=== PATIENT | female | born 1940 | race Caucasian/White ===

== ENCOUNTER 2023-08-08 02:11 | Outpatient (REF) | payer MEDICARE, SELFPAY ==
[2023-08-08 08:22] LABS: Basophils Percent Auto 0.6 % (0.2-2.0); Eosinophils Absolute Auto 0.3 10^3/uL (0.0-0.7); Eosinophils Percent Auto 3.9 % (0.9-7.0); Hematocrit 27.6 % (36.0-48.0); Hemoglobin 8.7 g/dL (12.0-16.0); Immature Granulocytes Abs Auto 0.07 10^3/uL (0.00-0.03); Lymphocytes Percent Auto 13.1 % (20.5-60.0); Mean Corpuscular HGB Conc 31.5 g/dL (29.9-35.2); Mean Corpuscular Hemoglobin 29.9 pg (26.7-34.0); Mean Corpuscular Volume 94.8 fL (81.0-99.0); Mean Platelet Volume 9.2 fL (9.5-13.5); Monocytes Absolute Auto 0.7 10^3/uL (0.3-0.8); Monocytes Percent Auto 9.9 % (1.7-12.0); Neutrophils Absolute Auto 5.2 10^3/uL (1.4-6.5); Neutrophils Percent Auto 71.5 % (43.0-75.0); Platelet Count 284 10^3/uL (150-450); Red Blood Count 2.91 10^6/uL (4.20-5.40); Red Cell Distribution Width 14.3 % (11.0-15.0); White Blood Count 7.3 10^3/uL (4.0-11.0)
[2023-08-08 08:34] LABS: Estimated Average Glucose 97 mg/dL
[2023-08-08 08:49] LABS: Alanine Aminotransferase 27 U/L (14-59); Albumin Globulin Ratio 0.7; Albumin Level 2.7 g/dL (3.4-5.0); Alkaline Phosphatase 72 U/L (46-116); Anion Gap 7.3; Aspartate Amino Transferase 21 U/L (15-37); BUN Creatinine Ratio 17.1; Bilirubin Total 0.5 mg/dL (0.2-1.0); Calcium 8.8 mg/dL (8.5-10.1); Carbon Dioxide 31.7 mmol/L (21.0-32.0); Chloride 102 mmol/L (98-107); Estimated GFR (African America >60 (>=60); Estimated GFR (Non-African Ame >60 (>=60); Globulin 3.7 g/dL; Glucose 83 mg/dL (74-106); Magnesium 1.8 mg/dL (1.8-2.4); Sodium 137 mmol/L (136-145); Thyroid Stimulating Hormone 4.268 uIU/mL (0.358-3.740); Total Protein 6.4 g/dL (6.4-8.2)
[2023-08-10 13:08] LABS: Levetiracetam (Keppra), S 20.3 ug/mL (10.0-40.0)
== END 2023-08-08 02:12 | disposition home or self-care (01) ==
LOC: LAB 02:11
PROVIDERS: PCP Family Medicine; Visit Provider Family Medicine
DX: Z51.81 Encounter for therapeutic drug level monitoring (principal); I10 Essential (primary) hypertension
CPT/HCPCS: 36415; 80053; 80177; 82306; 83036; 83735; 84443; 85025

== ENCOUNTER 2023-09-08 07:25 | Emergency (ER) | payer MEDICARE, SELFPAY ==
[2023-09-08] VITALS (20 sets, daily range): BP systolic 145–199; BP diastolic 62–97; PULSE 61–80; TEMP 36.9; O2SAT 98–99; BMI 29.0
--- NOTE | 2023-09-08 07:39 | ECG_ITS ---
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
--- NOTE | 2023-09-08 07:39 | XR_ITS ---
[address] [address] Patient Name: SANDRINE ROBERT MRN: [facility]:[id number] date: 1940 Sex: F Assigned Patient Location: ED.MAIN Current Patient Location: ER Accession/Order Number: [id number] Exam Date: 09/08/2023 07:58 Report Date: 09/08/2023 08:54 At the request of: SANDEE HARVEY Procedure: XR chest 1V EXAM: XR chest 1V , 09/08/2023 HISTORY: Chest pain COMPARISON: None. TECHNIQUE: Portable AP upright x-ray of the chest. FINDINGS: Mild rotation of patient to the right. Mild enlargement of the cardiac silhouette. Mild left basal atelectasis. Moderate atherosclerotic calcification of the aortic arch. No hilar enlargement. No focal consolidation or pulmonary edema. Bilateral shoulder joint replacement. XR/XR chest 1V IMPRESSION: Mild cardiomegaly. Mild left basal atelectasis. Electronically authenticated by: AYUSH RUSSO Date: 09/08/2023 08:54
--- OUTSIDE RECORDS SUMMARY | 2023-09-08 07:39 | XMS_ITS | CCD ---
Author Organization [facility] CliniSymi Care Team Providers Care Eye Specialist Name Role Phone AGUILAR STEVENS Unavailable Unavailable MAGALY, HARDEEP M Unavailable Unavailable Andres Ud Din Unavailable Unavailable Andres Ud Din Unavailable Unavailable GUDINO, CHRISTOPHER Unavailable Unavailable GUDINO, CHRISTOPHER Unavailable Unavailable MAGALY, HARDEEP M Unavailable Unavailable MAGALY, HARDEEP M Unavailable Unavailable MAGALY, HARDEEP M Unavailable Unavailable GUDINO, CHRISTOPHER Unavailable Unavailable GUDINO, CHRISTOPHER Unavailable Unavailable GUDINO, CHRISTOPHER Unavailable Unavailable Magaly, Hardeep M Primary Care Provider [phone] ELIAS CELESTIN Referring Unavailable EDMUNDO MENDEZ Consulting Unavailab le MAGALY, HARDEEP M Primary Care Unavailable LAURIE LEMUS Admitting Unavailable LAURIE LEMUS Attending Unavailable RASHIJUNG CHUA Consulting Unavailable BETSY DUMONT Consulting Unavailable Magaly, Hardeep M. Primary Care Provider Unavailab le Magaly, Hardeep M. Attending Provider Unavailable Mercedes Man Attending Provider Unavailable Brendan Ni Attending Provider Unavailable Royce Douglas Unavailable Magaly, Hardeep Unavailable Tonia Mcdonough Unavailable Magaly, DO Hardeep M. Primary Care Provider MD Royce Douglas Attending Provider MAGALY HARDEEP Brittany Primary Care Physician [phone] Chastity Lopez Unavailable Unavailable Kourtney Lay Unavailable Unavailable Coleen Meza Unavailable Unavailable Magaly, Hardeep M Unavailable Unavailable Unavailable Hardeep Mckenzie DO Primary Care Provider Unavailable Unavailable Unavailable Primary Care Provider Unavailabl e Magaly, DO Hardeep Soto. Primary Care Provider Magaly, DO Hardeep Soto. Attending Provider [phone] PROVIDER, UNKNOWN Attending Unavailable PROVIDER, UNKNOWN Admitting Unavailable Magaly Hardeep ZHANG Primary Care Provider BEAL ., DR ROLAN Harris Admitting Unavailable BEAL ., DR ROLAN Harris Consulting Unavailable BEAL ., DR ROLAN Harris Attending Unavailable MAGALY, DR HARDEEP Soto Primary Care Unavailable MCINTYRE ., HARRIS Consulting Unavailable BEAL ., DR ROLAN Harris Attending Unavailable BEAL ., DR ROLAN Harris Admitting Unavailable MAGALY, DR HARDEEP Soto Primary Care Unavailable BEAL ., DR ROLAN Harris Admitting Unavailable BEAL ., DR ROLAN Harris Consulting Unavailable BEAL ., DR ROLAN Harris Attending Unavailable MAGALY, DR HARDEEP Soto Primary Care Unavailable BEAL ., DR ROLAN Harris Admitting Unavailable BEAL ., DR ROLAN Harris Consulting Unavailable BEAL ., DR ROLAN Harris Attending Unavailable MAGALY, DR HARDEPE Soto Primary Care Unavailable MAGALY, DR HARDEEP Soto Primary Care Unavailable BEAL ., DR ROLAN Harris Attending Unavailable BEAL ., DR ROLAN Harris Admitting Unavailable BEAL ., DR ROLAN Harris Consulting Unavailable BEAL ., DR ROLAN Harris Admitting Unavailable BEAL ., DR ROLAN Harris Attending Unavailable MCINTYRE ., HARRIS Consulting Unavailable MAGALY, DR HARDEEP Soto Primary Care Unavailable Magaly, DO Hardeep Solano Primary Care Provider Magaly, DO Hardeep Soto. Attending Provider [phone] Unavailable Unavailable Patrick Howe Unavailable Magaly, DO Hardeep Solano Primary Care Provider MD Patrick Howe Attending Provider MD Royce Douglas Attending Provider Trudy, Dr. Angélica Enriquez Attending Candi vailable Trudy, Dr. Angélica Enriquez Referring Candi vailable Magaly, Dr. Hardeep Gracia Primary Care Unavaila ble Trudy, Dr. Angélica Enriquez Attending Candi vailable Yates, Dr. Angélica Enriquez Referring Candi vailable Magaly, Dr. Hardeep Gracia Primary Care Unavaila ble Yates, Dr. Angélica Enriquez Attending Candi vailable Magaly, Dr. Hardeep Gracia Primary Care Unavaila ble McGuinn II, Dr. Joseph Hawley Attending Unavailable Magaly, Dr. Hardeep Gracia Primary Care Unavaila ble Magaly, Dr. Hardeep Gracia Primary Care Unavaila ble Yates, Dr. Angélica Enriquez Attending Candi vailable Yates, Dr. Angélica Enriquez Referring Candi vailable Magaly, Dr. Hardeep Gracia Primary Care Unavaila ble Yates, Dr. Angélica Enriquez Attending Candi vailable Yates, Dr. Angélica Enriquez Referring Candi vailable Magaly, Dr. Hardeep Gracia Primary Care Unavaila ble Michael, Theodora Unavailable Magaly, DO Hardeep Solano Primary Care Provider Magaly, DO Hardeep Solano Attending Provider Saffle, CAMERA MAKER Valerie Fields Emergency Provider Magaly, Hardeep Soto. Primary Care Unavailable Patrick Howe Attending Unavailable Patrick Howe Admitting Unavailable Magaly, Hardeep Solano Admitting Unavailable Magaly, Hardeep Solano Attending Unavailable Magaly, Hardeep Solano Primary Care Unavailable Valerie Ponce Attending Unavailable Valerie Ponce Admitting Unavailable Magaly, Hardeep Solano Primary Care Unavailable Magaly, Hardeep M. Primary Care Unavailable Royce Douglas Attending Unavailable Royce Douglas Admitting Unavailable ANIKET GARCES Attending UnavailANIKET Barragan Attending Unavailbethany e Magaly, DO Hardeep Solano Primary Care Provider Saffle, CAMERA MAKER Valerie Fields Emergency Provider Magaly DOHardeep Primary Care Provider HARDEEP MCKENZIE Primary Care Unavailable JASS PENN Admitting Unavailable STACIA DWYER Referring Unavailable KEY GRACIA Attending Unavailable [facility] Unavailable ABUBAKR SAMER Referring Unavailable [facility] Primary Care Unavailable DELFIN DOW Attending Unavailable MAGALY, [facility] Primary Care Unavailable CHRISTOPHER CASAREZ Attending Unavailable [facility] Primary Care Unavailable NOÉ LILLY Attending Unavailable [facility] Primary Care Unavailable TIFF DRAPER Attending Unavailable SELF Referring Unavailable Unavailable Primary Care Provider UnavailStacia Jennings Attending Unavailable James Nguyen Attending Unavailable Lima ROSAS Admitting Unavailable RALPH Lima Alex Attending Unavailable Do Montez Attending Unavailable Do Montez Attending Unavailable James Nguyen Attending Unavailable ROCIO MARINELLI Attending Unavailable ROCIO MARINELLI Referring Unavailable ROCIO MARINELLI Admitting Unavailable Yates, Lindsay Admitting Unavailable Yates Lindsay Attending Unavailable Barrett Bales Attending Unavailable Chidi Marrero Admitting Unavailable Traboulssi, Mourhaf Consulting Unavailable Traboulssi, Mourhaf Consulting Unavailable Traboulssi, Mourhaf Consulting Unavailable Traboulssi, Mourhaf Consulting Unavailable Traboulssi, Mourhaf Consulting Unavailable Traboulssi, Mourhaf Consulting Unavailable Traboulssi, Mourhaf Consulting Unavailable Traboulssi, Mourhaf Consulting Unavailable Traboulssi, Mourhaf Consulting Unavailable Kamadana, Dyan Consulting Unavailable Mickie Falcon Attending Unavailable GenSilver espinosaisten Admitting Unavailable Kamadana, Dyan Consulting Unavailable Kamadana, Dyan Consulting Unavailable Hajdari, Astrit H Attending Unavailable Hajdari, Astrit H Attending Unavailable Stacia Dwyer Attending Unavailable Hank Beard Attending Unavailable Hank Beard Attending Unavailable Stacia Dwyer Attending Unavailable Stacia Dwyer Attending Unavailable James Nguyen Attending Unavailable James Nguyen Attending Unavailable EVERT PERKINS Referring Unavailable PROVIDER, UNKNOWN Admitting Unavailable PROVIDER, UNKNOWN Attending Unavailable PROVIDER, UNKNOWN Attending Unavailable STACIA DWYER Referring Unavailable JANNY PEREZ Admitting Unavailable EVERT PERKINS Referring Unavailable GAVINO COTTER Admitting Unavailable PROVIDER, UNKNOWN Attending Unavailable LADONNA, EVERT Referring Unavailable PROVIDER, UNKNOWN Attending Unavailable BEL, GAVINO Admitting Unavailable LADONNA, EVERT Referring Unavailable BEL, GAVINO Admitting Unavailable PROVIDER, UNKNOWN Attending Unavailable LADONNA, EVERT Referring Unavailable BEL, GAVINO Admitting Unavailable PROVIDER, UNKNOWN Attending Unavailable STACIA DWYER Referring Unavailable JANNY PEREZ Admitting Unavailable CONSULT, IP SURGERY NEURO Consulting Unavai NYASIA Esteves Attending Unavailable REQUEST, IP OCCUPATIONAL THERAPY SERVICE Consult ing Unavailable REQUEST, IP INSPECTOR CHIEF SERVICE Consulting Unavaila ble REQUEST, IP PHYSICAL THERAPY SERVICE Consulting Unavailable CONSULT, IP GERIATRIC Consulting Unavailabl e LADONNA, EVERT Referring Unavailable PROVIDER, UNKNOWN Attending Unavailable BEL, GAVINO Admitting Unavailable LADONNA, EVERT Referring Unavailable PROVIDER, UNKNOWN Attending Unavailable BEL, GAVINO Admitting Unavailable LADONNA, EVERT Referring Unavailable BEL, GAVINO Admitting Unavailable PROVIDER, UNKNOWN Attending Unavailable PROVIDER, UNKNOWN Admitting Unavailable PROVIDER, UNKNOWN Attending Unavailable PROVIDER, UNKNOWN Attending Unavailable PROVIDER, UNKNOWN Admitting Unavailable KYMBERLY CABRERA Attending Unavailable DERICK EDWARDS Referring Unavailable PROVIDER, UNKNOWN Admitting Unavailable LADONNA, EVERT Referring Unavailable BEL, GAVINO Admitting Unavailable PROVIDER, UNKNOWN Attending Unavailable PROVIDER, UNKNOWN Attending Unavailable STACIA DWYER Referring Unavailable PROVIDER, UNKNOWN Admitting Unavailable LADONNA, EVERT Referring Unavailable BEL, GAVINO Admitting Unavailable PROVIDER, UNKNOWN Attending Unavailable LADONNA, EVERT Referring Unavailable NYASIA POPE Attending Unavailable BEL, GAVINO Admitting Unavailable [phone], IP TEAM TRAUMA Consulting Unavail able REQUEST, IP PHYSICAL THERAPY SERVICE Consulting Unavailable REQUEST, IP OCCUPATIONAL THERAPY SERVICE Consult ing Unavailable CONSULT, NEUROCRITICAL Consulting Unavailab le CONSULT, IP ENT Consulting Unavailable REQUEST, IP INSPECTOR CHIEF SERVICE Consulting Unavaila ble JANNY PEREZ Admitting Unavailable Unavailable Unavailable Unavailable Allergies Allergy Classification Reported Allergen(s) Allergy Type Date of Onset Reaction(s) Facility amLODIPine (3 sources) amLODIPine; Translations: [amlodipine] Drug Allergy 2012 Other [facility] Anti-Epileptic Agents (4 sources) Phenytoin; Translations: [phenytoin] Drug Allergy 2023 [facility] formoterol / Mometasone (2 sources) formoterol / Mometasone Drug Allergy 2014 Other, Nausea [facility] hydroCHLOROthiazide (3 sources) hydroCHLOROthiazide; Translations: [hydrochlorothiazide ] Drug Allergy 2023 Hyponatremia (disorder), Hyponatremia [facility] Labetalol (3 sources) Labetalol; Translations: [labetalol] Drug Allergy 2012 Other [facility] NIFEdipine (1 source) NIFEdipine; Translations: [nifedipine] Drug Allergy [facility] Nitrofurantoin (2 sources) Nitrofurantoin Drug Allergy 2023 Rash [facility] Serotonin Reuptake Inhibitors (SSRIs) (2 sources) Sertraline Drug Allergy 2023 Other [facility] Valproate (3 sources) Valproate; Translations: [divalproex sodium] Drug Allergy 2003 Other [facility] (6 sources) carBAMazepine; Translations: [TEGretol] Drug Allergy 2012 [facility] Repository (6 sources) phenytoin; Translations: [Dilantin] Drug Allergy 2012 [facility] (6 sources) valproate; Translations: [Depakote] Drug Allergy 2012 [facility] Rep[facility] (20 sources) amLODIPine; Translations: [amlodipine] Drug Allergy 2012 Unknown, Other [place], [place] (20 sources) carBAMazepine; Translations: [carbamazepine] Drug Allergy 2003 Itching [place], [place] (20 sources) Labetalol; Translations: [labetalol] Drug Allergy 2012 Other (See Comments), Unknown, Other [place] (20 sources) NIFEdipine; Translations: [nifedipine] Drug Allergy 2012 Unknown [place] (1 source) Phenytoin Drug Allergy 2018 Anaphylaxis [place] (20 sources) Valproate; Translations: [DIVALPROEX SODIUM] Drug Allergy 2018 Other (See Comments), Other: See Comments, Intolerance [place] (20 sources) Phenytoin; Translations: [phenytoin] Drug Allergy 2012 Anaphylaxis [facility] (20 sources) Valproate; Translations: [divalproex sodium] Drug Allergy 2023 fine tremors, Unknown Reaction [facility] (6 sources) Phenytoin; Translations: [Dilantin CAPS] Drug Allergy [facility] [address] DO Work Phone: (14 sources) Adhesive Tape; Translations: [ADHESIVE TAPE (ROSINS)] Allergy to substance 2011 Rash [facility] Work Phone: (20 sources) formoterol / Mometasone; Translations: [MOMETASONE-FORMOTER OL] Drug Allergy 2014 Intolerance, Other, Nausea [facility] (20 sources) Hydantoin derivative anticonvulsant; Translations: [HYDANTOINS] Drug Intolerance 2003 Anaphylaxis, Anaphylactic Shock, Other [facility] (16 sources) Valproate; Translations: [VALPROIC ACID] Drug Allergy 2003 Unknown, Intolerance [facility] (4 sources) Environmental [Other] Propensity to adverse reactions 2003 [facility] Work Phone: (14 sources) Valproic Acid Analogues; Translations: [VALPROIC ACID ANALOGUES] Propensity to adverse reactions 2003 [facility] Work Phone: (20 sources) NITROFURANTOIN, MACROCRYSTALS / Nitrofurantoin, Monohydrate Drug Allergy rash across nose/ cheeks Displair [facility] [employer] Other (5 sources) amLODIPine; Translations: [Norvasc] Drug Allergy 2012 [facility] Repository (1 source) Labetalol Drug Allergy 2012 [facility] Rep[facility] (5 sources) NIFEdipine; Translations: [Procardia] Drug Allergy 2012 [facility] Rep[facility] (6 sources) NIFEdipine Drug Allergy 2023 Unknown Reaction [facility] (20 sources) Nitrofurantoin; Translations: [NITROFURANTOIN] Drug Allergy 2023 Rash [facility] (1 source) carBAMazepine Drug Allergy 2021 [facility] Repository (10 sources) hydroCHLOROthiazide; Translations: [hydrochlorothiazide ] Drug Allergy 2023 Hyponatremia (disorder) [facility] (17 sources) Sertraline; Translations: [SERTRALINE] Drug Allergy 2023 Other [facility] (15 sources) Carbamazepine Propensity to adverse reactions to drug 2003 Itching [facility] (13 sources) hydroCHLOROthiazide Drug Allergy 2023 Hyponatremia [facility] (15 sources) Nifedipine Propensity to adverse reactions to drug 2012 Other [facility] (13 sources) Valproate Drug Allergy 2003 Other [facility] (16 sources) Mastisol; Translations: [MASTISOL] Propensity to adverse reactions to drug 2011 Rash [facility] (1 source) AMLODIPINE BASE; Translations: [AMLODIPINE BASE] Propensity to adverse reactions to drug (disorder) 2012 [facility] (2 sources) MOMETASONE FURO-FORMOTEROL FUM; Translations: [MOMETASONE FURO-FORMOTEROL FUM] Propensity to adverse reactions to drug (disorder) 2014 [facility] (1 source) Mometasone Drug Allergy 2023 Unknown Reaction [facility] Medications Current Medications Medication Drug Class(es) Dates Sig (Normalized) Sig (Original) acetaminophen 32 mg/ml oral solution (20 sources) Start: 08-24-2023 End: 09-23-2023 take 20.3 mL by mouth every six hours acetaminophen (TYLENOL) 160 MG/5ML liquid Take 20.3 mL by mouth every 6 hours. 59 mL 08/24/2023 09/23/2023 Active Start: 08-17-2023 take 650 mg by mouth every six hours 650 mg, Oral, Every 6 hours, First dose (after last modification) on Sun08/17/23 at 1130, Until Discontinued Start: 08-13-2023 End: 08-17-2023 650 mg, Oral, EVERY 4 HOURS PRN, Starting on Sun08/13/23 at 0206, Until Sun08/17/23 at 1056, Mild Pain (pain score 1,2,3) Start: 08-04-2023 End: 08-11-2023 take 1-2 tablets by mouth every six hours as needed acetaminophen (TYLENOL) 325 mg tablet Take 1 to 2 Tablets by mouth every 6 hours as needed for up to 7 days. 56 Tablet 08/04/2023 08/11/2023 Active Start: 07-29-2023 take 650 mg by mouth every six hours 650 mg, Oral, Every 6 hours, First dose on 07/29/23 at 1718, Until Discontinued Start: 05-30-2023 take 325 mg by mouth every six hours Acetaminophen Active 325 MG PO Every 6 hours May 30, 2023 12:00am Start: 05-14-2023 End: 05-30-2023 take 1 tablet by mouth every six hours as needed Acetaminophen Discontinued 1 TAB PO Every 6 hours May 14, 2023 1:00am May 30, 2023 3:26pm [employer]TextSi tablet as needed Orally every 6 hrs; Note: Source Status: Taking; Provider: Michael Yip ( ) Start: 05-07-2023 take 2 tablets enter al route every four hours as needed acetaminophen (TYLENOL) 325 mg tablet 2 tablets by ORAL/FEEDING TUBE route every 4 hours as needed for pain. 0 05/07/2023 Active Start: 06-29-2022 take 2 tablets by mo uth every six hours as needed for pain acetaminophen 325 mg Tab 650 mg = 2 tab(s), Oral, q6hr, PRN Pain, Refills(s) 0 Start Date: 06/29/22 Status: Ordered Start: 12-14-2018 650 mg, Oral, EVERY 4 HOURS PRN, Pain Mild (1-3), Fever, For temp greater than 100.5 F (38 C), Starting 12/14/18 at 2314 Maximum dose of acetaminophen is 4000 mg from all sources in 24 hours. take 1 tablet by ramo th every six hours Acetaminophen 500 MG 1 tablet as needed Orally every 6 hrs Active Comment on above: 2 tablets by ORAL/FE EDING TUBE route every 4 hours as needed for pain. [id number] 200 actuat albuterol 0.09 mg/actuat metered dose inhaler (20 sources) beta2-Adrenergic Agonist Start: 08-15-2023 Albuterol Sulfate Active INHALATION August 15, 2023 12:00am Start: 08-13-2023 Start: 08-02-2023 take 1 puff(s) by in halation every four hours as needed 1 Puff, Inhalation, EVERY 4 HOURS PRN, Starting on Angely 08/02/23 at 0941, Until Discontinued, Shortness of Breath, Wheezing Start: 03-21-2022 Albuterol Sulf ate (2.5 MG/3ML) 0.083% Inhalation Nebulization Solution INHALE 1 vial via NEBULIZER THREE TIMES DAILY NEEDED FOR 14 DAYS Quantity: 180 Refills: 0 Ordered: 21-Mar-2022 DO Start : 21-Mar-2022 Active Start: 12-17-2018 albuterol (PRO VENTIL) nebulizer solution 2.5 mg Start: 01-15-2018 Albuterol Sulf ate (2.5 MG/3ML) 0.083% 3 ml as needed Inhalation Three times a day for 14 days Jan, Active take 2 puff(s) by in halation every six hours as needed for wheezing albuterol (PROVENTIL HFA) INHALATION HFA inhaler (VENTOLIN,PROAIR,PROVENTIL) 90mcg INHALE 2 PUFFS EVERY 6 HOURS NEEDED FOR WHEEZING Active take 2 puff(s) by in halation every four hours as needed albuterol HFA (PROVENTIL HFA, VENTOLIN HFA) 90 mcg/actuation inhaler Inhale 2 Puffs as instructed every 4 hours as needed. 0 Active Comment on above: Inhale 2 Puffs as in structed every 4 hours as needed. Albuterol (Eqv-ProAir HFA) 90 mcg/inh inhalation aerosol (5 sources) Start: 07-11-19 take 2 puff(s) by inhalation every six hours Albuterol (Eqv-ProAir HFA) 90 mcg/inh inhalation aerosol 2 puff(s), Inhalation, q6hr Wheezing, 6.7 gm, Refill(s) 0, [id number], 170, cm, 07/08/23 22:00:00 EDT, Height/Length Dosing, 83.6, kg, 07/08/23 22:00:00 EDT, Weight Dosing Start Date: 07/11/23 Status: Ordered amantadine hydrochloride 10 mg/ml oral solution (6 sources) Influenza A M2 Protein Inhibitor Start: 08-24-19 End: 10-23-19 24 take 10 mL by mouth twice daily amantadine (SYMMETREL) 50 MG/5ML SOLN oral syrup 10 mL by NG Tube route 2 times daily. 473 mL 08/24/2023 10/23/2023 Active Start: 08-23-2023 100 mg, NG Tub e, 2 TIMES DAILY, First dose on Angely 08/23/23 at 2230, Until Discontinued Start: 08-18-2023 End: 08-23-2023 take 100 mg by mouth twice daily 100 mg, Oral, 2 TIMES DAILY, First dose on 08/18/23 at 2000, Until Discontinued amoxicillin 875 mg / clavulanate 125 mg oral tablet (4 sources) Penicillin-class Antibacterial Start: 07-04-2023 End: 08-04-2023 amoxicillin-clavulanate (AUGMENTIN) 875-125 MG per tablet 07/04/2023 08/04/2023 Discontinued Start: 07-04-2023 End: 09-03-2023 take 1 tablet by mouth every twelve hours Amoxicillin-Pot Clavulanate Discontinued 1 TAB PO Every 12 hours 14 7 July 04, 2023 12:00am September 03, 2023 3:52pm ascorbic acid 250 mg chewable tablet (20 sources) Vitamin C End: 07-29-2023 take 250 mg by mouth every twelve hours Ascorbic Acid 250 MG CHEW Take by mouth every 12 hours. Active take 1 tablet by mouth every twe lve hours Vitamin C 250 MG 1 tablet Orally twice a day Active B Complex Vitamins CAPS (15 sources) take 1 capsule by mo ut once daily B Complex Vitamins CAPS Take 1 Capsule by mouth daily. Suspended take 1 capsule by mouth once [place] B Complex Vitamins CAPS Take 1 Capsule by mouth daily. Active B Complex Vitamins capsule (13 sources) take 1 capsule by mo uth once daily B Complex Vitamins capsule Take 1 capsule by mouth once daily. 0 Suspended take 1 capsule by mouth once [place] B Complex Vitamins capsule Take 1 capsule by mouth once daily. 0 Active Comment on above: Take 1 capsule by mo uth once daily. benoxinate hydrochloride 4 mg/ml / fluorescein sodium 3 mg/ml ophthalmic solution (2 sources) Diagnostic Dye Start: 05-25-2023 End: 05-26-2023 fluorescein-benoxi waqar 0.3-0.4 % 1 Drop (FLURESS) Start: 12-27-2021 End: 12-28-2021 fluorescein-benoxinate 0.25- 0.4 % 1 Drop (FLURESS) benzonatate 200 mg oral capsule (19 sources) Non-narcotic Antitussive Start: 09-03-2023 Benzonatate Active 200 MG PO 2-3 TIMES PER DAY September 03, 2023 12:00am Start: 07-11-2023 End: 07-21-2023 take 1 capsule by mouth three times daily as needed for cough benzonatate (TESSALON) 200 MG capsule TAKE 1 CAPSULE BY MOUTH THREE TIMES DAILY FOR 10 DAYS NEEDED FOR COUGH 07/11/2023 Active calcium carbonate 1250 mg or al tablet (20 sources) calcium, element al, (OSCAL,) 500 MG tablet Take by mouth every 24 hours. Active take 1 tablet by ramo th every twenty-four hours Calcium 500 MG 1 tablet with meals Orally daily Active take 1 tablet by mouth every twe lve hours Calcium 500 MG 1 tablet with meals Orally Twice a day Active cephalexin 500 mg oral capsule (13 sources) Cephalosporin Antibacterial Start: 02-02-2022 End: 02-07-2022 take 1 capsule by mouth every twelve hours Keflex 500 mg Cap 500 mg = 1 cap(s), Oral, q12hr, X 5 day(s), # 10 cap(s), Refills(s) 0, Pharmacy: [id number], 170, cm, 02/02/22 5:38:00 EST, Height/Length Dosing, 90, kg, 02/02/22 5:38:00 EST, Weight Dosing Start Date: 02/02/22 Stop Date: 02/07/22 Status: Ordered Start: 05-16-2019 End: 08-29-2019 take 2 capsules by mouth twice daily Cephalexin (Keflex) 500 mg capsule Discontinued 1000 MG PO Twice daily 40 May 16, 2019 1:00am August 29, 2019 1:53pm cetirizine hydrochloride 10 mg oral tablet (20 sources) Histamine-1 Receptor Antagonist Start: 04-29-2018 take 10 mg by mouth once daily as needed Zyrtec 10 mg, Oral, Daily, PRN Allergy symptoms, Refills(s) 0 Start Date: 04/29/18 Status: Ordered Start: 08-01-2017 End: 06-24-2024 take 1 tablet by mouth once daily Cetirizine (Zyrtec) 10 mg Tablet,Disintegrating Discontinued 10 MG PO Daily August 01, 2017 12:00am September 03, 2023 3:56pm Comment on above: Cetirizine Cetirizin e Active 10 MG Oral Daily August 01, 2017 3:16pm 08-01-2017 [facility] ([id number]) chlorhexidine gluconate 1.2 mg/ml mouthwash (5 sources) Start: 08-17-19 End: 10-23-19 take 15 mL by mouth twice daily chlorhexidine (PERIDEX) 0.12 % oral solution Take 15 mL by mouth 2 times daily. 118 mL 3 08/24/2023 10/23/2023 Active cholecalciferol 0.025 mg oral capsule (20 sources) Vitamin D Start: 05-14-19 Cholecalciferol (Vitamin D-3) 25 MCG (1000 UT) CAPS Cholecalciferol (Vitamin D3) Active PO Daily May 14, 2023 1:00am FreeTextSig: Orally Daily; Note: Source Status: Taking; Provider: Michael Yip ( ) 05/14/2023 Active Start: 05-14-2023 End: 09-03-2023 Cholecalciferol (Vitamin D3) Discontinued PO Daily May 14, 2023 1:00am September 03, 2023 3:47pm FreeTextSig: Orally Daily; Note: Source Status: Taking; Provider: Michael Yip ( ) Vitamin D-3 25 M CG (1000 UT) Oral Capsule TAKE DIRECTED. Quantity: 0 Refills: 0 Ordered: 23-Aug-2022 DO Active Comment on above: Take by mouth once d aily. Co Q 10 100 MG (20 sources) take 1 tablet by ramo th once daily Co Q 10 100 MG one tab Orally once a day Active Co Q 10 100 MG a s directed Orally Active Docosahexaenoate (20 sources) Start: 12-22-2021 take 1 capsule by mouth once daily DOCOSAHEXAENOIC ACID ORAL Take 1 Capsule by mouth daily. 12/22/2021 Suspended Start: 12-22-2021 take 1 capsule by mo uth once daily DOCOSAHEXAENOIC ACID ORAL Take 1 Capsule by mouth daily. 12/22/2021 Active Start: 12-22-2021 take 1 capsule by mo uth once daily DOCOSAHEXAENOIC ACID ORAL Take 1 capsule by mouth once daily. 0 12/22/2021 Active Comment on above: Take 1 capsule by mo uth once daily. doxazosin 4 mg oral tablet (5 sources) alpha-Adrenergic Rudi Start: 08-16-2023 End: 09-24-2023 take 1 tablet by mouth once daily doxazosin (CARDURA) 4 MG tablet Take 1 Tablet by mouth daily. 30 Tablet 08/25/2023 09/24/2023 Active doxycycline hyclate 100 mg oral capsule (5 sources) Tetracycline-clas s Drug Start: 07-11-2023 End: 07-21-2023 take 1 capsule by mouth twice daily doxycycline hyclate 100 mg Cap 100 mg = 1 cap(s), Oral, BID, X 10 day(s), # 20 cap(s), Refills(s) 0, Pharmacy: [id number], 170, cm, 07/08/23 22:00:00 EDT, Height/Length Dosing, 83.6, kg, 07/08/23 22:00:00 EDT, Weight Dosing Start Date: 07/11/23 Stop Date: 07/21/23 Status: Ordered Start: 12-18-2018 doxycycline hy clate (VIBRA-TABS) tablet 100 mg Start: 12-18-2018 End: 12-25-2018 take 1 tablet by mouth twice daily doxycycline hyclate (VIBRA-TABS) 100 MG tablet Take 1 tablet by mouth 2 times daily for 7 days 14 tablet 0 12/18/2018 12/25/2018 Active Fish Oils (20 sources) Start: 04-23-2011 take 1 capsule by mo ut at bedtime Fish Oil = 1 cap(s), Oral, Bedtime, Refills(s) 0 Start Date: 04/23/11 Status: Ordered take 1 capsule by mouth once elmer ly Fish Oil 1000 MG 1 capsule Orally once daily Active take 1 capsule by mouth twice da sophia Fish Oil 1000 MG 1 capsule Orally Twice a day Active take 1 capsule by mouth once elmer ly Fish Oil 1000 MG 1 capsule Orally Once a day Active folic acid 1 mg oral tablet (4 sources) Start: 08-24-2023 End: 08-27-2023 take 1 tablet by mouth once daily folic acid 1 MG tablet Take 1 Tablet by mouth daily for 2 doses. 2 Tablet 08/25/2023 Active front wheeled walker dx left knee hematoma (9 sources) Start: 11-11-2018 front wheeled walker dx left knee hematoma front wheeled walker dx left knee hematoma, Print Requisition, Compound Start Date: 11/11/18 Status: Ordered gabapentin 300 mg oral capsule (20 sources) Anti-epileptic Agent Start: 01-25-2023 gabapentin (NEURONTIN) 400 mg capsule Take 300 mg by mouth. 0 01/25/2023 Active Start: 04-23-2011 End: 09-03-2023 gabapentin (NEURONTIN) 300 M G capsule 07/09/2023 Active take 1 capsule by mo uth every eight hours Gabapentin 400 MG 1 capsule Orally Three times a day for 30 days Active Comment on above: Take 300 mg by mouth three times daily. Take 300 mg by mouth . 12 hr guaiFENesin 600 mg extended release oral tablet (20 sources) Start: 09-03-2023 take 1 tablet by mouth twice daily, then take 1 tablet by mouth every twelve hours Guaifenesin (Mucinex) 600 mg tablet extended release 12hr Active 600 MG PO Twice daily September 03, 2023 12:00am Start: 08-02-2023 take 1200 mg by mout h twice daily 1,200 mg, Oral, 2 TIMES DAILY, First dose on Angely 08/02/23 at 1030, Until Discontinued Start: 07-11-2023 guaifenesin (M UCINEX) 600 MG SR tablet Take 1,200 mg by mouth. 07/11/2023 Active 1 ml heparin sodium, porcine 5000 unt/ml prefilled syringe (5 sources) Unfractionated Heparin, Anti-coagulant Start: 08-24-2023 End: 09-07-2023 inject 1 mL by subcutaneous injection every eight hours Heparin Sodium, Porcine, (heparin, porcine,) 5,000 units/mL injection Inject 1 mL under the skin every 8 hours for 14 days. Heparin to be discontinued at the discretion of SNF provider for DVT prophylaxis. 42 mL 08/24/2023 09/07/2023 Active Start: 08-17-2023 inject 5000 [IU] by subcutaneous injection every eight hours 5,000 Units, Subcutaneous, EVERY 8 HOURS, First dose on Sun08/17/23 at 1130, Until Discontinued sodium hypochlorite 1.25 mg/ ml topical solution (1 source) Start: 12-16-2018 sodium hypochl orite (DAKINS) 0.125 % external solution Immune Support Vitamin C - (20 sources) take 1 tablet by mouth once aleksander y Immune Support Vitamin C - 1 Tablet Orally Daily Active iv contrast (will be provided with radiology test) (1 source) Start: 07-06-2023 End: 2023 inject 1 dose intravenously once iv contrast (will be provided with radiology test) MRI Brain Inject, intravenously, once for 1 dose.No IV access, insert saline lock prior to beginning of sedation, infusion, injection of imaging exam.Discontinue saline lock post exam. If Pt. has a central line or IVAD, may access for administration according to line specific nursing protocol.Once exam is complete flush line and de-access according to line specific nursing protocol in the MR contrast administration guidelines link 1 Each 0 07/06/2023 2023 Active levETIRAcetam 100 mg/ml oral solution (20 sources) Start: 08-24-2023 End: 10-23-2023 take 5 mL by mouth twice daily levETIRAcetam (KEPPRA) 100 MG/ML oral solution Take 5 mL by mouth 2 times daily. 240 mL 1 08/24/2023 10/23/2023 Active Start: 08-19-2023 take 500 mg by mouth twice daily 500 mg, Oral, 2 TIMES DAILY, First dose on Sun08/19/23 at 0330, Until Discontinued Start: 08-16-2023 End: 08-19-2023 500 mg, Intravenous, EVERY 1 2 HOURS, First dose on Angely 08/16/23 at 0030, Until Discontinued, at 400 mL/hr Start: 08-13-2023 End: 08-14-2023 take 500 mg by mouth at bedtime 500 mg, Oral, AT BEDTI ME, First dose on Sun08/13/23 at 2200, Until Discontinued Start: 08-01-2023 End: 08-05-2023 750 mg, Oral, 2 TIMES DAILY, 8 doses, First dose (after last modification) on Sun08/01/23 at 2100, Last dose on 08/05/23 at 0900 Start: 07-31-2023 End: 08-01-2023 750 mg, Oral, 2 TIMES DAILY, 11 doses, First dose on Sun07/31/23 at 1800, Last dose on Sun08/05/23 at 2100 Start: 07-09-2023 Keppra 500 mg, Bedtime, Refills(s) 0 Start Date: 07/09/23 Status: Ordered Start: 06-15-2023 End: 06-14-2024 take 1 tablet by mouth once daily Levetiracetam (Keppra Xr) 500 mg tablet extended release 24 hr Discontinued 500 MG PO Daily June 28, 2023 12:00am September 03, 2023 3:54pm Start: 05-07-2023 End: 06-28-2023 take 1 tablet by mouth twice daily Levetiracetam (Keppra) 500 mg tablet Discontinued 500 MG PO Twice daily May 14, 2023 1:00am June 06, 2023 1:39pm Comment on above: Take 1 tablet by ramo th two times a day. Take 1 tablet by ramo th daily at bedtime. levoFLOXacin 750 mg oral tablet (2 sources) Quinolone Antimicrobial Start: 12-19-19 End: 12-26-19 take 1 tablet by mouth once daily levofloxacin (LEVAQUIN) 750 MG tablet Take 1 tablet by mouth daily for 7 days 7 tablet 1 12/18/2018 12/25/2018 Active lisinopril 5 mg oral tablet (20 sources) Angiotensin Converting Enzyme Inhibitor Start: 08-17-19 End: 09-24-19 take 1 tablet by mouth once daily lisinopril (ZESTRIL) 5 MG tablet Take 1 Tablet by mouth daily. 30 Tablet 08/25/2023 09/24/2023 Active Start: 08-15-2023 End: 08-16-2023 take 2.5 mg by mouth once daily 2.5 mg, Oral, DAILY, F irst dose on Sun08/15/23 at 1530, Until Discontinued Start: 02-12-2023 End: 08-04-2023 take 5 mg by mouth twice daily Lisinopril Discontinued 5 MG PO Twice daily May 14, 2023 1:00am May 14, 2023 2:24pm Start: 08-23-2022 take 1 tablet by ramo th twice daily Lisinopril 2.5 MG Oral Tablet TAKE 1 TABLET TWICE DAILY. Quantity: 180 Refills: 3 Ordered: 23-Aug-2022 Angélica Yates MD Start : 23-Aug-2022 Active Start: 08-04-2022 End: 08-04-2022 lisinopril 2.5 mg Tab 2.5 mg = 1 tab(s), Tab, Oral, Start date 08/04/22 9:00:00 EDT, 08/03/22 8:12:00 EDT Start Date: 08/04/22 Stop Date: 08/04/22 Status: Completed Start: 08-03-2022 take 1 tablet by ramo th once daily lisinopril 2.5 mg Tab 2.5 mg = 1 tab(s), Oral, Daily, # 30 tab(s), Refills(s) 0, Pharmacy: [id number], 170.2, cm, 08/01/22 17:13:00 EDT, Height/Length Dosing, 83, kg, 08/01/22 17:13:00 EDT, Weight Dosing Start Date: 08/03/22 Status: Ordered Start: 12-16-2021 End: 06-29-2022 take 1 tablet by mouth once daily lisinopril 2.5 mg Tab 2.5 mg = 1 tab(s), Oral, Daily, # 30 tab(s), Refills(s) 0, Pharmacy: [id number], 170, cm, 12/15/21 11:14:00 EDT, Height/Length Dosing, 86.5, kg, 12/15/21 11:14:00 EDT, Weight Dosing Start Date: 12/16/21 Status: Ordered take 1 tablet by ramo th once daily Lisinopril 20 MG 1 tablet Orally Once a day Active MagOx 400 400 (241.3 Mg) MG (20 sources) take 1 tablet by ramo th once daily at mealtime MagOx 400 400 (241.3 Mg) MG 1 tablet with food Orally Once a day Active melatonin 3 mg oral tablet (16 sources) Start: 07-31-2023 End: 11-02-2023 take 1 tablet by mouth at bedtime melatonin 3 MG TABS tablet Take 1 Tablet by mouth at bedtime. 90 Tablet 08/04/2023 11/02/2023 Active metoprolol tartrate 25 mg oral tablet (20 sources) beta-Adrenergic Rudi Start: 09-03-2023 take 25 mg by mouth twice daily Metoprolol Tartrate Active 25 MG PO Twice daily September 03, 2023 4:00pm Start: 07-11-2023 End: 07-11-2023 metoprolol 12.5 mg = 0.5 tab (s), Tab, Oral, Stop date 07/11/23 9:40:25 AM EDT, Start date 07/11/23 9:00:00 AM EDT Start Date: 07/11/23 Stop Date: 07/11/23 Status: Completed Start: 05-07-2023 metoprolol (LO PRESSOR) 25 MG tablet Take 12.5 mg by mouth. 05/07/2023 Active Start: 05-07-2023 End: 06-06-2023 take 1 tablet by mouth every twelve hours metoprolol tartrate, short acting, (LOPRESSOR) 25 mg tablet Take 1/2 tablet by mouth every 12 hours. 30 tablet 0 05/07/2023 Active Start: 04-30-2023 End: 09-03-2023 take 12.5 mg by mouth twice daily Metoprolol Tartrate Discontinued 12.5 MG PO Twice daily September 03, 2023 3:44pm September 03, 2023 4:02pm Start: 08-04-2022 End: 08-04-2022 metoprolol 25 mg ER Tab 12.5 mg = 0.5 tab(s), Tab-ER, Oral, Start date 08/04/22 9:00:00 EDT, 08/01/22 21:00:00 EDT Start Date: 08/04/22 Stop Date: 08/04/22 Status: Completed Start: 08-03-2022 End: 08-03-2022 metoprolol 25 mg ER Tab 12.5 mg = 0.5 tab(s), Oral, Daily, # 30 tab(s), Refills(s) 0, Pharmacy: [facility] #[id number], 170.2, cm, 08/01/22 17:13:00 EDT, Height/Length Dosing, 83, kg, 08/01/22 17:13:00 EDT, Weight Dosing Start Date: 08/03/22 Status: Ordered Start: 08-02-2022 End: 08-02-2022 metoprolol 25 mg ER Tab 12.5 mg = 0.5 tab(s), Tab-ER, Oral, Start date 08/02/22 9:00:00 EDT, 08/01/22 21:00:00 EDT Start Date: 08/02/22 Stop Date: 08/02/22 Status: Completed Start: 06-29-2022 End: 06-29-2022 metoprolol 25 mg ER Tab 12.5 mg = 0.5 tab(s), Oral, Daily, # 30 tab(s), Refills(s) 0, Pharmacy: [facility] #[id number], 170, cm, 06/27/22 10:09:00 EDT, Height/Length Dosing, 90, kg, 06/27/22 10:09:00 EDT, Weight Dosing Start Date: 06/29/22 Status: Ordered Start: 06-28-2022 End: 06-28-2022 metoprolol 25 mg ER Tab 12.5 mg = 0.5 tab(s), Tab-ER, Oral, Start date 06/28/22 9:00:00 EDT, 06/27/22 21:30:00 EDT Start Date: 06/28/22 Stop Date: 06/28/22 Status: Completed Start: 12-16-2021 End: 12-16-2021 metoprolol 25 mg ER Tab 12.5 mg = 0.5 tab(s), Tab-ER, Oral, Start date 12/16/21 9:00:00 EDT, 12/15/21 18:39:00 EDT Start Date: 12/16/21 Stop Date: 12/16/21 Status: Completed Start: 12-13-2021 End: 12-13-2021 metoprolol 25 mg ER Tab 12.5 mg = 0.5 tab(s), Tab-ER, Oral, Start date 12/13/21 9:00:00 EDT, 12/12/21 7:21:00 EDT Start Date: 12/13/21 Stop Date: 12/13/21 Status: Completed Start: 12-12-2021 End: 12-12-2021 metoprolol 25 mg ER Tab 12.5 mg = 0.5 tab(s), Tab-ER, Oral, Start date 12/12/21 9:00:00 EDT, 12/12/21 7:21:00 EDT Start Date: 12/12/21 Stop Date: 12/12/21 Status: Completed Start: 12-02-2021 End: 12-02-2021 metoprolol 25 mg ER Tab 12.5 mg = 0.5 tab(s), Tab-ER, Oral, Start date 12/02/21 9:00:00 EDT, 12/01/21 14:47:00 EDT Start Date: 12/02/21 Stop Date: 12/02/21 Status: Completed Start: 12-02-2021 metoprolol 25 mg ER Tab 12.5 mg = 0.5 tab(s), Oral, Daily, # 30 tab(s), Refills(s) 0, Pharmacy: [id number], 170.2, cm, 11/30/21 20:21:00 EDT, Height/Length Dosing, 87.4, kg, 11/30/21 20:21:00 EDT, Weight Dosing Start Date: 12/02/21 Status: Ordered Start: 11-24-2021 End: 12-25-2021 Metoprolol tartrate 25 mg Ta b 25 mg = 1 tab(s), Tab, Oral, Start date 12/01/21 9:00:00 EDT, 11/30/21 23:33:00 EDT Start Date: 12/01/21 Stop Date: 12/01/21 Status: Completed Start: 08-01-2017 End: 01-03-2019 take 50 mg by mouth once daily Metoprolol Succinate Di scontinued 50 MG PO Daily August 01, 2017 12:00am January 03, 2019 9:38am End: 07-06-2023 metoprolol succinate ER (TOP ROL XL) 50 mg 24 hr tablet take 0.5 tablet by m outh twice daily Metoprolol Succinate ER 25 MG 1/2 tablet Orally twice daily for 30 days Active take 0.5 tablet by m outh twice daily Metoprolol Tartrate 25 MG Oral Tablet 1/2 tab twice daily Quantity: 90 Refills: 3 Ordered: 06-Oct-2022 Angélica Yates MD Active take 0.5 tablet by m outh once daily Metoprolol Succinate ER 25 MG 1/2 tablet Orally Once a day for 30 days Active Comment on above: Take 1/2 tablet by m outh every 12 hours. montelukast 10 mg oral tablet (20 sources) Leukotriene Receptor Antagonist Start: take 10 mg by mouth once daily Montelukast Active 10 MG PO Daily June 28, 2021 12:00am Comment on above: Take 10 mg by mouth once daily. Multivitamin preparation (13 sources) Start: 2 multivitamin (MULTIPLE VITAMINS ORAL) Refill(s) 0 0 04/23/2011 Suspended Start: 04-23-2011 multivitamin ( MULTIPLE VITAMINS ORAL) Refill(s) 0 0 04/23/2011 Active Comment on above: Refill(s) 0 Xpyounjrydpg-Uukd-Erp ic Acid (Centrum Complete) 18-400 mg-mcg tablet (3 sources) Start: 06-28-19 take 1 tablet by mouth once daily Uwfkmqjaifwb-Zvdg-Lnp ic Acid (Centrum Complete) 18-400 mg-mcg tablet Active 1 TAB PO Daily June 28, 2023 12:00am Multivitamins and Minerals oral tablet (20 sources) Start: 04-23-19 12 Multivitamins and Minerals oral tablet Refill(s) 0 Start Date: 04/23/11 Status: Ordered Nitro Sublingual 0.4 0.4mg (10 sources) Nitro Sublingual 0.4 0.4mg 1 Sublingual Every 5min x3 Active nitrofurantoin, macrocrystals 25 mg / nitrofurantoin, monohydrate 75 mg oral capsule (3 sources) Nitrofuran Antibacterial Start: 02-01-20 take 1 capsule by mouth every twelve hours Nitrofurantoin Monohyd Macro 100 MG 1 capsule with food Orally every 12 hrs for 5 day(s) Jan, Active nitroglycerin 0.4 mg sublingual tablet (20 sources) Nitrate Vasodilator Start: 04-30-19 24 Nitroglycerin Active 0.4 MG SUBLINGUAL Q5M April 30, 2023 1:00am Start: 01-18-2023 nitroglycerin sublingual (NITROQUICK) 0.4 mg SL tablet DISSOLVE 1 TABLET UNDER THE TONGUE NEEDED FOR CHEST PAIN- MAY REPEAT EVERY 5 MINUTES IF NEEDED ( MAX 3 DOSES.- IF NO RELIEF CALL 911) 0 04/22/2023 Active Start: 07-25-2022 nitroglycerin (NITROSTAT) 0.4 MG sublingual tablet Nitroglycerin Active 0.4 MG SUBLINGUAL Q5M April 30, 2023 1:00am 07/25/2022 Active Start: 07-25-2022 Nitroglycerin 0.4 MG Sublingual Tablet Sublingual As directed. Quantity: 25 Refills: 3 Ordered: 25-Jul-2022 Angélica Yates MD Start : 25-Jul-2022 Active new Comment on above: DISSOLVE 1 TABLET UN FRANCHESKA THE TONGUE NEEDED FOR CHEST PAIN- MAY REPEAT EVERY 5 MINUTES IF NEEDED ( MAX 3 DOSES.- IF NO RELIEF CALL 911) omega 7-ieu-xwy-fish oil (FISH OIL) 100-160-1,000 mg cap (13 sources) Start: 04-23-2011 omega 2-nza-xij-fish oil (FISH OIL) 100-160-1,000 mg cap Take by mouth. 0 04/23/2011 Suspended Start: 04-23-2011 omega 3-dha-ep a-fish oil (FISH OIL) 100-160-1,000 mg cap Take by mouth. 0 04/23/2011 Active Comment on above: Take by mouth. ondansetron 4 mg disintegrating oral tablet (1 source) Serotonin-3 Receptor Antagonist Start: 4 take 4 mg by mouth twice daily Ondansetron Active 4 MG PO Twice daily September 03, 2023 12:00am outpatient PT dx left knee hematoma (9 sources) Start: 9 outpatient PT dx left knee hematoma outpatient PT dx left knee hematoma, Print Requisition, Compound Start Date: 11/11/18 Status: Ordered oxyCODONE hydrochloride 1 mg/ml oral solution (2 sources) Opioid Agonist Start: 4 Start: 07-29-2023 5 mg, Oral, EV YAS 4 HOURS PRN, Starting on 07/29/23 at 1647, Until Discontinued, Severe Pain (pain score 7,8,9,10) phenylephrine hydrochloride 25 mg/ml ophthalmic solution (2 sources) alpha-1 Adrenergic Agonist Start: 05-25-2023 End: 05-26-2023 PHENYLephrine 2.5 % 1 Drop (AK-DILATE, PUMA-SYNEPHRINE) Start: 12-27-2021 End: 12-28-2021 PHENYLephrine 2.5 % 1 Drop ( AK-DILATE, PUMA-SYNEPHRINE) polyethylene glycol 3350 [id number] mg powder for oral solution (6 sources) Osmotic Laxative Start: 08-16-2023 polyethylene glycol (MIRALAX) packet Dissolve 1 Packet (17 g total) in 8 ounces of liquid and drink daily. 12 Each 3 08/25/2023 Active Start: 07-31-2023 17 g, Oral, DA SOPHIA, First dose on Sun07/31/23 at 0900, Until Discontinued pravastatin sodium 40 mg oral tablet (20 sources) HMG-CoA Reductase Inhibitor Start: 11-20-2022 take 1 tablet by mouth once daily Pravastatin Active 1 TAB PO Daily May 14, 2023 1:00am FreeTextSi tablet Orally Once a day; Note: Source Status: Taking; Provider: Michael Yip ( ) Start: 08-23-2022 take 1 tablet by ramo at bedtime Pravastatin Sodium 20 MG Oral Tablet TAKE 1 TABLET AT BEDTIME. Quantity: 90 Refills: 3 Ordered: 23-Aug-2022 Angélica Yates MD Start : 23-Aug-2022 Active new Comment on above: Take 1 tablet by ramo daily at bedtime. predniSONE 20 mg oral tablet (5 sources) Start: 09-03-2023 take 20 mg by mouth once daily Prednisone Active 20 MG PO Daily September 03, 2023 12:00am Start: 04-09-2019 take 3 tablets by mo [facility] every twenty-four hours predniSONE 20 MG 3 tablet Orally Once a day for 5 day(s) Mar, Active proparacaine hydrochloride 5 mg/ml ophthalmic solution (2 sources) Local Anesthetic Start: 05-25-2023 End: 05-26-2023 proparacaine 0.5 % 1 Drop (ALCAINE) Start: 12-27-2021 End: 12-28-2021 proparacaine 0.5 % 1 Drop (A LCAINE) Sennosides (5 sources) Start: 05-30-2023 take 8.6 mg by mouth once daily Sennosides Active 8.6 MG PO Daily May 30, 2023 12:00am sennosides, longterm 8.6 mg oral tablet (16 sources) Start: 07-29-2023 End: 09-03-2023 take 1 tablet by mouth once daily as needed senna (SENOKOT) 8.6 MG tablet Take 1 Tablet by mouth daily as needed. 30 Tablet 08/04/2023 Active spironolactone 25 mg oral tablet (20 sources) Aldosterone Antagonist Start: 06-19-2023 End: 07-16-2023 spironolactone (ALDACTONE) 25 MG tablet Take 1 Tablet by mouth. 06/19/2023 Active sulfamethoxazole 40 mg/ml / trimethoprim 8 mg/ml oral suspension (10 sources) Dihydrofolate Reductase Inhibitor Antibacterial, Sulfonamide Antimicrobial Start: 08-16-2023 take 15 mL by mouth once daily multivitamins with minerals (CEROVITE) LIQD oral liquid 15 mL by NG Tube route daily. 236 mL 08/25/2023 Active Start: 04-01-2015 take 1 tablet by ramo th every twelve hours Bactrim DS 800-160 MG 1 tablet Orally twice a day for 7 day(s) Mar, Active ticagrelor 90 mg oral tablet (20 sources) Start: 11-25-2021 take 1 tablet by mouth twice daily ticagrelor 90 mg oral tablet 90 mg = 1 tab(s), Oral, BID, # 60 tab(s), Refills(s) 0, Pharmacy: [id number], 170.2, cm, 11/23/21 8:42:00 EDT, Height/Length Dosing, 88, kg, 11/23/21 8:42:00 EDT, Weight Dosing Start Date: 11/25/21 Status: Ordered tropicamide 10 mg/ml ophthalmic solution (2 sources) Anticholinergic Start: 05-25-2023 End: 05-26-2023 tropicamide 1 % 1 Drop (MYDRIACYL) Start: 12-27-2021 End: 12-28-2021 tropicamide 1 % 1 Drop (MYDR IACYL) TUBE FEED (3 sources) Start: 08-24-2023 NG Tube, at 15 -45 mL/hr, CONTINUOUS, Starting on Sun08/24/23 at 1330, Until Discontinued, Tube Feeding: With Meal Tray, Specify Diet: Regular, Tube feeding formula: Nutren 1.5, Method of Administration? Pump Start: 08-23-2023 End: 08-24-2023 NG Tube, at 15-45 mL/hr, CON TINUOUS, Starting on Sun08/23/23 at 2200, Until Sun08/24/23 at 1237, Tube Feeding: No Meal Tray, Tube feeding formula: Nutren 1.5, Method of Administration? Pump Start: 08-16-2023 End: 08-23-2023 NG Tube, at 15-45 mL/hr, CON TINUOUS, Starting on Sun08/16/23 at 1430, Until Sun08/23/23 at 2112, Tube Feeding: No Meal Tray, Tube feeding formula: Impact Peptide 1.5, Method of Administration? Pump ubidecarenone 100 mg / vitam in e 5 unt oral capsule (15 sources) Coenzyme Q10 (Co Q 10) 100 MG CAPS Take by mouth every 24 hours. Active Vitamin B Complex (20 sources) Vitamin B Comple x Orally Daily Active vitamin b12 1 mg oral capsule (18 sources) Vitamin B12 Start: 06-28-2023 Cyanocobalamin 1000 MCG CAPS Cyanocobalamin (Vitamin B-12) Active 1000 MCG PO Daily June 28, 2023 12:00am 06/28/2023 Active Vitamin C 250 MG (2 sources) take 1 tablet by mouth twice daily Vitamin C 250 MG 1 tablet Orally twice a day Active Vitamin D3 2000 Unit (20 sources) Vitamin D3 2000 Unit Orally Daily Active vitamin e 180 mg oral capsul e (20 sources) vitamin E 400 UN IT capsule Take by mouth every 24 hours. Active take 1 capsule by mouth once elmer ly Vitamin E, dl, acetate, 1,000 unit capsule Take 1,000 Units by mouth once daily. 0 Suspended take 1 capsule by mo [facility] every twenty-four hours Vitamin E 400 UNIT 1 capsule Orally Once a day Active Vitamin E 200 UN IT Oral Capsule Take as directed Quantity: 0 Refills: 0 Ordered: 23-Aug-2022 DO Active Comment on above: Take 1,000 Units by mouth once daily. Vitamin E 400 UNIT (20 sources) take 1 capsule by mouth once elmer ly Vitamin E 400 UNIT 1 capsule Orally Once a day Active Walker misc (13 sources) Start: 11-11-2018 Walker misc fr ont wheeled walker dx left knee hematoma, Print Requisition, Compound 0 11/11/2018 Suspended Start: 11-11-2018 Walker misc fr ont wheeled walker dx left knee hematoma, Print Requisition, Compound 0 11/11/2018 Active Comment on above: front wheeled walker dx left knee hematoma, Print Requisition, Compound Completed/Discontinued Medications Medication Drug Class(es) Dates Sig (Normalized) Sig (Original) acetaminophen 325 mg / HYDROcodone bitartrate 5 mg oral tablet (12 sources) Opioid Agonist Start: 01-21-2019 End: 08-29-2019 take 1 tablet by mouth every four to six hours Hydrocodone-Acetami nophen (Holman) 5-325 mg tablet Discontinued 1 TAB PO EVERY 4-6 HOURS 40 7 January 21, 2019 August 29, 2019 1:54pm Acetaminophen Extra Strength TABS (6 sources) Acetaminophen Ex tra Strength TABS 650 MG NEEDED Quantity: 0 Refills: 0 Ordered: 22-Dec-2021 DO Active ALPRAZolam 0.25 mg oral tablet (18 sources) Benzodiazepine Start: 06-14-2023 End: 07-16-2023 take 0.25 mg by mouth twice daily Alprazolam Discontinued 0.25 MG PO Twice daily 10 5 June 25, 2023 11:08am July 03, 2023 9:54am Start: 04-23-2023 End: 08-04-2023 take 1 tablet by mouth every twelve hours ALPRAZolam (XANAX) 0.25 MG tablet Take 1 Tablet by mouth every 12 hours. 04/23/2023 08/04/2023 Discontinued Start: 04-23-2023 take 1 tablet by ramo th every twelve hours ALPRAZolam 0.25 MG 1 tablet Orally Twice a day for 5 days Apr, Active Comment on above: Take 1 tablet by ramo th every 12 hours. amoxicillin 500 mg oral capsule (3 sources) Penicillin-class Antibacterial Start: 01-13-20 take 4 capsules by mouth every hour Amoxicillin 500 MG Oral Capsule TAKE FOUR CAPSULES BY MOUTH ONE HOUR PRIOR TO APPOINTMENT Quantity: 16 Refills: 0 Ordered: 17-Mar-2022 DO Start : 12-Jan-2022 Active apixaban 5 mg oral tablet (20 sources) Factor Xa Inhibitor Start: 08-24-19 End: 07-29-19 24 take 1 tablet by mouth twice daily Apixaban (Eliquis) 5 mg tablet Discontinued 5 MG PO Twice daily April 30, 2023 1:00am May 14, 2023 2:15pm Start: 08-04-2022 take 2 tablets by mo [facility] twice daily Eliquis 2.5 mg oral tablet 5 mg = 2 tab(s), Oral, BID, # 60 tab(s), Refills(s) 5, Pharmacy: [facility] #[id number], 170.2, cm, 08/01/22 17:13:00 EDT, Height/Length Dosing, 83, kg, 08/01/22 17:13:00 EDT, Weight Dosing Start Date: 08/04/22 Status: Ordered Start: 06-29-2022 End: 07-29-2022 take 2 tablets by mouth twice daily, then take 2 tablets by mouth twice daily, then take 1 tablet by mouth twice daily, then take 2.5 mg by mouth twice daily apixaban 5 mg oral tablet 10 mg = 2 tab(s), Oral, BID, 10mg BID x5days, followed by 5mg BID x 6mths then decrease to 2.5mg BID indef., X 30 day(s), # 60 tab(s), Refills(s) 0, Pharmacy: [id number], 170, cm, 06/27/22 10:09:00 EDT, Height/Length Dosing, 90, kg, 04... Start Date: 06/29/22 Stop Date: 07/29/22 Status: Ordered aspirin 81 mg delayed release oral tablet (20 sources) Platelet Aggregation Inhibitor, Nonsteroidal Anti-inflammatory Drug Start: 05-14-2023 End: 09-03-2023 take 81 mg by mouth once daily Aspirin Discontinued 81 MG PO Daily May 14, 2023 1:00am September 03, 2023 3:55pm Start: 05-08-2023 take 1 tablet by [facility] once daily aspirin 81 mg chewable tablet 1 tablet by ORAL/FEEDING TUBE route once daily. 90 tablet 1 05/08/2023 Active Start: 11-23-2021 End: 08-04-2023 take 1 tablet by mouth once daily aspirin 81 mg Chew Tab 81 mg = 1 tab(s), Oral, Daily, # 30 tab(s), Refills(s) 0 Start Date: 06/08/23 Status: Ordered take 1 tablet by ramo th every twelve hours Aspirin 81 MG 1 tablet Orally bid Active take 1 tablet by ramo th once daily Aspirin EC 81 MG Oral Tablet Delayed Release TAKE 1 TABLET DAILY. Quantity: 90 Refills: 3 Ordered: 22-Dec-2021 Angélica Yates MD Active Baby Aspirin m-w -f Active Comment on above: 1 tablet by ORAL/FEE DING TUBE route once daily. atorvastatin 40 mg oral tablet (20 sources) HMG-CoA Reductase Inhibitor Start: 08-13-19 take 40 mg by mouth at bedtime 40 mg, Oral, AT BEDTIME, First dose on Sun08/13/23 at 2200, Until Discontinued Start: 08-01-2023 take 10 mg by mouth once daily 10 mg, Oral, DAILY, First dose (after last modification) on Sun08/01/23 at 0900, Until Discontinued Start: 11-25-2021 End: 08-04-2023 take 80 mg by mouth once daily 80 mg, Oral, DAILY, [facility]ir st dose on Sun07/30/23 at 1200, Until Discontinued Comment on above: Take 80 mg by mouth. baclofen 10 mg oral tablet (20 sources) gamma-Aminobutyric Acid-ergic Agonist Start: 07-09-2023 End: 09-03-2023 take 0.5 tablet by mouth once daily Baclofen Discontinued 0 .ROUTE .COMPLEX 14 July 09, 2023 5:13pm September 03, 2023 3:56pm TAKE 1/2 TABLET BY MOUTH DAILY Start: 08-01-2017 End: 08-04-2023 baclofen (LIORESAL) 10 mg ta blet Baclofen Baclofen Active 5 MG Oral Daily at bedtime August 01, 2017 3:16pm 08-01-2017 [facility] ([id number]) 0 08/01/2017 Active Start: 08-01-2017 End: 07-09-2023 take 5 mg by mouth once daily at bedtime Baclofen Discontinued 5 MG PO Daily at bedtime August 01, 2017 12:00am July 09, 2023 5:13pm Start: 07-13-2017 baclofen 5 mg, Oral, Bedtime, 1/2 of a 10 mg tab, Refills(s) 0 Start Date: 07/13/17 Status: Ordered take 0.5 tablet by m outh once daily Baclofen 10 mg 1/2 tablet Orally Daily for 90 days Active Comment on above: Baclofen Baclofen Ac tive 5 MG Oral Daily at bedtime August 01, 2017 3:16pm 08-01-2017 [facility] ([id number]) bisacodyl 5 mg delayed release oral tablet (2 sources) Stimulant Laxative Start: 08-13-2023 take 10 mg by mouth once daily as needed 10 mg, Oral, DAILY PRN, Starting on Sun08/13/23 at 0206, Until Discontinued, Constipation Start: 07-29-2023 calcium chloride 0.0014 meq/ml / potassium chloride 0.004 meq/ml / sodium chloride 0.103 meq/ml / sodium lactate 0.028 meq/ml injectable solution (1 source) Start: 08-18-2023 End: 08-20-2023 Intravenous, at 50 mL/hr, CONTINUOUS, Starting on Sun08/18/23 at 0200, Until Sun08/20/23 at 0840 ceFAZolin 2000 mg injection (1 source) Cephalosporin Antibacterial Start: 08-14-2023 End: 08-15-2023 2,000 mg, Intravenous, EVERY 8 HOURS ANTIBIOTIC, 3 doses, First dose on Sun08/14/23 at 1730, Last dose on Sun08/15/23 at 0600 clopidogrel 75 mg oral tablet (20 sources) P2Y12 Platelet Inhibitor Start: 12-29-2021 End: 01-08-2024 take 75 mg by mouth once daily Clopidogrel Discontinued 75 MG PO Daily April 30, 2023 1:00am May 14, 2023 2:22pm Comment on above: Take 75 mg by mouth. diphenhydrAMINE hydrochloride 25 mg oral tablet (1 source) Histamine-1 Receptor Antagonist Start: 12-15-2018 End: 12-15-2018 diphenhydrAMINE (BENADRYL) tablet 25 mg Start: 12-15-2018 End: 12-15-2018 diphenhydrAMINE (BENADRYL) t ablet 25 mg docusate sodium 100 mg oral capsule (20 sources) Start: 08-13-2023 End: 08-13-2023 take 100 mg by mouth twice daily 100 mg, Oral, 2 TIMES DAILY, First dose on Sun08/13/23 at 0241, Until Discontinued Start: 06-28-2023 take 100 mg by mouth once daily Docusate Sodium Active 100 MG PO Daily June 28, 2023 12:00am Start: 12-15-2018 End: 05-30-2023 take 100 mg by mouth once daily Docusate Sodium Discontinued 100 MG PO Daily May 14, 2023 1:00am May 30, 2023 3:29pm Comment on above: Take 100 mg by mouth once daily. as needed 0.3 ml enoxaparin sodium 100 mg/ml prefilled syringe (2 sources) Low Molecular Weight Heparin Start: 07-31-19 inject 30 mg by subcutaneous injection twice daily 30 mg, Subcutaneous, 2 TIMES DAILY, First dose on Sun07/31/23 at 2200, Until Discontinued Start: 12-15-2018 inject 40 mg by subc utaneous injection once daily 40 mg, Subcutaneous, DAILY, First dose on Sun12/15/18 at 0900 famotidine 40 mg oral tablet (20 sources) Histamine-2 Receptor Antagonist Start: 07-09-2023 End: 09-03-2023 take 1 tablet by mouth once daily at bedtime Famotidine Discontinued 0 .ROUTE .COMPLEX July 09, 2023 5:13pm September 03, 2023 3:56pm TAKE ONE TABLET BY MOUTH ONCE DAILY AT BEDTIME Start: 12-01-2021 End: 07-09-2023 take 1 tablet by mouth once daily at bedtime Famotidine Discontinued 1 TAB PO Daily at bedtime May 14, 2023 1:00am July 09, 2023 5:13pm FreeTextSi tablet at bedtime Orally Once a day; Note: Source Status: Taking; Refills: 1; Qty: 90 Tablet; Provider: Magaly Soto 2 ml fentaNYL 0.05 mg/ml injection (1 source) Opioid Agonist Start: 08-15-2023 End: 08-15-2023 Intravenous Push, PRN, Starting on Sun08/15/23 at 1514, Until Sun08/15/23 at 1514, Intra Procedure ferrous sulfate 325 mg oral tablet (20 sources) Start: 07-09-2023 End: 09-03-2023 take 1 tablet by mouth once daily Ferrous Sulfate Discontinued 0 .ROUTE .COMPLEX July 09, 2023 5:13pm September 03, 2023 3:56pm TAKE ONE TABLET BY MOUTH ONCE DAILY Start: 05-14-2023 End: 05-14-2023 take 1 tablet by mouth once daily Ferrous Sulfate Discontinued 1 TAB PO Daily May 14, 2023 1:00am May 14, 2023 2:23pm FreeTextSi tablet Orally Once a day; Note: Source Status: Taking; Refills: 1; Qty: 90 Tablet; Provider: Magaly Soto Start: 12-02-2021 End: 07-09-2023 take 325 mg by mouth once daily Ferrous Sulfate Discon tinued 325 MG PO Daily May 30, 2023 12:00am July 09, 2023 5:13pm take 1 tablet by ramo th once daily Ferrous Sulfate 325 (65 Fe) MG 1 tablet Orally Once a day for 90 days Active take 1 tablet by ramo th once daily Ferrous Sulfate 325 (65 Fe) MG 1 tablet Orally Once a day for 30 day(s) Active take 1 tablet by ramo th once daily Ferrous Sulfate 325 (65 Fe) MG 1 tablet Orally Once a day Active Comment on above: Take 325 mg by mouth . Fish Oil 1000 MG Oral Capsule Delayed Release (6 sources) Start: 12-23-19 take 1-2 tablets by mouth once daily Fish Oil 1000 MG Oral Capsule Delayed Release 1-2 tabletes daily Quantity: 90 Refills: 3 Ordered: 22-Dec-2021 Angélica Yates MD Start : 22-Dec-2021 Active Fish Oil OIL (3 sources) Fish Oil OIL USE DIRECTED. Quantity: 0 Refills: 0 Ordered: 22-Dec-2021 DO Active 1 ml haloperidol 5 mg/ml prefilled syringe (3 sources) Typical Antipsychotic Start: 08-16-19 End: 08-16-19 inject 1 dose by intramuscular injection once 5 mg, Intramuscular, ONCE, 1 dose, On Sun08/16/23 at 1100 Start: 08-16-2023 End: 08-16-2023 1 dose, Starting on Sun at 1033, Until Sun08/16/23 at 1100 Start: 07-31-2023 End: 07-31-2023 inject 1 dose by intramuscular injection once 5 mg, Intramuscular, ONCE, 1 dose, On Sun07/31/23 at 1830 1 ml hydrALAZINE hydrochloride 20 mg/ml injection (4 sources) Arteriolar Vasodilator Start: 08-15-2023 End: 08-15-2023 take 1 dose intravenously once 10 mg, Intravenous Push, ONCE, 1 dose, On Sun08/15/23 at 2030 Start: 07-30-2023 End: 07-30-2023 take 1 dose intravenously once 5 mg, Intravenous Push, ONCE, 1 dose, On Sun07/30/23 at 1930, PACU Now Start: 07-30-2023 End: 08-02-2023 take 10 mg intravenously every six hours as needed 10 mg, Intravenous Push, EVERY 6 HOURS PRN, Starting on Sun07/30/23 at 1847, Until Angely 08/02/23 at 0955, Other, for SBP > 180 Start: 07-29-2023 End: 07-29-2023 inject 10 mg intravenously once hydrALAZINE 20 mg/mL I nj 10 mg = 0.5 mL, Injection, IV Push, Once, Stop date 07/29/23 12:23:58 PM EDT, STAT, Start date 07/29/23 12:19:00 PM EDT, 07/29/23 12:19:00 EDT Start Date: 07/29/23 Stop Date: 07/29/23 Status: Completed hydroCHLOROthiazide 25 mg / triamterene 37.5 mg oral tablet (20 sources) Potassium-sparing Diuretic, Thiazide Diuretic Start: 05-08-2023 End: 07-16-2023 take 1 tablet by mouth once daily Triamterene-Hydrochlorothiazid Discontinued 1 TAB PO Daily June 13, 2023 5:14pm July 16, 2023 3:11pm Start: 05-07-2023 take 1 capsule by mouth once daily triamterene-hydroCHLOROthiazide (DYAZIDE ) 37.5-25 mg per capsule Take 1 capsule by mouth once daily. 0 05/07/2023 Active Start: 12-13-2021 take 0.5 tablet by mouth once daily hydrochlorothiazide-triamterene 25 mg-37 .5 mg Tab 0.5 tab(s), Oral, Daily, 30 tab(s), Refill(s) 1, [id number], 170, cm, 12/11/21 18:41:00 EDT, Height/Length Dosing, 87.7, kg, 12/11/21 18:41:00 EDT, Weight Dosing Start Date: 12/13/21 Status: Ordered Start: 12-15-2018 End: 12-18-2018 take 1 tablet by mouth once daily 1 tablet, Oral, DAILY, First dose on 12/15/18 at 1430 Start: 11-10-2018 End: 04-30-2023 take 1 capsule by mouth once daily in the morning Triamterene-Hydrochlorothiazid Discontin ued 1 CAP PO Every morning January 03, 2019 12:00am April 30, 2023 7:24pm take 1 capsule by mouth once daily in the morning Dyazide 37.5-25 MG 1 capsule in the morn ing Orally Once a day for 90 days Active take 1 capsule by mouth once daily in the morning Dyazide 37.5-25 MG 1 capsule in the morn ing Orally Once a day for 90 days Not-Taking Comment on above: Take 1 capsule by mo [facility] once daily. hydroCHLOROthiazide 12.5 mg / valsartan 160 mg oral tablet (12 sources) Thiazide Diuretic, Angiotensin 2 Receptor Rudi Start: 2017 End: 2018 take 1 tablet by mouth once daily Valsartan-Hydrochl orothiazide Discontinued 1 TAB PO Daily August 01, 2017 12:00am January 03, 2019 9:38am iohexol (OMNIPAQUE) 350 MG/ML injection (1 source) Start: 2023 End: 2023 150 mL, Other, Once at Radiology exam, 1 dose, Starting on Sun08/15/23 at 1602, Until Sun08/15/23 at 1602, Imaging Protocol Orders labetalol hydrochloride 5 mg/ml injectable solution (3 sources) beta-Adrenergic Rudi Start: 2023 End: 2023 take 1 dose intravenously once 10 mg, Intravenous Push, ONCE, 1 dose, On Sun08/15/23 at 1830 Start: 08-14-2023 End: 08-17-2023 take 10 mg intravenously every six hours as needed 10 mg, Intravenous Push, EVERY 6 HOURS PRN, Starting on Sun08/14/23 at 0817, Until Sun08/17/23 at 1056, for SBP > 160 Start: 08-13-2023 End: 08-13-2023 take 1 dose intravenously once 20 mg, Intravenous Push , ONCE, 1 dose, On Sun08/13/23 at 1900 labetalol 5 mg/mL IV Rizwana (1 source) Start: 05-03-2023 End: 05-03-2023 inject 10 mg intravenously once labetalol 5 mg/mL IV Rizwana 10 mg = 2 mL, Injection, IV Push, Once, Stop date 05/03/23 10:24:57 AM EST, STAT, Start date 05/03/23 10:11:00 AM EST, 05/03/23 10:11:00 EST Start Date: 05/03/23 Stop Date: 05/03/23 Status: Completed levETIRAcetam (KEPPRA) 750 mg in dextrose 5 % 100 mL ivpb (1 source) Start: 07-29-2023 End: 07-31-2023 750 mg, Intravenous, EVERY 12 HOURS, 14 doses, First dose on 07/29/23 at 1454, Last dose on 08/05/23 at 0254, at 400 mL/hr lidocaine hydrochloride 0.02 mg/mg topical gel (13 sources) Antiarrhythmic, Amide Local Anesthetic Start: 01-03-2019 End: 08-29-2019 Lidocaine Hcl Discontinued 1 APPLIC TOPICAL Daily January 03, 2019 12:00am August 29, 2019 1:54pm apply to wounds with dressings 1 ml LORazepam 2 mg/ml injection (20 sources) Benzodiazepine Start: 08-16-2023 End: 08-17-2023 take 1 dose intravenously once 1 mg, Intravenous Push, ONCE, 1 dose, On Angely 08/16/23 at 2100 Start: 07-30-2023 take 1 mg by mouth e very eight hours as needed 1 mg, Oral, EVERY 8 HOURS PRN, Starting on Sun07/30/23 at 2036, Until Discontinued, Anxiety Start: 07-16-2023 End: 07-19-2023 take 1 tablet by mouth three times daily as needed LORazepam (ATIVAN) 0.5 MG tablet Take 0.5 mg by mouth 3 times daily as needed. 07/19/2023 Active Start: 07-11-2023 End: 07-14-2023 take 1 tablet by mouth three times daily as needed for anxiety Ativan 0.5 mg Tab 0.5 mg = 1 tab(s), Oral, TID, PRN Anxiety, X 3 day(s), # 9 tab(s), Refills(s) 0, Pharmacy: [id number], 170, cm, 07/08/23 22:00:00 EDT, Height/Length Dosing, 83.6, kg, 07/08/23 22:00:00 EDT, Weight Dosing Start Date: 07/11/23 Stop Date: 07/14/23 Status: Ordered losartan potassium 50 mg oral tablet (20 sources) Angiotensin 2 Receptor Rudi Start: 07-16-2023 End: 07-17-2023 take 50 mg by mouth once daily in the morning Losartan Discontinued 50 MG PO Every morning July 16, 2023 3:11pm July 17, 2023 12:46pm Start: 07-11-2023 End: 09-03-2023 losartan (COZAAR) 50 MG tabl et Take 50 mg by mouth. 07/11/2023 Active Start: 12-02-2021 End: 12-02-2021 losartan 50 mg Tab 100 mg = 2 tab(s), Tab, Oral, Start date 12/02/21 9:00:00 EDT, 11/30/21 23:33:00 EDT Start Date: 12/02/21 Stop Date: 12/02/21 Status: Completed Start: 01-03-2019 End: 07-16-2023 take 100 mg by mouth once daily in the morning Losartan Discontinued 100 MG PO Every morning 90 90 May 14, 2023 2:39pm July 16, 2023 3:14pm Start: 12-15-2018 take 100 mg by mouth once aleksander y 100 mg, Oral, DAILY, First dose on 12/15/18 at 1430 Start: 10-01-2017 End: 12-18-2018 take 1 tablet by mouth every twenty-four hours Losartan Potassium 100 MG 1 tablet Orally Once a day for 90 days Sep, Active take 1 tablet by ramo th every twenty-four hours Losartan Potassium 25 MG 1 tablet Orally Once a day for 30 days Active Comment on above: Take 100 mg by mouth once daily. Magnesium (6 sources) take 1 tablet by mouth once daily Magnesium 400 MG Oral Tablet 1 TAB DAILY Quantity: 0 Refills: 0 Ordered: 22-Dec-2021 DO Active magnesium hydroxide 80 mg/ml oral suspension (1 source) Start: 08-01-2023 take 30 mL by mouth once daily as needed 30 mL, Oral, DAILY PRN, Starting on Sun08/01/23 at 1104, Until Discontinued, Constipation magnesium oxide 400 mg oral tablet (20 sources) Start: 05-14-2023 End: 09-03-2023 take 400 mg by mouth once daily Magnesium Oxide Discontinued 400 MG PO Daily May 14, 2023 1:00am September 03, 2023 3:54pm Start: 07-14-2017 End: 12-18-2018 take 400 mg by mouth once daily 400 mg, Oral, DAILY, F irst dose on Sun08/02/23 at 1030, Until Discontinued Magnesium Oxide 400 MG CAPS Take by mouth daily. Active take 1 tablet by ramo th every twenty-four hours MagOx 400 400 (241.3 Mg) MG 1 tablet with food Orally Once a day Active Comment on above: Take by mouth once d aily. 50 ml magnesium sulfate 40 mg/ml injection (8 sources) Start: 08-22-2023 End: 08-22-2023 2 g (2,000 mg), Intravenous, ONCE, 1 dose, On Sun08/22/23 at 1900 Start: 08-20-2023 End: 08-21-2023 2 g (2,000 mg), Intravenous, ONCE, 1 dose, On Sun08/20/23 at 1900 Start: 08-18-2023 End: 08-18-2023 4,000 mg, Intravenous, ONCE, 1 dose, On Sun08/18/23 at 1130 Start: 08-16-2023 End: 08-17-2023 2 g (2,000 mg), Intravenous, ONCE, 1 dose, On Sun08/17/23 at 0530 Start: 08-14-2023 End: 08-14-2023 2 g (2,000 mg), Intravenous, ONCE, 1 dose, On Sun08/14/23 at 1700, at 50 mL/hr Start: 07-31-2023 End: 07-31-2023 2 g (2,000 mg), Intravenous, ONCE, 1 dose, On Sun07/31/23 at 0730 methylPREDNISolone 4 mg oral tablet (5 sources) Corticosteroid Start: 03-21-2022 Medrol (Etienne) 4 MG as directed Orally daily for 6 days Mar, Not-Taking metoprolol (LOPRESSOR) split tablet (1 source) Start: 07-30-2023 take 12.5 mg by mouth twice daily 12.5 mg, Oral, 2 TIMES DAILY, First dose on Sun07/30/23 at 1630, Until Discontinued midazolam 1 mg/ml injectable solution (1 source) Benzodiazepine Start: 08-15-2023 End: 08-15-2023 Intravenous Push, PRN, Starting on Sun08/15/23 at 1514, Until Sun08/15/23 at 1527, Intra Procedure 1 ml morphine sulfate 2 mg/ml cartridge (2 sources) Opioid Agonist Start: 07-29-2023 End: 07-29-2023 take 1 dose intravenously once 2 mg, Intravenous Push, ONCE, 1 dose, On Sun07/29/23 at 1422 Start: 12-15-2018 morphine injec tion 2 mg Multi Vitamin TABS (6 sources) Multi Vitamin TA BS TAKE 1 TABLET DAILY. Quantity: 0 Refills: 0 Ordered: 22-Dec-2021 DO Active [place] 1-Qfn-Loe-Fish Oil (Fish Oil) 100-160-1,000 mg capsule (10 sources) Start: 05-30-2023 End: 09-03-2023 take 100-160 capsules by mouth once daily [place] 1-Nwm-Wje-Fish Oil (Fish Oil) 100-160-1,000 mg capsule Discontinued CAP PO Daily May 30, 2023 3:30pm September 03, 2023 3:57pm Start: 05-30-2023 take 100-160 capsule s by mouth once daily [place] 2-Dvr-Qit-Fish Oil (Fish Oil) 100-160-1,000 mg capsule Active CAP PO Daily May 30, 2023 3:30pm Start: 05-14-2023 End: 05-30-2023 [place] 2-Rll-Dyt-Fish Oil (Fi sh Oil) 100-160-1,000 mg capsule Discontinued CAP PO May 14, 2023 1:00am May 30, 2023 3:30pm piperacillin-tazobactam (ZOS YN) 3.375 g in dextrose 5 % 50 mL IVPB extended infusion (mini-bag) (1 source) Start: 12-15-2018 End: 12-18-2018 3.375 g, Intravenous, EVERY 8 HOURS, First dose on 12/15/18 at 0100, Until Discontinued potassium chloride 1.33 meq/ ml oral solution (15 sources) Start: 08-17-2023 End: 08-17-2023 take 1 dose by mouth once 20 mEq, Oral, ONCE, 1 dose, On Sun08/17/23 at 1130 Start: 08-17-2023 End: 08-17-2023 20 mEq, Intravenous, ONCE, 1 dose, On Sun08/17/23 at 1130, at 50 mL/hr Start: 07-31-2023 End: 07-31-2023 take 1 dose by mouth once 40 mEq, Oral, ONCE, 1 dose, On Sun07/31/23 at 0730 Start: 08-04-2022 take 2 tablets by mouth once p otassium chloride 20 mEq ER Tab 40 mEq = 2 tab(s), Oral, Once, Refills(s) 0 Start Date: 08/04/22 Status: Ordered potassium phosphate 15 mmol injection in D5W (4 sources) Start: 08-20-2023 End: 08-20-2023 15 mmol, Intravenous, ONCE, 1 dose, On Sun08/20/23 at 0130 Start: 08-17-2023 End: 08-17-2023 15 mmol, Intravenous, ONCE, 1 dose, On Sun08/17/23 at 0530 Start: 08-14-2023 End: 08-14-2023 15 mmol, Intravenous, ONCE, 1 dose, On Sun08/14/23 at 1700 Start: 07-31-2023 End: 07-31-2023 15 mmol, Intravenous, ONCE, 1 dose, On Sun07/31/23 at 0730 rivaroxaban 15 mg oral tablet (12 sources) Factor Xa Inhibitor Start: 08-01-2017 End: 01-03-2019 take 1 tablet by mouth twice daily Rivaroxaban (Xarelto) 15 mg tablet Discontinued 15 MG PO Twice daily August 01, 2017 12:00am January 03, 2019 9:38am sertraline 25 mg oral tablet (8 sources) Serotonin Reuptake Inhibitor Start: 06-22-2023 End: 08-04-2023 take 25 mg by mouth once daily Sertraline Discontinued 25 MG PO Daily June 22, 2023 10:22am June 25, 2023 11:09am 1000 ml sodium chloride 9 mg/ml injection (8 sources) Start: 08-13-2023 End: 08-17-2023 Intravenous, at 75 mL/hr, CONTINUOUS, Starting on Sun08/16/23 at 0930, Until Sun08/17/23 at 1056 Start: 08-12-2023 End: 08-12-2023 PRN CONTINUOUS, Starting on 08/12/23 at 1916, Until 08/12/23 at 1916 Start: 12-16-2018 sodium chlorid e (OCEAN) 0.65 % nasal spray 1 spray Start: 12-14-2018 take 1 mL intravenou s route every hour Intravenous, at 100 mL/hr, CONTINUOUS, Starting 12/14/18 at 2330 Maintenance IV fluid order, if a bolus IV fluid order is present, begin this order after the bolus is complete. Start: 12-14-2018 10 mL, Intrave nous, EVERY 12 HOURS SCHEDULED (2 times per day), First dose on 12/14/18 at 2330 Start: 12-14-2018 take 10 mL intraveno us route once as needed 10 mL, Intravenous, PRN, Line Care, After every IV line use, Starting 12/14/18 at 2314 sodium phosphate 15 mmol injection in D5W (1 source) Start: 08-18-2023 End: 08-18-2023 15 mmol, Intravenous, ONCE, 1 dose, On 08/18/23 at 1130 stavudine 15 mg oral capsule (1 source) Human Immunodeficiency Virus Nucleoside Analog Reverse Transcriptase Inhibitor End: 12-15-2018 take 1 capsule by mouth every twelve hours stavudine (ZERIT) 15 MG capsule Take 15 mg by mouth every 12 hours 0 12/15/2018 Discontinued (ERROR) tamsulosin hydrochloride 0.4 mg oral capsule (1 source) alpha-Adrenergic Rudi Start: 08-13-2023 End: 08-15-2023 take 0.4 mg by mouth once daily 0.4 mg, Oral, DAILY, First dose on Sun08/13/23 at 1300, Until Discontinued thiamine hydrochloride 100 mg/ml injectable solution (1 source) Start: 08-16-2023 End: 08-20-2023 100 mg, Intravenous Push, DAILY, 5 doses, First dose on Angely 6/6/24 at 1430, Last dose on Sun08/20/23 at 0900 traMADol hydrochloride 50 mg oral tablet (12 sources) Opioid Agonist End: 08-24-2023 tramadol (ULTRAM) 50 MG tablet 08/24/2023 Discontinued triamcinolone acetonide 40 mg/ml injectable suspension (20 sources) Corticosteroid Start: 02-13-2022 Kenalog-40 Feb, 60 mg ubidecarenone 10 mg oral capsule (8 sources) Start: 05-30-2023 End: 09-03-2023 Coenzyme Q10 Discontinued 10 MG PO Daily May 30, 2023 12:00am September 03, 2023 3:53pm Start: 08-23-2022 take 1 capsule by mo [facility] once daily Co-Enzyme Q10 100 MG Oral Capsule TAKE 1 CAPSULE Daily Quantity: 90 Refills: 3 Ordered: 23-Aug-2022 Angélica Yates MD Start : 23-Aug-2022 Active valsartan 160 mg oral tablet (12 sources) Angiotensin 2 Receptor Rudi End: 08-24-2023 take 1 tablet by mouth once daily valsartan (DIOVAN) 160 MG tablet Take 1 tablet every day by oral route. 08/24/2023 Discontinued vancomycin (VANCOCIN) 1250 mg in dextrose 5 % 250 mL IVPB (1 source) Start: 12-15-2018 End: 12-18-2018 vancomycin (VANCOCIN) 1250 mg in dextrose 5 % 250 mL IVPB vancomycin (VANCOCIN) intermittent dosing (placeholder) (1 source) Start: 12-15-2018 End: 12-18-2018 vancomycin (VANCOCIN) intermittent dosing (placeholder) Vitamin B Complex (B Complex-Vitamin B12) tablet (5 sources) Start: 05-14-2023 End: 09-03-2023 take 1 tablet by mouth once daily Vitamin B Complex (B Complex-Vitamin B12) tablet Discontinued 1 TAB PO Daily May 14, 2023 1:00am September 03, 2023 3:57pm Start: 05-14-2023 take 1 tablet by [facility] once daily Vitamin B Complex (B Complex-Vitamin B12) tablet Active 1 TAB PO Daily May 14, 2023 1:00am vitamin K2 (8 sources) Vitamin K2 Not-T aking Vitamin K2 Activ e zafirlukast 20 mg oral tablet (20 sources) Leukotriene Receptor Antagonist Start: 08-01-2017 End: 08-24-2023 take 20 mg by mouth twice daily Zafirlukast Discontinued 20 MG PO Twice daily August 01, 2017 12:00am June 28, 2021 4:36pm take 1 tablet by ramo th every twenty-four hours Zafirlukast 20 MG 1 tablet Orally daily for 90 days Active Problems Active Problems Problem Classification Problem Date Documented Date Episodic/Chronic Acute and unspecified renal failure (2 sources) Acute injury of kidney; Translations: [LALY (acute kidney injury)] Onset: 9 12-16-2018 Acute cerebrovascular disease (20 sources) Hemorrhage into subarachnoid space of neuraxis; Translations: [Nontraumatic subarachnoid hemorrhage, unspecified] Onset: 4 05-03-2023 Chronic Acute myocardial infarction (20 sources) Non-ST elevation (NSTEMI) myocardial infarction; Translations: [Myocardial infarction] Onset: 2 Chronic Acute posthemorrhagic anemia (5 sources) Acute posthemorrhagic anemia; Translations: [Acute posthemorrhagic anemia] Onset: 4 08-24-2023 Episodic Adjustment disorders (7 sources) Adjustment disorder with depressed mood; Translations: [Adjustment disorder with depressed mood] Onset: 4 Chronic Allergic reactions (1 source) Allergic disposition; Translations: [Allergy, unspecified, initial encounter] Onset: 2 Episodic Anxiety disorders (17 sources) Anxiety disorder; Translations: [Anxiety disorder, unspecified] Onset: 4 Chronic Asthma (20 sources) Unspecified asthma, uncomplicated; Translations: [Asthma] Onset: 8 11-10-2018 Chronic Blindness and vision defects (8 sources) Other visual disturbances; Translations: [Other specified visual disturbances] Onset: 4 05-14-2023 Episodic Cardiac dysrhythmias (2 sources) Sinus bradycardia; Translations: [Bradycardia, unspecified] Onset: 2 Episodic Cataract (3 sources) 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; Translations: [Other secondary cataract, right eye] 05-25-2023 Chronic Complications of surgical procedures or medical care (13 sources) Non-healing surgical wound; Translations: [Other complications of procedures, not elsewhere classified, initial encounter] 09-11-2019 Episodic Congestive heart failure; nonhypertensive (20 sources) Diastolic dysfunction; Translations: [Chronic diastolic heart failure] Onset: 4 12-15-2021 Chronic Coronary atherosclerosis and other heart disease (20 sources) Coronary atherosclerosis; Translations: [Atherosclerotic heart disease of [place] coronary artery without angina pectoris] Onset: 2 Chronic Coronary atherosclerosis and other heart disease (7 sources) Patient post percutaneous transluminal coronary angioplasty; Translations: [Percutaneous transluminal coronary angioplasty status] Episodic Comment on above: RCA November 2021; Deficiency and other anemia (2 sources) Normocytic normochromic anemia; Translations: [Anemia, normocytic normochromic] Onset: 9 12-16-2018 Episodic Deficiency and other anemia (2 sources) Normocytic anemia; Translations: [Normocytic anemia] Onset: 9 12-15-2018 Episodic Deficiency and other anemia (2 sources) Anemia; Translations: [Anemia, unspecified] Onset: 2 Episodic Deficiency and other anemia (9 sources) Iron deficiency anemia; Translations: [Iron deficiency anemia, unspecified] Onset: 4 05-03-2023 Episodic Disorders of lipid metabolism (20 sources) Hyperlipidemia; Translations: [Other and unspecified hyperlipidemia] Onset: 3 Chronic E Codes: Fall (17 sources) Fall; Translations: [Unspecified fall, initial encounter] Onset: 4 07-29-2023 Episodic Epilepsy; convulsions (3 sources) Epilepsy, unspecified, not intractable, without status epilepticus; Translations: [Epilepsy] Onset: 8 Chronic Epilepsy; convulsions (20 sources) Seizure disorder; Translations: [Seizure] Onset: 2 05-16-2019 Episodic Esophageal disorders (20 sources) Gastroesophageal reflux disease without esophagitis; Translations: [Gastro-esophageal reflux disease without esophagitis] Onset: 2 Chronic Essential hypertension (20 sources) Essential (primary) hypertension; Translations: [Essential hypertension] Onset: 8 Resolved: 2 12-15-2018 Chronic External Injury - Fall (20 sources) Fall on same level from slipping, tripping and stumbling without subsequent striking against object, initial encounter; Translations: [Fall] Onset: 8 12-15-2018 Fluid and electrolyte disorders (11 sources) Lactic acidosis; Translations: [Hypo-osmolality and or hyponatremia] Onset: 2 11-10-2018 Episodic Genitourinary symptoms and ill-defined conditions (7 sources) Retention of urine; Translations: [Retention of urine, unspecified] Onset: 4 08-24-2023 Episodic Headache; including migraine (1 source) Headache; Translations: [Headache, unspecified] Onset: 4 Episodic Hypertension with complications and secondary hypertension (2 sources) Hypertensive emergency; Translations: [Hypertensive emergency] Onset: 4 Chronic Inflammation; infection of eye (except that caused by tuberculosis or sexually transmitteddisease) (1 source) 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; Translations: [Exposure keratoconjunctivitis, left eye] 05-25-2023 Chronic Intracranial injury (1 source) Intracranial injury with loss of consciousness; Translations: [Traumatic subdural hemorrhage with loss of consciousness status unknown, initial encounter] Onset: 4 Episodic Malaise and fatigue (20 sources) Fatigue; Translations: [Chronic fatigue, unspecified] Chronic Malaise and fatigue (3 sources) Asthenia; Translations: [Weakness] Onset: 3 Episodic Nutritional deficiencies (20 sources) Vitamin D deficiency; Translations: [Vitamin D deficiency, unspecified] Chronic Occlusion or stenosis of precerebral arteries (20 sources) Carotid artery stenosis; Translations: [Occlusion and stenosis of unspecified carotid artery] Onset: 2 Resolved: 2 Chronic Open wounds of extremities (2 sources) Unspecified open wound, left knee, initial encounter; Translations: [Open wound of left knee] Onset: 9 12-15-2018 Episodic Osteoarthritis (20 sources) Osteoarthritis; Translations: [Unspecified osteoarthritis, unspecified site] Onset: 5 05-16-2019 Chronic Other aftercare (1 source) accreditation specialist (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; Translations: [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 OF ANTICOAGULANTS] Onset: 8 Episodic Other aftercare (3 sources) Drug therapy finding; Translations: [Long-term (current) use of other medications] Episodic Other aftercare (6 sources) Polypharmacy ; Translations: [Other mail inserter (current) drug therapy] Onset: 4 08-24-2023 Episodic Other and ill-defined cerebrovascular disease (1 source) Cerebral amyloid angiopathy; Translations: [Cerebral amyloid angiopathy (CODE)] Onset: 4 Chronic Other and ill-defined heart disease (1 source) Heart disease; Translations: [Other ill-defined heart diseases] Onset: 2 Chronic Other circulatory disease (1 source) Disorder of respiratory system; Translations: [Other specified symptoms and signs involving the circulatory and respiratory systems] Onset: 2 Episodic Other circulatory disease (1 source) History of cerebrovascular disease; Translations: [Personal history of other diseases of the circulatory system] Onset: 2 Episodic Other congenital anomalies (1 source) 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; Translations: [Congenital malformation of retina] Chronic Other connective tissue disease (2 sources) Presence of left artificial shoulder joint; Translations: [PRESENCE OF LEFT ARTIFICIAL SHOULDER JOINT] Onset: 8 Chronic Other connective tissue disease (20 sources) History of total knee arthroplasty; Translations: [Presence of artificial knee joint, bilateral] Chronic Other connective tissue disease (17 sources) History of hemiarthroplasty of right shoulder; Translations: [Presence of right artificial shoulder joint] Chronic Other connective tissue disease (12 sources) Pain in left lower limb; Translations: [Pain in left leg] 06-28-2021 Episodic Other connective tissue disease (1 source) Other specified soft tissue disorders Episodic Other connective tissue disease (5 sources) Other muscle spasm; Translations: [OTHER MUSCLE SPASM] Onset: 2 Episodic Other connective tissue disease (1 source) Pain in right leg; Translations: [PAIN IN RIGHT LEG] Onset: 3 Episodic Other connective tissue disease (1 source) Pain in left leg; Translations: [PAIN IN LEFT LEG] Onset: 3 Episodic Other connective tissue disease (10 sources) Bilateral calf pain; Translations: [Pain in right lower leg] Onset: 4 04-30-2023 Episodic Other connective tissue disease (1 source) Neurological symptom; Translations: [Unspecified symptoms and signs involving the nervous system] Onset: 4 Episodic Other diseases of kidney and ureters (7 sources) Acute renal insufficiency; Translations: [Disorder of kidney and ureter, unspecified] Onset: 4 11-10-2018 Episodic Other diseases of veins and lymphatics (5 sources) Chronic venous hypertension (idiopathic) without complications of unspecified lower extremity; Translations: [Chronic venous hypertension without complications] 05-30-2023 Chronic Other diseases of veins and lymphatics (5 sources) Lymphedema, not elsewhere classified; Translations: [Other lymphedema] 05-30-2023 Chronic Other diseases of veins and lymphatics (12 sources) Venous hypertension; Translations: [Chronic venous hypertension (idiopathic) without complications of unspecified lower extremity] 01-06-2019 Chronic Other diseases of veins and lymphatics (12 sources) Lymphedema of bilateral lower limbs; Translations: [Lymphedema, not elsewhere classified] 01-03-2019 Chronic Other diseases of veins and lymphatics (9 sources) Lymphedema; Translations: [Lymphedema, not elsewhere classified] Onset: 3 Chronic Other diseases of veins and lymphatics (1 source) Venous hypertension; Translations: [Chronic venous hypertension] Episodic Other diseases of veins and lymphatics (20 sources) Peripheral venous insufficiency; Translations: [Venous insufficiency (chronic) (peripheral)] Episodic Other diseases of veins and lymphatics (1 source) Lymphedema of bilateral lower limbs; Translations: [Lymphedema of lower extremity] Other eye disorders (15 sources) Chorioretinal scar of left eye; Translations: [Unspecified chorioretinal scars, left eye] Onset: 0 Chronic Other fractures (1 source) Unspecified fracture of T9-T10 vertebra, initial encounter for closed fracture; Translations: [UNSP FRACTURE OF T9-T10 VERTEBRA, INIT FOR CLOS FX] Onset: 8 Episodic Other infections; including parasitic (2 sources) Local infection of wound; Translations: [Wound infection] Onset: 9 12-18-2018 Episodic Other injuries and conditions due to external causes (4 sources) Injury of radial nerve at forearm level, left arm, initial encounter; Translations: [Unspecified injury of left shoulder and upper arm, initial encounter] Onset: 8 Episodic Other injuries and conditions due to external causes (2 sources) Wound ; Translations: [Full-term infant] Episodic Other injuries and conditions due to external causes (1 source) Other injury of unspecified body region, initial encounter Episodic Other injuries and conditions due to external causes (1 source) Personal history of other (healed) physical injury and trauma; Translations: [Personal history of other injury] 09-03-2023 Episodic Other liver diseases (6 sources) Disease of liver; Translations: [Other specified diseases of liver] Onset: 2 Chronic Other liver diseases (20 sources) Liver cyst 12-15-2021 Chronic Other lower respiratory disease (20 sources) Lung field abnormal; Translations: [Other nonspecific abnormal finding of lung field] Episodic Other lower respiratory disease (3 sources) Multiple nodules of lung 04-29-2018 Episodi c Other lower respiratory disease (4 sources) Cough; Translations: [Cough, unspecified] Onset: 4 08-23-2023 Episodic Other nervous system disorders (20 sources) Acute radial nerve palsy; Translations: [Lesion of radial nerve, left upper limb] Onset: 4 08-23-2023 Chronic Other nervous system disorders (13 sources) Difficulty in walking, not elsewhere classified; Translations: [Difficulty in walking] Onset: 2 01-01-2012 Chronic Other nervous system disorders (18 sources) Difficulty walking; Translations: [Difficulty in walking, not elsewhere classified] Onset: 2 10-15-2014 Chronic Other nervous system disorders (20 sources) Chronic pain due to injury; Translations: [Chronic pain due to trauma] Onset: 4 08-23-2023 Chronic Other nervous system disorders (3 sources) Chronic pain due to trauma Chronic Other nervous system disorders (6 sources) Disorder of brain; Translations: [Encephalopathy, unspecified] Onset: 4 08-24-2023 Chronic Other nervous system disorders (6 sources) Paresthesia of lower extremity; Translations: [Anesthesia of skin] 04-30-2023 Episodic Other nervous system disorders (1 source) Tremor; Translations: [Tremor, unspecified] Onset: 4 Episodic Other nervous system disorders (18 sources) Acute pain due to injury; Translations: [Acute pain due to trauma] Onset: 4 08-03-2023 Episodic Other nervous system disorders (5 sources) Acute postoperative pain; Translations: [Other acute postprocedural pain] Onset: 4 08-24-2023 Episodic Other non-traumatic joint disorders (20 sources) Rotator cuff tear arthropathy; Translations: [Other specific arthropathies, not elsewhere classified, right shoulder] Chronic Other non-traumatic joint disorders (20 sources) Disorder of joint of ankle and/or foot; Translations: [Other specific joint derangements of unspecified ankle, not elsewhere classified] Onset: 2 01-01-2012 Chronic Other non-traumatic joint disorders (18 sources) Loose body in joint of ankle and/or foot; Translations: [Loose body in unspecified ankle] Onset: 2 01-01-2012 Chronic Other non-traumatic joint disorders (1 source) Pain in right knee; Translations: [PAIN IN RIGHT KNEE] Onset: 3 Episodic Other non-traumatic joint disorders (1 source) Pain in left knee; Translations: [PAIN IN LEFT KNEE] Onset: 3 Episodic Other non-traumatic joint disorders (6 sources) Pain in left shoulder; Translations: [PAIN IN LEFT SHOULDER] Onset: 2 Episodic Other nutritional; endocrine; and metabolic disorders (2 sources) Hypocalcemia; Translations: [Hypocalcemia] Onset: 9 12-16-2018 Chronic Other nutritional; endocrine; and metabolic disorders (2 sources) Hypoalbuminemia; Translations: [Hypoalbuminemia] Onset: 9 12-16-2018 Chronic Other nutritional; endocrine; and metabolic disorders (18 sources) Obesity; Translations: [Obesity, unspecified] Onset: 2 08-29-2019 Chronic Other nutritional; endocrine; and metabolic disorders (20 sources) Morbid obesity; Translations: [Morbid (severe) obesity due to excess calories] Onset: 2 Chronic Other nutritional; endocrine; and metabolic disorders (20 sources) Cerebral amyloid angiopathy; Translations: [Organ-limited amyloidosis] Onset: 4 05-05-2023 Chronic Other nutritional; endocrine; and metabolic disorders (1 source) Morbid (severe) obesity due to excess calories; Translations: [Morbid obesity (HCC)] Onset: 4 Chronic Other nutritional; endocrine; and metabolic disorders (6 sources) Overweight in adulthood with body mass index of 25 or more but less than 30; Translations: [Overweight] Episodic Other screening for suspected conditions (not mental disorders or infectious disease) (20 sources) Encounter for screening mammogram for malignant neoplasm of breast; Translations: [Blood chemistry abnormal] Onset: 1 Resolved: 1 Episodic Other skin disorders (1 source) Eruption; Translations: [Rash and other nonspecific skin eruption] Episodic Other upper respiratory disease (20 sources) Seasonal allergic rhinitis 05-16-2019 Chronic Other upper respiratory disease (20 sources) Allergic disposition; Translations: [Other allergic rhinitis] Chronic Other upper respiratory disease (1 source) Other allergic rhinitis Chronic Other upper respiratory infections (6 sources) Acute upper respiratory infection; Translations: [Acute upper respiratory infection, unspecified] Onset: 4 Episodic Peripheral and visceral atherosclerosis (20 sources) Intermittent claudication; Translations: [Peripheral vascular disease, unspecified] Chronic Pulmonary heart disease (1 source) Pulmonary hypertension; Translations: [Pulmonary hypertension, unspecified] Onset: 2 Chronic Rehabilitation care; fitting of prostheses; and adjustment of devices (18 sources) Patient encounter status; Translations: [Encounter for fitting and adjustment of other specified devices] Onset: 2 09-20-2011 Chronic Residual codes; unclassified (17 sources) Edema of lower extremity; Translations: [Localized edema] Onset: 4 06-28-2021 Episodic Residual codes; unclassified (3 sources) Localized edema; Translations: [Edema of left lower extremity] Onset: 1 Resolved: 1 Episodic Residual codes; unclassified (20 sources) Postprocedural state finding; Translations: [Other specified postprocedural states] Episodic Residual codes; unclassified (3 sources) Procedure contraindicated 11-10-2018 Episod ic Residual codes; unclassified (1 source) Procedure carried out on subject; Translations: [Encounter for prophylactic measures, unspecified] Onset: 2 Episodic Residual codes; unclassified (1 source) H/O: Disorder; Translations: [Personal history of other specified conditions] Onset: 2 Episodic Residual codes; unclassified (1 source) Past history of procedure; Translations: [Other specified postprocedural states] Onset: 2 Episodic Residual codes; unclassified (1 source) Localized edema; Translations: [Localized edema] Onset: 3 Episodic Residual codes; unclassified (17 sources) Altered mental status; Translations: [Altered mental status, unspecified] Onset: 3 Episodic Residual codes; unclassified (3 sources) Edema; Translations: [Edema] Episodic Residual codes; unclassified (1 source) Other specified postprocedural states Episodic Residual codes; unclassified (1 source) Pain, unspecified; Translations: [Pain, unspecified] Onset: 4 Episodic Residual codes; unclassified (1 source) Other general symptoms and signs; Translations: [Other general symptoms and signs] Onset: 4 Episodic Residual codes; unclassified (6 sources) Chill; Translations: [Chills (without fever)] Onset: 4 Episodic Residual codes; unclassified (1 source) Urinary catheter in situ; Translations: [Presence of other specified devices] 08-30-2023 Episodic Residual codes; unclassified (2 sources) At risk for imbalanced nutrition, less than body requirements; Translations: [At risk for malnutrition] Onset: 9 12-15-2018 Retinal detachments; defects; vascular occlusion; and retinopathy (20 sources) Hemorrhage of left retina; Translations: [Retinal hemorrhage, left eye] Onset: 0 Chronic Screening and history of mental health and substance abuse codes (7 sources) Personal history of nicotine dependence; Translations: [Ex-smoker] Onset: 1 Resolved: 1 Episodic Comment on above: QUIT AT 36 YRS OLD 1 /2 PPD; Skin and subcutaneous tissue infections (2 sources) Cellulitis of left lower limb; Translations: [Left leg cellulitis] Onset: 9 12-18-2018 Spondylosis; intervertebral disc disorders; other back problems (1 source) Other intervertebral disc degeneration, lumbar region; Translations: [OTH IV DISC DEGEN LUMBAR REGION] Onset: 3 Chronic Spondylosis; intervertebral disc disorders; other back problems (19 sources) Intervertebral disc disorders with radiculopathy, lumbar region; Translations: [Radiculopathy, lumbosacral region] Onset: 2 Episodic Superficial injury; contusion (20 sources) Contusion of knee; Translations: [Contusion of right foot] Onset: 9 12-15-2018 Episodic Syncope (2 sources) Syncope and collapse; Translations: [Syncope and collapse] Onset: 2 Episodic Unclassified (2 sources) Unknown / UNK(Unknown) Onset: 8 Unclassified (20 sources) Mild pulmonary hypertension 12-15-2021 Unclassified (1 source) LOW BACK PAIN, UNSPECIFIED; Translations: [LOW BACK PAIN, UNSPECIFIED] Onset: 3 Unclassified (1 source) Encounter for screening mammogram for malignant neoplasm of breast; Translations: [Encounter for screening mammogram for malignant neoplasm of breast] Onset: 3 Unclassified (1 source) Occlusion and stenosis of bilateral carotid arteries; Translations: [Occlusion and stenosis of bilateral carotid arteries] Onset: 3 Unclassified (1 source) Pain in left shoulder; Translations: [Pain in left shoulder] Onset: 3 Past or Other Problems Problem Classification Problem Date Documented Da te Episodic/Chronic Acute and unspecified renal failure (12 sources) Acute renal failure syndrome; Translations: [Acute kidney failure, unspecified] Onset: 12-16-2018 Episodic Conditions associated with dizziness or vertigo (1 source) Dizziness and giddiness Onset: 03-29-2021 Resolved: 03-29-2021 Episodic Deficiency and other anemia (20 sources) Chronic anemia; Translations: [Anemia, unspecified] Onset: 12-15-2018 12-15-2021 Episodic Fracture of upper limb (20 sources) Displaced comminuted fracture of shaft of humerus, left arm, initial encounter for closed fracture; Translations: [Displaced comminuted fracture of shaft of humerus, left arm, subsequent encounter for fracture with routine healing] Onset: 08-07-2017 08-23-2023 Episodic Nonspecific chest pain (7 sources) Chest pain; Translations: [Chest pain, unspecified] Onset: 12-11-2021 Episodic Other aftercare (13 sources) Surgical follow-up; Translations: [Encounter for follow-up examination after completed treatment for conditions other than malignant neoplasm] Onset: 01-01-2012 01-01-2012 Episodic Other connective tissue disease (1 source) Achilles tendinitis, left leg Onset: 07-11-2021 Resolved: 07-11-2021 Episodic Other connective tissue disease (18 sources) Full thickness rotator cuff tear; Translations: [Complete rotator cuff tear or rupture of unspecified shoulder, not specified as traumatic] Onset: 05-01-2003 07-06-2003 Episodic Other connective tissue disease (13 sources) Bilateral rotator cuff arthropathy of shoulder; Translations: [Unspecified rotator cuff tear or rupture of right shoulder, not specified as traumatic] Onset: 05-25-2014 05-25-2014 Episodic Other connective tissue disease (13 sources) Plantar fasciitis; Translations: [Plantar fascial fibromatosis] Onset: 10-15-2014 10-15-2014 Episodic Other connective tissue disease (13 sources) Pain in left foot; Translations: [Pain in left foot] Onset: 10-15-2014 10-15-2014 Episodic Other connective tissue disease (13 sources) Heel pain; Translations: [Pain in unspecified foot] Onset: 10-15-2014 10-15-2014 Episodic Other connective tissue disease (13 sources) Calcaneal spur; Translations: [Calcaneal spur, unspecified foot] Onset: 10-15-2014 10-15-2014 Episodic Other connective tissue disease (13 sources) Tendinitis of right hand; Translations: [Other enthesopathies, not elsewhere classified] Onset: 07-19-2017 07-19-2017 Episodic Other connective tissue disease (13 sources) Enthesopathy of foot region; Translations: [Other enthesopathies, not elsewhere classified] Onset: 05-19-2022 05-19-2022 Episodic Other connective tissue disease (13 sources) Left achilles tendonitis; Translations: [Achilles tendinitis, left leg] Onset: 05-19-2022 05-19-2022 Episodic Other connective tissue disease (18 sources) Calcaneal spur of left foot; Translations: [Calcaneal spur, left foot] Onset: 05-19-2022 05-19-2022 Episodic Other diseases of veins and lymphatics (1 source) Venous insufficiency (chronic) (peripheral); Translations: [Chronic venous insufficiency I87.2] Onset: 12-13-2020 Resolved: 12-13-2020 Episodic Other ear and sense organ disorders (1 source) Impacted cerumen, right ear Onset: 06-22-2021 Resolved: 06-22-2021 Episodic Other injuries and conditions due to external causes (1 source) Personal history of (healed) traumatic fracture; Translations: [PERSONAL HX HEALED TRAUMATIC FX] Onset: 11-03-2021 Episodic Other non-traumatic joint disorders (5 sources) Ankle instability; Translations: [Other instability, unspecified ankle] Onset: 01-01-2012 08-23-2023 Episodic Other nutritional; endocrine; and metabolic disorders (16 sources) Hypophosphatasia; Translations: [Other disorders of phosphorus metabolism] Onset: 08-03-2023 Resolved: 08-03-2023 08-03-2023 Chronic Other skin disorders (18 sources) Abnormality of nail of toe; Translations: [Other nail disorders] Onset: 05-19-2022 05-19-2022 Episodic Phlebitis; thrombophlebitis and thromboembolism (20 sources) Personal history of other venous thrombosis and embolism; Translations: [Thrombosis of superficial vein of lower limb] Onset: 08-07-2017 05-16-2019 Episodic Residual codes; unclassified (16 sources) Restlessness and agitation; Translations: [Restlessness and agitation] Onset: 08-03-2023 Resolved: 08-03-2023 08-03-2023 Chronic Residual codes; unclassified (14 sources) Patient encounter status; Translations: [Other specified health status] Onset: 11-23-2021 Episodic Residual codes; unclassified (5 sources) At risk for imbalanced nutrition, less than body requirements; Translations: [Other specified personal risk factors, not elsewhere classified] Onset: 12-15-2018 08-23-2023 Episodic Sprains and strains (1 source) Strain of muscle, fascia and tendon of other parts of biceps, left arm, initial encounter; Translations: [STRN MSC F TEND OTH PRT BIC LA INIT] Onset: 11-03-2021 Episodic Unclassified (12 sources) Wound ; Translations: [Traumatic wound] 01-03-2019 Unclassified (1 source) Cough R05.9 Unclassified (2 sources) Chronic cough R05.3 Results Test Name Value Interpretation Reference Range Facility CT Head WO contrastOrdered B y: Marky Arcenio on 09-05-2023 CT DLP 460.03 (mGy.cm) [facility] Work Phone: CT Series Topogram,HEAD WO [facility] Work Phone: CTDI VOL 0.17 (mGy),26.68 (mGy) [facility] Work Phone: PHANTOM TYPE IEC Head Dosimetry Phantom,IEC Head Dosimetry Phantom [facility] Work Phone: [facility] Work Phone: CT Head WO contraston 2023 Marky Rg MD - 09/05/2023 EXAMINATION: CT HEAD W/O CONTRAST 09/05/2023 09:27 AM CLINICAL HISTORY: SDH evaluation ASSOCIATED DIAGNOSIS: SDH (subdural hematoma) (HCC) ORDERING PROVIDER: DERICK EDWARDS TECHNOLOGISTS NOTE: COMPARISON: CT of the brain 08/14/2023 TECHNIQUE: Thin axial imaging of the head was performed without intravenous contrast. FINDINGS: Postprocedural changes of left frontal and parietal katty holes for subdural hematoma evacuation and left middle meningeal artery embolization. Residual hypodense left frontal subdural hematoma measures 4 mm with mild overlying dural thickening. No significant mass effect, evidence of rebleeding, new intracranial hemorrhage elsewhere in the brain, or CT evidence of acute territorial infarction. Moderate generalized brain parenchymal volume loss with commensurate ventricular caliber. Patchy hypodensities in supratentorial white matter are nonspecific but favor sequela of moderate chronic small vessel ischemia. Small remote subinsular infarcts. Atheromatous calcifications of the carotid siphons. The paranasal sinuses and tympanomastoid cavities are clear. IMPRESSION: Postoperative changes of left subdural hematoma evacuation and middle meningeal artery embolization without evidence of rebleeding since 08/14/2023. Residual thin hypodense subdural hematoma over the left cerebral convexity without significant mass effect. MACRO: None [facility] Radiology Study observation (narrative) [facility] Progress Noteson 08-30-2023 Client Account Assistant Authentication Interface Message Text Normal The [facility] ED Note-Physicianon 08-28-19 ED Note-Physician Basic Information Time Seen: Marino DEL RIO, Aurea Guido 08/12/2023 16:04 Chief Complaint Pt came with the squad d/t AMS and increased confusion that had been worst since . Pt fell 2 wks ago and got Subdural hematoma. Hx of seizure and dementia. No weakness, no numbness, no dizziness, no speech or vision changes. History of Present Illness Patient is a 83-year-old female with a history of hypertension, seizures, and subdural hematoma who presents via EMS from [facility] with 3 days of worsening altered mental status and confusion. Per staff, the patient is typically A&O x 4 however her orientation has been deteriorating for the past 3 days. Per family, the patient suffered a subdural hematoma 2 weeks ago after a fall in which she was transferred to [facility] for observation and started on enoxaparin. Family states they saw the patient on Sunday and Sunday in which she was acting baseline which included walking around and feeding herself. They stated night she began to deteriorate cognitively in which she was experiencing difficulty communicating. Since then she has become increasingly confused and unable to care for herself. They deny any known new falls. They state patient takes 81 mg of aspirin but is otherwise not on anticoagulants. Patient denies chest pain or current shortness of breath. Review of Systems A 10 point review of systems is negative except as noted above. Medical and Surgical History: Reviewed and noted Social history: Lives at home Family History: Reviewed. Physical Exam Vitals & Measurements T: 36.7 ?C(Oral) HR: 74(Peripheral) RR: 17 BP: 143/67 SpO2: 93% HT: 170 cm WT: 81 kg BMI: 28.03 General: The patient appears well and in no apparent distress. Patient is resting comfortably on cart. Skin: Warm, dry, no pallor noted. Ecchymosis to right hand with a bandage in place Head: Normocephalic, atraumatic Eye: PERRLA, EOMI ENT: Moist mucus membranes Cardiovascular: Regular rate normal peripheral perfusion Respiratory: No respiratory distress no accessory muscle use no obvious audible wheezing Chest Wall: no deformity Musculoskeletal: normal ROM, no deformity, generalized swelling to left upper extremity GI: Soft no obvious distention. No rebound or rigidity. No guarding. No tenderness. Neurological: Oriented to self, moves all extremities equal strength and symmetry, follows commands Psychiatric: Cooperative and appropriate Medical Decision Making Patient is a 83-year-old female with a history of hypertension, seizures, and subdural hematoma who presents via EMS from [facility] with 3 days of worsening altered mental status and confusion. GCS 14 due to confusion. [id number] glucose is 133. Troponin is 5.10. Red blood cell is 3.3. Chest x-ray showed no acute changes from prior imaging. CT head is showing an acute on chronic subdural hematoma with midline shift. Patient was previously at [facility] on 08/03 due to a subdural hematoma following a fall and was placed on enoxaparin 30 mg. This case was discussed with our trauma surgeon, Dr. Cao, who reviewed the imaging and advised the patient be transferred back to [facility]. She wanted the patient started on 3% saline 500 cc bolus. The case was discussed with [facility] and the patient was accepted by Dr. Washburn. Patient will be flown to [facility]. The case was discussed with the family and all questions were answered. 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 UA with Cult Rflx XR Chest Single View Disposition Plan Patient Discharge Condition Stable Discharge Disposition Transfer to [facility] Discharge Prescription List Prescriptions No active prescription medications Follow-up No qualifying data available Attestation Patient seen and evaluated by the physician certified physician's assistant. Attending physician was present in the emergency department and supervised care. This visit was performed by both the physician and an APC. I performed all aspects of the MDM as documented. This report was transcribed using voice recognition software. Every effort was made to ensure accuracy, however, inadvertently computerized transcrip (more content not included)... Normal [facility] Comment on above: Result Comment: Elec tronically Signed By: Aurea Pichardo PA-C\.br\Date and Time Signed: 08/12/23 17:24 EDT\.br\Electronically Co-Signed By: James Nguyen MD\.br\Date and Time Co-Signed: 08/28/23 09:06 EDT [employer] 08-24-2023 Client Account Assistant Authentication Interface Message Text Normal [facility] [employer] [facility] Discharge Planning Noteon Client Account Assistant Authentication Interface Message Text Normal [facility] [employer] [facility] BASIC METABOLIC PANELon 08-10 Anion gap [Moles/Vol] 12 mmol/L Normal 10-20 [facility] [employer] [facility] Comment on above: Performed By: #### ALFIE Yoo PHOS ####S PATHOLOGY [id number] [place], [place], Calcium [Mass/Vol] 9.0 mg/dL Normal 8.6-10.3 [facility] [employer] [facility] Comment on above: Performed By: #### ALFIE Yoo, PHOS ####[facility] PATHOLOGY [id number] [place], [place], Chloride [Moles/Vol] 102 mmol/L Normal 98-107 [facility] [employer] [facility] Comment on above: Performed By: #### ALFIE Yoo PHOS ####[facility] PATHOLOGY [id number] [place], CO2 [Moles/Vol] 26 mmol/L Normal 21-31 [facility] [employer] [facility] Comment on above: Performed By: #### ALFEI Yoo PHOS ####[facility] PATHOLOGY [id number] [place], [place], Creatinine [Mass/Vol] 0.59 mg/dL Low 0.60-1.20 [facility] [employer] [facility] Comment on above: Performed By: #### ALFIE Yoo, PHOS ####[facility] PATHOLOGY [id number] [place], ESTIMATED GFR (CKD-EPI) 89 mL/min/1.73sqm Normal >=60 [facility] Comment on above: Result Comment: 2020 CKD EPI Equation using Creatinine without RaceComment: Estimated glomerular filtration rate (eGFR) is calculated without a race coefficient. Values should be interpreted in the context of the patient's full clinical presentation.Reference:1. Nestor C, Isabella M, Kaz FUENTES, et al.. A Unifying Approach for GFR Estimation: Recommendations of the NKF-ASN Task Force on Reassessing the Inclusion of Race in Diagnosing Kidney Disease. [place] Journal of Kidney Diseases 2021;79(2):268-88.e1.2. N Engl J Med 2020 Vol. 385 Issue 19 Pages 6007-0944 Performed By: #### ALFIE Yoo, PHOS ####[facility] PATHOLOGY [id number] [place], Glucose [Mass/Vol] 104 mg/dL Normal 74-109 [facility] Comment on above: Performed By: #### ALFIE Yoo, PHOS ####[facility] PATHOLOGY [id number] [place], Potassium [Moles/Vol] 4.1 mmol/L Normal 3.5-5.0 [facility] Comment on above: Performed By: #### ALFIE Yoo, PHOS ####[facility] PATHOLOGY [id number] [place], Sodium [Moles/Vol] 136 mmol/L Normal 136-145 The [facility] Comment on above: Performed By: #### ALFIE Yoo, PHOS ####[facility] PATHOLOGY [id number] [place], Urea nitrogen [Mass/Vol] 25 mg/dL Normal 7-25 The [facility] Comment on above: Performed By: #### ALFIE Yoo, PHOS ####[facility] PATHOLOGY [id number] [place], [place], Basic metabolic 2000 panelon 08-23-2023 Anion gap [Moles/Vol] 12 mmol/L 10 - 20 [facility] Calcium [Mass/Vol] 9.0 mg/dL 8.6 - 10. 3 mg/dL [facility] Chloride [Moles/Vol] 102 mmol/L 98 - 10 7 mmol/L [facility] CO2 [Moles/Vol] 26 mmol/L 21 - 31 mmol/L [facility] Creatinine [Mass/Vol] 0.59 mg/dL Low 0.60 - 1.20 mg/dL [facility] GFR/1.73 sq M.predicted CKD-EPI (S/P/Bld) [Vol rate/Area] 89 - PINF [facility] Comment on above: 2020 CKD EPI Equatio n using Creatinine without Race Comment: Estimated glomerular filtration rate (eGFR) is calculated without a race coefficient. Values should be interpreted in the context of the patient's full clinical presentation. Reference: 1. Nestor C, Isabella M, Kaz DC, et al.. A Unifying Approach for GFR Estimation: Recommendations of the NKF-ASN Task Force on Reassessing the Inclusion of Race in Diagnosing Kidney Disease. [place] Journal of Kidney Diseases 202;79(2):268-88.e1. 2. N Engl J Med 2020 Vol. 385 Issue 19 Pages 3553-9325 Glucose [Mass/Vol] 104 mg/dL 74 - 109 mg/dL [facility] Interpretation and review of laboratory results Abnormal [facility] Potassium [Moles/Vol] 4.1 mmol/L 3.5 - 5.0 mmol/L [facility] Sodium [Moles/Vol] 136 mmol/L 136 - 145 mmol/L [facility] Urea nitrogen [Mass/Vol] 25 mg/dL 7 - 25 mg/dL [facility] CBC panel Auto (Bld)on 08-22 Erythrocyte distribution width (RBC) [Ratio] 14.5 % 11.5 - 14.5 % [facility] Hematocrit (Bld) [Volume fraction] 29.0 % Low 36.0 - 46.0 % [facility] Hemoglobin (Bld) [Mass/Vol] 9.5 g/dL Low 12.0 - 15.0 g/dL [facility] Interpretation and review of laboratory results Abnormal [facility] MCH (RBC) [Entitic mass] 29.8 pg 26.0 - 34.0 pg [facility] MCHC (RBC) [Mass/Vol] 32.6 g/dL 32.0 - 35.9 g/dL [facility] MCV (RBC) [Entitic vol] 91 fL 80 - 100 fL [facility] Platelet mean volume (Bld) [Entitic vol] 6.9 fL Low 7.5 - 11.2 fL [facility] Platelets (Bld) [#/Vol] 268 10*3/uL 150 - 400 K/uL [facility] RBC (Bld) [#/Vol] 3.18 10*6/uL Low [facility] WBC (Bld) [#/Vol] 5.8 10*3/uL 4.5 - 11.5 K/uL [facility] COMPLETE BLOOD COUNTon 08-22 Erythrocyte distribution width (RBC) [Ratio] 14.5 % Normal 11.5-14.5 The [facility] Comment on above: Performed By: #### C BC ####S PATHOLOGY [id number] [place], Hematocrit (Bld) [Volume fraction] 29.0 % Low 36.0-46.0 [facility] Comment on above: Performed By: #### C BC ####S PATHOLOGY [id number] [place], Hemoglobin (Bld) [Mass/Vol] 9.5 g/dL Low 12.0-15.0 [facility] Comment on above: Performed By: #### C BC ####S PATHOLOGY [id number] [place], MCH (RBC) [Entitic mass] 29.8 pg Normal 26.0-34.0 [facility] Comment on above: Performed By: #### C BC ####S PATHOLOGY [id number] [place], MCHC (RBC) [Mass/Vol] 32.6 g/dL Normal 32.0-35.9 [facility] Comment on above: Performed By: #### C BC ####S PATHOLOGY [id number] [place], MCV (RBC) [Entitic vol] 91 fL Normal 80-100 [facility] Comment on above: Performed By: #### C BC ####S PATHOLOGY [id number] [place], Platelet mean volume (Bld) [Entitic vol] 6.9 fL Low 7.5-11.2 [facility] Comment on above: Performed By: #### C BC ####S PATHOLOGY [id number] [place], Platelets (Bld) [#/Vol] 268 10*3/uL Normal 150-400 [facility] Comment on above: Performed By: #### C BC ####S PATHOLOGY [id number] [place], RBC (Bld) [#/Vol] 3.18 10*6/uL Low 4.00-5.20 [facility] Comment on above: Performed By: #### C BC ####[facility] PATHOLOGY [id number] [place], WBC (Bld) [#/Vol] 5.8 10*3/uL Normal 4.5-11.5 The [facility] Comment on above: Performed By: #### C BC ####[facility] PATHOLOGY [id number] [place], [place], [employer] 08-23-2023 Client Account Assistant Authentication Interface Message Text Normal The [facility] MAGNESIUMon 08-23-2023 Magnesium [Mass/Vol] 2.2 mg/dL 1.9 - 2 .7 mg/dL [facility] Magnesium [Mass/Vol] 2.2 mg/dL Normal 1.9-2.7 [facility] Comment on above: Performed By: #### M G, CH8, PHOS ####[facility] PATHOLOGY [id number] [place], [place], No Panel Informationon 08-22 Interpretation and review of laboratory results Normal [facility] PHOSPHORUSon 08-23-2023 Phosphate [Mass/Vol] 3.5 mg/dL 2.5 - 5 .0 mg/dL [facility] Phosphate [Mass/Vol] 3.5 mg/dL Normal 2.5-5.0 [facility] Comment on above: Performed By: #### ALFIE Yoo, PHOS ####[facility] PATHOLOGY [id number] [place], [place], Progress Noteson 08-23-2023 Client Account Assistant Authentication Interface Message Text Normal [facility] [employer] Client Account Assistant Authentication Interface Message Text Normal [facility] XR ABDOMEN AP 1 VIEWon 08-22 XR ABDOMEN AP 1 VIEW Normal [facility] XR Abdomen APon 08-23-2023 EXAMINATION: XR ABDO MEN AP 1 VIEW 08/22/2023 10:59 PM CLINICAL HISTORY: Step 2 of Corpak 2 Step process ASSOCIATED DIAGNOSIS: ORDERING PROVIDER: OG SALDANA TECHNORACIO NOTE: COMPARISON: XR ABDOMEN AP 1 VIEW 08/22/2023, 3:06 PM FINDINGS: IMPRESSION: MALPOSITION OF CORPAK: Corpak sidehole is just beyond the gastroesophageal junction and advancement a minimum of 5 cm is recommended. Collegial Note provided via [employer] to Sunitha Amaro with acknowledgment. MACRO: None RADIOLOGY Artem Grace MD - 08/23/2023 EXAMINATION: XR ABDOMEN AP 1 VIEW 08/22/2023 10:59 PM CLINICAL HISTORY: Step 2 of Corpak 2 Step process ASSOCIATED DIAGNOSIS: ORDERING PROVIDER: OG AMANDA NOTE: COMPARISON: XR ABDOMEN AP 1 VIEW 08/22/2023, 3:06 PM FINDINGS: IMPRESSION: MALPOSITION OF CORPAK: Corpak sidehole is just beyond the gastroesophageal junction and advancement a minimum of 5 cm is recommended. Collegial Note provided via [employer] to Sunitha Amaro with acknowledgment. MACRO: None [facility] [employer] BASIC METABOLIC PANELon 08-10 Anion gap [Moles/Vol] 10 mmol/L Normal 10-[address] [facility] Comment on above: Performed By: #### ALFIE Yoo, PHOS ####[facility] PATHOLOGY [id number] [place], Calcium [Mass/Vol] 8.8 mg/dL Normal 8.6-10.[address] [facility] Comment on above: Performed By: #### ALFEI Yoo, PHOS ####[facility] PATHOLOGY [id number] [place], Chloride [Moles/Vol] 104 mmol/L Normal 98-107 [facility] Comment on above: Performed By: #### ALFIE Yoo PHOS ####[facility] PATHOLOGY [id number] [place], CO2 [Moles/Vol] 27 mmol/L Normal 21-31 [facility] Comment on above: Performed By: #### ALFIE Yoo, ANNIES ####[facility] PATHOLOGY [id number] [place], Creatinine [Mass/Vol] 0.61 mg/dL Normal 0.60-1.20 [facility] Comment on above: Performed By: #### ALFIE Yoo PHOS ####[facility] PATHOLOGY [id number] [place], ESTIMATED GFR (CKD-EPI) 88 mL/min/1.73sqm Normal >=[address] [facility] Comment on above: Result Comment: 2020 CKD EPI Equation using Creatinine without RaceComment: Estimated glomerular filtration rate (eGFR) is calculated without a race coefficient. Values should be interpreted in the context of the patient's full clinical presentation.Reference:1. Nestor C, Isabella M, Kaz FUENTES, et al.. A Unifying Approach for GFR Estimation: Recommendations of the NKF-ASN Task Force on Reassessing the Inclusion of Race in Diagnosing Kidney Disease. [place] Journal of Kidney Diseases 2021;79(2):268-88.e1.2. N Engl J Med 2020 Vol. 385 Issue 19 Pages 1341-8469 Performed By: #### ALFIE Yoo PHOS ####[facility] PATHOLOGY [id number] [place], Glucose [Mass/Vol] 100 mg/dL Normal 74-[address] [facility] Comment on above: Performed By: #### ALFIE Yoo, ANNIES ####[facility] PATHOLOGY [id number] [place], Potassium [Moles/Vol] 4.2 mmol/L Normal 3.5-5.[address] [facility] Comment on above: Performed By: #### M ALFIE Arthur, PHOS ####[facility] PATHOLOGY [id number] [place], Sodium [Moles/Vol] 137 mmol/L Normal 136-145 [facility] Comment on above: Performed By: #### Brittany ALFIE Arthur, PHOS ####[facility] PATHOLOGY [id number] [place], Urea nitrogen [Mass/Vol] 30 mg/dL High 7-25 [facility] Comment on above: Performed By: #### M ALFIE Arthur, PHOS ####[facility] PATHOLOGY [id number] [place], Basic metabolic 2000 panelon 08-22-2023 Anion gap [Moles/Vol] 10 mmol/L 10 - 20 [facility] Calcium [Mass/Vol] 8.8 mg/dL 8.6 - 10. 3 mg/dL [facility] Chloride [Moles/Vol] 104 mmol/L 98 - 10 7 mmol/L [facility] CO2 [Moles/Vol] 27 mmol/L 21 - 31 mmol/L [facility] Creatinine [Mass/Vol] 0.61 mg/dL 0.60 - 1.20 mg/dL [facility] GFR/1.73 sq M.predicted CKD-EPI (S/P/Bld) [Vol rate/Area] 88 - PINF [facility] Comment on above: 2020 CKD EPI Equatio n using Creatinine without Race Comment: Estimated glomerular filtration rate (eGFR) is calculated without a race coefficient. Values should be interpreted in the context of the patient's full clinical presentation. Reference: 1. Nestor C, Isabella M, Kaz FUENTES, et al.. A Unifying Approach for GFR Estimation: Recommendations of the NKF-ASN Task Force on Reassessing the Inclusion of Race in Diagnosing Kidney Disease. [place] Journal of Kidney Diseases 202;79(2):268-88.e1. 2. N Engl J Med 2020 Vol. 385 Issue 19 Pages 8726-9523 Glucose [Mass/Vol] 100 mg/dL 74 - 109 mg/dL [facility] Interpretation and review of laboratory results Abnormal [facility] Potassium [Moles/Vol] 4.2 mmol/L 3.5 - 5.0 mmol/L [facility] Sodium [Moles/Vol] 137 mmol/L 136 - 145 mmol/L [facility] Urea nitrogen [Mass/Vol] 30 mg/dL High 7 - 25 mg/dL [facility] CBC panel Auto (Bld)on 08-21 Erythrocyte distribution width (RBC) [Ratio] 15.1 % High 11.5 - 14.5 % [facility] Hematocrit (Bld) [Volume fraction] 28.4 % Low 36.0 - 46.0 % [facility] Hemoglobin (Bld) [Mass/Vol] 9.2 g/dL Low 12.0 - 15.0 g/dL [facility] Interpretation and review of laboratory results Abnormal [facility] MCH (RBC) [Entitic mass] 29.5 pg 26.0 - 34.0 pg [facility] MCHC (RBC) [Mass/Vol] 32.2 g/dL 32.0 - 35.9 g/dL [facility] MCV (RBC) [Entitic vol] 91 fL 80 - 100 fL [facility] Platelet mean volume (Bld) [Entitic vol] 6.8 fL Low 7.5 - 11.2 fL [facility] Platelets (Bld) [#/Vol] 285 10*3/uL 150 - 400 K/uL [facility] RBC (Bld) [#/Vol] 3.11 10*6/uL Low [facility] WBC (Bld) [#/Vol] 6.6 10*3/uL 4.5 - 11.5 K/uL [facility] COMPLETE BLOOD COUNTon 08-21 Erythrocyte distribution width (RBC) [Ratio] 15.1 % High 11.5-14.5 [facility] Comment on above: Performed By: #### C BC ####[facility] PATHOLOGY [id number] [place], Hematocrit (Bld) [Volume fraction] 28.4 % Low 36.0-46.0 [facility] Comment on above: Performed By: #### C BC ####[facility] PATHOLOGY [id number] [place], Hemoglobin (Bld) [Mass/Vol] 9.2 g/dL Low 12.0-15.0 [facility] Comment on above: Performed By: #### C BC ####[facility] PATHOLOGY [id number] [place], MCH (RBC) [Entitic mass] 29.5 pg Normal 26.0-34.0 [facility] Comment on above: Performed By: #### C BC ####[facility] PATHOLOGY [id number] [place], MCHC (RBC) [Mass/Vol] 32.2 g/dL Normal 32.0-35.9 [facility] Comment on above: Performed By: #### C BC ####[facility] PATHOLOGY [id number] [place], MCV (RBC) [Entitic vol] 91 fL Normal 80-100 [facility] Comment on above: Performed By: #### C BC ####[facility] PATHOLOGY [id number] [place], Platelet mean volume (Bld) [Entitic vol] 6.8 fL Low 7.5-11.2 [facility] Comment on above: Performed By: #### C BC ####[facility] PATHOLOGY [id number] [place], Platelets (Bld) [#/Vol] 285 10*3/uL Normal 150-400 [facility] Comment on above: Performed By: #### C BC ####[facility] PATHOLOGY [id number] [place], RBC (Bld) [#/Vol] 3.11 10*6/uL Low 4.00-5.20 [facility] Comment on above: Performed By: #### C BC ####[facility] PATHOLOGY [id number] [place], WBC (Bld) [#/Vol] 6.6 10*3/uL Normal 4.5-11.5 [facility] Comment on above: Performed By: #### C BC ####S PATHOLOGY [id number] [place], [place], [facility] Client Account Assistant Authentication Interface Message Text Normal [facility] Client Account Assistant Authentication Interface Message Text Normal [facility] MAGNESIUMon 08-22-2023 Interpretation and review of laboratory results Abnormal [facility] Magnesium [Mass/Vol] 1.8 mg/dL Low 1.9 - 2 .7 mg/dL [facility] Magnesium [Mass/Vol] 1.8 mg/dL Low 1.9-2.7 The [facility] Comment on above: Performed By: #### ALFIE Yoo, CHASE ####[facility] PATHOLOGY [id number] [place], No Panel Informationon 08-21 [facility] PHOSPHORUSon 08-22-2023 Interpretation and review of laboratory results Normal [facility] Phosphate [Mass/Vol] 3.0 mg/dL 2.5 - 5 .0 mg/dL [facility] Phosphate [Mass/Vol] 3.0 mg/dL Normal 2.5-5.0 [facility] Comment on above: Performed By: #### ALFIE Yoo, CHASE ####[facility] PATHOLOGY [id number] [place], [place], Progress Noteson 08-22-2023 Client Account Assistant Authentication Interface Message Text Normal [facility] Progress Notes - NoteWritero n 08-22-2023 Client Account Assistant Authentication Interface Message Text Normal [facility] XR ABDOMEN AP 1 VIEWon 08-21 XR ABDOMEN AP 1 VIEW Normal [facility] XR Abdomen APon 08-22-2023 Radiology Study observation (narrative) [facility] EXAMINATION: XR ABDO MEN AP 1 VIEW 08/22/2023 02:52 PM CLINICAL HISTORY: evaluate corpak location ASSOCIATED DIAGNOSIS: ORDERING PROVIDER: JOHANN HERNANDEZ TECHNOLOGISTS NOTE: COMPARISON: 08/16/2023 FINDINGS: Corpak feeding tube is demonstrated. The tip is in a position in the region of first portion of the duodenum or pyloric channel area. Bowel pattern is nonobstructive and nonspecific. IMPRESSION: Corpak tube is advanced in the region of pyloric channel or first portion of the duodenum. MACRO: None RADIOLOGY Samantha Harmon MD - 08/22/2023 EXAMINATION: XR ABDOMEN AP 1 VIEW 08/22/2023 02:52 PM CLINICAL HISTORY: evaluate corpak location ASSOCIATED DIAGNOSIS: ORDERING PROVIDER: JOHANN HERNANDEZ TECHNOLOGISTS NOTE: COMPARISON: 08/16/2023 FINDINGS: Corpak feeding tube is demonstrated. The tip is in a position in the region of first portion of the duodenum or pyloric channel area. Bowel pattern is nonobstructive and nonspecific. IMPRESSION: Corpak tube is advanced in the region of pyloric channel or first portion of the duodenum. MACRO: None [employer] Radiology Study observation (narrative) [employer] XR Abdomen APOrdered By: Remy Harmon on 08-22-2023 [employer] Work Phone: BASIC METABOLIC PANELon 08-10 Anion gap [Moles/Vol] 12 mmol/L Normal 10-20 The [employer] [facility] Comment on above: Performed By: #### Jr Red PHOS, MG ####[facility] [id number] [place], [place], Calcium [Mass/Vol] 9.2 mg/dL Normal 8.6-10.3 The [employer] [facility] Comment on above: Performed By: #### Jr Red PHOS, MG ####[facility] [id number] [place], Chloride [Moles/Vol] 101 mmol/L Normal 98-107 The [employer] [facility] Comment on above: Performed By: #### Jr HSurinder, PHOS, MG ####[facility] [id number] [place], CO2 [Moles/Vol] 29 mmol/L Normal 21-31 The [employer] [facility] Comment on above: Performed By: #### Jr HSurinder PHOS, MG ####[facility] [id number] [place], Creatinine [Mass/Vol] 0.61 mg/dL Normal 0.60-1.20 The [employer] [facility] Comment on above: Performed By: #### Jr H8 PHOS, MG ####[facility] [id number] [place], ESTIMATED GFR (CKD-EPI) 88 mL/min/1.73sqm Normal >=60 The [employer] [facility] Comment on above: Result Comment: 2020 CKD EPI Equation using Creatinine without RaceComment: Estimated glomerular filtration rate (eGFR) is calculated without a race coefficient. Values should be interpreted in the context of the patient's full clinical presentation.Reference:1. Nestor Norris, Isabella M, Kaz FUENTES, et al.. A Unifying Approach for GFR Estimation: Recommendations of the NKF-ASN Task Force on Reassessing the Inclusion of Race in Diagnosing Kidney Disease. [place] Journal of Kidney Diseases 202;79(2):268-88.e1.2. N Engl J Med 1 Vol. 385 Issue 19 Pages 5806-5167 Performed By: #### C H8 PHOS, MG ####[facility] [id number] [place], Glucose [Mass/Vol] 100 mg/dL Normal 74-109 [facility] Comment on above: Performed By: #### C H8 PHOS, MG ####[facility] [id number] [place], Potassium [Moles/Vol] 4.1 mmol/L Normal 3.5-5.0 [facility] Comment on above: Performed By: #### C H8, PHOS, MG ####[facility] [id number] [place], Sodium [Moles/Vol] 138 mmol/L Normal 136-145 [facility] Comment on above: Performed By: #### C H8, PHOS, MG ####[facility] [id number] [place], Urea nitrogen [Mass/Vol] 29 mg/dL High 7-25 The [facility] Comment on above: Performed By: #### C H8, PHOS, MG ####[facility] [id number] [place], Basic metabolic 2000 panelon 08-21-2023 Anion gap [Moles/Vol] 12 mmol/L 10 - 20 [facility] Calcium [Mass/Vol] 9.2 mg/dL 8.6 - 10. 3 mg/dL [facility] Chloride [Moles/Vol] 101 mmol/L 98 - 10 7 mmol/L [facility] CO2 [Moles/Vol] 29 mmol/L 21 - 31 mmol/L [facility] Creatinine [Mass/Vol] 0.61 mg/dL 0.60 - 1.20 mg/dL [facility] GFR/1.73 sq M.predicted CKD-EPI (S/P/Bld) [Vol rate/Area] 88 - PINF [facility] Comment on above: 2020 CKD EPI Equatio n using Creatinine without Race Comment: Estimated glomerular filtration rate (eGFR) is calculated without a race coefficient. Values should be interpreted in the context of the patient's full clinical presentation. Reference: 1. Nestor C, Isabella M, Kaz DC, et al.. A Unifying Approach for GFR Estimation: Recommendations of the NKF-ASN Task Force on Reassessing the Inclusion of Race in Diagnosing Kidney Disease. [place] Journal of Kidney Diseases 2021;79(2):268-88.e1. 2. N Engl J Med 2020 Vol. 385 Issue 19 Pages 3111-7023 Glucose [Mass/Vol] 100 mg/dL 74 - 109 mg/dL [facility] Interpretation and review of laboratory results Abnormal [facility] Potassium [Moles/Vol] 4.1 mmol/L 3.5 - 5.0 mmol/L [facility] Sodium [Moles/Vol] 138 mmol/L 136 - 145 mmol/L [facility] Urea nitrogen [Mass/Vol] 29 mg/dL High 7 - 25 mg/dL [facility] CBC panel Auto (Bld)on 08-20 Erythrocyte distribution width (RBC) [Ratio] 14.9 % High 11.5 - 14.5 % [facility] Hematocrit (Bld) [Volume fraction] 27.4 % Low 36.0 - 46.0 % [facility] Hemoglobin (Bld) [Mass/Vol] 9.1 g/dL Low 12.0 - 15.0 g/dL [facility] Interpretation and review of laboratory results Abnormal [facility] MCH (RBC) [Entitic mass] 30.3 pg 26.0 - 34.0 pg [facility] MCHC (RBC) [Mass/Vol] 33.2 g/dL 32.0 - 35.9 g/dL [facility] MCV (RBC) [Entitic vol] 91 fL 80 - 100 fL [facility] Platelet mean volume (Bld) [Entitic vol] 7.7 fL 7.5 - 11.2 fL [facility] Platelets (Bld) [#/Vol] 296 10*3/uL 150 - 400 K/uL [facility] RBC (Bld) [#/Vol] 3.00 10*6/uL Low [facility] WBC (Bld) [#/Vol] 7.0 10*3/uL 4.5 - 11.5 K/uL [facility] COMPLETE BLOOD COUNTon 08-20 Erythrocyte distribution width (RBC) [Ratio] 14.9 % High 11.5-14.5 [facility] Comment on above: Performed By: #### C BC ####[facility] PATHOLOGY [id number] [place], Hematocrit (Bld) [Volume fraction] 27.4 % Low 36.0-46.0 [facility] Comment on above: Performed By: #### C BC ####[facility] PATHOLOGY [id number] [place] [address], Hemoglobin (Bld) [Mass/Vol] 9.1 g/dL Low 12.0-15.0 [facility] Comment on above: Performed By: #### C BC ####[facility] PATHOLOGY [id number] [place], MCH (RBC) [Entitic mass] 30.3 pg Normal 26.0-34.0 [facility] Comment on above: Performed By: #### C BC ####[facility] PATHOLOGY [id number] [place], MCHC (RBC) [Mass/Vol] 33.2 g/dL Normal 32.0-35.9 [facility] Comment on above: Performed By: #### C BC ####[facility] PATHOLOGY [id number] [place], MCV (RBC) [Entitic vol] 91 fL Normal 80-100 [facility] Comment on above: Performed By: #### C BC ####S PATHOLOGY [id number] [place], Platelet mean volume (Bld) [Entitic vol] 7.7 fL Normal 7.5-11.2 [facility] Comment on above: Performed By: #### C BC ####[facility] [id number] [place], Platelets (Bld) [#/Vol] 296 10*3/uL Normal 150-400 [facility] Comment on above: Performed By: #### C BC ####S PATHOLOGY [id number] [place], RBC (Bld) [#/Vol] 3.00 10*6/uL Low 4.00-5.20 [facility] Comment on above: Performed By: #### C BC ####S PATHOLOGY [id number] [place], WBC (Bld) [#/Vol] 7.0 10*3/uL Normal 4.5-11.5 [facility] Comment on above: Performed By: #### C BC ####[facility] PATHOLOGY [id number] [place], MAGNESIUMOrdered By: Dave Rodríguez on 08-21-2023 Interpretation and review of laboratory results Abnormal [facility] Magnesium [Mass/Vol] 2.9 mg/dL High 1.9 - 2 .7 mg/dL [facility] MAGNESIUMon 08-21-2023 Magnesium [Mass/Vol] 2.9 mg/dL High 1.9-2.7 [facility] Comment on above: Performed By: #### Jr HSurinder, PHOS, MG ####[facility] [id number] [place], No Panel Informationon 08-20 [facility] PHOSPHORUSon 08-21-2023 Interpretation and review of laboratory results Normal [facility] Phosphate [Mass/Vol] 3.7 mg/dL 2.5 - 5 .0 mg/dL [facility] Phosphate [Mass/Vol] 3.7 mg/dL Normal 2.5-5.0 [facility] Comment on above: Performed By: #### Jr HSurinder, PHOS, MG ####[facility] [id number] [place], Progress Noteson 08-21-2023 Client Account Assistant Authentication Interface Message Text Normal [facility] Client Account Assistant Authentication Interface Message Text Normal [facility] Treatment Plan Noteon 2023 Client Account Assistant Authentication Interface Message Text Normal [facility] BASIC METABOLIC PANELon 08-10 Anion gap [Moles/Vol] 13 mmol/L Normal 10-[address] [facility] Comment on above: Performed By: #### C H8, MG, PHOS ####[facility] [id number] [place], Calcium [Mass/Vol] 9.0 mg/dL Normal 8.6-10.[address] [facility] Comment on above: Performed By: #### Jr H8 MG, PHOS ####[facility] PATH[facility] [id number] [place], Chloride [Moles/Vol] 104 mmol/L Normal 98-[address] [facility] Comment on above: Performed By: #### Jr H8 MG, PHOS ####[facility] PATH[facility] [id number] [place], CO2 [Moles/Vol] 26 mmol/L Normal 21-[address] [facility] Comment on above: Performed By: #### Jr H8 MG, PHOS ####[facility] PATHOLOG[facility] [id number] [place], Creatinine [Mass/Vol] 0.49 mg/dL Low 0.60-1.[address] [facility] Comment on above: Performed By: #### C H8 MG, PHOS ####[facility] PATHOLOG[facility] [id number] [place], ESTIMATED GFR (CKD-EPI) 93 mL/min/1.73sqm Normal >=60 [facility] Comment on above: Result Comment: 2020 CKD EPI Equation using Creatinine without RaceComment: Estimated glomerular filtration rate (eGFR) is calculated without a race coefficient. Values should be interpreted in the context of the patient's full clinical presentation.Reference:1. Nestor Norris, Isabella M, Kaz FUENTES, et al.. A Unifying Approach for GFR Estimation: Recommendations of the NKF-ASN Task Force on Reassessing the Inclusion of Race in Diagnosing Kidney Disease. [place] Journal of Kidney Diseases 2021;79(2):268-88.e1.2. N Engl J Med 1 Vol. 385 Issue 19 Pages 7775-7050 Performed By: #### MG Mims PHOS ####[facility] PATHOLOGY [id number] [place], Glucose [Mass/Vol] 111 mg/dL High 74-109 [facility] Comment on above: Performed By: #### MG Prasanna, ANNIES ####[facility] PATHOLOGY [id number] [place], Potassium [Moles/Vol] 3.9 mmol/L Normal 3.5-5.0 [facility] Comment on above: Performed By: #### MG Prasanna, PHOS ####[facility] PATHOLOG[facility] [id number] [place], Sodium [Moles/Vol] 139 mmol/L Normal 136-145 [facility] Comment on above: Performed By: #### MG Prasanna, PHOS ####[facility] PATHOLOG[facility] [id number] [place], Urea nitrogen [Mass/Vol] 22 mg/dL Normal 7-25 [facility] Comment on above: Performed By: #### MG Prasanna, ANNIES ####[facility] PATHOLOG[facility] [id number] [place], Basic metabolic 2000 panelon 08-20-2023 Anion gap [Moles/Vol] 13 mmol/L 10 - 20 [facility] [Mass/Vol] 9.0 mg/dL 8.6 - 10. 3 mg/dL [facility] Chloride [Moles/Vol] 104 mmol/L 98 - 10 7 mmol/L [facility] CO2 [Moles/Vol] 26 mmol/L 21 - 31 mmol/L [facility] Creatinine [Mass/Vol] 0.49 mg/dL Low 0.60 - 1.20 mg/dL [facility] GFR/1.73 sq M.predicted CKD-EPI (S/P/Bld) [Vol rate/Area] 93 - PINF [facility] Comment on above: 2020 CKD EPI Equatio n using Creatinine without Race Comment: Estimated glomerular filtration rate (eGFR) is calculated without a race coefficient. Values should be interpreted in the context of the patient's full clinical presentation. Reference: 1. Nestor C, Isabella M, Kaz FUENTES, et al.. A Unifying Approach for GFR Estimation: Recommendations of the NKF-ASN Task Force on Reassessing the Inclusion of Race in Diagnosing Kidney Disease. [place] Journal of Kidney Diseases 2021;79(2):268-88.e1. 2. N Engl J Med 2020 Vol. 385 Issue 19 Pages 0688-9329 Glucose [Mass/Vol] 111 mg/dL High 74 - 109 mg/dL [facility] Potassium [Moles/Vol] 3.9 mmol/L 3.5 - 5.0 mmol/L [facility] Sodium [Moles/Vol] 139 mmol/L 136 - 145 mmol/L [facility] Urea nitrogen [Mass/Vol] 22 mg/dL 7 - 25 mg/dL [facility] CBC panel Auto (Bld)on 08-19 Erythrocyte distribution width (RBC) [Ratio] 14.3 % 11.5 - 14.5 % [facility] Hematocrit (Bld) [Volume fraction] 28.8 % Low 36.0 - 46.0 % [facility] Hemoglobin (Bld) [Mass/Vol] 9.5 g/dL Low 12.0 - 15.0 g/dL [facility] Interpretation and review of laboratory results Abnormal [facility] MCH (RBC) [Entitic mass] 30.2 pg 26.0 - 34.0 pg [facility] MCHC (RBC) [Mass/Vol] 33.0 g/dL 32.0 - 35.9 g/dL [facility] MCV (RBC) [Entitic vol] 92 fL 80 - 100 fL [facility] Platelet mean volume (Bld) [Entitic vol] 7.1 fL Low 7.5 - 11.2 fL [facility] Platelets (Bld) [#/Vol] 263 10*3/uL 150 - 400 K/uL [facility] RBC (Bld) [#/Vol] 3.15 10*6/uL Low [facility] WBC (Bld) [#/Vol] 7.4 10*3/uL 4.5 - 11.5 K/uL [facility] COMPLETE BLOOD COUNTon 08-19 Erythrocyte distribution width (RBC) [Ratio] 14.3 % Normal 11.5-14.5 [facility] Comment on above: Performed By: #### C BC ####[facility] PATHOLOGY [id number] [place] [address], Hematocrit (Bld) [Volume fraction] 28.8 % Low 36.0-46.0 [facility] Comment on above: Performed By: #### C BC ####[facility] PATHOLOGY [id number] [place] [address], Hemoglobin (Bld) [Mass/Vol] 9.5 g/dL Low 12.0-15.0 [facility] Comment on above: Performed By: #### C BC ####[facility] PATHOLOGY [id number] [place] [address], MCH (RBC) [Entitic mass] 30.2 pg Normal 26.0-34.0 [facility] Comment on above: Performed By: #### C BC ####[facility] PATHOLOGY [id number] [place] [address], MCHC (RBC) [Mass/Vol] 33.0 g/dL Normal 32.0-35.9 [facility] Comment on above: Performed By: #### C BC ####[facility] PATHOLOGY [id number] [place] [address], MCV (RBC) [Entitic vol] 92 fL Normal 80-100 [facility] Comment on above: Performed By: #### C BC ####[facility] PATHOLOGY [id number] [place] [address], Platelet mean volume (Bld) [Entitic vol] 7.1 fL Low 7.5-11.2 [facility] Comment on above: Performed By: #### C BC ####[facility] PATHOLOGY [id number] [place] [address], Platelets (Bld) [#/Vol] 263 10*3/uL Normal 150-400 [facility] Comment on above: Performed By: #### C BC ####[facility] PATHOLOGY [id number] [place] [address], RBC (Bld) [#/Vol] 3.15 10*6/uL Low 4.00-5.20 [facility] Comment on above: Performed By: #### C BC ####[facility] [id number] [place], WBC (Bld) [#/Vol] 7.4 10*3/uL Normal 4.5-11.5 [facility] Comment on above: Performed By: #### C BC ####[facility] [id number] [place], Care Plan Noteon 08-20-2023 Client Account Assistant Authentication Interface Message Text Normal [facility] Consultson 08-20-2023 Client Account Assistant Authentication Interface Message Text Normal [facility] Client Account Assistant Authentication Interface Message Text Normal [facility] MAGNESIUMon 08-20-2023 Magnesium [Mass/Vol] 1.7 mg/dL Low 1.9 - 2 .7 mg/dL [facility] Magnesium [Mass/Vol] 1.7 mg/dL Low 1.9-2.7 [facility] Comment on above: Performed By: #### C H8, MG, PHOS ####[facility] PATH[facility] [id number] [place], No Panel Informationon 08-19 Interpretation and review of laboratory results Abnormal [facility] PHOSPHORUSon 08-20-2023 Interpretation and review of laboratory results Normal [facility] Phosphate [Mass/Vol] 3.0 mg/dL 2.5 - 5 .0 mg/dL [facility] Phosphate [Mass/Vol] 3.0 mg/dL Normal 2.5-5.0 [facility] Comment on above: Performed By: #### C H8, MG, PHOS ####[facility] [id number] [place], Progress Noteson 08-20-2023 Client Account Assistant Authentication Interface Message Text Normal [facility] Client Account Assistant Authentication Interface Message Text PT/OT in room to get back out of bed to chair. Rollbelt removed and not on pt. Normal [facility] Client Account Assistant Authentication Interface Message Text Normal [facility] Care Plan Noteon 08-19-2023 Client Account Assistant Authentication Interface Message Text Normal [facility] Progress Noteson 08-19-2023 Client Account Assistant Authentication Interface Message Text Normal [facility] 1:1 Interactionon 08-18-2023 Client Account Assistant Authentication Interface Message Text Normal [facility] BASIC METABOLIC PANELon 06- Anion gap [Moles/Vol] 10 mmol/L Normal 10-[address] [facility] Comment on above: Performed By: #### Jr Red PHOS, MG ####[facility] [id number] [place], Calcium [Mass/Vol] 8.3 mg/dL Low 8.6-10.[address] [facility] Comment on above: Performed By: #### Jr Red PHOS, MG ####[facility] PATH[facility] [id number] [place], Chloride [Moles/Vol] 106 mmol/L Normal 98-[address] [facility] Comment on above: Performed By: #### Jr Red PHOS, MG ####[facility] [id number] [place], CO2 [Moles/Vol] 26 mmol/L Normal 21-[address] [facility] Comment on above: Performed By: #### Jr HSurinder PHOS, MG ####[facility] [id number] [place], Creatinine [Mass/Vol] 0.47 mg/dL Low 0.60-1.[address] [facility] Comment on above: Performed By: #### Jr HSurinder PHOS, MG ####[facility] [id number] [place], ESTIMATED GFR (CKD-EPI) 94 mL/min/1.73sqm Normal >=[address] [facility] Comment on above: Result Comment: 2020 CKD EPI Equation using Creatinine without RaceComment: Estimated glomerular filtration rate (eGFR) is calculated without a race coefficient. Values should be interpreted in the context of the patient's full clinical presentation.Reference:1. Nestor C, Isabella M, Kaz FUENTES, et al.. A Unifying Approach for GFR Estimation: Recommendations of the NKF-ASN Task Force on Reassessing the Inclusion of Race in Diagnosing Kidney Disease. [place] Journal of Kidney Diseases 2021;79(2):268-88.e1.2. N Engl J Med 1 Vol. 385 Issue 19 Pages 9975-8837 Performed By: #### Jr H8, PHOS, MG ####[facility] [id number] [place], Glucose [Mass/Vol] 101 mg/dL Normal 74-109 [facility] Comment on above: Performed By: #### C H8, PHOS, MG ####[facility] PATH[facility] [id number] [place], Potassium [Moles/Vol] 4.0 mmol/L Normal 3.5-5.0 [facility] Comment on above: Performed By: #### Jr H8, PHOS, MG ####[facility] PATH[facility] [id number] [place], Sodium [Moles/Vol] 138 mmol/L Normal 136-145 [facility] Comment on above: Performed By: #### C H8, PHOS, MG ####[facility] PATH[facility] [id number] [place], Urea nitrogen [Mass/Vol] 24 mg/dL Normal 7-25 [facility] Comment on above: Performed By: #### C H8, PHOS, MG ####[facility] [id number] [place], Basic metabolic 2000 panelon 08-18-2023 Anion gap [Moles/Vol] 10 mmol/L 10 - 20 [facility] Calcium [Mass/Vol] 8.3 mg/dL Low 8.6 - 10. 3 mg/dL [facility] Chloride [Moles/Vol] 106 mmol/L 98 - 10 7 mmol/L [facility] CO2 [Moles/Vol] 26 mmol/L 21 - 31 mmol/L [facility] Creatinine [Mass/Vol] 0.47 mg/dL Low 0.60 - 1.20 mg/dL [facility] GFR/1.73 sq M.predicted CKD-EPI (S/P/Bld) [Vol rate/Area] 94 - PINF [facility] Comment on above: 2020 CKD EPI Equatio n using Creatinine without Race Comment: Estimated glomerular filtration rate (eGFR) is calculated without a race coefficient. Values should be interpreted in the context of the patient's full clinical presentation. Reference: 1. Nestor Norris, Isabella M, Kaz FUENTES, et al.. A Unifying Approach for GFR Estimation: Recommendations of the NKF-ASN Task Force on Reassessing the Inclusion of Race in Diagnosing Kidney Disease. [place] Journal of Kidney Diseases 2021;79(2):268-88.e1. 2. N Engl J Med 2020 Vol. 385 Issue 19 Pages 2538-8082 Glucose [Mass/Vol] 101 mg/dL 74 - 109 mg/dL [facility] Potassium [Moles/Vol] 4.0 mmol/L 3.5 - 5.0 mmol/L [facility] Sodium [Moles/Vol] 138 mmol/L 136 - 145 mmol/L [facility] Urea nitrogen [Mass/Vol] 24 mg/dL 7 - 25 mg/dL [facility] CBC panel Auto (Bld)on 08-17 Erythrocyte distribution width (RBC) [Ratio] 14.4 % 11.5 - 14.5 % [facility] Hematocrit (Bld) [Volume fraction] 26.9 % Low 36.0 - 46.0 % [facility] Hemoglobin (Bld) [Mass/Vol] 8.8 g/dL Low 12.0 - 15.0 g/dL [facility] Interpretation and review of laboratory results Abnormal [facility] MCH (RBC) [Entitic mass] 29.8 pg 26.0 - 34.0 pg [facility] MCHC (RBC) [Mass/Vol] 32.8 g/dL 32.0 - 35.9 g/dL [facility] MCV (RBC) [Entitic vol] 91 fL 80 - 100 fL [facility] Platelet mean volume (Bld) [Entitic vol] 6.8 fL Low 7.5 - 11.2 fL [facility] Platelets (Bld) [#/Vol] 282 10*3/uL 150 - 400 K/uL [facility] RBC (Bld) [#/Vol] 2.95 10*6/uL Low [facility] WBC (Bld) [#/Vol] 5.6 10*3/uL 4.5 - 11.5 K/uL [facility] COMPLETE BLOOD COUNTon 08-17 Erythrocyte distribution width (RBC) [Ratio] 14.4 % Normal 11.5-14.5 [facility] Comment on above: Performed By: #### C BC ####[facility] PATHOLOGY [id number] [place], Hematocrit (Bld) [Volume fraction] 26.9 % Low 36.0-46.0 [facility] Comment on above: Performed By: #### C BC ####[facility] PATHOLOGY [id number] [place], Hemoglobin (Bld) [Mass/Vol] 8.8 g/dL Low 12.0-15.0 [facility] Comment on above: Performed By: #### C BC ####[facility] PATHOLOGY [id number] [place], MCH (RBC) [Entitic mass] 29.8 pg Normal 26.0-34.0 [facility] Comment on above: Performed By: #### C BC ####[facility] PATHOLOGY [id number] [place], MCHC (RBC) [Mass/Vol] 32.8 g/dL Normal 32.0-35.9 [facility] Comment on above: Performed By: #### C BC ####[facility] PATHOLOGY [id number] [place], MCV (RBC) [Entitic vol] 91 fL Normal 80-100 [facility] Comment on above: Performed By: #### C BC ####[facility] PATHOLOGY [id number] [place], Platelet mean volume (Bld) [Entitic vol] 6.8 fL Low 7.5-11.2 [facility] Comment on above: Performed By: #### C BC ####[facility] PATHOLOGY [id number] [place], Platelets (Bld) [#/Vol] 282 10*3/uL Normal 150-400 [facility] Comment on above: Performed By: #### C BC ####S PATHOLOGY [id number] [place], RBC (Bld) [#/Vol] 2.95 10*6/uL Low 4.00-5.20 [facility] Comment on above: Performed By: #### C BC ####S PATHOLOGY [id number] [place], WBC (Bld) [#/Vol] 5.6 10*3/uL Normal 4.5-11.5 [facility] Comment on above: Performed By: #### C BC ####S PATHOLOGY [id number] [place], [place], Care Plan Noteon 08-18-2023 Client Account Assistant Authentication Interface Message Text Normal [facility] Consultson 08-18-2023 Client Account Assistant Authentication Interface Message Text Occupational Therapy Consult received. Patient currently on caseload. Will continue to follow per POC. Current recommendations are for SNF. Alexsander Lee OTR/Alex Normal [facility] MAGNESIUMon 08-18-2023 Magnesium [Mass/Vol] 1.7 mg/dL Low 1.9 - 2 .7 mg/dL [facility] Magnesium [Mass/Vol] 1.7 mg/dL Low 1.9-2.7 [facility] Comment on above: Performed By: #### Jr Red, PHOKimberly MG ####S PATHOLOGY [id number] [place], [place], No Panel Informationon 08-17 Interpretation and review of laboratory results Abnormal [facility] PHOSPHORUSon 08-18-2023 Phosphate [Mass/Vol] 2.0 mg/dL Low 2.5 - 5 .0 mg/dL [facility] Phosphate [Mass/Vol] 2.0 mg/dL Low 2.5-5.0 [facility] Comment on above: Performed By: #### Jr H8, PHOS, MG ####S PATHOLOGY [id number] [place], [place], Progress Noteson 08-18-2023 Client Account Assistant Authentication Interface Message Text Normal [facility] BASIC METABOLIC PANELon Anion gap [Moles/Vol] 8 mmol/L Low 10-20 [facility] Comment on above: Performed By: #### C H8 ####[facility] PATHOLOGY [id number] [place], Calcium [Mass/Vol] 8.1 mg/dL Low 8.6-10.[address] [facility] Comment on above: Performed By: #### C H8 ####[facility] PATHOLOGY [id number] [place], Chloride [Moles/Vol] 108 mmol/L High 98-[address] [facility] Comment on above: Performed By: #### C H8 ####[facility] PATHOLOGY [id number] [place], CO2 [Moles/Vol] 26 mmol/L Normal 21-31 [facility] Comment on above: Performed By: #### C H8 ####[facility] PATHOLOGY [id number] [place], Creatinine [Mass/Vol] 0.46 mg/dL Low 0.60-1.[address] [facility] Comment on above: Performed By: #### C H8 ####S PATHOLOGY [id number] [place], ESTIMATED GFR (CKD-EPI) 94 mL/min/1.73sqm Normal >=60 [facility] Comment on above: Result Comment: 2020 CKD EPI Equation using Creatinine without RaceComment: Estimated glomerular filtration rate (eGFR) is calculated without a race coefficient. Values should be interpreted in the context of the patient's full clinical presentation.Reference:1. Nestor C, Isabella M, Kaz FUENTES, et al.. A Unifying Approach for GFR Estimation: Recommendations of the NKF-ASN Task Force on Reassessing the Inclusion of Race in Diagnosing Kidney Disease. [place] Journal of Kidney Diseases 2021;79(2):268-88.e1.2. N Engl J Med 2020 Vol. 385 Issue 19 Pages 8257-1773 Performed By: #### C H8 ####[facility] PATHOLOGY [id number] [place], Glucose [Mass/Vol] 117 mg/dL High 74-109 [facility] Comment on above: Performed By: #### C H8 ####[facility] PATHOLOGY [id number] [place], Potassium [Moles/Vol] 4.2 mmol/L Normal 3.5-5.0 [facility] Comment on above: Performed By: #### C H8 ####[facility] PATHOLOGY [id number] [place], Sodium [Moles/Vol] 138 mmol/L Normal 136-145 [facility] Comment on above: Performed By: #### C H8 ####[facility] PATHOLOGY [id number] [place], Urea nitrogen [Mass/Vol] 20 mg/dL Normal 7-25 [facility] Comment on above: Performed By: #### C H8 ####[facility] PATHOLOGY [id number] [place], Anion gap [Moles/Vol] 10 mmol/L Normal 10-20 [facility] Comment on above: Performed By: #### ALFIE Yoo, PHOKimberly ####[facility] PATHOLOGY [id number] [place], Calcium [Mass/Vol] 8.3 mg/dL Low 8.6-10.3 [facility] Comment on above: Performed By: #### ALFIE Yoo, PHOS ####[facility] PATHOLOGY [id number] [place], Chloride [Moles/Vol] 106 mmol/L Normal 98-107 [facility] Comment on above: Performed By: #### ALFIE Yoo, PHOS ####[facility] PATHOLOGY [id number] [place], CO2 [Moles/Vol] 26 mmol/L Normal 21-31 [facility] Comment on above: Performed By: #### ALFIE Yoo, PHOS ####[facility] PATHOLOGY [id number] [place], Creatinine [Mass/Vol] 0.47 mg/dL Low 0.60-1.20 [facility] Comment on above: Performed By: #### ALFIE Yoo PHOS ####[facility] PATHOLOGY [id number] [place], ESTIMATED GFR (CKD-EPI) 94 mL/min/1.73sqm Normal >=60 [facility] Comment on above: Result Comment: 2020 CKD EPI Equation using Creatinine without RaceComment: Estimated glomerular filtration rate (eGFR) is calculated without a race coefficient. Values should be interpreted in the context of the patient's full clinical presentation.Reference:1. Nestor Norirs, Isabella M, Kaz FUENTES, et al.. A Unifying Approach for GFR Estimation: Recommendations of the NKF-ASN Task Force on Reassessing the Inclusion of Race in Diagnosing Kidney Disease. [place] Journal of Kidney Diseases 2021;79(2):268-88.e1.2. N Engl J Med 2020 Vol. 385 Issue 19 Pages 7760-3655 Performed By: #### ALFIE Yoo PHOS ####[facility] PATHOLOGY [id number] [place], Glucose [Mass/Vol] 113 mg/dL High 74-[address] [facility] Comment on above: Performed By: #### ALFIE Yoo PHOS ####[facility] PATHOLOGY [id number] [place], Potassium [Moles/Vol] 3.3 mmol/L Low 3.5-5.[address] [facility] Comment on above: Performed By: #### ALFIE Yoo PHOS ####[facility] PATHOLOGY [id number] [place], Sodium [Moles/Vol] 139 mmol/L Normal 136-[address] [facility] Comment on above: Performed By: #### ALFIE Yoo PHOS ####[facility] PATHOLOGY [id number] [place], Urea nitrogen [Mass/Vol] 15 mg/dL Normal 7-25 [facility] Comment on above: Performed By: #### ALFIE Yoo PHOS ####[facility] PATHOLOGY [id number] [place], Basic metabolic 2000 panelon 08-17-2023 Anion gap [Moles/Vol] 8 mmol/L Low 10 - 20 [facility] Calcium [Mass/Vol] 8.1 mg/dL Low 8.6 - 10. 3 mg/dL [facility] Chloride [Moles/Vol] 108 mmol/L High 98 - 10 7 mmol/L [facility] CO2 [Moles/Vol] 26 mmol/L 21 - 31 mmol/L [facility] Creatinine [Mass/Vol] 0.46 mg/dL Low 0.60 - 1.20 mg/dL [facility] GFR/1.73 sq M.predicted CKD-EPI (S/P/Bld) [Vol rate/Area] 94 - PINF [facility] Comment on above: 2020 CKD EPI Equatio n using Creatinine without Race Comment: Estimated glomerular filtration rate (eGFR) is calculated without a race coefficient. Values should be interpreted in the context of the patient's full clinical presentation. Reference: 1. Nestor C, Isabella M, Kaz FUENTES, et al.. A Unifying Approach for GFR Estimation: Recommendations of the NKF-ASN Task Force on Reassessing the Inclusion of Race in Diagnosing Kidney Disease. [place] Journal of Kidney Diseases 202;79(2):268-88.e1. 2. N Engl J Med 1 Vol. 385 Issue 19 Pages 2262-3011 Glucose [Mass/Vol] 117 mg/dL High 74 - 109 mg/dL [facility] Interpretation and review of laboratory results Abnormal [facility] Potassium [Moles/Vol] 4.2 mmol/L 3.5 - 5.0 mmol/L [facility] Sodium [Moles/Vol] 138 mmol/L 136 - 145 mmol/L [facility] Urea nitrogen [Mass/Vol] 20 mg/dL 7 - 25 mg/dL [facility] Anion gap [Moles/Vol] 10 mmol/L 10 - 20 [facility] Calcium [Mass/Vol] 8.3 mg/dL Low 8.6 - 10. 3 mg/dL [facility] Chloride [Moles/Vol] 106 mmol/L 98 - 10 7 mmol/L [facility] CO2 [Moles/Vol] 26 mmol/L 21 - 31 mmol/L [facility] Creatinine [Mass/Vol] 0.47 mg/dL Low 0.60 - 1.20 mg/dL [facility] GFR/1.73 sq M.predicted CKD-EPI (S/P/Bld) [Vol rate/Area] 94 - PINF [facility] Comment on above: 2020 CKD EPI Equatio n using Creatinine without Race Comment: Estimated glomerular filtration rate (eGFR) is calculated without a race coefficient. Values should be interpreted in the context of the patient's full clinical presentation. Reference: 1. Nestor C, Isabella M, Kaz FUENTES, et al.. A Unifying Approach for GFR Estimation: Recommendations of the NKF-ASN Task Force on Reassessing the Inclusion of Race in Diagnosing Kidney Disease. [place] Journal of Kidney Diseases 2021;79(2):268-88.e1. 2. N Engl J Med 2020 Vol. 385 Issue 19 Pages 0894-0206 Glucose [Mass/Vol] 113 mg/dL High 74 - 109 mg/dL [facility] Potassium [Moles/Vol] 3.3 mmol/L Low 3.5 - 5.0 mmol/L [facility] Sodium [Moles/Vol] 139 mmol/L 136 - 145 mmol/L [facility] Urea nitrogen [Mass/Vol] 15 mg/dL 7 - 25 mg/dL [facility] CBC panel Auto (Bld)on 08-16 Erythrocyte distribution width (RBC) [Ratio] 14.4 % 11.5 - 14.5 % [facility] Hematocrit (Bld) [Volume fraction] 26.4 % Low 36.0 - 46.0 % [facility] Hemoglobin (Bld) [Mass/Vol] 9.1 g/dL Low 12.0 - 15.0 g/dL [facility] Interpretation and review of laboratory results Abnormal [facility] MCH (RBC) [Entitic mass] 30.7 pg 26.0 - 34.0 pg [facility] MCHC (RBC) [Mass/Vol] 34.3 g/dL 32.0 - 35.9 g/dL [facility] MCV (RBC) [Entitic vol] 90 fL 80 - 100 fL [facility] Platelet mean volume (Bld) [Entitic vol] 6.8 fL Low 7.5 - 11.2 fL [facility] Platelets (Bld) [#/Vol] 278 10*3/uL 150 - 400 K/uL [facility] RBC (Bld) [#/Vol] 2.95 10*6/uL Low [facility] WBC (Bld) [#/Vol] 6.0 10*3/uL 4.5 - 11.5 K/uL [facility] COMPLETE BLOOD COUNTon 08-16 Erythrocyte distribution width (RBC) [Ratio] 14.4 % Normal 11.5-14.5 [facility] Comment on above: Performed By: #### C BC ####[facility] PATHOLOGY [id number] [place] [address], Hematocrit (Bld) [Volume fraction] 26.4 % Low 36.0-46.0 [facility] Comment on above: Performed By: #### C BC ####[facility] PATHOLOGY [id number] [place] [address], Hemoglobin (Bld) [Mass/Vol] 9.1 g/dL Low 12.0-15.0 [facility] Comment on above: Performed By: #### C BC ####[facility] PATHOLOGY [id number] [place] [address], MCH (RBC) [Entitic mass] 30.7 pg Normal 26.0-34.0 [facility] Comment on above: Performed By: #### C BC ####[facility] PATHOLOGY [id number] [place] [address], MCHC (RBC) [Mass/Vol] 34.3 g/dL Normal 32.0-35.9 [facility] Comment on above: Performed By: #### C BC ####[facility] PATHOLOGY [id number] [place] [address], MCV (RBC) [Entitic vol] 90 fL Normal 80-100 [facility] Comment on above: Performed By: #### C BC ####[facility] PATHOLOGY [id number] [place] [address], Platelet mean volume (Bld) [Entitic vol] 6.8 fL Low 7.5-11.2 [facility] Comment on above: Performed By: #### C BC ####[facility] PATHOLOGY [id number] [place] [address], Platelets (Bld) [#/Vol] 278 10*3/uL Normal 150-400 [facility] Comment on above: Performed By: #### C BC ####S PATHOLOGY [id number] [place], RBC (Bld) [#/Vol] 2.95 10*6/uL Low 4.00-5.20 [facility] Comment on above: Performed By: #### C BC ####[facility] PATHOLOGY [id number] [place], WBC (Bld) [#/Vol] 6.0 10*3/uL Normal 4.5-11.5 [facility] Comment on above: Performed By: #### C BC ####S PATHOLOGY [id number] [place], Care Plan Noteon 08-17-2023 Client Account Assistant Authentication Interface Message Text Normal [facility] [place] 08-17-2023 Client Account Assistant Authentication Interface Message Text Normal [facility] MAGNESIUMon 08-17-2023 Magnesium [Mass/Vol] 1.8 mg/dL Low 1.9 - 2 .7 mg/dL [facility] Magnesium [Mass/Vol] 1.8 mg/dL Low 1.9-2.7 [facility] Comment on above: Performed By: #### M ALFIE Arthur, ANNIES ####[facility] PATHOLOGY [id number] [place], [place], MR Brain WO contraston 08-16 EXAMINATION: MR HEAD W/O 08/17/2023 05:30 AM CLINICAL HISTORY: rule out stroke/aphasia ASSOCIATED DIAGNOSIS: rule out stroke/aphasia ORDERING PROVIDER: RONNIE JESUS [employer] NOTE: Best possible patient confused COMPARISON: CT HEAD W/O CONTRAST 08/14/2023, 11:05 PM TECHNIQUE: Patient questionnaire was completed, and was reviewed by MRI personnel prior to the patient entering the scanner. Multiplanar, multisequence MR imaging of the head was performed without intravenous contrast. FINDINGS: Follow-up case of left convexity subdural hematoma and postsurgical changes of left craniotomy and subsequent embolization of the left middle meningeal artery. There is a hemorrhagic fluid collection over the left convexity which shows pneumocephalus and hemorrhagic fluid. There is mild midline shift towards the right side. Tiny intraventricular hemorrhage is present. Few foci of hemorrhagic contusions are seen scattered in bilateral cerebral hemispheres on the GRE sequence. A small subdural hematoma is also seen over the left occipital convexity and along the tentorium. The craniovertebral junction and sella turcica are unremarkable. There are few foci of restricted diffusion in bilateral cerebral hemispheres. A punctate focus is seen in the simmons matter of the right parietal lobe near the vertex on image 6 of series 6. Another area is seen on image 10 of series 6 in the right parietal lobe. A punctate focus is seen in the left parietal lobe on image 13. 2 additional focus are seen in the right occipital lobe on image 16. These areas do not show hyperintensity on precontrast T1 or low signal intensity on the GRE sequence. These foci are likely due to acute infarcts and may be embolic. Possibility of these foci due to diffuse axonal injury is unlikely. Chronic Change: Moderate chronic small vessel ischemic changes are present. 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 Hemorrhagic fluid collection over the left convexity because of postsurgical changes of left subdural hematoma evacuation. Other findings as described above. MACRO: None RADIOLOGY Antonio Cisneros MD - 08/17/2023 EXAMINATION: MR HEAD W/O 08/17/2023 05:30 AM CLINICAL HISTORY: rule out stroke/aphasia ASSOCIATED DIAGNOSIS: rule out stroke/aphasia ORDERING PROVIDER: RONNIE JESUS [employer] NOTE: Best possible patient confused COMPARISON: CT HEAD W/O CONTRAST 08/14/2023, 11:05 PM TECHNIQUE: Patient questionnaire was completed, and was reviewed by MRI personnel prior to the patient entering the scanner. Multiplanar, multisequence MR imaging of the head was performed without intravenous contrast. FINDINGS: Follow-up case of left convexity subdural hematoma and postsurgical changes of left craniotomy and subsequent embolization of the left middle meningeal artery. There is a hemorrhagic fluid collection over the left convexity which shows pneumocephalus and hemorrhagic fluid. There is mild midline shift towards the right side. Tiny intraventricular hemorrhage is present. Few foci of hemorrhagic contusions are seen scattered in bilateral cerebral hemispheres on the GRE sequence. A small subdural hematoma is also seen over the left occipital convexity and along the tentorium. The craniovertebral junction and sella turcica are unremarkable. There are few foci of restricted diffusion in bilateral cerebral hemispheres. A punctate focus is seen in the simmons matter of the right parietal lobe near the vertex on image 6 of series 6. Another area is seen on image 10 of series 6 in the right parietal lobe. A punctate focus is seen in the left parietal lobe on image 13. 2 additional focus are seen in the right occipital lobe on image 16. These areas do not show hyperintensity on precontrast T1 or low signal intensity on the GRE sequence. These foci are likely due to acute infarcts and may be embolic. Possibility of these foci due to diffuse axonal injury is unlikely. Chronic Change: Moderate chronic small vessel ischemic changes are present. 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 Hemorrhagic fluid collection over the left convexity because of postsurgical changes of left subdural hematoma evacuation. Other findings as described above. MACRO: None [facility] Radiology Study observation (narrative) [facility] Brain WO contrastOrdered By: Antonio Cisneros on 08-17-[address] [facility] Work Phone: MR HEAD W/Oon 08-17-2023 MR HEAD W/O Normal [facility] [employer] [facility] No Panel Informationon 08-16 Interpretation and review of laboratory results Abnormal [facility] [employer] PHOSPHORUSon 08-17-2023 Phosphate [Mass/Vol] 2.2 mg/dL Low 2.5 - 5 .0 mg/dL [facility] Phosphate [Mass/Vol] 2.2 mg/dL Low 2.5-5.[address] [facility] Comment on above: Performed By: #### M G, CH8, PHOS ####[facility] PATHOLOGY [id number] [place], [address] Progress Noteson 08-17-2023 Client Account Assistant Authentication Interface Message Text Normal [facility] Client Account Assistant Authentication Interface Message Text Normal [facility] Client Account Assistant Authentication Interface Message Text Normal [facility] Client Account Assistant Authentication Interface Message Text Normal [facility] BASIC METABOLIC PANELon Anion gap [Moles/Vol] 11 mmol/L Normal 10-20 [facility] Comment on above: Performed By: #### Brittany Arthur, CH8 ####S PATHOLOGY [id number] [place], Calcium [Mass/Vol] 8.2 mg/dL Low 8.6-10.[address] [facility] Comment on above: Performed By: #### Brittany Arthur, CH8 ####S PATHOLOGY [id number] [place], Chloride [Moles/Vol] 103 mmol/L Normal 98-107 [facility] Comment on above: Performed By: #### Brittany Arthur, CH8 ####S PATHOLOGY [id number] [place], CO2 [Moles/Vol] 25 mmol/L Normal 21-31 [facility] Comment on above: Performed By: #### Brittany Arthur, CH8 ####S PATHOLOGY [id number] [place], Creatinine [Mass/Vol] 0.48 mg/dL Low 0.60-1.[address] [facility] Comment on above: Performed By: #### Brittany Arthur, CH8 ####[facility] PATHOLOGY [id number] [place], ESTIMATED GFR (CKD-EPI) 93 mL/min/1.73sqm Normal >=60 [facility] Comment on above: Result Comment: 2020 CKD EPI Equation using Creatinine without RaceComment: Estimated glomerular filtration rate (eGFR) is calculated without a race coefficient. Values should be interpreted in the context of the patient's full clinical presentation.Reference:1. Nestor C, Isabella M, Kaz FUENTES, et al.. A Unifying Approach for GFR Estimation: Recommendations of the NKF-ASN Task Force on Reassessing the Inclusion of Race in Diagnosing Kidney Disease. [place] Journal of Kidney Diseases 2021;79(2):268-88.e1.2. N Engl J Med 2020 Vol. 385 Issue 19 Pages 8713-2920 Performed By: #### Brittany Arthur, CH8 ####S PATHOLOGY [id number] [place], Glucose [Mass/Vol] 114 mg/dL High 74-109 [facility] Comment on above: Performed By: #### ALFIE Yoo ####[facility] PATHOLOGY [id number] [place], Potassium [Moles/Vol] 3.5 mmol/L Normal 3.5-5.0 [facility] Comment on above: Performed By: #### ALFIE Yoo ####[facility] PATHOLOGY [id number] [place], Sodium [Moles/Vol] 135 mmol/L Low 136-145 [facility] Comment on above: Performed By: #### ALFIE Yoo ####[facility] PATHOLOGY [id number] [place], Urea nitrogen [Mass/Vol] 13 mg/dL Normal 7-25 [facility] Comment on above: Performed By: #### ALFIE Yoo ####S PATHOLOGY [id number] [place], Anion gap [Moles/Vol] 11 mmol/L Normal 10-20 [facility] Comment on above: Performed By: #### ALFIE Yoo, CHASE ####S PATHOLOGY [id number] [place], Calcium [Mass/Vol] 8.0 mg/dL Low 8.6-10.3 [facility] Comment on above: Performed By: #### ALFIE Yoo, ANNIES ####[facility] PATHOLOGY [id number] [place], Chloride [Moles/Vol] 106 mmol/L Normal 98-107 [facility] Comment on above: Performed By: #### ALFIE Yoo, PHOS ####[facility] PATHOLOGY [id number] [place], CO2 [Moles/Vol] 24 mmol/L Normal 21-31 [facility] Comment on above: Performed By: #### ALFIE Yoo, PHOS ####[facility] PATHOLOGY [id number] [place], Creatinine [Mass/Vol] 0.48 mg/dL Low 0.60-1.20 [facility] Comment on above: Performed By: #### ALFIE Yoo PHOS ####[facility] PATHOLOGY [id number] [place], ESTIMATED GFR (CKD-EPI) 93 mL/min/1.73sqm Normal >=60 [facility] Comment on above: Result Comment: 2020 CKD EPI Equation using Creatinine without RaceComment: Estimated glomerular filtration rate (eGFR) is calculated without a race coefficient. Values should be interpreted in the context of the patient's full clinical presentation.Reference:1. Nestor C, Isabella M, Kaz DC, et al.. A Unifying Approach for GFR Estimation: Recommendations of the NKF-ASN Task Force on Reassessing the Inclusion of Race in Diagnosing Kidney Disease. [place] Journal of Kidney Diseases 2021;79(2):268-88.e1.2. N Engl J Med 1 Vol. 385 Issue 19 Pages 7516-8731 Performed By: #### ALFIE Yoo PHOS ####[facility] PATHOLOGY [id number] [place], Glucose [Mass/Vol] 93 mg/dL Normal 74-109 [facility] Comment on above: Performed By: #### ALFIE Yoo PHOS ####[facility] PATHOLOGY [id number] [place], Potassium [Moles/Vol] 3.6 mmol/L Normal 3.5-5.0 [facility] Comment on above: Performed By: #### ALFIE Yoo PHOS ####[facility] PATHOLOGY [id number] [place], Sodium [Moles/Vol] 137 mmol/L Normal 136-145 [facility] Comment on above: Performed By: #### ALFIE Yoo, PHOS ####[facility] PATHOLOGY [id number] [place], Urea nitrogen [Mass/Vol] 13 mg/dL Normal 7-25 [facility] Comment on above: Performed By: #### ALFIE Yoo PHOS ####[facility] PATHOLOGY [id number] [place], [address] Basic metabolic 2000 panelon 08-16-2023 Anion gap [Moles/Vol] 11 mmol/L 10 - 20 [facility] Calcium [Mass/Vol] 8.2 mg/dL Low 8.6 - 10. 3 mg/dL [facility] Chloride [Moles/Vol] 103 mmol/L 98 - 10 7 mmol/L [facility] CO2 [Moles/Vol] 25 mmol/L 21 - 31 mmol/L [facility] Creatinine [Mass/Vol] 0.48 mg/dL Low 0.60 - 1.20 mg/dL [facility] GFR/1.73 sq M.predicted CKD-EPI (S/P/Bld) [Vol rate/Area] 93 - PINF [facility] Comment on above: 2020 CKD EPI Equatio n using Creatinine without Race Comment: Estimated glomerular filtration rate (eGFR) is calculated without a race coefficient. Values should be interpreted in the context of the patient's full clinical presentation. Reference: 1. Nestor C, Isabella M, Kaz FUENTES, et al.. A Unifying Approach for GFR Estimation: Recommendations of the NKF-ASN Task Force on Reassessing the Inclusion of Race in Diagnosing Kidney Disease. [place] Journal of Kidney Diseases 202;79(2):268-88.e1. 2. N Engl J Med 2020 Vol. 385 Issue 19 Pages 1334-4901 Glucose [Mass/Vol] 114 mg/dL High 74 - 109 mg/dL [facility] Interpretation and review of laboratory results Abnormal [facility] Potassium [Moles/Vol] 3.5 mmol/L 3.5 - 5.0 mmol/L [facility] Sodium [Moles/Vol] 135 mmol/L Low 136 - 145 mmol/L [facility] Urea nitrogen [Mass/Vol] 13 mg/dL 7 - 25 mg/dL [facility] Anion gap [Moles/Vol] 11 mmol/L 10 - 20 [facility] Calcium [Mass/Vol] 8.0 mg/dL Low 8.6 - 10. 3 mg/dL [facility] Chloride [Moles/Vol] 106 mmol/L 98 - 10 7 mmol/L [facility] CO2 [Moles/Vol] 24 mmol/L 21 - 31 mmol/L [facility] Creatinine [Mass/Vol] 0.48 mg/dL Low 0.60 - 1.20 mg/dL [facility] GFR/1.73 sq M.predicted CKD-EPI (S/P/Bld) [Vol rate/Area] 93 - PINF [facility] Comment on above: 2020 CKD EPI Equatio n using Creatinine without Race Comment: Estimated glomerular filtration rate (eGFR) is calculated without a race coefficient. Values should be interpreted in the context of the patient's full clinical presentation. Reference: 1. Nestor C, Isabella M, Kaz FUENTES, et al.. A Unifying Approach for GFR Estimation: Recommendations of the NKF-ASN Task Force on Reassessing the Inclusion of Race in Diagnosing Kidney Disease. [place] Journal of Kidney Diseases 2021;79(2):268-88.e1. 2. N Engl J Med 2020 Vol. 385 Issue 19 Pages 2277-4205 Glucose [Mass/Vol] 93 mg/dL 74 - 109 mg/dL [facility] Potassium [Moles/Vol] 3.6 mmol/L 3.5 - 5.0 mmol/L [facility] Sodium [Moles/Vol] 137 mmol/L 136 - 145 mmol/L [facility] Urea nitrogen [Mass/Vol] 13 mg/dL 7 - 25 mg/dL [facility] CBC panel Auto (Bld)on 08-15 Erythrocyte distribution width (RBC) [Ratio] 14.6 % High 11.5 - 14.5 % [facility] Hematocrit (Bld) [Volume fraction] 26.9 % Low 36.0 - 46.0 % [facility] Hemoglobin (Bld) [Mass/Vol] 9.0 g/dL Low 12.0 - 15.0 g/dL [facility] Interpretation and review of laboratory results Abnormal [facility] MCH (RBC) [Entitic mass] 30.2 pg 26.0 - 34.0 pg [facility] MCHC (RBC) [Mass/Vol] 33.3 g/dL 32.0 - 35.9 g/dL [facility] MCV (RBC) [Entitic vol] 91 fL 80 - 100 fL [facility] Platelet mean volume (Bld) [Entitic vol] 6.7 fL Low 7.5 - 11.2 fL [facility] Platelets (Bld) [#/Vol] 300 10*3/uL 150 - 400 K/uL [facility] RBC (Bld) [#/Vol] 2.97 10*6/uL Low [facility] WBC (Bld) [#/Vol] 7.4 10*3/uL 4.5 - 11.5 K/uL [facility] COMPLETE BLOOD COUNTon 08-15 Erythrocyte distribution width (RBC) [Ratio] 14.6 % High 11.5-14.5 [facility] Comment on above: Performed By: #### C BC ####[facility] PATH[facility] [id number] [place] [address], Hematocrit (Bld) [Volume fraction] 26.9 % Low 36.0-46.0 [facility] Comment on above: Performed By: #### C BC ####[facility] [id number] [place] [address], Hemoglobin (Bld) [Mass/Vol] 9.0 g/dL Low 12.0-15.0 [facility] Comment on above: Performed By: #### C BC ####[facility] [id number] [place] [address], MCH (RBC) [Entitic mass] 30.2 pg Normal 26.0-34.0 [facility] Comment on above: Performed By: #### C BC ####[facility] [id number] [place] [address], MCHC (RBC) [Mass/Vol] 33.3 g/dL Normal 32.0-35.9 [facility] Comment on above: Performed By: #### C BC ####[facility] PATH[facility] [id number] [place] [address], MCV (RBC) [Entitic vol] 91 fL Normal 80-100 [facility] Comment on above: Performed By: #### C BC ####[facility] [id number] [place], [place], Platelet mean volume (Bld) [Entitic vol] 6.7 fL Low 7.5-11.2 [facility] Comment on above: Performed By: #### C BC ####[facility] [id number] [place], [place], Platelets (Bld) [#/Vol] 300 10*3/uL Normal 150-400 [facility] Comment on above: Performed By: #### C BC ####S PATHOLOGY [id number] [place], [place], RBC (Bld) [#/Vol] 2.97 10*6/uL Low 4.00-5.20 [facility] Comment on above: Performed By: #### C BC ####[facility] [id number] [place], [place], WBC (Bld) [#/Vol] 7.4 10*3/uL Normal 4.5-11.5 [facility] Comment on above: Performed By: #### C BC ####[facility] [id number] [place], [place], Care Plan Noteon 08-16-2023 Client Account Assistant Authentication Interface Message Text Normal [facility] Consultson 08-16-2023 Client Account Assistant Authentication Interface Message Text Normal [facility] Client Account Assistant Authentication Interface Message Text TICU OT Attempted OT visit Patient not medically appropriate per discussion with RN. Will re-attempt at next available opportunity. Aurea MOE, OTR/L Pager: [phone] Secure chat preferred Normal [facility] Client Account Assistant Authentication Interface Message Text Normal [facility] EEG study reporton 4 This LTM vEEG (12-26 hours), performed on a patient in the awake and confused state, was ABNORMAL. The following pertinent findings were noted: 1. Continuous slow, generalized. Delta. 80% of the record 2. Asymmetry, focal slowing left hemisphere Clinical Correlation: These findings indicate severe encephalopathy/diffuse cortical dysfunction, focal cortical dysfunction of the left hemisphere, No epileptiform discharges or electrographic or clinical seizures were captured. Prior LTM reports Summary: In comparison to previous reports this report showed n/a Abbreviations used in this report: FIRDA = Frontal Intermittent Rhythmic Delta Activity OIRDA = Occipital Intermittent Rhythmic Delta Activity LIRDA = Lateralized Intermittent Rhythmic Delta Activity SIRPIDs = Stimulus Induced Rhythmic, Periodic, or Ictal Discharges LPD = Lateralized Periodic discharges (aka PLEDs) GPD = Generalized Periodic Discharges (aka GPEDs) BIRDs = Brief (potentially) Ictal Rhythmic Discharges meat carver: Denis Ellis, JOSI Attending Physician(s): Minoo Yuan [facility] Table formatting fro m the original result was not included. [facility] Inpatient Neurophysiology [address] [address] [facility] [id number] Patient Name: Carly Marcelino : 1940 Location of Recording: [facility] Main Referring Provider: Luis Barbosa MD EEG Type: LTM vEEG (12-26 hours) EEG number: [id number] EEG End Date of Study: 08/16/23 EEG Start Time: 1244 EEG End Time: 1407 Main Diagnosis: aphasia Medical History: There is no previous medical history on file. Surgical History: Review of patient's past surgical history indicates: KATTY HOLES, HEMATOMA EVACUATION (08/14/2023) Procedure: KATTY HOLES x2, HEMATOMA EVACUATION; Surgeon: Artem Li MD; Location: PERIOPERATIVE SERVICES; Service: Neurosurgery EEG Indications: The purpose of the study was to evaluate for seizures or non-convulsive status epilepticus. Medications: No current facility-administered medications for this visit. No current outpatient medications on file. Facility-Administered Medications Ordered in Other Visits Medication Dose Route Frequency Last Rate Last Admin magnesium sulfate 2 GM/50ML in 50 mL ivpb 2,000 mg Intravenous One Time Dose sodium chloride 0.9 % iv infusion Intravenous Continuous 75 mL/hr at 08/16/23 1049 New Bag at 08/16/23 1049 levETIRAcetam in NaCl 0.82% 100mL (KEPPRA) ivpb 500 mg 100 mL 500 mg Intravenous Every 12 hours 400 mL/hr at 08/16/23 0047 500 mg at 08/16/23 0047 lisinopril (ZESTRIL) tablet 2.5 mg Oral Daily 2.5 mg at 08/16/23 1255 losartan (COZAAR) tablet 50 mg Oral Daily 50 mg at 08/16/23 1255 labetalol (TRANDATE) 5 mg/mL injection 10 mg Intravenous Push Q6H PRN 10 mg at 08/15/23 1559 albuterol (PROVENTIL HFA) 108 (90 Base) MCG/ACT HFA inhaler 2 Puff Inhalation Q4H PRN atorvastatin (LIPITOR) tablet 40 mg Oral At Bedtime 40 mg at 08/15/23 2158 acetaminophen (TYLENOL) tablet 650 mg Oral Q4H PRN 650 mg at 08/16/23 1308 senna (SENOKOT) tablet 8.6 mg Oral At Bedtime 8.6 mg at 08/15/23 2158 bisacodyl (DULCOLAX) 5 MG enteric coated tablet 10 mg Oral Daily PRN Methods: This recording was performed on [employer] EEG equipment digitizing at 512 Hz. Filters were adjustable, applied as needed after recording. EEG data was re-montaged using digital EEG review software as needed. DETAILS Artifact included: eye Artifact severity was mild. Artifact did not significantly degrade data quality. Background: The electrographic background was continuous, asymmetric with left greater than right hemispheric slowing, and was characterized by a normal 9 Hz posterior dominant rhythm. Organization was fair, with anterior dominance and/or excess slower frequencies, and reactive. Predominant frequencies were in the delta range. Sleep: State changes were seen, but no normal sleep architecture was identified.. Focal slowing abnormalities: Continuous left Epileptiform abnormalities: None. Other Paroxysmal Non-Epileptiform Findings: None. Events: There were no seizures or events captured. Activation procedures: Hyperventilation: Deferred. Stepped photic stimulation: Deferred. EKG rate: Normal Note that EKG review included only samples of a 1 channel rhythm strip (selected at random and during any EEG or clinical events). This data is not adequate for characterizing or excluding cardiac arrhythmia. [facility] EEG study reportOrdered By: Emmanuel Yuan on 08-16-2023 [facility] Phone: IP EEGon 08-16-2023 IP EEG Normal [facility] MAGNESIUMon 08-16-2023 Interpretation and review of laboratory results Normal [facility] Magnesium [Mass/Vol] 2.0 mg/dL 1.9 - 2 .7 mg/dL [facility] Magnesium [Mass/Vol] 2.0 mg/dL Normal 1.9-2.7 [facility] Comment on above: Performed By: #### M Sandhya, 8 ####[facility] [id number] [place], [address] Magnesium [Mass/Vol] 1.6 mg/dL Low 1.9 - 2 .7 mg/dL [facility] Magnesium [Mass/Vol] 1.6 mg/dL Low 1.9-2.7 [facility] Comment on above: Performed By: #### M ALFIE Arthur PHOS ####[facility] [id number] [place], [address] No Panel Informationon 08-15 EXAMINATION: XA EMBO L INTRACRAN OR SPINAL C (MICHELLE), XA EXISTING CATHETER (MICHELLE), XA LT COMMON CAROTID HEAD (MICHELLE) CLINICAL HISTORY: Rad Procedure required: = L MMA embolization,L [facility] TECHNOLOGISTS NOTE: Moderate sedation intraservice start: 1514- 1553 end; puncture 1514 (accession [id number]), Moderate sedation intraservice start: Moderate sedation intraservice start: 1514- 1553 end; puncture 1514 (accession [id number]), Moderate sedation intraservice start: Moderate sedation intraservice start: 1514- 1553 end; puncture 1514 (accession [id number]) FLUOROSCOPIST: ROYCE CASAREZ TIME: 18.1 Minutes INTRA-PROCEDURE MEDS: iohexol (OMNIPAQUE) 350 MG/ML injection 80 mL Route: Other SEDATION TIME Start time: 1514 hours Stop time: 1553 hours Total moderate sedation time of 39 minutes. INFORMED CONSENT: Written informed consent was obtained. The procedure, risks, benefits, and alternatives were discussed. All questions were answered. TIMEOUT: Physician led timeout was conducted documenting correct patient, procedure, site, fire risk, antibiotics and allergies. COMPLICATIONS: None ESTIMATED BLOOD LOSS: Less than 10 mL TECHNIQUE: The patient was placed on the angiographic table in the supine position. The Right groin was prepped and draped in the usual aseptic fashion. Lidocaine was used for local anesthesia. A micropuncture kit was used to gain access to the Right common femoral artery. A 0.035 inch Bentson guidewire was passed through the micropuncture sheath, and the sheath was removed. A 5F short sheath was placed over its matched dilator over the wire. The dilator was removed. A 5 Estonian Berenstein catheter, a 5 Estonian Hernandez 2 catheter a Bentson wire and 0.035 inch glidewire were used to select the innominate artery were 1 injection was performed, aortic arch just proximal to the left subclavian artery origin were one injection was performed, and left common carotid artery where one injection was performed, imaging over the head and neck. A Renegade microcatheter was advanced over an Carlitos 14 microwire into the left middle meningeal artery. A single microcatheter injection was performed. The left middle meningeal artery was then embolized with Avitene slurry and multiple tornado fibered microcoils. After placement of the final coil a single microcatheter injection was performed. The microcatheter was removed. A single left external carotid artery injection was performed through the Berenstein catheter. The catheter was retracted into the right external iliac artery and a single injection was performed. The catheter was removed over the Bentson wire. Satisfactory hemostasis was obtained at the right groin using an AngioSeal device. The patient tolerated the procedure well without immediate complication and was transferred from the angiography suite in stable condition. FINDINGS: Comparison made to CTA of the head from 08/14/2023. Innominate artery injection with DSA over the aortic arch demonstrates bovine arch anatomy. The left common carotid artery is tortuous with a 360 degree loop proximally. Aortic arch injection just proximal to the left subclavian artery origin demonstrates no high-grade narrowing of the subclavian artery origin. There is at least mild narrowing of the origin of left vertebral artery, although this is not well evaluated due to patient motion and suboptimal contrast opacification. The distal left subclavian artery is widely patent. Left common carotid artery injection with DSA over the neck shows the left common carotid artery to be normal. The origin of the left internal carotid artery is widely patent. There is segmental irregularity of the cervical left internal carotid artery consistent with fibromuscular dysplasia. No significant stenosis. The left external carotid artery is normal. Left middle meningeal artery injection with DSA over the head demonstrates the middle meningeal artery to be normal. 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 Right external iliac artery injection, imaging over the pelvis, fails to show contraindication to the use of angioseal. IMPRESSION: The left middle meningeal artery was embolized with collagen slurry and fibered microcoils. MACRO: None RADIOLOGY Royce Casarez M D - 08/16/2023 EXAMINATION: XA EMBOL INTRACRAN OR SPINAL C (MICHELLE), XA EXISTING CATHETER (MICHELLE), XA LT COMMON CAROTID HEAD (MICHELLE) CLINICAL HISTORY: Rad Procedure required: = L MMA embolization,L [facility] TECHNOLOGISTS NOTE: Moderate sedation intraservice start: 1514- 1553 end; puncture 1514 (accession [id number]), Moderate sedation intraservice start: Moderate sedation intraservice start: 1514- 1553 end; puncture 1514 (accession [id number]), Moderate sedation intraservice start: Moderate sedation intraservice start: 1514- 1553 end; puncture 1514 (accession [id number]) FLUOROSCOPIST: ROYCE CASAREZ TIME: 18.1 Minutes INTRA-PROCEDURE MEDS: iohexol (OMNIPAQUE) 350 MG/ML injection 80 mL Route: Other SEDATION TIME Start time: 1514 hours Stop time: 1553 hours Total moderate sedation time of 39 minutes. INFORMED CONSENT: Written informed consent was obtained. The procedure, risks, benefits, and alternatives were discussed. All questions were answered. TIMEOUT: Physician led timeout was conducted documenting correct patient, procedure, site, fire risk, antibiotics and allergies. COMPLICATIONS: None ESTIMATED BLOOD LOSS: Less than 10 mL TECHNIQUE: The patient was placed on the angiographic table in the supine position. The Right groin was prepped and draped in the usual aseptic fashion. Lidocaine was used for local anesthesia. A micropuncture kit was used to gain access to the Right common femoral artery. A 0.035 inch Bentson guidewire was passed through the micropuncture sheath, and the sheath was removed. A 5F short sheath was placed over its matched dilator over the wire. The dilator was removed. A 5 Estonian Berenstein catheter, a 5 Estonian Hernandez 2 catheter a Bentson wire and 0.035 inch glidewire were used to select the innominate artery were 1 injection was performed, aortic arch just proximal to the left subclavian artery origin were one injection was performed, and left common carotid artery where one injection was performed, imaging over the head and neck. A Renegade microcatheter was advanced over an Carlitos 14 microwire into the left middle meningeal artery. A single microcatheter injection was performed. The left middle meningeal artery was then embolized with Avitene slurry and multiple tornado fibered microcoils. After placement of the final coil a single microcatheter injection was performed. The microcatheter was removed. A single left external carotid artery injection was performed through the Berenstein catheter. The catheter was retracted into the right external iliac artery and a single injection was performed. The catheter was removed over the Bentson wire. Satisfactory hemostasis was obtained at the right groin using an AngioSeal device. The patient tolerated the procedure well without immediate complication and was transferred from the angiography suite in stable condition. FINDINGS: Comparison made to CTA of the head from 08/14/2023. Innominate artery injection with DSA over the aortic arch demonstrates bovine arch anatomy. The left common carotid artery is tortuous with a 360 degree loop proximally. Aortic arch injection just proximal to the left subclavian artery origin demonstrates no high-grade narrowing of the subclavian artery origin. There is at least mild narrowing of the origin of left vertebral artery, although this is not well evaluated due to patient motion and suboptimal contrast opacification. The distal left subclavian artery is widely patent. Left common carotid artery injection with DSA over the neck shows the left common carotid artery to be normal. The origin of the left internal carotid artery is widely patent. There is segmental irregularity of the cervical left internal carotid artery consistent with fibromuscular dysplasia. No significant stenosis. The left external carotid artery is normal. Left middle meningeal artery injection with DSA over the head demonstrates the middle meningeal artery to be normal. 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 Right external iliac artery injection, imaging over the pelvis, fails to show contraindication to the use of angioseal. IMPRESSION: The left middle meningeal artery was embolized with collagen slurry and fibered microcoils. MACRO: None [facility] Radiology Study observation (narrative) [facility] Interpretation and review of laboratory results Abnormal [facility] PHOSPHORUSon 08-16-2023 Interpretation and review of laboratory results [facility] Phosphate [Mass/Vol] 2.7 mg/dL 2.5 - 5 .0 mg/dL [facility] Phosphate [Mass/Vol] 2.7 mg/dL Normal 2.5-5.[address] [facility] Comment on above: Performed By: #### M G, CH8, PHOS ####[facility] [id number] [place], [address] Procedureson 08-16-2023 Client Account Assistant Authentication Interface Message Text Normal [facility] Progress Noteson 08-16-2023 Client Account Assistant Authentication Interface Message Text Normal [facility] Client Account Assistant Authentication Interface Message Text Normal [facility] Client Account Assistant Authentication Interface Message Text Normal [facility] Student Noteon 08-16-2023 Client Account Assistant Authentication Interface Message Text Normal [facility] XA EMBOL INTRACRAN OR SPINAL C (MICHELLE)on 08-16-2023 XA EMBOL INTRACRAN OR SPINAL C (MICHELLE) Normal [facility] XA EXISTING CATHETER (MICHELLE)on 08-16-2023 XA EXISTING CATHETER (MICHELLE) Normal [facility] XA LT COMMON CAROTID HEAD (R OO)on 08-16-2023 XA LT COMMON CAROTID HEAD (MICHELLE) Normal [facility] XR ABDOMEN AP 1 VIEWon 08-15 XR ABDOMEN AP 1 VIEW Normal [facility] XR ABDOMEN AP 1 VIEW Normal [facility] XR ABDOMEN AP 1 VIEW Normal [facility] XR Abdomen APon 08-16-2023 EXAMINATION: XR ABDO MEN AP 1 VIEW 08/16/2023 12:53 PM CLINICAL HISTORY: Step 2 of Corpak 2 Step process ASSOCIATED DIAGNOSIS: ORDERING PROVIDER: RONNIE JESUS TECHNOLOGISTS NOTE: COMPARISON: XR ABDOMEN AP 1 VIEW 08/16/2023, 10:34 AM FINDINGS: Limited study for enteral feeding tube placement. Enteral feeding tube which is coiled and terminates overlying the mid gastric body region. Intestinal gas pattern: Nonobstructive. Peritoneum: No pneumoperitoneum. Calcifications: Atherosclerotic calcification of the aorta. Osseous structures: Osteophytic endplate spurring and bridging of multiple thoracic and lumbar vertebra and narrowing of the L4-5 intervertebral disc space. Included lower chest: Grossly clear lung bases. Chest and abdominal wall: Telemetry leads overlying the lower chest and upper abdomen. IMPRESSION: 1. Enteral feeding tube which is coiled and terminates overlying the mid gastric body region. This should be advanced into the duodenum for optimal position. 2. Nonobstructive intestinal gas pattern. MACRO: None RADIOLOGY Mercedes Castro, DO - 08/16/2023 EXAMINATION: XR ABDOMEN AP 1 VIEW 08/16/2023 12:53 PM CLINICAL HISTORY: Step 2 of Corpak 2 Step process ASSOCIATED DIAGNOSIS: ORDERING PROVIDER: RONNIE JESUS TECHNOLOGISTS NOTE: COMPARISON: XR ABDOMEN AP 1 VIEW 08/16/2023, 10:34 AM FINDINGS: Limited study for enteral feeding tube placement. Enteral feeding tube which is coiled and terminates overlying the mid gastric body region. Intestinal gas pattern: Nonobstructive. Peritoneum: No pneumoperitoneum. Calcifications: Atherosclerotic calcification of the aorta. Osseous structures: Osteophytic endplate spurring and bridging of multiple thoracic and lumbar vertebra and narrowing of the L4-5 intervertebral disc space. Included lower chest: Grossly clear lung bases. Chest and abdominal wall: Telemetry leads overlying the lower chest and upper abdomen. IMPRESSION: 1. Enteral feeding tube which is coiled and terminates overlying the mid gastric body region. This should be advanced into the duodenum for optimal position. 2. Nonobstructive intestinal gas pattern. MACRO: None [facility] Radiology Study observation (narrative) [facility] EXAMINATION: XR ABDO MEN AP 1 VIEW 08/16/2023 10:28 AM CLINICAL HISTORY: evaluate line ASSOCIATED DIAGNOSIS: ORDERING PROVIDER[facility]: COMPARISON: XR ABDOMEN AP 1 VIEW 08/16/2023, 10:31 AM FINDINGS: IMPRESSION: Corpak is at the junction of the body and fundus, slightly more distal than it was on the prior study. MACRO: None RADIOLOGY Artem Grace MD - 08/16/2023 EXAMINATION: XR ABDOMEN AP 1 VIEW 08/16/2023 10:28 AM CLINICAL HISTORY: evaluate line ASSOCIATED DIAGNOSIS: ORDERING PROVIDER: [facility] TECH[facility]OLOG[facility]: COMPARISON: XR ABDOMEN AP 1 VIEW 08/16/2023, 10:31 AM FINDINGS: IMPRESSION: Corpak is at the junction of the body and fundus, slightly more distal than it was on the prior study. MACRO: None [facility] EXAMINATION: XR ABDO MEN AP 1 VIEW 08/16/2023 10:21 AM CLINICAL HISTORY: Step 2 of Corpak 2 Step process ASSOCIATED DIAGNOSIS: ORDERING PROVIDER: [facility] TECHNOLOGISTS [facility]: COMPARISON: CT BODY IMAGE IMPORT(MICHELLE) 07/29/2023, 11:50 AM FINDINGS: IMPRESSION: Corpak is in the stomach-at the junction of the body and fundus MACRO: None RADIOLOGY Artem Grace MD - 08/16/2023 EXAMINATION: XR ABDOMEN AP 1 VIEW 08/16/2023 10:21 AM CLINICAL HISTORY: Step 2 of Corpak 2 Step process ASSOCIATED DIAGNOSIS: [facility]ING PROVIDER[facility]: COMPARISON: CT BODY IMAGE IMPORT(MICHELLE) 07/29/2023, 11:50 AM FINDINGS: IMPRESSION: Corpak is in the stomach-at the junction of the body and fundus MACRO: None [facility] [employer] Radiology Study observation (narrative) [facility] XR CHEST AP OR PA 1 VIEWon 0 08-16-2023 XR CHEST AP OR PA 1 VIEW Normal [facility] XR CHEST AP OR PA 1 VIEW Normal [facility] XR CHEST AP OR PA 1 VIEW Normal [facility] XR Chest Single viewon 08-15 EXAMINATION: XR CHES T AP OR PA 1 VIEW 08/16/2023 12:48 PM CLINICAL HISTORY: Feeding tube assessment ASSOCIATED DIAGNOSIS: Feeding tube assessment ORDERING PROVIDER: [facility]: COMPARISON: XR CHEST AP OR PA 1 VIEW 08/16/2023, 10:33 AM FINDINGS: Position and projection: AP erect. Limitations: Mild rotation towards the right. Clinical considerations: Obtained from EMR. Lines, tubes, and devices: Enteral feeding tube terminates overlying the region of the thoracic esophagus, just below the level of the kt. Cardiomediastinal silhouette: Normal heart size. Aorta: Atherosclerotic calcification. Lungs and pleura: Mild scattered lower left pulmonary subsegmental atelectasis. No pulmonary consolidation, pleural effusion or pneumothorax. Osseous structures: Osteopenia, bilateral reverse total shoulder arthroplasties and osteophytic endplate spurring and bridging of multiple thoracic and lumbar vertebra. Chest wall: Telemetry leads overlying the chest. IMPRESSION: 1. Enteral feeding tube terminates overlying the region of the thoracic esophagus, just below the level of the kt. This should be advanced into the duodenum for optimal position. 2. Mild scattered lower left pulmonary subsegmental atelectasis. MACRO: None RADIOLOGY Mercedes Castro DO - 08/16/2023 EXAMINATION: XR CHEST AP OR PA 1 VIEW 08/16/2023 12:48 PM CLINICAL HISTORY: Feeding tube assessment ASSOCIATED DIAGNOSIS: Feeding tube assessment ORDERING PROVIDER: RONNIE JESUS [employer]ISTS NOTE: COMPARISON: XR CHEST AP OR PA 1 VIEW 08/16/2023, 10:33 AM FINDINGS: Position and projection: AP erect. Limitations: Mild rotation towards the right. Clinical considerations: Obtained from EMR. Lines, tubes, and devices: Enteral feeding tube terminates overlying the region of the thoracic esophagus, just below the level of the kt. Cardiomediastinal silhouette: Normal heart size. Aorta: Atherosclerotic calcification. Lungs and pleura: Mild scattered lower left pulmonary subsegmental atelectasis. No pulmonary consolidation, pleural effusion or pneumothorax. Osseous structures: Osteopenia, bilateral reverse total shoulder arthroplasties and osteophytic endplate spurring and bridging of multiple thoracic and lumbar vertebra. Chest wall: Telemetry leads overlying the chest. IMPRESSION: 1. Enteral feeding tube terminates overlying the region of the thoracic esophagus, just below the level of the kt. This should be advanced into the duodenum for optimal position. 2. Mild scattered lower left pulmonary subsegmental atelectasis. MACRO: None [facility] Radiology Study observation (narrative) [facility] EXAMINATION: XR CHES T AP OR PA 1 VIEW 08/16/2023 10:29 AM CLINICAL HISTORY: Feeding tube assessment ASSOCIATED DIAGNOSIS: Feeding tube assessment ORDERING PROVIDER: RONNIE JESUS [employer]ISTS NOTE: COMPARISON: XR CHEST AP OR PA 1 VIEW 08/16/2023, 10:30 AM XRAY CHEST IMAGE IMPORT(MICHELLE) 08/12/2023, 4:28 PM FINDINGS: IMPRESSION: Short interval progress exam: Corpak is in the distal esophagus and can be advanced. MACRO: None RADIOLOGY Artem Grace MD - 08/16/2023 EXAMINATION: XR CHEST AP OR PA 1 VIEW 08/16/2023 10:29 AM CLINICAL HISTORY: Feeding tube assessment ASSOCIATED DIAGNOSIS: Feeding tube assessment ORDERING PROVIDER: RONNIE JESUS [employer] NOTE: COMPARISON: XR CHEST AP OR PA 1 VIEW 08/16/2023, 10:30 AM XRAY CHEST IMAGE IMPORT(MICHELLE) 08/12/2023, 4:28 PM FINDINGS: IMPRESSION: Short interval progress exam: Corpak is in the distal esophagus and can be advanced. MACRO: None [facility] EXAMINATION: XR CHES T AP OR PA 1 VIEW 08/16/2023 10:20 AM CLINICAL HISTORY: Feeding tube assessment ASSOCIATED DIAGNOSIS: Feeding tube assessment ORDERING PROVIDER: RONNIE JESUS [employer] NOTE: COMPARISON: XRAY CHEST IMAGE IMPORT(MICHELLE) 08/12/2023, 4:[address] BODY IMAGE IMPORT(MICHELLE) 07/29/2023, 11:50 AM FINDINGS: Lines, tubes, and devices: Corpak curls in the hypopharynx. Withdrawal and replacement would be appropriate.. Lungs and pleura: Lower zone atelectasis Cardiomediastinal silhouette: Cardiac silhouette is largely obscured Musculoskeletal: Limited visualization. 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 Other: Small metallic density projects just cephalic to the aortic arch area, presumably extrinsic to the patient-clinically correlate.. IMPRESSION: Corpak curls in the hypopharynx. Removal and replacement would be appropriate MACRO: None RADIOLOGY Artem Grace MD - 08/16/2023 EXAMINATION: XR CHEST AP OR PA 1 VIEW 08/16/2023 10:20 AM CLINICAL HISTORY: Feeding tube assessment ASSOCIATED DIAGNOSIS: Feeding tube assessment ORDERING PROVIDER: RONNIE JESUS [employer] NOTE: COMPARISON: XRAY CHEST IMAGE IMPORT(MICHELLE) 08/12/2023, 4:[address] BODY IMAGE IMPORT(MICHELLE) 07/29/2023, 11:50 AM FINDINGS: Lines, tubes, and devices: Corpak curls in the hypopharynx. Withdrawal and replacement would be appropriate.. Lungs and pleura: Lower zone atelectasis Cardiomediastinal silhouette: Cardiac silhouette is largely obscured Musculoskeletal: Limited visualization. 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 Other: Small metallic density projects just cephalic to the aortic arch area, presumably extrinsic to the patient-clinically correlate.. IMPRESSION: Corpak curls in the hypopharynx. Removal and replacement would be appropriate MACRO: None [facility] Radiology Study observation (narrative) [facility] XR Chest Single viewOrdered By: Mercedes Castro on 08-16-2023 [employer] Work Phone: XR Chest Single viewOrdered By: Artem Grace on 08-16-2023 [employer] Work Phone: Anesthesia Postprocedure Cely mcknight 08-15-2023 Client Account Assistant Authentication Interface Message Text Normal The [employer] [facility] BASIC METABOLIC PANELon Anion gap [Moles/Vol] 10 mmol/L Normal 10-20 [facility] [employer] [facility] Comment on above: Performed By: #### C H8, PHOS, MG ####[facility] [id number] [place], [place], Calcium [Mass/Vol] 7.8 mg/dL Low 8.6-10.3 [facility] [employer] [facility] Comment on above: Performed By: #### C H8, PHOS, MG ####[facility] [id number] [place], [place], Chloride [Moles/Vol] 107 mmol/L Normal 98-107 The [employer] [facility] Comment on above: Performed By: #### C H8, PHOS, MG ####[facility] [id number] [place], CO2 [Moles/Vol] 23 mmol/L Normal 21-31 The [employer] [facility] Comment on above: Performed By: #### C H8, PHOS, MG ####[facility] [id number] [place], Creatinine [Mass/Vol] 0.57 mg/dL Low 0.60-1.20 The [employer] [facility] Comment on above: Performed By: #### C H8, PHOS, MG ####[facility] [id number] [place], ESTIMATED GFR (CKD-EPI) 90 mL/min/1.73sqm Normal >=60 [facility] [employer] [facility] Comment on above: Result Comment: 2020 CKD EPI Equation using Creatinine without RaceComment: Estimated glomerular filtration rate (eGFR) is calculated without a race coefficient. Values should be interpreted in the context of the patient's full clinical presentation.Reference:1. Isabella Israel M, Kaz FUENTES, et al.. A Unifying Approach for GFR Estimation: Recommendations of the NKF-ASN Task Force on Reassessing the Inclusion of Race in Diagnosing Kidney Disease. [place] Journal of Kidney Diseases 2021;79(2):268-88.e1.2. N Engl J Med 2020 Vol. 385 Issue 19 Pages 8823-0095 Performed By: #### CHASE Mims MG ####[facility] [id number] [place], [place], Glucose [Mass/Vol] 122 mg/dL High 74-109 [facility] Comment on above: Performed By: #### CHASE Mims MG ####[facility] [id number] [place], Potassium [Moles/Vol] 4.2 mmol/L Normal 3.5-5.0 [facility] Comment on above: Performed By: #### CHASE Mims MG ####[facility] [id number] [place], Sodium [Moles/Vol] 136 mmol/L Normal 136-145 [facility] Comment on above: Performed By: #### CHASE Mims MG ####[facility] [id number] [place], Urea nitrogen [Mass/Vol] 14 mg/dL Normal 7-25 [facility] Comment on above: Performed By: #### CHASE Mims MG ####[facility] [id number] [place], [place], Basic metabolic 2000 panelon 08-15-2023 Anion gap [Moles/Vol] 10 mmol/L 10 - 20 [facility] Calcium [Mass/Vol] 7.8 mg/dL Low 8.6 - 10. 3 mg/dL [facility] Chloride [Moles/Vol] 107 mmol/L 98 - 10 7 mmol/L [facility] CO2 [Moles/Vol] 23 mmol/L 21 - 31 mmol/L [facility] Creatinine [Mass/Vol] 0.57 mg/dL Low 0.60 - 1.20 mg/dL [facility] GFR/1.73 sq M.predicted CKD-EPI (S/P/Bld) [Vol rate/Area] 90 - PINF [facility] Comment on above: 2020 CKD EPI Equatio n using Creatinine without Race Comment: Estimated glomerular filtration rate (eGFR) is calculated without a race coefficient. Values should be interpreted in the context of the patient's full clinical presentation. Reference: 1. Nestor C, Isabella M, Kaz DC, et al.. A Unifying Approach for GFR Estimation: Recommendations of the NKF-ASN Task Force on Reassessing the Inclusion of Race in Diagnosing Kidney Disease. [place] Journal of Kidney Diseases 2021;79(2):268-88.e1. 2. N Engl J Med 2020 Vol. 385 Issue 19 Pages 3549-3041 Glucose [Mass/Vol] 122 mg/dL High 74 - 109 mg/dL [facility] Interpretation and review of laboratory results Abnormal [facility] Potassium [Moles/Vol] 4.2 mmol/L 3.5 - 5.0 mmol/L [facility] Sodium [Moles/Vol] 136 mmol/L 136 - 145 mmol/L [facility] Urea nitrogen [Mass/Vol] 14 mg/dL 7 - 25 mg/dL [facility] CBC panel Auto (Bld)on 08-14 Erythrocyte distribution width (RBC) [Ratio] 14.4 % 11.5 - 14.5 % [facility] Hematocrit (Bld) [Volume fraction] 26.6 % Low 36.0 - 46.0 % [facility] Hemoglobin (Bld) [Mass/Vol] 8.9 g/dL Low 12.0 - 15.0 g/dL [facility] Interpretation and review of laboratory results Abnormal [facility] MCH (RBC) [Entitic mass] 30.1 pg 26.0 - 34.0 pg [facility] MCHC (RBC) [Mass/Vol] 33.4 g/dL 32.0 - 35.9 g/dL [facility] MCV (RBC) [Entitic vol] 90 fL 80 - 100 fL [facility] Platelet mean volume (Bld) [Entitic vol] 6.8 fL Low 7.5 - 11.2 fL [facility] Platelets (Bld) [#/Vol] 314 10*3/uL 150 - 400 K/uL [facility] RBC (Bld) [#/Vol] 2.94 10*6/uL Low [facility] WBC (Bld) [#/Vol] 6.8 10*3/uL 4.5 - 11.5 K/uL [facility] COMPLETE BLOOD COUNTon 08-14 Erythrocyte distribution width (RBC) [Ratio] 14.4 % Normal 11.5-14.5 [facility] Comment on above: Performed By: #### C BC ####[facility] PATHOLOGY [id number] [place] [address], Hematocrit (Bld) [Volume fraction] 26.6 % Low 36.0-46.0 [facility] Comment on above: Performed By: #### C BC ####[facility] PATHOLOGY [id number] [place] [address], Hemoglobin (Bld) [Mass/Vol] 8.9 g/dL Low 12.0-15.0 [facility] Comment on above: Performed By: #### C BC ####[facility] PATHOLOGY [id number] [place] [address], MCH (RBC) [Entitic mass] 30.1 pg Normal 26.0-34.0 [facility] Comment on above: Performed By: #### C BC ####[facility] PATHOLOGY [id number] [place] [address], MCHC (RBC) [Mass/Vol] 33.4 g/dL Normal 32.0-35.9 [facility] Comment on above: Performed By: #### C BC ####[facility] PATHOLOGY [id number] [place] [address], MCV (RBC) [Entitic vol] 90 fL Normal 80-100 [facility] Comment on above: Performed By: #### C BC ####[facility] PATHOLOGY [id number] [place] [address], Platelet mean volume (Bld) [Entitic vol] 6.8 fL Low 7.5-11.2 [facility] Comment on above: Performed By: #### C BC ####[facility] PATHOLOGY [id number] [place] [address], Platelets (Bld) [#/Vol] 314 10*3/uL Normal 150-[address] [facility] Comment on above: Performed By: #### C BC ####S PATHOLOGY [id number] [place], [place], RBC (Bld) [#/Vol] 2.94 10*6/uL Low 4.00-5.20 [facility] Comment on above: Performed By: #### C BC ####S PATHOLOGY [id number] [place], [place], WBC (Bld) [#/Vol] 6.8 10*3/uL Normal 4.5-11.5 [facility] Comment on above: Performed By: #### C BC ####[facility] PATHOLOGY [id number] [place], [place], CT HEAD W/O CONTRASTon 08-14 CT HEAD W/O CONTRAST Normal [facility] CT Head WO contrastOrdered B y: Christine Ramirez on 08-15-2023 CT DLP 1325.7 (mGy.cm) [facility] Work Phone: CT Series Head [facility] Work Phone: CTDI VOL 67.5 (mGy) [facility] Work Phone: PHANTOM TYPE IEC Head Dosimetry Phantom [facility] Work Phone: [facility] Work Phone: CT Head WO contraston 2023 EXAMINATION: CT HEAD W/O CONTRAST 08/14/2023 11:04 PM CLINICAL HISTORY: s/p L katty holes for SDH evac, eval evac ASSOCIATED DIAGNOSIS: s/p L katty holes for SDH evac, eval evac ORDERING PROVIDER: [employer] NOTE: COMPARISON: CT HEAD W/O CONTRAST 08/12/2023, 11:03 PM TECHNIQUE: Thin axial imaging of the head was performed without intravenous contrast. FINDINGS: Postsurgical changes of left-sided katty hole with a air-fluid level present after evacuation of left subdural hematoma. Residual left cerebral convexity subdural hemorrhage is seen. There is decreasing mass effect from the previous subdural hematoma, resulting in a 0.8 cm left to right midline shift. There is improvement in the previously described left uncal perching. Expected evolution of left frontal lobe intraparenchymal hemorrhage. 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 IMPRESSION: Postoperative change of left sided katty hole with improvement in the left to right midline shift and left cerebral convexity subdural hemorrhage. MACRO: None RADIOLOGY Cristy Ramirez i, MD - 08/15/2023 EXAMINATION: CT HEAD W/O CONTRAST 08/14/2023 11:04 PM CLINICAL HISTORY: s/p L katty holes for SDH evac, eval evac ASSOCIATED DIAGNOSIS: s/p L katty holes for SDH evac, eval evac ORDERING PROVIDER: [employer] NOTE: COMPARISON: CT HEAD W/O CONTRAST 08/12/2023, 11:03 PM TECHNIQUE: Thin axial imaging of the head was performed without intravenous contrast. FINDINGS: Postsurgical changes of left-sided katty hole with a air-fluid level present after evacuation of left subdural hematoma. Residual left cerebral convexity subdural hemorrhage is seen. There is decreasing mass effect from the previous subdural hematoma, resulting in a 0.8 cm left to right midline shift. There is improvement in the previously described left uncal perching. Expected evolution of left frontal lobe intraparenchymal hemorrhage. 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 IMPRESSION: Postoperative change of left sided katty hole with improvement in the left to right midline shift and left cerebral convexity subdural hemorrhage. MACRO: None [facility] Noteon 08-15-2023 Client Account Assistant Authentication Interface Message Text Normal [facility] Consultson 08-15-2023 Client Account Assistant Authentication Interface Message Text Normal [facility] Client Account Assistant Authentication Interface Message Text Normal [facility] Client Account Assistant Authentication Interface Message Text Normal [facility] Client Account Assistant Authentication Interface Message Text Normal [facility] MAGNESIUMon 08-15-2023 Magnesium [Mass/Vol] 2.0 mg/dL 1.9 - 2 .7 mg/dL [facility] Magnesium [Mass/Vol] 2.0 mg/dL Normal 1.9-2.7 [facility] Comment on above: Performed By: #### Jr Red, PHOS, MG ####[facility] [id number] [place], [place], No Panel Informationon 08-14 Radiology Study observation (narrative) [facility] Interpretation and review of laboratory results Normal [facility] PHOSPHORUSon 08-15-2023 Phosphate [Mass/Vol] 3.7 mg/dL 2.5 - 5 .0 mg/dL [facility] Phosphate [Mass/Vol] 3.7 mg/dL Normal 2.5-5.0 [facility] Comment on above: Performed By: #### Jr Red, PHOS, MG ####[facility] [id number] [place], Post-Procedure Noteon 2023 Client Account Assistant Authentication Interface Message Text Normal [facility] Pre-Procedure Noteon Client Account Assistant Authentication Interface Message Text Normal [facility] Progress Noteson 08-15-2023 Client Account Assistant Authentication Interface Message Text Normal [facility] Client Account Assistant Authentication Interface Message Text Normal [facility] Client Account Assistant Authentication Interface Message Text Normal [facility] Client Account Assistant Authentication Interface Message Text Normal [facility] Client Account Assistant Authentication Interface Message Text Patient has right sided weakness with arm and leg drift. 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 Speech has worsened. TICU team notified Normal [facility] Client Account Assistant Authentication Interface Message Text Normal [facility] Anesthesia Preprocedure Eval uationon 08-14-2023 Client Account Assistant Authentication Interface Message Text Normal [facility] Anesthesia Transfer Of Careo n 08-14-2023 Client Account Assistant Authentication Interface Message Text Normal [facility] BASIC METABOLIC PANELon Anion gap [Moles/Vol] 10 mmol/L Normal 10-20 [facility] Comment on above: Performed By: ###ALFIE Lopez ####[facility] [id number] [place], Calcium [Mass/Vol] 8.6 mg/dL Normal 8.6-10.3 [facility] Comment on above: Performed By: ###ALFIE Lopez ####[facility] [id number] [place], Chloride [Moles/Vol] 106 mmol/L Normal 98-107 [facility] Comment on above: Performed By: #### Brittany Arthur CH8 ####S PATHOLOGY [id number] [place], CO2 [Moles/Vol] 26 mmol/L Normal 21-31 [facility] Comment on above: Performed By: #### Brittany Arthur CH8 ####S PATHOLOGY [id number] [place], Creatinine [Mass/Vol] 0.58 mg/dL Low 0.60-1.20 [facility] Comment on above: Performed By: #### Brittany Arthur CH8 ####[facility] PATHOLOGY [id number] [place], ESTIMATED GFR (CKD-EPI) 89 mL/min/1.73sqm Normal >=60 [facility] Comment on above: Result Comment: 2020 CKD EPI Equation using Creatinine without RaceComment: Estimated glomerular filtration rate (eGFR) is calculated without a race coefficient. Values should be interpreted in the context of the patient's full clinical presentation.Reference:1. Nestor C, Isabella M, Kaz FUENTES, et al.. A Unifying Approach for GFR Estimation: Recommendations of the NKF-ASN Task Force on Reassessing the Inclusion of Race in Diagnosing Kidney Disease. [place] Journal of Kidney Diseases 2021;79(2):268-88.e1.2. N Engl J Med 2020 Vol. 385 Issue 19 Pages 7883-1146 Performed By: #### Brittany Arthur CH8 ####S PATHOLOGY [id number] [place], Glucose [Mass/Vol] 118 mg/dL High 74-109 [facility] Comment on above: Performed By: #### Brittany Arthur CH8 ####S PATHOLOGY [id number] [place], Potassium [Moles/Vol] 4.1 mmol/L Normal 3.5-5.0 [facility] Comment on above: Performed By: #### M G, CH8 ####[facility] PATHOLOGY [id number] [place], Sodium [Moles/Vol] 138 mmol/L Normal 136-145 [facility] Comment on above: Performed By: #### Brittany Arthur, CH8 ####[facility] PATHOLOGY [id number] [place], Urea nitrogen [Mass/Vol] 19 mg/dL Normal 7-25 [facility] Comment on above: Performed By: #### Brittany Arthur, CH8 ####[facility] PATHOLOGY [id number] [place], BLOOD GAS, ARTERIALOrdered B y: Cortez Valladares on 08-14-2023 Base excess Calc (Bld) [Moles/Vol] -1.1000 mmol/L -2.0 - 3.0 mmol/L [facility] CO2 (Bld) [Partial pressure] 38.9 mm[Hg] [facility] Oxygen (Bld) [Partial pressure] 227 mm[Hg] High [facility] pH (Bld) 7.391 [pH] 7.350 - 7.450 [facility] BLOOD GAS, ARTERIALon 2023 CR BRANDI -1.1 mmol/L Normal -2.0-3.0 [facility] Comment on above: Performed By: #### C R COOX, CR ICA, CR BGA, CR LYTES, LACT, CR GLU ####[facility] PATHOLOGY [id number] [place], CR PCO2 38.9 mm Hg Normal 35.0-45.0 [facility] Comment on above: Performed By: #### C R COOX, CR ICA, CR BGA, CR LYTES, LACT, CR GLU ####[facility] PATHOLOGY [id number] [place], CR PHA 7.391 Normal 7.350-7.45 0 The [facility] Comment on above: Performed By: #### C R COOX, CR ICA, CR BGA, CR LYTES, LACT, CR GLU ####[facility] PATHOLOGY [id number] [place], CR PO2 227 mm Hg High 80-100 [facility] Comment on above: Performed By: #### C R COOX, CR ICA, CR BGA, CR LYTES, LACT, CR GLU ####S PATHOLOGY [id number] [place], HCO3 (Bld) [Moles/Vol] 23 mmol/L Normal 21-28 Th e [facility] Comment on above: Performed By: #### C R COOX, CR ICA, CR BGA, CR LYTES, LACT, CR GLU ####S PATHOLOGY [id number] [place], Oxygen saturation in Blood 99.2 % High 95.0-99.0 [facility] Comment on above: Performed By: #### C R COOX, CR ICA, CR BGA, CR LYTES, LACT, CR GLU ####[facility] PATHOLOGY [id number] [place], [place], Basic metabolic 2000 panelon 08-14-2023 Anion gap [Moles/Vol] 10 mmol/L 10 - 20 [facility] Calcium [Mass/Vol] 8.6 mg/dL 8.6 - 10. 3 mg/dL [facility] Chloride [Moles/Vol] 106 mmol/L 98 - 10 7 mmol/L [facility] CO2 [Moles/Vol] 26 mmol/L 21 - 31 mmol/L [facility] Creatinine [Mass/Vol] 0.58 mg/dL Low 0.60 - 1.20 mg/dL [facility] GFR/1.73 sq M.predicted CKD-EPI (S/P/Bld) [Vol rate/Area] 89 - PINF [facility] Comment on above: 2020 CKD EPI Equatio n using Creatinine without Race Comment: Estimated glomerular filtration rate (eGFR) is calculated without a race coefficient. Values should be interpreted in the context of the patient's full clinical presentation. Reference: 1. Nestor C, Isabella M, Kaz FUENTES, et al.. A Unifying Approach for GFR Estimation: Recommendations of the NKF-ASN Task Force on Reassessing the Inclusion of Race in Diagnosing Kidney Disease. [place] Journal of Kidney Diseases 2021;79(2):268-88.e1. 2. N Engl J Med 2021 Vol. 385 Issue 19 Pages 7930-9846 Glucose [Mass/Vol] 118 mg/dL High 74 - 109 mg/dL [facility] Potassium [Moles/Vol] 4.1 mmol/L 3.5 - 5.0 mmol/L [facility] Sodium [Moles/Vol] 138 mmol/L 136 - 145 mmol/L [facility] Urea nitrogen [Mass/Vol] 19 mg/dL 7 - 25 mg/dL [facility] Blood Attestationon 08-14-19 Client Account Assistant Authentication Interface Message Text Normal [facility] Brief Operative Noteon 08-13 Client Account Assistant Authentication Interface Message Text Normal [facility] CALCIUM, IONIZEDon Calcium.ionized (Bld) [Moles/Vol] 1.20 mmol/L 1.15 - 1.33 mmol/L [facility] Comment on above: This test was develo ped, and its performance characteristics determined by the Department of Pathology of The [facility]. It has not been cleared or approved by the FDA. This test is used for clinical purposes only. Interpretation and review of laboratory results Normal [facility] CR ICA 1.20 mmol/L Normal 1.15-1.33 [facility] Comment on above: Result Comment: This test was developed, and its performance characteristics determined by the Department of Pathology of The [facility]. It has not been cleared or approved by the FDA. This test is used for clinical purposes only. Performed By: #### C R COOX, CR ICA, CR BGA, CR LYTES, LACT, CR GLU ####[facility] [id number] [place], [id number] CBC WITH DIFFERENTIALOrdered By: Gunjan Cash on 08-14-2023 Basophils (Bld) [#/Vol] 0.05 10*3/uL 0.00 - 0.20 K/uL [facility] Basophils/100 WBC (Bld) 0.7 % NINF - 1.9 % [facility] Eosinophils (Bld) [#/Vol] 0.11 10*3/uL 0.00 - 0.70 K/uL [facility] Eosinophils/100 WBC (Bld) 1.5 % 0.1 - 4.0 % [facility] Erythrocyte distribution width (RBC) [Ratio] 14.4 % 11.5 - 14.5 % [facility] Hematocrit (Bld) [Volume fraction] 28.5 % Low 36.0 - 46.0 % [facility] Hemoglobin (Bld) [Mass/Vol] 9.5 g/dL Low 12.0 - 15.0 g/dL [facility] Interpretation and review of laboratory results Abnormal [facility] Lymphocytes (Bld) [#/Vol] 0.73 10*3/uL Low 1.00 - 4.80 K/uL [facility] Lymphocytes/100 WBC (Bld) 10.4 % Low 24.0 - 44.0 % [facility] MCH (RBC) [Entitic mass] 30.8 pg 26.0 - 34.0 pg [facility] MCHC (RBC) [Mass/Vol] 33.5 g/dL 32.0 - 35.9 g/dL [facility] MCV (RBC) [Entitic vol] 92 fL 80 - 100 fL [facility] Monocytes (Bld) [#/Vol] 0.53 10*3/uL 0.20 - 1.00 K/uL [facility] Monocytes/100 WBC (Bld) 7.6 % 2.0 - 11.0 % [facility] Neutrophils (Bld) [#/Vol] 5.60 10*3/uL 1.50 - 8.00 K/uL [facility] Neutrophils/100 WBC (Bld) 79.8 % High 31.0 - 76.0 % [facility] Nucleated RBC (Bld) [#/Vol] 0.01 10*3/uL [facility] Nucleated RBC/100 WBC (Bld) [Ratio] [facility] Platelet mean volume (Bld) [Entitic vol] 7.2 fL Low 7.5 - 11.2 fL [facility] Platelets (Bld) [#/Vol] 291 10*3/uL 150 - 400 K/uL [facility] RBC (Bld) [#/Vol] 3.10 10*6/uL Low [facility] WBC (Bld) [#/Vol] 7.0 10*3/uL 4.5 - 11.5 K/uL [facility] CBC WITH DIFFERENTIALon 06-0 Basophils (Bld) [#/Vol] 0.05 10*3/uL Normal 0.00-0.20 [facility] Comment on above: Performed By: #### C BCDSAT ####[facility] [id number] [place], Basophils/100 WBC (Bld) 0.7 % Normal <=1.9 [facility] Comment on above: Performed By: #### C BCDSAT ####[facility] [id number] [place], [place], Eosinophils (Bld) [#/Vol] 0.11 10*3/uL Normal 0.00-0.70 [facility] Comment on above: Performed By: #### C BCDSAT ####[facility] [id number] [place], Eosinophils/100 WBC (Bld) 1.5 % Normal 0.1-4.0 [facility] Comment on above: Performed By: #### C BCDSAT ####[facility] [id number] [place] [address], Erythrocyte distribution width (RBC) [Ratio] 14.4 % Normal 11.5-14.5 [facility] Comment on above: Performed By: #### C BCDSAT ####[facility] [id number] [place] [address], Hematocrit (Bld) [Volume fraction] 28.5 % Low 36.0-46.0 [facility] Comment on above: Performed By: #### C BCDSAT ####[facility] [id number] [place], Hemoglobin (Bld) [Mass/Vol] 9.5 g/dL Low 12.0-15.0 [facility] Comment on above: Performed By: #### C BCDSAT ####[facility] [id number] [place], Lymphocytes (Bld) [#/Vol] 0.73 10*3/uL Low 1.00-4.80 [facility] Comment on above: Performed By: #### C BCDSAT ####[facility] [id number] [place], Lymphocytes/100 WBC (Bld) 10.4 % Low 24.0-44.0 [facility] Comment on above: Performed By: #### Jr GARCIAAT ####[facility] [id number] [place], MCH (RBC) [Entitic mass] 30.8 pg Normal 26.0-34.0 [facility] Comment on above: Performed By: #### Jr GARCIAAT ####[facility] [id number] [place] [address], MCHC (RBC) [Mass/Vol] 33.5 g/dL Normal 32.0-35.9 [facility] Comment on above: Performed By: #### Jr GARCIAAT ####[facility] PATH[facility] [id number] [place] [address], MCV (RBC) [Entitic vol] 92 fL Normal 80-100 [facility] Comment on above: Performed By: #### Jr GARCIAAT ####[facility] [id number] [place] [address], Monocytes (Bld) [#/Vol] 0.53 10*3/uL Normal 0.20-1.00 [facility] Comment on above: Performed By: #### Jr GARCIAAT ####[facility] [id number] [place], Monocytes/100 WBC (Bld) 7.6 % Normal 2.0-11.0 [facility] Comment on above: Performed By: #### Jr GARCIAAT ####[facility] [id number] [place] [address], Neutrophils (Bld) [#/Vol] 5.60 10*3/uL Normal 1.50-8.00 [facility] Comment on above: Performed By: #### Jr GARCIAAT ####[facility] [id number] [place], Neutrophils/100 WBC (Bld) 79.8 % High 31.0-76.0 [facility] Comment on above: Performed By: #### Jr GARCIAAT ####[facility] [id number] [place], Nucleated RBC (Bld) [#/Vol] 10*3/uL Normal [facility] Comment on above: Performed By: #### Jr GARCIAAT ####[facility] [id number] [place], Nucleated RBC (Bld) [#/Vol] 0.01 10*3/uL Normal [facility] Comment on above: Performed By: #### Jr GARCIAAT ####[facility] [id number] [place], Platelet mean volume (Bld) [Entitic vol] 7.2 fL Low 7.5-11.2 [facility] Comment on above: Performed By: #### Jr GARCIAAT ####[facility] [id number] [place], Platelets (Bld) [#/Vol] 291 10*3/uL Normal 150-400 [facility] Comment on above: Performed By: #### Jr GARCIAAT ####[facility] [id number] [place], RBC (Bld) [#/Vol] 3.10 10*6/uL Low 4.00-5.20 [facility] Comment on above: Performed By: #### Jr GARCIAAT ####[facility] [id number] [place], WBC (Bld) [#/Vol] 7.0 10*3/uL Normal 4.5-11.5 [facility] Comment on above: Performed By: #### Jr GARCIAAT ####[facility] [id number] [place], [place], CO-OXIMETERon 08-14-2023 Carboxyhemoglobin (BldA) [Mass fraction] 1.3 % 0.5 - 1.5 % [facility] Hematocrit (BldA) [Volume fraction] 29.6 % Low 38.0 - 46.0 % [facility] Hemoglobin (Bld) [Mass/Vol] 9.6 g/dL Low 12.0 - 16.0 g/dL [facility] Methemoglobin (BldA) [Mass fraction] 1.3 % 0.0 - 1.5 % [facility] Oxyhemoglobin (BldA) [Mass fraction] 96.6 % 94.0 - 98.0 % [facility] CARBOXYHEMOGLOBIN 1.3 % Normal 0.5-1.5 [facility] Comment on above: Performed By: #### C R COOX, CR ICA, CR BGA, CR LYTES, LACT, CR GLU ####[facility] [id number] [place] [address], CR HBMET 1.3 % Normal 0.0-1.5 [facility] Comment on above: Performed By: #### C R COOX, CR ICA, CR BGA, CR LYTES, LACT, CR GLU ####[facility] [id number] [place] [address], Hematocrit (Bld) [Volume fraction] 29.6 % Low 38.0-46.0 [facility] Comment on above: Performed By: #### C R COOX, CR ICA, CR BGA, CR LYTES, LACT, CR GLU ####[facility] [id number] [place] [address], Hemoglobin (Bld) [Mass/Vol] 9.6 g/dL Low 12.0-16.0 [facility] Comment on above: Performed By: #### C R COOX, CR ICA, CR BGA, CR LYTES, LACT, CR GLU ####[facility] [id number] [place] [address], OXYHEMOGLOBIN 96.6 % Normal 94.0-98.0 [facility] Comment on above: Performed By: #### C R COOX, CR ICA, CR BGA, CR LYTES, LACT, CR GLU ####[facility] [id number] [place] [address], CT Head WO contraston 2023 Radiology Study observation (narrative) [facility] 08-14-2023 Client Account Assistant Authentication Interface Message Text Physical Therapy Note Attempted to see patient, however patient just returned from OR, not able to be seen per nurse. 6.4.24: s/p left sided katty holes for evacuation of subdural hematoma Will continue to follow. Vickie Pete, PT, DPT #[phone] Normal [facility] ELECTROLYTESon 08-14-2023 Chloride [Moles/Vol] 106 mmol/L 98 - 10 7 mmol/L [facility] Potassium [Moles/Vol] 3.3 mmol/L Low 3.5 - 5.0 mmol/L [facility] Sodium [Moles/Vol] 137 mmol/L 136 - 146 mmol/L [facility] Chloride [Moles/Vol] 106 mmol/L Normal 98-107 [facility] Comment on above: Performed By: #### C R COOX, CR ICA, CR BGA, CR LYTES, LACT, CR GLU ####[facility] [id number] [place], Potassium [Moles/Vol] 3.3 mmol/L Low 3.5-5.0 [facility] Comment on above: Performed By: #### C R COOX, CR ICA, CR BGA, CR LYTES, LACT, CR GLU ####[facility] [id number] [place], Sodium [Moles/Vol] 137 mmol/L Normal 136-146 [facility] Comment on above: Performed By: #### C R COOX, CR ICA, CR BGA, CR LYTES, LACT, CR GLU ####[facility] [id number] [place], GLUCOSE, WHOLE BLOODon 08-13 Glucose [Mass/Vol] 144 mg/dL High 70 - 105 mg/dL [facility] CR GLU 144 mg/dL High 70-105 [facility] Comment on above: Performed By: #### C R COOX, CR ICA, CR BGA, CR LYTES, LACT, CR GLU ####[facility] [id number] [place], H AND Ezra 08-14-2023 Client Account Assistant Authentication Interface Message Text Normal [facility] LACTIC ACIDon 08-14-2023 Interpretation and review of laboratory results Normal [facility] Lactate [Moles/Vol] 1.2 mmol/L 0.5 - 1. 6 mmol/L [facility] CR LACT 1.2 mmol/L Normal 0.5-1.6 [facility] Comment on above: Performed By: #### C R COOX, CR ICA, CR BGA, CR LYTES, LACT, CR GLU ####[facility] [id number] [place], Laboratory - Chemistry and C hemistry - challengeon 08-14-2023 HCO3 (Bld) [Moles/Vol] 23 mmol/L 21 - 28 mmol/L [facility] MAGNESIUMon 08-14-2023 Magnesium [Mass/Vol] 1.8 mg/dL Low 1.9 - 2 .7 mg/dL [facility] Magnesium [Mass/Vol] 1.8 mg/dL Low 1.9-2.7 [facility] Comment on above: Performed By: #### M G, CH8 ####[facility] [id number] [place], [place], No Panel Informationon 08-13 Interpretation and review of laboratory results Abnormal [facility] Interpretation and review of laboratory results Abnormal [facility] OP Noteon 08-14-2023 Client Account Assistant Authentication Interface Message Text Normal [facility] Progress Noteson 08-14-2023 Client Account Assistant Authentication Interface Message Text Normal [facility] Client Account Assistant Authentication Interface Message Text Normal [facility] Client Account Assistant Authentication Interface Message Text Normal [facility] Treatment Plan Noteon 2023 Client Account Assistant Authentication Interface Message Text Normal [facility] BASIC METABOLIC PANELon 06-0 Anion gap [Moles/Vol] 11 mmol/L Normal 10-20 [facility] Comment on above: Performed By: #### C H8, MG, PHOS ####[facility] [id number] [place], Calcium [Mass/Vol] 9.0 mg/dL Normal 8.6-10.3 [facility] Comment on above: Performed By: #### C H8, MG, PHOS ####[facility] [id number] [place], Chloride [Moles/Vol] 108 mmol/L High 98-[address] [facility] Comment on above: Performed By: #### MG Prasanna PHOS ####[facility] [id number] [place], CO2 [Moles/Vol] 26 mmol/L Normal 21-[address] [facility] Comment on above: Performed By: #### MG Prasanna, PHOS ####[facility] [id number] [place], Creatinine [Mass/Vol] 0.66 mg/dL Normal 0.60-1.20 [facility] Comment on above: Performed By: #### MG Prasanna, PHOS ####[facility] [id number] [place], ESTIMATED GFR (CKD-EPI) 86 mL/min/1.73sqm Normal >=[address] [facility] Comment on above: Result Comment: 2020 CKD EPI Equation using Creatinine without RaceComment: Estimated glomerular filtration rate (eGFR) is calculated without a race coefficient. Values should be interpreted in the context of the patient's full clinical presentation.Reference:1. Nestor C, [place] M, Kaz DC, et al.. A Unifying Approach for GFR Estimation: Recommendations of the NKF-ASN Task Force on Reassessing the Inclusion of Race in Diagnosing Kidney Disease. [place] Journal of Kidney Diseases 2021;79(2):268-88.e1.2. N Engl J Med 2020 Vol. 385 Issue 19 Pages 2969-6441 Performed By: #### MG Prasanna PHOS ####[facility] [id number] [place], Glucose [Mass/Vol] 103 mg/dL Normal 74-[address] [facility] Comment on above: Performed By: #### MG Prasanna, PHOS ####[facility] [id number] [place], Potassium [Moles/Vol] 4.2 mmol/L Normal 3.5-5.[address] [facility] Comment on above: Performed By: #### MG Prasanna, PHOS ####[facility] [id number] [place], Sodium [Moles/Vol] 141 mmol/L Normal 136-145 [facility] Comment on above: Performed By: #### Jr Jung8MG PHOS ####[facility] [id number] [place], Urea nitrogen [Mass/Vol] 20 mg/dL Normal 7-25 [facility] Comment on above: Performed By: #### MG Mims PHOS ####[facility] [id number] [place], Basic metabolic 2000 panelon 08-13-2023 Anion gap [Moles/Vol] 11 mmol/L 10 - 20 [facility] Calcium [Mass/Vol] 9.0 mg/dL 8.6 - 10. 3 mg/dL [facility] Chloride [Moles/Vol] 108 mmol/L High 98 - 10 7 mmol/L [facility] CO2 [Moles/Vol] 26 mmol/L 21 - 31 mmol/L [facility] Creatinine [Mass/Vol] 0.66 mg/dL 0.60 - 1.20 mg/dL [facility] GFR/1.73 sq M.predicted CKD-EPI (S/P/Bld) [Vol rate/Area] 86 - PINF [facility] Comment on above: 2020 CKD EPI Equatio n using Creatinine without Race Comment: Estimated glomerular filtration rate (eGFR) is calculated without a race coefficient. Values should be interpreted in the context of the patient's full clinical presentation. Reference: 1. Nestor C, Isabella M, Kaz FUENTES, et al.. A Unifying Approach for GFR Estimation: Recommendations of the NKF-ASN Task Force on Reassessing the Inclusion of Race in Diagnosing Kidney Disease. [place] Journal of Kidney Diseases 202;79(2):268-88.e1. 2. N Engl J Med 1 Vol. 385 Issue 19 Pages 8925-6869 Glucose [Mass/Vol] 103 mg/dL 74 - 109 mg/dL [facility] Interpretation and review of laboratory results Abnormal [facility] Potassium [Moles/Vol] 4.2 mmol/L 3.5 - 5.0 mmol/L [facility] Sodium [Moles/Vol] 141 mmol/L 136 - 145 mmol/L [facility] Urea nitrogen [Mass/Vol] 20 mg/dL 7 - 25 mg/dL [facility] CBC panel Auto (Bld)on 08-12 Erythrocyte distribution width (RBC) [Ratio] 14.6 % High 11.5 - 14.5 % [facility] Hematocrit (Bld) [Volume fraction] 30.0 % Low 36.0 - 46.0 % [facility] Hemoglobin (Bld) [Mass/Vol] 10.0 g/dL Low 12.0 - 15.0 g/dL [facility] Interpretation and review of laboratory results Abnormal [facility] MCH (RBC) [Entitic mass] 30.6 pg 26.0 - 34.0 pg [facility] MCHC (RBC) [Mass/Vol] 33.3 g/dL 32.0 - 35.9 g/dL [facility] MCV (RBC) [Entitic vol] 92 fL 80 - 100 fL [facility] Platelet mean volume (Bld) [Entitic vol] 6.8 fL Low 7.5 - 11.2 fL [facility] Platelets (Bld) [#/Vol] 311 10*3/uL 150 - 400 K/uL [facility] RBC (Bld) [#/Vol] 3.28 10*6/uL Low [facility] WBC (Bld) [#/Vol] 6.9 10*3/uL 4.5 - 11.5 K/uL [facility] COMPLETE BLOOD COUNTon 08-12 Erythrocyte distribution width (RBC) [Ratio] 14.6 % High 11.5-14.5 [facility] Comment on above: Performed By: #### C BC ####S PATHOLOGY [id number] [place] [address], Hematocrit (Bld) [Volume fraction] 30.0 % Low 36.0-46.0 [facility] Comment on above: Performed By: #### C BC ####S PATHOLOGY [id number] [place] [address], Hemoglobin (Bld) [Mass/Vol] 10.0 g/dL Low 12.0-15.0 [facility] Comment on above: Performed By: #### C BC ####[facility] [id number] [place], MCH (RBC) [Entitic mass] 30.6 pg Normal 26.0-34.0 [facility] Comment on above: Performed By: #### C BC ####[facility] [id number] [place], MCHC (RBC) [Mass/Vol] 33.3 g/dL Normal 32.0-35.9 [facility] Comment on above: Performed By: #### C BC ####[facility] [id number] [place], MCV (RBC) [Entitic vol] 92 fL Normal 80-100 [facility] Comment on above: Performed By: #### C BC ####[facility] [id number] [place], Platelet mean volume (Bld) [Entitic vol] 6.8 fL Low 7.5-11.2 [facility] Comment on above: Performed By: #### C BC ####[facility] [id number] [place], Platelets (Bld) [#/Vol] 311 10*3/uL Normal 150-400 [facility] Comment on above: Performed By: #### C BC ####[facility] [id number] [place], RBC (Bld) [#/Vol] 3.28 10*6/uL Low 4.00-5.20 [facility] Comment on above: Performed By: #### C BC ####[facility] [id number] [place], WBC (Bld) [#/Vol] 6.9 10*3/uL Normal 4.5-11.5 [facility] Comment on above: Performed By: #### C BC ####[facility] [id number] [place], [place], CT Head or Brain w/o Contras ton 08-13-2023 CT Head or Brain w/o Contrast Exam Date/Time: 08/12/2023 16:43 EDT Reason for Exam: Altered mental status Report IMPRESSION: ENLARGING APPROXIMATELY 2 CM PREDOMINANTLY LEFT FRONTAL SUBDURAL HEMATOMA WITH INCREASING [id number] MIDLINE SHIFT, NOTED. Critical communication: Evert Perkins PA-C was notified at approximately 5:39 PM on 08/12/2023 by [facility] radiologist. EXAM: CT Head or Brain w/o Contrast DATE: 08/12/2023 4:29 PM CLINICAL HISTORY: Altered mental status. COMPARISON: 07/29/2023. TECHNIQUE: Routine. All CT scans at this facility use dose modulation, iterative reconstruction, and/or weight based dosing when appropriate to reduce radiation dose to as low as reasonably achievable. FINDINGS: Since the prior study, a mixed (predominantly fluid) density predominantly left frontal subdural hematoma has enlarged to approximately 2 cm in maximum thickness (compared to 1.4 cm, measured in a similar fashion), which results in approximately 1 cm of [id number] midline shift with mild subfalcine and uncal herniation. There is no hydrocephalus, fracture, or other significant changes identified. The mastoid air cells and visualized paranasal sinuses are essentially clear. Ordering Provider: Aurea Pichardo FINAL REPORT Dictated: 08/13/2023 9:50 am Anant Ford MD Signed (Electronic Signature): 08/13/2023 9:50 am Signed by: Anant Ford MD Transcribed by: BRENDA Technologist: LOLI Summers [facility] Care Plan Noteon 08-13-2023 Client Account Assistant Authentication Interface Message Text Normal [facility] Client Account Assistant Authentication Interface Message Text Normal [facility] Consultson 08-13-2023 Client Account Assistant Authentication Interface Message Text Normal [facility] Client Account Assistant Authentication Interface Message Text Normal [facility] Client Account Assistant Authentication Interface Message Text Normal [facility] GLUCOSE, FINGERSTICK-IN OFFI CEon 08-13-2023 Glucose [Mass/Vol] 108 mg/dL 80 - 116 mg/dL [facility] Interpretation and review of laboratory results Normal [facility] Glucose [Mass/Vol] 108 mg/dL Normal 80-116 [facility] Comment on above: Performed By: #### 8 2948 ####NURSING GLUCOSE [id number] [place] [address], [address] Glucose [Mass/Vol] 105 mg/dL 80 - 116 mg/dL [facility] Interpretation and review of laboratory results Normal [facility] Glucose [Mass/Vol] 105 mg/dL Normal 80-116 [facility] Comment on above: Performed By: #### 8 2948 ####NURSING GLUCOSE [id number] [place], MAGNESIUMon 08-13-2023 Magnesium [Mass/Vol] 2.0 mg/dL 1.9 - 2 .7 mg/dL [facility] Magnesium [Mass/Vol] 2.0 mg/dL Normal 1.9-2.7 [facility] Comment on above: Performed By: #### Jr HSurinder, MG PHOS ####[facility] [id number] [place], No Panel Informationon 08-12 Extra Tube Done [facility] Interpretation and review of laboratory results Normal [facility] PARTIAL THROMBOPLASTIN TIMEo n 08-13-2023 aPTT Coag (Bld) [Time] Low [facility] Interpretation and review of laboratory results Abnormal [facility] aPTT Coag (Bld) [Time] s Low 25-37 Th e [facility] Comment on above: Performed By: #### A PTT, PT ####[facility] [id number] [place], PHOSPHORUSon 08-13-2023 Phosphate [Mass/Vol] 3.0 mg/dL 2.5 - 5 .0 mg/dL [facility] Phosphate [Mass/Vol] 3.0 mg/dL Normal 2.5-5.0 [facility] Comment on above: Performed By: #### C H8, MG, PHOS ####[facility] [id number] [place], PROTHROMBIN TIME AND INRon 0 08-13-2023 INR Coag (PPP) [Relative time] 1.08 {INR} 0.90 - 1.10 [facility] Interpretation and review of laboratory results Normal [facility] [facility] PT Coag (PPP) [Time] 12.1 s [facility] INR Coag (PPP) [Relative time] 1.08 {INR} Normal 0.90-1.10 [facility] Comment on above: Performed By: #### A PTT, PT ####S PATHOLOGY [id number] [place], [place], PT Coag (PPP) [Time] 12.1 s Normal 9.7-12.9 [facility] Comment on above: Performed By: #### A PTT, PT ####S PATHOLOGY [id number] [place], [place], Progress Noteson 08-13-2023 Client Account Assistant Authentication Interface Message Text Normal [facility] Client Account Assistant Authentication Interface Message Text Normal [facility] Telephone Encounteron 2023 Client Account Assistant Authentication Interface Message Text Normal [facility] URINALYSISon 08-13-2023 Appearance (U) Turbid Clear [facility] Bilirubin Ql (U) Negative Negative [facility] Color (U) Light Yellow Colorless [facility] Epithelial cells.squamous LM.HPF (Urine sed) [#/Area] 0-2 [facility] Glucose Auto test strip (U) [Mass/Vol] Negative Negative mg/dL [facility] Hemoglobin Ql (U) Negative Negative [facility] Interpretation and review of laboratory results Abnormal [facility] Ketones Ql (U) Negative Negative mg/dL [facility] Leukocyte esterase Test strip Ql (U) Positive Abnormal Negative [facility] Comment on above: Normal urine specime ns will not produce a positive reaction. Small amounts of leukocyte esterase, causing a positive reaction should be repeated, using a fresh urine specimen, from the same patient. Positive results require further testing for pyuria. Mucus Ql (Urine sed) Present [facility] Nitrite Ql (U) Negative Negative [facility] pH (U) 6.0 [pH] 5.0 - 8.0 [facility] Protein (U) [Mass/Vol] 20 mg/dL Negative [facility] Specific gravity (U) [Rel density] 1.018 NINF - 1.030 [facility] Urobilinogen Qn (U) Negative Negative mg/dL [facility] WBC (U) [#/Vol] 0-2 [facility] WBC LM.HPF (Urine sed) [#/Area] 11-30 Abnormal [facility] A negative leukocyte esterase AND negative nitrite test or absence of pyuria (urine WBC count <= 5-10) make a UTI (urinary tract infection) very unlikely in a non-neutropenic adult (<=5% likelihood in many studies). A positive leukocyte esterase, nitrite and/or pyuria is a nonspecific result. This can be seen in conditions other than a UTI e.g. asymptomatic bacteriuria, gynecologic infections, sexually transmitted infections, and noninfectious conditions (positive predictive value for UTI around 50%) [facility] Glucose Ql (U) Negative Normal Negative [facility] Comment on above: Order Comment: A neg ative leukocyte esterase AND negative nitrite test or absence of pyuria (urine WBC count <= 5-10) make a UTI (urinary tract infection) very unlikely in a non-neutropenic adult (<=5% likelihood in many studies). A positive leukocyte esterase, nitrite and/or pyuria is a nonspecific result. This can be seen in conditions other than a UTI e.g. asymptomatic bacteriuria, gynecologic infections, sexually transmitted infections, and noninfectious conditions (positive predictive value for UTI around 50%) Performed By: #### u rinalysis ####S PATHOLOGY [id number] [place], Protein (U) [Mass/Vol] 20 mg/dL Normal Negative [facility] Comment on above: Order Comment: A neg ative leukocyte esterase AND negative nitrite test or absence of pyuria (urine WBC count <= 5-10) make a UTI (urinary tract infection) very unlikely in a non-neutropenic adult (<=5% likelihood in many studies). A positive leukocyte esterase, nitrite and/or pyuria is a nonspecific result. This can be seen in conditions other than a UTI e.g. asymptomatic bacteriuria, gynecologic infections, sexually transmitted infections, and noninfectious conditions (positive predictive value for UTI around 50%) Performed By: #### u rinalysis ####S PATHOLOGY [id number] [place], SQUAMOUS EPITHELIAL 0-2 Normal 0-10 [facility] Comment on above: Order Comment: A neg ative leukocyte esterase AND negative nitrite test or absence of pyuria (urine WBC count <= 5-10) make a UTI (urinary tract infection) very unlikely in a non-neutropenic adult (<=5% likelihood in many studies). A positive leukocyte esterase, nitrite and/or pyuria is a nonspecific result. This can be seen in conditions other than a UTI e.g. asymptomatic bacteriuria, gynecologic infections, sexually transmitted infections, and noninfectious conditions (positive predictive value for UTI around 50%) Performed By: #### u rinalysis ####S PATHOLOGY [id number] [place], [place], U APPEAR Turbid Normal Clear [facility] Comment on above: Order Comment: A neg ative leukocyte esterase AND negative nitrite test or absence of pyuria (urine WBC count <= 5-10) make a UTI (urinary tract infection) very unlikely in a non-neutropenic adult (<=5% likelihood in many studies). A positive leukocyte esterase, nitrite and/or pyuria is a nonspecific result. This can be seen in conditions other than a UTI e.g. asymptomatic bacteriuria, gynecologic infections, sexually transmitted infections, and noninfectious conditions (positive predictive value for UTI around 50%) Performed By: #### u rinalysis ####[facility] PATHOLOGY [id number] [place], [place] BILI Negative Normal Negative [facility] [employer] [facility] Comment on above: Order Comment: A neg ative leukocyte esterase AND negative nitrite test or absence of pyuria (urine WBC count <= 5-10) make a UTI (urinary tract infection) very unlikely in a non-neutropenic adult (<=5% likelihood in many studies). A positive leukocyte esterase, nitrite and/or pyuria is a nonspecific result. This can be seen in conditions other than a UTI e.g. asymptomatic bacteriuria, gynecologic infections, sexually transmitted infections, and noninfectious conditions (positive predictive value for UTI around 50%) Performed By: #### u rinalysis ####[facility] PATHOLOGY [id number] [place], [place] BLOOD Negative Normal Negative [facility] [employer] [facility] Comment on above: Order Comment: A neg ative leukocyte esterase AND negative nitrite test or absence of pyuria (urine WBC count <= 5-10) make a UTI (urinary tract infection) very unlikely in a non-neutropenic adult (<=5% likelihood in many studies). A positive leukocyte esterase, nitrite and/or pyuria is a nonspecific result. This can be seen in conditions other than a UTI e.g. asymptomatic bacteriuria, gynecologic infections, sexually transmitted infections, and noninfectious conditions (positive predictive value for UTI around 50%) Performed By: #### u rinalysis ####[facility] PATHOLOGY [id number] [place], U COLOR Light Yellow Normal Colorless [facility] Comment on above: Order Comment: A neg ative leukocyte esterase AND negative nitrite test or absence of pyuria (urine WBC count <= 5-10) make a UTI (urinary tract infection) very unlikely in a non-neutropenic adult (<=5% likelihood in many studies). A positive leukocyte esterase, nitrite and/or pyuria is a nonspecific result. This can be seen in conditions other than a UTI e.g. asymptomatic bacteriuria, gynecologic infections, sexually transmitted infections, and noninfectious conditions (positive predictive value for UTI around 50%) Performed By: #### u rinalysis ####[facility] PATHOLOGY [id number] [place], [place] KETONE Negative Normal Negative [facility] Comment on above: Order Comment: A neg ative leukocyte esterase AND negative nitrite test or absence of pyuria (urine WBC count <= 5-10) make a UTI (urinary tract infection) very unlikely in a non-neutropenic adult (<=5% likelihood in many studies). A positive leukocyte esterase, nitrite and/or pyuria is a nonspecific result. This can be seen in conditions other than a UTI e.g. asymptomatic bacteriuria, gynecologic infections, sexually transmitted infections, and noninfectious conditions (positive predictive value for UTI around 50%) Performed By: #### u rinalysis ####[facility] PATHOLOGY [id number] [place], [place] LEUK Positive Abnormal Negative [facility] Comment on above: Order Comment: A neg ative leukocyte esterase AND negative nitrite test or absence of pyuria (urine WBC count <= 5-10) make a UTI (urinary tract infection) very unlikely in a non-neutropenic adult (<=5% likelihood in many studies). A positive leukocyte esterase, nitrite and/or pyuria is a nonspecific result. This can be seen in conditions other than a UTI e.g. asymptomatic bacteriuria, gynecologic infections, sexually transmitted infections, and noninfectious conditions (positive predictive value for UTI around 50%) Result Comment: Norm al urine specimens will not produce a positive reaction. Small amounts of leukocyte esterase, causing a positive reaction should be repeated, using a fresh urine specimen, from the same patient. Positive results require further testing for pyuria. Performed By: #### u rinalysis ####[facility] PATHOLOGY [id number] [place], [place] MUCOUS Present Normal [facility] Comment on above: Order Comment: A neg ative leukocyte esterase AND negative nitrite test or absence of pyuria (urine WBC count <= 5-10) make a UTI (urinary tract infection) very unlikely in a non-neutropenic adult (<=5% likelihood in many studies). A positive leukocyte esterase, nitrite and/or pyuria is a nonspecific result. This can be seen in conditions other than a UTI e.g. asymptomatic bacteriuria, gynecologic infections, sexually transmitted infections, and noninfectious conditions (positive predictive value for UTI around 50%) Performed By: #### u rinalysis ####[facility] PATHOLOGY [id number] [place], [place] NITRITE Negative Normal Negative [facility] [employer] [facility] Comment on above: Order Comment: A neg ative leukocyte esterase AND negative nitrite test or absence of pyuria (urine WBC count <= 5-10) make a UTI (urinary tract infection) very unlikely in a non-neutropenic adult (<=5% likelihood in many studies). A positive leukocyte esterase, nitrite and/or pyuria is a nonspecific result. This can be seen in conditions other than a UTI e.g. asymptomatic bacteriuria, gynecologic infections, sexually transmitted infections, and noninfectious conditions (positive predictive value for UTI around 50%) Performed By: #### u rinalysis ####[facility] PATHOLOGY [id number] [place], [place] PH 6.0 Normal 5.0-8.[address] [facility] Comment on above: Order Comment: A neg ative leukocyte esterase AND negative nitrite test or absence of pyuria (urine WBC count <= 5-10) make a UTI (urinary tract infection) very unlikely in a non-neutropenic adult (<=5% likelihood in many studies). A positive leukocyte esterase, nitrite and/or pyuria is a nonspecific result. This can be seen in conditions other than a UTI e.g. asymptomatic bacteriuria, gynecologic infections, sexually transmitted infections, and noninfectious conditions (positive predictive value for UTI around 50%) Performed By: #### u rinalysis ####[facility] PATHOLOGY [id number] [place], [place] RBC 0-2 Normal 0-[address] [facility] Comment on above: Order Comment: A neg ative leukocyte esterase AND negative nitrite test or absence of pyuria (urine WBC count <= 5-10) make a UTI (urinary tract infection) very unlikely in a non-neutropenic adult (<=5% likelihood in many studies). A positive leukocyte esterase, nitrite and/or pyuria is a nonspecific result. This can be seen in conditions other than a UTI e.g. asymptomatic bacteriuria, gynecologic infections, sexually transmitted infections, and noninfectious conditions (positive predictive value for UTI around 50%) Performed By: #### u rinalysis ####[facility] PATHOLOGY [id number] [place], [place] SG 1.018 Normal <=1.[address] [facility] Comment on above: Order Comment: A neg ative leukocyte esterase AND negative nitrite test or absence of pyuria (urine WBC count <= 5-10) make a UTI (urinary tract infection) very unlikely in a non-neutropenic adult (<=5% likelihood in many studies). A positive leukocyte esterase, nitrite and/or pyuria is a nonspecific result. This can be seen in conditions other than a UTI e.g. asymptomatic bacteriuria, gynecologic infections, sexually transmitted infections, and noninfectious conditions (positive predictive value for UTI around 50%) Performed By: #### u rinalysis ####S PATHOLOGY [id number] [place], [place] UROBILI Negative Normal Negative [facility] Comment on above: Order Comment: A neg ative leukocyte esterase AND negative nitrite test or absence of pyuria (urine WBC count <= 5-10) make a UTI (urinary tract infection) very unlikely in a non-neutropenic adult (<=5% likelihood in many studies). A positive leukocyte esterase, nitrite and/or pyuria is a nonspecific result. This can be seen in conditions other than a UTI e.g. asymptomatic bacteriuria, gynecologic infections, sexually transmitted infections, and noninfectious conditions (positive predictive value for UTI around 50%) Performed By: #### u rinalysis ####[facility] PATHOLOGY [id number] [place], U WBC 11-30 Abnormal 0-2 [facility] Comment on above: Order Comment: A neg ative leukocyte esterase AND negative nitrite test or absence of pyuria (urine WBC count <= 5-10) make a UTI (urinary tract infection) very unlikely in a non-neutropenic adult (<=5% likelihood in many studies). A positive leukocyte esterase, nitrite and/or pyuria is a nonspecific result. This can be seen in conditions other than a UTI e.g. asymptomatic bacteriuria, gynecologic infections, sexually transmitted infections, and noninfectious conditions (positive predictive value for UTI around 50%) Performed By: #### u rinalysis ####[facility] PATHOLOGY [id number] [place], XR Chest Single Viewon 08-12 XR Chest Single View Exam Date/Time: 08/12/2023 16:39 EDT Reason for Exam: Altered Mental Status;Other (please specify) Report IMPRESSION: LEFT BASILAR ATELECTASIS. CLINICAL HISTORY: Altered Mental Status. Confusion. COMPARISON: 06/30/2023. COMMENT: AP portable. The heart is normal in size. There is calcification at the aortic arch. The mediastinum is unremarkable. There is streaky atelectatic densities at the left lung base. No consolidated airspace opacification nor pleural effusion is evident. There are metallic bilateral glenohumeral shoulder implants. Ordering Provider: Aurea Pichardo FINAL REPORT Dictated: 08/13/2023 7:51 am Joseph Jian M.D. Signed (Electronic Signature): 08/13/2023 7:51 am Signed by: Joseph Jain M.D. Transcribed by: BRENDA Technologist: MIKE Technical Comments Radiation Dose: Ka,r in mGy = na DAP = na Normal [facility] BASIC METABOLIC PANELon Anion gap [Moles/Vol] 11 mmol/L Normal 10-20 [facility] Comment on above: Performed By: #### C H8, ETOH ####[facility] PATHOLOGY [id number] [place], Calcium [Mass/Vol] 8.8 mg/dL Normal 8.6-10.3 [facility] Comment on above: Performed By: #### C H8, ETOH ####[facility] PATHOLOGY [id number] [place], Chloride [Moles/Vol] 106 mmol/L Normal 98-107 [facility] Comment on above: Performed By: #### C H8, ETOH ####[facility] PATHOLOGY [id number] [place], CO2 [Moles/Vol] 25 mmol/L Normal 21-31 [facility] Comment on above: Performed By: #### C H8, ETOH ####[facility] PATHOLOGY [id number] [place], Creatinine [Mass/Vol] 0.73 mg/dL Normal 0.60-1.20 [facility] Comment on above: Performed By: #### C H8, ETOH ####[facility] PATHOLOGY [id number] [place], ESTIMATED GFR (CKD-EPI) 81 mL/min/1.73sqm Normal >=60 [facility] Comment on above: Result Comment: 2020 CKD EPI Equation using Creatinine without RaceComment: Estimated glomerular filtration rate (eGFR) is calculated without a race coefficient. Values should be interpreted in the context of the patient's full clinical presentation.Reference:1. Nestor C, Isabella M, Kaz FUENTES, et al.. A Unifying Approach for GFR Estimation: Recommendations of the NKF-ASN Task Force on Reassessing the Inclusion of Race in Diagnosing Kidney Disease. [place] Journal of Kidney Diseases 2021;79(2):268-88.e1.2. N Engl J Med 2020 Vol. 385 Issue 19 Pages 4947-0849 Performed By: #### C H8, ETOH ####[facility] PATHOLOGY [id number] [place], Glucose [Mass/Vol] 91 mg/dL Normal 74-[address] [facility] Comment on above: Performed By: #### Jr Jung8, ETOH ####S PATHOLOGY [id number] [place], Potassium [Moles/Vol] 4.1 mmol/L Normal 3.5-5.[address] [facility] Comment on above: Performed By: #### Jr Jung8, ETOH ####[facility] PATHOLOGY [id number] [place], Sodium [Moles/Vol] 138 mmol/L Normal 136-[address] [facility] Comment on above: Performed By: #### Jr Jung8, ETOH ####S PATHOLOGY [id number] [place], Urea nitrogen [Mass/Vol] 21 mg/dL Normal 7-[address] [facility] Comment on above: Performed By: #### Jr Jung8, ETOH ####S PATHOLOGY [id number] [place], [place], BMPon 08-12-2023 Anion gap [Moles/Vol] 12 mmol/L Normal 6-16 [facility] Comment on above: Performed By: #### 2 [id number] #### [facility] [address] [place] [address] Calcium [Mass/Vol] 9.1 mg/dL Normal 8.9-11.1 [facility] Comment on above: Performed By: #### 2 [id number] #### [facility] [address] [place] [address] Chloride [Moles/Vol] 102 mmol/L Normal 101-111 [facility] Comment on above: Performed By: #### 2 [id number] #### [facility] [address] [place] [address] CO2 [Moles/Vol] 24 mmol/L Normal 21-31 [facility] Comment on above: Performed By: #### 2 [id number] #### [facility] [address] [place] [address] Creatinine [Mass/Vol] 0.8 mg/dL Normal 0.5-1.3 [facility] Comment on above: Performed By: #### 2 [id number] #### [facility] [address] [place] [address] Glucose [Mass/Vol] 149 mg/dL Normal 55-199 [facility] Comment on above: Performed By: #### 2 [id number] #### [facility] [address] [place] [address] Potassium [Moles/Vol] 3.8 mmol/L Normal 3.5-5.3 [facility] Comment on above: Performed By: #### 2 [id number] #### [facility] [address] [place] [address] Sodium [Moles/Vol] 134 mmol/L Low 135-145 [facility] Comment on above: Performed By: #### 2 [id number] #### [facility] [address] [place] [address] Urea nitrogen [Mass/Vol] 24 mg/dL High 5-21 [facility] Comment on above: Performed By: #### 2 [id number] #### [facility] [address] [place] [address] Urea nitrogen/Creatinine [Mass ratio] 30 No Units High 10-20 [facility] Comment on above: Performed By: #### 2 [id number] #### [facility] [address] [place] [address] Basic metabolic 2000 panelon 08-12-2023 Anion gap [Moles/Vol] 11 mmol/L 10 - 20 [facility] Calcium [Mass/Vol] 8.8 mg/dL 8.6 - 10. 3 mg/dL [facility] Chloride [Moles/Vol] 106 mmol/L 98 - 10 7 mmol/L [facility] CO2 [Moles/Vol] 25 mmol/L 21 - 31 mmol/L [facility] Creatinine [Mass/Vol] 0.73 mg/dL 0.60 - 1.20 mg/dL [facility] GFR/1.73 sq M.predicted CKD-EPI (S/P/Bld) [Vol rate/Area] 81 - PINF [facility] Comment on above: 2020 CKD EPI Equatio n using Creatinine without Race Comment: Estimated glomerular filtration rate (eGFR) is calculated without a race coefficient. Values should be interpreted in the context of the patient's full clinical presentation. Reference: 1. Nestor Norris, Isabella M, Kaz FUENTES, et al.. A Unifying Approach for GFR Estimation: Recommendations of the NKF-ASN Task Force on Reassessing the Inclusion of Race in Diagnosing Kidney Disease. [place] Journal of Kidney Diseases 2021;79(2):268-88.e1. 2. N Engl J Med 2020 Vol. 385 Issue 19 Pages 2336-9643 Glucose [Mass/Vol] 91 mg/dL 74 - 109 mg/dL [facility] Potassium [Moles/Vol] 4.1 mmol/L 3.5 - 5.0 mmol/L [facility] Sodium [Moles/Vol] 138 mmol/L 136 - 145 mmol/L [facility] Urea nitrogen [Mass/Vol] 21 mg/dL 7 - 25 mg/dL [facility] CBC WITH DIFFERENTIALOrdered By: Mary White on 08-12-2023 Basophils (Bld) [#/Vol] 0.05 10*3/uL 0.00 - 0.20 K/uL [facility] Basophils/100 WBC (Bld) 0.5 % NINF - 1.9 % [facility] Eosinophils (Bld) [#/Vol] 0.20 10*3/uL 0.00 - 0.70 K/uL [facility] Eosinophils/100 WBC (Bld) 2.2 % 0.1 - 4.0 % [facility] Erythrocyte distribution width (RBC) [Ratio] 14.2 % 11.5 - 14.5 % [facility] Hematocrit (Bld) [Volume fraction] 29.5 % Low 36.0 - 46.0 % [facility] Hemoglobin (Bld) [Mass/Vol] 10.0 g/dL Low 12.0 - 15.0 g/dL [facility] Interpretation and review of laboratory results Abnormal [facility] Lymphocytes (Bld) [#/Vol] 0.96 10*3/uL Low 1.00 - 4.80 K/uL [facility] Lymphocytes/100 WBC (Bld) 10.6 % Low 24.0 - 44.0 % [facility] MCH (RBC) [Entitic mass] 30.8 pg 26.0 - 34.0 pg [facility] MCHC (RBC) [Mass/Vol] 33.7 g/dL 32.0 - 35.9 g/dL [facility] MCV (RBC) [Entitic vol] 91 fL 80 - 100 fL [facility] Monocyte distribution width Auto (Bld) [Entitic vol] 23 High NINF - 20 [facility] Monocytes (Bld) [#/Vol] 0.56 10*3/uL 0.20 - 1.00 K/uL [facility] Monocytes/100 WBC (Bld) 6.2 % 2.0 - 11.0 % [facility] Neutrophils (Bld) [#/Vol] 7.27 10*3/uL 1.50 - 8.00 K/uL [facility] Neutrophils/100 WBC (Bld) 80.6 % High 31.0 - 76.0 % [facility] Platelet mean volume (Bld) [Entitic vol] 6.9 fL Low 7.5 - 11.2 fL [facility] Platelets (Bld) [#/Vol] 272 10*3/uL 150 - 400 K/uL [facility] RBC (Bld) [#/Vol] 3.23 10*6/uL Low [facility] WBC (Bld) [#/Vol] 9.0 10*3/uL 4.5 - 11.5 K/uL [facility] CBC WITH DIFFERENTIALon 06-0 2-2023 Basophils (Bld) [#/Vol] 0.05 10*3/uL Normal 0.00-0.20 [facility] Comment on above: Performed By: #### C BCDSAT ####S PATHOLOGY [id number] [place], Basophils/100 WBC (Bld) 0.5 % Normal <=1.9 [facility] Comment on above: Performed By: #### C BCDSAT ####S PATHOLOGY [id number] [place], Eosinophils (Bld) [#/Vol] 0.20 10*3/uL Normal 0.00-0.70 [facility] Comment on above: Performed By: #### C BCDSAT ####[facility] PATHOLOGY [id number] [place], Eosinophils/100 WBC (Bld) 2.2 % Normal 0.1-4.0 [facility] Comment on above: Performed By: #### C BCDSAT ####[facility] PATHOLOGY [id number] [place], Erythrocyte distribution width (RBC) [Ratio] 14.2 % Normal 11.5-14.5 [facility] Comment on above: Performed By: #### C BCDSAT ####[facility] PATHOLOGY [id number] [place], Hematocrit (Bld) [Volume fraction] 29.5 % Low 36.0-46.0 [facility] Comment on above: Performed By: #### C BCDSAT ####[facility] PATHOLOGY [id number] [place], Hemoglobin (Bld) [Mass/Vol] 10.0 g/dL Low 12.0-15.0 [facility] Comment on above: Performed By: #### C BCDSAT ####[facility] PATHOLOGY [id number] [place], Lymphocytes (Bld) [#/Vol] 0.96 10*3/uL Low 1.00-4.80 [facility] Comment on above: Performed By: #### C BCDSAT ####[facility] PATHOLOGY [id number] [place], Lymphocytes/100 WBC (Bld) 10.6 % Low 24.0-44.0 [facility] Comment on above: Performed By: #### C BCDSAT ####[facility] PATHOLOGY [id number] [place], MCH (RBC) [Entitic mass] 30.8 pg Normal 26.0-34.0 [facility] Comment on above: Performed By: #### C BCDSAT ####[facility] PATHOLOGY [id number] [place], MCHC (RBC) [Mass/Vol] 33.7 g/dL Normal 32.0-35.9 [facility] Comment on above: Performed By: #### C BCDSAT ####[facility] [id number] [place], [place], MCV (RBC) [Entitic vol] 91 fL Normal 80-100 [facility] Comment on above: Performed By: #### C BCDSAT ####[facility] [id number] [place], [place], MONOCYTE DISTRIBUTION WIDTH 23 High <=20 [facility] Comment on above: Performed By: #### C BCDSAT ####[facility] [id number] [place], [place], Monocytes (Bld) [#/Vol] 0.56 10*3/uL Normal 0.20-1.00 [facility] Comment on above: Performed By: #### C BCDSAT ####[facility] [id number] [place], [place], Monocytes/100 WBC (Bld) 6.2 % Normal 2.0-11.0 [facility] Comment on above: Performed By: #### C BCDSAT ####[facility] [id number] [place], [place], Neutrophils (Bld) [#/Vol] 7.27 10*3/uL Normal 1.50-8.00 [facility] Comment on above: Performed By: #### C BCDSAT ####[facility] [id number] [place], Neutrophils/100 WBC (Bld) 80.6 % High 31.0-76.0 [facility] Comment on above: Performed By: #### C BCDSAT ####[facility] [id number] [place], [place], Platelet mean volume (Bld) [Entitic vol] 6.9 fL Low 7.5-11.2 [facility] Comment on above: Performed By: #### C BCDSAT ####[facility] [id number] [place], [place], Platelets (Bld) [#/Vol] 272 10*3/uL Normal 150-400 [facility] Comment on above: Performed By: #### C BCDSAT ####[facility] [id number] [place], RBC (Bld) [#/Vol] 3.23 10*6/uL Low 4.00-5.20 [facility] Comment on above: Performed By: #### C BCDSAT ####[facility] [id number] [place], WBC (Bld) [#/Vol] 9.0 10*3/uL Normal 4.5-11.5 [facility] Comment on above: Performed By: #### C BCDSAT ####[facility] [id number] [place], [place], CBC w/ Auto Diffon 4 Basophils/100 WBC (Bld) 0.5 % Normal 0.0-2.0 [facility] Comment on above: Performed By: #### 2 [id number] #### [facility] [address] [place] [address] Basophils/Leukocytes Auto (Bld) [Pure # fraction] 0.0 E9/L Normal 0.0-0.2 [facility] Comment on above: Performed By: #### 2 [id number] #### [facility] [address] [place] [address] Eosinophils (Bld) [#/Vol] 0.2 E9/L Normal 0.0-0.5 [facility] Comment on above: Performed By: #### 2 [id number] #### [facility] [address] [place] [address] Eosinophils/100 WBC (Bld) 2.5 % Normal 0.0-8.0 [facility] Comment on above: Performed By: #### 2 [id number] #### [facility] [address] [place] [address] Erythrocyte distribution width (RBC) [Ratio] 14.5 % High 10.9-14.2 [facility] Comment on above: Performed By: #### 2 [id number] #### [facility] [address] [place] [address] Hematocrit (Bld) [Volume fraction] 30.1 % Low 34.0-46.0 [facility] Comment on above: Performed By: #### 2 [id number] #### [facility] [address] [place] [address] Hemoglobin (Bld) [Mass/Vol] 10.0 g/dL Low 12.0-16.0 [facility] Comment on above: Performed By: #### 2 [id number] #### [facility] [address] [place] [address] Lymphocytes (Bld) [#/Vol] 0.8 E9/L Low 1.0-4.0 [facility] Comment on above: Performed By: #### 2 [id number] #### [facility] [address] [place] [address] Lymphocytes/100 WBC (Bld) 9.0 % Low 14.0-50.0 [facility] Comment on above: Performed By: #### 2 [id number] #### [facility] [address] [place] [address] MCH (RBC) [Entitic mass] 30.0 pg Normal 27.0-34.0 [facility] Comment on above: Performed By: #### 2 [id number] #### [facility] [address] [place] [address] MCHC (RBC) [Mass/Vol] 33.1 g/dL Normal 31.4-36.0 [facility] Comment on above: Performed By: #### 2 [id number] #### [facility] [address] [place] [address] MCV (RBC) [Entitic vol] 90.4 fL Normal 80.0-100.0 [facility] Comment on above: Performed By: #### 2 [id number] #### [facility] [address] [place] [address] Monocytes (Bld) [#/Vol] 0.7 E9/L Normal 0.2-1.0 [facility] Comment on above: Performed By: #### 2 [id number] #### [facility] [address] [place] [address] Neutrophils (Bld) [#/Vol] 7.0 E9/L Normal 2.0-7.5 [facility] Comment on above: Performed By: #### 2 [id number] #### [facility] [address] [place] [address] Neutrophils/100 WBC (Bld) 80.3 % High 36.0-75.0 [facility] Comment on above: Performed By: #### 2 [id number] #### [facility] [address] [place] [address] Platelet mean volume (Bld) [Entitic vol] 6.8 fL Normal 6.4-10.8 [facility] Comment on above: Performed By: #### 2 [id number] #### [facility] [address] [place] [address] Platelets (Bld) [#/Vol] 303.0 E9/L Normal 150.0-500. 0 [facility] Comment on above: Performed By: #### 2 [id number] #### [facility] [address] [place] [address] RBC (Bld) [#/Vol] 3.3 E12/L Low 4.3-5.9 [facility] Comment on above: Performed By: #### 2 [id number] #### [facility] [address] [place] [address] WBC corrected for nucl RBC Auto (Bld) [#/Vol] 8.8 E9/L Normal 4.0-11.0 [facility] Comment on above: Performed By: #### 2 [id number] #### [facility] [address] [place] [address] CHEMISTRYOrdered By: SYSTEM SYSTEM on 08-12-2023 Albumin [Mass/Vol] 3.5 g/dL Normal 3.3 - 5.0 gm/dL [facility] Albumin/Globulin [Mass ratio] 1.1 {ratio} Normal 1.1 - 2.2 [facility] ALP [Catalytic activity/Vol] 58 [iU]/d Normal 21 - 98 Int._Unit/ L [facility] ALT No additional P-5'-P [Catalytic activity/Vol] 11 [iU]/d Normal 6 - 46 Int._Unit/ L [facility] Anion gap [Moles/Vol] 12 mmol/L Normal 6 - 16 mEq/L [facility] AST [Catalytic activity/Vol] 14 [iU]/d Normal 5 - 43 Int._Unit/ L [facility] Bilirubin [Mass/Vol] 0.4 mg/dL Normal 0.0 - 1 .1 mg/dL [facility] Bilirubin.direct [Mass/Vol] 0.1 mg/dL Normal 0.0 - 0.4 mg/dL [facility] Bilirubin.indirect [Mass or moles/Vol] 0.3 mg/dL Normal 0.1 - 0.9 mg/dL [facility] Calcium [Mass/Vol] 9.1 mg/dL Normal 8.9 - 11. 1 mg/dL [facility] Chloride [Moles/Vol] 102 mmol/L Normal 101 - 1 11 mmol/L [facility] CO2 [Moles/Vol] 24 mmol/L Normal 21 - 31 mmol/L [facility] Creatinine [Mass/Vol] 0.8 mg/dL Normal 0.5 - 1.3 mg/dL [facility] eGFR 73 mL/min/1.73 m2 Normal >=59mL/min /1.73 m2 [facility] Globulin (S) [Mass/Vol] 3.1 g/dL Normal 1.4 - 4.0 gm/dL [facility] Glucose [Mass/Vol] 149 mg/dL Normal 55 - 199 mg/dL [facility] Potassium [Moles/Vol] 3.8 mmol/L Normal 3.5 - 5.3 mmol/L [facility] Protein [Mass/Vol] 6.6 g/dL Normal 6.0 - 7.8 gm/dL [facility] Sodium [Moles/Vol] 134 mmol/L Low 135 - 145 mmol/L [facility] Troponin HS 5.10 pg/mL Low 10.10 - 27.10 pg/mL [facility] Comment on above: Interpretive Data: T he 95% CI (Confidence Interval) PPV (Positive Predictive Value) for myocardial infarction in females is 38 pg/mL, in males 51 pg/mL. The results should be used in conjunction with clinical conditions of myocardial infarction. (Access High Sensitivity Troponin I Instructions For Use, Raegan VSporto, October 2017) Urea nitrogen [Mass/Vol] 24 mg/dL High 5 - 21 mg/dL [facility] Urea nitrogen/Creatinine [Mass ratio] 30 mg/mg High 10 - 20 [facility] CHEMISTRYOrdered By: Lab ROP User on 08-12-2023 Glucose [Mass/Vol] 133 mg/dL High 55 - 99 mg/dL [facility] Comment on above: Result Comment: Denice kimberly Meter POC Device SN [id number] 1 Invalid Interpretation Code [facility] Subsection POC User ID [id number] 1 Invalid Interpretation Code [facility] Subsection POC Username GAVINO GALARZA Invalid Interpretation Code [facility] Subsection CT HEAD W/O CONTRASTon 08-11 CT HEAD W/O CONTRAST Normal [facility] [employer] [facility] CT Head WO contrastOrdered B y: Allan Lawrence on 08-12-2023 CT DLP 1144.1 (mGy.cm) [facility] Work Phone: CT Series Head [facility] Work Phone: CTDI VOL 62.0 (mGy) [facility] Work Phone: PHANTOM TYPE IEC Head [facility] Work Phone: [facility] Work Phone: CT Head WO contraston 2023 EXAMINATION: CT HEAD W/O CONTRAST 08/12/2023 11:02 PM CLINICAL HISTORY: repeat head CT for stability of SDH ASSOCIATED DIAGNOSIS: repeat head CT for stability of SDH ORDERING PROVIDER: [employer] NOTE: COMPARISON: CT HEAD W/O CONTRAST 07/29/2023, 10:[address] NEURO IMAGE IMPORT(MICHELLE) 08/12/2023, 4:42 PM TECHNIQUE: Thin axial imaging of the head was performed without intravenous contrast. FINDINGS: Mixed density left hemispheric subdural hematoma measuring up to 2.2 cm at greatest thickness with mass effect upon the underlying brain parenchyma with resultant 1.2 cm left to right midline shift. There is left uncal perching with right lateral ventricular entrapment. Expected evolution of left frontal lobe intraparenchymal hemorrhage. 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 The skull, paranasal sinuses and tympanomastoid cavities are normal. IMPRESSION: Mixed density left hemispheric subdural hematoma measuring up to 2.2 cm at greatest thickness with increased mass effect upon the underlying brain parenchyma and resultant 1.2 cm left to right midline shift. Right lateral ventricular entrapment. MACRO: None RADIOLOGY Allan Lawrence MD - 08/12/2023 EXAMINATION: CT HEAD W/O CONTRAST 08/12/2023 11:02 PM CLINICAL HISTORY: repeat head CT for stability of SDH ASSOCIATED DIAGNOSIS: repeat head CT for stability of SDH ORDERING PROVIDER: [employer] NOTE: COMPARISON: CT HEAD W/O CONTRAST 07/29/2023, 10:[address] NEURO IMAGE IMPORT(MICHELLE) 08/12/2023, 4:42 PM TECHNIQUE: Thin axial imaging of the head was performed without intravenous contrast. FINDINGS: Mixed density left hemispheric subdural hematoma measuring up to 2.2 cm at greatest thickness with mass effect upon the underlying brain parenchyma with resultant 1.2 cm left to right midline shift. There is left uncal perching with right lateral ventricular entrapment. Expected evolution of left frontal lobe intraparenchymal hemorrhage. 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 The skull, paranasal sinuses and tympanomastoid cavities are normal. IMPRESSION: Mixed density left hemispheric subdural hematoma measuring up to 2.2 cm at greatest thickness with increased mass effect upon the underlying brain parenchyma and resultant 1.2 cm left to right midline shift. Right lateral ventricular entrapment. MACRO: None [facility] Radiology Study observation (narrative) [facility] Capillary Glucose POCon Glucose [Mass/Vol] 133 mg/dL High 55-99 [facility] Comment on above: Result Comment: Denice harris Meter Performed By: #### 2 [id number] #### [facility] [address] [place] [address] Consent for Treatmenton Consent for Treatment [id number] Normal [facility] ED Clinical Summaryon 2023 ED Clinical Summary (Inserted Image. Candi ble to display) [place] [id number] ED Clinical Summary Person Information Name: CARLY MARCELINO [place] Age: 83 Years : 1940 Sex: Female Language: Martiniquais PCP: HARDEEP MCKENZIE DO Marital Status: Phone: [phone] Visit Id: Visit Reason: Altered mental status; ams Speciality: Acuity: 2 Enc Type: Emergency Med Service: Emergency Arrival: 08/12/2023 15:56:20 Discharge: 08/12/2023 18:42:01 LOS: 000 02:46 Checkin: 08/12/2023 15:56:20 Checkout: 08/12/2023 18:42:01 Dispo Type: Short-Term Hosp as IP EVENTS: Event Name Event Status Request Date/Time Start Date/Time Complete Date/Time Arrive Complete 08/12/2023 15:56:20 08/12/2023 15:56:20 08/12/2023 15:56:20 Document Home Meds Request 08/12/2023 15:56:20 Triage Complete 08/12/2023 15:56:20 08/12/2023 16:08:46 08/12/2023 16:08:46 Bed Assign Complete 08/12/2023 15:56:20 08/12/2023 15:56:20 08/12/2023 15:56:20 Dr Exam Complete 08/12/2023 15:56:20 08/12/2023 16:04:28 08/12/2023 16:04:28 RN Exam Complete 08/12/2023 15:56:20 08/12/2023 16:13:49 08/12/2023 16:13:49 Pending Labs Complete 08/12/2023 16:04:02 08/12/2023 16:04:02 08/12/2023 16:04:03 Registration Complete 08/12/2023 16:04:28 08/12/2023 17:02:41 08/12/2023 17:02:41 EKG Complete 08/12/2023 16:05:35 08/12/2023 16:13:35 Fall Risk Request 08/12/2023 16:13:49 X-Ray Complete 08/12/2023 16:14:24 08/12/2023 16:14:54 08/12/2023 16:39:50 Meds Admin Request 08/12/2023 16:14:24 Pending Labs Request 08/12/2023 16:14:24 Lab Complete 08/12/2023 16:14:24 08/12/2023 17:32:31 RT Request 08/12/2023 16:14:24 CT Complete 08/12/2023 16:27:04 08/12/2023 16:29:28 08/12/2023 16:43:47 Pending Labs Complete 08/12/2023 16:37:37 08/12/2023 16:37:37 08/12/2023 17:32:31 Lab Complete 08/12/2023 16:37:37 08/12/2023 16:37:37 08/12/2023 17:32:31 Wet Read Request 08/12/2023 16:39:50 Reg Complete Request 08/12/2023 17:02:41 Reg Bed Request Complete 08/12/2023 17:02:41 08/12/2023 17:02:41 08/12/2023 17:02:41 Patient Care Request 08/12/2023 17:04:49 Transfer Complete 08/12/2023 17:04:49 08/12/2023 18:42:12 08/12/2023 18:42:12 Meds Admin Request 08/12/2023 17:08:52 Pending Labs Complete 08/12/2023 17:13:50 08/12/2023 17:13:50 08/12/2023 17:13:51 Pending Labs Complete 08/12/2023 17:16:04 08/12/2023 17:16:04 08/12/2023 17:16:04 Dr Exam Complete 08/12/2023 17:32:23 08/12/2023 17:32:23 08/12/2023 17:32:23 Registration Request 08/12/2023 17:32:23 Dr Exam Complete 08/12/2023 18:37:10 08/12/2023 18:37:10 08/12/2023 18:37:10 Discharge Complete 08/12/2023 18:42:12 08/12/2023 18:42:12 08/12/2023 18:42:12 ADDRESS: [address] [place] [phone] PHYS DOC NOTES: MEDICAL INFORMATION: Prescriptions Given: Medications to Continue with No Changes Other Medications acetaminophen (acetaminophen 325 mg Tab) 2 Tablets By Mouth every 6 hours as needed Pain. albuterol (Albuterol (Eqv-ProAir HFA) 90 mcg/inh inhalation aerosol) 2 Puffs Inhalation every 6 hours as needed Wheezing. Refills: 0. aspirin (aspirin 81 mg Chew Tab) 1 Tablets By Mouth every day. baclofen 5 Milligram By Mouth at bedtime. 1/2 of a 10 mg tab. cetirizine (Zyrtec) 10 Milligram By Mouth every day as needed Allergy symptoms. famotidine (famotidine 40 mg Tab) 1 Tablets By Mouth every day. Refills: 0. ferrous sulfate (ferrous sulfate 325 mg Tab) 1 Tablets By Mouth every day. Refills: 0. Fish Oil 1 Capsules By Mouth at bedtime. gabapentin (gabapentin 300 mg Cap) 1 Capsules By Mouth 3 times a day. guaifenesin (Mucinex 600 mg Tab-ER) 2 Tablets By Mouth 2 times a day. Refills: 0. levetiracetam (Keppra) 500 Milligram at bedtime. losartan (losartan 50 mg Tab) 1 Tablets By Mouth every day. Refills: 0. magnesium oxide (magnesium oxide 400 mg Tab) 1 Tablets By Mouth at bedtime. metoprolol (Metoprolol tartrate 25 mg Tab) 0.5 Tablets By Mouth 2 times a day. Refills: 0. montelukast (montelukast 10 mg Tab) 1 Tablets By Mouth every day. multivitamin with minerals (Multivitamins and Minerals oral tablet) PATIENT EDUCATION INFORMATION: Instructions: Follow up: DIAGNOSIS: Acute on chronic intracranial subdural hematoma; Altered mental status; Nontraumatic chronic subdural hemorrhage Normal [facility] ED Clinical Summary (Inserted Image. Candi ble to display) [address] [address] ED Clinical Summary Person Information Name: CARLY MARCELINO[place] Age: 83 Years : 1940 Sex: Female Language: Martiniquais PCP: HARDEEP MCKENZIE DO Marital Status: Phone: [phone] Visit Id: Visit Reason: Altered mental status; ams Speciality: Acuity: 2 Enc Type: Emergency Med Service: Emergency Arrival: 08/12/2023 15:56:20 Discharge: LOS: 000 01:23 Checkin: 08/12/2023 15:56:20 Checkout: Dispo Type: EVENTS: Event Name Event Status Request Date/Time Start Date/Time Complete Date/Time Arrive Complete 08/12/2023 15:56:20 08/12/2023 15:56:20 08/12/2023 15:56:20 Document Home Meds Request 08/12/2023 15:56:20 Triage Complete 08/12/2023 15:56:20 08/12/2023 16:08:46 08/12/2023 16:08:46 Bed Assign Complete 08/12/2023 15:56:20 08/12/2023 15:56:20 08/12/2023 15:56:20 Dr Exam Complete 08/12/2023 15:56:20 08/12/2023 16:04:28 08/12/2023 16:04:28 RN Exam Complete 08/12/2023 15:56:20 08/12/2023 16:13:49 08/12/2023 16:13:49 Pending Labs Complete 08/12/2023 16:04:02 08/12/2023 16:04:02 08/12/2023 16:04:03 Registration Complete 08/12/2023 16:04:28 08/12/2023 17:02:41 08/12/2023 17:02:41 EKG Complete 08/12/2023 16:05:35 08/12/2023 16:13:35 Fall Risk Request 08/12/2023 16:13:49 X-Ray Complete 08/12/2023 16:14:24 08/12/2023 16:14:54 08/12/2023 16:39:50 Meds Admin Request 08/12/2023 16:14:24 Pending Labs Request 08/12/2023 16:14:24 Lab Inlab 08/12/2023 16:14:24 RT Request 08/12/2023 16:14:24 CT Complete 08/12/2023 16:27:04 08/12/2023 16:29:28 08/12/2023 16:43:47 Pending Labs Inlab 08/12/2023 16:37:37 08/12/2023 16:37:37 Lab Inlab 08/12/2023 16:37:37 08/12/2023 16:37:37 Wet Read Request 08/12/2023 16:39:50 Reg Complete Request 08/12/2023 17:02:41 Reg Bed Request Complete 08/12/2023 17:02:41 08/12/2023 17:02:41 08/12/2023 17:02:41 Patient Care Request 08/12/2023 17:04:49 Transfer Request 08/12/2023 17:04:49 Meds Admin Request 08/12/2023 17:08:52 Pending Labs Complete 08/12/2023 17:13:50 08/12/2023 17:13:50 08/12/2023 17:13:51 Pending Labs Complete 08/12/2023 17:16:04 08/12/2023 17:16:04 08/12/2023 17:16:04 ADDRESS: [address] [place] [phone] [facility] DOC NOTES: MEDICAL INFORMATION: Prescriptions Given: Medications to Continue with No Changes Other Medications acetaminophen (acetaminophen 325 mg Tab) 2 Tablets By Mouth every 6 hours as needed Pain. albuterol (Albuterol (Eqv-ProAir HFA) 90 mcg/inh inhalation aerosol) 2 Puffs Inhalation every 6 hours as needed Wheezing. Refills: 0. aspirin (aspirin 81 mg Chew Tab) 1 Tablets By Mouth every day. baclofen 5 Milligram By Mouth at bedtime. 1/2 of a 10 mg tab. cetirizine (Zyrtec) 10 Milligram By Mouth every day as needed Allergy symptoms. famotidine (famotidine 40 mg Tab) 1 Tablets By Mouth every day. Refills: 0. ferrous sulfate (ferrous sulfate 325 mg Tab) 1 Tablets By Mouth every day. Refills: 0. Fish Oil 1 Capsules By Mouth at bedtime. gabapentin (gabapentin 300 mg Cap) 1 Capsules By Mouth 3 times a day. guaifenesin (Mucinex 600 mg Tab-ER) 2 Tablets By Mouth 2 times a day. Refills: 0. levetiracetam (Keppra) 500 Milligram at bedtime. losartan (losartan 50 mg Tab) 1 Tablets By Mouth every day. Refills: 0. magnesium oxide (magnesium oxide 400 mg Tab) 1 Tablets By Mouth at bedtime. metoprolol (Metoprolol tartrate 25 mg Tab) 0.5 Tablets By Mouth 2 times a day. Refills: 0. montelukast (montelukast 10 mg Tab) 1 Tablets By Mouth every day. multivitamin with minerals (Multivitamins and Minerals oral tablet) PATIENT EDUCATION INFORMATION: Instructions: Follow up: DIAGNOSIS: Acute on chronic intracranial subdural hematoma; Altered mental status; Nontraumatic chronic subdural hemorrhage Normal [facility] ED Noteson 08-12-2023 Client Account Assistant Authentication Interface Message Text Pt transferred from [facility]; 83 yo female fall two weeks ago; family noticed change in mentation 08/09/23 and brought her back to [facility]; scans there showed midline shift of the brain Normal [facility] [employer] [facility] ED Patient Education Noteon 08-12-2023 ED Patient Education Note Normal [facility] ED Patient Education Note Normal [facility] ED Patient Summaryon 024 ED Patient Summary (Inserted Image. Candi ble to display) [place] [id number] Patient Discharge Instructions Person Information Name: CARLY MARCELINO Age: 83 Years Arrival Date: 08/12/2023 15:56:20 Discharge Diagnosis: Acute on chronic intracranial subdural hematoma; Altered mental status; Nontraumatic chronic subdural hemorrhage Primary Care Physician: HARDEEP MCKENZIE DO Provider Information Primary Provider: James Nguyen MD Advanced Patient Case Coordinator:Aurea Pichardo PA-C The exam and treatment you received in the Emergency Department were for an urgent problem and are not intended as complete care. It is important that you follow up with a doctor, nurse practitioner, or physician?s certified physician's assistant for ongoing care. If your symptoms become worse or you do not improve as expected and you are unable to reach your usual health care provider, you should return to the Emergency Department. We are available 24 hours a day. CHARI CARLY Carolyn has been given the following list of patient education materials, prescriptions and follow-up instructions: Follow-up Instructions: In the event that this physician does not participate in your insurance network, please consult with your insurance company to find a nearby participating provider. Patient Education Materials: A MESSAGE TO ALL PATIENTS REGARDING OPIOIDS PRESCRIPTION OPIOIDS: WHAT YOU NEED TO KNOW Prescription opioids can be used to help relieve [id number] pain and are often prescribed following a surgery or injury, or for certain health conditions. These medications can be an important part of the treatment but also come with serious risks. It is important to work with your healthcare provider to make sure you are getting the safest, most effective care. WHAT ARE THE RISKS AND SIDE EFFECTS OF OPIOID USE? Prescription opioids carry serious risks of addiction and overdose, especially with prolonged use. An opioid overdose, often marked by slowed breathing, can cause sudden . The use of prescription opioids can have a number of side effects as well, even when taken as directed: ? Tolerance?meaning you might need to take more of the medication for the same pain relief ? Physical dependence?meaning you have symptoms of withdrawal when a medication is stopped ? Increased sensitivity to pain ? Constipation ? Nausea, vomiting, and dry mouth ? Sleepiness and dizziness ? Confusion ? Depression ? Low levels of testosterone that can result in lower sex drive, energy, and strength ? Itching and sweating RISKS ARE GREATER WITH: ? History of drug misuse, substance use disorder, or overdose ? Mental health conditions (such as depression or anxiety) ? Sleep apnea ? Older age (65 years and older) ? Avoid alcohol while taking prescription opioids. Also, unless specifically advised by your health care provider, medications to avoid include: ? Benzodiazepines (such as Xanax or Valium) ? Muscle relaxants (such as Soma or Flexeril) ? Hypnotics (such as Ambien or Lunesta) ? Other prescription opioids KNOW YOUR OPTIONS Talk to your health care provider about ways to manage your pain that don?t involve prescription opioids. Some of these options may actually work better and have fewer risks and side effects. Options may include: ? Pain relievers such as acetaminophen, ibuprofen, and naproxen ? Some medication that are also used for depression or seizures ? Physical therapy and exercise ? Cognitive behavioral therapy, a psychological, goal-directed approach, in which patients learn how to modify physical, behavioral, and emotional triggers of pain and stress. IF YOU ARE PRESCRIBED OPIOIDS FOR PAIN: ? Never take opioids in greater amounts or more often than prescribed. ? Follow up with your primary health care provider. o Work together to create a plan on how to manage your pain. o Talk about ways to help manage your pain that don?t involve prescription opioids. o Talk about any and all concerns and side effects. ? Help prevent misuse and abuse o Never sell or share prescription opioids. o Never use another person?s prescription opioids. ? Store prescription opioids in a secure place and out of reach of others (this may include visitors, children, friends, and family). ? Safely dispose of unused prescription opioids: Find your community drug take-back program or your pharmacy mail-back program, or flush them down the toilet, following guidance from the Food and Drug Administration (www.fda.gov/Drugs/Resourc esForYou). ? Visit www.cdc.gov/drugoverdose to learn about the risks of opioids abuse and overdose. ? If you believe you may be struggling with addiction, tell your health care director and ask for guidance or call [facility] National Helpline at 0-968-782-EZBG. v Source: US Department of Health and Human Services/Center for Disease Control & Pre (more content not included)... Normal [facility] ED Patient Summary (Inserted Image. Candi ble to display) [address] [address] Patient Discharge Instructions Person Information Name: CARLY MARCELINO Age: 83 Years Arrival Date: 08/12/2023 15:56:20 Discharge Diagnosis: Acute on chronic intracranial subdural hematoma; Altered mental status; Nontraumatic chronic subdural hemorrhage Primary Care Physician: HARDEEP MCKENZIE DO Provider Information Primary Provider: Advanced Patient Case Coordinator:Aurea Pichardo PA-C The exam and treatment you received in the Emergency Department were for an urgent problem and are not intended as complete care. It is important that you follow up with a doctor, nurse practitioner, or physician?s certified physician's assistant for ongoing care. If your symptoms become worse or you do not improve as expected and you are unable to reach your usual health care provider, you should return to the Emergency Department. We are available 24 hours a day. NAHEED MARCELINOE Carolyn has been given the following list of patient education materials, prescriptions and follow-up instructions: Follow-up Instructions: In the event that this physician does not participate in your insurance network, please consult with your insurance company to find a nearby participating provider. Patient Education Materials: A MESSAGE TO ALL PATIENTS REGARDING OPIOIDS PRESCRIPTION OPIOIDS: WHAT YOU NEED TO KNOW Prescription opioids can be used to help relieve kyhukknn-oh-ruqmmf pain and are often prescribed following a surgery or injury, or for certain health conditions. These medications can be an important part of the treatment but also come with serious risks. It is important to work with your healthcare provider to make sure you are getting the safest, most effective care. WHAT ARE THE RISKS AND SIDE EFFECTS OF OPIOID USE? Prescription opioids carry serious risks of addiction and overdose, especially with prolonged use. An opioid overdose, often marked by slowed breathing, can cause sudden . The use of prescription opioids can have a number of side effects as well, even when taken as directed: ? Tolerance?meaning you might need to take more of the medication for the same pain relief ? Physical dependence?meaning you have symptoms of withdrawal when a medication is stopped ? Increased sensitivity to pain ? Constipation ? Nausea, vomiting, and dry mouth ? Sleepiness and dizziness ? Confusion ? Depression ? Low levels of testosterone that can result in lower sex drive, energy, and strength ? Itching and sweating RISKS ARE GREATER WITH: ? History of drug misuse, substance use disorder, or overdose ? Mental health conditions (such as depression or anxiety) ? Sleep apnea ? Older age (65 years and older) ? Avoid alcohol while taking prescription opioids. Also, unless specifically advised by your health care provider, medications to avoid include: ? Benzodiazepines (such as Xanax or Valium) ? Muscle relaxants (such as Soma or Flexeril) ? Hypnotics (such as Ambien or Lunesta) ? Other prescription opioids KNOW YOUR OPTIONS Talk to your health care provider about ways to manage your pain that don?t involve prescription opioids. Some of these options may actually work better and have fewer risks and side effects. Options may include: ? Pain relievers such as acetaminophen, ibuprofen, and naproxen ? Some medication that are also used for depression or seizures ? Physical therapy and exercise ? Cognitive behavioral therapy, a psychological, goal-directed approach, in which patients learn how to modify physical, behavioral, and emotional triggers of pain and stress. IF YOU ARE PRESCRIBED OPIOIDS FOR PAIN: ? Never take opioids in greater amounts or more often than prescribed. ? Follow up with your primary health care provider. o Work together to create a plan on how to manage your pain. o Talk about ways to help manage your pain that don?t involve prescription opioids. o Talk about any and all concerns and side effects. ? Help prevent misuse and abuse o Never sell or share prescription opioids. o Never use another person?s prescription opioids. ? Store prescription opioids in a secure place and out of reach of others (this may include visitors, children, friends, and family). ? Safely dispose of unused prescription opioids: Find your community drug take-back program or your pharmacy mail-back program, or flush them down the toilet, following guidance from the Food and Drug Administration (www.fda.gov/Drugs/Resourc esForYou). ? Visit www.cdc.gov/drugoverdose to learn about the risks of opioids abuse and overdose. ? If you believe you may be struggling with addiction, tell your health care director and ask for guidance or call [facility] National Helpline at 7-164-707-XSKW. v Source: US Department of Health and Human Services/Center for Disease Control & Prevention [place] (more content not included)... Normal [facility] ED Provider Noteson 08-12-19 Client Account Assistant Authentication Interface Message Text Normal [facility] Client Account Assistant Authentication Interface Message Text Normal [facility] EMS Documentationon 08-12-19 EMS Documentation Please click on link to see report Normal [facility] Comment on above: Result Comment: Miss ing Attachment - total size limit for all attachments exceeded [email or web address].pdf Can be viewed in source system ETHANOL, SERUMon 08-12-2023 Ethanol [Mass/Vol] mg/dL None Detected mg/dL [employer] Ethanol [Mass/Vol] mg/dL Normal None Detected [facility] [employer] [facility] Comment on above: Performed By: #### C H8, ETOH ####[facility] [id number] [place], [address] H AND Ezra 08-12-2023 Client Account Assistant Authentication Interface Message Text Normal [facility] [employer] [facility] HEMATOLOGYOrdered By: SYSTEM SYSTEM on 08-12-2023 Basophils/100 WBC (Bld) 0.5 % Normal 0.0 - 2.0 % Rem[facility] Basophils/Leukocytes Auto (Bld) [Pure # fraction] 0.0 E9/L Normal 0.0 - 0.2 E9/L [facility] Eosinophils (Bld) [#/Vol] 0.2 E9/L Normal 0.0 - 0.5 E9/L [facility] Eosinophils/100 WBC (Bld) 2.5 % Normal 0.0 - 8.0 % [facility] Erythrocyte distribution width (RBC) [Ratio] 14.5 % High 10.9 - 14.2 % [facility] Hematocrit (Bld) [Volume fraction] 30.1 % Low 34.0 - 46.0 % [facility] Hemoglobin (Bld) [Mass/Vol] 10.0 g/dL Low 12.0 - 16.0 gm/dL [facility] Lymphocytes (Bld) [#/Vol] 0.8 E9/L Low 1.0 - 4.0 E9/L [facility] Lymphocytes/100 WBC (Bld) 9.0 % Low 14.0 - 50.0 % [facility] MCH (RBC) [Entitic mass] 30.0 pg Normal 27.0 - 34.0 pg [facility] MCHC (RBC) [Mass/Vol] 33.1 g/dL Normal 31.4 - 36.0 gm/dL [facility] MCV (RBC) [Entitic vol] 90.4 fL Normal 80.0 - 100.0 fL [facility] Monocytes (Bld) [#/Vol] 0.7 E9/L Normal 0.2 - 1.0 E9/L [facility] Monocytes/100 WBC (Bld) 7.7 % Normal 4.0 - 14.0 % [facility] Neutrophils (Bld) [#/Vol] 7.0 E9/L Normal 2.0 - 7.5 E9/L [facility] Neutrophils/100 WBC (Bld) 80.3 % High 36.0 - 75.0 % [facility] Platelet mean volume (Bld) [Entitic vol] 6.8 fL Normal 6.4 - 10.8 fL [facility] Platelets (Bld) [#/Vol] 303.0 E9/L Normal 150.0 - 500.0 E9/L [facility] RBC (Bld) [#/Vol] 3.3 E12/L Low 4.3 - 5.9 E12/L [facility] WBC corrected for nucl RBC Auto (Bld) [#/Vol] 8.8 E9/L Normal 4.0 - 11.0 E9/L [facility] HIV 1 and 2 Ab and HIV 1 p24 Ag panel IAon 08-12-2023 HIV 1+2 Ab+HIV1 p24 Ag IA Ql Non-Reactive Non-Reacti ve [facility] Comment on above: No laboratory eviden ce for HIV Infection. Negative result does not rule out acute HIV infection. If acute HIV infection is suspected, recommend ordering an HIV-1 RNA quanitification test. Interpretation and review of laboratory results Normal [facility] HIV Information: [place] Rev. code 3701.243(E): This information has been disclosed to you from confidential records protected from disclosure by state law. You shall make no further disclosure of this information without the specific, written, and informed release of the individual to whom it pertains, or as otherwise permitted by state law. A general authorization for the release of medical or other information is not sufficient for the purpose of the release of HIV test results or diagnoses. [facility] HIV1 HIV2 AGAB SCRNon 2023 HIV AG-AB SCREEN Non-Reactive Normal Non-Reacti ve [facility] Comment on above: Order Comment: HIV I nformation: ???[place] Rev. code 3701.243(E):This information has been disclosed to you from confidential records protected from disclosure by state law. ???You shall make no further disclosure of this information without the specific, written, and informed release of the individual to whom it pertains, or as otherwise permitted by state law. ???A general authorization for the release of medical or other information is not sufficient for the purpose of the release of HIV test results or diagnoses. Result Comment: No l aboratory evidence for HIV Infection. Negative result does not rule out acute HIV infection. If acute HIV infection is suspected, recommend ordering an HIV-1 RNA quanitification test. Performed By: #### h iv1 hiv2 agab scrn ####[facility] [id number] [place], [address] Hep Func Panelon 08-12-2023 Albumin [Mass/Vol] 3.5 g/dL Normal 3.3-5.0 [facility] Comment on above: Performed By: #### 2 [id number] #### [facility] [address] [place] [address] Albumin/Globulin (S) [Mass conc ratio] 1.1 Normal 1.1-2.2 [facility] Comment on above: Performed By: #### 2 [id number] #### [facility] [address] [place] [address] ALP [Catalytic activity/Vol] 58 Int._Unit/L Normal 21-98 [facility] Comment on above: Performed By: #### 2 [id number] #### [facility] [address] [place] [address] ALT No additional P-5'-P [Catalytic activity/Vol] 11 Int._Unit/L Normal 6-46 [facility] Comment on above: Performed By: #### 2 [id number] #### [facility] [address] [place] [address] AST [Catalytic activity/Vol] 14 Int._Unit/L Normal 5-43 [facility] Comment on above: Performed By: #### 2 [id number] #### [facility] [address] [place] [address] Bilirubin [Mass/Vol] 0.4 mg/dL Normal 0.0-1.1 [facility] Comment on above: Performed By: #### 2 [id number] #### [facility] [address] [place] [address] Bilirubin.direct [Mass/Vol] 0.1 mg/dL Normal 0.0-0.4 [facility] Comment on above: Performed By: #### 2 [id number] #### [facility] [address] [place] [address] Bilirubin.indirect [Mass or moles/Vol] 0.3 mg/dL Normal 0.1-0.9 [facility] Comment on above: Performed By: #### 2 [id number] #### [facility] [address] [place] [address] Globulin (S) [Mass/Vol] 3.1 g/dL Normal 1.4-4.0 [facility] Comment on above: Performed By: #### 2 [id number] #### [facility] [address] [place] [address] Protein [Mass/Vol] 6.6 g/dL Normal 6.0-7.8 [facility] Comment on above: Performed By: #### 2 [id number] #### [facility] [address] [place] [address] LACTIC ACIDOrdered By: Saul Miller on 08-12-2023 Interpretation and review of laboratory results Normal [facility] Lactate [Moles/Vol] 1.0 mmol/L 0.5 - 1. 6 mmol/L [facility] LACTIC ACIDon 08-12-2023 CR LACT 1.0 mmol/L Normal 0.5-1.6 [facility] Comment on above: Performed By: #### L ACT ####[facility] [id number] [place], [address] Laboratory - Blood bankon ABO and Rh group Nom (Bld) Blood group A Rh(D) positive [facility] Monitor Recordon 08-12-2023 Monitor Record [id number] Normal [facility] No Panel Informationon 08-11 Interpretation and review of laboratory results Normal [facility] Outside Recordson 08-12-2023 Outside Records [id number] Normal [facility] PROTHROMBIN TIME AND INROrde red By: Antonia Kauffman on 08-12-2023 INR Coag (PPP) [Relative time] [facility] Comment on above: CLOT This is a corrected result. Previous result on 08/12/2023 at 2019 EDT was 0.96 PT Coag (PPP) [Time] [facility] Comment on above: CLOT This is a corrected result. Previous result on 08/12/2023 at 2019 EDT was 10.7 sec [facility] PROTHROMBIN TIME AND INRon 0 08-12-2023 INR Normal 0.90-1.10 [facility] Comment on above: Result Comment: CLOT This is a corrected result. Previous result on 08/12/2023 at 2019 EDT was 0.96 Performed By: #### P T ####[facility] [id number] [place], [place], PROTIME Normal 9.7-12.9 [facility] Comment on above: Result Comment: CLOT This is a corrected result. Previous result on 08/12/2023 at 2019 EDT was 10.7 sec Performed By: #### P T ####[facility] [id number] [place], [place], Pre-Arrival Noteon Pre-Arrival Note Pre-Arrival Summary Name: , jimmy Current Date: 08/12/2023 15:56:55 EDT Gender: Female Date of : Age: 83 Pre-Arrival Type: EMS ETA: 08/12/2023 16:10:00 EDT Primary Care Physician: Presenting Problem: ams Pre-Arrival User: Herbert Brock RN Referring Source: Location: [place] Completion Date/Time: 08/12/2023 15:41:00 [facility] Emergency Department Pre-Hospital Report Form _ Vital Signs: Pre-Hospital Report:more confused than normal, hx subdural 2-3 wks ago, hx cva Treatment in Route: Response to Treatment: Misc. Issues: Normal [facility] Progress Note-Physicianon Progress Note-Physician Trauma brief note Patient with recent fall on 07/28 had a left SDH and was transferred to [facility]. She presents again today with increasing confusion. Normally A&O x 3, now is oriented only to self. Repeat head CT demonstrates acute on chronic SDH with midline shift. Takes ASA and has been on prophylactic dose lovenox, but no other blood thinners. Reviewed imaging and discussed with ED. Recommend 3% saline and transfer to [facility] for NSGY evaluation, +/- craniotomy, likely MMA embolization. Informed [facility] director of curriculum and instruction trauma surgeon, Dr. Omalley. Normal [facility] Comment on above: Result Comment: Elec tronically Signed By: Nash VICTOR, Pauline Whitley\.br\Date and Time Signed: 08/12/23 17:36 EDT Progress Noteson 08-12-2023 Client Account Assistant Authentication Interface Message Text Normal [facility] TYPE AND SCREENon 08-12-2023 Blood group antibody screen Ql Negative [facility] ABO and Rh group Nom (Bld) Blood group A Rh(D) positive Normal [facility] Comment on above: Performed By: #### T S ####S PATHOLOGY [id number] [place], [place], ABSC INT Negative Normal [facility] Comment on above: Performed By: #### T S ####S PATHOLOGY [id number] [place], [place], Transfer Documentson 024 Transfer Documents [id number] Normal [facility] Troponin 0 Hr.on 08-12-2023 Troponin HS 5.10 pg/mL Low 10.10-27.1 0 [facility] Comment on above: Result Comment: The 95% CI (Confidence Interval) PPV (Positive Predictive Value) for myocardial infarction in females is 38 pg/mL, in males 51 pg/mL. The results should be used in conjunction with clinical conditions of myocardial infarction. (Access High Sensitivity Troponin I Instructions For Use, Raegan Gregory, October 2017) Performed By: #### 1 [id number] #### [facility] [address] [place] [address] eGFRon 08-12-2023 eGFR 73 mL/min/1.73 m2 Normal >=59 [facility] Comment on above: Order Comment: Order added by Discern Expert. Performed By: #### 1 [id number] #### [facility] [address] [place] [address] Telephone Encounteron 2023 Client Account Assistant Authentication Interface Message Text Normal [facility] [employer] [facility] Client Account Assistant Authentication Interface Message Text Normal [facility] Basophils Auto (Bld) [#/Vol] on 08-08-2023 Basophils (Bld) [#/Vol] 0.0 10 3/uL 0.0-0.1 [facility] Basophils/100 WBC Auto (Bld) on 08-08-2023 Basophils/100 WBC (Bld) 0.6 % 0.2-2.0 [facility] Eosinophils/100 WBC Auto (Bl d)on 08-08-2023 Eosinophils/100 WBC (Bld) 3.9 % 0.9-7.0 [facility] Erythrocyte distribution wid th Auto (RBC) [Ratio]on 08-08-2023 Erythrocyte distribution width (RBC) [Ratio] 14.3 % 11.0-15.0 [facility] Estimated glomerular filtrat ion rate (GFR) non- Americanon 08-08-2023 GFR/1.73 sq M.predicted among non-blacks MDRD (S/P/Bld) [Vol rate/Area] mL/min/{1.73_m2} >=60 [facility] Globulin Calc (S) [Mass/Vol] on 08-08-2023 Globulin (S) [Mass/Vol] 3.7 g/dL [facility] Glucose mean value [Mass/vol ume] in Blood Estimated from glycated hemoglobinon 08-08-2023 Average glucose Estimated from glycated hemoglobin (Bld) [Mass/Vol] 97 mg/dL [facility] Hematocrit Auto (Bld) [Volum e fraction]on 08-08-2023 Hematocrit (Bld) [Volume fraction] 27.6 % 36.0-48.0 [facility] Hemoglobin [Mass/volume] in Bloodon 08-08-2023 Hemoglobin (Bld) [Mass/Vol] 8.7 g/dL 12.0-16.0 [facility] Laboratory - Chemistry and C hemistry - challengeon 08-08-2023 Albumin [Mass/Vol] 2.7 g/dL 3.4-5.0 [facility] ALP [Catalytic activity/Vol] 72 U/L 46-116 [facility] ALT [Catalytic activity/Vol] 27 U/L 14-59 [facility] AST [Catalytic activity/Vol] 21 U/L 15-37 [facility] Bilirubin [Mass/Vol] 0.5 mg/dL 0.2-1.0 [facility] Calcium [Mass/Vol] 8.8 mg/dL 8.5-10.1 [facility] Chloride [Moles/Vol] 102 mmol/L 98-107 [facility] CO2 [Moles/Vol] 31.7 mmol/L 21.0-32.0 [facility] Creatinine [Mass/Vol] 0.82 mg/dL 0.55-1.02 [facility] GFR/1.73 sq M.predicted MDRD (S/P/Bld) [Vol rate/Area] mL/min/{1.73_m2} >=60 [facility] Glucose [Mass/Vol] 83 mg/dL 74-106 [facility] Magnesium [Mass/Vol] 1.8 mg/dL 1.8-2.4 [facility] Potassium [Moles/Vol] 4.0 mmol/L 3.5-5.1 [facility] Protein [Mass/Vol] 6.4 g/dL 6.4-8.2 [facility] Sodium [Moles/Vol] 137 mmol/L 136-145 [facility] TSH Qn 4.268 m[IU]/L 0.358-3.74 0 [facility] Urea nitrogen [Mass/Vol] 14.0 mg/dL 7.0-18.0 [facility] Urea nitrogen/Creatinine [Mass ratio] 17.1 mg/mg [facility] Laboratory - Hematology and Cell countson 08-08-2023 HbA1c (Bld) [Mass fraction] 5.0 % 4.5-6.2 [facility] Comment on above: ADA RECOMMENDED LIMI T 4.0 - 6.0ADA THERAPEUTIC TARGET < 7.0ACTION SUGGESTED> 7.0 Immature granulocytes/100 WBC (Bld) 1.0 % 0.0-0.5 [facility] Leukocytes [#/volume] correc jamila for nucleated erythrocytes in Blood by Automated counon 08-08-2023 WBC corrected for nucl RBC Auto (Bld) [#/Vol] 7.3 10 3/uL 4.0-11.0 [facility] Lymphocytes Auto (Bld) [#/Vo l]on 08-08-2023 Lymphocytes (Bld) [#/Vol] 1.0 10 3/uL 1.2-3.8 [facility] Lymphocytes/100 WBC Auto (Bl d)on 08-08-2023 Lymphocytes/100 WBC (Bld) 13.1 % 20.5-60.0 [facility] MCH Auto (RBC) [Entitic mass ]on 08-08-2023 MCH (RBC) [Entitic mass] 29.9 pg 26.7-34.0 [facility] MCHC Auto (RBC) [Mass/Vol]on 08-08-2023 MCHC (RBC) [Mass/Vol] 31.5 g/dL 29.9-35.2 [facility] MCV Auto (RBC) [Entitic vol] on 08-08-2023 MCV (RBC) [Entitic vol] 94.8 fL 81.0-99.0 [facility] Monocytes Auto (Bld) [#/Vol] on 08-08-2023 Monocytes (Bld) [#/Vol] 0.7 10 3/uL 0.3-0.8 [facility] Monocytes/100 WBC Auto (Bld) on 08-08-2023 Monocytes/100 WBC (Bld) 9.9 % 1.7-12.0 [facility] Neutrophils Auto (Bld) [#/Vo l]on 08-08-2023 Neutrophils (Bld) [#/Vol] 5.2 10 3/uL 1.4-6.5 [facility] Neutrophils/100 WBC Auto (Bl d)on 08-08-2023 Neutrophils/100 WBC (Bld) 71.5 % 43.0-75.0 [facility] No Panel Informationon 08-07 25-Hydroxy Vitamin D Total 38.6 ng/mL [facility] Comment on above: <20 ng/mL Vit D defi cient20-<30 ng/mL Vit D [id number] ng/mL Vit D sufficient>100 ng/mL Potential Toxicity Eosinophils # (Auto) 0.3 10 3/uL 0.0-0.7 [facility] Immature Granulocyte # (Auto) 0.07 10 3/uL 0.00-0.03 [facility] Levetiracetam (Keppra) Level 20.3 ug/mL 10.0-40.0 [facility] Comment on above: Performed at: [address] [id number] Director: Jamie Klein MD, Phone: [phone] Platelet mean volume Auto (B ld) [Entitic vol]on 08-08-2023 Platelet mean volume (Bld) [Entitic vol] 9.2 fL 9.5-13.5 [facility] Platelets Auto (Bld) [#/Vol] on 08-08-2023 Platelets (Bld) [#/Vol] 284 10 3/uL 150-450 [facility] RBC Auto (Bld) [#/Vol]on RBC (Bld) [#/Vol] 2.91 10 6/uL 4.20-5.40 [facility] Serum or plasma albumin/glob ulin mass ratioon 08-08-2023 Albumin/Globulin [Mass ratio] 0.7 {ratio} [facility] Serum or plasma anion gap de terminationon 08-08-2023 Anion gap [Moles/Vol] 7.3 mmol/L [facility] Care Plan Noteon 08-04-2023 Client Account Assistant Authentication Interface Message Text Normal [facility] Progress Noteson 08-04-2023 Client Account Assistant Authentication Interface Message Text Response to coding query Midline shift noted from SDH is related to brain compression directly related to trauma/collection of blood products Nyasia Pope MD Normal [facility] BASIC METABOLIC PANELon 05-2 Anion gap [Moles/Vol] 11 mmol/L Normal 10-20 [facility] Comment on above: Performed By: #### C H8, MG, PHOS ####[facility] [id number] [place], [place], Calcium [Mass/Vol] 8.3 mg/dL Low 8.6-10.3 [facility] Comment on above: Performed By: #### C H8, MG, PHOS ####[facility] [id number] [place], [place], Chloride [Moles/Vol] 102 mmol/L Normal 98-107 [facility] Comment on above: Performed By: #### C H8, MG, PHOS ####[facility] [id number] [place], CO2 [Moles/Vol] 27 mmol/L Normal 21-31 [facility] Comment on above: Performed By: #### C H8, MG, PHOS ####[facility] [id number] [place], Creatinine [Mass/Vol] 0.71 mg/dL Normal 0.60-1.20 [facility] Comment on above: Performed By: #### C H8, MG, PHOS ####[facility] [id number] [place], [place], ESTIMATED GFR (CKD-EPI) 84 mL/min/1.73sqm Normal >=60 [facility] Comment on above: Result Comment: 2020 CKD EPI Equation using Creatinine without RaceComment: Estimated glomerular filtration rate (eGFR) is calculated without a race coefficient. Values should be interpreted in the context of the patient's full clinical presentation.Reference:1. Nestor Norris, Isabella M, Kaz FUENTES, et al.. A Unifying Approach for GFR Estimation: Recommendations of the NKF-ASN Task Force on Reassessing the Inclusion of Race in Diagnosing Kidney Disease. [place] Journal of Kidney Diseases 2021;79(2):268-88.e1.2. N Engl J Med 2020 Vol. 385 Issue 19 Pages 5479-6678 Performed By: #### MG Mims PHOS ####[facility] [id number] [place], Glucose [Mass/Vol] 100 mg/dL Normal 74-109 [facility] Comment on above: Performed By: #### MG Prasanna, PHOS ####[facility] PATHOLOG[facility] [id number] [place], Potassium [Moles/Vol] 4.3 mmol/L Normal 3.5-5.0 [facility] Comment on above: Performed By: #### MG Prasanna, ANNIES ####[facility] PATHOLOGY [id number] [place], Sodium [Moles/Vol] 136 mmol/L Normal 136-145 [facility] Comment on above: Performed By: #### MG Prasanna, ANNIES ####[facility] PATHOLOGY [id number] [place], Urea nitrogen [Mass/Vol] 18 mg/dL Normal 7-25 [facility] Comment on above: Performed By: #### MG Prasanna, ANNIES ####[facility] PATHOLOGY [id number] [place], [place], Basic metabolic 2000 panelon 08-03-2023 Anion gap [Moles/Vol] 11 mmol/L 10 - 20 [facility] Calcium [Mass/Vol] 8.3 mg/dL Low 8.6 - 10. 3 mg/dL [facility] Chloride [Moles/Vol] 102 mmol/L 98 - 10 7 mmol/L [facility] CO2 [Moles/Vol] 27 mmol/L 21 - 31 mmol/L [facility] Creatinine [Mass/Vol] 0.71 mg/dL 0.60 - 1.20 mg/dL [facility] GFR/1.73 sq M.predicted CKD-EPI (S/P/Bld) [Vol rate/Area] 84 - PINF [facility] Comment on above: 2020 CKD EPI Equatio n using Creatinine without Race Comment: Estimated glomerular filtration rate (eGFR) is calculated without a race coefficient. Values should be interpreted in the context of the patient's full clinical presentation. Reference: 1. Nestor C, Isabella M, Kaz FUENTES, et al.. A Unifying Approach for GFR Estimation: Recommendations of the NKF-ASN Task Force on Reassessing the Inclusion of Race in Diagnosing Kidney Disease. [place] Journal of Kidney Diseases 2021;79(2):268-88.e1. 2. N Engl J Med 1 Vol. 385 Issue 19 Pages 0782-5352 Glucose [Mass/Vol] 100 mg/dL 74 - 109 mg/dL [facility] Interpretation and review of laboratory results Abnormal [facility] Potassium [Moles/Vol] 4.3 mmol/L 3.5 - 5.0 mmol/L [facility] Sodium [Moles/Vol] 136 mmol/L 136 - 145 mmol/L [facility] Urea nitrogen [Mass/Vol] 18 mg/dL 7 - 25 mg/dL [facility] CBC panel Auto (Bld)on 08-02 Erythrocyte distribution width (RBC) [Ratio] 14.4 % 11.5 - 14.5 % [facility] Hematocrit (Bld) [Volume fraction] 26.4 % Low 36.0 - 46.0 % [facility] Hemoglobin (Bld) [Mass/Vol] 8.9 g/dL Low 12.0 - 15.0 g/dL [facility] Interpretation and review of laboratory results Abnormal [facility] MCH (RBC) [Entitic mass] 30.9 pg 26.0 - 34.0 pg [facility] MCHC (RBC) [Mass/Vol] 33.8 g/dL 32.0 - 35.9 g/dL [facility] MCV (RBC) [Entitic vol] 92 fL 80 - 100 fL [facility] Platelet mean volume (Bld) [Entitic vol] 7.8 fL 7.5 - 11.2 fL [facility] Platelets (Bld) [#/Vol] 225 10*3/uL 150 - 400 K/uL [facility] RBC (Bld) [#/Vol] 2.89 10*6/uL Low [facility] WBC (Bld) [#/Vol] 7.7 10*3/uL 4.5 - 11.5 K/uL [facility] COMPLETE BLOOD COUNTon 08-02 Erythrocyte distribution width (RBC) [Ratio] 14.4 % Normal 11.5-14.5 [facility] Comment on above: Performed By: #### C BC ####[facility] PATHOLOGY [id number] [place], Hematocrit (Bld) [Volume fraction] 26.4 % Low 36.0-46.0 [facility] Comment on above: Performed By: #### C BC ####[facility] PATHOLOGY [id number] [place] [address], Hemoglobin (Bld) [Mass/Vol] 8.9 g/dL Low 12.0-15.0 [facility] Comment on above: Performed By: #### C BC ####[facility] PATHOLOGY [id number] [place] [address], MCH (RBC) [Entitic mass] 30.9 pg Normal 26.0-34.0 [facility] Comment on above: Performed By: #### C BC ####[facility] PATHOLOGY [id number] [place] [address], MCHC (RBC) [Mass/Vol] 33.8 g/dL Normal 32.0-35.9 [facility] Comment on above: Performed By: #### C BC ####[facility] PATHOLOGY [id number] [place] [address], MCV (RBC) [Entitic vol] 92 fL Normal 80-100 [facility] Comment on above: Performed By: #### C BC ####[facility] PATHOLOGY [id number] [place] [address], Platelet mean volume (Bld) [Entitic vol] 7.8 fL Normal 7.5-11.2 [facility] Comment on above: Performed By: #### C BC ####[facility] PATHOLOGY [id number] [place] [address], Platelets (Bld) [#/Vol] 225 10*3/uL Normal 150-400 [facility] Comment on above: Performed By: #### C BC ####[facility] PATHOLOG[facility] [id number] [place], RBC (Bld) [#/Vol] 2.89 10*6/uL Low 4.00-5.20 [facility] Comment on above: Performed By: #### C BC ####[facility] PATHOLOG[facility] [id number] [place], WBC (Bld) [#/Vol] 7.7 10*3/uL Normal 4.5-11.5 [facility] Comment on above: Performed By: #### C BC ####[facility] PATHOLOG[facility] [id number] [place], Care Plan Noteon 08-03-2023 Client Account Assistant Authentication Interface Message Text Normal [facility] Client Account Assistant Authentication Interface Message Text Normal [facility] Consultson 08-03-2023 Client Account Assistant Authentication Interface Message Text Normal [facility] Client Account Assistant Authentication Interface Message Text Normal [facility] Discharge Planning Noteon Client Account Assistant Authentication Interface Message Text Normal [facility] Goldenrodon 08-03-2023 Client Account Assistant Authentication Interface Message Text Normal [facility] MAGNESIUMon 08-03-2023 Magnesium [Mass/Vol] 2.2 mg/dL 1.9 - 2 .7 mg/dL [facility] Magnesium [Mass/Vol] 2.2 mg/dL Normal 1.9-2.7 [facility] Comment on above: Performed By: #### C H8, MG, PHOS ####[facility] PATHOLOGY [id number] [place], No Panel Informationon 08-02 Interpretation and review of laboratory results Normal [facility] PHOSPHORUSon 08-03-2023 Phosphate [Mass/Vol] 2.7 mg/dL 2.5 - 5 .0 mg/dL [facility] Phosphate [Mass/Vol] 2.7 mg/dL Normal 2.5-5.0 [facility] Comment on above: Performed By: #### C H8, MG, PHOS ####[facility] PATHOLOGY [id number] [place], Progress Noteson 08-03-2023 Client Account Assistant Authentication Interface Message Text Normal [facility] Client Account Assistant Authentication Interface Message Text Normal [facility] BASIC METABOLIC PANELon 05-2 Anion gap [Moles/Vol] 12 mmol/L Normal 10-[address] [facility] Comment on above: Performed By: #### C H8, VITB12, PHOS, MG, TSH HS ####S PATHOLOGY [id number] [place], Calcium [Mass/Vol] 8.2 mg/dL Low 8.6-10.[address] [facility] Comment on above: Performed By: #### C H8, VITB12, PHOS, MG, TSH HS ####S PATHOLOGY [id number] [place], Chloride [Moles/Vol] 102 mmol/L Normal 98-[address] [facility] Comment on above: Performed By: #### C H8, VITB12, PHOS, MG, TSH HS ####[facility] PATHOLOGY [id number] [place], CO2 [Moles/Vol] 26 mmol/L Normal 21-[address] [facility] Comment on above: Performed By: #### C H8, VITB12, PHOS, MG, TSH HS ####S PATHOLOGY [id number] [place], Creatinine [Mass/Vol] 0.73 mg/dL Normal 0.60-1.[address] [facility] Comment on above: Performed By: #### C H8, VITB12, PHOS, MG, TSH HS ####S PATHOLOGY [id number] [place], ESTIMATED GFR (CKD-EPI) 81 mL/min/1.73sqm Normal >=60 [facility] Comment on above: Result Comment: 2020 CKD EPI Equation using Creatinine without RaceComment: Estimated glomerular filtration rate (eGFR) is calculated without a race coefficient. Values should be interpreted in the context of the patient's full clinical presentation.Reference:1. Nestor Norris, Isabella M, Kaz FUENTES, et al.. A Unifying Approach for GFR Estimation: Recommendations of the NKF-ASN Task Force on Reassessing the Inclusion of Race in Diagnosing Kidney Disease. [place] Journal of Kidney Diseases 2021;79(2):268-88.e1.2. N Engl J Med 1 Vol. 385 Issue 19 Pages [phone] Performed By: #### C H8, VITB12, PHOS, MG, TSH HS ####[facility] PATHOLOGY [id number] [place], Glucose [Mass/Vol] 104 mg/dL Normal 74-109 [facility] Comment on above: Performed By: #### C H8, VITB12, PHOS, MG, TSH HS ####[facility] PATHOLOGY [id number] [place], Potassium [Moles/Vol] 4.2 mmol/L Normal 3.5-5.0 [facility] Comment on above: Performed By: #### C H8, VITB12, PHOS, MG, TSH HS ####[facility] PATHOLOGY [id number] [place], Sodium [Moles/Vol] 136 mmol/L Normal 136-145 [facility] Comment on above: Performed By: #### C H8, VITB12, PHOS, MG, TSH HS ####[facility] PATHOLOGY [id number] [place], Urea nitrogen [Mass/Vol] 17 mg/dL Normal 7-25 [facility] Comment on above: Performed By: #### C H8, VITB12, PHOS, MG, TSH HS ####S PATHOLOGY [id number] [place], Basic metabolic 2000 panelon 08-02-2023 Anion gap [Moles/Vol] 12 mmol/L 10 - 20 [facility] Calcium [Mass/Vol] 8.2 mg/dL Low 8.6 - 10. 3 mg/dL [facility] Chloride [Moles/Vol] 102 mmol/L 98 - 10 7 mmol/L [facility] CO2 [Moles/Vol] 26 mmol/L 21 - 31 mmol/L [facility] Creatinine [Mass/Vol] 0.73 mg/dL 0.60 - 1.20 mg/dL [facility] GFR/1.73 sq M.predicted CKD-EPI (S/P/Bld) [Vol rate/Area] 81 - PINF [facility] Comment on above: 2020 CKD EPI Equatio n using Creatinine without Race Comment: Estimated glomerular filtration rate (eGFR) is calculated without a race coefficient. Values should be interpreted in the context of the patient's full clinical presentation. Reference: 1. Nestor C, Isabella M, Kaz [place], et al.. A Unifying Approach for GFR Estimation: Recommendations of the NKF-ASN Task Force on Reassessing the Inclusion of Race in Diagnosing Kidney Disease. [place] Journal of Kidney Diseases 202;79(2):268-88.e1. 2. N Engl J Med 2020 Vol. 385 Issue 19 Pages 0606-6887 Glucose [Mass/Vol] 104 mg/dL 74 - 109 mg/dL [facility] Potassium [Moles/Vol] 4.2 mmol/L 3.5 - 5.0 mmol/L [facility] Sodium [Moles/Vol] 136 mmol/L 136 - 145 mmol/L [facility] Urea nitrogen [Mass/Vol] 17 mg/dL 7 - 25 mg/dL [facility] CBC panel Auto (Bld)on 08-01 Erythrocyte distribution width (RBC) [Ratio] 14.3 % 11.5 - 14.5 % [facility] Hematocrit (Bld) [Volume fraction] 30.5 % Low 36.0 - 46.0 % [facility] Hemoglobin (Bld) [Mass/Vol] 9.8 g/dL Low 12.0 - 15.0 g/dL [facility] Interpretation and review of laboratory results Abnormal [facility] MCH (RBC) [Entitic mass] 29.2 pg 26.0 - 34.0 pg [facility] MCHC (RBC) [Mass/Vol] 32.1 g/dL 32.0 - 35.9 g/dL [facility] MCV (RBC) [Entitic vol] 91 fL 80 - 100 fL [facility] Platelet mean volume (Bld) [Entitic vol] 7.3 fL Low 7.5 - 11.2 fL [facility] Platelets (Bld) [#/Vol] 237 10*3/uL 150 - 400 K/uL [facility] RBC (Bld) [#/Vol] 3.34 10*6/uL Low [facility] WBC (Bld) [#/Vol] 8.7 10*3/uL 4.5 - 11.5 K/uL [facility] COMPLETE BLOOD COUNTon 08-01 Erythrocyte distribution width (RBC) [Ratio] 14.3 % Normal 11.5-14.5 [facility] Comment on above: Performed By: #### C BC ####[facility] PATHOLOGY [id number] [place], Hematocrit (Bld) [Volume fraction] 30.5 % Low 36.0-46.0 [facility] Comment on above: Performed By: #### C BC ####[facility] PATHOLOGY [id number] [place], Hemoglobin (Bld) [Mass/Vol] 9.8 g/dL Low 12.0-15.0 [facility] Comment on above: Performed By: #### C BC ####[facility] PATHOLOGY [id number] [place], MCH (RBC) [Entitic mass] 29.2 pg Normal 26.0-34.0 [facility] Comment on above: Performed By: #### C BC ####[facility] PATHOLOGY [id number] [place], MCHC (RBC) [Mass/Vol] 32.1 g/dL Normal 32.0-35.9 [facility] Comment on above: Performed By: #### C BC ####[facility] PATHOLOGY [id number] [place], MCV (RBC) [Entitic vol] 91 fL Normal 80-100 [facility] Comment on above: Performed By: #### C BC ####[facility] PATHOLOGY [id number] [place], Platelet mean volume (Bld) [Entitic vol] 7.3 fL Low 7.5-11.2 [facility] Comment on above: Performed By: #### C BC ####[facility] PATHOLOGY [id number] [place], Platelets (Bld) [#/Vol] 237 10*3/uL Normal 150-400 [facility] Comment on above: Performed By: #### C BC ####[facility] PATHOLOGY [id number] [place], RBC (Bld) [#/Vol] 3.34 10*6/uL Low 4.00-5.20 [facility] Comment on above: Performed By: #### C BC ####S PATHOLOGY [id number] [place], WBC (Bld) [#/Vol] 8.7 10*3/uL Normal 4.5-11.5 [facility] Comment on above: Performed By: #### C BC ####S PATHOLOGY [id number] [place], Care Plan Noteon 08-02-2023 Client Account Assistant Authentication Interface Message Text Normal [facility] MAGNESIUMon 08-02-2023 Interpretation and review of laboratory results Normal [facility] Magnesium [Mass/Vol] 2.0 mg/dL 1.9 - 2 .7 mg/dL [facility] Magnesium [Mass/Vol] 2.0 mg/dL Normal 1.9-2.7 [facility] Comment on above: Performed By: #### C H8, VITB12, PHOS, MG, TSH HS ####[facility] PATHOLOGY [id number] [place], No Panel Informationon 08-01 Interpretation and review of laboratory results Abnormal [facility] PHOSPHORUSon 08-02-2023 Phosphate [Mass/Vol] 2.3 mg/dL Low 2.5 - 5 .0 mg/dL [facility] Phosphate [Mass/Vol] 2.3 mg/dL Low 2.5-5.0 [facility] Comment on above: Performed By: #### C H8, VITB12, PHOS, MG, TSH HS ####[facility] PATHOLOG[facility] [id number] [place], [place] Noteson 08-02-2023 Client Account Assistant Authentication Interface Message Text Normal [facility] TSHon 08-02-2023 Interpretation and review of laboratory results Normal [facility] TSH Qn 3.023 m[IU]/L [facility] Comment on above: Referance range for women as applicable: First Trimester: 0. 050 to 3.700 uIU/mL Second Trimester: 0. 310 to 4.350 uIU/mL Third Trimester: 0. 410 to 5.180 uIU/mL [facility] TSH 3.023 uIU/mL Normal 0.450-5.33 0 [facility] Comment on above: Result Comment: Refe noman range for women as applicable:First Trimester: 0. 050 to 3.700 uIU/mLSecond Trimester: 0. 310 to 4.350 uIU/mLThird Trimester: 0. 410 to 5.180 uIU/mL Performed By: #### C H8, VITB12, PHOS, MG, TSH HS ####[facility] PATHOLOG[facility] [id number] [place], VITAMIN B12 (CYANOCOBALAMIN) on 08-02-2023 Cobalamin (Vitamin B12) [Moles/Vol] 900 pg/mL 180 - 914 pg/mL [facility] Comment on above: Note Updated Referen ce Range. Interpretation and review of laboratory results Normal [facility] Deficient: <= 145 pg /mL Insufficient: 145 - 180 pg/mL Sufficient: 180 - 914 pg/mL [facility] Cobalamin (Vitamin B12) [Mass/Vol] 900 pg/mL Normal 180-914 [facility] Comment on above: Order Comment: Defic ient: <= 145 pg/mLInsufficient: 145 - 180 pg/mLSufficient: 180 - 914 pg/mL Result Comment: Note Updated Reference Range. Performed By: #### C H8, VITB12, PHOS, MG, TSH HS ####[facility] PATHOLOG[facility] [id number] [place], BASIC METABOLIC PANELon 07-11 Anion gap [Moles/Vol] 12 mmol/L Normal 10-20 [facility] Comment on above: Performed By: #### M G, CH8, PHOS ####[facility] PATHOLOGY [id number] [place], Calcium [Mass/Vol] 8.7 mg/dL Normal 8.6-10.3 [facility] Comment on above: Performed By: #### ALFIE Yoo, PHOS ####[facility] PATHOLOGY [id number] [place], Chloride [Moles/Vol] 104 mmol/L Normal 98-107 [facility] Comment on above: Performed By: #### ALFIE Yoo, PHOS ####[facility] PATHOLOGY [id number] [place], CO2 [Moles/Vol] 27 mmol/L Normal 21-31 [facility] Comment on above: Performed By: #### ALFIE Yoo, PHOS ####[facility] PATHOLOGY [id number] [place], Creatinine [Mass/Vol] 0.68 mg/dL Normal 0.60-1.20 [facility] Comment on above: Performed By: #### ALFIE Yoo, PHOS ####[facility] PATHOLOGY [id number] [place], Glucose [Mass/Vol] 93 mg/dL Normal 74-109 [facility] Comment on above: Performed By: #### ALFIE Yoo, PHOS ####[facility] PATHOLOGY [id number] [place], Potassium [Moles/Vol] 4.0 mmol/L Normal 3.5-5.0 [facility] Comment on above: Performed By: #### ALFIE Yoo, PHOS ####[facility] PATHOLOGY [id number] [place], Sodium [Moles/Vol] 139 mmol/L Normal 136-145 [facility] Comment on above: Performed By: #### ALFIE Yoo, PHOS ####[facility] PATHOLOGY [id number] [place], Urea nitrogen [Mass/Vol] 15 mg/dL Normal 7-25 [facility] Comment on above: Performed By: #### ALFIE Yoo, PHOS ####[facility] PATHOLOGY [id number] [place], ESTIMATED GFR (CKD-EPI) 86 mL/min/1.73sqm Normal >=60 [facility] Comment on above: Result Comment: 2020 CKD EPI Equation using Creatinine without RaceComment: Estimated glomerular filtration rate (eGFR) is calculated without a race coefficient. Values should be interpreted in the context of the patient's full clinical presentation.Reference:1. Isabella Israel Crews [place], et al.. A Unifying Approach for GFR Estimation: Recommendations of the NKF-ASN Task Force on Reassessing the Inclusion of Race in Diagnosing Kidney Disease. [place] Journal of Kidney Diseases 202;79(2):268-88.e1.2. N Engl J Med 1 Vol. 385 Issue 19 Pages 7258-2374 Performed By: #### M ALFIE Arthur, CHASE ####[facility] PATHOLOGY [id number] [place] [address], Basic metabolic 2000 panelon 08-01-2023 GFR/1.73 sq M.predicted CKD-EPI (S/P/Bld) [Vol rate/Area] 86 - PINF [facility] Comment on above: 2020 CKD EPI Equatio n using Creatinine without Race Comment: Estimated glomerular filtration rate (eGFR) is calculated without a race coefficient. Values should be interpreted in the context of the patient's full clinical presentation. Reference: 1. Isabella Israel, Kaz FUENTES, et al.. A Unifying Approach for GFR Estimation: Recommendations of the NKF-ASN Task Force on Reassessing the Inclusion of Race in Diagnosing Kidney Disease. [place] Journal of Kidney Diseases 2022;79(2):268-88.e1. 2. N Engl J Med 1 Vol. 385 Issue 19 Pages 4052-9171 CBC panel Auto (Bld)on 07-31 Interpretation and review of laboratory results Abnormal [facility] COMPLETE BLOOD COUNTon 07-31 Erythrocyte distribution width (RBC) [Ratio] 14.5 % Normal 11.5-14.5 [facility] Comment on above: Performed By: #### C BC ####[facility] PATHOLOG[facility] [id number] [place], Hematocrit (Bld) [Volume fraction] 30.8 % Low 36.0-46.0 [facility] Comment on above: Performed By: #### C BC ####[facility] PATHOLOGY [id number] [place], Hemoglobin (Bld) [Mass/Vol] 9.8 g/dL Low 12.0-15.0 [facility] Comment on above: Performed By: #### C BC ####[facility] PATHOLOGY [id number] [place], MCH (RBC) [Entitic mass] 29.1 pg Normal 26.0-34.0 [facility] Comment on above: Performed By: #### C BC ####[facility] PATHOLOGY [id number] [place] [address], MCHC (RBC) [Mass/Vol] 31.7 g/dL Low 32.0-35.9 [facility] Comment on above: Performed By: #### C BC ####[facility] PATHOLOGY [id number] [place] [address], MCV (RBC) [Entitic vol] 92 fL Normal 80-100 [facility] Comment on above: Performed By: #### C BC ####[facility] PATHOLOGY [id number] [place] [address], Platelet mean volume (Bld) [Entitic vol] 7.2 fL Low 7.5-11.2 [facility] Comment on above: Performed By: #### C BC ####[facility] PATHOLOGY [id number] [place] [address], Platelets (Bld) [#/Vol] 239 10*3/uL Normal 150-400 [facility] Comment on above: Performed By: #### C BC ####[facility] PATHOLOGY [id number] [place] [address], RBC (Bld) [#/Vol] 3.36 10*6/uL Low 4.00-5.20 [facility] Comment on above: Performed By: #### C BC ####[facility] PATHOLOGY [id number] [place], WBC (Bld) [#/Vol] 8.4 10*3/uL Normal 4.5-11.5 [facility] Comment on above: Performed By: #### C BC ####S PATHOLOGY [id number] [place], Care Plan Noteon 08-01-2023 Client Account Assistant Authentication Interface Message Text Normal [facility] Client Account Assistant Authentication Interface Message Text Normal [facility] Consultson 08-01-2023 Client Account Assistant Authentication Interface Message Text Normal [facility] Client Account Assistant Authentication Interface Message Text Normal [facility] EKG 12 LEAD - PERFORMon 07-11 Diagnosis Suspect arm lead reversal, interpretation assumes no reversal Normal sinus rhythm with sinus arrhythmia Right superior axis deviation Abnormal ECG When compared with ECG of 31-JUL-2023 19:38, (unconfirmed) No significant change was found Confirmed by Elsie FLANAGAN GRACE ([id number]) on 08/01/2023 1:56:38 PM [facility] P wave [facility] by EKG 77 BPM [facility] P-R Interval 166 ms [facility] Q-T interval 398 ms [facility] Q-T interval corrected 450 ms [facility] QRS axis 190 degrees [facility] QRS duration 80 ms [facility] T wave axis 150 degrees [facility] Diagnosis Normal sinus rhythm with sinus arrhythmia Right superior axis deviation Nonspecific ST and T wave abnormality Abnormal ECG No previous ECGs available Confirmed by GEOVANNY PATTON ([id number]) on 08/01/2023 8:05:52 AM [facility] P wave Atrium by EKG 77 BPM [facility] P-R Interval 160 ms [facility] Q-T interval 404 ms [facility] Q-T interval corrected 457 ms [facility] QRS axis 189 degrees [facility] QRS duration 82 ms [facility] T wave axis 151 degrees [facility] MAGNESIUMon 08-01-2023 Magnesium [Mass/Vol] 2.1 mg/dL Normal 1.9-2.7 [facility] Comment on above: Performed By: #### ALFIE Yoo, PHOS ####[facility] PATHOLOG[facility] [id number] [place], [place] Panel Informationon 07-31 Interpretation and review of laboratory results Normal [facility] PHOSPHORUSon 08-01-2023 Phosphate [Mass/Vol] 2.6 mg/dL Normal 2.5-5.0 [facility] Comment on above: Performed By: #### ALFIE Yoo PHOS ####[facility] PATHOLOG[facility] [id number] [place], Progress Noteson 08-01-2023 Client Account Assistant Authentication Interface Message Text Normal [facility] Client Account Assistant Authentication Interface Message Text Normal [facility] Client Account Assistant Authentication Interface Message Text Normal [facility] BASIC METABOLIC PANELon 05-2 Anion gap [Moles/Vol] 13 mmol/L Normal 10-20 [facility] Comment on above: Performed By: #### CHASE Yoo, ALFIE ####[facility] PATHOLOG[facility] [id number] [place], [place], Calcium [Mass/Vol] 9.0 mg/dL Normal 8.6-10.3 [facility] Comment on above: Performed By: #### CHASE Yoo CH8 ####[facility] PATHOLOGY [id number] [place], Chloride [Moles/Vol] 103 mmol/L Normal 98-107 [facility] Comment on above: Performed By: #### CHASE Yoo CH8 ####[facility] PATHOLOGY [id number] [place], CO2 [Moles/Vol] 26 mmol/L Normal 21-31 [facility] Comment on above: Performed By: #### CHASE Yoo, CHRISTIN8 ####[facility] PATHOLOGY [id number] [place], Creatinine [Mass/Vol] 0.69 mg/dL Normal 0.60-1.20 [facility] Comment on above: Performed By: #### CHASE Yoo, CHRISTIN8 ####[facility] PATHOLOGY [id number] [place], Glucose [Mass/Vol] 113 mg/dL High 74-109 [facility] Comment on above: Performed By: #### CHASE Yoo, CHRISTIN8 ####[facility] PATHOLOGY [id number] [place], Potassium [Moles/Vol] 3.6 mmol/L Normal 3.5-5.0 [facility] Comment on above: Performed By: #### Brittany CHASE Arthur CH8 ####[facility] PATHOLOGY [id number] [place], Sodium [Moles/Vol] 138 mmol/L Normal 136-145 [facility] Comment on above: Performed By: #### CHASE Yoo CH8 ####[facility] PATHOLOGY [id number] [place], Urea nitrogen [Mass/Vol] 12 mg/dL Normal 7-25 [facility] Comment on above: Performed By: #### CHASE Yoo CH8 ####[facility] PATHOLOGY [id number] [place], ESTIMATED GFR (CKD-EPI) 86 mL/min/1.73sqm Normal >=60 [facility] Comment on above: Result Comment: 2020 CKD EPI Equation using Creatinine without RaceComment: Estimated glomerular filtration rate (eGFR) is calculated without a race coefficient. Values should be interpreted in the context of the patient's full clinical presentation.Reference:1. Isabella Israel Crews [place], et al.. A Unifying Approach for GFR Estimation: Recommendations of the NKF-ASN Task Force on Reassessing the Inclusion of Race in Diagnosing Kidney Disease. [place] Journal of Kidney Diseases 202;79(2):268-88.e1.2. N Engl J Med 2020 Vol. 385 Issue 19 Pages 6735-0541 Performed By: #### CHASE Yoo CH8 ####[facility] PATHOLOGY [id number] [place], Basic metabolic 2000 panelon 07-31-2023 GFR/1.73 sq M.predicted CKD-EPI (S/P/Bld) [Vol rate/Area] 86 - PINF [facility] Comment on above: 2020 CKD EPI Equatio n using Creatinine without Race Comment: Estimated glomerular filtration rate (eGFR) is calculated without a race coefficient. Values should be interpreted in the context of the patient's full clinical presentation. Reference: 1. Isabella Israel Crews [place], et al.. A Unifying Approach for GFR Estimation: Recommendations of the NKF-ASN Task Force on Reassessing the Inclusion of Race in Diagnosing Kidney Disease. [place] Journal of Kidney Diseases 2021;79(2):268-88.e1. 2. N Engl J Med 2020 Vol. 385 Issue 19 Pages 1800-0065 CBC panel Auto (Bld)on 07-30 Interpretation and review of laboratory results Abnormal [facility] COMPLETE BLOOD COUNTon 07-30 Erythrocyte distribution width (RBC) [Ratio] 14.4 % Normal 11.5-14.5 [facility] Comment on above: Performed By: #### C BC ####S PATHOLOGY [id number] [place] [address], Hematocrit (Bld) [Volume fraction] 31.1 % Low 36.0-46.0 [facility] Comment on above: Performed By: #### C BC ####[facility] PATHOLOGY [id number] [place] [address], Hemoglobin (Bld) [Mass/Vol] 10.4 g/dL Low 12.0-15.0 [facility] Comment on above: Performed By: #### C BC ####[facility] PATHOLOGY [id number] [place], MCH (RBC) [Entitic mass] 30.6 pg Normal 26.0-34.0 [facility] Comment on above: Performed By: #### C BC ####[facility] PATHOLOGY [id number] [place] [address], MCHC (RBC) [Mass/Vol] 33.4 g/dL Normal 32.0-35.9 [facility] Comment on above: Performed By: #### C BC ####S PATHOLOGY [id number] [place], MCV (RBC) [Entitic vol] 92 fL Normal 80-100 [facility] Comment on above: Performed By: #### C BC ####S PATHOLOGY [id number] [place], Platelet mean volume (Bld) [Entitic vol] 7.3 fL Low 7.5-11.2 [facility] Comment on above: Performed By: #### C BC ####S PATHOLOGY [id number] [place], Platelets (Bld) [#/Vol] 238 10*3/uL Normal 150-400 [facility] Comment on above: Performed By: #### C BC ####S PATHOLOGY [id number] [place], RBC (Bld) [#/Vol] 3.40 10*6/uL Low 4.00-5.20 [facility] Comment on above: Performed By: #### C BC ####S PATHOLOGY [id number] [place], WBC (Bld) [#/Vol] 7.7 10*3/uL Normal 4.5-11.5 [facility] Comment on above: Performed By: #### C BC ####S PATHOLOGY [id number] [place], Care Plan Noteon 07-31-2023 Client Account Assistant Authentication Interface Message Text Normal [facility] MAGNESIUMon 07-31-2023 Magnesium [Mass/Vol] 1.8 mg/dL Low 1.9-2.7 [facility] Comment on above: Performed By: #### CHASE Yoo CH8 ####[facility] PATH[facility] [id number] [place], No Panel Informationon 07-30 Interpretation and review of laboratory results Abnormal [facility] PHOSPHORUSon 07-31-2023 Phosphate [Mass/Vol] 2.4 mg/dL Low 2.5-5.0 [facility] Comment on above: Performed By: #### CHASE Yoo, CHSurinder ####S PATHOLOGY [id number] [place], Progress Noteson 07-31-2023 Client Account Assistant Authentication Interface Message Text Normal [facility] Client Account Assistant Authentication Interface Message Text Normal [facility] Client Account Assistant Authentication Interface Message Text Normal [facility] Client Account Assistant Authentication Interface Message Text Normal [facility] BASIC METABOLIC PANELon 07-11 Anion gap [Moles/Vol] 9 mmol/L Low 10-20 [facility] Comment on above: Performed By: #### CHASE Yoo CH8 ####[facility] PATHOLOGY [id number] [place], Calcium [Mass/Vol] 8.8 mg/dL Normal 8.6-10.[address] [facility] Comment on above: Performed By: #### CHASE Yoo CH8 ####[facility] PATHOLOGY [id number] [place], Chloride [Moles/Vol] 104 mmol/L Normal 98-107 [facility] Comment on above: Performed By: #### CHASE Yoo CH8 ####[facility] PATHOLOGY [id number] [place], CO2 [Moles/Vol] 30 mmol/L Normal 21-[address] [facility] Comment on above: Performed By: #### CHASE Yoo CH8 ####[facility] PATHOLOGY [id number] [place], Creatinine [Mass/Vol] 0.71 mg/dL Normal 0.60-1.20 [facility] Comment on above: Performed By: #### CHASE Yoo CH8 ####[facility] PATHOLOGY [id number] [place], ESTIMATED GFR (CKD-EPI) 84 mL/min/1.73sqm Normal >=60 [facility] Comment on above: Result Comment: 2020 CKD EPI Equation using Creatinine without RaceComment: Estimated glomerular filtration rate (eGFR) is calculated without a race coefficient. Values should be interpreted in the context of the patient's full clinical presentation.Reference:1. Nestor C, Isabella M, Kaz FUENTES, et al.. A Unifying Approach for GFR Estimation: Recommendations of the NKF-ASN Task Force on Reassessing the Inclusion of Race in Diagnosing Kidney Disease. [place] Journal of Kidney Diseases 2021;79(2):268-88.e1.2. N Engl J Med 2020 Vol. 385 Issue 19 Pages 7691-3752 Performed By: #### CHASE Yoo CH8 ####[facility] PATHOLOGY [id number] [place], Glucose [Mass/Vol] 104 mg/dL Normal 74-109 [facility] Comment on above: Performed By: #### HCASE Yoo CH8 ####S PATHOLOGY [id number] [place], Potassium [Moles/Vol] 4.0 mmol/L Normal 3.5-5.0 [facility] Comment on above: Performed By: #### CHASE Yoo CH8 ####S PATHOLOGY [id number] [place], Sodium [Moles/Vol] 139 mmol/L Normal 136-145 [facility] Comment on above: Performed By: #### CHASE Yoo CH8 ####S PATHOLOGY [id number] [place], Urea nitrogen [Mass/Vol] 18 mg/dL Normal 7-25 [facility] Comment on above: Performed By: #### CHASE Yoo CH8 ####[facility] PATHOLOGY [id number] [place], Basic metabolic 2000 panelon 07-30-2023 Anion gap [Moles/Vol] 9 mmol/L Low 10 - 20 [facility] Calcium [Mass/Vol] 8.8 mg/dL 8.6 - 10. 3 mg/dL [facility] Chloride [Moles/Vol] 104 mmol/L 98 - 10 7 mmol/L [facility] CO2 [Moles/Vol] 30 mmol/L 21 - 31 mmol/L [facility] Creatinine [Mass/Vol] 0.71 mg/dL 0.60 - 1.20 mg/dL [facility] GFR/1.73 sq M.predicted CKD-EPI (S/P/Bld) [Vol rate/Area] 84 - PINF [facility] Comment on above: 2020 CKD EPI Equatio n using Creatinine without Race Comment: Estimated glomerular filtration rate (eGFR) is calculated without a race coefficient. Values should be interpreted in the context of the patient's full clinical presentation. Reference: 1. Nestor Norris, Isabella M, Kaz [place], et al.. A Unifying Approach for GFR Estimation: Recommendations of the NKF-ASN Task Force on Reassessing the Inclusion of Race in Diagnosing Kidney Disease. [place] Journal of Kidney Diseases 2021;79(2):268-88.e1. 2. N Engl J Med 2020 Vol. 385 Issue 19 Pages 8969-1501 Glucose [Mass/Vol] 104 mg/dL 74 - 109 mg/dL [facility] Interpretation and review of laboratory results Abnormal [facility] Potassium [Moles/Vol] 4.0 mmol/L 3.5 - 5.0 mmol/L [facility] Sodium [Moles/Vol] 139 mmol/L 136 - 145 mmol/L [facility] Urea nitrogen [Mass/Vol] 18 mg/dL 7 - 25 mg/dL [facility] CBC panel Auto (Bld)Ordered By: Alley Clay on 07-30-2023 Erythrocyte distribution width (RBC) [Ratio] 14.5 % 11.5 - 14.5 % [facility] Hematocrit (Bld) [Volume fraction] 32.4 % Low 36.0 - 46.0 % [facility] Hemoglobin (Bld) [Mass/Vol] 10.3 g/dL Low 12.0 - 15.0 g/dL [facility] Interpretation and review of laboratory results Abnormal [facility] MCH (RBC) [Entitic mass] 29.2 pg 26.0 - 34.0 pg [facility] MCHC (RBC) [Mass/Vol] 31.9 g/dL Low 32.0 - 35.9 g/dL [facility] MCV (RBC) [Entitic vol] 92 fL 80 - 100 fL [facility] Platelet mean volume (Bld) [Entitic vol] 7.3 fL Low 7.5 - 11.2 fL [facility] Platelets (Bld) [#/Vol] 224 10*3/uL 150 - 400 K/uL [facility] RBC (Bld) [#/Vol] 3.53 10*6/uL Low [facility] WBC (Bld) [#/Vol] 9.1 10*3/uL 4.5 - 11.5 K/uL [facility] COMPLETE BLOOD COUNTon 07-29 Erythrocyte distribution width (RBC) [Ratio] 14.5 % Normal 11.5-14.5 [facility] Comment on above: Performed By: #### C BC ####[facility] PATHOLOGY [id number] [place] [address], Hematocrit (Bld) [Volume fraction] 32.4 % Low 36.0-46.0 [facility] Comment on above: Performed By: #### C BC ####[facility] PATHOLOGY [id number] [place], Hemoglobin (Bld) [Mass/Vol] 10.3 g/dL Low 12.0-15.0 [facility] Comment on above: Performed By: #### C BC ####[facility] PATHOLOGY [id number] [place] [address], MCH (RBC) [Entitic mass] 29.2 pg Normal 26.0-34.0 [facility] Comment on above: Performed By: #### C BC ####[facility] PATHOLOGY [id number] [place] [address], MCHC (RBC) [Mass/Vol] 31.9 g/dL Low 32.0-35.9 [facility] Comment on above: Performed By: #### C BC ####[facility] PATHOLOGY [id number] [place] [address], MCV (RBC) [Entitic vol] 92 fL Normal 80-100 [facility] Comment on above: Performed By: #### C BC ####[facility] PATHOLOGY [id number] [place], Platelet mean volume (Bld) [Entitic vol] 7.3 fL Low 7.5-11.2 [facility] Comment on above: Performed By: #### C BC ####[facility] PATHOLOGY [id number] [place], Platelets (Bld) [#/Vol] 224 10*3/uL Normal 150-400 [facility] Comment on above: Performed By: #### C BC ####[facility] PATHOLOGY [id number] [place], RBC (Bld) [#/Vol] 3.53 10*6/uL Low 4.00-5.20 [facility] Comment on above: Performed By: #### C BC ####[facility] PATHOLOGY [id number] [place], WBC (Bld) [#/Vol] 9.1 10*3/uL Normal 4.5-11.5 [facility] Comment on above: Performed By: #### C BC ####[facility] PATHOLOGY [id number] [place], Consultson 07-30-2023 Client Account Assistant Authentication Interface Message Text Normal [facility] Client Account Assistant Authentication Interface Message Text Normal [facility] Client Account Assistant Authentication Interface Message Text Normal [facility] Client Account Assistant Authentication Interface Message Text Normal [facility] Client Account Assistant Authentication Interface Message Text Normal [facility] Goldenrodon 07-30-2023 Client Account Assistant Authentication Interface Message Text Normal [facility] MAGNESIUMon 07-30-2023 Magnesium [Mass/Vol] 1.9 mg/dL 1.9 - 2 .7 mg/dL [facility] Magnesium [Mass/Vol] 1.9 mg/dL Normal 1.9-2.7 [facility] Comment on above: Performed By: #### CHASE Yoo CH8 ####[facility] PATH[facility] [id number] [place], No Panel Informationon 07-29 Interpretation and review of laboratory results Normal [facility] PHOSPHORUSon 07-30-2023 Phosphate [Mass/Vol] 3.3 mg/dL 2.5 - 5 .0 mg/dL [facility] Phosphate [Mass/Vol] 3.3 mg/dL Normal 2.5-5.0 [facility] Comment on above: Performed By: #### CHASE Yoo CH8 ####[facility] PATH[facility] [id number] [place], Progress Noteson 07-30-2023 Client Account Assistant Authentication Interface Message Text Normal [facility] Client Account Assistant Authentication Interface Message Text Normal [facility] Client Account Assistant Authentication Interface Message Text Normal [facility] Progress Notes - NoteWritero n 07-30-2023 Client Account Assistant Authentication Interface Message Text Normal [facility] ABO RH TYPEon 07-29-2023 [facility] ABO and Rh group Nom (Bld) Blood group A Rh(D) positive Normal [facility] Comment on above: Performed By: #### A KATHARINE ####S PATHOLOGY [id number] [place], ABO/Rhon 07-29-2023 ABO/Rh Positive Invalid Interpretation Code [facility] Comment on above: Performed By: #### 2 [id number] #### [facility] [address] [place] [address] ABO/Rh History Checkon 07-28 ABO/Rh History Check Verified Hx Blood Type Normal [facility] Comment on above: Performed By: #### 1 [id number] #### [facility] [address] [place] [address] ABSCon 07-29-2023 ABSC Gel Interp Negative Normal [facility] Comment on above: Performed By: #### 1 [id number] #### [facility] [address] [place] [address] BASIC METABOLIC PANELon 07-10 Anion gap [Moles/Vol] 13 mmol/L Normal 10-20 [facility] Comment on above: Performed By: #### C H8 ####S PATHOLOGY [id number] [place], Calcium [Mass/Vol] 9.3 mg/dL Normal 8.6-10.3 [facility] Comment on above: Performed By: #### C H8 ####S PATHOLOGY [id number] [place], Chloride [Moles/Vol] 103 mmol/L Normal 98-107 [facility] Comment on above: Performed By: #### C H8 ####S PATHOLOGY [id number] [place], CO2 [Moles/Vol] 29 mmol/L Normal 21-31 [facility] Comment on above: Performed By: #### C H8 ####[facility] PATHOLOGY [id number] [place], Creatinine [Mass/Vol] 0.77 mg/dL Normal 0.60-1.20 [facility] Comment on above: Performed By: #### C H8 ####[facility] PATHOLOGY [id number] [place], ESTIMATED GFR (CKD-EPI) 76 mL/min/1.73sqm Normal >=60 [facility] Comment on above: Result Comment: 2020 CKD EPI Equation using Creatinine without RaceComment: Estimated glomerular filtration rate (eGFR) is calculated without a race coefficient. Values should be interpreted in the context of the patient's full clinical presentation.Reference:1. Nestor C, Isabella M, Kaz FUENTES, et al.. A Unifying Approach for GFR Estimation: Recommendations of the NKF-ASN Task Force on Reassessing the Inclusion of Race in Diagnosing Kidney Disease. [place] Journal of Kidney Diseases 2021;79(2):268-88.e1.2. N Engl J Med 2020 Vol. 385 Issue 19 Pages 2027-4219 Performed By: #### C H8 ####[facility] PATHOLOGY [id number] [place], Glucose [Mass/Vol] 103 mg/dL Normal 74-109 [facility] Comment on above: Performed By: #### C H8 ####[facility] PATHOLOGY [id number] [place], Potassium [Moles/Vol] 4.1 mmol/L Normal 3.5-5.0 [facility] Comment on above: Performed By: #### C H8 ####[facility] PATHOLOGY [id number] [place], Sodium [Moles/Vol] 141 mmol/L Normal 136-145 [facility] Comment on above: Performed By: #### C H8 ####S PATHOLOGY [id number] [place], Urea nitrogen [Mass/Vol] 18 mg/dL Normal 7-25 [facility] Comment on above: Performed By: #### C H8 ####S PATHOLOGY [id number] [place], Anion gap [Moles/Vol] 12 mmol/L Normal 10-20 [facility] Comment on above: Performed By: #### C H8, ETOH ####S PATHOLOGY [id number] [place], Calcium [Mass/Vol] 9.1 mg/dL Normal 8.6-10.3 [facility] Comment on above: Performed By: #### C H8, ETOH ####[facility] PATHOLOGY [id number] [place], Chloride [Moles/Vol] 102 mmol/L Normal 98-107 [facility] Comment on above: Performed By: #### C H8, ETOH ####[facility] PATHOLOGY [id number] [place], CO2 [Moles/Vol] 28 mmol/L Normal 21-31 [facility] Comment on above: Performed By: #### C H8, ETOH ####[facility] PATHOLOGY [id number] [place], Creatinine [Mass/Vol] 0.78 mg/dL Normal 0.60-1.20 [facility] Comment on above: Performed By: #### C H8, ETOH ####S PATHOLOGY [id number] [place], ESTIMATED GFR (CKD-EPI) 75 mL/min/1.73sqm Normal >=60 [facility] Comment on above: Result Comment: 2020 CKD EPI Equation using Creatinine without RaceComment: Estimated glomerular filtration rate (eGFR) is calculated without a race coefficient. Values should be interpreted in the context of the patient's full clinical presentation.Reference:1. Nestor C, Isabella M, Kaz FUENTES, et al.. A Unifying Approach for GFR Estimation: Recommendations of the NKF-ASN Task Force on Reassessing the Inclusion of Race in Diagnosing Kidney Disease. [place] Journal of Kidney Diseases 2021;79(2):268-88.e1.2. N Engl J Med 1 Vol. 385 Issue 19 Pages 7317-1721 Performed By: #### C H8, ETOH ####[facility] PATHOLOGY [id number] [place], Glucose [Mass/Vol] 94 mg/dL Normal 74-109 [facility] Comment on above: Performed By: #### C H8, ETOH ####[facility] PATHOLOGY [id number] [place], Potassium [Moles/Vol] 4.1 mmol/L Normal 3.5-5.[address] [facility] Comment on above: Performed By: #### Jr H8, ETOH ####[facility] PATHOLOGY [id number] [place], Sodium [Moles/Vol] 138 mmol/L Normal 136-[address] [facility] Comment on above: Performed By: #### Jr Jung8, ETOH ####[facility] PATHOLOGY [id number] [place], Urea nitrogen [Mass/Vol] 20 mg/dL Normal 7-[address] [facility] Comment on above: Performed By: #### Jr Jung8, ETOH ####[facility] PATHOLOGY [id number] [place], BLOOD BANKOrdered By: Dulce Maria Calixto on 07-29-2023 ABO/Rh Interp Positive Invalid Interpretation Code [facility] Subsection ABSC Gel Interp Negative (07/29/23 11:39 AM) Normal [facility] Subsection BMPon 07-29-2023 Anion gap [Moles/Vol] 10 mmol/L Normal 6-16 [facility] Comment on above: Performed By: #### 2 [id number] #### [facility] [address] [place] [address] Calcium [Mass/Vol] 8.9 mg/dL Normal 8.9-11.1 [facility] Comment on above: Performed By: #### 2 [id number] #### [facility] [address] [place] [address] Chloride [Moles/Vol] 105 mmol/L Normal 101-111 [facility] Comment on above: Performed By: #### 2 [id number] #### [facility] [address] [place] [address] CO2 [Moles/Vol] 29 mmol/L Normal 21-31 [facility] Comment on above: Performed By: #### 2 [id number] #### [facility] [address] [place] [address] Creatinine [Mass/Vol] 0.8 mg/dL Normal 0.5-1.3 [facility] Comment on above: Performed By: #### 2 [id number] #### [facility] [address] [place] [address] Glucose [Mass/Vol] 94 mg/dL Normal 55-199 [facility] Comment on above: Performed By: #### 2 [id number] #### [facility] [address] [place] [address] Potassium [Moles/Vol] 3.9 mmol/L Normal 3.5-5.3 [facility] Comment on above: Performed By: #### 2 [id number] #### [facility] [address] [place] [address] Sodium [Moles/Vol] 140 mmol/L Normal 135-145 [facility] Comment on above: Performed By: #### 2 [id number] #### [facility] [address] [place] [address] Urea nitrogen [Mass/Vol] 21 mg/dL Normal 5-21 [facility] Comment on above: Performed By: #### 2 [id number] #### [facility] [address] [place] [address] Urea nitrogen/Creatinine [Mass ratio] 26 No Units High 10-20 [facility] Comment on above: Performed By: #### 2 [id number] #### [facility] [address] [place] [address] Basic metabolic 2000 panelon 07-29-2023 Anion gap [Moles/Vol] 13 mmol/L 10 - 20 [facility] Calcium [Mass/Vol] 9.3 mg/dL 8.6 - 10. 3 mg/dL [facility] Chloride [Moles/Vol] 103 mmol/L 98 - 10 7 mmol/L [facility] CO2 [Moles/Vol] 29 mmol/L 21 - 31 mmol/L [facility] Creatinine [Mass/Vol] 0.77 mg/dL 0.60 - 1.20 mg/dL [facility] GFR/1.73 sq M.predicted CKD-EPI (S/P/Bld) [Vol rate/Area] 76 - PINF [facility] Comment on above: 2020 CKD EPI Equatio n using Creatinine without Race Comment: Estimated glomerular filtration rate (eGFR) is calculated without a race coefficient. Values should be interpreted in the context of the patient's full clinical presentation. Reference: 1. Isabella Israel Crews [place], et al.. A Unifying Approach for GFR Estimation: Recommendations of the NKF-ASN Task Force on Reassessing the Inclusion of Race in Diagnosing Kidney Disease. [place] Journal of Kidney Diseases 202;79(2):268-88.e1. 2. N Engl J Med 2020 Vol. 385 Issue 19 Pages 3207-9586 Glucose [Mass/Vol] 103 mg/dL 74 - 109 mg/dL [facility] Interpretation and review of laboratory results Normal [facility] Potassium [Moles/Vol] 4.1 mmol/L 3.5 - 5.0 mmol/L [facility] Sodium [Moles/Vol] 141 mmol/L 136 - 145 mmol/L [facility] Urea nitrogen [Mass/Vol] 18 mg/dL 7 - 25 mg/dL [facility] Anion gap [Moles/Vol] 12 mmol/L 10 - 20 [facility] Calcium [Mass/Vol] 9.1 mg/dL 8.6 - 10. 3 mg/dL [facility] Chloride [Moles/Vol] 102 mmol/L 98 - 10 7 mmol/L [facility] CO2 [Moles/Vol] 28 mmol/L 21 - 31 mmol/L [facility] Creatinine [Mass/Vol] 0.78 mg/dL 0.60 - 1.20 mg/dL [facility] GFR/1.73 sq M.predicted CKD-EPI (S/P/Bld) [Vol rate/Area] 75 - PINF [facility] Comment on above: 2020 CKD EPI Equatio n using Creatinine without Race Comment: Estimated glomerular filtration rate (eGFR) is calculated without a race coefficient. Values should be interpreted in the context of the patient's full clinical presentation. Reference: 1. Isabella Israel Crews DC, et al.. A Unifying Approach for GFR Estimation: Recommendations of the NKF-ASN Task Force on Reassessing the Inclusion of Race in Diagnosing Kidney Disease. [place] Journal of Kidney Diseases 202;79(2):268-88.e1. 2. N Engl J Med 2020 Vol. 385 Issue 19 Pages 4728-0047 Glucose [Mass/Vol] 94 mg/dL 74 - 109 mg/dL [facility] Potassium [Moles/Vol] 4.1 mmol/L 3.5 - 5.0 mmol/L [facility] Sodium [Moles/Vol] 138 mmol/L 136 - 145 mmol/L [facility] Urea nitrogen [Mass/Vol] 20 mg/dL 7 - 25 mg/dL [facility] ID#on 07-29-2023 BBID# [id number] Invalid Interpretation Code [facility] Comment on above: Performed By: #### 1 [id number] #### [facility] [address] [place] [address] CBC WITH DIFFERENTIALon 07-10 Basophils (Bld) [#/Vol] 0.06 10*3/uL 0.00 - 0.20 K/uL [facility] Basophils/100 WBC (Bld) 0.7 % NINF - 1.9 % [facility] Eosinophils (Bld) [#/Vol] 0.12 10*3/uL 0.00 - 0.70 K/uL [facility] Eosinophils/100 WBC (Bld) 1.4 % 0.1 - 4.0 % [facility] Erythrocyte distribution width (RBC) [Ratio] 14.3 % 11.5 - 14.5 % [facility] Hematocrit (Bld) [Volume fraction] 35.7 % Low 36.0 - 46.0 % [facility] Hemoglobin (Bld) [Mass/Vol] 12.0 g/dL 12.0 - 15.0 g/dL [facility] Interpretation and review of laboratory results Abnormal [facility] Lymphocytes (Bld) [#/Vol] 0.91 10*3/uL Low 1.00 - 4.80 K/uL [facility] Lymphocytes/100 WBC (Bld) 10.2 % Low 24.0 - 44.0 % [facility] MCH (RBC) [Entitic mass] 30.6 pg 26.0 - 34.0 pg [facility] MCHC (RBC) [Mass/Vol] 33.6 g/dL 32.0 - 35.9 g/dL [facility] MCV (RBC) [Entitic vol] 91 fL 80 - 100 fL [facility] Monocyte distribution width Auto (Bld) [Entitic vol] 17 NINF - 20 [facility] Monocytes (Bld) [#/Vol] 0.50 10*3/uL 0.20 - 1.00 K/uL [facility] Monocytes/100 WBC (Bld) 5.5 % 2.0 - 11.0 % [facility] Neutrophils (Bld) [#/Vol] 7.35 10*3/uL 1.50 - 8.00 K/uL [facility] Neutrophils/100 WBC (Bld) 82.2 % High 31.0 - 76.0 % [facility] Platelet mean volume (Bld) [Entitic vol] 6.9 fL Low 7.5 - 11.2 fL [facility] Platelets (Bld) [#/Vol] 214 10*3/uL 150 - 400 K/uL [facility] RBC (Bld) [#/Vol] 3.93 10*6/uL Low [facility] WBC (Bld) [#/Vol] 8.9 10*3/uL 4.5 - 11.5 K/uL [facility] Basophils (Bld) [#/Vol] 0.06 10*3/uL Normal 0.00-0.20 [facility] Comment on above: Performed By: #### C BCDSAT ####S PATHOLOGY [id number] [place] [address], Basophils/100 WBC (Bld) 0.7 % Normal <=1.9 [facility] Comment on above: Performed By: #### C BCDSAT ####S PATHOLOGY [id number] [place], [place], Eosinophils (Bld) [#/Vol] 0.12 10*3/uL Normal 0.00-0.70 [facility] Comment on above: Performed By: #### C BCDSAT ####[facility] [id number] [place], [place], Eosinophils/100 WBC (Bld) 1.4 % Normal 0.1-4.0 [facility] Comment on above: Performed By: #### C BCDSAT ####[facility] PATHOLOGY [id number] [place], [place], Erythrocyte distribution width (RBC) [Ratio] 14.3 % Normal 11.5-14.5 [facility] Comment on above: Performed By: #### C BCDSAT ####[facility] PATHOLOGY [id number] [place], [place], Hematocrit (Bld) [Volume fraction] 35.7 % Low 36.0-46.0 [facility] Comment on above: Performed By: #### C BCDSAT ####[facility] PATHOLOGY [id number] [place], Hemoglobin (Bld) [Mass/Vol] 12.0 g/dL Normal 12.0-15.0 [facility] Comment on above: Performed By: #### C BCDSAT ####[facility] PATHOLOGY [id number] [place], Lymphocytes (Bld) [#/Vol] 0.91 10*3/uL Low 1.00-4.80 [facility] Comment on above: Performed By: #### C BCDSAT ####[facility] PATHOLOGY [id number] [place], Lymphocytes/100 WBC (Bld) 10.2 % Low 24.0-44.0 [facility] Comment on above: Performed By: #### C BCDSAT ####[facility] PATHOLOGY [id number] [place], MCH (RBC) [Entitic mass] 30.6 pg Normal 26.0-34.0 [facility] Comment on above: Performed By: #### C BCDSAT ####[facility] PATHOLOGY [id number] [place], MCHC (RBC) [Mass/Vol] 33.6 g/dL Normal 32.0-35.9 [facility] Comment on above: Performed By: #### C BCDSAT ####[facility] PATHOLOGY [id number] [place], MCV (RBC) [Entitic vol] 91 fL Normal 80-100 [facility] Comment on above: Performed By: #### C BCDSAT ####[facility] PATHOLOGY [id number] [place], MONOCYTE DISTRIBUTION WIDTH 17 Normal <=20 [facility] Comment on above: Performed By: #### C BCDSAT ####S PATHOLOGY [id number] [place], Monocytes (Bld) [#/Vol] 0.50 10*3/uL Normal 0.20-1.00 [facility] Comment on above: Performed By: #### C BCDSAT ####[facility] PATHOLOGY [id number] [place], Monocytes/100 WBC (Bld) 5.5 % Normal 2.0-11.0 [facility] Comment on above: Performed By: #### C BCDSAT ####[facility] PATHOLOGY [id number] [place], Neutrophils (Bld) [#/Vol] 7.35 10*3/uL Normal 1.50-8.00 [facility] Comment on above: Performed By: #### C BCDSAT ####[facility] PATHOLOGY [id number] [place], Neutrophils/100 WBC (Bld) 82.2 % High 31.0-76.0 [facility] Comment on above: Performed By: #### C BCDSAT ####[facility] PATHOLOGY [id number] [place], Platelet mean volume (Bld) [Entitic vol] 6.9 fL Low 7.5-11.2 [facility] Comment on above: Performed By: #### C BCDSAT ####[facility] PATHOLOGY [id number] [place], Platelets (Bld) [#/Vol] 214 10*3/uL Normal 150-400 [facility] Comment on above: Performed By: #### C BCDSAT ####[facility] PATHOLOGY [id number] [place], RBC (Bld) [#/Vol] 3.93 10*6/uL Low 4.00-5.20 [facility] Comment on above: Performed By: #### C BCDSAT ####[facility] PATHOLOGY [id number] [place], WBC (Bld) [#/Vol] 8.9 10*3/uL Normal 4.5-11.5 [facility] Comment on above: Performed By: #### C BCDSAT ####S PATHOLOGY [id number] [place], [place], CBC panel Auto (Bld)on 07-28 Erythrocyte distribution width (RBC) [Ratio] 14.3 % 11.5 - 14.5 % [facility] Hematocrit (Bld) [Volume fraction] 38.3 % 36.0 - 46.0 % [facility] Hemoglobin (Bld) [Mass/Vol] 12.2 g/dL 12.0 - 15.0 g/dL [facility] Interpretation and review of laboratory results Abnormal [facility] MCH (RBC) [Entitic mass] 29.4 pg 26.0 - 34.0 pg [facility] MCHC (RBC) [Mass/Vol] 31.8 g/dL Low 32.0 - 35.9 g/dL [facility] MCV (RBC) [Entitic vol] 92 fL 80 - 100 fL [facility] Platelet mean volume (Bld) [Entitic vol] 7.0 fL Low 7.5 - 11.2 fL [facility] Platelets (Bld) [#/Vol] 252 10*3/uL 150 - 400 K/uL [facility] RBC (Bld) [#/Vol] 4.15 10*6/uL [facility] WBC (Bld) [#/Vol] 8.5 10*3/uL 4.5 - 11.5 K/uL [facility] CBC w/ Auto Diffon 4 Basophils/100 WBC (Bld) 0.7 % Normal 0.0-2.0 [facility] Comment on above: Performed By: #### 2 [id number] #### [facility] [address] [place] [address] Basophils/Leukocytes Auto (Bld) [Pure # fraction] 0.0 E9/L Normal 0.0-0.2 [facility] Comment on above: Performed By: #### 2 [id number] #### [facility] [address] [place] [address] Eosinophils (Bld) [#/Vol] 0.2 E9/L Normal 0.0-0.5 [facility] Comment on above: Performed By: #### 2 [id number] #### [facility] [address] [place] [address] Eosinophils/100 WBC (Bld) 2.8 % Normal 0.0-8.0 [facility] Comment on above: Performed By: #### 2 [id number] #### [facility] [address] [place] [address] Erythrocyte distribution width (RBC) [Ratio] 14.4 % High 10.9-14.2 [facility] Comment on above: Performed By: #### 2 [id number] #### [facility] [address] [place] [address] Hematocrit (Bld) [Volume fraction] 34.3 % Normal 34.0-46.0 [facility] Comment on above: Performed By: #### 2 [id number] #### [facility] [address] [place] [address] Hemoglobin (Bld) [Mass/Vol] 11.7 g/dL Low 12.0-16.0 [facility] Comment on above: Performed By: #### 2 [id number] #### [facility] [address] [place] [address] Lymphocytes (Bld) [#/Vol] 0.9 E9/L Low 1.0-4.0 [facility] Comment on above: Performed By: #### 2 [id number] #### [facility] [address] [place] [address] Lymphocytes/100 WBC (Bld) 15.4 % Normal 14.0-50.0 [facility] Comment on above: Performed By: #### 2 [id number] #### [facility] [address] [place] [address] MCH (RBC) [Entitic mass] 30.8 pg Normal 27.0-34.0 [facility] Comment on above: Performed By: #### 2 [id number] #### [facility] [address] [place] [address] MCHC (RBC) [Mass/Vol] 34.1 g/dL Normal 31.4-36.0 [facility] Comment on above: Performed By: #### 2 [id number] #### [facility] [address] [place] [address] MCV (RBC) [Entitic vol] 90.2 fL Normal 80.0-100.0 [facility] Comment on above: Performed By: #### 2 [id number] #### [facility] [address] [place] [address] Monocytes (Bld) [#/Vol] 0.4 E9/L Normal 0.2-1.0 [facility] Comment on above: Performed By: #### 2 [id number] #### [facility] [address] [place] [address] Neutrophils (Bld) [#/Vol] 4.3 E9/L Normal 2.0-7.5 [facility] Comment on above: Performed By: #### 2 [id number] #### [facility] [address] [place] [address] Neutrophils/100 WBC (Bld) 73.6 % Normal 36.0-75.0 [facility] Comment on above: Performed By: #### 2 [id number] #### [facility] [address] [place] [address] Platelet mean volume (Bld) [Entitic vol] 7.4 fL Normal 6.4-10.8 [facility] Comment on above: Performed By: #### 2 [id number] #### [facility] [address] [place] [address] Platelets (Bld) [#/Vol] 211.0 E9/L Normal 150.0-500. 0 [facility] Comment on above: Performed By: #### 2 [id number] #### [facility] [address] [place] [address] RBC (Bld) [#/Vol] 3.8 E12/L Low 4.3-5.9 [facility] Comment on above: Performed By: #### 2 [id number] #### [facility] [address] [place] [address] WBC corrected for nucl RBC Auto (Bld) [#/Vol] 5.8 E9/L Normal 4.0-11.0 [facility] Comment on above: Performed By: #### 2 [id number] #### [facility] [address] [place] [address] CHEMISTRYOrdered By: SYSTEM SYSTEM on 07-29-2023 Albumin [Mass/Vol] 3.8 g/dL Normal 3.3 - 5.0 gm/dL [facility] Albumin/Globulin [Mass ratio] 1.8 {ratio} Normal 1.1 - 2.2 [facility] ALP [Catalytic activity/Vol] 44 [iU]/d Normal 21 - 98 Int._Unit/ L [facility] ALT No additional P-5'-P [Catalytic activity/Vol] 11 [iU]/d Normal 6 - 46 Int._Unit/ L [facility] Anion gap [Moles/Vol] 10 mmol/L Normal 6 - 16 mEq/L [facility] AST [Catalytic activity/Vol] 22 [iU]/d Normal 5 - 43 Int._Unit/ L [facility] Bilirubin [Mass/Vol] 0.5 mg/dL Normal 0.0 - 1 .1 mg/dL [facility] Bilirubin.direct [Mass/Vol] 0.1 mg/dL Normal 0.0 - 0.4 mg/dL [facility] Bilirubin.indirect [Mass or moles/Vol] 0.4 mg/dL Normal 0.1 - 0.9 mg/dL [facility] Calcium [Mass/Vol] 8.9 mg/dL Normal 8.9 - 11. 1 mg/dL [facility] Chloride [Moles/Vol] 105 mmol/L Normal 101 - 1 11 mmol/L [facility] CO2 [Moles/Vol] 29 mmol/L Normal 21 - 31 mmol/L [facility] Creatinine [Mass/Vol] 0.8 mg/dL Normal 0.5 - 1.3 mg/dL [facility] eGFR 73 mL/min/1.73 m2 Normal >=59mL/min /1.73 m2 [facility] Ethanol Lvl mg/dL Normal <=11mg/dL [facility] Globulin (S) [Mass/Vol] 2.1 g/dL Normal 1.4 - 4.0 gm/dL [facility] Glucose [Mass/Vol] 94 mg/dL Normal 55 - 199 mg/dL [facility] Lactic Acid Lvl 0.6 mmol/L Normal 0.5 - 2.2 mmol/L [facility] Lipase [Catalytic activity/Vol] 14 U/L Normal 13 - 58 unit/L [facility] Potassium [Moles/Vol] 3.9 mmol/L Normal 3.5 - 5.3 mmol/L [facility] Protein [Mass/Vol] 5.9 g/dL Low 6.0 - 7.8 gm/dL [facility] Sodium [Moles/Vol] 140 mmol/L Normal 135 - 145 mmol/L [facility] Troponin 7.60 pg/mL Low 10.10 - 27.10 pg/mL [facility] Comment on above: Interpretive Data: T he 95% CI (Confidence Interval) PPV (Positive Predictive Value) for myocardial infarction in females is 38 pg/mL, in males 51 pg/mL. The results should be used in conjunction with clinical conditions of myocardial infarction. (Access High Sensitivity Troponin I Instructions For Use, Raegan Gregory, October 2017) Urea nitrogen [Mass/Vol] 21 mg/dL Normal 5 - 21 mg/dL [facility] Urea nitrogen/Creatinine [Mass ratio] 26 mg/mg High 10 - 20 [facility] COAGULATIONOrdered By: Racquel Case on 07-29-2023 aPTT Coag (PPP) [Time] 31.7 s Normal 25.1 - 36.5 second(s) [facility] Comment on above: Interpretive Data: P arameter 15 days - 4 weeks 1 - 5 months 6 - 11 months 1 - 5 years 6 - 10 years 11 - 17 years PTT Mean: 35.4 (27.6-45.6) Mean: 33.5 (24.8-40.7) Mean: 32.4 (25.1-40.7) Mean: 31.6 (24.0-39.2) Mean: 31.6 (26.9-38.7) Mean: 31.0 (24.6-38.4) Pediatric Reference ranges were obtained from a study by dominik Haas al. prepared from 1437 samples obtained at 7 different centers using the same coagulation reagent and instrumentation as [facility]. Currently there are no coagulation studies available worldwide for children to 14 days, and no normal ranges. Heparin therapeutic range (represented by Anti-Factor Xa activity of 0.2 - 0.4 U/mL) corresponds to PTT of 56.6 - 109.0 sec. INR Coag (PPP) [Relative time] 0.96 {INR} Invalid Interpretation Code [facility] Comment on above: Interpretive Data: I NR results are specifically intended to assess patients stabilized on long-term Anticoagulation therapy suggested INR s Less Intensive Anticoagulation 2.0 3.0 Conventional Range 3.0 4.5 PT Coag (PPP) [Time] 10.8 s Normal 9.4 - 1 2.5 second(s) [facility] Comment on above: Interpretive Data: 1 5 days - 4 weeks 1 - 5 months 6 -11 months 1 5 years 6 10 years 11 -17 years Mean: 11.2 (9.5 12.6) Mean: 11.0 (9.7 12.8) Mean: 11.0 (9.8 13.0) Mean: 11.3 (9.9 13.4) Mean: 11.7 (10.0 14.6) Mean: 11.8 (10.0 - 14.1) Pediatric Reference ranges were obtained from a study by dominik Haas al. prepared from 1437 samples obtained at 7 different centers using the same coagulation reagent and instrumentation as [facility]. Currently there are no coagulation studies available worldwide for children to 14 days, and no normal ranges. COMPLETE BLOOD COUNTon 07-28 Erythrocyte distribution width (RBC) [Ratio] 14.3 % Normal 11.5-14.5 [facility] [employer] [facility] Comment on above: Performed By: #### C BC ####[facility] PATH[facility] [id number] [place] [address], [id number] Hematocrit (Bld) [Volume fraction] 38.3 % Normal 36.0-46.0 [facility] Comment on above: Performed By: #### C BC ####[facility] PATHOLOGY [id number] [place], [place], Hemoglobin (Bld) [Mass/Vol] 12.2 g/dL Normal 12.0-15.0 [facility] Comment on above: Performed By: #### C BC ####[facility] PATHOLOGY [id number] [place], MCH (RBC) [Entitic mass] 29.4 pg Normal 26.0-34.0 [facility] Comment on above: Performed By: #### C BC ####[facility] PATHOLOGY [id number] [place], MCHC (RBC) [Mass/Vol] 31.8 g/dL Low 32.0-35.9 [facility] Comment on above: Performed By: #### C BC ####[facility] PATHOLOGY [id number] [place] [address], MCV (RBC) [Entitic vol] 92 fL Normal 80-100 [facility] Comment on above: Performed By: #### C BC ####[facility] PATHOLOGY [id number] [place], Platelet mean volume (Bld) [Entitic vol] 7.0 fL Low 7.5-11.2 [facility] Comment on above: Performed By: #### C BC ####[facility] PATHOLOGY [id number] [place], Platelets (Bld) [#/Vol] 252 10*3/uL Normal 150-400 [facility] Comment on above: Performed By: #### C BC ####[facility] PATHOLOGY [id number] [place], RBC (Bld) [#/Vol] 4.15 10*6/uL Normal 4.00-5.20 [facility] Comment on above: Performed By: #### C BC ####[facility] PATHOLOGY [id number] [place], WBC (Bld) [#/Vol] 8.5 10*3/uL Normal 4.5-11.[address] [facility] Comment on above: Performed By: #### C ####S PATHOLOGY [id number] [place], [id number] CT Abdomen/Pelvis w/ Contras ton 07-29-2023 CT Abdomen/Pelvis w/ Contrast Exam Date/Time: 07/29/2023 12:11 EDT Reason for Exam: ABDOMINAL TRAUMA;Other (please specify) Report Please review CT chest for report of CT abdomen pelvis. All CT scans at this facility use dose modulation, iterative reconstruction, and/or weight based dosing when appropriate to reduce radiation dose to as low as reasonably achievable. Ordering Provider: Stacia Dwyer FINAL REPORT Dictated: 07/29/2023 12:39 pm Shahid Bear MD Signed (Electronic Signature): 07/29/2023 12:39 pm Signed by: Shahid Bear MD Transcribed by: BRENDA Technologist: AC Technical Comments GFR (mL/min/1/73m2) trauma protocol Contrast: Isovue 300 Contrast amount in ml's: [address] [facility] [address] Chest w/ Contraston 07-28 CT Chest w/ Contrast Exam Date/Time: 07/29/2023 12:11 EDT Reason for Exam: CHEST TRAUMA, MOD-SEVERE;Other (please specify) Report IMPRESSION: SIGMOID DIVERTICULOSIS. GRADE [address] OF THE CHEST, ABDOMEN, AND PELVIS WITH INTRAVENOUS CONTRAST MEDIUM. HISTORY: CHEST TRAUMA, MOD-SEVERE TECHNICAL FACTORS: CT imaging of the chest, abdomen, and pelvis, was obtained and formatted as 5 mm contiguous axial images from the thoracic inlet through the symphysis pubis. Spinal, sagittal, and coronal reconstructions obtained during postprocessing. Intravenous contrast medium: Isovue-300, 130 mL Comparison: CT chest, July 09, 2023. CT abdomen pelvis, November 10, 2018. CT OF THE CHEST WITH INTRAVENOUS CONTRAST MEDIUM. FINDINGS: Right lung: No nodules, masses, consolidation, pleural effusion, pneumothorax. Mild dependent subsegmental atelectatic change right lung base. Left lung: No nodules, masses, consolidation, pleural effusion, pneumothorax. Mild dependent subsegmental atelectatic change left upper and left lower lobes. Lymph nodes: No hilar, mediastinal, or axillary lymph node enlargement. Thoracic aorta: Normal in course and caliber. Cardiac: Size normal. No pericardial effusion. Coronary artery calcification. Musculoskeletal:No osteoblastic, and no osteolytic lesions. No fracture. Bilateral, bipolar shoulder arthroplasty. CT OF THE ABDOMEN AND PELVIS WITH INTRAVENOUS CONTRAST MEDIUM. Report FINDINGS: Liver: Normal in size, shape, and attenuation. Bile Ducts: Normal in caliber. Gallbladder: No stones or wall thickening. Pancreas: Normal without masses, cysts, ductal dilatation or calcification. Spleen: Normal in size without masses. Punctate calcification spleen. No splenules. Kidneys: Normal in size and enhancement. No hydronephrosis, masses, or stones. Cortical cyst, lower pole right kidney, measuring up to 8 mm. Adrenals: Normal. Small bowel: Normal in caliber. Appendix: Not visualized. Colon: Diverticular change sigmoid colon. Peritoneum: No ascites, free air, or fluid collections. Vessels: Aorta normal in course and caliber. Portal vein, splenic vein, superior mesenteric vein are patent. Lymph nodes: Retroperitoneal: No enlarged retroperitoneal lymph nodes. Mesenteric: No enlarged mesenteric lymph nodes. Pelvic: No enlarged pelvic lymph nodes. Ureters: Normal in course and caliber. No calcifications. Bladder: No wall thickening. Reproductive organs: No pelvic masses. Abdominal Wall: No hernia identified. No diastasis of rectus musculature. No edema or masses. Bones: No bone lesions. No fracture. Diffuse disc space narrowing L4-L5 with posterior disc space narrowing remainder lumbar spine. 3 mm anterolisthesis L4 on L5, unchanged. No post operative changes. All CT scans at this facility use dose modulation, iterative reconstruction, and/or weight based dosing when appropriate to reduce radiation dose to as low as reasonably achievable. Report Ordering Provider: Stacia Dwyer FINAL REPORT Dictated: 07/29/2023 12:39 pm Shahid Bear MD Signed (Electronic Signature): 07/29/2023 12:39 pm Signed by: Shahid Bear MD Transcribed by: BRENDA Technologist: AC Technical Comments GFR (mL/min/1/73m2) trauma protocol Contrast: Isovue 300 Contrast amount in ml's: [address] [facility] [address] HEAD W/O CONTRASTon 07-28 CT HEAD W/O CONTRAST Normal [facility] CT HEAD W/O CONTRAST Normal [facility] [employer] [facility] CT Head WO contrastOrdered B y: Marky Rg on 07-29-2023 CT DLP 1325.7 (mGy.cm) [facility] Work Phone: CT Series Head [facility] Work Phone: CTDI VOL 67.5 (mGy) [facility] Work Phone: PHANTOM TYPE IEC Head Dosimetry Phantom [facility] Work Phone: [facility] Work Phone: CT Head WO contraston 2023 EXAMINATION: CT HEAD W/O CONTRAST 07/29/2023 10:12 PM CLINICAL HISTORY: Subdural hematoma ASSOCIATED DIAGNOSIS: Subdural hematoma ORDERING PROVIDER: YUNIOR SANCHEZ TECHNOLOGISTS NOTE: COMPARISON: Head CT from 07/29/2023 1629 hours TECHNIQUE: Thin axial imaging of the head was performed without intravenous contrast. FINDINGS: Expected continued evolution of left mixed density left hemispheric subdural hematoma with mild compression of the left cerebral hemisphere left lateral ventricle. Subdural blood products measure 11 mm in greatest thickness over AP ventral left frontal convexity. Rightward midline shift of 4 mm is similar to prior, accounting for interobserver measurement differences. Unchanged layering subdural hemorrhages along the tentorial leaflets. Subcortical parenchymal hemorrhages in the dorsal left superior and middle frontal gyri at the vertex are unchanged. No significant ventricular trapping. No new hemorrhage or CT evidence of acute territorial infarction. Brain volume and ventricular caliber are within normal limits. Patchy hypodensities in the periventricular white matter are nonspecific but favor sequela of moderate chronic small vessel ischemia. No acute abnormality of the paranasal sinuses and tympanomastoid cavities are clear. IMPRESSION: Sequelae of traumatic brain injury with expected continued evolution of left holohemispheric subdural hematoma, stable mass effect, and rightward midline shift. Unchanged small dorsal left frontal subcortical hemorrhages suggestive of low-grade diffuse axonal injury. MACRO: None RADIOLOGY Marky Rg MD - 07/29/2023 EXAMINATION: CT HEAD W/O CONTRAST 07/29/2023 10:12 PM CLINICAL HISTORY: Subdural hematoma ASSOCIATED DIAGNOSIS: Subdural hematoma ORDERING PROVIDER: DENOMINATIONAL LAURA TECHNOLOGISTS NOTE: COMPARISON: Head CT from 07/29/2023 1629 hours TECHNIQUE: Thin axial imaging of the head was performed without intravenous contrast. FINDINGS: Expected continued evolution of left mixed density left hemispheric subdural hematoma with mild compression of the left cerebral hemisphere left lateral ventricle. Subdural blood products measure 11 mm in greatest thickness over AP ventral left frontal convexity. Rightward midline shift of 4 mm is similar to prior, accounting for interobserver measurement differences. Unchanged layering subdural hemorrhages along the tentorial leaflets. Subcortical parenchymal hemorrhages in the dorsal left superior and middle frontal gyri at the vertex are unchanged. No significant ventricular trapping. No new hemorrhage or CT evidence of acute territorial infarction. Brain volume and ventricular caliber are within normal limits. Patchy hypodensities in the periventricular white matter are nonspecific but favor sequela of moderate chronic small vessel ischemia. No acute abnormality of the paranasal sinuses and tympanomastoid cavities are clear. IMPRESSION: Sequelae of traumatic brain injury with expected continued evolution of left holohemispheric subdural hematoma, stable mass effect, and rightward midline shift. Unchanged small dorsal left frontal subcortical hemorrhages suggestive of low-grade diffuse axonal injury. MACRO: None [facility] Radiology Study observation (narrative) [facility] EXAMINATION: CT HEAD W/O CONTRAST 07/29/2023 04:34 PM CLINICAL HISTORY: eval SDH ASSOCIATED DIAGNOSIS: eval SDH ORDERING PROVIDER: VICKIE HUMMEL TECHNOLOGISTS NOTE: COMPARISON: None TECHNIQUE: Thin axial imaging of the head was performed without intravenous contrast. FINDINGS: Acute mixed attenuating subdural hematoma throughout the left convexity measuring up to 1.2 cm. Additional trace subdural hemorrhage along the falx and small volume hemorrhage layering along the bilateral tentorial leaflets. Small cortical or subcortical hemorrhages in the dorsal left frontal lobe measuring 6 mm or less. 3 mm of djvg-av-zslru midline shift. Partial effacement of the left lateral ventricle related to mass effect from the hemorrhage. The ventricles are otherwise concordant with the expected degree of volume loss for age. Atherosclerotic disease with patchy areas of hypoattenuation throughout the white matter which are nonspecific although most likely related to moderate chronic small vessel ischemic changes. The skull, paranasal sinuses and tympanomastoid cavities are normal. IMPRESSION: 1. Acute left convexity heterogeneous subdural hematoma measuring up to 1.2 cm. 2. Trace parafalcine and small bilateral tentorial leaflet subdural hemorrhages. 3. Small cortical/subcortical hemorrhagic contusions in the dorsal left frontal lobe. 4. 3 mm of wmed-id-cuneb midline shift. MACRO: None RADIOLOGY Artem Amanda, DO - 07/29/2023 EXAMINATION: CT HEAD W/O CONTRAST 07/29/2023 04:34 PM CLINICAL HISTORY: eval SDH ASSOCIATED DIAGNOSIS: eval SDH ORDERING PROVIDER: VICKIE HUMMEL TECHNOLOGISTS NOTE: COMPARISON: None TECHNIQUE: Thin axial imaging of the head was performed without intravenous contrast. FINDINGS: Acute mixed attenuating subdural hematoma throughout the left convexity measuring up to 1.2 cm. Additional trace subdural hemorrhage along the falx and small volume hemorrhage layering along the bilateral tentorial leaflets. Small cortical or subcortical hemorrhages in the dorsal left frontal lobe measuring 6 mm or less. 3 mm of gxlg-de-vrzuk midline shift. Partial effacement of the left lateral ventricle related to mass effect from the hemorrhage. The ventricles are otherwise concordant with the expected degree of volume loss for age. Atherosclerotic disease with patchy areas of hypoattenuation throughout the white matter which are nonspecific although most likely related to moderate chronic small vessel ischemic changes. The skull, paranasal sinuses and tympanomastoid cavities are normal. IMPRESSION: 1. Acute left convexity heterogeneous subdural hematoma measuring up to 1.2 cm. 2. Trace parafalcine and small bilateral tentorial leaflet subdural hemorrhages. 3. Small cortical/subcortical hemorrhagic contusions in the dorsal left frontal lobe. 4. 3 mm of dvyu-np-vwymy midline shift. MACRO: None [facility] Radiology Study observation (narrative) [facility] CT Head WO contrastOrdered B y: Artem Treasure on 07-29-2023 CT DLP 1295.85 (mGycm) [facility] Work Phone: CT Series Head,Head,Head [facility] h Work Phone: CTDI VOL 71.99 (mGy) [facility] Work Phone: PHANTOM TYPE IEC Head Dosimetry Phantom [facility] Work Phone: [facility] Work Phone: CT Head or Brain w/o Contras ton 07-29-2023 CT Head or Brain w/o Contrast [facility] CT Maxillofacial w/o Contras ton 07-29-2023 CT Maxillofacial w/o Contrast Exam Date/Time: 07/29/2023 12:08 EDT Reason for Exam: left facial injury;Other (please specify) Report IMPRESSION: MINIMAL LEFT ORBITAL/PERIORBITAL SOFT TISSUE SWELLING. NASAL SEPTAL DEVIATION TO LEFT. CT MAXILLOFACIAL WITHOUT INTRAVENOUS CONTRAST MEDIUM. History: [place] [employer]. Technical factors: CT maxillofacial imaging was performed and formatted as contiguous axial images. Sagittal and coronal reconstruction obtained during postprocessing. Comparison: None. Findings: Bilateral frontal, ethmoid, sphenoid, and maxillary sinuses are patent. Nasal septal deviation to left. Ostiomeatal complexes patent bilaterally. Mastoid air cells well pneumatized bilaterally. Bilateral ocular globes, extraocular muscles, optic nerves, retrobulbar fat without anomaly. Remote right ocular surgery. Minimal left supraorbital/periorbital soft tissue swelling. No fracture. Bone lesion. All CT scans at this facility use dose modulation, iterative reconstruction, and/or weight based dosing when appropriate to reduce radiation dose to as low as reasonably achievable. Ordering Provider: Stacia Dwyer FINAL REPORT Dictated: 07/29/2023 12:26 pm Shahid Bear MD Signed (Electronic Signature): 07/29/2023 12:26 pm Signed by: Shahid Bear MD Transcribed by: BRENDA Technologist: AC [facility] CT Spine Cervical w/o Contra ston 07-29-2023 CT Spine Cervical w/o Contrast Exam Date/Time: 07/29/2023 12:08 EDT Reason for Exam: NECK TRAUMA, DANGEROUS INJURY MECHANISM;Other (please specify) Report IMPRESSION: NO FRACTURE. NO MALALIGNMENT. MULTILEVEL DEGENERATIVE CHANGE CERVICAL SPINE. BILATERAL CAROTID CALCIFICATION. IF CLINICAL CONCERN WARRANTS, CAROTID SONOGRAPHY MAY BE OBTAINED FOR FURTHER EVALUATION. CT CERVICAL SPINE WITHOUT INTRAVENOUS CONTRAST MEDIUM. HISTORY: [facility] [employer]. Head pain. Left eyebrow laceration. NECK TRAUMA, DANGEROUS INJURY MECHANISM TECHNICAL FACTORS: CT cervical spine obtained and formatted as 2.5 mm contiguous axial images from skull base to the level of. Sagittal and coronal reconstructions were obtained during postprocessing. No contrast medium was utilized. COMPARISON: CT cervical spine, November 10, 2018. FINDINGS: Cervical vertebral bodies are normal in height and alignment. Atlantooccipital articulation maintained. Atlantoaxial interval preserved. Neural foramina narrowing bilateral C5-C6. Disc space narrowing C4-C5 through C6-C7. Posterior disc space narrowing C3-C4. Anterior osteophytes C4-C7 with posterior osteophytes at same level. No fractures, dislocations, bone lesions. Limited imaging lung apices without anomaly. Bilateral carotid calcification. Soft tissues are without anomaly. All CT scans at this facility use dose modulation, iterative reconstruction, and/or weight based dosing when appropriate to reduce radiation dose to as low as reasonably achievable. Report Ordering Provider: Stacia Dwyer FINAL REPORT Dictated: 07/29/2023 12:23 pm Shahid Bear MD Signed (Electronic Signature): 07/29/2023 12:23 pm Signed by: Shahid Bear MD Transcribed by: BRENDA Technologist: AC [facility] Care Plan Noteon 07-29-2023 Client Account Assistant Authentication Interface Message Text Normal [facility] [employer] [facility] Consent for Treatmenton 07-10 Consent for Treatment [id number] [facility] Consultson 07-29-2023 Client Account Assistant Authentication Interface Message Text Normal [facility] [employer] [facility] ED Clinical Summaryon 2023 ED Clinical Summary (Inserted Image. Candi ble to display) [place] [id number] ED Clinical Summary Person Information Name: CARLY MARCELINO [facility] Age: 83 Years : 1940 Sex: Female Language: Martiniquais PCP: HARDEEP MCKENZIE DO Marital Status: Phone: [phone] Visit Id: Visit Reason: Facial laceration; Closed head injury without LOC; Knee pain-swelling; Trauma - major; Fall; fall Speciality: Acuity: 2 Enc Type: Emergency Med Service: Emergency Arrival: 07/29/2023 11:00:09 Discharge: 07/29/2023 12:52:21 LOS: 000 01:52 Checkin: 07/29/2023 11:00:09 Checkout: 07/29/2023 12:52:21 Dispo Type: Short-Term Hosp as IP EVENTS: Event Name Event Status Request Date/Time Start Date/Time Complete Date/Time Arrive Complete 07/29/2023 11:00:09 07/29/2023 11:00:09 07/29/2023 11:00:09 Document Home Meds Request 07/29/2023 11:00:09 Triage Complete 07/29/2023 11:00:09 07/29/2023 11:08:34 07/29/2023 11:08:34 Bed Assign Complete 07/29/2023 11:03:30 07/29/2023 11:03:30 07/29/2023 11:03:30 Dr Exam Complete 07/29/2023 11:03:30 07/29/2023 11:09:00 07/29/2023 11:09:00 RN Exam Complete 07/29/2023 11:03:30 07/29/2023 12:24:50 07/29/2023 12:24:50 Patient Care Request 07/29/2023 11:05:46 30 Day Return Request 07/29/2023 11:08:34 Registration Complete 07/29/2023 11:09:00 07/29/2023 11:20:10 07/29/2023 11:20:10 Dr Exam Complete 07/29/2023 11:10:24 07/29/2023 11:10:24 07/29/2023 11:10:24 EKG Complete 07/29/2023 11:12:48 07/29/2023 11:19:47 NPO Request 07/29/2023 11:12:48 Pending Labs Request 07/29/2023 11:12:48 Lab Request 07/29/2023 11:12:48 Urine Collect Request 07/29/2023 11:12:48 Patient Care Request 07/29/2023 11:12:48 RT Request 07/29/2023 11:12:48 X-Ray Complete 07/29/2023 11:12:48 07/29/2023 11:41:56 07/29/2023 12:24:31 Blood Collect Request 07/29/2023 11:12:48 CT Complete 07/29/2023 11:12:48 07/29/2023 11:31:05 07/29/2023 12:11:23 Meds Admin Complete 07/29/2023 11:12:48 07/29/2023 11:19:38 Trauma II Request 07/29/2023 11:14:36 30 Day Return Request 07/29/2023 11:14:36 X-Ray Complete 07/29/2023 11:20:05 07/29/2023 11:41:54 07/29/2023 12:24:02 Reg Complete Request 07/29/2023 11:20:10 Reg Bed Request Complete 07/29/2023 11:20:10 07/29/2023 11:20:10 07/29/2023 11:20:10 Patient Care Request 07/29/2023 11:54:33 Transfer Complete 07/29/2023 11:54:33 07/29/2023 12:53:07 07/29/2023 12:53:07 Pending Labs Complete 07/29/2023 11:59:15 07/29/2023 11:59:15 07/29/2023 12:26:45 Lab Complete 07/29/2023 11:59:15 07/29/2023 11:59:15 07/29/2023 12:26:45 Pending Labs Complete 07/29/2023 12:01:50 07/29/2023 12:01:50 07/29/2023 12:25:25 Lab Complete 07/29/2023 12:01:50 07/29/2023 12:01:50 07/29/2023 12:25:25 Pending Labs Complete 07/29/2023 12:09:39 07/29/2023 12:09:39 07/29/2023 12:09:39 Meds Admin Complete 07/29/2023 12:19:51 07/29/2023 12:23:58 Wet Read Request 07/29/2023 12:24:02 Fall Risk Request 07/29/2023 12:24:50 Discharge Complete 07/29/2023 12:53:07 07/29/2023 12:53:07 07/29/2023 12:53:07 ADDRESS: [facility] [address] [place] [id number] [facility] DOC NOTES: MEDICAL INFORMATION: Prescriptions Given: Medications to Continue with No Changes Other Medications acetaminophen (acetaminophen 325 mg Tab) 2 Tablets By Mouth every 6 hours as needed Pain. albuterol (Albuterol (Eqv-ProAir HFA) 90 mcg/inh inhalation aerosol) 2 Puffs Inhalation every 6 hours as needed Wheezing. Refills: 0. aspirin (aspirin 81 mg Chew Tab) 1 Tablets By Mouth every day. baclofen 5 Milligram By Mouth at bedtime. 1/2 of a 10 mg tab. cetirizine (Zyrtec) 10 Milligram By Mouth every day as needed Allergy symptoms. famotidine (famotidine 40 mg Tab) 1 Tablets By Mouth every day. Refills: 0. ferrous sulfate (ferrous sulfate 325 mg Tab) 1 Tablets By Mouth every day. Refills: 0. Fish Oil 1 Capsules By Mouth at bedtime. gabapentin (gabapentin 300 mg Cap) 1 Capsules By Mouth 3 times a day. guaifenesin (Mucinex 600 mg Tab-ER) 2 Tablets By Mouth 2 times a day. Refills: 0. levetiracetam (Keppra) 500 Milligram at bedtime. losartan (losartan 50 mg Tab) 1 Tablets By Mouth every day. Refills: 0. magnesium oxide (magnesium oxide 400 mg Tab) 1 Tablets By Mouth at bedtime. metoprolol (Metoprolol tartrate 25 mg Tab) 0.5 Tablets By Mouth 2 times a day. Refills: 0. montelukast (montelukast 10 mg Tab) 1 Tablets By Mouth every day. multivitamin with minerals (Multivitamins and Minerals oral tablet) PATIENT EDUCATION INFORMATION: Instructions: Follow up: DIAGNOSIS: Altered mental status; Contusion of hip; Contusion of knee; Facial contusion; Hypertensive emergency; Traumatic subdural hematoma (SDH) [facility] ED Noteon 07-29-2023 ED Note [id number] [facility] ED Note-Physicianon 07-29-19 ED Note-Physician Basic Information Time Seen: Stacia Dwyer DO 07/29/2023 11:10 Chief Complaint was walking into [employer] and tripped on curb causing her to fall. has ight knee pain and head pain History of Present Illness 83-year-old female to the emergency department with chief complaint of accidental fall. Patient was walking [place] [employer] when she tripped on a curb and fell onto her left side. She hit her left-sided head on the ground. She did not lose consciousness. She reports pain in her left hip, right knee, left side of face. She is on aspirin, no blood thinners. Tetanus up-to-date. Review of Systems A 10 point review of systems is negative except as noted above. Medical and Surgical History: Reviewed and noted Social history: Lives at home Tobacco: Denies Physical Exam Vitals & Measurements T: 36.5 ?C(Oral) HR: 62(Peripheral) RR: 18 BP: 166/74 SpO2: 98% HT: 170.18 cm WT: 82.9 kg BMI: 28.62 Primary Survey Airway Intact Lung sounds clear and equal bilaterally Pulses full and equal to femoral, radial, and dorsalis pedis bilaterally Heart regular rate and rhythm Skin warm, dry, pink GCS 14, mild confusion Movement and sensation intact to all extremities Patient Fully Exposed. Tenderness about the left hip and right knee. Bruising to the left side of face. Secondary Survey General: GCS 14; Alert, mild confusion HEENT: Traumatic ecchymosis to the left side of the face with small laceration to the brow; Facial bones stable; Eyes normal inspection, Pupils round, 4-2mm blt; No evidence of oropharyngeal trauma; No blood in the nares or septal hematoma; Tympanic Membranes intact, no hemotympanum or drainage Neck: Normal inspection; C-collar in place; No tracheal deviation; No JVD Resp: Normal breath sounds, no wheeze or crackles; No chest wall tenderness, crepitus, or subcutaneous emphysema; No visible evidence of chest wall trauma; Chest rise symmetric; No respiratory distress Heart: Heart rate and rhythm regular; Carotid, radial, femoral, dorsalis pedis pulses +2 and equal bilaterally; No Murmurs Abdomen: Soft; Non-tender No ecchymosis or visible wounds to abdominal wall; No distention, guarding, rigidity, or rebound; Pelvis stable, no pain on compression; No blood at urethral meatus MSK: Tenderness about the left hip and right knee. There is a hematoma about the medial right knee. Otherwise all major joints with normal ROM. No deformities. No bony tenderness. No tenderness or step-offs to palpation of thoracic or lumbar spine; No ecchymosis or wounds to upper or lower back Neuro: Alert but confused speech; Sensation intact and symmetric bilaterally; muscle strengths symmetric bilaterally in the upper and lower extremities. Skin: Color normal; No rash; Warm; Dry Procedure Critical Care Procedure Note Authorized and Performed by: Stacia Dwyer DO Total critical care time: 35 min Due to a high probability of clinically significant, life threatening deterioration, the patient required my highest level of preparedness to intervene emergently and I personally spent this critical care time directly and personally managing the patient. This critical care time included obtaining a history; examining the patient; pulse oximetry; ordering and review of studies; arranging urgent treatment with development of a management plan; evaluation of patient's response to treatment; frequent reassessment; and, discussions with other providers. This critical care time was performed to assess and manage the high probability of imminent, life-threatening deterioration that could result in multi-organ failure. It was exclusive of separately billable procedures and treating other patients and teaching time. Please see MDM section and the rest of the note for further information on patient assessment and treatment. Medical Decision Making 83-year-old female to the emergency department chief complaint of accidental fall. Vital stable, the patient is afebrile. She is very distracted by the left hip pain and confused. Whole-body CT imaging for rapid evaluation of traumatic injuries. X-ray of the right knee and left hip. Morphine and Zofran for symptoms. CT scan shows a subdural hematoma with some shift. Call was placed to the on-call trauma surgeon Dr. Cisneros. Plan for transfer to [facility] via helicopter EMS. Head of bed at 30 degrees. Goal SBP less than 160 and this chronically hypertensive patient. She did require a 10 mg IV hydralazine push. No blood thinners to reverse. X-ray imaging negative. CT cervical spine without acute findings. Patient was accepted the service of Dr. Cotter at [facility] for further trauma and neurosurgical evaluation. Patient and her daughter updated on this plan. Assessment/Plan Altered mental status (R41.82: Altered mental status, unspecified) Contusion of hip (S70.00XA: Contusion of unspecified hip, initial encounter) Contusion of knee (S80.00XA: Contusion of unspecified knee, initial enc (more content not included)... [facility] Comment on above: Result Comment: Elec tronically Signed By: Stacia Dwyer DO\.br\Date and Time Signed: 07/29/23 12:36 EDT ED Patient Education Noteon 07-29-2023 ED Patient Education Note [facility] ED Patient Summaryon 024 ED Patient Summary (Inserted Image. Candi ble to display) [place] [id number] Patient Discharge Instructions Person Information Name: CARLY MARCELINO Age: 83 Years Arrival Date: 07/29/2023 11:00:09 Discharge Diagnosis: Altered mental status; Contusion of hip; Contusion of knee; Facial contusion; Hypertensive emergency; Traumatic subdural hematoma (SDH) Primary Care Physician: HARDEEP MCKENZIE DO Provider Information Primary Provider: Stacia Dwyer DO Advanced Patient Case Coordinator:None The exam and treatment you received in the Emergency Department were for an urgent problem and are not intended as complete care. It is important that you follow up with a doctor, nurse practitioner, or physician?s certified physician's assistant for ongoing care. If your symptoms become worse or you do not improve as expected and you are unable to reach your usual health care provider, you should return to the Emergency Department. We are available 24 hours a day. CARLY MARCELINO has been given the following list of patient education materials, prescriptions and follow-up instructions: Follow-up Instructions: In the event that this physician does not participate in your insurance network, please consult with your insurance company to find a nearby participating provider. Patient Education Materials: A MESSAGE TO ALL PATIENTS REGARDING OPIOIDS PRESCRIPTION OPIOIDS: WHAT YOU NEED TO KNOW Prescription opioids can be used to help relieve lnaragbb-xg-rnpjoc pain and are often prescribed following a surgery or injury, or for certain health conditions. These medications can be an important part of the treatment but also come with serious risks. It is important to work with your healthcare provider to make sure you are getting the safest, most effective care. WHAT ARE THE RISKS AND SIDE EFFECTS OF OPIOID USE? Prescription opioids carry serious risks of addiction and overdose, especially with prolonged use. An opioid overdose, often marked by slowed breathing, can cause sudden . The use of prescription opioids can have a number of side effects as well, even when taken as directed: ? Tolerance?meaning you might need to take more of the medication for the same pain relief ? Physical dependence?meaning you have symptoms of withdrawal when a medication is stopped ? Increased sensitivity to pain ? Constipation ? Nausea, vomiting, and dry mouth ? Sleepiness and dizziness ? Confusion ? Depression ? Low levels of testosterone that can result in lower sex drive, energy, and strength ? Itching and sweating RISKS ARE GREATER WITH: ? History of drug misuse, substance use disorder, or overdose ? Mental health conditions (such as depression or anxiety) ? Sleep apnea ? Older age (65 years and older) ? Avoid alcohol while taking prescription opioids. Also, unless specifically advised by your health care provider, medications to avoid include: ? Benzodiazepines (such as Xanax or Valium) ? Muscle relaxants (such as Soma or Flexeril) ? Hypnotics (such as Ambien or Lunesta) ? Other prescription opioids KNOW YOUR OPTIONS Talk to your health care provider about ways to manage your pain that don?t involve prescription opioids. Some of these options may actually work better and have fewer risks and side effects. Options may include: ? Pain relievers such as acetaminophen, ibuprofen, and naproxen ? Some medication that are also used for depression or seizures ? Physical therapy and exercise ? Cognitive behavioral therapy, a psychological, goal-directed approach, in which patients learn how to modify physical, behavioral, and emotional triggers of pain and stress. IF YOU ARE PRESCRIBED OPIOIDS FOR PAIN: ? Never take opioids in greater amounts or more often than prescribed. ? Follow up with your primary health care provider. o Work together to create a plan on how to manage your pain. o Talk about ways to help manage your pain that don?t involve prescription opioids. o Talk about any and all concerns and side effects. ? Help prevent misuse and abuse o Never sell or share prescription opioids. o Never use another person?s prescription opioids. ? Store prescription opioids in a secure place and out of reach of others (this may include visitors, children, friends, and family). ? Safely dispose of unused prescription opioids: Find your community drug take-back program or your pharmacy mail-back program, or flush them down the toilet, following guidance from the Food and Drug Administration (www.fda.gov/Drugs/Resourc esForYou). ? Visit www.cdc.gov/drugoverdose to learn about the risks of opioids abuse and overdose. ? If you believe you may be struggling with addiction, tell your health care director and ask for guidance or call [facility] National Helpline at 3-165-184-HELP. v Source: [place] Department of Health and Human Services/Center for Disease Con (more content not included)... [facility] ED Provider Noteson 07-29-19 Client Account Assistant Authentication Interface Message Text [facility] Client Account Assistant Authentication Interface Message Text Normal [facility] ED Traumaon 07-29-2023 ED Trauma [id number] [facility] ED Triage Noteson 07-29-2023 Client Account Assistant Authentication Interface Message Text Prehospital Medications: 50 mcg fentanyl [facility] Client Account Assistant Authentication Interface Message Text Mechanical fall [place] [employer] today, head lac with subdural hematoma [facility] EMS Documentationon 07-29-19 EMS Documentation Please click on link to see report [facility] Comment on above: Result Comment: Miss ing Attachment - attachment exceeds size limitation [email or web address] Can be viewed in source system ETHANOL, SERUMon 07-29-2023 Ethanol [Mass/Vol] mg/dL None Detected mg/dL [facility] Ethanol [Mass/Vol] mg/dL Normal None Detected [facility] Comment on above: Performed By: #### C H8, ETOH ####[facility] [id number] [place], [address] Ethanolon 07-29-2023 Ethanol Lvl <10 Normal <=11 [facility] Comment on above: Performed By: #### 2 [id number] #### [facility] [address] [place] [address] H AND Ezra 07-29-2023 Client Account Assistant Authentication Interface Message Text Normal [facility] HEMATOLOGYOrdered By: SYSTEM SYSTEM on 07-29-2023 Basophils/100 WBC (Bld) 0.7 % Normal 0.0 - 2.0 % Remisol Heme Basophils/Leukocytes Auto (Bld) [Pure # fraction] 0.0 E9/L Normal 0.0 - 0.2 E9/L Remisol Heme Eosinophils (Bld) [#/Vol] 0.2 E9/L Normal 0.0 - 0.5 E9/L Remisol Heme Eosinophils/100 WBC (Bld) 2.8 % Normal 0.0 - 8.0 % Remisol Heme Erythrocyte distribution width (RBC) [Ratio] 14.4 % High 10.9 - 14.2 % Remisol Heme Hematocrit (Bld) [Volume fraction] 34.3 % Normal 34.0 - 46.0 % Remisol Heme Hemoglobin (Bld) [Mass/Vol] 11.7 g/dL Low 12.0 - 16.0 gm/dL Remisol Heme Lymphocytes (Bld) [#/Vol] 0.9 E9/L Low 1.0 - 4.0 E9/L Remisol Heme Lymphocytes/100 WBC (Bld) 15.4 % Normal 14.0 - 50.0 % Remisol Heme MCH (RBC) [Entitic mass] 30.8 pg Normal 27.0 - 34.0 pg Remisol Heme MCHC (RBC) [Mass/Vol] 34.1 g/dL Normal 31.4 - 36.0 gm/dL Remisol Heme MCV (RBC) [Entitic vol] 90.2 fL Normal 80.0 - 100.0 fL Remisol Heme Monocytes (Bld) [#/Vol] 0.4 E9/L Normal 0.2 - 1.0 E9/L Remisol Heme Monocytes/100 WBC (Bld) 7.5 % Normal 4.0 - 14.0 % Remisol Heme Neutrophils (Bld) [#/Vol] 4.3 E9/L Normal 2.0 - 7.5 E9/L Remisol Heme Neutrophils/100 WBC (Bld) 73.6 % Normal 36.0 - 75.0 % Remisol Heme Platelet mean volume (Bld) [Entitic vol] 7.4 fL Normal 6.4 - 10.8 fL Remisol Heme Platelets (Bld) [#/Vol] 211.0 E9/L Normal 150.0 - 500.0 E9/L Remisol Heme RBC (Bld) [#/Vol] 3.8 E12/L Low 4.3 - 5.9 E12/L Remisol Heme WBC corrected for nucl RBC Auto (Bld) [#/Vol] 5.8 E9/L Normal 4.0 - 11.0 E9/L Remisol Heme HIV 1 and 2 Ab and HIV 1 p24 Ag panel IAon 07-29-2023 HIV 1+2 Ab+HIV1 p24 Ag IA Ql Non-Reactive Non-Reacti ve [facility] Comment on above: No laboratory eviden ce for HIV Infection. Negative result does not rule out acute HIV infection. If acute HIV infection is suspected, recommend ordering an HIV-1 RNA quanitification test. Interpretation and review of laboratory results Normal [facility] HIV Information: [place] Rev. code 3701.243(E): This information has been disclosed to you from confidential records protected from disclosure by state law. You shall make no further disclosure of this information without the specific, written, and informed release of the individual to whom it pertains, or as otherwise permitted by state law. A general authorization for the release of medical or other information is not sufficient for the purpose of the release of HIV test results or diagnoses. [facility] HIV1 HIV2 AGAB SCRNon 2023 HIV AG-AB SCREEN Non-Reactive Normal Non-Reacti ve [facility] Comment on above: Order Comment: HIV I nformation: ???[place] Rev. code 3701.243(E):This information has been disclosed to you from confidential records protected from disclosure by state law. ???You shall make no further disclosure of this information without the specific, written, and informed release of the individual to whom it pertains, or as otherwise permitted by state law. ???A general authorization for the release of medical or other information is not sufficient for the purpose of the release of HIV test results or diagnoses. Result Comment: No l aboratory evidence for HIV Infection. Negative result does not rule out acute HIV infection. If acute HIV infection is suspected, recommend ordering an HIV-1 RNA quanitification test. Performed By: #### h iv1 hiv2 agab scrn ####[facility] [id number] [place], [address] Hep Func Panelon 07-29-2023 Albumin [Mass/Vol] 3.8 g/dL Normal 3.3-5.0 [facility] Comment on above: Performed By: #### 2 [id number] #### [facility] [address] [place] [address] Albumin/Globulin (S) [Mass conc ratio] 1.8 Normal 1.1-2.2 [facility] Comment on above: Performed By: #### 2 [id number] #### [facility] [address] [place] [address] ALP [Catalytic activity/Vol] 44 Int._Unit/L Normal 21-98 [facility] Comment on above: Performed By: #### 2 [id number] #### [facility] [address] [place] [address] ALT No additional P-5'-P [Catalytic activity/Vol] 11 Int._Unit/L Normal 6-46 [facility] Comment on above: Performed By: #### 2 [id number] #### [facility] [address] [place] [address] AST [Catalytic activity/Vol] 22 Int._Unit/L Normal 5-43 [facility] Comment on above: Performed By: #### 2 376570 #### [facility] [address] [place] [address] Bilirubin [Mass/Vol] 0.5 mg/dL Normal 0.0-1.1 [facility] Comment on above: Performed By: #### 2 730728 #### [facility] [address] [place] [address] Bilirubin.direct [Mass/Vol] 0.1 mg/dL Normal 0.0-0.4 [facility] Comment on above: Performed By: #### 2 968235 #### [facility] [address] [place] [address] Bilirubin.indirect [Mass or moles/Vol] 0.4 mg/dL Normal 0.1-0.9 [facility] Comment on above: Performed By: #### 2 430903 #### [facility] [address] [place] [address] Globulin (S) [Mass/Vol] 2.1 g/dL Normal 1.4-4.0 [facility] Comment on above: Performed By: #### 2 652519 #### [facility] [address] [place] [address] Protein [Mass/Vol] 5.9 g/dL Low 6.0-7.8 [facility] Comment on above: Performed By: #### 2 430090 #### [facility] [address] [place] [address] LACTIC ACIDOrdered By: Stefanie Chapman on 07-29-2023 Interpretation and review of laboratory results Normal [facility] Lactate [Moles/Vol] 1.3 mmol/L 0.5 - 1. 6 mmol/L [facility] LACTIC ACIDon 07-29-2023 CR LACT 1.3 mmol/L Normal 0.5-1.6 [facility] Comment on above: Performed By: #### L ACT ####S PATHOLOGY [id number] [place], [address] Laboratory - Blood bankon ABO and Rh group Nom (Bld) Blood group A Rh(D) positive [facility] Lactic Acidon 07-29-2023 Lactic Acid Lvl 0.6 mmol/L Normal 0.5-2.2 [facility] Comment on above: Performed By: #### 2 [id number] #### [facility] [address] [place] [address] Lipase Levelon 07-29-2023 Lipase [Catalytic activity/Vol] 14 U/L Normal 13-58 [facility] Comment on above: Performed By: #### 2 470544 #### [facility] [address] [place] [address] Monitor Recordon 07-29-2023 Monitor Record [id number] Normal [facility] No Panel Informationon 07-28 Interpretation and review of laboratory results Normal [facility] Interpretation and review of laboratory results Normal [facility] Interpretation and review of laboratory results Normal [facility] PARTIAL THROMBOPLASTIN TIMEo n 07-29-2023 aPTT Coag (Bld) [Time] 29 s [facility] a[facility] Coag (Bld) [Time] 29 s Normal 25-37 Th e [facility] Comment on above: Performed By: #### P T, APTT ####S PATHOLOGY [id number] [place], [place], aPTT Coag (Bld) [Time] 29 s [facility] aPTT Coag (Bld) [Time] 29 s Normal 25-37 Th e [facility] Comment on above: Performed By: #### P T, APTT ####[facility] PATHOLOGY [id number] [place] [address], PROTHROMBIN TIME AND INRon 0 07-29-2023 INR Coag (PPP) [Relative time] 0.97 {INR} 0.90 - 1.10 [facility] PT Coag (PPP) [Time] 10.9 s [facility] INR Coag (PPP) [Relative time] 0.97 {INR} Normal 0.90-1.10 [facility] Comment on above: Performed By: #### P T, APTT ####[facility] PATHOLOGY [id number] [place] [address], PT Coag (PPP) [Time] 10.9 s Normal 9.7-12.9 [facility] Comment on above: Performed By: #### P T, APTT ####[facility] PATHOLOGY [id number] [place] [address], INR Coag (PPP) [Relative time] 0.98 {INR} 0.90 - 1.10 [facility] PT Coag (PPP) [Time] 11.0 s [facility] INR Coag (PPP) [Relative time] 0.98 {INR} Normal 0.90-1.10 [facility] Comment on above: Performed By: #### P T, APTT ####S PATHOLOGY [id number] [place] [address], PT Coag (PPP) [Time] 11.0 s Normal 9.7-12.9 [facility] Comment on above: Performed By: #### P T, APTT ####[facility] [id number] [place], [address] PT & PTTon 07-29-2023 aPTT Coag (PPP) [Time] 31.7 second(s) Normal 25.1-36.5 [facility] Comment on above: Result Comment: Para meter 15 days - 4 weeks 1 - 5 months 6 - 11 months 1 - 5 years 6 - 10 years 11 - 17 years PTT Mean: 35.4 (27.6-45.6) Mean: 33.5 (24.8-40.7) Mean: 32.4 (25.1-40.7) Mean: 31.6 (24.0-39.2) Mean: 31.6 (26.9-38.7) Mean: 31.0 (24.6-38.4) Pediatric Reference ranges were obtained from a study by Dharmesh Marin et al. prepared from 1437 samples obtained at 7 different centers using the same coagulation reagent and instrumentation as [facility]. Currently there are no coagulation studies available worldwide for children to 14 days, and no normal ranges. Heparin therapeutic range (represented by Anti-Factor Xa activity of 0.2 - 0.4 U/mL) corresponds to PTT of 56.6 - 109.0 sec. Performed By: #### 1 [id number] #### [facility] [address] [place] [address] INR Coag (PPP) [Relative time] 0.96 {INR} Invalid Interpretation Code [facility] Comment on above: Result Comment: INR results are specifically intended to assess patients stabilized on long-term Anticoagulation therapy suggested INR?s ?Less Intensive Anticoagulation? 2.0 ? 3.0 Conventional Range 3.0 ? 4.5 Performed By: #### 1 [id number] #### [facility] [address] [place] [address] PT Coag (PPP) [Time] 10.8 second(s) Normal 9.4-12.5 [facility] Comment on above: Result Comment: 15 d ays - 4 weeks 1 - 5 months 6 -11 months 1 ? 5 years 6 ? 10 years 11 -17 years Mean: 11.2 (9.5 ? 12.6) Mean: 11.0 (9.7 ? 12.8) Mean: 11.0 (9.8 ? 13.0) Mean: 11.3 (9.9 ? 13.4) Mean: 11.7 (10.0 ? 14.6) Mean: 11.8 (10.0 - 14.1) Pediatric Reference ranges were obtained from a study by Dharmesh Marin et al. prepared from 1437 samples obtained at 7 different centers using the same coagulation reagent and instrumentation as [facility]. Currently there are no coagulation studies available worldwide for children to 14 days, and no normal ranges. Performed By: #### 1 [id number] #### [facility] [address] [place] [address] Pre-Arrival Noteon Pre-Arrival Note Normal [facility] Progress Noteson 07-29-2023 Client Account Assistant Authentication Interface Message Text Normal [facility] Client Account Assistant Authentication Interface Message Text Normal [facility] TYPE AND SCREENon 07-29-2023 ABO and Rh group Nom (Bld) Blood group A Rh(D) positive [facility] ABO and Rh group Nom (Bld) No Previous Results [facility] Blood group antibody screen Ql Negative [facility] ABO and Rh group Nom (Bld) Blood group A Rh(D) positive Normal [facility] Comment on above: Performed By: #### T S ####S PATHOLOGY [id number] [place], [place], ABO and Rh group Nom (Bld) No Previous Results Normal [facility] Comment on above: Performed By: #### T S ####[facility] [id number] [place], [place], ABSC INT Negative Normal [facility] Comment on above: Performed By: #### T S ####S PATHOLOGY [id number] [place], [place], Transfer Documentson 024 Transfer Documents [id number] Normal [facility] Treatment Plan Noteon 2023 Client Account Assistant Authentication Interface Message Text Normal [facility] Client Account Assistant Authentication Interface Message Text Normal [facility] [employer] [facility] Troponinon 07-29-2023 Troponin 7.60 pg/mL Low 10.10-27.1 0 [facility] Comment on above: Result Comment: The 95% CI (Confidence Interval) PPV (Positive Predictive Value) for myocardial infarction in females is 38 pg/mL, in males 51 pg/mL. The results should be used in conjunction with clinical conditions of myocardial infarction. (Access High Sensitivity Troponin I Instructions For Use, Raegan Nolan, October 2017) Performed By: #### 2 [id number] #### [facility] [address] [place] [address] XR Hip 2-3 Views Left + Pelv susan 07-29-2023 XR Hip 2-3 Views Left + Pelvis Exam Date/Time: 07/29/2023 12:24 EDT Reason for Exam: Trauma;Other (please specify) Report IMPRESSION: NO FRACTURE. CLINICAL HISTORY: Trauma COMPARISON: NONE. FINDINGS: Mild narrowing hip joints. No fracture, dislocation, bone lesion. Degenerative change lower lumbar spine. Ordering Provider: Stacia Dwyer FINAL REPORT Dictated: 07/29/2023 12:40 pm Shahid Bear MD Signed (Electronic Signature): 07/29/2023 12:40 pm Signed by: Shahid Bear MD Transcribed by: BRENDA Technologist: ANDREA Technical Comments Radiation Dose: Ka,r in mGy = . DAP = . Normal [facility] XR Knee Complete 4+ Views Ri jo 07-29-2023 XR Knee Complete 4+ Views Right Exam Date/Time: 07/29/2023 12:24 EDT Reason for Exam: Pain, Traumatic Report IMPRESSION: RIGHT KNEE ARTHROPLASTY. POSSIBLE RIGHT KNEE EFFUSION. NO OSSEOUS FRAGMENTS DISCUSSED CEPHALAD TO HILUM MAY REPRESENT POSTSURGICAL CHANGE, CANNOT EXCLUDE AGE-INDETERMINATE FRACTURE. CLINICAL HISTORY: Pain, Traumatic COMPARISON: NONE. FINDINGS: 3 views of the right knee. Bipolar right knee placement. Osseous fragments just cephalad to right patella.. No abnormal lucency bone prosthetic interface. Soft tissue swelling identified anterior to patella with increased opacity in region of right suprapatella bursa. Calcification right infrapatellar bursa. Ordering Provider: Stacia Dwyer FINAL REPORT Dictated: 07/29/2023 12:42 pm Shahid Bear MD Signed (Electronic Signature): 07/29/2023 12:42 pm Signed by: Shahid Bear MD Transcribed by: BRENDA Technologist: ANDREA Technical Comments Radiation Dose: Kar in mGy = . DAP = . Normal [facility] eGFRon 07-29-2023 eGFR 73 mL/min/1.73 m2 Normal >=59 [facility] Comment on above: Order Comment: Order added by Discern Expert. Performed By: #### 1 [id number] #### [facility] [address] [place] [address] BMPon 07-18-2023 Anion gap [Moles/Vol] 15 mmol/L Normal 6-16 [facility] Comment on above: Performed By: #### 1 [id number], [id number] ####[facility] [address] [place] [address] Calcium [Mass/Vol] 9.8 mg/dL Normal 8.9-11.1 [facility] Comment on above: Performed By: #### 1 1580939, 0058907 ####[facility] [address] [place] [address] Chloride [Moles/Vol] 103 mmol/L Normal 101-111 [facility] Comment on above: Performed By: #### 1 7969915, 8129151 ####[facility] [address] [place] [address] CO2 [Moles/Vol] 26 mmol/L Normal 21-31 [facility] Comment on above: Performed By: #### 1 [id number], 2846498 ####[facility] [address] [place] [address] Creatinine [Mass/Vol] 0.9 mg/dL Normal 0.5-1.3 [facility] Comment on above: Performed By: #### 1 6400677, 3171546 ####[facility] [address] [place] [address] Glucose [Mass/Vol] 90 mg/dL Normal 55-199 [facility] Comment on above: Performed By: #### 1 6722463, 2435620 ####[facility] [address] [place] [address] Potassium [Moles/Vol] 4.6 mmol/L Normal 3.5-5.3 [facility] Comment on above: Performed By: #### 1 4026628, 0879634 ####[facility] [address] [place] [address] Sodium [Moles/Vol] 139 mmol/L Normal 135-145 [facility] Comment on above: Performed By: #### 1 6571733, 2416747 ####[facility] [address] [place] [address] Urea nitrogen [Mass/Vol] 23 mg/dL High 5-21 [facility] Comment on above: Performed By: #### 1 9551077, 0842705 ####[facility] [address] [place] [address] Urea nitrogen/Creatinine [Mass ratio] 26 No Units High 10-20 [facility] Comment on above: Performed By: #### 1 [id number], 2941668 ####[facility] [address] [place] [address] CHEMISTRYOrdered By: SYSTEM SYSTEM on 07-18-2023 Anion gap [Moles/Vol] 15 mmol/L Normal 6 - 16 mEq/L [facility] Calcium [Mass/Vol] 9.8 mg/dL Normal 8.9 - 11. 1 mg/dL [facility] Chloride [Moles/Vol] 103 mmol/L Normal 101 - 1 11 mmol/L [facility] CO2 [Moles/Vol] 26 mmol/L Normal 21 - 31 mmol/L [facility] Creatinine [Mass/Vol] 0.9 mg/dL Normal 0.5 - 1.3 mg/dL [facility] eGFR 63 mL/min/1.73 m2 Normal >=59mL/min /1.73 m2 [facility] Glucose [Mass/Vol] 90 mg/dL Normal 55 - 199 mg/dL [facility] Potassium [Moles/Vol] 4.6 mmol/L Normal 3.5 - 5.3 mmol/L [facility] Sodium [Moles/Vol] 139 mmol/L Normal 135 - 145 mmol/L [facility] Urea nitrogen [Mass/Vol] 23 mg/dL High 5 - 21 mg/dL [facility] Urea nitrogen/Creatinine [Mass ratio] 26 mg/mg High 10 - 20 [facility] Consent for Treatmenton 050 Consent for Treatment [id number] Normal [facility] eGFRon 07-18-2023 eGFR 63 mL/min/1.73 m2 Normal >=59 [facility] Comment on above: Order Comment: Order added by Discern Expert. Performed By: #### 1 [id number], [id number] ####[facility] [address] [place] [address] Discharge Instructionson Discharge Instructions [id number] Normal [facility] ED Clinical Summaryon 2023 ED Clinical Summary Normal [facility] ED Note-Physicianon 07-14-19 ED Note-Physician Normal [facility] Comment on above: Result Comment: Elec tronically Signed By: Reshma Ramirez M.D.\.br\Date and Time Signed: 07/14/23 01:21 EDT ED Patient Education Noteon 07-14-2023 ED Patient Education Note Normal [facility] ED Patient Summaryon 024 ED Patient Summary Normal [facility] BMPon 07-13-2023 Anion gap [Moles/Vol] 9 mmol/L Normal 6-16 [facility] Comment on above: Performed By: #### 1 6087059, 4543874, 3651852, 6815630 ####[facility] [address] [place] [address] Calcium [Mass/Vol] 9.3 mg/dL Normal 8.9-11.1 [facility] Comment on above: Performed By: #### 1 4254538, 2962612, 0140140, 8129311 ####[facility] [address] [place] [address] Chloride [Moles/Vol] 100 mmol/L Low 101-111 [facility] Comment on above: Performed By: #### 1 6373918, 1660807, 6124988, 7726251 ####[facility] [address] [place] [address] CO2 [Moles/Vol] 30 mmol/L Normal 21-31 [facility] Comment on above: Performed By: #### 1 9018579, 2894239, 2671634, 0387986 ####[facility] [address] [place] [address] Creatinine [Mass/Vol] 0.8 mg/dL Normal 0.5-1.3 [facility] Comment on above: Performed By: #### 1 1761421, 6153806, 3224463, 0942593 ####[facility] [address] [place] [address] Glucose [Mass/Vol] 98 mg/dL Normal 55-199 [facility] Comment on above: Performed By: #### 1 2166556, 5877838, 7426360, 5180590 ####[facility] [address] [place] [address] Potassium [Moles/Vol] 4.8 mmol/L Normal 3.5-5.3 [facility] Comment on above: Performed By: #### 1 8600523, 5405571, 6672933, 4388311 ####[facility] [address] [place] [address] Sodium [Moles/Vol] 134 mmol/L Low 135-145 [facility] Comment on above: Performed By: #### 1 1113406, 9327896, 7333029, 5870679 ####[facility] [address] [place] [address] Urea nitrogen [Mass/Vol] 23 mg/dL High 5-21 [facility] Comment on above: Performed By: #### 1 0346796, 8092830, 9867208, 9944954 ####[place] [address] [address] Urea nitrogen/Creatinine [Mass ratio] 29 No Units High 10-20 [facility] Comment on above: Performed By: #### 1 4269361, 0741010, 4055825, 1075594 ####[address] [address] CBC w/ Auto Diffon 4 Basophils/100 WBC (Bld) 0.9 % Normal 0.0-2.0 [facility] Comment on above: Performed By: #### 1 1887445, 5887476, 5767213, 2504939 ####[address] [address] Basophils/Leukocytes Auto (Bld) [Pure # fraction] 0.1 E9/L Normal 0.0-0.2 [facility] Comment on above: Performed By: #### 1 9334414, 5118197, 2401780, 7763456 ####[address] [address] Eosinophils (Bld) [#/Vol] 0.3 E9/L Normal 0.0-0.5 [facility] Comment on above: Performed By: #### 1 6487638, 7542459, 5227874, 2749470 ####[address] [address] Eosinophils/100 WBC (Bld) 4.3 % Normal 0.0-8.0 [facility] Comment on above: Performed By: #### 1 4648736, 3851681, 2800207, 5340156 ####[address] [address] Erythrocyte distribution width (RBC) [Ratio] 14.3 % High 10.9-14.2 [facility] Comment on above: Performed By: #### 1 3581596, 1806108, 5905472, 7414307 ####[address] [address] Hematocrit (Bld) [Volume fraction] 33.0 % Low 34.0-46.0 [facility] Comment on above: Performed By: #### 1 0787555, 0477735, 7702095, 9363818 ####[address] [address] Hemoglobin (Bld) [Mass/Vol] 10.9 g/dL Low 12.0-16.0 [facility] Comment on above: Performed By: #### 1 4061994, 4570770, 5545837, 5035191 ####[address] [address] Lymphocytes (Bld) [#/Vol] 1.2 E9/L Normal 1.0-4.0 [facility] Comment on above: Performed By: #### 1 3825310, 4423623, 6115962, 2713705 ####[address] [address] Lymphocytes/100 WBC (Bld) 18.7 % Normal 14.0-50.0 [facility] Comment on above: Performed By: #### 1 7632802, 0978775, 8827596, 2891188 ####[address] [address] MCH (RBC) [Entitic mass] 29.8 pg Normal 27.0-34.0 [facility] Comment on above: Performed By: #### 1 0986978, 3850642, 5351861, 9933918 ####[address] [address] MCHC (RBC) [Mass/Vol] 33.1 g/dL Normal 31.4-36.0 [facility] Comment on above: Performed By: #### 1 2064369, 9809888, 1190696, 4427517 ####[address] [address] MCV (RBC) [Entitic vol] 90.2 fL Normal 80.0-100.0 [facility] Comment on above: Performed By: #### 1 2241948, 6995091, 0194508, 3876292 ####[facility] [address] [place] [address] Monocytes (Bld) [#/Vol] 0.6 E9/L Normal 0.2-1.0 [facility] Comment on above: Performed By: #### 1 3344097, 6748782, 3136560, 9668391 ####[address] [address] Neutrophils (Bld) [#/Vol] 4.4 E9/L Normal 2.0-7.5 [facility] Comment on above: Performed By: #### 1 8868197, 8283302, 3314827, 0949997 ####[address] [address] Neutrophils/100 WBC (Bld) 66.6 % Normal 36.0-75.0 [facility] Comment on above: Performed By: #### 1 6931696, 5291775, 5195569, 5650982 ####[address] [address] Platelet 227.0 E9/L Normal 150.0-500. 0 [facility] Comment on above: Performed By: #### 1 8057836, 2525216, 6961197, 0760247 ####[address] [address] Platelet mean volume (Bld) [Entitic vol] 6.4 fL Normal 6.4-10.8 [facility] Comment on above: Performed By: #### 1 1826222, 4154475, 3135714, 3632825 ####[place] [place] [address] RBC (Bld) [#/Vol] 3.7 E12/L Low 4.3-5.9 [facility] Comment on above: Performed By: #### 1 5974696, 5898292, 5438468, 3259058 ####[facility] [address] [place] [address] WBC corrected for nucl RBC Auto (Bld) [#/Vol] 6.6 E9/L Normal 4.0-11.0 [facility] Comment on above: Performed By: #### 1 1212587, 9101776, 4552927, 2497342 ####[facility] [address] [place] [address] CHEMISTRYOrdered By: SYSTEM SYSTEM on 07-13-2023 Anion gap [Moles/Vol] 9 mmol/L Normal 6 - 16 mEq/L [facility] Calcium [Mass/Vol] 9.3 mg/dL Normal 8.9 - 11. 1 mg/dL [facility] Chloride [Moles/Vol] 100 mmol/L Low 101 - 1 11 mmol/L [facility] CO2 [Moles/Vol] 30 mmol/L Normal 21 - 31 mmol/L [facility] Creatinine [Mass/Vol] 0.8 mg/dL Normal 0.5 - 1.3 mg/dL [facility] eGFR 73 mL/min/1.73 m2 Normal >=59mL/min /1.73 m2 [facility] Glucose [Mass/Vol] 98 mg/dL Normal 55 - 199 mg/dL [facility] Potassium [Moles/Vol] 4.8 mmol/L Normal 3.5 - 5.3 mmol/L [facility] Sodium [Moles/Vol] 134 mmol/L Low 135 - 145 mmol/L [facility] Troponin 6.30 pg/mL Low 10.10 - 27.10 pg/mL [facility] Comment on above: Interpretive Data: T he 95% CI (Confidence Interval) PPV (Positive Predictive Value) for myocardial infarction in females is 38 pg/mL, in males 51 pg/mL. The results should be used in conjunction with clinical conditions of myocardial infarction. (Access High Sensitivity Troponin I Instructions For Use, Raegan Nolan, October 2017) Urea nitrogen [Mass/Vol] 23 mg/dL High 5 - 21 mg/dL [facility] Urea nitrogen/Creatinine [Mass ratio] 29 mg/mg High 10 - 20 [facility] CHEMISTRYOrdered By: Lab ROP User on 07-13-2023 Glucose [Mass/Vol] 90 mg/dL Normal 55 - 99 mg/dL [facility] POC Subsection Comment on above: Result Comment: Abdullahi beckwith RN/ POC Device SN [id number] Invalid Interpretation Code [facility] Subsection POC User ID [id number] 1 Invalid Interpretation Code [facility] Subsection POC Username PINA HARRIS Invalid Interpretation Code [facility] P[facility] Subsection Capillary Glucose POCon Glucose [Mass/Vol] 90 mg/dL Normal 55-99 [facility] Comment on above: Result Comment: Abdullahi beckwith RN/ Performed By: #### 2 [id number] ####[facility] [address] [place] [address] Consent for Treatmenton Consent for Treatment [id number]#1.00TIFF Normal [facility] HEMATOLOGYOrdered By: SYSTEM SYSTEM on 07-13-2023 Basophils/100 WBC (Bld) 0.9 % Normal 0.0 - 2.0 % Remisol Heme Basophils/Leukocytes Auto (Bld) [Pure # fraction] 0.1 E9/L Normal 0.0 - 0.2 E9/L [facility]e Eosinophils (Bld) [#/Vol] 0.3 E9/L Normal 0.0 - 0.5 E9/L Rem[facility] Heme Eosinophils/100 WBC (Bld) 4.3 % Normal 0.0 - 8.0 % [facility] Heme Erythrocyte distribution width (RBC) [Ratio] 14.3 % High 10.9 - 14.2 % [facility]e Hematocrit (Bld) [Volume fraction] 33.0 % Low 34.0 - 46.0 % Rem[facility] Heme Hemoglobin (Bld) [Mass/Vol] 10.9 g/dL Low 12.0 - 16.0 gm/dL [facility]e Lymphocytes (Bld) [#/Vol] 1.2 E9/L Normal 1.0 - 4.0 E9/L [facility] Heme Lymphocytes/100 WBC (Bld) 18.7 % Normal 14.0 - 50.0 % Remisol Heme MCH (RBC) [Entitic mass] 29.8 pg Normal 27.0 - 34.0 pg Remisol Heme MCHC (RBC) [Mass/Vol] 33.1 g/dL Normal 31.4 - 36.0 gm/dL [facility] Heme MCV (RBC) [Entitic vol] 90.2 fL Normal 80.0 - 100.0 fL [facility] Heme Monocytes (Bld) [#/Vol] 0.6 E9/L Normal 0.2 - 1.0 E9/L Rem[facility] Heme Monocytes/100 WBC (Bld) 9.5 % Normal 4.0 - 14.0 % [facility] Heme Neutrophils (Bld) [#/Vol] 4.4 E9/L Normal 2.0 - 7.5 E9/L Rem[facility] Heme Neutrophils/100 WBC (Bld) 66.6 % Normal 36.0 - 75.0 % [facility] Heme Platelet 227.0 E9/L Normal 150.0 - 500.0 E9/L [facility] Heme Platelet mean volume (Bld) [Entitic vol] 6.4 fL Normal 6.4 - 10.8 fL [facility] Heme RBC (Bld) [#/Vol] 3.7 E12/L Low 4.3 - 5.9 E12/L [facility] Heme WBC corrected for nucl RBC Auto (Bld) [#/Vol] 6.6 E9/L Normal 4.0 - 11.0 E9/L Remisol Heme Pre-Arrival Noteon 4 Pre-Arrival Note Normal [facility] Troponinon 07-13-2023 Troponin 6.30 pg/mL Low 10.10-27.1 0 [facility] Comment on above: Result Comment: The 95% CI (Confidence Interval) PPV (Positive Predictive Value) for myocardial infarction in females is 38 pg/mL, in males 51 pg/mL. The results should be used in conjunction with clinical conditions of myocardial infarction.(Access High Sensitivity Troponin I Instructions For Use, Raegan Nolan, October 2017) Performed By: #### 1 [id number], [id number], [id number], [id number] ####[facility] [address] [place] [address] UA with Cult Rflxon 07-13-19 24 Bilirubin Ql (U) Negative Normal Negative [facility] Comment on above: Performed By: #### 4 [id number] ####[facility] [address] [place] [address] Clarity (U) Clear Normal Clear [facility] Comment on above: Performed By: #### 4 [id number] ####[facility] [address] [place] [address] Color (U) Colorless Abnormal Yellow [facility] Comment on above: Result Comment: Micr oscopic readings are only performed on those samples that meet specific criteria set forth by [facility]. Performed By: #### 4 [id number] ####[facility] [address] [place] [address] Glucose Ql (U) Negative Normal Negative [facility] Comment on above: Performed By: #### 4 [id number] ####[facility] [address] [place] [address] Hemoglobin Auto test strip (U) [Mass/Vol] Negative Normal Negative [facility] Comment on above: Performed By: #### 4 [id number] ####[facility] [address] [place] [address] Ketones Auto test strip Ql (U) Negative Normal Negative [facility] Comment on above: Performed By: #### 4 [id number] ####[facility] [address] [place] [address] Leukocyte esterase Auto test strip Ql (U) Negative Normal Negative [facility] Comment on above: Performed By: #### 4 [id number] ####[facility] [address] [place] [address] Nitrite Auto test strip Ql (U) Negative Normal Negative [facility] Comment on above: Performed By: #### 4 [id number] ####[facility] [address] [place] [place] [address] pH (U) 6.5 [pH] Invalid Interpretation Code 5.0-9.0 [facility] Comment on above: Performed By: #### 4 [id number] ####[facility] [address] [place] [address] Protein Ql (U) Negative Normal Negative [facility] Comment on above: Performed By: #### 4 [id number] ####[facility] [address] [place] [address] Specific gravity (U) [Rel density] 1.007 Invalid Interpretation Code 1.005-1.03 0 [facility] Comment on above: Performed By: #### 4 [id number] ####[facility] [address] [place] [address] Urobilinogen (U) [Mass/Vol] Negative Normal Negative [facility] Comment on above: Performed By: #### 4 [id number] ####[facility] [address] [place], [place] [address] Type of Urine collection method Clean Catch Normal [facility] Comment on above: Performed By: #### 4 [id number] ####[facility] [address] [place] [address] URINALYSISOrdered By: SYSTEM SYSTEM on 07-13-2023 Bilirubin Ql (U) Negative Normal Negativemg /dL [facility] UA Auto SS Clarity (U) Clear (07/13/23 7:58 PM) Normal Clear [facility] UA Auto SS Color (U) Colorless 1 *ABN* (07/13/23 7:58 PM) Invalid Interpretation Code Yellow [facility] UA Auto SS Comment on above: Interpretive Data: M icroscopic readings are only performed on those samples that meet specific criteria set forth by [facility]. Glucose Ql (U) Negative Normal Negativemg /dL FT UA Auto SS Hemoglobin Auto test strip (U) [Mass/Vol] Negative Normal Negativemg /dL FT UA Auto SS Ketones Auto test strip Ql (U) Negative Normal Negativemg /dL FT UA Auto SS Leukocyte esterase Auto test strip Ql (U) Negative Normal NegativeLe u/uL [facility] UA Auto SS Nitrite Auto test strip Ql (U) Negative Normal Negativemg /dL FT UA Auto SS pH (U) 6.5 *NA* (07/13/23 7:58 PM) Invalid Interpretation Code 5.0 - 9.0 FT UA Auto SS Protein Ql (U) Negative Normal Negativemg /dL FT UA Auto SS Specific gravity (U) [Rel density] 1.007 *NA* (07/13/23 7:58 PM) Invalid Interpretation Code 1.005 - 1.030 [facility] UA Auto SS Urobilinogen (U) [Mass/Vol] Negative Normal Negativemg /dL FT UA Auto SS URINALYSISOrdered By: Hank davila on 07-13-2023 UA Spec Desc Clean Catch (07/13/23 7:58 PM) Normal [facility] UA Auto SS Work Phone: eGFRon 07-13-2023 eGFR 73 mL/min/1.73 m2 Normal >=59 [facility] Comment on above: Order Comment: Order added by Discern Expert. Performed By: #### 1 [id number], [id number], 7492952, [id number] ####[facility] [address] [place] [address] Discharge Instructionson Discharge Instructions [id number]#1.00TIFF Normal [facility] BMPon 07-11-2023 Anion gap [Moles/Vol] 9 mmol/L Normal 6-16 [facility] Comment on above: Performed By: #### 2 530353, [id number] ####[facility] [address] [place] [address] Calcium [Mass/Vol] 8.0 mg/dL Low 8.9-11.1 [facility] Comment on above: Performed By: #### 2 585633, [id number] ####[facility] [address] [place] [address] Chloride [Moles/Vol] 96 mmol/L Low 101-111 [facility] Comment on above: Performed By: #### 2 788487, [id number] ####[facility] [address] [place] [address] CO2 [Moles/Vol] 24 mmol/L Normal 21-31 [facility] Comment on above: Performed By: #### 2 535703, [id number] ####[facility] [address] [place] [address] Creatinine [Mass/Vol] 0.7 mg/dL Normal 0.5-1.3 [facility] Comment on above: Performed By: #### 2 361441, [id number] ####[facility] [address] [place] [address] Glucose [Mass/Vol] 137 mg/dL Normal 55-199 [facility] Comment on above: Performed By: #### 2 623583, [id number] ####[facility] [address] [facility] [place] [address] Potassium [Moles/Vol] 3.9 mmol/L Normal 3.5-5.3 [facility] Comment on above: Performed By: #### 2 463183, [id number] ####[facility] [address] [place] [address] Sodium [Moles/Vol] 125 mmol/L Low 135-145 [facility] Comment on above: Performed By: #### 2 227036, [id number] ####[facility] [address] [place] [address] Urea nitrogen [Mass/Vol] 18 mg/dL Normal 5-21 [facility] Comment on above: Performed By: #### 2 830115, [id number] ####[facility] [address] [place] [address] Urea nitrogen/Creatinine [Mass ratio] 26 No Units High 10-20 [facility] Comment on above: Performed By: #### 2 467096, [id number] ####[facility] [address] [place] [address] CHEMISTRYOrdered By: SYSTEM SYSTEM on 07-11-2023 Sodium [Moles/Vol] 129 mmol/L Low 135 - 145 mmol/L [facility] Anion gap [Moles/Vol] 9 mmol/L Normal 6 - 16 mEq/L [facility] Calcium [Mass/Vol] 8.0 mg/dL Low 8.9 - 11. 1 mg/dL [facility] Chloride [Moles/Vol] 96 mmol/L Low 101 - 1 11 mmol/L [facility] CO2 [Moles/Vol] 24 mmol/L Normal 21 - 31 mmol/L [facility] Creatinine [Mass/Vol] 0.7 mg/dL Normal 0.5 - 1.3 mg/dL [facility] eGFR 85 mL/min/1.73 m2 Normal >=59mL/min /1.73 m2 [facility] Glucose [Mass/Vol] 137 mg/dL Normal 55 - 199 mg/dL [facility] Potassium [Moles/Vol] 3.9 mmol/L Normal 3.5 - 5.3 mmol/L [facility] Sodium [Moles/Vol] 125 mmol/L Low 135 - 145 mmol/L [facility] Urea nitrogen [Mass/Vol] 18 mg/dL Normal 5 - 21 mg/dL [facility] Urea nitrogen/Creatinine [Mass ratio] 26 mg/mg High 10 - 20 [facility] Sodium [Moles/Vol] 127 mmol/L Low 135 - 145 mmol/L [facility] Discharge Note-Nursingon Discharge Note-Nursing Normal [facility] Inpatient Clinical Summaryon 07-11-2023 Inpatient Clinical Summary Normal [facility] Inpatient Patient Summaryon 07-11-2023 Inpatient Patient Summary Normal [facility] Interdisciplinary Note - Janette e Manageron 07-11-2023 Interdisciplinary Note - Circus Rider [facility] Comment on above: Result Comment: Elec tronically Signed By: Jg GONZALEZ, Stacey\.br\Date and Time Signed: 07/11/23 11:58 EDT Monitor Recordon 07-11-2023 Monitor Record [id number]#1.00TIFF [facility] Monitor Record [id number]#1.00TIFF [facility] Monitor Record [id number]#1.00TIFF Normal [facility] Monitor Record [id number]#1.00TIFF [facility] Monitor Record [id number]#1.00TIFF [facility] Sodiumon 07-11-2023 Sodium [Moles/Vol] 129 mmol/L Low 135-145 [facility] Comment on above: Performed By: #### 2 612113 ####[facility] [address] [place] [address] Sodium [Moles/Vol] 127 mmol/L Low 135-145 [facility] Comment on above: Performed By: #### 2 529399 ####[facility] [address] [place] [address] Sodium [Moles/Vol] 129 mmol/L Low 135-145 [facility] Comment on above: Performed By: #### 2 879720 ####[facility] [address] [place] [address] eGFRon 07-11-2023 eGFR 85 mL/min/1.73 m2 Normal >=59 [facility] Comment on above: Order Comment: Order added by Discern Expert. Performed By: #### 2 243081, [id number] ####[facility] [address] [place] [address] BMPon 07-10-2023 Anion gap [Moles/Vol] 8 mmol/L Normal 6-16 [facility] Comment on above: Performed By: #### 2 915497, 05849127, 1906313 ####[facility] [address] [place] [address] Calcium [Mass/Vol] 8.2 mg/dL Low 8.9-11.1 [facility] Comment on above: Performed By: #### 2 993724, 70761905, 7282280 ####[facility] [address] [place] [address] Chloride [Moles/Vol] 92 mmol/L Low 101-111 [facility] Comment on above: Performed By: #### 2 506747, 03373739, 0514847 ####[facility] [address] [place] [address] CO2 [Moles/Vol] 27 mmol/L Normal 21-31 [facility] Comment on above: Performed By: #### 2 009173, 46851312, 8704245 ####[facility] [address] [place] [address] Creatinine [Mass/Vol] 0.7 mg/dL Normal 0.5-1.3 [facility] Comment on above: Performed By: #### 2 664962, 24651174, 5013390 ####[facility] [address] [place] [address] Glucose [Mass/Vol] 87 mg/dL Normal 55-199 [facility] Comment on above: Performed By: #### 2 741409, 22408310, 1924019 ####[facility] [address] [place] [address] Potassium [Moles/Vol] 4.4 mmol/L Normal 3.5-5.3 [facility] Comment on above: Performed By: #### 2 617591, 12606582, 8998062 ####[address] [address] Sodium [Moles/Vol] 123 mmol/L Low 135-145 [facility] Comment on above: Performed By: #### 2 895166, 35307180, 1758689 ####[facility] [address] [place] [address] Urea nitrogen [Mass/Vol] 17 mg/dL Normal 5-21 [facility] Comment on above: Performed By: #### 2 920720, 75111184, 8044167 ####[facility] [address] [place] [address] Urea nitrogen/Creatinine [Mass ratio] 24 No Units High 10-20 [facility] Comment on above: Performed By: #### 2 661034, 40022387, 2283000 ####[facility] [address] [place] [address] CBC w/ Auto Diffon 4 Basophils/100 WBC (Bld) 0.7 % Normal 0.0-2.0 [facility] Comment on above: Performed By: #### 2 297140, 20765282, 8630923 ####[facility] [address] [address] Basophils/Leukocytes Auto (Bld) [Pure # fraction] 0.0 E9/L Normal 0.0-0.2 [facility] Comment on above: Performed By: #### 2 953825, 50002247, 1689437 ####[address] [address] Eosinophils (Bld) [#/Vol] 0.3 E9/L Normal 0.0-0.5 [facility] Comment on above: Performed By: #### 2 649274, 70889944, 3663050 ####[address] [address] Eosinophils/100 WBC (Bld) 4.3 % Normal 0.0-8.0 [facility] Comment on above: Performed By: #### 2 320201, 72189621, 9890348 ####[place] [address]3657 Erythrocyte distribution width (RBC) [Ratio] 13.8 % Normal 10.9-14.2 [facility] Comment on above: Performed By: #### 2 561913, 63116193, 9036985 ####[address] [address] Hematocrit (Bld) [Volume fraction] 28.8 % Low 34.0-46.0 [facility] Comment on above: Performed By: #### 2 273107, 04325809, 0921520 ####[address] [address] Hemoglobin (Bld) [Mass/Vol] 10.0 g/dL Low 12.0-16.0 [facility] Comment on above: Performed By: #### 2 389267, 37335378, 1390735 ####[address] [address] Lymphocytes (Bld) [#/Vol] 1.5 E9/L Normal 1.0-4.0 [facility] Comment on above: Performed By: #### 2 114304, 52342473, 3927006 ####[address] [address] Lymphocytes/100 WBC (Bld) 21.5 % Normal 14.0-50.0 [facility] Comment on above: Performed By: #### 2 456150, 50366592, 0697049 ####[address] [address] MCH (RBC) [Entitic mass] 30.5 pg Normal 27.0-34.0 [facility] Comment on above: Performed By: #### 2 563113, 48370045, 3197694 ####[address] [address] MCHC (RBC) [Mass/Vol] 34.6 g/dL Normal 31.4-36.0 [facility] Comment on above: Performed By: #### 2 997951, 74325058, 4913953 ####[address] [address] MCV (RBC) [Entitic vol] 88.3 fL Normal 80.0-100.0 [facility] Comment on above: Performed By: #### 2 119942, 07594541, 2271227 ####[address] [address] Monocytes (Bld) [#/Vol] 0.6 E9/L Normal 0.2-1.0 [facility] Comment on above: Performed By: #### 2 713838, 47850902, 8123575 ####[address] [address] Neutrophils (Bld) [#/Vol] 4.4 E9/L Normal 2.0-7.5 [facility] Comment on above: Performed By: #### 2 117021, 76293557, 2702461 ####[address] [address] Neutrophils/100 WBC (Bld) 64.1 % Normal 36.0-75.0 [facility] Comment on above: Performed By: #### 2 311653, 05689066, 6771533 ####[facility] [address] [place] [address] Platelet mean volume (Bld) [Entitic vol] 6.7 fL Normal 6.4-10.8 [facility] Comment on above: Performed By: #### 2 301525, 81508353, 0211742 ####[address] [address] Platelets (Bld) [#/Vol] 183.0 E9/L Normal 150.0-500. 0 [facility] Comment on above: Performed By: #### 2 814851, 48982642, 6101063 ####[place] [address] [place] [address] RBC (Bld) [#/Vol] 3.3 E12/L Low 4.3-5.9 [facility] Comment on above: Performed By: #### 2 125723, 39848817, 4549695 ####[facility] [address] [place] [address] WBC corrected for nucl RBC Auto (Bld) [#/Vol] 6.9 E9/L Normal 4.0-11.0 [facility] Comment on above: Performed By: #### 2 773577, 71911478, 9866218 ####[facility] [address] [place] [address] CHEMISTRYOrdered By: SYSTEM SYSTEM on 07-10-2023 Anion gap [Moles/Vol] 8 mmol/L Normal 6 - 16 mEq/L [facility] Calcium [Mass/Vol] 8.2 mg/dL Low 8.9 - 11. 1 mg/dL [facility] Chloride [Moles/Vol] 92 mmol/L Low 101 - 1 11 mmol/L [facility] CO2 [Moles/Vol] 27 mmol/L Normal 21 - 31 mmol/L [facility] Creatinine [Mass/Vol] 0.7 mg/dL Normal 0.5 - 1.3 mg/dL [facility] eGFR 85 mL/min/1.73 m2 Normal >=59mL/min /1.73 m2 [facility] Glucose [Mass/Vol] 87 mg/dL Normal 55 - 199 mg/dL [facility] Potassium [Moles/Vol] 4.4 mmol/L Normal 3.5 - 5.3 mmol/L [facility] Urea nitrogen [Mass/Vol] 17 mg/dL Normal 5 - 21 mg/dL [facility] Urea nitrogen/Creatinine [Mass ratio] 24 mg/mg High 10 - 20 [facility] HEMATOLOGYOrdered By: SYSTEM SYSTEM on 07-10-2023 Basophils/100 WBC (Bld) 0.7 % Normal 0.0 - 2.0 % Remisol Heme Basophils/Leukocytes Auto (Bld) [Pure # fraction] 0.0 E9/L Normal 0.0 - 0.2 E9/L [facility]e Eosinophils (Bld) [#/Vol] 0.3 E9/L Normal 0.0 - 0.5 E9/L [facility]e Eosinophils/100 WBC (Bld) 4.3 % Normal 0.0 - 8.0 % [facility]e Erythrocyte distribution width (RBC) [Ratio] 13.8 % Normal 10.9 - 14.2 % [facility] Hematocrit (Bld) [Volume fraction] 28.8 % Low 34.0 - 46.0 % [facility]e Hemoglobin (Bld) [Mass/Vol] 10.0 g/dL Low 12.0 - 16.0 gm/dL [facility] Heme Lymphocytes (Bld) [#/Vol] 1.5 E9/L Normal 1.0 - 4.0 E9/L [facility]e Lymphocytes/100 WBC (Bld) 21.5 % Normal 14.0 - 50.0 % Rem[facility] Heme MCH (RBC) [Entitic mass] 30.5 pg Normal 27.0 - 34.0 pg Remisol Heme MCHC (RBC) [Mass/Vol] 34.6 g/dL Normal 31.4 - 36.0 gm/dL [facility]e MCV (RBC) [Entitic vol] 88.3 fL Normal 80.0 - 100.0 fL [facility]e Monocytes (Bld) [#/Vol] 0.6 E9/L Normal 0.2 - 1.0 E9/L [facility]e Monocytes/100 WBC (Bld) 9.4 % Normal 4.0 - 14.0 % [facility]e Neutrophils (Bld) [#/Vol] 4.4 E9/L Normal 2.0 - 7.5 E9/L [facility]e Neutrophils/100 WBC (Bld) 64.1 % Normal 36.0 - 75.0 % [facility] Platelet mean volume (Bld) [Entitic vol] 6.7 fL Normal 6.4 - 10.8 fL [facility]e Platelets (Bld) [#/Vol] 183.0 E9/L Normal 150.0 - 500.0 E9/L [facility] Heme RBC (Bld) [#/Vol] 3.3 E12/L Low 4.3 - 5.9 E12/L [facility]e WBC corrected for nucl RBC Auto (Bld) [#/Vol] 6.9 E9/L Normal 4.0 - 11.0 E9/L [facility] Interdisciplinary Note - Janette e Manageron 07-10-2023 Interdisciplinary Note - Circus Rider [facility] Comment on above: Result Comment: Elec tronically Signed By: Stacey Gregorio RN\.br\Date and Time Signed: 07/10/23 10:59 EDT Monitor Recordon 07-10-2023 Monitor Record [id number]#1.00TIFF [facility] Monitor Record [id number]#1.00TIFF [facility] Monitor Record [id number]#1.00TIFF [facility] Progress Note-Physicianon Progress Note-Physician [facility] Comment on above: Result Comment: Elec tronically Signed By: Pina Mendez CNP\.br\Date and Time Signed: 07/10/23 14:53 EDT\.br\Electronically Co-Signed By: Faina Alatorre MD.br\Date and Time Co-Signed: 07/10/23 20:35 EDT Progress Note-Physician [facility] Comment on above: Result Comment: Elec tronically Signed By: Lima ROSAS CNP\.br\Date and Time Signed: 07/10/23 11:47 EDT\.br\Electronically Co-Signed By: Mickie Falcon MD\.br\Date and Time Co-Signed: 07/10/23 16:46 EDT Sodiumon 07-10-2023 Sodium [Moles/Vol] 124 mmol/L Low 135-145 [facility] Comment on above: Performed By: #### 2 036704 ####[address] [address] Sodium [Moles/Vol] 123 mmol/L Low 135-145 [facility] Comment on above: Performed By: #### 2 191717 ####[address] [address] Sodium [Moles/Vol] 122 mmol/L Low 135-145 [facility] Comment on above: Performed By: #### 2 867720 ####[address] [address] Sodium [Moles/Vol] 121 mmol/L Low 135-145 [facility] Comment on above: Performed By: #### 2 155009 ####[address] [address] Sodium [Moles/Vol] 121 mmol/L Low 135-145 [facility] Comment on above: Performed By: #### 2 835203 ####[address] [address] U OsmolalityOrdered By: Otto Vilar on 07-10-2023 U Osmolality 248 mOsm/kg Normal 50-1400 [facility] Man UA SS Comment on above: Performed By: #### 2 364228, 6830374 ####[facility] [address] [place] [address] U SodiumOrdered By: SYSTEM S YSTEM on 07-10-2023 Sodium [Moles/Vol] 16 mmol/L Invalid Interpretation Code [facility] Comment on above: Performed By: #### 2 308064, 5694473 ####[facility] [address] [place] [address] eGFRon 07-10-2023 eGFR 85 mL/min/1.73 m2 Normal >=59 [facility] Comment on above: Order Comment: Order added by Discern Expert. Performed By: #### 2 097185, 30881113, 1506712 ####[facility] [address] [place] [address] BMPon 07-09-2023 Creatinine [Mass/Vol] 0.6 mg/dL Normal 0.5-1.3 [facility] Comment on above: Performed By: #### 2 047567, 6793973, 28522273 ####[facility] [address] [place] [address] Urea nitrogen/Creatinine [Mass ratio] 27 No Units High 10-20 [facility] Comment on above: Performed By: #### 2 161668, 2085111, 31947844 ####[facility] [address] [place] [address] Anion gap [Moles/Vol] 10 mmol/L Normal 6-16 [facility] Comment on above: Performed By: #### 2 628565, 3481613, 59836659 ####[facility] [address] [place] [address] Calcium [Mass/Vol] 8.4 mg/dL Low 8.9-11.1 [facility] Comment on above: Performed By: #### 2 193203, 9774770, 38977984 ####[facility] [address] [place] [address] Chloride [Moles/Vol] 91 mmol/L Low 101-111 [facility] Comment on above: Performed By: #### 2 917989, 5101200, 96581290 ####[facility] [address] [place] [address] CO2 [Moles/Vol] 26 mmol/L Normal 21-31 [facility] Comment on above: Performed By: #### 2 858428, 2662650, 35225574 ####[facility] [address] [place] [address] Glucose [Mass/Vol] 90 mg/dL Normal 55-199 [facility] Comment on above: Performed By: #### 2 895621, 1080689, [id number] ####[facility] [address] [place] [address] Potassium [Moles/Vol] 3.7 mmol/L Normal 3.5-5.3 [facility] Comment on above: Performed By: #### 2 765882, 2911363, 84573351 ####[facility] [address] [place] [address] Urea nitrogen [Mass/Vol] 16 mg/dL Normal 5-21 [facility] Comment on above: Performed By: #### 2 940831, 0676263, 63079658 ####[facility] [address] [place] [address] Anion gap [Moles/Vol] 11 mmol/L Normal 6-16 [facility] Comment on above: Performed By: #### 2 418013, 43949334, 4992624, 64728251, 61334142, 13057530 ####[facility] [address] [place] [address] Calcium [Mass/Vol] 8.6 mg/dL Low 8.9-11.1 [facility] Comment on above: Performed By: #### 2 416561, 45973105, 4128018, 40206679, 56929488, 20443228 ####[facility] [address] [place] [address] Chloride [Moles/Vol] 86 mmol/L Low 101-111 [facility] Comment on above: Performed By: #### 2 196251, 40738941, 6658979, 06528362, 81207650, 40981300 ####[facility] [address] [place] [address] CO2 [Moles/Vol] 24 mmol/L Normal 21-31 [facility] Comment on above: Performed By: #### 2 167796, 29927714, 2424165, 62524066, 58141516, 14086539 ####[facility] [address] [place] [address] Creatinine [Mass/Vol] 0.8 mg/dL Normal 0.5-1.3 [facility] Comment on above: Performed By: #### 2 952129, 80420026, 3051905, 81600937, 56279242, 66373425 ####[facility] [address] [place] [address] Glucose [Mass/Vol] 110 mg/dL Normal 55-199 [facility] Comment on above: Performed By: #### 2 179020, 41633517, 6936212, 09628145, 35868015, 11151246 ####[facility] [address] [place] [address] Potassium [Moles/Vol] 3.8 mmol/L Normal 3.5-5.3 [facility] Comment on above: Performed By: #### 2 941636, 88431843, 4285828, 21118443, 79869628, 59502086 ####[facility] [address] [place] [address] Urea nitrogen [Mass/Vol] 21 mg/dL Normal 5-21 [facility] Comment on above: Performed By: #### 2 795549, 02968023, 0127198, 83567245, 88577929, 35621975 ####[facility] [address] [place] [address] Urea nitrogen/Creatinine [Mass ratio] 26 No Units High 10-20 [facility] Comment on above: Performed By: #### 2 313661, 90029577, 2469510, 33664887, 92835794, 49302457 ####[facility] [address] [place] [address] Sodium [Moles/Vol] 117 mmol/L Abnormal 135-145 [facility] Comment on above: Result Comment: Crit ical Result Verified by Repeat AnalysisCritical Result S_NA of 117 Called to and read back by: LUIS E WEN/BRADLEY at: 07/08/2023 23:26:20 by:RICARDO SUAZO Performed By: #### 2 634042, 98605735, 7400356, 61741606, 40001902, 85628924 ####[facility] [address] [place] [address] BNPon 07-09-2023 Natriuretic peptide B (Bld) [Mass/Vol] 90 pg/mL High 5-80 [facility] Comment on above: Performed By: #### 2 362185, 89194237, 9345650, 97005627, 19210239, 75864565 ####[facility] [address] [place] [address] CBC w/ Auto Diffon Basophils/100 WBC (Bld) 0.6 % Normal 0.0-2.0 [facility] Comment on above: Performed By: #### 2 609233, 84583877, 6652041, 50405258, 18831729, 54390650 ####[facility] [address] [place] [address] Basophils/Leukocytes Auto (Bld) [Pure # fraction] 0.0 E9/L Normal 0.0-0.2 [facility] Comment on above: Performed By: #### 2 274601, 03269707, 6969091, 08412428, 86198026, 45580611 ####[facility] [address] [place] [address] Eosinophils (Bld) [#/Vol] 0.3 E9/L Normal 0.0-0.5 [facility] Comment on above: Performed By: #### 2 668623, 54344544, 0913394, 92436693, 83418899, 40662244 ####[facility] [address] [place] [address] Eosinophils/100 WBC (Bld) 3.1 % Normal 0.0-8.0 [facility] Comment on above: Performed By: #### 2 925929, 99515639, 5876309, 98054906, 23354548, 08070521 ####[address] [place] [address] Erythrocyte distribution width (RBC) [Ratio] 13.7 % Normal 10.9-14.2 [facility] Comment on above: Performed By: #### 2 031247, 64101769, 9379101, 61855551, 80317446, 13384150 ####[address] [place] [address] Hematocrit (Bld) [Volume fraction] 31.2 % Low 34.0-46.0 [facility] Comment on above: Performed By: #### 2 934444, 65263490, 8607229, 74357224, 51677242, 83331182 ####[address] [address] Hemoglobin (Bld) [Mass/Vol] 10.7 g/dL Low 12.0-16.0 [facility] Comment on above: Performed By: #### 2 461398, 70130542, 6534021, 09433179, 77664180, 85772797 ####[address] [address] Lymphocytes (Bld) [#/Vol] 1.4 E9/L Normal 1.0-4.0 [facility] Comment on above: Performed By: #### 2 779099, 96223696, 1589224, 75412598, 05373747, 27894253 ####[address] [place] [address] Lymphocytes/100 WBC (Bld) 16.9 % Normal 14.0-50.0 [facility] Comment on above: Performed By: #### 2 643570, 43255710, 7980570, 63736023, 08029330, 79910317 ####[facility] [address] [place] [address] MCH (RBC) [Entitic mass] 30.1 pg Normal 27.0-34.0 [facility] Comment on above: Performed By: #### 2 460796, 36071346, 2542246, 36730409, 91324414, 50765114 ####[address] [address] MCHC (RBC) [Mass/Vol] 34.4 g/dL Normal 31.4-36.0 [facility] Comment on above: Performed By: #### 2 907493, 41630577, 3909485, 79774060, 97866360, 80682714 ####[address] [address] MCV (RBC) [Entitic vol] 87.6 fL Normal 80.0-100.0 [facility] Comment on above: Performed By: #### 2 066340, 89355191, 1117165, 86828323, 77981000, 17022530 ####[address] [address] Monocytes (Bld) [#/Vol] 0.9 E9/L Normal 0.2-1.0 [facility] Comment on above: Performed By: #### 2 969988, 06187945, 3421274, 61849409, 11011280, 40222410 ####[address] [address] Neutrophils (Bld) [#/Vol] 5.6 E9/L Normal 2.0-7.5 [facility] Comment on above: Performed By: #### 2 775783, 29052323, 1209922, 84928261, 54286858, 40749704 ####[address] [address] Neutrophils/100 WBC (Bld) 68.6 % Normal 36.0-75.0 [facility] Comment on above: Performed By: #### 2 910648, 50358357, 8158148, 36251320, 69492615, 70661664 ####[facility] [address] [place] [address] Platelet 227.0 E9/L Normal 150.0-500. 0 [facility] Comment on above: Performed By: #### 2 377669, 45350392, 4960711, 28593974, 98522562, 67691117 ####[facility] [address] [place] [address] Platelet mean volume (Bld) [Entitic vol] 6.4 fL Normal 6.4-10.8 [facility] Comment on above: Performed By: #### 2 977851, 73518935, 6564229, 41315546, 09260326, 40594309 ####[address] [place] [address] RBC (Bld) [#/Vol] 3.6 E12/L Low 4.3-5.9 [facility] Comment on above: Performed By: #### 2 723673, 60239364, 8162614, 94208783, 45233935, 19814099 ####[address] [place] [address] WBC corrected for nucl RBC Auto (Bld) [#/Vol] 8.2 E9/L Normal 4.0-11.0 [facility] Comment on above: Performed By: #### 2 790870, 01702343, 7986517, 44831568, 52130212, 02119021 ####[address] [place] [address] CHEMISTRYOrdered By: SYSTEM SYSTEM on 07-09-2023 Anion gap [Moles/Vol] 10 mmol/L Normal 6 - 16 mEq/L [facility] Calcium [Mass/Vol] 8.4 mg/dL Low 8.9 - 11. 1 mg/dL [facility] Chloride [Moles/Vol] 91 mmol/L Low 101 - 1 11 mmol/L [facility] CO2 [Moles/Vol] 26 mmol/L Normal 21 - 31 mmol/L [facility] Creatinine [Mass/Vol] 0.6 mg/dL Normal 0.5 - 1.3 mg/dL [facility] eGFR 88 mL/min/1.73 m2 Normal >=59mL/min /1.73 m2 [facility] Glucose [Mass/Vol] 90 mg/dL Normal 55 - 199 mg/dL [facility] Potassium [Moles/Vol] 3.7 mmol/L Normal 3.5 - 5.3 mmol/L [facility] Urea nitrogen [Mass/Vol] 16 mg/dL Normal 5 - 21 mg/dL [facility] Urea nitrogen/Creatinine [Mass ratio] 27 mg/mg High 10 - 20 [facility] Sodium [Moles/Vol] 26 mmol/L Invalid Interpretation Code [facility] CHEMISTRYOrdered By: Shreya Suazo on 07-09-2023 U Osmolality 192 mOsm/kg Normal 50 - 1400 mOsm/kg [facility] Man UA SS CT Chest w/o Contraston 06-11 CT Chest w/o Contrast Normal [facility] Consultation Noteon 07-09-19 24 Consultation Note Normal [facility] Comment on above: Result Comment: Elec tronically Signed By: Dyan Alatorre MD\.br\Date and Time Signed: 07/09/23 15:25 EDT ED Clinical Summaryon 2023 ED Clinical Summary Normal [facility] ED Note-Physicianon 07-09-19 24 ED Note-Physician Normal [facility] Comment on above: Result Comment: Elec tronically Signed By: Benton Sutherland DO\.br\Date and Time Signed: 07/09/23 01:30 EDT ED Patient Education Noteon 07-09-2023 ED Patient Education Note Normal [facility] ED Patient Summaryon 024 ED Patient Summary Normal [facility] Influenza A&B Agon 4 Influenzae A Ag Negative Normal Negative [facility] Comment on above: Performed By: #### 2 [id number], 64716017 ####[facility] [address] [place] [address] Influenzae B Ag Negative Normal Negative [facility] Comment on above: Result Comment: Test sensitivity and specificity vary for age group, specimen type, antigen types, and prevalence of disease. Test results must be evaluated in conjunction with other clinical data available to the physician. Individuals who received nasally administered Influenza A vaccine may have positive test results up to 3 days after vaccination. Performed By: #### 2 [id number], 11840214 ####[facility] [address] [place] [address] Interdisciplinary Note - Janette e Manageron 07-09-2023 Interdisciplinary Note - Circus Rider Normal [facility] Comment on above: Result Comment: Elec tronically Signed By: Jg GONZALEZ, Stacey\.br\Date and Time Signed: 07/09/23 11:09 EDT Message from Medicareon 06-11 Message from Medicare [id number]#1.00TIFF Normal [facility] Monitor Recordon 07-09-2023 Monitor Record [id number]#1.00TIFF Normal [facility] Monitor Record [id number]#1.00TIFF Normal [facility] Monitor Record [id number]#1.00TIFF Normal [facility] PT & PTTon 07-09-2023 aPTT Coag (PPP) [Time] 30.7 second(s) Normal 25.1-36.5 [facility] Comment on above: Result Comment: Para meter 15 days - 4 weeks 1 - 5 months 6 - 11 months 1 - 5 years 6 - 10 years 11 - 17 years PTT Mean: 35.4 (27.6-45.6) Mean: 33.5 (24.8-40.7) Mean: 32.4 (25.1-40.7) Mean: 31.6 (24.0-39.2) Mean: 31.6 (26.9-38.7) Mean: 31.0 (24.6-38.4) Pediatric Reference ranges were obtained from a study by rudi Haas. prepared from 1437 samples obtained at 7 different centers using the same coagulation reagent and instrumentation as [facility]. Currently there are no coagulation studies available worldwide for children to 14 days, and no normal ranges. Heparin therapeutic range (represented by Anti-Factor Xa activity of 0.2 - 0.4 U/mL) corresponds to PTT of 56.6 - 109.0 sec. Performed By: #### 2 933340, 24444205, 6324629, 85477807, 65058793, 57679368 ####[facility] [address] [place] [address] INR Coag (PPP) [Relative time] 0.91 {INR} Invalid Interpretation Code [facility] Comment on above: Result Comment: INR results are specifically intended to assess patients stabilized on long-term Anticoagulation therapy suggested INR?s ?Less Intensive Anticoagulation? 2.0 ? 3.0Conventional Range 3.0 ? 4.5 Performed By: #### 2 637393, 60856898, 6209765, 89082602, 90449335, 35185740 ####[facility] [address] [place] [address] PT Coag (PPP) [Time] 10.2 second(s) Normal 9.4-12.5 [facility] Comment on above: Result Comment: 15 d ays - 4 weeks 1 - 5 months 6 -11 months 1 ? 5 years 6 ? 10 years 11 -17 years Mean: 11.2 (9.5 ? 12.6) Mean: 11.0 (9.7 ? 12.8) Mean: 11.0 (9.8 ? 13.0) Mean: 11.3 (9.9 ? 13.4) Mean: 11.7 (10.0 ? 14.6) Mean: 11.8 (10.0 - 14.1) Pediatric Reference ranges were obtained from a study by dominik Haas al. prepared from 1437 samples obtained at 7 different centers using the same coagulation reagent and instrumentation as [facility]. Currently there are no coagulation studies available worldwide for children to 14 days, and no normal ranges. Performed By: #### 2 050639, 02766514, 6896101, 93712671, 89513847, 41985869 ####[facility] [address] [place] [address] Progress Note-Physicianon Progress Note-Physician Normal [facility] Comment on above: Result Comment: Elec tronically Signed By: Lima ROSAS CNP\.br\Date and Time Signed: 07/09/23 11:59 EDT\.br\Electronically Co-Signed By: Mickie [place] MD\.br\Date and Time Co-Signed: 07/09/23 13:28 EDT Rapid COVID Antigen (MC)on 07-09-2023 Rapid COV Int NEG Ctl Pass Normal Fis [facility] Comment on above: Performed By: #### 2 [id number], 12064970 ####[address] [place] [address] Rapid COV Int POS Ctl Pass Normal Fis [facility] Comment on above: Performed By: #### 2 [id number], 83793661 ####[address] [address] SARS-CoV+SARS-CoV-2 (COVID-19) Ag IA.rapid Ql (Resp) Not detected Normal Not Detected [facility] Comment on above: Result Comment: The [employer]? System for Rapid Detection of SARS-CoV-2 is a chromatographic digital immunoassay intended for the direct and qualitative detection of SARS-CoV-2 nucleocapsid antigens in nasal swabs from individuals who are suspected of COVID-19 by their healthcare provider within the first five days of the onset of symptoms. Negative results should be treated as presumptive, do not rule out SARS-CoV-2 infection and should not be used as the sole basis for treatment or patient management decisions, including infection control decisions. Negative results should be considered in the context of a patient?s recent exposures, history and the presence of clinical signs and symptoms consistent with COVID-19, and confirmed with a molecular assay, if necessary, for patient management. For in vitro diagnostic use. In the [place], only for use under an Emergency Use Authorization. In the [place], this test has not been FDA cleared or approved; this test has been authorized by FDA under an EUA for use by authorized laboratories; use by laboratories certified under the CLIA, 42 U.S.C. ?263a, that meet requirements to perform moderate, high, or waived complexity tests and at the Point of Care (POC), i.e., in patient care settings operating under a CLIA Certificate of Waiver, Certificate of Compliance, or Certificate of Accreditation.This test has been authorized only for the detection of proteins from SARS-CoV-2, not for any other viruses or pathogens; and, in the [place], this test is only authorized for the duration of the declaration that circumstances exist justifying the authorization of emergency use of in vitro diagnostics for detection and/or diagnosis of the virus that causes COVID-19 under Section 564(b)(1) of the Act, 21 U.S.C. ? 360bbb-3(b)(1), unless the authorization is terminated or revoked sooner. Performed By: #### 2 [id number], 76893039 ####[address] [place] [address] Respiratory Panel by PCRon 0 07-09-2023 Adenovirus DNA ALEXANDRU+non-probe Ql (Nph) Not detected Normal [facility] Comment on above: Result Comment: Test ing was performed using nucleic acid amplification including Influenza A, Influenza A H1, Influenza A H3, Influenza B, RSV A, RSV B, Adenovirus, Human Metapneumovirus, Parainfluenza 1,2,3, and 4, Rhinovirus, Bordetella parapertussis/bronchiseptica, Bordetella holmesii, and Bordetella pertussis. Performed By: #### 1 [id number] ####[facility] [address] [place] [address] B. parapertussis DNA ALEXANDRU+probe Ql (Upper resp) Not detected Normal Not Detected [facility] Comment on above: Performed By: #### 1 [id number] ####[address] [place] [address] B. pertussis DNA ALEXANDRU+probe Ql (Upper resp) Not detected Normal Not Detected [facility] Comment on above: Performed By: #### 1 [id number] ####[facility] [place] [address] FLUAV H1 RNA ALEXANDRU+non-probe Ql (Nph) Not detected Normal [facility] Comment on above: Performed By: #### 1 [id number] ####[facility] [address] [place] [place] [address] FLUAV H3 RNA ALEXANDRU+non-probe Ql (Nph) Not detected Normal [facility] Comment on above: Performed By: #### 1 [id number] ####[facility] [address] [place] [address] FLUAV RNA ALEXANDRU+non-probe Ql (Nph) Not detected Normal [facility] Comment on above: Performed By: #### 1 [id number] ####[facility] [address] [place] [address] FLUBV RNA ALEXANDRU+non-probe Ql (Nph) Not detected Normal [facility] Comment on above: Performed By: #### 1 [id number] ####[facility] [address] [place] [address] Human Metapneumovirus Not detected Normal [facility] Comment on above: Result Comment: This test result should be correlated with clinical presentations and medical history by a healthcare provider to determine its clinical significance. Performed By: #### 1 [id number] ####[facility] [address] [place] [address] Parainfluenza virus 1 RNA ALEXANDRU+non-probe Ql (Nph) Not detected Normal [facility] Comment on above: Performed By: #### 1 870343560 ####[facility] [address] [place] [address] Parainfluenza virus 2 RNA ALEXANDRU+non-probe Ql (Nph) Not detected Normal [facility] Comment on above: Performed By: #### 1 140459171 ####[facility] [address] [place] [address] Parainfluenza virus 3 RNA ALEXANDRU+non-probe Ql (Nph) Not detected Normal [facility] Comment on above: Performed By: #### 1 610329865 ####[facility] [address] [place] [address] Parainfluenza virus 4 RNA ALEXANDRU+non-probe Ql (Nph) Not detected Normal [facility] Comment on above: Performed By: #### 1 [id number] ####[facility] [address] [place] [address] Resp Panel Intrl QC Pass Normal [facility] Comment on above: Performed By: #### 1 [id number] ####[address] [place] [address] Rhinovirus+Enterovirus RNA ALEXANDRU+non-probe Ql (Nph) Not detected Normal [facility] Comment on above: Performed By: #### 1 [id number] ####[address] [place] [address] RSV RNA ALEXANDRU+non-probe Ql (Nph) Not detected Normal [facility] Comment on above: Performed By: #### 1 [id number] ####[address] [place] [address] Sodiumon 07-09-2023 Sodium [Moles/Vol] 120 mmol/L Abnormal 135-145 [facility] Comment on above: Performed By: #### 2 828528 ####[address] [place] [address] Sodium [Moles/Vol] 123 mmol/L Low 135-145 [facility] Comment on above: Performed By: #### 2 028540 ####[facility] [address] [place] [address] Sodium [Moles/Vol] 123 mmol/L Low 135-145 [facility] Comment on above: Performed By: #### 2 261790 ####[address] [address] Sodium [Moles/Vol] 123 mmol/L Low 135-145 [facility] Comment on above: Performed By: #### 2 603961, 1992190, 00705103 ####[address] [place] [address] Troponin 0 Hr.on 07-09-2023 Troponin 4.70 pg/mL Low 10.10-27.1 0 [facility] Comment on above: Result Comment: The 95% CI (Confidence Interval) PPV (Positive Predictive Value) for myocardial infarction in females is 38 pg/mL, in males 51 pg/mL. The results should be used in conjunction with clinical conditions of myocardial infarction.(Access High Sensitivity Troponin I Instructions For Use, Raegan Gregory, October 2017) Performed By: #### 2 419470, 55667713, 9008510, 20965430, 50943752, 67911346 ####[address] [place] [address] U Osmolalityon 07-09-2023 U Osmolality 192 mOsm/kg Normal 50-1400 [facility] Comment on above: Performed By: #### 2 123892, 1492659 ####[address] [address] U Sodiumon 07-09-2023 Sodium [Moles/Vol] 26 mmol/L Invalid Interpretation Code [facility] Comment on above: Performed By: #### 2 379429, 0081517 ####[address] [address] XR Chest Single Viewon 07-08 XR Chest Single View Normal [facility] eGFRon 07-09-2023 eGFR 88 mL/min/1.73 m2 Normal >=59 [facility] Comment on above: Order Comment: Order added by Discern Expert. Performed By: #### 2 613815, 2462770, 85127963 ####[address] [place] [address] eGFR 73 mL/min/1.73 m2 Normal >=59 [facility] Comment on above: Order Comment: Order added by Discern Expert. Performed By: #### 2 444828, 31807558, 1245614, 57369767, 03989284, 56596064 ####[facility] [address] [place] [address] CHEMISTRYOrdered By: Shreya Suazo on 07-08-2023 Natriuretic peptide B (Bld) [Mass/Vol] 90 pg/mL High 5 - 80 pg/mL [facility] CHEMISTRYOrdered By: SYSTEM SYSTEM on 07-08-2023 Troponin 4.70 pg/mL Low 10.10 - 27.10 pg/mL [facility] Comment on above: Interpretive Data: T he 95% CI (Confidence Interval) PPV (Positive Predictive Value) for myocardial infarction in females is 38 pg/mL, in males 51 pg/mL. The results should be used in conjunction with clinical conditions of myocardial infarction. (Access High Sensitivity Troponin I Instructions For Use, Raegan Nolan, October 2017) COAGULATIONOrdered By: Yolanda Suazo on 07-08-2023 aPTT Coag (PPP) [Time] 30.7 s Normal 25.1 - 36.5 second(s) [facility] Auto Coag Comment on above: Interpretive Data: Dana sharif 15 days - 4 weeks 1 - 5 months 6 - 11 months 1 - 5 years 6 - 10 years 11 - 17 years PTT Mean: 35.4 (27.6-45.6) Mean: 33.5 (24.8-40.7) Mean: 32.4 (25.1-40.7) Mean: 31.6 (24.0-39.2) Mean: 31.6 (26.9-38.7) Mean: 31.0 (24.6-38.4) Pediatric Reference ranges were obtained from a study by Dharmesh Marin et al. prepared from 1437 samples obtained at 7 different centers using the same coagulation reagent and instrumentation as [facility]. Currently there are no coagulation studies available worldwide for children to 14 days, and no normal ranges. Heparin therapeutic range (represented by Anti-Factor Xa activity of 0.2 - 0.4 U/mL) corresponds to PTT of 56.6 - 109.0 sec. INR Coag (PPP) [Relative time] 0.91 {INR} Invalid Interpretation Code [facility] Auto Coag Comment on above: Interpretive Data: I NR results are specifically intended to assess patients stabilized on long-term Anticoagulation therapy suggested INR s Less Intensive Anticoagulation 2.0 3.0 Conventional Range 3.0 4.5 PT Coag (PPP) [Time] 10.2 s Normal 9.4 - 1 2.5 second(s) [facility] Auto Coag Comment on above: Interpretive Data: 1 5 days - 4 weeks 1 - 5 months 6 -11 months 1 5 years 6 10 years 11 -17 years Mean: 11.2 (9.5 12.6) Mean: 11.0 (9.7 12.8) Mean: 11.0 (9.8 13.0) Mean: 11.3 (9.9 13.4) Mean: 11.7 (10.0 14.6) Mean: 11.8 (10.0 - 14.1) Pediatric Reference ranges were obtained from a study by Dharmesh Marin et al. prepared from 1437 samples obtained at 7 different centers using the same coagulation reagent and instrumentation as [facility]. Currently there are no coagulation studies available worldwide for children to 14 days, and no normal ranges. Consent for Treatmenton 06-11 Consent for Treatment [id number]#1.00TIFF Normal [facility] HEMATOLOGYOrdered By: SYSTEM SYSTEM on 07-08-2023 Basophils/100 WBC (Bld) 0.6 % Normal 0.0 - 2.0 % [facility]e Basophils/Leukocytes Auto (Bld) [Pure # fraction] 0.0 E9/L Normal 0.0 - 0.2 E9/L [facility] Eosinophils (Bld) [#/Vol] 0.3 E9/L Normal 0.0 - 0.5 E9/L [facility]e Eosinophils/100 WBC (Bld) 3.1 % Normal 0.0 - 8.0 % [facility]e Erythrocyte distribution width (RBC) [Ratio] 13.7 % Normal 10.9 - 14.2 % [facility] Hematocrit (Bld) [Volume fraction] 31.2 % Low 34.0 - 46.0 % [facility]e Hemoglobin (Bld) [Mass/Vol] 10.7 g/dL Low 12.0 - 16.0 gm/dL [facility] Lymphocytes (Bld) [#/Vol] 1.4 E9/L Normal 1.0 - 4.0 E9/L [facility]e Lymphocytes/100 WBC (Bld) 16.9 % Normal 14.0 - 50.0 % [facility] MCH (RBC) [Entitic mass] 30.1 pg Normal 27.0 - 34.0 pg [facility]e MCHC (RBC) [Mass/Vol] 34.4 g/dL Normal 31.4 - 36.0 gm/dL Remisol Heme MCV (RBC) [Entitic vol] 87.6 fL Normal 80.0 - 100.0 fL Remisol Heme Monocytes (Bld) [#/Vol] 0.9 E9/L Normal 0.2 - 1.0 E9/L Remisol Heme Monocytes/100 WBC (Bld) 10.8 % Normal 4.0 - 14.0 % Remisol Heme Neutrophils (Bld) [#/Vol] 5.6 E9/L Normal 2.0 - 7.5 E9/L Remisol Heme Neutrophils/100 WBC (Bld) 68.6 % Normal 36.0 - 75.0 % Remisol Heme Platelet 227.0 E9/L Normal 150.0 - 500.0 E9/L Remisol Heme Platelet mean volume (Bld) [Entitic vol] 6.4 fL Normal 6.4 - 10.8 fL Remisol Heme RBC (Bld) [#/Vol] 3.6 E12/L Low 4.3 - 5.9 E12/L Remisol Heme WBC corrected for nucl RBC Auto (Bld) [#/Vol] 8.2 E9/L Normal 4.0 - 11.0 E9/L Remisol Heme MICRO OTHER TESTSOrdered By: Shreya Suazo on 07-08-2023 Influenzae A Ag Negative (07/08/23 10:30 PM) Normal Negative [facility] Sero Influenzae B Ag Negative 1 (07/08/23 10:30 PM) Normal Negative [facility] Comment on above: Interpretive Data: T est sensitivity and specificity vary for age group, specimen type, antigen types, and prevalence of disease. Test results must be evaluated in conjunction with other clinical data available to the physician. Individuals who received nasally administered Influenza A vaccine may have positive test results up to 3 days after vaccination. Rapid COV Int NEG Ctl Pass (07/08/23 10:30 PM) Normal [facility] Sero Rapid COV Int POS Ctl Pass (07/08/23 10:30 PM) Normal [facility] Sero SARS-CoV+SARS-CoV-2 (COVID-19) Ag IA.rapid Ql (Resp) Not Detected 6 (07/08/23 10:30 PM) Normal Not Detected [facility] Comment on above: Interpretive Data: Minoo allen [employer] Veritor System for Rapid Detection of SARS-CoV-2 is a chromatographic digital immunoassay intended for the direct and qualitative detection of SARS-CoV-2 nucleocapsid antigens in nasal swabs from individuals who are suspected of COVID-19 by their healthcare provider within the first five days of the onset of symptoms. Negative results should be treated as presumptive, do not rule out SARS-CoV-2 infection and should not be used as the sole basis for treatment or patient management decisions, including infection control decisions. Negative results should be considered in the context of a patient s recent exposures, history and the presence of clinical signs and symptoms consistent with COVID-19, and confirmed with a molecular assay, if necessary, for patient management. For in vitro diagnostic use. In the [place], only for use under an Emergency Use Authorization. In the [place], this test has not been FDA cleared or approved; this test has been authorized by FDA under an EUA for use by authorized laboratories; use by laboratories certified under the CLIA, 42 U.S.C. 263a, that meet requirements to perform moderate, high, or waived complexity tests and at the Point of Care (POC), i.e., in patient care settings operating under a CLIA Certificate of Waiver, Certificate of Compliance, or Certificate of Accreditation. This test has been authorized only for the detection of proteins from SARS-CoV-2, not for any other viruses or pathogens; and, in the [facility], this test is only authorized for the duration of the declaration that circumstances exist justifying the authorization of emergency use of in vitro diagnostics for detection and/or diagnosis of the virus that causes COVID-19 under Section 564(b)(1) of the Act, 21 U.S.C. 360bbb-3(b)(1), unless the authorization is terminated or revoked sooner. JESSOVon 07-06-2023 CNOV Office Visit (NECVS8 ) -- CARLY MARCELINO ([id number]) 1940 F [place] Date Time Provider Department 07/06/23 1:05 PM DELFIN DOW NECVS8 During your visit today, we recorded the following information about you: Temperature Pulse Respiration Blood pressure 97.3 degrees 61/minute 14/minute 141/56 Weight Height 86.2 kg 1.702 m Delfin Dow, [employer].WE[employer] PROGRAMMER 07/06/2023 3:06 PM Signed [facility] Established Visit Consultation is requested by: No referring provider defined for this encounter. PCP: Hardeep Mckenzie [address] [place] [id number] CEREBROVASCULAR HISTORY Carly Marcelino is a 82 year old right-handed female. 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 Neurology was consulted and after discussion with vascular medicine the decision was made to continue patient off anticoagulation and start ASA 81. Patient was monitored with EEG, which showed no seizures but was significant for PLEDS. Therefore, patient was continued on keppra with plan for PASS clinic follow up. Patient was fitted with fitted with sequential compression devices and used Heparin for DVT prophylaxis. The patient was discharged on 05/07/2023 in stable condition. Complete and comprehensive discharge instructions were provided to the patient as well as necessary prescriptions. The patient had no further questions and was advised to call with any questions, concerns, or problems. Patient's pain was well controlled with Oral Pain Medications. Physical Therapy was started on 05/04/2023. Patient progressed satisfactorily through physical therapy until discharge. Based upon the appropriate milestones the patient met during the hospital course, Physical Therapy recommended patient be discharged to Rapid Recovery- discharged home. Patient was hemodynamically stable postoperatively. 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 Will continue monotherapy with Aspirin Request images from ED visits at [facility] Reports she has been having anxiety attacks She states she has unusual thoughts. Specifically nightmares. She wakes up thinking that she's is dying. She states she does have this during the day sometimes as well. She felt that this has been since the Keppra was started Following with Epilepsy, no recommendations to stop AEDs at this time. [address] Discussed journaling and keeping daily schedule to help manage anxiety. PAST MEDICAL HISTORY Diagnosis Date Arterial aneurysm (HCC) left eye Asthma rare use of albuterol, controled with zafirlukast, advair Bilateral shoulder injury before 1999 working in [employer] home Cataract of left eye Cataracts, bilateral HTN (hypertension) Hyperlipidemia Lung nodule 06/2015 Macular degeneration DESTINY (obstructive sleep apnea) s/p pharyngoplasty no cpap Pseudophakia of right eye PAST SURGICAL HISTORY Procedure Laterality Date ARTHRP KNE CONDYLEANDPLATU MEDIALANDLAT COMPARTMENTS 2004 bilateral kneee EXCISION CHE NEUROMA EACH x3 PAST SURGICAL HISTORY OF 1967,93 breast bx PAST SURGICAL HISTORY OF 2000 L3-5 laminectomy PAST SURGICAL HISTORY OF bilateral heal spurs PAST SURGICAL HISTORY OF Left 01/20/15 left total reverse shoulder surgery PAST SURGICAL HISTORY OF Right 09/29/15 right total reverse shoulder surgery PHARYNGOPLASTY (RECONSTRUCTION PHARYNX) 2003 d/t DESTINY REMV CATARACT EXTRACAP,INSERT LENS Right SCREENING COLONSCOPY NOT HIGH RISK 2010 TONSILLECTOMY HX 2003 TRABECULOPLASTY BY LASER SURGERY 2003 correction of arterial hemmorhage left eye FAMILY HISTORY Problem Relation Age of Onset Breast Cancer Mother with mets Cataract Mother Cancer Father prostate with bone mets Cataract Father Cancer Brother colon; survivor x 10 yrs thus far. doing well Cataract Brother No Ocular Disease No Family History nothing known of Social History Tobacco Use Smoking status: Former Packs/day: 0.50 Years: 10.00 Additional pack years: 0.00 Total pack years: 5.00 Types: Cigarettes Quit date: 1976 Years since quittin.3 Smokeless tobacco: Never Vaping Use Vaping Use: Never used Substance Use Topics Alcohol use: Yes Comment: socially wine, beer Drug use: No Comment: denies tx for drug/alcohol abuse in the past. MEDICATIONS Current Outpatient Medications Medication Sig spiron (more content not included)... Normal [facility] Discharge Instructionson Discharge Instructions [id number] Normal [facility] Discharge Instructions [id number] Normal [facility] CNOVon 06-29-2023 CNOV Office Visit (NSEVMN ) -- CARLY MARCELINO ([id number]) 1940 F Date Time Provider Department 06/29/23 10:30 AM [facility] During your visit today, we recorded the following information about you: Temperature Pulse Respiration Blood pressure 97.2 degrees 56/minute 13/minute 126/59 Weight Height 86.2 kg 1.702 m Christopher Casarez APRN.[facility] 07/17/2023 3:22 PM [facility] Established Visit Carly Marcelino [facility]#: [id number] Date of Service: 06/29/2023 Primary Care Provider: Hardeep Mckenzie DO FOLLOW UP VISIT Carly Marcelino is a 82 year old female, who presents for neurologic evaluation for right frontal cortical SAH 05/03/2023. 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 CTA/MRI did not show source of SAH but MRI was concerning for cerebral amyloid angiopathy. Neurology was consulted and after discussion with vascular medicine the decision was made to continue patient off anticoagulation and start ASA 81. Patient was monitored with EEG, which showed no seizures but was significant for PLEDS. Therefore, patient was continued on keppra with plan for PASS clinic follow up. Discharged home 05/07/2023. Patient is here for follow-up after hospital discharge and to review results of latest CTH. Interval History: - granddaughter accompanies patient. - midsternal chest pain, not sure if cardiac or back/MSK (h/o back fracture) - saw PCP yesterday, was not as bad but worsened through the day. - using a walking stick. - hurts with taking a breath. - unable to describe if sharp, dull, etc. It's just there. - wonders if should take anxiety pill. - feels better talking to provider, calming - dry cough. - went to ED 06/24 and 06/20, never been on so many drugs - nausea re/to keppra, better since cut back and taking PO intake before and after. - living with daughter, wonders if doing too much. - routine disrupted since hospitalization. - some days don't feel good. - very active prior to hospitalization. - don't talk as much, jaw gets tired. - no stroke or seizure activity. - wonders if anxiety, currently under many family stressors. - son 1 week prior to hospitalization. - daugther diagnosed with severe breast cancer. - grandson (father ) hospitalized for PTSD. - waking up early in the mornings. - drinks 1/2 water and 1/2 Gatorade. - plans to see PCP regularly every few weeks. - BP today 126/59. - aspirin 81mg daily. No bleeding or bruising issues. - nonsmoker. - no family history of brain aneurysm; eldest brother suffered two TIAs. Handedness: right-handed Past Medical History: ACTIVE PROBLEM LIST Complete Rupture of Rotator Cuff Fitting and Adjustment of Orthopedic Device ANKLE INSTABILITY DERANGEMENT ANKLE/FOOT Difficulty in Walking(719.7) LOOSE BODY ANKLE/FOOT Follow-Up Examination, Following Unspecified Surgery Rotator Cuff Tear Arthropathy of Both Shoulders Glenohumeral Arthritis Plantar Fasciitis Difficulty Walking Pain in Left Foot Heel Pain, Chronic Heel Spur Right Hand Tendonitis Retinal Macroaneurysm of Left Eye Retinal Hemorrhage of Left Eye Chorioretinal Scar of Left Eye Contusion of Right Foot Enthesopathy of Foot Tendonitis, Achilles, Left Calcaneal Spur of Left Foot Acquired Dysmorphic Toenail Sah (Subarachnoid Hemorrhage) (Hcc) Dvt (Deep Venous Thrombosis) (Hcc) Seizure (Hcc) Primary Hypertension Coronary Artery Disease Involving [place] Coronary Artery of [place] 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 Hyperlipidemia Sciatica of Right Side Uncomplicated Asthma Ivana (Iron Deficiency Anemia) Cerebral Amyloid Angiopathy (Hcc) (Hcc) History of Dvt (Deep Vein Thrombosis) Lymphedema Cerebral Amyloid Angiopathy (Code) Anticoagulation Management Encounter Nonspecific Abnormal Electroencephalogram (Eeg) Morbid Obesity (Hcc) PAST SURGICAL HISTORY Procedure Laterality Date ARTHRP KNE CONDYLEANDPLATU MEDIALANDLAT COMPARTMENTS 2004 bilateral kneee EXCISION CHE NEUROMA EACH x3 PAST SURGICAL HISTORY OF breast bx PAST SURGICAL HISTORY OF 2000 L3-5 laminectomy PAST SURGICAL HISTORY OF bilateral heal spurs PAST SURGICAL HISTORY OF Left 01/20/15 left total reverse shoulder surgery PAST SURGICAL HISTORY OF Right 09/29/15 right total reverse shoulder surgery PHARYNGOPLASTY (RECONSTRUCTION PHARYNX) 2002 d (more content not included)... Normal [facility] 06-25-2023 Anion gap [Moles/Vol] 11 mmol/L Normal 6-16 [facility] Comment on above: Performed By: #### 1 [id number] ####[facility] [address] [place] [address] Calcium [Mass/Vol] 9.7 mg/dL Normal 8.9-11.1 [facility] Comment on above: Performed By: #### 1 [id number], [id number] ####[facility] [address] [place] [address] Chloride [Moles/Vol] 96 mmol/L Low 101-111 [facility] Comment on above: Performed By: #### 1 [id number], [id number] ####[facility] [address] [place] [address] CO2 [Moles/Vol] 27 mmol/L Normal 21-31 [facility] Comment on above: Performed By: #### 1 [id number], [id number] ####[facility] [address] [place] [address] Creatinine [Mass/Vol] 0.8 mg/dL Normal 0.5-1.3 [facility] Comment on above: Performed By: #### 1 [id number], [id number] ####[facility] [address] [place] [address] Glucose [Mass/Vol] 90 mg/dL Normal 55-199 [facility] Comment on above: Performed By: #### 1 [id number], [id number] ####[facility] [address] [place] [address] Potassium [Moles/Vol] 4.3 mmol/L Normal 3.5-5.3 [facility] Comment on above: Performed By: #### 1 [id number], [id number] ####[facility] [address] [place] [address] Sodium [Moles/Vol] 130 mmol/L Low 135-145 [facility] Comment on above: Performed By: #### 1 [id number], [id number] ####[facility] [address] [place] [address] Urea nitrogen [Mass/Vol] 24 mg/dL High 5-21 [facility] Comment on above: Performed By: #### 1 [id number], [id number] ####[facility] [address] [place] [address] Urea nitrogen/Creatinine [Mass ratio] 30 No Units High 10-20 [facility] Comment on above: Performed By: #### 1 [id number], [id number] ####[facility] [address] [place] [address] CHEMISTRYOrdered By: SYSTEM SYSTEM on 06-25-2023 Anion gap [Moles/Vol] 11 mmol/L Normal 6 - 16 mEq/L Remisol Chem Calcium [Mass/Vol] 9.7 mg/dL Normal 8.9 - 11. 1 mg/dL [facility] Chem Chloride [Moles/Vol] 96 mmol/L Low 101 - 1 11 mmol/L [facility] CO2 [Moles/Vol] 27 mmol/L Normal 21 - 31 mmol/L [facility] Creatinine [Mass/Vol] 0.8 mg/dL Normal 0.5 - 1.3 mg/dL [facility] Chem eGFR 73 mL/min/1.73 m2 Normal >=59mL/min /1.73 m2 [facility] Glucose [Mass/Vol] 90 mg/dL Normal 55 - 199 mg/dL [facility] Potassium [Moles/Vol] 4.3 mmol/L Normal 3.5 - 5.3 mmol/L [facility] Sodium [Moles/Vol] 130 mmol/L Low 135 - 145 mmol/L [facility] Urea nitrogen [Mass/Vol] 24 mg/dL High 5 - 21 mg/dL [facility] Urea nitrogen/Creatinine [Mass ratio] 30 mg/mg High 10 - 20 [facility] Consent for Treatmenton 06-10 Consent for Treatment [id number] Normal [facility] Discharge Instructionson Discharge Instructions [id number] Normal [facility] ED Clinical Summaryon 2023 ED Clinical Summary Normal [facility] ED Note-Physicianon 06-25-19 ED Note-Physician Normal [facility] Comment on above: Result Comment: Elec tronically Signed By: Hank Beard DO\.br\Date and Time Signed: 06/25/23 14:14 EDT ED Patient Education Noteon 06-25-2023 ED Patient Education Note Normal [facility] ED Patient Summaryon 024 ED Patient Summary Normal [facility] Pre-Arrival Noteon Pre-Arrival Note Normal [facility] UA with Cult Rflxon 06-25-19 Bilirubin Ql (U) Negative Normal Negative [facility] Comment on above: Performed By: #### 4 [id number] ####[facility] [address] [place] [address] Clarity (U) Clear Normal Clear [facility] Comment on above: Performed By: #### 4 [id number] ####[facility] [address] [place] [address] Color (U) Colorless Abnormal Yellow [facility] Comment on above: Result Comment: Micr oscopic readings are only performed on those samples that meet specific criteria set forth by [facility]. Performed By: #### 4 [id number] ####[facility] [address] [place] [address] Glucose Ql (U) Negative Normal Negative [facility] Comment on above: Performed By: #### 4 [id number] ####[facility] [address] [place] [address] Hemoglobin Auto test strip (U) [Mass/Vol] Negative Normal Negative [facility] Comment on above: Performed By: #### 4 [id number] ####[facility] [address] [place] [address] Ketones Auto test strip Ql (U) Negative Normal Negative [facility] Comment on above: Performed By: #### 4 [id number] ####[facility] [address] [place] [address] Leukocyte esterase Auto test strip Ql (U) Negative Normal Negative [facility] Comment on above: Performed By: #### 4 [id number] ####[facility] [address] [place] [address] Nitrite Auto test strip Ql (U) Negative Normal Negative [facility] Comment on above: Performed By: #### 4 [id number] ####[facility] [address] [place] [address] pH (U) 7.5 [pH] Invalid Interpretation Code 5.0-9.0 [facility] Comment on above: Performed By: #### 4 [id number] ####[facility] [address] [place] [address] Protein Ql (U) Negative Normal Negative [facility] Comment on above: Performed By: #### 4 [id number] ####[facility] [address] [place] [id number] Specific gravity (U) [Rel density] 1.007 Invalid Interpretation Code 1.005-1.03 0 [facility] Comment on above: Performed By: #### 4 [id number] ####[facility] [address] [place] [id number] Urobilinogen (U) [Mass/Vol] Negative Normal Negative [facility] Comment on above: Performed By: #### 4 [id number] ####[facility] [address] [place], [place] [address] Type of Urine collection method Clean Catch Normal [facility] Comment on above: Performed By: #### 4 [id number] ####[facility] [address] [place] [address] URINALYSISOrdered By: SYSTEM SYSTEM on 06-25-2023 Bilirubin Ql (U) Negative Normal Negativemg /dL [facility] UA Auto SS Clarity (U) Clear (06/25/23 1:38 PM) Normal Clear [facility] UA Auto SS Color (U) Colorless 1 *ABN* (06/25/23 1:38 PM) Invalid Interpretation Code Yellow [facility] Auto SS Comment on above: Interpretive Data: M icroscopic readings are only performed on those samples that meet specific criteria set forth by [facility]. Glucose Ql (U) Negative Normal Negativemg /dL [facility]A Auto SS Hemoglobin Auto test strip (U) [Mass/Vol] Negative Normal Negativemg /dL [facility] Auto SS Ketones Auto test strip Ql (U) Negative Normal Negativemg /dL [facility]A Auto SS Leukocyte esterase Auto test strip Ql (U) Negative Normal NegativeLe u/uL [facility] UA Auto SS Nitrite Auto test strip Ql (U) Negative Normal Negativemg /dL [facility] UA Auto SS pH (U) 7.5 *NA* (06/25/23 1:38 PM) Invalid Interpretation Code 5.0 - 9.0 [facility] UA Auto SS Protein Ql (U) Negative Normal Negativemg /dL [facility] UA Auto SS Specific gravity (U) [Rel density] 1.007 *NA* (06/25/23 1:38 PM) Invalid Interpretation Code 1.005 - 1.030 [facility] UA Auto SS Urobilinogen (U) [Mass/Vol] Negative Normal Negativemg /dL [facility] UA Auto SS URINALYSISOrdered By: Hank davila on 06-25-2023 UA Spec Desc Clean Catch (06/25/23 1:38 PM) Normal [facility] UA Auto SS Work Phone: eGFRon 06-25-2023 eGFR 73 mL/min/1.73 m2 Normal >=59 [facility] Comment on above: Order Comment: Order added by Discern Expert. Performed By: #### 1 [id number], [id number] ####[facility] [address] [place] [address] ED Note-Physicianon 06-23-19 ED Note-Physician Normal [facility] Comment on above: Result Comment: Elec tronically Signed By: Debbie Urrutia PA-C\.br\Date and Time Signed: 06/23/23 01:07 EDT\.br\Electronically Co-Signed By: tSacia Dwyer DO\.br\Date and Time Co-Signed: 06/23/23 21:39 EDT ED Note-Physician Normal [facility] Comment on above: Result Comment: Elec tronically Signed By: Rocio Jara PA-C\.br\Date and Time Signed: 06/08/23 19:40 EDT\.br\Electronically Co-Signed By: James Nguyen MD\.br\Date and Time Co-Signed: 06/23/23 13:46 EDT Acetamnphn Lvlon 06-21-2023 Acetaminoph Lvl <10 Low 15-30 [facility] Comment on above: Performed By: #### 2 [id number], [id number], [id number] ####[facility] [address] [place] [address] BMPon 06-21-2023 Anion gap [Moles/Vol] 12 mmol/L Normal 6-16 [facility] Comment on above: Performed By: #### 2 [id number], [id number], 6274348, [id number], [id number] ####[facility] [address] [place] [address] Calcium [Mass/Vol] 9.7 mg/dL Normal 8.9-11.1 [facility] Comment on above: Performed By: #### 2 [id number], 04553722, 7895599, [id number], 11476335 ####[facility] [address] [place] [address] Chloride [Moles/Vol] 97 mmol/L Low 101-111 [facility] Comment on above: Performed By: #### 2 025872, [id number], 8639274, [id number], [id number] ####[facility] [address] [place] [address] CO2 [Moles/Vol] 28 mmol/L Normal 21-31 [facility] Comment on above: Performed By: #### 2 054381, 11450852, 8967362, 49100288, 23706757 ####[facility] [address] [place] [address] Creatinine [Mass/Vol] 0.8 mg/dL Normal 0.5-1.3 [facility] Comment on above: Performed By: #### 2 626853, [id number], 0578094, 86705270, 36484259 ####[facility] [address] [place] [address] Glucose [Mass/Vol] 93 mg/dL Normal 55-199 [facility] Comment on above: Performed By: #### 2 626660, [id number], 7851620, [id number], [id number] ####[facility] [address] [place] [address] Potassium [Moles/Vol] 4.5 mmol/L Normal 3.5-5.3 [facility] Comment on above: Performed By: #### 2 171455, [id number], 6193536, 04288906, 72396437 ####[facility] [address] [place] [address] Sodium [Moles/Vol] 132 mmol/L Low 135-145 [facility] Comment on above: Performed By: #### 2 522944, 58865307, 9040244, 81738739, [id number] ####[facility] [address] [place] [address] Urea nitrogen [Mass/Vol] 21 mg/dL Normal 5-21 [facility] Comment on above: Performed By: #### 2 464711, 94637842, 2841138, [id number], [id number] ####[facility] [address] [place] [address] Urea nitrogen/Creatinine [Mass ratio] 26 No Units High 10-20 [facility] Comment on above: Performed By: #### 2 420223, [id number], 2486794, 76724447, [id number] ####[facility] [address] [place] [address] BNPon 06-21-2023 Natriuretic peptide B (Bld) [Mass/Vol] 67 pg/mL Normal 5-80 [facility] Comment on above: Performed By: #### 1 [id number] ####66 [address] [address] CBC w/ Auto Diffon 4 Basophils/100 WBC (Bld) 0.6 % Normal 0.0-2.0 [facility] Comment on above: Performed By: #### 2 367848, [id number], 7638402, 05075616, [id number] ####[facility] [address] [place] [address] Basophils/Leukocytes Auto (Bld) [Pure # fraction] 0.0 E9/L Normal 0.0-0.2 [facility] Comment on above: Performed By: #### 2 637367, 27214281, 4836889, 97271168, 78860774 ####[facility] [address] [place] [address] Eosinophils (Bld) [#/Vol] 0.1 E9/L Normal 0.0-0.5 [facility] Comment on above: Performed By: #### 2 605451, 30414728, 8731597, 70121762, 55831905 ####[address] [address] Eosinophils/100 WBC (Bld) 1.2 % Normal 0.0-8.0 [facility] Comment on above: Performed By: #### 2 731424, 12627502, 8205932, 35196744, 61596326 ####[address] [address] Erythrocyte distribution width (RBC) [Ratio] 13.7 % Normal 10.9-14.2 [facility] Comment on above: Performed By: #### 2 438714, 85455760, 9477754, 19635005, 34598038 ####[address] [address] Hematocrit (Bld) [Volume fraction] 37.0 % Normal 34.0-46.0 [facility] Comment on above: Performed By: #### 2 881422, 62427604, 9262583, 37814471, 21045608 ####[address] [address] Hemoglobin (Bld) [Mass/Vol] 12.6 g/dL Normal 12.0-16.0 [facility] Comment on above: Performed By: #### 2 825391, 01475852, 8125991, 80011008, 52967727 ####[address] [address] Lymphocytes (Bld) [#/Vol] 1.1 E9/L Normal 1.0-4.0 [facility] Comment on above: Performed By: #### 2 452651, 12811616, 0658175, 43330383, 50988940 ####[address] [address] Lymphocytes/100 WBC (Bld) 17.5 % Normal 14.0-50.0 [facility] Comment on above: Performed By: #### 2 017268, 59949532, 6890842, 02597289, 55250053 ####[facility] [address] [place] [address] MCH (RBC) [Entitic mass] 30.4 pg Normal 27.0-34.0 [facility] Comment on above: Performed By: #### 2 722272, 71739546, 6575505, 26626279, 28025914 ####[address] [address] MCHC (RBC) [Mass/Vol] 34.0 g/dL Normal 31.4-36.0 [facility] Comment on above: Performed By: #### 2 848605, 26970653, 9044639, 93319795, 34755739 ####[address] [address] MCV (RBC) [Entitic vol] 89.5 fL Normal 80.0-100.0 [facility] Comment on above: Performed By: #### 2 785337, 85933719, 5221412, 82520334, 02508973 ####[address] [address] Monocytes (Bld) [#/Vol] 0.4 E9/L Normal 0.2-1.0 [facility] Comment on above: Performed By: #### 2 083353, 77288439, 5279383, 61922457, 45311595 ####[address] [address] Neutrophils (Bld) [#/Vol] 4.5 E9/L Normal 2.0-7.5 [facility] Comment on above: Performed By: #### 2 143437, 57005515, 9280738, 26211817, 11487527 ####[address] [address] Neutrophils/100 WBC (Bld) 73.7 % Normal 36.0-75.0 [facility] Comment on above: Performed By: #### 2 972009, 80366138, 9656837, 19029689, 21550543 ####[facility] [address] [place] [address] Platelet 226.0 E9/L Normal 150.0-500. 0 [facility] Comment on above: Performed By: #### 2 849507, 27248412, 6371209, 79775317, 62671052 ####[facility] [address] [place] [address] Platelet mean volume (Bld) [Entitic vol] 6.8 fL Normal 6.4-10.8 [facility] Comment on above: Performed By: #### 2 178540, 74496281, 3449802, 16525257, 77012164 ####[facility] [address] [place] [address] RBC (Bld) [#/Vol] 4.1 E12/L Low 4.3-5.9 [facility] Comment on above: Performed By: #### 2 621189, 86011759, 4456678, 48876409, 75137723 ####[facility] [address] [place] [address] WBC corrected for nucl RBC Auto (Bld) [#/Vol] 6.2 E9/L Normal 4.0-11.0 [facility] Comment on above: Performed By: #### 2 949542, 48380535, 4541558, 57426153, 20759829 ####[facility] [address] [place] [address] CHEMISTRYOrdered By: SYSTEM SYSTEM on 06-21-2023 Acetaminoph Lvl microgram/mL Low 15 - 30 mcg/mL [facility] Chem Ethanol Lvl mg/dL Normal <=11mg/dL [facility] Chem Salicylate Lvl mg/dL Low 6 - 29 mg/dL [facility] Chem TSH Qn 2.24 m[IU]/L Normal 0.34 - 5.60 mcIU/mL [facility] Chem Anion gap [Moles/Vol] 12 mmol/L Normal 6 - 16 mEq/L [facility] Calcium [Mass/Vol] 9.7 mg/dL Normal 8.9 - 11. 1 mg/dL [facility] Chloride [Moles/Vol] 97 mmol/L Low 101 - 1 11 mmol/L [facility] Chem CO2 [Moles/Vol] 28 mmol/L Normal 21 - 31 mmol/L [facility] Creatinine [Mass/Vol] 0.8 mg/dL Normal 0.5 - 1.3 mg/dL [facility] Chem eGFR 73 mL/min/1.73 m2 Normal >=59mL/min /1.73 m2 [facility] Glucose [Mass/Vol] 93 mg/dL Normal 55 - 199 mg/dL [facility] Potassium [Moles/Vol] 4.5 mmol/L Normal 3.5 - 5.3 mmol/L [facility] Sodium [Moles/Vol] 132 mmol/L Low 135 - 145 mmol/L [facility] Troponin 5.70 pg/mL Low 10.10 - 27.10 pg/mL [facility] Comment on above: Interpretive Data: T he 95% CI (Confidence Interval) PPV (Positive Predictive Value) for myocardial infarction in females is 38 pg/mL, in males 51 pg/mL. The results should be used in conjunction with clinical conditions of myocardial infarction. (Access High Sensitivity Troponin I Instructions For Use, Raegan Nolan, October 2017) Urea nitrogen [Mass/Vol] 21 mg/dL Normal 5 - 21 mg/dL [facility] Urea nitrogen/Creatinine [Mass ratio] 26 mg/mg High 10 - 20 [facility] CHEMISTRYOrdered By: Luis Calixto on 06-21-2023 Natriuretic peptide B (Bld) [Mass/Vol] 67 pg/mL Normal 5 - 80 pg/mL [facility] HemeBucksportSS COAGULATIONOrdered By: Neida Begum on 06-21-2023 aPTT Coag (PPP) [Time] 33.5 s Normal 25.1 - 36.5 second(s) [facility] Auto [facility]ag Comment on above: Interpretive Data: P arameter 15 days - 4 weeks 1 - 5 months 6 - 11 months 1 - 5 years 6 - 10 years 11 - 17 years PTT Mean: 35.4 (27.6-45.6) Mean: 33.5 (24.8-40.7) Mean: 32.4 (25.1-40.7) Mean: 31.6 (24.0-39.2) Mean: 31.6 (26.9-38.7) Mean: 31.0 (24.6-38.4) Pediatric Reference ranges were obtained from a study by dominik Haas alChinmay prepared from 1437 samples obtained at 7 different centers using the same coagulation reagent and instrumentation as [facility]. Currently there are no coagulation studies available worldwide for children to 14 days, and no normal ranges. Heparin therapeutic range (represented by Anti-Factor Xa activity of 0.2 - 0.4 U/mL) corresponds to PTT of 56.6 - 109.0 sec. INR Coag (PPP) [Relative time] 0.92 {INR} Invalid Interpretation Code [facility] Auto Coag Comment on above: Interpretive Data: I NR results are specifically intended to assess patients stabilized on long-term Anticoagulation therapy suggested INR s Less Intensive Anticoagulation 2.0 3.0 Conventional Range 3.0 4.5 PT Coag (PPP) [Time] 10.3 s Normal 9.4 - 1 2.5 second(s) [facility] Auto Coag Comment on above: Interpretive Data: 1 5 days - 4 weeks 1 - 5 months 6 -11 months 1 5 years 6 10 years 11 -17 years Mean: 11.2 (9.5 12.6) Mean: 11.0 (9.7 12.8) Mean: 11.0 (9.8 13.0) Mean: 11.3 (9.9 13.4) Mean: 11.7 (10.0 14.6) Mean: 11.8 (10.0 - 14.1) Pediatric Reference ranges were obtained from a study by dominik Haas alChinmay prepared from 1437 samples obtained at 7 different centers using the same coagulation reagent and instrumentation as [facility]. Currently there are no coagulation studies available worldwide for children to 14 days, and no normal ranges. Consent for Treatmenton 06-10 Consent for Treatment [id number] Normal [facility] Discharge Instructionson Discharge Instructions [id number] Normal [facility] ED Clinical Summaryon 2023 ED Clinical Summary Normal Tien murphy [facility] ED Note-Nursingon 06-21-2023 ED Note-Nursing Patient ambulatory t o restroom with walker, denies dizziness. Patient states I feel like i have a belt around my stomach, and felt short of breath, upon wakening this morning. Patient's respirations equal and unlabored at this time. Normal [facility] ED Note-Nursing EKG was late due to no rooms being available including triage and alcove. obtained as quickly as possible. Normal [facility] ED Patient Education Noteon 06-21-2023 ED Patient Education Note Normal [facility] ED Patient Summaryon 024 ED Patient Summary Normal [facility] Ethanolon 06-21-2023 Ethanol Lvl <10 Normal <=11 [facility] Comment on above: Performed By: #### 2 [id number] ####[facility] [address] [place] [address] HEMATOLOGYOrdered By: SYSTEM SYSTEM on 06-21-2023 Basophils/100 WBC (Bld) 0.6 % Normal 0.0 - 2.0 % [facility] Heme Basophils/Leukocytes Auto (Bld) [Pure # fraction] 0.0 E9/L Normal 0.0 - 0.2 E9/L [facility]e Eosinophils (Bld) [#/Vol] 0.1 E9/L Normal 0.0 - 0.5 E9/L [facility] Heme Eosinophils/100 WBC (Bld) 1.2 % Normal 0.0 - 8.0 % [facility]e Erythrocyte distribution width (RBC) [Ratio] 13.7 % Normal 10.9 - 14.2 % [facility] Hematocrit (Bld) [Volume fraction] 37.0 % Normal 34.0 - 46.0 % [facility]e Hemoglobin (Bld) [Mass/Vol] 12.6 g/dL Normal 12.0 - 16.0 gm/dL [facility]e Lymphocytes (Bld) [#/Vol] 1.1 E9/L Normal 1.0 - 4.0 E9/L [facility]e Lymphocytes/100 WBC (Bld) 17.5 % Normal 14.0 - 50.0 % [facility] Heme MCH (RBC) [Entitic mass] 30.4 pg Normal 27.0 - 34.0 pg [facility] Heme MCHC (RBC) [Mass/Vol] 34.0 g/dL Normal 31.4 - 36.0 gm/dL [facility] Heme MCV (RBC) [Entitic vol] 89.5 fL Normal 80.0 - 100.0 fL [facility]e Monocytes (Bld) [#/Vol] 0.4 E9/L Normal 0.2 - 1.0 E9/L [facility]e Monocytes/100 WBC (Bld) 7.0 % Normal 4.0 - 14.0 % [facility]e Neutrophils (Bld) [#/Vol] 4.5 E9/L Normal 2.0 - 7.5 E9/L [facility]e Neutrophils/100 WBC (Bld) 73.7 % Normal 36.0 - 75.0 % [facility] Platelet 226.0 E9/L Normal 150.0 - 500.0 E9/L [facility]e Platelet mean volume (Bld) [Entitic vol] 6.8 fL Normal 6.4 - 10.8 fL [facility] Heme RBC (Bld) [#/Vol] 4.1 E12/L Low 4.3 - 5.9 E12/L [facility]e WBC corrected for nucl RBC Auto (Bld) [#/Vol] 6.2 E9/L Normal 4.0 - 11.0 E9/L [facility]e Influenza A&B Agon 4 Influenzae A Ag Negative Normal Negative [facility] Comment on above: Performed By: #### 2 [id number], [id number] ####Enrrique [facility] [address] [place] [address] Influenzae B Ag Negative Normal Negative [facility] Comment on above: Result Comment: Test sensitivity and specificity vary for age group, specimen type, antigen types, and prevalence of disease. Test results must be evaluated in conjunction with other clinical data available to the physician. Individuals who received nasally administered Influenza A vaccine may have positive test results up to 3 days after vaccination. Performed By: #### 2 [id number], [id number] ####[facility] [address] [place] [address] MICRO OTHER TESTSOrdered By: Jeanne Ordoñez on 06-21-2023 Influenzae A Ag Negative (06/21/23 2:35 PM) Normal Negative [facility] Influenzae B Ag Negative 2 (06/21/23 2:35 PM) Normal Negative [facility] Comment on above: Interpretive Data: T est sensitivity and specificity vary for age group, specimen type, antigen types, and prevalence of disease. Test results must be evaluated in conjunction with other clinical data available to the physician. Individuals who received nasally administered Influenza A vaccine may have positive test results up to 3 days after vaccination. Rapid COV Int NEG Ctl Pass (06/21/23 2:35 PM) Normal [facility] Rapid COV Int POS Ctl Pass (06/21/23 2:35 PM) Normal [facility] SARS-CoV+SARS-CoV-2 (COVID-19) Ag IA.rapid Ql (Resp) Not Detected 7 (06/21/23 2:35 PM) Normal Not Detected [facility] Comment on above: Interpretive Data: T he [employer] Veritor System for Rapid Detection of SARS-CoV-2 is a chromatographic digital immunoassay intended for the direct and qualitative detection of SARS-CoV-2 nucleocapsid antigens in nasal swabs from individuals who are suspected of COVID-19 by their healthcare provider within the first five days of the onset of symptoms. Negative results should be treated as presumptive, do not rule out SARS-CoV-2 infection and should not be used as the sole basis for treatment or patient management decisions, including infection control decisions. Negative results should be considered in the context of a patient s recent exposures, history and the presence of clinical signs and symptoms consistent with COVID-19, and confirmed with a molecular assay, if necessary, for patient management. For in vitro diagnostic use. In the [place], only for use under an Emergency Use Authorization. In the [place], this test has not been FDA cleared or approved; this test has been authorized by FDA under an EUA for use by authorized laboratories; use by laboratories certified under the CLIA, 42 U.S.C. 263a, that meet requirements to perform moderate, high, or waived complexity tests and at the Point of Care (POC), i.e., in patient care settings operating under a CLIA Certificate of Waiver, Certificate of Compliance, or Certificate of Accreditation. This test has been authorized only for the detection of proteins from SARS-CoV-2, not for any other viruses or pathogens; and, in the [place], this test is only authorized for the duration of the declaration that circumstances exist justifying the authorization of emergency use of in vitro diagnostics for detection and/or diagnosis of the virus that causes COVID-19 under Section 564(b)(1) of the Act, 21 U.S.C. 360bbb-3(b)(1), unless the authorization is terminated or revoked sooner. Monitor Recordon 06-21-2023 Monitor Record [id number] Normal [facility] Monitor Record [id number] Normal [facility] PT & PTTon 06-21-2023 aPTT Coag (PPP) [Time] 33.5 second(s) Normal 25.1-36.5 [facility] Comment on above: Result Comment: Para meter 15 days - 4 weeks 1 - 5 months 6 - 11 months 1 - 5 years 6 - 10 years 11 - 17 years PTT Mean: 35.4 (27.6-45.6) Mean: 33.5 (24.8-40.7) Mean: 32.4 (25.1-40.7) Mean: 31.6 (24.0-39.2) Mean: 31.6 (26.9-38.7) Mean: 31.0 (24.6-38.4) Pediatric Reference ranges were obtained from a study by Dharmesh Marin et al. prepared from 1437 samples obtained at 7 different centers using the same coagulation reagent and instrumentation as [facility]. Currently there are no coagulation studies available worldwide for children to 14 days, and no normal ranges. Heparin therapeutic range (represented by Anti-Factor Xa activity of 0.2 - 0.4 U/mL) corresponds to PTT of 56.6 - 109.0 sec. Performed By: #### 2 [id number], 57766543, 9249098, 84818478, 27274128 ####[facility] [address] [place] [address] INR Coag (PPP) [Relative time] 0.92 {INR} Invalid Interpretation Code [facility] Comment on above: Result Comment: INR results are specifically intended to assess patients stabilized on long-term Anticoagulation therapy suggested INR?s ?Less Intensive Anticoagulation? 2.0 ? 3.0Conventional Range 3.0 ? 4.5 Performed By: #### 2 245853, 48847974, 5151146, 49756690, 69769568 ####[facility] [address] [place] [address] PT Coag (PPP) [Time] 10.3 second(s) Normal 9.4-12.5 [facility] Comment on above: Result Comment: 15 d ays - 4 weeks 1 - 5 months 6 -11 months 1 ? 5 years 6 ? 10 years 11 -17 years Mean: 11.2 (9.5 ? 12.6) Mean: 11.0 (9.7 ? 12.8) Mean: 11.0 (9.8 ? 13.0) Mean: 11.3 (9.9 ? 13.4) Mean: 11.7 (10.0 ? 14.6) Mean: 11.8 (10.0 - 14.1) Pediatric Reference ranges were obtained from a study by Dharmesh Marin et al. prepared from 1437 samples obtained at 7 different centers using the same coagulation reagent and instrumentation as [facility]. Currently there are no coagulation studies available worldwide for children to 14 days, and no normal ranges. Performed By: #### 2 934018, 83111149, 9506792, 48755135, 05080979 ####[facility] [address] [place] [address] Rapid COVID Antigen ([facility])on 06-21-2023 Rapid COV Int NEG Ctl Pass Normal [facility] Comment on above: Performed By: #### 2 [id number], [id number] ####[facility] [address] [place] [address] Rapid COV Int POS Ctl Pass Normal Fis [facility] Comment on above: Performed By: #### 2 [id number], [id number] ####[facility] [address] [place] [address] SARS-CoV+SARS-CoV-2 (COVID-19) Ag IA.rapid Ql (Resp) Not detected Normal Not Detected [facility] Comment on above: Result Comment: The [employer] Far[employer]itor? System for Rapid Detection of SARS-CoV-2 is a chromatographic digital immunoassay intended for the direct and qualitative detection of SARS-CoV-2 nucleocapsid antigens in nasal swabs from individuals who are suspected of COVID-19 by their healthcare provider within the first five days of the onset of symptoms. Negative results should be treated as presumptive, do not rule out SARS-CoV-2 infection and should not be used as the sole basis for treatment or patient management decisions, including infection control decisions. Negative results should be considered in the context of a patient?s recent exposures, history and the presence of clinical signs and symptoms consistent with COVID-19, and confirmed with a molecular assay, if necessary, for patient management. For in vitro diagnostic use. In the [place], only for use under an Emergency Use Authorization. In the [place], this test has not been FDA cleared or approved; this test has been authorized by FDA under an EUA for use by authorized laboratories; use by laboratories certified under the CLIA, 42 U.S.C. ?263a, that meet requirements to perform moderate, high, or waived complexity tests and at the Point of Care (POC), i.e., in patient care settings operating under a CLIA Certificate of Waiver, Certificate of Compliance, or Certificate of Accreditation.This test has been authorized only for the detection of proteins from SARS-CoV-2, not for any other viruses or pathogens; and, in the [place], this test is only authorized for the duration of the declaration that circumstances exist justifying the authorization of emergency use of in vitro diagnostics for detection and/or diagnosis of the virus that causes COVID-19 under Section 564(b)(1) of the Act, 21 U.S.C. ? 360bbb-3(b)(1), unless the authorization is terminated or revoked sooner. Performed By: #### 2 [id number], [id number] ####[facility] [address] [place] [address] Salicylateon 04-11-2024 Salicylate Lvl <4 Low 6-29 [facility] Comment on above: Performed By: #### 2 206197, 6978005, [id number] ####[facility] [address] [place] [address] TSHon 06-21-2023 TSH Qn 2.24 m[IU]/L Normal 0.34-5.60 [facility] Comment on above: Performed By: #### 2 226590, 0712319, 6572234 ####[facility] [address] [place] [address] Troponin 0 Hr.on 06-21-2023 Troponin 5.70 pg/mL Low 10.10-27.1 0 [facility] Comment on above: Result Comment: The 95% CI (Confidence Interval) PPV (Positive Predictive Value) for myocardial infarction in females is 38 pg/mL, in males 51 pg/mL. The results should be used in conjunction with clinical conditions of myocardial infarction.(Access High Sensitivity Troponin I Instructions For Use, Raegan VSporto, October 2017) Performed By: #### 2 869587, 10005490, 1656764, [id number], [id number] ####[facility] [address] [place] [address] UA with Cult Rflxon 06-21-19 24 Bilirubin Ql (U) Negative Normal Negative [facility] Comment on above: Performed By: #### 4 [id number] ####[facility] [address] [place] [address] Clarity (U) Clear Normal Clear [facility] Comment on above: Performed By: #### 4 [id number] ####[facility] [address] [place] [address] Color (U) Light-Yellow Normal Yellow [facility] Comment on above: Result Comment: Micr oscopic readings are only performed on those samples that meet specific criteria set forth by [facility]. Performed By: #### 4 [id number] ####[facility] [address] [place] [address] Glucose Ql (U) Negative Normal Negative [facility] Comment on above: Performed By: #### 4 [id number] ####[facility] [address] [place] [address] Hemoglobin Auto test strip (U) [Mass/Vol] Negative Normal Negative [facility] Comment on above: Performed By: #### 4 [id number] ####[facility] [address] [place] [address] Ketones Auto test strip Ql (U) Negative Normal Negative [facility] Comment on above: Performed By: #### 4 [id number] ####[facility] [address] [place] [address] Leukocyte esterase Auto test strip Ql (U) Negative Normal Negative [facility] Comment on above: Performed By: #### 4 [id number] ####[facility] [address] [place] [address] Nitrite Auto test strip Ql (U) Negative Normal Negative [facility] Comment on above: Performed By: #### 4 [id number] ####[facility] [address] [place] [address] pH (U) 7.5 [pH] Invalid Interpretation Code 5.0-9.0 [facility] Comment on above: Performed By: #### 4 [id number] ####[facility] [address] [place] [address] Protein Ql (U) Negative Normal Negative [facility] Comment on above: Performed By: #### 4 [id number] ####[place] [address] [address] Specific gravity (U) [Rel density] 1.010 Invalid Interpretation Code 1.005-1.03 0 [facility] Comment on above: Performed By: #### 4 [id number] ####[facility] [address] [place] [address] Urobilinogen (U) [Mass/Vol] Negative Normal Negative [facility] Comment on above: Performed By: #### 4 [id number] ####[facility] [address] [place] [address] Type of Urine collection method Clean Catch Normal [facility] Comment on above: Performed By: #### 4 [id number] ####[facility] [address] [place] [address] URINALYSISOrdered By: SYSTEM SYSTEM on 06-21-2023 Bilirubin Ql (U) Negative Normal Negativemg /dL FT UA Auto SS Clarity (U) Clear (06/21/23 2:35 PM) Normal Clear FT UA Auto SS Color (U) Light-Yellow 1 (06/21/23 2:35 PM) Normal Yellow [facility] UA Auto SS Comment on above: Interpretive Data: M icroscopic readings are only performed on those samples that meet specific criteria set forth by [facility]. Glucose Ql (U) Negative Normal Negativemg /dL FT UA Auto SS Hemoglobin Auto test strip (U) [Mass/Vol] Negative Normal Negativemg /dL [facility] UA Auto SS Ketones Auto test strip Ql (U) Negative Normal Negativemg /dL FT UA Auto SS Leukocyte esterase Auto test strip Ql (U) Negative Normal NegativeLe u/uL [facility] UA Auto SS Nitrite Auto test strip Ql (U) Negative Normal Negativemg /dL FT UA Auto SS pH (U) 7.5 *NA* (06/21/23 2:35 PM) Invalid Interpretation Code 5.0 - 9.0 FT UA Auto SS Protein Ql (U) Negative Normal Negativemg /dL FT UA Auto SS Specific gravity (U) [Rel density] 1.010 *NA* (06/21/23 2:35 PM) Invalid Interpretation Code 1.005 - 1.030 FT UA Auto SS Urobilinogen (U) [Mass/Vol] Negative Normal Negativemg /dL FT UA Auto SS URINALYSISOrdered By: Christiane Urrutia on 06-21-2023 UA Spec Desc Clean Catch (06/21/23 2:35 PM) Normal [facility] UA Auto SS Work Phone: XR Chest Single Viewon 06-20 XR Chest Single View Normal Fish er [facility] eGFRon 06-21-2023 eGFR 73 mL/min/1.73 m2 Normal >=59 [facility] Comment on above: Order Comment: Order added by Discern Expert. Performed By: #### 2 [id number], [id number], 4380498, [id number], [id number] ####[facility] [address] [place] [address] Keppra Lvlon 06-20-2023 levETIRAcetam [Mass/Vol] 24.4 microgram/mL Invalid Interpretation Code 10.0-40.0 [facility] Comment on above: Result Comment: Perf ormed at: [facility] [address] [id number] MD Ernie Ayala Performed By: #### 1 [id number] ####[facility] [address] [place] [address] BMPon 06-18-2023 Anion gap [Moles/Vol] 9 mmol/L Normal 6-16 [facility] Comment on above: Performed By: #### 2 205070, [id number], [id number], [id number], 38032680, 6405171 ####[facility] [address] [place] [address] Calcium [Mass/Vol] 9.3 mg/dL Normal 8.9-11.1 [facility] Comment on above: Performed By: #### 2 367011, 73288234, 6853405, 45680793, 65092328, 4158997 ####[facility] [address] [place] [address] Chloride [Moles/Vol] 97 mmol/L Low 101-111 [facility] Comment on above: Performed By: #### 2 633753, 22590684, 8880436, 94148827, 35397330, 2739524 ####[facility] [address] [place] [address] CO2 [Moles/Vol] 30 mmol/L Normal 21-31 [facility] Comment on above: Performed By: #### 2 974954, 06832008, 8971115, 76730985, 69029061, 9384257 ####[facility] [address] [place] [address] Creatinine [Mass/Vol] 0.8 mg/dL Normal 0.5-1.3 [facility] Comment on above: Performed By: #### 2 036859, 56988632, 9707864, 62584380, 98714405, 9976172 ####[facility] [address] [place] [address] Glucose [Mass/Vol] 80 mg/dL Normal 55-199 [facility] Comment on above: Performed By: #### 2 261648, 52390179, 9765250, 40376465, 91368845, 6348386 ####[facility] [address] [place] [address] Potassium [Moles/Vol] 3.8 mmol/L Normal 3.5-5.3 [facility] Comment on above: Performed By: #### 2 130478, 36445511, 8610121, 20852572, 94500713, 3647414 ####[facility] [address] [place] [address] Sodium [Moles/Vol] 132 mmol/L Low 135-145 [facility] Comment on above: Performed By: #### 2 807383, 33781241, 1132736, 22742726, 87209749, 6762274 ####[facility] [address] [place] [address] Urea nitrogen [Mass/Vol] 17 mg/dL Normal 5-21 [facility] Comment on above: Performed By: #### 2 450202, 59796354, 1448690, 19581061, 70834397, 1953459 ####[facility] [address] [place] [address] Urea nitrogen/Creatinine [Mass ratio] 21 No Units High 10-20 [facility] Comment on above: Performed By: #### 2 652799, 21455911, 9112866, 33498240, 73944323, 3762454 ####[address] [place] [address] CBC w/ Auto Diffon 4 Basophils/100 WBC (Bld) 0.6 % Normal 0.0-2.0 [facility] Comment on above: Performed By: #### 2 969108, 08221724, 8671983, 48985618, 18116940, 8854358 ####[address] [address] Basophils/Leukocytes Auto (Bld) [Pure # fraction] 0.0 E9/L Normal 0.0-0.2 [facility] Comment on above: Performed By: #### 2 159826, 67232244, 7369190, 58252615, 75312251, 1608958 ####[address] [address] Eosinophils (Bld) [#/Vol] 0.1 E9/L Normal 0.0-0.5 [facility] Comment on above: Performed By: #### 2 771554, 59937746, 8810880, 29845570, 28223366, 4261113 ####[address] [address] Eosinophils/100 WBC (Bld) 2.3 % Normal 0.0-8.0 [facility] Comment on above: Performed By: #### 2 989295, 62613280, 3446613, 36884056, 74075471, 5606857 ####[address] [address] Erythrocyte distribution width (RBC) [Ratio] 13.9 % Normal 10.9-14.2 [facility] Comment on above: Performed By: #### 2 277920, 39692112, 2806759, 24811541, 26511028, 9968661 ####[address] [address] Hematocrit (Bld) [Volume fraction] 34.8 % Normal 34.0-46.0 [facility] Comment on above: Performed By: #### 2 530859, 94946383, 1674578, 67317540, 34073503, 8974870 ####[facility] [address] [place] [address] Hemoglobin (Bld) [Mass/Vol] 11.9 g/dL Low 12.0-16.0 [facility] Comment on above: Performed By: #### 2 244168, 69858913, 4973645, 35197241, 47431223, 8115102 ####[address] [place] [address] Lymphocytes (Bld) [#/Vol] 1.2 E9/L Normal 1.0-4.0 [facility] Comment on above: Performed By: #### 2 304148, 22315595, 8197464, 85019489, 61605906, 9573082 ####[address] [address] Lymphocytes/100 WBC (Bld) 20.6 % Normal 14.0-50.0 [facility] Comment on above: Performed By: #### 2 723543, 90056772, 8908325, 57674052, 80249955, 5508818 ####[address] [address] MCH (RBC) [Entitic mass] 30.4 pg Normal 27.0-34.0 [facility] Comment on above: Performed By: #### 2 399204, 13494195, 3784027, 95210382, 09248631, 2750494 ####[address] [place] [address] MCHC (RBC) [Mass/Vol] 34.1 g/dL Normal 31.4-36.0 [facility] Comment on above: Performed By: #### 2 399471, 56317617, 9147743, 78965717, 83758571, 7842190 ####[address] [place] [address] MCV (RBC) [Entitic vol] 89.0 fL Normal 80.0-100.0 [facility] Comment on above: Performed By: #### 2 523800, 85645443, 0421179, 27034004, 27800878, 0765993 ####[address] [address] Monocytes (Bld) [#/Vol] 0.6 E9/L Normal 0.2-1.0 [facility] Comment on above: Performed By: #### 2 317597, 49378688, 4810054, 74867087, 56246051, 6963779 ####[address] [address] Neutrophils (Bld) [#/Vol] 4.0 E9/L Normal 2.0-7.5 [facility] Comment on above: Performed By: #### 2 185801, 50544965, 4112667, 11547717, 06257490, 3124417 ####[address] [address] Neutrophils/100 WBC (Bld) 67.3 % Normal 36.0-75.0 [facility] Comment on above: Performed By: #### 2 094776, 46819867, 7267844, 30825468, 73131839, 5436503 ####[address] [address] Platelet 204.0 E9/L Normal 150.0-500. 0 [facility] Comment on above: Performed By: #### 2 805530, 19284662, 7047385, 84896836, 30809212, 7408140 ####[address] [address] Platelet mean volume (Bld) [Entitic vol] 6.9 fL Normal 6.4-10.8 [facility] Comment on above: Performed By: #### 2 876882, 33840100, 2099108, 57227281, 68181828, 6181108 ####[facility] [address] [place] [address] RBC (Bld) [#/Vol] 3.9 E12/L Low 4.3-5.9 [facility] Comment on above: Performed By: #### 2 216184, 87124877, 0431528, 29624337, 08378845, 6544869 ####[facility] [address] [place] [address] WBC corrected for nucl RBC Auto (Bld) [#/Vol] 6.0 E9/L Normal 4.0-11.0 [facility] Comment on above: Performed By: #### 2 022352, 37814282, 4643487, 73598047, 17875065, 5457783 ####[facility] [address] [place] [address] CHEMISTRYOrdered By: SYSTEM SYSTEM on 06-18-2023 Anion gap [Moles/Vol] 9 mmol/L Normal 6 - 16 mEq/L [facility] Calcium [Mass/Vol] 9.3 mg/dL Normal 8.9 - 11. 1 mg/dL [facility] Chloride [Moles/Vol] 97 mmol/L Low 101 - 1 11 mmol/L [facility] CO2 [Moles/Vol] 30 mmol/L Normal 21 - 31 mmol/L [facility] Creatinine [Mass/Vol] 0.8 mg/dL Normal 0.5 - 1.3 mg/dL [facility] eGFR 73 mL/min/1.73 m2 Normal >=59mL/min /1.73 m2 [facility] Glucose [Mass/Vol] 80 mg/dL Normal 55 - 199 mg/dL [facility] Magnesium [Mass/Vol] 1.9 mg/dL Normal 1.3 - 2 .4 mg/dL [facility] Potassium [Moles/Vol] 3.8 mmol/L Normal 3.5 - 5.3 mmol/L [facility] Sodium [Moles/Vol] 132 mmol/L Low 135 - 145 mmol/L [facility] Troponin 4.70 pg/mL Low 10.10 - 27.10 pg/mL [facility] Comment on above: Interpretive Data: T tiffany 95% CI (Confidence Interval) PPV (Positive Predictive Value) for myocardial infarction in females is 38 pg/mL, in males 51 pg/mL. The results should be used in conjunction with clinical conditions of myocardial infarction. (Access High Sensitivity Troponin I Instructions For Use, Raegan VSporto, October 2017) Urea nitrogen [Mass/Vol] 17 mg/dL Normal 5 - 21 mg/dL [facility] Urea nitrogen/Creatinine [Mass ratio] 21 mg/mg High 10 - 20 [facility] CNPNon 06-18-2023 CNPN Telephone (NE50MN) -- CARLY MARCELINO ([id number]) 1940 F [place] Date Time Provider Department 06/18/23 NOÉ LILLY NE50MN During your visit today, we recorded the following information about you: Heydi Mirza 06/18/2023 2:59 PM Signed Medication Concern Person Calling Carly Marcelino (home) Name of medication seizure meds Concern with medication blood pressure goes high after taking meds Patient of Kayla Parra 06/19/2023 3:30 PM Signed 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 Patient cannot continue Keppra. Please call her [phone] (home). See 06/18/23 encounter. Jalyn Unger 06/20/2023 8:59 AM Signed nurse Cheri w/ Dr. Mckenzie office, PCP says pt's Mouth, legs hurt, overall feels lousy; has high blood pressure; please call back [phone] opt 4. Pedro Alcala, CARLOS 06/20/2023 11:32 AM Signed Last Visit: 06/15/23 PLAN: - Continue Keppra 500 mg BID - Ok to switch to XR formulation 500 mg QHS if continues to have GI side effects. - If her anxiety attacks continue to occur, would try to increase Keppra to assess response - Would repeat an EEG in the future if the patient is interested in weaning off Keppra - Follow-up in 3 months - Seizure precautions reiterated, patient is not driving at the moment ===== Called patient and left voicemail message. Callback number provided. Called Dr. Christiansen's office and spoke with nurse. Patient reported to them that she experiences side effects after taking her dose of keppra. She stated that it is hard for her to talk , she is fatigued and the muscles in her legs don't work. She wants to D/C medication. Routing for review along with separate encounter from Neurology. CARLOS Lin Carlos, RN 06/20/2023 4:44 PM Signed Patient returned nurse's call. Reports that the reported side effects occur shortly after taking the medication. Sometimes they go away and sometimes they don't. She denies any symptoms at this time. Patient states that she can tell when her BP is high and associates some of her symptoms with HTN. Patient also reports occasional anxiety type symptoms, stating that she sometimes has thoughts that she can't breathe or she is choking when she actually is not. Patient has not started keppra xr yet because she was under the impression that she had to wait one week before starting it. Nurse advised patient to consider starting Keppra XR to see if she tolerates it better. Also advised that she routinely monitor her BP with a monitor at home. Call was cut short because patient had trouble hearing nurse due to background noise. Nurse proposed following up with patient tomorrow and patient agreed. CARLOS iLn Kelli, APRN.WEB PROGRAMMER 06/21/2023 8:49 AM Signed I would not expect Keppra to be culprit of those symptoms, agree to try XR formulary. Has she had any other recent medication changes / health changes that could be contributing? Per MARTÍNEZ, she did mention having anxiety attacks that she describes as bilateral leg tingling, heat sensation and elevated blood pressure (4 total since discharge). Unclear etiology of these, could be anxiety related however cannot entirely rule out seizures/auras. Could also be beneficial to repeat EEG to further assess. Keisha Eller APRN.Keisha Arellano APRN.CNP 06/21/2023 3:[address] Lilly spoke with patient Keisha Eller APRN.CNP Allergies As of Date: 06/18/2023 Noted Allergy Reaction HYDANTOINS 05/01/2003 10 - Anaphylaxis Comments: throat swells ,hives PHENYTOIN 11/06/2012 10 - Anaphylaxis ADHESIVE TAPE (ROSINS) 09/11/2011 2 - Rash CARBAMAZEPINE 05/01/2003 9 - Itching Comments: Tegretal caused itching DIVALPROEX SODIUM 12/14/2018 5 - Intolerance Comments: Fine motor tremors DULERA (MOMETASONE-FORMOTEROL) 09/15/2014 5 - Intolerance Comments: Falls VALPROIC ACID ANALOGUES 05/01/2003 Comments: tremors AMLODIPINE 11/06/2012 16 - Unknown Comments: intolterance LABETALOL 11/06/2012 16 - Unknown Comments: Intolerance NIFEDIPINE 11/06/2012 16 - Unknown Comments: intolerance VALPROIC ACID 11/06/2012 5 - Intolerance Date Reviewed: 06/15/2023 Reviewed by: Frank García OCCA - Fully Assessed Reason for Visit: medication concern [Other] Cmt: seizure meds Primary Visit Diagnosis:Nonspecific abnormal electroencephalogram (EEG) [R94.01] Order(s):EPIL EEG LONG [[id number]] Order #: [id number]: [id number] FUTURE Prescriptions as of 06/21/2023 - levETIRAcetam XR (KEPPRA XR) 500 mg 24 hr tablet Take 1 tablet by mouth daily at bedtime. - albuterol HFA (PROVENTIL HFA, VENTOLIN HFA) 90 mcg/actuation inhaler Inhale 2 Puffs as instructed every 4 hours as needed. - ALPRAZolam (XANAX) 0.25 mg tablet Take 1 tablet by mouth every 12 hours. - (more content not included)... [facility] CARLY MARCELINO ([id number]) 1940 F [place] Date Time Provider Department 06/18/23 NEUROLOGY PROVIDER NECVS8 During your visit today, we recorded the following information about you: Erendira Ahmadi 06/18/2023 11:39 AM Signed CV PHONE Name of caller : Carly Relationship to patient : Self If not self Will need patient permission to release results or disclose health information with called documented in fyi. Patient identified by Name and Date of . ( Carly Marcelino, 1940). Yes Number to return call [phone] Reason for Call: Symptoms Call: Symptoms: patient states her blood pressure is high, 220/190 this was yesterday, patient states, and patient states she doesn't take her medication everyday, she states her eyes felt funny, but she couldn't see good at [employer]. Patient states the keppra makes her blood pressure spike, patient states her PCP is not in and the WEB PROGRAMMER that is covering she can't get in touch with her. Patient states she haven't felt good after she came home from the hospital, and even when she walks her blood pressure goes up. Patient states she needs management of her blood pressure pills. Duration: 24-48 hours Progression: worse Pain level: 0 on a scale of 0-10. Type of pain (feels like): none Frequency: constant Location of pain: none [facility]acy: [facility] Thank you calling [facility] [place]. You will receive a return call within 48 hours ( or 2 business days if close to the weekend). If you feel that this is an urgent issue and needs immediate attention, it is recommended that you contact your primary care provider office or proceed to your nearest Urgent Care Center of Emergency Room ED for evaluation/treatment. Vickie Dwyer, RN 06/18/2023 12:05 PM Signed Returned call to patient. Patient states that she has had elevated blood pressure with systolic blood pressure to 220 over the last 2 weeks at least. She has tried to go to the ED but has been sent home. She states that she has a headache and feels not right, her blood pressure currently is 186/84 after taking all morning medications. She states yesterday she lost vision in her eyes during [employer]. Patient states her PCP is out of the office and WEB PROGRAMMER is not available. Advised to go to local ED for evaluation. Patient agreed to plan. Will notify Dr Gracia's team Tiff Whelan RN 06/19/2023 9:48 AM Signed Called patient in follow up from symptom call yesterday. Patient states that she did not go to the ED yesterday. She reports that she has been to the ED several times for elevated blood pressure and each time they have dismissed her and told he it was anxiety. She said that it may be anxiety or maybe it is happening when she is around certain people. Patient states lots of emotional stress lately as son recently and daughter was just diagnosed with breast cancer. She also states that she feels like her blood pressure goes up when she walks or talks. Discussed with patient need for PCP appointment. Patient states that she has contacted her doctor's office and that he is out on vacation. She is unable to get an appointment until about two weeks out. Notified patient that this RN will contact her doctor's office to see about sooner appointment. She verbalized understanding and appreciated phone call with assistance. Called Dr. Mckenzie office regarding sooner appointment. Left confidential voicemail on nurse line and provided contact info for return call. Tiff Whelan RN [facility] 06/19/2023 3:11 PM Signed Patient states she is a lot worse today than yesterday and she doesn't feel good at all. Patient states the Keppra has many sides effects from taking Keppra and she is getting worse while taking Keppra. It is another physician that is giving her Keppra and she states he won't take her off of it. Dr. Noé Lilly. Patient states she went to see her Apprentice Painter Hand today in [place]. Allergies As of Date: 06/18/2023 Noted Allergy Reaction HYDANTOINS 05/01/2003 10 - Anaphylaxis Comments: throat swells ,hives PHENYTOIN 11/06/2012 10 - Anaphylaxis ADHESIVE TAPE (ROSINS) 09/11/2011 2 - Rash CARBAMAZEPINE 05/01/2003 9 - Itching Comments: Tegretal caused itching DIVALPROEX SODIUM 12/14/2018 5 - Intolerance Comments: Fine motor tremors DULERA (MOMETASONE-FORMOTEROL) 09/15/2014 5 - Intolerance Comments: Falls VALPROIC ACID ANALOGUES 05/01/2003 Comments: tremors AMLODIPINE 11/06/2012 16 - Unknown Comments: intolterance LABETALOL 11/06/2012 16 - Unknown Comments: Intolerance NIFEDIPINE 11/06/2012 16 - Unknown Comments: intolerance VALPROIC ACID 11/06/2012 5 - Intolerance Date Reviewed: 06/15/2023 Reviewed by: Frank García OCCA - Fully Assessed Reason for Visit: Symptoms [3640] Cmt: Blood pressure is high Prescrip (more content not included)... Normal [facility] COAGULATIONOrdered By: Sade Emmanuel on 06-18-2023 aPTT Coag (PPP) [Time] 33.6 s Normal 25.1 - 36.5 second(s) [facility] Comment on above: Interpretive Data: Dana sharif 15 days - 4 weeks 1 - 5 months 6 - 11 months 1 - 5 years 6 - 10 years 11 - 17 years PTT Mean: 35.4 (27.6-45.6) Mean: 33.5 (24.8-40.7) Mean: 32.4 (25.1-40.7) Mean: 31.6 (24.0-39.2) Mean: 31.6 (26.9-38.7) Mean: 31.0 (24.6-38.4) Pediatric Reference ranges were obtained from a study by Dharmesh Marin et al. prepared from 1437 samples obtained at 7 different centers using the same coagulation reagent and instrumentation as [facility]. Currently there are no coagulation studies available worldwide for children to 14 days, and no normal ranges. Heparin therapeutic range (represented by Anti-Factor Xa activity of 0.2 - 0.4 U/mL) corresponds to PTT of 56.6 - 109.0 sec. INR Coag (PPP) [Relative time] 0.95 {INR} Invalid Interpretation Code [facility] Comment on above: Interpretive Data: I NR results are specifically intended to assess patients stabilized on long-term Anticoagulation therapy suggested INR s Less Intensive Anticoagulation 2.0 3.0 Conventional Range 3.0 4.5 PT Coag (PPP) [Time] 10.6 s Normal 9.4 - 1 2.5 second(s) [facility] Comment on above: Interpretive Data: 1 5 days - 4 weeks 1 - 5 months 6 -11 months 1-5 years 6-10 years 11 -17 years Mean: 11.2 (9.5-12.6) Mean: 11.0 (9.7-12.8) Mean: 11.0 (9.8-13.0) Mean: 11.3 (9.9-13.4) Mean: 11.7 (10.0-14.6) Mean: 11.8 (10.0 - 14.1) Pediatric Reference ranges were obtained from a study by Dharmesh Marin et al. prepared from 1437 samples obtained at 7 different centers using the same coagulation reagent and instrumentation as [facility]. Currently there are no coagulation studies available worldwide for children to 14 days, and no normal ranges. CT Head or Brain w/o Contras ton 06-18-2023 CT Head or Brain w/o Contrast Normal [facility] Consent for Treatmenton Consent for Treatment [id number] [facility] Discharge Instructionson Discharge Instructions [id number] Normal [facility] ED Clinical Summaryon 2023 ED Clinical Summary Normal [facility] ED Note-Physicianon 06-18-19 ED Note-Physician Normal [facility] Comment on above: Result Comment: Elec tronically Signed By: Luis E Wen PA-C.br\Date and Time Signed: 06/18/23 15:52 EDT\.br\Electronically Co-Signed By: Reshma Ramirez M.D..br\Date and Time Co-Signed: 06/18/23 16:37 EDT ED Patient Education Noteon 06-18-2023 ED Patient Education Note Normal [facility] ED Patient Summaryon 024 ED Patient Summary Normal [facility] HEMATOLOGYOrdered By: SYSTEM SYSTEM on 06-18-2023 Basophils/100 WBC (Bld) 0.6 % Normal 0.0 - 2.0 % [facility] Basophils/Leukocytes Auto (Bld) [Pure # fraction] 0.0 E9/L Normal 0.0 - 0.2 E9/L [facility] Eosinophils (Bld) [#/Vol] 0.1 E9/L Normal 0.0 - 0.5 E9/L [facility] Eosinophils/100 WBC (Bld) 2.3 % Normal 0.0 - 8.0 % [facility] Erythrocyte distribution width (RBC) [Ratio] 13.9 % Normal 10.9 - 14.2 % [facility] Hematocrit (Bld) [Volume fraction] 34.8 % Normal 34.0 - 46.0 % [facility] Hemoglobin (Bld) [Mass/Vol] 11.9 g/dL Low 12.0 - 16.0 gm/dL [facility] Lymphocytes (Bld) [#/Vol] 1.2 E9/L Normal 1.0 - 4.0 E9/L [facility] Lymphocytes/100 WBC (Bld) 20.6 % Normal 14.0 - 50.0 % [facility] MCH (RBC) [Entitic mass] 30.4 pg Normal 27.0 - 34.0 pg [facility] MCHC (RBC) [Mass/Vol] 34.1 g/dL Normal 31.4 - 36.0 gm/dL [facility] MCV (RBC) [Entitic vol] 89.0 fL Normal 80.0 - 100.0 fL [facility] Monocytes (Bld) [#/Vol] 0.6 E9/L Normal 0.2 - 1.0 E9/L [facility] Monocytes/100 WBC (Bld) 9.2 % Normal 4.0 - 14.0 % [facility] Neutrophils (Bld) [#/Vol] 4.0 E9/L Normal 2.0 - 7.5 E9/L [facility] Neutrophils/100 WBC (Bld) 67.3 % Normal 36.0 - 75.0 % [facility] Platelet 204.0 E9/L Normal 150.0 - 500.0 E9/L [facility] Platelet mean volume (Bld) [Entitic vol] 6.9 fL Normal 6.4 - 10.8 fL [facility] RBC (Bld) [#/Vol] 3.9 E12/L Low 4.3 - 5.9 E12/L [facility] WBC corrected for nucl RBC Auto (Bld) [#/Vol] 6.0 E9/L Normal 4.0 - 11.0 E9/L [facility] Magnesiumon 06-18-2023 Magnesium [Mass/Vol] 1.9 mg/dL Normal 1.3-2.4 [facility] Comment on above: Performed By: #### 2 604269, 55553363, 7275375, 46631799, 48260828, 2120428 ####[facility] [address] [place] [address] PT & PTTon 06-18-2023 aPTT Coag (PPP) [Time] 33.6 second(s) Normal 25.1-36.5 [facility] Comment on above: Result Comment: Para meter 15 days - 4 weeks 1 - 5 months 6 - 11 months 1 - 5 years 6 - 10 years 11 - 17 years PTT Mean: 35.4 (27.6-45.6) Mean: 33.5 (24.8-40.7) Mean: 32.4 (25.1-40.7) Mean: 31.6 (24.0-39.2) Mean: 31.6 (26.9-38.7) Mean: 31.0 (24.6-38.4) Pediatric Reference ranges were obtained from a study by Dharmesh Marin et al. prepared from 1437 samples obtained at 7 different centers using the same coagulation reagent and instrumentation as [facility]. Currently there are no coagulation studies available worldwide for children to 14 days, and no normal ranges. Heparin therapeutic range (represented by Anti-Factor Xa activity of 0.2 - 0.4 U/mL) corresponds to PTT of 56.6 - 109.0 sec. Performed By: #### 2 575248, 67869048, 5368449, 23828427, 71952024, 8982718 ####[facility] [address] [place] [address] INR Coag (PPP) [Relative time] 0.95 {INR} Invalid Interpretation Code [facility] Comment on above: Result Comment: INR results are specifically intended to assess patients stabilized on long-term Anticoagulation therapy suggested INR?s ?Less Intensive Anticoagulation? 2.0 ? 3.0Conventional Range 3.0 ? 4.5 Performed By: #### 2 584983, 60703936, 5617929, 45870822, 80861819, 1339898 ####[facility] [address] [place] [address] PT Coag (PPP) [Time] 10.6 second(s) Normal 9.4-12.5 [facility] Comment on above: Result Comment: 15 d ays - 4 weeks 1 - 5 months 6 -11 months 1- 5 years 6-10 years 11 -17 years Mean: 11.2 (9.5-12.6) Mean: 11.0 (9.7-12.8) Mean: 11.0 (9.8-13.0) Mean: 11.3 (9.9-13.4) Mean: 11.7 (10.0-14.6) Mean: 11.8 (10.0 - 14.1) Pediatric Reference ranges were obtained from a study by Dharmesh Marin et al. prepared from 1437 samples obtained at 7 different centers using the same coagulation reagent and instrumentation as [facility]. Currently there are no coagulation studies available worldwide for children to 14 days, and no normal ranges. Performed By: #### 2 602584, 38376483, 6165691, 55668937, 26548794, 2459392 ####[facility] [address] [place] [address] Troponin 0 Hr.on 06-18-2023 Troponin 4.70 pg/mL Low 10.10-27.1 0 [facility] Comment on above: Result Comment: The 95% CI (Confidence Interval) PPV (Positive Predictive Value) for myocardial infarction in females is 38 pg/mL, in males 51 pg/mL. The results should be used in conjunction with clinical conditions of myocardial infarction.(Access High Sensitivity Troponin I Instructions For Use, Raegan Nolan, October 2017) Performed By: #### 2 124036, 20454087, 3299914, 28301887, 09483410, 9565112 ####[facility] [address] [place] [address] XR Chest Single Viewon 06-17 XR Chest Single View Normal [facility] XR Chest Single View Normal [facility] [facility] eGFRon 06-18-2023 eGFR 73 mL/min/1.73 m2 Normal >=59 [facility] Comment on above: Order Comment: Order added by Discern Expert. Performed By: #### 2 794818, 96666621, 9519280, 15888468, 08498395, 1955056 ####[facility] [address] [place] [address] Consent for Treatmenton Consent for Treatment [id number] Normal [facility] Discharge Instructionson Discharge Instructions [id number]#[id number] Normal [facility] ED Clinical Summaryon 2023 ED Clinical Summary Normal [facility] ED Note-Physicianon 06-17-19 ED Note-Physician Normal [facility] Comment on above: Result Comment: Elec tronically Signed By: Reshma Ramirez M.D.\.br\Date and Time Signed: 06/17/23 17:58 EDT ED Patient Education Noteon 06-17-2023 ED Patient Education Note Normal [facility] ED Patient Summaryon 024 ED Patient Summary Normal [facility] BMPon 06-16-2023 Anion gap [Moles/Vol] 10 mmol/L Normal 6-16 [facility] Comment on above: Performed By: #### 1 [id number], 3276728, 84271245, 53135827, 1715973, 73842787 ####[facility] [address] [place] [address] Calcium [Mass/Vol] 9.6 mg/dL Normal 8.9-11.1 [facility] Comment on above: Performed By: #### 1 8813634, 8877390, 32562686, 33073269, 6019950, 13706444 ####[facility] [address] [place] [address] Chloride [Moles/Vol] 98 mmol/L Low 101-111 [facility] Comment on above: Performed By: #### 1 9490964, 0906085, 51202540, 26750681, 7592608, 51706496 ####[facility] [address] [place] [address] CO2 [Moles/Vol] 28 mmol/L Normal 21-31 [facility] Comment on above: Performed By: #### 1 0285277, 3407257, 02751147, 04370690, 1945439, 05272866 ####[facility] [address] [place] [address] Creatinine [Mass/Vol] 1.1 mg/dL Normal 0.5-1.3 [facility] Comment on above: Performed By: #### 1 1781523, 2275407, 62608107, 63425439, 7591392, 27945281 ####[facility] [address] [place] [address] Glucose [Mass/Vol] 94 mg/dL Normal 55-199 [facility] Comment on above: Performed By: #### 1 8404965, 5661736, 36607624, 91536832, 4664455, 45867830 ####[facility] [address] [place] [address] Potassium [Moles/Vol] 4.0 mmol/L Normal 3.5-5.3 [facility] Comment on above: Performed By: #### 1 4998704, 0291921, 26986942, 31145204, 2697767, 58609396 ####[facility] [address] [place] [address] Sodium [Moles/Vol] 132 mmol/L Low 135-145 [facility] Comment on above: Performed By: #### 1 8031342, 8364071, 23300552, 23199021, 6409139, 16750005 ####[facility] [address] [place] [address] Urea nitrogen [Mass/Vol] 28 mg/dL High 5-21 [facility] Comment on above: Performed By: #### 1 3835837, 3420251, 58640245, 37225463, 5199429, 04139021 ####[facility] [address] [place] [address] Urea nitrogen/Creatinine [Mass ratio] 26 No Units High 10-20 [facility] Comment on above: Performed By: #### 1 5798866, 7213645, 91346771, 89913948, 1589318, 92555005 ####[address] [address] BNPon 4 Int Ctr BNP Pass Normal [facility] Comment on above: Performed By: #### 1 2620275, 0343346, 94312554, 47724984, 2449660, 15012677 ####[address] [address] Natriuretic peptide B (Bld) [Mass/Vol] 48 pg/mL Normal 5-80 [facility] Comment on above: Performed By: #### 1 7470611, 6935227, 77591203, 56094169, 4875699, 28784195 ####[place] [address] [place] [address] CBC w/ Auto Diffon 4 Basophils/100 WBC (Bld) 0.8 % Normal 0.0-2.0 [facility] Comment on above: Performed By: #### 1 6693848, 8876612, 09613704, 77933120, 6208600, 35315096 ####[facility] [address] [place] [address] Basophils/Leukocytes Auto (Bld) [Pure # fraction] 0.1 E9/L Normal 0.0-0.2 [facility] Comment on above: Performed By: #### 1 6683511, 6634267, 26682947, 37175197, 4054609, 02813866 ####[address] [place] [address] Eosinophils (Bld) [#/Vol] 0.2 E9/L Normal 0.0-0.5 [facility] Comment on above: Performed By: #### 1 6700571, 0073629, 38950080, 74367736, 9657535, 13213493 ####[place] [address] Eosinophils/100 WBC (Bld) 3.4 % Normal 0.0-8.0 [facility] Comment on above: Performed By: #### 1 8907899, 4196369, 70364889, 84769031, 1353023, 99421146 ####[place] [address] Erythrocyte distribution width (RBC) [Ratio] 14.0 % Normal 10.9-14.2 [facility] Comment on above: Performed By: #### 1 7951001, 8443716, 17694282, 71716717, 0450696, 82103302 ####[place] [address] Hematocrit (Bld) [Volume fraction] 34.1 % Normal 34.0-46.0 [facility] Comment on above: Performed By: #### 1 2784145, 6162002, 85941994, 55499540, 2438590, 82496210 ####[place] [place] [place] [address] Hemoglobin (Bld) [Mass/Vol] 11.4 g/dL Low 12.0-16.0 [facility] Comment on above: Performed By: #### 1 4189224, 5479433, 96487749, 02142592, 5172162, 81936045 ####[address] [address] Lymphocytes (Bld) [#/Vol] 1.7 E9/L Normal 1.0-4.0 [facility] Comment on above: Performed By: #### 1 7943835, 4915425, 83426421, 17632124, 2333440, 52909310 ####[facility] [address] [place] [address] Lymphocytes/100 WBC (Bld) 24.8 % Normal 14.0-50.0 [facility] Comment on above: Performed By: #### 1 1140342, 6726824, 35877167, 07853182, 1383616, 61942082 ####[facility] [address] [place] [address] MCH (RBC) [Entitic mass] 29.9 pg Normal 27.0-34.0 [facility] Comment on above: Performed By: #### 1 8218818, 8309543, 61898423, 88811497, 5705717, 59751314 ####[facility] [address] [place] [address] MCHC (RBC) [Mass/Vol] 33.6 g/dL Normal 31.4-36.0 [facility] Comment on above: Performed By: #### 1 3436439, 1060925, 60248417, 37778216, 2925834, 93148226 ####[facility] [address] [place] [address] MCV (RBC) [Entitic vol] 88.9 fL Normal 80.0-100.0 [facility] Comment on above: Performed By: #### 1 2159883, 8104007, 47350690, 72042498, 9299372, 49071298 ####[facility] [address] [place] [address] Monocytes (Bld) [#/Vol] 0.7 E9/L Normal 0.2-1.0 [facility] Comment on above: Performed By: #### 1 7596449, 9828430, 97474735, 79100961, 7265331, 89458557 ####[address] [address] Neutrophils (Bld) [#/Vol] 4.2 E9/L Normal 2.0-7.5 [facility] Comment on above: Performed By: #### 1 9786167, 6653661, 35166162, 59647525, 3220921, 42957461 ####[address] [address] Neutrophils/100 WBC (Bld) 60.8 % Normal 36.0-75.0 [facility] Comment on above: Performed By: #### 1 8753064, 2572926, 36884639, 40757275, 8304810, 26334274 ####[address] [address] Platelet 215.0 E9/L Normal 150.0-500. 0 [facility] Comment on above: Performed By: #### 1 6854998, 0494604, 08513560, 80810972, 6822620, 23150708 ####[address] [address] Platelet mean volume (Bld) [Entitic vol] 7.3 fL Normal 6.4-10.8 [facility] Comment on above: Performed By: #### 1 1077216, 6350537, 84498137, 30232780, 6281332, 18830671 ####[address] [address] RBC (Bld) [#/Vol] 3.8 E12/L Low 4.3-5.9 [facility] Comment on above: Performed By: #### 1 0585593, 1727097, 46446383, 43925432, 2622085, 75229936 ####[address] [address] WBC corrected for nucl RBC Auto (Bld) [#/Vol] 6.9 E9/L Normal 4.0-11.0 [facility] Comment on above: Performed By: #### 1 5954567, 9796882, 07794151, 34234759, 8210590, 13493291 ####[facility] [address] [place] [address] CHEMISTRYOrdered By: SYSTEM SYSTEM on 06-16-2023 Troponin 6.40 pg/mL Low 10.10 - 27.10 pg/mL [facility] Comment on above: Interpretive Data: T he 95% CI (Confidence Interval) PPV (Positive Predictive Value) for myocardial infarction in females is 38 pg/mL, in males 51 pg/mL. The results should be used in conjunction with clinical conditions of myocardial infarction. (Access High Sensitivity Troponin I Instructions For Use, [employer] [facility], October 2017) Anion gap [Moles/Vol] 10 mmol/L Normal 6 - 16 mEq/L [facility] Calcium [Mass/Vol] 9.6 mg/dL Normal 8.9 - 11. 1 mg/dL [facility] Chloride [Moles/Vol] 98 mmol/L Low 101 - 1 11 mmol/L [facility] CO2 [Moles/Vol] 28 mmol/L Normal 21 - 31 mmol/L [facility] Creatinine [Mass/Vol] 1.1 mg/dL Normal 0.5 - 1.3 mg/dL [facility] eGFR 50 mL/min/1.73 m2 Low >=59mL/min /1.73 m2 [facility] Glucose [Mass/Vol] 94 mg/dL Normal 55 - 199 mg/dL [facility] Potassium [Moles/Vol] 4.0 mmol/L Normal 3.5 - 5.3 mmol/L [facility] Sodium [Moles/Vol] 132 mmol/L Low 135 - 145 mmol/L [facility] Troponin 6.70 pg/mL Low 10.10 - 27.10 pg/mL [facility] Comment on above: Interpretive Data: T he 95% CI (Confidence Interval) PPV (Positive Predictive Value) for myocardial infarction in females is 38 pg/mL, in males 51 pg/mL. The results should be used in conjunction with clinical conditions of myocardial infarction. (Access High Sensitivity Troponin I Instructions For Use, [employer], October 2017) Urea nitrogen [Mass/Vol] 28 mg/dL High 5 - 21 mg/dL [facility] Urea nitrogen/Creatinine [Mass ratio] 26 mg/mg High 10 - 20 [facility] CHEMISTRYOrdered By: Paul christie on 06-16-2023 Natriuretic peptide B (Bld) [Mass/Vol] 48 pg/mL Normal 5 - 80 pg/mL [facility] COAGULATIONOrdered By: Paul Mendez on 06-16-2023 aPTT Coag (PPP) [Time] 31.8 s Normal 25.1 - 36.5 second(s) [facility] Comment on above: Interpretive Data: P arameter 15 days - 4 weeks 1 - 5 months 6 - 11 months 1 - 5 years 6 - 10 years 11 - 17 years PTT Mean: 35.4 (27.6-45.6) Mean: 33.5 (24.8-40.7) Mean: 32.4 (25.1-40.7) Mean: 31.6 (24.0-39.2) Mean: 31.6 (26.9-38.7) Mean: 31.0 (24.6-38.4) Pediatric Reference ranges were obtained from a study by Dharmesh Marin et al. prepared from 1437 samples obtained at 7 different centers using the same coagulation reagent and instrumentation as [facility]. Currently there are no coagulation studies available worldwide for children to 14 days, and no normal ranges. Heparin therapeutic range (represented by Anti-Factor Xa activity of 0.2 - 0.4 U/mL) corresponds to PTT of 56.6 - 109.0 sec. INR Coag (PPP) [Relative time] 0.86 {INR} Invalid Interpretation Code [facility] Comment on above: Interpretive Data: I NR results are specifically intended to assess patients stabilized on long-term Anticoagulation therapy suggested INR s Less Intensive Anticoagulation 2.0 3.0 Conventional Range 3.0 4.5 PT Coag (PPP) [Time] 9.6 s Normal 9.4 - 1 2.5 second(s) [facility] Comment on above: Interpretive Data: 1 5 days - 4 weeks 1 - 5 months 6 -11 months 1 5 years 6 10 years 11 -17 years Mean: 11.2 (9.5 12.6) Mean: 11.0 (9.7 12.8) Mean: 11.0 (9.8 13.0) Mean: 11.3 (9.9 13.4) Mean: 11.7 (10.0 14.6) Mean: 11.8 (10.0 - 14.1) Pediatric Reference ranges were obtained from a study by dominik Haas al. prepared from 1437 samples obtained at 7 different centers using the same coagulation reagent and instrumentation as [facility]. Currently there are no coagulation studies available worldwide for children to 14 days, and no normal ranges. CT Head or Brain w/o Contras ton 06-16-2023 CT Head or Brain w/o Contrast Normal [facility] Consent for Treatmenton Consent for Treatment [id number]#1.00TIFF Normal [facility] ED Clinical Summaryon 2023 ED [facility] ED Note-Physician Normal [facility] Comment on above: Result Comment: Elec tronically Signed By: James Nguyen MD\.br\Date and Time Signed: 06/23/23 13:52 EDT\.br\Electronically Co-Signed By: Stacia Dwyer DO\.br\Date and Time Co-Signed: 06/16/23 08:56 EDT ED Patient Education Noteon 06-16-2023 ED Patient Education Note Normal [facility] ED Patient Summaryon 024 ED Patient Summary Normal [facility] HEMATOLOGYOrdered By: SYSTEM SYSTEM on 06-16-2023 Basophils/100 WBC (Bld) 0.8 % Normal 0.0 - 2.0 % [facility] Basophils/Leukocytes Auto (Bld) [Pure # fraction] 0.1 E9/L Normal 0.0 - 0.2 E9/L [facility] Eosinophils (Bld) [#/Vol] 0.2 E9/L Normal 0.0 - 0.5 E9/L [facility] Eosinophils/100 WBC (Bld) 3.4 % Normal 0.0 - 8.0 % [facility] Erythrocyte distribution width (RBC) [Ratio] 14.0 % Normal 10.9 - 14.2 % [facility] Hematocrit (Bld) [Volume fraction] 34.1 % Normal 34.0 - 46.0 % [facility] Hemoglobin (Bld) [Mass/Vol] 11.4 g/dL Low 12.0 - 16.0 gm/dL [facility] Lymphocytes (Bld) [#/Vol] 1.7 E9/L Normal 1.0 - 4.0 E9/L [facility] Lymphocytes/100 WBC (Bld) 24.8 % Normal 14.0 - 50.0 % [facility] MCH (RBC) [Entitic mass] 29.9 pg Normal 27.0 - 34.0 pg [facility] MCHC (RBC) [Mass/Vol] 33.6 g/dL Normal 31.4 - 36.0 gm/dL [facility] MCV (RBC) [Entitic vol] 88.9 fL Normal 80.0 - 100.0 fL [facility] Monocytes (Bld) [#/Vol] 0.7 E9/L Normal 0.2 - 1.0 E9/L [facility] Monocytes/100 WBC (Bld) 10.2 % Normal 4.0 - 14.0 % [facility] Neutrophils (Bld) [#/Vol] 4.2 E9/L Normal 2.0 - 7.5 E9/L [facility] Neutrophils/100 WBC (Bld) 60.8 % Normal 36.0 - 75.0 % [facility] Platelet 215.0 E9/L Normal 150.0 - 500.0 E9/L [facility] Platelet mean volume (Bld) [Entitic vol] 7.3 fL Normal 6.4 - 10.8 fL [facility] RBC (Bld) [#/Vol] 3.8 E12/L Low 4.3 - 5.9 E12/L [facility] WBC corrected for nucl RBC Auto (Bld) [#/Vol] 6.9 E9/L Normal 4.0 - 11.0 E9/L [facility] Monitor Recordon 06-16-2023 Monitor Record [id number]#1.00TIFF Normal [facility] Monitor Record [id number]#1.00TIFF Normal [facility] PT & PTTon 06-16-2023 aPTT Coag (PPP) [Time] 31.8 second(s) Normal 25.1-36.5 [facility] Comment on above: Result Comment: Para meter 15 days - 4 weeks 1 - 5 months 6 - 11 months 1 - 5 years 6 - 10 years 11 - 17 years PTT Mean: 35.4 (27.6-45.6) Mean: 33.5 (24.8-40.7) Mean: 32.4 (25.1-40.7) Mean: 31.6 (24.0-39.2) Mean: 31.6 (26.9-38.7) Mean: 31.0 (24.6-38.4) Pediatric Reference ranges were obtained from a study by dominik Haas al. prepared from 1437 samples obtained at 7 different centers using the same coagulation reagent and instrumentation as [facility]. Currently there are no coagulation studies available worldwide for children to 14 days, and no normal ranges. Heparin therapeutic range (represented by Anti-Factor Xa activity of 0.2 - 0.4 U/mL) corresponds to PTT of 56.6 - 109.0 sec. Performed By: #### 1 [id number], 8527786, 26414713, 42072071, 9752555, 52049322 ####[facility] [address] [place] [address] INR Coag (PPP) [Relative time] 0.86 {INR} Invalid Interpretation Code [facility] Comment on above: Result Comment: INR results are specifically intended to assess patients stabilized on long-term Anticoagulation therapy suggested INR?s ?Less Intensive Anticoagulation? 2.0 ? 3.0Conventional Range 3.0 ? 4.5 Performed By: #### 1 5822166, 0142520, 55938679, 47321876, 1935488, 21969111 ####[facility] [address] [place] [address] PT Coag (PPP) [Time] 9.6 second(s) Normal 9.4-12.5 [facility] Comment on above: Result Comment: 15 d ays - 4 weeks 1 - 5 months 6 -11 months 1 ? 5 years 6 ? 10 years 11 -17 years Mean: 11.2 (9.5 ? 12.6) Mean: 11.0 (9.7 ? 12.8) Mean: 11.0 (9.8 ? 13.0) Mean: 11.3 (9.9 ? 13.4) Mean: 11.7 (10.0 ? 14.6) Mean: 11.8 (10.0 - 14.1) Pediatric Reference ranges were obtained from a study by dominik Haas al. prepared from 1437 samples obtained at 7 different centers using the same coagulation reagent and instrumentation as [facility]. Currently there are no coagulation studies available worldwide for children to 14 days, and no normal ranges. Performed By: #### 1 9869961, 6503787, 73727907, 52876706, 8002902, 91270821 ####[facility] [address] [place] [address] Pre-Arrival Noteon Pre-Arrival Note Normal [facility] Troponin 0 Hr.on 06-16-2023 Troponin 6.70 pg/mL Low 10.10-27.1 0 [facility] Comment on above: Result Comment: The 95% CI (Confidence Interval) PPV (Positive Predictive Value) for myocardial infarction in females is 38 pg/mL, in males 51 pg/mL. The results should be used in conjunction with clinical conditions of myocardial infarction.(Access High Sensitivity Troponin I Instructions For Use, [employer] [facility], October 2017) Performed By: #### 1 5733075, 0636422, 75849001, 24185358, 3410511, 06583667 ####[facility] [address] [place] [address] Troponin 3 Hr.on 06-16-2023 Troponin 6.40 pg/mL Low 10.10-27.1 0 [facility] Comment on above: Result Comment: The 95% CI (Confidence Interval) PPV (Positive Predictive Value) for myocardial infarction in females is 38 pg/mL, in males 51 pg/mL. The results should be used in conjunction with clinical conditions of myocardial infarction.(Access High Sensitivity Troponin I Instructions For Use, [employer], October 2017) Performed By: #### 1 [id number] ####[facility] [address] [place] [address] XR Chest Single Viewon 06-15 XR Chest Single View Normal [facility] eGFRon 06-16-2023 eGFR 50 mL/min/1.73 m2 Low >=59 [facility] Comment on above: Order Comment: Order added by Discern Expert. Performed By: #### 1 2680079, 5747965, 48959511, 60900219, 4775440, 20963019 ####[facility] [address] [place] [address] CNOVon 06-15-2023 CNOV Office Visit (NE50MN ) -- CARLY MARCELINO ([id number]) 1940 F Date Time Provider Department 06/15/23 10:00 AM NOÉ LILLY NE50MN During your visit today, we recorded the following information about you: Pulse Blood pressure Weight Height 69/minute 176/76 86.6 kg 1.702 m Noé Lilly MD 06/15/2023 10:36 AM Signed You can continue taking Keppra 500 mg 1 tab twice a day for a month and if side effects continue to occur, stop taking the keppra immediate release and start taking Keppra extended release 500 mg at bedtime Ok to continue taking Gabapentin as previously prescribed Noé Lilly MD 06/17/2023 2:07 PM Signed [facility] Patient Name: Carly MORALES Date of : 1940 INITIAL EPILEPSY CLINIC NOTE 06/15/2023 10:00 AM CHIEF COMPLAINT: New Patient, Seizures, and Epilepsy HISTORY OF PRESENT ILLNESS Ms. Marcelino is a 82 year old right-handed female seen in [facility] for initial consultation. There is no one accompanying the patient during today's visit. 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 Seizure description: Loss of awareness without aura. Onset was at the age of 8-9 years. Her last seizure was a very long time ago, probably when she was in college. She was diagnosed with epilepsy at the age of 36 years based on EEG findings and she was started on Dilantin. She mentioned that she was taking a very high dose and suffered from toxicity from the medication. She had an episode of loss of consciousness at work and the next thing she recalls is feeling her body floating. She was seen by a neurologist at that time and her medication was changed to Depakote which caused tremors and then Tegretol that caused itching. Lastly, she was started on Gabapentin which she had taken for years. No history of seizures. No episodes of loss of awareness. No convulsion. She lives alone. She initially presented to [facility] ED 04/20/2023 for evaluation of worst headache of life (awakening her from sleep, no history of prior headaches) in the setting of multiple stressors (loss of son, daughter diagnosed breast cancer, having to. Multiple family members that required). Headache improved to 5/10 with symptomatic management and ultimately discharged home. 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 [facility] was transferred to [facility] further management. No clear etiology was found on vessel imaging and her SAH was thought to be due to Eliquis. She was started on bedside EEG monitoring due to her history of seizures but no clinical seizure witnessed at the time of her admission. EEG showed left temporal sharp waves and she was started on Keppra and discharged on 500 mg BID. She has been doing well since discharge, slowly regaining her strength. She denies having any seizures, no episodes of loss of awareness, no shaking in her limbs, no abnormal movements, no tongue biting or urinary incontinence. She did mention having had 4 episodes of bilateral lower extremities tingling and feeling of heat with elevated blood pressure without loss of awareness. She feels anxious during these and has been describing them as anxiety attacks . They are brief and are relieved by taking Xanax. Total # of Current Anti-seizure Medications: Side Effects to Current Anti-seizure Medications: Seizure Frequency at First Visit: Longest Seizure-free Interval: CURRENT OUTPATIENT ANTISEIZURE MEDICATIONS (as of the start of the encounter) gabapentin (NEURONTIN) 400 mg capsule (Taking) gabapentin (NEURONTIN) 300 mg capsule (Taking) levETIRAcetam (KEPPRA) 500 mg tablet Take 1 tablet by mouth two times a day. Prior Anti-seizure Therapies: Trial Adequacy: Max Daily Dose Achieved: Side Effects: Effectiveness: Comments: Comorbidities: Episode Description: Patient Entered Data: EPILEPSY SCORE No Data PHQ-9 SCORE - APOORVA 2 SCORE - APOORVA 7 SCORE - QOLIE-10 SCORE (0=worst; 100=best QoL - higher scores represent better function) - LSSS SCORE (0- no seizures 100- most severe possible seizures) - C-SSRS SCREEN - On average, how many hours of sleep do you get in a 24-hour period? - PROMIS Sleep Disturbance T-SCORE - Have you been diagnosed with Sleep Apnea? - Seizur (more content not included)... Normal [facility] BMPon 06-14-2023 Anion gap [Moles/Vol] 11 mmol/L Normal 6-16 [facility] Comment on above: Performed By: #### 2 940788, 8829218, 66253641 ####[facility] [address] [place] [address] Calcium [Mass/Vol] 10.0 mg/dL Normal 8.9-11.1 [facility] Comment on above: Performed By: #### 2 230378, 9914265, 74557455 ####[facility] [address] [place] [address] Chloride [Moles/Vol] 100 mmol/L Low 101-111 [facility] Comment on above: Performed By: #### 2 878427, 6346375, 39350402 ####[facility] [address] [place] [address] CO2 [Moles/Vol] 31 mmol/L Normal 21-31 [facility] Comment on above: Performed By: #### 2 019924, 8456716, 37860641 ####[facility] [address] [place] [address] Creatinine [Mass/Vol] 0.8 mg/dL Normal 0.5-1.3 [facility] Comment on above: Performed By: #### 2 638774, 0995704, 93890499 ####[facility] [address] [place] [address] Glucose [Mass/Vol] 87 mg/dL Normal 55-199 [facility] Comment on above: Performed By: #### 2 586563, 5373189, 64948174 ####[address] [address] Potassium [Moles/Vol] 3.7 mmol/L Normal 3.5-5.3 [facility] Comment on above: Performed By: #### 2 518852, 1552214, 80809105 ####[facility] [address] [place] [address] Sodium [Moles/Vol] 138 mmol/L Normal 135-145 [facility] Comment on above: Performed By: #### 2 605348, 0285022, 81106572 ####[facility] [address] [place] [address] Urea nitrogen [Mass/Vol] 18 mg/dL Normal 5-21 [facility] Comment on above: Performed By: #### 2 096131, 7845656, 00732287 ####[facility] [address] [place] [address] Urea nitrogen/Creatinine [Mass ratio] 22 No Units High 10-20 [facility] Comment on above: Performed By: #### 2 693832, 2961494, 13679153 ####[facility] [address] [address] CBC w/ Auto Diffon 4 Basophils/100 WBC (Bld) 0.7 % Normal 0.0-2.0 [facility] Comment on above: Performed By: #### 2 412323, 2204765, [id number] ####[address] [address] Basophils/Leukocytes Auto (Bld) [Pure # fraction] 0.0 E9/L Normal 0.0-0.2 [facility] Comment on above: Performed By: #### 2 037202, 9463630, 65100464 ####[address] [address] Eosinophils (Bld) [#/Vol] 0.2 E9/L Normal 0.0-0.5 [facility] Comment on above: Performed By: #### 2 773403, 3825541, 65453873 ####[address] [address] Eosinophils/100 WBC (Bld) 3.3 % Normal 0.0-8.0 [facility] Comment on above: Performed By: #### 2 814719, 5367100, 93018713 ####[address] [address] Erythrocyte distribution width (RBC) [Ratio] 14.0 % Normal 10.9-14.2 [facility] Comment on above: Performed By: #### 2 129168, 1298934, 50828216 ####[address] [address] Hematocrit (Bld) [Volume fraction] 37.6 % Normal 34.0-46.0 [facility] Comment on above: Performed By: #### 2 074076, 6156321, 62027398 ####[address] [address] Hemoglobin (Bld) [Mass/Vol] 12.7 g/dL Normal 12.0-16.0 [facility] Comment on above: Performed By: #### 2 991444, 9699356, 94792112 ####[address] [address] Lymphocytes (Bld) [#/Vol] 1.8 E9/L Normal 1.0-4.0 [facility] Comment on above: Performed By: #### 2 820730, 7033186, 90157923 ####[address] [address] Lymphocytes/100 WBC (Bld) 28.2 % Normal 14.0-50.0 [facility] Comment on above: Performed By: #### 2 200394, 7760397, 30475178 ####[address] [address] MCH (RBC) [Entitic mass] 30.1 pg Normal 27.0-34.0 [facility] Comment on above: Performed By: #### 2 872483, 6944925, 85871391 ####[address] [address] MCHC (RBC) [Mass/Vol] 33.7 g/dL Normal 31.4-36.0 [facility] Comment on above: Performed By: #### 2 180941, 1101963, 20313975 ####[address] [address] MCV (RBC) [Entitic vol] 89.4 fL Normal 80.0-100.0 [facility] Comment on above: Performed By: #### 2 066255, 1939627, 39207991 ####[address] [address] Monocytes (Bld) [#/Vol] 0.6 E9/L Normal 0.2-1.0 [facility] Comment on above: Performed By: #### 2 664451, 3512671, 34027302 ####[address] [address] Neutrophils (Bld) [#/Vol] 3.7 E9/L Normal 2.0-7.5 [facility] Comment on above: Performed By: #### 2 528902, 5740830, 14165464 ####[address] [address] Neutrophils/100 WBC (Bld) 59.1 % Normal 36.0-75.0 [facility] Comment on above: Performed By: #### 2 049926, 2395412, 25926104 ####[address] [address] Platelet mean volume (Bld) [Entitic vol] 7.2 fL Normal 6.4-10.8 [facility] Comment on above: Performed By: #### 2 063159, 7715955, 13463336 ####[address] [address] Platelets (Bld) [#/Vol] 194.0 E9/L Normal 150.0-500. 0 [facility] Comment on above: Performed By: #### 2 837732, 6901284, 70194983 ####[address] [address] RBC (Bld) [#/Vol] 4.2 E12/L Low 4.3-5.9 [facility] Comment on above: Performed By: #### 2 657488, 1662037, 23101405 ####[address] [address] WBC corrected for nucl RBC Auto (Bld) [#/Vol] 6.3 E9/L Normal 4.0-11.0 [facility] Comment on above: Performed By: #### 2 857583, 5206697, 02710973 ####[address] [address] CHEMISTRYOrdered By: SYSTEM SYSTEM on 06-14-2023 Anion gap [Moles/Vol] 11 mmol/L Normal 6 - 16 mEq/L Rem[facility] Chem Calcium [Mass/Vol] 10.0 mg/dL Normal 8.9 - 11. 1 mg/dL [facility] Chem Chloride [Moles/Vol] 100 mmol/L Low 101 - 1 11 mmol/L [facility] Chem CO2 [Moles/Vol] 31 mmol/L Normal 21 - 31 mmol/L Rem[facility] Chem Creatinine [Mass/Vol] 0.8 mg/dL Normal 0.5 - 1.3 mg/dL Rem[facility] Chem eGFR 73 mL/min/1.73 m2 Normal >=59mL/min /1.73 m2 [facility] Chem Glucose [Mass/Vol] 87 mg/dL Normal 55 - 199 mg/dL [facility] Chem Potassium [Moles/Vol] 3.7 mmol/L Normal 3.5 - 5.3 mmol/L [facility] Chem Sodium [Moles/Vol] 138 mmol/L Normal 135 - 145 mmol/L [facility] Chem Urea nitrogen [Mass/Vol] 18 mg/dL Normal 5 - 21 mg/dL Rem[facility] Chem Urea nitrogen/Creatinine [Mass ratio] 22 mg/mg High 10 - 20 Remisol Chem Consent for Treatmenton Consent for Treatment [id number] Normal [facility] Discharge Instructionson Discharge Instructions [id number] Normal [facility] ED Clinical Summaryon 2023 ED Clinical Summary Normal [facility] ED Note-Physicianon 06-14-19 ED Note-Physician Normal [facility] Comment on above: Result Comment: Elec tronically Signed By: Do Montez DO.chepe\Date and Time Signed: 06/14/23 06:57 EDT ED Patient Education Noteon 06-14-2023 ED Patient Education Note Normal [facility] ED Patient Summaryon 024 ED Patient Summary Normal [facility] EMS Documentationon 06-14-19 EMS Documentation Please click on link to see report Normal [facility] Comment on above: Result Comment: Miss ing Attachment - total size limit for all attachments exceeded [email or web address] Can be viewed in source system HEMATOLOGYOrdered By: Audrey Begum on 06-14-2023 Basophils/100 WBC (Bld) 0.7 % Normal 0.0 - 2.0 % [facility] Heme Basophils/Leukocytes Auto (Bld) [Pure # fraction] 0.0 E9/L Normal 0.0 - 0.2 E9/L [facility]e Eosinophils (Bld) [#/Vol] 0.2 E9/L Normal 0.0 - 0.5 E9/L [facility]e Eosinophils/100 WBC (Bld) 3.3 % Normal 0.0 - 8.0 % [facility] Heme Erythrocyte distribution width (RBC) [Ratio] 14.0 % Normal 10.9 - 14.2 % [facility] Hematocrit (Bld) [Volume fraction] 37.6 % Normal 34.0 - 46.0 % [facility]e Hemoglobin (Bld) [Mass/Vol] 12.7 g/dL Normal 12.0 - 16.0 gm/dL [facility]e Lymphocytes (Bld) [#/Vol] 1.8 E9/L Normal 1.0 - 4.0 E9/L [facility]e Lymphocytes/100 WBC (Bld) 28.2 % Normal 14.0 - 50.0 % [facility] Heme MCH (RBC) [Entitic mass] 30.1 pg Normal 27.0 - 34.0 pg Remisol Heme MCHC (RBC) [Mass/Vol] 33.7 g/dL Normal 31.4 - 36.0 gm/dL [facility] Heme MCV (RBC) [Entitic vol] 89.4 fL Normal 80.0 - 100.0 fL [facility] Heme Monocytes (Bld) [#/Vol] 0.6 E9/L Normal 0.2 - 1.0 E9/L [facility] Heme Monocytes/100 WBC (Bld) 8.7 % Normal 4.0 - 14.0 % [facility] Heme Neutrophils (Bld) [#/Vol] 3.7 E9/L Normal 2.0 - 7.5 E9/L [facility] Heme Neutrophils/100 WBC (Bld) 59.1 % Normal 36.0 - 75.0 % [facility] Heme Platelet mean volume (Bld) [Entitic vol] 7.2 fL Normal 6.4 - 10.8 fL [facility] Heme Platelets (Bld) [#/Vol] 194.0 E9/L Normal 150.0 - 500.0 E9/L Rem[facility] Heme RBC (Bld) [#/Vol] 4.2 E12/L Low 4.3 - 5.9 E12/L [facility] Heme WBC corrected for nucl RBC Auto (Bld) [#/Vol] 6.3 E9/L Normal 4.0 - 11.0 E9/L [facility] Heme Influenza A&B Agon Influenzae A Ag Negative Normal Negative [facility] Comment on above: Performed By: #### 1 [id number], [id number] ####[facility] [address] [place] [address] Influenzae B Ag Negative Normal Negative [facility] Comment on above: Result Comment: Test sensitivity and specificity vary for age group, specimen type, antigen types, and prevalence of disease. Test results must be evaluated in conjunction with other clinical data available to the physician. Individuals who received nasally administered Influenza A vaccine may have positive test results up to 3 days after vaccination. Performed By: #### 1 [id number], [id number] ####[facility] [address] [place] [address] MICRO OTHER TESTSOrdered By: Hebert Begum on 06-14-2023 Influenzae A Ag Negative (06/14/23 6:11 AM) Normal Negative [facility] Influenzae B Ag Negative 2 (06/14/23 6:11 AM) Normal Negative [facility] Comment on above: Interpretive Data: T est sensitivity and specificity vary for age group, specimen type, antigen types, and prevalence of disease. Test results must be evaluated in conjunction with other clinical data available to the physician. Individuals who received nasally administered Influenza A vaccine may have positive test results up to 3 days after vaccination. Rapid COV Int NEG Ctl Pass (06/14/23 6:11 AM) Normal [facility] Rapid COV Int POS Ctl Pass (06/14/23 6:11 AM) Normal [facility] Sero SARS-CoV+SARS-CoV-2 (COVID-19) Ag IA.rapid Ql (Resp) Not Detected 3 (06/14/23 6:11 AM) Normal Not Detected [facility] Comment on above: Interpretive Data: T he BD Veritor System for Rapid Detection of SARS-CoV-2 is a chromatographic digital immunoassay intended for the direct and qualitative detection of SARS-CoV-2 nucleocapsid antigens in nasal swabs from individuals who are suspected of COVID-19 by their healthcare provider within the first five days of the onset of symptoms. Negative results should be treated as presumptive, do not rule out SARS-CoV-2 infection and should not be used as the sole basis for treatment or patient management decisions, including infection control decisions. Negative results should be considered in the context of a patient s recent exposures, history and the presence of clinical signs and symptoms consistent with COVID-19, and confirmed with a molecular assay, if necessary, for patient management. For in vitro diagnostic use. In the [place], only for use under an Emergency Use Authorization. In the [place], this test has not been FDA cleared or approved; this test has been authorized by FDA under an EUA for use by authorized laboratories; use by laboratories certified under the CLIA, 42 U.S.C. 263a, that meet requirements to perform moderate, high, or waived complexity tests and at the Point of Care (POC), i.e., in patient care settings operating under a CLIA Certificate of Waiver, Certificate of Compliance, or Certificate of Accreditation. This test has been authorized only for the detection of proteins from SARS-CoV-2, not for any other viruses or pathogens; and, in the [place], this test is only authorized for the duration of the declaration that circumstances exist justifying the authorization of emergency use of in vitro diagnostics for detection and/or diagnosis of the virus that causes COVID-19 under Section 564(b)(1) of the Act, 21 U.S.C. 360bbb-3(b)(1), unless the authorization is terminated or revoked sooner. Pre-Arrival Noteon Pre-Arrival Note Normal [facility] Rapid COVID Antigen ([facility])on 06-14-2023 Rapid COV Int NEG Ctl Pass Normal [facility] Comment on above: Performed By: #### 1 [id number], [id number] ####Enrrique [facility] [address] [place] [address] Rapid COV Int POS Ctl Pass Normal [facility] Comment on above: Performed By: #### 1 7382656, [id number] ####[facility] [address] [place] [address] SARS-CoV+SARS-CoV-2 (COVID-19) Ag IA.rapid Ql (Resp) Not detected Normal Not Detected [facility] Comment on above: Result Comment: The [employer]? System for Rapid Detection of SARS-CoV-2 is a chromatographic digital immunoassay intended for the direct and qualitative detection of SARS-CoV-2 nucleocapsid antigens in nasal swabs from individuals who are suspected of COVID-19 by their healthcare provider within the first five days of the onset of symptoms. Negative results should be treated as presumptive, do not rule out SARS-CoV-2 infection and should not be used as the sole basis for treatment or patient management decisions, including infection control decisions. Negative results should be considered in the context of a patient?s recent exposures, history and the presence of clinical signs and symptoms consistent with COVID-19, and confirmed with a molecular assay, if necessary, for patient management. For in vitro diagnostic use. In the [place], only for use under an Emergency Use Authorization. In the [place], this test has not been FDA cleared or approved; this test has been authorized by FDA under an EUA for use by authorized laboratories; use by laboratories certified under the CLIA, 42 U.S.C. ?263a, that meet requirements to perform moderate, high, or waived complexity tests and at the Point of Care (POC), i.e., in patient care settings operating under a CLIA Certificate of Waiver, Certificate of Compliance, or Certificate of Accreditation.This test has been authorized only for the detection of proteins from SARS-CoV-2, not for any other viruses or pathogens; and, in the [place], this test is only authorized for the duration of the declaration that circumstances exist justifying the authorization of emergency use of in vitro diagnostics for detection and/or diagnosis of the virus that causes COVID-19 under Section 564(b)(1) of the Act, 21 U.S.C. ? 360bbb-3(b)(1), unless the authorization is terminated or revoked sooner. Performed By: #### 1 [id number], [id number] ####[facility] [address] [place] [address] UA with Cult Rflxon 06-14-19 24 Color (U) Colorless Abnormal Yellow [facility] Comment on above: Result Comment: Micr oscopic readings are only performed on those samples that meet specific criteria set forth by [facility]. Performed By: #### 4 [id number] ####[facility] [address] [place] [address] Glucose (U) [Mass/Vol] Negative Normal Negative [facility] Comment on above: Performed By: #### 4 [id number] ####[facility] [address] [place] [address] Ketones Ql (U) Negative Normal Negative [facility] Comment on above: Performed By: #### 4 [id number] ####[facility] [address] [place] [address] UA Blood Negative Normal Negative [facility] Comment on above: Performed By: #### 4 [id number] ####[facility] [address] [place] [address] UA Clarity Clear Normal Clear [facility] Comment on above: Performed By: #### 4 [id number] ####[facility] [address] [place] [address] UA Leuk Est Negative Normal Negative [facility] Comment on above: Performed By: #### 4 [id number] ####[facility] [address] [place] [address] UA Nitrite Negative Normal Negative [facility] Comment on above: Performed By: #### 4 [id number] ####[facility] [address] [place] [address] UA pH 7.5 Invalid Interpretation Code 5.0-9.0 [facility] Comment on above: Performed By: #### 4 [id number] ####[facility] [address] [place] [address] UA Protein Trace Abnormal Negative [facility] Comment on above: Performed By: #### 4 [id number] ####[facility] [address] [place] [address] UA Spec Grav 1.005 Invalid Interpretation Code 1.005-1.03 0 [facility] Comment on above: Performed By: #### 4 [id number] ####[facility] [address] [place] [address] UA Urobilinogen Negative Normal Negative [facility] Comment on above: Performed By: #### 4 [id number] ####[facility] [address] [place] [address] Urobilinogen (U) [Mass/Vol] Negative Normal Negative [facility] Comment on above: Performed By: #### 4 [id number] ####[facility] [address] [place] [address] UA Spec Desc Clean Catch Normal [facility] Comment on above: Performed By: #### 4 [id number] ####[facility] [address] [place] [address] URINALYSISOrdered By: SYSTEM SYSTEM on 06-14-2023 Color (U) Colorless 1 *ABN* (06/14/23 6:40 AM) Invalid Interpretation Code Yellow [facility] UA Auto SS Comment on above: Interpretive Data: M icroscopic readings are only performed on those samples that meet specific criteria set forth by [facility]. Glucose (U) [Mass/Vol] Negative Normal Negat ivemg /dL [facility] UA Auto SS Ketones Ql (U) Negative Normal Negativemg /dL [facility] UA Auto SS UA Blood Negative Normal Negativemg /dL [facility] UA Auto SS UA Clarity Clear (06/14/23 6:40 AM) Normal Clear [facility] UA Auto SS UA Leuk Est Negative Normal NegativeLe u/uL [facility] UA Auto SS UA Nitrite Negative Normal Negativemg /dL [facility] UA Auto SS UA pH 7.5 *NA* (06/14/23 6:40 AM) Invalid Interpretation Code 5.0 - 9.0 [facility] UA Auto SS UA Protein Trace mg/dL Invalid Interpretation Code Negativemg /dL [facility] UA Auto SS UA Spec Grav 1.005 *NA* (06/14/23 6:40 AM) Invalid Interpretation Code 1.005 - 1.030 [facility] UA Auto SS UA Urobilinogen Negative Normal Negativemg /dL [facility] UA Auto SS Urobilinogen (U) [Mass/Vol] Negative Normal Negativemg /dL [facility] UA Auto SS URINALYSISOrdered By: Susu Montez on 06-14-2023 UA Spec Desc Clean Catch (06/14/23 6:40 AM) Normal [facility] UA Auto SS Work Phone: eGFRon 06-14-2023 eGFR 73 mL/min/1.73 m2 Normal >=59 [facility] Comment on above: Order Comment: Order added by Discern Expert. Performed By: #### 2 297760, 5001868, [id number] ####[address] [place] [address] Monitor Recordon 06-09-2023 Monitor Record [id number] Normal [facility] CBC w/ Auto Diffon Basophils/100 WBC (Bld) 0.5 % Normal 0.0-2.0 [facility] Comment on above: Performed By: #### 2 044814, 02416605, 07122951, 7272381 ####[facility] [address] [place] [address] Basophils/Leukocytes Auto (Bld) [Pure # fraction] 0.0 E9/L Normal 0.0-0.2 [facility] Comment on above: Performed By: #### 2 539197, 08253939, 74660073, 2126488 ####[facility] [address] [place] [address] Eosinophils (Bld) [#/Vol] 0.1 E9/L Normal 0.0-0.5 [facility] Comment on above: Performed By: #### 2 308537, 95771420, 97089927, 8135872 ####[facility] [address] [place] [address] Eosinophils/100 WBC (Bld) 2.1 % Normal 0.0-8.0 [facility] Comment on above: Performed By: #### 2 827125, 36296040, 45595472, 4177065 ####[address] [address] Erythrocyte distribution width (RBC) [Ratio] 14.1 % Normal 10.9-14.2 [facility] Comment on above: Performed By: #### 2 061003, 02432146, 93026157, 8533875 ####[address] [address] Hematocrit (Bld) [Volume fraction] 36.0 % Normal 34.0-46.0 [facility] Comment on above: Performed By: #### 2 278344, 31031445, 66924792, 2599638 ####[address] [address] Hemoglobin (Bld) [Mass/Vol] 12.0 g/dL Normal 12.0-16.0 [facility] Comment on above: Performed By: #### 2 954194, 18758084, 78779308, 4280861 ####[address] [address] Lymphocytes (Bld) [#/Vol] 1.0 E9/L Normal 1.0-4.0 [facility] Comment on above: Performed By: #### 2 329302, 26345193, 81721775, 9578830 ####[address] [address] Lymphocytes/100 WBC (Bld) 17.8 % Normal 14.0-50.0 [facility] Comment on above: Performed By: #### 2 273275, 26167722, 01115482, 8003818 ####[address] [address] MCH (RBC) [Entitic mass] 30.0 pg Normal 27.0-34.0 [facility] Comment on above: Performed By: #### 2 170102, 86149839, 41327643, 3563052 ####[address] [address] MCHC (RBC) [Mass/Vol] 33.3 g/dL Normal 31.4-36.0 [facility] Comment on above: Performed By: #### 2 900901, 75061961, 66896215, 6807996 ####[address] [address] MCV (RBC) [Entitic vol] 90.1 fL Normal 80.0-100.0 [facility] Comment on above: Performed By: #### 2 582984, 95213850, 45071624, 1154737 ####[address] Monocytes (Bld) [#/Vol] 0.5 E9/L Normal 0.2-1.0 [facility] Comment on above: Performed By: #### 2 192049, 26980842, 79875120, 5935353 ####[address] [address] Neutrophils (Bld) [#/Vol] 3.8 E9/L Normal 2.0-7.5 [facility] Comment on above: Performed By: #### 2 133843, 98366007, 84835836, 2841941 ####[address] [address] Neutrophils/100 WBC (Bld) 70.8 % Normal 36.0-75.0 [facility] Comment on above: Performed By: #### 2 569026, 24517452, 22058969, 9314459 ####[address] [address] Platelet 204.0 E9/L Normal 150.0-500. 0 [facility] Comment on above: Performed By: #### 2 527260, 37442691, 49338487, 7711405 ####[address] [address] Platelet mean volume (Bld) [Entitic vol] 7.1 fL Normal 6.4-10.8 [facility] Comment on above: Performed By: #### 2 367242, 80308932, 55922690, 0262566 ####[facility] [address] [place] [address] RBC (Bld) [#/Vol] 4.0 E12/L Low 4.3-5.9 [facility] Comment on above: Performed By: #### 2 105926, 83826261, 60301271, 0764881 ####[facility] [address] [place] [address] WBC corrected for nucl RBC Auto (Bld) [#/Vol] 5.4 E9/L Normal 4.0-11.0 [facility] Comment on above: Performed By: #### 2 730877, 52972194, 85267836, 5972118 ####[facility] [address] [place] [address] CHEMISTRYOrdered By: SYSTEM SYSTEM on 06-08-2023 Troponin 5.80 pg/mL Low 10.10 - 27.10 pg/mL [facility] Comment on above: Interpretive Data: T he 95% CI (Confidence Interval) PPV (Positive Predictive Value) for myocardial infarction in females is 38 pg/mL, in males 51 pg/mL. The results should be used in conjunction with clinical conditions of myocardial infarction. (Access High Sensitivity Troponin I Instructions For Use, Raegan Nolan, October 2017) Albumin [Mass/Vol] 4.1 g/dL Normal 3.3 - 5.0 gm/dL [facility] Albumin/Globulin [Mass ratio] 1.4 {ratio} Normal 1.1 - 2.2 [facility] ALP [Catalytic activity/Vol] 49 [iU]/d Normal 21 - 98 Int._Unit/ L [facility] ALT No additional P-5'-P [Catalytic activity/Vol] 11 [iU]/d Normal 6 - 46 Int._Unit/ L [facility] Anion gap [Moles/Vol] 9 mmol/L Normal 6 - 16 mEq/L [facility] AST [Catalytic activity/Vol] 19 [iU]/d Normal 5 - 43 Int._Unit/ L [facility] Bilirubin [Mass/Vol] 0.6 mg/dL Normal 0.0 - 1 .1 mg/dL [facility] Calcium [Mass/Vol] 9.4 mg/dL Normal 8.9 - 11. 1 mg/dL [facility] Chloride [Moles/Vol] 97 mmol/L Low 101 - 1 11 mmol/L [facility] CO2 [Moles/Vol] 32 mmol/L High 21 - 31 mmol/L [facility] Creatinine [Mass/Vol] 0.9 mg/dL Normal 0.5 - 1.3 mg/dL [facility] eGFR 63 mL/min/1.73 m2 Normal >=59mL/min /1.73 m2 [facility] Globulin (S) [Mass/Vol] 3.0 g/dL Normal 1.4 - 4.0 gm/dL [facility] Glucose [Mass/Vol] 99 mg/dL Normal 55 - 199 mg/dL [facility] Potassium [Moles/Vol] 3.7 mmol/L Normal 3.5 - 5.3 mmol/L [facility] Chem Protein [Mass/Vol] 7.1 g/dL Normal 6.0 - 7.8 gm/dL [facility] Sodium [Moles/Vol] 134 mmol/L Low 135 - 145 mmol/L [facility] Chem Troponin 5.90 pg/mL Low 10.10 - 27.10 pg/mL [facility] Comment on above: Interpretive Data: T he 95% CI (Confidence Interval) PPV (Positive Predictive Value) for myocardial infarction in females is 38 pg/mL, in males 51 pg/mL. The results should be used in conjunction with clinical conditions of myocardial infarction. (Access High Sensitivity Troponin I Instructions For Use, Raegan Gregory, October 2017) Urea nitrogen [Mass/Vol] 20 mg/dL Normal 5 - 21 mg/dL [facility] Urea nitrogen/Creatinine [Mass ratio] 22 mg/mg High 10 - 20 [facility] CMPon 06-08-2023 Albumin [Mass/Vol] 4.1 g/dL Normal 3.3-5.0 [facility] Comment on above: Performed By: #### 2 390546, 58867949, 53117609, 5920467 ####[facility] [address] [place] [address] Albumin/Globulin (S) [Mass conc ratio] 1.4 Normal 1.1-2.2 [facility] Comment on above: Performed By: #### 2 431360, 24587327, 30813090, 0306071 ####[facility] [address] [place] [address] ALP [Catalytic activity/Vol] 49 Int._Unit/L Normal 21-98 [facility] Comment on above: Performed By: #### 2 431348, 34457848, 44676774, 6064618 ####[facility] [address] [place] [address] ALT No additional P-5'-P [Catalytic activity/Vol] 11 Int._Unit/L Normal 6-46 [facility] Comment on above: Performed By: #### 2 753272, 38430277, 68305061, 6481303 ####[facility] [address] [place] [address] Anion gap [Moles/Vol] 9 mmol/L Normal 6-16 [facility] Comment on above: Performed By: #### 2 909980, 69730436, 95571100, 4823083 ####[facility] [address] [place] [address] AST [Catalytic activity/Vol] 19 Int._Unit/L Normal 5-43 [facility] Comment on above: Performed By: #### 2 068859, 60069317, 43071286, 9296678 ####[facility] [address] [place] [address] Bilirubin [Mass/Vol] 0.6 mg/dL Normal 0.0-1.1 [facility] Comment on above: Performed By: #### 2 485157, 76735771, 02874685, 9118958 ####[facility] [address] [place] [address] Calcium [Mass/Vol] 9.4 mg/dL Normal 8.9-11.1 [facility] Comment on above: Performed By: #### 2 095194, 55406440, 68513150, 6971050 ####[facility] [address] [place] [address] Chloride [Moles/Vol] 97 mmol/L Low 101-111 [facility] Comment on above: Performed By: #### 2 [id number], [id number], [id number], [id number] ####[facility] [address] [place] [address] CO2 [Moles/Vol] 32 mmol/L High 21-31 [facility] Comment on above: Performed By: #### 2 777588, [id number], [id number], [id number] ####[facility] [address] [place] [address] Creatinine [Mass/Vol] 0.9 mg/dL Normal 0.5-1.3 [facility] Comment on above: Performed By: #### 2 869457, [id number], [id number], [id number] ####[facility] [address] [place] [address] Globulin (S) [Mass/Vol] 3.0 g/dL Normal 1.4-4.0 [facility] Comment on above: Performed By: #### 2 607384, [id number], [id number], [id number] ####[facility] [address] [place] [address] Glucose [Mass/Vol] 99 mg/dL Normal 55-199 [facility] Comment on above: Performed By: #### 2 948846, [id number], 88066955, 2369643 ####[facility] [address] [place] [address] Potassium [Moles/Vol] 3.7 mmol/L Normal 3.5-5.3 [facility] Comment on above: Performed By: #### 2 059996, [id number], 05927047, [id number] ####[address] [place] [address] Protein [Mass/Vol] 7.1 g/dL Normal 6.0-7.8 [facility] Comment on above: Performed By: #### 2 492464, 99464243, 37594508, 2127324 ####[facility] [address] [place] [address] Sodium [Moles/Vol] 134 mmol/L Low 135-145 [facility] Comment on above: Performed By: #### 2 094235, [id number], 58264131, 8948276 ####[facility] [address] [place] [address] Urea nitrogen [Mass/Vol] 20 mg/dL Normal 5-21 [facility] Comment on above: Performed By: #### 2 691296, 56673444, 23812603, 1075841 ####[facility] [address] [place] [address] Urea nitrogen/Creatinine [Mass ratio] 22 No Units High 10-20 [facility] Comment on above: Performed By: #### 2 092061, [id number], 09470108, [id number] ####[facility] [address] [place] [address] CT Head or Brain w/o Contras ton 06-08-2023 CT Head or Brain w/o Contrast Normal [facility] Consent for Treatmenton 05-11 Consent for Treatment [id number] Normal [facility] Discharge Instructionson Discharge Instructions [id number]#[id number] Normal [facility] ED Clinical Summaryon 2023 ED Clinical Summary Normal Tien murphy [facility] ED Note-Nursingon 06-08-2023 ED Note-Nursing pt walked to waiting room with assistance from her grandson. grandson driving her home Normal [facility] ED Note-Nursing pt given d/c instruc tions and educated on importance of follow up. pt verbalized understanding of instructions and readiness for d/c. pt called her family for a ride home and is waiting for them to get here to take her home Normal [facility] ED Patient Education Noteon 06-08-2023 ED Patient Education Note Normal [facility] ED Patient Summaryon 024 ED Patient Summary Normal [facility] HEMATOLOGYOrdered By: SYSTEM SYSTEM on 06-08-2023 Basophils/100 WBC (Bld) 0.5 % Normal 0.0 - 2.0 % Remisol Heme Basophils/Leukocytes Auto (Bld) [Pure # fraction] 0.0 E9/L Normal 0.0 - 0.2 E9/L [facility] Eosinophils (Bld) [#/Vol] 0.1 E9/L Normal 0.0 - 0.5 E9/L [facility] Eosinophils/100 WBC (Bld) 2.1 % Normal 0.0 - 8.0 % [facility] Erythrocyte distribution width (RBC) [Ratio] 14.1 % Normal 10.9 - 14.2 % [facility] Hematocrit (Bld) [Volume fraction] 36.0 % Normal 34.0 - 46.0 % [facility] Hemoglobin (Bld) [Mass/Vol] 12.0 g/dL Normal 12.0 - 16.0 gm/dL [facility] Lymphocytes (Bld) [#/Vol] 1.0 E9/L Normal 1.0 - 4.0 E9/L [facility] Lymphocytes/100 WBC (Bld) 17.8 % Normal 14.0 - 50.0 % [facility]e MCH (RBC) [Entitic mass] 30.0 pg Normal 27.0 - 34.0 pg Rem[facility] Heme MCHC (RBC) [Mass/Vol] 33.3 g/dL Normal 31.4 - 36.0 gm/dL [facility] MCV (RBC) [Entitic vol] 90.1 fL Normal 80.0 - 100.0 fL [facility] Monocytes (Bld) [#/Vol] 0.5 E9/L Normal 0.2 - 1.0 E9/L [facility] Monocytes/100 WBC (Bld) 8.8 % Normal 4.0 - 14.0 % [facility] Neutrophils (Bld) [#/Vol] 3.8 E9/L Normal 2.0 - 7.5 E9/L [facility] Neutrophils/100 WBC (Bld) 70.8 % Normal 36.0 - 75.0 % [facility] Platelet 204.0 E9/L Normal 150.0 - 500.0 E9/L [facility] Platelet mean volume (Bld) [Entitic vol] 7.1 fL Normal 6.4 - 10.8 fL [facility] RBC (Bld) [#/Vol] 4.0 E12/L Low 4.3 - 5.9 E12/L [facility] WBC corrected for nucl RBC Auto (Bld) [#/Vol] 5.4 E9/L Normal 4.0 - 11.0 E9/L [facility] Influenza A&B Agon Influenzae A Ag Negative Normal Negative [facility] Comment on above: Performed By: #### 1 [id number], [id number], [id number] ####Enrrique [facility] [address] [place] [address] Influenzae B Ag Negative Normal Negative [facility] Comment on above: Result Comment: Test sensitivity and specificity vary for age group, specimen type, antigen types, and prevalence of disease. Test results must be evaluated in conjunction with other clinical data available to the physician. Individuals who received nasally administered Influenza A vaccine may have positive test results up to 3 days after vaccination. Performed By: #### 1 [id number], [id number], [id number] ####Enrrique [facility] [address] [place] [address] MICRO OTHER TESTSOrdered By: Bettina Bullard on 06-08-2023 Influenzae A Ag Negative (06/08/23 2:48 PM) Normal Negative [facility] Man Sero Influenzae B Ag Negative 2 (06/08/23 2:48 PM) Normal Negative [facility] Comment on above: Interpretive Data: T est sensitivity and specificity vary for age group, specimen type, antigen types, and prevalence of disease. Test results must be evaluated in conjunction with other clinical data available to the physician. Individuals who received nasally administered Influenza A vaccine may have positive test results up to 3 days after vaccination. Rapid COV Int NEG Ctl Pass (06/08/23 2:48 PM) Normal FT [facility] Rapid COV Int POS Ctl Pass (06/08/23 2:48 PM) Normal FT [facility] RSV Ag IA.rapid Ql (Nph) Negative (06/08/23 2:48 PM) Normal Negative [facility] SARS-CoV+SARS-CoV-2 (COVID-19) Ag IA.rapid Ql (Resp) Not Detected 5 (06/08/23 2:48 PM) Normal Not Detected [facility] Comment on above: Interpretive Data: Minoo allen [employer] System for Rapid Detection of SARS-CoV-2 is a chromatographic digital immunoassay intended for the direct and qualitative detection of SARS-CoV-2 nucleocapsid antigens in nasal swabs from individuals who are suspected of COVID-19 by their healthcare provider within the first five days of the onset of symptoms. Negative results should be treated as presumptive, do not rule out SARS-CoV-2 infection and should not be used as the sole basis for treatment or patient management decisions, including infection control decisions. Negative results should be considered in the context of a patient s recent exposures, history and the presence of clinical signs and symptoms consistent with COVID-19, and confirmed with a molecular assay, if necessary, for patient management. For in vitro diagnostic use. In the [place], only for use under an Emergency Use Authorization. In the [place], this test has not been FDA cleared or approved; this test has been authorized by FDA under an EUA for use by authorized laboratories; use by laboratories certified under the CLIA, 42 U.S.C. 263a, that meet requirements to perform moderate, high, or waived complexity tests and at the Point of Care (POC), i.e., in patient care settings operating under a CLIA Certificate of Waiver, Certificate of Compliance, or Certificate of Accreditation. This test has been authorized only for the detection of proteins from SARS-CoV-2, not for any other viruses or pathogens; and, in the [place], this test is only authorized for the duration of the declaration that circumstances exist justifying the authorization of emergency use of in vitro diagnostics for detection and/or diagnosis of the virus that causes COVID-19 under Section 564(b)(1) of the Act, 21 U.S.C. 360bbb-3(b)(1), unless the authorization is terminated or revoked sooner. Pre-Arrival Noteon Pre-Arrival Note Normal [facility] Progress Note-Nurseon 2023 Progress Note-Nurse Patient to CT scan Normal [facility] Rapid COVID Antigen ([facility])on 06-08-2023 Rapid COV Int NEG Ctl Pass Normal Fis her [facility] Comment on above: Performed By: #### 1 [id number], [id number], [id number] ####[facility] [address] [place] [address] Rapid COV Int POS Ctl Pass Normal Fis her [facility] Comment on above: Performed By: #### 1 [id number], [id number], [id number] ####[facility] [address] [place] [address] SARS-CoV+SARS-CoV-2 (COVID-19) Ag IA.rapid Ql (Resp) Not detected Normal Not Detected [facility] Comment on above: Result Comment: The [employer]? System for Rapid Detection of SARS-CoV-2 is a chromatographic digital immunoassay intended for the direct and qualitative detection of SARS-CoV-2 nucleocapsid antigens in nasal swabs from individuals who are suspected of COVID-19 by their healthcare provider within the first five days of the onset of symptoms. Negative results should be treated as presumptive, do not rule out SARS-CoV-2 infection and should not be used as the sole basis for treatment or patient management decisions, including infection control decisions. Negative results should be considered in the context of a patient?s recent exposures, history and the presence of clinical signs and symptoms consistent with COVID-19, and confirmed with a molecular assay, if necessary, for patient management. For in vitro diagnostic use. In the [place], only for use under an Emergency Use Authorization. In the [place], this test has not been FDA cleared or approved; this test has been authorized by FDA under an EUA for use by authorized laboratories; use by laboratories certified under the CLIA, 42 U.S.C. ?263a, that meet requirements to perform moderate, high, or waived complexity tests and at the Point of Care (POC), i.e., in patient care settings operating under a CLIA Certificate of Waiver, Certificate of Compliance, or Certificate of Accreditation.This test has been authorized only for the detection of proteins from SARS-CoV-2, not for any other viruses or pathogens; and, in the [place], this test is only authorized for the duration of the declaration that circumstances exist justifying the authorization of emergency use of in vitro diagnostics for detection and/or diagnosis of the virus that causes COVID-19 under Section 564(b)(1) of the Act, 21 U.S.C. ? 360bbb-3(b)(1), unless the authorization is terminated or revoked sooner. Performed By: #### 1 [id number], [id number], [id number] ####[facility] [address] [place] [address] Resp.syn.virus (Rsv)on 06-07 RSV Ag IA.rapid Ql (Nph) Negative Normal Negative [facility] Comment on above: Performed By: #### 1 [id number], [id number], [id number] ####[facility] [address] [place] [address] Troponin 0 Hr.on 06-08-2023 Troponin 5.90 pg/mL Low 10.10-27.1 0 [facility] Comment on above: Result Comment: The 95% CI (Confidence Interval) PPV (Positive Predictive Value) for myocardial infarction in females is 38 pg/mL, in males 51 pg/mL. The results should be used in conjunction with clinical conditions of myocardial infarction.(Access High Sensitivity Troponin I Instructions For Use, [employer], October 2017) Performed By: #### 2 739200, [id number], 55558429, [id number] ####[facility] [address] [place] [address] Troponin 3 Hr.on 06-08-2023 Troponin 5.80 pg/mL Low 10.10-27.1 0 [facility] Comment on above: Result Comment: The 95% CI (Confidence Interval) PPV (Positive Predictive Value) for myocardial infarction in females is 38 pg/mL, in males 51 pg/mL. The results should be used in conjunction with clinical conditions of myocardial infarction.(Access High Sensitivity Troponin I Instructions For Use, [employer], October 2017) Performed By: #### 1 [id number] ####[facility] [address] [place] [address] UA with Cult Rflxon 06-08-19 24 Color (U) Colorless Abnormal Yellow [facility] Comment on above: Result Comment: Micr oscopic readings are only performed on those samples that meet specific criteria set forth by [facility]. Performed By: #### 4 [id number] ####[address] [address] Glucose (U) [Mass/Vol] Negative Normal Negative [facility] Comment on above: Performed By: #### 4 [id number] ####[address] [address] Ketones Ql (U) Negative Normal Negative [facility] Comment on above: Performed By: #### 4 [id number] ####[address] [address] UA Blood Negative Normal Negative [facility] Comment on above: Performed By: #### 4 [id number] ####[address] [place] [address] UA Clarity Clear Normal Clear [facility] Comment on above: Performed By: #### 4 [id number] ####[address] [place] [address] UA Leuk Est Negative Normal Negative [facility] Comment on above: Performed By: #### 4 [id number] ####[address] [place] [address] UA Nitrite Negative Normal Negative [facility] Comment on above: Performed By: #### 4 [id number] ####[address] [place] [address] UA pH 6.5 Invalid Interpretation Code 5.0-9.0 [facility] Comment on above: Performed By: #### 4 [id number] ####[address] [address] UA Protein Negative Normal Negative [facility] Comment on above: Performed By: #### 4 [id number] ####[facility] [address] [place] [address] UA Spec Grav 1.011 Invalid Interpretation Code 1.005-1.03 0 [facility] Comment on above: Performed By: #### 4 [id number] ####[facility] [address] [place] [address] UA Urobilinogen Negative Normal Negative [facility] Comment on above: Performed By: #### 4 [id number] ####[facility] [address] [place] [address] Urobilinogen (U) [Mass/Vol] Negative Normal Negative [facility] Comment on above: Performed By: #### 4 [id number] ####[facility] [address] [place] [address] UA Spec Desc Random Urine Normal [facility] Comment on above: Performed By: #### 4 [id number] ####[facility] [address] [place] [address] URINALYSISOrdered By: SYSTEM SYSTEM on 06-08-2023 Color (U) Colorless 1 *ABN* (06/08/23 7:17 PM) Invalid Interpretation Code Yellow [facility] Auto SS Comment on above: Interpretive Data: M icroscopic readings are only performed on those samples that meet specific criteria set forth by [facility]. Glucose (U) [Mass/Vol] Negative Normal Negat ivemg /dL [facility] UA Auto SS Ketones Ql (U) Negative Normal Negativemg /dL [facility] UA Auto SS UA Blood Negative Normal Negativemg /dL [facility] UA Auto SS UA Clarity Clear (06/08/23 7:17 PM) Normal Clear FT UA Auto SS UA Leuk Est Negative Normal NegativeLe u/uL FT UA Auto SS UA Nitrite Negative Normal Negativemg /dL [facility] UA Auto SS UA pH 6.5 *NA* (06/08/23 7:17 PM) Invalid Interpretation Code 5.0 - 9.0 [facility] UA Auto SS UA Protein Negative Normal Negativemg /dL [facility] UA Auto SS UA Spec Grav 1.011 *NA* (06/08/23 7:17 PM) Invalid Interpretation Code 1.005 - 1.030 [facility] UA Auto SS UA Urobilinogen Negative Normal Negativemg /dL [facility] UA Auto SS Urobilinogen (U) [Mass/Vol] Negative Normal Negativemg /dL [facility] UA Auto SS URINALYSISOrdered By: Brandon Jara on 06-08-2023 UA Spec Desc Random Urine (06/08/23 7:17 PM) Normal [facility] UA Auto SS Work Phone: XR Chest Single Viewon 06-07 XR Chest Single View Normal Fish [facility] eGFRon 06-08-2023 eGFR 63 mL/min/1.73 m2 Normal >=59 [facility] Comment on above: Order Comment: Order added by Discern Expert. Performed By: #### 2 [id number], [id number], [id number], [id number] ####[facility] [address] [place] [address] [facility] CARLY MARCELINO ([id number]) 1940 [facility] Date Time Provider Department 05/28/23 KERRY FARR NECVS8 During your visit today, we recorded the following information about you: Rola Park 05/28/2023 4:03 PM Signed CV PHONE Name of caller : Carly Relationship to patient : Self If not self Will need patient permission to release results or disclose health information with called documented in . Patient identified by Name and Date of . ( Carly Marcelino, 1940). Yes Number to return call [phone] Reason for Call: Results: Results Calling office requesting result of CT scan test, completed on 05/28/23. Please call patient back at [phone] Patient missed follow up appt scheduled for today 05/28/23.Please call pt to discuss results and whether or not patient is able to fly. . Sandy Ho 05/29/2023 8:13 AM Addendum OSH imaging/records received from Enrrique Romero: May 28, 2023 -05.28.23 CT Imaging Report available within imaging electronically. Rola Park 05/29/2023 11:59 AM Signed Patient calling to discuss CT results. Please call [phone] Dinah Lopez, CARLOS 05/29/2023 1:30 PM Signed Spoke with pt, per [facility] ct scan is fine, blood is resolve, Has no issue with pt flying. Pt to schedule f/u when returns from [place]. Pt verbalized understanding. Allergies As of Date: 05/28/2023 Noted Allergy Reaction HYDANTOINS 05/01/2003 10 - Anaphylaxis Comments: throat swells ,hives PHENYTOIN 11/06/2012 10 - Anaphylaxis ADHESIVE TAPE (ROSINS) 09/11/2011 2 - Rash CARBAMAZEPINE 05/01/2003 9 - Itching Comments: Tegretal caused itching DIVALPROEX SODIUM 12/14/2018 5 - Intolerance Comments: Fine motor tremors DULERA (MOMETASONE-FORMOTEROL) 09/15/2014 5 - Intolerance Comments: Falls VALPROIC ACID ANALOGUES 05/01/2003 Comments: tremors AMLODIPINE 11/06/2012 16 - Unknown Comments: intolterance LABETALOL 11/06/2012 16 - Unknown Comments: Intolerance NIFEDIPINE 11/06/2012 16 - Unknown Comments: intolerance VALPROIC ACID 11/06/2012 5 - Intolerance Date Reviewed: 05/25/2023 Reviewed by: Tiff Draper OD - Fully Assessed Reason for Visit: Results [95] Prescriptions as of 05/29/2023 - albuterol HFA (PROVENTIL HFA, VENTOLIN HFA) 90 mcg/actuation inhaler Inhale 2 Puffs as instructed every 4 hours as needed. - ALPRAZolam (XANAX) 0.25 mg tablet Take 1 tablet by mouth every 12 hours. - atorvastatin (LIPITOR) 80 mg tablet Take 80 mg by mouth. - clopidogrel (PLAVIX) 75 mg tablet Take 75 mg by mouth. - DOCOSAHEXAENOIC ACID ORAL Take 1 capsule by mouth once daily. - ferrous sulfate 325 mg (65 mg iron) tablet Take 325 mg by mouth. - metoprolol succinate ER (TOPROL XL) 50 mg 24 hr tablet - nitroglycerin sublingual (NITROQUICK) 0.4 mg SL tablet DISSOLVE 1 TABLET UNDER THE TONGUE NEEDED FOR CHEST PAIN- MAY REPEAT EVERY 5 MINUTES IF NEEDED ( MAX 3 DOSES.- IF NO RELIEF CALL 911) - gabapentin (NEURONTIN) 400 mg capsule Take 300 mg by mouth. - acetaminophen (TYLENOL) 325 mg tablet 2 tablets by ORAL/FEEDING TUBE route every 4 hours as needed for pain. - aspirin 81 mg chewable tablet 1 tablet by ORAL/FEEDING TUBE route once daily. - levETIRAcetam (KEPPRA) 500 mg tablet Take 1 tablet by mouth two times a day. - metoprolol tartrate, short acting, (LOPRESSOR) 25 mg tablet Take 1/2 tablet by mouth every 12 hours. - pravastatin (PRAVACHOL) 40 mg tablet Take 1 tablet by mouth daily at bedtime. - triamterene-hydroCHLOROthi azide (DYAZIDE) 37.5-25 mg per capsule Take 1 capsule by mouth once daily. - montelukast (SINGULAIR) 10 mg tablet Take 10 mg by mouth once daily. - omega 6-uaj-nqp-fish oil (FISH OIL) 100-160-1,000 mg cap Take by mouth. - Walker misc front wheeled walker dx left knee hematoma, Print Requisition, Compound - multivitamin (MULTIPLE VITAMINS ORAL) Refill(s) 0 - baclofen (LIORESAL) 10 mg tablet Baclofen Baclofen Active 5 MG Oral Daily at bedtime August 01, 2017 3:16pm 08-01-2017 [facility] ([id number]) - cetirizine 10 mg ODT Cetirizine Cetirizine Active 10 MG Oral Daily August 01, 2017 3:16pm - [facility] ([id number]) - Cholecalciferol, Vitamin D3, (VITAMIN D-3) 2,000 unit cap Take by mouth once daily. - docusate sodium (COLACE) 100 mg capsule Take 100 mg by mouth once daily. as needed - magnesium oxide 400 mg cap Take by mouth once daily. - B Complex Vitamins capsule Take 1 capsule by mouth once daily. - losartan (COZAAR) 100 mg tablet Take 100 mg by mouth once daily. - gabapentin (NEURONTIN) 300 mg capsule Take 300 mg by mouth three times daily. Problem List As Of Date 05/28/2023 Noted Resolved ROTATOR CUFF RUPTURE [M75.120] 05/01/2003 Fitting and adjustment of orthopedic device [Z4*09/20/2011 ANKLE INSTABILITY [M24.873, M24.876] 01/01/2012 DERANGEMENT ANKLE/MIRA (more content not included)... Normal [facility] CT Head or Brain w/o Contras ton 05-28-2023 CT Head or Brain w/o Contrast Normal [facility] Consent for Treatmenton 05-10 Consent for Treatment [id number]#1.00TIFF [facility] Physician Orderon 05-28-2023 Physician Order [id number]#1.00TIFF [facility] Physician Order [id number]#1.00TIFF [facility] Physician Order [id number]#1.00TIFF Normal [facility] ALLIED HEALTHon 05-07-2023 ALLIED HEALTH HNO ID: [id number] Author: CHIARA SANCHEZ Chaplain Service: Healing Service Author Type: Type: Allied Health Filed: 05/07/2023 13:57 Note Text: HEALING SERVICES THERAPY NOTE Service date: 05/07/23 Service time: 1130 Visit with: Patient Purpose of session: Anxiety;Emotional support;Relaxation Urgency of visit: Routine Type of visit: Introductory Visit Intro/Patient Not Available: Patient introduced to Healing Services available to them. All questions answered and materials left at bedside. Re-visit from Healing Services team? : If requested Referred by: Physician Reason for Referral: Emotional Support;Received Serious Diagnosis Patient Pattern Awareness - Practical: Finances;Housing;Work/Scho ol;Discharge Plans Patient Pattern Awareness - Family/Community: Significant Other;Children/Grandchildr en;Parents/Family;Spiritua l Community;Friends Patient Pattern Awareness - Emotional: Blessed;Calm;Communication ;Grief;Hopeful;Joyful;Peac eful What have you done that has worked to make you feel better?: Aromatherapy;Breathing exercises;Spiritual practice/Prayer/Meditation ;Talking with someone Home Sleep Pattern: [facility] Sleep Pattern: Interrupted SELF-REPORTED PATIENT EXPERIENCE SCALE Mood Relaxed Pain 0 = Best 0 = Relaxed 0 = No Pain 10 = Worst 10 = Stressed/Tense 10 = Worst Pain Before: 4 Before: 2 Before: Location: After: 2 After: 3 After: Services performed: Emotional support;Coaching;Therapeut ic presence;Aromatherapy [place] goal(s) of visit: Create healing environment for patient to receive;Decrease anxiety and/or fear;Decrease pain;Establish and build rapport;Increase and promote relaxation;Introduce Healing Services;Provide emotional support;Provide spiritual support Patient education: Education provided;Written materials provided;All questions answered Patient selected interventions: Spiritual care;Supportive care;Mind/body tools;Relaxation breathing exercises Mind/body tools: Breathing techniques;Guided imagery;Prayer Spiritual care: Educational/inspirational materials requested;See Spiritual Care note;Prayer Supportive care: Emotional support;Spiritual support;Therapeutic presence Therapeutic presence: Emotional;Spiritual Intervention notes: : Encouraged adherence to treatment plan, Encouraged assertiveness, Encouraged focus on present, Encouraged self-care, Facilitated grief process, Informed patient of spiritual care resources available, and Provided anticipatory guidance Does the patient feel the mutual goal(s) was met?: Yes, the goal(s) was met. Revisit from Healing Services Team?: If requested SIGNATURE: Chaplain Navi PATIENT NAME: Carly Marcelino DATE: May 07, 2023 TIME: 1:54 PM CONTACT #: [id number] Normal [facility] Activated partial thrombopla stin time (aPTT) in platelet poor plasma by coagulation aon 05-07-2023 aPTT Coag (PPP) [Time] 28.7 s 23.0-32.4 [facility] Basophils Auto (Bld) [#/Vol] on 05-07-2023 Basophils (Bld) [#/Vol] 0.03 10*3/uL <0.11 [facility] Basophils/100 WBC Auto (Bld) on 05-07-2023 Basophils/100 WBC (Bld) 0.4 % [facility] Blood manual differential co mment interpretation narrativeon 05-07-2023 Manual differential comment Girma (Bld) [Interp] Auto [facility] CASE MANAGEMon 05-07-2023 CASE MANAGEM HNO ID: [id number] Author: ?, ?, ? Service: ? Author Type: ? Type: Care Mgt Progress Note Filed: 05/07/2023 13:04 Note Text: CARE MANAGEMENT PROGRESS NOTE SERVICE DATE: 05/07/2023 SERVICE TIME: 1:04 PM LOS: 4 days IMM Follow Up Copy Given: Yes Copy given to:: Patient Method: In Person SIGNATURE: Stacey Palencia CMA PATIENT NAME: Carly Marcelino DATE: May 07, 2023 TIME: 1:04 PM PAGER/CONTACT #: [phone] [facility] CASE MANAGEM HNO ID: [id number] Author: BHAVYA BANUELOS RN Service: ? Author Type: Registered Nurse Type: Care Mgt Progress Note Filed: 05/07/2023 12:24 Note Text: CARE MANAGEMENT DISCHARGE NOTE SERVICE DATE: May 07, 2023 SERVICE TIME: 12:22 PM Admission Date: 05/03/2023 LOS: 4 days Discharge Arrangement Discharge Arrangement: Home with Self Care Caregiver Assessment Caregiver is ready, willing and able to meet the patient's needs as recommended by the inter-professional team: No Caregiver needed Transportation Arrangements Transportation Arrangements: Car Date of Trip: 05/07/23 Destination: [address] [place] [address] Handoff Communication: Handoff to: Primary Care Physician Primary Care Physician Name/Phone: Hardeep Mckenzie DO PCP [phone] Additional Information: N/A Patient d/c ready to home with no skilled needs identified. Patient and bedside RN aware of plan. Family to transport patient home via private auto. SIGNATURE: Bhavya Banuelos RN PATIENT NAME: Carly Marcelino DATE: May 07, 2023 TIME: 12:22 PM CONTACT #: [id number] [facility] CASE MGT INIT ASSESon 2023 CASE MGT INIT ASSES HNO ID: [id number] Author: BHAVYA BANUELOS RN Service: ? Author Type: Registered Nurse Type: Care Mgt Initial Assessment Filed: 05/07/2023 12:09 Note Text: CARE MANAGEMENT: ASSESSMENT AND DISCHARGE PLAN SERVICE DATE: May 07, 2023 SERVICE TIME: 12:08 PM PCP: Hardeep Mckenzie DO Primary Contact: Extended Emergency Contact Information Primary Emergency Contact: Hebert Alvarez Relation: Daughter Secondary Emergency Contact: Yan Rey Relation: Brother Admission Status: Inpatient Insurance Provider: MEDICARE A AND B Discharge Planning requested by: Potential Transition Plans Advance Directives Current Advance Directive: Health Care Power of Plunger Scoop Operator In Chart: Yes Up To Date and Valid: Yes Current Living Arrangements and Support Lives with: Alone (Pt states she can move in with daughter when she can no longer live alone) Type of Residence: Private Residence (House) Support: Children, Friends/neighbors, Family members Current Services/Equipment Current Post-Acute Service(s): DME Current DME Type: Standard walker, Other: See Comment (shower bars) Discharge Planning Patient Goal(s): Independent living, Be able to go home, General wellness [place] of Choice Explained: [place] of Choice Given: No Reason Not Given: No placements necessary Transport at Discharge: Car Needs Prior to Discharge: Needs Prior to Discharge: To Be Determined Post-Acute Discharge Plan: TBD This patient has been screened for Care Management Transitional Planning Services. At this time, it does not appear this patient will require transition planning services. Should this change, and the patient require transition planning services during this admission, please contact Case Management. SIGNATURE: Bhavya Banuelos RN PATIENT NAME: Carly Marcelino DATE: May 07, 2023 TIME: 12:08 PM CONTACT #: [id number] Normal [facility] CBC W Auto Differential pane l (Bld)on 05-07-2023 Basophils (Bld) [#/Vol] 0.03 10*3/uL Normal <0.11 [facility] Comment on above: Order Comment: Speci men Type: BLOOD SPECIMENOrdering Facility: [facility] Address: [address] [place] [address] Performed By: #### 5 7021-8 ####[facility] LABCLIA [id number] [place] [address] [place] Basophils/100 WBC (Bld) 0.4 % Normal [facility] Comment on above: Order Comment: Speci men Type: BLOOD SPECIMENOrdering Facility: [facility] Address: [address] [place] [address] Performed By: #### 5 7021-8 ####[facility] LABCLIA [id number] [place] [address] [place] Differential cell count method Nom (Bld) Auto Normal [facility] Comment on above: Order Comment: Speci men Type: BLOOD SPECIMENOrdering Facility: [facility] Address: [address] [place] [address] Performed By: #### 5 7021-8 ####[facility] LABCLIA [id number] [place] [address] [place] Eosinophils (Bld) [#/Vol] 0.13 10*3/uL Normal <0.46 [facility] Comment on above: Order Comment: Speci men Type: BLOOD SPECIMENOrdering Facility: [facility] Address: [address] [place] [address] Performed By: #### 5 7021-8 ####[facility] LABCLIA [id number] [place] [address] [place] Eosinophils/100 WBC (Bld) 1.8 % Normal [facility] Comment on above: Order Comment: Speci men Type: BLOOD SPECIMENOrdering Facility: [facility] Address: [address] [place] [address] Performed By: #### 5 7021-8 ####[facility] LABCLIA [id number] [place] [address] [place] Erythrocyte distribution width (RBC) [Ratio] 14.0 % Normal 11.5-15.0 [facility] Comment on above: Order Comment: Speci men Type: BLOOD SPECIMENOrdering Facility: [facility] Address: [address] [place] [address] Performed By: #### 5 7021-8 ####[facility] LABCLIA [id number] [place] [address] [place] Hematocrit (Bld) [Volume fraction] 37.9 % Normal 36.0-46.0 [facility] Comment on above: Order Comment: Speci men Type: BLOOD SPECIMENOrdering Facility: [facility] Address: [address] [place] [address] Performed By: #### 5 7021-8 ####[facility] LABCLIA [id number] [place] [address] [place] Hemoglobin (Bld) [Mass/Vol] 12.4 g/dL Normal 11.5-15.5 [facility] Comment on above: Order Comment: Speci men Type: BLOOD SPECIMENOrdering Facility: [facility] Address: [address] [place] [address] Performed By: #### 5 7021-8 ####[facility] LABCLIA [id number] [place] [address] [place] Immature granulocytes (Bld) [#/Vol] 10*3/uL Normal <0.10 [facility] Comment on above: Order Comment: Speci men Type: BLOOD SPECIMENOrdering Facility: [facility] Address: [address] [place] [address] Performed By: #### 5 7021-8 ####[facility] LABCLIA [id number] [place] [address] [place] Immature granulocytes/100 WBC (Bld) 0.3 % Normal [facility] Comment on above: Order Comment: Speci men Type: BLOOD SPECIMENOrdering Facility: [facility] Address: [address] [place] [address] Performed By: #### 5 7021-8 ####[facility] LABCLIA [id number] [place] [address] [place] Lymphocytes (Bld) [#/Vol] 1.01 10*3/uL Normal 1.00-4.00 [facility] Comment on above: Order Comment: Speci men Type: BLOOD SPECIMENOrdering Facility: [facility] Address: [address] [place] [address] Performed By: #### 5 7021-8 ####[facility] LABCLIA [id number] [place] [address] [place] Lymphocytes/100 WBC (Bld) 14.2 % Normal [facility] Comment on above: Order Comment: Speci men Type: BLOOD SPECIMENOrdering Facility: [facility] Address: [address] [place] [address] Performed By: #### 5 7021-8 ####[facility] LABCLIA [id number] [place] [address] [place] MCH (RBC) [Entitic mass] 29.9 pg Normal 26.0-34.0 [facility] Comment on above: Order Comment: Speci men Type: BLOOD SPECIMENOrdering Facility: [facility] Address: [address] [place] [address] Performed By: #### 5 7021-8 ####[facility] LABCLIA [id number] [place] [address] [place] MCHC (RBC) [Mass/Vol] 32.7 g/dL Normal 30.5-36.0 [facility] Comment on above: Order Comment: Speci men Type: BLOOD SPECIMENOrdering Facility: [facility] Address: [address] [place] [address] Performed By: #### 5 7021-8 ####[facility]CLIA [id number] [place] [address] [place] MCV (RBC) [Entitic vol] 91.3 fL Normal 80.0-100.0 [facility] Comment on above: Order Comment: Speci men Type: BLOOD SPECIMENOrdering Facility: [facility] Address: [address] [place] [address] Performed By: #### 5 7021-8 ####[facility] LABCLIA [id number] [place] [address] [place] Monocytes (Bld) [#/Vol] 0.64 10*3/uL Normal <0.87 [facility] Comment on above: Order Comment: Speci men Type: BLOOD SPECIMENOrdering Facility: [facility] Address: [address] [place] [address] Performed By: #### 5 7021-8 ####[facility] LABCLIA [id number] [place] [address] [place] Monocytes/100 WBC (Bld) 9.0 % Normal [facility] Comment on above: Order Comment: Speci men Type: BLOOD SPECIMENOrdering Facility: [facility] Address: [address] [place] [address] Performed By: #### 5 7021-8 ####[facility] LABCLIA [id number] [place] [address] [place] Neutrophils (Bld) [#/Vol] 5.30 10*3/uL Normal 1.45-7.50 [facility] Comment on above: Order Comment: Speci men Type: BLOOD SPECIMENOrdering Facility: [facility] Address: [address] [place] [address] Performed By: #### 5 7021-8 ####[facility] LABCLIA [id number] [place] [address] [place] Neutrophils/100 WBC (Bld) 74.3 % Normal [facility] Comment on above: Order Comment: Speci men Type: BLOOD SPECIMENOrdering Facility: [facility] Address: [address] [place] [address] Performed By: #### 5 7021-8 ####[facility]CLIA [id number] [place] [address] [place] Nucleated RBC (Bld) [#/Vol] 10*3/uL Normal <0.01 [facility] Comment on above: Order Comment: Speci men Type: BLOOD SPECIMENOrdering Facility: [facility] Address: [address] [place] [address] Performed By: #### 5 7021-8 ####[facility] LABCLIA [id number] [place] [address] [place] Nucleated RBC/100 WBC (Bld) [Ratio] 0.0 /100 WBC Normal [facility] Comment on above: Order Comment: Speci men Type: BLOOD SPECIMENOrdering Facility: [facility] Address: [address] [place] [address] Performed By: #### 5 7021-8 ####[facility] LABIA [id number] [place] [address] [place] Platelet mean volume (Bld) [Entitic vol] 9.7 fL Normal 9.0-12.7 [facility] Comment on above: Order Comment: Speci men Type: BLOOD SPECIMENOrdering Facility: [facility] Address: [address] [place] [address] Performed By: #### 5 7021-8 ####[facility] LABIA [id number] [place] [address] [place] Platelets (Bld) [#/Vol] 184 10*3/uL Normal 150-400 [facility] Comment on above: Order Comment: Speci men Type: BLOOD SPECIMENOrdering Facility: [facility] Address: [address] [place] [address] Performed By: #### 5 7021-8 ####[facility] LABCLIA [id number] [place] [address] [place] RBC (Bld) [#/Vol] 4.15 10*6/uL Normal 3.90-5.20 [facility] Comment on above: Order Comment: Speci men Type: BLOOD SPECIMENOrdering Facility: [facility] Address: [address] [place] [address] Performed By: #### 5 7021-8 ####[facility] LABCLIA [id number] [place] [address] [place] WBC (Bld) [#/Vol] 7.13 10*3/uL Normal 3.70-11.00 [facility] Comment on above: Order Comment: Speci men Type: BLOOD SPECIMENOrdering Facility: [facility] Address: [address] [place] [address] Performed By: #### 5 7021-8 ####[facility] LABCLIA [id number] [address] [place] CNDSon 05-07-2023 CNDS HNO ID: [id number] Author: ROCIO MARINELLI PA-C Service: Neurosurgery Author Type: Physician Net Sorter Type: Discharge Summary Filed: 05/07/2023 12:49 Note Text: -- Attestation signed by Key Gracia MD at 05/07/2023 1:58 PM Staff Addendum: Agree with above. Key Gracia MD Neurosurgery May 07, 2023 1:58 PM -- DISCHARGE SUMMARY CEREBROVASCULAR PATIENT NAME: Carly Marcelino ADMISSION DATE: 05/03/2023 DISCHARGE DATE: 05/07/2023 ATTENDING: Key Gracia MD Code Status: Full Code PCP: Hardeep Mckenzie DO Highest Readmission Risk Score: 15 The 30 day readmissions risk score is derived from an internally validated risk model which evaluates patient level characteristics, utilization history, medication orders and lab results up until the day of discharge. Patients with a score of 40 or above are considered highest risk for readmission. Specific patient level drivers will be listed at the bottom of the summary. DIAGNOSIS: Principal Problem: SAH (subarachnoid hemorrhage) (HCC) (POA: Yes) Active Problems: DVT (deep venous thrombosis) (HCC) (POA: Unknown) Seizure (HCC) (POA: Yes) Primary hypertension (POA: Unknown) Coronary artery disease involving [place] coronary artery of [place] heart without angina pectoris (POA: Unknown) Mixed hyperlipidemia (POA: Unknown) Sciatica of right side (POA: Unknown) Uncomplicated asthma (POA: Unknown) IVANA (iron deficiency anemia) (POA: Unknown) Cerebral amyloid angiopathy (HCC) (HCC) (POA: Unknown) History of DVT (deep vein thrombosis) (POA: Unknown) Lymphedema (POA: Unknown) Cerebral amyloid angiopathy (CODE) (POA: Unknown) Anticoagulation management encounter (POA: Unknown) Resolved Problems: * No resolved hospital problems. * Transitions of Care Critical Issues: NEW BASELINE FOR PATIENT: intact IMAGING FOLLOW-UP: CT brain in 4 weeks LAB MONITORING NEEDED: NA SPECIALIST FOLLOW-UP: NSGY in 4 weeks, stroke neurology in 2 weeks, PASS clinic [facility] MEDICATION CHANGES: see med list PROCEDURES SCHEDULED: NA LABS AND PROCEDURES PENDING AT DISCHARGE: No pending results. HOSPITAL COURSE: The patient was transferred from an outside hospital to the [facility] with right frontal cortical SAH (eliquis reversed with FEIBA). 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 Neurology was consulted and after discussion with vascular medicine the decision was made to continue patient off anticoagulation and start ASA 81. Patient was monitored with EEG, which showed no seizures but was significant for PLEDS. Therefore, patient was continued on keppra with plan for PASS clinic follow up. Patient was fitted with fitted with sequential compression devices and used Heparin for DVT prophylaxis. The patient was discharged on 05/07/2023 in stable condition. Complete and comprehensive discharge instructions were provided to the patient as well as necessary prescriptions. The patient had no further questions and was advised to call with any questions, concerns, or problems. Patient's pain was well controlled with Oral Pain Medications. Physical Therapy was started on 05/04/2023. Patient progressed satisfactorily through physical therapy until discharge. Based upon the appropriate milestones the patient met during the hospital course, Physical Therapy recommended patient be discharged to [facility]- discharged home. Patient was hemodynamically stable postoperatively. OPERATIONS DURING HOSPITALIZATION: None PROCEDURES DURING HOSPITALIZATION: No procedures performed Initial NIHSS Score: 0 Stroke Mechanism: Stroke Risk Factors: Hypertension Y Coronary Artery Disease NA Diabetes NA Obesity NA Dyslipidemia NA Tobacco Use (Please Update Smoking History) NA Stroke NA Intracranial Aneurysm NA Body Mass Index (BMI) BMI: 30.01 Total Cholesterol (at time of admission) Total Cholesterol, Nonfasting 125 05/03/2023 HDL (at time of admission) HDL Cholesterol, Nonfasting 40 05/03/2023 LDL (at time of admission) LDL Cholesterol, Nonfasting 58 05/03/2023 HbA1c Hemoglobin A1C (%) Date Value 05/03/2023 4.9 Tests/Procedures Performed: MRI/MRA brain and C spine 05/04/23: IMPRESSION: Right frontal subarachnoid hemorrhage unchanged from prior CT within the constraints of differing modalities. No cause for subarachnoid hemorrhage is identified on this examination. Patent intracranial circulation. Microvascular ischemic change and volume loss. Cervical spondylosis detailed in the body of the report. Craniocervical junction is the counting reference for the cervical spine exam. CT brain 05/04/23: IMPRESSION: Grossly stable appearance of RIGHT frontal subarachnoid hemorrhage, not significantly changed from (more content not included)... Normal [facility] Comprehensive metabolic 2000 panelon 05-07-2023 Albumin [Mass/Vol] 3.7 g/dL Low 3.9-4.9 [facility] Comment on above: Order Comment: Speci men Type: BLOOD SPECIMENOrdering Facility: [facility] Address: [address] [place] [address] Performed By: #### 1 9123-9, 2777-1, 98366-3 ####[facility] LABCLIA [id number] [id number] [address] [place] ALP [Catalytic activity/Vol] 55 U/L Normal 34-123 [facility] Comment on above: Order Comment: Speci men Type: BLOOD SPECIMENOrdering Facility: [facility] Address: [address] [place] [address] Performed By: #### 1 9123-9, 2771, 41301-3 ####[facility] LABCLIA [id number] [place] [address] [place] ALT [Catalytic activity/Vol] 9 U/L Normal 7-38 [facility] Comment on above: Order Comment: Speci men Type: BLOOD SPECIMENOrdering Facility: [facility] Address: [address] [place] [address] Performed By: #### 1 9123-9, 27709-09, 29006-3 ####[facility] LABCLIA [id number] [place] [address] [place] Anion gap [Moles/Vol] 11 mmol/L Normal 9-18 [facility] Comment on above: Order Comment: Speci men Type: BLOOD SPECIMENOrdering Facility: [facility] Address: [address] [place] [address] Performed By: #### 1 9123-9, 2776-03, 88277-2 ####[facility] LABCLIA [id number] [place] [address] [place] AST [Catalytic activity/Vol] 15 U/L Normal 13-35 [facility] Comment on above: Order Comment: Speci men Type: BLOOD SPECIMENOrdering Facility: [facility] Address: [address] [place] [address] Performed By: #### 1 9123-9, 27709-09, 50796-8 ####[facility] LABCLIA [id number] [place] [address] [place] Bilirubin [Mass/Vol] 0.4 mg/dL Normal 0.2-1.3 [facility] Comment on above: Order Comment: Speci men Type: BLOOD SPECIMENOrdering Facility: [facility] Address: [address] [place] [address] Performed By: #### 1 9123-9, 2776-03, ####[facility] LABCLIA [id number] [facility] [address] [address] [place] Calcium [Mass/Vol] 9.3 mg/dL Normal 8.5-10.2 [facility] Comment on above: Order Comment: Speci men Type: BLOOD SPECIMENOrdering Facility: [facility] Address: [address] [place] [address] Performed By: #### 1 9123-9, 2776-03, ####[facility] LABCLIA [id number] [place] [address] [place] Chloride [Moles/Vol] 99 mmol/L Normal 97-105 [facility] Comment on above: Order Comment: Speci men Type: BLOOD SPECIMENOrdering Facility: [facility] Address: [address] [place] [address] Performed By: #### 1 9123-9, 2776-03, ####[facility] LABCLIA [id number] [place] [id number] [place] CO2 [Moles/Vol] 24 mmol/L Normal 22-30 [facility] Comment on above: Order Comment: Speci men Type: BLOOD SPECIMENOrdering Facility: [facility] Address: [address] [place] [address] Performed By: #### 1 9123-9, 2776-03, ####[facility] LABCLIA [id number] [facility] [address] [address] [place] Creatinine [Mass/Vol] 0.73 mg/dL Normal 0.58-0.96 [facility] Comment on above: Order Comment: Speci men Type: BLOOD SPECIMENOrdering Facility: [facility] Address: [address] [place] [address] Performed By: #### 1 9123-9, 2777-1, 29404-4 ####[facility] LABCLIA [id number] [place] [address] [place] Creatinine and Glomerular filtration rate.predicted panel (S/P/Bld) 82 mL/min/1.73m??? Normal >=60 [facility] Comment on above: Order Comment: Karey torres Type: BLOOD SPECIMENOrdering Facility: [facility] Address: [address] [place] [address] Result Comment: Colleen mated Glomerular Filtration Rate (eGFR) is calculated using the 2020 CKD-EPI creatinine equation. This equation utilizes serum creatinine, sex, and age as parameters. The creatinine assay has traceable calibration to isotope dilution-mass spectrometry. Refer to KDIGO guidelines for clinical interpretation. In patients with unstable renal function, e.g. those with acute kidney injury, the eGFR may not accurately reflect actual GFR. Performed By: #### 1 9123-9, 2777-1, 78063-0 ####[facility] LABCLIA [id number] [place] [id number] [place] Glucose [Mass/Vol] 91 mg/dL Normal 74-99 [facility] Comment on above: Order Comment: Karey torres Type: BLOOD SPECIMENOrdering Facility: [facility] Address: [address] [place] [address] Result Comment: The [place] [employer] (ADA) provides guidance for cutoff values for fasting glucose and random glucose. The ADA defines fasting as no caloric intake for at least 8 hours. Fasting plasma glucose results between 100 to 125 mg/dL indicate increased risk for diabetes (prediabetes). Fasting plasma glucose results greater than or equal to 126 mg/dL meet the criteria for diagnosis of diabetes. In the absence of unequivocal hyperglycemia, results should be confirmed by repeat testing. In a patient with classic symptoms of hyperglycemia or hyperglycemic crisis, random plasma glucose results greater than or equal to 200 mg/dL meet the criteria for diagnosis of diabetes. Reference: Standards of Medical Care in Diabetes 2016, [place] [employer]. Diabetes Care. 2016.39(Suppl 1). Performed By: #### 1 9123-9, 2777-1, 24079-4 ####[facility] LABCLIA [id number] [address] [address] [place] Potassium [Moles/Vol] 4.1 mmol/L Normal 3.7-5.1 [facility] Comment on above: Order Comment: Speci men Type: BLOOD SPECIMENOrdering Facility: [facility] Address: [address] [place] [address] Performed By: #### 1 9123-9, 2777-, 54654-3 ####[facility] LABCLIA [id number] [place] [address] [place] Protein [Mass/Vol] 6.3 g/dL Normal 6.3-8.0 [facility] Comment on above: Order Comment: Speci men Type: BLOOD SPECIMENOrdering Facility: [facility] Address: [address] [place] [address] Performed By: #### 1 9123-9, 27709-09, 60151-4 ####[facility] LABIA [id number] [place] [address] [place] Sodium [Moles/Vol] 134 mmol/L Low 136-144 [facility] Comment on above: Order Comment: Speci men Type: BLOOD SPECIMENOrdering Facility: [facility] Address: [address] [place] [address] Performed By: #### 1 9123-9, 27709-09, 68632-4 ####[facility] LABCLIA [id number] [address] [address] [place] Urea nitrogen [Mass/Vol] 19 mg/dL Normal 7-21 [facility] Comment on above: Order Comment: Speci men Type: BLOOD SPECIMENOrdering Facility: [facility] Address: [address] [place], [place] [id number] Performed By: #### 1 9123-9, 2777-1, 43971-8 ####[facility] LABCLIA [id number] [place] [id number] [place] Eosinophils/100 WBC Auto (Bl d)on 05-07-2023 Eosinophils/100 WBC (Bld) 1.8 % [facility] Erythrocyte distribution wid th Auto (RBC) [Ratio]on 05-07-2023 Erythrocyte distribution width (RBC) [Ratio] 14.0 % 11.5-15.0 [facility] Hematocrit Auto (Bld) [Volum e fraction]on 05-07-2023 Hematocrit (Bld) [Volume fraction] 37.9 % 36.0-46.0 [facility] Hemoglobin [Mass/volume] in Bloodon 05-07-2023 Hemoglobin (Bld) [Mass/Vol] 12.4 g/dL 11.5-15.5 [facility] Laboratory - Chemistry and C hemistry - challengeon 05-07-2023 Albumin [Mass/Vol] 3.7 g/dL 3.9-4.9 [facility] ALP [Catalytic activity/Vol] 55 U/L 34-123 [facility] ALT [Catalytic activity/Vol] 9 U/L 7-38 [facility] AST [Catalytic activity/Vol] 15 U/L 13-35 [facility] Bilirubin [Mass/Vol] 0.4 mg/dL 0.2-1.3 [facility] Calcium [Mass/Vol] 9.3 mg/dL 8.5-10.2 [facility] Chloride [Moles/Vol] 99 mmol/L 97-105 [facility] CO2 [Moles/Vol] 24 mmol/L 22-30 [facility] Creatinine [Mass/Vol] 0.73 mg/dL 0.58-0.96 [facility] Glucose [Mass/Vol] 91 mg/dL 74-99 [facility] Comment on above: The [place] Diabete s Association (ADA) provides guidance for cutoff values for fasting glucose and random glucose. The ADA defines fasting as no caloric intake for at least 8 hours. Fasting plasma glucose results between 100 to 125 mg/dL indicate increased risk for diabetes (prediabetes).Fasting plasma glucose results greater than or equal to 126 mg/dL meet the criteria for diagnosis of diabetes. In the absence of unequivocal hyperglycemia, results should be confirmed by repeat testing. In a patient with classic symptoms of hyperglycemia or hyperglycemic crisis, random plasma glucose results greater than or equal to 200 mg/dL meet the criteria for diagnosis of diabetes.Reference: Standards of Medical Care in Diabetes 2016, [place] [employer]. Diabetes Care. 2016.39(Suppl 1). Magnesium [Mass/Vol] 1.9 mg/dL 1.7-2.3 [facility] Potassium [Moles/Vol] 4.1 mmol/L 3.7-5.1 [facility] Protein [Mass/Vol] 6.3 g/dL 6.3-8.0 [facility] Sodium [Moles/Vol] 134 mmol/L 136-144 [facility] Urea nitrogen [Mass/Vol] 19 mg/dL 7 [facility] Laboratory - Hematology and Cell countson 05-07-2023 Eosinophils (Bld) [#/Vol] 0.13 10*3/uL <0.46 [facility] Immature granulocytes/100 WBC (Bld) 0.3 % [facility] Leukocytes [#/volume] correc jamila for nucleated erythrocytes in Blood by Automated counon 05-07-2023 WBC corrected for nucl RBC Auto (Bld) [#/Vol] 7.13 k/uL 3.70-11.00 [facility] Lymphocytes Auto (Bld) [#/Vo l]on 05-07-2023 Lymphocytes (Bld) [#/Vol] 1.01 10*3/uL 1.00-4.00 [facility] Lymphocytes/100 WBC Auto (Bl d)on 05-07-2023 Lymphocytes/100 WBC (Bld) 14.2 % [facility] MCH Auto (RBC) [Entitic mass ]on 05-07-2023 MCH (RBC) [Entitic mass] 29.9 pg 26.0-34.0 [facility] MCHC Auto (RBC) [Mass/Vol]on 05-07-2023 MCHC (RBC) [Mass/Vol] 32.7 g/dL 30.5-36.0 [facility] MCV Auto (RBC) [Entitic vol] on 05-07-2023 MCV (RBC) [Entitic vol] 91.3 fL 80.0-100.0 [facility] Magnesium SerPl-mCncon 05-07 Magnesium [Mass/Vol] 1.9 mg/dL Normal 1.7-2.3 [facility] Comment on above: Order Comment: Speci men Type: BLOOD SPECIMENOrdering Facility: [facility] Address: [address] [place] [address] Performed By: #### 1 9123-9, 2777-1, 83377-8 ####[facility] LABCLIA [id number] [facility] [place] [place] [address] [place] Monocytes Auto (Bld) [#/Vol] on 05-07-2023 Monocytes (Bld) [#/Vol] 0.64 10*3/uL <0.87 [facility] Monocytes/100 WBC Auto (Bld) on 05-07-2023 Monocytes/100 WBC (Bld) 9.0 % [facility] Neutrophils Auto (Bld) [#/Vo l]on 05-07-2023 Neutrophils (Bld) [#/Vol] 5.30 10*3/uL 1.45-7.50 [facility] Neutrophils/100 WBC Auto (Bl d)on 05-07-2023 Neutrophils/100 WBC (Bld) 74.3 % [facility] No Panel Informationon 05-07 Estimated GFR (CKD-EPI) 82 mL/min/1.73m??? >=60 [facility] Comment on above: Estimated Glomerular Filtration Rate (eGFR) is calculated using the 2020 CKD-EPI creatinine equation. This equation utilizes serum creatinine, sex, and age as parameters. The creatinine assay has traceable calibration to isotope dilution-mass spectrometry. Refer to KDIGO guidelines for clinical interpretation. In patients with unstable renal function, e.g. those with acute kidney injury, the eGFR may not accurately reflect actual GFR. Immature Granulocyte # (Auto) <0.03 k/uL <0.10 [facility] Phosphorus Level 3.2 mg/dL 2.7-4.8 [facility] Nucleated RBC Auto (Bld) [#/ Vol]on 05-07-2023 Nucleated RBC (Bld) [#/Vol] 10*3/uL <0.01 [facility] Nucleated erythrocytes [Pres ence] in Blood by Automated counton 05-07-2023 Nucleated RBC Auto Ql (Bld) 0.0 /100{WBC} [facility] Phosphate SerPl-mCncon 05-07 Phosphate [Mass/Vol] 3.2 mg/dL Normal 2.7-4.8 [facility] Comment on above: Order Comment: Speci men Type: BLOOD SPECIMENOrdering Facility: [facility] Address: [address] [place] [address] Performed By: #### 1 9123-9, 2777-1, 52920-0 ####[facility] LABCLIA [id number] [place] [address] [place] Platelet mean volume Auto (B ld) [Entitic vol]on 05-07-2023 Platelet mean volume (Bld) [Entitic vol] 9.7 fL 9.0-12.7 [facility] Platelets Auto (Bld) [#/Vol] on 05-07-2023 Platelets (Bld) [#/Vol] 184 10*3/uL 150-400 [facility] RBC Auto (Bld) [#/Vol]on RBC (Bld) [#/Vol] 4.15 10*6/uL 3.90-5.20 [facility] Serum or plasma anion gap de terminationon 05-07-2023 Anion gap [Moles/Vol] 11 mmol/L 9-18 [facility] aPTT PPPon 05-07-2023 aPTT Coag (PPP) [Time] 28.7 s Normal 23.0-32.4 Cl [facility] Comment on above: Order Comment: Speci men Type: BLOOD SPECIMENOrdering Facility: [facility] Address: [address] [place] [address] Performed By: #### 1 4979-9 ####[facility] LABCLIA [id number] [place] [address] [place] Activated partial thrombopla stin time (aPTT) in platelet poor plasma by coagulation aon 05-06-2023 aPTT Coag (PPP) [Time] 27.8 s 23.0-32.4 [facility] Basophils Auto (Bld) [#/Vol] on 05-06-2023 Basophils (Bld) [#/Vol] 10*3/uL <0.11 [facility] Basophils/100 WBC Auto (Bld) on 05-06-2023 Basophils/100 WBC (Bld) 0.3 % [facility] Blood manual differential co mment interpretation narrativeon 05-06-2023 Manual differential comment Girma (Bld) [Interp] Auto [facility] CBC W Auto Differential pane l (Bld)on 05-06-2023 Basophils (Bld) [#/Vol] 10*3/uL Normal <0.11 [facility] Comment on above: Order Comment: Speci men Type: BLOOD SPECIMENOrdering Facility: [facility] Address: [address] [place] [address] Performed By: #### 5 7021-8 ####[facility] LABIA [id number] [place] [address] [place] Basophils/100 WBC (Bld) 0.3 % Normal [facility] Comment on above: Order Comment: Speci men Type: BLOOD SPECIMENOrdering Facility: [facility] Address: [address] [place] [address] Performed By: #### 5 7021-8 ####[facility] LABIA [id number] [place] [address] [place] Differential cell count method Nom (Bld) Auto Normal [facility] Comment on above: Order Comment: Speci men Type: BLOOD SPECIMENOrdering Facility: [facility] Address: [address] [place] [address] Performed By: #### 5 7021-8 ####[facility] LABCLIA [id number] [place] [address] [place] Eosinophils (Bld) [#/Vol] 0.10 10*3/uL Normal <0.46 [facility] Comment on above: Order Comment: Speci men Type: BLOOD SPECIMENOrdering Facility: [facility] Address: [address] [place] [address] Performed By: #### 5 7021-8 ####[facility] LABCLIA [id number] [place] [address] [place] Eosinophils/100 WBC (Bld) 1.6 % Normal [facility] Comment on above: Order Comment: Speci men Type: BLOOD SPECIMENOrdering Facility: [facility] Address: [address] [place] [address] Performed By: #### 5 7021-8 ####[facility] LABIA [id number] [place] [address] [place] Erythrocyte distribution width (RBC) [Ratio] 14.0 % Normal 11.5-15.0 [facility] Comment on above: Order Comment: Speci men Type: BLOOD SPECIMENOrdering Facility: [facility] Address: [address] [place] [address] Performed By: #### 5 7021-8 ####[facility] LABIA [id number] [place] [address] [place] Hematocrit (Bld) [Volume fraction] 33.8 % Low 36.0-46.0 [facility] Comment on above: Order Comment: Speci men Type: BLOOD SPECIMENOrdering Facility: [facility] Address: [address] [place] [address] Performed By: #### 5 7021-8 ####[facility] LABCLIA [id number] [place] [address] [place] Hemoglobin (Bld) [Mass/Vol] 11.0 g/dL Low 11.5-15.5 [facility] Comment on above: Order Comment: Speci men Type: BLOOD SPECIMENOrdering Facility: [facility] Address: [address] [place] [address] Performed By: #### 5 7021-8 ####[facility] LABCLIA [id number] [place] [address] [place] Immature granulocytes (Bld) [#/Vol] 10*3/uL Normal <0.10 [facility] Comment on above: Order Comment: Speci men Type: BLOOD SPECIMENOrdering Facility: [facility] Address: [address] [place] [address] Performed By: #### 5 7021-8 ####[facility] LABCLIA [id number] [place] [address] [place] Immature granulocytes/100 WBC (Bld) 0.3 % Normal [facility] Comment on above: Order Comment: Speci men Type: BLOOD SPECIMENOrdering Facility: [facility] Address: [address] [place] [address] Performed By: #### 5 7021-8 ####[facility] LABCLIA [id number] [place] [address] [place] Lymphocytes (Bld) [#/Vol] 1.29 10*3/uL Normal 1.00-4.00 [facility] Comment on above: Order Comment: Speci men Type: BLOOD SPECIMENOrdering Facility: [facility] Address: [address] [place] [address] Performed By: #### 5 7021-8 ####[facility] LABCLIA [id number] [place] [address] [place] Lymphocytes/100 WBC (Bld) 20.4 % Normal [facility] Comment on above: Order Comment: Speci men Type: BLOOD SPECIMENOrdering Facility: [facility] Address: [address] [place] [address] Performed By: #### 5 7021-8 ####[facility] LABIA [id number] [place] [address] [place] MCH (RBC) [Entitic mass] 29.7 pg Normal 26.0-34.0 [facility] Comment on above: Order Comment: Speci men Type: BLOOD SPECIMENOrdering Facility: [facility] Address: [address] [place] [address] Performed By: #### 5 7021-8 ####[facility] LABIA [id number] [place] [address] [place] MCHC (RBC) [Mass/Vol] 32.5 g/dL Normal 30.5-36.0 [facility] Comment on above: Order Comment: Speci men Type: BLOOD SPECIMENOrdering Facility: [facility] Address: [address] [place] [address] Performed By: #### 5 7021-8 ####[facility] [id number] [place] [address] [place] MCV (RBC) [Entitic vol] 91.4 fL Normal 80.0-100.0 [facility] Comment on above: Order Comment: Speci men Type: BLOOD SPECIMENOrdering Facility: [facility] Address: [address] [place] [address] Performed By: #### 5 7021-8 ####[facility] LABIA [id number] [place] [address] [place] Monocytes (Bld) [#/Vol] 0.47 10*3/uL Normal <0.87 [facility] Comment on above: Order Comment: Speci men Type: BLOOD SPECIMENOrdering Facility: [facility] Address: [address] [place] [address] Performed By: #### 5 7021-8 ####[facility] LABIA [id number] [place] [address] [place] Monocytes/100 WBC (Bld) 7.4 % Normal [facility] Comment on above: Order Comment: Speci men Type: BLOOD SPECIMENOrdering Facility: [facility] Address: [address] [place] [address] Performed By: #### 5 7021-8 ####[facility] LABCLIA [id number] [address] [address] [place] Neutrophils (Bld) [#/Vol] 4.42 10*3/uL Normal 1.45-7.50 [facility] Comment on above: Order Comment: Speci men Type: BLOOD SPECIMENOrdering Facility: [facility] Address: [address] [place] [address] Performed By: #### 5 7021-8 ####[facility] LABCLIA [id number] [place] [address] [place] Neutrophils/100 WBC (Bld) 70.0 % Normal [facility] Comment on above: Order Comment: Speci men Type: BLOOD SPECIMENOrdering Facility: [facility] Address: [address] [place] [address] Performed By: #### 5 7021-8 ####[facility] LABCLIA [id number] [place] [address] [place] Nucleated RBC (Bld) [#/Vol] 10*3/uL Normal <0.01 [facility] Comment on above: Order Comment: Speci men Type: BLOOD SPECIMENOrdering Facility: [facility] Address: [address] [place] [address] Performed By: #### 5 7021-8 ####[facility] LABCLIA [id number] [place] [address] [place] Nucleated RBC/100 WBC (Bld) [Ratio] 0.0 /100 WBC Normal [facility] Comment on above: Order Comment: Speci men Type: BLOOD SPECIMENOrdering Facility: [facility] Address: [address] [place] [address] Performed By: #### 5 7021-8 ####[facility] LABCLIA [id number] [place] [address] [place] Platelet mean volume (Bld) [Entitic vol] 9.3 fL Normal 9.0-12.7 [facility] Comment on above: Order Comment: Speci men Type: BLOOD SPECIMENOrdering Facility: [facility] Address: [address] [place] [address] Performed By: #### 5 7021-8 ####[facility] LABCLIA [id number] [place] [address] [place] Platelets (Bld) [#/Vol] 167 10*3/uL Normal 150-400 [facility] Comment on above: Order Comment: Speci men Type: BLOOD SPECIMENOrdering Facility: [facility] Address: [address] [place] [address] Performed By: #### 5 7021-8 ####[facility] LABIA [id number] [place] [address] [place] RBC (Bld) [#/Vol] 3.70 10*6/uL Low 3.90-5.20 [facility] Comment on above: Order Comment: Speci men Type: BLOOD SPECIMENOrdering Facility: [facility] Address: [address] [place] [address] Performed By: #### 5 7021-8 ####[facility] LABCLIA [id number] [place] [id number] [place] WBC (Bld) [#/Vol] 6.32 10*3/uL Normal 3.70-11.00 [facility] Comment on above: Order Comment: Speci men Type: BLOOD SPECIMENOrdering Facility: [facility] Address: [address] [place] [address] Performed By: #### 5 7021-8 ####[facility] LABCLIA [id number] [place] [address] [address] [facility] CONSULTon 05-06-2023 CONSULT HNO ID: [id number] Author: SEA MCKEON DO Service: Vascular Medicine Author Type: Physician Type: Consults Filed: 05/06/2023 15:50 Note Text: [facility] STAFF PHYSICIAN NOTE OF PERSONAL INVOLVEMENT IN CARE Agree with assessment and plan as outlined. 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 The patient is a pleasant 82 year old woman who was diagnosed with a right femoral DVT (06/2022) in the setting of achilles tendonitis. She was initially treated with full dose apixaban and later the dose was dropped to extended treatment dose (2.5 mg twice daily). She has also been on clopidogrel due to coronary artery stenting (2021). She has a vague prior h/o provoked DVT as well. Venous duplex of the bilateral legs performed on 05/04/23 is negative for DVT. Given no acute DVT there is no indication for an IVC filter. Given the setting of high suspicion for CAA she is not a candidate for anticoagulation. She has chronic leg swelling and left leg lymphedema as well. She wears gradient compression socks and uses a vasopneumatic pump. I encouraged her to continue wearing knee high gradient compression during waking hours every day and use her vasopneumatic pump for 1 hour, 5 days per week. I encouraged her to report for medical attention if she experiences any significant unexplained worsening of leg or arm swelling, limb pain, chest pain or shortness of breath. Her case was discussed at length with Dr. Houston who expressed a high concern for CAA with a high risk for recurrent intracranial bleeding on anticoagulation. He feels a single antiplatelet agent is acceptable. She will continue on low dose aspirin. Thank you for consulting. We will sign off. Please call back if any additional questions arise. I have reviewed the documentation obtained and documented by the Fellow and I have personally performed a face to face assessment of the patient and have personally participated in the kuo components of the visit which includes medical decision making. and have reviewed and updated the problem list as appropriate. I have personally performed a face to face assessment of the patient and have personally participated in the kuo components. I have discussed the case and management of the patient's care. 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 In regard to her VTE history, she was diagnosed with right lower extremity femoral DVT in June. No provocative factors could be identified including surgery, prolonged travel, hormonal therapy, immobilization/prolonged bedrest or hospitalization. The only notable thing is that she was diagnosed with Achilles tendonitis ~ 1 month prior to DVT as per the notes (patient does not vividly recall), and was advised PT. Although it is unclear how much mobile/active she was, she categorically denies being on bedrest or bedridden at that time. She isotherwise very active and independent. She has been on apixaban since June 2022. She is currently doing well, without any residual deficits. PAST MEDICAL HISTORY Diagnosis Date Arterial aneurysm (HCC) left eye Asthma rare use of albuterol, controled with zafirlukast, advair Bilateral shoulder injury before 1999 working in [employer] home Cataract of left eye Cataracts, bilateral HTN (hypertension) Hyperlipidemia Lung nodule 06/2015 Macular degeneration DESTINY (obstructive sleep apnea) s/p pharyngoplasty no cpap Pseudophakia of right eye PAST SURGICAL HISTORY Procedure Laterality Date EXCISION CHE NEUROMA EACH x3 LASER SURGERY OF EYE 2002 correction of arterial hemmorhage left eye PAST SURGICAL HISTORY OF 1967,93 breast bx PAST SURGICAL HISTORY OF 2000 L3-5 laminectomy PAST SURGICAL HISTORY OF bilateral heal spurs PAST SURGICAL HISTORY OF Left 01/20/15 left total reverse shoulder surgery PAST SURGICAL HISTORY OF Right 09/29/15 right total reverse shoulder surgery PHARYNGOPLASTY (RECONSTRUCTION PHARYNX) 2003 d/t DESTINY REMV CATARACT EXTRACAP,INSERT LENS Right SCREENING COLONSCOPY NOT HIGH RISK 2011 TONSILLECTOMY HX 2003 TOTAL KNEE REPLACEMENT 2004 bilateral kneee FAMILY HISTORY Problem Relation (more content not included)... Normal [facility] Comprehensive metabolic 2000 panelon 05-06-2023 Albumin [Mass/Vol] 3.1 g/dL Low 3.9-4.9 [facility] Comment on above: Order Comment: Speci men Type: BLOOD SPECIMENOrdering Facility: [facility] Address: [address] [place] [address] Performed By: #### 1 9123-9, 2776-03, 27552-9 ####[facility] LABCLIA [id number] [place] [address] [place] ALP [Catalytic activity/Vol] 46 U/L Normal 34-123 [facility] Comment on above: Order Comment: Speci men Type: BLOOD SPECIMENOrdering Facility: [facility] Address: [address] [place] [address] Performed By: #### 1 9123-9, 27709-09, 39191-4 ####[facility] LABIA [id number] [place] [address] [place] ALT [Catalytic activity/Vol] 7 U/L Normal 7-38 [facility] Comment on above: Order Comment: Speci men Type: BLOOD SPECIMENOrdering Facility: [facility] Address: [address] [place] [address] Performed By: #### 1 9123-9, 2776-03, 92091-9 ####[facility] LABIA [id number] [address] [address] [place] Anion gap [Moles/Vol] 10 mmol/L Normal 9-18 [facility] Comment on above: Order Comment: Speci men Type: BLOOD SPECIMENOrdering Facility: [facility] Address: [address] [place] [address] Performed By: #### 1 9123-9, 27709-09, 92094-5 ####[facility] LABCLIA [id number] [address] [address] [place] AST [Catalytic activity/Vol] 14 U/L Normal 13-35 [facility] Comment on above: Order Comment: Speci men Type: BLOOD SPECIMENOrdering Facility: [facility] Address: [address] [place], [place] [address] Performed By: #### 1 9123-9, 27709-09, ####[facility] LABCLIA [id number] [address] [address] [place] Bilirubin [Mass/Vol] 0.3 mg/dL Normal 0.2-1.3 [facility] Comment on above: Order Comment: Speci men Type: BLOOD SPECIMENOrdering Facility: [facility] Address: [address] [place] [address] Performed By: #### 1 9123-9, 27709-09, ####[facility] LABCLIA [id number] [place] [id number] [place] Calcium [Mass/Vol] 8.7 mg/dL Normal 8.5-10.2 [facility] Comment on above: Order Comment: Speci men Type: BLOOD SPECIMENOrdering Facility: [facility] Address: [address] [place], [place] [address] Performed By: #### 1 9123-9, 27709-09, ####[facility] LABCLIA [id number] [address] [address] [place] Chloride [Moles/Vol] 102 mmol/L Normal 97-105 [facility] Comment on above: Order Comment: Speci men Type: BLOOD SPECIMENOrdering Facility: [facility] Address: [address] [place], [place] [address] Performed By: #### 1 9123-9, 27709-09, ####[facility] LABCLIA [id number] [place] [address] [place] CO2 [Moles/Vol] 23 mmol/L Normal 22-30 [facility] Comment on above: Order Comment: Karey macdonald Type: BLOOD SPECIMENOrdering Facility: [facility] Address: [address] [place] [address] Performed By: #### 1 9123-9, 2777, ####[facility] LABCLIA [id number] [place] [address] [place] Creatinine [Mass/Vol] 0.70 mg/dL Normal 0.58-0.96 [facility] Comment on above: Order Comment: Speci men Type: BLOOD SPECIMENOrdering Facility: [facility] Address: [address] [place] [address] Performed By: #### 1 9123-9, 27709-09, ####[facility] [id number] [place] [address] [place] Creatinine and Glomerular filtration rate.predicted panel (S/P/Bld) 86 mL/min/1.73m??? Normal >=60 [facility] Comment on above: Order Comment: Karey macdonald Type: BLOOD SPECIMENOrdering Facility: [facility] Address: [address] [place] [address] Result Comment: Colleen mated Glomerular Filtration Rate (eGFR) is calculated using the 2020 CKD-EPI creatinine equation. This equation utilizes serum creatinine, sex, and age as parameters. The creatinine assay has traceable calibration to isotope dilution-mass spectrometry. Refer to KDIGO guidelines for clinical interpretation. In patients with unstable renal function, e.g. those with acute kidney injury, the eGFR may not accurately reflect actual GFR. Performed By: #### 1 9123-9, 27709-09, 06924-2 ####[facility] LABCLIA [id number] [place] [id number] [place] Glucose [Mass/Vol] 87 mg/dL Normal 74-99 [facility] Comment on above: Order Comment: Karey macdonald Type: BLOOD SPECIMENOrdering Facility: [facility] Address: [address] [place] [address] Result Comment: The [place] [employer] (ADA) provides guidance for cutoff values for fasting glucose and random glucose. The ADA defines fasting as no caloric intake for at least 8 hours. Fasting plasma glucose results between 100 to 125 mg/dL indicate increased risk for diabetes (prediabetes). Fasting plasma glucose results greater than or equal to 126 mg/dL meet the criteria for diagnosis of diabetes. In the absence of unequivocal hyperglycemia, results should be confirmed by repeat testing. In a patient with classic symptoms of hyperglycemia or hyperglycemic crisis, random plasma glucose results greater than or equal to 200 mg/dL meet the criteria for diagnosis of diabetes. Reference: Standards of Medical Care in Diabetes 2016, [place] [employer]. Diabetes Care. 2016.39(Suppl 1). Performed By: #### 1 9123-9, 2777-, 13420-7 ####[facility] LABCLIA [id number] [place] [address] [place] Potassium [Moles/Vol] 3.7 mmol/L Normal 3.7-5.1 [facility] Comment on above: Order Comment: Karey macdonald Type: BLOOD SPECIMENOrdering Facility: [facility] Address: [address] [place] [address] Performed By: #### 1 9123-9, 2777-, 83384-4 ####[facility] LABCLIA [id number] [place] [address] [place] Protein [Mass/Vol] 5.4 g/dL Low 6.3-8.0 [facility] Comment on above: Order Comment: Karey macdonald Type: BLOOD SPECIMENOrdering Facility: [facility] Address: [address] [place] [address] Performed By: #### 1 9123-9, 2777-, 09350-9 ####[facility] LABCLIA [id number] [place] [id number] [place] Sodium [Moles/Vol] 135 mmol/L Low 136-144 [facility] Comment on above: Order Comment: Speci men Type: BLOOD SPECIMENOrdering Facility: [facility] Address: [address] [place] [address] Performed By: #### 1 9123-9, 2777-1, 75194-0 ####[facility] LABCLIA [id number] [place] [address] [place] Urea nitrogen [Mass/Vol] 15 mg/dL Normal 7-21 [facility] Comment on above: Order Comment: Speci men Type: BLOOD SPECIMENOrdering Facility: [facility] Address: [address] [place] [address] Performed By: #### 1 9123-9, 2777-1, 06340-6 ####[facility] LABCLIA [id number] [place] [address] [place] Eosinophils/100 WBC Auto (Bl d)on 05-06-2023 Eosinophils/100 WBC (Bld) 1.6 % [facility] Erythrocyte distribution wid th Auto (RBC) [Ratio]on 05-06-2023 Erythrocyte distribution width (RBC) [Ratio] 14.0 % 11.5-15.0 [facility] Hematocrit Auto (Bld) [Volum e fraction]on 05-06-2023 Hematocrit (Bld) [Volume fraction] 33.8 % 36.0-46.0 [facility] Hemoglobin [Mass/volume] in Bloodon 05-06-2023 Hemoglobin (Bld) [Mass/Vol] 11.0 g/dL 11.5-15.5 [facility] INR in Platelet poor plasma by Coagulation assayon 05-06-2023 INR Coag (PPP) [Relative time] 1.0 {INR} 0.9-1.3 [facility] Comment on above: Vitamin K Antagonist (VKA) Therapeutic Range: INR 2 to 3 (Target INR of 2.5)Note: For patients treated with VKA drugs, such as warfarin, the [place] [employer] 2012 Guideline recommends a therapeutic INR range of 2 to 3 (target INR of 2.5). This recommendation includes high-risk patients with antiphospholipid syndrome with previous arterial or venous thromboembolism, current-generation mechanical or bioprosthetic aortic heart valve replacement.Note: Patients with mechanical aortic valve replacement and additional risk factors for thromboembolic events (atrial fibrillation, previous thromboembolism, LV dysfunction, hypercoagulable conditions) or an older generation mechanical AVR (i.e., ball in-Cage) or any mechanical MVR should have a INR therapeutic range of 2.5 to 3.5 (target INR of 3).Dakotah GH, et al. Chest 2012, 141:7S-47SNishcaitlin RA, et al. [facility] 2017, 70: 252-289 Laboratory - Chemistry and C hemistry - challengeon 05-06-2023 Albumin [Mass/Vol] 3.1 g/dL 3.9-4.9 [facility] ALP [Catalytic activity/Vol] 46 U/L 34-123 [facility] ALT [Catalytic activity/Vol] 7 U/L 7-38 [facility] AST [Catalytic activity/Vol] 14 U/L 13-35 [facility] Bilirubin [Mass/Vol] 0.3 mg/dL 0.2-1.3 [facility] Calcium [Mass/Vol] 8.7 mg/dL 8.5-10.2 [facility] Chloride [Moles/Vol] 102 mmol/L 97-105 [facility] CO2 [Moles/Vol] 23 mmol/L 22-30 [facility] Creatinine [Mass/Vol] 0.70 mg/dL 0.58-0.96 [facility] Glucose [Mass/Vol] 87 mg/dL 74-99 [facility] Comment on above: The [place] Diabete s Association (ADA) provides guidance for cutoff values for fasting glucose and random glucose. The ADA defines fasting as no caloric intake for at least 8 hours. Fasting plasma glucose results between 100 to 125 mg/dL indicate increased risk for diabetes (prediabetes).Fasting plasma glucose results greater than or equal to 126 mg/dL meet the criteria for diagnosis of diabetes. In the absence of unequivocal hyperglycemia, results should be confirmed by repeat testing. In a patient with classic symptoms of hyperglycemia or hyperglycemic crisis, random plasma glucose results greater than or equal to 200 mg/dL meet the criteria for diagnosis of diabetes.Reference: Standards of Medical Care in Diabetes 2016, [place] [employer]. Diabetes Care. 2016.39(Suppl 1). Magnesium [Mass/Vol] 1.8 mg/dL 1.7-2.3 [facility] Potassium [Moles/Vol] 3.7 mmol/L 3.7-5.1 [facility] Protein [Mass/Vol] 5.4 g/dL 6.3-8.0 [facility] Sodium [Moles/Vol] 135 mmol/L 136-144 [facility] Urea nitrogen [Mass/Vol] 15 mg/dL 7- [facility] Laboratory - Hematology and Cell countson 05-06-2023 Eosinophils (Bld) [#/Vol] 0.10 10*3/uL <0.46 [facility] Immature granulocytes/100 WBC (Bld) 0.3 % [facility] Leukocytes [#/volume] correc jamila for nucleated erythrocytes in Blood by Automated counon 05-06-2023 WBC corrected for nucl RBC Auto (Bld) [#/Vol] 6.32 k/uL 3.70-11.00 [facility] Lymphocytes Auto (Bld) [#/Vo l]on 05-06-2023 Lymphocytes (Bld) [#/Vol] 1.29 10*3/uL 1.00-4.00 [facility] Lymphocytes/100 WBC Auto (Bl d)on 05-06-2023 Lymphocytes/100 WBC (Bld) 20.4 % [facility] MCH Auto (RBC) [Entitic mass ]on 05-06-2023 MCH (RBC) [Entitic mass] 29.7 pg 26.0-34.0 [facility] MCHC Auto (RBC) [Mass/Vol]on 05-06-2023 MCHC (RBC) [Mass/Vol] 32.5 g/dL 30.5-36.0 [facility] MCV Auto (RBC) [Entitic vol] on 05-06-2023 MCV (RBC) [Entitic vol] 91.4 fL 80.0-100.0 [facility] Magnesium SerPl-mCncon 05-06 Magnesium [Mass/Vol] 1.8 mg/dL Normal 1.7-2.3 [facility] Comment on above: Order Comment: Speci men Type: BLOOD SPECIMENOrdering Facility: [facility] Address: [address] [place] [address] Performed By: #### 1 9123-9, 2777-1, 40009-6 ####[facility] LABCLIA [id number] [address] [address] [place] Monocytes Auto (Bld) [#/Vol] on 05-06-2023 Monocytes (Bld) [#/Vol] 0.47 10*3/uL <0.87 [facility] Monocytes/100 WBC Auto (Bld) on 05-06-2023 Monocytes/100 WBC (Bld) 7.4 % [facility] Neutrophils Auto (Bld) [#/Vo l]on 05-06-2023 Neutrophils (Bld) [#/Vol] 4.42 10*3/uL 1.45-7.50 [facility] Neutrophils/100 WBC Auto (Bl d)on 05-06-2023 Neutrophils/100 WBC (Bld) 70.0 % [facility] No Panel Informationon 05-06 Estimated GFR (CKD-EPI) 86 mL/min/1.73m??? >=60 [facility] Comment on above: Estimated Glomerular Filtration Rate (eGFR) is calculated using the 2020 CKD-EPI creatinine equation. This equation utilizes serum creatinine, sex, and age as parameters. The creatinine assay has traceable calibration to isotope dilution-mass spectrometry. Refer to KDIGO guidelines for clinical interpretation. In patients with unstable renal function, e.g. those with acute kidney injury, the eGFR may not accurately reflect actual GFR. Immature Granulocyte # (Auto) <0.03 k/uL <0.10 [facility] Phosphorus Level 3.4 mg/dL 2.7-4.8 [facility] Nucleated RBC Auto (Bld) [#/ Vol]on 05-06-2023 Nucleated RBC (Bld) [#/Vol] 10*3/uL <0.01 [facility] Nucleated erythrocytes [Pres ence] in Blood by Automated counton 05-06-2023 Nucleated RBC Auto Ql (Bld) 0.0 /100{WBC} [facility] PT panel Coag (PPP)on 2023 INR Coag (PPP) [Relative time] 1.0 {INR} Normal 0.9-1.3 [facility] Comment on above: Order Comment: Speci torres Type: BLOOD SPECIMENOrdering Facility: [facility] Address: [address] [place] [address] Result Comment: Jojo min K Antagonist (VKA) Therapeutic Range: INR 2 to 3 (Target INR of 2.5) Note: For patients treated with VKA drugs, such as warfarin, the [place] [employer] 2012 Guideline recommends a therapeutic INR range of 2 to 3 (target INR of 2.5). This recommendation includes high-risk patients with antiphospholipid syndrome with previous arterial or venous thromboembolism, current-generation mechanical or bioprosthetic aortic heart valve replacement. Note: Patients with mechanical aortic valve replacement and additional risk factors for thromboembolic events (atrial fibrillation, previous thromboembolism, LV dysfunction, hypercoagulable conditions) or an older generation mechanical AVR (i.e., ball in-Cage) or any mechanical MVR should have a INR therapeutic range of 2.5 to 3.5 (target INR of 3). Dakotah GH, et al. Chest 2012, 141:7S-47S Maribel RA, et al. [facility] 2017, 70: 252-289 Performed By: #### 1 4979-9, 50845-1 ####[facility] LABCLIA [id number] [place] [id number] [place] PT Coag (PPP) [Time] 10.7 s Normal 9.7-13.0 [facility] Comment on above: Order Comment: Speci men Type: BLOOD SPECIMENOrdering Facility: [facility] Address: [address] [place] [address] Performed By: #### 1 4979-9, 50565-7 ####[facility] LABCLIA [id number] [place] [id number] [place] Phosphate SerPl-mCncon 05-06 Phosphate [Mass/Vol] 3.4 mg/dL Normal 2.7-4.8 [facility] Comment on above: Order Comment: Speci men Type: BLOOD SPECIMENOrdering Facility: [facility] Address: [address] [place] [address] Performed By: #### 1 9123-9, 2777-1, 98441-7 ####[facility] LABCLIA [id number] [place] [address] [place] Platelet mean volume Auto (B ld) [Entitic vol]on 05-06-2023 Platelet mean volume (Bld) [Entitic vol] 9.3 fL 9.0-12.7 [facility] Platelets Auto (Bld) [#/Vol] on 05-06-2023 Platelets (Bld) [#/Vol] 167 10*3/uL 150-400 [facility] Prothrombin time (PT)on 04-13 PT Coag (PPP) [Time] 10.7 s 9.7-13.0 [facility] RBC Auto (Bld) [#/Vol]on RBC (Bld) [#/Vol] 3.70 10*6/uL 3.90-5.20 [facility] Serum or plasma anion gap de terminationon 05-06-2023 Anion gap [Moles/Vol] 10 mmol/L 9-18 [facility] aPTT PPPon 05-06-2023 aPTT Coag (PPP) [Time] 27.8 s Normal 23.0-32.4 [facility] Comment on above: Order Comment: Speci men Type: BLOOD SPECIMENOrdering Facility: [facility] Address: [address] [place] [address] Performed By: #### 1 4979-9, 94580-9 ####[facility] LABCLIA [id number] [place] [address] [place] CBC W Auto Differential pane l (Bld)on 05-05-2023 Basophils (Bld) [#/Vol] 0.04 10*3/uL Normal <0.11 [facility] Comment on above: Order Comment: Speci men Type: BLOOD SPECIMENOrdering Facility: [facility] Address: [address] [place] [address] Performed By: #### 5 7021-8 ####[facility] LABCLIA [id number] [place] [address] [place] Basophils/100 WBC (Bld) 0.6 % Normal [facility] Comment on above: Order Comment: Speci men Type: BLOOD SPECIMENOrdering Facility: [facility] Address: [address] [place] [address] Performed By: #### 5 7021-8 ####[facility] LABCLIA [id number] [place] [address] [place] Differential cell count method Nom (Bld) Auto Normal [facility] Comment on above: Order Comment: Speci men Type: BLOOD SPECIMENOrdering Facility: [facility] Address: [address] [place] [address] Performed By: #### 5 7021-8 ####[facility] LABCLIA [id number] [place] [address] [place] Eosinophils (Bld) [#/Vol] 0.18 10*3/uL Normal <0.46 [facility] Comment on above: Order Comment: Speci men Type: BLOOD SPECIMENOrdering Facility: [facility] Address: [address] [place] [address] Performed By: #### 5 7021-8 ####[facility] LABCLIA [id number] [place] [address] [place] Eosinophils/100 WBC (Bld) 2.5 % Normal [facility] Comment on above: Order Comment: Speci men Type: BLOOD SPECIMENOrdering Facility: [facility] Address: [address] [place] [address] Performed By: #### 5 7021-8 ####[facility] LABCLIA [id number] [place] [address] [place] Erythrocyte distribution width (RBC) [Ratio] 14.1 % Normal 11.5-15.0 [facility] Comment on above: Order Comment: Speci men Type: BLOOD SPECIMENOrdering Facility: [facility] Address: [address] [place] [address] Performed By: #### 5 7021-8 ####[facility] LABCLIA [id number] [place] [address] [place] Hematocrit (Bld) [Volume fraction] 36.2 % Normal 36.0-46.0 [facility] Comment on above: Order Comment: Speci men Type: BLOOD SPECIMENOrdering Facility: [facility] Address: [address] [place] [address] Performed By: #### 5 7021-8 ####[facility] LABCLIA [id number] [place] [address] [place] Hemoglobin (Bld) [Mass/Vol] 11.7 g/dL Normal 11.5-15.5 [facility] Comment on above: Order Comment: Speci men Type: BLOOD SPECIMENOrdering Facility: [facility] Address: [address] [place] [address] Performed By: #### 5 7021-8 ####[facility] LABIA [id number] [place] [address] [place] Immature granulocytes (Bld) [#/Vol] 10*3/uL Normal <0.10 [facility] Comment on above: Order Comment: Speci men Type: BLOOD SPECIMENOrdering Facility: [facility] Address: [address] [place] [address] Performed By: #### 5 7021-8 ####[facility] LABCLIA [id number] [place] [address] [place] Immature granulocytes/100 WBC (Bld) 0.3 % Normal [facility] Comment on above: Order Comment: Speci men Type: BLOOD SPECIMENOrdering Facility: [facility] Address: [address] [place] [address] Performed By: #### 5 7021-8 ####[facility] LABCLIA [id number] [place] [address] [place] Lymphocytes (Bld) [#/Vol] 1.46 10*3/uL Normal 1.00-4.00 [facility] Comment on above: Order Comment: Speci men Type: BLOOD SPECIMENOrdering Facility: [facility] Address: [address] [place] [address] Performed By: #### 5 7021-8 ####[facility] LABCLIA [id number] [place] [address] [place] Lymphocytes/100 WBC (Bld) 20.5 % Normal [facility] Comment on above: Order Comment: Speci men Type: BLOOD SPECIMENOrdering Facility: [facility] Address: [address] [place] [address] Performed By: #### 5 7021-8 ####[facility] LABCLIA [id number] [place] [address] [place] MCH (RBC) [Entitic mass] 29.8 pg Normal 26.0-34.0 [facility] Comment on above: Order Comment: Speci men Type: BLOOD SPECIMENOrdering Facility: [facility] Address: [address] [place] [address] Performed By: #### 5 7021-8 ####[facility] LABCLIA [id number] [place] [address] [place] MCHC (RBC) [Mass/Vol] 32.3 g/dL Normal 30.5-36.0 [facility] Comment on above: Order Comment: Speci men Type: BLOOD SPECIMENOrdering Facility: [facility] Address: [address] [place] [address] Performed By: #### 5 7021-8 ####[facility]CLIA [id number] [place] [address] [place] MCV (RBC) [Entitic vol] 92.3 fL Normal 80.0-100.0 [facility] Comment on above: Order Comment: Speci men Type: BLOOD SPECIMENOrdering Facility: [facility] Address: [address] [place] [address] Performed By: #### 5 7021-8 ####[facility] LABIA [id number] [place] [address] [place] Monocytes (Bld) [#/Vol] 0.57 10*3/uL Normal <0.87 [facility] Comment on above: Order Comment: Speci men Type: BLOOD SPECIMENOrdering Facility: [facility] Address: [address] [place] [address] Performed By: #### 5 7021-8 ####[facility] LABIA [id number] [place] [address] [place] Monocytes/100 WBC (Bld) 8.0 % Normal [facility] Comment on above: Order Comment: Speci men Type: BLOOD SPECIMENOrdering Facility: [facility] Address: [address] [place] [address] Performed By: #### 5 7021-8 ####[facility] LABIA [id number] [place] [address] [place] Neutrophils (Bld) [#/Vol] 4.85 10*3/uL Normal 1.45-7.50 [facility] Comment on above: Order Comment: Speci men Type: BLOOD SPECIMENOrdering Facility: [facility] Address: [address] [place] [address] Performed By: #### 5 7021-8 ####[facility] LABIA [id number] [place] [address] [place] Neutrophils/100 WBC (Bld) 68.1 % Normal [facility] Comment on above: Order Comment: Speci men Type: BLOOD SPECIMENOrdering Facility: [facility] Address: [address] [place] [address] Performed By: #### 5 7021-8 ####[facility] LABCLIA [id number] [place] [address] [place] Nucleated RBC (Bld) [#/Vol] 10*3/uL Normal <0.01 [facility] Comment on above: Order Comment: Speci men Type: BLOOD SPECIMENOrdering Facility: [facility] Address: [address] [place] [address] Performed By: #### 5 7021-8 ####[facility] LABIA [id number] [place] [address] [place] Nucleated RBC/100 WBC (Bld) [Ratio] 0.0 /100 WBC Normal [facility] Comment on above: Order Comment: Speci men Type: BLOOD SPECIMENOrdering Facility: [facility] Address: [address] [place] [address] Performed By: #### 5 7021-8 ####[facility] LABIA [id number] [place] [address] [place] Platelet mean volume (Bld) [Entitic vol] 9.3 fL Normal 9.0-12.7 [facility] Comment on above: Order Comment: Speci men Type: BLOOD SPECIMENOrdering Facility: [facility] Address: [address] [place] [address] Performed By: #### 5 7021-8 ####[facility] LABIA [id number] [place] [address] [place] Platelets (Bld) [#/Vol] 177 10*3/uL Normal 150-400 [facility] Comment on above: Order Comment: Speci men Type: BLOOD SPECIMENOrdering Facility: [facility] Address: [address] [place] [address] Performed By: #### 5 7021-8 ####[facility] LABCLIA [id number] [place] [id number] [place] RBC (Bld) [#/Vol] 3.92 10*6/uL Normal 3.90-5.20 [facility] Comment on above: Order Comment: Speci men Type: BLOOD SPECIMENOrdering Facility: [facility] Address: [address] [place] [address] Performed By: #### 5 7021-8 ####[facility] LABCLIA [id number] [place] [address] [place] WBC (Bld) [#/Vol] 7.12 10*3/uL Normal 3.70-11.00 [facility] Comment on above: Order Comment: Speci men Type: BLOOD SPECIMENOrdering Facility: [facility] Address: [address] [place] [address] Performed By: #### 5 7021-8 ####[facility] LABIA [id number] [place] [address] [place] CONSULT PROGon 05-05-2023 CONSULT PROG HNO ID: [id number] Author: RUFINO HOUSTON DO Service: Neurology Stroke Author Type: Resident Type: Consult Progress Note Filed: 05/05/2023 19:23 Note Text: -- Attestation signed by Rufino Houston DO at 05/05/2023 7:23 PM [facility] STAFF PHYSICIAN NOTE OF PERSONAL INVOLVEMENT IN CARE I have reviewed the progress note obtained and documented by the resident and I personally participated in the kuo components. I have discussed the case and management of the patient's care. The following comments revise or confirm relevant kuo components of their note. Clinically, the patient reports episodes of difficulty finding words intermittently prior to admission. She lives alone and reports that she is independent, and drives a car. 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 We discussed the ongoing evaluation and management of the patient in a collaborative fashion. We educated the patient and family on stroke risk factors, and continued evaluation and management of their medical problems. All questions were answered. SIGNATURE: Rufino Houston DO DATE of SERVICE: May 05, 2023 TIME of SERVICE: 11:30 AM -- NEURO STROKE CONSULT PROGRESS NOTE SERVICE DATE: 05/05/2023 SERVICE TIME: 12:28 PM Subjective INTERVAL HISTORY: -NAEON -SBP 104-158, afebrile, on RA -No acute concerns this AM, alert and oriented, responding and conversing appropriately MEDICATIONS Current Facility-Administered Medications Medication Dose Route Frequency NaCl 0.9% iv flush bag 20 mL INTRAVENOUS PRN pantoprazole DR 40 mg tab(s) (PROTONIX) 40 mg ORAL DAILY (6 AM) senna-docusate 8.6-50 mg 1 tablet (SENNA-S) 1 tablet ORAL/FEEDING TUBE BID cetirizine 10 mg tab(s) (ZYRTEC) 10 mg ORAL/FEEDING TUBE DAILY PRN losartan 100 mg tab(s) (COZAAR) 100 mg ORAL/FEEDING TUBE DAILY montelukast 10 mg tab(s) (SINGULAIR) 10 mg ORAL/FEEDING TUBE DAILY baclofen 5 mg tab(s) 5 mg ORAL/FEEDING TUBE AT BEDTIME sodium chloride 0.9 % (flush) 2-10 mL (BD POSIFLUSH) 2-10 mL INTRAVENOUS DIRECTED PRN And perflutren lipid microspheres 1.1 mg/mL 1.3 mL injection (DEFINITY) 1.3 mL INTRAVENOUS DIRECTED PRN hydrALAZINE 5-10 mg injection (APRESOLINE) 5-10 mg INTRAVENOUS q 15 MIN PRN acetaminophen 650 mg tab(s) (TYLENOL) 650 mg ORAL/FEEDING TUBE q 4 H PRN pravastatin 40 mg tab(s) (PRAVACHOL) 40 mg ORAL AT BEDTIME metoprolol tartrate (short acting) 12.5 mg tab(s) (LOPRESSOR) 12.5 mg ORAL/FEEDING TUBE q 12 H gabapentin 300 mg cap(s) (NEURONTIN) 300 mg ORAL/FEEDING TUBE q 8 H levETIRAcetam 500 mg tab(s) (KEPPRA) 500 mg ORAL/FEEDING TUBE BID ondansetron (PF) 4 mg injection (ZOFRAN) 4 mg INTRAVENOUS q 6 H PRN melatonin 3 mg tab(s) 3 mg ORAL AT BEDTIME Objective PHYSICAL EXAM Vital Signs: BP 142/64 Pulse 60 Temp 36.3 ?C (97.3 ?F) Resp 30 Ht 170.2 cm (5' 7 ) Wt 86.7 kg (191 lb 2.2 oz) LMP 02/12/1990 (Within Years) SpO2 97% BMI 29.94 kg/m? GENERAL: Awake/easily arousable. HEENT: Normocephalic/atraumatic RESPIRATORY: Normal respiratory effort. CARDIOVASCULAR: No lower extremity edema. GI: Not examined EXTREMITIES: No cyanosis, clubbing or edema. SKIN: Skin color, texture, turgor normal. No rashes or lesions. NEUROLOGICAL: LOC: 0 - alert and responsive 0 LOC Questions: 0 - both correct 0 LOC Commands: 0 - both correct 0 Best Gaze: 0 - normal gaze 0 Visual: 0 - no visual loss 0 Facial Palsy: 0 - normal 0 Motor Left Arm: 0 - no drift 0 Motor Right Arm: 0 - no drift 0 Motor Left Le - no drift 0 Motor Right Le - no drift 0 Limb Ataxia: 0 - no ataxia (or aphasic, hemiplegic) 0 Sensory: 0 - normal 0 Best Language: 0 - normal 0 Dysarthria: 0 - normal 0 Extinction and Inattention: 0 - normal, none detected (or visual loss alone) 0 Daily NIHSS Score: 0 (05/05/23 0858 : Tyrone Olson MD) 0 NEUROLOGIC EXAMINATION Mental Status: Alert, oriented, following all commands appropriately. Cranial Nerves: Horizontal gaze intact. Visual escobar intact. No facial droop appreciated. Mot (more content not included)... Normal [facility] Comprehensive metabolic 2000 panelon 05-05-2023 Albumin [Mass/Vol] 3.4 g/dL Low 3.9-4.9 [facility] Comment on above: Order Comment: Speci men Type: BLOOD SPECIMENOrdering Facility: [facility] Address: [address] [place] [address] Performed By: #### 2 4323-8, , 2776-03 ####[facility]CL[facility] [id number] [place] [address] [place] ALP [Catalytic activity/Vol] 55 U/L Normal 34-123 [facility] Comment on above: Order Comment: Speci men Type: BLOOD SPECIMENOrdering Facility: [facility] Address: [address] [place] [address] Performed By: #### 2 4323-8, , 2776-03 ####[facility]CL[facility] [id number] [place] [address] [place] ALT [Catalytic activity/Vol] 6 U/L Low 7-38 [facility] Comment on above: Order Comment: Speci men Type: BLOOD SPECIMENOrdering Facility: [facility] Address: [address] [place] [address] Performed By: #### 2 4323-8, , 2776-03 ####[facility]CLIA [id number] [place] [address] [place] Anion gap [Moles/Vol] 11 mmol/L Normal 9-18 [facility] Comment on above: Order Comment: Speci men Type: BLOOD SPECIMENOrdering Facility: [facility] Address: [address] [place] [address] Performed By: #### 2 4323-8, 18684-5, 2776- ####[facility]CL[facility] [id number] [place] [address] [place] AST [Catalytic activity/Vol] 15 U/L Normal 13-35 [facility] Comment on above: Order Comment: Speci men Type: BLOOD SPECIMENOrdering Facility: [facility] Address: [address] [place] [address] Performed By: #### 2 4323-8, , 2776-03 ####[facility]CL[facility] [id number] [place] [address] [place] Bilirubin [Mass/Vol] 0.2 mg/dL Normal 0.2-1.3 [facility] Comment on above: Order Comment: Speci men Type: BLOOD SPECIMENOrdering Facility: [facility] Address: [address] [place] [address] Performed By: #### 2 4323-8, , 2776-03 ####[facility]CLIA [id number] [place] [address] [place] Calcium [Mass/Vol] 9.5 mg/dL Normal 8.5-10.2 [facility] Comment on above: Order Comment: Speci men Type: BLOOD SPECIMENOrdering Facility: [facility] Address: [address] [place] [address] Performed By: #### 2 4323-8, 21286-4, 2776-03 ####[facility]IA [id number] [place] [address] [place] Chloride [Moles/Vol] 102 mmol/L Normal 97-105 [facility] Comment on above: Order Comment: Speci men Type: BLOOD SPECIMENOrdering Facility: [facility] Address: [address] [place] [address] Performed By: #### 2 4323-8, , 2776-03 ####[facility]CL[facility] [id number] [place] [address] [place] CO2 [Moles/Vol] 24 mmol/L Normal 22-30 [facility] Comment on above: Order Comment: Speci men Type: BLOOD SPECIMENOrdering Facility: [facility] Address: [address] [place] [address] Performed By: #### 2 4323-8, , 2776-03 ####[facility] [id number] [place] [address] [place] Creatinine [Mass/Vol] 0.78 mg/dL Normal 0.58-0.96 [facility] Comment on above: Order Comment: Speci men Type: BLOOD SPECIMENOrdering Facility: [facility] Address: [address] [place] [address] Performed By: #### 2 4323-8, , 2776-03 ####[facility]CL[facility] [id number] [place] [address] [place] Creatinine and Glomerular filtration rate.predicted panel (S/P/Bld) 75 mL/min/1.73m??? Normal >=60 [facility] Comment on above: Order Comment: Speci men Type: BLOOD SPECIMENOrdering Facility: [facility] Address: [address] [place] [address] Result Comment: Colleen mated Glomerular Filtration Rate (eGFR) is calculated using the 2020 CKD-EPI creatinine equation. This equation utilizes serum creatinine, sex, and age as parameters. The creatinine assay has traceable calibration to isotope dilution-mass spectrometry. Refer to KDIGO guidelines for clinical interpretation. In patients with unstable renal function, e.g. those with acute kidney injury, the eGFR may not accurately reflect actual GFR. Performed By: #### 2 4323-8, , 2776-03 ####[facility]CL[facility] [id number] [place] [id number] [place] Glucose [Mass/Vol] 96 mg/dL Normal 74-99 [facility] Comment on above: Order Comment: Speci men Type: BLOOD SPECIMENOrdering Facility: [facility] Address: [address] [place] [address] Result Comment: The [place] [employer] (ADA) provides guidance for cutoff values for fasting glucose and random glucose. The ADA defines fasting as no caloric intake for at least 8 hours. Fasting plasma glucose results between 100 to 125 mg/dL indicate increased risk for diabetes (prediabetes). Fasting plasma glucose results greater than or equal to 126 mg/dL meet the criteria for diagnosis of diabetes. In the absence of unequivocal hyperglycemia, results should be confirmed by repeat testing. In a patient with classic symptoms of hyperglycemia or hyperglycemic crisis, random plasma glucose results greater than or equal to 200 mg/dL meet the criteria for diagnosis of diabetes. Reference: Standards of Medical Care in Diabetes 2016, [place] [employer]. Diabetes Care. 2016.39(Suppl 1). Performed By: #### 2 4323-8, , 2776-03 ####[facility] [id number] [place] [id number] [place] Potassium [Moles/Vol] 4.1 mmol/L Normal 3.7-5.1 [facility] Comment on above: Order Comment: Speci men Type: BLOOD SPECIMENOrdering Facility: [facility] Address: [address] [place] [address] Performed By: #### 2 4323-8, , 2776-03 ####[facility]CL[facility] [id number] [address] [address] [place] Protein [Mass/Vol] 6.1 g/dL Low 6.3-8.0 [facility] Comment on above: Order Comment: Speci men Type: BLOOD SPECIMENOrdering Facility: [facility] Address: [address] [place] [address] Performed By: #### 2 4323-8, 51434-2, 2771 ####[facility]CL[facility] [id number] [address] [address] [place] Sodium [Moles/Vol] 137 mmol/L Normal 136-144 [facility] Comment on above: Order Comment: Speci men Type: BLOOD SPECIMENOrdering Facility: [facility] Address: [address] [place], [place] [address] Performed By: #### 2 4323-8, 77766-6, 2771 ####[facility] [id number] [address] [address] [place] Urea nitrogen [Mass/Vol] 13 mg/dL Normal 7-21 [facility] Comment on above: Order Comment: Speci men Type: BLOOD SPECIMENOrdering Facility: [facility] Address: [address] [place], [place] [address] Performed By: #### 2 4323-8, 59521-6, 2771 ####[facility] [id number] [place] [id number] [place] [id number] 05-05-2023 ECG01 Ventricular Rate : 8 1 BPM Atrial Rate : 81 BPM P-R Interval : 180 ms QRS Duration : 80 ms Q-T Interval : 380 ms QTC Calculation(Bazett) : 441 ms Calculated P [place] : 63 degrees Calculated R [place] : 2 degrees Calculated T [place] : 41 degrees NORMAL SINUS RHYTHM NORMAL ECG Confirmed by MD MIKE, PhD, MAGI ([id number]) on 05/11/2023 8:03:14 AM NAME : CARLY MARCELINO PID : [id number] : 1940 Gender : Female Race : ORD : Procedure Date : May 05 2023 16:26:53 Edit Date : May 11 2023 08:03:16 Diagnosis: NORMAL SINUS RHYTHM NORMAL ECG Confirmed by MD MIKE, MAGI Wolff ([id number]) on 05/11/2023 8:03:14 AM Test Reason : Location : 89 : M80 M80-17 Overread By : MD MIKE, PhD,MAGI Edited By : MD MIKE, PhD,MAGI Referred By : STACIA DWYER Acquired by : ANDERS HINDS [facility] EMERon 05-05-2023 MEDICAL WINIFRED HNO ID: [id number] Author: OSMANY GOYAL MD Service: Critical Care Author Type: Physician Type: Chg in Clinical Condition Filed: 05/05/2023 17:56 Note Text: MEDICAL EMERGENCY TEAM AMET CODE STATUS: Code Status: Full Code BACKGROUND 82 year old R handed female with a PMH of seizure disorder (forceps delivery at , unknown last seizure), HTN, CAD/MS s/p PCI/Stent 12/01 on Plavix, 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 Stroke Neurology consulted 05/04/2023 for concern of RCVS vs other vasculopathy as etiology of SAH. MRI Brain W/WO and MRA Brain completed 05/04: No underlying cause for SAH identified. REASON FOR CALL RN for reason of patient complaining of ringing in ears and feeling unwell ASSESSMENT On arrival, patient was in no acute distress. By report from her nursing team, patient had palpitations and ringing in ears post hydralazine administration for hypertension. At present, pt's BP and HR wnl, not requiring pressor support, awake and alert, maintaining oxygen saturation on RA, neuro exam at baseline. She remained hemodynamically stable. Given active follow-up with neurosx and neurology, we deffered to their continued management. Discussed possible slow administration of hydralazine next time with primary team at bedside. Please call AMET back with new or worsening complaints. 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 Cataract of left eye Cataracts, bilateral HTN (hypertension) Hyperlipidemia Lung nodule 06/2015 Macular degeneration DESTINY (obstructive sleep apnea) s/p pharyngoplasty no cpap Pseudophakia of right eye PAST SURGICAL HISTORY Procedure Laterality Date EXCISION CHE NEUROMA EACH x3 LASER SURGERY OF EYE 2002 correction of arterial hemmorhage left eye PAST SURGICAL HISTORY OF 1967,93 breast bx PAST SURGICAL HISTORY OF 2000 L3-5 laminectomy PAST SURGICAL HISTORY OF bilateral heal spurs PAST SURGICAL HISTORY OF Left 01/20/15 left total reverse shoulder surgery PAST SURGICAL HISTORY OF Right 09/29/15 right total reverse shoulder surgery PHARYNGOPLASTY (RECONSTRUCTION PHARYNX) 2002 d/t DESTINY REMV CATARACT EXTRACAP,INSERT LENS Right SCREENING COLONSCOPY NOT HIGH RISK 2010 TONSILLECTOMY HX 2003 TOTAL KNEE REPLACEMENT 2004 bilateral kneee PERTINENT PHYSICAL EXAM and INITIAL ASSESSMENT (For vital signs prior and during MET call, see nursing documentation) Pertinent Vital Signs at Time of MET Call: BP 160/72 Pulse 89 Temp 36.6 ?C (97.9 ?F) (Oral) Resp 17 Ht 170.2 cm (5' 7 ) Wt 86.7 kg (191 lb 2.2 oz) LMP 02/12/1990 (Within Years) SpO2 96% BMI 29.94 kg/m? Appearance: Alert and No distress Airway Patent: Yes Breathing Evaluation: Normal Circulation Evaluation: Pulses Full, bounding Neurologic Evaluation: GCS Evaluation: 4. Spontaneous, 5: Oriented 6: Obeys Motor commands Is the Level of Consciousness at Baseline: Yes Lungs: clear and decreased breath sounds Peripheral [facility] Short Right Forearm 20 Gauge (Active) No placement date or time found. Line, Drain, Airway Placed by: [facility] Type of Peripheral Line: Short Location: Right Insertion Site: Forearm Size: 20 Gauge Peripheral [facility] Short Right Hand 20 Gauge (Active) No placement date or time found. Line, Drain, Airway Placed by: [facility] Type of Peripheral Line: Short Location: Right Insertion Site: Hand Size: 20 Gauge PERTINENT DIAGNOSTICS Diagnostic Tests Reviewed: Most recent labs and imaging results. Most recent labs Most recent imaging Most recent EKG: NSR Primary Team Aware/Notified: Yes CRITICAL CARE TIME: I personally spent 30 minutes directly supervising and providing non-critical care to the patient as noted above.. I have reviewed, approved and signed the paper MET note. Please refer to this for complete orders and nursing/respiratory documentation. SIGNATURE: Osmany Goyal MD PATIENT NAME: Carly Marcelino DATE: May 05, 2023 TIME: 5:51 PM Normal [facility] Magnesium SerPl-mCncon 05-05 Magnesium [Mass/Vol] 2.1 mg/dL Normal 1.7-2.3 [facility] Comment on above: Order Comment: Speci men Type: BLOOD SPECIMENOrdering Facility: [facility] Address: [address] [place] [address] Performed By: #### 2 4323-8, 53436-1, 2777-1 ####[facility]CL[facility] [id number] [address] [place] PT panel Coag (PPP)on 2023 INR Coag (PPP) [Relative time] 1.0 {INR} Normal 0.9-1.3 [facility] Comment on above: Order Comment: Karey macdonald Type: BLOOD SPECIMENOrdering Facility: [facility] Address: [address] [place] [address] Result Comment: Jojo min K Antagonist (VKA) Therapeutic Range: INR 2 to 3 (Target INR of 2.5) Note: For patients treated with VKA drugs, such as warfarin, the [place] [employer] 2012 Guideline recommends a therapeutic INR range of 2 to 3 (target INR of 2.5). This recommendation includes high-risk patients with antiphospholipid syndrome with previous arterial or venous thromboembolism, current-generation mechanical or bioprosthetic aortic heart valve replacement. Note: Patients with mechanical aortic valve replacement and additional risk factors for thromboembolic events (atrial fibrillation, previous thromboembolism, LV dysfunction, hypercoagulable conditions) or an older generation mechanical AVR (i.e., ball in-Cage) or any mechanical MVR should have a INR therapeutic range of 2.5 to 3.5 (target INR of 3). Dakotah GH, et al. Chest 2012, 141:7S-47S Maribel RA, et al. JACC 2017, 70: 252-289 Performed By: #### 3 4528-0, 51065-5 ####[facility] [id number] [place] [id number] [place] PT Coag (PPP) [Time] 10.4 s Normal 9.7-13.0 [facility] Comment on above: Order Comment: Speci men Type: BLOOD SPECIMENOrdering Facility: [facility] Address: [address] [place] [address] Performed By: #### 3 4528-0, 94034-5 ####[facility] [id number] [address] [place] Phosphate SerPl-mCncon 05-05 Phosphate [Mass/Vol] 3.3 mg/dL Normal 2.7-4.8 [facility] Comment on above: Order Comment: Speci men Type: BLOOD SPECIMENOrdering Facility: [facility] Address: [address] [place] [address] Performed By: #### 2 4323-8, 73483-5, 2777-1 ####[facility] [id number] [address] THERAPY NTon 05-05-2023 THERAPY NT HNO ID: [id number] Author: ZULEIMA ROCKWELL OT/L Service: Occupational Therapy Author Type: Occupational Therapist Type: Therapy (PT/OT/Speech/Resp) Filed: 05/05/2023 16:24 Note Text: Occupational Therapy Evaluation Summary SERVICE DATE: 05/05/2023 SERVICE TIME: 1542 to 1608 ROOM: [address] OT 6 Clicks Score: 19 DISCHARGE RECOMMENDATIONS Home ASSESSMENT Response to Therapy Interventions: Coping Deficits, Labile Vital Signs Patient with BP 149/65 prior to OT eval. Addressing coping strategies and understanding of medical acuity; active listening provided regarding coping with CLOF. Patient reporting returning of ears ringing. BP taken and 174/79. RN notified and providing intervention at end of session. Anticipate pt will be appropriate for HOME discharge when medically appropriate. 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 Relevant Past Medical History: rotator cuff tear of both shoulders, HTN, CAD, asthma HOME LIVING Patient Lives With: Self/Alone Assistance Available: Part-Time, Other: See Comment Comments: family lives next door and nearby Entry To Home: Stairs, Ramp Number Of Stairs Into Home: 2 Number Of Stairs To Bed/Bath: 0 (has flight to second floor that she goes to at times) Tub/Shower Type: tub/shower Laundry: first floor, pt completes Equipment Owned: Cane, Grab Bars- Shower, Walker- Wheeled, Rollator PRIOR FUNCTIONAL LEVEL Within Functional Limits reports IND with ADL's and IADL's, amb with walker, keeps walker in van, uses rollator when gardening, denies falls, +driving Baseline Cognition: Oriented to self, Oriented to place, Oriented to time, Oriented to situation SUBJECTIVE I thought I was getting better yesterday and I don't feel like I am getting better today. I am not ready to leave this world. COGNITION Responsiveness: Alert, Awake Cog 6 Start of Session Total Points (Max Score = 24): 24 (05/05/23) Cog 6 End of Session Total Points (Max Score = 24): 24 (05/05/23) 4AT Score: 0 (05/05/23) Delirium Positive/Negative: Negative (05/05/23) Cognitive Activities Performed: Active listening with HEART. Reviewed positive coping strategies provided. THERAPY DIAGNOSIS Decreased activities of daily living (ADL) TREATMENT INTERVENTIONS Evaluation Skilled Treatment Time (minutes): 15 TRAINING AND EDUCATION PROVIDED Activity Adaptation/Compensatory Strategies, Altering Thinking Patterns, Stress Management, Self-Expression/Advocacy, Role of Occupational Therapy, Positioning, Patient Exercise/Therapy Program Support Needs, Meaningful Hobby/Leisure Participation, Life Roles/Routines/Habits, Insight into Deficits, Identification of Systems of Support, Health Management of Chronic Conditions, Expected Functional Level, Disease Specific Education, Discharge Planning, Coping Skills/Resiliency THERAPEUTIC SKILLS USED Activity Dosing, Behavioral Strategies, Cues for Sequencing/Proper Technique for Activity, Therapeutic Use of Self, Teach-Back for Education FUNCTIONAL STATUS Activities of Daily Living Assist Level Additional Information Feeding Modified Independent Grooming Set Up Bathing Upper Body Supervision Bathing Lower Body Moderate Assistance Dressing Upper Body Minimal Assistance Dressing Lower Body Moderate Assistance Toileting Minimal Assistance Mobility Assist Level Additional Information Bed Mobility Rolling: (Deferred OOB activity due to recent return to bed and then increased BP.) Sit to Stand Stand to Sit Bed to Chair Toilet/Commode Shower Functional Mobility GOALS Patient will demonstrate progress to optimize self-care activities, cognitive and/or coping to maximize function upon discharge. Progress Toward Goals: Progressing slower than expected Rehab Potential: Good PLAN OT Frequency: 3 Times Per Week (1) Treatment Interventions: Education, Self Care/Home Management, Energy Conservation Training, Joint Mobility, Strengthening, Balance Training, Functional Mobility Training, Neuromuscular Re-education, Pain Management, Cognitive Training, Coping Strategy Education Plan for Next Visit: (functional mobility with ADLs) SIGNATURE: Zuleima Rockwell OT/L PATIENT NAME: Carly Marcelino DATE: May 05, 2023 TIME: 4:24 PM Normal [facility] aPTT PPPon 05-05-2023 aPTT Coag (PPP) [Time] 28.9 s Normal 23.0-32.4 Cl [facility] Comment on above: Order Comment: Speci men Type: BLOOD SPECIMENOrdering Facility: [facility] Address: [address] [place] [address] Performed By: #### 3 4528-0, 39903-8 ####[facility] [id number] [address] [place] ALLIED HEALTHon 05-04-2023 ALLIED HEALTH HNO ID: [id number] Author: CHIARA SANCHEZ Chaplain Service: Healing Service Author Type: Type: Allied Health Filed: 05/04/2023 15:16 Note Text: HEALING SERVICES THERAPY NOTE SERVICE DATE: 05/04/2023 SERVICE TIME: 12:33 INTERVENTIONAL FOCUS: Emotional Support Other: Received Serious Diagnosis Visit With: Patient Urgency of Visit: Routine Type of Visit: Patient Family Not Available Patient was having a test. Follow up as circumstances allow [place] [phone] for further support. SIGNATURE: Chaplain Navi PATIENT NAME: Carly Marcelino DATE: May 04, 2023 TIME: 3:14 PM PAGER/CONTACT #: [phone] Normal [facility] Activated partial thrombopla stin time (aPTT) in platelet poor plasma by coagulation aon 05-04-2023 aPTT Coag (PPP) [Time] 28.9 s 23.0-32.4 Fi [facility] Automated urine specific gra vity by refractometryon 05-04-2023 Specific gravity Refractometry automated (U) [Rel density] 1.014 1.005-1.03 0 [facility] Basophils Auto (Bld) [#/Vol] on 05-04-2023 Basophils (Bld) [#/Vol] 0.04 10*3/uL <0.11 [facility] Basophils/100 WBC Auto (Bld) on 05-04-2023 Basophils/100 WBC (Bld) 0.6 % [facility] Bilirubin Auto test strip (U ) [Mass/Vol]on 05-04-2023 Bilirubin (U) [Mass/Vol] Negative Negative [facility] Blood manual differential co mment interpretation narrativeon 05-04-2023 Manual differential comment Girma (Bld) [Interp] Auto [facility] CASE MGT INIT ASSESon 2023 CASE MGT INIT ASS HNO ID: [id number] Author: COLEEN HOWARD RN Service: Nursing Author Type: Registered Nurse Type: Care Mgt Initial Assessment Filed: 05/04/2023 11:50 Note Text: CARE MANAGEMENT: ASSESSMENT AND DISCHARGE PLAN SERVICE DATE: May 04, 2023 SERVICE TIME: 11:42 AM PCP: Hardeep Mckenzie DO Primary Contact: Extended Emergency Contact Information Primary Emergency Contact: Hebert Alvarez Relation: Daughter Secondary Emergency Contact: Yan Rey Relation: Brother Admission Status: Inpatient Insurance Provider: MEDICARE A AND B Discharge Planning requested by: Per Department Practice Potential Transition Plans Home Advance Directives Current Advance Directive: Living Will;Other Document: See Comment (Durable Power of Plunger Scoop Operator) In Chart: Yes Up To Date and Valid: Yes Current Living Arrangements and Support Lives with: Alone (Pt states she can move in with daughter when she can no longer live alone) Type of Residence: Private Residence (House) Does the patient have to climb stairs at home?: stairs within the home;Yes (2 inside) Support: Children, Friends/neighbors, Family members How do you manage to accomplish the following: Independent: Ambulation;Bathe/Shower;Dr peter;Meals/Meal Prep;Going to the bathroom;Medication Management;Transportation to appointments/community Current Services/Equipment Current Post-Acute Service(s): DME Current DME Type: Standard walker, Other: See Comment (shower bars) Discharge Planning Patient Goal(s): Independent living, Be able to go home, General wellness [place] of Choice Explained: [place] of Choice Given: No Reason Not Given: No placements necessary Are you interested in bedside delivery of your medications? No Discharge Planning Participant(s): Patient Patient/Family Comments: Caregiver Assessment: Caregiver is ready, willing and able to meet the patient's needs as recommended by the inter-professional team: No Transport at Discharge: Transportation Arrangements: To Be Determined Needs Prior to Discharge: Needs Prior to Discharge: To Be Determined Post-Acute Discharge Plan: Per CM chart review, this is a 82F with hx of DVT (2022), Afib on plavix, eliquis, CAD (PCI of RCA 12/01), bilateral carotid stenosis, former smoker, HTN, asthma, mild pulmonary HTN, seizures who presents to the NICU as autolaunch for SAH. This is a 82 yo female who lives alone in a home in [place], [place]. Pt is independent , has 2 steps inside of home, and has no medication concerns. She does have a walker and bars inside of the home if needed. 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 She has a HCPOA , with her daughter and son listed as decision makers. She has no needs at this time, pt states she will move to daughter's home when she can no longer liver by herself. CM to follow. SIGNATURE: Coleen Howard RN PATIENT NAME: Carly Marcelino DATE: May 04, 2023 TIME: 11:42 AM CONTACT #: [phone] Normal [facility] CBC W Auto Differential pane l (Bld)on 05-04-2023 Basophils (Bld) [#/Vol] 0.04 10*3/uL Normal <0.11 [facility] Comment on above: Order Comment: Speci men Type: BLOOD SPECIMENOrdering Facility: [facility] Address: [address] [place] [address] Performed By: #### 5 7021-8 ####[facility] LABCLIA [id number] [place] [address] [place] Basophils/100 WBC (Bld) 0.6 % Normal [facility] Comment on above: Order Comment: Speci men Type: BLOOD SPECIMENOrdering Facility: [facility] Address: [address] [place] [address] Performed By: #### 5 7021-8 ####[facility] LABCLIA [id number] [place] [address] [place] Differential cell count method Nom (Bld) Auto Normal [facility] Comment on above: Order Comment: Speci men Type: BLOOD SPECIMENOrdering Facility: [facility] Address: [address] [place] [address] Performed By: #### 5 7021-8 ####[facility] LABCLIA [id number] [place] [address] [place] Eosinophils (Bld) [#/Vol] 0.12 10*3/uL Normal <0.46 [facility] Comment on above: Order Comment: Speci men Type: BLOOD SPECIMENOrdering Facility: [facility] Address: [address] [place] [address] Performed By: #### 5 7021-8 ####[facility] LABCLIA [id number] [place] [address] [place] Eosinophils/100 WBC (Bld) 1.8 % Normal [facility] Comment on above: Order Comment: Speci men Type: BLOOD SPECIMENOrdering Facility: [facility] Address: [address] [place] [address] Performed By: #### 5 7021-8 ####[facility] LABCLIA [id number] [place] [id number] [place] Erythrocyte distribution width (RBC) [Ratio] 14.2 % Normal 11.5-15.0 [facility] Comment on above: Order Comment: Speci men Type: BLOOD SPECIMENOrdering Facility: [facility] Address: [address] [place] [address] Performed By: #### 5 7021-8 ####[facility] LABCLIA [id number] [place] [address] [place] Hematocrit (Bld) [Volume fraction] 35.6 % Low 36.0-46.0 [facility] Comment on above: Order Comment: Speci men Type: BLOOD SPECIMENOrdering Facility: [facility] Address: [address] [place] [address] Performed By: #### 5 7021-8 ####[facility] LABCLIA [id number] [place] [address] [place] Hemoglobin (Bld) [Mass/Vol] 11.5 g/dL Normal 11.5-15.5 [facility] Comment on above: Order Comment: Speci men Type: BLOOD SPECIMENOrdering Facility: [facility] Address: [address] [place] [address] Performed By: #### 5 7021-8 ####[facility] LABIA [id number] [place] [address] [place] Immature granulocytes (Bld) [#/Vol] 10*3/uL Normal <0.10 [facility] Comment on above: Order Comment: Speci men Type: BLOOD SPECIMENOrdering Facility: [facility] Address: [address] [place] [address] Performed By: #### 5 7021-8 ####[facility]CLIA [id number] [place] [address] [place] Immature granulocytes/100 WBC (Bld) 0.3 % Normal [facility] Comment on above: Order Comment: Speci men Type: BLOOD SPECIMENOrdering Facility: [facility] Address: [address] [place] [address] Performed By: #### 5 7021-8 ####[facility] LABCLIA [id number] [place] [address] [place] Lymphocytes (Bld) [#/Vol] 1.43 10*3/uL Normal 1.00-4.00 [facility] Comment on above: Order Comment: Speci men Type: BLOOD SPECIMENOrdering Facility: [facility] Address: [address] [place] [address] Performed By: #### 5 7021-8 ####[facility] LABCLIA [id number] [place] [address] [place] Lymphocytes/100 WBC (Bld) 21.7 % Normal [facility] Comment on above: Order Comment: Speci men Type: BLOOD SPECIMENOrdering Facility: [facility] Address: [address] [place] [address] Performed By: #### 5 7021-8 ####[facility] LABCLIA [id number] [place] [address] [place] MCH (RBC) [Entitic mass] 29.7 pg Normal 26.0-34.0 [facility] Comment on above: Order Comment: Speci men Type: BLOOD SPECIMENOrdering Facility: [facility] Address: [address] [place] [address] Performed By: #### 5 7021-8 ####[facility] LABCLIA [id number] [place] [address] [place] MCHC (RBC) [Mass/Vol] 32.3 g/dL Normal 30.5-36.0 [facility] Comment on above: Order Comment: Speci men Type: BLOOD SPECIMENOrdering Facility: [facility] Address: [address] [place] [address] Performed By: #### 5 7021-8 ####[facility] LABCLIA [id number] [place] [address] [place] MCV (RBC) [Entitic vol] 92.0 fL Normal 80.0-100.0 [facility] Comment on above: Order Comment: Speci men Type: BLOOD SPECIMENOrdering Facility: [facility] Address: [address] [place] [address] Performed By: #### 5 7021-8 ####[facility] LABIA [id number] [place] [address] [place] Monocytes (Bld) [#/Vol] 0.60 10*3/uL Normal <0.87 [facility] Comment on above: Order Comment: Speci men Type: BLOOD SPECIMENOrdering Facility: [facility] Address: [address] [place] [address] Performed By: #### 5 7021-8 ####[facility] LABIA [id number] [place] [address] [place] Monocytes/100 WBC (Bld) 9.1 % Normal [facility] Comment on above: Order Comment: Speci men Type: BLOOD SPECIMENOrdering Facility: [facility] Address: [address] [place] [address] Performed By: #### 5 7021-8 ####[facility] LABIA [id number] [place] [address] [place] Neutrophils (Bld) [#/Vol] 4.39 10*3/uL Normal 1.45-7.50 [facility] Comment on above: Order Comment: Speci men Type: BLOOD SPECIMENOrdering Facility: [facility] Address: [address] [place] [address] Performed By: #### 5 7021-8 ####[facility] LABCLIA [id number] [place] [address] [place] Neutrophils/100 WBC (Bld) 66.5 % Normal [facility] Comment on above: Order Comment: Speci men Type: BLOOD SPECIMENOrdering Facility: [facility] Address: [address] [place] [address] Performed By: #### 5 7021-8 ####[facility]CLIA [id number] [place] [address] [place] Nucleated RBC (Bld) [#/Vol] 10*3/uL Normal <0.01 [facility] Comment on above: Order Comment: Speci men Type: BLOOD SPECIMENOrdering Facility: [facility] Address: [address] [place] [address] Performed By: #### 5 7021-8 ####[facility] LABCLIA [id number] [place] [address] [place] Nucleated RBC/100 WBC (Bld) [Ratio] 0.0 /100 WBC Normal [facility] Comment on above: Order Comment: Speci men Type: BLOOD SPECIMENOrdering Facility: [facility] Address: [address] [place] [address] Performed By: #### 5 7021-8 ####[facility] LABCLIA [id number] [place] [address] [place] Platelet mean volume (Bld) [Entitic vol] 9.4 fL Normal 9.0-12.7 [facility] Comment on above: Order Comment: Speci men Type: BLOOD SPECIMENOrdering Facility: [facility] Address: [address] [place] [address] Performed By: #### 5 7021-8 ####[facility] LABIA [id number] [place] [address] [place] Platelets (Bld) [#/Vol] 177 10*3/uL Normal 150-400 [facility] Comment on above: Order Comment: Speci men Type: BLOOD SPECIMENOrdering Facility: [facility] Address: [address] [place] [address] Performed By: #### 5 7021-8 ####[facility] LABIA [id number] [place] [address] [place] RBC (Bld) [#/Vol] 3.87 10*6/uL Low 3.90-5.20 [facility] Comment on above: Order Comment: Speci men Type: BLOOD SPECIMENOrdering Facility: [facility] Address: [address] [place] [address] Performed By: #### 5 7021-8 ####[facility] LABIA [id number] [place] [id number] [place] WBC (Bld) [#/Vol] 6.60 10*3/uL Normal 3.70-11.00 [facility] Comment on above: Order Comment: Speci men Type: BLOOD SPECIMENOrdering Facility: [facility] Address: [address] [place] [address] Performed By: #### 5 7021-8 ####[facility] LABIA [id number] [place] [address] [place] CONSULTon 05-04-2023 CONSULT HNO ID: [id number] Author: KRISSY HAMEED MD Service: Neurology Stroke Author Type: Physician Type: Consults Filed: 05/04/2023 12:17 Note Text: NEURO STROKE INITIAL CONSULT SERVICE DATE: 05/04/2023 SERVICE TIME: 11:25 AM REQUESTING PHYSICIAN: Jass Penn MD [[id number]] PCP: Hardeep Mckenzie DO REASON FOR STROKE EVALUATION: Headache, R Frontal SAH Subjective HPI: Ms. 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 Stroke Neurology consulted 05/04/2023 for concern of RCVS vs other vasculopathy as etiology of SAH. Patient initially presented to [facility] ED 04/20/2023 for evaluation of worst headache of life (awakening her from sleep, no history of prior headaches) in the setting of multiple stressors (loss of son, daughter diagnosed breast cancer, having to. Multiple family members that required). Patient without headache the night prior but woke up with the worst headache of her life and took a nitro. This headache was not associated with nausea, vomiting, or loss of consciousness. Patient at that time without any weakness, nausea/vomiting, paresthesias. Headache improved to 5/10 with symptomatic management and ultimately discharged home. Patient presented again to [facility] 05/03/2023 for evaluation of new onset vision changes/weakness and hypertension (SBP 250s) with workup revealing right frontal SAH. Patient was eating breakfast, taking her daily medications which explain sudden onset fatigue and blurry vision and, when checking her blood pressure and noticed SBP up to 250s prompting her to present to the ED. Patient was treated with multiple antihypertensives, given Andexxa for DOAC reversal and transferred to [facility] for further management. AED therapy deferred due to low concern for seizures. On speaking to the patient today, endorsing 3 separate episodes of 10/10 headache with headache which repeat in less than 1 minutes. Denies prior history of headache. Says headaches may be started after her PCP started her on losartan for blood pressure control. Does note that SBP has been high even on the days preceding this presentation, sometimes up to the 200s. Does report chronic decreased vision in left eye, but was concerned when she started having blurry vision in her right eye (without visual loss) as she enjoys reading and looking at sunsets. Urine toxicology and CRP negative. LDL 58. 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 Cataract of left eye Cataracts, bilateral HTN (hypertension) Hyperlipidemia Lung nodule 06/2015 Macular degeneration DESTINY (obstructive sleep apnea) s/p pharyngoplasty no cpap Pseudophakia of right eye PAST SURGICAL HISTORY Procedure Laterality Date EXCISION CHE NEUROMA EACH x3 LASER SURGERY OF EYE 2002 correction of arterial hemmorhage left eye PAST SURGICAL HISTORY OF 1968,93 breast bx PAST SURGICAL HISTORY OF 2000 L3-5 laminectomy PAST SURGICAL HISTORY OF bilateral heal spurs PAST SURGICAL HISTORY OF Left 01/20/15 left total reverse shoulder surgery PAST SURGICAL HISTORY OF Right 09/29/15 right total reverse shoulder surgery PHARYNGOPLASTY (RECONSTRUCTION PHARYNX) 2002 d/t DESTINY REMV CATARACT EXTRACAP,INSERT LENS Right SCREENING COLONSCOPY NOT HIGH RISK 2010 TONSILLECTOMY HX 2003 TOTAL KNEE REPLACEMENT 2004 bilateral kneee Social History Tobacco Use Smoking status: Former Packs/day: 0.50 Years: 10.00 Additional pack years: 0.00 Total pack years: 5.00 Types: Cigarettes Quit date: 1976 Years since quittin.1 Smokeless tobacco: Never Vaping Use Vaping Use: Never used Substance Use Topics Alcohol use: Yes Comment: socially wine, beer Drug use: No Comment: denies tx for drug/alcohol abuse in the past. FAMILY HISTORY Problem Relation Age of Onset Breast Cancer Mother with mets Cataract Mother Cancer Father prostate with bone mets Cataract Father Cancer Brother colon; survivor x 10 yrs thus far. doing well Cataract Brother No Ocular Disease No Family History nothing known of ALLERGIES Allergen Reactions Hydantoins Anaphylaxis throat swells ,hives Phenytoin Anaphylaxis Adhesive Tape (Callei* Rash Carbamazepine Itching Tegretal caused itching Divalproex Sodium Intolerance Fine motor tremors Dulera [Mometasone-* Intolerance Falls Valproic Acid Analo* tremors Amlodip (more content not included)... Normal [facility] CT BRAIN WO IVCONon 05-04-19 CT BRAIN WO IVCON * * *Final Report* * * DATE OF EXAM: May 04 2023 6:58PM [facility] [place]RAIN [place] IVCON / PROCEDURE REASON: Stroke, follow up * * * * Physician Interpretation * * * * EXAMINATION: CT BRAIN WO IVCON CLINICAL HISTORY: Stroke, follow up TECHNIQUE: Serial axial images without IV contrast were obtained from the vertex to the foramen magnum. MQ: [id number]_3 CT Radiation dose: Integrated Dose-Length Product (DLP) for this visit = 992 mGy*cm CT Dose Reduction Employed: No dose reduction techniques were required COMPARISON: Concurrent MRI brain 05/04/2023, outside hospital CT head 05/03/2023 RESULT: Sponge Maker (topogram) images: No additional findings. Post-operative change: None. Acute change: No evidence of an acute infarct. Hemorrhage: High attenuation material overlying the lateral RIGHT frontal lobe along the precentral sulcus in keeping with subarachnoid hemorrhage and not significantly changed in appearance from prior CT head 05/03/2023 when accounting for differences in technique. No other evidence of new or progressive intracranial hemorrhage. ECASS hemorrhagic transformation score: Not Applicable Mass Lesion / Mass Effect: There is no evidence of an intracranial mass or extraaxial fluid collection. No significant mass effect. Chronic change: Scattered patchy foci of low attenuation are present within supratentorial white matter which is a nonspecific finding but likely represents mild microvascular ischemia. Parenchyma: There is mild generalized volume loss. Ventricles: Ventricular enlargement concordant with the degree of parenchymal volume loss. Paranasal sinuses and skull base: The visualized paranasal sinuses are grossly clear. The skull base and imaged soft tissues are unremarkable. Right-sided pseudophakia. Otherwise, orbits appear unremarkable. Mild degenerative changes of the bilateral TMJs. IMPRESSION: Grossly stable appearance of RIGHT frontal subarachnoid hemorrhage, not significantly changed from 05/03/2023 when accounting for differences in technique. No other significant interval change. Pulp Drier: [facility] Transcribe Date/Time: May 04 2023 7:13P Dictated by : MERCEDES ALDANA MD This examination was interpreted and the report reviewed and electronically signed by: MERCEDES ALDANA MD on May 04 2023 7:19PM EST [id number] Normal [facility] Calcium.ionized [Moles/Vol]o n 05-04-2023 Calcium.ionized (Bld) [Mass/Vol] 1.18 mmol/L Normal 1.08-1.30 [facility] Comment on above: Order Comment: Speci men Type: BLOOD SPECIMENOrdering Facility: [facility] Address: [address] [place] [address] Performed By: #### 1 995-0 ####[facility] LABCLIA [id number] [place] [address] [place] Calcium.ionized adjusted to pH 7.4 (Bld) [Moles/Vol] 1.20 mmol/L Normal 1.08-1.30 [facility] Comment on above: Order Comment: Speci men Type: BLOOD SPECIMENOrdering Facility: [facility] Address: [address] [place] [address] Performed By: #### 1 995-0 ####[facility] LABCLIA [id number] [address] [address] [place] Cannabinoids [Mass/volume] i n Urine by Confirmatory methodon 05-04-2023 Cannabinoids Confirm (U) [Mass/Vol] Negative Negative [facility] Comment on above: Cutoff threshold at 50 ng/mL. Color Auto (U)on 05-04-2023 Color (U) Yellow Yellow [facility] Comprehensive metabolic 2000 panelon 05-04-2023 Albumin [Mass/Vol] 3.5 g/dL Low 3.9-4.9 [facility] Comment on above: Order Comment: Speci men Type: BLOOD SPECIMENOrdering Facility: [facility] Address: [address] [place] [address] Performed By: #### 2 777-1, 66082-1, ####[facility] LABCLIA [id number] [place] [address] [place] ALP [Catalytic activity/Vol] 52 U/L Normal 34-123 [facility] Comment on above: Order Comment: Speci men Type: BLOOD SPECIMENOrdering Facility: [facility] Address: [address] [place] [address] Performed By: #### 2 777-1, 39203-1, ####[facility] LABCLIA [id number] [place] [id number] [place] ALT [Catalytic activity/Vol] 11 U/L Normal 7-38 [facility] Comment on above: Order Comment: Speci men Type: BLOOD SPECIMENOrdering Facility: [facility] Address: [address] [place] [address] Performed By: #### 2 777-1, 97021-7, ####[facility] LABCLIA [id number] [facility] [address] [address] [place] Anion gap [Moles/Vol] 9 mmol/L Normal 9-18 [facility] Comment on above: Order Comment: Speci men Type: BLOOD SPECIMENOrdering Facility: [facility] Address: [address] [place] [address] Performed By: #### 2 777-1, 51575-4, ####[facility] LABCLIA [id number] [address] [address] [place] AST [Catalytic activity/Vol] 18 U/L Normal 13-35 [facility] Comment on above: Order Comment: Speci men Type: BLOOD SPECIMENOrdering Facility: [facility] Address: [address] [place] [address] Performed By: #### 2 777-1, 76673-4, ####[facility] LABCLIA [id number] [place] [id number] [place] Bilirubin [Mass/Vol] 0.2 mg/dL Normal 0.2-1.3 [facility] Comment on above: Order Comment: Speci men Type: BLOOD SPECIMENOrdering Facility: [facility] Address: [address] [place] [address] Performed By: #### 2 777-1, 57096-4, ####[facility] LABCLIA [id number] [facility] [address] [address] [place] Calcium [Mass/Vol] 9.1 mg/dL Normal 8.5-10.2 [facility] Comment on above: Order Comment: Speci men Type: BLOOD SPECIMENOrdering Facility: [facility] Address: [address] [place] [address] Performed By: #### 2 777-1, 40387-3, ####[facility] LABCLIA [id number] [place] [address] [place] Chloride [Moles/Vol] 107 mmol/L High 97-105 [facility] Comment on above: Order Comment: Speci men Type: BLOOD SPECIMENOrdering Facility: [facility] Address: [address] [place] [address] Performed By: #### 2 777-1, 48193-2, 00200-6 ####[facility] LABCLIA [id number] [place] [address] [place] CO2 [Moles/Vol] 26 mmol/L Normal 22-30 [facility] Comment on above: Order Comment: Speci men Type: BLOOD SPECIMENOrdering Facility: [facility] Address: [address] [place] [address] Performed By: #### 2 777-1, 03003-4, 93729-1 ####[facility] LABCLIA [id number] [place] [address] [place] Creatinine [Mass/Vol] 0.94 mg/dL Normal 0.58-0.96 [facility] Comment on above: Order Comment: Speci men Type: BLOOD SPECIMENOrdering Facility: [facility] Address: [address] [place] [address] Performed By: #### 2 777-1, 03763-6, 05682-6 ####[facility] LABIA [id number] [place] [address] [place] Creatinine and Glomerular filtration rate.predicted panel (S/P/Bld) 60 mL/min/1.73m??? Normal >=60 [facility] Comment on above: Order Comment: Speci men Type: BLOOD SPECIMENOrdering Facility: [facility] Address: [address] [place] [address] Result Comment: Colleen mated Glomerular Filtration Rate (eGFR) is calculated using the 2020 CKD-EPI creatinine equation. This equation utilizes serum creatinine, sex, and age as parameters. The creatinine assay has traceable calibration to isotope dilution-mass spectrometry. Refer to KDIGO guidelines for clinical interpretation. In patients with unstable renal function, e.g. those with acute kidney injury, the eGFR may not accurately reflect actual GFR. Performed By: #### 2 777-1, , ####[facility] LABCLIA [id number] [address] [address] [place] Glucose [Mass/Vol] 97 mg/dL Normal 74-99 [facility] Comment on above: Order Comment: Karey macdonald Type: BLOOD SPECIMENOrdering Facility: [facility] Address: [address] [place] [address] Result Comment: The [place] [employer] (ADA) provides guidance for cutoff values for fasting glucose and random glucose. The ADA defines fasting as no caloric intake for at least 8 hours. Fasting plasma glucose results between 100 to 125 mg/dL indicate increased risk for diabetes (prediabetes). Fasting plasma glucose results greater than or equal to 126 mg/dL meet the criteria for diagnosis of diabetes. In the absence of unequivocal hyperglycemia, results should be confirmed by repeat testing. In a patient with classic symptoms of hyperglycemia or hyperglycemic crisis, random plasma glucose results greater than or equal to 200 mg/dL meet the criteria for diagnosis of diabetes. Reference: Standards of Medical Care in Diabetes 2016, [place] [employer]. Diabetes Care. 2016.39(Suppl 1). Performed By: #### 2 777-1, , ####[facility] LABCLIA [id number] [address] [address] [place] Potassium [Moles/Vol] 4.0 mmol/L Normal 3.7-5.1 [facility] [facility] Comment on above: Order Comment: Karey macdonald Type: BLOOD SPECIMENOrdering Facility: [facility] Address: [address] [place] [address] Performed By: #### 2 777-1, , ####[facility] LABCLIA [id number] [address] [address] [place] Protein [Mass/Vol] 5.8 g/dL Low 6.3-8.0 [facility] Comment on above: Order Comment: Speci men Type: BLOOD SPECIMENOrdering Facility: [facility] Address: [address] [place] [address] Performed By: #### 2 777-1, , ####[facility] LABCLIA [id number] [place] [address] [place] Sodium [Moles/Vol] 142 mmol/L Normal 136-144 [facility] Comment on above: Order Comment: Speci men Type: BLOOD SPECIMENOrdering Facility: [facility] Address: [address] [place] [address] Performed By: #### 2 777-1, , ####[facility] LABCLIA [id number] [place] [address] [place] Urea nitrogen [Mass/Vol] 18 mg/dL Normal 7-21 [facility] Comment on above: Order Comment: Speci men Type: BLOOD SPECIMENOrdering Facility: [facility] Address: [address] [place] [address] Performed By: #### 2 777-1, , ####[facility] LABCLIA [id number] [place] [address] [place] ECHO WITH AGITATED SALINE CO NTRASTon 05-04-2023 ECHO WITH AGITATED SALINE CONTRAST Echocardiography Report: Transthoracic Echo [facility] Bedside Date of service: 05/04/2023 9:07:11 AM PILOT Ordering physician: ANNETTA SHARPE Indication: Hypertensive heart disease Symptom(s): Shortness of breath Technologist: Rima Germain Interpreting physician: Jillian Izquierdo MD PATIENT: Name: MRS. CARLY MARCELINO : 1940 Age: 82 years Gender: F History of hypertension, coronary artery disease and dyslipidemia. Previous cardiovascular interventions: PCI (11/2021) Primary rhythm: sinus. Height: 170.20 cm BSA: 2.07 m Weight: 90.72 kg BMI: 31.3 kg/m Heart rate 68 bpm Blood pressure 126/58 mmHg Agitated saline was administered to rule out shunt. Color Doppler was utilized to interrogate the cardiac valves assessed and spectral Doppler was utilized to determine the flow velocities and pressure gradients reported in this exam. MEASUREMENTS: Value Indexed Normal Max aortic dimension 3.0 cm Ao < 3.8 Left atrial volume 85 ml (biplane A-L) 41 ml/m Cyndi <= 34 LV ID (diastole) 4.5 cm (2D) 2.17 cm/m LV ID (systole) 2.3 cm (2D) 1.11 cm/m IVS, leaflet tips 0.9 cm (2D) Posterior wall thickness 0.9 cm (2D) Left ventricular mass 133 g (2D) 64 g/m LV stroke volume 50 ml (2D biplane) LV end diastolic volume 87 ml (2D biplane) 42.1 ml/m 29<=EDVi<62 LV end systolic volume 37 ml (2D biplane) 17.8 ml/m Ejection Fraction 58 % (2D biplane) EF > 54 FINDINGS: LEFT VENTRICLE The left ventricle is normal in size. Left ventricular systolic function is normal. Grade I left ventricular diastolic dysfunction. Mitral annular lateral E/e': 9.4. Mitral annular septal E/e': 14.3. Wall Motion: All scored segments are normal. RIGHT VENTRICLE The right ventricle is normal in size. Right ventricular systolic function is normal. RV systolic tissue Doppler velocity is 20.0 cm/s. Tricuspid annular displacement is 2.4 cm. Estimated right ventricular systolic pressure is 44 mmHg consistent with mild pulmonary hypertension. Estimated right atrial pressure is 8 mmHg based on IVC assessment. LEFT ATRIUM The left atrial cavity is mildly dilated. Pulmonary Veins: The pulmonary venous pattern showed normal systolic flow. RIGHT ATRIUM The right atrial cavity is normal in size. Inferior Vena Cava: The inferior vena cava appears dilated measuring 2.2 cm. The vessel decreases greater than 50 percent with inspiration. MITRAL VALVE The pressure half time is 71 msec. The peak mitral E/A ratio is 0.75. The average mitral E/e' ratio is 11.9. The mitral flow deceleration time is 246 msec. TRICUSPID VALVE There is mild (1+) tricuspid valve regurgitation. There is no thickening. The hepatic venous pattern showed normal systolic flow. AORTIC VALVE There is trace aortic valve regurgitation. Tricuspid aortic valve. There is no thickening. The LVOT diameter is 1.8 cm. PULMONIC VALVE There is trace pulmonic valve regurgitation. There is no thickening. AORTA The visualized aorta is normal in size. Measurements - Sinus: 2.7 cm. Mid ascending aorta 3.0 cm. INTERATRIAL SEPTUM There is evidence of intracardiac shunting as detected by agitated saline contrast with valsalva. INTERVENTRICULAR SEPTUM There is no flow through the interventricular septum as detected by Doppler. PERICARDIUM There is no pericardial effusion. CONCLUSIONS: - Exam indication: Hypertensive heart disease - The left ventricle is normal in size. Left ventricular systolic function is normal. EF = 58 5% (2D biplane) Grade I left ventricular diastolic dysfunction. - The right ventricle is normal in size. Right ventricular systolic function is normal. - The left atrial cavity is mildly dilated. - Estimated right ventricular systolic pressure is 44 mmHg consistent with mild pulmonary hypertension. Estimated right atrial pressure is 8 mmHg based on IVC assessment. - Positive agitated saline study performed in clip #85. - The patient has not had a prior CC echocardiographic exam for comparison. * * * Final * * * CC [email or web address] Medical Image : [id number] Normal [facility] Eosinophils/100 WBC Auto (Bl d)on 05-04-2023 Eosinophils/100 WBC (Bld) 2.5 % [facility] Erythrocyte distribution wid th Auto (RBC) [Ratio]on 05-04-2023 Erythrocyte distribution width (RBC) [Ratio] 14.1 % 11.5-15.0 [facility] Ethanol [Mass/volume] in Uri neon 05-04-2023 Ethanol (U) [Mass/Vol] <11 mg/dL <11 [facility]ematocrit Auto (Bld) [Volum e fraction]on 05-04-2023 Hematocrit (Bld) [Volume fraction] 36.2 % 36.0-46.0 [facility] Hemoglobin [Mass/volume] in Bloodon 05-04-2023 Hemoglobin (Bld) [Mass/Vol] 11.7 g/dL 11.5-15.5 [facility] INR in Platelet poor plasma by Coagulation assayon 05-04-2023 INR Coag (PPP) [Relative time] 1.0 {INR} 0.9-1.3 [facility] Comment on above: Vitamin K Antagonist (VKA) Therapeutic Range: INR 2 to 3 (Target INR of 2.5)Note: For patients treated with VKA drugs, such as warfarin, the [place] [employer] 2012 Guideline recommends a therapeutic INR range of 2 to 3 (target INR of 2.5). This recommendation includes high-risk patients with antiphospholipid syndrome with previous arterial or venous thromboembolism, current-generation mechanical or bioprosthetic aortic heart valve replacement.Note: Patients with mechanical aortic valve replacement and additional risk factors for thromboembolic events (atrial fibrillation, previous thromboembolism, LV dysfunction, hypercoagulable conditions) or an older generation mechanical AVR (i.e., ball in-Cage) or any mechanical MVR should have a INR therapeutic range of 2.5 to 3.5 (target INR of 3).Dakotah GH, et al. Chest 2012, 141:7S-47SNishimdavon RA, et al. JACC 2017, 70: 252-289 Ketones Auto test strip (U) [Mass/Vol]on 05-04-2023 Ketones (U) [Mass/Vol] Negative Negative Fi [facility] Laboratory - Chemistry and C hemistry - challengeon 05-04-2023 Albumin [Mass/Vol] 3.4 g/dL 3.9-4.9 [facility] ALP [Catalytic activity/Vol] 55 U/L 34-123 [facility] ALT [Catalytic activity/Vol] 6 U/L 7-38 [facility] AST [Catalytic activity/Vol] 15 U/L 13-35 [facility] Bilirubin [Mass/Vol] 0.2 mg/dL 0.2-1.3 [facility] Calcium [Mass/Vol] 9.5 mg/dL 8.5-10.2 [facility] Chloride [Moles/Vol] 102 mmol/L 97-105 [facility] CO2 [Moles/Vol] 24 mmol/L 22-30 [facility] Creatinine [Mass/Vol] 0.78 mg/dL 0.58-0.96 [facility] Glucose [Mass/Vol] 96 mg/dL 74-99 [facility] Comment on above: The [place] [employer] (ADA) provides guidance for cutoff values for fasting glucose and random glucose. The ADA defines fasting as no caloric intake for at least 8 hours. Fasting plasma glucose results between 100 to 125 mg/dL indicate increased risk for diabetes (prediabetes).Fasting plasma glucose results greater than or equal to 126 mg/dL meet the criteria for diagnosis of diabetes. In the absence of unequivocal hyperglycemia, results should be confirmed by repeat testing. In a patient with classic symptoms of hyperglycemia or hyperglycemic crisis, random plasma glucose results greater than or equal to 200 mg/dL meet the criteria for diagnosis of diabetes.Reference: Standards of Medical Care in Diabetes 2016, [place] [employer]. Diabetes Care. 2016.39(Suppl 1). Magnesium [Mass/Vol] 2.1 mg/dL 1.7-2.3 [facility] Potassium [Moles/Vol] 4.1 mmol/L 3.7-5.1 [facility] Protein [Mass/Vol] 6.1 g/dL 6.3-8.0 [facility] Sodium [Moles/Vol] 137 mmol/L 136-144 [facility] Urea nitrogen [Mass/Vol] 13 mg/dL 7-21 [facility] Laboratory - Drug toxicology on 05-04-2023 Amphetamines Ql (U) Negative Negative [facility] Comment on above: Cutoff threshold at 1000 ng/mL. Benzodiazepines Ql (U) Negative Negative [facility] Comment on above: Cutoff threshold at 200 ng/mL. Cocaine Ql (U) Negative Negative [facility] Comment on above: Cutoff threshold at 300 ng/mL. Opiates Ql (U) Negative Negative [facility] Comment on above: Cutoff threshold at 300 ng/mL. Phencyclidine Ql (U) Negative Negative [facility] Comment on above: Cutoff threshold at 25 ng/mL. Laboratory - Hematology and Cell countson 05-04-2023 Eosinophils (Bld) [#/Vol] 0.18 10*3/uL <0.46 [facility] Immature granulocytes/100 WBC (Bld) 0.3 % [facility] Leukocytes [#/volume] correc jamila for nucleated erythrocytes in Blood by Automated counon 05-04-2023 WBC corrected for nucl RBC Auto (Bld) [#/Vol] 7.12 k/uL 3.70-11.00 [facility] Lymphocytes Auto (Bld) [#/Vo l]on 05-04-2023 Lymphocytes (Bld) [#/Vol] 1.46 10*3/uL 1.00-4.00 [facility] Lymphocytes/100 WBC Auto (Bl d)on 05-04-2023 Lymphocytes/100 WBC (Bld) 20.5 % [facility] MCH Auto (RBC) [Entitic mass ]on 05-04-2023 MCH (RBC) [Entitic mass] 29.8 pg 26.0-34.0 [facility] MCHC Auto (RBC) [Mass/Vol]on 05-04-2023 MCHC (RBC) [Mass/Vol] 32.3 g/dL 30.5-36.0 [facility] MCV Auto (RBC) [Entitic vol] on 05-04-2023 MCV (RBC) [Entitic vol] 92.3 fL 80.0-100.0 [facility] MRA BRAIN WO IVCONon 024 MRA BRAIN WO IVCON * * *Final Report* * * DATE OF EXAM: May 04 2023 12:48PM QBM [id number] - MRA BRAIN WO IVCON / PROCEDURE REASON: Subarachnoid hemorrhage (SAH), follow up * * * * Physician Interpretation * * * * EXAMINATION: MRA BRAIN WO IVCON, MRI BRAIN WO/W IVCON, MRI CERVICAL SPINE WO/W IVCON CLINICAL HISTORY: TECHNIQUE: Routine noncontrast MRI brain protocol including diffusion and gradient echo images. Intracranial 3D [id number]-[id number] MRA with post-processing performed at the modality and 2D multiplanar and 3D maximum intensity projections were created, reviewed and archived. MQ: MRAB_4 COMPARISON: Head CT 05/03/2023 RESULT: BRAIN: Acute Change: There is no evidence of restricted diffusion to suggest an acute infarct. Hemorrhage: Small amount of susceptibility change right frontal sulci corresponding to the subarachnoid hemorrhage seen on the recent head CT. Mass Lesion/ Mass Effect: No evidence of an intracranial mass or extra-axial fluid collection. No significant mass effect. Chronic Change: Scattered patchy and confluent areas of increased T2 and FLAIR signal are present in the supratentorial white matter which is nonspecific but likely represents chronic microvascular ischemia. Parenchyma: There is mild generalized parenchymal volume loss. The brain parenchyma is otherwise within normal limits of signal intensity and morphology. Ventricles: Ventriculomegaly corresponds to the degree of parenchymal volume loss. Skull Base: Hypothalamic and pituitary region are grossly normal. Craniocervical junction is normal. No significant marrow replacement process. Vasculature: Major intracranial arterial structures, and dural venous sinuses show typical flow void, suggesting patency by spin echo criteria. Other: The visualized paranasal sinuses and mastoid air cells are clear. The orbits and extracranial soft tissues are unremarkable. INTRACRANIAL MRA: Distal ICAs, proximal MCAs and ACAs are patent and within normal limits. Intracranial vertebral arteries, the basilar artery, and the slate mixer are normal. No evidence of hemodynamically significant large vessel intracranial stenosis or aneurysm. There is some motion degrading several of the slabs limiting distal vessel evaluation. The intracranial vertebral arteries and the basilar artery are moderately tortuous. The majority of the subarachnoid hemorrhage is superior to the mfirn-xw-nrtp of the MR angiography, but no abnormality that could account for subarachnoid hemorrhage is identified on MRA. Cervical spine: Counting reference: Craniocervical junction. Cervical vertebral bodies maintain normal height and alignment. No evidence of a destructive osseous process or marrow replacing lesion. Axial gradient echo imaging is degraded by motion limiting detailed foraminal evaluation. At C2-3 the canal and foramina are patent. At C3-4, there is disc height loss and endplate hypertrophy moderately narrowing the canal, but the foramina appear patent. At C4-5, there is disc height loss and endplate hypertrophy with mild canal narrowing. Moderate left and mild right foraminal narrowing suspected based on uncinate hypertrophic changes. At C5-6, there is disc height loss and endplate hypertrophy. Mild right and moderate left foraminal narrowing from facet and uncinate degenerative change. At C6-7, there is disc height loss and endplate hypertrophy with moderate canal narrowing. Foramina are mildly narrowed secondary to uncinate hypertrophy. C7-T1, the canal and foramina are patent.. There is no abnormal cervical spine enhancement following contrast administration. IMPRESSION: Right frontal subarachnoid hemorrhage unchanged from prior CT within the constraints of differing modalities. No cause for subarachnoid hemorrhage is identified on this examination. Patent intracranial circulation. Microvascular ischemic change and volume loss. Cervical spondylosis detailed in the body of the report. Craniocervical junction is the counting reference for the cervical spine exam. Pulp Drier: ZENIA Transcribe Date/Time: May 04 2023 1:02P Dictated by : VILLA ALARCON MD This examination was interpreted and the report reviewed and electronically signed by: VILLA ALARCON MD on May 04 2023 1:14PM EST [id number] Normal [facility] MRI BRAIN WO/W IVCONon 05-04 MRI BRAIN WO/W IVCON * * *Final Report* * * DATE OF EXAM: May 04 2023 12:48PM QBM [id number] - MRI BRAIN WO/W IVCON / PROCEDURE REASON: Stroke, follow up * * * * Physician Interpretation * * * * EXAMINATION: MRA BRAIN WO IVCON, MRI BRAIN WO/W IVCON, MRI CERVICAL SPINE WO/W IVCON CLINICAL HISTORY: TECHNIQUE: Routine noncontrast MRI brain protocol including diffusion and gradient echo images. Intracranial 3D [id number]-hb-ykhxvb MRA with post-processing performed at the modality and 2D multiplanar and 3D maximum intensity projections were created, reviewed and archived. MQ: MRAB_4 COMPARISON: Head CT 05/03/2023 RESULT: BRAIN: Acute Change: There is no evidence of restricted diffusion to suggest an acute infarct. Hemorrhage: Small amount of susceptibility change right frontal sulci corresponding to the subarachnoid hemorrhage seen on the recent head CT. Mass Lesion/ Mass Effect: No evidence of an intracranial mass or extra-axial fluid collection. No significant mass effect. Chronic Change: Scattered patchy and confluent areas of increased T2 and FLAIR signal are present in the supratentorial white matter which is nonspecific but likely represents chronic microvascular ischemia. Parenchyma: There is mild generalized parenchymal volume loss. The brain parenchyma is otherwise within normal limits of signal intensity and morphology. Ventricles: Ventriculomegaly corresponds to the degree of parenchymal volume loss. Skull Base: Hypothalamic and pituitary region are grossly normal. Craniocervical junction is normal. No significant marrow replacement process. Vasculature: Major intracranial arterial structures, and dural venous sinuses show typical flow void, suggesting patency by spin echo criteria. Other: The visualized paranasal sinuses and mastoid air cells are clear. The orbits and extracranial soft tissues are unremarkable. INTRACRANIAL MRA: Distal ICAs, proximal MCAs and ACAs are patent and within normal limits. Intracranial vertebral arteries, the basilar artery, and the slate mixer are normal. No evidence of hemodynamically significant large vessel intracranial stenosis or aneurysm. There is some motion degrading several of the slabs limiting distal vessel evaluation. The intracranial vertebral arteries and the basilar artery are moderately tortuous. The majority of the subarachnoid hemorrhage is superior to the ajkml-rj-xorj of the MR angiography, but no abnormality that could account for subarachnoid hemorrhage is identified on MRA. Cervical spine: Counting reference: Craniocervical junction. Cervical vertebral bodies maintain normal height and alignment. No evidence of a destructive osseous process or marrow replacing lesion. Axial gradient echo imaging is degraded by motion limiting detailed foraminal evaluation. At C2-3 the canal and foramina are patent. At C3-4, there is disc height loss and endplate hypertrophy moderately narrowing the canal, but the foramina appear patent. At C4-5, there is disc height loss and endplate hypertrophy with mild canal narrowing. Moderate left and mild right foraminal narrowing suspected based on uncinate hypertrophic changes. At C5-6, there is disc height loss and endplate hypertrophy. Mild right and moderate left foraminal narrowing from facet and uncinate degenerative change. At C6-7, there is disc height loss and endplate hypertrophy with moderate canal narrowing. Foramina are mildly narrowed secondary to uncinate hypertrophy. C7-T1, the canal and foramina are patent.. There is no abnormal cervical spine enhancement following contrast administration. IMPRESSION: Right frontal subarachnoid hemorrhage unchanged from prior CT within the constraints of differing modalities. No cause for subarachnoid hemorrhage is identified on this examination. Patent intracranial circulation. Microvascular ischemic change and volume loss. Cervical spondylosis detailed in the body of the report. Craniocervical junction is the counting reference for the cervical spine exam. Pulp Drier: PSCB Transcribe Date/Time: May 04 2023 1:02P Dictated by : VILLA ALARCON MD This examination was interpreted and the report reviewed and electronically signed by: VILLA ALARCON MD on May 04 2023 1:14PM EST [id number] Normal [facility] MRI CERVICAL SPINE WO/W IVCO Non 05-04-2023 MRI CERVICAL SPINE WO/W IVCON * * *Final Report* * * DATE OF EXAM: May 04 2023 12:48PM QBM [id number] - MRI CERVICAL SPINE WO/W IVCON / PROCEDURE REASON: AVM, cerebral * * * * Physician Interpretation * * * * EXAMINATION: MRA BRAIN WO IVCON, MRI BRAIN WO/W IVCON, MRI CERVICAL SPINE WO/W IVCON CLINICAL HISTORY: TECHNIQUE: Routine noncontrast MRI brain protocol including diffusion and gradient echo images. Intracranial 3D oueb-nq-oerydc MRA with post-processing performed at the modality and 2D multiplanar and 3D maximum intensity projections were created, reviewed and archived. MQ: MRAB_4 COMPARISON: Head CT 05/03/2023 RESULT: BRAIN: Acute Change: There is no evidence of restricted diffusion to suggest an acute infarct. Hemorrhage: Small amount of susceptibility change right frontal sulci corresponding to the subarachnoid hemorrhage seen on the recent head CT. Mass Lesion/ Mass Effect: No evidence of an intracranial mass or extra-axial fluid collection. No significant mass effect. Chronic Change: Scattered patchy and confluent areas of increased T2 and FLAIR signal are present in the supratentorial white matter which is nonspecific but likely represents chronic microvascular ischemia. Parenchyma: There is mild generalized parenchymal volume loss. The brain parenchyma is otherwise within normal limits of signal intensity and morphology. Ventricles: Ventriculomegaly corresponds to the degree of parenchymal volume loss. Skull Base: Hypothalamic and pituitary region are grossly normal. Craniocervical junction is normal. No significant marrow replacement process. Vasculature: Major intracranial arterial structures, and dural venous sinuses show typical flow void, suggesting patency by spin echo criteria. Other: The visualized paranasal sinuses and mastoid air cells are clear. The orbits and extracranial soft tissues are unremarkable. INTRACRANIAL MRA: Distal ICAs, proximal MCAs and ACAs are patent and within normal limits. Intracranial vertebral arteries, the basilar artery, and the slate mixer are normal. No evidence of hemodynamically significant large vessel intracranial stenosis or aneurysm. There is some motion degrading several of the slabs limiting distal vessel evaluation. The intracranial vertebral arteries and the basilar artery are moderately tortuous. The majority of the subarachnoid hemorrhage is superior to the orwjk-mp-mtap of the MR angiography, but no abnormality that could account for subarachnoid hemorrhage is identified on MRA. Cervical spine: Counting reference: Craniocervical junction. Cervical vertebral bodies maintain normal height and alignment. No evidence of a destructive osseous process or marrow replacing lesion. Axial gradient echo imaging is degraded by motion limiting detailed foraminal evaluation. At C2-3 the canal and foramina are patent. At C3-4, there is disc height loss and endplate hypertrophy moderately narrowing the canal, but the foramina appear patent. At C4-5, there is disc height loss and endplate hypertrophy with mild canal narrowing. Moderate left and mild right foraminal narrowing suspected based on uncinate hypertrophic changes. At C5-6, there is disc height loss and endplate hypertrophy. Mild right and moderate left foraminal narrowing from facet and uncinate degenerative change. At C6-7, there is disc height loss and endplate hypertrophy with moderate canal narrowing. Foramina are mildly narrowed secondary to uncinate hypertrophy. C7-T1, the canal and foramina are patent.. There is no abnormal cervical spine enhancement following contrast administration. IMPRESSION: Right frontal subarachnoid hemorrhage unchanged from prior CT within the constraints of differing modalities. No cause for subarachnoid hemorrhage is identified on this examination. Patent intracranial circulation. Microvascular ischemic change and volume loss. Cervical spondylosis detailed in the body of the report. Craniocervical junction is the counting reference for the cervical spine exam. Pulp Drier: PSCB Transcribe Date/Time: May 04 2023 1:02P Dictated by : VILLA ALARCON MD This examination was interpreted and the report reviewed and electronically signed by: VILLA ALARCON MD on May 04 2023 1:14PM EST [id number] Normal [facility] Magnesium SerPl-mCncon 05-04 Magnesium [Mass/Vol] 2.0 mg/dL Normal 1.7-2.3 [facility] Comment on above: Order Comment: Speci men Type: BLOOD SPECIMENOrdering Facility: [facility] Address: [address] [place] [address] [place] [address] Performed By: #### 2 777-1, 27032-9, 81084-9 ####[facility] LABCLIA [id number] [facility] [place] [address] [place] Monocytes Auto (Bld) [#/Vol] on 05-04-2023 Monocytes (Bld) [#/Vol] 0.57 10*3/uL <0.87 [facility] Monocytes/100 WBC Auto (Bld) on 05-04-2023 Monocytes/100 WBC (Bld) 8.0 % [facility] NURSING PROGon 05-04-2023 NURSING PROG HNO ID: [id number] Author: WILMER CARRASCO RN Service: ? Author Type: Registered Nurse Type: Nursing Progress Note Filed: 05/04/2023 11:19 Note Text: Radiology Service Progress Note DATE OF SERVICE: May 04, 2023 TIME: 11:18 AM PATIENT WEIGHT: 176LBS PATIENT IDENTITY VERIFICATION COMPLETED USING TWO (2) STANDARD IDENTIFIERS: Name and Date of confirmed by patient verbally and Name and Date of confirmed by identification band. FALL SCREENING: Has the patient had 2 falls in the last year or 1 fall with injury or currently using an Ambulatory Assistive Device (Walker, Cane, Wheelchair, Crutches, etc.)? Inpatient: Screened on floor PATIENT GENDER DATA: Female. status: : No status: NO. ALLERGIES: Reviewed and unchanged CONTRAST ALLERGY: No EXAM: MRI - CONTRAST TYPE: GROUP II IV SITE: Inpatient - refer to LDA documentation IV SITE APPEARANCE: Clean,Dry and Intact SIGNATURE: Wilmer Carrasco RN PATIENT NAME: Carly Marcelino DATE: May 04, 2023 TIME: 11:18 AM Normal [facility] Neutrophils Auto (Bld) [#/Vo l]on 05-04-2023 Neutrophils (Bld) [#/Vol] 4.85 10*3/uL 1.45-7.50 [facility] Neutrophils/100 WBC Auto (Bl d)on 05-04-2023 Neutrophils/100 WBC (Bld) 68.1 % [facility] No Panel Informationon 05-04 Estimated GFR (CKD-EPI) 75 mL/min/1.73m??? >=60 [facility] Comment on above: Estimated Glomerular Filtration Rate (eGFR) is calculated using the 2020 CKD-EPI creatinine equation. This equation utilizes serum creatinine, sex, and age as parameters. The creatinine assay has traceable calibration to isotope dilution-mass spectrometry. Refer to KDIGO guidelines for clinical interpretation. In patients with unstable renal function, e.g. those with acute kidney injury, the eGFR may not accurately reflect actual GFR. Immature Granulocyte # (Auto) <0.03 k/uL <0.10 [facility] Phosphorus Level 3.3 mg/dL 2.7-4.8 [facility] Urine Barbiturates Screen Negative Negative [facility] Comment on above: Cutoff threshold at 200 ng/mL. Urine Oxycodone Screen Negative Negative [facility] Comment on above: Cutoff threshold at 100 ng/mL. Nucleated RBC Auto (Bld) [#/ Vol]on 05-04-2023 Nucleated RBC (Bld) [#/Vol] 10*3/uL <0.01 [facility] Nucleated erythrocytes [Pres ence] in Blood by Automated counton 05-04-2023 Nucleated RBC Auto Ql (Bld) 0.0 /100{WBC} [facility] Phosphate SerPl-mCncon 05-04 Phosphate [Mass/Vol] 3.1 mg/dL Normal 2.7-4.8 [facility] Comment on above: Order Comment: Speci men Type: BLOOD SPECIMENOrdering Facility: [facility] Address: [address] [place] [address] Performed By: #### 2 777-1, 67735-5, 13667-2 ####[facility] LABCLIA [id number] [place] [address] [place] Platelet mean volume Auto (B ld) [Entitic vol]on 05-04-2023 Platelet mean volume (Bld) [Entitic vol] 9.3 fL 9.0-12.7 [facility] Platelets Auto (Bld) [#/Vol] on 05-04-2023 Platelets (Bld) [#/Vol] 177 10*3/uL 150-400 [facility] Protein Auto test strip (U) [Mass/Vol]on 05-04-2023 Protein (U) [Mass/Vol] Negative Negative [facility] Prothrombin time (PT)on 04-13 PT Coag (PPP) [Time] 10.4 s 9.7-13.0 [facility] RBC Auto (Bld) [#/Vol]on RBC (Bld) [#/Vol] 3.92 10*6/uL 3.90-5.20 [facility] Serum or plasma anion gap de terminationon 05-04-2023 Anion gap [Moles/Vol] 11 mmol/L 9-18 [facility] Specific gravity Auto test s trip (U) [Rel density]on 05-04-2023 Specific gravity (U) [Rel density] Clear Clear [facility] THERAPY NTon 05-04-2023 THERAPY NT HNO ID: [id number] Author: WILMER RIZVI, PT, DPT Service: Physical Therapy Author Type: Physical Therapist Type: Therapy (PT/OT/Speech/Resp) Filed: 05/04/2023 17:27 Note Text: Physical Therapy Treatment Summary SERVICE DATE: 05/04/2023 SERVICE TIME: 1610 to 1705 ROOM: [place] [address] ([facility] VASCULAR MEDIC[facility] LAB) PT 6 Clicks Score: 22 DISCHARGE RECOMMENDATIONS Home Recommended Discharge Equipment: No equipment needs anticipated ASSESSMENT Response to Therapy Interventions: Good Participation in Activities, On-Track to Achieve Discharge Goals Pt is very pleasant and hopeful to remain independence and d/c home. Pt was able to complete all functional mobility with SBA-CGA and progressed very well with ambulation with FWW. Min A without AD and shuffling gait - per pt uses FWW at home. 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 Relevant Past Medical History: rotator cuff tear of both shoulders, HTN, CAD, asthma HOME LIVING Patient Lives With: Self/Alone Assistance Available: Part-Time, Other: See Comment Comments: family lives next door and nearby Entry To Home: Stairs, Ramp Number Of Stairs Into Home: 2 Number Of Stairs To Bed/Bath: 0 (has flight to second floor that she goes to at times) Tub/Shower Type: tub/shower Laundry: first floor, pt completes Equipment Owned: Cane, Grab Bars- Shower, Walker- Wheeled, Rollator PRIOR FUNCTIONAL LEVEL Within Functional Limits reports IND with ADL's and IADL's, amb with walker, keeps walker in van, uses rollator when gardening, denies falls, +driving SUBJECTIVE Remember one minute of anger steals one minute of happiness. THERAPY DIAGNOSIS Reduced mobility-other TREATMENT INTERVENTIONS Evaluation, Therapeutic Activity (84097), Gait Training (86270) Timed Code Treatment (minutes): 40 Skilled Treatment Time (minutes): 55 TRAINING AND EDUCATION PROVIDED Assistive Device Use, Benefits of In-Hospital Mobility, Discharge Planning, Disease Specific Education, Expected Functional Level, Gait Pattern, Reduction of Deviations, Patient Exercise/Therapy Program Support Needs, Role of Physical Therapy, Transfers, Home Safety THERAPEUTIC SKILLS USED Activity Dosing, Assessment of Tolerance Including Vitals Response to Activity, Cues for Sequencing/Proper Technique for Activity, Cuing Tactile, Cuing Verbal, Movement Facilitation FUNCTIONAL STATUS Bed Mobility Rolling: Modified Independent Supine To Sit: Minimal Assistance Scooting: Stand By Assistance Transfers Sit To Stand: Verbal Cues Only, Additional Information from different height surfaces Stand To Sit: Stand By Assistance Bed to Chair Gait Contact Guard Assistance Gait Device: Wheeled Walker General Deviations/Observations: Maryann decreased, Step length decreased, Shuffling Gait Gait Distance (feet): 250' Stairs GOALS Patient will demonstrate progress with functional mobility to allow safe discharge to home with available support and/or physical assistance. Rehab Potential: Good PLAN PT Frequency: One Additional Visit Treatment Interventions: Education, Self Care / Home Management, Energy Conservation Training, Strengthening, Functional Mobility Training, Balance Training, Neuromuscular Re-education Plan for Next Visit: Standing Balance, Gait Training SIGNATURE: Wilmer Rizvi, PT, DPT PATIENT NAME: Carly Marcelino DATE: May 04, 2023 TIME: 5:27 PM Normal [facility] THERAPY NT HNO ID: [id number] Author: MOHINI PINEDA OTR/Alex Service: Occupational Therapy Author Type: Occupational Therapist Type: Therapy (PT/OT/Speech/Resp) Filed: 05/04/2023 16:34 Note Text: OCCUPATIONAL THERAPY MISSED VISIT SERVICE DATE: 05/04/2023 SERVICE TIME: 1205 ROOM: [place] [address] Patient not seen due to Test / Procedure. SIGNATURE: RISA Olea/Alex PATIENT NAME: Carly Marcelino DATE: May 04, 2023 TIME: 4:34 PM Normal [facility] TOX SCREEN ROUT URon 024 Amphetamines Confirm (U) [Mass/Vol] Negative Normal Negative [facility] Comment on above: Order Comment: Speci men Type: URINE SPECIMENOrdering Facility: [facility] Address: [address] [place] [address] Result Comment: Cuto ff threshold at 1000 ng/mL. Performed By: #### U TOX2 ####[facility] LABCLIA [id number] [place] [address] [place] BARBITURATES, URINE Negative Normal Negative [facility] Comment on above: Order Comment: Speci men Type: URINE SPECIMENOrdering Facility: [facility] Address: [address] [place] [address] Result Comment: Cuto ff threshold at 200 ng/mL. Performed By: #### U TOX2 ####[facility] LABCLIA [id number] [place] [address] [place] BENZODIAZEPINES, UR Negative Normal Negative [facility] Comment on above: Order Comment: Speci men Type: URINE SPECIMENOrdering Facility: [facility] Address: [address] [place] [address] Result Comment: Cuto ff threshold at 200 ng/mL. Performed By: #### U TOX2 ####[facility] LABCLIA [id number] [place] [address] [place] Cannabinoids Screen Ql (U) Negative Normal Negative [facility] Comment on above: Order Comment: Speci men Type: URINE SPECIMENOrdering Facility: [facility] Address: [address] [place] [address] Result Comment: Cuto ff threshold at 50 ng/mL. Performed By: #### U TOX2 ####[facility] LABCLIA [id number] [place] [address] [place] Cocaine Ql (U) Negative Normal Negative [facility] Comment on above: Order Comment: Speci men Type: URINE SPECIMENOrdering Facility: [facility] Address: [address] [place] [address] Result Comment: Cuto ff threshold at 300 ng/mL. Performed By: #### U TOX2 ####[facility] LABCLIA [id number] [place] [address] [place] Ethanol (U) [Mass/Vol] <11 Normal <11 [facility] Comment on above: Order Comment: Speci men Type: URINE SPECIMENOrdering Facility: [facility] Address: [address] [place] [address] Performed By: #### U TOX2 ####[facility] LABIA [id number] [place] [address] [place] Opiates Screen Ql (U) Negative Normal Negative [facility] Comment on above: Order Comment: Speci men Type: URINE SPECIMENOrdering Facility: [facility] Address: [address] [place] [address] Result Comment: Cuto ff threshold at 300 ng/mL. Performed By: #### U TOX2 ####[facility] LABIA [id number] [place] [address] [place] oxyCODONE cutoff Screen (U) [Mass/Vol] Negative Normal Negative [facility] Comment on above: Order Comment: Speci men Type: URINE SPECIMENOrdering Facility: [facility] Address: [address] [place] [address] Result Comment: Cuto ff threshold at 100 ng/mL. Performed By: #### U TOX2 ####[facility] LABCLIA [id number] [place] [address] [place] Phencyclidine Ql (U) Negative Normal Negative [facility] Comment on above: Order Comment: Speci men Type: URINE SPECIMENOrdering Facility: [facility] Address: [address] [place] [address] Result Comment: Cuto ff threshold at 25 ng/mL. Performed By: #### U TOX2 ####[facility] LABCLIA [id number] [place] [address] [place] URINALYSIS, DIPSTICK ONLYon 05-04-2023 Bilirubin Ql (U) Negative Normal Negative [facility] Comment on above: Order Comment: Speci men Type: URINE SPECIMENOrdering Facility: [facility] Address: [address] [place] [address] Performed By: #### U A ####[facility] LABCLIA [id number] [place] [address] [place] Clarity (Unsp spec) Clear Normal Clear [facility] Comment on above: Order Comment: Speci men Type: URINE SPECIMENOrdering Facility: [facility] Address: [address] [place] [address] Performed By: #### U A ####[facility] LABCLIA [id number] [place] [address] [place] Color (U) Yellow Normal Yellow [facility] Comment on above: Order Comment: Speci men Type: URINE SPECIMENOrdering Facility: [facility] Address: [address] [place] [address] Performed By: #### U A ####[facility] LABCLIA [id number] [place] [address] [place] Glucose Test strip (U) [Mass/Vol] Negative Normal Negative [facility] Comment on above: Order Comment: Speci men Type: URINE SPECIMENOrdering Facility: [facility] Address: [address] [place] [address] Performed By: #### U A ####[facility] LABCLIA [id number] [place] [address] [place] Hemoglobin Ql (U) Trace Abnormal Negative [facility] Comment on above: Order Comment: Speci men Type: URINE SPECIMENOrdering Facility: [facility] Address: [address] [place] [address] Performed By: #### U A ####[facility] LABCLIA [id number] [place] [address] [place] Ketones Ql (U) Negative Normal Negative [facility] Comment on above: Order Comment: Speci men Type: URINE SPECIMENOrdering Facility: [facility] Address: [address] [place] [address] Performed By: #### U A ####[facility] LABCLIA [id number] [place] [address] [place] Leukocyte esterase Test strip Ql (U) 2+ Abnormal Negative [facility] Comment on above: Order Comment: Speci men Type: URINE SPECIMENOrdering Facility: [facility] Address: [address] [place] [address] Performed By: #### U A ####[facility] LABCLIA [id number] [place] [address] [place] Nitrite Ql (U) Negative Normal Negative [facility] Comment on above: Order Comment: Speci men Type: URINE SPECIMENOrdering Facility: [facility] Address: [address] [place] [address] Performed By: #### U A ####[facility] LABCLIA [id number] [place] [address] [place] pH (U) 7.5 [pH] Normal <8.5 [facility] Comment on above: Order Comment: Speci men Type: URINE SPECIMENOrdering Facility: [facility] Address: [address] [place] [address] Performed By: #### U A ####[facility] LABCLIA [id number] [place] [address] [place] Protein (U) [Mass/Vol] Negative Normal Negative [facility] Comment on above: Order Comment: Speci men Type: URINE SPECIMENOrdering Facility: [facility] Address: [address] [place] [address] Performed By: #### U A ####[facility] LABIA [id number] [place] [address] [place] Specific gravity (U) [Rel density] 1.014 Normal 1.005-1.03 0 [facility] Comment on above: Order Comment: Speci men Type: URINE SPECIMENOrdering Facility: [facility] Address: [address] [place] [address] Performed By: #### U A ####[facility] LABIA [id number] [place] [address] [place] Urobilinogen Ql (U) 0.2 EU/dL Normal 0.2-1.0 EU/dL [facility] Comment on above: Order Comment: Speci men Type: URINE SPECIMENOrdering Facility: [facility] Address: [address] [place] [address] Performed By: #### U A ####[facility] LABIA [id number] [place] [address] [place] US LEG VEIN DVT RADHA VAS LABo n 05-04-2023 LEG VEIN DVT [facility] LAB Non-Invasive Vascular Laboratory [facility] Portable Lower Extremity Venous Duplex Bilateral/Complete Date of service/time: 05/04/2023 2:36:29 PM Name: MRS. CARLY MARCELINO Date of : 1940 Age: 82 years Gender: F Clinical Indication Previous deep vein thrombosis. TECHNIQUE -------- A venous duplex ultrasound examination was performed, including grayscale imaging with compression maneuvers and color Doppler and spectral Doppler examination with augmentation maneuvers and response to respiration of the below mentioned veins. FINDINGS -------- RIGHT SIDE Distal external iliac vein Doppler: normal flow. Compression: normal. Common femoral vein Doppler: normal flow. Compression: normal. Femoral vein Doppler: normal flow. Compression: normal. Popliteal vein Doppler: normal flow. Compression: normal. Posterior tibial veins Compression: normal. Peroneal veins Compression: normal. Great saphenous vein Compression: normal. LEFT SIDE Distal external iliac vein Doppler: normal flow. Compression: normal. Common femoral vein Doppler: normal flow. Compression: normal. Femoral vein Doppler: normal flow. Compression: normal. Popliteal vein Doppler: normal flow. Compression: normal. Posterior tibial veins Compression: normal. Peroneal veins Compression: normal. Great saphenous vein Compression: normal. Small saphenous vein Compression: normal. IMPRESSION RIGHT SIDE - DEEP VEINS Negative for acute deep vein thrombosis. RIGHT SIDE - SUPERFICIAL VEINS Unable to visualize the small saphenous vein. LEFT SIDE - DEEP VEINS Negative for acute deep vein thrombosis. Technologist: Ross Schmidt T Ordering physician: JASS PENN Interpreting physician: Artem Velázquez DO Final CC [email or web address] Medical Image : [id number]. [id number] See Link below for Image Normal [facility] Urine glucose measurement by test strip (mass/volume)on 05-04-2023 Glucose Test strip (U) [Mass/Vol] Negative Negative [facility] Urine hemoglobin detection b y automated test stripon 05-04-2023 Hemoglobin Auto test strip Ql (U) Trace Negative [facility] Urine nitrite detection by a utomated test stripon 05-04-2023 Nitrite Auto test strip Ql (U) 2+ Negative [facility] Nitrite Auto test strip Ql (U) Negative Negative [facility] Urobilinogen Auto test strip (U) [Mass/Vol]on 05-04-2023 Urobilinogen (U) [Mass/Vol] 0.2 EU/dL 0.2-1.0 EU/dL [facility] pH Auto test strip (U)on pH (U) 7.5 [pH] <8.5 [facility] ABO/Rhon 05-03-2023 ABO/Rh Positive Invalid Interpretation Code [facility] Comment on above: Performed By: #### 1 [id number], [id number], [id number], [id number] ####[facility] [address] [place] [address] ABO/Rh History Checkon 05-03 ABO/Rh History Check Verified Hx Blood Type Normal [facility] Comment on above: Performed By: #### 1 [id number], [id number], 3018217, [id number] ####[facility] [address] [place] [address] ABSCon 05-03-2023 ABSC Gel Interp Negative Normal [facility] Comment on above: Performed By: #### 1 [id number], [id number], 1252380, 73243864 ####[facility] [address] [place] [address] Activated partial thrombopla stin time (aPTT) in platelet poor plasma by coagulation aon 05-03-2023 aPTT Coag (PPP) [Time] 29.4 s 23.0-32.4 [facility] BLOOD BANKOrdered By: Ernie Li on 05-03-2023 ABO/Rh Interp Positive Invalid Interpretation Code [facility] BB Subsection ABSC Gel Interp Negative (05/03/23 10:22 AM) Normal [facility] BB Subsection BMPon 05-03-2023 Anion gap [Moles/Vol] 13 mmol/L Normal 6-16 [facility] Comment on above: Performed By: #### 2 469044, [id number], 5674788, [id number] ####[facility] [address] [place] [address] BUN/Creat Ratio 18 No Units Normal 10-20 [facility] Comment on above: Performed By: #### 2 252172, 88140023, 7730724, 84806872 ####[facility] [address] [place] [address] Calcium [Mass/Vol] 9.1 mg/dL Normal 8.9-11.1 [facility] Comment on above: Performed By: #### 2 076758, 25129006, 4113515, 98871305 ####[facility] [address] [place] [address] Chloride [Moles/Vol] 103 mmol/L Normal 101-111 [facility] Comment on above: Performed By: #### 2 139681, 89825736, 0155026, 38446404 ####[facility] [address] [place] [address] CO2 [Moles/Vol] 27 mmol/L Normal 21-31 [facility] Comment on above: Performed By: #### 2 275187, 56712952, 0873412, 70144139 ####[facility] [address] [place] [address] Creatinine [Mass/Vol] 0.9 mg/dL Normal 0.5-1.3 [facility] Comment on above: Performed By: #### 2 810137, 83705416, 3057663, 97688334 ####[facility] [address] [place] [address] Glucose [Mass/Vol] 82 mg/dL Normal 55-199 [facility] Comment on above: Performed By: #### 2 527639, 68241284, 7608247, 26978005 ####[facility] [address] [place] [address] Potassium [Moles/Vol] 4.0 mmol/L Normal 3.5-5.3 [facility] Comment on above: Performed By: #### 2 885772, 44093260, 5455884, 81170775 ####[facility] [address] [place] [address] Sodium [Moles/Vol] 139 mmol/L Normal 135-145 [facility] Comment on above: Performed By: #### 2 050506, 25501439, 0781634, 51321049 ####[facility] [address] [place] [address] Urea nitrogen [Mass/Vol] 16 mg/dL Normal 5-21 [facility] Comment on above: Performed By: #### 2 018720, 83882815, 5426089, 43303564 ####[facility] [address] [place] [address] Basophils Auto (Bld) [#/Vol] on 05-03-2023 Basophils (Bld) [#/Vol] 0.04 10*3/uL <0.11 [facility] Basophils/100 WBC Auto (Bld) on 05-03-2023 Basophils/100 WBC (Bld) 0.6 % [facility] Blood Bank ID#on 05-03-2023 BBID# [id number] Invalid Interpretation Code [facility] Comment on above: Performed By: #### 1 [id number], [id number], 5375176, [id number] ####[facility] [address] [place] [address] Blood manual differential co mment interpretation narrativeon 05-03-2023 Manual differential comment Girma (Bld) [Interp] Auto [facility] CBC W Auto Differential pane l (Bld)on 05-03-2023 Basophils (Bld) [#/Vol] 0.04 10*3/uL Normal <0.11 [facility] Comment on above: Order Comment: Speci men Type: BLOOD SPECIMENOrdering Facility: [facility] Address: [address] [place] [address] Performed By: #### 5 7021-8 ####[facility] LABCLIA [id number] [place] [address] [place] Basophils/100 WBC (Bld) 0.6 % Normal [facility] Comment on above: Order Comment: Speci men Type: BLOOD SPECIMENOrdering Facility: [facility] Address: [address] [place] [address] Performed By: #### 5 7021-8 ####[facility] LABIA [id number] [place] [address] [place] Differential cell count method Nom (Bld) Auto Normal [facility] Comment on above: Order Comment: Speci men Type: BLOOD SPECIMENOrdering Facility: [facility] Address: [address] [place] [address] Performed By: #### 5 7021-8 ####[facility] LABCLIA [id number] [place] [address] [place] Eosinophils (Bld) [#/Vol] 0.09 10*3/uL Normal <0.46 [facility] Comment on above: Order Comment: Speci men Type: BLOOD SPECIMENOrdering Facility: [facility] Address: [address] [place] [address] Performed By: #### 5 7021-8 ####[facility] LABCLIA [id number] [place] [address] [place] Eosinophils/100 WBC (Bld) 1.2 % Normal [facility] Comment on above: Order Comment: Speci men Type: BLOOD SPECIMENOrdering Facility: [facility] Address: [address] [place] [address] Performed By: #### 5 7021-8 ####[facility] LABCLIA [id number] [place] [address] [place] Erythrocyte distribution width (RBC) [Ratio] 13.7 % Normal 11.5-15.0 [facility] Comment on above: Order Comment: Speci men Type: BLOOD SPECIMENOrdering Facility: [facility] Address: [address] [place] [address] Performed By: #### 5 7021-8 ####[facility] LABCLIA [id number] [place] [address] [place] Hematocrit (Bld) [Volume fraction] 37.0 % Normal 36.0-46.0 [facility] Comment on above: Order Comment: Speci men Type: BLOOD SPECIMENOrdering Facility: [facility] Address: [address] [place] [address] Performed By: #### 5 7021-8 ####[facility] LABCLIA [id number] [place] [address] [place] Hemoglobin (Bld) [Mass/Vol] 12.2 g/dL Normal 11.5-15.5 [facility] Comment on above: Order Comment: Speci men Type: BLOOD SPECIMENOrdering Facility: [facility] Address: [address] [place] [address] Performed By: #### 5 7021-8 ####[facility] [facility] LABCLIA [id number] [place] [address] [place] Immature granulocytes (Bld) [#/Vol] 10*3/uL Normal <0.10 [facility] Comment on above: Order Comment: Speci men Type: BLOOD SPECIMENOrdering Facility: [facility] Address: [address] [place] [address] Performed By: #### 5 7021-8 ####[facility] LABCLIA [id number] [place] [address] [place] Immature granulocytes/100 WBC (Bld) 0.3 % Normal [facility] Comment on above: Order Comment: Speci men Type: BLOOD SPECIMENOrdering Facility: [facility] Address: [address] [place] [address] Performed By: #### 5 7021-8 ####[facility] LABCLIA [id number] [place] [address] [place] Lymphocytes (Bld) [#/Vol] 1.31 10*3/uL Normal 1.00-4.00 [facility] Comment on above: Order Comment: Speci men Type: BLOOD SPECIMENOrdering Facility: [facility] Address: [address] [place] [address] Performed By: #### 5 7021-8 ####[facility] LABCLIA [id number] [place] [address] [place] Lymphocytes/100 WBC (Bld) 18.1 % Normal [facility] Comment on above: Order Comment: Speci men Type: BLOOD SPECIMENOrdering Facility: [facility] Address: [address] [place] [address] Performed By: #### 5 7021-8 ####[facility] LABIA [id number] [place] [address] [place] MCH (RBC) [Entitic mass] 30.3 pg Normal 26.0-34.0 [facility] Comment on above: Order Comment: Speci men Type: BLOOD SPECIMENOrdering Facility: [facility] Address: [address] [place] [address] Performed By: #### 5 7021-8 ####[facility] [id number] [place] [address] [place] MCHC (RBC) [Mass/Vol] 33.0 g/dL Normal 30.5-36.0 [facility] Comment on above: Order Comment: Speci men Type: BLOOD SPECIMENOrdering Facility: [facility] Address: [address] [place] [address] Performed By: #### 5 7021-8 ####[facility] [id number] [place] [address] [place] MCV (RBC) [Entitic vol] 91.8 fL Normal 80.0-100.0 [facility] Comment on above: Order Comment: Speci men Type: BLOOD SPECIMENOrdering Facility: [facility] Address: [address] [place] [address] Performed By: #### 5 7021-8 ####[facility] [id number] [place] [address] [place] Monocytes (Bld) [#/Vol] 0.59 10*3/uL Normal <0.87 [facility] Comment on above: Order Comment: Speci men Type: BLOOD SPECIMENOrdering Facility: [facility] Address: [address] [place] [address] Performed By: #### 5 7021-8 ####[facility] [id number] [place] [address] [place] Monocytes/100 WBC (Bld) 8.2 % Normal [facility] Comment on above: Order Comment: Speci men Type: BLOOD SPECIMENOrdering Facility: [facility] Address: [address] [place] [address] Performed By: #### 5 7021-8 ####[facility] LABCLIA [id number] [place] [address] [place] Neutrophils (Bld) [#/Vol] 5.18 10*3/uL Normal 1.45-7.50 [facility] Comment on above: Order Comment: Speci men Type: BLOOD SPECIMENOrdering Facility: [facility] Address: [address] [place] [address] Performed By: #### 5 7021-8 ####[facility] LABCLIA [id number] [place] [address] [place] Neutrophils/100 WBC (Bld) 71.6 % Normal [facility] Comment on above: Order Comment: Speci men Type: BLOOD SPECIMENOrdering Facility: [facility] Address: [address] [place] [address] Performed By: #### 5 7021-8 ####[facility] LABCLIA [id number] [place] [address] [place] Nucleated RBC (Bld) [#/Vol] 10*3/uL Normal <0.01 [facility] Comment on above: Order Comment: Speci men Type: BLOOD SPECIMENOrdering Facility: [facility] Address: [address] [place] [address] Performed By: #### 5 7021-8 ####[facility] LABCLIA [id number] [place] [address] [place] Nucleated RBC/100 WBC (Bld) [Ratio] 0.0 /100 WBC Normal [facility] Comment on above: Order Comment: Speci men Type: BLOOD SPECIMENOrdering Facility: [facility] Address: [address] [place] [address] Performed By: #### 5 7021-8 ####[facility] LABCLIA [id number] [place] [address] [place] Platelet mean volume (Bld) [Entitic vol] 9.4 fL Normal 9.0-12.7 [facility] Comment on above: Order Comment: Speci men Type: BLOOD SPECIMENOrdering Facility: [facility] Address: [address] [place] [address] Performed By: #### 5 7021-8 ####[facility] LABCLIA [id number] [place] [address] [place] Platelets (Bld) [#/Vol] 171 10*3/uL Normal 150-400 [facility] Comment on above: Order Comment: Speci men Type: BLOOD SPECIMENOrdering Facility: [facility] Address: [address] [place] [address] Performed By: #### 5 7021-8 ####[facility] LABCLIA [id number] [place] [address] [place] RBC (Bld) [#/Vol] 4.03 10*6/uL Normal 3.90-5.20 [facility] Comment on above: Order Comment: Speci men Type: BLOOD SPECIMENOrdering Facility: [facility] Address: [address] [place] [address] Performed By: #### 5 7021-8 ####[facility] LABCLIA [id number] [place] [address] [place] WBC (Bld) [#/Vol] 7.23 10*3/uL Normal 3.70-11.00 [facility] Comment on above: Order Comment: Speci men Type: BLOOD SPECIMENOrdering Facility: [facility] Address: [address] [place] [address] Performed By: #### 5 7021-8 ####[facility] LABCLIA [id number] [facility] [id number] [place] [address] [place] CBC w/ Auto Diffon 4 Basophil Absolute 0.0 E9/L Normal 0.0-0.2 [facility] Comment on above: Performed By: #### 2 814129, 11039273, 8915714, 81139731 ####[address] [place] [address] Basophils/100 WBC (Bld) 0.6 % Normal 0.0-2.0 [facility] Comment on above: Performed By: #### 2 154576, 83728939, 4545369, 58682480 ####[address] [address] Eos Absolute 0.1 E9/L Normal 0.0-0.5 [facility] Comment on above: Performed By: #### 2 615063, 35550409, 9690107, 96527270 ####[address] [address] Eosinophils/100 WBC (Bld) 2.2 % Normal 0.0-8.0 [facility] Comment on above: Performed By: #### 2 474263, 10416484, 4966714, 85646373 ####[address] [address] Erythrocyte distribution width (RBC) [Ratio] 14.0 % Normal 10.9-14.2 [facility] Comment on above: Performed By: #### 2 428892, 86586171, 7705675, 75334472 ####[address] [place] [address] Hematocrit (Bld) [Volume fraction] 38.0 % Normal 34.0-46.0 [facility] Comment on above: Performed By: #### 2 471435, 53611137, 2391700, 55348219 ####[address] [address] Hemoglobin (Bld) [Mass/Vol] 12.8 g/dL Normal 12.0-16.0 [facility] Comment on above: Performed By: #### 2 752208, 61682432, 8259200, 57004637 ####[facility] [address] [place] [address] Lymph Absolute 1.1 E9/L Normal 1.0-4.0 [facility] Comment on above: Performed By: #### 2 448978, 63738854, 6427044, 43477874 ####[address] [address] Lymphocytes/100 WBC (Bld) 17.1 % Normal 14.0-50.0 [facility] Comment on above: Performed By: #### 2 683567, 28470189, 5840723, 41260398 ####[address] [address] MCH (RBC) [Entitic mass] 29.9 pg Normal 27.0-34.0 [facility] Comment on above: Performed By: #### 2 938512, 60366419, 8429601, 90129897 ####[address] [address] MCHC (RBC) [Mass/Vol] 33.4 g/dL Normal 31.4-36.0 [facility] Comment on above: Performed By: #### 2 738976, 45604061, 7410219, 00744932 ####[address] [address] MCV (RBC) [Entitic vol] 89.6 fL Normal 80.0-100.0 [facility] Comment on above: Performed By: #### 2 905830, 18369298, 9549124, 06183496 ####[address] [place] [address] Mcculloch Absolute 0.5 E9/L Normal 0.2-1.0 [facility] Comment on above: Performed By: #### 2 567861, 65660942, 0496836, 64571275 ####[address] [address] Monocytes/100 WBC (Bld) 7.0 % Normal 4.0-14.0 [facility] Comment on above: Performed By: #### 2 894770, 83223200, 8518857, 05133526 ####[address] [address] Neutro Absolute 4.8 E9/L Normal 2.0-7.5 [facility] Comment on above: Performed By: #### 2 734101, 65770129, 4148927, 50302385 ####[address] [address] Neutro Auto 73.1 % Normal 36.0-75.0 [facility] Comment on above: Performed By: #### 2 893632, 16413097, 4557511, 69354386 ####[address] [address] Platelet 186.0 E9/L Normal 150.0-500. 0 [facility] Comment on above: Performed By: #### 2 335941, 42519783, 4500325, 53579366 ####[address] [address] Platelet mean volume (Bld) [Entitic vol] 7.5 fL Normal 6.4-10.8 [facility] Comment on above: Performed By: #### 2 883674, 28439404, 0484699, 51588522 ####[address] [address] RBC 4.3 E12/L Normal 4.3-5.9 [facility] Comment on above: Performed By: #### 2 352921, 67331673, 1352896, 00465599 ####[address] [address] WBC 6.5 E9/L Normal 4.0-11.0 [facility] Comment on above: Performed By: #### 2 912948, 79144141, 6367409, 30070971 ####[facility] [id number] [place] [address] CHEMISTRYOrdered By: Lab ROP User on 05-03-2023 Glucose [Mass/Vol] 84 mg/dL Normal 55 - 99 mg/dL [facility] Comment on above: Result Comment: Abdullahi beckwith RN/ POC Device SN [id number] Invalid Interpretation Code [facility] Subsection POC User ID [id number] 1 Invalid Interpretation Code [facility] Subsection POC Username PEARL PEREYRA Invalid Interpretation Code [facility] Subsection CHEMISTRYOrdered By: SYSTEM SYSTEM on 05-03-2023 Anion gap [Moles/Vol] 13 mmol/L Normal 6 - 16 mEq/L [facility] Calcium [Mass/Vol] 9.1 mg/dL Normal 8.9 - 11. 1 mg/dL [facility] Chloride [Moles/Vol] 103 mmol/L Normal 101 - 1 11 mmol/L [facility] CO2 [Moles/Vol] 27 mmol/L Normal 21 - 31 mmol/L [facility] Creatinine [Mass/Vol] 0.9 mg/dL Normal 0.5 - 1.3 mg/dL [facility] eGFR 63 mL/min/1.73 m2 Normal >=59mL/min /1.73 m2 [facility] Glucose [Mass/Vol] 82 mg/dL Normal 55 - 199 mg/dL [facility] Potassium [Moles/Vol] 4.0 mmol/L Normal 3.5 - 5.3 mmol/L [facility] Sodium [Moles/Vol] 139 mmol/L Normal 135 - 145 mmol/L [facility] Troponin 5.90 pg/mL Low 10.10 - 27.10 pg/mL [facility] Comment on above: Interpretive Data: T he 95% CI (Confidence Interval) PPV (Positive Predictive Value) for myocardial infarction in females is 38 pg/mL, in males 51 pg/mL. The results should be used in conjunction with clinical conditions of myocardial infarction. (Access High Sensitivity Troponin I Instructions For Use, Raegan Nolan, October 2017) Urea nitrogen [Mass/Vol] 16 mg/dL Normal 5 - 21 mg/dL [facility] Urea nitrogen/Creatinine [Mass ratio] 18 mg/mg Normal 10 - 20 [facility] CNCRITCRon [facility]-03-2023 [facility] ([facility] -- CARLY MARCELINO ([id number]) 1940 F [place] Date Time Provider Department 05/03/23 ALDO WORRELL [facility] During your visit today, we recorded the following information about you: Aldo Worrell APRN.CNP 05/03/2023 3:55 PM Signed CRITICAL CARE TRANSPORT MEDICAL CONTROL CONSULT NOTE Patient Name: Carly Marcelino Service Date: May 03, 2023 Referring Facility: [facility] Accepting Facility: [facility] MAIN REASON FOR TRANSPORT: Need for neurosurgical evaluation and management not available at referring facility REASON FOR CONSULT: General management CCT MEDICAL CONTROL CONSULT SUMMARY: History, physical exam findings, and available background patient information from CCT Transport Nurse were reviewed at the time of consult. Pertinent additional information was reviewed as follows: CCT transport request log In brief, Carly Marcelino is a 82 year old female with a history, known at time of consult, significant for HTN, CAD, and DVT on home eliquis and plavix who presented to [facility] for evaluation of new onset vision changes/weakness and hypertension (SBP ~ 250 mmHg. 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 Treated with multiple anti-hypertensive agents and given Andexxa at referring facility for DOAC reversal. Called by CCT team for general management with SBP 100s and regarding prophylactic AED therapy. Per discussion with CCT team she remains awake and alert, VSS on RA, with no concerns of clinical seizure activity. PLAN: Multiple factors considered including: patient history/condition/trajecto ry/stability, referring and receiving destinations, duration of transport time, medications and therapies available during transport, patient safety, as well as crew capabilities. Orders given for: 500 ml LR bolus, defer AED therapy to accepting facility Plan of care and orders confirmed and read back via telephone with CCT Transport reconnaissance crewmember, Kt Mccoy RN SIGNATURE: Aldo Worrell APRN.CNP Acute Care Nurse Practitioner Critical Care Transport Allergies As of Date: 05/03/2023 Noted Allergy Reaction HYDANTOINS 05/01/2003 10 - Anaphylaxis Comments: throat swells ,hives PHENYTOIN 11/06/2012 10 - Anaphylaxis ADHESIVE TAPE (ROSINS) 09/11/2011 2 - Rash CARBAMAZEPINE 05/01/2003 9 - Itching Comments: Tegretal caused itching DIVALPROEX SODIUM 12/14/2018 5 - Intolerance Comments: Fine motor tremors DULERA (MOMETASONE-FORMOTEROL) 09/15/2014 5 - Intolerance Comments: Falls VALPROIC ACID ANALOGUES 05/01/2003 Comments: tremors AMLODIPINE 11/06/2012 16 - Unknown Comments: intolterance LABETALOL 11/06/2012 16 - Unknown Comments: Intolerance NIFEDIPINE 11/06/2012 16 - Unknown Comments: intolerance VALPROIC ACID 11/06/2012 5 - Intolerance Date Reviewed: 05/03/2023 Reviewed by: Sarkis Orona DO - Fully Assessed Order(s):[] lactated ringers 500 mL iv bolusDisp: Rfl: Prescriptions as of 05/03/2023 - montelukast (SINGULAIR) 10 mg tablet Take 10 mg by mouth once daily. - omega 6-bww-uul-fish oil (FISH OIL) 100-160-1,000 mg cap Take by mouth. - Walker misc front wheeled walker dx left knee hematoma, Print Requisition, Compound - multivitamin (MULTIPLE VITAMINS ORAL) Refill(s) 0 - baclofen (LIORESAL) 10 mg tablet Baclofen Baclofen Active 5 MG Oral Daily at bedtime August 01, 2017 3:16pm 08-01-2017 [facility] ([id number]) - cetirizine 10 mg ODT Cetirizine Cetirizine Active 10 MG Oral Daily August 01, 2017 3:16pm - [facility] ([id number]) - Cholecalciferol, Vitamin D3, (VITAMIN D-3) 2,000 unit cap Take by mouth once daily. - docusate sodium (COLACE) 100 mg capsule Take 100 mg by mouth once daily. as needed - magnesium oxide 400 mg cap Take by mouth once daily. - triamterene-hydrochlorothi azide (DYAZIDE) 37.5-25 mg per capsule Take 1 capsule by mouth once daily. - Vitamin E, dl, acetate, 1,000 unit capsule Take 1,000 Units by mouth once daily. - B Complex Vitamins capsule Take 1 capsule by mouth once daily. - losartan (COZAAR) 100 mg tablet Take 100 mg by mouth once daily. - gabapentin (NEURONTIN) 300 mg capsule Take 300 mg by mouth three times daily. Facility-Administered Medications as of 05/03/2023 - NaCl 0.9% iv flush bag - pantoprazole DR 40 mg tab(s) (PROTONIX) - senna-docusate 8.6-50 mg 1 tablet (SENNA-S) - iv contrast (radiology procedure) - iv contrast (radiology procedure) - gabapentin 200 mg cap(s) (NEURONTIN) - cetirizine 10 mg tab(s) (ZYRTEC) - losartan 100 mg tab(s) (COZAAR) - montelukast 10 mg tab(s) (SINGULAIR) - baclofen 5 mg tab(s) - levETIRAcetam 750 mg tab(s) (KEPPRA) - sodium chloride 0.9 % (flush) 2-10 mL (BD POSIFLUSH) - perflutren lipid microspheres 1.1 mg/mL 1.3 mL injection (DEFINITY) - hydrALAZINE 5-10 mg injection (more content not included)... Normal [facility] CRP SerPl-mCncon 05-03-2023 CRP [Mass/Vol] mg/L Normal <0.9 [facility] Comment on above: Order Comment: Speci men Type: BLOOD SPECIMENOrdering Facility: [facility] Address: [address] [place] [address] Performed By: #### 2 276-4, 2777-1, 19102-0, 05534-6, LIPNF, 1987-5, 51520-5 ####[facility] LABCLIA [id number] [place] [address] [place] CT Head or Brain w/o Contras ton 02-22-2024 CT Head or Brain w/o Contrast Normal [facility] Calcium.ionized [Moles/Vol]o n 05-03-2023 Calcium.ionized (Bld) [Mass/Vol] 1.21 mmol/L Normal 1.08-1.30 [facility] Comment on above: Order Comment: Speci men Type: BLOOD SPECIMENOrdering Facility: [facility] Address: [address] [place] [address] Performed By: #### 1 995-0 ####[facility] LABCLIA [id number] [place] [address] [place] Calcium.ionized adjusted to pH 7.4 (Bld) [Moles/Vol] 1.20 mmol/L Normal 1.08-1.30 [facility] Comment on above: Order Comment: Speci men Type: BLOOD SPECIMENOrdering Facility: [facility] Address: [address] [place] [address] Performed By: #### 1 995-0 ####[facility] LABCLIA [id number] [place] [address] [place] Capillary Glucose POCon 04-13 Glucose [Mass/Vol] 84 mg/dL Normal 55-99 [facility] Comment on above: Result Comment: Abdullahi beckwith RN/ Performed By: #### 2 [id number] ####[facility] [address] [place] [address] Cholesterol in LDL Calc [Mas s/Vol]on 05-03-2023 Cholesterol in LDL [Mass/Vol] 58 mg/dL <100 [facility] Comment on above: <100 mg/dL, Optimal 100-129 mg/dL, Near optimal/above optimal 130-159 mg/dL, Borderline high 160-189 mg/dL, High>189 mg/dL, Very highSecondary prevention optimal LDL Cholesterol levels are recommended to be < 70 mg/dL Cholesterol in VLDL Calc [Ma ss/Vol]on 05-03-2023 Cholesterol in VLDL [Mass/Vol] 27 mg/dL <30 [facility] Comprehensive metabolic 2000 panelon 05-03-2023 Albumin [Mass/Vol] 3.6 g/dL Low 3.9-4.9 [facility] Comment on above: Order Comment: Speci men Type: BLOOD SPECIMENOrdering Facility: [facility] Address: [address] [place] [address] Performed By: #### 2 276-4, 2777-1, 85609-0, 63866-6, LIPNF, 1987-07, ####[facility] LABIA [id number] [place] [address] [place] ALP [Catalytic activity/Vol] 50 U/L Normal 34-123 [facility] Comment on above: Order Comment: Speci men Type: BLOOD SPECIMENOrdering Facility: [facility] Address: [address] [place] [address] Performed By: #### 2 276-4, 2777-1, 16134-6, 21196-1, LIPNF, 1987-07, ####[facility] [id number] [place] [address] [place] ALT [Catalytic activity/Vol] 10 U/L Normal 7-38 [facility] Comment on above: Order Comment: Speci men Type: BLOOD SPECIMENOrdering Facility: [facility] Address: [address] [place] [address] Performed By: #### 2 276-4, 2777-1, 15127-7, 97119-2, LIPNF, 1987-07, ####[facility] LABIA [id number] [place] [address] [place] Anion gap [Moles/Vol] 8 mmol/L Low 9-18 [facility] Comment on above: Order Comment: Speci men Type: BLOOD SPECIMENOrdering Facility: [facility] Address: [address] [place] [address] Performed By: #### 2 276-4, 2777-1, 20322-8, 40787-8, LIPNF, 1987-07, ####[facility] LABCLIA [id number] [address] [address] [place] AST [Catalytic activity/Vol] 17 U/L Normal 13-35 [facility] Comment on above: Order Comment: Speci men Type: BLOOD SPECIMENOrdering Facility: [facility] Address: [address] [place] [address] Performed By: #### 2 276-4, 2777-1, 00826-2, 40493-6, LIPNF, 1987-07, ####[facility] LABCLIA [id number] [place] [address] [place] Bilirubin [Mass/Vol] 0.4 mg/dL Normal 0.2-1.3 [facility] Comment on above: Order Comment: Speci men Type: BLOOD SPECIMENOrdering Facility: [facility] Address: [address] [place] [address] Performed By: #### 2 276-4, 277-1, 40279-4, 12438-0, LIPNF, 1987-07, ####[facility] LABIA [id number] [place] [address] [place] Calcium [Mass/Vol] 9.0 mg/dL Normal 8.5-10.2 [facility] Comment on above: Order Comment: Speci men Type: BLOOD SPECIMENOrdering Facility: [facility] Address: [address] [place] [address] Performed By: #### 2 276-4, 2777-1, 03278-3, 01560-3, LIPNF, 1987-07, ####[facility] LABIA [id number] [place] [address] [place] Chloride [Moles/Vol] 106 mmol/L High 97-105 [facility] Comment on above: Order Comment: Speci men Type: BLOOD SPECIMENOrdering Facility: [facility] Address: [address] [id number] Performed By: #### 2 276-4, 2777-1, 87752-9, 02230-8, LIPNF, 1987-07, ####[facility] LABCLIA [id number] [address] [address] [place] CO2 [Moles/Vol] 28 mmol/L Normal 22-30 [facility] Comment on above: Order Comment: Speci men Type: BLOOD SPECIMENOrdering Facility: [facility] Address: [address] [place], [place] [address] Performed By: #### 2 276-4, 2777-1, 93891-5, , LIPNF, 1987-07, ####[facility] LABCLIA [id number] [place] [address] [place] Creatinine [Mass/Vol] 0.81 mg/dL Normal 0.58-0.96 [facility] Comment on above: Order Comment: Speci men Type: BLOOD SPECIMENOrdering Facility: [facility] Address: [address] [place] [address] Performed By: #### 2 276-4, 2777-1, 53680-5, , LIPNF, 1987-07, ####[facility] LABIA [id number] [place] [address] [place] Creatinine and Glomerular filtration rate.predicted panel (S/P/Bld) 72 mL/min/1.73m??? Normal >=60 [facility] Comment on above: Order Comment: Speci men Type: BLOOD SPECIMENOrdering Facility: [facility] Address: [address] [place], [place] [address] Result Comment: Colleen mated Glomerular Filtration Rate (eGFR) is calculated using the 2020 CKD-EPI creatinine equation. This equation utilizes serum creatinine, sex, and age as parameters. The creatinine assay has traceable calibration to isotope dilution-mass spectrometry. Refer to KDIGO guidelines for clinical interpretation. In patients with unstable renal function, e.g. those with acute kidney injury, the eGFR may not accurately reflect actual GFR. Performed By: #### 2 276-4, 7-1, 61358-3, , LIPNF, 1987-07, ####[facility] LABCLIA [id number] [address] [address] [place] Glucose [Mass/Vol] 91 mg/dL Normal 74-99 [facility] Comment on above: Order Comment: Karey macdonald Type: BLOOD SPECIMENOrdering Facility: [facility] Address: [address] [place] [address] Result Comment: The [place] [employer] (ADA) provides guidance for cutoff values for fasting glucose and random glucose. The ADA defines fasting as no caloric intake for at least 8 hours. Fasting plasma glucose results between 100 to 125 mg/dL indicate increased risk for diabetes (prediabetes). Fasting plasma glucose results greater than or equal to 126 mg/dL meet the criteria for diagnosis of diabetes. In the absence of unequivocal hyperglycemia, results should be confirmed by repeat testing. In a patient with classic symptoms of hyperglycemia or hyperglycemic crisis, random plasma glucose results greater than or equal to 200 mg/dL meet the criteria for diagnosis of diabetes. Reference: Standards of Medical Care in Diabetes 2016, [place] [employer]. Diabetes Care. 2016.39(Suppl 1). Performed By: #### 2 276-4, 7-1, 99035-0, 73320-2, LIPNF, 1987-07, ####[facility] LABCLIA [id number] [place] [id number] [place] Potassium [Moles/Vol] 4.0 mmol/L Normal 3.7-5.1 [facility] Comment on above: Order Comment: Karey macdonald Type: BLOOD SPECIMENOrdering Facility: [facility] Address: [address] [id number] Performed By: #### 2 276-4, 7-1, 75014-4, 41964-8, LIPNF, 1987-07, ####[facility] LABCLIA [id number] [place] [id number] [place] Protein [Mass/Vol] 5.8 g/dL Low 6.3-8.0 [facility] Comment on above: Order Comment: Speci men Type: BLOOD SPECIMENOrdering Facility: [facility] Address: [address] [place] [address] Performed By: #### 2 276-4, 2777-1, 17824-2, 43900-7, LIPNF, 1987-07, ####[facility] LABIA [id number] [place] [id number] [place] Sodium [Moles/Vol] 142 mmol/L Normal 136-144 [facility] Comment on above: Order Comment: Speci men Type: BLOOD SPECIMENOrdering Facility: [facility] Address: [address] [place] [address] Performed By: #### 2 276-4, 2777-1, 67540-0, 02685-9, LIPNF, 1987-07, ####[facility] LABIA [id number] [place] [id number] [place] Urea nitrogen [Mass/Vol] 12 mg/dL Normal 7-21 [facility] Comment on above: Order Comment: Speci men Type: BLOOD SPECIMENOrdering Facility: [facility] Address: [address] [place] [address] Performed By: #### 2 276-4, 2777-1, 20072-5, 51992-2, LIPNF, 1987-07, ####[facility] LABIA [id number] [place] [id number] [place] Consent for Treatmenton 04-13 Consent for Treatment [id number] Normal [facility] ECG COMPLETEon 05-03-2023 ECG COMPLETE Ventricular Rate : 6 3 BPM Atrial Rate : 63 BPM P-R Interval : 190 ms QRS Duration : 90 ms Q-T Interval : 450 ms QTC Calculation(Bazett) : 460 ms Calculated P [place] : 56 degrees Calculated R [place] : -4 degrees Calculated T [place] : 21 degrees NORMAL SINUS RHYTHM MINIMAL VOLTAGE CRITERIA FOR LVH, MAY BE NORMAL VARIANT ( R in aVL ) BORDERLINE ECG Confirmed by ARTEM ROBERTSON MD ([id number]) on 05/14/2023 8:29:38 AM NAME : CARLY MARCELINO PID : [id number] : 1940 Gender : Female Race : ORD : [id number] Procedure Date : May 03 2023 13:52:06 Edit Date : May 14 2023 08:29:39 Diagnosis: NORMAL SINUS RHYTHM MINIMAL VOLTAGE CRITERIA FOR LVH, MAY BE NORMAL VARIANT ( R in aVL ) BORDERLINE ECG Confirmed by ARTEM ROBERTSON MD ([id number]) on 05/14/2023 8:29:38 AM Test Reason : Arrhythmia Location : 22 : [place] [address] Overread By : ARTME ROBERTSON MD Edited By : ARTEM ROBERTSON MD Referred By : STACIA DWYER Acquired by : RAD MCNEILL [facility] ED Clinical Summaryon 2023 ED Clinical Summary Normal [facility] ED Note-Physicianon 05-03-19 24 ED Note-Physician Normal [facility] Comment on above: Result Comment: Elec tronically Signed By: Stacia Dwyer DO\.br\Date and Time Signed: 05/03/23 11:45 EST ED Patient Education Noteon 05-03-2023 ED Patient Education Note Normal [facility] ED Patient Summaryon 024 ED Patient Summary Normal [facility] Eosinophils/100 WBC Auto (Bl d)on 05-03-2023 Eosinophils/100 WBC (Bld) 1.8 % [facility] Erythrocyte distribution wid th Auto (RBC) [Ratio]on 05-03-2023 Erythrocyte distribution width (RBC) [Ratio] 14.2 % 11.5-15.0 [facility] Ferritin SerPl-mCncon 2023 Ferritin [Mass/Vol] 166.0 ng/mL Normal 14.7-205.1 [facility] Comment on above: Order Comment: Speci men Type: BLOOD SPECIMENOrdering Facility: [facility] Address: [address] [place] [address] Performed By: #### 2 276-4, 2777-1, 12777-7, 91783-3, ANGEL, 1987-5, 52229-8 ####[facility] LABCLIA [id number] [address] [place] [address] [place] Glucose mean value [Mass/vol ume] in Blood Estimated from glycated hemoglobinon 05-03-2023 Average glucose Estimated from glycated hemoglobin (Bld) [Mass/Vol] 94 mg/dL [facility] Comment on above: eAG: (Estimated aver age glucose) is a calculated value from HgbA1c and is district representative of the average blood glucose level in the last 2-3 month period. HEMATOLOGYOrdered By: SYSTEM SYSTEM on 05-03-2023 Basophil Absolute 0.0 E9/L Normal 0.0 - 0.2 E9/L [facility] Basophils/100 WBC (Bld) 0.6 % Normal 0.0 - 2.0 % [facility] Eos Absolute 0.1 E9/L Normal 0.0 - 0.5 E9/L [facility] Eosinophils/100 WBC (Bld) 2.2 % Normal 0.0 - 8.0 % [facility] Erythrocyte distribution width (RBC) [Ratio] 14.0 % Normal 10.9 - 14.2 % [facility] Hematocrit (Bld) [Volume fraction] 38.0 % Normal 34.0 - 46.0 % [facility] Hemoglobin (Bld) [Mass/Vol] 12.8 g/dL Normal 12.0 - 16.0 gm/dL [facility] Lymph Absolute 1.1 E9/L Normal 1.0 - 4.0 E9/L [facility] Lymphocytes/100 WBC (Bld) 17.1 % Normal 14.0 - 50.0 % [facility] MCH (RBC) [Entitic mass] 29.9 pg Normal 27.0 - 34.0 pg [facility] MCHC (RBC) [Mass/Vol] 33.4 g/dL Normal 31.4 - 36.0 gm/dL [facility] MCV (RBC) [Entitic vol] 89.6 fL Normal 80.0 - 100.0 fL [facility] Mcculloch Absolute 0.5 E9/L Normal 0.2 - 1.0 E9/L [facility] Monocytes/100 WBC (Bld) 7.0 % Normal 4.0 - 14.0 % [facility] Neutro Absolute 4.8 E9/L Normal 2.0 - 7.5 E9/L [facility] Neutro Auto 73.1 % Normal 36.0 - 75.0 % [facility] Platelet 186.0 E9/L Normal 150.0 - 500.0 E9/L [facility] Platelet mean volume (Bld) [Entitic vol] 7.5 fL Normal 6.4 - 10.8 fL [facility] RBC 4.3 E12/L Normal 4.3 - 5.9 E12/L [facility] WBC 6.5 E9/L Normal 4.0 - 11.0 E9/L [facility]e HISTORY PHYSICALon HISTORY PHYSICAL HNO ID: [id number] Author: MARV RECINOS MD Service: Neurology ICU Author Type: Resident Type: H&P Filed: 05/03/2023 17:40 Note Text: -- Attestation signed by Jass Penn MD at 05/04/2023 12:43 PM PATIENT NAME: Carly Marcelino PATIENT STAFF COORDINATION OF CRITICAL CARE I have reviewed the history and physical examination obtained and documented by the resident, Dr Recinos and I personally participated in the kuo components. I have discussed the case and management of the patient's care. The following comments revise or confirm relevant kuo components of the note. I have repeated the examination and confirm the findings except as documented below. PATIENT PROBLEMS I REVIEWED, REVISED AND/OR INITIATED: Principal Problem: SAH (subarachnoid hemorrhage) (HCC) Active Problems: DVT (deep venous thrombosis) (HCC) Seizure (HCC) Primary hypertension Coronary artery disease involving [place] coronary artery of [place] heart without angina pectoris Mixed hyperlipidemia Sciatica of right side Uncomplicated asthma IVANA (iron deficiency anemia) Resolved Problems: * No resolved hospital problems. * PLAN Neuro checks Stability CTH with MRI/MRA Keep sbp<160 Pain control LEV for 3 days prophylaxis Stroke and nsgy consult Please see the documented klqgrh-kz-epuotn plan in the updated problem list. [facility] Staff Physician note of personal involvement in Care: I was personally involved in the care of this patient. The required my full attention and direct personal management. Jass Penn MD Staff, Neurointensive Care Neurological [place] PAGER: [phone] (2NICU for director of curriculum and instruction) DATE of SERVICE: May 03, 2023 TIME of SERVICE: 5:37 PM This is an electronically created document. If printed, please do not remove from the chart or modify printed copy. -- SERVICE DATE: 05/03/2023 SERVICE TIME: 5:38 PM NEUROLOGICAL INTENSIVE CARE UNIT HISTORY AND PHYSICAL REASON FOR ADMISSION: SAH Subjective HPI: Patient is a 82F with hx of DVT (2022), Afib on plavix, eliquis, CAD (PCI of RCA 12/01), bilateral carotid stenosis, former smoker, HTN, asthma, mild pulmonary HTN, seizures who presents to the NICU as autolaunch for SAH. LKW at 0830 05/03. Neuro intact. Patient reports that she was eating her breakfast after taking her daily medication when she suddenly felt fatigued with blurry vision. She checked her BP and saw SBP of 250 mmHg. In the ED, her eliquis was reversed and she received push-dose BP meds because her systolic BP was 220s. She denies WISDOM, SOB, trauma to her head, n/v. Denies change in sensation. She has chronic LE weakness attributed to lower back pain. Denies sensory deficits. No new medications, herbal supplements. Of note patient endorses WISDOM on 04/20 that woke her from her sleep. No prior hx of headaches. She denies N/V/LOC during event. WISDOM caused patient to present to [facility] ED where CTH and CTA was unremarkable. She was discharged home without further intervention. She denies recurrent history of headache. Lives alone and ambulates and completes ADLs independently. Denies family hx of SAH/CVA. No prior neurologic history. PAST MEDICAL HISTORY Diagnosis Date - Arterial aneurysm (HCC) left eye - Asthma rare use of albuterol, controled with zafirlukast, advair - Bilateral shoulder injury before 1999 working in [employer] home - Cataract of left eye - Cataracts, bilateral - HTN (hypertension) - Hyperlipidemia - Lung nodule 06/2015 - Macular degeneration - DESTINY (obstructive sleep apnea) s/p pharyngoplasty no cpap - Pseudophakia of right eye PAST SURGICAL HISTORY Procedure Laterality Date - EXCISION CHE NEUROMA EACH x3 - LASER SURGERY OF EYE 2002 correction of arterial hemmorhage left eye - PAST SURGICAL HISTORY OF 1967, breast bx - PAST SURGICAL HISTORY OF 2000 L3-5 laminectomy - PAST SURGICAL HISTORY OF bilateral heal spurs - PAST SURGICAL HISTORY OF Left 01/20/15 left total reverse shoulder surgery - PAST SURGICAL HISTORY OF Right 09/29/15 right total reverse shoulder surgery - PHARYNGOPLASTY (RECONSTRUCTION PHARYNX) 2002 d/t DESTINY - REMV CATARACT EXTRACAP,INSERT LENS Right - SCREENING COLONSCOPY NOT HIGH RISK 2010 - TONSILLECTOMY HX 2002 - TOTAL KNEE REPLACEMENT 2004 bilateral kneee FAMILY HISTORY Problem Relation Age of Onset - Breast Cancer Mother with mets - Cataract Mother - Cancer Father prostate with bone mets - Cataract Father - Cancer Brother colon; survivor x 10 yrs thus far. doing well - Cataract Brother - No Ocular Disease No Family History nothing known of ALLERGIES Allergen Reactions - Hydantoins Anaphylaxis throat swells ,hives - Phenytoin Anaphylaxis - Adhesive Tape (Callie* (more content not included)... Normal [facility] HISTORY PHYSICAL HNO ID: [id number] Author: ANNETTA SHARPE APRN.WEB PROGRAMMER Service: Neurosurgery Author Type: Nurse Practitioner Type: H&P Filed: 05/03/2023 14:18 Note Text: Neurosurgery Subarachnoid Hemorrhage History and Physical Exam PATIENT NAME: Carly Marcelino PRIMARY CARE PHYSICIAN: Hardeep Mckenzie DO CHIEF COMPLAINT: don't feel right HISTORY OF PRESENT ILLNESS: Carly Marcelino is a 82 year old right-handed woman w/PMH seizure disorder (forceps delivery at ), HTN, CAD/MS s/p PCI/Stent 12/01 on MADHAVI, BLE DVT 07/02 on apixaban, obesity, remote TOB use, asthma, OA, chronic back issues on baclofen, and decreased L eye vision d/t HTN admitted May 03, 2023 with RF cortical SAH. Patient states that has been under a great deal of stress lately (son 04/18/23, other family members recently). WISDOM first noted on . She states she had severe WISDOM which woke her up from sleep overnight, no associated sx. She presented to ED for WISDOM; CTH 04/20 negative for acute findings; CTA negative. Patient reported she was told it was migraine and she was d/magaly home. SBP 250s in ED. WISDOM improved/resolved following that time. This AM patient states she awoke well, and after she took her AM MADHAVI/apixaban she didn't feel right . Presented again to ED for sx and CTH demonstrates RF cortical SAH. SBP elevated/treated. Transferred to [facility] for care. Patient denies any recent seizures/new motor or sensory findings. Endorses that her visiual acuity isn't as good today as it usually is but no focal deficit. Risk factors: HTN, ASA/DOAC use (last dose 05/03 AM). Denies trauma. Denies personal/family history of hemorrhagic stroke or aneurysm. Premorbid MODIFIED TOM SCORE: 1 = No significant disability w/ symptoms. All usual activities/duties. PAST MEDICAL HISTORY PAST MEDICAL HISTORY Diagnosis Date Arterial aneurysm (HCC) left eye Asthma rare use of albuterol, controled with zafirlukast, advair Bilateral shoulder injury before 1999 working in [employer] home Cataract of left eye Cataracts, bilateral HTN (hypertension) Hyperlipidemia Lung nodule 06/2015 Macular degeneration DESTINY (obstructive sleep apnea) s/p pharyngoplasty no cpap Pseudophakia of right eye PAST SURGICAL HISTORY PAST SURGICAL HISTORY Procedure Laterality Date EXCISION CHE NEUROMA EACH x3 LASER SURGERY OF EYE 2002 correction of arterial hemmorhage left eye PAST SURGICAL HISTORY OF 1967, breast bx PAST SURGICAL HISTORY OF 2000 L3-5 laminectomy PAST SURGICAL HISTORY OF bilateral heal spurs PAST SURGICAL HISTORY OF Left 01/20/15 left total reverse shoulder surgery PAST SURGICAL HISTORY OF Right 09/29/15 right total reverse shoulder surgery PHARYNGOPLASTY (RECONSTRUCTION PHARYNX) 2002 d/t DESTINY REMV CATARACT EXTRACAP,INSERT LENS Right SCREENING COLONSCOPY NOT HIGH RISK 2010 TONSILLECTOMY HX 2003 TOTAL KNEE REPLACEMENT 2004 bilateral kneee FAMILY HISTORY FAMILY HISTORY Problem Relation Age of Onset Breast Cancer Mother with mets Cataract Mother Cancer Father prostate with bone mets Cataract Father Cancer Brother colon; survivor x 10 yrs thus far. doing well Cataract Brother No Ocular Disease No Family History nothing known of SOCIAL HISTORY Social History Tobacco Use Smoking status: Former Packs/day: 0.50 Years: 10.00 Additional pack years: 0.00 Total pack years: 5.00 Types: Cigarettes Quit date: 1976 Years since quittin.1 Smokeless tobacco: Never Vaping Use Vaping Use: Never used Substance Use Topics Alcohol use: Yes Comment: socially wine, beer Drug use: No Comment: denies tx for drug/alcohol abuse in the past. MEDICATIONS Prior to Admission Medications: montelukast (SINGULAIR) 10 mg tabletTake 10 mg by mouth once daily.Disp: Rfl: omega 2-ubj-drh-fish oil (FISH OIL) 100-160-1,000 mg capTake by mouth.Disp: Rfl: Walker misc front wheeled walker dx left knee hematoma, Print Requisition, CompoundDisp: Rfl: multivitamin (MULTIPLE VITAMINS ORAL) Refill(s) 0Disp: Rfl: baclofen (LIORESAL) 10 mg tabletBaclofen Baclofen Active 5 MG Oral Daily at bedtime August 01, 2017 3:16pm 08-01-2017 [facility] ([id number])Disp: Rfl: cetirizine 10 mg ODTCetirizine Cetirizine Active 10 MG Oral Daily August 01, 2017 3:16pm 08-01-2017 [facility] ([id number])Disp: Rfl: Cholecalciferol, Vitamin D3, (VITAMIN D-3) 2,000 unit capTake by mouth once daily.Disp: Rfl: docusate sodium (COLACE) 100 mg capsuleTake 100 mg by mouth once daily. as neededDisp: Rfl: magnesium oxide 400 mg capTake by mouth once daily.Disp: Rfl: triamterene-hydrochlorothi azide (DYAZIDE) 37.5-25 mg per capsuleTake 1 capsule by mouth once daily.Disp: Rfl: Vitamin E, dl, acetate, 1,000 unit capsuleTake 1,000 Units by mouth once daily.Disp: Rfl: B Complex Vitamins capsuleTake 1 capsule by mouth once daily.Disp: Rfl: losartan (COZAAR) 100 mg tabletTake 10 (more content not included)... Normal [facility] HbA1c (Bld)on 05-03-2023 Average glucose Estimated from glycated hemoglobin (Bld) [Mass/Vol] 94 mg/dL Normal [facility] Comment on above: Order Comment: Karey macdonald Type: BLOOD SPECIMENOrdering Facility: [facility] Address: [address] [place] [address] Result Comment: eAG: (Estimated average glucose) is a calculated value from HgbA1c and is district representative of the average blood glucose level in the last 2-3 month period. Performed By: #### 5 5454-3 ####[facility] LABIA [id number] [place] [address] [place] HbA1c (Bld) [Mass fraction] 4.9 % Normal 4.3-5.6 [facility] Comment on above: Order Comment: Karey macdonald Type: BLOOD SPECIMENOrdering Facility: [facility] Address: [address] [place] [address] Result Comment: [place] Diabetes Association guidelines indicate that patients with HgbA1c in the range 5.7-6.4% are at increased risk for development of diabetes, and intervention by lifestyle modification may be beneficial. HgbA1c greater or equal to 6.5% is considered diagnostic of diabetes. Performed By: #### 5 5454-3 ####[facility] LABCLIA [id number] [place] [address] [place] Hematocrit Auto (Bld) [Volum e fraction]on 05-03-2023 Hematocrit (Bld) [Volume fraction] 35.6 % 36.0-46.0 [facility] Hemoglobin [Mass/volume] in Bloodon 05-03-2023 Hemoglobin (Bld) [Mass/Vol] 11.5 g/dL 11.5-15.5 [facility] INR in Platelet poor plasma by Coagulation assayon 05-03-2023 INR Coag (PPP) [Relative time] 1.0 {INR} 0.9-1.3 [facility] Comment on above: Vitamin K Antagonist (VKA) Therapeutic Range: INR 2 to 3 (Target INR of 2.5)Note: For patients treated with VKA drugs, such as warfarin, the [place] [employer] 2012 Guideline recommends a therapeutic INR range of 2 to 3 (target INR of 2.5). This recommendation includes high-risk patients with antiphospholipid syndrome with previous arterial or venous thromboembolism, current-generation mechanical or bioprosthetic aortic heart valve replacement.Note: Patients with mechanical aortic valve replacement and additional risk factors for thromboembolic events (atrial fibrillation, previous thromboembolism, LV dysfunction, hypercoagulable conditions) or an older generation mechanical AVR (i.e., ball in-Cage) or any mechanical MVR should have a INR therapeutic range of 2.5 to 3.5 (target INR of 3).Dakotah GH, et al. Chest 2012, 141:7S-47SNishcaitlin RA, et al. [facility] 2017, 70: 252-289 Iron and Iron binding capaci ty panelon 05-03-2023 Iron [Mass/Vol] 66 ug/dL Normal 41-186 [facility] Comment on above: Order Comment: Speci men Type: BLOOD SPECIMENOrdering Facility: [facility] Address: [address] [place] [address] Performed By: #### 2 276-4, 2777-1, 30792-9, 30055-9, LIPNF, ####[facility] LABCLIA [id number] [place] [address], [place] [address] [place] Iron binding capacity [Mass/Vol] 233 ug/dL Normal 232-386 [facility] Comment on above: Order Comment: Speci men Type: BLOOD SPECIMENOrdering Facility: [facility] Address: [address] [place] [address] Performed By: #### 2 276-4, 2777-1, 75082-2, 31170-6, LIPNF, ####[facility] LABCLIA [id number] [address] [address] [place] Iron/TIBC [Molar ratio] 28.3 % Normal 15.0-57.0 [facility] Comment on above: Order Comment: Speci men Type: BLOOD SPECIMENOrdering Facility: [facility] Address: [address] [place] [address] Performed By: #### 2 276-4, 2777-1, 54217-6, 94050-8, LIPNF, 1987-07, ####[facility] LABCLIA [id number] [place] [address] [place] Iron binding capacity [Mass/ volume] in Serum or Plasmaon 05-03-2023 Iron binding capacity [Mass/Vol] 233 ug/dL 232-386 [facility] Iron saturation [Mass Fracti on] in Serum or Plasmaon 05-03-2023 Iron saturation [Mass fraction] 28.3 % 15.0-57.0 [facility] LIPID PANEL, NONFASTINGon Cholesterol [Mass/Vol] 125 mg/dL Normal <200 [facility] Comment on above: Order Comment: Speci men Type: BLOOD SPECIMENOrdering Facility: [facility] Address: [address] [place] [address] Result Comment: <200 mg/dL, Desirable 200-239 mg/dL, Borderline high >239 mg/dL, High Performed By: #### 2 276-4, 2777-1, 36703-0, , LIPNF, 1987-07, ####[facility] LABCLIA [id number] [place] [id number] [place] HDL CHOLESTEROL, NF 40 mg/dL Normal >39 [facility] Comment on above: Order Comment: Speci men Type: BLOOD SPECIMENOrdering Facility: [facility] Address: [address] [place] [address] Result Comment: 40-5 9 mg/dL, Acceptable >59 mg/dL, High: Negative risk factor for coronary heart disease <40 mg/dL, Low: Positive risk factor for coronary heart disease Performed By: #### 2 276-4, 7-1, 18462-2, , LIPNF, 1987-07, ####[facility] LABCLIA [id number] [address] [place] LDL CHOLESTEROL, NF 58 mg/dL Normal <100 [facility] Comment on above: Order Comment: Speci men Type: BLOOD SPECIMENOrdering Facility: [facility] Address: [address] [place] [address] Result Comment: <100 mg/dL, Optimal 100-129 mg/dL, Near optimal/above optimal 130-159 mg/dL, Borderline high 160-189 mg/dL, High >189 mg/dL, Very high Secondary prevention optimal LDL Cholesterol levels are recommended to be < 70 mg/dL Performed By: #### 2 276-4, 2776-, , , LIPNF, ####[facility] LABIA [id number] [address] STATES OF [facility] LDL/HDL RATIO, NF 1.45 mg/dL Normal <2.54 [facility] Comment on above: Order Comment: Dexteri men Type: BLOOD SPECIMENOrdering Facility: [facility] Address: [address] [place] [address] Result Comment: Refe rence: 1. National Cholesterol Education Program ATP III Guideline At-A-Glance Quick Desk Reference: National Heart, Lung, and Blood [place]. National Institutes of Health. 2001: NIH Publication No. 01-3305. 2. An International Atherosclerosis Society position paper: global recommendations for the management of dyslipidemia: executive summary, Atherosclerosis. 2014: 232(2):410-413. Performed By: #### 2 276-4, 7-1, 59250-3, 48931-8, LIPNF, 1987-07, ####[facility] LABCLIA [id number] [address] [place] NON HDL CHOL, NF 85 mg/dL Normal <130 [facility] Comment on above: Order Comment: Speci men Type: BLOOD SPECIMENOrdering Facility: [facility] Address: [address] [place] [address] Result Comment: <130 mg/dL, Optimal 130-159 mg/dL, Near optimal/above optimal 160-189 mg/dL, Borderline high 190-219 mg/dL, High >219 mg/dL, Very high Secondary prevention optimal non HDL Cholesterol levels are recommended to be <100 mg/dL Performed By: #### 2 276-4, 2777-1, 62784-3, 99628-7, LIPNF, 1987-07, ####[facility] LABCLIA [id number] [place] [address] [place] T CHOL/HDL RATIO NF 3.13 mg/dL Normal <5.10 [facility] Comment on above: Order Comment: Speci men Type: BLOOD SPECIMENOrdering Facility: [facility] Address: [address] [place] [address] Performed By: #### 2 276-4, 7-1, 56755-7, 75194-6, LIPNF, 1987-07, ####[facility] LABCLIA [id number] [place] [address] [place] TRIGLYCERIDES, NF 136 mg/dL Normal <150 [facility] Comment on above: Order Comment: Speci men Type: BLOOD SPECIMENOrdering Facility: [facility] Address: [address] [place] [address] Result Comment: <150 mg/dL, Normal 150-199 mg/dL, Borderline high 200-499 mg/dL, High >499 mg/dL, Very high Performed By: #### 2 276-4, 2777-1, 46953-1, 91159-3, LIPNF, 1987-07, ####[facility] LABCLIA [id number] [place] [id number] [place] VLDL CHOLESTEROL, NF 27 mg/dL Normal <30 [facility] Comment on above: Order Comment: Speci men Type: BLOOD SPECIMENOrdering Facility: [facility] Address: [address] [place] [address] Performed By: #### 2 276-4, 2777-1, 57909-7, 60342-1, LIPNF, 1988-5, 94063-4 ####[facility] LABCLIA [id number] [address] [place] [address] [place] Laboratory - Chemistry and C hemistry - challengeon 05-03-2023 Albumin [Mass/Vol] 3.5 g/dL 3.9-4.9 [facility] ALP [Catalytic activity/Vol] 52 U/L 34-123 [facility] ALT [Catalytic activity/Vol] 11 U/L 7-38 [facility] AST [Catalytic activity/Vol] 18 U/L 13-35 [facility] Bilirubin [Mass/Vol] 0.2 mg/dL 0.2-1.3 [facility] Calcium [Mass/Vol] 9.1 mg/dL 8.5-10.2 [facility] Chloride [Moles/Vol] 107 mmol/L 97-105 [facility] CO2 [Moles/Vol] 26 mmol/L 22-30 [facility] Creatinine [Mass/Vol] 0.94 mg/dL 0.58-0.96 [facility] Glucose [Mass/Vol] 97 mg/dL 74-99 [facility] Comment on above: The [place] Diabete s Association (ADA) provides guidance for cutoff values for fasting glucose and random glucose. The ADA defines fasting as no caloric intake for at least 8 hours. Fasting plasma glucose results between 100 to 125 mg/dL indicate increased risk for diabetes (prediabetes).Fasting plasma glucose results greater than or equal to 126 mg/dL meet the criteria for diagnosis of diabetes. In the absence of unequivocal hyperglycemia, results should be confirmed by repeat testing. In a patient with classic symptoms of hyperglycemia or hyperglycemic crisis, random plasma glucose results greater than or equal to 200 mg/dL meet the criteria for diagnosis of diabetes.Reference: Standards of Medical Care in Diabetes 2016, [place] [employer]. Diabetes Care. 2016.39(Suppl 1). Magnesium [Mass/Vol] 2.0 mg/dL 1.7-2.3 [facility] Potassium [Moles/Vol] 4.0 mmol/L 3.7-5.1 [facility] Protein [Mass/Vol] 5.8 g/dL 6.3-8.0 [facility] Sodium [Moles/Vol] 142 mmol/L 136-144 [facility] Urea nitrogen [Mass/Vol] 18 mg/dL 7-21 [facility] Cholesterol [Mass/Vol] 125 mg/dL <200 [facility] Comment on above: <200 mg/dL, Desirabl e 200-239 mg/dL, Borderline high>239 mg/dL, High Cholesterol in HDL [Mass/Vol] 40 mg/dL >39 [facility] Comment on above: 40-59 mg/dL, Accepta ble>59 mg/dL, High: Negative risk factor for coronary heart disease<40 mg/dL, Low: Positive risk factor for coronary heart disease Ferritin [Mass/Vol] 166.0 ng/mL 14.7-205.1 [facility] Iron [Mass/Vol] 66 ug/dL 41-186 [facility] Triglyceride [Mass/Vol] 136 mg/dL <150 [facility] Comment on above: <150 mg/dL, Normal 1 50-199 mg/dL, Borderline high 200-499 mg/dL, High>499 mg/dL, Very high Laboratory - Hematology and Cell countson 05-03-2023 Eosinophils (Bld) [#/Vol] 0.12 10*3/uL <0.46 [facility] Immature granulocytes/100 WBC (Bld) 0.3 % [facility] HbA1c (Bld) [Mass fraction] 4.9 % 4.3-5.6 [facility] Comment on above: [place] Diabetes As sociation guidelines indicate that patients with HgbA1c in the range 5.7-6.4% are at increased risk for development of diabetes, and intervention by lifestyle modification may be beneficial. HgbA1c greater or equal to 6.5% is considered diagnostic of diabetes. Leukocytes [#/volume] correc jamila for nucleated erythrocytes in Blood by Automated counon 05-03-2023 WBC corrected for nucl RBC Auto (Bld) [#/Vol] 6.60 k/uL 3.70-11.00 [facility] Lymphocytes Auto (Bld) [#/Vo l]on 05-03-2023 Lymphocytes (Bld) [#/Vol] 1.43 10*3/uL 1.00-4.00 [facility] Lymphocytes/100 WBC Auto (Bl d)on 05-03-2023 Lymphocytes/100 WBC (Bld) 21.7 % [facility] MCH Auto (RBC) [Entitic mass ]on 05-03-2023 MCH (RBC) [Entitic mass] 29.7 pg 26.0-34.0 [facility] MCHC Auto (RBC) [Mass/Vol]on 05-03-2023 MCHC (RBC) [Mass/Vol] 32.3 g/dL 30.5-36.0 [facility] MCV Auto (RBC) [Entitic vol] on 05-03-2023 MCV (RBC) [Entitic vol] 92.0 fL 80.0-100.0 [facility] Magnesium SerPl-mCncon 05-03 Magnesium [Mass/Vol] 2.0 mg/dL Normal 1.7-2.3 [facility] Comment on above: Order Comment: Speci men Type: BLOOD SPECIMENOrdering Facility: [facility] Address: [address] [place] [address] Performed By: #### 2 276-4, 2777-1, 17999-1, 79411-7, LIPNF, 1987-5, 26154-2 ####[facility] LABCLIA [id number] [place] [address] [place] Monitor Recordon 05-03-2023 Monitor Record [id number]#[id number] Normal [facility] Monocytes Auto (Bld) [#/Vol] on 05-03-2023 Monocytes (Bld) [#/Vol] 0.60 10*3/uL <0.87 [facility] Monocytes/100 WBC Auto (Bld) on 05-03-2023 Monocytes/100 WBC (Bld) 9.1 % [facility] Neutrophils Auto (Bld) [#/Vo l]on 05-03-2023 Neutrophils (Bld) [#/Vol] 4.39 10*3/uL 1.45-7.50 [facility] Neutrophils/100 WBC Auto (Bl d)on 05-03-2023 Neutrophils/100 WBC (Bld) 66.5 % [facility] No Panel Informationon 05-03 Estimated GFR (CKD-EPI) 60 mL/min/1.73m??? >=60 [facility] Comment on above: Estimated Glomerular Filtration Rate (eGFR) is calculated using the 2020 CKD-EPI creatinine equation. This equation utilizes serum creatinine, sex, and age as parameters. The creatinine assay has traceable calibration to isotope dilution-mass spectrometry. Refer to KDIGO guidelines for clinical interpretation. In patients with unstable renal function, e.g. those with acute kidney injury, the eGFR may not accurately reflect actual GFR. Immature Granulocyte # (Auto) <0.03 k/uL <0.10 [facility] Ionized Calcium (pH Adjusted) 1.20 mmol/L 1.08-1.30 [facility] Phosphorus Level 3.1 mg/dL 2.7-4.8 [facility] Staphylococcus aureus (PCR)(LAB) See comment Negative [facility] Comment on above: Negative for Staphyl ococcus aureus by PCR.Negative for MRSA by PCR C-Reactive Protein, Quantitative <0.3 mg/dL <0.9 [facility] Cholesterol Ratio (LDL/HDL) 1.45 mg/dL <2.54 [facility] Comment on above: Reference:1. Hao godinez Cholesterol Education Program ATP III Guideline At-A-Glance Quick Desk Reference: National Heart, Lung, and Blood [place]. National Institutes of Health. 2001: NIH Publication No. 01-3305.2. An International Atherosclerosis Society position paper: global recommendations for the management of dyslipidemia: executive summary, Atherosclerosis. 2014: 232(2):410-413. Non-HDL Cholesterol 85 mg/dL <130 [facility] Comment on above: <130 mg/dL, Optimal 130-159 mg/dL, Near optimal/above optimal 160-189 mg/dL, Borderline high 190-219 mg/dL, High>219 mg/dL, Very highSecondary prevention optimal non HDL Cholesterol levels are recommended to be <100 mg/dL Nucleated RBC Auto (Bld) [#/ Vol]on 05-03-2023 Nucleated RBC (Bld) [#/Vol] 10*3/uL <0.01 [facility] Nucleated erythrocytes [Pres ence] in Blood by Automated counton 05-03-2023 Nucleated RBC Auto Ql (Bld) 0.0 /100{WBC} [facility] PT panel Coag (PPP)on 2023 INR Coag (PPP) [Relative time] 1.0 {INR} Normal 0.9-1.3 [facility] Comment on above: Order Comment: Speci men Type: BLOOD SPECIMENOrdering Facility: [facility] Address: [address] [place] [address] Result Comment: Jojo min K Antagonist (VKA) Therapeutic Range: INR 2 to 3 (Target INR of 2.5) Note: For patients treated with VKA drugs, such as warfarin, the [place] [employer] 2012 Guideline recommends a therapeutic INR range of 2 to 3 (target INR of 2.5). This recommendation includes high-risk patients with antiphospholipid syndrome with previous arterial or venous thromboembolism, current-generation mechanical or bioprosthetic aortic heart valve replacement. Note: Patients with mechanical aortic valve replacement and additional risk factors for thromboembolic events (atrial fibrillation, previous thromboembolism, LV dysfunction, hypercoagulable conditions) or an older generation mechanical AVR (i.e., ball in-Cage) or any mechanical MVR should have a INR therapeutic range of 2.5 to 3.5 (target INR of 3). Dakotah GUERRA, et al. Chest 2012, 141:7S-47S Maribel RA, et al. JACC 2017, 70: 252-289 Performed By: #### 3 4528-0, 51487-8 ####[facility] LABCLIA [id number] [place] [address] [place] PT Coag (PPP) [Time] 10.7 s Normal 9.7-13.0 [facility] Comment on above: Order Comment: Speci men Type: BLOOD SPECIMENOrdering Facility: [facility] Address: [address] [place] [address] Performed By: #### 3 4528-0, 01398-6 ####[facility] LABCLIA [id number] [place] [address] [place] Phosphate SerPl-mCncon 05-03 Phosphate [Mass/Vol] 2.8 mg/dL Normal 2.7-4.8 [facility] Comment on above: Order Comment: Speci men Type: BLOOD SPECIMENOrdering Facility: [facility] Address: [address] [place] [address] Performed By: #### 2 276-4, 2777-1, 30327-8, 84430-1, LIPNF, 1988-5, 25600-4 ####[facility] LABCLIA [id number] [place] [address] [place] Platelet mean volume Auto (B ld) [Entitic vol]on 05-03-2023 Platelet mean volume (Bld) [Entitic vol] 9.4 fL 9.0-12.7 [facility] Platelets Auto (Bld) [#/Vol] on 05-03-2023 Platelets (Bld) [#/Vol] 177 10*3/uL 150-400 [facility] Pre-Arrival Noteon 4 Pre-Arrival Note Normal [facility] Prothrombin time (PT)on 04-13 PT Coag (PPP) [Time] 10.7 s 9.7-13.0 [facility] RBC Auto (Bld) [#/Vol]on RBC (Bld) [#/Vol] 3.87 10*6/uL 3.90-5.20 [facility] STAPH AUREUS PCRon S. aureus and MRSA panel ALEXANDRU+probe (Nose) Normal Negative [facility] Comment on above: Order Comment: Speci men Type: SWAB OF INTERNAL NOSEOrdering Facility: [facility] Address: [address] [place] [address] Result Comment: Nega tive for Staphylococcus aureus by PCR. Negative for MRSA by PCR Performed By: #### S APCR ####[facility] LABCLIA [id number] [place] [address] [place] Serum ionized calcium measur ement using ion specific electrode (mass/volume)on 05-03-2023 Calcium.ionized ISE [Mass/Vol] 1.18 mmol/L 1.08-1.30 [facility] Serum or plasma anion gap de terminationon 05-03-2023 Anion gap [Moles/Vol] 9 mmol/L 9-18 [facility] Serum or plasma total choles terol/high density lipoprotein (HDL) cholesterol mass roseanne 05-03-2023 Cholesterol.total/Chol esterol in HDL [Mass ratio] 3.13 mg/dL <5.10 [facility] TYPE + SCREENon 05-03-2023 ABO A Normal [facility] Comment on above: Order Comment: Speci men Type: BLOOD SPECIMENOrdering Facility: [facility] Address: [address] [place] [address] Performed By: #### T SCR ####[facility] BLOOD BANKIA [id number] [place] [address] [place] HISTORICAL AB SCR STATUS Negative Normal [facility] Comment on above: Order Comment: Speci men Type: BLOOD SPECIMENOrdering Facility: [facility] Address: [address] [place] [address] Performed By: #### T SCR ####[facility] BLOOD BANKCLIA [id number] [place] [address] [place] Rh Nom (Bld) Positive Normal [facility] Comment on above: Order Comment: Speci men Type: BLOOD SPECIMENOrdering Facility: [facility] Address: [address] [place] [address] Performed By: #### T SCR ####[facility] BLOOD BANKCLIA [id number] [address] [address] [facility] TYPE AND SCREEN EXPIRATION 05/06/2023 23:59 Normal [facility] Comment on above: Order Comment: Speci men Type: BLOOD SPECIMENOrdering Facility: [facility] Address: [address] [place] [id number] Performed By: #### T SCR ####CC [facility]IN BLOOD BANKCLIA [id number] [address] Transfer Documentson 024 Transfer Documents [id number] Normal [facility] Troponin 0 Hr.on 05-03-2023 Troponin 5.90 pg/mL Low 10.10-27.1 0 [facility] Comment on above: Result Comment: The 95% CI (Confidence Interval) PPV (Positive Predictive Value) for myocardial infarction in females is 38 pg/mL, in males 51 pg/mL. The results should be used in conjunction with clinical conditions of myocardial infarction.(Access High Sensitivity Troponin I Instructions For Use, Raegan VSporto, October 2017) Performed By: #### 2 [id number], [id number], [id number], [id number] ####[facility] [address] [place] [address] XR CHEST 1V FRONTAL PORTon 0 05-03-2023 XR CHEST 1V FRONTAL PORT * * *Final Report* * * DATE OF EXAM: May 03 2023 6:48PM WINDY 5376 - XR CHEST 1V FRONTAL PORT / PROCEDURE REASON: Mental status change * * * * Physician Interpretation * * * * EXAMINATION: CHEST RADIOGRAPH (PORTABLE SINGLE VIEW AP) Exam Date/Time: 05/03/2023 6:48 PM Clinical History: Mental status change, Focal neuro deficit MQ: [id number] Comparison: Same day RESULT: EVALUATION IS LIMITED BY OVERLYING EXTERNAL SHADOWS, INCLUDING MONITORING WIRES Lines, tubes, and devices: None. Lungs and pleura: Increase of partial atelectasis at the bases. Prominence of the lung markings bilaterally could be due to crowded vessels given the low lung volume. Underlying mild interstitial edema or inflammation cannot be entirely excluded. Right hemidiaphragm elevation remains. No pleural effusion or pneumothorax. Cardiomediastinal silhouette: Normal-sized heart. Thoracic aorta is tortuous with atherosclerotic calcifications. Other: Bilateral shoulder arthroplasties. IMPRESSION: See result. Pulp Drier: ZENIA Transcribe Date/Time: May 03 2023 7:48P Dictated by : ANANDA CANSECO MD This examination was interpreted and the report reviewed and electronically signed by: ANANDA CANSECO MD on May 03 2023 7:51PM EST [id number] Normal [facility] XR Chest Single Viewon 05-03 XR Chest Single View Normal [facility] aPTT PPPon 05-03-2023 aPTT Coag (PPP) [Time] 29.4 s Normal 23.0-32.4 Cl [facility] Comment on above: Order Comment: Speci men Type: BLOOD SPECIMENOrdering Facility: [facility] Address: [address] [place] [address] Performed By: #### 3 4528-0, 07612-4 ####[facility] LABCLIA [id number] [place] [address] [place] eGFRon 05-03-2023 eGFR 63 mL/min/1.73 m2 Normal >=59 [facility] Comment on above: Order Comment: Order added by Discern Expert. Performed By: #### 2 [id number], [id number], [id number], [id number] ####[facility] [address] [place] [id number] US venous duplex LE BIon US venous duplex LE [facility] Main [place] [address] [place] [id number] Ultrasound Report Signed Patient: Carly Marcelino MR#: [id number] : 1940 Acct:[id number] Age/Sex: 82 / F ADM Date: 04/30/23 Loc: ER Room: Type: [facility] ER Attending Dr: Ordering Provider: Valerie Ponce APRN Date of Service: 04/30/23 US/US venous duplex LE BI: pain Copies to: Valerie Ponce APRN BILATERAL LOWER EXTREMITY VENOUS DUPLEX INDICATION: Pain and swelling of the bilateral lower extremities. PROCEDURE: Color-flow duplex scanning is used to interrogate the deep venous system of the right and left lower extremities. The common femoral vein, femoral vein and popliteal vein show good compressibility with normal proximal and distal augmentation. The calf veins are compressible. US/US venous duplex LE BI IMPRESSION: NO EVIDENCE FOR DEEP VEIN THROMBOSIS OR PROXIMAL SUPERFICIAL THROMBOPHLEBITIS IN THE RIGHT OR LEFT LOWER EXTREMITY. Impression dictated by: Ross Sandy MD05/01/2023 9:51 AM Dictation Location: [place] [address] Tech: Daina Villaloboskevyn Transcribed By: MICHELINE 05/01/23950 Dictated By: Ross Sandy MD 05/01/23949 Signed By: 05/01/23950 Normal [facility] Activated partial thrombopla stin time (aPTT) in platelet poor plasma by coagulation aOrdered By: Barrett Olivares on 04-30-2023 aPTT Coag (PPP) [Time] 35.5 s 25.1-36.5 [facility] Comment on above: A hematocrit value g reater than 55% may lead to inaccurate results in coagulation testing. Patients having hematocrit values >55% require a special collection tube for coagulation studies. Please contact the laboratory at [phone] for redraw instructions. Alanine aminotransferase [En zymatic activity/volume] in Serum or PlasmaOrdered By: Barrett Olivares on 04-30-2023 ALT [Catalytic activity/Vol] 12 U/L 7-52 [facility] Albumin [Mass/volume] in Ser um or Plasma by Bromocresol green (BCG) dye binding methoOrdered By: Barrett Olivares on 04-30-2023 Albumin BCG dye [Mass/Vol] 4.4 g/dL 3.5-5.7 [facility] Alkaline phosphatase [Enzyma tic activity/volume] in Serum or PlasmaOrdered By: Barrett Olivares on 04-30-2023 ALP [Catalytic activity/Vol] 52 U/L 34-104 [facility] Aspartate aminotransferase [ Enzymatic activity/volume] in Serum or PlasmaOrdered By: Barrett Olivares on 04-30-2023 AST [Catalytic activity/Vol] 23 U/L 13-39 [facility] B-Type Natriuretic Peptideon 04-30-2023 Natriuretic peptide B (Bld) [Mass/Vol] 140.0 pg/mL High 5-100 [facility] Comment on above: Result Comment: PERF ORMED BY: [facility] [address] [place] [address] PATHOLOGIST ELECTRIC PILE DRIVER OPERATOR VICKI PERRY M.D. Performed By: #### C K, PT, PTT, MG, BNP, CMP, CBC, HS TROP #### [facility] [address] Basophils Auto (Bld) [#/Vol] Ordered By: Barrett Olivares on 04-30-2023 Basophils (Bld) [#/Vol] 0.0 10*3/uL 0.0-0.2 [facility] Basophils/100 WBC Auto (Bld) Ordered By: Barrett Olivares on 04-30-2023 Basophils/100 WBC (Bld) 0.5 % . [facility] Bilirubin Test strip Ql (U)O rdered By: PROVIDER TEMP on 04-30-2023 Bilirubin Ql (U) Negative Negative [facility] Bilirubin.total [Mass/volume ] in Serum or PlasmaOrdered By: Barrett Olivares on 04-30-2023 Bilirubin [Mass/Vol] 0.5 mg/dL 0.3-1.0 [facility] Calcium [Mass/volume] in Ser um or PlasmaOrdered By: Barrett Olivares on 04-30-2023 Calcium [Mass/Vol] 9.5 mg/dL 8.6-10.3 [facility] Carbon dioxide, total [Moles /volume] in Serum or PlasmaOrdered By: Barrett Olivares on 04-30-2023 CO2 [Moles/Vol] 29.0 mmol/L 21.0-31.0 [facility] Chloride [Moles/volume] in [place] or PlasmaOrdered By: Barrett Olivares on 04-30-2023 Chloride [Moles/Vol] 102 mmol/L 98-107 [facility] Color Auto (U)Ordered By: ESTELITA FRASER TEMP on 04-30-2023 Color (U) Yellow Yellow [facility] Complete Blood Count Auto Di ffon 04-30-2023 Basophils (Bld) [#/Vol] 0.0 10*3/uL Normal 0.0-0.2 [facility] Comment on above: Result Comment: PERF ORMED BY: [place] [address] PATHOLOGIST ELECTRIC PILE DRIVER OPERATOR VICKI PERRY M.D. Performed By: #### C K, PT, PTT, MG, BNP, CMP, CBC, HS TROP #### [address] Basophils/100 WBC (Bld) 0.5 % Normal . [facility] Comment on above: Performed By: #### C K, PT, PTT, MG, BNP, CMP, CBC, HS TROP #### [address] Eosinophils (Bld) [#/Vol] 0.1 10*3/uL Normal 0.0-0.45 [facility] Comment on above: Performed By: #### C K, PT, PTT, MG, BNP, CMP, CBC, HS TROP #### [address] Eosinophils/100 WBC (Bld) 1.2 % Normal . [facility] Comment on above: Performed By: #### C K, PT, PTT, MG, BNP, CMP, CBC, HS TROP #### [address] Erythrocyte distribution width (RBC) [Ratio] 14.6 % Normal 11.9-15.3 [facility] Comment on above: Performed By: #### C K, PT, PTT, MG, BNP, CMP, CBC, HS TROP #### [address] Hematocrit (Bld) [Volume fraction] 39.9 % Normal 34.0-46.4 [facility] Comment on above: Performed By: #### C K, PT, PTT, MG, BNP, CMP, CBC, HS TROP #### [address] Hemoglobin (Bld) [Mass/Vol] 13.3 g/dL Normal 11.8-15.4 [facility] Comment on above: Performed By: #### C K, PT, PTT, MG, BNP, CMP, CBC, HS TROP #### [address] Lymphocytes (Bld) [#/Vol] 1.2 10*3/uL Normal 1.00-4.8 [facility] Comment on above: Performed By: #### C K, PT, PTT, MG, BNP, CMP, CBC, HS TROP #### [address] Lymphocytes/100 WBC (Bld) 18.6 % Normal . [facility] Comment on above: Performed By: #### C K, PT, PTT, MG, BNP, CMP, CBC, HS TROP #### [address] MCH (RBC) [Entitic mass] 29.7 pg Normal 24.7-34.3 [facility] Comment on above: Performed By: #### C K, PT, PTT, MG, BNP, CMP, CBC, HS TROP #### [address] MCV (RBC) [Entitic vol] 89.3 fL Normal 80-100 [facility] Comment on above: Performed By: #### C K, PT, PTT, MG, BNP, CMP, CBC, HS TROP #### [address] Mean Corpuscular HGB Conc 33.3 g/dL Normal 32.0-35.0 [facility] Comment on above: Performed By: #### C K, PT, PTT, MG, BNP, CMP, CBC, HS TROP #### [address] Monocytes (Bld) [#/Vol] 0.5 10*3/uL Normal 0.0-0.8 [facility] Comment on above: Performed By: #### C K, PT, PTT, MG, BNP, CMP, CBC, HS TROP #### [address] Monocytes/100 WBC (Bld) 17.64 % Normal 0.00-20.00 [facility] Comment on above: Performed By: #### C K, PT, PTT, MG, BNP, CMP, CBC, HS TROP #### [address] Monocytes/100 WBC (Bld) 7.6 % Normal . [facility] Comment on above: Performed By: #### C K, PT, PTT, MG, BNP, CMP, CBC, HS TROP #### [address] Neutrophils (Bld) [#/Vol] 4.7 10*3/uL Normal 1.8-7.7 [facility] Comment on above: Performed By: #### C K, PT, PTT, MG, BNP, CMP, CBC, HS TROP #### [address] Neutrophils/100 WBC (Bld) 72.1 % Normal . [facility] Comment on above: Performed By: #### C K, PT, PTT, MG, BNP, CMP, CBC, HS TROP #### [place] [address] [place] NRBC% 0.2 /100{WBC} Normal 0-0.5 [facility] Comment on above: Performed By: #### C K, PT, PTT, MG, BNP, CMP, CBC, HS TROP #### [address] Platelet mean volume (Bld) [Entitic vol] 7.5 fL Normal 6.3-10.7 [facility] Comment on above: Performed By: #### C K, PT, PTT, MG, BNP, CMP, CBC, HS TROP #### [place] [address] [place] Platelets (Bld) [#/Vol] 216 10*3/uL Normal 150-450 [facility] Comment on above: Performed By: #### C K, PT, PTT, MG, BNP, CMP, CBC, HS TROP #### [facility] [address] RBC (Bld) [#/Vol] 4.47 10*6/uL Normal 3.60-5.00 [facility] Comment on above: Performed By: #### C K, PT, PTT, MG, BNP, CMP, CBC, HS TROP #### [facility] [address] WBC (Bld) [#/Vol] 6.5 10*3/uL Normal 3.8-11.6 [facility] Comment on above: Performed By: #### C K, PT, PTT, MG, BNP, CMP, CBC, HS TROP #### [facility] [address] Comprehensive Metabolic Pane parviz 04-30-2023 Albumin [Mass/Vol] 4.4 g/dL Normal 3.5-5.7 [facility] Comment on above: Performed By: #### C K, PT, PTT, MG, BNP, CMP, CBC, HS TROP ####[facility] Albumin/Globulin [Mass ratio] 1.5 {ratio} Normal [facility] Comment on above: Performed By: #### C K, PT, PTT, MG, BNP, CMP, CBC, HS TROP ####[facility] ALP [Catalytic activity/Vol] 52 U/L Normal 34-104 [facility] Comment on above: Performed By: #### C K, PT, PTT, MG, BNP, CMP, CBC, HS TROP ####[facility] ALT [Catalytic activity/Vol] 12 U/L Normal 7-52 [facility] Comment on above: Performed By: #### C K, PT, PTT, MG, BNP, CMP, CBC, HS TROP ####[address] [address] [facility] Anion gap [Moles/Vol] 9.7 mmol/L Normal 6.0-15.0 [facility] Comment on above: Performed By: #### C K, PT, PTT, MG, BNP, CMP, CBC, HS TROP ####[place] [id number] [facility] AST [Catalytic activity/Vol] 23 U/L Normal 13-39 [facility] Comment on above: Performed By: #### C K, PT, PTT, MG, BNP, CMP, CBC, HS TROP ####[place] [id number] [facility] Bilirubin [Mass/Vol] 0.5 mg/dL Normal 0.3-1.0 [facility] Comment on above: Performed By: #### C K, PT, PTT, MG, BNP, CMP, CBC, HS TROP ####[place] [id number] [facility] Calcium [Mass/Vol] 9.5 mg/dL Normal 8.6-10.3 [facility] Comment on above: Performed By: #### C K, PT, PTT, MG, BNP, CMP, CBC, HS TROP ####[place] [id number] [facility] Chloride [Moles/Vol] 102 mmol/L Normal 98-107 [facility] Comment on above: Performed By: #### C K, PT, PTT, MG, BNP, CMP, CBC, HS TROP ####[place] [id number] [facility] HOSPITAL CO2 [Moles/Vol] 29.0 mmol/L Normal 21.0-31.0 [facility] Comment on above: Performed By: #### C K, PT, PTT, MG, BNP, CMP, CBC, HS TROP ####[place] [id number] [facility] Creatinine [Mass/Vol] 0.73 mg/dL Normal 0.60-1.20 [facility] Comment on above: Performed By: #### C K, PT, PTT, MG, BNP, CMP, CBC, HS TROP ####[place] [address] [place] [id number] [facility] Creatinine Clr Calc Pharmacy 58.71 [facility] Comment on above: Performed By: #### C K, PT, PTT, MG, BNP, CMP, CBC, HS TROP ####[place] [address] [place] [id number] [facility] GFR/1.73 sq M.predicted MDRD (S/P/Bld) [Vol rate/Area] mL/min/{1.73_m2} [facility] Comment on above: Performed By: #### C K, PT, PTT, MG, BNP, CMP, CBC, HS TROP ####[place] [address] [place] [id number] [facility] Globulin (S) [Mass/Vol] 2.9 g/dL [facility] Comment on above: Performed By: #### C K, PT, PTT, MG, BNP, CMP, CBC, HS TROP ####[place] [address] [place] [id number] [facility] Glucose [Mass/Vol] 86 mg/dL Normal 70-100 [facility] Comment on above: Result Comment: [facility] Glucose Reference Range is dependent on time and content of last meal. Glucose of more than 200 mg/dL in a nonstressed, ambulatory subject supports the diagnosis of Diabetes Mellitus. ADA recommended reference range Performed By: #### C K, PT, PTT, MG, BNP, CMP, CBC, HS TROP ####[place] [address] [place] [address] [facility] Potassium [Moles/Vol] 3.7 mmol/L Normal 3.5-5.1 [facility] Comment on above: Performed By: #### C K, PT, PTT, MG, BNP, CMP, CBC, HS TROP ####[place] [address] [place] [id number] [facility] Protein [Mass/Vol] 7.3 g/dL Normal 6.4-8.9 [facility] Comment on above: Performed By: #### C K, PT, PTT, MG, BNP, CMP, CBC, HS TROP ####[facility] Sodium [Moles/Vol] 137 mmol/L Normal 136-145 [facility] Comment on above: Performed By: #### C K, PT, PTT, MG, BNP, CMP, CBC, HS TROP ####[facility] Urea nitrogen [Mass/Vol] 14 mg/dL Normal 7-25 [facility] Comment on above: Performed By: #### C K, PT, PTT, MG, BNP, CMP, CBC, HS TROP ####[facility] [address] [place] [id number] [facility] Creatine Kinaseon 04-30-2023 CK [Catalytic activity/Vol] 66 U/L Normal 30- [facility] Comment on above: Performed By: #### C K, PT, PTT, MG, BNP, CMP, CBC, HS TROP #### [facility] [address] [place] [id number] [facility] Creatine kinase [Enzymatic a ctivity/volume] in Serum or PlasmaOrdered By: Barrett Olivares on 04-30-2023 CK [Catalytic activity/Vol] 66 U/L 30- [facility] Creatinine [Mass/volume] in Serum or PlasmaOrdered By: Barrett Olivares on 04-30-2023 Creatinine [Mass/Vol] 0.73 mg/dL 0.60-1.20 [facility] ECG 12 lead ECGon 04-30-2023 ECG 12 lead ECG [facility] [address] [place] [address] Electrocardiograph Report Signed Patient: Carly Marcelino MR#: [id number] : 1940 Acct:[id number] Age/Sex: 82 / F ADM Date: 04/30/23 Loc: ER Room: Type: [facility] ER Attending Dr: Ordering Provider: Valerie Ponce APRN Date of Service: 04/30/23 ECG/ECG 12 lead ECG: Neuro Symptoms/Deficit Copies to: Test Reason : Blood Pressure : 208/088 mmHG Vent. Rate : 058 BPM Atrial Rate : 058 BPM P-R Int : 184 ms QRS Dur : 076 ms QT Int : 438 ms P-R-T Axes : 075 010 055 degrees QTc Int : 429 ms Sinus bradycardia Otherwise normal ECG When compared with ECG of 17-JAN-2019 16:54, No significant change was found Confirmed by [facility] CAREMELISSA ([id number]) on 05/01/2023 4:15:11 PM Referred By: Electronically Signed By:MELISSA GARCIA MD [facility] Transcribed By: MUS Signed By Joseph Garcia MD 05/01/23 1615 Normal [facility] Eosinophils Auto (Bld) [#/Vo l]Ordered By: Barrett Olivares on 04-30-2023 Eosinophils (Bld) [#/Vol] 0.1 10*3/uL 0.0-0.45 [facility] Eosinophils/100 WBC Auto (Bl d)Ordered By: Barrett Olivares on 04-30-2023 Eosinophils/100 WBC (Bld) 1.2 % . [facility] Erythrocyte distribution wid th Auto (RBC) [Ratio]Ordered By: Barrett Olivares on 04-30-2023 Erythrocyte distribution width (RBC) [Ratio] 14.6 % 11.9-15.3 [facility] Globulin Calc (S) [Mass/Vol] Ordered By: Barrett Olivares on 04-30-2023 Globulin (S) [Mass/Vol] 2.9 g/dL [facility] Glucose [Mass/volume] in Ser um or PlasmaOrdered By: Barrett Olivares on 04-30-2023 Glucose [Mass/Vol] 86 mg/dL 70-100 [facility] Comment on above: ADA recommended refe rence rangeRandom Glucose Reference Range is dependent on time and content of last meal. Glucose of more than 200 mg/dL in a nonstressed, ambulatory subject supports the diagnosis of Diabetes Mellitus. Hematocrit Auto (Bld) [Volum e fraction]Ordered By: Barrett Olivares on 04-30-2023 Hematocrit (Bld) [Volume fraction] 39.9 % 34.0-46.4 [facility] Hemoglobin [Mass/volume] in BloodOrdered By: Barrett Olivares on 04-30-2023 Hemoglobin (Bld) [Mass/Vol] 13.3 g/dL 11.8-15.4 [facility] INR in Platelet poor plasma by Coagulation assayOrdered By: Barrett Olivares on 04-30-2023 INR Coag (PPP) [Relative time] 1.0 {INR} [facility] Comment on above: INR Therapeutic Rang e A) Pre- and Peroperative OAT started two weeks before surgery. NOT HIP SURGERY: 1.5 - 2.5 HIP SURGERY: 2 - 3B) Primary and secondary prevention of venous THROMBOSIS: 2 - 3C) Active venous thrombosis, pulmonary embolismand prevention of recurrent venous thrombosis: 2 - 3D) Prevention of arterial thromboembolismincluding patients with mechanical heart valves: 3 - 4.5 Ketones Auto test strip (U) [Mass/Vol]Ordered By: RACHEL CRUZ on 04-30-2023 Ketones (U) [Mass/Vol] Negative Negative Fi [facility] Leukocytes [#/volume] correc jamila for nucleated erythrocytes in Blood by Automated counOrdered By: Barrett Olivares on 04-30-2023 WBC corrected for nucl RBC Auto (Bld) [#/Vol] 6.5 10*3/uL 3.8-11.6 [facility] Lymphocytes Auto (Bld) [#/Vo l]Ordered By: Barrett Olivares on 04-30-2023 Lymphocytes (Bld) [#/Vol] 1.2 10*3/uL 1.00-4.8 [facility] Lymphocytes/100 WBC Auto (Bl d)Ordered By: Barrett Olivares on 04-30-2023 Lymphocytes/100 WBC (Bld) 18.6 % . [facility] MCH Auto (RBC) [Entitic mass ]Ordered By: Barrett Olivares on 04-30-2023 MCH (RBC) [Entitic mass] 29.7 pg 24.7-34.3 [facility] MCHC Auto (RBC) [Mass/Vol]Or dered By: Barrett Olivares on 04-30-2023 MCHC (RBC) [Mass/Vol] 33.3 g/dL 32.0-35.0 [facility] MCV Auto (RBC) [Entitic vol] Ordered By: Barrett Olivares on 04-30-2023 MCV (RBC) [Entitic vol] 89.3 fL 80-100 [facility] Magnesiumon 04-30-2023 Magnesium [Mass/Vol] 2.0 mg/dL Normal 1.9-2.7 [facility] Comment on above: Result Comment: PERF ORMED BY: [facility] [address] [place] [address] PATHOLOGIST ELECTRIC PILE DRIVER OPERATOR VICKI PERRY M.D. Performed By: #### C K, PT, PTT, MG, BNP, CMP, CBC, HS TROP ####[facility] [id number] [place] [address] [facility] Magnesium [Mass/volume] in [place] or PlasmaOrdered By: Barrett Olivares on 04-30-2023 Magnesium [Mass/Vol] 2.0 mg/dL 1.9-2.7 [facility] Monocyte distribution width [Entitic volume] in Blood by AutomatedOrdered By: Barrett Olivares on 04-30-2023 Monocyte distribution width Auto (Bld) [Entitic vol] 17.64 % 0.00-20.00 [facility] Monocytes Auto (Bld) [#/Vol] Ordered By: Barrett Olivares on 04-30-2023 Monocytes (Bld) [#/Vol] 0.5 10*3/uL 0.0-0.8 [facility] Monocytes/100 WBC Auto (Bld) Ordered By: Barrett Olivares on 04-30-2023 Monocytes/100 WBC (Bld) 7.6 % . [facility] Natriuretic peptide B [Mass/ Vol]Ordered By: Barrett Olivares on 04-30-2023 Natriuretic peptide B (Bld) [Mass/Vol] 140.0 pg/mL 5-100 [facility] Neutrophils Auto (Bld) [#/Vo l]Ordered By: Barrett Olivares on 04-30-2023 Neutrophils (Bld) [#/Vol] 4.7 10*3/uL 1.8-7.7 [facility] Neutrophils/100 WBC Auto (Bl d)Ordered By: Barrett Olivares on 04-30-2023 Neutrophils/100 WBC (Bld) 72.1 % . [facility] Nitrite Test strip Ql (U)Ord ered By: PROVIDER TEMP on 04-30-2023 Nitrite Ql (U) Negative Negative [facility] No Panel InformationOrdered By: Barrett Olivares on 04-30-2023 Estimated GFR (CKD-EPI) > 60.0 mL/Min [facility] Creatinine Clearance (Chem 58.71 [facility] Nucleated erythrocytes [Pres ence] in Blood by Automated countOrdered By: Barrett Olivares on 04-30-2023 Nucleated RBC Auto Ql (Bld) 0.2 /100{WBC} 0-0.5 [facility] Partial Thromboplastin Timeo n 04-30-2023 aPTT Coag (Bld) [Time] 35.5 s Normal 25.1-36.5 [facility] Comment on above: Result Comment: A he matocrit value greater than 55% may lead to inaccurate results in coagulation testing. Patients having hematocrit values >55% require a special collection tube for coagulation studies. Please contact the laboratory at [phone] for redraw instructions. PERFORMED BY: [place] [address] PATHOLOGIST ELECTRIC PILE DRIVER OPERATOR VICKI PERRY M.D. Performed By: #### C K, PT, PTT, MG, BNP, CMP, CBC, HS TROP #### [address] Platelet mean volume Auto (B ld) [Entitic vol]Ordered By: Barrett Olivares on 04-30-2023 Platelet mean volume (Bld) [Entitic vol] 7.5 fL 6.3-10.7 [facility] Platelets Auto (Bld) [#/Vol] Ordered By: Barrett Olivares on 04-30-2023 Platelets (Bld) [#/Vol] 216 10*3/uL 150-450 [facility] Potassium [Moles/volume] in Serum or PlasmaOrdered By: Barrett Olivares on 04-30-2023 Potassium [Moles/Vol] 3.7 mmol/L 3.5-5.1 [facility] Protein Auto test strip (U) [Mass/Vol]Ordered By: PROVIDER TEMP on 04-30-2023 Protein (U) [Mass/Vol] Negative Negative [facility] Protein [Mass/volume] in Ser um or PlasmaOrdered By: Barrett Olivares on 04-30-2023 Protein [Mass/Vol] 7.3 g/dL 6.4-8.9 [facility] Prothrombin Time INRon 04-30 INR Coag (PPP) [Relative time] 1.0 {INR} Normal [facility] Comment on above: Result Comment: INR Therapeutic Range A) Pre- and Peroperative OAT started two weeks before surgery. NOT HIP SURGERY: 1.5 - 2.5 HIP SURGERY: 2 - 3 B) Primary and secondary prevention of venous THROMBOSIS: 2 - 3 C) Active venous thrombosis, pulmonary embolism and prevention of recurrent venous thrombosis: 2 - 3 D) Prevention of arterial thromboembolism including patients with mechanical heart valves: 3 - 4.5 Performed By: #### C K, PT, PTT, MG, BNP, CMP, CBC, HS TROP #### [facility] [address] PT Coag (PPP) [Time] 11.9 s Normal 9.0-12.9 [facility] Comment on above: Result Comment: A he matocrit value greater than 55% may lead to inaccurate results in coagulation testing. Patients having hematocrit values >55% require a special collection tube for coagulation studies. Please contact the laboratory at [phone] for redraw instructions. Performed By: #### C K, PT, PTT, MG, BNP, CMP, CBC, HS TROP #### [facility] [address] [place] [id number] [facility] Prothrombin time (PT)Ordered By: Barrett Olivares on 04-30-2023 PT Coag (PPP) [Time] 11.9 s 9.0-12.9 [facility] Comment on above: A hematocrit value g reater than 55% may lead to inaccurate results in coagulation testing. Patients having hematocrit values >55% require a special collection tube for coagulation studies. Please contact the laboratory at [phone] for redraw instructions. RBC Auto (Bld) [#/Vol]Ordere d By: Barrett Olivares on 04-30-2023 RBC (Bld) [#/Vol] 4.47 10*6/uL 3.60-5.00 [facility] Serum or plasma albumin/glob ulin mass ratioOrdered By: Barrett Olivares on 04-30-2023 Albumin/Globulin [Mass ratio] 1.5 {ratio} [facility] Serum or plasma anion gap de terminationOrdered By: Barrett Olivares on 04-30-2023 Anion gap [Moles/Vol] 9.7 mmol/L 6.0-15.0 [facility] Sodium [Moles/volume] in Ser um or PlasmaOrdered By: Barrett Olivares on 04-30-2023 Sodium [Moles/Vol] 137 mmol/L 136-145 [facility] Specific gravity Auto test s trip (U) [Rel density]Ordered By: RACHEL CRUZ on 04-30-2023 Specific gravity (U) [Rel density] 1.005 1.001-1.03 0 [facility] Troponin I High Sensitivityo n 04-30-2023 Troponin I High Sensitivity 5.3 pg/mL Normal 0.0-15.0 [facility] Comment on above: Result Comment: PERF ORMED BY: [place] [address] PATHOLOGIST ELECTRIC PILE [employer]IVER OPERATOR VICKI PERRY M.D. Performed By: #### C K, PT, PTT, MG, BNP, CMP, CBC, HS TROP #### [facility] [address] [place] [address] Troponin I.cardiac [Mass/vol ume] in Serum or Plasma by Detection limit <= 0.01 ng/Ordered By: Barrett Olivares on 04-30-2023 Troponin I.cardiac DL <= 0.01 ng/mL [Mass/Vol] 5.3 pg/mL 0.0-15.0 [facility] Urea nitrogen [Mass/volume] in Serum or PlasmaOrdered By: Barrett Olivares on 04-30-2023 Urea nitrogen [Mass/Vol] 14 mg/dL 7-25 [facility] Urinalysison 04-30-2023 Appearance (U) Clear Normal Clear [facility] Comment on above: Order Comment: Name Collection Type:: Clean-Voided Midstream Performed By: #### U A ####[address] [address] [place] Bilirubin,Urine Negative Normal Negative [facility] Comment on above: Order Comment: Name Collection Type:: Clean-Voided Midstream Performed By: #### U A ####[address] [address] [place] Color (U) Yellow Normal Yellow [facility] Comment on above: Order Comment: Name Collection Type:: Clean-Voided Midstream Performed By: #### U A ####[address] [address] [place] Glucose Ql (U) Normal Normal Normal [facility] Comment on above: Order Comment: Name Collection Type:: Clean-Voided Midstream Performed By: #### U A ####[address] [address] [facility] Ketones Ql (U) Negative Normal Negative [facility] Comment on above: Order Comment: Name Collection Type:: Clean-Voided Midstream Performed By: #### U A ####[address] [address] [facility] Leukocyte esterase Test strip Ql (U) Negative Normal Negative [facility] Comment on above: Order Comment: Name Collection Type:: Clean-Voided Midstream Performed By: #### U A ####[address] [address] [place] Nitrite,Urine Negative Normal Negative [facility] Comment on above: Order Comment: Name Collection Type:: Clean-Voided Midstream Performed By: #### U A ####[address] [address] [place] Occult Blood,Urine Negative Normal Negative [facility] Comment on above: Order Comment: Name Collection Type:: Clean-Voided Midstream Result Comment: PERF ORMED BY: [facility] [address] [place] [address] PATHOLOGIST ELECTRIC PILE DRIVER OPERATOR VICKI PERRY M.D. Performed By: #### U A ####[address] [place] [address] [facility] pH (U) 7.5 [pH] Normal 5.0-9.0 [facility] Comment on above: Order Comment: Name Collection Type:: Clean-Voided Midstream Performed By: #### U A ####[address] [address] [facility] Protein,Urine Negative Normal Negative [facility] Comment on above: Order Comment: Name Collection Type:: Clean-Voided Midstream Performed By: #### U A ####[address] [address] [facility] Specificy [place],Urine 1.005 Normal 1.001-1.03 0 [facility] Comment on above: Order Comment: Name Collection Type:: Clean-Voided Midstream Performed By: #### U A ####[place] [id number] [facility] Urobilinogen,Urine Normal Normal Normal [facility] Comment on above: Order Comment: Name Collection Type:: Clean-Voided Midstream Performed By: #### U A ####[address] [address] [facility] Urine clarity by refractomet ry automatedOrdered By: PROVIDER TEMP on 04-30-2023 Clarity Refractometry automated (U) Clear Clear [facility] Urine glucose measurement by automated test strip (mass/volume)Ordered By: PROVIDER TEMP on 04-30-2023 Glucose Auto test strip (U) [Mass/Vol] Normal mg/dL Normal [facility] Urine hemoglobin detection b y automated test stripOrdered By: PROVIDER TEMP on 04-30-2023 Hemoglobin Auto test strip Ql (U) Negative Negative [facility] Urine leukocyte esterase det ection by automated test stripOrdered By: PROVIDER TEMP on 04-30-2023 Leukocyte esterase Auto test strip Ql (U) Negative Negative [facility] Urobilinogen Auto test strip (U) [Mass/Vol]Ordered By: PROVIDER TEMP on 04-30-2023 Urobilinogen (U) [Mass/Vol] Normal mg/dL Normal [facility] WBC Auto (Bld) [#/Vol]Ordere d By: Barrett Olivares on 04-30-2023 WBC (Bld) [#/Vol] 6.5 10*3/uL 3.8-11.6 [facility] XR chest 2V*on 04-30-2023 XR chest 2V* [facility] [address] [place], [place] [id number] XRay Report Signed Patient: Carly Marcelino MR#: [id number] : 1940 Acct:[id number] Age/Sex: 82 / F ADM Date: 04/30/23 Loc: ER Room: Type: [facility] ER Attending Dr: Copies to: DO Valerie Salazar APRN Ordering Provider: Barrett Olivares DO Date of Service: 04/30/23 XR/XR chest 2V*: Neuro Symptoms/Deficit Plain film chest 2 view HISTORY: Bilateral lower extremity swelling. High blood pressure. COMPARISON: CT chest 08/01/2017 FINDINGS: SUPPORT DEVICES: None POSTSURGICAL CHANGES: Bilateral shoulder arthroplasties HEART: Within normal limits PULMONARY BHAVYA: Within normal limits MEDIASTINUM: 3 cm nodular soft tissue prominence in the right paratracheal region. At there is identification of a cystic lesion with CT chest 08/01/2017 consistent with benign finding. LUNGS AND PLEURA: No acute lung process, pleural effusion or pneumothorax identified. Mild right hemidiaphragm elevation. BONY STRUCTURES: Intact ADDITIONAL FINDINGS None XR/XR chest 2V* IMPRESSION: No acute cardiopulmonary disease. Similar benign-appearing nodularity right paratracheal region. Impression dictated by: Royce Jackson M.D.04/30/2023 8:12 PM Dictation Location: [place] [address] Transcribed By: [facility] 04/30/232011 Dictated By: Royce Jackson DO 04/30/232006 Signed By: 04/30/232011 Normal [facility] pH Auto test strip (U)Ordere d By: PROVIDER TEMDana on 04-30-2023 pH (U) 7.5 [pH] 5.0-9.0 [facility] BMPon 04-20-2023 Anion gap [Moles/Vol] 10 mmol/L Normal 6-16 [facility] Comment on above: Performed By: #### 1 [id number], 7862438, 63846276, 28173263, 2663556 ####[facility] [address] [place] [address] BUN/Creat Ratio 21 No Units High 10-20 [facility] Comment on above: Performed By: #### 1 7399874, 1554309, 52831089, 06166973, 9170478 ####[facility] [address] [place] [address] Calcium [Mass/Vol] 9.2 mg/dL Normal 8.9-11.1 [facility] Comment on above: Performed By: #### 1 9842518, 3661155, 88259044, 49148395, 1672556 ####[facility] [address] [place] [address] Chloride [Moles/Vol] 104 mmol/L Normal 101-111 [facility] Comment on above: Performed By: #### 1 6945622, 9627496, 15888066, 18638969, 0007298 ####[facility] [address] [place] [address] CO2 [Moles/Vol] 28 mmol/L Normal 21-31 [facility] Comment on above: Performed By: #### 1 5679077, 2406076, 73170264, 60337805, 8961273 ####[facility] [address] [address] Creatinine [Mass/Vol] 0.8 mg/dL Normal 0.5-1.3 [facility] Comment on above: Performed By: #### 1 3826591, 8966956, 79128309, 49020617, 6082227 ####[facility] [address] [place] [address] Glucose [Mass/Vol] 96 mg/dL Normal 55-199 [facility] Comment on above: Performed By: #### 1 8939769, 1786613, 80885552, 91701382, 7952237 ####[facility] [address] [place] [address] Potassium [Moles/Vol] 3.8 mmol/L Normal 3.5-5.3 [facility] Comment on above: Performed By: #### 1 0280954, 7960359, 54695789, 12816597, 7568213 ####[place] [address] [place] [address] Sodium [Moles/Vol] 138 mmol/L Normal 135-145 [facility] Comment on above: Performed By: #### 1 9628022, 3714962, 92039244, 37820141, 4066133 ####[address] [address] Urea nitrogen [Mass/Vol] 17 mg/dL Normal 5-21 [facility] Comment on above: Performed By: #### 1 4752841, 2927092, 08163848, 41082629, 6384279 ####[address] [address] CBC w/ Auto Diffon 4 Basophil Absolute 0.1 E9/L Normal 0.0-0.2 [facility] Comment on above: Performed By: #### 1 0714317, 4753766, 31991934, 42573254, 1108450 ####[address] [address] Basophils/100 WBC (Bld) 0.8 % Normal 0.0-2.0 [facility] Comment on above: Performed By: #### 1 4975826, 9910244, 45764740, 68105958, 2719035 ####[address] [address] Eos Absolute 0.2 E9/L Normal 0.0-0.5 [facility] Comment on above: Performed By: #### 1 1057455, 0343994, 97651191, 68930154, 7818903 ####[address] [place] [address] Eosinophils/100 WBC (Bld) 2.4 % Normal 0.0-8.0 [facility] Comment on above: Performed By: #### 1 0161854, 5853543, 96734096, 25112074, 7167200 ####[place] [address] [place] [address] Erythrocyte distribution width (RBC) [Ratio] 14.4 % High 10.9-14.2 [facility] Comment on above: Performed By: #### 1 6922456, 0430591, 70852072, 22709827, 8626036 ####[address] [address] Hematocrit (Bld) [Volume fraction] 38.0 % Normal 34.0-46.0 [facility] Comment on above: Performed By: #### 1 7202719, 4856847, 01173872, 80505441, 4641389 ####[address] [address] Hemoglobin (Bld) [Mass/Vol] 12.5 g/dL Normal 12.0-16.0 [facility] Comment on above: Performed By: #### 1 5809515, 4415470, 02332619, 56246279, 2319864 ####[address] [address] Lymph Absolute 1.3 E9/L Normal 1.0-4.0 [facility] Comment on above: Performed By: #### 1 0057632, 0765020, 65808249, 84808081, 5303171 ####[address] [address] Lymphocytes/100 WBC (Bld) 19.8 % Normal 14.0-50.0 [facility] Comment on above: Performed By: #### 1 1150873, 4007044, 96901891, 51454795, 6771918 ####[address] [address] MCH (RBC) [Entitic mass] 29.8 pg Normal 27.0-34.0 [facility] Comment on above: Performed By: #### 1 3284701, 1515822, 30507062, 28263974, 3230043 ####[facility] [address] [place] [address] MCHC (RBC) [Mass/Vol] 33.2 g/dL Normal 31.4-36.0 [facility] Comment on above: Performed By: #### 1 6308034, 4087849, 20919012, 31439916, 3011023 ####[place] [address] [place] [address] MCV (RBC) [Entitic vol] 89.7 fL Normal 80.0-100.0 [facility] Comment on above: Performed By: #### 1 6122292, 5333739, 80354402, 13928959, 6968292 ####[address] [address] [place] Absolute 0.7 E9/L Normal 0.2-1.0 [facility] Comment on above: Performed By: #### 1 8623096, 8746869, 76432707, 60592179, 6167513 ####[address] [address] Monocytes/100 WBC (Bld) 10.2 % Normal 4.0-14.0 [facility] Comment on above: Performed By: #### 1 0105793, 7981087, 72711053, 79130146, 7239249 ####[facility] [address] [place] [address] Neutro Absolute 4.3 E9/L Normal 2.0-7.5 [facility] Comment on above: Performed By: #### 1 3272807, 1964739, 76445647, 24380626, 5147149 ####[place] [address] [place] [address] Neutro Auto 66.8 % Normal 36.0-75.0 [facility] Comment on above: Performed By: #### 1 [id number], [id number], [id number], [id number], [id number] ####[facility] [address] [place] [address] Platelet 187.0 E9/L Normal 150.0-500. 0 [facility] Comment on above: Performed By: #### 1 [id number], 1534957, 78556387, [id number], 3674494 ####[facility] [address] [place] [address] Platelet mean volume (Bld) [Entitic vol] 7.4 fL Normal 6.4-10.8 [facility] Comment on above: Performed By: #### 1 8450182, 0239913, 96750217, 50125305, 3225636 ####[facility] [address] [place] [address] RBC 4.2 E12/L Low 4.3-5.9 [facility] Comment on above: Performed By: #### 1 [id number], 8869839, 81898650, 96575309, 4965122 ####[facility] [address] [place] [address] WBC 6.5 E9/L Normal 4.0-11.0 [facility] Comment on above: Performed By: #### 1 [id number], 0394785, 65339076, 92123485, 7644256 ####[facility] [address] [place] [address] CHEMISTRYOrdered By: SYSTEM SYSTEM on 04-20-2023 Troponin 9.90 pg/mL Low 10.10 - 27.10 pg/mL [facility] Comment on above: Interpretive Data: T he 95% CI (Confidence Interval) PPV (Positive Predictive Value) for myocardial infarction in females is 38 pg/mL, in males 51 pg/mL. The results should be used in conjunction with clinical conditions of myocardial infarction. (Access High Sensitivity Troponin I Instructions For Use, Raegan Gregory, October 2017) CHEMISTRYOrdered By: Jennifer brennan on 04-20-2023 Anion gap [Moles/Vol] 10 mmol/L Normal 6 - 16 mEq/L [facility] Calcium [Mass/Vol] 9.2 mg/dL Normal 8.9 - 11. 1 mg/dL [facility] Chloride [Moles/Vol] 104 mmol/L Normal 101 - 1 11 mmol/L [facility] CO2 [Moles/Vol] 28 mmol/L Normal 21 - 31 mmol/L [facility] Creatinine [Mass/Vol] 0.8 mg/dL Normal 0.5 - 1.3 mg/dL [facility] eGFR 73 mL/min/1.73 m2 Normal >=59mL/min /1.73 m2 [facility] Glucose [Mass/Vol] 96 mg/dL Normal 55 - 199 mg/dL [facility] Potassium [Moles/Vol] 3.8 mmol/L Normal 3.5 - 5.3 mmol/L [facility] Sodium [Moles/Vol] 138 mmol/L Normal 135 - 145 mmol/L [facility] Troponin 7.00 pg/mL Low 10.10 - 27.10 pg/mL [facility] Comment on above: Interpretive Data: T he 95% CI (Confidence Interval) PPV (Positive Predictive Value) for myocardial infarction in females is 38 pg/mL, in males 51 pg/mL. The results should be used in conjunction with clinical conditions of myocardial infarction. (Access High Sensitivity Troponin I Instructions For Use, Raegan Gregory, October 2017) Urea nitrogen [Mass/Vol] 17 mg/dL Normal 5 - 21 mg/dL [facility] Urea nitrogen/Creatinine [Mass ratio] 21 mg/mg High 10 - 20 [facility] COAGULATIONOrdered By: Miranda Mejias on 04-20-2023 aPTT Coag (PPP) [Time] 38.3 s High 25.1 - 36.5 second(s) [facility] Comment on above: Interpretive Data: Dana sharif 15 days - 4 weeks 1 - 5 months 6 - 11 months 1 - 5 years 6 - 10 years 11 - 17 years PTT Mean: 35.4 (27.6-45.6) Mean: 33.5 (24.8-40.7) Mean: 32.4 (25.1-40.7) Mean: 31.6 (24.0-39.2) Mean: 31.6 (26.9-38.7) Mean: 31.0 (24.6-38.4) Pediatric Reference ranges were obtained from a study by dominik Haas alChinmay prepared from 1437 samples obtained at 7 different centers using the same coagulation reagent and instrumentation as [facility]. Currently there are no coagulation studies available worldwide for children to 14 days, and no normal ranges. Heparin therapeutic range (represented by Anti-Factor Xa activity of 0.2 - 0.4 U/mL) corresponds to PTT of 56.6 - 109.0 sec. INR Coag (PPP) [Relative time] 1.1 {INR} Invalid Interpretation Code [facility] Comment on above: Interpretive Data: I NR results are specifically intended to assess patients stabilized on long-term Anticoagulation therapy suggested INR s Less Intensive Anticoagulation 2.0 3.0 Conventional Range 3.0 4.5 PT Coag (PPP) [Time] 12.2 s Normal 9.4 - 1 2.5 second(s) [facility] Comment on above: Interpretive Data: 1 5 days - 4 weeks 1 - 5 months 6 -11 months 1 5 years 6 10 years 11 -17 years Mean: 11.2 (9.5 12.6) Mean: 11.0 (9.7 12.8) Mean: 11.0 (9.8 13.0) Mean: 11.3 (9.9 13.4) Mean: 11.7 (10.0 14.6) Mean: 11.8 (10.0 - 14.1) Pediatric Reference ranges were obtained from a study by dominik Haas al. prepared from 1437 samples obtained at 7 different centers using the same coagulation reagent and instrumentation as [facility]. Currently there are no coagulation studies available worldwide for children to 14 days, and no normal ranges. CT Head or Brain w/o Contras ton 04-20-2023 CT Head or Brain w/o Contrast Normal [facility] CTA Headon 04-20-2023 CTA Head Normal [facility] CTA Neckon 04-20-2023 CTA Neck Normal [facility] Consent for Treatmenton Consent for Treatment [id number]#[id number] Normal [facility] Discharge Instructionson Discharge Instructions [id number]#[id number] Normal [facility] ED Clinical Summaryon 2023 ED Clinical Summary Normal Tien murphy [facility] ED Note-Physicianon 04-20-19 ED Note-Physician Normal [facility] Comment on above: Result Comment: Elec tronically Signed By: Hank Beard DO\.br\Date and Time Signed: 04/20/23 11:11 EST ED Patient Education Noteon 04-20-2023 ED Patient Education Note Normal [facility] ED Patient Summaryon 024 ED Patient Summary Normal [facility] HEMATOLOGYOrdered By: SYSTEM SYSTEM on 04-20-2023 Basophil Absolute 0.1 E9/L Normal 0.0 - 0.2 E9/L [facility] Basophils/100 WBC (Bld) 0.8 % Normal 0.0 - 2.0 % [facility] Eos Absolute 0.2 E9/L Normal 0.0 - 0.5 E9/L [facility] Eosinophils/100 WBC (Bld) 2.4 % Normal 0.0 - 8.0 % [facility] Erythrocyte distribution width (RBC) [Ratio] 14.4 % High 10.9 - 14.2 % [facility] Hematocrit (Bld) [Volume fraction] 38.0 % Normal 34.0 - 46.0 % [facility] Hemoglobin (Bld) [Mass/Vol] 12.5 g/dL Normal 12.0 - 16.0 gm/dL [facility] Lymph Absolute 1.3 E9/L Normal 1.0 - 4.0 E9/L [facility] Lymphocytes/100 WBC (Bld) 19.8 % Normal 14.0 - 50.0 % [facility] MCH (RBC) [Entitic mass] 29.8 pg Normal 27.0 - 34.0 pg [facility] MCHC (RBC) [Mass/Vol] 33.2 g/dL Normal 31.4 - 36.0 gm/dL [facility] MCV (RBC) [Entitic vol] 89.7 fL Normal 80.0 - 100.0 fL [facility] Mcculloch Absolute 0.7 E9/L Normal 0.2 - 1.0 E9/L [facility] Monocytes/100 WBC (Bld) 10.2 % Normal 4.0 - 14.0 % [facility] Neutro Absolute 4.3 E9/L Normal 2.0 - 7.5 E9/L [facility] Neutro Auto 66.8 % Normal 36.0 - 75.0 % [facility] Platelet 187.0 E9/L Normal 150.0 - 500.0 E9/L [facility] Platelet mean volume (Bld) [Entitic vol] 7.4 fL Normal 6.4 - 10.8 fL [facility] RBC 4.2 E12/L Low 4.3 - 5.9 E12/L [facility] WBC 6.5 E9/L Normal 4.0 - 11.0 E9/L [facility] Monitor Recordon 04-20-2023 Monitor Record [id number]#[id number] Normal [facility] Monitor Record [id number]#[id number] Normal [facility] PT & PTTon 04-20-2023 aPTT Coag (PPP) [Time] 38.3 second(s) High 25.1-36.5 [facility] Comment on above: Result Comment: Para meter 15 days - 4 weeks 1 - 5 months 6 - 11 months 1 - 5 years 6 - 10 years 11 - 17 years PTT Mean: 35.4 (27.6-45.6) Mean: 33.5 (24.8-40.7) Mean: 32.4 (25.1-40.7) Mean: 31.6 (24.0-39.2) Mean: 31.6 (26.9-38.7) Mean: 31.0 (24.6-38.4) Pediatric Reference ranges were obtained from a study by Dharmesh Marin et al. prepared from 1437 samples obtained at 7 different centers using the same coagulation reagent and instrumentation as [facility]. Currently there are no coagulation studies available worldwide for children to 14 days, and no normal ranges. Heparin therapeutic range (represented by Anti-Factor Xa activity of 0.2 - 0.4 U/mL) corresponds to PTT of 56.6 - 109.0 sec. Performed By: #### 1 [id number], 1108404, 42084062, 41065474, 3254522 ####[facility] [address] [place] [address] INR Coag (PPP) [Relative time] 1.1 {INR} Invalid Interpretation Code [facility] Comment on above: Result Comment: INR results are specifically intended to assess patients stabilized on long-term Anticoagulation therapy suggested INR?s ?Less Intensive Anticoagulation? 2.0 ? 3.0Conventional Range 3.0 ? 4.5 Performed By: #### 1 [id number], 2017353, 18214716, 50556577, 9147577 ####[facility] [address] [place] [address] PT Coag (PPP) [Time] 12.2 second(s) Normal 9.4-12.5 [facility] Comment on above: Result Comment: 15 d ays - 4 weeks 1 - 5 months 6 -11 months 1 ? 5 years 6 ? 10 years 11 -17 years Mean: 11.2 (9.5 ? 12.6) Mean: 11.0 (9.7 ? 12.8) Mean: 11.0 (9.8 ? 13.0) Mean: 11.3 (9.9 ? 13.4) Mean: 11.7 (10.0 ? 14.6) Mean: 11.8 (10.0 - 14.1) Pediatric Reference ranges were obtained from a study by Dharmesh Marin et al. prepared from 1437 samples obtained at 7 different centers using the same coagulation reagent and instrumentation as [facility]. Currently there are no coagulation studies available worldwide for children to 14 days, and no normal ranges. Performed By: #### 1 0224602, 7970831, 29122424, 71087695, 8586524 ####[facility] [address] [place] [address] Troponin 0 Hr.on 04-20-2023 Troponin 7.00 pg/mL Low 10.10-27.1 0 [facility] Comment on above: Result Comment: The 95% CI (Confidence Interval) PPV (Positive Predictive Value) for myocardial infarction in females is 38 pg/mL, in males 51 pg/mL. The results should be used in conjunction with clinical conditions of myocardial infarction.(Access High Sensitivity Troponin I Instructions For Use, [employer] It, October 2017) Performed By: #### 1 [id number], 0877543, 90139320, 58559968, 4639004 ####[facility] [address] [place] [address] Troponin 3 Hr.on 04-20-2023 Troponin 9.90 pg/mL Low 10.10-27.1 0 [facility] Comment on above: Result Comment: The 95% CI (Confidence Interval) PPV (Positive Predictive Value) for myocardial infarction in females is 38 pg/mL, in males 51 pg/mL. The results should be used in conjunction with clinical conditions of myocardial infarction.(Findline High Sensitivity Troponin I Instructions For Use, [employer], October 2017) Performed By: #### 1 [id number] ####[address] [address] UA With Cult Reflexon 2023 Bilirubin Ql (U) Negative Normal Negative [facility] Comment on above: Performed By: #### 1 [id number] ####[address] [address] Clarity (U) CLEAR Normal Clear [facility] Comment on above: Performed By: #### 1 0328092 ####[address] [address] Color (U) YELLOW Normal Yellow [facility] Comment on above: Performed By: #### 1 [id number] ####[address] [address] Epithelial cells.squamous LM.HPF (Urine sed) [#/Area] 0-2 Normal 0-2 [facility] Comment on above: Performed By: #### 1 9502508 ####[facility] [address] [place] [address] Glucose Test strip (U) [Mass/Vol] Negative Normal Negative [facility] Comment on above: Performed By: #### 1 2948428 ####[address] [place] [address] Hemoglobin Ql (U) Negative Normal Negative [facility] Comment on above: Performed By: #### 1 [id number] ####[address] [address] Ketones (U) [Mass/Vol] Negative Normal Negative [facility] Comment on above: Performed By: #### 1 0613361 ####[address] [address] Amistad.plasma/Amistad .RBC (Bld) [Mass ratio] 0-3 Normal 0-3 [facility] Comment on above: Performed By: #### 1 4483890 ####[address] [address] Nitrite Ql (U) Negative Normal Negative [facility] Comment on above: Performed By: #### 1 5264980 ####[address] [address] pH (U) 7.5 [pH] Invalid Interpretation Code 5.0-9.0 [facility] Comment on above: Performed By: #### 1 1384167 ####[address] [address] Protein (U) [Mass/Vol] Negative Normal Negative [facility] Comment on above: Performed By: #### 1 9702986 ####[address] [address] Specific gravity (U) [Rel density] 1.010 Invalid Interpretation Code 1.005-1.03 0 [facility] Comment on above: Performed By: #### 1 [id number] ####[address] [address] Type of Urine collection method Clean Catch Normal [facility] Comment on above: Performed By: #### 1 [id number] ####[address] [address] Urobilinogen Qn (U) 0.2 {Lexie'U}/dL Normal 0.0-1.0 [facility] Comment on above: Performed By: #### 1 2043457 ####[facility] [address] [place] [address] WBC Auto Ql (U) Negative Normal Negative [facility] Comment on above: Performed By: #### 1 9228958 ####[facility] [address] [place] [address] WBC LM.HPF (Urine sed) [#/Area] 0-5 Normal 0-5 [facility] Comment on above: Performed By: #### 1 8888204 ####[facility] [address] [place] [address] URINALYSISOrdered By: Tameka Mejias on 04-20-2023 Bilirubin Ql (U) Negative (04/20/23 7:57 AM) Normal Negative [facility] UA Auto SS Clarity (U) Clear (04/20/23 7:57 AM) Normal Clear [facility] UA Auto SS Color (U) Yellow (04/20/23 7:57 AM) Normal Yellow [facility] UA Auto SS Epithelial cells.squamous LM.HPF (Urine sed) [#/Area] 0-2 /HPF Normal 0-2/HPF [facility] UA Aut o SS Glucose Test strip (U) [Mass/Vol] Negative (04/20/23 7:57 AM) Normal Negative [facility] UA Auto SS Hemoglobin Ql (U) Negative (04/20/23 7:57 AM) Normal Negative [facility] UA Auto SS Ketones (U) [Mass/Vol] Negative (04/20/23 7:57 AM) Normal Negative [facility] UA Auto SS Amistad.plasma/Amistad .RBC (Bld) [Mass ratio] 0-3 /HPF Normal 0-3/HPF [facility] UA Auto SS Nitrite Ql (U) Negative (04/20/23 7:57 AM) Normal Negative [facility] UA Auto SS pH (U) 7.5 *NA* (04/20/23 7:57 AM) Invalid Interpretation Code 5.0 - 9.0 [facility] UA Auto SS Protein (U) [Mass/Vol] Negative (04/20/23 7:57 AM) Normal Negative [facility] UA Auto SS Specific gravity (U) [Rel density] 1.010 *NA* (04/20/23 7:57 AM) Invalid Interpretation Code 1.005 - 1.030 [facility] UA Auto SS UA Spec Desc Clean Catch (04/20/23 7:57 AM) Normal [facility] UA Auto SS Urobilinogen Qn (U) 0.8304187 {Lexie'U}/dL Normal 0.0 - 1.0 EU/dL [facility] UA Auto SS WBC Auto Ql (U) Negative (04/20/23 7:57 AM) Normal Negative [facility] UA Auto SS WBC LM.HPF (Urine sed) [#/Area] 0-5 /HPF Normal 0-5/HPF [facility] UA Auto SS XR Chest Single Viewon 04-20 XR Chest Single View Normal [facility] eGFRon 04-20-2023 eGFR 73 mL/min/1.73 m2 Normal >=59 [facility] Comment on above: Order Comment: Order added by Discern Expert. Performed By: #### 1 [id number], 5418076, 74072540, 60524014, 7238762 ####[facility] [address] [place] [address] MM screening mammo BI w/CADo n 02-07-2023 MM screening mammo BI w/CAD [facility] [place] [address] Mammography Report Signed Patient: Carly Marcelino MR#: [id number] : 1940 Acct:[id number] Age/Sex: 82 / F ADM Date: 02/07/23 Loc: MD Room: Type: [facility] Attending Dr: Hardeep Mckenzie DO Copies to: Hardeep Mckenzie DO Ordering Provider: Hardeep Mckenzie DO Date of Service: 02/07/23 MM/MM screening mammo BI w/CAD: Encounter for screening mammogram for breast cancer CLINICAL DATA: Screening for malignancy. SCREENING MAMMOGRAM - FULL FIELD DIGITAL WITH TOMOSYNTHESIS AND CAD COMPARISON:Mammograms dating back to 2019 Tomosynthesis craniocaudal and mediolateral oblique views of both breasts were obtained using low- dose digital technique. This examination was reviewed with the aid of CAD. The breast tissue is composed of scattered fibroglandular densities. There are no dominant masses, typically malignant calcifications or architectural distortion. Grossly stable postsurgical changes right breast. There has been no significant interval change. MM/MM screening mammo BI w/CAD IMPRESSION: NO MAMMOGRAPHIC EVIDENCE OF MALIGNANCY. ROUTINE FOLLOW-UP IS RECOMMENDED IN ONE YEAR. RESULT CODE: 1 Negative DENSITY CODE: 2 (approximately 25-50% glandular) FOLLOW UP: 1YR The false-negative rate of mammography is approximately 10-percent. Management of a palpable abnormality must be based on clinical grounds. Patient was entered into a reminder system with a target due date for the next mammogram. Impression dictated by: Mike Mason Jr., D.O.02/07/2023 3:33 PM Dictation Location: [facility] Transcribed By: [facility] 02/07/231532 Dictated By: Mike Mason Jr, DO 02/07/231531 Signed By: 02/07/231532 [facility] Cristin 11-16-2022 ALT No additional P-5'-P [Catalytic activity/Vol] 16 Int._Unit/L Normal 6-46 [facility] Comment on above: Performed By: #### 2 828357, 5034685, 9202363 ####[facility] [address] [place] [address] Maribell 11-16-2022 AST [Catalytic activity/Vol] 27 Int._Unit/L Normal 5-43 [facility] Comment on above: Performed By: #### 2 416437, 1958981, 3547664 ####[facility] [address] [place] [address] CHEMISTRYOrdered By: SYSTEM SYSTEM on 11-16-2022 ALT No additional P-5'-P [Catalytic activity/Vol] 16 [iU]/d Normal 6 - 46 Int._Unit/ L [facility] Remisol AST [Catalytic activity/Vol] 27 [iU]/d Normal 5 - 43 Int._Unit/ L [facility] Remisol Cholesterol [Mass/Vol] 149 mg/dL Normal 120 - 200 mg/dL [facility] Remisol Cholesterol in HDL [Mass/Vol] 43 mg/dL Invalid Interpretation Code [facility] Remisol Cholesterol in LDL [Mass/Vol] 81 mg/dL Normal <=129mg/dL [facility] Remisol Cholesterol in VLDL [Mass/Vol] 19 mg/dL Normal 7 - 40 mg/dL [facility] Remisol Triglyceride [Mass/Vol] 93 mg/dL Normal <=149mg/dL [facility] Remisol Consent for Treatmenton Consent for Treatment [id number]#[id number]:127 Normal [facility] Laboratory - Chemistry and C hemistry - challengeon 11-16-2022 Cholesterol [Mass/Vol] 81 mg/dL Normal <=129 [facility] [address] DO Work Phone: Cholesterol in LDL [Mass/Vol] 19 mg/dL Normal 7-40 [facility] [address] DO Work Phone: Lipid Panelon 11-16-2022 Cholesterol [Mass/Vol] 149 mg/dL Normal 120-200 [facility] Comment on above: Performed By: #### 2 331803, 3570245, 0428380 ####[facility] [address] [place] [address] Cholesterol in HDL [Mass/Vol] 43 mg/dL Invalid Interpretation Code [facility] Comment on above: Result Comment: HDL > or equal to 60 mg/dL: Low cardiovascular riskHDL < 40 mg/dL : High cardiovascular risk Performed By: #### 2 133400, 9460496, 4144450 ####[facility] [address] [place] [address] Cholesterol in LDL [Mass/Vol] 81 mg/dL Normal <=129 [facility] Comment on above: Performed By: #### 2 862207, 0171378, 4050721 ####[facility] [address] [place] [address] Cholesterol in VLDL [Mass/Vol] 19 mg/dL Normal 7-40 [facility] Comment on above: Performed By: #### 2 866811, 9942306, 7390980 ####[facility] [address] [place] [address] Triglyceride [Mass/Vol] 93 mg/dL Normal <=149 [facility] Comment on above: Performed By: #### 2 853761, 6516333, 8049453 ####[facility] [address] [place] [address] No Panel Informationon 11-16 16 {Int._Unit/L} Normal 6-46 [facility] [address] DO Work Phone: 27 {Int._Unit/L} Normal 5-43 [facility] [address] DO Work Phone: 93 mg/dL Normal <=149 [facility] [address] DO Work Phone: 149 mg/dL Normal 120-200 [facility] [address] DO Work Phone: 43 mg/dL [facility] [address] DO Work Phone: Comment on above: HDL > or equal to 60 mg/dL: Low cardiovascular riskHDL < 40 mg/dL : High cardiovascular risk Physician Orderon 11-16-2022 Physician Order [id number]:127 Normal [facility] US carotid doppler BIon 08-3 US carotid doppler BI [facility] [address] [address] Ultrasound Report Signed Patient: Carly Marcelino MR#: [id number] : 1940 Acct:[id number] Age/Sex: 82 / F ADM Date: 11/07/22 Loc: [facility] Room: Type: [facility] Attending Dr: Royce Douglas MD Ordering Provider: Royce Douglas MD Date of Service: 11/07/22 US/US carotid doppler BI: I65.23 Copies to: Royce Douglas MD CAROTID DUPLEX INDICATION: Surveillance study for carotid stenoses PROCEDURE: Color-flow duplex scanning is used to interrogate the extracranial carotid arterial system, as well as both vertebral arteries. Both carotid bifurcations show mild to moderate heterogeneous plaque formation. The proximal right internal carotid artery shows a highest peak systolic velocity of 62.4 cm/s with an end-diastolic velocity of 13.8 cm/s . The mid internal carotid artery measures 116 cm/s peak systolic and 27.4 cm/s end diastolic. The distal segment measures 54.9 cm/s peak systolic with an end diastolic velocity of 11.8 cm/s . The velocities of the right common carotid artery are 87 cm/s peak systolic and 16.8 cm/s end-diastolic proximally and 82 cm/s peak systolic and 19.3 cm/s end diastolic distally. The peak systolic velocity ratio of the internal to the common carotid artery is 1.41. The right external carotid artery measures 67.3 cm/s peak systolic. The right vertebral artery is patent at 73.9 cm/s with antegrade flow. The proximal left internal carotid artery shows a highest peak systolic velocity of 146 cm/s with an end-diastolic velocity of 34.9 cm/s . The mid internal carotid artery measures 192 cm/s peak systolic and 40.7 cm/s end diastolic. The distal segment measures 98.8 cm/s peak systolic with an end diastolic velocity of 23.8 cm/s . The velocities of the left common carotid artery are 103 cm/s peak systolic and 19.6 cm/s end-diastolic proximally and 83.1 cm/s peak systolic and 20.6 cm/s end diastolic distally. The peak systolic velocity ratio of the internal to the common carotid artery is 2.31 . The left external carotid artery measures 86.2 cm/s peak systolic. The left vertebral artery is patent at 58.8 cm/s with antegrade flow. US/US carotid doppler BI IMPRESSION: MILD TO MODERATE PLAQUE FORMATION IS NOTED BILATERAL EXTRACRANIAL CAROTID ARTERIES. 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 Impression dictated by: Ross Sandy MD11/08/2022 2:16 PM Dictation Location: [facility]-04 Tech: Benita Slade Transcribed By: MICHELINE 11/08/22 141 Dictated By: Ross Sandy MD 11/08/22 1415 Signed By: 11/08/22 141 [facility] XR humerus LT*on 11-02-2022 XR humerus LT* [facility] [place] [address] XRay Report Signed Patient: Carly Marcelino MR#: [id number] : 1940 Acct:[id number] Age/Sex: 82 / F ADM Date: 11/02/22 Loc: [facility] Room: Type: [facility] Attending Dr: Patrick Howe MD Copies to: Patrick Howe MD Ordering Provider: Patrick Howe MD Date of Service: 11/02/22 XR/XR shoulder LT min 2V*: Acute pain of left shoulder ([id number]) XR/XR humerus LT*: Acute pain of left shoulder LEFT SHOULDER - - 3 views, left humerus 2 views CLINICAL HISTORY: Left shoulder pain for months with limited range of motion. 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 Presumed posttraumatic deformity is seen involving the acromion. No acute fracture is seen involving the left shoulder or humerus. Residual deformity is seen involving the distal humerus suggestive of prior injury as seen on the 2018 study. XR/XR shoulder LT min 2V* IMPRESSION: NO EVIDENCE OF HARDWARE COMPLICATION OR ACUTE BONY PROCESS. Impression dictated by: Mike Mason Jr., D.OChinmay11/02/2022 1:46 PM Dictation Location: [place] [address] Transcribed By: [facility] 11/02/22 1346 Dictated By: Mike Mason Jr, DO 11/02/22 1345 Signed By: 11/02/22 1346 Normal [facility] Coding Queryon 08-15-2022 Coding Query Normal [facility] Coding Queryon 08-14-2022 Coding Query Normal [facility] Auto Diffon 08-04-2022 Basophils/100 WBC (Bld) 1.0 % Normal 0.0-2.0 [facility] Comment on above: Order Comment: Order Added by Discern Expert. Performed By: #### 2 [id number], [id number], 4919229, 7054707 ####[place] [address] [place], [place] [address] Basophils/Leukocytes Auto (Bld) [Pure # fraction] 0.0 E9/L Normal 0.0-0.2 [facility] Comment on above: Order Comment: Order Added by Discern Expert. Performed By: #### 2 270880, 85188338, 1970030, 8895951 ####[facility] [address] [place] [address] Eosinophils/100 WBC (Bld) 3.7 % Normal 0.0-8.0 [facility] Comment on above: Order Comment: Order Added by Discern Expert. Performed By: #### 2 410136, 41325216, 3038971, 5071671 ####[address] [address] Eosinophils/Leukocytes Auto (Bld) [Pure # fraction] 0.2 E9/L Normal 0.0-0.5 [facility] Comment on above: Order Comment: Order Added by Discern Expert. Performed By: #### 2 385410, 14485690, 4168123, 9530963 ####[address] [address] Lymphocytes/100 WBC (Bld) 24.4 % Normal 14.0-50.0 [facility] Comment on above: Order Comment: Order Added by Discern Expert. Performed By: #### 2 704885, 07454532, 0239392, 2698136 ####[address] [address] Lymphocytes/Leukocytes Auto (Bld) [Pure # fraction] 1.2 E9/L Normal 1.0-4.0 [facility] Comment on above: Order Comment: Order Added by Discern Expert. Performed By: #### 2 048662, 55730649, 2153798, 6483029 ####[address] [address] Monocytes/100 WBC (Bld) 11.9 % Normal 4.0-14.0 [facility] Comment on above: Order Comment: Order Added by Discern Expert. Performed By: #### 2 736744, 34742243, 7937588, 7032975 ####[facility] [address] [place] [address] Monocytes/Leukocytes Auto (Bld) [Pure # fraction] 0.6 E9/L Normal 0.2-1.0 [facility] Comment on above: Order Comment: Order Added by Discern Expert. Performed By: #### 2 661466, 87570961, 1074078, 4860662 ####[address] [address] Neutrophils/100 WBC (Bld) 59.0 % Normal 36.0-75.0 [facility] Comment on above: Order Comment: Order Added by Discern Expert. Performed By: #### 2 615296, 34019351, 8988471, 2952980 ####[address] [place] [address] Neutrophils/Leukocytes Auto (Bld) [Pure # fraction] 2.8 E9/L Normal 2.0-7.5 [facility] Comment on above: Order Comment: Order Added by Discern Expert. Performed By: #### 2 417138, 47999399, 4892756, 4505330 ####[address] [address] BMPon 08-04-2022 Potassium [Moles/Vol] 3.0 mmol/L Low 3.5-5.3 [facility] Comment on above: Performed By: #### 2 988141, 95766089, 3926492, 2614596 ####[address] [place] [address] Anion gap [Moles/Vol] 11 mmol/L Normal 6-16 [facility] Comment on above: Performed By: #### 2 585958, 25650790, 9505689, 3704880 ####[address] [place] [address] Calcium [Mass/Vol] 8.9 mg/dL Normal 8.9-11.1 [facility] Comment on above: Performed By: #### 2 410647, 97436067, 3267221, 2901844 ####[facility] [address] [place] [place] [address] Chloride [Moles/Vol] 91 mmol/L Low 101-111 [facility] Comment on above: Performed By: #### 2 062022, 91427876, 0465621, 8951471 ####[facility] [address] [place] [address] CO2 [Moles/Vol] 31 mmol/L Normal 21-31 [facility] Comment on above: Performed By: #### 2 348893, 67913502, 4115026, 5486167 ####[facility] [address] [place] [address] Creatinine [Mass/Vol] 0.8 mg/dL Normal 0.5-1.3 [facility] Comment on above: Performed By: #### 2 240611, 27523013, 5340952, 9420155 ####[facility] [address] [address] Glucose [Mass/Vol] 91 mg/dL Normal 55-199 [facility] Comment on above: Result Comment: If t his glucose result represents a fasting glucose, interpretation should refer to the following reference range: 55-99 mg/dL Performed By: #### 2 613193, 57557041, 5744135, 3570327 ####[facility] [address] [facility] [place] [address] Sodium [Moles/Vol] 130 mmol/L Low 135-145 [facility] Comment on above: Performed By: #### 2 430584, 18053665, 9714247, 6563055 ####[facility] [address] [address] Urea nitrogen [Mass/Vol] 15 mg/dL Normal 5-21 [facility] Comment on above: Performed By: #### 2 368166, 51864204, 3650078, 9773943 ####[facility] [address] [place] [address] Urea nitrogen/Creatinine [Mass ratio] 19 No Units Normal 10-20 [facility] Comment on above: Performed By: #### 2 706065, 61731300, 5712814, 6349091 ####[facility] [address] [place] [address] CBC w/ Auto Diffon 3 Erythrocyte distribution width (RBC) [Ratio] 13.9 % Normal 10.9-14.2 [facility] Comment on above: Performed By: #### 2 834649, 52663147, 3595638, 1077137 ####[facility] [address] [place] [address] Hematocrit (Bld) [Volume fraction] 34.1 % Normal 34.0-46.0 [facility] Comment on above: Performed By: #### 2 599705, 86698692, 4605911, 3335089 ####[address] [address] Hemoglobin (Bld) [Mass/Vol] 11.6 g/dL Low 12.0-16.0 [facility] Comment on above: Performed By: #### 2 507466, 24079224, 1515066, 9562339 ####[address] [address] MCH (RBC) [Entitic mass] 29.2 pg Normal 27.0-34.0 [facility] Comment on above: Performed By: #### 2 931724, 96888649, 8267741, 3640761 ####[address] [address] MCHC (RBC) [Mass/Vol] 34.1 g/dL Normal 31.4-36.0 [facility] Comment on above: Performed By: #### 2 262870, 46929292, 2357216, 9745677 ####[address] [place] [address] MCV (RBC) [Entitic vol] 85.7 fL Normal 80.0-100.0 [facility] Comment on above: Performed By: #### 2 475217, 62164662, 0442006, 6337177 ####[facility] [address] [place] [address] Platelet mean volume (Bld) [Entitic vol] 7.0 fL Normal 6.4-10.8 [facility] Comment on above: Performed By: #### 2 735368, 70274198, 9870881, 8067709 ####[address] [place] [address] Platelets (Bld) [#/Vol] 196.0 E9/L Normal 150.0-500. 0 [facility] Comment on above: Performed By: #### 2 571433, 88533459, 4775542, 3841423 ####[address] [address] RBC (Bld) [#/Vol] 4.0 E12/L Low 4.3-5.9 [facility] Comment on above: Performed By: #### 2 215927, 11215775, 0426294, 8654654 ####[facility] [address] [place] [address] WBC corrected for nucl RBC Auto (Bld) [#/Vol] 4.8 E9/L Normal 4.0-11.0 [facility] Comment on above: Performed By: #### 2 111038, 10068980, 3691124, 7459980 ####[facility] [address] [place] [address] CHEMISTRYOrdered By: SYSTEM SYSTEM on 08-04-2022 Anion gap [Moles/Vol] 11 mmol/L Normal 6 - 16 mEq/L [facility] Remisol Calcium [Mass/Vol] 8.9 mg/dL Normal 8.9 - 11. 1 mg/dL [facility] Chloride [Moles/Vol] 91 mmol/L Low 101 - 1 11 mmol/L [facility] CO2 [Moles/Vol] 31 mmol/L Normal 21 - 31 mmol/L [facility] Creatinine [Mass/Vol] 0.8 mg/dL Normal 0.5 - 1.3 mg/dL [facility] GFR/1.73 sq M.predicted among non-blacks MDRD (S/P/Bld) [Vol rate/Area] 73 mL/min/1.73 m2 Normal >=59mL/min /1.73 m2 [facility] Chem S Glucose [Mass/Vol] 91 mg/dL Normal 55 - 199 mg/dL [facility] Sodium [Moles/Vol] 130 mmol/L Low 135 - 145 mmol/L [facility] Urea nitrogen [Mass/Vol] 15 mg/dL Normal 5 - 21 mg/dL [facility] Remisol Urea nitrogen/Creatinine [Mass ratio] 19 mg/mg Normal 10 - 20 [facility] Remisol CHEMISTRYOrdered By: Kyrie Begum on 08-04-2022 Potassium [Moles/Vol] 3.0 mmol/L Low 3.5 - 5.3 mmol/L [facility] Remisol Discharge Instructionson Discharge Instructions [id number]#[id number]:127 Normal [facility] HEMATOLOGYOrdered By: SYSTEM SYSTEM on 08-04-2022 Basophils/100 WBC (Bld) 1.0 % Normal 0.0 - 2.0 % [facility] HemeAutoSS Basophils/Leukocytes Auto (Bld) [Pure # fraction] 0.0 E9/L Normal 0.0 - 0.2 E9/L [facility] HemeAutoSS Eosinophils/100 WBC (Bld) 3.7 % Normal 0.0 - 8.0 % [facility] HemeAutoSS Eosinophils/Leukocytes Auto (Bld) [Pure # fraction] 0.2 E9/L Normal 0.0 - 0.5 E9/L [facility] HemeAutoSS Lymphocytes/100 WBC (Bld) 24.4 % Normal 14.0 - 50.0 % [facility] HemeAutoSS Lymphocytes/Leukocytes Auto (Bld) [Pure # fraction] 1.2 E9/L Normal 1.0 - 4.0 E9/L [facility] HemeAutoSS Monocytes/100 WBC (Bld) 11.9 % Normal 4.0 - 14.0 % [facility] HemeAutoSS Monocytes/Leukocytes Auto (Bld) [Pure # fraction] 0.6 E9/L Normal 0.2 - 1.0 E9/L [facility] HemeAutoSS Neutrophils/100 WBC (Bld) 59.0 % Normal 36.0 - 75.0 % [facility] HemeAutoSS Neutrophils/Leukocytes Auto (Bld) [Pure # fraction] 2.8 E9/L Normal 2.0 - 7.5 E9/L [facility] HemeAutoSS HEMATOLOGYOrdered By: Aubree Pruitt on 08-04-2022 Erythrocyte distribution width (RBC) [Ratio] 13.9 % Normal 10.9 - 14.2 % [facility] HemeAutoSS Hematocrit (Bld) [Volume fraction] 34.1 % Normal 34.0 - 46.0 % [facility] HemeAutoSS Hemoglobin (Bld) [Mass/Vol] 11.6 g/dL Low 12.0 - 16.0 gm/dL [facility] HemeAutoSS MCH (RBC) [Entitic mass] 29.2 pg Normal 27.0 - 34.0 pg [facility] HemeAutoSS MCHC (RBC) [Mass/Vol] 34.1 g/dL Normal 31.4 - 36.0 gm/dL [facility] HemeAutoSS MCV (RBC) [Entitic vol] 85.7 fL Normal 80.0 - 100.0 fL [facility] HemeAutoSS Platelet mean volume (Bld) [Entitic vol] 7.0 fL Normal 6.4 - 10.8 fL [facility] HemeAutoSS Platelets (Bld) [#/Vol] 196.0 E9/L Normal 150.0 - 500.0 E9/L [facility] HemeAutoSS RBC (Bld) [#/Vol] 4.0 E12/L Low 4.3 - 5.9 E12/L [facility] HemeAutoSS WBC corrected for nucl RBC Auto (Bld) [#/Vol] 4.8 E9/L Normal 4.0 - 11.0 E9/L [facility] HemeAutoSS Inpatient Clinical Summaryon 08-04-2022 Inpatient Clinical Summary Normal [facility] Inpatient Patient Summaryon 08-04-2022 Inpatient Patient Summary Normal [facility] Inpatient Patient Summary Normal [facility] Interdisciplinary Note - Janette e Manageron 08-04-2022 Interdisciplinary Note - Circus Rider Normal [facility] Comment on above: Result Comment: Elec tronically Signed By: Jg GONZALEZ, Stacey\.br\Date and Time Signed: 08/04/22 12:35 EDT Interdisciplinary Note - PTo n 08-04-2022 Interdisciplinary Note - PT PT Re-Screened pt this date per physician's request. Pt was able to perform functional tasks at Mod I and would be functionally safe to return home using FWW as prior. Ni further PT services needed Normal [facility] Monitor Recordon 08-04-2022 Monitor Record [id number]#1.00CD:127 Normal [facility] Monitor Record [id number]#1.00CD:127 Normal [facility] Monitor Record [id number]#1.00CD:127 Normal [facility] Progress Note-Nurseon 2022 Progress Note-Nurse Normal [facility] Progress Note-Physicianon Progress Note-Physician Normal [facility] Comment on above: Result Comment: Elec tronically Signed By: Jose VICTOR, Joseph Cortez\.br\Date and Time Signed: 08/04/22 09:43 EDT eGFRon 08-04-2022 GFR/1.73 sq M.predicted among non-blacks MDRD (S/P/Bld) [Vol rate/Area] 73 mL/min/1.73 m2 Normal >=59 [facility] Comment on above: Order Comment: Order added by Discern Expert. Result Comment: Mold Mover ana kidney disease could be indicated at eGFR's of less than 60 mL/min/1.73m2. Kidney failure is indicated at less than 15 mL/min/1.73m2. Performed By: #### 2 033662, 71084249, 7644943, 3369707 ####[facility] [address] [place] [address] Aldolaseon 08-03-2022 Aldolase [Catalytic activity/Vol] 3.7 unit/L Invalid Interpretation Code 3.3-10.3 [facility] Comment on above: Result Comment: Perf ormed at: [facility] [address] [id number] PhD Jessie Mayorga Performed By: #### 2 807700, 3122329 ####[facility] [address] [place] [address] BMPon 08-03-2022 Anion gap [Moles/Vol] 11 mmol/L Normal 6-16 [facility] Comment on above: Performed By: #### 1 7863008, 7798993 ####[facility] [address] [facility] [place] [address] Calcium [Mass/Vol] 9.2 mg/dL Normal 8.9-11.1 [facility] Comment on above: Performed By: #### 1 0118282, 0045991 ####[facility] [address] [place] [address] Chloride [Moles/Vol] 96 mmol/L Low 101-111 [facility] Comment on above: Performed By: #### 1 3105733, 3967110 ####[facility] [address] [place] [address] CO2 [Moles/Vol] 30 mmol/L Normal 21-31 [facility] Comment on above: Performed By: #### 1 5885449, 4088849 ####[facility] [address] [place] [address] Creatinine [Mass/Vol] 0.8 mg/dL Normal 0.5-1.3 [facility] Comment on above: Performed By: #### 1 1411705, 2364235 ####[facility] [address] [place] [address] Glucose [Mass/Vol] 88 mg/dL Normal 55-199 [facility] Comment on above: Result Comment: If t his glucose result represents a fasting glucose, interpretation should refer to the following reference range: 55-99 mg/dL Performed By: #### 1 1757298, 6228112 ####[facility] [address] [place] [address] Potassium [Moles/Vol] 3.7 mmol/L Normal 3.5-5.3 [facility] Comment on above: Performed By: #### 1 9555515, 6512766 ####[facility] [address] [place] [address] Sodium [Moles/Vol] 133 mmol/L Low 135-145 [facility] Comment on above: Performed By: #### 1 1940204, 2716250 ####[facility] [address] [place] [address] Urea nitrogen [Mass/Vol] 16 mg/dL Normal 5-21 [facility] Comment on above: Performed By: #### 1 6823763, 7126081 ####[facility] [address] [place] [address] Urea nitrogen/Creatinine [Mass ratio] 20 No Units Normal 10-20 [facility] Comment on above: Performed By: #### 1 7737395, 3427867 ####[facility] [address] [place] [address] CHEMISTRYOrdered By: SYSTEM SYSTEM on 08-03-2022 Anion gap [Moles/Vol] 11 mmol/L Normal 6 - 16 mEq/L [facility] Remisol Calcium [Mass/Vol] 9.2 mg/dL Normal 8.9 - 11. 1 mg/dL [facility] Chloride [Moles/Vol] 96 mmol/L Low 101 - 1 11 mmol/L [facility] CO2 [Moles/Vol] 30 mmol/L Normal 21 - 31 mmol/L [facility] Remisol Creatinine [Mass/Vol] 0.8 mg/dL Normal 0.5 - 1.3 mg/dL [facility] Remisol GFR/1.73 sq M.predicted among non-blacks MDRD (S/P/Bld) [Vol rate/Area] 73 mL/min/1.73 m2 Normal >=59mL/min /1.73 m2 [facility] Chem S Glucose [Mass/Vol] 88 mg/dL Normal 55 - 199 mg/dL [facility] Potassium [Moles/Vol] 3.7 mmol/L Normal 3.5 - 5.3 mmol/L [facility] Sodium [Moles/Vol] 133 mmol/L Low 135 - 145 mmol/L [facility] Urea nitrogen [Mass/Vol] 16 mg/dL Normal 5 - 21 mg/dL [facility] Urea nitrogen/Creatinine [Mass ratio] 20 mg/mg Normal 10 - [facility] Remisol Consultation Noteon 08-04-19 Consultation Note Normal [facility] Comment on above: Result Comment: Elec tronically Signed By: Joseph Garcia MD\.br\Date and Time Signed: 08/03/22 10:11 EDT Consultation Note Normal [facility] Comment on above: Result Comment: Elec tronically Signed By: Joseph Garcia MD\.br\Date and Time Signed: 08/03/22 09:00 EDT Interdisciplinary Note - Janette e Manageron 08-03-2022 Interdisciplinary Note - Circus Rider Normal [facility] Comment on above: Result Comment: Elec tronically Signed By: Delfin López\.br\Date and Time Signed: 08/03/22 15:18 EDT Monitor Recordon 08-03-2022 Monitor Record [id number]#1.00CD:127 Normal [facility] Monitor Record [id number]#[id number]:127 Normal [facility] Progress Note-Physicianon Progress Note-Physician [facility] Comment on above: Result Comment: Elec tronically Signed By: Alicia PORTILLO\.br\Date and Time Signed: 08/03/22 14:10 EDT\.br\Electronically Co-Signed By: Antonio HARMON MD\.br\Date and Time Co-Signed: 08/03/22 14:15 EDT eGFRon 08-03-2022 GFR/1.73 sq M.predicted among non-blacks MDRD (S/P/Bld) [Vol rate/Area] 73 mL/min/1.73 m2 Normal >=59 [facility] Comment on above: Order Comment: Order added by Discern Expert. Result Comment: Mold Mover ana kidney disease could be indicated at eGFR's of less than 60 mL/min/1.73m2. Kidney failure is indicated at less than 15 mL/min/1.73m2. Performed By: #### 1 [id number], 0291353 ####[address] [place] [address] Auto Diffon 08-02-2022 Basophils/100 WBC (Bld) 0.6 % Normal 0.0-2.0 [facility] Comment on above: Order Comment: Order Added by Discern Expert. Performed By: #### 2 632907, 2902770, 4955052, 90408151, 9940691 ####[address] [address] Basophils/Leukocytes Auto (Bld) [Pure # fraction] 0.0 E9/L Normal 0.0-0.2 [facility] Comment on above: Order Comment: Order Added by Discern Expert. Performed By: #### 2 297968, 2099843, 9842359, 55095372, 7380150 ####[address] [address] Eosinophils/100 WBC (Bld) 2.8 % Normal 0.0-8.0 [facility] Comment on above: Order Comment: Order Added by Discern Expert. Performed By: #### 2 124404, 5438668, 1607330, 58665616, 9911656 ####[address] [address] Eosinophils/Leukocytes Auto (Bld) [Pure # fraction] 0.1 E9/L Normal 0.0-0.5 [facility] Comment on above: Order Comment: Order Added by Discern Expert. Performed By: #### 2 231234, 5133164, 2962378, 27865308, 7723490 ####[address] [address] Lymphocytes/100 WBC (Bld) 22.4 % Normal 14.0-50.0 [facility] Comment on above: Order Comment: Order Added by Discern Expert. Performed By: #### 2 612219, 2553476, 5589605, 05058535, 9881280 ####[address] [address] Lymphocytes/Leukocytes Auto (Bld) [Pure # fraction] 1.1 E9/L Normal 1.0-4.0 [facility] Comment on above: Order Comment: Order Added by Discern Expert. Performed By: #### 2 387100, 6222038, 8477963, 49814834, 9554215 ####[facility] [address] [place] [address] Monocytes/100 WBC (Bld) 11.9 % Normal 4.0-14.0 [facility] Comment on above: Order Comment: Order Added by Discern Expert. Performed By: #### 2 858245, 1504720, 3874639, 69826987, 0089666 ####[address] [place] [address] Monocytes/Leukocytes Auto (Bld) [Pure # fraction] 0.6 E9/L Normal 0.2-1.0 [facility] Comment on above: Order Comment: Order Added by Josef Expert. Performed By: #### 2 309399, 0378836, 0294682, 05254000, 4832462 ####[address] [place] [address] Neutrophils/100 WBC (Bld) 62.3 % Normal 36.0-75.0 [facility] Comment on above: Order Comment: Order Added by Josef Expert. Performed By: #### 2 346660, 9821248, 1146983, 95013685, 0666991 ####[address] [place] [address] Neutrophils/Leukocytes Auto (Bld) [Pure # fraction] 3.0 E9/L Normal 2.0-7.5 [facility] Comment on above: Order Comment: Order Added by Josef Expert. Performed By: #### 2 720415, 5696528, 3874128, 17201077, 7535628 ####[address] [place] [address] BMPon 08-02-2022 Anion gap [Moles/Vol] 8 mmol/L Normal 6-16 [facility] Comment on above: Performed By: #### 2 874731, 6035770, 9044625, 01140204, 4315920 ####[facility] [address] [place] [place] [address] Calcium [Mass/Vol] 8.3 mg/dL Low 8.9-11.1 [facility] Comment on above: Performed By: #### 2 223127, 2229557, 9338817, 76552700, 4151227 ####[facility] [address] [place] [place] [address] Chloride [Moles/Vol] 97 mmol/L Low 101-111 [facility] Comment on above: Performed By: #### 2 333363, 5401330, 6027636, 51452284, 6472227 ####[facility] [address] [place] [address] CO2 [Moles/Vol] 31 mmol/L Normal 21-31 [facility] Comment on above: Performed By: #### 2 052619, 6505942, 1121641, 77208049, 1320783 ####[facility] [address] [address] Creatinine [Mass/Vol] 0.9 mg/dL Normal 0.5-1.3 [facility] Comment on above: Performed By: #### 2 908746, 7259855, 4598006, 40012055, 8286363 ####[facility] [address] [place] [address] Glucose [Mass/Vol] 86 mg/dL Normal 55-199 [facility] Comment on above: Result Comment: If t his glucose result represents a fasting glucose, interpretation should refer to the following reference range: 55-99 mg/dL Performed By: #### 2 909357, 1243490, 7924442, 14394593, 1657529 ####[facility] [address] [place] [address] Potassium [Moles/Vol] 3.2 mmol/L Low 3.5-5.3 [facility] Comment on above: Performed By: #### 2 772749, 1831951, 8667269, 89032182, 8957680 ####[facility] [address] [place] [address] Sodium [Moles/Vol] 133 mmol/L Low 135-145 [facility] Comment on above: Performed By: #### 2 610066, 7310914, 0283067, 32604399, 1666537 ####[facility] [address] [place] [address] Urea nitrogen [Mass/Vol] 27 mg/dL High 5-21 [facility] Comment on above: Performed By: #### 2 231394, 9274956, 5689373, 40383222, 2355174 ####[facility] [address] [place] [address] Urea nitrogen/Creatinine [Mass ratio] 30 No Units High 10-20 [facility] Comment on above: Performed By: #### 2 338432, 5862243, 8593229, 82956680, 5907368 ####[facility] [address] [place] [address] CBC w/ Auto Diffon 3 Erythrocyte distribution width (RBC) [Ratio] 13.8 % Normal 10.9-14.2 [facility] Comment on above: Performed By: #### 2 810453, 6397307, 2399413, 92323136, 5345085 ####[address] [place] [address] Hematocrit (Bld) [Volume fraction] 30.7 % Low 34.0-46.0 [facility] Comment on above: Performed By: #### 2 837236, 3934234, 1470967, 30200872, 6683480 ####[facility] [address] [place] [address] Hemoglobin (Bld) [Mass/Vol] 10.5 g/dL Low 12.0-16.0 [facility] Comment on above: Performed By: #### 2 040796, 2058162, 5115303, 51104297, 8624393 ####[address] [place] [address] MCH (RBC) [Entitic mass] 29.5 pg Normal 27.0-34.0 [facility] Comment on above: Performed By: #### 2 482865, 3848860, 6213370, 67075691, 0774170 ####[address] [address] MCHC (RBC) [Mass/Vol] 34.1 g/dL Normal 31.4-36.0 [facility] Comment on above: Performed By: #### 2 218270, 3826695, 4331835, 46815542, 0607699 ####[address] [address] MCV (RBC) [Entitic vol] 86.6 fL Normal 80.0-100.0 [facility] Comment on above: Performed By: #### 2 011463, 2041386, 8931307, 64304035, 6460744 ####[address] [address] Platelet mean volume (Bld) [Entitic vol] 7.6 fL Normal 6.4-10.8 [facility] Comment on above: Performed By: #### 2 910585, 6671512, 8812338, 82674103, 4045491 ####[address] [address] Platelets (Bld) [#/Vol] 186.0 E9/L Normal 150.0-500. 0 [facility] Comment on above: Performed By: #### 2 889125, 6734195, 0835808, 48093374, 3075759 ####[address] [address] RBC (Bld) [#/Vol] 3.6 E12/L Low 4.3-5.9 [facility] Comment on above: Performed By: #### 2 089261, 6738056, 4567786, 71735766, 2994976 ####[address] [place] [address] WBC corrected for nucl RBC Auto (Bld) [#/Vol] 4.9 E9/L Normal 4.0-11.0 [facility] Comment on above: Performed By: #### 2 006979, 4591149, 7286531, 85910887, 8021545 ####[place] [facility] [address] [place] [address] CHEMISTRYOrdered By: SYSTEM SYSTEM on 08-02-2022 Anion gap [Moles/Vol] 8 mmol/L Normal 6 - 16 mEq/L [facility] Calcium [Mass/Vol] 8.3 mg/dL Low 8.9 - 11. 1 mg/dL [facility] Chloride [Moles/Vol] 97 mmol/L Low 101 - 1 11 mmol/L [facility] CK [Catalytic activity/Vol] 99 [iU]/d Normal 14 - 261 Int._Unit/ L [facility] CO2 [Moles/Vol] 31 mmol/L Normal 21 - 31 mmol/L [facility] Creatinine [Mass/Vol] 0.9 mg/dL Normal 0.5 - 1.3 mg/dL [facility] GFR/1.73 sq M.predicted among non-blacks MDRD (S/P/Bld) [Vol rate/Area] 63 mL/min/1.73 m2 Normal >=59mL/min /1.73 m2 [facility] Chem S Glucose [Mass/Vol] 86 mg/dL Normal 55 - 199 mg/dL [facility] Potassium [Moles/Vol] 3.2 mmol/L Low 3.5 - 5.3 mmol/L FT Remisol Sodium [Moles/Vol] 133 mmol/L Low 135 - 145 mmol/L FT Remisol Urea nitrogen [Mass/Vol] 27 mg/dL High 5 - 21 mg/dL FT Remisol Urea nitrogen/Creatinine [Mass ratio] 30 mg/mg High 10 - 20 [facility] Remisol CHEMISTRYOrdered By: Kyrie Begum on 08-02-2022 Osmolality [Osmolality] 283 mosm/kg Normal 275 - 295 mOsm/kg [facility] [place] Man UA SS CKon 08-02-2022 CK [Catalytic activity/Vol] 99 Int._Unit/L Normal 14-261 [facility] Comment on above: Performed By: #### [id number] ####[facility] [address] [place] [address] ED Clinical Summaryon 2022 ED Clinical Summary Normal [facility] ED Patient Education Noteon 08-02-2022 ED Patient Education Note Normal [facility] ED Patient Summaryon 023 ED Patient Summary Normal [facility] HEMATOLOGYOrdered By: SYSTEM SYSTEM on 08-02-2022 Basophils/100 WBC (Bld) 0.6 % Normal 0.0 - 2.0 % [facility] Basophils/Leukocytes Auto (Bld) [Pure # fraction] 0.0 E9/L Normal 0.0 - 0.2 E9/L [facility] Eosinophils/100 WBC (Bld) 2.8 % Normal 0.0 - 8.0 % [facility] Eosinophils/Leukocytes Auto (Bld) [Pure # fraction] 0.1 E9/L Normal 0.0 - 0.5 E9/L [facility] Lymphocytes/100 WBC (Bld) 22.4 % Normal 14.0 - 50.0 % [facility] Lymphocytes/Leukocytes Auto (Bld) [Pure # fraction] 1.1 E9/L Normal 1.0 - 4.0 E9/L [facility] Monocytes/100 WBC (Bld) 11.9 % Normal 4.0 - 14.0 % [facility] Monocytes/Leukocytes Auto (Bld) [Pure # fraction] 0.6 E9/L Normal 0.2 - 1.0 E9/L [facility] Neutrophils/100 WBC (Bld) 62.3 % Normal 36.0 - 75.0 % [facility] Neutrophils/Leukocytes Auto (Bld) [Pure # fraction] 3.0 E9/L Normal 2.0 - 7.5 E9/L [facility] HEMATOLOGYOrdered By: Aurea Wick on 08-02-2022 Erythrocyte distribution width (RBC) [Ratio] 13.8 % Normal 10.9 - 14.2 % [facility] Hematocrit (Bld) [Volume fraction] 30.7 % Low 34.0 - 46.0 % [facility] Hemoglobin (Bld) [Mass/Vol] 10.5 g/dL Low 12.0 - 16.0 gm/dL [facility] MCH (RBC) [Entitic mass] 29.5 pg Normal 27.0 - 34.0 pg [facility] MCHC (RBC) [Mass/Vol] 34.1 g/dL Normal 31.4 - 36.0 gm/dL [facility] MCV (RBC) [Entitic vol] 86.6 fL Normal 80.0 - 100.0 fL [facility] Platelet mean volume (Bld) [Entitic vol] 7.6 fL Normal 6.4 - 10.8 fL [facility] Platelets (Bld) [#/Vol] 186.0 E9/L Normal 150.0 - 500.0 E9/L [facility] RBC (Bld) [#/Vol] 3.6 E12/L Low 4.3 - 5.9 E12/L [facility] WBC corrected for nucl RBC Auto (Bld) [#/Vol] 4.9 E9/L Normal 4.0 - 11.0 E9/L [facility] Interdisciplinary Note - Janette e Manageron 08-02-2022 Interdisciplinary Note - Circus Rider Normal [facility] Comment on above: Result Comment: Elec tronically Signed By: Jg GONZALEZ, Stacey\.chepe\Date and Time Signed: 08/02/22 09:27 EDT Interdisciplinary Note - Oren n 08-02-2022 Interdisciplinary Note - OT Ot six clicks score 22/24 = no further OT inpatient needs. Patient is INd w/ basic adls and modified Ind w/ transfers. Patient has all necessary bathroom dme in place at home. DC inpatient Ot services. Normal [facility] MRI Brain w/o Contraston MRI Brain w/o Contrast Normal [facility] Message from Medicareon 07-11 Message from Medicare [id number]#1.00CD:127 Normal [facility] Monitor Recordon 08-02-2022 Monitor Record [id number]#1.00CD:127 Normal [facility] Monitor Record [id number]#1.00CD:127 Normal [facility] Monitor Record [id number]#1.00CD:127 Normal [facility] Monitor Record [id number]#1.00CD:127 Normal [facility] Monitor Record [id number]#1.00CD:127 Normal [facility] Monitor Record [id number]#1.00CD:127 Normal [facility] Monitor Record [id number]#1.00CD:127 Normal [facility] Osmolalityon 08-02-2022 Osmolality [Osmolality] 283 mosm/kg Normal 275-295 [facility] Comment on above: Performed By: #### 2 489100, 6379457, 3134147, 43946757, 7811355 ####[facility] [address] [place] [address] Progress Note-Physicianon Progress Note-Physician [facility] Comment on above: Result Comment: Elec tronically Signed By: Alicia PORTILLO\.br\Date and Time Signed: 08/02/22 12:47 EDT\.br\Electronically Co-Signed By: Roz RAMIREZ MD\.br\Date and Time Co-Signed: 08/02/22 12:59 EDT RAD - MRI Screening Formon 0 08-02-2022 RAD - MRI Screening Form [id number]#1.00CD:127 Normal [facility] Reference Laboratory Testing Ordered By: Yandy DomainUser on 08-02-2022 Aldolase [Catalytic activity/Vol] 3.7 unit/L Invalid Interpretation Code 3.3-10.3un it/L [facility] SendOutsSS Comment on above: Result Comment: Perf ormed at: [facility] [address] [place], [place] [id number] PhD Jessie Mukesh U Creatinineon 08-02-2022 Creatinine (U) [Mass/Vol] 35.7 mg/dL Invalid Interpretation Code [facility] Comment on above: Result Comment: The reference range and other method performance specifications have not been established for this test; results should be integrated into the clinical context for interpretation. Performed By: #### 2 095179, 7510416, 0987496 ####[facility] [address] [place] [address] U Osmolalityon 08-02-2022 U Osmolality 295 mOsm/kg Normal 50-1400 [facility] Comment on above: Performed By: #### 2 054062, 7121342, 0754124 ####[facility] [address] [place] [address] U Sodiumon 08-02-2022 Sodium (U) [Moles/Vol] 27 mmol/L Invalid Interpretation Code [facility] Comment on above: Result Comment: The reference range and other method performance specifications have not been established for this test; results should be integrated into the clinical context for interpretation. Performed By: #### 2 682304, 7649725, 6082917 ####[facility] [address] [place] [address] eGFRon 08-02-2022 GFR/1.73 sq M.predicted among non-blacks MDRD (S/P/Bld) [Vol rate/Area] 63 mL/min/1.73 m2 Normal >=59 [facility] Comment on above: Order Comment: Order added by Discern Expert. Result Comment: Mold Mover ana kidney disease could be indicated at eGFR's of less than 60 mL/min/1.73m2. Kidney failure is indicated at less than 15 mL/min/1.73m2. Performed By: #### 2 982903, 5942534, 7838154, 85115603, 6419372 ####[facility] [address] [place] [address] Auto Diffon 08-01-2022 Basophils/100 WBC (Bld) 0.3 % Normal 0.0-2.0 [facility] Comment on above: Order Comment: Order Added by Discern Expert. Performed By: #### 1 4277096, 9903643, 1515186, 8429900, 4942415, 05766522, 07469200, 88437796 ####[address] [address] Basophils/Leukocytes Auto (Bld) [Pure # fraction] 0.0 E9/L Normal 0.0-0.2 [facility] Comment on above: Order Comment: Order Added by Discern Expert. Performed By: #### 1 1533467, 9902391, 3255534, 8777911, 9514580, 74176795, 13962162, 09730194 ####[address] [address] Eosinophils/100 WBC (Bld) 1.9 % Normal 0.0-8.0 [facility] Comment on above: Order Comment: Order Added by Discern Expert. Performed By: #### 1 4134785, 6969575, 7597151, 6087478, 5070495, 12880731, 02438652, 80208438 ####[address] [address] Eosinophils/Leukocytes Auto (Bld) [Pure # fraction] 0.1 E9/L Normal 0.0-0.5 [facility] Comment on above: Order Comment: Order Added by Discern Expert. Performed By: #### 1 8084867, 9191422, 5534486, 1813477, 9473617, 57800465, 84866724, 76392803 ####[address] [place] [address] Lymphocytes/100 WBC (Bld) 17.1 % Normal 14.0-50.0 [facility] Comment on above: Order Comment: Order Added by Discern Expert. Performed By: #### 1 3260238, 2555739, 3030971, 8268918, 2225984, 52842849, 40079159, 99147873 ####[address] [place] [address] Lymphocytes/Leukocytes Auto (Bld) [Pure # fraction] 1.3 E9/L Normal 1.0-4.0 [facility] Comment on above: Order Comment: Order Added by Discern Expert. Performed By: #### 1 3194838, 7848565, 7429302, 9486284, 6676248, 54243246, 34148999, 79067433 ####[address] [place] [address] Monocytes/100 WBC (Bld) 8.4 % Normal 4.0-14.0 [facility] Comment on above: Order Comment: Order Added by Discern Expert. Performed By: #### 1 0577719, 3102993, 4286504, 9160248, 0656559, 88397071, 62690756, 39425927 ####[address] [address] Monocytes/Leukocytes Auto (Bld) [Pure # fraction] 0.6 E9/L Normal 0.2-1.0 [facility] Comment on above: Order Comment: Order Added by Discern Expert. Performed By: #### 1 5935061, 7005290, 3882373, 1217363, 2915905, 07746301, 38802964, 61692921 ####[address] [place] [address] Neutrophils/100 WBC (Bld) 72.3 % Normal 36.0-75.0 [facility] Comment on above: Order Comment: Order Added by Discern Expert. Performed By: #### 1 2224908, 2929618, 3550172, 9866493, 6841039, 23323527, 41273676, 56113102 ####[address] [place] [address] Neutrophils/Leukocytes Auto (Bld) [Pure # fraction] 5.5 E9/L Normal 2.0-7.5 [facility] Comment on above: Order Comment: Order Added by Discern Expert. Performed By: #### 1 2244517, 1936862, 1212043, 1992336, 6845761, 73632151, 56241296, 91545688 ####[facility] [address] [place] [address] BMPon 08-01-2022 Creatinine [Mass/Vol] 1.2 mg/dL Normal 0.5-1.3 [facility] Comment on above: Performed By: #### 1 5920891, 9686217, 5357762, 2751599, 3777101, 08208198, 39179632, 58345823 ####[facility] [address] [place] [address] Urea nitrogen [Mass/Vol] 39 mg/dL High 5-21 [facility] Comment on above: Performed By: #### 1 4169613, 4975085, 6817526, 6677072, 4623619, 51884171, 24491708, 78876475 ####[facility] [address] [place] [address] Urea nitrogen/Creatinine [Mass ratio] 32 No Units High 10-20 [facility] Comment on above: Performed By: #### 1 4528359, 4410636, 7561641, 9722595, 0716630, 62123527, 98403372, 49807892 ####[facility] [address] [place] [address] Anion gap [Moles/Vol] 17 mmol/L High 6-16 [facility] Comment on above: Performed By: #### 1 3189300, 0692290, 9027592, 3748704, 4319687, 15437631, 56125366, 50728347 ####[facility] [address] [place] [address] Calcium [Mass/Vol] 9.3 mg/dL Normal 8.9-11.1 [facility] Comment on above: Performed By: #### 1 3749903, 4861280, 1834494, 2857786, 3520276, 37800343, 45954557, 60527166 ####[facility] [address] [place] [address] Chloride [Moles/Vol] 82 mmol/L Low 101-111 [facility] Comment on above: Performed By: #### 1 5599999, 3027698, 7930929, 3494956, 8694623, 26686847, 27881296, 65224106 ####[facility] [address] [place] [address] CO2 [Moles/Vol] 32 mmol/L High 21-31 [facility] Comment on above: Performed By: #### 1 3218668, 5581193, 6300537, 5172207, 8005151, 14330213, 40773931, 79222277 ####[facility] [address] [place] [address] Glucose [Mass/Vol] 126 mg/dL Normal 55-199 [facility] Comment on above: Result Comment: If t his glucose result represents a fasting glucose, interpretation should refer to the following reference range: 55-99 mg/dL Performed By: #### 1 1993323, 2499202, 3486984, 1715978, 8137527, 45013651, 32894829, 37670657 ####[facility] [address] [place] [address] Potassium [Moles/Vol] 2.9 mmol/L Low 3.5-5.3 [facility] Comment on above: Performed By: #### 1 8871138, 1568997, 4859391, 5078430, 1020771, 49663967, 97274652, 56178409 ####[facility] [address] [place] [address] Sodium [Moles/Vol] 128 mmol/L Low 135-145 [facility] Comment on above: Performed By: #### 1 5103070, 6770021, 1497441, 6573685, 6457215, 05906137, 05466743, 58988382 ####[facility] [address] [place] [address] CBC w/ Auto Diffon Erythrocyte distribution width (RBC) [Ratio] 13.8 % Normal 10.9-14.2 [facility] Comment on above: Performed By: #### 1 6010129, 7227063, 3981197, 2824971, 9857849, 98300264, 65446487, 81098458 ####[facility] [address] [place] [address] Hematocrit (Bld) [Volume fraction] 35.6 % Normal 34.0-46.0 [facility] Comment on above: Performed By: #### 1 5415703, 9047947, 3729176, 7144985, 6465306, 82737249, 80653964, 69340461 ####[address] [place] [address] Hemoglobin (Bld) [Mass/Vol] 12.2 g/dL Normal 12.0-16.0 [facility] Comment on above: Performed By: #### 1 7161153, 1231948, 7707060, 0647745, 5530233, 78238983, 53162516, 75166412 ####[address] [place] [address] MCH (RBC) [Entitic mass] 29.3 pg Normal 27.0-34.0 [facility] Comment on above: Performed By: #### 1 0472219, 8589124, 3432671, 3326515, 9199359, 48599675, 55294726, 42758918 ####[facility] [address] [place] [address] MCHC (RBC) [Mass/Vol] 34.3 g/dL Normal 31.4-36.0 [facility] Comment on above: Performed By: #### 1 1922291, 1811646, 9926094, 9835026, 1151638, 76377145, 09391435, 32634576 ####[address] [address] MCV (RBC) [Entitic vol] 85.5 fL Normal 80.0-100.0 [facility] Comment on above: Performed By: #### 1 3035635, 0315256, 2893811, 0800823, 8155027, 79023882, 01337756, 90250945 ####[facility] [address] [place] [address] Platelet mean volume (Bld) [Entitic vol] 8.0 fL Normal 6.4-10.8 [facility] Comment on above: Performed By: #### 1 0959230, 7679577, 2625893, 8394978, 0110540, 41309452, 74344711, 59101556 ####[address] [place] [address] Platelets (Bld) [#/Vol] 233.0 E9/L Normal 150.0-500. 0 [facility] Comment on above: Performed By: #### 1 0015232, 7379397, 7371184, 5462612, 5200306, 17899338, 40588985, 61537208 ####[address] [place] [address] RBC (Bld) [#/Vol] 4.2 E12/L Low 4.3-5.9 [facility] Comment on above: Performed By: #### 1 0206586, 4954022, 1607411, 5663788, 4523046, 64790102, 55269593, 78322273 ####[facility] [address] [place] [address] WBC corrected for nucl RBC Auto (Bld) [#/Vol] 7.7 E9/L Normal 4.0-11.0 [facility] Comment on above: Performed By: #### 1 7995844, 8968570, 4658996, 1047898, 0600944, 43685756, 09502901, 37071404 ####[facility] [address] [place] [address] CHEMISTRYOrdered By: Shreya Suazo on 08-01-2022 Creatinine (U) [Mass/Vol] 35.7 mg/dL Invalid Interpretation Code [facility] Remisol Sodium (U) [Moles/Vol] 27 mmol/L Invalid Interpretation Code [facility] Remisol U Osmolality 295 mOsm/kg Normal 50 - 1400 mOsm/kg [facility] Man UA SS CHEMISTRYOrdered By: SYSTEM SYSTEM on 08-01-2022 Magnesium [Mass/Vol] 1.8 mg/dL Normal 1.3 - 2 .4 mg/dL [facility] Remisol Troponin I.cardiac [Mass/Vol] 5.10 pg/mL Low 10.10 - 27.10 pg/mL [facility] Remisol TSH Qn 2.25 m[IU]/L Normal 0.34 - 5.60 mcIU/mL [facility] Remisol CHEMISTRYOrdered By: Lab ROP User on 08-01-2022 Glucose [Mass/Vol] 140 mg/dL High 55 - 99 mg/dL [facility] POC Subsection Comment on above: Result Comment: Abdullahi RICHMOND POC Device SN [id number] Invalid Interpretation Code [facility] POC Subsection POC User ID [id number] Invalid Interpretation Code [facility] POC Subsection POC Username NITA TERRAZAS Invalid Interpretation Code [facility] POC Subsection COAGULATIONOrdered By: Yolanda Suazo on 08-01-2022 aPTT Coag (PPP) [Time] 36.9 s High 25.1 - 36.5 second(s) [facility] Auto Coag INR Coag (PPP) [Relative time] 1.1 {INR} Invalid Interpretation Code [facility] Auto Coag PT Coag (PPP) [Time] 12.0 s Normal 9.4 - 1 2.5 second(s) [facility] Auto Coag CT Head or Brain w/o Contras ton 08-01-2022 CT Head or Brain w/o Contrast Normal [facility] Capillary Glucose POCon 07-11 Glucose [Mass/Vol] 140 mg/dL High 55-99 [facility] Comment on above: Result Comment: Abdullahi RICHMOND Performed By: #### 2 [id number] ####[facility] [address] [place] [address] Consent for Treatmenton 07-11 Consent for Treatment [id number]#1.00CD:127 Normal [facility] ED Note-Physicianon 08-02-19 ED Note-Physician Normal [facility] Comment on above: Result Comment: Elec tronically Signed By: Benton Sutherland DO\.br\Date and Time Signed: 08/01/22 20:46 EDT ED Note-Physician Normal [facility] Comment on above: Result Comment: Elec tronically Signed By: Hank Beard DO\.br\Date and Time Signed: 08/01/22 18:41 EDT HEMATOLOGYOrdered By: SYSTEM SYSTEM on 08-01-2022 Basophils/100 WBC (Bld) 0.3 % Normal 0.0 - 2.0 % [facility] Basophils/Leukocytes Auto (Bld) [Pure # fraction] 0.0 E9/L Normal 0.0 - 0.2 E9/L [facility] Eosinophils/100 WBC (Bld) 1.9 % Normal 0.0 - 8.0 % [facility] Eosinophils/Leukocytes Auto (Bld) [Pure # fraction] 0.1 E9/L Normal 0.0 - 0.5 E9/L [facility] Lymphocytes/100 WBC (Bld) 17.1 % Normal 14.0 - 50.0 % [facility] Lymphocytes/Leukocytes Auto (Bld) [Pure # fraction] 1.3 E9/L Normal 1.0 - 4.0 E9/L [facility] Monocytes/100 WBC (Bld) 8.4 % Normal 4.0 - 14.0 % [facility] Monocytes/Leukocytes Auto (Bld) [Pure # fraction] 0.6 E9/L Normal 0.2 - 1.0 E9/L [facility] Neutrophils/100 WBC (Bld) 72.3 % Normal 36.0 - 75.0 % [facility] Neutrophils/Leukocytes Auto (Bld) [Pure # fraction] 5.5 E9/L Normal 2.0 - 7.5 E9/L [facility] HEMATOLOGYOrdered By: Stephani Cruz on 08-01-2022 Erythrocyte distribution width (RBC) [Ratio] 13.8 % Normal 10.9 - 14.2 % [facility] Hematocrit (Bld) [Volume fraction] 35.6 % Normal 34.0 - 46.0 % [facility] Hemoglobin (Bld) [Mass/Vol] 12.2 g/dL Normal 12.0 - 16.0 gm/dL [facility] MCH (RBC) [Entitic mass] 29.3 pg Normal 27.0 - 34.0 pg [facility] MCHC (RBC) [Mass/Vol] 34.3 g/dL Normal 31.4 - 36.0 gm/dL [facility] MCV (RBC) [Entitic vol] 85.5 fL Normal 80.0 - 100.0 fL [facility] Platelet mean volume (Bld) [Entitic vol] 8.0 fL Normal 6.4 - 10.8 fL [facility] Platelets (Bld) [#/Vol] 233.0 E9/L Normal 150.0 - 500.0 E9/L [facility] RBC (Bld) [#/Vol] 4.2 E12/L Low 4.3 - 5.9 E12/L [facility] WBC corrected for nucl RBC Auto (Bld) [#/Vol] 7.7 E9/L Normal 4.0 - 11.0 E9/L [facility] Magnesiumon 08-01-2022 Magnesium [Mass/Vol] 1.8 mg/dL Normal 1.3-2.4 [facility] Comment on above: Performed By: #### 1 9253606, 3283735, 4568254, 1270291, 5630882, 56397338, 49144637, 05066556 ####[facility] [address] [place] [address] PT & PTTon 08-01-2022 aPTT Coag (PPP) [Time] 36.9 second(s) High 25.1-36.5 [facility] Comment on above: Result Comment: Para meter 15 days - 4 weeks 1 - 5 months 6 - 11 months 1 - 5 years 6 - 10 years 11 - 17 years PTT Mean: 35.4 (27.6-45.6) Mean: 33.5 (24.8-40.7) Mean: 32.4 (25.1-40.7) Mean: 31.6 (24.0-39.2) Mean: 31.6 (26.9-38.7) Mean: 31.0 (24.6-38.4) Pediatric Reference ranges were obtained from a study by claribel Haas prepared from 1437 samples obtained at 7 different centers using the same coagulation reagent and instrumentation as [facility]. Currently there are no coagulation studies available worldwide for children to 14 days, and no normal ranges. Heparin therapeutic range (represented by Anti-Factor Xa activity of 0.2 - 0.4 U/mL) corresponds to PTT of 56.6 - 109.0 sec. Performed By: #### 1 8018525, 5599069, 4856332, 6072657, 2994767, 44487002, 11977491, 80319291 ####[facility] [address] [place] [address] INR Coag (PPP) [Relative time] 1.1 {INR} Invalid Interpretation Code [facility] Comment on above: Result Comment: INR results are specifically intended to assess patients stabilized on long-term Anticoagulation therapy suggested INR?s ?Less Intensive Anticoagulation? 2.0 ? 3.0Conventional Range 3.0 ? 4.5 Performed By: #### 1 5437541, 1202576, 3829386, 5462298, 8558125, 36814243, 14017022, 05885493 ####[facility] [address] [place] [address] PT Coag (PPP) [Time] 12.0 second(s) Normal 9.4-12.5 [facility] Comment on above: Result Comment: 15 d ays - 4 weeks 1 - 5 months 6 -11 months 1 ? 5 years 6 ? 10 years 11 -17 years Mean: 11.2 (9.5 ? 12.6) Mean: 11.0 (9.7 ? 12.8) Mean: 11.0 (9.8 ? 13.0) Mean: 11.3 (9.9 ? 13.4) Mean: 11.7 (10.0 ? 14.6) Mean: 11.8 (10.0 - 14.1) Pediatric Reference ranges were obtained from a study by Dharmesh Harvard, et al. prepared from 1437 samples obtained at 7 different centers using the same coagulation reagent and instrumentation as [facility]. Currently there are no coagulation studies available worldwide for children to 14 days, and no normal ranges. Performed By: #### 1 1259873, 7895884, 8151613, 1982163, 2474450, 18518455, 89027044, 04878892 ####[facility] [address] [place] [address] TSH With T4fr Reflexon 08-01 TSH Qn 2.25 m[IU]/L Normal 0.34-5.60 [facility] Comment on above: Performed By: #### 1 6509315, 4502642, 2996020, 1342510, 5046097, 58311342, 79230950, 03189720 ####[address] [place] [address] Troponin 0 Hr.on 08-01-2022 Troponin I.cardiac [Mass/Vol] 5.10 pg/mL Low 10.10-27.1 0 [facility] Comment on above: Result Comment: The 95% CI (Confidence Interval) PPV (Positive Predictive Value) for myocardial infarction in females is 38 pg/mL, in males 51 pg/mL. The results should be used in conjunction with clinical conditions of myocardial infarction.(Access High Sensitivity Troponin I Instructions For Use, Raegan Gregory, October 2017) Performed By: #### 1 0268858, 6480970, 5324735, 9551069, 0166172, 85291166, 93032013, 27548372 ####[facility] [address] [place] [address] UA With Cult Reflexon 2022 Bilirubin Ql (U) Negative Normal Negative [facility] Comment on above: Performed By: #### 1 0152424 ####[facility] [address] [place] [address] Clarity (U) CLEAR Normal Clear [facility] Comment on above: Performed By: #### 1 6082278 ####[address] [place] [address] Color (U) YELLOW Normal Yellow [facility] Comment on above: Performed By: #### 1 8675412 ####[address] [address] Epithelial cells.squamous LM.HPF (Urine sed) [#/Area] 0-2 Normal 0-2 [facility] Comment on above: Performed By: #### 1 9111544 ####[address] [address] Glucose Test strip (U) [Mass/Vol] Negative Normal Negative [facility] Comment on above: Performed By: #### 1 0326742 ####[address] [address] Hemoglobin Ql (U) Negative Normal Negative [facility] Comment on above: Performed By: #### 1 3443162 ####[address] [address] Ketones (U) [Mass/Vol] Negative Normal Negative [facility] Comment on above: Performed By: #### 1 4786078 ####[facility] [address] [place] [address] [place].plasma/Amistad .RBC (Bld) [Mass ratio] 0-3 Normal 0-3 [facility] Comment on above: Performed By: #### 1 2741587 ####[address] [address] Nitrite Ql (U) Negative Normal Negative [facility] Comment on above: Performed By: #### 1 3363550 ####[facility] [address] [place] [address] pH (U) 7.0 [pH] Invalid Interpretation Code 5.0-9.0 [facility] Comment on above: Performed By: #### 1 3423362 ####[facility] [address] [place] [address] Protein (U) [Mass/Vol] Negative Normal Negative [facility] Comment on above: Performed By: #### 1 3880882 ####[facility] [address] [place] [address] Specific gravity (U) [Rel density] <=1.005 Invalid Interpretation Code 1.005-1.03 0 [facility] Comment on above: Performed By: #### 1 4885894 ####[place] [address] Type of Urine collection method Clean Catch Normal [facility] Comment on above: Performed By: #### 1 3992677 ####[place] [address] Urobilinogen Qn (U) 0.2 {Lexie'U}/dL Normal 0.0-1.0 [facility] Comment on above: Performed By: #### [id number] ####[place] [address] WBC Auto Ql (U) Negative Normal Negative [facility] Comment on above: Performed By: #### 1 [id number] ####[place] [address] WBC LM.HPF (Urine sed) [#/Area] 0-5 Normal 0-5 [facility] Comment on above: Performed By: #### [id number] ####[place] [address] URINALYSISOrdered By: Maxim Suazo on 08-01-2022 Bilirubin Ql (U) Negative (08/01/22 7:57 PM) Normal Negative FT UA Auto SS Clarity (U) Clear (08/01/22 7:57 PM) Normal Clear FT UA Auto SS Color (U) Yellow (08/01/22 7:57 PM) Normal Yellow FT UA Auto SS Epithelial cells.squamous LM.HPF (Urine sed) [#/Area] 0-2 /HPF Normal 0-2/HPF FT UA Aut o SS Glucose Test strip (U) [Mass/Vol] Negative (08/01/22 7:57 PM) Normal Negative [facility] UA Auto SS Hemoglobin Ql (U) Negative (08/01/22 7:57 PM) Normal Negative [facility] UA Auto SS Ketones (U) [Mass/Vol] Negative (08/01/22 7:57 PM) Normal Negative [facility] UA Auto SS [place]ad.plasma/Amistad .RBC (Bld) [Mass ratio] 0-3 /HPF Normal 0-3/HPF [facility] Auto SS Nitrite Ql (U) Negative (08/01/22 7:57 PM) Normal Negative [facility] Auto [facility] pH (U) 7.0 *NA* (08/01/22 7:57 PM) Invalid Interpretation Code 5.0 - 9.0 [facility] Auto SS Protein (U) [Mass/Vol] Negative (08/01/22 7:57 PM) Normal Negative [facility] Auto SS Specific gravity (U) [Rel density] <=1.005 *NA* (08/01/22 7:57 PM) Invalid Interpretation Code 1.005 - 1.030 [facility] Auto SS UA Spec Desc Clean Catch (08/01/22 7:57 PM) Normal [facility] Auto SS Urobilinogen Qn (U) [id number] {Lexie'U}/dL Normal 0.0 - 1.0 EU/dL [facility] SS WBC Auto Ql (U) Negative (08/01/22 7:57 PM) Normal Negative [facility] Auto SS WBC LM.HPF (Urine sed) [#/Area] 0-5 /HPF Normal 0-5/HPF [facility] Auto SS XR Chest Single Viewon 08-01 XR Chest Single View Normal [facility] eGFRon 08-01-2022 GFR/1.73 sq M.predicted among non-blacks MDRD (S/P/Bld) [Vol rate/Area] 45 mL/min/1.73 m2 Low >=59 [facility] Comment on above: Order Comment: Order added by Discern Expert. Result Comment: Mold Mover ana kidney disease could be indicated at eGFR's of less than 60 mL/min/1.73m2. Kidney failure is indicated at less than 15 mL/min/1.73m2. Performed By: #### 1 [id number] ####[facility] [id number] [place] [address] Tobacco Screening.on 023 Adult depression screening assessment No [facility] [address] DO Work Phone: Fall risk assessment a) No falls within the last year [facility] [address] DO Work Phone: [phone] Tobacco use status CPHS b) No [facility] [address] DO Work Phone: CHEMISTRYOrdered By: SYSTEM SYSTEM on 06-29-2022 Anion gap [Moles/Vol] 11 mmol/L Normal 6 - 16 mEq/L [facility] Remisol Chloride [Moles/Vol] 100 mmol/L Low 101 - 1 11 mmol/L [facility] CO2 [Moles/Vol] 27 mmol/L Normal 21 - 31 mmol/L [facility] Cobalamin (Vitamin B12) [Mass/Vol] 541 pg/mL Normal 50 - 1500 pg/mL [facility] Ferritin [Mass/Vol] 57 ng/mL Normal 11 - 307 ng/mL [facility] Folate [Mass/Vol] ng/mL Normal >=6.7ng/mL [facility] Re misol Iron [Mass/Vol] 66 ug/dL Normal 35 - 153 mcg/dL [facility] Iron binding capacity [Mass/Vol] 308 ug/dL Normal 250 - 400 mcg/dL [facility] LDH [Catalytic activity/Vol] 145 [iU]/d Normal 93 - 218 Int._Unit/ L [facility] Potassium [Moles/Vol] 3.9 mmol/L Normal 3.5 - 5.3 mmol/L [facility] Sodium [Moles/Vol] 134 mmol/L Low 135 - 145 mmol/L [facility] Transferrin [Mass/Vol] 220 mg/dL Normal 200 - 370 mg/dL [facility] TSH Qn 3.88 m[IU]/L Normal 0.34 - 5.60 mcIU/mL [facility] Rem[facility] HEMATOLOGYOrdered By: SYSTEM SYSTEM on 06-29-2022 Basophils/100 WBC (Bld) 0.8 % Normal 0.0 - 2.0 % [facility] Basophils/Leukocytes Auto (Bld) [Pure # fraction] 0.0 E9/L Normal 0.0 - 0.2 E9/L [facility] Eosinophils/100 WBC (Bld) 3.6 % Normal 0.0 - 8.0 % [facility] Eosinophils/Leukocytes Auto (Bld) [Pure # fraction] 0.2 E9/L Normal 0.0 - 0.5 E9/L [facility] Lymphocytes/100 WBC (Bld) 17.3 % Normal 14.0 - 50.0 % [facility] Lymphocytes/Leukocytes Auto (Bld) [Pure # fraction] 0.9 E9/L Low 1.0 - 4.0 E9/L [facility] Monocytes/100 WBC (Bld) 9.6 % Normal 4.0 - 14.0 % [facility] Monocytes/Leukocytes Auto (Bld) [Pure # fraction] 0.5 E9/L Normal 0.2 - 1.0 E9/L [facility] Neutrophils/100 WBC (Bld) 68.7 % Normal 36.0 - 75.0 % [facility] Neutrophils/Leukocytes Auto (Bld) [Pure # fraction] 3.7 E9/L Normal 2.0 - 7.5 E9/L [facility] HEMATOLOGYOrdered By: Racquel reed on 06-29-2022 Erythrocyte distribution width (RBC) [Ratio] 15.5 % High 10.9 - 14.2 % [facility] Hematocrit (Bld) [Volume fraction] 34.8 % Normal 34.0 - 46.0 % [facility] Hemoglobin (Bld) [Mass/Vol] 11.6 g/dL Low 12.0 - 16.0 gm/dL [facility] MCH (RBC) [Entitic mass] 29.2 pg Normal 27.0 - 34.0 pg [facility] MCHC (RBC) [Mass/Vol] 33.2 g/dL Normal 31.4 - 36.0 gm/dL [facility] MCV (RBC) [Entitic vol] 87.7 fL Normal 80.0 - 100.0 fL [facility] Platelet mean volume (Bld) [Entitic vol] 7.3 fL Normal 6.4 - 10.8 fL [facility] Platelets (Bld) [#/Vol] 209.0 E9/L Normal 150.0 - 500.0 E9/L [facility] RBC (Bld) [#/Vol] 4.0 E12/L Low 4.3 - 5.9 E12/L [facility] Reticulocytes/100 RBC (Bld) 1.2 % Normal 0.5 - 1.5 % [facility] WBC corrected for nucl RBC Auto (Bld) [#/Vol] 5.4 E9/L Normal 4.0 - 11.0 E9/L [facility] CHEMISTRYOrdered By: [employer] SYSTEM on 06-28-2022 Anion gap [Moles/Vol] 8 mmol/L Normal 6 - 16 mEq/L [facility] Remisol Calcium [Mass/Vol] 8.9 mg/dL Normal 8.9 - 11. 1 mg/dL [facility] Remisol Chloride [Moles/Vol] 100 mmol/L Low 101 - 1 11 mmol/L [facility] Remisol CO2 [Moles/Vol] 31 mmol/L Normal 21 - 31 mmol/L [facility] Remisol Creatinine [Mass/Vol] 0.8 mg/dL Normal 0.5 - 1.3 mg/dL [facility] Rem[facility] GFR/1.73 sq M.predicted among blacks MDRD (S/P/Bld) [Vol rate/Area] mL/min/1.73 m2 Normal >=59mL/min /1.73 m2 [facility] Chem S GFR/1.73 sq M.predicted among non-blacks MDRD (S/P/Bld) [Vol rate/Area] mL/min/1.73 m2 Normal >=59mL/min /1.73 m2 [facility] Chem S Glucose [Mass/Vol] 94 mg/dL Normal 55 - 199 mg/dL [facility] Remisol Sodium [Moles/Vol] 136 mmol/L Normal 135 - 145 mmol/L [facility] Remisol Urea nitrogen [Mass/Vol] 16 mg/dL Normal 5 - 21 mg/dL [facility] Remisol Urea nitrogen/Creatinine [Mass ratio] 20 mg/mg Normal 10 - 20 [facility] Remisol CHEMISTRYOrdered By: Jesse Li on 06-28-2022 Potassium [Moles/Vol] 3.2 mmol/L Low 3.5 - 5.3 mmol/L [facility] Remisol CHEMISTRYOrdered By: [employer] on 06-27-2022 Troponin I.cardiac [Mass/Vol] 7.00 pg/mL Low 10.10 - 27.10 pg/mL [facility] Remisol Troponin I.cardiac [Mass/Vol] 6.50 pg/mL Low 10.10 - 27.10 pg/mL [facility] Remisol Troponin I.cardiac [Mass/Vol] 6.20 pg/mL Low 10.10 - 27.10 pg/mL [facility] Remisol GFR/1.73 sq M.predicted among blacks MDRD (S/P/Bld) [Vol rate/Area] 52 mL/min/1.73 m2 Low >=59mL/min /1.73 m2 [facility] Chem S GFR/1.73 sq M.predicted among non-blacks MDRD (S/P/Bld) [Vol rate/Area] 43 mL/min/1.73 m2 Low >=59mL/min /1.73 m2 [facility] Chem S CHEMISTRYOrdered By: Kyrie Villanueva on 06-27-2022 Anion gap [Moles/Vol] 10 mmol/L Normal 6 - 16 mEq/L [facility] Remisol Calcium [Mass/Vol] 9.1 mg/dL Normal 8.9 - 11. 1 mg/dL [facility] Remisol Chloride [Moles/Vol] 100 mmol/L Low 101 - 1 11 mmol/L [facility] Remisol CO2 [Moles/Vol] 30 mmol/L Normal 21 - 31 mmol/L [facility] Remisol Creatinine [Mass/Vol] 1.2 mg/dL Normal 0.5 - 1.3 mg/dL [facility] Remisol Glucose [Mass/Vol] 86 mg/dL Normal 55 - 199 mg/dL [facility] Remisol Potassium [Moles/Vol] 4.0 mmol/L Normal 3.5 - 5.3 mmol/L [facility] Remisol Sodium [Moles/Vol] 136 mmol/L Normal 135 - 145 mmol/L [facility] Remisol Urea nitrogen [Mass/Vol] 19 mg/dL Normal 5 - 21 mg/dL [facility] Remisol Urea nitrogen/Creatinine [Mass ratio] 16 mg/mg Normal 10 - 20 [facility] Remisol CHEMISTRYOrdered By: Aurea Wick on 06-27-2022 Natriuretic peptide B (Bld) [Mass/Vol] 131 pg/mL High 5 - 80 pg/mL [facility]SS COAGULATIONOrdered By: Neida Begum on 06-27-2022 aPTT Coag (PPP) [Time] 35.3 s Normal 25.1 - 36.5 second(s) [facility] Auto Coag INR Coag (PPP) [Relative time] 1.0 {INR} Invalid Interpretation Code [facility] Auto Coag PT Coag (PPP) [Time] 11.0 s Normal 9.4 - 1 2.5 second(s) [facility] Auto Coag HEMATOLOGYOrdered By: SYSTEM SYSTEM on 06-27-2022 Basophils/100 WBC (Bld) 0.9 % Normal 0.0 - 2.0 % [facility] Basophils/Leukocytes Auto (Bld) [Pure # fraction] 0.0 E9/L Normal 0.0 - 0.2 E9/L [facility] Eosinophils/100 WBC (Bld) 2.3 % Normal 0.0 - 8.0 % [facility] Eosinophils/Leukocytes Auto (Bld) [Pure # fraction] 0.1 E9/L Normal 0.0 - 0.5 E9/L [facility] Lymphocytes/100 WBC (Bld) 14.2 % Normal 14.0 - 50.0 % [facility] Lymphocytes/Leukocytes Auto (Bld) [Pure # fraction] 0.7 E9/L Low 1.0 - 4.0 E9/L [facility] Monocytes/100 WBC (Bld) 9.1 % Normal 4.0 - 14.0 % [facility] Monocytes/Leukocytes Auto (Bld) [Pure # fraction] 0.5 E9/L Normal 0.2 - 1.0 E9/L [facility] Neutrophils/100 WBC (Bld) 73.5 % Normal 36.0 - 75.0 % [facility] Neutrophils/Leukocytes Auto (Bld) [Pure # fraction] 3.9 E9/L Normal 2.0 - 7.5 E9/L [facility] HEMATOLOGYOrdered By: Aurea Wick on 06-27-2022 Erythrocyte distribution width (RBC) [Ratio] 15.8 % High 10.9 - 14.2 % [facility] Hematocrit (Bld) [Volume fraction] 36.2 % Normal 34.0 - 46.0 % [facility] Hemoglobin (Bld) [Mass/Vol] 11.9 g/dL Low 12.0 - 16.0 gm/dL [facility] MCH (RBC) [Entitic mass] 29.0 pg Normal 27.0 - 34.0 pg [facility] MCHC (RBC) [Mass/Vol] 32.7 g/dL Normal 31.4 - 36.0 gm/dL [facility] MCV (RBC) [Entitic vol] 88.6 fL Normal 80.0 - 100.0 fL [facility] Platelet mean volume (Bld) [Entitic vol] 7.5 fL Normal 6.4 - 10.8 fL [facility] Platelets (Bld) [#/Vol] 201.0 E9/L Normal 150.0 - 500.0 E9/L [facility] RBC (Bld) [#/Vol] 4.1 E12/L Low 4.3 - 5.9 E12/L [facility] WBC corrected for nucl RBC Auto (Bld) [#/Vol] 5.3 E9/L Normal 4.0 - 11.0 E9/L [facility] CHEMISTRYOrdered By: SYSTEM SYSTEM on 06-20-2022 25-hydroxyvitamin D3 [Mass/Vol] 41.9 ng/mL Normal 30.0 - 100.0 ng/mL [facility] Rem[facility] Albumin [Mass/Vol] 3.6 g/dL Normal 3.3 - 5.0 gm/dL [facility] Albumin/Globulin [Mass ratio] 1.2 {ratio} Normal 1.1 - 2.2 [facility] ALP [Catalytic activity/Vol] 52 [iU]/d Normal 21 - 98 Int._Unit/ L [facility] Rem[facility] ALT No additional P-5'-P [Catalytic activity/Vol] 19 [iU]/d Normal 6 - 46 Int._Unit/ L [facility] Rem[facility] Anion gap [Moles/Vol] 11 mmol/L Normal 6 - 16 mEq/L [facility] AST [Catalytic activity/Vol] 30 [iU]/d Normal 5 - 43 Int._Unit/ L [facility] Bilirubin [Mass/Vol] 0.7 mg/dL Normal 0.0 - 1 .1 mg/dL [facility] Calcium [Mass/Vol] 9.1 mg/dL Normal 8.9 - 11. 1 mg/dL [facility] Chloride [Moles/Vol] 99 mmol/L Low 101 - 1 11 mmol/L [facility] CO2 [Moles/Vol] 30 mmol/L Normal 21 - 31 mmol/L [facility] Cobalamin (Vitamin B12) [Mass/Vol] 618 pg/mL Normal 50 - 1500 pg/mL [facility] Creatinine [Mass/Vol] 0.9 mg/dL Normal 0.5 - 1.3 mg/dL [facility] GFR/1.73 sq M.predicted among blacks MDRD (S/P/Bld) [Vol rate/Area] mL/min/1.73 m2 Normal >=59mL/min /1.73 m2 [facility] Chem S GFR/1.73 sq M.predicted among non-blacks MDRD (S/P/Bld) [Vol rate/Area] 60 mL/min/1.73 m2 Normal >=59mL/min /1.73 m2 [facility] Chem S Globulin (S) [Mass/Vol] 2.9 g/dL Normal 1.4 - 4.0 gm/dL [facility] Remisol Glucose [Mass/Vol] 85 mg/dL Normal 55 - 199 mg/dL [facility] Iron [Mass/Vol] 105 ug/dL Normal 35 - 153 mcg/dL [facility] Iron binding capacity [Mass/Vol] 331 ug/dL Normal 250 - 400 mcg/dL [facility] Potassium [Moles/Vol] 4.2 mmol/L Normal 3.5 - 5.3 mmol/L [facility] Protein [Mass/Vol] 6.5 g/dL Normal 6.0 - 7.8 gm/dL [facility] Sodium [Moles/Vol] 136 mmol/L Normal 135 - 145 mmol/L [facility] Transferrin [Mass/Vol] 236 mg/dL Normal 200 - 370 mg/dL [facility] TSH Qn 2.01 m[IU]/L Normal 0.34 - 5.60 mcIU/mL [facility] Urea nitrogen [Mass/Vol] 15 mg/dL Normal 5 - 21 mg/dL [facility] Urea nitrogen/Creatinine [Mass ratio] 17 mg/mg Normal 10 - 20 [facility] COAGULATIONOrdered By: Neida Villanueva on 06-20-2022 INR Coag (PPP) [Relative time] 1.0 {INR} Invalid Interpretation Code [facility] Auto Coag PT Coag (PPP) [Time] 11.4 s Normal 9.4 - 1 2.5 second(s) [facility] Auto Coag HEMATOLOGYOrdered By: SYSTEM SYSTEM on 06-20-2022 Basophils/100 WBC (Bld) 0.8 % Normal 0.0 - 2.0 % [facility] Basophils/Leukocytes Auto (Bld) [Pure # fraction] 0.0 E9/L Normal 0.0 - 0.2 E9/L [facility] Eosinophils/100 WBC (Bld) 2.7 % Normal 0.0 - 8.0 % [facility] Eosinophils/Leukocytes Auto (Bld) [Pure # fraction] 0.1 E9/L Normal 0.0 - 0.5 E9/L [facility] Lymphocytes/100 WBC (Bld) 17.3 % Normal 14.0 - 50.0 % [facility] Lymphocytes/Leukocytes Auto (Bld) [Pure # fraction] 0.9 E9/L Low 1.0 - 4.0 E9/L [facility] Monocytes/100 WBC (Bld) 9.7 % Normal 4.0 - 14.0 % [facility] Monocytes/Leukocytes Auto (Bld) [Pure # fraction] 0.5 E9/L Normal 0.2 - 1.0 E9/L [facility] Neutrophils/100 WBC (Bld) 69.5 % Normal 36.0 - 75.0 % [facility] Neutrophils/Leukocytes Auto (Bld) [Pure # fraction] 3.5 E9/L Normal 2.0 - 7.5 E9/L [facility] HEMATOLOGYOrdered By: Delores Hyman on 06-20-2022 Erythrocyte distribution width (RBC) [Ratio] 15.9 % High 10.9 - 14.2 % [facility] Hematocrit (Bld) [Volume fraction] 34.6 % Normal 34.0 - 46.0 % [facility] Hemoglobin (Bld) [Mass/Vol] 11.5 g/dL Low 12.0 - 16.0 gm/dL [facility] MCH (RBC) [Entitic mass] 29.6 pg Normal 27.0 - 34.0 pg [facility] MCHC (RBC) [Mass/Vol] 33.3 g/dL Normal 31.4 - 36.0 gm/dL [facility] MCV (RBC) [Entitic vol] 88.9 fL Normal 80.0 - 100.0 fL [facility] Platelet mean volume (Bld) [Entitic vol] 7.7 fL Normal 6.4 - 10.8 fL [facility] Platelets (Bld) [#/Vol] 217.0 E9/L Normal 150.0 - 500.0 E9/L [facility] RBC (Bld) [#/Vol] 3.9 E12/L Low 4.3 - 5.9 E12/L [facility] WBC corrected for nucl RBC Auto (Bld) [#/Vol] 5.0 E9/L Normal 4.0 - 11.0 E9/L [facility] XR FOOT GENERAL 3V AP/LAT/OB L RIGHTon 05-19-2022 [facility] CHEMISTRYOrdered By: SYSTEM SYSTEM on 03-22-2022 25-hydroxyvitamin D3 [Mass/Vol] 42.1 ng/mL Normal 30.0 - 100.0 ng/mL [facility] Rem[facility] Albumin [Mass/Vol] 3.4 g/dL Normal 3.3 - 5.0 gm/dL [facility] Albumin/Globulin [Mass ratio] 0.9 {ratio} Low 1.1 - 2.2 [facility] ALP [Catalytic activity/Vol] 59 [iU]/d Normal 21 - 98 Int._Unit/ L [facility] ALT No additional P-5'-P [Catalytic activity/Vol] 17 [iU]/d Normal 6 - 46 Int._Unit/ L [facility] Anion gap [Moles/Vol] 12 mmol/L Normal 6 - 16 mEq/L [facility] AST [Catalytic activity/Vol] 23 [iU]/d Normal 5 - 43 Int._Unit/ L [facility] Bilirubin [Mass/Vol] 0.6 mg/dL Normal 0.0 - 1 .1 mg/dL [facility] Calcium [Mass/Vol] 8.8 mg/dL Low 8.9 - 11. 1 mg/dL [facility] Chloride [Moles/Vol] 96 mmol/L Low 101 - 1 11 mmol/L [facility] CO2 [Moles/Vol] 26 mmol/L Normal 21 - 31 mmol/L [facility] Cobalamin (Vitamin B12) [Mass/Vol] 708 pg/mL Normal 50 - 1500 pg/mL [facility] Creatinine [Mass/Vol] 0.9 mg/dL Normal 0.5 - 1.3 mg/dL [facility] GFR/1.73 sq M.predicted among blacks MDRD (S/P/Bld) [Vol rate/Area] mL/min/1.73 m2 Normal >=59mL/min /1.73 m2 [facility] Chem S GFR/1.73 sq M.predicted among non-blacks MDRD (S/P/Bld) [Vol rate/Area] 60 mL/min/1.73 m2 Normal >=59mL/min /1.73 m2 [facility] Chem S Globulin (S) [Mass/Vol] 3.7 g/dL Normal 1.4 - 4.0 gm/dL [facility] Glucose [Mass/Vol] 102 mg/dL Normal 55 - 199 mg/dL [facility] Iron [Mass/Vol] 29 ug/dL Low 35 - 153 mcg/dL [facility] Iron binding capacity [Mass/Vol] 264 ug/dL Normal 250 - 400 mcg/dL [facility] Potassium [Moles/Vol] 4.4 mmol/L Normal 3.5 - 5.3 mmol/L [facility] Protein [Mass/Vol] 7.1 g/dL Normal 6.0 - 7.8 gm/dL [facility] Sodium [Moles/Vol] 130 mmol/L Low 135 - 145 mmol/L [facility] Transferrin [Mass/Vol] 189 mg/dL Low 200 - 370 mg/dL [facility] TSH Qn 1.57 m[IU]/L Normal 0.34 - 5.60 mcIU/mL [facility] Urea nitrogen [Mass/Vol] 16 mg/dL Normal 5 - 21 mg/dL [facility] Urea nitrogen/Creatinine [Mass ratio] 18 mg/mg Normal 10 - 20 [facility] HEMATOLOGYOrdered By: SYSTEM SYSTEM on 03-22-2022 Basophils/100 WBC (Bld) 0.6 % Normal 0.0 - 2.0 % [facility] Basophils/Leukocytes Auto (Bld) [Pure # fraction] 0.1 E9/L Normal 0.0 - 0.2 E9/L [facility] Eosinophils/100 WBC (Bld) 1.5 % Normal 0.0 - 8.0 % [facility] Eosinophils/Leukocytes Auto (Bld) [Pure # fraction] 0.1 E9/L Normal 0.0 - 0.5 E9/L [facility] Lymphocytes/100 WBC (Bld) 5.4 % Low 14.0 - 50.0 % [facility] Lymphocytes/Leukocytes Auto (Bld) [Pure # fraction] 0.5 E9/L Low 1.0 - 4.0 E9/L [facility] Monocytes/100 WBC (Bld) 4.4 % Normal 4.0 - 14.0 % [facility] Monocytes/Leukocytes Auto (Bld) [Pure # fraction] 0.4 E9/L Normal 0.2 - 1.0 E9/L [facility] Neutrophils/100 WBC (Bld) 88.1 % High 36.0 - 75.0 % [facility] Neutrophils/Leukocytes Auto (Bld) [Pure # fraction] 8.4 E9/L High 2.0 - 7.5 E9/L [facility] HEMATOLOGYOrdered By: Aurea Wick on 03-22-2022 Erythrocyte distribution width (RBC) [Ratio] 15.2 % High 10.9 - 14.2 % [facility] Hematocrit (Bld) [Volume fraction] 31.4 % Low 34.0 - 46.0 % [facility] Hemoglobin (Bld) [Mass/Vol] 10.3 g/dL Low 12.0 - 16.0 gm/dL [facility] MCH (RBC) [Entitic mass] 28.8 pg Normal 27.0 - 34.0 pg [facility] MCHC (RBC) [Mass/Vol] 32.7 g/dL Normal 31.4 - 36.0 gm/dL [facility] MCV (RBC) [Entitic vol] 88.1 fL Normal 80.0 - 100.0 fL [facility] Platelet mean volume (Bld) [Entitic vol] 6.9 fL Normal 6.4 - 10.8 fL [facility] Platelets (Bld) [#/Vol] 323.0 E9/L Normal 150.0 - 500.0 E9/L [facility] RBC (Bld) [#/Vol] 3.6 E12/L Low 4.3 - 5.9 E12/L [facility] WBC corrected for nucl RBC Auto (Bld) [#/Vol] 9.5 E9/L Normal 4.0 - 11.0 E9/L [facility] Progress Noteson 02-02-2022 Client Account Assistant Authentication Interface Message Text EMERGENCY TRIAGE, TREAT AND TRANSPORT (ET3) DOCUMENTATION OF TELEHEALTH VISIT Date / Time: 02/02/2022444 Name: Carly Navas : 1940 SSN: (Not on file) EMS Agency: [facility] [x] Verbal consent obtained [] Implied consent - patient with potential emergency medical condition requiring assessment of capacity to refuse treatment and/or transport VITAL SIGNS: see flowsheet documentation Reason for Telehealth Visit: Chief Complaint Patient presents with Palpitations Red Rash Face History of Present Ilness: 81 yo female w/ PMH recent UTI and AMI with 2 stents called EMS for palpitaitons. Started marcobid yesterday for UTI. Since noticed facial rash and palpitaitons. Also tight throat. No prior allergy to this medicaiton Additional pertinent PMHx, SocHx, FamHx: PMH CAD w/ stents Meds macrobid, BP meds Social lives alone Review of Systems: Denies the following: SOB, CP, abd pain, NVD Exam: General: Awake, no distress ENT: normocephalic, atraumatic Pulmonary: No respiratory distress Cardiovascular: Well perfused Neurologic: Oriented to person, place, time and events. Moving all extremities equally. Psychiatric: Appropriate. Good insight and judgement. Medical Decision Makin yo female with CAD and stents recently started macrobid for UTI now having allergy symptoms including rash, palpitaions and tight throat. Took benardyl. Sx improved. Will recommend trx to hospital for allergy vs atypical ACS prescentation w/ her recent hx of AMI and stents, now having HTN and palpitations. Pt in agreement Disposition Supported by Telehealth Assessment: ET3 transport decisions: Transport to hospital EMS Disposition Reported: Same ET3 Encounter Completed by: DO Kristopher Baker [employer] System Tobacco Screening.on Adult depression screening assessment No [facility] [address] 600 DO Work Phone: Fall risk assessment a) No falls within the last year [facility] [address] DO Work Phone: Tobacco use status CPHS b) No [facility] [address] DO Work Phone: CHEMISTRYOrdered By: SYSTEM SYSTEM on 12-20-2021 Anion gap [Moles/Vol] 10 mmol/L Normal 6 - 16 mEq/L [facility] Rem[facility] Calcium [Mass/Vol] 9.5 mg/dL Normal 8.9 - 11. 1 mg/dL [facility] Chloride [Moles/Vol] 105 mmol/L Normal 101 - 1 11 mmol/L [facility] CO2 [Moles/Vol] 26 mmol/L Normal 21 - 31 mmol/L [facility] Creatinine [Mass/Vol] 1.1 mg/dL Normal 0.5 - 1.3 mg/dL [facility] GFR/1.73 sq M.predicted among blacks MDRD (S/P/Bld) [Vol rate/Area] 58 mL/min/1.73 m2 Low >=59mL/min /1.73 m2 [facility] Chem S GFR/1.73 sq M.predicted among non-blacks MDRD (S/P/Bld) [Vol rate/Area] 48 mL/min/1.73 m2 Low >=59mL/min /1.73 m2 [facility] Chem S Glucose [Mass/Vol] 74 mg/dL Normal 55 - 199 mg/dL [facility] Rem[facility] Potassium [Moles/Vol] 4.0 mmol/L Normal 3.5 - 5.3 mmol/L [facility] Sodium [Moles/Vol] 137 mmol/L Normal 135 - 145 mmol/L [facility] Rem[facility] Urea nitrogen [Mass/Vol] 23 mg/dL High 5 - 21 mg/dL [facility] Urea nitrogen/Creatinine [Mass ratio] 21 mg/mg High 10 - 20 [facility] Rem[facility] CHEMISTRYOrdered By: SYSTEM SYSTEM on 12-16-2021 Anion gap [Moles/Vol] 11 mmol/L Normal 6 - 16 mEq/L [facility] Remisol Calcium [Mass/Vol] 9.0 mg/dL Normal 8.9 - 11. 1 mg/dL [facility] Remisol Chloride [Moles/Vol] 104 mmol/L Normal 101 - 1 11 mmol/L [facility] Rem[facility] CO2 [Moles/Vol] 27 mmol/L Normal 21 - 31 mmol/L [facility] Creatinine [Mass/Vol] 1.5 mg/dL High 0.5 - 1.3 mg/dL [facility] Remisol GFR/1.73 sq M.predicted among blacks MDRD (S/P/Bld) [Vol rate/Area] 40 mL/min/1.73 m2 Low >=59mL/min /1.73 m2 [facility] Chem S GFR/1.73 sq M.predicted among non-blacks MDRD (S/P/Bld) [Vol rate/Area] 33 mL/min/1.73 m2 Low >=59mL/min /1.73 m2 [facility] Chem S Glucose [Mass/Vol] 80 mg/dL Normal 55 - 199 mg/dL [facility] Potassium [Moles/Vol] 3.9 mmol/L Normal 3.5 - 5.3 mmol/L [facility] Sodium [Moles/Vol] 138 mmol/L Normal 135 - 145 mmol/L [facility] Urea nitrogen [Mass/Vol] 28 mg/dL High 5 - 21 mg/dL [facility] Remisol Urea nitrogen/Creatinine [Mass ratio] 19 mg/mg Normal 10 - 20 [facility] Remisol CHEMISTRYOrdered By: SYSTEM SYSTEM on 12-15-2021 Troponin I.cardiac [Mass/Vol] 6.70 pg/mL Low 10.10 - 27.10 pg/mL [facility] Magnesium [Mass/Vol] 2.4 mg/dL Normal 1.3 - 2 .4 mg/dL [facility] Phosphate [Mass/Vol] 4.4 mg/dL Normal 1.9 - 4 .6 mg/dL [facility] Remisol Troponin I.cardiac [Mass/Vol] 6.20 pg/mL Low 10.10 - 27.10 pg/mL [facility] Anion gap [Moles/Vol] 11 mmol/L Normal 6 - 16 mEq/L [facility] Calcium [Mass/Vol] 9.4 mg/dL Normal 8.9 - 11. 1 mg/dL [facility] Chloride [Moles/Vol] 104 mmol/L Normal 101 - 1 11 mmol/L [facility] CO2 [Moles/Vol] 27 mmol/L Normal 21 - 31 mmol/L [facility] Creatinine [Mass/Vol] 1.7 mg/dL High 0.5 - 1.3 mg/dL [facility] GFR/1.73 sq M.predicted among blacks MDRD (S/P/Bld) [Vol rate/Area] 35 mL/min/1.73 m2 Low >=59mL/min /1.73 m2 [facility] Chem S GFR/1.73 sq M.predicted among non-blacks MDRD (S/P/Bld) [Vol rate/Area] 29 mL/min/1.73 m2 Low >=59mL/min /1.73 m2 [facility] Chem S Glucose [Mass/Vol] 89 mg/dL Normal 55 - 199 mg/dL [facility] Potassium [Moles/Vol] 4.1 mmol/L Normal 3.5 - 5.3 mmol/L [facility] Sodium [Moles/Vol] 138 mmol/L Normal 135 - 145 mmol/L [facility] Troponin I.cardiac [Mass/Vol] 5.00 pg/mL Low 10.10 - 27.10 pg/mL [facility] Urea nitrogen [Mass/Vol] 33 mg/dL High 5 - 21 mg/dL [facility] Urea nitrogen/Creatinine [Mass ratio] 19 mg/mg Normal 10 - 20 [facility] CHEMISTRYOrdered By: Stephani thompson on 12-15-2021 Natriuretic peptide B (Bld) [Mass/Vol] 97 pg/mL High 5 - 80 pg/mL [facility] HemeManSS COAGULATIONOrdered By: Dayna Jean on 12-15-2021 aPTT Coag (PPP) [Time] 32.6 s Normal 25.1 - 36.5 second(s) [facility] Coag Fibrin D-dimer FEU (PPP) [Mass/Vol] 1687 ng/mL FEU Invalid Interpretation Code 215 - 500 ng/mL FEU [facility] Auto Coag Comment on above: Result Comment: Resu lts Called To Valerie Cruz/ED By BUCK And Read Back For Confirmation On 12/15/2021 13:29:10 EDT Results Verified By Repeat Analysis INR Coag (PPP) [Relative time] 0.9 {INR} Invalid Interpretation Code [facility] Auto Coag PT Coag (PPP) [Time] 10.3 s Normal 9.4 - 1 2.5 second(s) [facility] Auto Coag HEMATOLOGYOrdered By: SYSTEM SYSTEM on 12-15-2021 Basophils/100 WBC (Bld) 0.8 % Normal 0.0 - 2.0 % [facility] HemeAutoSS Basophils/Leukocytes Auto (Bld) [Pure # fraction] 0.1 E9/L Normal 0.0 - 0.2 E9/L [facility] HemeAutoSS Eosinophils/100 WBC (Bld) 2.6 % Normal 0.0 - 8.0 % [facility] HemeAutoSS Eosinophils/Leukocytes Auto (Bld) [Pure # fraction] 0.2 E9/L Normal 0.0 - 0.5 E9/L [facility] HemeAutoSS Lymphocytes/100 WBC (Bld) 11.7 % Low 14.0 - 50.0 % [facility] HemeAutoSS Lymphocytes/Leukocytes Auto (Bld) [Pure # fraction] 0.8 E9/L Low 1.0 - 4.0 E9/L [facility] HemeAutoSS Monocytes/100 WBC (Bld) 7.5 % Normal 4.0 - 14.0 % [facility] HemeAutoSS Monocytes/Leukocytes Auto (Bld) [Pure # fraction] 0.5 E9/L Normal 0.2 - 1.0 E9/L [facility] HemeAutoSS Neutrophils/100 WBC (Bld) 77.4 % High 36.0 - 75.0 % [facility] Neutrophils/Leukocytes Auto (Bld) [Pure # fraction] 5.2 E9/L Normal 2.0 - 7.5 E9/L [facility] HEMATOLOGYOrdered By: Audrey Begum on 12-15-2021 Erythrocyte distribution width (RBC) [Ratio] 15.5 % High 10.9 - 14.2 % [facility] Hematocrit (Bld) [Volume fraction] 34.9 % Normal 34.0 - 46.0 % [facility] Hemoglobin (Bld) [Mass/Vol] 11.5 g/dL Low 12.0 - 16.0 gm/dL [facility] MCH (RBC) [Entitic mass] 28.5 pg Normal 27.0 - 34.0 pg [facility] MCHC (RBC) [Mass/Vol] 32.8 g/dL Normal 31.4 - 36.0 gm/dL [facility] MCV (RBC) [Entitic vol] 86.8 fL Normal 80.0 - 100.0 fL [facility] Platelet mean volume (Bld) [Entitic vol] 7.5 fL Normal 6.4 - 10.8 fL [facility] Platelets (Bld) [#/Vol] 206.0 E9/L Normal 150.0 - 500.0 E9/L [facility] RBC (Bld) [#/Vol] 4.0 E12/L Low 4.3 - 5.9 E12/L [facility] WBC corrected for nucl RBC Auto (Bld) [#/Vol] 6.7 E9/L Normal 4.0 - 11.0 E9/L [facility] URINALYSISOrdered By: Brandon Jean on 12-15-2021 Bilirubin Ql (U) Negative (12/15/21 12:25 PM) Normal Negative [facility] Clarity (U) Clear (12/15/21 12:25 PM) Normal Clear [facility] Color (U) Yellow (12/15/21 12:25 PM) Normal Yellow [facility] Epithelial cells.squamous LM.HPF (Urine sed) [#/Area] 0-2 /HPF Normal 0-2/HPF [facility] Glucose Test strip (U) [Mass/Vol] Negative (12/15/21 12:25 PM) Normal Negative [facility] Hemoglobin Ql (U) Negative (12/15/21 12:25 PM) Normal Negative [facility] Ketones (U) [Mass/Vol] Negative (12/15/21 12:25 PM) Normal Negative [facility] SS Amistad.plasma/Amistad .RBC (Bld) [Mass ratio] 0-3 /HPF Normal 0-3/HPF [facility] Nitrite Ql (U) Negative (12/15/21 12:25 PM) Normal Negative [facility] pH (U) 7.0 *NA* (12/15/21 12:25 PM) Invalid Interpretation Code 5.0 - 9.0 [facility] Protein (U) [Mass/Vol] Negative (12/15/21 12:25 PM) Normal Negative [facility] SS Specific gravity (U) [Rel density] 1.010 *NA* (12/15/21 12:25 PM) Invalid Interpretation Code 1.005 - 1.030 [facility] UA Spec Desc Clean Catch (12/15/21 12:25 PM) Normal [facility] Auto SS Urobilinogen Qn (U) [id number] {Lexie'U}/dL Normal 0.0 - 1.0 EU/dL [facility] Auto SS WBC Auto Ql (U) Negative (12/15/21 12:25 PM) Normal Negative [facility] Auto SS WBC LM.HPF (Urine sed) [#/Area] 0-5 /HPF Normal 0-5/HPF [facility] Auto SS CHEMISTRYOrdered By: SYSTEM SYSTEM on 12-12-2021 Anion gap [Moles/Vol] 13 mmol/L Normal 6 - 16 mEq/L [facility] Calcium [Mass/Vol] 9.0 mg/dL Normal 8.9 - 11. 1 mg/dL [facility] Chloride [Moles/Vol] 105 mmol/L Normal 101 - 1 11 mmol/L [facility] CO2 [Moles/Vol] 25 mmol/L Normal 21 - 31 mmol/L [facility] Creatinine [Mass/Vol] 1.0 mg/dL Normal 0.5 - 1.3 mg/dL [facility] GFR/1.73 sq M.predicted among blacks MDRD (S/P/Bld) [Vol rate/Area] mL/min/1.73 m2 Normal >=59mL/min /1.73 m2 [facility] S GFR/1.73 sq M.predicted among non-blacks MDRD (S/P/Bld) [Vol rate/Area] 53 mL/min/1.73 m2 Low >=59mL/min /1.73 m2 [facility] Chem S Glucose [Mass/Vol] 91 mg/dL Normal 55 - 199 mg/dL [facility] Magnesium [Mass/Vol] 1.8 mg/dL Normal 1.3 - 2 .4 mg/dL [facility] Potassium [Moles/Vol] 3.5 mmol/L Normal 3.5 - 5.3 mmol/L [facility] Sodium [Moles/Vol] 139 mmol/L Normal 135 - 145 mmol/L [facility] TSH Qn 3.00 m[IU]/L Normal 0.34 - 5.60 mcIU/mL [facility] Urea nitrogen [Mass/Vol] 17 mg/dL Normal 5 - 21 mg/dL [facility] Urea nitrogen/Creatinine [Mass ratio] 17 mg/mg Normal 10 - 20 [facility] Troponin I.cardiac [Mass/Vol] 6.70 pg/mL Low 10.10 - 27.10 pg/mL [facility] Troponin I.cardiac [Mass/Vol] 6.30 pg/mL Low 10.10 - 27.10 pg/mL [facility] CHEMISTRYOrdered By: Kyrie Villanueva on 12-12-2021 Natriuretic peptide B (Bld) [Mass/Vol] 436 pg/mL High 5 - 80 pg/mL [facility] HEMATOLOGYOrdered By: SYSTEM SYSTEM on 12-12-2021 Basophils/100 WBC (Bld) 0.6 % Normal 0.0 - 2.0 % [facility] Basophils/Leukocytes Auto (Bld) [Pure # fraction] 0.0 E9/L Normal 0.0 - 0.2 E9/L [facility] Eosinophils/100 WBC (Bld) 1.6 % Normal 0.0 - 8.0 % [facility] Eosinophils/Leukocytes Auto (Bld) [Pure # fraction] 0.1 E9/L Normal 0.0 - 0.5 E9/L [facility] Lymphocytes/100 WBC (Bld) 12.6 % Low 14.0 - 50.0 % [facility] Lymphocytes/Leukocytes Auto (Bld) [Pure # fraction] 0.9 E9/L Low 1.0 - 4.0 E9/L [facility] Monocytes/100 WBC (Bld) 6.4 % Normal 4.0 - 14.0 % [facility] Monocytes/Leukocytes Auto (Bld) [Pure # fraction] 0.4 E9/L Normal 0.2 - 1.0 E9/L [facility] Neutrophils/100 WBC (Bld) 78.8 % High 36.0 - 75.0 % [facility] Neutrophils/Leukocytes Auto (Bld) [Pure # fraction] 5.4 E9/L Normal 2.0 - 7.5 E9/L [facility] HEMATOLOGYOrdered By: Audrey Villanueva on 12-12-2021 Erythrocyte distribution width (RBC) [Ratio] 15.6 % High 10.9 - 14.2 % [facility] Hematocrit (Bld) [Volume fraction] 32.0 % Low 34.0 - 46.0 % [facility] Hemoglobin (Bld) [Mass/Vol] 10.5 g/dL Low 12.0 - 16.0 gm/dL [facility] MCH (RBC) [Entitic mass] 28.5 pg Normal 27.0 - 34.0 pg [facility] MCHC (RBC) [Mass/Vol] 32.8 g/dL Normal 31.4 - 36.0 gm/dL [facility] MCV (RBC) [Entitic vol] 86.8 fL Normal 80.0 - 100.0 fL [facility] Platelet mean volume (Bld) [Entitic vol] 7.6 fL Normal 6.4 - 10.8 fL [facility] Platelets (Bld) [#/Vol] 208.0 E9/L Normal 150.0 - 500.0 E9/L [facility] RBC (Bld) [#/Vol] 3.7 E12/L Low 4.3 - 5.9 E12/L [facility] WBC corrected for nucl RBC Auto (Bld) [#/Vol] 6.8 E9/L Normal 4.0 - 11.0 E9/L [facility] CHEMISTRYOrdered By: SYSTEM SYSTEM on 12-11-2021 Troponin I.cardiac [Mass/Vol] 5.60 pg/mL Low 10.10 - 27.10 pg/mL [facility] Albumin [Mass/Vol] 3.6 g/dL Normal 3.3 - 5.0 gm/dL [facility] Albumin/Globulin [Mass ratio] 1.1 {ratio} Normal 1.1 - 2.2 [facility] ALP [Catalytic activity/Vol] 56 [iU]/d Normal 21 - 98 Int._Unit/ L [facility] ALT No additional P-5'-P [Catalytic activity/Vol] 15 [iU]/d Normal 6 - 46 Int._Unit/ L [facility] Anion gap [Moles/Vol] 11 mmol/L Normal 6 - 16 mEq/L [facility] AST [Catalytic activity/Vol] 20 [iU]/d Normal 5 - 43 Int._Unit/ L [facility] Bilirubin [Mass/Vol] 0.4 mg/dL Normal 0.0 - 1 .1 mg/dL [facility] Bilirubin.direct [Mass/Vol] mg/dL Normal 0.1 - 0.4 mg/dL [facility] Bilirubin.indirect [Mass or moles/Vol] Unable to Calculate mg/dL Invalid Interpretation Code 0.1 - 0.9 mg/dL [facility] Calcium [Mass/Vol] 8.8 mg/dL Low 8.9 - 11. 1 mg/dL [facility] Chloride [Moles/Vol] 104 mmol/L Normal 101 - 1 11 mmol/L [facility] CO2 [Moles/Vol] 27 mmol/L Normal 21 - 31 mmol/L [facility] Creatinine [Mass/Vol] 1.0 mg/dL Normal 0.5 - 1.3 mg/dL [facility] GFR/1.73 sq M.predicted among blacks MDRD (S/P/Bld) [Vol rate/Area] mL/min/1.73 m2 Normal >=59mL/min /1.73 m2 [facility] Chem S GFR/1.73 sq M.predicted among non-blacks MDRD (S/P/Bld) [Vol rate/Area] 53 mL/min/1.73 m2 Low >=59mL/min /1.73 m2 [facility] S Globulin (S) [Mass/Vol] 3.3 g/dL Normal 1.4 - 4.0 gm/dL [facility] Glucose [Mass/Vol] 91 mg/dL Normal 55 - 199 mg/dL [facility] Potassium [Moles/Vol] 3.6 mmol/L Normal 3.5 - 5.3 mmol/L [facility] Protein [Mass/Vol] 6.9 g/dL Normal 6.0 - 7.8 gm/dL [facility] Sodium [Moles/Vol] 138 mmol/L Normal 135 - 145 mmol/L [facility] Urea nitrogen [Mass/Vol] 20 mg/dL Normal 5 - 21 mg/dL [facility] Urea nitrogen/Creatinine [Mass ratio] 20 mg/mg Normal 10 - 20 [facility] COAGULATIONOrdered By: Miranda Mejias on 12-11-2021 aPTT Coag (PPP) [Time] 29.6 s Normal 25.1 - 36.5 second(s) [facility] INR Coag (PPP) [Relative time] 1.0 {INR} Invalid Interpretation Code [facility] PT Coag (PPP) [Time] 10.7 s Normal 9.4 - 1 2.5 second(s) [facility] HEMATOLOGYOrdered By: SYSTEM SYSTEM on 12-11-2021 Basophils/100 WBC (Bld) 0.4 % Normal 0.0 - 2.0 % [facility] Basophils/Leukocytes Auto (Bld) [Pure # fraction] 0.0 E9/L Normal 0.0 - 0.2 E9/L [facility] Eosinophils/100 WBC (Bld) 2.4 % Normal 0.0 - 8.0 % [facility] Eosinophils/Leukocytes Auto (Bld) [Pure # fraction] 0.1 E9/L Normal 0.0 - 0.5 E9/L [facility] Lymphocytes/100 WBC (Bld) 14.9 % Normal 14.0 - 50.0 % [facility] Lymphocytes/Leukocytes Auto (Bld) [Pure # fraction] 0.8 E9/L Low 1.0 - 4.0 E9/L [facility] Monocytes/100 WBC (Bld) 6.4 % Normal 4.0 - 14.0 % [facility] Monocytes/Leukocytes Auto (Bld) [Pure # fraction] 0.4 E9/L Normal 0.2 - 1.0 E9/L [facility] Neutrophils/100 WBC (Bld) 75.9 % High 36.0 - 75.0 % [facility] Neutrophils/Leukocytes Auto (Bld) [Pure # fraction] 4.3 E9/L Normal 2.0 - 7.5 E9/L [facility] HEMATOLOGYOrdered By: Paul Mendez on 12-11-2021 Erythrocyte distribution width (RBC) [Ratio] 15.4 % High 10.9 - 14.2 % [facility] Hematocrit (Bld) [Volume fraction] 37.0 % Normal 34.0 - 46.0 % [facility] Hemoglobin (Bld) [Mass/Vol] 12.1 g/dL Normal 12.0 - 16.0 gm/dL [facility] MCH (RBC) [Entitic mass] 28.6 pg Normal 27.0 - 34.0 pg [facility] MCHC (RBC) [Mass/Vol] 32.7 g/dL Normal 31.4 - 36.0 gm/dL [facility] MCV (RBC) [Entitic vol] 87.4 fL Normal 80.0 - 100.0 fL [facility] Platelet mean volume (Bld) [Entitic vol] 7.4 fL Normal 6.4 - 10.8 fL [facility] Platelets (Bld) [#/Vol] 182.0 E9/L Normal 150.0 - 500.0 E9/L [facility] RBC (Bld) [#/Vol] 4.2 E12/L Low 4.3 - 5.9 E12/L [facility] WBC corrected for nucl RBC Auto (Bld) [#/Vol] 5.7 E9/L Normal 4.0 - 11.0 E9/L [facility] CHEMISTRYOrdered By: SYSTEM SYSTEM on 12-02-2021 Anion gap [Moles/Vol] 11 mmol/L Normal 6 - 16 mEq/L [facility] Calcium [Mass/Vol] 8.5 mg/dL Low 8.9 - 11. 1 mg/dL [facility] Chloride [Moles/Vol] 102 mmol/L Normal 101 - 1 11 mmol/L [facility] CO2 [Moles/Vol] 24 mmol/L Normal 21 - 31 mmol/L [facility] Creatinine [Mass/Vol] 0.7 mg/dL Normal 0.5 - 1.3 mg/dL [facility] GFR/1.73 sq M.predicted among blacks MDRD (S/P/Bld) [Vol rate/Area] mL/min/1.73 m2 Normal >=59mL/min /1.73 m2 [facility] S GFR/1.73 sq M.predicted among non-blacks MDRD (S/P/Bld) [Vol rate/Area] mL/min/1.73 m2 Normal >=59mL/min /1.73 m2 [facility] Chem S Glucose [Mass/Vol] 83 mg/dL Normal 55 - 199 mg/dL [facility] Potassium [Moles/Vol] 4.3 mmol/L Normal 3.5 - 5.3 mmol/L [facility] Sodium [Moles/Vol] 133 mmol/L Low 135 - 145 mmol/L [facility] Urea nitrogen [Mass/Vol] 21 mg/dL Normal 5 - 21 mg/dL [facility] Urea nitrogen/Creatinine [Mass ratio] 30 mg/mg High 10 - 20 [facility] CHEMISTRYOrdered By: SYSTEM SYSTEM on 12-01-2021 Anion gap [Moles/Vol] 13 mmol/L Normal 6 - 16 mEq/L [facility] Calcium [Mass/Vol] 8.4 mg/dL Low 8.9 - 11. 1 mg/dL [facility] Chloride [Moles/Vol] 98 mmol/L Low 101 - 1 11 mmol/L [facility] CO2 [Moles/Vol] 23 mmol/L Normal 21 - 31 mmol/L [facility] Cobalamin (Vitamin B12) [Mass/Vol] 469 pg/mL Normal 50 - 1500 pg/mL [facility] Creatinine [Mass/Vol] 0.9 mg/dL Normal 0.5 - 1.3 mg/dL [facility] Ferritin [Mass/Vol] 60 ng/mL Normal 11 - 307 ng/mL [facility] Folate [Mass/Vol] ng/mL Normal >=6.7ng/mL [facility] misol GFR/1.73 sq M.predicted among blacks MDRD (S/P/Bld) [Vol rate/Area] mL/min/1.73 m2 Normal >=59mL/min /1.73 m2 [facility] Chem S GFR/1.73 sq M.predicted among non-blacks MDRD (S/P/Bld) [Vol rate/Area] 60 mL/min/1.73 m2 Normal >=59mL/min /1.73 m2 [facility] Glucose [Mass/Vol] 82 mg/dL Normal 55 - 199 mg/dL [facility] Iron [Mass/Vol] 37 ug/dL Normal 35 - 153 mcg/dL [facility] Iron binding capacity [Mass/Vol] 285 ug/dL Normal 250 - 400 mcg/dL [facility] Iron saturation [Mass fraction] 13 % Low 20 - 50 % [facility] Magnesium [Mass/Vol] 1.8 mg/dL Normal 1.3 - 2 .4 mg/dL [facility] Potassium [Moles/Vol] 3.5 mmol/L Normal 3.5 - 5.3 mmol/L [facility] Sodium [Moles/Vol] 130 mmol/L Low 135 - 145 mmol/L [facility] Transferrin [Mass/Vol] 204 mg/dL Normal 200 - 370 mg/dL [facility] Troponin I.cardiac [Mass/Vol] 7.90 pg/mL Low 10.10 - 27.10 pg/mL [facility] TSH Qn 4.80 m[IU]/L Normal 0.34 - 5.60 mcIU/mL [facility] Urea nitrogen [Mass/Vol] 19 mg/dL Normal 5 - 21 mg/dL [facility] Urea nitrogen/Creatinine [Mass ratio] 21 mg/mg High 10 - 20 [facility] Troponin I.cardiac [Mass/Vol] 6.80 pg/mL Low 10.10 - 27.10 pg/mL [facility] Radiologyon 12-01-2021 US Carotid arteries - bilateral Normal -[facility] 600 DO Work Phone: CHEMISTRYOrdered By: SYSTEM SYSTEM on 11-30-2021 Troponin I.cardiac [Mass/Vol] 7.00 pg/mL Low 10.10 - 27.10 pg/mL [facility] Anion gap [Moles/Vol] 13 mmol/L Normal 6 - 16 mEq/L [facility] Calcium [Mass/Vol] 8.9 mg/dL Normal 8.9 - 11. 1 mg/dL [facility] Chloride [Moles/Vol] 97 mmol/L Low 101 - 1 11 mmol/L [facility] CO2 [Moles/Vol] 24 mmol/L Normal 21 - 31 mmol/L [facility] Creatinine [Mass/Vol] 1.0 mg/dL Normal 0.5 - 1.3 mg/dL [facility] GFR/1.73 sq M.predicted among blacks MDRD (S/P/Bld) [Vol rate/Area] mL/min/1.73 m2 Normal >=59mL/min /1.73 m2 [facility] GFR/1.73 sq M.predicted among non-blacks MDRD (S/P/Bld) [Vol rate/Area] 53 mL/min/1.73 m2 Low >=59mL/min /1.73 m2 [facility] S Glucose [Mass/Vol] 111 mg/dL Normal 55 - 199 mg/dL [facility] Potassium [Moles/Vol] 3.8 mmol/L Normal 3.5 - 5.3 mmol/L [facility] Sodium [Moles/Vol] 130 mmol/L Low 135 - 145 mmol/L [facility] Urea nitrogen [Mass/Vol] 22 mg/dL High 5 - 21 mg/dL [facility] Urea nitrogen/Creatinine [Mass ratio] 22 mg/mg High 10 - 20 [facility] HEMATOLOGYOrdered By: SYSTEM SYSTEM on 11-30-2021 Basophils/100 WBC (Bld) 0.4 % Normal 0.0 - 2.0 % [facility] Basophils/Leukocytes Auto (Bld) [Pure # fraction] 0.0 E9/L Normal 0.0 - 0.2 E9/L [facility] Eosinophils/100 WBC (Bld) 2.8 % Normal 0.0 - 8.0 % [facility] Eosinophils/Leukocytes Auto (Bld) [Pure # fraction] 0.2 E9/L Normal 0.0 - 0.5 E9/L [facility] Lymphocytes/100 WBC (Bld) 13.7 % Low 14.0 - 50.0 % [facility] Lymphocytes/Leukocytes Auto (Bld) [Pure # fraction] 1.2 E9/L Normal 1.0 - 4.0 E9/L [facility] Monocytes/100 WBC (Bld) 7.8 % Normal 4.0 - 14.0 % [facility] Monocytes/Leukocytes Auto (Bld) [Pure # fraction] 0.7 E9/L Normal 0.2 - 1.0 E9/L [facility] Neutrophils/100 WBC (Bld) 75.3 % High 36.0 - 75.0 % [facility] Neutrophils/Leukocytes Auto (Bld) [Pure # fraction] 6.5 E9/L Normal 2.0 - 7.5 E9/L [facility] HEMATOLOGYOrdered By: Alliso n Lakeisha on 11-30-2021 Erythrocyte distribution width (RBC) [Ratio] 15.2 % High 10.9 - 14.2 % [facility] Hematocrit (Bld) [Volume fraction] 32.0 % Low 34.0 - 46.0 % [facility] Hemoglobin (Bld) [Mass/Vol] 10.9 g/dL Low 12.0 - 16.0 gm/dL [facility] MCH (RBC) [Entitic mass] 29.2 pg Normal 27.0 - 34.0 pg [facility] MCHC (RBC) [Mass/Vol] 34.2 g/dL Normal 31.4 - 36.0 gm/dL [facility] MCV (RBC) [Entitic vol] 85.4 fL Normal 80.0 - 100.0 fL [facility] Platelet mean volume (Bld) [Entitic vol] 7.4 fL Normal 6.4 - 10.8 fL [facility] Platelets (Bld) [#/Vol] 233.0 E9/L Normal 150.0 - 500.0 E9/L [facility] RBC (Bld) [#/Vol] 3.8 E12/L Low 4.3 - 5.9 E12/L [facility] WBC corrected for nucl RBC Auto (Bld) [#/Vol] 8.6 E9/L Normal 4.0 - 11.0 E9/L [facility] CHEMISTRYOrdered By: SYSTEM SYSTEM on 11-25-2021 Anion gap [Moles/Vol] 8 mmol/L Normal 6 - 16 mEq/L [facility] Calcium [Mass/Vol] 8.8 mg/dL Low 8.9 - 11. 1 mg/dL [facility] Chloride [Moles/Vol] 103 mmol/L Normal 101 - 1 11 mmol/L [facility] CO2 [Moles/Vol] 28 mmol/L Normal 21 - 31 mmol/L [facility] Creatinine [Mass/Vol] 0.9 mg/dL Normal 0.5 - 1.3 mg/dL [facility] GFR/1.73 sq M.predicted among blacks MDRD (S/P/Bld) [Vol rate/Area] mL/min/1.73 m2 Normal >=59mL/min /1.73 m2 [facility] S GFR/1.73 sq M.predicted among non-blacks MDRD (S/P/Bld) [Vol rate/Area] 60 mL/min/1.73 m2 Normal >=59mL/min /1.73 m2 [facility] S Glucose [Mass/Vol] 93 mg/dL Normal 55 - 199 mg/dL [facility] Magnesium [Mass/Vol] 1.9 mg/dL Normal 1.3 - 2 .4 mg/dL [facility] Potassium [Moles/Vol] 3.8 mmol/L Normal 3.5 - 5.3 mmol/L [facility] Sodium [Moles/Vol] 135 mmol/L Normal 135 - 145 mmol/L [facility] Troponin I.cardiac [Mass/Vol] 100.60 pg/mL Invalid Interpretation Code 10.10 - 27.10 pg/mL [facility] Chem S Comment on above: Result Comment: Resu lts Called To Edil/Ivone Sharma By And Read Back For Confirmation On 11/25/2021 07:52:00 EDT Results Verified By Repeat Analysis Urea nitrogen [Mass/Vol] 21 mg/dL Normal 5 - 21 mg/dL [facility] Remisol Urea nitrogen/Creatinine [Mass ratio] 23 mg/mg High 10 - 20 [facility] HEMATOLOGYOrdered By: Leonora Martínez on 11-25-2021 Erythrocyte distribution width (RBC) [Ratio] 15.2 % High 10.9 - 14.2 % [facility] Hematocrit (Bld) [Volume fraction] 34.5 % Normal 34.0 - 46.0 % [facility] Hemoglobin (Bld) [Mass/Vol] 11.7 g/dL Low 12.0 - 16.0 gm/dL [facility] MCH (RBC) [Entitic mass] 29.0 pg Normal 27.0 - 34.0 pg [facility] MCHC (RBC) [Mass/Vol] 33.9 g/dL Normal 31.4 - 36.0 gm/dL [facility] MCV (RBC) [Entitic vol] 85.5 fL Normal 80.0 - 100.0 fL [facility] Platelet mean volume (Bld) [Entitic vol] 7.1 fL Normal 6.4 - 10.8 fL [facility] Platelets (Bld) [#/Vol] 193.0 E9/L Normal 150.0 - 500.0 E9/L [facility] RBC (Bld) [#/Vol] 4.0 E12/L Low 4.3 - 5.9 E12/L [facility] WBC corrected for nucl RBC Auto (Bld) [#/Vol] 7.0 E9/L Normal 4.0 - 11.0 E9/L [facility] CHEMISTRYOrdered By: SYSTEM SYSTEM on 11-24-2021 Cholesterol [Mass/Vol] 182 mg/dL Normal 120 - 200 mg/dL [facility] Cholesterol in HDL [Mass/Vol] 42 mg/dL Invalid Interpretation Code [facility] Cholesterol in LDL [Mass/Vol] 124 mg/dL Normal <=129mg/dL [facility] Cholesterol in VLDL [Mass/Vol] 14 mg/dL Normal 7 - 40 mg/dL [facility] Triglyceride [Mass/Vol] 70 mg/dL Normal <=149mg/dL [facility] CHEMISTRYOrdered By: SYSTEM SYSTEM on 11-23-2021 Troponin I.cardiac [Mass/Vol] 83.00 pg/mL Invalid Interpretation Code 10.10 - 27.10 pg/mL [facility] Comment on above: Result Comment: Crit ical Result [id number] Called to SUDEEP FISHMAN at by DAINA MEJIAS and read back for confirmation at 11/23/2021 18:44:29 Troponin I.cardiac [Mass/Vol] 71.50 pg/mL Invalid Interpretation Code 10.10 - 27.10 pg/mL [facility] Comment on above: Result Comment: Crit ical Result [id number] Called to SHUBHAM NEWELL at by DAINA MEJIAS and read back for confirmation at 11/23/2021 15:24:01 Anion gap [Moles/Vol] 14 mmol/L Normal 6 - 16 mEq/L [facility] Calcium [Mass/Vol] 9.5 mg/dL Normal 8.9 - 11. 1 mg/dL [facility] Chloride [Moles/Vol] 96 mmol/L Low 101 - 1 11 mmol/L [facility] CO2 [Moles/Vol] 27 mmol/L Normal 21 - 31 mmol/L [facility] Creatinine [Mass/Vol] 1.1 mg/dL Normal 0.5 - 1.3 mg/dL [facility] GFR/1.73 sq M.predicted among blacks MDRD (S/P/Bld) [Vol rate/Area] 58 mL/min/1.73 m2 Low >=59mL/min /1.73 m2 [facility] Chem S GFR/1.73 sq M.predicted among non-blacks MDRD (S/P/Bld) [Vol rate/Area] 48 mL/min/1.73 m2 Low >=59mL/min /1.73 m2 [facility] Chem S Glucose [Mass/Vol] 89 mg/dL Normal 55 - 199 mg/dL [facility] Potassium [Moles/Vol] 3.6 mmol/L Normal 3.5 - 5.3 mmol/L [facility] Sodium [Moles/Vol] 133 mmol/L Low 135 - 145 mmol/L [facility] Urea nitrogen [Mass/Vol] 23 mg/dL High 5 - 21 mg/dL [facility] Urea nitrogen/Creatinine [Mass ratio] 21 mg/mg High 10 - 20 [facility] COAGULATIONOrdered By: Cam Martínez on 11-23-2021 aPTT Coag (PPP) [Time] 35.8 s Normal 25.1 - 36.5 second(s) [facility] Co[facility] INR Coag (PPP) [Relative time] 0.9 {INR} Invalid Interpretation Code [facility] PT Coag (PPP) [Time] 10.1 s Normal 9.4 - 1 2.5 second(s) [facility] HEMATOLOGYOrdered By: SYSTEM SYSTEM on 11-23-2021 Basophils/100 WBC (Bld) 0.9 % Normal 0.0 - 2.0 % [facility] Basophils/Leukocytes Auto (Bld) [Pure # fraction] 0.1 E9/L Normal 0.0 - 0.2 E9/L [facility] Eosinophils/100 WBC (Bld) 3.0 % Normal 0.0 - 8.0 % [facility] Eosinophils/Leukocytes Auto (Bld) [Pure # fraction] 0.2 E9/L Normal 0.0 - 0.5 E9/L [facility] Lymphocytes/100 WBC (Bld) 17.5 % Normal 14.0 - 50.0 % [facility] Lymphocytes/Leukocytes Auto (Bld) [Pure # fraction] 1.0 E9/L Normal 1.0 - 4.0 E9/L [facility] Monocytes/100 WBC (Bld) 6.9 % Normal 4.0 - 14.0 % [facility] Monocytes/Leukocytes Auto (Bld) [Pure # fraction] 0.4 E9/L Normal 0.2 - 1.0 E9/L [facility] Neutrophils/100 WBC (Bld) 71.7 % Normal 36.0 - 75.0 % [facility] Neutrophils/Leukocytes Auto (Bld) [Pure # fraction] 4.1 E9/L Normal 2.0 - 7.5 E9/L [facility] HEMATOLOGYOrdered By: Aurea Castro on 11-23-2021 Erythrocyte distribution width (RBC) [Ratio] 15.1 % High 10.9 - 14.2 % [facility] Hematocrit (Bld) [Volume fraction] 34.6 % Normal 34.0 - 46.0 % [facility] Hemoglobin (Bld) [Mass/Vol] 11.8 g/dL Low 12.0 - 16.0 gm/dL [facility] MCH (RBC) [Entitic mass] 29.1 pg Normal 27.0 - 34.0 pg [facility] MCHC (RBC) [Mass/Vol] 34.0 g/dL Normal 31.4 - 36.0 gm/dL [facility] MCV (RBC) [Entitic vol] 85.7 fL Normal 80.0 - 100.0 fL [facility] Platelet mean volume (Bld) [Entitic vol] 6.9 fL Normal 6.4 - 10.8 fL [facility] Platelets (Bld) [#/Vol] 194.0 E9/L Normal 150.0 - 500.0 E9/L [facility] RBC (Bld) [#/Vol] 4.0 E12/L Low 4.3 - 5.9 E12/L [facility] WBC corrected for nucl RBC Auto (Bld) [#/Vol] 5.7 E9/L Normal 4.0 - 11.0 E9/L [facility] Automated basophil %on 01-17 Basophils/100 WBC (Bld) 0.8 % [facility] Automated basophil counton 1 03-19-2018 Basophils (Bld) [#/Vol] 0.1 10*3/uL 0.0-0.2 [facility] Automated blood lymphocyte c ount (number/volume)on 01-17-2019 Lymphocytes (Bld) [#/Vol] 1.2 10*3/uL 1.00-4.8 [facility] Automated blood lymphocyte c ount as percentage of total leukocyteson 01-17-2019 Lymphocytes/100 WBC (Bld) 19.0 % [facility] Automated blood monocyte cou nton 01-17-2019 Monocytes (Bld) [#/Vol] 0.5 10*3/uL 0.0-0.8 [facility] Automated blood platelet cou nt (count/volume)on 01-17-2019 Platelets (Bld) [#/Vol] 259 10*3/uL 150-450 [facility] Automated blood platelet gabriele n volume measurementon 01-17-2019 Platelet mean volume (Bld) [Entitic vol] 7.0 fL 6.3-10.7 [facility] Automated eosinophil %on Eosinophils/100 WBC (Bld) 3.9 % [facility] Automated eosinophil counton 01-17-2019 Eosinophils (Bld) [#/Vol] 0.2 10*3/uL 0.0-0.45 [facility] Automated erythrocyte distri bution width ratioon 01-17-2019 Erythrocyte distribution width (RBC) [Ratio] 15.8 % 11.9-15.3 [facility] Automated erythrocyte mean c orpuscular hemoglobin (mass per erythrocyte)on 01-17-2019 MCH (RBC) [Entitic mass] 28.1 pg 24.7-34.3 [facility] Automated erythrocyte mean c orpuscular hemoglobin concentration measurement (mass/volon 01-17-2019 MCHC (RBC) [Mass/Vol] 33.2 g/dL 32.0-35.0 [facility] Automated erythrocyte mean c orpuscular volumeon 01-17-2019 MCV (RBC) [Entitic vol] 84.7 fL 80-100 [facility] Automated monocyte %on 01-17 Monocytes/100 WBC (Bld) 8.4 % [facility] Automated neutrophil %on Neutrophils/100 WBC (Bld) 67.9 % [facility] Blood erythrocytes automated count (number/volume)on 01-17-2019 RBC (Bld) [#/Vol] 3.58 10*6/uL 3.60-5.00 [facility] Blood hemoglobin measurement (mass/volume)on 01-17-2019 Hemoglobin (Bld) [Mass/Vol] 10.1 g/dL 11.8-15.4 [facility] Blood leukocytes automated c ount (number/volume)on 01-17-2019 WBC (Bld) [#/Vol] 6.4 10*3/uL 4.5-11.0 [facility] Blood neutrophil count by au tomated method (number/volume)on 01-17-2019 Neutrophils (Bld) [#/Vol] 4.3 10*3/uL 1.8-7.7 [facility] Estimated glomerular filtrat ion rate (GFR) non- Americanon 01-17-2019 GFR/1.73 sq M predicted among non-blacks MDRD (S/P/Bld) [Vol rate/Area] 45 mL/min/{1.73_m2} [facility] Hematocrit [Volume Fraction] of Blood by Automated counton 01-17-2019 Hematocrit (Bld) [Volume fraction] 30.3 % 34.0-46.4 [facility] Otheron 01-17-2019 GFR/1.73 sq M.predicted MDRD (S/P/Bld) [Vol rate/Area] 55 mL/min/{1.73_m2} [facility] Comment on above: GFR estimated refere nce range: According to KDOQI guidelines, <60 ml/min/1.73m2 is sufficient to diagnose a patient with chronic kidney disease. Nucleated RBC/100 WBC (Bld) [Ratio] 0.1 % 0-0.5 [facility] Creatinine Clearance (Chem N/A [facility] Serum or plasma calcium juaquin urement (mass/volume)on 01-17-2019 Calcium [Mass/Vol] 9.6 mg/dL 8.2-10.2 [facility] Serum or plasma chloride gabriele surement (moles/volume)on 01-17-2019 Chloride [Moles/Vol] 103 mmol/L 95-114 [facility] Serum or plasma creatinine m easurement with calculation of estimated glomerular filtron 01-17-2019 Creatinine [Mass/Vol] 1.16 mg/dL 0.44-1.03 [facility] Serum or plasma glucose juaquin urement (mass/volume)on 01-17-2019 Glucose [Mass/Vol] 95 mg/dL 70-100 [facility] Comment on above: ADA recommended refe rence rangeRandom Glucose Reference Range is dependent on time and content of last meal. Glucose of more than 200 mg/dL in a nonstressed, ambulatory subject supports the diagnosis of Diabetes Mellitus. Serum or plasma potassium me asurement (moles/volume)on 01-17-2019 Potassium [Moles/Vol] 4.3 mmol/L 3.5-5.1 [facility] Serum or plasma sodium measu rement (moles/volume)on 01-17-2019 Sodium [Moles/Vol] 138 mmol/L 136-146 [facility] Serum or plasma total carbon dioxide measurement (moles/volume)on 01-17-2019 CO2 [Moles/Vol] 27.8 mmol/L 22.0-30.0 [facility] Serum or plasma urea nitroge n measurement (mass/volume)on 01-17-2019 Urea nitrogen [Mass/Vol] 25 mg/dL 12-02 [facility] Transfusion reaction panel ( ABO, Rh)on 01-06-2019 Microscopic observation Gram stain Nom (Unsp spec) [facility] Cult, Bloodon 12-21-2018 Cult, Blood Specimen Description .BLOOD Special Requests RIGHT HAND 3ML Culture NO GROWTH 6 DAYS Report Status FINAL 12/21/[address] [facility] Comment on above: Performed By: #### C BC, PT, CMPX, MG, ANNIE, VNCR, IOCAL #### [address] [place] [address] Scrap Bunch Maker: Robin Mahoney MD Cult,Bloodon 12-21-2018 Cult,Blood Specimen Description .BLOOD Special Requests LEFT ARM 3ML Culture NO GROWTH 6 DAYS Report Status FINAL 12/21/[address] [facility] Comment on above: Performed By: #### C BC, PT, CMPX, MG, ANNIE, VNCR, IOCAL #### [facility] [place], [place] [phone] Scrap Bunch Maker: Robin Mahoney MD Cult,Aerobe/Anaerobeon 12-20 Cult,Aerobe/Anaerobe Specimen Descriptio n .WOUND LEFT .LEG Special Requests NOT REPORTED Direct Exam MODERATE NEUTROPHILS MODERATE GRAM POSITIVE RODS FEW GRAM POSITIVE COCCI IN CLUSTERS FEW GRAM NEGATIVE RODS Culture MULTIPLE SPECIES OF GRAM NEGATIVE BACTERIA, NO PREDOMINANT ORGANISM ISOLATED. MOD ERATE GROWTH NORMAL CARY This is a mixed culture of organisms, which may represent colonization or contamination. Notify the laboratory within 7 days for further workup. Susceptibilities have not been performed. NO ANAEROBIC ORGANISMS ISOLATED AT 5 DAYS Report Status FINAL 12/20/2018 [facility] Comment on above: Performed By: #### C BC, PT, CMPX, MG, ANNIE, VNCR, IOCAL #### [address] [facility] [place], [place] [id number] Scrap Bunch Maker: Robin Mahoney MD Basic Metabolic Panelon Anion gap [Moles/Vol] 13 mmol/L 9 - 17 mmol/L [place] Bun/Cre Ratio NOT REPORTED [place] Calcium [Mass/Vol] 9.1 mg/dL 8.6 - 10. 4 mg/dL [place] Chloride [Moles/Vol] 102 mmol/L 98 - 10 7 mmol/L [place] CO2 [Moles/Vol] 25 mmol/L 20 - 31 mmol/L [place] Creatinine [Mass/Vol] 1.02 mg/dL High 0.5 - 0.9 mg/dL [place] GFR >60 >60 mL/min [place] GFR Non- 52 mL/min Low >60 [place] GFR/1.73 sq M predicted among non-blacks MDRD (S/P/Bld) [Vol rate/Area] NOT REPORTED [place] GFR/1.73 sq M predicted among non-blacks MDRD (S/P/Bld) [Vol rate/Area] [place] Comment on above: Average GFR for 70 o r more years old: 75 mL/min/1.73sq m Chronic Kidney Disease: <60 mL/min/1.73sq m Kidney failure: <15 mL/min/1.73sq m eGFR calculated using average adult body mass. Additional eGFR calculator available at: http://www.Veebow/multiple_crcl_2012.htm Glucose [Mass/Vol] 89 mg/dL 70 - 99 mg/dL [place] Interpretation and review of laboratory results Abnormal [place] Potassium [Moles/Vol] 4.0 mmol/L 3.7 - 5.3 mmol/L [place] Sodium [Moles/Vol] 140 mmol/L 135 - 144 mmol/L [place] Urea nitrogen [Mass/Vol] 27 mg/dL High 8 - 23 mg/dL [place] Basic Metabolic Profon 12-18 (cont.) Normal [facility] Comment on above: Result Comment: Aver age GFR for 70 or more years old: 75 mL/min/1.73sq m Chronic Kidney Disease: <60 mL/min/1.73sq m Kidney failure: <15 mL/min/1.73sq m eGFR calculated using average adult body mass. Additional eGFR calculator available at: http://www.Veebow/multiple_crcl_2012.htm Performed By: #### C BC, PT, CMPX, MG, ANNIE, VNCR, IOCAL #### [address] [address] Scrap Bunch Maker: Robin Mahoney MD Anion gap [Moles/Vol] 13 mmol/L Normal 9-17 [facility] Comment on above: Performed By: #### C BC, PT, CMPX, MG, ANNIE, VNCR, IOCAL #### [address] [address] Scrap Bunch Maker: Robin Mahoney MD Calcium [Mass/Vol] 9.1 mg/dL Normal 8.6-10.4 [facility] Comment on above: Performed By: #### C BC, PT, CMPX, MG, ANNIE, VNCR, IOCAL #### [address] [address] Scrap Bunch Maker: Robin Mahoney MD Chloride [Moles/Vol] 102 mmol/L Normal 98-107 [facility] Comment on above: Performed By: #### C BC, PT, CMPX, MG, ANNIE, VNCR, IOCAL #### [address] [address] Scrap Bunch Maker: Robin Mahoney MD CO2 [Moles/Vol] 25 mmol/L Normal 20-31 [facility] Comment on above: Performed By: #### C BC, PT, CMPX, MG, ANNIE, VNCR, IOCAL #### [address] [address] Scrap Bunch Maker: Robin Mahoney MD Creatinine [Mass/Vol] 1.02 mg/dL High 0.50-0.90 [facility] Comment on above: Performed By: #### C BC, PT, CMPX, MG, ANNIE, VNCR, IOCAL #### [address] [address] Scrap Bunch Maker: Robin Mahoney MD GFR, Amer >60 Normal >60 [facility] Comment on above: Performed By: #### C BC, PT, CMPX, MG, ANNIE, VNCR, IOCAL #### [facility] [employer] [address] [place] [address] Scrap Bunch Maker: Robin Mahoney MD GFR,non Amer 52 mL/min Low >60 [facility] Comment on above: Performed By: #### C BC, PT, CMPX, MG, ANNIE, VNCR, IOCAL #### [facility] [employer] [address] [place] [phone] Scrap Bunch Maker: Robin Mahoney MD Glucose [Mass/Vol] 89 mg/dL Normal 70-99 [facility] Comment on above: Performed By: #### C BC, PT, CMPX, MG, ANNIE, VNCR, IOCAL #### [address] [address] Scrap Bunch Maker: Robin Mahoney MD Potassium [Moles/Vol] 4.0 mmol/L Normal 3.7-5.3 [facility] Comment on above: Performed By: #### C BC, PT, CMPX, MG, ANNIE, VNCR, IOCAL #### [facility] [employer] [address] [place] [address] Scrap Bunch Maker: Robin Mahoney MD Sodium [Moles/Vol] 140 mmol/L Normal 135-144 [facility] Comment on above: Performed By: #### C BC, PT, CMPX, MG, ANNIE, VNCR, IOCAL #### [facility] [employer] [address] [place] [address] Scrap Bunch Maker: Robin Mahoney MD Urea nitrogen [Mass/Vol] 27 mg/dL High 8-23 [facility] Comment on above: Performed By: #### C BC, PT, CMPX, MG, ANNIE, VNCR, IOCAL #### [facility] [employer] [address] [place] [phone] Scrap Bunch Maker: Robin Mahoney MD BUN/CRE Ratio NOT REPORTED Normal 9- [facility] Comment on above: Performed By: #### C BC, PT, CMPX, MG, ANNIE, VNCR, IOCAL #### [address] [address] Scrap Bunch Maker: Robin Mahoney MD Staging: NOT REPORTED Normal [facility] Comment on above: Performed By: #### C BC, PT, CMPX, MG, ANNIE, VNCR, IOCAL #### [address] [address] Scrap Bunch Maker: Robin Mahoney MD CBCon 12-18-2018 Erythrocyte distribution width (RBC) [Ratio] 14.2 % Normal 11.8-14.4 [facility] Comment on above: Performed By: #### C BC, PT, CMPX, MG, ANNIE, VNCR, IOCAL #### [address] [address] Scrap Bunch Maker: Robin Mahoney MD Hematocrit (Bld) [Volume fraction] 26.5 % Low 36.3-47.1 [facility] Comment on above: Performed By: #### C BC, PT, CMPX, MG, ANNIE, VNCR, IOCAL #### [address] [address] Scrap Bunch Maker: Robin Mahoney MD Hemoglobin (Bld) [Mass/Vol] 8.2 g/dL Low 11.9-15.1 [facility] Comment on above: Performed By: #### C BC, PT, CMPX, MG, ANNIE, VNCR, IOCAL #### [facility] [employer] [address] [place] [address] Scrap Bunch Maker: Robin Mahoney MD MCH (RBC) [Entitic mass] 28.6 pg Normal 25.2-33.5 [facility] Comment on above: Performed By: #### C BC, PT, CMPX, MG, ANNIE, VNCR, IOCAL #### [address] [address] Scrap Bunch Maker: Robin Mahoney MD MCHC (RBC) [Mass/Vol] 30.9 g/dL Normal 28.4-34.8 [facility] Comment on above: Performed By: #### C BC, PT, CMPX, MG, ANNIE, VNCR, IOCAL #### [place] [address] Scrap Bunch Maker: Robin Mahoney MD MCV (RBC) [Entitic vol] 92.3 fL Normal 82.6-102.9 [facility] Comment on above: Performed By: #### C BC, PT, CMPX, MG, ANNIE, VNCR, IOCAL #### [place] [address] Scrap Bunch Maker: Robin Mahoney MD NRBC Automated 0.0 per [address] [facility] Comment on above: Performed By: #### C BC, PT, CMPX, MG, ANNIE, VNCR, IOCAL #### [place] [address] Scrap Bunch Maker: Robin Mahoney MD Platelet mean volume (Bld) [Entitic vol] 10.1 fL Normal 8.1-13.5 [facility] Comment on above: Performed By: #### C BC, PT, CMPX, MG, ANNIE, VNCR, IOCAL #### [place] [address] Scrap Bunch Maker: Robin Mahoney MD Platelets (Bld) [#/Vol] 262 10*3/uL Normal 138-453 [facility] Comment on above: Performed By: #### C BC, PT, CMPX, MG, ANNIE, VNCR, IOCAL #### [place] [address] Scrap Bunch Maker: Robin Mhaoney MD RBC (Bld) [#/Vol] 2.87 10*6/uL Low 3.95-5.11 [facility] Comment on above: Performed By: #### C BC, PT, CMPX, MG, ANNIE, VNCR, IOCAL #### [facility] [address] [place], [place] [phone] Scrap Bunch Maker: Robin Mahoney MD WBC (Bld) [#/Vol] 6.2 10*3/uL Normal 3.5-11.3 [facility] Comment on above: Performed By: #### C BC, PT, CMPX, MG, ANNIE, VNCR, IOCAL #### [facility] [address] [place], [place] [phone] Scrap Bunch Maker: Robin Mahoney MD Erythrocyte distribution width (RBC) [Ratio] 14.2 % 11.8 - 14.4 % [place] Hematocrit (Bld) [Volume fraction] 26.5 % Low 36.3 - 47.1 % [place] Hemoglobin (Bld) [Mass/Vol] 8.2 g/dL Low 11.9 - 15.1 g/dL [place] Interpretation and review of laboratory results Abnormal [place] MCH (RBC) [Entitic mass] 28.6 pg 25.2 - 33.5 pg [place] MCHC (RBC) [Mass/Vol] 30.9 g/dL 28.4 - 34.8 g/dL [place] MCV (RBC) [Entitic vol] 92.3 fL 82.6 - 102.9 fL [place] Platelet mean volume (Bld) [Entitic vol] 10.1 fL 8.1 - 13.5 fL [place] Platelets (Bld) [#/Vol] 262 10*3/uL [place] RBC (Bld) [#/Vol] 2.87 10*6/uL Low 3.95 - 5.11 m/uL [place] WBC (Bld) [#/Vol] 0.0 10*3/uL 0.0 per 100 WBC [place] WBC (Bld) [#/Vol] 6.2 10*3/uL [place] Basic Metabolic Panelon 10-0 Anion gap [Moles/Vol] 10 mmol/L 9 - 17 mmol/L [place] Bun/Cre Ratio NOT REPORTED [place] Calcium [Mass/Vol] 8.8 mg/dL 8.6 - 10. 4 mg/dL [place] Chloride [Moles/Vol] 100 mmol/L 98 - 10 7 mmol/L [place] CO2 [Moles/Vol] 27 mmol/L 20 - 31 mmol/L [place] Creatinine [Mass/Vol] 1.04 mg/dL High 0.5 - 0.9 mg/dL [place] GFR >60 >60 mL/min [place] GFR Non- 51 mL/min Low >60 [place] GFR/1.73 sq M predicted among non-blacks MDRD (S/P/Bld) [Vol rate/Area] [place] Comment on above: Average GFR for 70 o r more years old: 75 mL/min/1.73sq m Chronic Kidney Disease: <60 mL/min/1.73sq m Kidney failure: <15 mL/min/1.73sq m eGFR calculated using average adult body mass. Additional eGFR calculator available at: http://www.Evaneos.dELiAs/multiple_crcl_2012.htm GFR/1.73 sq M predicted among non-blacks MDRD (S/P/Bld) [Vol rate/Area] NOT REPORTED [place] Glucose [Mass/Vol] 86 mg/dL 70 - 99 mg/dL [place] Interpretation and review of laboratory results Abnormal [place] Potassium [Moles/Vol] 4.0 mmol/L 3.7 - 5.3 mmol/L [place] Sodium [Moles/Vol] 137 mmol/L 135 - 144 mmol/L [place] Urea nitrogen [Mass/Vol] 23 mg/dL 8 - 23 mg/dL [place] Basic Metabolic Profon 12-17 (cont.) Normal [facility] Comment on above: Result Comment: Aver age GFR for 70 or more years old: 75 mL/min/1.73sq m Chronic Kidney Disease: <60 mL/min/1.73sq m Kidney failure: <15 mL/min/1.73sq m eGFR calculated using average adult body mass. Additional eGFR calculator available at: http://www.Veebow/multiple_crcl_2012.htm Performed By: #### C BC, PT, CMPX, MG, ANNIE, VNCR, IOCAL #### [address] [address] Scrap Bunch Maker: Robin Mahoney MD Anion gap [Moles/Vol] 10 mmol/L Normal 9-17 [facility] Comment on above: Performed By: #### C BC, PT, CMPX, MG, ANNIE, VNCR, IOCAL #### [facility] [employer] [address] [place] [address] Scrap Bunch Maker: Robin Mahoney MD Calcium [Mass/Vol] 8.8 mg/dL Normal 8.6-10.4 [facility] Comment on above: Performed By: #### C BC, PT, CMPX, MG, ANNIE, VNCR, IOCAL #### [facility] [employer] [address] [place] [address] Scrap Bunch Maker: Robin Mahoney MD Chloride [Moles/Vol] 100 mmol/L Normal 98-107 [facility] Comment on above: Performed By: #### C BC, PT, CMPX, MG, ANNIE, VNCR, IOCAL #### [facility] [employer] [address] [place] [address] Scrap Bunch Maker: Robin Mahoney MD CO2 [Moles/Vol] 27 mmol/L Normal 20-31 [facility] Comment on above: Performed By: #### C BC, PT, CMPX, MG, ANNIE, VNCR, IOCAL #### [address] [address] Scrap Bunch Maker: Robin Mahoney MD Creatinine [Mass/Vol] 1.04 mg/dL High 0.50-0.90 [facility] Comment on above: Performed By: #### C BC, PT, CMPX, MG, ANNIE, VNCR, IOCAL #### [address] [address] Scrap Bunch Maker: Robin Mahoney MD GFR, Amer >60 Normal >60 [facility] Comment on above: Performed By: #### C BC, PT, CMPX, MG, ANNIE, VNCR, IOCAL #### [address] [address] Scrap Bunch Maker: Robin Mahoney MD GFR,non Amer 51 mL/min Low >60 [facility] Comment on above: Performed By: #### C BC, PT, CMPX, MG, ANNIE, VNCR, IOCAL #### [address] [address] Scrap Bunch Maker: Robin Mahoney MD Glucose [Mass/Vol] 86 mg/dL Normal 70-99 [facility] Comment on above: Performed By: #### C BC, PT, CMPX, MG, ANNIE, VNCR, IOCAL #### [address] [address] Scrap Bunch Maker: Robin Mahoney MD Potassium [Moles/Vol] 4.0 mmol/L Normal 3.7-5.3 [facility] Comment on above: Performed By: #### C BC, PT, CMPX, MG, ANNIE, VNCR, IOCAL #### [address] [address] Scrap Bunch Maker: Robin Mahoney MD Sodium [Moles/Vol] 137 mmol/L Normal 135-144 [facility] Comment on above: Performed By: #### C BC, PT, CMPX, MG, ANNIE, VNCR, IOCAL #### [facility] [employer] [address] [place] [address] Scrap Bunch Maker: Robin Mahoney MD Urea nitrogen [Mass/Vol] 23 mg/dL Normal 8-23 [facility] Comment on above: Performed By: #### C BC, PT, CMPX, MG, ANNIE, VNCR, IOCAL #### [facility] [employer] [address] [place] [address] Scrap Bunch Maker: Robin Mahoney MD BUN/CRE Ratio NOT REPORTED Normal - [facility] Comment on above: Performed By: #### C BC, PT, CMPX, MG, ANNIE, VNCR, IOCAL #### [address] [address] Scrap Bunch Maker: Robin Mahoney MD Staging: NOT REPORTED Normal [facility] Comment on above: Performed By: #### C BC, PT, CMPX, MG, ANNIE, VNCR, IOCAL #### [facility] [employer] [address] [place] [address] Scrap Bunch Maker: Robin Mahoney MD CBCon 12-17-2018 Erythrocyte distribution width (RBC) [Ratio] 14.0 % Normal 11.8-14.4 [facility] Comment on above: Performed By: #### C BC, PT, CMPX, MG, ANNIE, VNCR, IOCAL #### [facility] [employer] [address] [place] [address] Scrap Bunch Maker: Robin Mahoney MD Hematocrit (Bld) [Volume fraction] 26.3 % Low 36.3-47.1 [facility] Comment on above: Performed By: #### C BC, PT, CMPX, MG, ANNIE, VNCR, IOCAL #### [facility] [employer] [address] [place] [address] Scrap Bunch Maker: Robin Mahoney MD Hemoglobin (Bld) [Mass/Vol] 8.1 g/dL Low 11.9-15.1 [facility] Comment on above: Performed By: #### C BC, PT, CMPX, MG, ANNIE, VNCR, IOCAL #### [address] [phone] Scrap Bunch Maker: Robin Mahoney MD MCH (RBC) [Entitic mass] 28.4 pg Normal 25.2-33.5 [facility] Comment on above: Performed By: #### C BC, PT, CMPX, MG, ANNIE, VNCR, IOCAL #### [place] [address] Scrap Bunch Maker: Robin Mahoney MD MCHC (RBC) [Mass/Vol] 30.8 g/dL Normal 28.4-34.8 [facility] Comment on above: Performed By: #### C BC, PT, CMPX, MG, ANNIE, VNCR, IOCAL #### [place] [address] Scrap Bunch Maker: Robin Mahoney MD MCV (RBC) [Entitic vol] 92.3 fL Normal 82.6-102.9 [facility] Comment on above: Performed By: #### C BC, PT, CMPX, MG, ANNIE, VNCR, IOCAL #### [facility] [employer] [address] [place] [address] Scrap Bunch Maker: Robin Mahoney MD NRBC Automated 0.0 per [address] [facility] Comment on above: Performed By: #### C BC, PT, CMPX, MG, ANNIE, VNCR, IOCAL #### [address] [phone] Scrap Bunch Maker: Robin Mahoney MD Platelet mean volume (Bld) [Entitic vol] 9.4 fL Normal 8.1-13.5 [facility] Comment on above: Performed By: #### C BC, PT, CMPX, MG, ANNIE, VNCR, IOCAL #### [facility] [facility] [place], [place] [phone] Scrap Bunch Maker: Robin Mahoney MD Platelets (Bld) [#/Vol] 216 10*3/uL Normal 138-453 [facility] Comment on above: Performed By: #### C BC, PT, CMPX, MG, ANNIE, VNCR, IOCAL #### [facility] [facility] [place], [place] [phone] Scrap Bunch Maker: Robin Mahoney MD RBC (Bld) [#/Vol] 2.85 10*6/uL Low 3.95-5.11 [facility] Comment on above: Performed By: #### C BC, PT, CMPX, MG, ANNIE, VNCR, IOCAL #### [facility] [employer] [address] [place] [address] [phone] Scrap Bunch Maker: Robin Mahoney MD WBC (Bld) [#/Vol] 5.1 10*3/uL Normal 3.5-11.3 [facility] Comment on above: Performed By: #### C BC, PT, CMPX, MG, ANNIE, VNCR, IOCAL #### [address] [phone] Scrap Bunch Maker: Robin Mahoney MD Erythrocyte distribution width (RBC) [Ratio] 14.0 % 11.8 - 14.4 % [place] Hematocrit (Bld) [Volume fraction] 26.3 % Low 36.3 - 47.1 % [place] Hemoglobin (Bld) [Mass/Vol] 8.1 g/dL Low 11.9 - 15.1 g/dL [place] Interpretation and review of laboratory results Abnormal [place] MCH (RBC) [Entitic mass] 28.4 pg 25.2 - 33.5 pg [place] MCHC (RBC) [Mass/Vol] 30.8 g/dL 28.4 - 34.8 g/dL [place] MCV (RBC) [Entitic vol] 92.3 fL 82.6 - 102.9 fL [place] Platelet mean volume (Bld) [Entitic vol] 9.4 fL 8.1 - 13.5 fL [place] Platelets (Bld) [#/Vol] 216 10*3/uL [place] RBC (Bld) [#/Vol] 2.85 10*6/uL Low 3.95 - 5.11 m/uL [place] WBC (Bld) [#/Vol] 0.0 10*3/uL 0.0 per 100 WBC [place] WBC (Bld) [#/Vol] 5.1 10*3/uL [place] Calcium, Ionicon 12-17-2018 Calcium [Mass/Vol] 1.19 mmol/L Normal 1.13-1.33 [facility] Comment on above: Performed By: #### C BC, PT, CMPX, MG, ANNIE, VNCR, IOCAL #### [facility] [facility] [place] [address] Scrap Bunch Maker: Robin Mahoney MD Calcium, Ionizedon 9 Calcium [Mass/Vol] 1.19 mmol/L 1.13 - 1.33 mmol/L [place] VANCOMYCIN, TROUGHon 019 Vancomycin Tr 12.9 ug/mL 10 - 20 ug/mL [place] Comment on above: Higher trough serum vancomycin concentrations of 15-20 ug/mL are recommended for complicated infections such as bacteremia, endocarditis, osteomyelitis, meningitis, and hospital acquired pneumonia. Vancomycin Trough Date last dose NOT REPORTED [place] Vancomycin Trough Dose amount NOT REPORTED [place] Vancomycin Trough Time last dose NOT REPORTED [place] Vancomycin Troughon 12-18-19 19 Vancomycin Trough 12.9 ug/mL Normal 10.0-20.0 [facility] Comment on above: Result Comment: High er trough serum vancomycin concentrations of 15-20 ug/mL are recommended for complicated infections such as bacteremia, endocarditis, osteomyelitis, meningitis, and hospital acquired pneumonia. Performed By: #### C BC, PT, CMPX, MG, ANNIE, VNCR, IOCAL #### [facility] [place] [address] Scrap Bunch Maker: Robin Mahoney MD Date last dose, NOT REPORTED Normal [facility] Comment on above: Performed By: #### C BC, PT, CMPX, MG, ANNIE, VNCR, IOCAL #### [address] [place] [address] Scrap Bunch Maker: Robin Mahoney MD Dose amount, NOT REPORTED Normal [facility] Comment on above: Performed By: #### C BC, PT, CMPX, MG, ANNIE, VNCR, IOCAL #### [address] [place] [address] Scrap Bunch Maker: Robin Mahoney MD Time last dose, NOT REPORTED Normal [facility] Comment on above: Performed By: #### C BC, PT, CMPX, MG, ANNIE, VNCR, IOCAL #### [address] [place] [address] Scrap Bunch Maker: Robin Mahoney MD Basic Metab w/rfx MGon 12-16 (cont.) Normal [facility] Comment on above: Result Comment: Aver age GFR for 70 or more years old: 75 mL/min/1.73sq m Chronic Kidney Disease: <60 mL/min/1.73sq m Kidney failure: <15 mL/min/1.73sq m eGFR calculated using average adult body mass. Additional eGFR calculator available at: http://www.Evaneos.com/multiple_crcl_2012.htm Performed By: #### C BC, PT, CMPX, MG, ANNIE, VNCR, IOCAL #### [address] [place] [phone] Scrap Bunch Maker: Robin Mahoney MD Anion gap [Moles/Vol] 11 mmol/L Normal 9-17 [facility] Comment on above: Performed By: #### C BC, PT, CMPX, MG, ANNEI, VNCR, IOCAL #### [facility] [employer] [address] [place] [address] Scrap Bunch Maker: Robin Mahoney MD Calcium [Mass/Vol] 8.5 mg/dL Low 8.6-10.4 [facility] Comment on above: Performed By: #### C BC, PT, CMPX, MG, ANNIE, VNCR, IOCAL #### [address] [address] Scrap Bunch Maker: Robin Mahoney MD Chloride [Moles/Vol] 102 mmol/L Normal 98-107 [facility] Comment on above: Performed By: #### C BC, PT, CMPX, MG, ANNIE, VNCR, IOCAL #### [facility] [address] [place] [address] Scrap Bunch Maker: Robin Mahoney MD CO2 [Moles/Vol] 25 mmol/L Normal 20-31 [facility] Comment on above: Performed By: #### C BC, PT, CMPX, MG, ANNIE, VNCR, IOCAL #### [facility] [address] [place] [address] Scrap Bunch Maker: Robin Mahoney MD Creatinine [Mass/Vol] 1.05 mg/dL High 0.50-0.90 [facility] Comment on above: Performed By: #### C BC, PT, CMPX, MG, ANNIE, VNCR, IOCAL #### [facility] [address] [place] [address] Scrap Bunch Maker: Robin Mahoney MD GFR, Amer >60 Normal >60 [facility] Comment on above: Performed By: #### C BC, PT, CMPX, MG, ANNIE, VNCR, IOCAL #### [address] [address] Scrap Bunch Maker: Robin Mahoney MD GFR,non Amer 51 mL/min Low >60 [facility] Comment on above: Performed By: #### C BC, PT, CMPX, MG, ANNIE, VNCR, IOCAL #### [address] [address] Scrap Bunch Maker: Robin Mahoney MD Glucose [Mass/Vol] 91 mg/dL Normal 70-99 [facility] Comment on above: Performed By: #### C BC, PT, CMPX, MG, ANNIE, VNCR, IOCAL #### [address] [address] Scrap Bunch Maker: Robin Mahoney MD Potassium [Moles/Vol] 4.4 mmol/L Normal 3.7-5.3 [facility] Comment on above: Performed By: #### C BC, PT, CMPX, MG, ANNIE, VNCR, IOCAL #### [address] [address] Scrap Bunch Maker: Robin Mahoney MD Sodium [Moles/Vol] 138 mmol/L Normal 135-144 [facility] Comment on above: Performed By: #### C BC, PT, CMPX, MG, ANNIE, VNCR, IOCAL #### [address] [address] Scrap Bunch Maker: Robin Mahoney MD Urea nitrogen [Mass/Vol] 17 mg/dL Normal 8-23 [facility] Comment on above: Performed By: #### C BC, PT, CMPX, MG, ANNIE, VNCR, IOCAL #### [address] [address] Scrap Bunch Maker: Robin Mahoney MD BUN/CRE Ratio NOT REPORTED Normal 9-20 [facility] Comment on above: Performed By: #### C BC, PT, CMPX, MG, ANNIE, VNCR, IOCAL #### [facility] [address] [place], [place] [id number] Scrap Bunch Maker: Robin Mahoney MD Staging: NOT REPORTED Normal [facility] Comment on above: Performed By: #### C BC, PT, CMPX, MG, ANNIE, VNCR, IOCAL #### [facility] [address] [place], [place] [phone] Scrap Bunch Maker: Robin Mahoney MD Basic Metabolic Panel w/ Ref anabella to MGon 12-16-2018 Anion gap [Moles/Vol] 11 mmol/L 9 - 17 mmol/L [place] Bun/Cre Ratio NOT REPORTED [place] Calcium [Mass/Vol] 8.5 mg/dL Low 8.6 - 10. 4 mg/dL [place] Chloride [Moles/Vol] 102 mmol/L 98 - 10 7 mmol/L [place] CO2 [Moles/Vol] 25 mmol/L 20 - 31 mmol/L [place] Creatinine [Mass/Vol] 1.05 mg/dL High 0.5 - 0.9 mg/dL [place] GFR >60 >60 mL/min [place] GFR Non- 51 mL/min Low >60 [place] GFR/1.73 sq M predicted among non-blacks MDRD (S/P/Bld) [Vol rate/Area] [place] Comment on above: Average GFR for 70 o r more years old: 75 mL/min/1.73sq m Chronic Kidney Disease: <60 mL/min/1.73sq m Kidney failure: <15 mL/min/1.73sq m eGFR calculated using average adult body mass. Additional eGFR calculator available at: http://www.Evaneos.dELiAs/multiple_crcl_2012.htm GFR/1.73 sq M predicted among non-blacks MDRD (S/P/Bld) [Vol rate/Area] NOT REPORTED [place] Glucose [Mass/Vol] 91 mg/dL 70 - 99 mg/dL [place] Interpretation and review of laboratory results Abnormal [place] Potassium [Moles/Vol] 4.4 mmol/L 3.7 - 5.3 mmol/L [place] Sodium [Moles/Vol] 138 mmol/L 135 - 144 mmol/L [place] Urea nitrogen [Mass/Vol] 17 mg/dL 8 - 23 mg/dL [place] CBC Auto Differentialon 10-0 Basophils (Bld) [#/Vol] 0.04 10*3/uL [place] Basophils/100 WBC (Bld) 1 % 0 - 2 % [place] Differential Type NOT REPORTED [place] Eosinophils (Bld) [#/Vol] 0.24 10*3/uL [place] Eosinophils/100 WBC (Bld) 4 % 1 - 4 % [place] Erythrocyte distribution width (RBC) [Ratio] 14.4 % 11.8 - 14.4 % [place] Hematocrit (Bld) [Volume fraction] 25.0 % Low 36.3 - 47.1 % [place] Hemoglobin (Bld) [Mass/Vol] 7.6 g/dL Low 11.9 - 15.1 g/dL [place] Immature granulocytes (Bld) [#/Vol] 0 % 0 [place] Immature granulocytes (Bld) [#/Vol] 10*3/uL [place] Interpretation and review of laboratory results Abnormal [place] Lymphocytes (Bld) [#/Vol] 0.92 10*3/uL Low [place] Lymphocytes/100 WBC (Bld) 14 % Low 24 - 43 % [place] MCH (RBC) [Entitic mass] 28.5 pg 25.2 - 33.5 pg [place] MCHC (RBC) [Mass/Vol] 30.4 g/dL 28.4 - 34.8 g/dL [place] MCV (RBC) [Entitic vol] 93.6 fL 82.6 - 102.9 fL [place] Monocytes (Bld) [#/Vol] 0.53 10*3/uL [place] Monocytes/100 WBC (Bld) 8 % 3 - 12 % [place] Platelet mean volume (Bld) [Entitic vol] 9.6 fL 8.1 - 13.5 fL [place] Platelets (Bld) [#/Vol] NOT REPORTED [place] Platelets (Bld) [#/Vol] 224 10*3/uL [place] RBC (Bld) [#/Vol] 2.67 10*6/uL Low 3.95 - 5.11 m/uL [place] RBC morphology finding Nom (Bld) NOT REPORTED [place] Segmented neutrophils/100 WBC (Bld) 74 % High 36 - 65 % [place] Segs Absolute 4.94 [place] WBC (Bld) [#/Vol] 0.0 10*3/uL 0.0 per 100 WBC [place] WBC (Bld) [#/Vol] 6.7 10*3/uL [place] WBC Morphology NOT REPORTED [place] CBC with Diffon 12-16-2018 Abs. Basophil 0.04 k/uL Normal 0.00-0.20 [facility] Comment on above: Performed By: #### C BC, PT, CMPX, MG, ANNIE, VNCR, IOCAL #### [facility] [address] [place], [place] [phone] Scrap Bunch Maker: Robin Mahoney MD Abs.Imm.Granulocyte <0.03 Normal 0.00-0.30 [facility] Comment on above: Performed By: #### C BC, PT, CMPX, MG, ANNIE, VNCR, IOCAL #### [facility] [address] [place], [place] [phone] Scrap Bunch Maker: Robin Mahoney MD Abs.Neutrophil (Seg) 4.94 k/uL Normal 1.50-8.10 [facility] Comment on above: Performed By: #### C BC, PT, CMPX, MG, ANNIE, VNCR, IOCAL #### [facility] [address] [place] [address] Scrap Bunch Maker: Robin Mahoney MD Basophils/100 WBC (Bld) 1 % Normal 0-2 [facility] Comment on above: Performed By: #### C BC, PT, CMPX, MG, ANNIE, VNCR, IOCAL #### [facility] [address] [place] [address] Scrap Bunch Maker: Robin Mahoney MD Eosinophils (Bld) [#/Vol] 0.24 10*3/uL Normal 0.00-0.44 [facility] Comment on above: Performed By: #### C BC, PT, CMPX, MG, ANNIE, VNCR, IOCAL #### [place] [address] Scrap Bunch Maker: Robin Mahoney MD Eosinophils/100 WBC (Bld) 4 % Normal 1-4 [facility] Comment on above: Performed By: #### C BC, PT, CMPX, MG, ANNIE, VNCR, IOCAL #### [facility] [address] [place] [address] Scrap Bunch Maker: Robin Mahoney MD Erythrocyte distribution width (RBC) [Ratio] 14.4 % Normal 11.8-14.4 [facility] Comment on above: Performed By: #### C BC, PT, CMPX, MG, ANNIE, VNCR, IOCAL #### [facility] [address] [place] [address] Scrap Bunch Maker: Robin Mahoney MD Hematocrit (Bld) [Volume fraction] 25.0 % Low 36.3-47.1 [facility] Comment on above: Performed By: #### C BC, PT, CMPX, MG, ANNIE, VNCR, IOCAL #### [facility] [address] [place] [address] Scrap Bunch Maker: Robin Mahoney MD Hemoglobin (Bld) [Mass/Vol] 7.6 g/dL Low 11.9-15.1 [facility] Comment on above: Performed By: #### C BC, PT, CMPX, MG, ANNIE, VNCR, IOCAL #### [address] [address] Scrap Bunch Maker: Robin Mahoney MD Immature granulocytes (Bld) [#/Vol] 0 % Normal 0 [facility] Comment on above: Performed By: #### C BC, PT, CMPX, MG, ANNIE, VNCR, IOCAL #### [place] [address] Scrap Bunch Maker: Robin Mahoney MD Lymphocytes (Bld) [#/Vol] 0.92 10*3/uL Low 1.10-3.70 [facility] Comment on above: Performed By: #### C BC, PT, CMPX, MG, ANNIE, VNCR, IOCAL #### [address] [address] Scrap Bunch Maker: Robin Mahoney MD Lymphocytes/100 WBC (Bld) 14 % Low 24-43 [facility] Comment on above: Performed By: #### C BC, PT, CMPX, MG, ANNIE, VNCR, IOCAL #### [address] [address] Scrap Bunch Maker: Robin Mahoney MD MCH (RBC) [Entitic mass] 28.5 pg Normal 25.2-33.5 [facility] Comment on above: Performed By: #### C BC, PT, CMPX, MG, ANNIE, VNCR, IOCAL #### [address] [address] Scrap Bunch Maker: Robin Mahoney MD MCHC (RBC) [Mass/Vol] 30.4 g/dL Normal 28.4-34.8 [facility] Comment on above: Performed By: #### C BC, PT, CMPX, MG, ANNIE, VNCR, IOCAL #### [address] [address] Scrap Bunch Maker: Robin Mahoney MD MCV (RBC) [Entitic vol] 93.6 fL Normal 82.6-102.9 [facility] Comment on above: Performed By: #### C BC, PT, CMPX, MG, ANNIE, VNCR, IOCAL #### [address] [address] Scrap Bunch Maker: Robin Mahoney MD Monocytes (Bld) [#/Vol] 0.53 10*3/uL Normal 0.10-1.20 [facility] Comment on above: Performed By: #### C BC, PT, CMPX, MG, ANNIE, VNCR, IOCAL #### [address] [address] Scrap Bunch Maker: Robin Mahoney MD Monocytes/100 WBC (Bld) 8 % Normal 3-12 [facility] Comment on above: Performed By: #### C BC, PT, CMPX, MG, ANNIE, VNCR, IOCAL #### [address] [address] Scrap Bunch Maker: Robin Mahoney MD Neutrophil (Seg) 74 % High 36-65 [facility] Comment on above: Performed By: #### C BC, PT, CMPX, MG, ANNIE, VNCR, IOCAL #### [address] [address] Scrap Bunch Maker: Robin Mahoney MD NRBC Automated 0.0 per [address] [facility] Comment on above: Performed By: #### C BC, PT, CMPX, MG, ANNIE, VNCR, IOCAL #### [address] [address] Scrap Bunch Maker: Robin Mahoney MD Platelet mean volume (Bld) [Entitic vol] 9.6 fL Normal 8.1-13.5 [facility] Comment on above: Performed By: #### C BC, PT, CMPX, MG, ANNIE, VNCR, IOCAL #### [address] [address] Scrap Bunch Maker: Robin Mahoney MD Platelets (Bld) [#/Vol] 224 10*3/uL Normal 138-453 [facility] Comment on above: Performed By: #### C BC, PT, CMPX, MG, ANNIE, VNCR, IOCAL #### [address] [address] Scrap Bunch Maker: Robin Mahoney MD RBC (Bld) [#/Vol] 2.67 10*6/uL Low 3.95-5.11 [facility] Comment on above: Performed By: #### C BC, PT, CMPX, MG, ANNIE, VNCR, IOCAL #### [address] [address] Scrap Bunch Maker: Robin Mahoney MD WBC (Bld) [#/Vol] 6.7 10*3/uL Normal 3.5-11.3 [facility] Comment on above: Performed By: #### C BC, PT, CMPX, MG, ANNIE, VNCR, IOCAL #### [address] [address] Scrap Bunch Maker: Robin Mahoney MD Auto Diff Performed NOT REPORTED Normal [facility] Comment on above: Performed By: #### C BC, PT, CMPX, MG, ANNIE, VNCR, IOCAL #### [address] [address] Scrap Bunch Maker: Robin Mahoney MD Platelets (Bld) [#/Vol] NOT REPORTED Normal [facility] Comment on above: Performed By: #### C BC, PT, CMPX, MG, ANNIE, VNCR, IOCAL #### [facility] [address] [place] [address] Scrap Bunch Maker: Robin Mahoney MD RBC morphology finding Nom (Bld) NOT REPORTED Normal [facility] Comment on above: Performed By: #### C BC, PT, CMPX, MG, ANNIE, VNCR, IOCAL #### [facility] [address] [place] [address] Scrap Bunch Maker: Robin Mahoney MD WBC Morphology NOT REPORTED Normal [facility] Comment on above: Performed By: #### C BC, PT, CMPX, MG, ANNIE, VNCR, IOCAL #### [facility] [address] [place] [address] Scrap Bunch Maker: Robin Mahoney MD C-REACTIVE PROTEINon 019 CRP [Mass/Vol] 98.6 mg/L High 0 - 5 mg/L [place] Interpretation and review of laboratory results Abnormal [place] C-Reactive Proteinon 019 CRP [Mass/Vol] 98.6 mg/L High 0.0-5.0 [facility] Comment on above: Performed By: #### C RP, SED #### [facility] [address] [place] [address] Scrap Bunch Maker: Robin Mahoney MD CBCon 12-15-2018 Erythrocyte distribution width (RBC) [Ratio] 14.5 % High 11.8-14.4 [facility] Comment on above: Performed By: #### C BC, PT, CMPX, MG, ANNIE, VNCR, IOCAL #### [facility] [address] [place] [address] Scrap Bunch Maker: Robin Mahoney MD Hematocrit (Bld) [Volume fraction] 25.5 % Low 36.3-47.1 [facility] Comment on above: Performed By: #### C BC, PT, CMPX, MG, ANNIE, VNCR, IOCAL #### [address] [address] Scrap Bunch Maker: Robin Mahoney MD Hemoglobin (Bld) [Mass/Vol] 7.7 g/dL Low 11.9-15.1 [facility] Comment on above: Performed By: #### C BC, PT, CMPX, MG, ANNIE, VNCR, IOCAL #### [address] [address] Scrap Bunch Maker: Robin Mahoney MD MCH (RBC) [Entitic mass] 28.6 pg Normal 25.2-33.5 [facility] Comment on above: Performed By: #### C BC, PT, CMPX, MG, ANNIE, VNCR, IOCAL #### [place] [address] Scrap Bunch Maker: Robin Mahoney MD MCHC (RBC) [Mass/Vol] 30.2 g/dL Normal 28.4-34.8 [facility] Comment on above: Performed By: #### C BC, PT, CMPX, MG, ANNIE, VNCR, IOCAL #### [address] [address] Scrap Bunch Maker: Robin Mahoney MD MCV (RBC) [Entitic vol] 94.8 fL Normal 82.6-102.9 [facility] Comment on above: Performed By: #### C BC, PT, CMPX, MG, ANNIE, VNCR, IOCAL #### [address] [address] Scrap Bunch Maker: Robin Mahoney MD NRBC Automated 0.0 per [address] [facility] Comment on above: Performed By: #### C BC, PT, CMPX, MG, ANNIE, VNCR, IOCAL #### [place] [address] Scrap Bunch Maker: Robin Mahoney MD Platelet mean volume (Bld) [Entitic vol] 9.6 fL Normal 8.1-13.5 [facility] Comment on above: Performed By: #### C BC, PT, CMPX, MG, ANNIE, VNCR, IOCAL #### [address] [address] Scrap Bunch Maker: Robin Mahoney MD Platelets (Bld) [#/Vol] 232 10*3/uL Normal 138-453 [facility] Comment on above: Performed By: #### C BC, PT, CMPX, MG, ANNIE, VNCR, IOCAL #### [address] [address] Scrap Bunch Maker: Robin Mahoney MD RBC (Bld) [#/Vol] 2.69 10*6/uL Low 3.95-5.11 [facility] Comment on above: Performed By: #### C BC, PT, CMPX, MG, ANNIE, VNCR, IOCAL #### [address] [address] Scrap Bunch Maker: Robin Mahoney MD WBC (Bld) [#/Vol] 6.4 10*3/uL Normal 3.5-11.3 [facility] Comment on above: Performed By: #### C BC, PT, CMPX, MG, ANNIE, VNCR, IOCAL #### [facility] [address] [place] [address] Scrap Bunch Maker: Robin Mahoney MD Erythrocyte distribution width (RBC) [Ratio] 14.5 % High 11.8 - 14.4 % [place] Hematocrit (Bld) [Volume fraction] 25.5 % Low 36.3 - 47.1 % [place] Hemoglobin (Bld) [Mass/Vol] 7.7 g/dL Low 11.9 - 15.1 g/dL [place] Interpretation and review of laboratory results Abnormal [place] MCH (RBC) [Entitic mass] 28.6 pg 25.2 - 33.5 pg [place] MCHC (RBC) [Mass/Vol] 30.2 g/dL 28.4 - 34.8 g/dL [place] MCV (RBC) [Entitic vol] 94.8 fL 82.6 - 102.9 fL [place] Platelet mean volume (Bld) [Entitic vol] 9.6 fL 8.1 - 13.5 fL [place] Platelets (Bld) [#/Vol] 232 10*3/uL [place] RBC (Bld) [#/Vol] 2.69 10*6/uL Low 3.95 - 5.11 m/uL [place] WBC (Bld) [#/Vol] 6.4 10*3/uL [place] WBC (Bld) [#/Vol] 0.0 10*3/uL 0.0 per 100 WBC [place] Calcium, Ionicon 12-15-2018 Calcium [Mass/Vol] 1.21 mmol/L Normal 1.13-1.33 [facility] Comment on above: Performed By: #### C BC, PT, CMPX, MG, ANNIE, VNCR, IOCAL #### [employer] [place] [address] Scrap Bunch Maker: Robin Mahoney MD Comp Metabolic Pr/rfx MGon 1 (cont.) Normal [facility] Comment on above: Result Comment: Aver age GFR for 70 or more years old: 75 mL/min/1.73sq m Chronic Kidney Disease: <60 mL/min/1.73sq m Kidney failure: <15 mL/min/1.73sq m eGFR calculated using average adult body mass. Additional eGFR calculator available at: http://www.Evaneos.dELiAs/multiple_crcl_2012.htm Performed By: #### C BC, PT, CMPX, MG, ANNIE, VNCR, IOCAL #### [employer] [place] [address] Scrap Bunch Maker: Robin Mahoney MD Albumin [Mass/Vol] 3.3 g/dL Low 3.5-5.2 [facility] Comment on above: Performed By: #### C BC, PT, CMPX, MG, ANNIE, VNCR, IOCAL #### [address] [address] Scrap Bunch Maker: Robin Mahoney MD Albumin/Globulin [Mass ratio] 1.0 {ratio} Normal 1.0-2.5 [facility] Comment on above: Performed By: #### C BC, PT, CMPX, MG, ANNIE, VNCR, IOCAL #### [address] [address] Scrap Bunch Maker: Robin Mahoney MD Alkaline Phos 67 U/L Normal 35-104 [facility] Comment on above: Performed By: #### C BC, PT, CMPX, MG, ANNIE, VNCR, IOCAL #### [address] [address] Scrap Bunch Maker: Robin Mahoney MD ALT [Catalytic activity/Vol] 8 U/L Normal 5-33 [facility] Comment on above: Performed By: #### C BC, PT, CMPX, MG, ANNIE, VNCR, IOCAL #### [address] [address] Scrap Bunch Maker: Robin Mahoney MD Anion gap [Moles/Vol] 12 mmol/L Normal 9-17 [facility] Comment on above: Performed By: #### C BC, PT, CMPX, MG, ANNIE, VNCR, IOCAL #### [address] [address] Scrap Bunch Maker: Robin Mahoney MD AST [Catalytic activity/Vol] 15 U/L Normal <32 [facility] Comment on above: Performed By: #### C BC, PT, CMPX, MG, ANNIE, VNCR, IOCAL #### [address] [address] Scrap Bunch Maker: Robin Mahoney MD Bilirubin Ql (U) 0.25 mg/dL Low 0.3-1.2 [facility] Comment on above: Performed By: #### C BC, PT, CMPX, MG, ANNIE, VNCR, IOCAL #### [address] [address] Scrap Bunch Maker: Robin Mahoney MD Calcium [Mass/Vol] 8.6 mg/dL Normal 8.6-10.4 [facility] Comment on above: Performed By: #### C BC, PT, CMPX, MG, ANNIE, VNCR, IOCAL #### [address] [address] Scrap Bunch Maker: Robin Mahoney MD Chloride [Moles/Vol] 103 mmol/L Normal 98-107 [facility] Comment on above: Performed By: #### C BC, PT, CMPX, MG, ANNIE, VNCR, IOCAL #### [address] [address] Scrap Bunch Maker: Robin Mahoney MD CO2 [Moles/Vol] 23 mmol/L Normal 20-31 [facility] Comment on above: Performed By: #### C BC, PT, CMPX, MG, ANNIE, VNCR, IOCAL #### [facility] [address] [place] [address] Scrap Bunch Maker: Robin Mahoney MD Creatinine [Mass/Vol] 1.27 mg/dL High 0.50-0.90 [facility] Comment on above: Performed By: #### C BC, PT, CMPX, MG, ANNIE, VNCR, IOCAL #### [address] [address] Scrap Bunch Maker: Robin Mahoney MD GFR, Amer 49 mL/min Low >60 [facility] Comment on above: Performed By: #### C BC, PT, CMPX, MG, ANNIE, VNCR, IOCAL #### [facility] [address] [place] [address] Scrap Bunch Maker: Robin Mahoney MD GFR,non Amer 41 mL/min Low >60 [facility] Comment on above: Performed By: #### C BC, PT, CMPX, MG, ANNIE, VNCR, IOCAL #### [facility] [address] [place] [address] Scrap Bunch Maker: Robin Mahoney MD Glucose [Mass/Vol] 78 mg/dL Normal 70-99 [facility] Comment on above: Performed By: #### C BC, PT, CMPX, MG, ANNIE, VNCR, IOCAL #### [facility] [address] [place] [address] Scrap Bunch Maker: Robin Mahoney MD Potassium [Moles/Vol] 4.3 mmol/L Normal 3.7-5.3 [facility] Comment on above: Performed By: #### C BC, PT, CMPX, MG, ANNIE, VNCR, IOCAL #### [facility] [address] [place] [address] Scrap Bunch Maker: Robin Mahoney MD Protein [Mass/Vol] 6.6 g/dL Normal 6.4-8.3 [facility] Comment on above: Performed By: #### C BC, PT, CMPX, MG, ANNIE, VNCR, IOCAL #### [facility] [address] [place] [address] Scrap Bunch Maker: Robin Mahoney MD Sodium [Moles/Vol] 138 mmol/L Normal 135-144 [facility] Comment on above: Performed By: #### C BC, PT, CMPX, MG, ANNIE, VNCR, IOCAL #### [facility] [address] [place] [address] Scrap Bunch Maker: Robin Mahoney MD Urea nitrogen [Mass/Vol] 20 mg/dL Normal 11-01 [facility] Comment on above: Performed By: #### C BC, PT, CMPX, MG, ANNIE, VNCR, IOCAL #### [facility] [address] [place], [place] [phone] Scrap Bunch Maker: Robin aMhoney MD BUN/CRE Ratio NOT REPORTED Normal 11-29 [facility] Comment on above: Performed By: #### C BC, PT, CMPX, MG, ANNIE, VNCR, IOCAL #### [facility] [address] [place] [address] Scrap Bunch Maker: Robin Mahoney MD Staging: NOT REPORTED Normal [facility] Comment on above: Performed By: #### C BC, PT, CMPX, MG, ANNIE, VNCR, IOCAL #### [facility] [address] [place], [place] [phone] Scrap Bunch Maker: Robin Mahoney MD Comprehensive Metabolic Pane l w/ Reflex to MGon 12-15-2018 Albumin [Mass/Vol] 3.3 g/dL Low 3.5 - 5.2 g/dL [place] Albumin/Globulin [Mass ratio] 1.0 {ratio} [place] ALP [Catalytic activity/Vol] 67 U/L 35 - 104 U/L [place] ALT [Catalytic activity/Vol] 8 U/L 5 - 33 U/L [place] Anion gap [Moles/Vol] 12 mmol/L 9 - 17 mmol/L [place] AST [Catalytic activity/Vol] 15 U/L <32 [place] Bilirubin Ql (U) 0.25 mg/dL Low 0.3 - 1.2 mg/dL [place] Bun/Cre Ratio NOT REPORTED [place] Calcium [Mass/Vol] 8.6 mg/dL 8.6 - 10. 4 mg/dL [place] Chloride [Moles/Vol] 103 mmol/L 98 - 10 7 mmol/L [place] CO2 [Moles/Vol] 23 mmol/L 20 - 31 mmol/L [place] Creatinine [Mass/Vol] 1.27 mg/dL High 0.5 - 0.9 mg/dL [place] GFR 49 mL/min Low >60 [place] GFR Non- 41 mL/min Low >60 [place] GFR/1.73 sq M predicted among non-blacks MDRD (S/P/Bld) [Vol rate/Area] NOT REPORTED [place] GFR/1.73 sq M predicted among non-blacks MDRD (S/P/Bld) [Vol rate/Area] [place] Comment on above: Average GFR for 70 o r more years old: 75 mL/min/1.73sq m Chronic Kidney Disease: <60 mL/min/1.73sq m Kidney failure: <15 mL/min/1.73sq m eGFR calculated using average adult body mass. Additional eGFR calculator available at: http://www.Veebow/multiple_crcl_2012.htm Glucose [Mass/Vol] 78 mg/dL 70 - 99 mg/dL [place] Interpretation and review of laboratory results Abnormal [place] Potassium [Moles/Vol] 4.3 mmol/L 3.7 - 5.3 mmol/L [place] Protein [Mass/Vol] 6.6 g/dL 6.4 - 8.3 g/dL [place] Sodium [Moles/Vol] 138 mmol/L 135 - 144 mmol/L [place] Urea nitrogen [Mass/Vol] 20 mg/dL 8 - 23 mg/dL [place] Hematologyon 12-15-2018 INR Coag (Bld) [Relative time] NOT REPORTED [place] Ionized Calciumon 12-15-2018 Calcium [Mass/Vol] 1.21 mmol/L 1.13 - 1.33 mmol/L [place] Lactate, Sepsison 12-15-2018 Lactic Acid,Sep Wbld 1.1 mmol/L Normal 0.5-1.9 [facility] Comment on above: Performed By: #### L ACDS #### [facility] [address] [place] [address] [phone] Scrap Bunch Maker: Robin Mahoney MD Lactic Acid, Sepsis NOT REPORTED Normal 0.5-1.9 [facility] Comment on above: Performed By: #### L ACDS #### [facility] [address] [place] [address] [phone] Scrap Bunch Maker: Robin Mahoney MD Lactic Acid, Sepsis NOT REPORTED 0.5 - 1. 9 mmol/L [place] Lactic Acid, Sepsis, Whole Blood 1.1 mmol/L 0.5 - 1.9 mmol/L [place] Magnesiumon 12-15-2018 Magnesium [Mass/Vol] 2.2 mg/dL Normal 1.6-2.6 [facility] Comment on above: Performed By: #### C BC, PT, CMPX, MG, ANNIE, VNCR, IOCAL #### [facility] [address] [place], [place] [phone] Scrap Bunch Maker: Robin Mahoney MD Magnesium [Mass/Vol] 2.2 mg/dL 1.6 - 2 .6 mg/dL [place] PTon 12-15-2018 INR Coag (PPP) [Relative time] 1.0 {INR} Normal [facility] Comment on above: Result Comment: Therapeutic Range: Moderate Anticoagulant Intensity: INR = 2.0-3.0 High Anticoagulant Intensity: INR = 2.5-3.5 Performed By: #### C BC, PT, CMPX, MG, ANNIE, VNCR, IOCAL #### [facility] [address] [place] [address] Scrap Bunch Maker: Robin Mahoney MD PT Coag (PPP) [Time] 10.9 s Normal 9.0-12.0 [facility] Comment on above: Performed By: #### C BC, PT, CMPX, MG, ANNIE, VNCR, IOCAL #### [facility] [employer] [facility] [place], [place] [id number] Scrap Bunch Maker: Robin Mahoney MD Phosphoruson 12-15-2018 Phosphate [Mass/Vol] 3.5 mg/dL 2.6 - 4 .5 mg/dL [place], [place] Phosphorus, Inorg.on 019 Phosphorus, Inorg. 3.5 mg/dL Normal 2.6-4.5 [facility] Comment on above: Performed By: #### C BC, PT, CMPX, MG, ANNIE, VNCR, IOCAL #### [facility] [employer] [address] [place] [address] [id number] Scrap Bunch Maker: Robin Mahoney MD Protime-INRon 12-15-2018 INR Coag (PPP) [Relative time] 1.0 {INR} [place], [place] Comment on above: Therapeutic Range: Moderate Anticoagulant Intensity: INR = 2.0-3.0 High Anticoagulant Intensity: INR = 2.5-3.5 PT Coag (PPP) [Time] 10.9 s [place], [place] Sedimentation Rateon 019 Sedimentation Rate 70 mm High 0-20 [facility] Comment on above: Performed By: #### C BC, PT, CMPX, MG, ANNIE, VNCR, IOCAL #### [facility] [place], [place] [address] Scrap Bunch Maker: Robin Mahoney MD Interpretation and review of laboratory results Abnormal [place], [place] Sed Rate 70 mm High 0 - 20 mm [place] VANCOMYCIN, RANDOMon 019 INR Coag (Bld) [Relative time] 7.4 ug/mL [place], [place] Comment on above: Higher trough serum vancomycin concentrations of 15-20 ug/mL are recommended for complicated infections such as bacteremia, endocarditis, osteomyelitis, meningitis, and hospital acquired pneumonia. Vancomycin,Randomon 12-16-19 19 Vancomycin 7.4 ug/mL Normal [facility] Comment on above: Result Comment: High er trough serum vancomycin concentrations of 15-20 ug/mL are recommended for complicated infections such as bacteremia, endocarditis, osteomyelitis, meningitis, and hospital acquired pneumonia. Performed By: #### C BC, PT, CMPX, MG, ANNIE, VNCR, IOCAL #### [address] [place] [address] Scrap Bunch Maker: Robin Mahoney MD Date last dose, NOT REPORTED Normal [facility] Comment on above: Performed By: #### C BC, PT, CMPX, MG, ANNIE, VNCR, IOCAL #### [address] [place] [address] Scrap Bunch Maker: Robin Mahoney MD Dose amount, NOT REPORTED Normal [facility] Comment on above: Performed By: #### C BC, PT, CMPX, MG, ANNIE, VNCR, IOCAL #### [address] [place] [address] Scrap Bunch Maker: Robin Mahoney MD Time last dose, NOT REPORTED Normal [facility] Comment on above: Performed By: #### C BC, PT, CMPX, MG, ANNIE, VNCR, IOCAL #### [address] [place] [address] Scrap Bunch Maker: Robin Mahoney MD XR KNEE LEFT (3 VIEWS)on XR KNEE LEFT (3 VIEWS) EXAMINATION: THREE XRAY VIEWS OF THE LEFT KNEE 12/15/2018 3:55 pm COMPARISON: None. HISTORY: ORDERING SYSTEM PROVIDED HISTORY: infection TECHNOLOGIST PROVIDED HISTORY: infection Reason for Exam: infection FINDINGS: There is a large soft tissue wound along the medial aspect of the left knee. There are several adjacent lucencies concerning for soft tissue gas. The sequelae of left knee arthroplasty is noted. There is no disruption of the orthopedic hardware identified. No lucency is identified surrounding the orthopedic hardware. There is no joint effusion evident. IMPRESSION: Marked soft tissue swelling with large wound along the medial aspect of the left knee. There are several adjacent lucencies within the soft tissue concerning for soft tissue gas. No radiographic findings to suggest acute osteomyelitis. Interpreted by: Jorge Wang MD Signed by: Jorge Wang MD 12/15/[address] [facility] EXAMINATION: THREE X RAY VIEWS OF THE LEFT KNEE 12/15/2018 3:55 pm COMPARISON: None. HISTORY: ORDERING SYSTEM PROVIDED HISTORY: infection TECHNOLOGIST PROVIDED HISTORY: infection Reason for Exam: infection FINDINGS: There is a large soft tissue wound along the medial aspect of the left knee. There are several adjacent lucencies concerning for soft tissue gas. The sequelae of left knee arthroplasty is noted. There is no disruption of the orthopedic hardware identified. No lucency is identified surrounding the orthopedic hardware. There is no joint effusion evident. [place], [place], [facility] Incoming R adiant Results From [employer]Formerly [employer]) - 12/15/2018 5:02 PM EDT EXAMINATION: THREE XRAY VIEWS OF THE LEFT KNEE 12/15/2018 3:55 pm COMPARISON: None. HISTORY: ORDERING SYSTEM PROVIDED HISTORY: infection TECHNOLOGIST PROVIDED HISTORY: infection Reason for Exam: infection FINDINGS: There is a large soft tissue wound along the medial aspect of the left knee. There are several adjacent lucencies concerning for soft tissue gas. The sequelae of left knee arthroplasty is noted. There is no disruption of the orthopedic hardware identified. No lucency is identified surrounding the orthopedic hardware. There is no joint effusion evident. IMPRESSION: Marked soft tissue swelling with large wound along the medial aspect of the left knee. There are several adjacent lucencies within the soft tissue concerning for soft tissue gas. No radiographic findings to suggest acute osteomyelitis. [place], [place] Marked soft tissue swelling with large wound along the medial aspect of the left knee. There are several adjacent lucencies within the soft tissue concerning for soft tissue gas. No radiographic findings to suggest acute osteomyelitis. [facility] H[facility]US LEFTon 08-22-2017 [facility]ERUS LEFT [facility] [address] [place] [address] Dione ent Name: CARLY MARCELINO : 1940Sex: FAge: Race: WhiteMRN: [id number]. Location: 84Patient Status: OVisit #: [id number] Date: 08/22/2017 12:10:00 PMCompleted Date: 08/22/2017 12:43 PMRequesting Provider: ANIKET GUDINO Attending Provider: ANIKET GUDINO Report Copy To: Signs & Symptoms: S49.92XA Unsp injury of left shoulder and upper arm, init encntr H10Eewiisr: AthenaComments: , Views (X-RAY, HUMERUS): AP, Lateral , Views (X-RAY, HUMERUS): AP, Lateral , , , Ordering Provider - ANIKET GUDINO , Exam: HUMERUS LEFTAccession #: [id number] ===HUMERUS LEFT, HUMERUS LEFT 08/22/2017 11:26 AM EDT SIGNS AND SYMPTOMS: S49.92XA Unsp injury of left shoulder and upper arm, init encntr I10 TECHNOLOGIST COMMENTS: ortho f/u for left upper arm (accession [id number]), repeat left humerus xrays out of splint (accession [id number]) QUESTION FOR THE RADIOLOGIST: , Views (X-RAY, HUMERUS): AP, Lateral , Views (X-RAY, HUMERUS): AP, Lateral , , , Ordering Provider - ANIKET GUDINO , PROTOCOL: AP(PA) and Lateral views were obtained. COMPARISON: August 07, 2017 FINDINGS: Soft tissues:Overlying splint has been exchanged on the 1124 hour film and then removed on the 12:30 film Bones:Posteriorly offset and slightly angulated comminuted distal humeral shaft fracturewith still limited healing responseOn the 1230 hours film there may be slightly greater posterior offset and varus angular deformity with some adjacent edema Joints:Reverse TSA in good alignment similar to priorElbow intact IMPRESSION: Distal humeral shaft fracture and displaced alignment as above with limited healing Electronically signed by:Radames Johnson. Transcribed by: [email or web address], User Resident: Electronically Signed by: RADAMES JOHNSON @ 08/22/2017 01:06 PM Normal [facility] Comment on above: Order Comment: , Amos ws (X-RAY, HUMERUS): AP, Lateral , Views (X-RAY, HUMERUS): AP, Lateral , , , Ordering Provider - ANIKET GUDINO , HUMERUS LEFT [facility] [address] [place] [address] Dione ent Name: CARLY MARCELINO : 1940Sex: FAge: Race: WhiteMRN: [id number]. Location: 84Patient Status: Date: 08/22/2017 11:20:00 AMCompleted Date: 08/22/2017 11:26 AMRequesting Provider: ANIKET GUDINO Attending Provider: Report Copy To: Signs & Symptoms: S49.92XA Unsp injury of left shoulder and upper arm, init encntr T17Jcntbew: AthenaComments: , Views (X-RAY, HUMERUS): AP, Lateral , Views (X-RAY, HUMERUS): AP, Lateral , , , Ordering Provider - ANIKET GUDINO , Exam: HUMERUS LEFTAccession #: [id number] ===HUMERUS LEFT, HUMERUS LEFT 08/22/2017 11:26 AM EDT SIGNS AND SYMPTOMS: S49.92XA Unsp injury of left shoulder and upper arm, init encntr I10 TECHNOLOGIST COMMENTS: ortho f/u for left upper arm (accession [id number]), repeat left humerus xrays out of splint (accession [id number]) QUESTION FOR THE RADIOLOGIST: , Views (X-RAY, HUMERUS): AP, Lateral , Views (X-RAY, HUMERUS): AP, Lateral , , , Ordering Provider - ANIKET GUDINO , PROTOCOL: AP(PA) and Lateral views were obtained. COMPARISON: August 07, 2017 FINDINGS: Soft tissues:Overlying splint has been exchanged on the 1124 hour film and then removed on the 12:30 film Bones:Posteriorly offset and slightly angulated comminuted distal humeral shaft fracturewith still limited healing responseOn the 1230 hours film there may be slightly greater posterior offset and varus angular deformity with some adjacent edema Joints:Reverse TSA in good alignment similar to priorElbow intact IMPRESSION: Distal humeral shaft fracture and displaced alignment as above with limited healing Electronically signed by:Radames Johnson. Transcribed by: [email or web address], User Resident: Electronically Signed by: RADAMES JOHNSON @ 08/22/2017 01:06 PM Normal [facility] Comment on above: Order Comment: , Amos ws (X-RAY, HUMERUS): AP, Lateral , Views (X-RAY, HUMERUS): AP, Lateral , , , Ordering Provider - ANIKET GUDINO , Discharge Summaryon 08-12-19 18 Discharge Summary MR[id number] Admitted: 08/07/2017 Discharged: 08/10/2017 Date of : 1940 Physician: Andres Walker M.D. DISCHARGE SUMMARYDISCHARGING PHYSICIAN: Andres Walker M.D.PRIMARY CARE PHYSICIAN: Hardeep Gracia Magaly, D.O.PRIMARY DIAGNOSES:1. Left humerus fracture secondary to fall.2. T10 fracture acute to subacute cough of unknown etiology.3. Hypertension, controlled.SECONDARY DIAGNOSES:1. Left lower extremity deep venous thrombosis of unknown etiology, diagnosed in early July.2. Asthma, well controlled.3. Seizure disorder.4. Mild hyponatremia, resolved.5. Left eye blindness.CONSULTS: Orthopedics.HOSPITAL COURSE: This is a 77-year-old female admitted to [facility] secondaryto left humerus fracture due to mechanical fall. Ortho was consulted. Anx-ray was ordered and they decided to put cast and sling and treatedconservatively. Her left upper extremity not weightbearing. MRI of thelumbar spine was also done, revealed degenerative changes. CT scan of thespine was also done, revealed a T10 fracture. MRI of the spine revealed aT10 fracture at the anterior aspect with a small hematoma or fluid.Orthopedist decided that it is non-operatable and continue withconservative treatment. Physical PT and OT was consulted. Theyrecommended extended care facility and rehab, but she refused to go torehab, decided to go home with PT/OT. Her pain is well controlled withPercocet 1-2 tablets every 4 hours.DISCHARGE DISPOSITION: Home in stable medical condition. Pain wellcontrolled.DISCHARGE MEDICATIONS:1. Baclofen 5 mg daily.2. Neurontin 300 mg 3 times daily.3. Magnesium oxide 400 mg once daily.4. Toprol-XL 50 mg once daily.5. Multivitamin tablet once daily.6. Colby-3 fatty acids 1000 mg once daily.7. Percocet 5/325 mg tablet 1-2 tablets every 4 hours as needed.8. Xarelto 20 mg once daily in the evening.9. Valsartan 160 mg-hydrochlorothiazide 12.5 mg 1 tablet once daily.10. Accolate 20 mg twice daily.11. Zyrtec 10 mg once daily as needed.DISCHARGE INSTRUCTIONS:1. She was instructed to follow up with primary care physician, Dr. Mckenzie in 1 week after discharge.2. Follow up with Dr. Gudino, Saul trauma within 1 week.3. Follow up with Dr. Hathaway, [facility] Spine within 2 weeks.4. Left upper extremity sling nonweightbearing, left upper extremity. She was also provided a script with a bedside commode and gabriel walker as recommended by the PT/OT.Time spent for discharge summary and coordination of care 45 minutes.Electronically Signed by:Andres Walker M.D. 08/16/2017 12:08 A Andres Walker M.D. I personally saw this patient on the day of the encounter, performed thekey portion(s) of the service and participated in the management andconfirm the resident's documentation. Please note there may be anadditional personal documentation from me. Date Dict: 08/10/2017/03:07 P/Jeri Hardin Trans: 08/11/2017 05:33 A/Nena_JN:[id number] Normal [facility] BASIC METABOLIC PANELon 06-0 Calcium 8.8 mg/dL Normal 8.6-10.3 [facility] Comment on above: Order Comment: No: D o not add to previous draw Performed By: #### 0 007, [id number] ####[facility] Chloride 98 mmol/L Normal 98-107 [facility] Comment on above: Order Comment: No: D o not add to previous draw Performed By: #### 0 007, [id number] ####[facility] [place] [address], [facility] CO2 31 mmol/L Normal 21-31 [facility] Comment on above: Order Comment: No: D o not add to previous draw Performed By: #### 0 0071, [id number] ####[place] [id number] [address] Creatinine 0.68 mg/dL Normal 0.60-1.20 [facility] Comment on above: Order Comment: No: D o not add to previous draw Performed By: #### 0 0071, [id number] ####[facility] [place] [address], [facility] eGFR (black) mL/min/{1.73_m2} Normal >60 [facility] Comment on above: Order Comment: No: D o not add to previous draw Result Comment: Calc ulation may not be valid for patients over 70 years Performed By: #### 0 70, [id number] ####[facility] [place] [address], [facility] eGFR (non-black) mL/min/{1.73_m2} Normal >60 [facility] Comment on above: Order Comment: No: D o not add to previous draw Result Comment: Calc ulation may not be valid for patients over 70 years Performed By: #### 0 70, ####[facility] [facility] [place] [address], [facility] Glucose mass conc 112 mg/dL High 70-100 [facility] Comment on above: Order Comment: No: D o not add to previous draw Performed By: #### 0 70, ####[facility] [facility] [place] [address], [facility] Potassium molar conc 3.9 mmol/L Normal 3.5-5.1 [facility] Comment on above: Order Comment: No: D o not add to previous draw Performed By: #### 0 70, ####[facility] [facility] [place] [address], [facility] Sodium 133 mmol/L Low 136-145 [facility] Comment on above: Order Comment: No: D o not add to previous draw Performed By: #### 0 70, ####[facility] [facility] [place] [address], [facility] Urea nitrogen 13 mg/dL Normal 7-25 [facility] Comment on above: Order Comment: No: D o not add to previous draw Performed By: #### 0 70, ####[facility]3000 [facility].[address] CBC COMPLETE BLOOD COUNTon 0 08-10-2017 Erythrocyte distribution width Auto Ratio (RBC) 14.3 % Normal 11.5-15.0 [facility] Comment on above: Order Comment: No: D o not add to previous draw Performed By: #### 0 70, ####[facility] [facility] Erythrocytes (RBC) 3.32 10*6/uL Low 3.80-5.00 [facility] Comment on above: Order Comment: No: D o not add to previous draw Performed By: #### 0 70, ####[facility] [facility] Erythrocytes (RBC) 0 % Normal 0-0 [facility] Comment on above: Order Comment: No: D o not add to previous draw Performed By: #### 0 70, ####[facility]3000 [facility].[address] Hematocrit (HCT) 29.6 % Low 36.0-45.0 [facility] Comment on above: Order Comment: No: D o not add to previous draw Performed By: #### 0 70, ####[facility] [facility] Hemoglobin mass conc (Bld) 9.6 g/dL Low 12.0-15.0 [facility] Comment on above: Order Comment: No: D o not add to previous draw Performed By: #### 0 70, ####[facility]3000 [facility].[address] MCH 28.9 pg Normal 27.0-33.0 [facility] Comment on above: Order Comment: No: D o not add to previous draw Performed By: #### 0 70, ####[facility] MCHC mass conc (RBC) 32.4 g/dL Normal 32.0-35.0 [facility] Comment on above: Order Comment: No: D o not add to previous draw Performed By: #### 0 70, ####[facility]3000 [facility].[address] MCV 89.2 fL Normal 82.0-98.0 [facility] Comment on above: Order Comment: No: D o not add to previous draw Performed By: #### 0 70, ####[facility]3000 [facility].[address] PLAT CNT 167 10*3/uL Normal 150-400 [facility] Comment on above: Order Comment: No: D o not add to previous draw Performed By: #### 0 70, ####[facility] WBC (Leukocytes) 6.86 10*3/uL Normal 4.00-10.60 [facility] Comment on above: Order Comment: No: D o not add to previous draw Performed By: #### 0 70, ####[facility] [facility].[address] BASIC METABOLIC PANELon 05-3 Calcium 8.2 mg/dL Low 8.6-10.3 [facility] Comment on above: Order Comment: No: D o not add to previous draw Performed By: #### 0 70, ####[facility] [facility].[address] Chloride 101 mmol/L Normal 98-107 [facility] Comment on above: Order Comment: No: D o not add to previous draw Performed By: #### 0 70, ####[facility] [facility] [place] [address], [facility] CO2 30 mmol/L Normal 21-31 [facility] Comment on above: Order Comment: No: D o not add to previous draw Performed By: #### 0 70, [id number] ####[facility] [place] [address], [facility] Creatinine 0.78 mg/dL Normal 0.60-1.20 [facility] Comment on above: Order Comment: No: D o not add to previous draw Performed By: #### 0 70, ####[facility] [facility].[address] eGFR (black) mL/min/{1.73_m2} Normal >60 [facility] Comment on above: Order Comment: No: D o not add to previous draw Result Comment: Calc ulation may not be valid for patients over 70 years Performed By: #### 0 70, ####[facility] [facility].[address] eGFR (non-black) mL/min/{1.73_m2} Normal >60 [facility] Comment on above: Order Comment: No: D o not add to previous draw Result Comment: Calc ulation may not be valid for patients over 70 years Performed By: #### 0 70, ####[facility] [facility] [place] [address], [facility] Glucose mass conc 99 mg/dL Normal 70-100 [facility] Comment on above: Order Comment: No: D o not add to previous draw Performed By: #### 0 70, [id number] ####[place] [address] [facility] [place] [address], [facility] Potassium molar conc 3.7 mmol/L Normal 3.5-5.1 [facility] Comment on above: Order Comment: No: D o not add to previous draw Performed By: #### 0 70, ####[facility] Sodium 133 mmol/L Low 136-145 [facility] Comment on above: Order Comment: No: D o not add to previous draw Performed By: #### 0 70, ####[facility] Urea nitrogen 15 mg/dL Normal 7-25 [facility] Comment on above: Order Comment: No: D o not add to previous draw Performed By: #### 0 70, ####[facility] [facility] CBC COMPLETE BLOOD COUNTon 0 08-09-2017 Erythrocyte distribution width Auto Ratio (RBC) 14.4 % Normal 11.5-15.0 [facility] Comment on above: Order Comment: No: D o not add to previous draw Performed By: #### 0 70, ####[facility] [facility] Erythrocytes (RBC) 3.43 10*6/uL Low 3.80-5.00 [facility] Comment on above: Order Comment: No: D o not add to previous draw Performed By: #### 0 70, ####[facility] [facility] Erythrocytes (RBC) 0 % Normal 0-0 [facility] Comment on above: Order Comment: No: D o not add to previous draw Performed By: #### 0 70, ####[facility] Hematocrit (HCT) 31.0 % Low 36.0-45.0 [facility] Comment on above: Order Comment: No: D o not add to previous draw Performed By: #### 0 70, ####[facility] [facility] Hemoglobin mass conc (Bld) 10.0 g/dL Low 12.0-15.0 [facility] Comment on above: Order Comment: No: D o not add to previous draw Performed By: #### 0 70, ####[facility]3000 [facility].[address] MCH 29.2 pg Normal 27.0-33.0 [facility] Comment on above: Order Comment: No: D o not add to previous draw Performed By: #### 0 70, ####[place] [id number] [facility].[address] MCHC mass conc (RBC) 32.3 g/dL Normal 32.0-35.0 [facility] Comment on above: Order Comment: No: D o not add to previous draw Performed By: #### 0 70, ####[address] MCV 90.4 fL Normal 82.0-98.0 [facility] Comment on above: Order Comment: No: D o not add to previous draw Performed By: #### 0 70, ####[address] PLAT CNT 158 10*3/uL Normal 150-400 [facility] Comment on above: Order Comment: No: D o not add to previous draw Performed By: #### 0 70, ####[place] [id number] [facility].[address] WBC (Leukocytes) 6.84 10*3/uL Normal 4.00-10.60 [facility] Comment on above: Order Comment: No: D o not add to previous draw Performed By: #### 0 70, ####[facility] [facility] [place] [address], [place] PORTABLE WRIST LEFT 2 [facility] 08-09-2017 PORTABLE WRIST LEFT 2 [address] [facility] [address] [place] [address] Dione ent Name: CARLY MARCELINO : 1940Sex: FAge: Race: WhiteMRN: [id number]. Location: [id number] Status: IVisit #: [id number] Date: 08/09/2017 12:05:00 PMCompleted Date: 08/09/2017 03:26 PMRequesting Provider: MAGDA POSEY Attending Provider: ANDRES GONZALEZ Report Copy To: Signs & Symptoms: Pain ( specify Location)History: Patient history not availableComments: R/O FXExam: PORTABLE WRIST LEFT 2 VWSAccession #: [id number] ===PORTABLE WRIST LEFT 2 S 08/09/2017 3:26 PM EDT SIGNS AND SYMPTOMS: Pain ( specify Location) TECHNOLOGIST COMMENTS: Left wrist pain post fall. Known humerus fractuer QUESTION FOR THE RADIOLOGIST: R/O FX PROTOCOL: AP(PA) and Lateral views were obtained. COMPARISON: None FINDINGS: Soft tissues:SwellingPresumed old metallic foreign body along the dorsal hand just radial to the index finger metacarpal Bones:No acute bony abnormality Joints:Scattered osteoarthritis particularly severe at the thumb CMC joint with the thumb metacarpal impacted into the trapeziumLikely old thumb ligament injury IMPRESSION: * No definite fracture* Distortion of the thumb CMC joint is likely a function of severe chronic osteoarthritis Electronically signed by:Radames Johnson. Transcribed by: [email or web address], User Resident: Electronically Signed by: RADAMES JOHNSON @ 08/09/2017 03:42 PM Normal [facility] Comment on above: Order Comment: R/O F X BASIC METABOLIC PANELon 07-12 Calcium 8.6 mg/dL Normal 8.6-10.3 [facility] Comment on above: Order Comment: No: D o not add to previous draw Performed By: #### 0 0071, [id number] ####[facility] [place] [address], [facility] Chloride 101 mmol/L Normal 98-107 [facility] Comment on above: Order Comment: No: D o not add to previous draw Performed By: #### 0 0071, 30578 ####[facility] [place] [address], [facility] CO2 30 mmol/L Normal 21-31 [facility] Comment on above: Order Comment: No: D o not add to previous draw Performed By: #### 0 0071, 64554 ####[facility] [place] [address], [facility] Creatinine 0.77 mg/dL Normal 0.60-1.20 [facility] Comment on above: Order Comment: No: D o not add to previous draw Performed By: #### 0 0071, 48464 ####[facility] [place] [address], [facility] eGFR (black) mL/min/{1.73_m2} Normal >60 [facility] Comment on above: Order Comment: No: D o not add to previous draw Result Comment: Calc ulation may not be valid for patients over 70 years Performed By: #### 0 0071, 15758 ####[facility] [place] [address], [facility] eGFR (non-black) mL/min/{1.73_m2} Normal >60 [facility] Comment on above: Order Comment: No: D o not add to previous draw Result Comment: Calc ulation may not be valid for patients over 70 years Performed By: #### 0 70, 78312 ####[facility] Glucose mass conc 91 mg/dL Normal 70-100 [facility] Comment on above: Order Comment: No: D o not add to previous draw Performed By: #### 0 70, 56747 ####[facility] Potassium molar conc 3.9 mmol/L Normal 3.5-5.1 [facility] Comment on above: Order Comment: No: D o not add to previous draw Performed By: #### 0 70, ####[facility] [facility] Sodium 136 mmol/L Normal 136-145 [facility] Comment on above: Order Comment: No: D o not add to previous draw Performed By: #### 0 70, ####[facility]3000 [facility].[address] Urea nitrogen 14 mg/dL Normal 7-25 [facility] Comment on above: Order Comment: No: D o not add to previous draw Performed By: #### 0 70, 88248 ####[facility]3000 [facility].[address] CBC COMPLETE BLOOD COUNTon 0 08-08-2017 Erythrocyte distribution width Auto Ratio (RBC) 14.3 % Normal 11.5-15.0 [facility] Comment on above: Order Comment: No: D o not add to previous draw Performed By: #### 0 70, 70785 ####[facility] Erythrocytes (RBC) 3.66 10*6/uL Low 3.80-5.00 [facility] Comment on above: Order Comment: No: D o not add to previous draw Performed By: #### 0 70, ####[facility]3000 [facility].[address] Erythrocytes (RBC) 0 % Normal 0-0 [facility] Comment on above: Order Comment: No: D o not add to previous draw Performed By: #### 0 70, ####[facility] [facility] Hematocrit (HCT) 32.6 % Low 36.0-45.0 [facility] Comment on above: Order Comment: No: D o not add to previous draw Performed By: #### 0 70, ####[facility] Hemoglobin mass conc (Bld) 10.7 g/dL Low 12.0-15.0 [facility] Comment on above: Order Comment: No: D o not add to previous draw Performed By: #### 0 70, ####[facility]3000 [facility].[address] MCH 29.2 pg Normal 27.0-33.0 [facility] Comment on above: Order Comment: No: D o not add to previous draw Performed By: #### 0 70, ####[facility]3000 [facility].[address] MCHC mass conc (RBC) 32.8 g/dL Normal 32.0-35.0 [facility] Comment on above: Order Comment: No: D o not add to previous draw Performed By: #### 0 70, ####[facility] MCV 89.1 fL Normal 82.0-98.0 [facility] Comment on above: Order Comment: No: D o not add to previous draw Performed By: #### 0 0071, 27645 ####[address] PLAT CNT 163 10*3/uL Normal 150-400 [facility] Comment on above: Order Comment: No: D o not add to previous draw Performed By: #### 0 0071, 17761 ####[address] WBC (Leukocytes) 6.43 10*3/uL Normal 4.00-10.60 [facility] Comment on above: Order Comment: No: D o not add to previous draw Performed By: #### 0 0071, 91055 ####[address] MRI THORACIC SPINE WO CONTRA STon 08-08-2017 MRI THORACIC SPINE [facility]AST [facility] [address] [place], [place] [address] Dione ent Name: CARLY MARCELINO : 1940Sex: FAge: Race: WhiteMRN: [id number]. Location: [id number] Status: IVisit #: [id number] Date: 08/08/2017 5:45:00 AMCompleted Date: 08/08/2017 05:12 PMRequesting Provider: ANIKET BENAVIDES Attending Provider: ANDRES GONZALEZ Report Copy To: Signs & Symptoms: TraumaHistory: Patient history not availableComments: R/O FractureExam: MRI THORACIC SPINE WO CONTRASTAccession #: [id number] ===MRI THORACIC SPINE WO CONTRAST 08/08/2017 5:12 PM EDT SIGNS AND SYMPTOMS: Trauma TECHNOLOGIST COMMENTS: Ortho transfer from [facility] Patient fell and landed on left side. Patient has known left humerus fx and T10fx. Patient c/o mid to low back pain QUESTION FOR THE RADIOLOGIST: R/O Fracture PROTOCOL: The following pulse sequences were utilized when imaging the thoracic spine: localizer, sagittal T2, sagittal T1, sagittal STIR, and axial T2. COMPARISON: CT thoracic spine August 07, 2017 FINDINGS: The bones of the thoracic spine are in anatomic alignment. There is preservation of vertebral body heights. Redemonstration of diffuse disc space narrowing with anterior bridging osteophytes. Again noted is a fracture line through the T10 vertebral body. Some increased signal within the fracture likely acute to subacute. Edema in the soft tissues anterior to the T10 and T11 levels likely represents some paraspinous hematoma associated with fracture. No definite tearing of the anterior longitudinal ligamentthe but may be slightly thickened and displaced anteriorly by the underlying fluid and suspected paraspinous hematoma. . No significant central canal or neural foraminal narrowing throughout the thoracic spine. Small focal disc bulge at T8-T9 IMPRESSION: * Fracture line through the T10 vertebral body. Acute to subacute.* High signal anterior to the T10 and T11 vertebral bodies likely represents some paraspinous hematoma associated with fracture. No definite disruption of the anterior longitudinal ligament but there appears to be some thickening in the ligament is displaced anteriorly by the underlying fluid/hematoma* Diffuse disc space narrowing with anterior bridging osteophytes suggesting diffuse idiopathic skeletal hyperostosis. Approved by:Ross Mittal on 08/09/2017 8:56 AM EDT. I, Alyssa Dwyer, have reviewed the images and report and concur with these findings. Electronically signed by:Alyssa Dwyer. Transcribed by: [email or web address], User Resident: ROSS MITTALElectronically Signed by: ALYSSA DWYER @ 08/09/2017 02:44 PMI personally read this/these film(s) with this resident Normal [facility] Comment on above: Order Comment: R/O F racture 3D CT LUMBAR SPINE WO CONTRA STon 08-07-[address] LUMBAR SPINE WO CONTRAST [facility] [address] [place] [address] Dione ent Name: CARLY MARCELINO : 1940Sex: FAge: Race: WhiteMRN: [id number]. Location: EMERPatient Status: IVisit #: [id number] Date: 08/07/2017 5:50:00 AMCompleted Date: 08/07/2017 06:15 AMRequesting Provider: ARTEM CHARLTON Attending Provider: ARTEM CHARLTON Report Copy To: Signs & Symptoms: Back Pain (specify level)History: Patient history not availableComments: R/O Fractures, If Other selected, state reason for examExam: 3D CT LUMBAR SPINE WO CONTRASTAccession #: [id number] ===3D CT LUMBAR SPINE WO CONTRAST 08/07/2017 6:15 AM EDT TECHNOLOGIST COMMENTS: Pt is transfer from outside hospital s/p fall. Pt states she was told she has T-10 fx. Pt unable to raise arms. QUESTION FOR RADIOLOGIST: R/O Fractures, If Other selected, state reason for exam PROTOCOL: Axial CT images of the spine were obtained without IV contrast. TECHNIQUE: Multi detector CT axial slices of the lumbar spine are obtained from the T10 vertebral body to the sacrum without IV contrast. Volumetric acquisition sagittal, coronal, and 3-D reconstructions were performed and reviewed on a separate workstation. Appropriate CT dose lowering techniques were utilized. COMPARISON: None FINDINGS: There is preservation of the vertebral body heights. There is significant disc space narrowing at L3-L4 and L4-L5 with some vacuum disc phenomenon. There is also some disc space narrowing at T12-L1 and L5-S1 with both anterior and posterior osteophyte formation. There is diffuse facet hypertrophy throughout the lumbar spine with approximately 6 mm anterolisthesis of L4 on L5 which is likely secondary to the facet hypertrophy and possible pars defect on the right side at L4-5. No fractures or dislocations are seen. Evidence of prior right-sided L5 laminotomy defect. The paraspinous soft tissues are within normal limits. The visualized lung parenchyma shows no acute abnormality. The visualized abdominal and pelvic viscera is unremarkable. Bilateral SI joint degenerative disease. Atherosclerotic calcifications of the abdominal aorta and its branches. 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 Approved by:Ross Mittal on 08/07/2017 7:51 AM EDT. I, Myrna Hernandez, have reviewed the images and report and concur with these findings. Electronically signed by:Myrna Hernandez. Transcribed by: [email or web address], User Resident: ROSS MITTALElectronically Signed by: MYRNA HERNANDEZ @ 08/07/2017 12:07 PMI personally read this/these film(s) with this resident Normal [facility] Comment on above: Order Comment: R/O F ractures, If Other selected, state reason for exam 3D [facility] [facility]ORACIC SPINE WO CONTRAST [facility] [address] [place] [address] Dione ent Name: CARLY MARCELINO : 1940Sex: FAge: Race: WhiteMRN: [id number]. Location: EMERPatient Status: IVisit #: [id number] Date: 08/07/2017 5:35:00 AMCompleted Date: 08/07/2017 06:15 AMRequesting Provider: ARTEM CHARLTON Attending Provider: ARTEM CHARLTON Report Copy To: Signs & Symptoms: FractureHistory: Patient history not availableComments: R/O FracturesExam: 3D CT THORACIC SPINE WO CONTRASTAccession #: [id number] ===3D CT THORACIC SPINE WO CONTRAST 08/07/2017 6:15 AM EDT TECHNOLOGIST COMMENTS: Pt is transfer from outside hospital s/p fall. Pt states she was told she has T-10 fx. Pt unable to raise arms. QUESTION FOR RADIOLOGIST: R/O Fractures PROTOCOL: Axial CT images of the spine were obtained without IV contrast. TECHNIQUE: Multi detector CT axial slices of the thoracic spine are obtained from the C7 to the L1 vertebral body without IV contrast. Volumetric acquisition sagittal, coronal, and 3-D reconstructions were performed and reviewed on a separate workstation. Appropriate CT dose lowering techniques were utilized. COMPARISON: None FINDINGS: There is preservation of the vertebral body heights. There is diffuse disc space narrowing. There are multiple anterior bridging osteophytes. There is an area of cortical irregularity and possible nondisplaced fracture line involving the anterior aspect of the T10 vertebral body. There is some increased sclerosis along the apparent fracture line. The alignment of the thoracic spine is normal. The paraspinous soft tissues are within normal limits. The visualized lung parenchyma shows no acute abnormality. The visualized upper abdominal viscera is unremarkable. There are atherosclerotic calcifications of the thoracic aorta and great vessels. Small deformities are calcified adenoma in the left upper lobe in axial image 101 with bilateral calcified lymph nodes in the hilum. There is also small calcified granulomas in the spleen. Vascular calcification is also visualized. Bilateral dependent atelectasis. IMPRESSION: * Area of cortical irregularity and apparent fracture line involving the anterior aspect of the T10 vertebral body. There is increased sclerosis along the apparent fracture line suggesting that this is not an acute injury.* Thoracic spine degenerative disease. Granulomatous disease as described above.* Multiple anterior bridging osteophytes suggesting diffuse idiopathic skeletal hyperostosis. Approved by:Ross Mittal on 08/07/2017 7:56 AM EDT. I, Myrna Hernandez, have reviewed the images and report and concur with these findings. Electronically signed by:Myrna Hernandez. Transcribed by: [email or web address], User Resident: ROSS MITTALElectronically Signed by: MYRNA HERNANDEZ @ 08/07/2017 11:58 AMI personally read this/these film(s) with this resident Normal [facility] Comment on above: Order Comment: R/O F ractures 3D CT UPPER EXTREMITY WO CON TRAST LEFTon 08-07-[address] UPPER EXTREMITY WO CONTRAST LEFT [facility] [address]ql[address] [place] [address] Dione ent Name: CARLY MARCELINO : 1940Sex: FAge: Race: WhiteMRN: [id number]. Location: EMERPatient Status: IVisit #: [id number] Date: 08/07/2017 5:50:00 AMCompleted Date: 08/07/2017 06:17 AMRequesting Provider: ARTEM CHARLTON Attending Provider: ARTEM CHARLTON Report Copy To: Signs & Symptoms: FractureHistory: Patient history not availableComments: R/O Fractures, left elbow CTExam: 3D CT UPPER EXTREMITY WO CONTRAST LEFTAccession #: [id number] ===3D CT UPPER EXTREMITY WO CONTRAST LEFT 08/07/2017 6:17 AM EDT SIGNS AND SYMPTOMS: Fracture TECHNOLOGIST COMMENTS:Pt is transfer from outside hospital s/p fall. Pt states she was told she has T-10 and left elbow fx's. Pre-op eval. QUESTION FOR THE RADIOLOGIST: R/O Fractures, left elbow CT PROTOCOL: Axial CT images of the extremity were obtained without IV contrast. TECHNIQUE: Multidetector CT axial slices of the left elbow were obtained without IV contrast. Multiplanar reformats, MIP, volume rendered 3-D images were generated on a separate workstation and reviewed to further define anatomy and possible pathology. COMPARISON: None. FINDINGS: Skeleton: Comminuted distal midshaft humeral fracture with posterior offset of the distal fragment by one half shaft width and foreshortening of about 1 cm. The elbow is intact. Minor irregularity along the coronoid tip of the elbow is chronic. Muscles: Intramuscular hemorrhage within the triceps which is not completely included on the study but the triceps is expanded by approximately 50% normal mass. Mild edema and hemorrhage also is seen within the brachialis muscle. Tendons: Intact as visualized. Neurovascular structures: Not well seen. Joint cavities: Small effusion in the elbow. IMPRESSION: 1. Comminuted distal midshaft humeral fracture with posterior offset of one half shaft width and foreshortening by 1 cm.2. Varus alignment of 30 degrees at the fracture.3. No elbow articular involvement.4. There may be some brachialis muscle interposition between the fracture fragments. Electronically signed by:Radames Johnson. Transcribed by: [email or web address], User Resident: Electronically Signed by: RADAMES JOHNSON @ 08/07/2017 11:27 AM Normal [facility] Comment on above: Order Comment: R/O F ractures, left elbow CT BASIC METABOLIC PANELon 05-2 Calcium 8.4 mg/dL Low 8.6-10.3 [facility] Comment on above: Performed By: #### 0 493, 87620 ####[facility] [facility] [place] [address], [facility] Chloride 103 mmol/L Normal 98-107 [facility] Comment on above: Performed By: #### 0 0071, 65870 ####[facility] [facility] [place] [address], [facility] CO2 28 mmol/L Normal 21-31 [facility] Comment on above: Performed By: #### 0 70, ####[facility] [place] [address], [facility] Creatinine 0.75 mg/dL Normal 0.60-1.20 [facility] Comment on above: Performed By: #### 0 70, ####[facility] [place] [address], [facility] eGFR (black) mL/min/{1.73_m2} Normal >60 [facility] Comment on above: Result Comment: Calc ulation may not be valid for patients over 70 years Performed By: #### 0 70, ####[facility] [place] [address], [facility] eGFR (non-black) mL/min/{1.73_m2} Normal >60 [facility] Comment on above: Result Comment: Calc ulation may not be valid for patients over 70 years Performed By: #### 0 70, ####[facility] [place] [address], [facility] Glucose mass conc 88 mg/dL Normal 70-100 [facility] Comment on above: Performed By: #### 0 70, ####[facility] [place] [address], [facility] Potassium molar conc 3.8 mmol/L Normal 3.5-5.1 [facility] Comment on above: Performed By: #### 0 70, ####[facility] [place] [address], [facility] Sodium 132 mmol/L Low 136-145 [facility] Comment on above: Performed By: #### 0 70, 28247 ####[facility] [place] [address], [facility] Urea nitrogen 12 mg/dL Normal 7-25 [facility] Comment on above: Performed By: #### 0 0071, 77225 ####[facility] CBC W/DIFFon 08-07-2017 ABS BASOPHILS 0.0 10*3/uL Normal 0.0-0.2 [facility] Comment on above: Performed By: #### 5 0103 ####[facility] [facility].[address] ABS IMM GRANS 0.0 10*3/uL Normal 0.0-0.2 [facility] Comment on above: Performed By: #### 5 0103 ####[facility]3000 [facility].[address] Basophils Auto #/vol (Bld) 0.4 % Normal 0.0-1.0 [facility] Comment on above: Performed By: #### 5 0103 ####[facility] Eosinophils 0.1 10*3/uL Normal 0.0-0.5 [facility] Comment on above: Performed By: #### 5 0103 ####[facility] Eosinophils/100 leukocytes 0.8 % Normal 0.0-6.0 [facility] Comment on above: Performed By: #### 5 0103 ####[facility] [facility].[address] Erythrocyte distribution width Auto Ratio (RBC) 14.3 % Normal 11.5-15.0 [facility] Comment on above: Performed By: #### 5 0103 ####[facility] [facility].[address] Erythrocytes (RBC) 0 % Normal 0-0 [facility] Comment on above: Performed By: #### 5 0103 ####[facility] Erythrocytes (RBC) 3.79 10*6/uL Low 3.80-5.00 [facility] Comment on above: Performed By: #### 5 0103 ####[facility] Hematocrit (HCT) 34.0 % Low 36.0-45.0 [facility] Comment on above: Performed By: #### 5 0103 ####[facility] Hemoglobin mass conc (Bld) 11.0 g/dL Low 12.0-15.0 [facility] Comment on above: Performed By: #### 102 ####[facility] IMMATURE GRANS 0.2 % Normal 0.0-1.0 [facility] Comment on above: Performed By: #### 102 ####[facility] Lymphocytes 1.3 10*3/uL Normal 1.2-4.0 [facility] Comment on above: Performed By: #### 102 ####[facility] Lymphocytes/100 leukocytes 15.6 % Low 20.0-45.0 [facility] Comment on above: Performed By: #### 5 3 ####[facility] MCH 29.0 pg Normal 27.0-33.0 [facility] Comment on above: Performed By: #### 3 ####[facility] MCHC mass conc (RBC) 32.4 g/dL Normal 32.0-35.0 [facility] Comment on above: Performed By: #### 5 0103 ####[facility] MCV 89.7 fL Normal 82.0-98.0 [facility] Comment on above: Performed By: #### 5 0103 ####[facility] Monocytes 0.6 10*3/uL Normal 0.1-1.0 [facility] Comment on above: Performed By: #### 5 0103 ####[facility] MONOS 7.6 % Normal 5.0-12.0 [facility] Comment on above: Performed By: #### 5 0103 ####[facility] Neutrophils 6.4 10*3/uL Normal 1.6-7.6 [facility] Comment on above: Performed By: #### 5 010 ####[facility] Neutrophils/100 leukocytes 75.4 % High 40.0-72.0 [facility] Comment on above: Performed By: #### 5 0103 ####[facility] PLAT CNT 173 10*3/uL Normal 150-400 [facility] Comment on above: Performed By: #### 5 3 ####[facility] WBC (Leukocytes) 8.44 10*3/uL Normal 4.00-10.60 [facility] Comment on above: Performed By: #### 5 102 ####[facility] [place], [place] [address] [place] [address] ELBOW LEFT 2 VWSon 8 ELBOW LEFT 2 VWS [facility] [address] [place] [address] Dione ent Name: CARLY MARCELINO : 1940Sex: FAge: Race: WhiteMRN: [id number]. Location: EMERPatient Status: IVisit #: [id number] Date: 08/07/2017 5:35:00 AMCompleted Date: 08/07/2017 06:30 AMRequesting Provider: ARTEM CHARLTON Attending Provider: ARTEM CHARLTON Report Copy To: Signs & Symptoms: AbrasionHistory: Patient history not availableComments: R/O FXExam: ELBOW LEFT 2 VWSAccession #: [id number] ===SHOULDER LEFT, PORTABLE HUMERUS LEFT, ELBOW LEFT 2 VWS, HUMERUS LEFT 08/07/2017 6:30 AM EDT SIGNS AND SYMPTOMS: Abrasion TECHNOLOGIST COMMENTS: s/p fall, pain distal humerus patient came from another hospital, patient in cast- unable to unbend arm, patient had CT scan of elbow here (accession [id number]), post reduction left humerus (accession [id number]), s/p fall, pain distal humerus patient came from another hospital, patient in cast- unable to unbend arm, patient had CT scan of elbow here (accession [id number]), s/p fall, pain distal humerus patient came from another hospital, patient in cast- unable to unbend arm, patient had CT scan of elbow here (accession [id number]) QUESTION FOR THE RADIOLOGIST: R/O FX PROTOCOL: AP,Grashey and Axillary views were obtained. (accession [id number]), AP(PA) and Lateral views were obtained. (accession [id number]), AP(PA) and Lateral views were obtained. (accession [id number]), AP(PA) and Lateral views were obtained. (accession [id number]) COMPARISON: None FINDINGS: Portable left humerus: Overlying splint has been exchanged with improved alignment following closed reduction Left shoulder: Reverse TSA is intact Left humerus: Comminuted oblique distal shaft humeral fracture with displacement, including varus angulation and posterior offset Left elbow: Intact IMPRESSION: Distal humeral fracture with subsequent closed reduction and splinting and improved alignment from prior Electronically signed by:Radames Johnson. Transcribed by: [email or web address], User Resident: Electronically Signed by: RADAMES JOHNSON @ 08/07/2017 12:40 PM Normal [facility] Comment on above: Order Comment: R/O F X HUMERUS LEFTon 08-07-2017 [facility] [address] [place] [address] Dione ent Name: CARLY MARCELINO : 1940Sex: FAge: Race: WhiteMRN: [id number]. Location: EMERPatient Status: IVisit #: [id number] Date: 08/07/2017 5:35:00 AMCompleted Date: 08/07/2017 06:30 AMRequesting Provider: ARTEM CHARLTON Attending Provider: ARTEM CHARLTON Report Copy To: Signs & Symptoms: AbrasionHistory: Patient history not availableComments: R/O FXExam: HUMERUS LEFTAccession #: [id number] ===SHOULDER LEFT, PORTABLE HUMERUS LEFT, ELBOW LEFT 2 VWS, HUMERUS LEFT 08/07/2017 6:30 AM EDT SIGNS AND SYMPTOMS: Abrasion TECHNOLOGIST COMMENTS: s/p fall, pain distal humerus patient came from another hospital, patient in cast- unable to unbend arm, patient had CT scan of elbow here (accession [id number]), post reduction left humerus (accession [id number]), s/p fall, pain distal humerus patient came from another hospital, patient in cast- unable to unbend arm, patient had CT scan of elbow here (accession [id number]), s/p fall, pain distal humerus patient came from another hospital, patient in cast- unable to unbend arm, patient had CT scan of elbow here (accession [id number]) QUESTION FOR THE RADIOLOGIST: R/O FX PROTOCOL: AP,Grashey and Axillary views were obtained. (accession [id number]), AP(PA) and Lateral views were obtained. (accession [id number]), AP(PA) and Lateral views were obtained. (accession [id number]), AP(PA) and Lateral views were obtained. (accession [id number]) COMPARISON: None FINDINGS: Portable left humerus: Overlying splint has been exchanged with improved alignment following closed reduction Left shoulder: Reverse TSA is intact Left humerus: Comminuted oblique distal shaft humeral fracture with displacement, including varus angulation and posterior offset Left elbow: Intact IMPRESSION: Distal humeral fracture with subsequent closed reduction and splinting and improved alignment from prior Electronically signed by:Radames Johnson. Transcribed by: [email or web address], User Resident: Electronically Signed by: RADAMES JOHNSON @ 08/07/2017 12:40 PM Normal [facility] Comment on above: Order Comment: R/O F X MRI LUMBAR SPINE WO CONTRAST on 08-07-2017 MRI LUMBAR SPINE WO CONTRAST [facility] [address] [place] [address] Dione ent Name: CARLY MARCELINO : 1940Sex: FAge: Race: WhiteMRN: [id number]. Location: [id number] Status: IVisit #: [id number] Date: 08/07/2017 8:05:00 AMCompleted Date: 08/07/2017 06:19 PMRequesting Provider: ANIKET BENAVIDES Attending Provider: HAIM HERNANDEZ Report Copy To: Signs & Symptoms: OtherHistory: Patient history not availableComments: R/O FractureExam: MRI LUMBAR SPINE WO CONTRASTAccession #: [id number] ===MRI LUMBAR SPINE WO CONTRAST 08/07/2017 6:19 PM EDT SIGNS AND SYMPTOMS: Other TECHNOLOGIST COMMENTS: Patient complains of mid to low back pain. Status post fall. QUESTION FOR THE RADIOLOGIST: R/O Fracture PROTOCOL: The following pulse sequences were utilized when imaging the lumbar spine: sagittal T2, sagittal T1, sagittal STIR, and axial T2. COMPARISON: CT lumbar spine August 07, 2017 FINDINGS: The bones of the lumbar spine are in anatomic alignment. There is preservation of vertebral body heights. The conus terminates at the T12-L1 intervertebral disc level. No epidural or paraspinous fluid collection is appreciated. At T12-L1: Circumferential disc bulge and bilateral facet hypertrophy resulting in mild narrowing of central canal and mild bilateral neural foraminal narrowing. There are some Modic type II endplate changes involving the superior endplate of L1. At L1-L2: There is a normal disc, central canal, and neural foramen. There is bilateral facet hypertrophy. At L2-L3: Broad-based disc bulge and bilateral facet hypertrophy resulting in mild narrowing the central canal and mild bilateral neural foraminal narrowing. Incidental hemangioma is seen at L3 on the left side. At L3-L4: Broad-based disc bulge and bilateral facet hypertrophy resulting in moderate narrowing of central canal and moderate bilateral neural foraminal narrowing. At L4-L5: Broad-based disc bulge and right greater than left bilateral facet hypertrophy resulting in moderate narrowing of central canal, moderate right neural foraminal narrowing, and mild left neural foraminal narrowing. Redemonstration of approximately 5 mm anterolisthesis of L4 on L5 which is likely secondary to facet degenerative disease. At L5-S1: Patient status post right-sided hemilaminotomy. There is a small central disc protrusion with mild narrowing the central canal. There is bilateral facet hypertrophy resulting in mild bilateral neural foraminal narrowing. Left renal cyst. IMPRESSION: Multilevel lumbar spine degenerative disease as detailed above. Approved by:Ross Mittal on 08/08/2017 8:46 AM EDT. I, Myrna Hernandez, have reviewed the images and report and concur with these findings. Electronically signed by:Myrna Hernandez. Transcribed by: [email or web address], User Resident: ROSS MITTALElectronically Signed by: MYRNA HERNANDEZ @ 08/08/2017 11:17 AMI personally read this/these film(s) with this resident Normal [facility] Comment on above: Order Comment: R/O F racture PORTABLE HUMERUS LEFTon 07-11 PORTABLE [facility] [address] [place] [address] Dione ent Name: CARLY MARCELINO : 1940Sex: FAge: Race: WhiteMRN: [id number]. Location: [id number] Status: IVisit #: [id number] Date: 08/07/2017 8:05:00 AMCompleted Date: 08/07/2017 09:04 AMRequesting Provider: ANIKET BENAVIDES Attending Provider: HAIM HERNANDEZ Report Copy To: Signs & Symptoms: Pain ( specify Location)History: Patient history not availableComments: R/O FX, post reductionExam: PORTABLE HUMERUS LEFTAccession #: [id number] ===SHOULDER LEFT, PORTABLE HUMERUS LEFT, ELBOW LEFT 2 VWS, HUMERUS LEFT 08/07/2017 6:30 AM EDT SIGNS AND SYMPTOMS: Abrasion TECHNOLOGIST COMMENTS: s/p fall, pain distal humerus patient came from another hospital, patient in cast- unable to unbend arm, patient had CT scan of elbow here (accession [id number]), post reduction left humerus (accession [id number]), s/p fall, pain distal humerus patient came from another hospital, patient in cast- unable to unbend arm, patient had CT scan of elbow here (accession [id number]), s/p fall, pain distal humerus patient came from another hospital, patient in cast- unable to unbend arm, patient had CT scan of elbow here (accession [id number]) QUESTION FOR THE RADIOLOGIST: R/O FX PROTOCOL: AP,Grashey and Axillary views were obtained. (accession [id number]), AP(PA) and Lateral views were obtained. (accession [id number]), AP(PA) and Lateral views were obtained. (accession [id number]), AP(PA) and Lateral views were obtained. (accession [id number]) COMPARISON: None FINDINGS: Portable left humerus: Overlying splint has been exchanged with improved alignment following closed reduction Left shoulder: Reverse TSA is intact Left humerus: Comminuted oblique distal shaft humeral fracture with displacement, including varus angulation and posterior offset Left elbow: Intact IMPRESSION: Distal humeral fracture with subsequent closed reduction and splinting and improved alignment from prior Electronically signed by:Radames Johnson. Transcribed by: [email or web address], User Resident: Electronically Signed by: RADAMES JOHNSON @ 08/07/2017 12:40 PM [place] [facility] Comment on above: Order Comment: R/O F X, post reduction PROTHROMBIN TIMEon 8 INR Coag RelTime (PPP) 1.13 {INR} Normal 0.91-1.16 [facility] Comment on above: Result Comment: [facility] RECOMM[facility] FOR WARFARIN THERAPY CONDITION INRPROPHYLAXIS OF VENOUS THROMBOSIS 2-3(HIGH-RISK SURGERY)TREATMENT OF VENOUS THROMBOSIS 2-3TREATMENT OF PULMONARY EMBOLISM 2-3PREVENTION OF SYSTEMIC EMBOLISM: 2-3 ACUTE MYOCARDIAL INFARCTION TISSUE HEART VALVES VALVULAR HEART DISEASE ATRIAL FIBRILLATION RECURRENT SYSTEMIC EMBOLISMMECHANICAL HEART VALVE 2.5-3.5 FROM: ORAL ANTICOAGULANTS. MECHANISM OF ACTION, CLINICALEFFECTIVENESS, AND OPTIMAL THERAPEUTIC RANGE. [id number];108:[id number]. Performed By: #### 5 [id number] ####[place] [id number] [address] Prothrombin time (PT) Coag time (PPP) 14.5 s Normal 12.3-14.8 [facility] Comment on above: Result Comment: ALL RESULTS MUST BE INTERPRETED WITH RESPECT TO BLOOD DRAWING ARTIFACTOR DILUTION ERROR OF ANTICOAGULANT AT THE TIME OF SAMPLING. Performed By: #### 5 [id number] ####[place] [id number] [address] SHOULDER LEFTon 08-07-2017 SHOULDER LEFT [facility] [address] [place] [address] Dione ent Name: CARLY MARCELINO : 1940Sex: FAge: Race: WhiteMRN: [id number]. Location: EMERPatient Status: IVisit #: [id number] Date: 08/07/2017 5:35:00 AMCompleted Date: 08/07/2017 06:30 AMRequesting Provider: ARTEM CHARLTON Attending Provider: ARTEM CHARLTON Report Copy To: Signs & Symptoms: AbrasionHistory: Patient history not availableComments: R/O FXExam: SHOULDER LEFTAccession #: [id number] ===SHOULDER LEFT, PORTABLE HUMERUS LEFT, ELBOW LEFT 2 VWS, HUMERUS LEFT 08/07/2017 6:30 AM EDT SIGNS AND SYMPTOMS: Abrasion TECHNOLOGIST COMMENTS: s/p fall, pain distal humerus patient came from another hospital, patient in cast- unable to unbend arm, patient had CT scan of elbow here (accession [id number]), post reduction left humerus (accession [id number]), s/p fall, pain distal humerus patient came from another hospital, patient in cast- unable to unbend arm, patient had CT scan of elbow here (accession [id number]), s/p fall, pain distal humerus patient came from another hospital, patient in cast- unable to unbend arm, patient had CT scan of elbow here (accession [id number]) QUESTION FOR THE RADIOLOGIST: R/O FX PROTOCOL: AP,Grashey and Axillary views were obtained. (accession [id number]), AP(PA) and Lateral views were obtained. (accession [id number]), AP(PA) and Lateral views were obtained. (accession [id number]), AP(PA) and Lateral views were obtained. (accession [id number]) COMPARISON: None FINDINGS: Portable left humerus: Overlying splint has been exchanged with improved alignment following closed reduction Left shoulder: Reverse TSA is intact Left humerus: Comminuted oblique distal shaft humeral fracture with displacement, including varus angulation and posterior offset Left elbow: Intact IMPRESSION: Distal humeral fracture with subsequent closed reduction and splinting and improved alignment from prior Electronically signed by:Radames Johnson. Transcribed by: [email or web address], User Resident: Electronically Signed by: RAADMES JOHSNON @ 08/07/2017 12:40 PM Normal [facility] Comment on above: Order Comment: R/O F X VITAMIN D 25-HYDROXYon 08-07 VITAMIN D 25-OH 33.3 ng/mL Normal 30.0-80.0 [facility] Comment on above: Result Comment: >80. 0 Toxicity possible Performed By: #### 0 [id number], [id number] ####[place] [id number] [address] No Panel Information [facility] Vital Signs Date Time Vital Sign Value Performing Clinician Facility 09-03-2023 15:49-0400 Body height 170.18 cm [facility] 09-03-2023 15:49-0400 Diastolic blood pressure 76 mm[Hg] [facility] 09-03-2023 15:49-0400 Heart rate 67 /min [facility] 09-03-2023 15:49-0400 Respiratory rate 20 /min [facility] 09-03-2023 15:49-0400 SaO2% (BldA) [Mass fraction] 95 % [facility] 09-03-2023 15:49-0400 Systolic blood pressure 140 mm[Hg] [facility] 08-30-2023 14:40-0400 Diastolic blood pressure 72 mm[Hg] Kymberly Cabrera APRN-WEB PROGRAMMER Work Phone: [facility] 08-30-2023 14:40-0400 Heart rate 70 /min Kymberly Cabrera APRN-WEB PROGRAMMER Work Phone: [facility] 08-30-2023 14:40-0400 Systolic blood pressure 154 mm[Hg] Kymberly Cabrera APRN-WEB PROGRAMMER Work Phone: [facility] 08-30-2023 14:37-0400 Body temperature 98.29 [degF] Kymberly Cabrera APRN-WEB PROGRAMMER Work Phone: [facility] 08-30-2023 14:37-0400 Respiratory rate 17 /min Kymberly Cabrera APRN-WEB PROGRAMMER Work Phone: [facility] 08-24-2023 13:44-0400 Body temperature 98.49 [degF] Ross Castorena MD Work Phone: [facility] 08-24-2023 13:44-0400 Diastolic blood pressure 64 mm[Hg] Ross Castorena MD Work Phone: [facility] 08-24-2023 13:44-0400 Heart rate 81 /min Ross Castorena MD Work Phone: [facility] 08-24-2023 13:44-0400 Respiratory rate 17 /min Ross Castorena MD Work Phone: [facility] 08-24-2023 13:44-0400 SaO2% (BldA) [Mass fraction] 95 % Ross Castorena MD Work Phone: [facility] 08-24-2023 13:44-0400 Systolic blood pressure 137 mm[Hg] Ross Castorena MD Work Phone: [facility] 08-15-2023 16:00-0400 Diastolic blood pressure 82 mm[Hg] 3 [facility] 08-15-2023 16:00-0400 Heart rate 85 /min 3 [facility] 08-15-2023 16:00-0400 Respiratory rate 17 /min 3 [facility] 08-15-2023 16:00-0400 SaO2% (BldA) [Mass fraction] 98 % 3 [facility] 08-15-2023 16:00-0400 Systolic blood pressure 169 mm[Hg] 3 [facility] 08-14-2023 14:01-0400 SaO2% (BldA) [Mass fraction] 99.2 % Ross Castorena MD Work Phone: [facility] 08-13-2023 02:05-0400 Body mass index (BMI) [Ratio] 27.91 kg/m2 Ross Castorena MD Work Phone: [facility] 08-13-2023 02:05-0400 Body weight 80.83 kg Ross Castorena MD Work Phone: [facility] 08-12-2023 18:30-0400 Diastolic blood pressure 68 mm[Hg] [facility] 08-12-2023 18:30-0400 Heart rate 72 /min [facility] 08-12-2023 18:30-0400 Mean blood pressure 93 mm[Hg] [facility] 08-12-2023 18:30-0400 Respiratory rate 16 /min [facility] 08-12-2023 18:30-0400 SaO2% (BldA) [Mass fraction] 97 % [facility] 08-12-2023 18:30-0400 Systolic blood pressure 144 mm[Hg] [facility] 08-12-2023 18:00-0400 Diastolic blood pressure 72 mm[Hg] [facility] 08-12-2023 18:00-0400 Heart rate 71 /min [facility] 08-12-2023 18:00-0400 Mean blood pressure 96 mm[Hg] [facility] 08-12-2023 18:00-0400 Respiratory rate 19 /min [facility] 08-12-2023 18:00-0400 SaO2% (BldA) [Mass fraction] 93 % [facility] 08-12-2023 18:00-0400 Systolic blood pressure 145 mm[Hg] [facility] 08-12-2023 17:30-0400 Diastolic blood pressure 74 mm[Hg] [facility] 08-12-2023 17:30-0400 Heart rate 72 /min [facility] 08-12-2023 17:30-0400 Mean blood pressure 99 mm[Hg] [facility] 08-12-2023 17:30-0400 Respiratory rate 17 /min [facility] 08-12-2023 17:30-0400 SaO2% (BldA) [Mass fraction] 92 % [facility] 08-12-2023 17:30-0400 Systolic blood pressure 149 mm[Hg] [facility] 08-12-2023 16:08-0400 gluc 131 mg/dL [facility] 08-12-2023 16:08-0400 gluc [facility] 08-12-2023 16:00-0400 Body temperature 98.06 [degF] [facility] 08-12-2023 16:00-0400 Heart rate 74 /min [facility] 08-04-2023 04:01-0400 Body temperature 98.8 [degF] Janny Perez MD Work Phone: [facility] 08-04-2023 04:01-0400 Diastolic blood pressure 63 mm[Hg] [facility] 08-04-2023 04:01-0400 Heart rate 72 /min Janny Perez MD Work Phone: [employer] 08-04-2023 04:01-0400 Respiratory rate 18 /min [facility] 08-04-2023 04:01-0400 SaO2% (BldA) [Mass fraction] 97 % Janny Perez [facility] 08-04-2023 04:01-0400 Systolic blood pressure 146 mm[Hg] Janny Perez MD [facility] 08-01-2023 14:06-0400 Heart rate 77 /min Janny Perez [facility] 08-01-2023 08:35-0400 Heart rate 77 /min Janny Perez MD Work Phone: [facility] 07-29-2023 16:48-0400 Body mass index (BMI) [Ratio] 28.77 kg/m2 Janny Perez MD [facility] 07-29-2023 16:48-0400 Body weight 83.33 kg Janny Perez MD Work Phone: [facility] 07-29-2023 15:50-0400 Body height 170.2 cm Janny Perez MD Work Phone: [facility] 07-29-2023 12:30-0400 Diastolic blood pressure 64 mm[Hg] [facility] 07-29-2023 12:30-0400 Heart rate 58 /min [facility] 07-29-2023 12:30-0400 Mean blood pressure 87 mm[Hg] [facility] 07-29-2023 12:30-0400 Respiratory rate 14 /min [facility] 07-29-2023 12:30-0400 SaO2% (BldA) [Mass fraction] 97 % [facility] 07-29-2023 12:30-0400 Systolic blood pressure 133 mm[Hg] St[facility] 07-29-2023 12:21-0400 Diastolic blood pressure 74 mm[Hg] St[facility] 07-29-2023 12:21-0400 Systolic blood pressure 166 mm[Hg] [facility] 07-29-2023 12:15-0400 Heart rate 61 /min St[facility] 07-29-2023 12:15-0400 Respiratory rate 20 /min [facility] 07-29-2023 12:15-0400 SaO2% (BldA) [Mass fraction] 92 % [facility] 07-29-2023 11:45-0400 Diastolic blood pressure 76 mm[Hg] St[facility] 07-29-2023 11:45-0400 Heart rate 58 /min [facility] 07-29-2023 11:45-0400 Mean blood pressure 102 mm[Hg] Stacia [facility] 07-29-2023 11:45-0400 Respiratory rate 11 /min [facility] 07-29-2023 11:45-0400 SaO2% (BldA) [Mass fraction] 93 % [facility] 07-29-2023 11:45-0400 Systolic blood pressure 154 mm[Hg] [facility] 07-29-2023 11:23-0400 Body temperature 97.7 [degF] [facility] 07-29-2023 11:23-0400 Heart rate 62 /min [facility] 07-29-2023 11:23-0400 Respiratory rate 18 /min [facility] 07-29-2023 11:04-0400 Body temperature 96.26 [degF] [facility] 07-29-2023 11:04-0400 Heart rate 66 /min [facility] 07-29-2023 11:04-0400 Respiratory rate 20 /min [facility] 07-16-2023 15:20-0400 Body height 170.18 cm DO Hardeep Magaly Work Phone: [facility] 07-16-2023 15:20-0400 Body mass index (BMI) [Ratio] 29.4 kg/m2 DO Hardeep Magaly Work Phone: [facility] 07-16-2023 15:20-0400 Body temperature 97.2 [degF] DO Hardeep Magaly Work Phone: [facility] 07-16-2023 15:20-0400 Body weight 85.27 kg DO Hardeep Magaly Work Phone: [facility] 07-16-2023 15:20-0400 Diastolic blood pressure 70 mm[Hg] DO Hardeep Magaly Work Phone: [facility] 07-16-2023 15:20-0400 Heart rate 64 /min DO Hardeep Magaly Work Phone: [facility] 07-16-2023 15:20-0400 Respiratory rate 18 /min DO Hardeep Magaly Work Phone: [facility] 07-16-2023 15:20-0400 SaO2% (BldA) [Mass fraction] 96 % DO Hardeep Magaly Work Phone: [facility] 07-16-2023 15:20-0400 Systolic blood pressure 110 mm[Hg] DO Hardeep Magaly Work Phone: [facility] 07-13-2023 22:28-0400 Diastolic blood pressure 74 mm[Hg] [facility] 07-13-2023 22:28-0400 Heart rate 63 /min [facility] 07-13-2023 22:28-0400 Mean blood pressure 103 mm[Hg] [facility] 07-13-2023 22:28-0400 Respiratory rate 16 /min [facility] 07-13-2023 22:28-0400 SaO2% (BldA) [Mass fraction] 97 % [facility] 07-13-2023 22:28-0400 Systolic blood pressure 160 mm[Hg] [facility] 07-13-2023 21:20-0400 Diastolic blood pressure 61 mm[Hg] Hank [facility] 07-13-2023 21:20-0400 Heart rate 60 /min Hank [facility] 07-13-2023 21:20-0400 Mean blood pressure 90 mm[Hg] [facility] 07-13-2023 21:20-0400 Respiratory rate 16 /min [facility] 07-13-2023 21:20-0400 SaO2% (BldA) [Mass fraction] 95 % [facility] 07-13-2023 21:20-0400 Systolic blood pressure 147 mm[Hg] [facility] 07-13-2023 20:26-0400 Diastolic blood pressure 69 mm[Hg] [facility] 07-13-2023 20:26-0400 Heart rate 74 /min [facility] 07-13-2023 20:26-0400 Mean blood pressure 99 mm[Hg] [facility] 07-13-2023 20:26-0400 Respiratory rate 16 /min [facility] 07-13-2023 20:26-0400 SaO2% (BldA) [Mass fraction] 93 % [facility] 07-13-2023 20:26-0400 Systolic blood pressure 158 mm[Hg] [facility] 07-13-2023 18:42-0400 Hourly Rounding [facility] 07-13-2023 18:42-0400 Promise to Return Hank [facility] 07-13-2023 17:32-0400 Body temperature 98.06 [degF] [facility] 07-13-2023 17:32-0400 Heart rate 59 /min [facility] 07-11-2023 16:44-0400 Hourly Rounding Alejandra [facility] 07-11-2023 16:44-0400 Promise to Return [facility] 07-11-2023 16:14-0400 Respiratory rate 16 /min [facility] 07-11-2023 16:10-0400 Respiratory rate 16 /min [facility] 07-11-2023 16:10-0400 SaO2% (BldA) [Mass fraction] 95 % [facility] 07-11-2023 15:42-0400 Hourly Rounding [facility] 07-11-2023 15:42-0400 Promise to Return [facility] 07-11-2023 14:16-0400 Hourly Rounding [facility] 07-11-2023 14:16-0400 Promise to Return [facility] 07-11-2023 12:04-0400 Respiratory rate 16 /min [facility] 07-11-2023 12:04-0400 SaO2% (BldA) [Mass fraction] 95 % [facility] [facility] 07-11-2023 11:00-0400 Blood Pressure Location [facility] 07-11-2023 11:00-0400 Body temperature 98.78 [degF] [facility] 07-11-2023 11:00-0400 Diastolic blood pressure 64 mm[Hg] [facility] 07-11-2023 11:00-0400 Heart rate 70 /min [facility] 07-11-2023 11:00-0400 Heart rate 68 /min [facility] 07-11-2023 11:00-0400 Mean blood pressure 84 mm[Hg] Alejandra [facility] 07-11-2023 11:00-0400 Systolic blood pressure 125 mm[Hg] Alejandra [facility] 07-11-2023 09:30-0400 Diastolic blood pressure 62 mm[Hg] Alejandra [facility] 07-11-2023 09:30-0400 Heart rate 69 /min [facility] 07-11-2023 09:30-0400 Systolic blood pressure 133 mm[Hg] [facility] 07-11-2023 08:41-0400 Heart rate 80 /min [facility] 07-11-2023 08:36-0400 Heart rate 75 /min [facility] 07-11-2023 08:00-0400 Body temperature 96.98 [degF] [facility] 07-11-2023 08:00-0400 Diastolic blood pressure 72 mm[Hg] [facility] 07-11-2023 08:00-0400 Heart rate 65 /min [facility] 07-11-2023 08:00-0400 Mean blood pressure 98 mm[Hg] Alejandra [facility] 07-11-2023 08:00-0400 Systolic blood pressure 151 mm[Hg] [facility] 07-10-2023 20:32-0400 Heart rate 69 /min [facility] 07-10-2023 20:31-0400 Body temperature 97.7 [degF] [facility] 07-10-2023 20:29-0400 Mean blood pressure 80 mm[Hg] [facility] 07-10-2023 15:13-0400 Body temperature 97.88 [degF] [facility] 07-10-2023 15:13-0400 Mean blood pressure 82 mm[Hg] Alejandra [facility] 07-10-2023 11:12-0400 Mean blood pressure 110 mm[Hg] [facility] 07-10-2023 11:11-0400 Body temperature 97.7 [degF] [facility] 07-10-2023 05:00-0400 Body temperature 97.52 [degF] [facility] 07-10-2023 05:00-0400 Respiratory rate 16 /min [facility] 07-10-2023 01:00-0400 Blood Pressure Location [facility] 07-10-2023 01:00-0400 Respiratory rate 16 /min [facility] 07-09-2023 16:24-0400 Mean blood pressure 75 mm[Hg] [facility] 07-09-2023 14:00-0400 Respiratory rate 10 /min [facility] 07-08-2023 21:57-0400 Heart rate 66 /min [facility] 07-06-2023 13:07-0400 Body height 170.2 cm Delfin Dow APRN.WEB PROGRAMMER Work Phone: [facility] 07-06-2023 13:07-0400 Body mass index (BMI) [Ratio] 29.76 kg/m2 Delfin Dow APRN.WEB PROGRAMMER Work Phone: [facility] 07-06-2023 13:07-0400 Body temperature 97.3 [degF] Delfin Dow APRN.WEB PROGRAMMER Work Phone: [facility] 07-06-2023 13:07-0400 Body weight 86.18 kg Delfin Dow APRN.WEB PROGRAMMER Work Phone: [facility] 07-06-2023 13:07-0400 Diastolic blood pressure 56 mm[Hg] Delfin Dow APRN.WEB PROGRAMMER Work Phone: [facility] 07-06-2023 13:07-0400 Heart rate 61 /min Delfin Annemarie CAMERA MAKER.WEB PROGRAMMER Work Phone: [facility] 07-06-2023 13:07-0400 Respiratory rate 14 /min Delfin Annemarie CAMERA MAKER.WEB PROGRAMMER Work Phone: [facility] 07-06-2023 13:07-0400 SaO2% (BldA) [Mass fraction] 97 % Delfin Dow CAMERA MAKER.WEB PROGRAMMER Work Phone: [facility] 07-06-2023 13:07-0400 Systolic blood pressure 141 mm[Hg] Delfin Dow CAMERA MAKER.WEB PROGRAMMER Work Phone: [facility] 06-29-2023 10:33-0400 Body height 170.2 cm Van Zonia CAMERA MAKER.WEB PROGRAMMER Work Phone: [facility] 06-29-2023 10:33-0400 Body mass index (BMI) [Ratio] 29.76 kg/m2 Van Shiragerminoo CAMERA MAKER.WEB PROGRAMMER Work Phone: [facility] 06-29-2023 10:33-0400 Body temperature 97.2 [degF] Van Shiragert CAMERA MAKER.WEB PROGRAMMER Work Phone: [facility] 06-29-2023 10:33-0400 Body weight 86.18 kg Christopher Silvagert CAMERA MAKER.WEB PROGRAMMER Work Phone: [facility] 06-29-2023 10:33-0400 Diastolic blood pressure 59 mm[Hg] Van Fagert CAMERA MAKER.WEB PROGRAMMER Work Phone: [facility] 06-29-2023 10:33-0400 Heart rate 56 /min Van Shiragert CAMERA MAKER.WEB PROGRAMMER Work Phone: [facility] 06-29-2023 10:33-0400 Respiratory rate 13 /min Van Shiragert CAMERA MAKER.WEB PROGRAMMER Work Phone: [facility] 06-29-2023 10:33-0400 SaO2% (BldA) [Mass fraction] 97 % Van Zonia CAMERA MAKER.WEB PROGRAMMER Work Phone: [facility] 06-29-2023 10:33-0400 Systolic blood pressure 126 mm[Hg] Van Zonia CAMERA MAKER.WEB PROGRAMMER Work Phone: [facility] 06-28-2023 14:03-0400 Body height 170.18 cm DO Hardeep Magaly Work Phone: [facility] 06-28-2023 14:03-0400 Body mass index (BMI) [Ratio] 28.3 kg/m2 DO Hardeep Magaly Work Phone: [facility] 06-28-2023 14:03-0400 Body temperature 97 [degF] DO Hardeep Magaly Work Phone: [facility] 06-28-2023 14:03-0400 Body weight 82.1 kg DO Hardeep Magaly Work Phone: [facility] 06-28-2023 14:03-0400 Diastolic blood pressure 64 mm[Hg] DO Hardeep Magaly Work Phone: [facility] 06-28-2023 14:03-0400 Heart rate 63 /min DO Hardeep Magaly Work Phone: [facility] 06-28-2023 14:03-0400 Respiratory rate 18 /min DO Hardeep Magaly Work Phone: [facility] 06-28-2023 14:03-0400 SaO2% (BldA) [Mass fraction] 97 % DO Hardeep Magaly Work Phone: [facility] 06-28-2023 14:03-0400 Systolic blood pressure 130 mm[Hg] DO Hardeep Magaly Work Phone: [facility] 06-25-2023 14:32-0400 Diastolic blood pressure 78 mm[Hg] [facility] 06-25-2023 14:32-0400 Heart rate 60 /min Hank [facility] 06-25-2023 14:32-0400 Mean blood pressure 112 mm[Hg] Hank [facility] 06-25-2023 14:32-0400 SaO2% (BldA) [Mass fraction] 99 % Hank Chir[facility] 06-25-2023 14:32-0400 Systolic blood pressure 180 mm[Hg] Hank [facility] 06-25-2023 13:30-0400 Diastolic blood pressure 78 mm[Hg] Hank [facility] 06-25-2023 13:30-0400 Heart rate 53 /min Hank [facility] 06-25-2023 13:30-0400 Mean blood pressure 102 mm[Hg] Hank [facility] 06-25-2023 13:30-0400 SaO2% (BldA) [Mass fraction] 97 % Hank [facility] 06-25-2023 13:30-0400 Systolic blood pressure 149 mm[Hg] Hank [facility] 06-25-2023 12:41-0400 Body temperature 97.7 [degF] Hank [facility] 06-25-2023 12:41-0400 Diastolic blood pressure 78 mm[Hg] Hank [facility] 06-25-2023 12:41-0400 Heart rate 55 /min Hank [facility] 06-25-2023 12:41-0400 Respiratory rate 18 /min Hank [facility] 06-25-2023 12:41-0400 SaO2% (BldA) [Mass fraction] 100 % Hank [facility] 06-25-2023 12:41-0400 Systolic blood pressure 151 mm[Hg] Hank [facility] 06-21-2023 15:20-0400 Diastolic blood pressure 79 mm[Hg] Stacia [facility] 06-21-2023 15:20-0400 Heart rate 55 /min Stacialindsey [facility] 06-21-2023 15:20-0400 Mean blood pressure 111 mm[Hg] Stacialindsey [facility] 06-21-2023 15:20-0400 Respiratory rate 16 /min Stacia [facility] 06-21-2023 15:20-0400 SaO2% (BldA) [Mass fraction] 96 % Stacia [facility] 06-21-2023 15:20-0400 Systolic blood pressure 174 mm[Hg] Stacialindsey [facility] 06-21-2023 15:00-0400 Heart rate 58 /min Stacialnidsey [facility] 06-21-2023 15:00-0400 SaO2% (BldA) [Mass fraction] 97 % Stacia [facility] 06-21-2023 12:18-0400 Body temperature 97.7 [degF] [facility] 06-21-2023 12:18-0400 Diastolic blood pressure 78 mm[Hg] [facility] 06-21-2023 12:18-0400 Heart rate 55 /min Stacia [facility] 06-21-2023 12:18-0400 Respiratory rate 18 /min Stacia [facility] 06-21-2023 12:18-0400 SaO2% (BldA) [Mass fraction] 99 % Stacia [facility] 06-21-2023 12:18-0400 Systolic blood pressure 167 mm[Hg] [facility] 06-19-2023 12:08-0400 Body height 170.18 cm DO Hardeep Magaly Work Phone: [facility] 06-19-2023 12:08-0400 Body mass index (BMI) [Ratio] 28 kg/m2 DO Hardeep Magaly Work Phone: [facility] 06-19-2023 12:08-0400 Body weight 81.19 kg DO Hardeep Magaly Work Phone: [facility] 06-19-2023 12:08-0400 Diastolic blood pressure 80 mm[Hg] DO Hardeep Magaly Work Phone: [facility] 06-19-2023 12:08-0400 Heart rate 53 /min DO Hardeep Magaly Work Phone: [facility] 06-19-2023 12:08-0400 Respiratory rate 18 /min DO Hardeep Magaly Work Phone: [facility] 06-19-2023 12:08-0400 SaO2% (BldA) [Mass fraction] 93 % DO Hardeep Magaly Work Phone: [facility] 06-19-2023 12:08-0400 Systolic blood pressure 176 mm[Hg] DO Hardeep Magaly Work Phone: [facility] 06-18-2023 16:00-0400 Diastolic blood pressure 83 mm[Hg] [facility] 06-18-2023 16:00-0400 Heart rate 52 /min [facility] 06-18-2023 16:00-0400 Mean blood pressure 112 mm[Hg] [facility] 06-18-2023 16:00-0400 Respiratory rate 22 /min [facility] 06-18-2023 16:00-0400 SaO2% (BldA) [Mass fraction] 95 % [facility] 06-18-2023 16:00-0400 Systolic blood pressure 169 mm[Hg] [facility] 06-18-2023 15:00-0400 Diastolic blood pressure 84 mm[Hg] [facility] 06-18-2023 15:00-0400 Mean blood pressure 117 mm[Hg] [facility] 06-18-2023 15:00-0400 Respiratory rate 16 /min [facility] 06-18-2023 15:00-0400 SaO2% (BldA) [Mass fraction] 98 % [facility] 06-18-2023 15:00-0400 Systolic blood pressure 184 mm[Hg] [facility] 06-18-2023 14:00-0400 Heart rate 50 /min [facility] 06-18-2023 14:00-0400 Respiratory rate 20 /min [facility] 06-18-2023 13:02-0400 Body temperature 98.06 [degF] [facility] 06-18-2023 13:02-0400 Diastolic blood pressure 77 mm[Hg] [facility] 06-18-2023 13:02-0400 Heart rate 58 /min [facility] 06-18-2023 13:02-0400 Respiratory rate 18 /min [facility] 06-18-2023 13:02-0400 Systolic blood pressure 163 mm[Hg] [facility] 06-17-2023 17:14-0400 Diastolic blood pressure 84 mm[Hg] [facility] 06-17-2023 17:14-0400 Heart rate 51 /min [facility] 06-17-2023 17:14-0400 Mean blood pressure 109 mm[Hg] [facility] 06-17-2023 17:14-0400 Respiratory rate 16 /min [facility] 06-17-2023 17:14-0400 SaO2% (BldA) [Mass fraction] 98 % [facility] 06-17-2023 17:14-0400 Systolic blood pressure 159 mm[Hg] [facility] 06-17-2023 15:59-0400 Body temperature 97.52 [degF] [facility] 06-17-2023 15:59-0400 Diastolic blood pressure 89 mm[Hg] [facility] 06-17-2023 15:59-0400 Heart rate 56 /min [facility] 06-17-2023 15:59-0400 Respiratory rate 18 /min [facility] 06-17-2023 15:59-0400 SaO2% (BldA) [Mass fraction] 100 % [facility] 06-17-2023 15:59-0400 Systolic blood pressure 183 mm[Hg] [facility] 06-16-2023 08:42-0400 Diastolic blood pressure 78 mm[Hg] [facility] 06-16-2023 08:42-0400 Heart rate 62 /min [facility] 06-16-2023 08:42-0400 Mean blood pressure 104 mm[Hg] [facility] 06-16-2023 08:42-0400 Respiratory rate 17 /min [facility] 06-16-2023 08:42-0400 SaO2% (BldA) [Mass fraction] 96 % [facility] 06-16-2023 08:42-0400 Systolic blood pressure 156 mm[Hg] [facility] 06-16-2023 07:33-0400 Diastolic blood pressure 82 mm[Hg] [facility] 06-16-2023 07:33-0400 Heart rate 64 /min [facility] 06-16-2023 07:33-0400 Mean blood pressure 109 mm[Hg] [facility] 06-16-2023 07:33-0400 Respiratory rate 16 /min [facility] 06-16-2023 07:33-0400 SaO2% (BldA) [Mass fraction] 96 % [facility] 06-16-2023 07:33-0400 Systolic blood pressure 164 mm[Hg] [facility] 06-16-2023 06:47-0400 Diastolic blood pressure 95 mm[Hg] [facility] 06-16-2023 06:47-0400 Heart rate 68 /min [facility] 06-16-2023 06:47-0400 Mean blood pressure 126 mm[Hg] [facility] 06-16-2023 06:47-0400 Respiratory rate 16 /min [facility] 06-16-2023 06:47-0400 SaO2% (BldA) [Mass fraction] 95 % [facility] 06-16-2023 06:47-0400 Systolic blood pressure 187 mm[Hg] [facility] 06-16-2023 04:19-0400 Body temperature 97.7 [degF] [facility] 06-16-2023 04:19-0400 Heart rate 95 /min [facility] 06-16-2023 04:19-0400 Respiratory rate 18 /min aJmes Nguyen [facility] 06-15-2023 10:04-0400 Body height 170.2 cm Noé Lilly MD Work Phone: [facility] 06-15-2023 10:04-0400 Body weight 86.64 kg Noé Lilly MD Work Phone: [facility] 06-15-2023 10:04-0400 Diastolic blood pressure 76 mm[Hg] Noé Lilly MD Work Phone: [facility] 06-15-2023 10:04-0400 Heart rate 69 /min Noé Lilly MD Work Phone: [facility] 06-15-2023 10:04-0400 SaO2% (BldA) [Mass fraction] 99 % Noé Lilly MD Work Phone: [facility] 06-15-2023 10:04-0400 Systolic blood pressure 176 mm[Hg] Noé Lilly MD Work Phone: [facility] 06-14-2023 07:00-0400 Diastolic blood pressure 96 mm[Hg] Do Monte[facility] 06-14-2023 07:00-0400 Heart rate 77 /min Kaylinn [facility] 06-14-2023 07:00-0400 Mean blood pressure 126 mm[Hg] Kaylinn [facility] 06-14-2023 07:00-0400 SaO2% (BldA) [Mass fraction] 88 % Kaylinn [facility] 06-14-2023 07:00-0400 Systolic blood pressure 185 mm[Hg] Kaylinn [facility] 06-14-2023 06:00-0400 Diastolic blood pressure 70 mm[Hg] Kaylinn [facility] 06-14-2023 06:00-0400 Heart rate 53 /min Kaylinn [facility] 06-14-2023 06:00-0400 Mean blood pressure 98 mm[Hg] Kaylinn [facility] 06-14-2023 06:00-0400 Respiratory rate 11 /min Kaylinn [facility] 06-14-2023 06:00-0400 SaO2% (BldA) [Mass fraction] 95 % Kaylinn [facility] 06-14-2023 06:00-0400 Systolic blood pressure 154 mm[Hg] Kaylinn [facility] 06-14-2023 05:14-0400 Body temperature 97.7 [degF] Kaylinn [facility] 06-14-2023 05:14-0400 Diastolic blood pressure 89 mm[Hg] Uliinn [facility] 06-14-2023 05:14-0400 Heart rate 60 /min Uliinn [facility] 06-14-2023 05:14-0400 Respiratory rate 20 /min Uliinn [facility] 06-14-2023 05:14-0400 SaO2% (BldA) [Mass fraction] 100 % Susun [facility] 06-14-2023 05:14-0400 Systolic blood pressure 192 mm[Hg] Uliinn [facility] 06-08-2023 20:00-0400 Diastolic blood pressure 79 mm[Hg] [facility] 06-08-2023 20:00-0400 Mean blood pressure 98 mm[Hg] [facility] 06-08-2023 20:00-0400 Respiratory rate 11 /min [facility] 06-08-2023 20:00-0400 SaO2% (BldA) [Mass fraction] 92 % [facility] 06-08-2023 20:00-0400 Systolic blood pressure 135 mm[Hg] [facility] 06-08-2023 19:00-0400 Diastolic blood pressure 70 mm[Hg] [facility] 06-08-2023 19:00-0400 Mean blood pressure 96 mm[Hg] [facility] 06-08-2023 19:00-0400 Respiratory rate 10 /min [facility] 06-08-2023 19:00-0400 SaO2% (BldA) [Mass fraction] 98 % [facility] 06-08-2023 19:00-0400 Systolic blood pressure 149 mm[Hg] [facility] 06-08-2023 18:58-0400 Diastolic blood pressure 80 mm[Hg] [facility] 06-08-2023 18:58-0400 Heart rate 51 /min [facility] 06-08-2023 18:58-0400 Mean blood pressure 106 mm[Hg] [facility] 06-08-2023 18:58-0400 Respiratory rate 13 /min [facility] 06-08-2023 18:58-0400 SaO2% (BldA) [Mass fraction] 97 % [facility] 06-08-2023 18:58-0400 Systolic blood pressure 157 mm[Hg] [facility] 06-08-2023 16:38-0400 Respiratory rate 18 /min [facility] 06-08-2023 15:30-0400 Respiratory rate 18 /min [facility] 06-08-2023 14:13-0400 Body temperature 97.7 [degF] [facility] 06-08-2023 14:13-0400 Heart rate 55 /min [facility] 06-08-2023 14:13-0400 Respiratory rate 16 /min [facility] 05-30-2023 16:06-0400 Diastolic blood pressure 72 mm[Hg] DO Hardeep Magaly Work Phone: [facility] 05-30-2023 16:06-0400 Systolic blood pressure 136 mm[Hg] DO Hardeep Magaly Work Phone: [facility] 05-30-2023 15:34-0400 Body height 170.18 cm DO Hardeep Magaly Work Phone: [facility] 05-30-2023 15:34-0400 Body mass index (BMI) [Ratio] 28 kg/m2 DO Hardeep Magaly Work Phone: [facility] 05-30-2023 15:34-0400 Body weight 81.19 kg DO Hardeep Magaly Work Phone: [facility] 05-30-2023 15:34-0400 Diastolic blood pressure 80 mm[Hg] DO Hardeep Magaly Work Phone: [facility] 05-30-2023 15:34-0400 Heart rate 54 /min DO Hardeep Magaly Work Phone: [facility] 05-30-2023 15:34-0400 Respiratory rate 18 /min DO Hardeep Magaly Work Phone: [facility] 05-30-2023 15:34-0400 SaO2% (BldA) [Mass fraction] 99 % DO Hardeep Magaly Work Phone: [facility] 05-30-2023 15:34-0400 Systolic blood pressure 144 mm[Hg] DO Hardeep Magaly Work Phone: [facility] 05-14-2023 13:09-0500 Body height 170.18 cm DO Hardeep Magaly Work Phone: [facility] 05-14-2023 13:09-0500 Body mass index (BMI) [Ratio] 28.6 kg/m2 DO Hardeep Magaly Work Phone: [facility] 05-14-2023 13:09-0500 Body weight 83 kg DO Hardeep Magaly Work Phone: [facility] 05-14-2023 13:09-0500 Diastolic blood pressure 68 mm[Hg] DO Hardeep Magaly Work Phone: [facility] 05-14-2023 13:09-0500 Heart rate 57 /min DO Hardeep Magaly Work Phone: [facility] 05-14-2023 13:09-0500 SaO2% (BldA) [Mass fraction] 96 % DO Hardeep Magaly Work Phone: [facility] 05-14-2023 13:09-0500 Systolic blood pressure 120 mm[Hg] DO Hardeep Magaly Work Phone: [facility] 05-03-2023 11:50-0500 Diastolic blood pressure 51 mm[Hg] [facility] 05-03-2023 11:50-0500 Heart rate 68 /min Stacia [facility] 05-03-2023 11:50-0500 Mean blood pressure 69 mm[Hg] Stacia [facility] 05-03-2023 11:50-0500 Respiratory rate 20 /min Stacia [facility] 05-03-2023 11:50-0500 SaO2% (BldA) [Mass fraction] 98 % Stacia [facility] 05-03-2023 11:50-0500 Systolic blood pressure 104 mm[Hg] Stacia [facility] 05-03-2023 11:40-0500 Diastolic blood pressure 62 mm[Hg] Stacia [facility] 05-03-2023 11:40-0500 Heart rate 65 /min Stacia [facility] 05-03-2023 11:40-0500 Mean blood pressure 84 mm[Hg] St[facility] 05-03-2023 11:40-0500 Respiratory rate 17 /min St[facility] 05-03-2023 11:40-0500 SaO2% (BldA) [Mass fraction] 91 % St[facility] 05-03-2023 11:40-0500 Systolic blood pressure 129 mm[Hg] St[facility] 05-03-2023 11:30-0500 Diastolic blood pressure 69 mm[Hg] [facility] 05-03-2023 11:30-0500 Heart rate 64 /min St[facility] 05-03-2023 11:30-0500 Mean blood pressure 97 mm[Hg] [facility] 05-03-2023 11:30-0500 Respiratory rate 15 /min [facility] 05-03-2023 11:30-0500 SaO2% (BldA) [Mass fraction] 97 % [facility] 05-03-2023 11:30-0500 Systolic blood pressure 153 mm[Hg] [facility] 05-03-2023 10:19-0500 Heart rate 57 /min St[facility] 05-03-2023 09:04-0500 Body temperature 97.88 [degF] [facility] 05-03-2023 09:04-0500 Heart rate 60 /min St[facility] 05-03-2023 09:04-0500 Respiratory rate 19 /min [facility] 04-30-2023 21:45-0500 Diastolic blood pressure 77 mm[Hg] DO Hardeep Magaly Work Phone: [facility] 04-30-2023 21:45-0500 Heart rate 69 /min DO Hardeep Magaly Work Phone: [facility] 04-30-2023 21:45-0500 Respiratory rate 18 /min DO Hardeep Magaly Work Phone: [facility] 04-30-2023 21:45-0500 SaO2% (BldA) [Mass fraction] 98 % DO Hardeep Magaly Work Phone: [facility] 04-30-2023 21:45-0500 Systolic blood pressure 171 mm[Hg] DO Hardeep Magaly Work Phone: [facility] 04-30-2023 15:16-0500 Body height 170.18 cm DO Hardeep Magaly Work Phone: [facility] [facility] 04-30-2023 15:16-0500 Body temperature 97.6 [degF] DO Hardeep Magaly Work Phone: [facility] 04-30-2023 15:16-0500 Body weight 82.1 kg DO Hardeep Magaly Work Phone: [facility] 04-20-2023 11:00-0500 Diastolic blood pressure 89 mm[Hg] Do [facility] 04-20-2023 11:00-0500 Mean blood pressure 115 mm[Hg] [facility] 04-20-2023 11:00-0500 SaO2% (BldA) [Mass fraction] 91 % [facility] 04-20-2023 11:00-0500 Systolic blood pressure 167 mm[Hg] [facility] 04-20-2023 10:09-0500 Diastolic blood pressure 111 mm[Hg] [facility] 04-20-2023 10:09-0500 Heart rate 66 /min [facility] 04-20-2023 10:09-0500 Mean blood pressure 120 mm[Hg] [facility] 04-20-2023 10:09-0500 Respiratory rate 14 /min [facility] 04-20-2023 10:09-0500 SaO2% (BldA) [Mass fraction] 98 % [facility] 04-20-2023 10:09-0500 Systolic blood pressure 137 mm[Hg] [facility] 04-20-2023 09:04-0500 Diastolic blood pressure 97 mm[Hg] [facility] 04-20-2023 09:04-0500 Heart rate 65 /min [facility] 04-20-2023 09:04-0500 Mean blood pressure 103 mm[Hg] [facility] 04-20-2023 09:04-0500 Respiratory rate 17 /min [facility] 04-20-2023 09:04-0500 SaO2% (BldA) [Mass fraction] 94 % [facility] 04-20-2023 09:04-0500 Systolic blood pressure 116 mm[Hg] Mary Bethylinn [facility] 04-20-2023 06:01-0500 gluc 135 mg/dL [facility] 04-20-2023 06:01-0500 gluc [facility] 04-20-2023 05:49-0500 Blood Pressure Location [facility] 04-20-2023 05:32-0500 Body temperature 97.7 [degF] Mary [facility]ethyl[facility] 04-20-2023 05:32-0500 Heart rate 61 /min [facility] 04-20-2023 05:32-0500 Respiratory rate 16 /min Mary [facility]ethyl[facility] 04-16-2023 15:00-0500 Body height 165.1 cm Theodora Michael Other [employer] Other 04-16-2023 15:00-0500 Body mass index (BMI) [Ratio] 30.28 kg/m2 Theodora Michael Other [employer] Other 04-16-2023 15:00-0500 Body weight 82.56 kg Theodora Michael Other [employer] Other 04-16-2023 15:00-0500 Diastolic blood pressure 80 mm[Hg] Theodora Michael Other [employer] Other 04-16-2023 15:00-0500 Respiratory rate 20 /min Theodora Michael Other [employer] Other 04-16-2023 15:00-0500 SaO2% (BldA) [Mass fraction] 91 % Theodora Michael Other [employer] Other 04-16-2023 15:00-0500 Systolic blood pressure 150 mm[Hg] Theodora Michael Other [employer] Other 02-12-2023 14:40-0500 Body height 165.1 cm Theodora Michael Other [facility] 02-12-2023 14:40-0500 Body mass index (BMI) [Ratio] 29.95 kg/m2 Theodora Michael Other [employer] Other 02-12-2023 14:40-0500 Body weight 81.65 kg Theodora Michael Other [employer] Other 02-12-2023 14:40-0500 Body weight 81.64 kg DO [employer] Work Phone: [facility] 02-12-2023 14:40-0500 Diastolic blood pressure 78 mm[Hg] Theodora Michael Other [facility] 02-12-2023 14:40-0500 Respiratory rate 20 /min Theodora Michael Other [employer] Other 02-12-2023 14:40-0500 SaO2% (BldA) [Mass fraction] 96 % Theodora Michael Other [employer] Other 02-12-2023 14:40-0500 Systolic blood pressure 152 mm[Hg] Theodora Michael Other [facility] 01-18-2023 10:00-0500 Body height 165.1 cm Theodora Michael Other [employer] Other 01-18-2023 10:00-0500 Body mass index (BMI) [Ratio] 30.28 kg/m2 Theodora Michael Other [employer] Other 01-18-2023 10:00-0500 Body weight 82.56 kg Theodora Michael Other [employer] Other 01-18-2023 10:00-0500 Diastolic blood pressure 76 mm[Hg] Theodora Michael Other [employer] Other 01-18-2023 10:00-0500 Respiratory rate 18 /min Theodora Michael Other [employer] Other 01-18-2023 10:00-0500 SaO2% (BldA) [Mass fraction] 99 % Theodora Michael Other [employer] Other 01-18-2023 10:00-0500 Systolic blood pressure 148 mm[Hg] Theodora Michael Other [employer] Other 11-07-2022 11:30-0400 Body height 165.1 cm Tonia Mcdonough Other [employer] Other 11-07-2022 11:30-0400 Body mass index (BMI) [Ratio] 30.78 kg/m2 Tonia Hawkinsdarrensunny Other [employer] Other 11-07-2022 11:30-0400 Body temperature 97.6 [degF] Tonia Hawkinsdarrensunny Other [employer] Other 11-07-2022 11:30-0400 Body weight 83.92 kg Tonia Mcdonough Other [employer] Other 11-07-2022 11:30-0400 Diastolic blood pressure 68 mm[Hg] Tonia Mcdonough Other [employer] Other 11-07-2022 11:30-0400 SaO2% (BldA) [Mass fraction] 96 % Tonia Mcdonough Other [employer] Other 11-07-2022 11:30-0400 Systolic blood pressure 112 mm[Hg] Tonia Hawkinsmode Other [employer] Other 11-02-2022 11:15-0400 Body height 165.1 cm Patrick Mathewxa Other [employer] Other 11-02-2022 11:15-0400 Body mass index (BMI) [Ratio] 30.78 kg/m2 Patrick Olexa Other [employer] Other 11-02-2022 11:15-0400 Body weight 83.92 kg Patrick Olexa Other [employer] Other 09-25-2022 16:15-0400 Body height 165.1 cm Hardeep Magaly Other [employer] Other 09-25-2022 16:15-0400 Body mass index (BMI) [Ratio] 30.78 kg/m2 Hardeep Magaly Other [employer] Other 09-25-2022 16:15-0400 Body temperature 96.1 [degF] Hardeep Magaly Other [employer] Other 09-25-2022 16:15-0400 Body weight 83.92 kg Hardeep Magaly Other [employer] Other 09-25-2022 16:15-0400 Diastolic blood pressure 78 mm[Hg] Hardeep Magaly Other [employer] Other 09-25-2022 16:15-0400 Respiratory rate 20 /min Hardeep Magaly Other [employer] Other 09-25-2022 16:15-0400 SaO2% (BldA) [Mass fraction] 96 % Hardeep Magaly Other [employer] Other 09-25-2022 16:15-0400 Systolic blood pressure 114 mm[Hg] Hardeep Magaly Other [employer] Other 08-23-2022 11:59-0400 Body height 170.18 cm Hardeep M Magaly Work Phone: [facility] 600 DO Work Phone: 08-23-2022 11:59-0400 Body mass index (BMI) [Ratio] 29.45 kg/m2 Hardeep M Magaly Work Phone: [facility] 600 DO Work Phone: 08-23-2022 11:59-0400 Body surface area Derived from formula 1.97 m2 Hardeep M Magaly Work Phone: [facility] 600 DO Work Phone: 08-23-2022 11:59-0400 Body weight 85.28 kg Hardeep M Magaly Work Phone: [facility] 600 DO Work Phone: 08-23-2022 11:59-0400 Diastolic blood pressure 88 mm[Hg] Hard[facility]ep M Magaly [facility] 600 DO Work Phone: 08-23-2022 11:59-0400 Heart rate 62 /min Hardeep M Magaly Work Phone: [facility] 600 DO Work Phone: 08-23-2022 11:59-0400 Systolic blood pressure 150 mm[Hg] Hard[facility]ep M [facility]aly [facility] DO Work Phone: 08-04-2022 15:07-0400 [employer] Rounding [facility] 08-04-2022 15:07-0400 Promise to Return [facility] 08-04-2022 14:00-0400 Hour[employer] Round[employer] [facility] 08-04-2022 14:00-0400 Promise to Return [facility] 08-04-2022 13:13-0400 Hourly Rounding [facility] 08-04-2022 13:13-0400 Promise to Return [facility] 08-04-2022 08:32-0400 Diastolic blood pressure 80 mm[Hg] [facility] 08-04-2022 08:32-0400 Heart rate 50 /min [facility] 08-04-2022 08:32-0400 Systolic blood pressure 151 mm[Hg] [facility] 08-04-2022 08:00-0400 SaO2% (BldA) [Mass fraction] 95 % [facility] 08-04-2022 07:41-0400 Heart rate 53 /min [facility] 08-04-2022 07:41-0400 SaO2% (BldA) [Mass fraction] 92 % [facility] 08-04-2022 07:39-0400 Diastolic blood pressure 78 mm[Hg] [facility] 08-04-2022 07:39-0400 Mean blood pressure 102 mm[Hg] [facility] 08-04-2022 07:39-0400 Systolic blood pressure 150 mm[Hg] [facility] 08-04-2022 07:39-0400 Body temperature 97.34 [degF] [facility] 08-04-2022 05:43-0400 Blood Pressure Location [facility] 08-04-2022 05:43-0400 Body temperature 97.7 [degF] [facility] 08-04-2022 05:43-0400 Heart rate 71 /min [facility] 08-04-2022 05:43-0400 Mean blood pressure 74 mm[Hg] [facility] 08-04-2022 05:43-0400 Mean blood pressure 102 mm[Hg] [facility] 08-04-2022 05:43-0400 Respiratory rate 18 /min [facility] 08-04-2022 05:43-0400 SaO2% (BldA) [Mass fraction] 96 % [facility] 08-03-2022 23:39-0400 Blood Pressure Location [facility] 08-03-2022 23:39-0400 Body temperature 98.06 [degF] [facility] 08-03-2022 23:39-0400 Heart rate 67 /min [facility] 08-03-2022 23:39-0400 Mean blood pressure 74 mm[Hg] [facility] 08-03-2022 23:39-0400 Mean blood pressure 77 mm[Hg] [facility] 08-03-2022 23:39-0400 Respiratory rate 18 /min [facility] 08-03-2022 19:00-0400 Respiratory rate 19 /min [facility] 08-03-2022 08:27-0400 Heart rate 52 /min [facility] 08-02-2022 08:13-0400 Heart rate 58 /min [facility] 08-02-2022 05:02-0400 Heart rate 71 /min [facility] 08-02-2022 05:02-0400 Mean blood pressure 90 mm[Hg] [facility] 08-01-2022 23:30-0400 Heart rate 78 /min [facility] 08-01-2022 23:00-0400 Respiratory rate 12 /min [facility] 08-01-2022 21:00-0400 Respiratory rate 18 /min [facility] 08-01-2022 20:00-0400 Respiratory rate 20 /min [facility] 08-01-2022 17:25-0400 gluc 141 mg/dL Chidi [facility] 08-01-2022 17:25-0400 gluc [facility] 08-01-2022 17:08-0400 Heart rate 60 /min [facility] 07-25-2022 11:31-0400 Diastolic blood pressure 80 mm[Hg] Hardeep Israelgles Work Phone: [facility] 600 DO Work Phone: 07-25-2022 11:31-0400 Systolic blood pressure 160 mm[Hg] Hardeep M Magaly Work Phone: [facility] 600 DO Work Phone: 07-25-2022 11:09-0400 Body height 170.18 cm Hardeep M Magaly Work Phone: [facility] 600 DO Work Phone: 07-25-2022 11:09-0400 Body mass index (BMI) [Ratio] 29.29 kg/m2 Hardeep M Magaly Work Phone: [facility] 600 DO Work Phone: 07-25-2022 11:09-0400 Body surface area Derived from formula 1.97 m2 Hardeep M Magaly Work Phone: [facility] 600 DO Work Phone: 07-25-2022 11:09-0400 Body weight 84.82 kg Hardeep M Magaly Work Phone: [facility] 600 DO Work Phone: 07-25-2022 11:09-0400 Diastolic blood pressure 72 mm[Hg] Hardeep M Magaly [facility]: [facility] 600 DO Work Phone: 07-25-2022 11:09-0400 Heart rate 62 /min Hardeep M Magaly Work Phone: [facility] 600 DO Work Phone: 07-25-2022 11:09-0400 Systolic blood pressure 152 mm[Hg] Hardeep M Magaly Work Phone: [facility] 600 DO Work Phone: 06-29-2022 13:34-0400 Hourly Rounding [facility] 06-29-2022 13:34-0400 Promise to Return [facility] 06-29-2022 12:16-0400 Hour[employer] Rounding [facility] 06-29-2022 12:16-0400 Promise to Return [facility] 06-29-2022 11:59-0400 Hour[employer] Rounding [facility] 06-29-2022 11:59-0400 Promise to Return [facility] 06-29-2022 11:00-0400 Body temperature 97.34 [degF] [facility] 06-29-2022 11:00-0400 Diastolic blood pressure 68 mm[Hg] [facility] 06-29-2022 11:00-0400 Heart rate 66 /min [facility] 06-29-2022 11:00-0400 Systolic blood pressure 123 mm[Hg] [facility] 06-29-2022 10:33-0400 Diastolic blood pressure 67 mm[Hg] [facility] 06-29-2022 10:33-0400 Systolic blood pressure 126 mm[Hg] [facility] 06-29-2022 08:17-0400 SaO2% (BldA) [Mass fraction] 96 % [facility] 06-29-2022 08:08-0400 Diastolic blood pressure 72 mm[Hg] [facility] 06-29-2022 08:08-0400 Heart rate 68 /min [facility] 06-29-2022 08:08-0400 Systolic blood pressure 171 mm[Hg] [facility] 06-29-2022 08:01-0400 Blood Pressure Location [facility] 06-29-2022 08:01-0400 Heart rate 69 /min [facility] 06-29-2022 08:01-0400 Mean blood pressure 105 mm[Hg] [facility] 06-29-2022 08:01-0400 Respiratory rate 16 /min [facility] 06-29-2022 08:01-0400 SaO2% (BldA) [Mass fraction] 95 % [facility] 06-29-2022 07:00-0400 Body temperature 97.7 [degF] [facility] 06-29-2022 07:00-0400 Heart rate 63 /min [facility] 06-29-2022 00:46-0400 Blood Pressure Location [facility] 06-29-2022 00:46-0400 Body temperature 97.52 [degF] [facility] 06-29-2022 00:46-0400 Respiratory rate 18 /min [facility] 06-28-2022 19:06-0400 Mean blood pressure 100 mm[Hg] [facility] 06-28-2022 16:21-0400 Mean blood pressure 111 mm[Hg] [facility] 06-28-2022 09:42-0400 Heart rate 66 /min [facility] 06-28-2022 08:03-0400 Mean blood pressure 117 mm[Hg] [facility] 06-28-2022 04:45-0400 Mean blood pressure 80 mm[Hg] [facility] 06-28-2022 00:30-0400 Mean blood pressure 94 mm[Hg] [facility] 06-27-2022 17:52-0400 Heart rate 64 /min [facility] 06-27-2022 16:00-0400 Respiratory rate 19 /min [facility] 06-27-2022 15:00-0400 Respiratory rate 16 /min [facility] 06-27-2022 10:06-0400 Heart rate 92 /min [facility] 06-27-2022 10:06-0400 Respiratory rate 20 /min [facility] 06-19-2022 15:15-0400 Body height 165.1 cm [employer] Other [employer] Other 06-19-2022 15:15-0400 Body mass index (BMI) [Ratio] 31.95 kg/m2 [employer] Other [employer] Other 06-19-2022 15:15-0400 Body temperature 97.1 [degF] Hardeep Magaly Other [employer] Other 06-19-2022 15:15-0400 Body weight 87.09 kg Hardeep Magaly Other [employer] Other 06-19-2022 15:15-0400 Diastolic blood pressure 70 mm[Hg] Hardeep Magaly Other [employer] Other 06-19-2022 15:15-0400 Respiratory rate 20 /min Hardeep Magaly Other [employer] Other 06-19-2022 15:15-0400 SaO2% (BldA) [Mass fraction] 96 % Hardeep Magaly Other [employer] Other 06-19-2022 15:15-0400 Systolic blood pressure 130 mm[Hg] Hardeep Magaly Other [employer] Other 04-06-2022 14:30-0500 Body height 165.1 cm Hardeep Magaly Other [employer] Other 04-06-2022 14:30-0500 Body mass index (BMI) [Ratio] 31.45 kg/m2 Hardeep Magaly Other [employer] Other 04-06-2022 14:30-0500 Body temperature 97.5 [degF] Hardeep Magaly Other [employer] Other 04-06-2022 14:30-0500 Body weight 85.73 kg Hardeep Magaly Other [employer] Other 04-06-2022 14:30-0500 Diastolic blood pressure 76 mm[Hg] Hardeep Magaly Other [employer] Other 04-06-2022 14:30-0500 Respiratory rate 20 /min Hardeep Magaly Other [employer] Other 04-06-2022 14:30-0500 SaO2% (BldA) [Mass fraction] 95 % Hardeep Magaly Other [employer] Other 04-06-2022 14:30-0500 Systolic blood pressure 116 mm[Hg] Hardeep Magaly Other [employer] Other 03-21-2022 15:45-0500 Body height 165.1 cm Hardeep Magaly Other [employer] Other 03-21-2022 15:45-0500 Body mass index (BMI) [Ratio] 31.12 kg/m2 Hardeep Magaly Other [employer] Other 03-21-2022 15:45-0500 Body temperature 97.5 [degF] Hardeep Magaly Other [employer] Other 03-21-2022 15:45-0500 Body weight 84.82 kg Hardeep Magaly Other [employer] Other 03-21-2022 15:45-0500 Diastolic blood pressure 62 mm[Hg] Hardeep Magaly Other [employer] Other 03-21-2022 15:45-0500 Respiratory rate 20 /min Hardeep Magaly Other [employer] Other 03-21-2022 15:45-0500 SaO2% (BldA) [Mass fraction] 99 % Hardeep Magaly Other [employer] Other 03-21-2022 15:45-0500 Systolic blood pressure 104 mm[Hg] Hardeep Magaly Other [employer] Other 02-13-2022 17:00-0500 Body height 165.1 cm Hardeep Magaly Other [employer] Other 02-13-2022 17:00-0500 Body mass index (BMI) [Ratio] 32.11 kg/m2 Hardeep Magaly Other [employer] Other 02-13-2022 17:00-0500 Body temperature 97.6 [degF] Hardeep Magaly Other [employer] Other 02-13-2022 17:00-0500 Body weight 87.54 kg Hardeep Magaly Other [employer] Other 02-13-2022 17:00-0500 Diastolic blood pressure 80 mm[Hg] Hardeep Magaly Other [employer] Other 02-13-2022 17:00-0500 Respiratory rate 20 /min Hardeep Magaly Other [employer] Other 02-13-2022 17:00-0500 SaO2% (BldA) [Mass fraction] 97 % Hardeep Magaly Other [employer] Other 02-13-2022 17:00-0500 Systolic blood pressure 118 mm[Hg] Hardeep Mckenzie Other [employer] Other 02-02-2022 06:00-0500 Diastolic blood pressure 80 mm[Hg] [facility] 02-02-2022 06:00-0500 Systolic blood pressure 154 mm[Hg] [facility] 02-02-2022 05:33-0500 Body temperature 96.98 [degF] [facility] 02-02-2022 05:33-0500 Diastolic blood pressure 96 mm[Hg] [facility] 02-02-2022 05:33-0500 Heart rate 68 /min [facility] 02-02-2022 05:33-0500 Respiratory rate 16 /min [facility] 02-02-2022 05:33-0500 SaO2% (BldA) [Mass fraction] 100 % [facility] 02-02-2022 05:33-0500 Systolic blood pressure 165 mm[Hg] [facility] 02-02-2022 05:01-0500 Diastolic blood pressure 102 mm[Hg] [employer] [facility] 02-02-2022 05:01-0500 Heart rate 80 /min [employer] [facility] 02-02-2022 05:01-0500 Respiratory rate 18 /min [employer] [facility] 02-02-2022 05:01-0500 SaO2% (BldA) [Mass fraction] 97 % [employer] [facility] 02-02-2022 05:01-0500 Systolic blood pressure 188 mm[Hg] [employer] [facility] 01-18-2022 15:15-0500 Body height 165.1 cm Hardeep Magaly Other [employer] Other 01-18-2022 15:15-0500 Body mass index (BMI) [Ratio] 32.28 kg/m2 Hardeep Magaly Other [employer] Other 01-18-2022 15:15-0500 Body temperature 97.1 [degF] Hardeep Magaly Other [employer] Other 01-18-2022 15:15-0500 Body weight 88 kg Hardeep Magaly Other [employer] Other 01-18-2022 15:15-0500 Diastolic blood pressure 82 mm[Hg] Hardeep Magaly Other [employer] Other 01-18-2022 15:15-0500 Respiratory rate 20 /min Hardeep Magaly Other [employer] Other 01-18-2022 15:15-0500 SaO2% (BldA) [Mass fraction] 97 % Hardeep Magaly Other [employer] Other 01-18-2022 15:15-0500 Systolic blood pressure 134 mm[Hg] Hardeep Magaly Other [employer] Other 12-22-2021 12:33-0400 Diastolic blood pressure 75 mm[Hg] Hardeep M Magaly Work Phone: [facility] 600 DO Work Phone: 12-22-2021 12:33-0400 Systolic blood pressure 136 mm[Hg] Hardeep M Magaly Work Phone: [facility] 600 DO Work Phone: 12-22-2021 12:24-0400 Body height 170.18 cm Hardeep M Magaly Work Phone: [facility] 600 DO Work Phone: 12-22-2021 12:24-0400 Body mass index (BMI) [Ratio] 29.6 kg/m2 Hardeep M Magaly Work Phone: [facility] 600 DO Work Phone: 12-22-2021 12:24-0400 Body surface area Derived from formula 1.97 m2 Hardeep M Magaly Work Phone: [facility] 600 DO Work Phone: 12-22-2021 12:24-0400 Body weight 85.73 kg Hardeep M Magaly [facility]: [facility] 600 DO Work Phone: 12-22-2021 12:24-0400 Diastolic blood pressure 62 mm[Hg] Hardeep M Magaly [facility]: [facility] 600 DO Work Phone: 12-22-2021 12:24-0400 Heart rate 62 /min Hardeep M Magaly Work Phone: [facility] 600 DO Work Phone: 12-22-2021 12:24-0400 Systolic blood pressure 90 mm[Hg] Hardeep M Magaly Work Phone: [facility] 600 DO Work Phone: 12-20-2021 11:45-0400 Body height 165.1 cm Hardeep Magaly Other [employer] Other 12-20-2021 11:45-0400 Body mass index (BMI) [Ratio] 31.28 kg/m2 Hardeep Magaly Other [employer] Other 12-20-2021 11:45-0400 Body temperature 97.7 [degF] Hardeep Magaly Other [employer] Other 12-20-2021 11:45-0400 Body weight 85.28 kg Hardeep Magaly Other [employer] Other 12-20-2021 11:45-0400 Diastolic blood pressure 64 mm[Hg] Hardeep Magaly Other [employer] Other 12-20-2021 11:45-0400 Respiratory rate 20 /min Hradeep Magaly Other [employer] Other 12-20-2021 11:45-0400 SaO2% (BldA) [Mass fraction] 99 % Hardeep Magaly Other [employer] Other 12-20-2021 11:45-0400 Systolic blood pressure 124 mm[Hg] Hardeep Magaly Other [employer] Other 12-16-2021 17:00-0400 [employer] Round[employer] [facility] Comment on above: Result Comment: Pt d/c 12-16-2021 16:30-0400 Hour[employer] Round[employer] [facility] 12-16-2021 16:30-0400 Promise to Return [facility] 12-16-2021 15:25-0400 Hourly Rounding [facility] 12-16-2021 15:25-0400 Promise to Return [facility] 12-16-2021 14:15-0400 Promise to Return [facility] 12-16-2021 12:00-0400 Body temperature 97.52 [degF] [facility] 12-16-2021 12:00-0400 Diastolic blood pressure 71 mm[Hg] [facility] 12-16-2021 12:00-0400 Heart rate 55 /min [facility] 12-16-2021 12:00-0400 Respiratory rate 16 /min [facility] 12-16-2021 12:00-0400 SaO2% (BldA) [Mass fraction] 97 % [facility] 12-16-2021 12:00-0400 Systolic blood pressure 116 mm[Hg] [facility] 12-16-2021 08:22-0400 Diastolic blood pressure 68 mm[Hg] [facility] 12-16-2021 08:22-0400 Heart rate 64 /min [facility] 12-16-2021 08:22-0400 Systolic blood pressure 140 mm[Hg] [facility] 12-16-2021 08:00-0400 Body temperature 97.88 [degF] [facility] 12-16-2021 08:00-0400 Heart rate 45 /min [facility] 12-16-2021 08:00-0400 SaO2% (BldA) [Mass fraction] 80 % [facility] 12-16-2021 05:00-0400 Body temperature 98.24 [degF] [facility] 12-16-2021 05:00-0400 Heart rate 63 /min [facility] 12-16-2021 05:00-0400 Mean blood pressure 95 mm[Hg] [facility] 12-16-2021 05:00-0400 SaO2% (BldA) [Mass fraction] 95 % [facility] 12-15-2021 23:11-0400 Blood Pressure Location [facility] 12-15-2021 23:11-0400 Mean blood pressure 84 mm[Hg] [facility] 12-15-2021 23:11-0400 Respiratory rate 14 /min [facility] 12-15-2021 20:24-0400 Mean blood pressure 89 mm[Hg] [facility] 12-15-2021 16:38-0400 Blood Pressure Location [facility] 12-15-2021 16:38-0400 Heart rate 57 /min [facility] 12-15-2021 16:38-0400 Respiratory rate 16 /min [facility] 12-15-2021 15:00-0400 Mean blood pressure 100 mm[Hg] [facility] 12-15-2021 14:30-0400 Respiratory rate 19 /min [facility] 12-15-2021 11:10-0400 Heart rate 61 /min [facility] 12-13-2021 12:02-0400 Hourly Rounding [facility] 12-13-2021 12:02-0400 Promise to Return [facility] 12-13-2021 11:02-0400 Hourly Rounding [facility] 12-13-2021 11:02-0400 Promise to Return [facility] 12-13-2021 10:13-0400 Hourly Rounding [facility] 12-13-2021 10:13-0400 Promise to Return [facility] 12-13-2021 08:45-0400 Diastolic blood pressure 81 mm[Hg] [facility] 12-13-2021 08:45-0400 Heart rate 68 /min [facility] 12-13-2021 08:45-0400 Systolic blood pressure 161 mm[Hg] [facility] 12-13-2021 07:47-0400 Blood Pressure Location [facility] 12-13-2021 07:47-0400 BP/Pulse Patient Position [facility] 12-13-2021 07:47-0400 Diastolic blood pressure 81 mm[Hg] [facility] 12-13-2021 07:47-0400 Heart rate 59 /min [facility]aa[facility] 12-13-2021 07:47-0400 Mean blood pressure 108 mm[Hg] [facility]aaileen [facility] 12-13-2021 07:47-0400 Respiratory rate 16 /min Melissaaileen [facility] 12-13-2021 07:47-0400 SaO2% (BldA) [Mass fraction] 97 % Melissa [facility] 12-13-2021 07:47-0400 Systolic blood pressure 161 mm[Hg] [facility]aaile[facility] 12-13-2021 00:45-0400 Blood Pressure Location Melissaaileen [facility] 12-13-2021 00:45-0400 Body temperature 97.34 [degF] Melissaaileen [facility] 12-13-2021 00:45-0400 Diastolic blood pressure 79 mm[Hg] [facility] 12-13-2021 00:45-0400 Heart rate 62 /min Melissaaileen [facility] 12-13-2021 00:45-0400 Mean blood pressure 101 mm[Hg] [facility] 10-04-2022 00:45-0400 Respiratory rate 16 /min [facility] 12-13-2021 00:45-0400 SaO2% (BldA) [Mass fraction] 95 % Melissaaileen [facility] 12-13-2021 00:45-0400 Systolic blood pressure 145 mm[Hg] Melissaaileen [facility] 12-12-2021 09:22-0400 Heart rate 68 /min Melissaaileen [facility] 12-12-2021 08:16-0400 Body temperature 98.06 [degF] Melissaaileen [facility] 12-12-2021 08:16-0400 Heart rate 76 /min Melissaaileen [facility] 12-12-2021 08:16-0400 Mean blood pressure 111 mm[Hg] Melissaaileen [facility] 12-12-2021 08:16-0400 SaO2% (BldA) [Mass fraction] 95 % Melissa [facility] 12-12-2021 04:27-0400 Body temperature 97.88 [degF] Melissaaileen [facility] 12-12-2021 04:27-0400 Heart rate 65 /min Melissaaileen [facility] 12-12-2021 04:27-0400 Mean blood pressure 105 mm[Hg] Melissaaileen [facility] 12-12-2021 01:50-0400 Blood Pressure Location Melissaaileen [facility] 12-12-2021 01:50-0400 Heart rate 63 /min [facility] 12-12-2021 01:50-0400 Respiratory rate 16 /min [facility] 12-12-2021 01:02-0400 Heart rate 63 /min [facility] 12-11-2021 23:59-0400 BP/Pulse Patient Position Melissaaileen [facility] 12-11-2021 23:19-0400 Mean blood pressure 94 mm[Hg] [facility] 12-11-2021 23:19-0400 Respiratory rate 22 /min Melissaaileen [facility] 12-11-2021 21:41-0400 Mean blood pressure 110 mm[Hg] [facility] 12-11-2021 21:41-0400 Respiratory rate 15 /min [facility] 12-11-2021 20:38-0400 Respiratory rate 15 /min [facility] 12-02-2021 12:00-0400 Hourly Rounding [facility] 12-02-2021 12:00-0400 Promise to Return [facility] 12-02-2021 11:00-0400 Blood Pressure Location [facility] 12-02-2021 11:00-0400 Body temperature 97.34 [degF] [facility] 12-02-2021 11:00-0400 BP/Pulse Patient Position [facility] 12-02-2021 11:00-0400 Diastolic blood pressure 57 mm[Hg] [facility] 12-02-2021 11:00-0400 Heart rate 58 /min [facility] 12-02-2021 11:00-0400 Hourly Rounding [facility] 12-02-2021 11:00-0400 Promise to Return [facility] 12-02-2021 11:00-0400 Respiratory rate 16 /min [facility] 12-02-2021 11:00-0400 Systolic blood pressure 95 mm[Hg] [facility] 12-02-2021 10:00-0400 Hourly Rounding [facility] 12-02-2021 10:00-0400 Promise to Return [facility] 12-02-2021 08:35-0400 Diastolic blood pressure 68 mm[Hg] [facility] 12-02-2021 08:35-0400 Heart rate 64 /min [facility] 12-02-2021 08:35-0400 Systolic blood pressure 120 mm[Hg] [facility] 12-02-2021 08:25-0400 SaO2% (BldA) [Mass fraction] 96 % [facility] 12-02-2021 03:28-0400 Heart rate 59 /min [facility] 12-02-2021 03:28-0400 Mean blood pressure 82 mm[Hg] [facility] 12-02-2021 03:28-0400 SaO2% (BldA) [Mass fraction] 95 % [facility] 12-02-2021 03:00-0400 Respiratory rate 17 /min [facility] 12-01-2021 23:25-0400 Body temperature 97.34 [degF] [facility] 12-01-2021 23:25-0400 Mean blood pressure 103 mm[Hg] [facility] 12-01-2021 20:13-0400 Mean blood pressure 74 mm[Hg] [facility] 12-01-2021 17:22-0400 Heart rate 53 /min [facility] 12-01-2021 10:00-0400 Heart rate 58 /min [facility] 12-01-2021 04:00-0400 Mean blood pressure 89 mm[Hg] [facility] 12-01-2021 00:38-0400 Heart rate 63 /min [facility] 12-01-2021 00:23-0400 Mean blood pressure 114 mm[Hg] [facility] 11-30-2021 23:06-0400 Heart rate 70 /min [facility] 11-30-2021 22:30-0400 Mean blood pressure 90 mm[Hg] [facility] 11-30-2021 22:30-0400 Respiratory rate 15 /min [facility] 11-30-2021 22:00-0400 Respiratory rate 14 /min [facility] 11-30-2021 21:50-0400 Respiratory rate 16 /min [facility] 11-30-2021 20:12-0400 Heart rate 61 /min [facility] 11-26-2021 14:00-0400 Hourly Rounding [facility] 11-26-2021 14:00-0400 Promise to Return [facility] 11-26-2021 13:00-0400 Hourly Rounding [facility] 11-26-2021 13:00-0400 Promise to Return [facility] 11-26-2021 12:00-0400 Hourly Rounding [facility] 11-26-2021 12:00-0400 Promise to Return [facility] 11-26-2021 11:15-0400 Blood Pressure Location [facility] 11-26-2021 11:15-0400 Body temperature 97.16 [degF] [facility] 11-26-2021 11:15-0400 BP/Pulse Patient Position [facility] 11-26-2021 11:15-0400 Diastolic blood pressure 66 mm[Hg] [facility] 11-26-2021 11:15-0400 Heart rate 60 /min [facility] 11-26-2021 11:15-0400 Mean blood pressure 82 mm[Hg] [facility] 11-26-2021 11:15-0400 SaO2% (BldA) [Mass fraction] 97 % [facility] 11-26-2021 11:15-0400 Systolic blood pressure 114 mm[Hg] [facility] 11-26-2021 07:51-0400 SaO2% (BldA) [Mass fraction] 96 % [facility] 11-26-2021 07:48-0400 Blood Pressure Location [facility] 11-26-2021 07:48-0400 Body temperature 97.52 [degF] [facility] 11-26-2021 07:48-0400 BP/Pulse Patient Position [facility] 11-26-2021 07:48-0400 Diastolic blood pressure 81 mm[Hg] [facility] 11-26-2021 07:48-0400 Heart rate 59 /min [facility] 11-26-2021 07:48-0400 Mean blood pressure 103 mm[Hg] [facility] 11-26-2021 07:48-0400 SaO2% (BldA) [Mass fraction] 96 % [facility] 11-26-2021 07:48-0400 Systolic blood pressure 148 mm[Hg] [facility] 11-26-2021 02:38-0400 Diastolic blood pressure 65 mm[Hg] [facility] 11-26-2021 02:38-0400 Heart rate 57 /min [facility] 11-26-2021 02:38-0400 Mean blood pressure 86 mm[Hg] [facility] 11-26-2021 02:38-0400 Systolic blood pressure 128 mm[Hg] [facility] 11-26-2021 02:18-0400 BP/Pulse Patient Position [facility] 11-26-2021 02:18-0400 Mean blood pressure 105 mm[Hg] [facility] 11-26-2021 00:17-0400 Body temperature 97.88 [degF] [facility] 11-25-2021 21:24-0400 Heart rate 65 /min [facility] 11-25-2021 08:14-0400 Heart rate 68 /min [facility] 11-25-2021 07:00-0400 Blood Pressure Location [facility] 11-25-2021 00:00-0400 Mean blood pressure 103 mm[Hg] [facility] 11-25-2021 00:00-0400 Respiratory rate 16 /min [facility] 11-24-2021 21:19-0400 Heart rate 58 /min [facility] 11-24-2021 16:00-0400 Respiratory rate 14 /min [facility] 11-24-2021 09:30-0400 65 1 Anjana Azar MD Work Phone: [place] [phone] DO Work Phone: Comment on above: [id number] 11-24-2021 04:00-0400 Heart rate 60 /min [facility] 11-24-2021 04:00-0400 Mean blood pressure 99 mm[Hg] [facility] 11-24-2021 04:00-0400 Respiratory rate 19 /min [facility] 11-24-2021 00:15-0400 Heart rate 63 /min [facility] 11-24-2021 00:15-0400 Respiratory rate 18 /min [facility] 11-23-2021 14:20-0400 Heart rate 70 /min [facility] 11-23-2021 14:13-0400 Respiratory rate 17 /min [facility] 11-07-2021 12:30-0400 Body height 165.1 cm Roycecarlos a Haleyrer Other [employer] Other 11-07-2021 12:30-0400 Body mass index (BMI) [Ratio] 32.45 kg/m2 Royce Buehrer Other [employer] Other 11-07-2021 12:30-0400 Body temperature 97.7 [degF] Royce Haleyrer Other [employer] Other 11-07-2021 12:30-0400 Body weight 88.45 kg Royce Larrycorinerer Other [employer] Other 11-07-2021 12:30-0400 Diastolic blood pressure 70 mm[Hg] Royce Haleyrer Other [employer] Other 11-07-2021 12:30-0400 SaO2% (BldA) [Mass fraction] 97 % Royce Juarezehrer Other [employer] Other 11-07-2021 12:30-0400 Systolic blood pressure 138 mm[Hg] Royce Juarezehrer Other [employer] Other 07-11-2021 12:15-0400 Body height 165.1 cm Hardeep Magaly Other [employer] Other 07-11-2021 12:15-0400 Body mass index (BMI) [Ratio] 32.45 kg/m2 Hardeep Magaly Other [employer] Other 07-11-2021 12:15-0400 Body temperature 97.5 [degF] Hardeep Magaly Other [employer] Other 07-11-2021 12:15-0400 Body weight 88.45 kg Hardeep Magaly Other [employer] Other 07-11-2021 12:15-0400 Diastolic blood pressure 80 mm[Hg] Hardeep Magaly Other [employer] Other 07-11-2021 12:15-0400 Respiratory rate 20 /min Hardeep Magaly Other [employer] Other 07-11-2021 12:15-0400 SaO2% (BldA) [Mass fraction] 96 % Hardeep Magaly Other [employer] Other 07-11-2021 12:15-0400 Systolic blood pressure 130 mm[Hg] Hardeep Magaly Other [employer] Other 06-22-2021 14:00-0400 Body height 165.1 cm Hardeep Magaly Other [employer] Other 06-22-2021 14:00-0400 Body mass index (BMI) [Ratio] 32.78 kg/m2 Hardeep Magaly Other [employer] Other 06-22-2021 14:00-0400 Body temperature 98.9 [degF] Hardeep Magaly Other [employer] Other 06-22-2021 14:00-0400 Body weight 89.36 kg Hardeep Magaly Other [employer] Other 06-22-2021 14:00-0400 Diastolic blood pressure 82 mm[Hg] Haredep Magaly Other [employer] Other 06-22-2021 14:00-0400 Respiratory rate 20 /min Hardeep Magaly Other [employer] Other 06-22-2021 14:00-0400 SaO2% (BldA) [Mass fraction] 97 % Hardeep Magaly Other [employer] Other 06-22-2021 14:00-0400 Systolic blood pressure 126 mm[Hg] Hardeep Magaly Other [employer] Other 05-09-2021 12:30-0500 Body height 165.1 cm Tonia Hawkinsdarrensunny Other [employer] Other 05-09-2021 12:30-0500 Body mass index (BMI) [Ratio] 31.61 kg/m2 Tonia Hawkinsmode Other [employer] Other 05-09-2021 12:30-0500 Body temperature 97.7 [degF] Tonia Ceasar Other [employer] Other 05-09-2021 12:30-0500 Body weight 86.18 kg Tonia Ceasar Other [employer] Other 05-09-2021 12:30-0500 Diastolic blood pressure 74 mm[Hg] Tonia Mcdonough Other [employer] Other 05-09-2021 12:30-0500 SaO2% (BldA) [Mass fraction] 98 % Tonia Mcdonough Other [employer] Other 05-09-2021 12:30-0500 Systolic blood pressure 155 mm[Hg] Tonia Mcdonough Other [employer] Other 01-03-2021 11:00-0400 Body height 165.1 cm Royce Buehrer Other [employer] Other 01-03-2021 11:00-0400 Body mass index (BMI) [Ratio] 31.61 kg/m2 Royce Buehrer Other [employer] Other 01-03-2021 11:00-0400 Body temperature 97.8 [degF] Royce Buehrer Other [employer] Other 01-03-2021 11:00-0400 Body weight 86.18 kg Royce Buehrer Other [employer] Other 01-03-2021 11:00-0400 Diastolic blood pressure 97 mm[Hg] Royce Buehrer Other [employer] Other 01-03-2021 11:00-0400 Systolic blood pressure 199 mm[Hg] Royce Buehrer Other [employer] Other 12-13-2020 12:00-0400 Body height 165.1 cm Royce Buehrer Other [employer] Other 12-13-2020 12:00-0400 Body mass index (BMI) [Ratio] 31.61 kg/m2 Royce Buehrer Other [employer] Other 12-13-2020 12:00-0400 Body temperature 97.7 [degF] Royce Haleyrer Other [employer] Other 12-13-2020 12:00-0400 Body weight 86.18 kg Royce Haleyrer Other [employer] Other 12-13-2020 12:00-0400 Diastolic blood pressure 88 mm[Hg] Royce Haleyrer Other [employer] Other 12-13-2020 12:00-0400 SaO2% (BldA) [Mass fraction] 97 % Royce Haleyrer Other [employer] Other 12-13-2020 12:00-0400 Systolic blood pressure 150 mm[Hg] Royce Haleyrer Other [employer] Other 01-13-2019 12:26-0500 BMI (Body Mass Index) 30.5 kg/m2 [facility] 01-13-2019 12:26-0500 Body weight 88.45 kg [facility] 01-13-2019 12:26-0500 Height 170.18 cm [facility] 01-13-2019 11:41-0500 Body Temperature 97.6 [degF] [facility] 01-13-2019 11:41-0500 BP Diastolic 70 mm[Hg] [facility] 01-13-2019 11:41-0500 BP Systolic 116 mm[Hg] [facility] 01-13-2019 11:41-0500 Pulse (Heart Rate) 68 /min [facility] 01-13-2019 11:41-0500 Respiratory Rate 16 /min [facility]ep Mckenzie [facility] 12-18-2018 08:21-0400 Body Temperature 97.9 [degF] [facility] [place] 12-18-2018 08:21-0400 BP Diastolic 64 mm[Hg] [place], [place] 12-18-2018 08:21-0400 BP Systolic 138 mm[Hg] [place] 12-18-2018 08:21-0400 Pulse (Heart Rate) 66 /min [place], [place] 12-18-2018 08:21-0400 Pulse Oximetry 98 % [place] 12-18-2018 08:21-0400 Respiratory Rate 15 /min [place] 12-18-2018 06:00-0400 BMI (Body Mass Index) 31.76 kg/m2 [place] 12-18-2018 06:00-0400 Body weight 89.27 kg [place] 12-14-2018 23:15-0400 Height 167.6 cm [place] Encounters Encounter Date Encounter Type Care Provider Facility Start: 09-06-2023 End: 09-06-2023 Nursing evaluation of patient and report Neurosurgery Rn [facility] Neurosurgery Comment on above: Subdural hematoma (H CC) (Primary Dx) Start: 09-05-2023 End: 09-05-2023 Subsequent hospital visit by physician Mh Ip/Op Ct Scan Main 2(Edge) [facility] Radiology CT Comment on above: SDH (subdural hemato ma) (HCC) Start: 09-03-2023 End: 09-03-2023 ambulatory [facility] Center Work Phone: Start: 09-03-2023 End: 09-03-2023 Patient encounter procedure [facility] Cardiology Work Phone: Start: 08-30-2023 End: 08-30-2023 Office outpatient new 20 minutes Kymberly Cabrera [employer] Work Phone: [facility] Urology Comment on above: Postoperative urinar y retention (Primary Dx); Kunz catheter in place; Urinary retention Start: 08-30-2023 End: 08-30-2023 ambulatory KYMBERLY CABRERA [facility] Start: 08-22-2023 End: 08-22-2023 Evaluation and management of inpatient Gavino Cotter MD Work Phone: [facility] Radiology Comment on above: Arrived Start: 08-22-2023 Evaluation and manag ement of inpatient [facility] Facility:[facility] Start: 08-17-2023 End: 08-17-2023 Evaluation and management of inpatient Gavino Cotter MD Work Phone: [facility] Radiology Comment on above: Arrived Start: 08-16-2023 End: 08-16-2023 Evaluation and management of inpatient Gavino Cotter MD Work Phone: [facility] Radiology Start: 08-15-2023 End: 08-16-2023 Evaluation and management of inpatient Gavion Cotter MD Work Phone: [facility] Inpatient Neurophysiology Comment on above: Arrived Start: 08-14-2023 End: 08-14-2023 Evaluation and management of inpatient Gavino Cotter MD Work Phone: [facility] Radiology CT Comment on above: Arrived Start: 08-13-2023 End: 08-13-2023 ambulatory Annetta Christine [facility] Care Management/Patient Access Start: 08-13-2023 End: 08-13-2023 Coordination of care plan [facility] Ca re Management/Patient Access Comment on above: SNF/Hospice; Care Co ordination; Transition Of Care; Medical Record Review Start: 08-13-2023 End: 08-24-2023 Evaluation and management of inpatient [facility] Facility:[facility] Start: 08-12-2023 End: 08-24-2023 Evaluation and management of inpatient Ross Castorena MD Work Phone: [facility] [employer] Comment on above: SDH (subdural hemato ma) (HCC) (Primary Dx); Altered mental status, unspecified altered mental status type; Acute pain due to trauma; Encephalopathy; Urinary retention; Polypharmacy Start: 08-12-2023 End: 08-12-2023 Emergency department patient visit James Nguyen Facility:[facility] Start: 08-12-2023 End: 08-12-2023 E.D. Visit Palmer Daniel YOGA TEACHER Work Phone: [facility] [employer] Comment on above: Trauma 2 Start: 08-12-2023 Emergency department patient visit EVERT PERKINS Facility:[facility] Start: 08-09-2023 End: 08-09-2023 ambulatory [place]ry Park RN [facility] Care Management/Patient Access Start: 08-09-2023 End: 08-09-2023 Coordination of care plan Corry Park RN [facility] Ca re Management/Patient Access Comment on above: Transitional Care Ma nagement; Care Coordination SNF/Hospice; Care Co ordination; Transition Of Care; Medical Record Review Start: 08-08-2023 Non-patient / Non-visit [facility] [employer] Work Phone: Start: 07-29-2023 End: 08-04-2023 Evaluation and management of inpatient STACIA DWYER Facility:[facility] Start: 07-29-2023 End: 07-29-2023 E.D. Visit Lacey HARRELL Work Phone: [facility] [employer] Comment on above: Trauma/complex Medic al Situation Start: 07-29-2023 End: 08-04-2023 Evaluation and management of inpatient Janny Perez MD Work Phone: [facility] [place] A Comment on above: Subdural hematoma (H CC) (Primary Dx); Fall, initial encounter; Abnormal electrocardiogram (ECG) (EKG); Abnormal electrocardiogram (ECG) (EKG); Acute pain due to trauma; Midline shift of brain Start: 07-29-2023 Emergency department patient visit Stacia Dwyer Facility:[facility] Start: 07-29-2023 End: 07-29-2023 Emergency department patient visit Stacia Dwyer [facility] Start: 07-29-2023 Emergency department patient visit UNKNOWN PROVIDER Facility:[facility] Start: 07-29-2023 Evaluation and manag ement of inpatient UNKNOWN PROVIDER Facility:[facility] Start: 07-18-2023 End: 07-19-2023 ambulatory Lima ROSAS Facility:[facility] Start: 07-18-2023 End: 07-18-2023 Patient encounter procedure Lima Alex RALPH [facility] Start: 07-17-2023 Non-patient / Non-visit Community Health Physician [facility] [place] Work Phone: Start: 07-16-2023 End: 07-16-2023 ambulatory DO Hardeep Mckenzie Work Phone: [facility] Work Phone: Start: 07-16-2023 End: 07-16-2023 Patient encounter procedure DO Hardeep Mckenzie Work Phone: [facility] [place] Work Phone: Start: 07-13-2023 End: 07-14-2023 Emergency department patient visit Hank Beard Facility:[facility] Start: 07-13-2023 End: 07-13-2023 Emergency department patient visit Hank Beard [facility] Start: 07-09-2023 End: 07-11-2023 Evaluation and management of inpatient Dyan Alatorre Facility:[facility] Start: 07-08-2023 End: 07-11-2023 Evaluation and management of inpatient Alejandra Summers [facility] Start: 07-06-2023 End: 07-06-2023 ambulatory HARDEEP KERNES Facility:[facility] Start: 07-06-2023 End: 07-06-2023 Patient encounter procedure Delfin Dow CAMERA MAKER.WEB PROGRAMMER Work Phone: [facility] Comment on above: SAH (subarachnoid he morrhage) (HCC) (Primary Dx); Cerebral amyloid angiopathy (CODE); Nontraumatic subarachnoid hemorrhage (HCC); Morbid obesity (HCC) Start: 06-29-2023 End: 06-29-2023 ambulatory HARDEEP GRACIA MAGALY Facility:[facility] Start: 06-29-2023 End: 06-29-2023 Patient encounter procedure Christopher Casarez CAMERA MAKER.WEB PROGRAMMER Work Phone: Endovascular Center Comment on above: SAH (subarachnoid he morrhage) (HCC) (Primary Dx); Anxiety attack; Physical deconditioning Start: 06-28-2023 End: 06-28-2023 ambulatory DO Hardeep Solano Magaly Work Phone: [facility] Work Phone: Start: 06-28-2023 End: 06-28-2023 Patient encounter procedure DO Hardeep Magaly Work Phone: Community Health Physician [facility] Work Phone: Start: 06-25-2023 End: 06-25-2023 Emergency department patient visit Hank Beard Facility:[facility] Start: 06-25-2023 End: 06-25-2023 Emergency department patient visit Hank Beard [facility] Start: 06-25-2023 Non-patient / Non-visit DO Set h Magaly Work Phone: [facility] [employer] Work Phone: Start: 06-22-2023 Non-patient / Non-visit DO Set h Magaly Work Phone: [facility] [employer] Work Phone: Start: 06-21-2023 End: 06-21-2023 Emergency department patient visit Stacia Dwyer Facility:[facility] Start: 06-21-2023 End: 06-21-2023 Emergency department patient visit Stacia Dwyer [facility] Start: 06-19-2023 End: 06-19-2023 ambulatory DO Hardeep Mckenzie Work Phone: [facility] Work Phone: Start: 06-19-2023 End: 06-19-2023 Patient encounter procedure DO Hardeep Mckenzie Work Phone: [facility] Cardiology Work Phone: Start: 06-18-2023 End: 06-18-2023 Emergency department patient visit Reshma Ramirez Facility:[facility] Start: 06-18-2023 Telephone encounter Neurology Provid er [facility] Comment on above: Symptoms (Blood pres sure is high) medication concern ( seizure meds) Start: 06-18-2023 End: 06-18-2023 [facility] Start: 06-17-2023 End: 06-17-2023 [facility] Start: 06-17-2023 End: 06-17-2023 Emergency department patient visit [facility] Start: 06-16-2023 End: 06-16-2023 Emergency department patient visit James Nguyen Facility:[facility] Start: 06-16-2023 End: 06-16-2023 Emergency department patient visit James Nguyen [facility] Start: 06-15-2023 End: 06-16-2023 ambulatory HARDEEP MCKENZIE Facility:[facility] Start: 06-15-2023 End: 06-15-2023 Patient encounter procedure Noé Lilly MD Work Phone: Neurology Comment on above: Nonspecific abnormal electroencephalogram (EEG) (Primary Dx); Seizure (HCC); Morbid obesity (HCC) Start: 06-14-2023 End: 06-14-2023 Emergency department patient visit Do Montez Facility:[facility] Start: 06-14-2023 End: 06-14-2023 Emergency department patient visit Do Montez [facility] Start: 06-13-2023 Non-patient / Non-visit DO Set h Magaly Work Phone: Community Health Physician [facility] [employer] Work Phone: Start: 06-08-2023 End: 06-08-2023 Emergency department patient visit James Nguyen Facility:[facility] Start: 06-08-2023 End: 06-08-2023 Emergency department patient visit James Nguyen [facility] Start: 06-05-2023 Non-patient / Non-visit DO Set h Magaly Work Phone: [facility] [employer] Work Phone: Start: 05-30-2023 End: 05-30-2023 ambulatory DO Hardeep M. Magaly Work Phone: [facility] Work Phone: Start: 05-30-2023 End: 05-30-2023 Patient encounter procedure DO Hardeep Magaly Work Phone: Community Health Physician [facility] Cardiology Work Phone: Start: 05-29-2023 End: 05-29-2023 ambulatory ANIKET GARCES Not Available Start: 05-28-2023 Telephone encounter Kerry gonzalez APRN.WEB PROGRAMMER Work Phone: [facility] Comment on above: Results Start: 05-28-2023 End: 05-29-2023 ambulatory ROCIO MARINELLI Facility:[facility] Start: 05-28-2023 End: 05-28-2023 Patient encounter procedure ROCIO MARINELLI [facility] Start: 05-25-2023 End: 05-25-2023 ambulatory HARDEEP GRACIA MAGALY Facility:[facility] Start: 05-25-2023 End: 05-25-2023 Patient encounter procedure Tiff Draper OD Work Phone: Ophthalmology Comment on above: 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); PCO (posterior capsular opacification), right; Pseudophakia, right eye; Retinal hemorrhage of left eye; Chorioretinal scar of left eye; Combined form of age-related cataract, left eye Start: 05-14-2023 End: 05-14-2023 Patient encounter procedure DO Hardeep Magaly Work Phone: [facility] Work Phone: Start: 05-14-2023 Non-patient / Non-visit DO Set h Magaly Work Phone: [facility] [employer] Work Phone: Start: 05-09-2023 ambulatory Key Gracia MD Work Phone: [facility] Start: 05-09-2023 Follow-up encounter Key Gracia MD Work Phone: Endovascular Center Comment on above: 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 Follow Up (Endovascular LENY) Start: 05-08-2023 Non-patient / Non-visit DO Set h Magaly Work Phone: [facility] [employer] Work Phone: Start: 05-07-2023 Non-patient / Non-visit DO Set h Magaly Work Phone: [facility] [employer] Work Phone: Start: 05-06-2023 Non-patient / Non-visit DO Set h Magaly Work Phone: [facility] [employer] Work Phone: Start: 05-04-2023 End: 05-04-2023 Evaluation and management of inpatient HARDEEP GRACIA MAGALY Facility:[facility] Start: 05-04-2023 Non-patient / Non-visit DO Set h Magaly Work Phone: [facility] [employer] Work Phone: Start: 05-03-2023 End: 05-07-2023 Evaluation and management of inpatient HARDEEP GRACIA MAGALY Facility:[facility] Start: 05-04-2023 ambulatory Aldo Worrell CAMERA MAKER.WEB PROGRAMMER Work Phone: Critical Care Start: 05-03-2023 Non-patient / Non-visit DO Set h Magaly Work Phone: [facility] [employer] Work Phone: Start: 05-03-2023 End: 05-03-2023 Emergency department patient visit Stacia Dwyer Facility:[facility] Start: 05-03-2023 End: 05-03-2023 Emergency department patient visit Stacia Dwyer [facility] Start: 04-30-2023 End: 05-01-2023 Emergency department patient visit Valerie Ponce Facility:[facility] Start: 04-30-2023 End: 04-30-2023 Emergency department patient visit DO Hardeep Magaly Work Phone: [facility]-Emergency [facility] Work Phone: Start: 04-23-2023 End: 04-23-2023 ambulatory Hardeep Magaly Other [employer] Other Start: 04-23-2023 Telephone encounter Hardeep Magaly [facility] Start: 04-20-2023 End: 04-20-2023 Emergency department patient visit Do Montez Facility:[facility] Start: 04-20-2023 End: 04-20-2023 Emergency department patient visit Do Montez [facility] Start: 04-16-2023 End: 04-16-2023 ambulatory Theodora Michael Other [employer] Other Start: 04-16-2023 Office outpatient vi sit 25 minutes Theodora Michael [facility] Start: 04-11-2023 End: 04-11-2023 ambulatory Theodora Michael Other [employer] Other Start: 04-11-2023 Telephone encounter Tehodora Michael [facility] Start: 03-28-2023 End: 03-28-2023 ambulatory Theodora Michael Other [employer] Other Start: 03-28-2023 Telephone encounter Theodora Michael [facility] Start: 03-20-2023 End: 03-20-2023 ambulatory ANIKET GARCES Not Available Start: 03-15-2023 End: 03-15-2023 ambulatory Hardeep Magaly Other [employer] Other Start: 03-15-2023 Telephone encounter Hardeep Magaly [facility] Start: 02-16-2023 End: 02-16-2023 ambulatory Hardeep Magaly Other [employer] Other Start: 02-16-2023 Telephone encounter Hardeep Magaly [facility] Start: 02-12-2023 End: 02-12-2023 ambulatory Theodora Michael Other [employer] Other Start: 02-12-2023 Office outpatient vi sit 25 minutes Theodora Michael [facility] Start: 02-12-2023 Telephone encounter Hardeep Magaly [facility] Start: 02-12-2023 End: 02-12-2023 Patient encounter procedure DO Hardeep Magaly Work Phone: [facility] Work Phone: Start: 02-07-2023 End: 02-07-2023 ambulatory Hardeep M. Magaly Facility:[facility] Start: 02-07-2023 End: 02-07-2023 ambulatory DO Hardeep Brittany. Magaly Work Phone: [facility] Work Phone: Start: 02-07-2023 End: 02-07-2023 Patient encounter procedure DO Hardeep Magaly Work Phone: [facility] Work Phone: Start: 01-19-2023 End: 01-19-2023 ambulatory Hardeep Magaly Other [employer] Other Start: 01-19-2023 Telephone encounter Hardeep Magaly [facility] Start: 01-18-2023 End: 01-18-2023 ambulatory Theodora Rodriguez Other [employer] Other Start: 01-18-2023 Office outpatient ne w 45 minutes Theodora Rodriguez [facility] Start: 01-18-2023 Telephone encounter Theodora Rodriguez [facility] [employer] Start: 01-16-2023 End: 01-16-2023 ambulatory Hardeep Magaly Other [employer] Other Start: 01-16-2023 Telephone encounter Hardeep Magaly [facility] Start: 01-04-2023 End: 01-04-2023 ambulatory Hardeep Magaly Other [employer] Other Start: 01-04-2023 Telephone encounter Hardeep Magaly [facility] Start: 01-02-2023 End: 01-02-2023 ambulatory Hardeep Magaly Other [employer] Other Start: 01-02-2023 Telephone encounter Hardeep Magaly [facility] Start: 01-01-2023 End: 01-01-2023 ambulatory Hardeep Magaly Other [employer] Other Start: 01-01-2023 Telephone encounter Hardeep Magaly [facility] Start: 12-29-2022 End: 12-29-2022 ambulatory Hardeep Magaly Other [employer] Other Start: 12-29-2022 Telephone encounter Hardeep Magaly [facility] Start: 11-20-2022 Telephone encounter Hardeep M Rug gles Work Phone: [facility] 250 DO Work Phone: Start: 11-16-2022 End: 11-17-2022 ambulatory Lindsay Yates Facility:[facility] Start: 11-16-2022 End: 11-16-2022 Patient encounter procedure Angélica Pinoahim [facility] Start: 11-07-2022 End: 11-07-2022 Patient encounter procedure Tonia Mcdonough [facility] Vascular Surgery Start: 11-07-2022 End: 11-07-2022 ambulatory DO Hardeep M. Magaly Work Phone: [employer] Other Start: 11-02-2022 Office outpatient ne w 30 minutes Patrick Howe [facility] [place] [facility] Start: 11-02-2022 End: 11-02-2022 ambulatory DO Hardeep M. Magaly Work Phone: [facility] Work Phone: Start: 11-02-2022 End: 11-02-2022 Patient encounter procedure DO Hardeep Magaly Work Phone: [facility] Start: 11-01-2022 End: 11-01-2022 ambulatory Hardeep Magaly Other [employer] Other Start: 11-01-2022 Telephone encounter Hardeep Magaly [facility] Start: 10-06-2022 Telephone encounter Hardeep M Rug gles Work Phone: [facility] 250 DO Work Phone: Start: 09-25-2022 End: 09-25-2022 ambulatory Hardeep Magaly Other [employer] Other Start: 09-25-2022 Office outpatient vi sit 25 minutes Hardeep Magaly [facility] Start: 09-25-2022 Telephone encounter Hardeep Magaly [facility] Start: 08-23-[address] Angélica Yates Facility: Start: 08-23-2022 Office outpatient vi sit 25 minutes Hardeep M Magaly Work Phone: [facility] 600 DO Work Phone: Start: 08-23-[address] Angélica Yates Facility: Start: 08-04-[address] Joseph Garcia II Facility: Start: 08-03-[address] Hardeep Kernes Facility: Start: 08-01-2022 End: 08-04-2022 Evaluation and management of inpatient Barrett Bales Facility:[facility] Start: 08-01-2022 End: 08-04-2022 Evaluation and management of inpatient Chidi Marrero [facility] Start: 07-25-[address] Angélica Yates Facility: Start: 07-21-2022 End: 07-21-2022 ambulatory DO Hardeep M. Magaly Work Phone: [facility] Work Phone: Start: 07-21-2022 End: 07-21-2022 Patient encounter procedure DO Hardeep Magaly Work Phone: [facility] C[facility]-Ultrasound [facility] [place] Work Phone: Start: 07-04-2022 End: 07-04-2022 ambulatory Hardeep Magaly Other [employer] Other Start: 07-04-2022 Telephone encounter Hardeep Magaly [facility] Start: 06-30-2022 End: 06-30-2022 ambulatory Hardeep Magaly Other [employer] Other Start: 06-30-2022 Telephone encounter Hardeep Magaly [facility] Start: 06-29-2022 End: 06-29-2022 ambulatory Hardeep Magaly Other [employer] Other Start: 06-29-2022 Telephone encounter Hardeep Magaly [facility] Start: 06-28-[address] Angélica Yates Facility: Start: 06-27-2022 End: 06-29-2022 Observation Gordy [facility] Start: 06-20-2022 End: 06-20-2022 Patient encounter procedure HARDEEP M MAGALY [facility] Start: 06-19-2022 End: 06-19-2022 ambulatory Hardeep Magaly Other [employer] Other Start: 06-19-2022 Office outpatient vi sit 25 minutes Hardeep Magaly [facility] Start: 05-19-2022 ambulatory Lima Phani fields RT(R) Radiology Comment on above: Radiology XR Start: 05-19-2022 End: 05-19-2022 Patient encounter procedure Lima Mclean RT(R) [facility] [place] Comment on above: Contusion of right f oot, initial encounter (Primary Dx); Enthesopathy of foot; Tendonitis, Achilles, left; Calcaneal spur of left foot; Acquired dysmorphic toenail Start: 05-18-2022 End: 05-19-[address] ROLAN BEAL . Facility:[facility] Start: 04-25-2022 End: 04-25-[address] ROLAN BEAL . Facility:[facility] Start: 04-13-2022 End: 04-13-2022 ambulatory Hardeep Magaly Other [employer] Other Start: 04-13-2022 Telephone encounter Hardeep Magaly [facility] Start: 04-11-2022 End: 04-12-[address] ROLAN BEAL . Facility: Start: 04-06-2022 End: 04-06-2022 ambulatory Hardeep Magaly Other [employer] Other Start: 04-06-2022 Office outpatient vi sit 15 minutes Hardeep Magaly [facility] Start: 03-22-2022 End: 03-22-2022 Patient encounter procedure HARDEEP M MAGALY [facility] Start: 03-21-2022 End: 03-21-2022 ambulatory Hardeep Magaly Other [employer] Other Start: 03-21-2022 Office outpatient vi sit 15 minutes Hardeep Magaly [facility] Start: 03-21-2022 Telephone encounter Hardeep Magaly [facility] Start: 02-16-2022 End: 02-16-2022 ambulatory Hardeep Magaly Other [employer] Other Start: 02-16-2022 Telephone encounter Hardeep Magaly [facility] Start: 02-13-2022 End: 02-13-2022 ambulatory Hardeep Magaly Other [employer] Other Start: 02-13-2022 Office outpatient vi sit 15 minutes Hardeep Magaly [facility] Start: 02-13-2022 Telephone encounter Hardeep Magaly [facility] Start: 02-07-2022 End: 02-07-2022 ambulatory Hardeep Magaly Other [employer] Other Start: 02-07-2022 Telephone encounter Hardeep Magaly [facility] Start: 02-06-2022 Telephone encounter Hardeep Magaly [facility] Start: 02-06-2022 End: 02-06-2022 ambulatory DO Hardeep M. Magaly Work Phone: [employer] Other Start: 02-06-2022 End: 02-06-2022 Patient encounter procedure DO [facility]ep Magaly [facility] Start: 02-02-2022 End: 02-09-2022 ambulatory UNKNOWN PROVIDER Facility:[facility] Start: 02-02-2022 End: 02-02-2022 ambulatory [facility] Emergenc y Triage, Treat and Transport Start: 02-02-2022 End: 02-02-2022 Emergency department patient visit Benton Sutherland [facility] Emergency Triage, Treat and Transport Comment on above: Arrived Start: 01-31-2022 End: 02-01-[address] ROLAN BEAL . [employer] Other Start: 01-31-2022 Telephone encounter Hardeep Magaly [facility] Start: 01-18-2022 End: 01-18-2022 ambulatory Hardeep Magaly Other [employer] Other Start: 01-18-2022 Office outpatient vi sit 15 minutes Hardeep Magaly [facility] Start: 01-12-2022 End: 01-12-2022 Patient encounter procedure HARDEEP MCKENZIE [facility] Start: 01-11-2022 End: 01-11-2022 ambulatory Hardeep Magaly Other [employer] Other Start: 01-11-2022 Telephone encounter Hardeepjoi IsraelMagaly [facility] Start: 01-10-2022 End: 07-23-2022 Recurring Lindsay Yates [facility] Start: 12-29-2021 Telephone encounter Hardeep gonzaless Work [facility]: [facility] Work Phone: Start: 12-28-2021 Telephone encounter Hardeep gonzaless Work Phone: [facility] Work Phone: Start: 12-27-2021 End: 12-27-2021 ambulatory Hardeep Magaly Other [employer] Other Start: 12-27-2021 Telephone encounter Hardeep Magaly [facility] Start: 12-27-2021 End: 12-27-2021 Patient encounter procedure Ashley Angel MD Work Phone: Ophthalmology Comment on above: Retinal hemorrhage o f left eye; Chorioretinal scar of left eye; 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 Angélica Yates Facility: Start: 12-20-2021 End: 12-20-2021 ambulatory Haredep Magaly Other [employer] Other Start: 12-20-2021 Office outpatient vi sit 25 minutes Hardeep Magaly [facility] Start: 12-20-2021 End: 12-20-2021 Patient encounter procedure JIL LEE [facility] Start: 12-16-2021 End: 12-16-2021 ambulatory Hardeep Magaly Other [facility] Other Start: 12-16-2021 Telephone encounter Hardeep Magaly [facility] Start: 12-15-2021 End: 12-16-2021 Observation G[facility]y [facility] Start: 12-15-2021 End: 12-15-2021 ambulatory [facility] Emergenc y Triage, Treat and Transport Start: 12-15-2021 End: 12-15-2021 Emergency department patient visit [facility] Emergency Triage, Treat and Transport Comment on above: Arrived Start: 12-11-2021 End: 12-13-2021 Admission to same day surgery center Melissa SMITH [facility] Start: 12-05-2021 End: 12-05-2021 ambulatory Hardeep Magaly Other [employer] Other Start: 12-05-2021 Telephone encounter Hardeep Magaly [facility] Start: 12-02-2021 Chart Update Anjana roper MD Work Phone: [facility] 600 DO Work Phone: Start: 11-30-2021 End: 12-02-2021 Observation Yosefjasonkatherine SALINAS [facility] Start: 11-30-2021 End: 11-30-2021 ambulatory Hardeep Magaly Other [employer] Other Start: 11-30-2021 Telephone encounter Hardeep Magaly [facility] Start: 11-23-2021 End: 11-26-2021 Observation Roz RAMIREZ [facility] Start: 11-07-2021 End: 11-07-2021 ambulatory Royce Douglas Other [employer] Other Start: 11-07-2021 Office outpatient vi sit 25 minutes Royce Douglas [facility] Vascular Surgery Start: 11-07-2021 End: 11-07-2021 Patient encounter procedure DO Hardeep Magaly Work Phone: [facility]-Ultrasound [facility] Start: 11-01-2021 End: 11-02-[address] HARDEEP MCKENZIE Facility: Start: 08-25-2021 End: 08-25-2021 ambulatory Hardeep Magaly Other [employer] Other Start: 08-25-2021 Telephone encounter Hardeep Magaly [facility] Start: 08-22-2021 End: 08-22-2021 ambulatory Hardeep Magaly Other [employer] Other Start: 08-22-2021 Telephone encounter Hardeep Magaly [facility] [facility] Start: 08-01-2021 End: 08-01-2021 ambulatory Hardeep Magaly Other [employer] Other Start: 08-01-2021 Telephone encounter Hardeep Magaly [facility] Start: 07-25-2021 End: 07-25-2021 ambulatory Hardeep Magaly Other [employer] Other Start: 07-25-2021 Telephone encounter Hardeep Magaly [facility] Start: 07-11-2021 End: 07-11-2021 ambulatory Hardeep Magaly Other [employer] Other Start: 07-11-2021 Office outpatient vi sit 15 minutes Hardeep Magaly [facility] Start: 07-06-2021 End: 07-06-2021 ambulatory Hardeep Magaly Other [employer] Other Start: 07-06-2021 Telephone encounter Hardeep Magaly [facility] Start: 06-30-2021 ambulatory HARRIS MCINTYRE . Facility:H 1 Start: 06-22-2021 End: 06-22-2021 ambulatory Hardeep Magaly Other [employer] Other Start: 06-22-2021 Office outpatient vi sit 15 minutes Hardeep Magaly [facility] Start: 06-17-2021 End: 06-17-2021 ambulatory Hardeep Magaly Other [employer] Other Start: 06-17-2021 Telephone encounter Hardeep Magaly [facility] Start: 05-10-2021 End: 05-10-2021 ambulatory Tonia Mcdonough Other [employer] Other Start: 05-10-2021 Telephone encounter Tonia Mcdonough [facility] [employer] Start: 05-09-2021 End: 05-09-2021 ambulatory Tonia Hawkinsmode Other [employer] Other Start: 05-09-2021 Office outpatient vi sit 15 minutes Tonia Mcdonough [facility] Start: 04-08-2021 End: 04-08-2021 ambulatory Hardeep Magaly Other [employer] Other Start: 04-08-2021 Telephone encounter Hardeep Magaly [facility] Start: 04-04-2021 End: 04-04-2021 ambulatory Hardeep Magaly Other [employer] Other Start: 04-04-2021 Telephone encounter Hardeep Magaly [facility] Start: 03-29-2021 End: 03-29-2021 ambulatory Hardeep Magaly Other [employer] Other Start: 03-29-2021 Telephone encounter Hardeep Magaly [facility] Start: 03-08-2021 End: 03-08-2021 ambulatory Hardeep Magaly Other [employer] Other Start: 03-08-2021 Telephone encounter Hardeep Magaly [facility] Start: 02-23-2021 End: 02-23-2021 ambulatory Hardeep Magaly Other [employer] Other Start: 02-23-2021 Telephone encounter Hardeep Magaly [facility] Start: 02-02-2021 End: 02-02-2021 ambulatory Hardeep Magaly Other [employer] Other Start: 02-02-2021 Telephone encounter Hardeep Magaly [facility] Start: 01-24-2021 End: 01-24-2021 ambulatory Hardeep Kernes Other [employer] Other Start: 01-24-2021 Telephone encounter Hardeep Mckenzie [facility] Start: 01-10-2021 End: 01-10-2021 ambulatory Hardeep Mckenzie Other [employer] Other Start: 01-10-2021 Telephone encounter Hardeep Kernes [facility] Start: 01-07-2021 Telephone encounter Royce Haleyyolandekatherine [facility] Vascular Surgery Start: 01-06-2021 Telephone encounter Hardeep Mckenzie [facility] Start: 01-03-2021 Follow-up encounter Royce Haleydaisy [facility] Vascular Surgery Start: 12-13-2020 FQ visit new patient Royce Balderrama er [facility] Vascular Surgery Start: 01-17-2019 End: 01-17-2019 Patient encounter procedure Hardeep Mckenzie -Pre-Surgica l Testing Start: 01-13-2019 Registered Recurring Hardeep Mckenzie -[facility] [place] Start: 01-03-2019 End: 01-03-2019 Patient encounter procedure [facility]ck[facility] Start: 12-25-2018 End: 12-25-2018 Patient encounter procedure Hardeep Mckenzie -[facility] Start: 12-15-2018 End: 12-18-2018 Evaluation and management of inpatient ELIAS CELESTIN [facility] Start: 12-14-2018 End: 12-18-2018 Evaluation and management of inpatient Elizabeth Corado [facility] Start: 11-19-2018 Registered Recurring Hardeep Mckenzie -P hysical Therapy [place] Start: 11-29-2017 End: 11-29-2017 Patient encounter procedure Hardeep Mckenzie -[facility] Start: 08-22-2017 End: 09-09-2017 Ambulatory HARDEEP MCKENZIE Facility:[facility] Start: 08-22-2017 End: 08-23-2017 Ambulatory ANIKET GUDINO Facility:[facility] Start: 08-07-2017 End: 06-02-2018 Ambulatory AGUILAR STEVENS Facility:[facility] Procedures Date Procedure Procedure Detail Performing Clinician Start: 09-05-2023 Ct head/brain w/o co ntrast material Derick Edwards [employer] Work Phone: Start: 08-23-2023 Assay of magnesium Shubham Jesus MD Work Phone: Start: 08-22-2023 Radiologic exam abdo men 1 view Og Saldana MD Work Phone: Start: 08-22-2023 Radiologic exam abdo men 1 view Johann Hernandez MD Work Phone: Start: 08-22-2023 Assay of magnesium Shubham Jesus MD Work Phone: Start: 08-21-2023 Assay of magnesium Shubham Jesus MD Work Phone: Start: 08-20-2023 Assay of magnesium Shubham Jesus MD Work Phone: Start: 08-18-2023 Assay of magnesium Shubham Jesus MD Work Phone: Start: 08-17-2023 Basic metabolic pane l calcium total Ronnie Jesus MD Work Phone: Start: 08-17-2023 Mri brain brain stem w/o contrast material Ronnie Jesus MD Work Phone: Start: 08-17-2023 Assay of magnesium Shubham Jesus MD Work Phone: Start: 08-16-2023 Assay of magnesium Shubham Jesus MD Work Phone: Start: 08-16-2023 Eeg cont rec w/video by tech min 8 channels Luis Barbosa MD Work Phone: Start: 08-16-2023 Radiologic exam abdo men 1 view Ronnie Jesus MD Work Phone: Start: 08-16-2023 Radiologic exam ches t single view Ronnie Jesus MD Work Phone: Start: 08-16-2023 End: 08-16-2023 Radiologic exam abdomen 1 view Ronnie Jesus MD Work Phone: Start: 08-16-2023 End: 08-16-2023 Radiologic exam chest single view Ronnie Jesus MD Work Phone: Start: 08-16-2023 Assay of magnesium Shubham Jesus MD Work Phone: Start: 08-15-2023 Slctv cath carotid/i nnom art angio intrcranl art Viviana Ranchod PA-C Work Phone: Start: 08-15-2023 Transcatheter emboli zation any meth rs&i Viviana Ranchod PA-C Work Phone: Start: 08-15-2023 Assay of magnesium Tamia Alcala PA-C Work Phone: Start: 08-14-2023 Ct head/brain w/o co ntrast material Toshia Louise PA-C Work Phone: Start: 08-14-2023 Assay of lactate Leanne Ochoa MD Work Phone: Start: 08-14-2023 Blood gases any comb ination ph pco2 po2 co2 hco3 Jeremiah Ochoa MD Work Phone: Start: 08-14-2023 Carboxyhemoglobin measurement Jeremiah Ochoa MD Work Phone: Start: 08-14-2023 End: 08-14-2023 KATTY HOLES, HEMATOMA EVACUATION Artem Li MD Work Phone: Start: 08-14-2023 Assay of magnesium Viviana Ranchod PA-C Work Phone: Start: 08-13-2023 Thromboplastin time partial plasma/whole blood Viviana Ranchod PA-C Work Phone: Start: 08-13-2023 Glucose blood reagent strip Sammie Barriga MD Work Phone: Start: 08-13-2023 Glucose blood reagent strip Gavino Cotter MD Work Phone: Start: 08-13-2023 YELLOW TOP TUBE, URINE Gavino Cotter MD Work Phone: Start: 08-13-2023 Urnls dip stick/tabl et rgnt auto w/o microscopy Richie Emmanuel MD Work Phone: Start: 08-13-2023 EXTRA TUBE Gavino ruiz MD Work Phone: Start: 08-13-2023 GREEN LIHEP TOP TUBE, BLOOD Gavino Cotter MD Work Phone: Start: 08-13-2023 LIGHT BLUE TOP TUBE, BLOOD Gavino Cotter MD Work Phone: Start: 08-13-2023 Assay of magnesium Agnieszka Moctezuma DO Work Phone: Start: 08-12-2023 Ct head/brain w/o co ntrast material Ross Castorena MD Work Phone: Start: 08-12-2023 Radiology Comparison study - date and time Rajinder Reymundo DO Work Phone: Start: 08-12-2023 Assay of lactate Marlee Castorena MD Work Phone: Start: 08-12-2023 Blood typing, ABO, R ho(D) and RBC antibody screening Ross Castorena MD Work Phone: Start: 08-12-2023 Drug screen quantita tive alcohols Ross Castorena MD Work Phone: Start: 08-03-2023 Assay of magnesium Dominick Sanchez MD Work Phone: Start: 08-02-2023 Cyanocobalamin vitamin b-12 Mohini Nguyễn [employer] Work Phone: Start: 08-01-2023 Assay of magnesium Dominick Sanchez MD Work Phone: Start: 07-31-2023 End: 07-31-2023 Ecg routine ecg w/least 12 lds trcg only w/o i&r Yunior Sanchez MD Work Phone: Start: 07-31-2023 Assay of magnesium Dominick Sanchez MD Work Phone: Start: 07-30-2023 End: 07-30-2023 Radiology Comparison study - date and time Vickie Hummel PA-C Work Phone: Start: 07-30-2023 Assay of magnesium Dominick Sanchez MD Work Phone: Start: 07-29-2023 Ct head/brain w/o co ntrast material Yunior Sanchez MD Work Phone: Start: 07-29-2023 Thromboplastin time partial plasma/whole blood Vickie Hummel PA-C Work Phone: Start: 07-29-2023 Blood typing serologic abo Vickie Hummel PA-C Work Phone: Start: 07-29-2023 Ct head/brain w/o co ntrast material Vickie Hummel PA-C Work Phone: Start: 07-29-2023 Assay of lactate Janny Perez MD Work Phone: Start: 07-29-2023 Blood typing, ABO, R ho(D) and RBC antibody screening Janny Perez MD Work Phone: Start: 07-29-2023 Drug screen quantita tive alcohols Janny Perez MD Work Phone: Start: 05-25-2023 Computerized ophthal edu imaging retina Tiff Draper OD Work Phone: Start: 05-03-2023 Antibody screen HARDEEP QUEZADA Comment on above: Order Comment: Speci men Type: BLOOD SPECIMENOrdering Facility: [facility] Address: [address] [place] [address] Performed By: #### T SCR ####CC MAIN BLOOD BANKIA [id number] [address] [place] Start: 04-30-2023 Duplex scan of lower limb veins DO Hardeep Magaly Work Phone: Start: 04-30-2023 Plain chest X-ray DO Se th Magaly Work Phone: Start: 02-07-2023 Screening mammograph y of bilateral breasts DO Hardeep Magaly Work Phone: Start: 11-02-2022 Plain X-ray of left humerus DO Hardeep Magaly Work Phone: Start: 11-02-2022 Plain X-ray of left shoulder DO Hardeep Magaly Work Phone: Start: 02-06-2022 Screening mammograph y of bilateral breasts DO Hardeep Magaly Work Phone: Start: 12-27-2021 Computerized ophthal edu imaging retina Ashley Angel MD Work Phone: Start: 11-24-2021 Percutaneous coronar y intervention Roz RAMIREZ Comment on above: PCI of RCA PCI of RCA Start: 11-07-2021 Doppler ultrasonogra phy of bilateral carotid arteries DO Hardeep Magaly Work Phone: Start: 01-06-2019 End: 01-06-2019 Aerobic microbial culture Hardeep Magaly Start: 01-06-2019 End: 01-06-2019 Anaerobic microbial culture Hardeep Magaly Start: 01-06-2019 Investigation of tra nsfusion reaction Hardeep Magaly Start: 01-03-2019 Screening mammography S eth Magaly Start: 12-25-2018 X-ray of right knee Set h Magaly Start: 12-18-2018 Basic metabolic pane l calcium total ELIAS CELESTIN Start: 12-18-2018 Cul bact stool aerob ic isol salmonella&shigell ELIAS CELESTIN Start: 12-18-2018 Lactoferrin fecal qualitative ELIAS CELESTIN Start: 12-18-2018 IP CONSULT TO HOME CARE NEEDS ELIAS CELESTIN Start: 12-18-2018 DISCHARGE PATIENT DEANDRE CELESTIN Start: 12-18-2018 INITIATE OXYGEN THER APY PROTOCOL ELIAS CELESTIN Start: 12-18-2018 Basic metabolic pane l calcium total ELIAS CELESTIN Start: 12-18-2018 Blood count complete automated ELIAS CELESTIN Start: 12-18-2018 Basic metabolic pane l calcium total Laurie Lemus Work Phone: Start: 12-18-2018 Blood count complete automated Laurie Lemus Work Phone: Start: 12-17-2018 IP CONSULT TO INFECT IOUS DISEASES ELIAS CELESTIN Start: 12-17-2018 Drug screen quantita tive vancomycin ELIAS CELESTIN Start: 12-17-2018 Drug screen quantita tive vancomycin Showkat Ahmad Start: 12-17-2018 INITIATE OXYGEN THER APY PROTOCOL ELIAS CELESTIN Start: 12-17-2018 Basic metabolic pane l calcium total ELIAS CELESTIN Start: 12-17-2018 Blood count complete automated ELIAS CELESTIN Start: 12-17-2018 Calcium ionized ELIAS CELESTIN Start: 12-17-2018 Basic metabolic pane l calcium total Laurie Lemus Work Phone: Start: 12-17-2018 Blood count complete automated Showkat Ahmad Start: 12-17-2018 Calcium ionized Laurie Lemus Work Phone: Start: 12-16-2018 INITIATE OXYGEN THER APY PROTOCOL ELIAS CELESTIN Start: 12-16-2018 Blood count complete auto&auto difrntl wbc ELIAS CELESTIN Start: 12-16-2018 Comprehensive metabolic panel ELIAS CELESTIN Start: 12-16-2018 BASIC METABOLIC PANE L W/ REFLEX TO MG FOR LOW K Dirk Pedro Work Phone: Start: 12-16-2018 Blood count complete auto&auto difrntl wbc Dirk Pedro Work Phone: Start: 12-15-2018 C-reactive protein JT CELESTIN Start: 12-15-2018 Sedimentation rate r bc automated ELIAS CELESTIN Start: 12-15-2018 WOUND CARE ELIAS BRADLEY Start: 12-15-2018 Radiologic examinati on knee 3 views ELIAS CELESTIN Start: 12-15-2018 C-reactive protein Michael Garcia Work Phone: Start: 12-15-2018 Sedimentation rate r bc automated Michael Garcia Work Phone: Start: 12-15-2018 IP CONSULT TO ORTHOP EDIC SURGERY ELIAS CELESTIN Start: 12-15-2018 Radiologic examinati on knee 3 views Michael Garcia Work Phone: Start: 12-15-2018 DIETARY NUTRITION SUPPLEMENTS ELIAS CELESTIN Start: 12-15-2018 Assay of magnesium JT CELESTIN Start: 12-15-2018 Assay of phosphorus inorganic ELIAS CELESTIN Start: 12-15-2018 Blood count complete auto&auto difrntl wbc ELIAS CELESTIN Start: 12-15-2018 Blood count complete automated ELIAS CELESTIN Start: 12-15-2018 Calcium ionized ELIAS CELESTIN Start: 12-15-2018 Drug screen quantita tive vancomycin ELIAS CELESTIN Start: 12-15-2018 Prothrombin time ELIAS CELESTIN Start: 12-15-2018 Assay of magnesium Show adela Ahmad Start: 12-15-2018 Assay of phosphorus inorganic Showkat Ahmad Start: 12-15-2018 Blood count complete auto&auto difrntl wbc Showkat Ahmad Start: 12-15-2018 Blood count complete automated Showkat Ahmad Start: 12-15-2018 Calcium ionized Showkat Ahmad Start: 12-15-2018 Drug screen quantita tive vancomycin Showkat Ahmad Start: 12-15-2018 Prothrombin time Showka t Ahmad Start: 12-15-2018 INITIATE OXYGEN THER APY PROTOCOL ELIAS CELESTIN Start: 12-15-2018 Cul prsmptv pthgnc o rganism scrn w/colony estimj ELIAS CELESTIN Start: 12-15-2018 Assay of lactate ELIAS HERNANDEZAWAJA Start: 12-15-2018 Culture bacterial bl ood aerobic w/id isolates ELIAS HERNANDEZAWAJA Start: 12-15-2018 DAILY WEIGHTS ELIAS PARDO Start: 12-15-2018 DIET GENERAL ELIAS BRADLEY Start: 12-15-2018 WOUND OSTOMY EVAL AND TREAT ELIAS CELESTIN Start: 12-15-2018 PHARMACY TO DOSE VANCOMYCIN ELIAS CELESTIN Start: 12-15-2018 PLACE INTERMITTENT P NEUMATIC COMPRESSION DEVICE ELIAS CELESTIN Start: 12-15-2018 FULL CODE ELIAS BRADLEY Start: 12-15-2018 INITIATE OXYGEN THER APY PROTOCOL ELIAS CELESTIN Start: 12-15-2018 INTAKE AND OUTPUT DEANDRE CELESTIN Start: 12-15-2018 NOTIFY PHYSICIAN (SPECIFY) ELIAS CELESTIN Start: 12-15-2018 OT EVAL AND TREAT DENADRE CELESTIN Start: 12-15-2018 PT EVAL AND TREAT DEANDRE CELESTIN Start: 12-15-2018 TELEMETRY MONITORING ABBEY CELESTIN Start: 12-15-2018 VITAL SIGNS ELIAS BRADLEY Start: 12-15-2018 LACTATE, SEPSIS Showkat Ahmad Start: 12-14-2018 PATIENT STATUS (DIRECT) ELIAS CELESTIN Start: 03-12-2003 Ophthalmic surgery ( qualifier value) Melissa SMITH Back sx Hasan AMIR begnign tumor removal Hasan AMIR Bilateral knee sx Hasan AMIR bilateral shoulder sx Hasan AMIR Biopsy of breast Hardeep M Christiano les Work Phone: left foot reconstruction Has an AMIR Operative procedure on knee Hardeep M Magaly Work Phone: pharygeal plasty Hasan AMIR Procedure on back Hardeep M Rug gles Work Phone: Repair of shoulder Hardeep M Ru ggles Work Phone: Specimen from breast obtained by biopsy (specimen) Hasan AMIR Surgical procedure o n eye proper Hardeep Soto Magaly Work Phone: Tonsillectomy Hardeep Soto Magaly Work Phone: Plan of Treatment Date Care Activity Detail Author Start: 02-23-2031 Tetanus vaccination Tetanus (Td or Tdap) Booster [facility] Start: 02-23-2031 Urine microalbumin profile DTaP,Tdap,Td Vaccine (5 - Td or Tdap) [facility] Start: 06-19-2027 DTaP/Tdap/Td vaccine (3 - Td) DTaP/Tdap/Td vaccine (3 - Td) [place] Start: 05-07-2026 Diabetes Screening Diabetes Screening [facility] Start: 05-03-2026 Diabetes Screening Diabetes Screening [facility] Start: 08-22-2024 Creatinine measurement Basic Metabolic Panel [facility] Start: 05-03-2024 Hepatitis B surface antibody level LDL Cholesterol [facility] Start: 11-11-2023 Influenza vaccination Influenza Vaccine (Season Ended) [facility] Start: 11-07-2023 End: 11-07-2023 Patient encounter procedure 11/07/2023 10:15 AM EDT Office Visit [address] [facility] [address] [address] Artem Li MD [address] [place] [address] [facility] Start: 10-26-2023 End: 10-26-2023 Patient encounter procedure 10/26/2023 3:00 PM EDT Office Visit Neurology [address] [place] [address] Noé Lilly MD [address] [place] [address] follow up Neurology Comment on above: follow up Start: 09-06-2023 End: 09-06-2023 Nursing evaluation of patient and report 09/06/2023 10:00 AM EDT Nurse Visit [facility] Neurosurgery [address] [place] [address] [facility] Start: 09-05-2023 End: 09-05-2023 Patient encounter procedure 09/05/2023 9:15 AM EDT Appointment [facility] [address] [place] [address] [facility] Start: 08-24-2023 End: 08-23-2024 CT Head WO contrast CT HEAD W/O CONTRAST Imaging Routine SDH (subdural hematoma) (HCC) Expected: 08/24/2023, Expires: 08/23/2024 [email or web address] Work Phone: Comment on above: Expected: 08/24/2023, Expires: Start: 08-22-2023 End: 08-22-2023 Patient encounter procedure 08/22/2023 3:30 PM EDT Office Visit [facility] Neurosurgery [address] [place] [address] [facility] Start: 08-17-2023 End: 08-17-2023 Patient encounter procedure 08/17/2023 2:10 PM EDT Appointment [facility] [address] [place] [address] [facility] [address] Start: 08-16-2023 End: 08-16-2023 Patient encounter procedure 08/16/2023 10:30 AM EDT Office Visit [facility] [address] [place] [address] Jina Miles V, MD [address] [place] [address] Yag OD with [facility] Comment on above: Yag OD with [facility] Start: 08-14-2023 End: 08-14-2023 Anesthesia consultation 08/14/2023 12:32 PM EDT Anesthesia Event [facility] Main OR [address] [place] [address] Leora Fleming MD [address] [place] [address] [facility] Main OR Start: 08-14-2023 End: 08-14-2023 KATTY HOLES, HEMATOMA EVACUATION KATTY HOLES, HEMATOMA EVACUATION Routine scheduled SDH (subdural hematoma) (HCC) 08/14/2023 12:32 PM EDT [facility] Start: 08-14-2023 End: 08-14-2023 Evaluation and management of inpatient 08/14/2023 12:32 PM EDT - 08/14/2023 3:22 PM EDT [facility] [address] [employer] [place] [place] [address] Warren Hoffman MD [address] [email or web address] [address] KATTY HOLES, HEMATOMA EVACUATION [employer] Main OR Comment on above: KATTY HOLES, HEMATOMA EVACUATION Start: 07-31-2023 End: 07-30-[address] CT Head WO contrast CT HEAD W/O CONTRAST Imaging Routine Subdural hematoma (HCC) Expected: 07/31/2023, Expires: 07/30/2024 [email or web address] Work Phone: Comment on above: Expected: 07/31/2023, Expires: Start: 04-30-2023 Duplex scan of lower limb veins US venous duplex LE [facility] Start: 04-30-2023 US Lower extremity vein - [facility] Start: 03-12-2023 Advance Directive Discussion Advance Directive Discussion [facility] Start: 03-12-2023 Behavioral Health Screening Behavioral Health Screening [facility] Start: 03-12-2023 Depression Assessment Depression Assessment [facility] Start: 11-10-2022 Covid-19 Vaccine ( season) Covid-19 Vaccine ( season) [facility] Start: 11-10-2022 Influenza vaccination Influenza Vaccine (#1) [facility] Start: 11-07-2022 Doppler ultrasonography of bilateral carotid arteries US carotid doppler [facility] Start: 11-07-2022 US.doppler Carotid arteries - [facility] Start: 07-25-2022 FUV, Provider: Angélica Yates, Status: Pen, Time: 10:50 AM FUV, Provider: Yates,Lindsay, Status: Pen, Time: 10:50 AM [facility] 600 DO Work Phone: Start: 03-12-2022 ADVANCE DIRECTIVE DISCUSSION ADVANCE DIRECTIVE DISCUSSION [facility] Start: 03-12-2022 DEPRESSION ASSESSMENT DEPRESSION ASSESSMENT [facility] Start: 12-22-2021 FUV, Provider: Angélica Yates, Status: Pen, Time: 11:30 AM FUV, Provider: Angélica Yates, Status: Pen, Time: 11:30 AM [facility] 600 DO Work Phone: Start: 12-10-2021 Influenza vaccination Influenza Vaccine (#1) [facility] Start: 11-10-2021 Influenza vaccination INFLUENZA (#1) [facility] Start: 03-12-2021 ADVANCE DIRECTIVE DISCUSSION ADVANCE DIRECTIVE DISCUSSION [facility] Start: 03-12-2021 DEPRESSION ASSESSMENT DEPRESSION ASSESSMENT [facility] Start: 06-29-2020 COVID-19 VACCINE (3 - Booster for Moderna series) COVID-19 VACCINE (3 - Booster for Moderna series) [facility] Start: 04-04-2020 Pneumococcal vaccination Pneumococcal Vaccine(s) (65+ yrs) (2 of 2 - PCV) [facility] Start: 12-19-2019 Creatinine monitoring Creatinine monitoring [place] Start: 12-19-2019 Potassium monitoring Potassium monitoring [place] Start: 12-16-2018 Annual Wellness Visit (AWV) Annual Wellness Visit (AWV) [place] Start: 07-06-2004 BONE DENSITY BONE DENSITY [facility] Start: 07-06-2004 DEXA (modify frequency per FRAX score) DEXA (modify frequency per FRAX score) [place] Start: 07-06-2004 Pneumococcal 65+ years Vaccine (1 of 2 - PCV13) Pneumococcal 65+ years Vaccine (1 of 2 - PCV13) [place] Start: 07-06-2004 Pneumococcal vaccination [facility] Start: 07-06-2004 PNEUMOCOCCAL: 65+ (1 - PCV) PNEUMOCOCCAL: 65+ (1 - PCV) [facility] Start: 07-06-2004 Screening for osteoporosis [facility] Start: 06-10-2004 Annual wellness visit Annual Wellness Visit ([id number]) [facility] Start: 1999 Hepatitis B (HBV) Vaccine (optional start 60+ years) Hepatitis B (HBV) Vaccine (optional start 60+ years) [facility] Start: 1999 RSV Vaccine (1 - 1-dose 60+ series) RSV Vaccine (1 - 1-dose 60+ series) [facility] Start: 1999 RSV vaccine (optional 60+ years) RSV vaccine (optional 60+ years) [facility] Start: 07-06-1989 Shingles (RZV) Vaccine (1 of 2) Shingles (RZV) Vaccine (1 of 2) [facility] Start: 07-06-1989 Shingles Vaccine (1 of 2) Shingles Vaccine (1 of 2) [place] Start: 07-06-1989 SHINGRIX VACCINE (1 of 2) SHINGRIX VACCINE (1 of 2) [facility] Start: 07-06-1984 DIABETES SCREEN DIABETES SCREEN [facility] Start: 07-06-1958 Hepatitis A (HAV) Vaccine (optional start 19+ years) Hepatitis A (HAV) Vaccine (optional start 19+ years) [facility] Start: 07-06-1958 Urine microalbumin profile DTAP,TDAP,TD (1 - Tdap) [facility] Start: 07-06-1957 Spirometry Spirometry [facility] Start: 07-06-1957 Tetanus + diphtheria + acellular pertussis vaccine (product) Tdap Booster [facility] Start: 01-06-1940 COVID-19 Vaccine (#1) COVID-19 Vaccine (#1) [facility] ANAEROBIC AND AEROBI C CULTURE ANAEROBIC AND AEROBIC CULTURE Microbiology [employer] Label Print 12/15/2018 12:37 AM EDT [facility] [place] Basic metabolic 2000 panel Basic Metabolic Panel Lab Routine Daily until discontinued starting 12/17/2018, 2 [facility] [place] Comment on above: Daily until discontinued starting 2018, 2 completed KATTY HOLES, HEMATOMA EVACUATION KATTY HOLES, HEMATOMA EVACUATION Routine scheduled SDH (subdural hematoma) (HCC) [facility] CULTURE BLOOD #1 CULTURE BLOOD # 1 Microbiology Routine 12/15/2018 12:25 AM EDT [facility] [place] CULTURE BLOOD #2 CULTURE BLOOD # 2 Microbiology Routine 12/15/2018 12:30 AM EDT [facility] [place] End: 12-18-2018 Culture Stool Culture Stool Microbiology Routine One Time for 1 Occurrences starting 12/18/2018 until 12/18/2018 [facility] Comment on above: One Time for 1 Occurrences starting 11/2018 until 12/18/2018 End: 06-20-2024 EPIL EEG LONG EPIL EEG LONG NEUROLOGY Routine Nonspecific abnormal electroencephalogram (EEG) 1 Occurrences starting 06/21/2023 until 06/20/2024 [facility] Work Phone: Comment on above: 1 Occurrences starting 06/21/2023 until 06/20/2024 End: 12-18-2018 Fecal lactoferrin Fecal lactoferrin Lab Routine One Time for 1 Occurrences starting 12/18/2018 until 12/18/2018 [facility] Comment on above: One Time for 1 Occurrences starting 11/2018 until 12/18/2018 HHN Treatment HHN Treatment Re spiratory Care Routine Every 6hr As Needed until discontinued starting 12/17/2018 [facility] Comment on above: Every 6hr As Needed until discontinued s tarting 12/17/2018 Initiate Oxygen Ther apy Protocol Initiate Oxygen Therapy Protocol Respiratory Care Routine Daily until discontinued starting 12/14/2018 [facility] Comment on above: Daily until discontinued starting 2018 End: 08-04-2024 MR Brain WO and W contrast IV MRI BRAIN WO/W IVCON Radiology Routine Nontraumatic subarachnoid hemorrhage (HCC) 1 Occurrences starting 07/06/2023 until 08/04/2024 [facility] Work Phone: Comment on above: 1 Occurrences starting 07/06/2023 until 08/04/2024 Patient Education Calf Stretches [facility] Work Phone: Patient referral [facility] Work Phone: End: 12-15-2018 Wound ostomy eval and treat Wound ostomy eval and treat Wound Ostomy Routine One Time for 1 Occurrences starting 12/15/2018 until 12/15/2018 [facility] Comment on above: One Time for 1 Occurrences starting 08/2018 until 12[facility]15/2018 [facility] Immunizations Immunization Date Immunization Notes Care Provider Shira chriskatelynn 02-23-2021 tetanus toxoid, reduced diphtheria toxoid, and acellular pertussis vaccine, adsorbed Hasan AMIR [facility] 02-09-2021 influenza, injectable, quadrivalent, contains preservative Hardeep Magaly Other [facility] Other 02-09-2021 influenza, injectable, quadrivalent, preservative free DO Hardeep Magaly Work Phone: [facility] 02-09-2021 influenza virus vaccine, unspecified formulation Aldo Worrell CAMERA MAKER.WEB PROGRAMMER Work Phone: [facility] 05-04-2020 COVID-19 Moderna Hardeep Ruggle s Other [facility] Comment on above: Reason for Medicatio n: Other (see comment) Reason for Medicatio n: Other (see comment) 04-03-2020 COVID-19 Moderna Hardeep Ruggle s Other [facility] Comment on above: Reason for Medicatio n: Other (see comment) Reason for Medicatio n: Other (see comment) 02-04-2020 Seasonal trivalent influenza vaccine, adjuvanted, preservative free Hardeep M Magaly Work Phone: [facility] 600 DO Work Phone: 12-17-2019 influenza, seasonal, injectable Royce Douglas Other [facility] 04-04-2019 pneumococcal polysaccharide vaccine, 23 valent Royce Douglas Other [facility] 04-04-2019 influenza, injectable, quadrivalent, contains preservative Patient Objection Royce Douglas Other [facility] Other 12-15-2018 influenza, injectable, quadrivalent, preservative free [facility] [place] 12-15-2018 influenza quadrivalent split vaccine (FLUZONE;FLUARIX;FLU LAVAL;AFLURIA) injection 0.5 mL [facility] [place] 12-20-2017 influenza, injectable, quadrivalent, contains preservative Royce Haleyrer Other [facility] Other 12-20-2017 influenza, injectable, quadrivalent, preservative free DO Hardeep Magaly Work Phone: [facility] 06-18-2017 tetanus toxoid, reduced diphtheria toxoid, and acellular pertussis vaccine, adsorbed Royce Haleyrer Other [facility] 12-25-2016 influenza, injectable, quadrivalent, contains preservative Royce Buehrer Other [facility] Other 12-25-2016 influenza, injectable, quadrivalent, preservative free DO Hardeep Magaly Work Phone: [facility] 12-20-2015 influenza, injectable, quadrivalent, contains preservative Royce Juarezehrer Other [facility] Other 12-20-2015 influenza, injectable, quadrivalent, preservative free DO Hardeep Magaly Work Phone: [facility] 01-04-2015 influenza, injectable, quadrivalent, contains preservative Hardeep M Magaly Work Phone: [facility] 600 DO Work Phone: 03-16-2014 pneumococcal conjugate vaccine, 13 valent Royce Buehrer Other [facility] 01-13-2014 influenza, injectable, quadrivalent, contains preservative Hardeep Brittany Magaly Work Phone: [facility] 600 DO Work Phone: 12-05-2013 tetanus toxoid, reduced diphtheria toxoid, and acellular pertussis vaccine, adsorbed Hardeep Brittany Magaly Work Phone: [facility] 600 DO Work Phone: 12-26-2012 influenza, seasonal, injectable Hardeep M Magaly Work Phone: [facility] 600 DO Work Phone: 11-05-2012 tetanus toxoid, reduced diphtheria toxoid, and acellular pertussis vaccine, adsorbed Janny Perez MD Work Phone: [facility] 11-05-2012 tetanus toxoid, reduced diphtheria toxoid, and acellular pertussis vaccine, adsorbed Roz RAMIREZ [facility] Comment on above: Result Comment: left deltoid Result Comment: left deltoid 11-14-2006 hepatitis A and hepatitis B vaccine Hardeepjoi Israelgles Work Phone: [facility] 600 DO Work Phone: 12-06-1998 tetanus toxoid, adsorbed Hardeepjoi Israelgles Work Phone: [facility] 600 DO Work Phone: NEGATED: Highlighted row has not occurred! 0 influenza, injectable, quadrivalent, contains preservative Patient Objection Hardeep Mckenzie Other [employer] Other Payers Date Payer Category Payer Self-pay [id number] 2022 Unknown [id number] 2020 Private Health Insurance AETNA A ETNA MEDICARE SUPPLEMENT [id number] 2020-Present [phone] [address] [address] [place] [address] Indemnity [id number] 2020 Unknown 2018 Medicare MEDICARE MEDICAR E PART A AND B xxxxxxxxxxx 2018-Present [phone] [place] [address] xxxxxxxxxxx [id number] 2014 Private Health Insurance HUMANA HUMANA MEDICARE SUPP xxxxxxxxx 2014-Present [address] [address] [place] [address] xxxxxxxxx [id number] 2014 Private Health Insurance [id number] 2003 Medicare [id number] 1959 Medicare [id number] 1959 Private Health Insurance CLI [id number] 2.16.840.1.135679.19 1939 Unknown [id number] 2.16.840.1.685228.3.579.2 .175 1939 Unknown [id number] 2.16.840.1.252349.3.579.2 .732 1939 Unknown [id number] 2.16.840.1.391811.3.579.2 .593 1939 Unknown [id number] 2.16.840.1.100546.3.579.2 .593 1939 Unknown [id number] 2.16.840.1.747864.3.579.2 .593 1939 Unknown [id number] 2.16.840.1.080395.3.579.2 .593 1939 Unknown [id number] 2.16.840.1.364147.3.579.2 .593 1939 Unknown [id number] 2.16.840.1.498114.3.579.2 .593 1939 Unknown [id number] 2.16.840.1.108141.3.579.2 .356 1939 Unknown [id number] 2.16.840.1.624178.3.579.2 .356 1939 Unknown [id number] 2.16.840.1.839456.3.579.2 .356 1939 Unknown [id number] 2.16.840.1.183000.3.579.2 .356 1939 Unknown [id number] 2.16.840.1.157262.3.579.2 .356 1939 Unknown [id number] 2.16.840.1.233824.3.579.2 .356 1939 Unknown [id number] 2.16.840.1.520520.3.579.2 .356 1939 Unknown [id number] 2.16.840.1.294884.3.579.2 .1286 1939 Unknown [id number] 2.16.840.1.186546.3.579.2 .1286 1939 Unknown [id number] 2.16.840.1.007405.3.579.2 .1286 1939 Unknown [id number] 2.16.840.1.821399.3.579.2 .1259 1939 Unknown [id number] 2.16.840.1.159996.3.579.2 .1259 1939 Unknown [id number] 2.16.840.1.893166.3.579.2 .727 1939 Unknown [id number] 2.16.840.1.584760.3.579.2 .727 1939 Unknown [id number] 2.16.840.1.911391.3.579.2 .72 1939 Unknown [id number] 2.16.840.1.060417.3.579.2 .72 1939 Unknown [id number] 2.16.840.1.944286.3.579.2 .72 1939 Unknown [id number] 2.16.840.1.449525.3.579.2 .72 1939 Unknown [id number] 2.16.840.1.925143.3.579.2 .1939 Unknown [id number] 2.16.840.1.731516.3.579.2 .72 1939 Unknown [id number] 2.16.840.1.608400.3.579.2 .1939 Unknown [id number] 2.16.840.1.539183.3.579.2 .1939 Unknown [id number] 2.16.840.1.061526.3.579.2 .72 1939 Unknown [id number] 2.16.840.1.968936.3.579.2 .72 1939 Unknown [id number] 2.16.840.1.197783.3.579.2 .72 1939 Unknown [id number] 2.16.840.1.535985.3.579.2 .72 1939 Unknown [id number] 2.16.840.1.679086.3.579.2 .72 1939 Unknown [id number] 2.16.840.1.858816.3.579.2 .72 1939 Unknown [id number] 2.16.840.1.549014.3.579.2 .727 1939 Unknown [id number] 2.16.840.1.258103.3.579.2 .727 1939 Unknown [id number] 2.16.840.1.320375.3.579.2 .727 1939 Unknown [id number] 2.16.840.1.740158.3.579.2 .727 1939 Unknown [id number] 2.16.840.1.843902.3.579.2 .732 1939 Unknown [id number] 2.16840.1.098921.3.579.2 .73 1939 Unknown [id number] 2.840.1.510244.3.579.2 .732 1939 Unknown [id number] 2.840.1.194514.3.579.2 .73 1939 Unknown [id number] 2.840.1.730116.3.579.2 .732 1939 Unknown [id number] 2.840.1.057337.3.579.2 .73 1939 Unknown [id number] 2.840.1.166525.3.579.2 .732 1939 Unknown [id number] 2.840.1.908979.3.579.2 .732 1939 Unknown [id number] 2.16840.1.057671.3.579.2 .732 1939 Unknown [id number] 2.16840.1.250930.3.579.2 .732 1939 Unknown [id number] 2.16840.1.204647.3.579.2 .732 1939 Unknown [id number] 2.16840.1.369775.3.579.2 .732 1939 Unknown [id number] 2.16.840.1.501466.3.579.2 .73 1939 Unknown [id number] 2.16.840.1.788818.3.579.2 .73 1939 Unknown [id number] 2.16.840.1.225429.3.579.2 .73 1939 Unknown [id number] 2.16.840.1.108108.3.579.2 .73 1939 Unknown [id number] 2.16.840.1.333941.3.579.2 .1939 Unknown [id number] 2.16.840.1.936392.3.579.2 .1939 Unknown [id number] 2.840.1.805894.3.579.2 .1939 Unknown [id number] 2.16840.1.764876.3.579.2 .73 1939 Unknown [id number] 2.840.1.053398.3.579.2 .1939 Unknown [id number] 2.16.840.1.615194.3.579.2 .73 1939 Unknown [id number] 2.16840.1.552614.3.579.2 .73 1939 Unknown [id number] 2.16.840.1.612670.3.579.2 .73 1939 Unknown [id number] 2.16.840.1.223161.3.579.2 .73 1939 Unknown [id number] 2.16.840.1.593463.3.579.2 .73 1939 Unknown [id number] 2.16840.1.956623.3.579.2 .732 1939 Unknown [id number] 2..840.1.530429.3.579.2 .732 Medicare [id number] Unknown HCAP/HFA/FAP Active [id number] Unknown [id number] 2.840.1.791239.3.579.2 .531 Unknown [id number] 2.0.1.835304.3.579.2 .531 Unknown [id number] 2.840.1.545749.3.579.2 .531 Social History Date Type Detail Facility Start: 12-15-2018 End: 08-30-2023 Tobacco smoking status [facility] Former smoker [facility] Comment on above: Pt denies smoking at this time, former smoker 10+ years ago Pt denies smoking at this time, former smoker 10+ years ago End: 03-12-1976 History of tobacco use Current smoker [employer] Start: 1940 Sex Assigned At Not on file M [employer] Experience Start: 1940 Sex Assigned At Female F [facility] Start: 02-13-2020 End: 08-30-2023 Sex Assigned At [employer] Other Tobacco smoking status Former sm okeless tobacco user, quit more than 30 days ago [facility] Start: 02-13-2020 End: 08-30-2023 Social alcohol use Social alcohol use [facility] Comment on above: SODA OCCASIONAL; QUIT AT 36 YRS OLD 1 /2 PPD; End: 03-12-1976 History of tobacco use Cigarette Smoker [facility] Start: 02-13-2020 End: 08-30-2023 Tobacco use and exposure Smokeless tobacco non-user [facility] Start: 12-21-2020 End: 07-17-2023 Alcohol intake Current drinker of alcohol (finding) [facility] Start: 02-13-2020 History SDOH Alcohol Frequency 2 [facility] Start: 02-13-2020 History SDOH Alcohol Std Drinks 1 [facility] Start: 09-11-2011 Alcohol Comment socially wine, beer [facility] Tobacco smoking stat us GAIS Tobacco smoking consumption unknown [facility] Work Phone: Start: 04-30-2023 [facility]finding[facility] How often to you hav e a drink containing alcohol? Monthly or less [facility] How many standard drinks containing alcohol do you have on a typical day? 1 or 2 [facility] How often do you hav e 6 or more drinks on 1 occasion? Never [facility] Has the [employer], or [employer] threatened to shut off services in your home in past 12Mo No [facility] (I/We) worried garcia er (my/our) food would run out before (I/we) got money to buy more. Never true [facility] Start: 07-17-2023 Alcohol Comment occasional bee r when mowing grass on hot day [facility] Start: 08-30-2023 Tobacco Comment Jason grigsby Medical Equipment Procedure Code Equipment Code Equipment Origin al Text Equipment Identifier Dates PCI of RCA Unkno wn 11/24/21 Non Biological Right Coronary Artery FDA Start: 11-24-2021 Comment on above: 4.0x19 FDA Start: 11-24-2021 Comment on above: 4.0x15 PCI of RCA Unkno wn 11/24/21 Non Biological Right Coronary Artery FDA Start: 11-24-2021 Comment on above: 4.0x19 FDA Start: 11-24-2021 Comment on above: 4.0x15 PCI of RCA Unkno wn 11/24/21 Non Biological Right Coronary Artery FDA Start: 11-24-2021 Comment on above: 4.0x19 FDA Start: 11-24-2021 Comment on above: 4.0x15 PCI of RCA Unkno wn 11/24/21 Non Biological Right Coronary Artery FDA Start: 11-24-2021 Comment on above: 4.0x19 FDA Start: 11-24-2021 Comment on above: 4.0x15 PCI of RCA Unkno wn 11/24/21 Non Biological Right Coronary Artery FDA Start: 11-24-2021 Comment on above: 4.0x19 FDA Start: 11-24-2021 Comment on above: 4.0x15 Lens Iol 0d +21. 5 Enrike Uv Abs - [id number] Start: 02-20-2020 Comment on above: Description: -0.46 PCI of RCA Unkno wn 11/24/21 Non Biological Right Coronary Artery FDA Start: 11-24-2021 Comment on above: 4.0x19 FDA Start: 11-24-2021 Comment on above: 4.0x15 PCI of RCA Unkno wn 11/24/21 Non Biological Right Coronary Artery FDA Start: 11-24-2021 Comment on above: 4.0x19 FDA Start: 11-24-2021 Comment on above: 4.0x15 PCI of RCA Unkno wn 11/24/21 Non Biological Right Coronary Artery FDA Start: 11-24-2021 Comment on above: 4.0x19 FDA Start: 11-24-2021 Comment on above: 4.0x15 PCI of RCA Unkno wn 11/24/21 Non Biological Right Coronary Artery FDA Start: 11-24-2021 Comment on above: 4.0x19 FDA Start: 11-24-2021 Comment on above: 4.0x15 PCI of RCA Unkno wn 11/24/21 Non Biological Right Coronary Artery FDA Start: 11-24-2021 Comment on above: 4.0x19 FDA Start: 11-24-2021 Comment on above: 4.0x15 PCI of RCA Unkno wn 11/24/21 Non Biological Right Coronary Artery FDA Start: 11-24-2021 Comment on above: 4.0x19 FDA Start: 11-24-2021 Comment on above: 4.0x15 PCI of RCA Unkno wn 11/24/21 Non Biological Right Coronary Artery FDA Start: 11-24-2021 Comment on above: 4.0x19 FDA Start: 11-24-2021 Comment on above: 4.0x15 PCI of RCA Unkno wn 11/24/21 Non Biological Right Coronary Artery FDA Start: 11-24-2021 Comment on above: 4.0x19 FDA Start: 11-24-2021 Comment on above: 4.0x15 PCI of RCA Unkno wn 11/24/21 Non Biological Right Coronary Artery FDA Start: 11-24-2021 Comment on above: 4.0x19 FDA Start: 11-24-2021 Comment on above: 4.0x15 PCI of RCA Unkno wn 11/24/21 Non Biological Right Coronary Artery FDA Start: 11-24-2021 Comment on above: 4.0x19 FDA Start: 11-24-2021 Comment on above: 4.0x15 PCI of RCA Unkno wn 11/24/21 Non Biological Right Coronary Artery FDA Start: 11-24-2021 Comment on above: 4.0x19 FDA Start: 11-24-2021 Comment on above: 4.0x15 PCI of RCA Unkno wn 11/24/21 Non Biological Right Coronary Artery FDA Start: 11-24-2021 Comment on above: 4.0x19 FDA Start: 11-24-2021 Comment on above: 4.0x15 PCI of RCA Unkno wn 11/24/21 Non Biological Right Coronary Artery FDA Start: 11-24-2021 Comment on above: 4.0x19 FDA Start: 11-24-2021 Comment on above: 4.0x15 PCI of RCA Unkno wn 11/24/21 Non Biological Right Coronary Artery FDA Start: 11-24-2021 Comment on above: 4.0x19 FDA Start: 11-24-2021 Comment on above: 4.0x15 PCI of RCA Unkno wn 11/24/21 Non Biological Right Coronary Artery FDA Start: 11-24-2021 Comment on above: 4.0x19 FDA Start: 11-24-2021 Comment on above: 4.0x15 PCI of RCA Unkno wn 11/24/21 Non Biological Right Coronary Artery FDA Start: 11-24-2021 Comment on above: 4.0x19 FDA Start: 11-24-2021 Comment on above: 4.0x15 PCI of RCA Unkno wn 11/24/21 Non Biological Right Coronary Artery FDA Start: 11-24-2021 Comment on above: 4.0x19 FDA Start: 11-24-2021 Comment on above: 4.0x15 PCI of RCA Unkno wn 11/24/21 Non Biological Right Coronary Artery FDA Start: 11-24-2021 Comment on above: 4.0x19 FDA Start: 11-24-2021 Comment on above: 4.0x15 PCI of RCA Unkno wn 11/24/21 Non Biological Right Coronary Artery FDA Start: 11-24-2021 Comment on above: 4.0x19 FDA Start: 11-24-2021 Comment on above: 4.0x15 PCI of RCA Unkno wn 11/24/21 Non Biological Right Coronary Artery FDA Start: 11-24-2021 Comment on above: 4.0x19 FDA Start: 11-24-2021 Comment on above: 4.0x15 PCI of RCA Unkno wn 11/24/21 Non Biological Right Coronary Artery FDA Start: 11-24-2021 Comment on above: 4.0x19 FDA Start: 11-24-2021 Comment on above: 4.0x15 PCI of RCA Unkno wn 11/24/21 Non Biological Right Coronary Artery FDA Start: 11-24-2021 Comment on above: 4.0x19 FDA Start: 11-24-2021 Comment on above: 4.0x15 PCI of RCA Unkno wn 11/24/21 Non Biological Right Coronary Artery FDA Start: 11-24-2021 Comment on above: 4.0x19 FDA Start: 11-24-2021 Comment on above: 4.0x15 Coil Embl 3-2mm Trnd Mciol Ea1 Mwce-18s-3/2-Torna do-01 - [id number] Start: 08-15-2023 Coil Embl 3-2mm Trnd Mciol Ea1 Mwce-18s-3/2-Torna do-01 - [id number] Start: 08-15-2023 Coil Embl 3-2mm Trnd Mciol Ea1 Mwce-18s-3/2-Torna do-01 - [id number] Start: 08-15-2023 Goals Date Patient Goal Desired Activity /State Functional Status Date Assessment Result Facility 08-12-2023 Functional Status N/A [facility] 07-29-2023 Functional Status N/A [facility] 07-13-2023 Functional Status N/A [facility] 07-09-2023 Functional Status No [facility] 07-08-2023 Functional Status [facility] 06-25-2023 Functional Status N/A [facility] 06-21-2023 Functional Status N/A [facility] 06-18-2023 Functional Status N/A [facility] 06-17-2023 Functional Status N/A [facility] 06-16-2023 Functional Status N/A [facility] 06-14-2023 Functional Status N/A [facility] 06-08-2023 Functional Status N/A [facility] 05-03-2023 Functional Status N/A [facility] 04-20-2023 Functional Status N/A [facility] 08-01-2022 Functional Status N/A [facility] 08-01-2022 Functional Status [facility] 06-27-2022 Functional Status No [facility] 06-27-2022 Functional Status [facility] 02-02-2022 Functional Status N/A [facility] 12-15-2021 Functional Status N/A [facility] 12-15-2021 Functional Status [facility] 12-12-2021 Functional Status No [facility] 12-11-2021 Functional Status [facility] 11-30-2021 Functional Status No [facility] 11-30-2021 Functional Status [facility] 11-23-2021 N/A [facility] 11-23-2021 [facility] Clinical Notes 12-13-2020 to 09-06-2023 Patient InstructionsNoé Owen RN - 09/06/2023 9:42 AM Kymberly Dixon APRN-WEB PROGRAMMER - 08/30/2023 2:51 PM Sandy Vasquez CCC-INSPECTOR CHIEF - 08/24/2023 10:47 AM EDTDischarge InstructionsAttachments Note Date & Type Note Facility 09-06-2023 Instructions Noé Owen RN - 09/06/2023 10:20 AM EDT Follow up with Dr. 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 Surgery was performed on August 14, [address] Li. LMMA embolization by Dr. Casarez. Patient doing well, and verbalized feeling stronger every day. Feels tired, but improved. Surgical incision is healing; no signs/symptoms of infection noted. Stitches were removed without complication, Patient denies seizures, weakness, WISDOM, fever, N/V, chills, issues with bowel/bladder, or any other concerns. Dr. Li into see patient. Impression: A & O x 3, NAD, appropriate Neuro intact FS, TM, Incision healing, no complications Pain controlled Plan: Follow up with Dr. Li via phone in 9 weeks Okay to shower, and was hair Wash hair with mild shampoo, rinse with water, do not scrub Call our office for any concerns, changes in behavior or any other concerns [phone] Noé Owen RN documented in this encounter [facility] 09-05-2023 Note EXAMINATION: CT HEAD W/O CONTRAST 09/05/2023 09:27 AM CLINICAL HISTORY: SDH evaluation ASSOCIATED DIAGNOSIS: SDH (subdural hematoma) ([facility]) ORDERING PROVIDER: DERICK EDWARDS TECHNOLOGISTS NOTE: COMPARISON: CT of the brain 08/14/2023 TECHNIQUE: Thin axial imaging of the head was performed without intravenous contrast. FINDINGS: Postprocedural changes of left frontal and parietal katty holes for subdural hematoma evacuation and left middle meningeal artery embolization. Residual hypodense left frontal subdural hematoma measures 4 mm with mild overlying dural thickening. No significant mass effect, evidence of rebleeding, new intracranial hemorrhage elsewhere in the brain, or CT evidence of acute territorial infarction. Moderate generalized brain parenchymal volume loss with commensurate ventricular caliber. Patchy hypodensities in supratentorial white matter are nonspecific but favor sequela of moderate chronic small vessel ischemia. Small remote subinsular infarcts. Atheromatous calcifications of the carotid siphons. The paranasal sinuses and tympanomastoid cavities are clear. IMPRESSION: Postoperative changes of left subdural hematoma evacuation and middle meningeal artery embolization without evidence of rebleeding since 08/14/2023. Residual thin hypodense subdural hematoma over the left cerebral convexity without significant mass effect. MACRO: None RADIOLOGY 08-30-2023 History of Present illness Narrative Images from the original note were not included. New Patient General information: Carly Marcelino is a 83 year old, White, female here today with a career center advisor from SNF. She is ambulatory with walker. Referring Provider: Derick Edwards APRN-WEB PROGRAMMER [address] [facility] [place] [address] The following information was obtained from the patient and review of chart. CC/HPI: Patient is a 83 year old, White, female here today s/p hospitalization 08/11 with SDH, developed urinary retention s/p katty holes and hematoma evacuation and unable to urinate on own before leaving the hospital for rehab, kunz in place today, very upset she had to come all the way in here and could not see a Urologist closer to home, denies any urinary issues prior to fall and CHI. Reports able to get up out of chair to bathroom okay, Allergies Allergen Reactions Hydantoins Anaphylactic Shock and Other Other Reaction(s): loss of muscle tone, Unknown Reaction, loss of muscle tone throat swells ,hives Hydrochlorothiazide Hyponatremia Valproic Acid Other Daughter states she almost , had an out of body experience Sertraline Other insomnia Dilantin [Phenytoin] Amlodipine Base Other Hypertension, intolerance Carbamazepine Itching Tegretal caused itching Labetalol Other Intolerance Mastisol Rash Mometasone Furo-Formoterol Fum Other and Nausea Falls Nifedipine Other intolerance Nitrofurantoin Rash across nose/ cheeks Past Medical, Surgical, Family and Social history reviewed. Nothing of notable concern related to current medical problem not already mentioned in HPI, Review of Systems: General: no fever, chills, weight loss or fatigue Genitourinary: See HPI All other systems reviewed and are negative Physical Exam: BP 154/72 (BP Location: right arm, BP position: sitting, Cuff Size: adult long) Pulse 70 Temp 98.3 F (36.8 C) (Temporal) Resp 17 General appearance: Wnl nutrition, no deformities, healthy appearing Respiratory: NL effort, no retractions or purse-lip breathing Neuro: Alert and oriented x3 Psych: normal affect Labs Reviewed: Urinalysis: 08/13/2023 3:40 AM Color Light Yellow Appearance Turbid pH 6.0 Spec [place] 1.018 Protein 20 Blood Negative Bilirubin Negative Urobilinogen Negative Ketones Negative Leuk. Esterase Positive ! Nitrite Negative Glucose Negative WBC 11-30 ! RBC 0-2 Mucous Threads Present Squamous Epitheleal 0-2 BMP (last 3 years, up to 8 values) 08/23/2023 08/22/2023 08/21/2023 08/20/2023 08/18/2023 08/17/2023 08/17/2023 08/16/2023 2:59 AM 4:37 AM 12:28 AM 1:25 AM 6:07 AM 3:20 PM 3:56 AM 3:37 PM Na 136 137 138 139 138 138 139 135 K 4.1 4.2 4.1 3.9 4.0 4.2 3.3 3.5 Cl 102 104 101 104 106 108 106 103 CO2 26 27 29 26 26 26 26 25 Gap 12 10 12 13 10 8 10 11 Glu 104 100 100 111 101 117 113 114 BUN 25 30 29 22 24 20 15 13 Cr 0.59 0.61 0.61 0.49 0.47 0.46 0.47 0.48 Ca 9.0 8.8 9.2 9.0 8.3 8.1 8.3 8.2 eGFR 89 88 88 93 94 94 94 93 CBC (last 3 years, up to 8 values) 08/23/2023 08/22/2023 08/21/2023 08/20/2023 08/18/2023 08/17/2023 08/16/2023 08/15/2023 2:59 AM 4:37 AM 12:28 AM 1:25 AM 6:07 AM 3:56 AM 12:53 AM 1:56 AM WBC 5.8 6.6 7.0 7.4 5.6 6.0 7.4 6.8 RBC 3.18 3.11 3.00 3.15 2.95 2.95 2.97 2.94 Hgb 9.5 9.2 9.1 9.5 8.8 9.1 9.0 8.9 Hct 29.0 28.4 27.4 28.8 26.9 26.4 26.9 26.6 MCV 91 91 91 92 91 90 91 90 RDW 14.5 15.1 14.9 14.3 14.4 14.4 14.6 14.4 Plt 268 285 296 263 282 278 300 314 Urine Culture (last 1 year) No lab values to display. Radiology Reviewed: None Impression/Plan/Education: 83 year old, White, female with urinary retention and kunz placement during recent hospitalization for SDH, surgery and recovery, Reports did not have any urinary issues prior to admission, Discussed risk and benefit of removing kunz today or planning a TOV in the near future (kunz removed the night before clinic, then follow up in clinic, She wants the kunz removed today and wants to follow up with Urologist closer to home, external referral for Urology at least one more visit for postvoid residual to make sure she is urinating completely on her own, LIBBY Singh documented in this encounter [facility] 08[facility]24-2023 [facility] Consult note Associated Order (s): IP INSPECTOR CHIEF SERVICE REQUEST SPEECH LANGUAGE PATHOLOGY EVALUATION 5-508/1 Referral received, chart reviewed and history is noted. Time In: 1047 Time Out: 1108 Session Duration: 21 minutes Patient identified by patient/armband stating name and date of . Date of Onset: 08/12/23 Reason for Consult: Cognitive Evaluation History: HTN/HLD, CAD, Nstemi s/p PCI RCA, Carotid stenosis, chronic anemia, GERD, Pulmonary Htn, seizure disorder, cerebral amyloid angiopathy, prior SAH and recent DVT Diagnosis: Altered mental status, unspecified altered mental status type [R41.82] SDH (subdural hematoma) (HCC) [S06.5XAA] Reason for admission: Per H&P- Carly Marcelino is a 83 year old female brought to the ED s/p subdural hematoma. [facility] personnel report that the patient had a fall 2 weeks prior to which she was transported to [facility]. They note that she was found to have a left acute subdural hematoma at that time that was stable. They report that she was discharged and transferred to [facility]. They endorse that the patient's family noticed a decline in the patient's mental status 3 days prior and that the patient began to complain of a WISDOM. They note that the patient was transported to [facility] ED today where imaging showed an expansion of her left subdural hematoma with midline shift. They endorse that the patient has a GCS of 14 however is 15 at baseline. They report that the patient received 250 mL of hypertonic solution. They note that the patient's last blood pressure was 150 - 160 systolic, her last heart rate was 70, and her last ETCO2 was 35 en route. Hospital Course: (per notes) 08/12/2023: Admitted to TICU with acute on chronic subdural hematoma 08/13/2023: Labetalol started for continued htn (daughter states there is no allergy) 08/14/2023: OR w/NSG for left sided katyt holes for evacuation of subdural hematoma 08/15/2023: Underwent angio embolization, acute change in mental status with worsening expressive aphasia and right-sided weakness. EEG started and NCC consulted. 08/16/2023: EEG completed and seen by NCC. Continued to have persistent expressive aphasia and right-sided weakness. Bedside swallow was poor, so Corpek was placed. 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 Hemorrhagic fluid collection over the left convexity because of postsurgical changes of left subdural hematoma evacuation. Other findings as described above. CXR 08/16/23 Lungs and pleura: Mild scattered lower left pulmonary subsegmental atelectasis. No pulmonary consolidation, pleural effusion or pneumothorax. IMPRESSION: 1. Enteral feeding tube terminates overlying the region of the thoracic esophagus, just below the level of the kt. This should be advanced into the duodenum for optimal position. 2. Mild scattered lower left pulmonary subsegmental atelectasis. Prior Level of Functioning: Completion of cognitive evaluation 07/30/23 during recent hospital admission. Results as follows: Brief Cognitive Status Exam Subtest Weighted Raw Score Orientation 0/8 Time Estimation 0/4 Confrontation Naming 4/4 (Not calculated) Mental Control 0/12 Clock Drawing 0/4 Incidental Recall 2/8 Inhibition Not administered d/t vision Verbal Production Not administered secondary to patient unable to redirect to task Total Raw Score (Maximum=58) Unable to calculate given incomplete subtests Classification Level by Age and Education Unable to to calculate, but suspected to fall within the very low classification given severity of impairments of all other subtests WMS-IV Older Adult Record Form Assessment of cognitive function was conducted with administration of Brief Cognitive Status Exam with a total score of unable to be calculated given incomplete subtests. The patient however, demo severe cognitive impairments with a suspected overlay of language deficits. Areas of deficit include basic orientation (place, time, situation), attention, organization, executive function, and insight. Language is characterized by perseverative expression of thoughts/ideas/topics with intermittent language errors during confrontation naming and picture description tasks. Patient is stimulable for use of cuing strategies. Written language is impaired at the basic level (name and single word) with question of visuospatial component. Patient intermittently aware of general errors with intermittent attempts to self correct which are perseverative and ineffective. Perseveration continues throughout all motor tasks. Receptive language is intact at basic level with breakdowns at moderate level information and 2-step simple command level. Reading comprehension is impaired at the simple sentence + level. The deficits identified during this assessment negatively impact the patient's ability to safely and efficiently complete ADL and IADL tasks within the current, home and community environments without direct assistance. 07/30/23 Bedside Swallow Assessment: Patient appears appropriate to initiate a PO diet including regular texture solids and thin liquids with set up assistance and intermittent supervision as well as oral checks at end of all PO intake to ensure full oral clearance.If patient persistently exhibits pocketing of solids or difficulty/incomplete breakdown, then a diet downgrade may be necessary. SUBJECTIVE: Patient subjective/goals: Patient alert and sitting upright in bed upon INSPECTOR CHIEF arrival. INSPECTOR CHIEF spoke with RN prior to session. Patient fully participated throughout session. Patient Statement: Are they taking me there? Pain: None reported to INSPECTOR CHIEF Scale (if yes): -/10 Location: - OBJECTIVE: Cognition: - Deferred completion of BCSE d/t recent completion in previous admission [facility] Mental Status (UMS) [facility] Mental Status ([facility]) exam is an assessment tool for mild cognitive impairment and dementia and was developed in partnership with the Geriatrics Research, Education [facility] at the [facility] - Patient scored 6/30, dementia score Orientation: PERSON: +name; +; +age PLACE: +hospital name; -city TIME: +year; +president; +KRISHNA; -DOM; -TOD Memory: Impaired for recent events leading to hospitalization. Patient able to immediately recall 1/5 unrelated items independently. After a 5 minute delay, pt is able to recall 0/5 items independently. Patient is able to recall 0 units of unrelated information (number sequences.) Attention: Sustained/selective attention is impaired. Alternating attention is impaired. WFL processing. Organization: Patient is able to generate 2 items in a given category in 1 minute. Insight: Impaired Pragmatic Behavior: WFL Language: Auditory Comprehension: WFL -1 step commands: + -2 step commands: + -[place]/biographical y/n questions: + -Open ended questions: + Verbal Expression: Functional -Verbal output is functional - Appeared with word finding deficits at time, unclear if d/t attention deficits -Confrontational Naming: + -Responsive Naming: - -Repetition is +. -Automatic speech tasks are +. Speech: Speech Production: Patient is judged to be 100% intelligible at the conversational level. Speech production is WFL. Fluency, prosody, and resonance are WFL. Phonation: WFL Oral-Motor Assessment: Lingual protrusion: + Lingual lateralization: + Labial protrusion: + Labial retraction: + Mandible: + Symmetry: + Secretions: WFL Dentition: Adequate (dentures) Swallowing -Patient is currently on a NPO with Corpak -Oral care is completed by this clinician with use of suction toothbrush kit - Patient active and agreeable participant - Clear oral cavity -Oral mucosa moist and pink SpO2: 98% Temperature: 98.1 CXR 08/16/23: Lungs and pleura: Mild scattered lower left pulmonary subsegmental atelectasis. No pulmonary consolidation, pleural effusion or pneumothorax. IMPRESSION: 1. Enteral feeding tube terminates overlying the region of the thoracic esophagus, just below the level of the kt. This should be advanced into the duodenum for optimal position. 2. Mild scattered lower left pulmonary subsegmental atelectasis. Oxygen Requirements: Room air [place] Swallow Protocol: State: alert; + maintained across session Brief Cognitive Screen: What is your Name?: + Where are you right now?: + What year is it?: + Oral Mechanism Assessment: Tongue ROM: + Facial Symmetry: + Smile: + Pucker: + Lip Closure (cheek puff and hold): + 3-ounce water swallow challenge: Positioning: Upright in bed Mode of administration: cup sip, per patient preference Consecutive drinking of 3oz Thin water: -; interrupted Cough/Throat Clear: None X FAIL: Inability to drink the entire 3 ounces (90cc)in sequential swallows due to stopping/starting or patient exhibits over signs of aspiration (I.e. coughing or choking, either during or immediately after completion) PASS: Complete and uninterrupted drinking of all 3 ounces (90cc) of water without overt signs of aspiration (I.e. coughing or choking, either during or immediate after completion) *The [place] Swallow Protocol (YSP) is a standardized measure with high sensitivity(96.5%) and negative prediction value (97.9%). Other Consistencies Presented: Thin liquid via single and sequential cup sips, puree, and dry solid Oral Phase: WFL bilabial seal; no anterior spillage, Timely and complete mastication, No oral residuals Pharyngeal Phase: No overt evidence of airway compromise w/ oral intake - No cough or change in vocal quality - No increased/effortful work in breathing - No pain or globus sensation reported by patient Risk Assessment: Factors Associated with Aspiration Related Pulmonary Complications: Low Positive Impact Negative impact Pulmonary Clearance Medical Conditions (COPD, CHF, asthma) X Reduced function (reduced mobility/increased dependence for care) X Pulmonary health (h/o smoking, need for supplemental O2, need for inhaled medications) X Immune Response Nutritional Status X Medical co-morbidities X Presence of current infectious process X Bacteriological Contents Dependencies for oral care X Dental care/repair X Oral hygiene X Xerostomia X Diabetes X Acid Suppression therapy (PPI, H2 Blockers) X Education: INSPECTOR CHIEF educated patient and RN on results/recommendations and POC. Suspect decreased retention of patient learning given memory deficits. ASSESSMENT: Diagnosis: moderate-severe cognitive deficits; no overt s/s of cardiopulmonary distress/decline Impression: Cognitive-Linguistic: A cognitive-linguistic evaluation is completed using a combination of formal and informal measures. The patient scores in the dementia range on the SLUMS for education level. The patient presents with deficits with short term memory(immediate and delayed recall), calculations, organization, and executive function. The patient appears to be functioning below baseline and would benefit from skilled speech therapy to address areas outlined above and to assist with safe discharge planning. Dysphagia: A clinical swallow evaluation is completed at bedside. The patient is unable to pass the [place] Swallow Protocol as she was unable to consecutive consume 3 ounces of water. Patient presents with no overt s/s of cardiopulmonary distress/decline with PO throughout session. The patient has low risk factors for developing aspiration related complications. Instrumental swallowing assessment is not indicated at this time. Recommend Regular Diet and Thin Liquids. No skilled INSPECTOR CHIEF services indicated for dysphagia management. PLAN: Treatment Modalities: Cognitive-Linguistic Exercises; Patient Family Education; Compensatory Strategies Duration: Duration of acute therapy stay Frequency: 1-3x per week Goals: Cognitive-Linguistic The patient will complete low level mental manipulation tasks in 3/5 trials to facilitate improvement of concentration and working memory skills. The patient will demonstrate sustained attention to task/topic for 15 minutes with less than 2 redirections to increase concentration and participation in ADL's. The patient will demonstrate basic level executive function skills for completion of functional tasks (I.e. med management, bill management, schedule management) with 80% accuracy. The patient will complete low level organization tasks (sequencing, convergent/divergent reasoning tasks) with 80% accuracy to improve mental organization for basic conversation and sequencing of daily tasks. Prognosis: (+) Cooperation (+) PMH (+) New onset of acute issues (-) Age (-) Cognitive impairments Recommendations: - Recommend Regular Diet and Thin Liquids - Please assist patient in ordering PO and setting up tray - OOB to chair at 90 degree angle when able; otherwise, upright at 60< degree angle for all PO intake - Oral care 2x/day with standard toothbrush (physical assist is needed to complete) - Speech therapy to follow while in house - Anticipate further skilled speech therapy needs at discharge for cognition - Discharge Recommendation: SNF Sandy Floers MA, CCC-INSPECTOR CHIEF Speech Language Pathologist Office [phone] [facility] 08-24-2023 Consult note Associated Order (s): IP INSPECTOR CHIEF SERVICE REQUEST SPEECH LANGUAGE PATHOLOGY EVALUATION 5-508/1 Referral received, chart reviewed and history is noted. Time In: 1047 Time Out: 1108 Session Duration: 21 minutes Patient identified by patient/armband stating name and date of . Date of Onset: 08/12/23 Reason for Consult: Cognitive Evaluation History: HTN/HLD, CAD, Nstemi s/p PCI RCA, Carotid stenosis, chronic anemia, GERD, Pulmonary Htn, seizure disorder, cerebral amyloid angiopathy, prior SAH and recent DVT Diagnosis: Altered mental status, unspecified altered mental status type [R41.82] SDH (subdural hematoma) (HCC) [S06.5XAA] Reason for admission: Per H&P- Carly Marcelino is a 83 year old female brought to the ED s/p subdural hematoma. [facility] personnel report that the patient had a fall 2 weeks prior to which she was transported to [facility]. They note that she was found to have a left acute subdural hematoma at that time that was stable. They report that she was discharged and transferred to [facility]. They endorse that the patient's family noticed a decline in the patient's mental status 3 days prior and that the patient began to complain of a WISDOM. They note that the patient was transported to [facility] ED today where imaging showed an expansion of her left subdural hematoma with midline shift. They endorse that the patient has a GCS of 14 however is 15 at baseline. They report that the patient received 250 mL of hypertonic solution. They note that the patient's last blood pressure was 150 - 160 systolic, her last heart rate was 70, and her last ETCO2 was 35 en route. Hospital Course: (per notes) 08/12/2023: Admitted to TICU with acute on chronic subdural hematoma 08/13/2023: Labetalol started for continued htn (daughter states there is no allergy) 08/14/2023: OR w/NSG for left sided katty holes for evacuation of subdural hematoma 08/15/2023: Underwent angio embolization, acute change in mental status with worsening expressive aphasia and right-sided weakness. EEG started and NCC consulted. 08/16/2023: EEG completed and seen by NCC. Continued to have persistent expressive aphasia and right-sided weakness. Bedside swallow was poor, so Corpek was placed. 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 Hemorrhagic fluid collection over the left convexity because of postsurgical changes of left subdural hematoma evacuation. Other findings as described above. CXR 08/16/23 Lungs and pleura: Mild scattered lower left pulmonary subsegmental atelectasis. No pulmonary consolidation, pleural effusion or pneumothorax. IMPRESSION: 1. Enteral feeding tube terminates overlying the region of the thoracic esophagus, just below the level of the kt. This should be advanced into the duodenum for optimal position. 2. Mild scattered lower left pulmonary subsegmental atelectasis. Prior Level of Functioning: Completion of cognitive evaluation 07/30/23 during recent hospital admission. Results as follows: Brief Cognitive Status Exam Subtest Weighted Raw Score Orientation 0/8 Time Estimation 0/4 Confrontation Naming 4/4 (Not calculated) Mental Control 0/12 Clock Drawing 0/4 Incidental Recall 2/8 Inhibition Not administered d/t vision Verbal Production Not administered secondary to patient unable to redirect to task Total Raw Score (Maximum=58) Unable to calculate given incomplete subtests Classification Level by Age and Education Unable to to calculate, but suspected to fall within the very low classification given severity of impairments of all other subtests WMS-IV Older Adult Record Form Assessment of cognitive function was conducted with administration of Brief Cognitive Status Exam with a total score of unable to be calculated given incomplete subtests. The patient however, demo severe cognitive impairments with a suspected overlay of language deficits. Areas of deficit include basic orientation (place, time, situation), attention, organization, executive function, and insight. Language is characterized by perseverative expression of thoughts/ideas/topics with intermittent language errors during confrontation naming and picture description tasks. Patient is stimulable for use of cuing strategies. Written language is impaired at the basic level (name and single word) with question of visuospatial component. Patient intermittently aware of general errors with intermittent attempts to self correct which are perseverative and ineffective. Perseveration continues throughout all motor tasks. Receptive language is intact at basic level with breakdowns at moderate level information and 2-step simple command level. Reading comprehension is impaired at the simple sentence + level. The deficits identified during this assessment negatively impact the patient's ability to safely and efficiently complete ADL and IADL tasks within the current, home and community environments without direct assistance. 07/30/23 Bedside Swallow Assessment: Patient appears appropriate to initiate a PO diet including regular texture solids and thin liquids with set up assistance and intermittent supervision as well as oral checks at end of all PO intake to ensure full oral clearance.If patient persistently exhibits pocketing of solids or difficulty/incomplete breakdown, then a diet downgrade may be necessary. SUBJECTIVE: Patient subjective/goals: Patient alert and sitting upright in bed upon INSPECTOR CHIEF arrival. INSPECTOR CHIEF spoke with RN prior to session. Patient fully participated throughout session. Patient Statement: Are they taking me there? Pain: None reported to INSPECTOR CHIEF Scale (if yes): -/10 Location: - OBJECTIVE: Cognition: - Deferred completion of BCSE d/t recent completion in previous admission [facility] Mental Status (UMS) [facility] Mental Status ([facility]) exam is an assessment tool for mild cognitive impairment and dementia and was developed in partnership with the [facility] at the [facility] - Patient scored 6/30, dementia score Orientation: PERSON: +name; +; +age PLACE: +hospital name; -city TIME: +year; +president; +KRISHNA; -DOM; -TOD Memory: Impaired for recent events leading to hospitalization. Patient able to immediately recall 1/5 unrelated items independently. After a 5 minute delay, pt is able to recall 0/5 items independently. Patient is able to recall 0 units of unrelated information (number sequences.) Attention: Sustained/selective attention is impaired. Alternating attention is impaired. WFL processing. Organization: Patient is able to generate 2 items in a given category in 1 minute. Insight: Impaired Pragmatic Behavior: WFL Language: Auditory Comprehension: WFL -1 step commands: + -2 step commands: + -[place]/biographical y/n questions: + -Open ended questions: + Verbal Expression: Functional -Verbal output is functional - Appeared with word finding deficits at time, unclear if d/t attention deficits -Confrontational Naming: + -Responsive Naming: - -Repetition is +. -Automatic speech tasks are +. Speech: Speech Production: Patient is judged to be 100% intelligible at the conversational level. Speech production is WFL. Fluency, prosody, and resonance are WFL. Phonation: WFL Oral-Motor Assessment: Lingual protrusion: + Lingual lateralization: + Labial protrusion: + Labial retraction: + Mandible: + Symmetry: + Secretions: WFL Dentition: Adequate (dentures) Swallowing -Patient is currently on a NPO with Corpak -Oral care is completed by this clinician with use of suction toothbrush kit - Patient active and agreeable participant - Clear oral cavity -Oral mucosa moist and pink SpO2: 98% Temperature: 98.1 CXR 08/16/23: Lungs and pleura: Mild scattered lower left pulmonary subsegmental atelectasis. No pulmonary consolidation, pleural effusion or pneumothorax. IMPRESSION: 1. Enteral feeding tube terminates overlying the region of the thoracic esophagus, just below the level of the kt. This should be advanced into the duodenum for optimal position. 2. Mild scattered lower left pulmonary subsegmental atelectasis. Oxygen Requirements: Room air Kamryn Swallow Protocol: State: alert; + maintained across session Brief Cognitive Screen: What is your Name?: + Where are you right now?: + What year is it?: + Oral Mechanism Assessment: Tongue ROM: + Facial Symmetry: + Smile: + Pucker: + Lip Closure (cheek puff and hold): + 3-ounce water swallow challenge: Positioning: Upright in bed Mode of administration: cup sip, per patient preference Consecutive drinking of 3oz Thin water: -; interrupted Cough/Throat Clear: None X FAIL: Inability to drink the entire 3 ounces (90cc)in sequential swallows due to stopping/starting or patient exhibits over signs of aspiration (I.e. coughing or choking, either during or immediately after completion) PASS: Complete and uninterrupted drinking of all 3 ounces (90cc) of water without overt signs of aspiration (I.e. coughing or choking, either during or immediate after completion) *The Kamryn Swallow Protocol (YSP) is a standardized measure with high sensitivity(96.5%) and negative prediction value (97.9%). Other Consistencies Presented: Thin liquid via single and sequential cup sips, puree, and dry solid Oral Phase: WFL bilabial seal; no anterior spillage, Timely and complete mastication, No oral residuals Pharyngeal Phase: No overt evidence of airway compromise w/ oral intake - No cough or change in vocal quality - No increased/effortful work in breathing - No pain or globus sensation reported by patient Risk Assessment: Factors Associated with Aspiration Related Pulmonary Complications: Low Positive Impact Negative impact Pulmonary Clearance Medical Conditions (COPD, CHF, asthma) X Reduced function (reduced mobility/increased dependence for care) X Pulmonary health (h/o smoking, need for supplemental O2, need for inhaled medications) X Immune Response Nutritional Status X Medical co-morbidities X Presence of current infectious process X Bacteriological Contents Dependencies for oral care X Dental care/repair X Oral hygiene X Xerostomia X Diabetes X Acid Suppression therapy (PPI, H2 Blockers) X Education: INSPECTOR CHIEF educated patient and RN on results/recommendations and POC. Suspect decreased retention of patient learning given memory deficits. ASSESSMENT: Diagnosis: moderate-severe cognitive deficits; no overt s/s of cardiopulmonary distress/decline Impression: Cognitive-Linguistic: A cognitive-linguistic evaluation is completed using a combination of formal and informal measures. The patient scores in the dementia range on the SLUMS for education level. The patient presents with deficits with short term memory(immediate and delayed recall), calculations, organization, and executive function. The patient appears to be functioning below baseline and would benefit from skilled speech therapy to address areas outlined above and to assist with safe discharge planning. Dysphagia: A clinical swallow evaluation is completed at bedside. The patient is unable to pass the Kamryn Swallow Protocol as she was unable to consecutive consume 3 ounces of water. Patient presents with no overt s/s of cardiopulmonary distress/decline with PO throughout session. The patient has low risk factors for developing aspiration related complications. Instrumental swallowing assessment is not indicated at this time. Recommend Regular Diet and Thin Liquids. No skilled INSPECTOR CHIEF services indicated for dysphagia management. PLAN: Treatment Modalities: Cognitive-Linguistic Exercises; Patient Family Education; Compensatory Strategies Duration: Duration of acute therapy stay Frequency: 1-3x per week Goals: Cognitive-Linguistic The patient will complete low level mental manipulation tasks in 3/5 trials to facilitate improvement of concentration and working memory skills. The patient will demonstrate sustained attention to task/topic for 15 minutes with less than 2 redirections to increase concentration and participation in ADL's. The patient will demonstrate basic level executive function skills for completion of functional tasks (I.e. med management, bill management, schedule management) with 80% accuracy. The patient will complete low level organization tasks (sequencing, convergent/divergent reasoning tasks) with 80% accuracy to improve mental organization for basic conversation and sequencing of daily tasks. Prognosis: (+) Cooperation (+) PMH (+) New onset of acute issues (-) Age (-) Cognitive impairments Recommendations: - Recommend Regular Diet and Thin Liquids - Please assist patient in ordering PO and setting up tray - OOB to chair at 90 degree angle when able; otherwise, upright at 60< degree angle for all PO intake - Oral care 2x/day with standard toothbrush (physical assist is needed to complete) - Speech therapy to follow while in house - Anticipate further skilled speech therapy needs at discharge for cognition - Discharge Recommendation: [facility] Sandy Flores MA, CCC-INSPECTOR CHIEF Speech Language Pathologist Office [phone] OCCUPATIONAL THERAPY PROGRESS SUMMARY Patient seen from 10:57 to 11:20 on 5E unit for 23 minute treatment. SUBJECTIVE: Patient Subjective/Goals: Can you hand me that walker? OBJECTIVE: Pain: No pain reported or noted Pain Relief Interventions Implemented: None required; No pain at this time Appearance: In bed, hospital gown and socks, kunz, IV infusing, corpak. Behavior: Alert and awake, pleasant and cooperative. Cognition: Oriented to self, month, year, location. Identifies date as . Requires cues during session for sequencing, safety, problem-solving, attention. UE Status: grossly WFL for mobility/ADLs Self Care: Assistance Level NA Dep Max Mod Min CG CS DS MS I Set-Up Cues Comment Feeding x NPO Grooming/ Hygiene x x x Seated in chair to wash hands and face Bathing: Upper Body x x x Assist for thoroughness Bathing: Lower Body x x x Assist for feet and posterior area Dressing: Upper Body x x x Anticipate Dressing: Lower Body x x x To don socks Toileting x x x (+) kunz Assist for posterior hygiene in standing after bowel incontinence Toilet Transfers x Bed Transfer x x x Bed to chair with wheeled walker Bed Mobility x x x Supine to sit EOB and grab bar use Endurance for Self Care: Impaired but improving Patient/Family Education: Ongoing education regarding role of therapy and importance of participating in mobility and self-care during hospital stay. DME: With Patients permission ordered no equipment via Intoloop Order. If any questions contact [facility] DME Provider at [phone]. 08/23/2023 6 Clicks Daily Activity OT Help from another person Eating meals 1 Help from another person taking care of personal grooming 3 Help from another person bathing 2 Help from another person putting on and taking off regular upper body clothing 3 Help from another person putting on and taking off regular lower body clothing 2 Help from another person toileting 2 OT 6 Clicks Score 13 6 Click Score Guidelines: 1 - Unable = Total/Dependent Assist 2 - A lot = Max/Moderate Assist 3 - A little = Minimum/Contact Guard Assist/Supervision 4 - Non = Modified [place]/Independent ASSESSMENT: Recommend further therapy services in a Skilled Rehab Setting once medically cleared. Will continue to follow patient while in hospital as appropriate. Goals (to be achieved by discharge from acute care): ONGOING unless indicated Patient will perform grooming with Close supervision MET Patient will dress upper body with Contact Guard Patient will perform bed mobility with Minimal assistance MET Patient will perform bed transfers with Contact Guard MET Patient will perform commode transfers with Contact Guard Patient will demonstrate safety awareness as evidenced by compliance with safe transfers and mobility Revised [employer] Layout Taper Goals 08/23/23 Goals (to be achieved by discharge from acute care) Patient will perform grooming with CGA while standing at sink Patient will dress upper body with Contact Guard Patient will dress lower body with Moderate assistance Patient will perform toileting with Moderate assistance Patient will perform bed mobility with Close supervision Patient will perform bed transfers with Close supervision Patient will perform commode transfers with Contact Guard Patient will demonstrate safety awareness as evidenced by compliance with safe transfers and mobility PLAN: Continue with Plan as per Initial Evaluation. Shira Palacio OTR/L NA = Not Assessed, I = Independent, MS = Modified Independent, Sup = Supervised, Set up = Physical Assistance for Set-up Only, Min = Minimal Assistance, Mod = Moderate Assistance, Max = Max assistance; Dep = Dependent; AROM = Active Range of Motion;PROM=Passive Range of Motion; MMT = Manual Muscle Test; Shld= Shoulder; Add = Adduction; Abd = Abduction PHYSICAL THERAPY PROGRESS SUMMARY Patient seen from 1501 to 1526 on GC5E unit for 25 minute treatment. SUBJECTIVE: Patient Subjective/Goals: Where is my call light? Pt states when asked how to call for help 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: pt in bed upon entering room w/ corpak and IV intact Behavior: alert,cooperative, aphasia, follows commands, grossly oriented x 3, perseverative on folding tissues, distracted by objects around pt (linen, corpak, tissue etc..) easy to redirect Pain: Site/Location: pt does not report pain; Pain Scale: 0/10 Pain Relief Interventions Implemented: None required; No pain at this time Therex- AP 1x10 QS 1x10 Hs 1x10 Mobility NA Dep Max Mod Min CG CS DS MS I Comment Supine to sit x Increase time and effort Sit to/from stand x From EOB to rolling walker Performed 2 trials Walking on level surface x ~5 feet with rolling walker Gait Analysis: bed to chair decrease step length, moderate vc's to advance LE, increase time to complete Stairs x Not appropriate Stand to sit x Sit to Supine x Functional Endurance: impaired Sitting Balance: Static:fair Dynamic:fair *pt tends to sit w/ R lateral lean. Pt corrects to midline w/ vc's. Pt participates in bilateral UE multidirectional reach w/ pt accurately reaching target Pt leans over and retrieves tissue from floor w/o LOB Standing Balance: Static: fair w/ rolling walker Dynamic:fair w/ rolling walker *Pt static stands w/ rolling walker while DIGITAL PRINTER OPERATOR completes pericare d/t bowel incontinence Patient/Family Education: Patient instructed in sitting in chair for 1 hour and to call for nursing assist when ready to return to bed. Notified Rn that pt is in chair . Patient up in chair with call light in reach. Chair alarm intact. DME: With Patients permission ordered no equipment via Intoloop Order. If any questions contact [facility] DME Provider at [phone]. 08/22/2023 6 Clicks Basic Mobility PT Difficulty turning over in bed 3 Difficulty sitting down and standing up from a chair with arms 3 Difficulty moving from lying on back to sitting on the side of the bed 3 Help from another person moving to and from bed to a chair 3 Help from another person to walk in hospital room 3 Help from another person climbing 3-5 steps with a railing 1 PT 6 Clicks Score 16 6 Click Score Guidelines: 1 - Total = Requires total assistance, or cannot do at all. 2 - A lot = Requires a lot of help (maximun to moderate assistance) Can use assistive devices. 3 - A little = Requires a little help (supervision, minimal assistance) Can use assistive devices. 4 - None = Does not require any help and does the activity independently. Can use assistive devices. ASSESSMENT: Recommend further therapy services in a Snf Setting once medically cleared. Will continue to follow patient while in hospital as appropriate. Continue with current goals as stated/revised below: ONGOING Goals (to be achieved by discharge from acute care): Patient will achieve acceptable level of pain control to allow participation in therapy. Patient will increase bed mobility to contact guard assistance Patient will perform sit to/from stand with rolling walker with contact guard assistance Patient will ambulate 50 feet with rolling walker with contact guard assistance Patient will increase ROM/Strength/Endurance/Balance to allow for above goals. Patient/Family independent with exercise program/precautions PLAN: Will follow established Plan of Care Rain VALVERDE Beeper #[phone] NA = Not Assessed, I = Independent, MS = Modified Independent, Sup = Supervised, Set up = Physical Assistance for Set-up Only, Min = Minimal Assistance, Mod = Moderate Assistance, Max = Maximal assistance; Dep = Dependent; AROM = Active Range of Motion; PROM = Passive Range of Motion; MMT = Manual Muscle Test Images from the original note were not included. Follow Up Adult Inpatient Nutrition Assessment Reason for visit: 7 Day Follow-Up Nutrition Assessment: Nutritionally Significant Meds: cerovite, miralax, margaret Labs: Basic Metabolic Panel Na K Cl CO2 Gap Glu BUN Cr Ca Mg PO4 08/22/23436 1.8 08/22/237 3.0 08/22/23436 137 4.2 104 27 10 100 30 0.61 8.8 08/21/23 0028 2.9 08/21/23 0028 3.7 08/21/23 0028 138 4.1 101 29 12 100 29 0.61 9.2 08/20/23 0125 3.0 08/20/23 0125 1.7 08/20/23 012 139 3.9 104 26 13 111 22 0.49 9.0 CBC (last 3 years, up to 5 values) (Last 5 results in the past 3 years) WBC RBC Hgb Hct MCV RDW Plt 08/22/23436 6.6 3.11 9.2 28.4 91 15.1 285 08/21/23 0028 7.0 3.00 9.1 27.4 91 14.9 296 08/20/23 0125 7.4 3.15 9.5 28.8 92 14.3 263 08/18/23 0607 5.6 2.95 8.8 26.9 91 14.4 282 08/17/23 0356 6.0 2.95 9.1 26.4 90 14.4 278 LFT's (last 3 years, up to 5 values) (Last 5 results in the past 3 years) T Prot Albumin D Bili T Bili Alk Phos ALT AST 05/07/23 1113 6.3 0.4 05/06/23 0358 5.4 0.3 05/04/23 2309 6.1 0.2 05/03/23 2310 5.8 0.2 05/03/23 1323 5.8 0.4 Vital sign ranges over the past 24 hours (retrieved 08/22/2023 at 3:09 PM): Tmax (24 hours): 98.5 F (36.9 C) Pulse Av.7 Min: 82 Max: 90 Systolic (24hrs), Av , Min:118 , Max:133 Diastolic (24hrs), Av, Min:47, Max:63 MAP (mmHg) Av.7 mmHg Min: 64 mmHg Max: 78 mmHg Resp Av Min: 18 Max: 18 SpO2 Av % Min: 94 % Max: 96 % Intake/Output Summary (Last 24 hours) at 08/22/2023 1509 Last data filed at 08/22/2023 1000 Gross per 24 hour Intake 1296 ml Output 100 ml Net 1196 ml BMs: 08/21 Diet order: NPO Enteral order: Impact Peptide 1.5 @ 45 cc/hr Provides: 1080 cc, 1620 kcal, 101 gm prot Height: Data Unavailable 67 inches Admit Weight: 80.8 kg Current Weight: 80.8 kg IBW: 61.4 kg Current BMI: 27.91 Weight hx: 4% wt loss in x2 wks Kg Lbs 07/29/2023 3:50 PM 83.915 kg 185 lb 07/29/2023 4:48 PM 83.326 kg 183 lb 11.2 oz 08/13/2023 2:05 AM 80.831 kg 178 lb 3.2 oz Estimated needs: of admit wt 3617-2665 kcal/d 20-25 kcal/kg [MSJ 1298] 73-90g pro/d 1.2-1.5 g pro/kg of IBW Assessment: 83 year old female brought in as transfer from [facility] ED for subdural acute on chronic with new midline shift, AMS. Patient had GLF 2 weeks ago, had subdural and was admitted; no midline shift at that time, no AMS. Was doing well and discharged to rehab facility. Started on lovenox recently for DVT ppx. AMS noted on . Presented to ED today. Complaints of headache. No new injury. Hospital Course: 08/11 - admitted to TICU with acute on chronic subdural hematoma 08/12 - Labetalol started for continued htn (daughter states there is no allergy) 08/13 - OR w/NSG for left sided katty holes for evacuation of subdural hematoma 08/14 - underwent angio embolization, acute change in mental status with worsening expressive aphasia and right-sided weakness. EEG started and NCC consulted. 08/15 - EEG completed and seen by NCC. Continued to have persistent expressive aphasia and right-sided weakness. Bedside swallow was poor, so Corpek was placed. 08/17/2023 No acute events overnight, corpak placed mri completed 08/18/2023 No acute events 08/18- groin wound with drainage At this follow up, Pt continues on enteral feeds. At time of visit, observed pump running @ goal of 45 cc/hr. Per RN, Pt tolerating feeds well. Last BM today, no emesis. Mg low today, please monitor and replace PRN. May consider switching to more standard tube feed formula, will also make recs below for bolus feeds should they be desired. No new weight to assess, please weigh weekly. See recs below, thank you. ? Nutrition Problems: 1. Tube feeds Nutrition Interventions: 1. Adjust tube feeds Nutren 1.5 @ 45 cc/hr x 24 hours FWF per MD Provides 1080 cc, 1620 kcal, 73 gm prot For bolus feeds: 360 cc TID 2. Monitor/replace Mg PRN 3. Weekly weights Will continue to follow Melissa Varela RD, LD Personal Pager [phone] [employer] Pager: [phone] OCCUPATIONAL THERAPY PROGRESS SUMMARY Patient seen from 10:40AM to 11:07AM on 5E unit for 27 minute treatment. (Cotx with PT for safety concerns/pt required assist x2 skilled therapists previous tx) SUBJECTIVE: Ruh, R-U-H OBJECTIVE: Pain: 0/10 Appearance/Behavior: Upon arrival, pt was supine in bed. Pleasant and cooperative. Corpak, IV, kunz. Cognition: A&O x3 UE Status: Grossly WFL; improvement with (R) grasp. Self Care: Assistance Level NA Dep Max Mod Min CG CS DS MS I Set-Up Cues Comment Feeding x NPO Grooming/ Hygiene x x Used wipes to wash (B) hands; anticipate min assist while standing at sink Bathing: Upper Body x Anticipates Bathing: Lower Body x x x Anticipates Dressing: Upper Body x To doff gown around backside Dressing: Lower Body x x x Required (B) socks to be threaded, able to pull up via figure four method while stabilizing LE Toileting x For hygiene after dark stool Toilet Transfers x2 On/off toilet Bed Transfer x2 Sit to stand via RW and min assist x2. Ambulated to/from bathroom via RW and min assist Bed Mobility x Supine to sit EOB; increased time to scoot towards EOB Patient was left seated in bedside chair with chair alarm activated. Call light in reach. Instructed pt to call nursing for assist back into bed; pt verbalized understanding. Endurance for Self Care: Impaired Patient/Family Education: Discussed role of OT and safe transfer techniques. 08/20/2023 6 Clicks Daily Activity OT Help from another person Eating meals 1 Help from another person taking care of personal grooming 2 Help from another person bathing 2 Help from another person putting on and taking off regular upper body clothing 3 Help from another person putting on and taking off regular lower body clothing 2 Help from another person toileting 1 OT 6 Clicks Score 11 6 Click Score Guidelines: 1 - Unable = Total/Dependent Assist 2 - A lot = Max/Moderate Assist 3 - A little = Minimum/Contact Guard Assist/Supervision 4 - Non = Modified Wilson/Independent ASSESSMENT: Recommend further therapy services in a Skilled Rehab Setting once medically cleared. Will continue to follow patient while in hospital as appropriate. Goals (to be achieved by discharge from acute care): ONGOING unless indicated Patient will perform grooming with Close supervision Patient will dress upper body with Contact Guard Patient will perform bed mobility with Minimal assistance MET Patient will perform bed transfers with Contact Guard Patient will perform commode transfers with Contact Guard Patient will demonstrate safety awareness as evidenced by compliance with safe transfers and mobility PLAN: Continue with Plan as per Initial Evaluation. ROSA MARIA Tse NA = Not Assessed, I = Independent, MS = Modified Independent, Sup = Supervised, Set up = Physical Assistance for Set-up Only, Min = Minimal Assistance, Mod = Moderate Assistance, Max = Max assistance; Dep = Dependent; AROM = Active Range of Motion;PROM=Passive Range of Motion; MMT = Manual Muscle Test; Shld= Shoulder; Add = Adduction; Abd = Abduction PHYSICAL THERAPY PROGRESS SUMMARY Patient seen from 10:40am to 11:04am on GC5E unit for 24 minute treatment. Co-session with OT necessary for safe and professional assist with mobility assessment and training. SUBJECTIVE: Patient Subjective/Goals: Ruh. R-U-H. 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: Obese, IV, Kunz, and Sequential Compression Devices (SCDs) Behavior: Awake, Cooperative. A&Ox 3. Delayed processing, flat affect. Pain: Site/Location: denies pain Mobility NA Dep Max Mod Min CG CS DS MS I Comment Supine to sit x Min A for trunk and BLE's. Transfers x2 Pivot transfer to chair Sit to/from stand x2 Min A x 2 sit to stand from EOB and from commode. Walking on level surface x 10 feet x 2 with rolling walker Gait Analysis: slow maryann, Unsteady, forward flexed posture. Patient requires assist for walker management and balance with ambulation. Stand to sit x Functional Endurance: impaired Sitting Balance: Static:fair + Dynamic:fair + Standing Balance: Static: fair- with RW Dynamic:fair- with RW Patient/Family Education: Instructed Patient in roles of therapy. Patient up in chair with call light in reach. Chair alarm intact. DME: With Patients permission ordered no equipment via Intolo[employer] Order. [facility] at [phone]. 08/20/2023 6 Clicks Basic Mobility PT Difficulty turning over in bed 3 Difficulty sitting down and standing up from a chair with arms 2 Difficulty moving from lying on back to sitting on the side of the bed 3 Help from another person moving to and from bed to a chair 2 Help from another person to walk in hospital room 3 Help from another person climbing 3-5 steps with a railing 1 PT 6 Clicks Score 14 6 Click Score Guidelines: 1 - Total = Requires total assistance, or cannot do at all. 2 - A lot = Requires a lot of help (maximun to moderate assistance) Can use assistive devices. 3 - A little = Requires a little help (supervision, minimal assistance) Can use assistive devices. 4 - None = Does not require any help and does the activity independently. Can use assistive devices. ASSESSMENT: Patient was better able to participate with therapy this date. Patient cont to be functioning below baseline levels. Recommend further therapy services in a Snf Setting once medically cleared. Will continue to follow patient while in hospital as appropriate. Continue with current goals as stated/revised below: Goals (to be achieved by discharge from acute care): Patient will achieve acceptable level of pain control to allow participation in therapy. Patient will increase bed mobility to contact guard assistance Patient will perform sit to/from stand with rolling walker with contact guard assistance Patient will ambulate 50 feet with rolling walker with contact guard assistance Patient will increase ROM/Strength/Endurance/Balance to allow for above goals. Patient/Family independent with exercise program/precautions PLAN: Will follow established Plan of Care Lillian Liao PT NA = Not Assessed, I = Independent, MS = Modified Independent, Sup = Supervised, Set up = Physical Assistance for Set-up Only, Min = Minimal Assistance, Mod = Moderate Assistance, Max = Maximal assistance; Dep = Dependent; AROM = Active Range of Motion; PROM = Passive Range of Motion; MMT = Manual Muscle Test Associated Order(s): IP OCCUPATIONAL THERAPY SERVICE REQUEST Occupational Therapy Consult received. Patient currently on caseload. Will continue to follow per POC. Current recommendations are for SNF. RISA Matos/Alex Associated Order(s): IP PHYSICAL THERAPY SERVICE REQUEST PHYSICAL THERAPY PROGRESS SUMMARY Patient seen from 3:00 to 3:10 on 5W unit for 10 minute treatment. Nurse asked for patient to remain in bed due to leaving for MRI soon. Medical Updates: 624: Left-sided bur holes x2 for evacuation of [id number] subdural hematoma. 2. Placement of left-sided subgaleal drain .24:Cerebral angiogram with LMMA embolization SUBJECTIVE: Patient Subjective/Goals: Carly re: What is your name. Patient not oriented to place or date. Patient not able to speak. Patient saying yes to all choices. 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, IV, and Kunz Behavior: Impaired, Drowsy Pain: Site/Location: B LE; Pain Scale: moderate/10 Pain Relief Interventions Implemented: Positioning, Notified Nurse, and RN aware and reports patient received medication according to time schedule Mobility NA Dep Max Mod Min CG CS DS MS I Comment Roll to right sidelying x2 Patient repositioned in bed with wedges Roll to left sidelying x2 Sidelying to sit Supine to sit Transfers Sit to/from stand Walking on level surface Stairs Stand to sit Sit to Supine Functional Endurance: Impaired Patient received B LE PROM 1x10 reps of ankle dorsiflexion/plantarflexion to neutral, knee flexion/extension to 90*, hip flexion/extension to 90* and hip AB/ADduction to 30*. Patient received B ankle dorsiflexion stretch for 10 second hold 1x5 reps. Patient/Family Education: Instructed Patient in roles of therapy. Instructed Patient in roles, goals, treatment plan: demonstrated good verbal understanding. Instructed patient in Exercise Program for Ankle pumps x10 reps Patient up in bed with call light in reach. DME: With Patients permission ordered no equipment via [employer] Order. If any questions contact [facility] DME Provider at [phone]. 08/16/2023 6 Clicks Basic Mobility PT Difficulty turning over in bed 2 Difficulty sitting down and standing up from a chair with arms 1 Difficulty moving from lying on back to sitting on the side of the bed 1 Help from another person moving to and from bed to a chair 1 Help from another person to walk in hospital room 1 Help from another person climbing 3-5 steps with a railing 1 PT 6 Clicks Score 7 6 Click Score Guidelines: 1 - Total = Requires total assistance, or cannot do at all. 2 - A lot = Requires a lot of help (maximun to moderate assistance) Can use assistive devices. 3 - A little = Requires a little help (supervision, minimal assistance) Can use assistive devices. 4 - None = Does not require any help and does the activity independently. Can use assistive devices. ASSESSMENT: Recommend further therapy services in a Snf Setting once medically cleared. Will continue to follow patient while in hospital as appropriate. Continue with current goals as stated/revised below: Goals (to be achieved by discharge from acute care): Patient will achieve acceptable level of pain control to allow participation in therapy. Patient will increase bed mobility to contact guard assistance Patient will perform sit to/from stand with rolling walker with contact guard assistance Patient will ambulate 50 feet with rolling walker with contact guard assistance Patient will increase ROM/Strength/Endurance/Balance to allow for above goals. Patient/Family independent with exercise program/precautions PLAN: Will follow established Plan of Care Vickie Pete, PT, DPT #[id number] NA = Not Assessed, I = Independent, MS = Modified Independent, Sup = Supervised, Set up = Physical Assistance for Set-up Only, Min = Minimal Assistance, Mod = Moderate Assistance, Max = Maximal assistance; Dep = Dependent; AROM = Active Range of Motion; PROM = Passive Range of Motion; MMT = Manual Muscle Test TICU OT Attempted OT visit Patient not medically appropriate per discussion with RN. Will re-attempt at next available opportunity. Aurea Parra MOT, OTR/L Pager: [phone] Secure chat preferred Associated Order(s): NUTRITION NEW CONSULT Images from the original note were not included. Initial Adult Inpatient Nutrition Assessment Reason for Visit: Consult - TF Nutrition Assessment: Admitting Diagnosis: AMS change SDH with midline shift No past medical history on file. Past Surgical History: Procedure Laterality Date KATTY HOLES, HEMATOMA EVACUATION Left 08/14/2023 Procedure: KATTY HOLES x2, HEMATOMA EVACUATION; Surgeon: Artem Li MD; Location: PERIOPERATIVE SERVICES; Service: Neurosurgery is allergic to hydantoins, hydrochlorothiazide, valproic acid, sertraline, dilantin [phenytoin], amlodipine base, carbamazepine, labetalol, mastisol, mometasone furo-formoterol fum, nifedipine, and nitrofurantoin. Labs: Basic Metabolic Panel Na K Cl CO2 Gap Glu BUN Cr Ca Mg PO4 08/16/23 0053 2.7 08/16/23 0053 1.6 08/16/23 0053 137 3.6 106 24 11 93 13 0.48 8.0 08/15/23 0156 3.7 08/15/23 0156 2.0 08/15/23 0156 136 4.2 107 23 10 122 14 0.57 7.8 08/14/23 1342 144 08/14/23 1342 137 3.3 106 08/14/23 0023 1.8 08/14/23 0023 138 4.1 106 26 10 118 19 0.58 8.6 08/12/2023 7:19 PM Ethanol <10 08/13/2023 3:40 AM Color Light Yellow Appearance Turbid pH 6.0 Spec [place] 1.018 Protein 20 Blood Negative Bilirubin Negative Urobilinogen Negative Ketones Negative Leuk. Esterase Positive ! Nitrite Negative Glucose Negative WBC 11-30 ! RBC 0-2 Mucous Threads Present Squamous Epitheleal 0-2 CBC (last 3 years, up to 5 values) (Last 5 results in the past 3 years) WBC RBC Hgb Hct MCV RDW Plt 08/16/23 0053 7.4 2.97 9.0 26.9 91 14.6 300 08/15/23 0156 6.8 2.94 8.9 26.6 90 14.4 314 08/14/23 1342 9.6 29.6 08/14/23 0023 7.0 3.10 9.5 28.5 92 14.4 291 08/13/23 0259 6.9 3.28 10.0 30.0 92 14.6 311 LFT's (last 3 years, up to 5 values) (Last 5 results in the past 3 years) T Prot Albumin D Bili T Bili Alk Phos ALT AST 05/07/23 1113 6.3 0.4 05/06/23 0358 5.4 0.3 05/04/23 2309 6.1 0.2 05/03/23 2310 5.8 0.2 05/03/23 1323 5.8 0.4 Lipids (last 3 years, up to 5 values) None Arterial Blood Gases None Lab Results Component Value Date HBA1C 4.9 05/03/2023 Accuchecks: Fingerstick Glucose (last 72 hours) Glucose 08/13/23 1345 108 Vitamin B12 (pg/mL) Date Value 08/02/2023 900 No results found for: FOL No results found for: FE No results found for: VITD25 No results found for: ZINC Vital sign ranges over the past 24 hours (retrieved 08/16/2023 at 12:06 PM): Tmax (24 hours): 99.3 F (37.4 C) Pulse Av.4 Min: 68 Max: 90 Systolic (24hrs), Av , Min:124 , Max:181 Diastolic (24hrs), Av, Min:56, Max:115 MAP (mmHg) Av.9 mmHg Min: 75 mmHg Max: 119 mmHg Resp Av.2 Min: 8 Max: 26 SpO2 Av.6 % Min: 87 % Max: 100 % DONAL BM UOP 08/14 20 2410 6/4 50 1185 6/3 X1 1565 6/2 750 Nutritionally Significant Meds: magnesium sulfate, 2,000 mg, Intravenous, One Time Dose levETIRAcetam orderable, 500 mg, Intravenous, Every 12 hours lisinopril, 2.5 mg, Oral, Daily losartan, 50 mg, Oral, Daily atorvastatin, 40 mg, Oral, At Bedtime senna, 8.6 mg, Oral, At Bedtime sodium chloride, , Last Rate: 75 mL/hr at 08/16/23 1049 Diet Order: NPO Nutrition Focused Physical Exam Muscle loss: Episcopalian region: slight depression Clavicle region: visible bone with some protrusion Scapula region: mild depression Anterior thigh: well rounded Posterior calf: well developed Fat loss: Orbital region: slightly dark [place]/somewhat hollow look Tricep/bicep region: ample fat tissue Rib/back region: chest full/ribs do not show Edema: none Hair/Nails/Skin: head surgical incision, EEG leas, scattered brusing Eyes/Nose/Mouth: room air, edentulous, corpak Height: Data Unavailable 67 inches Admit Weight: 80.8 kg Current Weight: 80.8 kg IBW: 61.4 kg Current BMI: 27.91 Weight hx: 4% wt loss in x2 wks Kg Lbs 07/29/2023 3:50 PM 83.915 kg 185 lb 07/29/2023 4:48 PM 83.326 kg 183 lb 11.2 oz 08/13/2023 2:05 AM 80.831 kg 178 lb 3.2 oz Estimated needs: of admit wt 7955-1781 kcal/d 20-25 kcal/kg [MSJ 1298] 90g pro/d 1.5 g pro/kg of IBW Assessment: 83 yo female w/ pmh of 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 Transferred to . 08/11 Admitted to TICU. CTH 08/12 Regular diet 08/13 NPO; OR s/p L sided katty holes for SDH evacuation, DONAL drain; rCTH w/ improved MLS and SDH; 08/14 S/p angiogram and LMMA embolization; waxing/waning; EEG - per NCCU no seizures 08/15 DONAL drain removed; failed BDS with RN - Corpak placed On room air. NPO and on NS IVF. Corpak placement successful during exam. Requiring restraints to avoid pt from self removing tube. Per RN bridle previously attempted and unsuccessful by multiple nurses. EEG in process still. On exam pt is awake, moaning, able to say Ryann is her last name but not able to report place. No family bedside. Per chart review was advanced to a regular diet during her prior admit sustaining SDH -per DT note during prior admission pt with reduced oral intake. Noted pt with acute weight loss in past 2 weeks after trauma - 4% in in 2 weeks. C/f acute inadequate nutrition 5+days - unclear of exact po intake at rehab recently. NFPE some some mild muscle loss in UEs - unclear if acutely related to injury vs chronic from aging. Suspect at risk for malnutrition. Plan to start TF via corpak as pt unable to maintain adequate oral intake at this time. Nutrition Problems: AMS Nutrition Interventions: - Enteral nutrition Impact peptide 1.5 @ 15 mL/hr increasing 10ml q4hr until goal @ 45 mL/hr x24 Provides 1080 mL, 1620 demetria, 101g protein - Start cerovite 15 mL daily multi. Consider short term course of IV thiamine 100mg daily x5d for possible refeeding risk? - Monitor tolerance to high protein formula above. If BUN rising and pt receiving near goal TF intake consistently can trial lower protein formula Peptamen 1.5 @ 50 mL/hr x24 Provides 1200 mL, 1800 demetria, 81g protein - Anticipate need for additional volume when IVFs/drips stopped - can consider 150 mL water flushes q6hr - INSPECTOR CHIEF consult after failed bedside swallow, acute on chronic SDH, and post op Monitor ability to advance diet If cleared for thin liquids would benefit from boost plus with meal trays (or alternative ensure plus) - If supplemental TF desired when diet advanced to help stimulate po intake Impact peptide 1.5 @ 55 mL/hr x 12hrs Provides 660 mL, 990 demetria, 62g protein Delores Garcia RD, LD, [facility] Personal Pager: [phone] (Mon-Fri 7a-3:30p) Nutrition Alcohol Rubber Pager (evenings/weekends 7a-7p): [phone] Dietitian vs DietaryTech: Dietitian and News Copy Editor Associated Order(s): IP NEUROCRITICAL CARE CONSULT Images from the original note were not included. NCC INITIAL CONSULT NOTE Reason for Consult: speech difficulty Consulted by: Sammie Barriga MD HPI: 83W with h/o remote seizures, HTN, CAD (NSTEMI, stent in RCA, takes ASA 81), carotid stenosis, recently diagnosed SDH who presents with decline in mental status from OSH. Pt was diagnosed with L SDH after fall from stand a couple weeks prior to admission. This was managed nonoperatively and pt was discharged to rehab. Per family, pt was progressing well and planning for discharge home until 2 days prior to admission, when seemed more lethargic. 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 Underwent katty hole evacuation 08/13 on the L. On 08/14, went to IR for L MMA embolization. Family states that prior to her fall 2 weeks, she was independent in ADLs and lived alone. Used a walker for ambulation. Was still able to drive. Family states that pt had remote history of seizures in her 30s and was managed with neurotin. Has not a seizure in many years. Does not actively follow with a neurologist. 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 Was noted to have sharp waves on EEG during that admit. Was on keppra XL 500mg daily. Pre-admit mRS: 2: Slight disability; unable to carry out all previous activities, but able to look after own affairs without assistance Review of Systems ROS as in the HPI. 10 point ROS otherwise reviewed for complaint and are negative. No past medical history on file. Past Surgical History: Procedure Laterality Date KATTY HOLES, HEMATOMA EVACUATION Left 08/14/2023 Procedure: KATTY HOLES x2, HEMATOMA EVACUATION; Surgeon: Artem Li MD; Location: PERIOPERATIVE SERVICES; Service: Neurosurgery No family history on file. Social History Socioeconomic History Marital status: Unknown Social Determinants of Health Financial Resource Strain: Low Risk (05/04/2023) Received from [facility] Overall Financial Resource Strain (CARDIA) Difficulty of Paying Living Expenses: Not hard at all Food Insecurity: No Food Insecurity (05/04/2023) Received from [facility] Hunger Vital Sign Worried About Running Out of Food in the Last Year: Never true Ran Out of Food in the Last Year: Never true Transportation Needs: No Transportation Needs (05/04/2023) Received from [facility] PRAPARE - Transportation Lack of Transportation (Medical): No Lack of Transportation (Non-Medical): No Vitals: 08/15/23 1800 BP: 165/96 Pulse: 79 Resp: 15 Temp: 98.4 F (36.9 C) SpO2: 95% Intake/Output Summary (Last 24 hours) at 08/15/2023 1809 Last data filed at 08/15/2023 1700 Gross per 24 hour Intake 1775 ml Output 1715 ml Net 60 ml Current Facility-Administered Medications: labetalol (TRANDATE) 5 mg/mL injection, 10 mg, Intravenous Push, One Time Dose, Ronnie Jesus MD lisinopril (ZESTRIL) tablet, 2.5 mg, Oral, Daily, Ronnie Jesus MD losartan (COZAAR) tablet, 50 mg, Oral, Daily, Herbert Alcala PA-C, 50 mg at 08/15/23 0817 levETIRAcetam (KEPPRA) tablet, 500 mg, Oral, 2x Daily, 500 mg at 08/15/23 0817 FOLLOWED BY [START ON 08/21/2023] levETIRAcetam (KEPPRA) tablet, 500 mg, Oral, At Bedtime, Binh Hart MD labetalol (TRANDATE) 5 mg/mL injection, 10 mg, Intravenous Push, Q6H PRN, Jolene Snowden MD, 10 mg at 08/15/23 1559 albuterol (PROVENTIL HFA) 108 (90 Base) MCG/ACT HFA inhaler, 2 Puff, Inhalation, Q4H PRN, Jolene Snowden MD atorvastatin (LIPITOR) tablet, 40 mg, Oral, At Bedtime, Jolene Snowden MD, 40 mg at 08/14/23 2225 acetaminophen (TYLENOL) tablet, 650 mg, Oral, Q4H PRN, Jolene Snowden MD, 650 mg at 08/15/23 0817 senna (SENOKOT) tablet, 8.6 mg, Oral, At Bedtime, Jolene Snowden MD, 8.6 mg at 08/14/23 2225 bisacodyl (DULCOLAX) 5 MG enteric coated tablet, 10 mg, Oral, Daily PRN, Jolene Snowden MD Exam Neurologic: Cognition: Level of consciousness: awake, alert Language: word salad, other than ok there is no intelligible speech. Does not follow commands or respond to questions. Cranial Nerves CN II: Pupils: 3 mm OD reactive, 2 mm OS no clearly reactive to light/has corneal clouding on this side. CN III, IV, : Extraocular movements: intact CN V: Facial sensation: limited by aphasia CN VII: Facial motor function: no clear droop CN VIII: Hearing: intact to conversation CN IX, X: limited by aphasia CN XI: limited by aphasia CN XII: limited by aphasia Motor/sensory Tone: normal Spontaneous abnormal movements:none Did not cooperate with formal testing. BUE spont and antigravity, at least 4. BLE withdraws to nox stim, barely antigravity DTRs R Biceps: 1 Triceps: 0 Patellar: 0 Ankle: 0 Babinski: mute L Biceps: 1 Triceps: 0 Patellar: 0 Ankle: 0 Babinski: mute General appearance: normal appearing at stated age Head: atraumatic Neck: supple Eyes/orbits: no scleral icterus, edema or injection Mucous membranes: moist Lungs: on RA Heart: regular rate, regular rhythm Abdomen: soft Extremities: no deformities Skin: no rash Labs: CBC (last 3 years, up to 5 values) (Last 5 results in the past 3 years) WBC RBC Hgb Hct MCV RDW Plt 08/15/23 0156 6.8 2.94 8.9 26.6 90 14.4 314 08/14/23 1342 9.6 29.6 08/14/23 0023 7.0 3.10 9.5 28.5 92 14.4 291 08/13/23 0259 6.9 3.28 10.0 30.0 92 14.6 311 08/12/23 1919 9.0 3.23 10.0 29.5 91 14.2 272 BMP (last 3 years, up to 8 values) 08/15/2023 08/14/2023 08/14/2023 08/13/2023 08/12/2023 08/03/2023 08/02/2023 08/01/2023 1:56 AM 1:42 PM 12:23 AM 2:59 AM 7:19 PM 12:13 AM 5:57 AM 5:00 AM Na 136 137 138 141 138 136 136 139 K 4.2 3.3 4.1 4.2 4.1 4.3 4.2 4.0 Cl 107 106 106 108 106 102 102 104 CO2 23 -- 26 26 25 27 26 27 Gap 10 -- 10 11 11 11 12 12 Glu 122 144 118 103 91 100 104 93 BUN 14 -- 19 20 21 18 17 15 Cr 0.57 -- 0.58 0.66 0.73 0.71 0.73 0.68 Ca 7.8 -- 8.6 9.0 8.8 8.3 8.2 8.7 eGFR 90 -- 89 86 81 84 81 86 Lab Results Component Value Date HBA1C 4.9 05/03/2023 Lipids (last 3 years, up to 5 values) None ASSESSMENT: 83W with h/o remote seizures, HTN, CAD (NSTEMI, stent in RCA, takes ASA 81), carotid stenosis, recently diagnosed SDH who presents with decline in mental status from OSH. 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 S/p katty hole evac (08/13) and L MMA embolization (08/14). Exam notable for receptive aphasia, word salad. No clear seizures on EEG. RECS: - cont EEG - cont keppra 500mg IV BID - supplement thiamine, folate, multivitamin - corpak to initiate nutrition (not clear that pt has had much intake over the last 5 days), and continue medications Total length of time 55 (minutes) of the encounter, exclusive of procedures. Time-based billing justifications: Reviewing (chart, labs, and other clinical notes) Obtaining history (or reviewing separately obtained history) Patient visit (including performing a medically appropriate exam) Counseling/educating the patient/family/caregiver Ordering (medications, tests, procedures - including independent interpretation of results when not reported separately) Referring/communicating with other health transitional care manager - when not reported separately Charting in [facility] Jamila Yuan MD [facility] service pager (for CCP consults): [phone] Physical Therapy Clinical update: s/p OR on 08/14/23 for L sided [place] holes for SDH evacuation. DONAL drain placed 08/15/23: awaiting L MMA embolization Time in: 839, time out: 902 SUBJECTIVE: pt nods NO,(min to no verbalization) OBJECTIVE: Pt. seen on 5w for 23 minutes for treatment as follows: Appearance/behavior: R scalp katty holes, DONAL drain, dressings, ICU monitors, kunz , scds Severe aphasia Able to follow automatic motor commands , no other commands Pain: did not rate/10, appears to have mild pain- unable to localize Strength : pt now R hemiparesis: not following commands to MMT or AROM. Able to WB well on RLE, unable to grasp and wb on walker with UE Bed mobility: Rolling: max A Supine to sit: max A x2 Transfers: mod A x2 sit <> stand and stand pivot bed to chair with attempts to use Wheeled walker - however pt unable to coo & co founder with RUE Ambulation: 2' with Wheeled walker with unable to grasp with R UE for proper use with mod A x2, shuffling, significant R lean Patient education: Calling for assist for all mobility while in hospital , oriented to upcoming proceedure Pt sitting in chair at bedside after rx. with call light in reach. Pt instructed to call for asssistance with all mobility. [place] pressure alarm intact. RN aware 08/15/2023 6 Clicks Basic Mobility PT Difficulty turning over in bed 2 Difficulty sitting down and standing up from a chair with arms 2 Difficulty moving from lying on back to sitting on the side of the bed 2 Help from another person moving to and from bed to a chair 2 Help from another person to walk in hospital room 2 Help from another person climbing 3-5 steps with a railing 1 PT 6 Clicks Score 11 6 Click Score Guidelines: 1 - Total = Requires total assistance, or cannot do at all. 2 - A lot = Requires a lot of help (maximun to moderate assistance) Can use assistive devices. 3 - A little = Requires a little help (supervision, minimal assistance) Can use assistive devices. 4 - None = Does not require any help and does the activity independently. Can use assistive devices.. ASSESMENT: pt with increased apasia, R hemiparesis and decline in functional mobility this date. Pt pending MMA embolization. Will continue to follow. Recommend further therapy services in a Snf Setting once medically cleared. Will continue to follow patient while in hospital as appropriate. Continue with current goals as stated/revised below: Goals (to be achieved by discharge from acute care): Patient will achieve acceptable level of pain control to allow participation in therapy. Patient will increase bed mobility to contact guard assistance Patient will perform sit to/from stand with rolling walker with contact guard assistance Patient will ambulate 50 feet with rolling walker with contact guard assistance Patient will increase ROM/Strength/Endurance/Balance to allow for above goals. Patient/Family independent with exercise program/precautions PLAN: Continue PT per POC Daina Bourgeois PT [phone] Dietitian vs DietaryTech: Dietary [employer]iet [employer] Nutrition Screening Reason for visit: LOS 5 or more days Assessment Admitting Diagnosis: AMS change SDH with midline shift High risk nutrition diagnosis: No - no points Past Medical History: No past medical history on file. Food Allergies: None Albumin: n/a - no points Skin Integrity: No pressure ulcers at this time - no points Fluid Accumulation: None Diet Order: NPO % PO Intake: NPO Intake Difficulties: None - 0 points Height-67 inches Weight Only Weight 07/29/2023 3:50 PM 185 lb 07/29/2023 4:48 PM 183 lb 11.2 oz 08/13/2023 2:05 AM 178 lb 3.2 oz BMI Screening value: 21 or greater - 0 points % Weight Loss: None Weight Loss Screening Value: None Comments: NPO-IVF. No food allergies. Weights with some decline noted. Monitor NPO status-diet advance. Number of Points: 0 Nutritional Plan of Care: Less than or equal to 6 points: At this time, patient is at low nutrition risk. DTR to provide routine follow up. Will continue to follow, BHARATI Zabala (Nutrition) Pager #[phone]. OCCUPATIONAL THERAPY PROGRESS SUMMARY Clinical update: 08/14/23 left sided katty holes for evacuation of SDH by Dr Li 08/15/23 plan for MMA embolization Patient seen from 839 to 902 on 5 [facility] unit for 23 minute treatment. SUBJECTIVE: Patient Subjective/Goals Ow! Re: BLE movement OBJECTIVE: Pain: BLE , not rated Pain Relief Interventions Implemented: Rest, positioning Appearance: PIV, tele, BP cuff, pulse ox, katty hole incisions with DONAL, external catheter Behavior: drowsy, cooperative Cognition: decreased command follow from initial eval Minimal verbalizations, mostly accurate yes/no via head nod UE Status: new R UE weakness, poor gross grasp - unable to maintain grasp on walker handle during transfer Self Care: Assistance Level NA Dep Max Mod Min CG CS DS MS I Set-Up Cues Comment Feeding Grooming/ Hygiene x Wash face/hands Using L hand Cues to wash R side of face Bathing: Upper Body Bathing: Lower Body Dressing: Upper Body x Don gown Dressing: Lower Body x Don socks Toileting x External catheter Incontinence care Toilet Transfers Bed Transfer x2 Sit to stand from EOB Stand to sit in chair Bed Mobility x2 Supine to sit EOB Bed to chair x2 Few steps between bed and chair using walker Difficulty holding walker with R hand Assist to maneuver walker Patient remained seated in bedside chair end of session with chair alarm, cushion in place . Call cuevas and telephone within reach. Patient instructed to call for staff assist when ready to return to bed and for all mobility. RN aware of patient location and mobility status. Endurance for Self Care: Impaired Patient/Family Education: Instructed Patient in roles, goals, treatment plan: demonstrated poor verbal understanding. Orientation Discharge recommendations MMA procedure scheduled for today 08/15/2023 6 Clicks Daily Activity OT Help from another person Eating meals 1 Help from another person taking care of personal grooming 1 Help from another person bathing 1 Help from another person putting on and taking off regular upper body clothing 1 Help from another person putting on and taking off regular lower body clothing 1 Help from another person toileting 1 OT 6 Clicks Score 6 6 Click Score Guidelines: 1 - Unable = Total/Dependent Assist 2 - A lot = Max/Moderate Assist 3 - A little = Minimum/Contact Guard Assist/Supervision 4 - Non = Modified Wilson/Independent ASSESSMENT: Recommend further therapy services in a Skilled Rehab Setting once medically cleared. Will continue to follow patient while in hospital as appropriate. Goals (to be achieved by discharge from acute care): Patient will perform grooming with Close supervision Patient will dress upper body with Contact Guard Patient will perform bed mobility with Minimal assistance Patient will perform bed transfers with Contact Guard Patient will perform commode transfers with Contact Guard Patient will demonstrate safety awareness as evidenced by compliance with safe transfers and mobility PLAN: Continue with Plan as per Initial Evaluation. Aurea MOE, OTR/L Pager: [phone] Secure chat preferred NA = Not Assessed, I = Independent, MS = Modified Independent, Sup = Supervised, Set up = Physical Assistance for Set-up Only, Min = Minimal Assistance, Mod = Moderate Assistance, Max = Max assistance; Dep = Dependent; AROM = Active Range of Motion;PROM=Passive Range of Motion; MMT = Manual Muscle Test; Shld= Shoulder; Add = Adduction; Abd = Abduction Physical Therapy Note Attempted to see patient, however patient just returned from OR, not able to be seen per nurse. 6.4.24: s/p left sided katty holes for evacuation of subdural hematoma Will continue to follow. Vickie Pete, PT, DPT #[phone] Associated Order(s): IP OCCUPATIONAL THERAPY SERVICE REQUEST OCCUPATIONAL THERAPY INITIAL EVALUATION Patient seen from 1018 to 1038 on 5 [facility] unit for 20 minutes. Co-evaluation with PT for safe handling of ICU lines/monitors and to advance mobility of medically complex patient. Evaluation and treatment Reason for Admit: 83 y/o F transferred from OSH with enlarged SDH, AMS, headache. Patient initially presented after fall resulting in SDH and was discharged to SNF 08/04/23 Diagnosis: Acute on chronic left hemispheric SDH with increased mass effect and left to right MLS Precautions/Activity Order: fall, full code, progressive mobility Procedures this admit: scheduled for burrhole evacuation of SDH 08/14/23 Past Medical and Surgical History: HTN, CAD, NSTEMI , carotid stenosis , arthritis, asthma, GERD, seizure disorder, cerebral amyloid angiopathy, prior SAH, DVT SUBJECTIVE: Patient Subjective: March Patient Identified Goal(s): none stated Home Living Situation- patient admitted from SNF, prior to initial admission patient lived alone Prior Functional Status: ambulates with walker , assist with IADL , drives Assistance Available at Home: PRN family assist Patient lives in a 1 story home 2 steps to enter or ramp Full Bathroom on 1 level Bedroom on 1 level. Equipment available at home: walker OBJECTIVE: Patient Identification: patient's id band and date of . Risks and benefits of occupational therapy: Patient informed of risks and benefits of treatment Appearance: IV, tele, BP cuff, pulse ox, external catheter Alertness: WFL Affect: flat Cooperation/Behavior: cooperative Communication: Impaired, some expressive aphasia noted. Able to respond yes/no accurately via head nod Pain: Pain rating: x/10, Location: bilateral hips Grimace, withdrawal Ow to PROM of hips by PT Pain Relief Interventions Implemented: Rest Self Care: Assistance Level Dep Max Mod Min CG CS DS MS I Set-Up Comment Feeding x Anticipated Patient is NPO Grooming/Hygiene x Wash face/hands Bathing:UB x Anticipated Bathing:LB x Anticipated Dressing:UB x Don gown Dressing: LB x Don socks Toileting x External catheter Incontinence care Transfers/Bed Mobility: Assistance Level Dep Max Mod Min CG CS DS MS I Set-Up Comment Toilet Transfers x2 Anticipated Bed Transfers x2 Sit to stand Stand to sit in chair Bed Mobility x2 Supine to sit EOB Ambulation x2 Few steps between bed and chair using walker Max V/T cues Assist to maneuver walker Assist for weight shifting Patient remained seated in bedside chair end of session with chair alarm and chair cushion in place . Call cuevas and telephone within reach. Patient instructed to call for staff assist when ready to return to bed and for all mobility. RN aware of patient location and mobility status. Endurance for Self Care: Impaired BP 153/76 Pulse 72 Temp 98.9 F (37.2 C) (Oral) Resp 20 Wt 178 lb 3.2 oz (80.8 kg) SpO2 100% BMI 27.91 kg/m Static Sitting Balance: Fair Dynamic Sitting Balance: Poor UE Motor: B/L shoulder 0-90 Distal ROM and strength WFL Vision/Perception: N/T Cognition: Orientation: Oriented to person, hospital, 2023 with choices Follows Commands: 1-step consistently Attention: WNL Memory: Impaired Problem Solving: Impaired Safety/Judgement: Impaired Sequencing: Impaired Other Specialized Tests: None Patient/Family Education: Instructed patient in roles of therapy, discharge recommendations 08/13/2023 6 Clicks Daily Activity OT Help from another person Eating meals 1 Help from another person taking care of personal grooming 2 Help from another person bathing 2 Help from another person putting on and taking off regular upper body clothing 2 Help from another person putting on and taking off regular lower body clothing 1 Help from another person toileting 1 OT 6 Clicks Score 9 6 Click Score Guidelines: 1 - Unable = Total/Dependent Assist 2 - A lot = Max/Moderate Assist 3 - A little = Minimum/Contact Guard Assist/Supervision 4 - Non = Modified Wilson/Independent ASSESSMENT: Recommend further therapy services in a Skilled Rehab Setting once medically cleared. Will continue to follow patient while in hospital as appropriate. Rehabilitation Potential: Good Problem List: decreased ADLs, decreased endurance, decreased functional transfers/mobility, impaired balance, decreased cognition, decreased home management tasks/IADLs, and decreased functional activity tolerance Goals (to be achieved by discharge from acute care): Patient will perform grooming with Close supervision Patient will dress upper body with Contact Guard Patient will perform bed mobility with Minimal assistance Patient will perform bed transfers with Contact Guard Patient will perform commode transfers with Contact Guard Patient will demonstrate safety awareness as evidenced by compliance with safe transfers and mobility PLAN: Carly Marcelino will be seen 1-3 times a week. Treatment to include: functional mobility training, ADL retraining, adaptive equipment / compensatory strategy training, and patient / family education and discharge planning, functional task simulation able to discuss the evaluation findings and treatment plan with the patient/family. The patient/family did participate in the development of plan and goals. Aurea Parra MOT, OTR/L Pager: [phone] Secure chat preferred NA = Not Assessed, I = Independent, MS = Modified Independent, Sup = Supervised, Set up = Physical Assistance for Set-up Only, Min = Minimal Assistance, Mod = Moderate Assistance, Max = Max assistance; Dep = Dependent; AROM = Active Range of Motion;PROM=Passive Range of Motion; MMT = Manual Muscle Test; UB = Upper Body; LB = Lower Body Associated Order(s): IP PHYSICAL THERAPY SERVICE REQUEST PHYSICAL THERAPY ACUTE EVALUATION Referral received, chart reviewed. Patient seen from 10:18 to 10:36 on 5W unit for 18 minutes. Eval + treat Eval + treat. Co-eval with OT. Patient required the skills of two therapists for safe mobility and high medical complexity of the patient. 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 No past surgical history on file. Identification was verified by patient verbalizing his/her name and date of . and patient's id band and date of . 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 steps to enter ? steps to bedroom/bathroom Assistance available: currently at SNF. Per chart, patient has a daughter Equipment available: ? 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, Oxygen, IV, and Sequential Compression Devices (SCDs) Behavior: Impaired, Awake, pleasant & cooperative Oriented x 3 Follows 1 step commands consistently and with cues B LE coordination intact B LE sensation intact Pain: Site/Location: all over; Pain Scale: mild/10 Pain Relief Interventions Implemented: Positioning, Rest, and Notified Nurse Passive ROM: WFL Strength/Active ROM: Grossly at least 3-/5 throughout Mobility: Rolling to left: minimal assistance Sidelying to sit: minimal assistance Sitting balance: Good Sit to stand: minimal assistance Transfers: minimal assistance with R W Ambulation/Gait: Patient walked 5 ft with RW min A, slow pace, decreased (B) LE step lengths, difficulty maneuvering RW Endurance: Impaired Patient/Family Education: Instructed Patient in roles of therapy. Instructed Patient in roles, goals, treatment plan: demonstrated good verbal understanding. Instructed patient in Exercise Program for Ankle pumps x 10 reps Patient up in chair with call light in reach. Chair alarm intact. DME: With Patients permission ordered no equipment via [employer] Order. If any questions contact [facility] DME Provider at [phone]. 08/13/2023 6 Clicks Basic Mobility PT Difficulty turning over in bed 2 Difficulty sitting down and standing up from a chair with arms 2 Difficulty moving from lying on back to sitting on the side of the bed 2 Help from another person moving to and from bed to a chair 2 Help from another person to walk in hospital room 3 Help from another person climbing 3-5 steps with a railing 1 PT 6 Clicks Score 12 6 Click Score Guidelines: 1 - Total = Requires total assistance, or cannot do at all. 2 - A lot = Requires a lot of help (maximun to moderate assistance) Can use assistive devices. 3 - A little = Requires a little help (supervision, minimal assistance) Can use assistive devices. 4 - None = Does not require any help and does the activity independently. Can use assistive devices. ASSESSMENT: Carly Marcelino is a 83 year old female s/p AMS and (L) SDH presents with aphasia, decreased strength and decreased endurance, causing patient difficulty with bed mobility, transfers and ambulation quality/tolerance. Patient would benefit from acute PT services of gait training, therex, and theract to improve patient ambulation quality/tolerance, transfer skills and strengthening to enhance functional mobility and safety. Recommend further therapy services in a Snf Setting once medically cleared. Will continue to follow patient while in hospital as appropriate. Problems: Pain Decreased ROM/strength Decreased functional mobility Decreased endurance Decreased balance Decreased education in exercise/precautions Decreased cognition/behavior Impaired safety awareness Rehabilitation Potential: Fair Goals (to be achieved by discharge from acute care): Patient will achieve acceptable level of pain control to allow participation in therapy. Patient will increase bed mobility to contact guard assistance Patient will perform sit to/from stand with rolling walker with contact guard assistance Patient will ambulate 50 feet with rolling walker with contact guard assistance Patient will increase ROM/Strength/Endurance/Balance to allow for above goals. Patient/Family independent with exercise program/precautions. PLAN OF CARE: Frequency: Patient to be seen 1-3 times a week Interventions: Functional mobility ROM/Strengthening Home exercise program Discharge planning and equipment ordering as needed Patient /Family education The evaluation findings and treatment plan were discussed with the patient/family. The patient/family indicated understanding and agreement with the plan. Vickie Pete PT, DPT #[phone] NA = Not Assessed, I = Independent, MS = Modified Independent, Sup = Supervised, Set up = Physical Assistance for Set-up Only, Min = Minimal Assistance, Mod = Moderate Assistance, Max = Max assistance; Dep = Dependent; AROM = Active Range of Motion; PROM = Passive Range of Motion; MMT = Manual Muscle Test; LE = Lower Extremity Images from the original note were not included. NEUROSURGERY CRANIAL TRAUMA H&P Patient Name: Carly Marcelino Primary Care Physician: No primary care provider on file. CONSULTED BY: Trauma CONSULTED FOR: Mixed density L hemispheric SDH CHIEF COMPLAINT: S/p AMS HPI: Pt is an 83 year old female with PMH of HTN, CAD (NSTEMI, stent in RCA, takes ASA 81), carotid stenosis brought in as transfer from OSH ED s/p AMS. Upon arrival to OSH a CTH was conducted which shows a mixed density left hemispheric subdural hematoma measuring up to 2.2 cm at greatest thickness with increased mass effect upon the underlying brain parenchyma and resultant 1.2 cm left to right midline shift for which NSGY was consulted. Of note, patient had GLF 2 weeks ago, was found to have a subdural and was admitted; no midline shift at that time, no AMS. Was doing well and discharged to rehab facility. Started on lovenox recently for DVT ppx and AMS was noted to start on . Presented to ED today with complaints of WISDOM. NSGY consulted for further recs and management. Antiplatelet/Anticoagulant: ASA (currently being held) Previous TBI:Yes PAST MEDICAL HISTORY: No past medical history on file. PAST SURGICAL HISTORY: No past surgical history on file. FAMILY HISTORY: No family history on file. SOCIAL HISTORY: Social History Occupational History Not on file Tobacco Use Smoking status: Not on file Smokeless tobacco: Not on file Substance and Sexual Activity Alcohol use: Not on file Drug use: Not on file Sexual activity: Not on file MEDICATIONS: ALLERGIES: Allergies Allergen Reactions Hydantoins Anaphylactic Shock and Other Other Reaction(s): loss of muscle tone, Unknown Reaction, loss of muscle tone throat swells ,hives Hydrochlorothiazide Hyponatremia Valproic Acid Other Daughter states she almost , had an out of body experience Sertraline Other insomnia Dilantin [Phenytoin] Amlodipine Base Other Hypertension, intolerance Carbamazepine Itching Tegretal caused itching Labetalol Other Intolerance Mastisol Rash Mometasone Furo-Formoterol Fum Other and Nausea Falls Nifedipine Other intolerance Nitrofurantoin Rash across nose/ cheeks COMPLETE REVIEW OF SYSTEMS: Unable to conduct 2/2 patient's exam; patient is confused LABS: CBC/PT/INR WBC RBC Hgb Hct MCV RDW Plt PT aPTT INR 08/12/231918 9.0 3.23 10.0 29.5 91 14.2 272 08/12/231918 -- Comment: CLOT This is a corrected result. Previous result on 08/12/2023 at 2020 EDT was 0.96 [C] [C] - Corrected Result Basic Metabolic Panel Na K Cl CO2 Gap Glu BUN Cr Ca Mg PO4 08/12/231918 138 4.1 106 25 11 91 21 0.73 8.8 NEURO EXAM: A&Ox1-2 (place with choices, not year) PERRL EOMI FS TM BUE: 07/14, no drift BLE: 07/14 PHYSICAL EXAM: Vitals: 08/13/23 0030 BP: 123/75 Pulse: 80 Resp: 18 Temp: SpO2: 94% General appearance: Alert, pleasant, no distress. Skin: Skin color normal. No rashes or lesions. Head: Normocephalic. No masses, lesions. Eyes: Conjunctivae not injected /corneas clear. Ears: External ears normal. Nose/Sinuses: External nose normal. Neck: Neck supple. No adenopathy. Lungs: No acute respiratory distress. Heart: Regular rate. RADIOLOGY: CTH: Mixed density left hemispheric subdural hematoma measuring up to 2.2 cm at greatest thickness with increased mass effect upon the underlying brain parenchyma and resultant 1.2 cm left to right midline shift. Right lateral ventricular entrapment [place] CT SCORE: 1. Basal cisterns: 1: Compressed 2. Midline shift: 1: Greater than 5 mm 3. Epidural mass lesion: 1: Absent 4. Intraventricular blood or traumatic SAH: 0: Absent Total Score: 3 (Calculated sum + 1) Six Month Mortality: Score 1: 0% Score 2: 7% Score 3: 16% Score 4: 26% Score 5: 53% Score 6: 61% 1. TBI sub-type: SDH: Greater than or equal to 1 cm 2. Laterality: Left 3. Location: Convexity 4. Pupillary response: Both reactive 5. Associated conditions: None 6. Loss of consciousness: None ASSESSMENT/PLAN: Pt is an 83 year old female with PMH of HTN, CAD (NSTEMI, stent in RCA, takes ASA 81), carotid stenosis brought in as transfer from OSH ED s/p AMS. Upon arrival to OSH a CTH was conducted which shows a mixed density left hemispheric subdural hematoma measuring up to 2.2 cm at greatest thickness with increased mass effect upon the underlying brain parenchyma and resultant 1.2 cm left to right midline shift for which NSGY was consulted. Of note, patient had GLF 2 weeks ago, was found to have a subdural and was admitted; no midline shift at that time, no AMS. Was doing well and discharged to rehab facility. Started on lovenox recently for DVT ppx and AMS was noted to start on . Presented to ED today with complaints of WISDOM. NSGY consulted for further recs and management. -ICU admission under trauma service -Q1 neuro checks -OR for L katty hole evac on Sunday 08/13 (consented with patient's mPOA/ daughter) -NPO midnight prior to OR -Pre-op labs (CBC, BMP, PT/INR, PTT, T&S) -Continue home Keppra -SBP <170 per trauma guidelines -Hold home ASA -Hold all antiplatelets/anticoagulants -Plts >100, INR <1.4 -Normonatremia, normothermia, euvolemia -SCDs only at this time for DVT prophylaxis. Hold SQH at this time. -No acute neurosurgical intervention. Will continue to follow. Patient seen within 30 minutes of initial consultation. Recommendations provided directly to the trauma service. Above plan was discussed with the (Chief) within 30 minutes of consult and discussed with the staff Dr. Dalton Galvin PA-C Neurosurgery Pager: [phone] Split/Shared Documentation I approve the management plan for this patient and take responsibility for the plan as documented. Independent Interpretation of Tests Performed by Another Physician/ASH: I personally performed, reviewed, and interpreted CTH with findings of L mixed density SDH with MLS. Vignesh Galvin PA-C documented in this encounter [facility] 08-24-2023 Progress note Formatting of t his note might be different from the original. CASE MANAGEMENT/SOCIAL WORK SNF DC NOTE: Pt has been cleared for transfer to SNF on this date Pt will be transferred to [facility] via Jerel Mcneil ([id number]) at 2pm Nursing report may be called to Please call report to [phone] station 1 Support person notified: HEBERT ALVAREZ (Daughter) [phone] Patient/Family, team aware of above and agreeable. For discharge, please ensure the following is completed: MD to place DC order, reconcile meds, and print narcotics to go with patient to SNF [place] to print Discharge Summary, [place], Summary of Care, Narcotic Scripts, and Signature Page and place in a packet to be given to armored car guard and driver If transport/discharge needs to be adjusted/cancelled, team (MD/RN) to cancel transport, update support person, and update receiving facility. [facility] 08-24-2023 Miscellaneous Notes CASE MANAGEMENT/SOCIAL WORK SNF DC NOTE: Pt has been cleared for transfer to SNF on this date Pt will be transferred to [facility] via Jerel Mcneil ([id number]) at 2pm Nursing report may be called to Please call report to [phone] station 1 Support person notified: HEBERT ALVAREZ (Daughter) [phone] Patient/Family, team aware of above and agreeable. For discharge, please ensure the following is completed: MD to place DC order, reconcile meds, and print narcotics to go with patient to SNF [place] to print Discharge Summary, [place], Summary of Care, Narcotic Scripts, and Signature Page and place in a packet to be given to armored car guard and driver If transport/discharge needs to be adjusted/cancelled, team (MD/RN) to cancel transport, update support person, and update receiving facility. SW SDU NOTE Per interdisciplinary rounds, Pt medically ready for SNF. Per MD, plan for Pt to return to SNF with Corepak in place and have ST follow-up Outpatient and at SNF. Plan for DC to [facility]. No pre-cert needed for DC. Per RN, intermittent roll-belt use ongoing since last night. Pt must be restraint free (including roll belt) for 24hrs prior to DC to any SNF. NICHO Ring, ILIANA Inpatient Cnc Operator P: [phone] Notified by primary team that patient will be discharging to SNF today. Plan: -Trauma primary, dispo per primary -OK for Diet -Continue Keppra per NCCU reccs -Hold home ASA until NSGY f/u this week -OK for SCDs and SQH -Patient OK for discharge from NSGY perspective, will see patient in clinic this week. Binh Hatr MD Neurosurgery, Resident Pager: [phone] 08/21/2023 - 9:01 AM Please page the on-call pager after 6pm and on weekends Problem: Routine Care: Goal: Patient care will be managed and maintained throughout hospital stay per unit specific routine care procedure Outcome: Progressing Patient restraints removed this morning. Patient has not pulled at devices. Patient calm and cooperative with staff, A&Ox2; disoriented to date/time. Patient appears drowsy but is arousable to touch. Patient has had several large bowel movements today. Patient currently OOB to chair with chair alarm in place, call light in reach. Problem: Routine Care: Goal: Patient care will be managed and maintained throughout hospital stay per unit specific routine care procedure Outcome: Progressing Note: Purposeful hourly rounding and assessment throughout shift Problem: Altered Elimination: Goal: Establishment of normal bowel function will be achieved and maintained Outcome: Progressing Problem: Impaired Mobility: Goal: Ability to tolerate increased activity will improve and be maintained Outcome: Progressing Note: PT/OT Problem: VTE Prophylaxis: Goal: Will be free of DVT Outcome: Progressing Problem: Fluid and Electrolyte Imbalance: Goal: Adequate fluid and electrolyte balance will be achieved and maintained Outcome: Progressing Problem: Altered Neurological Status: Goal: Optimal neurological status will be maintained or regained Outcome: Progressing Note: Q4 neurological assessments throughout shift Problem: Acute Pain: Goal: Ability to identify pain intensity on a pain scale and rate it consistently will be achieved and maintained Outcome: Progressing Goal: Understanding of proper administration and use of medicines will be achieved Outcome: Progressing Problem: Safety: Goal: Patient will remain free of falls during hospital stay Outcome: Progressing Goal: Free from injury during hospitalization Outcome: Progressing Problem: Routine Care: Goal: Patient care will be managed and maintained throughout hospital stay per unit specific routine care procedure Outcome: Progressing Note: Purposeful hourly rounding and assessment throughout shift Problem: Altered Elimination: Goal: Establishment of normal bowel function will be achieved and maintained Outcome: Progressing Problem: Impaired Mobility: Goal: Ability to tolerate increased activity will improve and be maintained Outcome: Progressing Note: PT/OT Problem: VTE Prophylaxis: Goal: Will be free of DVT Outcome: Progressing Problem: Fluid and Electrolyte Imbalance: Goal: Adequate fluid and electrolyte balance will be achieved and maintained Outcome: Progressing Problem: Altered Neurological Status: Goal: Optimal neurological status will be maintained or regained Outcome: Progressing Note: Q4 neurological assessments throughout shift Problem: Acute Pain: Goal: Ability to identify pain intensity on a pain scale and rate it consistently will be achieved and maintained Outcome: Progressing Goal: Understanding of proper administration and use of medicines will be achieved Outcome: Progressing Problem: Safety: Goal: Patient will remain free of falls during hospital stay Outcome: Progressing Goal: Free from injury during hospitalization Outcome: Progressing Problem: Routine Care: Goal: Patient care will be managed and maintained throughout hospital stay per unit specific routine care procedure Outcome: Progressing Problem: Altered Elimination: Goal: Establishment of normal bowel function will be achieved and maintained Outcome: Progressing Note: Pt constipated, received prn dulcolax. If BM still not achieved, pt planned to have enema tomorrow. Problem: Impaired Mobility: Goal: Ability to tolerate increased activity will improve and be maintained Outcome: Progressing Problem: VTE Prophylaxis: Goal: Will be free of DVT Outcome: Progressing Note: SCDs maintained, also on subcutaneous heparin. Problem: Fluid and Electrolyte Imbalance: Goal: Adequate fluid and electrolyte balance will be achieved and maintained Outcome: Progressing Problem: Altered Neurological Status: Goal: Optimal neurological status will be maintained or regained Outcome: Progressing Note: Pt neuro checks changed to q4. Intermittently follows commands. Has not been able to verbally answer questions. Will continue to monitor. Problem: Safety: Goal: Patient will remain free of falls during hospital stay Outcome: Progressing Goal: Free from injury during hospitalization Outcome: Progressing Social Work/Case Management: Reason for placement: PT/OT Therapies Patient level of care required : Skilled Applicant's potential for returning to community: Convalescent stay:<30 days Prognosis: Good Rehab Potential: Improve Mental/Behavioral status:Alert, Cooperative, Impaired memory Affect: Calm Social Work Assessment Functional status prior to admission: Prior to original hospital admission, pt with Community agencies active with patient: n/a Support system: Yolis Alvarez, Capacity for independent living/mail inserter plan: TBD, hope for plan to DC with family Other hospital admissions within the past 60 days: Yes at [facility] on 07/[facility]/23 Other pertinent problems: PATRICIA Valdez LISW Problem: Routine Care: Goal: Patient care will be managed and maintained throughout hospital stay per unit specific routine care procedure Outcome: Progressing Problem: Altered Elimination: Goal: Establishment of normal bowel function will be achieved and maintained Outcome: Progressing Problem: Impaired Mobility: Goal: Ability to tolerate increased activity will improve and be maintained Outcome: Progressing Problem: VTE Prophylaxis: Goal: Will be free of DVT Outcome: Progressing Problem: Fluid and Electrolyte Imbalance: Goal: Adequate fluid and electrolyte balance will be achieved and maintained Outcome: Progressing Problem: Altered Neurological Status: Goal: Optimal neurological status will be maintained or regained Outcome: Progressing Problem: Acute Pain: Goal: Ability to identify pain intensity on a pain scale and rate it consistently will be achieved and maintained Outcome: Progressing Goal: Understanding of proper administration and use of medicines will be achieved Outcome: Progressing Problem: Safety: Goal: Patient will remain free of falls during hospital stay Outcome: Progressing Goal: Free from injury during hospitalization Outcome: Progressing Pre-Procedure Note HISTORY: Procedure: LMMA embolization Indication: AoC SDH No past medical history on file. Substance Abuse History: History Drug Use Not on file Current Facility-Administered Medications Medication Dose Route Frequency Last Rate Last Admin losartan (COZAAR) tablet 50 mg Oral Daily 50 mg at 08/15/23 0817 levETIRAcetam (KEPPRA) tablet 500 mg Oral 2x Daily 500 mg at 08/15/23 0817 Followed by [START ON 08/21/2023] levETIRAcetam (KEPPRA) tablet 500 mg Oral At Bedtime labetalol (TRANDATE) 5 mg/mL injection 10 mg Intravenous Push Q6H PRN 10 mg at 08/14/23 1449 sodium chloride 0.9 % iv infusion Intravenous Continuous 75 mL/hr at 08/15/23 1000 Rate Verify at 08/15/23 1000 albuterol (PROVENTIL HFA) 108 (90 Base) MCG/ACT HFA inhaler 2 Puff Inhalation Q4H PRN atorvastatin (LIPITOR) tablet 40 mg Oral At Bedtime 40 mg at 08/14/23 2225 acetaminophen (TYLENOL) tablet 650 mg Oral Q4H PRN 650 mg at 08/15/23 0817 senna (SENOKOT) tablet 8.6 mg Oral At Bedtime 8.6 mg at 08/14/23 2225 bisacodyl (DULCOLAX) 5 MG enteric coated tablet 10 mg Oral Daily PRN Allergies: Hydantoins, Hydrochlorothiazide, Valproic acid, Sertraline, Dilantin [phenytoin], Amlodipine base, Carbamazepine, Labetalol, Mastisol, Mometasone furo-formoterol fum, Nifedipine, and Nitrofurantoin PHYSICAL EXAM: Blood pressure 151/78, pulse 76, temperature 98.8 F (37.1 C), resp. rate 21, weight 178 lb 3.2 oz (80.8 kg), SpO2 98%. Lungs: Clear to auscultation bilaterally Heart: Regular rate and rhythm Pertinent Findings: Labs Reviewed? Yes Recent Labs: Result for specified components in the past 45 days Component Date/Time Result Units Hemoglobin 08/15/2023 5:56 AM 8.9 g/dL Hematocrit 08/15/2023 5:56 AM 26.6 % Platelet 08/15/2023 5:56 AM 314 K/uL aPTT 08/13/2023 6:49 PM <21 sec Protime 08/13/2023 6:49 PM 12.1 sec INR 08/13/2023 6:49 PM 1.08 FXAUN --- not found ANTIFXALMWHE --- not found Creatinine 08/15/2023 5:56 AM 0.57 mg/dL Planned Sedation: Moderate Planned Sedation Medications: VERSED (midazolam) and fentanyl ASA Classification: Class III: Individual with multiple system disease or well controlled major system disease. Disease status limits daily activity. Mallampati Airway Assessment: Class I Uvula, faucial pillars, soft palate visible Patient or family history of adverse reactions involving sedation/anesthesia: No patient or family history of adverse reaction PRE-PROCEDURE VERIFICATION: Site of Procedure: not applicable Site Marked pre-procedure: N/A Pre-Procedure Pain Rating: See nursing notes Advanced Directives (Living will, health care power of attorney lawyer): none Patient Recent Code Status: Full Code Code Status For This Procedure: Full Code Royce Casarez MD Radiology Problem: Routine Care: Goal: Patient care will be managed and maintained throughout hospital stay per unit specific routine care procedure Outcome: Progressing Problem: Altered Elimination: Goal: Establishment of normal bowel function will be achieved and maintained Outcome: Progressing Problem: Impaired Mobility: Goal: Ability to tolerate increased activity will improve and be maintained Outcome: Progressing Problem: VTE Prophylaxis: Goal: Will be free of DVT Outcome: Progressing Problem: Fluid and Electrolyte Imbalance: Goal: Adequate fluid and electrolyte balance will be achieved and maintained Outcome: Progressing Problem: Altered Neurological Status: Goal: Optimal neurological status will be maintained or regained Outcome: Progressing Problem: Acute Pain: Goal: Ability to identify pain intensity on a pain scale and rate it consistently will be achieved and maintained Outcome: Progressing Goal: Understanding of proper administration and use of medicines will be achieved Outcome: Progressing Problem: Safety: Goal: Patient will remain free of falls during hospital stay Outcome: Progressing Goal: Free from injury during hospitalization Outcome: Progressing Neurosurgery Operative Note Name: CARLY MARCELINO MR#: [id number] ENC#: [id number] Date of Procedure: 08/14/2023 ATTENDING SURGEON: Artem Li MD FIRST SURGEON: Misael Snowden MD. PREPROCEDURE DIAGNOSIS: Left nhqlw-pt-kbjbtpr subdural hematoma with brain compression midline shift. POSTPROCEDURE DIAGNOSIS: Left ygzrx-fj-gjdkefc subdural hematoma with brain compression midline shift. ANESTHESIA: General endotracheal anesthesia. PROCEDURES: 1. Left-sided bur holes x2 for evacuation of ciehifzw-tb-nivxtdy subdural hematoma. 2. Placement of left-sided subgaleal drain. OPERATIVE INDICATIONS: The patient is an 83-year-old female, who had suffered a previous head bleeds and was admitted several weeks prior with a fall. CT head demonstrated a left acute subdural hematoma. She was noted to be neurologically at her baseline and so she was managed conservatively. She then re-presented several weeks later with confusion. Repeat CT head was obtained, which demonstrated a new chronic subdural hematoma with a small residual subacute acute component with brain compression and midline shift. Given the imaging findings and neurological exam change, she was recommended for surgical intervention. All risks, benefits and alternatives of surgery discussed with the patient's daughter, who agreed to proceed with the operation. Informed consent was documented separately in the medical record. FINDINGS: Please see procedure note section for more details. OPERATIVE PROCEDURE: The patient was brought to the preoperative holding area, identified by Surgery, Nursing, Anesthesia and all agreed to proceed. She was then brought to the operating room. She was placed under general endotracheal anesthesia. Intravenous lines were placed. She was positioned with the left side of the head up on a donut with a shoulder bump and careful attention was paid toward pressure point and venous drainage. We marked out two left linear incisions, one in the frontal area and one in the parietal area and clipped hair over this area. The patient was then prepped and draped in the usual sterile fashion. A preoperative time-out was completed. The patient identified, equipment confirmed, procedure confirmed, and intravenous antibiotics were administered prior to incision. We made an incision over the left side of the skull in the frontal and parietal incision sites using a #10 scalpel blade. Soft tissues dissected using Bovie and bipolar electrocautery. We placed self-retaining retractors. Then, using a high-speed drill with thermometer maker bit, we performed one left frontal and one left parietal bur hole and then curetted away the bony edges using curettes. We then cauterized the dura using bipolar electrocautery and incised the dura in a cruciate fashion using a #11 scalpel blade. We then cauterized the dural edges back using bipolar electrocautery. We immediately encountered copious amounts of chronic subdural hematoma that was evacuated under high pressure. We then used irrigation in both bur holes and irrigated the subdural space until we obtained clear back wash out of both bur holes. We irrigated all quadrants until clear backwash was achieved. We were able to visualize the cortical surface of the brain, which appeared decompressed. We then tunneled a subgaleal drain, obtained meticulous hemostasis, and initiated closure. The galea was closed using interrupted 2-0 Vicryl sutures and the skin using a 3-0 Ethilon sutures. The drain was affixed using 3-0 Ethilon suture. Sterile dressing was applied. The patient was then extubated, found to be neurologically stable, and transferred back to the ICU. Dr. Li was present throughout the entire surgery and supervised Dr. Snowden throughout the entire operation. COUNTS: Correct and verified x2. ESTIMATED BLOOD LOSS: 50 mL. SPECIMENS: None. DRAINS: One Subgaleal Drain. IMPLANTS: None. COMPLICATIONS: None. Artem Li MD MK/MedQ/Dict: 08/14/2023 14:10:59 TRANS: 08/14/2023 15:35:14 JOB: [id number] DictJob#: [id number] Brief Operative Note MAIN OR 02 Carly Marcelino 83 year old female Surgical Contact Serial Number: [id number] Preoperative Diagnosis: Pre-op Diagnosis * SDH (subdural hematoma) (HCC) [S06.5XAA] Postoperative Diagnosis: * SDH (subdural hematoma) (HCC) [S06.5XAA] Procedures: left sided katty holes for evacuation of subdural hematoma No data filed Surgeon(s): Surgeon(s): Artem Li MD Staff: Scrub: Edson Pierre RN Conference Center Manager Nurse: Shital Gonsalves RN; Amilcar Kasper RN Director Of Rehabilitation And Wellness: Binh Hart MD; Jolene Snowden MD Anesthesia: General Anesthesiologist: Leora Fleming MD Vamp Liner: Jeremiah Ochoa MD Anesthesia Staff: Lima Whittaker CAA Specimen(s): * No specimens in log * Estimated Blood Loss: 20cc Lines/Drains: Peripheral IV Access: 08/12/23 1925 20 gauge Anterior;Right (Active) Site Assessment WNL;Dressing intact 08/14/23 1200 Infusion Status Port #1 Capped;Patent 08/14/23 1200 Peripheral IV Access: 08/12/23 2000 18 gauge x 1.88 inch Right Antecubital (Active) Site Assessment WNL;Dressing intact 08/14/23 1200 Infusion Status Port #1 Capped;Patent 08/14/23 1200 Peripheral IV Access: 08/14/23 1321 16 gauge Right Forearm (Active) Surgical Drain Angel Mosher -- Flat # 1 7 fr Left;Upper (Active) Temporarily Retained Foreign Object: Yes Location: Left scalp Object: drain Anticipated removal date: POD2 Findings: Chronic appearing blood evacuated under pressure. Satisfactory evacuation. Complications: None Status at end of surgery: Stable Activity: Ad Halley Surgical wound class: Yes, wound was clean. Patient Class: Inpatient. Is this a patient scheduled as an outpatient that needs to be admitted as an inpatient? No Dr. Li was present in the OR for the critical portion of the procedure and procedure sign-out. Signed by Jolene Snowden MD 08/14/2023 2:03 PM Blood Attestation: ATTESTATION OF INFORMED CONSENT FOR BLOOD: The transfusion of blood and/or blood components were discussed with the patient and/or legal district representative. The risks, benefits and alternatives were reviewed. Questions regarding blood transfusions were answered. The patient /or the patient s legal district representative agree with the plan for transfusion of blood and/or blood components. Consent obtained for Left-sided Katty hole evacuations with Dr. Li as staff. Clarified code status with patient's daughter (Hebert Alvarez): patient is to remain full code both perioperatively and while in the unit at this time. Binh Hart MD Neurosurgery, Resident Pager: [phone] 08/14/2023 - 7:01 AM Please page the on-call pager after 6pm and on weekends Problem: Routine Care: Goal: Patient care will be managed and maintained throughout hospital stay per unit specific routine care procedure Outcome: Progressing Problem: Altered Elimination: Goal: Establishment of normal bowel function will be achieved and maintained Outcome: Progressing Problem: Impaired Mobility: Goal: Ability to tolerate increased activity will improve and be maintained Outcome: Progressing Problem: VTE Prophylaxis: Goal: Will be free of DVT Outcome: Progressing Problem: Fluid and Electrolyte Imbalance: Goal: Adequate fluid and electrolyte balance will be achieved and maintained Outcome: Progressing Problem: Altered Neurological Status: Goal: Optimal neurological status will be maintained or regained Outcome: Progressing Problem: Acute Pain: Goal: Ability to identify pain intensity on a pain scale and rate it consistently will be achieved and maintained Outcome: Progressing Goal: Understanding of proper administration and use of medicines will be achieved Outcome: Progressing Problem: Safety: Goal: Patient will remain free of falls during hospital stay Outcome: Progressing Goal: Free from injury during hospitalization Outcome: Progressing Division of Trauma, Surgical Critical Care, EGS Ticket to Roll Note . Report called to Dr Richie Emmanuel who is the RUP The patient is transferring from ED, room # 1, to TICU, room # 210. The patient was added to the Trauma Surgery list. Agnieszka Moctezuma DO RUP = Receiving unit provider RNF = Regular nursing floor documented in this encounter [facility] 08-23-2023 Hospital Discharge instructions Derick Edwards APRN-WEB PROGRAMMER - 08/23/2023 1:38 PM EDT Discharge Instructions: Date of admission: 08/12/2023 Date of discharge: 08/24/2023 You are being [facility] to [facility] Follow up: - Please call to schedule your follow-up appointments - information provided separately. - You will need to follow up with: - Neurology ( Dr. Addison). Call for appointment as soon as possible - Neurosurgery (Dr. Li) for follow up after your head injury. Call for appointment as soon as possible - Urology in 2 weeks for management of your kunz catheter - See below for information regarding contacting your primary care physician or establishing care at [facility] if you do not already have one. Wound Care and Showering/Bathing: - Okay to shower daily -- allow soap and water to run down your incisions (head). Do not scrub the area. - If you cannot maintain your balance in the shower, then you should not shower. Sponge baths are the best way to maintain hygiene while your are healing. - To sponge bath, wet a washcloth with soapy water and gently wash body with the washcloth. Then use a dry washcloth to wipe off. - No submerging the wound in water or pools until cleared by our office. - If you notice any increased redness swelling or drainage from your wound call our office immediately. - If you begin to experience progressive and rapidly increasing pain that seems out of proportion to what you normally have been experiencing from your baseline pain after surgery/injury, if you notice severe headache, dizziness, balance issues, fever, confusion or any other new or concerning symptoms - you NEED TO CALL US IMMEDIATELY. Alternatively, you may come into the [facility] Emergency Department IMMEDIATELY for an emergent evaluation Activity and Weight Bearing: - You do not have any weight bearing limitations/restrictions. Avoid strenuous activity Meals: - Continue Nutren 1.5 at 45 mL/hr via Corpak. Last evaluated by Speech on 08/23, who advised supervised meal trays with tube feedings. Pain control: - For MILD to MODERATE pain (pain 1-6 out of 10 on a pain scale) take: -- Tylenol 325 mg, 1-2 tablets every 6 hours as needed. - Avoid aspirin until follow-up appointment with Dr. Li (please obtain CT head prior to appointment, which is ordered) INSPECTOR CHIEF Recommendations/Meals: - Recommend Regular Diet with Thin Liquids. No overt signs/symptoms of cardiopulmonary distress/decline with any PO throughout bedside swallow assessment. No instrumental swallowing assessments completed this admission or noted previous in claudia review. - Consider cognitive interventions to assist patient in building routines and assisting with self care - Continue Nutren 1.5 at 45 mL/hr via Corpak. Last evaluated by Speech on 08/23, who advised supervised meal trays with tube feedings. Update your primary care physician or establish care: Please see your primary care physician at the next available appointment for follow up. Please call either on the day of your discharge, or the day after, to make the appointment. If you are followed by a managed care company or if your insurance requires, call your physician for authorization to be seen in a specialty clinic. If you do not have a primary physician please call [phone] for guidance on finding a [facility] provider. If you have questions or concerns , if your condition worsens or you develop new symptoms please call the [facility] Line at [phone]. The following attachments cannot be sent through Care Everywhere.Subdural Hematoma Discharge Instructions (Martiniquais)Traumatic Brain Injury (Martiniquais)documented in this encounter [facility] 08-23-2023 Consult note Formatting of th is note is different from the original. OCCUPATIONAL THERAPY PROGRESS SUMMARY Patient seen from 10:57 to 11:20 on 5E unit for 23 minute treatment. SUBJECTIVE: Patient Subjective/Goals: Can you hand me that walker? OBJECTIVE: Pain: No pain reported or noted Pain Relief Interventions Implemented: None required; No pain at this time Appearance: In bed, hospital gown and socks, kunz, IV infusing, corpak. Behavior: Alert and awake, pleasant and cooperative. Cognition: Oriented to self, month, year, location. Identifies date as . Requires cues during session for sequencing, safety, problem-solving, attention. UE Status: grossly WFL for mobility/ADLs Self Care: Assistance Level NA Dep Max Mod Min CG CS DS MS I Set-Up Cues Comment Feeding x NPO Grooming/ Hygiene x x x Seated in chair to wash hands and face Bathing: Upper Body x x x Assist for thoroughness Bathing: Lower Body x x x Assist for feet and posterior area Dressing: Upper Body x x x Anticipate Dressing: Lower Body x x x To don socks Toileting x x x (+) uknz Assist for posterior hygiene in standing after bowel incontinence Toilet Transfers x Bed Transfer x x x Bed to chair with wheeled walker Bed Mobility x x x Supine to sit EOB and grab bar use Endurance for Self Care: Impaired but improving Patient/Family Education: Ongoing education regarding role of therapy and importance of participating in mobility and self-care during hospital stay. DME: With Patients permission ordered no equipment via [employer] Order. If any questions contact [facility] DME Provider at [phone]. 08/23/2023 6 Clicks Daily Activity OT Help from another person Eating meals 1 Help from another person taking care of personal grooming 3 Help from another person bathing 2 Help from another person putting on and taking off regular upper body clothing 3 Help from another person putting on and taking off regular lower body clothing 2 Help from another person toileting 2 OT 6 Clicks Score 13 6 Click Score Guidelines: 1 - Unable = Total/Dependent Assist 2 - A lot = Max/Moderate Assist 3 - A little = Minimum/Contact Guard Assist/Supervision 4 - Non = Modified Wilson/Independent ASSESSMENT: Recommend further therapy services in a Skilled Rehab Setting once medically cleared. Will continue to follow patient while in hospital as appropriate. Goals (to be achieved by discharge from acute care): ONGOING unless indicated Patient will perform grooming with Close supervision MET Patient will dress upper body with Contact Guard Patient will perform bed mobility with Minimal assistance MET Patient will perform bed transfers with Contact Guard MET Patient will perform commode transfers with Contact Guard Patient will demonstrate safety awareness as evidenced by compliance with safe transfers and mobility Revised [employer]ed Circuit Layout Taper Goals 08/23/23 Goals (to be achieved by discharge from acute care) Patient will perform grooming with CGA while standing at sink Patient will dress upper body with Contact Guard Patient will dress lower body with Moderate assistance Patient will perform toileting with Moderate assistance Patient will perform bed mobility with Close supervision Patient will perform bed transfers with Close supervision Patient will perform commode transfers with Contact Guard Patient will demonstrate safety awareness as evidenced by compliance with safe transfers and mobility PLAN: Continue with Plan as per Initial Evaluation. Shira Palacio OTR/L NA = Not Assessed, I = Independent, MS = Modified Independent, Sup = Supervised, Set up = Physical Assistance for Set-up Only, Min = Minimal Assistance, Mod = Moderate Assistance, Max = Max assistance; Dep = Dependent; AROM = Active Range of Motion;PROM=Passive Range of Motion; MMT = Manual Muscle Test; Shld= Shoulder; Add = Adduction; Abd = Abduction [facility] 08-23-2023 History of Present illness Narrative Social Work Progress Note Pt is rec for dc to SNF. Pt was accepted by [facility] Pt is medically clear. Pt will not need precert. Pt will need to be restraint free (including roll belt and mitts) 24hrs prior to dc SW will continue to follow ILIANA Ortiz Images from the original note were not included. GENERAL INFORMATION TRAUMA FLOOR - STAFF NOTE Patient seen and examined on 08/23/2023 Patient Name: Carly Marcelino Admission Date: 08/12/2023 INTERVAL HISTORY/EVENTS Background: 83 year old female brought in as transfer from [facility] ED for subdural acute on chronic with new midline shift, AMS. Patient had GLF 2 weeks ago, had subdural and was admitted; no midline shift at that time, no AMS. Was doing well and discharged to rehab facility. Started on lovenox recently for DVT ppx. AMS noted on . Presented to ED today. Complaints of headache. No new injury. Hospital Course: 08/12/2023: Admitted to TICU with acute on chronic subdural hematoma 08/13/2023: Labetalol started for continued htn (daughter states there is no allergy) 08/14/2023: OR w/NSG for left sided katty holes for evacuation of subdural hematoma 08/15/2023: Underwent angio embolization, acute change in mental status with worsening expressive aphasia and right-sided weakness. EEG started and NCC consulted. 08/16/2023: EEG completed and seen by NCC. Continued to have persistent expressive aphasia and right-sided weakness. Bedside swallow was poor, so Corpek was placed. 08/17/2023: No acute events overnight, corpak placed mri completed 08/18/2023: No acute events 08/19/2023: Groin wound with drainage 08/20/2023: No acute events, awaiting SNF placement following 24h without restraint 08/21/2023: NSGY signed off, no acute events 08/22/2023: Restraints removed; improved alertness, remains happily confused though more aligned to baseline 24 Hour Events: First encounter with patient. Pulled out corpak last evening, requiring re-application of restraints. However, very pleasant this morning and excited when notified she is nearing discharge. Restraints removed ~0600 per research staff member. Tolerating TF, voiding spontaneously. Labs: No significant electrolyte abnormalities, renal function stable. No leukocytosis, hemoglobin stable. Vitals: Normotensive, HR 80s. Tmax 98.2F. Sats appropriate on RA. Intake: PO: 0 mL IV: 50 mL NGT: 665 mL Output: UOP: 1175 mL BM: Last BM documented x 2 on 08/21 VITALS & INPUT/OUTPUT Vital Signs: Vital sign ranges over the past 24 hours (retrieved 08/23/2023 at 6:33 AM): Tmax (24 hours): 98.2 F (36.8 C) Pulse Av Min: 80 Max: 89 Systolic (24hrs), Av , Min:118 , Max:154 Diastolic (24hrs), Av, Min:60, Max:75 MAP (mmHg) Av.5 mmHg Min: 76 mmHg Max: 95 mmHg Resp Av Min: 18 Max: 18 SpO2 Av % Min: 94 % Max: 97 % 24 Hour Input/Output In: 504 (6.2 mL/kg) [I.V.:50 (0 mL/kg/hr)] Out: 550 (6.8 mL/kg) [Urine:550 (0.3 mL/kg/hr)] Net: -46 Weight: 80.8 kg --- PHYSICAL EXAM --- GENERAL: Sitting up in chair, no distress. Pleasant. NEURO: GCS 14, slightly confused though conversant. No focal deficits HEENT: L-sided sutures in place at superior scalp (08/13); healing well. Corpak in place. CARDIOVASCULAR: RRR, radial/DP pulses palpable bilaterally. PULMONARY: Breathing easily on RA, no use of accessory muscles ABDOMINAL: Soft, non-tender EXTREMITIES: No obvious deformities; motor/sensation intact SKIN: Warm, dry LABORATORY RESULTS (LAST 24 HOURS) CBC/PT/INR WBC RBC Hgb Hct MCV RDW Plt PT aPTT INR 08/23/23 0259 5.8 3.18 9.5 29.0 91 14.5 268 Basic Metabolic Panel Na K Cl CO2 Gap Glu BUN Cr Ca Mg PO4 08/23/23 0259 3.5 08/23/23 0259 2.2 08/23/23 0259 136 4.1 102 26 12 104 25 0.59 9.0 ASSESSMENT & PLAN -- Diagnosis s/p Acute on chronic SDH: Subdural acute on chronic with new midline shift Acute post-op pain Acute blood loss anemia AMS Severe encephalopathy and cortical dysfunction on EEG Embolic infarcts PMHx HTN, CAD (NSTEMI, stent in RCA, takes ASA 81 mg), carotid stenosis, previous fall resulting in SDH Plan: Neurological: Acute on chronic subdural hematoma, worsening midline shift; acute post-op pain; OR 6/ for L [place] hole and embolization 08/14; later developed AMS and R-sided weakness. MRI brain showed embolic infarcts; severe encephalopathy and cortical dysfunction in EEG (no seizures) -NSGY following, recs: - Continue Keppra - No need for ASA as stroke was probably procedure related - OK for SCDs and SQH - Continue 100mg amantidine BID for neurorecovery - Supplement thiamine (completed), folate, multivitamin - Continue Tylenol 650 mg q6h - INSPECTOR CHIEF consult for repeat cog eval HEENT: - Sutures to L forehead - placed / - Peridex swish & spit BID Cardiovascular: Hx of HTN, HLD, PAD, NSTEMI with stent to RCA, carotid stenosis; remains HDS - Continue home losartan 50 mg PO daily - Continue home Lipitor 40 mg at bedtime - Continue lisinopril 5 mg daily - Holding home ASA through NSGY follow-up Respiratory: Hx of asthma, DESTINY; sats appropriate on RA - Continued home albuterol PRN GI/Diet: Corpak placed due to AMS and concern for dysphagia - will remain in place at DC with INSPECTOR CHIEF follow-up; tolerating TF regimen - Nutrition on board - Goal TF Nutren 1.5 at 45 mL/hr - FWF per provider -- hold at this time given Na 137 - Cerovite 15 mL daily - BR: Senna, Miralax, PRN Dulcolax Renal/Electrolytes: UOP appropriate, voiding via kunz catheter (replaced 08/15 after failed TOV) - Continue Cardura 4 mg daily - No indication for IVF - Daily BMP, Mg, Phos Heme: - No acute issues - Daily CBC ID: - No active issues, kaley-op Ancef completed Endocrine: - No glycemic concerns MSK: - No issues - PT/OT consulted, will DC to SNF Tubes/Lines/Drains: - PIVs - Kunz (08/16) - Corpak (08/15) Prophylaxis: - Continue SCDs, heparin 5000 units q8h - No Anti Xa in the setting of TBI Dispo: - Remains medically cleared for DC barring re-application of restraints (must be restraint free for 24 hours). Follow-ups: - Follow-up with Urology due to kunz catheter placement - Follow up with OP Neurology (Dr. Alvarado) - Follow up with NSGY (holding home ASA through follow-up with Dr. Li) - No indication for Trauma follow-up LIBBY Rodriguez Trauma and Acute Care Surgery ASH ASH Pager: [phone] For urgent issues arising after 6PM, please page [phone]. Plan discussed with Trauma Floor Attending, Dr. Pope. Images from the original note were not included. GENERAL INFORMATION TRAUMA FLOOR - STAFF NOTE Patient seen and examined on 08/22/2023 Patient Name: Carly Marcelino Admission Date: 08/12/2023 INTERVAL HISTORY/EVENTS Background: 83 year old female brought in as transfer from [facility] ED for subdural acute on chronic with new midline shift, AMS. Patient had GLF 2 weeks ago, had subdural and was admitted; no midline shift at that time, no AMS. Was doing well and discharged to rehab facility. Started on lovenox recently for DVT ppx. AMS noted on . Presented to ED today. Complaints of headache. No new injury. Hospital Course: 08/11 - admitted to TICU with acute on chronic subdural hematoma 08/12 - Labetalol started for continued htn (daughter states there is no allergy) 08/13 - OR w/NSG for left sided katty holes for evacuation of subdural hematoma 08/14 - underwent angio embolization, acute change in mental status with worsening expressive aphasia and right-sided weakness. EEG started and NCC consulted. 08/15 - EEG completed and seen by NCC. Continued to have persistent expressive aphasia and right-sided weakness. Bedside swallow was poor, so Corpek was placed. 08/17/2023 No acute events overnight, corpak placed mri completed 08/18/2023 No acute events 08/18- groin wound with drainage 24-hour Events: Patient with no acute complaints at this time, pain is well controlled, Happily confused (baseline confusion) but more alert today. Patient wants to have a BM this morning. Off restraints this AM and laying comfortably in bed. VITALS & INPUT/OUTPUT Vital Signs: Vital sign ranges over the past 24 hours (retrieved 08/22/2023 at 3:05 PM): Tmax (24 hours): 98.5 F (36.9 C) Pulse Av.7 Min: 82 Max: 90 Systolic (24hrs), Av , Min:118 , Max:133 Diastolic (24hrs), Av, Min:47, Max:63 MAP (mmHg) Av.7 mmHg Min: 64 mmHg Max: 78 mmHg Resp Av Min: 18 Max: 18 SpO2 Av % Min: 94 % Max: 96 % 24 Hour Input/Output In: 1296 (16 mL/kg) Out: 100 (1.2 mL/kg) [Urine:100 (0.1 mL/kg/hr)] Net: 1196 Weight: 80.8 kg --- PHYSICAL EXAM --- Constitutional: No acute distress. Cardiovascular: Well perfused, good peripheral pulses. Pulmonary/Chest: No increased work of breathing on RA Abdominal: Soft. Non-distended. Non-tender. +corpak Musculoskeletal: No edema. 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 with new midline shift PMHx HTN, CAD (NSTEMI, stent in RCA, takes ASA 81), carotid stenosis, previous fall resulting in Subdural hematoma Plan: Neurological: acute on chronic Subdural hematoma, worsening midline shift S/p -OR for L katty hole on tues 08/14/23, underwent embolization 08/14 Altered mental status New onset RUE and RLE weakness Embolic infarcts (MRI Brain) Severe Encephalopathy, Cortical dysfunction (EEG) EEG showed- severe encephalopathy/diffuse cortical dysfunction, focal cortical dysfunction of the left hemisphere, No epileptiform discharges or electrographic or clinical seizures MRI Brain- Few small foci of restricted diffusion are more likely because of embolic infarcts and less likely because of diffuse axonal injury. Hemorrhagic fluid collection over the left convexity because of postsurgical changes of left subdural hematoma evacuation. 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 - supplement thiamine, folate, multivitamin, TF -Tylenol 650 mg q6h - scheduled Cardiovascular: # h/o htn, hld, pulmonary artery disease, NSTEMI w/stent in R coronary artery, carotid stenosis - no acute issues - continued home losartan, lipitor - cardura 4 mg - lisinopril 5 mg Respiratory: # Asthma # DESTINY -no acute issues -continued home albuterol prn GI/Diet: -Corpak- placed due to poor mental status and concern for swallowing: d/c to SNF with corpak, have speech follow-up -Nutrition on board -Goal TF- 45 cc/hr, Impact peptide -Cerovite 15 mL daily -IV thiamine 100 mg X 5 days - refeeding concern -senna scheduled, add miralax and prn dulcolax Renal/Electrolytes: -Failed TOV 08/15, kunz replaced - She will need to be discharged with kunz and follow up outpatient with urology - Cardura (can be crushed) -HLIV -Daily BMP, Mg, Phos Heme: -no acute issues -Daily CBC ID: -no active issues, periop ancef completed Endocrine: no issues d/c accucheck MSK: -No issues -PT/OT consulted Tubes/Lines/Drains: PIVs, kunz, corpak Prophylaxis: -SCDs, -VTE PPX Heparin Q 8 hours -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 Plan discussed with attending Dr. Pope Social Work Progress Note Pt is rec for dc to SNF. Pt was accepted by [facility] Pt is still pending medical clearance. Pt will not need precert. Pt will need to be restraint free (including roll belt) 24hrs prior to dc SW will continue to follow ILIANA Ortiz Images from the original note were not included. GENERAL INFORMATION TRAUMA FLOOR - STAFF NOTE Patient seen and examined on 08/21/2023 Patient Name: Carly Marcelino Admission Date: 08/12/2023 INTERVAL HISTORY/EVENTS Background: 83 year old female brought in as transfer from [facility] ED for subdural acute on chronic with new midline shift, AMS. Patient had GLF 2 weeks ago, had subdural and was admitted; no midline shift at that time, no AMS. Was doing well and discharged to rehab facility. Started on lovenox recently for DVT ppx. AMS noted on . Presented to ED today. Complaints of headache. No new injury. Hospital Course: 08/11 - admitted to TICU with acute on chronic subdural hematoma 08/12 - Labetalol started for continued htn (daughter states there is no allergy) 08/13 - OR w/NSG for left sided katty holes for evacuation of subdural hematoma 08/14 - underwent angio embolization, acute change in mental status with worsening expressive aphasia and right-sided weakness. EEG started and NCC consulted. 08/15 - EEG completed and seen by NCC. Continued to have persistent expressive aphasia and right-sided weakness. Bedside swallow was poor, so Corpek was placed. 08/17/2023 No acute events overnight, corpak placed mri completed 08/18/2023 No acute events 08/18- groin wound with drainage 24-hour Events: Patient with no acute complaints at this time, pain is well controlled, Aox2 happily confused (baseline confusion). Patient states she feels good . Off restraints this AM and laying comfortably in bed. VITALS & INPUT/OUTPUT Vital Signs: Vital sign ranges over the past 24 hours (retrieved 08/21/2023 at 8:47 AM): Tmax (24 hours): 98.2 F (36.8 C) Pulse Av.7 Min: 60 Max: 96 Systolic (24hrs), Av , Min:111 , Max:122 Diastolic (24hrs), Av, Min:42, Max:57 MAP (mmHg) Av.7 mmHg Min: 62 mmHg Max: 74 mmHg Resp Av.3 Min: 14 Max: 16 SpO2 Av % Min: 95 % Max: 98 % 24 Hour Input/Output In: 1195 (14.8 mL/kg) [I.V.:50 (0 mL/kg/hr)] Out: 875 (10.8 mL/kg) [Urine:875 (0.5 mL/kg/hr)] Net: 320 Weight: 80.8 kg --- PHYSICAL EXAM --- Constitutional: No acute distress. Cardiovascular: Well perfused, good peripheral pulses. Pulmonary/Chest: No increased work of breathing on RA Abdominal: Soft. Non-distended. Non-tender. +corpak Musculoskeletal: No edema. 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 with new midline shift PMHx HTN, CAD (NSTEMI, stent in RCA, takes ASA 81), carotid stenosis, previous fall resulting in Subdural hematoma Plan: Neurological: acute on chronic Subdural hematoma, worsening midline shift S/p -OR for L katty hole on tu 08/14/23, underwent embolization 08/14 Altered mental status New onset RUE and RLE weakness Embolic infarcts (MRI Brain) Severe Encephalopathy, Cortical dysfunction (EEG) EEG showed- severe encephalopathy/diffuse cortical dysfunction, focal cortical dysfunction of the left hemisphere, No epileptiform discharges or electrographic or clinical seizures MRI Brain- Few small foci of restricted diffusion are more likely because of embolic infarcts and less likely because of diffuse axonal injury. Hemorrhagic fluid collection over the left convexity because of postsurgical changes of left subdural hematoma evacuation. 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 - supplement thiamine, folate, multivitamin, TF -Tylenol 650 mg q6h - scheduled Cardiovascular: # h/o htn, hld, pulmonary artery disease, NSTEMI w/stent in R coronary artery, carotid stenosis - no acute issues - continued home losartan, lipitor - cardura 4 mg - lisinopril 5 mg Respiratory: # Asthma # DESTINY -no acute issues -continued home albuterol prn GI/Diet: -Corpak- placed due to poor mental status and concern for swallowing: d/c to SNF with corpak, have speech follow-up -Nutrition on board -Goal TF- 45 cc/hr, Impact peptide -Cerovite 15 mL daily -IV thiamine 100 mg X 5 days - refeeding concern -senna scheduled, add miralax and prn dulcolax Renal/Electrolytes: -Failed TOV /, kunz replaced - She will need to be discharged with kunz and follow up outpatient with urology - Cardura (can be crushed) -HLIV -Daily BMP, Mg, Phos Heme: -no acute issues -Daily CBC ID: -no active issues, periop ancef completed Endocrine: no issues d/c accucheck MSK: -No issues -PT/OT consulted Tubes/Lines/Drains: PIVs, kunz, corpak Prophylaxis: -SCDs, -VTE PPX Heparin Q 8 hours -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 Plan discussed with attending Dr. Pope Images from the original note were not included. GENERAL INFORMATION TRAUMA FLOOR - STAFF NOTE Patient seen and examined on 08/20/2023 Patient Name: Carly Marcelino Admission Date: 08/12/2023 INTERVAL HISTORY/EVENTS Background: 83 year old female brought in as transfer from [facility] ED for subdural acute on chronic with new midline shift, AMS. Patient had GLF 2 weeks ago, had subdural and was admitted; no midline shift at that time, no AMS. Was doing well and discharged to rehab facility. Started on lovenox recently for DVT ppx. AMS noted on . Presented to ED today. Complaints of headache. No new injury. Hospital Course: 08/11 - admitted to TICU with acute on chronic subdural hematoma 08/12 - Labetalol started for continued htn (daughter states there is no allergy) 08/13 - OR w/NSG for left sided katty holes for evacuation of subdural hematoma 08/14 - underwent angio embolization, acute change in mental status with worsening expressive aphasia and right-sided weakness. EEG started and NCC consulted. 08/15 - EEG completed and seen by NCC. Continued to have persistent expressive aphasia and right-sided weakness. Bedside swallow was poor, so Corpek was placed. 08/17/2023 No acute events overnight, corpak placed mri completed 08/18/2023 No acute events 08/18- groin wound with drainage 24-hour Events: Patient with no acute complaints at this time, pain is well controlled, Aox2 (baseline confusion). Off restraints this AM and sitting in chair, comfortably. VITALS & INPUT/OUTPUT Vital Signs: Vital sign ranges over the past 24 hours (retrieved 08/20/2023 at 5:54 PM): Tmax (24 hours): 98.6 F (37 C) Pulse Av.3 Min: 89 Max: 96 Systolic (24hrs), Av , Min:116 , Max:167 Diastolic (24hrs), Av, Min:57, Max:76 MAP (mmHg) Av.7 mmHg Min: 74 mmHg Max: 95 mmHg Resp Av.7 Min: 16 Max: 19 SpO2 Av % Min: 95 % Max: 98 % 24 Hour Input/Output In: 1063 (13.2 mL/kg) Out: 1625 (20.1 mL/kg) [Urine:1625 (0.8 mL/kg/hr)] Net: -562 Weight: 80.8 kg --- PHYSICAL EXAM --- Constitutional: No acute distress. Cardiovascular: Well perfused, good peripheral pulses. Pulmonary/Chest: No increased work of breathing on RA Abdominal: Soft. Non-distended. Non-tender. Musculoskeletal: No edema. 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 with new midline shift PMHx HTN, CAD (NSTEMI, stent in RCA, takes ASA 81), carotid stenosis, previous fall resulting in Subdural hematoma Plan: Neurological: acute on chronic Subdural hematoma, worsening midline shift S/p -OR for L katty hole on [facility] 08/14/23, underwent embolization 08/14 Altered mental status New onset RUE and RLE weakness Embolic infarcts (MRI Brain) Severe Encephalopathy, Cortical dysfunction (EEG) EEG showed- severe encephalopathy/diffuse cortical dysfunction, focal cortical dysfunction of the left hemisphere, No epileptiform discharges or electrographic or clinical seizures MRI Brain- Few small foci of restricted diffusion are more likely because of embolic infarcts and less likely because of diffuse axonal injury. Hemorrhagic fluid collection over the left convexity because of postsurgical changes of left subdural hematoma evacuation. -NSGY following, recs: -Q4H neuro checks - hold aspirin - ok to resume chemoppx - NSG confirmed ok to start SQH and prefer avoiding lovenox in this patient -NCC following, recs: - cont keppra 500mg BID - cont home statin - no need for ASA as stroke were probably procedure related - can consider 100mg amantidine BID for neurorecovery, given pt's brain injury from SDH. started - supplement thiamine, folate, multivitamin, TF -Tylenol 650 mg q6h - scheduled Cardiovascular: # h/o htn, hld, pulmonary artery disease, NSTEMI w/stent in R coronary artery, carotid stenosis - no acute issues - continued home losartan, lipitor - cardura 4 mg - lisinopril 5 mg Respiratory: # Asthma # DESTINY -no acute issues -continued home albuterol prn GI/Diet: Corpak- placed due to poor mental status and concern for swallowing, will DC in place -Nutrition on board -Goal TF- 45 cc/hr, Impact peptide -Cerovite 15 mL daily -IV thiamine 100 mg X 5 days - refeeding concern -senna scheduled, add miralax and prn dulcolax Renal/Electrolytes: -Failed TOV 08/15, kunz replaced - She will need to be discharged with kunz and follow up outpatient with urology - Cardura (can be crushed) -HLIV -Daily BMP, Mg, Phos Heme: -no acute issues -Daily CBC ID: -no active issues, periop ancef completed Endocrine: no issues d/c accucheck MSK: -No issues -PT/OT consulted Tubes/Lines/Drains: PIVs, kunz, corpak Prophylaxis: -SCDs, -VTE PPX Heparin Q 8 hours -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 Plan discussed with attending Dr. Pope PT/OT in room to get back out of bed to chair. Rollbelt removed and not on pt. Social Work Progress Note Pt is rec for dc to SNF. SW sent referrals to [facility] TCU and back-up choice [facility] Pt is still pending medical clearance. Pt will not need precert. Pt will need to be restraint free (including roll belt) 24hrs prior to dc SW will continue to follow ILIANA Ortiz GENERAL INFORMATION TRAUMA FLOOR - STAFF NOTE Patient seen and examined on 08/19/2023 Patient Name: Carly Marcelino Admission Date: 08/12/2023 INTERVAL HISTORY/EVENTS Background: 83 year old female brought in as transfer from [facility] ED for subdural acute on chronic with new midline shift, AMS. Patient had GLF 2 weeks ago, had subdural and was admitted; no midline shift at that time, no AMS. Was doing well and discharged to rehab facility. Started on lovenox recently for DVT ppx. AMS noted on . Presented to ED today. Complaints of headache. No new injury. Hospital Course: 08/11 - admitted to TICU with acute on chronic subdural hematoma 08/12 - Labetalol started for continued htn (daughter states there is no allergy) 08/13 - OR w/NSG for left sided katty holes for evacuation of subdural hematoma 08/14 - underwent angio embolization, acute change in mental status with worsening expressive aphasia and right-sided weakness. EEG started and NCC consulted. 08/15 - EEG completed and seen by NCC. Continued to have persistent expressive aphasia and right-sided weakness. Bedside swallow was poor, so Corpek was placed. 08/17/2023 No acute events overnight, corpak placed mri completed 08/18/2023 No acute events 24-hour Events: Overnight patient had clear discharge from R side groin wound. On evaluation this morning the discharge has stopped, wound is clean, dry, intact. Patient with no acute complaints at this time, pain is well controlled, states her daughter is coming to see her today. VITALS & INPUT/OUTPUT Vital Signs: Vital sign ranges over the past 24 hours (retrieved 08/19/2023 at 8:20 PM): Tmax (24 hours): 98.2 F (36.8 C) Pulse Av.3 Min: 90 Max: 105 Systolic (24hrs), Av , Min:153 , Max:159 Diastolic (24hrs), Av, Min:71, Max:95 MAP (mmHg) Av mmHg Min: 93 mmHg Max: 105 mmHg Resp Av.3 Min: 16 Max: 18 SpO2 Av.7 % Min: 96 % Max: 98 % 24 Hour Input/Output In: 744.5 (9.2 mL/kg) [P.O.:100; I.V.:100 (0.1 mL/kg/hr)] Out: 2700 (33.4 mL/kg) [Urine:2700 (1.4 mL/kg/hr)] Net: Weight: 80.8 kg --- PHYSICAL EXAM --- Constitutional: No acute distress. Cardiovascular: Well perfused, good peripheral pulses. Pulmonary/Chest: No increased work of breathing on RA Abdominal: Soft. Non-distended. Non-tender. Musculoskeletal: No edema. 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 with new midline shift PMHx HTN, CAD (NSTEMI, stent in RCA, takes ASA 81), carotid stenosis, previous fall resulting in Subdural hematoma Plan: Neurological: acute on chronic Subdural hematoma, worsening midline shift S/p -OR for L katty hole on tu08/14/23, underwent embolization 08/14 Altered mental status New onset RUE and RLE weakness Embolic infarcts (MRI Brain) Severe Encephalopathy, Cortical dysfunction (EEG) Patient was noted to have AMS and decreased Right sided movements on 08/14 Hence EEG and MRI were obtained Her exam persists- currently she moans, makes eye contact, does not answer questions, follows commands intermittently and is able to move her right arm, though weakly EEG showed- severe encephalopathy/diffuse cortical dysfunction, focal cortical dysfunction of the left hemisphere, No epileptiform discharges or electrographic or clinical seizures MRI Brain- Few small foci of restricted diffusion are more likely because of embolic infarcts and less likely because of diffuse axonal injury. Hemorrhagic fluid collection over the left convexity because of postsurgical changes of left subdural hematoma evacuation. -NSGY following, recs: -Q4H neuro checks - hold aspirin - ok to resume chemoppx - NSG confirmed ok to start SQH and prefer avoiding lovenox in this patient -NCC following, recs: - cont keppra 500mg BID - cont home statin - no need for ASA as stroke were probably procedure related - can consider 100mg amantidine BID for neurorecovery, given pt's brain injury from SDH. started - supplement thiamine, folate, multivitamin, TF -Signed off -Tylenol 650 mg q6h - scheduled Cardiovascular: # h/o htn, hld, pulmonary artery disease, NSTEMI w/stent in R coronary artery, carotid stenosis - no acute issues - continued home losartan, lipitor - cardura 4 mg - lisinopril 5 mg Respiratory: # Asthma # DESTINY -no acute issues -continued home albuterol prn GI/Diet: Corpak- placed due to poor mental status and concern for swallowing -Nutrition on board -Goal TF- 45 cc/hr, Impact peptide -Cerovite 15 mL daily -IV thiamine 100 mg X 5 days - refeeding concern -senna scheduled, add miralax and prn dulcolax Renal/Electrolytes: BUN/Cr mildly elevated but down trending. 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 Waldo Burgess Teaching Physician Note: I saw and evaluated the patient. I personally obtained the kuo and critical portions of the history and physical exam. I reviewed the resident's documentation and discussed the patient with the resident. I agree with the resident's medical decision making as documented in the resident's note. Villa Burgess MD Images from the original note were not included. GENERAL INFORMATION TRAUMA FLOOR - STAFF NOTE Patient seen and examined on 08/18/2023 Patient Name: Carly Marcelino Admission Date: 08/12/2023 INTERVAL HISTORY/EVENTS Background: 83 year old female brought in as transfer from [facility] ED for subdural acute on chronic with new midline shift, AMS. Patient had GLF 2 weeks ago, had subdural and was admitted; no midline shift at that time, no AMS. Was doing well and discharged to rehab facility. Started on lovenox recently for DVT ppx. AMS noted on . Presented to ED today. Complaints of headache. No new injury. Hospital Course: 08/11 - admitted to TICU with acute on chronic subdural hematoma 08/12 - Labetalol started for continued htn (daughter states there is no allergy) 08/13 - OR w/NSG for left sided katty holes for evacuation of subdural hematoma 08/14 - underwent angio embolization, acute change in mental status with worsening expressive aphasia and right-sided weakness. EEG started and NCC consulted. 08/15 - EEG completed and seen by NCC. Continued to have persistent expressive aphasia and right-sided weakness. Bedside swallow was poor, so Corpek was placed. 08/17/2023 No acute events overnight, corpak placed mri completed 08/18/2023 No acute events 24-hour Events: This is my first time meeting this patient who is lying in bed., requires restaints at time. Vital Signs Normotensive, HR 74-87 Sats appropriate on room air Tmax 37.1 Labs Reviewed: No leukocytosis, H/H stable, BUN/Cr remains slightly elevated but stable Hypomagnesemia 1.7 Hypophosphatemia 2.0 Intake/ VITALS & INPUT/OUTPUT Vital Signs: Vital sign ranges over the past 24 hours (retrieved 08/18/2023 at 10:46 AM): Tmax (24 hours): 98.8 F (37.1 C) Pulse Av.4 Min: 70 Max: 99 Systolic (24hrs), Av , Min:102 , Max:150 Diastolic (24hrs), Av, Min:50, Max:64 MAP (mmHg) Av.5 mmHg Min: 67 mmHg Max: 86 mmHg Resp Av.8 Min: 13 Max: 18 SpO2 Av.3 % Min: 93 % Max: 97 % 24 Hour Input/Output In: 1385 (17.1 mL/kg) [I.V.:575 (0.3 mL/kg/hr)] Out: 1255 (15.5 mL/kg) [Urine:1255 (0.6 mL/kg/hr)] Net: 130 Weight: 80.8 kg --- PHYSICAL EXAM --- Constitutional: No acute distress. Cardiovascular: Regular rate and rhythm Pulmonary/Chest: No increased work of breathing on RA, CTA bilaterally Abdominal: Soft. Non-distended. Non-tender. Musculoskeletal: No edema. Neurological: GCS 13, alert, intermittent following of commands, stable right-handed coo & co founder strength weakness with some purposeful movement of her right thumb, LUE normal, LLE normal, RLE- can't lift off bed, no words- just moaning, dressing on left side of head for katty hole EEG leads on LABORATORY RESULTS (LAST 24 HOURS) CBC/PT/INR WBC RBC Hgb Hct MCV RDW Plt PT aPTT INR 08/18/23 0607 5.6 2.95 8.8 26.9 91 14.4 282 Basic Metabolic Panel Na K Cl CO2 Gap Glu BUN Cr Ca Mg PO4 08/18/23 0607 2.0 08/18/23 0607 1.7 08/18/23 0607 138 4.0 106 26 10 101 24 0.47 8.3 08/17/23 1520 138 4.2 108 26 8 117 20 0.46 8.1 Arterial Blood Gases None IMAGING RESULTS EEG: This LTM vEEG (12-26 hours), performed on a patient in the awake and confused state, was ABNORMAL. The following pertinent findings were noted: 1. Continuous slow, generalized. Delta. 80% of the record 2. Asymmetry, focal slowing left hemisphere Clinical Correlation: These findings indicate severe encephalopathy/diffuse cortical dysfunction, focal cortical dysfunction of the left hemisphere, No epileptiform discharges or electrographic or clinical seizures were captured. MRI Brain: Few small foci of restricted diffusion are more likely because of embolic infarcts and less likely because of diffuse axonal injury. Hemorrhagic fluid collection over the left convexity because of postsurgical changes of left subdural hematoma evacuation. Other findings as described above. ASSESSMENT & PLAN -- Diagnosis s/p Acute on Chronic SDH: 83 year old female brought in as transfer from [facility] ED for subdural acute on chronic with new midline shift, AMS. Patient had GLF 2 weeks ago, had subdural and was admitted; no midline shift at that time, no AMS. Was doing well and discharged to rehab facility. Started on lovenox recently for DVT ppx and ASA. AMS noted on . Presented to ED today. Complaints of headache. No new injury. PMHx HTN, CAD (NSTEMI, stent in RCA, takes ASA 81), carotid stenosis, previous fall resulting in Subdural hematoma Plan: Neurological: acute on chronic Subdural hematoma, worsening midline shift S/p -OR for L katty hole on 08/14/23, underwent embolization 08/14 Altered mental status New onset RUE and RLE weakness Embolic infarcts (MRI Brain) Severe Encephalopathy, Cortical dysfunction (EEG) Patient was noted to have AMS and decreased Right sided movements on 08/14 Hence EEG and MRI were obtained Her exam persists- currently she moans, makes eye contact, does not answer questions, follows commands intermittently and is able to move her right arm, though weakly EEG showed- severe encephalopathy/diffuse cortical dysfunction, focal cortical dysfunction of the left hemisphere, No epileptiform discharges or electrographic or clinical seizures MRI Brain- Few small foci of restricted diffusion are more likely because of embolic infarcts and less likely because of diffuse axonal injury. Hemorrhagic fluid collection over the left convexity because of postsurgical changes of left subdural hematoma evacuation. -NSGY following, recs: -Q4H neuro checks - hold aspirin - ok to resume chemoppx - NSG confirmed ok to start SQH and prefer avoiding lovenox in this patient -NCC following, recs: - cont EEG (please clarify order as patient is now on the RNF) - cont keppra 500mg IV BID. Can convert to NG. Once pt is taking PO, can switch to pt's home dose of 500mg of extended release at night (these are not able to be crushed due to the enteric coating). - cont home statin - no need for ASA as stroke were probably procedure related. - can consider 100mg amantidine BID for neurorecovery, given pt's brain injury from SDH. started - supplement thiamine, folate, multivitamin, TF -Signed off -Tylenol 650 mg q6h - scheduled Cardiovascular: # h/o htn, hld, pulmonary artery disease, NSTEMI w/stent in R coronary artery, carotid stenosis -no acute issues -continued home losartan, lipitor - Hold home Triamterene-hydrochlorothiazide - Started lisinopril 2.5 mg daily (historical med started while inpatient)- will increase to 5 mg lisinopril today) -D/c labetolol PRN- patient has not needed it since 08/14 Respiratory: # Asthma # DESTINY -no acute issues -continued home albuterol prn GI/Diet: Corpak- placed due to poor mental status and concern for swallowing -Nutrition on board -Goal TF- 45 cc/hr, Impact peptide -Cerovite 15 mL daily -IV thiamine 100 mg X 5 days - refeeding concern -senna scheduled, add miralax and prn dulcolax -Last BM was 08/12 Renal/Electrolytes: BUN/Cr mildly elevated but down trending. Hypomagnesemia and Hypophosphatemia today -Magnesium 4 gm -NA Phos 15 mmol - difficulty urinating, kunz replaced -Failed TOV 08/15 -Replace kunz - She will need to be discharged with kunz and follow up outpatient with urology - Wilner (can be crushed) -HLIV -Daily BMP, Mg, Phos Heme: -no acute issues -Daily CBC ID: -periop ancef (completed) Endocrine: no issues d/c accucheck MSK: -No issues -PT/OT consulted Tubes/Lines/Drains: PIVs, kunz (will need replaced), d/c a line, extended dwell Prophylaxis: -SCDs, -VTE PPX Heparin Q 8 hours -No Anti Xa in the setting of TBI Dispo: -Remain on RNF for continued monitoring Anticipate medical clearance in 1-3 dyas - Plan for d/c to SNF when clear LIBBY Browning TRauma/EGS ASH Pager [phone] Plan discussed with attending Dr. Waldo Burgess Images from the original note were not included. NCC CONSULT FOLLOWUP NOTE Hospital Course: 83W with h/o remote seizures, HTN, CAD (NSTEMI, stent in RCA, takes ASA 81), carotid stenosis, recently diagnosed SDH who presents with decline in mental status from OSH. Pt was diagnosed with L SDH after fall from stand a couple weeks prior to admission. This was managed nonoperatively and pt was discharged to rehab. Per family, pt was progressing well and planning for discharge home until 2 days prior to admission, when seemed more lethargic. 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 Underwent katty hole evacuation 08/13 on the L. On 08/14, went to IR for L MMA embolization. Family states that prior to her fall 2 weeks, she was independent in ADLs and lived alone. Used a walker for ambulation. Was still able to drive. Family states that pt had remote history of seizures in her 30s and was managed with neurotin. Has not a seizure in many years. Does not actively follow with a neurologist. 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 Was noted to have sharp waves on EEG during that admit. Was on keppra XL 500mg daily. Pre-admit mRS: 2: Slight disability; unable to carry out all previous activities, but able to look after own affairs without assistance Updates since last visit: MRI shows bilateral embolic appearing infarcts. Summary of Imaging & Other Pertinent Studies: EEG 08/14-08/15: IMPRESSION This LTM vEEG (12-26 hours), performed on a patient in the awake and confused state, was ABNORMAL. The following pertinent findings were noted: 1. Continuous slow, generalized. Delta. 80% of the record 2. Asymmetry, focal slowing left hemisphere OBJECTIVE: Vitals: 08/17/23 1208 BP: 137/63 Pulse: Resp: Temp: SpO2: Intake/Output Summary (Last 24 hours) at 08/17/2023 1409 Last data filed at 08/17/2023 1300 Gross per 24 hour Intake 2637.5 ml Output 940 ml Net 1697.5 ml Physical Exam: Gen: NAD CVS: RRR Neurologic exam: Mental status Drowsy, alerts to voice. Nonverbal Does not respond appropriately to questions or commands. Cranial Nerves CN II: Pupils: 3 mm OD reactive, 2 mm OS no clearly reactive to light/has corneal clouding on this side. CN III, IV, : Extraocular movements: intact CN V: Facial sensation: limited by aphasia CN VII: Facial motor function: no clear droop CN VIII: Hearing: intact to conversation CN IX, X: limited by aphasia CN XI: limited by aphasia CN XII: limited by aphasia Motor/sensory Tone: normal Spontaneous abnormal movements:none Did not cooperate with formal testing. BUE spont and antigravity, at least 4. BLE withdraws to nox stim, barely antigravity LABS: CBC (last 3 years, up to 5 values) (Last 5 results in the past 3 years) WBC RBC Hgb Hct MCV RDW Plt 08/17/23 0356 6.0 2.95 9.1 26.4 90 14.4 278 08/16/23 0053 7.4 2.97 9.0 26.9 91 14.6 300 08/15/23 0156 6.8 2.94 8.9 26.6 90 14.4 314 08/14/23 1342 9.6 29.6 08/14/23 0023 7.0 3.10 9.5 28.5 92 14.4 291 BMP (last 3 years, up to 8 values) 08/17/2023 08/16/2023 08/16/2023 08/15/2023 08/14/2023 08/14/2023 08/13/2023 08/12/2023 3:56 AM 3:37 PM 12:53 AM 1:56 AM 1:42 PM 12:23 AM 2:59 AM 7:19 PM Na 139 135 137 136 137 138 141 138 K 3.3 3.5 3.6 4.2 3.3 4.1 4.2 4.1 Cl 106 103 106 107 106 106 108 106 CO2 26 25 24 23 -- 26 26 25 Gap 10 11 11 10 -- 10 11 11 Glu 113 114 93 122 144 118 103 91 BUN 15 13 13 14 -- 19 20 21 Cr 0.47 0.48 0.48 0.57 -- 0.58 0.66 0.73 Ca 8.3 8.2 8.0 7.8 -- 8.6 9.0 8.8 eGFR 94 93 93 90 -- 89 86 81 INR (no units) Date Value 08/13/2023 1.08 Lipids (last 3 years, up to 5 values) None Lab Results Component Value Date HBA1C 4.9 05/03/2023 IMAGING: Echocardiogram date: Not Found No results found for this basename: LVEF ASSESSMENT 83W with h/o remote seizures, HTN, CAD (NSTEMI, stent in RCA, takes ASA 81), carotid stenosis, recently diagnosed SDH who presents with decline in mental status from OSH. 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 S/p katty hole evac (08/13) and L MMA embolization (08/14). Exam notable for receptive aphasia, word salad. Etiology of aphasia and confusion not clear, but likely secondary to SDH. There may be overlying delirium as well, given pt's age. Recovery may be slow, given pt's age. MRI reveals bilateral embolic appearing infarcts. These areas are small and likely related DSA, rather than clinically significant. RECS: - cont EEG - cont keppra 500mg IV BID. Can convert to NG. Once pt is taking PO, can switch to pt's home dose of 500mg of extended release at night (these are not able to be crushed due to the enteric coating). - cont home statin - no need for ASA as stroke were probably procedure related. - can consider 100mg amantidine BID for neurorecovery, given pt's brain injury from SDH. - supplement thiamine, folate, multivitamin, TF Will sign off Follow-up after discharge with the Neurology Clinic: Ronald Alvarado Visit type: 60 minute, in person or video Timing: next available Issues to address: brain injury from L SDH Call Neurology Scheduling line at [phone] to be added to the cancellation list if sooner appointment is requested. Total length of time 35 (minutes) of the encounter, exclusive of procedures. Time-based billing justifications: Reviewing (chart, labs, and other clinical notes) Obtaining history (or reviewing separately obtained history) Patient visit (including performing a medically appropriate exam) Counseling/educating the patient/family/caregiver Ordering (medications, tests, procedures - including independent interpretation of results when not reported separately) Referring/communicating with other health transitional care manager - when not reported separately Charting in [facility] Jamila Yuan MD NCC service pager (for CCP consults): [phone] Social Work ICU Note Aware pt re-admitted from [facility] skilled. SW spoke with pt's NOK/emergency contact- Hebert Alvarez [phone]. Daughter selected SNF choices: 1) [facility] 2) [facility] Referral to be [facility] when pt has medically improved to not require ICU care. No pre-cert required. No weekend DC. SCOTT or MELISSA will continue to follow. PATRICIA Valdez LISW Images from the original note were not included. [facility] NEUROSURGERY PROGRESS NOTE SUBJECTIVE: EEG negative for PLEDs/seizures. MRI completed ovn showing no obvious source for aphasia, small right stroke adjacent to central sulcus. Otherwise NAEO. OBJECTIVE: Vital sign ranges over the past 24 hours (retrieved 08/17/2023 at 6:19 AM): Tmax (24 hours): 99.5 F (37.5 C) Pulse Av.8 Min: 71 Max: 102 Systolic (24hrs), Av , Min:114 , Max:171 Diastolic (24hrs), Av, Min:54, Max:142 MAP (mmHg) Av mmHg Min: 71 mmHg Max: 150 mmHg Resp Av.7 Min: 14 Max: 22 SpO2 Av.9 % Min: 92 % Max: 100 % Intake/Output Summary (Last 24 hours) at 08/17/2023 0619 Last data filed at 08/17/2023 0500 Gross per 24 hour Intake 1891.25 ml Output 1670 ml Net 221.25 ml Fingerstick Glucose None LABS: CBC/PT/INR WBC RBC Hgb Hct MCV RDW Plt PT aPTT INR 08/17/23 0356 6.0 2.95 9.1 26.4 90 14.4 278 08/16/23 0053 7.4 2.97 9.0 26.9 91 14.6 300 08/15/23 0156 6.8 2.94 8.9 26.6 90 14.4 314 08/14/23 1342 9.6 29.6 WBC/Diff None Basic Metabolic Panel Na K Cl CO2 Gap Glu BUN Cr Ca Mg PO4 08/17/23 0356 2.2 08/17/23 0356 1.8 08/17/23 0356 139 3.3 106 26 10 113 15 0.47 8.3 08/16/23 1537 2.0 08/16/23 1537 135 3.5 103 25 11 114 13 0.48 8.2 08/16/23 0053 2.7 08/16/23 0053 1.6 08/16/23 0053 137 3.6 106 24 11 93 13 0.48 8.0 08/15/23 0156 3.7 08/15/23 0156 2.0 08/15/23 0156 136 4.2 107 23 10 122 14 0.57 7.8 08/14/23 1342 144 08/14/23 1342 137 3.3 106 Hepatic/Biliary/Pancreas None Cardiac None Arterial Blood Gases None CSF Culture None Urine Culture None Pyogen Culture None Blood Culture None Exam Awake, mumbles EOS PERRL Expressive aphasia, some receptive aphasia, nguyễn with R sided commands LUE no drift, FC 5/5 RUE poor HG, otw appears FS LLE more briskly AG RLE AG Will wiggle feet up and down to command A: 83F PMH of HTN, CAD (NSTEMI, stent in RCA, takes ASA 81), carotid stenosis brought in as transfer from OSH ED s/p AMS. CTH was shows a mixed density 2.2 cm left SDH with 1.2 cm MLS. Of note, patient had GLF 2 weeks ago, was found to have a subdural and was admitted; no midline shift at that time, no AMS. Was doing well and discharged to rehab facility. Started on lovenox recently for DVT ppx and AMS was noted to start on 08/08. Presented to ED with complaints of WISDOM. 6/ s/p L sided katty holes with SDH evac. CTH showing improved MLS and appropriate evac of SDH. 6/5 L MMA embo with javi Noyola. Waxing waning exam. EEG placed. P: -TICU -ok for Q4 neuro checks -Okay for diet from NSGY perspective -Surgical drain removed 08/14 -Continue Keppra per NCCU recs -Hold home ASA -Plts >100, INR <1.4 -Normonatremia, normothermia, euvolemia -SCDs, OK for SQH -NSGY to follow peripherally for wound checks. Defer further workup of AMS to trauma. Please call anytime with questions or concerns. Jolene Snowden MD Neurological Surgery, PGY-2 Service Pager: [phone] 08/17/2023 - 6:19 AM Teaching Physician Note: I saw and evaluated the patient. I personally obtained the kuo and critical portions of the history and physical exam. I reviewed the resident's documentation and discussed the patient with the resident. I agree with the resident's medical decision making as documented in the resident's note. Artem Li MD Images from the original note were not included. GENERAL INFORMATION TRAUMA FLOOR - STAFF NOTE Patient seen and examined on 08/17/2023 Patient Name: Carly Marcelino Admission Date: 08/12/2023 INTERVAL HISTORY/EVENTS Background: 83 year old female brought in as transfer from [facility] ED for subdural acute on chronic with new midline shift, AMS. Patient had GLF 2 weeks ago, had subdural and was admitted; no midline shift at that time, no AMS. Was doing well and discharged to rehab facility. Started on lovenox recently for DVT ppx. AMS noted on . Presented to ED today. Complaints of headache. No new injury. Hospital Course: 08/11 - admitted to TICU with acute on chronic subdural hematoma 08/12 - Labetalol started for continued htn (daughter states there is no allergy) 08/13 - OR w/NSG for left sided katty holes for evacuation of subdural hematoma 08/14 - underwent angio embolization, acute change in mental status with worsening expressive aphasia and right-sided weakness. EEG started and NCC consulted. 08/15 - EEG completed and seen by NCC. Continued to have persistent expressive aphasia and right-sided weakness. Bedside swallow was poor, so Corpek was placed. 24-hour Events: Overnight Events: No acute overnight events. Corpak placed, MRI was completed. VITALS & INPUT/OUTPUT Vital Signs: Vital sign ranges over the past 24 hours (retrieved 08/17/2023 at 6:19 AM): Tmax (24 hours): 99.5 F (37.5 C) Pulse Av.8 Min: 71 Max: 102 Systolic (24hrs), Av , Min:114 , Max:171 Diastolic (24hrs), Av, Min:54, Max:142 MAP (mmHg) Av mmHg Min: 71 mmHg Max: 150 mmHg Resp Av.7 Min: 14 Max: 22 SpO2 Av.9 % Min: 92 % Max: 100 % 24 Hour Input/Output In: 1351.3 (16.7 mL/kg) [I.V.:1163.8 (0.6 mL/kg/hr)] Out: 2125 (26.3 mL/kg) [Urine:2115 (1.1 mL/kg/hr); Drainage:10] Net: -773.8 Weight: 80.8 kg --- PHYSICAL EXAM --- Constitutional: No acute distress. Cardiovascular: Regular rate and rhythm Pulmonary/Chest: No increased work of breathing on RA, CTA bilaterally Abdominal: Soft. Non-distended. Non-tender. Musculoskeletal: No edema. Neurological: GCS 13, alert, intermittent following of commands, stable right-handed coo & co founder strength weakness with some purposeful movement of her right thumb, LUE normal, LLE normal, RLE- can't lift off bed, no words- just moaning, dressing on left side of head for katty hole EEG leads on LABORATORY RESULTS (LAST 24 HOURS) CBC/PT/INR WBC RBC Hgb Hct MCV RDW Plt PT aPTT INR 08/17/23 0356 6.0 2.95 9.1 26.4 90 14.4 278 Basic Metabolic Panel Na K Cl CO2 Gap Glu BUN Cr Ca Mg PO4 08/17/23 0356 2.2 08/17/23 0356 1.8 08/17/23 0356 139 3.3 106 26 10 113 15 0.47 8.3 08/16/23 1537 2.0 08/16/23 1537 135 3.5 103 25 11 114 13 0.48 8.2 Arterial Blood Gases None IMAGING RESULTS EEG: This LTM vEEG (12-26 hours), performed on a patient in the awake and confused state, was ABNORMAL. The following pertinent findings were noted: 1. Continuous slow, generalized. Delta. 80% of the record 2. Asymmetry, focal slowing left hemisphere Clinical Correlation: These findings indicate severe encephalopathy/diffuse cortical dysfunction, focal cortical dysfunction of the left hemisphere, No epileptiform discharges or electrographic or clinical seizures were captured. MRI Brain: Few small foci of restricted diffusion are more likely because of embolic infarcts and less likely because of diffuse axonal injury. Hemorrhagic fluid collection over the left convexity because of postsurgical changes of left subdural hematoma evacuation. Other findings as described above. ASSESSMENT & PLAN -- Diagnosis s/p Acute on Chronic SDH: 83 year old female brought in as transfer from [facility] ED for subdural acute on chronic with new midline shift, AMS. Patient had GLF 2 weeks ago, had subdural and was admitted; no midline shift at that time, no AMS. Was doing well and discharged to rehab facility. Started on lovenox recently for DVT ppx and ASA. AMS noted on . Presented to ED today. Complaints of headache. No new injury. PMHx HTN, CAD (NSTEMI, stent in RCA, takes ASA 81), carotid stenosis, previous fall resulting in Subdural hematoma Plan: Neurological: acute on chronic Subdural hematoma, worsening midline shift S/p -OR for L katty hole on 08/14/23, underwent embolization 08/14 Altered mental status New onset RUE and RLE weakness Embolic infarcts (MRI Brain) Severe Encephalopathy, Cortical dysfunction (EEG) Patient was noted to have AMS and decreased Right sided movements on 08/14 Hence EEG and MRI were obtained Her exam persists- currently she moans, makes eye contact, does not answer questions, follows commands intermittently and is able to move her right arm, though weakly EEG showed- severe encephalopathy/diffuse cortical dysfunction, focal cortical dysfunction of the left hemisphere, No epileptiform discharges or electrographic or clinical seizures MRI Brain- Few small foci of restricted diffusion are more likely because of embolic infarcts and less likely because of diffuse axonal injury. Hemorrhagic fluid collection over the left convexity because of postsurgical changes of left subdural hematoma evacuation. -NSGY following, recs: -Q4H neuro checks - hold aspirin - ok to resume chemoppx - NSG confirmed ok to start SQH and prefer avoiding lovenox in this patient -NCC following, recs: -Keppra 500 mg BID (Per NCC) - her home dose is usually 500 mg daily -Tylenol 650 mg q6h - scheduled D/c haldol Cardiovascular: # h/o htn, hld, pulmonary artery disease, NSTEMI w/stent in R coronary artery, carotid stenosis -no acute issues -continued home losartan, lipitor - Hold home Triamterene-hydrochlorothiazide - Started lisinopril 2.5 mg daily (historical med started while inpatient)- will increase to 5 mg lisinopril today) -D/c labetolol PRN- patient has not needed it since 08/14 Respiratory: # Asthma # DESTINY -no acute issues -continued home albuterol prn GI/Diet: Corpak- placed due to poor mental status and concern for swallowing -Nutrition on board -Goal TF- 45 cc/hr, Impact peptide -Cerovite 15 mL daily -IV thiamine 100 mg X 5 days - refeeding concern -senna scheduled, add miralax and prn dulcolax -Last BM was 08/12 -If does not have BM today, plan for enema tomorrow Renal/Electrolytes: #hypomagnesemia #hypophosphatemia #hypokalemia #refeeding syndrome - difficulty urinating, kunz replaced -Failed TOV 08/15 -Replace kunz - She will need to be discharged with kunz and follow up outpatient with urology - Wilner (can be crushed) -HLIV -Daily BMP, Mg, Phos - Mg replaced - Phos replaced - K replaced -PM BMP for concern for refeeding Heme: -no acute issues -Daily CBC ID: -periop ancef (completed) Endocrine: no issues d/c accucheck MSK: -No issues -PT/OT consulted Tubes/Lines/Drains: PIVs, kunz (will need replaced), d/c a line, extended dwell Prophylaxis: -SCDs, ok for SQH per NSG, start today Dispo: - OK for floor - Plan for d/c to SNF when clear Fadlullah Ba'th, MD General Surgery Resident TICU 6:19 AM 08/17/2023 Teaching Physician Note: I saw and evaluated the patient. I personally obtained the kuo and critical portions of the history and physical exam. I reviewed the resident's documentation and discussed the patient with the resident. I agree with the resident's medical decision making as documented in the resident's note. Sammie Barriga MD Critical care time was provided for 35 mins. The time involved in the performance of this care was exclusive of separately billable procedures, teaching time and treating other patients. This time was spent personally by the attending physician for the following activities: examination of patient, ordering and/or performing treatments, ordering and reviewing laboratory and radiographic studies, and if applicable, ventilatory management and blood gas interpretation. Critical care was necessary because of an illness or injury that acutely impaired one or more vital organs systems such that there was a high probability of imminent or life threatening deterioration in the patient s condition. The following organ systems are involved: neurological, electrolytes, HTN(baseline) Primary team was aware and concurred with the test or procedure prior to transport: Yes Transport equipment and supplies were maintained throughout the transport: Yes Evaluation of patient status was completed following patient transport and upon return to unit: Yes Images from the original note were not included. NCC CONSULT FOLLOWUP NOTE Hospital Course: 83W with h/o remote seizures, HTN, CAD (NSTEMI, stent in RCA, takes ASA 81), carotid stenosis, recently diagnosed SDH who presents with decline in mental status from OSH. Pt was diagnosed with L SDH after fall from stand a couple weeks prior to admission. This was managed nonoperatively and pt was discharged to rehab. Per family, pt was progressing well and planning for discharge home until 2 days prior to admission, when seemed more lethargic. 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 Underwent katty hole evacuation 08/13 on the L. On 6/5, went to IR for L MMA embolization. Family states that prior to her fall 2 weeks, she was independent in ADLs and lived alone. Used a walker for ambulation. Was still able to drive. Family states that pt had remote history of seizures in her 30s and was managed with neurotin. Has not a seizure in many years. Does not actively follow with a neurologist. 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 Was noted to have sharp waves on EEG during that admit. Was on keppra XL 500mg daily. Pre-admit mRS: 2: Slight disability; unable to carry out all previous activities, but able to look after own affairs without assistance Updates since last visit: NAESunny Summary of Imaging & Other Pertinent Studies: EEG 08/14-08/15: IMPRESSION This LTM vEEG (12-26 hours), performed on a patient in the awake and confused state, was ABNORMAL. The following pertinent findings were noted: 1. Continuous slow, generalized. Delta. 80% of the record 2. Asymmetry, focal slowing left hemisphere OBJECTIVE: Vitals: 08/16/23 1500 BP: 166/142 Pulse: 94 Resp: 17 Temp: SpO2: 94% Intake/Output Summary (Last 24 hours) at 08/16/2023 1544 Last data filed at 08/16/2023 1500 Gross per 24 hour Intake 571.25 ml Output 2485 ml Net -1913.75 ml Physical Exam: Gen: NAD CVS: RRR Neurologic exam: Mental status Drowsy, alerts to voice. Mostly nonsensical speech, only OK was intelligible. Does not respond appropriately to questions or commands. Cranial Nerves CN II: Pupils: 3 mm OD reactive, 2 mm OS no clearly reactive to light/has corneal clouding on this side. CN III, IV, : Extraocular movements: intact CN V: Facial sensation: limited by aphasia CN VII: Facial motor function: no clear droop CN VIII: Hearing: intact to conversation CN IX, X: limited by aphasia CN XI: limited by aphasia CN XII: limited by aphasia Motor/sensory Tone: normal Spontaneous abnormal movements:none Did not cooperate with formal testing. BUE spont and antigravity, at least 4. BLE withdraws to nox stim, barely antigravity LABS: CBC (last 3 years, up to 5 values) (Last 5 results in the past 3 years) WBC RBC Hgb Hct MCV RDW Plt 08/16/23 0053 7.4 2.97 9.0 26.9 91 14.6 300 08/15/23 0156 6.8 2.94 8.9 26.6 90 14.4 314 08/14/23 1342 9.6 29.6 08/14/23 0023 7.0 3.10 9.5 28.5 92 14.4 291 08/13/23 0259 6.9 3.28 10.0 30.0 92 14.6 311 BMP (last 3 years, up to 8 values) 08/16/2023 08/15/2023 08/14/2023 08/14/2023 08/13/2023 08/12/2023 08/03/2023 08/02/2023 12:53 AM 1:56 AM 1:42 PM 12:23 AM 2:59 AM 7:19 PM 12:13 AM 5:57 AM Na 137 136 137 138 141 138 136 136 K 3.6 4.2 3.3 4.1 4.2 4.1 4.3 4.2 Cl 106 107 106 106 108 106 102 102 CO2 24 23 -- 26 26 25 27 26 Gap 11 10 -- 10 11 11 11 12 Glu 93 122 144 118 103 91 100 104 BUN 13 14 -- 19 20 21 18 17 Cr 0.48 0.57 -- 0.58 0.66 0.73 0.71 0.73 Ca 8.0 7.8 -- 8.6 9.0 8.8 8.3 8.2 eGFR 93 90 -- 89 86 81 84 81 INR (no units) Date Value 08/13/2023 1.08 Lipids (last 3 years, up to 5 values) None Lab Results Component Value Date HBA1C 4.9 05/03/2023 IMAGING: Echocardiogram date: Not Found No results found for this basename: LVEF ASSESSMENT 83W with h/o remote seizures, HTN, CAD (NSTEMI, stent in RCA, takes ASA 81), carotid stenosis, recently diagnosed SDH who presents with decline in mental status from OSH. 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 S/p katty hole evac (08/13) and L MMA embolization (08/14). Exam notable for receptive aphasia, word salad. Etiology of aphasia and confusion not clear. No evidence of seizure. Likely secondary to structural injury from SDH. There may be overlying delirium as well, given pt's age. RECS: - cont EEG - cont keppra 500mg IV BID - MRI brain without contrast to evaluate for stroke - supplement thiamine, folate, multivitamin - corpak to initiate nutrition (not clear that pt has had much intake over the last 5 days), and continue medications Total length of time 35 (minutes) of the encounter, exclusive of procedures. Time-based billing justifications: Reviewing (chart, labs, and other clinical notes) Obtaining history (or reviewing separately obtained history) Patient visit (including performing a medically appropriate exam) Counseling/educating the patient/family/caregiver Ordering (medications, tests, procedures - including independent interpretation of results when not reported separately) Referring/communicating with other health transitional care manager - when not reported separately Charting in [facility] Jamila Yuan MD [facility] service pager (for CCP consults): [phone] Images from the original note were not included. GENERAL INFORMATION TRAUMA FLOOR - STAFF NOTE Patient seen and examined on 08/16/2023 Patient Name: Carly Marcelino Admission Date: 08/12/2023 INTERVAL HISTORY/EVENTS Background: 83 year old female brought in as transfer from OSH ED for subdural acute on chronic with new midline shift, AMS. Patient had GLF 2 weeks ago, had subdural and was admitted; no midline shift at that time, no AMS. Was doing well and discharged to rehab facility. Started on lovenox recently for DVT ppx. AMS noted on . Presented to ED today. Complaints of headache. No new injury. Hospital Course: 08/11 - admitted to TICU with acute on chronic subdural hematoma 08/12 - Labetalol started for continued htn (daughter states there is no allergy) 08/13 - OR w/NSG for left sided katty holes for evacuation of subdural hematoma 08/14 - underwent angio embolization, acute change in mental status with worsening expressive aphasia and right-sided weakness. EEG started and NCC consulted. 24-hour Events: Overnight Events: No acute overnight events. Angio performed yesterday Persistent expressive aphasia and right-sided weakness EEG initiated NCC consulted Bedside swallow performed - poor VITALS & INPUT/OUTPUT Vital Signs: Vital sign ranges over the past 24 hours (retrieved 08/16/2023 at 8:38 AM): Tmax (24 hours): 99.3 F (37.4 C) Pulse Av.4 Min: 68 Max: 90 Systolic (24hrs), Av , Min:124 , Max:181 Diastolic (24hrs), Av, Min:56, Max:115 MAP (mmHg) Av.4 mmHg Min: 75 mmHg Max: 119 mmHg Resp Av.3 Min: 8 Max: 26 SpO2 Av.8 % Min: 87 % Max: 100 % 24 Hour Input/Output In: 675 (8.4 mL/kg) [I.V.:675 (0.3 mL/kg/hr)] Out: 2430 (30.1 mL/kg) [Urine:2410 (1.2 mL/kg/hr); Drainage:20] Net: -3944 Weight: 80.8 kg --- PHYSICAL EXAM --- Constitutional: No acute distress. Currently asleep but was very agitated earlier due to corpak placement Cardiovascular: Regular rate and rhythm Pulmonary/Chest: No increased work of breathing on RA Abdominal: Soft. Non-distended. Non-tender. Musculoskeletal: No edema. Neurological: GCS 14, alert, oriented to self, worsening right-handed coo & co founder strength weakness but able to lift it up, LUE normal, LLE normal, RLE- can't lift off bed, no words- just moaning , dressing on left side of head for katty hole EEG leads on LABORATORY RESULTS (LAST 24 HOURS) CBC/PT/INR WBC RBC Hgb Hct MCV RDW Plt PT aPTT INR 08/16/23 0053 7.4 2.97 9.0 26.9 91 14.6 300 Basic Metabolic Panel Na K Cl CO2 Gap Glu BUN Cr Ca Mg PO4 08/16/23 0053 2.7 08/16/23 0053 1.6 08/16/23 0053 137 3.6 106 24 11 93 13 0.48 8.0 Arterial Blood Gases None IMAGING RESULTS (PERSONALLY REVIEWED) CXR: clear, perihilar bibasilar atelectasis, no effusions or ptx KUB: Corpak in good position ASSESSMENT & PLAN -- Diagnosis s/p Acute on Chronic SDH: 83 year old female brought in as transfer from OSH ED for subdural acute on chronic with new midline shift, AMS. Patient had GLF 2 weeks ago, had subdural and was admitted; no midline shift at that time, no AMS. Was doing well and discharged to rehab facility. Started on lovenox recently for DVT ppx and ASA. AMS noted on . Presented to ED today. Complaints of headache. No new injury. PMHx HTN, CAD (NSTEMI, stent in RCA, takes ASA 81), carotid stenosis, previous fall resulting in Subdural hematoma Plan: Neurological: acute on chronic Subdural hematoma, worsening midline shift S/p katty hole, MMA embolization Altered mental status New onset RUE and RLE weakness -NSGY following, recs: -Q1H neurochecks, -OR for L katty hole on 08/14/23, underwent embolization 08/14 -Continue home keppra dose -SCDs only, no AC/antiplt - NCC on board for EEG 2/2 persistent confusion and seizure hx - MRI brain once EEG completed for worsening mental status -Tylenol prn for headache Patient given one dose of 5 mg haldol this am for agitation while corpak was being placed Cardiovascular: # h/o htn, hld, pulmonary artery disease, NSTEMI w/stent in R coronary artery, carotid stenosis -no acute issues -Prn labetalol - last got it at 4 pm yesterday -continued home losartan, lipitor - Hold home Triamterene-hydrochlorothiazide - Started lisinopril 2.5 mg daily (historical med started while inpatient)- will increase to 5 mg lisinopril today Respiratory: # Asthma # DESTINY -no acute issues -continued home albuterol prn GI/Diet: Corpak- placed this am due to poor mental status and concern for swallowing -TF started -Nutrition on board -Goal TF- 45 cc/hr -senna scheduled, add miralax and prn dulcolax Renal/Electrolytes: #hypomagnesemia - difficulty urinating, kunz replaced - Trial of void 08/15 - Start Cardura (can be crushed) -NS 75 cc/h until TF at goal -Daily BMP, Mg, Phos - Mg replaced -20 Kcl Heme: -no acute issues -Daily CBC ID: -periop ancef (completed) Endocrine: d/c accucheck - No issues MSK: -No issues -PT/OT consulted Tubes/Lines/Drains: PIVs, kunz- d/c today , Skull DONAL removed Prophylaxis: -SCDs, hold SQH through 08/16, restart 08/17 Dispo: -TICU for Q1h neurochecks Ronnie Espinoza'MD [place] General Surgery Resident TICU 8:38 AM 08/16/2023 Teaching Physician Note: I saw and evaluated the patient. I personally obtained the kuo and critical portions of the history and physical exam. I reviewed the resident's documentation and discussed the patient with the resident. I agree with the resident's medical decision making as documented in the resident's note. Sammie Barriga MD Critical care time was provided for 35 mins. The time involved in the performance of this care was exclusive of separately billable procedures, teaching time and treating other patients. This time was spent personally by the attending physician for the following activities: examination of patient, ordering and/or performing treatments, ordering and reviewing laboratory and radiographic studies, and if applicable, ventilatory management and blood gas interpretation. Critical care was necessary because of an illness or injury that acutely impaired one or more vital organs systems such that there was a high probability of imminent or life threatening deterioration in the patient s condition. The following organ systems are involved: neurological- significant mental status changes, agitation, h/o HTN Images from the original note were not included. [facility] NEUROSURGERY PROGRESS NOTE SUBJECTIVE: PAD1 L MMA embo, EEG in process OBJECTIVE: Vital sign ranges over the past 24 hours (retrieved 08/16/2023 at 5:20 AM): Tmax (24 hours): 99.3 F (37.4 C) Pulse Av Min: 68 Max: 92 Systolic (24hrs), Av , Min:124 , Max:181 Diastolic (24hrs), Av, Min:56, Max:115 MAP (mmHg) Av mmHg Min: 75 mmHg Max: 119 mmHg Resp Av.3 Min: 8 Max: 23 SpO2 Av.9 % Min: 87 % Max: 100 % Intake/Output Summary (Last 24 hours) at 08/16/2023 0520 Last data filed at 08/16/2023 0400 Gross per 24 hour Intake 875 ml Output 2460 ml Net -1585 ml Fingerstick Glucose None LABS: CBC/PT/INR WBC RBC Hgb Hct MCV RDW Plt PT aPTT INR 08/16/23 0053 7.4 2.97 9.0 26.9 91 14.6 300 08/15/23 0156 6.8 2.94 8.9 26.6 90 14.4 314 08/14/23 1342 9.6 29.6 08/14/23 0023 7.0 3.10 9.5 28.5 92 14.4 291 08/13/23 1449 <21 08/13/23 1449 1.08 WBC/Diff Neutro% Segs% Bands% Lymphs% Monos% Eos% Basos% 08/14/23 0023 79.8 10.4 7.6 1.5 0.7 Basic Metabolic Panel Na K Cl CO2 Gap Glu BUN Cr Ca Mg PO4 08/16/23 0053 2.7 08/16/23 0053 1.6 08/16/23 0053 137 3.6 106 24 11 93 13 0.48 8.0 08/15/23 0156 3.7 08/15/23 0156 2.0 08/15/23 0156 136 4.2 107 23 10 122 14 0.57 7.8 08/14/23 1342 144 08/14/23 1342 137 3.3 106 08/14/23 0023 1.8 08/14/23 0023 138 4.1 106 26 10 118 19 0.58 8.6 Hepatic/Biliary/Pancreas None Cardiac None Arterial Blood Gases None CSF Culture None Urine Culture None Pyogen Culture None Blood Culture None Exam Awake, only states OK , mumbles EOS PERRL Expressive aphasia, some receptive aphasia, nguyễn with R sided commands LUE no drift, appears FS RUE poor HG, otw appears FS LLE more briskly AG RLE AG Will wiggle feet up and down to toe wiggle command A: 83F PMH of HTN, CAD (NSTEMI, stent in RCA, takes ASA 81), carotid stenosis brought in as transfer from OSH ED s/p AMS. CTH was shows a mixed density 2.2 cm left SDH with 1.2 cm MLS. Of note, patient had GLF 2 weeks ago, was found to have a subdural and was admitted; no midline shift at that time, no AMS. Was doing well and discharged to rehab facility. Started on lovenox recently for DVT ppx and AMS was noted to start on 08/08. Presented to ED with complaints of WISDOM. 08/13 s/p L sided katty holes with SDH evac. CTH showing improved MLS and appropriate evac of SDH. 6/ L MMA embo with Dr. Casarez, uncomplicated. Waxing waning exam. EEG placed. P: -TICU -ok for Q4 neuro checks -f/u EEG - once EEG off, please obtain MRI wo head -Okay for diet from NSGY perspective -will remove drain today -Continue Keppra per NCCU recs -SBP <170 per trauma guidelines -Hold home ASA -Hold all antiplatelets/anticoagulants -Plts >100, INR <1.4 -Normonatremia, normothermia, euvolemia -SCDs only at this time for DVT prophylaxis. Hold SQH thru POD3 (08/16) Please call anytime with questions or concerns. Toshia Gil PA-C Neurosurgery Service Pager: [phone] 08/16/2023 - 7:41 AM Images from the original note were not included. [facility] NEUROSURGERY POST ANGIO CHECK NOTE SUBJECTIVE: Now s/p L MMA embo OBJECTIVE: Vital sign ranges over the past 24 hours (retrieved 08/15/2023 at 4:38 PM): Tmax (24 hours): 99.1 F (37.3 C) Pulse Av.2 Min: 68 Max: 92 Systolic (24hrs), Av , Min:122 , Max:181 Diastolic (24hrs), Av, Min:59, Max:105 MAP (mmHg) Av mmHg Min: 83 mmHg Max: 112 mmHg Resp Av.3 Min: 12 Max: 23 SpO2 Av.7 % Min: 87 % Max: 100 % Intake/Output Summary (Last 24 hours) at 08/15/2023 1638 Last data filed at 08/15/2023 1622 Gross per 24 hour Intake 1850 ml Output 1815 ml Net 35 ml Fingerstick Glucose None LABS: CBC/PT/INR WBC RBC Hgb Hct MCV RDW Plt PT aPTT INR 08/15/23 0156 6.8 2.94 8.9 26.6 90 14.4 314 08/14/23 1342 9.6 29.6 06/04/24 0023 7.0 3.10 9.5 28.5 92 14.4 291 08/13/23 1449 <21 08/13/23 1449 1.08 08/13/23 0259 6.9 3.28 10.0 30.0 92 14.6 311 08/12/231918 9.0 3.23 10.0 29.5 91 14.2 272 08/12/231918 -- Comment: CLOT This is a corrected result. Previous result on 08/12/2023 at 2020 EDT was 0.96 [C] [C] - Corrected Result WBC/Diff Neutro% Segs% Bands% Lymphs% Monos% Eos% Basos% 08/14/2322 79.8 10.4 7.6 1.5 0.7 08/12/231918 80.6 10.6 6.2 2.2 0.5 Basic Metabolic Panel Na K Cl CO2 Gap Glu BUN Cr Ca Mg PO4 08/15/23 0156 3.7 08/15/23 0156 2.0 08/15/23 015 136 4.2 107 23 10 122 14 0.57 7.8 08/14/23 1342 144 08/14/23 1342 137 3.3 106 08/14/23 0023 1.8 08/14/23 0023 138 4.1 106 26 10 118 19 0.58 8.6 08/13/23 0259 3.0 08/13/23 0259 2.0 08/13/23258 141 4.2 108 26 11 103 20 0.66 9.0 08/12/231918 138 4.1 106 25 11 91 21 0.73 8.8 Hepatic/Biliary/Pancreas None Cardiac None Arterial Blood Gases None CSF Culture None Urine Culture None Pyogen Culture None Blood Culture None Exam Awake, more attentive appearing on exam in comparision to this AM EOS PERRL Expressive aphasia, some receptive aphasia, nguyễn with R sided commands LUE no drift, appears FS RUE poor HG, otw appears FS LLE more briskly AG RLE AG Will wiggle feet up and down to toe wiggle command A: 83F PMH of HTN, CAD (NSTEMI, stent in RCA, takes ASA 81), carotid stenosis brought in as transfer from OSH ED s/p AMS. CTH was shows a mixed density 2.2 cm left SDH with 1.2 cm MLS. Of note, patient had GLF 2 weeks ago, was found to have a subdural and was admitted; no midline shift at that time, no AMS. Was doing well and discharged to rehab facility. Started on lovenox recently for DVT ppx and AMS was noted to start on 08/08. Presented to ED with complaints of WISDOM. 6/4 s/p L sided katty holes with SDH evac. CTH showing improved MLS and appropriate evac of SDH. 6/5 L MMA embo with Dr. Casarez, uncomplicated. Waxing waning exam. EEG placed. P: -TICU -ok for Q2 neuro checks with a Q4 sleep holiday -HOB flat per post angio protocol -f/u EEG -Okay for diet from NSGY perspective -Continue home Keppra -SBP <170 per trauma guidelines -Hold home ASA -Hold all antiplatelets/anticoagulants -Plts >100, INR <1.4 -Normonatremia, normothermia, euvolemia -SCDs only at this time for DVT prophylaxis. Hold SQH thru POD3 (08/16) -Will continue to follow Please call anytime with questions or concerns. Toshia Gil PA-C Neurosurgery Service Pager: [phone] 08/15/2023 - 4:43 PM SW ICU Assessment Referral SW spoke with pt's dtr/YOMAIRA Alvarez [phone] Carly Marcelino is a 83 year old female brought in as transfer from OSH ED for subdural acute on chronic with new midline shift, AMS. Patient had GLF 2 weeks ago, had subdural and was admitted; no midline shift at that time, no AMS. Was doing well and discharged to rehab facility. Started on lovenox recently for DVT ppx. AMS noted on . Presented to ED today. Complaints of headache. No new injury. Living Situation Pt lives with dtr Family/Next of Kin Pt is and has no other living children . 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 No SDOH concerns Advanced Directives None Social Work Needs/Indicators SW will assist in dc planning Discharge Planning Pt is rec for dc to SNF when medically ready SCOTT/MELISSA aware that patient meets criteria for SNF. Called pt's dtr to discuss dispo. She was open and agreeable to SNF placement. CM/SCOTT provided pt the quality and resource use measure data from available post-acute (PAC) providers, that best align with the patient's treatment goals and preferences from the medicare.gov compare site for SNF. [place] of Choice was provided to the patient/patient district representative. SCOTT/MELISSA will follow up for choices. SW will continue to follow ILIANA Ortiz Patient transported back to unit from IR after procedure with RN and PCNA without complications Patient transported to IR for a procedure with RN and PCNA without complication. Images from the original note were not included. GENERAL INFORMATION TRAUMA FLOOR - STAFF NOTE Patient seen and examined on 08/15/2023 Patient Name: Carly Marcelino Admission Date: 08/12/2023 INTERVAL HISTORY/EVENTS Background: 83 year old female brought in as transfer from [facility] ED for subdural acute on chronic with new midline shift, AMS. Patient had GLF 2 weeks ago, had subdural and was admitted; no midline shift at that time, no AMS. Was doing well and discharged to rehab facility. Started on lovenox recently for DVT ppx. AMS noted on . Presented to ED today. Complaints of headache. No new injury. Hospital Course: 08/11 - admitted to TICU with acute on chronic subdural hematoma 08/12 - Labetalol started for continued htn (daughter states there is no allergy) 08/13 - OR w/NSG for left sided katty holes for evacuation of subdural hematoma 24-hour Events: Overnight Events: No acute overnight events. Katty hole performed by NSG yesterday Worsening right-sided weakness VITALS & INPUT/OUTPUT Vital Signs: Vital sign ranges over the past 24 hours (retrieved 08/15/2023 at 9:01 AM): Tmax (24 hours): 99.1 F (37.3 C) Pulse Av.2 Min: 70 Max: 92 Systolic (24hrs), Av , Min:122 , Max:168 Diastolic (24hrs), Av, Min:65, Max:105 MAP (mmHg) Av.7 mmHg Min: 84 mmHg Max: 112 mmHg Resp Av.4 Min: 13 Max: 23 SpO2 Av.8 % Min: 92 % Max: 100 % 24 Hour Input/Output In: 3150 (39 mL/kg) [I.V.:3150 (1.6 mL/kg/hr)] Out: 1235 (15.3 mL/kg) [Urine:1185 (0.6 mL/kg/hr); Drainage:50] Net: 1914 Weight: 80.8 kg --- PHYSICAL EXAM --- Constitutional: No acute distress. Cardiovascular: Regular rate and rhythm Pulmonary/Chest: No increased work of breathing on RA Abdominal: Soft. Non-distended. Non-tender. Musculoskeletal: No edema. Neurological: GCS 14, alert, oriented to self, worsening right-handed coo & co founder strength weakness, dressing on left side of head for katty hole LABORATORY RESULTS (LAST 24 HOURS) CBC/PT/INR WBC RBC Hgb Hct MCV RDW Plt PT aPTT INR 08/15/23 0156 6.8 2.94 8.9 26.6 90 14.4 314 08/14/23 1342 9.6 29.6 Basic Metabolic Panel Na K Cl CO2 Gap Glu BUN Cr Ca Mg PO4 08/15/23 0156 3.7 08/15/23 0156 2.0 08/15/23 0156 136 4.2 107 23 10 122 14 0.57 7.8 08/14/23 1342 144 08/14/23 1342 137 3.3 106 Arterial Blood Gases T Site Mode LPM FIO2 pH pCO2 pO2 Sat Base Ex HCO3- A-a 08/14/23 1342 23 08/14/23 1342 7.391 38.9 227 99.2 -1.1 23 IMAGING RESULTS (PERSONALLY REVIEWED) No new imaging today ASSESSMENT & PLAN -- Diagnosis s/p Acute on Chronic SDH: 83 year old female brought in as transfer from OSH ED for subdural acute on chronic with new midline shift, AMS. Patient had GLF 2 weeks ago, had subdural and was admitted; no midline shift at that time, no AMS. Was doing well and discharged to rehab facility. Started on lovenox recently for DVT ppx and ASA. AMS noted on . Presented to ED today. Complaints of headache. No new injury. PMHx HTN, CAD (NSTEMI, stent in RCA, takes ASA 81), carotid stenosis, previous fall resulting in Subdural hematoma Plan: Neurological: acute on chronic Subdural hematoma, worsening midline shift -NSGY following, recs: -Q1H neurochecks, -OR for L katty hole on 08/14/23, will get embolization 08/14 -Continue home keppra dose -SBP<170, plt>100, INR<1.4 -normonatremia, normothermia, euvolemia -SCDs only, no AC/antiplt - Requesting consult to NCC for EEG 2/2 persistent confusion and seizure hx -tylenol prn for headache Cardiovascular: # h/o htn, hld, pulmonary artery disease, NSTEMI w/stent in R coronary artery, carotid stenosis -no acute issues -Prn labetalol -continued home losartan, lipitor - Hold home Triamterene-hydrochlorothiazide - Will start lisinopril 2.5 mg daily (will start while inpatient since she was on in the past) Respiratory: # Asthma # DESTINY -no acute issues -continued home albuterol prn GI/Diet: -NPO for NSG procedure today, ok for diet after -senna scheduled and prn dulcolax Renal/Electrolytes: - difficulty urinating, kunz replaced - Trial of void 08/15 - Stop flomax -hep lock after OR -Daily BMP, Mg, Phos Heme: -no acute issues -Daily CBC ID: -periop ancef (completed) Endocrine: d/c accucheck - No issues MSK: -No issues Tubes/Lines/Drains: PIVs, Skull DONAL Prophylaxis: -SCDs, hold SH& through 08/16, restart 08/17 Dispo: -LINDA Jesus MD General Surgery Resident LINDA 9:01 AM 08/15/2023 Teaching Physician Note: I saw and evaluated the patient. I personally obtained the kuo and critical portions of the history and physical exam. I reviewed the resident's documentation and discussed the patient with the resident. I agree with the resident's medical decision making as documented in the resident's note. Sammie Barriga MD Critical care time was provided for 35 mins. The time involved in the performance of this care was exclusive of separately billable procedures, teaching time and treating other patients. This time was spent personally by the attending physician for the following activities: examination of patient, ordering and/or performing treatments, ordering and reviewing laboratory and radiographic studies, and if applicable, ventilatory management and blood gas interpretation. Critical care was necessary because of an illness or injury that acutely impaired one or more vital organs systems such that there was a high probability of imminent or life threatening deterioration in the patient s condition. The following organ systems are involved: neurological, cardiovascular (HTN at baseline, unrelated to patients acute problem) Patient has right sided weakness with arm and leg drift. 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 Speech has worsened. TICU team notified Images from the original note were not included. [facility] NEUROSURGERY DAILY PROGRESS NOTE SUBJECTIVE: No acute events overnight. POD1 L katty holes for SDH evac Post-op CTH with improvement in MLS OBJECTIVE: Vitals: Vital sign ranges over the past 24 hours (retrieved 08/15/2023 at 6:29 AM): Tmax (24 hours): 99 F (37.2 C) Pulse Av.7 Min: 67 Max: 92 Systolic (24hrs), Av , Min:122 , Max:179 Diastolic (24hrs), Av, Min:65, Max:105 MAP (mmHg) Av.5 mmHg Min: 84 mmHg Max: 112 mmHg Resp Av.3 Min: 13 Max: 23 SpO2 Av.3 % Min: 92 % Max: 100 % In: 2997.5 (37.1 mL/kg) [I.V.:2997.5 (1.5 mL/kg/hr)] Out: 1770 (21.9 mL/kg) [Urine:1740 (0.9 mL/kg/hr); Drainage:30] Net: 1227.5 Weight: 80.8 kg Medications: losartan 50 mg Daily levETIRAcetam 500 mg 2x Daily Followed by [START ON 08/21/2023] levETIRAcetam 500 mg At Bedtime tamsulosin 0.4 mg Daily atorvastatin 40 mg At Bedtime senna 8.6 mg At Bedtime sodium chloride 75 mL/hr at 08/15/23 0600 labetalol 10 mg Q6H PRN albuterol 2 Puff Q4H PRN acetaminophen 650 mg Q4H PRN bisacodyl 10 mg Daily PRN Labs: CBC/PT/INR WBC RBC Hgb Hct MCV RDW Plt PT aPTT INR 08/15/23 0156 6.8 2.94 8.9 26.6 90 14.4 314 08/14/23 1342 9.6 29.6 08/14/23 0023 7.0 3.10 9.5 28.5 92 14.4 291 08/13/23 1449 <21 08/13/23 1449 1.08 08/13/23 0259 6.9 3.28 10.0 30.0 92 14.6 311 08/12/23 191 9.0 3.23 10.0 29.5 91 14.2 272 08/12/23 191 -- Comment: CLOT This is a corrected result. Previous result on 08/12/2023 at 2020 EDT was 0.96 [C] [C] - Corrected Result WBC/Diff Neutro% Segs% Bands% Lymphs% Monos% Eos% Basos% 08/14/23 0023 79.8 10.4 7.6 1.5 0.7 08/12/231918 80.6 10.6 6.2 2.2 0.5 Basic Metabolic Panel Na K Cl CO2 Gap Glu BUN Cr Ca Mg PO4 08/15/23 0156 3.7 08/15/23 0156 2.0 08/15/23 0156 136 4.2 107 23 10 122 14 0.57 7.8 08/14/23 1342 144 08/14/23 1342 137 3.3 106 08/14/23 0023 1.8 08/14/23 0023 138 4.1 106 26 10 118 19 0.58 8.6 08/13/23 0259 3.0 08/13/23 0259 2.0 08/13/23 0259 141 4.2 108 26 11 103 20 0.66 9.0 08/12/23 1919 138 4.1 106 25 11 91 21 0.73 8.8 Hepatic/Biliary/Pancreas None Cardiac None Arterial Blood Gases T Site Mode LPM FIO2 pH pCO2 pO2 Sat Base Ex HCO3- A-a 08/14/23 1342 23 08/14/23 1342 7.391 38.9 227 99.2 -1.1 23 Fingerstick Glucose None CSF Culture None Urine Culture None Pyogen Culture None Blood Culture None Sputum Culture None Physical Exam: A&Ox1-2 with nods PERRL EOMI FS TM BUE: 5/, no drift BLE: wiggles toes, no antigravity movement today A: Pt is a 83 year old year old female PMH of HTN, CAD (NSTEMI, stent in RCA, takes ASA 81), carotid stenosis brought in as transfer from OSH ED s/p AMS. Upon arrival to OSH a CTH was conducted which shows a mixed density left hemispheric subdural hematoma measuring up to 2.2 cm at greatest thickness with increased mass effect upon the underlying brain parenchyma and resultant 1.2 cm left to right midline shift for which NSGY was consulted. Of note, patient had GLF 2 weeks ago, was found to have a subdural and was admitted; no midline shift at that time, no AMS. Was doing well and discharged to rehab facility. Started on lovenox recently for DVT ppx and AMS was noted to start on . Presented to ED today with complaints of WISDOM. NSGY consulted for further recs and management. P: -TICU -ok for Q2 neuro checks -plan for L MMA embolization today -recommend EEG following embolization given persistent confusion, seizure history -Okay for diet from NSGY perspective -Continue home Keppra -SBP <170 per trauma guidelines -Hold home ASA -Hold all antiplatelets/anticoagulants -Plts >100, INR <1.4 -Normonatremia, normothermia, euvolemia -SCDs only at this time for DVT prophylaxis. Hold SQH thru POD3 (08/16) Jolene Snowden MD Neurological Surgery, PGY-2 Service Pager: [phone] 08/15/2023 - 6:30 AM Images from the original note were not included. GENERAL INFORMATION TRAUMA FLOOR - STAFF NOTE Patient seen and examined on 08/14/2023 Patient Name: Carly Marcelino Admission Date: 08/12/2023 INTERVAL HISTORY/EVENTS Background: 83 year old female brought in as transfer from [facility] ED for subdural acute on chronic with new midline shift, AMS. Patient had GLF 2 weeks ago, had subdural and was admitted; no midline shift at that time, no AMS. Was doing well and discharged to rehab facility. Started on lovenox recently for DVT ppx. AMS noted on . Presented to ED today. Complaints of headache. No new injury. Hospital Course: 08/11 - admitted to TICU with acute on chronic subdural hematoma 08/12 - Labetalol started for continued htn (daughter states there is no allergy) 08/13 - OR w/NSG for left sided katty holes for evacuation of subdural hematoma 24-hour Events: Overnight Events: No acute overnight events. VITALS & INPUT/OUTPUT Vital Signs: Vital sign ranges over the past 24 hours (retrieved 08/14/2023 at 3:58 PM): Tmax (24 hours): 98.9 F (37.2 C) Pulse Av.1 Min: 67 Max: 87 Systolic (24hrs), Av , Min:115 , Max:179 Diastolic (24hrs), Av, Min:63, Max:102 MAP (mmHg) Av.8 mmHg Min: 84 mmHg Max: 115 mmHg Resp Av.5 Min: 13 Max: 20 SpO2 Av.1 % Min: 96 % Max: 100 % 24 Hour Input/Output In: 2147.5 (26.6 mL/kg) [P.O.:150; I.V.:1997.5 (1 mL/kg/hr)] Out: 1250 (15.5 mL/kg) [Urine:1250 (0.6 mL/kg/hr)] Net: 897.5 Weight: 80.8 kg --- PHYSICAL EXAM --- Constitutional: No acute distress. Cardiovascular: Regular rate and rhythm Pulmonary/Chest: No increased work of breathing on RA Abdominal: Soft. Non-distended. Non-tender. Musculoskeletal: No edema. Neurological: GCS 14, alert, oriented to self LABORATORY RESULTS (LAST 24 HOURS) CBC/PT/INR WBC RBC Hgb Hct MCV RDW Plt PT aPTT INR 08/14/23 1342 9.6 29.6 08/14/23 0023 7.0 3.10 9.5 28.5 92 14.4 291 Basic Metabolic Panel Na K Cl CO2 Gap Glu BUN Cr Ca Mg PO4 08/14/23 1342 144 08/14/23 1342 137 3.3 106 08/14/23 0023 1.8 08/14/23 0023 138 4.1 106 26 10 118 19 0.58 8.6 Arterial Blood Gases T Site Mode LPM FIO2 pH pCO2 pO2 Sat Base Ex HCO3- A-a 08/14/23 1342 23 08/14/23 1342 7.391 38.9 227 99.2 -1.1 23 IMAGING RESULTS (PERSONALLY REVIEWED) No new imaging today ASSESSMENT & PLAN -- Diagnosis s/p Acute on Chronic SDH: 83 year old female brought in as transfer from OSH ED for subdural acute on chronic with new midline shift, AMS. Patient had GLF 2 weeks ago, had subdural and was admitted; no midline shift at that time, no AMS. Was doing well and discharged to rehab facility. Started on lovenox recently for DVT ppx and ASA. AMS noted on . Presented to ED today. Complaints of headache. No new injury. PMHx HTN, CAD (NSTEMI, stent in RCA, takes ASA 81), carotid stenosis, previous fall resulting in Subdural hematoma Plan: Neurological: acute on chronic Subdural hematoma, worsening midline shift -NSGY following, recs: -Q1H neurochecks, CTH today post-op -OR for L katty hole on 08/14/23, will get embolization 08/14 (npo at midnight) -Continue home keppra dose -SBP<170, plt>100, INR<1.4 -normonatremia, normothermia, euvolemia -SCDs only, no AC/antiplt -tylenol prn for headache Cardiovascular: h/o htn, hld, pulmonary artery disease, NSTEMI w/stent in R coronary artery, carotid stenosis -no acute issues -continued home losartan, lipitor Respiratory: Asthma, DESTINY -no acute issues -continued home albuterol prn GI/Diet: -NPO, awaiting bedside swallow, OK for diet until midnight if able -senna scheduled and prn dulcolax Renal/Electrolytes: - difficulty urinating s/p kunz removal, straight cath @ 3am, repeat straight cath at 12:00 -restart NS 75cc/hr mIVF while NPO at midnight -Daily BMP, Mg, Phos Heme: -no acute issues -Daily CBC ID: -periop ancef (24 hours) Endocrine: d/c accucheck - No issues MSK: -No issues Tubes/Lines/Drains: PIVs Prophylaxis: -SCDs, holding lovenox (last dose 6/2 AM) Dispo: -LINDA Jesus MD General Surgery Resident TICU 7:42 PM 08/14/2023 Teaching Physician Note: I saw and evaluated the patient. I personally obtained the kuo and critical portions of the history and physical exam. I reviewed the resident's documentation and discussed the patient with the resident. I agree with the resident's medical decision making as documented in the resident's note. Sammie Barriga MD Critical care time was provided for 20 mins. The time involved in the performance of this care was exclusive of separately billable procedures, teaching time and treating other patients. This time was spent personally by the attending physician for the following activities: examination of patient, ordering and/or performing treatments, ordering and reviewing laboratory and radiographic studies, and if applicable, ventilatory management and blood gas interpretation. Critical care was necessary because of an illness or injury that acutely impaired one or more vital organs systems such that there was a high probability of imminent or life threatening deterioration in the patient s condition. The following organ systems are involved: neurological NEUROSURGERY POST-OPERATIVE NOTE Intval HPI: Patient is a 83 year old year old female POD #0 s/p left sided katty holes for evacuation of subdural hematoma OBJECTIVE: Vitals: Vital sign ranges over the past 24 hours (retrieved 08/14/2023 at 2:04 PM): Tmax (24 hours): 98.9 F (37.2 C) Pulse Av.8 Min: 67 Max: 89 Systolic (24hrs), Av , Min:115 , Max:179 Diastolic (24hrs), Av, Min:63, Max:102 MAP (mmHg) Av.8 mmHg Min: 84 mmHg Max: 115 mmHg Resp Av.5 Min: 13 Max: 20 SpO2 Av.1 % Min: 96 % Max: 100 % In: 1272.5 (15.7 mL/kg) [P.O.:400; I.V.:872.5 (0.4 mL/kg/hr)] Out: 1565 (19.4 mL/kg) [Urine:1565 (0.8 mL/kg/hr)] Net: -292.5 Weight: 80.8 kg Physical Exam: Waking up from anesthesia PERRL Following commands x4 MALKA x4 5/5 Drain: sanguinous output Wound: c/d/i ASSESSMENT: Pt is a 83 year old year old female PMH of HTN, CAD (NSTEMI, stent in RCA, takes ASA 81), carotid stenosis brought in as transfer from OSH ED s/p AMS. Upon arrival to OSH a CTH was conducted which shows a mixed density left hemispheric subdural hematoma measuring up to 2.2 cm at greatest thickness with increased mass effect upon the underlying brain parenchyma and resultant 1.2 cm left to right midline shift for which NSGY was consulted. Of note, patient had GLF 2 weeks ago, was found to have a subdural and was admitted; no midline shift at that time, no AMS. Was doing well and discharged to rehab facility. Started on lovenox recently for DVT ppx and AMS was noted to start on . Presented to ED today with complaints of WISDOM. NSGY consulted for further recs and management. 08/13 left sided katty holes for evacuation of subdural hematoma PLAN: To TICU post op Q1h neuro checks CTH post op today Drain to suction L MMA embolization tomorrow Keep NPO after midnight NSGY team to coordinate with neuro IR team Continue keppra 500 BID x7 days post op (thru 08/20) and then back to home regimen (500mg at bedtime) Perioperative abx - ancef x3 doses ADAT, OOB IPCs, hold SQH thru POD3 Jolene Snowden MD Neurological Surgery PGY-2 Service Pager: [phone] 08/14/2023 - 2:04 PM Images from the original note were not included. [facility] NEUROSURGERY DAILY PROGRESS NOTE SUBJECTIVE: No acute events overnight. OBJECTIVE: Vitals: Vital sign ranges over the past 24 hours (retrieved 08/14/2023 at 6:32 AM): Tmax (24 hours): 98.9 F (37.2 C) Pulse Av.8 Min: 72 Max: 89 Systolic (24hrs), Av , Min:119 , Max:175 Diastolic (24hrs), Av, Min:63, Max:102 MAP (mmHg) Av.4 mmHg Min: 84 mmHg Max: 115 mmHg Resp Av.6 Min: 13 Max: 20 SpO2 Av.1 % Min: 96 % Max: 100 % In: 1080 (13.4 mL/kg) [P.O.:400; I.V.:680 (0.4 mL/kg/hr)] Out: 1350 (16.7 mL/kg) [Urine:1350 (0.7 mL/kg/hr)] Net: -270 Weight: 80.8 kg Medications: [START ON 08/15/2023] losartan 50 mg Daily tamsulosin 0.4 mg Daily levETIRAcetam 500 mg At Bedtime atorvastatin 40 mg At Bedtime senna 8.6 mg At Bedtime sodium chloride 75 mL/hr at 08/14/23 0500 albuterol 2 Puff Q4H PRN acetaminophen 650 mg Q4H PRN bisacodyl 10 mg Daily PRN Labs: CBC/PT/INR WBC RBC Hgb Hct MCV RDW Plt PT aPTT INR 08/14/23 0023 7.0 3.10 9.5 28.5 92 14.4 291 08/13/23 1449 <21 08/13/23 1449 1.08 08/13/23 0259 6.9 3.28 10.0 30.0 92 14.6 311 08/12/23 1919 9.0 3.23 10.0 29.5 91 14.2 272 08/12/23 1919 -- Comment: CLOT This is a corrected result. Previous result on 08/12/2023 at 2020 EDT was 0.96 [C] [C] - Corrected Result WBC/Diff Neutro% Segs% Bands% Lymphs% Monos% Eos% Basos% 08/14/23 0023 79.8 10.4 7.6 1.5 0.7 08/12/231918 80.6 10.6 6.2 2.2 0.5 Basic Metabolic Panel Na K Cl CO2 Gap Glu BUN Cr Ca Mg PO4 08/14/23 0023 1.8 08/14/23 0023 138 4.1 106 26 10 118 19 0.58 8.6 08/13/23 0259 3.0 08/13/239 2.0 08/13/23258 141 4.2 108 26 11 103 20 0.66 9.0 08/12/231918 138 4.1 106 25 11 91 21 0.73 8.8 Hepatic/Biliary/Pancreas None Cardiac None Arterial Blood Gases None Fingerstick Glucose Glucose 08/13/23 1345 108 08/13/23 0805 105 CSF Culture None Urine Culture None Pyogen Culture None Blood Culture None Sputum Culture None Physical Exam: A&Ox1-2 (place with choices, not year) PERRL EOMI FS TM BUE: 07/14, no drift BLE: 07/14 A: Pt is a 83 year old year old female PMH of HTN, CAD (NSTEMI, stent in RCA, takes ASA 81), carotid stenosis brought in as transfer from OSH ED s/p AMS. Upon arrival to OSH a CTH was conducted which shows a mixed density left hemispheric subdural hematoma measuring up to 2.2 cm at greatest thickness with increased mass effect upon the underlying brain parenchyma and resultant 1.2 cm left to right midline shift for which NSGY was consulted. Of note, patient had GLF 2 weeks ago, was found to have a subdural and was admitted; no midline shift at that time, no AMS. Was doing well and discharged to rehab facility. Started on lovenox recently for DVT ppx and AMS was noted to start on . Presented to ED today with complaints of WISDOM. NSGY consulted for further recs and management. P: -ICU admission under trauma service -Q1 neuro checks -OR for L katty hole evac on Sunday 08/13 (consented with patient's mPOA/ daughter) Will update family - Dr. Hoffman is no longer available for procedure. Will reconsent family with Dr. Li. OR continues as planned. -NPO -Pre-op labs completed -Continue home Keppra -SBP <170 per trauma guidelines -Hold home ASA -Hold all antiplatelets/anticoagulants -Plts >100, INR <1.4 -Normonatremia, normothermia, euvolemia -SCDs only at this time for DVT prophylaxis. Hold SQH at this time. Toshia Gil PA-C Neurosurgery Service Pager: [phone] 08/14/2023 - 6:33 AM Images from the original note were not included. GENERAL INFORMATION TRAUMA FLOOR - STAFF NOTE Patient seen and examined on 08/13/2023 Patient Name: Carly Marcelino Admission Date: 08/12/2023 INTERVAL HISTORY/EVENTS Background: 83 year old female brought in as transfer from [facility] ED for subdural acute on chronic with new midline shift, AMS. Patient had GLF 2 weeks ago, had subdural and was admitted; no midline shift at that time, no AMS. Was doing well and discharged to rehab facility. Started on lovenox recently for DVT ppx. AMS noted on . Presented to ED today. Complaints of headache. No new injury. Hospital Course: 08/11 - admitted to TICU with acute on chronic subdural hematoma 08/12 - Labetalol started for continued htn (daughter states there is no allergy) 24-hour Events: Overnight Events: NSG consulted, no other acute events Saturations, Rates/Infusions: LR 75 cc/h Outputs: I 805/ O 750 (U 1.2mL/kg/hr) VITALS & INPUT/OUTPUT Vital Signs: Vital sign ranges over the past 24 hours (retrieved 08/13/2023 at 8:52 AM): Tmax (24 hours): 98.9 F (37.2 C) Pulse Av.3 Min: 78 Max: 96 Systolic (24hrs), Av , Min:123 , Max:170 Diastolic (24hrs), Av, Min:55, Max:118 MAP (mmHg) Av.7 mmHg Min: 80 mmHg Max: 128 mmHg Resp Av Min: 14 Max: 23 SpO2 Av.3 % Min: 89 % Max: 100 % 24 Hour Input/Output In: 805 (10 mL/kg) [I.V.:805 (0.4 mL/kg/hr)] Out: 750 (9.3 mL/kg) [Urine:750 (0.4 mL/kg/hr)] Net: 55 Weight: 80.8 kg --- PHYSICAL EXAM --- Constitutional: No acute distress. Cardiovascular: Regular rate and rhythm Pulmonary/Chest: No increased work of breathing on RA Abdominal: Soft. Non-distended. Non-tender. Musculoskeletal: No edema. Neurological: GCS 14, alert, oriented to self LABORATORY RESULTS (LAST 24 HOURS) CBC/PT/INR WBC RBC Hgb Hct MCV RDW Plt PT aPTT INR 08/13/239 6.9 3.28 10.0 30.0 92 14.6 311 08/12/231918 9.0 3.23 10.0 29.5 91 14.2 272 08/12/231918 -- Comment: CLOT This is a corrected result. Previous result on 08/12/2023 at 2020 EDT was 0.96 [C] [C] - Corrected Result Basic Metabolic Panel Na K Cl CO2 Gap Glu BUN Cr Ca Mg PO4 08/13/23258 3.0 08/13/23258 2.0 08/13/23258 141 4.2 108 26 11 103 20 0.66 9.0 08/12/231918 138 4.1 106 25 11 91 21 0.73 8.8 Arterial Blood Gases None IMAGING RESULTS (PERSONALLY REVIEWED) CXR: No acute findings CTH 08/12/23 IMPRESSION: Mixed density left hemispheric subdural hematoma measuring up to 2.2 cm at greatest thickness with increased mass effect upon the underlying brain parenchyma and resultant 1.2 cm left to right midline shift. Right lateral ventricular entrapment. ASSESSMENT & PLAN -- Diagnosis s/p Acute on Chronic SDH: 83 year old female brought in as transfer from OSH ED for subdural acute on chronic with new midline shift, AMS. Patient had GLF 2 weeks ago, had subdural and was admitted; no midline shift at that time, no AMS. Was doing well and discharged to rehab facility. Started on lovenox recently for DVT ppx and ASA. AMS noted on . Presented to ED today. Complaints of headache. No new injury. PMHx HTN, CAD (NSTEMI, stent in RCA, takes ASA 81), carotid stenosis, previous fall resulting in Subdural hematoma Plan: Neurological: acute on chronic Subdural hematoma, worsening midline shift -NSGY following, recs: -Q1H neurochecks -OR for L katty hole on 08/14/23 (NPO midnight 08/13) -Continue home keppra dose -SBP<170, plt>100, INR<1.4 -normonatremia, normothermia, euvolemia -SCDs only, no AC/antiplt -tylenol prn for headache Cardiovascular: h/o htn, hld, pulmonary artery disease, NSTEMI w/stent in R coronary artery, carotid stenosis -no acute issues -continued home losartan, lipitor Respiratory: Asthma, DESTINY -no acute issues -continued home albuterol prn GI/Diet: -NPO, bedside swallow was ok -senna scheduled and prn dulcolax Renal/Electrolytes: - difficulty urinating s/p kunz removal, straight cath @ 3am, repeat straight cath at 12:00 -restart NS 75cc/hr mIVF while NPO at midnight -Daily BMP, Mg, Phos Heme: -no acute issues -Daily CBC ID: -No indication for abx at this time Endocrine: d/c accucheck - No issues MSK: -No issues Tubes/Lines/Drains: PIVs Prophylaxis: -SCDs, holding lovenox (last dose 6/2 AM) Dispo: -LINDA Jesus MD General Surgery Resident Teaching Physician Note: I saw and evaluated the patient. I personally obtained the kuo and critical portions of the history and physical exam. I reviewed the resident's documentation and discussed the patient with the resident. I agree with the resident's medical decision making as documented in the resident's note. Sammie Barriga MD Acute on chronic SDH after lovenox Plan for katty hole tomorrow On my exam, while she seems to understand what is being said, she only answers in 'yes' 'no' and 'care...' GCS 14 Plan for straight cath for urinary retention. Critical care time was provided for 20 mins. The time involved in the performance of this care was exclusive of separately billable procedures, teaching time and treating other patients. This time was spent personally by the attending physician for the following activities: examination of patient, ordering and/or performing treatments, ordering and reviewing laboratory and radiographic studies, and if applicable, ventilatory management and blood gas interpretation. Critical care was necessary because of an illness or injury that acutely impaired one or more vital organs systems such that there was a high probability of imminent or life threatening deterioration in the patient s condition. The following organ systems are involved: neurological Division of Trauma, Surgical Critical Care, EGS Ticket to Roll Note . Provider Called Report To (Enter Provider Name, Service, and Time): Rajinderfidelia paezmaureen, 0023, who is the RUP. The patient is transferring from ED, room # 01, to TICU. The patient was added to the Trauma Surgery list. Richie Emmanuel MD RUP = Receiving unit provider RNF = Regular nursing floor documented in this encounter [facility] 08-22-2023 Consult note Formatting of th is note is different from the original. PHYSICAL THERAPY PROGRESS SUMMARY Patient seen from 1501 to 1526 on GC5E unit for 25 minute treatment. SUBJECTIVE: Patient Subjective/Goals: Where is my call light? Pt states when asked how to call for help 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: pt in bed upon entering room w/ corpak and IV intact Behavior: alert,cooperative, aphasia, follows commands, grossly oriented x 3, perseverative on folding tissues, distracted by objects around pt (linen, corpak, tissue etc..) easy to redirect Pain: Site/Location: pt does not report pain; Pain Scale: 0/10 Pain Relief Interventions Implemented: None required; No pain at this time Therex- AP 1x10 QS 1x10 Hs 1x10 Mobility NA Dep Max Mod Min CG CS DS MS I Comment Supine to sit x Increase time and effort Sit to/from stand x From EOB to rolling walker Performed 2 trials Walking on level surface x ~5 feet with rolling walker Gait Analysis: bed to chair decrease step length, moderate vc's to advance LE, increase time to complete Stairs x Not appropriate Stand to sit x Sit to Supine x Functional Endurance: impaired Sitting Balance: Static:fair Dynamic:fair *pt tends to sit w/ R lateral lean. Pt corrects to midline w/ vc's. Pt participates in bilateral UE multidirectional reach w/ pt accurately reaching target Pt leans over and retrieves tissue from floor w/o LOB Standing Balance: Static: fair w/ rolling walker Dynamic:fair w/ rolling walker *Pt static stands w/ rolling walker while DIGITAL PRINTER OPERATOR completes pericare d/t bowel incontinence Patient/Family Education: Patient instructed in sitting in chair for 1 hour and to call for nursing assist when ready to return to bed. Notified Rn that pt is in chair . Patient up in chair with call light in reach. Chair alarm intact. DME: With Patients permission ordered no equipment via [employer] Order. If any questions contact [facility] DME Provider at [phone]. 08/22/2023 6 Clicks Basic Mobility PT Difficulty turning over in bed 3 Difficulty sitting down and standing up from a chair with arms 3 Difficulty moving from lying on back to sitting on the side of the bed 3 Help from another person moving to and from bed to a chair 3 Help from another person to walk in hospital room 3 Help from another person climbing 3-5 steps with a railing 1 PT 6 Clicks Score 16 6 Click Score Guidelines: 1 - Total = Requires total assistance, or cannot do at all. 2 - A lot = Requires a lot of help (maximun to moderate assistance) Can use assistive devices. 3 - A little = Requires a little help (supervision, minimal assistance) Can use assistive devices. 4 - None = Does not require any help and does the activity independently. Can use assistive devices. ASSESSMENT: Recommend further therapy services in a Snf Setting once medically cleared. Will continue to follow patient while in hospital as appropriate. Continue with current goals as stated/revised below: ONGOING Goals (to be achieved by discharge from acute care): Patient will achieve acceptable level of pain control to allow participation in therapy. Patient will increase bed mobility to contact guard assistance Patient will perform sit to/from stand with rolling walker with contact guard assistance Patient will ambulate 50 feet with rolling walker with contact guard assistance Patient will increase ROM/Strength/Endurance/Balance to allow for above goals. Patient/Family independent with exercise program/precautions PLAN: Will follow established Plan of Care Rain VALVERDE Beeper #[phone] NA = Not Assessed, I = Independent, MS = Modified Independent, Sup = Supervised, Set up = Physical Assistance for Set-up Only, Min = Minimal Assistance, Mod = Moderate Assistance, Max = Maximal assistance; Dep = Dependent; AROM = Active Range of Motion; PROM = Passive Range of Motion; MMT = Manual Muscle Test [facility] Work Phone: 08-22-2023 Consult note Formatting of th is note is different from the original. Images from the original note were not included. Follow Up Adult Inpatient Nutrition Assessment Reason for visit: 7 Day Follow-Up Nutrition Assessment: Nutritionally Significant Meds: cerovite, miralax, margaret Labs: Basic Metabolic Panel Na K Cl CO2 Gap Glu BUN Cr Ca Mg PO4 08/22/23 0437 1.8 08/22/23 0437 3.0 08/22/23 043 137 4.2 104 27 10 100 30 0.61 8.8 08/21/23 0028 2.9 08/21/23 0028 3.7 08/21/23 0028 138 4.1 101 29 12 100 29 0.61 9.2 08/20/23 0125 3.0 08/20/23 0125 1.7 08/20/23 012 139 3.9 104 26 13 111 22 0.49 9.0 CBC (last 3 years, up to 5 values) (Last 5 results in the past 3 years) WBC RBC Hgb Hct MCV RDW Plt 08/22/237 6.6 3.11 9.2 28.4 91 15.1 285 08/21/23 0028 7.0 3.00 9.1 27.4 91 14.9 296 08/20/23 0125 7.4 3.15 9.5 28.8 92 14.3 263 08/18/23 0607 5.6 2.95 8.8 26.9 91 14.4 282 08/17/23 0356 6.0 2.95 9.1 26.4 90 14.4 278 LFT's (last 3 years, up to 5 values) (Last 5 results in the past 3 years) T Prot Albumin D Bili T Bili Alk Phos ALT AST 05/07/23 1113 6.3 0.4 05/06/23 0358 5.4 0.3 05/04/23 2309 6.1 0.2 05/03/23 2310 5.8 0.2 05/03/23 1323 5.8 0.4 Vital sign ranges over the past 24 hours (retrieved 08/22/2023 at 3:09 PM): Tmax (24 hours): 98.5 F (36.9 C) Pulse Av.7 Min: 82 Max: 90 Systolic (24hrs), Av , Min:118 , Max:133 Diastolic (24hrs), Av, Min:47, Max:63 MAP (mmHg) Av.7 mmHg Min: 64 mmHg Max: 78 mmHg Resp Av Min: 18 Max: 18 SpO2 Av % Min: 94 % Max: 96 % Intake/Output Summary (Last 24 hours) at 08/22/2023 1509 Last data filed at 08/22/2023 1000 Gross per 24 hour Intake 1296 ml Output 100 ml Net 1196 ml BMs: 08/21 Diet order: NPO Enteral order: Impact Peptide 1.5 @ 45 cc/hr Provides: 1080 cc, 1620 kcal, 101 gm prot Height: Data Unavailable 67 inches Admit Weight: 80.8 kg Current Weight: 80.8 kg IBW: 61.4 kg Current BMI: 27.91 Weight hx: 4% wt loss in x2 wks Kg Lbs 07/29/2023 3:50 PM 83.915 kg 185 lb 07/29/2023 4:48 PM 83.326 kg 183 lb 11.2 oz 08/13/2023 2:05 AM 80.831 kg 178 lb 3.2 oz Estimated needs: of admit wt 9346-3164 kcal/d 20-25 kcal/kg [MSJ 1298] 73-90g pro/d 1.2-1.5 g pro/kg of IBW Assessment: 83 year old female brought in as transfer from [facility] ED for subdural acute on chronic with new midline shift, AMS. Patient had GLF 2 weeks ago, had subdural and was admitted; no midline shift at that time, no AMS. Was doing well and discharged to rehab facility. Started on lovenox recently for DVT ppx. AMS noted on . Presented to ED today. Complaints of headache. No new injury. Hospital Course: 08/11 - admitted to TICU with acute on chronic subdural hematoma 08/12 - Labetalol started for continued htn (daughter states there is no allergy) 08/13 - OR w/NSG for left sided katty holes for evacuation of subdural hematoma 08/14 - underwent angio embolization, acute change in mental status with worsening expressive aphasia and right-sided weakness. EEG started and NCC consulted. 08/15 - EEG completed and seen by NCC. Continued to have persistent expressive aphasia and right-sided weakness. Bedside swallow was poor, so Corpek was placed. 08/17/2023 No acute events overnight, corpak placed mri completed 08/18/2023 No acute events 08/18- groin wound with drainage At this follow up, Pt continues on enteral feeds. At time of visit, observed pump running @ goal of 45 cc/hr. Per RN, Pt tolerating feeds well. Last BM today, no emesis. Mg low today, please monitor and replace PRN. May consider switching to more standard tube feed formula, will also make recs below for bolus feeds should they be desired. No new weight to assess, please weigh weekly. See recs below, thank you. ? Nutrition Problems: 1. Tube feeds Nutrition Interventions: 1. Adjust tube feeds Nutren 1.5 @ 45 cc/hr x 24 hours FWF per MD Provides 1080 cc, 1620 kcal, 73 gm prot For bolus feeds: 360 cc TID 2. Monitor/replace Mg PRN 3. Weekly weights Will continue to follow Melissa Varela RD, LD Personal Pager [phone] [employer] Pager: [phone] [facility] 08-22-2023 Progress note Formatting of t his note might be different from the original. SW SDU NOTE Per interdisciplinary rounds, Pt medically ready for SNF. Per MD, plan for Pt to return to SNF with Corepak in place and have ST follow-up Outpatient and at SNF. Plan for DC to [facility]. No pre-cert needed for DC. Per RN, intermittent roll-belt use ongoing since last night. Pt must be restraint free (including roll belt) for 24hrs prior to DC to any SNF. NICHO Ring, ILIANA Inpatient Cnc Operator P: [phone] [facility] 08-21-2023 Plan of care note Notified by primary team that patient will be discharging to SNF today. Plan: -Trauma primary, dispo per primary -OK for Diet -Continue Keppra per NCCU reccs -Hold home ASA until NSGY f/u this week -OK for SCDs and SQH -Patient OK for discharge from NSGY perspective, will see patient in clinic this week. Binh Hart MD Neurosurgery, Resident Pager: [phone] 08/21/2023 - 9:01 AM Please page the on-call pager after 6pm and on weekends [facility] 08-20-2023 Plan of care note Problem: Routine Care: Goal: Patient care will be managed and maintained throughout hospital stay per unit specific routine care procedure Outcome: Progressing Patient restraints removed this morning. Patient has not pulled at devices. Patient calm and cooperative with staff, A&Ox2; disoriented to date/time. Patient appears drowsy but is arousable to touch. Patient has had several large bowel movements today. Patient currently OOB to chair with chair alarm in place, call light in reach. [facility] 08-20-2023 Consult note Formatting of th is note is different from the original. OCCUPATIONAL THERAPY PROGRESS SUMMARY Patient seen from 10:40AM to 11:07AM on 5E unit for 27 minute treatment. (Cotx with PT for safety concerns/pt required assist x2 skilled therapists previous tx) SUBJECTIVE: Ruh, R-U-H OBJECTIVE: Pain: 0/10 Appearance/Behavior: Upon arrival, pt was supine in bed. Pleasant and cooperative. Corpak, IV, kunz. Cognition: A&O x3 UE Status: Grossly WFL; improvement with (R) grasp. Self Care: Assistance Level NA Dep Max Mod Min CG CS DS MS I Set-Up Cues Comment Feeding x NPO Grooming/ Hygiene x x Used wipes to wash (B) hands; anticipate min assist while standing at sink Bathing: Upper Body x Anticipates Bathing: Lower Body x x x Anticipates Dressing: Upper Body x To doff gown around backside Dressing: Lower Body x x x Required (B) socks to be threaded, able to pull up via figure four method while stabilizing LE Toileting x For hygiene after dark stool Toilet Transfers x2 On/off toilet Bed Transfer x2 Sit to stand via RW and min assist x2. Ambulated to/from bathroom via RW and min assist Bed Mobility x Supine to sit EOB; increased time to scoot towards EOB Patient was left seated in bedside chair with chair alarm activated. Call light in reach. Instructed pt to call nursing for assist back into bed; pt verbalized understanding. Endurance for Self Care: Impaired Patient/Family Education: Discussed role of OT and safe transfer techniques. 08/20/2023 6 Clicks Daily Activity OT Help from another person Eating meals 1 Help from another person taking care of personal grooming 2 Help from another person bathing 2 Help from another person putting on and taking off regular upper body clothing 3 Help from another person putting on and taking off regular lower body clothing 2 Help from another person toileting 1 OT 6 Clicks Score 11 6 Click Score Guidelines: 1 - Unable = Total/Dependent Assist 2 - A lot = Max/Moderate Assist 3 - A little = Minimum/Contact Guard Assist/Supervision 4 - Non = Modified Wilson/Independent ASSESSMENT: Recommend further therapy services in a Skilled Rehab Setting once medically cleared. Will continue to follow patient while in hospital as appropriate. Goals (to be achieved by discharge from acute care): ONGOING unless indicated Patient will perform grooming with Close supervision Patient will dress upper body with Contact Guard Patient will perform bed mobility with Minimal assistance MET Patient will perform bed transfers with Contact Guard Patient will perform commode transfers with Contact Guard Patient will demonstrate safety awareness as evidenced by compliance with safe transfers and mobility PLAN: Continue with Plan as per Initial Evaluation. ROSA MARIA Tse NA = Not Assessed, I = Independent, MS = Modified Independent, Sup = Supervised, Set up = Physical Assistance for Set-up Only, Min = Minimal Assistance, Mod = Moderate Assistance, Max = Max assistance; Dep = Dependent; AROM = Active Range of Motion;PROM=Passive Range of Motion; MMT = Manual Muscle Test; Shld= Shoulder; Add = Adduction; Abd = Abduction [facility] 08-20-2023 Consult note Formatting of th is note is different from the original. PHYSICAL THERAPY PROGRESS SUMMARY Patient seen from 10:40am to 11:04am on GC5E unit for 24 minute treatment. Co-session with OT necessary for safe and professional assist with mobility assessment and training. SUBJECTIVE: Patient Subjective/Goals: Ruh. R-U-H. 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: Obese, IV, Kunz, and Sequential Compression Devices (SCDs) Behavior: Awake, Cooperative. A&Ox 3. Delayed processing, flat affect. Pain: Site/Location: denies pain Mobility NA Dep Max Mod Min CG CS DS MS I Comment Supine to sit x Min A for trunk and BLE's. Transfers x2 Pivot transfer to chair Sit to/from stand x2 Min A x 2 sit to stand from EOB and from commode. Walking on level surface x 10 feet x 2 with rolling walker Gait Analysis: slow maryann, Unsteady, forward flexed posture. Patient requires assist for walker management and balance with ambulation. Stand to sit x Functional Endurance: impaired Sitting Balance: Static:fair + Dynamic:fair + Standing Balance: Static: fair- with RW Dynamic:fair- with RW Patient/Family Education: Instructed Patient in roles of therapy. Patient up in chair with call light in reach. Chair alarm intact. DME: With Patients permission ordered no equipment via [employer] Order. If any questions contact [facility] DME Provider at [phone]. 08/20/2023 6 Clicks Basic Mobility PT Difficulty turning over in bed 3 Difficulty sitting down and standing up from a chair with arms 2 Difficulty moving from lying on back to sitting on the side of the bed 3 Help from another person moving to and from bed to a chair 2 Help from another person to walk in hospital room 3 Help from another person climbing 3-5 steps with a railing 1 PT 6 Clicks Score 14 6 Click Score Guidelines: 1 - Total = Requires total assistance, or cannot do at all. 2 - A lot = Requires a lot of help (maximun to moderate assistance) Can use assistive devices. 3 - A little = Requires a little help (supervision, minimal assistance) Can use assistive devices. 4 - None = Does not require any help and does the activity independently. Can use assistive devices. ASSESSMENT: Patient was better able to participate with therapy this date. Patient cont to be functioning below baseline levels. Recommend further therapy services in a Snf Setting once medically cleared. Will continue to follow patient while in hospital as appropriate. Continue with current goals as stated/revised below: Goals (to be achieved by discharge from acute care): Patient will achieve acceptable level of pain control to allow participation in therapy. Patient will increase bed mobility to contact guard assistance Patient will perform sit to/from stand with rolling walker with contact guard assistance Patient will ambulate 50 feet with rolling walker with contact guard assistance Patient will increase ROM/Strength/Endurance/Balance to allow for above goals. Patient/Family independent with exercise program/precautions PLAN: Will follow established Plan of Care Lillian Liao PT NA = Not Assessed, I = Independent, MS = Modified Independent, Sup = Supervised, Set up = Physical Assistance for Set-up Only, Min = Minimal Assistance, Mod = Moderate Assistance, Max = Maximal assistance; Dep = Dependent; AROM = Active Range of Motion; PROM = Passive Range of Motion; MMT = Manual Muscle Test [facility] 08-19-2023 Plan of care note Problem: Routine Care: Goal: Patient care will be managed and maintained throughout hospital stay per unit specific routine care procedure Outcome: Progressing Note: Purposeful hourly rounding and assessment throughout shift Problem: Altered Elimination: Goal: Establishment of normal bowel function will be achieved and maintained Outcome: Progressing Problem: Impaired Mobility: Goal: Ability to tolerate increased activity will improve and be maintained Outcome: Progressing Note: PT/OT Problem: VTE Prophylaxis: Goal: Will be free of DVT Outcome: Progressing Problem: Fluid and Electrolyte Imbalance: Goal: Adequate fluid and electrolyte balance will be achieved and maintained Outcome: Progressing Problem: Altered Neurological Status: Goal: Optimal neurological status will be maintained or regained Outcome: Progressing Note: Q4 neurological assessments throughout shift Problem: Acute Pain: Goal: Ability to identify pain intensity on a pain scale and rate it consistently will be achieved and maintained Outcome: Progressing Goal: Understanding of proper administration and use of medicines will be achieved Outcome: Progressing Problem: Safety: Goal: Patient will remain free of falls during hospital stay Outcome: Progressing Goal: Free from injury during hospitalization Outcome: Progressing T [facility] 08-18-2023 Consult note Associated Order (s): IP OCCUPATIONAL THERAPY SERVICE REQUEST Occupational Therapy Consult received. Patient currently on caseload. Will continue to follow per POC. Current recommendations are for SNF. Alexsander Lee OTR/L [facility] 08-18-2023 Plan of care note Problem: Routine Care: Goal: Patient care will be managed and maintained throughout hospital stay per unit specific routine care procedure Outcome: Progressing Note: Purposeful hourly rounding and assessment throughout shift Problem: Altered Elimination: Goal: Establishment of normal bowel function will be achieved and maintained Outcome: Progressing Problem: Impaired Mobility: Goal: Ability to tolerate increased activity will improve and be maintained Outcome: Progressing Note: PT/OT Problem: VTE Prophylaxis: Goal: Will be free of DVT Outcome: Progressing Problem: Fluid and Electrolyte Imbalance: Goal: Adequate fluid and electrolyte balance will be achieved and maintained Outcome: Progressing Problem: Altered Neurological Status: Goal: Optimal neurological status will be maintained or regained Outcome: Progressing Note: Q4 neurological assessments throughout shift Problem: Acute Pain: Goal: Ability to identify pain intensity on a pain scale and rate it consistently will be achieved and maintained Outcome: Progressing Goal: Understanding of proper administration and use of medicines will be achieved Outcome: Progressing Problem: Safety: Goal: Patient will remain free of falls during hospital stay Outcome: Progressing Goal: Free from injury during hospitalization Outcome: Progressing [facility] 08-17-2023 Plan of care note Problem: Routine Care: Goal: Patient care will be managed and maintained throughout hospital stay per unit specific routine care procedure Outcome: Progressing Problem: Altered Elimination: Goal: Establishment of normal bowel function will be achieved and maintained Outcome: Progressing Note: Pt constipated, received prn dulcolax. If BM still not achieved, pt planned to have enema tomorrow. Problem: Impaired Mobility: Goal: Ability to tolerate increased activity will improve and be maintained Outcome: Progressing Problem: VTE Prophylaxis: Goal: Will be free of DVT Outcome: Progressing Note: SCDs maintained, also on subcutaneous heparin. Problem: Fluid and Electrolyte Imbalance: Goal: Adequate fluid and electrolyte balance will be achieved and maintained Outcome: Progressing Problem: Altered Neurological Status: Goal: Optimal neurological status will be maintained or regained Outcome: Progressing Note: Pt neuro checks changed to q4. Intermittently follows commands. Has not been able to verbally answer questions. Will continue to monitor. Problem: Safety: Goal: Patient will remain free of falls during hospital stay Outcome: Progressing Goal: Free from injury during hospitalization Outcome: Progressing [facility] 08-17-2023 Progress note Formatting of t his note might be different from the original. Social Work/Case Management: Reason for placement: PT/OT Therapies Patient level of care required : Skilled Applicant's potential for returning to community: Convalescent stay:<30 days Prognosis: Good Rehab Potential: Improve Mental/Behavioral status:Alert, Cooperative, Impaired memory Affect: Calm Social Work Assessment Functional status prior to admission: Prior to original hospital admission, pt with Community agencies active with patient: n/a Support system: Daughter Hebert Alvarez, Capacity for independent living/half-way plan: TBD, hope for plan to DC with family Other hospital admissions within the past 60 days: Yes at [facility] on 07/29/23 Other pertinent problems: PATRICIA Valdez LISW T [facility] 08-16-2023 Plan of care note Problem: Routine Care: Goal: Patient care will be managed and maintained throughout hospital stay per unit specific routine care procedure Outcome: Progressing Problem: Altered Elimination: Goal: Establishment of normal bowel function will be achieved and maintained Outcome: Progressing Problem: Impaired Mobility: Goal: Ability to tolerate increased activity will improve and be maintained Outcome: Progressing Problem: VTE Prophylaxis: Goal: Will be free of DVT Outcome: Progressing Problem: Fluid and Electrolyte Imbalance: Goal: Adequate fluid and electrolyte balance will be achieved and maintained Outcome: Progressing Problem: Altered Neurological Status: Goal: Optimal neurological status will be maintained or regained Outcome: Progressing Problem: Acute Pain: Goal: Ability to identify pain intensity on a pain scale and rate it consistently will be achieved and maintained Outcome: Progressing Goal: Understanding of proper administration and use of medicines will be achieved Outcome: Progressing Problem: Safety: Goal: Patient will remain free of falls during hospital stay Outcome: Progressing Goal: Free from injury during hospitalization Outcome: Progressing [facility] 08-16-2023 Consult note Associated Order (s): IP PHYSICAL THERAPY SERVICE REQUEST PHYSICAL THERAPY PROGRESS SUMMARY Patient seen from 3:00 to 3:10 on 5W unit for 10 minute treatment. Nurse asked for patient to remain in bed due to leaving for MRI soon. Medical Updates: 08.14.23: Left-sided bur holes x2 for evacuation of [id number] subdural hematoma. 2. Placement of left-sided subgaleal drain 08.15.23:Cerebral angiogram with LMMA embolization SUBJECTIVE: Patient Subjective/Goals: Carly re: What is your name. Patient not oriented to place or date. Patient not able to speak. Patient saying yes to all choices. 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, IV, and Kunz Behavior: Impaired, Drowsy Pain: Site/Location: B LE; Pain Scale: moderate/10 Pain Relief Interventions Implemented: Positioning, Notified Nurse, and RN aware and reports patient received medication according to time schedule Mobility NA Dep Max Mod Min CG CS DS MS I Comment Roll to right sidelying x2 Patient repositioned in bed with wedges Roll to left sidelying x2 Sidelying to sit Supine to sit Transfers Sit to/from stand Walking on level surface Stairs Stand to sit Sit to Supine Functional Endurance: Impaired Patient received B LE PROM 1x10 reps of ankle dorsiflexion/plantarflexion to neutral, knee flexion/extension to 90*, hip flexion/extension to 90* and hip AB/ADduction to 30*. Patient received B ankle dorsiflexion stretch for 10 second hold 1x5 reps. Patient/Family Education: Instructed Patient in roles of therapy. Instructed Patient in roles, goals, treatment plan: demonstrated good verbal understanding. Instructed patient in Exercise Program for Ankle pumps x10 reps Patient up in bed with call light in reach. DME: With Patients permission ordered no equipment via [employer] Order. If any questions contact [facility] DME Provider at [phone]. 08/16/2023 6 Clicks Basic Mobility PT Difficulty turning over in bed 2 Difficulty sitting down and standing up from a chair with arms 1 Difficulty moving from lying on back to sitting on the side of the bed 1 Help from another person moving to and from bed to a chair 1 Help from another person to walk in hospital room 1 Help from another person climbing 3-5 steps with a railing 1 PT 6 Clicks Score 7 6 Click Score Guidelines: 1 - Total = Requires total assistance, or cannot do at all. 2 - A lot = Requires a lot of help (maximun to moderate assistance) Can use assistive devices. 3 - A little = Requires a little help (supervision, minimal assistance) Can use assistive devices. 4 - None = Does not require any help and does the activity independently. Can use assistive devices. ASSESSMENT: Recommend further therapy services in a Snf Setting once medically cleared. Will continue to follow patient while in hospital as appropriate. Continue with current goals as stated/revised below: Goals (to be achieved by discharge from acute care): Patient will achieve acceptable level of pain control to allow participation in therapy. Patient will increase bed mobility to contact guard assistance Patient will perform sit to/from stand with rolling walker with contact guard assistance Patient will ambulate 50 feet with rolling walker with contact guard assistance Patient will increase ROM/Strength/Endurance/Balance to allow for above goals. Patient/Family independent with exercise program/precautions PLAN: Will follow established Plan of Care Vickie Pete, PT, DPT #[phone] NA = Not Assessed, I = Independent, MS = Modified Independent, Sup = Supervised, Set up = Physical Assistance for Set-up Only, Min = Minimal Assistance, Mod = Moderate Assistance, Max = Maximal assistance; Dep = Dependent; AROM = Active Range of Motion; PROM = Passive Range of Motion; MMT = Manual Muscle Test [employer] Work Phone: 08-16-2023 Consult note Formatting of th is note might be different from the original. TICU OT Attempted OT visit Patient not medically appropriate per discussion with RN. Will re-attempt at next available opportunity. Aurea MOE OTR/L Pager: [phone] Secure chat preferred [employer] Work Phone: 08-16-2023 Consult note Associated Order (s): NUTRITION NEW CONSULT Images from the original note were not included. Initial Adult Inpatient Nutrition Assessment Reason for Visit: Consult - TF Nutrition Assessment: Admitting Diagnosis: AMS change SDH with midline shift No past medical history on file. Past Surgical History: Procedure Laterality Date KATTY HOLES, HEMATOMA EVACUATION Left 08/14/2023 Procedure: KATTY HOLES x2, HEMATOMA EVACUATION; Surgeon: Artem Li MD; Location: PERIOPERATIVE SERVICES; Service: Neurosurgery is allergic to hydantoins, hydrochlorothiazide, valproic acid, sertraline, dilantin [phenytoin], amlodipine base, carbamazepine, labetalol, mastisol, mometasone furo-formoterol fum, nifedipine, and nitrofurantoin. Labs: Basic Metabolic Panel Na K Cl CO2 Gap Glu BUN Cr Ca Mg PO4 08/16/23 0053 2.7 08/16/23 0053 1.6 08/16/23 0053 137 3.6 106 24 11 93 13 0.48 8.0 08/15/23 0156 3.7 08/15/23 0156 2.0 08/15/23 0156 136 4.2 107 23 10 122 14 0.57 7.8 08/14/23 1342 144 08/14/23 1342 137 3.3 106 08/14/23 0023 1.8 08/14/23 0023 138 4.1 106 26 10 118 19 0.58 8.6 08/12/2023 7:19 PM Ethanol <10 08/13/2023 3:40 AM Color Light Yellow Appearance Turbid pH 6.0 Spec [place] 1.018 Protein 20 Blood Negative Bilirubin Negative Urobilinogen Negative Ketones Negative Leuk. Esterase Positive ! Nitrite Negative Glucose Negative WBC 11-30 ! RBC 0-2 Mucous Threads Present Squamous Epitheleal 0-2 CBC (last 3 years, up to 5 values) (Last 5 results in the past 3 years) WBC RBC Hgb Hct MCV RDW Plt 08/16/23 0053 7.4 2.97 9.0 26.9 91 14.6 300 08/15/23 0156 6.8 2.94 8.9 26.6 90 14.4 314 08/14/23 1342 9.6 29.6 08/14/23 0023 7.0 3.10 9.5 28.5 92 14.4 291 08/13/23 0259 6.9 3.28 10.0 30.0 92 14.6 311 LFT's (last 3 years, up to 5 values) (Last 5 results in the past 3 years) T Prot Albumin D Bili T Bili Alk Phos ALT AST 05/07/23 1113 6.3 0.4 05/06/23 0358 5.4 0.3 05/04/23 2309 6.1 0.2 05/03/23 2310 5.8 0.2 05/03/23 1323 5.8 0.4 Lipids (last 3 years, up to 5 values) None Arterial Blood Gases None Lab Results Component Value Date HBA1C 4.9 05/03/2023 Accuchecks: Fingerstick Glucose (last 72 hours) Glucose 08/13/23 1345 108 Vitamin B12 (pg/mL) Date Value 08/02/2023 900 No results found for: FOL No results found for: FE No results found for: VITD25 No results found for: ZINC Vital sign ranges over the past 24 hours (retrieved 08/16/2023 at 12:06 PM): Tmax (24 hours): 99.3 F (37.4 C) Pulse Av.4 Min: 68 Max: 90 Systolic (24hrs), Av , Min:124 , Max:181 Diastolic (24hrs), Av, Min:56, Max:115 MAP (mmHg) Av.9 mmHg Min: 75 mmHg Max: 119 mmHg Resp Av.2 Min: 8 Max: 26 SpO2 Av.6 % Min: 87 % Max: 100 % DONAL BM UOP 08/14 20 2410 6/4 50 1185 6/3 X1 1565 6/2 750 Nutritionally Significant Meds: magnesium sulfate, 2,000 mg, Intravenous, One Time Dose levETIRAcetam orderable, 500 mg, Intravenous, Every 12 hours lisinopril, 2.5 mg, Oral, Daily losartan, 50 mg, Oral, Daily atorvastatin, 40 mg, Oral, At Bedtime senna, 8.6 mg, Oral, At Bedtime sodium chloride, , Last Rate: 75 mL/hr at 08/16/23 1049 Diet Order: NPO Nutrition Focused Physical Exam Muscle loss: Episcopalian region: slight depression Clavicle region: visible bone with some protrusion Scapula region: mild depression Anterior thigh: well rounded Posterior calf: well developed Fat loss: Orbital region: slightly dark [place]/somewhat hollow look Tricep/bicep region: ample fat tissue Rib/back region: chest full/ribs do not show Edema: none Hair/Nails/Skin: head surgical incision, EEG leas, scattered brusing Eyes/Nose/Mouth: room air, edentulous, corpak Height: Data Unavailable 67 inches Admit Weight: 80.8 kg Current Weight: 80.8 kg IBW: 61.4 kg Current BMI: 27.91 Weight hx: 4% wt loss in x2 wks Kg Lbs 07/29/2023 3:50 PM 83.915 kg 185 lb 07/29/2023 4:48 PM 83.326 kg 183 lb 11.2 oz 08/13/2023 2:05 AM 80.831 kg 178 lb 3.2 oz Estimated needs: of admit wt 7817-5884 kcal/d 20-25 kcal/kg [MSJ 1298] 90g pro/d 1.5 g pro/kg of IBW Assessment: 83 yo female w/ pmh of 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 Transferred to . 08/11 Admitted to TICU. CTH 08/12 Regular diet 08/13 NPO; OR s/p L sided katty holes for SDH evacuation, DONAL drain; rCTH w/ improved MLS and SDH; 08/14 S/p angiogram and LMMA embolization; waxing/waning; EEG - per NCCU no seizures 08/15 DONAL drain removed; failed BDS with RN - Corpak placed On room air. NPO and on NS IVF. Corpak placement successful during exam. Requiring restraints to avoid pt from self removing tube. Per RN nicolas previously attempted and unsuccessful by multiple nurses. EEG in process still. On exam pt is awake, moaning, able to say Ryann is her last name but not able to report place. No family bedside. Per chart review was advanced to a regular diet during her prior admit sustaining SDH -per DT note during prior admission pt with reduced oral intake. Noted pt with acute weight loss in past 2 weeks after trauma - 4% in in 2 weeks. C/f acute inadequate nutrition 5+days - unclear of exact po intake at rehab recently. NFPE some some mild muscle loss in UEs - unclear if acutely related to injury vs chronic from aging. Suspect at risk for malnutrition. Plan to start TF via corpak as pt unable to maintain adequate oral intake at this time. Nutrition Problems: AMS Nutrition Interventions: - Enteral nutrition Impact peptide 1.5 @ 15 mL/hr increasing 10ml q4hr until goal @ 45 mL/hr x24 Provides 1080 mL, 1620 demetria, 101g protein - Start cerovite 15 mL daily multi. Consider short term course of IV thiamine 100mg daily x5d for possible refeeding risk? - Monitor tolerance to high protein formula above. If BUN rising and pt receiving near goal TF intake consistently can trial lower protein formula Peptamen 1.5 @ 50 mL/hr x24 Provides 1200 mL, 1800 demetria, 81g protein - Anticipate need for additional volume when IVFs/drips stopped - can consider 150 mL water flushes q6hr - INSPECTOR CHIEF consult after failed bedside swallow, acute on chronic SDH, and post op Monitor ability to advance diet If cleared for thin liquids would benefit from boost plus with meal trays (or alternative ensure plus) - If supplemental TF desired when diet advanced to help stimulate po intake Impact peptide 1.5 @ 55 mL/hr x 12hrs Provides 660 mL, 990 demetria, 62g protein Delores Garcia RD, LD, [facility] Personal Pager: [phone] (Mon-Fri 7a-3:30p) Nutrition Alcohol Rubber Pager (evenings/weekends 7a-7p): [phone] Dietitian vs [employer]: Dietitian and News Copy Editor [facility] 08-16-2023 Procedure note Procedure(s): REMOVAL, DRAIN After discussion with attending physician and evaluation of drain output, the decision was made to discontinue the DONAL cranial drain. The drain was removed from suction. The area was prepped with betadine and the anchoring suture was cut. The drain was removed intact, without difficulty. The drain site was closed using a figure 8 stitch and 3-0 monocryl suture. No drainage was appreciated from the site. The patient tolerated the procedure well. Toshia Gil PA-C Neurosurgery [phone] [facility] 08-16-2023 Procedure note Procedure(s): REMOVAL, DRAIN After discussion with attending physician and evaluation of drain output, the decision was made to discontinue the DONAL cranial drain. The drain was removed from suction. The area was prepped with betadine and the anchoring suture was cut. The drain was removed intact, without difficulty. The drain site was closed using a figure 8 stitch and 3-0 monocryl suture. No drainage was appreciated from the site. The patient tolerated the procedure well. Toshia Gil PA-C Neurosurgery [phone] documented in this encounter [facility] 08-15-2023 Consult note Associated Order (s): IP NEUROCRITICAL CARE CONSULT Images from the original note were not included. NCC INITIAL CONSULT NOTE Reason for Consult: speech difficulty Consulted by: Sammie Barriga MD HPI: 83W with h/o remote seizures, HTN, CAD (NSTEMI, stent in RCA, takes ASA 81), carotid stenosis, recently diagnosed SDH who presents with decline in mental status from OSH. Pt was diagnosed with L SDH after fall from stand a couple weeks prior to admission. This was managed nonoperatively and pt was discharged to rehab. Per family, pt was progressing well and planning for discharge home until 2 days prior to admission, when seemed more lethargic. 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 Underwent katty hole evacuation 08/13 on the L. On 08/14, went to IR for L MMA embolization. Family states that prior to her fall 2 weeks, she was independent in ADLs and lived alone. Used a walker for ambulation. Was still able to drive. Family states that pt had remote history of seizures in her 30s and was managed with neurotin. Has not a seizure in many years. Does not actively follow with a neurologist. 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 Was noted to have sharp waves on EEG during that admit. Was on keppra XL 500mg daily. Pre-admit mRS: 2: Slight disability; unable to carry out all previous activities, but able to look after own affairs without assistance Review of Systems ROS as in the HPI. 10 point ROS otherwise reviewed for complaint and are negative. No past medical history on file. Past Surgical History: Procedure Laterality Date KATTY HOLES, HEMATOMA EVACUATION Left 08/14/2023 Procedure: KATTY HOLES x2, HEMATOMA EVACUATION; Surgeon: Artem Li MD; Location: PERIOPERATIVE SERVICES; Service: Neurosurgery No family history on file. Social History Socioeconomic History Marital status: Unknown Social Determinants of Health Financial Resource Strain: Low Risk (05/04/2023) Received from [facility] Overall Financial Resource Strain (CARDIA) Difficulty of Paying Living Expenses: Not hard at all Food Insecurity: No Food Insecurity (05/04/2023) Received from [facility] Hunger Vital Sign Worried About Running Out of Food in the Last Year: Never true Ran Out of Food in the Last Year: Never true Transportation Needs: No Transportation Needs (05/04/2023) Received from [facility] PRAPARE - Transportation Lack of Transportation (Medical): No Lack of Transportation (Non-Medical): No Vitals: 08/15/23 1800 BP: 165/96 Pulse: 79 Resp: 15 Temp: 98.4 F (36.9 C) SpO2: 95% Intake/Output Summary (Last 24 hours) at 08/15/2023 1809 Last data filed at 08/15/2023 1700 Gross per 24 hour Intake 1775 ml Output 1715 ml Net 60 ml Current Facility-Administered Medications: labetalol (TRANDATE) 5 mg/mL injection, 10 mg, Intravenous Push, One Time Dose, Ronnie Jesus MD lisinopril (ZESTRIL) tablet, 2.5 mg, Oral, Daily, Ronnie Jesus MD losartan (COZAAR) tablet, 50 mg, Oral, Daily, Herbert Alcala PA-C, 50 mg at 08/15/23816 levETIRAcetam (KEPPRA) tablet, 500 mg, Oral, 2x Daily, 500 mg at 08/15/23816 FOLLOWED BY [START ON 08/21/2023] levETIRAcetam (KEPPRA) tablet, 500 mg, Oral, At Bedtime, Binh Hart MD labetalol (TRANDATE) 5 mg/mL injection, 10 mg, Intravenous Push, Q6H PRN, Jolene Snowden MD, 10 mg at 08/15/23 1559 albuterol (PROVENTIL HFA) 108 (90 Base) MCG/ACT HFA inhaler, 2 Puff, Inhalation, Q4H PRN, Jolene Snowden MD atorvastatin (LIPITOR) tablet, 40 mg, Oral, At Bedtime, Jolene Snowden MD, 40 mg at 08/14/23 2225 acetaminophen (TYLENOL) tablet, 650 mg, Oral, Q4H PRN, Jolene Snowden MD, 650 mg at 08/15/23816 senna (SENOKOT) tablet, 8.6 mg, Oral, At Bedtime, Jolene Snowden MD, 8.6 mg at 08/14/23 2225 bisacodyl (DULCOLAX) 5 MG enteric coated tablet, 10 mg, Oral, Daily PRN, Jolene Snowden MD Exam Neurologic: Cognition: Level of consciousness: awake, alert Language: word salad, other than ok there is no intelligible speech. Does not follow commands or respond to questions. Cranial Nerves CN II: Pupils: 3 mm OD reactive, 2 mm OS no clearly reactive to light/has corneal clouding on this side. CN III, IV, : Extraocular movements: intact CN V: Facial sensation: limited by aphasia CN VII: Facial motor function: no clear droop CN VIII: Hearing: intact to conversation CN IX, X: limited by aphasia CN XI: limited by aphasia CN XII: limited by aphasia Motor/sensory Tone: normal Spontaneous abnormal movements:none Did not cooperate with formal testing. BUE spont and antigravity, at least 4. BLE withdraws to nox stim, barely antigravity DTRs R Biceps: 1 Triceps: 0 Patellar: 0 Ankle: 0 Babinski: mute L Biceps: 1 Triceps: 0 Patellar: 0 Ankle: 0 Babinski: mute General appearance: normal appearing at stated age Head: atraumatic Neck: supple Eyes/orbits: no scleral icterus, edema or injection Mucous membranes: moist Lungs: on RA Heart: regular rate, regular rhythm Abdomen: soft Extremities: no deformities Skin: no rash Labs: CBC (last 3 years, up to 5 values) (Last 5 results in the past 3 years) WBC RBC Hgb Hct MCV RDW Plt 08/15/23 0156 6.8 2.94 8.9 26.6 90 14.4 314 08/14/23 1342 9.6 29.6 08/14/23 0023 7.0 3.10 9.5 28.5 92 14.4 291 08/13/23 0259 6.9 3.28 10.0 30.0 92 14.6 311 08/12/23 1919 9.0 3.23 10.0 29.5 91 14.2 272 BMP (last 3 years, up to 8 values) 08/15/2023 08/14/2023 08/14/2023 08/13/2023 08/12/2023 08/03/2023 08/02/2023 08/01/2023 1:56 AM 1:42 PM 12:23 AM 2:59 AM 7:19 PM 12:13 AM 5:57 AM 5:00 AM Na 136 137 138 141 138 136 136 139 K 4.2 3.3 4.1 4.2 4.1 4.3 4.2 4.0 Cl 107 106 106 108 106 102 102 104 CO2 23 -- 26 26 25 27 26 27 Gap 10 -- 10 11 11 11 12 12 Glu 122 144 118 103 91 100 104 93 BUN 14 -- 19 20 21 18 17 15 Cr 0.57 -- 0.58 0.66 0.73 0.71 0.73 0.68 Ca 7.8 -- 8.6 9.0 8.8 8.3 8.2 8.7 eGFR 90 -- 89 86 81 84 81 86 Lab Results Component Value Date HBA1C 4.9 05/03/2023 Lipids (last 3 years, up to 5 values) None ASSESSMENT: 83W with h/o remote seizures, HTN, CAD (NSTEMI, stent in RCA, takes ASA 81), carotid stenosis, recently diagnosed SDH who presents with decline in mental status from OSH. 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 S/p katty hole evac (08/13) and L MMA embolization (08/14). Exam notable for receptive aphasia, word salad. No clear seizures on EEG. RECS: - cont EEG - cont keppra 500mg IV BID - supplement thiamine, folate, multivitamin - corpak to initiate nutrition (not clear that pt has had much intake over the last 5 days), and continue medications Total length of time 55 (minutes) of the encounter, exclusive of procedures. Time-based billing justifications: Reviewing (chart, labs, and other clinical notes) Obtaining history (or reviewing separately obtained history) Patient visit (including performing a medically appropriate exam) Counseling/educating the patient/family/caregiver Ordering (medications, tests, procedures - including independent interpretation of results when not reported separately) Referring/communicating with other health transitional care manager - when not reported separately Charting in [facility] Jamila Yuan MD [facility] service pager (for CCP consults): [phone] [facility] 08-15-2023 Surgery Postoperative evaluation and management note POST-PROCEDURE NOTE Procedure: Cerebral angiogram with LMMA embolization Pre-operative Diagnosis: Left AoC SDH Post-operative Diagnosis: Same Attending: Royce Casarez MD Net Sorter: Bekah Leon TIME OUT was performed prior to the procedure using active communication to verify correct patient, procedure, and site: Yes Intraoperative Medications: Medications Medication Event Details Admin User Admin Time midazolam (VERSED) 2 MG/2ML injection Medication Given Dose: 1 mg; Route: Intravenous Push Anca Salcido RN 08/15/2023 3:14 PM fentaNYL (SUBLIMAZE) 100 MCG/2ML injection Medication Given Dose: 50 mcg; Route: Intravenous Push Anca Salcido RN 08/15/2023 3:14 PM midazolam (VERSED) 2 MG/2ML injection Medication Given Dose: 1 mg; Route: Intravenous Push Anca Salcido RN 08/15/2023 3:27 PM Complications: None Specimens: N/A Estimated Blood Loss: None Post Procedure Pain Rating: See nursing notes Findings: L MMA embolized to occlusion using collagen slurry and fibered microcoils. RCFA closed with angioseal. Plan: Per primary team Please see procedure dictation in EPIC/PACS for full procedural details. Dr. Casarez was present for the critical portion of the procedure. Royce Casarez MD Radiology [employer] Work Phone: 08-15-2023 Miscellaneous Notes POST-PROCEDURE NOTE Procedure: Cerebral angiogram with LMMA embolization Pre-operative Diagnosis: Left AoC SDH Post-operative Diagnosis: Same Attending: Royce Casarez MD Net Sorter: Bekah Leon TIME OUT was performed prior to the procedure using active communication to verify correct patient, procedure, and site: Yes Intraoperative Medications: Medications Medication Event Details Admin User Admin Time midazolam (VERSED) 2 MG/2ML injection Medication Given Dose: 1 mg; Route: Intravenous Anca Pearson RN 08/15/2023 3:14 PM fentaNYL (SUBLIMAZE) 100 MCG/2ML injection Medication Given Dose: 50 mcg; Route: Intravenous Push Anca Salcido RN 08/15/2023 3:14 PM midazolam (VERSED) 2 MG/2ML injection Medication Given Dose: 1 mg; Route: Intravenous Push Anca Salcido RN 08/15/2023 3:27 PM Complications: None Specimens: N/A Estimated Blood Loss: None Post Procedure Pain Rating: See nursing notes Findings: L MMA embolized to occlusion using collagen slurry and fibered microcoils. RCFA closed with angioseal. Plan: Per primary team Please see procedure dictation in EPIC/PACS for full procedural details. Dr. Casarez was present for the critical portion of the procedure. Royce Casarez MD Radiology documented in this encounter [facility] 08-15-2023 Note Patient transported back to unit from IR after procedure with RN and PCNA without complications [employer] [facility] 08-15-2023 Note Patient transported to IR for a procedure with RN and PCNA without complication. [employer] [facility] 08-15-2023 Consult note Formatting of th is note is different from the original. Physical Therapy Clinical update: s/p OR on 08/14/23 for L sided [place] holes for SDH evacuation. DONAL drain placed 08/15/23: awaiting L MMA embolization Time in: 839, time out: 902 SUBJECTIVE: pt nods NO,(min to no verbalization) OBJECTIVE: Pt. seen on 5w for 23 minutes for treatment as follows: Appearance/behavior: R scalp katty holes, DONAL drain, dressings, ICU monitors, kunz , scds Severe aphasia Able to follow automatic motor commands , no other commands Pain: did not rate/10, appears to have mild pain- unable to localize Strength : pt now R hemiparesis: not following commands to MMT or AROM. Able to WB well on RLE, unable to grasp and wb on walker with UE Bed mobility: Rolling: max A Supine to sit: max A x2 Transfers: mod A x2 sit <> stand and stand pivot bed to chair with attempts to use Wheeled walker - however pt unable to coo & co founder with RUE Ambulation: 2' with Wheeled walker with unable to grasp with R UE for proper use with mod A x2, shuffling, significant R lean Patient education: Calling for assist for all mobility while in hospital , oriented to upcoming proceedure Pt sitting in chair at bedside after rx. with call light in reach. Pt instructed to call for asssistance with all mobility. Nelly pressure alarm intact. RN aware 08/15/2023 6 Clicks Basic Mobility PT Difficulty turning over in bed 2 Difficulty sitting down and standing up from a chair with arms 2 Difficulty moving from lying on back to sitting on the side of the bed 2 Help from another person moving to and from bed to a chair 2 Help from another person to walk in hospital room 2 Help from another person climbing 3-5 steps with a railing 1 PT 6 Clicks Score 11 6 Click Score Guidelines: 1 - Total = Requires total assistance, or cannot do at all. 2 - A lot = Requires a lot of help (maximun to moderate assistance) Can use assistive devices. 3 - A little = Requires a little help (supervision, minimal assistance) Can use assistive devices. 4 - None = Does not require any help and does the activity independently. Can use assistive devices.. ASSESMENT: pt with increased apasia, R hemiparesis and decline in functional mobility this date. Pt pending MMA embolization. Will continue to follow. Recommend further therapy services in a Snf Setting once medically cleared. Will continue to follow patient while in hospital as appropriate. Continue with current goals as stated/revised below: Goals (to be achieved by discharge from acute care): Patient will achieve acceptable level of pain control to allow participation in therapy. Patient will increase bed mobility to contact guard assistance Patient will perform sit to/from stand with rolling walker with contact guard assistance Patient will ambulate 50 feet with rolling walker with contact guard assistance Patient will increase ROM/Strength/Endurance/Balance to allow for above goals. Patient/Family independent with exercise program/precautions PLAN: Continue PT per POC Daina Bourgeois PT [phone] [facility] 08-15-2023 Surgery Preoperative evaluation and management note Pre-Procedure Note HISTORY: Procedure: LMMA embolization Indication: AoC SDH No past medical history on file. Substance Abuse History: History Drug Use Not on file Current Facility-Administered Medications Medication Dose Route Frequency Last Rate Last Admin losartan (COZAAR) tablet 50 mg Oral Daily 50 mg at 08/15/23 0817 levETIRAcetam (KEPPRA) tablet 500 mg Oral 2x Daily 500 mg at 08/15/23 0817 Followed by [START ON 08/21/2023] levETIRAcetam (KEPPRA) tablet 500 mg Oral At Bedtime labetalol (TRANDATE) 5 mg/mL injection 10 mg Intravenous Push Q6H PRN 10 mg at 08/14/23 1449 sodium chloride 0.9 % iv infusion Intravenous Continuous 75 mL/hr at 08/15/23 1000 Rate Verify at 08/15/23 1000 albuterol (PROVENTIL HFA) 108 (90 Base) MCG/ACT HFA inhaler 2 Puff Inhalation Q4H PRN atorvastatin (LIPITOR) tablet 40 mg Oral At Bedtime 40 mg at 08/14/23 2225 acetaminophen (TYLENOL) tablet 650 mg Oral Q4H PRN 650 mg at 08/15/23 0817 senna (SENOKOT) tablet 8.6 mg Oral At Bedtime 8.6 mg at 08/14/23 2225 bisacodyl (DULCOLAX) 5 MG enteric coated tablet 10 mg Oral Daily PRN Allergies: Hydantoins, Hydrochlorothiazide, Valproic acid, Sertraline, Dilantin [phenytoin], Amlodipine base, Carbamazepine, Labetalol, Mastisol, Mometasone furo-formoterol fum, Nifedipine, and Nitrofurantoin PHYSICAL EXAM: Blood pressure 151/78, pulse 76, temperature 98.8 F (37.1 C), resp. rate 21, weight 178 lb 3.2 oz (80.8 kg), SpO2 98%. Lungs: Clear to auscultation bilaterally Heart: Regular rate and rhythm Pertinent Findings: Labs Reviewed? Yes Recent Labs: Result for specified components in the past 45 days Component Date/Time Result Units Hemoglobin 08/15/2023 5:56 AM 8.9 g/dL Hematocrit 08/15/2023 5:56 AM 26.6 % Platelet 08/15/2023 5:56 AM 314 K/uL aPTT 08/13/2023 6:49 PM <21 sec Protime 08/13/2023 6:49 PM 12.1 sec INR 08/13/2023 6:49 PM 1.08 FXAUN --- not found ANTIFXALMWHE --- not found Creatinine 08/15/2023 5:56 AM 0.57 mg/dL Planned Sedation: Moderate Planned Sedation Medications: VERSED (midazolam) and fentanyl ASA Classification: Class III: Individual with multiple system disease or well controlled major system disease. Disease status limits daily activity. Mallampati Airway Assessment: Class I Uvula, faucial pillars, soft palate visible Patient or family history of adverse reactions involving sedation/anesthesia: No patient or family history of adverse reaction PRE-PROCEDURE VERIFICATION: Site of Procedure: not applicable Site Marked pre-procedure: N/A Pre-Procedure Pain Rating: See nursing notes Advanced Directives (Living will, health care power of attorney lawyer): none Patient Recent Code Status: Full Code Code Status For This Procedure: Full Code Royce Casarez MD Radiology [facility] Work Phone: 08-15-2023 History of Present illness Narrative Type of EEG Ordered: Prolonged 12-26 hour Patient: Carly Marcelino E#: [id number] Date of : 1940 Date started: 08/15/2023 Time started: 12:44PM Time ended: NA Technologist: Denis Ellis TChinmay, [facility] Referred by:Emily Barbosa MD Photic stimulation: deferred Hyperventilation: deferred Location: [facility] Main Handedness: unknown Hx of crani: Unknown 83 year old female presented with SDH, left sided katty holes 08/13, now AMS. EEG to assess. Prior to starting the test, the patient was verified by two identifiers (name and ). The study and application were both explained in accordance to the patient s level of consciousness. All questions pertaining to the test were answered to the best of the technologist s ability. documented in this encounter [facility] 08-15-2023 Consult note Formatting of th is note is different from the original. Dietitian vs DietaryTech: Dietary [employer] Nutrition Screening Reason for visit: LOS 5 or more days Assessment Admitting Diagnosis: AMS change SDH with midline shift High risk nutrition diagnosis: No - no points Past Medical History: No past medical history on file. Food Allergies: None Albumin: n/a - no points Skin Integrity: No pressure ulcers at this time - no points Fluid Accumulation: None Diet Order: NPO % PO Intake: NPO Intake Difficulties: None - 0 points Height-67 inches Weight Only Weight 07/29/2023 3:50 PM 185 lb 07/29/2023 4:48 PM 183 lb 11.2 oz 08/13/2023 2:05 AM 178 lb 3.2 oz BMI Screening value: 21 or greater - 0 points % Weight Loss: None Weight Loss Screening Value: None Comments: NPO-IVF. No food allergies. Weights with some decline noted. Monitor NPO status-diet advance. Number of Points: 0 Nutritional Plan of Care: Less than or equal to 6 points: At this time, patient is at low nutrition risk. DTR to provide routine follow up. Will continue to follow, BHARATI Zabala (Nutrition) Pager #[phone]. [facility] 08-15-2023 Consult note Formatting of th is note is different from the original. OCCUPATIONAL THERAPY PROGRESS SUMMARY Clinical update: 08/14/23 left sided katty holes for evacuation of SDH by Dr Li 08/15/23 plan for MMA embolization Patient seen from 0840 to 0903 on [facility] unit for 23 minute treatment. SUBJECTIVE: Patient Subjective/Goals Ow! Re: BLE movement OBJECTIVE: Pain: BLE , not rated Pain Relief Interventions Implemented: Rest, positioning Appearance: PIV, tele, BP cuff, pulse ox, katty hole incisions with DONAL, external catheter Behavior: drowsy, cooperative Cognition: decreased command follow from initial eval Minimal verbalizations, mostly accurate yes/no via head nod UE Status: new R UE weakness, poor gross grasp - unable to maintain grasp on walker handle during transfer Self Care: Assistance Level NA Dep Max Mod Min CG CS DS MS I Set-Up Cues Comment Feeding Grooming/ Hygiene x Wash face/hands Using L hand Cues to wash R side of face Bathing: Upper Body Bathing: Lower Body Dressing: Upper Body x Don gown Dressing: Lower Body x Don socks Toileting x External catheter Incontinence care Toilet Transfers Bed Transfer x2 Sit to stand from EOB Stand to sit in chair Bed Mobility x2 Supine to sit EOB Bed to chair x2 Few steps between bed and chair using walker Difficulty holding walker with R hand Assist to maneuver walker Patient remained seated in bedside chair end of session with chair alarm, cushion in place . Call cuevas and telephone within reach. Patient instructed to call for staff assist when ready to return to bed and for all mobility. RN aware of patient location and mobility status. Endurance for Self Care: Impaired Patient/Family Education: Instructed Patient in roles, goals, treatment plan: demonstrated poor verbal understanding. Orientation Discharge recommendations MMA procedure scheduled for today 08/15/2023 6 Clicks Daily Activity OT Help from another person Eating meals 1 Help from another person taking care of personal grooming 1 Help from another person bathing 1 Help from another person putting on and taking off regular upper body clothing 1 Help from another person putting on and taking off regular lower body clothing 1 Help from another person toileting 1 OT 6 Clicks Score 6 6 Click Score Guidelines: 1 - Unable = Total/Dependent Assist 2 - A lot = Max/Moderate Assist 3 - A little = Minimum/Contact Guard Assist/Supervision 4 - Non = Modified Wilson/Independent ASSESSMENT: Recommend further therapy services in a Skilled Rehab Setting once medically cleared. Will continue to follow patient while in hospital as appropriate. Goals (to be achieved by discharge from acute care): Patient will perform grooming with Close supervision Patient will dress upper body with Contact Guard Patient will perform bed mobility with Minimal assistance Patient will perform bed transfers with Contact Guard Patient will perform commode transfers with Contact Guard Patient will demonstrate safety awareness as evidenced by compliance with safe transfers and mobility PLAN: Continue with Plan as per Initial Evaluation. Aurea MOE, OTR/L Pager: [phone] Secure chat preferred NA = Not Assessed, I = Independent, MS = Modified Independent, Sup = Supervised, Set up = Physical Assistance for Set-up Only, Min = Minimal Assistance, Mod = Moderate Assistance, Max = Max assistance; Dep = Dependent; AROM = Active Range of Motion;PROM=Passive Range of Motion; MMT = Manual Muscle Test; Shld= Shoulder; Add = Adduction; Abd = Abduction T [facility] 08-15-2023 Plan of care note Problem: Routine Care: Goal: Patient care will be managed and maintained throughout hospital stay per unit specific routine care procedure Outcome: Progressing Problem: Altered Elimination: Goal: Establishment of normal bowel function will be achieved and maintained Outcome: Progressing Problem: Impaired Mobility: Goal: Ability to tolerate increased activity will improve and be maintained Outcome: Progressing Problem: VTE Prophylaxis: Goal: Will be free of DVT Outcome: Progressing Problem: Fluid and Electrolyte Imbalance: Goal: Adequate fluid and electrolyte balance will be achieved and maintained Outcome: Progressing Problem: Altered Neurological Status: Goal: Optimal neurological status will be maintained or regained Outcome: Progressing Problem: Acute Pain: Goal: Ability to identify pain intensity on a pain scale and rate it consistently will be achieved and maintained Outcome: Progressing Goal: Understanding of proper administration and use of medicines will be achieved Outcome: Progressing Problem: Safety: Goal: Patient will remain free of falls during hospital stay Outcome: Progressing Goal: Free from injury during hospitalization Outcome: Progressing [facility] 08-14-2023 Surgery Surgical operation note Neurosurgery Operative Note Name: CARLY MARCELINO MR#: [id number] [facility]#: [id number] Date of Procedure: 08/14/2023 ATTENDING SURGEON: Artem Li MD FIRST SURGEON: Misael Snowden MD. PREPROCEDURE DIAGNOSIS: Left vpypp-lo-khdftvu subdural hematoma with brain compression midline shift. POSTPROCEDURE DIAGNOSIS: Left evjlo-mu-dknxoxr subdural hematoma with brain compression midline shift. ANESTHESIA: General endotracheal anesthesia. PROCEDURES: 1. Left-sided bur holes x2 for evacuation of zkbxrvwn-ob-pdtrhit subdural hematoma. 2. Placement of left-sided subgaleal drain. OPERATIVE INDICATIONS: The patient is an 83-year-old female, who had suffered a previous head bleeds and was admitted several weeks prior with a fall. CT head demonstrated a left acute subdural hematoma. She was noted to be neurologically at her baseline and so she was managed conservatively. She then re-presented several weeks later with confusion. Repeat CT head was obtained, which demonstrated a new chronic subdural hematoma with a small residual subacute acute component with brain compression and midline shift. Given the imaging findings and neurological exam change, she was recommended for surgical intervention. All risks, benefits and alternatives of surgery discussed with the patient's daughter, who agreed to proceed with the operation. Informed consent was documented separately in the medical record. FINDINGS: Please see procedure note section for more details. OPERATIVE PROCEDURE: The patient was brought to the preoperative holding area, identified by Surgery, Nursing, Anesthesia and all agreed to proceed. She was then brought to the operating room. She was placed under general endotracheal anesthesia. Intravenous lines were placed. She was positioned with the left side of the head up on a donut with a shoulder bump and careful attention was paid toward pressure point and venous drainage. We marked out two left linear incisions, one in the frontal area and one in the parietal area and clipped hair over this area. The patient was then prepped and draped in the usual sterile fashion. A preoperative time-out was completed. The patient identified, equipment confirmed, procedure confirmed, and intravenous antibiotics were administered prior to incision. We made an incision over the left side of the skull in the frontal and parietal incision sites using a #10 scalpel blade. Soft tissues dissected using Bovie and bipolar electrocautery. We placed self-retaining retractors. Then, using a high-speed drill with thermometer maker bit, we performed one left frontal and one left parietal bur hole and then curetted away the bony edges using curettes. We then cauterized the dura using bipolar electrocautery and incised the dura in a cruciate fashion using a #11 scalpel blade. We then cauterized the dural edges back using bipolar electrocautery. We immediately encountered copious amounts of chronic subdural hematoma that was evacuated under high pressure. We then used irrigation in both bur holes and irrigated the subdural space until we obtained clear back wash out of both bur holes. We irrigated all quadrants until clear backwash was achieved. We were able to visualize the cortical surface of the brain, which appeared decompressed. We then tunneled a subgaleal drain, obtained meticulous hemostasis, and initiated closure. The galea was closed using interrupted 2-0 Vicryl sutures and the skin using a 3-0 Ethilon sutures. The drain was affixed using 3-0 Ethilon suture. Sterile dressing was applied. The patient was then extubated, found to be neurologically stable, and transferred back to the ICU. Dr. Li was present throughout the entire surgery and supervised Dr. Snowden throughout the entire operation. COUNTS: Correct and verified x2. ESTIMATED BLOOD LOSS: 50 mL. SPECIMENS: None. DRAINS: One Subgaleal Drain. IMPLANTS: None. COMPLICATIONS: None. MD JUSTIN Priest/Jo/Dict: 08/14/2023 14:10:59 TRANS: 08/14/2023 15:35:14 JOB: [id number] DictJob#: [id number] [facility] 08-14-2023 Consult note Formatting of th is note might be different from the original. Physical Therapy Note Attempted to see patient, however patient just returned from OR, not able to be seen per nurse. 24: s/p left sided katty holes for evacuation of subdural hematoma Will continue to follow. Vickie Pete, PT, DPT #[phone] [facility] 08-14-2023 Surgery Postoperative evaluation and management note Brief Operative Note MAIN OR Carly Marcelino 83 year old female Surgical Contact Serial Number: [id number] Preoperative Diagnosis: Pre-op Diagnosis * SDH (subdural hematoma) (HCC) [S06.5XAA] Postoperative Diagnosis: * SDH (subdural hematoma) (HCC) [S06.5XAA] Procedures: left sided katty holes for evacuation of subdural hematoma No data filed Surgeon(s): Surgeon(s): Artem Li MD Staff: Scrub: Edson Pierre RN Conference Center Manager Nurse: Shital Gonsalves RN; Amilcar Kasper RN Director Of Rehabilitation And Wellness: Binh Hart MD; Jolene Snowden MD Anesthesia: General Anesthesiologist: Leora Fleming MD Vamp Liner: Jeremiah Ochoa MD Anesthesia Staff: Lima Whittaker CAA Specimen(s): * No specimens in log * Estimated Blood Loss: 20cc Lines/Drains: Peripheral IV Access: 08/12/23 192 20 gauge Anterior;Right (Active) Site Assessment WNL;Dressing intact 08/14/23 1200 Infusion Status Port #1 Capped;Patent 08/14/23 1200 Peripheral IV Access: 08/12/23 2000 18 gauge x 1.88 inch Right Antecubital (Active) Site Assessment WNL;Dressing intact 08/14/23 1200 Infusion Status Port #1 Capped;Patent 08/14/231199 Peripheral IV Access: 08/14/23 1321 16 gauge Right Forearm (Active) Surgical Drain Angel Mosher -- Flat # 1 7 fr Left;Upper (Active) Temporarily Retained Foreign Object: Yes Location: Left scalp Object: drain Anticipated removal date: POD2 Findings: Chronic appearing blood evacuated under pressure. Satisfactory evacuation. Complications: None Status at end of surgery: Stable Activity: Ad Halley Surgical wound class: Yes, wound was clean. Patient Class: Inpatient. Is this a patient scheduled as an outpatient that needs to be admitted as an inpatient? No Dr. Li was present in the OR for the critical portion of the procedure and procedure sign-out. Signed by Jolene Snowden MD 08/14/2023 2:03 PM [facility] [facility] 08-14-2023 Progress note Formatting of t his note is different from the original. Blood Attestation: ATTESTATION OF INFORMED CONSENT FOR BLOOD: The transfusion of blood and/or blood components were discussed with the patient and/or legal district representative. The risks, benefits and alternatives were reviewed. Questions regarding blood transfusions were answered. The patient /or the patient s legal district representative agree with the plan for transfusion of blood and/or blood components. [facility] [employer] Work Phone: 08-14-2023 History and physical note Surgical Attestation H&P: I have reviewed the patient's History and Physical Examination. I have personally seen and evaluated the patient, repeating kuo portions. There is no significant interval change. Surgery is still indicated. Yes Consent reviewed and signed by patient/family: Yes Operative site verified and marked: Yes Binh Hart MD Neurosurgery, Resident Pager: [phone] 08/14/2023 - 11:32 AM Please page the on-call pager after 6pm and on weekends [facility] 08-14-2023 History and physical note Surgical Attestation H&P: I have reviewed the patient's History and Physical Examination. I have personally seen and evaluated the patient, repeating kuo portions. There is no significant interval change. Surgery is still indicated. Yes Consent reviewed and signed by patient/family: Yes Operative site verified and marked: Yes Binh Hart MD Neurosurgery, Resident Pager: [phone] 08/14/2023 - 11:32 AM Please page the on-call pager after 6pm and on weekends Images from the original note were not included. [facility] Department of Surgery Division of Trauma Surgery, Acute Care Surgery, Critical Care, and Gregory TRAUMA SURGERY HISTORY AND PHYSICAL Carly Marcelino [id number] BASIC INJURY INFORMATION: Level of activation: Category 2 Trauma Mode of transport: Ambulance: local EMS Mechanism of injury: Other: fall 2 weeks ago- admitted then discharged to rehab Complicating features: Not applicable Protective measures: Not applicable Date of Injury: 2 weeks ago Time of Injury: unknown Patient origin: Transfer from outside facility- [facility] HISTORY OF PRESENT INJURY: Carly Marcelino is a 83 year old female brought in as transfer from [facility] ED for subdural acute on chronic with new midline shift, AMS. Patient had GLF 2 weeks ago, had subdural and was admitted; no midline shift at that time, no AMS. Was doing well and discharged to rehab facility. Started on lovenox recently for DVT ppx. AMS noted on . Presented to ED today. Complaints of headache. No new injury. Loss of consciousness: No Initial interventions: None Hemodynamic status in ED: None applicable PRIMARY SURVEY: Airway: Intact Breathing: Normal Breath Sounds: Breath sounds equal bilaterally. Circulation: Pulses: Normal Skin: Warm Disability: Pupils: PERRL GCS: Best Eyes: 4 Best Verbal: 4 Best Motor: 6 Total: 14 SECONDARY SURVEY: Vitals: Pulse 82 Resp (!) 21 Neurologic: Alert and oriented to person/place only, confused, moves all extremities. HEENT: Head: No lacerations, bone step-offs, or abrasions; midface stable to palpation Eyes: PERRLA, conjunctiva/corneas without lesions. Ears: No hemotympanum Nose: No bloody drainage. Throat: Oral cavity without trauma. Neck: No midline tenderness, lacerations, or wounds Chest: No crepitus or pain with palpation; no abrasions or contusions; no gross deformities Pulmonary: Breath sounds clear, symmetrical; no wheezes, rales, or consolidation Cardiovascular: Pulses: Bilateral radial, DP pulses are normal. Abdomen: Non-distended; non-tender to palpation; no scars, lacerations, or contusions Rectal: Not performed. Pelvis/Perineum: Pelvis is stable to palpation Musculoskeletal: Back/Spine: No step-off or deformity noted, nontender midline Extremities: ROM normal, no gross deformities or abnormalities. Old ecchymosis on extremities. Large ecchymosis R knee Additional exam findings: Altered mental status PAST MEDICAL HISTORY: Asthma, HTN, HLD, DESTINY, cataracts PAST SURGICAL HISTORY: No past surgical history on file. PRE-ADMISSION MEDICATIONS: (Not in a hospital admission) Anti-platelet use: No Anti-coagulant use: Yes: lovenox (name) and 08/10 (date of last use) ALLERGIES: Allergies Allergen Reactions Hydantoins Anaphylactic Shock and Other Other Reaction(s): loss of muscle tone, Unknown Reaction, loss of muscle tone throat swells ,hives Hydrochlorothiazide Hyponatremia Valproic Acid Other Daughter states she almost , had an out of body experience Sertraline Other insomnia Amlodipine Base Other Hypertension, intolerance Carbamazepine Itching Tegretal caused itching Labetalol Other Intolerance Mastisol Rash Mometasone Furo-Formoterol Fum Other and Nausea Falls Nifedipine Other intolerance Nitrofurantoin Rash across nose/ cheeks SOCIAL HISTORY: Social History Socioeconomic History Marital status: Unknown Social Determinants of Health Financial Resource Strain: Low Risk (05/04/2023) Received from [facility] Overall Financial Resource Strain (CARDIA) Difficulty of Paying Living Expenses: Not hard at all Food Insecurity: No Food Insecurity (05/04/2023) Received from [facility] Hunger Vital Sign Worried About Running Out of Food in the Last Year: Never true Ran Out of Food in the Last Year: Never true Transportation Needs: No Transportation Needs (05/04/2023) Received from [facility] PRAPARE - Transportation Lack of Transportation (Medical): No Lack of Transportation (Non-Medical): No Living status: Assisted living- rehab facility Primary language: Martiniquais Functional status: Independent Impairments: None Assistive Devices Used: None FAMILY HISTORY: The patient's family history is non-contributory to this acute trauma. REVIEW OF SYSTEMS: Obtained and negative unless otherwise noted in HPI BASIC LABS 9.0 \ 10.0 / 272 / 29.5 \ CBC: 08/12/2023: 7:19 PM 138 106 21 / \ 91 4.1 25 0.73 BMP: 08/12/2023: 7:19 PM INR 0.96 RADIOLOGY: CT HEAD: Findings: acute on chronic left holohemispheric subdural hematoma with right sided midline shift rCT head 08/11 2301: Mixed density left hemispheric subdural hematoma measuring up to 2.2 cm at greatest thickness with increased mass effect upon the underlying brain parenchyma and resultant 1.2 cm left to right midline shift. Right lateral ventricular entrapment. ASSESSMENT: Carly Marcelino is a 83 year old female transferred here for subdural hemorrhage with midline shift, AMS. Baseline mental status is A&Ox3 without confusion per EMS. GCS14 and confused throughout ED stay. No other acute neuro deficits at this time. Hemodynamically stable. No new trauma or signs of other injuries. INJURIES: -acute on chronic left holohemispheric subdural hematoma with right sided midline shift -AMS PLAN: -250cc hypertonic saline given at prior ED -Protamine given in ED for lovenox reversal -NSGY consulted -Plan to admit to TICU with systemic based plan as below Neuro-: -NSGY following, no acute interventions; recs: -Q1H neurochecks -OR for L katty hole on 08/14/23 (NPO midnight 08/13) -Continue home keppra dose -SBP<170, plt>100, INR<1.4 -normonatremia, normothermia, euvolemia -SCDs only, no AC/antiplt -tylenol prn for headache Cardio: -no acute issues -continued home losartan, statin Respiratory: -no acute issues -continued home albuterol prn GI: -NPO for now until swallow assessed -colace, senna scheduled and prn dulcolax -zofran prn Renal: -renal function baseline -NS 75cc/hr mIVF while NPO -Daily BMP, Mg, Phos Heme: -no acute issues -Daily CBC ID: -no indication for abx at this time MSK: -no issues Preventative: -SCDs Code status: discussed with daughter by NSGY, may lean towards DNR in future so reassess with family/patient as able prior to OR and further interventions Tertiary: Completed no new imaging indicated Wound Care Instructions: No wound care needed Antibiotics: Inpatient antibiotics per plan above Final ED disposition: ICU Does patient have a traumatic brain injury? YES INITIAL TRIAGE OF TRAUMATIC BRAIN INJURY USING BRAIN INJURY GUIDELINES (BIG) For patients ? [address] evidence of Traumatic Brain Injury (EDH, SDH, SAH, Contusion, IPH, or IVH): Variables BIG-1 BIG-2 BIG-3 Mechanism of Injury Blunt Blunt Blunt or Penetrating GCS 14-15 12-13 <12 Intoxication No No or Yes No or Yes Prehospital Anticoagulant or Antiplatelet use No ASA only Any AC/AP excluding ASA Head CT Findings Skull Fracture No Nondisplaced Displaced SDH ?4mm 5-7mm ?8mm EDH ?4mm 5-7mm ?8mm IPH ?4mm, 1 location 5-7mm, 2 locations ?8mm, multiple locations SAH Trace Localized Scattered IVH No No Yes MLS No No Yes *Adopted from: Marcos Unger et al. (2017). Safety and Efficacy of Brain Injury Guidelines at a Level III Trauma Center. J Trauma Acute Care Surg. Vol (84)3, 483-489. Micky Mckeon et al. (2021). Validating the Brain Injury Guidelines: Results of an [place] [employer] of Trauma prospective multi-institutional trial. J Trauma Acute Care Surg. 2021;93(2):157-165. BIG Score: BIG 1 - with SDH (neurosurgery to be consulted) Patient discussed with Attending Trauma Surgeon, Dr. Cotter. Agnieszka Moctezuma DO Associated attestation - Gavino Cotter MD - 08/13/2023 3:23 AM EDT Teaching Physician Note: I saw and evaluated the patient. I personally obtained the kuo and critical portions of the history and physical exam. I reviewed the resident's documentation and discussed the patient with the resident. I agree with the resident's medical decision making as documented in the resident's note Gavino Cotter MD Division of Trauma, Critical Care, Gregory, and Emergency General Surgery Department of Surgery [facility] documented in this encounter [facility] 08-14-2023 Plan of care note Consent obtained for Left-sided [place] hole evacuations with Dr. Li as staff. Clarified code status with patient's daughter (Hebert Alvarez): patient is to remain full code both perioperatively and while in the unit at this time. Binh Hart MD Neurosurgery, Resident Pager: [phone] 08/14/2023 - 7:01 AM Please page the on-call pager after 6pm and on weekends [facility] 08-13-2023 Telephone encounter Note Transitions of Care SNF[facility]Acute [facility]hab [facility] Yes Call placed to SNF Cnc Operator: No Patient remains in SNF/Acute Rehab: No Patient discharged from SNF/Acute Rehab: Yes PT admitted to Inpatient at [facility] on 08/12/23 Case returned to Suction Plate Carrier Cleaner: No Patient remains in SNF greater than 30 days post hospital discharge: No Ronaldo Major case closed: Yes Will no longer follow in [facility] Will close case [facility] 08-13-2023 Miscellaneous Notes Transitions of Care SNF/Acute Rehab Weekly Review Chart review completed [facility] reviewed. SNF in [facility]: Yes Call placed to SNF Cnc Operator: No Patient remains in SNF/Acute Rehab: No Patient discharged from SNF/Acute Rehab: Yes PT admitted to Inpatient at on on 08/12/23 Case returned to Suction Plate Carrier Cleaner: No Patient remains in SNF greater than 30 days post hospital discharge: No [facility] [place] case closed: Yes Will no longer follow in [facility] Will close case documented in this encounter [facility] 08-13-2023 Plan of care note Problem: Routine Care: Goal: Patient care will be managed and maintained throughout hospital stay per unit specific routine care procedure Outcome: Progressing Problem: Altered Elimination: Goal: Establishment of normal bowel function will be achieved and maintained Outcome: Progressing Problem: Impaired Mobility: Goal: Ability to tolerate increased activity will improve and be maintained Outcome: Progressing Problem: VTE Prophylaxis: Goal: Will be free of DVT Outcome: Progressing Problem: Fluid and Electrolyte Imbalance: Goal: Adequate fluid and electrolyte balance will be achieved and maintained Outcome: Progressing Problem: Altered Neurological Status: Goal: Optimal neurological status will be maintained or regained Outcome: Progressing Problem: Acute Pain: Goal: Ability to identify pain intensity on a pain scale and rate it consistently will be achieved and maintained Outcome: Progressing Goal: Understanding of proper administration and use of medicines will be achieved Outcome: Progressing Problem: Safety: Goal: Patient will remain free of falls during hospital stay Outcome: Progressing Goal: Free from injury during hospitalization Outcome: Progressing T [facility] 08-13-2023 Consult note Associated Order (s): IP OCCUPATIONAL THERAPY SERVICE REQUEST OCCUPATIONAL THERAPY INITIAL EVALUATION Patient seen from 1018 to 1038 on 5 [facility] unit for 20 minutes. Co-evaluation with PT for safe handling of ICU lines/monitors and to advance mobility of medically complex patient. Evaluation and treatment Reason for Admit: 83 y/o F transferred from OSH with enlarged SDH, AMS, headache. Patient initially presented after fall resulting in SDH and was discharged to SNF 08/04/23 Diagnosis: Acute on chronic left hemispheric SDH with increased mass effect and left to right MLS Precautions/Activity Order: fall, full code, progressive mobility Procedures this admit: scheduled for burrhole evacuation of SDH 08/14/23 Past Medical and Surgical History: HTN, CAD, NSTEMI , carotid stenosis , arthritis, asthma, GERD, seizure disorder, cerebral amyloid angiopathy, prior SAH, DVT SUBJECTIVE: Patient Subjective: March Patient Identified Goal(s): none stated Home Living Situation- patient admitted from SNF, prior to initial admission patient lived alone Prior Functional Status: ambulates with walker , assist with IADL , drives Assistance Available at Home: PRN family assist Patient lives in a 1 story home 2 steps to enter or ramp Full Bathroom on 1 level Bedroom on 1 level. Equipment available at home: walker OBJECTIVE: Patient Identification: patient's id band and date of . Risks and benefits of occupational therapy: Patient informed of risks and benefits of treatment Appearance: IV, tele, BP cuff, pulse ox, external catheter Alertness: WFL Affect: flat Cooperation/Behavior: cooperative Communication: Impaired, some expressive aphasia noted. Able to respond yes/no accurately via head nod Pain: Pain rating: x/10, Location: bilateral hips Grimace, withdrawal Ow to PROM of hips by PT Pain Relief Interventions Implemented: Rest Self Care: Assistance Level Dep Max Mod Min CG CS DS MS I Set-Up Comment Feeding x Anticipated Patient is NPO Grooming/Hygiene x Wash face/hands Bathing:UB x Anticipated Bathing:LB x Anticipated Dressing:UB x Don gown Dressing: LB x Don socks Toileting x External catheter Incontinence care Transfers/Bed Mobility: Assistance Level Dep Max Mod Min CG CS DS MS I Set-Up Comment Toilet Transfers x2 Anticipated Bed Transfers x2 Sit to stand Stand to sit in chair Bed Mobility x2 Supine to sit EOB Ambulation x2 Few steps between bed and chair using walker Max V/T cues Assist to maneuver walker Assist for weight shifting Patient remained seated in bedside chair end of session with chair alarm and chair cushion in place . Call cuevas and telephone within reach. Patient instructed to call for staff assist when ready to return to bed and for all mobility. RN aware of patient location and mobility status. Endurance for Self Care: Impaired BP 153/76 Pulse 72 Temp 98.9 F (37.2 C) (Oral) Resp 20 Wt 178 lb 3.2 oz (80.8 kg) SpO2 100% BMI 27.91 kg/m Static Sitting Balance: Fair Dynamic Sitting Balance: Poor UE Motor: B/L shoulder 0-90 Distal ROM and strength WFL Vision/Perception: N/T Cognition: Orientation: Oriented to person, hospital, 2023 with choices Follows Commands: 1-step consistently Attention: WNL Memory: Impaired Problem Solving: Impaired Safety/Judgement: Impaired Sequencing: Impaired Other Specialized Tests: None Patient/Family Education: Instructed patient in roles of therapy, discharge recommendations 08/13/2023 6 Clicks Daily Activity OT Help from another person Eating meals 1 Help from another person taking care of personal grooming 2 Help from another person bathing 2 Help from another person putting on and taking off regular upper body clothing 2 Help from another person putting on and taking off regular lower body clothing 1 Help from another person toileting 1 OT 6 Clicks Score 9 6 Click Score Guidelines: 1 - Unable = Total/Dependent Assist 2 - A lot = Max/Moderate Assist 3 - A little = Minimum/Contact Guard Assist/Supervision 4 - Non = Modified Wilson/Independent ASSESSMENT: Recommend further therapy services in a Skilled Rehab Setting once medically cleared. Will continue to follow patient while in hospital as appropriate. Rehabilitation Potential: Good Problem List: decreased ADLs, decreased endurance, decreased functional transfers/mobility, impaired balance, decreased cognition, decreased home management tasks/IADLs, and decreased functional activity tolerance Goals (to be achieved by discharge from acute care): Patient will perform grooming with Close supervision Patient will dress upper body with Contact Guard Patient will perform bed mobility with Minimal assistance Patient will perform bed transfers with Contact Guard Patient will perform commode transfers with Contact Guard Patient will demonstrate safety awareness as evidenced by compliance with safe transfers and mobility PLAN: Carly Marcelino will be seen 1-3 times a week. Treatment to include: functional mobility training, ADL retraining, adaptive equipment / compensatory strategy training, and patient / family education and discharge planning, functional task simulation able to discuss the evaluation findings and treatment plan with the patient/family. The patient/family did participate in the development of plan and goals. Aurea Parra MOT, OTR/L Pager: [phone] Secure chat preferred NA = Not Assessed, I = Independent, MS = Modified Independent, Sup = Supervised, Set up = Physical Assistance for Set-up Only, Min = Minimal Assistance, Mod = Moderate Assistance, Max = Max assistance; Dep = Dependent; AROM = Active Range of Motion;PROM=Passive Range of Motion; MMT = Manual Muscle Test; UB = Upper Body; LB = Lower Body [facility] 08-13-2023 Consult note Associated Order (s): IP PHYSICAL THERAPY SERVICE REQUEST PHYSICAL THERAPY ACUTE EVALUATION Referral received, chart reviewed. Patient seen from 10:18 to 10:36 on 5W unit for 18 minutes. Eval + treat Eval + treat. Co-eval with OT. Patient required the skills of two therapists for safe mobility and high medical complexity of the patient. 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 No past surgical history on file. Identification was verified by patient verbalizing his/her name and date of . and patient's id band and date of . 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 steps to enter ? steps to bedroom/bathroom Assistance available: currently at [facility]. Per chart, patient has a daughter Equipment available: ? 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, Oxygen, IV, and Sequential Compression Devices (SCDs) Behavior: Impaired, Awake, pleasant & cooperative Oriented x 3 Follows 1 step commands consistently and with cues B LE coordination intact B LE sensation intact Pain: Site/Location: all over; Pain Scale: mild/10 Pain Relief Interventions Implemented: Positioning, Rest, and Notified Nurse Passive ROM: WFL Strength/Active ROM: Grossly at least 3-/5 throughout Mobility: Rolling to left: minimal assistance Sidelying to sit: minimal assistance Sitting balance: Good Sit to stand: minimal assistance Transfers: minimal assistance with R W Ambulation/Gait: Patient walked 5 ft with RW min A, slow pace, decreased (B) LE step lengths, difficulty maneuvering RW Endurance: Impaired Patient/Family Education: Instructed Patient in roles of therapy. Instructed Patient in roles, goals, treatment plan: demonstrated good verbal understanding. Instructed patient in Exercise Program for Ankle pumps x 10 reps Patient up in chair with call light in reach. Chair alarm intact. DME: With Patients permission ordered no equipment via [employer] Order. [facility] at [phone]. 08/13/2023 6 Clicks Basic Mobility PT Difficulty turning over in bed 2 Difficulty sitting down and standing up from a chair with arms 2 Difficulty moving from lying on back to sitting on the side of the bed 2 Help from another person moving to and from bed to a chair 2 Help from another person to walk in hospital room 3 Help from another person climbing 3-5 steps with a railing 1 PT 6 Clicks Score 12 6 Click Score Guidelines: 1 - Total = Requires total assistance, or cannot do at all. 2 - A lot = Requires a lot of help (maximun to moderate assistance) Can use assistive devices. 3 - A little = Requires a little help (supervision, minimal assistance) Can use assistive devices. 4 - None = Does not require any help and does the activity independently. Can use assistive devices. ASSESSMENT: Carly Marcelino is a 83 year old female s/p AMS and (L) SDH presents with aphasia, decreased strength and decreased endurance, causing patient difficulty with bed mobility, transfers and ambulation quality/tolerance. Patient would benefit from acute PT services of gait training, therex, and theract to improve patient ambulation quality/tolerance, transfer skills and strengthening to enhance functional mobility and safety. Recommend further therapy services in a Snf Setting once medically cleared. Will continue to follow patient while in hospital as appropriate. Problems: Pain Decreased ROM/strength Decreased functional mobility Decreased endurance Decreased balance Decreased education in exercise/precautions Decreased cognition/behavior Impaired safety awareness Rehabilitation Potential: Fair Goals (to be achieved by discharge from acute care): Patient will achieve acceptable level of pain control to allow participation in therapy. Patient will increase bed mobility to contact guard assistance Patient will perform sit to/from stand with rolling walker with contact guard assistance Patient will ambulate 50 feet with rolling walker with contact guard assistance Patient will increase ROM/Strength/Endurance/Balance to allow for above goals. Patient/Family independent with exercise program/precautions. PLAN OF CARE: Frequency: Patient to be seen 1-3 times a week Interventions: Functional mobility ROM/Strengthening Home exercise program Discharge planning and equipment ordering as needed Patient /Family education The evaluation findings and treatment plan were discussed with the patient/family. The patient/family indicated understanding and agreement with the plan. Vickie Pete, PT, DPT #[id number] NA = Not Assessed, I = Independent, MS = Modified Independent, Sup = Supervised, Set up = Physical Assistance for Set-up Only, Min = Minimal Assistance, Mod = Moderate Assistance, Max = Max assistance; Dep = Dependent; AROM = Active Range of Motion; PROM = Passive Range of Motion; MMT = Manual Muscle Test; LE = Lower Extremity [facility] 08-13-2023 Plan of care note Division of Trauma, Surgical Critical Care, EGS Ticket to Roll Note . Report called to Dr Richie Emmanuel who is the RUP The patient is transferring from ED, room # 1, to TICU, room # 210. The patient was added to the Trauma Surgery list. Agnieszka Moctezuma DO RUP = Receiving unit provider RNF = Regular nursing floor [facility] 08-13-2023 Consult note Formatting of th is note is different from the original. Images from the original note were not included. NEUROSURGERY CRANIAL TRAUMA H&P Patient Name: Carly Marcelino Primary Care Physician: No primary care provider on file. CONSULTED BY: Trauma CONSULTED FOR: Mixed density L hemispheric SDH CHIEF COMPLAINT: S/p AMS HPI: Pt is an 83 year old female with PMH of HTN, CAD (NSTEMI, stent in RCA, takes ASA 81), carotid stenosis brought in as transfer from OSH ED s/p AMS. Upon arrival to OSH a CTH was conducted which shows a mixed density left hemispheric subdural hematoma measuring up to 2.2 cm at greatest thickness with increased mass effect upon the underlying brain parenchyma and resultant 1.2 cm left to right midline shift for which NSGY was consulted. Of note, patient had GLF 2 weeks ago, was found to have a subdural and was admitted; no midline shift at that time, no AMS. Was doing well and discharged to rehab facility. Started on lovenox recently for DVT ppx and AMS was noted to start on . Presented to ED today with complaints of WISDOM. NSGY consulted for further recs and management. Antiplatelet/Anticoagulant: ASA (currently being held) Previous TBI:Yes PAST MEDICAL HISTORY: No past medical history on file. PAST SURGICAL HISTORY: No past surgical history on file. FAMILY HISTORY: No family history on file. SOCIAL HISTORY: Social History Occupational History Not on file Tobacco Use Smoking status: Not on file Smokeless tobacco: Not on file Substance and Sexual Activity Alcohol use: Not on file Drug use: Not on file Sexual activity: Not on file MEDICATIONS: ALLERGIES: Allergies Allergen Reactions Hydantoins Anaphylactic Shock and Other Other Reaction(s): loss of muscle tone, Unknown Reaction, loss of muscle tone throat swells ,hives Hydrochlorothiazide Hyponatremia Valproic Acid Other Daughter states she almost , had an out of body experience Sertraline Other insomnia Dilantin [Phenytoin] Amlodipine Base Other Hypertension, intolerance Carbamazepine Itching Tegretal caused itching Labetalol Other Intolerance Mastisol Rash Mometasone Furo-Formoterol Fum Other and Nausea Falls Nifedipine Other intolerance Nitrofurantoin Rash across nose/ cheeks COMPLETE REVIEW OF SYSTEMS: Unable to conduct 04/13 patient's exam; patient is confused LABS: CBC/PT/INR WBC RBC Hgb Hct MCV RDW Plt PT aPTT INR 08/12/231918 9.0 3.23 10.0 29.5 91 14.2 272 08/12/231918 -- Comment: CLOT This is a corrected result. Previous result on 08/12/2023 at 2020 EDT was 0.96 [C] [C] - Corrected Result Basic Metabolic Panel Na K Cl CO2 Gap Glu BUN Cr Ca Mg PO4 08/12/231918 138 4.1 106 25 11 91 21 0.73 8.8 NEURO EXAM: A&Ox1-2 (place with choices, not year) PERRL EOMI FS TM BUE: 5/, no drift BLE: 07/14 PHYSICAL EXAM: Vitals: 08/13/23 0030 BP: 123/75 Pulse: 80 Resp: 18 Temp: SpO2: 94% General appearance: Alert, pleasant, no distress. Skin: Skin color normal. No rashes or lesions. Head: Normocephalic. No masses, lesions. Eyes: Conjunctivae not injected /corneas clear. Ears: External ears normal. Nose/Sinuses: External nose normal. Neck: Neck supple. No adenopathy. Lungs: No acute respiratory distress. Heart: Regular rate. RADIOLOGY: CTH: Mixed density left hemispheric subdural hematoma measuring up to 2.2 cm at greatest thickness with increased mass effect upon the underlying brain parenchyma and resultant 1.2 cm left to right midline shift. Right lateral ventricular entrapment [place] CT SCORE: 1. Basal cisterns: 1: Compressed 2. Midline shift: 1: Greater than 5 mm 3. Epidural mass lesion: 1: Absent 4. Intraventricular blood or traumatic SAH: 0: Absent Total Score: 3 (Calculated sum + 1) Six Month Mortality: Score 1: 0% Score 2: 7% Score 3: 16% Score 4: 26% Score 5: 53% Score 6: 61% 1. TBI sub-type: SDH: Greater than or equal to 1 cm 2. Laterality: Left 3. Location: Convexity 4. Pupillary response: Both reactive 5. Associated conditions: None 6. Loss of consciousness: None ASSESSMENT/PLAN: Pt is an 83 year old female with PMH of HTN, CAD (NSTEMI, stent in RCA, takes ASA 81), carotid stenosis brought in as transfer from OSH ED s/p AMS. Upon arrival to OSH a CTH was conducted which shows a mixed density left hemispheric subdural hematoma measuring up to 2.2 cm at greatest thickness with increased mass effect upon the underlying brain parenchyma and resultant 1.2 cm left to right midline shift for which NSGY was consulted. Of note, patient had GLF 2 weeks ago, was found to have a subdural and was admitted; no midline shift at that time, no AMS. Was doing well and discharged to rehab facility. Started on lovenox recently for DVT ppx and AMS was noted to start on . Presented to ED today with complaints of WISDOM. NSGY consulted for further recs and management. -ICU admission under trauma service -Q1 neuro checks -OR for L katty hole evac on Sunday 08/13 (consented with patient's mPOA/ daughter) -NPO midnight prior to OR -Pre-op labs (CBC, BMP, PT/INR, PTT, T&S) -Continue home Keppra -SBP <170 per trauma guidelines -Hold home ASA -Hold all antiplatelets/anticoagulants -Plts >100, INR <1.4 -Normonatremia, normothermia, euvolemia -SCDs only at this time for DVT prophylaxis. Hold SQH at this time. -No acute neurosurgical intervention. Will continue to follow. Patient seen within 30 minutes of initial consultation. Recommendations provided directly to the trauma service. Above plan was discussed with the (Chief) within 30 minutes of consult and discussed with the staff Dr. Dalton Galvin PA-C Neurosurgery Pager: [phone] Split/Shared Documentation I approve the management plan for this patient and take responsibility for the plan as documented. Independent Interpretation of Tests Performed by Another Physician/ASH: I personally performed, reviewed, and interpreted CTH with findings of L mixed density SDH with MLS. Vignesh Galvin PA-C [facility] 08-12-2023 Physician Emergency department Note ED RESIDENT CONTINUATION OF CARE NOTE Please see previous provider's note for full history and physical exam. TRAV for LG 11:51 PM Briefly, Carly Marcelino is a 83 year old F CAT2 transfer w/ fall several weeks ago had SDH sent to SNF and had worsening mental status. Rpt CT w/ expanding SDH and MLS. No new trauma. On lovenox, last this AM. 3% saline given in transfer. Rpt CT done awaiting NSGY recs. Course: ED Course as of 08/12/23 2351 Sun Aug 12, 20232023 Complete Blood Count W/Diff(!): WBC 9.0 RBC 3.23(!) Hemoglobin 10.0(!) Hematocrit 29.5(!) MCV 91 MCH 30.8 MCHC 33.7 Platelet 272 RDW-CV% 14.2 MPV 6.9(!) Neutrophils 80.6(!) Neutrophil # 7.27 Lymphocytes 10.6(!) Lymph Absolute 0.96(!) Monocytes 6.2 Monocyte Absolute 0.56 Eosinophil 2.2 Eosinophil Absolute 0.20 Basophils 0.5 Basophil # 0.05 MDW 23(!) No clinically significant leukocytosis, leukopenia, thrombocytosis, thrombocytopenia Mild anemia [LG] 2049 BASIC METABOLIC PANEL(aka BMP) [CH8]: Glucose 91 Sodium 138 Potassium 4.1 Carbon Dioxide 25 Chloride 106 BUN 21 Creatinine 0.73 Calcium 8.8 Anion Gap 11 Estimated GFR 81 No clinically significant electrolyte abnormalities. Normal renal function. [LG] 2049 ETHANOL, SERUM: Ethanol <10 No intox [LG] 2049 LACTATE, SERUM: Lactate 1.0 Normal [LG] 2327 CT HEAD W/O CONTRAST IMPRESSION: Mixed density left hemispheric subdural hematoma measuring up to 2.2 cm at greatest thickness with increased mass effect upon the underlying brain parenchyma and resultant 1.2 cm left to right midline shift. Right lateral ventricular entrapment. [LG] ED Course User Index [LG] Bernie Caldwell MD Interval Progress: Under my care, patient was well-appearing, HD stable, afebrile, and saturating well on RA. Rpt CTH concerning for worsening CTH. Patient admitted to TICU with NSGY to perform [place] Hole. The clinical suspicion, plan of care, and management were discussed with the patient, and the patient agreed with the plans. Patient was admitted in stable condition per previous provider's recommendations. Seven Diehl MD [employer] Work Phone: 08-12-2023 Emergency department Note ED RESIDENT CONTINUATION OF CARE NOTE Please see previous provider's note for full history and physical exam. TRAV for LG 11:51 PM Briefly, Carly Marcelino is a 83 year old F CAT2 transfer w/ fall several weeks ago had SDH sent to SNF and had worsening mental status. Rpt CT w/ expanding SDH and MLS. No new trauma. On lovenox, last this AM. 3% saline given in transfer. Rpt CT done awaiting NSGY recs. Course: ED Course as of 08/12/23 2351 Sun Aug 12, 20232048 Complete Blood Count W/Diff(!): WBC 9.0 RBC 3.23(!) Hemoglobin 10.0(!) Hematocrit 29.5(!) MCV 91 MCH 30.8 MCHC 33.7 Platelet 272 RDW-CV% 14.2 MPV 6.9(!) Neutrophils 80.6(!) Neutrophil # 7.27 Lymphocytes 10.6(!) Lymph Absolute 0.96(!) Monocytes 6.2 Monocyte Absolute 0.56 Eosinophil 2.2 Eosinophil Absolute 0.20 Basophils 0.5 Basophil # 0.05 MDW 23(!) No clinically significant leukocytosis, leukopenia, thrombocytosis, thrombocytopenia Mild anemia [LG] 2049 BASIC METABOLIC PANEL(aka BMP) [CH8]: Glucose 91 Sodium 138 Potassium 4.1 Carbon Dioxide 25 Chloride 106 BUN 21 Creatinine 0.73 Calcium 8.8 Anion Gap 11 Estimated GFR 81 No clinically significant electrolyte abnormalities. Normal renal function. [LG] 2049 ETHANOL, SERUM: Ethanol <10 No intox [LG] 2049 LACTATE, SERUM: Lactate 1.0 Normal [LG] 2328 CT HEAD W/O CONTRAST IMPRESSION: Mixed density left hemispheric subdural hematoma measuring up to 2.2 cm at greatest thickness with increased mass effect upon the underlying brain parenchyma and resultant 1.2 cm left to right midline shift. Right lateral ventricular entrapment. [LG] ED Course User Index [LG] Bernie Caldwell MD Interval Progress: Under my care, patient was well-appearing, HD stable, afebrile, and saturating well on RA. Rpt CTH concerning for worsening CTH. Patient admitted to TICU with NSGY to perform [place] Hole. The clinical suspicion, plan of care, and management were discussed with the patient, and the patient agreed with the plans. Patient was admitted in stable condition per previous provider's recommendations. Seven Diehl MD Procedure note: Ultrasound Guided IV Placement Indication for procedure: staff attempted to gain peripheral IV access multiple times without success Informed consent, after discussion of the risks, benefits, and alternatives to the procedure, was obtained and the consent form was signed by patient . A timeout to verify the correct patient, procedure, and site was performed immediately prior to the procedure. The patient was identified using two patient identifiers: Yes. With aseptic technique a(n) 18 1.88 inch angiocath was placed under direct visualization into the right basilic vein with good blood return and flush. No complications were noted and the patient tolerated the procedure well. Image with needle in vessel was attached to chart. This exam is performed by an ultrasound credentialed clinician and was used, based on medical necessity, for clinical care. A separate training examination may have been performed but is not included in any documentation of this study. Track Patrol: John Medina [facility]; 83 yo female fall two weeks ago; family noticed change in mentation 08/09/23 and brought her back to [facility]; scans there showed midline shift of the brain EMERGENCY DEPARTMENT - VISIT NOTE HISTORY OF PRESENT ILLNESS No chief complaint on file. Room Service Manager: not needed - patient preferred language is Martiniquais. 08/12/2023, 7:20 PM. Category: 2 The patient was brought to the ED by [facility]. The history is provided by [facility] personnel. Carly Marcelino is a 83 year old female brought to the ED s/p subdural hematoma. [facility] personnel report that the patient had a fall 2 weeks prior to which she was transported to [facility]. They note that she was found to have a left acute subdural hematoma at that time that was stable. They report that she was discharged and transferred to [facility]. They endorse that the patient's family noticed a decline in the patient's mental status 3 days prior and that the patient began to complain of a WISDOM. They note that the patient was transported to [facility] ED today where imaging showed an expansion of her left subdural hematoma with midline shift. They endorse that the patient has a GCS of 14 however is 15 at baseline. They report that the patient received 250 mL of hypertonic solution. They note that the patient's last blood pressure was 150 - 160 systolic, her last heart rate was 70, and her last ETCO2 was 35 en route. Last lovenox dose this AM at rehab. Takes 30 mg BID -- REVIEW OF SYSTEMS ---- As above ------ PAST HISTORY --------- Pertinent Past History: No pertinent past medical history Pertinent Family History: No pertinent past family history Pertinent Social History: No pertinent past social history ---- PHYSICAL EXAM BP 149/73 Pulse 83 Temp 97.8 F (36.6 C) (Oral) Resp (!) 21 SpO2 96% Airway: Intact Breath sounds: B/l breath sounds, breathing spontaneous and unlabored Circulation: Radial, femoral, DP and PT pulses intact b/l Disability: motor and sensory grossly intact in the uppers and lowers b/l; GCS of 14. Constitutional: Awake, alert, in no distress; vital signs reviewed HENT: No cephalohematomas, midface is stable, no dental malocclusions, no nasal septal hematoma, no oropharyngeal trauma, no hemotympanum bilaterally. Eyes: PERRLA, EOMI, no conjunctival hemorrhage or orbital trauma Neck: No C-spine step-offs or deformities; trachea midline Chest: No deformities, no crepitus, b/l chest rise. Cardiac: Regular rate and rhythm Abdomen: Soft, non-distended. No abrasions. There is an area of old ecchymosis over the LLQ. Pelvis: Pelvis is stable. Extremities: RUE: Full ROM, no gross deformity LUE: Full ROM, no gross deformity. There is an area of ecchymosis over the left forearm and skin tears over the hands. RLE: Full ROM, no gross deformity. There is an area of ecchymosis over the medial knee. LLE: Full ROM, no gross deformity. There is an area of ecchymosis surrounding the left knee. Back: No T/L/S spine step off, or deformity; no abrasions to back Neuro: Motor and sensory grossly intact in the uppers and lowers b/l Skin: Warm, dry, as above Psych: Cooperative - ED COURSE IN [place] - 7:08 PM - The patient was brought to the [facility]. 7:12 PM - BP 148/79, HR 81, SpO2 100, RR 18 7:14 PM - BP 148/79, HR 83, RR 19 7:16 PM - BP 157/83, HR 82, SpO2 85, RR 14 7:17 PM - Started 500 mL hypertonic solution drip at 900 mL an hour. Consultations: Trauma is at bedside and assisted with evaluation and formulation of plan. MEDICAL DECISION MAKING and ED COURSE Review of External (Non- ED) Notes: Discharge summary from last admit reviewed: Pt with PMHx of SAH, HTN, HLD, b/L JANETTE, CAD s/p LETICIA to RCA, prior DVT, cerebral amyloid angiopathy, non-traumatic SAH, epilepsy, asthma presented as a transfer from [facility] following mechanical fall on 07/28. OSH imaging with ICH with MLS. (+) ASA. Trauma workup found L SDH with 4mm MLS, nasal septal deviation. Admitted to TICU for frequent neurochecks. Pt initially altered and agitated, this improved and was dc to SNF Discussion with External Provider: Trauma and NSGY evaluating, pending final recs ED prescription drug management decision making: Medications prescribed - see visit medications. Evaluated by EM attending Ross Castorena Interpretation of Results: See ED Course Course: ED Course as of 08/13/23 0020 [place] Aug 12, 20232048 Complete Blood Count W/Diff(!): WBC 9.0 RBC 3.23(!) Hemoglobin 10.0(!) Hematocrit 29.5(!) MCV 91 MCH 30.8 MCHC 33.7 Platelet 272 RDW-CV% 14.2 MPV 6.9(!) Neutrophils 80.6(!) Neutrophil # 7.27 Lymphocytes 10.6(!) Lymph Absolute 0.96(!) Monocytes 6.2 Monocyte Absolute 0.56 Eosinophil 2.2 Eosinophil Absolute 0.20 Basophils 0.5 Basophil # 0.05 MDW 23(!) No clinically significant leukocytosis, leukopenia, thrombocytosis, thrombocytopenia Mild anemia [LG] 2049 BASIC METABOLIC PANEL(aka BMP) [CH8]: Glucose 91 Sodium 138 Potassium 4.1 Carbon Dioxide 25 Chloride 106 BUN 21 Creatinine 0.73 Calcium 8.8 Anion Gap 11 Estimated GFR 81 No clinically significant electrolyte abnormalities. Normal renal function. [LG] 2049 ETHANOL, SERUM: Ethanol <10 No intox [LG] 2049 LACTATE, SERUM: Lactate 1.0 Normal [LG] 2327 CT HEAD W/O CONTRAST IMPRESSION: Mixed density left hemispheric subdural hematoma measuring up to 2.2 cm at greatest thickness with increased mass effect upon the underlying brain parenchyma and resultant 1.2 cm left to right midline shift. Right lateral ventricular entrapment. [LG] ED Course User Index [LG] Bernie Caldwell MD Therapeutics: Medications sodium chloride 3 % iv infusion (0 mL IV Stop 08/12/231954) Medical Decision Making: Carly Marcelino is a 83 year old female presenting to the ED as a category 2 trauma transfer s/p SDH. Primary and secondary assessment as above. Labs reviewed and interpreted in ED course above. Pt with known worsening SDH, received 500 mL of 3% saline. NSGY requested stability scan which shows worsening mixed density left hemispheric subdural hematoma measuring up to 2.2 cm at greatest thickness with increased mass effect upon the underlying brain parenchyma and resultant 1.2 cm left to right midline shift and right lateral ventricular entrapment. Low suspicion for other intrathoracic or intraabdominal trauma. Pending trauma and nsgy recs, will need admit, likely TICU, signed out to Dr. Diehl. IMPRESSION AND DISPOSITION Clinical Impression Diagnosis Comment Altered mental status, unspecified altered mental status type [R41.82] SDH (subdural hematoma) (HCC) [S06.5XAA] Dispo: Pending Bernie Caldwell MD ---- SCRIBE ATTESTATION --- 08/13/2023, 12:20 AM. This note is prepared by Janny Robles acting as Scribe for Bernie Caldwell MD All medical record entries made by the Scribe were at my direction and personally dictated by me. I have reviewed the record and confirm that the note above accurately reflects all work, treatment, procedures, and medical decision making performed by me. Bernie Caldwell MD. Note has been documented by Janny Robles on 08/12/2023 Associated attestation - Ross Castorena MD - 08/20/2023 8:00 PM EDT ATTENDING NOTE I saw and evaluated the patient. I personally obtained the kuo and critical portions of the history and physical exam. I reviewed/revised the resident's documentation and discussed the patient with the resident. I agree with the resident's medical decision making as documented in the resident's note. Ross Castorena MD documented in this encounter [facility] 08-12-2023 History of Present illness Narrative CAT 2 83F presented to ED via [facility] as transfer from [facility] s/p fall 2 weeks ago presented with new brain bleed w/ shift Pt admitted to [facility] SNF upon dc from 08/03. Family had her brought to [facility] from [facility] due to decline in mental status. SW called pt's dtr Hebert Alvarez [phone] she stated that she will come to the hospital to see the pt tomorrow PLAN: Pending ILIANA Ortiz documented in this encounter [facility] 08-12-2023 Emergency department Note Procedure note: Ultrasound Guided IV Placement Indication for procedure: staff attempted to gain peripheral IV access multiple times without success Informed consent, after discussion of the risks, benefits, and alternatives to the procedure, was obtained and the consent form was signed by patient . A timeout to verify the correct patient, procedure, and site was performed immediately prior to the procedure. The patient was identified using two patient identifiers: Yes. With aseptic technique a(n) 18 1.88 inch angiocath was placed under direct visualization into the right basilic vein with good blood return and flush. No complications were noted and the patient tolerated the procedure well. Image with needle in vessel was attached to chart. This exam is performed by an ultrasound credentialed clinician and was used, based on medical necessity, for clinical care. A separate training examination may have been performed but is not included in any documentation of this study. Track Patrol: John Medina [facility] 08-12-2023 Emergency department Note Pt transferred from [facility]; 83 yo female fall two weeks ago; family noticed change in mentation 08/09/23 and brought her back to [facility]; scans there showed midline shift of the brain T [facility] 08-12-2023 Physician Emergency department Note EMERGENCY DEPARTMENT - VISIT NOTE HISTORY OF PRESENT ILLNESS No chief complaint on file. Room Service Manager: not needed - patient preferred language is Martiniquais. 08/12/2023, 7:20 PM. Category: 2 The patient was brought to the ED by [facility]. The history is provided by [facility] personnel. Carly Marcelino is a 83 year old female brought to the ED s/p subdural hematoma. [employer] personnel report that the patient had a fall 2 weeks prior to which she was transported to [facility]. They note that she was found to have a left acute subdural hematoma at that time that was stable. They report that she was discharged and transferred to [facility]. They endorse that the patient's family noticed a decline in the patient's mental status 3 days prior and that the patient began to complain of a WISDOM. They note that the patient was transported to [facility] ED today where imaging showed an expansion of her left subdural hematoma with midline shift. They endorse that the patient has a GCS of 14 however is 15 at baseline. They report that the patient received 250 mL of hypertonic solution. They note that the patient's last blood pressure was 150 - 160 systolic, her last heart rate was 70, and her last ETCO2 was 35 en route. Last lovenox dose this AM at rehab. Takes 30 mg BID -- REVIEW OF SYSTEMS ---- As above ------ PAST HISTORY --------- Pertinent Past History: No pertinent past medical history Pertinent Family History: No pertinent past family history Pertinent Social History: No pertinent past social history ---- PHYSICAL EXAM BP 149/73 Pulse 83 Temp 97.8 F (36.6 C) (Oral) Resp (!) 21 SpO2 96% Airway: Intact Breath sounds: B/l breath sounds, breathing spontaneous and unlabored Circulation: Radial, femoral, DP and PT pulses intact b/l Disability: motor and sensory grossly intact in the uppers and lowers b/l; GCS of 14. Constitutional: Awake, alert, in no distress; vital signs reviewed HENT: No cephalohematomas, midface is stable, no dental malocclusions, no nasal septal hematoma, no oropharyngeal trauma, no hemotympanum bilaterally. Eyes: PERRLA, EOMI, no conjunctival hemorrhage or orbital trauma Neck: No C-spine step-offs or deformities; trachea midline Chest: No deformities, no crepitus, b/l chest rise. Cardiac: Regular rate and rhythm Abdomen: Soft, non-distended. No abrasions. There is an area of old ecchymosis over the LLQ. Pelvis: Pelvis is stable. Extremities: RUE: Full ROM, no gross deformity LUE: Full ROM, no gross deformity. There is an area of ecchymosis over the left forearm and skin tears over the hands. RLE: Full ROM, no gross deformity. There is an area of ecchymosis over the medial knee. LLE: Full ROM, no gross deformity. There is an area of ecchymosis surrounding the left knee. Back: No T/L/S spine step off, or deformity; no abrasions to back Neuro: Motor and sensory grossly intact in the uppers and lowers b/l Skin: Warm, dry, as above Psych: Cooperative - ED COURSE [place] - 7:08 PM - The patient was brought to the [facility]. 7:12 PM - BP 148/79, HR 81, SpO2 100, RR 18 7:14 PM - BP 148/79, HR 83, RR 19 7:16 PM - BP 157/83, HR 82, SpO2 85, RR 14 7:17 PM - Started 500 mL hypertonic solution drip at 900 mL an hour. Consultations: Trauma is at bedside and assisted with evaluation and formulation of plan. MEDICAL DECISION MAKING and ED COURSE Review of External (Non- ED) Notes: Discharge summary from last admit reviewed: Pt with PMHx of SAH, HTN, HLD, b/L JANETTE, CAD s/p LETICIA to RCA, prior DVT, cerebral amyloid angiopathy, non-traumatic SAH, epilepsy, asthma presented as a transfer from [facility] following mechanical fall on 07/28. OSH imaging with ICH with MLS. (+) ASA. Trauma workup found L SDH with 4mm MLS, nasal septal deviation. Admitted to TICU for frequent neurochecks. Pt initially altered and agitated, this improved and was dc to SNF Discussion with External Provider: Trauma and NSGY evaluating, pending final recs ED prescription drug management decision making: Medications prescribed - see visit medications. Evaluated by EM attending Ross Castorena Interpretation of Results: See ED Course Course: ED Course as of 08/13/23 0020 Sun Aug 12, 20232048 Complete Blood Count W/Diff(!): WBC 9.0 RBC 3.23(!) Hemoglobin 10.0(!) Hematocrit 29.5(!) MCV 91 MCH 30.8 MCHC 33.7 Platelet 272 RDW-CV% 14.2 MPV 6.9(!) Neutrophils 80.6(!) Neutrophil # 7.27 Lymphocytes 10.6(!) Lymph Absolute 0.96(!) Monocytes 6.2 Monocyte Absolute 0.56 Eosinophil 2.2 Eosinophil Absolute 0.20 Basophils 0.5 Basophil # 0.05 MDW 23(!) No clinically significant leukocytosis, leukopenia, thrombocytosis, thrombocytopenia Mild anemia [LG] 2049 BASIC METABOLIC PANEL(aka BMP) [CH8]: Glucose 91 Sodium 138 Potassium 4.1 Carbon Dioxide 25 Chloride 106 BUN 21 Creatinine 0.73 Calcium 8.8 Anion Gap 11 Estimated GFR 81 No clinically significant electrolyte abnormalities. Normal renal function. [LG] 2049 ETHANOL, SERUM: Ethanol <10 No intox [LG] 2049 LACTATE, SERUM: Lactate 1.0 Normal [LG] 2327 CT HEAD W/O CONTRAST IMPRESSION: Mixed density left hemispheric subdural hematoma measuring up to 2.2 cm at greatest thickness with increased mass effect upon the underlying brain parenchyma and resultant 1.2 cm left to right midline shift. Right lateral ventricular entrapment. [LG] ED Course User Index [LG] Bernie Caldwell MD Therapeutics: Medications sodium chloride 3 % iv infusion (0 mL IV Stop 08/12/231954) Medical Decision Making: Carly Marcelino is a 83 year old female presenting to the ED as a category 2 trauma transfer s/p SDH. Primary and secondary assessment as above. Labs reviewed and interpreted in ED course above. Pt with known worsening SDH, received 500 mL of 3% saline. NSGY requested stability scan which shows worsening mixed density left hemispheric subdural hematoma measuring up to 2.2 cm at greatest thickness with increased mass effect upon the underlying brain parenchyma and resultant 1.2 cm left to right midline shift and right lateral ventricular entrapment. Low suspicion for other intrathoracic or intraabdominal trauma. Pending trauma and nsgy recs, will need admit, likely TICU, signed out to Dr. Diehl. IMPRESSION AND DISPOSITION Clinical Impression Diagnosis Comment Altered mental status, unspecified altered mental status type [R41.82] SDH (subdural hematoma) ([facility]) [S06.5XAA] Dispo: Pending Bernie Caldwell MD ---- SCRIBE ATTESTATION --- 08/13/2023, 12:20 AM. This note is prepared by Janny Robles acting as Scribe for Bernie Caldwell MD All medical record entries made by the Scribe were at my direction and personally dictated by me. I have reviewed the record and confirm that the note above accurately reflects all work, treatment, procedures, and medical decision making performed by me. Bernie Caldwell MD. Note has been documented by Janny Robles on 08/12/2023 Associated attestation - Ross Castorena MD - 08/20/2023 8:00 PM EDT ATTENDING NOTE I saw and evaluated the patient. I personally obtained the kuo and critical portions of the history and physical exam. I reviewed/revised the resident's documentation and discussed the patient with the resident. I agree with the resident's medical decision making as documented in the resident's note. Ross Castorena MD [facility] Work Phone: 08-12-2023 History and physical note Images from the original note were not included. [facility] Department of Surgery Division of Trauma Surgery, Acute Care Surgery, Critical Care, and Gregory TRAUMA SURGERY HISTORY AND PHYSICAL Carly Marcelino [id number] BASIC INJURY INFORMATION: Level of activation: Category 2 Trauma Mode of transport: Ambulance: local EMS Mechanism of injury: Other: fall 2 weeks ago- admitted then discharged to rehab Complicating features: Not applicable Protective measures: Not applicable Date of Injury: 2 weeks ago Time of Injury: unknown Patient origin: Transfer from outside facility- [facility] HISTORY OF PRESENT INJURY: Carly Marcelino is a 83 year old female brought in as transfer from OSH ED for subdural acute on chronic with new midline shift, AMS. Patient had GLF 2 weeks ago, had subdural and was admitted; no midline shift at that time, no AMS. Was doing well and discharged to rehab facility. Started on lovenox recently for DVT ppx. AMS noted on . Presented to ED today. Complaints of headache. No new injury. Loss of consciousness: No Initial interventions: None Hemodynamic status in ED: None applicable PRIMARY SURVEY: Airway: Intact Breathing: Normal Breath Sounds: Breath sounds equal bilaterally. Circulation: Pulses: Normal Skin: Warm Disability: Pupils: PERRL GCS: Best Eyes: 4 Best Verbal: 4 Best Motor: 6 Total: 14 SECONDARY SURVEY: Vitals: Pulse 82 Resp (!) 21 Neurologic: Alert and oriented to person/place only, confused, moves all extremities. HEENT: Head: No lacerations, bone step-offs, or abrasions; midface stable to palpation Eyes: PERRLA, conjunctiva/corneas without lesions. Ears: No hemotympanum Nose: No bloody drainage. Throat: Oral cavity without trauma. Neck: No midline tenderness, lacerations, or wounds Chest: No crepitus or pain with palpation; no abrasions or contusions; no gross deformities Pulmonary: Breath sounds clear, symmetrical; no wheezes, rales, or consolidation Cardiovascular: Pulses: Bilateral radial, DP pulses are normal. Abdomen: Non-distended; non-tender to palpation; no scars, lacerations, or contusions Rectal: Not performed. Pelvis/Perineum: Pelvis is stable to palpation Musculoskeletal: Back/Spine: No step-off or deformity noted, nontender midline Extremities: ROM normal, no gross deformities or abnormalities. Old ecchymosis on extremities. Large ecchymosis R knee Additional exam findings: Altered mental status PAST MEDICAL HISTORY: Asthma, HTN, HLD, DESTINY, cataracts PAST SURGICAL HISTORY: No past surgical history on file. PRE-ADMISSION MEDICATIONS: (Not in a hospital admission) Anti-platelet use: No Anti-coagulant use: Yes: lovenox (name) and 08/10 (date of last use) ALLERGIES: Allergies Allergen Reactions Hydantoins Anaphylactic Shock and Other Other Reaction(s): loss of muscle tone, Unknown Reaction, loss of muscle tone throat swells ,hives Hydrochlorothiazide Hyponatremia Valproic Acid Other Daughter states she almost , had an out of body experience Sertraline Other insomnia Amlodipine Base Other Hypertension, intolerance Carbamazepine Itching Tegretal caused itching Labetalol Other Intolerance Mastisol Rash Mometasone Furo-Formoterol Fum Other and Nausea Falls Nifedipine Other intolerance Nitrofurantoin Rash across nose/ cheeks SOCIAL HISTORY: Social History Socioeconomic History Marital status: Unknown Social Determinants of Health Financial Resource Strain: Low Risk (05/04/2023) Received from [facility] Overall Financial Resource Strain (CARDIA) Difficulty of Paying Living Expenses: Not hard at all Food Insecurity: No Food Insecurity (05/04/2023) Received from [facility] Hunger Vital Sign Worried About Running Out of Food in the Last Year: Never true Ran Out of Food in the Last Year: Never true Transportation Needs: No Transportation Needs (05/04/2023) Received from [facility] PRAPARE - Transportation Lack of Transportation (Medical): No Lack of Transportation (Non-Medical): No Living status: Assisted living- rehab facility Primary language: Martiniquais Functional status: Independent Impairments: None Assistive Devices Used: None FAMILY HISTORY: The patient's family history is non-contributory to this acute trauma. REVIEW OF SYSTEMS: Obtained and negative unless otherwise noted in HPI BASIC LABS 9.0 \ 10.0 / 272 / 29.5 \ CBC: 08/12/2023: 7:19 PM 138 106 21 / \ 91 4.1 25 0.73 BMP: 08/12/2023: 7:19 PM INR 0.96 RADIOLOGY: CT HEAD: Findings: acute on chronic left holohemispheric subdural hematoma with right sided midline shift rCT head 08/11 2301: Mixed density left hemispheric subdural hematoma measuring up to 2.2 cm at greatest thickness with increased mass effect upon the underlying brain parenchyma and resultant 1.2 cm left to right midline shift. Right lateral ventricular entrapment. ASSESSMENT: Carly Marcelino is a 83 year old female transferred here for subdural hemorrhage with midline shift, AMS. Baseline mental status is A&Ox3 without confusion per EMS. GCS14 and confused throughout ED stay. No other acute neuro deficits at this time. Hemodynamically stable. No new trauma or signs of other injuries. INJURIES: -acute on chronic left holohemispheric subdural hematoma with right sided midline shift -AMS PLAN: -250cc hypertonic saline given at prior ED -Protamine given in ED for lovenox reversal -NSGY consulted -Plan to admit to TICU with systemic based plan as below Neuro-: -NSGY following, no acute interventions; recs: -Q1H neurochecks -OR for L katty hole on 08/14/23 (NPO midnight 08/13) -Continue home keppra dose -SBP<170, plt>100, INR<1.4 -normonatremia, normothermia, euvolemia -SCDs only, no AC/antiplt -tylenol prn for headache Cardio: -no acute issues -continued home losartan, statin Respiratory: -no acute issues -continued home albuterol prn GI: -NPO for now until swallow assessed -colace, senna scheduled and prn dulcolax -zofran prn Renal: -renal function baseline -NS 75cc/hr mIVF while NPO -Daily BMP, Mg, Phos Heme: -no acute issues -Daily CBC ID: -no indication for abx at this time MSK: -no issues Preventative: -SCDs Code status: discussed with daughter by NSGY, may lean towards DNR in future so reassess with family/patient as able prior to OR and further interventions Tertiary: Completed no new imaging indicated Wound Care Instructions: No wound care needed Antibiotics: Inpatient antibiotics per plan above Final ED disposition: ICU Does patient have a traumatic brain injury? YES INITIAL TRIAGE OF TRAUMATIC BRAIN INJURY USING BRAIN INJURY GUIDELINES (BIG) For patients ? [address] evidence of Traumatic Brain Injury (EDH, SDH, SAH, Contusion, IPH, or IVH): Variables BIG-1 BIG-2 BIG-3 Mechanism of Injury Blunt Blunt Blunt or Penetrating GCS 14-15 12-13 <12 Intoxication No No or Yes No or Yes Prehospital Anticoagulant or Antiplatelet use No ASA only Any AC/AP excluding ASA Head CT Findings Skull Fracture No Nondisplaced Displaced SDH ?4mm 5-7mm ?8mm EDH ?4mm 5-7mm ?8mm IPH ?4mm, 1 location 5-7mm, 2 locations ?8mm, multiple locations SAH Trace Localized Scattered IVH No No Yes MLS No No Yes *Adopted from: Marcos Unger et al. (2017). Safety and Efficacy of Brain Injury Guidelines at a Level III Trauma Center. J Trauma Acute Care Surg. Vol (84)3, 483-489. Micky Mckeon et al. (2021). Validating the Brain Injury Guidelines: Results of an [place] [employer] of Trauma prospective multi-institutional trial. J Trauma Acute Care Surg. 2021;93(2):157-165. BIG Score: BIG 1 - with SDH (neurosurgery to be consulted) Patient discussed with Attending Trauma Surgeon, Dr. Cotter. Agnieszka Moctezuma DO Associated attestation - aGvino Cotter MD - 08/13/2023 3:23 AM EDT Teaching Physician Note: I saw and evaluated the patient. I personally obtained the kuo and critical portions of the history and physical exam. I reviewed the resident's documentation and discussed the patient with the resident. I agree with the resident's medical decision making as documented in the resident's note Gavino Cotter MD Division of Trauma, Critical Care, Gregory, and Emergency General Surgery Department of Surgery [facility] 08-09-2023 Telephone encounter Note Transitions of Care SNF/Acute Rehab Weekly Review Chart review completed CarePort reviewed. SNF in CarePort: Yes Call placed to SNF Cnc Operator: No Patient remains in SNF/Acute Rehab: Yes Patient discharged from SNF/Acute Rehab: No Case returned to Suction Plate Carrier Cleaner: No Patient remains in SNF greater than 30 days post hospital discharge: No Ronaldo Major case closed: No, Patient discharged to SNF/Acute Rehab on: 08/04/2023 Name of [facility]/Acute Rehab: [facility] Phone number: [phone] [facility] 08-09-2023 Miscellaneous Notes Transitions of Care SNF/Acute Rehab Weekly Review Chart review completed CarePort reviewed. SNF in CarePort: Yes Call placed to SNF Cnc Operator: No Patient remains in SNF/Acute Rehab: Yes Patient discharged from SNF/Acute Rehab: No Case returned to Suction Plate Carrier Cleaner: No Patient remains in SNF greater than 30 days post hospital discharge: No Ronaldo Major case closed: No, Patient discharged to SNF/Acute Rehab on: 08/04/2023 Name of [facility]/Acute Rehab: [facility] Phone number: [phone] documented in this encounter [facility] 08-09-2023 Telephone encounter Note Transition Of Care - SNF/Acute Rehab Discharge Note Patient discharged to SNF/Acute Rehab on: 08/04/2023 Name of [facility]/Acute Rehab: [facility] Phone number: [phone] Ronaldo Major Wrap Up Task created in Silk Brusher's name for follow up YUSUF Baxter, RN Suction Plate Carrier Cleaner, [facility] [phone], option 4 [facility] 08-09-2023 Miscellaneous Notes Transition Of Care - SNF/Acute Rehab Discharge Note Patient discharged to SNF/Acute Rehab on: 08/04/2023 Name of SNF/Acute Rehab: [facility] Phone number: [phone] [facility] Wrap Up Task created in Silk Brusher's name for follow up YUSUF Baxter, RN Suction Plate Carrier Cleaner, [facility] [phone], option 4 documented in this encounter [facility] 08-04-2023 Plan of care note Problem: Routine Care: Goal: Patient care will be managed and maintained throughout hospital stay per unit specific routine care procedure Outcome: Adequate for Discharge Patient discharged to rehab at 1027. Patient IV removed. Patient A&Ox3 and excited to leave. Report given to Cherrie. Report called to rehab. [facility] 08-04-2023 Miscellaneous Notes Problem: Routine Care: Goal: Patient care will be managed and maintained throughout hospital stay per unit specific routine care procedure Outcome: Adequate for Discharge Patient discharged to rehab at 1027. Patient IV removed. Patient A&Ox3 and excited to leave. Report given to Cherrie. Report called to rehab. CASE MANAGEMENT/SOCIAL WORK SNF DC NOTE: Pt has been cleared for transfer to SNF on tomorrow 08/04/23 Pt will be transferred to [facility] via Jerel Mcneil ([id number]) at 10am Nursing report may be called to [phone] station 1. please fax dc med list to [phone] Support person notified: HEBERT ALVAREZ (Daughter) [phone] Patient/Family, team aware of above and agreeable. For discharge, please ensure the following is completed: MD to place DC order, reconcile meds, and print narcotics to go with patient to SNF [place] to print Discharge Summary, [place], Summary of Care, Narcotic Scripts, and Signature Page and place in a packet to be given to armored car guard and driver If transport/discharge needs to be adjusted/cancelled, team (/RN) to cancel transport, update support person, and update receiving facility. Social Work/Case Management: Reason for placement: PT/OT Therapies Patient level of care required : Skilled Applicant's potential for returning to community: Convalescent stay:<30 days Prognosis: Fair Rehab Potential: Improve Mental/Behavioral status:Oriented Affect: Calm Social Work Assessment Functional status prior to admission: amb with RW Community agencies active with patient: none Support system: Family support Capacity for independent living/half-way plan:Return to independent living Other hospital admissions within the past 60 days: No Other pertinent problems: none Problem: Routine Care: Goal: Patient care will be managed and maintained throughout hospital stay per unit specific routine care procedure 08/03/2023 140 by Ester Jiménez RN Outcome: Progressing Note: Hourly rounding performed, call cuevas within reach and bed in low locked position 08/03/2023 07 by Ester Jiménez RN Outcome: Progressing Goal: Ability to acheive therapeutic anticoagulation therapy with be maintained 08/03/2023 1409 by Ester Jiménez RN Outcome: Progressing 08/03/2023 07 by Ester Jiménez RN Outcome: Progressing Problem: Impaired Skin Integrity: Goal: Skin integrity will improve and/or be maintained 08/03/2023 1409 by Ester Jiménez RN Outcome: Progressing 08/03/2023 07 by Ester Jiménez RN Outcome: Progressing Problem: Altered Elimination: Goal: Establishment of individualized bowel routine will be obtained 08/03/2023 1409 by Ester Jiménez RN Outcome: Progressing 08/03/2023 0713 by Ester Jiménez RN Outcome: Progressing Goal: Establishment of normal urinary function will be acheived and maintained 08/03/2023 1409 by Ester Jiménez RN Outcome: Progressing 08/03/2023712 by Ester Jiménez RN Outcome: Progressing Goal: Establishment of individualized urinary routine 08/03/2023 1409 by Ester Jiménez RN Outcome: Progressing 08/03/2023712 by Ester Jiménez RN Outcome: Progressing Problem: Impaired Mobility: Goal: Ability to tolerate increased activity will improve and be maintained 08/03/2023 140 by Ester Jiménez RN Outcome: Progressing 08/03/2023712 by Ester Jiménez RN Outcome: Progressing Goal: Ability to maintain or regain baseline function will be acheived 08/03/2023 1409 by Ester Jiménez RN Outcome: Progressing 08/03/2023712 by Ester Jiménez RN Outcome: Progressing Goal: Range of joint motion will improve 08/03/2023 140 by Ester Jiménez RN Outcome: Progressing 08/03/2023712 by Ester Jiménez RN Outcome: Progressing Goal: Ability to safely transfer will be achieved by discharge 08/03/2023 1409 by Ester Jiménez RN Outcome: Progressing 08/03/2023712 by Ester Jiménez RN Outcome: Progressing Goal: Will be free of DVT 08/03/2023 1409 by Ester Jiménez RN Outcome: Progressing 08/03/2023712 by Ester Jiménez RN Outcome: Progressing Problem: Activity Intolerance: Goal: Will be free of DVT 08/03/2023 1409 by Ester Jiménez RN Outcome: Progressing 08/03/2023712 by Ester Jiménez RN Outcome: Progressing Problem: Fluid and Electrolyte Imbalance: Goal: Will show no signs and symptoms of excessive bleeding 08/03/2023 1409 by Ester Jiménez RN Outcome: Progressing 08/03/2023712 by Ester Jiménez RN Outcome: Progressing Problem: Altered Neurological Status: Goal: Optimal neurological status will be maintained or regained 08/03/20231408 by Ester Jiménez RN Outcome: Progressing 08/03/2023712 by Ester Jiménez RN Outcome: Progressing Goal: Altered Level of Consciousness will improve 08/03/20231408 by Ester Jiménez RN Outcome: Progressing 08/03/2023712 by Ester Jiménez RN Outcome: Progressing Problem: Alteration in Tissue Perfusion: Cerebral: Goal: Promote adequate perfusion and limit complications for a person experiencing or at risk for inadequate cerebral perfusion 08/03/20231408 by Ester Jiménez RN Outcome: Progressing 08/03/2023712 by Ester Jiménez RN Outcome: Progressing Problem: Alteration in Respiratory Status: Goal: Achieve Optimal Respiratory Status with Minimal Ventilatory/Oxygen Support 08/03/20231408 by Ester Jiménez RN Outcome: Progressing 08/03/2023712 by Ester Jiménez RN Outcome: Progressing Problem: Acute Pain: Goal: Ability to identify pain intensity on a pain scale and rate it consistently will be achieved and maintained 08/03/20231408 by Ester Jiménez RN Outcome: Progressing Note: Patient pain assessed on a scale from 0-10, pain interventions performed as needed 08/03/2023712 by Ester Jiménez RN Outcome: Progressing Goal: Understanding of proper administration and use of medicines will be achieved 08/03/20231408 by Ester Jiménez RN Outcome: Progressing 08/03/2023712 by Ester Jiménez RN Outcome: Progressing Problem: Safety: Goal: Patient will remain free of falls during hospital stay 08/03/20231408 by Ester Jiménez RN Outcome: Progressing Note: Patient wearing yellow fall risk band, non-slip socks and call cuevas within reach. 08/03/2023712 by Al-Zarraq, Ester, RN Outcome: Progressing Goal: Free from injury during hospitalization 08/03/2023 1409 by Ester Jiménez RN Outcome: Progressing 08/03/2023 0713 by Ester Jiménez RN Outcome: Progressing Problem: Restraint: Goal: Remain safe while in restraints and once discontinued 08/03/2023 1409 by Ester Jiménez RN Outcome: Met Note: No restraints on patient in the last 24 hours 08/03/2023 0713 by Ester Jiménez RN Outcome: Progressing Problem: Routine Care: Goal: Patient care will be managed and maintained throughout hospital stay per unit specific routine care procedure Outcome: Progressing Goal: Ability to acheive therapeutic anticoagulation therapy with be maintained Outcome: Progressing Problem: Impaired Skin Integrity: Goal: Skin integrity will improve and/or be maintained Outcome: Progressing Problem: Altered Elimination: Goal: Establishment of individualized bowel routine will be obtained Outcome: Progressing Goal: Establishment of normal urinary function will be acheived and maintained Outcome: Progressing Goal: Establishment of individualized urinary routine Outcome: Progressing Problem: Impaired Mobility: Goal: Ability to tolerate increased activity will improve and be maintained Outcome: Progressing Goal: Ability to maintain or regain baseline function will be acheived Outcome: Progressing Goal: Range of joint motion will improve Outcome: Progressing Goal: Ability to safely transfer will be achieved by discharge Outcome: Progressing Goal: Will be free of DVT Outcome: Progressing Problem: Activity Intolerance: Goal: Will be free of DVT Outcome: Progressing Problem: Fluid and Electrolyte Imbalance: Goal: Will show no signs and symptoms of excessive bleeding Outcome: Progressing Problem: Altered Neurological Status: Goal: Optimal neurological status will be maintained or regained Outcome: Progressing Goal: Altered Level of Consciousness will improve Outcome: Progressing Bed locked and in lowest position with call light within reach. Sitter at bedside. Problem: Routine Care: Goal: Patient care will be managed and maintained throughout hospital stay per unit specific routine care procedure 08/01/2023 1011 by Avani Noonan RN Outcome: Progressing 08/01/2023 1008 by Avani Noonan RN Outcome: Progressing Goal: Ability to acheive therapeutic anticoagulation therapy with be maintained 08/01/2023 1011 by Avani Noonan RN Outcome: Progressing 08/01/2023 1008 by Avani Noonan RN Outcome: Progressing Problem: Impaired Skin Integrity: Goal: Skin integrity will improve and/or be maintained 08/01/2023 1011 by Avnai Noonan RN Outcome: Progressing 08/01/2023 1008 by Avani Noonan RN Outcome: Progressing Problem: Altered Elimination: Goal: Establishment of individualized bowel routine will be obtained 08/01/2023 1011 by Avani Noonan RN Outcome: Not Progressing Note: Pt has not had BM since admission, medication and education provided. 08/01/2023 1008 by Avani Noonan RN Outcome: Not Progressing Note: Pt has not had bowel movement since admission, medication and education provided. Goal: Establishment of normal urinary function will be acheived and maintained 08/01/2023 1011 by Avani Noonan RN Outcome: Progressing Note: Kunz removed at 0600, pt voided per bedpan at approximately 0900 with no issues. 08/01/2023 1008 by Avani Noonan RN Outcome: Progressing Note: Pt kunz removed at 0600 today, pt voided per bedpan at approximately 0900 with no issues. Goal: Establishment of individualized urinary routine 08/01/2023 1011 by Avani Noonan RN Outcome: Progressing 08/01/2023 1008 by Avani Noonan RN Outcome: Progressing Problem: Impaired Mobility: Goal: Ability to tolerate increased activity will improve and be maintained 08/01/2023 1011 by Avani Noonan RN Outcome: Progressing 08/01/2023 1008 by Avani Noonan RN Outcome: Progressing Goal: Ability to maintain or regain baseline function will be acheived 08/01/2023 1011 by Avani Noonan RN Outcome: Progressing 08/01/2023 1008 by Avani Noonan RN Outcome: Progressing Goal: Range of joint motion will improve 08/01/2023 1011 by Avani Noonan RN Outcome: Progressing 08/01/2023 1008 by Avani Noonan RN Outcome: Progressing Goal: Ability to safely transfer will be achieved by discharge 08/01/2023 1011 by Avani Noonan RN Outcome: Progressing 08/01/2023 1008 by Avani Noonan RN Outcome: Progressing Goal: Will be free of DVT 08/01/2023 1011 by Avani Noonan RN Outcome: Progressing 08/01/2023 1008 by Avani Noonan RN Outcome: Progressing Problem: Activity Intolerance: Goal: Will be free of DVT 08/01/2023 1011 by Avani Noonan RN Outcome: Progressing 08/01/2023 1008 by Avani Noonan RN Outcome: Progressing Problem: Fluid and Electrolyte Imbalance: Goal: Will show no signs and symptoms of excessive bleeding 08/01/2023 1011 by Avani Noonan RN Outcome: Progressing 08/01/2023 1008 by Avani Noonan RN Outcome: Progressing Problem: Altered Neurological Status: Goal: Optimal neurological status will be maintained or regained 08/01/2023 1011 by Avani Noonan RN Outcome: Progressing Note: Pt A&Ox3 this AM though is forgetful at times. Will continue to monitor. 08/01/2023 1008 by Avani Noonan RN Outcome: Progressing Note: Pt A&Ox3 this morning though is forgetful at times. Will continue to monitor. Goal: Altered Level of Consciousness will improve 08/01/2023 1011 by Avani Noonan RN Outcome: Progressing 08/01/2023 1008 by Avani Noonan RN Outcome: Progressing Problem: Alteration in Tissue Perfusion: Cerebral: Goal: Promote adequate perfusion and limit complications for a person experiencing or at risk for inadequate cerebral perfusion 08/01/2023 1011 by Avani Noonan RN Outcome: Progressing 08/01/2023 1008 by Avani Noonan RN Outcome: Progressing Problem: Alteration in Respiratory Status: Goal: Achieve Optimal Respiratory Status with Minimal Ventilatory/Oxygen Support 08/01/2023 1011 by Avani Noonan RN Outcome: Progressing 08/01/2023 1008 by Avani Noonan RN Outcome: Progressing Problem: Acute Pain: Goal: Ability to identify pain intensity on a pain scale and rate it consistently will be achieved and maintained 08/01/2023 1011 by Avani Noonan RN Outcome: Progressing 08/01/2023 1008 by Avani Noonan RN Outcome: Progressing Goal: Understanding of proper administration and use of medicines will be achieved 08/01/2023 1011 by Avani Noonan RN Outcome: Progressing 08/01/2023 1008 by Avani Noonan RN Outcome: Progressing Problem: Safety: Goal: Patient will remain free of falls during hospital stay 08/01/2023 1011 by Avani Noonan RN Outcome: Progressing 08/01/2023 1008 by Avani Noonan RN Outcome: Progressing Goal: Free from injury during hospitalization 08/01/2023 1011 by Avani Noonan RN Outcome: Progressing 08/01/2023 1008 by Avani Noonan RN Outcome: Progressing Problem: Restraint: Goal: Remain safe while in restraints and once discontinued Outcome: Progressing Note: Pt was ordered restraints yesterday afternoon d/t increased agitation and pulling at medical devices. Upon assessment, pt no longer in restraints and was calm and oriented. No need for restraints at this time, order discontinued. Will continue to monitor. Problem: Routine Care: Goal: Patient care will be managed and maintained throughout hospital stay per unit specific routine care procedure Outcome: Progressing Goal: Ability to acheive therapeutic anticoagulation therapy with be maintained Outcome: Progressing Problem: Impaired Skin Integrity: Goal: Skin integrity will improve and/or be maintained Outcome: Progressing- Q2 turns, incontinence care as needed Problem: Altered Elimination: Goal: Establishment of individualized bowel routine will be obtained Outcome: Progressing Goal: Establishment of normal urinary function will be acheived and maintained Outcome: Progressing Goal: Establishment of individualized urinary routine Outcome: Progressing Problem: Impaired Mobility: Goal: Ability to tolerate increased activity will improve and be maintained Outcome: Progressing Goal: Ability to maintain or regain baseline function will be acheived Outcome: Progressing Goal: Range of joint motion will improve Outcome: Progressing Goal: Ability to safely transfer will be achieved by discharge Outcome: Progressing Goal: Will be free of DVT Outcome: Progressing- Problem: Activity Intolerance: Goal: Will be free of DVT Outcome: Progressing Problem: Fluid and Electrolyte Imbalance: Goal: Will show no signs and symptoms of excessive bleeding Outcome: Progressing Problem: Altered Neurological Status: Goal: Optimal neurological status will be maintained or regained Outcome: Progressing Goal: Altered Level of Consciousness will improve Outcome: Progressing- Q4 neuro checks, reorient patient as needed Problem: Alteration in Tissue Perfusion: Cerebral: Goal: Promote adequate perfusion and limit complications for a person experiencing or at risk for inadequate cerebral perfusion Outcome: Progressing Problem: Alteration in Respiratory Status: Goal: Achieve Optimal Respiratory Status with Minimal Ventilatory/Oxygen Support Outcome: Progressing Problem: Acute Pain: Goal: Ability to identify pain intensity on a pain scale and rate it consistently will be achieved and maintained Outcome: Progressing Goal: Understanding of proper administration and use of medicines will be achieved Outcome: Progressing- Scheduled and PRN pain meds, pain assessments, rest, reposition Problem: Safety: Goal: Patient will remain free of falls during hospital stay Outcome: Progressing Goal: Free from injury during hospitalization Outcome: Progressing Problem: Routine Care: Goal: Patient care will be managed and maintained throughout hospital stay per unit specific routine care procedure Outcome: Progressing Goal: Ability to acheive therapeutic anticoagulation therapy with be maintained Outcome: Progressing Problem: Impaired Skin Integrity: Goal: Skin integrity will improve and/or be maintained Outcome: Progressing Problem: Altered Elimination: Goal: Establishment of individualized bowel routine will be obtained Outcome: Progressing Goal: Establishment of normal urinary function will be acheived and maintained Outcome: Progressing Goal: Establishment of individualized urinary routine Outcome: Progressing Problem: Impaired Mobility: Goal: Ability to tolerate increased activity will improve and be maintained Outcome: Progressing Note: Prog mobility Goal: Ability to maintain or regain baseline function will be acheived Outcome: Progressing Goal: Range of joint motion will improve Outcome: Progressing Goal: Ability to safely transfer will be achieved by discharge Outcome: Progressing Goal: Will be free of DVT Outcome: Progressing Problem: Activity Intolerance: Goal: Will be free of DVT Outcome: Progressing Problem: Fluid and Electrolyte Imbalance: Goal: Will show no signs and symptoms of excessive bleeding Outcome: Progressing Note: Daily labs with replacements PRN Problem: Altered Neurological Status: Goal: Optimal neurological status will be maintained or regained Outcome: Progressing Note: Q 2 neuro checks Goal: Altered Level of Consciousness will improve Outcome: Progressing Problem: Alteration in Tissue Perfusion: Cerebral: Goal: Promote adequate perfusion and limit complications for a person experiencing or at risk for inadequate cerebral perfusion Outcome: Progressing Problem: Alteration in Respiratory Status: Goal: Achieve Optimal Respiratory Status with Minimal Ventilatory/Oxygen Support Outcome: Progressing Problem: Acute Pain: Goal: Ability to identify pain intensity on a pain scale and rate it consistently will be achieved and maintained Outcome: Progressing Goal: Understanding of proper administration and use of medicines will be achieved Outcome: Progressing Problem: Safety: Goal: Patient will remain free of falls during hospital stay Outcome: Progressing Goal: Free from injury during hospitalization Outcome: Progressing Social Work/Case Management: Reason for placement: PT/OT Therapies Patient level of care required : Skilled Applicant's potential for returning to community: Return home Convalescent stay:<30 days Prognosis: Good Rehab Potential: Improve Mental/Behavioral status:Alert, Oriented, Cooperative Affect: Calm Social Work Assessment Functional status prior to admission: Independent for ADLs, ambulates with rollator, drives self Community agencies active with patient: n/a Support system: [facility] [place], . Capacity for independent living/half-way plan: live with daughter Other hospital admissions within the past 60 days: No Other pertinent problems: PATRICIA Valdez LISW 0500 - At 0400 neuro check, pt unable to state year of , where she is, why she is here, the current month or year. Pt would smile and say uh huh to everything. An PIV attempt was made due to pt having only 1 PIV at this time. During attempt, pt asked why we were hurting her and why we had to do that. This RN explained that we were attempting to place another IV and we were not trying to hurt her. Pt also has not voided since around 2200 with straight cath. This RN explained that I was going to check her bladder. While bladder scanning the pt, pt asked who this RN was and why I was checking her bladder multiple times. This RN explained that I am her nurse because she in the hospital and that since she had not peed in 6 hours, I needed to make sure that her bladder was not full. Dr. Gilman notified, stated that she would notified neurosurgery. [phone] Viviana Marrero PA-C down to assess pt. Viviana stated that pt did not need repeat CT head. NSGY Treatment Plan Note Repeat head CT stable. Okay for q2h neurochecks. Viviana Marrero PA-C Neurosurgery Service Pager [phone] Problem: Routine Care: Goal: Patient care will be managed and maintained throughout hospital stay per unit specific routine care procedure Note: Routine care managed per TICU/SICU protocol Problem: Impaired Skin Integrity: Goal: Skin integrity will improve and/or be maintained Note: Duel nurse skin inspection upon shift change; Daily/ PRN dressing changes; Q2 turns Problem: Altered Elimination: Goal: Establishment of individualized bowel routine will be obtained Note: Bowel regimen per MD order Problem: Impaired Mobility: Goal: Ability to tolerate increased activity will improve and be maintained Note: PT/ OT; Progressive mobility Problem: Altered Neurological Status: Goal: Optimal neurological status will be maintained or regained Note: Complete neurologic assessment Q1 NEUROSURGERY TREATMENT PLAN NOTE rCTH reviewed and discussed with attending, Dr. Li. CTH repeat imaging results - slight interval increase in SDH size, MLS appears grossly stable, small Repeat exam - Ox2, UE without drift but tremulous, no gross CN deficit Plan: -trauma primary -Q1 neuro checks -repeat CTH in 6 hours (~ 2200) -vital signs SBP < 170 -SCDs for DVT prophylaxis -please transfuse 1 U platelets -Hold anticoagulation or antiplatelet -will continue to follow Patient clinical information, exam and imaging discussed with attending, Dr. Li who agrees with the above. Please call anytime with questions or concerns. Ayanna Ignacio PA-C Neurosurgery Pager - [phone] Division of Trauma, Surgical Critical Care, EGS Ticket to Roll Note . Dr. Sanchez, who is the RUP. The patient is transferring from ED, room # 33, to TICU, room # 207-1. The patient was added to the Trauma Surgery list. Vickie Hummel PA-C RUP = Receiving unit provider RNF = Regular nursing floor documented in this encounter [facility] 08-04-2023 [facility] Consult note Formatting of is note might be different from the original. Speech Language Pathology Documentation Attempted follow up tx session to address cognition and diet tolerance. Patient currently engaged in phone conversation. Will follow per POC as patient schedule permits. KONRAD Oakley/INSPECTOR CHIEF Speech and Language Pathologist Pager [phone] [facility] 08-03-2023 Consult note Formatting of th is note might be different from the original. Speech Language Pathology Documentation Attempted follow up tx session to address cognition and diet tolerance. Patient currently engaged in phone conversation. Will follow per POC as patient schedule permits. KONRAD Oakley/JOSELYN Speech and Language Pathologist Pager [phone] OCCUPATIONAL THERAPY PROGRESS SUMMARY Patient seen from 1031 to 1100 on GC5E unit for 29 minute treatment. SUBJECTIVE: Patient Subjective/Goals I am doing so much better than when I first came in. OBJECTIVE: Pain: No pain reported or noted Pain Relief Interventions Implemented: None required; No pain at this time Appearance/Behavior: Supine, IV, facial bruising, pt pleasant and cooperative Cognition: Aox3, pt with improved cognitive status, able to follow commands and sequence appropriately UE Status: BUE AROM grossly WFL to complete ADLs, strength not formally assessed Self Care: Assistance Level NA Dep Max Mod Min CG CS DS MS I Set-Up Cues Comment Feeding x x Anticipated to cut food Grooming/ Hygiene x x Assist to open packages and containers, pt completed oral hygiene in a seated position Bathing: Upper Body x Simulated sponge bathing Bathing: Lower Body x Simulated sponge bathing Dressing: Upper Body x Pt donned sweater Dressing: Lower Body x Pt donned underwear with min A to pull clothing over hips Toileting x Anticipated for thoroughness of hygiene Toilet Transfers x anticipated Bed Transfer x Sit to stand from EOB to wheeled walker Pt ambulated ~20 ft using wheeled walker, slow maryann Bed Mobility x Supine to sit EOB Endurance for Self Care: Impaired Patient/Family Education: Instructed patient in roles of therapy, importance of OOB activity and occupational engagement, discharge planning, fall prevention DME: With Patients permission ordered no equipment via [employer] Order. If any questions contact [facility] DME Provider at [phone]. 08/03/2023 6 Clicks Daily Activity OT Help from another person Eating meals 3 Help from another person taking care of personal grooming 3 Help from another person bathing 3 Help from another person putting on and taking off regular upper body clothing 3 Help from another person putting on and taking off regular lower body clothing 3 Help from another person toileting 3 OT 6 Clicks Score 18 6 Click Score Guidelines: 1 - Unable = Total/Dependent Assist 2 - A lot = Max/Moderate Assist 3 - A little = Minimum/Contact Guard Assist/Supervision 4 - Non = Modified Wilson/Independent ASSESSMENT: ASSESSMENT: Recommend further therapy services in a Skilled Rehab Setting once medically cleared. Will continue to follow patient while in hospital as appropriate. Goals (to be achieved by discharge from acute care): Patient will perform grooming with Modified Independent Patient will dress upper body with Distant supervision Patient will dress lower body with Contact Guard Patient will perform bed mobility with Close supervision Patient will perform bathing with Contact Guard Patient will perform toileting with Contact Guard Patient will perform bed transfers with Close supervision Patient will perform commode transfers with Close supervision Patient will follow 3 step directions with min VCs Patient will demonstrate orientation to place, date and situation with 100% accuracy PLAN: Continue with Plan as per Initial Evaluation. Valerie Us OT NA = Not Assessed, I = Independent, MS = Modified Independent, Sup = Supervised, Set up = Physical Assistance for Set-up Only, Min = Minimal Assistance, Mod = Moderate Assistance, Max = Max assistance; Dep = Dependent; AROM = Active Range of Motion;PROM=Passive Range of Motion; MMT = Manual Muscle Test; Shld= Shoulder; Add = Adduction; Abd = Abduction PHYSICAL THERAPY PROGRESS SUMMARY Patient seen from [id number] on 5W unit for 17 minute treatment. SUBJECTIVE: Okay to treat per RN. Patient Subjective/Goals: Agreeable to therapy. I don't think I'm ready to walk yet. 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: Reclined in bed on arrival, +PIV, diffuse bruising, EKG/pulse ox/BP cuff Behavior: Alert, cooperative, pleasant Oriented x3 Pain: Site/Location: n/a; Pain Scale: 0/10 Pain Relief Interventions Implemented: None required; No pain at this time Mobility: NA Dep Max Mod Min CG CS DS MS I Comment Roll to (R) sidelying x Roll to (L) sidelying x Sidelying to sit x Supine to sit x HOB 30, +bedrail; increased time to complete Sitting balance x Upright unsupported on EOB TherEx: (B) LE AROM LAQ Sit to/from stand x From EOB to RW Standing balance x RW, flexed posture Transfers x Standing step/turn bed>chair with RW, mild instability Ambulation x Patient deferred Stair negotiation x Functional Endurance: Impaired, easily fatigues; VSS Patient/Family Education: Instructed patient in roles, goals, treatment plan: demonstrated fair-good verbal understanding. Patient remained seated in bedside chair at end of session with pressure alarm in place due to falls risk; all needs within reach. Lines/leads intact; VSS. Sitter at bedside. Patient instructed to call for staff assist when ready to return to bed and for all mobility. RN aware of patient location and mobility status. DME: TBD 08/01/2023 6 Clicks Basic Mobility PT Difficulty turning over in bed 3 Difficulty sitting down and standing up from a chair with arms 3 Difficulty moving from lying on back to sitting on the side of the bed 3 Help from another person moving to and from bed to a chair 3 Help from another person to walk in hospital room 3 Help from another person climbing 3-5 steps with a railing 1 PT 6 Clicks Score 16 6 Click Score Guidelines: 1 - Total = Requires total assistance, or cannot do at all. 2 - A lot = Requires a lot of help (maximum to moderate assistance) Can use assistive devices. 3 - A little = Requires a little help (supervision, minimal assistance) Can use assistive devices. 4 - None = Does not require any help and does the activity independently. Can use assistive devices. ASSESSMENT: Recommend further therapy services in a Snf Setting once medically cleared. Will continue to follow patient while in hospital as appropriate. Goals (to be achieved by 10 days or by discharge from acute care): In progress, CONTINUE Patient will achieve acceptable level of pain control to allow participation in therapy. Patient will increase bed mobility to contact guard assistance Patient will perform sit to/from stand with rolling walker with contact guard assistance Patient will ambulate 50 feet with rolling walker with contact guard assistance Patient will increase ROM/Strength/Endurance/Balance to allow for above goals. Patient/Family independent with exercise program/precautions. PLAN: Will follow established Plan of Care, 1-3x/wk. Shital Hinds, PT, DPT NA = Not Assessed, I = Independent, MS = Modified Independent, Sup = Supervised, Set up = Physical Assistance for Set-up Only, Min = Minimal Assistance, Mod = Moderate Assistance, Max = Maximal assistance; Dep = Dependent; AROM = Active Range of Motion; PROM = Passive Range of Motion; MMT = Manual Muscle Test Dietitian vs DietaryTech: Dietary [employer]iet [employer] Nutrition Screening Reason for visit: LOS 5 or more days Assessment Admitting Diagnosis: TRAUMA fall, subdural bleed with shift High risk nutrition diagnosis: No - no points Past Medical History: No past medical history on file. Food Allergies: None Albumin: n/a - no points Skin Integrity: No pressure ulcers at this time - no points Fluid Accumulation: Edema-bilateral le, non-pitting Diet Order: Regular % PO Intake: Less than 50% for greater than and equal to 5 days - 4 points Intake Difficulties: Decreased appetite - 0 points 5' 7 Weight Only Weight 07/29/2023 3:50 PM 185 lb 07/29/2023 4:48 PM 183 lb 11.2 oz BMI Screening value: 21 or greater - 0 points % Weight Loss: None Weight Loss Screening Value: None Comments: Intake-appetite decreased, no food allergies. Weights-see above. May benefit from Ensure with meals. Monitor. Number of Points: 4 Nutritional Plan of Care: Less than or equal to 6 points: At this time, patient is at low nutrition risk. DTR to provide routine follow up. Will continue to follow, BHARATI Zabala (Nutrition) Pager #[phone]. Associated Order(s): IP OCCUPATIONAL THERAPY SERVICE REQUEST OCCUPATIONAL THERAPY INITIAL EVALUATION Patient seen from 0930 to 0950 on GC5W unit for 20 minutes. Reason for Admit: 83 yo transfer from [facility] s/p fall leaving [facility]. Diagnosis: Left frontal/parietal/temporal SDH and 4 mm midline shift L sided facial abrasion L hand laceration bruising contusion to bilateral knees Precautions/Activity Order: High falls, full code, progressive mobility Procedures this admit: None Past Medical and Surgical History: PAST MEDICAL HISTORY: Arthritis, asthma, chronic anemia, CAD (s/p NSTEMI 2021), GERD, HTN, pulmonary hypertension, morbid obesity, seizure disorder, seasonal allergies, cerebral amyloid angiopathy, prior SAH, DVT (no longer on eliquis) PAST SURGICAL HISTORY: PCI (2021) Eye surgery, b/L knee surgery, b/L shoulder surgery, SUBJECTIVE: Patient Subjective: Are you sure I am at [facility]? Patient Identified Goal(s):none stated Home Living Situation- Pt is a poor historian- unclear of accuracy Prior Functional Status: Pt reports that she ambulates with a wheeled walker and is independent with ADLs Assistance Available at Home: Daughter involved but unclear if pt lives with daughter Patient lives in a ? story home 0 stairs to enter. Full Bathroom on 1 level, Bedroom on 1 level. Equipment available at home: wheeled walker Per geriatrics note:Before this admission Patient was living with her DTR and MILE and just moved to her own home like a week ago to try to live independently, by herself. Dtr states no concerns of Memory impairment. Able to do her medications, telephone use and ambulation with walker. As per DTR she is very sharp and wanted to try to live by herself more independently. OBJECTIVE: Patient Identification: patient's id band and date of . Risks and benefits of occupational therapy: Patient informed of risks and benefits of treatment Appearance: supine, IV, EKG, pulse ox, BP cuff, external cath, L forehead lac Alertness: Awake Affect: anxious Cooperation/Behavior: confused but cooperative Communication: perseverative Pain: Pain rating: no pain reported Pain Relief Interventions Implemented: None required; No pain at this time Self Care: Assistance Level Dep Max Mod Min CG CS DS MS I Set-Up Comment Feeding x x Grooming/Hygiene x x Bathing:UB x Simulated sponge bathing Bathing:LB x Simulated sponge bathing Dressing:UB x Anticipated to don shirt Dressing: LB x Anticipated to don pants Toileting x Anticipated Transfers/Bed Mobility: Assistance Level Dep Max Mod Min CG CS DS MS I Set-Up Comment Toilet Transfers x2 anticipated Bed Transfers x2 Sit to stand from EOB to wheeled walker- min Ax2 Pt ambulated ~8ft using wheeled walker with min A cues for walker management and safety Bed Mobility x Supine to sit EOB Endurance for Self Care: Impaired Static Sitting Balance: WFL Dynamic Sitting Balance: WFL UE Motor: BUE AROM grossly WFL, strength not formally assessed Vision/Perception: not formally assessed appears WFL Cognition: Orientation: Oriented to self, not oriented to place, date or situation Follows Commands: one step commands Attention: perseverative Memory: Impaired, difficulty recalling info provided in session Problem Solving: Impaired Safety/Judgement: Impaired Sequencing: Impaired Patient/Family Education: Instructed patient in roles of therapy, importance of OOB activity and occupational engagement, discharge planning, fall prevention Patient up in chair with call light in reach. Chair alarm intact. DME: With Patients permission ordered no equipment via [employer] Order. If any questions contact [facility] DME Provider at [phone]. 07/30/2023 6 Clicks Daily Activity OT Help from another person Eating meals 3 Help from another person taking care of personal grooming 3 Help from another person bathing 2 Help from another person putting on and taking off regular upper body clothing 3 Help from another person putting on and taking off regular lower body clothing 2 Help from another person toileting 2 OT 6 Clicks Score 15 6 Click Score Guidelines: 1 - Unable = Total/Dependent Assist 2 - A lot = Max/Moderate Assist 3 - A little = Minimum/Contact Guard Assist/Supervision 4 - Non = Modified Wilson/Independent ASSESSMENT: Recommend further therapy services in a Skilled Rehab Setting once medically cleared. Will continue to follow patient while in hospital as appropriate. Rehabilitation Potential: Good Problem List: decreased ADLs, decreased endurance, decreased functional transfers/mobility, impaired balance, decreased cognition, decreased home management tasks/IADLs, and decreased functional activity tolerance Goals (to be achieved by discharge from acute care): Patient will perform grooming with Modified Independent Patient will dress upper body with Distant supervision Patient will dress lower body with Contact Guard Patient will perform bed mobility with Close supervision Patient will perform bathing with Contact Guard Patient will perform toileting with Contact Guard Patient will perform bed transfers with Close supervision Patient will perform commode transfers with Close supervision Patient will follow 3 step directions with min VCs Patient will demonstrate orientation to place, date and situation with 100% accuracy PLAN: Carly Marcelino will be seen 1-3 times a week. Treatment to include: Functional AROM/Strengthening, functional mobility training, ADL retraining, functional endurance activities, cognitive retraining, home program instruction, home management retraining, functional task simulation, adaptive equipment / compensatory strategy training, patient / family education and discharge planning, referral to appropriate support services, and pain Management able to discuss the evaluation findings and treatment plan with the patient/family. The patient/family did participate in the development of plan and goals. Valerie Us OT NA = Not Assessed, I = Independent, MS = Modified Independent, Sup = Supervised, Set up = Physical Assistance for Set-up Only, Min = Minimal Assistance, Mod = Moderate Assistance, Max = Max assistance; Dep = Dependent; AROM = Active Range of Motion;PROM=Passive Range of Motion; MMT = Manual Muscle Test; UB = Upper Body; LB = Lower Body SPEECH-LANGUAGE PATHOLOGY [facility] EVAL 5-207/1 Referral received, chart reviewed and history is noted. Time In: 1130 Time Out: 1154 Session Duration: 19 minutes Patient identified by patient/armband stating name and date of . Date of Admit: 07/29/23 Reason for Consult: cog eval History/Diagnosis: 83 year old year old female with a history of HTN/HLD, CAD(Nstemi s/p PCI RCA, Carotid stenosis, chronic anemia, GERD, Pulmonary Htn, seizure disorder, cerebral amyloid angiopathy, prior SAH and recent DVT presenting to ED on 07/29/2023 for fall. Injuries: Left subdural hematoma with 4mm midline shift L sided facial abrasion L hand laceration Bruising contusion to bilateral knees Precautions: Delirium, Fall; Full code. Imaging: CTH 07/29/23 Sequelae of traumatic brain injury with expected continued evolution of left holohemispheric subdural hematoma, stable mass effect, and rightward midline shift. Unchanged small dorsal left frontal subcortical hemorrhages suggestive of low-grade diffuse axonal injury. CTH 07/29/23 1. Acute left convexity heterogeneous subdural hematoma measuring up to 1.2 cm. 2. Trace parafalcine and small bilateral tentorial leaflet subdural hemorrhages. 3. Small cortical/subcortical hemorrhagic contusions in the dorsal left frontal lobe. 4. 3 mm of [id number] midline shift. Prior Level of Functioning: Will need to verify information with family- Patient reports she lives with her daughter and son-in-law and is independent with all ADLs and IADL. Family reportedly assists as needed with tasks. SUBJECTIVE: Patient subjective/goals: The patient was seated upright in chair. Now was bandage around forehead as nurse reports patient pulled out sutures recently. I'm just waiting for my daughter . Pain: Scale (if yes): 0/10 Location: N/A OBJECTIVE: LANGUAGE/COGNITIVE TREATMENT - Patient presenting with paranoid behaviors verbalizing, I don't know if I can trust you. I thought you were here to finish me off . Patient apprehensive to accept PO from INSPECTOR CHIEF. Patient also demo paranoid behaviors re: other staff presence and monitors. - INSPECTOR CHIEF able to increase patient comfort slowly over time of session through verbal discussion. Patient was not receptive to INSPECTOR CHIEF review of prior session held earlier this date, factual information and/or verbal reasoning presented. - Expressive language was intact throughout spontaneous output this session - Patient followed basic instruction and direct commands throughout this session - Patient able to to ID that she has dentures, specifics regarding and presence. INSPECTOR CHIEF cleansed and provided to patient. Patient participated in choice making throughout session including whether to I'ly complete don of dentures and self feeding vs accepting assistance. - Patient with poor orientation to place and situation; INSPECTOR CHIEF provided review with specific details. Patient then reporting hospital to be despite ongoing review of current place/facility. Later reports typically receives care at [facility]. CLINICAL BEDSIDE SWALLOW EVALUATION Current Diet NPO Dentition Full upper denture Dental Repair Partial lower denture Oral Hygiene WFL Oxygen Requirement Room air SpO2 97% Temperature 98.6 (@0800) Chest Imaging No current imaging of the aerodigestive tract. WBC WNL Clinical Assessment: Oral Motor Exam: Lingual ROM: Protrusion: + Elevation/depression: + Lateralization: + Lingual Strength:+ Labial ROM: Protrusion: + Retraction: + Velum: Absent uvula; Diminished velar elevation b/l Patient and INSPECTOR CHIEF administered all consistencies presented during this assessment. [place] Swallow Protocol: Patient decline participation Clinical Assessment Consistencies presented Puree: Applesauce via tsp x~2oz Soft/Regular Solid: 1 Larissa Doone cookie Thin Liquid: Water via straw x~3oz Oral Phase - Adequate oral acceptance - Slow bolus breakdown with pocketing within the R buccal cavity - Inattentive to task of eating with talking and other activity with bolus still unmasticated in R cheek. - Eventual full bolus breakdown - Functional oral transit; slight oral holding of liquids prior to initiation of transit - Full oral clearance achieved eventually - Liquid wash is beneficial Pharyngeal Phase - Successive swallows were elicited - No overt s/s of airway compromise exhibited - Occasional audible swallow - Vocal quality remained unchanged. RISK ASSESSMENT Dysphagia Risk Factors: Predisposing: GERD Seizure disorder SAH Clinical signs of possible chronic dysphagia: None Precipitating: L SDH with 4mm MLS Factors contributing to aspiration related pulmonary complications: Given diminished pulmonary clearance, preserved immune response, and preserved bacteriological contents patient risk for aspiration related pulmonary complication is currently perceived to be low. Positive Impact Negative impact Pulmonary Clearance Medical Conditions (COPD, CHF, asthma) X Reduced function (reduced mobility/increased dependence for care) X Pulmonary health (h/o smoking, need for supplemental O2, need for inhaled medications) X Immune Response Nutritional Status X Medical co-morbidities X Presence of current infectious process X Bacteriological Contents Dependencies for oral care X Dental care/repair X Oral hygiene X Xerostomia X Diabetes X Acid Suppression therapy (PPI, H2 Blockers) X Education: The patient was educated on the results and recommendations of this evaluation. The patient would benefit from further education and caregiver involvement to achieve understanding of educated material. ASSESSMENT: Impression: Bedside swallow evaluation conducted with through feeding observations only given patient declined participation in [place] Swallow Protocol. Patient consumed varying solid consistencies and thin liquids without overt s/s of airway invasion this session. Provided regular texture solids, patient exhibited slow incomplete mastication cycle with pocketing of partially masticated bolus in R buccal cavity. Patient was inattention to task of eating with talking and other activities completed prior to finishing bolus breakdown and clearance of oral cavity. Patient appears appropriate to initiate a PO diet including regular texture solids and thin liquids with set up assistance and intermittent supervision as well as oral checks at end of all PO intake to ensure full oral clearance.If patient persistently exhibits pocketing of solids or difficulty/incomplete breakdown, then a diet downgrade may be necessary. PLAN: Treatment Modalities: Cognition, dysphagia Frequency: 1-3x/week Goals: Short Term Goals (to be achieved by discharge from hospital): Short Term Goals (to be achieved by discharge from hospital): The patient will recall orientation information and daily events with 80% accuracy given min-no cues to improve STM and to learn to implement use of memory aids. The patient will recall 3 units of functional information immediately and with a 5-10 minute delay with use of strategies and min cues in 3/5 trials to improve encoding and retrieval of new information. The patient will demonstrate sustained attention to task/topic for 5-10 minutes with less than 3 redirections to increase concentration and participation in ADL's. The patient will complete basic level problem solving/reasoning tasks with 80% accuracy given min cues to increase safety and judgement in current environment The patient will complete basic-moderate level organization tasks (sequencing, convergent/divergent reasoning tasks) with 80% accuracy to improve mental organization for basic conversation and sequencing of daily tasks Language The patient will complete moderate level comprehension tasks (i.e., following directives, picture/object ID, YES/NO questions, WH questions, open ended questions) with 80% accuracy given min cues to improve comprehension of information in current environment. The patient will complete moderate+ level expression tasks (i.e., repetition, automatics, confrontational naming, phrase/sentence completion, picture description, spontaneous production) with 90%< accuracy in order to improve effectiveness and efficiency with verbal communication. Swallow The patient will consume regular/thin consistency diet with complete bolus breakdown and clearance and without clinical indication of airway invasion or decline in cardiopulmonary status across 3-5< days. The patient/caregiver/family will demonstrate adequate return of knowledge of all compensatory strategy/instruction to effectively assist the patient in immediate safety with oral intake and swallowing. Prognosis: (+) Cooperation (-) PMH (+) New onset of acute issues (-) Age (-) Cognitive impairments Recommendations: - Instrumental assessment not warranted - Initiate regular/thin consistency diet - Set up assistance and intermittent supervision - Oral checks at end of all PO intake to ensure full oral clearance. - If patient persistently exhibits pocketing of solids or difficulty/incomplete breakdown, then a diet downgrade may be necessary. - Administer medications whole with thin liquid wash; 1 tablet per swallow; Oral cavity check post medications (nguyễn R cheek) small bites, small sips, slow rate, alternate solids/liquids, OOB to chair at 90 degree angle when able; otherwise, upright at 60< degree angle for all PO intake - Rigorous oral care Q3-4 with suction toothbrush kit in order to promote moistening of mucosa and reduce risk for colonization of oropharyngeal bacteria - Anticipate INSPECTOR CHIEF services needed in discharge setting; consider PMR consult - If patient were to return home at this time, would benefit from Constant Supervision- Person may not be left alone. Requires a caregiver to watch 24 hours a day. Patient would benefit from assistance with ADLs and IADLs Toshia Sue CCC-INSPECTOR CHIEF, MS-CCC/INSPECTOR CHIEF Speech and Language Pathologist Secure chat preferred ([phone] M,T,TH, F) Pager [phone] Associated Order(s): IP INSPECTOR CHIEF SERVICE REQUEST SPEECH-LANGUAGE PATHOLOGY ACUTE EVAL AC5- Time In: 951 Time Out: 1029 Session Duration: 37 minutes Referral received, chart reviewed and history is noted. Patient identified by patient/armband stating name and date of . Date of Admit: 07/29/23 Reason for Consult: cog eval History/Diagnosis: 83 year old year old female with a history of HTN/HLD, CAD(Nstemi s/p PCI RCA, Carotid stenosis, chronic anemia, GERD, Pulmonary Htn, seizure disorder, cerebral amyloid angiopathy, prior SAH and recent DVT presenting to ED on 07/29/2023 for fall. Injuries: Left subdural hematoma with 4mm midline shift L sided facial abrasion L hand laceration Bruising contusion to bilateral knees No past medical history on file. No past surgical history on file. Precautions: Delirium, Fall; Full code. Imaging: CT 07/29/23 Sequelae of traumatic brain injury with expected continued evolution of left holohemispheric subdural hematoma, stable mass effect, and rightward midline shift. Unchanged small dorsal left frontal subcortical hemorrhages suggestive of low-grade diffuse axonal injury. CTH 07/29/23 1. Acute left convexity heterogeneous subdural hematoma measuring up to 1.2 cm. 2. Trace parafalcine and small bilateral tentorial leaflet subdural hemorrhages. 3. Small cortical/subcortical hemorrhagic contusions in the dorsal left frontal lobe. 4. 3 mm of [id number] midline shift. Prior Level of Functioning: Will need to verify information with family- Patient reports she lives with her daughter and son-in-law and is independent with all ADLs and IADL. Family reportedly assists as needed with tasks. SUBJECTIVE: Patient subjective/goals: Patient was alert and pleasantly cooperative throughout session. Maintained upright postioning in chair throughout session. Pain: Scale (if yes): 0/10 Location: Notes shoulder discomfort OBJECTIVE: Hearing: Hearing appears adequate at conversational level intensities. Patient reports adequate hearing of INSPECTOR CHIEF. Vision: Patient reports she has poor vision although demo ability to participate in basic visual tasks this date which are present in large, bold print. Language: Auditory Comprehension: -1 step commands: 5/5 -2 step commands: 0/5 -[place]/biographical y/n questions: 4/5 -Abstract y/n questions: 3/7 however, patient perseveratively responded no to all questions therefore, accurate responses considered unreliable. -Conversation level: Reduced comprehension exhibited with perseveration of prior topics and/or no response, and/or unrelated response provided. Reading Comprehension: -Reading comprehension is intact at the digit, word, and phrase level. Breakdowns occur at the simple sentence level. -Oral Reading skills are intact for digits, words, and phrases. Breakdown occurs at simple sentence level. Verbal Expression: Language production is variable in direct tasks and may be impacted by deficits in attention and organization. Spontaneous productions are perseverative in nature, but free of paraphasias and/or anomia. -Biographical information: WFL -Automatics: Intact for digits 1-20 -Confrontation naming: Objects: 3/3; Line drawings: 5/8; +2 with phonemic cue (patient I'ly demo circumlocution x1 Oh, my mother used to play that. It was wonderful. ---Violin) -Repetition: Intact -[place] phrase completion: Intact -Open ended phrase completion: Intact -Responsive naming: Intact -Response to open ended questions: Intact; perseverative, but with clarifications or repetitions of question, appropriate responses achieved. -Picture description: Able to identify and express 1-salient event/situation; provided cuing and carrier questions, patient able to express additional details regarding picture with incomplete thought expression and anomia x2 -Spontaneous productions: Written Expression: -Functional writing skills (name, address) are impaired. Perseverative productions of letters and digits. Does demo ability to write first name with cuing/prompting to restart. Frequent writing directly on top of other written items. Demo intermittent awareness of errors No, that doesn't look right . Appears to attempt intermittent self correction with poor effectiveness. Cognition: Brief Cognitive Status Exam Subtest Weighted Raw Score Orientation 0/8 Time Estimation 0/4 Confrontation Naming 4/4 (Not calculated) Mental Control 0/12 Clock Drawing 0/4 Incidental Recall 2/8 Inhibition Not administered d/t vision Verbal Production Not administered secondary to patient unable to redirect to task Total Raw Score (Maximum=58) Unable to calculate given incomplete subtests Classification Level by Age and Education Unable to to calculate, but suspected to fall within the very low classification given severity of impairments of all other subtests WMS-IV Older Adult Record Form Orientation: PERSON: (+) name PLACE: (- I was in the hospital because I wasn't feeling well last night, following discussion regarding situations) facility type; (-) hospital name; (-) city TIME: (-) [place]; (-) [place]; (-) [place]; (-) Y[place]; (-) [place] SITUATION: (-) Brief Cognitive Status Exam: Will complete in future session Memory: -Delayed Recall: 03/15 after 5-10 minute delay -Working Memory: IMP at the basic level Attention: -Selective:IMP -Sustained: IMP -Alternating: IMP -Initiation: Delayed; appears related to attention impairments and possible delayed auditory processing -Impulse control: Verbal and physical impulsive behaviors exhibited; suspect this may be exacerbated during dynamic tasks Problem Solving/Reasoning: -Diminished for basic level hospital related scenarios. Once prompted able to demo ability to locate call button on bed and activate; repeatedly activates call button without Id'd needs. -IMP mental flexibility for generating multiple alternatives -Reasoning skills are impaired at the basic level Organization: -IMP for expression of thoughts/ideas at the basic level Further assessment indicated as able. - Safety/Judgement: IMP; demo basic level understanding of dangerous situations (e.g. Cookie Theft picture), but does not demo full awareness and implementation of safety precautions, judgement regarding functional situations. - Insight: IMP; limited awareness of injuries, need for assist and ability to perceive current situation Intermittent awareness of errors made during this assessment; attempts to self correct with poor effectiveness - Pragmatic Behavior: Pleasant, cooperative, confused *After leaving room, patient calling out for Nurrrse. Nurse. Nursing staff addressed. Speech Intelligibility: WFL at spontaneous level of production Voice: Respiration: WFL coordination of respiration and phonation Phonation: WFL quality and adequate intensity Swallowing Current Diet NPO Dentition Some natural Full upper and partial lower denture Dental Repair Missing some Denture in good repair Oral Hygiene WFL Secretion Mngt Adequate Oxygen Requirement Room air SpO2 97% Temperature 98.6 (@0800) Chest Imaging No current imaging of the aerodigestive tract. WBC WNL Clinical Assessment: Held pending physician approval to accept PO. Education: The patient was educated on the results and recommendations of this evaluation. The patient demo understanding of educated material. ASSESSMENT: Impression: Assessment of cognitive function was conducted with administration of Brief Cognitive Status Exam with a total score of unable to be calculated given incomplete subtests. The patient however, demo severe cognitive impairments with a suspected overlay of language deficits. Areas of deficit include basic orientation (place, time, situation), attention, organization, executive function, and insight. Language is characterized by perseverative expression of thoughts/ideas/topics with intermittent language errors during confrontation naming and picture description tasks. Patient is stimulable for use of cuing strategies. Written language is impaired at the basic level (name and single word) with question of visuospatial component. Patient intermittently aware of general errors with intermittent attempts to self correct which are perseverative and ineffective. Perseveration continues throughout all motor tasks. Receptive language is intact at basic level with breakdowns at moderate level information and 2-step simple command level. Reading comprehension is impaired at the simple sentence + level. The deficits identified during this assessment negatively impact the patient's ability to safely and efficiently complete ADL and IADL tasks within the current, home and community environments without direct assistance. Bedside swallow evaluation was held pending clearance from medical team for PO intake. PLAN: Treatment Modalities: Cognition Frequency: 1-3/wk Goals: Short Term Goals (to be achieved by discharge from hospital): The patient will recall orientation information and daily events with 80% accuracy given min-no cues to improve STM and to learn to implement use of memory aids. The patient will recall 3 units of functional information immediately and with a 5-10 minute delay with use of strategies and min cues in 3/5 trials to improve encoding and retrieval of new information. The patient will demonstrate sustained attention to task/topic for 5-10 minutes with less than 3 redirections to increase concentration and participation in ADL's. The patient will complete basic level problem solving/reasoning tasks with 80% accuracy given min cues to increase safety and judgement in current environment The patient will complete basic-moderate level organization tasks (sequencing, convergent/divergent reasoning tasks) with 80% accuracy to improve mental organization for basic conversation and sequencing of daily tasks Language The patient will complete moderate level comprehension tasks (i.e., following directives, picture/object ID, YES/NO questions, WH questions, open ended questions) with 80% accuracy given min cues to improve comprehension of information in current environment. The patient will complete moderate+ level expression tasks (i.e., repetition, automatics, confrontational naming, phrase/sentence completion, picture description, spontaneous production) with 90%< accuracy in order to improve effectiveness and efficiency with verbal communication. Prognosis: (+) Cooperation (-) PMH (+) New onset of acute issues (-) Age (-) Cognitive impairments Recommendations: - INSPECTOR CHIEF to complete bedside swallow evaluation pending approval for PO intake - HOB elevated to 30< degree angle at all times - Rigorous oral care Q3-4 with suction toothbrush kit in order to promote moistening of mucosa and reduce risk for colonization of oropharyngeal bacteria - Anticipate INSPECTOR CHIEF services needed in discharge setting; consider PMR consult - If patient were to return home at this time, would benefit from Constant Supervision- Person may not be left alone. Requires a caregiver to watch 24 hours a day. Patient would benefit from assistance with ADLs and IADLs Toshia Sue CCC-INSPECTOR CHIEF, MS-CCC/INSPECTOR CHIEF Speech and Language Pathologist Secure chat preferred ([phone] M,T,TH, F) Pager [phone] Associated Order(s): IP GERIATRIC CONSULT Images from the original note were not included. GERIATRIC CONSULTATION Patient Name: Carly Marcelino Location: [facility] PCP: No primary care provider on file. Geriatric Medicine team has been consulted by Kev Mederos MD to provide recommendations for the following problem(s): Falls evaluation Pain evaluation Multiple medications effecting the older adult Our opinion has been requested to help clarify the presenting problem(s) and provide disease management recommendations and recommendations for an appropriate plan of care. The following note reflects my opinion and services performed, as well as recommendations pertaining to treatments, medications and post-acute care History was obtained by: discussion with nursing staff and review of chart review of hospital chart review of transfer information HPI: 83 year old year old female with a history of HTN/HLD, CAD(Nstemi s/p PCI RCA, Carotid stenosis, chronic anemia, GERD, Pulmonary Htn, seizure disorder, cerebral amyloid angiopathy, prior SAH and recent DVT presenting to ED on 07/29/2023 for Fall leading to Traumatic brain injury with SDH. Reason for consult: Cognition impairment Called Daughter HEBERT Roman Daughter [phone] Before this admission Patient was living with her DTR and MILE and just moved to her own home like a week ago to try to live independently, by herself. Dtr states no concerns of Memory impairment. Able to do her medications, telephone use and ambulation with walker. As per DTR she is very sharp and wanted to try to live by herself more independently. Last few weeks Anxiety issues, was on Xanax 0.25 BID. Doing well with meds. Patient recently lost her son, in ([place]??)and patients Dtr is also going through a new medical diagnosis which has made patient more anxious and stressfully. HCPOA: None, DTR is Next of kin. Code: DTR states have never discussed till now, she will try to have conversation once pt is more alert. Full code. A/P: # Delirium Mixed, Hypoactive 2/2 ICH, Fall. # Possible underlying Cognitive impairment, Unable to assess due to confusion. No previous Diagnosis of dementia(As per family) Precautions: - promote sleep-wake cycle, nocturnal quiet hours 10 p to 7 am - frequent re-orientation, encourage family visitation - encourage use of glasses, hearing aids if available - daily mobilization, consider music therapy, art therapy - avoid lines and restraints, order sitter if needed - avoid anticholinergics, psychoactive meds, minimize opioids Check TSH and B12. Neurosurgery managing SDH. Will avoid adding new medications for hypoactive delirium, Prefer Reorientation every 4 hrs, More family visitations, Sitter if needed. Avoid pain episodes Avoid constipation and urinary retention. # Acute pain from truama: Avoid painful episodes with PRN oxycodone and Tylenol scheduled Q6. # Seizure precaution: continue Keppra 750 mg BID IV X 7 days. # Anxiety/adjustment with new diagnosis of ICH: Pt was requiring Xanax at home BID. She was scare at home that her Brain will bleed anytime. # Insomnia: Can try melatonin 3mg at bedtime. #Medication management - current and outpatient medication list reviewed #Debility - PT/OT evaluation #At risk for malnutrition - nutrition evaluation Wt Readings from Last 5 Encounters: 07/29/23 183 lb 11.2 oz (83.3 kg) #Rule dysphagia Currently NPO, Bedside eval pending. - INSPECTOR CHIEF for swallow evaluation Advanced care planning, goals of care - NO living will and hcpoa Full code Discharge planning - tentative discharge plan is possible Snf facility for few weeks and later Home with Daughter with [facility] services As per today's assessment pt will need 24X7 supervision. She will require Assistance with Adls and IADLs after discharge. Thank you for the consultation and allowing the Geriatric Medicine service to work with you for the benefit of your older patient. Jer Serra MD Department of Geriatric Medicine Number of children: 2 kids, Son this year. Primary Caregiver: DTR Supportive family or social network: Yes Receiving community services: Yes Advance Care Planning: Code Status: Full Code Living Will: No Health Care Power of Plunger Scoop Operator: No Review of Systems: Review of Systems Constitutional: Positive for malaise/fatigue. Negative for chills and fever. HENT: Negative for hearing loss. Eyes: Negative for blurred vision. Respiratory: Negative for cough and shortness of breath. Cardiovascular: Negative for chest pain, palpitations and leg swelling. Gastrointestinal: Negative for abdominal pain and heartburn. Genitourinary: Negative for dysuria and frequency. Musculoskeletal: Positive for back pain and joint pain. Negative for myalgias. Skin: Negative for rash. Neurological: Negative for dizziness, loss of consciousness and weakness. Psychiatric/Behavioral: Positive for depression and memory loss. The patient is nervous/anxious and has insomnia. Patient's Medications, Past Medical, Surgical, Social, and Family History have been reviewed. Please see relevant sections in [employer] EMR for details. Physical Examination: BP 158/77 Pulse 83 Temp 98.6 F (37 C) (Oral) Resp 12 Ht 5' 7 (1.702 m) Wt 183 lb 11.2 oz (83.3 kg) SpO2 95% BMI 28.77 kg/m Physical Exam Neurological: Mental Status: She is disoriented. Motor: Weakness present. Coordination: Coordination abnormal. Gait: Gait abnormal. Psychiatric: Attention and Perception: She is inattentive. Mood and Affect: Mood is depressed. Behavior: Behavior is slowed. Cognition and Memory: Cognition is impaired. Memory is impaired. She exhibits impaired recent memory and impaired remote memory. Kuo diagnostic studies personally reviewed: CBC WBC RBC Hgb Hct MCV RDW Plt 07/30/23218 9.1 3.53 10.3 32.4 92 14.5 224 07/29/23 1722 8.5 4.15 12.2 38.3 92 14.3 252 07/29/23 1339 8.9 3.93 12.0 35.7 91 14.3 214 Basic Metabolic Panel (Last 5 results in the past 365 days) Na K Cl CO2 Gap Glu BUN Cr Ca Mg PO4 07/30/23218 139 4.0 104 30 9 104 18 0.71 8.8 07/30/23 0219 3.3 07/30/23 0219 1.9 07/29/23 1722 141 4.1 103 29 13 103 18 0.77 9.3 07/29/23 1339 138 4.1 102 28 12 94 20 0.78 9.1 05/07/23 1113 134 99 24 91 Comment: The [place] [employer] (ADA) provides guidance for cutoff values for fasting glucose and random glucose. The ADA defines fasting as no caloric intake for at least 8 hours. Fasting plasma glucose results between 100 to 125 mg/dL indicate increased risk for diabetes (prediabetes). Fasting plasma glucose results greater than or equal to 126 mg/dL meet the criteria for diagnosis of diabetes. In the absence of unequivocal hyperglycemia, results should be confirmed by repeat testing. In a patient with classic symptoms of hyperglycemia or hyperglycemic crisis, random plasma glucose results greater than or equal to 200 mg/dL meet the criteria for diagnosis of diabetes. Reference: Standards of Medical Care in Diabetes 2016, [place] [employer]. Diabetes Care. 2016.39(Suppl 1). 19 0.73 9.3 05/06/23 0358 135 102 23 87 Comment: The [place] [employer] (ADA) provides guidance for cutoff values for fasting glucose and random glucose. The ADA defines fasting as no caloric intake for at least 8 hours. Fasting plasma glucose results between 100 to 125 mg/dL indicate increased risk for diabetes (prediabetes). Fasting plasma glucose results greater than or equal to 126 mg/dL meet the criteria for diagnosis of diabetes. In the absence of unequivocal hyperglycemia, results should be confirmed by repeat testing. In a patient with classic symptoms of hyperglycemia or hyperglycemic crisis, random plasma glucose results greater than or equal to 200 mg/dL meet the criteria for diagnosis of diabetes. Reference: Standards of Medical Care in Diabetes 2016, [place] [employer]. Diabetes Care. 2016.39(Suppl 1). 15 0.70 8.7 LFT's (last 3 years, up to 5 values) (Last 5 results in the past 3 years) T Prot Albumin D Bili T Bili Alk Phos ALT AST 05/07/23 1113 6.3 0.4 05/06/23 0358 5.4 0.3 05/04/23 2309 6.1 0.2 05/03/23 2310 5.8 0.2 05/03/23 1323 5.8 0.4 TSH None No results found for: B12 , VITD25 Imaging personally reviewed and agree with the findings of the radiologist Results for orders placed during the hospital encounter of 07/29/23 CT HEAD W/O CONTRAST Narrative EXAMINATION: CT HEAD W/O CONTRAST 07/29/2023 10:12 PM CLINICAL HISTORY: Subdural hematoma ASSOCIATED DIAGNOSIS: Subdural hematoma ORDERING PROVIDER: YUNIOR SANCHEZ TECHNOLOGISTS NOTE: COMPARISON: Head CT from 07/29/2023 1629 hours TECHNIQUE: Thin axial imaging of the head was performed without intravenous contrast. FINDINGS: Expected continued evolution of left mixed density left hemispheric subdural hematoma with mild compression of the left cerebral hemisphere left lateral ventricle. Subdural blood products measure 11 mm in greatest thickness over AP ventral left frontal convexity. Rightward midline shift of 4 mm is similar to prior, accounting for interobserver measurement differences. Unchanged layering subdural hemorrhages along the tentorial leaflets. Subcortical parenchymal hemorrhages in the dorsal left superior and middle frontal gyri at the vertex are unchanged. No significant ventricular trapping. No new hemorrhage or CT evidence of acute territorial infarction. Brain volume and ventricular caliber are within normal limits. Patchy hypodensities in the periventricular white matter are nonspecific but favor sequela of moderate chronic small vessel ischemia. No acute abnormality of the paranasal sinuses and tympanomastoid cavities are clear. Impression : Sequelae of traumatic brain injury with expected continued evolution of left holohemispheric subdural hematoma, stable mass effect, and rightward midline shift. Unchanged small dorsal left frontal subcortical hemorrhages suggestive of low-grade diffuse axonal injury. MACRO: None I spent a total of 84 minutes spent providing patient care on 07/30/2023: Time-based billing justifications: Reviewing (chart, labs, and other clinical notes) Obtaining history (or reviewing separately obtained history) Patient visit (including performing a medically appropriate exam) Counseling/educating the patient/family/caregiver Referring/communicating with other health transitional care manager - when not reported separately Charting in [facility] Associated Order(s): IP PHYSICAL THERAPY SERVICE REQUEST PHYSICAL THERAPY ACUTE EVALUATION Referral received, chart reviewed. Patient seen from 9:30 to 9:50 on 5W unit for 20 minutes. Eval + treat. Co-eval with OT. Patient required the skills of two therapists for safe mobility and high medical complexity of the patient. Admit date/time: 07/29/2023 1:28 PM Reason for Admit: 83 yo transfer from [facility] s/p fall leaving [employer]. Diagnosis: Left frontal/parietal/temporal SDH and 4 mm midline shift L sided facial abrasion L hand laceration bruising contusion to bilateral knees Precautions/Activity Order: High falls, full code, progressive mobility Procedures this admit: None Past Medical and Surgical History: PAST MEDICAL HISTORY: Arthritis, asthma, chronic anemia, CAD (s/p NSTEMI 2021), GERD, HTN, pulmonary hypertension, morbid obesity, seizure disorder, seasonal allergies, cerebral amyloid angiopathy, prior SAH, DVT (no longer on eliquis) PAST SURGICAL HISTORY: PCI (2021) Eye surgery, b/L knee surgery, b/L shoulder surgery, Identification was verified by patient verbalizing his/her name and date of . and patient's id band and date of . Risks and Benefits of physical therapy: Patient informed of risks and benefits of treatment SUBJECTIVE: Patient Subjective: Where is my daughter? 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 Patient is a poor historian Home: 0 steps to enter rails. 0 steps to bedroom/bathroom rails. Assistance available: lives with daughters? Equipment available: rolling walker? 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, IV, and Sequential Compression Devices (SCDs), kunz bruising on (B) LE Behavior: Impaired, Awake, pleasant & cooperative Oriented x self Follows 1 step commands inconsistently and with cues, 75% of the time Pain: Site/Location: (B) LE; Pain Scale: moderate/10 Pain Relief Interventions Implemented: Positioning, Rest, and Notified Nurse Passive ROM: Not formally tested however observed WFL for basic level of mobility Strength/Active ROM: Grossly at least 3/5 throughout Mobility: Rolling to left: minimal assistance x2 Sidelying to sit: minimal assistance x2 Sitting balance: Good Sit to stand: minimal assistance x2 Transfers: minimal assistance x2 Ambulation/Gait: Patient walked 10 ft with RW min Ax2, slow pace, flexed posture, decreased (B) LE step lengths. Endurance: Impaired Patient/Family Education: Instructed Patient in roles of therapy. Instructed Patient in roles, goals, treatment plan: demonstrated good verbal understanding. Instructed patient in Exercise Program for Ankle pumps x10 reps Patient up in chair with call light in reach. Chair alarm intact. DME: With Patients permission ordered no equipment via [employer] Order. If any questions contact [facility] DME Provider at [phone]. 07/30/2023 6 Clicks Basic Mobility PT Difficulty turning over in bed 3 Difficulty sitting down and standing up from a chair with arms 3 Difficulty moving from lying on back to sitting on the side of the bed 3 Help from another person moving to and from bed to a chair 3 Help from another person to walk in hospital room 2 Help from another person climbing 3-5 steps with a railing 1 PT 6 Clicks Score 15 6 Click Score Guidelines: 1 - Total = Requires total assistance, or cannot do at all. 2 - A lot = Requires a lot of help (maximun to moderate assistance) Can use assistive devices. 3 - A little = Requires a little help (supervision, minimal assistance) Can use assistive devices. 4 - None = Does not require any help and does the activity independently. Can use assistive devices. ASSESSMENT: Carly Marcelino is a 83 year old female s/p fall with TBI presents with confusion, decreased strength and endurance, causing patient difficulty with ambulation quality and tolerance. Patient would benefit from acute PT services of gait training, therex, and theract to improve patient ambulation quality/tolerance, transfer skills and strengthening to enhance functional mobility and safety. Recommend further therapy services in a Snf Setting once medically cleared. Will continue to follow patient while in hospital as appropriate. Problems: Pain Decreased ROM/strength Decreased functional mobility Decreased endurance Decreased balance Rehabilitation Potential: Fair Goals (to be achieved by 10 days or by discharge from acute care): Patient will achieve acceptable level of pain control to allow participation in therapy. Patient will increase bed mobility to contact guard assistance Patient will perform sit to/from stand with rolling walker with contact guard assistance Patient will ambulate 50 feet with rolling walker with contact guard assistance Patient will increase ROM/Strength/Endurance/Balance to allow for above goals. Patient/Family independent with exercise program/precautions. PLAN OF CARE: Frequency: Patient to be seen 1-3 times a week Interventions: Functional mobility ROM/Strengthening Home exercise program Discharge planning and equipment ordering as needed Patient /Family education The evaluation findings and treatment plan were discussed with the patient/family. The patient/family indicated understanding and agreement with the plan. Vickie Pete, PT, DPT #[id number] NA = Not Assessed, I = Independent, MS = Modified Independent, Sup = Supervised, Set up = Physical Assistance for Set-up Only, Min = Minimal Assistance, Mod = Moderate Assistance, Max = Max assistance; Dep = Dependent; AROM = Active Range of Motion; PROM = Passive Range of Motion; MMT = Manual Muscle Test; LE = Lower Extremity Associated Order(s): IP SURGERY NEURO CONSULT Images from the original note were not included. NEUROSURGERY CRANIAL TRAUMA H&P Patient Name: Carly Marcelino Primary Care Physician: No primary care provider on file. CONSULTED BY: ED CONSULTED FOR: SDH CHIEF COMPLAINT: fall HPI: This is a 83 year old with PMH of HTN, CAD (NSTEMI, stent in RCA), carotid stenosis presenting to the ED after a fall leaving [employer]. Was transferred to [facility] from [facility] d/t CT with a Left SDH and 4 mm midline shift. Patient tripped and fell leaving [employer]ec[employer], there was no LOC, she remembers the event, c/o mild WISDOM on the L side and pain from cervical collar, no vision changes or vomiting. Recent history of SAH that was managed at [facility], occurred while patient was on eliquis (for history of prior DVT), unclear source but was suspected to be from CAA (cerebral amyloid angiopathy), she was taken off eliquis at that time, had EEG with PLEDs and continued on keppra Additional injuries include: L sided facial abrasion, L hand laceration, bruising contusion to bilateral knees Antiplatelet/Anticoagulant: 81 mg ASA (last dose this morning 9 am) Coags: PTT - in process PT/INR - in process Platelet - 214 Sodium: in process Previous TBI:No PAST MEDICAL HISTORY: No past medical history on file. PAST SURGICAL HISTORY: No past surgical history on file. FAMILY HISTORY: No family history on file. SOCIAL HISTORY: Social History Occupational History Not on file Tobacco Use Smoking status: Not on file Smokeless tobacco: Not on file Substance and Sexual Activity Alcohol use: Not on file Drug use: Not on file Sexual activity: Not on file MEDICATIONS: 81 mg daily ASA 500 mg Keppra BID ALLERGIES: Not on File COMPLETE REVIEW OF SYSTEMS: ROS 02/20 systems negative other than above LABS: CBC/PT/INR WBC RBC Hgb Hct MCV RDW Plt PT aPTT INR 05/19/24 1339 8.9 3.93 12.0 35.7 91 14.3 214 Basic Metabolic Panel None NEURO EXAM: Ox2-3, awake, alert, following commands No UE drift but is tremulous PERRL OS 2mm OD 2mm EOMI No slurred speech, facial droop, tongue protrudes symmetrically RUE 5/5 LUE 5/5 LLE 4+/5 (pain limited) LUE 4+/5 (pain limited) Sensation intact bilat UE And LE to light touch PHYSICAL EXAMINATION: Vital signs reviewed General appearance: bruising and abrasions L side of the face Skin: warm, dry Head: Normocephalic Nose/Sinuses: Nares normal. Neck: supple, trachea midline, C collar in place Lungs: chest symmetric, normal respiratory rate and rhythm Heart: NSR on tele monitor Abdomen: soft, nontender Extremities: bilateral bruising on knees, worse on RT, L hand bruising and laceration Neuro: above RADIOLOGY: 07/29/2023 CTH: (on [facility] from OSH) - 11 mm L frontoparietal SDH along convexity with [address] [address] SCORE: 1. Basal cisterns: 0: Normal 2. Midline shift: 0: Less than or equal to 5 mm 3. Epidural mass lesion: 1: Absent 4. Intraventricular blood or traumatic SAH: 0: Absent Total Score: 2 (Calculated sum + 1) Six Month Mortality: Score 1: 0% Score 2: 7% Score 3: 16% Score 4: 26% Score 5: 53% Score 6: 61% 1. TBI sub-type: SDH: Greater than or equal to 1 cm 2. Laterality: Left 3. Location: Convexity 4. Pupillary response: Both reactive 5. Associated conditions: None 6. Loss of consciousness: None ASSESSMENT/PLAN: This is a 83 year old with PMH of HTN, CAD (NSTEMI, stent in RCA), carotid stenosis presenting to the ED after a fall leaving [employer] with a head injury. On [address] from OSH with 11 mm L side SDH with 4 mm MLS -TICU -Q1 neuro checks -Repeat CT head 4 hours after initial imaging (~ 4PM) -Keppra 750 mg BID x 7 days for seizure prophylaxis (increase from 500 mg home dose) -SBP <170 per trauma guidelines -Ensure labs complete (CBC, BMP, Type and Screen, PT/INT, PTT) -Hold all antiplatelets/anticoagulants -Hold home aspirin -Plts >100, INR <1.4 -Normonatremia, normothermia (<38.0 C) , euvolemia -SCDs only at this time for DVT prophylaxis. Hold SQH at this time - Will continue to follow Patient seen within 30 minutes of initial consultation. Recommendations provided directly to the trauma service. Above plan was discussed within 30 minutes of consult and the staff Dr. Li who agree with the above management. Please call anytime with questions or concerns. Ayanna Ignacio PA-C Neurosurgery Pager - [phone] 07/29/2023 - 2:04 PM Split/Shared Documentation I approve the management plan for this patient and take responsibility for the plan as documented. Independent Interpretation of Tests Performed by Another Physician/ASH: I personally performed, reviewed, and interpreted CTH with findings of SDH with midline shift. Ayanna Ignacio PA-C Teaching Physician Note: I saw and evaluated the patient face to face. I personally obtained the kuo and critical portions of the history and physical exam face to face. I reviewed the PA/WEB PROGRAMMER/resident's documentation and discussed the patient with the PA/WEB PROGRAMMER/resident. I agree with the PA/WEB PROGRAMMER/resident's medical decision making as documented in the PA/WEB PROGRAMMER/resident's note. Artem Li MD documented in this encounter [facility] 08-03-2023 Progress note Formatting of t his note might be different from the original. CASE MANAGEMENT/SOCIAL WORK SNF DC NOTE: Pt has been cleared for transfer to SNF on tomorrow 08/04/23 Pt will be transferred to [facility] via Jerel Gutiérrez and Dmitri ([id number]) at 10am Nursing report may be called to [phone] station 1. please fax dc med list to [phone] Support person notified: HEBERT ALVAREZ (Daughter) [phone] Patient/Family, team aware of above and agreeable. For discharge, please ensure the following is completed: MD to place DC order, reconcile meds, and print narcotics to go with patient to SNF [place] to print Discharge Summary, [place], Summary of Care, Narcotic Scripts, and Signature Page and place in a packet to be given to armored car guard and driver If transport/discharge needs to be adjusted/cancelled, team (MD/RN) to cancel transport, update support person, and update receiving facility. [facility] 08-03-2023 Progress note Formatting of t his note might be different from the original. Social Work/Case Management: Reason for placement: PT/OT Therapies Patient level of care required : Skilled Applicant's potential for returning to community: Convalescent stay:<30 days Prognosis: Fair Rehab Potential: Improve Mental/Behavioral status:Oriented Affect: Calm Social Work Assessment Functional status prior to admission: amb with RW Community agencies active with patient: none Support system: Family support Capacity for independent living/mail inserter plan:Return to independent living Other hospital admissions within the past 60 days: No Other pertinent problems: none [facility] 08-03-2023 History of Present illness Narrative Images from the original note were not included. GERIATRIC PROGRESS NOTE Patient Name: Carly Marcelino Location: [place] [address] Attending: Nyasia Pope MD HPI: 83 year old female with a history of HTN, HLD, b/L JANETTE, CAD s/p LETICIA to RCA, prior DVT, cerebral amyloid angiopathy, non-traumatic SAH, epilepsy, asthma, admitted on 07/29/2023 for 11 mm L side SDH with 4 mm MLS s/p fall while leaving [employer]. NSGY recommended non acute neurosurgical intervention. Course c/b delirium. A/P: Mixed delirium - improved, Alert and Oriented x 3, still mildly inattentive - s/p fall with head trauma, 11 mm L side SDH with 4 mm MLS, urinary retention - promote sleep-wake cycle, nocturnal quiet hours 10 p to 7 am - frequent re-orientation, encourage family visitation - encourage use of glasses, hearing aids if available - daily mobilization, consider music therapy, art therapy - avoid lines and restraints, order sitter if needed - avoid anticholinergics, psychoactive meds, minimize opioids Cognitive evaluation - no memory problems at baseline, functionally very independent - CTH demonstrated moderate chronic small vessel ischemia - no prior cognitive testing - TSH, B12 wnl Medication management - current and outpatient medication list reviewed - agree with scheduled tylenol, low dose oxycodone (not requiring) - agree with holding alprazolam for now, may continue lorazepam prn (not requiring) - continue melatonin 3 mg at bedtime - Keppra x 7 days per NSGY (end 08/05) Debility - s/p fall with head trauma, 11 mm L side SDH with 4 mm MLS - continue PT/OT Advanced care planning, goals of care - no living will / hcpoa, NOK is daughter Hebert Alvarez [phone] - currently full code, daughter to discuss more with patient when cognition improves Discharge planning - tentative discharge plan is SNF, waiting placement Suresh Simental MD INTERVAL HISTORY: Transferred out of TICU to [facility] on 08/01/2023 No events since last visit, awaiting SNF placement TSH, B12 wnl, BMP stable, Hgb 10.4->8.9 over the last few days otherwise CBC stable Patient resting comfortably, no acute concerns or complaints GERIATRIC ROS: Cognitive Status: Alert and Oriented x 3, still mildly inattentive Mood: stable Sleep: good Appetite: recent intake 50-100% Pain: denies currently Mobility: below baseline Bowel Function: Last BM: 08/01 Bladder Function: Kunz Catheter removed Restraint use in last 24 hr: No Antipsychotic/opioid/benzo in last 24 hr: No Current Medications: Current Facility-Administered Medications: losartan (COZAAR) tablet, 50 mg, Oral, Daily, Mohini Nguyễn, CAMERA MAKER-WEB PROGRAMMER, 50 mg at 08/03/23 0811 albuterol (PROVENTIL HFA) 108 (90 Base) MCG/ACT HFA inhaler, 1 Puff, Inhalation, Q4H PRN, Monica Solano MD, 1 Puff at 08/03/23 0615 ferrous sulfate tablet TABS, 325 mg, Oral, Daily, Monica Solano MD, 325 mg at 08/03/23 0811 guaifenesin (MUCINEX) 600 MG 12 hour tablet, 1,200 mg, Oral, 2x Daily, Monica Solano MD, 1,200 mg at 08/03/23 0811 magnesium oxide (MAG-OX) 400 mg (240 mg) tablet, 400 mg, Oral, Daily, Monica Solano MD, 400 mg at 08/03/23 0811 levETIRAcetam (KEPPRA) tablet 750 mg, 750 mg, Oral, 2x Daily, Yunior Sanchez MD, 750 mg at 08/03/23 0811 magnesium hydroxide (MILK OF MAGNESIA) 400 MG/5ML oral suspension, 30 mL, Oral, Daily PRN, Khushboo Gilman MD, 30 mL at 08/01/23 1237 enoxaparin (LOVENOX) 30 MG/0.3ML injection 30 mg, 30 mg, Subcutaneous, 2x Daily, Yunior Sanchez MD, 30 mg at 08/03/23 0811 melatonin tablet, 3 mg, Oral, At Bedtime, Abelino Barber MD, 3 mg at 08/02/232110 atorvastatin (LIPITOR) tablet, 10 mg, Oral, Daily, Abelino Barber MD, 10 mg at 08/03/23 0811 polyethylene glycol (MIRALAX) 17 g packet, 17 g, Oral, Daily, Yunior Sanchez MD, 17 g at 08/03/23 0811 LORazepam (ATIVAN) tablet, 1 mg, Oral, Q8H PRN, Mike Major Jr., PA-C, 1 mg at 07/31/232154 metoprolol (LOPRESSOR) split tablet, 12.5 mg, Oral, 2x Daily, Mohini Nguyễn, CAMERA MAKER-WEB PROGRAMMER, 12.5 mg at 08/03/23 0811 acetaminophen (TYLENOL) tablet, 650 mg, Oral, q6h, Vickie Hummel PA-C, 650 mg at 08/03/23 0811 oxyCODONE (ROXICODONE) 5 mg/5 mL oral solution, 2.5 mg, Oral, Q4H PRN, Vickie Hummel PA-C oxyCODONE immediate release tablet, 5 mg, Oral, Q4H PRN, Vickie Hummel PA-C, 5 mg at 08/01/237 senna (SENOKOT) tablet, 8.6 mg, Oral, At Bedtime, Vickie Hummel PA-C, 8.6 mg at 08/02/232110 bisacodyl (DULCOLAX) 10 MG suppository, 10 mg, Rectal, Daily PRN, Vickie Hummel PA-C Physical Examination: BP 145/72 Pulse 68 Temp 98.3 F (36.8 C) (Oral) Resp 16 Ht 5' 7 (1.702 m) Wt 183 lb 11.2 oz (83.3 kg) SpO2 98% BMI 28.77 kg/m Physical Exam Constitutional: General: She is not in acute distress. HENT: Mouth/Throat: Mouth: Mucous membranes are moist. Eyes: Conjunctiva/sclera: Conjunctivae normal. Cardiovascular: Rate and Rhythm: Normal rate and regular rhythm. Pulmonary: Effort: Pulmonary effort is normal. No respiratory distress. Abdominal: General: There is no distension. Skin: Findings: Bruising present. Neurological: General: No focal deficit present. Mental Status: She is alert and oriented to person, place, and time. Psychiatric: Attention and Perception: She is inattentive (mild). Mood and Affect: Mood normal. Behavior: Behavior is not agitated, hyperactive or combative. Kuo diagnostic studies personally reviewed: CBC (Last 5 results in the past 365 days) WBC RBC Hgb Hct MCV RDW Plt 08/03/23 0013 7.7 2.89 8.9 26.4 92 14.4 225 08/02/23 0557 8.7 3.34 9.8 30.5 91 14.3 237 08/01/23 0500 8.4 3.36 9.8 30.8 92 14.5 239 07/31/23 0500 7.7 3.40 10.4 31.1 92 14.4 238 07/30/23 0219 9.1 3.53 10.3 32.4 92 14.5 224 Basic Metabolic Panel (Last 5 results in the past 365 days) Na K Cl CO2 Gap Glu BUN Cr Ca Mg PO4 08/03/23 0013 2.2 08/03/23 0013 2.7 08/03/23 0013 136 4.3 102 27 11 100 18 0.71 8.3 08/02/23 0557 2.0 08/02/23 0557 2.3 08/02/23 0557 136 4.2 102 26 12 104 17 0.73 8.2 08/01/23 0500 2.1 08/01/23 0500 2.6 08/01/23 0500 139 4.0 104 27 12 93 15 0.68 8.7 07/31/23 0500 1.8 07/31/23 0500 2.4 07/31/23 0500 138 3.6 103 26 13 113 12 0.69 9.0 07/30/23 0219 139 4.0 104 30 9 104 18 0.71 8.8 07/30/23 0219 3.3 07/30/23 0219 1.9 LFT's (last 3 years, up to 5 values) (Last 5 results in the past 3 years) T Prot Albumin D Bili T Bili Alk Phos ALT AST 05/07/23 1113 6.3 0.4 05/06/23 0358 5.4 0.3 05/04/23 2309 6.1 0.2 05/03/23 2310 5.8 0.2 05/03/23 1323 5.8 0.4 TSH TSH 08/02/23 0557 3.023 Comment: Referance range for women as applicable: First Trimester: 0. 050 to 3.700 uIU/mL Second Trimester: 0. 310 to 4.350 uIU/mL Third Trimester: 0. 410 to 5.180 uIU/mL Vitamin B12 (pg/mL) Date Value 08/02/[address] HEAD W/O CONTRAST EXAMINATION: CT HEAD W/O CONTRAST 07/29/2023 10:12 PM CLINICAL HISTORY: Subdural hematoma ASSOCIATED DIAGNOSIS: Subdural hematoma ORDERING PROVIDER: YUNIOR SANCHEZ TECHNOLOGISTS NOTE: COMPARISON: Head CT from 07/29/2023 1629 hours TECHNIQUE: Thin axial imaging of the head was performed without intravenous contrast. FINDINGS: Expected continued evolution of left mixed density left hemispheric subdural hematoma with mild compression of the left cerebral hemisphere left lateral ventricle. Subdural blood products measure 11 mm in greatest thickness over AP ventral left frontal convexity. Rightward midline shift of 4 mm is similar to prior, accounting for interobserver measurement differences. Unchanged layering subdural hemorrhages along the tentorial leaflets. Subcortical parenchymal hemorrhages in the dorsal left superior and middle frontal gyri at the vertex are unchanged. No significant ventricular trapping. No new hemorrhage or CT evidence of acute territorial infarction. Brain volume and ventricular caliber are within normal limits. Patchy hypodensities in the periventricular white matter are nonspecific but favor sequela of moderate chronic small vessel ischemia. No acute abnormality of the paranasal sinuses and tympanomastoid cavities are clear. IMPRESSION: Sequelae of traumatic brain injury with expected continued evolution of left holohemispheric subdural hematoma, stable mass effect, and rightward midline shift. Unchanged small dorsal left frontal subcortical hemorrhages suggestive of low-grade diffuse axonal injury. MACRO: None CT HEAD W/O CONTRAST EXAMINATION: CT HEAD W/O CONTRAST 07/29/2023 04:34 PM CLINICAL HISTORY: eval SDH ASSOCIATED DIAGNOSIS: eval SDH ORDERING PROVIDER: VICKIE HUMMEL TECHNOLOGISTS NOTE: COMPARISON: None TECHNIQUE: Thin axial imaging of the head was performed without intravenous contrast. FINDINGS: Acute mixed attenuating subdural hematoma throughout the left convexity measuring up to 1.2 cm. Additional trace subdural hemorrhage along the falx and small volume hemorrhage layering along the bilateral tentorial leaflets. Small cortical or subcortical hemorrhages in the dorsal left frontal lobe measuring 6 mm or less. 3 mm of [id number] midline shift. Partial effacement of the left lateral ventricle related to mass effect from the hemorrhage. The ventricles are otherwise concordant with the expected degree of volume loss for age. Atherosclerotic disease with patchy areas of hypoattenuation throughout the white matter which are nonspecific although most likely related to moderate chronic small vessel ischemic changes. The skull, paranasal sinuses and tympanomastoid cavities are normal. IMPRESSION: 1. Acute left convexity heterogeneous subdural hematoma measuring up to 1.2 cm. 2. Trace parafalcine and small bilateral tentorial leaflet subdural hemorrhages. 3. Small cortical/subcortical hemorrhagic contusions in the dorsal left frontal lobe. 4. 3 mm of [id number] midline shift. MACRO: None I spent a total of 37 minutes spent providing patient care on 08/03/2023: Time-based billing justifications: Reviewing (chart, labs, and other clinical notes) Obtaining history (or reviewing separately obtained history) Patient visit (including performing a medically appropriate exam) Referring/communicating with other health transitional care manager - when not reported separately Charting in Epic Images from the original note were not included. GENERAL INFORMATION TRAUMA FLOOR - STAFF NOTE Patient Name: Carly Marcelino Admission Date: 07/29/2023 Patient seen and examined on 08/03/23 INTERVAL HISTORY/EVENTS Background: Carly Marcelino is a 83 year old female with a PMHx of SAH, HTN, HLD, b/L JANETTE, CAD s/p LETICIA to RCA, prior DVT, cerebral amyloid angiopathy, non-traumatic SAH, epilepsy, asthma presented as a transfer from [facility] following mechanical fall on 07/28. OSH imaging with ICH with MLS. (+) ASA. Trauma workup found L SDH with 4mm MLS, nasal septal deviation. Admitted to TICU for frequent neurochecks. Hospital Course: 07/29/2023:Admit TICU. Kunz placed for urine retention. 07/29: No acute events, stable CTH 07/30: Overnight, patient with significant agitation, pulled out her IV and arguing with nurses. Given Ativan with mild improvement. 07/31: TOV, tx to RNF. 08/01: No acute events, alert and oriented x 2 24 Hour Events: First encounter with patient. No acute events overnight. Denied from SNF due to bed availability, awaiting new choices for SW from patient and daughter. Otherwise patient alert, laying in bed. No complaints of pain, tolerating diet. Labs: No significant electrolyte abnormalities, renal function stable. No leukocytosis, hemoglobin 8.9 from 9.8. Vitals: Normotensive, HR 60s-80s. Tmax 98.1F. Sats appropriate on RA. Intake: PO: 640 mL Output: UOP: 2x occurrences recorded BM: Last BM documented 08/01 --- PHYSICAL EXAM --- Vital Signs: Vital sign ranges over the past 24 hours (retrieved 08/03/2023 at 11:38 AM): Tmax (24 hours): 98.1 F (36.7 C) Pulse Av.2 Min: 68 Max: 86 Systolic (24hrs), Av , Min:122 , Max:148 Diastolic (24hrs), Av, Min:61, Max:71 MAP (mmHg) Av.8 mmHg Min: 78 mmHg Max: 95 mmHg Resp Av.6 Min: 16 Max: 18 SpO2 Av.8 % Min: 95 % Max: 98 % --- PHYSICAL EXAM --- GENERAL: Sitting up in bed, alert. NEURO: GCS 15, no focal deficits HEENT: Improvement in ecchymosis to L face. CARDIOVASCULAR: RRR, no evidence of volume overload PULMONARY: Breathing easily on RA, no use of accessory muscles ABDOMINAL: Soft, non-tender EXTREMITIES: Moves all extremities, no obvious deformities SKIN: Warm, dry, ecchymotic LABORATORY RESULTS (LAST 24 HOURS) CBC/PT/INR WBC RBC Hgb Hct MCV RDW Plt PT aPTT INR 08/03/23 0013 7.7 2.89 8.9 26.4 92 14.4 225 Basic Metabolic Panel Na K Cl CO2 Gap Glu BUN Cr Ca Mg PO4 08/03/23 0013 2.2 08/03/23 0013 2.7 08/03/23 0013 136 4.3 102 27 11 100 18 0.71 8.3 Fingerstick Glucose (last 72 hours) None IMAGING RESULTS (PERSONALLY REVIEWED) No new imaging in last 24 hours. ASSESSMENT & PLAN - Diagnoses: S/p Fall 07/29/2023 SDH with MLS Acute pain due to trauma Agitation (improved) Hypophosphatemia PMHx: SAH, HTN, HLD, b/L JANETTE, CAD s/p LETICIA to RCA, prior DVT, cerebral amyloid angiopathy, non-traumatic SAH, epilepsy, asthma Incidental Findings: (Reviewed 08/02/23 by SARI) - None Plan: Neurologic: Acute pain d/t trauma. L SDH w/ MLS. Hx SAH, cerebral amyloid angiopathy, epilepsy. Agitation (improved). - Continue Tylenol 650mg q6h scheduled - Continue oxycodone 2.5-5mg q4h PRN moderate-severe pain - Continue lorazepam 1mg q8h PRN for anxiety - Continue melatonin 3mg at bedtime - Continue Keppra 750mg BID x 7 days for seizure ppx (through 08/04); resume home dosing 500mg XR Keppra at bedtime at discharge as we do not have ER on formulary - Stop Zoloft, as patient reports she is not taking - Hold home baclofen and gabapentin for further clarification of home med regimen - Hold home Xanax (patient with scripts for both Xanax and Ativan) - Q4h neurochecks - NSGY c/s, recs: (s/o 07/30) - Q4h neurochecks - SBP <170 - Keppra ppx (through 08/04) - Ok to start DVT ppx 07/30 - Hold home ASA until f/u with NSGY - F/u in NSGY clinic in 2 weeks with [facility] - Geriatrics c/s, recs: - Delirium precautions - Check TSH, B12 (normal) - Hold alprazolam, may continue lorazepam PRN to avoid withdrawal - Continue melatonin 3 mg at bedtime Cardiovascular: Hx of HTN, HLD, CAD s/p LETICIA to RCS, DVT. Patient has been off home AC for several months due to SAH. HDS. - Continue VS per unit protocol - Continue atorvastatin 10 mg daily for formulary substitute for home pravastatin - Continue home metoprolol 12.5mg BID hold for HR<60, SBP<90 - Stop triamterene-hydrochlorothiazide, as patient reports she has stopped taking - Continue home losartan 50 mg daily - Hold home ASA until NSGY f/u Respiratory: No acute concerns, sats appropriate on RA - Continue pulmonary toilet, encourage IS - Respiratory Wrister Protocol - Maintain O2 Sats > 92% - Continue Mucinex 1200 mg BID GI/Diet: PMHx GERD - Continue regular diet - Continue bowel regimen of senna, Miralax, PRN Dulcolax, MoM Renal/Electrolytes: Voiding spontaneously following kunz removal - No need for IVF - BMP, Mag, Phos PRN - Monitor I/O q4h - Continue home Mag-ox 400mg PO daily Heme: Stable H+H. - No indication for transfusion - CBC PRN - Continue home ferrous sulfate 325mg daily ID: - No indication for abx Endocrine: - No glycemic issues MSK: - PT/OT consulted, recs SNF - Progressive mobility procedure - WBAT - Spines cleared PPX: VTE: Continue SCDs and Lovenox 30 mg BID. Anti Xa not indicated in the setting of TBI - Stress Ulcer PPx: Not indicated. Tubes/Lines/Drains - Maintain PIVs - Monitor for urinary retention Dispo: - Medically clear for discharge to SNF, remain on RNF for dispo planning. Follow up: - NSGY clinic in 2 weeks with [facility], hold ASA until follow up - Routine Trauma follow up not indicated LIBBY Rodriguez Trauma and Acute Care Surgery ASH Pager: [phone]. This patient's plan of care was discussed with Trauma Floor attending, Dr. Nyasia Pope. Social Work Progress Note Pt was denied from [facility] and [facility] due to bed availibility. Pt and dtr will give SW new choices in the morning Pt will not need precert SW will continue to follow ILIANA Ortiz Images from the original note were not included. GENERAL INFORMATION TRAUMA FLOOR - STAFF NOTE Patient Name: Carly Marcelino Admission Date: 07/29/2023 Patient seen and examined on 08/02/23 INTERVAL HISTORY/EVENTS Background: Carly Marcelino is a 83 year old female with a PMHx of SAH, HTN, HLD, b/L JANETTE, CAD s/p LETICIA to RCA, prior DVT, cerebral amyloid angiopathy, non-traumatic SAH, epilepsy, asthma presented as a transfer from [facility] following mechanical fall on 07/28. OSH imaging with ICH with MLS. +ASA Trauma workup found LSDH with 4mm MLS, nasal septal deviation. Admitted to TICU for frequent neurochecks. Hospital Course: 07/29/2023:Admit TICU. Kunz placed for urine retention. 07/29: no acute events, stable CTH 07/30: overnight, patient with significant agitation, pulled out her IV and arguing with nurses. Given ativan with mild improvement. 08/01/23: TOV, tx to RNF. 24 Hour Events: This is my first time meeting this patient. Sitting up in chair, eating breakfast. ALOx2. Denies pain. Labs Reviewed: BMP with mild hypophosphatemia. No leukocytosis, H/H stable. Vital Signs reviewed. Afebrile, Not tachycardic, normotensive, Sats 96% Intake/Output PO:1 meal UOP: 1 occurrence Stool: 1x Last BM recorded:08/01/23 --- PHYSICAL EXAM --- Vital Signs: Vital sign ranges over the past 24 hours (retrieved 08/02/2023 at 6:55 AM): Tmax (24 hours): 99 F (37.2 C) Pulse Av.6 Min: 70 Max: 92 Systolic (24hrs), Av , Min:103 , Max:139 Diastolic (24hrs), Av, Min:53, Max:77 MAP (mmHg) Av.4 mmHg Min: 65 mmHg Max: 92 mmHg Resp Av.8 Min: 16 Max: 20 SpO2 Av.6 % Min: 94 % Max: 98 % --- PHYSICAL EXAM --- GENERAL: NAD, sitting up in chair. Sitter at bedside. NEURO: GCS 15, no focal neuro deficits. ALOx2, disoriented to time/date. HEENT: Normocephalic, ecchymosis to left face with superficial abrasions. CARDIOVASCULAR: RRR, No MRG PULMONARY: CTAB on RA ABDOMINAL: S/ND/NT EXTREMITIES: No edema, POE SKIN: WDI LABORATORY RESULTS (LAST 24 HOURS) CBC/PT/INR WBC RBC Hgb Hct MCV RDW Plt PT aPTT INR 08/02/23 0557 8.7 3.34 9.8 30.5 91 14.3 237 Basic Metabolic Panel Na K Cl CO2 Gap Glu BUN Cr Ca Mg PO4 08/02/23 0557 2.0 08/02/23 0557 2.3 08/02/23 0557 136 4.2 102 26 12 104 17 0.73 8.2 Fingerstick Glucose (last 72 hours) None IMAGING RESULTS (PERSONALLY REVIEWED) All admit imaging and follow up imaging reviewed. No new imaging ASSESSMENT & PLAN - Diagnoses: 1. S/p Fall 07/29/2023 2. SDH with MLS 3. Acute pain due to trauma 4. Agitation PMHx: SAH, HTN, HLD, b/L JANETTE, CAD s/p LETICIA to RCA, prior DVT, cerebral amyloid angiopathy, non-traumatic SAH, epilepsy, asthma Incidental Findings: Reviewed 08/02/23, SARI. None Plan: Neurologic: Acute pain d/t trauma. L SDH w/ MLS. Hx SAH, cerebral amyloid angiopathy, epilepsy. Agitation. - Continue Tylenol 650mg q6h scheduled - Continue Oxycodone 2.5-5mg q4h prn moderate-severe pain (1 dose last 48h) - Continue Lorazepam 1mg q8h PRN (no doses last 24h) - Continue Melatonin 3mg at bedtime - Continue Keppra 750mg BID x7 days for seizure ppx; resume home dosing 500mg XR Keppra at bedtime at discharge as we do not have ER on formulary - Continue home Zoloft 25mg daily - Hold home baclofen and gabapentin for further clarification of home med regimen - Hold home xanax (pt has RX's for xanax and ativan) - q4h neurochecks - NSGY c/s, recs: (s/o 07/30) - q4h neurochecks - SBP <170 - Keppra PPX - Ok to start DVT ppx 07/30 - Hold home ASA until f/u with NSGY - F/u in nsgy clinic in 2 weeks with [facility] - Geriatrics c/s, recs: - Delirium precautions - Check TSH, B12 (ordered 08/01) - Hold alprazolam, may continue lorazepam PRN to avoid withdrawal - Continue melatonin 3mg at bedtime - Discontinue scopalamine (done) Cardiovascular: Hx of HTN, HLD, CAD s/p LETICIA to RCS, DVT. Patient has been off home AC for several months due to SAH. Mild, intermittent bradycardia, SBP improved to 130s. - Continue VS per unit protocol - Continue Atorvastatin 10mg daily for formulary substitute for home pravastatin - Continue home metoprolol 12.5mg BID hold for HR<60, SBP<90 - Continue home triameterene-hydrochlorothiazide 1 tablet daily - Resume home losartan 50mg daily - Discontinue PRN hydralazine - Hold home ASA until NSGY f/u Respiratory: No acute concerns - Continue pulmonary toilet, encourage IS - Respiratory Wrister Protocol - Maintain O2 Sats > 92% - Continue Mucinex 1200mg BID GI/Diet: PMHx GERD - Continue regular diet - Continue bowel regimen of senna, miralax, prn dulcolax Renal/Electrolytes: Urinary retention on admit, kunz removed yesterday. Voided x1. - No need for IVF -BMP daily -Mg and Phos in am - Monitor I/O q4h - Continue home Mag ox 400mg PO daily Heme: HDS, Stable H/H. -VS per unit protocol - No indication for transfusion -CBC in am - Continue home ferrous sulfate 325mg daily ID: - No indication for abx Endocrine: - No glycemic issues MSK: - PT/OT consulted, recs SNF - Progressive mobility procedure - WBAT - Spines cleared PPX: VTE: Continue SCDs and Lovenox 30 mg BID. Anti Xa not indicated in the setting of TBI - Stress Ulcer PPx: Not indicated. Tubes/Lines/Drains - Maintain PIVs - Monitor for urinary retention Dispo: - Medically clear for discharge to SNF, remain on RNF for dispo planning. Follow up: - NSGY clinic in 2 weeks with [facility], hold ASA until follow up - Routine Trauma follow up not indicated Mohini Nguyễn APRN, ACNP Trauma Surgery Surgical Critical Care Pager: [phone] *For urgent issues arising after 5PM during the week or on weekends/holiday, please page the trauma resident director of curriculum and instruction at [phone]. This patient's plan of care was discussed with Trauma Floor attending, Dr. Nyasia Pope. Division of Trauma, Surgical Critical Care, [facility] Ticket to Roll Note . Trev Lunsford , who is the RUP. The patient is transferring from [facility], room # 5-207, to [address], room # 5-382. The patient was added to the Trauma Surgery list. Khushboo Gilman MD RUP = Receiving unit provider [facility] = Regular nursing floor Social Work Note Updates sent to [facility] and [facility], awaiting response on if able to accept. Updated clinicals sent via [facility]. Pt will not require pre-cert. Pt/pt's daughter with SNF list for back-up choices. [id number] required prior to pt's discharge. SW or CM will continue to follow. PATRICIA Valdez LISW Images from the original note were not included. [facility] DIVISION OF GENERAL SURGERY TRAUMA CRITICAL CARE PROGRESS NOTE Background: Carly Marcelino is a 83 year old female brought in as transfer from [facility] following a fall while walking into [employer] on 07/[facility]. She was found at the OSH to have ICH with midline shift for which she was transferred to . + ASA, prior history of AC which was d/c d/t prior SAH 07/28:Retained and was scanned for 1L. Kunz placed for urine retention fate straight cath 07/29: no acute events, stable CTH 07/30: overnight, patient with significant agitation, pulled out her IV and arguing with nurses. Given ativan with mild improvement. No other overnight events. 24 Hour Events: - overnight, no acute events, patient waiting for bed on [facility] prior to SNF placement PHYSICAL EXAM: Patient Vitals for the past 24 hrs: BP Temp Temp src Pulse Resp SpO2 08/01/23 0416 117/78 98.3 F (36.8 C) Axillary 92 20 97 % 08/01/23 0000 152/64 98.7 F (37.1 C) Axillary 90 18 99 % 07/31/23 2000 165/75 97.6 F (36.4 C) Oral 90 18 97 % 07/31/23 1700 174/90 97.5 F (36.4 C) Oral 77 20 100 % 07/31/23 1200 163/78 97.8 F (36.6 C) Oral 78 14 98 % 07/31/23 1000 167/83 -- -- 83 14 97 % 07/31/23 0800 119/77 98.3 F (36.8 C) Oral 85 17 96 % Physical Exam: VS reviewed, nursing note reviewed. General: appears in no acute distress, left scalp lac s/p lac repair Eyes: no conjunctival injection, EOM intact, conjunctival injection in left eye ENMT: Left forehead abrasion with some bleeding covered with dressing and wrapped with kerlex Respiratory: CTAB, respiratory effort wnl Cardiovascular: RRR, no m/r/g, distal pulses intact b/l Gastrointestinal: soft, nondistended, nontender Ext: no significant peripheral edema Skin: warm, dry Neuro: Awake, A&Ox2 Psych: cooperative LABS: CBC/PT/INR WBC RBC Hgb Hct MCV RDW Plt PT aPTT INR 08/01/23 0500 8.4 3.36 9.8 30.8 92 14.5 239 Basic Metabolic Panel Na K Cl CO2 Gap Glu BUN Cr Ca Mg PO4 08/01/23 0500 2.1 08/01/23 0500 2.6 08/01/23 0500 139 4.0 104 27 12 93 15 0.68 8.7 Arterial Blood Gases None IMAGING (personally reviewed by me): CTH: IMPRESSION: Sequelae of traumatic brain injury with expected continued evolution of left holohemispheric subdural hematoma, stable mass effect, and rightward midline shift. Unchanged small dorsal left frontal subcortical hemorrhages suggestive of low-grade diffuse axonal injury. ASSESSMENT: Carly Marcelino is a 83 year old female who sustained SDH after mechanical GLF. PLAN: Neurologic: Acute pain d/t trauma. L SDH- NSGY consulted - q2h NC per neurosurgery - rCTH stable 07/28 at 2200 - Keppra 750mg BID x7d (end date 08/04) - Tylenol 650mg q6h - Oxycodone 2.5/5 q4h prn moderate-severe pain - [employer] following for cog ilana, stated patient to benefit from constant supervision if she were to return home - patient with significant agitation overnight, starting melatonin 3mg nightly Cardiovascular: no current cardiac issues - hold home asa for now - continue Metop 12.5 BID, lipitor 80mg daily - HDS with no concerns with vitals Respiratory: - on RA, no acute concerns GI/Diet: - Regular/thin consistency diet per INSPECTOR CHIEF - senna, miralax, prn dulcolax Renal/Electrolytes: - No IVF at this time - daily BMP/Mg/Phos - dc kunz Heme: - No indication for transfusion - daily cbc, Hgb stable 10.4 from 10.3 ID: - afebrile, no elevated WBC - No indication for abx Endocrine: - No glycemic issues MSK: R knee contusion - PT/OT consulted, rec SNF - Progressive mobility procedure - WBAT - Spines cleared PPX: - SCDs only for now in setting of TBI; start enox 07/30 today in afternoon - No need for GI ppx Tubes/Lines/Drains - Maintain PIVs - Kunz (discontinue in AM 07/31) Final disposition: Transfer to [facility], f/u PT/OT - likely SNF Yunior Sanchez MD PGY-1 EGS/TRAUMA/ICU STAFF NOTE: I saw and evaluated the patient. I personally obtained the kuo and critical portions of the history and physical exam. I reviewed the provider's documentation and discussed the patient with the provider. I agree with the provider's medical decision making as documented in the provider's note. I personally reviewed any images obtained in the last 24 hours of evaluation. Additional findings, impression, and plan: none Kev Mederos MD Emergency General Surgery Surgical Critical Care Trauma Surgery Pager: [phone] Images from the original note were not included. GERIATRIC PROGRESS NOTE Patient Name: Carly Marcelino Location: [facility] Attending: Kev Mederos MD HPI: 83 year old female with a history of HTN, HLD, b/L JANETTE, CAD s/p LETICIA to RCA, prior DVT, cerebral amyloid angiopathy, non-traumatic SAH, epilepsy, asthma, admitted on 07/29/2023 for 11 mm L side SDH with 4 mm MLS s/p fall while leaving [employer]. NSGY recommended non acute neurosurgical intervention. Course c/b delirium. A/P: Mixed delirium - s/p fall with head trauma, 11 mm L side SDH with 4 mm MLS, urinary retention - promote sleep-wake cycle, nocturnal quiet hours 10 p to 7 am - frequent re-orientation, encourage family visitation - encourage use of glasses, hearing aids if available - daily mobilization, consider music therapy, art therapy - avoid lines and restraints, order sitter if needed - avoid anticholinergics, psychoactive meds, minimize opioids Cognitive evaluation - no memory problems at baseline, functionally very independent - CTH demonstrated moderate chronic small vessel ischemia - no prior cognitive testing - check TSH, B12 Medication management - current and outpatient medication list reviewed - agree with scheduled tylenol, low dose oxycodone (not requiring) - Keppra x 7 days per NSGY (end 08/05) - takes alprazolam 0.25 mg q12h + lorazepam 0.5 mg q8h prn at home - agree with holding alprazolam for now, may continue lorazepam prn to avoid w/d - continue melatonin 3 mg at bedtime - discontinue scopolamine due to anticholinergic properties, not requiring Debility - s/p fall with head trauma, 11 mm L side SDH with 4 mm MLS - continue PT/OT Advanced care planning, goals of care - no living will / hcpoa, NOK is daughter Hebert Alvarez [phone] - currently full code, daughter to discuss more with patient when cognition improves Discharge planning - tentative discharge plan is SNF Suresh Simental MD INTERVAL HISTORY: Agitated overnight requiring lorazepam with mild improvement CBC and BMP stable and unremarkable, Mg and Phos low - replaced Patient sitting in chair, denies pain, calm but remains delirious GERIATRIC ROS: Cognitive Status: Alert and Oriented x month, year, current president, +inattentive Mood: calm Sleep: agitated overnight Appetite: recent intake 25% Pain: denies currently Mobility: below baseline Bowel Function: Last BM: none recorded Bladder Function: Kunz Catheter in place Restraint use in last 24 hr: No Antipsychotic/opioid/benzo in last 24 hr: Yes Current Medications: Current Facility-Administered Medications: enoxaparin (LOVENOX) 30 MG/0.3ML injection 30 mg, 30 mg, Subcutaneous, 2x Daily, Yunior Sanchez MD melatonin tablet, 3 mg, Oral, At Bedtime, Abelino Barber MD levETIRAcetam (KEPPRA) tablet 750 mg, 750 mg, Oral, 2x Daily, Jermaine Chavez DO [START ON 08/01/2023] atorvastatin (LIPITOR) tablet, 10 mg, Oral, Daily, Abelino Barber MD polyethylene glycol (MIRALAX) 17 g packet, 17 g, Oral, Daily, Yunior Sanchez MD, 17 g at 07/31/23 0818 LORazepam (ATIVAN) tablet, 1 mg, Oral, Q8H PRN, Mike Major Jr., PA-C, 1 mg at 07/31/23 1322 hydrALAZINE (APRESOLINE) 20 mg/mL injection, 10 mg, Intravenous Push, Q6H PRN, Mike Major Jr., PA-C, 10 mg at 07/31/23 0033 scopolamine (TRANSDERM-SCOP) 1 MG/3DAYS patch, 1.5 mg, Transdermal, Q72H, Jenniffer Calhoun MD metoprolol (LOPRESSOR) split tablet, 12.5 mg, Oral, 2x Daily, Jenniffer Calhoun MD, 12.5 mg at 07/31/23 0818 acetaminophen (TYLENOL) tablet, 650 mg, Oral, q6h, Vickie Hummel PA-C, 650 mg at 07/31/23 1205 oxyCODONE (ROXICODONE) 5 mg/5 mL oral solution, 2.5 mg, Oral, Q4H PRN, Vickie Hummel PA-C oxyCODONE immediate release tablet, 5 mg, Oral, Q4H PRN, Vickie Hummel PA-C senna (SENOKOT) tablet, 8.6 mg, Oral, At Bedtime, Vickie Hummel PA-C bisacodyl (DULCOLAX) 10 MG suppository, 10 mg, Rectal, Daily PRN, Vickie Hummel PA-C Physical Examination: BP 163/78 (BP Location: right arm) Pulse 78 Temp 97.8 F (36.6 C) (Oral) Resp 14 Ht 5' 7 (1.702 m) Wt 183 lb 11.2 oz (83.3 kg) SpO2 98% BMI 28.77 kg/m Physical Exam Constitutional: General: She is not in acute distress. Cardiovascular: Rate and Rhythm: Normal rate and regular rhythm. Pulmonary: Effort: Pulmonary effort is normal. No respiratory distress. Abdominal: General: There is no distension. Genitourinary: Comments: Kunz in place Skin: Findings: Bruising present. Neurological: Mental Status: She is alert. She is disoriented. Comments: Oriented x month, year, current president Psychiatric: Attention and Perception: She is inattentive. Behavior: Behavior is not agitated, hyperactive or combative. Cognition and Memory: She exhibits impaired recent memory. Kuo diagnostic studies personally reviewed: CBC WBC RBC Hgb Hct MCV RDW Plt 07/31/23 0500 7.7 3.40 10.4 31.1 92 14.4 238 07/30/23 0219 9.1 3.53 10.3 32.4 92 14.5 224 07/29/23 1722 8.5 4.15 12.2 38.3 92 14.3 252 07/29/23 1339 8.9 3.93 12.0 35.7 91 14.3 214 Basic Metabolic Panel (Last 5 results in the past 365 days) Na K Cl CO2 Gap Glu BUN Cr Ca Mg PO4 07/31/23 0500 1.8 07/31/23 0500 2.4 07/31/23 0500 138 3.6 103 26 13 113 12 0.69 9.0 07/30/23 0219 139 4.0 104 30 9 104 18 0.71 8.8 07/30/23 0219 3.3 07/30/23 0219 1.9 07/29/23 1722 141 4.1 103 29 13 103 18 0.77 9.3 07/29/23 1339 138 4.1 102 28 12 94 20 0.78 9.1 05/07/23 1113 134 99 24 91 Comment: The [place] [employer] (ADA) provides guidance for cutoff values for fasting glucose and random glucose. The ADA defines fasting as no caloric intake for at least 8 hours. Fasting plasma glucose results between 100 to 125 mg/dL indicate increased risk for diabetes (prediabetes). Fasting plasma glucose results greater than or equal to 126 mg/dL meet the criteria for diagnosis of diabetes. In the absence of unequivocal hyperglycemia, results should be confirmed by repeat testing. In a patient with classic symptoms of hyperglycemia or hyperglycemic crisis, random plasma glucose results greater than or equal to 200 mg/dL meet the criteria for diagnosis of diabetes. Reference: Standards of Medical Care in Diabetes 2016, [place] [employer]. Diabetes Care. 2016.39(Suppl 1). 19 0.73 9.3 LFT's (last 3 years, up to 5 values) (Last 5 results in the past 3 years) T Prot Albumin D Bili T Bili Alk Phos ALT AST 05/07/23 1113 6.3 0.4 05/06/23 0358 5.4 0.3 05/04/23 2309 6.1 0.2 05/03/23 2310 5.8 0.2 05/03/23 1323 5.8 0.4 TSH None No results found for: B12 , VITD25 CT HEAD W/O CONTRAST EXAMINATION: CT HEAD W/O CONTRAST 07/29/2023 10:12 PM CLINICAL HISTORY: Subdural hematoma ASSOCIATED DIAGNOSIS: Subdural hematoma ORDERING PROVIDER: YUNIOR SANCHEZ TECHNOLOGISTS NOTE: COMPARISON: Head CT from 07/29/2023 1629 hours TECHNIQUE: Thin axial imaging of the head was performed without intravenous contrast. FINDINGS: Expected continued evolution of left mixed density left hemispheric subdural hematoma with mild compression of the left cerebral hemisphere left lateral ventricle. Subdural blood products measure 11 mm in greatest thickness over AP ventral left frontal convexity. Rightward midline shift of 4 mm is similar to prior, accounting for interobserver measurement differences. Unchanged layering subdural hemorrhages along the tentorial leaflets. Subcortical parenchymal hemorrhages in the dorsal left superior and middle frontal gyri at the vertex are unchanged. No significant ventricular trapping. No new hemorrhage or CT evidence of acute territorial infarction. Brain volume and ventricular caliber are within normal limits. Patchy hypodensities in the periventricular white matter are nonspecific but favor sequela of moderate chronic small vessel ischemia. No acute abnormality of the paranasal sinuses and tympanomastoid cavities are clear. IMPRESSION: Sequelae of traumatic brain injury with expected continued evolution of left holohemispheric subdural hematoma, stable mass effect, and rightward midline shift. Unchanged small dorsal left frontal subcortical hemorrhages suggestive of low-grade diffuse axonal injury. MACRO: None CT HEAD W/O CONTRAST EXAMINATION: CT HEAD W/O CONTRAST 07/29/2023 04:34 PM CLINICAL HISTORY: eval SDH ASSOCIATED DIAGNOSIS: eval SDH ORDERING PROVIDER: VICKIE HUMMEL TECHNOLOGISTS NOTE: COMPARISON: None TECHNIQUE: Thin axial imaging of the head was performed without intravenous contrast. FINDINGS: Acute mixed attenuating subdural hematoma throughout the left convexity measuring up to 1.2 cm. Additional trace subdural hemorrhage along the falx and small volume hemorrhage layering along the bilateral tentorial leaflets. Small cortical or subcortical hemorrhages in the dorsal left frontal lobe measuring 6 mm or less. 3 mm of [id number] midline shift. Partial effacement of the left lateral ventricle related to mass effect from the hemorrhage. The ventricles are otherwise concordant with the expected degree of volume loss for age. Atherosclerotic disease with patchy areas of hypoattenuation throughout the white matter which are nonspecific although most likely related to moderate chronic small vessel ischemic changes. The skull, paranasal sinuses and tympanomastoid cavities are normal. IMPRESSION: 1. Acute left convexity heterogeneous subdural hematoma measuring up to 1.2 cm. 2. Trace parafalcine and small bilateral tentorial leaflet subdural hemorrhages. 3. Small cortical/subcortical hemorrhagic contusions in the dorsal left frontal lobe. 4. 3 mm of [id number] midline shift. MACRO: None I spent a total of 36 minutes spent providing patient care on 07/31/2023: Time-based billing justifications: Reviewing (chart, labs, and other clinical notes) Obtaining history (or reviewing separately obtained history) Patient visit (including performing a medically appropriate exam) Referring/communicating with other health transitional care manager - when not reported separately Charting in [facility] Social Work Note Following pt for SNF planning. [facility], awaiting SNF acceptance. Pt will not require pre-cert. [id number] initiated. MD-please update SW when pt's medical clearance for DC to SNF is anticipated. SW or MELISSA will continue to follow for SNF planning. PATRICIA Valdez LISW Images from the original note were not included. [facility] NEUROSURGERY DAILY PROGRESS NOTE SUBJECTIVE: - No acute events overnight. OBJECTIVE: Vitals: Vital sign ranges over the past 24 hours (retrieved 07/31/2023 at 6:45 AM): Tmax (24 hours): 98.7 F (37.1 C) Pulse Av.6 Min: 67 Max: 116 Systolic (24hrs), Av , Min:116 , Max:182 Diastolic (24hrs), Av, Min:53, Max:112 MAP (mmHg) Av.7 mmHg Min: 73 mmHg Max: 123 mmHg Resp Av.2 Min: 11 Max: 27 SpO2 Av.7 % Min: 95 % Max: 98 % In: 440 (5.3 mL/kg) [P.O.:240; I.V.:200 (0.1 mL/kg/hr)] Out: 837 (10 mL/kg) [Urine:837 (0.4 mL/kg/hr)] Net: -397 Weight: 83.3 kg Medications: scopolamine 1.5 mg Q72H metoprolol 12.5 mg 2x Daily atorvastatin 80 mg Daily acetaminophen 650 mg q6h senna 8.6 mg At Bedtime levETIRAcetam orderable 750 mg Every 12 hours LORazepam 1 mg Q8H PRN hydrALAZINE 10 mg Q6H PRN oxyCODONE 2.5 mg Q4H PRN oxyCODONE 5 mg Q4H PRN bisacodyl 10 mg Daily PRN Labs: CBC/PT/INR WBC RBC Hgb Hct MCV RDW Plt PT aPTT INR 07/31/23 0500 7.7 3.40 10.4 31.1 92 14.4 238 07/30/23 0219 9.1 3.53 10.3 32.4 92 14.5 224 07/29/23 1722 29 07/29/23 1722 0.97 07/29/23 1722 8.5 4.15 12.2 38.3 92 14.3 252 07/29/23 1339 0.98 07/29/23 1339 29 07/29/23 1339 8.9 3.93 12.0 35.7 91 14.3 214 WBC/Diff Neutro% Segs% Bands% Lymphs% Monos% Eos% Basos% 07/29/23 1339 82.2 10.2 5.5 1.4 0.7 Basic Metabolic Panel Na K Cl CO2 Gap Glu BUN Cr Ca Mg PO4 07/31/23 0500 1.8 07/31/23 0500 2.4 07/31/23 0500 138 3.6 103 26 13 113 12 0.69 9.0 07/30/23 0219 139 4.0 104 30 9 104 18 0.71 8.8 07/30/23 0219 3.3 07/30/23 0219 1.9 07/29/23 1722 141 4.1 103 29 13 103 18 0.77 9.3 07/29/23 1339 138 4.1 102 28 12 94 20 0.78 9.1 Hepatic/Biliary/Pancreas None Cardiac None Arterial Blood Gases None Fingerstick Glucose None CSF Culture None Urine Culture None Pyogen Culture None Blood Culture None Sputum Culture None Physical Exam: Ox3 PERRL OS 2mm OD 2mm EOMI No slurred speech or facial droop, tongue midline RUE 5/5 no drift LUE 5/5 no drift LLE 4+/5 (pain limited) RLE 4+/5 (pain limited) Sensation intact bilat UE And LE to light touc ASSESSMENT: 83 year old with PMH of HTN, CAD (NSTEMI, stent in RCA), carotid stenosis presenting to the ED after a fall leaving [facility] with a head injury. On [address] from OSH with 11 mm L side SDH with 4 mm MLS PLAN: -trauma primary -ok for Q2 neuro checks -vital signs SBP < 170 - Keppra 750mg BID x 7 days -hold SQH thru 48 hours from stable CTH (07/30 PM) -NSGY will sign off. Please have patient follow up in nsgy clinic in 2 weeks with repeat head CT wo contrast. HOLD Aspirin until follow up. ADDENDUM: -Okay for q4 nc from NSGY perspective Jolene Snowden MD Neurological Surgery, PGY-2 Service Pager: [phone] 07/31/2023 - 6:45 AM Images from the original note were not included. [facility] DIVISION OF GENERAL SURGERY TRAUMA CRITICAL CARE PROGRESS NOTE Background: Carly Marcelino is a 83 year old female brought in as transfer from [facility] following a fall while walking into [facility] on 07/28. She was found at the OSH to have ICH with midline shift for which she was transferred to . + ASA, prior history of AC which was d/c d/t prior SAH 07/28:Retained and was scanned for 1L. Kunz placed for urine retention fate straight cath 07/29: no acute events, stable CTH 24 Hour Events: - overnight, patient with significant agitation, pulled out her IV and arguing with nurses. Given ativan with mild improvement. No other overnight events. PHYSICAL EXAM: Patient Vitals for the past 24 hrs: BP Temp Temp src Pulse Resp SpO2 07/31/23 0500 -- -- -- 92 16 97 % 07/31/23 0400 147/79 98.7 F (37.1 C) Oral 90 17 97 % 07/31/23 0300 139/72 -- -- 87 16 96 % 07/31/23 0200 116/85 -- -- 84 17 97 % 07/31/23 0100 161/99 -- -- 87 11 97 % 07/31/23 0000 -- 98.4 F (36.9 C) Oral 87 16 97 % 07/30/23 2300 168/85 -- -- 85 15 98 % 07/30/23 2200 178/80 -- -- 85 13 96 % 07/30/23 2100 -- -- -- 92 16 95 % 07/30/23 2000 144/88 98.4 F (36.9 C) Oral 89 11 98 % 07/30/23 1903 166/73 -- -- -- -- -- 07/30/23 1900 -- -- -- 99 15 97 % 07/30/23 1835 182/91 -- -- 112 19 96 % 07/30/23 1800 -- -- -- 116 23 96 % 07/30/23 1700 -- -- -- 108 22 97 % 07/30/23 1600 161/64 98.5 F (36.9 C) Oral 80 12 97 % 07/30/23 1500 161/76 -- -- 85 14 97 % 07/30/23 1400 140/60 -- -- 88 13 97 % 07/30/23 1200 140/60 98.6 F (37 C) Oral 80 17 98 % 07/30/23 1100 157/112 -- -- 103 27 97 % 07/30/23 1035 157/81 -- -- -- -- -- 07/30/23 1000 173/75 -- -- 88 22 97 % 07/30/23 0900 158/77 -- -- 83 12 95 % 07/30/23 0800 139/63 98.6 F (37 C) Oral 74 15 96 % 07/30/23 0700 121/53 -- -- 67 14 95 % Physical Exam: VS reviewed, nursing note reviewed. General: appears in no acute distress, left scalp lac s/p lac repair Eyes: no conjunctival injection, EOM intact, conjunctival injection in left eye ENMT: Left forehead abrasion with some bleeding covered with dressing and wrapped with kerlex Respiratory: CTAB, respiratory effort wnl Cardiovascular: RRR, no m/r/g, distal pulses intact b/l Gastrointestinal: soft, nondistended, nontender Ext: no significant peripheral edema Skin: warm, dry Neuro: Awake, A&Ox2 Psych: cooperative LABS: CBC/PT/INR WBC RBC Hgb Hct MCV RDW Plt PT aPTT INR 07/31/23 0500 7.7 3.40 10.4 31.1 92 14.4 238 Basic Metabolic Panel Na K Cl CO2 Gap Glu BUN Cr Ca Mg PO4 07/31/23 0500 1.8 07/31/23 0500 2.4 07/31/23 0500 138 3.6 103 26 13 113 12 0.69 9.0 Arterial Blood Gases None IMAGING (personally reviewed by me): CTH: IMPRESSION: Sequelae of traumatic brain injury with expected continued evolution of left holohemispheric subdural hematoma, stable mass effect, and rightward midline shift. Unchanged small dorsal left frontal subcortical hemorrhages suggestive of low-grade diffuse axonal injury. ASSESSMENT: Carly Marcelino is a 83 year old female who sustained SDH after mechanical GLF. PLAN: Neurologic: Acute pain d/t trauma. L SDH- NSGY consulted - q2h NC per neurosurgery - [facility] stable 07/28 at 2200 - Keppra 750mg BID x7d (end date 08/04) - Tylenol 650mg q6h - Oxycodone 2.5/5 q4h prn moderate-severe pain - INSPECTOR CHIEF following for cog eval, stated patient to benefit from constant supervision if she were to return home - patient with significant agitation overnight, starting melatonin 3mg nightly Cardiovascular: no current cardiac issues - hold home asa for now - continue Metop 12.5 BID, lipitor 80mg daily - HDS with no concerns with vitals Respiratory: - on RA, no acute concerns GI/Diet: - Regular/thin consistency diet per INSPECTOR CHIEF - senna, miralax, prn dulcolax Renal/Electrolytes: - No IVF at this time - daily BMP/Mg/Phos - kunz for urinary retention, trial dc in AM Heme: - No indication for transfusion - daily cbc, Hgb stable 10.4 from 10.3 ID: - afebrile, no elevated WBC - No indication for abx Endocrine: - No glycemic issues MSK: R knee contusion - PT/OT consulted, rec SNF - Progressive mobility procedure - WBAT - Spines cleared PPX: - SCDs only for now in setting of TBI; start enox 07/30 today in afternoon - No need for GI ppx Tubes/Lines/Drains - Maintain PIVs - Kunz (discontinue in AM 07/31) Final disposition: Transfer to [facility], f/u PT/OT Yunior Sanchez MD PGY-1 EGS/TRAUMA/ICU STAFF NOTE: I saw and evaluated the patient. I personally obtained the kuo and critical portions of the history and physical exam. I reviewed the provider's documentation and discussed the patient with the provider. I agree with the provider's medical decision making as documented in the provider's note. I personally reviewed any images obtained in the last 24 hours of evaluation. Additional findings, impression, and plan: none Kev Mederos MD Emergency General Surgery Surgical Critical Care Trauma Surgery Pager: [phone] Images from the original note were not included. [facility] DIVISION OF GENERAL SURGERY TRAUMA CRITICAL CARE HISTORY & PHYSICAL HPI: Carly Marcelino is a 83 year old female brought in as transfer from [facility] following a fall while walking into [facility] on 07/28. She was found at the OSH to have ICH with midline shift for which she was transferred to . + ASA, prior history of AC which was d/c d/t prior SAH 07/28:Retained and was scanned for 1L. Kunz placed for urine retention fate straight cath PMH: Arthritis, asthma, chronic anemia, CAD (s/p NSTEMI 2021), GERD, HTN, pulmonary hypertension, morbid obesity, seizure disorder, seasonal allergies, cerebral amyloid angiopathy, prior SAH, DVT (no longer on eliquis) PSH: PCI (2021) Eye surgery, b/L knee surgery, b/L shoulder surgery, MEDS: Albuterol prn Aspirin 81mg daily Baclofen 5mg at bedtime Pepcid 40mg daily Ferrous sulfate 325mg daily Fish oil Gabapentin 300mg TID Keppra 500mg at bedtime Losartan 50mg daily Mag oxide 12.5mg BID Montelukast 10mg daily MVI Zyrtec 10mg prn Anti-platelet use: Yes: Aspirin 81mg daily Anti-coagulant use: No ALL: Labetalol, depakote, dilantin, norvasc, procardia, tegretol, hydrochlorothiazide SH: Social History Socioeconomic History Marital status: Unknown Social Determinants of Health Financial Resource Strain: Low Risk (05/04/2023) Received from [facility] Overall Financial Resource Strain (CARDIA) Difficulty of Paying Living Expenses: Not hard at all Food Insecurity: No Food Insecurity (05/04/2023) Received from [facility] Hunger Vital Sign Worried About Running Out of Food in the Last Year: Never true Ran Out of Food in the Last Year: Never true Transportation Needs: No Transportation Needs (05/04/2023) Received from [facility] PRAPARE - Transportation Lack of Transportation (Medical): No Lack of Transportation (Non-Medical): No Review Of Systems: Skin: negative Eyes: negative review of symptoms Ears/Nose/Throat: negative Respiratory: negative symptoms (no cough, hemoptysis, SOB, LEMOS, PND, wheezing) Cardiovascular: negative symptoms (No CP/Pressure/Tightness, palpitations, orthopnea, PND, SOB, LEMOS, edema, WISDOM or vision change) Gastrointestinal: negative symptoms (no abdominal pain, anorexia, n/v, indigestion, constipation, or diarrhea) Genitourinary: no urinary symptoms Neurologic: negative symptoms (no syncope, seizures, weakness, gait problems, numbness, burning pain, tremors, or memory loss) and migraine headaches Bilateral knee pain Psychiatric: negative (no sleep disturbance, anxiety, memory loss, disorientation, inattention, feelings of depression) PHYSICAL EXAM: VITALS: Vitals: 07/30/23 1400 BP: 140/60 Pulse: 88 Resp: 13 Temp: SpO2: 97% Physical Exam HEENT:Left forehead abrasion with some bleeding covered with dressing and wrapped with kerlex CVS: RRR Lung: Bilateral breathing sounds, no wheezes or rhonchi Abdomen: soft, non tender, non distended. LABS: CBC/PT/INR WBC RBC Hgb Hct MCV RDW Plt PT aPTT INR 07/30/23 0219 9.1 3.53 10.3 32.4 92 14.5 224 07/29/23 1722 29 07/29/23 1722 0.97 07/29/23 1722 8.5 4.15 12.2 38.3 92 14.3 252 Basic Metabolic Panel Na K Cl CO2 Gap Glu BUN Cr Ca Mg PO4 07/30/23218 139 4.0 104 30 9 104 18 0.71 8.8 07/30/23 0219 3.3 07/30/23 0219 1.9 07/29/23 1722 141 4.1 103 29 13 103 18 0.77 9.3 Arterial Blood Gases None IMAGING (personally reviewed by me): Last echo: Last heart cath: ASSESSMENT: Carly Marcelino is a 83 year old female PLAN: Neurologic: Acute pain d/t trauma. L SDH- NSGY consulted - q2h NC per neurosurgery - rCTH stable - Keppra 750mg BID x7d - Tylenol 650mg q6h - Oxycodone 2.5g q4h prn moderate-severe pain - INSPECTOR CHIEF consult for cog eval Cardiovascular: no current cardiac issues - clarify patient home meds - hold home asa for now - Metop 12.5 BID Respiratory: - Continue pulmonary toilet, encourage IS GI/Diet: - Regular diet - senna, prn dulcolax Renal/Electrolytes: - No IVF at this time - BMP tomorrow - kunz for urinary retention, dc when more mobile Heme: - No indication for transfusion - daily cbc ID: - No indication for abx - update tetanus Endocrine: - No glycemic issues MSK: R knee contusion - PT/OT consulted, recs appreciated as able - Progressive mobility procedure - WBAT - Spines cleared PPX: - SCDs only for now in setting of TBI; start enox when okay with neurosurg - No need for GI ppx Tubes/Lines/Drains - Maintain PIVs Final ED disposition: Step down; transfer to [facility] pending neurosurg decreasing neuro check frequency; PT/OT eval pending EGS/TRAUMA/ICU STAFF NOTE: I saw and evaluated the patient. I personally obtained the kuo and critical portions of the history and physical exam. I reviewed the provider's documentation and discussed the patient with the provider. I agree with the provider's medical decision making as documented in the provider's note. I personally reviewed any images obtained in the last 24 hours of evaluation. Additional findings, impression, and plan: none Kev Mederos MD Emergency General Surgery Surgical Critical Care Trauma Surgery Pager: [phone] Kev Mederos MD [facility] ICU Assessment Referral: [facility] met with pt and pt's daughter Hebert Alvarez at bedside. Hx: 83 year old female brought in as transfer from [facility] following a fall while walking into [facility] this morning. She was found at the OSH to have ICH with midline shift for which she was transferred to . + ASA, prior history of AC which was d/c d/t prior SAH Living Situation: Pt at home by herself for one week, for past few months before that pt was staying with her daughter Hebert and Hebert's fiance. Pt was home alone when Hebert was working. Family/Next of Kin: Pt has one living adult child who is pt's NOK-- Hebert Widmarilyn, . Pt would like her [id number]-mi-ekr Vil[facility] [phone] as her secondary contact. Social Supports/Coping: Pt's daughter Hebert is pt's main support. Vilma will be out of town 07/30-08/05. Insurance/Finances: Medicare A/B and Commercial Insurance secondary. Advanced Directives: Pt has a Living Will on file in Care Everywhere. Social Work Needs/Indicators: Aware of PT/OT reccs for SNF. Discharge Planning: SW/CM aware that patient meets criteria for SNF. Met with patient on unit to discuss dispo. Patient open and agreeable to SNF placement. CM/SW provided pt/pt's family the quality and resource use measure data from available post-acute (PAC) providers, that best align with the patient's treatment goals and preferences from the medicare.gov compare site for SNF. [place] of Choice was provided to the patient/patient district representative. Pt/family selected [facility] as 1st SNF choice, 2nd choice is [facility]. [facility]errals [facility] via [facility]. For SNF: Awaiting SNF acceptance. Pt will not require a pre-cert. RN to complete [employer]. [id number] initiated in [facility] SW or MELISSA will continue to follow. PATRICIA Valdez LISW Images from the original note were not included. [facility] NEUROSURGERY DAILY PROGRESS NOTE SUBJECTIVE: - No acute events overnight. OBJECTIVE: Vitals: Vital sign ranges over the past 24 hours (retrieved 07/30/2023 at 6:41 AM): Tmax (24 hours): 98.3 F (36.8 C) Pulse Av.6 Min: 58 Max: 77 Systolic (24hrs), Av , Min:110 , Max:166 Diastolic (24hrs), Av, Min:46, Max:92 MAP (mmHg) Av.4 mmHg Min: 64 mmHg Max: 104 mmHg Resp Av.5 Min: 9 Max: 20 SpO2 Av.6 % Min: 93 % Max: 99 % In: 100 (1.2 mL/kg) [I.V.:100 (0.1 mL/kg/hr)] Out: 1350 (16.2 mL/kg) [Urine:1350 (0.7 mL/kg/hr)] Net: -1250 Weight: 83.3 kg Medications: acetaminophen 650 mg q6h senna 8.6 mg At Bedtime levETIRAcetam orderable 750 mg Every 12 hours oxyCODONE 2.5 mg Q4H PRN oxyCODONE 5 mg Q4H PRN bisacodyl 10 mg Daily PRN Labs: CBC/PT/INR WBC RBC Hgb Hct MCV RDW Plt PT aPTT INR 07/30/23 0219 9.1 3.53 10.3 32.4 92 14.5 224 07/29/23 1722 29 07/29/23 1722 0.97 07/29/23 1722 8.5 4.15 12.2 38.3 92 14.3 252 07/29/23 1339 0.98 07/29/23 1339 29 07/29/23 1339 8.9 3.93 12.0 35.7 91 14.3 214 WBC/Diff Neutro% Segs% Bands% Lymphs% Monos% Eos% Basos% 07/29/23 1339 82.2 10.2 5.5 1.4 0.7 Basic Metabolic Panel Na K Cl CO2 Gap Glu BUN Cr Ca Mg PO4 07/30/23 0219 139 4.0 104 30 9 104 18 0.71 8.8 07/30/23 0219 3.3 07/30/23 0219 1.9 07/29/23 1722 141 4.1 103 29 13 103 18 0.77 9.3 07/29/23 1339 138 4.1 102 28 12 94 20 0.78 9.1 Hepatic/Biliary/Pancreas None Cardiac None Arterial Blood Gases None Fingerstick Glucose None CSF Culture None Urine Culture None Pyogen Culture None Blood Culture None Sputum Culture None Physical Exam: Ox3 PERRL OS 2mm OD 2mm EOMI No slurred speech or facial droop, tongue midline RUE 5/5 no drift LUE 5/5 no drift LLE 4+/5 (pain limited) LUE 4+/5 (pain limited) Sensation intact bilat UE And LE to light touc ASSESSMENT: 83 year old with PMH of HTN, CAD (NSTEMI, stent in RCA), carotid stenosis presenting to the ED after a fall leaving [employer] with a head injury. On [address] from OSH with 11 mm L side SDH with 4 mm MLS PLAN: -trauma primary -ok for Q2 neuro checks -vital signs SBP < 170 -SCDs for DVT prophylaxis -Hold anticoagulation or antiplatelet, including home [id number] -hold SQH thru 48 hours from stable CTH (07/30 PM) -will continue to follow Jolene Snowden MD Neurological Surgery, PGY-2 Service Pager: [phone] 07/30/2023 - 6:42 AM documented in this encounter [facility] 08-03-2023 Plan of care note Problem: Routine Care: Goal: Patient care will be managed and maintained throughout hospital stay per unit specific routine care procedure 08/03/2023 140 by Ester Jiménez RN Outcome: Progressing Note: Hourly rounding performed, call cuevas within reach and bed in low locked position 08/03/2023 07 by Ester Jiménez RN Outcome: Progressing Goal: Ability to acheive therapeutic anticoagulation therapy with be maintained 08/03/2023 140 by Ester Jiménez RN Outcome: Progressing 08/03/2023712 by Ester Jiménez RN Outcome: Progressing Problem: Impaired Skin Integrity: Goal: Skin integrity will improve and/or be maintained 08/03/2023 1409 by Ester Jiménez RN Outcome: Progressing 08/03/2023712 by Ester Jiménez RN Outcome: Progressing Problem: Altered Elimination: Goal: Establishment of individualized bowel routine will be obtained 08/03/20231408 by Ester Jiménez RN Outcome: Progressing 08/03/2023712 by Ester Jiménez RN Outcome: Progressing Goal: Establishment of normal urinary function will be acheived and maintained 08/03/20231408 by Ester Jiménez RN Outcome: Progressing 08/03/2023 0713 by Ester Jiménez RN Outcome: Progressing Goal: Establishment of individualized urinary routine 08/03/2023 1409 by Ester Jiménez RN Outcome: Progressing 08/03/2023 07 by Ester Jiménez RN Outcome: Progressing Problem: Impaired Mobility: Goal: Ability to tolerate increased activity will improve and be maintained 08/03/2023 1409 by Ester Jiménez RN Outcome: Progressing 08/03/2023 07 by Ester Jiménez RN Outcome: Progressing Goal: Ability to maintain or regain baseline function will be acheived 08/03/2023 140 by Ester Jiménez RN Outcome: Progressing 08/03/2023712 by Ester Jiménez RN Outcome: Progressing Goal: Range of joint motion will improve 08/03/2023 140 by Ester Jiménez RN Outcome: Progressing 08/03/2023712 by Ester Jiménez RN Outcome: Progressing Goal: Ability to safely transfer will be achieved by discharge 08/03/2023 140 by Ester Jiménez RN Outcome: Progressing 08/03/2023712 by Ester Jiménez RN Outcome: Progressing Goal: Will be free of DVT 08/03/2023 1409 by Ester Jiménez RN Outcome: Progressing 08/03/2023712 by Ester Jiménez RN Outcome: Progressing Problem: Activity Intolerance: Goal: Will be free of DVT 08/03/2023 1409 by Ester Jiménez RN Outcome: Progressing 08/03/2023712 by Ester Jiménez RN Outcome: Progressing Problem: Fluid and Electrolyte Imbalance: Goal: Will show no signs and symptoms of excessive bleeding 08/03/2023 1409 by Ester Jiménez RN Outcome: Progressing 08/03/2023712 by Ester Jiménez RN Outcome: Progressing Problem: Altered Neurological Status: Goal: Optimal neurological status will be maintained or regained 08/03/2023 1409 by Ester Jiménez RN Outcome: Progressing 08/03/2023712 by Ester Jiménez RN Outcome: Progressing Goal: Altered Level of Consciousness will improve 08/03/2023 1409 by Ester Jiménez RN Outcome: Progressing 08/03/2023 07 by Ester Jiménez RN Outcome: Progressing Problem: Alteration in Tissue Perfusion: Cerebral: Goal: Promote adequate perfusion and limit complications for a person experiencing or at risk for inadequate cerebral perfusion 08/03/2023 1409 by Ester Jiménez RN Outcome: Progressing 08/03/2023712 by Ester Jiménez RN Outcome: Progressing Problem: Alteration in Respiratory Status: Goal: Achieve Optimal Respiratory Status with Minimal Ventilatory/Oxygen Support 08/03/2023 1409 by Ester Jiménez RN Outcome: Progressing 08/03/2023712 by Ester Jiménez RN Outcome: Progressing Problem: Acute Pain: Goal: Ability to identify pain intensity on a pain scale and rate it consistently will be achieved and maintained 08/03/2023 140 by Ester Jiménez RN Outcome: Progressing Note: Patient pain assessed on a scale from 0-10, pain interventions performed as needed 08/03/2023712 by Ester Jiménez RN Outcome: Progressing Goal: Understanding of proper administration and use of medicines will be achieved 08/03/2023 140 by Ester Jiménez RN Outcome: Progressing 08/03/2023712 by Ester Jiménez RN Outcome: Progressing Problem: Safety: Goal: Patient will remain free of falls during hospital stay 08/03/2023 1409 by Ester Jiménez RN Outcome: Progressing Note: Patient wearing yellow fall risk band, non-slip socks and call cuevas within reach. 08/03/2023 07 by Ester Jiménez RN Outcome: Progressing Goal: Free from injury during hospitalization 08/03/2023 1409 by Ester Jiménez RN Outcome: Progressing 08/03/2023712 by Ester Jiménez RN Outcome: Progressing Problem: Restraint: Goal: Remain safe while in restraints and once discontinued 08/03/2023 1409 by Ester Jiménez RN Outcome: Met Note: No restraints on patient in the last 24 hours 08/03/2023 0713 by Ester Jiménez RN Outcome: Progressing [facility] 08-03-2023 Hospital Discharge instructions Mohini Nguyễn, YO-WE[employer] PROGRAMMER - 08/03/2023 12:05 PM EDT Discharge Instructions: Date of admission: 07/29/2023 Date of discharge: 08/04/2023 [facility] are being [facility]. Follow up: - Please call to schedule your follow-up appointments - information provided separately. - You will need to follow up with: - NSGY clinic in 2 weeks with [facility], hold ASA until follow up - Routine Trauma follow up not indicated - See below for information regarding contacting your primary care physician or establishing care at [facility] if you do not already have one. Wound Care and Showering/Bathing: - Okay to shower daily - If you cannot maintain your balance in the shower, then you should not shower. Sponge baths are the best way to maintain hygiene while your are healing. - To sponge bath, wet a washcloth with soapy water and gently wash body with the washcloth. Then use a dry washcloth to wipe off. - If you begin to experience progressive and rapidly increasing pain that seems out of proportion to what you normally have been experiencing from your baseline pain after injury - you NEED TO CALL US IMMEDIATELY. Alternatively, you may come into the [facility] Emergency Department IMMEDIATELY for an emergent evaluation by the Trauma resident. Activity and Weight Bearing: - No heavy lifting or strenuous activity while you continue to heal. Pain control: - For MILD to MODERATE pain (pain 1-6 out of 10 on a pain scale) take: -- Tylenol 325 mg, 1-2 tablets every 6 hours as needed. Update your primary care physician or establish care: Please see your primary care physician at the next available appointment for follow up. Please call either on the day of your discharge, or the day after, to make the appointment. If you are followed by a managed care company or if your insurance requires,call your physician for authorization to be seen in a specialty clinic. If you do not have a primary physician please call [phone] for guidance on finding a [facility] provider. If you have questions or concerns , if your condition worsens or you develop new symptoms please call the [facility] Line at [phone]. ' The following attachments cannot be sent through Care Everywhere.Subdural Hematoma Discharge Instructions (Martiniquais)documented in this encounter [facility] 08-03-2023 Consult note Formatting of th is note is different from the original. OCCUPATIONAL THERAPY PROGRESS SUMMARY Patient seen from 1031 to 1100 on GC5E unit for 29 minute treatment. SUBJECTIVE: Patient Subjective/Goals I am doing so much better than when I first came in. OBJECTIVE: Pain: No pain reported or noted Pain Relief Interventions Implemented: None required; No pain at this time Appearance/Behavior: Supine, IV, facial bruising, pt pleasant and cooperative Cognition: Aox3, pt with improved cognitive status, able to follow commands and sequence appropriately UE Status: BUE AROM grossly WFL to complete ADLs, strength not formally assessed Self Care: Assistance Level NA Dep Max Mod Min CG CS DS MS I Set-Up Cues Comment Feeding x x Anticipated to cut food Grooming/ Hygiene x x Assist to open packages and containers, pt completed oral hygiene in a seated position Bathing: Upper Body x Simulated sponge bathing Bathing: Lower Body x Simulated sponge bathing Dressing: Upper Body x Pt donned sweater Dressing: Lower Body x Pt donned underwear with min A to pull clothing over hips Toileting x Anticipated for thoroughness of hygiene Toilet Transfers x anticipated Bed Transfer x Sit to stand from EOB to wheeled walker Pt ambulated ~20 ft using wheeled walker, slow maryann Bed Mobility x Supine to sit EOB Endurance for Self Care: Impaired Patient/Family Education: Instructed patient in roles of therapy, importance of OOB activity and occupational engagement, discharge planning, fall prevention DME: With Patients permission ordered no equipment via [employer] Order. If any questions contact [facility] DME Provider at [phone]. 08/03/2023 6 Clicks Daily Activity OT Help from another person Eating meals 3 Help from another person taking care of personal grooming 3 Help from another person bathing 3 Help from another person putting on and taking off regular upper body clothing 3 Help from another person putting on and taking off regular lower body clothing 3 Help from another person toileting 3 OT 6 Clicks Score 18 6 Click Score Guidelines: 1 - Unable = Total/Dependent Assist 2 - A lot = Max/Moderate Assist 3 - A little = Minimum/Contact Guard Assist/Supervision 4 - Non = Modified Wilson/Independent ASSESSMENT: ASSESSMENT: Recommend further therapy services in a Skilled Rehab Setting once medically cleared. Will continue to follow patient while in hospital as appropriate. Goals (to be achieved by discharge from acute care): Patient will perform grooming with Modified Independent Patient will dress upper body with Distant supervision Patient will dress lower body with Contact Guard Patient will perform bed mobility with Close supervision Patient will perform bathing with Contact Guard Patient will perform toileting with Contact Guard Patient will perform bed transfers with Close supervision Patient will perform commode transfers with Close supervision Patient will follow 3 step directions with min VCs Patient will demonstrate orientation to place, date and situation with 100% accuracy PLAN: Continue with Plan as per Initial Evaluation. Valerie Us OT NA = Not Assessed, I = Independent, MS = Modified Independent, Sup = Supervised, Set up = Physical Assistance for Set-up Only, Min = Minimal Assistance, Mod = Moderate Assistance, Max = Max assistance; Dep = Dependent; AROM = Active Range of Motion;PROM=Passive Range of Motion; MMT = Manual Muscle Test; Shld= Shoulder; Add = Adduction; Abd = Abduction [facility] 08-02-2023 Note Social Work Progress Note Pt was denied from [facility] and [facility] due to bed availibility. Pt and dtr will give SW new choices in the morning Pt will not need precert SW will continue to follow ILIANA Ortiz [facility] 08-02-2023 Plan of care note Problem: Routine Care: Goal: Patient care will be managed and maintained throughout hospital stay per unit specific routine care procedure Outcome: Progressing Goal: Ability to acheive therapeutic anticoagulation therapy with be maintained Outcome: Progressing Problem: Impaired Skin Integrity: Goal: Skin integrity will improve and/or be maintained Outcome: Progressing Problem: Altered Elimination: Goal: Establishment of individualized bowel routine will be obtained Outcome: Progressing Goal: Establishment of normal urinary function will be acheived and maintained Outcome: Progressing Goal: Establishment of individualized urinary routine Outcome: Progressing Problem: Impaired Mobility: Goal: Ability to tolerate increased activity will improve and be maintained Outcome: Progressing Goal: Ability to maintain or regain baseline function will be acheived Outcome: Progressing Goal: Range of joint motion will improve Outcome: Progressing Goal: Ability to safely transfer will be achieved by discharge Outcome: Progressing Goal: Will be free of DVT Outcome: Progressing Problem: Activity Intolerance: Goal: Will be free of DVT Outcome: Progressing Problem: Fluid and Electrolyte Imbalance: Goal: Will show no signs and symptoms of excessive bleeding Outcome: Progressing Problem: Altered Neurological Status: Goal: Optimal neurological status will be maintained or regained Outcome: Progressing Goal: Altered Level of Consciousness will improve Outcome: Progressing Bed locked and in lowest position with call light within reach. Sitter at bedside. [facility] 08-01-2023 Consult note Formatting of th is note is different from the original. PHYSICAL THERAPY PROGRESS SUMMARY Patient seen from [id number] on 5W unit for 17 minute treatment. SUBJECTIVE: Okay to treat per RN. Patient Subjective/Goals: Agreeable to therapy. I don't think I'm ready to walk yet. 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: Reclined in bed on arrival, +PIV, diffuse bruising, EKG/pulse ox/BP cuff Behavior: Alert, cooperative, pleasant Oriented x3 Pain: Site/Location: n/a; Pain Scale: 0/10 Pain Relief Interventions Implemented: None required; No pain at this time Mobility: NA Dep Max Mod Min CG CS DS MS I Comment Roll to (R) sidelying x Roll to (L) sidelying x Sidelying to sit x Supine to sit x HOB 30, +bedrail; increased time to complete Sitting balance x Upright unsupported on EOB TherEx: (B) LE AROM LAQ Sit to/from stand x From EOB to RW Standing balance x RW, flexed posture Transfers x Standing step/turn bed>chair with RW, mild instability Ambulation x Patient deferred Stair negotiation x Functional Endurance: Impaired, easily fatigues; VSS Patient/Family Education: Instructed patient in roles, goals, treatment plan: demonstrated fair-good verbal understanding. Patient remained seated in bedside chair at end of session with pressure alarm in place due to falls risk; all needs within reach. Lines/leads intact; VSS. Sitter at bedside. Patient instructed to call for staff assist when ready to return to bed and for all mobility. RN aware of patient location and mobility status. DME: TBD 08/01/2023 6 Clicks Basic Mobility PT Difficulty turning over in bed 3 Difficulty sitting down and standing up from a chair with arms 3 Difficulty moving from lying on back to sitting on the side of the bed 3 Help from another person moving to and from bed to a chair 3 Help from another person to walk in hospital room 3 Help from another person climbing 3-5 steps with a railing 1 PT 6 Clicks Score 16 6 Click Score Guidelines: 1 - Total = Requires total assistance, or cannot do at all. 2 - A lot = Requires a lot of help (maximum to moderate assistance) Can use assistive devices. 3 - A little = Requires a little help (supervision, minimal assistance) Can use assistive devices. 4 - None = Does not require any help and does the activity independently. Can use assistive devices. ASSESSMENT: Recommend further therapy services in a [facility] Setting once medically cleared. Will continue to follow patient while in hospital as appropriate. Goals (to be achieved by 10 days or by discharge from acute care): In progress, CONTINUE Patient will achieve acceptable level of pain control to allow participation in therapy. Patient will increase bed mobility to contact guard assistance Patient will perform sit to/from stand with rolling walker with contact guard assistance Patient will ambulate 50 feet with rolling walker with contact guard assistance Patient will increase ROM/Strength/Endurance/Balance to allow for above goals. Patient/Family independent with exercise program/precautions. PLAN: Will follow established Plan of Care, 1-3x/wk. Shital Hinds, PT, DPT NA = Not Assessed, I = Independent, MS = Modified Independent, Sup = Supervised, Set up = Physical Assistance for Set-up Only, Min = Minimal Assistance, Mod = Moderate Assistance, Max = Maximal assistance; Dep = Dependent; AROM = Active Range of Motion; PROM = Passive Range of Motion; MMT = Manual Muscle Test T [facility] 08-01-2023 Plan of care note Problem: Routine Care: Goal: Patient care will be managed and maintained throughout hospital stay per unit specific routine care procedure 08/01/2023 1011 by Avani Noonan RN Outcome: Progressing 08/01/2023 1008 by Avani Noonan RN Outcome: Progressing Goal: Ability to acheive therapeutic anticoagulation therapy with be maintained 08/01/2023 1011 by Avani Noonan RN Outcome: Progressing 08/01/2023 1008 by Avani Noonan RN Outcome: Progressing Problem: Impaired Skin Integrity: Goal: Skin integrity will improve and/or be maintained 08/01/2023 1011 by Avani Noonan RN Outcome: Progressing 08/01/2023 1008 by Avani Noonan RN Outcome: Progressing Problem: Altered Elimination: Goal: Establishment of individualized bowel routine will be obtained 08/01/2023 1011 by Avani Noonan RN Outcome: Not Progressing Note: Pt has not had BM since admission, medication and education provided. 08/01/2023 1008 by Avani Noonan RN Outcome: Not Progressing Note: Pt has not had bowel movement since admission, medication and education provided. Goal: Establishment of normal urinary function will be acheived and maintained 08/01/2023 1011 by Avani Noonan RN Outcome: Progressing Note: Kunz removed at 0600, pt voided per bedpan at approximately 0900 with no issues. 08/01/2023 1008 by Avani Noonan RN Outcome: Progressing Note: Pt kunz removed at 0600 today, pt voided per bedpan at approximately 0900 with no issues. Goal: Establishment of individualized urinary routine 08/01/2023 1011 by Avani Noonan RN Outcome: Progressing 08/01/2023 1008 by Avani Noonan RN Outcome: Progressing Problem: Impaired Mobility: Goal: Ability to tolerate increased activity will improve and be maintained 08/01/2023 1011 by Avani Noonan RN Outcome: Progressing 08/01/2023 1008 by Avani Noonan RN Outcome: Progressing Goal: Ability to maintain or regain baseline function will be acheived 08/01/2023 1011 by Avani Noonan RN Outcome: Progressing 08/01/2023 1008 by Avani Noonan RN Outcome: Progressing Goal: Range of joint motion will improve 08/01/2023 1011 by Avani Noonan RN Outcome: Progressing 08/01/2023 1008 by Avani Noonan RN Outcome: Progressing Goal: Ability to safely transfer will be achieved by discharge 08/01/2023 1011 by Avani Noonan RN Outcome: Progressing 08/01/2023 1008 by Avani Noonan RN Outcome: Progressing Goal: Will be free of DVT 08/01/2023 1011 by Avain Noonan RN Outcome: Progressing 08/01/2023 1008 by Avani Noonan RN Outcome: Progressing Problem: Activity Intolerance: Goal: Will be free of DVT 08/01/2023 1011 by Avani Noonan RN Outcome: Progressing 08/01/2023 1008 by Avani Noonan RN Outcome: Progressing Problem: Fluid and Electrolyte Imbalance: Goal: Will show no signs and symptoms of excessive bleeding 08/01/2023 1011 by Avani Noonan RN Outcome: Progressing 08/01/2023 1008 by Avani Noonan RN Outcome: Progressing Problem: Altered Neurological Status: Goal: Optimal neurological status will be maintained or regained 08/01/2023 101 by Avani Noonan RN Outcome: Progressing Note: Pt A&Ox3 this AM though is forgetful at times. Will continue to monitor. 08/01/2023 1008 by Avani Noonan RN Outcome: Progressing Note: Pt A&Ox3 this morning though is forgetful at times. Will continue to monitor. Goal: Altered Level of Consciousness will improve 08/01/2023 1011 by Avani Noonan RN Outcome: Progressing 08/01/2023 1008 by Avani Noonan RN Outcome: Progressing Problem: Alteration in Tissue Perfusion: Cerebral: Goal: Promote adequate perfusion and limit complications for a person experiencing or at risk for inadequate cerebral perfusion 08/01/2023 1011 by Avani Noonan RN Outcome: Progressing 08/01/2023 1008 by Avani Noonan RN Outcome: Progressing Problem: Alteration in Respiratory Status: Goal: Achieve Optimal Respiratory Status with Minimal Ventilatory/Oxygen Support 08/01/2023 1011 by Avani Noonan RN Outcome: Progressing 08/01/2023 1008 by Avani Noonan RN Outcome: Progressing Problem: Acute Pain: Goal: Ability to identify pain intensity on a pain scale and rate it consistently will be achieved and maintained 08/01/2023 1011 by vAani Noonan RN Outcome: Progressing 08/01/2023 1008 by Avani Noonan RN Outcome: Progressing Goal: Understanding of proper administration and use of medicines will be achieved 08/01/2023 1011 by Avani Noonan RN Outcome: Progressing 08/01/2023 1008 by Avani Noonan RN Outcome: Progressing Problem: Safety: Goal: Patient will remain free of falls during hospital stay 08/01/2023 1011 by Avani Noonan RN Outcome: Progressing 08/01/2023 1008 by Avani Noonan RN Outcome: Progressing Goal: Free from injury during hospitalization 08/01/2023 1011 by Avani Noonan RN Outcome: Progressing 08/01/2023 1008 by Avani Noonan RN Outcome: Progressing Problem: Restraint: Goal: Remain safe while in restraints and once discontinued Outcome: Progressing Note: Pt was ordered restraints yesterday afternoon d/t increased agitation and pulling at medical devices. Upon assessment, pt no longer in restraints and was calm and oriented. No need for restraints at this time, order discontinued. Will continue to monitor. [facility] 08-01-2023 Consult note Formatting of th is note might be different from the original. Dietitian vs DietaryTech: [employer]ary [employer] Nutrition Screening Reason for visit: LOS 5 or more days Assessment Admitting Diagnosis: TRAUMA fall, subdural bleed with shift High risk nutrition diagnosis: No - no points Past Medical History: No past medical history on file. Food Allergies: None Albumin: n/a - no points Skin Integrity: No pressure ulcers at this time - no points Fluid Accumulation: Edema-bilateral le, non-pitting Diet Order: Regular % PO Intake: Less than 50% for greater than and equal to 5 days - 4 points Intake Difficulties: Decreased appetite - 0 points 5' 7 Weight Only Weight 07/29/2023 3:50 PM 185 lb 07/29/2023 4:48 PM 183 lb 11.2 oz BMI Screening value: 21 or greater - 0 points % Weight Loss: None Weight Loss Screening Value: None Comments: Intake-appetite decreased, no food allergies. Weights-see above. May benefit from Ensure with meals. Monitor. Number of Points: 4 Nutritional Plan of Care: Less than or equal to 6 points: At this time, patient is at low nutrition risk. DTR to provide routine follow up. Will continue to follow, BHARATI Zabala (Nutrition) Pager #[phone]. [facility] 08-01-2023 Plan of care note Problem: Routine Care: Goal: Patient care will be managed and maintained throughout hospital stay per unit specific routine care procedure Outcome: Progressing Goal: Ability to acheive therapeutic anticoagulation therapy with be maintained Outcome: Progressing Problem: Impaired Skin Integrity: Goal: Skin integrity will improve and/or be maintained Outcome: Progressing- Q2 turns, incontinence care as needed Problem: Altered Elimination: Goal: Establishment of individualized bowel routine will be obtained Outcome: Progressing Goal: Establishment of normal urinary function will be acheived and maintained Outcome: Progressing Goal: Establishment of individualized urinary routine Outcome: Progressing Problem: Impaired Mobility: Goal: Ability to tolerate increased activity will improve and be maintained Outcome: Progressing Goal: Ability to maintain or regain baseline function will be acheived Outcome: Progressing Goal: Range of joint motion will improve Outcome: Progressing Goal: Ability to safely transfer will be achieved by discharge Outcome: Progressing Goal: Will be free of DVT Outcome: Progressing- Problem: Activity Intolerance: Goal: Will be free of DVT Outcome: Progressing Problem: Fluid and Electrolyte Imbalance: Goal: Will show no signs and symptoms of excessive bleeding Outcome: Progressing Problem: Altered Neurological Status: Goal: Optimal neurological status will be maintained or regained Outcome: Progressing Goal: Altered Level of Consciousness will improve Outcome: Progressing- Q4 neuro checks, reorient patient as needed Problem: Alteration in Tissue Perfusion: Cerebral: Goal: Promote adequate perfusion and limit complications for a person experiencing or at risk for inadequate cerebral perfusion Outcome: Progressing Problem: Alteration in Respiratory Status: Goal: Achieve Optimal Respiratory Status with Minimal Ventilatory/Oxygen Support Outcome: Progressing Problem: Acute Pain: Goal: Ability to identify pain intensity on a pain scale and rate it consistently will be achieved and maintained Outcome: Progressing Goal: Understanding of proper administration and use of medicines will be achieved Outcome: Progressing- Scheduled and PRN pain meds, pain assessments, rest, reposition Problem: Safety: Goal: Patient will remain free of falls during hospital stay Outcome: Progressing Goal: Free from injury during hospitalization Outcome: Progressing [facility] 07-31-2023 Plan of care note Problem: Routine Care: Goal: Patient care will be managed and maintained throughout hospital stay per unit specific routine care procedure Outcome: Progressing Goal: Ability to acheive therapeutic anticoagulation therapy with be maintained Outcome: Progressing Problem: Impaired Skin Integrity: Goal: Skin integrity will improve and/or be maintained Outcome: Progressing Problem: Altered Elimination: Goal: Establishment of individualized bowel routine will be obtained Outcome: Progressing Goal: Establishment of normal urinary function will be acheived and maintained Outcome: Progressing Goal: Establishment of individualized urinary routine Outcome: Progressing Problem: Impaired Mobility: Goal: Ability to tolerate increased activity will improve and be maintained Outcome: Progressing Note: Prog mobility Goal: Ability to maintain or regain baseline function will be acheived Outcome: Progressing Goal: Range of joint motion will improve Outcome: Progressing Goal: Ability to safely transfer will be achieved by discharge Outcome: Progressing Goal: Will be free of DVT Outcome: Progressing Problem: Activity Intolerance: Goal: Will be free of DVT Outcome: Progressing Problem: Fluid and Electrolyte Imbalance: Goal: Will show no signs and symptoms of excessive bleeding Outcome: Progressing Note: Daily labs with replacements PRN Problem: Altered Neurological Status: Goal: Optimal neurological status will be maintained or regained Outcome: Progressing Note: Q 2 neuro checks Goal: Altered Level of Consciousness will improve Outcome: Progressing Problem: Alteration in Tissue Perfusion: Cerebral: Goal: Promote adequate perfusion and limit complications for a person experiencing or at risk for inadequate cerebral perfusion Outcome: Progressing Problem: Alteration in Respiratory Status: Goal: Achieve Optimal Respiratory Status with Minimal Ventilatory/Oxygen Support Outcome: Progressing Problem: Acute Pain: Goal: Ability to identify pain intensity on a pain scale and rate it consistently will be achieved and maintained Outcome: Progressing Goal: Understanding of proper administration and use of medicines will be achieved Outcome: Progressing Problem: Safety: Goal: Patient will remain free of falls during hospital stay Outcome: Progressing Goal: Free from injury during hospitalization Outcome: Progressing [facility] 07-30-2023 Progress note Formatting of t his note might be different from the original. Social Work/Case Management: Reason for placement: PT/OT Therapies Patient level of care required : Skilled Applicant's potential for returning to community: Return home Convalescent stay:<30 days Prognosis: Good Rehab Potential: Improve Mental/Behavioral status:Alert, Oriented, Cooperative Affect: Calm Social Work Assessment Functional status prior to admission: Independent for ADLs, ambulates with rollator, drives self Community agencies active with patient: n/a Support system: [facility] [place], . Capacity for independent living/half-way plan: live with daughter Other hospital admissions within the past 60 days: No Other pertinent problems: PATRICIA Valdez LISW T [facility] 07-30-2023 Consult note Associated Order (s): IP OCCUPATIONAL THERAPY SERVICE REQUEST OCCUPATIONAL THERAPY INITIAL EVALUATION Patient seen from 0930 to 0950 on GC5W unit for 20 minutes. Reason for Admit: 83 yo transfer from [facility] s/p fall leaving [employer]. Diagnosis: Left frontal/parietal/temporal SDH and 4 mm midline shift L sided facial abrasion L hand laceration bruising contusion to bilateral knees Precautions/Activity Order: High falls, full code, progressive mobility Procedures this admit: None Past Medical and Surgical History: PAST MEDICAL HISTORY: Arthritis, asthma, chronic anemia, CAD (s/p NSTEMI 2021), GERD, HTN, pulmonary hypertension, morbid obesity, seizure disorder, seasonal allergies, cerebral amyloid angiopathy, prior SAH, DVT (no longer on eliquis) PAST SURGICAL HISTORY: PCI (2021) Eye surgery, b/L knee surgery, b/L shoulder surgery, SUBJECTIVE: Patient Subjective: Are you sure I am at [facility]? Patient Identified Goal(s):none stated Home Living Situation- Pt is a poor historian- unclear of accuracy Prior Functional Status: Pt reports that she ambulates with a wheeled walker and is independent with ADLs Assistance Available at Home: Daughter involved but unclear if pt lives with daughter Patient lives in a ? story home 0 stairs to enter. Full Bathroom on 1 level, Bedroom on 1 level. Equipment available at home: wheeled walker Per geriatrics note:Before this admission Patient was living with her DTR and MILE and just moved to her own home like a week ago to try to live independently, by herself. Dtr states no concerns of Memory impairment. Able to do her medications, telephone use and ambulation with walker. As per DTR she is very sharp and wanted to try to live by herself more independently. OBJECTIVE: Patient Identification: patient's id band and date of . Risks and benefits of occupational therapy: Patient informed of risks and benefits of treatment Appearance: supine, IV, EKG, pulse ox, BP cuff, external cath, L forehead lac Alertness: Awake Affect: anxious Cooperation/Behavior: confused but cooperative Communication: perseverative Pain: Pain rating: no pain reported Pain Relief Interventions Implemented: None required; No pain at this time Self Care: Assistance Level Dep Max Mod Min CG CS DS MS I Set-Up Comment Feeding x x Grooming/Hygiene x x Bathing:UB x Simulated sponge bathing Bathing:LB x Simulated sponge bathing Dressing:UB x Anticipated to don shirt Dressing: LB x Anticipated to don pants Toileting x Anticipated Transfers/Bed Mobility: Assistance Level Dep Max Mod Min CG CS DS MS I Set-Up Comment Toilet Transfers x2 anticipated Bed Transfers x2 Sit to stand from EOB to wheeled walker- min Ax2 Pt ambulated ~8ft using wheeled walker with min A cues for walker management and safety Bed Mobility x Supine to sit EOB Endurance for Self Care: Impaired Static Sitting Balance: WFL Dynamic Sitting Balance: WFL UE Motor: BUE AROM grossly WFL, strength not formally assessed Vision/Perception: not formally assessed appears WFL Cognition: Orientation: Oriented to self, not oriented to place, date or situation Follows Commands: one step commands Attention: perseverative Memory: Impaired, difficulty recalling info provided in session Problem Solving: Impaired Safety/Judgement: Impaired Sequencing: Impaired Patient/Family Education: Instructed patient in roles of therapy, importance of OOB activity and occupational engagement, discharge planning, fall prevention Patient up in chair with call light in reach. Chair alarm intact. DME: With Patients permission ordered no equipment via [employer] Order. [facility] at [phone]. 07/30/2023 6 Clicks Daily Activity OT Help from another person Eating meals 3 Help from another person taking care of personal grooming 3 Help from another person bathing 2 Help from another person putting on and taking off regular upper body clothing 3 Help from another person putting on and taking off regular lower body clothing 2 Help from another person toileting 2 OT 6 Clicks Score 15 6 Click Score Guidelines: 1 - Unable = Total/Dependent Assist 2 - A lot = Max/Moderate Assist 3 - A little = Minimum/Contact Guard Assist/Supervision 4 - Non = Modified [place]/Independent ASSESSMENT: Recommend further therapy services in a Skilled Rehab Setting once medically cleared. Will continue to follow patient while in hospital as appropriate. Rehabilitation Potential: Good Problem List: decreased ADLs, decreased endurance, decreased functional transfers/mobility, impaired balance, decreased cognition, decreased home management tasks/IADLs, and decreased functional activity tolerance Goals (to be achieved by discharge from acute care): Patient will perform grooming with Modified Independent Patient will dress upper body with Distant supervision Patient will dress lower body with Contact Guard Patient will perform bed mobility with Close supervision Patient will perform bathing with Contact Guard Patient will perform toileting with Contact Guard Patient will perform bed transfers with Close supervision Patient will perform commode transfers with Close supervision Patient will follow 3 step directions with min VCs Patient will demonstrate orientation to place, date and situation with 100% accuracy PLAN: Carly Marcelino will be seen 1-3 times a week. Treatment to include: Functional AROM/Strengthening, functional mobility training, ADL retraining, functional endurance activities, cognitive retraining, home program instruction, home management retraining, functional task simulation, adaptive equipment / compensatory strategy training, patient / family education and discharge planning, referral to appropriate support services, and pain Management able to discuss the evaluation findings and treatment plan with the patient/family. The patient/family did participate in the development of plan and goals. Valerie Us OT NA = Not Assessed, I = Independent, MS = Modified Independent, Sup = Supervised, Set up = Physical Assistance for Set-up Only, Min = Minimal Assistance, Mod = Moderate Assistance, Max = Max assistance; Dep = Dependent; AROM = Active Range of Motion;PROM=Passive Range of Motion; MMT = Manual Muscle Test; UB = Upper Body; LB = Lower Body [facility] 07-30-2023 Consult note Formatting of th is note is different from the original. SPEECH-LANGUAGE PATHOLOGY ACUTE EVAL [id number]/1 Referral received, chart reviewed and history is noted. Time In: 1130 Time Out: 1154 Session Duration: 19 minutes Patient identified by patient/armband stating name and date of . Date of Admit: 07/29/23 Reason for Consult: cog eval History/Diagnosis: 83 year old year old female with a history of HTN/HLD, CAD(Nstemi s/p PCI RCA, Carotid stenosis, chronic anemia, GERD, Pulmonary Htn, seizure disorder, cerebral amyloid angiopathy, prior SAH and recent DVT presenting to ED on 07/29/2023 for fall. Injuries: Left subdural hematoma with 4mm midline shift L sided facial abrasion L hand laceration Bruising contusion to bilateral knees Precautions: Delirium, Fall; Full code. Imaging: [facility] 07/29/23 Sequelae of traumatic brain injury with expected continued evolution of left holohemispheric subdural hematoma, stable mass effect, and rightward midline shift. Unchanged small dorsal left frontal subcortical hemorrhages suggestive of low-grade diffuse axonal injury. [facility] 07/29/23 1. Acute left convexity heterogeneous subdural hematoma measuring up to 1.2 cm. 2. Trace parafalcine and small bilateral tentorial leaflet subdural hemorrhages. 3. Small cortical/subcortical hemorrhagic contusions in the dorsal left frontal lobe. 4. 3 mm of [id number] midline shift. Prior Level of Functioning: Will need to verify information with family- Patient reports she lives with her daughter and son-in-law and is independent with all ADLs and IADL. Family reportedly assists as needed with tasks. SUBJECTIVE: Patient subjective/goals: The patient was seated upright in chair. Now was bandage around forehead as nurse reports patient pulled out sutures recently. I'm just waiting for my daughter . Pain: Scale (if yes): 0/10 Location: N/A OBJECTIVE: LANGUAGE/COGNITIVE TREATMENT - Patient presenting with paranoid behaviors verbalizing, I don't know if I can trust you. I thought you were here to finish me off . Patient apprehensive to accept PO from INSPECTOR CHIEF. Patient also demo paranoid behaviors re: other staff presence and monitors. - INSPECTOR CHIEF able to increase patient comfort slowly over time of session through verbal discussion. Patient was not receptive to [employer]PECT[employer]IE[employer] review of prior session held earlier this date, factual information and/or verbal reasoning presented. - Expressive language was intact throughout spontaneous output this session - Patient followed basic instruction and direct commands throughout this session - Patient able to to ID that she has dentures, specifics regarding and presence. INSPECTOR CHIEF cleansed and provided to patient. Patient participated in choice making throughout session including whether to I'ly complete don of dentures and self feeding vs accepting assistance. - Patient with poor orientation to place and situation; INSPECTOR CHIEF provided review with specific details. Patient then reporting hospital to be despite ongoing review of current place/facility. Later reports typically receives care at [facility]. CLINICAL BEDSIDE SWALLOW EVALUATION Current Diet NPO Dentition Full upper denture Dental Repair Partial lower denture Oral Hygiene WFL Oxygen Requirement Room air SpO2 97% Temperature 98.6 (@0800) Chest Imaging No current imaging of the aerodigestive tract. WBC WNL Clinical Assessment: Oral Motor Exam: Lingual ROM: Protrusion: + Elevation/depression: + Lateralization: + Lingual Strength:+ Labial ROM: Protrusion: + Retraction: + Velum: Absent uvula; Diminished velar elevation b/l Patient and INSPECTOR CHIEF administered all consistencies presented during this assessment. [place] Swallow Protocol: Patient decline participation Clinical Assessment Consistencies presented Puree: Applesauce via tsp x~2oz Soft/Regular Solid: 1 Larissa Doone cookie Thin Liquid: Water via straw x~3oz Oral Phase - Adequate oral acceptance - Slow bolus breakdown with pocketing within the R buccal cavity - Inattentive to task of eating with talking and other activity with bolus still unmasticated in R cheek. - Eventual full bolus breakdown - Functional oral transit; slight oral holding of liquids prior to initiation of transit - Full oral clearance achieved eventually - Liquid wash is beneficial Pharyngeal Phase - Successive swallows were elicited - No overt s/s of airway compromise exhibited - Occasional audible swallow - Vocal quality remained unchanged. RISK ASSESSMENT Dysphagia Risk Factors: Predisposing: GERD Seizure disorder SAH Clinical signs of possible chronic dysphagia: None Precipitating: L SDH with 4mm MLS Factors contributing to aspiration related pulmonary complications: Given diminished pulmonary clearance, preserved immune response, and preserved bacteriological contents patient risk for aspiration related pulmonary complication is currently perceived to be low. Positive Impact Negative impact Pulmonary Clearance Medical Conditions (COPD, CHF, asthma) X Reduced function (reduced mobility/increased dependence for care) X Pulmonary health (h/o smoking, need for supplemental O2, need for inhaled medications) X Immune Response Nutritional Status X Medical co-morbidities X Presence of current infectious process X Bacteriological Contents Dependencies for oral care X Dental care/repair X Oral hygiene X Xerostomia X Diabetes X Acid Suppression therapy (PPI, H2 Blockers) X Education: The patient was educated on the results and recommendations of this evaluation. The patient would benefit from further education and caregiver involvement to achieve understanding of educated material. ASSESSMENT: Impression: Bedside swallow evaluation conducted with through feeding observations only given patient declined participation in [place] Swallow Protocol. Patient consumed varying solid consistencies and thin liquids without overt s/s of airway invasion this session. Provided regular texture solids, patient exhibited slow incomplete mastication cycle with pocketing of partially masticated bolus in R buccal cavity. Patient was inattention to task of eating with talking and other activities completed prior to finishing bolus breakdown and clearance of oral cavity. Patient appears appropriate to initiate a PO diet including regular texture solids and thin liquids with set up assistance and intermittent supervision as well as oral checks at end of all PO intake to ensure full oral clearance.If patient persistently exhibits pocketing of solids or difficulty/incomplete breakdown, then a diet downgrade may be necessary. PLAN: Treatment Modalities: Cognition, dysphagia Frequency: 1-3x/week Goals: Short Term Goals (to be achieved by discharge from hospital): Short Term Goals (to be achieved by discharge from hospital): The patient will recall orientation information and daily events with 80% accuracy given min-no cues to improve STM and to learn to implement use of memory aids. The patient will recall 3 units of functional information immediately and with a 5-10 minute delay with use of strategies and min cues in 3/5 trials to improve encoding and retrieval of new information. The patient will demonstrate sustained attention to task/topic for 5-10 minutes with less than 3 redirections to increase concentration and participation in ADL's. The patient will complete basic level problem solving/reasoning tasks with 80% accuracy given min cues to increase safety and judgement in current environment The patient will complete basic-moderate level organization tasks (sequencing, convergent/divergent reasoning tasks) with 80% accuracy to improve mental organization for basic conversation and sequencing of daily tasks Language The patient will complete moderate level comprehension tasks (i.e., following directives, picture/object ID, YES/NO questions, WH questions, open ended questions) with 80% accuracy given min cues to improve comprehension of information in current environment. The patient will complete moderate+ level expression tasks (i.e., repetition, automatics, confrontational naming, phrase/sentence completion, picture description, spontaneous production) with 90%< accuracy in order to improve effectiveness and efficiency with verbal communication. Swallow The patient will consume regular/thin consistency diet with complete bolus breakdown and clearance and without clinical indication of airway invasion or decline in cardiopulmonary status across 3-5< days. The patient/caregiver/family will demonstrate adequate return of knowledge of all compensatory strategy/instruction to effectively assist the patient in immediate safety with oral intake and swallowing. Prognosis: (+) Cooperation (-) PMH (+) New onset of acute issues (-) Age (-) Cognitive impairments Recommendations: - Instrumental assessment not warranted - Initiate regular/thin consistency diet - Set up assistance and intermittent supervision - Oral checks at end of all PO intake to ensure full oral clearance. - If patient persistently exhibits pocketing of solids or difficulty/incomplete breakdown, then a diet downgrade may be necessary. - Administer medications whole with thin liquid wash; 1 tablet per swallow; Oral cavity check post medications (nguyễn R cheek) small bites, small sips, slow rate, alternate solids/liquids, OOB to chair at 90 degree angle when able; otherwise, upright at 60< degree angle for all PO intake - Rigorous oral care Q3-4 with suction toothbrush kit in order to promote moistening of mucosa and reduce risk for colonization of oropharyngeal bacteria - Anticipate INSPECTOR CHIEF services needed in discharge setting; consider PMR consult - If patient were to return home at this time, would benefit from Constant Supervision- Person may not be left alone. Requires a caregiver to watch 24 hours a day. Patient would benefit from assistance with ADLs and IADLs Toshia Sue CCC-INSPECTOR CHIE[employer], MS-CCC/INS[employer]OR [employer] Speech and Language Pathologist Secure chat preferred ([phone] M,T,TH, F) Pager [phone] [facility] 07-30-2023 Consult note Associated Order (s): IP INSPECTOR CHIEF SERVICE REQUEST SPEECH-LANGUAGE PATHOLOGY ACUTE EVAL AC Time In: 951 Time Out: 102 Session Duration: 37 minutes Referral received, chart reviewed and history is noted. Patient identified by patient/armband stating name and date of . Date of Admit: 07/29/23 Reason for Consult: cog eval History/Diagnosis: 83 year old year old female with a history of HTN/HLD, CAD(Nstemi s/p PCI RCA, Carotid stenosis, chronic anemia, GERD, Pulmonary Htn, seizure disorder, cerebral amyloid angiopathy, prior SAH and recent DVT presenting to ED on 07/29/2023 for fall. Injuries: Left subdural hematoma with 4mm midline shift L sided facial abrasion L hand laceration Bruising contusion to bilateral knees No past medical history on file. No past surgical history on file. Precautions: Delirium, Fall; Full code. Imaging: CT 07/29/23 Sequelae of traumatic brain injury with expected continued evolution of left holohemispheric subdural hematoma, stable mass effect, and rightward midline shift. Unchanged small dorsal left frontal subcortical hemorrhages suggestive of low-grade diffuse axonal injury. CT 07/29/23 1. Acute left convexity heterogeneous subdural hematoma measuring up to 1.2 cm. 2. Trace parafalcine and small bilateral tentorial leaflet subdural hemorrhages. 3. Small cortical/subcortical hemorrhagic contusions in the dorsal left frontal lobe. 4. 3 mm of [id number] midline shift. Prior Level of Functioning: Will need to verify information with family- Patient reports she lives with her daughter and son-in-law and is independent with all ADLs and IADL. Family reportedly assists as needed with tasks. SUBJECTIVE: Patient subjective/goals: Patient was alert and pleasantly cooperative throughout session. Maintained upright postioning in chair throughout session. Pain: Scale (if yes): 0/10 Location: Notes shoulder discomfort OBJECTIVE: Hearing: Hearing appears adequate at conversational level intensities. Patient reports adequate hearing of INSPECTOR CHIEF. Vision: Patient reports she has poor vision although demo ability to participate in basic visual tasks this date which are present in large, bold print. Language: Auditory Comprehension: -1 step commands: 5/5 -2 step commands: 0/5 -[place]/biographical y/n questions: 4/5 -Abstract y/n questions: 3/7 however, patient perseveratively responded no to all questions therefore, accurate responses considered unreliable. -Conversation level: Reduced comprehension exhibited with perseveration of prior topics and/or no response, and/or unrelated response provided. Reading Comprehension: -Reading comprehension is intact at the digit, word, and phrase level. Breakdowns occur at the simple sentence level. -Oral Reading skills are intact for digits, words, and phrases. Breakdown occurs at simple sentence level. Verbal Expression: Language production is variable in direct tasks and may be impacted by deficits in attention and organization. Spontaneous productions are perseverative in nature, but free of paraphasias and/or anomia. -Biographical information: WFL -Automatics: Intact for digits 1-20 -Confrontation naming: Objects: 3/3; Line drawings: 5/8; +2 with phonemic cue (patient I'ly demo circumlocution x1 Oh, my mother used to play that. It was wonderful. ---Violin) -Repetition: Intact -[place] phrase completion: Intact -Open ended phrase completion: Intact -Responsive naming: Intact -Response to open ended questions: Intact; perseverative, but with clarifications or repetitions of question, appropriate responses achieved. -Picture description: Able to identify and express 1-salient event/situation; provided cuing and carrier questions, patient able to express additional details regarding picture with incomplete thought expression and anomia x2 -Spontaneous productions: Written Expression: -Functional writing skills (name, address) are impaired. Perseverative productions of letters and digits. Does demo ability to write first name with cuing/prompting to restart. Frequent writing directly on top of other written items. Demo intermittent awareness of errors No, that doesn't look right . Appears to attempt intermittent self correction with poor effectiveness. Cognition: Brief Cognitive Status Exam Subtest Weighted Raw Score Orientation 0/8 Time Estimation 0/4 Confrontation Naming 4/ (Not calculated) Mental Control 0/12 Clock Drawing 0/4 Incidental Recall 2 Inhibition Not administered d/t vision Verbal Production Not administered secondary to patient unable to redirect to task Total Raw Score (Maximum=58) Unable to calculate given incomplete subtests Classification Level by Age and Education Unable to to calculate, but suspected to fall within the very low classification given severity of impairments of all other subtests WMS-IV Older Adult Record Form Orientation: PERSON: (+) name PLACE: (- I was in the hospital because I wasn't feeling well last night, following discussion regarding situations) facility type; (-) hospital name; (-) city TIME: (-) [place]; (-) DOM; (-) TAYL[place]; (-) YR; (-) TOD SITUATION: (-) Brief Cognitive Status Exam: Will complete in future session Memory: -Delayed Recall: 03/15 after 5-10 minute delay -Working Memory: IMP at the basic level Attention: -Selective:IMP -Sustained: IMP -Alternating: IMP -Initiation: Delayed; appears related to attention impairments and possible delayed auditory processing -Impulse control: Verbal and physical impulsive behaviors exhibited; suspect this may be exacerbated during dynamic tasks Problem Solving/Reasoning: -Diminished for basic level hospital related scenarios. Once prompted able to demo ability to locate call button on bed and activate; repeatedly activates call button without Id'd needs. -IMP mental flexibility for generating multiple alternatives -Reasoning skills are impaired at the basic level Organization: -IMP for expression of thoughts/ideas at the basic level Further assessment indicated as able. - Safety/Judgement: IMP; demo basic level understanding of dangerous situations (e.g. Cookie Theft picture), but does not demo full awareness and implementation of safety precautions, judgement regarding functional situations. - Insight: IMP; limited awareness of injuries, need for assist and ability to perceive current situation Intermittent awareness of errors made during this assessment; attempts to self correct with poor effectiveness - Pragmatic Behavior: Pleasant, cooperative, confused *After leaving room, patient calling out for Nurrrse. Nurse. Nursing staff addressed. Speech Intelligibility: WFL at spontaneous level of production Voice: Respiration: WFL coordination of respiration and phonation Phonation: WFL quality and adequate intensity Swallowing Current Diet NPO Dentition Some natural Full upper and partial lower denture Dental Repair Missing some Denture in good repair Oral Hygiene WFL Secretion Mngt Adequate Oxygen Requirement Room air SpO2 97% Temperature 98.6 (@0800) Chest Imaging No current imaging of the aerodigestive tract. WBC WNL Clinical Assessment: Held pending physician approval to accept PO. Education: The patient was educated on the results and recommendations of this evaluation. The patient demo understanding of educated material. ASSESSMENT: Impression: Assessment of cognitive function was conducted with administration of Brief Cognitive Status Exam with a total score of unable to be calculated given incomplete subtests. The patient however, demo severe cognitive impairments with a suspected overlay of language deficits. Areas of deficit include basic orientation (place, time, situation), attention, organization, executive function, and insight. Language is characterized by perseverative expression of thoughts/ideas/topics with intermittent language errors during confrontation naming and picture description tasks. Patient is stimulable for use of cuing strategies. Written language is impaired at the basic level (name and single word) with question of visuospatial component. Patient intermittently aware of general errors with intermittent attempts to self correct which are perseverative and ineffective. Perseveration continues throughout all motor tasks. Receptive language is intact at basic level with breakdowns at moderate level information and 2-step simple command level. Reading comprehension is impaired at the simple sentence + level. The deficits identified during this assessment negatively impact the patient's ability to safely and efficiently complete ADL and IADL tasks within the current, home and community environments without direct assistance. Bedside swallow evaluation was held pending clearance from medical team for PO intake. PLAN: Treatment Modalities: Cognition Frequency: 1-3/wk Goals: Short Term Goals (to be achieved by discharge from hospital): The patient will recall orientation information and daily events with 80% accuracy given min-no cues to improve STM and to learn to implement use of memory aids. The patient will recall 3 units of functional information immediately and with a 5-10 minute delay with use of strategies and min cues in 3/5 trials to improve encoding and retrieval of new information. The patient will demonstrate sustained attention to task/topic for 5-10 minutes with less than 3 redirections to increase concentration and participation in ADL's. The patient will complete basic level problem solving/reasoning tasks with 80% accuracy given min cues to increase safety and judgement in current environment The patient will complete basic-moderate level organization tasks (sequencing, convergent/divergent reasoning tasks) with 80% accuracy to improve mental organization for basic conversation and sequencing of daily tasks Language The patient will complete moderate level comprehension tasks (i.e., following directives, picture/object ID, YES/NO questions, WH questions, open ended questions) with 80% accuracy given min cues to improve comprehension of information in current environment. The patient will complete moderate+ level expression tasks (i.e., repetition, automatics, confrontational naming, phrase/sentence completion, picture description, spontaneous production) with 90%< accuracy in order to improve effectiveness and efficiency with verbal communication. Prognosis: (+) Cooperation (-) PMH (+) New onset of acute issues (-) Age (-) Cognitive impairments Recommendations: - INSPECTOR CHIEF to complete bedside swallow evaluation pending approval for PO intake - HOB elevated to 30< degree angle at all times - Rigorous oral care Q3-4 with suction toothbrush kit in order to promote moistening of mucosa and reduce risk for colonization of oropharyngeal bacteria - Anticipate INSPECTOR CHIEF services needed in discharge setting; consider PMR consult - If patient were to return home at this time, would benefit from Constant Supervision- Person may not be left alone. Requires a caregiver to watch 24 hours a day. Patient would benefit from assistance with ADLs and IADLs Toshia Sue CCC-INSPECTOR CHIEF, MS-CCC/INSPECTOR CHIEF Speech and Language Pathologist Secure chat preferred ([phone] M,T,TH, F) Pager [phone] T [facility] 07-30-2023 Consult note Associated Order (s): IP GERIATRIC CONSULT Images from the original note were not included. GERIATRIC CONSULTATION Patient Name: Carly Marcelino Location: [facility] PCP: No primary care provider on file. Geriatric Medicine team has been consulted by Kev Mederos MD to provide recommendations for the following problem(s): Falls evaluation Pain evaluation Multiple medications effecting the older adult Our opinion has been requested to help clarify the presenting problem(s) and provide disease management recommendations and recommendations for an appropriate plan of care. The following note reflects my opinion and services performed, as well as recommendations pertaining to treatments, medications and post-acute care History was obtained by: discussion with nursing staff and review of chart review of hospital chart review of transfer information HPI: 83 year old year old female with a history of HTN/HLD, CAD(Nstemi s/p PCI RCA, Carotid stenosis, chronic anemia, GERD, Pulmonary Htn, seizure disorder, cerebral amyloid angiopathy, prior SAH and recent DVT presenting to ED on 07/29/2023 for Fall leading to Traumatic brain injury with SDH. Reason for consult: Cognition impairment Called Daughter Hebert ALVAREZ,HEBERT Daughter [phone] Before this admission Patient was living with her DTR and MILE and just moved to her own home like a week ago to try to live independently, by herself. Dtr states no concerns of Memory impairment. Able to do her medications, telephone use and ambulation with walker. As per DTR she is very sharp and wanted to try to live by herself more independently. Last few weeks Anxiety issues, was on Xanax 0.25 BID. Doing well with meds. Patient recently lost her son, in ([place]??)and patients Dtr is also going through a new medical diagnosis which has made patient more anxious and stressfully. HCPOA: None, DTR is Next of kin. Code: DTR states have never discussed till now, she will try to have conversation once pt is more alert. Full code. A/P: # Delirium Mixed, Hypoactive 2/2 ICH, Fall. # Possible underlying Cognitive impairment, Unable to assess due to confusion. No previous Diagnosis of dementia(As per family) Precautions: - promote sleep-wake cycle, nocturnal quiet hours 10 p to 7 am - frequent re-orientation, encourage family visitation - encourage use of glasses, hearing aids if available - daily mobilization, consider music therapy, art therapy - avoid lines and restraints, order sitter if needed - avoid anticholinergics, psychoactive meds, minimize opioids Check TSH and B12. Neurosurgery managing SDH. Will avoid adding new medications for hypoactive delirium, Prefer Reorientation every 4 hrs, More family visitations, Sitter if needed. Avoid pain episodes Avoid constipation and urinary retention. # Acute pain from truama: Avoid painful episodes with PRN oxycodone and Tylenol scheduled Q6. # Seizure precaution: continue Keppra 750 mg BID IV X 7 days. # Anxiety/adjustment with new diagnosis of ICH: Pt was requiring Xanax at home BID. She was scare at home that her Brain will bleed anytime. # Insomnia: Can try melatonin 3mg at bedtime. #Medication management - current and outpatient medication list reviewed #Debility - PT/OT evaluation #At risk for malnutrition - nutrition evaluation Wt Readings from Last 5 Encounters: 07/29/23 183 lb 11.2 oz (83.3 kg) #Rule dysphagia Currently NPO, Bedside eval pending. - INSPECTOR CHIEF for swallow evaluation Advanced care planning, goals of care - NO living will and hcpoa Full code Discharge planning - tentative discharge plan is possible Snf facility for few weeks and later Home with Daughter with [facility] services As per today's assessment pt will need 24X7 supervision. She will require Assistance with Adls and IADLs after discharge. Thank you for the consultation and allowing the Geriatric Medicine service to work with you for the benefit of your older patient. Jer Serra MD Department of Geriatric Medicine Number of children: 2 kids, Son this year. Primary Caregiver: DTR Supportive family or social network: Yes Receiving community services: Yes Advance Care Planning: Code Status: Full Code Living Will: No Health Care Power of Plunger Scoop Operator: No Review of Systems: Review of Systems Constitutional: Positive for malaise/fatigue. Negative for chills and fever. HENT: Negative for hearing loss. Eyes: Negative for blurred vision. Respiratory: Negative for cough and shortness of breath. Cardiovascular: Negative for chest pain, palpitations and leg swelling. Gastrointestinal: Negative for abdominal pain and heartburn. Genitourinary: Negative for dysuria and frequency. Musculoskeletal: Positive for back pain and joint pain. Negative for myalgias. Skin: Negative for rash. Neurological: Negative for dizziness, loss of consciousness and weakness. Psychiatric/Behavioral: Positive for depression and memory loss. The patient is nervous/anxious and has insomnia. Patient's Medications, Past Medical, Surgical, Social, and Family History have been reviewed. Please see relevant sections in Epic EMR for details. Physical Examination: BP 158/77 Pulse 83 Temp 98.6 F (37 C) (Oral) Resp 12 Ht 5' 7 (1.702 m) Wt 183 lb 11.2 oz (83.3 kg) SpO2 95% BMI 28.77 kg/m Physical Exam Neurological: Mental Status: She is disoriented. Motor: Weakness present. Coordination: Coordination abnormal. Gait: Gait abnormal. Psychiatric: Attention and Perception: She is inattentive. Mood and Affect: Mood is depressed. Behavior: Behavior is slowed. Cognition and Memory: Cognition is impaired. Memory is impaired. She exhibits impaired recent memory and impaired remote memory. Kuo diagnostic studies personally reviewed: CBC WBC RBC Hgb Hct MCV RDW Plt 07/30/23218 9.1 3.53 10.3 32.4 92 14.5 224 07/29/23 1722 8.5 4.15 12.2 38.3 92 14.3 252 07/29/23 1339 8.9 3.93 12.0 35.7 91 14.3 214 Basic Metabolic Panel (Last 5 results in the past 365 days) Na K Cl CO2 Gap Glu BUN Cr Ca Mg PO4 07/30/23218 139 4.0 104 30 9 104 18 0.71 8.8 07/30/239 3.3 07/30/23 0219 1.9 07/29/23 1722 141 4.1 103 29 13 103 18 0.77 9.3 07/29/23 1339 138 4.1 102 28 12 94 20 0.78 9.1 05/07/23 1113 134 99 24 91 Comment: The [place] [employer] (ADA) provides guidance for cutoff values for fasting glucose and random glucose. The ADA defines fasting as no caloric intake for at least 8 hours. Fasting plasma glucose results between 100 to 125 mg/dL indicate increased risk for diabetes (prediabetes). Fasting plasma glucose results greater than or equal to 126 mg/dL meet the criteria for diagnosis of diabetes. In the absence of unequivocal hyperglycemia, results should be confirmed by repeat testing. In a patient with classic symptoms of hyperglycemia or hyperglycemic crisis, random plasma glucose results greater than or equal to 200 mg/dL meet the criteria for diagnosis of diabetes. Reference: Standards of Medical Care in Diabetes 2016, [place] [employer]. Diabetes Care. 2016.39(Suppl 1). 19 0.73 9.3 05/06/23 0358 135 102 23 87 Comment: The [place] [employer] Association (ADA) provides guidance for cutoff values for fasting glucose and random glucose. The ADA defines fasting as no caloric intake for at least 8 hours. Fasting plasma glucose results between 100 to 125 mg/dL indicate increased risk for diabetes (prediabetes). Fasting plasma glucose results greater than or equal to 126 mg/dL meet the criteria for diagnosis of diabetes. In the absence of unequivocal hyperglycemia, results should be confirmed by repeat testing. In a patient with classic symptoms of hyperglycemia or hyperglycemic crisis, random plasma glucose results greater than or equal to 200 mg/dL meet the criteria for diagnosis of diabetes. Reference: Standards of Medical Care in Diabetes 2016, [place] [employer]. Diabetes Care. 2016.39(Suppl 1). 15 0.70 8.7 LFT's (last 3 years, up to 5 values) (Last 5 results in the past 3 years) T Prot Albumin D Bili T Bili Alk Phos ALT AST 05/07/23 1113 6.3 0.4 05/06/23 0358 5.4 0.3 05/04/23 2309 6.1 0.2 05/03/23 2310 5.8 0.2 05/03/23 1323 5.8 0.4 TSH None No results found for: B12 , VITD25 Imaging personally reviewed and agree with the findings of the radiologist Results for orders placed during the hospital encounter of 07/29/23 CT HEAD W/O CONTRAST Narrative EXAMINATION: CT HEAD W/O CONTRAST 07/29/2023 10:12 PM CLINICAL HISTORY: Subdural hematoma ASSOCIATED DIAGNOSIS: Subdural hematoma ORDERING PROVIDER: YUNIOR SANCHEZ TECHNOLOGISTS NOTE: COMPARISON: Head CT from 07/29/2023 1629 hours TECHNIQUE: Thin axial imaging of the head was performed without intravenous contrast. FINDINGS: Expected continued evolution of left mixed density left hemispheric subdural hematoma with mild compression of the left cerebral hemisphere left lateral ventricle. Subdural blood products measure 11 mm in greatest thickness over AP ventral left frontal convexity. Rightward midline shift of 4 mm is similar to prior, accounting for interobserver measurement differences. Unchanged layering subdural hemorrhages along the tentorial leaflets. Subcortical parenchymal hemorrhages in the dorsal left superior and middle frontal gyri at the vertex are unchanged. No significant ventricular trapping. No new hemorrhage or CT evidence of acute territorial infarction. Brain volume and ventricular caliber are within normal limits. Patchy hypodensities in the periventricular white matter are nonspecific but favor sequela of moderate chronic small vessel ischemia. No acute abnormality of the paranasal sinuses and tympanomastoid cavities are clear. Impression : Sequelae of traumatic brain injury with expected continued evolution of left holohemispheric subdural hematoma, stable mass effect, and rightward midline shift. Unchanged small dorsal left frontal subcortical hemorrhages suggestive of low-grade diffuse axonal injury. MACRO: None I spent a total of 84 minutes spent providing patient care on 07/30/2023: Time-based billing justifications: Reviewing (chart, labs, and other clinical notes) Obtaining history (or reviewing separately obtained history) Patient visit (including performing a medically appropriate exam) Counseling/educating the patient/family/caregiver Referring/communicating with other health transitional care manager - when not reported separately Charting in [facility] [employer] Work Phone: 07-30-2023 Consult note Associated Order (s): IP PHYSICAL THERAPY SERVICE REQUEST PHYSICAL THERAPY ACUTE EVALUATION Referral received, chart reviewed. Patient seen from 9:30 to 9:50 on 5W unit for 20 minutes. Eval + treat. Co-eval with OT. Patient required the skills of two therapists for safe mobility and high medical complexity of the patient. Admit date/time: 07/29/2023 1:28 PM Reason for Admit: 83 yo transfer from [facility] s/p fall leaving [employer]ec[employer]. Diagnosis: Left frontal/parietal/temporal SDH and 4 mm midline shift L sided facial abrasion L hand laceration bruising contusion to bilateral knees Precautions/Activity Order: High falls, full code, progressive mobility Procedures this admit: None Past Medical and Surgical History: PAST MEDICAL HISTORY: Arthritis, asthma, chronic anemia, CAD (s/p NSTEMI 2021), GERD, HTN, pulmonary hypertension, morbid obesity, seizure disorder, seasonal allergies, cerebral amyloid angiopathy, prior SAH, DVT (no longer on eliquis) PAST SURGICAL HISTORY: PCI (2021) Eye surgery, b/L knee surgery, b/L shoulder surgery, Identification was verified by patient verbalizing his/her name and date of . and patient's id band and date of . Risks and Benefits of physical therapy: Patient informed of risks and benefits of treatment SUBJECTIVE: Patient Subjective: Where is my daughter? 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 Patient is a poor historian Home: 0 steps to enter rails. 0 steps to bedroom/bathroom rails. Assistance available: lives with daughters? Equipment available: rolling walker? 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, IV, and Sequential Compression Devices (SCDs), kunz bruising on (B) LE Behavior: Impaired, Awake, pleasant & cooperative Oriented x self Follows 1 step commands inconsistently and with cues, 75% of the time Pain: Site/Location: (B) LE; Pain Scale: moderate/10 Pain Relief Interventions Implemented: Positioning, Rest, and Notified Nurse Passive ROM: Not formally tested however observed WFL for basic level of mobility Strength/Active ROM: Grossly at least 3/5 throughout Mobility: Rolling to left: minimal assistance x2 Sidelying to sit: minimal assistance x2 Sitting balance: Good Sit to stand: minimal assistance x2 Transfers: minimal assistance x2 Ambulation/Gait: Patient walked 10 ft with RW min Ax2, slow pace, flexed posture, decreased (B) LE step lengths. Endurance: Impaired Patient/Family Education: Instructed Patient in roles of therapy. Instructed Patient in roles, goals, treatment plan: demonstrated good verbal understanding. Instructed patient in Exercise Program for Ankle pumps x10 reps Patient up in chair with call light in reach. Chair alarm intact. DME: With Patients permission ordered no equipment via [employer] Order. If any questions contact [facility] DME Provider at [phone]. 07/30/2023 6 Clicks Basic Mobility PT Difficulty turning over in bed 3 Difficulty sitting down and standing up from a chair with arms 3 Difficulty moving from lying on back to sitting on the side of the bed 3 Help from another person moving to and from bed to a chair 3 Help from another person to walk in hospital room 2 Help from another person climbing 3-5 steps with a railing 1 PT 6 Clicks Score 15 6 Click Score Guidelines: 1 - Total = Requires total assistance, or cannot do at all. 2 - A lot = Requires a lot of help (maximun to moderate assistance) Can use assistive devices. 3 - A little = Requires a little help (supervision, minimal assistance) Can use assistive devices. 4 - None = Does not require any help and does the activity independently. Can use assistive devices. ASSESSMENT: Carly Marcelino is a 83 year old female s/p fall with TBI presents with confusion, decreased strength and endurance, causing patient difficulty with ambulation quality and tolerance. Patient would benefit from acute PT services of gait training, therex, and theract to improve patient ambulation quality/tolerance, transfer skills and strengthening to enhance functional mobility and safety. Recommend further therapy services in a Snf Setting once medically cleared. Will continue to follow patient while in hospital as appropriate. Problems: Pain Decreased ROM/strength Decreased functional mobility Decreased endurance Decreased balance Rehabilitation Potential: Fair Goals (to be achieved by 10 days or by discharge from acute care): Patient will achieve acceptable level of pain control to allow participation in therapy. Patient will increase bed mobility to contact guard assistance Patient will perform sit to/from stand with rolling walker with contact guard assistance Patient will ambulate 50 feet with rolling walker with contact guard assistance Patient will increase ROM/Strength/Endurance/Balance to allow for above goals. Patient/Family independent with exercise program/precautions. PLAN OF CARE: Frequency: Patient to be seen 1-3 times a week Interventions: Functional mobility ROM/Strengthening Home exercise program Discharge planning and equipment ordering as needed Patient /Family education The evaluation findings and treatment plan were discussed with the patient/family. The patient/family indicated understanding and agreement with the plan. Vickie Pete, PT, DPT #[id number] NA = Not Assessed, I = Independent, MS = Modified Independent, Sup = Supervised, Set up = Physical Assistance for Set-up Only, Min = Minimal Assistance, Mod = Moderate Assistance, Max = Max assistance; Dep = Dependent; AROM = Active Range of Motion; PROM = Passive Range of Motion; MMT = Manual Muscle Test; LE = Lower Extremity [facility] Work Phone: 07-30-2023 Progress note Formatting of t his note might be different from the original. 0500 - At 0400 neuro check, pt unable to state year of , where she is, why she is here, the current month or year. Pt would smile and say uh huh to everything. An PIV attempt was made due to pt having only 1 PIV at this time. During attempt, pt asked why we were hurting her and why we had to do that. This RN explained that we were attempting to place another IV and we were not trying to hurt her. Pt also has not voided since around 2200 with straight cath. This RN explained that I was going to check her bladder. While bladder scanning the pt, pt asked who this RN was and why I was checking her bladder multiple times. This RN explained that I am her nurse because she in the hospital and that since she had not peed in 6 hours, I needed to make sure that her bladder was not full. Dr. Gilman notified, stated that she would notified neurosurgery. 05 Viviana Marrero PA-C down to assess pt. Viviana stated that pt did not need repeat CT head. [employer] 07-29-2023 Note NSGY Treatment Plan Note Repeat head CT stable. Okay for q2h neurochecks. Viviana Marrero PA-C Neurosurgery Service Pager [phone] [employer] [facility] 07-29-2023 Plan of care note NSGY Treatment Plan Note Repeat head CT stable. Okay for q2h neurochecks. Viviana Marrero PA-C Neurosurgery Service Pager [phone] [employer] Work Phone: 07-29-2023 Physician Emergency department Note EMERGENCY DEPARTMENT - VISIT NOTE HISTORY OF PRESENT ILLNESS No chief complaint on file. Room Service Manager: not needed - patient preferred language is Martiniquais. 83 year old female brought in as transfer from [facility] following a mechanical fall while walking into [employer] this morning. She was found at the OSH to have ICH with midline shift for which she was transferred to . + ASA, prior history of AC which was d/c d/t prior SAH. -- REVIEW OF SYSTEMS ---- Review of Systems Musculoskeletal: Knee pain Neurological: Positive for headaches. ------ PAST HISTORY --------- Pertinent Past History: No past medical history on file. Patient Active Problem List: Subdural hematoma (HCC) [S06.5XAA] Pertinent Social History: ---- PHYSICAL EXAM BP 156/65 Pulse 67 Temp 97.5 F (36.4 C) (Oral) Resp 12 Ht 5' 7 (1.702 m) Wt 183 lb 11.2 oz (83.3 kg) SpO2 95% BMI 28.77 kg/m Physical Exam Vitals reviewed. Constitutional: Appearance: She is not ill-appearing. HENT: Head: Normocephalic. Comments: Superficial laceration above left eyebrow around 1cm Superficial laceration over left cheek, around 0.5 cm Nose: Nose normal. Comments: No nasal septal hematoma Mouth/Throat: Mouth: Mucous membranes are moist. Pharynx: Oropharynx is clear. Comments: No oral injuries Eyes: Extraocular Movements: Extraocular movements intact. Conjunctiva/sclera: Conjunctivae normal. Pupils: Pupils are equal, round, and reactive to light. Cardiovascular: Rate and Rhythm: Normal rate and regular rhythm. Pulses: Normal pulses. Heart sounds: Normal heart sounds. Pulmonary: Effort: Pulmonary effort is normal. Breath sounds: Normal breath sounds. Abdominal: General: Abdomen is flat. Palpations: Abdomen is soft. Tenderness: There is no abdominal tenderness. There is no guarding. Musculoskeletal: Cervical back: Normal. No bony tenderness. Thoracic back: Normal. No bony tenderness. Lumbar back: Normal. No bony tenderness. Right knee: Swelling and ecchymosis present. Tenderness present. Left knee: Swelling present. Tenderness present. Comments: Superficial abrasions over bilateral dorsal hands Neurological: General: No focal deficit present. Mental Status: She is alert and oriented to person, place, and time. Motor: No weakness. MEDICAL DECISION MAKING and ED COURSE Discussion with External Provider: Flap Lining Binder from trauma surgery service recommends admission to TICU Independent Test Interpretation: Lab studies reviewed, please see ED course Janny Perez Course: ED Course as of 07/29/23 1834 Sun July 29, 2023 1404 Lactate: 1.3 Normal lactate [KS] 1404 Hemoglobin: 12.0 Normal hemoglobin [KS] 1444 BASIC METABOLIC PANEL(aka BMP) [CH8]: Glucose 94 Sodium 138 Potassium 4.1 Carbon Dioxide 28 Chloride 102 BUN 20 Creatinine 0.78 Calcium 9.1 Anion Gap 12 Estimated GFR 75 No electrolyte abnormalities [KS] ED Course User Index [KS] Rebecca Wood MD Assessment & Plan: 83 year old female brought in as transfer from [facility] for SDH after a mechanical fall Patient is clinically and HD stable. Vitals within acceptable ranges. CT head (read from [facility]): L frontal/parietal/temporal SDH with mass effect and midline shift Patient also had XR L hip, R knee, CT C/A/P, C/T/L spines- negative except for 1.5mm L nasal septum deviation per Dr. Cisneros at . Patient was seen and assessed by NSGY who recommended admission to TICU for Q1 hr neuro checks, keppra, and repeat stability head CT at 16:00 Patient admitted to TICU. IMPRESSION AND DISPOSITION Clinical Impression Diagnosis Comment Subdural hematoma (HCC) [S06.5XAA] Fall, initial encounter [W19.XXXA] Disposition: Admitted to ICU/Stepdown: Surgical Intensive Care Unit (SICU / TICU). Report called to The patient has received a medical screening examination and within reasonable clinical confidence the patient was stabilized within the capabilities of the emergency department and requires admission / observation. Counseling: Spoke with the patient and discussed today s findings, in addition to providing specific details for the plan of care and expected course. They were given the opportunity to ask questions. Rebecca Wood MD [facility] 07-29-2023 Emergency department Note EMERGENCY DEPARTMENT - VISIT NOTE HISTORY OF PRESENT ILLNESS No chief complaint on file. Room Service Manager: not needed - patient preferred language is Martiniquais. 83 year old female brought in as transfer from [facility] following a mechanical fall while walking into [employer] this morning. She was found at the OSH to have ICH with midline shift for which she was transferred to . + ASA, prior history of AC which was d/c d/t prior SAH. -- REVIEW OF SYSTEMS ---- Review of Systems Musculoskeletal: Knee pain Neurological: Positive for headaches. ------ PAST HISTORY --------- Pertinent Past History: No past medical history on file. Patient Active Problem List: Subdural hematoma (HCC) [S06.5XAA] Pertinent Social History: ---- PHYSICAL EXAM BP 156/65 Pulse 67 Temp 97.5 F (36.4 C) (Oral) Resp 12 Ht 5' 7 (1.702 m) Wt 183 lb 11.2 oz (83.3 kg) SpO2 95% BMI 28.77 kg/m Physical Exam Vitals reviewed. Constitutional: Appearance: She is not ill-appearing. HENT: Head: Normocephalic. Comments: Superficial laceration above left eyebrow around 1cm Superficial laceration over left cheek, around 0.5 cm Nose: Nose normal. Comments: No nasal septal hematoma Mouth/Throat: Mouth: Mucous membranes are moist. Pharynx: Oropharynx is clear. Comments: No oral injuries Eyes: Extraocular Movements: Extraocular movements intact. Conjunctiva/sclera: Conjunctivae normal. Pupils: Pupils are equal, round, and reactive to light. Cardiovascular: Rate and Rhythm: Normal rate and regular rhythm. Pulses: Normal pulses. Heart sounds: Normal heart sounds. Pulmonary: Effort: Pulmonary effort is normal. Breath sounds: Normal breath sounds. Abdominal: General: Abdomen is flat. Palpations: Abdomen is soft. Tenderness: There is no abdominal tenderness. There is no guarding. Musculoskeletal: Cervical back: Normal. No bony tenderness. Thoracic back: Normal. No bony tenderness. Lumbar back: Normal. No bony tenderness. Right knee: Swelling and ecchymosis present. Tenderness present. Left knee: Swelling present. Tenderness present. Comments: Superficial abrasions over bilateral dorsal hands Neurological: General: No focal deficit present. Mental Status: She is alert and oriented to person, place, and time. Motor: No weakness. MEDICAL DECISION MAKING and ED COURSE Discussion with External Provider: Flap Lining Binder from trauma surgery service recommends admission to TICU Independent Test Interpretation: Lab studies reviewed, please see ED course Janny Perez Course: ED Course as of 07/29/23 1834 Sun July 29, 2023 1404 Lactate: 1.3 Normal lactate [KS] 1404 Hemoglobin: 12.0 Normal hemoglobin [KS] 1444 BASIC METABOLIC PANEL(aka BMP) [CH8]: Glucose 94 Sodium 138 Potassium 4.1 Carbon Dioxide 28 Chloride 102 BUN 20 Creatinine 0.78 Calcium 9.1 Anion Gap 12 Estimated GFR 75 No electrolyte abnormalities [KS] ED Course User Index [KS] Rebecca Wood MD Assessment & Plan: 83 year old female brought in as transfer from [facility] for SDH after a mechanical fall Patient is clinically and HD stable. Vitals within acceptable ranges. CT head (read from [facility]): L frontal/parietal/temporal SDH with mass effect and midline shift Patient also had XR L hip, R knee, CT C/A/P, C/T/L spines- negative except for 1.5mm L nasal septum deviation per Dr. Cisneros at . Patient was seen and assessed by NSGY who recommended admission to TICU for Q1 hr neuro checks, keppra, and repeat stability head CT at 16:00 Patient admitted to TICU. IMPRESSION AND DISPOSITION Clinical Impression Diagnosis Comment Subdural hematoma (HCC) [S06.5XAA] Fall, initial encounter [W19.XXXA] Disposition: Admitted to ICU/Stepdown: Surgical Intensive Care Unit (SICU / TICU). Report called to The patient has received a medical screening examination and within reasonable clinical confidence the patient was stabilized within the capabilities of the emergency department and requires admission / observation. Counseling: Spoke with the patient and discussed today s findings, in addition to providing specific details for the plan of care and expected course. They were given the opportunity to ask questions. Rebecca Wood MD Prehospital Medications: 50 mcg fentanyl Mechanical fall walking into [employer] today, head lac with subdural hematoma Fall with ICH and 4 mm midline shift Critical Care Provider Statement Critical care time was provided for 35 minutes by the attending physician. The time involved in the performance of this care was exclusive of separately billable procedures, teaching time and treating other patients. Critical care was necessary because of an illness or injury that acutely impaired one or more vital organs systems such that there was a high probability of imminent or life threatening deterioration in the patient s condition. The critical illness/injury acutely impaired the following organ systems: Central Nervous Critical care was time was spent personally by me on the following activities: obtaining history from patient, obtaining history from family / other source, examination of patient, ordering and/or performing treatments and / or interventions, re-evaluations of patient condition / response to treatment, ordering and review of radiographic studies, discussions with consultants and / or primary provider, and review of old charts JANNY IGLESIAS MD ATTENDING NOTE I saw and evaluated the patient. I personally obtained the kuo and critical portions of the history and physical exam. I reviewed the resident's documentation and discussed the patient with the resident. I agree with the resident's medical decision making as documented in the resident's note. JANNY IGLESIAS MD documented in this encounter [facility] 07-29-2023 Plan of care note Problem: Routine Care: Goal: Patient care will be managed and maintained throughout hospital stay per unit specific routine care procedure Note: Routine care managed per TICU/SICU protocol Problem: Impaired Skin Integrity: Goal: Skin integrity will improve and/or be maintained Note: Duel nurse skin inspection upon shift change; Daily/ PRN dressing changes; Q2 turns Problem: Altered Elimination: Goal: Establishment of individualized bowel routine will be obtained Note: Bowel regimen per MD order Problem: Impaired Mobility: Goal: Ability to tolerate increased activity will improve and be maintained Note: PT/ OT; Progressive mobility Problem: Altered Neurological Status: Goal: Optimal neurological status will be maintained or regained Note: Complete neurologic assessment Q1 [employer] 07-29-2023 Plan of care note NEUROSURGERY TREATMENT PLAN NOTE rCTH reviewed and discussed with attending, Dr. Li. CTH repeat imaging results - slight interval increase in SDH size, MLS appears grossly stable, small Repeat exam - Ox2, UE without drift but tremulous, no gross CN deficit Plan: -trauma primary -Q1 neuro checks -repeat CTH in 6 hours (~ 2200) -vital signs SBP < 170 -SCDs for DVT prophylaxis -please transfuse 1 U platelets -Hold anticoagulation or antiplatelet -will continue to follow Patient clinical information, exam and imaging discussed with attending, Dr. Li who agrees with the above. Please call anytime with questions or concerns. Ayanna Ignacio PA-C Neurosurgery Pager - [phone] [employer] Work Phone: 07-29-2023 Plan of care note Division of Trauma, Surgical Critical Care, EGS Ticket to Roll Note . Dr. Sanchez, who is the RUP. The patient is transferring from ED, room # 33, to TICU, room # 207-1. The patient was added to the Trauma Surgery list. Vickie Hummel PA-C RUP = Receiving unit provider RNF = Regular nursing floor [employer] Work Phone: 07-29-2023 Consult note Associated Order (s): IP SURGERY NEURO CONSULT Images from the original note were not included. NEUROSURGERY CRANIAL TRAUMA H&P Patient Name: Carly Marcelino Primary Care Physician: No primary care provider on file. CONSULTED BY: ED CONSULTED FOR: SDH CHIEF COMPLAINT: fall HPI: This is a 83 year old with PMH of HTN, CAD (NSTEMI, stent in RCA), carotid stenosis presenting to the ED after a fall leaving [employer]. Was transferred to [facility] from [facility] d/t SD with a Left SDH and 4 mm midline shift. Patient tripped and fell leaving [employer], there was no LOC, she remembers the event, c/o mild WISDOM on the L side and pain from cervical collar, no vision changes or vomiting. Recent history of SAH that was managed at [facility], occurred while patient was on eliquis (for history of prior DVT), unclear source but was suspected to be from CAA (cerebral amyloid angiopathy), she was taken off eliquis at that time, had EEG with PLEDs and continued on keppra Additional injuries include: L sided facial abrasion, L hand laceration, bruising contusion to bilateral knees Antiplatelet/Anticoagulant: 81 mg ASA (last dose this morning 9 am) Coags: PTT - in process PT/INR - in process Platelet - 214 Sodium: in process Previous TBI:No PAST MEDICAL HISTORY: No past medical history on file. PAST SURGICAL HISTORY: No past surgical history on file. FAMILY HISTORY: No family history on file. SOCIAL HISTORY: Social History Occupational History Not on file Tobacco Use Smoking status: Not on file Smokeless tobacco: Not on file Substance and Sexual Activity Alcohol use: Not on file Drug use: Not on file Sexual activity: Not on file MEDICATIONS: 81 mg daily ASA 500 mg Keppra BID ALLERGIES: Not on File COMPLETE REVIEW OF SYSTEMS: ROS 02/20 systems negative other than above LABS: CBC/PT/INR WBC RBC Hgb Hct MCV RDW Plt PT aPTT INR 07/29/23 1339 8.9 3.93 12.0 35.7 91 14.3 214 Basic Metabolic Panel None NEURO EXAM: Ox2-3, awake, alert, following commands No UE drift but is tremulous PERRL OS 2mm OD 2mm EOMI No slurred speech, facial droop, tongue protrudes symmetrically RUE 5/5 LUE 5/5 LLE 4+/5 (pain limited) LUE 4+/5 (pain limited) Sensation intact bilat UE And LE to light touch PHYSICAL EXAMINATION: Vital signs reviewed General appearance: bruising and abrasions L side of the face Skin: warm, dry Head: Normocephalic Nose/Sinuses: Nares normal. Neck: supple, trachea midline, C collar in place Lungs: chest symmetric, normal respiratory rate and rhythm Heart: NSR on tele monitor Abdomen: soft, nontender Extremities: bilateral bruising on knees, worse on RT, L hand bruising and laceration Neuro: above RADIOLOGY: 07/29/2023 CTH: (on [facility] from OSH) - 11 mm L frontoparietal SDH along convexity with [address] SCORE: 1. Basal cisterns: 0: Normal 2. Midline shift: 0: Less than or equal to 5 mm 3. Epidural mass lesion: 1: Absent 4. Intraventricular blood or traumatic SAH: 0: Absent Total Score: 2 (Calculated sum + 1) Six Month Mortality: Score 1: 0% Score 2: 7% Score 3: 16% Score 4: 26% Score 5: 53% Score 6: 61% 1. TBI sub-type: SDH: Greater than or equal to 1 cm 2. Laterality: Left 3. Location: Convexity 4. Pupillary response: Both reactive 5. Associated conditions: None 6. Loss of consciousness: None ASSESSMENT/PLAN: This is a 83 year old with PMH of HTN, CAD (NSTEMI, stent in RCA), carotid stenosis presenting to the ED after a fall leaving [employer] with a head injury. On [address] from OSH with 11 mm L side SDH with 4 mm MLS -TICU -Q1 neuro checks -Repeat CT head 4 hours after initial imaging (~ 4PM) -Keppra 750 mg BID x 7 days for seizure prophylaxis (increase from 500 mg home dose) -SBP <170 per trauma guidelines -Ensure labs complete (CBC, BMP, Type and Screen, PT/INT, PTT) -Hold all antiplatelets/anticoagulants -Hold home aspirin -Plts >100, INR <1.4 -Normonatremia, normothermia (<38.0 C) , euvolemia -SCDs only at this time for DVT prophylaxis. Hold SQH at this time - Will continue to follow Patient seen within 30 minutes of initial consultation. Recommendations provided directly to the trauma service. Above plan was discussed within 30 minutes of consult and the staff Dr. Li who agree with the above management. Please call anytime with questions or concerns. Ayanna Ignacio PA-C Neurosurgery Pager - [phone] 07/29/2023 - 2:04 PM Split/Shared Documentation I approve the management plan for this patient and take responsibility for the plan as documented. Independent Interpretation of Tests Performed by Another Physician/ASH: I personally performed, reviewed, and interpreted CTH with findings of SDH with midline shift. Ayanna Ignacio PA-C Teaching Physician Note: I saw and evaluated the patient face to face. I personally obtained the kuo and critical portions of the history and physical exam face to face. I reviewed the PA/WEB PROGRAMMER/resident's documentation and discussed the patient with the PA/WEB PROGRAMMER/resident. I agree with the PA/WEB PROGRAMMER/resident's medical decision making as documented in the PA/WEB PROGRAMMER/resident's note. Artem Li MD [facility] Work Phone: 07-29-2023 Evaluation + Plan note Extrac jamila from: Title:ED Note Author:Stacia Dwyer DO Date: Altered mental status (R41.8 2: Altered mental status, unspecified) Contusion of hip (S70.00XA: Contusion of unspecified hip, initial encounter) Contusion of knee (S80.00XA: Contusion of unspecified knee, initial encounter) Facial contusion (S00.83XA: Contusion of other part of head, initial encounter) Hypertensive emergency (I16.1: Hypertensive emergency) Traumatic subdural hematoma (SDH) (S06.5XAA: Traumatic subdural hemorrhage with loss of consciousness status unknown, initial encounter) Orders: hydrALAZINE, 10 mg = 0.5 mL, Injection, IV Push, Once, Stop date 07/29/23 12:19:00 EDT, STAT, Start date 07/29/23 12:19:00 EDT, 07/29/23 12:19:00 EDT morphine, 2 mg = 1 mL, Injection, IV Push, Once, Stop date 07/29/23 12:19:00 EDT, STAT, Start date 07/29/23 12:19:00 EDT, 07/29/23 12:19:00 EDT morphine, 4 mg = 1 mL, Injection, IV Push, Once, Stop date 07/29/23 11:12:00 EDT, STAT, Start date 07/29/23 11:12:00 EDT, 07/29/23 11:12:00 EDT ondansetron, 4 mg = 2 mL, Injection, IV Push, Once, Stop date 07/29/23 11:12:00 EDT, STAT, Start date 07/29/23 11:12:00 EDT, 07/29/23 11:12:00 EDT ABO/Rh ABO/Rh History Check Antibody Screen Basic Metabolic Panel Blood Bank ID# CBC w/ Auto Diff Cervical Collar CT Abdomen/Pelvis w/ Contrast CT Chest w/ Contrast CT Head or Brain w/o Contrast CT Maxillofacial w/o Contrast CT Spine Cervical w/o Contrast Drug Screen Urine ECG 12 Lead Adult ED Cardiac Monitoring eGFR Ethanol Level Extra SST Tube Hepatic Function Panel Lactic Acid Lipase Level NPO Diet Oxygen Therapy PT & PTT Pulse Oximetry Continuous Saline Lock Insert Transfer Patient to Troponin XR Hip 2-3 Views Left + Pelvis XR Knee Complete 4+ Views Right [facility]05-19-2024 History of Present illness Narrative* Lacey Mendez LISW - 07/29/2023 1:59 PM EDT CAT 2 Pt is a 83 y/o F who arrived via [facility] from [facility] s/p fall. Per report, pt tripped and fell while walking into [employer] this morning. Pt presents with a subdural head bleed & shift. Daughter present at outside hospital. SW contacted daughter Hebert Alvarez [phone] and provided her with an update. Daughter will be coming to the hospital shortly. Daughter made aware of trauma exam and neurosurgery consult. PLAN: Admit. JULIO CESAR Ram E.D. Social Work documented in this [id number] History and physical note* Nahid Molina MD - 07/29/2023 1:39 PM EDT Images from the original note were not included. [facility] Department of Surgery Division of Trauma Surgery, Acute Care Surgery, Critical Care, and Gregory TRAUMA SURGERY HISTORY AND PHYSICAL Carly [facility] [id number] BASIC INJURY INFORMATION: Level of activation: Category 2 Trauma Mode of transport: Advance life support Mechanism of injury: Fall from ground level Complicating features: Not applicable Protective measures: Not applicable Date of Injury: 07/29/2023 Time of Injury: morning Patient origin: Transfer from outside facility HISTORY OF PRESENT INJURY: Carly Marcelino is a 83 year old female brought in as transfer from [facility] following a fall while walking into [employer] this morning. She was found at the OSH to have ICH with midline shift for which she was transferred to . + ASA, prior history of AC which was d/c d/t prior SAH Loss of consciousness: No Initial interventions: None Hemodynamic status in ED: None applicable PRIMARY SURVEY: Airway: Intact Breathing: Normal Breath Sounds: Breath sounds equal bilaterally. Circulation: Pulses: Normal Skin: Warm and Dry Disability: Pupils: PERRL GCS: Best Eyes: 4 Best Verbal: 5 Best Motor: 6 Total: 15 SECONDARY SURVEY: BP 138/92 Pulse 61 Temp 97.9 F (36.6 C) (Oral) Resp 9 SpO2 98% Neurologic: Alert and oriented, appropriate, moves all extremities. Strength symmetrical, no sensory deficits. HEENT: Head: Abrasion over L eyebrow, frontal cephalohematoma Eyes: PERRL Ears: No hemotympanum Nose: No bloody drainage. Throat: Oral cavity without trauma. Neck: No midline tenderness, lacerations, or wounds Chest: No crepitus or pain with palpation; no abrasions or contusions; no gross deformities Pulmonary: Breath sounds clear, symmetrical; no wheezes, rales, or consolidation Cardiovascular: Pulses: Bilateral radial, femoral, DP and PT pulses are normal. Abdomen: Non-distended; non-tender to palpation; no scars, lacerations, or contusions Rectal: Not performed. Pelvis/Perineum: Pelvis is stable to palpation Musculoskeletal: Back/Spine: Thoracolumbar spinal column non-tender Extremities: Tenderness to L hip, no loss of ROM, L knee with ecchymosis noted, R knee with tenderness, ecchymosis and swelling, pain limits ROM. BUE without gross deformity, skin tear over dorsal L hand and abrasions to dorsal R hand. Additional exam findings: None PAST MEDICAL HISTORY: Arthritis, asthma, chronic anemia, CAD (s/p NSTEMI 2021), GERD, HTN, pulmonary hypertension, morbidobesity, seizure disorder, seasonal allergies, cerebral amyloid angiopathy, prior SAH, DVT (no longer on eliquis) PAST SURGICAL HISTORY: PCI (2021) Eye surgery, b/L knee surgery, b/L shoulder surgery, PRE-ADMISSION MEDICATIONS: (per care everywhere) Albuterol prn Aspirin 81mg daily Baclofen 5mg at bedtime Pepcid 40mg daily Ferrous sulfate 325mg daily Fish oil Gabapentin 300mg TID Keppra 500mg at bedtime Losartan 50mg daily Mag oxide 12.5mg BID Montelukast 10mg daily MVI Zyrtec 10mg prn Anti-platelet use: Yes: Aspirin 81mg daily Anti-coagulant use: No ALLERGIES: Labetalol, depakote, dilantin, norvasc, procardia, tegretol, hydrochlorothiazide (per care everywhere) SOCIAL HISTORY: Prior smoker (quit >30 years ago) Living status: Unknown Primary language: Unknown Functional status: Unknown Impairments: Unknown Assistive Devices Used: Unknown FAMILY HISTORY: Hx of cancer in mother and brother REVIEW OF SYSTEMS: Constitutional: Negative Eyes: Negative Ears/Nose/Mouth/Throat: Negative Respiratory: Negative Cardiovascular: Negative Gastrointestinal: Negative Genitourinary: Negative Musculoskeletal: + b/L knee pain Neurologic: +headache Psychiatric: Negative Skin/Breast: Abrasion over L eyebrow, skin tear over L dorsal hand Endocrine: Negative Rheumatologic: Negative Allergic/Immunologic: Negative Significant positives: B/L knee pain, abrasion to L eyebrow, skin tear L hand BASIC LABS Results for orders placed or performed during the hospital encounter of 07/29/23 LACTIC ACID Result Value Ref Range Lactate 1.3 0.5 - 1.6 mmol/L TYPE AND SCREEN Result Value Ref Range ABO Rh Type A Positive CBC WITH DIFFERENTIAL Result Value Ref Range WBC 8.9 4.5 - 11.5 K/uL RBC 3.93 (L) 4.00 - 5.20 M/uL Hemoglobin 12.0 12.0 - 15.0 g/dL Hematocrit 35.7 (L) 36.0 - 46.0 % MCV 91 80 - 100 fL MCH 30.6 26.0 - 34.0 pg MCHC 33.6 32.0 - 35.9 g/dL Platelet 214 150 - 400 K/uL RDW-CV 14.3 11.5 - 14.5 % MPV 6.9 (L) 7.5 - 11.2 fL Neutrophils 82.2 (H) 31.0 - 76.0 % Neutrophil # 7.35 1.50 - 8.00 K/uL Lymphocytes 10.2 (L) 24.0 - 44.0 % Lymphocytes # 0.91 (L) 1.00 - 4.80 K/uL Monocytes 5.5 2.0 - 11.0 % Monocyte # 0.50 0.20 - 1.00 K/uL Eosinophil 1.4 0.1 - 4.0 % Eosinophil # 0.12 0.00 - 0.70 K/uL Basophils 0.7 <=1.9 % Basophil # 0.06 0.00 - 0.20 K/uL MDW 17 <=20 RADIOLOGY: CT head (read from enrrique romero): L frontal/parietal/temporal SDH with mass effect and midline shift Patient also had XR L hip, R knee, CT C/A/P, C/T/L spines- negative except for 1.5mm L nasal septumdeviation per Dr. Cisneros at . ASSESSMENT: Carly Marcelino is a 83 year old female presenting to from OSH following a fall this morning at [employer]. Workup revealed SDH, skin tear to L hand and abrasion to forehead. NSGY consulted. Admit to TICU for further care INJURIES: 11mm L SDH with 4mm midline shift Nasal septum deviation- face, NTD PLAN: - admit to TICU Neurologic: Acute pain d/t trauma. L SDH- NSGY consulted - q1h NC - rCTH @ 1600 (ordered) - Keppra 750mg BID x7d - Tylenol 650mg q6h - Oxycodone 2.5g q4h prn moderate-severe pain - INSPECTOR CHIEF consult for cog eval Cardiovascular: no current cardiac issues - clarify patient home meds - hold home asa for now Respiratory: - Continue pulmonary toilet, encourage IS GI/Diet: - NPO - senna, prn dulcolax Renal/Electrolytes: - No IVF at this time - BMP tomorrow Heme: - No indication for transfusion - daily cbc ID: - No indication for abx - update tetanus Endocrine: - No glycemic issues MSK: R knee contusion - PT/OT consulted, recs appreciated as able - Progressive mobility procedure - WBAT to all extremities - Spines cleared PPX: - SCDs only for now in setting of TBI - No need for GI ppx Tubes/Lines/Drains - Maintain PIVs Tertiary: None indicated Final ED disposition: ICU Does patient have a traumatic brain injury? YES INITIAL TRIAGE OF TRAUMATIC BRAIN INJURY USING BRAIN INJURY GUIDELINES (BIG) For patients ? [address] evidence of Traumatic Brain Injury (EDH, SDH, SAH, Contusion, IPH, or IVH): Variables BIG-1 BIG-2 BIG-3 Mechanism of Injury Blunt Blunt Blunt or Penetrating GCS 14-15 12-13 <12 Intoxication No No or Yes No or Yes Prehospital Anticoagulant or Antiplatelet use No ASA only Any AC/AP excluding ASA Head CT Findings Skull Fracture No Nondisplaced Displaced SDH ?4mm 5-7mm ?8mm EDH ?4mm 5-7mm ?8mm IPH ?4mm, 1 location 5-7mm, 2 locations ?8mm, multiple locations SAH Trace Localized Scattered IVH No No Yes MLS No No Yes *Adopted from: Marcos Unger et al. (2017). Safety and Efficacy of Brain Injury Guidelines at a Level III Trauma Center. J Trauma Acute Care Surg. Vol (84)3, 483-489. Shon. Mike et al. (2021). Validating the Brain Injury Guidelines: Results of an [place] [employer] of Trauma prospective multi-institutional trial. J Trauma Acute Care Surg. 2021;93(2):157-165. BIG Score: BIG 1 - with SDH (neurosurgery to be consulted) Patient discussed with Attending Trauma Surgeon, Dr. Molina . Vickie Hummel PA-C ] Split/Shared Documentation I approve the management plan for this patient and take responsibility for the plan as documented. Independent Interpretation of Tests Performed by Another Physician/ASH: I personally performed, reviewed, and interpreted CT head with findings of SDH. Discussion of Management or Test Interpretation with External Physician/ASH: I personally performedand discussed the management of case or test interpretation with software consultant neurosurgery with findings of SDH. Nahid Molina MD [employer] Work Phone: [phone]) 314-327905-19-2024 History and physical note* Nahid Molina MD - 07/29/2023 1:39 PM EDT Images from the original note were not included. [facility] Department of Surgery Division of Trauma Surgery, Acute Care Surgery, Critical Care, and Gregory TRAUMA SURGERY HISTORY AND PHYSICAL Carly Marcelino [id number] BASIC INJURY INFORMATION: Level of activation: Category 2 Trauma Mode of transport: Advance life support Mechanism of injury: Fall from ground level Complicating features: Not applicable Protective measures: Not applicable Date of Injury: 07/29/2023 Time of Injury: morning Patient origin: Transfer from outside facility HISTORY OF PRESENT INJURY: Carly Marcelino is a 83 year old female brought in as transfer from [facility] following a fall while walking into [employer] this morning. She was found at the OSH to have ICH with midline shift for which she was transferred to . + ASA, prior history of AC which was d/c d/t prior SAH Loss of consciousness: No Initial interventions: None Hemodynamic status in ED: None applicable PRIMARY SURVEY: Airway: Intact Breathing: Normal Breath Sounds: Breath sounds equal bilaterally. Circulation: Pulses: Normal Skin: Warm and Dry Disability: Pupils: PERRL GCS: Best Eyes: 4 Best Verbal: 5 Best Motor: 6 Total: 15 SECONDARY SURVEY: BP 138/92 Pulse 61 Temp 97.9 F (36.6 C) (Oral) Resp 9 SpO2 98% Neurologic: Alert and oriented, appropriate, moves all extremities. Strength symmetrical, no sensory deficits. HEENT: Head: Abrasion over L eyebrow, frontal cephalohematoma Eyes: PERRL Ears: No hemotympanum Nose: No bloody drainage. Throat: Oral cavity without trauma. Neck: No midline tenderness, lacerations, or wounds Chest: No crepitus or pain with palpation; no abrasions or contusions; no gross deformities Pulmonary: Breath sounds clear, symmetrical; no wheezes, rales, or consolidation Cardiovascular: Pulses: Bilateral radial, femoral, DP and PT pulses are normal. Abdomen: Non-distended; non-tender to palpation; no scars, lacerations, or contusions Rectal: Not performed. Pelvis/Perineum: Pelvis is stable to palpation Musculoskeletal: Back/Spine: Thoracolumbar spinal column non-tender Extremities: Tenderness to L hip, no loss of ROM, L knee with ecchymosis noted, R knee with tenderness, ecchymosis and swelling, pain limits ROM. BUE without gross deformity, skin tear over dorsal L hand and abrasions to dorsal R hand. Additional exam findings: None PAST MEDICAL HISTORY: Arthritis, asthma, chronic anemia, CAD (s/p NSTEMI 2021), GERD, HTN, pulmonary hypertension, morbidobesity, seizure disorder, seasonal allergies, cerebral amyloid angiopathy, prior SAH, DVT (no longer on eliquis) PAST SURGICAL HISTORY: PCI (2021) Eye surgery, b/L knee surgery, b/L shoulder surgery, PRE-ADMISSION MEDICATIONS: (per care everywhere) Albuterol prn Aspirin 81mg daily Baclofen 5mg at bedtime Pepcid 40mg daily Ferrous sulfate 325mg daily Fish oil Gabapentin 300mg TID Keppra 500mg at bedtime Losartan 50mg daily Mag oxide 12.5mg BID Montelukast 10mg daily MVI Zyrtec 10mg prn Anti-platelet use: Yes: Aspirin 81mg daily Anti-coagulant use: No ALLERGIES: Labetalol, depakote, dilantin, norvasc, procardia, tegretol, hydrochlorothiazide (per care everywhere) SOCIAL HISTORY: Prior smoker (quit >30 years ago) Living status: Unknown Primary language: Unknown Functional status: Unknown Impairments: Unknown Assistive Devices Used: Unknown FAMILY HISTORY: Hx of cancer in mother and brother REVIEW OF SYSTEMS: Constitutional: Negative Eyes: Negative Ears/Nose/Mouth/Throat: Negative Respiratory: Negative Cardiovascular: Negative Gastrointestinal: Negative Genitourinary: Negative Musculoskeletal: + b/L knee pain Neurologic: +headache Psychiatric: Negative Skin/Breast: Abrasion over L eyebrow, skin tear over L dorsal hand Endocrine: Negative Rheumatologic: Negative Allergic/Immunologic: Negative Significant positives: B/L knee pain, abrasion to L eyebrow, skin tear L hand BASIC LABS Results for orders placed or performed during the hospital encounter of 07/29/23 LACTIC ACID Result Value Ref Range Lactate 1.3 0.5 - 1.6 mmol/L TYPE AND SCREEN Result Value Ref Range ABO Rh Type A Positive CBC WITH DIFFERENTIAL Result Value Ref Range WBC 8.9 4.5 - 11.5 K/uL RBC 3.93 (L) 4.00 - 5.20 M/uL Hemoglobin 12.0 12.0 - 15.0 g/dL Hematocrit 35.7 (L) 36.0 - 46.0 % MCV 91 80 - 100 fL MCH 30.6 26.0 - 34.0 pg MCHC 33.6 32.0 - 35.9 g/dL Platelet 214 150 - 400 K/uL RDW-CV 14.3 11.5 - 14.5 % MPV 6.9 (L) 7.5 - 11.2 fL Neutrophils 82.2 (H) 31.0 - 76.0 % Neutrophil # 7.35 1.50 - 8.00 K/uL Lymphocytes 10.2 (L) 24.0 - 44.0 % Lymphocytes # 0.91 (L) 1.00 - 4.80 K/uL Monocytes 5.5 2.0 - 11.0 % Monocyte # 0.50 0.20 - 1.00 K/uL Eosinophil 1.4 0.1 - 4.0 % Eosinophil # 0.12 0.00 - 0.70 K/uL Basophils 0.7 <=1.9 % Basophil # 0.06 0.00 - 0.20 K/uL MDW 17 <=20 RADIOLOGY: CT head (read from enrrique romero): L frontal/parietal/temporal SDH with mass effect and midline shift Patient also had XR L hip, R knee, CT C/A/P, C/T/L spines- negative except for 1.5mm L nasal septumdeviation per Dr. Cisneros at . ASSESSMENT: Carly Marcelino is a 83 year old female presenting to from OSH following a fall this morning at [employer]. Workup revealed SDH, skin tear to L hand and abrasion to forehead. NSGY consulted. Admit to TICU for further care INJURIES: 11mm L SDH with 4mm midline shift Nasal septum deviation- face, NTD PLAN: - admit to TICU Neurologic: Acute pain d/t trauma. L SDH- NSGY consulted - q1h NC - rCTH @ 1600 (ordered) - Keppra 750mg BID x7d - Tylenol 650mg q6h - Oxycodone 2.5g q4h prn moderate-severe pain - INSPECTOR CHIEF consult for cog eval Cardiovascular: no current cardiac issues - clarify patient home meds - hold home asa for now Respiratory: - Continue pulmonary toilet, encourage IS GI/Diet: - NPO - senna, prn dulcolax Renal/Electrolytes: - No IVF at this time - BMP tomorrow Heme: - No indication for transfusion - daily cbc ID: - No indication for abx - update tetanus Endocrine: - No glycemic issues MSK: R knee contusion - PT/OT consulted, recs appreciated as able - Progressive mobility procedure - WBAT to all extremities - Spines cleared PPX: - SCDs only for now in setting of TBI - No need for GI ppx Tubes/Lines/Drains - Maintain PIVs Tertiary: None indicated Final ED disposition: ICU Does patient have a traumatic brain injury? YES INITIAL TRIAGE OF TRAUMATIC BRAIN INJURY USING BRAIN INJURY GUIDELINES (BIG) For patients ? [address] evidence of Traumatic Brain Injury (EDH, SDH, SAH, Contusion, IPH, or IVH): Variables BIG-1 BIG-2 BIG-3 Mechanism of Injury Blunt Blunt Blunt or Penetrating GCS 14-15 12-13 <12 Intoxication No No or Yes No or Yes Prehospital Anticoagulant or Antiplatelet use No ASA only Any AC/AP excluding ASA Head CT Findings Skull Fracture No Nondisplaced Displaced SDH ?4mm 5-7mm ?8mm EDH ?4mm 5-7mm ?8mm IPH ?4mm, 1 location 5-7mm, 2 locations ?8mm, multiple locations SAH Trace Localized Scattered IVH No No Yes MLS No No Yes *Adopted from: Marcos Unger et al. (2017). Safety and Efficacy of Brain Injury Guidelines at a Level III Trauma Center. J Trauma Acute Care Surg. Vol (84)3, 483-489. Micky Mckeon et al. (2021). Validating the Brain Injury Guidelines: Results of an [place] [employer] of Trauma prospective multi-institutional trial. J Trauma Acute Care Surg. 2021;93(2):157-165. BIG Score: BIG 1 - with SDH (neurosurgery to be consulted) Patient discussed with Attending Trauma Surgeon, Dr. Molina . Vickie Hummel PA-C ] Split/Shared Documentation I approve the management plan for this patient and take responsibility for the plan as documented. Independent Interpretation of Tests Performed by Another Physician/ASH: I personally performed, reviewed, and interpreted CT head with findings of SDH. Discussion of Management or Test Interpretation with External Physician/ASH: I personally performedand discussed the management of case or test interpretation with software consultant neurosurgery with findings of SDH. Nahid Molina MD documented in this [id number] Emergency department Triage note* Carlie Jamison RN - 07/29/2023 1:38 PM EDT Prehospital Medications: 50 mcg fentanyl [id number] Emergency department Triage note* Carlie Jamison RN - 07/29/2023 1:38 PM EDT Mechanical fall walking into [employer] today, head lac with subdural hematoma [id number] Physician Emergency department Note* Janny Perez MD - 07/29/2023 1:35 PM EDT Fall with ICH and 4 mm midline shift Critical Care Provider Statement Critical care time was provided for 35 minutes by the attending physician. The time involved in theperformance of this care was exclusive of separately billable procedures, teaching time and treating other patients. Critical care was necessary because of an illness or injury that acutely impaired one or more vitalorgans systems such that there was a high probability of imminent or life threatening deteriorationin the patient s condition. The critical illness/injury acutely impaired the following organ systems: Central Nervous Critical care was time was spent personally by me on the following activities: obtaining history from patient, obtaining history from family / other source, examination of patient, ordering and/or performing treatments and / or interventions, re-evaluations of patient condition / response to treatment, ordering and review of radiographic studies, discussions with consultants and / or primary provider, and review of old charts JANNY IGLESIAS MD ATTENDING NOTE I saw and evaluated the patient. I personally obtained the kuo and critical portions of the historyand physical exam. I reviewed the resident's documentation and discussed the patient with the resident. I agree with the resident's medical decision making as documented in the resident's note. JANNY IGLESIAS MD [employer] Work Phone: 1(263) 785-819105-04-2024 NoteDr. Ashley requesting social work referral to help with home medications. Ambreen from social work contacted- setting up [facility] Hospital Discharge instructions Patient Education 07/13/2023 22:48:16 Weakness Weakness Weakness is a lack of strength. You may feel weak all over your body (generalized), or you may feelweak in one part of your body (focal). Common causes of weakness include: Infection and disorders of the body's defense system (immune system). Physical exhaustion. Internal bleeding or other blood loss that results in a lack of red blood cells (anemia). Dehydration. An imbalance in mineral (electrolyte) levels, such as potassium. Chronic kidney or liver disease. Cancer. Other causes include: Some medicines or cancer treatment. Stress, anxiety, or depression. Heart disease, circulation problems, or stroke. Nervous system disorders. Thyroid disorders. Loss of muscle strength because of age or inactivity. Poor sleep quality or sleep disorders. The cause of your weakness may not be known. Some causes of weakness can be serious, so it is important to see your health care provider. Follow these instructions at home: Activity Rest as needed. Try to get enough sleep. Most adults need 7 8 hours of quality sleep each night. Talk to your health care provider about how much sleep you need. Do exercises, such as arm curls and leg raises, for 30 minutes at least 2 days a week or as told byyour health care provider. This helps build muscle strength. Consider working with a physical therapist or marine mammal trainer who can develop an exercise plan to help you gain muscle strength. General instructions Take qiqk-ibv-vhuanax and prescription medicines only as told by your health care provider. Eat a healthy, well-balanced diet. This includes: ?Proteins to build muscles, such as lean meats and fish. ?Fresh fruits and vegetables. ?Carbohydrates to boost energy, such as whole grains. Drink enough fluid to keep your urine pale yellow. Keep all follow-up visits. This is important. Contact a health care provider if: Your weakness does not improve or gets worse. Your weakness affects your ability to think clearly. Your weakness affects your ability to do your normal daily activities. Get help right away if: You develop sudden weakness, especially on one side of your face or body. You have chest pain. You have trouble breathing or shortness of breath. You have problems with your vision. You have trouble talking or swallowing. You have trouble standing or walking. You are light-headed or lose consciousness. These symptoms may be an emergency. Get help right away. Call 911. Do not wait to see if the symptoms will go away. Do not drive yourself to the hospital. Summary Weakness is a lack of strength. You may feel weak all over your body or just in one specific part of your body. Weakness can be caused by a variety of things. In some cases, the cause may be unknown. Rest as needed, and try to get enough sleep. Most adults need 7 8 hours of quality sleep each night. Eat a healthy, well-balanced diet. This information is not intended to replace advice given to you by your health care provider. Make sure you discuss any questions you have with your health care provider. Document Revised: 01/29/2022 Document Reviewed: 01/29/2022 [employer] Patient Education 2022 [employer]. Follow Up Care 07/13/2023 17:30:35 With:HARDEEP MCKENZIE Address: [facility] TALISHA SILVA [address] [address] [facility] (1) When:07/16/2023 Comments:Our social services specialist will contact you for a home visiting nurse. Make sure to follow-up with your primary doctor as needed. Return to the emergency room if you develop any symptoms or concerns. [facility]05-03-2024 Evaluation + Plan noteExtracted from: Title:ED Note Author:Hank Beard DO Date:07/12 Weakness (R53.1: Weakness) Orders: Basic Metabolic Panel CBC w/ Auto Diff eGFR Troponin UA with Cult Rflx Addendum by Ashley Mera, As triminoo on July 14, 2023 01:18:38 EDT The care of the patient was transitioned to wa upon shift change to follow-up with blood work discussion with patient's family and final disposition. The patient was seen by me. She states that she has been confused about her medication changing frequently and she is not sure if she took her doxycycline tonight. The patient's brother came to the emergency room and he states that if he had a spreadsheet of her recent change of medications he is more than happy to make a pillbox for the patient and make sure that she takes the medication as she is supposed to. The patient states she feels confused because they have changed her medications so much recently. She denies any complaint to me. The patient's brother feel comfortable with patient going home and he will make sure that she takes the medication as she is supposed to. I offered to the patient and her brother for the social services specialist to call her tomorrow to see if they can arrange home visiting nurse for evaluation of her medication and education. They both felt comfortable with the idea of getting a home visiting nurse for education for her meds and they feel comfortable that patient go home. Future Scheduled Tests Laboratory* Basic Metabolic Panel 07/18/23 [facility] NoteMedina HospitalComment on above:Result Comment: Electronically Signed By: Lima ROSAS CNP\.br\Date and Time Signed: 07/12/23 11:26 EDT\.br\Electronically Co-Signed By: Mickie Falcon MD\.br\Date and Time Co-Signed: 07/13/23 11:09 [id number] Hospital Discharge instructions Patient Education 07/11/2023 13:43:41 Hyponatremia, Qltz-[id number] Hyponatremia Hyponatremia is when the amount of salt (sodium) in your blood is too low. When salt levels are low, your body cells may take in extra water. This can cause swelling. The swelling often affects the brain. What are the causes? Certain medical problems or conditions. Vomiting a lot. Having watery poop (diarrhea) often. Sweating too much. Taking certain medicines or using illegal drugs. Fluids given through an IV tube. What increases the risk? Having heart, kidney, or liver failure. Having a medical condition that causes you to have watery poop a lot. Doing very hard exercises. Taking medicines that affect the amount of salt that is in your blood. What are the signs or symptoms? Symptoms of this condition include: Headache. Feeling like you may vomit (nausea). Vomiting. Being very tired. Muscle weakness and cramps. Not wanting to eat as much as normal. Feeling weak or dizzy. Very bad symptoms of this condition include: Confusion. Feeling restless. Having a fast heart rate. Fainting. Seizures. Coma. How is this treated? Treatment for this condition depends on the cause. Treatment may include: Getting fluids through an IV tube that is put into one of your veins. Taking medicines to fix the salt levels in your blood. If medicines are causing the problem, your medicines will need to be changed. Limiting how much water or fluid you take in, in some cases. Monitoring in the hospital to watch your symptoms. Follow these instructions at home: Take bxam-qwc-ljidzmb and prescription medicines only as told by your doctor. Many medicines can make this condition worse. Talk with your doctor about any medicines that you are taking. Do not drink alcohol. Keep all follow-up visits. Contact a doctor if: You feel more like you may vomit. You feel more tired. Your headache gets worse. You feel more confused. You feel weaker. Your symptoms go away and then they come back. Get help right away if: You have a seizure. You faint. You keep having watery poop. You keep vomiting. Summary Hyponatremia is when the amount of salt in your blood is too low. When salt levels are low, you can have swelling throughout the body. The swelling mostly affects the brain. Treatment depends on the cause. Treatment may include IV fluids and changing medicines. This information is not intended to replace advice given to you by your health care provider. Make sure you discuss any questions you have with your health care provider. Document Revised: 09/06/2021 Document Reviewed: 09/06/2021 [employer] Patient Education 2022 [employer]. Follow Up Care 07/08/2023 21:50:17 With:HARDEEP MCKENZIE DO, FAM Address: [address] [place] [id number] When:3 to 5 days Comments:Get BMP in 1 weekCall for followup appointment [facility]04-30-2024 Evaluation + Plan noteExtracted from: Title:Hyponatremia Progress Note Author:Andrea Norris NP, Pina Tran Date:07/10/23 Impression and Plan 1. Hyponatremia likely due to hydrochlorothiazide with concurrent exposure to excessive fluid intake compared to solute intake. -Patient reports in the past she has had electrolyte issues with diuretic therapy. List HCTZ as allergy to minimize chances she will be restarted on this medication. -Hydrochlorothiazide discontinued on admission. -Sodium kenneth 117. Now 122. Encouraged protein fortified diet and solute intake. NS 250 mL IV bolus given. FR 1.5L. -TSH unremarkable -Serial sodium levels are ordered and parameters are given on when to call us. Repeat urine osmo & urine Na. 2. HTN -Will increase Losartan to 50 mg daily. Extracted from: Title:APSO Note Author:RALPH LANE Lima Alex Date: 07/10/23 1. Hyponatremia (E87.1: Hypo-osmolality and hyponatremia) Acute on chronic hyponatremia. Likely secondary to hydrochlorothiazide with concurrent exposure to excessive fluid intake compared to solute intake No further HCTZ (added as allergy) continue to hold other diuretics right now. Na 123 -> 122 today, IVF DC'd am of 07/08 Nephrology following 2. Acute URI (J06.9: Acute upper respiratory infection, unspecified) Likely viral. COVID, Influenza negative, Resp Panel -> negative CXR negative. CT Chest negative Augmentin changed to Doxy given PCP concern for prolonged tick exposure Albuterol QID, Mucinex, Tessalon perles 3. Chronic diastolic heart failure (I50.32: Chronic diastolic (congestive) heart failure) Echo 11/24/21: Normal LV function, Stage 1 diastolic dysfunction, mild PAH Not decompensated 4. HTN (I10: Essential (primary) hypertension) -Losartan, Metoprolol -Holding HCTZ, Triamterene, Aldactone -BP stable 5. CAD (coronary artery disease) (I25.10: Atherosclerotic heart disease of [place] coronary artery without angina pectoris) -Reports a hx MS 2 years ago -ASA 81 mg daily, beta rudi 6. Seizure disorder (R56.9: Unspecified convulsions) [facility] 7. Anxiety (F41.9: Anxiety disorder, unspecified) - PRN ativan Orders: benzonatate, 200 mg = 2 cap(s), Cap, Oral, TID PRN Cough, Routine, Start date 07/10/23 11:38:00 EDT, 07/10/23 11:38:00 EDT doxycycline, 100 mg = 1 cap(s), Cap, Oral, BID for 10 day(s), Stop date 07/19/23 20:59:00 EDT, Routine, Start date 07/09/23 21:00:00 EDT, 07/09/23 12:39:00 EDT gabapentin, 300 mg = 1 cap(s), Cap, Oral, TID, NOW, Start date 07/09/23 14:44:00 EDT, 07/09/23 14:44:00 EDT guaifenesin, 1,200 mg = 2 tab(s), Tab-ER, Oral, BID, Routine, Start date 07/10/23 21:00:00 EDT, 07/10/23 11:38:00 EDT Extracted from: Title:Nephrology consultation note Author:Dyan Wen MD Date:07/09/23 Impression and Plan 1. Hyponatremia: Likely due to hydrochlorothiazide with concurrent exposure to excessive fluid intake compared to solute intake. -Patient reports in the past she has had electrolyte issues with diuretic therapy. List HCTZ as allergy to minimize chances patient will be restarted on this medication -Hydrochlorothiazide discontinued on admission. -Sodium kenneth 117. Now 123. No need for fluid restriction at this time. Encouraged protein fortified diet and solute intake. -TSH unremarkable -Serial sodium levels are ordered and parameters are given on when to call us. 2. HTN -increase losartan if BP above goal. Extracted from: Title:Admission H & P Author:Alejandra Summers MD Date:07/09/23 1. Hyponatremia (E87.1: Hypo -osmolality and hyponatremia) Acute on chronic hyponatremia. Likely induced by recent addition of Aldactone to medication regimen, in conjunction with already being on HCTZ/Triamterence since Apr No further HCTZ or diuretics right now. NS at 75 cc/hr with Serum Na checks q4hrs Check urine studies Nephrology consultation 2. Acute URI (J06.9: Acute upper respiratory infection, unspecified) Likely viral. COVID, Influenza negative. Check Resp Panel CXR negative. Ordered CT Chest. Continue Augmentin ordered by PCP. Albuterol QID Patient endorses hx asthma. Would benefit from an Albuterol inhaler on discharge as well as outpatient PFTs 3. Chronic diastolic heart failure (I50.32: Chronic diastolic (congestive) heart failure) Currently not decompensated. Echo 11/24/21: Normal LV function, Stage 1 diastolic dysfunction, mild PAH 4. HTN (I10: Essential (primary) hypertension) Losartan, Metoprolol Holding HCTZ, Triamterene, Aldactone 5. CAD (coronary artery disease) (I25.10: Atherosclerotic heart disease of [place] coronary artery without angina pectoris) Reports a hx MS 2 years ago 6. Seizure disorder (R56.9: Unspecified convulsions) [facility] 7. Anxiety (F41.9: Anxiety disorder, unspecified) Under considerable stress since Apr (see HPI) Not sleeping well. Responded to Ativan given in ED. Extracted from: Title:ED Note Author:Benton Sutherland DO Date :07/08/23 Acute URI (J06.9: Acute uppe r respiratory infection, unspecified) Hyponatremia (E87.1: Hypo-osmolality and hyponatremia) Orders: albuterol, 180 mcg, 2 puff(s), Aerosol, Inhalation, q6hr PRN Shortness of breath or wheezing, STAT, Start date 07/08/23 23:23:00 EDT, teach and treat only albuterol, 2.5 mg, 3 mL, Soln-Inh, NEB, Once, Stop date 07/08/23 22:20:00 EDT, STAT, Start date 07/08/23 22:20:00 EDT lorazepam, 0.5 mg = 1 tab(s), Tab, Oral, Once, Stop date 07/09/23 0:44:00 EDT, STAT, Start date 07/09/23 0:44:00 EDT, 07/09/23 0:44:00 EDT B-Type Natriuretic Peptide Basic Metabolic Panel CBC w/ Auto Diff ECG 12 Lead Adult ED Cardiac Monitoring eGFR Influenza A&B Ag Oxygen Saturation PT & PTT Rapid COVID Antigen ([facility]) Saline Lock Insert Troponin 0 Hr. XR Chest Single View Future Scheduled Tests Laboratory* Basic Metabolic Panel 07/18/23 [facility]04-29-[facility]24 [facility]Fisher [facility] HospitalComment on above:Result Comment: Electronically Signed By: Melina VICTOR, Alejandra\.br\Date and Time Signed: 07/09/23 03:31 [id number] NoteHNO ID: [id number] Author: DELFIN DOW APRN.DOMINGO Service: ? Author Type: Nurse Practitioner Type: Progress Notes Filed: 07/06/2023 15:06 Note Text: [facility] Established Visit Consultation is requested by: No referring provider defined for this encounter. PCP: Hardeep Scanlon [address] [place] [address] CEREBROVASCULAR HISTORY Carly Marcelino is a 82 year old right-handed female. 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 Neurology was consulted and after discussion with vascular medicine the decision was made to continue patient off anticoagulation and start ASA 81. Patient was monitored with EEG, which showed no seizures but was significant for PLEDS. Therefore, patient was continued on keppra with plan for PASS clinic follow up. Patient was fitted with fitted with sequential compression devices and used Heparin for DVT prophylaxis. The patient was discharged on 05/07/2023 in stable condition. Complete and comprehensive discharge instructions were provided to the patient as well as necessary prescriptions. The patient had no further questions and was advised to call with any questions, concerns, or problems. Patient's pain was well controlled with Oral Pain Medications. Physical Therapy was started on 05/04/2023. Patient progressed satisfactorily through physical therapy until discharge. Based upon the appropriate milestones the patient met during the hospital course, Physical Therapy recommended patient be discharged to [facility]- discharged home. Patient was hemodynamically stable postoperatively. 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 Will continue monotherapy with Aspirin Request images from ED visits at [facility] Reports she has been having anxiety attacks She states she has unusual thoughts. Specifically nightmares. She wakes up thinking that she's is dying. She states she does have this during the day sometimes as well. She felt that this has been since the Keppra was started Following with Epilepsy, no recommendations to stop AEDs at this time. [address] Discussed journaling and keeping daily schedule to help manage anxiety. PAST MEDICAL HISTORY Diagnosis Date Arterial aneurysm (HCC) left eye Asthma rare use of albuterol, controled with zafirlukast, advair Bilateral shoulder injury before 1999 working in [employer] home Cataract of left eye Cataracts, bilateral HTN (hypertension) Hyperlipidemia Lung nodule 06/2015 Macular degeneration DESTINY (obstructive sleep apnea) s/p pharyngoplasty no cpap Pseudophakia of right eye PAST SURGICAL HISTORY Procedure Laterality Date ARTHRP KNE CONDYLEANDPLATU MEDIALANDLAT COMPARTMENTS 2004 bilateral kneee EXCISION CHE NEUROMA EACH x3 PAST SURGICAL HISTORY OF 1967,93 breast bx PAST SURGICAL HISTORY OF 2000 L3-5 laminectomy PAST SURGICAL HISTORY OF bilateral heal spurs PAST SURGICAL HISTORY OF Left 01/20/15 left total reverse shoulder surgery PAST SURGICAL HISTORY OF Right 09/29/15 right total reverse shoulder surgery PHARYNGOPLASTY (RECONSTRUCTION PHARYNX) 2002 d/t DESTINY REMV CATARACT EXTRACAP,INSERT LENS Right SCREENING COLONSCOPY NOT HIGH RISK 2011 TONSILLECTOMY HX 2003 TRABECULOPLASTY BY LASER SURGERY 2003 correction of arterial hemmorhage left eye FAMILY HISTORY Problem Relation Age of Onset Breast Cancer Mother with mets Cataract Mother Cancer Father prostate with bone mets Cataract Father Cancer Brother colon; survivor x 10 yrs thus far. doing well Cataract Brother No Ocular Disease No Family History nothing known of Social History Tobacco Use Smoking status: Former Packs/day: 0.50 Years: 10.00 Additional pack years: 0.00 Total pack years: 5.00 Types: Cigarettes Quit date: 1976 Years since quittin.3 Smokeless tobacco: Never Vaping Use Vaping Use: Never used Substance Use Topics Alcohol use: Yes Comment: socially wine, beer Drug use: No Comment: denies tx for drug/alcohol abuse in the past. MEDICATIONS Current Outpatient Medications Medication Sig spironolactone (ALDACTONE) 25 mg tablet Take 1 tablet by mouth every afternoon. levETIRAcetam XR (KEPPRA XR) 500 mg 24 hr tablet Take 1 tablet by mouth daily at bedtime. albuterol HFA (PROVENTIL HFA, VENTOLIN HFA) 90 mcg/actuation inhaler Inhale 2 Puffs as instructed every 4 hours as needed. ALPRAZolam (X (more content not included)...[facility]04-26-2024 Instructions* Patient Instructions* Delfin Dow APRN.CNP - 07/06/2023 1:56 PM EDT Continue Aspirin. 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 Will continue to monitor while patient is on Aspirin. Continue Pravastatin for secondary stroke prevention and LDL goal below 70. Continue monitoring blood pressure for goal below 130/80. MRI brain in 3-6 months (end of July). Follow up to review results. [facility] History of Present illness Narrative* Delfin Dow APRN.CNP - 07/06/2023 1:05 PM EDT [facility] Established Visit Consultation is requested by: No referring provider defined for this encounter. PCP: Hardeep Mckenzie [address] [place] [id number] CEREBROVASCULAR HISTORY Carly Marcelino is a 82 year old right-handed female. Stroke Event Information Admitted to [facility] 05/03/23-05/07/23 The patient was transferred from an outside hospital to the [facility] with right frontal cortical SAH (eliquis reversed with FEIBA). 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 Neurology was consulted and after discussion with vascular medicine the decision was made to continue patient off anticoagulation and start ASA 81. Patient was monitored with EEG, which showed no seizures but was significant for PLEDS. Therefore, patient was continued on keppra with plan for PASS clinic follow up. Patient was fitted with fitted with sequential compression devices and used Heparin for DVT prophylaxis. The patient was discharged on 05/07/2023 in stable condition. Complete and comprehensive discharge instructions were provided to the patient as well as necessary prescriptions. The patient had no further questions and was advised to call with any questions, concerns, or problems. Patient's pain was well controlled with Oral Pain Medications. Physical Therapy was started on 05/04/2023. Patient progressed satisfactorily through physical therapy until discharge. Based upon the appropriate milestones the patient met during the hospital course, Physical Therapy recommended patient be discharged to [facility]- discharged home. Patient was hemodynamically stable postoperatively. 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 Will continue monotherapy with Aspirin Request images from ED visits at [facility] Reports she has been having anxiety attacks She states she has unusual thoughts. Specifically nightmares. She wakes up thinking that she's is dying. She states she does have this during the day sometimes as well. She felt that this has been since the Keppra was started Following with Epilepsy, no recommendations to stop AEDs at this time. [address] Discussed journaling and keeping daily schedule to help manage anxiety. PAST MEDICAL HISTORY Diagnosis Date Arterial aneurysm (HCC) left eye Asthma rare use of albuterol, controled with zafirlukast, advair Bilateral shoulder injury before 1999 working in [employer] home Cataract of left eye Cataracts, bilateral HTN (hypertension) Hyperlipidemia Lung nodule 06/2015 Macular degeneration DESTINY (obstructive sleep apnea) s/p pharyngoplasty no cpap Pseudophakia of right eye PAST SURGICAL HISTORY Procedure Laterality Date ARTHRP KNE CONDYLE&PLATU MEDIAL&LAT COMPARTMENTS 2004 bilateral kneee EXCISION CHE NEUROMA EACH x3 PAST SURGICAL HISTORY OF 1967, breast bx PAST SURGICAL HISTORY OF 2000 L3-5 laminectomy PAST SURGICAL HISTORY OF bilateral heal spurs PAST SURGICAL HISTORY OF Left 01/20/15 left total reverse shoulder surgery PAST SURGICAL HISTORY OF Right 09/29/15 right total reverse shoulder surgery PHARYNGOPLASTY (RECONSTRUCTION PHARYNX) 2002 d/t DESTINY REMV CATARACT EXTRACAP,INSERT LENS Right SCREENING COLONSCOPY NOT HIGH RISK 2010 TONSILLECTOMY HX 2003 TRABECULOPLASTY BY LASER SURGERY 2003 correction of arterial hemmorhage left eye FAMILY HISTORY Problem Relation Age of Onset Breast Cancer Mother with mets Cataract Mother Cancer Father prostate with bone mets Cataract Father Cancer Brother colon; survivor x 10 yrs thus far. doing well Cataract Brother No Ocular Disease No Family History nothing known of Social History Tobacco Use Smoking status: Former Packs/day: 0.50 Years: 10.00 Additional pack years: 0.00 Total pack years: 5.00 Types: Cigarettes Quit date: 1977 Years since quittin.3 Smokeless tobacco: Never Vaping Use Vaping Use: Never used Substance Use Topics Alcohol use: Yes Comment: socially wine, beer Drug use: No Comment: denies tx for drug/alcohol abuse in the past. MEDICATIONS Current Outpatient Medications Medication Sig spironolactone (ALDACTONE) 25 mg tablet Take 1 tablet by mouth every afternoon. levETIRAcetam XR (KEPPRA XR) 500 mg 24 hr tablet Take 1 tablet by mouth daily at bedtime. albuterol HFA (PROVENTIL HFA, VENTOLIN HFA) 90 mcg/actuation inhaler Inhale 2 Puffs as instructed every 4 hours as needed. ALPRAZolam (XANAX) 0.25 mg tablet Take 1 tablet by mouth every 12 hours. atorvastatin (LIPITOR) 80 mg tablet Take 80 mg by mouth. (Patient not taking: Reported on 06/29/2023) clopidogrel (PLAVIX) 75 mg tablet Take 75 mg by mouth. (Patient not taking: Reported on 06/29/2023) DOCOSAHEXAENOIC ACID ORAL Take 1 capsule by mouth once daily. ferrous sulfate 325 mg (65 mg iron) tablet Take 325 mg by mouth. metoprolol succinate ER (TOPROL XL) 50 mg 24 hr tablet (Patient not taking: Reported on 06/29/2023) nitroglycerin sublingual (NITROQUICK) 0.4 mg SL tablet DISSOLVE 1 TABLET UNDER THE TONGUE NEEDEDFOR CHEST PAIN- MAY REPEAT EVERY 5 MINUTES IF NEEDED ( MAX 3 DOSES.- IF NO RELIEF CALL 911) gabapentin (NEURONTIN) 400 mg capsule Take 300 mg by mouth. (Patient not taking: Reported on 06/29/2023) acetaminophen (TYLENOL) 325 mg tablet 2 tablets by ORAL/FEEDING TUBE route every 4 hours as needed for pain. aspirin 81 mg chewable tablet 1 tablet by ORAL/FEEDING TUBE route once daily. metoprolol tartrate, short acting, (LOPRESSOR) 25 mg tablet Take 1/2 tablet by mouth every 12 hours. pravastatin (PRAVACHOL) 40 mg tablet Take 1 tablet by mouth daily at bedtime. triamterene-hydroCHLOROthiazide (DYAZIDE) 37.5-25 mg per capsule Take 1 capsule by mouth once daily. montelukast (SINGULAIR) 10 mg tablet Take 10 mg by mouth once daily. omega 8-vgg-myn-fish oil (FISH OIL) 100-160-1,000 mg cap Take by mouth. Walker misc front wheeled walker dx left knee hematoma, Print Requisition, Compound multivitamin (MULTIPLE VITAMINS ORAL) Refill(s) 0 baclofen (LIORESAL) 10 mg tablet Baclofen Baclofen Active 5 MG Oral Daily at bedtime August 01, 20173:16pm 08-01-2017 [facility] ([id number]) cetirizine 10 mg ODT Cetirizine Cetirizine Active 10 MG Oral Daily August 01, 2017 3:16pm [id number] ([id number]) Cholecalciferol, Vitamin D3, (VITAMIN D-3) 2,000 unit cap Take by mouth once daily. docusate sodium (COLACE) 100 mg capsule Take 100 mg by mouth once daily. as needed magnesium oxide 400 mg cap Take by mouth once daily. B Complex Vitamins capsule Take 1 capsule by mouth once daily. losartan (COZAAR) 100 mg tablet Take 100 mg by mouth once daily. gabapentin (NEURONTIN) 300 mg capsule Take 300 mg by mouth three times daily. No current facility-administered medications for this visit. ALLERGIES ALLERGIES Allergen Reactions Hydantoins Anaphylaxis throat swells ,hives Phenytoin Anaphylaxis Adhesive Tape (Callie* Rash Carbamazepine Itching Tegretal caused itching Divalproex Sodium Intolerance Fine motor tremors Dulera [Mometasone-* Intolerance Falls Valproic Acid Analo* tremors Amlodipine Unknown intolterance Labetalol Unknown Intolerance Nifedipine Unknown intolerance Valproic Acid Intolerance PHYSICAL EXAMINATION LMP 02/12/1990 (Within Years) General: Well-developed, well-nourished, in no acute distress. HEENT: Normocephalic, atraumatic. Sclerae anicteric. Oropharynx clear. Neck: No carotid bruit. Heart: Regular rate and rhythm, S1 S2, no murmurs. Lungs: Clear to auscultation bilaterally. Abdomen: Abdomen soft, non-tender. Bowel sounds normal. No masses, organomegaly. Extremities: No edema, cyanosis, or clubbing. 2+ dorsalis pedis pulses bilaterally. Skin: No rash or ecchymoses. Neurological: Awake, alert, oriented to person, place, and time. Speech fluent, no dysarthria. Naming, repetition, recall, comprehension, calculation intact. Good attention and insight into illness. Cranial Nerves: PERRL, extraocular movements intact without nystagmus. Visual escobar full. Fundoscopic examination normal with sharp optic discs bilaterally. Facial sensation and movements normal andsymmetric. Palate elevates equal bilaterally. Tongue midline. Trapezius strength 5/5 bilaterally. Motor: Normal bulk and tone. Strength 5/5 throughout. No pronator drift or tremor. Sensation: Intact light touch, pinprick, temperature, proprioception, and vibration. Coordination: Rapid alternating movements symmetric bilaterally. [id number], ceap-fa-etnl without dysmetria bilaterally. Reflexes: 2+/4 reflexes symmetric bilaterally. Plantar response is flexor bilaterally. Gait: Narrow-based, normal spaced and stable without assistance. Tandem gait is stable. LABS Cholesterol: Total Cholesterol, Nonfasting (mg/dL) Date Value 05/03/2023 125 LDL Cholesterol, Nonfasting (mg/dL) Date Value 05/03/2023 58 HDL Cholesterol, Nonfasting (mg/dL) Date Value 05/03/2023 40 Triglycerides, Nonfasting (mg/dL) Date Value 05/03/2023 136 Diabetes: Hemoglobin A1C (%) Date Value 05/03/2023 4.9 IMAGING MRI/MRA brain and C spine 05/04/23: IMPRESSION: Right frontal subarachnoid hemorrhage unchanged from prior CT within the constraints of differing modalities. No cause for subarachnoid hemorrhage is identified on this examination. Patent intracranial circulation. Microvascular ischemic change and volume loss. Cervical spondylosis detailed in the body of the report. Craniocervical junction is the counting reference for the cervical spine exam. CT brain 05/04/23: IMPRESSION: Grossly stable appearance of RIGHT frontal subarachnoid hemorrhage, not significantly changed from 05/03/2023 when accounting for differences in technique. No other significant interval change. Patient Entered Questionnaires PROMIS/NeuroQoL Score Percentiles Percentiles provide an indication of how a patient's score ranks in relation to the [place] general population. 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 After inpatient discussion, decision was made to discontinue AC and continue Aspirin. Bilateral DVT, previously on Eliquis. CAD, s/p coronary stent-monotherapy Aspirin Hypertension, blood pressure controlled PLAN Continue Aspirin. 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 Will continue to monitor while patient is on Aspirin. Continue Pravastatin for secondary stroke prevention and LDL goal below 70. Continue monitoring blood pressure for goal below 130/80. MRI brain in 3-6 months (end of July). Follow up to review results. Medical Decision Making: Medical Decision Making Level: 1 - N/A I spent a total of 45 minutes on the date of service which included preparing to see the patient, [id number] patient care, completing clinical documentation, obtaining and/or reviewing separately obtained history, performing a medically appropriate examination, counseling and educating the patient/family/caregiver, ordering medications, tests, or procedures, communicating with other HCPs (not separately reported), independently interpreting results (not separately reported), communicating results to the patient/family/caregiver, and care coordination (not separately reported) SIGNATURE Delfin Dow APRN.DOMINGO CC No referring provider defined for this encounter. Hardeep Mckenzie [address] [place] [id number] documented in this [facility]04-[facility]24 NoteHNO ID: [id number] Author: CHRISTOPHER CASAREZ APRN.DOMINGO Service: ? Author Type: Nurse Practitioner Type: Progress Notes Filed: 07/17/2023 15:22 Note Text: [facility] Established Visit Carly Marcelino [facility]#: [id number] Date of Service: 06/29/2023 Primary Care Provider: Hardeep Mckenzie DO FOLLOW UP VISIT Carly Marcelino is a 82 year old female, who presents for neurologic evaluation for right frontal cortical SAH 05/03/2023. 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 CTA/MRI did not show source of SAH but MRI was concerning for cerebral amyloid angiopathy. Neurology was consulted and after discussion with vascular medicine the decision was made to continue patient off anticoagulation and start ASA 81. Patient was monitored with EEG, which showed no seizures but was significant for PLEDS. Therefore, patient was continued on keppra with plan for PASS clinic follow up. Discharged home 05/07/2023. Patient is here for follow-up after hospital discharge and to review results of latest CTH. Interval History: - granddaughter accompanies patient. - midsternal chest pain, not sure if cardiac or back/MSK (h/o back fracture) - saw PCP yesterday, was not as bad but worsened through the day. - using a walking stick. - hurts with taking a breath. - unable to describe if sharp, dull, etc. It's just there. - wonders if should take anxiety pill. - feels better talking to provider, calming - dry cough. - went to ED 06/24 and 06/20, never been on so many drugs - nausea re/to keppra, better since cut back and taking PO intake before and after. - living with daughter, wonders if doing too much. - routine disrupted since hospitalization. - some days don't feel good. - very active prior to hospitalization. - don't talk as much, jaw gets tired. - no stroke or seizure activity. - wonders if anxiety, currently under many family stressors. - son 1 week prior to hospitalization. - daugther diagnosed with severe breast cancer. - grandson (father ) hospitalized for PTSD. - waking up early in the mornings. - drinks 1/2 water and 1/2 Gatorade. - plans to see PCP regularly every few weeks. - BP today 126/59. - aspirin 81mg daily. No bleeding or bruising issues. - nonsmoker. - no family history of brain aneurysm; eldest brother suffered two TIAs. Handedness: right-handed Past Medical History: ACTIVE PROBLEM LIST Complete Rupture of Rotator Cuff Fitting and Adjustment of Orthopedic Device ANKLE INSTABILITY DERANGEMENT ANKLE/FOOT Difficulty in Walking(719.7) LOOSE BODY ANKLE/FOOT Follow-Up Examination, Following Unspecified Surgery Rotator Cuff Tear Arthropathy of Both Shoulders Glenohumeral Arthritis Plantar Fasciitis Difficulty Walking Pain in Left Foot Heel Pain, Chronic Heel Spur Right Hand Tendonitis Retinal Macroaneurysm of Left Eye Retinal Hemorrhage of Left Eye Chorioretinal Scar of Left Eye Contusion of Right Foot Enthesopathy of Foot Tendonitis, Achilles, Left Calcaneal Spur of Left Foot Acquired Dysmorphic Toenail Sah (Subarachnoid Hemorrhage) (Hcc) Dvt (Deep Venous Thrombosis) (Hcc) Seizure (Hcc) Primary Hypertension Coronary Artery Disease Involving [place] Coronary Artery of [place] 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 Hyperlipidemia Sciatica of Right Side Uncomplicated Asthma Ivana (Iron Deficiency Anemia) Cerebral Amyloid Angiopathy (Hcc) (Hcc) History of Dvt (Deep Vein Thrombosis) Lymphedema Cerebral Amyloid Angiopathy (Code) Anticoagulation Management Encounter Nonspecific Abnormal Electroencephalogram (Eeg) Morbid Obesity (Hcc) PAST SURGICAL HISTORY Procedure Laterality Date ARTHRP KNE CONDYLEANDPLATU MEDIALANDLAT COMPARTMENTS 2004 bilateral kneee EXCISION CHE NEUROMA EACH x3 PAST SURGICAL HISTORY OF 1967,93 breast bx PAST SURGICAL HISTORY OF 2000 L3-5 laminectomy PAST SURGICAL HISTORY OF bilateral heal spurs PAST SURGICAL HISTORY OF Left 01/20/15 left total reverse shoulder surgery PAST SURGICAL HISTORY OF Right 09/29/15 right total reverse shoulder surgery PHARYNGOPLASTY (RECONSTRUCTION PHARYNX) 2002 d/t DESTINY REMV CATARACT EXTRACAP,INSERT LENS Right SCREENING COLONSCOPY NOT HIGH RISK 2010 TONSILLECTOMY HX 2003 TRABECULOPLASTY BY LASER SURGERY 2003 correction of arterial hemmorhage left eye Allergies: Hydantoins, Phenytoin, Adhesive Tape (Rosins), Carbamazepine, Divalproex Sodium, Dule (more content not included)...[facility]04-19-2024 Instructions* Patient Instructions* Christopher Casarez APRN.WEB PROGRAMMER - 06/29/2023 11:23 AM EDT Stroke Prevention: Aspirin daily lifelong Work with your PCP to optimize blood vessel health Cholesterol: LDL < 100 or if diabetic, < 70. Blood pressure: <140/<90 or if diabetic, < 130/<80. Blood glucose (3 month average): A1C < 5.7% or if diabetic, < 7.0%. Stay tobacco-free Follow a mediterranean diet: (https://my.[facility].org/health/articles/78599-pbsqshvduvzbr-ttcm) Lots of vegetables, fruit, beans, lentils and nuts. Lots of whole grains, like whole-wheat bread and brown rice. Plenty of extra virgin olive oil (EVOO) as a source of healthy fat. A moderate amount of fish, especially fish rich in omega-3 fatty acids. A moderate amount of cheese and yogurt. Little or no meat, choosing poultry instead of red meat. Little or no sweets, sugary drinks or butter. A moderate amount of wine with meals (but if you don t already drink, don t start). Physical activity 30 minutes per day, five days a week Call 911 right away if you or someone else has any of these stroke symptoms: Sudden numbness or weakness in the face, arm, or leg, especially on one side of the body. Sudden confusion, trouble speaking, slurred speech, or difficulty understanding speech. Sudden trouble seeing or double vision in one or both eyes. Sudden trouble walking, dizziness, loss of balance, or lack of coordination. Sudden severe headache, worst headache of life, often accompanied by neck stiffness and vomiting. [facility] History of Present illness Narrative* Christopher Casarez APRN.DOMINGO - 06/29/2023 10:37 AM EDT [facility] Established Visit Carly Marcelino [facility]#: [id number] Date of Service: 06/29/2023 Primary Care Provider: Hardeep Mckenzie DO FOLLOW UP VISIT Carly Marcelino is a 82 year old female, who presents for neurologic evaluation for right frontal cortical SAH 05/03/2023. PCP: Hardeep Mckenzie DO Collaborating Physician: Key Gracia MD Referring Provider: N/A Date of Last Event: 05/03/2023 Reason for visit: Subarachnoid hemorrhage History of Event: 82 yof with PMH seizure disorder (forceps delivery at ), HTN, CAD/MS s/p PCI/Stent 11/2021 on clopidogrel, BLE DVT 06/2022 on apixaban, remote TOB use, asthma, OA, chronic back issues on baclofen,and decreased L eye vision d/t HTN admitted 05/03/2023 with severe WISDOM for several days and HTN of SBP to 250s, found to have right frontal cortical SAH. CTA/MRI did not show source of SAH but MRI was concerning for cerebral amyloid angiopathy. Neurology was consulted and after discussion with vascular medicine the decision was made to continue patient off anticoagulation and start ASA 81. Patient was monitored with EEG, which showed no seizures but was significant for PLEDS. Therefore, patient was continued on keppra with plan for PASS clinic follow up. Discharged home 05/07/2023. Patient is here for follow-up after hospital discharge and to review results of latest CTH. Interval History: - granddaughter accompanies patient. - midsternal chest pain, not sure if cardiac or back/MSK (h/o back fracture) - saw PCP yesterday, was not as bad but worsened through the day. - using a walking stick. - hurts with taking a breath. - unable to describe if sharp, dull, etc. It's just there. - wonders if should take anxiety pill. - feels better talking to provider, calming - dry cough. - went to ED 06/24 and 06/20, never been on so many drugs - nausea re/to keppra, better since cut back and taking PO intake before and after. - living with daughter, wonders if doing too much. - routine disrupted since hospitalization. - some days don't feel good. - very active prior to hospitalization. - don't talk as much, jaw gets tired. - no stroke or seizure activity. - wonders if anxiety, currently under many family stressors. - son 1 week prior to hospitalization. - daugther diagnosed with severe breast cancer. - grandson (father ) hospitalized for PTSD. - waking up early in the mornings. - drinks 1/2 water and 1/2 Gatorade. - plans to see PCP regularly every few weeks. - BP today 126/59. - aspirin 81mg daily. No bleeding or bruising issues. - nonsmoker. - no family history of brain aneurysm; eldest brother suffered two TIAs. Handedness: right-handed Past Medical History: ACTIVE PROBLEM LIST Complete Rupture of Rotator Cuff Fitting and Adjustment of Orthopedic Device ANKLE INSTABILITY DERANGEMENT ANKLE/FOOT Difficulty in Walking(719.7) LOOSE BODY ANKLE/FOOT Follow-Up Examination, Following Unspecified Surgery Rotator Cuff Tear Arthropathy of Both Shoulders Glenohumeral Arthritis Plantar Fasciitis Difficulty Walking Pain in Left Foot Heel Pain, Chronic Heel Spur Right Hand Tendonitis Retinal Macroaneurysm of Left Eye Retinal Hemorrhage of Left Eye Chorioretinal Scar of Left Eye Contusion of Right Foot Enthesopathy of Foot Tendonitis, Achilles, Left Calcaneal Spur of Left Foot Acquired Dysmorphic Toenail Sah (Subarachnoid Hemorrhage) (Hcc) Dvt (Deep Venous Thrombosis) (Hcc) Seizure (Hcc) Primary Hypertension Coronary Artery Disease Involving [place] Coronary Artery of [place] 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 Hyperlipidemia Sciatica of Right Side Uncomplicated Asthma Ivana (Iron Deficiency Anemia) Cerebral Amyloid Angiopathy (Hcc) (Hcc) History of Dvt (Deep Vein Thrombosis) Lymphedema Cerebral Amyloid Angiopathy (Code) Anticoagulation Management Encounter Nonspecific Abnormal Electroencephalogram (Eeg) Morbid Obesity (Hcc) PAST SURGICAL HISTORY Procedure Laterality Date ARTHRP KNE CONDYLE&PLATU MEDIAL&LAT COMPARTMENTS 2003 bilateral kneee EXCISION CHE NEUROMA EACH x3 PAST SURGICAL HISTORY OF 1967,93 breast bx PAST SURGICAL HISTORY OF 2000 L3-5 laminectomy PAST SURGICAL HISTORY OF bilateral heal spurs PAST SURGICAL HISTORY OF Left 01/20/15 left total reverse shoulder surgery PAST SURGICAL HISTORY OF Right 09/29/15 right total reverse shoulder surgery PHARYNGOPLASTY (RECONSTRUCTION PHARYNX) 2002 d/t DESTINY REMV CATARACT EXTRACAP,INSERT LENS Right SCREENING COLONSCOPY NOT HIGH RISK 2010 TONSILLECTOMY HX 2003 TRABECULOPLASTY BY LASER SURGERY 2003 correction of arterial hemmorhage left eye Allergies: Hydantoins, Phenytoin, Adhesive Tape (Rosins), Carbamazepine, Divalproex Sodium, Dulera [Mometasone-Formoterol], Valproic Acid Analogues, Amlodipine, Labetalol, Nifedipine, and Valproic Acid Medications: Current Outpatient Medications Medication Sig spironolactone (ALDACTONE) 25 mg tablet Take 1 tablet by mouth every afternoon. levETIRAcetam XR (KEPPRA XR) 500 mg 24 hr tablet Take 1 tablet by mouth daily at bedtime. albuterol HFA (PROVENTIL HFA, VENTOLIN HFA) 90 mcg/actuation inhaler Inhale 2 Puffs as instructed every 4 hours as needed. ALPRAZolam (XANAX) 0.25 mg tablet Take 1 tablet by mouth every 12 hours. DOCOSAHEXAENOIC ACID ORAL Take 1 capsule by mouth once daily. ferrous sulfate 325 mg (65 mg iron) tablet Take 325 mg by mouth. nitroglycerin sublingual (NITROQUICK) 0.4 mg SL tablet DISSOLVE 1 TABLET UNDER THE TONGUE NEEDEDFOR CHEST PAIN- MAY REPEAT EVERY 5 MINUTES IF NEEDED ( MAX 3 DOSES.- IF NO RELIEF CALL 911) acetaminophen (TYLENOL) 325 mg tablet 2 tablets by ORAL/FEEDING TUBE route every 4 hours as needed for pain. aspirin 81 mg chewable tablet 1 tablet by ORAL/FEEDING TUBE route once daily. metoprolol tartrate, short acting, (LOPRESSOR) 25 mg tablet Take 1/2 tablet by mouth every 12 hours. pravastatin (PRAVACHOL) 40 mg tablet Take 1 tablet by mouth daily at bedtime. triamterene-hydroCHLOROthiazide (DYAZIDE) 37.5-25 mg per capsule Take 1 capsule by mouth once daily. montelukast (SINGULAIR) 10 mg tablet Take 10 mg by mouth once daily. omega 4-uvi-djx-fish oil (FISH OIL) 100-160-1,000 mg cap Take by mouth. Walker misc front wheeled walker dx left knee hematoma, Print Requisition, Compound multivitamin (MULTIPLE VITAMINS ORAL) Refill(s) 0 baclofen (LIORESAL) 10 mg tablet Baclofen Baclofen Active 5 MG Oral Daily at bedtime August 01, 20173:16pm 08-01-2017 [facility] ([id number]) cetirizine 10 mg ODT Cetirizine Cetirizine Active 10 MG Oral Daily August 01, 2017 3:16pm [id number] ([id number]) Cholecalciferol, Vitamin D3, (VITAMIN D-3) 2,000 unit cap Take by mouth once daily. docusate sodium (COLACE) 100 mg capsule Take 100 mg by mouth once daily. as needed magnesium oxide 400 mg cap Take by mouth once daily. B Complex Vitamins capsule Take 1 capsule by mouth once daily. losartan (COZAAR) 100 mg tablet Take 100 mg by mouth once daily. gabapentin (NEURONTIN) 300 mg capsule Take 300 mg by mouth three times daily. amoxicillin-clavulanate potassium (AUGMENTIN) 875-125 mg per tablet famotidine (PEPCID) 40 mg tablet Take 40 mg by mouth daily at bedtime. gabapentin (NEURONTIN) 400 mg capsule Take 300 mg by mouth. No current facility-administered medications for this visit. Social History Tobacco Use Smoking status: Former Packs/day: 0.50 Years: 10.00 Additional pack years: 0.00 Total pack years: 5.00 Types: Cigarettes Quit date: 1976 Years since quittin.3 Smokeless tobacco: Never Vaping Use Vaping Use: Never used Substance Use Topics Alcohol use: Yes Comment: occasional beer when mowing grass on hot day Drug use: No Comment: denies tx for drug/alcohol abuse in the past. Lives with daugther and MILE. , . Family History: Subarachnoid hemorrhage: None Aneurysms: None Stroke: Yes, TIAs (eldest brother) Vascular malformations: None Other neurologic diseases: None Review of Systems Constitutional: Positive for fatigue. HENT: Negative for change in speech and language and trouble swallowing. Eyes: Negative for visual disturbance, double vision, vision loss and ptosis. Respiratory: Positive for cough. Cardiovascular: Positive for chest pain. Hematologic/Lymphatic: Negative for bruises/bleeds easily and prolonged bleeding. Neurological: Positive for weakness. Negative for aphasia, dizziness, headaches, memory difficulty,numbness/tingling and slurred speech. Psychiatric: Positive for anxiety, depression and stress conflicts. See HPI Patient Entered Questionnaires PROMIS/NeuroQoL Score Percentiles Percentiles provide an indication of how a patient's score ranks in relation to the [place] general population. > 31st percentile is within normal limits or better * < 31st percentile is at least SD worse than population, which may be clinically relevant < 16th percentile is at least 1 SD worse than population and warrants attention Depression Screening: PHQ-9 Scores: PHQ-9 Self-Harm (Item 9) Response: 0 - 9 No to Mild depression 0 - Not at all 10 - 14 Moderate depression 1 - Several Days > 15 Severe depression 2 - More than half the days 3 - Nearly every day PHYSICAL EXAMINATION BP 126/59 (BP Site: Right Arm, BP Position: Sitting, BP Cuff Size: Large Adult) Pulse (!) 56 Temp 36.2 C (97.2 F) (Temporal) Resp 13 Ht 170.2 cm (5' 7 ) Wt 86.2 kg (190 lb) LMP 02/12/1990(Within Years) SpO2 97% BMI 29.76 kg/m General: Well-developed, well-nourished, in no acute distress. HEENT: Normocephalic, atraumatic. Sclerae anicteric. Wears glasses. Lungs: Respirations even and unlabored, on room air. Extremities: No edema, cyanosis, or clubbing. Skin: No rash or ecchymoses. Neurological: Awake, alert, oriented to person, place, and time. Speech fluent, no dysarthria. Goodattention and insight into illness. Cranial Nerves: Pupils equal. Extraocular movements intact without nystagmus. Facial sensation and movements normal and symmetric. Tongue midline. Shoulder shrug symmetric. Motor: Normal bulk and tone. Strength 5/5 throughout. No pronator drift. BUE tremor. Sensation: Grossly intact light touch. Coordination: Zmjalv-mi-sino without dysmetria bilaterally. Gait: Ambulates into the office with walker. IMAGING CTH (05/28/2023): There is no acute or significant residual intracranial hemorrhage, mass effect, midline shift, extra-axial collection, evidence of hydrocephalus, skull fracture, or a recent ischemicinfarct identified. Mild patchy chronic white matter changes are again noted. The mastoid air cellsand visualized paranasal sinuses are essentially clear. CTH (05/04/2023): Grossly stable appearance of RIGHT frontal subarachnoid hemorrhage, not significantly changed from 05/03/2023 when accounting for differences in technique. No other significant interval change . MRI brain & cervical + MRA brain (05/04/2023): Right frontal subarachnoid hemorrhage unchanged from prior CT within the constraints of differing modalities. No cause for subarachnoid hemorrhage isidentified on this examination. Patent intracranial circulation. Microvascular ischemic change and volume loss. Cervical spondylosis detailed in the body of the report. Craniocervical junction is thecounting reference for the cervical spine exam. CTH (05/03/2023): Small acute right frontal subarachnoid hemorrhage as described. No other significant changes from 04/20/2023 identified. CTA H&N (04/20/2023): 10% stenosis right internal carotid artery. 20% stenosis left internal carotid artery. Tortuous left vertebral artery as discussed. LABS N/A IMPRESSION 82 yof with PMH seizure disorder (forceps delivery at ), HTN, CAD/MS s/p PCI/Stent 11/2021 on clopidogrel, BLE DVT 06/2022 on apixaban, remote TOB use, asthma, OA, chronic back issues on baclofen,and decreased L eye vision d/t HTN admitted 05/03/2023 with severe WISDOM for several days and HTN of SBP to 250s, found to have right frontal cortical SAH. CTA/MRI did not show source of SAH but MRI was concerning for cerebral amyloid angiopathy. [facility]aint[facility] ASA 81 [facility] Imaging reviewed with patient, SAH resolved, no acute findings, no hydrocephalus. Chest pain improved during appointment, suspect anxiety r/to family and health stressors. Neurologic exam non-focal, deconditioned. PLAN - referral to PT for deconditioning. - referral to behavioral health for anxiety and stressors. - follow-up with stroke [facility] for cerebral amyloid angiopathy. - follow-up with [facility] as directed for AED management. - follow-up with PCP for vascular optimization. - reviewed S/S warranting emergent neurologic care. - follow-up as needed with neurosurgery. All questions/concerns addressed and patient is agreeable to this plan. I spent a total of 40 minutes on the date of the service which included preparing to see the patient, [id number] patient care, completing clinical documentation, obtaining and/or reviewing separately obtained history, performing a medically appropriate examination, counseling and educating the pat ient/family/caregiver, ordering medications, tests, or procedures, communicating with other HCPs (not separately reported), independently interpreting results (not separately reported), communicatingresults to the patient/family/caregiver, and care coordination (not separately reported). SIGNATURE Christopher Casarez APRN.CNP June 29, 2023 [facility] Hospital Discharge instructions Follow Up Care 06/25/2023 12:40:30 With:HARDEEP MCKENZIE Address: [address] [place] [address] Business (1) When:Within 3 Day(s) [facility]04-15-2024 Evaluation + Plan noteExtracted from: Title:ED Note Author:Chirag Hank ZHANG Date:06/10 08/02 Shakiness (R25.1: Tremor, un specified) Orders: Basic Metabolic Panel ECG 12 Lead Adult eGFR Extra Blue Tube Extra Lav Tube Extra SST Tube UA with Cult Rflx [facility]04-11-2024 Hospital Discharge instructions Patient Education 06/21/2023 17:18:40 Prolonged Grief Prolonged Grief Grief is a normal response to the of someone close to you. Feelings of fear, anger, and guiltcan affect almost everyone who loses a loved one. It is also common to have symptoms of depression while you are grieving. These include problems with sleep, loss of appetite, and lack of energy. They may last for weeks or months after a loss. Prolonged grief is different from normal grief or depression. Normal grieving involves sadness and feelings of loss, but those feelings get better and heal over time. Prolonged grief is a severe typeof grief that lasts for a long time, usually for several months to a year or longer. It interferes with your ability to function normally. Prolonged grief may require treatment from a mental health care provider. What are the causes? The cause of this condition is not known. It is not clear why some people continue to struggle withgrief and others do not. What increases the risk? You are more likely to develop this condition if: The of your loved one was sudden or unexpected. The of your loved one was due to a violent event. Your loved one from suicide. Your loved one was a child or a young person. You were very close to your loved one, or you were dependent on him or her. You have a history of depression or anxiety. You have very little to no support from others. What are the signs or symptoms? Symptoms of this condition include: Feeling disbelief or having a lack of emotion (numbness). Being unable to enjoy good memories of your loved one. Needing to avoid anything or anyone that reminds you of your loved one. Being unable to stop thinking about the . Feeling intense anger, loneliness, helplessness, or guilt. Feeling that your life is meaningless and empty, and having trouble moving on with your life. How is this diagnosed? This condition may be diagnosed based on: Your symptoms. Prolonged grief will be diagnosed if you have ongoing symptoms of grief for 6 monthsfor children and 12 months or longer for adults. The effect of symptoms on your life. You may be diagnosed with this condition if your symptoms are interfering with your ability to live your life. Your health care provider may recommend that you see a mental health care provider. Many symptoms of depression are similar to the symptoms of prolonged grief. It is important to be evaluated for prolonged grief along with other mental health conditions. How is this treated? This condition is most commonly treated with talk therapy. This therapy is offered by a mental health specialist (psychiatrist). During therapy: You will learn healthy ways to cope with the loss of your loved one. Your mental health care provider may recommend antidepressant medicines. Follow these instructions at home: Lifestyle Take care of yourself. ?Eat on a regular basis, and maintain a healthy diet. Eat plenty of fruits, vegetables, lean protein, and whole grains. ?Try to get some exercise each day. Aim for 30 minutes of exercise on most days of the week. ?Keep a consistent sleep schedule. Try to get 8 or more hours of sleep each night. ?Start doing the things that you used to enjoy. Do not use drugs or alcohol to ease your symptoms. Spend time with friends and loved ones. General instructions Take [id number] and prescription medicines only as told by your health care provider. Consider joining a grief (bereavement) support group to help you deal with your loss. Keep all follow-up visits. This is important. Contact a health care provider if: Your symptoms prevent you from functioning normally. Your symptoms do not get better with treatment. Get help right away if: You have serious thoughts about hurting yourself or someone else. You have suicidal feelings. Get help right away if you feel like you may hurt yourself or others, or have thoughts about takingyour own life. Go to your nearest emergency room or: Call 911. Call the National Suicide Prevention Lifeline at or 898. This is open 24 hours a day. Text the Crisis Text Line at 959080. Summary Prolonged grief is a severe type of grief that lasts for a long time. This grief is not likely to go away on its own. Get the help you need. Some griefs are more difficult than others and can cause this condition. You may need a certain type of treatment to help you recover if the loss of your loved one was sudden, violent, or due to suicide. You may feel guilty about moving on with your life. Getting help does not mean that you are forgetting your loved one. It means that you are taking care of yourself. Prolonged grief is best treated with talk therapy. Medicines may also be prescribed. Seek the help you need, and find support that will help you recover. This information is not intended to replace advice given to you by your health care provider. Make sure you discuss any questions you have with your health care provider. Document Revised: 10/17/2021 Document Reviewed: 10/17/2021 [employer] Patient Education 2022 [employer]. Follow Up Care 06/21/2023 12:08:40 With:HARDEEP MCKENZIE Address: [facility] [place] [id number] Business (1) When:06/24/2023 17:12:24 [facility]04-11-2024 Miscellaneous Notes* Telephone Encounter - Keisha Eller APRN.CNP - 06/21/2023 3:[address] Lilly spoke with patient Keisha Eller APRN.CNP * Telephone Encounter - Keisha Eller APRN.CNP - 06/21/2023 8:42 AM EDT I would not expect Keppra to be culprit of those symptoms, agree to try XR formulary. Has she had any other recent medication changes / health changes that could be contributing? Per MARTÍNEZ, she did mention having anxiety attacks that she describes as bilateral leg tingling, heat sensation and elevated blood pressure (4 total since discharge). Unclear etiology of these, could be anxiety related however cannot entirely rule out seizures/auras. Could also be beneficial to repeat EEG to further assess. Keisha Eller APRN.DOMINGO * Telephone Encounter - Pedro Alcala RN - 06/20/2023 4:30 PM EDT Patient returned nurse's call. Reports that the reported side effects occur shortly after taking the medication. Sometimes they goaway and sometimes they don't. She denies any symptoms at this time. Patient states that she can tell when her BP is high and associates some of her symptoms with HTN. Patient also reports occasional anxiety type symptoms, stating that she sometimes has thoughts thatshe can't breathe or she is choking when she actually is not. Patient has not started keppra xr yet because she was under the impression that she had to wait oneweek before starting it. Nurse advised patient to consider starting Keppra XR to see if she tolerates it better. Also advised that she routinely monitor her BP with a monitor at home. Call was cut short because patient had trouble hearing nurse due to background noise. Nurse proposed following up with patient tomorrow and patient agreed. Pedro Alcala RN * Telephone Encounter - Pedro Alcala RN - 06/20/2023 11:14 AM EDT Last Visit: 06/15/23 PLAN: - Continue Keppra 500 mg BID - Ok to switch to XR formulation 500 mg QHS if continues to have GI side effects. - If her anxiety attacks continue to occur, would try to increase Keppra to assess response - Would repeat an EEG in the future if the patient is interested in weaning off Keppra - Follow-up in 3 months - Seizure precautions reiterated, patient is not driving at the moment Called patient and left voicemail message. Callback number provided. Called Dr. Christiansen's office and spoke with nurse. Patient reported to them that she experiences side effects after taking her dose of keppra. She stated that it is hard for her to talk , she is fatigued and the muscles in her legs don't work. She wants to D/C medication. Routing for review along with separate encounter from Neurology. Pedro Alcala, RN * Telephone Encounter - Jalyn Unger - 06/20/2023 8:57 AM EDT nurse Cheri w/ Dr. Mckenzie office, PCP says pt's Mouth, legs hurt, overall feels lousy; has high blood pressure; please call back [phone] opt 4. 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 Patient cannot continue Keppra. Please call her [phone] (home). See 06/18/23 encounter. * Telephone Encounter - Heydi Mirza - 06/18/2023 2:57 PM EDT Medication Concern Person Calling Carly Marcelino (home) Name of medication seizure meds Concern with medication blood pressure goes high after taking meds Patient of Dr. lilly [facility] Discharge instructions Follow Up Care 06/18/2023 12:51:54 With:HARDEEP MCKENZIE Address: [facility] [address], [facility] [address] [place] [id number]- Business (1) When:06/21/2023 14:44:47 Comments:Follow-up with your primary care provider in 3 to 5 days. If symptoms worsen, do not improve, or new symptoms arise please report back to emergency department for further evaluation. [facility]04-08-2024 Evaluation + Plan noteExtracted from: Title:ED Note Author:Luis E Wen PA-C te:06/18/23 HTN (hypertension) (I10: Ess ential (primary) hypertension) Orders: Basic Metabolic Panel CBC w/ Auto Diff CT Head or Brain w/o Contrast ED Cardiac Monitoring eGFR Magnesium Level PT & PTT Troponin 0 Hr. Troponin 3 Hr. Troponin 6 Hr. Troponin 9 Hr. UA with Cult Rflx XR Chest Single View [facility]04-08-2024 Miscellaneous Notes* Telephone Encounter - Vickie Dwyer RN - 06/18/2023 12:01 PM EDT Returned call to patient. Patient states that she has had elevated blood pressure with systolic blood pressure to 220 over the last 2 weeks at least. She has tried to go to the ED but has been sent home. She states that she has a headache and feels not right, her blood pressure currently is 186/84 after taking all morning medications. She states yesterday she lost vision in her eyes during [employer]ec[employer]. Patient states her PCP is out of the office and WEB PROGRAMMER is not available. Advised to go to local ED for evaluation. Patient agreed to plan. Will notify Dr Gracia's team * Telephone Encounter - Erendira Ahmadi - 06/18/2023 11:30 AM EDT Images from the original note were not included. CV PHONE Name of caller : Carly Relationship to patient : Self If not self Will need patient permission to release results or disclose health information with called documented in . Patient identified by Name and Date of . ( Carly Leon Chari, 1940). Yes Number to return call [phone] Reason for Call: Symptoms Call: Symptoms: patient states her blood pressure is high, 220/190 this was yesterday, patient states, and patient states she doesn't take her medication everyday, she states her eyes felt funny, but she couldn't see good at [employer]. Patient states the keppra makes her blood pressure spike, patient states her PCP is not in and the WEB PROGRAMMER that is covering she can't get in touch with her. Patient states she haven't felt good after she came home from the hospital, and even when she walks her blood pressure goes up. Patient states she needs management of her blood pressure pills. Duration: 24-48 hours Progression: worse Pain level: 0 on a scale of 0-10. Type of pain (feels like): none Frequency: constant Location of pain: none Pharmacy: [facility] Thank you calling [facility] [place]. You will receive a return call within 48hours ( or 2 business days if close to the weekend). If you feel that this is an urgent issue and needs immediate attention, it is recommended that you contact your primary care provider office or proceed to your nearest Urgent Care Center of Emergency Room ED for evaluation/treatment. [facility] in [facility] Hospital Discharge instructions Patient Education 06/17/2023 17:51:23 Hypertension, Adult Hypertension, Adult High blood pressure (hypertension) is when the force of blood pumping through the arteries is too strong. The arteries are the blood vessels that carry blood from the heart throughout the body. Hypertension forces the heart to work harder to pump blood and may cause arteries to become narrow or stiff. Untreated or uncontrolled hypertension can lead to a heart attack, heart failure, a stroke, kidney disease, and other problems. A blood pressure reading consists of a higher number over a lower number. Ideally, your blood pressure should be below 120/80. The first ( top ) number is called the systolic pressure. It is a measure of the pressure in your arteries as your heart beats. The second ( bottom ) number is called the diastolic pressure. It is a measure of the pressure in your arteries as the heart relaxes. What are the causes? The exact cause of this condition is not known. There are some conditions that result in high bloodpressure. What increases the risk? Certain factors may make you more likely to develop high blood pressure. Some of these risk factorsare under your control, including: Smoking. Not getting enough exercise or physical activity. Being overweight. Having too much fat, sugar, calories, or salt (sodium) in your diet. Drinking too much alcohol. Other risk factors include: Having a personal history of heart disease, diabetes, high cholesterol, or kidney disease. Stress. Having a family history of high blood pressure and high cholesterol. Having obstructive sleep apnea. Age. The risk increases with age. What are the signs or symptoms? High blood pressure may not cause symptoms. Very high blood pressure (hypertensive crisis) may cause: Headache. Fast or irregular heartbeats (palpitations). Shortness of breath. Nosebleed. Nausea and vomiting. Vision changes. Severe chest pain, dizziness, and seizures. How is this diagnosed? This condition is diagnosed by measuring your blood pressure while you are seated, with your arm resting on a flat surface, your legs uncrossed, and your feet flat on the floor. The cuff of the bloodpressure monitor will be placed directly against the skin of your upper arm at the level of your heart. Blood pressure should be measured at least twice using the same arm. Certain conditions can cause a difference in blood pressure between your right and left arms. If you have a high blood pressure reading during one visit or you have normal blood pressure with other risk factors, you may be asked to: Return on a different day to have your blood pressure checked again. Monitor your blood pressure at home for 1 week or longer. If you are diagnosed with hypertension, you may have other blood or imaging tests to help your health care provider understand your overall risk for other conditions. How is this treated? This condition is treated by making healthy lifestyle changes, such as eating healthy foods, exercising more, and reducing your alcohol intake. You may be referred for counseling on a healthy diet and physical activity. Your health care provider may prescribe medicine if lifestyle changes are not enough to get your blood pressure under control and if: Your systolic blood pressure is above 130. Your diastolic blood pressure is above 80. Your personal target blood pressure may vary depending on your medical conditions, your age, and other factors. Follow these instructions at home: Eating and drinking Eat a diet that is high in fiber and potassium, and low in sodium, added sugar, and fat. An exampleof this eating plan is called the DASH diet. DASH stands for Dietary Approaches to Stop Hypertension. To eat this way: ?Eat plenty of fresh fruits and vegetables. Try to fill one half of your plate at each meal with fruits and vegetables. ?Eat whole grains, such as whole-wheat pasta, brown rice, or whole-grain bread. Fill about one fourth of your plate with whole grains. ?Eat or drink low-fat dairy products, such as skim milk or low-fat yogurt. ?Avoid fatty cuts of meat, processed or cured meats, and poultry with skin. Fill about one fourth of your plate with lean proteins, such as fish, chicken without skin, beans, eggs, or tofu. ?Avoid pre-made and processed foods. These tend to be higher in sodium, added sugar, and fat. Reduce your daily sodium intake. Many people with hypertension should eat less than 1,500 mg of sodium a day. Do not drink alcohol if: ?Your health care provider tells you not to drink. ?You are , may be , or are planning to become . If you drink alcohol: ?Limit how much you have to: ?0 1 drink a day for women. ?0 2 drinks a day for men. ?Know how much alcohol is in your drink. In the [place] one drink equals one 12 oz bottle of beer (355 mL), one 5 oz glass of wine (148 mL), or one 1 oz glass of hard liquor (44 mL). Lifestyle Work with your health care provider to maintain a healthy body weight or to lose weight. Ask what an ideal weight is for you. Get at least 30 minutes of exercise that causes your heart to beat faster (aerobic exercise) most days of the week. Activities may include walking, swimming, or biking. Include exercise to strengthen your muscles (resistance exercise), such as Pilates or lifting weights, as part of your weekly exercise routine. Try to do these types of exercises for 30 minutes at least 3 days a week. Do not use any products that contain nicotine or tobacco. These products include cigarettes, chewing tobacco, and vaping devices, such as e-cigarettes. If you need help quitting, ask your health careprovider. Monitor your blood pressure at home as told by your health care provider. Keep all follow-up visits. This is important. Medicines Take [id number] and prescription medicines only as told by your health care provider. Follow directions carefully. Blood pressure medicines must be taken as prescribed. Do not skip doses of blood pressure medicine. Doing this puts you at risk for problems and can makethe medicine less effective. Ask your health care provider about side effects or reactions to medicines that you should watch for. Contact a health care provider if you: Think you are having a reaction to a medicine you are taking. Have headaches that keep coming back (recurring). Feel dizzy. Have swelling in your ankles. Have trouble with your vision. Get help right away if you: Develop a severe headache or confusion. Have unusual weakness or numbness. Feel faint. Have severe pain in your chest or abdomen. Vomit repeatedly. Have trouble breathing. These symptoms may be an emergency. Get help right away. Call 911. Do not wait to see if the symptoms will go away. Do not drive yourself to the hospital. Summary Hypertension is when the force of blood pumping through your arteries is too strong. If this condition is not controlled, it may put you at risk for serious complications. Your personal target blood pressure may vary depending on your medical conditions, your age, and other factors. For most people, a normal blood pressure is less than 120/80. Hypertension is treated with lifestyle changes, medicines, or a combination of both. Lifestyle changes include losing weight, eating a healthy, low-sodium diet, exercising more, and limiting alcohol. This information is not intended to replace advice given to you by your health care provider. Make sure you discuss any questions you have with your health care provider. Document Revised: 01/03/2022 Document Reviewed: 01/03/2022 [employer] Patient Education 2022 [employer]. Follow Up Care 06/17/2023 15:59:13 With:HARDEEP MCKENZIE Address: [facility] [place] [address] [facility] (1) When:06/20/2023 17:24:26 Comments:Make sure to check the blood pressure at home as discussed and with the numbers [facility] pressure medication adjustment. Return to the emergency room if your headache gets worse, you develop chest pain, your blood pressure elevates again or any new symptoms. [facility]04[facility] NoteHNO ID: [id number] Author: NOÉ LILLY MD Service: ? Author Type: Physician Type: Progress Notes Filed: 06/17/2023 14:07 Note Text: [facility] [place] [facility] Patient Name: Carly MORALES Date of : 1940 INITIAL EPILEPSY CLINIC NOTE 06/15/2023 10:00 AM CHIEF COMPLAINT: New Patient, Seizures, and Epilepsy HISTORY OF PRESENT ILLNESS Ms. Marcelino is a 82 year old right-handed female seen in [facility] for initial consultation. There is no one accompanying the patient during today's visit. 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 Seizure description: Loss of awareness without aura. Onset was at the age of 8-9 years. Her last seizure was a very long time ago, probably when she was in college. She was diagnosed with epilepsy at the age of 36 years based on EEG findings and she was started on Dilantin. She mentioned that she was taking a very high dose and suffered from toxicity from the medication. She had an episode of loss of consciousness at work and the next thing she recalls is feeling her body floating. She was seen by a neurologist at that time and her medication was changed to Depakote which caused tremors and then Tegretol that caused itching. Lastly, she was started on Gabapentin which she had taken for years. No history of seizures. No episodes of loss of awareness. No convulsion. She lives alone. She initially presented [facility]/20/2023 for evaluation of worst headache of life (awakening her from sleep, no history of prior headaches) in the setting of multiple stressors (loss of son, daughter diagnosed breast cancer, having to. Multiple family members that required). Headache improved to 5/10 with symptomatic management and ultimately discharged home. 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 [facility] was [facility] management. No clear etiology was found on vessel imaging and her SAH was thought to be due to Eliquis. She was started on bedside EEG monitoring due to her history of seizures but no clinical seizure witnessed at the time of her admission. EEG showed left temporal sharp waves and she was started on Keppra and discharged on 500 mg BID. She has been doing well since discharge, slowly regaining her strength. She denies having any seizures, no episodes of loss of awareness, no shaking in her limbs, no abnormal movements, no tongue biting or urinary incontinence. She did mention having had 4 episodes of bilateral lower extremities tingling and feeling of heat with elevated blood pressure without loss of awareness. She feels anxious during these and has been describing them as anxiety attacks . They are brief and are relieved by taking Xanax. Total # of Current Anti-seizure Medications: Side Effects to Current Anti-seizure Medications: Seizure Frequency at First Visit: Longest Seizure-free Interval: CURRENT OUTPATIENT ANTISEIZURE MEDICATIONS (as of the start of the encounter) gabapentin (NEURONTIN) 400 mg capsule (Taking) gabapentin (NEURONTIN) 300 mg capsule (Taking) levETIRAcetam (KEPPRA) 500 mg tablet Take 1 tablet by mouth two times a day. Prior Anti-seizure Therapies: Trial Adequacy: Max Daily Dose Achieved: Side Effects: Effectiveness: Comments: Comorbidities: Episode Description: Patient Entered Data: EPILEPSY SCORE No Data PHQ-9 SCORE - APOORVA 2 SCORE - APOORVA 7 SCORE - QOLIE-10 SCORE (0=worst; 100=best QoL - higher scores represent better function) - LSSS SCORE (0- no seizures 100- most severe possible seizures) - C-SSRS SCREEN - On average, how many hours of sleep do you get in a 24-hour period? - PROMIS Sleep Disturbance T-SCORE - Have you been diagnosed with Sleep Apnea? 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 HTN (I10: Essential (prim zaki) hypertension) Orders: ED Cardiac Monitoring Keppra Lvl Oxygen Saturation Oxygen Therapy Saline Lock Insert Troponin 9 Hr. UA with Cult Rflx XR Chest Single View Diagnostic Tests Pending * UA with Cult Rflx 06/17/23 * Keppra Lvl 06/17/23 [facility]04-[facility] History of Present illness Narrative* Noé Lilly MD - 06/17/2023 1:50 PM EDT [facility] [place] [facility] Patient Name: Carly MORALES Date of : 1940 INITIAL EPILEPSY CLINIC NOTE 06/15/2023 10:00 AM CHIEF COMPLAINT: New Patient, Seizures, and Epilepsy HISTORY OF PRESENT ILLNESS Ms. Marcelino is a 82 year old right-handed female seen in [facility] for initial consultation. There is no one accompanying the patient during today's visit. 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 Seizure description: Loss of awareness without aura. Onset was at the age of 8-9 years. Her last seizure was a very long time ago, probably when she was in college. She was diagnosed with epilepsy at the age of 36 years based on EEG findings and she was started onDilantin. She mentioned that she was taking a very high dose and suffered from toxicity from the medication. She had an episode of loss of consciousness at work and the next thing she recalls is feeling her body floating. She was seen by a neurologist at that time and her medication was changed to Depakote which caused tremors and then Tegretol that caused itching. Lastly, she was started on Gabapentin which she had taken for years. No history of seizures. No episodes of loss of awareness. No convulsion. She lives alone. She initially presented to [facility] 04/20/2023 for evaluation of worst headache of life (awakening her from sleep, no history of prior headaches) in the setting of multiple stressors (loss of son, daughter diagnosed breast cancer, having to. Multiple family members that required). Headache improved to 5/10 with symptomatic management and ultimately discharged home. 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 [facility] management. No clear etiology was found on vessel imaging and her SAH wasthought to be due to Eliquis. She was started on bedside EEG monitoring due to her history of seizur es but no clinical seizure witnessed at the time of her admission. EEG showed left temporal sharp waves and she was started on Keppra and discharged on 500 mg BID. She has been doing well since discharge, slowly regaining her strength. She denies having any seizures, no episodes of loss of awareness, no shaking in her limbs, no abnormal movements, no tongue biting or urinary incontinence. She did mention having had 4 episodes of bilateral lower extremities tingling and feeling of heat with elevated blood pressure without loss of awareness. She feels anxiousduring these and has been describing them as anxiety attacks . They are brief and are relieved by taking Xanax. Total # of Current Anti-seizure Medications: Side Effects to Current Anti-seizure Medications: Seizure Frequency at First Visit: Longest Seizure-free Interval: CURRENT OUTPATIENT ANTISEIZURE MEDICATIONS (as of the start of the encounter) gabapentin (NEURONTIN) 400 mg capsule (Taking) gabapentin (NEURONTIN) 300 mg capsule (Taking) levETIRAcetam (KEPPRA) 500 mg tablet Take 1 tablet by mouth two times a day. Prior Anti-seizure Therapies: Trial Adequacy: Max Daily Dose Achieved: Side Effects: Effectiveness: Comments: Comorbidities: Episode Description: Patient Entered Data: EPILEPSY SCORE No Data PHQ-9 SCORE - APOORVA 2 SCORE - APOORVA 7 SCORE - QOLIE-10 SCORE (0=worst; 100=best QoL - higher scores represent better function) - LSSS SCORE (0- no seizures 100- most severe possible seizures) - C-SSRS SCREEN - On average, how many hours of sleep do you get in a 24-hour period? - PROMIS Sleep Disturbance T-SCORE - Have you been diagnosed with Sleep Apnea? 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 No cause for subarachnoid hemorrhage is identified on this examination. Patent intracranial circulation. Microvascular ischemic change and volume loss. Cervical spondylosis detailed in the body of the report. Craniocervical junction is the counting reference for the cervical spine exam. Other caregivers: Primary Care Provider: Hardeep Mckenzie, DO Current Outpatient Medications Medication Sig albuterol HFA (PROVENTIL HFA, VENTOLIN HFA) 90 mcg/actuation inhaler Inhale 2 Puffs as instructed every 4 hours as needed. ALPRAZolam (XANAX) 0.25 mg tablet Take 1 tablet by mouth every 12 hours. atorvastatin (LIPITOR) 80 mg tablet Take 80 mg by mouth. clopidogrel (PLAVIX) 75 mg tablet Take 75 mg by mouth. DOCOSAHEXAENOIC ACID ORAL Take 1 capsule by mouth once daily. ferrous sulfate 325 mg (65 mg iron) tablet Take 325 mg by mouth. metoprolol succinate ER (TOPROL XL) 50 mg 24 hr tablet nitroglycerin sublingual (NITROQUICK) 0.4 mg SL tablet DISSOLVE 1 TABLET UNDER THE TONGUE NEEDEDFOR CHEST PAIN- MAY REPEAT EVERY 5 MINUTES IF NEEDED ( MAX 3 DOSES.- IF NO RELIEF CALL 911) gabapentin (NEURONTIN) 400 mg capsule Take 300 mg by mouth. acetaminophen (TYLENOL) 325 mg tablet 2 tablets by ORAL/FEEDING TUBE route every 4 hours as needed for pain. aspirin 81 mg chewable tablet 1 tablet by ORAL/FEEDING TUBE route once daily. pravastatin (PRAVACHOL) 40 mg tablet Take 1 tablet by mouth daily at bedtime. triamterene-hydroCHLOROthiazide (DYAZIDE) 37.5-25 mg per capsule Take 1 capsule by mouth once daily. montelukast (SINGULAIR) 10 mg tablet Take 10 mg by mouth once daily. omega 2-uyb-saq-fish oil (FISH OIL) 100-160-1,000 mg cap Take by mouth. Walker misc front wheeled walker dx left knee hematoma, Print Requisition, Compound multivitamin (MULTIPLE VITAMINS ORAL) Refill(s) 0 baclofen (LIORESAL) 10 mg tablet Baclofen Baclofen Active 5 MG Oral Daily at bedtime August 01, 20173:16pm 08-01-2017 [facility] ([id number]) cetirizine 10 mg ODT Cetirizine Cetirizine Active 10 MG Oral Daily August 01, 2017 3:16pm [id number] ([id number] Cholecalciferol, Vitamin D3, (VITAMIN D-3) 2,000 unit cap Take by mouth once daily. docusate sodium (COLACE) 100 mg capsule Take 100 mg by mouth once daily. as needed magnesium oxide 400 mg cap Take by mouth once daily. B Complex Vitamins capsule Take 1 capsule by mouth once daily. losartan (COZAAR) 100 mg tablet Take 100 mg by mouth once daily. gabapentin (NEURONTIN) 300 mg capsule Take 300 mg by mouth three times daily. levETIRAcetam XR (KEPPRA XR) 500 mg 24 hr tablet Take 1 tablet by mouth daily at bedtime. metoprolol tartrate, short acting, (LOPRESSOR) 25 mg tablet Take 1/2 tablet by mouth every 12 hours. No current facility-administered medications for this visit. ALLERGIES Allergen Reactions Hydantoins Anaphylaxis throat swells ,hives Phenytoin Anaphylaxis Adhesive Tape (Callie* Rash Carbamazepine Itching Tegretal caused itching Divalproex Sodium Intolerance Fine motor tremors Dulera [Mometasone-* Intolerance Falls Valproic Acid Analo* tremors Amlodipine Unknown intolterance Labetalol Unknown Intolerance Nifedipine Unknown intolerance Valproic Acid Intolerance PAST MEDICAL HISTORY Diagnosis Date Arterial aneurysm (HCC) left eye Asthma rare use of albuterol, controled with zafirlukast, advair Bilateral shoulder injury before 1999 working in [employer] home Cataract of left eye Cataracts, bilateral HTN (hypertension) Hyperlipidemia Lung nodule 06/2015 Macular degeneration DESTINY (obstructive sleep apnea) s/p pharyngoplasty no cpap Pseudophakia of right eye PAST SURGICAL HISTORY Procedure Laterality Date ARTHRP KNE CONDYLE&PLATU MEDIAL&LAT COMPARTMENTS 2004 bilateral kneee EXCISION CHE NEUROMA EACH x3 PAST SURGICAL HISTORY OF 1967,93 breast bx PAST SURGICAL HISTORY OF 2000 L3-5 laminectomy PAST SURGICAL HISTORY OF bilateral heal spurs PAST SURGICAL HISTORY OF Left 01/20/15 left total reverse shoulder surgery PAST SURGICAL HISTORY OF Right 09/29/15 right total reverse shoulder surgery PHARYNGOPLASTY (RECONSTRUCTION PHARYNX) 2002 d/t DESTINY REMV CATARACT EXTRACAP,INSERT LENS Right SCREENING COLONSCOPY NOT HIGH RISK 2010 TONSILLECTOMY HX 2003 TRABECULOPLASTY BY LASER SURGERY 2003 correction of arterial hemmorhage left eye FAMILY HISTORY Problem Relation Age of Onset Breast Cancer Mother with mets Cataract Mother Cancer Father prostate with bone mets Cataract Father Cancer Brother colon; survivor x 10 yrs thus far. doing well Cataract Brother No Ocular Disease No Family History nothing known of SOCIAL HISTORY: -Lives in [place], [place] -Patient lives alone? -Vocation: -Education: -Cigarette, alcohol, substance use: -Functional status: -Patient driving? Review of Systems Constitutional: Negative. HENT: Negative. Eyes: Negative. Respiratory: Negative. Cardiovascular: Negative. Gastrointestinal: Negative. Genitourinary: Negative. Musculoskeletal: Positive for muscle weakness. Skin: Negative. VITAL SIGNS: BP 176/76 (BP Site: Right Arm, BP Position: Sitting, BP Cuff Size: Large Adult) Pulse 69 Ht 170.2 cm (5' 7 ) Wt 86.6 kg (191 lb) LMP 02/12/1990 (Within Years) SpO2 99% BMI 29.91 kg/m General Examination: She is alone. General: Awake, alert, interactive, no acute distress, good nutritional status, normal development,well-kept Neurological Exam Mental Status Alert, fully oriented, attentive, with normal cognition, memory, speech and affect. Cranial Nerves Visual escobar intact. Fundi with normal discs and vasculature. Pupils reactive. Extraocular movements conjugate and full. No ptosis. No nystagmus. Facial sensation intact. Face symmetric and strong. Palate and tongue normal. XI normal. Sensation Sensation intact to light touch Gait Needs some assistance to get up from seated position Uses walker to ambulate IMPRESSION: 82 year old right handed woman with a history of recent non-traumatic right frontal SAH (04/2023), remote history of seizures (seizure free for years off antiseizure medication) and recently started on Keppra 500 mg BID after her bedside EEG in April 2023 showed left temporal sharp waves. The SW is on the opposite side of the SAH and likely unrelated, could reflect her history of epilepsy, however she denies having seizures. No definite episodes suggestive of seizures around the time of the hemorrhage either, no loss of awareness, no convulsions or any abnormal movements however she did mention having anxiety attacks that she describes as bilateral leg tingling, heat sensation and elevat ed blood pressure (4 total since discharge). Unclear etiology of these, could be anxiety related however cannot entirely rule out seizures/auras. Recommended continuing Keppra 500 mg BID; can switch to XR 500 mg QHS for abdominal side effects. We can discuss weaning off Keppra at least 6 months to a year after her episode as long as seizure/aura free. PLAN: - Continue Keppra 500 mg BID - Ok to switch to XR formulation 500 mg QHS if continues to have GI side effects. - If her anxiety attacks continue to occur, would try to increase Keppra to assess response - Would repeat an EEG in the future if the patient is interested in weaning off Keppra - Follow-up in 3 months - Seizure precautions reiterated, patient is not driving at the moment Education The following issues were discussed with the patient on this visit and written instructions provided as below- Seizure precautions and safety, seizure first aide, when to seek emergency care. Counseling was provided to the patient that missed medications, addition of some new medications, use of alcohol or other substances, and sleep deprivation can lower the seizure threshold. Patient was advised to not drive until released by a physician. I discussed the risk of depression and psychological comorbidities in patients with epilepsy and when to seek help as well as the black box warning of all antiepileptic medications which can increaserisk for suicidality. Medical Management The possibility of serious and adverse reactions were discussed in detail as well as proper use of medication. I discussed that not taking this medication as directed could worsen seizures and can bedangerous. I discussed the risks, benefits and alternatives of the medical plan with the patient. Questions were answered. The patient agreed with the plan as discussed. FOLLOW-UP: Return in about 3 months (around 09/14/2023). I spent a total of 60 minutes on the date of the service which included: preparing to see the patient [id number] patient care completing clinical documentation obtaining and/or reviewing separately obtained history performing a medically appropriate examination ordering medications, tests, or procedures counseling and educating the patient/family/caregiver Noé Lilly MD cc: Primary Care Physician: Hardeep Mckenzie DO [address] [place] [address] 2 [facility] [id number] Referring: Patient: Ms. 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 You may also feel overwhelmed about the treatment ahead and what it will mean for your life. With care and support, you can manage this condition. How to manage lifestyle changes Managing stress and anxiety Stress is your body's reaction to life changes and events, both good and bad. Most stress will lastjust a few hours, but stress can be ongoing and can lead to more than just stress. Although stress can play a major role in anxiety, it is not the same as anxiety. Stress is usually caused by something external, such as a deadline, test, or competition. Stress normally passes after the triggering event has ended. Anxiety is caused by something internal, such as imagining a terrible outcome or worrying that something will go wrong that will devastate you. Anxiety often does not go away even after the triggering event is over, and it can become long-term (chronic) worry. It is important to understand the differences between stress and anxiety and to manage your stress effectively so that it does not lead enoc anxious response. Talk with your health care provider or a counselor to learn more about reducing anxiety and stress.He or she may suggest tension reduction techniques, such as: Music therapy. Spend time creating or listening to music that you enjoy and that inspires you. Mindfulness-based meditation. Practice being aware of your normal breaths while not trying to control your breathing. It can be done while sitting or walking. Centering prayer. This involves focusing on a word, phrase, or sacred image that means something toyou and brings you peace. Deep breathing. To do this, expand your stomach and inhale slowly through your nose. Hold your breath for 3 5 seconds. Then exhale slowly, letting your stomach muscles relax. Self-talk. Learn to notice and identify thought patterns that lead to anxiety reactions and change those patterns to thoughts that feel peaceful. Muscle relaxation. Taking time to tense muscles and then relax them. Choose a tension reduction technique that fits your lifestyle and personality. These techniques take time and practice. Set aside 5 15 minutes a day to do them. Therapists can offer counseling and training in these techniques. The training to help with anxiety may be covered by some insurance plans. Other things you can do to manage stress and anxiety include: Keeping a stress diary. This can help you learn what triggers your reaction and then learn ways to manage your response. Thinking about how you react to certain situations. You may not be able to control everything, but you can control your response. Making time for activities that help you relax and not feeling guilty about spending your time in this way. Doing visual imagery. This involves imagining or creating mental pictures to help you relax. Practicing yoga. Through yoga poses, you can lower tension and promote relaxation. Medicines Medicines can help ease symptoms. Medicines for anxiety include: Antidepressant medicines. These are usually prescribed for long-term daily control. Anti-anxiety medicines. These may be added in severe cases, especially when panic attacks occur. Medicines will be prescribed by a health care provider. When used together, medicines, psychotherapy, and tension reduction techniques may be the most effective treatment. Relationships Relationships can play a big part in helping you recover. Try to spend more time connecting with trusted friends and family members. Consider going to couples counseling if you have a partner, taking family education classes, or going to family therapy. Therapy can help you and others better understand your condition. How to recognize changes in your anxiety Everyone responds differently to treatment for anxiety. Recovery from anxiety happens when symptomsdecrease and stop interfering with your daily activities at home or work. This may mean that you will start to: Have better concentration and focus. Worry will interfere less in your daily thinking. Sleep better. Be less irritable. Have more energy. Have improved memory. It is also important to recognize when your condition is getting worse. Contact your health care provider if your symptoms interfere with home or work and you feel like your condition is not improving. Follow these instructions at home: Activity Exercise. Adults should do the following: ?Exercise for at least 150 minutes each week. The exercise should increase your heart rate and makeyou sweat (moderate-intensity exercise). ?Strengthening exercises at least twice a week. Get the right amount and quality of sleep. Most adults need 7 9 hours of sleep each night. Lifestyle Eat a healthy diet that includes plenty of vegetables, fruits, whole grains, low-fat dairy products, and lean protein. ?Do not eat a lot of foods that are high in fats, added sugars, or salt (sodium). Make choices that simplify your life. Do not use any products that contain nicotine or tobacco. These products include cigarettes, chewing tobacco, and vaping devices, such as e-cigarettes. If you need help quitting, ask your health careprovider. Avoid caffeine, alcohol, and certain kxex-gsb-xsbrelr cold medicines. These may make you feel worse. Ask your pharmacist which medicines to avoid. General instructions Take uykh-ojc-kwzvdxb and prescription medicines only as told by your health care provider. Keep all follow-up visits. This is important. Where to find support You can get help and support from these sources: Self-help groups. Online and community organizations. A trusted spiritual leader. Couples counseling. Family education classes. Family therapy. Where to find more information You may find that joining a support group helps you deal with your anxiety. The following sources can help you locate counselors or support groups near you: Mental Health [place]: www.mentalhealthamerica.net Anxiety and Depression Association of [place] (ADAA): www.adaa.org National [place] on Mental Illness (LANA): www.lana.org Contact a health care provider if: You have a hard time staying focused or finishing daily tasks. You spend many hours a day feeling worried about everyday life. You become exhausted by worry. You start to have headaches or frequently feel tense. You develop chronic nausea or diarrhea. Get help right away if: You have a racing heart and shortness of breath. You have thoughts of hurting yourself or others. If you ever feel like you may hurt yourself or others, or have thoughts about taking your own life,get help right away. Go to your nearest emergency department or: Call your local emergency services (650 in the [place] Call a suicide crisis helpline, such as the National Suicide Prevention Lifeline at or 449 in the [place] This is open 24 hours a day in the [place] Text the Crisis Text Line at 369890 (in the [place] Summary Taking steps to learn and use tension reduction techniques can help calm you and help prevent triggering an anxiety reaction. When used together, medicines, psychotherapy, and tension reduction techniques may be the most effective treatment. Family, friends, and partners can play a big part in supporting you. This information is not intended to replace advice given to you by your health care provider. Make sure you discuss any questions you have with your health care provider. Document Revised: 09/21/2021 Document Reviewed: 06/19/2021 [employer] Patient Education 2022 [employer] 06/16/2023 08:48:54 Prolonged Grief Prolonged Grief Grief is a normal response to the of someone close to you. Feelings of fear, anger, and guiltcan affect almost everyone who loses a loved one. It is also common to have symptoms of depression while you are grieving. These include problems with sleep, loss of appetite, and lack of energy. They may last for weeks or months after a loss. Prolonged grief is different from normal grief or depression. Normal grieving involves sadness and feelings of loss, but those feelings get better and heal over time. Prolonged grief is a severe typeof grief that lasts for a long time, usually for several months to a year or longer. It interferes with your ability to function normally. Prolonged grief may require treatment from a mental health care provider. What are the causes? The cause of this condition is not known. It is not clear why some people continue to struggle withgrief and others do not. What increases the risk? You are more likely to develop this condition if: The of your loved one was sudden or unexpected. The of your loved one was due to a violent event. Your loved one from suicide. Your loved one was a child or a young person. You were very close to your loved one, or you were dependent on him or her. You have a history of depression or anxiety. You have very little to no support from others. What are the signs or symptoms? Symptoms of this condition include: Feeling disbelief or having a lack of emotion (numbness). Being unable to enjoy good memories of your loved one. Needing to avoid anything or anyone that reminds you of your loved one. Being unable to stop thinking about the . Feeling intense anger, loneliness, helplessness, or guilt. Feeling that your life is meaningless and empty, and having trouble moving on with your life. How is this diagnosed? This condition may be diagnosed based on: Your symptoms. Prolonged grief will be diagnosed if you have ongoing symptoms of grief for 6 monthsfor children and 12 months or longer for adults. The effect of symptoms on your life. You may be diagnosed with this condition if your symptoms are interfering with your ability to live your life. Your health care provider may recommend that you see a mental health care provider. Many symptoms of depression are similar to the symptoms of prolonged grief. It is important to be evaluated for prolonged grief along with other mental health conditions. How is this treated? This condition is most commonly treated with talk therapy. This therapy is offered by a mental health specialist (psychiatrist). During therapy: You will learn healthy ways to cope with the loss of your loved one. Your mental health care provider may recommend antidepressant medicines. Follow these instructions at home: Lifestyle Take care of yourself. ?Eat on a regular basis, and maintain a healthy diet. Eat plenty of fruits, vegetables, lean protein, and whole grains. ?Try to get some exercise each day. Aim for 30 minutes of exercise on most days of the week. ?Keep a consistent sleep schedule. Try to get 8 or more hours of sleep each night. ?Start doing the things that you used to enjoy. Do not use drugs or alcohol to ease your symptoms. Spend time with friends and loved ones. General instructions Take rqky-yqm-erfgvmf and prescription medicines only as told by your health care provider. Consider joining a grief (bereavement) support group to help you deal with your loss. Keep all follow-up visits. This is important. Contact a health care provider if: Your symptoms prevent you from functioning normally. Your symptoms do not get better with treatment. Get help right away if: You have serious thoughts about hurting yourself or someone else. You have suicidal feelings. Get help right away if you feel like you may hurt yourself or others, or have thoughts about takingyour own life. Go to your nearest emergency room or: Call 911. Call the National Suicide Prevention Lifeline at or 863. This is open 24 hours a day. Text the Crisis Text Line at 880642. Summary Prolonged grief is a severe type of grief that lasts for a long time. This grief is not likely to go away on its own. Get the help you need. Some griefs are more difficult than others and can cause this condition. You may need a certain type of treatment to help you recover if the loss of your loved one was sudden, violent, or due to suicide. You may feel guilty about moving on with your life. Getting help does not mean that you are forgetting your loved one. It means that you are taking care of yourself. Prolonged grief is best treated with talk therapy. Medicines may also be prescribed. Seek the help you need, and find support that will help you recover. This information is not intended to replace advice given to you by your health care provider. Make sure you discuss any questions you have with your health care provider. Document Revised: 10/17/2021 Document Reviewed: 10/17/2021 [employer] Patient Education 2022 [employer]. Follow Up Care 06/16/2023 04:18:39 With:[facility] Address:Unknown When:06/19/2023 08:48:14 Comments:Call to establish grief counseling With:[facility] [facility] Address: [address] [place] [address] [facility] (1) When:06/19/2023 08:47:59 Comments:Call to establish grief counseling With:HARDEEP MCKENZIE Address: [address] [address] [facility] (1) When:06/19/2023 08:47:40 Comments:Call the office of your primary care doctor to arrange for follow-up within the above-stated timeframe. Follow-up with your primary care doctor about this ED visit. You should review your labs, imaging, and diagnoses from this ED visit with your primary care physician. There are occasionally non-emergent findings that require additional follow-up after your ED visit. If you were prescribed medications you should discuss possible side-effects and drug interactions with your pharmacist. Call 911 or go to the nearest Emergency Department if you develop any new or worsening symptoms.Seek immediate medical attention if you develop: worsening chest pain, new chest pain, nausea, vomiting, weakness, numbness, tingling, excessive sweating, shortness of breath, difficulty breathing, loss of motion in your arms or legs, or any new or worsening symptoms. [facility]04-05-2024 Instructions* Patient Instructions* Noé Lilly MD - 06/15/2023 10:36 AM EDT You can continue taking Keppra 500 mg 1 tab twice a day for a month and if side effects continue tooccur, stop taking the keppra immediate release and start taking Keppra extended release 500 mg at bedtime Ok to continue taking Gabapentin as previously prescribed documented [facility] Evaluation + Plan note Extracted from: Title:ED Note Author:Do Montez DO Date :06/14/23 Chills (R68.83: Chills (with out fever)) Orders: Basic Metabolic Panel CBC w/ Auto Diff eGFR Extra Blue Tube Extra SST Tube Influenza A&B Ag Rapid COVID Antigen ([facility]) UA with Cult Rflx [facility]04-04-2024 Hospital Discharge instructions Patient Education 06/14/2023 07:59:04 Medical Screening Exam Medical Screening Exam A medical screening exam (MSE) helps to determine whether you need immediate medical treatment relating to any number of symptoms you are having. This type of exam may be done in an emergency department, an urgent care setting, or your health care provider's office. Depending on your symptoms and severity, you may need additional tests or medical therapy. It is important to note that an MSE does not necessarily mean that you will need or receive furthermedical testing or interventions if your symptoms are not deemed to be medically urgent (emergent). Tell a health care provider about: Any allergies you have. All medicines you are taking, including vitamins, herbs, eye drops, creams, and ycxe-iur-jrocepn medicines. Any problems you or family members have had with anesthetic medicines. Any bleeding problems you have. Any surgeries you have had. Any medical conditions you have. Whether you are or may be . What happens during the test? During the exam, a health care provider does a short, often focused, physical exam and asks about your medical history to assess: Your current symptoms. Your overall health. Your need for possible further medical intervention. What can I expect after the test? If you have a regular health care provider, make an appointment for a follow-up visit with him or her. If you do not have a regular health care provider, ask about resources in your community. Your medical screening exam may determine that: You do not need emergency treatment at this time. You need treatment right away. You need to be transferred to another medical center. This may happen if you need an emergent specialist or software consultant that is not available at the medical center you are at. You need to have more tests. A medical reimbursement manager may be consulted if needed. Get help right away if: Your condition gets worse. You develop new or troubling symptoms before you see your health care provider. These symptoms may represent a serious problem that is an emergency. Do not wait to see if the symptoms will go away. Get medical help right away. Call your local emergency services (911 in the [place] Do not drive yourself to the hospital. Summary A medical screening exam helps to determine whether you need medical treatment right away. This type of exam may be done in an emergency department, an urgent care setting, or your health care provider's office. During the exam, a health care provider does a short physical exam and asks about your current symptoms and overall health. Depending on the exam, more tests or therapies may be ordered. However, an MSE does not necessarilymean that you will have further medical testing if your symptoms are not deemed to be urgent. If you need further care that is not offered at your current medical center, you may need to be transferred to another facility. This information is not intended to replace advice given to you by your health care provider. Make sure you discuss any questions you have with your health care provider. Document Revised: 11/09/2021 Document Reviewed: 2021 [employer] Patient Education 2022 [employer]. Follow Up Care 06/14/2023 05:13:36 With:HARDEEP MCKENZIE Address: [facility] TALISHA SILVA[address] [address] [facility] (1) When:06/17/2023 06:56:13 Comments:Please follow-up with your primary care doctor for further evaluation and management. Return to theED for any new or worsening symptoms [facility]03-29-2024 Hospital Discharge instructions Patient Education 06/08/2023 19:39:31 Weakness, Aqpj-zj-Ticp Weakness Weakness is a lack of strength. You may feel weak all over your body (generalized), or you may feelweak in one part of your body (focal). There are many potential causes of weakness. Sometimes, the cause of your weakness may not be known. Some causes of weakness can be serious, so it is important to see your doctor. Follow these instructions at home: Activity Rest as needed. Try to get enough sleep. Most adults need 7 8 hours of sleep each night. Talk to your doctor about how much sleep you need. Do exercises, such as arm curls and leg raises, for 30 minutes at least 2 days a week or as told byyour doctor. Think about working with a physical therapist or marine mammal trainer to help you get stronger. General instructions Take nult-tut-wghswxs and prescription medicines only as told by your doctor. Eat a healthy, well-balanced diet. This includes: ?Proteins to build muscles, such as lean meats and fish. ?Fresh fruits and vegetables. ?Carbohydrates to boost energy, such as whole grains. Drink enough fluid to keep your pee (urine) pale yellow. Keep all follow-up visits. Contact a doctor if: Your weakness does not get better or it gets worse. Your weakness affects your ability to: ?Think clearly. ?Do your normal daily activities. Get help right away if: You have sudden weakness on one side of your face or body. You have chest pain. You have trouble breathing or shortness of breath. You have problems with how you see (vision). You have trouble talking or swallowing. You have trouble standing or walking. You are light-headed or faint. These symptoms may be an emergency. Get help right away. Call 911. Do not wait to see if the symptoms will go away. Do not drive yourself to the hospital. Summary Weakness is a lack of strength. You may feel weak all over your body or just in one part of your body. There are many potential causes of weakness. Sometimes, the cause of your weakness may not be known. Rest as needed, and try to get enough sleep. Most adults need 7 8 hours of sleep each night. Eat a healthy, well-balanced diet. This information is not intended to replace advice given to you by your health care provider. Make sure you discuss any questions you have with your health care provider. Document Revised: 01/29/2022 Document Reviewed: 01/29/2022 [employer] Patient Education 2022 [employer] Follow Up Care 06/08/2023 14:11:37 With:HARDEEP MCKENZIE DO, FAM Address: [address] [place] [address]- When:06/11/2023 [place] [id number] Miscellaneous Notes* Telephone Encounter - Dinah Lopez, CARLOS - 05/29/2023 1:28 PM EDT Spoke with pt, per ASH ct scan is fine, blood is resolve, Has no issue with pt flying. Pt to schedule f/u when returns from [place]. Pt verbalized understanding. * Telephone Encounter - Rola Park - 05/29/2023 11:58 AM EDT Patient calling to discuss CT results. Please call [phone] * Telephone Encounter - Sandy Ho - 05/28/2023 5:07 PM EDT Images from the original note were not included. OSH imaging/records received from [facility]: May 28, 2023 -05.28.23 CT Imaging Report available within imaging electronically. * Telephone Encounter - Rola Park - 05/28/2023 4:01 PM EDT CV PHONE Name of caller : Carly Relationship to patient : Self If not self Will need patient permission to release results or disclose health information with called documented in i. Patient identified by Name and Date of . ( Carly Marcelino, 1940). Yes Number to return call [phone] Reason for Call: Results: Results Calling office requesting result of CT scan test, completed on 05/28/23. Please call patient back at [phone] Patient missed follow up appt scheduled for today 05/28/23.Please call pt to discuss results and whether or not patient is able to fly. . documented in this encounterC[facility]24 NoteHNO ID: [id number] Author: TIFF DRAPER OD Service: ? Author Type: IMAGING NURSE Type: Progress Notes Filed: 05/25/2023 16:36 Note Text: ASSESSMENT/PLAN: 1. 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 Gritty feeling OS QAM. Pt and daughter ed on condition. Start artificial tears BID-TID OU, ryan QHS OS only for incomplete closure. If NI, consider short course of maxitrol ryan and/or oculoplastics eval. 2. 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 Schedule yag OD. Hold Rx until after yag. 3. Pseudophakia, right eye - ICD9: V43.1, ICD10: Z96.1 4. Retinal hemorrhage of left eye - ICD9: 362.81, ICD10: H35.62 - OCT MACULA CIRRUS OU (BOTH EYES) 5. 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 Previously seen by AB - elected conservative observation due to limited visual potential. No sign of puma on exam. Recommend dilated exams q6m 6. Combined form of age-related cataract, left eye - ICD9: 366.19, ICD10: H25.812 Observe due to limited visual potential. Tiff Draper, OD I have confirmed and edited as necessary the relevant ophthalmic history, ROS, and the exam findings as obtained by others. I have seen and examined this patient. I have discussed the case and the management of this patient's care with the resident or fellow as appropriate. I also have reviewed and agree with the assessment and plan as stated above and agree with all of its relevant components. Tiff Draper, [place] May 25, 2023 2:04 [facility]03-15-2024 Instructions* Patient Instructions* Tiff Draper, OD - 05/25/2023 2:05 PM EDT Daytime eye drops: use 2-3 times daily in both eyes (especially the left) Refresh Systane Genteal Theratears Ointment for bedtime use in the left eye: Refresh PM Systane Nighttime Gel documented in this encounterC[facility]innati [facility]03-15-2024 History of Present illness Narrative* Tiff Draper, OD - 05/25/2023 2:03 PM EDT ASSESSMENT/PLAN: 1. 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 Gritty feeling OS QAM. Pt and daughter ed on condition. Start artificial tears BID-TID OU, ryan QHS OS only for incomplete closure. If NI, consider short course of maxitrol ryan and/or oculoplastics eval. 2. 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 Schedule yag OD. Hold Rx until after yag. 3. Pseudophakia, right eye - ICD9: V43.1, ICD10: Z96.1 4. Retinal hemorrhage of left eye - ICD9: 362.81, ICD10: H35.62 - OCT MACULA CIRRUS OU (BOTH EYES) 5. 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 Previously seen by AB - elected conservative observation due to limited visual potential. No sign of puma on exam. Recommend dilated exams q6m 6. Combined form of age-related cataract, left eye - ICD9: 366.19, ICD10: H25.812 Observe due to limited visual potential. Tiff Draper, OD I have confirmed and edited as necessary the relevant ophthalmic history, ROS, and the exam findings as obtained by others. I have seen and examined this patient. I have discussed the case and the management of this patient's care with the resident or fellow as appropriate. I also have reviewed andagree with the assessment and plan as stated above and agree with all of its relevant components. Tiff Draper, OD May 25, 2023 2:04 PM documented in this encounterCincinnati [facility]02-28-2024 NoteHNO ID: [id number] Author: JESSE TREVIZO RN Service: ? Author Type: Registered Nurse Type: Progress Notes Filed: 05/09/2023 14:22 Note Text: Called daughter Hebert who will be taking pt to appts to discuss changing CT scan and f/up with Kerry to 05/27 prior to flying to [place]. Also reviewed with Christopher Casarez NP and she agreed to check CT scan prior to traveling to evaluate for blood resolution. Hebert will assist pt to get on My Chart activation code sent to email. Ct scan to be done at [place] in am on 05/27 followed by VV with Kerry at 1pm. Request sent to schedulers. Hebert states pt called squad after we talked to be checked out because she thought her blood pressure was high. Hebert states that since her brother recently and then she wasdiagnosed with breast cancer her mom has been very anxious. Hebert states they will get the BP cuff out so pt knows where it is and is able to start checking BP. Office number provided for questions/concerns. She appreciated f/up. Jesse Trevizo [facility] History of Present illness Narrative* Jesse Trevizo, CARLOS - 05/09/2023 2:18 PM EST Called daughter Hebert who will be taking pt to appts to discuss changing CT scan and f/up with Kerry to 05/27 prior to flying to [place]. Also reviewed with Christopher Casarez NP and she agreed to check CT scan prior to traveling to evaluate for blood resolution. Hebert will assist pt to get on My Chart activation code sent to email. Ct scan to be done at [place] in am on 05/27 followed by VV with Kerry at 1pm. Request sent to schedulers. Hebert states pt called squad after we talked to be checked out because she thought her blood pressure was high. Hebert states that since her brother recently and then she was diagnosed with breast cancer her mom has been very anxious. Hebert states they will get the BP cuff out so pt knows where it is and is able to start checking BP. Office number provided for questions/concerns. She appreciated f/up. Jesse Trevizo RN * Jesse Trevizo RN - 05/09/2023 12:03 PM EST Suction Plate Carrier Cleaner Endovascular Transitional Care Management Phone Call to Patient/family member (discharged to home) A transitional care management phone call was conducted today with patient after recent hospital discharge on 05/07 for [facility]. The goal of this visit is to review patient progress, confirm appointments,provide office phone number, and answer questions related to patient transition out of the hospital. Red Flags: Since hospital discharge are your symptoms better, worse, or the same? Doing quite well-complained of her two index fingers feeling cold, but has pink fingernails and Denies n/t. (She states other fingers have felt cold in past but not index fingers) She also reports the temperature being colder today. Signs/sx of infection to watch for: change in color, swelling or drainage near incision, fever of 101 or higher. none Sutures/armand still in? Due to be removed? none Pending Tests and Appointments: Appointments for Next 60 Days Date Time Provider Location Dept Phone 06/08/2023 8:[address] 2 MAIN QB (I-STAT) Mn Q [facility] [phone] 06/08/2023 9:00 AM MERARI CORRALES S [facility] [phone] 06/08/2023 10:30 AM MONICA BOSWELL Mn S [facility] [phone] Verification of appointments/change appointment- May need to rearrange f/up CT scan and appt with [facility], pt has tickets to fly [place] on 05/30 and wants to know if she should go. Medications: Do you have questions or concerns about your medication? none Anticoagulants ordered? Stopped for surgery? When to resume? Eliquis/Plavix on hold. Pt taking asa 81 Antiepileptics ordered? Is there an end date or follow-up? Driving restrictions? On Keppra 500mg BID epilepsy f/up on 06/07 Point of Contact: Family member best to contact- self, dtr Verify PCP (add if not listed on chart)verified, has appt on 05/13. Advised her to monitor BP leadingup to appt so PCP will know if meds need adjusting. Did not take BP today. Staff provided office number to contact for f/up questions or concerns.-provided Questions: Questions at the end of the call? See above for all questions,mostly about flying on 05/30 Reviewed Stroke signs/sx below:-reviewed she is aware Sudden numbness or weakness of the face, arm or leg, especially on one side of the body Sudden confusion, trouble speaking, or understanding Sudden trouble seeing in one eye, or both eyes Sudden trouble walking, dizziness, loss of balance, or coordination Sudden severe headache with no known cause Jesse Trevizo RN Endovascular [facility] Plate Car[facility] May 09, 2023 12:11 PM documented in this encounterCincinnati [facility]02-28-2024 NoteHNO ID: [id number] Author: JESSE TREVIZO RN Service: ? Author Type: Registered Nurse Type: Progress Notes Filed: 05/09/2023 12:11 Note Text: Suction Plate Carrier Cleaner Endovascular Transitional Care Management Phone Call to Patient/family member (discharged to home) A transitional care management phone call was conducted today with patient after recent hospital discharge on 05/07 for [facility]. The goal of this visit is to review patient progress, confirm appointments, provide office phone number, and answer questions related to patient transition out of the hospital. Red Flags: Since hospital discharge are your symptoms better, worse, or the same? Doing quite well-complained of her two index fingers feeling cold, but has pink fingernails and Denies n/t. (She states other fingers have felt cold in past but not index fingers) She also reports the temperature being colder today. Signs/sx of infection to watch for: change in color, swelling or drainage near incision, fever of 101 or higher. none Sutures/armand still in? Due to be removed? none Pending Tests and Appointments: Appointments for Next 60 Days Date Time Provider Location Dept Phone 06/08/2023 8:[address] 2 MAIN QB (I-STAT) Mn Q [facility] [phone] 06/08/2023 9:00 AM DEVONTEMERARI HUERTA Mn S [facility] [phone] 06/08/2023 10:30 AM MONICA BOSWELL Mn S [facility] [phone] Verification of appointments/change appointment- May need to rearrange f/up CT scan and appt with [facility], pt has tickets to fly [place] on 05/30 and wants to know if she should go. Medications: Do you have questions or concerns about your medication? none Anticoagulants ordered? Stopped for surgery? When to resume? Eliquis/Plavix on hold. Pt taking asa 81 Antiepileptics ordered? Is there an end date or follow-up? Driving restrictions? On Keppra 500mg BID epilepsy f/up on 06/07 Point of Contact: Family member best to contact- self, dtr Verify PCP (add if not listed on chart)verified, has appt on 05/13. Advised her to monitor BP leading up to appt so PCP will know if meds need adjusting. Did not take BP today. Staff provided office number to contact for f/up questions or concerns.-provided Questions: Questions at the end of the call? See above for all questions,mostly about flying on 05/30 Reviewed Stroke signs/sx below:-reviewed she is aware Sudden numbness or weakness of the face, arm or leg, especially on one side of the body Sudden confusion, trouble speaking, or understanding Sudden trouble seeing in one eye, or both eyes Sudden trouble walking, dizziness, loss of balance, or coordination Sudden severe headache with no known cause Jesse Trevizo RN Endovascular Suction Plate Carrier [facility] May 09, 2023 12:11 [facility]02-28-2024 NotePatient Outreach (NSEVMN) CARLY MARCELINO ([id number]) 1940 F [place] Date Time Provider Department 05/09/23 KEY GRACIA During your visit today, we recorded the following information about you: Jesse Trevizo, RN 05/09/2023 12:11 PM Signed Su[employer] Endovascular Transitional Care Management Phone Call to Patient/family member (discharged to home) A transitional care management phone call was conducted today with patient after recent hospital discharge on 05/07 for [facility]. The goal of this visit is to review patient progress, confirm appointments, provide office phone number, and answer questions related to patient transition out of the hospital. Red Flags: Since hospital discharge are your symptoms better, worse, or the same? Doing quite well-complained of her two index fingers feeling cold, but has pink fingernails and Denies n/t. (She states other fingers have felt cold in past but not index fingers) She also reports the temperature being colder today. Signs/sx of infection to watch for: change in color, swelling or drainage near incision, fever of 101 or higher. none Sutures/armand still in? Due to be removed? none Pending Tests and Appointments: Appointments for Next 60 Days Date Time Provider Location Dept Phone 06/08/2023 8:[address] 2 MAIN QB (I-STAT) Lise Q [facility] [phone] 06/08/2023 9:00 AM MERARI CORRALES S [facility] [phone] 06/08/2023 10:30 AM MONICA BOSWELL [facility] [phone] Verification of appointments/change appointment- May need to rearrange f/up CT scan and appt with [facility], pt has tickets to fly [place] on 05/30 and wants to know if she should go. Medications: Do you have questions or concerns about your medication? none Anticoagulants ordered? Stopped for surgery? When to resume? Eliquis/Plavix on hold. Pt taking asa 81 Antiepileptics ordered? Is there an end date or follow-up? Driving restrictions? On Keppra 500mg BID epilepsy f/up on 06/07 Point of Contact: Family member best to contact- self, dtr Verify PCP (add if not listed on chart)verified, has appt on 05/13. Advised her to monitor BP leading up to appt so PCP will know if meds need adjusting. Did not take BP today. Staff provided office number to contact for f/up questions or concerns.-provided Questions: Questions at the end of the call? See above for all questions,mostly about flying on 05/30 Reviewed Stroke signs/sx below:-reviewed she is aware Sudden numbness or weakness of the face, arm or leg, especially on one side of the body Sudden confusion, trouble speaking, or understanding Sudden trouble seeing in one eye, or both eyes Sudden trouble walking, dizziness, loss of balance, or coordination Sudden severe headache with no known cause Jesse Trevizo RN Endovascular [facility] May 09, 2023 12:11 PM Jesse Trevizo RN 05/09/2023 2:22 PM Signed Called daughter Hebert who will be taking pt to appts to discuss changing CT scan and f/up with Kerry to 05/27 prior to flying to [place]. Also reviewed with Christopher Casarez NP and she agreed to check CT scan prior to traveling to evaluate for blood resolution. Hebert will assist pt to get on My Chart activation code sent to email. Ct scan to be done at [place] in am on 05/27 followed by VV with Kerry at 1pm. Request sent to schedulers. Hebert states pt called brenda after we talked to be checked out because she thought her blood pressure was high. Hebert states that since her brother recently and then she was diagnosed with breast cancer her mom has been very anxious. Hebert states they will get the BP cuff out so pt knows where it is and is able to start checking BP. Office number provided for questions/concerns. She appreciated f/up. Jesse Trevizo RN Allergies As of Date: 05/09/2023 Noted Allergy Reaction HYDANTOINS 05/01/2003 10 - Anaphylaxis Comments: throat swells ,hives PHENYTOIN 11/06/2012 10 - Anaphylaxis ADHESIVE TAPE (ROSINS) 09/11/2011 2 - Rash CARBAMAZEPINE 05/01/2003 9 - Itching Comments: Tegretal caused itching DIVALPROEX SODIUM 12/14/2018 5 - Intolerance Comments: Fine motor tremors DULERA (MOMETASONE-FORMOTEROL) 09/15/2014 5 - Intolerance Comments: Falls VALPROIC ACID ANALOGUES 05/01/2003 Comments: tremors AMLODIPINE 11/06/2012 16 - Unknown Comments: intolterance LABETALOL 11/06/2012 16 - Unknown Comments: Intolerance NIFEDIPINE 11/06/2012 16 - Unknown Comments: intolerance VALPROIC ACID 11/06/2012 5 - Intolerance Date Reviewed: 05/07/2023 Reviewed by: Ledy Vick RN - Fully Assessed Reason for Visit: 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 Up [3601] Cmt: Endovascular LENY Prescriptions as of 05/09/2023 - acetaminophen (TYLENOL) 325 mg tablet 2 tablets by ORAL/FEEDING TUBE route every 4 hours as needed for pain. - aspirin 81 mg chewabl (more content not included)...[facility] 05-07-2023 NoteHNO ID: [id number] Author: LJ FENTON ? Service: Pharmacy Author Type: Optic Fibre Drawer Type: Plan of Care Filed: 05/07/2023 13:48 Note Text: PHARMACY BEDSIDE DELIVERY SERVICE Patient Name: Carly Marcelino The marked outpatient medications were Filled at: [facility] and delivered to the patient's bedside to patient Medication List START taking these medications acetaminophen 325 mg tablet Commonly known as: TYLENOL 2 tablets by ORAL/FEEDING TUBE route every 4 hours as needed for pain. MEDICATION: PATIENT REFUSED aspirin 81 mg chewable tablet 1 tablet by ORAL/FEEDING TUBE route once daily. Start taking on: May 08, 2023 MEDICATION: DELIVERED levETIRAcetam 500 mg tablet Commonly known as: KEPPRA Take 1 tablet by mouth two times a day. MEDICATION: DELIVERED metoprolol tartrate (short acting) 25 mg tablet Commonly known as: LOPRESSOR Take 1/2 tablet by mouth every 12 hours. MEDICATION: DELIVERED pravastatin 40 mg tablet Commonly known as: PRAVACHOL Take 1 tablet by mouth daily at bedtime. MEDICATION: DELIVERED CONTINUE taking these medications baclofen 10 mg tablet cetirizine 10 mg Odt docusate sodium 100 mg capsule Commonly known as: COLACE Fish OiL 100-160-1,000 mg Cap Generic drug: omega 7-jlz-qto-fish oil losartan 100 mg tablet Commonly known as: COZAAR magnesium oxide 400 mg magnesium Cap montelukast 10 mg tablet Commonly known as: SINGULAIR MULTIPLE VITAMINS ORAL NEURONTIN 300 mg capsule Generic drug: gabapentin triamterene-hydroCHLOROthiazide 37.5-25 mg per capsule Commonly known as: DYAZIDE Take 1 capsule by mouth once daily. vitamin b complex capsule Vitamin D-3 50 mcg (2,000 unit) Cap Generic drug: Cholecalciferol (Vitamin D3) [facility] [place] You might also be taking other medications not listed above. If you have questions about any of your other medications, talk to the person who prescribed them or your Primary Care Provider. STOP taking these medications Vitamin E (dl, acetate) 1,000 unit capsule Lj Fenton PAGER: [phone] May 07, 2023 1:47 [facility]02-25-2024 NoteHNO ID: [id number] Author: GAVINO SANDHU MD Service: Neurosurgery Author Type: Resident Type: Progress Notes Filed: 05/06/2023 10:07 Note Text: Neurosurgery Inpatient Progress Note Interval HPI: No acute events overnight Objective: 05/06/23 0300 05/06/23 0400 05/06/23 0500 05/06/23 0600 BP: 116/56 124/59 121/58 114/57 Pulse: 70 63 62 60 Resp: 23 24 19 16 Temp: TempSrc: SpO2: 96% 95% 95% 95% Weight: 87.4 kg (192 lb 10.9 oz) Height: No intake or output data in the 24 hours ending 05/06/23 1005 EXAM: E4M6V5 A/O x 3 speech clear. PERRL EOMs and VF intact to finger movement FS, TM BUE 5/5 BLE 5/5 except No drift SILT A/P: 82 yo RHW w/PMH seizure disorder (forceps delivery at ), HTN, CAD/MS s/p PCI/Stent 12/01 on MADHAVI, BLE DVT 07/02 on apixaban, obesity, remote TOB use, asthma, OA, chronic back issues on baclofen, and decreased L eye vision d/t HTN admitted May 03, 2023 with RF cortical SAH. - MRI Brain and C spine, MRA - no evidence of etiology of SAH - BEM negative - Stroke c/s, appreciate recommendations - ASA 81 to start today, vasc med c/s for alternatives to chronic AC - Hold AC for now - SCDs, hold DVT ppx Staff: Dr. Toni Sandhu MD Neurosurgery PGY2 Pager: [phone] May 06, 2023 10:05 AM Please page [phone] after 6pm and weekendUniversity [facility]als [facility] NoteHNO ID: [id number] Author: GAVINO SANDHU MD Service: Neurosurgery Author Type: Resident Type: Progress Notes Filed: 05/05/2023 11:16 Note Text: Neurosurgery Inpatient Progress Note Interval HPI: No acute events overnight. Transferred to SDU Objective: 05/04/23 0500 05/04/23 0600 05/04/23 0700 05/04/23 0800 BP: 116/56 124/58 135/59 137/62 Pulse: 66 66 66 65 Resp: 16 23 15 15 Temp: 36.5 ?C (97.7 ?F) TempSrc: Oral SpO2: 95% 95% 95% 95% Weight: Height: Intake/Output Summary (Last 24 hours) at 05/04/2023 0858 Last data filed at 05/04/2023 0600 Gross per 24 hour Intake 1605 ml Output 300 ml Net 1305 ml EXAM: E4M6V5 A/O x 3 speech clear. PERRL EOMs and VF intact to finger movement FS, TM BUE 5/5 BLE 5/5 except No drift SILT A/P: 82 yo RHW w/PMH seizure disorder (forceps delivery at ), HTN, CAD/MS s/p PCI/Stent 12/01 on MADHAVI, BLE DVT 07/02 on apixaban, obesity, remote TOB use, asthma, OA, chronic back issues on baclofen, and decreased L eye vision d/t HTN admitted May 03, 2023 with RF cortical SAH. - MRI Brain and C spine, MRA - no evidence of etiology of SAH - Hold AC/AP - restart plan PBD10 with [facility] after - Stroke c/s, appreciate recommendations - SCDs, hold DVT ppx Staff: Dr. Toni Sandhu MD Neurosurgery PGY2 Pager: [phone] May 05, 2023 11:16 AM Please page [phone] after 6pm and weekendUniversity Hospitals [facility]02-[facility]24 NoteHNO ID: [id number] Author: MJ CABALLERO DO Service: Neurology ICU Author Type: Fellow Type: Plan of Care Filed: 05/04/2023 18:35 Note Text: Nurse notified LIP around 6:20 pm, with potential exam change. Patient was eating dinner on chair, with slurred speech and difficult swallowing, possible RUE drift. Assessed patient on bedside within secs after notification, patient sitting on chair, AANDO x3. States she feel tire eating, and she remembered she has trouble swallowing, and some slurred speech. On my exam, no change with intact fluency, comprehension, and also repetition. She swallowed fine with my evaluation. Also, motor overall 5/5 with relative drift of bilateral UE given she has chronic joint problems. No obvious focal deficits. Will get baseline CTH for evaluation, and also BEM given remote history of seizure. Ask nurse to follow patient closely for the next few hours for monitoring any persistent or new transient changes.[facility]02-23-2024 NoteHNO ID: [id number] Author: BRENDAN PARIKH RT(R) Service: Radiology Author Type: Technologist Type: Progress Notes Filed: 05/04/2023 12:06 Note Text: Radiology Service Progress Note PATIENT NAME: Carly Marcelino DATE OF SERVICE: May 04, 2023 TIME: 12:05 PM PATIENT IDENTITY VERIFICATION COMPLETED USING TWO (2) IDENTIFIERS: Name and Date of confirmed by patient verbally. FALL SCREENING: Has the patient had 2 falls in the last year or 1 fall with injury or currently using an Ambulatory Assistive Device (Walker, Cane, Wheelchair, Crutches, etc.)? Inpatient: Screened on floor PATIENT GENDER DATA: Female. status: : No status: NO. PATIENT RELEVANT IMPLANT DATA REVIEWED: Yes PATIENT PRESENTS WITH AN IMPLANTABLE OR ATTACHED TRACER LATHE SET UP OPERATOR: No RADIOLOGY DEPARTMENT: MR; Exam(s) Completed: Head: Routine Brain [place] [facility] [place] MRA Spine: Cervical spine PERIPHERAL IV DATA: Inpatient: see LDA documentation SIGNED BY: RT Kannan(R) May 04, 2023 12:05 [facility]02-23-2024 NoteHNO ID: [id number] Author: SARKIS ORONA DO Service: Neurology ICU Author Type: Resident Type: Progress Notes Filed: 05/04/2023 10:00 Note Text: Attestation signed by Jass Penn MD at 05/04/2023 12:35 PM PATIENT NAME: Carly Marcelino PATIENT STAFF COORDINATION OF CRITICAL CARE I have reviewed the progress note obtained and documented by the resident, Dr Orona and I personally participated in the kuo components. I have discussed the case and management of the patient's care. The following comments revise or confirm relevant kuo components of the note. I have repeated the examination and confirm the findings except as documented below. PATIENT PROBLEMS I REVIEWED, REVISED AND/OR INITIATED: Principal Problem: SAH (subarachnoid hemorrhage) (HCC) Active Problems: DVT (deep venous thrombosis) (HCC) Seizure (HCC) Primary hypertension Coronary artery disease involving [place] coronary artery of [place] heart without angina pectoris Mixed hyperlipidemia Sciatica of right side Uncomplicated asthma IVANA (iron deficiency anemia) Resolved Problems: * No resolved hospital problems. * PLAN Neur checks MRI/MRA head and neck Keep sbp<160 Pain control D/w Stroke and nsgy, SDU transfer Off eliquis s/p feiba reversal Please see the documented myzdhg-sp-mrzrku plan in the updated problem list. [facility] Staff Physician note of personal involvement in Care: I was personally involved in the care of this patient. The required my full attention and direct personal management. Jass Penn MD Staff, Neurointensive Care Neurological [place] PAGER: [phone] (2NICU for director of curriculum and instruction) DATE of SERVICE: May 04, 2023 TIME of SERVICE: 12:32 PM This is an electronically created document. If printed, please do not remove from the chart or modify printed copy. NEURO ICU - PROGRESS NOTE DATE OF ADMISSION: 05/03/2023 SERVICE DATE: 05/04/2023 SERVICE TIME: 9:54 AM Subjective Overnight Events: No acute events overnight Seen at bedside this AM without acute complaints HDS with BP 116-133 SBP on losartan and no PRN overnight On RA Hgb stable 11.5, iron studies withTsat 28% and ferritin >150 Hospital Course to Date: - 05/03 - autolaunched from OSH for SAH. On arrival HDS, no focal neurodeficit. Etiology unclear. No acute neurosx intervention. -05/04 - BP at goal. Awaiting MRI/MRA Objective BP 126/58 Pulse 76 Temp 36.5 ?C (97.7 ?F) (Oral) Resp 18 Ht 170.2 cm (5' 7 ) Wt 86.7 kg (191 lb 2.2 oz) LMP 02/12/1990 (Within Years) SpO2 98% BMI 29.94 kg/m? Weight change: Neuro: Aox3 in no acute distress GCS: Total: 15 CRANIAL NERVES: CN II-XII intact MOTOR STRENGTH: Upper and lower extremity 5/5 except Plantar flexion: Left 5/5, Right 4+/5 SENSATION: Intact light touch COORDINATION: Finger-to- nose-finger intact bilaterally and Npoq-xj-zryv intact bilaterally CV: normal rate regular rhythm S1/2 present without murmur Pulm: CTAB without accessory muscle use, Mechanical Ventilation: No. Supplemental Oxygen: No GI/: abdomen soft bowel sounds present Skin/Extremities: Edema- Yes Peripheral pulses- Present all extremities Wounds/Drsgs- No Breakdown- No Assessment/Plan Neurology * SAH (subarachnoid hemorrhage) (HCC)- (present on admission) Began 05/03 in the morning, no previous hx of bleeds, no trauma, no family hx of bleeds or aneurysms. Plan: MRI/MRA MRI cervical spine SBP <160 - home losartan, metoprolol tartrate and PRN, holding home HCTZ NC Q4H Hold AC/AP NSGY recs Sciatica of right side Assessment: previous hx of R sided sciatica with R LE weakness. Appreciated on admission physical exam. - home baclofen and gabapentin Plan - baclofen - gabapentin Seizure (HCC)- (present on admission) Assessment - hx of seizures that patient states are 2/2 to forceps . Per patient last seizure was years ago . Does not follow with neurology as outpatient. Review of med list shows that she is not on any AED as outpatient (has allergy to multiple AED). Plan - stop Keppra 750 BID Cardiovascular Mixed hyperlipidemia Plan - pravastatin Coronary artery disease involving [place] lag[place] coronary artery of [place] heart without angina pectoris Assessment: hx of CAD c/b NSTEMI 11/2021 with LETICIA to RCA. Follows with cardiology, per outpatient note patient was recommended to be on indefinite clopidogrel. Last [facility] 11/2021 noting significant calcification in LCx and LAD. - BB: metoprolol tartrate 12.5 BID - Statin: pravastatin (previous intolerance to high intensity statin) - AP: clopidogrel - lipid panel LDL-c 59 - Hgb A1c 4.9% Plan: - holding clopidogrel - continue metoprolol 12.5 mg BID - pravastatin 40 mg daily, goal LDL-c (more content not included)...[facility]02-23-2024 NoteHNO ID: [id number] Author: RIAZ EVANS MD Service: Neurosurgery Author Type: Resident Type: Progress Notes Filed: 05/04/2023 06:18 Note Text: Neurosurgery Inpatient Progress Note Interval HPI: No acute events overnight. Objective: 05/04/23 0200 05/04/23 0300 05/04/23 0400 05/04/23 0500 BP: 132/63 131/60 133/62 116/56 Pulse: 70 69 65 66 Resp: 19 17 17 16 Temp: 37.3 ?C (99.1 ?F) TempSrc: Axillary SpO2: 95% 94% 94% 95% Weight: Height: Intake/Output Summary (Last 24 hours) at 05/04/2023 0531 Last data filed at 05/04/2023 0400 Gross per 24 hour Intake 1150 ml Output 300 ml Net 850 ml EXAM: E4M6V5 A/O x 3 speech clear. PERRL EOMs and VF intact to finger movement FS, TM BUE 5/5 BLE 5/5 except No drift SILT A/P: 82 yo RHW w/PMH seizure disorder (forceps delivery at ), HTN, CAD/MS s/p PCI/Stent 12/01 on MADHAVI, BLE DVT 07/02 on apixaban, obesity, remote TOB use, asthma, OA, chronic back issues on baclofen, and decreased L eye vision d/t HTN admitted May 03, 2023 with RF cortical SAH. - MRI Brain and C spine, MRA - DSA pending above - Hold AC/AP - Stroke c/s - SCDs, hold DVT ppx Staff: Dr. Toni Hart MD Neurosurgery PGY1 Pager: [phone] May 04, 2023 5:31 AM Please page [phone] after 6pm and weekendUniversity [facility]als [facility]02-22-2024 NoteHNO ID: [id number] Author: MARV RECINOS MD Service: Neurology ICU Author Type: Resident Type: Plan of Care Filed: 05/03/2023 17:14 Note Text: NICU Plan of Care May 03, 2023 5:13 PM Patient's daughter Hebert Alvarez called requesting additional information about patient's condition. Provided an update from NICU team standpoint, answered all questions at this time. Ms. Alvarez plans to come to NICU tonight to see her mother. Informed her that if she has additional questions at that time, NICU team will be available to answer. Marv Recinos MD PGY-3 [facility]24 NoteHNO ID: [id number] Author: ALDO WORRELL APRN.DOMINGO Service: ? Author Type: Nurse Practitioner Type: Progress Notes Filed: 05/03/2023 15:55 Note Text: CRITICAL CARE TRANSPORT MEDICAL CONTROL CONSULT NOTE Patient Name: Carly Marcelino Service Date: May 03, 2023 Referring Facility: [facility] Accepting Facility: [facility] MAIN REASON FOR TRANSPORT: Need for neurosurgical evaluation and management not available at referring facility REASON FOR CONSULT: General management CCT MEDICAL CONTROL CONSULT SUMMARY: History, physical exam findings, and available background patient information from CCT Transport Nurse were reviewed at the time of consult. Pertinent additional information was reviewed as follows: CCT transport request log In brief, Carly Marcelino is a 82 year old female with a history, known at time of consult, significant for HTN, CAD, and DVT on home eliquis and plavix who presented to [facility] for evaluation of new onset vision changes/weakness and hypertension (SBP ~ 250 mmHg. 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 Treated with multiple anti-hypertensive agents and given Andexxa at referring facility for DOAC reversal. Called by CCT team for general management with SBP 100s and regarding prophylactic AED therapy. Per discussion with CCT team she remains awake and alert, VSS on RA, with no concerns of clinical seizure activity. PLAN: Multiple factors considered including: patient history/condition/trajectory/stability, referring and receiving destinations, duration of transport time, medications and therapies available during transport, patient safety, as well as crew capabilities. Orders given for: 500 ml LR bolus, defer AED therapy to accepting facility Plan of care and orders confirmed and read back via telephone with CCT Transport reconnaissance crewmember, Kt Mccoy RN SIGNATURE: Aldo Worrell APRN.[facility] Acute Care Nurse Practitioner [facility] Evaluation + Plan noteExtracted from: Title:ED Note Author:Stacia Dwyer DO Date: Hypertensive emergency (I16. 1: Hypertensive emergency) Stroke-like symptoms (R29.90: Unspecified symptoms and signs involving the nervous system) Subarachnoid hemorrhage (I60.9: Nontraumatic subarachnoid hemorrhage, unspecified) Orders: coagulation factor Xa, 400 mg = 40 mL, Powder-Inj, IV Piggyback, Once, Stop date 05/03/23 10:11:00 EST, STAT, Start date 05/03/23 10:11:00 EST, 184.62 mL/hr, Infuse over 13 minute(s) coagulation factor Xa, 480 mg = 48 mL, Powder-Inj, IV Piggyback, Once, Stop date 05/03/23 10:11:00 EST, STAT, Start date 05/03/23 10:11:00 EST, 24 mL/hr, Infuse over 2 hour(s) hydrALAZINE, 10 mg = 0.5 mL, Injection, IV Push, Once, Stop date 05/03/23 11:17:00 EST, STAT, Start date 05/03/23 11:17:00 EST, 05/03/23 11:17:00 EST labetalol, 10 mg = 2 mL, Injection, IV Push, Once, Stop date 05/03/23 10:11:00 EST, STAT, Start date 05/03/23 10:11:00 EST, 05/03/23 10:11:00 EST labetalol, 20 mg = 4 mL, Injection, IV Push, Once, Stop date 05/03/23 10:50:00 EST, STAT, Start date 05/03/23 10:50:00 EST, 05/03/23 10:50:00 EST lorazepam, 0.5 mg = 0.25 mL, Injection, IV Push, Once, Stop date 05/03/23 12:00:00 EST, Routine, Start date 05/03/23 12:00:00 EST, 05/03/23 11:16:00 EST Sodium Chloride 0.9% intravenous solution, 50 mL, Soln-IV, IV Piggyback, Once, Stop date 05/03/23 10:11:00 EST, STAT, Start date 05/03/23 10:11:00 EST, 300 mL/hr, Infuse over 10, minute(s), Total Vol (mL): 50 ABO/Rh ABO/Rh History Check Antibody Screen Basic Metabolic Panel Blood Bank ID# CBC w/ Auto Diff Consult to Tele-Neurology CT Head or Brain w/o Contrast eGFR Extra Blue Tube Extra SST Tube Saline Lock Insert Transfer Patient to Troponin 0 Hr. Troponin 3 Hr. UA With Cult Reflex XR Chest Single View [facility]02-22-2024 History of Present illness Narrative* Aldo Worrell APRN.[employer] - 05/03/2023 1:46 PM EST Images from the original note were not included. CRITICAL CARE TRANSPORT MEDICAL CONTROL CONSULT NOTE Patient Name: Carly Marcelino Service Date: May 03, 2023 Referring Facility: [facility] Accepting Facility: [facility] MAIN REASON FOR TRANSPORT: Need for neurosurgical evaluation and management not available at referring facility REASON FOR CONSULT: General management CCT MEDICAL CONTROL CONSULT SUMMARY: History, physical exam findings, and available background patient information from CCT Transport Nurse were reviewed at the time of consult. Pertinent additional information was reviewed as follows: CCT transport request log In brief, Carly Marcelino is a 82 year old female with a history, known at time of consult, significant for HTN, CAD, and DVT on home eliquis and plavix who presented to [facility] for evaluation of new onset vision changes/weakness and hypertension (SBP ~ 250 mmHg. 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 Treated with multiple anti-hypertensive agents and given Andexxa at referring facility for DOAC reversal. Called by CCT team for general management with SBP 100s and regarding prophylactic AED therapy. Per discussion with CCT team she remains awake and alert, VSS on RA, with no concerns of clinical seizure activity. PLAN: Multiple factors considered including: patient history/condition/trajectory/stability, referring and receiving destinations, duration of transport time, medications and therapies available during velázquez sport, patient safety, as well as crew capabilities. Orders given for: 500 ml LR bolus, defer AED therapy to accepting facility Plan of care and orders confirmed and read back via telephone with CCT Transport reconnaissance crewmember, Kt Mccoy RN SIGNATURE: Aldo Worrell APRN.[facility] Acute Care Nurse Practitioner Critical Care Transport [facility] Evaluation + Plan note Extracted from: Title:ED Note Author:Do Montez DO Date :04/20/23 Headache (R51.9: Headache, u nspecified) Orders: morphine, 4 mg = 1 mL, Injection, IV Push, Once, Stop date 04/20/23 5:30:00 EST, STAT, Start date 04/20/23 5:30:00 EST, 04/20/23 5:30:00 EST ondansetron, 4 mg = 2 mL, Injection, IV Push, Once, Stop date 04/20/23 5:30:00 EST, STAT, Start date 04/20/23 5:30:00 EST, 04/20/23 5:30:00 EST Sodium Chloride 0.9% intravenous solution 1,000 mL, 1,000 mL, IV, 20 mL/hr, STAT, Start date 04/20/23 5:30:00 EST, 50 hour(s), Total volume (mL): 1,000 Basic Metabolic Panel CBC w/ Auto Diff CT Head or Brain w/o Contrast ECG 12 Lead Adult eGFR PT & PTT Troponin 0 Hr. Troponin 3 Hr. UA With Cult Reflex XR Chest Single View Addendum by Hank Beard DO on April 20, 2023 11:10:10 EST Patient was signed out to by the prior physician I did review full workup here in the emergency department. Patient does state that she has experienced considerable relief with the medications initially ordered by prior ER physician. However she still has 7 out of [address] angiogram of the head and neck were performed and these were essentially benign. Patient is now feeling better stating that her head pain is less than 5 out of 10 if not lower she is comfortable being discharged home at this time. She did state that she had quite a bit of stress in her life recently and wonders if this is playing a role as she has buried numerous family members in the last couple of weeks including her son. She is comfortable being discharged home at this time and does not wish to have any other additional medications or stay for any additional evaluation. [facility]02-09-2024 Hospital Discharge instructions Follow Up Care 04/20/2023 05:28:00 With:HARDEEP MCKENZIE Address: [facility] TALISHA SILVA, [facility] [address] [id number]- Business (1) When:Within 3 Day(s) [facility]02-05-2024 Evaluation note* Encounter Date Diagnosis Assessment Notes Treatment Notes Treatment Clinical Notes Apr, History of MS (myocardial infarction) (ICD-10 - I25.2) Ms Marcelino is an 82 yr old female, previously managed by [facility] (Dr Yates), pt requested transfer to [facility] cardiology. PMH significant for CAD s/p PCI to proximal RCA in November 2021, Hyperlipidemia, DVT on Eliquis, former smoker. EKG: sinus bradycardia with T wave inversions in lead II. Echo in November 2021 showed EF of 65% with normal wall motion. Grade 1 diastolic dysfunction. Mildly dilated left atrium. Mildly thickened mitral valve with mild MR and TR Assessment: CAD status post PCI to proximal RCA 11/24/2021 Stable. No angina. -Per records, her other coronaries were severely calcified but did not have any flow-limiting lesions. -Continue on Plavix and Eliquis. Discussed switching plavix to low dose ASA due to nosebleeds and given that it has been >1yr since stent placement however pt prefers to remain on both. -Continue metoprolol 12.5mg BID and pravastatin 20 mg daily. -Aggressive risk factor modification Hypertension. Above goal - Pt had cough with increased Lisinopril dose. Will switch to Losartan 25mg daily. -Continue toprol 12.5mg BID Hyperlipidemia. Lipid panel 11/16/2022: Total cholesterol 149, HDL 43, LDL 81, triglycerides 93 -Continue pravastatin 20 mg daily History of DVT. Continue Eliquis 5 mg twice daily RTC in 6 weeks for BP follow up Apr, Essential (primary) hypertension (ICD-10 - I10) Apr, Hyperlipidemia, unspecified hyperlipidemia type (ICD-10 - E78.5) Apr, History of DVT (deep vein thrombosis) (ICD-10 - Z86.718) [employer] Other 01-31-2024 Evaluation note* Encounter Date Diagnosis Assessment Notes Treatment Notes Treatment Clinical Notes Mar, History of MS (myocardial infarction) (ICD-10 - I25.2) [employer] [employer] Other 12-04-2023 Evaluation note* Encounter Date Diagnosis Assessment Notes Treatment Notes Treatment Clinical Notes Feb, History of MS (myocardial infarction) (ICD-10 - I25.2) Ms Marcelino is an 82 yr old female, previously managed by [facility] (Dr Yates), pt requested transfer to [facility] cardiology. PMH significant for CAD s/p PCI to proximal RCA in November 2021, Hyperlipidemia, DVT on Eliquis, former smoker. EKG: sinus bradycardia with T wave inversions in lead II.Echo in November 2021 showed EF of 65% with normal wall motion. Grade 1 diastolic dysfunction. Mildly dilated left atrium. Mildly thickened mitral valve with mild MR and TR Assessment: CAD status post PCI to proximal RCA 11/24/2021 Stable. No angina. -Per records, her other coronaries were severely calcified but did not have any flow-limiting lesions. -Continue on Plavix and Eliquis. Discussed switching plavix to low dose ASA due to nosebleeds and given that it has been >1yr since stent placement however pt prefers to remain on both. -Continue metoprolol 12.5mg BID and pravastatin 20 mg daily. -Aggressive risk factor modification Hypertension. Above goal - Will increase Lisinopril to 5mg BID. -Continue toprol 12.5mg BID Hyperlipidemia. Lipid panel 11/16/2022: Total cholesterol 149, HDL 43, LDL 81, triglycerides 93 -Continue pravastatin 20 mg daily History of DVT. 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 PMH significant for CAD s/p PCI to proximal RCA in November 2021, Hyperlipidemia, DVT on Eliquis, former smoker. She presents today to establish care. EKG today shows sinus bradycardia with T wave inversions in lead II.Echo in November 2021 showed EF of 65% with normal wall motion. Grade 1 diastolic dysfunction. Mildly dilated left atrium. Mildly thickened mitral valve with mild MR and TR Assessment: CAD status post PCI to proximal RCA 11/24/2021 Stable. No angina. -Per records, her other coronaries were severely calcified but did not have any flow-limiting lesions. -Continue on Plavix and Eliquis. -Continue metoprolol once daily and pravastatin 20 mg daily. -Aggressive risk factor modification Hypertension. Above goal -Advised to keep BP log for 3 weeks -Continue current doses of lisinopril and metoprolol. Will uptitrate if above goal with home monitoring. Hyperlipidemia. Lipid panel 11/16/2022: Total cholesterol 149, HDL 43, LDL 81, triglycerides 93 -Continue pravastatin 20 mg daily History of DVT. Continue Eliquis 5 mg twice daily RTC in 3 weeks Jan, Essential (primary) hypertension (ICD-10 - I10) Jan, Hyperlipidemia, unspecified hyperlipidemia type (ICD-10 - E78.5) Jan, History of DVT (deep vein thrombosis) (ICD-10 - Z86.718) [employer] Other 10-26-2023 Evaluation note* Encounter Date Diagnosis Assessment Notes Treatment Notes Treatment Clinical Notes Dec, Encounter for screening mammogram for breast cancer (ICD-10 - Z12.31) [employer] Other 08-29-2023 Evaluation note* Encounter Date Diagnosis Assessment Notes Treatment Notes Treatment Clinical Notes Oct, Carotid stenosis, bilateral (ICD-10 - I65.23) We reviewed today's carotid duplex studies which by velocities show less than 50% stenosis on the right and 50 to 69% stenosis on the left. She remains asymptomatic with occlusive disease and on good medical therapy with use of Plavix, Eliquis, and statin medication daily. We reviewed the signs and symptoms of carotid occlusive disease and when would be appropriate to return for further evaluation prior to her next scheduled appointment. We will continue to follow her along on a routine basis and have her back again next year with repeat studies. She knows to call us in the meantime with any issues or concerns. 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 Instructed on motion and strengthening exercises, these were demonstrated. Activity as tolerated. Call with questions/concerns. [employer] Other 08-23-2023 Evaluation note* Encounter Date Diagnosis Assessment Notes Treatment Notes Treatment Clinical Notes Oct, Chronic pain due to injury (ICD-10 - G89.21) [employer] Other 07-17-2023 Evaluation note* Encounter Date Diagnosis Assessment Notes Treatment Notes Treatment Clinical Notes Sep, Chronic pain due to injury (ICD-10 - G89.21) Lengthy 35+ minute discussion with patient today regarding her concerns. I really think that we could trial increasing the gabapentin. I feel this could very well improve her symptoms. She has been on this dose now for quite some time. She voices agreement and understanding will call with results. Sep, Essential (primary) hypertension (ICD-10 - I10) Excellent control seen here today, therefore no change. Sep, Other The goal of hypertension as always to have a blood pressure within acceptable limits, with patient staying compliant with medication. Increased activity, monitoring diet, and weight loss are always encouraged. [employer] Other 05-26-2023 Evaluation + Plan noteExtracted from: Title:Discharge Note Author:Barrett Bales DO Date:08/04/22 Discharge Status: Improved Discharge Instructions Given: To patient Discharge disposition: Home Prescriptions reviewed with Patient Patient >30 min spent on Discharge time and education Discharge To, Anticipated II - Home with responsible caregiver Discharged to - Home independently Discharge Diet(s): Fat Modified- Low cholesterol, Low Sodium- No added salt (08/04/22 10:23:00) Prescriptions Eliquis 2.5 mg oral tablet, 5 mg= 2 tab(s), Oral, BID, 5 refills famotidine 40 mg Tab, 40 mg= 1 tab(s), Oral, Daily ferrous sulfate 325 mg Tab, 325 mg= 1 tab(s), Oral, Daily lisinopril 2.5 mg Tab, 2.5 mg= 1 tab(s), Oral, Daily metoprolol 25 mg ER Tab, 12.5 mg= 0.5 tab(s), Oral, Daily Home acetaminophen 325 mg Tab, 650 mg= 2 tab(s), Oral, q6hr, PRN baclofen, 5 mg, Oral, Bedtime clopidogrel 75 mg Tab, 75 mg= 1 tab(s), Oral, Daily Fish Oil, 1 cap(s), Oral, Bedtime gabapentin 300 mg Cap, 300 mg= 1 cap(s), Oral, TID magnesium oxide 400 mg Tab, 400 mg= 1 tab(s), Oral, Bedtime montelukast 10 mg Tab, 10 mg= 1 tab(s), Oral, Daily Multivitamins and Minerals oral tablet potassium chloride 20 mEq ER Tab, 40 mEq= 2 tab(s), Oral, Once Zyrtec, 10 mg, Oral, Daily, PRN With When Contact Information HARDEEP MCKENZIE 08/17/2022 11:30 AM EDT [address], [address] [place] [id number] [facility] (1) Additional Instructions: Weakness, [id number] Dehydration, Elderly, [id number] Extracted from: Title:SOAP Note: Simple Author:Jose VICTOR, Chandan P Date:08/04/22 Impression and Plan PATIENT DID NOT TOLERATE NEW MEDICAL REGIMEN FROM RECENT OV SHE HAS NO CHF (NO DYSPNEA OR PULMONARY EDEMA) , HENCE DOES NOT NEED DIURETICS HAS MILD HTN, FEELS WORSE ON INCREASED RX REC: RESTORE PRIOR REGIMEN TODAY I TOLD HER WE WOULD NOT CONTINUE BUMEX (DUE TO HER VOCIFEROUS COMPLAINTS) OK TO DISCHARGE AFTER ASSESSED BY PT/OT Extracted from: Title:APSO Note Author:Javier PORTILLO Date:08/03/22 1. AMS (altered mental statu s) (R41.82: Altered mental status, unspecified) ? TIA vs med inducted vs multifactorial CT of the head in the ED was negative MRI of the brain is negative for acute findings. Neurology consult deferred w/negative results. I did speak to . No need for consultation. Continue Plavix, Eliquis. 2. Weakness (R53.1: Weakness) Likely multifactorial from dehydration, LALY, recent increase in cardiac meds (diuretics/BP) PT/OT to eval, treat and make recommendations. UA and chest x-ray are negative See #1 3. Acute renal failure (N17.9: Acute kidney failure, unspecified) Resolved with IV fluids and holding diuretics 4. Dehydration (E86.0: Dehydration) Resolved with IV fluids Taking p.o. well now. 5. Hyponatremia (E87.1: Hypo-osmolality and hyponatremia) Likely secondary to dehydration and diuretics Urine and serum osmole's normal 6. Hypokalemia (E87.6: Hypokalemia) Improved but required additional dosing of potassium today. Trend labs and replace as necessary. 7. CAD (coronary artery disease) (I25.10: Atherosclerotic heart disease of [place] coronary artery without angina pectoris) History of mild pulmonary hypertension Consult [facility] cardiology group. Per Dr Garcia continue at d/c Bumex 2 mg daily, lisinopril 2.5 and Metoprolol 25mg ER daily. Stop Metolazone and Atorvastatin Consult cardiology appreciated. 8. Hyperlipidemia (E78.5: Hyperlipidemia, unspecified) Discontinue rosuvastatin 9. HTN (I10: Essential (primary) hypertension) Continue metoprolol for now Resume Lisinoprill at 2.5 mg daily. Resume Bumex 2mg daily Stop Metolazone 10. Obesity (E66.9: Obesity, unspecified) BMI 30.04 Also on diet, exercise, weight loss and lifestyle modifications. 11. Lymphedema (I89.0: Lymphedema, not elsewhere classified Bumex 12. History of DVT in adulthood (Z86.718: Personal history of other venous thrombosis and embolism) Eliquis 5 mg twice daily Extracted from: Title:SOAP Note: Simple Author:Jose VICTOR, Chandan Cortez Date:08/03/22 Impression and Plan CONSULT DICTATED DISCUSSED WITH CLAUDIA PALACIOS TO DISCHARGE ON MODIFIED MEDICAL REGIMEN Extracted from: Title:APSO Note Author:Javier PORTILLO Date:08/02/22 1. AMS (altered mental statu s) (R41.82: Altered mental status, unspecified) Patient reported this occurred prior to admission at home while she was doing her checkbook she became suddenly confused and realized that she could not add or finish her check which she had been able to do for years. States that she forgot to how to fill it out correctly. Had pain up the left side of her neck into the back of her head this lasted for several seconds and resolved. ? TIA versus CVA CT of the head in the ED was negative MRI of the brain is pending Neurology consult pending results of MRI. I did discuss this with Dr. Romero if MRI is positive we will consult 2. Weakness (R53.1: Weakness) Likely multifactorial from dehydration, LALY, recent increase in cardiac meds (diuretics/BP) PT/OT to eval, treat and make recommendations. UA and chest x-ray are negative See #1 3. Acute renal failure (N17.9: Acute kidney failure, unspecified) Resolved with IV fluids and holding diuretics 4. Dehydration (E86.0: Dehydration) Resolved with IV fluids Taking p.o. well now. 5. Hyponatremia (E87.1: Hypo-osmolality and hyponatremia) Likely secondary to dehydration and diuretics Urine and serum osmole's normal 6. Hypokalemia (E87.6: Hypokalemia) Improved but required additional dosing of potassium today. Trend labs and replace as necessary. 7. CAD (coronary artery disease) (I25.10: Atherosclerotic heart disease of [place] coronary artery without angina pectoris) History of mild pulmonary hypertension follows with [facility] cardiology group-recently seen Dr. Tobias with changes to medications on 07/25. Patient was started on Bumex 2 mg daily, metolazone 2.5 mg daily. And lisinopril was increased from 2.5 daily to 10 mg daily. In atorvastatin was changed to rosuvastatin due to leg cramping. 8. Hyperlipidemia (E78.5: Hyperlipidemia, unspecified) Continue rosuvastatin 9. HTN (I10: Essential (primary) hypertension) Continue metoprolol for now Hold lisinopril, metolazone and Bumex 10. Obesity (E66.9: Obesity, unspecified) BMI 30.04 Also on diet, exercise, weight loss and lifestyle modifications. 11. Lymphedema (I89.0: Lymphedema, not elsewhere classified) Patient reports this is chronic since bilateral knee replacements. Has been on Bumex since that time. Hold Bumex for now. 12. History of DVT in adulthood (Z86.718: Personal history of other venous thrombosis and embolism) Eliquis 5 mg twice daily Orders: potassium chloride, 40 mEq = 2 tab(s), Tab-ER, Oral, Once, Stop date 08/02/22 9:00:00 EDT, Routine, Start date 08/02/22 9:00:00 EDT, 08/02/22 8:40:00 EDT MRI Brain w/o Contrast Extracted from: Title:Admission H & P Author:Chidi Marrero MD ate:08/01/22 1. Weakness (R53.1: Weakness ) I wonder if the patient is having muscle weakness and pain due to statin given that she had similar symptoms on atorvastatin. I will hold her statins and monitor for now. Consider switching to Zetia. Also might be due to dehydration and electrolyte derangements Obtain PT OT 2. CAD (coronary artery disease) (I25.10: Atherosclerotic heart disease of [place] coronary artery without angina pectoris) No chest pain. Status post PCI in November 2021. Continue on Plavix, off aspirin due to to being on Eliquis secondary to DVT. Continue beta-rudi. No statin due to the above. 3. History of DVT in adulthood (Z86.718: Personal history of other venous thrombosis and embolism) Continue Eliquis 5 mg twice daily 4. Hyperlipidemia (E78.5: Hyperlipidemia, unspecified) Holding statin, consider Zetia 5. Hypokalemia (E87.6: Hypokalemia) We will replace, we will check magnesium level 6. Dehydration (E86.0: Dehydration) Start patient on IV fluids 7. Acute renal failure (N17.9: Acute kidney failure, unspecified) Baseline creatinine around 0.8. Present with creatinine of 1.2. Obtain urine sodium and creatinine to calculate FENa Most likely due to diuretics and dehydration. Start patient on IV fluids and monitor 8. Hyponatremia (E87.1: Hypo-osmolality and hyponatremia) Assuming due to dehydration. I will obtain serum and urine osmolality as well as urine sodium 9. HTN (I10: Essential (primary) hypertension) Blood pressure in the ED was acceptable. Patient reported being hypotensive on lisinopril 10 mg. I will hold lisinopril for now, continue Toprol-XL. Orders: acetaminophen, 650 mg = 2 tab(s), Tab, Oral, q6hr PRN Pain, Routine, Start date 08/01/22 20:58:00 EDT, 08/01/22 20:58:00 EDT apixaban, 5 mg = 2 tab(s), Tab, Oral, BID, Routine, Start date 08/02/22 9:00:00 EDT, 08/01/22 21:26:00 EDT baclofen, 5 mg = 0.5 tab(s), Tab, Oral, Bedtime, Routine, Start date 08/01/22 21:00:00 EDT, 08/01/22 20:59:00 EDT clopidogrel, 75 mg = 1 tab(s), Tab, Oral, Daily, Routine, Start date 08/02/22 9:00:00 EDT, 08/01/22 20:59:00 EDT famotidine, 40 mg = 2 tab(s), Tab, Oral, Daily, Routine, Start date 08/02/22 9:00:00 EDT, 08/01/22 21:00:00 EDT ferrous sulfate, 325 mg = 1 tab(s), Tab, Oral, Daily, Routine, Start date 08/02/22 9:00:00 EDT, 08/01/22 21:00:00 EDT gabapentin, 300 mg = 1 cap(s), Cap, Oral, TID, Routine, Start date 08/01/22 22:00:00 EDT, 08/01/22 21:00:00 EDT magnesium oxide, 400 mg = 1 tab(s), Tab, Oral, Bedtime, Routine, Start date 08/01/22 21:00:00 EDT, 08/01/22 21:00:00 EDT metoprolol, 12.5 mg = 0.5 tab(s), Tab-ER, Oral, Daily, Routine, Start date 08/02/22 9:00:00 EDT, 08/01/22 21:00:00 EDT montelukast, 10 mg = 1 tab(s), Tab, Oral, Daily, Routine, Start date 08/02/22 9:00:00 EDT, 08/01/22 21:00:00 EDT Sodium Chloride 0.9% intravenous solution 1,000 mL, 1,000 mL, IV, 75 mL/hr, Routine, Start date 08/01/22 21:04:00 EDT, 13.3 hour(s), Total volume (mL): 1,000, 83 kg, 1.98, m2 Aldolase Basic Metabolic Panel Cardiac Diet Cardiac Monitoring CBC w/ Auto Diff Creatine Kinase Creatinine Urine Notify Provider Vital Signs Notify Provider Vital Signs Occupational Therapy Evaluate Patient, Develop a Plan of Care and Implement Plan Osmolality Osmolality Urine Physical Therapy Evaluate Patient, Develop a Plan of Care and Implement Plan Place in Status Sodium Level Urine Vital Signs Weight Extracted from: Title:ED Note Author:Hank Beard DO Date:07/11 06/01 Dehydration (E86.0: Dehydrat ion) Hypokalemia (E87.6: Hypokalemia) Hypotension (I95.9: Hypotension, unspecified) Weakness (R53.1: Weakness) Orders: potassium chloride, 40 mEq = 2 tab(s), Tab-ER, Oral, Once, Stop date 08/01/22 18:32:00 EDT, STAT, Start date 08/01/22 18:32:00 EDT, 08/01/22 18:32:00 EDT Sodium Chloride 0.9% intravenous solution 1,000 mL, 1,000 mL, IV, 1,000 mL/hr, STAT, Start date 08/01/22 18:31:00 EDT, 1 hour(s), Total volume (mL): 1,000, 83 kg, 1.98, m2 Sodium Chloride 0.9% with KCl 40 mEq/l 1,000 mL, 1,000 mL, IV, 250 mL/hr, STAT, Start date 08/01/22 18:31:00 EDT, 4 hour(s), Total volume (mL): 1,000, 83 kg, 1.98, m2 Automated Diff Basic Metabolic Panel CBC w/ Auto Diff [place] Stroke Scale Communication Order Physician to Nursing Continuous Pulse Oximetry CT Head or Brain w/o Contrast ED Cardiac Monitoring eGFR Oxygen Therapy PT & PTT Routine Capillary Glucose POC Saline Lock Insert Stroke Quality Measures Troponin 0 Hr. TSH With T4fr Reflex UA With Cult Reflex Vital Signs XR Chest Single View Future Scheduled Tests Laboratory* Basic Metabolic Panel 12/03/21 [facility]05-26[facility]Comment on [facility]:Result Comment: Electronically Signed By: Barrett Bales DO.chepe\Date and Time Signed: 08/04/22 10:55 [id number] Hospital Discharge instructions Patient Education 08/04/2022 10:39:31 Weakness, Zaqw-ju-Mioe Weakness Weakness is a lack of strength. You may feel weak all over your body (generalized), or you may feelweak in one part of your body (focal). There are many potential causes of weakness. Sometimes, the cause of your weakness may not be known. Some causes of weakness can be serious, so it is important to see your doctor. Follow these instructions at home: Activity Rest as needed. Try to get enough sleep. Most adults need 7 8 hours of sleep each night. Talk to your doctor about how much sleep you need. Do exercises, such as arm curls and leg raises, for 30 minutes at least 2 days a week or as told byyour doctor. Think about working with a physical therapist or marine mammal trainer to help you get stronger. General instructions Take igvs-yjo-jryjkik and prescription medicines only as told by your doctor. Eat a healthy, well-balanced diet. This includes: ?Proteins to build muscles, such as lean meats and fish. ?Fresh fruits and vegetables. ?Carbohydrates to boost energy, such as whole grains. Drink enough fluid to keep your pee (urine) pale yellow. Keep all follow-up visits. Contact a doctor if: Your weakness does not get better or it gets worse. Your weakness affects your ability to: ?Think clearly. ?Do your normal daily activities. Get help right away if: You have sudden weakness on one side of your face or body. You have chest pain. You have trouble breathing or shortness of breath. You have problems with how you see (vision). You have trouble talking or swallowing. You have trouble standing or walking. You are light-headed or faint. These symptoms may be an emergency. Get help right away. Call 911. Do not wait to see if the symptoms will go away. Do not drive yourself to the hospital. Summary Weakness is a lack of strength. You may feel weak all over your body or just in one part of your body. There are many potential causes of weakness. Sometimes, the cause of your weakness may not be known. Rest as needed, and try to get enough sleep. Most adults need 7 8 hours of sleep each night. Eat a healthy, well-balanced diet. This information is not intended to replace advice given to you by your health care provider. Make sure you discuss any questions you have with your health care provider. Document Revised: 01/29/2022 Document Reviewed: 01/29/2022 [employer] Patient Education 2022 [employer]. 08/04/2022 10:39:31 Dehydration, Elderly, Ejcj-fr-Irad Dehydration, Elderly Dehydration is condition in which there is not enough water or other fluids in the body. This happens when a person loses more fluids than he or she takes in. Important body parts cannot work right without the right amount of fluids. Any loss of fluids from the body can cause dehydration. People 65 years of age or older have a higher risk of dehydration than younger adults. This is because in older age, the body: Is less able to keep the right amount of water. Does not respond to temperature changes as well. Does not get a sense of thirst as easily or quickly. Dehydration can be mild, worse, or very bad. It should be treated right away to keep it from getting very bad. What are the causes? This condition may be caused by: Conditions that cause loss of water or other fluids, such as: ?Watery poop (diarrhea). ?Vomiting. ?Sweating a lot. ?Peeing (urinating) a lot. Not drinking enough fluids, especially when you: ?Are ill. ?Are doing things that take a lot of energy to do. Other illnesses and conditions, such as fever or infection. Certain medicines, such as medicines that take extra fluid out of the body (diuretics). Lack of safe drinking water. Not being able to get enough water and food. What increases the risk? The following factors may make you more likely to develop this condition: Having a long-term (chronic) illness that has not been treated the right way, such as: ?An illness that may cause you to pee more, such as diabetes. ?Kidney, heart, or lung disease. ?A condition such as dementia. This affects: ?The brain and nervous system. ?Thinking. ?Feelings. Being 65 years of age or older. Having a disability. Living in a place that is high above the ground or sea (high in altitude). The thinner, drier take off tender air causes more fluid loss. What are the signs or symptoms? Symptoms of dehydration depend on how bad it is. Mild or worse dehydration Thirst. Dry lips or dry mouth. Feeling dizzy or light-headed, especially when you stand up from sitting. Muscle cramps. Your body making: ?Dark pee (urine). Pee may be the color of tea. ?Less pee than normal. ?Less tears than normal. Headache. Very bad dehydration Changes in skin. Skin may: ?Be cold to the touch (clammy). ?Be blotchy or pale. ?Not go back to normal right after you lightly pinch it and let it go. Little or no tears, pee, or sweat. Changes in vital signs, such as: ?Fast breathing. ?Low blood pressure. ?Weak pulse. ?Pulse that is more than 100 beats a minute when you are sitting still. Other changes, such as: ?Feeling very thirsty. ?Eyes that look hollow (sunken). ?Cold hands and feet. ?Being mixed up (confused). ?Being very tired (lethargic) or having trouble waking from sleep. ?Short-term weight loss. ?Loss of consciousness. How is this treated? Treatment for this condition depends on how bad it is. Treatment should start right away. Do not wait until your condition gets very bad. Very bad dehydration is an emergency. You will need to go to a hospital. Mild or worse dehydration can be treated at home. You may be asked to: ?Drink more fluids. ?Drink an oral rehydration solution (ORS). This drink helps get the right amounts of fluids and salts and minerals in the blood (electrolytes). Very bad dehydration can be treated: ?With fluids through an IV tube. ?By getting normal levels of salts and minerals in your blood. This is often done by giving salts and minerals through a tube. The tube is passed through your nose and into your stomach. ?By treating the root cause. Follow these instructions at home: Oral rehydration solution If told by your doctor, drink an ORS: Make an ORS. Use instructions on the package. Start by drinking small amounts, about cup (120 mL) every 5 10 minutes. Slowly drink more until you have had the amount that your doctor said to have. Eating and drinking Drink enough clear fluid to keep your pee pale yellow. If you were told to drink an ORS, finish theORS first. Then, start slowly drinking other clear fluids. Drink fluids such as: ?Water. Do not drink only water. Doing that can make the salt (sodium) level in your body get too low. ?Water from ice chips you suck on. ?Fruit juice that you have added water to (diluted). ?Low-calorie sports drinks. Eat foods that have the right amounts of salts and minerals, such as: ?Bananas. ?Oranges. ?Potatoes. ?Tomatoes. ?Spinach. Do not drink alcohol. Avoid: ?Drinks that have a lot of sugar. These include: ?High-calorie sports drinks. ?Fruit juice that you did not add water to. ?Soda. ?Caffeine. ?Foods that are greasy or have a lot of fat or sugar. General instructions Take zdlp-ikm-ojtmyfp and prescription medicines only as told by your doctor. Do not take salt tablets. Doing that can make the salt level in your body get too high. Return to your normal activities as told by your doctor. Ask your doctor what activities are safe for you. Keep all follow-up visits as told by your doctor. This is important. Contact a doctor if: You have pain in your belly (abdomen) and the pain: ?Gets worse. ?Stays in one place. You have a rash. You have a stiff neck. You get angry or annoyed (irritable) more easily than normal. You are more tired or have a harder time waking than normal. You feel: ?Weak or dizzy. ?Very thirsty. Get help right away if you have: Any symptoms of very bad dehydration. A fever. A very bad headache. Symptoms of vomiting, such as: ?Your vomiting gets worse or does not go away. ?Your vomit has blood or green stuff in it. ?You cannot eat or drink without vomiting. Problems with peeing or pooping (having a bowel movement), such as: ?Watery poop that gets worse or does not go away. ?Blood in your poop (stool). This may cause poop to look black and tarry. ?Not peeing in 6 8 hours. ?Peeing only a small amount of very dark pee in 6 8 hours. Trouble breathing. Symptoms that get worse with treatment. These symptoms may be an emergency. Do not wait to see if the symptoms will go away. Get medical help right away. Call your local emergency services (911 in the [place] Do not drive yourself to the hospital. Summary Dehydration is a condition in which there is not enough water or other fluids in the body. This happens when a person loses more fluids than he or she takes in. Treatment for this condition depends on how bad it is. Treatment should be started right away. Do not wait until your condition gets very bad. Drink enough clear fluid to keep your pee pale yellow. If you were told to drink an oral rehydration solution (ORS), finish the ORS first. Then, start slowly drinking other clear fluids. Take skxh-chn-hpouvhg and prescription medicines only as told by your doctor. Get help right away if you have any symptoms of very bad dehydration. This information is not intended to replace advice given to you by your health care provider. Make sure you discuss any questions you have with your health care provider. Document Revised: 10/09/2019 Document Reviewed: 10/09/2019 Elsevier Patient Education 2023 [employer]. Follow Up Care 08/01/2022 17:07:34 With:HARDEEP MCKENZIE Address: [address] [place] [address]- Business (1) When:08/17/2022 11:30:00 [facility]05-24-2023 NotePT Evaluation completed with an [facility] score of . Pt functioning at baseline level with use of Rollator walker. [facility]Result Comment: Electronically Signed By: Janes VICTOR, Chidi\.br\Date and Time Signed: 08/01/22 21:39 EDT 07-04-2022 Evaluation note* Encounter Date Diagnosis Assessment Notes Treatment Notes Treatment Clinical Notes Jun, Essential (primary) hypertension (ICD-10 - I10) [employer] Other 04-20-2023 Hospital Discharge instructions Patient Education 06/29/2022 11:47:28 Peripheral Edema Peripheral Edema Peripheral edema is swelling that is caused by a buildup of fluid. Peripheral edema most often affects the lower legs, ankles, and feet. It can also develop in the arms, hands, and face. The area of the body that has peripheral edema will look swollen. It may also feel heavy or warm. Your clothes may start to feel tight. Pressing on the area may make a temporary dent in your skin (pitting edema).You may not be able to move your swollen arm or leg as much as usual. There are many causes of peripheral edema. It can happen because of a complication of other conditions such as heart failure, kidney disease, or a problem with your circulation. It also can be a sideeffect of certain medicines or happen because of an infection. It often happens to women during . Sometimes, the cause is not known. Follow these instructions at home: Managing pain, stiffness, and swelling Raise (elevate) your legs while you are sitting or lying down. Move around often to prevent stiffness and to reduce swelling. Do not sit or stand for long periods of time. Do not wear tight clothing. Do not wear garters on your upper legs. Exercise your legs to get your circulation going. This helps to move the fluid back into your bloodvessels, and it may help the swelling go down. Wear compression stockings as told by your health care provider. These stockings help to prevent blood clots and reduce swelling in your legs. It is important that these are the correct size. These stockings should be prescribed by your doctor to prevent possible injuries. If elastic bandages or wraps are recommended, use them as told by your health care provider. Medicines Take jgkg-dky-zgsjwrh and prescription medicines only as told by your health care provider. Your health care provider may prescribe medicine to help your body get rid of excess water (diuretic). Take this medicine if you are told to take it. General instructions Eat a low-salt (low-sodium) diet as told by your health care provider. Sometimes, eating less salt may reduce swelling. Pay attention to any changes in your symptoms. Moisturize your skin daily to help prevent skin from cracking and draining. Keep all follow-up visits. This is important. Contact a health care provider if: You have a fever. You have swelling in only one leg. You have increased swelling, redness, or pain in one or both of your legs. You have drainage or sores at the area where you have edema. Get help right away if: You have edema that starts suddenly or is getting worse, especially if you are or have a medical condition. You develop shortness of breath, especially when you are lying down. You have pain in your chest or abdomen. You feel weak. You feel like you will faint. These symptoms may be an emergency. Get help right away. Call 911. Do not wait to see if the symptoms will go away. Do not drive yourself to the hospital. Summary Peripheral edema is swelling that is caused by a buildup of fluid. Peripheral edema most often affects the lower legs, ankles, and feet. Move around often to prevent stiffness and to reduce swelling. Do not sit or stand for long periodsof time. Pay attention to any changes in your symptoms. Contact a health care provider if you have edema that starts suddenly or is getting worse, especially if you are or have a medical condition. Get help right away if you develop shortness of breath, especially when lying down. This information is not intended to replace advice given to you by your health care provider. Make sure you discuss any questions you have with your health care provider. Document Revised: 10/31/2021 Document Reviewed: 10/31/2021 [employer] Patient Education 2022 [employer] 06/29/2022 10:27:25 Form - Blood Pressure Record Sheet Blood Pressure Record Sheet To take your blood pressure, you will need a blood pressure machine. You may be prescribed one, or you can buy a blood pressure machine (blood pressure monitor) at your clinic, drug store, or online.When choosing one, look for these features: An automatic monitor that has an arm cuff. A cuff that wraps snugly, but not too tightly, around your upper arm. You should be able to fit only one finger between your arm and the cuff. A device that stores blood pressure reading results. Do not choose a monitor that measures your blood pressure from your wrist or finger. Follow your health care provider's instructions for how to take your blood pressure. To use this form: Get one reading in the morning (a.m.) before you take any medicines. Get one reading in the evening (p.m.) before supper. Take at least two readings with each blood pressure check. This makes sure the results are correct.Wait 1 2 minutes between measurements. Write down the results in the spaces on this form. Repeat this once a week, or as told by your health care provider. Make a follow-up appointment with your health care provider to discuss the results. Blood pressure log Date: a.m. (1st reading) (2nd reading) p.m. (1st reading) (2nd reading) Date: a.m. (1st reading) (2nd reading) p.m. (1st reading) (2nd reading) Date: a.m. (1st reading) (2nd reading) p.m. (1st reading) (2nd reading) Date: a.m. (1st reading) (2nd reading) p.m. (1st reading) (2nd reading) Date: a.m. (1st reading) (2nd reading) p.m. (1st reading) (2nd reading) This information is not intended to replace advice given to you by your health care provider. Make sure you discuss any questions you have with your health care provider. Document Revised: 11/10/2021 Document Reviewed: 11/10/2021 [employer] Patient Education 2022 [employer]. 06/29/2022 08:27:55 Deep Vein Thrombosis Deep Vein Thrombosis Deep vein thrombosis (DVT) is a condition in which a blood clot forms in a vein of the deep venous system. This can occur in the lower leg, thigh, pelvis, arm, or neck. A clot is blood that has thickened into a gel or solid. This condition is serious and can be life-threatening if the clot travels to the arteries of the lungs and causes a blockage (pulmonary embolism). A DVT can also damage veinsin the leg, which can lead to long-term venous disease, leg pain, swelling, discoloration, and ulcers or sores (post-thrombotic syndrome). What are the causes? This condition may be caused by: A slowdown of blood flow. Damage to a vein. A condition that causes blood to clot more easily, such as certain bleeding disorders. What increases the risk? The following factors may make you more likely to develop this condition: Obesity. Being older, especially older than age 60. Being inactive or not moving around (sedentary lifestyle). This may include: ?Sitting or lying down for longer than 4 6 hours other than to sleep at night. ?Being in the hospital, or having major or lengthy surgery. ?Having any recent bone injuries, such as breaks (fractures), that reduce movement, especially in the lower extremities. ?Having recent orthopedic surgery on the lower extremities. Being , giving , or having recently given . Taking medicines that contain estrogen, such as control or hormone replacement therapy. Using products that contain nicotine or tobacco, especially if you use hormonal control. Having a history of a blood vessel disease (peripheral vascular disease) or congestive heart disease. Having a history of cancer, especially if being treated with chemotherapy. What are the signs or symptoms? Symptoms of this condition include: Swelling, pain, pressure, or tenderness in an arm or a leg. An arm or a leg becoming warm, red, or discolored. A leg turning very pale or blue. You may have a large DVT. This is rare. If the clot is in your leg, you may notice that symptoms get worse when you stand or walk. In some cases, there are no symptoms. How is this diagnosed? This condition is diagnosed with: Your medical history and a physical exam. Tests, such as: ?Blood tests to check how well your blood clots. ?Doppler ultrasound. This is the best way to find a DVT. ?CT venogram. Contrast dye is injected into a vein, and X-rays are taken to check for clots. This is helpful for veins in the chest or pelvis. How is this treated? Treatment for this condition depends on: The cause of your DVT. The size and location of your DVT, or having more than one DVT. Your risk for bleeding or developing more clots. Other medical conditions you may have. Treatment may include: Taking a blood thinner medicine (anticoagulant) to prevent more clots from forming or current clotsfrom growing. Wearing compression stockings. Injecting medicines into the affected vein to break up the clot (catheter- directed thrombolysis). Surgical procedures, when DVT is severe or hard to treat. These may be done to: ?Isolate and remove your clot. ?Place an inferior vena cava (IVC) filter. This filter is placed into a large vein called the inferior vena cava to catch blood clots before they reach your lungs. You may get some medical treatments for 6 months or longer. Follow these instructions at home: If you are taking blood thinners: Talk with your health care provider before you take any medicines that contain aspirin or NSAIDs, such as ibuprofen. These medicines increase your risk for dangerous bleeding. Take your medicine exactly as told, at the same time every day. Do not skip a dose. Do not take more than the prescribed dose. This is important. Ask your health care provider about foods and medicines that could change or interact with the way your blood thinner works. Avoid these foods and medicines if you are told to do so. Avoid anything that may cause bleeding or bruising. You may bleed more easily while taking blood thinners. ?Be very careful when using knives, scissors, or other sharp objects. ?Use an electric razor instead of a blade. ?Avoid activities that could cause injury or bruising, and follow instructions for preventing falls. ?Tell your health care provider if you have had any internal bleeding, bleeding ulcers, or neurologic diseases, such as strokes or cerebral aneurysms. Wear a medical alert bracelet or carry a card that lists what medicines you take. General instructions Take upcl-uxr-oicozlp and prescription medicines only as told by your health care provider. Return to your normal activities as told by your health care provider. Ask your health care provider what activities are safe for you. If recommended, wear compression stockings as told by your health care provider. These stockings help to prevent blood clots and reduce swelling in your legs. Never wear your compression stockings while sleeping at night. Keep all follow-up visits. This is important. Where to find more information [place] [employer]: www.heart.org Centers for Disease Control and Prevention: www.cdc.gov National Heart, Lung, and Blood [place]: www.nhlbi.nih.gov Contact a health care provider if: You miss a dose of your blood thinner. You have unusual bruising or other color changes. You have new or worse pain, swelling, or redness in an arm or a leg. You have worsening numbness or tingling in an arm or a leg. You have a significant color change (pale or blue) in the extremity that has the DVT. Get help right away if: You have signs or symptoms that a blood clot has moved to the lungs. These may include: ?Shortness of breath. ?Chest pain. ?Fast or irregular heartbeats (palpitations). ?Light-headedness, dizziness, or fainting. ?Coughing up blood. You have signs or symptoms that your blood is too thin. These may include: ?Blood in your vomit, stool, or urine. ?A cut that will not stop bleeding. ?A menstrual period that is heavier than usual. ?A severe headache or confusion. These symptoms may be an emergency. Get help right away. Call 911. Do not wait to see if the symptoms will go away. Do not drive yourself to the hospital. Summary Deep vein thrombosis (DVT) happens when a blood clot forms in a deep vein. This may occur in the lower leg, thigh, pelvis, arm, or neck. Symptoms affect the arm or leg and can include swelling, pain, tenderness, warmth, redness, or discoloration. This condition may be treated with medicines. In severe cases, a procedure or surgery may be done to remove or dissolve the clots. If you are taking blood thinners, take them exactly as told. Do not skip a dose. Do not take more than is prescribed. Get help right away if you have a severe headache, shortness of breath, chest pain, fast or irregular heartbeats, or blood in your vomit, urine, or stool. This information is not intended to replace advice given to you by your health care provider. Make sure you discuss any questions you have with your health care provider. Document Revised: 09/19/2021 Document Reviewed: 09/19/2021 [employer] Patient Education 2022 [employer]. Follow Up Care 06/27/2022 10:05:42 With:Angélica Yates Address: [facility] [address] [place] [address]- Business (1) When:07/25/2022 10:50:00 With:HARDEEP MCKENZIE Address: [address] [place] [address]- Business (1) When:07/03/2022 08:30:00 With:Keep your pending appt with Dr. Curtis Walker as prev. scheduled. 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 Patient is receiving standard dose of Eliquis. After finishing 1 week of the milligram twice daily she will go on 5 mg twice daily for 6 months after which the dose will be reduced down to 2.5 mg twice daily and she will stay on it indefinitely in the absence of major bleeds. Aspirin will be discontinued but the Plavix will continue. This was an unprovoked event. Patient is scheduled for follow-up with vascular surgery. 2 s/p PCI of the right coronary artery November 2021, other coronaries had calcification but no stenosis, ejection fraction normal. Patient has been compliant with no recurrent symptoms. Her recent episode of chest pain is unlikely to be cardiac in origin. We will continue single antiplatelet therapy with Plavix and continue high intensity statin. Aspirin will be discontinued. 3 history of cellulitis of the lower extremities which is chronic. 4 hyperlipidemia on medical therapy. Extracted from: Title:APSO Note Author:Javier PORTILLO Date:06/28/22 PLAN: 1. Chest pain (R07.9: Chest pain, unspecified) Complains of pain radiating from chest into her back--ACS ruled out with negative troponins and twelve-lead CTA of the chest to negative for PE Chest x-ray negative BNP slightly -131 not impressive for heart failure Twelve-lead EKG shows no acute changes or findings. Troponin levels negative x4. Telemetry. Consult [facility] cardiology group-patient typically follows. 2. CAD (coronary artery disease) (I25.10: Atherosclerotic heart disease of [place] coronary artery without angina pectoris) 11/2016 non-STEMI with LETICIA to RCA diastolic dysfunction, mild pulmonary hypertension, mild carotid artery disease Echo 12/01 showed normal left ventricular systolic function with an EF of 65% with stage I diastolic dysfunction and mildly dilated left atrium. Mild MR/TR and mild pulmonary hypertension Aspirin, statin, Plavix, GARRET, beta-rudi 3. Right femoral vein DVT (I82.411: Acute embolism and thrombosis of right femoral vein) Edema of lower extremity (R60.0: Localized edema) Start Eliquis 10 mg twice daily x7 days then 5 mg twice daily thereafter prescription sent to pharmacy for cost assessment. CTA chest negative. Venous duplex BLLE positive for DVT to right distal femoral SFV Patient has follow-up with Dr. Royce Douglas vascular surgeon in [place] for left lower extremity DVT 20+ years ago. Has not been on blood thinner times several years. 4. HTN (I10: Essential (primary) hypertension) Mildly hypertensive this morning. Lisinopril, metoprolol continue 5. Chronic anemia (D64.9: Anemia, unspecified) Hemoglobin baseline appears to be 11 12 stable at baseline Trend labs 6. Chronic GERD (K21.9: Gastro-esophageal reflux disease without esophagitis) PPI, Pepcid 7. Asthma (J45.909: Unspecified asthma, uncomplicated) Singulair 8. Obesity (E66.9: Obesity, unspecified) BMI 31.14 Councill on diet, exercise, weight loss and lifestyle modifications. DVT Prophylaxis: Heparin sq Disposition: Observation status will require less than 2 midnight stays for further work-up and treatment of above. Extracted from: Title:Admission H & P Author:Jr PORTILLO Date:06/27/22 PLAN: 1. Chest pain (R07.9: Chest pain, unspecified) Complains of pain radiating from chest into her back CTA of the chest to negative for PE Chest x-ray negative BNP slightly -131 not impressive for heart failure Twelve-lead EKG shows no acute changes or findings. Troponin levels currently negative x2 Telemetry. Consult [facility] cardiology group-patient typically follows. 2. CAD (coronary artery disease) (I25.10: Atherosclerotic heart disease of [place] coronary artery without angina pectoris) 11/2016 non-STEMI with LETICIA to RCA diastolic dysfunction, mild pulmonary hypertension, mild carotid artery disease Echo 12/01 showed normal left ventricular systolic function with an EF of 65% with stage I diastolic dysfunction and mildly dilated left atrium. Mild MR/TR and mild pulmonary hypertension Aspirin, statin, Plavix, GARERT, beta-rudi 3. Edema of lower extremity (R60.0: Localized edema) IV Lasix given in the ED ? new HF. CTA chest negative. Venous duplex BLLE pending. 4. HTN (I10: Essential (primary) hypertension) Was hypertensive on admission resolved with IV Lasix Lisinopril, metoprolol continue 5. Chronic anemia (D64.9: Anemia, unspecified) Hemoglobin baseline appears to be 11 12 stable at baseline Trend labs 6. Chronic GERD (K21.9: Gastro-esophageal reflux disease without esophagitis) PPI, Pepcid 7. Asthma (J45.909: Unspecified asthma, uncomplicated) Singulair 8. Obesity (E66.9: Obesity, unspecified) BMI 31.14 Councill on diet, exercise, weight loss and lifestyle modifications. DVT Prophylaxis: Heparin sq Disposition: Observation status will require less than 2 midnight stays for further work-up and treatment of above. Orders: acetaminophen, 650 mg = 2 tab(s), Tab, Oral, q6hr PRN Pain, Routine, Start date 06/27/22 17:19:00 EDT, 06/27/22 17:19:00 EDT Al hydroxide/Mg hydroxide/simethicone, 30 mL, Susp-Oral, Oral, q6hr PRN Indigestion, Routine, Start date 06/27/22 17:19:00 EDT heparin, 5,000 unit(s) = 1 mL, Injection, SubCutaneous, BID for 30 day(s), Stop date 07/27/22 20:59:00 EDT, Routine, Start date 06/27/22 21:00:00 EDT, 06/27/22 17:19:00 EDT hydrALAZINE, 10 mg = 0.5 mL, Injection, IV Push, q6hr PRN Other (see comment), Routine, Start date 06/27/22 17:19:00 EDT, 06/27/22 17:19:00 EDT ondansetron, 4 mg = 2 mL, Injection, IV Push, q6hr PRN Nausea, Routine, Start date 06/27/22 17:19:00 EDT, 06/27/22 17:19:00 EDT Ambulate with Assistance Below the Knee Intermittent Pneumatic Compression Device Cardiac Monitoring Consult to Cardiology Evaluate Need For Continued Telemetry Intake and Output Notify Provider Vital Signs Notify Provider Vital Signs Occupational Therapy Evaluate Patient, Develop a Plan of Care and Implement Plan Oxygen Protocol Physical Therapy Evaluate Patient, Develop a Plan of Care and Implement Plan Precautions Pulse Oximetry Respiratory Protocol Resuscitation Status - Full Strict Intake and Output US LE Venous Duplex Bilateral Vital Signs Weight Future Scheduled Tests Laboratory* Basic Metabolic Panel 12/03/21 [facility]04-10-2023 Evaluation note* Encounter Date Diagnosis Assessment Notes Treatment Notes Treatment Clinical Notes Jun, Chronic fatigue (ICD-10 - R53.82) Discussed with patient it is certainly reasonable to recheck labs at this time. It has been 3 months. With her new concerns, we will proceed and call her with results. Jun, Essential (primary) hypertension (ICD-10 - I10) Good control seen here today, therefore no change. Jun, Vitamin D deficiency (ICD-10 - E55.9) We will call patient with results of the blood work. Jun, Leg edema (ICD-10 - R60.0) Will hold due on duiretic due to previous HX of issues with electrlytes - will await lab results. Jun, Bruising (ICD-10 - T14.8XXA) Discussed with patient that I feel that this is really secondary to her Plavix. We will go ahead and add a PT/INR to the blood work. [employer] Other 03-10-2023 History of Present illness Narrative* Rad Ellsworth, RT(R) - 05/19/2022 2:08 PM EST Radiology Service Progress Note PATIENT NAME: Carly Marcelino DATE OF SERVICE: May 19, 2022 TIME: 2:08 PM PATIENT IDENTITY VERIFICATION COMPLETED USING TWO (2) IDENTIFIERS: Name and Date of confirmedby patient verbally. FALL SCREENING: Has the patient had 2 falls in the last year or 1 fall with injury or currently using an Ambulatory Assistive Device (Walker, Cane, Wheelchair, Crutches, etc.)? Yes, Patient High Riskfor Falls What interventions were put in place to prevent falls during this visit? Yellow Falls Risk Wristband Applied, Instructed Patient to Call for Help if Needed, Offered Assistance with Transfers/Clothing, Instructed Patient to Remain Seated (Not on Exam Table) Until Exam, Increased Observations by Caregivers, and Patient Refused Interventions/Assistance PATIENT GENDER DATA: Female. status: : No status: N/A PATIENT RELEVANT IMPLANT DATA REVIEWED: Not Applicable RADIOLOGY DEPARTMENT: General X-ray: Exam(s) Completed: Lower Extremity X- Ray(s): Foot, Right and Wt. Bearing PERIPHERAL IV DATA: Not applicable SIGNED BY: RT Kinga(R) May 19, 2022 2:08 PM documented in this encounterC[facility] History of Present illness Narrative* Hank Jauregui DPM - 05/19/2022 1:28 PM EST Patient Visit for Carly Marcelino 1940 81 year old female SUBJECTIVE: Chief Complaint: Patient presents with: Left Foot - Pain, Established Patient Pain Scales: Verbal (Numeric Rating or Visual Analog Scale) Pain Level: 10 Pain Location: Foot-Left Description: Stabbing, Throbbing, Sharp Duration Amount of Time: 1 Duration Units: Years (gotten worse) Frequency: Continuous Intervention/Comfort measure: Medication Comments: had SX on left foot, pain has increased in the last year Additional HPI: LEFT posterior heel pain x 1 year Worse with activity Worse with contact RIGHT FOOT Forefoot injury 2 months ago Contusion second toe hit on leg of bed between toes 1,2 PCP: Hardeep cMkenzie, DO PAST MEDICAL HISTORY Diagnosis Date Arterial aneurysm (HCC) left eye Asthma rare use of albuterol, controled with zafirlukast, advair Bilateral shoulder injury before 1999 working in [employer] home Cataract of left eye Cataracts, bilateral HTN (hypertension) Hyperlipidemia Lung nodule 06/2015 Macular degeneration DESTINY (obstructive sleep apnea) s/p pharyngoplasty no cpap Pseudophakia of right eye Current Outpatient Medications Medication Sig montelukast (SINGULAIR) 10 mg tablet Take 10 mg by mouth once daily. omega 6-ktu-noo-fish oil (FISH OIL) 100-160-1,000 mg cap Take by mouth. Walker misc front wheeled walker dx left knee hematoma, Print Requisition, Compound multivitamin (MULTIPLE VITAMINS ORAL) Refill(s) 0 baclofen (LIORESAL) 10 mg tablet Baclofen Baclofen Active 5 MG Oral Daily at bedtime August 01, 20173:16pm 08-01-2017 [facility] ([id number]) cetirizine 10 mg ODT Cetirizine Cetirizine Active 10 MG Oral Daily August 01, 2017 3:16pm [id number] ([id number]) Cholecalciferol, Vitamin D3, (VITAMIN D-3) 2,000 unit cap Take by mouth once daily. docusate sodium (COLACE) 100 mg capsule Take 100 mg by mouth once daily. as needed magnesium oxide 400 mg cap Take by mouth once daily. triamterene-hydrochlorothiazide (DYAZIDE) 37.5-25 mg per capsule Take 1 capsule by mouth once daily. Vitamin E, dl, acetate, 1,000 unit capsule Take 1,000 Units by mouth once daily. B Complex Vitamins capsule Take 1 capsule by mouth once daily. losartan (COZAAR) 100 mg tablet Take 100 mg by mouth once daily. gabapentin (NEURONTIN) 300 mg capsule Take 300 mg by mouth three times daily. No current facility-administered medications for this visit. ALLERGIES Allergen Reactions Hydantoins Anaphylaxis throat swells ,hives Phenytoin Anaphylaxis Adhesive Tape (Callie* Rash Carbamazepine Itching Tegretal caused itching Divalproex Sodium Other: See Comments Fine motor tremors Dulera [Mometasone-* Intolerance Falls Environmental [Othe* oseguera,perfumes,molds Valproic Acid Analo* tremors Amlodipine Unknown intolterance Labetalol Unknown Intolerance Nifedipine Unknown intolerance Valproic Acid Unknown Other reaction(s): AOF PAST SURGICAL HISTORY Procedure Laterality Date EXCISION CHE NEUROMA EACH x3 LASER SURGERY OF EYE 2002 correction of arterial hemmorhage left eye PAST SURGICAL HISTORY OF 1968,93 breast bx PAST SURGICAL HISTORY OF 2000 L3-5 laminectomy PAST SURGICAL HISTORY OF bilateral heal spurs PAST SURGICAL HISTORY OF Left 01/20/15 left total reverse shoulder surgery PAST SURGICAL HISTORY OF Right 09/29/15 right total reverse shoulder surgery PHARYNGOPLASTY (RECONSTRUCTION PHARYNX) 2002 d/t DESTINY REMV CATARACT EXTRACAP,INSERT LENS Right SCREENING COLONSCOPY NOT HIGH RISK 2010 TONSILLECTOMY HX 2003 TOTAL KNEE REPLACEMENT 2004 bilateral kneee FAMILY HISTORY Problem Relation Age of Onset Breast Cancer Mother with mets Cataract Mother Cancer Father prostate with bone mets Cataract Father Cancer Brother colon; survivor x 10 yrs thus far. doing well Cataract Brother No Ocular Disease No Family History nothing known of Social History Tobacco Use Smoking status: Former Packs/day: 0.50 Years: 10.00 Pack years: 5.00 Types: Cigarettes Quit date: 1976 Years since quittin.2 Smokeless tobacco: Never Vaping Use Vaping Use: Never used Substance Use Topics Alcohol use: Yes Comment: socially wine, beer Drug use: No Comment: denies tx for drug/alcohol abuse in the past. Tobacco Use: 0.5 packs/day, for 10 years. Quit 03/12/1976. Types: Cigarettes REVIEW OF SYSTEMS: The remainder of the ROS was reviewed with the patient and is negative except as noted. GENERAL: denies fever or chills CARDIOVASCULAR: Denies current chest pain or SOB (shortness of breath) OBJECTIVE: General: Pleasant in no acute distress Lower extremity exam: Vascular exam: Normal vascular exam, palpable pluses with brisk capillary fill Neurological exam: Normal neurological exam, gross epicritic sensation intact Dermatological exam: Dystrophic toenails Normal exam without rashes or lesions of skin. No evidence of evidence of petechiae, purpura, telangiectasia Musculoskeletal exam: LEFT posterior heel tenderness to palpation consistent with enthesopathy Achilles tendon Arthrodesis talo calcaneal joint and talo navicular joint solid and in good alignment No significant effusion Achilles tendon Manual muscle strength evaluation intact Arch maintained with mechanical load from plantar RIGHT FOOT Mild ecchymosis RIGHT forefoot Tenderness to palpation proximal phalanx second toe suggestive of fracture , consistent with history of contusion No other significant findings LABS: Most recent labs reviewed LABORATORY STUDIES: Recent Labs 05/03/16 1105 WSR 32* CRP 0.7 X-ray LEFT FOOT : retro calcaneal exostosis , posterior heel spur Solid arthrodesis talo calcaneal joint and talo navicular joint with screw fixation RIGHT FOOT X-ray essentially normal without evidence of fracture ASSESSMENT: S90.31XA Contusion of right foot, initial encounter (primary encounter diagnosis) M77.8 Enthesopathy of foot M76.62 Tendonitis, Achilles, left M77.32 Calcaneal spur of left foot PLAN: Explained to the patient etiology and treatment plan. Treatment options discussed at length RIGHT FOOT will observe for now If not improved recommend follow up and further work up LEFT FOOT Achilles tendon enthesopathy We scheduled for physical therapy for medically necessary rehabilitation. Patient to call if any problems or concerns arise. All questions answered with regard to the plan to participate in Physical Therapy. We will coordinate and manage care in conjunction with physical therapy. We attempted an AirHeel device LEFT patient declined use All questions were answered. Carly Marcelino appeared to be well informed. Greater than 50% of the visit was spent face to face counseling and/or coordinating care for the patient. Hank Jauregui DPM * Hank Jauregui DPM - 05/19/2022 1:12 PM EST z documented in this encounterCincinnati [facility]03-10-2023 History of Present illness Narrative* RT Abhijit(R) - 05/19/2022 12:56 PM EST Radiology Service Progress Note PATIENT NAME: Carly Marcelino DATE OF SERVICE: May 19, 2022 TIME: 12:56 PM PATIENT IDENTITY VERIFICATION COMPLETED USING TWO (2) IDENTIFIERS: Name and Date of confirmedby patient verbally. FALL SCREENING: Has the patient had 2 falls in the last year or 1 fall with injury or currently using an Ambulatory Assistive Device (Walker, Cane, Wheelchair, Crutches, etc.)? No PATIENT GENDER DATA: Female. status: : No status: NO. PATIENT RELEVANT IMPLANT DATA REVIEWED: Not Applicable RADIOLOGY DEPARTMENT: General X-ray: Exam(s) Completed: Lower Extremity X- Ray(s): Foot, Left and Wt. Bearing PERIPHERAL IV DATA: Not applicable SIGNED BY: RT Abhijit(R) May 19, 2022 12:56 PM documented in this encounterCincinnati [facility]03-09-2023 NoteCONSULTATION CONSULTATION DATE: 05/18/2022 HISTORY OF PRESENT ILLNESS: This is a very active, 81-year-old female who returns to the clinic status post caudal epidural steroid injection completed on 04/25/2022. The patient received 100% relief which is ongoing. She is currently going through cardiac rehab, as she had an MS in November of 2021. Overall, she feels that she is doing well. Baseline pain is 3/10 today. She is inquiring about aqua therapy today. Medications include Plavix, baclofen and gabapentin. Patient's REVIEW OF SYSTEMS / PAST MEDICAL HISTORY / ALLERGIES and IMAGES have been reviewed and noted on the chart. PHYSICAL EXAM: VITAL SIGNS: Blood pressure 184/76, heart rate is 62. Temperature is 97.7. She is 67 tall and weighs 85 kg. GENERAL IMPRESSION: Pleasant, appropriate, in no acute distress. FOCUSED EXAM - BACK: Range of motion is guarded in lateral rotation and flexion/extension. Paravertebral muscles are non-spasmodic. Silvana's point is non-tender bilaterally. Mild spinal axial pain noted along the L4-5, S1 facets bilaterally with pain diffuse across the buttock. MUSCULOSKELETAL: Diffuse muscle atrophy noted to bilateral lower extremities. Patient does walk unassisted but with a stable, antalgic gait. NEUROLOGICAL: Radicular sensory is intact. Negative polyneuropathy. DIAGNOSIS: Lumbar radiculitis, lumbar degenerative disc disease. PLAN: No medication changes today. We will write for aqua therapy 2-3 times a week for 6-8 weeks. Patient will call when she would like to return to the Pain Clinic. All questions answered.[facility] [id number] Note CONSULTATION PROCEDURE DATE: 04/11/2022 PREOPERATIVE DIAGNOSIS: Spasming of the gastrocsoleus muscle bilaterally. POSTOPERATIVE DIAGNOSIS: Spasming of the gastrocsoleus muscle bilaterally. PROCEDURE: Trigger point injection gastrocsoleus muscle bilaterally. Subsequent to obtaining informed consent, the patient was placed in the lateral position. Alcohol prep was used to sterilize the site. A 25 gauge needle was advanced and it comes to rest along the trigger zones identified. Negative aspiration. Marcaine 0.125% along with Kenalog 10 mg are placed to each site. Negative heme. The patient tolerates the procedure well, without any overt complication, will be followed up in the office.[facility] [id number] NoteCONSULTATION CONSULTATION DATE: 04/11/2022 HISTORY OF PRESENT ILLNESS: This is an 81-year-old female, who is well known to the Pain Clinic. The patient is having bilateral knee pain. The patient has been attending cardiac rehab where they have been fairly aggressive with her. She states the walking on the treadmill has been increasing the pain in her legs. She also describes pain radiating from her low back into her legs bilaterally. It is along the L5-S1 distribution. The patient had significant cellulitic changes in her legs bilaterally. She describes the knee pain as an achy, sharp pain. Activities such as twisting, pushing, walking, lifting, bending, climbing stairs, activities aggravate the patient's pain. Sitting mitigates the pain. The patient is a very active, very vivacious, 81-year-old female. The patient currently takes Tylenol for her pain and cannot take any NSAIDs given the fact that the patient is on Plavix secondary to a recent cardiac stent placement. The patient takes gabapentin and baclofen 5 mg h.s. The patient ambulates with a cane. The patient's legs are swollen, has difficulty bending it. The patient is under the care of Dr. Mckenzie, who has given her a topical ointment to help with the cellulitic changes. The patient's PAST MEDICAL HISTORY / SURGICAL HISTORY / REVIEW OF SYSTEMS are noted on the chart, along with the MEDICATION LIST / ALLERGIES and RADIOLOGICAL IMAGES. PHYSICAL EXAM: Upon physical examination, this is a pleasant, cooperative female who maintains a very positive attitude. VITAL SIGNS: 135/72 with a heart rate of 76. At a height of 5'7 , the patient weighs 86 kg. HEAD: Atraumatic, normocephalic. NECK: Crepitus is noted. HEART: Negative orthopnea. LUNGS: Negative dyspnea. ABDOMEN: Protuberant, distended. BACK: No overt tenderness along the posterior elements; however, at the level of the junction of L5-S1, the patient is exquisitely tender. EXTREMITIES: The patient has significant cellulitic changes in her lower extremities bilaterally, extending to her knees. Deep red maroon colors are noted. Once again, the patient has been seen by Dr. Mckenzie with regards to this. MUSCULOSKELETAL: Within functional limits. The patient does have an antalgic gait secondary to joint replacements. NEUROLOGICALLY: Hypoesthesia is present along the S1-L5 distribution bilaterally. PSYCHIATRICALLY: Affect is appropriate. The patient's Oswestry score is 27. IMPRESSION: Current working diagnosis on the patient is bilateral leg pain, lumbosacral radiculopathy, low back pain, lumbar degenerative disc disease, bilateral knee pain, spasming along the gastric muscles bilaterally. PLAN: We will look to proceed with a caudal epidural steroid injection, given the fact that lumbar epidural would be a higher risk for the patient due to the Plavix. We will thread the catheter cephalad to the L5-S1 junction. In the interim, we will inject the trigger points in her lower extremities bilaterally to get some relief for the lower extremity spasm. Subsequent to this, once improved, we will consider the possibility of having the patient attend aquatics where the weight baring can be mitigated for her while she continues with her cardiac exercise protocol. In depth education was done with regards to not holding the Plavix given her recent cardiac stent placement and that this would have the patient take a higher risk for a procedure such as the caudal epidural steroid injection. The patient is very positive, and given the amount of discomfort she has, would like to proceed with this CC: Hardeep Mckenzie D.O.[facility] [id number] Evaluation note* Encounter Date Diagnosis Assessment Notes Treatment Notes Treatment Clinical Notes Mar, Left leg swelling (ICD-10 - M79.89) Pt to keep well eleavated - call with results - if worsens, even though on Plavix, would consider US for clot. Would also consider xray of knee if persists... [employer] Other 01-10-2023 Evaluation note* Encounter Date Diagnosis Assessment Notes Treatment Notes Treatment Clinical Notes Mar, Chronic cough (ICD-10 - R05.3) E Rx sent. Patient to call if no improvement seen. We must consider chest x-ray if symptoms persist. Mar, Chronic fatigue (ICD-10 - R53.82) Etiology is unclear. Deconditioning? We will pursue blood work to make sure there is no organic causation. Patient voices agreement and understanding. Mar, Vitamin D deficiency (ICD-10 - E55.9) [employer] Other 01-10-2023 Evaluation note* Encounter Date Diagnosis Assessment Notes Treatment Notes Treatment Clinical Notes Mar, Chronic cough (ICD-10 - R05.3) [employer] Other 12-05-2022 Evaluation note* Encounter Date Diagnosis Assessment Notes Treatment Notes Treatment Clinical Notes Feb, Environmental and seasonal allergies (ICD-10 - J30.89) Call if no improvement seen. [employer] Other 11-24-2022 Evaluation + Plan noteExtracted from: Title:ED Note Author:Benton Sutherland DO Date :02/02/22 Allergic reaction (T78.40XA: Allergy, unspecified, initial encounter) Orders: acetaminophen, 650 mg = 2 tab(s), Tab, Oral, Once, Stop date 02/02/22 5:36:00 EST, STAT, Start date 02/02/22 5:36:00 EST, 02/02/22 5:36:00 EST cephalexin, 500 mg = 1 cap(s), Oral, q12hr, X 5 day(s), # 10 cap(s), Refills(s) 0, Pharmacy: [id number], 170, cm, 02/02/22 5:38:00 EST, Height/Length Dosing, 90, kg, 02/02/22 5:38:00 EST, Weight Dosing predniSONE, 40 mg = 2 tab(s), Tab, Oral, Once, Stop date 02/02/22 5:36:00 EST, STAT, Start date 02/02/22 5:36:00 EST, 02/02/22 5:36:00 EST Future Scheduled Tests Laboratory* Basic Metabolic Panel 12/03/21 [facility]11-24-2022 Hospital Discharge instructions Patient Education 02/02/2022 06:54:54 Allergies, Adult Allergies, Adult An allergy is when your body's defense system (immune system) overreacts to an otherwise harmless substance (allergen) that you breathe in or eat or something that touches your skin. When you come into contact with something that you are allergic to, your immune system produces certain proteins (antibodies). These proteins cause cells to release chemicals (histamines) that trigger the symptoms ofan allergic reaction. Allergies often affect the nasal passages (allergic rhinitis), eyes (allergic conjunctivitis), skin(atopic dermatitis), and stomach. Allergies can be mild or severe. Allergies cannot spread from person to person (are not contagious). They can develop at any age and may be outgrown. What increases the risk? You may be at greater risk of allergies if other people in your family have allergies. What are the signs or symptoms? Symptoms depend on what type of allergy you have. They may include: Runny, stuffy nose. Sneezing. Itchy mouth, ears, or throat. Postnasal drip. Sore throat. Itchy, red, watery, or puffy eyes. Skin rash or hives. Stomach pain. Vomiting. Diarrhea. Bloating. Wheezing or coughing. People with a severe allergy to food, medicine, or an insect bite may have a life-threatening allergic reaction (anaphylaxis). Symptoms of anaphylaxis include: Hives. Itching. Flushed face. Swollen lips, tongue, or mouth. Tight or swollen throat. Chest pain or tightness in the chest. Trouble breathing or shortness of breath. Rapid heartbeat. Dizziness or fainting. Vomiting. Diarrhea. Pain in the abdomen. How is this diagnosed? This condition is diagnosed based on: Your symptoms. Your family and medical history. A physical exam. You may need to see a health care provider who specializes in treating allergies (academic affairs director). You may also have tests, including: Skin tests to see which allergens are causing your symptoms, such as: ?Skin prick test. In this test, your skin is pricked with a tiny needle and exposed to small amounts of possible allergens to see if your skin reacts. ?Intradermal skin test. In this test, a small amount of allergen is injected under your skin to seeif your skin reacts. ?Patch test. In this test, a small amount of allergen is placed on your skin and then your skin is covered with a bandage. Your health care provider will check your skin after a couple of days to seeif a rash has developed. Blood tests. Challenges tests. In this test, you inhale a small amount of allergen by mouth to see if you have an allergic reaction. You may also be asked to: Keep a food diary. A food diary is a record of all the foods and drinks you have in a day and any symptoms you experience. Practice an elimination diet. An elimination diet involves eliminating specific foods from your diet and then adding them back in one by one to find out if a certain food causes an allergic reaction. How is this treated? Treatment for allergies depends on your symptoms. Treatment may include: Cold compresses to soothe itching and swelling. Eye drops. Nasal sprays. Using a saline spray or container (neti pot) to flush out the nose (nasal irrigation). These methods can help clear away mucus and keep the nasal passages moist. Using a humidifier. Oral antihistamines or other medicines to block allergic reaction and inflammation. Skin creams to treat rashes or itching. Diet changes to eliminate food allergy triggers. Repeated exposure to tiny amounts of allergens to build up a tolerance and prevent future allergic reactions (immunotherapy). These include: ?Allergy shots. ?Oral treatment. This involves taking small doses of an allergen under the tongue (sublingual immunotherapy). Emergency epinephrine injection (auto-injector) in case of an allergic emergency. This is a self-injectable, pre-measured medicine that must be given within the first few minutes of a serious allergic reaction. Follow these instructions at home: Avoid known allergens whenever possible. If you suffer from airborne allergens, wash out your nose daily. You can do this with a saline spray or a neti pot to flush out your nose (nasal irrigation). Take puhd-rab-hixfwsr and prescription medicines only as told by your health care provider. Keep all follow-up visits as told by your health care provider. This is important. If you are at risk of a severe allergic reaction (anaphylaxis), keep your auto- injector with you atall times. If you have ever had anaphylaxis, wear a medical alert bracelet or necklace that states you have a severe allergy. Contact a health care provider if: Your symptoms do not improve with treatment. Get help right away if: You have symptoms of anaphylaxis, such as: ?Swollen mouth, tongue, or throat. ?Pain or tightness in your chest. ?Trouble breathing or shortness of breath. ?Dizziness or fainting. ?Severe abdominal pain, vomiting, or diarrhea. This information is not intended to replace advice given to you by your health care provider. Make sure you discuss any questions you have with your health care provider. Document Released: 05/22/2003 Document Revised: 05/22/2018 Document Reviewed: 09/13/2016 [employer] Patient Education 2020 [employer] Follow Up Care 02/02/2022 05:33:35 With:HARDEEP MCKENZIE Address: [facility] [place] [id number] Business (1) When:Within 3 Day(s) [facility]11-24-2022 History of Present illness Narrative* Ross Flores DO - 02/02/2022 5:02 AM EST Images from the original note were not included. EMERGENCY TRIAGE, TREAT AND TRANSPORT (ET3) DOCUMENTATION OF TELEHEALTH VISIT Date / Time: 02/02/2022 / 0445 Name: Carly Navas : 1940 SSN: (Not on file) EMS Agency: [facility] [x] Verbal consent obtained [] Implied consent - patient with potential emergency medical condition requiring assessment of capacity to refuse treatment and/or transport VITAL SIGNS: see flowsheet documentation Reason for Telehealth Visit: Chief Complaint Patient presents with Palpitations Red Rash Face History of Present Ilness: 81 yo female w/ PMH recent UTI and AMI with 2 stents called EMS for palpitaitons. Started marcobid yesterday for UTI. Since noticed facial rash and palpitaitons. Also tight throat. No prior allergy to this medicaiton Additional pertinent PMHx, SocHx, FamHx: PMH CAD w/ stents Meds macrobid, BP meds Social lives alone Review of Systems: Denies the following: SOB, CP, abd pain, NVD Exam: General: Awake, no distress ENT: normocephalic, atraumatic Pulmonary: No respiratory distress Cardiovascular: Well perfused Neurologic: Oriented to person, place, time and events. Moving all extremities equally. Psychiatric: Appropriate. Good insight and judgement. Medical Decision Makin yo female with CAD and stents recently started macrobid for UTI now having allergy symptoms including rash, palpitaions and tight throat. Took benardyl. Sx improved. Will recommend trx to hospital for allergy vs atypical ACS prescentation w/ her recent hx of AMI and stents, now having HTN and palpitations. Pt in agreement Disposition Supported by Telehealth Assessment: ET3 transport decisions: Transport to hospital EMS Disposition Reported: Same ET3 Encounter Completed by: Ross Flores DO documented in this [id number] NoteCONSULTATION PROCEDURE DATE: 01/31/2022 PREOPERATIVE DIAGNOSIS: Left trapezius spasm. POSTOPERATIVE DIAGNOSIS: Left trapezius spasm. PROCEDURE: Trapezius trigger point injection x2. Subsequent to obtaining informed consent, the patient was placed in the sitting position. Alcohol prep was used to sterilize the site. A 25 gauge needle was advanced and it comes to rest along the trigger zones marked. Marcaine 0.125% along with Kenalog 10 mg in 1 cc volume is injected to each site. Negative heme. The patient tolerates the procedure well, without any overt complication, will be followed up in the office.[id number] Note CONSULTATION CONSULTATION DATE: 01/31/2022 CHIEF COMPLAINT: Left shoulder/neck pain. HISTORY OF PRESENT ILLNESS: This is a very pleasant, 81-year-old female who is known to the [facility]. The patient has bilateral total shoulder replacements. The patient has pain of 7/10 on her left arm. The patient describes it as an achy/sharp sensation. Pushing, pulling, lifting, reaching, use of her left arm aggravates the patient's pain. The patient is a very active individual. The patient recently, unfortunately, suffered an MS event on 11/23/2021 which required her to have two stents placed. The patient is currently on Plavix, gabapentin 300 mg t.i.d. and is [facility], which she finds helpful. The patient's PAST MEDICAL HISTORY / SURGICAL HISTORY / REVIEW OF SYSTEMS are noted on the chart, along with the MEDICATION LIST / ALLERGIES and RADIOLOGICAL IMAGES. PHYSICAL EXAM: Upon physical examination, this is a pleasant, cooperative female, who does not appear to be in any acute distress. VITAL SIGNS: Stable at 135/74, with a heart rate of 78. At a height of 5'3 , the patient weighs 89 kg. HEAD: Atraumatic, normocephalic. FOCUSED EXAMINATION: Crepitus is noted. Cervicothoracic tenderness upon extension, compression, direct palpation. Trapezius spasming is present bilaterally. Left hand side is significant compared to the right hand side. EXTREMITIES: Range of motion is limited in the shoulders bilaterally. 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 Vasomotor changes are noted along the hands bilaterally. Subdermal ecchymotic areas are present. Motor function is within functional limits. IMPRESSION: Current working diagnosis on the patient is status post MS, status post bilateral total shoulder replacement, trapezius spasming on the left hand side, chronic pain. PLAN: The patient is enjoying the cardiac rehab and has been encouraged to maintain and continue this until spring, where she enjoys her gardening. In the meantime, with regards to the trapezius spasming, trigger point injections will be done in office today. The patient understands and would like to proceed. CC: Dr. Rico [facility] [id number] Evaluation note* Encounter Date Diagnosis Assessment Notes Treatment Notes Treatment Clinical Notes Jan, Essential (primary) hypertension (ICD-10 - I10) E Rx sent. No other change today. Patient denies any other significant concern, so we will simply recheck in 6 months. She can certainly call at any time prior to that for any concerns. Jan, Other The goal of hypertension as always to have a blood pressure within acceptable limits, with patient staying compliant with medication. Increased activity, monitoring diet, and weight loss are always encouraged. [employer] Other 11-02-2022 Evaluation note* Encounter Date Diagnosis Assessment Notes Treatment Notes Treatment Clinical Notes Jan, Cough (ICD-10 - R05.9) [employer] Other 10-18-2022 History of Present illness Narrative* Ashley Angel MD - 12/27/2021 1:41 PM EDT Previously followed by Dr Romero - last seen (Dec 2015) and then by Dr. 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 I have confirmed and edited as necessary the relevant ophthalmic history, ROS, and the neuro exam findings as obtained by others. I have seen and examined Carly Marcelino. I have discussed the case and the management of this patient's care with the Resident/Fellow, if applicable. I also have reviewed and agree with the assessment and plan as stated above and agree with all of its relevant components. [facility]* Encounter Date Diagnosis Assessment Notes Treatment Notes Treatment Clinical Notes Dec, Encounter for screening mammogram for malignant neoplasm of breast (ICD-10 - Z12.31) Dec, Essential (primary) hypertension (ICD-10 - I10) Lengthy 30+ minute discussion with patient today. This is in regard to her recent hospital stay and review of the discharge summary and paperwork. She certainly is feeling much better and I think that a good combination of medications have been discovered for her. She is set to see cardiology on which is excellent, and they will pursue further testing. Certainly call with any concerns moving forward. I eagerly await the results from her appointment with cardiology. [employer] Other 10-07-2022 Hospital Discharge instructions Patient Education 12/16/2021 07:58:42 Acute Kidney Injury, Adult Acute Kidney Injury, Adult Acute kidney injury is a sudden worsening of kidney function. The kidneys are organs that have several jobs. They filter the blood to remove waste products and extra fluid. They also maintain a healthy balance of minerals and hormones in the body, which helps control blood pressure and keep bones strong. With this condition, your kidneys do not do their jobs as well as they should. This condition ranges from mild to severe. Over time it may develop into long- lasting (chronic) kidney disease. Early detection and treatment may prevent acute kidney injury from developing into a chronic condition. What are the causes? Common causes of this condition include: A problem with blood flow to the kidneys. This may be caused by: ?Low blood pressure (hypotension) or shock. ?Blood loss. ?Heart and blood vessel (cardiovascular) disease. ?Severe gregory. ?Liver disease. Direct damage to the kidneys. This may be caused by: ?Certain medicines. ?A kidney infection. ?Poisoning. ?Being around or in contact with toxic substances. ?A surgical wound. ?A hard, direct hit to the kidney area. A sudden blockage of urine flow. This may be caused by: ?Cancer. ?Kidney stones. ?An enlarged prostate in males. What are the signs or symptoms? Symptoms of this condition may not be obvious until the condition becomes severe. Symptoms of this condition can include: Tiredness (lethargy), or difficulty staying awake. Nausea or vomiting. Swelling (edema) of the face, legs, ankles, or feet. Problems with urination, such as: ?Abdominal pain, or pain along the side of your stomach (flank). ?Decreased urine production. ?Decrease in the force of urine flow. Muscle twitches and cramps, especially in the legs. Confusion or trouble concentrating. Loss of appetite. Fever. How is this diagnosed? This condition may be diagnosed with tests, including: Blood tests. Urine tests. Imaging tests. A test in which a sample of tissue is removed from the kidneys to be examined under a microscope (kidney biopsy). How is this treated? Treatment for this condition depends on the cause and how severe the condition is. In mild cases, treatment may not be needed. The kidneys may heal on their own. In more severe cases, treatment will involve: Treating the cause of the kidney injury. This may involve changing any medicines you are taking or adjusting your dosage. Fluids. You may need specialized IV fluids to balance your body's needs. Having a catheter placed to drain urine and prevent blockages. Preventing problems from occurring. This may mean avoiding certain medicines or procedures that cancause further injury to the kidneys. In some cases treatment may also require: A procedure to remove toxic wastes from the body (dialysis or continuous renal replacement therapy - CRRT). Surgery. This may be done to repair a torn kidney, or to remove the blockage from the urinary system. Follow these instructions at home: Medicines Take ikip-vll-aacekyh and prescription medicines only as told by your health care provider. Do not take any new medicines without your health care provider's approval. Many medicines can worsen your kidney damage. Do not take any vitamin and mineral supplements without your health care provider's approval. Many nutritional supplements can worsen your kidney damage. Lifestyle If your health care provider prescribed changes to your diet, follow them. You may need to decreasethe amount of protein you eat. Achieve and maintain a healthy weight. If you need help with this, ask your health care provider. Start or continue an exercise plan. Try to exercise at least 30 minutes a day, 5 days a week. Do not use any tobacco products, such as cigarettes, chewing tobacco, and e- cigarettes. If you needhelp quitting, ask your health care provider. General instructions Keep track of your blood pressure. Report changes in your blood pressure as told by your health care provider. Stay up to date with immunizations. Ask your health care provider which immunizations you need. Keep all follow-up visits as told by your health care provider. This is important. Where to find more information [place] [employer]: www.aakp.org National Kidney Foundation: www.kidney.org [employer] [employer]: www.akfinc.org Life [employer] Rehabilitation Program: ?www.lifeoptions.org ?www.kidneyschool.org Contact a health care provider if: Your symptoms get worse. You develop new symptoms. Get help right away if: You develop symptoms of worsening kidney disease, which include: ?Headaches. ?Abnormally dark or light skin. ?Easy bruising. ?Frequent hiccups. ?Chest pain. ?Shortness of breath. ?End of menstruation in women. ?Seizures. ?Confusion or altered mental status. ?Abdominal or back pain. ?Itchiness. You have a fever. Your body is producing less urine. You have pain or bleeding when you urinate. Summary Acute kidney injury is a sudden worsening of kidney function. Acute kidney injury can be caused by problems with blood flow to the kidneys, direct damage to the kidneys, and sudden blockage of urine flow. Symptoms of this condition may not be obvious until it becomes severe. Symptoms may include edema, lethargy, confusion, nausea or vomiting, and problems passing urine. This condition can usually be diagnosed with blood tests, urine tests, and imaging tests. Sometimesa kidney biopsy is done to diagnose this condition. Treatment for this condition often involves treating the underlying cause. It is treated with fluids, medicines, dialysis, diet changes, or surgery. This information is not intended to replace advice given to you by your health care provider. Make sure you discuss any questions you have with your health care provider. Document Released: 09/11/2011 Document Revised: 02/08/2018 Document Reviewed: 02/16/2017 [employer] Patient Education 2020 [employer]. Follow Up Care 12/15/2021 11:06:59 With:HARDEEP MCKENZIE DO, FAM Address: [address] [place] [address]- When:12/20/2021 10:45:00 [facility]10-06-2022 Evaluation + Plan noteExtracted from: Title:Admission H & P Author:Gordy Armstrong MD Date:12/15/21 81-year-old female monthly w ith past medical history of CA status post recent RCA stent D, diastolic dysfunction, mild pulmonary hypertension, mild carotid artery disease, asthma, chronic anemia, chronic hepatic cyst, ovarian dermoid, seizure disorder on gabapentin, left extremity DVT x2 (history of remote left lower extremity trauma, left lower extremity DVT 25 years ago and second left femoral vein DVT 07/2017) presented with an episode of weakness and hypotension. Hypotension Episode of weakness with hypotension at home. Recently restarted on hydrochlorothiazide triamterene. Patient is also on losartan. SBP 150 160s in the hospital. Heart rate mid high 50s. Recently decreased metoprolol dose ECG, chest x-ray, CBC, troponin, BNP, UA unremarkable. BMP with LALY. Elevated D- dimer Given recent admissions and symptoms patient will benefit from Holter monitor outpatient[facility] History of left extremity DVT x2. History of remote left lower extremity trauma, left lower extremity DVT 25 years ago and second left femoral vein DVT 07/2017. Patient does not member if she was anticoagulated after first DVT but patient mentioned except aspirin she was not on any other blood thinners after her second DVT D-dimer 1687. Due to LALY avoid contrast Order bilateral lower extremity ultrasound, V/Q scan LALY Creatinine 1.7 Normal saline cc per hour Recently restarted hydrochlorothiazide triamterene. Hold Hold losartan CAD status post recent RCA stent On aspirin, Brilinta, Lipitor, beta-rudi, ARB Diastolic dysfunction Pulmonary hypertension Echocardiogram 11/24/2021 with EF 65%, stage I diastolic dysfunction, left atrium dilatation, mild MR, mild TR, mild pulmonary hypertension Mild carotid artery disease Carotid ultrasound 12/01/2021 showed less than 50% stenosis JONATHON and LICA Asthma Not in acute exacerbation Chronic anemia On ferrous sulfate. Started on 12/02/2021 Hepatic cyst Chronic, stable, last CT abdomen 11/2018 Ovarian dermoid 2.8 cm, seen on CT abdomen 11/2018 Morbid obesity BMI around 30 Lifestyle modifications Chronic GERD On famotidine. Started on 12/02/2021 Seizure disorder Last seizure many years ago per patient. On gabapentin per patient Diet: cardiac Code: Full code DVT prophylaxis: heparin Dispo: observation; anticipated hosp stay <2 midnights This report was transcribed using voice recognition software. Every effort was made to ensure accuracy, however, inadvertently computerized production control manager mistakes may be present. Dr. Gordy Armstrong Hospitalist 1. History of hypotension (Z86.79: Personal history of other diseases of the circulatory system) 2. Elevated d-dimer (R79.89: Other specified abnormal findings of blood chemistry) 3. LALY (acute kidney injury) (N17.9: Acute kidney failure, unspecified) 4. CAD (coronary artery disease) (I25.10: Atherosclerotic heart disease of [place] coronary artery without angina pectoris) 5. Diastolic dysfunction (I51.89: Other ill-defined heart diseases) 6. Mild pulmonary hypertension (I27.20: Pulmonary hypertension, unspecified) 7. Chronic anemia (D64.9: Anemia, unspecified) 8. Hepatic cyst (K76.89: Other specified diseases of liver) 9. Morbid obesity (E66.01: Morbid (severe) obesity due to excess calories) 10. Seizure disorder (R56.9: Unspecified convulsions) 11. Chronic GERD (K21.9: Gastro-esophageal reflux disease without esophagitis) 12. Asthma (J45.909: Unspecified asthma, uncomplicated) Orders: acetaminophen, 650 mg = 2 tab(s), Tab, Oral, q6hr PRN Pain, Routine, Start date 12/15/21 15:09:00 EDT, 12/15/21 15:09:00 EDT heparin, 5,000 unit(s) = 1 mL, Injection, SubCutaneous, BID for 30 day(s), Stop date 01/14/22 20:59:00 EDT, Routine, Start date 12/15/21 21:00:00 EDT, 12/15/21 15:09:00 EDT hydrALAZINE, 10 mg = 0.5 mL, Injection, IV Push, q6hr PRN Other (see comment), Routine, Start date 12/15/21 15:09:00 EDT, 12/15/21 15:09:00 EDT ondansetron, 4 mg = 2 mL, Injection, IV Push, q6hr PRN Nausea, Routine, Start date 12/15/21 15:09:00 EDT, 12/15/21 15:09:00 EDT Sodium Chloride 0.9% intravenous solution 1,000 mL, 1,000 mL, IV, 100 mL/hr, Routine, Start date 12/15/21 15:09:00 EDT, 10 hour(s), Total volume (mL): 1,000, 86.5 kg, 2.02, m2 Cardiac Diet Cardiac Monitoring NM Pulmonary Vent and Perfusion Imaging Notify Provider Vital Signs Notify Provider Vital Signs Physical Therapy Evaluate Patient, Develop a Plan of Care and Implement Plan Place in Status Pulse Oximetry Resuscitation Status - Full US LE Venous Duplex Bilateral Vital Signs Weight Extracted from: Title:ED Note Author:James Nguyen MD Date: 1. History of hypotension (Z 86.79: Personal history of other diseases of the circulatory system) 2. Dizziness (R42: Dizziness and giddiness) 3. Elevated d-dimer (R79.89: Other specified abnormal findings of blood chemistry) 4. Renal insufficiency (N28.9: Disorder of kidney and ureter, unspecified) Orders: B-Type Natriuretic Peptide D-Dimer ED Cardiac Monitoring ED Physician consult Hospitalist for continued care Extra Green Li Tube Extra SST Tube Orthostatic Vitals Signs Oxygen Saturation PT & PTT Saline Lock Insert Future Scheduled Tests Laboratory* Basic Metabolic Panel 12/18/21 * Basic Metabolic Panel 12/03/21 [facility]10-06-2022 History of Present illness Narrative* Diaz Sloan DO - 12/15/2021 11:08 AM EDT Images from the original note were not included. EMERGENCY TRIAGE, TREAT AND TRANSPORT (ET3) DOCUMENTATION OF TELEHEALTH VISIT Date / Time: 12/15/2021 / 0 am Name: Ryann Mccord : 1940 SSN: (Not on file) EMS Agency: [facility] [x] Verbal consent obtained [] Implied consent - patient with potential emergency medical condition requiring assessment of capacity to refuse treatment and/or transport VITAL SIGNS: see flowsheet documentation--vitals were not transmitted told by EMS the vitals were withing normal limits Reason for Telehealth Visit: Chief Complaint Patient presents with Dizziness History of Present Ilness: LH this AM, recent AMI Additional pertinent PMHx, SocHx, FamHx: CAD, on anticoagulant, currently feels better Review of Systems: Denies the following: LOC, fall Exam: General: Awake, no distress ENT: normocephalic, atraumatic Pulmonary: No respiratory distress Cardiovascular: Well perfused Neurologic: Oriented to person, place, time and events. Moving all extremities equally. Psychiatric: Appropriate. Good insight and judgement. Medical Decision Making: Patient w/ known CAD, on anticoagulants, episode c/w near syncope, concerning for ACS, arrhythmia, overmedication, will benefit from further assessment in ED, pt agreed to be transported by EMS Disposition Supported by Telehealth Assessment: ET3 transport decisions: Transport to hospital EMS Disposition Reported: Same ET3 Encounter Completed by: Dr. Diaz Sloan DO documented in this [id number] Evaluation + Plan note Extracted from: Title:Discharge Note Author:KRAIG VICTOR, Javad Andi e:12/13/21 stable Discharge To, Anticipated II - Home with home health Discharged to - Home independently home Discharge Diet(s): Low Sodium- 2000 mg (12/13/21 09:12:00) Prescriptions atorvastatin 80 mg Tab, 80 mg= 1 tab(s), Oral, Daily famotidine 40 mg Tab, 40 mg= 1 tab(s), Oral, Daily ferrous sulfate 325 mg Tab, 325 mg= 1 tab(s), Oral, Daily front wheeled walker dx left knee hematoma, 0 hydrochlorothiazide-triamterene 25 mg-37.5 mg Tab, 0.5 tab(s), Oral, Daily, 1 refills metoprolol 25 mg ER Tab, 12.5 mg= 0.5 tab(s), Oral, Daily outpatient PT dx left knee hematoma, 0 ticagrelor 90 mg oral tablet, 90 mg= 1 tab(s), Oral, BID Home aspirin 81 mg Chew Tab, 81 mg= 1 tab(s), Oral, Daily baclofen, 5 mg, Oral, Bedtime Fish Oil, 1 cap(s), Oral, Bedtime gabapentin 300 mg Cap, 300 mg= 1 cap(s), Oral, TID losartan 100 mg Tab, 100 mg= 1 tab(s), Oral, Daily magnesium oxide 400 mg Tab, 400 mg= 1 tab(s), Oral, Bedtime montelukast 10 mg Tab, 10 mg= 1 tab(s), Oral, Daily Multivitamins and Minerals oral tablet Zyrtec, 10 mg, Oral, Daily, PRN With When Contact Information HARDEEP MCKENZIE 12/20/2021 10:45 AM EDT [address], [facility] [address] [place] [address]- Business (1) Additional Instructions: Coronary Artery Disease (CUSTOM) Extracted from: Title:SOAP Note: Simple Author:Jose VICTOR, Willi am P Date:12/12/21 Patient: CARLY MARCELINO Age: 81 years Sex: Female : 1940 Associated Diagnoses: None Author: Joseph Garcia MD Impression and Plan CONSULT DICTATED NON CARDIAC CHEST PAIN PALPITATION OF UNCERTAIN ETIOLOGY REC: SAME MEDS, OK TO DISCHARGE I EXPLAINED TO HER THAT HER CARDIAC CONDITION IS STABLE TREAT FOR GERD CARDIAC REHAB ENROLLMENT WILL PREVENT RECURRENT ADMISSIONS Addendum by Adán Garcia MD on December 12, 2021 14:15 EDT I RECOMMEND RESUMPTION OF DYAZIDE 37.5/25 ONE HALF TABLET DAILY IN ADDTION TO OTHER MEDS OK TO DISCHARGE TODAY Extracted from: Title:Admission H & P Author:Melissa SMITH DO Date:12/12/21 1. Chest pain (R07.9: Chest pain, unspecified) Symptoms were atypical, she states they differed from the symptoms she had prior to his stent. Thus far cardiac enzymes are negative. Patient did have change in medications on the recent hospitalization including changing her metoprolol to a lower dose extended release. She was also complaining of palpitations but she also indicated that her blood pressure cuff monitor was suggesting a heart rate in the 70s ?anxiety versus effect of changing her metoprolol. Monitor on telemetry. With below we will consult with cardiology Ordered: Consult to Cardiology 2. Coronary artery disease (I25.10: Atherosclerotic heart disease of [place] coronary artery without angina pectoris) Patient had a percutaneous intervention of the right current artery with a drug-eluting stent. Continue dual antiplatelets aspirin, Brilinta, metoprolol and statin 3. Rales (R09.89: Other specified symptoms and signs involving the circulatory and respiratory systems) She denies any respiratory symptoms. She did state that her legs are getting more puffy since stopping the triamterene hydrochlorothiazide which was discontinued on prior hospitalization due to mild hyponatremia which is resolved. She however denied any progressive dyspnea on exertion she was not orthopneic. Noted on cardiac catheterization patient had normal systolic function recent imaging did demonstrate stage I diastolic dysfunction. Was not impressed with the chest x-ray. She is afebrile, no leukocytosis. Monitor volume status 4. HTN (I10: Essential (primary) hypertension) Continue metoprolol low-dose extended release as prescribed by Dr. Yates on previous admission. Note after evaluating the patient looking at the med reconciliation to have list of both losartan and lisinopril. For now we will order losartan but confirm 5. History of seizures (Z87.898: Personal history of other specified conditions) Patient states she has not had a seizure for several years and attributes this to being delivered with forceps 6. Asthma (J45.909: Unspecified asthma, uncomplicated) She describes mild asthma and is stable 7. History of deep venous thrombosis (Z86.718: Personal history of other venous thrombosis and embolism) Patient was vague with his history suggested occurred 30 years ago believes she was on anticoagulants we will use heparin subcutaneous 8. History of lumbar surgery (Z98.890: Other specified postprocedural states) Patient takes baclofen in the evening also takes gabapentin Orders: acetaminophen, 650 mg = 2 tab(s), Tab, Oral, q6hr PRN Pain, Routine, Start date 12/12/21 7:28:00 EDT, 12/12/21 7:28:00 EDT aspirin, 81 mg = 1 tab(s), Tab-Chew, Oral, Daily, Routine, Start date 12/12/21 9:00:00 EDT, 12/12/21 7:19:00 EDT atorvastatin, 80 mg = 2 tab(s), Tab, Oral, Daily, Routine, Start date 12/12/21 9:00:00 EDT, 12/12/21 7:20:00 EDT baclofen, 5 mg = 0.5 tab(s), Tab, Oral, Once, Stop date 12/12/21 8:00:00 EDT, Routine, Start date 12/12/21 8:00:00 EDT, 12/12/21 7:20:00 EDT famotidine, 40 mg = 2 tab(s), Tab, Oral, Daily, Routine, Start date 12/12/21 9:00:00 EDT, 12/12/21 7:20:00 EDT ferrous sulfate, 325 mg = 1 tab(s), Tab, Oral, Daily, Routine, Start date 12/12/21 9:00:00 EDT, 12/12/21 7:20:00 EDT gabapentin, 300 mg = 1 cap(s), Cap, Oral, TID, Routine, Start date 12/12/21 8:00:00 EDT, 12/12/21 7:20:00 EDT heparin, 5,000 unit(s) = 1 mL, Injection, SubCutaneous, BID, Routine, Start date 12/12/21 9:00:00 EDT, 12/12/21 7:28:00 EDT hydrALAZINE, 10 mg = 0.5 mL, Injection, IV Push, q6hr PRN Other (see comment), Routine, Start date 12/12/21 7:28:00 EDT, 12/12/21 7:28:00 EDT losartan, 100 mg = 2 tab(s), Tab, Oral, Daily, Routine, Start date 12/12/21 9:00:00 EDT, 12/12/21 7:21:00 EDT magnesium oxide, 400 mg = 1 tab(s), Tab, Oral, Bedtime, Routine, Start date 12/12/21 21:00:00 EDT, 12/12/21 7:21:00 EDT metoprolol, 12.5 mg = 0.5 tab(s), Tab-ER, Oral, Daily, Routine, Start date 12/12/21 9:00:00 EDT, 12/12/21 7:21:00 EDT ondansetron, 4 mg = 2 mL, Injection, IV Push, q6hr PRN Nausea, Routine, Start date 12/12/21 7:28:00 EDT, 12/12/21 7:28:00 EDT ticagrelor, 90 mg = 1 tab(s), Tab, Oral, BID, Routine, Start date 12/12/21 9:00:00 EDT, 12/12/21 7:21:00 EDT Basic Metabolic Panel Cardiac Diet Cardiac Monitoring CBC w/ Auto Diff Chest Pain, AMI Quality Measures Education Fall Risk Magnesium Level Notify Provider Vital Signs Notify Provider Vital Signs Place in Status Precautions Resuscitation Status - Full Saline Lock Convert From IV TSH With T4fr Reflex Up ad [place]ley Vital Signs Weight Patient is admitted as an observation with the anticipation she would not require 2 midnight stay Extracted from: Title:ED Note Author:Do Montez DO Date :12/11/21 Chest pain (R07.9: Chest mayuri n, unspecified) Orders: nitroglycerin, 0.4 mg = 1 tab(s), Tab, SubLingual, q5min PRN Chest pain for 3 dose(s), Stop date Limited # of times, STAT, Start date 12/11/21 19:34:00 EDT, 12/11/21 19:34:00 EDT Automated Diff Basic Metabolic Panel CBC w/ Auto Diff ED Cardiac Monitoring ED Physician consult Hospitalist for continued care eGFR Extra SST Tube Hepatic Function Panel Oxygen Saturation Oxygen Therapy PT & PTT Saline Lock Insert Troponin 0 Hr. Troponin 3 Hr. Troponin 6 Hr. Troponin 9 Hr. XR Chest Single View Future Scheduled Tests Laboratory* Basic Metabolic Panel 12/03/21 [facility]10-04-2022 Hospital Discharge instructions Patient Education 12/13/2021 09:12:42 Coronary Artery Disease (CUSTOM) Coronary Artery Disease Coronary artery disease (CAD) is a process in which the heart (coronary) arteries narrow or become blocked from the development of atherosclerosis. Atherosclerosis is a disease in which plaque buildsup on the inside of the heart arteries (coronary arteries). Plaque is made up of fats (lipids), cholesterol, calcium, and fibrous tissue. CAD can lead to a heart attack (myocardial infarction, MS). An MS can lead to heart failure, cardiogenic shock, or sudden cardiac . CAD can cause an MS through: Plaque buildup that can severely narrow or block the coronary arteries and diminish blood flow. Plaque that can become unstable and rupture. Unstable plaque that ruptures within a coronary artery can form a clot and cause a sudden (acute) blockage. RISK FACTORS Many risk factors contribute to the development of CAD. These include: High cholesterol (dyslipidemia) levels. High blood pressure (hypertension). Smoking. Diabetes. Age. Gender. Men can develop CAD earlier in life than women. Family history. Inactivity or lack of regular physical or aerobic exercise. A diet high in saturated fats. Chronic kidney disease. SYMPTOMS When a coronary artery is narrowed or blocked, an MS can occur. MS symptoms can include: Chest pain (agina). Angina can occur by itself or it can also occur with pain in the neck, arm, jaw, or in the upper, middle back (mid-scapular pain). Profuse sweating (diaphoresis) without physical activity or movement. Shortness of breath (dyspnea). Irregular heartbeats (palpitations) that feel like your heart is skipping beats or is beating very fast. Nausea. Epigastric pain. Epigastric pain may occur as heartburn. Tiredness (malaise). This can especially be present in the elderly. Women can have different (atypical) symptoms other than classic angina. DIAGNOSIS The diagnosis of CAD may include: An electrocardiography (ECG). An ECG does not diagnose CAD, but it is usefull in the detection of asudden (acute) MS or as a marker for a previous MS. 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 Exercise stress test. A stress test can be performed at rest for people who are unable to do an exercise stress test. A stress test will only be abnormal if one or more of the large coronary arteriesis significantly blocked. Blood tests. Tests may include samples to detect heart muscle damage (such as troponin levels). Other tests may include cholesterol checks and an inflammation test (high-sensitivity C-reactive protein, hs-CRP). Coronary angiography. Screening people who have peripheral vascular disease (PAD). These people often times have CAD. TREATMENT The treatment of CAD includes the following: Lifestyle changes such as: ? Following a heart-healthy diet. A registered dietitian can you help educate you on healthy food options and changes. ? Quiting smoking. ? Following an exercise program approved by your caregiver. ? Maintaining a healthy weight. Lose weight as approved by your caregiver. Medicines to help control your blood pressure, cholesterol level, angina, and blood clotting. Medicines may include beta-blockers, GARRET inhibitors, statins, nitrates, and anti-platelet medicines. ? If you have a heart stent and are taking anti-platelet medicine, it is important to not suddenly stop taking this medicine. Suddenly stopping anti- platelet medicine can result in an MS. Talk with your caregiver before stopping medicine or if you cannot afford your medicine. If the coronary arteries are significantly blocked, surgery may be needed. This can include: ? Percutaneous coronary intervention (PCI) with or without stent placement. ? Coronary artery bypass graft surgery (CABG). SEEK IMMEDIATE MEDICAL CARE IF: You develop MS symptoms. This is a medical emergency. Get help at once. Call your local emergency service (911 in the [place] immediately. Do not drive yourself to the clinic or hospital. MS symptoms can include: ? Angina or pain that occurs in the neck, arm, jaw, or in the upper middle back. ? Profuse sweating without cause. ? Shortness of breath or difficulty breathing without cause. ? Unexplained nausea or epigastric pain that feels like heartburn. Document Released: 05/20/2012 Document Reviewed: 06/30/2014 [employer] Patient Information 2015 [employer]. This information is not intended to replace advicegiven to you by your health care provider. Make sure you discuss any questions you have with your health care provider. Follow Up Care 12/11/2021 18:21:43 With:HARDEEP MCKENZIE Address: [address], [facility] [address] [place] [address]- Business (1) When:12/20/2021 10:45:00 [facility]09-24-2022 Evaluation + Plan note Future Scheduled Tests Laboratory* Basic Metabolic Panel 12/03/21 [facility]09-23-2022 Evaluation + Plan noteExtracted from: Title:Discharge Note Author:Jil VICTOR, Gordy Harris Date:12/02/21 Discharged to - Home independently Discharge Diet(s): Fat Modified- Low cholesterol (12/01/21 11:36:00) Prescriptions atorvastatin 80 mg Tab, 80 mg= 1 tab(s), Oral, Daily front wheeled walker dx left knee hematoma, 0 lisinopril 20 mg Tab, 20 mg= 1 tab(s), Oral, Daily Metoprolol tartrate 25 mg Tab, 25 mg= 1 tab(s), Oral, BID outpatient PT dx left knee hematoma, 0 ticagrelor 90 mg oral tablet, 90 mg= 1 tab(s), Oral, BID Home aspirin 81 mg Chew Tab, 81 mg= 1 tab(s), Oral, Daily baclofen, 5 mg, Oral, Bedtime Fish Oil, 1 cap(s), Oral, Bedtime gabapentin 300 mg Cap, 300 mg= 1 cap(s), Oral, TID hydrochlorothiazide-triamterene 25 mg-37.5 mg Cap, 1 cap(s), Oral, Daily losartan 100 mg Tab, 100 mg= 1 tab(s), Oral, Daily magnesium oxide 400 mg Tab, 400 mg= 1 tab(s), Oral, Bedtime montelukast 10 mg Tab, 10 mg= 1 tab(s), Oral, Daily Multivitamins and Minerals oral tablet Zyrtec, 10 mg, Oral, Daily, PRN With When Contact Information HARDEEP MCKENZIE DO, HERB Within 2 to 4 days [address], [facility] [address] [place] [address]- Additional Instructions: Syncope Extracted from: Title:Progress Note * Author:Doe VICTOR, Jazmyne wilson Date:12/02/21 Impression and Plan 1. Questionable syncopal episode etiology unclear consider transient hypotension or bradycardia. Hemodynamically stable. Carotid Doppler no disease 2. Symptoms of fatigue and tiredness I suspect due to beta-rudi 3. Coronary artery disease with recent PCI to the right coronary artery 4. Mild hyponatremia 5. History of seizure but denies any recently 6. Hyperlipidemia Plan 1. I reviewed treatment option with the patient at great length. I recommended switching to low-dose Toprol 12.5 mg daily 2. Carotid Doppler showed no significant disease. Monitor failed to demonstrate any tacky or bradycardia arrhythmia 3. Patient can be discharged home. I advised her not to check her heart rate frequently considering it seems to be causing her significant anxiety and considering no arrhythmia were documented 4. 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 Yates Extracted from: Title:Cardiovascular Admission H&P * Author:Hawk rice MD, Anjana Date:12/01/21 Impression and Plan 1. Questionable syncopal episode etiology unclear consider transient hypotension or bradycardia 2. Symptoms of fatigue and tiredness I suspect due to beta-rudi 3. Coronary artery disease with recent PCI to the right coronary artery 4. Mild hyponatremia 5. History of seizure but denies any recently 6. Hyperlipidemia Plan 1. I reviewed treatment option with the patient at great length. I recommended switching her to a longer acting metoprolol and cutting down the dose to 12.5 mg once daily and hope that this will prevent any palpitation or tachycardia without excessively slowing her heart rate 2. We will check carotid Doppler 3. Will observe for the next 12 hours and hopefully home in a.m. if remains stable Extracted from: Title:Admission H & P Author:Renay SALINAS DO Date:11/30/21 1. Syncope (R55: Syncope and collapse) Supportive care. We will have physical therapy and Occupational Therapy evaluate patient. Will check vitamin B12, folate, TSH levels. Patient has not been bradycardic in the hospital but does report bradycardia at home. Will maintain on telemetry overnight. We will ask cardiology to see patient. 2. Hyponatremia (E87.1: Hypo-osmolality and hyponatremia) May be because of above symptoms. Will place on 1.5 L fluid restriction. Normal saline at 50 mill per hour. Recheck sodium with morning labs. 3. CAD (coronary artery disease) (I25.10: Atherosclerotic heart disease of [place] coronary artery without angina pectoris) We will continue patient's beta-rudi, Brilinta, statin. 4. Benign essential HTN (I10: Essential (primary) hypertension) Hydralazine iv prn. see orders. Resume home medications once reconciled. 5. Seizure disorder (G40.909: Epilepsy, unspecified, not intractable, without status epilepticus) No recent seizure activity. Continue Neurontin. 6. Asthma (J45.909: Unspecified asthma, uncomplicated) Continue Singulair. DuoNeb as needed. 7. DVT prophylaxis (Z29.9: Encounter for prophylactic measures, unspecified) SCD, enoxaparin Orders: acetaminophen, 650 mg = 2 tab(s), Tab, Oral, q6hr PRN Pain, Routine, Start date 11/30/21 23:27:00 EDT, 11/30/21 23:27:00 EDT albuterol-ipratropium, 3 mL, Soln-Inh, Inhalation, QID PRN Dyspnea for 30 day(s), Stop date 12/30/21 23:27:00 EDT, Routine, Start date 11/30/21 23:28:00 EDT diphenhydrAMINE, 25 mg = 1 cap(s), Cap, Oral, q6hr PRN Itching, Routine, Start date 11/30/21 23:27:00 EDT, 11/30/21 23:27:00 EDT enoxaparin, 40 mg = 0.4 mL, Injection, SubCutaneous, Daily, Routine, Start date 12/01/21 9:00:00 EDT, 11/30/21 23:27:00 EDT hydrALAZINE, 10 mg = 0.5 mL, Injection, IV Push, q6hr PRN Other (see comment), Routine, Start date 11/30/21 23:27:00 EDT, 11/30/21 23:27:00 EDT ibuprofen, 800 mg = 1 tab(s), Tab, Oral, TID PRN Pain, Routine, Start date 11/30/21 23:27:00 EDT, 11/30/21 23:27:00 EDT ondansetron, 4 mg = 2 mL, Injection, IV Push, q6hr PRN Nausea, Routine, Start date 11/30/21 23:27:00 EDT, 11/30/21 23:27:00 EDT promethazine, 12.5 mg = 0.5 mL, Injection, IV Push, q6hr PRN Nausea, Routine, Start date 11/30/21 23:27:00 EDT, 11/30/21 23:27:00 EDT Sodium Chloride 0.9% intravenous solution 1,000 mL, 1,000 mL, IV, 50 mL/hr, Routine, Start date 11/30/21 23:27:00 EDT, 20 hour(s), Total volume (mL): 1,000, 87.4 kg, 2.03, m2 Ambulate with Assistance Basic Metabolic Panel Below the Knee Intermittent Pneumatic Compression Device Cardiac Monitoring Consult to Cardiology Folate Level Magnesium Level Notify Provider Vital Signs Notify Provider Vital Signs Occupational Therapy Evaluate Patient, Develop a Plan of Care and Implement Plan Oxygen Protocol Physical Therapy Evaluate Patient, Develop a Plan of Care and Implement Plan Place in Status Precautions Regular Diet Resuscitation Status - Full Troponin TSH With T4fr Reflex Vital Signs Vitamin B12 Level Weight Anticipated stay less than 2 midnights. Patient will be observation status. Extracted from: Title:ED Note Author:Evert Perkins PA-C te:11/30/21 1. Syncope (R55: Syncope and collapse) Orders: Sodium Chloride 0.9% intravenous solution 1,000 mL, 1,000 mL, IV, 20 mL/hr, STAT, Start date 11/30/21 20:38:00 EDT, 50 hour(s), Total volume (mL): 1,000, 87.4 kg, 2.03, m2 Automated Diff Basic Metabolic Panel CBC w/ Auto Diff ED Physician consult Hospitalist for continued care eGFR Troponin 0 Hr. Troponin 3 Hr. Troponin 6 Hr. Troponin 9 Hr. UA With Cult Reflex XR Chest Single View Future Scheduled Tests Laboratory* Basic Metabolic Panel 12/03/21 [facility]09-22-2022 Hospital Discharge instructions Patient Education 12/01/2021 11:37:05 Syncope Syncope Syncope refers to a condition in which a person temporarily loses consciousness. Syncope may also be called fainting or passing out. It is caused by a sudden decrease in blood flow to the brain. Eventhough most causes of syncope are not dangerous, syncope can be a sign of a serious medical problem. Your health care provider may do tests to find the reason why you are having syncope. Signs that you may be about to faint include: Feeling dizzy or light-headed. Feeling nauseous. Seeing all white or all black in your field of vision. Having cold, clammy skin. If you faint, get medical help right away. Call your local emergency services (911 in the [place] Donot drive yourself to the hospital. Follow these instructions at home: Pay attention to any changes in your symptoms. Take these actions to stay safe and to help relieve your symptoms: Lifestyle Do not drive, use machinery, or play sports until your health care provider says it is okay. Do not drink alcohol. Do not use any products that contain nicotine or tobacco, such as cigarettes and e-cigarettes. If you need help quitting, ask your health care provider. Drink enough fluid to keep your urine pale yellow. General instructions Take bfhw-fuj-kcbixwn and prescription medicines only as told by your health care provider. If you are taking blood pressure or heart medicine, get up slowly and take several minutes to sit and then stand. This can reduce dizziness or light-headedness. Have someone stay with you until you feel stable. If you start to feel like you might faint, lie down right away and raise (elevate) your feet above the level of your heart. Breathe deeply and steadily. Wait until all the symptoms have passed. Keep all follow-up visits as told by your health care provider. This is important. Get help right away if you: Have a severe headache. Faint once or repeatedly. Have pain in your chest, abdomen, or back. Have a very fast or irregular heartbeat (palpitations). Have pain when you breathe. Are bleeding from your mouth or rectum, or you have black or tarry stool. Have a seizure. Are confused. Have trouble walking. Have severe weakness. Have vision problems. These symptoms may represent a serious problem that is an emergency. Do not wait to see if your symptoms will go away. Get medical help right away. Call your local emergency services (911 in the [place] Do not drive yourself to the hospital. Summary Syncope refers to a condition in which a person temporarily loses consciousness. It is caused by a sudden decrease in blood flow to the brain. Signs that you may be about to faint include dizziness, feeling light-headed, feeling nauseous, sudden vision changes, or cold, clammy skin. Although most causes of syncope are not dangerous, syncope can be a sign of a serious medical problem. If you faint, get medical help right away. This information is not intended to replace advice given to you by your health care provider. Make sure you discuss any questions you have with your health care provider. Document Released: 02/26/2006 Document Revised: 02/08/2018 Document Reviewed: 02/04/2018 [employer] Patient Education 2020 [employer]. Follow Up Care 11/30/2021 20:08:01 With:HARDEEP MCKENZIE DO [facility] Address: [address] [place] [address] [address] [place] [address]- When:2 to 4 days Comments:No answer at PCP. Please contact office on Sunday, December 05 to schedule an appointment. Thank you! With:Anjana Azar MD, MARSHAL Address: [facility] [address], [address] [place] [address]- Business (1) When:12/22/2021 11:30:00 [facility]09-17-2022 Hospital Discharge instructions Patient Education 11/26/2021 13:08:44 Coronary Angiogram Coronary Angiogram A coronary angiogram is an X-ray procedure that is used to examine the arteries in the heart. In this procedure, a dye (contrast dye) is injected through a long, thin tube (catheter). The catheter isinserted through the groin, wrist, or arm. The dye is injected into each artery, then X-rays are taken to show if there is a blockage in the arteries of the heart. This procedure can also show if youhave valve disease or a disease of the aorta, and it can be used to check the overall function of your heart muscle. You may have a coronary angiogram if: You are having chest pain, or other symptoms of angina, and you are at risk for heart disease. You have an abnormal electrocardiogram (ECG) or stress test. You have chest pain and heart failure. You are having irregular heart rhythms. You and your health care provider determine that the benefits of the test information outweigh the risks of the procedure. Let your health care provider know about: Any allergies you have, including allergies to contrast dye. All medicines you are taking, including vitamins, herbs, eye drops, creams, and xvlb-joy-zqkzqav medicines. Any problems you or family members have had with anesthetic medicines. Any blood disorders you have. Any surgeries you have had. History of kidney problems or kidney failure. Any medical conditions you have. Whether you are or may be . What are the risks? Generally, this is a safe procedure. However, problems may occur, including: Infection. Allergic reaction to medicines or dyes that are used. Bleeding from the access site or other locations. Kidney injury, especially in people with impaired kidney function. Stroke (rare). Heart attack (rare). Damage to other structures or organs. What happens before the procedure? Staying hydrated Follow instructions from your health care provider about hydration, which may include: Up to 2 hours before the procedure you may continue to drink clear liquids, such as water, clear fruit juice, black coffee, and plain tea. Eating and drinking restrictions Follow instructions from your health care provider about eating and drinking, which may include: 8 hours before the procedure stop eating heavy meals or foods such as meat, fried foods, or fatty foods. 6 hours before the procedure stop eating light meals or foods, such as toast or cereal. 2 hours before the procedure stop drinking clear liquids. General instructions Ask your health care provider about: ?Changing or stopping your regular medicines. This is especially important if you are taking diabetes medicines or blood thinners. ?Taking medicines such as ibuprofen. These medicines can thin your blood. Do not take these medicines before your procedure if your health care provider instructs you not to, though aspirin may be recommended prior to coronary angiograms. Plan to have someone take you home from the hospital or clinic. You may need to have blood tests or X-rays done. What happens during the procedure? An IV tube will be inserted into one of your veins. You will be given one or more of the following: ?A medicine to help you relax (sedative). ?A medicine to numb the area where the catheter will be inserted into an artery (local anesthetic). To reduce your risk of infection: ?Your health care team will wash or sanitize their hands. ?Your skin will be washed with soap. ?Hair may be removed from the area where the catheter will be inserted. You will be connected to a continuous ECG monitor. The catheter will be inserted into an artery. The location may be in your groin, in your wrist, or in the fold of your arm (near your elbow). A type of X-ray (fluoroscopy) will be used to help guide the catheter to the opening of the blood vessel that is being examined. A dye will be injected into the catheter, and X-rays will be taken. The dye will help to show whereany narrowing or blockages are located in the heart arteries. Tell your health care provider if you have any chest pain or trouble breathing during the procedure. If blockages are found, your health care provider may perform another procedure, such as inserting a coronary stent. The procedure may vary among health care providers and hospitals. What happens after the procedure? After the procedure, you will need to keep the area still for a few hours, or for as long as told by your health care provider. If the procedure is done through the groin, you will be instructed to not bend and not cross your legs. The insertion site will be checked frequently. The pulse in your foot or wrist will be checked frequently. You may have additional blood tests, X-rays, and a test that records the electrical activity of your heart (ECG). Do not drive for 24 hours if you were given a sedative. Summary A coronary angiogram is an X-ray procedure that is used to look into the arteries in the heart. During the procedure, a dye (contrast dye) is injected through a long, thin tube (catheter). The catheter is inserted through the groin, wrist, or arm. Tell your health care provider about any allergies you have, including allergies to contrast dye. After the procedure, you will need to keep the area still for a few hours, or for as long as told by your health care provider. This information is not intended to replace advice given to you by your health care provider. Make sure you discuss any questions you have with your health care provider. Document Released: 09/02/2003 Document Revised: 02/08/2018 Document Reviewed: 12/08/2016 [employer] Patient Education 2020 [employer]. 11/26/2021 13:08:44 Coronary Angiogram Coronary Angiogram A coronary angiogram is an X-ray procedure that is used to examine the arteries in the heart. In this procedure, a dye (contrast dye) is injected through a long, thin tube (catheter). The catheter isinserted through the groin, wrist, or arm. The dye is injected into each artery, then X-rays are taken to show if there is a blockage in the arteries of the heart. This procedure can also show if youhave valve disease or a disease of the aorta, and it can be used to check the overall function of your heart muscle. You may have a coronary angiogram if: You are having chest pain, or other symptoms of angina, and you are at risk for heart disease. You have an abnormal electrocardiogram (ECG) or stress test. You have chest pain and heart failure. You are having irregular heart rhythms. You and your health care provider determine that the benefits of the test information outweigh the risks of the procedure. Let your health care provider know about: Any allergies you have, including allergies to contrast dye. All medicines you are taking, including vitamins, herbs, eye drops, creams, and lpgr-iic-pbusmzw medicines. Any problems you or family members have had with anesthetic medicines. Any blood disorders you have. Any surgeries you have had. History of kidney problems or kidney failure. Any medical conditions you have. Whether you are or may be . What are the risks? Generally, this is a safe procedure. However, problems may occur, including: Infection. Allergic reaction to medicines or dyes that are used. Bleeding from the access site or other locations. Kidney injury, especially in people with impaired kidney function. Stroke (rare). Heart attack (rare). Damage to other structures or organs. What happens before the procedure? Staying hydrated Follow instructions from your health care provider about hydration, which may include: Up to 2 hours before the procedure you may continue to drink clear liquids, such as water, clear fruit juice, black coffee, and plain tea. Eating and drinking restrictions Follow instructions from your health care provider about eating and drinking, which may include: 8 hours before the procedure stop eating heavy meals or foods such as meat, fried foods, or fatty foods. 6 hours before the procedure stop eating light meals or foods, such as toast or cereal. 2 hours before the procedure stop drinking clear liquids. General instructions Ask your health care provider about: ?Changing or stopping your regular medicines. This is especially important if you are taking diabetes medicines or blood thinners. ?Taking medicines such as ibuprofen. These medicines can thin your blood. Do not take these medicines before your procedure if your health care provider instructs you not to, though aspirin may be recommended prior to coronary angiograms. Plan to have someone take you home from the hospital or clinic. You may need to have blood tests or X-rays done. What happens during the procedure? An IV tube will be inserted into one of your veins. You will be given one or more of the following: ?A medicine to help you relax (sedative). ?A medicine to numb the area where the catheter will be inserted into an artery (local anesthetic). To reduce your risk of infection: ?Your health care team will wash or sanitize their hands. ?Your skin will be washed with soap. ?Hair may be removed from the area where the catheter will be inserted. You will be connected to a continuous ECG monitor. The catheter will be inserted into an artery. The location may be in your groin, in your wrist, or in the fold of your arm (near your elbow). A type of X-ray (fluoroscopy) will be used to help guide the catheter to the opening of the blood vessel that is being examined. A dye will be injected into the catheter, and X-rays will be taken. The dye will help to show whereany narrowing or blockages are located in the heart arteries. Tell your health care provider if you have any chest pain or trouble breathing during the procedure. If blockages are found, your health care provider may perform another procedure, such as inserting a coronary stent. The procedure may vary among health care providers and hospitals. What happens after the procedure? After the procedure, you will need to keep the area still for a few hours, or for as long as told by your health care provider. If the procedure is done through the groin, you will be instructed to not bend and not cross your legs. The insertion site will be checked frequently. The pulse in your foot or wrist will be checked frequently. You may have additional blood tests, X-rays, and a test that records the electrical activity of your heart (ECG). Do not drive for 24 hours if you were given a sedative. Summary A coronary angiogram is an X-ray procedure that is used to look into the arteries in the heart. During the procedure, a dye (contrast dye) is injected through a long, thin tube (catheter). The catheter is inserted through the groin, wrist, or arm. Tell your health care provider about any allergies you have, including allergies to contrast dye. After the procedure, you will need to keep the area still for a few hours, or for as long as told by your health care provider. This information is not intended to replace advice given to you by your health care provider. Make sure you discuss any questions you have with your health care provider. Document Released: 09/02/2003 Document Revised: 02/08/2018 Document Reviewed: 12/08/2016 [employer] Patient Education 2020 [employer]. Follow Up Care 11/23/2021 08:36:38 With:Angélica Yates Address: [facility] [address], [address] [place] [id number] Business (1) When:2 weeks With:HARDEEP MCKENZIE Address: [facility] [address] [place] [address] Business (1) When:12/05/2021 15:30:00 [facility]09-17-2022 Evaluation + Plan noteExtracted from: Title:Discharge Note Author:Roz RAMIREZ MD Date: 11/26/21 Discharge To, Anticipated II - Home with home health Discharged to - Home independently Transported by, Anticipated - Family Discharge Diet(s): Fat Modified- Low cholesterol, Low Sodium- 2000 mg (11/25/21 13:23:00) Prescriptions atorvastatin 80 mg Tab, 80 mg= 1 tab(s), Oral, Daily front wheeled walker dx left knee hematoma, 0 Metoprolol tartrate 25 mg Tab, 25 mg= 1 tab(s), Oral, BID outpatient PT dx left knee hematoma, 0 ticagrelor 90 mg oral tablet, 90 mg= 1 tab(s), Oral, BID Home aspirin 81 mg Chew Tab, 81 mg= 1 tab(s), Oral, MonWedFri baclofen, 5 mg, Oral, Bedtime Fish Oil, 1 cap(s), Oral, Bedtime gabapentin 300 mg Cap, 300 mg= 1 cap(s), Oral, TID hydrochlorothiazide-triamterene 25 mg-37.5 mg Cap, 1 cap(s), Oral, Daily losartan 100 mg Tab, 100 mg= 1 tab(s), Oral, Daily magnesium oxide 400 mg Tab, 400 mg= 1 tab(s), Oral, Bedtime montelukast 10 mg Tab, 10 mg= 1 tab(s), Oral, Daily, Not taking Multivitamins and Minerals oral tablet Zyrtec, 10 mg, Oral, Daily, PRN With When Contact Information HARDEEP MCKENZIE 12/05/2021 03:30 PM EDT [address] [place] [address]- Business (1) Additional Instructions: Angélica Yates Within 2 weeks [facility] [address] [place] [address]- Business (1) Additional Instructions: Extracted from: Title:Progress Note * Author:Angélica Yates MD Date:11/25/21 Impression and Plan 1 CAD involving the right coronary artery in the proximal segment status post 2 stents placement yesterday by Dr. Arriaga with no complications. Her other coronary arteries were normal, ejection fraction was normal. Continue antiplatelet therapy and high intensity statin. Cardiac rehab as an outpatient and possible discharge home tomorrow. 2 hypertension currently controlled on Dyazide and losartan 3 dyslipidemia on high intensity statin 4 history of seizure activity that has been quiescent 5 mild oozing at the cardiac cath site in the right groin but without hematoma and likely not consequential Extracted from: Title:APSO Note Author:Roz RAMIREZ MD Date: 1. NSTEMI (non-ST elevated m yocardial infarction) (I21.4: Non-ST elevation (NSTEMI) myocardial infarction) - s/p cardiac cath 11/24/2021 with PCI with LETICIA to RCA - ASA, brilinta, metoprolol, statin - d/w cardiology regarding site, will place a dstat pad, will monitor tonight as patient says she doesn't feel comfortable going home 2. HTN (I10: Essential (primary) hypertension) - triamterene/hctz, losartan 3. Seizure disorder (G40.909: Epilepsy, unspecified, not intractable, without status epilepticus) - gabapentin 4. Obesity due to excess calories (E66.09: Other obesity due to excess calories) - BMI 30 - lifestyle modification, outpatient PCP follow up 5. No contraindication to deep vein thrombosis (DVT) prophylaxis (Z78.9: Other specified health status) - SCDs Orders: atorvastatin, 80 mg = 1 tab(s), Oral, Daily, # 30 tab(s), Refills(s) 0, Pharmacy: [id number], 170.2, cm, 11/23/21 8:42:00 EDT, Height/Length Dosing, 88, kg, 11/23/21 8:42:00 EDT, Weight Dosing metoprolol, 25 mg = 1 tab(s), Oral, BID, X 30 day(s), # 60 tab(s), Refills(s) 0, Pharmacy: [id number], 170.2, cm, 11/23/21 8:42:00 EDT, Height/Length Dosing, 88, kg, 11/23/21 8:42:00 EDT, Weight Dosing ticagrelor, 90 mg = 1 tab(s), Oral, BID, # 60 tab(s), Refills(s) 0, Pharmacy: [id number], 170.2, cm, 11/23/21 8:42:00 EDT, Height/Length Dosing, 88, kg, 11/23/21 8:42:00 EDT, Weight Dosing ECG 12 Lead Adult Referral to Resource Center Referral to Resource Center Extracted from: Title:Progress Note * Author:Angélica Yates MD Date:11/24/21 Impression and Plan 1 crescendo angina, the patient need invasive cardiac evaluation and is scheduled for cardiac catheterization this afternoon. The benefits and potential risks of the procedure were discussed with the patient she is in full endorsement of the approach. 2 hypertension currently controlled on Dyazide and losartan 3 dyslipidemia on no statin 4 history of seizure activity that has been quiescent Extracted from: Title:APSO Note Author:Roz RAMIREZ MD Date: 1. NSTEMI (non-ST elevated m yocardial infarction) (I21.4: Non-ST elevation (NSTEMI) myocardial infarction) - elevated troponin in setting of chest pain on admission - lovenox, metoprolol, statin - echo - consult [facility] cardiology 2. HTN (I10: Essential (primary) hypertension) - triamterene/hctz, losartan 3. Seizure disorder (G40.909: Epilepsy, unspecified, not intractable, without status epilepticus) - gabapentin 4. Obesity due to excess calories (E66.09: Other obesity due to excess calories) - BMI 30 - lifestyle modification, outpatient PCP follow up 5. No contraindication to deep vein thrombosis (DVT) prophylaxis (Z78.9: Other specified health status) - SCDs, lovenox subcutaneous Orders: acetaminophen, 650 mg = 2 tab(s), Tab, Oral, q6hr PRN Pain, Routine, Start date 11/23/21 11:22:00 EDT, 11/23/21 11:22:00 EDT Al hydroxide/Mg hydroxide/simethicone, 30 mL, Susp-Oral, Oral, q6hr PRN Indigestion, STAT, Start date 11/23/21 11:22:00 EDT aspirin, 81 mg = 1 tab(s), Tab-EC, Oral, Daily, Routine, Start date 11/24/21 9:00:00 EDT, 11/23/21 11:22:00 EDT atorvastatin, 80 mg = 2 tab(s), Tab, Oral, Bedtime, Routine, Start date 11/23/21 16:53:00 EDT baclofen, 5 mg = 0.5 tab(s), Tab, Oral, Once a day (at bedtime), Routine, Start date 11/23/21 21:00:00 EDT, 11/23/21 21:00:00 EDT enoxaparin, 90 mg = 0.9 mL, Injection, SubCutaneous, q12hr for 30 day(s), Stop date 12/23/21 17:59:00 EDT, Routine, Start date 11/23/21 18:00:00 EDT gabapentin, 300 mg = 1 cap(s), Cap, Oral, TID, Routine, Start date 11/23/21 22:00:00 EDT, 11/23/21 18:17:00 EDT magnesium hydroxide, 30 mL, Susp-Oral, Oral, q6hr PRN Constipation, STAT, Start date 11/23/21 11:22:00 EDT magnesium oxide, 400 mg = 1 tab(s), Tab, Oral, Bedtime, Routine, Start date 11/23/21 21:00:00 EDT, 11/23/21 18:18:00 EDT metoprolol, 25 mg = 1 tab(s), Tab, Oral, BID, Routine, Start date 11/23/21 21:00:00 EDT morphine, 2 mg = 1 mL, Injection, IV Push, q4hr PRN Pain for 5 day(s), Stop date 11/28/21 11:21:00 EDT, Routine, Start date 11/23/21 11:22:00 EDT, 11/23/21 11:22:00 EDT nitroglycerin, 0.4 mg = 1 tab(s), Tab, SubLingual, q5min PRN Chest pain for 3 dose(s), Stop date Limited # of times, Routine, Start date 11/23/21 11:22:00 EDT, 11/23/21 11:22:00 EDT ondansetron, 4 mg = 2 mL, Injection, IV Push, q6hr PRN Nausea, Routine, Start date 11/23/21 11:22:00 EDT, 11/23/21 11:22:00 EDT Ambulate with Assistance Below the Knee Intermittent Pneumatic Compression Device Cardiac Diet Cardiac Monitoring Chest Pain, AMI Quality Measures Communication Order Consult to Cardiology ECG 12 Lead Adult Echo Transthoracic Complete Evaluate Need For Continued Telemetry Extra Lav Tube Incentive Spirometry Initial Observation Care/Day Moderate 50 min [id number] Intake and Output Lipid Panel Notify Provider Vital Signs Notify Provider Vital Signs NPO Diet Oxygen Protocol Place in Status Precautions Precautions Pulse Oximetry Vital Signs Weight Extracted from: Title:Admission H & P Author:Roz RAMIREZ MD Date :11/23/21 1. Other chest pain (R07.89: Other chest pain) - possible ACS, risk factors age, obesity, HNT - telemetry, troponin, fasting lipid profile, ASA - consult NO cardiology 2. HTN (I10: Essential (primary) hypertension) - triamterene/hctz, losartan 3. Seizure disorder (G40.909: Epilepsy, unspecified, not intractable, without status epilepticus) - gabapentin 4. Obesity due to excess calories (E66.09: Other obesity due to excess calories) - BMI 30 - lifestyle modification, outpatient PCP follow up 5. No contraindication to deep vein thrombosis (DVT) prophylaxis (Z78.9: Other specified health status) - SCDs, heparin subcutaneous pt will be admitted for observation possible discharge in next 24 hours Orders: acetaminophen, 650 mg = 2 tab(s), Tab, Oral, q6hr PRN Pain, Routine, Start date 11/23/21 11:22:00 EDT, 11/23/21 11:22:00 EDT Al hydroxide/Mg hydroxide/simethicone, 30 mL, Susp-Oral, Oral, q6hr PRN Indigestion, STAT, Start date 11/23/21 11:22:00 EDT aspirin, 81 mg = 1 tab(s), Tab-EC, Oral, Daily, Routine, Start date 11/24/21 9:00:00 EDT, 11/23/21 11:22:00 EDT heparin, 5,000 unit(s) = 1 mL, Injection, SubCutaneous, BID, Routine, Start date 11/23/21 21:00:00 EDT, 11/23/21 11:22:00 EDT magnesium hydroxide, 30 mL, Susp-Oral, Oral, q6hr PRN Constipation, STAT, Start date 11/23/21 11:22:00 EDT morphine, 2 mg = 1 mL, Injection, IV Push, q4hr PRN Pain for 5 day(s), Stop date 11/28/21 11:21:00 EDT, Routine, Start date 11/23/21 11:22:00 EDT, 11/23/21 11:22:00 EDT nitroglycerin, 0.4 mg = 1 tab(s), Tab, SubLingual, q5min PRN Chest pain for 3 dose(s), Stop date Limited # of times, Routine, Start date 11/23/21 11:22:00 EDT, 11/23/21 11:22:00 EDT ondansetron, 4 mg = 2 mL, Injection, IV Push, q6hr PRN Nausea, Routine, Start date 11/23/21 11:22:00 EDT, 11/23/21 11:22:00 EDT Ambulate with Assistance Below the Knee Intermittent Pneumatic Compression Device Cardiac Diet Cardiac Monitoring Chest Pain, AMI Quality Measures Communication Order Consult to Cardiology Evaluate Need For Continued Telemetry Incentive Spirometry Intake and Output Lipid Panel Notify Provider Vital Signs Notify Provider Vital Signs Oxygen Protocol Place in Status Precautions Precautions Pulse Oximetry Vital Signs Weight Extracted from: Title:ED Note Author:Reymundo Stacia BrittanyChinmay Date: 1. Other chest pain (R07.89: Other chest pain) 2. HTN (I10: Essential (primary) hypertension) 3. Seizure disorder (G40.909: Epilepsy, unspecified, not intractable, without status epilepticus) 4. Obesity due to excess calories (E66.09: Other obesity due to excess calories) 5. No contraindication to deep vein thrombosis (DVT) prophylaxis (Z78.9: Other specified health status) Orders: ED Physician consult Hospitalist for continued care [facility]08-29-2022 Evaluation note* Encounter Date Diagnosis Assessment Notes Treatment Notes Treatment Clinical Notes Oct, Asymptomatic bilateral carotid artery stenosis (ICD-10 - I65.23) Oct, Other Carotid occlusi ve disease She is asymptomatic at this time with a stable duplex examination. We will follow her on an annual basis with repeat ultrasound. She will continue her current medical regimen [employer] Other 08-23-2022 NotePAIN MANAGEMENT CONSULTATION CONSULTATION DATE: 11/01/2021 CHIEF COMPLAINT: Left shoulder pain. HISTORY OF PRESENT ILLNESS: This is a very pleasant, 81-year-old female who is known to the Pain Clinic very well. The patient reports having left shoulder pain. The patient is a very active individual. The patient enjoys gardening. The patient describes the pain as a 7/10, a sharp sensation. Twisting, pushing, pulling, lifting aggravates the patient's pain. The patient is status post left shoulder replacement. The patient currently takes baclofen 5 mg daily, gabapentin 300 mg t.i.d. and a multivitamin regimen along with the aspirin. The patient has always had difficulty with the left arm subsequent to a fracture along the radius 3+ years ago. The patient's PAST MEDICAL HISTORY / SURGICAL HISTORY / REVIEW OF SYSTEMS are noted in the chart, along with the MEDICATION LIST / ALLERGIES and RADIOLOGICAL IMAGES. PHYSICAL EXAM: GENERAL: Upon physical examination, this is a very pleasant, cooperative female, who does not appear to be in any acute distress. VITAL SIGNS: 183/89 with a heart rate of 72. At a height of 5'7 , the patient weighs 87 kg. FOCUSED EVALUATION: Significant spasming along the trapezius is noted. Cervicothoracic kyphosis is present. Crepitus is noted along the cervicothoracic spine. EXTREMITIES: Ecchymotic areas are noted in her upper extremities bilaterally. Loss of interossei are present. Arthrosis of the digits is present; however, range of motion stays function. Bicipital tear is noted on the left hand side with the muscle spasming along the biceps also on the left hand side. Significant jump response is noted. PSYCHIATRICALLY: The patient maintains a very positive attitude. IMPRESSION: Current working diagnosis is left shoulder pain, trapezius spasm on the left hand side, left biceps tear, bicipital spasm, status post left shoulder replacement, left arm fracture. PLAN: The patient will apply heat rub to the biceps and control the degree of activity that the patient performs, especially with her gardening. The patient will receive a trigger point injection along the trapezius muscle on the left hand side for her shoulder x2 and biceps. The patient understands and would like to proceed. CC[id number] Evaluation note* Encounter Date Diagnosis Assessment Notes Treatment Notes Treatment Clinical Notes July, Left Achilles tendinitis (ICD-10 - M76.62) Lengthy discussion with patient today that due to ongoing concerns and pain, I really think she would be best served by pursuing definitive imaging, in this case an MRI. Certainly the treatment options as pursued by the 2 unit educator did not help. She voices agreement and understanding. [employer] Other 04-13-2022 Evaluation note* Encounter Date Diagnosis Assessment Notes Treatment Notes Treatment Clinical Notes Jun, Impacted cerumen, right ear (ICD-10 - H61.21) See procedure note Jun, Essential (primary) hypertension (ICD-10 - I10) Excellent control seen from there. Certainly patient to call at any time when she desires to report concerns or questions. She voices agreement and understanding. Jun, Other The goal of hypertension as always to have a blood pressure within acceptable limits, with patient staying compliant with medication. Increased activity, monitoring diet, and weight loss are always encouraged. [employer] Other 02-28-2022 Evaluation note* Encounter Date Diagnosis Assessment Notes Treatment Notes Treatment Clinical Notes Apr, Carotid stenosis, bilateral (ICD-10 - I65.23) We reviewed today's carotid duplex studies indicating 50 to 69% stenosis of the right ICA and less than 50% stenosis of the left ICA. She is asymptomatic of her carotid occlusive disease. Discussed recommendation for good medical therapy to include daily aspirin and high intensity statin medications. This patient does not wish to take statin medication, she does report that she takes a fish oil daily. He is uninterested in taking any sort of statin medications. She also does not like the idea of taking aspirin but states that maybe she will take 81 mg aspirin every other day. I did explain to her the Society of vascular medicine's recommendation for good medical therapy to include this high intensity statin medication and daily aspirin however she would like to discuss further with her primary care provider. She was educated on signs and symptoms of carotid occlusive disease and when would be appropriate to return for further evaluation prior to her next scheduled appointment. Otherwise, we will continue to follow her along on an annual basis with routine surveillance studies. She knows to call us with any other issues arise. She verbalizes understanding of all discussion, agrees with this plan, and denies any questions. [employer] Other 01-18-2022 Evaluation note* Encounter Date Diagnosis Assessment Notes Treatment Notes Treatment Clinical Notes Mar, Dizziness (ICD-10 - R42) [employer] Other 10-28-2021 Evaluation note* Encounter Date Diagnosis Assessment Notes Treatment Notes Treatment Clinical Notes Dec, Encounter for screening mammogram for malignant neoplasm of breast (ICD-10 - Z12.31) [employer] Other 10-25-2021 Evaluation note* Encounter Date Diagnosis Assessment Notes Treatment Notes Treatment Clinical Notes Dec, Edema extremities (ICD-10 - R60.0) BILATERAL LE SWELLING. Ms. Marcelino does not have a peripheral venous explanation for her severe swelling and interestingly she has continued swelling up into the thigh. We will go ahead with intravascular ultrasound and iliac vena cavogram to see if she has a component of MTS. I explained to her in detail the nature of the proceduree, and she agrees and wishes to proceed Dec, Former smoker (ICD-10 - Z87.891) [employer] Other 10-04-2021 Evaluation note* Encounter Date Diagnosis Assessment Notes Treatment Notes Treatment Clinical Notes Dec, Chronic venous insufficiency (ICD-10 - I87.2) CVI OR LYMPHEDEMA. We will obtain a follow-up full functional venous duplex examination. There may be some inflow component and it is possible that she would require a venogram with intravascular ultrasound. 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 [facility] Near syncope- Primary Syncope and [facility] Diagnosis Rash- Primary Rash and other nonspecific skin eruption Palpitation Palpitations [facility] Diagnosis Contusion of right foot, initial encounter- Primary Enthesopathy of foot Enthesopathy of ankle and tarsus, unspecified Tendonitis, Achilles, left Achilles bursitis or tendinitis Calcaneal spur of left foot Calcaneal spur Acquired dysmorphic toenail Other specified disease of nail [facility] 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- Primary Exposure keratoconjunctivitis PCO (posterior capsular opacification), right After-cataract, unspecified Pseudophakia, right eye Lens replaced by other means Retinal hemorrhage of left eye Retinal hemorrhage 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, unspecified Combined form of age-related cataract, left eye [facility] Diagnosis Onset Date Resolution Status Subarachnoid hemorrhage acut e Blurred vision, bilateral no neactive [facility] Work Phone: Evaluation note* Diagnosis Nonspecific abnormal electroencephalogram (EEG)- Primary Seizure (HCC) Other convulsions Morbid obesity (HCC) Morbid obesity [facility] Onset Date Resolution Status Subarachnoid hemorrhage acut e Blurred vision, bilateral no neactive Coronary artery disease acut e Essential (primary) hypertension acute Subarachnoid hemorrhage acut e Chronic venous hypertension chronic Lymphedema of both lower extremities chronic [facility] Work Phone: Evaluation note* Diagnosis Nonspecific abnormal electroencephalogram (EEG)- Primary [facility] Diagnosis Onset Date Resolution Status Subarachnoid hemorrhage acut e Blurred vision, bilateral no neactive Coronary artery disease acut e Essential (primary) hypertension acute Subarachnoid hemorrhage acut e Chronic venous hypertension chronic Lymphedema of both lower extremities chronic Anxiety acute [facility] Work Phone: Evaluation note* Diagnosis SAH (subarachnoid hemorrhage) (HCC)- Primary Subarachnoid hemorrhage Cerebral amyloid angiopathy (CODE) Nontraumatic subarachnoid hemorrhage (HCC) Subarachnoid hemorrhage Morbid obesity (HCC) Morbid obesity [facility] SAH (subarachnoid hemorrhage) (HCC)- Primary Subarachnoid hemorrhage Anxiety attack Panic disorder without agoraphobia Physical deconditioning Debility, unspecified [facility] Diagnosis Subdural hematoma (HCC)- Primary Subdural hemorrhage Subdural hematoma (HCC) Subdural hemorrhage Fall, initial encounter Abnormal electrocardiogram (ECG) (EKG) Acute pain due to trauma Midline shift of brain Fall Unspecified fall Midline shift of brain Acute pain due to trauma Hypophosphatasia Disorders of phosphorus metabolism Agitation Other and unspecified special symptom or syndrome, not elsewhere classified [facility] Altered mental status, unspecified altered mental status type- Primary [facility] Diagnosis SDH (subdural hematoma) (HCC)- Primary Subdural hemorrhage Altered mental status, unspecified altered mental status type SDH (subdural hematoma) (HCC) Subdural hemorrhage Acute pain due to trauma Encephalopathy Encephalopathy, unspecified Urinary retention Retention of urine, unspecified Polypharmacy Issue of repeat prescriptions Altered mental status, unspecified altered mental status type Acute post-operative pain Acute blood loss anemia Acute posthemorrhagic anemia Encephalopathy Encephalopathy, unspecified Embolic cerebral infarction (HCC) Urinary retention Retention of urine, unspecified Polypharmacy Issue of repeat prescriptions Altered mental status, unspecified altered mental status type- Primary [facility] Diagnosis Postoperative urinary retention- Primary Kunz catheter in place Other postprocedural status Urinary retention Retention of urine, unspecified [facility] Diagnosis Onset Date Resolution Status Anxiety acute Anxiety acute Essential (primary) hypertension acute Hyponatremia acute Coronary artery disease acut e Essential (primary) hypertension acute Subarachnoid hemorrhage acut e Chronic venous hypertension chronic Lymphedema of both lower extremities chronic History of head injury nonea [facility] Work Phone: Evaluation note* Diagnosis Subdural hematoma (HCC)- Primary Subdural hemorrhage [facility] Diagnosis SDH (subdural hematoma) (HCC) Subdural hemorrhage [facility] - Reported* Type Description Date Medical History Asthma - adult onset Medical History Anemia - iron Medical History Hypertension Medical History OA - multiple joints Medical History Absence seizures Medical History dvt left leg Surgical History Low Back - L 3-5 2000 Surgical History Breast Tumor - benign 1967 Surgical History Breast - benign 1998 Surgical History Eye - left 2001 Surgical History Palate and Tonsils 2003 Surgical History Bilat total Knee 2003 Surgical History Multiple feet - bilat - neuroma Surgical History Left foot 2011 Surgical History Left total shoulder 01/2015 Surgical History Right shoulder - reverse total replacement 09/2015 Surgical History wart removal and radha ateral great toenails removed/Dr. Gandhi 04/2016 Surgical History skin graft left knee 01/2019 Surgical History cataract - right 02/2020 Hospitalization History SEE ABOVE Hospitalization History Respiratory infection 19 96 Hospitalization History trauma left knee after a fall 11/2018 [employer] [facility] [employer] Other History [facility] [employer] Other History general Narrative - Reported* Type Description Date Medical History Asthma - adult onset Medical History Anemia - iron Medical History Hypertension Medical History OA - multiple joints Medical History Absence seizures Medical History dvt left leg Medical History myocardial infarction 11/2021 Surgical History Low Back - L 3-5 2000 Surgical History Breast Tumor - benign 1968 Surgical History Breast - benign 1998 Surgical History Eye - left 2001 Surgical History Palate and Tonsils 2002 Surgical History Bilat total Knee 2003 Surgical History Multiple feet - bilat - neuroma Surgical History Left foot 2011 Surgical History Left total shoulder 01/2015 Surgical History Right shoulder - reverse total replacement 09/2015 Surgical History wart removal and radha ateral great toenails removed/Dr. Gandhi 04/2016 Surgical History skin graft left knee 01/2019 Surgical History cataract - right 02/2020 Surgical History Cardiac Stents x 2 11/2021 Hospitalization History SEE ABOVE Hospitalization History Respiratory infection 19 96 Hospitalization History trauma left knee after a fall 11/2018 Hospitalization History Heart Stent x 2 11/2021 [employer] Other History general Narrative - Reported* Type Description Date Medical History Asthma - adult onset Medical History Anemia - iron Medical History Hypertension Medical History OA - multiple joints Medical History Absence seizures Medical History dvt left leg Medical History myocardial infarction 11/2021 Medical History DVT distal right superficial fem oral vein Surgical History Low Back - L 3-5 2000 Surgical History Breast Tumor - benign 1967 Surgical History Breast - benign 1998 Surgical History Eye - left 2001 Surgical History Palate and Tonsils 2002 Surgical History Bilat total Knee 2003 Surgical History Multiple feet - bilat - neuroma Surgical History Left foot 2011 Surgical History Left total shoulder 01/2015 Surgical History Right shoulder - reverse total replacement 09/2015 Surgical History wart removal and radha ateral great toenails removed/Dr. Gandhi 04/2016 Surgical History skin graft left knee 01/2019 Surgical History cataract - right 02/2020 Surgical History Cardiac Stents x 2 11/2021 Hospitalization History SEE ABOVE Hospitalization History Respiratory infection 19 96 Hospitalization History trauma left knee after a fall 11/2018 Hospitalization History Heart Stent x 2 11/2021 Hospitalization History DVT right distal superfi cial femoral vein 06/2022 [employer] Other Hospital course Narrative No data available for this section [facility] Discharge instructions No data available for this section [facility] Discharge instructions Additional Instructions Elevate your lower extremities Follow-up with your PCP call tomorrow for appointment Please return here if you develop any chest pain, shortness of breath or any [facility] Work Phone: Progress note No data available for this section [facility] for referral (narrative)* - Authorized Specialty Diagnoses / Procedures Referred By Contjessica t Referred To Contact Physical Therapy Diagnoses Contusion of right foot, initial encounter Enthesopathy of foot Tendonitis, Achilles, left Calcaneal spur of left foot Acquired dysmorphic toenail Procedures CONSULT TO PHYSICAL THERAPY Hank Jauregui DPM [address] [place] [address] Referral ID Status Reason Start Date Expiration Date V isits Requested Visits Authorized [id number] Authorized 05/19/2022 08/17/2022 99 99 * Diagnostic Procedure Only (Routine) - Closed Specialty Diagnoses / Procedures Referred By Contac t Referred To Contact XR IMAGING Diagnoses Contusion of right foot, initial encounter Enthesopathy of foot Tendonitis, Achilles, left Calcaneal spur of left foot Acquired dysmorphic toenail Procedures XR FOOT GENERAL 3V AP/LAT/OBL RIGHT RADEX FOOT COMPLETE MINIMUM 3 VIEWS Hakn Jauregui DPM [address] [place] [address] Xr Imaging Referral ID Status Reason Start Date Expiration Date V isits Requested Visits Authorized [id number] Closed Auto-Generate d Referral 05/19/2022 06/18/2023 1 1 [facility] for referral (narrative)* Outpatient Procedure (Routine) - Pending Review Specialty Diagnoses / Procedures Referred By Contact Referred To Contact [facility] Diagnoses Nonspecific abnormal electroencephalogram (EEG) Procedures EPIL EEG LONG EEG EXTENDED MONITORING 61-119 MINUTES ELECTROENCEPHALOGRAM REC COMA/SLEEP ONLY Keisha Eller, YO.WEB PROGRAMMER [address] [place] [address] [facility] [place] [address] [place] [address] Referral ID Status Reason Start Date Expiration Date Visits Requested Visits Authorized [id number] Pending Review Auto-Generat ed Referral 06/21/2023 06/20/2024 1 1 [facility] Referral QuestionNoBuilk Other Reason for visit [facility] Discharge summaryNoBuilk Other Reason for visit Narrativecardiology concerns/referral requestNoBuilk Other Relepl for visit Narrativecardio referral status requestNoBuilk Other Summary Purpose Family History Relationship Condition Age at Onset Recorded Date/T ca father Malignant neoplasm of prostate Unknown Malignant neoplasm of bone Unknown Not Specified Malignant neoplasm of breast Unknown brother Malignant neoplasm of colon Unknown brother Malignant neoplasm of prostate Unknown Unknown Family Member Name Dates Details No pertinent family history: Mother(V49.89, Z78.9) Status:Active Unknown Family Member Name Dates Details No pertinent family history: Mother(V49.89, Z78.9) Status:Active Unknown Family Member Name Dates Details No pertinent family history: Mother(V49.89, Z78.9) Status:Active Unknown Family Member Name Dates Details No pertinent family history: Mother(V49.89, Z78.9) Status:Active Unknown Family Member Name Dates Details No pertinent family history: Mother(V49.89, Z78.9) Status:Active Unknown Family Member Name Dates Details No pertinent family history: Mother(V49.89, Z78.9) Status:Active Relationship Condition Age at Onset Recorded Date/T ca father Malignant neoplasm of prostate Unknown Malignant neoplasm of bone Unknown Not Specified Malignant neoplasm of breast Unknown brother Malignant neoplasm of colon Unknown brother Malignant neoplasm of prostate Unknown brother Hypertension Unknown Diabetes mellitus Unknown Malignant neoplasm Unknown Unknown daughter Adopted Unknown Not Specified Unknown natural son Adopted Unknown sister Unknown Relationship Condition Age at Onset Recorded Date/T ca father Malignant neoplasm of prostate Unknown Malignant neoplasm of bone Unknown Unknown Not Specified Malignant neoplasm of breast Unknown Malignant neoplasm Unknown brother Malignant neoplasm of colon Unknown brother Malignant neoplasm of prostate Unknown brother Hypertension Unknown Diabetes mellitus Unknown daughter Adopted Unknown Malignant neoplasm of breast Unknown natural son Adopted Unknown sister Unknown Advance Directives Date Activated Date Inactivated Comments 08/13/2023 2:10 AM 08/24/2023 4:45 PM Question Answer Comments Documentation of decision pr ocess for this code status: Discussed with patient or surrogate. This is the code status chosen by the patient/surrogate. Date Activated Date Inactivated Comments 07/29/2023 4:47 PM 08/04/2023 12:54 PM Question Answer Comments Documentation of decision pr ocess for this code status: Patient and surrogate unable or unavailable to discuss. There is no previous documentation of code status. Defaulting to Full Code Date Activated Date Inactivated Comments 07/29/2023 4:47 PM 08/04/2023 12:54 PM Question Answer Comments Documentation of decision pr ocess for this code status: Patient and surrogate unable or unavailable to discuss. There is no previous documentation of code status. Defaulting to Full Code Documents on File Type Date Recorded Patient Transport Medic Expl anation Advance Directive(s) 02/20/2020 8:50 AM Date Activated Date Inactivated Comments 05/03/2023 1:50 PM 05/07/2023 6:27 PM Question Answer Comments Full Code Order Discussed With: Patient Documents on File Type Date Recorded Patient Transport Medic Expl anation Advance Directives and Living Will Power of Plunger Scoop Operator Latest Code Status on File Code Status Date Activated Date Inactivated Comments Full Code 12/14/2018 11:15 PM Advance Directive Response Recorded Date/ Time Advance Directives No January 11, 2017 10:18am Advance Directive Response Recorded Date/ Time Advance Directives No January 11, 2017 9:18am Documents on File Type Date Recorded Patient Transport Medic Expl anation Advance Directive(s) 02/20/2020 8:50 AM Latest Code Status on File Code Status Date Activated Date Inactivated Comments Full Code 05/03/2023 1:50 PM Question Answer Comments Full Code Order Discussed With: Patient Latest Code Status on File Code Status Date Activated Date Inactivated Comments Full Code 05/03/2023 1:50 PM 05/07/2023 6:27 PM Question Answer Comments Full Code Order Discussed With: Patient Advance Directive Response Recorded Date/ Time Advance Directives No April 2:08pm Date Activated Date Inactivated Comments 05/03/2023 1:50 PM 05/07/2023 6:27 PM Question Answer Comments Full Code Order Discussed With: Patient Date Activated Date Inactivated Comments 07/29/2023 4:47 PM Date Activated Date Inactivated Comments 07/29/2023 4:47 PM Question Answer Comments Documentation of decision pr ocess for this code status: Patient and surrogate unable or unavailable to discuss. There is no previous documentation of code status. Defaulting to Full Code Date Activated Date Inactivated Comments 08/13/2023 2:10 AM Question Answer Comments Documentation of decision pr ocess for this code status: Discussed with patient or surrogate. This is the code status chosen by the patient/surrogate. Date Activated Date Inactivated Comments 07/29/2023 4:47 PM 08/04/2023 12:54 PM Question Answer Comments Documentation of decision pr ocess for this code status: Patient and surrogate unable or unavailable to discuss. There is no previous documentation of code status. Defaulting to Full Code Date Activated Date Inactivated Comments 08/13/2023 2:10 AM Date Activated Date Inactivated Comments 08/13/2023 2:10 AM 08/24/2023 4:45 PM Discharge Instructions * Discharge Instr - Activity* Erikc Philip RN - 12/18/2018 4:20 PM EDT As tolerated * Discharge Instr - Diet* Erick Philip RN - 12/18/2018 4:20 PM EDT ? Good nutrition is important when healing from an illness, injury, or surgery. Follow any nutrition recommendations given to you during your hospital stay. ? If you were given an oral nutrition supplement while in the hospital, continue to take this supplement at home. You can take it with meals, in-between meals, and/or before bedtime. These supplements can be purchased at most local grocery stores, pharmacies, and [employer]st[facility]. ? If you have any questions about your diet or nutrition, call the hospital and ask for the dietitian. * Discharge Instr - NADINE* Erick Philip RN - 12/18/2018 10:59 AM EDT Continuity of Care Form Patient Name: Carly Marcelino : 1940 Admit date: 12/14/2018 Discharge date: 12/18/2018 Code Status Order: Full Code Advance Directives: Advance Care Flowsheet Documentation Date/Time Healthcare Directive Type of Healthcare Directive Copy in Chart Healthcare Agent Appointed Healthcare Agent's Name Healthcare Agent's Phone Number 12/14/18 [phone] No, patient does not have an advance directive for healthcare treatment -- -- -- -- -- Admitting Physician: Laurie Lemus DO PCP: HARDEEP MCKENZIE Discharging Nurse: Tatianna Discharging Hospital Unit/Room#: Discharging Unit Phone Number: [phone] Emergency Contact: Extended Emergency Contact Information Primary Emergency Contact: Hebert Ness Mobile Relation: Child Past Surgical History: History reviewed. No pertinent surgical history. Immunization History: Immunization History Administered Date(s) Administered Influenza, Quadv, IM, PF (6 mo and older Fluzone, Flulaval, Fluarix, and 3 yrs and older Afluria) 12/15/2018 Active Problems: Patient Active Problem List Diagnosis Code Left leg cellulitis: Secondary to wound infection following hematoma evacuation L03.116 Fall W19.XXXA Essential hypertension I10 Normocytic anemia D64.9 At risk for malnutrition Z91.89 Open wound of left knee S81.002A Traumatic hematoma of knee, left, sequela S80.02XS Anemia, normocytic normochromic D64.9 Hypocalcemia E83.51 Hypoalbuminemia E88.09 LALY (acute kidney injury) (HCC) N17.9 Wound infection: Left knee status post hematoma evacuation T14.8XXA, L08.9 Isolation/Infection: Isolation No Isolation Nurse Assessment: Last Vital Signs: BP 138/64 Pulse 66 Temp 97.9 F (36.6 C) (Oral) Resp 15 Ht 5' 6 (1.676 m) Wt 196 lb 12.8 oz (89.3 kg) SpO2 98% BMI 31.76 kg/m Last documented pain score (0-10 scale): Pain Level: 7 Last Weight: Wt Readings from Last 1 Encounters: 12/18/18 196 lb 12.8 oz (89.3 kg) Mental Status: oriented IV Access: - None Nursing Mobility/ADLs: Walking Independent Transfer Independent Bathing Independent Dressing Independent Toileting Independent Feeding Independent Monument Setter Assisted Med Delivery none and whole Wound Care Documentation and Therapy: Wound 12/14/18 Knee Anterior;Left wound edges non-approximate looks as eschar with brown drainage, tunling & swollen (Active) Wound Image 12/18/2018 8:45 AM Wound Traumatic 12/18/2018 8:45 AM Dressing Status Changed 12/18/2018 8:45 AM Dressing Changed Changed/New 12/18/2018 8:45 AM Dressing/Treatment Moist to moist;ABD;Dry Dressing;Garret Wrap;Pharmaceutical agent (see MAR) 12/18/2018 8:45 AM Wound Cleansed Wound cleanser 12/18/2018 8:45 AM Dressing Change Due 12/18/18 12/18/2018 8:45 AM Wound Length (cm) 5 cm 12/18/2018 8:45 AM Wound Width (cm) 8 cm 12/18/2018 8:45 AM Wound Depth (cm) 0.8 cm 12/18/2018 8:45 AM Wound Surface Area (cm^2) 40 cm^2 12/18/2018 8:45 AM Change in Wound Size % (l*w) -66.67 12/18/2018 8:45 AM Wound Volume (cm^3) 32 cm^3 12/18/2018 8:45 AM Wound Healing % -167 12/18/2018 8:45 AM Undermining Starts ___ O'Clock 1 12/18/2018 8:45 AM Undermining Ends___ O'Clock 5 12/18/2018 8:45 AM Undermining Maxium Distance (cm) 3 12/18/2018 8:45 AM Wound Assessment Red;Brown;Slough;Painful 12/18/2018 8:45 AM Drainage Amount Moderate 12/18/2018 8:45 AM Drainage Description Serosanguinous;Yellow 12/18/2018 8:45 AM Odor None 12/17/2018 8:00 PM Margins Epibole (rolled edges);Unattached edges 12/17/2018 8:00 PM Kaley-wound Assessment Edema;Hyperpigmented;Blanchable erythema 12/18/2018 8:45 AM Non-staged Wound Description Full thickness 12/18/2018 8:45 AM Number of days: 3 Elimination: Continence: Bowel: yes Bladder: Yes Urinary Catheter: None Colostomy/Ileostomy/Ileal Conduit: No Date of Last BM: 12/18/2018 Intake/Output Summary (Last 24 hours) at 12/18/2018 1059 Last data filed at 12/18/2018 1035 Gross per 24 hour Intake 840 ml Output 500 ml Net 340 ml I/O last 3 completed shifts: In: 900 [P.O.:600; IV Piggyback:300] Out: 500 [Urine:500] Safety Concerns: At Risk for Falls Impairments/Disabilities: None Nutrition Therapy: Current Nutrition Therapy: - Oral Diet: General Routes of Feeding: Oral Liquids: No Restrictions Daily Fluid Restriction: no Last Modified Barium Swallow with Video (Video Swallowing Test): not done Treatments at the Time of Hospital Discharge: Respiratory Treatments: n/a Oxygen Therapy: is not on home oxygen therapy. Ventilator: - No ventilator support Rehab Therapies: Wound care Weight Bearing Status/Restrictions: No weight bearing restirctions Other Medical Equipment (for information only, NOT a DME order): cane Other Treatments: Patient's personal belongings (please select all that are sent with patient): Glasses, Dentures upper and lower RN SIGNATURE: MANAGEMENT/SOCIAL WORK SECTION Inpatient Status Date: 12-14-18 Readmission Risk Assessment Score: Readmission Risk Risk of Unplanned Readmission: 11 [facility] Address: Phone: Fax: Dialysis Facility (if applicable) Name: Address: Dialysis Schedule: Phone: Fax: Circus Rider/Cnc Operator signature: ICIAN SECTION Prognosis: Good Condition at Discharge: Stable Rehab Potential (if transferring to Rehab): Good Recommended Labs or Other Treatments After Discharge: Antibiotics per ID Transition to oral therapy with doxycycline and Levaquin Wound care: follow-up outpatient at [facility] Orthopedic evaluation and f/u as scheduled May need Plastics for grafting when infection cleared Transfuse as needed Monitor and control blood pressure Correct electrolytes Dietary supplementation Physician Certification: I certify the above information and transfer of Carly Marcelino is necessary for the continuing treatment of the diagnosis listed and that she requires Home Care for less 30 days. Update Admission H&P: Principal Problem: Wound infection: Left knee status post hematoma evacuation Active Problems: Left leg cellulitis: Secondary to wound infection following hematoma evacuation Fall Essential hypertension Normocytic anemia At risk for malnutrition Open wound of left knee Traumatic hematoma of knee, left, sequela Anemia, normocytic normochromic Hypocalcemia Hypoalbuminemia LALY (acute kidney injury) (HCC) Resolved Problems: * No resolved hospital problems. * PHYSICIAN SIGNATURE: * Additional Instructions* Erick Philip RN - 12/18/2018 Orthopedic Instructions: Weight bearing status: Weight bearing as tolerated for the left leg Keep dressing clean and dry. Continue daily wound care/dressing changes as instructed by wound care team Drink plenty of fluids. Call the office or come to Emergency Room if signs of infection appear (hot, swollen, red, drainingpus, fever) Take medications as prescribed. Follow up with your orthopedic surgeon within 7-10 days of discharge. A plastic surgeon will likelybe needed to cover the wound on your leg eventually If you need help finding a plastic surgeon please call the office of Dr. Estrada - he was the orthopedic surgeon director of curriculum and instruction at [place] when you are admitted. Call [phone] if you need help finding an orthopedic surgeon and/or plastic surgeon documented in this encounter History of Present Illness * Zulema Holguin APRN - [place] - 12/18/2018 4:36 PM EDT [facility] - Progress Note Today's Date and Time: 12/18/2018, 4:36 PM Impression : 1. Traumatic hematoma secondary to fall Status post unroofing 2. Non healing Lt LE surgical wound 3. Cellulitis LLE 4. Venous stasis dermatitis with chronic left lower extremity edema 5. PVD 6. CKD 7. HTN 8. Obesity Recommendations: The patient has been on intravenous antimicrobial therapy with Vancomycin and Zosyn since admissionand I would continue this to the time of discharge At discharge transition to Doxycycline 100 mg po BID x 7 days and Levaquin 750 mg po daily x 7 days The patient would benefit from compression therapy especially in the left lower extremity. Continue local wound care with Dakin's topically as there is some slough in the wound bed. Plan for follow up with Dr Waters in one week -if this is feasible for the patient to do. She lives close to [facility] Decision Making/Summary/Discussion:12/18/2018 Infection Control Recommendations Comins Precautions Antimicrobial Stewardship Recommendations Targeted therapy IV to oral conversion Coordination of Outpatient Care: Estimated Length of IV antimicrobials:To discharge Patient will need Midline Catheter Insertion: Patient will need PICC line Insertion: Patient will need: Home IV , Infusion Center, SNF, LTAC: No Patient will need outpatient wound care: Yes Chief complaint/reason for consultation: Knee Infection History of Present Illness: Carly Marcelino is a 78 y.o.-year-old female who was initially admitted on 12/14/2018. Patient seen at the request of Dr. Lemus INITIAL HISTORY: Patient is a 78-year-old woman who is independent with only previous minor health related conditions. She reports that on November 10 she tripped and fell at [employer] injuring her left knee. A large hematoma developed, and approximately 1 week later she went and saw her orthopedic doctor. The hematoma was evacuated at that time. Approximately 1 week ago she presented to the wound clinic for follow-up. At that time the wound was D removed, and a wound VAC was placed. Patient states that by December 12, she started to feel a fever in her knee . On December 14, her home care nurse directed her to the ER. She denies any fevers but does report that she did suffer from chills at that time. She reported to [facility] where she was then transferred to [facility] for further care. At the time of admission she was placed on Zosyn and vancomycin. 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 Orthopedics saw the patient on December 15 and felt that there was no intervention needed, with low concern for intra-articular joint involvement at this time. They recommended plastic surgery consults for skin coverage at a later date as well as an infectious disease consult for antibiotic management. Wound care has also seen the patient and is recommending twice daily dressing changes with quarter strength Dakin's solution. On December 15 patient's sed rate was elevated to 70, and CRP 98.6. WBCs have been within normal limits. CURRENT EXAMINATION: 12/18/2018 Pt seen in bed. She denies fevers or malaise. Reports that she is going home today No fevers or chills The wound was not examined today, it is wrapped with an GARRET bandage. Pt is getting ready for discharge. Pts LLE wound 10-8 Afebrile VSS Labs, X rays reviewed: 12/18/2018 BUN: 27 Cr: 1.02 WBC: 6.2 Hb: 8.2 Plat: 262 Cultures: Urine: Blood: 10-6 x 2 no growth to date Sputum : Wound: 10-7 Moderate gram pos rods, few gram pos cocci in clusters, few gram neg rods Discussed with patient, RN. I have personally reviewed the past medical history, past surgical history, medications, social history, and family history, and I have updated the database accordingly. Past Medical History: Past Medical History: Diagnosis Date Essential hypertension Past Surgical History: History reviewed. No pertinent surgical history. Medications: levofloxacin 750 mg Oral Daily doxycycline hyclate 100 mg Oral 2 times per day magnesium oxide 400 mg Oral Daily sodium hypochlorite Irrigation BID docusate sodium 100 mg Oral BID baclofen 10 mg Oral Daily gabapentin 300 mg Oral TID losartan 100 mg Oral Daily triamterene-hydrochlorothiazide 1 tablet Oral Daily zafirlukast 20 mg Oral BID cetirizine 10 mg Oral Daily sodium chloride flush 10 mL Intravenous 2 times per day enoxaparin 40 mg Subcutaneous Daily Social History: Social History Socioeconomic History Marital status: Spouse name: Not on file Number of children: Not on file Years of education: Not on file Highest education level: Not on file Occupational History Not on file Social Needs Financial resource strain: Not on file Food insecurity: Worry: Not on file Inability: Not on file Transportation needs: Medical: Not on file Non-medical: Not on file Tobacco Use Smoking status: Former Smoker Last attempt to quit: 1977 Years since quittin.7 Smokeless tobacco: Never Used Substance and Sexual Activity Alcohol use: Not on file Drug use: Not on file Sexual activity: Not on file Lifestyle Physical activity: Days per week: Not on file Minutes per session: Not on file Stress: Not on file Relationships Social connections: Talks on phone: Not on file Gets together: Not on file Attends jehovah's witness service: Not on file Active member of club or organization: Not on file Attends meetings of clubs or organizations: Not on file Relationship status: Not on file Intimate partner violence: Fear of current or ex partner: Not on file Emotionally abused: Not on file Physically abused: Not on file Forced sexual activity: Not on file Other Topics Concern Not on file Social History Narrative Not on file Family History: No family history on file. Allergies: Dilantin [phenytoin sodium extended]; Depakote [divalproex sodium]; Labetalol; Norvasc [amlodipine]; Procardia [nifedipine]; and Tegretol [carbamazepine] Review of Systems: Constitutional: No fevers or chills. No systemic complaints Head: No headaches Eyes: No double vision or blurry vision. No conjunctival inflammation. ENT: No sore throat or runny nose.. No hearing loss, tinnitus or vertigo. Cardiovascular: No chest pain or palpitations.No shortness of breath. No LEMOS Lung: No shortness of breath or cough. No sputum production Abdomen: No nausea, vomiting, diarrhea, or abdominal pain.. No cramps. Genitourinary: No increased urinary frequency, or dysuria. No hematuria. No suprapubic or CVA pain Musculoskeletal: No muscle aches or pains. No joint effusions, swelling or deformities Hematologic: No bleeding or bruising. Neurologic: No headache, weakness, numbness, or tingling. Integument: LLE wound, infection and tenderness Psychiatric: No depression. Endocrine: No polyuria, no polydipsia, no polyphagia. Physical Examination : No data found. General Appearance: Awake, alert, and in no apparent distress Head: Normocephalic, no trauma Eyes: Pupils equal, round, reactive to light and accommodation; extraocular movements intact; sclera anicteric; conjunctivae pink. No embolic phenomena. ENT: Oropharynx clear, without erythema, exudate, or thrush. No tenderness of sinuses. Mouth/throat: mucosa pink and moist. No lesions. Dentition in good repair. Neck:Supple, without lymphadenopathy. Thyroid normal, No bruits. Pulmonary/Chest: Clear to auscultation, without wheezes, rales, or rhonchi. No dullness to percussion. Cardiovascular: Regular rate and rhythm without murmurs, rubs, or gallops. Abdomen: Soft, non tender. Bowel sounds normal. No organomegaly All four Extremities: No cyanosis, clubbing, edema, or effusions. Neurologic: No gross sensory or motor deficits. Skin: Warm and dry with good turgor. Signs of severe peripheral arterial and venous insufficiency. Large Lt medial wound with surrounding cellulitic changes Medical Decision Making -Laboratory: I have independently reviewed/ordered the following labs: CBC with Differential: Recent Labs 12/16/18 0443 12/17/18 0556 12/18/18 0524 WBC 6.7 5.1 6.2 HGB 7.6* 8.1* 8.2* HCT 25.0* 26.3* 26.5* PLT 224 216 262 LYMPHOPCT 14* -- -- MONOPCT 8 -- -- BMP: Recent Labs 12/17/18 0556 12/18/18 0524 NA 137 140 K 4.0 4.0 CL 100 102 CO2 27 25 BUN 23 27* CREATININE 1.04* 1.02* Hepatic Function Panel: No results for input(s): PROT, LABALBU, BILIDIR, IBILI, BILITOT, ALKPHOS, ALT, AST in the last 72 hours. No results for input(s): RPR in the last 72 hours. No results for input(s): HIV in the last 72 hours. No results for input(s): BC in the last 72 hours. Lab Results Component Value Date RBC 2.87 12/18/2018 WBC 6.2 12/18/2018 Lab Results Component Value Date CREATININE 1.02 12/18/2018 GLUCOSE 89 12/18/2018 Medical Decision Making-Imaging: EXAMINATION: THREE XRAY VIEWS OF THE LEFT KNEE 12/15/2018 3:55 pm COMPARISON: None. HISTORY: ORDERING SYSTEM PROVIDED HISTORY: infection TECHNOLOGIST PROVIDED HISTORY: infection Reason for Exam: infection FINDINGS: There is a large soft tissue wound along the medial aspect of the left knee. There are several adjacent lucencies concerning for soft tissue gas. The sequelae of left knee arthroplasty is noted. There is no disruption of the orthopedic hardware identified. No lucency is identified surrounding the orthopedic hardware. There is no joint effusion evident. Medical Decision Ikgmvw-Divtbswm-Uswfb: 12/16/2018 5:49 PM - Bebeto, Ebony Incoming Lab Results From [employer] Specimen Information: Wound Component Collected Lab Specimen Description 12/15/2018 12:37 AM [employer] .WOUND LEFT Special Requests 12/15/2018 12:37 AM [facility] NOT REPORTED Direct Exam Abnormal 12/15/2018 12:37 AM [facility] MODERATE NEUTROPHILS Direct Exam Abnormal 12/15/2018 12:37 AM [facility] MODERATE GRAM POSITIVE RODS Direct Exam Abnormal 12/15/2018 12:37 AM [facility] FEW GRAM POSITIVE COCCI IN CLUSTERS Direct Exam Abnormal 12/15/2018 12:37 AM [facility] FEW GRAM NEGATIVE RODS Culture 12/15/2018 12:37 AM [facility] CULTURE IN PROGRESS Medical Decision Making-Other: Note: Labs, medications, radiologic studies were reviewed with personal review of films Moderate Large amounts of data were reviewed Discussed with nursing Staff, business continuity planner Infection Control and Prevention measures reviewed All prior entries were reviewed Administer medications as ordered Prognosis: Good Discharge planning reviewed Follow up as outpatient. Thank you for allowing us to participate in the care of this patient. Please call with questions. YO ROJAS CNP Pager: - Office: * Nadia Clinton, FIDEL, LD - 12/18/2018 1:54 PM EDT Nutrition Assessment Type and Reason for Visit: Reassess Nutrition Recommendations: -Continue general diet as tolerated -Continue Ari supplements BID -Will continue to monitor po intake and wound healing Nutrition Assessment: Pt improving from a nutritional standpoint aeb pt consuming 75-100% of her meals. Pt remains at nutritional risk d/t traumatic wound to Lt knee. No significant wt loss noted since admission. Will continue supplements to compliment po intake and aide in wound healing progression. Malnutrition Assessment: Malnutrition Status: At risk for malnutrition Context: Acute illness or injury Findings of the 6 clinical characteristics of malnutrition (Minimum of 2 out of 6 clinical characteristics is required to make the diagnosis of moderate or severe Protein Calorie Malnutrition based on AND/ASPEN Guidelines): 1. Energy Intake-Greater than 75% of estimated energy requirement, Unable to assess 2. Weight Loss-No significant weight loss, 3. Fat Loss-No significant subcutaneous fat loss, 4. Muscle Loss-No significant muscle mass loss, 5. Fluid Accumulation-Mild fluid accumulation, Extremities 6. Job Service Consultant Strength-Not measured Nutrition Risk Level: Moderate Nutrient Needs: Estimated Daily Total Kcal: 4194-1671 kcal/day Estimated Daily Protein (g): 70-90 gm pro/day Nutrition Diagnosis: Problem: Increased nutrient needs Etiology: related to Increased demand for energy/nutrients(wound healing ) ? Signs and symptoms: as evidenced by Presence of wounds Objective Information: Wound Type: Open Wounds(Traumatic wound to left knee) Current Nutrition Therapies: Oral Diet Orders: General Oral Diet intake: 76-100% Oral Nutrition Supplement (ONS) Orders: Wound Healing Oral Supplement ONS intake: Unable to assess Anthropometric Measures: Ht: 5' 6 (167.6 cm) Current Body Wt: 196 lb 11.2 oz (89.2 kg) Admission Body Wt: 196 lb 11.2 oz (89.2 kg) % Weight Change: , No wt hx in EMR [place] Body Wt: 130 lb (59 kg), % [place] Body 151% BMI Classification: BMI 30.0 - 34.9 Obese Class I Nutrition Interventions: Continue current diet, Continue current ONS Continued Inpatient Monitoring, Education Not Indicated Nutrition Evaluation: Evaluation: Goal achieved Goals: Oral intakes to meet at least 75% of estimated nutrition needs. Monitoring: Nutrition Progression, Meal Intake, Pertinent Labs, Supplement Intake, Diet Tolerance, Skin Integrity, Wound Healing, I&O, Weight, Monitor Bowel Function Contact Number: [phone] * Laurie Lemus, DO - 12/18/2018 10:48 AM EDT [facility] IN-PATIENT SERVICE [facility] Progress Note 12/18/2018 10:55 AM Name: Carly Marcelino Acct: [id number] Room: IP Day: 4 Admit Date: 12/14/2018 10:55 PM PCP: HARDEEP MCKENZIE Code Status: Full Code Subjective: C/C: Wound infection: S/p hematoma evacuation Interval History Status: Stable Pain controlled Doing okay with diet No fever chills or sweats Data Base Updates: WBC 6.2 k/uL RBC 2.87Low m/uL Hemoglobin 8.2Low BUN 27High mg/dL CREATININE 1.02High Brief History: As documented in the medical record: This is a 78-year-old female that fell approximately 1 month ago. She developed a hematoma of the left knee and been following with the wound care center. Approximately 1 week ago she had the hematoma evacuated and the wound care office and was started on amoxicillin. Since that time sheis had increased swelling, redness and pain and presented to the outside facility and was transferred here for further evaluation. Results for CARLY MARCELINO ( ) as of 12/16/2018 19:16 Ref. Range 09/07/2011 10:23 12/15/2018 10:25 12/16/2018 04:43 Creatinine Latest Ref Range: 0.50 - 0.90 mg/dL 0.95 1.27 (H) 1.05 (H) The patient was admitted Antibiotics initiated Infectious disease was consulted Blood pressure monitored and controlled Orthopedic reevaluation requested Her renal function was carefully observed The patient responded well to therapy DC planning was initiated The patient was instructed to follow up with their PCP, HARDEEP MCKENZIE in one week Medications: Allergies: Allergies Allergen Reactions Dilantin [Phenytoin Sodium Extended] Anaphylaxis Depakote [Divalproex Sodium] Other (See Comments) Fine motor tremors Labetalol Other (See Comments) Intolerance Norvasc [Amlodipine] intolterance Procardia [Nifedipine] intolerance Tegretol [Carbamazepine] Itching Current Meds: Scheduled Meds: sodium hypochlorite Irrigation BID docusate sodium 100 mg Oral BID vancomycin (VANCOCIN) intermittent dosing (placeholder) Other RX Placeholder vancomycin 1,250 mg Intravenous Q24H baclofen 10 mg Oral Daily gabapentin 300 mg Oral TID losartan 100 mg Oral Daily magnesium oxide 400 mg Oral Daily triamterene-hydrochlorothiazide 1 tablet Oral Daily zafirlukast 20 mg Oral BID cetirizine 10 mg Oral Daily sodium chloride flush 10 mL Intravenous 2 times per day enoxaparin 40 mg Subcutaneous Daily piperacillin-tazobactam 3.375 g Intravenous Q8H Continuous Infusions: sodium chloride 100 mL/hr at 12/15/18 0046 PRN Meds: albuterol, albuterol, sodium chloride, morphine, sodium chloride flush, acetaminophen Data: Past Medical History: has a past medical history of Essential hypertension. Social History: reports that she quit smoking about 42 years ago. She has never used smokeless tobacco. Family History: No family history on file. Vitals: BP 138/64 Pulse 66 Temp 97.9 F (36.6 C) (Oral) Resp 15 Ht 5' 6 (1.676 m) Wt 196 lb 12.8 oz (89.3 kg) SpO2 98% BMI 31.76 kg/m Temp (24hrs), Av.4 F (36.9 C), Min:97.9 F (36.6 C), Max:98.9 F (37.2 C) No results for input(s): POCGLU in the last 72 hours. I/O (24Hr): Intake/Output Summary (Last 24 hours) at 12/18/2018 1055 Last data filed at 12/18/2018 1035 Gross per 24 hour Intake 840 ml Output 500 ml Net 340 ml Review of Systems: Review of Systems Constitutional: Negative for chills, diaphoresis and fever. Respiratory: Positive for cough (Has had scant white sputum). Negative for shortness of breath and wheezing. Cardiovascular: Negative for chest pain and palpitations. Gastrointestinal: Negative for abdominal pain, nausea and vomiting. Genitourinary: Negative for flank pain and hematuria. Skin: Positive for wound (Wound pain is controlled). Physical Examination: Physical Exam Constitutional: She is oriented to person, place, and time. No distress. HENT: Head: Normocephalic. Nose: Nose normal. Eyes: Conjunctivae are normal. No scleral icterus. Neck: Neck supple. No tracheal deviation present. Cardiovascular: Normal rate and regular rhythm. Pulmonary/Chest: Effort normal and breath sounds normal. No respiratory distress. She has no wheezes. She has no rales. She exhibits no tenderness. Abdominal: Soft. Bowel sounds are normal. She exhibits no distension. There is no tenderness. Musculoskeletal: She exhibits edema. She exhibits no tenderness. Neurological: She is alert and oriented to person, place, and time. Skin: Skin is warm and dry. She is not diaphoretic. Wound appears stable Granulation noted Erythema and induration surrounding the wound persists Stasis dermatitis at the ankles Vitals reviewed. Prior photo: Labs: Hematology: Recent Labs 12/16/18 0443 12/17/18 0556 12/18/18 0524 WBC 6.7 5.1 6.2 HGB 7.6* 8.1* 8.2* HCT 25.0* 26.3* 26.5* PLT 224 216 262 Chemistry: Recent Labs 12/16/18 0443 12/17/18 0556 12/18/18 0524 NA 138 137 140 K 4.4 4.0 4.0 CL 102 100 102 CO2 25 27 25 GLUCOSE 91 86 89 BUN 17 23 27* CREATININE 1.05* 1.04* 1.02* CALCIUM 8.5* 8.8 9.1 CAION -- .19 -- No results for input(s): PROT, LABALBU, LABA1C, Y2XOXIV, A5IQXQD, FT4, TSH, AST, ALT, LDH, GGT, ALKPHOS, BILITOT, BILIDIR, AMMONIA, AMYLASE, LIPASE, LACTATE, CHOL, TRIG, HDL, LDLCALC, LDLDIRECT, LABVLDL, BNP, TROPONINI, CKTOTAL, CKMB, CKMBINDEX in the last 72 hours. Lab Results Component Value Date/Time SPECIAL NOT REPORTED 12/15/2018 12:37 AM No results found for: POCPH, PHART, PH, POCPCO2, XUM5CCN, PCO2, POCPO2, PO2ART, PO2, POCHCO3, CIR2FZK, HCO3, NBEA, PBEA, BEART, BE, THGBART, THB, CXY5HID, OPQC9IZT, Z2MRAXUU, O2SAT, FIO2 Radiology: Xr Knee Left (3 Views) Result Date: 12/15/2018 Marked soft tissue swelling with large wound along the medial aspect of the left knee. There are several adjacent lucencies within the soft tissue concerning for soft tissue gas. No radiographic findings to suggest acute osteomyelitis. Assessment: Primary Problem Wound infection Active Hospital Problems Diagnosis Date Noted Wound infection: Left knee status post hematoma evacuation [T14.8XXA, L08.9] 12/18/2018 Anemia, normocytic normochromic [D64.9] 12/16/2018 Hypocalcemia [E83.51] 12/16/2018 Hypoalbuminemia [E88.09] 12/16/2018 LALY (acute kidney injury) (HCC) [N17.9] 12/16/2018 Fall [W19.XXXA] 12/15/2018 Essential hypertension [I10] 12/15/2018 Normocytic anemia [D64.9] 12/15/2018 At risk for malnutrition [Z91.89] 12/15/2018 Open wound of left knee [S81.002A] 12/15/2018 Traumatic hematoma of knee, left, sequela [S80.02XS] 12/15/2018 Left leg cellulitis: Secondary to wound infection following hematoma evacuation [L03.116] 12/14/2018 Plan: Antibiotics per ID Transition to oral therapy with doxycycline and Levaquin Wound care: follow-up outpatient at [facility] Orthopedic evaluation and f/u as scheduled May need Plastics for grafting when infection cleared Transfuse as needed Monitor and control blood pressure Correct electrolytes Check bun and creatinine Cozaar on hold Maxide on hold Dietary supplementation DVT prophylaxis Discharge planning Med rec done NADINE done Home care orders placed DCP 37 min+ Will discharge when arrangements complete and ok with other services. Follow-up with PCP in one week, HARDEEP MCKENZIE Notify PCP of discharge PHARMACY TO DOSE VANCOMYCIN IP CONSULT TO ORTHOPEDIC SURGERY IP CONSULT TO INFECTIOUS DISEASES Laurie Lemus DO 12/18/2018 10:55 AM * Saskia Marquez, RN - 12/18/2018 8:45 AM EDT [facility] Wound Ostomy Nurse Follow up Note NAME: Carly Marcelino AGE: 78 y.o. GENDER: female : 1940 TODAY'S DATE: 12/18/2018 Subjective Reason for WOC Nurse Evaluation and Assessment: S/P evacuation / unroofing of hematoma of the left medial knee, performed at [facility]. Had been receiving NPWT to the wound until wound appeared worse to home care nurse who applied moist saline guaze and referred patient for evaluation. Ortho Service examined with no surgical intervention required. Suggests Plastic referral in the future for possible grafting. 12/17/18 ID consulted for antibiotics Objective BP 138/64 Pulse 66 Temp 97.9 F (36.6 C) (Oral) Resp 15 Ht 5' 6 (1.676 m) Wt 196 lb 12.8 oz (89.3 kg) SpO2 98% BMI 31.76 kg/m LABS: WBC: Lab Results Component Value Date WBC 6.2 12/18/2018 H/H: Lab Results Component Value Date HGB 8.2 12/18/2018 HCT 26.5 12/18/2018 PTT: No results found for: APTT, PTT[APTT} PT/INR: Lab Results Component Value Date PROTIME 10.9 12/15/2018 INR 1.0 12/15/2018 HgBA1c: No results found for: LABA1C Assessment Vignesh Risk Score: Vignesh Scale Score: 20 Patient Active Problem List Diagnosis Code Left leg cellulitis L03.116 Fall W19.XXXA Essential hypertension I10 Normocytic anemia D64.9 At risk for malnutrition Z91.89 Open wound of left knee S81.002A Traumatic hematoma of knee, left, sequela S80.02XS Anemia, normocytic normochromic D64.9 Hypocalcemia E83.51 Hypoalbuminemia E88.09 LALY (acute kidney injury) (HCC) N17.9 Measurements: 12/18/18 0845 Wound 12/14/18 Knee Anterior;Left wound edges non-approximate looks as eschar with brown drainage, tunling & swollen Date First Assessed/Time First Assessed: 12/14/18 2315 Present on Hospital Admission: Yes Primary Wound Type: Traumatic Location: Knee Wound Location Orientation: Anterior;Left Wound Description (Comments): wound edges non- approximate looks as e... Wound Image Wound Traumatic Dressing Status Changed Dressing Changed Changed/New Dressing/Treatment Moist to moist;ABD;Dry Dressing;Garret Wrap;Pharmaceutical agent (see MAR) (GARRET toes to knee; 03/15) Wound Cleansed Wound cleanser (Dakins) Dressing Change Due 12/18/18 Wound Length (cm) 5 cm Wound Width (cm) 8 cm Wound Depth (cm) 0.8 cm Wound Surface Area (cm^2) 40 cm^2 Change in Wound Size % (l*w) -66.67 Wound Volume (cm^3) 32 cm^3 Wound Healing % -167 Undermining 1 to 5 o'clock 3cm Undermining @ 11 o'clock 3 cm Wound Assessment Red;Brown;Slough;Painful (dusky) Drainage Amount Moderate Drainage Description Serosanguinous;Yellow Kaley-wound Assessment Edema;Hyperpigmented;Blanchable erythema Non-staged Wound Description Full thickness Dr. Lemus in at time of dressing change and observed wound. Response to treatment: With complaints of pain. Plan Plan of Care: Continue BID Moist to Moist dressing changes with 1/4st. Dakins. Irrigate wound with Dakins solution. Secure with roll gauze, GARRET wrap from toes to knee; encourage elevation. Follow up as per consultants and would prefer referral to [facility] rather than [facility] to [facility]. Specialty Bed Required : No [] Low Air Loss [] Pressure Redistribution [] Fluid Immersion [] Bariatric [] Total Pressure Relief [] Other: Current Diet: DIET GENERAL; Dietary Nutrition Supplements: Wound Healing Oral Supplement Discharge Plan: Placement for patient upon discharge: home with support Patient appropriate for Outpatient Wound Care Center: Yes Would prefer a referral to [facility] Patient/Caregiver Teaching: Level of patient/caregiver understanding able to: [] Indicates understanding [] Needs reinforcement [] Unsuccessful [x] Verbal Understanding [] Demonstrated understanding [] No evidence of learning [] Refused teaching [] N/A SASKIA GOLDBERG, RN, CWON * Polina Seay, [facility] - 12/17/2018 2:11 PM EDT Pharmacy Vancomycin Consult Vancomycin Day: 3 Current Dosing: Vancomycin 1250 mg IV Q 24 hours Temp max: 97.9 Recent Labs 12/16/18 0443 12/17/18 0556 BUN 17 23 Recent Labs 12/16/18 0443 12/17/18 0556 CREATININE 1.05* 1.04* Recent Labs 12/16/18 0443 12/17/18 0556 WBC 6.7 5.1 No intake or output data in the 24 hours ending 12/17/18 1407 Culture Date Source Results 12/15/18 Blood x2 12/15/18 Wound Few gram (+) cocci in pairs; Few gram (-) rods; Moderate gram (+) rods Ht Readings from Last 1 Encounters: 12/14/18 5' 6 (1.676 m) Wt Readings from Last 1 Encounters: 12/14/18 196 lb 11.2 oz (89.2 kg) Body mass index is 31.75 kg/m . Estimated Creatinine Clearance: 49 mL/min (A) (based on SCr of 1.04 mg/dL (H)). Trough: 12.9 mcg/mL- Drawn 12/17/18 at 1052 Assessment/Plan: Will continue current dose of Vancomycin 1250 IV Q 24 hours. Patient's renal function continues to improve. Will continue to monitor and adjust dose as needed. ID HAS BEEN CONSULTED. Polina Seay, PharmD 12/17/2018 2:11 PM * Hebert Gaspar OT - 12/17/2018 12:26 PM EDT Occupational Therapy Occupational Therapy Initial Assessment Date: 12/17/2018 Patient Name: Carly Marcelino : 1940 Copied from H&P: History of Present Illness: Carly Marcelino is a 78 y.o. Non-/non female who presents with No chief complaint on file. and is admitted to the hospital for the management of Left leg cellulitis. Ms. Marcelino is a pleasant 78 yr old female who is transferred from outside hospital (documentation is limited)/ Patient had a fall approx. 1 month ago and developed a left knee hematoma after the fall. Reportedly the hematoma went without resolution and developed fluctuance. She was being treated by the wound care clinic at [facility]. Approx. 1 week ago, she had the hematoma removed in the Wound Care office and was started on Amoxicillin. For the last week, her left leg has had increased, swelling, redness, and pain. Patient denies fevers, but does endorse generalized body aches and chills. Given the worsening condition; she presented to the ED today. There is a large/open LE wound lateral to the knee. The wound base is brown and moist with small amount of serosang drainage present to the dressing that freelance writer removed. Of note, the patient his history of bilateral knee replacements-- concerns with infection increased given hardware. Decision was made to trasnfer given integrity of wound and cellulitis. Patient was started on Vanco and Zosyn at [facility] and given 1L IVF. No leukocytosis or elevated procalcitonin noted on admit labs. ESR and CRP elevated, blood cultures collected at [facility]. Dopplers completed and DVT ruled out. Date of Service: 12/17/2018 Discharge Recommendations: Further therapy recommended at discharge. OT Equipment Recommendations Equipment Needed: No Assessment Performance deficits / Impairments: Decreased functional mobility ;Decreased ADL status;Decreased endurance;Decreased safe awareness Assessment: Pt would benefit from continued acute care OT and post acute care OT to address minimaldeficits in ADL/ functional activities, endurance and functional mobility following admission. Pt required CGA/ SBA for safety on this date. Prognosis: Good Decision Making: Medium Complexity OT Education: OT Role;Plan of Care REQUIRES OT FOLLOW UP: Yes Activity Tolerance Activity Tolerance: Patient Tolerated treatment well Safety Devices Safety Devices in place: Yes Type of devices: Left in bed;Nurse notified Restraints Initially in place: No Patient Diagnosis(es): There were no encounter diagnoses. has a past medical history of Essential hypertension. has no past surgical history on file. Restrictions Restrictions/Precautions Restrictions/Precautions: Fall Risk, Up as Tolerated Required Braces or Orthoses?: No Subjective General Patient assessed for rehabilitation services?: Yes Family / Caregiver Present: No Patient Currently in Pain: No Social/Functional History Social/Functional History Lives With: Alone Type of Home: House Home Layout: Two level, Able to Live on Main level with bedroom/bathroom Home Access: Ramped entrance Bathroom Shower/Tub: Tub/Shower unit Bathroom Toilet: Standard Bathroom Equipment: Shower chair, Hand-held shower, Grab bars in shower Home Equipment: Rolling walker, Quad cane, Grab bars ADL Assistance: Independent Homemaking Assistance: Independent Homemaking Responsibilities: Yes Meal Prep Responsibility: Primary Laundry Responsibility: Primary Cleaning Responsibility: Primary Shopping Responsibility: Primary Ambulation Assistance: Independent Transfer Assistance: Independent 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 No LOB or SOB ADL Feeding: Independent Grooming: Contact guard assistance;Setup(to wash hands standing at sink ) UE Bathing: Setup;Contact guard assistance LE Bathing: Contact guard assistance;Setup UE Dressing: Contact guard assistance;Setup(to manage gown ) LE Dressing: Contact guard assistance;Setup(to don/ doff shoes seated EOB, pants prior to toileting) Toileting: Stand by assistance(seated on toilet in bathroom) Additional Comments: Pt supine in bed on arrival. Pt completed bed mobility and sat at EOB to don shoes. Pt compeled sit > stand transfer and functional mobility into bathroom with use of IV pole.Pt completed toileting and transferred to sink to complete hand washing. Pt completed functional mobility into hernandez with use of RW, no LOB or SOB. Pt returned to chair, call light in reach and RN notified on therapist exit. Tone RUE RUE Tone: Normotonic Tone LUE LUE Tone: Normotonic Coordination Movements Are Fluid And Coordinated: Yes Bed mobility Rolling to Left: Independent Rolling to Right: Independent Supine to Sit: Independent Sit to Supine: Independent Scooting: Independent Comment: HOB raised Transfers Stand Step Transfers: Stand by assistance Sit to stand: Contact guard assistance Stand to sit: Contact guard assistance Cognition Overall Cognitive Status: WFL Perception Overall Perceptual Status: WFL Sensation Overall Sensation Status: WFL LUE AROM (degrees) LUE AROM : WFL LUE Strength Gross LUE Strength: WFL RUE Strength Gross RUE Strength: WFL Plan Plan Times per week: 3-5x/wk Current Treatment Recommendations: Functional Mobility Training, Endurance Training, Safety Education & Training, Patient/Caregiver Education & Training, Equipment Evaluation, Education, & procurement, Self-Care / ADL AM-PAC Score AM-[facility] Inpatient Daily Activity Raw Score: 19 (12/17/18 122) AM-[facility] Inpatient ADL T-Scale Score : 40.22 (12/17/18 1226) ADL Inpatient CMS 0-100% Score: 42.8 (12/17/18 1226) ADL Inpatient [facility] G-Code Modifier : CK (12/17/181225) Goals Short term goals Time Frame for Short term goals: by discharge, pt will Short term goal 1: demo I in UE ADL activities Short term goal 2: demo MS/I in LE ADL activities with AD as needed Short term goal 3: demo I in functional transfers/ mobility with use of LRD to assist with ADL/ functional activities Short term goal 4: demo increased activity tolerance of 30+ min to assist with ADL/ functional activities Short term goal 5: demo understanding and I use of EC/WS, fall prevention during functional activities Patient Goals Patient goals : to go home Therapy Time Individual Concurrent Group Co-treatment Time In 1005 Time Out 1040 Minutes 35 See above for LOF. RN reports patient is medically stable for therapy treatment this date. Chart reviewed prior to treatment and patient is agreeable for therapy. All lines intact and patient positioned comfortably at end of treatment. All patient needs addressed prior to ending therapy session. Hebert Gaspar OTR/L * Laurie Lemus, DO - 12/17/2018 11:58 AM EDT [facility] IN-PATIENT SERVICE [facility] Progress Note 12/17/2018 11:58 AM Name: Carly Marcelino Acct: [id number] Room: IP Day: 3 Admit Date: 12/14/2018 10:55 PM PCP: HARDEEP MCKENZIE Code Status: Full Code Subjective: C/C: Wound infection Interval History Status: Stable Pain at 4/10 Doing ok with diet Data Base Updates: Calcium 8.8 mg/dL Sodium 137 mmol/L Potassium 4.0 Calcium, Ion 1.19 Specimen Description .WOUND LEFT Special Requests NOT REPORTED Direct Exam MODERATE NEUTROPHILSAbnormal MODERATE GRAM POSITIVE RODSAbnormal FEW GRAM POSITIVE COCCI IN CLUSTERSAbnormal FEW GRAM NEGATIVE RODSAbnormal Culture CULTURE IN PROGRESS Specimen Source: Blood Specimen Description .BLOOD Special Requests LEFT ARM 3ML Culture NO GROWTH 2 DAYS Glucose 86 mg/dL BUN 23 mg/dL CREATININE 1.04High Brief History: As documented in the medical record: This is a 78-year-old female that fell approximately 1 month ago. She developed a hematoma of the left knee and been following with the wound care center. Approximately 1 week ago she had the hematoma evacuated and the wound care office and was started on amoxicillin. Since that time sheis had increased swelling, redness and pain and presented to the outside facility and was transferred here for further evaluation. Results for CARLY MARCELINO ( ) as of 12/16/2018 19:16 Ref. Range 09/07/2011 10:23 12/15/2018 10:25 12/16/2018 04:43 Creatinine Latest Ref Range: 0.50 - 0.90 mg/dL 0.95 1.27 (H) 1.05 (H) The patient was admitted Antibiotics initiated Infectious disease was consulted Blood pressure monitored and controlled Orthopedic reevaluation requested Her renal function was carefully observed Medications: Allergies: Allergies Allergen Reactions Dilantin [Phenytoin Sodium Extended] Anaphylaxis Depakote [Divalproex Sodium] Other (See Comments) Fine motor tremors Labetalol Other (See Comments) Intolerance Norvasc [Amlodipine] intolterance Procardia [Nifedipine] intolerance Tegretol [Carbamazepine] Itching Current Meds: Scheduled Meds: sodium hypochlorite Irrigation BID docusate sodium 100 mg Oral BID vancomycin (VANCOCIN) intermittent dosing (placeholder) Other RX Placeholder vancomycin 1,250 mg Intravenous Q24H baclofen 10 mg Oral Daily gabapentin 300 mg Oral TID losartan 100 mg Oral Daily magnesium oxide 400 mg Oral Daily triamterene-hydrochlorothiazide 1 tablet Oral Daily zafirlukast 20 mg Oral BID cetirizine 10 mg Oral Daily sodium chloride flush 10 mL Intravenous 2 times per day enoxaparin 40 mg Subcutaneous Daily piperacillin-tazobactam 3.375 g Intravenous Q8H Continuous Infusions: sodium chloride 100 mL/hr at 12/15/18 0046 PRN Meds: sodium chloride, morphine, sodium chloride flush, acetaminophen Data: Past Medical History: has a past medical history of Essential hypertension. Social History: reports that she quit smoking about 42 years ago. She has never used smokeless tobacco. Family History: No family history on file. Vitals: BP (!) 104/49 Pulse 71 Temp 97.9 F (36.6 C) (Oral) Resp 23 Ht 5' 6 (1.676 m) Wt 196 lb 11.2 oz (89.2 kg) SpO2 95% BMI 31.75 kg/m Temp (24hrs), Av.2 F (36.8 C), Min:97.9 F (36.6 C), Max:98.4 F (36.9 C) No results for input(s): POCGLU in the last 72 hours. I/O (24Hr): Intake/Output Summary (Last 24 hours) at 12/17/2018 1158 Last data filed at 12/16/2018 1319 Gross per 24 hour Intake Output 200 ml Net -200 ml Review of Systems: Review of Systems Constitutional: Negative for chills, diaphoresis and fever. Respiratory: Positive for cough (Has had scant white sputum). Negative for shortness of breath and wheezing. Cardiovascular: Negative for chest pain and palpitations. Gastrointestinal: Negative for abdominal pain, nausea and vomiting. Genitourinary: Negative for flank pain and hematuria. Skin: Positive for wound (Wound pain is controlled). Physical Examination: Physical Exam Constitutional: She is oriented to person, place, and time. No distress. HENT: Head: Normocephalic. Nose: Nose normal. Eyes: Conjunctivae are normal. No scleral icterus. Neck: Neck supple. No tracheal deviation present. Cardiovascular: Normal rate and regular rhythm. Pulmonary/Chest: Effort normal and breath sounds normal. No respiratory distress. She has no wheezes. She has no rales. She exhibits no tenderness. Abdominal: Soft. Bowel sounds are normal. She exhibits no distension. There is no tenderness. Musculoskeletal: She exhibits edema. She exhibits no tenderness. Neurological: She is alert and oriented to person, place, and time. Skin: Skin is warm and dry. She is not diaphoretic. Wound is dressed dry and clean Stasis dermatitis at the ankles Vitals reviewed. Prior photo: Labs: Hematology: Recent Labs 12/15/18 1025 12/16/1844212/17/18 0556 WBC 6.4 6.7 5.1 HGB 7.7* 7.6* 8.1* HCT 25.5* 25.0* 26.3* PLT 232 224 216 INR 1.0 -- -- Chemistry: Recent Labs 12/15/18 1025 12/16/183 12/17/18 0556 NA 138 138 137 K 4.3 4.4 4.0 CL 103 102 100 CO2 23 25 27 GLUCOSE 78 91 86 BUN 20 17 23 CREATININE 1.27* 1.05* 1.04* MG 2.2 -- -- CALCIUM 8.6 8.5* 8.8 CAION 1.21 -- 1.19 PHOS 3.5 -- -- Recent Labs 12/15/18 1025 PROT 6.6 LABALBU 3.3* AST 15 ALT 8 ALKPHOS 67 BILITOT 0.25* Lab Results Component Value Date/Time SPECIAL NOT REPORTED 12/15/2018 12:37 AM No results found for: POCPH, PHART, PH, POCPCO2, [id number], PCO2, POCPO2, PO2ART, PO2, POCHCO3, MAQ7MDK, HCO3, NBEA, PBEA, BEART, BE, THGBART, THB, RYC7YVL, ADKE2TEI, O4OUIHUU, O2SAT, FIO2 Radiology: Xr Knee Left (3 Views) Result Date: 12/15/2018 Marked soft tissue swelling with large wound along the medial aspect of the left knee. There are several adjacent lucencies within the soft tissue concerning for soft tissue gas. No radiographic findings to suggest acute osteomyelitis. Assessment: Primary Problem Left leg cellulitis Active Hospital Problems Diagnosis Date Noted Anemia, normocytic normochromic [D64.9] 12/16/2018 Hypocalcemia [E83.51] 12/16/2018 Hypoalbuminemia [E88.09] 12/16/2018 LALY (acute kidney injury) (HCC) [N17.9] 12/16/2018 Fall [W19.XXXA] 12/15/2018 Essential hypertension [I10] 12/15/2018 Normocytic anemia [D64.9] 12/15/2018 At risk for malnutrition [Z91.89] 12/15/2018 Open wound of left knee [S81.002A] 12/15/2018 Traumatic hematoma of knee, left, sequela [S80.02XS] 12/15/2018 Left leg cellulitis [L03.116] 12/14/2018 Plan: Antibiotics per ID Wound care Dakins BID Orthopedic evaluation and f/u as scheduled May need Plastics for grafting Transfuse as needed Monitor and control blood pressure Correct electrolytes Dietary supplementation DVT prophylaxis PHARMACY TO DOSE VANCOMYCIN IP CONSULT TO ORTHOPEDIC SURGERY IP CONSULT TO INFECTIOUS DISEASES Laurie Lemus DO 12/17/2018 11:58 AM * Tank Porras, DIGITAL PRINTER OPERATOR - 12/17/2018 11:08 AM EDT Physical Therapy Facility/Department: [facility] Daily Treatment Note NAME: Carly Marcelino : 1940 Date of Service: 12/17/2018 Discharge Recommendations: Further therapy recommended at discharge. PT Equipment Recommendations Equipment Needed: No Assessment Body structures, Functions, Activity limitations: Decreased functional mobility ;Decreased endurance Assessment: Pt ambulating 300ft w/RW SBA, steady but requires standing rest breaks, Pt reports thatshe has a hard time remembering to lift her R foot, she has to really think about it, and that may be why she fell before her current admission; Asc/Dsc (4) 6 steps L rail Asc; Seated BLE x20 with 2# Prognosis: Good PT Education: PT Role;Goals;Plan of Care;General Safety;Adaptive Device Training;Gait Training REQUIRES PT FOLLOW UP: Yes Activity Tolerance Activity Tolerance: Patient limited by endurance;Patient Tolerated treatment well Activity Tolerance: Pt. notes decreased endurance, but is still able to participate in all PT activities Patient Diagnosis(es): There were no encounter diagnoses. has a past medical history of Essential hypertension. has no past surgical history on file. Restrictions Restrictions/Precautions Restrictions/Precautions: Fall Risk, Up as Tolerated Required Braces or Orthoses?: No Subjective General Chart Reviewed: Yes Response To Previous Treatment: Patient with no complaints from previous session. Family / Caregiver Present: No Subjective Subjective: RN and pt agreed to PT; pt resting in bed upon arrival and denies pain; pt eager to perform PT General Comment Comments: Pt with bandage on L knee Pain Screening Patient Currently in Pain: No Vital Signs Patient Currently in Pain: No Orientation Orientation Overall Orientation Status: Within Normal Limits Cognition Objective Bed mobility Supine to Sit: Independent Sit to Supine: Independent Scooting: Independent Transfers Sit to Stand: Stand by assistance Stand to sit: Stand by assistance Ambulation Ambulation?: Yes More Ambulation?: Yes(see ambulation 1) Ambulation 1 Surface: level tile Device: Rolling Walker Assistance: Stand by assistance Quality of Gait: Pt reports that she has a hard time remembering to lift her R foot, she has to really think about it, and that may be why she fell before her current admission Gait Deviations: Slow Maryann;Decreased step height;Shuffles Distance: 300 ft x2 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 Reps: 20 with 2# ankle weights Goals Short term goals Time Frame for Short term goals: 10 visits Short term goal 1: Independent transfers Short term goal 2: Independent ambulation with least restricitve device 300 ft Short term goal 3: Navigate 4 steps with 1 rail Short term goal 4: Pt to tolerate 30 minutes of activity to improve endurance. Patient Goals Patient goals : Have leg healed. Plan Plan Times per week: 5x/week Current Treatment Recommendations: Strengthening, Gait Training, Stair training, Balance Training, Endurance Training, Functional Mobility Training, Transfer Training, Safety Education & Training, Home Exercise Program Safety Devices Type of devices: Left in bed, Nurse notified, Call light within reach, Gait belt Therapy Time Individual Concurrent Group Co-treatment Time In 1108 Time Out 1139 Minutes 31 Tank Porras PTA * Laurie Lemus, DO - 12/16/2018 7:11 PM EDT [facility] IN-PATIENT SERVICE [facility] Progress Note 12/16/2018 7:22 PM Name: Carly Marcelino Acct: [id number] Room: IP Day: 2 Admit Date: 12/14/2018 10:55 PM PCP: HARDEEP MCKENZIE Code Status: Full Code Subjective: C/C: Wound infection Interval History Status: Stable Pain controlled Doing okay with diet Requesting that she take her Accolate from home Data Base Updates: WBC 6.7 k/uL RBC 2.67Low m/uL Hemoglobin 7.6Low Specimen Description .WOUND LEFT Special Requests NOT REPORTED Direct Exam MODERATE NEUTROPHILSAbnormal MODERATE GRAM POSITIVE RODSAbnormal FEW GRAM POSITIVE COCCI IN CLUSTERSAbnormal FEW GRAM NEGATIVE RODS CREATININE 1.05High Brief History: As documented in the medical record: This is a 78-year-old female that fell approximately 1 month ago. She developed a hematoma of the left knee and been following with the wound care center. Approximately 1 week ago she had the hematoma evacuated and the wound care office and was started on amoxicillin. Since that time sheis had increased swelling, redness and pain and presented to the outside facility and was transferred here for further evaluation. Results for CARLY MARCELINO ( ) as of 12/16/2018 19:16 Ref. Range 09/07/2011 10:23 12/15/2018 10:25 12/16/2018 04:43 Creatinine Latest Ref Range: 0.50 - 0.90 mg/dL 0.95 1.27 (H) 1.05 (H) The patient was admitted Antibiotics initiated Blood pressure monitored and controlled Orthopedic reevaluation requested Her renal function was carefully observed Medications: Allergies: Allergies Allergen Reactions Dilantin [Phenytoin Sodium Extended] Anaphylaxis Depakote [Divalproex Sodium] Other (See Comments) Fine motor tremors Labetalol Other (See Comments) Intolerance Norvasc [Amlodipine] intolterance Procardia [Nifedipine] intolerance Tegretol [Carbamazepine] Itching Current Meds: Scheduled Meds: sodium hypochlorite Irrigation BID docusate sodium 100 mg Oral BID vancomycin (VANCOCIN) intermittent dosing (placeholder) Other RX Placeholder vancomycin 1,250 mg Intravenous Q24H baclofen 10 mg Oral Daily gabapentin 300 mg Oral TID losartan 100 mg Oral Daily magnesium oxide 400 mg Oral Daily triamterene-hydrochlorothiazide 1 tablet Oral Daily zafirlukast 20 mg Oral BID cetirizine 10 mg Oral Daily sodium chloride flush 10 mL Intravenous 2 times per day enoxaparin 40 mg Subcutaneous Daily piperacillin-tazobactam 3.375 g Intravenous Q8H Continuous Infusions: sodium chloride 100 mL/hr at 12/15/18 0046 PRN Meds: sodium chloride, morphine, sodium chloride flush, acetaminophen Data: Past Medical History: has a past medical history of Essential hypertension. Social History: reports that she quit smoking about 42 years ago. She has never used smokeless tobacco. Family History: No family history on file. Vitals: BP (!) 123/59 Pulse 77 Temp 98.4 F (36.9 C) (Oral) Resp 16 Ht 5' 6 (1.676 m) Wt 196 lb 11.2 oz (89.2 kg) SpO2 96% BMI 31.75 kg/m Temp (24hrs), Av.3 F (36.8 C), Min:98.2 F (36.8 C), Max:98.4 F (36.9 C) No results for input(s): POCGLU in the last 72 hours. I/O (24Hr): Intake/Output Summary (Last 24 hours) at 12/16/2018 192 Last data filed at 12/16/2018 1319 Gross per 24 hour Intake 1207 ml Output 1400 ml Net -193 ml Review of Systems: Review of Systems Constitutional: Negative for chills, diaphoresis and fever. Respiratory: Positive for cough (Has had scant white sputum). Negative for shortness of breath and wheezing. Cardiovascular: Negative for chest pain and palpitations. Gastrointestinal: Negative for abdominal pain, nausea and vomiting. Genitourinary: Negative for flank pain and hematuria. Skin: Positive for wound (Wound pain is controlled). Physical Examination: Physical Exam Constitutional: She is oriented to person, place, and time. No distress. HENT: Head: Normocephalic. Nose: Nose normal. Eyes: Conjunctivae are normal. No scleral icterus. Neck: Neck supple. No tracheal deviation present. Cardiovascular: Normal rate and regular rhythm. Pulmonary/Chest: Effort normal and breath sounds normal. No respiratory distress. She has no wheezes. She has no rales. She exhibits no tenderness. Abdominal: Soft. Bowel sounds are normal. She exhibits no distension. There is no tenderness. Musculoskeletal: She exhibits no edema or tenderness. Neurological: She is alert and oriented to person, place, and time. Skin: Skin is warm and dry. She is not diaphoretic. Wound is dressed dry and clean Vitals reviewed. Prior photo: Labs: Hematology: Recent Labs 12/15/18 1025 12/16/18 0443 WBC 6.4 6.7 HGB 7.7* 7.6* HCT 25.5* 25.0* PLT 232 224 INR 1.0 -- Chemistry: Recent Labs 12/15/18 1025 12/16/18 0443 NA 138 138 K 4.3 4.4 CL 103 102 CO2 23 25 GLUCOSE 78 91 BUN 20 17 CREATININE 1.27* 1.05* MG 2.2 -- CALCIUM 8.6 8.5* CAION 1.21 -- PHOS 3.5 -- Recent Labs 12/15/18 1025 PROT 6.6 LABALBU 3.3* AST 15 ALT 8 ALKPHOS 67 BILITOT 0.25* Lab Results Component Value Date/Time SPECIAL NOT REPORTED 12/15/2018 12:37 AM No results found for: POCPH, PHART, PH, POCPCO2, ETC9WHA, PCO2, POCPO2, PO2ART, PO2, POCHCO3, JJD7ARC, HCO3, NBEA, PBEA, BEART, BE, THGBART, THB, VUV7LOQ, KTXS7QYG, [id number], O2SAT, FIO2 Radiology: Xr Knee Left (3 Views) Result Date: 12/15/2018 Marked soft tissue swelling with large wound along the medial aspect of the left knee. There are several adjacent lucencies within the soft tissue concerning for soft tissue gas. No radiographic findings to suggest acute osteomyelitis. Assessment: Primary Problem Left leg cellulitis Active Hospital Problems Diagnosis Date Noted Anemia, normocytic normochromic [D64.9] 12/16/2018 Hypocalcemia [E83.51] 12/16/2018 Hypoalbuminemia [E88.09] 12/16/2018 LALY (acute kidney injury) (HCC) [N17.9] 12/16/2018 Fall [W19.XXXA] 12/15/2018 Essential hypertension [I10] 12/15/2018 Normocytic anemia [D64.9] 12/15/2018 At risk for malnutrition [Z91.89] 12/15/2018 Open wound of left knee [S81.002A] 12/15/2018 Traumatic hematoma of knee, left, sequela [S80.02XS] 12/15/2018 Left leg cellulitis [L03.116] 12/14/2018 Plan: Antibiotics per C&S Results Wound care Orthopedic evaluation Transfuse as needed Monitor and control blood pressure Correct electrolytes Dietary supplementation PHARMACY TO DOSE VANCOMYCIN IP CONSULT TO ORTHOPEDIC SURGERY Laurie Lemus DO 12/16/2018 7:22 PM * Saskia Marquez RN - 12/16/2018 11:30 AM EDT [facility] Consult Note NAME: Carly Marcelino AGE: 78 y.o. GENDER: female : 1940 TODAY'S DATE: 12/16/2018 Subjective Reason for WOC Nurse Evaluation and Assessment: S/P evacuation / unroofing of hematoma of the left medial knee, performed at [facility]. Had been receiving NPWT to the wound until wound appeared worse to home care nurse who applied moist saline guaze and referred patient for evaluation. Ortho Service examined with no surgical intervention required. Suggests Plastic referral in the future for possible grafting. Carly Marcelino is a 78 y.o. female referred by: [x] Physician [] Nursing [] Other: Wound Identification: Wound Type: traumatic Contributing Factors: edema, venous stasis and obesity PAST MEDICAL HISTORY Diagnosis Date Essential hypertension PAST SURGICAL HISTORY History reviewed. No pertinent surgical history. FAMILY HISTORY No family history on file. SOCIAL HISTORY Social History Tobacco Use Smoking status: Former Smoker Last attempt to quit: 1976 Years since quittin.7 Smokeless tobacco: Never Used Substance Use Topics Alcohol use: Not on file Drug use: Not on file ALLERGIES Allergies Allergen Reactions Dilantin [Phenytoin Sodium Extended] Anaphylaxis Depakote [Divalproex Sodium] Other (See Comments) Fine motor tremors Labetalol Other (See Comments) Intolerance Norvasc [Amlodipine] intolterance Procardia [Nifedipine] intolerance Tegretol [Carbamazepine] Itching MEDICATIONS No current facility-administered medications on file prior to encounter. Current Outpatient Medications on File Prior to Encounter Medication Sig Dispense Refill baclofen (LIORESAL) 10 MG tablet Take 10 mg by mouth daily I/2 tab in the evening zafirlukast (ACCOLATE) 20 MG tablet Take 20 mg by mouth 2 times daily gabapentin (NEURONTIN) 300 MG capsule Take 300 mg by mouth 3 times daily. magnesium oxide (MAG-OX) 400 MG tablet Take 400 mg by mouth daily In the evening losartan (COZAAR) 100 MG tablet Take 100 mg by mouth daily triamterene-hydrochlorothiazide (MAXZIDE-25) 37.5-25 MG per tablet Take 1 tablet by mouth daily cetirizine (ZYRTEC) 10 MG tablet Take 10 mg by mouth daily Objective BP (!) 123/59 Pulse 77 Temp 98.4 F (36.9 C) (Oral) Resp 16 Ht 5' 6 (1.676 m) Wt 196 lb 11.2 oz (89.2 kg) SpO2 96% BMI 31.75 kg/m LABS: WBC: Lab Results Component Value Date WBC 6.7 12/16/2018 H/H: Lab Results Component Value Date HGB 7.6 12/16/2018 HCT 25.0 12/16/2018 PTT: No results found for: APTT, PTT[APTT} PT/INR: Lab Results Component Value Date PROTIME 10.9 12/15/2018 INR 1.0 12/15/2018 HgBA1c: No results found for: LABA1C Assessment Vignesh Risk Score: Vignesh Scale Score: 20 Patient Active Problem List Diagnosis Code Left leg cellulitis L03.116 Fall W19.XXXA Essential hypertension I10 Normocytic anemia D64.9 At risk for malnutrition Z91.89 Open wound of left knee S81.002A Traumatic hematoma of knee, left, sequela S80.02XS Measurements: 12/16/18 1108 Wound 12/14/18 Knee Anterior;Left wound edges non-approximate looks as eschar with brown drainage, tunling & swollen Date First Assessed/Time First Assessed: 12/14/18 2315 Present on Hospital Admission: Yes Primary Wound Type: Traumatic Location: Knee Wound Location Orientation: Anterior;Left Wound Description (Comments): wound edges non- approximate looks as e... Wound Image Wound Traumatic (unroofed hematoma) Dressing Status Changed Dressing Changed Changed/New Dressing/Treatment Moist to moist;ABD;Garret Wrap (saline) Wound Cleansed Rinsed/Irrigated with saline Wound Length (cm) 4 cm (estimated) Wound Width (cm) 6 cm Wound Depth (cm) 0.5 cm Wound Surface Area (cm^2) 24 cm^2 Wound Volume (cm^3) 12 cm^3 Wound Assessment Red;Tolliver;Slough Drainage Amount Moderate Drainage Description Serosanguinous Kaley-wound Assessment Blanchable erythema;Edema Response to treatment: Well tolerated by patient. Some tenderness to palpation. Plan Plan of Care: Recommend BID dressing changes with / st. Dakins to decrease slough and bio- burden before resuming NPWT. Use of Dakins cleared with Ortho Service. Suggest she return to Wound Care Center for continued treatment with NPWT when appropriate. She hadsome reservation of returning to Wound Care and discussed feasibility of coming to [place] but is too far from home. Agreed she could reutrn to [facility] wound care Some discussion of Plastic Surgery consult from Ortho Service in the future. Explained wound would require continued granulation and autolytic debridement of slough before clinically ready for graft. Specialty Bed Required : No [] Low Air Loss [] Pressure Redistribution [] Fluid Immersion [] Bariatric [] Total Pressure Relief [] Other: Current Diet: DIET GENERAL; Dietary Nutrition Supplements: Wound Healing Oral Supplement Discharge Plan: Placement for patient upon discharge: home with support Patient appropriate for Outpatient Wound Care Center: Yes Current with [facility] Patient/Caregiver Teaching: Level of patient/caregiver understanding able to: [] Indicates understanding [] Needs reinforcement [] Unsuccessful [x] Verbal Understanding [] Demonstrated understanding [] No evidence of learning [] Refused teaching [] N/A SASKIA GOLDBERG, RN, CWON * Joanna White RCP - 12/16/2018 10:49 AM EDT Smoking Cessation - topics covered [] Health Risks [] Benefits of Quitting [] Smoking Cessation [] Patient has no history of tobacco use [x] Patient is former smoker. Patient quit in 1976. [x] No need for tobacco cessation education. [] Booklet given [] Patient verbalizes understanding. [] Patient denies need for tobacco cessation education. [] Unable to meet with patient today. Will follow up as able. JOANNA WHITE 10:49 AM * Maryuri Gracia PTA - 12/16/2018 10:03 AM EDT Physical Therapy Facility/Department: [facility] CAR 2 Daily Treatment Note NAME: Carly Marcelino : 1940 Date of Service: 12/16/2018 Discharge Recommendations: Patient would benefit from continued therapy after discharge PT Equipment Recommendations Equipment Needed: No Assessment Body structures, Functions, Activity limitations: Decreased functional mobility ;Decreased endurance Assessment: Pt ambulating 300ft w/RW SBA, steady but frequent standing rest breaks needed Prognosis: Good Decision Making: Medium Complexity PT Education: Goals;General Safety REQUIRES PT FOLLOW UP: Yes Activity Tolerance Activity Tolerance: Patient limited by endurance;Patient Tolerated treatment well Patient Diagnosis(es): There were no encounter diagnoses. has a past medical history of Essential hypertension. has no past surgical history on file. Restrictions Restrictions/Precautions Restrictions/Precautions: Fall Risk, Up as Tolerated Required Braces or Orthoses?: No Subjective General Response To Previous Treatment: Patient with no complaints from previous session. Family / Caregiver Present: No Subjective Subjective: RN and pt agreed to PT, pt resting in bed upon arrival and denies pain Pain Screening Patient Currently in Pain: No Vital Signs Patient Currently in Pain: No Orientation Orientation Overall Orientation Status: Within Normal Limits Objective Bed mobility Rolling to Left: Independent Rolling to Right: Independent Supine to Sit: Independent Sit to Supine: Independent Scooting: Independent Transfers Sit to Stand: Stand by assistance Stand to sit: Stand by assistance Ambulation Ambulation?: Yes Ambulation 1 Surface: level tile Device: Rolling Walker Assistance: Stand by assistance Gait Deviations: Slow Maryann;Decreased step height;Shuffles Distance: 300 ft x2 with multiple standing rest breaks 1st ambulation and improved during 2nd ambulation Comments: pt c/o soreness in B shoulders with ambulaltion Stairs/Curb Stairs?: No Exercises Seated LE exercise program: Long Arc Quads, hip abduction/adduction, heel/toe raises, and marches. Reps: x 20 Goals Short term goals Time Frame for Short term goals: 10 visits Short term goal 1: Independent transfers Short term goal 2: Independent ambulation with least restricitve device 300 ft Short term goal 3: Navigate 4 steps with 1 rail Short term goal 4: Pt to tolerate 30 minutes of activity to improve endurance. Patient Goals Patient goals : Have leg healed. Plan Plan Times per week: 5x/week Current Treatment Recommendations: Strengthening, Gait Training, Stair training, Balance Training, Endurance Training, Functional Mobility Training, Transfer Training, Safety Education & Training, Home Exercise Program Safety Devices Type of devices: Left in bed, Nurse notified, Call light within reach, Gait belt Therapy Time Individual Concurrent Group Co-treatment Time In 0846 Time Out 0911 Minutes 25 Maryuri Gracia PTA * Rocio King RD, LD - 12/15/2018 1:00 PM EDT Nutrition Assessment Type and Reason for Visit: Initial, Positive Nutrition Screen(Wound) Nutrition Recommendations: - Continue current General diet. Encourage/monitor PO intakes as tolerated. - Will provide Ari x 2 per day to aid in wound healing. Nutrition Assessment: Pt nutritionally compromised as evidence by a traumatic wound to her left knee. Pt reports not feeling well recently with a decreased appetite. Will provide oral supplements to boost intakes. Malnutrition Assessment: Malnutrition Status: At risk for malnutrition Context: Acute illness or injury Findings of the 6 clinical characteristics of malnutrition (Minimum of 2 out of 6 clinical characteristics is required to make the diagnosis of moderate or severe Protein Calorie Malnutrition based on AND/ASPEN Guidelines): 1. Energy Intake-Less than or equal to 75% of estimated energy requirement, Greater than or equal to 7 days 2. Weight Loss-No significant weight loss 3. Fat Loss-No significant subcutaneous fat loss 4. Muscle Loss-No significant muscle mass loss 5. Fluid Accumulation-(Mild to moderate fluid accumulation), Extremities Nutrition Risk Level: Moderate Nutrient Needs: Estimated Daily Total Kcal: 5040-4362 kcal/day Estimated Daily Protein (g): 70-90 gm pro/day Nutrition Diagnosis: Problem: Increased nutrient needs Etiology: related to (healing) ? Signs and symptoms: as evidenced by Presence of wounds Objective Information: Wound Type: Open Wounds(Traumatic wound to left knee) Current Nutrition Therapies: Oral Diet Orders: General Oral Diet intake: 26-50%, 51-75% Anthropometric Measures: Ht: 5' 6 (167.6 cm) Current Body Wt: 196 lb 11.2 oz (89.2 kg) Admission Body Wt: 196 lb 11.2 oz (89.2 kg) [place] Body Wt: 130 lb (59 kg), % [place] Body 151% BMI Classification: BMI 30.0 - 34.9 Obese Class I Nutrition Interventions: Continue current diet, Start ONS Continued Inpatient Monitoring, Education Not Indicated Nutrition Evaluation: Evaluation: Goals set Goals: Oral intakes to meet at least 75% of estimated nutrition needs. Monitoring: Meal Intake, Supplement Intake, Diet Tolerance, Skin Integrity, Wound Healing, I&O,Weight, Pertinent Labs, Monitor Bowel Function Contact Number: [phone] * Damien Del Rosario, PT - 12/15/2018 11:03 AM EDT Physical Therapy Facility/Department: [facility] CAR 2 Initial Assessment NAME: Carly Marcelino : 1940 Date of Service: 12/15/2018 Ms. Marcelino is a pleasant 78 yr old female who is transferred from outside hospital (documentation is limited)/ Patient had a fall approx. 1 month ago and developed a left knee hematoma after the fall. Reportedly the hematoma went without resolution and developed fluctuance. She was being treated by the wound care clinic at [facility]. Approx. 1 week ago, she had the hematoma removed in the Wound Care office and was started on Amoxicillin. For the last week, her left leg has had increased, swelling, redness, and pain. Patient denies fevers, but does endorse generalized body aches and chills. Given the worsening condition; she presented to the ED today. There is a large/open LE wound lateral to the knee. The wound base is brown and moist with small amount of serosang drainage present to the dressing that freelance writer removed. Of note, the patient his history of bilateral knee replacements-- concerns with infection increased given hardware. Decision was made to trasnfer given integrity of wound and cellulitis. Patient was started on Vanco and Zosyn at [facility] and given 1L IVF. No leukocytosis or elevated procalcitonin noted on admit labs. ESR and CRP elevated, blood cultures collected at [facility]. Dopplers completed and DVT ruled out. Discharge Recommendations: No further therapy required at discharge. PT Equipment Recommendations Equipment Needed: No Assessment Body structures, Functions, Activity limitations: Decreased functional mobility ;Decreased endurance Prognosis: Good Decision Making: Medium Complexity PT Education: PT Role;Goals;Plan of Care;General Safety REQUIRES PT FOLLOW UP: Yes Activity Tolerance Activity Tolerance: Patient limited by endurance;Patient limited by pain Patient Diagnosis(es): There were no encounter diagnoses. has a past medical history of Essential hypertension. has no past surgical history on file. Restrictions Restrictions/Precautions Restrictions/Precautions: Fall Risk, Up as Tolerated Required Braces or Orthoses?: No Vision/Hearing Vision: Within Functional Limits Hearing: Within functional limits Subjective General Patient assessed for rehabilitation services?: Yes Family / Caregiver Present: No Follows Commands: Within Functional Limits General Comment Comments: Pt with wound on Lt knee Pain Screening Patient Currently in Pain: Yes Pain Assessment Pain Assessment: Faces Pain Level: 4 Taylor-Miller Pain Rating: Hurts little more Pain Type: Acute pain Pain Location: Leg Pain Orientation: Left Vital Signs Patient Currently in Pain: Yes Pre Treatment Pain Screening Intervention List: Patient able to continue with treatment Orientation Orientation Overall Orientation Status: Within Normal Limits Social/Functional History Social/Functional History Lives With: Alone Type of Home: House Home Layout: Two level, Able to Live on Main level with bedroom/bathroom Home Access: Ramped entrance Bathroom Equipment: Shower chair, Hand-held shower Home Equipment: Rolling walker, Quad cane, Grab bars. Pt usually does not ambulate with a device. 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 Cognition WNL Objective AROM RLE (degrees) RLE AROM: WFL AROM LLE (degrees) LLE AROM : WFL AROM RUE (degrees) RUE AROM : WFL AROM LUE (degrees) LUE AROM : WFL Strength RLE Strength RLE: WFL Strength LLE Strength LLE: WFL Strength RUE Strength RUE: WFL Strength LUE Strength LUE: WFL Motor Control Gross Motor?: WFL Sensation Overall Sensation Status: WFL Bed mobility Rolling to Left: Independent Rolling to Right: Independent Supine to Sit: Stand by assistance Sit to Supine: Stand by assistance Scooting: Stand by assistance Transfers Sit to Stand: Contact guard assistance Stand to sit: Contact guard assistance Ambulation Ambulation?: Yes Ambulation 1 Surface: level tile Device: Rolling Walker Assistance: Contact guard assistance Gait Deviations: Slow Maryann Distance: 300 ft Comments: Pt fatigued and SOB after ambulation. Stairs/Curb Stairs?: No Balance Sitting - Static: Good Sitting - Dynamic: Good Standing - Static: Good Standing - Dynamic: Good;- Comments: Standing balance with rolling walker Plan Plan Times per week: 5x/week Current Treatment Recommendations: Strengthening, Gait Training, Stair training, Balance Training, Endurance Training, Functional Mobility Training, Transfer Training, Safety Education & Training, Home Exercise Program Safety Devices Type of devices: Left in bed, Nurse notified, Call light within reach, Gait belt AM-PAC Score AM-PAC Inpatient Mobility without Stair Climbing Raw Score : 17 (12/15/181058) AM-PAC Inpatient without Stair Climbing T-Scale Score : 48.47 (12/15/181058) Mobility Inpatient CMS 0-100% Score: 32.72 (12/15/181058) Mobility Inpatient without Stair CMS G-Code Modifier : CJ (12/15/181058) Goals Short term goals Time Frame for Short term goals: 10 visits Short term goal 1: Independent transfers Short term goal 2: Independent ambulation with least restricitve device 300 ft Short term goal 3: Navigate 4 steps with 1 rail Short term goal 4: Pt to tolerate 30 minutes of activity to improve endurance. Patient Goals Patient goals : Have leg healed. Therapy Time Individual Concurrent Group Co-treatment Time In 0925 Time Out 0950 Minutes 25 Timed Code Treatment Minutes: 16 Minutes DAMIEN DEL ROSARIO PT * Dirk Pedro, DO - 12/15/2018 10:07 AM EDT [facility] IN-PATIENT SERVICE [facility] Progress Note 12/15/2018 2:17 PM Name: Carly Marcelino Acct: [id number] Room: IP Day: 1 Admit Date: 12/14/2018 10:55 PM PCP: No primary care provider on file. Code Status: Full Code Subjective: C/C: Left knee wound, cellulitis Interval History Status: improved. Patient denies any fever or chills. Continued drainage from the left knee. Denies any chest pain, shortness of breath, nausea or vomiting. Brief History: This is a 78-year-old female that fell approximately 1 month ago. She developed a hematoma of the left knee and been following with the wound care center. Approximately 1 week ago she had the hematoma evacuated and the wound care office and was started on amoxicillin. Since that time she is had increased swelling, redness and pain and presented to the outside facility and was transferred here for further evaluation. Review of Systems: Constitutional: negative for chills, fevers, sweats Respiratory: negative for cough, dyspnea on exertion, hemoptysis, shortness of breath, wheezing Cardiovascular: negative for chest pain, chest pressure/discomfort, lower extremity edema, palpitations Gastrointestinal: negative for abdominal pain, constipation, diarrhea, nausea, vomiting Neurological: negative for dizziness, headache Medications: Allergies: Allergies Allergen Reactions Dilantin [Phenytoin Sodium Extended] Anaphylaxis Depakote [Divalproex Sodium] Other (See Comments) Fine motor tremors Labetalol Other (See Comments) Intolerance Norvasc [Amlodipine] intolterance Procardia [Nifedipine] intolerance Tegretol [Carbamazepine] Itching Current Meds: Scheduled Meds: docusate sodium 100 mg Oral BID vancomycin (VANCOCIN) intermittent dosing (placeholder) Other RX Placeholder vancomycin 1,250 mg Intravenous Q24H baclofen 10 mg Oral Daily gabapentin 300 mg Oral TID losartan 100 mg Oral Daily magnesium oxide 400 mg Oral Daily stavudine 15 mg Oral Q12H triamterene-hydrochlorothiazide 1 tablet Oral Daily zafirlukast 20 mg Oral BID sodium chloride flush 10 mL Intravenous 2 times per day enoxaparin 40 mg Subcutaneous Daily piperacillin-tazobactam 3.375 g Intravenous Q8H Continuous Infusions: sodium chloride 100 mL/hr at 12/15/18 0046 PRN Meds: morphine, sodium chloride flush, acetaminophen Data: Past Medical History: has a past medical history of Essential hypertension. Social History: reports that she quit smoking about 42 years ago. She has never used smokeless tobacco. Family History: No family history on file. Vitals: BP 111/66 Pulse 80 Temp 98.3 F (36.8 C) (Oral) Resp 21 Ht 5' 6 (1.676 m) Wt 196 lb 11.2 oz (89.2 kg) SpO2 98% BMI 31.75 kg/m Temp (24hrs), Av.3 F (36.8 C), Min:98.3 F (36.8 C), Max:98.3 F (36.8 C) No results for input(s): POCGLU in the last 72 hours. I/O (24Hr): No intake or output data in the 24 hours ending 12/15/18 1417 Labs: Hematology: Recent Labs 12/15/18 1025 WBC 6.4 RBC 2.69* HGB 7.7* HCT 25.5* MCV 94.8 MCH 28.6 MCHC 30.2 RDW 14.5* PLT 232 MPV 9.6 INR 1.0 Chemistry: Recent Labs 12/15/18 1025 NA 138 K 4.3 CL 103 CO2 23 GLUCOSE 78 BUN 20 CREATININE 1.27* MG 2.2 ANIONGAP 12 LABGLOM 41* GFRAA 49* CALCIUM 8.6 CAION 1.21 PHOS 3.5 Recent Labs 12/15/18 1025 PROT 6.6 LABALBU 3.3* AST 15 ALT 8 ALKPHOS 67 BILITOT 0.25* ABG:No results found for: POCPH, PHART, PH, POCPCO2, LLR4SYE, PCO2, POCPO2, PO2ART, PO2, POCHCO3, WEZ0IZR, HCO3, NBEA, PBEA, BEART, BE, THGBART, THB, DAH9VYC, NSCW5YYT, M1AURVLQ, O2SAT, FIO2 Lab Results Component Value Date/Time SPECIAL NOT REPORTED 12/15/2018 12:37 AM Lab Results Component Value Date/Time CULTURE PENDING 12/15/2018 12:37 AM Radiology: No results found. Physical Examination: General appearance: alert, cooperative and no distress Mental Status: oriented to person, place and time and normal affect Lungs: clear to auscultation bilaterally, normal effort Heart: regular rate and rhythm, no murmur Abdomen: soft, nontender, nondistended, normal bowel sounds, no masses, hepatomegaly, splenomegaly Extremities: no edema, redness, tenderness in the calves Skin: no gross lesions, rashes, induration Assessment: Hospital Problems Last Modified POA * (Principal) Left leg cellulitis 12/15/2018 Yes Fall 12/15/2018 Yes Essential hypertension 12/15/2018 Yes Normocytic anemia 12/15/2018 Yes At risk for malnutrition 12/15/2018 Yes Open wound of left knee 12/15/2018 Yes Traumatic hematoma of knee, left, sequela 12/15/2018 Yes Plan: 1. Continue antibiotics as ordered 2. Resume home medications 3. Monitor and control blood pressure 4. Await cultures 5. Monitor renal function, follow labs 6. IV fluids as ordered 7. GI and DVT prophylaxis 8. Wound care 9. Orthopedic consultation Dirk Pedro DO 12/15/2018 2:17 PM * Theodora Eng RN - 12/15/2018 2:22 AM EDT Pt refused yo move IV stated maybe tomorrow. * Hank Weems [facility] - 12/15/2018 1:05 AM EDT Pharmacy Note Vancomycin Consult Carly Marcelino is a 78 y.o. female started on Vancomycin for Cellulitis/possible Sepsis; consult received from Dr. Elizabeth Corado to manage therapy. Also receiving the following antibiotics: Zosyn. Patient Active Problem List Diagnosis Left leg cellulitis Allergies: Dilantin [phenytoin sodium extended]; Depakote [divalproex sodium]; Labetalol; Norvasc [amlodipine]; Procardia [nifedipine]; and Tegretol [carbamazepine] Temp max: 98.3 No results for input(s): BUN in the last 72 hours. No results for input(s): CREATININE in the last 72 hours. No results for input(s): WBC in the last 72 hours. No intake or output data in the 24 hours ending 12/15/18 0052 Culture Date Source Results Ht Readings from Last 1 Encounters: 12/14/18 5' 6 (1.676 m) Wt Readings from Last 1 Encounters: 12/14/18 196 lb 11.2 oz (89.2 kg) Body mass index is 31.75 kg/m . CrCl cannot be calculated (Patient's most recent lab result is older than the maximum 10 days allowed.). Goal Trough Level: 15-20 mcg/mL Assessment/Plan: Patient transferred from [facility] where patient received vancomycin 1000 mg IV x1 dose. Vancomycin random level is pending at 6 am. Thank you for the consult. Will continue to follow. Hank Weems Pharm.D. 12/15/2018 1:04 AM Hank Weems Pharm.D. 12/15/2018 12:57 AM documented in this encounter Assessments Diagnosis Wound infection: Left knee status post hematoma evacuation- Primary Posttraumatic wound infection not elsewhere classified Left leg cellulitis: Secondary to wound infection following hematoma evacuation Cellulitis and abscess of leg, except foot Fall Unspecified fall Essential hypertension Unspecified essential hypertension Normocytic anemia Anemia, unspecified At risk for malnutrition Open wound of left knee Open wound of knee, leg (except thigh), and ankle, without mention of complication Traumatic hematoma of knee, left, sequela Anemia, normocytic normochromic Anemia, unspecified Hypocalcemia Hypoalbuminemia Other disorders of plasma protein metabolism LALY (acute kidney injury) (HCC) Acute kidney failure, unspecified Diagnosis Onset Date Resolution Status Chronic venous hypertension chronic Edema leg chronic Lymphedema of both lower extremities chronic Traumatic wound chronic Chief Complaint and Reason for Visit Chief Complaint Left Knee Hematoma Z96.653 Z12.31 Open Wound Traumatic wound Reason for Visit Chronic venous hyper tension Edema leg Lymphedema of both lower extremities Traumatic wound Chief Complaint i65.23 Chief Complaint Screening Chief Complaint I73.9 Chief Complaint M25.512 I65.23 Chief Complaint Screening 3 Weeks legs and feet tingle Chief Complaint legs and feet tingle Amb Documentation Amb Documentation Amb Documentation Hospital Follow Up- brain bleed 6 weeks Reason for Visit Subarachnoid hemorrh age Blurred vision, bilateral Chief Complaint legs and feet tingle Amb Documentation Amb Documentation Amb Documentation Hospital Follow Up- brain bleed 6 weeks Amb Documentation Amb Documentation BP issues Reason for Visit Subarachnoid hemorrh age Blurred vision, bilateral Coronary artery disease Essential (primary) hypertension Subarachnoid hemorrhage Chronic venous hypertension Lymphedema of both lower extremities Chief Complaint legs and feet tingle Amb Documentation Amb Documentation Amb Documentation Hospital Follow Up- brain bleed 6 weeks Amb Documentation Amb Documentation BP issues Amb Documentation Amb Documentation 9 month follow up Reason for Visit Subarachnoid hemorrh age Blurred vision, bilateral Coronary artery disease Essential (primary) hypertension Subarachnoid hemorrhage Chronic venous hypertension Lymphedema of both lower extremities Anxiety Chief Complaint legs and feet tingle Amb Documentation Amb Documentation Amb Documentation Hospital Follow Up- brain bleed 6 weeks Amb Documentation Amb Documentation BP issues Amb Documentation Amb Documentation 9 month follow up hospital follow up Reason for Visit Subarachnoid hemorrh age Blurred vision, bilateral Coronary artery disease Essential (primary) hypertension Subarachnoid hemorrhage Chronic venous hypertension Lymphedema of both lower extremities Anxiety Chief Complaint Amb Documentation Amb Documentation BP issues Amb Documentation Amb Documentation 9 month follow up hospital follow up Amb Documentation 2 month Reason for Visit Anxiety Anxiety Essential (primary) hypertension Hyponatremia Coronary artery disease Essential (primary) hypertension Subarachnoid hemorrhage Chronic venous hypertension Lymphedema of both lower extremities History of head injury Chief Complaint * [facility] * CARLY MARCELINO is being seen for follow-up of a hospitalization for. * 81-year-old white female who I saw recently at [facility] for unstable angina and underwent diagnostic cardiac catheterization that revealed high-grade stenosis in the proximal rightcoronary artery with ulcerated plaque. Her other coronaries were heavily calcified but no occlusive disease. She underwent successful PCI of the RCA with no complications. Since then she had 3 visit to the hospital for variety of complaints including dizziness and palpitations but there has been nosolid evidence of any abnormalities of concern. Currently she is doing well and has been active arou nd her house without any problems. She maintains dual antiplatelet therapy with Brilinta and the aspirin. Her blood pressure is under control. She is on statin therapy with a goal LDL of 70 mg/dL or less. Cardiac and pulmonary examinations were normal. She has no lower extremity edema and no side effect of medications. While in the hospital recently she had carotid scan which revealed less than 70% stenosis in the left internal carotid artery. She remains asymptomatic in that category. * Assessment/recommendations: * 1 coronary artery disease as manifested by high-grade stenosis in the proximal RCA requiring placement of drug-eluting stent November 2021. Her other coronary arteries were severely calcified but with no flow-limiting lesions. Patient will remain on antiplatelet therapy indefinitely and will remain on dual antiplatelet therapy for the next 12 months. Aggressive management of risk factor for CAD was emphasized. Cardiac rehab at [facility] is scheduled. * 2 hypertension, currently under control on small dose of metoprolol. * 3 hyperlipidemia on maximal dose of atorvastatin well-tolerated. Goal LDL less than 70 mg/dL. * 4 bilateral carotid disease left more than right remains asymptomatic. Presently on aggressive medical therapy. * 5 slight overweight, encouraged the patient to remain physically active with no limitations of physical activities. Medications Administered Section Active Administered Medications - up to 3 most recent administrations Medication Order MAR Action Action Date Dose Rate Site fluorescein-benoxinate 0.25-0.4 % 1 Drop (FLURESS) 1 Drop, BOTH EYES, DIRECTED, Starting on Sun12/27/21 at 1330, Until Sun12/28/21 at 0129, Administer for applanation tonometry. In the event of a Fluress shortage, administer 1 drop of Ranjana-Fluor into both eyes as directed for applanation tonometry., [facility] MED ORDERS Given 12/27/2021 1:30 PM EDT 1 Drop PHENYLephrine 2.5 % 1 Drop (AK-DILATE, PUMA-SYNEPHRINE) 1 Drop, BOTH EYES, DIRECTED, Starting on Sun12/27/21 at 1330, Until Sun12/28/21 at 0129, Administer for dilation PROTECT FROM LIGHT, [facility]IC MED ORDERS Given 12/27/2021 1:30 PM EDT 1 Drop proparacaine 0.5 % 1 Drop (ALCAINE) 1 Drop, BOTH EYES, DIRECTED, Starting on Sun12/27/21 at 1330, Until Sun12/28/21 at 0129, Administer for pneumo tonometry, tonopen tonometry, or pachymetry. In the event of a proparacaine shortage, administer 1 drop of tetracaine 0.5% ophthalmic drops into both eyes as directed for pneumo tonometry, tonopen tonometry, or pachymetry, [facility] MED ORDERS Given 12/27/2021 1:30 PM EDT 1 Drop tropicamide 1 % 1 Drop (MYDRIACYL) 1 Drop, BOTH EYES, DIRECTED, Starting on Sun12/27/21 at 1330, Until Sun12/28/21 at 0129, Administer for dilation, [facility]IC MED ORDERS Given 12/27/2021 1:30 PM EDT 1 Drop Reason for Referral Specialty Diagnoses / Procedures Referred By Fabricio hennessy Referred To Contact Urology Diagnoses Postoperative urinary retention Kunz catheter in place Kymberly Cabrera APRN-WEB PROGRAMMER [address] [facility] [place] [address] Referral ID Status Reason Start Date Expiration Date V isits Requested Visits Authorized [id number] Authorized 08/30/2023 08/29/2024 3 3 Comments S/p SDH katty holes crani 6/2 developed retention post-op kunz removed today after discussion and wishes to follow up closer to home, Specialty Diagnoses / Procedures Referred By Fabricio hennessy Referred To Contact Gerontology Diagnoses Polypharmacy Derick Edwards APRN-CNP [address] [place] [address] [facility] [address] [place] [address] Referral ID Status Reason Start Date Expiration Date V isits Requested Visits Authorized [id number] Pending Review 08/24/2023 08/23/2024 3 3 Scheduling Instructions Please call to schedule an appointment. Specialty Diagnoses / Procedures Referred By Contac t Referred To Contact Radiology Diagnoses SDH (subdural hematoma) (HCC) Procedures CT HEAD W/O CONTRAST Derick Edwards APRN-CNP [address] [place] [address] [facility] [address] SCAN Referral ID Status Reason Start Date Expiration Date V isits Requested Visits Authorized [id number] Authorized 08/24/2023 08/23/2024 1 1 Specialty Diagnoses / Procedures Referred By Contac t Referred To Contact Neurology Diagnoses Encephalopathy Derick Edwards APRN-CNP [address] [place] [address] [facility] [address] [place] [address] Referral ID Status Reason Start Date Expiration Date V isits Requested Visits Authorized [id number] Authorized 08/24/2023 08/23/2024 3 3 Scheduling Instructions Please call the Neurology Clinic at to schedule an appointment if one was not made for you today. Question Answer Patient to be evaluated for: Traumatic Brain Injury Sequelae Comments Dr. Alvarado; patient previously seen inpatient with Dr. Yuan Specialty Diagnoses / Procedures Referred By Contac t Referred To Contact Urology Diagnoses Urinary retention Derick Edwards APRN-CNP [address] [place] [address] [facility] UROLOGIC SURGERY [address] [place] [address] Referral ID Status Reason Start Date Expiration Date V isits Requested Visits Authorized [id number] Authorized 08/24/2023 08/23/2024 3 3 Scheduling Instructions Please call the Urology department at , option 1 to schedule an appointment if one was not made for you today. Question Answer Reason for Referral Kunz Catheter [7] Specialty Diagnoses / Procedures Referred By Contac t Referred To Contact Radiology Diagnoses Subdural hematoma (HCC) Procedures CT HEAD W/O CONTRAST SheaJune,N-WEB PROGRAMMER [address] [facility] [place] [id number] S [address] SCAN Referral ID Status Reason Start Date Expiration Date V isits Requested Visits Authorized [id number] Authorized 07/31/2023 07/30/2024 1 1 Specialty Diagnoses / Procedures Referred By Contac t Referred To Contact Neurology Diagnoses SAH (subarachnoid hemorrhage) (HCC) Procedures CONSULT TO NEUROLOGY OFFICE/OUTPATIENT [facility] MDM 60 MINUTES FaChristopher gloria, CAMERA MAKER.WEB PROGRAMMER [address] [place] [id number] Referral ID Status Reason Start Date Expiration Date Visits Requested Visits Authorized [id number] Authorized PCP Requested Referral 06/29/2023 06/28/2024 1 1 Specialty Diagnoses / Procedures Referred By Contac t Referred To Contact Psychology Diagnoses SAH (subarachnoid hemorrhage) (HCC) Anxiety attack Procedures CONSULT TO PSYCHOLOGY OFFICE/OUTPATIENT [facility] MDM 60 MINUTES FaChristopher gloria, CAMERA MAKER.WEB PROGRAMMER [address] [facility] [address] [place] [phone] Referral ID Status Reason Start Date Expiration Date Visits Requested Visits Authorized [id number] Pending Review PCP Requested Referral 06/29/2023 06/28/2024 1 1 Specialty Diagnoses / Procedures Referred By Contac t Referred To Contact [facility] Diagnoses SAH (subarachnoid hemorrhage) (HCC) Anxiety attack Physical deconditioning Procedures CONSULT TO PHYSICAL THERAPY PHYSICAL THERAPY EVALUATION HIGH COMPLEX 45 MINS FaChristopher gloria, CAMERA MAKER.WEB PROGRAMMER [address] [place] [address] [facility] [place] [address] [place] [address] Referral ID Status Reason Start Date Expiration Date Visits Requested Visits Authorized [id number] Authorized PCP Requested Referral Auto-Generate d Referral 06/29/2023 06/28/2024 99 99 Specialty Diagnoses / Procedures Referred By Fabricio hennessy Referred To Contact MR IMAGING Diagnoses Nontraumatic subarachnoid hemorrhage (HCC) Procedures MRI BRAIN WO/W IVCON MRI BRAIN BRAIN STEM W/O W/CONTRAST MATERIAL Delfin Dow, CAMERA MAKER.WEB PROGRAMMER [address] [place] [address] [place] [address] Referral ID Status Reason Start Date Expiration Date Visits Requested Visits Authorized [id number] Pending Review Auto-Generat ed Referral 07/06/2023 08/04/2024 1 1 Additional Source Comments INFORMATION SOURCE (unrecogn ized section and content) DATE CREATED AUTHOR 09/10/2017 [facility] DATE CREATED AUTHOR AUTHOR'S ORGANIZ ATION 12/21/2018 [facility] DATE CREATED AUTHOR AUTHOR'S ORGANIZ ATION 02/10/2022 [facility] DATE CREATED AUTHOR AUTHOR'S ORGANIZ ATION 05/24/2022 [facility] DATE CREATED AUTHOR AUTHOR'S ORGANIZ ATION 12/21/2022 [facility] DATE CREATED AUTHOR AUTHOR'S ORGANIZ ATION 05/01/2023 [facility] DATE CREATED AUTHOR AUTHOR'S ORGANIZ ATION 05/11/2023 [facility] DATE CREATED AUTHOR AUTHOR'S ORGANIZ ATION 05/30/2023 [facility] DATE CREATED AUTHOR AUTHOR'S ORGANIZ ATION 07/19/2023 [facility] DATE CREATED AUTHOR AUTHOR'S ORGANIZ ATION 07/31/2023 [facility] DATE CREATED AUTHOR AUTHOR'S ORGANIZ ATION 08/12/2023 [facility] DATE CREATED AUTHOR AUTHOR'S ORGANIZ ATION 08/29/2023 [facility] DATE CREATED AUTHOR AUTHOR'S ORGANIZ ATION 09/01/2023 [facility] Reason for Visit (unrecogniz ed section and content) Status Reason Specialty Diagnoses / Procedures Referre d By Contact Referred To Contact Diagnoses Left leg cellulitis left leg cellulitis Laurie Lemus DO [address] [place] [address] [facility] Reason Comments Retinal arterial macroaneurysms Reason Comments Dizziness Reason Comments Palpitations Red Rash Face Reason Comments Radiology XR Reason Comments Pain Established Patient Reason Onset Date Comments 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 Up 05/09/2023 [facility] Reason Comments Blurred Vision Both Eyes Reason Comments Results Reason Comments New Patient Seizures Epilepsy Reason Comments Symptoms Blood pressure is hi gh Reason Comments medication concern seizure meds Reason Comments Hospital Follow Up Reason Comments Established Patient Follow-Up Subarachnoid Hemorrhage Reason Comments Trauma/complex Medical Situation Specialty Diagnoses / Procedures Referred By Contac t Referred To Contact Emergency Medicine Diagnoses Traumatic subdural hemorrhage with loss of consciousness status unknown, initial encounter TRAUMA fall, subdural bleed with shift Procedures NO [email or web address] [address] [place], [place] [address] [address] Phone: [phone] [email or web address] [address] [place] [id number] Phone: [phone] Referral ID Status Reason Start Date Expiration Date Visits Re quested Visits Authorized [id number] 3 3 Reason Comments Transitional Care Management Care Coordination Reason Comments SNF/Hospice Care Coordination Transition Of Care Medical Record Review Reason Comments Trauma 2 Specialty Diagnoses / Procedures Referred By Contac t Referred To Contact Hospital Medicine Diagnoses AMS change SDH with midline shift Procedures Gavino Baptiste MD [address] [place] [address] [email or web address] [address] [place] [phone] Phone: [phone] Referral ID Status Reason Start Date Expiration Date Visits Re quested Visits Authorized [id number] 3 3 Reason Comments New patient, to establish relationship Other sympt/complt bladder kunz Specialty Diagnoses / Procedures Referred By Contac t Referred To Contact Urology Diagnoses Urinary retention Derick Edwards, CAMERA MAKER-DOMINGO [address] [place], [place] [address] [phone] [facility] UROLOGIC SURGERY [address] [place] [phone] Referral ID Status Reason Start Date Expiration Date V isits Requested Visits Authorized [id number] Authorized 08/24/2023 08/23/2024 3 3 Reason Comments Post Op Check Specialty Diagnoses / Procedures Referred By Fabricio t Referred To Contact Radiology Diagnoses SDH (subdural hematoma) (HCC) Procedures CT HEAD W/O CONTRAST Derick Edwards, CAMERA MAKER-WEB PROGRAMMER [address] [place] [phone] S [address] SCAN Referral ID Status Reason Start Date Expiration Date Visits Re quested Visits Authorized [id number] Closed 08/24/2023 08/23/2024 1 1 Care Teams (unrecognized sec tion and content) Team Status: Inactive Member Role Status Dates Hardeep Mckenzie DO Primary Care Provider, Attending Provider Active Team Status: Active Member Role Status Dates Hardeep Mckenzie DO Primary Care Provider Active Team Status: Inactive Member Role Status Dates Hardeep Mckenzie DO Primary Care Provider Active Royce Douglas MD Attending Provider Active Eye Specialist Relationship Specialty Start Date End Date Hardeep Mckenzie DO [address] [address] PCP - General Family Medicine 07/05/15 Eye Specialist Relationship Specialty Start Date End Date Hardeep Mckenzie DO [address] [address] PCP - General Family Medicine 07/05/15 Eye Specialist Relationship Specialty Start Date End Date Hardeep Mckenzie DO [address] [address] PCP - General Family Medicine 07/05/15 Team Status: Inactive Member Role Status Dates Hardeep Mckenzie DO Primary Care Provider Active Patrick Howe MD Attending Provider Active Team Status: Inactive Member Role Status Dates Hardeep Mckenzie DO Primary Care Provid er, Attending Provider Active Start: February 07, 2023 End: February 07, 2023 Team Status: Inactive Member Role Status Dates Theodora Rodriguez MD Attending Provider Active Sta rt: February 12, 2023 End: February 12, 2023 Team Status: Inactive Member Role Status Dates Hardeep Mckenzie DO Primary Care Provider Active Start: April 30, 2023 End: April 30, 2023 Valerie Ponce APRN Emergency Provider Active Start: April 30, 2023 End: April 30, 2023 Eye Specialist Relationship Specialty Start Date End Date Hardeep Mckenzie DO [address] [address] PCP - General Family Medicine 07/05/15 Eye Specialist Relationship Specialty Start Date End Date Hardeep Mckenzie DO [address] [address] PCP - General Family Medicine 07/05/15 Eye Specialist Relationship Specialty Start Date End Date Hardeep Mckenzie DO [address] [address] PCP - General Family Medicine 07/05/15 Eye Specialist Relationship Specialty Start Date End Date Hardeep Mckenzie DO [address] [address] PCP - General Family Medicine 07/05/15 Team Status: Active Member Role Status Dates Hardeep Mckenzie DO Primary Care Provid er, Attending Provider Active Start: May 03, 2023 Team Status: Active Member Role Status Dates Hardeep Mckenzie DO Primary Care Provid er, Attending Provider Active Start: May 04, 2023 Team Status: Active Member Role Status Dates Hardeep Mckenzie DO Primary Care Provid er, Attending Provider Active Start: May 06, 2023 Team Status: Active Member Role Status Dates Hardeep Mckenzie DO Primary Care Provid er, Attending Provider Active Start: May 07, 2023 Team Status: Active Member Role Status Dates Hardeep Mckenzie DO Primary Care Provider Active Start: May 08, 2023 KRISHAN Arredondo Attending Provider Active St art: May 08, 2023 Team Status: Active Member Role Status Dates Hardeep Mckenzie DO Primary Care Provider Active Start: May 14, 2023 Gurmeet Osullivan LPN Attending Provider Active St art: May 14, 2023 Team Status: Inactive Member Role Status Dates Hardeep Mckenzie DO Primary Care Provid er, Attending Provider Active Start: May 14, 2023 End: May 14, 2023 Team Status: Inactive Member Role Status Dates Hardeep Mckenzie DO Primary Care Provider Active Start: May 30, 2023 End: May 30, 2023 Theodora Rodriguez MD Attending Provider Active Sta rt: May 30, 2023 End: May 30, 2023 Eye Specialist Relationship Specialty Start Date End Date Hardeep Mckenzie DO [address] [address] PCP - General Family Medicine 07/05/15 Eye Specialist Relationship Specialty Start Date End Date Hardeep Mckenzie DO [address] [address] PCP - General Family Medicine 07/05/15 Team Status: Active Member Role Status Dates Hardeep Mckenzie DO Primary Care Provider Active Start: June 05, 2023 Cheri Vilchis LPN Attending Provider Active S tart: June 05, 2023 Team Status: Active Member Role Status Dates Hardeep Mckenzie DO Primary Care Provider Active Start: June 13, 2023 Cheri Vilchis LPN Attending Provider Active S tart: June 13, 2023 Team Status: Inactive Member Role Status Dates Hardeep Mckenzie DO Primary Care Provider Active Start: June 19, 2023 End: June 19, 2023 Chidi Jewell MD Attending Provider Activ e Start: June 19, 2023 End: June 19, 2023 Eye Specialist Relationship Specialty Start Date End Date Hardeep Mckenzie DO [address] [address] PCP - General Family Medicine 07/05/15 Team Status: Active Member Role Status Dates Hardeep Mckenzie DO Primary Care Provider Active Start: June 22, 2023 Gurmeet Osullivan LPN Attending Provider Active St art: June 22, 2023 Team Status: Active Member Role Status Dates Hardeep Mckenzie DO Primary Care Provider Active Start: June 25, 2023 Cheri Vilchis LPN Attending Provider Active S tart: June 25, 2023 Team Status: Inactive Member Role Status Dates Hardeep Mckenzie DO Primary Care Provid er, Attending Provider Active Start: June 28, 2023 End: June 28, 2023 Eye Specialist Relationship Specialty Start Date End Date Hardeep Mckenzie DO [address] [address] PCP - General Family Medicine 07/05/15 Team Status: Inactive Member Role Status Dates Hardeep Mckenzie DO Primary Care Provid er, Attending Provider Active Start: July 16, 2023 End: July 16, 2023 Team Status: Active Member Role Status Dates Theodora Rodriguez MD Apprentice Painter Hand Active Hardeep Mckenzie DO Primary Care Provider Active Team Status: Active Member Role Status Dates Hardeep Mckenzie DO Primary Care Provider Active Start: July 17, 2023 Cheri Vilchis LPN Attending Provider Active S tart: July 17, 2023 Team Status: Active Member Role Status Dates Hardeep Mckenzie DO Primary Care Provider Active Start: August 08, 2023 Jazmin Mcneal MD Attending Provider Active Star t: August 08, 2023 Team Status: Inactive Member Role Status Dates Hardeep Mckenzie DO Primary Care Provider Active Start: September 03, 2023 End: September 03, 2023 Theodora Rodriguez MD Attending Provider Active Sta rt: September 03, 2023 End: September 03, 2023 Goals (unrecognized section and content) Goals may be documented in a n alternate section Source Comments (unrecognize d section and content) In the event this informatio n is protected by the Federal Confidentiality of Alcohol and Drug Abuse Patient Records regulations: The Federal rules restrict any use of the information to criminally investigate or prosecute any alcohol or drug abuse patient.[facility] the event this information is protected by the Federal Confidentiality of Alcohol and Drug Abuse Patient Records regulations: The Federal rules restrict any use of the information to criminally investigate or prosecute any alcohol or drug abuse patient.[facility] the event this information is protected by the Federal Confidentiality of Alcohol and Drug Abuse Patient Records regulations: The Federal rules restrict any use of the information to criminally investigate or prosecute any alcohol or drug abuse patient.[facility] the event this information is protected by the Federal Confidentiality of Alcohol and Drug Abuse Patient Records regulations: The Federal rules restrict any use of the information to criminally investigate or prosecute any alcohol or drug abuse patient.[facility] the event this information is protected by the Federal Confidentiality of Alcohol and Drug Abuse Patient Records regulations: The Federal rules restrict any use of the information to criminally investigate or prosecute any alcohol or drug abuse patient.[facility] the event this information is protected by the Federal Confidentiality of Alcohol and Drug Abuse Patient Records regulations: The Federal rules restrict any use of the information to criminally investigate or prosecute any alcohol or drug abuse patient.[facility] Center[facility] the event this information is protected by the Federal Confidentiality of Alcohol and Drug Abuse Patient Records regulations: The Federal rules restrict any use of the information to criminally investigate or prosecute any alcohol or drug abuse patient.[facility] Center[facility] the event this information is protected by the Federal Confidentiality of Alcohol and Drug Abuse Patient Records regulations: The Federal rules restrict any use of the information to criminally investigate or prosecute any alcohol or drug abuse patient.[facility] the event this information is protected by the Federal Confidentiality of Alcohol and Drug Abuse Patient Records regulations: The Federal rules restrict any use of the information to criminally investigate or prosecute any alcohol or drug abuse patient.[facility] Center[facility] the event this information is protected by the Federal Confidentiality of Alcohol and Drug Abuse Patient Records regulations: The Federal rules restrict any use of the information to criminally investigate or prosecute any alcohol or drug abuse patient.[facility] Center[facility] the event this information is protected by the Federal Confidentiality of Alcohol and Drug Abuse Patient Records regulations: The Federal rules restrict any use of the information to criminally investigate or prosecute any alcohol or drug abuse patient.[facility] Center[facility] the event this information is protected by the Federal Confidentiality of Alcohol and Drug Abuse Patient Records regulations: The Federal rules restrict any use of the information to criminally investigate or prosecute any alcohol or drug abuse patient.[facility] CenterIn the event this information is protected by the Federal Confidentiality of Alcohol and Drug Abuse Patient Records regulations: The Federal rules restrict any use of the information to criminally investigate or prosecute any alcohol or drug abuse patient.[facility] Inactive Administered Medications - up to 3 most recent administrations Administered Medications (un recognized section and content) Medication Order MAR Action Action Date Dose Rate Site lactated ringers 500 mL iv bolus 500 mL, INTRAVENOUS, at 500 mL/hr, Administer over 1 Hours, ONCE, 1 dose, On Angely 05/03/23 at 1230 CCT Only: New Bag (No Charge) 05/03/2023 12:30 PM EST 500 mL 500 mL/hr Scheduled Active and Recently Administ ered Medications (unrecognized section and content) Medication Order 08/02/2023 08/03/2023 08/04/2023 acetaminophen (TYLENOL) tablet 650 mg, Oral, Every 6 hours, First dose on 07/29/23 at 1718, Until Discontinued 0100 (Hold/Not Given - Provider: Billie Lopez RN - Reason: Patient sleeping)0552 (Given - Provider: Billie Lopez RN)1200 (Hold/Not Given - Provider: Trish Oconnor RN - Reason: Patient refused)1841 (Given - Provider: Trish Oconnor RN) 0045 (Hold/Not Given - Provider: Yodit Gracia LPN - Reason: Patient sleeping)0600 (Hold/Not Given - Provider: Jeffery Washington RN - Reason: Patient refused)0811 (Given - Provider: Ester Jiménez RN)1553 (Given - Provider: Lisset Polanco RN) 0647 (Given - Provider: Yodit Gracia LPN)1200 (Due - Provider: Anahy Stahl)1800 (Due - Provider: Anahy Stahl)2200 (Due - Provider: Yodit Gracia LPN) atorvastatin (LIPITOR) tablet 10 mg, Oral, DAILY, First dose (after last modification) on Sun08/01/23 at 0900, Until Discontinued 0959 (Given - Provider: Trish Oconnor RN) 08 (Given - Provider: Ester Jiménez RN) 09 (Given - Provider: John Vick RN) enoxaparin (LOVENOX) 30 MG/0.3ML injection 30 mg 30 mg, Subcutaneous, 2 TIMES DAILY, First dose on Sun07/31/23 at 2200, Until Discontinued 0959 (Given - Provider: Trish Oconnor RN)211 (Given - Provider: Yodit Gracia LPN) 08 (Given - Provider: Ester Jiménez RN)210 (Given - Provider: Yodit Gracia LPN) 0929 (Given - Provider: John Vick, CARLOS)2100 (Due) ferrous sulfate tablet TABS 325 mg, Oral, DAILY, First dose on Sun08/02/23 at 1030, Until Discontinued 0959 (Given - Provider: Trish Oconnor RN) 08 (Given - Provider: Ester Jiménez RN) 0929 (Given - Provider: John Vick RN) gabapentin (NEURONTIN) capsule 300 mg, Oral, 3 TIMES DAILY, First dose on Sun08/03/23 at 1630, Until Discontinued 1553 (Given - Provider: Lisset Polanco RN)210 (Given - Provider: Yodit Gracia LPN) 0647 (Given - Provider: Yodit Gracia LPN)1400 (Due)2200 (Due) guaifenesin (MUCINEX) 600 MG 12 hour tablet 1,200 mg, Oral, 2 TIMES DAILY, First dose on Sun08/02/23 at 1030, Until Discontinued 0959 (Given - Provider: Trish Oconnor RN)2110 (Given - Provider: Yodit Gracia LPN) 810 (Given - Provider: Ester Jiménez RN)2102 (Given - Provider: Yodit Gracia LPN) 929 (Given - Provider: John Vick RN)2099 (Due) levETIRAcetam (KEPPRA) tablet 750 mg 750 mg, Oral, 2 TIMES DAILY, 8 doses, First dose (after last modification) on Sun08/01/23 at 2100, Last dose on Sun08/05/23 at 0900 0959 (Given - Provider: Trish Oconnor RN)2110 (Given - Provider: Yodit Gracia LPN) 810 (Given - Provider: Ester Jiménez RN)2102 (Given - Provider: Yodit Gracia LPN) 929 (Given - Provider: John Vick RN)2099 (Due) losartan (COZAAR) tablet 50 mg, Oral, DAILY, First dose on Sun08/02/23 at 1030, Until Discontinued 103 (Hold/Not Given - Provider: Trish Oconnor RN - Reason: Not indicated) 810 (Given - Provider: Ester Jiménez RN) 929 (Given - Provider: John Vick RN) magnesium oxide (MAG-OX) 400 mg (240 mg) tablet 400 mg, Oral, DAILY, First dose on Angely 08/02/23 at 1030, Until Discontinued 958 (Given - Provider: Trish Oconnor RN) 810 (Given - Provider: Ester Jiménez RN) 929 (Given - Provider: John Vick RN) melatonin tablet 3 mg, Oral, AT BEDTIME, First dose on Sun07/31/23 at 2200, Until Discontinued 2110 (Given - Provider: Yodit Gracia LPN) 2102 (Given - Provider: Yodit Gracia LPN) 2199 (Due) metoprolol (LOPRESSOR) split tablet 12.5 mg, Oral, 2 TIMES DAILY, First dose on Sun07/30/23 at 1630, Until Discontinued 958 (Given - Provider: Trish Oconnor RN)2110 (Given - Provider: Yodit Gracia LPN - Comment: BP 148/71 MAP 95; HR 86) 08 (Given - Provider: Ester Jiménez RN)2102 (Given - Provider: Yodit Gracia LPN - Comment: BP 136/63 MAP 81; HR 74) 0931 (Given - Provider: John Vick RN)2099 (Due) polyethylene glycol (MIRALAX) 17 g packet 17 g, Oral, DAILY, First dose on Sun07/31/23 at 0900, Until Discontinued 958 (Given - Provider: Trish Oconnor RN) 08 (Given - Provider: Ester Jiménez RN) 927 (Given - Provider: John Vick RN) senna (SENOKOT) tablet 8.6 mg, Oral, AT BEDTIME, First dose on Sun07/29/23 at 2200, Until Discontinued 2110 (Given - Provider: Yodit Gracia LPN) 2051 (Hold/Not Given - Provider: Yodit Gracia LPN - Reason: Patient refused - Comment: pt states she has been having regular bowel movements) 2199 (Due) sertraline (ZOLOFT) tablet (CANCELED) 25 mg, Oral, DAILY, First dose on Sun08/02/23 at 1030, Until Discontinued 958 (Given - Provider: Trish Oconnor RN) 810 (Hold/Not Given - Provider: Ester Jiménez RN - Reason: Patient refused) PRN Medication Order 08/02/2023 08/03/2023 08/04/2023 albuterol (PROVENTIL HFA) 108 (90 Base) MCG/ACT HFA inhaler 1 Puff, Inhalation, EVERY 4 HOURS PRN, Starting on Angely 08/02/23 at 0941, Until Discontinued, Shortness of Breath, Wheezing 0615 (Given - Provider: Aniket Hines, RT) bisacodyl (DULCOLAX) 10 MG suppository 10 mg, Rectal, DAILY PRN, Starting on Sun07/29/23 at 1647, Until Discontinued, Constipation LORazepam (ATIVAN) tablet 1 mg, Oral, EVERY 8 HOURS PRN, Starting on Sun07/30/23 at 2036, Until Discontinued, Anxiety magnesium hydroxide (MILK OF MAGNESIA) 400 MG/5ML oral suspension 30 mL, Oral, DAILY PRN, Starting on Sun08/01/23 at 1104, Until Discontinued, Constipation oxyCODONE (ROXICODONE) 5 mg/5 mL oral solution 2.5 mg, Oral, EVERY 4 HOURS PRN, Starting on Sun07/29/23 at 1647, Until Discontinued, Moderate Pain (pain score 4,5,6) oxyCODONE immediate release tablet 5 mg, Oral, EVERY 4 HOURS PRN, Starting on 07/29/23 at 1647, Until Discontinued, Severe Pain (pain score 7,8,9,10) Scheduled Medication Order 08/22/2023 08/23/2023 08/24/2023 acetaminophen (TYLENOL) tablet 650 mg, Oral, Every 6 hours, First dose (after last modification) on Sun08/17/23 at 1130, Until Discontinued 0025 (Given - Provider: Jana Carreon RN)0629 (Given - Provider: Jana Carreon RN)1159 (Given - Provider: Isaura Black RN)1716 (Given - Provider: Isaura Black RN)2302 (Given - Provider: aMrisol Britton RN) 0553 (Given - Provider: Marisol Britton RN)1153 (Given - Provider: Vickie Goff RN)1730 (Given - Provider: Vickie Goff RN)2316 (Given - Provider: Shital Rodrigez LPN) 0543 (Given - Provider: Shital Rodrigez LPN)1321 (Given - Provider: Alberto Philip RN)1730 (Due)2330 (Due) amantadine (SYMMETREL) 50 MG/5ML oral syrup 100 mg, NG Tube, 2 TIMES DAILY, First dose on Angely 08/23/23 at 2230, Until Discontinued 2316 (Given - Provider: Shital Rodrigez LPN) 1054 (Given - Provider: Alberto Philip RN)2100 (Due) amantadine (SYMMETREL) capsule (CANCELED) 100 mg, Oral, 2 TIMES DAILY, First dose on Sun08/18/23 at 2000, Until Discontinued 0831 (Given - Provider: Isaura Black RN)2302 (Given - Provider: Marisol Britton RN) 0943 (Given - Provider: Vickie Goff RN)2100 (Hold/Not Given - Provider: Shital Rodrigez LPN - Reason: Not indicated) atorvastatin (LIPITOR) tablet 40 mg, Oral, AT BEDTIME, First dose on Sun08/13/23 at 2200, Until Discontinued 2302 (Given - Provider: Marisol Britton RN) 212 (Given - Provider: Shital Rodrigez LPN) 2200 (Due) chlorhexidine (PERIDEX) 0.12 % oral solution 15 mL, Swish & Spit, 2 TIMES DAILY, First dose on Sun08/17/23 at 1600, Until Discontinued 0832 (Given - Provider: Isaura Black RN)230 (Given - Provider: Marisol Britton RN) 0945 (Given - Provider: Vickie Goff RN)213 (Given - Provider: Shital Rodrigez LPN) 110 (Given - Provider: Alberto Philip RN)2100 (Due) doxazosin (CARDURA) tablet 4 mg, Oral, DAILY, First dose on Sun08/16/23 at 1430, Until Discontinued 0831 (Given - Provider: Isaura Black RN) 0943 (Given - Provider: Vickie Goff RN) 1054 (Given - Provider: Alberto Philip, RN) folic acid 1 MG tablet 1 mg, Oral, DAILY, 3 doses, First dose on Sun08/24/23 at 0900, Last dose on Sun08/26/23 at 0900 1054 (Given - Provider: Alberto Philip, RN) heparin (porcine) 5000 UNIT/0.5ML injection 5,000 Units, Subcutaneous, EVERY 8 HOURS, First dose on Sun08/17/23 at 1130, Until Discontinued 0430 (Given - Provider: Jana Carreon RN)1159 (Given - Provider: Isaura Black RN)230 (Given - Provider: Marisol Britton RN) 0943 (Given - Provider: Vickie Goff RN)1730 (Given - Provider: Vickie Goff RN) 0150 (Given - Provider: Shital Rodrigez LPN)1054 (Given - Provider: Alberto Philip RN)1730 (Due - Provider: Deborah Rodriguez, [facility]) levETIRAcetam (KEPPRA) 100 MG/ML oral solution 500 mg, Oral, 2 TIMES DAILY, First dose on Sun08/19/23 at 0330, Until Discontinued 830 (Given - Provider: Isaura Black RN)230 (Given - Provider: Marisol Britton RN) 0943 (Given - Provider: Vickie Goff, CARLOS)2120 (Given - Provider: Shital Rodrigez LPN) 1054 (Given - Provider: Alberto Philip, CARLOS)2100 (Due) lisinopril (ZESTRIL) tablet 5 mg, Oral, DAILY, First dose (after last modification) on Sun08/17/23 at 0900, Until Discontinued 830 (Given - Provider: Isaura Black RN) 09 (Given - Provider: Vickie Goff RN) 105 (Given - Provider: Alberto Philip, RN) losartan (COZAAR) tablet 50 mg, Oral, DAILY, First dose (after last modification) on Sun08/14/23 at 1700, Until Discontinued 830 (Given - Provider: Isaura Black RN) 09 (Given - Provider: Vickie Goff RN) 105 (Given - Provider: Alberto Philip, RN) magnesium sulfate 2 GM/50ML in 50 mL ivpb (COMPLETED) 2 g (2,000 mg), Intravenous, ONCE, 1 dose, On Sun08/22/23 at 1900 1951 (IV New Bag - Provider: Isaura Black RN) multivitamins with minerals (CEROVITE) oral liquid 15 mL, NG Tube, DAILY, First dose on Sun08/16/23 at 1430, Until Discontinued 830 (Given - Provider: Isaura Black RN) 09 (Given - Provider: Vickie Goff, CARLOS) 105 (Given - Provider: Alberto Philip, RN) polyethylene glycol (MIRALAX) 17 g packet 17 g, Oral, DAILY, First dose on Sun08/16/23 at 1430, Until Discontinued 830 (Given - Provider: Isaura Black RN) 0900 (Hold/Not Given - Provider: Vickie Goff RN - Reason: Not indicated) 1046 (Hold/Not Given - Provider: Alberto Philip, CARLOS - Reason: Not indicated) senna (SENOKOT) tablet 8.6 mg, Oral, AT BEDTIME, First dose on Sun08/13/23 at 2200, Until Discontinued 1999 (Hold/Not Given - Provider: Marisol Britton RN - Reason: Not indicated)2301 (Given - Provider: Marisol Britton RN) 2120 (Given - Provider: Shital Rodrigez LPN) 2199 (Due) Continuous Medication Order 08/22/2023 08/23/2023 08/24/2023 TUBE FEED (CANCELED) NG Tube, at 15-45 mL/hr, CONTINUOUS, Starting on Angely 08/23/23 at 2200, Until Sun08/24/23 at 1237, Tube Feeding: No Meal Tray, Tube feeding formula: Nutren 1.5, Method of Administration? Pump 2200 (Feeding Start - Provider: Shital Rodrigez LPN) TUBE FEED NG Tube, at 15-45 mL/hr, CONTINUOUS, Starting on Sun08/24/23 at 1330, Until Discontinued, Tube Feeding: With Meal Tray, Specify Diet: Regular, Tube feeding formula: Nutren 1.5, Method of Administration? Pump 1330 (Feeding Start - Provider: Alberto Philip RN) PRN Medication Order 08/22/2023 08/23/2023 08/24/2023 albuterol (PROVENTIL HFA) 108 (90 Base) MCG/ACT HFA inhaler 2 Puff, Inhalation, EVERY 4 HOURS PRN, Starting on Sun08/13/23 at 0211, Until Discontinued, Shortness of Breath, Wheezing bisacodyl (DULCOLAX) 5 MG enteric coated tablet 10 mg, Oral, DAILY PRN, Starting on Sun08/13/23 at 0206, Until Discontinued, Constipation FOR RECORDS PERTAINING TO PATIENTS WHO ARE OR HAVE BEEN ENROLLED IN A CHEMICAL DEPENDENCY/SUBSTANCEABUSE PROGRAM, SOME INFORMATION MAY BE OMITTED. This clinical summary was aggregated from multiple sources. Caution should be exercised in using it in the provision of clinical care. This summary normalizes information from multiple sources, and as a consequence, information in this document may materially change the coding, format and clinical context of patient data. In addition, data may be omitted in some cases. CLINICAL DECISIONS SHOULD BE BASED ON THE PRIMARY CLINICAL RECORDS. [facility] [employer] provides no warranty or guarantee of the accuracy or completeness of information in this document.
--- NOTE | 2023-09-08 07:40 | ED.CHESTPAI1 ---
HPI - Chest Pain General Chief Complaint: Chest Pain Stated Complaint: HYPERTENSION Time Seen by Provider: 09/08/23 07:33 Source: patient Mode of arrival: ambulance Limitations: no limitations History of Present Illness HPI narrative: 83-year-old female presents for jaw and chest pain. It started she states at 7:00 this morning. The chest pain is now gone and the jaw pain is almost gone. She appears to have a history of heart disease and she has not taken any of her medications today. A few weeks ago she had craniotomy for subdural hematoma and she comes in from an [facility]. She describes the chest pain as a pressure. Related Data Home Medications ?Medication ?Instructions ?Recorded ?Confirmed alprazolam 0.25 mg tablet 0.5 mg PO BID PRN anxiety 09/08/23 09/08/23 atorvastatin 10 mg tablet 10 mg PO QPM 09/08/23 09/08/23 calcium carbonate (Oyster Shell 500 mg PO DAILY 09/08/23 09/08/23 Calcium) cetirizine 10 mg tablet (24Hour 10 mg PO DAILY 09/08/23 09/08/23 Allergy) coenzyme Q10 10 mg capsule (Co 10 mg PO TID 09/08/23 09/08/23 Q-10) cyanocobalamin (vitamin B-12) 1,000 mcg PO DAILY 09/08/23 09/08/23 1,000 mcg capsule docusate sodium 100 mg capsule 100 mg PO BID 09/08/23 09/08/23 (Col-Rite) enoxaparin 30 mg/0.3 mL 30 mg subcut Q12H 09/08/23 09/08/23 subcutaneous syringe ferrous sulfate 325 mg (65 mg 325 mg PO DAILY 09/08/23 09/08/23 iron) tablet (FeroSul) gabapentin 300 mg capsule 300 mg PO Q8H 09/08/23 09/08/23 levetiracetam 500 mg tablet 750 mg PO Q12H 09/08/23 09/08/23 lisinopril 5 mg tablet 2.5 mg PO BEDTIME 09/08/23 09/08/23 losartan 50 mg tablet 50 mg PO DAILY 09/08/23 09/08/23 magnesium 200 mg tablet 400 mg PO DAILY 09/08/23 09/08/23 melatonin 3 mg capsule 3 mg PO BEDTIME 09/08/23 09/08/23 metoprolol tartrate 50 mg tablet 50 mg PO BID 09/08/23 09/08/23 (Lopressor) montelukast 10 mg tablet 10 mg PO DAILY 09/08/23 09/08/23 omega 8-nsh-xdh-fish oil 1,000 mg 1 cap PO DAILY 09/08/23 09/08/23 (120 mg-180 mg) capsule (Fish Oil) pravastatin 20 mg tablet 40 mg PO BEDTIME 09/08/23 09/08/23 prednisolone 5 mg tablet 20 mg PO DAILY 09/08/23 09/08/23 Allergies Allergy/AdvReac Type Severity Reaction Status Date / Time alcohol AdvReac Mild Verified 09/08/23 07:58 [From Mastisol Adhesive] amlodipine AdvReac Mild Verified 09/08/23 07:58 carbamazepine AdvReac Mild Verified 09/08/23 07:58 divalproex sodium AdvReac Mild Verified 09/08/23 07:58 [From Depakote] gum mastic AdvReac Mild Verified 09/08/23 07:58 [From Mastisol Adhesive] Hydantoins AdvReac Mild Verified 09/08/23 07:58 hydrochlorothiazide AdvReac Mild Verified 09/08/23 07:58 labetalol AdvReac Mild Verified 09/08/23 07:58 methyl salicylate AdvReac Mild Verified 09/08/23 07:58 [From Mastisol Adhesive] mometasone furoate AdvReac Mild Verified 09/08/23 07:58 nifedipine AdvReac Mild Verified 09/08/23 07:58 nitrofurantoin AdvReac Mild Verified 09/08/23 07:58 phenytoin [From Dilantin] AdvReac Mild Verified 09/08/23 07:58 sertraline AdvReac Mild Verified 09/08/23 07:58 storax AdvReac Mild Verified 09/08/23 07:58 [From Mastisol Adhesive] valproic acid AdvReac Mild Verified 09/08/23 07:58 Review of Systems ROS Narrative A ten point review of systems is negative except as noted above. Exam Narrative Exam Narrative: Nurses note and vital signs reviewed and patient is not hypoxic. General: The patient appears well and in no apparent distress. Patient is resting comfortably on cart. Skin: Warm, dry, no pallor noted. There is no rash noted. Head: Normocephalic, craniotomy site is healing well, left side Eye: Normal conjunctiva, no drainage Ears, Nose, Mouth, and Throat: oral mucosa is moist. Nares patent. Cardiovascular: Regular Rate and Rhythm Respiratory: Patient is in no distress, no accessory muscle use, lungs are clear to auscultation, no wheezing, rales or rhonchi Back: non-tender GI: Soft and nontender Musculoskeletal: The patient has no evidence of calf tenderness, no pitting edema, symmetrical pulses noted bilaterally Neurological: A&O x4, normal speech Psychiatric: Cooperative Constitutional Vital Signs, click to edit/add: Last Vital Signs Temp 98.4 F 09/08/23 07:27 Pulse 64 09/08/23 09:00 Resp 12 09/08/23 09:00 BP 150/62 H 09/08/23 09:00 Pulse Ox 98 09/08/23 07:27 O2 Del Method Room Air 09/08/23 07:27 Course Vital Signs Vital signs: Vital Signs Temperature 98.4 F 09/08/23 07:27 Pulse Rate 80 09/08/23 07:27 Respiratory Rate 18 09/08/23 07:27 Blood Pressure 180/92 H 09/08/23 07:27 Pulse Oximetry 98 09/08/23 07:27 Oxygen Delivery Method Room Air 09/08/23 07:27 Temperature 98.4 F 09/08/23 07:27 Pulse Rate 64 09/08/23 09:00 Respiratory Rate 12 09/08/23 09:00 Blood Pressure 150/62 H 09/08/23 09:00 Pulse Oximetry 98 09/08/23 07:27 Oxygen Delivery Method Room Air 09/08/23 07:27 MDM - Chest Pain MDM Narrative Medical decision making narrative: Her symptoms have resolved completely and 2 sets of troponin are negative. At this point I do not suspect acute coronary syndrome and she is going to be released back to [facility]. Findings are discussed with the patient thoroughly and we are communicating with her doctor as well. No evidence of NH or pneumonia. Differential Diagnosis Differential diagnosis: Likely pneumothorax, stable angina, unstable angina pectoris, atypical chest pain, st elevation myocardial infarction and chest pain Lab Data Attestation: I reviewed the patient's lab results. Labs: Lab Results 09/08/23 09/08/23 09/08/23 Range/Units 07:54 08:06 08:41 WBC 7.7 (4.0-11.0) 10^3/uL RBC 3.52 L (4.20-5.40) 10^6/uL Hgb 10.2 L (12.0-16.0) g/dL Hct 33.7 L (36.0-48.0) % MCV 95.7 (81.0-99.0) fL MCH 29.0 (26.7-34.0) pg MCHC 30.3 (29.9-35.2) g/dL RDW 15.0 (11.0-15.0) % Plt Count 242 (150-450) 10^3/uL MPV 8.6 L (9.5-13.5) fL Neut % (Auto) 77.6 H (43.0-75.0) % Lymph % (Auto) 11.2 L (20.5-60.0) % [place] % (Auto) 8.4 (1.7-12.0) % Eos % (Auto) 1.7 (0.9-7.0) % Baso % (Auto) 0.1 L (0.2-2.0) % Neut # (Auto) 5.9 (1.4-6.5) 10^3/uL Lymph # (Auto) 0.9 L (1.2-3.8) 10^3/uL [place] # (Auto) 0.6 (0.3-0.8) 10^3/uL Eos # (Auto) 0.1 (0.0-0.7) 10^3/uL Baso # (Auto) 0.0 (0.0-0.1) 10^3/uL Abs Immat Gran (auto) 0.08 H (0.00-0.03) 10^3/uL Imm/Tot Granulo (auto) 1.0 H (0.0-0.5) % Sodium 137 (136-145) mmol/L Potassium 4.1 (3.5-5.1) mmol/L Chloride 101 (98-107) mmol/L Carbon Dioxide 30.6 (21.0-32.0) mmol/L Anion Gap 9.5 BUN 14.0 (7.0-18.0) mg/dL Creatinine 0.73 (0.55-1.02) mg/dL Est GFR ( Amer) >60 (>=60) Est GFR (Non-Af Amer) >60 (>=60) BUN/Creatinine Ratio 19.2 Glucose 106 (74-106) mg/dL Calcium 9.0 (8.5-10.1) mg/dL Troponin I High Sens 11.2 11.0 (4.0-51.3) pg/mL SARS-CoV-2 Ag (CV2AG) Negative (NEGATIVE) Imaging Data Chest x-ray: Radiologist's impression: ITS Impressions Chest X-Ray 09/08/23 07:39 IMPRESSION: Mild cardiomegaly. Mild left basal atelectasis. Electronically authenticated by: AYUSH RUSSO Date: 09/08/2023 08:54 ECG Data Attestation: I personally reviewed and interpreted this ECG as follows: (EKG on my interpretation shows normal sinus rhythm with rate of 69 and no acute change.) Heart Score History: Moderately Suspicious ECG: Normal Age: >65 years Risk Factors: >3 Risk Factors/ HX of CAD:2 Troponin: <Normal Limit Total Heart Score Recommendations & Risks:: 5 Discharge Plan Discharge Stand Alone Forms: Portal Instructions Chief Complaint: Chest Pain Clinical Impression: Chest pain Patient Disposition: Home, Self-Care Time of Disposition Decision: 09:40 Condition: Good Mode of Transportation: Private Vehicle Prescriptions / Home Meds: No Action alprazolam 0.25 mg tablet 0.5 mg PO BID PRN (Reason: anxiety) calcium carbonate [Oyster Shell Calcium] 500 mg calcium (1,250 mg) tablet 500 mg PO DAILY cetirizine [24Hour Allergy] 10 mg tablet 10 mg PO DAILY coenzyme Q10 [Co Q-10] 10 mg capsule 10 mg PO TID docusate sodium [Col-Rite] 100 mg capsule 100 mg PO BID cyanocobalamin (vitamin B-12) 1,000 mcg capsule 1,000 mcg PO DAILY ferrous sulfate [FeroSul] 325 mg (65 mg iron) tablet 325 mg PO DAILY omega 5-dhz-nbs-fish oil [Fish Oil] 1,000 mg (120 mg-180 mg) capsule 1 cap PO DAILY gabapentin 300 mg capsule 300 mg PO Q8H lisinopril 5 mg tablet 2.5 mg PO BEDTIME magnesium 200 mg tablet 400 mg PO DAILY melatonin 3 mg capsule 3 mg PO BEDTIME metoprolol tartrate [Lopressor] 50 mg tablet 50 mg PO BID montelukast 10 mg tablet 10 mg PO DAILY pravastatin 20 mg tablet 40 mg PO BEDTIME atorvastatin 10 mg tablet 10 mg PO QPM enoxaparin 30 mg/0.3 mL syringe 30 mg subcut Q12H levetiracetam 500 mg tablet 750 mg PO Q12H losartan 50 mg tablet 50 mg PO DAILY prednisolone 5 mg tablet 20 mg PO DAILY Print Language: Bolivian Instructions: Chest Pain (ED) Referrals: HARDEEP SUÁREZ [Primary Care Provider] - 1 week
[2023-09-08 08:00] LABS: Basophils Percent Auto 0.1 % (0.2-2.0); Eosinophils Absolute Auto 0.1 10^3/uL (0.0-0.7); Eosinophils Percent Auto 1.7 % (0.9-7.0); Hematocrit 33.7 % (36.0-48.0); Hemoglobin 10.2 g/dL (12.0-16.0); Immature Granulocytes Abs Auto 0.08 10^3/uL (0.00-0.03); Lymphocytes Absolute Auto 0.9 10^3/uL (1.2-3.8); Lymphocytes Percent Auto 11.2 % (20.5-60.0); Mean Corpuscular HGB Conc 30.3 g/dL (29.9-35.2); Mean Corpuscular Volume 95.7 fL (81.0-99.0); Mean Platelet Volume 8.6 fL (9.5-13.5); Monocytes Absolute Auto 0.6 10^3/uL (0.3-0.8); Monocytes Percent Auto 8.4 % (1.7-12.0); Neutrophils Absolute Auto 5.9 10^3/uL (1.4-6.5); Neutrophils Percent Auto 77.6 % (43.0-75.0); Platelet Count 242 10^3/uL (150-450); Red Blood Count 3.52 10^6/uL (4.20-5.40); White Blood Count 7.7 10^3/uL (4.0-11.0)
[2023-09-08 08:22] LABS: Anion Gap 9.5; BUN Creatinine Ratio 19.2; Carbon Dioxide 30.6 mmol/L (21.0-32.0); Chloride 101 mmol/L (98-107); Estimated GFR (African America >60 (>=60); Estimated GFR (Non-African Ame >60 (>=60); Glucose 106 mg/dL (74-106); Potassium 4.1 mmol/L (3.5-5.1); Sodium 137 mmol/L (136-145); Troponin I High Sensitivity 11.2 pg/mL (4.0-51.3)
[2023-09-08] MEDS: METOPROLOL TARTRATE 50 MG TABLET PO (08:31)
[2023-09-08] MEDS: LOSARTAN POTASSIUM 50 MG TABLET PO (08:31)
[2023-09-08 08:46] LABS: Internal Control Within Normal Limits
[2023-09-08 08:51] LABS: SARS-CoV-2 Ag NEGATIVE (NEGATIVE)
== END 2023-09-08 11:31 | disposition home or self-care (01) ==
PROVIDERS: Emergency Provider Emergency Medicine; PCP Family Medicine
DX: R07.9 Chest pain, unspecified (principal); Z98.890 Other specified postprocedural states; Z20.822 Contact with and (suspected) exposure to COVID-19
CPT/HCPCS: 36415; 71045; 80048; 84484; 85025; 87811; 93005; 99285

== ENCOUNTER 2023-12-19 15:03 | Outpatient (OUT) | payer MEDICARE, SELFPAY ==
--- NOTE | 2023-12-20 07:54 | P.CN_ITS ---
Consult Note: HPI Data of Consult Patient: known to practice within the last 3 years Requesting Physician: Zuleima Valdivia NP Primary Care Provider: HARDEEP SUÁREZ Consult Narrative Reason for consult: re-establish chronic low back pain Narrative: Carly Marcelino a pleasant 83 year old female presents for evaluation and management of severe low back pain. pt has a longstanding hx of low back pain, previous lumbar surgery per pt but known type, and recently engaged in PT greater than 6 weeks without benefit. no recent imaging available to review. Low back pain 9/10 with weakness and pain in RLE. Pain is constant and difficult to describe per pt. denies loss of bowel/bladder. utilizes walker, has had 2+ falls in the last 12 months and attended PT. hx of T12 compression fx. pt currently on baclofen 5mg PRN, tramadol 50-100mg TID PRN, gabapentin 300mg TID, and tylenol 325-650mg PRN. Avoids NSAIDs. cc:: CC: Zuleima Valdivia NP Review of Systems ROS Status of ROS 10 or more systems reviewed and unremark able except as noted in history and below Musculoskeletal Reports: back pain and joint pain Meds Home Medications and Allergies Home Medications ?Medication ?Instructions ?Recorded ?Confirmed ?Type alprazolam 0.25 mg tablet 0.5 mg PO BID PRN anxiety 09/08/23 09/08/23 History atorvastatin 10 mg tablet 10 mg PO QPM 09/08/23 09/08/23 History calcium carbonate (Oyster Shell 500 mg PO DAILY 09/08/23 09/08/23 History Calcium) cetirizine 10 mg tablet (24Hour 10 mg PO DAILY 09/08/23 09/08/23 History Allergy) coenzyme Q10 10 mg capsule (Co 10 mg PO TID 09/08/23 09/08/23 History Q-10) cyanocobalamin (vitamin B-12) 1,000 mcg PO DAILY 09/08/23 09/08/23 History 1,000 mcg capsule docusate sodium 100 mg capsule 100 mg PO BID 09/08/23 09/08/23 History (Col-Rite) enoxaparin 30 mg/0.3 mL 30 mg subcut Q12H 09/08/23 09/08/23 History subcutaneous syringe ferrous sulfate 325 mg (65 mg 325 mg PO DAILY 09/08/23 09/08/23 History iron) tablet (FeroSul) gabapentin 300 mg capsule 300 mg PO Q8H 09/08/23 09/08/23 History levetiracetam 500 mg tablet 750 mg PO Q12H 09/08/23 09/08/23 History lisinopril 5 mg tablet 2.5 mg PO BEDTIME 09/08/23 09/08/23 History losartan 50 mg tablet 50 mg PO DAILY 09/08/23 09/08/23 History magnesium 200 mg tablet 400 mg PO DAILY 09/08/23 09/08/23 History melatonin 3 mg capsule 3 mg PO BEDTIME 09/08/23 09/08/23 History metoprolol tartrate 50 mg tablet 50 mg PO BID 09/08/23 09/08/23 History (Lopressor) montelukast 10 mg tablet 10 mg PO DAILY 09/08/23 09/08/23 History omega 4-qcx-eds-fish oil 1,000 mg 1 cap PO DAILY 09/08/23 09/08/23 History (120 mg-180 mg) capsule (Fish Oil) pravastatin 20 mg tablet 40 mg PO BEDTIME 09/08/23 09/08/23 History prednisolone 5 mg tablet 20 mg PO DAILY 09/08/23 09/08/23 History Allergies Allergy/AdvReac Type Severity Reaction Status Date / Time alcohol (From Mastisol AdvReac Mild Verified 09/08/23 07:58 Adhesive) amlodipine AdvReac Mild Verified 09/08/23 07:58 carbamazepine AdvReac Mild Verified 09/08/23 07:58 divalproex sodium (From AdvReac Mild Verified 09/08/23 07:58 Depakote) gum mastic (From Mastisol AdvReac Mild Verified 09/08/23 07:58 Adhesive) Hydantoins AdvReac Mild Verified 09/08/23 07:58 hydrochlorothiazide AdvReac Mild Verified 09/08/23 07:58 labetalol AdvReac Mild Verified 09/08/23 07:58 methyl salicylate (From AdvReac Mild Verified 09/08/23 07:58 Mastisol Adhesive) mometasone furoate AdvReac Mild Verified 09/08/23 07:58 nifedipine AdvReac Mild Verified 09/08/23 07:58 nitrofurantoin AdvReac Mild Verified 06/29/24 07:58 phenytoin (From Dilantin) AdvReac Mild Verified 09/08/23 07:58 sertraline AdvReac Mild Verified 09/08/23 07:58 storax (From Mastisol AdvReac Mild Verified 09/08/23 07:58 Adhesive) valproic acid AdvReac Mild Verified 09/08/23 07:58 Exam Constitutional Documenting provider has reviewed patient's vital signs: yes Common normals: no apparent distress, oriented x3, healthy appearing, alert and well nourished General appearance: cooperative HENMT Common normals: normocephalic, hearing grossly normal bilaterally and moist oral mucous membranes Head and scalp: normocephalic Eye Common normals: PERRL Pupil: PERRL Neck & C-Spine Common normals: full ROM General: normal visual inspection Chest Common normals: inspection of chest normal Respiratory Common normals: normal respiratory effort, no retractions and no use of accessory muscles Back & Pelvis Lumbar spine/lower back: ROM limited, pain with ROM, lumbar spinal tenderness, paraspinal muscle tenderness and straight leg raise positive right; no paraspinal muscle spasm Sacroiliac joints: SI joint(s) abnormal Other: bilateral sij positive awilda(patricks), gaenslens, thigh thrust, compression test right >left strength 3.5/5 in RLE, 5/5 in LLE altered sensation to RLE following L4,5,S1 pattern Extremity Common normals: normal to inspection and full ROM Neuro Common normals: oriented x3, CN's II-XII intact bilaterally, moves all extremities, no focal motor deficits, no sensory deficits noted and deep tendon reflexes 2+ bilaterally Sensorium/orientation: alert Gait (neuro): assistive device used walker Motor exam: no movement abnormalities noted and strength abnormal Psych Common normals: mental status grossly normal, thought process normal, cooperative, affect normal, speech normal and activity/motor behavior normal Speech: normal speech Thought process: normal thought process Results Additional Findings Additional findings: If on a controlled substance or opioids, I have checked an [place] report on this patient and there are no aberrancies noted in the prescribing history.??If on a controlled substance or opioid a drug screen was completed and reviewed within the last year, and if there has not been a drug screen completed we ordered one today to monitor higher risk, state monitored pain medication use. As part of providing excellent, safe, comprehensive care, the following was completed at our patient's visit: 1. A medication reconciliation and review to ensure accurate knowledge of current/active medications, including asking our patients to inform us about any hvbh-ped-zswvlav medications or herbal remedies/nutritional supplements/alternative remedies. 2. A review to specifically ensure our patients have had annual screening for screening for depression, screening for tobacco use, and screening for unhealthy alcohol use. For concerning screenings had a discussion with the patient, provided patient education, and recommended follow-up with primary care provider when appropriate. If patient noted with a risk of falling, they received education on strength, gait, and balance training to prevent future risk of falling. Assessment and Plan Assessment and Plan (1) Sacroiliac joint dysfunction: (2) Lumbar degenerative disc disease: (3) Lumbar radiculopathy: (4) Failed back syndrome: (5) Lumbar stenosis with neurogenic claudication: Plan at this time patient is not interested in medication management, would like to continue on her current regimen through PCP. Patient is very hesitant to have an MRI completed, she is agreeable to completing a lumbosacral xray with flexion. based on physical exam findings of sacroiliac joint dysfunction I would recommend a right SIJ injection as this is her primary pain generator. f/u 1-2 weeks after injection.
== END 2023-12-19 15:04 | disposition home or self-care (01) ==
LOC: PM 15:03
PROVIDERS: PCP Family Medicine; Visit Provider Nurse Practitioner
DX: M48.062 Spinal stenosis, lumbar region with neurogenic claudication (principal); M47.816 Spondylosis without myelopathy or radiculopathy, lumbar region; S22.089A Unspecified fracture of T11-T12 vertebra, initial encounter for closed fracture; M51.16 Intervertebral disc disorders with radiculopathy, lumbar region; M53.3 Sacrococcygeal disorders, not elsewhere classified; M96.1 Postlaminectomy syndrome, not elsewhere classified
CPT/HCPCS: 72114; G0463

== ENCOUNTER 2023-12-19 16:03 | Outpatient (OUT) | payer MEDICARE, SELFPAY ==
--- NOTE | 2023-12-19 | XR_ITS ---
[place] [id number] Patient Name: SANDRINE ROBERT MRN: [id number] date: 1940 Sex: F Assigned Patient Location: [facility] Current Patient Location: [facility] Accession/Order Number: [id number] Exam Date: 12/19/2023 16:30 Report Date: 12/20/2023 11:01 At the request of: JENNIFER MAYNARD Procedure: XR lumbar spine 6V w bending EXAMINATION: XR lumbar spine 6V w bending HISTORY: Lumbar Stenosis COMPARISON: No relevant comparison available. FINDINGS: BONES: Grade 1 anterior listhesis of L4 on 5. Grade 1 retrolisthesis of L1 on 2. Moderate compression fracture of T12. Moderate degenerative facet arthropathy L3-4 through L5-S1. DISC SPACES: Marked narrowing L4-5. Moderate narrowing L3-4 and L5-S1. Mild narrowing at remaining levels. PARASPINOUS: Marked atherosclerotic disease of aorta; no appreciable aneurysm. OTHER: Negative. XR/XR lumbar spine 6V w bending IMPRESSION: 1. Marked degenerative changes of lumbar spine. 2. Age indeterminate moderate compression fracture of T12. No comparison studies. Appearance suggests subacute chronic. Electronically authenticated by: RUFINO MAY Date: 12/20/2023 11:01
== END 2023-12-19 16:04 | disposition home or self-care (01) ==
PROVIDERS: PCP Family Medicine; Visit Provider Nurse Practitioner
DX: M48.062 Spinal stenosis, lumbar region with neurogenic claudication (principal); M47.816 Spondylosis without myelopathy or radiculopathy, lumbar region; S22.089A Unspecified fracture of T11-T12 vertebra, initial encounter for closed fracture
CPT/HCPCS: 72114

== ENCOUNTER 2023-12-31 09:15 | Day surgery (SDC) | payer MEDICARE, SELFPAY ==
[2023-12-31 09:37] VITALS: BP 193/91; PULSE 58; TEMP 36.1; O2SAT 94
[2023-12-31] MEDS: IOHEXOL 240 MG/ML - 10 ML VIAL INJ (10:19)
[2023-12-31] MEDS: TRIAMCINOLONE ACETONIDE 40 MG/ML VIAL INJ (10:19)
[2023-12-31] MEDS: BUPIVACAINE HCL 0.25% PF 25 MG/10 ML VIAL 2 ML INJ (10:19)
[2023-12-31] MEDS: LIDOCAINE HCL 2% 400 MG/20 ML MDV INJ (10:19)
--- NOTE | 2023-12-31 10:21 | W.PM.PROCNOT ---
Date of procedure: 12/31/23 Pre-op diagnosis: Pain due to right sacroiliitis Post-op diagnosis: same as pre-op Procedure: Procedure: Right sacroiliac joint injection Medications: Bupivacaine 0.25% 3cc, kenalog 40mg After informed consent was obtained, the patient was brought to the medical procedure unit and placed in the prone position, when a timeout was completed verifying correct patient, procedure, site, positioning, implant, and/or special equipment.? The skin overlying the area was prepped and draped in standard sterile fashion using alcohol.? A 25-gauge needle was inserted towards the right sacroiliac joint under direct fluoroscopic imaging.? Needle tip was advanced until the joint was encountered.? We instilled a total of 2 mL of solution.? Postoperatively needles were removed.? The patient tolerated the procedure well without complication.? The patient reported reduction in pain symptoms postoperatively. Anesthesia: Local Surgeon: Anil Man Pathology: none sent Condition: stable Disposition: no change
[2023-12-31 10:22] VITALS: BP 212/99; BP 223/90; PULSE 67; PULSE 68; O2SAT 96
== END 2023-12-31 10:29 | disposition home or self-care (01) ==
LOC: SURGOUT 09:17
PROVIDERS: PCP Family Medicine; Visit Provider Anesthesiology
DX: M46.1 Sacroiliitis, not elsewhere classified (principal)
CPT/HCPCS: 27096; J0665; J3301; Q9966

== ENCOUNTER 2024-01-09 11:06 | Outpatient (OUT) | payer MEDICARE, SELFPAY ==
--- NOTE | 2024-01-09 11:24 | P.CN_ITS ---
Consult Note: HPI Data of Consult Patient: known to practice within the last 3 years Requesting Physician: Zuleima Valdivia NP Primary Care Provider: HARDEEP SUÁREZ Consult Narrative Reason for consult: re-establish chronic low back pain Narrative: Carly Marcelino a pleasant 83 year old female presents for evaluation and management of severe low back pain. pt has a longstanding hx of low back pain, previous lumbar surgery per pt but known type, and recently engaged in PT greater than 6 weeks without benefit. lumbar xray consistent with multilevel facet arthropathy and DDD.hx of T12 compression fx. pt currently on baclofen 5mg PRN, tramadol 50- 100mg TID PRN, gabapentin 300mg TID, and tylenol 325-650mg PRN. Avoids NSAIDs. Recently underwent right SIJ injection with >50% improvement ongoing. Pain today 0/10 aching in low back, increasing to 7/10 in low back with standing walking leaning lifting twisting, improved with sleep and sitting. no longer experiencing shooting burning radiating pain. cc:: CC: Zuleima Valdivia NP Review of Systems ROS Status of ROS 10 or more systems reviewed and unremark able except as noted in history and below Musculoskeletal Reports: back pain and joint pain [facility] Medical History (Updated 01/09/24 @ 11:47 by Zuleima Valdivia NP) Osteoarthritis ?M19.90 - Unspecified osteoarthritis, unspecified site (ICD-10) Seizure ?R56.9 - Unspecified convulsions (ICD-10) Asthma ?J45.909 - Unspecified asthma, uncomplicated (ICD-10) HTN (hypertension) ?I10 - Essential (primary) hypertension (ICD-10) Surgical History History of foot surgery ?Z98.890 - Other specified postprocedural states (ICD-10) History of total knee arthroplasty ?Z96.659 - Presence of unspecified artificial knee joint (ICD-10) History of tonsillectomy and adenoidectomy ?Z90.89 - Acquired absence of other organs (ICD-10) History of pharyngoplasty ?Z98.890 - Other specified postprocedural states (ICD-10) History of back surgery ?Z98.890 - Other specified postprocedural states (ICD-10) History of breast biopsy ?Z98.890 - Other specified postprocedural states (ICD-10) History of total shoulder replacement ?Z96.619 - Presence of unspecified artificial shoulder joint (ICD-10) Meds Home Medications and Allergies Home Medications ?Medication ?Instructions ?Recorded ?Confirmed ?Type alprazolam 0.25 mg tablet 0.5 mg PO BID PRN anxiety 09/08/23 09/08/23 History atorvastatin 10 mg tablet 10 mg PO QPM 09/08/23 09/08/23 History calcium carbonate (Oyster Shell 500 mg PO DAILY 09/08/23 09/08/23 History Calcium) cetirizine 10 mg tablet (24Hour 10 mg PO DAILY 09/08/23 09/08/23 History Allergy) coenzyme Q10 10 mg capsule (Co 10 mg PO TID 09/08/23 09/08/23 History Q-10) cyanocobalamin (vitamin B-12) 1,000 mcg PO DAILY 09/08/23 09/08/23 History 1,000 mcg capsule docusate sodium 100 mg capsule 100 mg PO BID 09/08/23 09/08/23 History (Col-Rite) enoxaparin 30 mg/0.3 mL 30 mg subcut Q12H 09/08/23 09/08/23 History subcutaneous syringe ferrous sulfate 325 mg (65 mg 325 mg PO DAILY 09/08/23 09/08/23 History iron) tablet (FeroSul) gabapentin 300 mg capsule 300 mg PO Q8H 09/08/23 09/08/23 History levetiracetam 500 mg tablet 750 mg PO Q12H 09/08/23 09/08/23 History lisinopril 5 mg tablet 2.5 mg PO BEDTIME 09/08/23 09/08/23 History losartan 50 mg tablet 50 mg PO DAILY 09/08/23 09/08/23 History magnesium 200 mg tablet 400 mg PO DAILY 09/08/23 09/08/23 History melatonin 3 mg capsule 3 mg PO BEDTIME 09/08/23 09/08/23 History metoprolol tartrate 50 mg tablet 50 mg PO BID 09/08/23 09/08/23 History (Lopressor) montelukast 10 mg tablet 10 mg PO DAILY 09/08/23 09/08/23 History omega 0-ywg-mae-fish oil 1,000 mg 1 cap PO DAILY 09/08/23 09/08/23 History (120 mg-180 mg) capsule (Fish Oil) pravastatin 20 mg tablet 40 mg PO BEDTIME 09/08/23 09/08/23 History prednisolone 5 mg tablet 20 mg PO DAILY 09/08/23 09/08/23 History Allergies Allergy/AdvReac Type Severity Reaction Status Date / Time alcohol (From Mastisol AdvReac Mild RASH Verified 12/31/23 09:48 Adhesive) amlodipine AdvReac Mild UNKNOWN Verified 12/31/23 09:48 carbamazepine AdvReac Mild UNKNOWN Verified 12/31/23 09:48 divalproex sodium (From AdvReac Mild Unknown Verified 12/31/23 09:48 Depakote) gum mastic (From Mastisol AdvReac Mild UNKNOWN Verified 12/31/23 09:48 Adhesive) Hydantoins AdvReac Mild Unknown Verified 12/31/23 09:48 hydrochlorothiazide AdvReac Mild Unknown Verified 12/31/23 09:48 labetalol AdvReac Mild Unknown Verified 12/31/23 09:48 methyl salicylate (From AdvReac Mild Unknown Verified 12/31/23 09:48 Mastisol Adhesive) mometasone furoate AdvReac Mild Unknown Verified 12/31/23 09:48 nifedipine AdvReac Mild Unknown Verified 12/31/23 09:48 nitrofurantoin AdvReac Mild Unknown Verified 12/31/23 09:48 phenytoin (From Dilantin) AdvReac Mild Unknown Verified 12/31/23 09:48 sertraline AdvReac Mild Unknown Verified 12/31/23 09:48 storax (From Mastisol AdvReac Mild Unknown Verified 12/31/23 09:48 Adhesive) valproic acid AdvReac Mild Unknown Verified 12/31/23 09:48 Exam Constitutional Documenting provider has reviewed patient's vital signs: yes Common normals: no apparent distress, oriented x3, healthy appearing, alert and well nourished General appearance: cooperative HENNC Common normals: normocephalic, hearing grossly normal bilaterally and moist oral mucous membranes Head and scalp: normocephalic Eye Common normals: PERRL Pupil: PERRL Neck & C-Spine Common normals: full ROM General: normal visual inspection Chest Common normals: inspection of chest normal Respiratory Common normals: normal respiratory effort, no retractions and no use of accessory muscles Back & Pelvis Lumbar spine/lower back: ROM limited, pain with ROM and straight leg raise negative bilaterally; no lumbar spinal tenderness, no paraspinal muscle tenderness and no paraspinal muscle spasm Sacroiliac joints: SI joints normal Other: bilateral sij negative awilda(patricks), gaenslens, thigh thrust, compression test strength 5/5 in BLE sensation intact BLE facet loading positive bilaterally tenderness over L3-S1 Extremity Common normals: normal to inspection and full ROM Neuro Common normals: oriented x3, CN's II-XII intact bilaterally, moves all extremities, no focal motor deficits, no sensory deficits noted and deep tendon reflexes 2+ bilaterally Sensorium/orientation: alert Gait (neuro): assistive device used walker Motor exam: no movement abnormalities noted and strength abnormal Psych Common normals: mental status grossly normal, thought process normal, cooperative, affect normal, speech normal and activity/motor behavior normal Speech: normal speech Thought process: normal thought process Results Imaging Lumbar Xray: Attestation: I have reviewed the pertinent imaging results. Radiologist's impression: BONES: Grade 1 anterior listhesis of L4 on 5. Grade 1 retrolisthesis of L1 on 2. Moderate compression fracture of T12. Moderate degenerative facet arthropathy L3-4 through L5-S1. DISC SPACES: Marked narrowing L4-5. Moderate narrowing L3-4 and L5-S1. Mild narrowing at remaining levels. PARASPINOUS: Marked atherosclerotic disease of aorta; no appreciable aneurysm. Assessment and Plan Assessment and Plan (1) Lumbar spondylosis: Assessment and Plan: The patient has had over 3 months of moderate to severe low back pain with functional impairment and inadequate response to conservative care including NSAIDS (unless there are contraindication such as concurrent blood thinners), multiple oral or topical pain medications, and home exercise program/physical therapy.? Patient has completed >6 weeks of guided home exercise program and/or formal physical therapy program without relief of their symptoms.? I have reviewed the imaging of the lumbar spine and no red flags were identified.? We discussed the risks and benefits of the procedure with the patient, and we are NOT planning on using sedation as outlined in the guidelines from Medicare unless there is a documented reason that sedation would be strongly recommended.?? ?The procedure will be completed with fluoroscopic guidance.? (2) Sacroiliac joint dysfunction: Assessment and Plan: >50% improvement ongoing (3) Lumbar stenosis with neurogenic claudication: (4) Failed back syndrome: (5) Lumbar degenerative disc disease: Plan bilateral L4-5 L5-S1 MBB x2 working towards RFA continue current medications and HEP as tolerated f/u after each injection
== END 2024-01-09 11:07 | disposition home or self-care (01) ==
LOC: PM 11:07
PROVIDERS: PCP Family Medicine; Visit Provider Nurse Practitioner
DX: M47.816 Spondylosis without myelopathy or radiculopathy, lumbar region (principal); M53.3 Sacrococcygeal disorders, not elsewhere classified; M48.062 Spinal stenosis, lumbar region with neurogenic claudication; M96.1 Postlaminectomy syndrome, not elsewhere classified; M51.369 Other intervertebral disc degeneration, lumbar region without mention of lumbar back pain or lower extremity pain
CPT/HCPCS: G0463

== ENCOUNTER 2024-01-28 10:18 | Day surgery (SDC) | payer MEDICARE, SELFPAY ==
[2024-01-28 11:15] VITALS: BP 180/93; PULSE 58; TEMP 36.7; O2SAT 94
[2024-01-28 12:02] VITALS: PULSE 58; PULSE 60; O2SAT 100; O2SAT 99
[2024-01-28 12:03] VITALS: BP 205/91
[2024-01-28 12:04] VITALS: BP 198/90
[2024-01-28] MEDS: BUPIVACAINE HCL 0.25% PF 25 MG/10 ML VIAL 8 ML INJ (12:06)
[2024-01-28] MEDS: LIDOCAINE HCL 2% 400 MG/20 ML MDV INJ (12:06)
--- NOTE | 2024-01-28 12:09 | W.PM.PROCNOT ---
Date of procedure: 01/28/24 Pre-op diagnosis: Pain due to lumbar spondylosis without myelopathy Post-op diagnosis: same as pre-op Procedure: Procedure: Bilateral L4-5, L5-S1 medial branch block Medications: Bupivacaine 0.25% 6cc The patient was seen and examined in the preoperative holding area.? An informed consent was obtained and placed on the chart.? The patient was brought to the medical procedure unit and placed in the prone position.? A timeout was completed verifying correct patient, procedure site, positioning, plan, and special equipment.? Using aseptic technique, the needle was placed at left L4. Under direct fluoroscopic visualization a Quincke-tipped spinal needle was advanced to the junction of the superior articulating process with the transverse process at the designated medial branch segment.? Preceded by negative aspiration, the above-mentioned injectate was placed in 1 mL aliquots.? The procedure was repeated at left L5, S1.? The needle was removed and insertion site was covered. The same procedure, at the same levels, was completed on the right side. The patient was taken to the postprocedural recovery area and monitored for an appropriate length of time before found suitable for discharge in the company of a responsible adult. Anesthesia: Local Surgeon: Anil Man Pathology: none sent Condition: stable Disposition: no change
== END 2024-01-28 12:20 | disposition home or self-care (01) ==
LOC: SURGOUT 10:19
PROVIDERS: PCP Family Medicine; Visit Provider Anesthesiology
DX: M47.816 Spondylosis without myelopathy or radiculopathy, lumbar region (principal)
CPT/HCPCS: 64493; 64494; J0665

== ENCOUNTER 2024-01-30 11:18 | Outpatient (OUT) | payer MEDICARE, SELFPAY ==
--- NOTE | 2024-01-30 11:53 | PM.CN ---
Consult Note: HPI Data of Consult Patient: known to practice within the last 3 years Requesting Physician: Zuleima Valdivia NP Primary Care Provider: HARDEEP SUÁREZ Consult Narrative Reason for consult: re-establish chronic low back pain Narrative: Carly Marcelino a pleasant 83 year old female presents for evaluation and management of severe low back pain. pt has a longstanding hx of low back pain, previous lumbar surgery per pt but known type, and recently engaged in PT greater than 6 weeks without benefit. lumbar xray consistent with multilevel facet arthropathy and DDD. hx of T12 compression fx. pt currently on baclofen 5mg PRN, tramadol 50-100mg TID PRN, gabapentin 300mg TID, and tylenol 325-650mg PRN. Avoids NSAIDs. Recently underwent right SIJ injection with >50% improvement ongoing. Pain today 0/10 aching in low back, increasing to 7/10 in low back with standing walking leaning lifting twisting, improved with sleep and sitting. no longer experiencing shooting burning radiating pain. recent bilateral l4-5 L5-s1 MBB #1 with mild relief for a few hours. cc:: CC: Zuleima Valdivia NP Review of Systems ROS Status of ROS 10 or more systems reviewed and unremarkable except as noted in history and below Musculoskeletal Reports: back pain PFSH PFSH Medical History Osteoarthritis ?M19.90 - Unspecified osteoarthritis, unspecified site (ICD-10) Seizure ?R56.9 - Unspecified convulsions (ICD-10) Asthma ?J45.909 - Unspecified asthma, uncomplicated (ICD-10) HTN (hypertension) ?I10 - Essential (primary) hypertension (ICD-10) Surgical History History of foot surgery ?Z98.890 - Other specified postprocedural states (ICD-10) History of total knee arthroplasty ?Z96.659 - Presence of unspecified artificial knee joint (ICD-10) History of tonsillectomy and adenoidectomy ?Z90.89 - Acquired absence of other organs (ICD-10) History of pharyngoplasty ?Z98.890 - Other specified postprocedural states (ICD-10) History of back surgery ?Z98.890 - Other specified postprocedural states (ICD-10) History of breast biopsy ?Z98.890 - Other specified postprocedural states (ICD-10) History of total shoulder replacement ?Z96.619 - Presence of unspecified artificial shoulder joint (ICD-10) Meds Home Medications and Allergies Home Medications ?Medication ?Instructions ?Recorded ?Confirmed ?Type alprazolam 0.25 mg tablet 0.5 mg PO BID PRN anxiety 09/08/23 01/28/24 History calcium carbonate (Oyster Shell 500 mg PO DAILY 09/08/23 01/28/24 History Calcium) cetirizine 10 mg tablet (24Hour 10 mg PO DAILY 09/08/23 01/28/24 History Allergy) coenzyme Q10 10 mg capsule (Co 10 mg PO TID 09/08/23 01/28/24 History Q-10) cyanocobalamin (vitamin B-12) 1,000 mcg PO DAILY 09/08/23 01/28/24 History 1,000 mcg capsule docusate sodium 100 mg capsule 100 mg PO BID 09/08/23 01/28/24 History (Col-Rite) ferrous sulfate 325 mg (65 mg 325 mg PO DAILY 09/08/23 01/28/24 History iron) tablet (FeroSul) gabapentin 300 mg capsule 300 mg PO Q8H 09/08/23 01/28/24 History lisinopril 5 mg tablet 2.5 mg PO BEDTIME 09/08/23 01/28/24 History losartan 50 mg tablet 50 mg PO DAILY 09/08/23 01/28/24 History magnesium 200 mg tablet 400 mg PO DAILY 09/08/23 01/28/24 History metoprolol tartrate 50 mg tablet 50 mg PO BID 09/08/23 01/28/24 History (Lopressor) montelukast 10 mg tablet 10 mg PO DAILY 09/08/23 01/28/24 History omega 0-tmo-mbc-fish oil 1,000 mg 1 cap PO DAILY 09/08/23 01/28/24 History (120 mg-180 mg) capsule (Fish Oil) pravastatin 20 mg tablet 40 mg PO BEDTIME 09/08/23 01/28/24 History Allergies Allergy/AdvReac Type Severity Reaction Status Date / Time alcohol (From Mastisol AdvReac Mild RASH Verified 01/28/24 11:22 Adhesive) amlodipine AdvReac Mild UNKNOWN Verified 01/28/24 11:22 carbamazepine AdvReac Mild UNKNOWN Verified 01/28/24 11:22 divalproex sodium (From AdvReac Mild Unknown Verified 01/28/24 11:22 Depakote) gum mastic (From Mastisol AdvReac Mild UNKNOWN Verified 01/28/24 11:22 Adhesive) Hydantoins AdvReac Mild Unknown Verified 01/28/24 11:22 hydrochlorothiazide AdvReac Mild Unknown Verified 01/28/24 11:22 labetalol AdvReac Mild Unknown Verified 01/28/24 11:22 methyl salicylate (From AdvReac Mild Unknown Verified 01/28/24 11:22 Mastisol Adhesive) mometasone furoate AdvReac Mild Unknown Verified 01/28/24 11:22 nifedipine AdvReac Mild Unknown Verified 01/28/24 11:22 nitrofurantoin AdvReac Mild Unknown Verified 01/28/24 11:22 phenytoin (From Dilantin) AdvReac Mild Unknown Verified 01/28/24 11:22 sertraline AdvReac Mild Unknown Verified 01/28/24 11:22 storax (From Mastisol AdvReac Mild Unknown Verified 01/28/24 11:22 Adhesive) valproic acid AdvReac Mild Unknown Verified 01/28/24 11:22 Exam Constitutional Documenting provider has reviewed patient's vital signs: yes Common normals: no apparent distress, oriented x3, healthy appearing, alert and well nourished General appearance: cooperative [facility] Common normals: normocephalic, hearing grossly normal bilaterally and moist oral mucous membranes Head and scalp: normocephalic Eye Common normals: PERRL Pupil: PERRL Neck & C-Spine Common normals: full ROM General: normal visual inspection Chest Common normals: inspection of chest normal Respiratory Common normals: normal respiratory effort, no retractions and no use of accessory muscles Back & Pelvis Lumbar spine/lower back: ROM limited, pain with ROM and straight leg raise negative bilaterally; no lumbar spinal tenderness, no paraspinal muscle tenderness and no paraspinal muscle spasm Sacroiliac joints: SI joints normal Other: bilateral sij negative awilda(patricks), gaenslens, thigh thrust, compression test strength 5/5 in BLE sensation intact BLE facet loading positive bilaterally tenderness over L3-S1 Extremity Common normals: normal to inspection and full ROM Neuro Common normals: oriented x3, CN's II-XII intact bilaterally, moves all extremities, no focal motor deficits, no sensory deficits noted and deep tendon reflexes 2+ bilaterally Sensorium/orientation: alert Gait (neuro): assistive device used walker Motor exam: no movement abnormalities noted and strength abnormal Psych Common normals: mental status grossly normal, thought process normal, cooperative, affect normal, speech normal and activity/motor behavior normal Speech: normal speech Thought process: normal thought process Assessment and Plan Assessment and Plan (1) Lumbar spondylosis: (2) Lumbar stenosis with neurogenic claudication: (3) Lumbar degenerative disc disease: (4) Sacroiliac joint dysfunction: Plan at this time pt would like to think about her treatment options, she is hesitant to purse lumbar MRI without contrast to assess lumbar spondylosis, lumbar stenosis with NC, and lumbar DDD due to claustrophobia. Pt would like to think more about changing MBB to bilateral L3-4 L4-5 x2 working towards RFA as she did not get significant relief from bilateral L4-5 L5-S1 MBB #1. continue medications through PCP
== END 2024-01-30 11:19 | disposition home or self-care (01) ==
LOC: PM 11:19
PROVIDERS: PCP Family Medicine; Visit Provider Nurse Practitioner
DX: M47.816 Spondylosis without myelopathy or radiculopathy, lumbar region (principal); M48.062 Spinal stenosis, lumbar region with neurogenic claudication; M51.369 Other intervertebral disc degeneration, lumbar region without mention of lumbar back pain or lower extremity pain; M53.3 Sacrococcygeal disorders, not elsewhere classified
CPT/HCPCS: G0463

== ENCOUNTER 2024-03-07 12:32 | Outpatient (OUT) | payer MEDICARE, SELFPAY ==
--- NOTE | 2024-03-07 | XR_ITS ---
The [address] [address] Patient Name: SANDRINE ROBERT MRN: [facility]:[id number] date: 1940 Sex: F Assigned Patient Location: MRI Current Patient Location: MRI Accession/Order Number: [id number] Exam Date: 03/07/2024 13:15 Report Date: 03/07/2024 13:42 At the request of: JENNIFER MAYNARD Procedure: XR skull <4V EXAMINATION: XR skull <4V HISTORY: pre MRI COMPARISON: No relevant comparison available. FINDINGS: ORBITS: Negative for a metallic foreign body. OTHER: 3 separate thin metallic coils appearing to overlie the left temporal fossa; possibly vascular embolization coils. XR/XR skull <4V IMPRESSION: 1. There are 3 metallic objects suspected be within the left temporal fossa of the brain suggestive of endovascular coils. Electronically authenticated by: RUFINO MAY Date: 03/07/2024 13:42
== END 2024-03-07 12:33 | disposition home or self-care (01) ==
LOC: MRI 12:32
PROVIDERS: PCP Family Medicine; Visit Provider Nurse Practitioner
DX: Z01.818 Encounter for other preprocedural examination (principal); M48.062 Spinal stenosis, lumbar region with neurogenic claudication
CPT/HCPCS: 70250

== ENCOUNTER 2024-04-08 14:53 | Outpatient (OUT) | payer MEDICARE, SELFPAY ==
--- NOTE | 2024-04-08 14:56 | MR_ITS ---
[address] [address] Patient Name: SANDRINE ROBERT MRN: [facility]:[id number] date: 1940 Sex: F Assigned Patient Location: MRI Current Patient Location: Accession/Order Number: [id number] Exam Date: 04/08/2024 15:10 Report Date: 04/09/2024 09:33 At the request of: JENNIFER MAYNARD Procedure: MR lumbar spine wo con EXAM: MR lumbar spine wo con CLINICAL INDICATION: Lumbar Stenosis, T12 compression fracture COMPARISON: Lumbar spine radiographs 12/19/2023 TECHNIQUE/PROTOCOL: Noncontrast lumbar spine MR protocol (Sagittal T1, T2, STIR and axial T1, T2 sequences). FINDINGS: Segmentation: Normal. Conus: Terminates at the superior L2 endplate. Spinal Cord and Cauda Equina: Normal. Epidural Hematoma: None. Alignment: Grade 1 anterolisthesis of L4 on L5. Marrow Signal and Vertebral Body Heights: Compression deformity of T12 with approximately 50% height loss demonstrates mild marrow edema and approximately 0.2 cm of retropulsion. Height loss has mildly progressed since 12/19/2023. Remainder of the vertebral body heights are maintained. Sacroiliac Joints: Grossly normal given only partially visualized. Paraspinal Soft Tissues: Mild prevertebral soft tissue edema at T11-T12. Retroperitoneal Soft Tissues: No acute abnormalities. Mixed-signal bilateral renal cysts. Spondylotic Changes: Multilevel spondylotic changes include diffuse disc desiccation and varying degrees of intervertebral disc height loss, osteophytic ridging, and facet/ligamentum flavum hypertrophy. T12-L1: Slight disc bulge minimally indents the ventral thecal sac. No high-grade spinal canal narrowing. Advanced right and mild left foraminal narrowing. Mild bilateral facet/ligamentum flavum hypertrophy. L1-L2: Slight disc bulge indents the ventral thecal sac. No high-grade spinal canal narrowing. Mild bilateral foraminal narrowing. Mild bilateral facet/ligamentum flavum hypertrophy. L2-L3: Slight disc bulge minimally indents the ventral thecal sac. No high-grade spinal canal narrowing. Mild bilateral foraminal narrowing. Mild bilateral facet/ligamentum flavum hypertrophy. L3-L4: Slight disc bulge and osteophytic ridging minimally indents the ventral thecal sac. Mild spinal canal narrowing. Moderate bilateral foraminal narrowing. Moderate bilateral facet/ligamentum flavum hypertrophy. L4-L5: No disc bulge or herniation. Mild to moderate spinal canal narrowing. Moderate bilateral foraminal narrowing. Advanced bilateral facet hypertrophy. L5-S1: Slight disc bulge minimally indents the ventral thecal sac. No high-grade spinal canal narrowing. Moderate bilateral foraminal narrowing. Moderate bilateral facet/ligamentum flavum hypertrophy. Suspected right hemilaminectomy changes. MR/MR lumbar spine wo con IMPRESSION: 1. Compression deformity of T12 with approximately 50% height loss demonstrates mild marrow edema and approximately 0.2 cm of retropulsion. Height loss has mildly progressed since 12/19/2023. 2. Multilevel spondylotic changes without high-grade spinal canal narrowing at any lumbar level. 3. Foraminal narrowing is advanced on the right at T12-L1. 4. Mild prevertebral soft tissue edema at T11-T12. Electronically authenticated by: SHEA SOLORIO Date: 04/09/2024 09:33
== END 2024-04-08 14:54 | disposition home or self-care (01) ==
LOC: MRI 14:54
PROVIDERS: PCP Family Medicine; Visit Provider Nurse Practitioner
DX: M48.062 Spinal stenosis, lumbar region with neurogenic claudication (principal); M48.54XA Collapsed vertebra, not elsewhere classified, thoracic region, initial encounter for fracture; M47.816 Spondylosis without myelopathy or radiculopathy, lumbar region
CPT/HCPCS: 72148

== ENCOUNTER 2024-05-01 13:54 | Outpatient (OUT) | payer MEDICARE, SELFPAY ==
--- NOTE | 2024-05-01 13:58 | PM.CN ---
Consult Note: HPI Data of Consult Patient: known to practice within the last 3 years Requesting Physician: Zuleima Valdivia NP Primary Care Provider: HARDEEP SUÁREZ Consult Narrative Reason for consult: chronic low back pain Narrative: Carly Marcelino a pleasant 83 year old female presents for evaluation and management of severe low back pain. pt has a longstanding hx of low back pain, previous lumbar surgery per pt but known type, and recently engaged in PT greater than 6 weeks without benefit. lumbar xray consistent with multilevel facet arthropathy and DDD. hx of T12 compression fx. recently underwent lumbar MRI with results below pt currently on baclofen 5mg PRN, tramadol 50-100mg TID PRN, gabapentin 300mg TID, and tylenol 325-650mg PRN with benefit without side effects. Avoids NSAIDs. CECIL 29%, moderate pain with standing, walking, ADLs, pain impacting sleep and social life/travel. cc:: CC: Zuleima Valdivia NP [facility] Medical History Osteoarthritis ?M19.90 - Unspecified osteoarthritis, unspecified site (ICD-10) Seizure ?R56.9 - Unspecified convulsions (ICD-10) Asthma ?J45.909 - Unspecified asthma, uncomplicated (ICD-10) HTN (hypertension) ?I10 - Essential (primary) hypertension (ICD-10) Surgical History History of foot surgery ?Z98.890 - Other specified postprocedural states (ICD-10) History of total knee arthroplasty ?Z96.659 - Presence of unspecified artificial knee joint (ICD-10) History of tonsillectomy and adenoidectomy ?Z90.89 - Acquired absence of other organs (ICD-10) History of pharyngoplasty ?Z98.890 - Other specified postprocedural states (ICD-10) History of back surgery ?Z98.890 - Other specified postprocedural states (ICD-10) History of breast biopsy ?Z98.890 - Other specified postprocedural states (ICD-10) History of total shoulder replacement ?Z96.619 - Presence of unspecified artificial shoulder joint (ICD-10) Meds Home Medications and Allergies Home Medications ?Medication ?Instructions ?Recorded ?Confirmed ?Type alprazolam 0.25 mg tablet 0.5 mg PO BID PRN anxiety 09/08/23 01/28/24 History calcium carbonate (Oyster Shell 500 mg PO DAILY 09/08/23 01/28/24 History Calcium) cetirizine 10 mg tablet (24Hour 10 mg PO DAILY 09/08/23 01/28/24 History Allergy) coenzyme Q10 10 mg capsule (Co 10 mg PO TID 09/08/23 01/28/24 History Q-10) cyanocobalamin (vitamin B-12) 1,000 mcg PO DAILY 09/08/23 01/28/24 History 1,000 mcg capsule docusate sodium 100 mg capsule 100 mg PO BID 09/08/23 01/28/24 History (Col-Rite) ferrous sulfate 325 mg (65 mg 325 mg PO DAILY 09/08/23 01/28/24 History iron) tablet (FeroSul) gabapentin 300 mg capsule 300 mg PO Q8H 09/08/23 01/28/24 History lisinopril 5 mg tablet 2.5 mg PO BEDTIME 09/08/23 01/28/24 History losartan 50 mg tablet 50 mg PO DAILY 09/08/23 01/28/24 History magnesium 200 mg tablet 400 mg PO DAILY 09/08/23 01/28/24 History metoprolol tartrate 50 mg tablet 50 mg PO BID 09/08/23 01/28/24 History (Lopressor) montelukast 10 mg tablet 10 mg PO DAILY 09/08/23 01/28/24 History omega 9-xti-hgh-fish oil 1,000 mg 1 cap PO DAILY 09/08/23 01/28/24 History (120 mg-180 mg) capsule (Fish Oil) pravastatin 20 mg tablet 40 mg PO BEDTIME 09/08/23 01/28/24 History Allergies Allergy/AdvReac Type Severity Reaction Status Date / Time alcohol (From Mastisol AdvReac Mild RASH Verified 01/28/24 11:22 Adhesive) amlodipine AdvReac Mild UNKNOWN Verified 01/28/24 11:22 carbamazepine AdvReac Mild UNKNOWN Verified 01/28/24 11:22 divalproex sodium (From AdvReac Mild Unknown Verified 01/28/24 11:22 Depakote) gum mastic (From Mastisol AdvReac Mild UNKNOWN Verified 01/28/24 11:22 Adhesive) Hydantoins AdvReac Mild Unknown Verified 01/28/24 11:22 hydrochlorothiazide AdvReac Mild Unknown Verified 01/28/24 11:22 labetalol AdvReac Mild Unknown Verified 01/28/24 11:22 methyl salicylate (From AdvReac Mild Unknown Verified 01/28/24 11:22 Mastisol Adhesive) mometasone furoate AdvReac Mild Unknown Verified 01/28/24 11:22 nifedipine AdvReac Mild Unknown Verified 01/28/24 11:22 nitrofurantoin AdvReac Mild Unknown Verified 01/28/24 11:22 phenytoin (From Dilantin) AdvReac Mild Unknown Verified 01/28/24 11:22 sertraline AdvReac Mild Unknown Verified 01/28/24 11:22 storax (From Mastisol AdvReac Mild Unknown Verified 01/28/24 11:22 Adhesive) valproic acid AdvReac Mild Unknown Verified 01/28/24 11:22 Exam Constitutional Documenting provider has reviewed patient's vital signs: yes Common normals: no apparent distress, oriented x3, healthy appearing, alert and well nourished General appearance: cooperative [facility] Common normals: normocephalic, hearing grossly normal bilaterally and moist oral mucous membranes Head and scalp: normocephalic Eye Common normals: PERRL Pupil: PERRL Neck & C-Spine Common normals: full ROM General: normal visual inspection Chest Common normals: inspection of chest normal Respiratory Common normals: normal respiratory effort, no retractions and no use of accessory muscles Back & Pelvis Lumbar spine/lower back: ROM limited, pain with ROM and straight leg raise negative bilaterally; no lumbar spinal tenderness, no paraspinal muscle tenderness and no paraspinal muscle spasm Sacroiliac joints: SI joint(s) abnormal Other: left SIJ positive awilda(patricks), gaenslens, thigh thrust, compression test strength 5/5 in BLE sensation intact BLE facet loading positive bilaterally tenderness over L3-S1 increased pain with standing and walking, improved with bending and forward flexion Extremity Common normals: normal to inspection and full ROM Neuro Common normals: oriented x3, CN's II-XII intact bilaterally, moves all extremities, no focal motor deficits, no sensory deficits noted and deep tendon reflexes 2+ bilaterally Sensorium/orientation: alert Gait (neuro): assistive device used walker Motor exam: no movement abnormalities noted and strength abnormal Psych Common normals: mental status grossly normal, thought process normal, cooperative, affect normal, speech normal and activity/motor behavior normal Speech: normal speech Thought process: normal thought process Results Additional Findings Additional findings: T12-L1: Slight disc bulge minimally indents the ventral thecal sac. No high-grade spinal canal narrowing. Advanced right and mild left foraminal narrowing. Mild bilateral facet/ligamentum flavum hypertrophy. L1-L2: Slight disc bulge indents the ventral thecal sac. No high-grade spinal canal narrowing. Mild bilateral foraminal narrowing. Mild bilateral facet/ligamentum flavum hypertrophy. L2-L3: Slight disc bulge minimally indents the ventral thecal sac. No high-grade spinal canal narrowing. Mild bilateral foraminal narrowing. Mild bilateral facet/ligamentum flavum hypertrophy. L3-L4: Slight disc bulge and osteophytic ridging minimally indents the ventral thecal sac. Mild spinal canal narrowing. Moderate bilateral foraminal narrowing. Moderate bilateral facet/ligamentum flavum hypertrophy. L4-L5: No disc bulge or herniation. Mild to moderate spinal canal narrowing. Moderate bilateral foraminal narrowing. Advanced bilateral facet hypertrophy. L5-S1: Slight disc bulge minimally indents the ventral thecal sac. No high-grade spinal canal narrowing. Moderate bilateral foraminal narrowing. Moderate bilateral facet/ligamentum flavum hypertrophy. Suspected right hemilaminectomy changes. Assessment and Plan Assessment and Plan (1) Lumbar stenosis with neurogenic claudication: (2) Lumbar spondylosis: (3) Failed back syndrome: (4) Lumbar degenerative disc disease: (5) Sacroiliac joint dysfunction: Plan lumbar MRI reviewed with pt, proceed with bilateral L5-S1 TFESI under fluoroscopy for lumbar stenosis with NC may consider left SIJ injection if needed consider bilateral L3-4 L4-5 MBB x2 working towards RFA for axial low back pain declining aquatherapy for generalized weakness at this time, continue HEP as tolerated. continue to utilize walker, denies falls f/u 2 weeks after injection
== END 2024-05-01 13:55 | disposition home or self-care (01) ==
LOC: PM 13:54
PROVIDERS: PCP Family Medicine; Visit Provider Nurse Practitioner
DX: M48.062 Spinal stenosis, lumbar region with neurogenic claudication (principal); M47.816 Spondylosis without myelopathy or radiculopathy, lumbar region; M96.1 Postlaminectomy syndrome, not elsewhere classified; M51.369 Other intervertebral disc degeneration, lumbar region without mention of lumbar back pain or lower extremity pain; M53.3 Sacrococcygeal disorders, not elsewhere classified
CPT/HCPCS: G0463

== ENCOUNTER 2024-05-12 10:37 | Day surgery (SDC) | payer MEDICARE, SELFPAY ==
[2024-05-12 10:41] VITALS: BP 180/84; PULSE 60; TEMP 36.3; O2SAT 97
[2024-05-12 11:00] VITALS: BP 195/86; BP 197/88; PULSE 64; PULSE 66; O2SAT 99
[2024-05-12] MEDS: METHYLPREDNISOLONE ACETATE 80 MG/ML VIAL INJ (11:04)
[2024-05-12] MEDS: 0.9 % SODIUM CHLORIDE 10 ML SYRINGE - SALINE FLUSH INJ (11:04)
[2024-05-12] MEDS: LIDOCAINE HCL 2% 400 MG/20 ML MDV 3 ML INJ (11:04)
[2024-05-12] MEDS: BUPIVACAINE HCL 0.25% PF 25 MG/10 ML VIAL INJ (11:04)
[2024-05-12] MEDS: IOHEXOL 240 MG/ML - 10 ML VIAL 24 MG INJ (11:04)
--- NOTE | 2024-05-12 11:04 | W.PM.PROCNOT ---
Date of procedure: 05/12/24 Pre-op diagnosis: Pain due to lumbar stenosis with neurogenic claudication Post-op diagnosis: same as pre-op Procedure: Procedure: Bilateral L5-S1 transforaminal epidural steroid injection Medications: Bupivacaine 0.25% 2cc, lidocaine 2% 1cc, depomedrol 80mg The patient was seen and examined in the preoperative holding area.? Informed consent was obtained and placed on the chart.? Patient was brought to the medical procedure unit and placed in the prone position where a timeout was completed verifying the correct patient, procedure site, position, and planned special equipment using sterile aseptic technique.? Under direct fluoroscopic visualization a 25-gauge Quincke tipped spinal needle was advanced at level left L5-S1 to the designated neural foramen where contrast dye was injected to show adequate spread.? There was no evidence of vascular or adverse uptake.? Epidural spread was appreciated.? The above-mentioned injectate was then placed in a 1.5 mL aliquot preceded by negative aspiration.? The needle was removed. The same procedure, at the same level, was completed on the opposite side. ? Patient was taken to the postprocedural recovery area and monitored for an appropriate length of time before found suitable for discharge in the accompaniment of a responsible adult. Anesthesia: Local Surgeon: Anil Man Pathology: none sent Condition: stable Disposition: no change
== END 2024-05-12 11:15 | disposition home or self-care (01) ==
LOC: SURGOUT 10:38
PROVIDERS: PCP Family Medicine; Visit Provider Anesthesiology
DX: M48.062 Spinal stenosis, lumbar region with neurogenic claudication (principal)
CPT/HCPCS: 64483; J0665; J1010; Q9966

== ENCOUNTER 2024-05-21 13:43 | Outpatient (OUT) | payer MEDICARE, SELFPAY ==
--- NOTE | 2024-05-21 14:22 | P.CN_ITS ---
Consult Note: HPI Data of Consult Patient: known to practice within the last 3 years Requesting Physician: Zuleima Valdivia NP Primary Care Provider: HARDEEP SUÁREZ Consult Narrative Reason for consult: chronic low back pain Narrative: Carly Marcelino a pleasant 83 year old female presents for evaluation and management of severe low back pain. pt has a longstanding hx of low back pain, previous lumbar surgery per pt but known type, and recently engaged in PT greater than 6 weeks without benefit. lumbar xray consistent with multilevel facet arthropathy and DDD. hx of T12 compression fx. recently underwent lumbar MRI with results below pt currently on baclofen 5mg PRN, tramadol 50-100mg TID PRN, gabapentin 300mg TID, and tylenol 325-650mg PRN with benefit without side effects. Avoids NSAIDs. CECIL 28%, moderate pain with standing, walking, ADLs, pain impacting sleep and social life/travel. Recent bilateral L5/S1 TFESI providing >50% improvement in pain and functional ability. continues to have moderate axial low back pain, currently 3/10 increasing to 8/10 with standing, walking, lifting, and doing laundry. cc:: CC: Zuleima Valdivia NP [facility] Medical History Osteoarthritis ?M19.90 - Unspecified osteoarthritis, unspecified site (ICD-10) Seizure ?R56.9 - Unspecified convulsions (ICD-10) Asthma ?J45.909 - Unspecified asthma, uncomplicated (ICD-10) HTN (hypertension) ?I10 - Essential (primary) hypertension (ICD-10) Surgical History History of foot surgery ?Z98.890 - Other specified postprocedural states (ICD-10) History of total knee arthroplasty ?Z96.659 - Presence of unspecified artificial knee joint (ICD-10) History of tonsillectomy and adenoidectomy ?Z90.89 - Acquired absence of other organs (ICD-10) History of pharyngoplasty ?Z98.890 - Other specified postprocedural states (ICD-10) History of back surgery ?Z98.890 - Other specified postprocedural states (ICD-10) History of breast biopsy ?Z98.890 - Other specified postprocedural states (ICD-10) History of total shoulder replacement ?Z96.619 - Presence of unspecified artificial shoulder joint (ICD-10) Meds Home Medications and Allergies Home Medications ?Medication ?Instructions ?Recorded ?Confirmed ?Type alprazolam 0.25 mg tablet 0.5 mg PO BID PRN anxiety 09/08/23 05/12/24 History calcium carbonate (Oyster Shell 500 mg PO DAILY 09/08/23 05/12/24 History Calcium) cetirizine 10 mg tablet (24Hour 10 mg PO DAILY 09/08/23 05/12/24 History Allergy) cyanocobalamin (vitamin B-12) 1,000 mcg PO DAILY 09/08/23 05/12/24 History 1,000 mcg capsule docusate sodium 100 mg capsule 100 mg PO BID 09/08/23 05/12/24 History (Col-Rite) ferrous sulfate 325 mg (65 mg 325 mg PO DAILY 09/08/23 05/12/24 History iron) tablet (FeroSul) gabapentin 300 mg capsule 300 mg PO Q8H 09/08/23 05/12/24 History lisinopril 5 mg tablet 2.5 mg PO BEDTIME 09/08/23 05/12/24 History losartan 50 mg tablet 50 mg PO DAILY 09/08/23 05/12/24 History magnesium 200 mg tablet 400 mg PO DAILY 09/08/23 05/12/24 History metoprolol tartrate 50 mg tablet 50 mg PO BID 09/08/23 05/12/24 History (Lopressor) montelukast 10 mg tablet 10 mg PO DAILY 09/08/23 05/12/24 History omega 8-nso-eam-fish oil 1,000 mg 1 cap PO DAILY 09/08/23 05/12/24 History (120 mg-180 mg) capsule (Fish Oil) pravastatin 20 mg tablet 40 mg PO BEDTIME 09/08/23 05/12/24 History Allergies Allergy/AdvReac Type Severity Reaction Status Date / Time alcohol (From Mastisol AdvReac Mild RASH Verified 05/12/24 10:47 Adhesive) amlodipine AdvReac Mild UNKNOWN Verified 05/12/24 10:47 carbamazepine AdvReac Mild UNKNOWN Verified 05/12/24 10:47 divalproex sodium (From AdvReac Mild Unknown Verified 05/12/24 10:47 Depakote) gum mastic (From Mastisol AdvReac Mild UNKNOWN Verified 05/12/24 10:47 Adhesive) Hydantoins AdvReac Mild Unknown Verified 05/12/24 10:47 hydrochlorothiazide AdvReac Mild Unknown Verified 05/12/24 10:47 labetalol AdvReac Mild Unknown Verified 05/12/24 10:47 methyl salicylate (From AdvReac Mild Unknown Verified 05/12/24 10:47 Mastisol Adhesive) mometasone furoate AdvReac Mild Unknown Verified 05/12/24 10:47 nifedipine AdvReac Mild Unknown Verified 05/12/24 10:47 nitrofurantoin AdvReac Mild Unknown Verified 05/12/24 10:47 phenytoin (From Dilantin) AdvReac Mild Unknown Verified 05/12/24 10:47 sertraline AdvReac Mild Unknown Verified 05/12/24 10:47 storax (From Mastisol AdvReac Mild Unknown Verified 05/12/24 10:47 Adhesive) valproic acid AdvReac Mild Unknown Verified 05/12/24 10:47 Exam Constitutional Documenting provider has reviewed patient's vital signs: yes Common normals: no apparent distress, oriented x3, healthy appearing, alert and well nourished General appearance: cooperative HENWI Common normals: normocephalic, hearing grossly normal bilaterally and moist oral mucous membranes Head and scalp: normocephalic Eye Common normals: PERRL Pupil: PERRL Neck & C-Spine Common normals: full ROM General: normal visual inspection Chest Common normals: inspection of chest normal Respiratory Common normals: normal respiratory effort, no retractions and no use of accessory muscles Back & Pelvis Lumbar spine/lower back: ROM limited, pain with ROM, lumbar spinal tenderness Lumbar spinal tenderness location: L4 and L5 and straight leg raise negative bilaterally Extremity Common normals: normal to inspection and full ROM Neuro Common normals: oriented x3, CN's II-XII intact bilaterally, moves all extremities, no focal motor deficits, no sensory deficits noted and deep tendon reflexes 2+ bilaterally Sensorium/orientation: alert Motor exam: strength 5/5 throughout and no movement abnormalities noted Psych Common normals: mental status grossly normal, thought process normal, cooperative, affect normal, speech normal and activity/motor behavior normal Speech: normal speech Thought process: normal thought process Results Additional Findings Additional findings: T12-L1: Slight disc bulge minimally indents the ventral thecal sac. No high-grade spinal canal narrowing. Advanced right and mild left foraminal narrowing. Mild bilateral facet/ligamentum flavum hypertrophy. L1-L2: Slight disc bulge indents the ventral thecal sac. No high-grade spinal canal narrowing. Mild bilateral foraminal narrowing. Mild bilateral facet/ligamentum flavum hypertrophy. L2-L3: Slight disc bulge minimally indents the ventral thecal sac. No high-grade spinal canal narrowing. Mild bilateral foraminal narrowing. Mild bilateral facet/ligamentum flavum hypertrophy. L3-L4: Slight disc bulge and osteophytic ridging minimally indents the ventral thecal sac. Mild spinal canal narrowing. Moderate bilateral foraminal narrowing. Moderate bilateral facet/ligamentum flavum hypertrophy. L4-L5: No disc bulge or herniation. Mild to moderate spinal canal narrowing. Moderate bilateral foraminal narrowing. Advanced bilateral facet hypertrophy. L5-S1: Slight disc bulge minimally indents the ventral thecal sac. No high-grade spinal canal narrowing. Moderate bilateral foraminal narrowing. Moderate bilateral facet/ligamentum flavum hypertrophy. Suspected right hemilaminectomy changes. Assessment and Plan Assessment and Plan (1) Lumbar stenosis with neurogenic claudication: Assessment and Plan: >50% improvement ongoing from recent bilateral L5/S1 TFESI (2) Lumbar spondylosis: Assessment and Plan: The patient has had over 3 months of moderate to severe low back pain with functional impairment and inadequate response to conservative care including NSAIDS (unless there are contraindication such as concurrent blood thinners), multiple oral or topical pain medications, and home exercise program/physical therapy.? Patient has completed >6 weeks of guided home exercise program and/or formal physical therapy program without relief of their symptoms.? We discussed the risks and benefits of the procedure with the patient, and we are NOT planning on using sedation as outlined in the guidelines from Medicare unless there is a documented reason that sedation would be strongly recommended.?? ?The procedure will be completed with fluoroscopic guidance.? (3) Failed back syndrome: (4) Lumbar degenerative disc disease: (5) Sacroiliac joint dysfunction: Plan bilateral L4-5 L5-S1 MBB x2 working towards RFA for axial low back pain declining aquatherapy for generalized weakness at this time, continue HEP as tolerated. continue to utilize walker, denies falls continue medications through PCP f/u after each injection
== END 2024-05-21 13:44 | disposition home or self-care (01) ==
LOC: PM 13:45
PROVIDERS: PCP Family Medicine; Visit Provider Nurse Practitioner
DX: M48.062 Spinal stenosis, lumbar region with neurogenic claudication (principal); M47.816 Spondylosis without myelopathy or radiculopathy, lumbar region; M96.1 Postlaminectomy syndrome, not elsewhere classified; M51.369 Other intervertebral disc degeneration, lumbar region without mention of lumbar back pain or lower extremity pain; M53.3 Sacrococcygeal disorders, not elsewhere classified
CPT/HCPCS: G0463

== ENCOUNTER 2024-06-02 12:01 | Day surgery (SDC) | payer MEDICARE, SELFPAY ==
[2024-06-02 12:40] VITALS: BP 155/79; PULSE 58; TEMP 36.4; O2SAT 98
[2024-06-02 13:00] VITALS: BP 183/83; PULSE 60; O2SAT 98
[2024-06-02] MEDS: BUPIVACAINE HCL 0.25% PF 25 MG/10 ML VIAL 8 ML INJ (13:00)
[2024-06-02] MEDS: LIDOCAINE HCL 2% 400 MG/20 ML MDV INJ (13:00)
[2024-06-02 13:01] VITALS: BP 179/69; PULSE 60; O2SAT 98
--- NOTE | 2024-06-02 13:02 | W.PM.PROCNOT ---
Date of procedure: 06/02/24 Pre-op diagnosis: Pain due to lumbar spondylosis without myelopathy Post-op diagnosis: same as pre-op Procedure: Procedure: Bilateral L4-5, L5-S1 medial branch block Medications: Bupivacaine 0.25% 6cc The patient was seen and examined in the preoperative holding area.? An informed consent was obtained and placed on the chart.? The patient was brought to the medical procedure unit and placed in the prone position.? A timeout was completed verifying correct patient, procedure site, positioning, plan, and special equipment.? Using aseptic technique, the needle was placed at left L4. Under direct fluoroscopic visualization a Quincke-tipped spinal needle was advanced to the junction of the superior articulating process with the transverse process at the designated medial branch segment.? Preceded by negative aspiration, the above-mentioned injectate was placed in 1 mL aliquots.? The procedure was repeated at left L5, S1.? The needle was removed and insertion site was covered. The same procedure, at the same levels, was completed on the right side. The patient was taken to the postprocedural recovery area and monitored for an appropriate length of time before found suitable for discharge in the company of a responsible adult. Anesthesia: Local Surgeon: Anil Man Pathology: none sent Condition: stable Disposition: no change
== END 2024-06-02 13:11 | disposition home or self-care (01) ==
LOC: SURGOUT 12:03
PROVIDERS: PCP Family Medicine; Visit Provider Anesthesiology
DX: M47.816 Spondylosis without myelopathy or radiculopathy, lumbar region (principal); M54.50 Low back pain, unspecified
CPT/HCPCS: 64493; 64494; J0665

== ENCOUNTER 2024-06-05 11:25 | Outpatient (OUT) | payer MEDICARE, SELFPAY ==
--- NOTE | 2024-06-05 12:25 | P.CN_ITS ---
Consult Note: HPI Data of Consult Patient: known to practice within the last 3 years Requesting Physician: Zuleima Valdivia NP Primary Care Provider: HARDEEP SUÁREZ Consult Narrative Reason for consult: chronic low back pain Narrative: Carly Marcelino a pleasant 83 year old female presents for evaluation and management of severe low back pain. pt has a longstanding hx of low back pain, previous lumbar surgery per pt but known type, and recently engaged in PT greater than 6 weeks without benefit. lumbar xray consistent with multilevel facet arthropathy and DDD. hx of T12 compression fx. recently underwent lumbar MRI with results below pt currently on baclofen 5mg PRN, tramadol 50-100mg TID PRN, gabapentin 300mg TID, and tylenol 325-650mg PRN with benefit without side effects. Avoids NSAIDs. CECIL 34%, moderate pain with standing, walking, ADLs, pain impacting sleep and social life/travel. Recent bilateral L4/5 L5/S1 MBB #1 with >80% improvement in pain and functional ability while anesthetized. cc:: CC: Zuleima Valdivia NP Review of Systems ROS Status of ROS 10 or more systems reviewed and unremark able except as noted in history and below Musculoskeletal Reports: back pain PFSH PFSH Medical History Osteoarthritis ?M19.90 - Unspecified osteoarthritis, unspecified site (ICD-10) Seizure ?R56.9 - Unspecified convulsions (ICD-10) Asthma ?J45.909 - Unspecified asthma, uncomplicated (ICD-10) HTN (hypertension) ?I10 - Essential (primary) hypertension (ICD-10) Surgical History History of foot surgery ?Z98.890 - Other specified postprocedural states (ICD-10) History of total knee arthroplasty ?Z96.659 - Presence of unspecified artificial knee joint (ICD-10) History of tonsillectomy and adenoidectomy ?Z90.89 - Acquired absence of other organs (ICD-10) History of pharyngoplasty ?Z98.890 - Other specified postprocedural states (ICD-10) History of back surgery ?Z98.890 - Other specified postprocedural states (ICD-10) History of breast biopsy ?Z98.890 - Other specified postprocedural states (ICD-10) History of total shoulder replacement ?Z96.619 - Presence of unspecified artificial shoulder joint (ICD-10) Meds Home Medications and Allergies Home Medications ?Medication ?Instructions ?Recorded ?Confirmed ?Type alprazolam 0.25 mg tablet 0.5 mg PO BID PRN anxiety 09/08/23 06/02/24 History calcium carbonate (Oyster Shell 500 mg PO DAILY 09/08/23 06/02/24 History Calcium) cetirizine 10 mg tablet (24Hour 10 mg PO DAILY 09/08/23 06/02/24 History Allergy) cyanocobalamin (vitamin B-12) 1,000 mcg PO DAILY 09/08/23 06/02/24 History 1,000 mcg capsule docusate sodium 100 mg capsule 100 mg PO BID 09/08/23 06/02/24 History (Col-Rite) ferrous sulfate 325 mg (65 mg 325 mg PO DAILY 09/08/23 06/02/24 History iron) tablet (FeroSul) gabapentin 300 mg capsule 300 mg PO Q8H 09/08/23 06/02/24 History lisinopril 5 mg tablet 2.5 mg PO BEDTIME 09/08/23 06/02/24 History losartan 50 mg tablet 50 mg PO DAILY 09/08/23 06/02/24 History magnesium 200 mg tablet 400 mg PO DAILY 09/08/23 06/02/24 History metoprolol tartrate 50 mg tablet 50 mg PO BID 09/08/23 06/02/24 History (Lopressor) montelukast 10 mg tablet 10 mg PO DAILY 09/08/23 06/02/24 History omega 2-qxk-ryi-fish oil 1,000 mg 1 cap PO DAILY 09/08/23 06/02/24 History (120 mg-180 mg) capsule (Fish Oil) pravastatin 20 mg tablet 40 mg PO BEDTIME 09/08/23 06/02/24 History Allergies Allergy/AdvReac Type Severity Reaction Status Date / Time alcohol (From Mastisol AdvReac Mild RASH Verified 06/02/24 12:42 Adhesive) amlodipine AdvReac Mild UNKNOWN Verified 06/02/24 12:42 carbamazepine AdvReac Mild UNKNOWN Verified 06/02/24 12:42 divalproex sodium (From AdvReac Mild Unknown Verified 06/02/24 12:42 Depakote) gum mastic (From Mastisol AdvReac Mild UNKNOWN Verified 06/02/24 12:42 Adhesive) Hydantoins AdvReac Mild Unknown Verified 06/02/24 12:42 hydrochlorothiazide AdvReac Mild Unknown Verified 06/02/24 12:42 labetalol AdvReac Mild Unknown Verified 06/02/24 12:42 methyl salicylate (From AdvReac Mild Unknown Verified 06/02/24 12:42 Mastisol Adhesive) mometasone furoate AdvReac Mild Unknown Verified 06/02/24 12:42 nifedipine AdvReac Mild Unknown Verified 06/02/24 12:42 nitrofurantoin AdvReac Mild Unknown Verified 06/02/24 12:42 phenytoin (From Dilantin) AdvReac Mild Unknown Verified 06/02/24 12:42 sertraline AdvReac Mild Unknown Verified 06/02/24 12:42 storax (From Mastisol AdvReac Mild Unknown Verified 06/02/24 12:42 Adhesive) valproic acid AdvReac Mild Unknown Verified 06/02/24 12:42 Exam Constitutional Documenting provider has reviewed patient's vital signs: yes Common normals: no apparent distress, oriented x3, healthy appearing, alert and well nourished General appearance: cooperative HENMT Common normals: normocephalic, hearing grossly normal bilaterally and moist oral mucous membranes Head and scalp: normocephalic Eye Common normals: PERRL Pupil: PERRL Neck & C-Spine Common normals: full ROM General: normal visual inspection Chest Common normals: inspection of chest normal Respiratory Common normals: normal respiratory effort, no retractions and no use of accessory muscles Back & Pelvis Lumbar spine/lower back: ROM limited, pain with ROM, lumbar spinal tenderness Lumbar spinal tenderness location: L4 and L5 and straight leg raise negative bilaterally Extremity Common normals: normal to inspection and full ROM Neuro Common normals: oriented x3, CN's II-XII intact bilaterally, moves all extremities, no focal motor deficits, no sensory deficits noted and deep tendon reflexes 2+ bilaterally Sensorium/orientation: alert Motor exam: strength 5/5 throughout and no movement abnormalities noted Psych Common normals: mental status grossly normal, thought process normal, cooperative, affect normal, speech normal and activity/motor behavior normal Speech: normal speech Thought process: normal thought process Results Additional Findings Additional findings: T12-L1: Slight disc bulge minimally indents the ventral thecal sac. No high-grade spinal canal narrowing. Advanced right and mild left foraminal narrowing. Mild bilateral facet/ligamentum flavum hypertrophy. L1-L2: Slight disc bulge indents the ventral thecal sac. No high-grade spinal canal narrowing. Mild bilateral foraminal narrowing. Mild bilateral facet/ligamentum flavum hypertrophy. L2-L3: Slight disc bulge minimally indents the ventral thecal sac. No high-grade spinal canal narrowing. Mild bilateral foraminal narrowing. Mild bilateral facet/ligamentum flavum hypertrophy. L3-L4: Slight disc bulge and osteophytic ridging minimally indents the ventral thecal sac. Mild spinal canal narrowing. Moderate bilateral foraminal narrowing. Moderate bilateral facet/ligamentum flavum hypertrophy. L4-L5: No disc bulge or herniation. Mild to moderate spinal canal narrowing. Moderate bilateral foraminal narrowing. Advanced bilateral facet hypertrophy. L5-S1: Slight disc bulge minimally indents the ventral thecal sac. No high-grade spinal canal narrowing. Moderate bilateral foraminal narrowing. Moderate bilateral facet/ligamentum flavum hypertrophy. Suspected right hemilaminectomy changes. Assessment and Plan Assessment and Plan (1) Lumbar spondylosis: Assessment and Plan: The patient has had over 3 months of moderate to severe low back pain with functional impairment and inadequate response to conservative care including NSAIDS (unless there are contraindication such as concurrent blood thinners), multiple oral or topical pain medications, and home exercise program/physical therapy.? Patient has completed >6 weeks of guided home exercise program and/or formal physical therapy program without relief of their symptoms.? We discussed the risks and benefits of the procedure with the patient, and we are NOT planning on using sedation as outlined in the guidelines from Medicare unless there is a documented reason that sedation would be strongly recommended.?? ?The procedure will be completed with fluoroscopic guidance.? (2) Lumbar stenosis with neurogenic claudication: Assessment and Plan: >50% improvement ongoing from recent bilateral L5/S1 TFESI (3) Failed back syndrome: (4) Lumbar degenerative disc disease: (5) Sacroiliac joint dysfunction: Plan bilateral L4-5 L5-S1 MBB x2 working towards RFA for axial low back pain declining aquatherapy for generalized weakness at this time, continue HEP as tolerated. continue to utilize walker, denies falls continue medications through PCP f/u after each injection
== END 2024-06-05 11:26 | disposition home or self-care (01) ==
LOC: PM 11:26
PROVIDERS: PCP Family Medicine; Visit Provider Nurse Practitioner
DX: M47.816 Spondylosis without myelopathy or radiculopathy, lumbar region (principal); M48.062 Spinal stenosis, lumbar region with neurogenic claudication; M96.1 Postlaminectomy syndrome, not elsewhere classified; M51.369 Other intervertebral disc degeneration, lumbar region without mention of lumbar back pain or lower extremity pain; M53.3 Sacrococcygeal disorders, not elsewhere classified
CPT/HCPCS: G0463

== ENCOUNTER 2024-07-07 10:49 | Day surgery (SDC) | payer MEDICARE, SELFPAY ==
[2024-07-07 11:07] VITALS: BP 127/63; PULSE 58; TEMP 36.6; O2SAT 95
[2024-07-07 11:22] VITALS: BP 178/82; PULSE 61; O2SAT 98
[2024-07-07 11:23] VITALS: BP 189/89; PULSE 59; O2SAT 97
[2024-07-07] MEDS: LIDOCAINE HCL 2% 400 MG/20 ML MDV INJ (11:23)
[2024-07-07] MEDS: BUPIVACAINE HCL 0.25% PF 25 MG/10 ML VIAL 8 ML INJ (11:23)
--- NOTE | 2024-07-07 11:27 | W.PM.PROCNOT ---
Date of procedure: 07/07/24 Pre-op diagnosis: Pain due to lumbar spondylosis without myelopathy Post-op diagnosis: same as pre-op Procedure: Procedure: Bilateral L4-5, L5-S1 medial branch block Medications: Bupivacaine 0.25% 6cc The patient was seen and examined in the preoperative holding area.? An informed consent was obtained and placed on the chart.? The patient was brought to the medical procedure unit and placed in the prone position.? A timeout was completed verifying correct patient, procedure site, positioning, plan, and special equipment.? Using aseptic technique, the needle was placed at left L4. Under direct fluoroscopic visualization a Quincke-tipped spinal needle was advanced to the junction of the superior articulating process with the transverse process at the designated medial branch segment.? Preceded by negative aspiration, the above-mentioned injectate was placed in 1 mL aliquots.? The procedure was repeated at left L5, S1.? The needle was removed and insertion site was covered. The same procedure, at the same levels, was completed on the right side. The patient was taken to the postprocedural recovery area and monitored for an appropriate length of time before found suitable for discharge in the company of a responsible adult. Anesthesia: Local Surgeon: Anil Man Pathology: none sent Condition: stable Disposition: no change
== END 2024-07-07 11:35 | disposition home or self-care (01) ==
LOC: SURGOUT 10:50
PROVIDERS: PCP Family Medicine; Visit Provider Anesthesiology
DX: M47.816 Spondylosis without myelopathy or radiculopathy, lumbar region (principal); M54.50 Low back pain, unspecified
CPT/HCPCS: 64493; 64494; J0665

== ENCOUNTER 2024-07-09 11:21 | Outpatient (OUT) | payer MEDICARE, SELFPAY ==
--- NOTE | 2024-07-09 11:50 | PM.CN ---
Consult Note: HPI Data of Consult Patient: known to practice within the last 3 years Requesting Physician: Zuleima Valdivia NP Primary Care Provider: HARDEEP SUÁREZ Consult Narrative Reason for consult: chronic low back pain Narrative: Carly Marcelino a pleasant 83 year old female presents for evaluation and management of severe low back pain. pt has a longstanding hx of low back pain, previous lumbar surgery per pt but known type, and recently engaged in PT greater than 6 weeks without benefit. lumbar xray consistent with multilevel facet arthropathy and DDD. hx of T12 compression fx. recently underwent lumbar MRI with results below pt currently on baclofen 5mg PRN, tramadol 50-100mg TID PRN, gabapentin 300mg TID, and tylenol 325-650mg PRN with benefit without side effects. Avoids NSAIDs. CECIL 34%, moderate pain with standing, walking, ADLs, pain impacting sleep and social life/travel. Recent bilateral L4/5 L5/S1 MBB #1 and #2 with >80% improvement in pain and functional ability while anesthetized. preop pain up to 10/10, post op pain 0/10. cc:: CC: Zuleima Valdivia NP Review of Systems ROS Status of ROS 10 or more systems reviewed and unremarkable except as noted in history and below Musculoskeletal Reports: back pain PFSH PFSH Medical History Osteoarthritis ?M19.90 - Unspecified osteoarthritis, unspecified site (ICD-10) Seizure ?R56.9 - Unspecified convulsions (ICD-10) Asthma ?J45.909 - Unspecified asthma, uncomplicated (ICD-10) HTN (hypertension) ?I10 - Essential (primary) hypertension (ICD-10) Surgical History History of foot surgery ?Z98.890 - Other specified postprocedural states (ICD-10) History of total knee arthroplasty ?Z96.659 - Presence of unspecified artificial knee joint (ICD-10) History of tonsillectomy and adenoidectomy ?Z90.89 - Acquired absence of other organs (ICD-10) History of pharyngoplasty ?Z98.890 - Other specified postprocedural states (ICD-10) History of back surgery ?Z98.890 - Other specified postprocedural states (ICD-10) History of breast biopsy ?Z98.890 - Other specified postprocedural states (ICD-10) History of total shoulder replacement ?Z96.619 - Presence of unspecified artificial shoulder joint (ICD-10) Meds Home Medications and Allergies Home Medications ?Medication ?Instructions ?Recorded ?Confirmed ?Type alprazolam 0.25 mg tablet 0.5 mg PO BID PRN anxiety 09/08/23 07/07/24 History calcium carbonate (Oyster Shell 500 mg PO DAILY 09/08/23 07/07/24 History Calcium) cetirizine 10 mg tablet (24Hour 10 mg PO DAILY 09/08/23 07/07/24 History Allergy) cyanocobalamin (vitamin B-12) 1,000 mcg PO DAILY 09/08/23 07/07/24 History 1,000 mcg capsule docusate sodium 100 mg capsule 100 mg PO BID 09/08/23 07/07/24 History (Col-Rite) ferrous sulfate 325 mg (65 mg 325 mg PO DAILY 09/08/23 07/07/24 History iron) tablet (FeroSul) gabapentin 300 mg capsule 300 mg PO Q8H 09/08/23 07/07/24 History lisinopril 5 mg tablet 2.5 mg PO BEDTIME 09/08/23 07/07/24 History losartan 50 mg tablet 50 mg PO DAILY 09/08/23 07/07/24 History magnesium 200 mg tablet 400 mg PO DAILY 09/08/23 07/07/24 History metoprolol tartrate 50 mg tablet 50 mg PO BID 09/08/23 07/07/24 History (Lopressor) montelukast 10 mg tablet 10 mg PO DAILY 09/08/23 07/07/24 History omega 6-xfx-ysc-fish oil 1,000 mg 1 cap PO DAILY 09/08/23 07/07/24 History (120 mg-180 mg) capsule (Fish Oil) pravastatin 20 mg tablet 40 mg PO BEDTIME 09/08/23 07/07/24 History Allergies Allergy/AdvReac Type Severity Reaction Status Date / Time alcohol (From Mastisol AdvReac Mild RASH Verified 07/07/24 11:04 Adhesive) amlodipine AdvReac Mild UNKNOWN Verified 07/07/24 11:04 carbamazepine AdvReac Mild UNKNOWN Verified 07/07/24 11:04 divalproex sodium (From AdvReac Mild Unknown Verified 07/07/24 11:04 Depakote) gum mastic (From Mastisol AdvReac Mild UNKNOWN Verified 07/07/24 11:04 Adhesive) Hydantoins AdvReac Mild Unknown Verified 07/07/24 11:04 hydrochlorothiazide AdvReac Mild Unknown Verified 07/07/24 11:04 labetalol AdvReac Mild Unknown Verified 07/07/24 11:04 methyl salicylate (From AdvReac Mild Unknown Verified 07/07/24 11:04 Mastisol Adhesive) mometasone furoate AdvReac Mild Unknown Verified 07/07/24 11:04 nifedipine AdvReac Mild Unknown Verified 07/07/24 11:04 nitrofurantoin AdvReac Mild Unknown Verified 07/07/24 11:04 phenytoin (From Dilantin) AdvReac Mild Unknown Verified 07/07/24 11:04 sertraline AdvReac Mild Unknown Verified 07/07/24 11:04 storax (From Mastisol AdvReac Mild Unknown Verified 07/07/24 11:04 Adhesive) valproic acid AdvReac Mild Unknown Verified 07/07/24 11:04 Exam Constitutional Documenting provider has reviewed patient's vital signs: yes Common normals: no apparent distress, oriented x3, healthy appearing, alert and well nourished General appearance: cooperative HENOH Common normals: normocephalic, hearing grossly normal bilaterally and moist oral mucous membranes Head and scalp: normocephalic Eye Common normals: PERRL Pupil: PERRL Neck & C-Spine Common normals: full ROM General: normal visual inspection Chest Common normals: inspection of chest normal Respiratory Common normals: normal respiratory effort, no retractions and no use of accessory muscles Back & Pelvis Lumbar spine/lower back: ROM limited, pain with ROM, lumbar spinal tenderness Lumbar spinal tenderness location: L4 and L5 and straight leg raise negative bilaterally Extremity Common normals: normal to inspection and full ROM Neuro Common normals: oriented x3, CN's II-XII intact bilaterally, moves all extremities, no focal motor deficits, no sensory deficits noted and deep tendon reflexes 2+ bilaterally Sensorium/orientation: alert Motor exam: strength 5/5 throughout and no movement abnormalities noted Psych Common normals: mental status grossly normal, thought process normal, cooperative, affect normal, speech normal and activity/motor behavior normal Speech: normal speech Thought process: normal thought process Results Additional Findings Additional findings: T12-L1: Slight disc bulge minimally indents the ventral thecal sac. No high-grade spinal canal narrowing. Advanced right and mild left foraminal narrowing. Mild bilateral facet/ligamentum flavum hypertrophy. L1-L2: Slight disc bulge indents the ventral thecal sac. No high-grade spinal canal narrowing. Mild bilateral foraminal narrowing. Mild bilateral facet/ligamentum flavum hypertrophy. L2-L3: Slight disc bulge minimally indents the ventral thecal sac. No high-grade spinal canal narrowing. Mild bilateral foraminal narrowing. Mild bilateral facet/ligamentum flavum hypertrophy. L3-L4: Slight disc bulge and osteophytic ridging minimally indents the ventral thecal sac. Mild spinal canal narrowing. Moderate bilateral foraminal narrowing. Moderate bilateral facet/ligamentum flavum hypertrophy. L4-L5: No disc bulge or herniation. Mild to moderate spinal canal narrowing. Moderate bilateral foraminal narrowing. Advanced bilateral facet hypertrophy. L5-S1: Slight disc bulge minimally indents the ventral thecal sac. No high-grade spinal canal narrowing. Moderate bilateral foraminal narrowing. Moderate bilateral facet/ligamentum flavum hypertrophy. Suspected right hemilaminectomy changes. Assessment and Plan Assessment and Plan (1) Lumbar spondylosis: Assessment and Plan: The patient has had over 3 months of moderate to severe low back pain with functional impairment and inadequate response to conservative care including NSAIDS (unless there are contraindication such as concurrent blood thinners), multiple oral or topical pain medications, and home exercise program/physical therapy.? Patient has completed >6 weeks of guided home exercise program and/or formal physical therapy program without relief of their symptoms.? CECIL 20% with moderate to severe pain impacting ADLs, sleep, social life, travel We discussed the risks and benefits of the procedure with the patient, and we are NOT planning on using sedation as outlined in the guidelines from Medicare unless there is a documented reason that sedation would be strongly recommended.?? ?The procedure will be completed with fluoroscopic guidance.? (2) Lumbar stenosis with neurogenic claudication: Assessment and Plan: >50% improvement ongoing from recent bilateral L5/S1 TFESI (3) Failed back syndrome: (4) Lumbar degenerative disc disease: (5) Sacroiliac joint dysfunction: Plan bilateral L4-5 L5-S1 medial branch RFA for axial low back pain, will prescribe 5mg po valium 30 mins prior to procedure declining aquatherapy for generalized weakness at this time, continue HEP as tolerated. continue to utilize walker, denies falls continue medications through PCP f/u 1 month after RFA complete
== END 2024-07-09 11:22 | disposition home or self-care (01) ==
LOC: PM 11:21
PROVIDERS: PCP Family Medicine; Visit Provider Nurse Practitioner
DX: M47.816 Spondylosis without myelopathy or radiculopathy, lumbar region (principal); M48.062 Spinal stenosis, lumbar region with neurogenic claudication; M96.1 Postlaminectomy syndrome, not elsewhere classified; M51.369 Other intervertebral disc degeneration, lumbar region without mention of lumbar back pain or lower extremity pain; M53.3 Sacrococcygeal disorders, not elsewhere classified
CPT/HCPCS: G0463

== ENCOUNTER 2024-07-28 08:35 | Day surgery (SDC) | payer MEDICARE, SELFPAY ==
[2024-07-28 09:16] VITALS: BP 190/83; PULSE 63; TEMP 36.3; O2SAT 94
[2024-07-28 09:52] VITALS: BP 187/83; PULSE 62; O2SAT 98
[2024-07-28 09:57] VITALS: BP 175/64; PULSE 62; O2SAT 97
[2024-07-28] MEDS: METHYLPREDNISOLONE ACETATE 40 MG/ML VIAL 80 MG INJ (10:04)
[2024-07-28] MEDS: BUPIVACAINE HCL 0.25% PF 25 MG/10 ML VIAL 4 ML INJ (10:04)
[2024-07-28] MEDS: LIDOCAINE HCL 2% 400 MG/20 ML MDV 16 ML INJ (10:04)
--- NOTE | 2024-07-28 10:08 | P.ON_ITS ---
Date of procedure: 07/28/24 Pre-op diagnosis: Pain due to lumbar spondylosis without myelopathy Post-op diagnosis: same as pre-op Procedure: Procedure: Bilateral L4-5, L5-S1 radiofrequency ablation Medications: Bupivacaine 0.25% 6cc, lidocaine 2% 6cc, depomedrol 80mg The patient was seen and examined in the preoperative holding area.? The site was marked.? Written informed consent was obtained and placed on the chart.? The patient was brought to the medical procedure unit and placed in the prone position.? A timeout was completed verifying correct patient, procedure, positioning, and special requirements.? The skin overlying the target points, the designated medial branch, were prepped and draped in the usual sterile fashion.? The target point was achieved with a 20-gauge 15 cm with a 10 mm curved active tip radiofrequency cannula under direct fluoroscopic visualizati on.? The needle was inserted at level L4 on the right side. Needle tip position was confirmed with lateral fluoroscopic position.? Motor stimulation was carried out at 2 Hz up to 5 volts with the absence of extremity activity.? This was repeated at level L5, S1 on right side.?? Sensory stimulation was carried out.? Concordant pain was realized at the above- mentioned sites.? Then radiofrequency lesioning was carried out times 90 seconds at 80 degrees times 2 lesions at each level.? The radiofrequency probe was removed prior to cannula removal.? The above-mentioned injectate was placed in 1 mL increments.? The needle was removed. The same procedure, with the same steps, was then completed on the left side at the same levels. Insertion sites were covered.? The patient was taken to the postoperative recovery area and monitored for an appropriate length of time before being found suitable for discharge in the company of a responsible adult. Anesthesia: Local Surgeon: Anil Man Pathology: none sent Condition: stable Disposition: no change
== END 2024-07-28 10:17 | disposition home or self-care (01) ==
LOC: SURGOUT 08:36
PROVIDERS: PCP Family Medicine; Visit Provider Anesthesiology
DX: M47.816 Spondylosis without myelopathy or radiculopathy, lumbar region (principal); M54.50 Low back pain, unspecified
CPT/HCPCS: 64635; 64636; J0665; J1010

== ENCOUNTER 2024-09-03 15:07 | Outpatient (OUT) | payer MEDICARE, SELFPAY ==
--- OUTSIDE RECORDS SUMMARY | 2024-08-21 13:00 | XMS_ITS | Encounter Summary ---
Author Organization [facility] Address [address] [place] [address] Care Team Providers Care Shipper Receiver Name Role Phone Santosh Childress DO Unavailable [phone] Amado Mckenzie MD Primary Care Provider Encounter Details Date Type Department Care Team (Late st Contact Info) Description 08/21/2024 1:00 PM EDT Procedure Visit [facility] [address] [place] [address] Santosh Jhaveri DPM [address] [place] [address] Idiopathic progressive polyneuropathy (Primary Dx); Onychomycosis; Corns and callosities Social History Tobacco Use Types Packs/Day Years Used Date Smoking Tobacco: Former Cigarettes Q uit: 1983 Smokeless Tobacco: Never Alcohol Use Standard Drinks/Week Comments Never 0 (1 standard drink = 0.6 oz pur e alcohol) Comments Unknown Sex and Gender Information Value Date Recorded Sex Assigned at Not on file Legal Sex Female 6:40 PM EDT Gender Identity Not on file Sexual Orientation Not on file documented as of this encounter Last Filed Vital Signs Vital Sign Reading Time Taken Comments Blood Pressure 157/103 08/21/2024 4:29 PM EDT Pulse 54 08/21/2024 4:29 PM EDT Temperature - - Respiratory Rate - - Oxygen Saturation - - Inhaled Oxygen Concentration - - Weight - - Height - - Body Mass Index - - documented in this encounter Progress Notes * Santosh Jhaveri DPM - 08/21/2024 1:00 PM EDT Subjective Patient ID: Carly Marcelino is a 84 y.o. female who presents for toenail care. HPI heel callus tender, toes some Diabetic/Routine Nail Care: Location nails on bilateral feet. Severity of symptoms mild. Onset gradual. Status no change. Context hard to trim, hard to reach. NAILS thickened, discolored, pain. Relieved by debridement, filing down nails, clipping nails. History of ulcers/wounds no. PCP Dr Mckenzie Date of Last visit 05/26/2024 Aggravated by shoe gear, pressure. Risk factors wearing enclosed shoes Review of Systems Constitutional: Negative for chills and fever. Respiratory: Negative for shortness of breath. Cardiovascular: Negative for chest pain. Gastrointestinal: Negative for abdominal pain. Neurological: Negative for dizziness. Psychiatric/Behavioral: Negative for confusion. Current Medications Current Outpatient Medications: albuterol HFA 90 mcg/act inhaler, Inhale 2 puffs every 4 (four) hours if needed for wheezing, Disp:, Rfl: ALPRAZolam (Xanax) 0.25 MG tablet, Take 0.25 mg by mouth as needed at bedtime for anxiety, Disp: , Rfl: amoxicillin-clavulanate (Augmentin) 875-125 MG tablet, Take 1 tablet by mouth every 12 (twelve) hours (Patient not taking: Reported on 05/22/2024), Disp: , Rfl: aspirin 81 MG EC tablet, Take 81 mg by mouth Daily, Disp: , Rfl: atorvastatin (Lipitor) 10 MG tablet, Take 10 mg by mouth Daily, Disp: , Rfl: baclofen (Lioresal) 10 MG tablet, Take 5 mg by mouth in the evening. Take with meals., Disp: , Rfl: cetirizine (ZyrTEC) 10 MG tablet, Take by mouth Daily, Disp: , Rfl: citalopram (CeleXA) 10 MG tablet, Take 10 mg by mouth Daily, Disp: , Rfl: co-enzyme Q-10 30 MG capsule, Take 30 mg by mouth in the morning., Disp: , Rfl: cyclobenzaprine (Flexeril) 10 MG tablet, Take 10 mg by mouth 3 (three) times a day as needed for muscle spasms (Patient not taking: Reported on 05/22/2024), Disp: , Rfl: famotidine (Pepcid) 40 MG tablet, Take by mouth., Disp: , Rfl: ferrous sulfate 325 (65 Fe) MG tablet, Take 325 mg by mouth in the morning. Take with meals., Disp:, Rfl: gabapentin (Neurontin) 300 MG capsule, Take 300 mg by mouth in the morning and 300 mg in the evening and 300 mg before bedtime., Disp: , Rfl: gabapentin (Neurontin) 400 MG capsule, Take 300 mg by mouth in the morning and 300 mg in the evening and 300 mg before bedtime. (Patient not taking: Reported on 05/22/2024), Disp: , Rfl: levETIRAcetam (Keppra) 500 MG tablet, Take 500 mg by mouth in the morning and 500 mg in the evening., Disp: , Rfl: lisinopril 30 MG tablet, Take 30 mg by mouth Daily, Disp: , Rfl: lisinopril 5 MG tablet, Take 5 mg by mouth in the morning and 5 mg before bedtime. (Patient not taking: Reported on 05/22/2024), Disp: , Rfl: LORazepam (Ativan) 0.5 MG tablet, Take 1 tablet (0.5 mg) by mouth in the morning and 1 tablet (0.5 mg) in the evening and 1 tablet (0.5 mg) before bedtime. Do all this for 15 days., Disp: 45 tablet, Rfl: 0 LORazepam (Ativan) 0.5 MG tablet, Take 0.5 mg by mouth, Disp: , Rfl: losartan (Cozaar) 100 MG tablet, TAKE 1 TABLET BY MOUTH EVERY MORNING for hypertension, Disp: , Rfl: magnesium oxide (Mag-Ox) 400 (240 Mg) MG tablet, Take 400 mg by mouth Daily, Disp: , Rfl: magnesium oxide (Mag-Ox) 400 MG tablet, Take 400 mg by mouth in the morning. (Patient not taking: Reported on 05/22/2024), Disp: , Rfl: metoprolol succinate XL (Toprol-XL) 25 MG 24 hr tablet, Take 12.5 mg by mouth in the morning., Disp: , Rfl: metoprolol tartrate (Lopressor) 50 MG tablet, Take 50 mg by mouth in the morning and 50 mg before bedtime. (Patient not taking: Reported on 02/22/2024), Disp: , Rfl: multivitamin (Theragran) tablet, Take 1 tablet by mouth in the morning., Disp: , Rfl: nitroglycerin (Nitrostat) 0.4 MG SL tablet, Place 0.4 mg under the tongue every 5 (five) minutes ifneeded., Disp: , Rfl: pravastatin (Pravachol) 40 MG tablet, Take 40 mg by mouth at bedtime, Disp: , Rfl: triamterene-hydrochlorothiazide (Maxzide-25) 37.5-25 MG tablet, Take 1 tablet by mouth Daily (Patient not taking: Reported on 02/22/2024), Disp: , Rfl: Allergies Hydantoins, Hydrochlorothiazide, Sertraline, Carbamazepine, Mometasone furo- formoterol fum, Mometasone furoate, Amlodipine, Labetalol, Nifedipine, Nitrofurantoin, Valproic acid, and Wound dressing adhesive Surgical Histories Past Surgical History: Procedure Laterality Date ANKLE ARTHROSCOPY W/ OPEN REPAIR CORONARY STENT PLACEMENT MR ANGIOGRAM HEAD WO IV CONTRAST 05/04/2023 MR ANGIOGRAM HEAD WO IV CONTRAST 05/04/2023 Hospitalizations Family History No family history on file. Objective Foot Exam General Examination: GENERAL APPEARANCE:awake, aware of surroundings, in no acute distress. Vascular: DORSALIS PEDIS PULSE:2/4, bilaterally. POSTERIOR TIBIAL PULSE:2/4, bilaterally. TEMPERATURE GRADIENT:warm to warm. EDEMA:moderate , bilateral. VARICOSITIES:bilaterally , moderate. CAPILLARY FILLING TIME(sec):capillary fill intact bilateral digits less than 3 secs. HAIR GROWTH:absent. Neurologic: both feet, light touch/protective sensation absent. Vibratory sensation, sharp/dull and light touch are absent to the plantar foot bilateral. Loss of SWM 5.07 protective sensation to the plantar foot bilateral, all toes, into midfoot bilat. Dermatologic: SKIN FINDINGS: web spaces are clean/dry, no erythema or ecchymosis noted. HYPERKERATOSIS:pl central left heel 1cm, dark dist 3 rt atrophic skin with neg digital hair and hyperpigmentation. Orthopedic: JOINT RANGE OF MOTION:ankle joint and subtalar joint ROM are normal and pain free. DEFORMITIES:Hallux abductovalgus , Hammer toe , bilateral, ankle valgus left more. MUSCLE STRENGTH5/5 for dorsiflexion, plantarflexion, inversion, eversion. POP gr toes , rt 2 and ,mod pl centr heel, incr with DF. 0 deg. Nail Pathology: Right Foot: 1 (great toe)Long, Thick, Crumbly, Deformed, Discolored, Brittle, Dystrophic 5mm. 2Long, Thick, Crumbly, Deformed, Discolored, Brittle, Dystrophic 3mm. 3Long , Thick. Yeloow, Crumbling 4mm 4Long , Thick.yellow,crumbly 4mm 5Long , Thick. Yellow, crumbling 3mm Nail Pathology: Left Foot: 1 (great toe)Long, Thick, Crumbly, Deformed, Discolored, Brittle, Dystrophic 4mm. 2Long, Thick, Crumbly, Deformed, Discolored, Brittle, Dystrophic. 4mm 3Long , Thick.yellow, crumbling 3mm 4Long , Thick.yellow crumbling 5Long , Thick. Yellow, crumbling 3mm Modifier: -Q9. paresthesias Assessment/Plan neuropathy, callus, mycotic nails- admits not tying shoes. Slips them on everyday Nails: all thick and dystrophic nails debrided of all affected and loose material Callus: all hyperkeratotic tissue debrided to left heel sharply with a #15 blade Padding added left shoe- inlays sugg Skechers slipins with padding/inlays best sugg Rt 3 pad disp/applied, sugg every day til pain resolves documented in this encounter Plan of Treatment Upcoming Encounters Date Type Department Care Team (Late st Contact Info) Description 11/21/2024 1:15 PM EDT Procedure Visit [facility] [address] [place] [address] Santosh Jhaveri DPM [address] [place] [address] documented as of this encounter Visit Diagnoses Diagnosis Idiopathic progressive polyneuropathy- Primary Onychomycosis Dermatophytosis of nail Corns and callosities documented in this encounter Care Teams Shipper Receiver Relationship Specialty Start Date End Date Amado Mckenzie MD [address] [place] [phone] PCP - General Family Medicine 08/21/24 Santosh Childress DO Referring Physician Neurology 04/21/24 documented as of this encounter
--- OUTSIDE RECORDS SUMMARY | 2024-09-03 15:09 | XMS_ITS | Encounter Summary ---
Author Organization [facility] Address [address] [place] [facility] [place] [address] Care Team Providers Care Blade Filer Name Role Phone Amado Mckenzie MD Primary Care Provider [phone] Santosh Childress DO Unavailable [phone] Amado Mckenzie MD Primary Care Provider [phone] Encounter Details Date Type Department Care Team (Late Contact Info) Description 10/02/2023 Abstract [facility] [address] [facility] [address] [place] [phone] Unallocated, [facility], [address] [place] [address] Social History Tobacco Use Types Packs/Day Years [...] on file documented as of this encounter Plan of Treatment Upcoming Encounters Date Type Department Care Team (Late Contact Info) Description 11/21/2024 1:15 PM EDT Procedure Visit [facility] [address] [place] [address] Santosh Jhaveri DPM [address] [place] [address] documented as of this encounter Visit Diagnoses Not on filedocumented in this encounter Care Teams Blade Filer Relationship Specialty Start Date End Date Amado Mckenzie MD PCP - General Family Medicine 08/17/22 08/20/24 Amado Mckenzie MD [address] [place] [phone] PCP - General Family Medicine 08/21/24 Santosh Childress DO Referring Physician Neurology 04/21/24 documented as of this encounter
--- OUTSIDE RECORDS SUMMARY | 2024-09-03 15:09 | XMS_ITS | Encounter Summary ---
Author Organization [facility] Address [address] [place] [facility] [place] [address] Care Team Providers Care Swinging Cut Off Saw Operator Name Role Phone Amado Mckenzie MD Primary Care Provider [phone] Santosh Childress DO Unavailable [phone] Amado Mckenzie MD Primary Care Provider [phone] Encounter Details Date Type Department Care Team (Late Contact Info) Description 10/10/2023 Abstract [facility] [address] [facility] [address] [place] [phone] Unallocated, [facility], [address] [place] [address] Social History Tobacco Use Types Packs/Day Years [...] Procedure Visit [facility] [address] [place] [address] Santosh Jhaveri DPM [address] [place] [address] documented as of this encounter Visit Diagnoses Not on filedocumented in this encounter Care Teams Swinging Cut Off Saw Operator Relationship Specialty Start Date End Date Amado Mckenzie MD PCP - General Family Medicine 08/17/22 08/20/24 Amado Mckenzie MD [address] [place] [phone] PCP - General Family Medicine 08/21/24 Santosh Childress DO Referring Physician Neurology 04/21/24 documented as of this encounter
--- OUTSIDE RECORDS SUMMARY | 2024-09-03 15:09 | XMS_ITS | Encounter Summary ---
Author Organization [facility] Address [address] [place] [address] Care Team Providers Care Rug Washer Name Role Phone Amado Mckenzie MD Primary Care Provider [phone] Santosh Childress DO Unavailable [phone] Amado Mckenzie MD Primary Care Provider [phone] Encounter Details Date Type Department Care Team (Late Contact Info) Description 09/27/2023 Abstract [facility] [address] [facility] [address] [place] [phone] Unallocated, [facility], [address] [place] [address] Social History Tobacco Use Types Packs/Day Years [...] Procedure Visit [facility] [address] [place] [address] Santosh Jhaveri DPM [address] [place] [address] documented as of this encounter Visit Diagnoses Not on filedocumented in this encounter Care Teams Rug Washer Relationship Specialty Start Date End Date Amado Mckenzie MD PCP - General Family Medicine 08/17/22 08/20/24 Amado Mckenzie MD [address] [place] [phone] PCP - General Family Medicine 08/21/24 Santosh Childress DO Referring Physician Neurology 04/21/24 documented as of this encounter
--- OUTSIDE RECORDS SUMMARY | 2024-09-03 15:09 | XMS_ITS | Encounter Summary ---
Author Organization [facility] Address [address] [place] [address] Care Team Providers Care Tufter Name Role Phone Santosh Childress DO Unavailable [phone] Amado Mckenzie MD Primary Care Provider Encounter Details Date Type Department Care Team (Late Contact Info) Description 08/21/2024 Bamboo flowsheet [facility] [address] [place] [id number] Santosh Jhaveri DPM [address] [place] [address] Social History Tobacco Use Types Packs/Day Years [...] Procedure Visit [facility] [address] [place] [phone] Santosh Jhaveri DPM [address] [place] [address] documented as of this encounter Visit Diagnoses Not on filedocumented in this encounter Care Teams Tufter Relationship Specialty Start Date End Date Amado Mckenzie MD [address] [place] [phone] PCP - General Family Medicine 08/21/24 Santosh Childress DO Referring Physician Neurology 04/21/24 documented as of this encounter
--- OUTSIDE RECORDS SUMMARY | 2024-09-03 15:09 | XMS_ITS | Encounter Summary ---
Author Organization [facility] Address [address] [place] [address] Care Team Providers Care Orthodontic Band Maker Name Role Phone Santosh Childress DO Unavailable [phone] Amado Mckenzie MD Primary Care Provider Encounter Details Date Type Department Care Team (Latest Contact Info) Description 08/21/2024 Travel Social History Tobacco Use Types Packs/Day Years Used Date Smoking Tobacco: Former Cigarettes Q uit: 1982 Smokeless Tobacco: Never Alcohol Use Standard Drinks/Week [...] Procedure Visit [facility] [address] [place] [phone] Santosh Jhaveri DPBrittany [address] [place] [address] documented as of this encounter Visit Diagnoses Not on filedocumented in this encounter Care Teams Orthodontic Band Maker Relationship Specialty Start Date End Date Amado Mckenzie MD [address] [place] [phone] PCP - General Family Medicine 08/21/24 Santosh Childress DO Referring Physician Neurology 04/21/24 documented as of this encounter
--- OUTSIDE RECORDS SUMMARY | 2024-09-03 15:09 | XMS_ITS | Clinical Summary ---
Author Organization [facility] Address [address] [place] [address] Phone Care Team Providers Care Real Estate Accountant Name Role Phone Amado Mckenzie DO Primary Care Provider [phone] Allergies Active Allergy Reactions Criticality Noted Date Comments Carbamazepine Unknown 12/29/2022 Labetalol Unknown 12/29/2022 Nifedipine Unknown 12/29/2022 Phenytoin Unknown 12/29/2022 Valproic Acid Unknown 12/29/2022 Medications metoprolol tartrate (Lopressor) 25 mg tablet Take 0.5 tablets (12.5 mg) by mouth 2 times a day. Active omega 0-hwy-idl-fish oil (Fish OiL) 300-1,000 mg capsule,delayed release(DR/EC) Take 1 capsule by mouth once daily. 12/22/2021 Active magnesium oxide (Mag-Ox) 400 mg tablet Take 1 tablet (400 mg) by mouth once daily. Active lisinopril 2.5 mg tablet Take 1 tablet (2.5 mg) by mouth 2 times a day. 06/12/2022 Active gabapentin (Neurontin) 300 mg capsule Take 1 capsule (300 mg) by mouth 3 times a day. Active famotidine (Pepcid) 40 mg tablet Take 1 tablet (40 mg) by mouth once daily. Active baclofen (Lioresal) 5 mg tablet Take 1 tablet (5 mg) by mouth once daily. Active therapeutic multivitamin-ir on-minerals (Theragran-M) tablet Take 1 tablet by mouth once daily. Active Active Problems Problem Noted Date Diagnosed Date Benign essential hypertension 12/29/2022 Bilateral carotid artery stenosis 12/29/2022 Hyperlipidemia 12/29/2022 Post PTCA 12/29/2022 Single vessel coronary disease 12/29/2022 Social History Tobacco Use Types Packs/Day Years Used Date Smoking Tobacco: Never Assessed Comments Unknown Sex and Gender Information Value Date Recorded Sex Assigned at Not on file Legal Sex Female 11:47 AM EST Gender Identity Not on file Sexual Orientation Not on file Last Filed Vital Signs Vital Sign Reading Time Taken Comments Blood Pressure 150/88 08/23/2022 11:59 AM EDT Pulse 62 08/23/2022 11:59 AM EDT Temperature - - Respiratory Rate - - Oxygen Saturation - - Inhaled Oxygen Concentration - - Weight 85.3 kg (188 lb) 08/23/2022 11:59 AM EDT Height 170.2 cm (5' 7 ) 08/23/2022 11:59 AM EDT Body Mass Index 29.44 08/23/2022 11:59 AM EDT Plan of Treatment Health Maintenance Due Date Last Done Comments Bone Density Scan 1940 Lipid Panel 1939 Skin Cancer Screening 1940 DTaP/Tdap/Td Vaccines (1 - Tdap) 07/06/1961 Zoster Vaccines (1 of 2) 07/06/1989 RSV High Risk: (Elderly (60+ ) or Population) (1 - 1-dose 75+ series) 07/06/2014 Medicare Annual Wellness Vis it (AWV) 12/21/2018 12/20/2017, 05/30/2016 Pneumococcal Vaccine (2 of 2 - PCV) 04/04/2020 04/04/2019 COVID-19 Vaccine (1 - 2023-2 5 season) 2023 Influenza Vaccine (Season Ended) 2024 HIB Vaccines Aged Out No longer eligi ble based on patient's age to complete this topic HPV Vaccines (No Doses Required) Completed Hepatitis A Vaccines Aged Out No long er eligible based on patient's age to complete this topic Hepatitis B Vaccines Aged Out No long er eligible based on patient's age to complete this topic IPV Vaccines Aged Out No longer eligi ble based on patient's age to complete this topic Meningococcal Vaccine Aged Out No parviz afua eligible based on patient's age to complete this topic Rotavirus Vaccines Aged Out No longer eligible based on patient's age to complete this topic Insurance MEDICARE PART A AND B Care Teams Real Estate Accountant Relationship Specialty Start Date End Date Amado Mckenzie DO [address] [place] [address] PCP - General 03/12/99
--- OUTSIDE RECORDS SUMMARY | 2024-09-03 15:10 | XMS_ITS | Clinical Summary ---
Author Organization [facility] Address [address] [place] [address] Care Team Providers Care Centralized Traffic Control Operator Name Role Phone Amado Mckenzie Primary Care Provider [phone] Allergies Active Allergy Reactions Criticality Noted Date Comments Divalproex Sodium Other (See Comments) 12/15/19 19 Fine motor tremors Phenytoin Sodium Extended Anaphylaxis High 12/14/2018 Labetalol Other (See Comments) 12/14/2018 Intolerance Amlodipine 12/14/2018 intolterance Nifedipine 12/14/2018 intolerance Carbamazepine Itching 12/14/2018 Medications baclofen (LIORESAL) 10 MG tablet Take 10 mg by mouth daily I/2 tab in the evening Active zafirlukast (ACCOLATE) 20 MG tablet Take 20 mg by mouth 2 times daily Active gabapentin (NEURONTIN) 300 MG capsule Take 300 mg by mouth 3 times daily. Active magnesium oxide (MAG-OX) 400 MG tablet Take 400 mg by mouth daily In the evening Active cetirizine (ZYRTEC) 10 MG tablet Take 10 mg by mouth daily Active Active Problems Problem Noted Date Diagnosed Date Wound infection: Left knee status post hematoma evacuation 12/18/2018 Anemia, normocytic normochromic 12/16/2018 Hypocalcemia 12/16/2018 Hypoalbuminemia 12/16/2018 LALY (acute kidney injury) 12/16/2018 Essential hypertension 12/15/2018 Normocytic anemia 12/15/2018 At risk for malnutrition 12/15/2018 Open wound of left knee 12/15/2018 Traumatic hematoma of knee, left, sequela 2018 Left leg cellulitis: Seconda ry to wound infection following hematoma evacuation 12/14/2018 Resolved Problems Problem Noted Date Diagnosed Date Resolved Date Fall 12/15/2018 01/14/2019 Immunizations Immunization Administration Dates Next Due Influenza, FLUARIX, FLULAVAL , FLUZONE (age 6 mo+) and AFLURIA, (age 3 y+), Quadv PF, 0.5mL 12/15/2018 Social History Tobacco Use Types Packs/Day Years Used Date Smoking Tobacco: Former Cigarettes Q uit: 1977 Smokeless Tobacco: Never Comments Unknown Sex and Gender Information Value Date Recorded Sex Assigned at Not on file Legal Sex Female 11:25 PM EST Gender Identity Not on file Sexual Orientation Not on file Last Filed Vital Signs Vital Sign Reading Time Taken Comments Blood Pressure 138/64 12/18/2018 8:21 AM EDT Pulse 66 12/18/2018 8:21 AM EDT Temperature 36.6 C (97.9 F) 12/18/2018 8:21 AM EDT Respiratory Rate 15 12/18/2018 8:21 AM EDT Oxygen Saturation 98% 12/18/2018 8:21 AM EDT Inhaled Oxygen Concentration - - Weight 89.3 kg (196 lb 12.8 oz) 12/18/2018 6:00 AM EDT Height 167.6 cm (5' 6 ) 12/14/2018 11:1 5 PM EDT Body Mass Index 31.76 12/14/2018 11:15 PM EDT Plan of Treatment Not on file Insurance MEDICARE [employer] MEDICARE SUPP Advance Directives * Full Code (Latest Code Status on File) Date Activated Date Inactivated Comments 12/14/2018 11:15 PM 12/18/2018 8:39 PM Care Teams Centralized Traffic Control Operator Relationship Specialty Start Date End Date Amado Mckenzie DO PCP - General Family Medicine 12/15/18
--- OUTSIDE RECORDS SUMMARY | 2024-09-03 15:10 | XMS_ITS | Clinical Summary ---
Author Organization [facility] Address [address] [place] [id number] Care Team Providers Care Security Control Assessor Name Role Phone Amado Mckenzie Primary Care Provider [phone] Allergies Active Allergy Reactions Criticality Noted Date Comments Adhesive Rash Low 09/11/2011 Adhesive Tape (Rosins) Rash 09/11/2011 Amlodipine Unknown Low 11/06/2012 intolterance Carbamazepine Itching 05/01/2003 Tegretal caused itching Divalproex Sodium Intolerance 12/14/2018 Fine motor tremors Mometasone-Formoterol Intolerance 09/15/2014 Falls Hydantoins Anaphylaxis High 05/01/2003 throat swells ,hives Hydrochlorothiazide Unknown High 07/29/2023 Labetalol Unknown Low 11/06/2012 Intolerance Nifedipine Unknown Low 11/06/2012 intolerance Nitrofurantoin Rash Low 04/30/2023 across nose/ cheeks Phenytoin Anaphylaxis High 11/06/2012 Valproic Acid Intolerance Low 11/06/2012 Valproic Acid Analogues 05/01/2003 tremors Medications gabapentin (NEURONTIN) 300 mg capsuleIndication s:Rash Take 300 mg by mouth three times daily. Active Cholecalciferol, Vitamin D3, (VITAMIN D-3) 2,000 unit cap Take by mouth once daily. Active docusate sodium (COLACE) 100 mg capsule Take 100 mg by mouth once daily. as needed Active magnesium oxide 400 mg cap Take by mouth once daily. Active B Complex Vitamins capsule Take 1 capsule by mouth once daily. Active losartan (COZAAR) 100 mg tablet Take 100 mg by mouth once daily. Active baclofen (LIORESAL) 10 mg tablet Baclofen Baclofen Active 5 MG Oral Daily at bedtime August 01, 2017 3:16pm 08-01-2017 [facility] ([id number]) 8 Active cetirizine 10 mg ODT Cetirizine Cetirizine Active 10 MG Oral Daily August 01, 2017 3:16pm 08-01-2017 [facility] ([id number]) 8 Active omega 2-byp-mlr-fish oil (FISH OIL) 100-160-1,000 mg cap Take by mouth. 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 1 Active acetaminophen (TYLENOL) 325 mg tablet 2 tablets by ORAL/FEEDING TUBE route every 4 hours as needed for pain. 4 Active aspirin 81 mg chewable tablet 1 tablet by ORAL/FEEDING TUBE route once daily. 90 tablet 1 4 Active metoprolol tartrate, short acting, (LOPRESSOR) 25 mg tablet Take 1/2 tablet by mouth every 12 hours. 30 tablet 05/07/2023 12:41 PM EST 4 Active pravastatin (PRAVACHOL) 40 mg tablet Take 1 tablet by mouth daily at bedtime. 30 tablet 05/07/2023 12:41 PM EST 4 Active triamterene-hydro CHLOROthiazide (DYAZIDE) 37.5-25 mg per capsule Take 1 capsule by mouth once daily. 4 Active albuterol HFA (PROVENTIL HFA, VENTOLIN HFA) 90 mcg/actuation inhaler Inhale 2 Puffs as instructed every 4 hours as needed. Active ALPRAZolam (XANAX) 0.25 mg tablet Take 1 tablet by mouth every 12 hours. 4 Active DOCOSAHEXAENOIC ACID ORAL Take 1 capsule by mouth once daily. 2 Active ferrous sulfate 325 mg (65 mg iron) tablet Take 325 mg by mouth. 2 Active nitroglycerin sublingual (NITROQUICK) 0.4 mg SL tablet DISSOLVE 1 TABLET UNDER THE TONGUE NEEDED FOR CHEST PAIN- MAY REPEAT EVERY 5 MINUTES IF NEEDED ( MAX 3 DOSES.- IF NO RELIEF CALL 911) 4 Active gabapentin (NEURONTIN) 400 mg capsule Take 300 mg by mouth. 3 Active levETIRAcetam XR (KEPPRA XR) 500 mg 24 hr tablet Take 1 tablet by mouth daily at bedtime. 90 tablet 3 4 Active spironolactone (ALDACTONE) 25 mg tablet Take 1 tablet by mouth every afternoon. 4 Active amoxicillin-clavu lanate potassium (AUGMENTIN) 875-125 mg per tablet 4 Active famotidine (PEPCID) 40 mg tablet Take 40 mg by mouth daily at bedtime. 4 Active Carboxymethylcell ulose-Glycern (OPTIVE) 0.5-0.9 % drop Use 1 Drop in both eyes three times a day. 15 mL 5 4 Active Active Problems Problem Noted Date Diagnosed Date Nonspecific abnormal electroencephalogram (EEG) 06/17/2023 Morbid obesity 06/17/2023 History of DVT (deep vein thrombosis) 05/06/2023 Lymphedema 05/06/2023 Cerebral amyloid angiopathy (CODE) 05/06/2023 Anticoagulation management encounter 05/06/2023 Cerebral amyloid angiopathy 05/05/2023 SAH (subarachnoid hemorrhage) 05/03/2023 Assessment & Plan (05/04/2023 8:04 AM EST): Began 05/03 in the morning, no previous hx of bleeds, no trauma, no family hx of bleeds or aneurysms. Plan: MRI/MRA MRI cervical spine SBP <160 - home losartan, metoprolol tartrate and PRN, holding home HCTZ NC Q4H Hold AC/AP NSGY recs Assessment & Plan (05/03/2023 3:34 PM EST): Began 05/03 in the morning, no previous hx of bleeds, no trauma, no family hx of bleeds or aneurysms Plan: MRI/MRA CT cervical spine to assess for cervical trauma SBP <160 - home losartan and PRN, holding home HCTZ NC Q1H Hold AC/AP NSGY recs DVT (deep venous thrombosis) 05/03/2023 Assessment & Plan (05/03/2023 4:14 PM EST): Hx of DVT on eliquis (06/2022). Previously on low dose eliquis 2.5 mg BID. 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 Per patient last seizure was years ago . Does not follow with neurology as outpatient. Review of med list shows that she is not on any AED as outpatient (has allergy to multiple AED). 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 Unknown when last seizure was. On AED as outpatient (has allergy to multiple AED). Low suspicion for acute seizure Plan - Keppra 750 BID Primary hypertension 05/03/2023 Assessment & Plan (05/04/2023 9:57 AM EST): Assessment: home antiHTN losartan and HCTZ. On losartan 100 mg however her home dose is 25 mg daily Plan: - BP goal as above - losartan, metoprolol tartrate - hold HCTZ Assessment & Plan (05/03/2023 4:15 PM EST): Assessment: home antiHTN losartan and HCTZ Plan: - BP goal as above - losartan - hold HCTZ Coronary artery disease invo [place] coronary artery of [place] heart without angina pectoris 05/03/2023 Assessment & Plan (05/04/2023 9:58 AM EST): Assessment: hx of CAD c/b NSTEMI 11/2021 with LETICIA to RCA. Follows with cardiology, per outpatient note patient was recommended to be on indefinite clopidogrel. Last [facility] 11/2021 noting significant calcification in LCx and LAD. - BB: metoprolol tartrate 12.5 BID - Statin: pravastatin (previous intolerance to high intensity statin) - AP: clopidogrel - lipid panel LDL-c 59 - Hgb A1c 4.9% Plan: - holding clopidogrel - continue metoprolol 12.5 mg BID - pravastatin 40 mg daily, goal LDL-c ideally < 55 Assessment & Plan (05/03/2023 3:44 PM EST): Assessment: hx of CAD c/b NSTEMI 11/2021 with LETICIA to RCA. Follows with cardiology, per outpatient note patient was recommended to be on indefinite clopidogrel. Last [facility] 11/2021 noting significant calcification in LCx and LAD. - BB: metoprolol tartrate 12.5 BID - Statin: pravastatin (previous intolerance to high intensity statin) - AP: clopidogrel Plan: - holding clopidogrel - continue metoprolol 12.5 mg BID - pravastatin 40 mg daily - repeat lipid panel pending - HgbA1c pending Mixed hyperlipidemia 05/03/2023 Assessment & Plan (05/04/2023 9:58 AM EST): Plan - pravastatin Assessment & Plan (05/03/2023 3:45 PM EST): Plan - pravastatin Sciatica of right side 05/03/2023 Assessment & Plan (05/04/2023 9:58 AM EST): Assessment: previous hx of R sided sciatica with R LE weakness. Appreciated on admission physical exam. - home baclofen and gabapentin Plan - baclofen - gabapentin Assessment & Plan (05/03/2023 3:52 PM EST): Assessment: previous hx of R sided sciatica with R LE weakness. Appreciated on admission physical exam. - home baclofen and gabapentin Plan - baclofen - gabapentin Uncomplicated asthma 05/03/2023 Assessment & Plan (05/03/2023 3:53 PM EST): Assessment: hx of asthma, no PFT in EMR. No rescue inhaler per recent dispense report. Hx of montelukast. Not in exacerbation on arrival Plan - montelukast HORTENSIA (iron deficiency anemia) 05/03/2023 Assessment & Plan (05/03/2023 3:58 PM EST): Assessment: on iron tablets as outpatient. Hgb on arrival 12.8. no iron studies. Unknown last C-scope. 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 Right hand tendonitis 07/19/2017 Plantar fasciitis 10/15/2014 Difficulty walking 10/15/2014 Pain in left foot 10/15/2014 Heel pain, chronic 10/15/2014 Heel spur 10/15/2014 Rotator cuff tear arthropathy of both shoulders 05/25/2014 Glenohumeral arthritis 05/25/2014 ANKLE INSTABILITY 01/01/2012 DERANGEMENT ANKLE/FOOT 01/01/2012 Difficulty in walking(719.7) 01/01/2012 LOOSE BODY ANKLE/FOOT 01/01/2012 Follow-up examination, following unspecified teo daniel 01/01/2012 Fitting and adjustment of orthopedic device 09/09 Complete rupture of rotator cuff 05/01/2003 Family History Medical History Relation Comments Cancer Brother 2 colon; survivor x 10 yrs thus far. doing well Cataract Brother 2 Cancer Father prostate with olga ne mets Cataract Father Breast Cancer Mother with mets Cataract Mother No Ocular Disease No Family History nothing know n of Relation Status Comments Brother 1 Alive Brother 2 Father Mother Social History Tobacco Use Types Packs/Day Years Used Date Smoking Tobacco: Former Cigarettes 0.5 10 1 967 - 1976 Smokeless Tobacco: Never Tobacco Cessation:Counseling Given: Not Answered Alcohol Use Standard Drinks/Week Comments Yes 0 (1 standard drink = 0.6 oz pure alcohol) occasional beer when mowing grass on hot day [facility] Utilities Answer Date Recorded In the past 12 months has th e electric, gas, oil, or water company threatened to shut off services in your home? No 05/04/2023 AUDIT-C Answer Date Recorded Q1: How often do you have a drink containing alc ohol? Monthly or less 02/13/2020 Q2: How many drinks containi ng alcohol do you have on a typical day when you are drinking? 1 or 2 02/13/2020 Q3: How often do you have si x or more drinks on one occasion? Never 02/13/2020 Overall Financial Resource Strain (CARDIA) Answe r Date Recorded How hard is it for you to pa y for the very basics like food, housing, medical care, and heating? Not hard at all 05/04/2023 Hunger Vital Sign Answer Date Recorded Within the past 12 months, y ou worried that your food would run out before you got the money to buy more. Never true 05/04/19 24 Within the past 12 months, t he food you bought just didn't last and you didn't have money to get more. Never true 05/04/2023 PRAPARE - Transportation Answer Date Re corded In the past 12 months, has l ack of transportation kept you from medical appointments or from getting medications? No 04/13 In the past 12 months, has l ack of transportation kept you from meetings, work, or from getting things needed for daily living? No 05/04/2023 Housing Stability Vital Sign Answer Andi e Recorded In the last 12 months, was t here a time when you were not able to pay the mortgage or rent on time? No 05/04/2023 Number of Places Lived in the Last Year Not on f ile 05/04/2023 In the last 12 months, was t here a time when you did not have a steady place to sleep or slept in a mcc (including now)? No 05/04/2023 Area Deprivation Index Answer Date Alexei rded National Score (1-100), lower number is lower ri sk 65 05/25/2023 State Score (1-10), lower number is lower risk 4 05/25/2023 Data from: https://www.neighborhoodatlas.medicine.[facility].edu/. Last address used for calculation [address] 05/25/2023 Comments No Sex and Gender Information Value Date Recorded Sex Assigned at Not on file Legal Sex Female 9:44 AM EST Gender Identity Not on file Sexual Orientation Not on file Last Filed Vital Signs Vital Sign Reading Time Taken Comments Blood Pressure 141/56 07/06/2023 1:07 PM EDT Pulse 61 07/06/2023 1:07 PM EDT Temperature 36.3 C (97.3 F) 07/06/2023 1:07 PM EDT Respiratory Rate 14 07/06/2023 1:07 PM EDT Oxygen Saturation 97% 07/06/2023 1:07 PM EDT Inhaled Oxygen Concentration - - Weight 86.2 kg (190 lb) 07/06/2023 1:07 PM EDT Height 170.2 cm (5' 7 ) 07/06/2023 1:07 PM EDT Body Mass Index 29.76 07/06/2023 1:07 PM EDT Plan of Treatment Upcoming Encounters Date Type Department Care Team (Late st Contact Info) Description 09/26/2024 3:30 PM EDT Office Visit [facility] Ophthalmology [address] [place] [address] Tiff Aguilera, OD [address] [place] [address] 1 year full, mac OCT Health Maintenance Due Date Last Done Comments Anxiety Screening 07/06/1958 Depression Screening 07/06/1958 Shingrix Vaccine (1 of 2) 07/06/1989 Medicare Annual Wellness Visit 06/11/2003 Bone Density Screening 07/06/2004 RSV Vaccine (1 - 1-dose 75+ series) 07/06/2014 Covid-19 Vaccine (3 - 2023-2 5 season) 2023 05/04/2020, 04/03/2020 Advance Directive Discussion 03/12/2024 LDL Cholesterol 05/03/2024 05/03/2023 Influenza Vaccine (Season Ended) 2024 02/09/2021, 02/04/2020, 12/17/2019, Additional history exists Diabetes Screening 08/22/2026 08/23/2023, 0 08/23/2023, 08/22/2023, Additional history exists DTaP,Tdap,Td Vaccine (5 - Td or Tdap) 02/23/2031 02/23/2021, 06/18/2017, 12/05/2013, Additional history exists Pneumococcal Vaccine: 50+ Completed 04/04/2019, 07/2014 Medical Devices Implanted Type Area Shell Fisherman Device Identifier Shelf Expiration Date Model / Serial / Lot Lens Iol 0d +21.5 Enrike Uv Abs - [id number] Implanted:Qty : 1 on 02/20/2020 at [facility] Intraocular Lens Right: Eye [facility] 10/13/2024 [id number] / [id number] / Description:-0.46 Procedures Procedure Name Priority Date/Time Associated Diagnosis Comments COMPREHENSIVE METABOLIC PANEL Routine 05/07/2023 11:13 AM EST LIPID-LIPO PANEL 1 Routine 05/03/2023 1: 23 PM EST from Last 3 Months or Most Recently Relevant to Health Maintenance Results * (ABNORMAL) COMP METABOLIC PANEL (05/07/2023 11:13 AM EST) Protein, Total 6.3 6.3 - 8.0 g/dL 05/07/2023 1:06 PM [facility] Albumin 3.7(L) 3.9 - 4.9 g/dL 05/07/2023 1:06 PM EST [facility] Calcium, Total 9.3 8.5 - 10.2 mg/dL 05/07/2023 1:06 PM EST [facility] Bilirubin, Total 0.4 0.2 - 1.3 mg/dL 05/07/2023 1:06 PM [facility] Alkaline Phosphatase 55 34 - 123 U/L 05/07/2023 1:06 PM [facility] AST 15 13 - 35 U/L 05/07/2023 1:06 PM [facility] ALT 9 7 - 38 U/L 05/07/2023 1:06 PM [facility] Glucose 91 74 - 99 mg/dL 05/07/2023 1:06 PM [facility] Comment: The [place] Diabetes Association (ADA) provides guidance for cutoff [...] Standards of Medical Care in Diabetes 2016, [place] Diabetes Association. Diabetes Care. 2016.39(Suppl 1). BUN 19 7 - 21 mg/dL 05/07/2023 1:06 PM [facility] Creatinine 0.73 0.58 - 0.96 mg/dL 05/07/2023 1:06 PM [facility] Sodium 134(L) 136 - 144 mmol/L 05/07/2023 1:06 PM [facility] Potassium 4.1 3.7 - 5.1 mmol/L 05/07/2023 1:06 PM [facility] Chloride 99 97 - 105 mmol/L 05/07/2023 1:06 PM [facility] CO2 24 22 - 30 mmol/L 05/07/2023 1:06 PM [facility] Anion Gap 11 9 - 18 mmol/L 05/07/2023 1:06 PM [facility] Estimated Glomerular Filtration Rate 82 >=60 mL/min/1.7 3m 05/07/2023 1:06 PM [facility] Comment:Estimated Glomerular Filtration Rate (eGFR) is calculated using the 2020 CKD-EPI creatinine equation. This equation utilizes serum creatinine, sex, and age as parameters. The creatinine assay has traceable calibration to isotope dilution- mass spectrometry. Refer to KDIGO guidelines for clinical interpretation. In patients with unstable renal function, e.g. those with acute kidney injury, the eGFR may not accurately reflect actual GFR. Blood BLOOD SPECIMEN / Unknown Venipuncture / Unknown 05/07/2023 11:13 AM EST 05/07/2023 11:56 AM EST us Key Muñoz MD LABORATORY Final Result [facility] [address] [address], * LIPID PANEL, NONFASTING (05/03/2023 1:23 PM EST) Total Cholesterol, Nonfasting 125 <200 mg/dL 05/03/2023 2:11 PM EST [facility] Comment: <200 mg/dL, Desirable 200-239 mg/dL, Borderline high >239 mg/dL, High Triglycerides, Nonfasting 136 <150 mg/dL 05/03/2023 2:11 PM EST [facility] Comment: <150 mg/dL, Normal 150-199 mg/dL, Borderline high 200-499 mg/dL, High >499 mg/dL, Very high HDL Cholesterol, Nonfasting 40 >39 mg/dL 05/03/2023 2:11 PM EST [facility] Comment: 40-59 mg/dL, Acceptable >59 mg/dL, High: Negative risk factor for coronary heart disease <40 mg/dL, Low: Positive risk factor for coronary heart disease LDL Cholesterol Calculated, Nonfasting 58 <100 mg/dL 05/03/2023 2:11 PM EST [facility] Comment: <100 mg/dL, Optimal 100-129 mg/dL, Near optimal/above optimal 130-159 mg/dL, Borderline high 160-189 mg/dL, High >189 mg/dL, Very high Secondary prevention optimal LDL Cholesterol levels are recommended to be < 70 mg/dL Non HDL Cholesterol, Nonfasting 85 <130 mg/dL 05/03/2023 2:11 PM EST [facility] Comment: <130 mg/dL, Optimal 130-159 mg/dL, Near optimal/above optimal 160-189 mg/dL, Borderline high 190-219 mg/dL, High >219 mg/dL, Very high Secondary prevention optimal non HDL Cholesterol levels are recommended to be <100 mg/dL VLDL Cholesterol, Nonfasting 27 <30 mg/dL 05/03/2023 2:11 PM EST [facility] Total Chol/HDL Ratio, Nonfasting 3.13 <5.10 mg/dL 05/03/2023 2:11 PM EST [facility] LDL/HDL Ratio, Nonfasting 1.45 <2.54 mg/dL 05/03/2023 2:11 PM EST [facility] Comment: Reference: 1. National Cholesterol Education Program ATP III Guideline At-A-Glance Quick Desk Reference: National Heart, Lung, and Blood Nada. National Institutes of Health. 2001: NIH Publication No. 01-3305. 2. An International Atherosclerosis Society position paper: global recommendations for the management of dyslipidemia: executive summary, Atherosclerosis. 2014: 232(2):410-413. Blood BLOOD SPECIMEN / Unknown Venipuncture / Unknown 05/03/2023 1:23 PM EST 05/03/2023 1:30 PM EST us Samer Fili [facility] Final Result [facility] [address] [facility] [place] [address], from Last 3 Months or Most Recently Relevant to Health Maintenance Insurance MEDICARE [employer] SUPPLEMENT [facility] Address: [address] [address] [place] [address] Advance Directives Documents on File Type Date Recorded Patient Occupational Therapy Program Director Expl anation Advance Directive(s) 02/20/2020 8:50 AM * Full Code (Latest Code Status on File) Date Activated Date Inactivated Comments 05/03/2023 1:50 PM 05/07/2023 6:27 PM Question Answer Comments Full Code Order Discussed With: Patient Care Teams Security Control Assessor Relationship Specialty Start Date End Date Amado Mckenzie DO [address] [place] [id number] PCP - General Family Medicine 07/05/15
--- OUTSIDE RECORDS SUMMARY | 2024-09-03 15:10 | XMS_ITS | Clinical Summary ---
Author Organization [facility] Address [address] [place] [address] Care Team Providers Care Crisis Therapist Name Role Phone MonroeDavidliaabigail DO Unavailable [phone] Amado Mckenzie MD Primary Care Provider [phone] Allergies Active Allergy Reactions Criticality Noted Date Comments Amlodipine Unknown Low 11/06/2012 intolterance Carbamazepine Itching 05/01/2003 Tegretal caused itching Hydantoins Anaphylaxis,Unknow n High 05/01/2003 throat swells ,hives Hydrochlorothiazide Unknown,Other High 07/29/2023 Other Reaction(s): Hyponatremia Labetalol Unknown Low 11/06/2012 Other Reaction(s): Other (See Comments) Intolerance Mometasone Furo-Formoterol Fum GI intolerance 09/15/2014 Falls Mometasone Furoate Other 01/22/2024 Nifedipine Unknown Low 11/06/2012 intolerance Nitrofurantoin Rash Low 04/30/2023 Other Reaction(s): rash across nose/ cheeks across nose/ cheeks Sertraline Other High 07/16/2023 insomnia Valproic Acid Unknown Low 05/01/2003 Fine motor tremors Other reaction(s): AOF tremors Wound Dressing Adhesive Rash Low 09/11/2011 Medications magnesium oxide (Mag-Ox) 400 MG tablet Take 400 mg by mouth in the morning. Active metoprolol succinate XL (Toprol-XL) 25 MG 24 hr tablet Take 12.5 mg by mouth in the morning. 2 Active nitroglycerin (Nitrostat) 0.[address] 0.4 mg under the tongue every 5 (five) minutes if needed. 3 Active baclofen (Lioresal) 10 MG tablet Take 5 mg by mouth in the evening. Take with meals. Active famotidine (Pepcid) 40 MG tablet Take by mouth. Activ e ferrous sulfate 325 (65 Fe) MG tablet Take 325 mg by mouth in the morning. Take with meals. Active multivitamin (Theragran) tablet Take 1 tablet by mouth in the morning. Active lisinopril 5 MG tablet Take 5 mg by mouth in the morning and 5 mg before bedtime. 3 Active gabapentin (Neurontin) 400 MG capsule Take 300 mg by mouth in the morning and 300 mg in the evening and 300 mg before bedtime. 3 Active albuterol HFA 90 mcg/act inhaler Inhale 2 puffs every 4 (four) hours if needed for wheezing Active co-enzyme Q-10 30 MG capsule Take 30 mg by mouth in the morning. Active levETIRAcetam (Keppra) 500 MG tablet Take 500 mg by mouth in the morning and 500 mg in the evening. 4 Active losartan (Cozaar) 100 MG tablet TAKE 1 TABLET BY MOUTH EVERY MORNING for hypertension 4 Active pravastatin (Pravachol) 40 MG tablet Take 40 mg by mouth at bedtime 4 Active triamterene-hyd rochlorothiazid e (Maxzide-25) 37.5-25 MG tablet Take 1 tablet by mouth Daily 4 Active aspirin 81 MG EC tablet Take 81 mg by mouth Daily Active LORazepam (Ativan) 0.5 MG tabletIndicatio ns:Anxiety and depression Take 1 tablet (0.5 mg) by mouth in the morning and 1 tablet (0.5 mg) in the evening and 1 tablet (0.5 mg) before bedtime. Do all this for 15 days. 45 tablet 4 Active amoxicillin-cla vulanate (Augmentin) 875-125 MG tablet Take 1 tablet by mouth every 12 (twelve) hours Active cetirizine (ZyrTEC) 10 MG tablet Take by mouth Daily 4 Active citalopram (CeleXA) 10 MG tablet Take 10 mg by mouth Daily Active gabapentin (Neurontin) 300 MG capsule Take 300 mg by mouth in the morning and 300 mg in the evening and 300 mg before bedtime. 4 Active lisinopril 30 MG tablet Take 30 mg by mouth Daily 4 Active LORazepam (Ativan) 0.5 MG tablet Take 0.5 mg by mouth 4 Active magnesium oxide (Mag-Ox) 400 (240 Mg) MG tablet Take 400 mg by mouth Daily 4 Active metoprolol tartrate (Lopressor) 50 MG tablet Take 50 mg by mouth in the morning and 50 mg before bedtime. 4 Active cyclobenzaprine (Flexeril) 10 MG tablet Take 10 mg by mouth 3 (three) times a day as needed for muscle spasms Active ALPRAZolam (Xanax) 0.25 MG tablet Take 0.25 mg by mouth as needed at bedtime for anxiety Active atorvastatin (Lipitor) 10 MG tablet Take 10 mg by mouth Daily Active Active Problems Problem Noted Date Diagnosed Date Subarachnoid hemorrhage 02/22/2024 Chronic venous hypertension 02/22/2024 Left leg pain 02/22/2024 Spondylosis 02/22/2024 Subdural hematoma caused by concussion Surgical wound, non healing 02/22/2024 Numbness and tingling of both legs 02/22/2024 Lymphedema of both lower extremities 02/22/2024 Hyponatremia 02/22/2024 Acute blood loss anemia 08/24/2023 Polypharmacy 08/24/2023 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 Follows with cardiology, per outpatient note patient was recommended to be on indefinite clopidogrel. Last C 11/2021 noting significant calcification in LCx and LAD. - BB: metoprolol tartrate 12.5 BID - Statin: pravastatin (previous intolerance to high intensity statin) - AP: clopidogrel - lipid panel LDL-c 59 - Hgb A1c 4.9% Plan: - holding clopidogrel - continue metoprolol 12.5 mg BID - pravastatin 40 mg daily, goal LDL-c ideally < 55 DVT (deep venous thrombosis) 05/03/2023 Overview (05/29/2023): Last Assessment & Plan: Hx of DVT on eliquis (06/2022). Previously on low dose eliquis 2.5 mg BID. Plan: Hold AC Duplex US BLE HORTENSIA (iron deficiency anemia) 05/03/2023 Overview (05/29/2023): Last Assessment & Plan: Assessment: on iron tablets as outpatient. Hgb on arrival 12.8. no iron studies. Unknown last C-scope. Plan - repeat iron studies - CBC daily Mixed hyperlipidemia 05/03/2023 Overview (05/29/2023): Last Assessment & Plan: Plan - pravastatin Primary hypertension 05/03/2023 Overview (05/29/2023): Last Assessment & Plan: Assessment: home antiHTN losartan and HCTZ. On losartan 100 mg however her home dose is 25 mg daily Plan: - BP goal as above - losartan, metoprolol tartrate - hold HCTZ SAH (subarachnoid hemorrhage) 05/03/2023 Overview (05/29/2023): Last Assessment & Plan: Began 05/03 in the morning, no previous hx of bleeds, no trauma, no family hx of bleeds or aneurysms. Plan: MRI/MRA MRI cervical spine SBP <160 - home losartan, metoprolol tartrate and PRN, holding home HCTZ NC Q4H Hold AC/AP NSGY recs Sciatica of right side 05/03/2023 Overview (05/29/2023): Last Assessment & Plan: Assessment: previous hx of R sided sciatica with R LE weakness. Appreciated on admission physical exam. 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 Per patient last seizure was years ago . Does not follow with neurology as outpatient. Review of med list shows that she is not on any AED as outpatient (has allergy to multiple AED). Plan - stop Keppra 750 BID Uncomplicated asthma 05/03/2023 Overview (05/29/2023): Last Assessment & Plan: Assessment: hx of asthma, no PFT in EMR. No rescue inhaler per recent dispense report. Hx of montelukast. 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 03/20/2023 Onychomycosis due to dermatophyte 03/20/2023 Pain in limb 03/20/2023 Peripheral venous insufficiency 03/20/2023 Verruca plantaris 03/20/2023 Acquired dysmorphic toenail 05/19/2022 Tendonitis, Achilles, left 05/19/2022 Gastroesophageal reflux disease without esophagi tis 12/01/2021 Open wound of left knee 12/15/2018 Heel pain, chronic 10/15/2014 Pain in left foot 10/15/2014 Heel spur 10/15/2014 Ankle joint instability 01/01/2012 Derangement of ankle or foot 01/01/2012 Ankle and foot joint derangement 01/01/2012 Encounters Date Type Department Care Team Description 08/21/2024 1:00 PM EDT Procedure Visit [facility] [address] [place] [address] Santosh Jhaveri, DPBrittany Idiopathic progressive polyneuropathy (Primary Dx); Onychomycosis; Corns and callosities 08/21/2024 Bamboo flowsheet [facility] [address] [place] [address] Santosh Jhaveri DPM 08/21/2024 Travel from Last 3 Months Immunizations Immunization Administration Dates Next Due Pneumococcal Polysaccharide PPSV23 04/04/2019 Tdap 02/23/2021,12/05/2013 Tetanus toxoid, adsorbed 12/06/1998 Social History Tobacco Use Types Packs/Day Years Used Date Smoking Tobacco: Former Cigarettes Q uit: 1983 Smokeless Tobacco: Never Tobacco Cessation:Counseling Given: Not Answered Alcohol Use Standard Drinks/Week Comments Never 0 [...] PM EDT Temperature - - Respiratory Rate 18 05/22/2024 1:07 PM EDT Oxygen Saturation 92% 04/21/2024 1:14 PM EST Inhaled Oxygen Concentration - - Weight 76.2 kg (168 lb) 05/22/2024 1:07 PM EDT Height 162.6 cm (5' 4 ) 05/22/2024 1:07 PM EDT Body Mass Index 28.84 05/22/2024 1:07 PM EDT Plan of Treatment Upcoming Encounters Date Type Department Care Team (Late st Contact Info) Description 11/21/2024 1:15 PM EDT Procedure Visit [facility] [address] [place] [address] Santosh Jhaveri DPM [address] [place] [address] Health Maintenance Due Date Last Done Comments Pneumococcal Vaccine: 65+ Years (2 of 2 - PCV) 021 04/04/2019 Influenza Vaccine (Season Ended) 2024 Insurance MEDICARE AET Care Teams Crisis Therapist Relationship Specialty Start Date End Date Amado Mckenzie MD [address] [place] [phone] PCP - General Family Medicine 08/21/24 Santosh Childress DO Referring Physician Neurology 04/21/24
--- OUTSIDE RECORDS SUMMARY | 2024-09-03 15:10 | XMS_ITS | Continuity of Care Document ---
Author Organization [facility] Address [address] [place] [id number] Phone [phone] Care Team Providers Care Rear Admiral Name Role Phone Amado Mckenzie Care Team Information Angle Dozer Operator [phone] Assessments Date Code Description Provider 07/10/2023 E87.1 Hypo-osmolality and hyponatr emia Pina Mendez NP-C 07/10/2023 I10 Essential (primary) hyperten hiwot Mendez NP-C 07/10/2023 R05.9 Cough, unspecified Harleen Mendez NP-C 07/10/2023 R06.02 Shortness of breath Homar Mendez NP-C 07/09/2023 E87.1 Hypo-osmolality and hyponatr emia Dyan Alatorre M.D. 07/09/2023 I10 Essential (primary) hypertmadina Alatorre M.D. 07/09/2023 R05.9 Cough, unspecified Dyan miller M.D. 07/09/2023 R06.02 Shortness of breath Dyan muse M.D.
--- OUTSIDE RECORDS SUMMARY | 2024-09-03 15:10 | XMS_ITS | Encounter Summary ---
Author Organization [facility] Address [address] [place] [address] Phone Care Team Providers Care Medical Nurse Name Role Phone Amado Mckenzie DO Primary Care Provider [phone] Encounter Details Date Type Department Care Team (Late st Contact Info) Description 12/20/2021 Orders Only [facility] [address] [place] [address] Conversion, Onbase Social History Tobacco Use Types Packs/Day Years Used Date Smoking Tobacco: Never Assessed Comments Unknown Sex and Gender Information Value Date Recorded Sex Assigned at Not on file Legal Sex Female 11:47 AM EST Gender Identity Not on file Sexual Orientation Not on file documented as of this encounter Functional Status * Little interest or pleasure in doing things Answer Date of Assessment Author Not at all 12/22/2021 12:24 PM EDT Conversi on, [employer] Vitals documented as of this encounter Plan of Treatment Scheduled Orders Name Type Priority Associated Diagnoses Orde r Schedule OUTSIDE LAB SCAN Lab Ordered: 12/20/2021 documented as of this encounter Visit Diagnoses Not on filedocumented in this encounter Care Teams Medical Nurse Relationship Specialty Start Date End Date Amado Mckenzie DO [address] [facility] [address] [place] [address] PCP - General 03/12/99 documented as of this encounter
--- OUTSIDE RECORDS SUMMARY | 2024-09-03 15:10 | XMS_ITS | Encounter Summary ---
Author Organization [facility] Address [address] [place] [address] Care Team Providers Care Head Of Art Name Role Phone Amado Mckenzie Primary Care Provider [phone] Source Comments In the event this information is protected by the Federal Confidentiality of Alcohol and Drug AbusePatient Records regulations: The Federal rules restrict any use of the information to criminally investigate or prosecute any alcohol or drug abuse patient.[facility] Encounter Details Date Type Department Care Team (Late st Contact Info) Description 06/18/2023 Patient [facility] [place] [id number] Yahaira Saenz RPh Medication Refill Past Due Social History Tobacco Use Types Packs/Day Years Used Date Smoking Tobacco: Former Cigarettes 0.5 10 1 967 - 1976 Smokeless Tobacco: Never Alcohol Use Standard Drinks/Week Comments Yes 0 (1 standard drink = 0.6 oz pur e alcohol) socially wine, beer [facility] Utilities Answer Date Recorded In the past [...] place to sleep or slept in a long term (including now)? No 05/04/2023 Area Deprivation Index Answer Date Alexei rded National Score (1-100), lower number is lower ri sk 65 05/25/2023 State Score (1-10), lower number is lower risk 4 05/25/2023 Data from: https://www.neighborhoodatlas.medicine.[employer].edu/. Last address used for calculation [address] 05/25/2023 Comments No Sex and Gender Information Value Date Recorded Sex Assigned at Not on file Legal Sex Female 9:44 AM EST Gender Identity Not on file Sexual Orientation Not on file documented as of this encounter Functional Status * Are you deaf or do you have serious difficulty hearing? Answer Date of Assessment Author No 05/07/2023 3:08 PM Ledy Alexander RN * Are you blind or do you have serious difficulty seeing, even when wearing glasses? Answer Date of Assessment Author No 05/07/2023 3:08 PM Ledy Alexander RN * Do you have serious difficulty walking or climbing stairs? Answer Date of Assessment Author No 05/07/2023 3:08 PM Ledy Alexander RN * Do you have difficulty dressing or bathing? Answer Date of Assessment Author Yes 05/07/2023 3:08 PM Ledy Alexander RN * Because of a physical, mental, or emotional condition, do you have difficulty doing errands alone such as visiting a doctor's office or shopping? Answer Date of Assessment Author No 05/07/2023 3:08 PM Ledy Alexander RN documented as of this encounter Mental Status * Because of a physical, mental, or emotional condition, do you have serious difficulty concentrating, remembering, or making decisions? Answer Entry Date Author No 05/07/2023 3:08 PM Ledy Alexander RN documented in this encounter Plan of Treatment Upcoming Encounters Date Type Department Care Team (Late st Contact Info) Description 09/26/2024 3:30 PM EDT Office Visit [facility] [address] [place], [place] [id number] Tiff Aguilera, OD [address] [place] [address] 1 year full, mac OCT documented as of this encounter Visit Diagnoses Not on filedocumented in this encounter Care Teams Head Of Art Relationship Specialty Start Date End Date Amado Mckenzie DO [address] [place] [address] [address] [place] [address] PCP - General Family Medicine 07/05/15 documented as of this encounter
--- OUTSIDE RECORDS SUMMARY | 2024-09-03 15:10 | XMS_ITS | Encounter Summary ---
Author Organization [facility] Address [address] [place] [address] Care Team Providers Care Geological Engineering Teacher Name Role Phone Amado Mckenzie Primary Care Provider [phone]- [phone] Source Comments In the event this information is protected by the Federal Confidentiality of Alcohol and Drug AbusePatient Records regulations: The Federal rules restrict any use of the information to criminally investigate or prosecute any alcohol or drug abuse patient.[facility] Encounter Details Date Type Department Care Team (Late st Contact Info) Description 05/14/2023 Patient [facility] [address] [place], [place] [id number] Provider, Ccdanita Virtual Visit Instructions Social History Tobacco Use Types Packs/Day Years Used Date Smoking Tobacco: Former Cigarettes 0.5 10 1 967 - 1976 Smokeless Tobacco: Never Alcohol Use Standard Drinks/Week Comments Yes 0 (1 standard drink = 0.6 oz pur e alcohol) socially wine, beer [facility] Utilities Answer Date Recorded In the past 12 months has th Stayful, gas, oil, or water [employer] threatened to shut off services in your [...] (1-100), lower number is lower ri sk 62 05/19/2022 State Score (1-10), lower number is lower risk N ot on file 05/19/2022 Data from: https://www.neighborhoodatlas.medicine.[facility].edu/. Last address used for calculation [address] 05/19/2022 Comments No Sex and Gender Information Value [...] PM EDT Office Visit [facility] [address] [place] [address] Tiff Aguilera, OD [address] [place] [address] 1 year full, mac OCT documented as of this encounter Visit Diagnoses Not on filedocumented in this encounter Care Teams Geological Engineering Teacher Relationship Specialty Start Date End Date Amado Mckenzie DO [address] [place] [address] PCP - General Family Medicine 07/05/15 documented as of this encounter
--- OUTSIDE RECORDS SUMMARY | 2024-09-03 15:10 | XMS_ITS | Clinical Summary ---
Author Organization [facility] [facility] Address [id number] [address] [id number] Care Team Providers Care Steam Gigger Name Role Phone Unavailable Primary Care Provider Unavailabl e Social History Tobacco Use Types Packs/Day Years Used Date Smoking Tobacco: Never Assessed Childcare Answer Date Recorded Childcare Unknown 08/22/2018 Employment Answer Date Recorded Employment Unknown 08/22/2018 Purpose - Life Answer Date Recorded Purpose and direction in life Unknown Comments Unknown Sex and Gender Information Value Date Recorded Sex Assigned at Not on file Legal Sex Female 2:04 PM EDT Gender Identity Not on file Sexual Orientation Not on file Plan of Treatment Health Maintenance Due Date Last Done Comments Depression Screening 1952 Tobacco Screening 1952 Zoster (Shingles) Vaccine (1 of 2) 07/06/1989 Fall Risk Screening 07/06/2004 COVID-19 Vaccine (2023-2 5 season) 2023 05/04/2020, 04/03/2020 Influenza Vaccine 11/10/2024 02/09/2021, , 12/15/2018, Additional history exists DTaP,Tdap and Td Vaccines (4 - Td or Tdap) 02/23/2031 02/23/2021, 06/18/2017, 12/05/2013 Medical Devices Not on file Insurance [facility] MEDICARE
--- OUTSIDE RECORDS SUMMARY | 2024-09-03 15:10 | XMS_ITS | Encounter Summary ---
Author Organization [facility] Address [address] [place] [address] Phone Care Team Providers Care Skid Road Worker Name Role Phone Amado Mckenzie DO Primary Care Provider [phone]- [phone] Encounter Details Date Type Department Care Team (Late st Contact Info) Description 08/01/2022 Orders Only [facility] [address] [place] [address] Conversion, Onbase Social History Tobacco Use Types [...] r Schedule OUTSIDE LAB SCAN Lab Ordered: 08/01/2022 documented as of this encounter Visit Diagnoses Not on filedocumented in this encounter Care Teams Skid Road Worker Relationship Specialty Start Date End Date Amado Mckenzie DO [address] [place] [id number] PCP - General 03/12/99 documented as of this encounter
--- OUTSIDE RECORDS SUMMARY | 2024-09-03 15:10 | XMS_ITS | Encounter Summary ---
Author Organization [facility] Address [address] [place] [address] Phone Care Team Providers Care Rolling Chair Pusher Name Role Phone Amado Mckenzie DO Primary Care Provider [phone]- [phone] Encounter Details Date Type Department Care Team (Late st Contact Info) Description 06/29/2022 Orders Only [facility] [address] [place] [address] Conversion, Onbase Social History Tobacco Use Types [...] r Schedule OUTSIDE LAB SCAN Lab Ordered: 06/29/2022 documented as of this encounter Visit Diagnoses Not on filedocumented in this encounter Care Teams Rolling Chair Pusher Relationship Specialty Start Date End Date Amado Mckenzie DO [address] [place] [id number] PCP - General 03/12/99 documented as of this encounter
--- NOTE | 2024-09-03 16:00 | PM.CN ---
Consult Note: HPI Data of Consult Patient: known to practice within the last 3 years Requesting Physician: Zuleima Valdivia NP Primary Care Provider: HARDEEP SUÁREZ Consult Narrative Reason for consult: chronic low back pain Narrative: Carly Marcelino a pleasant 84 year old female presents for evaluation and management of severe low back pain. pt has a longstanding hx of low back pain, previous lumbar surgery per pt but known type, and recently engaged in PT greater than 6 weeks without benefit. lumbar xray consistent with multilevel facet arthropathy and DDD. hx of T12 compression fx. recently underwent lumbar MRI with results below pt currently on baclofen 5mg PRN, tramadol 50-100mg TID PRN, gabapentin 300mg TID, and tylenol 325-650mg PRN with benefit without side effects. Avoids NSAIDs. CECIL 38%, moderate pain with standing, walking, ADLs, pain impacting sleep and social life/travel. Recent bilateral L4/5 L5/S1 rfa providing significant improvement in facet mediated low back pain. pt noting worsening pain with standing, walking improved with forward flexion. cc:: CC: Zuleima Valdivia NP Review of Systems ROS Status of ROS 10 or more systems reviewed and unremarkable except as noted in history and below Musculoskeletal Reports: back pain PFSH PFSH Medical History Osteoarthritis ?M19.90 - Unspecified osteoarthritis, unspecified site (ICD-10) Seizure ?R56.9 - Unspecified convulsions (ICD-10) Asthma ?J45.909 - Unspecified asthma, uncomplicated (ICD-10) HTN (hypertension) ?I10 - Essential (primary) hypertension (ICD-10) Surgical History History of foot surgery ?Z98.890 - Other specified postprocedural states (ICD-10) History of total knee arthroplasty ?Z96.659 - Presence of unspecified artificial knee joint (ICD-10) History of tonsillectomy and adenoidectomy ?Z90.89 - Acquired absence of other organs (ICD-10) History of pharyngoplasty ?Z98.890 - Other specified postprocedural states (ICD-10) History of back surgery ?Z98.890 - Other specified postprocedural states (ICD-10) History of breast biopsy ?Z98.890 - Other specified postprocedural states (ICD-10) History of total shoulder replacement ?Z96.619 - Presence of unspecified artificial shoulder joint (ICD-10) Meds Home Medications and Allergies Home Medications ?Medication ?Instructions ?Recorded ?Confirmed ?Type alprazolam 0.25 mg tablet 0.5 mg PO BID PRN anxiety 09/08/23 07/28/24 History calcium carbonate (Oyster Shell 500 mg PO DAILY 09/08/23 07/28/24 History Calcium) cetirizine 10 mg tablet (24Hour 10 mg PO DAILY 09/08/23 07/28/24 History Allergy) cyanocobalamin (vitamin B-12) 1,000 mcg PO DAILY 09/08/23 07/28/24 History 1,000 mcg capsule docusate sodium 100 mg capsule 100 mg PO BID 09/08/23 07/28/24 History (Col-Rite) ferrous sulfate 325 mg (65 mg 325 mg PO DAILY 09/08/23 07/28/24 History iron) tablet (FeroSul) gabapentin 300 mg capsule 300 mg PO Q8H 09/08/23 07/28/24 History lisinopril 5 mg tablet 2.5 mg PO BEDTIME 09/08/23 07/28/24 History losartan 50 mg tablet 50 mg PO DAILY 09/08/23 07/28/24 History magnesium 200 mg tablet 400 mg PO DAILY 09/08/23 07/28/24 History metoprolol tartrate 50 mg tablet 50 mg PO BID 09/08/23 07/28/24 History (Lopressor) montelukast 10 mg tablet 10 mg PO DAILY 09/08/23 07/28/24 History omega 0-dli-nwe-fish oil 1,000 mg 1 cap PO DAILY 09/08/23 07/28/24 History (120 mg-180 mg) capsule (Fish Oil) pravastatin 20 mg tablet 40 mg PO BEDTIME 09/08/23 07/28/24 History diazepam 5 mg tablet (Valium) 5 mg PO BID PRN sedation 07/28/24 07/28/24 History Allergies Allergy/AdvReac Type Severity Reaction Status Date / Time alcohol (From Mastisol AdvReac Mild RASH Verified 07/28/24 09:05 Adhesive) amlodipine AdvReac Mild UNKNOWN Verified 07/28/24 09:05 carbamazepine AdvReac Mild UNKNOWN Verified 07/28/24 09:05 divalproex sodium (From AdvReac Mild Unknown Verified 07/28/24 09:05 Depakote) gum mastic (From Mastisol AdvReac Mild UNKNOWN Verified 07/28/24 09:05 Adhesive) Hydantoins AdvReac Mild Unknown Verified 07/28/24 09:05 hydrochlorothiazide AdvReac Mild Unknown Verified 07/28/24 09:05 labetalol AdvReac Mild Unknown Verified 07/28/24 09:05 methyl salicylate (From AdvReac Mild Unknown Verified 07/28/24 09:05 Mastisol Adhesive) mometasone furoate AdvReac Mild Unknown Verified 07/28/24 09:05 nifedipine AdvReac Mild Unknown Verified 07/07/24 11:04 nitrofurantoin AdvReac Mild Unknown Verified 07/07/24 11:04 phenytoin (From Dilantin) AdvReac Mild Unknown Verified 07/07/24 11:04 sertraline AdvReac Mild Unknown Verified 07/07/24 11:04 storax (From Mastisol AdvReac Mild Unknown Verified 07/07/24 11:04 Adhesive) valproic acid AdvReac Mild Unknown Verified 07/07/24 11:04 Exam Constitutional Documenting provider has reviewed patient's vital signs: yes Common normals: no apparent distress, oriented x3, healthy appearing, alert and well nourished General appearance: cooperative HENNM Common normals: normocephalic, hearing grossly normal bilaterally and moist oral mucous membranes Head and scalp: normocephalic Eye Common normals: PERRL Pupil: PERRL Neck & C-Spine Common normals: full ROM General: normal visual inspection Chest Common normals: inspection of chest normal Respiratory Common normals: normal respiratory effort, no retractions and no use of accessory muscles Back & Pelvis Lumbar spine/lower back: straight leg raise negative bilaterally; ROM not limited, no pain with ROM and no lumbar spinal tenderness Other: increased low back pain with standing and walking reports heaviness weakness of BLE and low back pain that improves upon sitting and forward flexion Extremity Common normals: normal to inspection and full ROM Neuro Common normals: oriented x3, CN's II-XII intact bilaterally, moves all extremities, no focal motor deficits, no sensory deficits noted and deep tendon reflexes 2+ bilaterally Sensorium/orientation: alert Motor exam: strength 5/5 throughout and no movement abnormalities noted Psych Common normals: mental status grossly normal, thought process normal, cooperative, affect normal, speech normal and activity/motor behavior normal Speech: normal speech Thought process: normal thought process Results Additional Findings Additional findings: T12-L1: Slight disc bulge minimally indents the ventral thecal sac. No high-grade spinal canal narrowing. Advanced right and mild left foraminal narrowing. Mild bilateral facet/ligamentum flavum hypertrophy. L1-L2: Slight disc bulge indents the ventral thecal sac. No high-grade spinal canal narrowing. Mild bilateral foraminal narrowing. Mild bilateral facet/ligamentum flavum hypertrophy. L2-L3: Slight disc bulge minimally indents the ventral thecal sac. No high-grade spinal canal narrowing. Mild bilateral foraminal narrowing. Mild bilateral facet/ligamentum flavum hypertrophy. L3-L4: Slight disc bulge and osteophytic ridging minimally indents the ventral thecal sac. Mild spinal canal narrowing. Moderate bilateral foraminal narrowing. Moderate bilateral facet/ligamentum flavum hypertrophy. L4-L5: No disc bulge or herniation. Mild to moderate spinal canal narrowing. Moderate bilateral foraminal narrowing. Advanced bilateral facet hypertrophy. L5-S1: Slight disc bulge minimally indents the ventral thecal sac. No high-grade spinal canal narrowing. Moderate bilateral foraminal narrowing. Moderate bilateral facet/ligamentum flavum hypertrophy. Suspected right hemilaminectomy changes. Assessment and Plan Assessment and Plan (1) Lumbar spondylosis: (2) Lumbar stenosis with neurogenic claudication: Assessment and Plan: The patient has had over 3 months of moderate to severe low back pain with functional impairment and inadequate response to conservative care including NSAIDS (unless there are contraindication such as concurrent blood thinners), multiple oral or topical pain medications, and home exercise program/physical therapy.? Patient has completed >6 weeks of guided home exercise program and/or formal physical therapy program without relief of their symptoms.? CECIL 38% with moderate to severe pain impacting ADLs, sleep, social life, travel We discussed the risks and benefits of the procedure with the patient, and we are NOT planning on using sedation as outlined in the guidelines from Medicare unless there is a documented reason that sedation would be strongly recommended.?? ?The procedure will be completed with fluoroscopic guidance.? (3) Failed back syndrome: (4) Lumbar degenerative disc disease: (5) Sacroiliac joint dysfunction: Plan repeat bilateral L5-S1 TFESI under fluoroscopy for lumbar stenosis with NC, prior injection provided at least 50% improvement for 3 months declining aquatherapy for generalized weakness at this time, continue HEP as tolerated. continue to utilize walker, denies falls continue medications through PCP f/u 2 weeks after TFESI
== END 2024-09-03 15:08 | disposition home or self-care (01) ==
LOC: PM 15:07
PROVIDERS: PCP Family Medicine; Visit Provider Nurse Practitioner
DX: M47.816 Spondylosis without myelopathy or radiculopathy, lumbar region (principal); M48.062 Spinal stenosis, lumbar region with neurogenic claudication; M96.1 Postlaminectomy syndrome, not elsewhere classified; M51.369 Other intervertebral disc degeneration, lumbar region without mention of lumbar back pain or lower extremity pain; M53.3 Sacrococcygeal disorders, not elsewhere classified
CPT/HCPCS: G0463

== ENCOUNTER 2024-09-08 09:31 | Day surgery (SDC) | payer MEDICARE, SELFPAY ==
--- OUTSIDE RECORDS SUMMARY | 2024-09-08 09:34 | XMS_ITS | Encounter Summary ---
Author Organization [facility] Address [address] [facility] [place] [address] Care Team Providers Care Card Cleaner Name Role Phone Amado Mckenzie MD Primary Care Provider [phone] Santosh Childress DO Unavailable [phone] Amado Mckenzie MD Primary Care Provider [phone] Encounter Details Date Type Department Care Team (Late Contact Info) Description 10/02/2023 Abstract [facility] [address] [facility] [address] [place] [phone] Unallocated, Noms Provider, [address] [place] [address] Social History Tobacco Use Types Packs/Day Years [...] Procedure Visit [facility] [address] [place] [address] Santosh Jhaveri DPM [address] [place] [address] documented as of this encounter Visit Diagnoses Not on filedocumented in this encounter Care Teams Card Cleaner Relationship Specialty Start Date End Date Amado Mckenzie MD PCP - General Family Medicine 08/17/22 08/20/24 Amado Mckenzie MD [address] [place] [phone] PCP - General Family Medicine 08/21/24 Santosh Childress DO Referring Physician Neurology 04/21/24 documented as of this encounter
--- OUTSIDE RECORDS SUMMARY | 2024-09-08 09:34 | XMS_ITS | Encounter Summary ---
Author Organization [facility] Address [address] [facility] [place] [address] Care Team Providers Care Dowel Inserting Machine Operator Name Role Phone Amado Mckenzie MD Primary Care Provider [phone] Santosh Childress DO Unavailable [phone] Amado Mckenzie MD Primary Care Provider [phone] Encounter Details Date Type Department Care Team (Late Contact Info) Description 09/27/2023 Abstract [facility] [address] [facility] [address] [place] [phone] Unallocated, [facility] Provider, [address] [place] [address] Social History Tobacco Use Types Packs/Day Years [...] Procedure Visit [facility] [address] [place] [address] Santosh Jhaveri DPM [address] [place] [address] documented as of this encounter Visit Diagnoses Not on filedocumented in this encounter Care Teams Dowel Inserting Machine Operator Relationship Specialty Start Date End Date Amado Mckenzie MD PCP - General Family Medicine 08/17/22 08/20/24 Amado Mckenzie MD [address] [place] [phone] PCP - General Family Medicine 08/21/24 Santosh Childress DO Referring Physician Neurology 04/21/24 documented as of this encounter
--- OUTSIDE RECORDS SUMMARY | 2024-09-08 09:35 | XMS_ITS | Clinical Summary ---
Author Organization [facility] Address [address] [place] [address] Phone Care Team Providers Care Flight Attendant/Inflight Manager Name Role Phone Amado Mckenzie DO Primary Care Provider [phone] Allergies Active Allergy Reactions Criticality Noted Date Comments Carbamazepine Unknown 12/29/2022 Labetalol Unknown 12/29/2022 Nifedipine Unknown 12/29/2022 Phenytoin Unknown 12/29/2022 Valproic Acid Unknown 12/29/2022 Medications metoprolol tartrate (Lopressor) 25 mg tablet Take 0.5 tablets (12.5 mg) by mouth 2 times a day. Active omega 6-eex-fvu-fish oil (Fish OiL) 300-1,000 mg capsule,delayed release(DR/EC) [...] Bone Density Scan 1939 Lipid Panel 1939 DTaP/Tdap/Td Vaccines (1 - Tdap) 07/06/1961 Zoster Vaccines (1 of 2) 07/06/1989 RSV High Risk: (Elderly (60+ ) or Population) (1 - 1-dose 75+ series) 07/06/2014 Medicare Annual Wellness Vis it (AWV) 12/21/2018 12/20/2017, 05/30/2016 Pneumococcal Vaccine (2 of 2 - PCV) 04/04/2020 04/04/2019 COVID-19 Vaccine ( - 2023-2 5 season) 2023 Influenza Vaccine [...] MEDICARE PART A AND B Care Teams Flight Attendant/Inflight Manager Relationship Specialty Start Date End Date Amado Mckenzie DO [address] [place] [id number] PCP - General 03/12/99
--- OUTSIDE RECORDS SUMMARY | 2024-09-08 09:35 | XMS_ITS | Encounter Summary ---
Author Organization [facility] Address [address] [facility] [place] [address] Care Team Providers Care Property Investor Name Role Phone Amado Mckenzie MD Primary Care Provider [phone] Santosh Childress DO Unavailable [phone] Amado Mckenzie MD Primary Care Provider [phone] Encounter Details Date Type Department Care Team (Late Contact Info) Description 10/10/2023 Abstract [facility] [address] [facility] [address] [place] [phone] Unallocated, [facility] Provider, [address] [place] [address] Social History Tobacco Use Types Packs/Day Years [...] Procedure Visit [facility] [address] [place] [address] Santosh Jhaveri DPM [address] [place] [address] documented as of this encounter Visit Diagnoses Not on filedocumented in this encounter Care Teams Property Investor Relationship Specialty Start Date End Date Amado Mckenzie MD PCP - General Family Medicine 08/17/22 08/20/24 Amado Mckenzie MD [address] [place] [phone] PCP - General Family Medicine 08/21/24 Santosh Childress DO Referring Physician Neurology 04/21/24 documented as of this encounter
--- OUTSIDE RECORDS SUMMARY | 2024-09-08 09:35 | XMS_ITS | Encounter Summary ---
Author Organization [facility] Address [address] [place] [address] Phone Care Team Providers Care Rooming House Operator Name Role Phone Amado Mckenzie DO Primary Care Provider [phone] Encounter Details Date Type Department Care Team (Late st Contact Info) Description 08/01/2022 Orders Only [facility] [address] [place] [address] Conversion, Onbase Social History Tobacco Use Types [...] on filedocumented in this encounter Care Teams Rooming House Operator Relationship Specialty Start Date End Date Amado Mckenzie DO [address] [place] [phone] PCP - General 03/12/99 documented as of this encounter
--- OUTSIDE RECORDS SUMMARY | 2024-09-08 09:35 | XMS_ITS | Encounter Summary ---
Author Organization [facility] Address [address] [place] [address] Phone Care Team Providers Care Alpine Guide Name Role Phone Amado Mckenzie DO Primary Care Provider [phone] Encounter Details Date Type Department Care Team (Late st Contact Info) Description 12/20/2021 Orders Only [facility] [address] [place] [address] Conversion, Onbase Social History Tobacco Use Types [...] on filedocumented in this encounter Care Teams Alpine Guide Relationship Specialty Start Date End Date Amado Mckenzie DO [address] [facility] [address] [place] [address] PCP - General 03/12/99 documented as of this encounter
--- OUTSIDE RECORDS SUMMARY | 2024-09-08 09:35 | XMS_ITS | Clinical Summary ---
Author Organization [facility] Address [address], [place] [address] Care Team Providers Care Chemical Engineering Teacher Name Role Phone Amado Mckenzie Primary Care Provider [phone] Allergies Active Allergy Reactions Criticality Noted Date [...] 11:15 PM 12/18/2018 8:39 PM Care Teams Chemical Engineering Teacher Relationship Specialty Start Date End Date Amado Mckenzie DO PCP - General Family Medicine 12/15/18
--- OUTSIDE RECORDS SUMMARY | 2024-09-08 09:35 | XMS_ITS | Continuity of Care Document ---
Author Organization [facility]. Address [address] [place] [address] Phone [phone] Care Team Providers Care Overlock Waistline Joiner Name Role Phone Amado Mckenzie Care Team Information Psychiatric Clinical Nurse Specialist [phone] Assessments Date Code Description Provider 07/10/2023 E87.1 [...]
--- OUTSIDE RECORDS SUMMARY | 2024-09-08 09:35 | XMS_ITS | Encounter Summary ---
Author Organization [facility] Address [address] [place] [address] Phone Care Team Providers Care Drapery And Upholstery Estimator Name Role Phone Amado Mckenzie DO Primary Care Provider [phone] Encounter Details Date Type Department Care Team (Late st Contact Info) Description 06/29/2022 Orders Only [facility] [address] [place] [address] Conversion, Onbase Social History Tobacco Use Types [...] on filedocumented in this encounter Care Teams Drapery And Upholstery Estimator Relationship Specialty Start Date End Date Amado Mckenzie DO [address] [place] [phone] PCP - General 03/12/99 documented as of this encounter
--- OUTSIDE RECORDS SUMMARY | 2024-09-08 09:35 | XMS_ITS | Clinical Summary ---
Author Organization [facility] Address [address] [place] [address] Care Team Providers Care Retail Service Lead Merchandiser Name Role Phone MonroeDavidliaabigail DO Unavailable [phone] Amado Mckenzie MD Primary Care Provider [phone] Allergies Active Allergy Reactions Criticality Noted Date [...] angiopathy 05/05/2023 Coronary artery disease invo lving [place] coronary artery of [place] heart without angina pectoris 05/03/2023 Overview (05/29/2023): [...] Procedure Visit [facility] [address] [place] [address] Santosh Jhaveri, DPBrittany Idiopathic progressive polyneuropathy (Primary Dx); Onychomycosis; Corns and callosities 08/21/2024 Bamboo flowsheet [facility] [address] [place] [address] Santosh Jhaveri DPM 08/21/2024 Travel [...] Procedure Visit [facility] [address] [place] [address] Santosh Jhaveri DPM [address] [place] [address] Health Maintenance Due Date Last Done Comments Pneumococcal Vaccine: 65+ Years (2 of 2 - PCV) 021 04/04/2019 Influenza Vaccine (Season Ended) 2024 Insurance MEDICARE AET Care Teams Retail Service Lead Merchandiser Relationship Specialty Start Date End Date Amado cMkenzie MD [address] [place] [phone] PCP - General Family Medicine 08/21/24 Santosh Childress DO Referring Physician Neurology 04/21/24
[2024-09-08 09:48] VITALS: BP 174/73; PULSE 56; TEMP 36.2; O2SAT 95
[2024-09-08 10:21] VITALS: BP 175/92; PULSE 57; PULSE 62; O2SAT 96
[2024-09-08 10:23] VITALS: BP 182/79
[2024-09-08] MEDS: 0.9 % SODIUM CHLORIDE 10 ML SYRINGE - SALINE FLUSH INJ (10:23)
[2024-09-08] MEDS: LIDOCAINE HCL 2% 400 MG/20 ML MDV 3 ML INJ (10:24)
[2024-09-08] MEDS: IOHEXOL 240 MG/ML - 10 ML VIAL INJ (10:24)
[2024-09-08] MEDS: BUPIVACAINE HCL 0.25% PF 25 MG/10 ML VIAL INJ (10:24)
[2024-09-08] MEDS: METHYLPREDNISOLONE ACETATE 80 MG/ML VIAL INJ (10:24)
--- NOTE | 2024-09-08 10:26 | W.PM.PROCNOT ---
Date of procedure: 09/08/24 Pre-op diagnosis: Pain due to lumbar stenosis with neurogenic claudication Post-op diagnosis: same as pre-op Procedure: Procedure: Bilateral L5-S1 transforaminal epidural steroid injection Medications: Bupivacaine 0.25% 2cc, lidocaine 2% 1cc, depomedrol 80mg The patient was seen and examined in the preoperative holding area.? Informed consent was obtained and placed on the chart.? Patient was brought to the medical procedure unit and placed in the prone position where a timeout was completed verifying the correct patient, procedure site, position, and planned special equipment using sterile aseptic technique.? Under direct fluoroscopic visualization a 25-gauge Quincke tipped spinal needle was advanced at level left L5-S1 to the designated neural foramen where contrast dye was injected to show adequate spread.? There was no evidence of vascular or adverse uptake.? Epidural spread was appreciated.? The above-mentioned injectate was then placed in a 1.5 mL aliquot preceded by negative aspiration.? The needle was removed. The same procedure, at the same level, was completed on the opposite side. ? Patient was taken to the postprocedural recovery area and monitored for an appropriate length of time before found suitable for discharge in the accompaniment of a responsible adult. Anesthesia: Local Surgeon: Anil Man Pathology: none sent Condition: stable Disposition: no change
== END 2024-09-08 11:09 | disposition home or self-care (01) ==
LOC: SURGOUT 09:32
PROVIDERS: PCP Family Medicine; Visit Provider Anesthesiology
DX: M48.062 Spinal stenosis, lumbar region with neurogenic claudication (principal); M54.50 Low back pain, unspecified
CPT/HCPCS: 64483; J0665; J1010; Q9966

== ENCOUNTER 2024-09-18 10:59 | Outpatient (OUT) | payer MEDICARE, SELFPAY ==
--- NOTE | 2024-09-18 11:43 | PM.CN ---
Consult Note: HPI Data of Consult Patient: known to practice within the last 3 years Consult date: 09/18/24 Requesting Physician: Zuleima Valdivia NP Primary Care Provider: HARDEEP SUÁREZ Consult Narrative Reason for consult: chronic low back pain Narrative: Carly Marcelino a pleasant 84 year old female presents for evaluation and management of severe low back pain. pt has a longstanding hx of low back pain, previous lumbar surgery per pt but known type, and recently engaged in PT greater than 6 weeks without benefit. lumbar xray consistent with multilevel facet arthropathy and DDD. hx of T12 compression fx. recently underwent lumbar MRI with results below pt currently on baclofen 5mg PRN, tramadol 50-100mg TID PRN, gabapentin 300mg TID, and tylenol 325-650mg PRN with benefit without side effects. Avoids NSAIDs. CECIL 24%, moderate pain with standing, walking, ADLs, pain impacting sleep and social life/travel. Recent bilateral L4/5 L5/S1 rfa providing significant improvement in facet mediated low back pain and bilateral L5/S1 TFESI providing significant improvement in NC. pain 0/10 today. cc:: CC: Zuleima Valdivia NP Review of Systems ROS Status of ROS 10 or more systems reviewed and unremarkable except as noted in history and below Musculoskeletal Reports: back pain PFSH PFSH Medical History Osteoarthritis ?M19.90 - Unspecified osteoarthritis, unspecified site (ICD-10) Seizure ?R56.9 - Unspecified convulsions (ICD-10) Asthma ?J45.909 - Unspecified asthma, uncomplicated (ICD-10) HTN (hypertension) ?I10 - Essential (primary) hypertension (ICD-10) Surgical History History of foot surgery ?Z98.890 - Other specified postprocedural states (ICD-10) History of total knee arthroplasty ?Z96.659 - Presence of unspecified artificial knee joint (ICD-10) History of tonsillectomy and adenoidectomy ?Z90.89 - Acquired absence of other organs (ICD-10) History of pharyngoplasty ?Z98.890 - Other specified postprocedural states (ICD-10) History of back surgery ?Z98.890 - Other specified postprocedural states (ICD-10) History of breast biopsy ?Z98.890 - Other specified postprocedural states (ICD-10) History of total shoulder replacement ?Z96.619 - Presence of unspecified artificial shoulder joint (ICD-10) Meds Home Medications and Allergies Home Medications ?Medication ?Instructions ?Recorded ?Confirmed ?Type alprazolam 0.25 mg tablet 0.5 mg PO BID PRN anxiety 09/08/23 09/08/24 History calcium carbonate (Oyster Shell 500 mg PO DAILY 09/08/23 09/08/24 History Calcium) cetirizine 10 mg tablet (24Hour 10 mg PO DAILY 09/08/23 09/08/24 History Allergy) cyanocobalamin (vitamin B-12) 1,000 mcg PO DAILY 09/08/23 09/08/24 History 1,000 mcg capsule docusate sodium 100 mg capsule 100 mg PO BID 09/08/23 09/08/24 History (Col-Rite) ferrous sulfate 325 mg (65 mg 325 mg PO DAILY 09/08/23 09/08/24 History iron) tablet (FeroSul) gabapentin 300 mg capsule 300 mg PO Q8H 09/08/23 09/08/24 History lisinopril 5 mg tablet 2.5 mg PO BEDTIME 09/08/23 09/08/24 History losartan 50 mg tablet 50 mg PO DAILY 09/08/23 09/08/24 History magnesium 200 mg tablet 400 mg PO DAILY 09/08/23 09/08/24 History metoprolol tartrate 50 mg tablet 50 mg PO BID 09/08/23 09/08/24 History (Lopressor) montelukast 10 mg tablet 10 mg PO DAILY 09/08/23 09/08/24 History omega 2-wpz-pee-fish oil 1,000 mg 1 cap PO DAILY 09/08/23 09/08/24 History (120 mg-180 mg) capsule (Fish Oil) pravastatin 20 mg tablet 40 mg PO BEDTIME 09/08/23 09/08/24 History Allergies Allergy/AdvReac Type Severity Reaction Status Date / Time alcohol (From Mastisol AdvReac Mild RASH Verified 09/08/24 09:46 Adhesive) amlodipine AdvReac Mild UNKNOWN Verified 09/08/24 09:46 carbamazepine AdvReac Mild UNKNOWN Verified 09/08/24 09:46 divalproex sodium (From AdvReac Mild Unknown Verified 09/08/24 09:46 Depakote) gum mastic (From Mastisol AdvReac Mild UNKNOWN Verified 09/08/24 09:46 Adhesive) Hydantoins AdvReac Mild Unknown Verified 09/08/24 09:46 hydrochlorothiazide AdvReac Mild Unknown Verified 09/08/24 09:46 labetalol AdvReac Mild Unknown Verified 09/08/24 09:46 methyl salicylate (From AdvReac Mild Unknown Verified 09/08/24 09:46 Mastisol Adhesive) mometasone furoate AdvReac Mild Unknown Verified 09/08/24 09:46 nifedipine AdvReac Mild Unknown Verified 09/08/24 09:46 nitrofurantoin AdvReac Mild Unknown Verified 09/08/24 09:46 phenytoin (From Dilantin) AdvReac Mild Unknown Verified 09/08/24 09:46 sertraline AdvReac Mild Unknown Verified 09/08/24 09:46 storax (From Mastisol AdvReac Mild Unknown Verified 09/08/24 09:46 Adhesive) valproic acid AdvReac Mild Unknown Verified 09/08/24 09:46 Exam Constitutional Documenting provider has reviewed patient's vital signs: yes Common normals: no apparent distress, oriented x3, healthy appearing, alert and well nourished General appearance: cooperative HENMT Common normals: normocephalic, hearing grossly normal bilaterally and moist oral mucous membranes Head and scalp: normocephalic Eye Common normals: PERRL Pupil: PERRL Neck & C-Spine Common normals: full ROM General: normal visual inspection Chest Common normals: inspection of chest normal Respiratory Common normals: normal respiratory effort, no retractions and no use of accessory muscles Back & Pelvis Lumbar spine/lower back: straight leg raise negative bilaterally; ROM not limited, no pain with ROM and no lumbar spinal tenderness Other: strength 5/5 in BLE sensation intact BLE Extremity Common normals: normal to inspection and full ROM Neuro Common normals: oriented x3, CN's II-XII intact bilaterally, moves all extremities, no focal motor deficits, no sensory deficits noted and deep tendon reflexes 2+ bilaterally Sensorium/orientation: alert Motor exam: strength 5/5 throughout and no movement abnormalities noted Psych Common normals: mental status grossly normal, thought process normal, cooperative, affect normal, speech normal and activity/motor behavior normal Speech: normal speech Thought process: normal thought process Results Additional Findings Additional findings: T12-L1: Slight disc bulge minimally indents the ventral thecal sac. No high-grade spinal canal narrowing. Advanced right and mild left foraminal narrowing. Mild bilateral facet/ligamentum flavum hypertrophy. L1-L2: Slight disc bulge indents the ventral thecal sac. No high-grade spinal canal narrowing. Mild bilateral foraminal narrowing. Mild bilateral facet/ligamentum flavum hypertrophy. L2-L3: Slight disc bulge minimally indents the ventral thecal sac. No high-grade spinal canal narrowing. Mild bilateral foraminal narrowing. Mild bilateral facet/ligamentum flavum hypertrophy. L3-L4: Slight disc bulge and osteophytic ridging minimally indents the ventral thecal sac. Mild spinal canal narrowing. Moderate bilateral foraminal narrowing. Moderate bilateral facet/ligamentum flavum hypertrophy. L4-L5: No disc bulge or herniation. Mild to moderate spinal canal narrowing. Moderate bilateral foraminal narrowing. Advanced bilateral facet hypertrophy. L5-S1: Slight disc bulge minimally indents the ventral thecal sac. No high-grade spinal canal narrowing. Moderate bilateral foraminal narrowing. Moderate bilateral facet/ligamentum flavum hypertrophy. Suspected right hemilaminectomy changes. Assessment and Plan Assessment and Plan (1) Lumbar spondylosis: (2) Lumbar stenosis with neurogenic claudication: (3) Failed back syndrome: (4) Lumbar degenerative disc disease: (5) Sacroiliac joint dysfunction: Plan repeat bilateral L5-S1 TFESI providing >50% improvement ongoing continue medications through PCP continue HEP as tolerated, continue to utilize rolator walker f/u 3 months, sooner if needed
== END 2024-09-18 11:00 | disposition home or self-care (01) ==
LOC: PM 11:00
PROVIDERS: PCP Family Medicine; Visit Provider Nurse Practitioner
DX: M47.816 Spondylosis without myelopathy or radiculopathy, lumbar region (principal); M48.062 Spinal stenosis, lumbar region with neurogenic claudication; M96.1 Postlaminectomy syndrome, not elsewhere classified; M51.369 Other intervertebral disc degeneration, lumbar region without mention of lumbar back pain or lower extremity pain; M53.3 Sacrococcygeal disorders, not elsewhere classified
CPT/HCPCS: G0463

== ENCOUNTER 2024-11-26 13:35 | Outpatient (OUT) | payer MEDICARE, SELFPAY ==
--- OUTSIDE RECORDS SUMMARY | 2024-11-21 13:15 | XMS_ITS | Encounter Summary ---
Author Organization [facility] Address [address] [place] [address] Care Team Providers Care Retort Furnace Helper Name Role Phone Santosh Chidlress DO Unavailable [phone] Amado Mckenzie MD Primary Care Provider [phone] Reason for Visit * Reason Comments Toenail Care Encounter Details Date Type Department Care Team ([facility] Contact Info) Description 11/21/2024 1:15 PM EDT Procedure Visit [facility] [address] [place] [phone] Santosh Jhaveri DPM [address] [id number] Social History Tobacco Use Types Packs/Day Years [...] Sign Reading Time Taken Comments Blood Pressure 170/91 11/21/2024 1:20 PM EDT Pulse 57 11/21/2024 1:20 PM EDT Temperature - - Respiratory Rate - - Oxygen Saturation - - Inhaled Oxygen Concentration - - Weight - - Height - - Body Mass Index - - documented in this encounter Plan of Treatment Upcoming Encounters Date Type Department Care Team (Late Contact Info) Description 01/26/2025 1:30 PM EST Procedure Visit [facility] [address] [place] [phone] Santosh Jhaveri DPM [address] [place] [address] documented as of this encounter Visit Diagnoses Not on filedocumented in this encounter Care Teams Retort Furnace Helper Relationship Specialty Start Date End Date Amado Mckenzie MD [address] [place] [phone] PCP - General Family Medicine 08/21/24 Santosh Childress DO Referring Physician Neurology 04/21/24 documented as of this encounter
--- OUTSIDE RECORDS SUMMARY | 2024-11-26 13:37 | XMS_ITS | Encounter Summary ---
Author Organization [facility] Address [address] [place] [address] Care Team Providers Care Bail Attacher Name Role Phone Santosh Childress DO Unavailable [phone] Amado Mckenzie MD Primary Care Provider [phone] Encounter Details Date Type Department Care Team (Latest Contact Info) Description 11/21/2024 Travel Social History Tobacco Use Types Packs/Day [...] Care Team (Late st Contact Info) Description 01/26/2025 1:30 PM EST Procedure Visit [facility] [address] [place] [phone] Santosh Jhaveri DPBrittany [address] [place] [address] documented as of this encounter Visit Diagnoses Not on filedocumented in this encounter Care Teams Bail Attacher Relationship Specialty Start Date End Date Amado Mckenzie MD [address] [place] [phone] PCP - General Family Medicine 08/21/24 Santosh Childress DO Referring Physician Neurology 04/21/24 documented as of this encounter
--- OUTSIDE RECORDS SUMMARY | 2024-11-26 13:37 | XMS_ITS | Clinical Summary ---
Author Organization [facility] Address [address] [place] [address] Care Team Providers Care Fleet Service Clerk Name Role Phone Amado Mckenzie Primary Care Provider [phone] Allergies Active Allergy Reactions Criticality Noted Date [...] August 01, 2017 3:16pm 08-01-2017 [facility] ([id number]) 8 Active cetirizine 10 mg ODT Cetirizine Cetirizine Active 10 MG Oral Daily August 01, 2017 3:16pm 08-01-2017 [facility] ([id number]) 8 Active omega 4-eqz-rym-fish oil (FISH OIL) 100-160-1,000 mg cap Take [...] hold HCTZ Coronary artery disease invo lving [place] coronary artery of [place] heart without angina pectoris 05/03/2023 Assessment & Plan (05/04/2023 9:58 AM EST): Assessment: hx of CAD c/b NSTEMI 11/2021 with LETICIA to RCA. Follows with cardiology, per outpatient note patient was recommended to be on indefinite clopidogrel. Last [facility] 11/2021 noting significant calcification in LCx [...] recommended to be on indefinite clopidogrel. Last [facility] 11/2021 noting significant calcification in LCx [...] beer when mowing grass on hot day [facility] Utilities Answer Date Recorded In the past [...] place to sleep or slept in a usp (including now)? No 05/04/2023 Area Deprivation Index Answer Date Alexei rded National Score (1-100), lower number is lower ri sk 65 05/25/2023 State Score (1-10), lower number is lower risk 4 05/25/2023 Data from: https://www.neighborhoodatlas.medicine.[facility].edu/. Last address used for calculation [address] [...] 07/06/2023 1:07 PM EDT Plan of Treatment Health Maintenance Due Date Last Done Comments Anxiety Screening 07[birth year]06/1958 Depression Screening 07/06/1958 Shingrix Vaccine (1 of 2) 07/06/1989 Medicare Annual Wellness Visit 06/11/2003 Bone Density Screening 07/06/2004 RSV Vaccine (1 - 1-dose 75+ series) 07/06/2014 Advance Directive Discussion 03/12/2024 LDL Cholesterol 05/03/2024 05/03/2023 Influenza Vaccine (#1) 2024 , 02/04/2020, 12/17/2019, Additional history exists Diabetes Screening 08/22/2026 08/23/2023, 0 08/23/2023, 08/22/2023, Additional history exists DTaP,Tdap,Td Vaccine (5 - Td or Tdap) 02/23/2031 02/23/2021, 06/18/2017, 12/05/2013, Additional history exists Pneumococcal Vaccine: 50+ Completed 04/04/2019, 07/2014 Medical Devices Implanted Type Area Priest Device Identifier Shelf Expiration Date Model / Serial / Lot Lens Iol 0d +21.5 Enrike Uv Abs - [id number] Implanted:Qty : 1 on 02/20/2020 at [facility] Intraocular Lens Right: Eye [facility] 10/13/2024 [id number] / [id number] / Description:-0.46 Procedures Procedure Name Priority Date/Time Associated Diagnosis Comments COMPREHENSIVE METABOLIC PANEL Routine 05/07/2023 11:13 AM EST LIPID-LIPO PANEL 1 Routine 05/03/2023 1: 23 PM EST from Last 3 Months or Most Recently Relevant to Health Maintenance Results * (ABNORMAL) COMP METABOLIC PANEL (05/07/2023 11:13 AM EST) Pathologist [facility] Protein, Total 6.3 6.3 - 8.0 g/dL 05/07/2023 1:06 PM EST [facility] Albumin 3.7(L) 3.9 - 4.9 g/dL 05/07/2023 1:06 PM EST [facility] Calcium, Total 9.3 8.5 - 10.2 mg/dL 05/07/2023 1:06 PM EST [facility] Bilirubin, Total 0.4 0.2 - 1.3 mg/dL 05/07/2023 1:06 PM EST [facility] Alkaline Phosphatase 55 34 - 123 U/L 05/07/2023 1:06 PM EST [facility] AST 15 13 - 35 U/L 05/07/2023 1:06 PM EST [facility] ALT 9 7 - 38 U/L 05/07/2023 1:06 PM EST [facility] Glucose 91 74 - 99 mg/dL 05/07/2023 1:06 PM EST [facility] Comment: The [place] Diabetes Association (ADA) provides guidance for cutoff [...] Standards of Medical Care in Diabetes 2016, [place] [employer]. Diabetes Care. 2016.39(Suppl 1). BUN 19 7 - 21 mg/dL 05/07/2023 1:06 PM EST [facility] Creatinine 0.73 0.58 - 0.96 mg/dL 05/07/2023 1:06 PM [facility] Sodium 134(L) 136 - 144 mmol/L 05/07/2023 1:06 PM EST [facility] Potassium 4.1 3.7 - 5.1 mmol/L 05/07/2023 1:06 PM EST [facility] Chloride 99 97 - 105 mmol/L 05/07/2023 1:06 PM EST [facility] CO2 24 22 - 30 mmol/L 05/07/2023 1:06 PM [facility] Anion Gap 11 9 - 18 mmol/L 05/07/2023 1:06 PM [facility] Estimated Glomerular Filtration Rate 82 >=60 mL/min/1.7 3m 05/07/2023 1:06 PM [facility] Comment:Estimated Glomerular Filtration Rate (eGFR) [...] us Key Muñoz MD LABORATORY Final Result [facility] [address] [address], * LIPID PANEL, NONFASTING (05/03/2023 1:23 PM EST) Total Cholesterol, Nonfasting 125 <200 mg/dL 05/03/2023 2:11 PM EST [facility] Comment: <200 mg/dL, Desirable 200-239 mg/dL, Borderline high >239 mg/dL, High Triglycerides, Nonfasting 136 <150 mg/dL 05/03/2023 2:11 PM [facility] Comment: <150 mg/dL, Normal 150-199 mg/dL, Borderline high 200-499 mg/dL, High >499 mg/dL, Very high HDL Cholesterol, Nonfasting 40 >39 mg/dL 05/03/2023 2:11 PM [facility] Comment: 40-59 mg/dL, Acceptable >59 mg/dL, High: Negative risk factor for coronary heart disease <40 mg/dL, Low: Positive risk factor for coronary heart disease LDL Cholesterol Calculated, Nonfasting 58 <100 mg/dL 05/03/2023 2:11 PM [facility] Comment: <100 mg/dL, Optimal 100-129 mg/dL, Near optimal/above optimal 130-159 mg/dL, Borderline high 160-189 mg/dL, High >189 mg/dL, Very high Secondary prevention optimal LDL Cholesterol levels are recommended to be < 70 mg/dL Non HDL Cholesterol, Nonfasting 85 <130 mg/dL 05/03/2023 2:11 PM [facility] Comment: <130 mg/dL, Optimal 130-159 mg/dL, Near optimal/above optimal 160-189 mg/dL, Borderline high 190-219 mg/dL, High >219 mg/dL, Very high Secondary prevention optimal non HDL Cholesterol levels are recommended to be <100 mg/dL VLDL Cholesterol, Nonfasting 27 <30 mg/dL 05/03/2023 2:11 PM [facility] Total Chol/HDL Ratio, Nonfasting 3.13 <5.10 mg/dL 05/03/2023 2:11 PM [facility] LDL/HDL Ratio, Nonfasting 1.45 <2.54 mg/dL 05/03/2023 2:11 PM [facility] Comment: Reference: 1. National Cholesterol Education Program ATP III Guideline At-A-Glance Quick Desk Reference: National Heart, Lung, and Blood [place]. National Institutes of Health. 2001: NIH Publication No. 01-3305. 2. An International Atherosclerosis Society position paper: global recommendations for the management of dyslipidemia: executive summary, Atherosclerosis. 2014: 232(2):410-413. Blood BLOOD SPECIMEN / Unknown Venipuncture / Unknown 05/03/2023 1:23 PM EST 05/03/2023 1:30 PM EST us Samer Fili [facility] Final Result [facility] [address] [facility] [address] [place] [address], [place] from Last 3 Months or Most Recently Relevant to Health Maintenance Insurance MEDICARE AET[employer] SUPPLEMENT Advance Directives Documents on File Type Date Recorded Patient Deputy Court Clerk Expl anation Advance Directive(s) 02/20/2020 8:50 AM * Full Code (Latest Code Status on File) Date Activated Date Inactivated Comments 05/03/2023 1:50 PM 05/07/2023 6:27 PM Question Answer Comments Full Code Order Discussed With: Patient Care Teams Fleet Service Clerk Relationship Specialty Start Date End Date Amado Mckenzie DO [address] [place] [phone] PCP - General Family Medicine 07/05/15
--- OUTSIDE RECORDS SUMMARY | 2024-11-26 13:38 | XMS_ITS | Continuity of Care Document ---
Author Organization [facility] Kris quijano. Address [address] [place] [phone] Phone [phone] Care Team Providers Care Meat Boner Name Role Phone Amado Mckenzie Care Team Information Turret Punch Operator [phone] Assessments Date Code Description Provider 07/10/2023 E87.1 [...]
--- OUTSIDE RECORDS SUMMARY | 2024-11-26 13:38 | XMS_ITS | Encounter Summary ---
Author Organization [facility] Address [address] [place] [address] Care Team Providers Care Treater Helper Name Role Phone Amado Mckenzie Primary Care Provider [phone] Source Comments In the event this information is protected by the Federal Confidentiality of Alcohol and Drug AbusePatient Records regulations: The Federal rules restrict any use of the information to criminally investigate or prosecute any alcohol or drug abuse patient.[facility] Encounter Details Date Type Department Care Team (Late st Contact Info) Description 05/14/2023 Patient [facility] [address] [place], [place] [id number] Provider, Ccdanita Virtual Visit Instructions Social History Tobacco Use Types Packs/Day Years Used Date Smoking Tobacco: Former Cigarettes 0.5 10 1 967 - 1976 Smokeless Tobacco: Never Alcohol Use Standard Drinks/Week Comments Yes 0 (1 standard drink = 0.6 oz pur e alcohol) socially wine, beer [facility] Utilities Answer Date Recorded In the past 12 months has th [employer], gas, oil, or water [employer] threatened to shut off services in your [...] place to sleep or slept in a halfway (including now)? No 05/04/2023 Area Deprivation Index Answer Date Alexei rded National Score (1-100), lower number is lower ri sk 62 05/19/2022 State Score (1-10), lower number is lower risk N ot on file 05/19/2022 Data from: https://www.neighborhoodatlas.medicine.[facility].edu/. Last address used for calculation [address] [...] documented in this encounter Plan of Treatment Not on file documented as of this encounter Visit Diagnoses Not on filedocumented in this encounter Care Teams Treater Helper Relationship Specialty Start Date End Date Amado Mckenzie DO [address] [place] [phone] PCP - General Family Medicine 07/05/15 documented as of this encounter
--- OUTSIDE RECORDS SUMMARY | 2024-11-26 13:38 | XMS_ITS | Encounter Summary ---
Author Organization [facility] Address [address] [place] [address] Phone Care Team Providers Care Lathe Turner Name Role Phone Amado Mckenzie DO Primary Care Provider [phone] Encounter Details Date Type Department Care Team (Late st Contact Info) Description 08/01/2022 Orders Only [facility] [address] [place] [address] Conversion, Onbase Social History Tobacco Use Types [...] on filedocumented in this encounter Care Teams Lathe Turner Relationship Specialty Start Date End Date Amado Mckenzie DO [address] [place] [phone] PCP - General 03/12/99 documented as of this encounter
--- OUTSIDE RECORDS SUMMARY | 2024-11-26 13:38 | XMS_ITS | Encounter Summary ---
Author Organization [facility] Address [address] [place] [address] Care Team Providers Care Whale Trainer Name Role Phone Amado Mckenzie Primary Care Provider [phone] Source Comments In the event this information is protected by the Federal Confidentiality of Alcohol and Drug AbusePatient Records regulations: The Federal rules restrict any use of the information to criminally investigate or prosecute any alcohol or drug abuse patient.[facility] Encounter Details Date Type Department Care Team (Late st Contact Info) Description 06/18/2023 Patient [facility] [place] [address] Yahaira Saenz RPh Medication Refill Past Due Social History Tobacco Use Types Packs/Day Years Used Date Smoking Tobacco: Former Cigarettes 0.5 10 1 967 - 1976 Smokeless Tobacco: Never Alcohol Use Standard Drinks/Week Comments Yes 0 (1 standard drink = 0.6 oz pur e alcohol) socially wine, beer [facility] Utilities Answer Date Recorded In the [...] place to sleep or slept in a nursing home (including now)? No 05/04/2023 Area Deprivation Index [...] on filedocumented in this encounter Care Teams Whale Trainer Relationship Specialty Start Date End Date Amado Mckenzie DO [address] [place] [phone] PCP - General Family Medicine 07/05/15 documented as of this encounter
--- OUTSIDE RECORDS SUMMARY | 2024-11-26 13:38 | XMS_ITS | Encounter Summary ---
Author Organization [facility] Address [address] [facility] [place] [address] Care Team Providers Care Corn Press Operator Name Role Phone Amado Mckenzie MD Primary Care Provider [phone] Santosh Childress DO Unavailable [phone] Amado Mckenzie MD Primary Care Provider [phone] Encounter Details Date Type Department Care Team (Late Contact Info) Description 10/02/2023 Abstract [facility] [address] [facility] [address] [place] [address] Unallocated, Noms MD Gillian [address] [place] [address] Social History Tobacco Use Types Packs/Day Years [...] Description 01/26/2025 1:30 PM EST Procedure Visit [facility] [address] [place] [address] Santosh Jhaveri DPM [address] [place] [address] documented as of this encounter Visit Diagnoses Not on filedocumented in this encounter Care Teams Corn Press Operator Relationship Specialty Start Date End Date Amado Mckenzie MD PCP - General Family Medicine 08/17/22 08/20/24 Amado Mckenzie MD [address] [place] [phone] PCP - General Family Medicine 08/21/24 Santosh Childress DO Referring Physician Neurology 04/21/24 documented as of this encounter
--- OUTSIDE RECORDS SUMMARY | 2024-11-26 13:38 | XMS_ITS | Clinical Summary ---
Author Organization [facility] Address [address] [facility] [place] [address] Care Team Providers Care Tennis Court Attendant Name Role Phone Kymberly Cabrera LIBBY Unavailable + [phone] Sly Li MD Unavailable + [phone] Ronald Alvarado MD Unavailable Source Comments The following information is NOT included in Care Everywhere downloads:Psychiatric notes, ECG results, Cardiac Rehab notes, Pulmonary Function notes, data from [employer] (includes but not limited toPregnancy data,audiograms, eye exams, pre-surgical evaluation notes, well-child exam data).[facility] Allergies Active Allergy Reactions Criticality Noted Date Comments Amlodipine Base Other Low 11/06/2012 Hypertension, intolerance Carbamazepine Itching Low 05/01/2003 Tegretal caused itching Phenytoin 08/12/2023 Hydantoins Anaphylactic Shock,Other High 05/01/2003 Other Reaction(s): loss of muscle tone, Unknown Reaction, loss of muscle tone throat swells ,hives Hydrochlorothiazide Hyponatremia High 07/29/2023 Labetalol Other Low 11/06/2012 Intolerance Mastisol Rash Low 09/11/2011 Mometasone Furo-Formoterol Fum Other,Nausea Low 09/15/2014 Falls Nifedipine Other Low 11/06/2012 intolerance Nitrofurantoin Rash Low 04/30/2023 across nose/ cheeks Sertraline Other Medium 07/16/2023 insomnia Valproic Acid Other High 05/01/2003 Daughter states she almost , had an out of body experience Medications albuterol (PROVENTIL HFA) INHALATION HFA inhaler (VENTOLIN,PROA IR,PROVENTIL) 90mcg INHALE 2 PUFFS EVERY 6 HOURS NEEDED FOR WHEEZING Activ e Ascorbic Acid 250 MG CHEW Take by mouth every 12 hours. Active B Complex Vitamins CAPS Take 1 Capsule by mouth daily. Active benzonatate (TESSALON) 200 MG capsule TAKE 1 CAPSULE BY MOUTH THREE TIMES DAILY FOR 10 DAYS NEEDED FOR COUGH 07/11/19 24 Active cetirizine (ZyrTEC) 10 MG tablet Take 10 mg by mouth daily. Active Cholecalcifero l (Vitamin D-3) 25 MCG (1000 UT) CAPS Cholecalciferol (Vitamin D3) Active PO Daily May 14, 2023 1:00am FreeTextSig: Orally Daily; Note: Source Status: Taking; Provider: Michael Yip ( ) 05/14/19 24 Active Coenzyme Q10 (Co Q 10) 100 MG CAPS Take by mouth every 24 hours. Active Cyanocobalamin 1000 MCG CAPS Cyanocobalamin (Vitamin B-12) Active 1000 MCG PO Daily June 28, 2023 12:00am 06/28/19 24 Active DOCOSAHEXAENOI C ACID ORAL Take 1 Capsule by mouth daily. 12/23/19 22 Active ferrous sulfate 325 (65 Fe) MG tablet Take 325 mg by mouth daily. Active gabapentin (NEURONTIN) 300 MG capsule 07/09/19 24 Active guaifenesin (MUCINEX) 600 MG SR tablet Take 1,200 mg by mouth. 07/11/19 24 Active LORazepam (ATIVAN) 0.5 MG tablet Take 0.5 mg by mouth 3 times daily as needed. 07/19/19 24 Active losartan (COZAAR) 50 MG tablet Take 50 mg by mouth. 07/11/19 24 Active Magnesium Oxide 400 MG CAPS Take by mouth daily. Active metoprolol (LOPRESSOR) 25 MG tablet Take 12.5 mg by mouth. 05/07/19 24 Active montelukast (SINGULAIR) 10 MG tablet Take 10 mg by mouth daily. Active nitroglycerin (NITROSTAT) 0.4 MG sublingual tablet Nitroglycerin Active 0.4 MG SUBLINGUAL Q5M April 30, 2023 1:00am 07/26/19 23 Active calcium, elemental, (OSCAL,) 500 MG tablet Take by mouth every 24 hours. Active pravastatin (PRAVACHOL) 40 MG tablet Take 40 mg by mouth daily. Active spironolactone (ALDACTONE) 25 MG tablet Take 1 Tablet by mouth. 06/19/19 24 Active triamterene-hy drochlorothiaz inga (MAXZIDE) 37.5-25 MG tablet Take 1 Tablet by mouth daily. Active vitamin E 400 UNIT capsule Take by mouth every 24 hours. Active melatonin 3 MG TABS tablet Take 1 Tablet by mouth at bedtime. 90 Tablet 08/04/19 24 Active senna (SENOKOT) 8.6 MG tablet Take 1 Tablet by mouth daily as needed. 30 Tablet 08/04/19 24 Active levETIRAcetam (KEPPRA) 100 MG/ML oral solution Take 5 mL by mouth 2 times daily. 240 mL 1 08/24/19 24 Active amantadine (SYMMETREL) 50 MG/5ML SOLN oral syrup 10 mL by NG Tube route 2 times daily. 473 mL 08/24/19 24 Active chlorhexidine (PERIDEX) 0.12 % oral solution Take 15 mL by mouth 2 times daily. 118 mL 3 08/24/19 24 Active multivitamins with minerals (CEROVITE) LIQD oral liquid 15 mL by NG Tube route daily. 236 mL 08/25/19 24 Active polyethylene glycol (MIRALAX) packet Dissolve 1 Packet (17 g total) in 8 ounces of liquid and drink daily. 12 Each 3 08/25/19 24 Active doxazosin (CARDURA) 4 MG tablet Take 1 Tablet by mouth daily. 30 Tablet 08/25/19 24 Active folic acid 1 MG tablet Take 1 Tablet by mouth daily for 2 doses. 2 Tablet 08/25/19 24 Active lisinopril (ZESTRIL) 5 MG tablet Take 1 Tablet by mouth daily. 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 Urinary retention 08/24/2023 Polypharmacy 08/24/2023 Acute radial nerve palsy 08/23/2023 Acute renal insufficiency 08/23/2023 Osteoarthritis 08/23/2023 Bilateral calf pain 08/23/2023 Blurring of visual image 08/23/2023 Chronic pain due to trauma 08/23/2023 Cough, unspecified 08/23/2023 Edema of lower extremity 08/23/2023 Altered mental status, unspe cified altered mental status type 08/13/2023 SDH (subdural hematoma) 08/12/2023 Fall 08/03/2023 Midline shift of brain 08/03/2023 Acute pain due to trauma 08/03/2023 Subdural hematoma 07/29/2023 Contusion of knee 07/29/2023 Acute upper respiratory infection 07/09/2023 Diastolic dysfunction 07/09/2023 Adjustment disorder with depressed mood 06/16/19 Anxiety 06/16/2023 Chills 06/14/2023 Anticoagulation management encounter 05/06/2023 Cerebral amyloid angiopathy 05/05/2023 DVT (deep venous thrombosis) 05/03/2023 Overview (08/23/2023): Last Assessment & Plan: Hx of DVT on eliquis (06/2022). Previously on low dose eliquis 2.5 mg BID. Plan: Hold AC Duplex US BLE Last Assessment & Plan: Hx of DVT on eliquis (06/2022). Previously on low dose eliquis 2.5 mg BID. Plan: Hold AC Duplex US BLE Bilateral carotid artery stenosis 12/29/2022 Acquired dysmorphic toenail 05/19/2022 Calcaneal spur of left foot 05/19/2022 Contusion of right foot 05/19/2022 Acute renal failure 12/15/2021 Disorder of liver 12/15/2021 Chest pain 12/11/2021 Gastroesophageal reflux disease without esophagi tis 12/01/2021 LALY (acute kidney injury) 12/16/2018 At risk for malnutrition 12/15/2018 Benign essential hypertension 12/15/2018 Overview (08/23/2023): Last Assessment & Plan: Assessment: home antiHTN losartan and HCTZ. On losartan 100 mg however her home dose is 25 mg daily Plan: - BP goal as above - losartan, metoprolol tartrate - hold HCTZ Last Assessment & Plan: Assessment: home antiHTN losartan and HCTZ. 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 08/03/2023 Agitation 08/03/2023 08/03/2023 Encounters Date Type Department Care Team Description 09/02/2024 Telephone [facility] [address] [place] [address] Deb Carranza RN from Last 3 Months Immunizations Immunization Administration Dates Next Due Influenza, injectable, quadr ivalent, preservative (KRE=488) 12/20/2017,12/25/2016,12/20/2015 Influenza, injectable, quadr ivalent, preservative free (JXY=895) 12/15/2018 Pneumococcal polysaccharide 23 Valent (PPSV23) (CVX=33) 04/04/2019 Tdap (KWM=386) 02/23/2021,06/18/2017,11/05/2012 Social History Tobacco Use Types Packs/Day Years Used Date Smoking Tobacco: Former Cigarettes Smokeless Tobacco: Never Tobacco Cessation:Counseling Given: Not Answered Comments:2014 Comments No Sex and Gender Information Value Date Recorded Sex Assigned at Not on file Legal Sex Female 11:02 AM EDT Gender Identity Not on file Sexual Orientation Not on file Last Filed Vital Signs Vital Sign Reading Time Taken Comments Blood Pressure 168/70 07/29/2024 11:53 AM EDT Pulse 62 07/29/2024 10:47 AM EDT Temperature 36.8 C (98.3 F) 10/08/2023 5:43 PM EDT Respiratory Rate 19 10/09/2023 2:00 AM EDT Oxygen Saturation 94% 10/09/2023 2:00 AM EDT Inhaled Oxygen Concentration - - Weight 85 kg (187 lb 6.3 oz) 10/08/2023 3:34 PM EDT Height 170.2 cm (5' 7 ) 07/29/2023 3:50 PM EDT Body Mass Index 29.35 07/29/2023 3:50 PM EDT Plan of Treatment Health Maintenance Due Date Last Done Comments Hepatitis A (HAV) Vaccine (optional start 19+ years) 07[birth year]06/1959 Shingles (RZV) Vaccine (1 of 2) 07/06/1989 Hepatitis B (HBV) Vaccine (optional start 60+ years) 1999 Annual Wellness Visit (G0438) 06/10/2004 Bone Densitometry 07/06/2004 RSV vaccine (adult) (1 - 1-d ose 75+ series) 07/06/2014 Pneumococcal Vaccine(s) (50+ yrs) (2 of 2 - PCV) 04/04/2020 04/04/2019 Basic Metabolic Panel 09/07/2024 09/08/2023 , 08/23/2023, 08/22/2023, Additional history exists COVID-19 Vaccine (3 - 2024-2 6 season) 2024 05/04/2020, 04/03/2020 Influenza Vaccine (#1) 2024 , 12/20/2017, 12/25/2016, Additional history exists Tetanus (Td or Tdap) Booster 02/23/2031, 06/18/2017, 11/05/2012 Tdap Booster Completed 02/23/2021, 0411/2017, 11/05/2012 Pap Smear Discontinued Medical Devices Implanted Type Area Engineer Exhauster Device Identifier Shelf Expiration Date Model / Serial / Lot Coil Embl 3-2mm Trnd Mciol Ea1 Mwce-18s-3/2-To rnado- - [id number] Implanted:Qty: 1 on 08/15/2023 by Royce Casarez MD at INPATIENT UNITS Left: Brain Cook 04/12/2028 MWCE-18S-3/ 2-TORNADO-0 [id number] Coil Embl 3-2mm Trnd Mciol Ea1 Mwce-18s-3/2-To rnado- - [id number] Implanted:Qty: 1 on 08/15/2023 by Royce Casarez MD at INPATIENT UNITS Left: Brain Cook 04/12/2028 MWCE-18S-3/ 2-TORNADO-0 [id number] Coil Embl 3-2mm Trnd Mciol Ea1 Mwce-18s-3/2-To rnado- - [id number] Implanted:Qty: 1 on 08/15/2023 by Royce Casarez MD at INPATIENT UNITS Left: Brain Cook 04/12/2028 MWCE-18S-3/ 2-TORNADO-0 [id number] Procedures Procedure Name Priority Date/Time Associated Diagnosis Comments BASIC METABOLIC PANEL Routine 08/23/2023 2:59 AM EDT from Last 3 Months or Most Recently Relevant to Health Maintenance Results * (ABNORMAL) BASIC METABOLIC PANEL (08/23/2023 2:59 AM EDT) Glucose 104 74 - 109 mg/dL 08/23/2023 3:40 AM EDT [facility] Sodium 136 136 - 145 mmol/L 08/23/2023 3:40 AM EDT [facility] Potassium 4.1 3.5 - 5.0 mmol/L 08/23/2023 3:40 AM EDT [facility] Carbon Dioxide 26 21 - 31 mmol/L 08/23/2023 3:40 AM EDT [facility] Chloride 102 98 - 107 mmol/L 08/23/2023 3:40 AM EDT [facility] Blood Urea Nitrogen 25 7 - 25 mg/dL 08/23/2023 3:40 AM EDT [facility] Creatinine 0.59(L) 0.60 - 1.20 mg/dL 08/23/2023 3:40 AM EDT [facility] Calcium 9.0 8.6 - 10.3 mg/dL 08/23/2023 3:40 AM EDT [facility] Anion Gap 12 10 - 20 08/23/2023 3:40 AM EDT [facility] Estimated GFR (CKD-EPI) 89 >=60 mL/min/1. 73sqm 08/23/2023 3:40 AM EDT [facility] Comment: 2020 CKD EPI Equation using Creatinine without Race Comment: Estimated glomerular filtration rate (eGFR) is calculated without a race coefficient. Values should be interpreted in the context of the patient's full clinical presentation. Reference: 1. Nestor C, Isabella M, Kaz FUENTES, et al.. A Unifying Approach for GFR Estimation: Recommendations of the NKF-ASN Task Force on Reassessing the Inclusion of Race in Diagnosing Kidney Disease. [place] Journal of Kidney Diseases 202;79(2):268- 88.e1. 2. N Engl J Med 2021 Vol. 385 Issue 19 Pages 4186-0763 Blood BLOOD SPECIMEN / Unknown Venipuncture / Unknown 08/23/2023 2:59 AM EDT 08/23/2023 3:13 AM EDT Cheikh Abraham MD 98 GENERAL LAB Final Result [facility] [address] [place] [address] from Last 3 Months or Most Recently Relevant to Health Maintenance Insurance MEDICARE COMMERCIAL INSURANCE - OTHER MEDICARE COMMERCIAL INSURANCE - OTHER MEDICARE COMMERCIAL INSURANCE - OTHER MEDICARE COMMERCIAL INSURANCE - OTHER Advance Directives * Full Code (Latest Code Status on File) Date Activated Date Inactivated Comments 08/13/2023 2:10 AM 08/24/2023 4:45 PM Question Answer Comments Documentation of decision pr ocess for this code status: Discussed with patient or surrogate. This is the code status chosen by the patient/surrogate. * Full Code Date Activated Date Inactivated Comments 07/29/2023 4:47 PM 08/04/2023 12:54 PM Question Answer Comments Documentation of decision pr ocess for this code status: Patient and surrogate unable or unavailable to discuss. There is no previous documentation of code status. Defaulting to Full Code Care Teams Tennis Court Attendant Relationship Specialty Start Date End Date Kymberly Cabrera APRN-GROCERY TEAM MEMBER [address] [place] [address] MANAGER BILLING Urology 09/15/23 Sly Li MD [address] [place] [address] Physician Neurosurgery 11/17/23 Ronald Alvarado MD [address] [place] [address] Physician Neurology 08/16/24
--- OUTSIDE RECORDS SUMMARY | 2024-11-26 13:38 | XMS_ITS | Encounter Summary ---
Author Organization [facility] Address [address] [place] [address] Phone Care Team Providers Care Integration Software Engineer Name Role Phone Amado Mckenzie DO Primary Care Provider [phone] Encounter Details Date Type Department Care Team (Late st Contact Info) Description 06/29/2022 Orders Only [facility] [address] [place] [address] Conversion, Onbase Social History Tobacco Use Types [...] on filedocumented in this encounter Care Teams Integration Software Engineer Relationship Specialty Start Date End Date Amado Mckenzie DO [address] [place] [address] PCP - General 03/12/99 documented as of this encounter
--- OUTSIDE RECORDS SUMMARY | 2024-11-26 13:38 | XMS_ITS | Encounter Summary ---
Author Organization [facility] Address [address] [place] [address] Phone Care Team Providers Care Equipment Service Technician Name Role Phone Amado Mckenzie DO Primary Care Provider [phone] Encounter Details Date Type Department Care Team (Late st Contact Info) Description 12/20/2021 Orders Only [facility] [address] [place] [address] Conversion, Onbase Social History Tobacco Use Types [...] on filedocumented in this encounter Care Teams Equipment Service Technician Relationship Specialty Start Date End Date Amado Mckenzie DO [address] [facility] [address] [place] [address] PCP - General 03/12/99 documented as of this encounter
--- OUTSIDE RECORDS SUMMARY | 2024-11-26 13:38 | XMS_ITS | Encounter Summary ---
Author Organization [facility] Address [address] [facility] [place] [address] Care Team Providers Care Nursery Attendant Name Role Phone Amado Mckenzie MD Primary Care Provider [phone] Santosh Childress DO Unavailable [phone] Amado Mckenzie MD Primary Care Provider [phone] Encounter Details Date Type Department Care Team (Late Contact Info) Description 09/27/2023 Abstract [facility] [address] [facility] [address] [place] [address] Unallocated, Noms MD Gillian [address] [place] [address] Social History Tobacco Use Types Packs/Day Years [...] Procedure Visit [facility] [address] [place] [address] Santosh Jhaveri DPM [address] [place] [address] documented as of this encounter Visit Diagnoses Not on filedocumented in this encounter Care Teams Nursery Attendant Relationship Specialty Start Date End Date Amado Mckenzie MD PCP - General Family Medicine 08/17/22 08/20/24 Amado Mckenzie MD [address] [place] [phone] PCP - General Family Medicine 08/21/24 Santosh Childress DO Referring Physician Neurology 04/21/24 documented as of this encounter
--- OUTSIDE RECORDS SUMMARY | 2024-11-26 13:38 | XMS_ITS | Clinical Summary ---
Author Organization [facility] Address [address] [facility], [address] [place] [address] Care Team Providers Care Refrigerating Engineer Name Role Phone Amado Mckenzie Primary Care Provider [phone] Allergies Active Allergy Reactions Criticality Noted Date [...] 11:15 PM 12/18/2018 8:39 PM Care Teams Refrigerating Engineer Relationship Specialty Start Date End Date Amado Mckenzie DO PCP - General Family Medicine 12/15/18
--- OUTSIDE RECORDS SUMMARY | 2024-11-26 13:38 | XMS_ITS | Encounter Summary ---
Author Organization [facility] Address [address] [facility] [place] [address] Care Team Providers Care Entertainment Production Professional Name Role Phone Amado Mckenzie MD Primary Care Provider [phone] Santosh Childress DO Unavailable [phone] Amado Mckenzie MD Primary Care Provider [phone] Encounter Details Date Type Department Care Team (Late Contact Info) Description 10/10/2023 Abstract [facility] [address] [facility] [address] [place] [address] Unallocated, Noms MD Gillian [address] [place] [address] Social History Tobacco Use Types Packs/Day Years [...] Procedure Visit [facility] [address] [place] [address] Santosh Jhaveri DPM [address] [place] [address] documented as of this encounter Visit Diagnoses Not on filedocumented in this encounter Care Teams Entertainment Production Professional Relationship Specialty Start Date End Date Amado Mckenzie MD PCP - General Family Medicine 08/17/22 08/20/24 Amado Mckenzie MD [address] [place] [phone] PCP - General Family Medicine 08/21/24 Santosh Childress DO Referring Physician Neurology 04/21/24 documented as of this encounter
--- OUTSIDE RECORDS SUMMARY | 2024-11-26 13:38 | XMS_ITS | Clinical Summary ---
Author Organization [facility] Address [address] [place] [address] Care Team Providers Care Chute Worker Name Role Phone MonroeDavidliaabigail DO Unavailable [phone] Amado Mckenzie MD Primary Care Provider [phone] Allergies Active Allergy Reactions Criticality Noted Date [...] angiopathy 05/05/2023 Coronary artery disease invo lving [place] coronary artery of [place] heart without angina pectoris 05/03/2023 Overview (05/29/2023): [...] Encounters Date Type Department Care Team Description 11/21/2024 1:15 PM EDT Procedure Visit [facility] [address] [facility] [place] [address] Santosh Jhaveri, SEAN 11/21/2024 Bamboo flowsheet [facility] [address] [place] [address] Santosh Jhaveri DPM 11/21/2024 Travel from Last 3 Months Immunizations Immunization [...] Description 01/26/2025 1:30 PM EST Procedure Visit [facility] [address] [place] [address] Santosh Jhaveri DPM [address] [place] [address] Health Maintenance Due Date Last Done Comments Pneumococcal Vaccine: 65+ Ye ars (2 of 2 - PCV) 04/04/2020 04/04/2019 Influenza Vaccine (#1) 2024 , 02/04/2020, 12/15/2018, Additional history exists Insurance MEDICARE AET Care Teams Chute Worker Relationship Specialty Start Date End Date Amado Mckenzie MD [address] [place] [phone] PCP - General Family Medicine 08/21/24 Santosh Childress DO Referring Physician Neurology 04/21/24
--- OUTSIDE RECORDS SUMMARY | 2024-11-26 13:38 | XMS_ITS | Clinical Summary ---
Author Organization [facility] Address [address] [place] [address] Phone Care Team Providers Care Green Chain Offbearer Name Role Phone Amado Mckenzie DO Primary Care Provider [phone] Allergies Active Allergy Reactions Criticality Noted Date Comments Carbamazepine Unknown 12/29/2022 Labetalol Unknown 12/29/2022 Nifedipine Unknown 12/29/2022 Phenytoin Unknown 12/29/2022 Valproic Acid Unknown 12/29/2022 Medications metoprolol tartrate (Lopressor) 25 mg tablet Take 0.5 tablets (12.5 mg) by mouth 2 times a day. Active omega 6-nib-ugu-fish oil (Fish OiL) 300-1,000 mg capsule,delayed release(DR/EC) [...] Health Maintenance Due Date Last Done Comments Creatinine Level 1939 Lipid Panel 1940 Potassium Level 1939 DTaP/Tdap/Td Vaccines (1 - Tdap) 07/06/1961 Zoster Vaccines (1 of 2) 07/06/1989 Bone Density Scan 07/06/2004 RSV High Risk: (Elderly (60+ ) or Population) (1 - 1-dose 75+ series) 07/06/2014 Medicare Annual Wellness Vis it (AWV) 12/21/2018 12/20/2017, 05/30/2016 Pneumococcal Vaccine (2 of 2 - PCV) 04/04/2020 04/04/2019 Echocardiogram 11/24/2022 11/24/2021 COVID-19 Vaccine (1 - 2023-2 5 season) 2024 Influenza Vaccine (#1) 2024 HIB Vaccines Aged Out No longer eligi ble based on patient's age to complete this topic HPV Vaccines Aged Out No longer eligi ble based on patient's age to complete this topic Hepatitis A Vaccines Aged Out No long [...] on patient's age to complete this topic Procedures Procedure Name Priority Date/Time Associated Diagnosis Comments ECHOCARDIOGRAM 11/24/2021 from Last 3 Months or Most Recently Relevant to Health Maintenance Results * ECHOCARDIOGRAM (11/24/2021) Narrative 11/24/2021 Ordered by an unspecified provider. us Onbase Conversion CV ECHO PROCEDURES Final Resul t from Last 3 Months or Most Recently Relevant to Health Maintenance Insurance [address] [place] [phone] MEDICARE PART A AND B Care Teams Green Chain Offbearer Relationship Specialty Start Date End Date Amado Mckenzie DO [address] [address] PCP - General 03/12/99
--- OUTSIDE RECORDS SUMMARY | 2024-11-26 13:38 | XMS_ITS | Clinical Summary ---
Author Organization [email or web address] [facility] Address [id number] [address] [id number] Care Team Providers Care Vacuum Repairer Name Role Phone Unavailable Primary Care Provider [...] 07/06/1989 Fall Risk Screening 07/06/2004 COVID-19 Vaccine (2024-2 6 season) 2024 05/04/2020, 04/03/2020 Influenza Vaccine 11/10/2024 02/09/2021, , 12/15/2018, Additional history exists DTaP,Tdap and Td Vaccines (4 - Td or Tdap) 02/23/2031 02/23/2021, 06/18/2017, 12/05/2013 Medical Devices Not on file Insurance [facility] MEDICARE
--- NOTE | 2024-11-26 13:50 | PM.CN ---
Consult Note: HPI Data of Consult Patient: known to practice within the last 3 years Consult date: 11/26/24 Requesting Physician: Zuleima Valdivia NP Primary Care Provider: HARDEEP SUÁREZ Consult Narrative Reason for consult: chronic low back pain Narrative: Carly Marcelino a pleasant 84 year old female presents for evaluation and management of severe low back pain. pt has a longstanding hx of low back pain, previous lumbar surgery per pt but known type, and recently engaged in PT greater than 6 weeks without benefit. lumbar xray consistent with multilevel facet arthropathy and DDD. hx of T12 compression fx. recently underwent lumbar MRI with results below pt currently on baclofen 5mg PRN, tramadol 50mg TID PRN, gabapentin 300mg TID, and tylenol 325-650mg PRN with benefit without side effects. Avoids NSAIDs. CCEIL 27%, moderate pain with standing, walking, ADLs, pain impacting sleep and social life/travel. Pts PCP would like us to take over gabapentin and tramadol. cc:: CC: Zuleima Valdivia NP Review of Systems ROS Musculoskeletal Reports: back pain and joint pain; Denies: extremity pain PFSH PFSH Medical History Osteoarthritis ?M19.90 - Unspecified osteoarthritis, unspecified site (ICD-10) Seizure ?R56.9 - Unspecified convulsions (ICD-10) Asthma ?J45.909 - Unspecified asthma, uncomplicated (ICD-10) HTN (hypertension) ?I10 - Essential (primary) hypertension (ICD-10) Surgical History History of foot surgery ?Z98.890 - Other specified postprocedural states (ICD-10) History of total knee arthroplasty ?Z96.659 - Presence of unspecified artificial knee joint (ICD-10) History of tonsillectomy and adenoidectomy ?Z90.89 - Acquired absence of other organs (ICD-10) History of pharyngoplasty ?Z98.890 - Other specified postprocedural states (ICD-10) History of back surgery ?Z98.890 - Other specified postprocedural states (ICD-10) History of breast biopsy ?Z98.890 - Other specified postprocedural states (ICD-10) History of total shoulder replacement ?Z96.619 - Presence of unspecified artificial shoulder joint (ICD-10) Meds Home Medications and Allergies Home Medications ?Medication ?Instructions ?Recorded ?Confirmed ?Type alprazolam 0.25 mg tablet 0.5 mg PO BID PRN anxiety 09/08/23 09/08/24 History calcium carbonate (Oyster Shell 500 mg PO DAILY 09/08/23 09/08/24 History Calcium) cetirizine 10 mg tablet (24Hour 10 mg PO DAILY 09/08/23 09/08/24 History Allergy) cyanocobalamin (vitamin B-12) 1,000 mcg PO DAILY 09/08/23 09/08/24 History 1,000 mcg capsule docusate sodium 100 mg capsule 100 mg PO BID 09/08/23 09/08/24 History (Col-Rite) ferrous sulfate 325 mg (65 mg 325 mg PO DAILY 09/08/23 09/08/24 History iron) tablet (FeroSul) gabapentin 300 mg capsule 300 mg PO Q8H 09/08/23 09/08/24 History lisinopril 5 mg tablet 2.5 mg PO BEDTIME 09/08/23 09/08/24 History losartan 50 mg tablet 50 mg PO DAILY 09/08/23 09/08/24 History magnesium 200 mg tablet 400 mg PO DAILY 09/08/23 09/08/24 History metoprolol tartrate 50 mg tablet 50 mg PO BID 09/08/23 09/08/24 History (Lopressor) montelukast 10 mg tablet 10 mg PO DAILY 09/08/23 09/08/24 History omega 2-mkk-mdk-fish oil 1,000 mg 1 cap PO DAILY 09/08/23 09/08/24 History (120 mg-180 mg) capsule (Fish Oil) pravastatin 20 mg tablet 40 mg PO BEDTIME 09/08/23 09/08/24 History Allergies Allergy/AdvReac Type Severity Reaction Status Date / Time alcohol (From Mastisol AdvReac Mild RASH Verified 09/08/24 09:46 Adhesive) amlodipine AdvReac Mild UNKNOWN Verified 09/08/24 09:46 carbamazepine AdvReac Mild UNKNOWN Verified 09/08/24 09:46 divalproex sodium (From AdvReac Mild Unknown Verified 09/08/24 09:46 Depakote) gum mastic (From Mastisol AdvReac Mild UNKNOWN Verified 09/08/24 09:46 Adhesive) Hydantoins AdvReac Mild Unknown Verified 09/08/24 09:46 hydrochlorothiazide AdvReac Mild Unknown Verified 09/08/24 09:46 labetalol AdvReac Mild Unknown Verified 09/08/24 09:46 methyl salicylate (From AdvReac Mild Unknown Verified 09/08/24 09:46 Mastisol Adhesive) mometasone furoate AdvReac Mild Unknown Verified 09/08/24 09:46 nifedipine AdvReac Mild Unknown Verified 09/08/24 09:46 nitrofurantoin AdvReac Mild Unknown Verified 09/08/24 09:46 phenytoin (From Dilantin) AdvReac Mild Unknown Verified 09/08/24 09:46 sertraline AdvReac Mild Unknown Verified 09/08/24 09:46 storax (From Mastisol AdvReac Mild Unknown Verified 09/08/24 09:46 Adhesive) valproic acid AdvReac Mild Unknown Verified 09/08/24 09:46 Exam Constitutional Documenting provider has reviewed patient's vital signs: yes Common normals: no apparent distress, oriented x3, healthy appearing, alert and well nourished General appearance: cooperative HENMT Common normals: normocephalic, hearing grossly normal bilaterally and moist oral mucous membranes Head and scalp: normocephalic Eye Common normals: PERRL Pupil: PERRL Neck & C-Spine Common normals: full ROM General: normal visual inspection Chest Common normals: inspection of chest normal Respiratory Common normals: normal respiratory effort, no retractions and no use of accessory muscles Back & Pelvis Thoracic spine/upper back: ROM limited, pain with ROM and thoracic spinal tenderness Lumbar spine/lower back: ROM limited, pain with ROM, lumbar spinal tenderness and straight leg raise negative bilaterally Sacroiliac joints: SI joints normal Neuro Common normals: oriented x3 Sensorium/orientation: alert Psych Common normals: mental status grossly normal, thought process normal, cooperative, affect normal, speech normal and activity/motor behavior normal Speech: normal speech Thought process: normal thought process Results Additional Findings Additional findings: If on a controlled substance or opioids, I have checked an [place]AR[place] report on this patient and there are no aberrancies noted in the prescribing history.??If on a controlled substance or opioid a drug screen was completed and reviewed within the last year, and if there has not been a drug screen completed we ordered one today to monitor higher risk, state monitored pain medication use. As part of providing excellent, safe, comprehensive care, the following was completed at our patient's visit: 1. A medication reconciliation and review to ensure accurate knowledge of current/active medications, including asking our patients to inform us about any qfls-xtp-mtasyal medications or herbal remedies/nutritional supplements/alternative remedies. 2. A review to specifically ensure our patients have had annual screening for screening for depression, screening for tobacco use, and screening for unhealthy alcohol use. For concerning screenings had a discussion with the patient, provided patient education, and recommended follow-up with primary care provider when appropriate. If patient noted with a risk of falling, they received education on strength, gait, and balance training to prevent future risk of falling. Portions of this note may have been carried over from the previous visit and updated as appropriate. Please note this office utilizes paper charting in addition to the electronic medical record. A list of current medications, vitals, and PMH is available there as the clinical staff outside of myself do not have access to [employer] charting during the clinic day operations. As part of providing quality comprehensive care the current medications, vitals, and PMH were reviewed in the paper chart. Assessment and Plan Assessment and Plan (1) Lumbar spondylosis: Assessment and Plan: >50% improvement ongoing from prior lumbar RFAs (2) Lumbar stenosis with neurogenic claudication: Assessment and Plan: symptoms well controlled at this time (3) Osteoarthritis: (4) Failed back syndrome: (5) Sacroiliitis: Plan Lengthy conversation today regarding medication management, pt does utilize tramadol 50mg 1x-3x/day PRN based on pain and activity. she reports moderate relief without side effects for 4-6 hours. utilizes gabapentin 300mg TID without side effects. update UDS today. update narcan script. continue to utilize walker/assistive device. will decrease tramadol 50mg up to TID PRN moderate to severe pain 75 tabs to last 30 days. risks vs benefits reviewed. f/u 1 month to assess pain and plan of care.
== END 2024-11-26 13:36 | disposition home or self-care (01) ==
LOC: PM 13:35
PROVIDERS: PCP Family Medicine; Visit Provider Nurse Practitioner
DX: M47.816 Spondylosis without myelopathy or radiculopathy, lumbar region (principal); M48.062 Spinal stenosis, lumbar region with neurogenic claudication; M19.90 Unspecified osteoarthritis, unspecified site; M46.1 Sacroiliitis, not elsewhere classified; M96.1 Postlaminectomy syndrome, not elsewhere classified
CPT/HCPCS: G0463

== ENCOUNTER 2024-12-18 11:48 | Outpatient (OUT) | payer MEDICARE, SELFPAY ==
--- NOTE | 2024-12-18 12:31 | PM.CN ---
Consult Note: HPI Data of Consult Patient: known to practice within the last 3 years Consult date: 12/18/24 Requesting Physician: Zuleima Valdivia NP Primary Care Provider: HARDEEP SUÁREZ Consult Narrative Reason for consult: chronic low back pain Narrative: Carly Marcelino a pleasant 84 year old female presents for evaluation and management of severe low back pain. pt has a longstanding hx of low back pain, previous lumbar surgery per pt but known type, and recently engaged in PT greater than 6 weeks without benefit. lumbar xray consistent with multilevel facet arthropathy and DDD. hx of T12 compression fx. recently underwent lumbar MRI with results below pt currently on baclofen 5mg PRN, tramadol 50mg TID PRN, gabapentin 300mg TID, and tylenol 325-650mg PRN with benefit without side effects. Avoids NSAIDs. CECIL 38%, moderate pain with standing, walking, ADLs, pain impacting sleep and social life/travel. per pt her PCP is going to maintain her gabapentin. prior bilateral L5-S1 TFESI under fluoroscopy provided >50% improvement for 3 months, pt interested in repeating. cc:: CC: Zuleima Valdivia NP [facility] Medical History Osteoarthritis ?M19.90 - Unspecified osteoarthritis, unspecified site (ICD-10) Seizure ?R56.9 - Unspecified convulsions (ICD-10) Asthma ?J45.909 - Unspecified asthma, uncomplicated (ICD-10) HTN (hypertension) ?I10 - Essential (primary) hypertension (ICD-10) Surgical History History of foot surgery ?Z98.890 - Other specified postprocedural states (ICD-10) History of total knee arthroplasty ?Z96.659 - Presence of unspecified artificial knee joint (ICD-10) History of tonsillectomy and adenoidectomy ?Z90.89 - Acquired absence of other organs (ICD-10) History of pharyngoplasty ?Z98.890 - Other specified postprocedural states (ICD-10) History of back surgery ?Z98.890 - Other specified postprocedural states (ICD-10) History of breast biopsy ?Z98.890 - Other specified postprocedural states (ICD-10) History of total shoulder replacement ?Z96.619 - Presence of unspecified artificial shoulder joint (ICD-10) Meds Home Medications and Allergies Home Medications ?Medication ?Instructions ?Recorded ?Confirmed ?Type cetirizine 10 mg tablet (24Hour 10 mg PO DAILY 09/08/23 09/08/24 History Allergy) docusate sodium 100 mg capsule 100 mg PO BID 09/08/23 09/08/24 History (Col-Rite) ferrous sulfate 325 mg (65 mg 325 mg PO DAILY 09/08/23 09/08/24 History iron) tablet (FeroSul) gabapentin 300 mg capsule 300 mg PO Q8H 09/08/23 09/08/24 History lisinopril 5 mg tablet 5 mg PO BEDTIME 09/08/23 11/26/24 History metoprolol tartrate 50 mg tablet 50 mg PO BID 09/08/23 09/08/24 History (Lopressor) montelukast 10 mg tablet 10 mg PO DAILY 09/08/23 09/08/24 History pravastatin 20 mg tablet 40 mg PO BEDTIME 09/08/23 09/08/24 History baclofen 5 mg tablet 5 mg 11/26/24 History tramadol 50 mg tablet 50 mg PO PRN 11/26/24 11/26/24 History Allergies Allergy/AdvReac Type Severity Reaction Status Date / Time alcohol (From Mastisol AdvReac Mild RASH Verified 09/08/24 09:46 Adhesive) amlodipine AdvReac Mild UNKNOWN Verified 09/08/24 09:46 carbamazepine AdvReac Mild UNKNOWN Verified 09/08/24 09:46 divalproex sodium (From AdvReac Mild Unknown Verified 09/08/24 09:46 Depakote) gum mastic (From Mastisol AdvReac Mild UNKNOWN Verified 09/08/24 09:46 Adhesive) Hydantoins AdvReac Mild Unknown Verified 09/08/24 09:46 hydrochlorothiazide AdvReac Mild Unknown Verified 09/08/24 09:46 labetalol AdvReac Mild Unknown Verified 09/08/24 09:46 methyl salicylate (From AdvReac Mild Unknown Verified 09/08/24 09:46 Mastisol Adhesive) mometasone furoate AdvReac Mild Unknown Verified 09/08/24 09:46 nifedipine AdvReac Mild Unknown Verified 09/08/24 09:46 nitrofurantoin AdvReac Mild Unknown Verified 09/08/24 09:46 phenytoin (From Dilantin) AdvReac Mild Unknown Verified 09/08/24 09:46 sertraline AdvReac Mild Unknown Verified 09/08/24 09:46 storax (From Mastisol AdvReac Mild Unknown Verified 09/08/24 09:46 Adhesive) valproic acid AdvReac Mild Unknown Verified 09/08/24 09:46 Exam Constitutional Documenting provider has reviewed patient's vital signs: yes Common normals: no apparent distress, oriented x3, healthy appearing, alert and well nourished General appearance: cooperative HENMT Common normals: normocephalic, hearing grossly normal bilaterally and moist oral mucous membranes Head and scalp: normocephalic Eye Common normals: PERRL Pupil: PERRL Neck & C-Spine Common normals: full ROM General: normal visual inspection Chest Common normals: inspection of chest normal Respiratory Common normals: normal respiratory effort, no retractions and no use of accessory muscles Back & Pelvis Thoracic spine/upper back: ROM limited, pain with ROM and thoracic spinal tenderness Lumbar spine/lower back: ROM limited, pain with ROM, lumbar spinal tenderness, straight leg raise positive right and straight leg raise positive left Sacroiliac joints: SI joints normal Other: decreased sensation bilateral L5/S1 strength 4/5 in BLE Neuro Common normals: oriented x3 Sensorium/orientation: alert Psych Common normals: mental status grossly normal, thought process normal, cooperative, affect normal, speech normal and activity/motor behavior normal Speech: normal speech Thought process: normal thought process Results Additional Findings Additional findings: If on a controlled substance or opioids, I have checked an OARRS report on this patient and there are no aberrancies noted in the prescribing history.??If on a controlled substance or opioid a drug screen was completed and reviewed within the last year, and if there has not been a drug screen completed we ordered one today to monitor higher risk, state monitored pain medication use. As part of providing excellent, safe, comprehensive care, the following was completed at our patient's visit: 1. A medication reconciliation and review to ensure accurate knowledge of current/active medications, including asking our patients to inform us about any [id number]-cpv-xauqtso medications or herbal remedies/nutritional supplements/alternative remedies. 2. A review to specifically ensure our patients have had annual screening for screening for depression, screening for tobacco use, and screening for unhealthy alcohol use. For concerning screenings had a discussion with the patient, provided patient education, and recommended follow-up with primary care provider when appropriate. If patient noted with a risk of falling, they received education on strength, gait, and balance training to prevent future risk of falling. Portions of this note may have been carried over from the previous visit and updated as appropriate. Please note this office utilizes paper charting in addition to the electronic medical record. A list of current medications, vitals, and PMH is available there as the clinical staff outside of myself do not have access to [employer] charting during the clinic day operations. As part of providing quality comprehensive care the current medications, vitals, and PMH were reviewed in the paper chart. Assessment and Plan Assessment and Plan (1) Lumbar stenosis with neurogenic claudication: (2) Failed back syndrome: (3) Lumbar radiculopathy: (4) Lumbar degenerative disc disease: (5) Lumbar spondylosis: (6) Chronic use of opiate drug for therapeutic purpose: Assessment and Plan: I feel these medications are improving the patient's quality of life and allow them to tolerate activities of daily living as well as participate in recreational activity.? The patient does not report intolerable side effects. The patient is NOT opioid naive and non-pharmacologic and non-opioid treatment has failed to significantly relieve the patient's pain and improve functionality. The patient has a diagnosis that is related to a somatic or visceral pain etiology. ? ?? I reviewed with the patient the potential risks and side effects with the use of? opioid medications including but not limited to respiratory depression,? sedation, and even . Within the last 12 months I have verified the patient has access to naloxone should? these effects occur. The patient was advised to let? their family know they had Naloxone in case they would need to administer? the medication. I advised the patient to avoid the use of any other? sedation substances including alcohol, THC, and benzodiazepines while? taking opioid medications due to the risk of compounding side effects and? detrimental outcomes. within the last 12 months I have reviewed the [employer], pain treatment agreement and urine drug screen.? ?? A drug screen was completed within the last year, and no aberrancies were noted regarding their use of controlled substances. The patient understands they are subject to the terms and conditions of the pain contract that they have signed. ? ?? I have checked an OARRS report on this patient today and there are no aberrancies noted in the prescribing history.? Plan The patient has had over 3 months of moderate to severe low back and BLE pain with functional impairment and inadequate response to conservative care including NSAIDS (unless there are contraindication such as concurrent blood thinners), multiple oral or topical pain medications, and home exercise program/physical therapy.? Patient has completed >6 weeks of guided home exercise program and/or formal physical therapy program without relief of their symptoms.? I have reviewed the imaging of the lumbar spine and no red flags were identified.? The imaging reveals radiographic findings consistent with lumbar stenosis with NC, lumbar spondylosis, lumbar ddd The Oswestry Disability Index was completed, and the patient scored a 38%.? repeat bilateral L5-S1 TFESI under fluoroscopy take over tramadol 50mg BID-TID PRN moderate to severe pain, 75 tabs to last 30 days continue baclofen 5mg hs prn pain/spasms continue gabapentin 300mg TID continue HEP as tolerated f/u after injection
== END 2024-12-18 11:49 | disposition home or self-care (01) ==
LOC: PM 11:50
PROVIDERS: PCP Family Medicine; Visit Provider Nurse Practitioner
DX: M48.062 Spinal stenosis, lumbar region with neurogenic claudication (principal); M96.1 Postlaminectomy syndrome, not elsewhere classified; M54.16 Radiculopathy, lumbar region; M51.369 Other intervertebral disc degeneration, lumbar region without mention of lumbar back pain or lower extremity pain; M47.816 Spondylosis without myelopathy or radiculopathy, lumbar region; Z79.891 Long term (current) use of opiate analgesic
CPT/HCPCS: G0463

== ENCOUNTER 2025-01-05 09:19 | Day surgery (SDC) | payer MEDICARE, SELFPAY ==
--- OUTSIDE RECORDS SUMMARY | 2025-01-05 09:24 | XMS_ITS | Clinical Summary ---
Author Organization [facility] Address [address] [place] [address] Care Team Providers Care Brick Pointer Name Role Phone CabreraGarretlindsey SOUZA Unavailable + [phone] Sly Li MD Unavailable + [phone] Ronald Alvarado MD Unavailable Source Comments The following information is NOT included in Care Everywhere downloads:Psychiatric notes, ECG results, Cardiac Rehab notes, Pulmonary Function notes, data from [facility] (includes but not limited toPregnancy data,audiograms, eye exams, pre-surgical evaluation notes, well-child exam data).[facility] Allergies Active AllergyReactionsCriticalityNoted DateCommentsAmlodipine BaseOtherLow 11/06/2012 Hypertension, intolerance SstxyznepiounLvdsyczUdp22/20/2004 Tegretal caused itching Ojrsasntc12/02/2024HydantoinsAnaphylactic Shock,CwvzkGvac79/20/2004 Other Reaction(s): loss of muscle tone, Unknown Reaction, loss of muscle tone throat swells ,hives YejfleynnblcjfkwrarIxaizdbgudxoRtbk73/19/9795UbhobtnkpRjzrjKbz72/28/2013 Intolerance UuzdztejCejjGrs24/02/2012Mometasone Furo-Formoterol FumOther,GjovjdEsp77/07/2015 Falls XyfxtluojmGkzyhLtw64/28/2013 intolerance BnbhknhduixzvcGtpfInj28/19/2024 across nose/ cheeks QxphiaxxebKevfuEvhdrx43/06/2024 insomnia Valproic OypcQmnudGevk13/20/2004 Daughter states she almost , had an out of body experience Medications MedicationSigDispense QuantityRefillsLast FilledStart DateEnd DateStatus albuterol (PROVENTIL HFA) INHALATION HFA inhaler (VENTOLIN,PROAIR,PROVENTIL) 90mcg INHALE 2 PUFFS EVERY 6 HOURS NEEDED FOR WHEEZINGActive Ascorbic Acid 250 MG CHEW Take by mouth every 12 hours.Active B Complex Vitamins CAPS Take 1 Capsule by mouth daily.Active benzonatate (TESSALON) 200 MG capsule TAKE 1 CAPSULE BY MOUTH THREE TIMES DAILY FOR 10 DAYS NEEDED FOR COUGH 07/11/2023ctive cetirizine (ZyrTEC) 10 MG tablet Take 10 mg by mouth daily.Active Cholecalciferol (Vitamin D-3) 25 MCG (1000 UT) CAPS Cholecalciferol (Vitamin D3) Active PO Daily May 14, 2023 1:00am FreeTextSig: Orally Daily; Note: Source Status: Taking; Provider: Michael Yip ( )05/14/2023ctive Coenzyme Q10 (Co Q 10) 100 MG CAPS Take by mouth every 24 hours.Active Cyanocobalamin 1000 MCG CAPS Cyanocobalamin (Vitamin B-12) Active 1000 MCG PO Daily June 28, 2023 12:00am 06/28/2023ctive DOCOSAHEXAENOIC ACID ORAL Take 1 Capsule by mouth daily.12/22/2021ctive ferrous sulfate 325 (65 Fe) MG tablet Take 325 mg by mouth daily.Active gabapentin (NEURONTIN) 300 MG capsule 07/09/2023ctive guaifenesin (MUCINEX) 600 MG SR tablet Take 1,200 mg by mouth.07/11/2023ctive LORazepam (ATIVAN) 0.5 MG tablet Take 0.5 mg by mouth 3 times daily as needed.07/19/2023ctive losartan (COZAAR) 50 MG tablet Take 50 mg by mouth.07/11/2023ctive Magnesium Oxide 400 MG CAPS Take by mouth daily.Active metoprolol (LOPRESSOR) 25 MG tablet Take 12.5 mg by mouth.05/07/2023ctive montelukast (SINGULAIR) 10 MG tablet Take 10 mg by mouth daily.Active nitroglycerin (NITROSTAT) 0.4 MG sublingual tablet Nitroglycerin Active 0.4 MG SUBLINGUAL Q5M April 30, 2023 1:00am07/25/2022 Active calcium, elemental, (OSCAL,) 500 MG tablet Take by mouth every 24 hours.Active pravastatin (PRAVACHOL) 40 MG tablet Take 40 mg by mouth daily.Active spironolactone (ALDACTONE) 25 MG tablet Take 1 Tablet by mouth.06/19/2023ctive triamterene-hydrochlorothiazide (MAXZIDE) 37.5-25 MG tablet Take 1 Tablet by mouth daily.Active vitamin E 400 UNIT capsule Take by mouth every 24 hours.Active melatonin 3 MG TABS tablet Take 1 Tablet by mouth at bedtime. 90 Tablet 08/04/2023ctive senna (SENOKOT) 8.6 MG tablet Take 1 Tablet by mouth daily as needed. 30 Tablet 08/04/2023ctive levETIRAcetam (KEPPRA) 100 MG/ML oral solution Take 5 mL by mouth 2 times daily. 240 mL ctive amantadine (SYMMETREL) 50 MG/5ML SOLN oral syrup 10 mL by NG Tube route 2 times daily. 473 mL 08/24/2023ctive chlorhexidine (PERIDEX) 0.12 % oral solution Take 15 mL by mouth 2 times daily. 118 mL ctive multivitamins with minerals (CEROVITE) LIQD oral liquid 15 mL by NG Tube route daily. 236 mL 08/25/2023ctive polyethylene glycol (MIRALAX) packet Dissolve 1 Packet (17 g total) in 8 ounces of liquid and drink daily. 12 Each ctive doxazosin (CARDURA) 4 MG tablet Take 1 Tablet by mouth daily. 30 Tablet 08/25/2023ctive folic acid 1 MG tablet Take 1 Tablet by mouth daily for 2 doses. 2 Tablet 08/25/2023ctive lisinopril (ZESTRIL) 5 MG tablet Take 1 Tablet by mouth daily. 30 Tablet 08/25/2023ctive Active Problems ProblemNoted DateDiagnosed DateAcute post-operative pain08/24/2023cute blood loss ruacog8008/24/20232608Nimthczqojssbq98/14/2024Embolic cerebral infarction 08/24/2023Urinary imxvkzena29/14/4394Fojlhvpuqarz65/14/2024cute radial nerve palsy08/23/2023cute renal ndoispadpbeuf63/13/2695Pkbpihtywasyjd80/13/2024 Bilateral calf pain08/23/2023lurring of visual image08/23/2023hronic pain due to wjlnnr8108/23/2023ough, fnzwmmbxlic17/13/2024Edema of lower extremity 08/23/2023ltered mental status, unspecified altered mental status type 08/13/2023SDH (subdural hematoma)08/12/2023Fall08/03/2023Midline shift of brain 08/03/2023cute pain due to akriny2508/03/2023Subdural dodczfyi98/19/2024ontusion of knee07/29/2023cute upper respiratory dquuxxllw37/29/2024iastolic /29/2024djustment disorder with depressed mood06/16/2023nxiety 06/16/20237260Kljzhu25/04/2024nticoagulation management nyprfennd90/25/2024erebral amyloid tbinsmvcwn50/24/2024VT (deep venous thrombosis)05/03/2023 Overview (08/23/2023): Last Assessment & Plan: Hx of DVT on eliquis (06/2022). Previously on low dose eliquis 2.5 mg BID. Plan: Hold AC Duplex US BLE Last Assessment & Plan: Hx of DVT on eliquis (06/2022). Previously on low dose eliquis 2.5 mg BID. 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 ijxbvqr6605/19/2022 Calcaneal spur of left foot3Contusion of right foot05/19/2022cute renal ojqiqud7812/15/2021isorder of liver2Chest pain12/11/2021 Gastroesophageal reflux disease without ymvoupcobqh46/22/2022AKI (acute kidney injury)12/16/2018At risk for bucztqtrsnin99/06/2019Benign essential hypertension 12/15/2018 Overview (08/23/2023): Last Assessment [...] losartan, metoprolol tartrate - hold HCTZ Chronic ogvubr7912/15/2018Closed fracture of shaft of frpyruu8808/07/2017Ankle and foot joint hzyqyntmjme52/22/2012Loose body in ankle and foot joint01/01/2012 Ankle joint uiluftlrweu82/22/2012Difficulty awrbdeg3001/01/2012Fitting and adjustment of orthopedic bqxigt9509/20/2011Complete rupture of rotator cuff 05/01/2003 Resolved Problems ProblemNoted DateDiagnosed DateResolved OahmPpypkwjkgzocpmrd11/24/ Qajjbrsxi30/24/ Immunizations ImmunizationAdministration DatesNext DueInfluenza, injectable, quadrivalent, preservative (QHO=715)12/20/2017,12/25/2016,12/20/2015Influenza, injectable, quadrivalent, preservative free (KKI=137)12/15/2018Pneumococcal polysaccharide 23 Valent (PPSV23) (CVX=33)04/04/2019Tdap (EWV=416)02/23/2021,06/18/2017, 11/05/2012 Social History Tobacco UseTypesPacks/DayYears UsedDateSmoking Tobacco: FormerCigarettes Smokeless Tobacco: Never Tobacco Cessation:Counseling Given: Not Answered Comments:2014 CommentsNoSex and Gender InformationValueDate RecordedSex Assigned at BirthNot on fileLegal NguFreeon33/06/2022 11:02 AM EDTGender IdentityNot on file Sexual OrientationNot on file Last Filed Vital Signs Vital SignReadingTime TakenCommentsBlood Btcdiuzi357/7005 11:53 AM EDT Dbcry1931/20/2025 10:47 AM VPQYhnlvqatnoz28.8 ??C (98.3 ??F)10/08/2023 5:43 PM EDTRespiratory Nhpm2463 2:00 AM EDTOxygen Kwocoeqgrc97%10/09/2023 2:00 AM EDTInhaled Oxygen Concentration--Mzxngl85 kg (187 lb 6.3 oz)10/08/2023 3:34 PM OPNHvtmcp673.2 cm (5' 7 )07/29/2023 3:50 PM EDTBody Mass Index29.35007/29/2023 3:50 PM EDT Plan of Treatment Health MaintenanceDue DateLast DoneCommentsHepatitis A (HAV) Vaccine (optional start 19+ years)07/06/1958Shingles (RZV) Vaccine (1 of 2)07/06/1989Hepatitis B (HBV) Vaccine (optional start 60+ years)1999Annual Wellness Visit (G0438) 06/10/2004Bone Ebtqnxftrvzo23/27/2005RSV vaccine (adult) (1 - 1-dose 75+ series) 07/06/2014Pneumococcal Vaccine(s) (50+ yrs) (2 of 2 - PCV)/ Basic Metabolic Panel/, 08/23/2023, 08/22/2023, Additional history existsCOVID-19 Vaccine (3 - 2024- season)/, 04/03/2020Influenza Vaccine (#1)/08/2018, 12/20/2017, 12/25/2016, Additional history existsTetanus (Td or Tdap) Ybfynkh17/, 06/18/2017, 11/05/2012Tdap KolymytGzjfxemdq66/15/2021, 06/18/2017, 11/05/2012Pap SmearDiscontinued Medical Devices ImplantedTypeAreaManufacturerDevice IdentifierShelf Expiration DateModel / Serial / LotCoil Embl 3-2mm Trnd Mciol Ea1 Mwce-18s-3/2-Kepbwzh-79 - [id number] Implanted:Qty: 1 on 08/15/2023 by Royce Casarez MD at INPATIENT UNITS Left: GwcwwJzde78/01/[id number]-99M-0/4-JFTBFMD-20 / / [id number] Embl 3-2mm Trnd Mciol Ea1 Mwce-18s-3/3-Mwakbyb-12 - [id number] Implanted:Qty: 1 on 08/15/2023 by Royce Casarez MD at INPATIENT UNITS Left: QsadeTeva83/01/0281XGKO-08M-7/0-JUSNBPS-59 / / [id number] Embl 3-2mm Trnd Mciol Ea1 Mwce-18s-3/2-Vchtrip-43 - [id number] Implanted:Qty: 1 on 08/15/2023 by Royce Casarez MD at INPATIENT UNITS Left: HysgyZmlp21/01/2663GZZM-17F-3/7-VJGXFEW-09 / [id number] Procedures Procedure NamePriorityDate/TimeAssociated DiagnosisCommentsBASIC METABOLIC PANEL Ttpbxdx6108/23/2023 2:59 AM EDT from Last 3 Months or Most Recently Relevant to Health Maintenance Results * (ABNORMAL) BASIC METABOLIC PANEL (08/23/2023 2:59 AM EDT)ComponentValueRef RangeTest MethodAnalysis TimePerformed AtPathologist PgmdosyorEqrwyan55717 - 109 mg/dL08/23/2023 3:40 AM [facility] EGDVUHMSFJVpuekc734519 - 145 mmol/L08/23/2023 3:40 AM [facility] PATH[facility] LABORATORYPotassium4.13.5 - 5.0 mmol/L08/23/2023 3:40 AM [facility] LABORATORYCarbon Pypmqwb5500 - 31 mmol/L08/23/2023 3:40 AM [facility] CMXQRTZHMYTltaonng31629 - 107 mmol/L 08/23/2023 3:40 AM [facility] LABORATORYBlood Urea Iayotgbi492 - 25 mg/dL08/23/2023 3:40 AM [facility] LABORATORYCreatinine0.59(L)0.60 - 1.20 mg/dL08/23/2023 3:40 AM [facility] PATHOLOGY LABORATORYCalcium9.08.6 - 10.3 mg/dL08/23/2023 3:40 AM [facility] PATHOLOGY LABORATORYAnion Ycy7537 - 20 08/23/2023 3:40 AM [facility] PATHOLOGY LABORATORYEstimated GFR (CKD-EPI)89>=60 mL/min/1.54jaa3208/23/2023 3:40 AM [facility] PATHOLOGY LABORATORYComment: 2020 CKD EPI Equation using Creatinine without Race Comment: ??Estimated glomerular filtration rate (eGFR) is calculated without a race coefficient. Values should be interpreted in the context of the patient's full clinical presentation. Reference: 1. Nestor C, Isabella M, Kaz FUENTES, et al.. A Unifying Approach for GFR Estimation: Recommendations of the NKF-ASN Task Force on Reassessing the Inclusion of Race in Diagnosing Kidney Disease. AmericanJournal of Kidney Diseases 2021;79(2):268-88.e1. 2. N Engl J Med 1 Vol. 385 Issue 19 Pages 5296-9310 Specimen (Source)Anatomical Location / LateralityCollection Method / Volume Collection TimeReceived TimeBloodBLOOD SPECIMEN / UnknownVenipuncture / Unknown 08/23/2023 2:59 AM EDT08/23/2023 3:13 AM EDT Narrative Authorizing ProviderResult TypeResult StatusFamekhi Espinoza'Th MD98 GENERAL LAB Final ResultPerforming OrganizationAddressCity/State/ZIP CodePhone Number [facility] [address] [place] [address] from Last 3 Months or Most Recently Relevant to Health Maintenance Insurance * Guarantor: Demetrius Marcelino TypeRelation to PatientDate of BirthPhoneBilling AddressPersonal/BoleuqZcgh04/27/1941 [facility] [address] [place] [phone] * Guarantor: Demetrius Marcelino TypeRelation to PatientDate of BirthPhoneBilling AddressPersonal/TgghaaRkme22 [facility] [address] [place], [place] [phone] * Guarantor: Demetrius Marcelino TypeRelation to PatientDate of BirthPhoneBilling AddressPersonal/UderzrPmps05 [facility] [address] [place] [phone] * Guarantor: Demetrius Marcelino TypeRelation to PatientDate of BirthPhoneBilling AddressPersonal/JouvrjEltd28/27/1941 [facility] [address] [place] [phone] MemberSubscriberPlan / Payer (Effective 2020-Present)Name:AbdoulayeSuri tameze Relation to Subscriber:SelfName:AbdoulayeSuri tameze Payer ID:Not on file Group ID:Not on file Type:Indemnity Address: [place] [id number] * Guarantor: Demetrius Marcelino TypeRelation to PatientDate of BirthPhoneBilling AddressPromedica Life TshiciFiow56/27/1941 [facility] [address] [place] [phone] Advance Directives * Full Code (Latest Code Status on File) Date ActivatedDate InactivatedComments08/13/2023 2:10 AM08/24/2023 4:45 PMQuestion AnswerCommentsDocumentation of decision process for this code status:* Discussed with patient or surrogate.?? This is the code status chosen by the patient/surrogate. * Full Code Date ActivatedDate InactivatedComments07/29/2023 4:47 PM08/04/2023 12:54 PM QuestionAnswerCommentsDocumentation of decision process for this code status:* Patient and surrogate unable or unavailable to discuss.?? There is no previous documentation of code status.?? Defaulting to Full Code Care Teams Team MemberRelationshipSpecialtyStart DateEnd Date Kymberly Cabrera APRN-[employer] OPERATOR [address] [place] [address] APNUrology09/15/23 Sly Li MD [address] [place] [address] PhysicianNeurosurgery11/17/23 Ronald Alvarado MD [address] [place], [place] [phone] PhysicianNeurology08/16/24
--- OUTSIDE RECORDS SUMMARY | 2025-01-05 09:24 | XMS_ITS | Clinical Summary ---
Author Organization [facility] tem Address [id number] [place] [address] Care Team Providers Care Environmental Services Coordinator Name Role Phone Unavailable Primary Care Provider Unavailabl e Social History Tobacco UseTypesPacks/DayYears UsedDateSmoking Tobacco: Never AssessedChildcare AnswerDate NnpujzyrFmchvcaecXmfymoc08/13/2019EmploymentAnswerDate Recorded LwuurcmoooIuhiuif84/13/2019Purpose - LifeAnswerDate RecordedPurpose and direction in bqzsCsynbvg08/11/2021CommentsUnknownSex and Gender InformationValueDate RecordedSex Assigned at BirthNot on fileLegal SexFemale 08/20/2017 2:04 PM EDTGender IdentityNot on fileSexual OrientationNot on file Plan of Treatment Health MaintenanceDue DateLast DoneCommentsDepression Kioxjwcrz33/27/1952Tobacco Ilfgbbjfy54/27/1952Zoster (Shingles) Vaccine (1 of 2)07/06/1989Fall Risk Wsmualshl87/27/2005COVID-19 Vaccine ( season)502/, 04/03/2020Influenza Tmnrhho47/01/722649/03/2020, 02/04/2020, 12/15/2018, Additional history existsDTaP,Tdap and Td Vaccines (4 - Td or Tdap)02/23/2031 02/23/2021, 06/18/2017, 12/05/2013 Medical Devices Not on file Insurance
--- OUTSIDE RECORDS SUMMARY | 2025-01-05 09:24 | XMS_ITS | Clinical Summary ---
Author Organization [facility] Address [address] [place] [address] Care Team Providers Care Director Semiconductor Name Role Phone Santosh Childress DO Unavailable [phone] Amado Mckenzie MD Primary Care Provider [phone] Allergies Active AllergyReactionsCriticalityNoted DateCommentsAmlodipineUnknownLow 11/06/2012 intolterance IcmdfhdkorsewMunlwfx97/20/2004 Tegretal caused itching HydantoinsAnaphylaxis,FxjwtuoUysy84/20/2004 throat swells ,hives HydrochlorothiazideUnknown,CdtaeVckd39/19/2024 Other Reaction(s): Hyponatremia ZftqamdlrQcmhsbdJsv66/28/2013 Other Reaction(s): Other (See Comments) Intolerance Mometasone Furo-Formoterol FumGI blxwqpmxxgo16/07/2015 Falls Mometasone YiifwrmIqrvg41/12/9547RrpdcszzmpLroysktQvm26/28/2013 intolerance AfhpnjwgquyzteMrnaLxk22/19/2024 Other Reaction(s): rash across nose/ cheeks across nose/ cheeks NwpltukzlhVspnwYtbq30/06/2024 insomnia Valproic CilmSqsdrnfJgo31/20/2004 Fine motor tremors Other reaction(s): AOF tremors Wound Dressing GtiflnwiKhurWka45/02/2012 Medications MedicationSigDispense QuantityRefillsLast FilledStart DateEnd DateStatus magnesium oxide (Mag-Ox) 400 MG tablet Take 400 mg by mouth in the morning.Active metoprolol succinate XL (Toprol-XL) 25 MG 24 hr tablet Take 12.5 mg by mouth in the morning.12/02/2021ctive nitroglycerin (Nitrostat) 0.[address] 0.4 mg under the tongue every 5 (five) minutes if needed.07/25/2022ctive baclofen (Lioresal) 10 MG tablet Take 5 mg by mouth in the evening. Take with meals.Active famotidine (Pepcid) 40 MG tablet Take by mouth.Active ferrous sulfate 325 (65 Fe) MG tablet Take 325 mg by mouth in the morning. Take with meals.Active multivitamin (Theragran) tablet Take 1 tablet by mouth in the morning.Active lisinopril 5 MG tablet Take 5 mg by mouth in the morning and 5 mg before bedtime.02/22/2023ctive gabapentin (Neurontin) 400 MG capsule Take 300 mg by mouth in the morning and 300 mg in the evening and 300 mg before bedtime.01/25/2023ctive albuterol HFA 90 mcg/act inhaler Inhale 2 puffs every 4 (four) hours if needed for wheezingActive co-enzyme Q-10 30 MG capsule Take 30 mg by mouth in the morning.Active levETIRAcetam (Keppra) 500 MG tablet Take 500 mg by mouth in the morning and 500 mg in the evening.05/07/2023ctive losartan (Cozaar) 100 MG tablet TAKE 1 TABLET BY MOUTH EVERY MORNING for mncwozfzbdgy81/04/2024ctive pravastatin (Pravachol) 40 MG tablet Take 40 mg by mouth at liqnwrv9405/07/2023ctive triamterene-hydrochlorothiazide (Maxzide-25) 37.5-25 MG tablet Take 1 tablet by mouth Daily05/08/2023ctive aspirin 81 MG EC tablet Take 81 mg by mouth DailyActive LORazepam (Ativan) 0.5 MG tablet Indications:Anxiety and depressionTake 1 tablet (0.5 mg) by mouth in the morning and 1 tablet (0.5 mg) in the evening and 1 tablet (0.5 mg) before bedtime. Do all this for 15 days. 45 tablet 09/25/2023ctive amoxicillin-clavulanate (Augmentin) 875-125 MG tablet Take 1 tablet by mouth every 12 (twelve) hoursActive cetirizine (ZyrTEC) 10 MG tablet Take by mouth Daily02/12/2024ctive citalopram (CeleXA) 10 MG tablet Take 10 mg by mouth DailyActive gabapentin (Neurontin) 300 MG capsule Take 300 mg by mouth in the morning and 300 mg in the evening and 300 mg before bedtime.02/12/2024ctive lisinopril 30 MG tablet Take 30 mg by mouth Daily02/12/2024ctive LORazepam (Ativan) 0.5 MG tablet Take 0.5 mg by mouth07/19/2023ctive magnesium oxide (Mag-Ox) 400 (240 Mg) MG tablet Take 400 mg by mouth Daily09/24/2023ctive metoprolol tartrate (Lopressor) 50 MG tablet Take 50 mg by mouth in the morning and 50 mg before bedtime.09/24/2023ctive cyclobenzaprine (Flexeril) 10 MG tablet Take 10 mg by mouth 3 (three) times a day as needed for muscle spasmsActive ALPRAZolam (Xanax) 0.25 MG tablet Take 0.25 mg by mouth as needed at bedtime for anxietyActive atorvastatin (Lipitor) 10 MG tablet Take 10 mg by mouth DailyActive Active Problems ProblemNoted DateDiagnosed DateSubarachnoid evlgohawnt72/13/2024hronic venous phbkuehjxhsm92/13/2024Left leg pain02/22/20241737Vdltrfqyjht19/13/2024Subdural hematoma caused by tdqodzvojq74/13/2024Surgical wound, non dexakhg9702/22/2024 Numbness and tingling of both legs02/22/2024Lymphedema of both lower extremities 02/22/20246107Rkgqpsoatquf58/13/2024cute blood loss vuajnc1908/24/2023olypharmacy 08/24/2023Embolic cerebral wnnbrekwzz99/14/6977Vpnbrsivoikhup61/13/2024Subdural zgpxxlaa01/19/2024Nonspecific abnormal electroencephalogram (EEG)06/17/2023 History of DVT (deep vein thrombosis)05/06/20234620Izpkgadurn70/25/2024erebral amyloid ibwabtgeev31/24/2024oronary artery disease involving asa'carsarmiut coronary artery of asa'carsarmiut heart without angina mmyqskvm60/22/2024 Overview (05/29/2023): Last Assessment & Plan: Assessment: hx of CAD c/b NSTEMI 11/2021 with LETICIA to RCA. Follows with cardiology, per outpatient note patient was recommended to be on indefinite clopidogrel. Last [facility] 11/2021 noting significant calcification in LCx and LAD. - BB: metoprolol tartrate 12.5 BID - Statin: pravastatin (previous intolerance to high intensity statin) - AP: clopidogrel - lipid panel LDL-c 59 - Hgb A1c 4.9% Plan: - holding clopidogrel - continue metoprolol 12.5 mg BID - pravastatin 40 mg daily, goal LDL-c ideally < 55 DVT (deep venous thrombosis)05/03/2023 Overview (05/29/2023): Last Assessment & Plan: Hx of DVT on eliquis (06/2022). Previously on low dose eliquis 2.5 mg BID. Plan: Hold AC Duplex US BLE HORTENSIA (iron deficiency anemia)05/03/2023 Overview (05/29/2023): Last Assessment & Plan: Assessment: on iron tablets as outpatient. Hgb on arrival 12.8. no iron studies. Unknown last C-scope. Plan - repeat iron studies - CBC daily Mixed uncqxdkqymcmfc01/22/2024 Overview (05/29/2023): Last Assessment & Plan: Plan - pravastatin Primary sselcveskmvh80/22/2024 Overview (05/29/2023): Last Assessment & Plan: Assessment: home antiHTN losartan and HCTZ. On losartan 100 mg however her home dose is 25 mg daily Plan: - BP goal as above - losartan, metoprolol tartrate - hold HCTZ SAH (subarachnoid hemorrhage)05/03/2023 Overview (05/29/2023): Last Assessment & Plan: Began 05/03 in the morning, no previous hx of bleeds, no trauma, no family hx of bleeds or aneurysms. Plan: MRI/MRA MRI cervical spine SBP <160 - home losartan, metoprolol tartrate and PRN, holding home HCTZ NC Q4H Hold AC/AP NSGY recs Sciatica of right side05/03/2023 Overview (05/29/2023): Last Assessment & Plan: Assessment: previous hx of R sided sciatica with R LE weakness. Appreciated on admission physical exam. 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 Per patient last seizure was years ago . Does not follow with neurology as outpatient. Review of med list shows that she is not on any AED as outpatient (has allergy to multiple AED). Plan - stop Keppra 750 BID Uncomplicated zypfob2505/03/2023 Overview (05/29/2023): Last Assessment & Plan: Assessment: hx of asthma, no PFT in EMR. No rescue inhaler per recent dispense report. Hx of montelukast. Not in exacerbation on arrival Plan - montelukast Non-pressure chronic ulcer of left heel and midfoot limited to breakdown of skin 03/20/2023Onychomycosis due to ygcjxvsuwxar17/09/2024ain in limb03/20/2023 Peripheral venous orrprlinwegxs37/09/2024Verruca zijrfzsaa54/09/2024cquired dysmorphic sgsabld6105/19/2022Tendonitis, Achilles, left05/19/2022astroesophageal reflux disease without inkzqoqjnev40/22/2022Open wound of left knee12/15/2018 Heel pain, roskwvo9910/15/2014Pain in left foot10/15/2014Heel spur10/15/2014nkle joint rowkcpujycs97/22/2012Derangement of ankle or foot01/01/2012nkle and foot joint yljpxbkfvrm15/22/2012 Encounters DateTypeDepartmentCare HfcmAlunmnmgtcf75/12/2025 1:15 PM EDTProcedure Visit [facility] [address] [place] [address] Santosh Jhaveri DPM Idiopathic progressive polyneuropathy (Primary Dx); Onychomycosis; Corns and vqahycchslv73/12/2025amboo flowsheet [facility] [address] [place] [address] Santosh Jhaveri DPM 11/21/2024Travelfrom Last 3 Months Immunizations ImmunizationAdministration DatesNext DuePneumococcal Polysaccharide PPSV23 04/04/2019Tdap104/26/2020,12/05/2013Tetanus toxoid, ztpwfuqk21/27/1999 Social History Tobacco UseTypesPacks/DayYears UsedDateSmoking Tobacco: FormerCigarettesQuit: 1983Smokeless Tobacco: Never Tobacco Cessation:Counseling Given: Not Answered Alcohol UseStandard Drinks/WeekCommentsNever0 (1 standard drink = 0.6 oz pure alcohol)CommentsUnknownSex and Gender InformationValueDate RecordedSex Assigned at BirthNot on fileLegal VfoLnyxek88/15/2023 6:40 PM EDTGender Identity Not on fileSexual OrientationNot on file Last Filed Vital Signs Vital SignReadingTime TakenCommentsBlood Tjmtpbjl536/9109 1:20 PM EDT Hcjaq363711/21/2024 1:20 PM EDTTemperature--Respiratory Cdrj184505/22/2024 1:07 PM EDTOxygen Ovgzluusgw43%04/21/2024 1:14 PM ESTInhaled Oxygen Concentration-- Chnofe18.2 kg (168 lb)05/22/2024 1:07 PM ASKZhcetf432.6 cm (5' 4 )05/22/2024 1:07 PM EDTBody Mass Index28.8405/22/2024 1:07 PM EDT Plan of Treatment DateTypeDepartmentCare Team (Latest Contact Info)Tnqegwrsqxp84/17/2025 1:30 PM ESTProcedure Visit [facility] [address] [place] [address] Santosh Jhaveri, DPM [address] [place] [address] Health MaintenanceDue DateLast DoneCommentsPneumococcal Vaccine: 65+ Years (2 of 2 - PCV)/Influenza Vaccine (#1)512/03/2020, 02/04/2020, 12/15/2018, Additional history exists Insurance [address] [place] [phone] Care Teams Team MemberRelationshipSpecialtyStart DateEnd Date Amado Mckenzie MD [address] [place] [phone] [facility] - [facility]24 Santosh Childress DO Referring PhysicianNeurolog04/21/24
--- OUTSIDE RECORDS SUMMARY | 2025-01-05 09:24 | XMS_ITS | Continuity of Care Document ---
Author Organization [facility], Kris quijano. Address [address] [place] [phone] Phone [phone] Care Team Providers Care Foil Stamp Operator Name Role Phone Amado Mckenzie Care Team Information Packing Machine Can Feeder [phone] Assessments Date Code Description Provider 07/10/2023 E87.1 [...]
--- OUTSIDE RECORDS SUMMARY | 2025-01-05 09:24 | XMS_ITS | Clinical Summary ---
Author Organization [facility] Address [address] [facility], [address] [place] [address] Care Team Providers Care In Flight Refueling System Repairer Name Role Phone Amado Mckenzie Primary Care Provider [phone] Allergies Active AllergyReactionsCriticalityNoted DateCommentsDivalproex SodiumOther (See Comments)12/14/2018 Fine motor tremors Phenytoin Sodium EtjwejmiGtqkkbllvdrBzlg51/05/2019LabetalolOther (See Comments) 12/14/2018 Intolerance Gmcpgljipv51/05/2019 intolterance Kggagptugc91/05/2019 intolerance EdfbkfwjcknnkVyuausx70/05/2019 Medications MedicationSigDispense QuantityRefillsLast FilledStart DateEnd DateStatus baclofen (LIORESAL) 10 MG tablet Take 10 mg by mouth daily I/2 tab in the eveningActive zafirlukast (ACCOLATE) 20 MG tablet Take 20 mg by mouth 2 times dailyActive gabapentin (NEURONTIN) 300 MG capsule Take 300 mg by mouth 3 times daily.Active magnesium oxide (MAG-OX) 400 MG tablet Take 400 mg by mouth daily In the eveningActive cetirizine (ZYRTEC) 10 MG tablet Take 10 mg by mouth dailyActive Active Problems ProblemNoted DateDiagnosed DateWound infection: Left knee status post hematoma ggyverhdvj43/09/2019Anemia, normocytic xojpbrylppvq81/07/2019Hypocalcemia 12/16/20185613Etpmwerdxvpgkzv95/07/2019AKI (acute kidney injury)12/16/2018Essential faerpdkfdswz60/06/2019Normocytic dtxxcu0212/15/2018At risk for malnutrition 12/15/2018Open wound of left knee12/15/2018Traumatic hematoma of knee, left, qhzfeam37/06/2019Left leg cellulitis: Secondary to wound infection following hematoma uzcxuvzjpu02/05/2019 Resolved Problems ProblemNoted DateDiagnosed DateResolved KtcfLysd59 Immunizations ImmunizationAdministration DatesNext DueInfluenza, FLUARIX, FLULAVAL, FLUZONE (age 6 mo+) and AFLURIA, (age 3 y+), Quadv PF, 0.5mL12/15/2018 Social History Tobacco UseTypesPacks/DayYears UsedDateSmoking Tobacco: FormerCigarettesQuit: 1976Smokeless Tobacco: NeverCommentsUnknownSex and Gender Information ValueDate RecordedSex Assigned at BirthNot on fileLegal UceGwgjwt67/12/2013 11:25 PM ESTGender IdentityNot on fileSexual OrientationNot on file Last Filed Vital Signs Vital SignReadingTime TakenCommentsBlood Kijlebtu512/6412/18/2018 8:21 AM EDT Gjfgd255912/18/2018 8:21 AM AZLEkfxxszystl63.6 ??C (97.9 ??F)12/18/2018 8:21 AM EDTRespiratory Zjzb5834 8:21 AM EDTOxygen Kmgtbtpmku83%12/18/2018 8:21 AM EDTInhaled Oxygen Concentration--Aaffhg07.3 kg (196 lb 12.8 oz)12/18/2018 6:00 AM IMYRlxkby113.6 cm (5' 6 )12/14/2018 11:15 PM EDTBody Mass Index31.76 12/14/2018 11:15 PM EDT Plan of Treatment Not on file Insurance Advance Directives * Full Code (Latest Code Status on File) Date ActivatedDate DcgzktgrcdrUumezgkz20/5/2019 11:15 12/18/2018 8:39 PM Care Teams Team MemberRelationshipSpecialtyStart DateEnd Date Amado Mckenzie DO PCP - GeneralFamily Wyowpbue28/6/19
--- OUTSIDE RECORDS SUMMARY | 2025-01-05 09:24 | XMS_ITS | Clinical Summary ---
Author Organization [facility] Address [address] [place] [address] Phone Care Team Providers Care Instrumentation Fitter Name Role Phone Amado Mckenzie DO Primary Care Provider [phone] Allergies Active AllergyReactionsCriticalityNoted DateCommentsCarbamazepineUnknown 12/29/20220181CyvbuosoxYsiwbzx41/20/4372SwjzhixahhNtgfofw58/20/2023PhenytoinUnknown 12/29/2022Valproic DwplLgzvcio42/20/2023 Medications MedicationSigDispense QuantityRefillsLast FilledStart DateEnd DateStatus metoprolol tartrate (Lopressor) 25 mg tablet Take 0.5 tablets (12.5 mg) by mouth 2 times a day.Active omega 2-rbc-uot-fish oil (Fish OiL) 300-1,000 mg capsule,delayed release(DR/EC) Take 1 capsule by mouth once daily.12/22/2021ctive magnesium oxide (Mag-Ox) 400 mg tablet Take 1 tablet (400 mg) by mouth once daily.Active lisinopril 2.5 mg tablet Take 1 tablet (2.5 mg) by mouth 2 times a day.06/12/2022ctive gabapentin (Neurontin) 300 mg capsule Take 1 capsule (300 mg) by mouth 3 times a day.Active famotidine (Pepcid) 40 mg tablet Take 1 tablet (40 mg) by mouth once daily.Active baclofen (Lioresal) 5 mg tablet Take 1 tablet (5 mg) by mouth once daily.Active therapeutic eptnkrkyaupn-ecvf-geecqhpe (Theragran-M) tablet Take 1 tablet by mouth once daily.Active Active Problems ProblemNoted DateDiagnosed DateBenign essential ncqddgaidjix98/20/2023ilateral carotid artery udpxhlty53/20/0942Pkiuzrtchadhxw31/20/2023ost PTCA1 Single vessel coronary awhddla3212/29/2022 Social History Tobacco UseTypesPacks/DayYears UsedDateSmoking Tobacco: Never Assessed CommentsUnknownSex and Gender InformationValueDate RecordedSex Assigned at Not on fileLegal HcmUaeydk00/25/2022 11:47 AM ESTGender IdentityNot on file Sexual OrientationNot on file Last Filed Vital Signs Vital SignReadingTime TakenCommentsBlood Efsvfwra564/8806 11:59 AM EDT Zxjri5257/14/2023 11:59 AM EDTTemperature--Respiratory Rate--Oxygen Saturation-- Inhaled Oxygen Concentration--Kjnvqa11.3 kg (188 lb)08/23/2022 11:59 AM EDT Fuqhcq915.2 cm (5' 7 )08/23/2022 11:59 AM EDTBody Mass Index29.4406 11:59 AM EDT Plan of Treatment Health MaintenanceDue DateLast DoneCommentsCreatinine Level1939Lipid Panel 1939Potassium Level1939DTaP/Tdap/Td Vaccines (1 - Tdap)07/06/1961 Zoster Vaccines (1 of 2)07/06/1989Bone Density Scan07/06/2004RSV High Risk: (Elderly (60+) or Population) (1 - 1-dose 75+ series)07/06/2014Medicare Annual Wellness Visit (AWV)/01/2018, 05/30/2016Pneumococcal Vaccine (2 of 2 - PCV)/4575Cwgcjxktlrhpfb28/15/202309/Influenza Vaccine (#1)5COVID-19 Vaccine (1 - 2024- season)2024HIB VaccinesAged OutNo longer eligible based on patient's age to complete this topic HPV VaccinesAged OutNo longer eligible based on patient's age to complete this topicHepatitis A VaccinesAged OutNo longer eligible based on patient's age to complete this topicHepatitis B VaccinesAged OutNo longer eligible based on patient's age to complete this topicIPV VaccinesAged OutNo longer eligible based on patient's age to complete this topicMeningococcal VaccineAged OutNo longer eligible based on patient's age to complete this topicRotavirus VaccinesAged Out No longer eligible based on patient's age to complete this topic Procedures Procedure NamePriorityDate/TimeAssociated DiagnosisCommentsECHOCARDIOGRAM 11/24/2021 from Last 3 Months or Most Recently Relevant to Health Maintenance Results * ECHOCARDIOGRAM (11/24/2021) Narrative 11/24/2021 Ordered by an unspecified provider. Authorizing ProviderResult TypeResult StatusOnbase ConversionCV ECHO PROCEDURES Final Result from Last 3 Months or Most Recently Relevant to Health Maintenance Insurance [address] [place] [id number] Care Teams Team MemberRelationshipSpecialtyStart DateEnd Date Amdao Mckenzie DO [address] [address] PCP - General03/12/99
[2025-01-05 09:48] VITALS: BP 195/91; PULSE 56; TEMP 36.2; O2SAT 98
[2025-01-05 10:25] VITALS: BP 172/80; BP 190/83; PULSE 60; PULSE 63; O2SAT 91; O2SAT 92
[2025-01-05] MEDS: 0.9 % SODIUM CHLORIDE 10 ML SYRINGE - SALINE FLUSH INJ (10:27)
[2025-01-05] MEDS: IOHEXOL 240 MG/ML - 10 ML VIAL INJ (10:27)
[2025-01-05] MEDS: BUPIVACAINE HCL 0.25% PF 25 MG/10 ML VIAL INJ (10:27)
[2025-01-05] MEDS: METHYLPREDNISOLONE ACETATE 80 MG/ML VIAL INJ (10:28)
[2025-01-05] MEDS: LIDOCAINE HCL 2% 400 MG/20 ML MDV 3 ML INJ (10:28)
--- NOTE | 2025-01-05 10:32 | W.PM.PROCNOT ---
Date of procedure: 01/05/25 Pre-op diagnosis: Pain due to lumbar stenosis with neurogenic claudication Post-op diagnosis: same as pre-op Procedure: Procedure: Bilateral L5-S1 transforaminal epidural steroid injection Medications: Bupivacaine 0.25% 2cc, lidocaine 2% 1cc, depomedrol 80mg The patient was seen and examined in the preoperative holding area.? Informed consent was obtained and placed on the chart.? Patient was brought to the medical procedure unit and placed in the prone position where a timeout was completed verifying the correct patient, procedure site, position, and planned special equipment using sterile aseptic technique.? Under direct fluoroscopic visualization a 25-gauge Quincke tipped spinal needle was advanced at level left L5-S1 to the designated neural foramen where contrast dye was injected to show adequate spread.? There was no evidence of vascular or adverse uptake.? Epidural spread was appreciated.? The above-mentioned injectate was then placed in a 1.5 mL aliquot preceded by negative aspiration.? The needle was removed. The same procedure, at the same level, was completed on the opposite side. ? Patient was taken to the postprocedural recovery area and monitored for an appropriate length of time before found suitable for discharge in the accompaniment of a responsible adult. Anesthesia: Local Surgeon: Anil Man Pathology: none sent Condition: stable Disposition: no change
== END 2025-01-05 10:37 | disposition home or self-care (01) ==
PROVIDERS: PCP Family Medicine; Visit Provider Anesthesiology
DX: M48.062 Spinal stenosis, lumbar region with neurogenic claudication (principal); M54.50 Low back pain, unspecified
CPT/HCPCS: 64483; J0665; J1010; Q9966

== ENCOUNTER 2025-01-14 11:15 | Outpatient (OUT) | payer MEDICARE, SELFPAY ==
--- OUTSIDE RECORDS SUMMARY | 2025-01-10 17:41 | XMS_ITS | Encounter Summary ---
Author Organization [facility] Address [address] [place] [address] Care Team Providers Care Can Washer Name Role Phone Kymberly Cabrera Unavailable [phone] Sly Li MD Unavailable + [phone] Ronald Alvarado MD Unavailable Reason for Visit * Auth/Cert (Routine)SpecialtyDiagnoses / ProceduresReferred By ContactReferred To ContactCase Management Diagnoses Cauda Equina, T12 fx Procedures NA THE [employer] [facility] [address] [place], [place] [address] [address] Phone: tel: THE [employer] [facility] [address] [place], [place] [address] [address] Phone: tel: Referral IDStatusReasonStart DateExpiration DateVisits RequestedVisits [id number] Encounter Details DateTypeDepartmentCare Team (Latest Contact Info)Cmzkdpvcufd06/01/2025 6:41 PM EDTHospital Encounter Social History Tobacco UseTypesPacks/DayYears UsedDateSmoking Tobacco: FormerCigarettes Smokeless Tobacco: Never Comments:2013 CommentsNoSex and Gender InformationValueDate RecordedSex Assigned at BirthNot on fileLegal TyuHzopsg85/06/2022 11:02 AM EDTGender IdentityNot on file Sexual OrientationNot on filedocumented as of this encounter Functional Status * Hearing impairment?AnswerDate of ZhxsnngxweVuymviRl40/20/2024 3:08 PM EDT Kymberly Cabrera APRN-CNP * Visual impairment?AnswerDate of YcopjxikvcJgrriwWk59/20/2024 3:08 PM EDT Kymberly Cabrera APRN-CNP * Gait/Transfer impairment?AnswerDate of WstldujhtoEyjzcbQt90/20/2024 3:08 PM Kymberly Dixon APRN-CNP * ADL impairment?AnswerDate of JnxmyvfcixGpnqtsRr73/20/2024 3:08 PM Kymberly Dixon APRN-CNP * Difficulty with errands?AnswerDate of EdqwdjtzxcMzmocxPl12/20/2024 3:08 PM EDT Kymberly Cabrera APRN-CNP documented as of this encounter Mental Status * Cognitive difficulty?AnswerEntry IdraJalteeCg54/20/2024 3:08 PM Kymberly Dixon APRN-CNP documented in this encounter Plan of Treatment Not on file documented as of this encounter Visit Diagnoses Not on filedocumented in this encounter Care Teams Team MemberRelationshipSpecialtyStart DateEnd Kymberly Cabrera APRN-CNP [address] [place] [address] APNUrology09/15/23 Sly Li MD [address] [place], [place] [id number] PhysicianNeurosurgery11/17/23 Ronald Alvarado MD [address] [place] [id number] PhysicianNeurology08/16/24documented as of this encounter
--- OUTSIDE RECORDS SUMMARY | 2025-01-10 22:17 | XMS_ITS | Encounter Summary ---
Author Organization [facility] Address [address] [place] [address] Care Team Providers Care Supervisor Lens Generating Name Role Phone CabreraKymberly LIBBY Unavailable + [phone] Sly Li MD Unavailable + [phone] Ronald Alvarado MD Unavailable Reason for Visit * ReasonCommentsBack symptoms/complaintsTransfer from [facility]. Exacerbation of t12 spine fracture and urinary incontinence Encounter Details DateTypeDepartmentCare Team (Latest Contact Info)Zonvnvuijak05/01/2025 11:17 PM EDT - 01/11/2025 2:12 PM [facility] [address] [place] [address] Alexis Monson MD [address] [place] [address] [phone] Daina Gutierrez MD [address] [place] [address] [place], [place] [id number] Back symptoms/complaints (Transfer from [facility]. Exacerbation of t12 spine fracture and urinary incontinence ) Discharge Disposition: Discharge to Home Social History Tobacco UseTypesPacks/DayYears UsedDateSmoking Tobacco: FormerCigarettes Smokeless Tobacco: Never Comments:2013 CommentsNoSex and Gender InformationValueDate RecordedSex Assigned at BirthNot on fileLegal VcnUbywoc12/06/2022 11:02 AM EDTGender IdentityNot on file Sexual OrientationNot on filedocumented as of this encounter Last Filed Vital Signs Vital SignReadingTime TakenCommentsBlood Fhroprrb197/8411/04/2024 10:00 AM EST Onnpl014901/11/2025 10:00 AM CYOOyrsjkapnlo93.4 ??C (97.5 ??F)01/10/2025 11:32 PM EDTRespiratory Xpag821703/13/2024 10:00 AM ESTOxygen Ekealxrxec83%01/11/2025 10:00 AM ESTInhaled Oxygen Concentration--Weight--Height--Body Mass Index--documented in this encounter Functional Status * Hearing impairment?AnswerDate of UdfoovcibxPuoflcDp90/20/2024 3:08 PM EDT Kymberly Cabrera APRN-CNP * Visual impairment?AnswerDate of MdixtypaweWivrfxWv68/20/2024 3:08 PM EDT Kymberly Cabrera APRN-CNP * Gait/Transfer impairment?AnswerDate of XoapaslccePykcjvFl67/20/2024 3:08 PM Kymberly Dixon APRN-CNP * ADL impairment?AnswerDate of YaeujfibstQmcqxxVj23/20/2024 3:08 PM Kymberly Dixon APRN-CNP * Difficulty with errands?AnswerDate of TcuxzxprkaWnvwzrAv28/20/2024 3:08 PM EDT Kymberly Cabrera APRN-CNP documented as of this encounter Mental Status * Cognitive difficulty?AnswerEntry FxgsUcugfiZq38/20/2024 3:08 PM Kymberly Dixon APRN-CNP documented in this encounter Discharge Instructions * Discharge Instructions* Shaina Morales MD - 01/11/2025 6:08 AM EST Please follow-up with your primary care physician when next available. Please return to ED for any new or worsening symptoms. Return to the ED if you have weakness or numbness in your arms or legs, you are unable to control your bowels or bladder, or you are unable to walk or if you have worsening pain in your back Please return to the ED in case of any fever or chills, abdominal or flank pain, nausea or vomiting, lethargy, or any worsening symptoms. Take your antibiotics as prescribed. * Attachments The following attachments cannot be sent through Care Everywhere. * Urinary tract infections in adults (Belizean) * Urinary Incontinence, Adult ED ([place]izean) documented in this encounter Medications at Time of Discharge MedicationSigDispense QuantityRefillsLast FilledStart DateEnd Date multivitamins with minerals (CEROVITE) LIQD oral liquid 15 mL by NG Tube route daily. 236 mL 08/25/2023 polyethylene glycol (MIRALAX) packet Dissolve 1 Packet (17 g total) in 8 ounces of liquid and drink daily. 12 Each spironolactone (ALDACTONE) 25 MG tablet Take 1 Tablet by mouth.06/19/2023 triamterene-hydrochlorothiazide (MAXZIDE) 37.5-25 MG tablet Take 1 Tablet by mouth daily. vitamin E 400 UNIT capsule Take by mouth every 24 hours. B Complex Vitamins CAPS Take 1 Capsule by mouth daily. benzonatate (TESSALON) 200 MG capsule TAKE 1 CAPSULE BY MOUTH THREE TIMES DAILY FOR 10 DAYS NEEDED FOR COUGH 07/11/2023 cetirizine (ZyrTEC) 10 MG tablet Take 10 mg by mouth daily. Cholecalciferol (Vitamin D-3) 25 MCG (1000 UT) CAPS Cholecalciferol (Vitamin D3) Active PO Daily May 14, 2023 1:00am FreeTextSig: Orally Daily; Note: Source Status: Taking; Provider: Michael Yip ( )05/14/2023 Coenzyme Q10 (Co Q 10) 100 MG CAPS Take by mouth every 24 hours. Cyanocobalamin 1000 MCG CAPS Cyanocobalamin (Vitamin B-12) Active 1000 MCG PO Daily June 28, 2023 12:00am 06/28/2023 DOCOSAHEXAENOIC ACID ORAL Take 1 Capsule by mouth daily.12/22/2021 ferrous sulfate 325 (65 Fe) MG tablet Take 325 mg by mouth daily. gabapentin (NEURONTIN) 300 MG capsule 07/09/2023 guaifenesin (MUCINEX) 600 MG SR tablet Take 1,200 mg by mouth.07/11/2023 LORazepam (ATIVAN) 0.5 MG tablet Take 0.5 mg by mouth 3 times daily as needed.07/19/2023 losartan (COZAAR) 50 MG tablet Take 50 mg by mouth.07/11/2023 Magnesium Oxide 400 MG CAPS Take by mouth daily. metoprolol (LOPRESSOR) 25 MG tablet Take 12.5 mg by mouth.05/07/2023 montelukast (SINGULAIR) 10 MG tablet Take 10 mg by mouth daily. nitroglycerin (NITROSTAT) 0.4 MG sublingual tablet Nitroglycerin Active 0.4 MG SUBLINGUAL Q5M April 30, 2023 1:00am07/25/2022 calcium, elemental, (OSCAL,) 500 MG tablet Take by mouth every 24 hours. pravastatin (PRAVACHOL) 40 MG tablet Take 40 mg by mouth daily. albuterol (PROVENTIL HFA) INHALATION HFA inhaler (VENTOLIN,PROAIR,PROVENTIL) 90mcg INHALE 2 PUFFS EVERY 6 HOURS NEEDED FOR WHEEZING Ascorbic Acid 250 MG CHEW Take by mouth every 12 hours. cephALEXin (KEFLEX) 500 MG capsule Take 1 Capsule by mouth 2 times daily for 7 days. 14 Capsule 5103/14/2024documented as of this encounter Consult Notes * Surinder Martinez MD - 01/11/2025 1:20 AM EDT Orthopaedic Surgery Consult [facility] Requesting Provider / Service: ED CC: urinary retention HPI: Carly Marcelino is a 84 year old female w a past medical history of CAD, HF, and chronic T12 compressionwho [facility] ED [facility] for urinary overflow incontinence starting approximately 6 days ago directly after she underwent a spinal injection. Orthopaedic surgery is consulted for recommendations for the above chief complaint. PMH: Medical History[1] Surgical History[2] Social History[3] Allergies[4] Current Medications[5] Family History: Denies family history of clotting disorders ROS: Gen: denies fevers, chills Eyes: denies vision changes ENT: denies sore throat Resp: denies cough, weezing CV: denies chest pain Endocrine: denies fatigue GI: denies abdominal pain MSK: see above Skin: denies rash Neuro: denies numbness, tingling O: No data found. No intake or output data in the 24 hours ending 01/10/25 9196 Physical Exam: There were no vitals taken for this visit. Gen: AOx3, NAD HEENT: normocephalic atraumatic Psych: appropriate mood and affect Resp: nonlabored breathing Cardiac: Extremities WWP, RRR to peripheral palpation Neuro: CN 2-12 grossly intact Skin: Visible skin without lesions or breakdown No stepoffs or deformities TTP over lower back C5: SILT Bicep 5/5 Left; 5/5 Right C6: SILT Wrist Ext: 5/5 Left; 5/5 Right C7: SILT Triceps: 5/5 Left; 5/5 Right C8: SILT Finger flexion: 5/5 Left; 5/5 Right T1: SILT Interossei: 5/5 Left; 5/5 Right L1: SILT L2: SILT Hip flexors 5/5 Left; 5/5 Right L3: SILT Knee extension 5/5 Left; 5/5 Right L4: SILT Tib Ant. (Dorsiflexion) 5/5 Left; 5/5 Right L5: SILT EHL5/5 Left; 5/5 Right S1: SILT Planter flexion 5/5 Left; 5/5 Right Perianal sensation intact Appropriate rectal tone A secondary survey was completed to the fullest extent possible given the patient's condition, and revealed no long bone or major joint tenderness beyond the findings described above. Labs: CBC/PT/INR No lab values to display. WBC/Diff No lab values to display. Basic Metabolic Panel No lab values to display. Imaging: Weightbearing AP and lateral radiographs of the lumbar spine demonstrate grade 1-2 listhesis of L4-5. MRI demonstrates no significant canal compression. ASSESSMENT: 84 year old female with new urinary overflow incontinence PLAN: - No indication for acute Orthopaedic spine Surgical intervention at this time - Weightbearing status: WBAT - Urinary symptoms likely not secondary to spinal pathology given lack severe stenosis on MR L-Spine and absence of other associated MELBA symptoms like saddle anesthesia, decreased rectal tone, or decreased perianal sensation - Recommend urology consult - Consider removing kunz and trialing repeat PVR after adequate analgesia - Please obtain standing lumbar XR - Diet: Okay for diet from orthopaedic standpoint - Recommend FU with pain mgmt provider that administered the spinal injection - Recommend outpatient DEXA - Patient may follow up w Dr. Martinez in 2-4 weeks, please call [phone] to schedule - Pain control per ED - Dispo per ED This consult was seen and staffed within 30 minutes of the initial consult. --- Arlene Oviedo MD Orthopaedic Surgery, PGY 2 Teaching Physician Note: I reviewed the PA/SPORTS AGENT/resident's documentation and discussed the patient with the PA/SPORTS AGENT/resident. I agree with the PA/SPORTS AGENT/resident's medical decision making as documented in the PA/SPORTS AGENT/resident's note. Surinder Martinez MD [place] Department of Neurological Surgery [id number] [place], [address] [1] No past medical history on file. [2] Past Surgical History: Procedure Laterality Date TANA HOLES, HEMATOMA EVACUATION Left 08/14/2023 Procedure: TANA HOLES x2, HEMATOMA EVACUATION; Surgeon: Sly Li MD; Location: PERIOPERATIVE SERVICES; Service: Neurosurgery [3] Social History Socioeconomic History Marital status: Tobacco Use Smoking status: Former Types: Cigarettes Smokeless tobacco: Never Tobacco comments: 2013 [4] Allergies Allergen Reactions Hydantoins Anaphylactic Shock and [...] Other intolerance Nitrofurantoin Rash across nose/ cheeks [5] No current facility-administered medications for this encounter. Current Outpatient Medications: amantadine (SYMMETREL) 50 MG/5ML SOLN oral syrup, 10 mL by NG Tube route 2 times daily., Disp: 473 mL, Rfl: 0 chlorhexidine (PERIDEX) 0.12 % oral solution, Take 15 mL by mouth 2 times daily., Disp: 118 mL, Rfl: 3 multivitamins with minerals (CEROVITE) LIQD oral liquid, 15 mL by NG Tube route daily., Disp: 236 mL, Rfl: 0 polyethylene glycol (MIRALAX) packet, Dissolve 1 Packet (17 g total) in 8 ounces of liquid and drink daily., Disp: 12 Each, Rfl: 3 doxazosin (CARDURA) 4 MG tablet, Take 1 Tablet by mouth daily., Disp: 30 Tablet, Rfl: 0 folic acid 1 MG tablet, Take 1 Tablet by mouth daily for 2 doses., Disp: 2 Tablet, Rfl: 0 lisinopril (ZESTRIL) 5 MG tablet, Take 1 Tablet by mouth daily., Disp: 30 Tablet, Rfl: 0 levETIRAcetam (KEPPRA) 100 MG/ML oral solution, Take 5 mL by mouth 2 times daily., Disp: 240 mL, Rfl: 1 melatonin 3 MG TABS tablet, Take 1 Tablet by mouth at bedtime., Disp: 90 Tablet, Rfl: 0 senna (SENOKOT) 8.6 MG tablet, Take 1 Tablet by mouth daily as needed., Disp: 30 Tablet, Rfl: 0 spironolactone (ALDACTONE) 25 MG tablet, Take 1 Tablet by mouth., Disp: , Rfl: triamterene-hydrochlorothiazide (MAXZIDE) 37.5-25 MG tablet, Take 1 Tablet by mouth daily., Disp: ,Rfl: vitamin E 400 UNIT capsule, Take by mouth every 24 hours., Disp: , Rfl: B Complex Vitamins CAPS, Take 1 Capsule by mouth daily., Disp: , Rfl: benzonatate (TESSALON) 200 MG capsule, TAKE 1 CAPSULE BY MOUTH THREE TIMES DAILY FOR 10 DAYS NEEDED FOR COUGH, Disp: , Rfl: cetirizine (ZyrTEC) 10 MG tablet, Take 10 mg by mouth daily., Disp: , Rfl: Cholecalciferol (Vitamin D-3) 25 MCG (1000 UT) CAPS, Cholecalciferol (Vitamin D3) Active PO Daily May 14, 2023 1:00am FreeTextSig: Orally Daily; Note: Source Status: Taking; Provider: Michael Yip ( ), Disp: , Rfl: Coenzyme Q10 (Co Q 10) 100 MG CAPS, Take by mouth every 24 hours., Disp: , Rfl: Cyanocobalamin 1000 MCG CAPS, Cyanocobalamin (Vitamin B-12) Active 1000 MCG PO Daily June 28, 2023 12:00am, Disp: , Rfl: DOCOSAHEXAENOIC ACID ORAL, Take 1 Capsule by mouth daily., Disp: , Rfl: ferrous sulfate 325 (65 Fe) MG tablet, Take 325 mg by mouth daily., Disp: , Rfl: gabapentin (NEURONTIN) 300 MG capsule, , Disp: , Rfl: guaifenesin (MUCINEX) 600 MG SR tablet, Take 1,200 mg by mouth., Disp: , Rfl: LORazepam (ATIVAN) 0.5 MG tablet, Take 0.5 mg by mouth 3 times daily as needed., Disp: , Rfl: losartan (COZAAR) 50 MG tablet, Take 50 mg by mouth., Disp: , Rfl: Magnesium Oxide 400 MG CAPS, Take by mouth daily., Disp: , Rfl: metoprolol (LOPRESSOR) 25 MG tablet, Take 12.5 mg by mouth., Disp: , Rfl: montelukast (SINGULAIR) 10 MG tablet, Take 10 mg by mouth daily., Disp: , Rfl: nitroglycerin (NITROSTAT) 0.4 MG sublingual tablet, Nitroglycerin Active 0.4 MG SUBLINGUAL Q5M April 30, 2023 1:00am, Disp: , Rfl: calcium, elemental, (OSCAL,) 500 MG tablet, Take by mouth every 24 hours., Disp: , Rfl: pravastatin (PRAVACHOL) 40 MG tablet, Take 40 mg by mouth daily., Disp: , Rfl: albuterol (PROVENTIL HFA) INHALATION HFA inhaler (VENTOLIN,PROAIR,PROVENTIL) 90mcg, INHALE 2 PUFFS EVERY 6 HOURS NEEDED FOR WHEEZING, Disp: , Rfl: Ascorbic Acid 250 MG CHEW, Take by mouth every 12 hours., Disp: , Rfl: documented in this encounter ED Notes * Daina Gutierrez MD - 01/11/2025 2:12 PM EST GHISLAINE for JF: 84 yo female, h/o cad, hf, t2dm, t12 compression fracture, htn, transfer from OSH for spine eval, given new onset urinary incont s/p recent spinal injection. MRI with spinal stenosis, no e/o sig canal compression S/o pending spine consult. Spine rec no acute surgical int, wbat UA c/w infection in ED. Received ceftriaxone and plan op keflex. Dc home with op f/u and rted instructions. Daina Gutierrez MD * Shaina Moralse MD - 01/11/2025 11:44 AM EST Sign-out note: [place] 84 yo F, hx of HTN, DL, here for cauda equina rule out, MRI negative, sent here for spine eval. Spine recs Under my care: Patient was reassessed, she is well-appearing. No acute distress. Reports feeling well and denies any complaints at this point. No abdominal pain or flank pain. No nausea or vomiting. No fever or chills. Hemodynamically stable with normal vital signs. Labs reviewed from OSH yesterday, normal creatinine. No leukocytosis. No focal deficits noted on my exam. Patient reports that she has a chronic history of urinary incontinence and has been following up with Urology. However reports that her symptoms were getting worse and that is why she presented to the ED initially. Urinalysis was ordered with concerns for urinary tract infection, patient was given IV Rocephin in the ED, culture in process. Spine team assessed the patient, no indication for acute intervention, patient will follow up with spine in clinic in 2 weeks. Patient was discharged home on Keflex, educated about close outpatient follow up and strict return precautions. Discharged in a stable condition. * Alexis Monson MD - 01/11/2025 12:20 AM EDT Images from the original note were not included. EMERGENCY DEPARTMENT - VISIT NOTE HISTORY OF PRESENT ILLNESS chief complaint Guest Relations Representative: not needed - patient preferred language is [place]an. The history is provided by the Patient. Carly Marcelino is a 84 year old female PMH cerebral amyloid angiopathy, carotid artery stenosis, SDH presenting to the ED for back pain. Patient reports back injections and her most recent was 5 days ago. Reports the next day she began having urinary incontinence which has been worsening. Denies fevers, chills, IVDU, thinners, leg paresthesias, weakness. Reports no recent falls, denies back pain. MRI done at OSH without root compression. Spine with recs for eval at this ED. Review of External (Non- ED) Notes: Discharge summaries/office visit reviewed and show transfer note for c/f cauda equina. REVIEW OF SYSTEMS Negative other than as noted above. PAST HISTORY Pertinent Past History: Medical History[1] Surgical History[2] Pertinent Social History: Social History Occupational History Not on file Tobacco Use Smoking status: Former Types: Cigarettes Smokeless tobacco: Never Tobacco comments: 2013 Substance and Sexual Activity Alcohol use: Not on file Drug use: Not on file Sexual activity: Not on file PHYSICAL EXAM BP 166/73 Pulse 54 Temp 97.5 ??F (36.4 ??C) (Oral) Resp 12 SpO2 99% Physical Exam Triage note and vital signs reviewed General: Well-appearing, NAD and non-toxic appearing HEENT: Normocephalic; EOM intact, no scleral icterus; no epistaxis, rhinorrhea, or congestion; neckis supple Mouth: MMM Cardiovascular: RRR, no mumurs, rubs or gallops. 2+ radials and DPs bilaterally Respiratory: No respiratory distress, CTAB without wheezes, rales or ronchi Abdomen: Soft, non-distended, nontender to palpation, no guarding. No CVA tenderness. MSK: Full ROM, no peripheral edema Skin: No rashes, capillary refill <2 seconds. Warm distal extremities Neuro: A&Ox3. Normal gait. No clonus, negative Babinski, n5/5 str in dorsiflexion/plantar flexion, knee flexion, hip flexors. Mildly diminished patellar reflexes bilaterally MEDICAL DECISION MAKING and ED COURSE Course & Results Interpretation: ED Course as of 01/11/25 0603 Sun Jan 11, 2025 0418 [place] number: [id number] [TRAV] ED Course User Index [TRAV] Seven Diehl MD [facility] Management Decisions: Admission considered pending ortho recs Diagnoses considered include spinal hematoma, epidural abscess, cauda equina, FTT Discussion with External Provider: [employer] Supervisor from ortho service recommendations pending Carly Marcelino 84 year old with pmh as noted above presenting to the emergency department for back pain, urinary incontinence. Vital signs and physical exam as noted above and are reassuring. Discussed with the Orthopedic surgery, pending final recommendations on signout. MRI outside hospital negative, lower suspicion for acute surgical intervention. Dispo: Pending Evaluated by EM attending Frommelt, Luke IMPRESSION AND DISPOSITION Clinical Impression Diagnosis Comment Urinary incontinence, unspecified type [R32] Cystitis [N30.90] Fall, initial encounter [W19.XXXA] Chronic bilateral low back pain without sciatica [M54.50, G89.29] Abnormal MRI [R93.89] Seven Diehl MD EM PGY-3 Pager #[phone] ATTENDING NOTE I saw and evaluated the patient. I personally obtained the kuo and critical portions of the historyand physical exam. I reviewed the resident's documentation and discussed the patient with the resident. I agree with the resident's medical decision making as documented in the resident's note. Alexis Monson MD [1] No past medical history on file. [2] Past Surgical History: Procedure Laterality Date TANA HOLES, HEMATOMA EVACUATION Left 08/14/2023 Procedure: TANA HOLES x2, HEMATOMA EVACUATION; Surgeon: Sly Li MD; Location: PERIOPERATIVE SERVICES; Service: Neurosurgery documented in this encounter Plan of Treatment Not on file documented as of this encounter Procedures Procedure NamePriorityDate/TimeAssociated DiagnosisCommentsXR L-SPINE AP+LATERAL 2-3 ODGIWLPTK13/02/2025 10:53 AM EST URINALYSIS WITH REFLEX CULTURE KYMXLNGBKGKQXMT49/02/2025 10:12 AM EST URINALYSIS W/REFLEX ZLFKJDGBHWY07/02/2025 10:12 AM EST URINE VHPLQWNTBDF68/02/2025 10:12 AM EST MR NEURO IMAGE LEGZDSZWVM99/04/2024 4:28 AM ESTMR NEURO IMAGE IMPORTSTAT 01/11/2025 4:27 AM ESTXRAY HEAD/SPINE IMAGE PUJQDKSLJK69/02/2025 12:41 AM EDT documented in this encounter Results * XR L-SPINE AP+LATERAL 2-3 VIEWS (01/11/2025 10:53 AM EST)Anatomical Region LateralityModalityXR L- Spine, L-spineN/AComputed RadiographySpecimen (Source) Anatomical Location / LateralityCollection Method / VolumeCollection Time Received Time01/11/2025 10:56 AM EST Narrative 01/11/2025 11:00 AM EST EXAMINATION: XR L-SPINE AP+LATERAL 2-3 VIEWSPRO 01/11/2025 10:53 AM CLINICAL HISTORY: UPRIGHT please ASSOCIATED DIAGNOSIS: ORDERING PROVIDER: SHAINA MORALES TECHNORACIO NOTE: COMPARISON: XR T-SPINE/L-SPINE JNCT ONLY 2 VIEWS 10/08/2023 9:13 PM FINDINGS: Moderate to severe endplate degenerative changes with small osteophytes. Mild lumbar dextro curvature. No acute fracture or aggressive osseous lesion. Grade 1 degenerative spondylolisthesis of L4 on L5 and minimal L3 on L4. No visible pars defect. Atherosclerotic ossifications of the aorta. Imaged lower thoracic spine is poorly assessed due to underpenetration. Kunz catheter in place. IMPRESSION: No compression deformity or significant listhesis. Moderate to severe lumbar spondylosis. Procedure Note Vinh Hermosillo MD - 01/11/2025 EXAMINATION: XR L-SPINE AP+LATERAL 2-3 VIEWSPRO 01/11/2025 10:53 AM CLINICAL HISTORY: UPRIGHT please ASSOCIATED DIAGNOSIS: ORDERING PROVIDER: SHAINA MORALES TECHNORACIO NOTE: COMPARISON: XR T-SPINE/L-SPINE JNCT ONLY 2 VIEWS 10/08/2023 9:13 PM FINDINGS: Moderate to severe endplate degenerative changes with small osteophytes.Mild lumbar dextro curvature. No acute fracture or aggressive osseouslesion. Grade 1 degenerative spondylolisthesis of L4 on L5 and minimal L3on L4. No visible pars defect. Atherosclerotic ossifications of the aorta.Imaged lower thoracic spine is poorly assessed due to underpenetration.Kunz catheter in place. IMPRESSION: No compression deformity or significant listhesis. Moderate to severe lumbar spondylosis. Authorizing ProviderResult TypeResult StatusShaina RICE DIAGNOSTIC X-RAY Final Result * URINE CULTURE (01/11/2025 10:12 AM EST)ComponentValueRef RangeTest Method Analysis TimePerformed AtPathologist SignatureUrine Dvfpzuu05,000 - 100,000 CFU/ml No significant growth; skin/urogenital contamination inkbosh8701/12/2025 6:59 AM [facility] PATHOLOGY LABORATORYSpecimen (Source)Anatomical Location / LateralityCollection Method / VolumeCollection TimeReceived TimeUrineMID- STREAM URINE SPECIMEN / Wdebrdv0401/11/2025 10:12 AM EST01/11/2025 10:16 AM EST Narrative Authorizing ProviderResult TypeResult StatusShaina RICE MICROBIOLOGYFinal ResultPerforming OrganizationAddressCity/State/ZIP CodePhone Number [facility] [address] [place], [place] [phone] * (ABNORMAL) URINALYSIS WITH REFLEX CULTURE PERFORMABLE (01/11/2025 10:12 AM EST)ComponentValueRef RangeTest MethodAnalysis TimePerformed AtPathologist SignatureColorLight TnbrrtJjemurqdk92/02/2025 10:24 AM [facility] PATHOLOGY MGZQRUJGVLEhrbapwintDcvdypWyygj25/02/2025 10:24 AM [facility] pH7.55.0 - 8.011 10:24 AM [facility] PATHOLOGY LABORATORYSpec Gravity1.018 <=1.7028701/11/2025 10:24 AM [facility] PATHOLOGY SABHGRYTGQOcdrqxd49Tqvczfkf mg/dL 01/11/2025 10:24 AM [facility] PATHOLOGY LABORATORYBloodModerate(A)Negative 01/11/2025 10:24 AM [facility] PATHOLOGY LABORATORYBilirubinNegativeNegative 01/11/2025 10:24 AM [facility] PATHOLOGY LABORATORYUrobilinogenNegativeNegative mg/dL01/11/2025 10:24 AM [facility] PATHOLOGY LABORATORYKetonesTrace(A)Negative mg/dL01/11/2025 10:24 AM [facility] PATHOLOGY LABORATORYLeuk. EsteraseNegative Xwlkquxo46/02/2025 10:24 AM [facility] PATHOLOGY LABORATORYNitritePositive(A) Gduswamy09/02/2025 10:24 AM [facility] LABORATORYGlucoseNegativeNegative mg/dL01/11/2025 10:24 AM [facility] PATHOLOGY LABORATORYWBC6-10(A)0 - 2 /HPF 01/11/2025 10:24 AM [facility] PATHOLOGY LABORATORYRBC>100(A)0 - 2 /HPF01/11/2025 10:24 AM [facility] PATHOLOGY LABORATORYBacteriaFew/HPF01/11/2025 10:24 AM [facility] PATHOLOGY LABORATORYMucous LggadosYttljmr26/02/2025 10:24 AM [facility] PATHOLOGY LABORATORYAmorphous PhosphatesFew/HPF01/11/2025 10:24 AM [facility] PATHOLOGY LABORATORYSpecimen (Source)Anatomical Location / LateralityCollection Method / VolumeCollection TimeReceived TimeUrineMID-STREAM URINE SPECIMEN / Unknown 01/11/2025 10:12 AM EST01/11/2025 10:16 AM EST Narrative [facility] - 01/11/2025 10:24 AM EST A negative leukocyte esterase AND negative nitrite test or absence of pyuria (urine WBC count <= 5-10) make a UTI (urinary tract infection) very unlikely in a non-neutropenic adult (<=5% likelihood in many studies). ? A positive leukocyte esterase, nitrite and/or pyuria is a nonspecific ? result. ??This can be seen in conditions other than a UTI e.g. asymptomatic bacteriuria, gynecologic infections, sexually transmitted infections, and noninfectious conditions (positive predictive value for UTI around 50%) ?? Authorizing ProviderResult TypeResult StatusShaina Morales MD98 GENERAL LABFinal ResultPerforming OrganizationAddressCity/State/ZIP CodePhone Number [facility] [address] [place] [phone] * MR NEURO IMAGE IMPORT(MICHELLE) (01/11/2025 4:28 AM EST)Specimen (Source)Anatomical Location / LateralityCollection Method / VolumeCollection TimeReceived Time Narrative Authorizing ProviderResult TypeResult StatusPrecious Oyem MDEC DIAGNOSTIC X-RAY Final Result * MR NEURO IMAGE IMPORT(MICHELLE) (01/11/2025 4:27 AM EST)Specimen (Source)Anatomical Location / LateralityCollection Method / VolumeCollection TimeReceived Time Narrative Authorizing ProviderResult TypeResult StatusPrecious Oyem MDEC DIAGNOSTIC X-RAY Final Result * XRAY HEAD/SPINE IMAGE IMPORT(MICHELLE) (01/11/2025 12:41 AM EDT)Specimen (Source) Anatomical Location / LateralityCollection Method / VolumeCollection Time Received Time Narrative Authorizing ProviderResult TypeResult StatusPrecious Oye MDEC DIAGNOSTIC X-RAY Final Result documented in this encounter Visit Diagnoses Diagnosis Urinary incontinence, unspecified type- Primary Cystitis Cystitis, unspecified Fall, initial encounter Chronic bilateral low back pain without sciatica Abnormal MRI Other nonspecific (abnormal) findings on radiological and other examinations of body structure documented in this encounter Administered Medications Medication OrderMAR ActionAction DateDoseRateSite cefTRIAXone (ROCEPHIN) 1,000 mg in sodium chloride 9.6 mL IV push 1,000 mg, Intravenous, Once, 1 dose, On 01/11/25 at 1112 IV New Bag01/11/2025 10:55 AM EST1,000 mg192 mL/hr cetirizine (ZyrTEC) tablet 10 mg, Oral, Once, 1 dose, On 01/11/25 at 1038 Given01/11/2025 10:49 AM EST10 mg gabapentin (NEURONTIN) capsule 300 mg, Oral, Once, 1 dose, On 01/11/25 at 1038 Given01/11/2025 10:49 AM MOV754 mgdocumented in this encounter Active and Recently Administered Medications Due to Daylight Saving Time, this section may contain times in both EDT and EST. Medication Order//04/2024 cefTRIAXone (ROCEPHIN) 1,000 mg in sodium chloride 9.6 mL IV push (COMPLETED) 1,000 mg, Intravenous, Once, 1 dose, On 01/11/25 at 1112 * 1055 (IV New Bag - Provider: Amilcar Burgess, RN) * 1058 (IV Stop - Provider: Amilcar Burgess, RN) cetirizine (ZyrTEC) tablet (COMPLETED) 10 mg, Oral, Once, 1 dose, On 01/11/25 at 1038 * 1049 (Given - Provider: Amilcar Burgess, CARLOS) gabapentin (NEURONTIN) capsule (COMPLETED) 300 mg, Oral, Once, 1 dose, On 01/11/25 at 1038 * 1049 (Given - Provider: Amilcar Burgess RN) documented in this encounter Care Teams Team MemberRelationshipSpecialtyStart DateEnd Kymberly Cabrera, YO-SPORTS AGENT [address] [place] [address] APNUrology09/15/23 Sly Li MD [address] [place] [address] PhysicianNeurosurgery11/17/23 Ronald Alvarado MD [address] [place] [address] PhysicianNeurology08/16/24documented as of this encounter
--- OUTSIDE RECORDS SUMMARY | 2025-01-14 11:18 | XMS_ITS | Encounter Summary ---
Author Organization [facility] Address [address] [place] [address] Phone Care Team Providers Care Window Shade Ring Coverer Name Role Phone Amado Mckenzie DO Primary Care Provider [phone] Encounter Details DateTypeDepartmentCare Team (Latest Contact Info)Bokwuwkhifj82/01/2025Orders Only [facility] [address] [place] [address] [place] [address] [place], [place] [id number] Social History Tobacco UseTypesPacks/DayYears UsedDateSmoking Tobacco: Never Assessed CommentsUnknownSex and Gender InformationValueDate RecordedSex Assigned at Not on fileLegal TobQpvsdo24/25/2022 11:47 AM ESTGender IdentityNot on file Sexual OrientationNot on filedocumented as of this encounter Plan of Treatment Not on file documented as of this encounter Procedures Procedure NamePriorityDate/TimeAssociated DiagnosisCommentsNON-[facility] HIE CAPILLARY GLUCOSE BZLDodsxxz19/01/2025 8:09 PM EDT MR THORACIC SPINE WO HXIRCEVB82/01/2025 4:38 PM EDT MR LUMBAR SPINE WO MTTARETS55/01/2025 4:38 PM EDT NON-[facility] HIE CAPILLARY GLUCOSE ZLVVdtjfyi86/01/2025 2:06 PM EDT XR CHEST 1 VIEW01/10/2025 10:[address] ABDOMEN PELVIS W IV IAEQOKDG34/01/2025 10:16 AM EDT NON-[facility] HIE EXTRA CEJTKyjzkhu77/01/2025 9:53 AM EDT NON-[facility] HIE CBC W/ AUTO EOYGRpzezxe15/01/2025 9:53 AM EDT NON-[facility] HIE TROPONIN 0 HR.Sfrslyl1901/10/2025 9:53 AM EDT NON-[facility] HIE QUSETmvuwlu40/01/2025 9:53 AM EDT NON-[facility] HIE VYIJictdgj02/01/2025 9:53 AM EDT NON-[facility] HIE ZHGLwzjlan21/01/2025 9:53 AM EDT documented in this encounter Results * NON-[facility] HIE Capillary Glucose POC (01/10/2025 8:09 PM EDT)ComponentValueRef RangeTest MethodAnalysis TimePerformed AtPathologist SignatureNON-[facility] HIE Glucose [id number] - 99 mg/dLFISHSAINT LUKE INSTITUTEComment:Notified RN/ Specimen (Source)Anatomical Location / LateralityCollection Method / Volume Collection TimeReceived TimeCHOCTAW NATION [facility] [place] Lab- Blood01/10/2025 8:09 PM EDT Narrative Authorizing ProviderResult TypeResult StatusSamutim Garcia MDLAB BLOOD ORDERABLESFinal ResultPerforming OrganizationAddressCity/State/ZIP CodePhone Number [facility] [address] [place] [address], * MR thoracic spine wo IV contrast (01/10/2025 4:38 PM EDT)Anatomical Region LateralityModalityNeuroMagnetic ResonanceSpecimen (Source)Anatomical Location / LateralityCollection Method / VolumeCollection TimeReceived Time01/10/2025 4:38 PM EDT Narrative 01/11/2025 8:38 AM EST Exam Date/Time: 01/10/2025 17:37 EDT Reason for Exam: Fracture Report IMPRESSION: ACUTE ON CHRONIC COMPRESSION FRACTURE OF T12 WITH LOSS OF HEIGHT OF APPROXIMATELY 60% WITH MINIMAL RETROPULSION OF THE POSTERIOR SUPERIOR ENDPLATE. ACUTE MINIMAL COMPRESSION FRACTURE OF T11 INVOLVING THE INFERIOR ENDPLATE VERSUS DEGENERATIVE OR REACTIVE ENDPLATE EDEMA. EXAMINATION: MRI of the thoracic spine without contrast. HISTORY: Back pain COMPARISON: Chest CT 02/15/2024 TECHNIQUE: Multiplanar multisequence MRI of the thoracic spine was performed without contrast. FINDINGS: The thoracic spinal cord is normal in signal and morphology. No focal cord signal abnormality. The alignment of the thoracic spine is anatomic. Acute on chronic compression fracture of T12 with loss of height of approximately 60% with minimal retropulsion of the posterior superior endplate, minimally progressed compared to prior examination. Acute minimal compression fracture of T11 involving the inferior endplate versus degenerative or reactive endplate edema. No significant disc bulge. No large spinal canal stenosis. Moderate bilateral neuroforaminal stenosis at T12-L1. Visualized paravertebral soft tissues are grossly unremarkable. Ordering Provider: Avery Garcia FINAL REPORT Dictated: ??01/11/2025 8:35 am ? Sean Clemente DO Signed (Electronic Signature): ??01/11/2025 8:35 am Signed by: ??Sean Clemente DO Transcribed by: ??DP ? Technologist: ??JJQ Authorizing ProviderResult TypeResult StatusSamuel Radha VICTORIMG MRI PROCEDURES Final Result * MR lumbar spine wo IV contrast (01/10/2025 4:38 PM EDT)Anatomical Region LateralityModalityNeuroMagnetic ResonanceSpecimen (Source)Anatomical Location / LateralityCollection Method / VolumeCollection TimeReceived Time01/10/2025 4:38 PM EDT Narrative 01/11/2025 8:45 AM EST Exam Date/Time: 01/10/2025 17:36 EDT Reason for Exam: Spinal stenosis Report IMPRESSION: DEGENERATIVE CHANGES OF THE LUMBAR SPINE DETAILED. NO EVIDENCE OF RECENT FRACTURE OF THE LUMBAR SPINE. EXAM: MRI of the lumbar spine without contrast History: Low back pain Technique: Multiplanar multisequence MRI of the lumbar spine was obtained without intravenous contrast. Comparison: CT abdomen pelvis 01/10/2025 Findings: The conus medullaris ends normally. Mild dextrocurvature. The vertebral body heights are well maintained. There is no aggressive bone marrow signal abnormality. Disc desiccation throughout the lumbar spine. Moderate intervertebral disc height loss at L4-L5 and mild intervertebral disc height loss elsewhere throughout the lumbar spine. T12-L1: Retropulsion of the posterior endplate. Moderate facet arthropathy. Moderate left and severe right neuroforaminal stenosis. No spinal canal stenosis. L1-L2: Minimal retrolisthesis of L1 on L2. Small disc bulge. Mild facet arthropathy. Mild spinal canal stenosis. Mild to moderate bilateral neuroforaminal stenosis. L2-L3: Minimal retrolisthesis of L2 on L3. Small disc bulge with tiny annular fissure. Mild facet arthropathy. Mild spinal canal stenosis. Moderate bilateral neuroforaminal stenosis. L3-L4: Small disc bulge. Advanced facet arthropathy. Prominent osteophyte versus heterogenous facet synovial cyst along the anterior margin of the left facet joint. Moderate to severe spinal canal stenosis. Delayed left and moderate right neuroforaminal stenosis. L4-L5: Anterolisthesis of L4 on L5 of approximately 4 mm secondary to advanced facet arthropathy. Small disc bulge. Moderate spinal canal stenosis. Mild right and moderate left neuroforaminal stenosis. L5-S1: Small disc bulge eccentric to the right. Moderate facet arthropathy. Mild Report right neuroforaminal stenosis. No spinal canal stenosis. Visualized paravertebral soft tissues appear within normal limits as visualized. Degenerative changes of the cervical spine are noted on the localizer images. Technical Comments: Ordering Provider: Avery Garcia FINAL REPORT Dictated: ??01/11/2025 8:42 am ? Sean Clemente DO Signed (Electronic Signature): ??01/11/2025 8:42 am Signed by: ??Sean Clemente DO Transcribed by: ??DP ? Technologist: ??JJQ Authorizing ProviderResult TypeResult StatusSamuel Radha MDIMG MRI PROCEDURES Final Result * NON-[facility] HIE Capillary Glucose POC (01/10/2025 2:06 PM EDT)ComponentValueRef RangeTest MethodAnalysis TimePerformed AtPathologist SignatureNON- HIE Glucose [id number] - 99 mg/dLMAGRUDER MEMORIAL HOSPITALComment:Notified RN/MD Specimen (Source)Anatomical Location / LateralityCollection Method / Volume Collection TimeReceived TimeCHOCTAW NATION [facility] [place] Lab- Blood01/10/2025 2:06 PM EDT Narrative Authorizing ProviderResult TypeResult StatusAvery BATES BLOOD ORDERABLESFinal ResultPerforming OrganizationAddressCity/State/ZIP CodePhone Number [facility] [address] [place] [address], [place] * XR chest 1 view (01/10/2025 10:16 AM EDT)Anatomical RegionLateralityModality Thoracic, ChestRadiographic ImagingSpecimen (Source)Anatomical Location / LateralityCollection Method / VolumeCollection TimeReceived Time01/10/2025 10:16 AM EDT Narrative 01/10/2025 11:25 AM EDT Exam Date/Time: 01/10/2025 10:55 EDT Reason for Exam: Shortness of breath (SOB) Report IMPRESSION: NO RADIOGRAPHIC EVIDENCE OF ACUTE INTRATHORACIC PROCESS. EXAM: XR Chest Single View History: Shortness of breath Technique: Portable AP view of the chest. Comparison: 04/11/2024 Findings: Atherosclerotic calcification of the thoracic aorta. The cardiomediastinal silhouette is within normal limits. ??No pneumothorax, pleural effusion, or consolidation. Postsurgical changes of bilateral shoulder arthroplasty. No acute osseous abnormality. Ordering Provider: Avery Garcia FINAL REPORT Dictated: ??01/10/2025 11:22 am ?Sean Clemente DO Signed (Electronic Signature): ??01/10/2025 11:22 am Signed by: ??Sean Clemente DO Transcribed by: ??DP ? Technologist: ??JLW Authorizing ProviderResult TypeResult StatusAvery SEWELLG XR PROCEDURES Final Result * CT abdomen pelvis w IV contrast (01/10/2025 10:16 AM EDT)Anatomical Region LateralityModalityAbdominal, BodyComputed TomographySpecimen (Source) Anatomical Location / LateralityCollection Method / VolumeCollection Time Received Time01/10/2025 10:16 AM EDT Narrative 01/10/2025 11:24 AM EDT Exam Date/Time: 01/10/2025 10:55 EDT Reason for Exam: Pain Report IMPRESSION: ACUTE APPEARING PROGRESSION OF COMPRESSION FRACTURE OF T12 DETAILED. DIVERTICULOSIS WITHOUT DIVERTICULITIS. EXAM: CT Abdomen/Pelvis w/ Contrast History: Low back pain. Generalized weakness. Shortness of breath. Urinary incontinence. Technique: Multiple contiguous axial images were obtained of the abdomen and pelvis from the level of the lung bases through the ischial tuberosities with contrast. Multiplanar reformats were obtained. Delayed images were obtained. Unless otherwise stated, incidental findings identified in this report do not require routine follow-up imaging. Comparison: CT abdomen pelvis 10/16/2023 Findings: Bilateral lung base scarring. Stable subcentimeter cyst of the right lobe of the liver. The liver is otherwise unremarkable. Calcifications of the spleen likely represents sequela of prior granulomatous disease. The stomach, gallbladder, pancreas, and adrenal glands are within normal limits. The kidneys enhance uniformly. Simple 2 cm left renal cyst, simple 1.5 cm right renal cyst, and simple 1 cm right renal cyst and not significantly changed. No enhancing renal lesion. No urinary tract calculi or hydronephrosis. The urinary bladder is decompressed around a Mcgregor catheter. The uterus is absent. Trace free fluid within the pelvis is nonspecific. Abdominal aorta is nonaneurysmal. ??Atherosclerotic desiccation of the abdominal aorta. 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 No retroperitoneal or abdominal/pelvic lymphadenopathy. No small bowel obstruction. ??Colonic diverticuli are identified. No overt colonic mass or pericolonic inflammation. No findings of acute appendicitis. No pneumatosis intestinalis, portal venous gas, or pneumoperitoneum. Interval progression of compression fracture of T12, now with retropulsion of approximately 4 mm a loss of height of approximately 6 cm (previously with loss of height of approximately 50% and retropulsion of the posterior superior endplate of Report approximately [address] scans at this facility use dose modulation, iterative reconstruction, and/or weight based dosing when appropriate to reduce radiation dose to as low as reasonably achievable. Technical Comments: GFR (mL/min/1/73m2) na Contrast: Isovue 300 Contrast amount in ml's: 100.00 Ordering Provider: Avery Garcia FINAL REPORT Dictated: ??01/10/2025 11:21 am ?Sean Clemente DO Signed (Electronic Signature): ??01/10/2025 11:21 am Signed by: ??Sean Clemente DO Transcribed by: ??DP ? Technologist: ??JLW Authorizing ProviderResult TypeResult Girish Garcia MDIMG CT PROCEDURES Final Result * (ABNORMAL) NON-[facility] HIE BNP (01/10/2025 9:53 AM EDT)ComponentValueRef RangeTest MethodAnalysis TimePerformed AtPathologist SignatureNON- HIE DDH362(H)5 - 80 pg/mLSELECT MEDICAL SPECIALTY HOSPITAL - YOUNGSTOWNpecimen (Source)Anatomical Location / LateralityCollection Method / VolumeCollection TimeReceived TimeCHOCTAW NATION [facility] [place] Lab- Blood01/10/2025 9:53 AM EDT Narrative Authorizing ProviderResult TypeResult Girish Garcia MDLAB BLOOD ORDERABLESFinal ResultPerforming OrganizationAddressCity/State/[place] [address], * (ABNORMAL) NON-[facility] HIE Troponin 0 Hr. (01/10/2025 9:53 AM EDT)ComponentValueRef RangeTest MethodAnalysis TimePerformed AtPathologist SignatureNON-UH HIE TROPONIN7.00(L)10.10 - 27.10 pg/mLMAGRUDER MEMORIAL HOSPITALComment:The 95% CI (Confidence Interval) PPV (Positive Predictive Value) for myocardial infarction in females is 38 pg/mL, in males 51 pg/mL. The results should be used in conjunction with clinical conditions of myocardial infarction.(Access High Sensitivity Troponin I Instructions For Use, Raegan Neotsu, October 2017)Specimen (Source)Anatomical Location / LateralityCollection Method / VolumeCollection TimeReceived [facility] Lab- Blood01/10/2025 9:53 AM EDT Narrative Authorizing ProviderResult TypeResult StatusAvery Garcia MDLAB BLOOD ORDERABLESFinal ResultPerforming OrganizationAddressCity/State/ZIP CodePhone Number [facility] [address] [place] [address], [place] * NON-[facility] HIE eGFR (01/10/2025 9:53 AM EDT)ComponentValueRef RangeTest Method Analysis TimePerformed AtPathologist SignatureNON- HIE EGFR72>=59 mL/min/1.73 p5VBIFJZSELECT MEDICAL SPECIALTY HOSPITAL - YOUNGSTOWNpecimen (Source)Anatomical Location / LateralityCollection Method / VolumeCollection TimeReceived TimeCHOCTAW NATION [facility] [place] Lab- Blood01/10/2025 9:53 AM EDT Narrative Authorizing ProviderResult TypeResult StatusSaroger BATES BLOOD ORDERABLESFinal ResultPerforming OrganizationAddressCity/State/ZIP CodePhone Number [facility] [address] [place] [address], * (ABNORMAL) NON- HIE CMP (01/10/2025 9:53 AM EDT)ComponentValueRef RangeTest MethodAnalysis TimePerformed AtPathologist SignatureMORGAN HOSPITAL & MEDICAL CENTERE GLUCOSE KHV5116 - 199 mg/dLKETTERING [facility] BUN22(H)5 - 21 mg/dLKETTERING [facility] CREATININE0.80.5 - 1.3 mg/dLKETTERING [facility]ALTH [facility] CALCIUM LVL9.28.9 - 11.1 mg/dLKETTERING HEALTH [facility]IAL[facility] SODIUM [id number] - 145 mmol/LFGENESIS [facility] HIE POTASSIUM LVL4.33.5 - 5.3 mmol/LFBLUFFTON HOSPITAL HIE TTKUFEYF233944 - 111 mmol/LFBLUFFTON HOSPITAL HIE KF39349 - 31 mmol/LFBLUFFTON HOSPITAL HIE ALK DNHN5770 - 98 Int._Unit/L [facility] HIE BILI TOTAL0.40.0 - 1.1 mg/dLLIMA CITY HOSPITAL HIE ALBUMIN LVL4.03.3 - 5.0 gm/dLLIMA CITY HOSPITAL HIE TOTAL PROTEIN6.96.0 - 7.8 gm/dLMAGRUDER MEMORIAL [facility]OSPITAL NON-[facility] HIE QSQ694 - 46 Int._Unit/LFCLINTON MEMORIAL HOSPITALNON- HIE PMS964 - 43 Int._Unit/LFCLINTON MEMORIAL HOSPITALNON- HIE BUN/CREAT RATIO28(H)10 - 20 No UnitsUNIVERSITY HOSPITALS A[facility]- HIE AGAP86 - 16 mEq/LFDETWILER MEMORIAL HOSPITAL- HIE GLOBULIN2.91.4 - 4.0 gm/dLMAGRUDER MEMORIAL [facility] NON- HIE A/G RATIO1.41.1 - 2.2FBARNESVILLE HOSPITALpecimen (Source) Anatomical Location / LateralityCollection Method / VolumeCollection Time Received TimeCHOCTAW NATION [facility] Lab- Blood01/10/2025 9:53 AM EDT Narrative Authorizing ProviderResult TypeResult StatusAvery BATES BLOOD ORDERABLESFinal ResultPerforming OrganizationAddressCity/State/[place] [address], * NON-[facility] HIE EXTRA BLUE (01/10/2025 9:53 AM EDT)ComponentValueRef RangeTest MethodAnalysis TimePerformed AtPathologist SignatureBANNER DEL E WEBB MEDICAL CENTER-[facility]ALL[facility]ENTERE TUBE COLLECTED PLASMAYesSELECT MEDICAL SPECIALTY [facility]OS[facility] - YOUNGSTOWNpecimen (Source)Anatomical Location / LateralityCollection Method / VolumeCollection TimeReceived [facility] Lab- Blood01/10/2025 9:53 AM EDT Narrative Authorizing ProviderResult TypeResult StatusAvery Garcia [facility] BLOOD ORDERABLESFinal ResultPerforming OrganizationAddressCity/State/[place] [address], * (ABNORMAL) NON-[facility] HIE CBC w/ Auto Diff (01/10/2025 9:53 AM EDT)ComponentValue Ref RangeTest MethodAnalysis TimePerformed AtPathologist SignatureNON- HIE WBC4.74.0 - 11.0 E9/LFBLUFFTON HOSPITAL HIE RBC3.9(L)4.3 - 5.9 E12/LFBLUFFTON HOSPITAL HIE HGB12.312.0 - 16.0 gm/dLUNIVERSITY HOSPITALS AHU[facility]- HIE HCT35.934.0 - 46.0 %[facility] NON- HIE RDW13.410.9 - 14.2 %[facility] HIE MCH31.2 27.0 - 34.0 pgFBLUFFTON HOSPITAL HIE MCHC34.231.4 - 36.0 gm/dL [facility] HIE MCV91.380.0 - 100.0 fLLIMA CITY [facility]OSPITAL HIE MPV7.66.4 - 10.8 [facility] HIE RIYYLDRT203.0150.0 - 500.0 E9/[facility] HIE NEUTRO AUTO65.136.0 - 75.0 %[facility] HIE LYMPH AUTO 21.014.0 - 50.0 %[facility] HIE MONO AUTO10.44.0 - 14.0 %[facility] HIE EOS AUTO2.90.0 - 8.0 %[facility] HIE BASOPHIL AUTO0.60.0 - 2.0 %[facility] HIE NEUTRO ABSOLUTE3.12.0 - 7.5 E9/[facility] NON- HIE LYMPH ABSOLUTE1.01.0 - 4.0 E9/[facility] HIE MONO ABSOLUTE0.50.2 - 1.0 E9/[facility] HIE EOS ABSOLUTE0.10.0 - 0.5 E9/[facility] HIE BASOPHIL ABSOLUTE0.00.0 - 0.2 E9/DETWILER MEMORIAL HOSPITALpecimen (Source) Anatomical Location / LateralityCollection Method / VolumeCollection Time Received TimeCHOCTAW NATION [facility] [place] Lab- Blood01/10/2025 9:53 AM EDT Narrative Authorizing ProviderResult TypeResult StatusSamutim BATES BLOOD ORDERABLESFinal ResultPerforming OrganizationAddressCity/State/ZIP CodePhone Number [facility] [address] [place] [address], documented in this encounter Visit Diagnoses Not on filedocumented in this encounter Care Teams Team MemberRelationshipSpecialtyStart DateEnd Date Amado Mckenzie DO [address] [place] [address] [address] [place] [address] PCP - General03/12/99documented as of this encounter
--- OUTSIDE RECORDS SUMMARY | 2025-01-14 11:18 | XMS_ITS | Continuity of Care Document ---
Author Organization [facility], Kris quijano. Address [address] [place] [phone] Phone [phone] Care Team Providers Care Flame Degreaser Name Role Phone Amado Mckenzie Care Team Information Presser Hand [phone] Assessments Date Code Description Provider 07/10/2023 E87.1 [...]
--- OUTSIDE RECORDS SUMMARY | 2025-01-14 11:18 | XMS_ITS | Clinical Summary ---
Author Organization [facility] Address [address] [facility] [address] Care Team Providers Care Talent Acquisition Director Name Role Phone CabreraGarretlindsey SOUZA Unavailable + [phone] Sly Li MD Unavailable + [phone] Ronald Alvarado MD Unavailable Source Comments The following information is NOT included in Care Everywhere downloads:Psychiatric notes, ECG results, Cardiac Rehab notes, Pulmonary Function notes, data from [employer] (includes but not limited toPregnancy data,audiograms, eye exams, pre-surgical evaluation notes, well-child exam data).[facility] Allergies Active AllergyReactionsCriticalityNoted DateCommentsAmlodipine BaseOtherLow 11/06/2012 Hypertension, intolerance NttrrinebxbwmAjfuteqPnu22/20/2004 Tegretal caused itching Cqhusskox03/02/2024HydantoinsAnaphylactic Shock,SysxrJfqd84/20/2004 Other Reaction(s): loss of muscle tone, Unknown Reaction, loss of muscle tone throat swells ,hives MsxxmbtzqmiedtltmjoGlslklicdzqcYjdw99/19/0289LsjtsgxwuAjnikNei86/28/2013 Intolerance EjlwtneoOxtpRgi14/02/2012Mometasone Furo-Formoterol FumOther,MdpjzfPwh61/07/2015 Falls QxxlgcpmxuBzklgGvi42/28/2013 intolerance YdcfztyfhvzfhtZkbzEpp10/19/2024 across nose/ cheeks PxydedcewhCnysnBiwkct82/06/2024 insomnia Valproic CagnOgxzgLqkt34/20/2004 Daughter states she almost , had an [...] Tablet by mouth daily. 30 Tablet 08/25/2023ctive cephALEXin (KEFLEX) 500 MG capsule Take 1 Capsule by mouth 2 times daily for 7 days. 14 Capsule tive cephALEXin (KEFLEX) 500 MG capsule Take 1 Capsule by mouth 2 times daily for 7 days. 14 Capsule /05/2024Discontinued(Reorder (*won't e-cancel)) Active Problems ProblemNoted DateDiagnosed DateAcute post-operative pain08/24/2023cute blood loss nkzxxt4308/24/20236989Cjqrbbpncrxudq81/14/2024Embolic cerebral infarction 08/24/2023Urinary xypeosodj25/14/5334Nylmsunxbzpq41/14/2024cute radial nerve palsy08/23/2023cute renal evubqlmxafrqu77/13/9242Xycdyizptzbiyb64/13/2024 Bilateral calf pain08/23/2023lurring of visual image08/23/2023hronic pain due to vcohnv2108/23/2023ough, zqyxcxuihqd32/13/2024Edema of lower extremity 08/23/2023ltered mental status, unspecified altered mental status type 08/13/2023SDH (subdural hematoma)08/12/2023Fall08/03/2023Midline shift of brain 08/03/2023cute pain due to uxlbeo8608/03/2023Subdural sogiuqlk65/19/2024ontusion of knee07/29/2023cute upper respiratory ymwrnelua49/29/2024iastolic lglyubddrin60/29/2024djustment disorder with depressed mood06/16/2023nxiety 06/16/20238520Mitzkm45/04/2024nticoagulation management zkijkfhij50/25/2024erebral amyloid msnxjrnulk84/24/2024VT (deep venous thrombosis)05/03/2023 Overview (08/23/2023): Last Assessment & Plan: Hx of DVT on eliquis (06/2022). Previously on low dose eliquis 2.5 mg BID. Plan: Hold AC Duplex US BLE Last Assessment & Plan: Hx of DVT on eliquis (06/2022). Previously on low dose eliquis 2.5 mg BID. Plan: Hold AC Duplex US BLE Bilateral carotid artery gqmlpmem71/20/2023cquired dysmorphic cwpswmi6105/19/2022 Calcaneal spur of left foot05/19/2022ontusion of right foot05/19/2022cute renal tdqzcjr3312/15/2021isorder of liver10/06/2022Chest pain12/11/2021 Gastroesophageal reflux disease without ccerwspxtkd42/22/2022KI (acute kidney injury)12/16/2018At risk for cdfukxlepxfs74/06/2019Benign essential hypertension 12/15/2018 Overview (08/23/2023): Last Assessment [...] losartan, metoprolol tartrate - hold HCTZ Chronic yzmzpf7712/15/2018Closed fracture of shaft of ngmnxjt1808/07/2017Ankle and foot joint ywgcigqhetg58/22/2012Loose body in ankle and foot joint01/01/2012 Ankle joint ovryenpvpoi47/22/2012Difficulty ktogfje9101/01/2012Fitting and adjustment of orthopedic jvrguz1609/20/2011Complete rupture of rotator cuff 05/01/2003 Resolved Problems ProblemNoted DateDiagnosed DateResolved QpdgBekmtsculeksrxju77/24/202405/24/2024 Flfqqoxeb69 Encounters DateTypeDepartmentCare TlmeLyzrnsmsaer45/03/2025Telephone [facility] Emergency Medicine [address] [place] [address] Adalberto Baker MD 01/10/2025 11:17 PM EDT - 01/11/2025 2:12 PM ESTEmergency [facility] [address] [place] [address] Alexis Monson MD Demarco, Jennifer, MD Back symptoms/complaints (Transfer from [facility]. Exacerbation of t12 spine fracture and urinary incontinence ) Discharge Disposition: Discharge to Home01/10/2025 6:41 PM EDTHospital Encounter 01/10/20258767Qolmby04/01/2025Telephone [facility] Neurosurgery [address] [phone] Surinder Martinez MD from Last 3 Months Immunizations ImmunizationAdministration DatesNext DueHep A-Hep B (adult) (FBD=700)11/14/2006 Influenza, injectable, quadrivalent, preservative (XLL=037)12/20/2017,12/25/2016 ,12/20/2015Influenza, injectable, quadrivalent, preservative free (YSU=238) 12/15/2018Influenza, unspecified formulation (CVX=88)02/09/2021,02/04/2020, 01/04/2015,01/13/2014,12/26/2012Pneumococcal conjugate 13 valent (PCV13) (QQX=907)03/16/2014Pneumococcal polysaccharide 23 Valent (PPSV23) (CVX=33) 04/04/2019Tdap (YZR=729)02/23/2021,06/18/2017,12/05/2013,11/05/2012 Social History Tobacco UseTypesPacks/DayYears UsedDateSmoking Tobacco: FormerCigarettes Smokeless Tobacco: Never Tobacco Cessation:Counseling Given: Not Answered Comments:2014 CommentsNoSex and Gender InformationValueDate RecordedSex Assigned at BirthNot on fileLegal MdfOexgbn87/06/2022 11:02 AM EDTGender IdentityNot on file Sexual OrientationNot on file Last Filed Vital Signs Vital SignReadingTime TakenCommentsBlood Bygqshlv765/8411 10:00 AM EST Irmen721501/11/2025 10:00 AM ZCWVlpcsmuqali09.4 ??C (97.5 ??F)01/10/2025 11:32 PM EDTRespiratory Gofl179103/13/2024 10:00 AM ESTOxygen Umwfycfsuk18%01/11/2025 10:00 AM ESTInhaled Oxygen Concentration--Jggcof99 kg (187 lb 6.3 oz)10/08/2023 3:34 PM LJUImddeg483.2 cm (5' 7 )07/29/2023 3:50 PM EDTBody Mass Index29.35007/29/2023 3:50 PM EDT Plan of Treatment Health MaintenanceDue DateLast DoneCommentsShingles (RZV) Vaccine (1 of 2) 07/06/1989Annual Wellness Visit (G0438)06/10/2004Bone Wgjynhxsbhzv32/27/2005 Hepatitis A (HAV) Vaccine (2 of 3 - Hep A Twinrix risk 3-dose series)12/12/2006 11/14/2006Hepatitis B (HBV) Vaccine (2 of 3 - Hep B Twinrix 3-dose series) RSV vaccine (adult) (1 - 1-dose 75+ series)07/06/2014COVID- 19 Vaccine (3 - season)502/, 04/03/2020Influenza Vaccine (#1)512/03/2020, 02/04/2020, 12/15/2018, Additional history existsBasic Metabolic Panel603/, 08/23/2023, 08/22/2023, Additional history existsTetanus (Td or Tdap) Pxkmtle98, 06/18/2017, 12/05/2013, Additional history existsPneumococcal Vaccine(s) (50+ yrs)Fpylvstmi39/24/2020, 03/16/2014Tdap XjvpabmYdwllexcf82/15/2021, 06/18/2017, 12/05/2013, Additional history existsPap SmearDiscontinued Medical Devices ImplantedTypeAreaManufacturerDevice IdentifierShelf Expiration DateModel / Serial / LotCoil Embl 3-2mm Trnd Mciol Ea1 Mwce-18s-3/6-Sljlmoi-21 - [id number] Implanted:Qty: 1 on 08/15/2023 by Royce Casarez MD at INPATIENT UNITS Left: HuyggTsit74/01/[id number]-30V-9/1-XMTWDVU-72 / / [id number] Embl 3-2mm Trnd Mciol Ea1 Mwce-18s-3/0-Jbksepw-66 - [id number] Implanted:Qty: 1 on 08/15/2023 by Royce Casarez MD at INPATIENT UNITS Left: GpzicIscf05/01/6323XGXT-86D-5/8-KAYUESE-05 / [id number] Embl 3-2mm Trnd Mciol Ea1 Mwce-18s-3/4-Gkfhgpv-79 - [id number] Implanted:Qty: 1 on 08/15/2023 by Royce Casarez MD at INPATIENT UNITS Left: IcrpwZcna26/01/5444RXWS-45R-6/2-KSTXJZI-47 / [id number] Procedures Procedure NamePriorityDate/TimeAssociated DiagnosisCommentsXR L-SPINE AP+LATERAL 2-3 AIUBZLUFK46/02/2025 10:53 AM EST URINALYSIS WITH REFLEX CULTURE VDOVVXJMUHDJZMN37/02/2025 10:12 AM EST URINE MCTBCOAWWBL23/02/2025 10:12 AM EST URINALYSIS W/REFLEX JSMZCMQLRKQ39/02/2025 10:12 AM EST MR NEURO IMAGE RVJNSIMEZS77/02/2025 4:28 AM ESTMR NEURO IMAGE IMPORTSTAT 01/11/2025 4:27 AM ESTXRAY HEAD/SPINE IMAGE BNIQHIEOFN66/02/2025 12:41 AM EDT BASIC METABOLIC EZOSKViiamuu15/13/2024 2:59 AM EDT from Last 3 Months or Most Recently Relevant to Health Maintenance Results * XR L-SPINE AP+LATERAL 2-3 VIEWS [...] spine is poorly assessed due to underpenetration. Mcgregor catheter in place. IMPRESSION: No compression deformity [...] thoracic spine is poorly assessed due to underpenetration.Mcgregor catheter in place. IMPRESSION: No compression deformity or significant listhesis. Moderate to severe lumbar spondylosis. Authorizing ProviderResult TypeResult StatusShaina RICE DIAGNOSTIC X-RAY Final Result * (ABNORMAL) URINALYSIS WITH REFLEX CULTURE PERFORMABLE (01/11/2025 10:12 AM EST)ComponentValueRef RangeTest MethodAnalysis TimePerformed AtPathologist SignatureColorLight BtcdcbIauskrpwm37/02/2025 10:24 AM [facility] PATHOLOGY EWFAOKKCLKHayrutxeqnOdyimpLglyv33/02/2025 10:24 AM [facility] PATHOLOGY LABORATORY pH7.55.0 - 8.011 10:24 AM [facility] PATHOLOGY LABORATORYSpec Gravity1.018 <=1.74583 10:24 AM [facility] PATHOLOGY ITUBJTXAYTEzuctqp16Dpybdmtq mg/dL 01/11/2025 10:24 AM [facility] PATHOLOGY LABORATORYBloodModerate(A)Negative 01/11/2025 10:24 AM [facility] PATHOLOGY LABORATORYBilirubinNegativeNegative 01/11/2025 10:24 AM [facility] PATHOLOGY LABORATORYUrobilinogenNegativeNegative mg/dL01/11/2025 10:24 AM [facility] PATHOLOGY LABORATORYKetonesTrace(A)Negative mg/dL01/11/2025 10:24 AM [facility] PATHOLOGY LABORATORYLeuk. EsteraseNegative Uropqtrx10/02/2025 10:24 AM [facility] PATHOLOGY LABORATORYNitritePositive(A) Ovvpzlnl24/02/2025 10:24 AM [facility] PATHOLOGY LABORATORYGlucoseNegativeNegative mg/dL01/11/2025 10:24 AM [facility] PATHOLOGY LABORATORYWBC6-10(A)0 - 2 /HPF 01/11/2025 10:24 AM [facility] PATHOLOGY LABORATORYRBC>100(A)0 - 2 /HPF01/11/2025 10:24 AM [facility] PATHOLOGY LABORATORYBacteriaFew/HPF01/11/2025 10:24 AM [facility] PATHOLOGY LABORATORYMucous KjxnhmkLjknlhp48/02/2025 10:24 AM [facility] PATHOLOGY LABORATORYAmorphous PhosphatesFew/HPF01/11/2025 10:24 AM [facility] PATHOLOGY LABORATORYSpecimen (Source)Anatomical Location / LateralityCollection Method / VolumeCollection TimeReceived TimeUrineMID-STREAM URINE SPECIMEN / Unknown 01/11/2025 10:12 AM EST01/11/2025 10:16 AM [facility] PATHOLOGY LABORATORY - 01/11/2025 10:24 AM EST [...] around 50%) ?? Authorizing ProviderResult TypeResult StatusShaina MONTANEZ GENERAL LABFinal ResultPerforming OrganizationAddressCity/State/ZIP CodePhone Number [facility] PATHOLOGY LABORATORY [address] [place], [place] [phone] * URINE CULTURE (01/11/2025 10:12 AM EST)ComponentValueRef RangeTest Method Analysis TimePerformed AtPathologist SignatureUrine Jrjkzvd47,000 - 100,000 CFU/ml No significant growth; skin/urogenital contamination xyymyfz2701/12/2025 6:59 AM ESTUNM [facility] PATHOLOGY LABORATORYSpecimen (Source)Anatomical Location / LateralityCollection Method / VolumeCollection TimeReceived TimeUrineMID- STREAM URINE SPECIMEN / Xalpafs9301/11/2025 10:12 AM EST01/11/2025 10:16 AM EST Narrative Authorizing ProviderResult TypeResult StatusShaina RICE MICROBIOLOGYFinal ResultPerforming OrganizationAddressty/State/ZIP CodePhone Number [facility] PATHOLOGY LABORATORY [address] [place] [address] * MR NEURO IMAGE IMPORT(MICHELLE) (01/11/2025 4:28 AM EST)Specimen (Source)Anatomical Location / LateralityCollection Method / VolumeCollection TimeReceived Time Narrative Authorizing ProviderResult TypeResult StatusPrecious Preet RICE DIAGNOSTIC X-RAY Final Result * MR NEURO IMAGE IMPORT(MICHELLE) (01/11/2025 4:27 AM EST)Specimen (Source)Anatomical Location / LateralityCollection Method / VolumeCollection TimeReceived Time Narrative Authorizing ProviderResult TypeResult StatusPrecious Preet RICE DIAGNOSTIC X-RAY Final Result * XRAY HEAD/SPINE IMAGE IMPORT(MICHLELE) (01/11/2025 12:41 AM EDT)Specimen (Source) Anatomical Location / LateralityCollection Method / VolumeCollection Time Received Time Narrative Authorizing ProviderResult TypeResult StatusPrecious Oyem [facility] DIAGNOSTIC X-RAY Final Result * (ABNORMAL) BASIC METABOLIC PANEL (08/23/2023 2:59 AM EDT)ComponentValueRef RangeTest MethodAnalysis TimePerformed AtPathologist LmepikoghLchfzvp97969 - 109 mg/dL08/23/2023 3:40 AM [facility] PATHOLOGY FHLUSLEUIMEczqdc458489 - 145 mmol/L08/23/2023 3:40 AM [facility] PATHOLOGY LABORATORYPotassium4.13.5 - 5.0 mmol/L08/23/2023 3:40 AM [facility] PATHOLOGY LABORATORYCarbon Lmioqlo0128 - 31 mmol/L08/23/2023 3:40 AM [facility] PATHOLOGY GNBTVKFYNASsfbepgl42197 - 107 mmol/L 08/23/2023 3:40 AM [facility] PATHOLOGY LABORATORYBlood Urea Duzjovdl960 - 25 mg/dL08/23/2023 3:40 AM [facility] PATHOLOGY LABORATORYCreatinine0.59(L)0.60 - 1.20 mg/dL08/23/2023 3:40 AM [facility] PATHOLOGY LABORATORYCalcium9.08.6 - 10.3 mg/dL08/23/2023 3:40 AM [facility] PATHOLOGY LABORATORYAnion Old2637 - 20 08/23/2023 3:40 AM [facility] PATHOLOGY LABORATORYEstimated GFR (CKD-EPI)89>=60 mL/min/1.30jxp9808/23/2023 3:40 AM [facility] PATHOLOGY LABORATORYComment: 2020 CKD EPI Equation using [...] Med 1 Vol. 385 Issue 19 Pages 5905-5771 Specimen (Source)Anatomical Location / LateralityCollection Method / Volume Collection TimeReceived TimeBloodBLOOD SPECIMEN / UnknownVenipuncture / Unknown 08/23/2023 2:59 AM EDT08/23/2023 3:13 AM EDT Narrative Authorizing ProviderResult TypeResult StatusFaPrinceton Baptist Medical CenterThompson MD98 GENERAL LAB Final ResultPerforming OrganizationAddressCity/State/[facility] CodePhone Number [facility] PATHOLOGY LABORATORY [address] [place] [phone] from Last 3 Months or Most Recently Relevant to Health Maintenance Insurance * Guarantor: Demetrius Marcelino TypeRelation to PatientDate of BirthPhoneBilling AddressPersonal/GjobezMjrt27/27/1941 [facility] [address] [place] [phone] * Guarantor: Demetrius Marcelino TypeRelation to PatientDate of BirthPhoneBilling AddressPersonal/JcawfjGigg48/27/1941 [facility] [address] [place] [phone] * Guarantor: Demetrius Marcelino TypeRelation to PatientDate of BirthPhoneBilling AddressPersonal/VmpzluVmjl67/27/1941 [facility] [address] [place] [phone] Advance Directives * Full Code (Latest Code [...] Teams Team MemberRelationshipSpecialtyStart DateEnd Date Kymberly Cabrera APRN-CNP [address] [place] [address] APNUrology09/15/23 Sly Li MD [address] [place] [address] PhysicianNeurosurgery11/17/23 Ronald Alvarado MD [address] [place] [address] PhysicianNeurology08/16/24
--- OUTSIDE RECORDS SUMMARY | 2025-01-14 11:18 | XMS_ITS | Encounter Summary ---
Author Organization [facility] Address [address] [facility] [place] [address] Care Team Providers Care Obiee Obia Solution Architect Name Role Phone Kymberly Cabrera Unavailable + [phone] Sly Li MD Unavailable + [phone] Ronald Alvarado MD Unavailable Encounter Details DateTypeDepartmentCare Team (Latest Contact Info)Dzstnlpfxlx35/03/2025Telephone [facility] Emergency Medicine [address] [place], [place] [phone] Adalberto Baker MD [address] [place] [address] [place], [place] [phone] Social History Tobacco UseTypesPacks/DayYears UsedDateSmoking Tobacco: FormerCigarettes Smokeless Tobacco: Never Comments:2014 CommentsNoSex and Gender InformationValueDate RecordedSex Assigned at BirthNot on fileLegal HelPeidbt41/06/2022 11:02 AM EDTGender IdentityNot on file Sexual OrientationNot on filedocumented as of this encounter Functional Status * Hearing impairment?AnswerDate of VpgrmuvdkpBwigabQo06/20/2024 3:08 PM EDT Kymberly Cabrera APRN-CNP * Visual impairment?AnswerDate of AzxyyobgnyOymnohPp96/20/2024 3:08 PM EDT Kymberly Cabrera APRN-CNP * Gait/Transfer impairment?AnswerDate of YbtcelbvsnYnnbypKo08/20/2024 3:08 PM Kymberly Dixon APRN-CNP * ADL impairment?AnswerDate of WknnxmgqnwGovpibZr56/20/2024 3:08 PM Kymberly Dixon APRN-CNP * Difficulty with errands?AnswerDate of CorrklhlfaFxqqiyYf33/20/2024 3:08 PM EDT Kymberly Cabrera APRN-CNP documented as of this encounter Mental Status * Cognitive difficulty?AnswerEntry YonwRvnmsaCd51/20/2024 3:08 PM Kymberly Dixon APRN-CNP documented in this encounter Miscellaneous Notes * Telephone Encounter - Adalberto Baker MD - 01/12/2025 4:38 PM EST Call to ED requesting electric Rx for cephalexin. Did not receive at recent ED visit. Pt with some dark urine, otherwise doing well. Mcgregor in place with plan for urology follow up tomorrow. Sent to pharmacy of choice documented in this encounter Plan of Treatment Not on file documented as of this encounter Visit Diagnoses Not on filedocumented in this encounter Care Teams Team MemberRelationshipSpecialtyStart DateEnd Date Kymberly Cabrera APRN-CNP [address] [place] [address] APNUrology09/15/23 Sly Li MD [address] [place], [place] [phone] PhysicianNeurosurgery11/17/23 Ronald Alvarado MD [address] [place] [address] PhysicianNeurology08/16/24documented as of this encounter
--- OUTSIDE RECORDS SUMMARY | 2025-01-14 11:18 | XMS_ITS | Clinical Summary ---
Author Organization [employer] [facility] tem Address [facility] [address] [place] [address] Care Team Providers Care Airplane Rigger Name Role Phone Unavailable Primary Care Provider Unavailabl e Social History Tobacco UseTypesPacks/DayYears UsedDateSmoking Tobacco: Never AssessedChildcare AnswerDate UftjijndKantfyxdjQalagkz09/13/2019EmploymentAnswerDate Recorded YoqyknclupFqwrjrl21/13/2019Purpose - LifeAnswerDate RecordedPurpose and direction in dxjdBkrwofn80/11/2021CommentsUnknownSex and Gender InformationValueDate RecordedSex Assigned at BirthNot on fileLegal SexFemale 08/20/2017 2:04 PM EDTGender IdentityNot on fileSexual OrientationNot on file Plan of Treatment Health MaintenanceDue DateLast DoneCommentsDepression Qoffcjcrv07/27/1952Tobacco Rycadanjx43/27/1952Zoster (Shingles) Vaccine (1 of 2)07/06/1989Fall Risk Fdkkqbvdy52/27/2005RSV ( or age 60+ yrs) (1 - 1-dose 75+ series) 07/06/2014COVID-19 Vaccine (3 - season)502/, 04/03/2020 Influenza Qqtcgae37/03/2020, 02/04/2020, 12/15/2018, Additional history existsDTaP,Tdap and Td Vaccines (4 - Td or Tdap), 06/18/2017, 12/05/2013 Medical Devices Not on file Insurance
--- OUTSIDE RECORDS SUMMARY | 2025-01-14 11:18 | XMS_ITS | Encounter Summary ---
Author Organization [facility] Address [address] [place] [address] Care Team Providers Care Material Coordinator Name Role Phone Kymberly Cabrera Unavailable + [phone] Sly Li MD Unavailable [phone] Ronald Alvarado MD Unavailable Encounter Details DateTypeDepartmentCare Team (Latest Contact Info)Ordjebwcnhf82/01/2025Telephone [facility] Neurosurgery [address] [place] [address] [phone] Surinder Martinez MD [address] [place], [place] [phone] Social History Tobacco UseTypesPacks/DayYears UsedDateSmoking Tobacco: FormerCigarettes Smokeless Tobacco: Never Comments:2014 CommentsNoSex and Gender InformationValueDate RecordedSex Assigned at BirthNot on fileLegal PhjRvvtwp55/06/2022 11:02 AM EDTGender IdentityNot on file Sexual OrientationNot on filedocumented as of this encounter Functional Status * Hearing impairment?AnswerDate of VfdopovqbtAcmvkeLy76/20/2024 3:08 PM EDT Kymberly Cabrera APRN-CNP * Visual impairment?AnswerDate of LlpmclqywgSnxbkbRo73/20/2024 3:08 PM EDT Kymberly Cabrera APRN-CNP * Gait/Transfer impairment?AnswerDate of CmzaftkkazHohxvnRp08/20/2024 3:08 PM Kymberly Dixon APRN-CNP * ADL impairment?AnswerDate of FtjaohcmxcEnictbRb28/20/2024 3:08 PM Kymberly Dixon APRN-CNP * Difficulty with errands?AnswerDate of ZwpqsoajhzPitfswKr86/20/2024 3:08 PM EDT Kymberly Cabrera APRN-CNP documented as of this encounter Mental Status * Cognitive difficulty?AnswerEntry YtxpWbkvvtGt70/20/2024 3:08 PM EDKymberly Bonilla APRN-CNP documented in this encounter Miscellaneous Notes * Telephone Encounter - Surinder Martinez MD - 01/10/2025 8:10 PM EDT Discussed Ms. Marcelino's care with the treating provider at [facility] Dr. Wilman Watson on 01/10/2025t 20:10. Dr. Watson described Ms. Marcelino as in 84-year-old female with a past medical history of CAD, HF, andchronic T12 compression #, who is actively followed by a pain specialist and receives spinal injections for chronic LBP. He noted that she developed urinary overflow incontinence starting approximately 6 days ago directly after she underwent a spinal injection. Currently, she denies any saddle anesthesia or fecal incontinence. She also describes no weakness or decreased sensation in her bilateral lower extremities. The physical examination performed by the [facility] providers did not note any lower extremity weakness, numbness, with essentially normal rectal tone, but did note a PVR of 800 mL for which they placed a Mcgregor catheter. 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 In terms of her laboratory investigations, she did not have any significant elevated white blood cell count or evidence on her urinalysis of findings consistent with urinary tract infection. I reviewed her MR T and MR L-spine that were performed at [facility] which demonstrate thoracic and lumbar spondylosis as well as a T12 compression fracture. Her MR L-spine demonstrates a grade 1 L4-L5 spondylolisthesis and there is multilevel canal and foraminal stenosis, worst at the L3-L4 level. However, the stenosis does not appear to be severe enough to suggest sacral nerve root dysfunction that would lead to urinary retention from cauda equina compression. Furthermore, it is unlikely that her urinary retention is secondary to cauda equina compression given she lacks any other symptomsof the syndrome including saddle anesthesia, decreased rectal tone, or any weakness or numbness in her lower extremities. I did suggest that they obtain standing L-spine x-rays in order to evaluate her alignment in the upright position and ensure that the stenosis, particularly secondary to her T12 fracture is not underappreciated on her supine imaging. Additionally, I offered to provide her with a full consultation should she wish, which would be facilitated by an ED to ED transfer from [facility] to [facility]. Dr. Watson advised that he would discuss with Ms. Marcelino how she wished to proceed, and would contact the [facility] transfer center to finalize the plan. Surinder Martinez MD PA Department of Neurological Surgery [id number] [place] [address] [place], [address] documented in this encounter Plan of Treatment Not on file documented as of this encounter Visit Diagnoses Not on filedocumented in this encounter Care Teams Team MemberRelationshipSpecialtyStart DateEnd Date Kymberly Cabrera, INSURANCE CLERK-LOGISTICS PROGRAM MANAGER [address] [place] [address] APNUrology09/15/23 Sly Li MD [address] [place] [address] PhysicianNeurosurgery11/17/23 Ronald Alvarado MD [address] [place] [address] PhysicianNeurology08/16/24documented as of this encounter
--- OUTSIDE RECORDS SUMMARY | 2025-01-14 11:18 | XMS_ITS | Encounter Summary ---
Author Organization [facility] Address [address] [facility] [address] Care Team Providers Care Production Line Assembler Name Role Phone Kymberly Cabrera Unavailable + [phone] Sly Li MD Unavailable + [phone] Ronald Alvarado MD Unavailable Encounter Details DateTypeDepartmentCare Team (Latest Contact Info)Zijeahmiglg97/01/2025Travel Social History Tobacco UseTypesPacks/DayYears UsedDateSmoking Tobacco: FormerCigarettes Smokeless Tobacco: Never Comments:2014 CommentsNoSex and Gender InformationValueDate RecordedSex Assigned at BirthNot on fileLegal LpjXdzgbg71/06/2022 11:02 AM EDTGender IdentityNot on file Sexual OrientationNot on filedocumented as of this encounter Functional Status * Hearing impairment?AnswerDate of AuwdawsmluMrqhcrZr67/20/2024 3:08 PM EDT Kymberly Cabrera APRN-CNP * Visual impairment?AnswerDate of PdifpcjsnaJodretCa89/20/2024 3:08 PM EDT Kymberly Cabrera APRN-CNP * Gait/Transfer impairment?AnswerDate of WyzrflmrroSkezqbFo41/20/2024 3:08 PM Kymberly Dixon APRN-CNP * ADL impairment?AnswerDate of UmjvisznrsIpxwbiFj16/20/2024 3:08 PM Kymberly Dixon APRN-CNP * Difficulty with errands?AnswerDate of ZexvcakpdyLmeimfSa71/20/2024 3:08 PM EDT Kymberly Cabrera APRN-CNP documented as of this encounter Mental Status * Cognitive difficulty?AnswerEntry CabpOgmbezIy46/20/2024 3:08 PM Kymberly Dixon APRN-CNP documented in this encounter Plan of Treatment Not on file documented as of this encounter Visit Diagnoses Not on filedocumented in this encounter Care Teams Team MemberRelationshipSpecialtyStart DateEnd Date Kymberly Cabrera APRN-CNP [address] [place] [address] APNUrology09/15/23 Sly Li MD [address] [place] [address] PhysicianNeurosurgery11/17/23 Ronald Alvarado MD [address] [place] [address] PhysicianNeurology08/16/24documented as of this encounter
--- OUTSIDE RECORDS SUMMARY | 2025-01-14 11:18 | XMS_ITS | Clinical Summary ---
Author Organization [facility] Address [address] [place] [address] Care Team Providers Care It Architecture Analyst Name Role Phone Santosh Childress DO Unavailable [phone] Amado Mckenzie MD Primary Care Provider [phone] Allergies Active AllergyReactionsCriticalityNoted DateCommentsAmlodipineUnknownLow 11/06/2012 intolterance VybzwjyksxxxtTzorapz04/20/2004 Tegretal caused itching HydantoinsAnaphylaxis,VpjmsomBfrp52/20/2004 throat swells ,hives HydrochlorothiazideUnknown,SrkmhMfkm27/19/2024 Other Reaction(s): Hyponatremia DtlyxqsjmHpaxnehRni09/28/2013 Other Reaction(s): Other (See Comments) Intolerance Mometasone Furo-Formoterol FumGI dnykurfsldu93/07/2015 Falls Mometasone YrspjziWpzhb59/12/1003ArioexbcuiJfzeruyUlh21/28/2013 intolerance ZfnvgwfmsnvyskBztkDkn99/19/2024 Other Reaction(s): rash across nose/ cheeks across nose/ cheeks AaqsemclpqVvvjhFsgz58/06/2024 insomnia Valproic PitvIkvsrvnUjp65/20/2004 Fine motor tremors Other reaction(s): AOF tremors Wound Dressing TjmfxhsuRdbkNna94/02/2012 Medications MedicationSigDispense QuantityRefillsLast FilledStart DateEnd DateStatus magnesium [...] 1 TABLET BY MOUTH EVERY MORNING for gdbthsnobwfz00/04/2024ctive pravastatin (Pravachol) 40 MG tablet Take 40 mg by mouth at wtmhwlq4205/07/2023ctive triamterene-hydrochlorothiazide (Maxzide-25) 37.5-25 MG tablet Take 1 [...] mouth DailyActive Active Problems ProblemNoted DateDiagnosed DateSubarachnoid foadtwqqab36/13/2024hronic venous cmdgcutbsqtr24/13/2024Left leg pain02/22/20242142Sifsbarpdbe67/13/2024Subdural hematoma caused by lzmpidttyw23/13/2024Surgical wound, non pspxpog6602/22/2024 Numbness and tingling of both legs02/22/2024Lymphedema of both lower extremities 02/22/20243575Abglewkzkoyb31/13/2024cute blood loss bjzbet0108/24/2023olypharmacy 08/24/2023Embolic cerebral aohcxzgygx32/14/4120Vfhqzfhzvwxyev54/13/2024Subdural nidwazot88/19/2024Nonspecific abnormal electroencephalogram (EEG)06/17/2023 History of DVT (deep vein thrombosis)05/06/20239855Offisnlmfk08/25/2024erebral amyloid yahabcosfo56/24/2024oronary artery disease involving [place] coronary artery of [place] heart without angina ffuayqfh63/22/2024 Overview (05/29/2023): Last Assessment & Plan: Assessment: hx of CAD c/b NSTEMI 11/2021 with LETICIA to RCA. Follows with cardiology, per outpatient note patient was recommended to be on indefinite clopidogrel. 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 Per patient last seizure was years ago . Does not follow with neurology as outpatient. Review of med list shows that she is not on any AED as outpatient (has allergy to multiple AED). Plan - stop Keppra 750 BID Uncomplicated sgqzle6705/03/2023 Overview (05/29/2023): Last Assessment & Plan: Assessment: hx of asthma, no PFT in EMR. No rescue inhaler per recent dispense report. Hx of montelukast. Not in exacerbation on arrival Plan - montelukast Non-pressure chronic ulcer of left heel and midfoot limited to breakdown of skin 03/20/2023Onychomycosis due to cmeyvqfcklky68/09/2024ain in limb03/20/2023 Peripheral venous wzfdvuydrnmvk59/09/2024Verruca qwfajwenh90/09/2024cquired dysmorphic rqgnwta9405/19/2022Tendonitis, Achilles, left05/19/2022astroesophageal reflux disease without aielmfxmfex96/22/2022Open wound of left knee12/15/2018 Heel pain, axonsqv4110/15/2014Pain in left foot10/15/2014Heel spur10/15/2014nkle joint bkxhrhzoryt57/22/2012Derangement of ankle or foot01/01/2012nkle and foot joint rnmiptehmte71/22/2012 Encounters DateTypeDepartmentCare AxenZqjabpiirbh93/12/2025 1:15 PM EDTProcedure Visit [facility] [address] [place] [address] Santosh Jhaveri DPM Idiopathic progressive polyneuropathy (Primary Dx); Onychomycosis; Corns and cjnqlmpqiyw14/12/2025amboo flowsheet [facility] [address] [place] [address] Santosh Jhaveri DPM 11/21/2024Travelfrom Last 3 Months Immunizations ImmunizationAdministration DatesNext DuePneumococcal Polysaccharide PPSV23 04/04/2019Tdap104/26/2020,12/05/2013Tetanus toxoid, sznboxeh72/27/1999 Social History Tobacco UseTypesPacks/DayYears UsedDateSmoking Tobacco: FormerCigarettesQuit: 1983Smokeless Tobacco: Never Tobacco Cessation:Counseling Given: Not Answered Alcohol UseStandard Drinks/WeekCommentsNever0 (1 standard drink = 0.6 oz pure alcohol)CommentsUnknownSex and Gender InformationValueDate RecordedSex Assigned at BirthNot on fileLegal UwvJvxgok24/15/2023 6:40 PM EDTGender Identity Not on fileSexual OrientationNot on file Last Filed Vital Signs Vital SignReadingTime TakenCommentsBlood Dsevbonx785/9109 1:20 PM EDT Nhlbi205911/21/2024 1:20 PM EDTTemperature--Respiratory Ianr772505/22/2024 1:07 PM EDTOxygen Ckypqzptxe69%04/21/2024 1:14 PM ESTInhaled Oxygen Concentration-- Btocpz76.2 kg (168 lb)05/22/2024 1:07 PM IXKZpafio438.6 cm (5' 4 )05/22/2024 1:07 PM EDTBody Mass Index28.8405/22/2024 1:07 PM EDT Plan of Treatment DateTypeDepartmentCare Team (Latest Contact Info)Abrzgvbcrgd96/17/2025 1:30 PM ESTProcedure Visit [facility] [address] [place] [phone] Santosh Jhaveri, DPM [address] [place] [address] Health MaintenanceDue DateLast DoneCommentsPneumococcal Vaccine: 65+ Years (2 of 2 - PCV)/COVID-19 Vaccine (3 - 2024- season)2024 05/04/2020, 04/03/2020Influenza Vaccine (#1)/03/2020, 02/04/2020, 12/15/2018, Additional history exists Insurance [address] [place] [phone] [place] [phone] Care Teams Team MemberRelationshipSpecialtyStart DateEnd Date Amado Mckenzie MD [address] [place] [address] [address] [place] [address] PCP - GeneralFamily Medicine08/21/24 Santosh Childress DO Referring PhysicianNeurolog04/21/24
--- OUTSIDE RECORDS SUMMARY | 2025-01-14 11:18 | XMS_ITS | Clinical Summary ---
Author Organization [facility] Address [address] [place] [address] Phone Care Team Providers Care Orchestra Teacher Name Role Phone Amado Mckenzie DO Primary Care Provider [phone] Allergies Active AllergyReactionsCriticalityNoted DateCommentsCarbamazepineUnknown 12/29/20221413IiuzfeynjJevljvi50/20/2475WaiixcavjnDfdcfpd59/20/2023PhenytoinUnknown 12/29/2022Valproic WianAmdqoeg33/20/2023 Medications MedicationSigDispense QuantityRefillsLast FilledStart DateEnd DateStatus metoprolol tartrate (Lopressor) 25 mg tablet Take 0.5 tablets (12.5 mg) by mouth 2 times a day.Active omega 2-clq-otx-fish oil (Fish OiL) 300-1,000 mg capsule,delayed release(DR/EC) [...] (5 mg) by mouth once daily.Active therapeutic wwgqrlrnhrdm-bayd-evzzmfzc (Theragran-M) tablet Take 1 tablet by mouth once daily.Active Active Problems ProblemNoted DateDiagnosed DateBenign essential kqjcllzkidlg80/20/2023ilateral carotid artery qlxdqynb45/20/1248Vtiuotukkvtbsu65/20/2023ost PTCA1 Single vessel coronary lhyqtpv9712/29/2022 Encounters DateTypeDepartmentCare XlsnOwjksyekqpq87/01/2025Orders Only [facility] [address] [place] [address] Avery Garcia MD from Last 3 Months Social History Tobacco UseTypesPacks/DayYears UsedDateSmoking Tobacco: Never Assessed CommentsUnknownSex and Gender InformationValueDate RecordedSex Assigned at Not on fileLegal ErbUcyqkj32/25/2022 11:47 AM ESTGender IdentityNot on file Sexual OrientationNot on file Last Filed Vital Signs Vital SignReadingTime TakenCommentsBlood Pawzwoqf697/8806 11:59 AM EDT Uguoj0155/14/2023 11:59 AM EDTTemperature--Respiratory Rate--Oxygen Saturation-- Inhaled Oxygen Concentration--Kgxfoh96.3 kg (188 lb)08/23/2022 11:59 AM EDT Tzgdzd835.2 cm (5' 7 )08/23/2022 11:59 AM EDTBody Mass Index29.4406 11:59 AM EDT Plan of Treatment Health MaintenanceDue DateLast DoneCommentsCreatinine Level1939Lipid Panel 1939Potassium Level1939DTaP/Tdap/Td Vaccines (1 - Tdap)07/06/1961 Zoster Vaccines (1 of 2)07/06/1989Bone Density Scan07/06/2004RSV High Risk: (Elderly (60+) or Population) (1 - 1-dose 75+ series)07/06/2014Medicare Annual Wellness Visit (AWV), 05/30/2016Pneumococcal Vaccine (2 of 2 - PCV)/6030Jcfzdycimfhuck43/15/202309/Influenza Vaccine (#1)2024OVID-19 Vaccine ( season)2024HIB VaccinesAged OutNo longer eligible based on [...] to complete this topic Procedures Procedure NamePriorityDate/TimeAssociated DiagnosisCommentsNON-[facility] HIE CAPILLARY GLUCOSE JRSDlrqnri88/01/2025 8:09 PM EDT MR THORACIC SPINE WO KVPDIMGK01/01/2025 4:38 PM EDT MR LUMBAR SPINE WO FYAYEIXL53/01/2025 4:38 PM EDT NON-[facility] H[facility] CAPILLARY GLUCOSE QMEGidwhci82/01/2025 2:06 PM EDT XR CHEST 1 VIEW01/10/2025 10:[address] ABDOMEN PELVIS W IV VDGZAEBK94/01/2025 10:16 AM EDT NON-[facility] HIE OASYstibyl53/01/2025 9:53 AM EDT NON-[facility] HIE TROPONIN 0 HR.Sqxynby0101/10/2025 9:53 AM EDT NON-[facility] HIE RANZTisjacg66/01/2025 9:53 AM EDT NON-[facility] HIE FQEMmxvyrq43/01/2025 9:53 AM EDT NON-[facility] HIE EXTRA XPBRMcczmvm49/01/2025 9:53 AM EDT NON-[facility] HIE CBC W/ AUTO LDXRHgyffhp96/01/2025 9:53 AM EDT WJZGAJOELPYPBF56/15/2022 from Last 3 Months or Most Recently Relevant to Health Maintenance Results * [facility] H[facility] Capillary Glucose POC (01/10/2025 8:09 PM EDT) Only the most recent of2 resultswithin the time period is included. ComponentValueRef RangeTest MethodAnalysis TimePerformed AtPathologist Signature NON-[facility] HIE Glucose Ybt9802 - 99 mg/dLFISHER R ADAMS COWLEY SHOCK TRAUMA CENTERComment:Notified RN/MDSpecimen (Source)Anatomical Location / LateralityCollection Method / Volume Collection TimeReceived TimeMEMORIAL [facility] Lab- Blood01/10/2025 8:09 PM EDT Narrative Authorizing ProviderResult TypeResult StatusSamutim Garcia MDLAB BLOOD ORDERABLESFinal ResultPerforming OrganizationAddressCity/State/ZIP CodePhone Number [facility] [address] [place] [address], * MR thoracic spine wo IV contrast [...] Radha MDIMG MRI PROCEDURES Final Result * MR lumbar [...] Radha MDIMG MRI PROCEDURES Final Result * XR chest 1 view (01/10/2025 10:16 [...] ??DP ? Technologist: ??JLW Authorizing ProviderResult TypeResult StatusSamuel Radha MDIMG XR PROCEDURES Final Result * CT abdomen [...] Technologist: ??JLW Authorizing ProviderResult TypeResult StatusAvery SEWELLG CT PROCEDURES Final Result * [facility] EXTRA BLUE (01/10/2025 9:53 AM EDT)ComponentValueRef RangeTest MethodAnalysis TimePerformed AtPathologist SignatureNON-[facility] HIE TUBE COLLECTED PLASMAYesFISHER HOLY CROSS HOSPITALpecimen (Source)Anatomical Location / LateralityCollection Method / VolumeCollection TimeReceived TimeMEMORIAL [facility] Lab- Blood01/10/2025 9:53 AM EDT Narrative Authorizing ProviderResult TypeResult Girish BATES BLOOD ORDERABLESFinal ResultPerforming OrganizationAddressCity/State/ZIP CodePhone Number [facility] [address] [place] [address], [place] * (ABNORMAL) NON-[facility] HIE CBC w/ Auto Diff (01/10/2025 9:53 AM EDT)ComponentValue Ref RangeTest MethodAnalysis TimePerformed AtPathologist SignatureINDIANA UNIVERSITY HEALTH JAY HOSPITALE WBC4.74.0 - 11.0 E9/[facility] HIE RBC3.9(L)4.3 - 5.9 E12/[facility] HIE HGB12.312.0 - 16.0 gm/dLWESTERN RESERVE HOSPITALE HCT35.934.0 - 46.0 %[facility] HIE RDW13.410.9 - 14.2 %[facility] HIE MCH31.2 27.0 - 34.0 [facility] HIE MCHC34.231.4 - 36.0 gm/dL [facility] HIE MCV91.380.0 - 100.0 [facility] HIE MPV7.66.4 - 10.8 [facility] HIE ECRETJLL463.0150.0 - 500.0 E9/[facility]ALE NEUTRO AUTO65.136.0 - 75.0 %[facility] HIE LYMPH AUTO 21.014.0 - 50.0 %[facility] HIE MONO AUTO10.44.0 - 14.0 %[facility] EOS AUTO2.90.0 - 8.0 %[facility] HIE BASOPHIL AUTO0.60.0 - 2.0 %[facility] NEUTRO ABSOLUTE3.12.0 - 7.5 E9/[facility] HIE LYMPH ABSOLUTE1.01.0 - 4.0 E9/[facility] HIE MONO ABSOLUTE0.50.2 - 1.0 E9/[facility] HIE EOS ABSOLUTE0.10.0 - 0.5 /[facility] HIE BASOPHIL ABSOLUTE0.00.0 - 0.2 E9/[facility]PITALpecimen (Source) Anatomical Location / LateralityCollection Method / VolumeCollection Time Received TimeMEMORIAL [facility] Lab- Blood01/10/2025 9:53 AM EDT Narrative Authorizing ProviderResult TypeResult StatusAvery Garcia MDLAB BLOOD ORDERABLESFinal ResultPerforming OrganizationAddressCity/State/[place] [address], * (ABNORMAL) NON-[facility] HIE Troponin 0 Hr. (01/10/2025 9:53 AM EDT)ComponentValueRef RangeTest MethodAnalysis TimePerformed AtPathologist SignatureNON-[facility] HIE TROPONIN7.00(L)10.10 - 27.10 pg/mLGLENBEIGH HOSPITALComment:The 95% CI (Confidence Interval) PPV (Positive Predictive Value) for myocardial infarction in females is 38 pg/mL, in males 51 pg/mL. The results should be used in conjunction with clinical conditions of myocardial infarction.(Access High Sensitivity Troponin I Instructions For Use, Raegan Fisher, October 2017)Specimen (Source)Anatomical Location / LateralityCollection Method / VolumeCollection TimeReceived TimeMEMORIAL HOS[facility] Lab- Blood01/10/2025 9:53 AM EDT Narrative Authorizing ProviderResult TypeResult StatusAvery Garcia MDLAB BLOOD ORDERABLESFinal ResultPerforming OrganizationAddressCity/State/[place] [address], [place] * [facility] HIE eGFR (01/10/2025 9:53 AM EDT)ComponentValueRef RangeTest Method Analysis TimePerformed AtPathologist SignatureNON-[facility] HIE EGFR72>=59 mL/min/1.73 p3AYSWCJPARMA COMMUNITY GENERAL HOSPITALpecimen (Source)Anatomical Location / LateralityCollection Method / VolumeCollection TimeReceived TimeMEMORIAL [facility] Lab- Blood01/10/2025 9:53 AM EDT Narrative Authorizing ProviderResult TypeResult StatusAvery Garcia MDLAB BLOOD ORDERABLESFinal ResultPerforming OrganizationAddressCity/State/ZIP CodePhone Number [place] [phone], [place] * (ABNORMAL) NON-[facility] HIE CMP (01/10/2025 9:53 AM EDT)ComponentValueRef RangeTest MethodAnalysis TimePerformed AtPathologist SignatureNON-[facility] HIE GLUCOSE UQD4616 - 199 mg/dLWESTERN RESERVE HOSPITALE BUN22(H)5 - 21 mg/dLWESTERN RESERVE HOSPITALE CREATININE0.80.5 - 1.3 mg/dLWESTERN RESERVE HOSPITALE CALCIUM LVL9.28.9 - 11.1 mg/dLWESTERN RESERVE HOSPITALE SODIUM ECT185873 - 145 mmol/LFPOMERENE HOSPITALE POTASSIUM LVL4.33.5 - 5.3 mmol/LFSELECT MEDICAL SPECIALTY HOSPITAL [facility] S[facility]AST OHIOE VURBEBGM562824 - 111 mmol/LFMERCY HEALTH [facility]INGS [facility]ILLS [facility] HIE EP07391 - 31 mmol/LFSELECT MEDICAL SPECIALTY HOSPITAL [facility] OHIOE ALK VFZE9203 - 98 Int._Unit/L [facility] BILI TOTAL0.40.0 - 1.1 mg/dLCLEVELAND CLINIC [facility] ALBUMIN LVL4.03.3 - 5.0 gm/dLCLEVELAND CLINIC [facility] TOTAL PROTEIN6.96.0 - 7.8 gm/dLGLENBEIGH HOSPITAL NON[facility] HIE DRD607 - 46 Int._Unit/LFMERCY HEALTH [facility] HIE CLP230 - 43 Int._Unit/LFTRIHEALTH BUN/CREAT RATIO28(H)10 - 20 No UnitsWESTERN RESERVE HOSPITALE AGAP86 - 16 mEq/LFSELECT MEDICAL SPECIALTY HOS[facility]ITAL [facility] OHIOE GLOBULIN2.91.4 - 4.0 gm/dLGLENBEIGH HOSPITAL NON-[facility]ERE A/G RATIO1.41.1 - 2.2FDUNLAP MEMORIAL HOSPITALpecimen (Source) Anatomical Location / LateralityCollection Method / VolumeCollection Time Received TimeMEMORIAL [facility] Lab- Blood01/10/2025 9:53 AM EDT Narrative Authorizing ProviderResult TypeResult StatusSamutim BATES BLOOD ORDERABLESFinal ResultPerforming OrganizationAddressCity/State/ZIP CodePhone Number [facility] [address] [place] [address], [place] * (ABNORMAL) [facility] HIE BNP (01/10/2025 9:53 AM EDT)ComponentValueRef RangeTest MethodAnalysis TimePerformed AtPathologist SignatureNON-[facility] HIE QEY109(H)5 - 80 pg/mLFISHER HOLY CROSS HOSPITALpecimen (Source)Anatomical Location / LateralityCollection Method / VolumeCollection TimeReceived TimeMEMORIAL [facility] Lab- Blood01/10/2025 9:53 AM EDT Narrative Authorizing ProviderResult TypeResult StatusSaroger Garcia MDLAB BLOOD ORDERABLESFinal ResultPerforming OrganizationAddressCity/State/ZIP CodePhone Number [facility] [address] [place] [address], [place] * ECHOCARDIOGRAM (11/24/2021) Narrative 11/24/2021 Ordered by an unspecified provider. Authorizing ProviderResult TypeResult StatusOnbase ConversionCV ECHO PROCEDURES Final Result from Last 3 Months or Most Recently Relevant to Health Maintenance Insurance Care Teams Team MemberRelationshipSpecialtyStart DateEnd Date Amado Mckenzie DO [address] [facility] [address] [place] [address] PCP - General03/12/99
--- OUTSIDE RECORDS SUMMARY | 2025-01-14 11:41 | XMS_ITS | CCD ---
Author Organization [facility] Care Team Providers Care Whitewasher Name Role Phone AGUILAR STEVENS Unavailable Unavailable MAGALY, HARDEEP M Unavailable Unavailable Andres Ud Din Unavailable Unavailable Andres Ud Din Unavailable Unavailable GUDINO, CHRISTOPHER Unavailable Unavailable GUDINO, CHRISTOPHER Unavailable Unavailable MAGALY, HARDEEP M Unavailable Unavailable MAGALY, HARDEEP M Unavailable Unavailable MAGALY, HARDEEP M Unavailable Unavailable GUDINO, CHRISTOPHER Unavailable Unavailable GUDINO, CHRISTOPHER Unavailable Unavailable GUDINO, CHRISTOPHER Unavailable Unavailable Magaly, Hardeep M Primary Care Provider ELIAS CELESTIN Referring Unavailable EDMUNDO MENDEZ Consulting Unavailab le MAGALY, HARDEEP M Primary Care Unavailable LAURIE LEMUS Admitting Unavailable LAURIE LEMUS Attending Unavailable JUNG MARKHAM Consulting Unavailable BETSY DUMONT Consulting Unavailable Magaly, Hardeep M. Primary Care Provider Unavailab le Magaly, Hardeep M. Attending Provider Unavailable Mercedes Man Attending Provider Unavailable Brendan Ni Attending Provider Unavailable Royce Douglas Unavailable Magaly, Hardeep Unavailable Tonia Mcdonough Unavailable Magaly, DO Hardeep M. Primary Care Provider MD Royce Douglas Attending Provider MAGALY, HARDEEP M Primary Care Physician Chastity Lopez Unavailable Unavailable Kourtney Lay Unavailable Unavailable Coleen Meza Unavailable Unavailable Magaly, Hardeep M Unavailable Unavailable Unavailable Hardeep Mckenzie DO Primary Care Provider Unavailable Unavailable Unavailable Primary Care Provider Unavailabl e Magaly, DO Hardeep Soto. Primary Care Provider Magaly, DO Hardeep Soto. Attending Provider [phone] PROVIDER, UNKNOWN Attending Unavailable PROVIDER, UNKNOWN Admitting Unavailable Magaly Hardeep ZHANG Primary Care Provider EMIGDIO ., DR ROLAN Harris Admitting Unavailable BEAL [...] MAGALY, DR HARDEEP Soto Primary Care Unavailable MAGALY, DR HARDEEP [...] Provider Magaly, DO Hardeep Soto. Attending Provider [phone] Unavailable Unavailable Patrick Howe Unavailable Magaly, DO Hardeep Solano Primary Care Provider MD Patrick Howe Attending Provider [phone] MD Royce Douglas Attending Provider [phone] Trudy, Dr. Angélica Enriquez Attending Candi vailable Trudy, Dr. Angélica Enriquez Referring Candi vailable Magaly, Dr. Hardeep Gracia Primary Care Unavaila ble Yates, Dr. Angélica Enriquez Attending Candi vailable Yates, Dr. Angélica Enriquez Referring Canid vailable Magaly, Dr. Hardeep Gracia Primary Care [...] Provider Magaly, DO Hardeep Solano Attending Provider YO Ponce Emergency Provider Magaly, DO Hardeep Solano Primary Care Provider Rosario, FLOW MACHINE OPERATORLadan Padilla N Emergency Provider [phone] Magaly Hardeep ZHANG Primary Care Provider [phone] Unavailable Primary Care Provider UnavailStacia Jennings Attending Unavailable James Nguyen Attending Unavailable Lima ROSAS Admitting Unavailable Lima ROSAS Attending Unavailable Do Montez Attending Unavailable Do Montez Attending Unavailable James Nguyen Attending Unavailable ROCIO MARINELLI Attending Unavailable ROCIO MARINELLI Referring Unavailable ROCIO MARINELLI Admitting Unavailable Angélica Yates Admitting Unavailable Angélica Yates Attending Unavailable Barrett Bales Attending Unavailable Chidi Marrero Admitting Unavailable Anjana Azar Consulting Unavailable TrabalizeiDuurhayf Consulting Unavailable Traboulssi, Mourhaf Consulting Unavailable Traboulssi, Mourhaf Consulting Unavailable Traboulssi, Mourhaf Consulting Unavailable Traboulssi, Mourhaf Consulting Unavailable Traboulssi, Mourhaf Consulting Unavailable Traboulssi, Mourhaf Consulting Unavailable Traboulssi, Mourhaf Consulting Unavailable Kamadana, Dyan Consulting Unavailable Tuyet Falcond Attending Unavailable Alejandra Summers Admitting Unavailable Kamadana, Dyan Consulting Unavailable Kamadana, Dyan Consulting Unavailable Hajdari, Astrit H Attending Unavailable Hajdari, Astrit H Attending Unavailable Stacia Dwyer Attending Unavailable Hank Beard Attending Unavailable Hank Beard Attending Unavailable Stacia Dwyer Attending Unavailable Stacia Dwyer Attending Unavailable Patrick, James Attending Unavailable James Nguyen Attending Unavailable MAGALY, HARDEEP GRACIA Primary Care Unavailable VICK DOMÍNGUEZ Attending Unavailable MAGALY, HARDEEP GRACIA Primary Care Unavailable ABUBAKR, SAMER Referring Unavailable MAGALY, HARDEEP GRACIA Primary Care Unavailable DELFIN DOW Attending Unavailable MAGALY, HARDEEP GRACIA Primary Care Unavailable CHRISTOPHER CASAREZ Attending Unavailable NOÉ LILLY Attending Unavailable MAGALY, HARDEEP GRACIA Primary Care Unavailable SELF Referring Unavailable MAGALY, HARDEEP GRACIA Primary Care Unavailable TIFF DRAPER Attending Unavailable MAGALY, HARDEEP GRACIA Primary Care Unavailable TIFF DRAPER Attending Unavailable MAGALY, HARDEEP GRACIA Primary Care Unavailable ABUBAKR, SAMER Admitting Unavailable STACIA DWYER Referring Unavailable KEY GRACIA Attending Unavailable Deborah RAM-MANUFACTURERS REPRESENTATIVE, Kymberly Unavailable [phone] DO Renay SALINAS Attending UnavailRiaz Jerry Consulting Unavailable DO Yosef SALINASobir R Admitting UnavailELIANE Jerry Jr. Consulting Unavail ELIANE Lee Jr. Consulting Unavail Hank Aguirre Attending Unavailable ELIANE Alvarado Jr. Consulting Unavail able DO Yosef SALINASobir Katherine Attending UnavailDO Yosef Davidobir R Admitting UnavailHank Lorenzo Attending Unavailable Barrett Bales Attending Unavailable Hank Beard Attending Unavailable Chandan SMITH Attending Unavailable Chandan SMITH Admitting Unavailable Priyanka Colin Consulting Unavailable MD Priyanka Colin Consulting Unavailable Priyanka Colin Consulting Unavailable Chandan SMITH Admitting Unavailable Barrett Bales Attending Unavailable Royce TELLEZ Attending Unavailable Artem Feliz Attending Unavailable Royce TELLEZ Attending Unavailable Royce TELLEZ Admitting Unavailable Magaly, DO Hardeep M. Primary Care Provider Magaly, DO Hardeep M. Attending Provider Royce TELLEZ Attending Unavailable ROSALINDARoyce Admitting Unavailable MAGALY, HARDEEP M Attending Unavailable MAGALY, HARDEEP M Admitting Unavailable MAGALY, HARDEEP M Attending Unavailable MAGALY, HARDEEP M Admitting Unavailable Magaly DO, Hardeep M. Primary Care Provider Magaly DO, Hardeep M. Attending Provider Hardeep Mckenzie MD Primary Care Provider MAGALY, HARDEEP M Admitting Unavailable MAGALY, HARDEEP M Referring Unavailable MAGALY, HARDEEP M Attending Unavailable James Nguyen Attending Unavailable Magaly DO, Hardeep M. Primary Care Provider Magaly DO, Hardeep M. Attending Provider [phone] Hank Beard Attending Unavailable James Nguyen Attending Unavailable Monroe DOAniket Unavailable [phone] Magaly, Hardeep M. Admitting Unavailable Magaly, Hardeep M. Primary Care Unavailable Magaly, Hardeep M. Attending Unavailable Magaly, Hardeep M. Admitting Unavailable Magaly, Hardeep M. Primary Care Unavailable Magaly, Hardeep M. Attending Unavailable TerareRoyce murphy Admitting Unavailable BuehreRoyce murphy Attending Unavailable Magaly, Hardeep M. Primary Care Unavailable Magaly DO, Hardeep M. Primary Care Provider Magaly DO, Hardeep M. Attending Provider MAGALY, HARDEEP M Admitting Unavailable MAGALY, HARDEEP M Attending Unavailable Hank Beard Attending Unavailable Hank Beard Attending Unavailable Mohini VICTOR, Artem Benson Unavailable Aniket Childress DO Unavailable Hardeep Mckenzie MD Primary Care Provider [phone] Giedraarnold VICTOR, Andrius Trujilloytautskinny Attending Unavailable Giedraitis , Andrius Vytautskinny Attending Unavailable Giedraitis , Andrius Vytautskinny Attending Unavailable Giedraitis , Andrius Vytautskinny Attending Unavailable Giedraitis , Andrius Vytautas Attending Unavailable Giedraitis , Andrius Vytautskinny Attending Unavailable Aniket Childress DO Unavailable ANIKET CHILDRESS Attending Unavailable MAGALY, HARDEEP Referring Unavailable ANIKET JHAVERI Attending Unavailabl e BOHCONOR, ANIKET Aggarwal Attending Unavailabl e BOHACH, ANIKET Aggarwal Attending Unavailabl e BOHACH, ANIKET Aggarwal Attending Unavailabl e MAGALY, HARDEEP M Attending Unavailable MAGALY, HARDEEP M Admitting Unavailable MAGALY, HARDEEP M Admitting Unavailable MAGALY, HARDEEP M Attending Unavailable Nia Mccray Attending Unavailable Nia Mccray Attending Unavailable Chente Nolan Attending Unavaila ble MAGALY, HARDEEP M Attending Unavailable MAGALY, HARDEEP M Admitting Unavailable Ronald Franco MD Unavailable Avery Garcia Attending Unavailable Avery Garcia Attending Unavailable Nia Mccray Attending Unavailable PROVIDER, UNKNOWN Admitting Unavailable RADHA AVERY Referring Unavailable PROVIDER, UNKNOWN Attending Unavailable PROVIDER, UNKNOWN Admitting Unavailable RADHA AVERY Referring Unavailable PROVIDER, UNKNOWN Attending Unavailable PROVIDER, UNKNOWN Admitting Unavailable RADHA AVERY Referring Unavailable PROVIDER, UNKNOWN Attending Unavailable RADHA AVERY Referring Unavailable DAINA KENNEDY Attending Unavailable PROVIDER, UNKNOWN Admitting Unavailable RONALD FRANCO Attending Unavailable DERICK EDWARDS Referring Unavailable PROVIDER, UNKNOWN Admitting Unavailable GHENCIAN, AVERY Referring Unavailable PROVIDER, UNKNOWN Attending Unavailable PROVIDER, UNKNOWN Admitting Unavailable Unavailable Unavailable Unavailable Allergies Allergy ClassificationReported Allergen(s)Allergy TypeDate of OnsetReaction(s) FacilityamLODIPine (5 sources)amLODIPine; Translations: [amlodipine]Drug Tclekbr71-80-4596Aufrg [facility] HospitalAnti-Epileptic Agents (8 sources)Phenytoin; Translations: [phenytoin]Drug Nobfkur02-60-3198XfexiaGuernsey Memorial Hospitalformoterol / Mometasone (2 sources)formoterol / MometasoneDrug Mfdzpuj95-82-3308Byryi, NauseaMetroHealth hydroCHLOROthiazide (5 sources)hydroCHLOROthiazide; Translations: [hydrochlorothiazide]Drug Allergy 34-63-4690Ptjeitgtdnwz (disorder), HyponatremiaGuernsey Memorial Hospital Labetalol (5 sources)Labetalol; Translations: [labetalol]Drug Rvczlzb35-41-6790TcwhbZhblvvGuernsey Memorial HospitalNIFEdipine (3 sources)NIFEdipine; Translations: [nifedipine]Drug AllergyGuernsey Memorial HospitalNitrofurantoin (2 sources)NitrofurantoinDrug Ojftbfo64-57-3193MrguGfnyqYgpemcRyqbkwetq Reuptake Inhibitors (SSRIs) (2 sources)SertralineDrug Fitkgvu52-40-5676CxkjgPdjtxMiyyovNpxxnfypv (5 sources)Valproate; Translations: [divalproex sodium]Drug Ssqdste83-01-8111 [facility] (20 sources)carBAMazepine; Translations: [TEGretol]Drug Txzmhob69-92-9147Eqv [facility] Repository (20 sources)phenytoin; Translations: [Dilantin]Drug Rbylaik14-97-7925PZZZil [facility] Repository (20 sources)valproate; Translations: [Depakote]Drug Hsdyrfh87-38-3169HQJWraSCCI Hospital [facility]ima Rep[facility] (20 sources)amLODIPine; Translations: [amlodipine]Drug Ormkzed21-44-6097Uhwgzgu, [place], [place] (20 sources)carBAMazepine; Translations: [carbamazepine]Drug Jluddks63-06-1271 [place] ([place] sources)Labetalol; Translations: [labetalol]Drug Zywswkx54-18-4171Pbiqq (See Comments), Unknown, [place], [place] (20 sources)NIFEdipine; Translations: [nifedipine]Drug Suqipyu15-65-3336Kjeqzgn [place], [place] (1 source)PhenytoinDrug Kxothck49-50-7265EtfpykdtaxxOfcxi Health- [place], [place] (20 sources)Valproate; Translations: [DIVALPROEX SODIUM]Drug Emjruwi27-17-8749 Other (See Comments), Other: See Comments, IntoleranceHunlock [place], [place] (20 sources)Phenytoin; Translations: [phenytoin]Drug Ojamyeu95-79-8046 [facility] HospitalComment on above:Had an overdosed of Dilantin -1976 and hasn't taken since (20 sources)Valproate; Translations: [divalproex sodium]Drug Jbilhno58-44-8420 fine tremors, Unknown ReactionGuernsey Memorial Hospital (6 sources)Phenytoin; Translations: [Dilantin CAPS]Drug AllergyMP-[facility] 600 DO Work Phone: (20 sources)Adhesive Tape; Translations: [ADHESIVE TAPE (ROSINS)]Allergy to tieghmnwo25-78-3471RnehOxaxmigtg Clinic Work Phone: (20 sources)formoterol / Mometasone; Translations: [MOMETASONE-FORMOTEROL]Drug Mgevlmo26-49-5479Mwffzpkiztn, Other, Nausea, GI intoleranceMer[facility] Health Tiffin Hospital (20 sources)Hydantoin derivative anticonvulsant; Translations: [HYDANTOINS]Drug Dcmysvlplbu51-46-5228Krlmifdsiuz, Anaphylactic Shock, Other, UnknownMercy Health Tiffin Hospital (20 sources)Valproate; Translations: [VALPROIC ACID]Drug Ntfuaqe25-87-2409 Unknown, IntoleranceMercy Health Tiffin Hospital (4 sources)Environmental [Other]Propensity to adverse mcxhihvka17-70-2533 [facility] Work Phone: (20 sources)Valproic Acid Analogues; Translations: [VALPROIC ACID ANALOGUES] Propensity to adverse aeyrqjcap89-72-2601Tpnzvbakb Clinic Work Phone: (20 sources)NITROFURANTOIN, MACROCRYSTALS / Nitrofurantoin, MonohydrateDrug Allergyrash across nose/ cheeksNort Listen Edition Other (20 sources)amLODIPine; Translations: [Norvasc]Drug Zknnuvd00-24-4119Uad [facility] Repository (1 source)LabetalolDrug Esewzhn90-24-5243Mxf [facility] (20 sources)NIFEdipine; Translations: [Procardia]Drug Pnaaqmo66-58-9243Rwr [facility] Repository (17 sources)NIFEdipineDrug Ssoyelm77-19-0365Jmfbzij [facility] (20 sources)Nitrofurantoin; Translations: [NITROFURANTOIN]Drug Oooldye32-05-7877 [facility] (20 sources)hydroCHLOROthiazide; Translations: [hydrochlorothiazide]Drug Allergy 77-11-4518Piyodfofzcod (disorder), UnknownGuernsey Memorial Hospital (20 sources)Sertraline; Translations: [SERTRALINE]Drug Iuquhqa22-04-4531Vmeuk [facility] (20 sources)CarbamazepinePropensity to adverse reactions to lxwl08-16-9613 ItchingMetroHealth (20 sources)hydroCHLOROthiazideDrug Yiocehv89-00-9929Lauxycubbsoq, Unknown, OtherMetroHealth (20 sources)NifedipinePropensity to adverse reactions to ridy29-27-8202Xlltj, UnknownMetroHealth (20 sources)ValproateDrug Snzzxca06-92-4484Icukl, UnknownMetroHealth (20 sources)Mastisol; Translations: [MASTISOL]Propensity to adverse reactions to awsn87-94-9550AgupYtaytJmijzm (20 sources)MometasoneDrug Lagfgbf75-80-8523YfuomTtjoyjrejWVUMedicine [facility] (3 sources)Adhesive agent; Translations: [ADHESIVE]Drug Qduoitv19-14-6457Ytjq [facility] (9 sources)Wound Dressing AdhesiveDrug Iogtxyh12-52-5642ImjvERFB Healthcare (1 source)AMLODIPINE BASE; Translations: [AMLODIPINE BASE]Propensity to adverse reactions to drug (disorder)16-43-0451[facility] Rep[facility] (1 source)MOMETASONE FURO-FORMOTEROL FUM; Translations: [MOMETASONE FURO- FORMOTEROL FUM]Propensity to adverse reactions to drug (disorder)05-20-1129Tnw [facility] HospitalSpendCrowd[facility] Medications Current Medications MedicationDrug Class(es)DatesSig (Normalized)Sig (Original)albuterol 0.83 mg/ml inhalation solution (20 sources)beta2-Adrenergic AgonistStart: .5 mg, Nebulization, ONCE, 1 dose, On Sun10/08/23 at 2022Start: 08-15-2023 End: 82-51-7682Vbkypmwev Sulfate 90 mcg/actuation HFA aerosol inhaler Discontinued INHALATION August 15, 2023 12:00am October 01, 2023 11:26amStart: 15-60-9645Pxucg: 53-30-1051zpfi 1 puff(s) by inhalation every four hours as needed1 Puff, Inhalation, EVERY 4 HOURS PRN, Starting on Angely 08/02/23 at 0941, Until Discontinued, Shortness of Breath, WheezingStart: 12-92-6315Agzvhshhd Sulfate (2.5 MG/3ML) 0.083% Inhalation Nebulization Solution INHALE 1 vial via NEBULIZER THREE TIMES DAILY NEEDED FOR 14 DAYS Quantity: 180 Refills: 0 Ordered: 21-Mar-2022 DO Start : 21-Mar-2022 ActiveStart: 49-10-1705pmzjttojd (PROVENTIL) nebulizer solution 2.5 mgStart: 68-64-7431Bvgpgjbsz Sulfate (2.5 MG/3ML) 0.083% 3 ml as needed Inhalation Three times a day for 14 days Jan, Activetake 2 puff(s) by inhalation every six hours as needed for wheezing albuterol (PROVENTIL HFA) INHALATION HFA inhaler (VENTOLIN,PROAIR,PROVENTIL) 90mcg INHALE 2 PUFFS EVERY 6 HOURS NEEDED FOR WHEEZING Activetake 2 puff(s) by inhalation every four hours for wheezingalbuterol HFA 90 mcg/act inhaler Inhale 2 puffs every 4 (four) hours if needed for wheezing Activetake 2 puff(s) by inhalation every four hours as neededalbuterol HFA (PROVENTIL HFA, VENTOLIN HFA) 90 mcg/actuation inhaler Inhale 2 Puffs as instructed every 4 hours as needed. 0 ActiveComment on above:Inhale 2 Puffs as instructed every 4 hours as needed.Albuterol (Eqv-ProAir HFA) 90 mcg/inh inhalation aerosol (8 sources)Start: 42-41-5832ssac 2 puff(s) by inhalation every six hours Albuterol (Eqv-ProAir HFA) 90 mcg/inh inhalation aerosol 2 puff(s), Inhalation, q6hr Wheezing, 6.7 gm, Refill(s) 0, [employer], 170, cm, 07/08/23 22:00:00 EDT, Height/Length Dosing, 83.6, kg, 07/08/23 22:00:00 EDT, Weight Dosing Start Date: 07/11/23 Status: Orderedamantadine hydrochloride 10 mg/ml oral solution (15 sources)Influenza A M2 Protein InhibitorStart: 08-24-2023 End: 18-79-8108pwhp 10 mL by mouth twice dailyamantadine (SYMMETREL) 50 MG/5ML SOLN oral syrup 10 mL by NG Tube route 2 times daily. 473 mL 08/24/2023 Active Start: 23-91-1536090 mg, NG Tube, 2 TIMES DAILY, First dose on Angely 08/23/23 at 2230, Until DiscontinuedStart: 08-18-2023 End: 61-28-8247shwy 100 mg by mouth twice xeesv096 mg, Oral, 2 TIMES DAILY, First dose on 08/18/23 at 2000, Until DiscontinuedB Complex Vitamins CAPS (20 sources)take 1 capsule by mouth once dailyB Complex Vitamins CAPS Take 1 Capsule by mouth daily. Suspendedtake 1 capsule by mouth once dailyB Complex Vitamins CAPS Take 1 Capsule by mouth daily. ActiveB Complex Vitamins capsule (20 sources)take 1 capsule by mouth once dailyB Complex Vitamins capsule Take 1 capsule by mouth once daily. Activetake 1 capsule by mouth once dailyB Complex Vitamins capsule Take 1 capsule by mouth once daily. 0 Suspendedtake 1 capsule by mouth once dailyB Complex Vitamins capsule Take 1 capsule by mouth once daily. 0 ActiveComment on above:Take 1 capsule by mouth once daily.benoxinate hydrochloride 4 mg/ml / fluorescein sodium 3 mg/ml ophthalmic solution (4 sources)Diagnostic DyeStart: 09-25-2023 End: 77-47-8712svwcgctjsut-benoxinate 0.3-0.4 % 1 Drop (FLURESS)Start: 05-25-2023 End: 56-63-0723ofcbgcmfaat-benoxinate 0.3-0.4 % 1 Drop (FLURESS)Start: 12-27-2021 End: 27-01-7646lzztlqvcpyt-benoxinate 0.25-0.4 % 1 Drop (FLURESS) carboxymethylcellulose sodium 5 mg/ml / glycerin 9 mg/ml ophthalmic solution (2 sources)Non-Standardized Chemical AllergenStart: 09-18-2023 Carboxymethylcellulose-Glycern (OPTIVE) 0.5-0.9 % drop Use 1 Drop in both eyes three times a day. 15 mL 5 09/18/2023 Activecephalexin 500 mg oral capsule (20 sources)Cephalosporin AntibacterialStart: 01-11-2025 End: 63-52-2027rykp 1 capsule by mouth twice dailycephALEXin (KEFLEX) 500 MG capsule Take 1 Capsule by mouth 2 times daily for 7 days. 14 Capsule 01/12/2025 01/19/2025 ActiveStart: 02-02-2022 End: 81-50-0225ejac 1 capsule by mouth every twelve hoursKeflex 500 mg Cap 500 mg = 1 cap(s), Oral, q12hr, X 5 day(s), # 10 cap(s), Refills(s) 0, Pharmacy: [facility], 170, cm, 02/02/22 5:38:00 EST, Height/Length Dosing, 90, kg, 02/02/22 5:38:00 EST, Weight Dosing Start Date: 02/02/22 Stop Date: 02/07/22 Status: OrderedStart: 05-16-2019 End: 67-69-8026ksmn 2 capsules by mouth twice dailyCephalexin (Keflex) 500 mg capsule Discontinued 1000 MG PO Twice daily 40 May 16, 2019 1:00amJune 2019 1:53pmcetirizine hydrochloride 10 mg oral tablet (20 sources)Histamine-1 Receptor AntagonistStart: 82-70-9311biqy 1 dose by mouth once10 mg, Oral, Once, 1 dose, On 01/11/25 at 1038Start: 56-07-6440eyhe 1 tablet by mouth once dailyCetirizine 10 mg tablet Active 0 .ROUTE .COMPLEX April 10, 2024 6:09pm TAKE ONE TABLET BY MOUTH ONCE DAILY FOR ALLERGY SYMPTOMSStart: 11-07-2023 End: 75-93-8516zaeo 1 tablet by mouth once daily as neededCetirizine (Allergy Relief (Cetirizine)) 5 mg tablet Discontinued 5 MG PO Daily as needed October 12:00am November 14, 2023 2:44pmStart: 10-01-2023 End: 49-93-7273Uihfkmxquq Discontinued MG PO October 01, 2023 12:00am November 07, 2023 4:03pmStart: 20-19-9755bpbf 1 dose by mouth once daily as needed Zyrtec 10 mg, Oral, Daily, PRN Allergy symptoms, Refills(s) 0 Start Date: 04/29/18 Status: Ordered Medication Dispense Status: Completed Total Allowed Fills: 1 Fills Dispensed: 0Start: 04-29-2018 End: 53-98-9125vgvhuqlyav (ZyrTEC) 10 MG tablet Take by mouth Daily 02/12/2024 ActiveStart: 19-73-1445Hrgfgs 10 mg, Oral, Daily, PRN Allergy symptoms, Refills(s) 0 Start Date: 04/29/18 Status: Ordered Repeat number: 1Start: 89-96-7853ysxmkeabnp 10 mg ODT Cetirizine Cetirizine Active 10 MG Oral Daily August 01, 2017 3:16pm 80-63-1991KokrtlxxuAv[facility] ([id number] 08/01/2017 ActiveStart: 08-01-2017 End: 56-50-4469kryz 1 tablet by mouth once dailyCetirizine (Zyrtec) 10 mg Tablet,Disintegrating Discontinued 10 MG PO Daily August 01, 2017 12:00am September 03, 2023 3:56pmComment on above:Cetirizine Cetirizine Active 10 MG Oral Daily August 01, 2017 3:16pm 08-01-2017 [facility] ([id number]) chlorhexidine gluconate 1.2 mg/ml mouthwash (14 sources)Start: 08-17-2023 End: 38-50-1181kkkk 15 mL by mouth twice dailychlorhexidine (PERIDEX) 0.12 % oral solution Take 15 mL by mouth 2 times daily. 118 mL 3 4Active cholecalciferol 0.025 mg oral capsule (20 sources)Vitamin DStart: 05-14-2023 End: 63-55-7346Vxeaijrnxgbsloh (Vitamin D-3) 25 MCG (1000 UT) CAPS Cholecalciferol (Vitamin D3) Active PO Daily May 14, 2023 1:00am FreeTextSig: Orally Daily; Note: Source Status: Taking; Provider: Michael Yip ( ) 05/14/2023 ActiveStart: 05-14-2023 End: 48-12-7291Zbdgjzrtemhqveg (Vitamin D3) 50 mcg (2,000 unit) capsule Discontinued PO Daily May 14, 2023 1:00am September 03, 2023 3:47pm FreeTextSig: Orally Daily; Note: Source Status: Taking; Provider: Michael Yip ( )Start: 05-14-2023 End: 36-71-7427Niabcbcwvfuolnz (Vitamin D3) Discontinued PO Daily May 14, 2023 1:00am September 03, 2023 3:47pm FreeTextSig: Orally Daily; Note: Source Status: Taking; Provider: Michael Yip ( )Vitamin D-3 25 MCG (1000 UT) Oral Capsule TAKE DIRECTED. Quantity: 0 Refills: 0 Ordered: 23-Aug-2022 DO ActiveComment on above:Take by mouth once daily.citalopram 10 mg oral tablet (20 sources)Serotonin Reuptake InhibitorStart: 05-12-9157yfzm 1 tablet by mouth once dailyCitalopram 10 mg tablet Active 0 .ROUTE .COMPLEX April 10, 2024 6:09pm TAKE ONE TABLET BY MOUTH ONCE DAILYStart: 11-02-2023 End: 60-11-2491shgv 1 tablet by mouth once dailycitalopram 20 mg Tab 20 mg = 1 tab(s), Oral, Daily, # 30 tab(s), Refills(s) 0, Pharmacy: [facility], 170, cm, 10/16/23 15:59:00 EDT, Height/Length Dosing, 88, kg, 10/16/23 15:59:00 EDT, Weight Dosing Start Date: 11/02/23 Status: Ordered Medication Dispense Status: Completed Quantity: 30.0 Unit: tab(s) Total Allowed Fills: 1 Fills Dispensed: 0Start: 10-19-2023 End: 60-21-1868vker 1 tablet by mouth once dailyCitalopram 10 mg tablet Discontinued 10 MG PO Daily November 09, 2023 12:00am April 10, 2024 6:09pmCo Q 10 100 MG (20 sources)take 1 tablet by mouth once dailyCo Q 10 100 MG one tab Orally once a day ActiveCo Q 10 100 MG as directed Orally ActiveDocosahexaenoate (20 sources)Start: 56-22-4592ngst 1 capsule by mouth once dailyDOCOSAHEXAENOIC ACID ORAL Take 1 Capsule by mouth daily. 12/22/2021 SuspendedStart: 12-22-2021 take 1 capsule by mouth once dailyDOCOSAHEXAENOIC ACID ORAL Take 1 Capsule by mouth daily. 12/22/2021 ActiveStart: 54-13-3765luwf 1 capsule by mouth once dailyDOCOSAHEXAENOIC ACID ORAL Take 1 capsule by mouth once daily. 0 12/22/2021 ActiveComment on above:Take 1 capsule by mouth once daily.docusate sodium 100 mg oral capsule (20 sources)Start: 80-21-5024neym 1 capsule by mouth once daily as needed Docusate Sodium 100 mg capsule Active 100 MG PO Daily as needed February 18, 2024 5:04pmStart: 01-31-2024 End: 24-85-8686tngk 1 capsule by mouth once daily as needed for constipation Docusate Sodium 100 mg capsule Discontinued 0 .ROUTE .COMPLEX January 31, 2024 6:28pm February 18, 2024 5:06pm TAKE ONE CAPSULE BY MOUTH DAILY NEEDED FOR CONSTIPATIONStart: 12-11-2023 End: 68-73-7078Ivqzxjqc Sodium 100 mg capsule Discontinued MG PO December 11, 2023 12:00am January 31, 2024 6:28pmStart: 00-44-2346jwru 1 capsule by mouth twice dailydocusate sodium 100 mg Cap 100 mg = 1 cap(s), Oral, BID, TAKE 1 CAPSULE BY MOUTH TWICE DAILY Start Date: 10/03/23 Status: OrderedStart: 08-13-2023 End: 20-69-7016wgvc 100 mg by mouth twice hwyaw202 mg, Oral, 2 TIMES DAILY, First dose on Sun08/13/23 at 0241, Until DiscontinuedStart: 06-28-2023 End: 10-74-0651zxak 1 capsule by mouth once daily as needed for constipation Docusate Sodium 100 mg capsule Discontinued 100 MG PO Daily as needed for constipation October 02, 2023 10:25am November 07, 2023 4:12pmStart: 12-15-2018 End: 47-40-0808xwdj 1 capsule by mouth once daily as neededDocusate Sodium 100 mg capsule Discontinued 100 MG PO Daily as needed May 14, 2023 1:00am May 112023 3:29pmComment on above:Take 100 mg by mouth once daily. as needed doxazosin 4 mg oral tablet (14 sources)alpha-Adrenergic BlockerStart: 08-16-2023 End: 67-30-4164mcva 1 tablet by mouth once dailydoxazosin (CARDURA) 4 MG tablet Take 1 Tablet by mouth daily. 30 Tablet 08/25/2023 Activedoxycycline hyclate 100 mg oral tablet (7 sources)Tetracycline-class DrugStart: 10-06-2023 End: 08-50-2347nwve 1 tablet by mouth every twelve hoursdoxycycline hyclate 100 mg Tab 100 mg = 1 tab(s), Oral, q12hr, X 8 day(s), # 16 tab(s), Refills(s) 0, Pharmacy: [facility], 170, cm, 10/03/23 17:35:00 EDT, Height/Length Dosing, 88.9,kg, 10/03/23 17:35:00 EDT, Weight Dosing Start Date: 10/06/23 Stop Date: 10/14/23 Status: OrderedStart: 07-11-2023 End: 50-21-4405vedx 1 capsule by mouth twice dailydoxycycline hyclate 100 mg Cap 100 mg = 1 cap(s), Oral, BID, X 10 day(s), # 20 cap(s), Refills(s) 0, Pharmacy: [facility], 170, cm, 07/08/23 22:00:00 EDT, Height/Length Dosing, 83.6, kg, 07/08/23 22:00:00 EDT, Weight Dosing Start Date: 07/11/23 Stop Date: 07/21/23 Status: OrderedStart: 11-06-4602mqtohxldggd hyclate (VIBRA-TABS) tablet 100 mgStart: 12-18-2018 End: 29-88-5307fkxn 1 tablet by mouth twice dailydoxycycline hyclate (VIBRA- TABS) 100 MG tablet Take 1 tablet by mouth 2 times daily for 7 days 14 tablet 0 12/18/2018 12/25/2018 Activefamotidine 40 mg oral tablet (20 sources)Histamine-2 Receptor AntagonistStart: 01-31-2024 End: 91-13-3272nfft 1 tablet by mouth once dailyFamotidine 40 mg tablet Discontinued 0 .ROUTE .COMPLEX January 31, 2024 6:28pm February 18, 2024 5:06pm TAKE ONE TABLET BY MOUTH DAILYStart: 07-09-2023 End: 69-53-9336osop 1 tablet by mouth once daily at bedtimeFamotidine 40 mg tablet Discontinued 0 .ROUTE .COMPLEX July 09, 2023 5:13pm September 03, 2023 3:56pm TAKE ONE TABLET BY MOUTH ONCE DAILY AT BEDTIMEStart: 12-01-2021 End: 61-53-8325wqrd 1 tablet by mouth once dailyfamotidine 40 mg Tab 40 mg = 1 tab(s), Oral, Daily, # 30 tab(s), Refills(s) 0, Pharmacy: [facility] #37, 170.2, cm, 11/30/21 20:21:00 EDT, Height/Length Dosing, 87.4, kg, 11/30/21 20:21:00 EDT, Weight Dosing Start Date: 12/01/21 Status: Ordered Medication Dispense Status: Completed Quantity: 30.0 Unit: tab(s) Total Allowed Fills: 1 Fills Dispensed: 0ferrous sulfate 325 mg oral tablet (20 sources)Start: 01-31-2024 End: 81-65-0229zwyz 1 tablet by mouth once dailyFerrous Sulfate 325 mg (65 mg iron) tablet Discontinued 0 .ROUTE .COMPLEX January 31, 2024 6:28pm February 18, 2024 5:06pm TAKE ONE TABLET BY MOUTH DAILYStart: 07-09-2023 End: 08-16-4902yxub 1 tablet by mouth once dailyFerrous Sulfate 325 mg (65 mg iron) tablet Discontinued 0 .ROUTE .COMPLEX July 09, 2023 5:13pm September 03, 2023 3:56pm TAKE ONE TABLET BY MOUTH ONCE DAILYStart: 07-09-2023 End: 11-52-8363rxoe 1 tablet by mouth once dailyFerrous Sulfate Discontinued 0 .ROUTE .COMPLEX July 09, 2023 5:13pm September 03, 2023 3:56pm TAKE ONE TABLET BY MOUTH ONCE DAILYStart: 05-14-2023 End: 49-26-1693guje 1 tablet by mouth once dailyFerrous Sulfate 325 mg (65 mg iron) tablet Discontinued 1 TAB PO Daily May 14, 2023 1:00am 2023 2:23pm FreeTextSi tablet Orally Once a day; Note: Source Status: Taking; Refills: 1; Qty: 90 Tablet; Provider: Magaly Fischer MStart: 05-14-2023 End: 73-71-2252exgm 1 tablet by mouth once dailyFerrous Sulfate 325 mg (65 mg iron) tablet Discontinued 1 TAB PO Daily May 14, 2023 12:00am May 14, 2023 1:23pm FreeTextSi tablet Orally Once a day; Note: Source Status: Taking; Refills: 1;Qty: 90 Tablet; Provider: Magaly Fischer MStart: 05-14-2023 End: 00-28-3740xcys 1 tablet by mouth once dailyFerrous Sulfate Discontinued 1 TAB PO Daily May 14, 2023 1:00am May 14, 2023 2:23pm FreeTextSi tablet Orally Once a day; Note: Source Status: Taking; Refills: 1; Qty: 90 Tablet; Provider: Magaly Fischer MStart: 12-02-2021 End: 40-93-7829wpuq 1 tablet by mouth once dailyferrous sulfate 325 mg Tab 325 mg = 1 tab(s), Oral, Daily, # 30 tab(s), Refills(s) 0, Pharmacy: [facility] #37, 170.2, cm, 11/30/21 20:21:00 EDT, Height/Length Dosing, 87.4, kg, 11/30/21 20:21:00 EDT, Weight Dosing Start Date: 12/02/21 Status: Ordered Medication Dispense Status: Completed Quantity: 30.0 Unit: tab(s) Total Allowed Fills: 1 Fills Dispensed: 0take 1 tablet by mouth once dailyFerrous Sulfate 325 (65 Fe) MG 1 tablet Orally Once a day for 90 days Activetake 1 tablet by mouth once dailyFerrous Sulfate 325 (65 Fe) MG 1 tablet Orally Once a day for 30 day(s) Activetake 1 tablet by mouth once dailyFerrous Sulfate 325 (65 Fe) MG 1 tablet Orally Once a day ActiveComment on above:Take 325 mg by mouth.Fish Oils (20 sources)Start: 83-88-8396fojl 1 capsule by mouth at bedtimeFish Oil = 1 cap(s), Oral, Bedtime, Refills(s) 0 Start Date: 04/23/11 Status: Ordered Medication Dispense Status: Completed Total Allowed Fills: 1 Fills Dispensed: 0 Start: 22-52-5085egci 1 capsule by mouth at bedtimeFish Oil = 1 cap(s), Oral, Bedtime, Refills(s) 0 Start Date: 04/23/11 Status: Ordered Repeat number:1Start: 08-24-0971wqqk 1 capsule by mouth at bedtimeFish Oil = 1 cap(s), Oral, Bedtime, Refills(s) 0 Start Date: 04/23/11 Status: Orderedtake 1 capsule by mouth once dailyFish Oil 1000 MG 1 capsule Orally once daily Activetake 1 capsule by mouth twice dailyFish Oil 1000 MG 1 capsule Orally Twice a day Activetake 1 capsule by mouth once dailyFish Oil 1000 MG 1 capsule Orally Once a day Activefolic acid 1 mg oral tablet (13 sources)Start: 08-24-2023 End: 53-21-2946pbft 1 tablet by mouth once dailyfolic acid 1 MG tablet Take 1 Tablet by mouth daily for 2 doses. 2 Tablet 08/25/2023 Activefront wheeled walker dx left knee hematoma (9 sources)Start: 96-47-7943gjegm wheeled walker dx left knee hematoma front wheeled walker dx left knee hematoma, Print Requisition, Compound Start Date: 11/11/18 Status: Orderedgabapentin 300 mg oral capsule (20 sources)Anti-epileptic AgentStart: 62-02-7245osvl 1 dose by mouth grwz140 mg, Oral, Once, 1 dose, On 01/11/25 at 1038Start: 01-31-2024 End: 88-57-3657yptv 1 capsule by mouth three times dailyGabapentin 300 mg capsule Discontinued 0 .ROUTE .COMPLEX 90 January 31, 2024 6:28pm February 18, 2024 5:06pm TAKE ONE CAPSULE BY MOUTH THREE TIMES A DAY FOR 30 DAYSStart: 12-35-7237qlqt 1 dose by mouth ohmw394 mg, Oral, ONCE, 1 dose, On Sun10/08/23 at 2022Start: 10-01-2023 End: 92-43-8261Ilfgvvuckj Discontinued MG PO October 01, 2023 12:00am October 01, 2023 3:12pmStart: 40-91-9490uiverxcqli (Neurontin) 400 MG capsule Take 300 mg by mouth in the morning and 300 mg in the eveningand 300 mg before bedtime. 01/25/2023 ActiveStart: 04-23-2011 End: 01-06-6320mglb 1 capsule by mouth three times dailygabapentin 300 mg Cap 300 mg = 1 cap(s), Oral, TID Start Date: 07/09/23 Status: Ordered Medication [facility] Status: Completed Total Allowed Fills: 1 Fills Dispensed: 0take 1 capsule by mouth every eight hoursGabapentin 400 MG 1 capsule Orally Three times a day for 30 days ActiveComment on above:Take 300 mg by mouth three times daily.Take 300 mg by mouth.1 ml heparin sodium, porcine 5000 unt/ml prefilled syringe (5 sources)Unfractionated Heparin, Anti-coagulantStart: 08-24-2023 End: 74-00-2699krycdj 1 mL by subcutaneous injection every eight hoursHeparin Sodium, Porcine, (heparin, porcine,) 5,000 units/mL injection Inject 1 mL under the skin every 8 hours for 14 days. Heparin to be discontinued at the discretion of SNF provider for DVT prophylaxis. 42 mL 08/24/2023 09/07/2023 ActiveStart: 59-26-3119rjzifj 5000 [IU] by subcutaneous injection every eight hours5,000 Units, Subcutaneous, EVERY 8 HOURS, First dose on Sun08/17/23 at 1130, Until DiscontinuedhydroCHLOROthiazide 25 mg / triamterene 37.5 mg oral tablet (20 sources)Potassium-sparing Diuretic, Thiazide DiureticStart: 05-08-2023 End: 66-19-8380rmcb 1 tablet by mouth once dailytriamterene-hydrochlorothiazide (Maxzide-25) 37.5-25 MG tablet Take 1 tablet by mouth Daily 05/08/2023 Active Start: 16-45-0542xurx 0.5 tablet by mouth once dailyhydrochlorothiazide- triamterene 25 mg-37.5 mg Tab 0.5 tab(s), Oral, Daily, 30 tab(s), Refill(s) 1, [facility] #37, 170, cm, 12/11/21 18:41:00 EDT, Height/Length Dosing, 87.7, kg, 12/11/2217:41:00 EDT, Weight Dosing Start Date: 12/13/21 Status: OrderedStart: 12-15-2018 End: 44-64-6200axkh 1 tablet by mouth once daily1 tablet, Oral, DAILY, First dose on 12/15/18 at 1430Start: 11-10-2018 End: 81-52-4085yjme 1 capsule by mouth once daily in the morningTriamterene- Hydrochlorothiazid 37.5-25 mg Capsule Discontinued 1 CAP PO Every morning December 12:00am April 30, 2023 7:24pmtake 1 capsule by mouth once daily in the morningDyazide 37.5-25 MG 1 capsule in the morning Orally Once a day for 90 days Activetake 1 capsule by mouth once daily in the morningDyazide 37.5-25 MG 1 capsule in the morning Orally Once a day for 90 days Not-Taking Comment on above:Take 1 capsule by mouth once daily.sodium hypochlorite 1.25 mg/ml topical solution (1 source)Start: 89-68-3630tsawie hypochlorite (DAKINS) 0.125 % external solutionImmune Support Vitamin C - (20 sources)take 1 tablet by mouth once dailyImmune Support Vitamin C - 1 Tablet Orally Daily ActiveImodium A-D EZ Chews 2 mg oral tablet, chewable (5 sources)Start: 42-54-1883Cskdihe A-D EZ Chews 2 mg oral tablet, chewable 1 tab(s), Chewed, TID for loose stool, 20 tab(s), Refill(s) 0 Start Date: 03/09/24 Status: Ordered Quantity: 20.0 Unit: tab(s) Repeat number: 1Start: 03-09-2024 Imodium A-D EZ Chews 2 mg oral tablet, chewable 1 tab(s), Chewed, TID for loose stool, 20 tab(s), Refill(s) 0 Start Date: 03/09/24 Status: Orderediv contrast (will be provided with radiology test) (1 source)Start: 07-06-2023 End: 86-29-2807gjqugz 1 dose intravenously onceiv contrast (will be provided with radiology test) [...] guidelines link 1 Each 0 07/06/2023 2023 ActivelevETIRAcetam 100 mg/ml oral solution (20 sources)Start: 08-24-2023 End: 35-55-9751vwcn 5 mL by mouth twice dailylevETIRAcetam (KEPPRA) 100 MG/ML oral solution Take 5 mL by mouth 2 times daily. 240 mL 1 08/24/2023 ActiveStart: 21-43-4717vdhk 500 mg by mouth twice aqsow782 mg, Oral, 2 TIMES DAILY, First dose on Sun08/19/23 at 0330, Until DiscontinuedStart: 08-16-2023 End: 51-63-9751165 mg, Intravenous, EVERY 12 HOURS, First dose on Angely 08/16/23 at 0030, Until Discontinued, at 400 mL/hrStart: 08-01-2023 End: 18-09-2428570 mg, Oral, 2 TIMES DAILY, 8 doses, First dose (after last modification) on Sun08/01/23 at 2100, Last dose on Sun08/05/23 at 0900Start: 07-31-2023 End: 58-60-0435463 mg, Oral, 2 TIMES DAILY, 11 doses, First dose on Sun07/31/23 at 1800, Last dose on Sun08/05/23 at 2100Start: 38-47-4072Ehmhlk 500 mg, Bedtime, Refills(s) 0 Start Date: 07/09/23 Status: OrderedStart: 06-15-2023 End: 06-23-2341zlxm 1 tablet by mouth once dailyLevetiracetam (Keppra Xr) 500 mg tablet extended release 24 hr Discontinued 500 MG PO Daily June 28, 2023 12:00am September 03, 2023 3:54pmStart: 05-07-2023 End: 22-52-0864bfas 1 tablet by mouth in the morninglevETIRAcetam (Keppra) 500 MG tablet Take 500 mg by mouth in the morning and 500 mg in the evening. 05/07/2023 ActiveComment on above:Take 1 tablet by mouth two times a day.Take 1 tablet by mouth daily at bedtime.levoFLOXacin 750 mg oral tablet (2 sources)Quinolone AntimicrobialStart: 12-18-2018 End: 45-86-2140degy 1 tablet by mouth once dailylevofloxacin (LEVAQUIN) 750 MG tablet Take 1 tablet by mouth daily for 7 days 7 tablet 1 Activelisinopril 10 mg oral tablet (20 sources)Angiotensin Converting Enzyme InhibitorStart: 16-94-2815iahk 1 tablet by mouth once dailylisinopril 10 mg Tab 10 mg = 1 tab(s), Oral, Daily, # 30 tab(s), Refills(s) 0 Start Date: 04/11/24 Status: Ordered Quantity: 30.0 Unit: tab(s) Repeat number: 1Start: 82-41-3410dphi 1 tablet by mouth once daily Lisinopril 30 mg tablet Active 0 .ROUTE .COMPLEX April 10, 2024 6:09pm TAKE ONE TABLET BY MOUTH ONCE DAILYStart: 11-02-2023 End: 30-24-4764lusz 1 tablet by mouth once dailylisinopril 30 mg Tab 30 mg = 1 tab(s), Oral, Daily, # 30 tab(s), Refills(s) 0, Pharmacy: [facility], 170, cm, 10/16/23 15:59:00 EDT, Height/Length Dosing, 88, kg, 10/16/23 15:59:00 EDT, Weight Dosing Start Date: 11/02/23 Status: Ordered Medication Dispense Status: Completed Quantity: 30.0 Unit: tab(s) Total Allowed Fills: 1 Fills Dispensed: 0Start: 10-18-2023 End: 88-83-8302nrovmrkcap 20 mg Tab 20 mg = 1 tab(s), Tab, Oral, Start date 10/18/23 9:00:00 AM EDT, 10/17/23 13:50:00 EDT Start Date: 10/18/23 Stop Date: 10/18/23 Status: CompletedStart: 10-01-2023 End: 80-99-2578rzyp 1 tablet by mouth once dailyLisinopril 20 mg tablet Discontinued 20 MG PO Daily 30 October 01, 2023 3:13pm November 07, 2023 4 :05pmStart: 10-01-2023 End: 65-33-9464Jrgafhwxga Discontinued MG PO October 01, 2023 12:00am October 01, 2023 3:13pmStart: 08-15-2023 End: 17-85-5156eedu 2.5 mg by mouth once daily2.5 mg, Oral, DAILY, First dose on Sun08/15/23 at 1530, Until DiscontinuedStart: 02-22-2023 End: 17-06-6346byjl 1 tablet by mouth once dailylisinopril (ZESTRIL) 5 MG tablet Take 1 Tablet by mouth daily. 30 Tablet 08/25/2023 ActiveStart: 02-12-2023 End: 27-62-0065resd 1 tablet by mouth twice dailyLisinopril 5 mg tablet Discontinued 5 MG PO Twice daily May 14, 2023 1:00am May 14, 2023 2:24pm Start: 83-55-4152mcne 1 tablet by mouth twice dailyLisinopril 2.5 MG Oral Tablet TAKE 1 TABLET TWICE DAILY. Quantity: 180 Refills: 3 Ordered: 23-Aug-2022 Angélica Yates MD Start : 23-Aug-2022 ActiveStart: 08-04-2022 End: 00-59-4430smvjtiwmne 2.5 mg Tab 2.5 mg = 1 tab(s), Tab, Oral, Start date 08/04/22 9:00:00 EDT, 08/03/22 8:12:00 EDT Start Date: 08/04/22 Stop Date: 08/04/22 Status: CompletedStart: 39-06-7882rxop 1 tablet by mouth once daily lisinopril 2.5 mg Tab 2.5 mg = 1 tab(s), Oral, Daily, # 30 tab(s), Refills(s) 0, Pharmacy: [facility] #37, 170.2, cm, 08/01/22 17:13:00 EDT, Height/Length Dosing, 83, kg, 08/01/22 17:13:00 EDT, Weight Dosing Start Date: 08/03/22 Status: OrderedStart: 12-16-2021 End: 34-95-4615kcue 1 tablet by mouth once dailylisinopril 2.5 mg Tab 2.5 mg = 1 tab(s), Oral, Daily, # 30 tab(s), Refills(s) 0, Pharmacy: [facility] #37, 170, cm, 12/15/21 11:14:00 EDT, Height/Length Dosing, 86.5, kg, 12/15/21 11:14:00 EDT, Weight Dosing Start Date: 12/16/21 Status: Orderedtake 1 tablet by mouth once dailyLisinopril 20 MG 1 tablet Orally Once a day ActiveLORazepam 0.5 mg oral tablet (20 sources)BenzodiazepineStart: 08-16-2023 End: 02-58-8765xkiw 1 dose intravenously once1 mg, Intravenous Push, ONCE, 1 dose, On Angely 08/16/23 at 2100Start: 40-27-0613gylb 1 mg by mouth every eight hours as needed1 mg, Oral, EVERY 8 HOURS PRN, Starting on 07/30/23 at 2036, Until Discontinued, AnxietyStart: 62-95-7210jesc 1 tablet by mouth every eight hours as needed for anxietyLORazepam 0.5 mg Tab 0.5 mg = 1 tab(s), Oral, q8hr, PRN as needed for anxiety, # 30 tab(s), Refills(s) 0, Pharmacy: [facility], 170, cm, 10/16/23 15:59:00 EDT, Height/Length Dosing, 88, kg,10/16/23 15:59:00 EDT, Weight Dosing Start Date: 11/02/23 Status: Ordered Medication Dispense Status: Completed Quantity: 30.0 Unit: tab(s) Total Allowed Fills: 1 Fills Dispensed: 0Start: 07-16-2023 End: 51-79-6809ljmx 1 tablet by mouth three times daily as neededLORazepam (ATIVAN) 0.5 MG tablet Take 0.5 mg by mouth 3 times daily as needed. 07/19/2023 ActiveStart: 07-11-2023 End: 14-01-1364xzlc 1 tablet by mouth three times daily as needed for anxiety Ativan 0.5 mg Tab 0.5 mg = 1 tab(s), Oral, TID, PRN Anxiety, X 3 day(s), # 9 tab(s), Refills(s) 0, Pharmacy: [facility], 170, cm, 07/08/23 22:00:00 EDT, Height/Length Dosing, 83.6, kg, 07/08/23 22:00:00 EDT, Weight Dosing Start Date: 07/11/23 Stop Date: 07/14/23 Status: Orderedmagnesium oxide 400 mg oral tablet (20 sources)Start: 10-01-2023 End: 20-43-0117Quiksbjcc Oxide 400 mg (241.3 mg magnesium) tablet Discontinued MG PO October 01, 2023 12:00am July 22, 2024 1:30pmStart: 07-14-2017 End: 03-84-2404fvzr 1 tablet by mouth once dailymagnesium oxide (Mag-Ox) 400 (240 Mg) MG tablet Take 400 mg by mouth Daily 09/24/2023 ActiveMagnesium Oxide 400 MG CAPS Take by mouth daily. Activetake 1 tablet by mouth every twenty-four hoursMagOx 400 400 (241.3 Mg) MG 1 tablet with food Orally Once a day Active Comment on above:Take by mouth once daily.MagOx 400 400 (241.3 Mg) MG (20 sources)take 1 tablet by mouth once daily at mealtimeMagOx 400 400 (241.3 Mg) MG 1 tablet with food Orally Once a day Activemelatonin 3 mg oral tablet (20 sources)Start: 07-31-2023 End: 21-58-2583plfb 1 tablet by mouth at bedtimemelatonin 3 MG TABS tablet Take 1 Tablet by mouth at bedtime. 90 Tablet 08/04/2023 Activemetoprolol tartrate 25 mg oral tablet (20 sources)beta-Adrenergic BlockerStart: 16-54-5821Cfcyhipyis Tartrate 25 mg tablet Active 12.5 MG PO Twice daily May 21, 2024 3:49pmStart: 04-10-2024 End: 13-53-3665jnpw 0.5 tablet by mouth twice dailyMetoprolol Tartrate 25 mg tablet Discontinued 0 .ROUTE .COMPLEX April 10, 2024 6:09pm May 21, 2024 3:49pm TAKE 1/2 TABLET BY MOUTH TWICE A DAYStart: 11-07-2023 End: 97-62-8474Uhoqqdlyxa Tartrate 25 mg tablet Discontinued 12.5 MG PO Twice daily November 14, 2023 2:43pm April 10, 2024 6:09pmStart: 11-07-2023 End: 23-25-8642npjm 12.5 mg by mouth twice dailyMetoprolol Tartrate Active 12.5 MG PO Twice daily November 14, 2023 2:43pmStart: 10-18-2023 End: 77-32-9642Jvmnoriabg tartrate 25 mg Tab 12.5 mg = 0.5 tab(s), Tab, Oral, Start date 10/18/23 9:00:00 AM EDT, 10/17/23 13:50:00 EDT Start Date: 10/18/23 Stop Date: 10/18/23 Status: CompletedStart: 10-17-2023 End: 00-26-3420Kkvgowswap tartrate 25 mg Tab 12.5 mg = 0.5 tab(s), Tab, Oral, Start date 10/17/23 9:00:00 PM EDT, 10/17/23 13:50:00 EDT Start Date: 10/17/23 Stop Date: 10/17/23 Status: CompletedStart: 10-05-2023 End: 92-29-1421Dnowiuggdy tartrate 25 mg Tab 25 mg = 1 tab(s), Tab, Oral, Start date 10/06/23 9:00:00 AM EDT, 10/05/23 13:10:00 EDT Start Date: 10/06/23 Stop Date: 10/06/23 Status: CompletedStart: 10-05-2023 End: 06-15-6589Ldfqhijwue tartrate 25 mg Tab 12.5 mg = 0.5 tab(s), Tab, Oral, Start date 10/05/23 9:00:00 AM EDT, 10/03/23 23:33:00 EDT Start Date: 10/05/23 Stop Date: 10/05/23 Status: CompletedStart: 10-01-2023 End: 66-34-5327Ugyvpiijqk Tartrate 50 mg tablet Discontinued 25 MG PO Daily October 01, 2023 3:15pm November 07, 2023 4:12pmStart: 10-01-2023 End: 24-03-1380xfnw 25 mg by mouth once dailyMetoprolol Tartrate Discontinued 25 MG PO Daily October 01, 2023 3:15pm November 07, 2023 4:12pmStart: 10-01-2023 End: 39-83-2998Gkjkoqwxea Tartrate Discontinued MG PO October 01, 2023 12:00am October 01, 2023 3:15pmStart: 09-24-2023 End: 19-84-2435xbbe 1 tablet by mouth in the morningmetoprolol tartrate (Lopressor) 50 MG tablet Take 50 mg by mouth in the morning and 50 mg before bed time. 09/24/2023 ActiveStart: 07-11-2023 End: 49-85-8183wnmiwcvfqi 12.5 mg = 0.5 tab(s), Tab, Oral, Stop date 07/11/23 9:40:25 AM EDT, Start date 07/11/23 9:00:00 AM EDT Start Date: 07/11/23 Stop Date: 07/11/23 Status: CompletedStart: 05-07-2023 End: 35-93-2097ybdn 1 tablet by mouth twice dailyMetoprolol Tartrate 25 mg tablet Discontinued 25 MG PO Twice daily September 03, 2023 4:00pm October 01, 2023 11:31amStart: 05-07-2023 End: 17-14-7848zeon 1 tablet by mouth every twelve hoursmetoprolol tartrate, short acting, (LOPRESSOR) 25 mg tablet Take 1/2 tablet by mouth every 12 hours. 30 tablet 0 05/07/2023 ActiveStart: 04-30-2023 End: 07-31-4816Fxlmguqwmy tartrate 25 mg Tab 12.5 mg = 0.5 tab(s), Oral, BID, # 30 tab(s), Refills(s) 0, Pharmacy:[facility], 170, cm, 07/08/23 22:00:00 EDT, Height/Length Dosing, 83.6, kg, 07/08/23 22:00:00 EDT, Weight Dosing Start Date: 07/11/23 Status: Ordered Medication Dispense Status: Completed Quantity: 30.0 Unit: tab(s) Total Allowed Fills: 1 Fills Dispensed: 0Start: 04-30-2023 End: 35-57-7839wqza 12.5 mg by mouth twice dailyMetoprolol Tartrate Discontinued 12.5 MG PO Twice daily September 03, 2023 3:44pm September 03, 2023 4:02pmStart: 08-04-2022 End: 18-27-1031wiwppoased 25 mg ER Tab 12.5 mg = 0.5 tab(s), Tab-ER, Oral, Start date 08/04/22 9:00:00 EDT, 08/01/22 21:00:00 EDT Start Date: 08/04/22 Stop Date: 08/04/22 Status: CompletedStart: 08-03-2022 End: 75-51-5845kwhaajokct 25 mg ER Tab 12.5 mg = 0.5 tab(s), Oral, Daily, # 30 tab(s), Refills(s) 0, Pharmacy: [facility], 170.2, cm, 08/01/22 17:13:00 EDT, Height/Length Dosing, 83, kg, 08/01/22 17:13:00 EDT, Weight Dosing Start Date: 08/03/22 Status: OrderedStart: 08-02-2022 End: 18-96-4874lynzuuwpiv 25 mg ER Tab 12.5 mg = 0.5 tab(s), Tab-ER, Oral, Start date 08/02/22 9:00:00 EDT, 08/01/22 21:00:00 EDT Start Date: 08/02/22 Stop Date: 08/02/22 Status: CompletedStart: 06-29-2022 End: 34-84-5891orjseevaar 25 mg ER Tab 12.5 mg = 0.5 tab(s), Oral, Daily, # 30 tab(s), Refills(s) 0, Pharmacy: [facility] #[facility], 170, cm, 06/27/22 10:09:00 EDT, Height/Length Dosing, 90, kg, 06/27/22 10:09:00 EDT, Weight Dosing Start Date: 06/29/22 Status: OrderedStart: 06-28-2022 End: 82-47-9911ifdlzlnkcy 25 mg ER Tab 12.5 mg = 0.5 tab(s), Tab-ER, Oral, Start date 06/28/22 9:00:00 EDT, 06/27/22 21:30:00 EDT Start Date: 06/28/22 Stop Date: 06/28/22 Status: CompletedStart: 12-16-2021 End: 94-60-7106fkxmfqmzff 25 mg ER Tab 12.5 mg = 0.5 tab(s), Tab-ER, Oral, Start date 12/16/21 9:00:00 EDT, 12/15/21 18:39:00 EDT Start Date: 12/16/21 Stop Date: 12/16/21 Status: CompletedStart: 12-13-2021 End: 43-50-1365dpokehmvmh 25 mg ER Tab 12.5 mg = 0.5 tab(s), Tab-ER, Oral, Start date 12/13/21 9:00:00 EDT, 12/12/21 7:21:00 EDT Start Date: 12/13/21 Stop Date: 12/13/21 Status: CompletedStart: 12-12-2021 End: 77-25-1254bonrzcckja 25 mg ER Tab 12.5 mg = 0.5 tab(s), Tab-ER, Oral, Start date 12/12/21 9:00:00 EDT, 12/12/21 7:21:00 EDT Start Date: 12/12/21 Stop Date: 12/12/21 Status: CompletedStart: 01-40-6525glid 1 tablet by mouth every twenty- four hours in the morningmetoprolol succinate XL (Toprol-XL) 25 MG 24 hr tablet Take 12.5 mg by mouth in the morning. 12/02/2021 ActiveStart: 12-02-2021 End: 14-56-2244uvkpqkmvwm 25 mg ER Tab 12.5 mg = 0.5 tab(s), Tab-ER, Oral, Start date 12/02/21 9:00:00 EDT, 12/01/21 14:47:00 EDT Start Date: 12/02/21 Stop Date: 12/02/21 Status: CompletedStart: 16-25-2191pxuoshhjkj 25 mg ER Tab 12.5 mg = 0.5 tab(s), Oral, Daily, # 30 tab(s), Refills(s) 0, Pharmacy: [id number], 170.2, cm, 11/30/21 20:21:00 EDT, Height/Length Dosing, 87.4, kg, 11/30/21 20:21:00 EDT, Weight Dosing Start Date: 12/02/21 Status: OrderedStart: 11-24-2021 End: 12-42-4460Gwaosvauyg tartrate 25 mg Tab 25 mg = 1 tab(s), Tab, Oral, Start date 12/01/21 9:00:00 EDT, 11/30/21 23:33:00 EDT Start Date: 12/01/21 Stop Date: 12/01/21 Status: CompletedStart: 08-01-2017 End: 31-64-8331fofx 1 tablet by mouth once dailyMetoprolol Succinate 50 mg tablet extended release 24 hr Discontinued 50 MG PO Daily August 01, 201712:00am January 03, 2019 9:38am End: 23-50-2446nuhwwtkcsm succinate ER (TOPROL XL) 50 mg 24 hr tablettake 0.5 tablet by mouth twice dailyMetoprolol Succinate ER 25 MG 1/2 tablet Orally twice daily for 30 days Activetake 0.5 tablet by mouth twice dailyMetoprolol Tartrate 25 MG Oral Tablet 1/2 tab twice daily Quantity: 90 Refills: 3 Ordered: 06-Oct-2022 Trudy VICTOR, Angélica Activetake 0.5 tablet by mouth once daily Metoprolol Succinate ER 25 MG 1/2 tablet Orally Once a day for 30 days Active Comment on above:Take 1/2 tablet by mouth every 12 hours.24 hr mirabegron 25 mg extended release oral tablet (1 source)beta3-Adrenergic AgonistStart: 84-95-5924tged 1 tablet by mouth once dailyMyrbetriq 25 mg oral tablet, extended release 25 mg = 1 tab(s), Oral, Daily, # 30 tab(s), Refills(s) 3, Pharmacy: [facility] #[facility], 170, cm, 10/27/24 13:34:00 EDT, Height/Length Dosing, 73.4, kg, 10/27/24 13:34:00 EDT, Weight Dosing Start Date: 10/27/24 Status: Ordered Quantity: 30.0 Unit:tab(s) Repeat number: 4montelukast 10 mg oral tablet (20 sources)Leukotriene Receptor AntagonistStart: 01-31-2024 End: 62-78-5601mwsl 1 tablet by mouth once dailyMontelukast 10 mg tablet Discontinued 0 .ROUTE .COMPLEX January 31, 2024 6:28pm February 5:06pm TAKE ONE TABLET BY MOUTH DAILYStart: 06-02-2020 End: 97-62-1246vsjd 1 tablet by mouth once dailymontelukast 10 mg Tab 10 mg = 1 tab(s), Oral, Daily, Refills(s) 0 Start Date: 02/23/21 Status: Ordered Medication Dispense Status: Completed Total Allowed Fills: 1 Fills Dispensed: 0 Comment on above:Take 10 mg by mouth once daily.multivitamin (Theragran) tablet (9 sources)take 1 tablet by mouth in the morningmultivitamin (Theragran) tablet Take 1 tablet by mouth in the morning. ActiveMultivitamin preparation (20 sources)Start: 05-41-3311okyyjngkwjng (MULTIPLE VITAMINS ORAL) Refill(s) 0 04/23/2011 ActiveStart: 15-18-4567iyfcsphcgess (MULTIPLE VITAMINS ORAL) Refill(s) 0 0 04/23/2011 SuspendedStart: 36-02-8538drbdlmvlpfdp (MULTIPLE VITAMINS ORAL) Refill(s) 0 0 04/23/2011 ActiveComment on above: Refill(s) 8Shppmvwppbzx-Reyk-Ohufb Acid (Centrum Complete) 18-400 mg-mcg tablet (16 sources)Start: 83-17-1208wull 1 tablet by mouth once daily Beqsmopupukg-Bnqw-Ezzqk Acid (Centrum Complete) 18-400 mg-mcg tablet Active 1 TAB PO Daily June 27, 2023 11:00pmStart: 00-36-3399vlyc 1 tablet by mouth once pdqfrXdurlvfqjsko-Ogcl-Ausel Acid (Centrum Complete) 18-400 mg-mcg tablet Active 1 TAB PO Daily June 28, 2023 12:00amMultivitamins and Minerals oral tablet (20 sources)Start: 29-05-4579Ybynnxpkifvmz and Minerals oral tablet Refill(s) 0 Start Date: 04/23/11 Status: Ordered Medication Dispense Status: Completed Total Allowed Fills: 1 Fills Dispensed: 0Start: 48-99-9005Kwcqwtpmbgqpo and Minerals oral tablet Refill(s) 0 Start Date: 04/23/11 Status: Ordered Repeat number: 1 Start: 34-22-9388Bvdbjhozckrvu and Minerals oral tablet Refill(s) 0 Start Date: 04/23/11 Status: Orderedmultivitamins with minerals (CEROVITE) LIQD oral liquid (9 sources)Start: 42-45-0554juxt 15 mL by mouth once dailymultivitamins with minerals (CEROVITE) LIQD oral liquid 15 mL by NG Tube route daily. 236 mL 08/25/2023 ActiveNitro Sublingual 0.4 0.4mg (10 sources)Nitro Sublingual 0.4 0.4mg 1 Sublingual Every 5min x3 Active nitrofurantoin, macrocrystals 25 mg / nitrofurantoin, monohydrate 75 mg oral capsule (3 sources)Nitrofuran AntibacterialStart: 83-53-5825gdlx 1 capsule by mouth every twelve hoursNitrofurantoin Monohyd Macro 100 MG 1 capsule with food Orally every 12 hrs for 5 day(s) Jan, Activenitroglycerin 0.4 mg sublingual tablet (20 sources)Nitrate VasodilatorStart: 19-75-9832qfrcvkuyefblb sublingual (NITROQUICK) 0.4 mg SL tablet DISSOLVE 1 TABLET UNDER THE TONGUE NEEDEDFOR CHEST PAIN- MAY REPEAT EVERY 5 MINUTES IF NEEDED ( MAX 3 DOSES.- IF NO RELIEF CALL 911) 0 04/22/2023 ActiveStart: 85-21-5614psdocvcwipfif (NITROSTAT) 0.4 MG sublingual tablet Nitroglycerin Active 0.4 MG SUBLINGUAL Q5M April 30, 2023 1:00am 07/25/2022 ActiveStart: 75-95-3185kqmvxmfcalawo (Nitrostat) 0.[address] 0.4 mg under the tongue every 5 (five) minutes if needed. 07/25/2022 ActiveStart: 68-95-4344Cdbgumecouvmx 0.4 MG Sublingual Tablet Sublingual As directed. Quantity: 25 Refills: 3 Ordered: 25-Jul-2022 Angélica Yates MD Start : 25-Jul-2022 Active newComment on above:DISSOLVE 1 TABLET UNDER THE TONGUE NEEDED FOR CHEST PAIN- MAY REPEAT EVERY 5 MINUTES IF NEEDED (MAX 3 DOSES.- IF NO RELIEF CALL 911)omega 8-mor-htq-fish oil (FISH OIL) 100-160-1,000 mg cap (20 sources)Start: 41-51-2830jlzhr 8-xvp-woc-fish oil (FISH OIL) 100-160-1,000 mg cap Take by mouth. 04/23/2011 ActiveStart: 51-76-7621kveei 9-psg-cxt-fish oil (FISH OIL) 100-160-1,000 mg cap Take by mouth. 0 04/23/2011 SuspendedStart: 93-27-8123yrlcl 1-kht-djg-fish oil (FISH OIL) 100-160-1,000 mg cap Take by mouth. 0 04/23/2011 ActiveComment on above:Take by mouth.[facility] 4-Gad-Xvd-Fish Oil (Fish Oil) 100-160-1,000 mg capsule (20 sources)Start: 58-69-2680Uqvrl 9-Law-Sgv-Fish Oil (Fish Oil) 100-160-1,000 mg capsule Active CAP PO January 22, 2024 1:00amStart: 70-89-0039Wthbb 5-Zlh-Ata-Fish Oil (Fish Oil) 100-160-1,000 mg capsule Active CAP PO January 22, 2024 12:00amStart: 05-30-2023 End: 10-62-3408orwl 100-160 capsules by mouth once dailyOmega 0-Uxh-Vzz-Fish Oil (Fish Oil) 100-160-1,000 mg capsule Discontinued CAP PO Daily May 30, 2023 2:30pm September 03, 2023 2:57pmStart: 05-30-2023 End: 51-43-0092utra 100-160 capsules by mouth once dailyOmega 5-Duz-Kcl-Fish Oil (Fish Oil) 100-160-1,000 mg capsule Discontinued CAP PO Daily May 30, 2023 3:30pm September 03, 2023 3:57pmStart: 58-11-4984zirh 100-160 capsules by mouth once dailyOmega 0-Bne-Ajh-Fish Oil (Fish Oil) 100-160-1,000 mg capsule Active CAP PO Daily May 30, 2023 3:30pmStart: 05-14-2023 End: 35-15-8281Nrbeg 5-Qoy-Udn-Fish Oil (Fish Oil) 100-160-1,000 mg capsule Discontinued CAP PO May 14, 2023 12:00am May 30, 2023 2:30pmStart: 05-14-2023 End: 06-30-0292Qkvng 6-Uti-Okj-Fish Oil (Fish Oil) 100-160-1,000 mg capsule Discontinued CAP PO May 14, 2023 1:00am May 30, 2023 3:30pmoutpatient PT dx left knee hematoma (9 sources)Start: 06-01-8481bpopnmcvcg PT dx left knee hematoma outpatient PT dx left knee hematoma, Print Requisition, Compound Start Date: 11/11/18 Status: OrderedoxyCODONE hydrochloride 1 mg/ml oral solution (2 sources)Opioid AgonistStart: 20-78-7218Djipu: mg, Oral, EVERY 4 HOURS PRN, Starting on 07/29/23 at 1647, Until Discontinued, Severe Pain (mayuri n score 7,8,9,10)phenylephrine hydrochloride 25 mg/ml ophthalmic solution (3 sources)alpha-1 Adrenergic AgonistStart: 09-25-2023 End: 88-69-6513WVLDZNjqbaoxq 2.5 % 1 Drop (AK-DILATE, PUMA-SYNEPHRINE)Start: 05-25-2023 End: 20-82-0664AVLTHPbukqucr 2.5 % 1 Drop (AK-DILATE, PUMA-SYNEPHRINE)Start: 12-27-2021 End: 48-75-6227WPCYESwjodggx 2.5 % 1 Drop (AK-DILATE, PUMA-SYNEPHRINE) polyethylene glycol 3350 02731 mg powder for oral solution (15 sources)Osmotic LaxativeStart: 67-16-6217uastmsaitbbh glycol (MIRALAX) packet Dissolve 1 Packet (17 g total) in 8 ounces of liquid and drinkdaily. 12 Each 3 08/25/2023 ActiveStart: 17-39-673934 g, Oral, DAILY, First dose on Sun07/31/23 at 0900, Until Discontinuedpravastatin sodium 40 mg oral tablet (20 sources)HMG-CoA Reductase InhibitorStart: 01-31-2024 End: 34-99-9882nnah 1 tablet by mouth once dailyPravastatin 40 mg tablet Discontinued 0 .ROUTE .COMPLEX January 31, 2024 6:28pm February 5:06pm TAKE ONE TABLET BY MOUTH DAILYStart: 11-20-2022 End: 55-27-4387lfbn 1 tablet by mouth once daily at bedtimepravastatin 40 mg Tab 40 mg = 1 tab(s), Oral, Daily, at bedtime, Refills(s) 0 Start Date: 10/03/23 St atus: Ordered Medication Dispense Status: Completed Total Allowed Fills: 1 Fills Dispensed: 0Start: 42-94-6673vsfh 1 tablet by mouth at bedtimePravastatin Sodium 20 MG Oral Tablet TAKE 1 TABLET AT BEDTIME. Quantity: 90 Refills: 3 Ordered: 23-Aug-2022 Angélica Yates MD Start : 23-Aug-2022 Active newComment on above:Take 1 tablet by mouth daily at bedtime.proparacaine hydrochloride 5 mg/ml ophthalmic solution (2 sources)Local AnestheticStart: 05-25-2023 End: 28-11-9144uapcujdyubuo 0.5 % 1 Drop (ALCAINE)Start: 12-27-2021 End: 65-13-0495gupkmucfxwoy 0.5 % 1 Drop (ALCAINE)sennosides, jail 8.6 mg oral tablet (20 sources)Start: 07-29-2023 End: 94-68-9769jbiu 1 tablet by mouth once daily as neededsenna (SENOKOT) 8.6 MG tablet Take 1 Tablet by mouth daily as needed. 30 Tablet 08/04/2023 Active spironolactone 25 mg oral tablet (20 sources)Aldosterone AntagonistStart: 06-19-2023 End: 82-63-6780ccjgjdtyyawfzu (ALDACTONE) 25 MG tablet Take 1 Tablet by mouth. 06/19/2023 Activesulfamethoxazole 40 mg/ml / trimethoprim 8 mg/ml oral suspension (10 sources)Dihydrofolate Reductase Inhibitor Antibacterial, Sulfonamide AntimicrobialStart: 65-38-1409trdl 15 mL by mouth once dailymultivitamins with minerals (CEROVITE) LIQD oral liquid 15 mL by NG Tube route daily. 236 mL 08/25/2023 ActiveStart: 90-90-7784ojkj 1 tablet by mouth every twelve hours Bactrim DS 800-160 MG 1 tablet Orally twice a day for 7 day(s) Mar, Activeticagrelor 90 mg oral tablet (20 sources)Start: 72-67-8117xzio 1 tablet by mouth twice dailyticagrelor 90 mg oral tablet 90 mg = 1 tab(s), Oral, BID, # 60 tab(s), Refills(s) 0, Pharmacy: [facility] #[id number], 170.2, cm, 11/23/21 8:42:00 EDT, Height/Length Dosing, 88, kg, 11/23/21 8:42:00 EDT, Weight Dosing Start Date: 11/25/21 Status: Eswwkpu09 hr tolterodine tartrate 2 mg extended release oral capsule (1 source)Cholinergic Muscarinic AntagonistStart: 76-97-6854boia 1 capsule by mouth once dailytolterodine 2 mg Cap-ER 2 mg = 1 cap(s), Oral, Daily, # 30 cap(s), Refills(s) 3, [facility], [facility], cm, 10/27/24 13:34:00 EDT, Height/Length Dosing, 73.4, kg, 10/27/24 13:34:00 EDT,Weight Dosing Start Date: 12/03/24 Status: Ordered Medication Dispense Status: Completed Quantity: 30 .0 Unit: cap(s) Total Allowed Fills: 4 Fills Dispensed: 0tropicamide 10 mg/ml ophthalmic solution (3 sources)AnticholinergicStart: 09-25-2023 End: 90-57-2637hsokxhuqrzf 1 % 1 Drop (MYDRIACYL)Start: 05-25-2023 End: 03-39-6688nsgpuksezeo 1 % 1 Drop (MYDRIACYL)Start: 12-27-2021 End: 70-85-3913tixwglovhog 1 % 1 Drop (MYDRIACYL)TUBE FEED (3 sources)Start: 09-11-0538EH Tube, at 15-45 mL/hr, CONTINUOUS, Starting on Sun08/24/23 at 1330, Until Discontinued, Tube Feeding: With Meal Tray, Specify Diet: Regular, Tube feeding formula: Nutren 1.5, Method of Administration? Pump Start: 08-23-2023 End: 52-92-8449FX Tube, at 15-45 mL/hr, CONTINUOUS, Starting on Sun08/23/23 at 2200, Until Sun08/24/23 at 1237, Tube Feeding: No Meal Tray, Tube feeding formula: Nutren 1.5, Method of Administration? PumpStart: 08-16-2023 End: 60-37-4433CF Tube, at 15-45 mL/hr, CONTINUOUS, Starting on Sun08/16/23 at 1430, Until Sun08/23/23 at 2112, Tube Feeding: No Meal Tray, Tube feeding formula: Impact Peptide 1.5, Method of Administration? Pumpubidecarenone 100 mg / vitamin e 5 unt oral capsule (20 sources)Coenzyme Q10 (Co Q 10) 100 MG CAPS Take by mouth every 24 hours. Activevibegron 75 MG Oral Tablet [Gemtesa] (1 source)Start: 61-04-2330zkct 1 tablet by mouth once dailyGemtesa 75 mg oral tablet 75 mg = 1 tab(s), Oral, Daily, # 30 tab(s), Refills(s) 3, Pharmacy: [facility], 170, cm, 10/27/24 13:34:00 EDT, Height/Length Dosing, 73.4, kg, 10/27/24 13:34:00 EDT, Weight Dosing Start Date: 12/01/24 Status: Ordered Medication Dispense Status: Completed Quantity: 30.0 Unit: tab(s) Total Allowed Fills: 4 Fills Dispensed: 0Vitamin B Complex (20 sources)Vitamin B Complex Orally Daily Activevitamin b12 1 mg oral capsule (20 sources)Vitamin G44Aehnd: 06-28-2023 End: 16-40-9239Dlxzkocdtdoqqh 1000 MCG CAPS Cyanocobalamin (Vitamin B-12) Active 1000 MCG PO Daily June 28, 2023 12:00am 06/28/2023 ActiveVitamin C 250 MG (2 sources)take 1 tablet by mouth twice dailyVitamin C 250 MG 1 tablet Orally twice a day ActiveVitamin D3 2000 Unit (20 sources)Vitamin D3 2000 Unit Orally Daily Activevitamin e 180 mg oral capsule (20 sources)vitamin E 400 UNIT capsule Take by mouth every 24 hours. Active End: 67-48-9995phjl 1 capsule by mouth once dailyVitamin E, dl, acetate, 1,000 unit capsule Take 1,000 Units by mouth once daily. 05/07/2023 Discontinuedtake 1 capsule by mouth every twenty-four hoursVitamin E 400 UNIT 1 capsule Orally Once a day ActiveVitamin E 200 UNIT Oral Capsule Take as directed Quantity: 0 Refills: 0 Ordered: 23-Aug-2022 DO ActiveComment on above:Take 1,000 Units by mouth once daily.Vitamin E 400 UNIT (20 sources)take 1 capsule by mouth once dailyVitamin E 400 UNIT 1 capsule Orally Once a day ActiveWalker misc (20 sources)Start: 61-57-2344Bmoitm misc front wheeled walker dx left knee hematoma, Print Requisition, Compound 11/11/2018 ActiveStart: 17-13-4048Wvonbe misc front wheeled walker dx left knee hematoma, Print Requisition, Compound 0 11/11/2018 SuspendedStart: 62-00-0437Qjxdja misc front wheeled walker dx left knee hematoma, Print Requisition, Compound 0 11/11/2018 ActiveComment on above: front wheeled walker dx left knee hematoma, Print Requisition, CompoundZofran ODT 4 mg Tab-Dis (5 sources)Start: 63-76-0089bqsu 1 tablet by mouth every eight hoursZofran ODT 4 mg Tab-Dis 4 mg = 1 tab(s), Oral, q8hr, # 6 tab(s), Refills(s) 0 Start Date: 03/09/24 Status: Ordered Quantity: 6.0 Unit: tab(s) Repeat number: 1Start: 90-67-1217ohle 1 tablet by mouth every eight hoursZofran ODT 4 mg Tab-Dis 4 mg = 1 tab(s), Oral, q8hr, # 6 tab(s), Refills(s) 0 Start Date: 03/09/24 Status: Ordered Completed/Discontinued Medications MedicationDrug Class(es)DatesSig (Normalized)Sig (Original)acetaminophen 500 mg oral tablet (20 sources)Start: 10-08-2023 End: ,000 mg, Oral, STAT, 1 dose, On Sun10/08/23 at 1831Start: 08-24-2023 End: 47-57-0150vbik 20.3 mL by mouth every six hoursacetaminophen (TYLENOL) 160 MG/5ML liquid Take 20.3 mL by mouth every 6 hours. 59 mL 08/24/2023 09/23/2023 ActiveStart: 08-28-4043nzhk 650 mg by mouth every six kmofe314 mg, Oral, Every 6 hours, First dose (after last modification) on Sun08/17/23 at 1130, Until Disco ntinuedStart: 08-13-2023 End: 04-26-9320387 mg, Oral, EVERY 4 HOURS PRN, Starting on Sun08/13/23 at 0206, Until Sun08/17/23 at 1056, Mild Pain (pain score 1,2,3)Start: 08-04-2023 End: 09-94-9923gwmo 1-2 tablets by mouth every six hours as neededacetaminophen (TYLENOL) 325 mg tablet Take 1 to 2 Tablets by mouth every 6 hours as needed for up to 7 days. 56 Tablet 08/04/2023 08/11/2023 ActiveStart: 98-12-0193pfnq 650 mg by mouth every six mg, Oral, Every 6 hours, First dose on Sun07/29/23 at 1718, Until DiscontinuedStart: 22-22-0804sghk 1 capsule by mouth every six hours as neededAcetaminophen 325 mg capsule Active 325 MG PO Every 6 hours as needed May 30, 2023 12:00amStart: 05-14-2023 End: 62-96-8824wsnu 1 tablet by mouth every six hours as neededAcetaminophen 500 mg tablet Discontinued 1 TAB PO Every 6 hours May 14, 2023 1:00am May 30, 2023 3:26pm FreeTextSi tablet as needed Orally every 6 hrs; Note: Source Status: Taking; Provider: Michael Yip ( )Start: 32-24-8415acqn 2 tablets enteral route every four hours as neededacetaminophen (TYLENOL) 325 mg tablet 2 tablets by ORAL/FEEDING TUBE route every 4 hours as needed for pain. 0 05/07/2023 ActiveStart: 63-65-7268ujff 2 tablets by mouth every six hours as needed for painacetaminophen 325 mg Tab 650 mg = 2 tab(s), Oral, q6hr, PRN Pain, Refills(s) 0 Start Date: 06/29/22 Status: Ordered Medication Dispense Status: Completed Total Allowed Fills: 1 Fills Dispensed: 0 Start: 99-34-3483331 mg, Oral, EVERY 4 HOURS PRN, Pain Mild (1-3), Fever, For temp greater than 100.5 F (38 C), Starting 12/14/18 at 2314 Maximum dose of acetaminophen is 4000 mg from all sources in 24 hours.take 1 tablet by mouth every six hoursAcetaminophen 500 MG 1 tablet as needed Orally every 6 hrs Active Comment on above:2 tablets by ORAL/FEEDING TUBE route every 4 hours as needed for pain.acetaminophen 325 mg / HYDROcodone bitartrate 5 mg oral tablet (20 sources)Opioid AgonistStart: 01-21-2019 End: 70-05-7406gkkt 1 tablet by mouth every four to six hours as needed for pain Hydrocodone-Acetaminophen (Petal) 5-325 mg tablet Discontinued 1 TAB PO EVERY 4- 6 HOURS as needed for pain 40 7 January 21, 2018August 29, 2019 1:54pm Acetaminophen Extra Strength TABS (6 sources)Acetaminophen Extra Strength TABS 650 MG NEEDED Quantity: 0 Refills: 0 Ordered: 22-Dec-2021 DO ActiveALPRAZolam 0.25 mg oral tablet (20 sources)BenzodiazepineStart: 04-23-2023 End: 31-52-7993gsyr 1 tablet by mouth twice daily as needed for anxiety Alprazolam 0.25 mg tablet Discontinued 0.25 MG PO Twice daily as needed for anxiety 10 5 June 25, 2023 11:08am July 03, 2023 9:54amStart: 04-23-2023 End: 42-82-5949ehmd 1 tablet by mouth every twelve hoursALPRAZolam (XANAX) 0.25 mg tablet Take 1 tablet by mouth every 12 hours. 0 04/23/2023 ActiveComment on above:Take 1 tablet by mouth every 12 hours.amoxicillin 500 mg oral capsule (3 sources)Penicillin-class AntibacterialStart: 36-32-4137jgzt 4 capsules by mouth every hourAmoxicillin 500 MG Oral Capsule TAKE FOUR CAPSULES BY MOUTH ONE HOUR PRIOR TO APPOINTMENT Quantity:16 Refills: 0 Ordered: 17-Mar-2022 DO Start : 12-Jan-2022 Activeamoxicillin 875 mg / clavulanate 125 mg oral tablet (20 sources)Penicillin-class AntibacterialStart: 02-18-2024 End: 68-65-2202lrlb 1 tablet by mouth every twelve hoursAmoxicillin-Pot Clavulanate 875-125 mg tablet Discontinued 1 TAB PO Every 12 hours 14 February 18, 2024 1:00am March 21, 2024 11:22amStart: 10-08-2023 End: Tablet, Oral, STAT, 1 dose, On 10/08/23 at 2024Start: 10-06-2023 End: 54-23-3781nlho 1 tablet by mouth every twelve hoursAugmentin 875 mg oral tablet = 1 tab(s), Oral, q12hr, X 7 day(s), # 14 tab(s), Refills(s) 0, Pharmacy: [facility], 170, cm, 10/03/23 17:35:00 EDT, Height/Length Dosing, 88.9, kg, 10/03/23 17:35:00 EDT, Weight Dosing Start Date: 10/06/23 Stop Date: 10/13/23 Status: OrderedStart: 07-04-2023 End: 79-14-7055bbfvbtqrqqd-clavulanate potassium (AUGMENTIN) 875-125 mg per tabletStart: 07-04-2023 End: 24-99-1504xqmd 1 tablet by mouth every twelve hoursAmoxicillin-Pot Clavulanate 875-125 mg tablet Discontinued 1 TAB PO Every 12 hours 14 7 June 12:00am September 03, 2023 3:52pmapixaban 5 mg oral tablet (20 sources)Factor Xa InhibitorStart: 08-23-2022 End: 20-67-3293fqvs 1 tablet by mouth twice dailyApixaban (Eliquis) 5 mg tablet Discontinued 5 MG PO Twice daily April 30, 2023 1:00am May 14, 2023 2:15pmStart: 84-08-8778jjdz 2 tablets by mouth twice dailyEliquis 2.5 mg oral tablet 5 mg = 2 tab(s), Oral, BID, # 60 tab(s), Refills(s) 5, Pharmacy: [id number], 170.2, cm, 08/01/22 17:13:00 EDT, Height/Length Dosing, 83, kg, 08/01/22 17:13:00 EDT, Weight Dosing Start Date: 08/04/22 Status: Ordered Start: 06-29-2022 End: 87-30-3085noip 2 tablets by mouth twice daily, then take 2 tablets by mouth twice daily, then take 1 tablet by mouth twice daily, then take 2.5 mg by mouth twice dailyapixaban 5 mg oral tablet 10 mg = 2 tab(s), Oral, BID, 10mg BID x5days, followed by 5mg BID x 6mthsthen decrease to 2.5mg BID indef., X 30 day(s), # 60 tab(s), Refills(s) 0, Pharmacy: [facility], 170, cm, 06/27/22 10:09:00 EDT, Height/Length Dosing, 90, kg, 04... Start Date: 06/29/22 Stop Date: 07/29/22 Status: Orderedascorbic acid 250 mg oral tablet (20 sources)Vitamin CStart: 10-01-2023 End: 69-23-2756jxqy 1 tablet by mouth once dailyAscorbic Acid (Vitamin C) 250 mg tablet Discontinued 250 MG PO Daily October 01, 2023 12:00am 2023 4:11pm End: 53-98-4112vrit 250 mg by mouth every twelve hoursAscorbic Acid 250 MG CHEW Take by mouth every 12 hours. Activetake 1 tablet by mouth every twelve hours Vitamin C 250 MG 1 tablet Orally twice a day Activeaspirin 81 mg delayed release oral tablet (20 sources)Platelet Aggregation Inhibitor, Nonsteroidal Anti-inflammatory Drug Start: 05-14-2023 End: 15-14-1548dscu 1 tablet by mouth once dailyAspirin 81 mg tablet,delayed release (DR/EC) Discontinued 81 MG PO Daily May 14, 2023 1:00am September 03, 2023 3:55pmStart: 07-00-1807rfpk 1 tablet by mouth once dailyaspirin 81 mg chewable tablet 1 tablet by ORAL/FEEDING TUBE route once daily. 90 tablet 1 05/08/2023 ActiveStart: 11-23-2021 End: 03-38-9591seew 1 tablet by mouth once dailyaspirin 81 mg Chew Tab 81 mg = 1 tab(s), Oral, Daily, # 30 tab(s), Refills(s) 0 Start Date: 06/08/23Status: Orderedtake 1 tablet by mouth every twelve hoursAspirin 81 MG 1 tablet Orally bid ActiveBaby Aspirin m-w- ActiveComment on above:1 tablet by ORAL/FEEDING TUBE route once daily.atorvastatin 40 mg oral tablet (20 sources)HMG-CoA Reductase InhibitorStart: 67-15-2014dvag 40 mg by mouth at dtmlcow44 mg, Oral, AT BEDTIME, First dose on Sun08/13/23 at 2200, Until DiscontinuedStart: 56-42-2223ddiv 10 mg by mouth once daily10 mg, Oral, DAILY, First dose (after last modification) on Sun08/01/23 at 0900, Until Discontinued Start: 11-25-2021 End: 56-97-7487rwis 80 mg by mouth once daily80 mg, Oral, DAILY, First dose on Sun07/30/23 at 1200, Until DiscontinuedComment on above:Take 80 mg by mouth. baclofen 5 mg oral tablet (20 sources)gamma-Aminobutyric Acid-ergic AgonistStart: 03-26-2024 End: 20-57-9897rblv 1 tablet by mouth every twelve hoursBaclofen 5 mg tablet Discontinued 5 MG PO Q12H 60 30 March 26, 2024 6:09pm May 21, 2024 3:20 pmStart: 07-09-2023 End: 61-64-6393ojyh 0.5 tablet by mouth once dailyBaclofen 10 mg tablet Discontinued 0 .ROUTE .COMPLEX 14 July 09, 2023 5:13pm September 03, 2023 3:56pm TAKE 1/2 TABLET BY MOUTH DAILYStart: 58-90-6090fpyuhrxo (LIORESAL) 10 mg tablet Baclofen Baclofen Active 5 MG Oral Daily at bedtime August 01, 20173:16pm 08-01-2017 [facility] ([id number]) 08/01/2017 ActiveStart: 08-01-2017 End: 49-96-8446rbzkmuxu (LIORESAL) 10 mg tablet Baclofen Baclofen Active 5 MG Oral Daily at bedtime August 01, 20173:16pm 08-01-2017 [facility] ([id number]) 0 08/01/2017 ActiveStart: 08-01-2017 End: 38-96-6423ixph 5 mg by mouth once daily at bedtimeBaclofen 10 mg tablet Discontinued 5 MG PO Daily at bedtime August 01, 2017 12:00am July 09, 2023 5:13pmStart: 08-01-2017 End: 83-76-9350bgko 5 mg by mouth once daily at bedtimeBaclofen Discontinued 5 MG PO Daily at bedtime August 01, 2017 12:00am July 09, 2023 5:13pmStart: 24-86-7013bppsvvxe 5 mg, Oral, Bedtime, 1/2 of a 10 mg tab, Refills(s) 0 Start Date: 07/13/17 Status: Orderedtake 0.5 tablet by mouth once dailyBaclofen 10 mg 1/2 tablet Orally Daily for 90 days ActiveComment on above:Baclofen Baclofen Active 5 MG Oral Daily at bedtime August 01, 2017 3:16pm 08-01-2017 [facility] ([id number])benzonatate 200 mg oral capsule (20 sources)Non-narcotic AntitussiveStart: 09-03-2023 End: 79-57-2282Qcqiaztjpbk 200 mg capsule Discontinued 200 MG PO 2-3 TIMES PER DAY as needed September 03, 2023 12:00am October 01, 2023 11:33amStart: 07-11-2023 End: 20-05-6089mmwg 1 capsule by mouth three times daily as needed for cough benzonatate (TESSALON) 200 MG capsule TAKE 1 CAPSULE BY MOUTH THREE TIMES DAILY FOR 10 DAYS NEEDED FOR COUGH 07/11/2023 Activebisacodyl 5 mg delayed release oral tablet (2 sources)Stimulant LaxativeStart: 50-36-5263prev 10 mg by mouth once daily as qehtio81 mg, Oral, DAILY PRN, Starting on Sun08/13/23 at 0206, Until Discontinued, ConstipationStart: 71-19-3630fjriidh carbonate 1250 mg oral tablet (20 sources)Start: 10-01-2023 End: 35-49-6741Rulaqbx Carbonate (Oyster Shell Calcium 500) 500 mg calcium (1,250 mg) tablet Discontinued MG PO October 01, 2023 12:00am November 07, 2023 4:11pmcalcium, elemental, (OSCAL,) 500 MG tablet Take by mouth every 24 hours. Activetake 1 tablet by mouth every twenty-four hoursCalcium 500 MG 1 tablet with meals Orally daily Activetake 1 tablet by mouth every twelve hoursCalcium 500 MG 1 tablet with meals Orally Twice a day Activecalcium chloride 0.0014 meq/ml / potassium chloride 0.004 meq/ml / sodium chloride 0.103 meq/ml / sodium lactate 0.028 meq/ml injectable solution (1 source)Start: 08-18-2023 End: [id number], at 50 mL/hr, CONTINUOUS, Starting on 08/18/23 at 0200, Until Sun08/20/23 at 0840ceFAZolin 2000 mg injection (1 source)Cephalosporin AntibacterialStart: 08-14-2023 End: ,000 mg, Intravenous, EVERY 8 HOURS ANTIBIOTIC, 3 doses, First dose on Sun08/14/23 at 1730, Last dose on Sun08/15/23 at 0600cefTRIAXone (ROCEPHIN) 1,000 mg in sodium chloride 9.6 mL IV push (1 source)Start: 01-11-2025 End: ,000 mg, Intravenous, Once, 1 dose, On 01/11/25 at 1112 clopidogrel 75 mg oral tablet (20 sources)P2Y12 Platelet InhibitorStart: 12-29-2021 End: 61-86-8575sktw 1 tablet by mouth once dailyClopidogrel 75 mg tablet Discontinued 75 MG PO Daily April 30, 2023 1:00am May 14, 2023 2:22pm Comment on above:Take 75 mg by mouth.cyclobenzaprine hydrochloride 10 mg oral tablet (20 sources)Muscle RelaxantStart: 12-11-2023 End: 87-56-9675iwrx 1 tablet by mouth three times daily as needed for muscle spasmsCyclobenzaprine 10 mg tablet Discontinued 0 .ROUTE .COMPLEX December 11, 2023 12:06pm January 21, 2024 3:59pm TAKE ONE TABLET BY MOUTH THREE TIMES A DAY NEEDED FOR SPASMStart: 11-02-2023 End: 56-12-0344kimz 1 tablet by mouth three times daily as needed for muscle spasmscyclobenzaprine 10 mg Tab 10 mg = 1 tab(s), Oral, TID, PRN for spasm, # 30 tab(s), Refills(s) 0, Pharmacy: [facility] 1155, 170, cm, 10/16/23 15:59:00 EDT, Height/Length Dosing, 88, kg, 10/15/2414:59:00 EDT, Weight Dosing Start Date: 11/02/23 Status: Ordered Quantity: 30.0 Unit: tab(s) Repeat number: 1 diphenhydrAMINE hydrochloride 25 mg oral tablet (1 source)Histamine-1 Receptor AntagonistStart: 12-15-2018 End: 50-71-6908bjbmsgopizGDWAW (BENADRYL) tablet 25 mgStart: 12-15-2018 End: 55-11-5390grjifgaxqdIWFBU (BENADRYL) tablet 25 mg0.3 ml enoxaparin sodium 100 mg/ml prefilled syringe (2 sources)Low Molecular Weight HeparinStart: 14-83-1447qdtfje 30 mg by subcutaneous injection twice daily30 mg, Subcutaneous, 2 TIMES DAILY, First dose on Sun07/31/23 at 2200, Until DiscontinuedStart: 02-18-4239ahsjue 40 mg by subcutaneous injection once daily40 mg, Subcutaneous, DAILY, First dose on 12/15/18 at 0900erythromycin 0.005 mg/mg ophthalmic ointment (15 sources)Macrolide, Macrolide AntimicrobialStart: 10-01-2023 End: 65-32-0798Jkfawhnyrtnv 5 mg/gram (0.5 %) ointment Discontinued OPHTHALMIC October 01, 2023 12:00am November 07, 2023 4:12pmStart: 09-18-2023 End: 74-41-3483hnqtumnrespe (ROMYCIN) 5 mg/gram (0.5 %) ophthalmic ointment Use 1 application in the left eye daily at bedtime for 7 days. 3.5 g 0 09/18/2023 09/25/2023 Active2 ml fentaNYL 0.05 mg/ml injection (1 source)Opioid AgonistStart: 08-15-2023 End: 72-58-3161Zbmopcvumtt Push, PRN, Starting on Sun08/15/23 at 1514, Until Sun08/15/23 at 1514, Intra ProcedureFish Oil 1000 MG Oral Capsule Delayed Release (6 sources)Start: 13-27-2100jwjx 1-2 tablets by mouth once dailyFish Oil 1000 MG Oral Capsule Delayed Release 1-2 tabletes daily Quantity: 90 Refills: 3 Ordered: 22-Dec-2021 Angélica Yates MD Start : 22-Dec-2021 ActiveFish Oil OIL (3 sources)Fish Oil OIL USE DIRECTED. Quantity: 0 Refills: 0 Ordered: 22-Dec-2021 DO Vfqkyk78 hr guaiFENesin 600 mg extended release oral tablet (20 sources)Start: 09-03-2023 End: 80-59-2296dstl 1 tablet by mouth twice daily, then take 1 tablet by mouth every twelve hoursGuaifenesin (Mucinex) 600 mg tablet extended release 12hr Discontinued 600 MG PO Twice daily September 03, 2023 12:00am October 01, 2023 11:32amStart: 16-05-8889feuz 1200 mg by mouth twice daily1,200 mg, Oral, 2 TIMES DAILY, First dose on Angely 08/02/23 at 1030, Until DiscontinuedStart: 07-11-2023 guaifenesin (MUCINEX) 600 MG SR tablet Take 1,200 mg by mouth. 07/11/2023 Active 1 ml haloperidol 5 mg/ml prefilled syringe (3 sources)Typical AntipsychoticStart: 08-16-2023 End: 20-09-3499ysjnzf 1 dose by intramuscular injection once5 mg, Intramuscular, ONCE, 1 dose, On Sun08/16/23 at 1100Start: 08-16-2023 End: dose, Starting on Sun08/16/23 at 1033, Until Sun08/16/23 at 1100 Start: 07-31-2023 End: 47-58-4402vdxccf 1 dose by intramuscular injection once5 mg, Intramuscular, ONCE, 1 dose, On Sun07/31/23 [place] 82412 ml hydrALAZINE hydrochloride 20 mg/ml injection (4 sources)Arteriolar VasodilatorStart: 08-15-2023 End: 30-61-5257rigw 1 dose intravenously once10 mg, Intravenous Push, ONCE, 1 dose, On Sun08/15/23 at 2030Start: 07-30-2023 End: 27-10-9456srot 1 dose intravenously once5 mg, Intravenous Push, ONCE, 1 dose, On Sun07/30/23 at 1930, PACU NowStart: 07-30-2023 End: 34-06-3337dgut 10 mg intravenously every six hours as kyjumb59 mg, Intravenous Push, EVERY 6 HOURS PRN, Starting on Sun07/30/23 at 1847, Until Sun08/02/23 at 0955, Other, for SBP > 180Start: 07-29-2023 End: 83-28-3152pafkse 10 mg intravenously oncehydrALAZINE 20 mg/mL Inj 10 mg = 0.5 mL, Injection, IV Push, Once, Stop date 07/29/23 12:23:58 PM EDT, STAT, Start date 07/29/23 12:19:00 PM EDT, 07/29/23 12:19:00 EDT Start Date: 07/29/23 Stop Date: 07/29/23 Status: CompletedhydroCHLOROthiazide 12.5 mg / valsartan 160 mg oral tablet (20 sources)Thiazide Diuretic, Angiotensin 2 Receptor BlockerStart: 08-01-2017 End: 55-01-8854thnc 1 tablet by mouth once dailyValsartan-Hydrochlorothiazide 160-12.5 mg tablet Discontinued 1 TAB PO Daily August 01, 2017 12:00amOct2018 9:38amiohexol (OMNIPAQUE) 350 MG/ML injection (1 source)Start: 08-15-2023 End: 11-89-0701335 mL, Other, Once at Radiology exam, 1 dose, Starting on Sun08/15/23 at 1602, Until Sun08/15/23 at 1602, Imaging Protocol Orderslabetalol hydrochloride 5 mg/ml injectable solution (3 sources)beta-Adrenergic BlockerStart: 08-15-2023 End: 77-30-2076qrsw 1 dose intravenously once10 mg, Intravenous Push, ONCE, 1 dose, On Sun08/15/23 at 1830Start: 08-14-2023 End: 83-89-5623itzb 10 mg intravenously every six hours as lncoip28 mg, Intravenous Push, EVERY 6 HOURS PRN, Starting on Sun08/14/23 at 0817, Until Sun08/17/23 at 1056, for SBP > 160Start: 08-13-2023 End: 73-99-2355fvdj 1 dose intravenously once20 mg, Intravenous Push, ONCE, 1 dose, On Sun08/13/23 at 1900labetalol 5 mg/mL IV Rizwana (1 source)Start: 05-03-2023 End: 54-42-1045ppqtgx 10 mg intravenously oncelabetalol 5 mg/mL IV Rizwana 10 mg = 2 mL, Injection, IV Push, Once, Stop date 05/03/23 10:24:57 AM EST,STAT, Start date 05/03/23 10:11:00 AM EST, 05/03/23 10:11:00 EST Start Date: 05/03/23 Stop Date: 05/03/23 Status: CompletedlevETIRAcetam (KEPPRA) 750 mg in dextrose 5 % 100 mL ivpb (1 source)Start: 07-29-2023 End: 33-28-0138057 mg, Intravenous, EVERY 12 HOURS, 14 doses, First dose on 07/29/23 at 1454, Last dose on 08/05/23 at 0254, at 400 mL/hrlidocaine hydrochloride 0.02 mg/mg topical gel (20 sources)Antiarrhythmic, Amide Local AnestheticStart: 01-03-2019 End: 98-12-9613Tzokkwflz Hcl 2 % jelly Discontinued 1 APPLIC TOPICAL Daily 30 January 03, 2019 12:00am August 29, 2019 1:54pm apply to wounds with dressingslosartan potassium 50 mg oral tablet (20 sources)Angiotensin 2 Receptor BlockerStart: 07-16-2023 End: 02-13-6456Ddaqkktk 100 mg tablet Discontinued 50 MG PO Every morning July 16, 2023 3:11pm July 17, 2023 12:46pmStart: 07-16-2023 End: 94-49-9096uggd 50 mg by mouth once daily in the morningLosartan Discontinued 50 MG PO Every morning July 16, 2023 3:11pm July 17, 2023 12:46pm Start: 07-11-2023 End: 55-34-4239jphfkiqq (COZAAR) 50 MG tablet Take 50 mg by mouth. 07/11/2023 ActiveStart: 12-02-2021 End: 16-48-1983nhqdsbbo 50 mg Tab 100 mg = 2 tab(s), Tab, Oral, Start date 12/02/21 9:00:00 EDT, 11/30/21 23:33:00EDT Start Date: 12/02/21 Stop Date: 12/02/21 Status: CompletedStart: 01-03-2019 End: 66-02-0344fhoa 1 tablet by mouth once daily in the morning for hypertension losartan (Cozaar) 100 MG tablet TAKE 1 TABLET BY MOUTH EVERY MORNING for hypertension 05/14/2023 ActiveStart: 99-48-5198fnkh 100 mg by mouth once daily 100 mg, Oral, DAILY, First dose on 12/15/18 at 1430Start: 10-01-2017 End: 50-57-0354tspv 1 tablet by mouth every twenty-four hoursLosartan Potassium 100 MG 1 tablet Orally Once a day for 90 days Sep, Activetake 1 tablet by mouth every twenty-four hoursLosartan Potassium 25 MG 1 tablet Orally Once a day for 30 days ActiveComment on above:Take 100 mg by mouth once daily.Magnesium (6 sources)take 1 tablet by mouth once dailyMagnesium 400 MG Oral Tablet 1 TAB DAILY Quantity: 0 Refills: 0 Ordered: 22-Dec-2021 DO Activemagnesium hydroxide 80 mg/ml oral suspension (1 source)Start: 68-82-1181tuyh 30 mL by mouth once daily as mL, Oral, DAILY PRN, Starting on Sun08/01/23 at 1104, Until Discontinued, Ofaneaqjvdoy85 ml magnesium sulfate 40 mg/ml injection (8 sources)Start: 08-22-2023 End: g (2,000 mg), Intravenous, ONCE, 1 dose, On Sun08/22/23 at 1900 Start: 08-20-2023 End: g (2,000 mg), Intravenous, ONCE, 1 dose, On Sun08/20/23 at 1900 Start: 08-18-2023 End: 44,000 mg, Intravenous, ONCE, 1 dose, On Sun08/18/23 at 1130Start: 08-16-2023 End: g (2,000 mg), Intravenous, ONCE, 1 dose, On Sun08/17/23 at 0530 Start: 08-14-2023 End: g (2,000 mg), Intravenous, ONCE, 1 dose, On Sun08/14/23 at 1700, at 50 mL/hrStart: 07-31-2023 End: g (2,000 mg), Intravenous, ONCE, 1 dose, On Sun07/31/23 at 0730 methocarbamol 500 mg oral tablet (1 source)Muscle RelaxantStart: 10-08-2023 End: 24-63-8114rihj 1 dose by mouth pdkq199 mg, Oral, ONCE, 1 dose, On Sun10/08/23 at 202Start: 10-08-2023 End: 87-96-5510qcns 1 dose by mouth qdlx193 mg, Oral, ONCE, 1 dose, On Sun10/08/23 at 2022methylPREDNISolone 4 mg oral tablet (5 sources)CorticosteroidStart: 17-73-9714Maxzdv (Etienne) 4 MG as directed Orally daily for 6 days 10 Mar, 2022 Not-Takingmetoprolol (LOPRESSOR) split tablet (1 source)Start: 00-65-2987aege 12.5 mg by mouth twice daily12.5 mg, Oral, 2 TIMES DAILY, First dose on 07/30/23 at 1630, Until Discontinuedmidazolam 1 mg/ml injectable solution (1 source)BenzodiazepineStart: 08-15-2023 End: 57-45-2007Pjurbjxbtzb Push, PRN, Starting on Sun08/15/23 at 1514, Until Sun08/15/23 at 1527, Intra Procedure1 ml morphine sulfate 2 mg/ml cartridge (2 sources)Opioid AgonistStart: 07-29-2023 End: 34-22-1725ldyh 1 dose intravenously once2 mg, Intravenous Push, ONCE, 1 dose, On 07/29/23 at 1422Start: 14-85-0935uvssmlgg injection 2 mgMulti Vitamin TABS (6 sources)Multi Vitamin TABS TAKE 1 TABLET DAILY. Quantity: 0 Refills: 0 Ordered: 22-Dec-2021 DO Activeondansetron 4 mg disintegrating oral tablet (14 sources)Serotonin-3 Receptor AntagonistStart: 09-03-2023 End: 59-90-1328akwh 1 tablet by mouth twice daily as neededOndansetron 4 mg tablet,disintegrating Discontinued 4 MG PO Twice daily as needed September 03, 2023 12:00am October 01, 2023 11:31am24 hr oxybutynin chloride 5 mg extended release oral tablet (9 sources)Cholinergic Muscarinic AntagonistStart: 01-21-2024 End: 78-04-9472tive 1 tablet by mouth every twenty-four hours in the evening Oxybutynin Chloride 5 mg tablet extended release 24hr Discontinued 5 MG PO .PM 30 January 1:00am May 21, 2024 3:23pmpiperacillin-tazobactam (ZOSYN) 3.375 g in dextrose 5 % 50 mL IVPB extended infusion (mini-bag) (1 source)Start: 12-15-2018 End: 12-18-20183.375 g, Intravenous, EVERY 8 HOURS, First dose on 12/15/18 at 0100, Until Discontinuedpotassium chloride 1.33 meq/ml oral solution (15 sources)Start: 08-17-2023 End: 16-27-5948vudl 1 dose by mouth once20 mEq, Oral, ONCE, 1 dose, On Sun08/17/23 at 1130Start: 08-17-2023 End: 21-43-704183 mEq, Intravenous, ONCE, 1 dose, On Sun08/17/23 at 1130, at 50 mL/hrStart: 07-31-2023 End: 49-85-6705fkih 1 dose by mouth once40 mEq, Oral, ONCE, 1 dose, On Sun07/31/23 at 0730Start: 04-13-5361tpxg 2 tablets by mouth oncepotassium chloride 20 mEq ER Tab 40 mEq = 2 tab(s), Oral, Once, Refills(s) 0 Start Date: 08/04/22 Status: Orderedpotassium phosphate 15 mmol injection in D5W (4 sources)Start: 08-20-2023 End: mmol, Intravenous, ONCE, 1 dose, On Sun08/20/23 at 0130Start: 08-17-2023 End: mmol, Intravenous, ONCE, 1 dose, On Sun08/17/23 at 0530Start: 08-14-2023 End: mmol, Intravenous, ONCE, 1 dose, On Sun08/14/23 at 1700Start: 07-31-2023 End: mmol, Intravenous, ONCE, 1 dose, On Sun07/31/23 at 0730 predniSONE 20 mg oral tablet (18 sources)Start: 09-03-2023 End: 40-20-1350zjoj 1 tablet by mouth once dailyPrednisone 20 mg tablet Discontinued 20 MG PO Daily September 03, 2023 12:00am October 01, 2023 11:28am Start: 50-89-3752szcq 3 tablets by mouth every twenty-four hourspredniSONE 20 MG 3 tablet Orally Once a day for 5 day(s) Mar, Activerivaroxaban 15 mg oral tablet (20 sources)Factor Xa InhibitorStart: 08-01-2017 End: 79-37-8825glvr 1 tablet by mouth twice dailyRivaroxaban (Xarelto) 15 mg tablet Discontinued 15 MG PO Twice daily August 01, 2017 12:00am 2018 9:38amSennosides (9 sources)Start: 05-30-2023 End: 65-64-9206hail 8.6 mg by mouth once dailySennosides Discontinued 8.6 MG PO Daily May 30, 2023 12:00am October 01, 2023 11:30amStart: 61-29-2250acjw 8.6 mg by mouth once dailySennosides Active 8.6 MG PO Daily May 30, 2023 12:00am Sennosides 8.6 mg tablet (9 sources)Start: 05-30-2023 End: 71-32-4372cgrh 1 tablet by mouth once dailySennosides 8.6 mg tablet Discontinued 8.6 MG PO Daily May 30, 2023 12:00am October 01, 2023 11:30am Start: 05-30-2023 End: 81-49-7322eyzx 1 tablet by mouth once dailySennosides 8.6 mg tablet Discontinued 8.6 MG PO Daily May 29, 2023 11:00pm October 01, 2023 10:30am sertraline 25 mg oral tablet (20 sources)Serotonin Reuptake InhibitorStart: 06-22-2023 End: 19-14-3539fepa 1 tablet by mouth once dailySertraline 25 mg tablet Discontinued 25 MG PO Daily June 22, 2023 10:22am June 25, 2023 11:94hg3866 ml sodium chloride 9 mg/ml injection (8 sources)Start: 08-13-2023 End: 33-91-7198Ifstrmrlszt, at 75 mL/hr, CONTINUOUS, Starting on Angely 08/16/23 at 0930, Until Sun08/17/23 at 1056Start: 08-12-2023 End: 87-60-4187QZV CONTINUOUS, Starting on 08/12/23 at 1916, Until 08/12/23 at 1916Start: 68-96-2741oxscqy chloride (OCEAN) 0.65 % nasal spray 1 sprayStart: 66-62-0432wlpx 1 mL intravenous route every hourIntravenous, at 100 mL/hr, CONTINUOUS, Starting 12/14/18 at 2330 Maintenance IV fluid order, if a bolus IV fluid order is present, begin this order after the bolus is complete.Start: 02-77-062051 mL, Intravenous, EVERY 12 HOURS SCHEDULED (2 times per day), First dose on 12/14/18 at 2330Start: 37-67-3991ebau 10 mL intravenous route once as vvforv20 mL, Intravenous, PRN, Line Care, After every IV line use, Starting 12/14/18 at 2314sodium phosphate 15 mmol injection in D5W (1 source)Start: 08-18-2023 End: mmol, Intravenous, ONCE, 1 dose, On 08/18/23 at 1130 stavudine 15 mg oral capsule (1 source)Human Immunodeficiency Virus Nucleoside Analog Reverse Transcriptase Inhibitor End: 26-11-7872wotu 1 capsule by mouth every twelve hoursstavudine (ZERIT) 15 MG capsule Take 15 mg by mouth every 12 hours 0 12/15/2018 Discontinued (ERROR) tamsulosin hydrochloride 0.4 mg oral capsule (1 source)alpha-Adrenergic BlockerStart: 08-13-2023 End: 57-39-5169hnzm 0.4 mg by mouth once daily0.4 mg, Oral, DAILY, First dose on Sun08/13/23 at 1300, Until Discontinuedthiamine hydrochloride 100 mg/ml injectable solution (1 source)Start: 08-16-2023 End: mg, Intravenous Push, DAILY, 5 doses, First dose on Angely 08/16/23 at 1430, Last dose on Sun08/20/23 at 0900traMADol hydrochloride 50 mg oral tablet (20 sources)Opioid AgonistStart: 11-07-2023 End: 03-75-2009isbt 1 tablet by mouth once dailyTramadol 50 mg tablet Discontinued 50 MG PO Daily December 06, 2023 1:11pm December 10, 2023 9 :14amStart: 11-02-2023 End: 80-95-9651pmxn 1 tablet by mouth every four hours as needed for pain traMADOL 50 mg Tab 50 mg = 1 tab(s), Oral, q4hr, PRN as needed for pain, # 90 tab(s), Refills(s) 0,Pharmacy: [facility], 170, cm, 10/16/23 15:59:00 EDT, Height/Length Dosing, 88, kg, 10/16/23 15:59:00 EDT, Weight Dosing Start Date: 11/02/23 Status: Ordered Medication Dispense Status: Completed Quantity: 90.0 Unit: tab(s) Total Allowed Fills: 1 Fills Dispensed: 0 End: 82-31-0052pjjhunhu (ULTRAM) 50 MG tablet 08/24/2023 Discontinued triamcinolone acetonide 40 mg/ml injectable suspension (20 sources)CorticosteroidStart: 24-47-1352Milohnd-40 Feb, 60 mg ubidecarenone 10 mg oral capsule (20 sources)Start: 05-30-2023 End: 47-63-6676Dhlzrzmr Q10 10 mg capsule Discontinued 10 MG PO Daily May 30, 2023 12:00am September 03, 2023 3:53pmStart: 99-42-5905qpjo 1 capsule by mouth once dailyCo-Enzyme Q10 100 MG Oral Capsule TAKE 1 CAPSULE Daily Quantity: 90 Refills: 3 Ordered: 08-Yzr-8033Uwheecr MD, Hassan Start : 23-Aug-2022 Active take 1 capsule by mouth in the morningco-enzyme Q-10 30 MG capsule Take 30 mg by mouth in the morning. Activevalsartan 160 mg oral tablet (12 sources)Angiotensin 2 Receptor Rudi End: 10-35-1999fcpp 1 tablet by mouth once dailyvalsartan (DIOVAN) 160 MG tablet Take 1 tablet every day by oral route. 08/24/2023 Discontinuedvancomycin (VANCOCIN) 1250 mg in dextrose 5 % 250 mL IVPB (1 source)Start: 12-15-2018 End: 32-01-0032vshanvnlop (VANCOCIN) 1250 mg in dextrose 5 % 250 mL IVPB vancomycin (VANCOCIN) intermittent dosing (placeholder) (1 source)Start: 12-15-2018 End: 57-01-4755ngiwrwkynz (VANCOCIN) intermittent dosing (placeholder)Vitamin B Complex (B Complex-Vitamin B12) tablet (18 sources)Start: 05-14-2023 End: 21-16-6268jrhe 1 tablet by mouth once dailyVitamin B Complex (B Complex- Vitamin B12) tablet Discontinued 1 TAB PO Daily May 14, 2023 12:00am September 03, 2023 2:57pmStart: 05-14-2023 End: 06-30-5020spqd 1 tablet by mouth once dailyVitamin B Complex (B Complex- Vitamin B12) tablet Discontinued 1 TAB PO Daily May 14, 2023 1:00amJune 2023 3:57pmStart: 63-23-2211tije 1 tablet by mouth once dailyVitamin B Complex (B Complex-Vitamin B12) tablet Active 1 TAB PO Daily May 14, 2023 1:00am vitamin K2 (8 sources)Vitamin K2 Not-TakingVitamin K2 Activezafirlukast 20 mg oral tablet (20 sources)Leukotriene Receptor AntagonistStart: 08-01-2017 End: 28-10-6801nnlp 1 tablet by mouth twice dailyZafirlukast 20 mg tablet Discontinued 20 MG PO Twice daily August 01, 2017 12:00am June 28, 2021 4:36pm take 1 tablet by mouth every twenty-four hoursZafirlukast 20 MG 1 tablet Orally daily for 90 days Active Problems Active Problems Problem ClassificationProblemDateDocumented DateEpisodic/ChronicAcute and unspecified renal failure (2 sources)Acute injury of kidney; Translations: [LALY (acute kidney injury)] Onset: Acute cerebrovascular disease (20 sources)Hemorrhage into subarachnoid space of neuraxis; Translations: [Nontraumatic subarachnoid hemorrhage, unspecified]Onset: ChronicAcute myocardial infarction (20 sources)Non-ST elevation (NSTEMI) myocardial infarction; Translations: [Myocardial infarction]Onset: 40-88-6291EdovadcLmthajplhl disorders (16 sources)Adjustment disorder with depressed mood; Translations: [Adjustment disorder with depressed mood]Onset: 86-21-1382YayufedUkjehdsn reactions (1 source)Allergic disposition; Translations: [Allergy, unspecified, initial encounter]Onset: 44-12-9822GzpqqfifSaxzroe disorders (20 sources)Anxiety disorder; Translations: [Anxiety disorder, unspecified] Onset: 70-46-0675ZntzsyeUfhbat (20 sources)Unspecified asthma, uncomplicated; Translations: [Asthma]Onset: 478103-53-0720MqnbopnYtbrwvp dysrhythmias (2 sources)Sinus bradycardia; Translations: [Bradycardia, unspecified]Onset: 63-04-4456ZgcqcortEzkrrjlt (7 sources)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; Translations: [Other secondary cataract, right eye]61-41-7241WibgbekHwnmsvv ulcer of skin (9 sources)Non-pressure chronic ulcer of left heel and midfoot limited to breakdown of skin; Translations: [Ulcer of heel and midfoot]Onset: 03-20-2023 12-42-5670YnudnitGnblnmloka heart failure; nonhypertensive (20 sources)Diastolic dysfunction; Translations: [Chronic diastolic heart failure]Onset: 709705-45-1977QsaqlyiWwdjeydf atherosclerosis and other heart disease (20 sources)Coronary atherosclerosis; Translations: [Atherosclerotic heart disease of [place] coronary artery without angina pectoris]Onset: 11-30-2021 ChronicCoronary atherosclerosis and other heart disease (7 sources)Patient post percutaneous transluminal coronary angioplasty; Translations: [Percutaneous transluminal coronary angioplasty status]Episodic Comment on above:RCA November 2021;Deficiency and other anemia (2 sources)Normocytic normochromic anemia; Translations: [Anemia, normocytic normochromic]Onset: 244762-45-0034RcqlalgpPexghvxler and other anemia (2 sources)Normocytic anemia; Translations: [Normocytic anemia]Onset: 12-15-2018 85-68-7490NihlpflfIgjxrsqnjz and other anemia (5 sources)Anemia; Translations: [Anemia, unspecified]Onset: 32-36-4183Klqhbuhu Deficiency and other anemia (20 sources)Chronic anemia; Translations: [Anemia, unspecified]Onset: 12-15-2018 24-91-1691QdlzcqfcEdubmjain of lipid metabolism (20 sources)Hyperlipidemia; Translations: [Other and unspecified hyperlipidemia] Onset: 82-94-1999TcaawbfH Codes: Place of occurrence (1 source)Accident while engaged in household activity; Translations: [Unspecified place in unspecified non-institutional (private) residence as the place of occurrence of the external cause]Onset: 45-30-5097EdcpbudgFahbjthw; convulsions (3 sources)Epilepsy, unspecified, not intractable, without status epilepticus; Translations: [Epilepsy]Onset: 82-56-6117MfaffhhJhythmlw; convulsions (20 sources)Seizure disorder; Translations: [Seizure]Onset: EpisodicEsophageal disorders (20 sources)Gastroesophageal reflux disease without esophagitis; Translations: [Gastro-esophageal reflux disease without esophagitis]Onset: 29-17-5193Hzdfeyc Essential hypertension (20 sources)Essential (primary) hypertension; Translations: [Essential hypertension]Onset: 08-07-2017 Resolved: 582227-36-3124XfjhercGfcrazot Injury - Fall (20 sources)Fall on same level from slipping, tripping and stumbling without subsequent striking against object, initial encounter; Translations: [Fall] Onset: 331999-50-3470Fyhiedhm of neck of femur (hip) (1 source)Closed fracture of neck of femur; Translations: [Fracture of unspecified part of neck of unspecified femur, initial encounter for closed fracture]Onset: 27-75-2140UrgshactMcfownhrmewae symptoms and ill-defined conditions (15 sources)Urinary incontinence; Translations: [Unspecified urinary incontinence]Onset: 080643-20-4011LtouklnWffriips; including migraine (1 source)Headache; Translations: [Headache, unspecified]Onset: 04-20-2023 EpisodicHypertension with complications and secondary hypertension (3 sources)Hypertensive emergency; Translations: [Hypertensive emergency]Onset: 66-74-2798AnoajqhGlokxabgaawr; infection of eye (except that caused by tuberculosis or sexually transmitteddisease) (2 sources)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; Translations: [Exposure keratoconjunctivitis, left eye]64-95-2852FcinvabJlsds disorders and dislocations; trauma-related (12 sources)Joint derangement; Translations: [Other articular cartilage disorders, unspecified ankle]Onset: 326640-30-7597OmhgazlIvoiaft and fatigue (20 sources)Fatigue; Translations: [Chronic fatigue, unspecified]ChronicMalaise and fatigue (3 sources)Asthenia; Translations: [Weakness]Onset: 61-74-4209FigcsufcFbdgjcp (11 sources)Onychomycosis due to dermatophyte ; Translations: [Tinea unguium] Onset: 393997-01-0248BdojwvznErlmlt and vomiting (1 source)Nausea; Translations: [Nausea]Onset: 75-88-9018IzbnexveKblqrwratvh deficiencies (20 sources)Vitamin D deficiency; Translations: [Vitamin D deficiency, unspecified]ChronicOcclusion or stenosis of precerebral arteries (20 sources)Carotid artery stenosis; Translations: [Occlusion and stenosis of unspecified carotid artery]Onset: 05-09-2021 Resolved: 88-14-1633HnjmvjfHevogporagiqoh (20 sources)Osteoarthritis; Translations: [Unspecified osteoarthritis, unspecified site]Onset: 385494-02-3659MqrfxulZrnee aftercare (1 source)senior living (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; Translations: [RESIDENTIAL (CURRENT) USE OF ANTICOAGULANTS]Onset: 73-55-3426BurbbuxvOrqlt aftercare (3 sources)Drug therapy finding; Translations: [Long-term (current) use of other medications]EpisodicOther aftercare (1 source)Long-term current use of drug therapy; Translations: [Other mcfp (current) drug therapy]Onset: 34-37-3008AlfiwxfhXpoal and ill-defined cerebrovascular disease (1 source)Cerebral amyloid angiopathy; Translations: [Cerebral amyloid angiopathy (CODE)]Onset: 99-82-6956ItigqwjXsxti and ill-defined heart disease (1 source)Heart disease; Translations: [Other ill-defined heart diseases]Onset: 48-46-8609AbilmigLhnaj circulatory disease (1 source)Disorder of respiratory system; Translations: [Other specified symptoms and signs involving the circulatory and respiratory systems]Onset: 43-57-4957VjusxhksEifbn circulatory disease (3 sources)History of cerebrovascular disease; Translations: [Personal history of other diseases of the circulatory system]Onset: 72-09-3465MorgjiwpIocfz congenital anomalies (1 source)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; Translations: [Congenital malformation of retina]ChronicOther connective tissue disease (2 sources)Presence of left artificial shoulder joint; Translations: [PRESENCE OF LEFT ARTIFICIAL SHOULDER JOINT]Onset: 05-20-1783IavbsmvBhxzw connective tissue disease (20 sources)History of total knee arthroplasty; Translations: [Presence of artificial knee joint, bilateral]ChronicOther connective tissue disease (17 sources)History of hemiarthroplasty of right shoulder; Translations: [Presence of right artificial shoulderjoint]ChronicOther connective tissue disease (1 source)Other specified soft tissue disordersEpisodicOther connective tissue disease (20 sources)Enthesopathy of foot region; Translations: [Other enthesopathies, not elsewhere classified]Onset: 064662-31-5120TulbywlhYspgs connective tissue disease (5 sources)Other muscle spasm; Translations: [OTHER MUSCLE SPASM]Onset: 07-67-7245JvwjrfwqJfobl connective tissue disease (1 source)Pain in right leg; Translations: [PAIN IN RIGHT LEG]Onset: 04-13-2022 EpisodicOther connective tissue disease (1 source)Pain in left leg; Translations: [PAIN IN LEFT LEG]Onset: 04-13-2022 EpisodicOther connective tissue disease (1 source)Neurological symptom; Translations: [Unspecified symptoms and signs involving the nervous system]Onset: 88-72-9908SmbxhpntAfpcz diseases of veins and lymphatics (13 sources)Chronic venous hypertension (idiopathic) without complications of unspecified lower extremity; Translations: [Chronic venous hypertension without complications]32-16-8341LoyptruMoaum diseases of veins and lymphatics (13 sources)Lymphedema, not elsewhere classified; Translations: [Other lymphedema]34-05-7052NjdpddvHqtvc diseases of veins and lymphatics (20 sources)Venous hypertension; Translations: [Chronic venous hypertension (idiopathic) without complications of unspecified lower extremity]Onset: 869911-58-0892KbtozwxBjcwf diseases of veins and lymphatics (20 sources)Lymphedema of bilateral lower limbs; Translations: [Lymphedema, not elsewhere classified]Onset: 346055-45-5628EbfokdoDmfit diseases of veins and lymphatics (20 sources)Lymphedema; Translations: [Lymphedema, not elsewhere classified] Onset: 06-34-2057MciwmejRevyq diseases of veins and lymphatics (1 source)Venous hypertension; Translations: [Chronic venous hypertension] EpisodicOther diseases of veins and lymphatics (1 source)Lymphedema of bilateral lower limbs; Translations: [Lymphedema of lower extremity]Other ear and sense organ disorders (2 sources)Decreased hearing ; Translations: [Unspecified hearing loss, unspecified ear]78-67-4394WlojyjcHbahk eye disorders (20 sources)Chorioretinal scar of left eye; Translations: [Unspecified chorioretinal scars, left eye]Onset: 39-23-2144CououquPrcbd eye disorders (1 source)Meibomian gland dysfunction of bilateral eyes; Translations: [Meibomian gland dysfunction right eye, upper and lower eyelids]09-18-2023 EpisodicOther eye disorders (2 sources)Tear film insufficiency of bilateral eyes; Translations: [Dry eye syndrome of bilateral lacrimal glands]30-35-1265PzoneykaWraif fractures (1 source)Unspecified fracture of T9-T10 vertebra, initial encounter for closed fracture; Translations: [UNSPFRACTURE OF T9-T10 VERTEBRA, INIT FOR CLOS FX] Onset: 15-39-7297HjravkniTboin fractures (1 source)Closed fracture thoracic vertebra, wedge; Translations: [Wedge compression fracture of T11-T12 vertebra, initial encounter for closed fracture] Onset: 76-05-5584UhfoijxxPffcu fractures (1 source)Fracture of twelfth thoracic vertebra; Translations: [Unspecified fracture of T11-T12 vertebra, initial encounter for closed fracture]10-09-2023 EpisodicOther fractures (1 source)Wedge fracture of thoracic vertebra; Translations: [Wedge compression fracture of T11-T12 vertebra,subsequent encounter for fracture with routine healing]Onset: 21-76-9341CijbpvzeEapxj gastrointestinal disorders (1 source)Diarrhea; Translations: [Diarrhea, unspecified]Onset: 03-09-2024 EpisodicOther gastrointestinal disorders (4 sources)Dysphagia; Translations: [Dysphagia, unspecified]Onset: 08-28-2024 EpisodicOther infections; including parasitic (2 sources)Local infection of wound; Translations: [Wound infection]Onset: 862768-16-2391DpbsmgjdScjud injuries and conditions due to external causes (4 sources)Injury of radial nerve at forearm level, left arm, initial encounter; Translations: [Unspecified injury of left shoulder and upper arm, initial encounter]Onset: 76-33-4338VkgflynuBpfgg injuries and conditions due to external causes (9 sources)Wound ; Translations: [Full-term infant]55-72-8530WjwnkjfiJjdua injuries and conditions due to external causes (1 source)Other injury of unspecified body region, initial encounterEpisodic Other injuries and conditions due to external causes (9 sources)Personal history of other (healed) physical injury and trauma; Translations: [Personal history of other injury]33-33-0018UnqjcrffYyceo injuries and conditions due to external causes (2 sources)H/O: head oeortj37-66-8229CbsdmttcPpdfj liver diseases (15 sources)Disease of liver; Translations: [Other specified diseases of liver] Onset: 22-00-4944MetzskpWbzif liver diseases (20 sources)Liver khvt87-46-6250PqybrivJhrgo lower respiratory disease (20 sources)Lung field abnormal; Translations: [Other nonspecific abnormal finding of lung field]EpisodicOther lower respiratory disease (3 sources)Multiple nodules of udho66-75-1066IgfuwpiyLwpxe lower respiratory disease (1 source)Hypoxemia; Translations: [Hypoxemia]Onset: 30-48-5690VqtldnxaTkqez nervous system disorders (20 sources)Acute radial nerve palsy; Translations: [Lesion of radial nerve, left upper limb]Onset: 368870-76-7765SakxpscIwans nervous system disorders (20 sources)Difficulty in walking, not elsewhere classified; Translations: [Difficulty in walking]Onset: 124794-47-6659EotsoclJxiem nervous system disorders (20 sources)Difficulty walking; Translations: [Difficulty in walking, not elsewhere classified]Onset: 827441-07-3809XepqjroSfttf nervous system disorders (20 sources)Chronic pain due to injury; Translations: [Chronic pain due to trauma]Onset: 460705-68-9460DqftfkiKopig nervous system disorders (3 sources)Chronic pain due to traumaChronicOther nervous system disorders (15 sources)Disorder of brain; Translations: [Encephalopathy, unspecified]Onset: 832965-02-9898MguqxgpLprpj nervous system disorders (2 sources)Idiopathic progressive polyneuropathy; Translations: [Idiopathic progressive neuropathy]73-22-4389UnkzqvsJbgyn nervous system disorders (1 source)Tremor; Translations: [Tremor, unspecified]Onset: 28-86-5843Azpemwbf Other nervous system disorders (4 sources)Tremor, unspecified; Translations: [Abnormal involuntary movements] 54-11-8122TtyiuvhyGjtrx nervous system disorders (2 sources)H/O: epilepsy; Translations: [Personal history of other diseases of the nervous system and sense organs]53-92-1503GvtjasegLeniq non-epithelial cancer of skin (2 sources)History of malignant basal cell neoplasm of egcl19-51-3895Ukvimmng Other non-traumatic joint disorders (20 sources)Rotator cuff tear arthropathy; Translations: [Other specific arthropathies, not elsewhere classified, right shoulder]ChronicOther non- traumatic joint disorders (20 sources)Disorder of joint of ankle and/or foot; Translations: [Other specific joint derangements of unspecified ankle, not elsewhere classified] Onset: 879643-51-0271PvcdrklYswrb non-traumatic joint disorders (20 sources)Loose body in joint of ankle and/or foot; Translations: [Loose body in unspecified ankle]Onset: 544269-45-1943JffzptcMgjsa non-traumatic joint disorders (1 source)Pain in right knee; Translations: [PAIN IN RIGHT KNEE]Onset: 93-37-9592SwfhezatSnkku non-traumatic joint disorders (1 source)Pain in left knee; Translations: [PAIN IN LEFT KNEE]Onset: 04-13-2022 EpisodicOther non-traumatic joint disorders (6 sources)Pain in left shoulder; Translations: [PAIN IN LEFT SHOULDER]Onset: 91-13-5062JfwoitqqYzwan nutritional; endocrine; and metabolic disorders (2 sources)Hypocalcemia; Translations: [Hypocalcemia]Onset: ChronicOther nutritional; endocrine; and metabolic disorders (2 sources)Hypoalbuminemia; Translations: [Hypoalbuminemia]Onset: 12-16-2018 01-35-5299UslwrirLpokz nutritional; endocrine; and metabolic disorders (20 sources)Obesity; Translations: [Obesity, unspecified]Onset: 11-23-2021 45-85-3527YmdsyeuOqryh nutritional; endocrine; and metabolic disorders (20 sources)Morbid obesity; Translations: [Morbid (severe) obesity due to excess calories]Onset: 63-01-1269CeempgwYqasp nutritional; endocrine; and metabolic disorders (20 sources)Cerebral amyloid angiopathy; Translations: [Organ-limited amyloidosis]Onset: 962876-96-8736IryqjyxPmgph nutritional; endocrine; and metabolic disorders (1 source)Morbid (severe) obesity due to excess calories; Translations: [Morbid obesity (HCC)]Onset: 26-89-2986DpmtvegFdekk nutritional; endocrine; and metabolic disorders (6 sources)Overweight in adulthood with body mass index of 25 or more but less than 30; Translations: [Overweight]EpisodicOther skin disorders (1 source)Eruption; Translations: [Rash and other nonspecific skin eruption] EpisodicOther skin disorders (1 source)Disorder of the skin and subcutaneous tissue, unspecified; Translations: [Unspecified disorder of skin and subcutaneous tissue]08-05-2024 EpisodicOther skin disorders (2 sources)Callosity; Translations: [Corns and callosities]75-34-1252Amkavtna Other upper respiratory disease (20 sources)Seasonal allergic oxrtlfmt53-03-5829TzfbvkfIyirq upper respiratory disease (20 sources)Allergic disposition; Translations: [Other allergic rhinitis]Chronic Other upper respiratory disease (1 source)Other allergic rhinitisChronicOther upper respiratory infections (4 sources)Chronic sinusitis, unspecified; Translations: [Unspecified sinusitis (chronic)]84-54-0870NcutqslFynxzwnzxp and visceral atherosclerosis (20 sources)Intermittent claudication; Translations: [Peripheral vascular disease, unspecified]ChronicPneumonia (except that caused by tuberculosis or sexually transmitted disease) (1 source)Pneumonia; Translations: [Pneumonia, unspecified organism]Onset: 95-43-2029RifwicooKqtiumzsf heart disease (1 source)Pulmonary hypertension; Translations: [Pulmonary hypertension, unspecified]Onset: 17-91-6412AsvzldbAiivgwemvzqqkg care; fitting of prostheses; and adjustment of devices (20 sources)Patient encounter status; Translations: [Encounter for fitting and adjustment of other specified devices]Onset: 226525-44-8184WuhjbgaHauoljoi codes; unclassified (3 sources)Localized edema; Translations: [Edema of left lower extremity]Onset: 01-03-2021 Resolved: 22-41-4014DrasclkkBsvhauze codes; unclassified (20 sources)Postprocedural state finding; Translations: [Other specified postprocedural states]EpisodicResidual codes; unclassified (3 sources)Procedure dlkpzansrjipiqh79-44-2942GnwnywfwNsjjtaeh codes; unclassified (2 sources)Procedure carried out on subject; Translations: [Encounter for prophylactic measures, unspecified]Onset: 49-91-6476JeryonmkKpshhody codes; unclassified (1 source)H/O: Disorder; Translations: [Personal history of other specified conditions]Onset: 81-26-9964HulgxflcVwgivfsu codes; unclassified (1 source)Past history of procedure; Translations: [Other specified postprocedural states]Onset: 04-04-8417ZlankxogSlxehijc codes; unclassified (1 source)Localized edema; Translations: [Localized edema]Onset: 06-27-2022 EpisodicResidual codes; unclassified (3 sources)Edema; Translations: [Edema]EpisodicResidual codes; unclassified (1 source)Other specified postprocedural statesEpisodicResidual codes; unclassified (1 source)Pain, unspecified; Translations: [Pain, unspecified]Onset: 05-04-2023 EpisodicResidual codes; unclassified (1 source)Other general symptoms and signs; Translations: [Other general symptoms and signs]Onset: 83-24-8627CdqzihtsJctmukto codes; unclassified (1 source)Urinary catheter in situ; Translations: [Presence of other specified devices]40-32-2953AdinxmjsSrxnozsr codes; unclassified (1 source)History of ejyyhyu-stdxjvjd-lvbmsx (YAG) laser capsulotomy of lens; Translations: [Other specified postprocedural states]32-81-7021ByyorzesJegcnuyw codes; unclassified (1 source)Pain; Translations: [Pain, unspecified]06-16-8588ThzwvyemAvahudaq codes; unclassified (2 sources)At risk for imbalanced nutrition, less than body requirements; Translations: [At risk for malnutrition]Onset: 398740-82-6592Cqgfcrl detachments; defects; vascular occlusion; and retinopathy (20 sources)Hemorrhage of left retina; Translations: [Retinal hemorrhage, left eye]Onset: 52-55-1256FmvfgqoMrcchzabu and history of mental health and substance abuse codes (13 sources)Personal history of nicotine dependence; Translations: [Ex-smoker] Onset: 01-03-2021 Resolved: 65-54-0767NmkphntfBmymtiv on above:QUIT AT 36 YRS OLD 1/2 PPD;Skin and subcutaneous tissue infections (2 sources)Cellulitis of left lower limb; Translations: [Left leg cellulitis] Onset: 287779-13-8676Hsfxsawovxm; intervertebral disc disorders; other back problems (20 sources)Other intervertebral disc degeneration, lumbar region; Translations: [Spondylosis]Onset: 005409-48-0952YnzahxsXunncgy (2 sources)Syncope and collapse; Translations: [Syncope and collapse]Onset: 99-88-2074WxymgjqcPmjxxmdtdsup (2 sources)Unknown / UNK(Unknown)Onset: 32-71-8733Lsllrnpcefce (20 sources)Mild pulmonary xweckwjjbgtl13-26-7838Npkcmdelcaku (1 source)LOW BACK PAIN, UNSPECIFIED; Translations: [LOW BACK PAIN, UNSPECIFIED] Onset: 08-58-9968Vqrywuxyktks (11 sources)Fracture of twelfth thoracic egfvczos04-64-0718Zblozbc tract infections (1 source)Cystitis; Translations: [Cystitis, unspecified without hematuria] 19-02-6589Zqnbxhdp Past or Other Problems Problem ClassificationProblemDateDocumented DateEpisodic/ChronicAcute and unspecified renal failure (20 sources)Acute renal failure syndrome; Translations: [Acute kidney failure, unspecified]Onset: 95-07-1473LumsjrohXhitr posthemorrhagic anemia (20 sources)Acute posthemorrhagic anemia; Translations: [Acute posthemorrhagic anemia]Onset: 166141-16-8140TfzemgseFxrjsmuzo and vision defects (17 sources)Other visual disturbances; Translations: [Other specified visual disturbances]Onset: 166074-08-6945FxdlollwDofmgyckcodxd of surgical procedures or medical care (20 sources)Non-healing surgical wound; Translations: [Other complications of procedures, not elsewhere classified, initial encounter]Onset: 02-22-2024 88-50-5783RrswzheeVidpremiqi associated with dizziness or vertigo (1 source)Dizziness and giddinessOnset: 03-29-2021 Resolved: 28-77-0269BdxpphznOcnyzospaj and other anemia (20 sources)Iron deficiency anemia; Translations: [Iron deficiency anemia, unspecified]Onset: 502748-84-8831HewqefjnY Codes: Fall (20 sources)Fall; Translations: [Unspecified fall, initial encounter]Onset: 480852-30-8833KsbdonmqDigop and electrolyte disorders (20 sources)Lactic acidosis; Translations: [Hypo-osmolality and or hyponatremia] Onset: 298114-09-4617ZkbpbpuxAhwvnkin of upper limb (20 sources)Displaced comminuted fracture of shaft of humerus, left arm, initial encounter for closed fracture;Translations: [Displaced comminuted fracture of shaft of humerus, left arm, subsequent encounter for fracture with routine healing]Onset: 491172-61-3325ZeqnnibdBmgmvgecmhdoa symptoms and ill- defined conditions (16 sources)Retention of urine; Translations: [Retention of urine, unspecified] Onset: 567127-70-6353KszhvwqzLplfbaheqhwd injury (20 sources)Intracranial injury with loss of consciousness; Translations: [Traumatic subdural hemorrhage with loss of consciousness status unknown, initial encounter]Onset: 85-99-6516CdezkjsyTljmgxixwrl chest pain (16 sources)Chest pain; Translations: [Chest pain, unspecified]Onset: 12-11-2021 EpisodicOpen wounds of extremities (11 sources)Unspecified open wound, left knee, initial encounter; Translations: [Open wound of left knee]Onset: 814266-36-3263WszsbnfjWaswh aftercare (20 sources)Surgical follow-up; Translations: [Encounter for follow-up examination after completed treatment for conditions other than malignant neoplasm]Onset: 492722-88-8528InvzqnksYzbcb aftercare (20 sources)Polypharmacy ; Translations: [Other mcfp (current) drug therapy]Onset: 067816-59-1515QsdamsuzMkiwv connective tissue disease (1 source)Achilles tendinitis, left legOnset: 07-11-2021 Resolved: 62-52-7111ZkibwtosXdwpg connective tissue disease (20 sources)Pain in left lower limb; Translations: [Pain in left leg]Onset: 147797-82-9386GfojpdhqNfvry connective tissue disease (20 sources)Full thickness rotator cuff tear; Translations: [Complete rotator cuff tear or rupture of unspecified shoulder, not specified as traumatic]Onset: 218052-27-4004IilmogxeOvpbl connective tissue disease (20 sources)Bilateral rotator cuff arthropathy of shoulder; Translations: [Unspecified rotator cuff tear or rupture of right shoulder, not specified as traumatic]Onset: 531088-03-3357NaykpcjhNegkb connective tissue disease (20 sources)Plantar fasciitis; Translations: [Plantar fascial fibromatosis] Onset: 839527-29-2426ErolvilaKgznw connective tissue disease (20 sources)Pain in left foot; Translations: [Pain in left foot]Onset: 760080-93-8007FwwzvhpwApgnz connective tissue disease (20 sources)Heel pain; Translations: [Pain in unspecified foot]Onset: 10-15-2014 34-91-0501IcjnfttzUuteh connective tissue disease (20 sources)Calcaneal spur; Translations: [Calcaneal spur, unspecified foot] Onset: 948303-61-6038RmhssjghEnxtd connective tissue disease (20 sources)Tendinitis of right hand; Translations: [Other enthesopathies, not elsewhere classified]Onset: 031408-31-9725GzxcrsluNshaq connective tissue disease (20 sources)Left achilles tendonitis; Translations: [Achilles tendinitis, left leg]Onset: 107595-63-5198GvymmgxaZkxzc connective tissue disease (20 sources)Calcaneal spur of left foot; Translations: [Calcaneal spur, left foot]Onset: 338297-62-6193XfrtudaoPkgzu connective tissue disease (20 sources)Bilateral calf pain; Translations: [Pain in right lower leg]Onset: 183603-98-8868MhhpygkgDnbfm connective tissue disease (9 sources)Pain in limb; Translations: [Pain in unspecified limb]Onset: 940495-27-2016BlrnbvgpOwbeh diseases of kidney and ureters (16 sources)Acute renal insufficiency; Translations: [Disorder of kidney and ureter, unspecified]Onset: 025439-47-2423NctkkgskGdnip diseases of veins and lymphatics (20 sources)Peripheral venous insufficiency; Translations: [Venous insufficiency (chronic) (peripheral)]Onset: 744399-81-7734BcbdobvbMwyls diseases of veins and lymphatics (1 source)Venous insufficiency (chronic) (peripheral); Translations: [Chronic venous insufficiency I87.2]Onset: 12-13-2020 Resolved: 36-87-5463MvugihduGkxrc ear and sense organ disorders (1 source)Impacted cerumen, right earOnset: 06-22-2021 Resolved: 72-74-5830RkqtrgjuCsnym injuries and conditions due to external causes (1 source)Personal history of (healed) traumatic fracture; Translations: [PERSONAL HX HEALED TRAUMATIC FX]Onset: 56-18-4502XcarkdttUpnbb lower respiratory disease (13 sources)Cough; Translations: [Cough, unspecified]Onset: EpisodicOther nervous system disorders (20 sources)Paresthesia of lower extremity; Translations: [Anesthesia of skin] Onset: 819155-31-9653SxdtknpnWwkwq nervous system disorders (20 sources)Acute pain due to injury; Translations: [Acute pain due to trauma] Onset: 629111-70-1477QrjplmnhNjoid nervous system disorders (14 sources)Acute postoperative pain; Translations: [Other acute postprocedural pain]Onset: 673938-49-6023CcqwtianBcshj non-traumatic joint disorders (20 sources)Ankle instability; Translations: [Other instability, unspecified ankle]Onset: 353567-32-7822WvhcctdcVybuv nutritional; endocrine; and metabolic disorders (20 sources)Hypophosphatasia; Translations: [Other disorders of phosphorus metabolism]Onset: 08-03-2023 Resolved: 984434-03-4160WgvpxisRjgbq screening for suspected conditions (not mental disorders or infectious disease) (20 sources)Encounter for screening mammogram for malignant neoplasm of breast; Translations: [Blood chemistry abnormal]Onset: 01-06-2021 Resolved: 77-20-4911VwmpwdoxUvjhlea on above:MRSA in nasal swab 10/04/2023Other skin disorders (20 sources)Abnormality of nail of toe; Translations: [Other nail disorders] Onset: 508398-72-4048TjxyhxzaWgsmi upper respiratory infections (15 sources)Acute upper respiratory infection; Translations: [Acute upper respiratory infection, unspecified]Onset: 76-39-8130LwwafvshResrqnadn; thrombophlebitis and thromboembolism (20 sources)Personal history of other venous thrombosis and embolism; Translations: [Thrombosis of superficial vein of lower limb]Onset: 08-07-2017 71-78-1886RojymgxfZvqnmpmk codes; unclassified (20 sources)Restlessness and agitation; Translations: [Restlessness and agitation]Onset: 08-03-2023 Resolved: 172712-29-7863UqqcnuwZukggzsw codes; unclassified (20 sources)Edema of lower extremity; Translations: [Localized edema]Onset: 912151-99-3425EesxmjduXwppjmdp codes; unclassified (20 sources)Patient encounter status; Translations: [Other specified health status]Onset: 31-70-2880PirpskhxVfxnurjn codes; unclassified (20 sources)Altered mental status; Translations: [Altered mental status, unspecified]Onset: 39-65-5019KhjfhqsrYknjhgpr codes; unclassified (15 sources)Chill; Translations: [Chills (without fever)]Onset: 06-14-2023 EpisodicResidual codes; unclassified (14 sources)At risk for imbalanced nutrition, less than body requirements; Translations: [Other specified personal risk factors, not elsewhere classified] Onset: 800884-40-1501FxveefquIkaemqqymsg; intervertebral disc disorders; other back problems (20 sources)Intervertebral disc disorders with radiculopathy, lumbar region; Translations: [Radiculopathy, lumbosacral region]Onset: 34-78-8907Lthfanus Sprains and strains (1 source)Strain of muscle, fascia and tendon of other parts of biceps, left arm, initial encounter; Translations: [STRN MSC F TEND OTH PRT BIC LA INIT] Onset: 56-34-6154ZahhchpgWlmsbnuedcx injury; contusion (20 sources)Contusion of knee; Translations: [Contusion of right foot]Onset: 102626-44-1929BmpgysulFsfimpeiwzxh (18 sources)Wound ; Translations: [Traumatic wound]33-93-6836Zlcbucbmiqva (1 source)Cough R05.9Unclassified (2 sources)Chronic cough R05.3Viral infection (9 sources)Verruca plantaris; Translations: [Plantar wart]Onset: 03-20-2023 73-66-0096Qrryirhk Results Test NameValueInterpretationReference RangeFacilityTelephone Encounteron 63-03-9950Iigbybaszjrsh Authentication Interface Message TextCall to ED requesting electric Rx for cephalexin. Did not receive at recent ED visit. Pt with some dark urine, otherwise doing well. Kunz in place with plan for urology follow up tomorrow. [facility] Patient Centered Care Specialist Authentication Interface Message TextOrthopaedic Surgery Consult [facility] Requesting Provider / Service: ED CC: urinary retention HPI: Carly Marcelino is a 84 year old female w a past medical history of CAD, HF, and chronic T12 compression who [facility] ED [facility] [...] data in the 24 hours ending 01/10/25 2328 Physical Exam: There were no vitals taken [...] Dr. Martinez in 2-4 weeks, please call [phone] to schedule - Pain control per ED - Dispo per ED This consult was seen and staffed within 30 minutes of the initial consult. --- Arlene Oviedo MD Orthopaedic Surgery, PGY 2 Teaching Physician Note: I reviewed the PA/MANUFACTURERS REPRESENTATIVE/resident's documentation and discussed the patient with the PA/MANUFACTURERS REPRESENTATIVE/resident. I agree with the PA/MANUFACTURERS REPRESENTATIVE/resident's medical decision making as documented in the PA/MANUFACTURERS REPRESENTATIVE/resident's note. Janny Martinez MD [place] Department of Neurological Surgery [id number] [facility] [place], [address] [1] No past medical history on file. [2] Past Surgical History: Procedure Laterality Date KATTY [...] medications for this encounter. Current Outpatient Medications: (more content not included)...NormalThe [facility] SystemED Provider Noteson [id number] Authentication Interface Message TextJD for JF: 84 yo female, h/o cad, [...] home with op f/u and rted instructions. Luz BaxterTrinity Health System [facility] SystemTranscription [employer] Interface Message TextSign-out note: [place] 84 yo F, hx of [...] strict return precautions. Discharged in a stable condition.NormalThe [employer] SystemTranscription Authentication Interface Message TextEMERGENCY DEPARTMENT - VISIT NOTE HISTORY OF PRESENT ILLNESS chief complaint Cardiac Catheterization Technician: not needed - patient preferred language is Haitian. The history is provided by the Patient. [...] EXAM BP 166/73 Pulse 54 Temp 97.5 ???F (36.4 ???C) (Oral) Resp 12 SpO2 99% Physical Exam Triage note and vital signs reviewed General: Well-appearing, NAD and non-toxic appearing HEENT: Normocephalic; EOM intact, no scleral icterus; no epistaxis, rhinorrhea, or congestion; neck is supple Mouth: MMM Cardiovascular: RRR, no mumurs, rubs or gallops. 2+ radials and DPs bilaterally Respiratory: No respiratory distress, CTAB without wheezes, rales or ronchi Abdomen: Soft, non-distended, nontender to palpation, no guarding. No CVA tenderness. MSK: Full ROM, no peripheral edema Skin: No rashes, capillary refill <2 seconds. Warm distal extremities Neuro: A AND Ox3. Normal gait. No clonus, negative Babinski, n5/5 str in dorsiflexion/plantar flexion, knee flexion, hip flexors. Mildly diminished patellar reflexes bilaterally MEDICAL DECISION MAKING and ED COURSE Course AND Results Interpretation: ED Course as of 01/11/25 0603 Sun Jan 11, 2025 0418 [place] number: [id number] [TRAV] ED Course User Index [TRAV] Seven Diehl MD [facility] Management Decisions: Admission considered pending ortho recs Diagnoses considered include spinal hematoma, epidural abscess, cauda equina, FTT Discussion with External Provider: Exhibit Display Representative from ortho service recommendations pending Carly Marcelino 84 year old with pmh as noted above presenting to the emergency department for back pain, urinary incontinence. Vital signs and physical exam as noted above and are reassuring. Discussed with the Orthopedic surgery, pending final recommendations on signout. MRI outside hospital negative, lower suspicion for acute surgical intervention. Dispo: Pending Evaluated by EM attending Luke Monson IMPRESSION AND DISPOSITION Clinical Impression Diagnosis Comment Urinary incontinence, unspecified type [R32] Cystitis [N30.90] Fall, initial encounter [W19.XXXA] Chronic bilateral low back pain without sciatica [M54.50, G89.29] Abnormal MRI [R93.89] Seven Diehl MD EM PGY-3 Pager #[phone] ATTENDING NOTE I saw and evaluated the [...] [2] Past Surgical History: Procedure Laterality Date KATTY HOLES, HEMATOMA EVACUATION Left 08/14/2023 Procedure: KATTY HOLES x2, HEMATOMA EVACUATION; Surgeon: Artem Li MD; Location: PERIOPERATIVE SERVICES; [facility] Sp[facility] Lumbar w/o Contraston [id number] Spine Lumbar w/o Contrast Exam Date/Time: 01/10/2025 17:36 EDT Reason for [...] Ordering Provider: Avery Garcia FINAL REPORT Dictated: 01/11/2025 8:42 am Riaz Clemente DO Signed (Electronic Signature): 01/11/2025 8:42 am Signed by: Riaz Clemente DO Transcribed by: BRENDA Technologist: [facility]ITARIUMTiffaniBerger HospitalMRI Spine Thoracic w/o Contraston [id number] Spine Thoracic w/o ContrastExam Date/Time: 01/10/2025 17:37 EDT Reason for Exam: [...] Ordering Provider: Avery Garcia FINAL REPORT Dictated: 01/11/2025 8:35 am Riaz Clemente DO Signed (Electronic Signature): 01/11/2025 8:35 am Signed by: Riaz Clemente DO Transcribed by: BRENDA Technologist: HeatherCarolinas Continuecare Hospital At Universityabigail Sinai Hospital Of BaltimoreURINALYSIS WITH REFLEX CULTURE PERFORMABLEon 18-06-1321Ignvetngh PhosphatesFew/HPF MetroHealthAppearance (U)TurbidClearMetroHealthBacteria LM.HPF (Urine sed) [#/Area]Few/HPFMetroHealthBilirubin Ql (U)NegativeNegativeMetroHealthColor (U) Light YellowColorlessMetroHealthGlucose Auto test strip (U) [Mass/Vol]Negative Negative mg/dLMetroHealthHemoglobin Ql (U)ModerateAbnormalNegativeMetroHealth Interpretation and review of laboratory resultsAbnormalMetroHealthKetones Ql (U) TraceAbnormalNegative mg/dLMetroHealthLeukocyte esterase Test strip Ql (U) NegativeNegativeMetroHealthMucus Ql (Urine sed)PresentMetroHealthNitrite Ql (U) PositiveAbnormalNegativeMetroHealthpH (U)7.5 [pH]5.0 - 8.0MetroHealthProtein (U) [Mass/Vol]10 mg/dLNegativeMetroHealthSpecific gravity (U) [Rel density]1.018 NINF - 1.030MetroHealthUrobilinogen Qn (U)NegativeNegative mg/dLMetroHealthWBC (U) [#/Vol]/uLAbnormalMetroHealthWBC LM.HPF (Urine sed) [#/Area]6-10Abnormal MetroHealthA negative leukocyte esterase AND negative nitrite test [...] (positive predictive value for UTI around 50%) MetroHealthMetroHealthAMORPHOUS PHOSPHATESFewNormalThe [facility] SystemComment on above:Order Comment: A negative leukocyte esterase AND negative nitrite [...] conditions (positive predictive value for UTI around 50%)Performed By: #### C URINE ####[facility] [address] [place], [place]#### urinalysiswcul ####S PATHOLOGY HMZVSETHHI7728 [place], [address]Ikxttlu Ql (U)NegativeNormalNegativeThe [facility] SystemComment on above:Order Comment: A negative leukocyte esterase AND negative nitrite [...] conditions (positive predictive value for UTI around 50%)Performed By: #### C URINE ####[facility] Iwnilijkq[address] [place], [place] [address]#### urinalysiswcul ####S PATHOLOGY BDIPHJAZNN[address] [place] [address], [address]Tpnbxum (U) [Mass/Vol]10 mg/dLNormal NegativeThe [facility] SystemComment on above:Order Comment: A negative leukocyte esterase AND negative nitrite test or absence of pyuria (urine WBC count <= 5-10) make a UTI (urinary tract infection) very unlikely in a non- neutropenic adult (<=5% likelihood in many studies). A positive leukocyte esterase, nitrite and/or pyuria is a nonspecific result. This can be seen in conditions other than a UTI e.g. asymptomatic bacteriuria, gynecologic infections, sexually transmitted infections, and noninfectious conditions (positive predictive value for UTI around 50%)Performed By: #### C URINE ####[facility] Cplxrlqbb[address] [place], [place] [address]#### urinalysiswcul ####S PATHOLOGY RFTTIBEBUY[address] [place] [address], [address]D APPEARTurbidNormalClearThe [facility] SystemComment on above:Order Comment: A negative leukocyte esterase AND negative nitrite [...] conditions (positive predictive value for UTI around 50%)Performed By: #### C URINE ####[facility] Qrfofhchd[address] [place], [place] [address]#### urinalysiswcul ####[facility] PATHOLOGY DLJATIXEKT[address] [place] [address], [address]U BACTERIAFewNormalThe [facility] SystemComment on above:Order Comment: A negative leukocyte esterase AND negative nitrite [...] conditions (positive predictive value for UTI around 50%)Performed By: #### C URINE ####[facility] Ebdtuvcja[address] [place], [place] [address]#### urinalysiswcul ####[facility] PATHOLOGY EKOKCOLFZX[address] [place] [address], [address]W BILINegativeNormalNegativeKettering Memorial Hospital SystemComment on above: Order Comment: A negative leukocyte esterase AND negative nitrite [...] conditions (positive predictive value for UTI around 50%)Performed By: #### C URINE ####[facility] Ekvcklhem[address] [place], [place] [address]#### urinalysiswcul ####[facility] PATHOLOGY DOYTEMQASQ[address] [place] [address], [address]U BLOODModerateAbnormalNegativeKettering Memorial Hospital SystemComment on above: Order Comment: A negative leukocyte esterase AND negative nitrite [...] conditions (positive predictive value for UTI around 50%)Performed By: #### C URINE ####[facility] Wwtporpvm[address] [place], [place] [id number]#### urinalysiswcul ####[facility] PATHOLOGY UOQCULJCLK[address] [place] [address], [address]X COLORLight YellowNormalColorlessThe [facility] SystemComment on above:Order Comment: A negative leukocyte esterase AND negative nitrite [...] conditions (positive predictive value for UTI around 50%)Performed By: #### C URINE ####[facility] Aecbdmzml[address] [place], [place] [address]#### urinalysiswcul ####[facility] PATHOLOGY KKKVIXWPZZ[address] [place] [address], [address]C KETONETraceAbnormalNegativeThe [facility] SystemComment on above: Order Comment: A negative leukocyte esterase AND negative nitrite [...] conditions (positive predictive value for UTI around 50%)Performed By: #### C URINE ####[facility] Oncvsyrox[address] [place], [place] [id number]#### urinalysiswcul ####[facility] PATHOLOGY REXUEKFGWZ[address] [place] [address], [address]R LEUKNegativeNormalNegativeKettering Memorial Hospital SystemComment on above: Order Comment: A negative leukocyte esterase AND negative nitrite [...] conditions (positive predictive value for UTI around 50%)Performed By: #### C URINE ####[facility] Uqovsvwok[address] [place], [place] [id number]#### urinalysiswcul ####[facility] PATHOLOGY USTRFQZUCS[address] [place] [address], [address]C MUCOUSPresentNormalThe [facility] SystemComment on above:Order Comment: A negative leukocyte esterase AND negative nitrite [...] conditions (positive predictive value for UTI around 50%)Performed By: #### C URINE ####[facility] Tmbfvfbaz[address] [place], [place] [address]#### urinalysiswcul ####[facility] PATHOLOGY KUBHCUQHEA[address] [place] [address], [address]M NITRITEPositiveAbnormalNegativeKettering Memorial Hospital SystemComment on above:Order Comment: A negative leukocyte esterase AND negative nitrite [...] conditions (positive predictive value for UTI around 50%)Performed By: #### C URINE ####[facility] Ljnlrkarj[address] [place], [place]#### urinalysiswcul ####S PATHOLOGY UPXBPGUSLH[address] [place] [address], [address]I PH7.8Hnitft5.0-8.0The [facility] SystemComment on above:Order Comment: A negative leukocyte esterase AND negative nitrite [...] conditions (positive predictive value for UTI around 50%)Performed By: #### C URINE ####[address]#### urinalysiswcul ####S PATHOLOGY GRXECIKKFX[address] [place] [address], [address]E RBC>512Ufxqtzwl2-5Kbb [facility] SystemComment on above:Order Comment: A negative leukocyte esterase AND negative nitrite [...] conditions (positive predictive value for UTI around 50%)Performed By: #### C URINE ####[facility] Ubvyngwut16[address] [place], [place]#### urinalysiswcul ####[facility] HTIUYSNBZL5533 [place], [address]G SG1.018Normal<=1.030The [facility] SystemComment on above:Order Comment: A negative leukocyte esterase AND negative nitrite [...] conditions (positive predictive value for UTI around 50%)Performed By: #### C URINE ####[facility] Icrbxyvlm[address] [place], [place] [id number]#### urinalysiswcul ####[facility] PATHOLOGY CVCCQWPAQH[address] [place] [address], UROBILINegativeNormalNegativeThe [facility] SystemComment on above: Order Comment: A negative leukocyte esterase AND negative nitrite [...] conditions (positive predictive value for UTI around 50%)Performed By: #### C URINE ####[facility] Netfsgmky[address] [place], [place] [phone]#### urinalysiswcul ####[facility] PATHOLOGY YRDCPBHXUZ[address] [place] [address], [address]U YOH5-33Zhyhjruu1-8Isx [facility] SystemComment on above:Order Comment: A negative leukocyte esterase AND negative nitrite [...] conditions (positive predictive value for UTI around 50%)Performed By: #### C URINE ####[facility] Pzg[address]qykym[address] [place], [place]#### urinalysiswcul ####[facility] PATHOLOGY XWZEWDVQQG1324 [place], [address]HPDIU CULTUREon 61-79-7166Njwuieua identified Cx Nom (U)C URINE: 50,000 - 100,000 CFU/ml No significant growth; skin/urogenital contamination presentNormCleveland Clinic Mentor Hospitale [facility] SystemComment on above:Performed By: #### C URINE ####[facility] Axvczzxoh49[address] [place], [place]#### urinalysiswcul ####[facility] PATHOLOGY GAAXLYZJHZ4110 [place], [address]OV L-SPINE AP+LATERAL 2-3 VIEWSon 76-47-0569WS L-SPINE AP+LATERAL 2-3 VIEWSEXAMINATION: XR L-SPINE AP+LATERAL 2-3 VIEWSPRO 01/11/2025 10:53 AM CLINICAL HISTORY: UPRIGHT please ASSOCIATED DIAGNOSIS: ORDERING PROVIDER: REBECCA AMANDA NOTE: COMPARISON: XR T-SPINE/L-SPINE JNCT ONLY 2 [...] or significant listhesis. Moderate to severe lumbar spondylosis.NormalThe [facility] SystemXR Lumbar spine AP and Lateralon 73-20-7816JUSRCSONVQS: XR L-SPINE AP+LATERAL 2-3 VIEWSPRO 01/11/2025 10:53 AM CLINICAL HISTORY: UPRIGHT please ASSOCIATED DIAGNOSIS: ORDERING PROVIDER: REBECCA AMANDA NOTE: COMPARISON: XR T-SPINE/L-SPINE JNCT ONLY 2 [...] significant listhesis. Moderate to severe lumbar spondylosis. Vinh Fuchs MD - 01/11/2025 EXAMINATION: XR L-SPINE AP+LATERAL 2-3 VIEWSPRO 01/11/2025 10:53 AM CLINICAL HISTORY: UPRIGHT please ASSOCIATED DIAGNOSIS: ORDERING PROVIDER: REBECCA WOOD TECHNOLOGISTS NOTE: COMPARISON: XR T-SPINE/L-SPINE JNCT ONLY 2 [...] significant listhesis. Moderate to severe lumbar spondylosis. MetroHealthRadiology Study observation (narrative)MetroHealthXR Lumbar spine AP and LateralOrdered By: Vinh Hermosillo on 20-07-2783UaeqvEeudqy Work Phone: XR Spine Lumbosacral 2 or 3 Viewson [id number] Spine Lumbosacral 2 or 3 ViewsExam Date/Time: 01/10/2025 22:05 EDT Reason for Exam: standing films;Other (please specify) Report IMPRESSION: NO ACUTE OSSEOUS ABNORMALITY. EXAMINATION: XR Spine Lumbosacral 2 or 3 Views TECHNIQUE: AP and lateral views lumbar spine and coned down lateral view of the lumbosacral junction HISTORY: Low back pain COMPARISONS: CT abdomen pelvis 01/10/2025. Lumbar spine radiographs 11/20/2017. FINDINGS: Degenerative changes are identified throughout the lumbar spine. Stable grade 1 anterolisthesis of L4 on L5. No acute fracture identified by radiography. Atherosclerotic desiccation of the abdominal aorta. Ordering Provider: Ross Watson FINAL REPORT Dictated: 01/11/2025 8:46 am Riaz Clemente DO Signed (Electronic Signature): 01/11/2025 8:46 am Signed by: Riaz Clemente DO Transcribed by: BRENDA Technologist: [facility] HospitalXR Spine Thoracic Minimum 4 Viewson [id number] Spine Thoracic Minimum 4 ViewsExam Date/Time: 01/10/2025 22:05 EDT Reason for Exam: standing films;Pain, Non Traumatic Report IMPRESSION: MILD INTERVAL PROGRESSION OF T12 COMPRESSION DEFORMITY. EXAM: XR Spine Thoracic Minimum 4 Views HISTORY: Back pain TECHNIQUE: AP, lateral, and swimmer's lateral views of the thoracic spine obtained. COMPARISON: Chest CT 02/15/2024 FINDINGS: Slight accentuation of the thoracic kyphosis. Mild interval progression of T12 compression deformity. Thoracic vertebral body heights appear otherwise maintained. Degenerative changes of the thoracic spine. Atherosclerotic calcification of the thoracic aorta. Chronic changes of the lungs. Ordering Provider: Ross Watson FINAL REPORT Dictated: 01/11/2025 8:44 am Riaz Clemente DO Signed (Electronic Signature): 01/11/2025 8:44 am Signed by: Riaz Clemente DO Transcribed by: BRENDA Technologist: [facility] North HospitalBNPon 67-56-1127Gwbrigfqjcf peptide B (Bld) [Mass/Vol]119 pg/mLHigh5-80[facility] HospitalComment on above:Performed By: #### [id number] #### [facility] [address], [place] [address]AJJ w/ Auto Diffon 03-96-4289Wzvifgxz Absolute0.0 E9/LNormal 0.0-0.2[facility] Hospital [facility] BaltimoreComment on above:Performed By: #### [id number] #### [facility] [address], [place] [address]Naegxsosy/100 WBC (Bld)0.6 %Normal0.0-2.0[facility] HospitalComment on above:Performed By: #### [id number] #### [facility] [address], [place] [address]Flk Absolute0.1 E9/LNormal0.0-0.5FWright-Patterson [facility] Center Comment on above:Performed By: #### [id number] #### [facility] [address], [place] [address]Rjaowluryxl/100 WBC (Bld)2.9 %Normal0.0-8.0[facility] HospitalComment on above:Performed By: #### [id number] #### [facility] [address], [place] [address]Kwzjhzcwcns distribution width (RBC) [Ratio]13.4 %Normal 10.9-14.2FWright-Patterson Medical CenterComment on above:Performed By: #### [id number] #### [facility] [address] [place] [address]Hjitfhykdb (Bld) [Volume fraction]35.9 %Zjrlgr57.0-46.0[facility] HospitalComment on above:Performed By: #### [id number] #### [facility] [address], [place] [address]Gdxmhayura (Bld) [Mass/Vol]12.3 g/hGXmgctm68.0-16.0[facility] HospitalComment on above:Performed By: #### [id number] #### [facility] [address], [place] [address]Gsnfy Absolute1.0 E9/LNormal1.0-4.0[facility] Comment on above:Performed By: #### [id number] #### [facility] [address], [place] [address]Mvjddajyaot/100 WBC (Bld)21.0 %Vbdhvw79.0-50.0[facility] HospitalComment on above:Performed By: #### [id number] #### [facility] [address], [place] [address]YXV (RBC) [Entitic mass]31.2 ntOqnsmw19.0-34.0[facility] HospitalComment on above:Performed By: #### [id number] #### [facility] [address] [place] [address]BJRL (RBC) [Mass/Vol]34.2 g/sWBvmxoc90.4-36.0[facility] HospitalComment on above:Performed By: #### [id number] #### [facility] [address] [place] [address]YHC (RBC) [Entitic vol]91.3 uDVainzp13.0-100.0[facility] HospitalComment on above:Performed By: #### [id number] #### [facility] [address] [place] [address]Jtty Absolute0.5 E9/LNormal0.2-1.0[facility] Comment on above:Performed By: #### [id number] #### [facility] [address] [place] [address]Mzsubsmab/100 WBC (Bld)10.4 %Normal4.0-14.0[facility] HospitalComment on above:Performed By: #### [id number] #### [facility] [address] [place] [address]Wujltw Absolute3.1 E9/LNormal2.0-7.5FWright-Pat[facility] Center Comment on above:Performed By: #### [id number] #### [facility] [address], [place] [address]Qysfhz Auto65.1 %Rgmuze86.0-75.0[facility] Comment on above:Performed By: #### [id number] #### [facility] [address] [place] [address]Jerxfexj146.0 E9/CNeshuo263.0-500.0[facility] Comment on above:Performed By: #### [id number] #### [facility] [address] [place] [address]Bsmfzncb mean volume (Bld) [Entitic vol]7.6 fLNormal6.4-10.8 [facility] HospitalComment on above:Performed By: #### [id number] #### [facility] [address] [place] [address]ECY9.9 E12/LLow4.3-5.9[facility] HospitalComment on above:Performed By: #### [id number] #### [facility] [address] [place] [address]IMS0.7 E9/LNormal4.0-11.0[facility] HospitalComment on above:Performed By: #### [id number] #### [facility] [address] [place] [address]HNTxf 92-54-7032Httslrh [Mass/Vol]4.0 g/dLNormal3.3-5.0[facility] HospitalComment on above:Performed By: #### [id number] #### [facility] [address] [place] [address]Lifejuc/Globulin [Mass ratio]1.4 {ratio}Normal1.1-2.2FWright-Patterson Medical CenterComment on above:Performed By: #### [id number] #### [facility] [address] [place] [address]Ckz Phos56 Int._Unit/TMmomix23-34SyhjpeAvita Health System Bucyrus Hospital Comment on above:Performed By: #### [id number] #### [facility] [address], [place] [address]FKN31 Int._Unit/LNormal6-46[facility] HospitalComment on above:Performed By: #### [id number] #### [facility] [address], [place] [address]Bgyve gap [Moles/Vol]8 mmol/LNormal6-16[facility] HospitalComment on above:Performed By: #### [id number] #### [facility] [address], [place] [address]EKX37 Int._Unit/LNormal5-43[facility] HospitalComment on above:Performed By: #### [id number] #### [facility] [address], [place] [address]Lesb Total0.4 mg/dLNormal0.0-1.1FW[facility] Comment on above:Performed By: #### [id number] #### [facility] [address], [place] [address]WDY/Creat Ratio28 No HekkqDbqv06-95LluectAvita Health System Bucyrus Hospital Comment on above:Performed By: #### [id number] #### [facility] [address], [place] [address]Gxqfpde [Mass/Vol]9.2 mg/dLNormal8.9-11.1FWright-Patterson Medical CenterComment on above:Performed By: #### [id number] #### [facility] [facility] [address], [place] [address]Yqxztzwf [Moles/Vol]104 mmol/RNqomse216-212LorjjiAvita Health System Bucyrus HospitalComment on above:Performed By: #### [id number] #### [facility] [address], [place] [address]ND4 [Moles/Vol]31 mmol/JFeevbd35-64HjpcpoAvita Health System [facility] Comment on above:Performed By: #### [id number] #### [facility] [address], [place] [address]Aivpfxmgcj [Mass/Vol]0.8 mg/dLNormal0.5-1.3FWright-Patterson Medical CenterComment on above:Performed By: #### [id number] #### [facility] [address], [place] [address]Yasehjkk (S) [Mass/Vol]2.9 g/dLNormal1.4-4.0[facility] HospitalComment on above:Performed By: #### [id number] #### [facility] [address], [place] [address]Uivnhwp [Mass/Vol]84 mg/pAYoswnj08-823UnacicAvita Health System Bucyrus HospitalComment on above:Performed By: #### [id number] #### [facility] [address], [place] [address]Zrwmivtsy [Moles/Vol]4.3 mmol/LNormal3.5-5.3FWright-Patterson Medical CenterComment on above:Performed By: #### [id number] #### [facility] [address], [place] [address]Xrqmetd [Mass/Vol]6.9 g/dLNormal6.0-7.8[facility] HospitalComment on above:Performed By: #### [id number] #### [facility] [address], [place] [address]Zxyphp [Moles/Vol]139 mmol/BCjjdfy896-023SnxtftAvita Health System Bucyrus HospitalComment on above:Performed By: #### [id number] #### [facility] [address], [place] [address]Ytpp nitrogen [Mass/Vol]22 mg/dLHigh5-21Av[facility] HospitalComment on above:Performed By: #### [id number] #### [facility] [address] [place] [id number] Abdomen/Pelvis w/ Contraston [id number] Abdomen/Pelvis w/ ContrastExam Date/Time: 01/10/2025 10:55 EDT Reason for Exam: [...] The urinary bladder is decompressed around a Kunz catheter. The uterus is absent. Trace free fluid within the pelvis is nonspecific. Abdominal aorta is nonaneurysmal. Atherosclerotic desiccation of the abdominal aorta. 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 No retroperitoneal or abdominal/pelvic lymphadenopathy. No small bowel obstruction. Colonic diverticuli are identified. No overt colonic mass [...] Ordering Provider: Avery Garcia FINAL REPORT Dictated: 01/10/2025 11:21 am Riaz Clemente DO Signed (Electronic Signature): 01/10/2025 11:21 am Signed by: Riaz Clemente DO Transcribed by: BRENDA Technologist: BiankaAvita Health System Bucyrus HospitalCapillary Glucose POCon [id number] [Mass/Vol]93 mg/qRVepssb86-20DnovjxAvita Health System Bucyrus HospitalComment on above:Result Comment: Notified RN/JUDEerformed By: #### [id number] #### [facility] [address], [place] [address]Buuicak [Mass/Vol]81 mg/sUFftweg25-98IajaxdAvita Health System Bucyrus HospitalComment on above:Result Comment: Notified RN/MDPerformed By: #### [id number] #### [facility] [address] [place] [id number] Clinical Summaryon [id number] Clinical SummaryED Clinical Summary [address] [address] ED Clinical Summary Person Information Name: CARLY MARCELINO/[facility] Age: 84 Years : 1940 Sex: Female Language: Haitian PCP: HARDEEP MCKENZIE DO Marital Status: Visit Id: Visit Reason: Incontinence; Back pain; Shortness of breath; Weakness or fatigue; WEAKNESS Speciality: Acuity: 2 Enc Type: Emergency Med Service: Emergency Arrival: 01/10/2025 09:17:27 Discharge: 01/10/2025 22:08:24 LOS: 000 12:51 Checkin: 01/10/2025 09:17:27 Checkout: 01/10/2025 22:08:24 Dispo Type: Short-Term Hosp as IP EVENTS: Event Name Event Status Request Date/Time Start Date/Time Complete Date/Time Arrive Complete 01/10/2025 09:17:27 01/10/2025 09:17:27 01/10/2025 09:17:27 Document Home Meds Request 01/10/2025 09:17:27 Triage Complete 01/10/2025 09:17:27 01/10/2025 09:26:36 01/10/2025 09:26:36 Bed Assign Complete 01/10/2025 09:17:27 01/10/2025 09:17:27 01/10/2025 09:17:27 Dr Exam Complete 01/10/2025 09:17:27 01/10/2025 09:18:28 01/10/2025 09:18:28 RN Exam Complete 01/10/2025 09:17:27 01/10/2025 09:40:38 01/10/2025 09:40:38 Registration Complete 01/10/2025 09:18:28 01/10/2025 11:09:47 01/10/2025 11:09:47 EKG Complete 01/10/2025 09:20:09 01/10/2025 09:25:42 Fall Risk Request 01/10/2025 09:40:39 Pending Labs Complete 01/10/2025 09:43:44 01/10/2025 10:47:29 Lab Complete 01/10/2025 09:43:44 01/10/2025 10:47:29 Urine Collect Cancel 01/10/2025 09:43:44 01/10/2025 10:31:37 Patient Care Request 01/10/2025 09:43:44 CT Complete 01/10/2025 09:44:27 01/10/2025 10:16:58 01/10/2025 10:55:21 X-Ray Complete 01/10/2025 09:44:27 01/10/2025 10:16:58 01/10/2025 10:55:58 Pending Labs Complete 01/10/2025 09:57:10 01/10/2025 09:57:10 01/10/2025 10:27:33 Lab Complete 01/10/2025 09:57:10 01/10/2025 09:57:10 01/10/2025 10:27:33 Pending Labs Complete 01/10/2025 10:01:47 01/10/2025 10:01:47 01/10/2025 10:01:47 Patient Care Complete 01/10/2025 10:24:48 01/10/2025 17:21:00 Pending Labs Complete 01/10/2025 10:24:48 01/10/2025 10:25:56 Lab Complete 01/10/2025 10:24:48 01/10/2025 10:25:56 Urine Collect Complete 01/10/2025 10:24:48 01/10/2025 10:25:56 MRI Complete 01/10/2025 10:25:54 01/10/2025 16:38:02 01/10/2025 17:36:15 Pending Labs Complete 01/10/2025 10:25:56 01/10/2025 10:25:56 01/10/2025 10:39:35 Lab Complete 01/10/2025 10:25:56 01/10/2025 10:25:56 01/10/2025 10:39:35 Urine Collect Complete 01/10/2025 10:25:56 01/10/2025 10:25:56 01/10/2025 10:39:35 Wet Read Request 01/10/2025 10:55:58 Reg Complete Request 01/10/2025 11:09:47 Reg Bed Request Complete 01/10/2025 11:09:47 01/10/2025 11:09:47 01/10/2025 11:09:47 MRI Complete 01/10/2025 11:56:48 01/10/2025 16:38:17 01/10/2025 17:37:00 Pending Labs Complete 01/10/2025 14:07:37 01/10/2025 14:07:37 01/10/2025 14:07:37 Meds Admin Complete 01/10/2025 14:15:59 01/10/2025 14:20:29 Meds Admin Complete 01/10/2025 14:23:03 01/10/2025 15:00:35 Dr Exam Complete 01/10/2025 18:57:40 01/10/2025 18:57:40 01/10/2025 18:57:40 Registration Request 01/10/2025 18:57:40 Pending Labs Complete 01/10/2025 20:10:03 01/10/2025 20:10:03 01/10/2025 20:10:03 X-Ray Complete 01/10/2025 20:38:29 01/10/2025 20:43:49 01/10/2025 22:05:04 X-Ray Complete 01/10/2025 20:43:35 01/10/2025 20:43:49 01/10/2025 22:05:04 Patient Care Request 01/10/2025 21:14:34 Transfer Complete 01/10/2025 21:14:34 01/10/2025 22:08:44 01/10/2025 22:08:44 Discharge Complete 01/10/2025 22:08:44 01/10/2025 22:08:44 01/10/2025 22:08:44 ADDRESS: [facility] [address] [place] [phone] PHYS DOC NOTES: Addendum by Ross Watson DO on January 10, 2025 20:37:12 EDT MEDICAL INFORMATION: Prescriptions Given: Medications to Continue with No Changes Other Medications acetaminophen (acetaminophen 325 mg Tab) 2 Tablets By Mouth every 6 hours as needed Pain. cetirizine (Zyrtec) 10 Milligram By Mouth every day as needed Allergy symptoms. citalopram (citalopram 20 mg Tab) 1 Tablets By Mouth every day. Refills: 0. famotidine (famotidine 40 mg Tab) 1 Tablets By Mouth every day. Refills: 0. ferrous sulfate (ferrous sulfate 325 mg Tab) 1 Tablets By Mouth every day. Refills: 0. Fish Oil 1 Capsules By Mouth at bedtime. gabapentin (gabapentin 300 mg Cap) 1 Capsules By Mouth 3 times a day. lisinopril (lisinopril 30 mg Tab) 1 Tablets By Mouth every day. Refills: 0. lorazepam (LORazepam 0.5 mg Tab) 1 Tablets By Mouth every 8 hours as needed as needed for anxiety. Refills: 0. magnesium oxide (magnesium oxide 400 mg Tab) 1 Tablets By Mouth at bedtime. metoprolol (Metoprolol tartrate 25 mg Tab) 0.5 Tablets By Mouth 2 times a day. Refills: 0. montelukast (montelukast 10 mg Tab) 1 Tablets By Mouth every day. multivitamin with minerals (Multivitamins and Minerals oral tablet) pravastatin (pravastatin 40 mg Tab) 1 Tablets By Mouth every day. at bedtime. tolterodine (tolterodine 2 mg Cap-ER) 1 Capsules By Mouth every day. Refills: 3. (more content not included)...NormalFisher Onondaga Medical CenterED Note-Physicianon [id number] Note-PhysicianED Note-Physician Basic Information Time Seen: Avery Garcia MD 01/10/2025 09:18 Chief Complaint pt presents with chronic lower back pain with injection on Sunday and this morning woke up with genrelaized weakness and SOB when walking. pt vebralized increased urinary output with incontinence at night History of Present Illness 84-year-old female with history of chronic back pain presenting to the emergency department with complaints of incontinence of urine ever since having a lumbar spinal block by chronic pain doctor. Reports that she has been having these blocks for years and has never had this issue before. This happened about 6 days ago. Denies any fevers or chills. States that today she was having generalized weakness and some shortness of breath that prompted the ED visit today. Denies any weakness to the lower extremities, saddle anesthesia, numbness or tingling in the lower extremities. Patient is not on anticoagulation. No trauma. Also reporting some exertional shortness of breath. Review of Systems A 10 point review of systems is negative except as noted above. Physical Exam Vitals & Measurements T: 36.7 ???C(Oral) HR: 59(Monitored) RR: 16 BP: 146/72 SpO2: 95% HT: 170 cm WT: 70.8 kg BMI: 24.5 Gen: A&O NAD HEENT: NCAT, EOMI, not icteric. External ears normal. No rhinorrhea. Moist mucous membranes. Neck: Supple, full range of motion, no observable masses Lungs: No Respiratory distress. Lungs are clear to auscultation bilaterally. CV: RRR, no edema. No murmurs rubs or gallops Abdomen: Soft, nondistended, No rebound tenderness. MSK: No joint swelling, no redness. Some midline lumbar spine tenderness to palpation without any palpable step-offs or deformities. She does have 5-5 strength to the lower extremities with flexion and extension of all the joints. Unable to appreciate deep tendon reflexes of the patella secondary to history of bilateral knee arthroplasties. Unable to appreciate any deep tendon reflex deficits of the Achilles bilaterally. Sensation to lower extremities appear grossly intact in all dermatomal distributions. Skin: No rashes, petechiae, lesions. Normal color per patient. Neuro: Normal Gait, Grossly intact. Psych: Appropriate for situation. Medical Decision Making Vital signs reviewed and were unremarkable. Patient nontoxic well-appearing. Differential includes but is not limited to spinal nerve block sacral nerve distribution deficits, cauda equina syndrome, epidural hematoma, fracture, dislocation, UTI. Bladder scan did reveal that patient had about 800 cc in her bladder of urine after voiding here. Jose have concerns for possible spinal cord/canal pathology given recent procedure and so we will order an MRI of the lumbar spine. Also having some abdominal tenderness to palpation so we will order CT of the abdomen pelvis as well. Will evaluate for congestive heart failure given her shortness of breath that is primarily exertional. MRI imaging concerning for cauda equina syndrome. There are possibly acute T11 and acute on [id number] fractures. Given these findings and physical exam consistent with loss of deep tendon reflexes and overflow incontinence will consult spine surgery. She has remained stable during the entire ED stay. Laboratory workup was unremarkable for any evidence of LALY or troponinemia. Patient signed out to incoming ED physician pending ultimate disposition and transfer for cauda equina syndrome. Assessment/Plan 1. Overflow incontinence of urine (N39.490: Overflow incontinence) Ordered: MRI Spine Thoracic w/o Contrast 2. T12 vertebral fracture (S22.089A: Unspecified fracture of T11-T12 vertebra, initial encounter for closed fracture) 3. Cauda equina syndrome (G83.4: Cauda equina syndrome) Orders: lorazepam, 0.5 mg = 0.25 mL, Injection, IV Push, Once, Stop date 01/10/25 14:22:00 EDT, STAT, Startdate 01/10/25 14:22:00 EDT, 01/10/25 14:22:00 EDT B-Type Natriuretic Peptide Capillary Glucose POC CBC w/ Auto Diff Comprehensive Metabolic Panel CT Abdomen/Pelvis w/ Contrast eGFR Extra Blue Tube Extra SST Tube MRI Spine Lumbar w/o Contrast Post Void Residual Troponin 0 Hr. Urinary Catheter Insertion XR Chest Single View Medications Administered Given gabapentin 300 mg Cap, 300 mg, Oral LORazepam 2 mg/mL Inj, 0.5 mg, IV Push Metoprolol tartrate 25 mg Tab, 12.5 mg, Oral Disposition Plan Plan for transfer to higher level of care. Problem List/Past Medical History Ongoing Anemia Arthritis Asthma CAD (coronary artery disease) Chronic anemia Chronic GERD Compression fracture of T12 vertebra with routine healing Diastolic dysfunction Dysphagia Fall Fall at home APOORVA (generalized anxiety disorder) Heart attack Hepatic cyst History of traumatic head injury HTN Hx of skin cancer, basal cell Hyperlipidemia Mild pulmonary hypertension MRSA (methicillin resistant staph aureus) culture positive Seasonal allergies Seizure (more content not included)...[facility] – JacksonComment on above:Result Comment: Electronically Signed By: Ross Watson DO\.br\Date and Time Signed: 11/01/25 20:46 EDTED Note-PhysicianED Note-Physician Basic Information Time Seen: Radha VICTOR Avery 01/10/2025 09:18 Chief Complaint pt presents with chronic lower back pain with injection on Sunday and this morning woke up with genrelaized weakness and SOB when walking. pt vebralized increased urinary output with incontinence at night History of Present Illness 84-year-old female with history of chronic back pain presenting to the emergency department with complaints of incontinence of urine ever since having a lumbar spinal block by chronic pain doctor. Reports that she has been having these blocks for years and has never had this issue before. This happened about 6 days ago. Denies any fevers or chills. States that today she was having generalized weakness and some shortness of breath that prompted the ED visit today. Denies any weakness to the lower extremities, saddle anesthesia, numbness or tingling in the lower extremities. Patient is not on anticoagulation. No trauma. Also reporting some exertional shortness of breath. Review of Systems A 10 point review of systems is negative except as noted above. Physical Exam Vitals & Measurements T: 36.7 ???C(Oral) HR: 59(Monitored) RR: 16 BP: 146/72 SpO2: 95% HT: 170 cm WT: 70.8 kg BMI: 24.5 Gen: A&O NAD HEENT: NCAT, EOMI, not icteric. External ears normal. No rhinorrhea. Moist mucous membranes. Neck: Supple, full range of motion, no observable masses Lungs: No Respiratory distress. Lungs are clear to auscultation bilaterally. CV: RRR, no edema. No murmurs rubs or gallops Abdomen: Soft, nondistended, No rebound tenderness. MSK: No joint swelling, no redness. Some midline lumbar spine tenderness to palpation without any palpable step-offs or deformities. She does have 5-5 strength to the lower extremities with flexion and extension of all the joints. Unable to appreciate deep tendon reflexes of the patella secondary to history of bilateral knee arthroplasties. Unable to appreciate any deep tendon reflex deficits of the Achilles bilaterally. Sensation to lower extremities appear grossly intact in all dermatomal distributions. Skin: No rashes, petechiae, lesions. Normal color per patient. Neuro: Normal Gait, Grossly intact. Psych: Appropriate for situation. Medical Decision Making Vital signs reviewed and were unremarkable. Patient nontoxic well-appearing. Differential includes but is not limited to spinal nerve block sacral nerve distribution deficits, cauda equina syndrome, epidural hematoma, fracture, dislocation, UTI. Bladder scan did reveal that patient had about 800 cc in her bladder of urine after voiding here. Joes have concerns for possible spinal cord/canal pathology given recent procedure and so we will order an MRI of the lumbar spine. Also having some abdominal tenderness to palpation so we will order CT of the abdomen pelvis as well. Will evaluate for congestive heart failure given her shortness of breath that is primarily exertional. MRI imaging concerning for cauda equina syndrome. There are possibly acute T11 and acute on [id number] fractures. Given these findings and physical exam consistent with loss of deep tendon reflexes and overflow incontinence will consult spine surgery. She has remained stable during the entire ED stay. Laboratory workup was unremarkable for any evidence of LALY or troponinemia. Patient signed out to incoming ED physician pending ultimate disposition and transfer for cauda equina syndrome. Assessment/Plan 1. Overflow incontinence of urine (N39.490: Overflow incontinence) Ordered: MRI Spine Thoracic w/o Contrast 2. T12 vertebral fracture (S22.089A: Unspecified fracture of T11-T12 vertebra, initial encounter for closed fracture) 3. Cauda equina syndrome (G83.4: Cauda equina syndrome) Orders: lorazepam, 0.5 mg = 0.25 mL, Injection, IV Push, Once, Stop date 01/10/25 14:22:00 EDT, STAT, Startdate 01/10/25 14:22:00 EDT, 01/10/25 14:22:00 EDT B-Type Natriuretic Peptide Capillary Glucose POC CBC w/ Auto Diff Comprehensive Metabolic Panel CT Abdomen/Pelvis w/ Contrast eGFR Extra Blue Tube Extra SST Tube MRI Spine Lumbar w/o Contrast Post Void Residual Troponin 0 Hr. Urinary Catheter Insertion XR Chest Single View Medications Administered Given gabapentin 300 mg Cap, 300 mg, Oral LORazepam 2 mg/mL Inj, 0.5 mg, IV Push Metoprolol tartrate 25 mg Tab, 12.5 mg, Oral Disposition Plan Plan for transfer to higher level of care. Problem List/Past Medical History Ongoing Anemia Arthritis Asthma CAD (coronary artery disease) Chronic anemia Chronic GERD Compression fracture of T12 vertebra with routine healing Diastolic dysfunction Dysphagia Fall Fall at home APOORVA (generalized anxiety disorder) Heart attack Hepatic cyst History of traumatic head injury HTN Hx of skin cancer, basal cell Hyperlipidemia Mild pulmonary hypertension MRSA (methicillin resistant staph aureus) culture positive Seasonal allergies Seizure (more content not included)...[facility] JacksonComment on above:Result Comment: Electronically Signed By: Avery Garcia MD\.br\Date and Time Signed: 01/10/25 19:04 EDTED Patient Education Noteon [id number] Patient Education NoteED Patient Education NoteNormLouis [facility] ED Patient Summaryon [id number] Patient SummaryED Patient Summary [place] [id number] Patient Discharge Instructions Person Information Name: CARLY MARCELINO Age: 84 Years Arrival Date: 01/10/2025 09:17:27 Discharge Diagnosis: 1:Overflow incontinence of urine; 2:T12 vertebral fracture; 3:Cauda equina syndrome Primary Care Physician: HARDEEP MCKENZIE DO Provider Information Primary Provider: Avery Garcia MD Advanced Ecotherapist:None The exam and treatment you received in the Emergency Department were for an urgent problem and are not intended as complete care. It is important that you follow up with a doctor, nurse practitioner,or physician???s workforce development assistant for ongoing care. If your symptoms become worse or you do not improve asexpected and you are unable to reach your [...] opioids can be used to help relieve idewdrhy-pc-udhvxe pain and are often prescribed following a [...] as well, even when taken as directed: ??? Tolerance???meaning you might need to take more of the medication for the same pain relief ??? Physical dependence???meaning you have symptoms of withdrawal when a medication is stopped ??? Increased sensitivity to pain ??? Constipation ??? Nausea, vomiting, and dry mouth ??? Sleepiness and dizziness ??? Confusion ??? Depression ??? Low levels of testosterone that can result in lower sex drive, energy, and strength ??? Itching and sweating RISKS ARE GREATER WITH: ??? History of drug misuse, substance use disorder, or overdose ??? Mental health conditions (such as depression or anxiety) ??? Sleep apnea ??? Older age (65 years and older) ??? Avoid alcohol while taking prescription opioids. Also, unless specifically advised by your health care provider, medications to avoid include: ??? Benzodiazepines (such as Xanax or Valium) ??? Muscle relaxants (such as Soma or Flexeril) ??? Hypnotics (such as Ambien or Lunesta) ??? Other prescription opioids KNOW YOUR OPTIONS Talk to your health care provider about ways to manage your pain that don???t involve prescription opioids. Some of these options may actually work better and have fewer risks and side effects. Options may include: ??? Pain relievers such as acetaminophen, ibuprofen, and naproxen ??? Some medication that are also used for depression or seizures ??? Physical therapy and exercise ??? Cognitive behavioral therapy, a psychological, goal-directed approach, in which patients learn how to modify physical, behavioral, and emotional triggers of pain and stress. IF YOU ARE PRESCRIBED OPIOIDS FOR PAIN: ??? Never take opioids in greater amounts or more often than prescribed. ??? Follow up with your primary health care provider. o Work together to create a plan on how to manage your pain. o Talk about ways to help manage your pain that don???t involve prescription opioids. o Talk about any and all concerns and side effects. ??? Help prevent misuse and abuse o Never sell or share prescription opioids. o Never use another person???s prescription opioids. ??? Store prescription opioids in a secure place and out of reach of others (this may include visitors, children, friends, and family). ??? Safely dispose of unused prescription opioids: Find your community drug take-back program or your pharmacy mail-back program, or flush them down the toilet, following guidance from the Food and Drug Administration (www.fda.gov/Drugs/ResourcesForYou). ??? Visit www.cdc.gov/drugoverdose to learn about the risks of opioids abuse and overdose. ??? If you believe you may be struggling with addiction, tell your health neonatal intensive care nurse and askfor guidance or call [facility]???S National Helpline at 5-592-456-ZTYJ. p Source: [employer] (more content not included)...[facility] – JacksonExtra Blueon [id number] Collected PlasmaYesInvalid Interpretation [facility] HospitalComment on above:Performed By: #### [id number] #### [facility] [address], [place] [address]Uxl-Xtxgnqx Noteon [id number]-Arrival NotePre-Arrival Note Pre-Arrival Summary Name: JIMMY Current Date: 01/10/2025 09:17:33 EDT Gender: Female Date of : Age: 84 Pre-Arrival Type: EMS ETA: 01/10/2025 09:41:00 EDT Primary Care Physician: Presenting Problem: dehydration and weakness Pre-Arrival User: Herbert Jackson RN Referring Source: Location: CT Completion Date/Time: 01/10/2025 09:11:00 [facility] Emergency Department Pre-Hospital Report Form Vital Signs: Pre-Hospital Report: Treatment in Route: Response to Treatment: Misc. Issues:[facility] JacksonTelephone Encounteron 01-10-2025 Patient Centered Care Specialist Authentication Interface Message TextDiscussed Ms. Marcelino's care with the treating provider at [facility] Dr. Wilman Watson on 01/10/[address] 20:[address] Watson described Ms. Marcelino as in 84-year-old female with a past medical history of CAD, HF, and chronic T12 compression #, who is actively followed [...] extremities. The physical examination performed by the [facility] providers did not note any lower extremity weakness, numbness, with essentially normal rectal tone, but did note a PVR of 800 mL for which they placed a Kunz catheter. 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 In terms of her laboratory investigations, she did not have any significant elevated white blood cell count or evidence on her urinalysis of findings consistent with urinary tract infection. I reviewed her MR T and MR L-spine that were performed at [facility] which demonstrate thoracic and lumbar spondylosis [...] equina compression given she lacks any other symptoms of the syndrome including saddle anesthesia, decreased rectal tone, or any weakness or numbness in her lower extremities. I did suggest that they obtain standing L-spine x-rays in order to evaluate her alignment in the upright position and ensure that the stenosis, particularly secondary to her T12 fracture is not under appreciated on her supine imaging. Additionally, I offered to provide her with a full consultation should she wish, which would be facilitated by an ED to ED transfer from [facility] to [facility]. Dr. Watson advised that he would discuss with Ms. Marcelino how she wished to proceed, and would contact the [facility] transfer center to finalize the plan. Janny Martinez MD MA Department of Neurological Surgery [id number] [place], [address] ZbapavCre MetroHealth SystemTroponin 0 Hr.on [id number] HS7.00 pg/mLLow10.10-27.10[facility] HospitalComment on above:Result Comment: The 95% CI (Confidence Interval) PPV (Positive Predictive Value) for myocardial infarction in females is 38 pg/mL, in males 51 pg/mL. The results should be used in conjunction with clinical conditions of myocardial infarction. (Access High Sensitivity Troponin I Instructions For Use, [employer], October 2017)Performed By: #### [id number] #### [facility] [address], [place] [address]FB Chest Single Viewon [id number] Chest Single ViewExam Date/Time: 01/10/2025 10:55 EDT Reason for Exam: Shortness of breath (SOB) Report IMPRESSION: NO RADIOGRAPHIC EVIDENCE OF ACUTE INTRATHORACIC PROCESS. EXAM: XR Chest Single View History: Shortness of breath Technique: Portable AP view of the chest. Comparison: 04/11/2024 Findings: Atherosclerotic calcification of the thoracic aorta. The cardiomediastinal silhouette is within normal limits. No pneumothorax, pleural effusion, or consolidation. Postsurgical changes of bilateral shoulder arthroplasty. No acute osseous abnormality. Ordering Provider: Avery Garcia FINAL REPORT Dictated: 01/10/2025 11:22 am Riaz Clemente DO Signed (Electronic Signature): 01/10/2025 11:22 am Signed by: Riaz Clemente DO Transcribed by: BRENDA Technologist: BiankaAvita Health System Bucyrus HospitaleGFRon [id number] mL/min/1.73 l5Dwgdhk>=59Av[facility] HospitalComment on above:Performed By: #### [id number] #### [facility] [address], [place] [address]A Urineon [id number] identified Cx Nom (U)Microbiology PROCEDURE: Urine Culture [R1] SOURCE: U CleanCatch BODY SITE: COLLECTED DATE/TIME: 12/12/2024 13:59 EDT RECEIVED DATE/TIME: 12/12/2024 16:27 EDT START DATE/TIME: 12/12/2024 16:27 EDT FREE TEXT SOURCE: HARDEEP MCKENZIE DO, DO, SETH M FINAL REPORTS Final Report [] Verified Date/Time: 12/14/2024 06:49 EDT 300 cfu/ml Mixed skin contaminants Performing Locations R1: This test was performed at: [facility], [address] [place] [address], [id number] , , XpquheKruyyeHolzer Medical Center – JacksonComment on above:Performed By: #### [id number] #### [facility] [address] [place] [address]Ytmoryqccc with Microon [id number] (U)Light-YellowNormal YellowAvita Health System Bucyrus HospitalComment on above:Result Comment: Microscopic readings are only performed on those samples that meet specific criteria set forth by [facility].Performed By: #### [id number] #### [facility] [address] [place] [address]Pdanwih (U) [Mass/Vol]NegativeNormalNegativeAvita Health System Bucyrus HospitalComment on above:Performed By: #### [id number] #### [facility] [address] [place] [address]Igcbayp Ql (U)NegativeNormalNegCleveland Clinic Union Hospital Comment on above:Performed By: #### [id number] #### [facility] [address] [place] [address]JM BloodNegativeNormalNegativeAvita Health System Bucy[facility] Hospital Comment on above:Performed By: #### [id number] #### [facility] [address] [place] [address]AC ClarityClearNormalClearAvita Health System Bucyrus HospitalComment on above:Performed By: #### [id number] #### [facility] [address], [place] [address]EG Leuk EstNegativePremier Health [facility] Comment on above:Performed By: #### [id number] #### [facility] [address], [place] [address]LL NitriteNegativeNormalNegCleveland Clinic Union Hospital Comment on above:Performed By: #### [id number] #### [facility] [address], [place] [address]AC pH7.0Invalid Interpretation Code5.0-9.0[facility] HospitalComment on above:Performed By: #### [id number] #### [facility] [address], [place] [address]JQ ProteinNegativeNoWVUMedicine Barnesville Hospital Comment on above:Performed By: #### [id number] #### [facility] [address], [place] [address]SD Spec Grav1.014Invalid Interpretation Code1.005-1.030[facility] HospitalComment on above:Performed By: #### [id number] #### [facility] [address], [place] [address]CS UrobilinogenNegativeNormalNegCleveland Clinic Union HospitalComment on above:Performed By: #### [id number] #### [facility] [address], [place] [address]Fdhduymnsrnw (U) [Mass/Vol]NegativeNormalNegCleveland Clinic Union HospitalComment on above:Performed By: #### [id number] #### [facility] [address], [place] [address]Vntepnfbfc Visit Summaryon [id number] Visit Summary Ambulatory Visit Summary CARLY MARCELINO :1940 Visit Date:10/27/2024 Ambulatory Visit Instructions Your Diagnosis Urge incontinence Your Care Team Attending Physician - Nia De Leon Primary Care Physician - HARDEEP MCKENZIE DO This Is Your Medications List Fish Oil acetaminophen (acetaminophen 325 mg Tab) cetirizine (Zyrtec) citalopram (citalopram 20 mg Tab) famotidine (famotidine 40 mg Tab) ferrous sulfate (ferrous sulfate 325 mg Tab) gabapentin (gabapentin 300 mg Cap) lisinopril (lisinopril 30 mg Tab) lorazepam (LORazepam 0.5 mg Tab) magnesium oxide (magnesium oxide 400 mg Tab) metoprolol (Metoprolol tartrate 25 mg Tab) mirabegron (Myrbetriq 25 mg oral tablet, extended release) montelukast (montelukast 10 mg Tab) multivitamin with minerals (Multivitamins and Minerals oral tablet) pravastatin (pravastatin 40 mg Tab) tramadol (traMADOL 50 mg Tab) Procedures Performed PCI - Percutaneous coronary intervention (11/24/2021), Eye surgery (2003), Back sx, begnign tumor removal, Bilateral knee sx, bilateral shoulder sx, Breast biopsy sample, left foot reconstruction, pharygeal plasty. Discharge Vitals Temperature (Tympanic) 36.9 ???C Heart Rate (Peripheral) 58 Blood Pressure 136/80 Height 170 cm Height 67 in Weight 73.4 kg Weight 161.819 lb BMI 25.4 Medications What How Much When Instructions New mirabegron (Myrbetriq 25 mg oral tablet, extended release) 1 Tablets By Mouth Every day Refills: 3 Pickup at [facility] Unchanged acetaminophen (acetaminophen 325 mg Tab) 2 Tablets By Mouth Every 6 hours as needed for Pain Unchanged cetirizine (Zyrtec) 10 Milligram By Mouth Every day as needed for Allergy symptoms Unchanged citalopram (citalopram 20 mg Tab) 1 Tablets By Mouth Every day Unchanged famotidine (famotidine 40 mg Tab) 1 Tablets By Mouth Every day Unchanged ferrous sulfate (ferrous sulfate 325 mg Tab) 1 Tablets By Mouth Every day Unchanged Fish Oil 1 Capsules By Mouth At bedtime Unchanged gabapentin (gabapentin 300 mg Cap) 1 Capsules By Mouth 3 times a day Unchanged lisinopril (lisinopril 30 mg Tab) 1 Tablets By Mouth Every day Unchanged lorazepam (LORazepam 0.5 mg Tab) 1 Tablets By Mouth Every 8 hours as needed for as neededfor anxiety Unchanged magnesium oxide (magnesium oxide 400 mg Tab) 1 Tablets By Mouth At bedtime Unchanged metoprolol (Metoprolol tartrate 25 mg Tab) 0.5 Tablets By Mouth 2 times a day Unchanged montelukast (montelukast 10 mg Tab) 1 Tablets By Mouth Every day Unchanged multivitamin with minerals (Multivitamins and Minerals oral tablet) Unchanged pravastatin (pravastatin 40 mg Tab) 1 Tablets By Mouth Every day at bedtime Unchanged tramadol (traMADOL 50 mg Tab) 1 Tablets By Mouth Every 4 hours as needed for as needed for pain Pharmacy Information [facility]: [address] [place], [place] [id number] [phone] Allergies hydroCHLOROthiazide (Hyponatremia) Depakote Dilantin Norvasc Procardia TEGretol labetalol Problems Ongoing - Any problem that you are currently receiving treatment for. Arthritis Asthma CAD (coronary artery disease) Chronic anemia Chronic GERD Compression fracture of T12 vertebra with routine healing Diastolic dysfunction Dysphagia Fall Fall at home APOORVA (generalized anxiety disorder) Hepatic cyst HTN Hyperlipidemia Mild pulmonary hypertension MRSA (methicillin resistant staph aureus) culture positive Seasonal allergies Seizure disorder Patient Survey You may receive a survey via text or e-mail asking about your office visit. Please share your experience with us by completing your survey. We appreciate your feedback and thank you for choosing us for your care. Patient Portal You may access all of your results and other medical record information on our secure patient portal. If you are not signed up for this yet, please contact [employer] at [phone] to get signed up today. Language Information Language assistance services are available as needed. [facility] Ambulatory Visit Summary CARLY MARCELINO :1940 Visit Date:10/27/2024 Ambulatory Visit Instructions Your Diagnosis Mixed incontinence Your Care Team Attending Physician - Nia De Leon Primary Care Physician - HARDEEP MCKENZIE DO This Is Your Medications List Fish Oil acetaminophen (acetaminophen 325 mg Tab) cetirizine (Zyrtec) citalopram (citalopram 20 mg Tab) famotidine (famotidine 40 mg Tab) ferrous sulfate (ferrous sulfate 325 mg Tab) gabapentin (gabapentin 300 mg Cap) lisinopril (lisinopril 30 mg Tab) lorazepam (LORazepam 0.5 mg Tab) magnesium oxide (magnesium oxide 400 mg Tab) metoprolol (Metoprolol tartrate 25 mg Tab) mirabegron (Myrbetriq 25 mg oral tablet, extended release) montelukast (montelukast 10 mg Tab) multivitamin with minerals (Multivitamins and Minerals oral tablet) pravastatin (pravastatin 40 mg Tab) tramadol (traMADOL 50 mg Tab) Procedures Performed PCI - Percutaneous coronary intervention (11/24/2021), Eye surgery (2003), Back sx, begnign tumor removal, Bilateral knee sx, bilateral shoulder sx, Breast biopsy sample, left foot reconstruction, pharygeal plasty. Discharge Vitals Temperature (Tympanic) 36.9 ???C Heart Rate (Peripheral) 58 Blood Pressure 136/80 Height 170 cm Height 67 in Weight 73.4 kg Weight 161.819 lb BMI 25.4 Medications What How Much When Instructions New mirabegron (Myrbetriq 25 mg oral tablet, extended release) 1 Tablets By Mouth Every day Refills: 3 Pickup at [facility] Unchanged acetaminophen (acetaminophen 325 mg Tab) 2 Tablets By Mouth Every 6 hours as needed for Pain Unchanged cetirizine (Zyrtec) 10 Milligram By Mouth Every day as needed for Allergy symptoms Unchanged citalopram (citalopram 20 mg Tab) 1 Tablets By Mouth Every day Unchanged famotidine (famotidine 40 mg Tab) 1 Tablets By Mouth Every day Unchanged ferrous sulfate (ferrous sulfate 325 mg Tab) 1 Tablets By Mouth Every day Unchanged Fish Oil 1 Capsules By Mouth At bedtime Unchanged gabapentin (gabapentin 300 mg Cap) 1 Capsules By Mouth 3 times a day Unchanged lisinopril (lisinopril 30 mg Tab) 1 Tablets By Mouth Every day Unchanged lorazepam (LORazepam 0.5 mg Tab) 1 Tablets By Mouth Every 8 hours as needed for as neededfor anxiety Unchanged magnesium oxide (magnesium oxide 400 mg Tab) 1 Tablets By Mouth At bedtime Unchanged metoprolol (Metoprolol tartrate 25 mg Tab) 0.5 Tablets By Mouth 2 times a day Unchanged montelukast (montelukast 10 mg Tab) 1 Tablets By Mouth Every day Unchanged multivitamin with minerals (Multivitamins and Minerals oral tablet) Unchanged pravastatin (pravastatin 40 mg Tab) 1 Tablets By Mouth Every day at bedtime Unchanged tramadol (traMADOL 50 mg Tab) 1 Tablets By Mouth Every 4 hours as needed for as needed for pain Pharmacy Information [facility]: [address] [place], [place] [id number] [phone] Allergies hydroCHLOROthiazide (Hyponatremia) Depakote Dilantin Norvasc Procardia TEGretol labetalol Problems Ongoing - Any problem that you are currently receiving treatment for. Arthritis Asthma CAD (coronary artery disease) Chronic anemia Chronic GERD Compression fracture of T12 vertebra with routine healing Diastolic dysfunction Dysphagia Fall Fall at home APOORVA (generalized anxiety disorder) Hepatic cyst HTN Hyperlipidemia Mild pulmonary hypertension MRSA (methicillin resistant staph aureus) culture positive Seasonal allergies Seizure disorder Patient Survey You may receive a survey via text or e-mail asking about your office visit. Please share your experience with us by completing your survey. We appreciate your feedback and thank you for choosing us for your care. Patient Portal You may access all of your results and other medical record information on our secure patient portal. If you are not signed up for this yet, please contact [employer] at [phone] to get signed up today. Language Information Language assistance services are available as needed. 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 denies having incontinence Pt. denies having pain with urination Pt. denies having gross hematuria Pt. denies having abd pain Pt. denies having flank pain pt states most of her issues happen during the night or when she waits too long to urinate History of Present Illness Staff HPI reviewed and agree. Review of Systems PHQ Score Initial Depression Screen Score: 0 SCORE no fever, chills, malaise, myalgia. no rash/lesions. no chest pain, palpitations, or SOB. no abdominal pain, nausea, vomiting. no unilateral calf swelling, redness, pain Physical Exam Vitals & Measurements T: 36.9 ???C(Tympanic) HR: 58(Peripheral) BP: 136/80 HT: 170 cm HT: 67 in WT: 73.4 kg WT: 161.819 lb BMI: 25.4 General: nontoxic, well-nourished, appears stated age Mouth: moist mucosa Lungs: normal respiratory effort Cardio: regular rate, good distal perfusion Abdomen: nondistended, no suprapubic distention or tenderness, no CVA tenderness Neurologic: Grossly normal Skin: No rashes or suspicious lesions Assessment/Plan PEPPER PICKER referral from Dr. Mckenzie for incontinence. 1. Urge incontinence (N39.41: Urge incontinence) Pt unable to provide UA today PVR today 0ml (pt voided last about 1.5 hours ago) Pt here for incontinence referral. Pt reports that majority of her symptoms are throughout the night and if she waits too long to use the restroom. Pt reports this is only urge incontinence, not stress. Pt reports she drinks mainly water throughout the day but does not drink much. She also reports that she does drink right up until bedtime. Pt also reports that she has lymphedema in her lower extremities, discussed elevating legs in the late afternoon to help reduce some of the fluid shift. Pt denies constipation, DM, kidney stones, hematuria or weak stream. Discussed tx options for bothersome urinary sx including oral medications & Botox. Medication management includes anticholinergics and beta-3 agonists. I explained the most common side effects ofanticholinergics are dry mouth, dry eyes, and constipation. We also discussed that there is a documented potential side effect of mental status changes/confusion in the elderly, but that this risk isquite low. Beta-3's (Myrbetriq/Gemtesa) are often preferable due to lower side effect profile. We will start with Myrbetriq 25mg. If this is cost- prohibitive, pt knows to call the office and we will send Gemtesa 75mg. If both are cost-prohibitive, will send Trospium 20mg PO BID. We briefly discussed cysto/Botox at appointment today being next step. -Start Myrbetriq 25mg PO daily, pt to call if cost-prohibitive -If so, will send Gemtesa 75mg PO daily -If both cost-prohibitive, send Trospium 20mg PO BID -Increase water intake -Timed voids -Limit HS fluids, elevate lower extremities during the day -F/U 3 months with PVR Ordered: E&M of New Patient Moderate 45-59 Min 46862 Orders: mirabegron, 25 mg = 1 tab(s), Oral, Daily, # 30 tab(s), Refills(s) 3, Pharmacy: [facility], 170, cm, 10/27/24 13:34:00 EDT, Height/Length Dosing, 73.4, kg, 10/27/24 13:34:00 EDT, Weight Dosing 1126F Pain severity quantified; no pain present 10221 Measure Post Void residual urine and/or bladder capacity by US- non-imaging Current tobacco non-user 1036F Functional status assessed 1170F Medication list documented in medical record 1159F Most recent diastolic blood pressure >=90 mm Hg 3080F Review of all meds by a prescribing practitioner or clinical pharmacist documented in EHR 1160F Screened for tobacco use AND received tobacco cessation intervention 4004F Systolic BP 130-139 mm Hg (Most Recent) 3075F Urnls Dip Stick Auto w/o Microscopy POC 60719 Follow-up With When Contact Information Nia De Leon URL Within 3 months Additional Instructions: w/ PVR Patient Education Overactive Bladder, Adult Total time spent reviewing previous notes/results/external documents, preparing the chart, conducting the encounter with the patient and family, ordering tests/medications, and documenting the encounter was 40 minutes. Problem List/Past Medical History Ongoing Arthritis Asthma CAD (coronary artery disease) Chronic anemia Chronic GERD Compression fracture of T12 vertebra with routine healing Diastolic dysfunction Dysphagia Fall Fall at home APOORVA (generalized anxiety disorder) Hepatic cyst HTN Hyperlipidemia Mild pulmonary hypertension MRSA (methicillin resistant staph aureus) culture positive Seasonal allergies Seizure disorder Historical No qualifying data Procedure/Surgical History PCI - Percutaneous coronary intervention (11/24/2021), Eye surgery (2003), Back sx, begnign tumor removal, Bilateral knee sx, bilateral shoulder sx, Breast biopsy sample, left foot recons (more content not included)...[facility] JacksonComment on above:Result Comment: Electronically Signed By: Nia De Leon J\.br\Date and Time Signed: 10/27/24 14:12 EDTTelephone Encounter on [id number] Authentication Interface Message TextNeurology Clinical Gaming Manager Note Attempted to call patient. LVM to return call to the Neurology department to schedule a follow units p neurology appt for TBI with Dr Franco in December. Letter sent YUSUF Bray, RN, [facility] HOSPITALRN Clinical Gaming Manager, [facility] SystemProess Noteson [id number] Authentication Interface Message TextTBI NEUROLOGY INITIAL CONSULT Carly Marcelino Age: [age] year old PCP: No primary care provider on file. 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 Went for craniotomy and evacuation followed by JOHNY richter. Did well post-op. No headaches. Returned to full function. Sy, takes care of her own bills, only thing she is not doing is driving, and she wants to get back to doing that. Denies all complaints referable to the SDH or surgery. Allergies: Allergies[1] Medications: Current Outpatient Medications Medication Sig Dispense Refill amantadine (SYMMETREL) 50 MG/5ML SOLN oral syrup 10 mL by NG Tube route 2 times daily. 473 mL 0 chlorhexidine (PERIDEX) 0.12 % oral solution Take 15 mL by mouth 2 times daily. 118 mL 3 multivitamins with minerals (CEROVITE) LIQD oral liquid 15 mL by NG Tube route daily. 236 mL 0 polyethylene glycol (MIRALAX) packet Dissolve 1 Packet (17 g total) in 8 ounces of liquid and drink daily. 12 Each 3 doxazosin (CARDURA) 4 MG tablet Take 1 Tablet by mouth daily. 30 Tablet 0 folic acid 1 MG tablet Take 1 Tablet by mouth daily for 2 doses. 2 Tablet 0 lisinopril (ZESTRIL) 5 MG tablet Take 1 Tablet by mouth daily. 30 Tablet 0 levETIRAcetam (KEPPRA) 100 MG/ML oral solution Take 5 mL by mouth 2 times daily. 240 mL 1 melatonin 3 MG TABS tablet Take 1 Tablet by mouth at bedtime. 90 Tablet 0 senna (SENOKOT) 8.6 MG tablet Take 1 Tablet by mouth daily as needed. 30 Tablet 0 spironolactone (ALDACTONE) 25 MG tablet Take 1 Tablet by mouth. triamterene-hydrochlorothiazide (MAXZIDE) 37.5-25 MG tablet Take 1 Tablet by mouth daily. vitamin E 400 UNIT capsule Take by mouth every 24 hours. B Complex Vitamins CAPS Take 1 Capsule by mouth daily. benzonatate (TESSALON) 200 MG capsule TAKE 1 CAPSULE BY MOUTH THREE TIMES DAILY FOR 10 DAYS NEEDED FOR COUGH cetirizine (ZyrTEC) 10 MG tablet Take 10 mg by mouth daily. Cholecalciferol (Vitamin D-3) 25 MCG (1000 UT) CAPS Cholecalciferol (Vitamin D3) Active PO Daily May 14, 2023 1:00am FreeTextSig: Orally Daily; Note: Source Status: Taking; Provider: Michael Yip ( ) Coenzyme Q10 (Co Q 10) 100 MG CAPS Take by mouth every 24 hours. Cyanocobalamin 1000 MCG CAPS Cyanocobalamin (Vitamin B-12) Active 1000 MCG PO Daily June 28, 2023 12:00am DOCOSAHEXAENOIC ACID ORAL Take 1 Capsule by mouth daily. ferrous sulfate 325 (65 Fe) MG tablet Take 325 mg by mouth daily. gabapentin (NEURONTIN) 300 MG capsule guaifenesin (MUCINEX) 600 MG SR tablet Take 1,200 mg by mouth. LORazepam (ATIVAN) 0.5 MG tablet Take 0.5 mg by mouth 3 times daily as needed. losartan (COZAAR) 50 MG tablet Take 50 mg by mouth. Magnesium Oxide 400 MG CAPS Take by mouth daily. metoprolol (LOPRESSOR) 25 MG tablet Take 12.5 mg by mouth. montelukast (SINGULAIR) 10 MG tablet Take 10 mg by mouth daily. nitroglycerin (NITROSTAT) 0.4 MG sublingual tablet Nitroglycerin Active 0.4 MG SUBLINGUAL Q5M April 30, 2023 1:00am calcium, elemental, (OSCAL,) 500 MG tablet Take by mouth every 24 hours. pravastatin (PRAVACHOL) 40 MG tablet Take 40 mg by mouth daily. albuterol (PROVENTIL HFA) INHALATION HFA inhaler (VENTOLIN,PROAIR,PROVENTIL) 90mcg INHALE 2 PUFFS EVERY 6 HOURS NEEDED FOR WHEEZING Ascorbic Acid 250 MG CHEW Take by mouth every 12 hours. No current facility-administered medications for this visit. PMH: Medical History[2] PSH: Surgical History[3] Medical history, surgical history, and problem list reviewed and updated as necessary. ROS: General: Denies weight change, fatigue, weakness, fever/chills, night sweats. Head: Per HPI Eyes: Denies Ears: Hard of hearing; has not had an audiology screen Nose/Sinuses: Denies Mouth/Throat: Denies Neck: Denies Respiratory; Denies Cardiac: Denies GI: Denies Vascular: Denies Neurologic: See HPI. Hematologic: Denies Endocrine: Denies Skin: Denies BP 177/86 Pulse 62 Neuro Exam: MSE: Alert, oriented to person, place, time; attentive; concentration intact (able to spell WORLD f/b); speech normal (nl rate/flow/comprehension/naming/repetition); memory intact (immediate, short, long) CN: Pupils: L 3mm reactive, R 3mm reactive. Visual acuity grossly intact OU. EOM are full, no nystagmus, no ptosis. Sensation V1,V2,V3 intact and MM strong. Face symmetric and strong bilat. No auditory abnormalities. Palate symmetric. Strong swallow. Gag present. Shoulder shrug and SCM 5/5 strength bilat. Tongue midline. Motor: Normal tone and bulk throughout. No fascicualtions. Upper extremity power: Right: Deltoid 5/5 Left: Deltoid 5/5 Biceps 5/5 Biceps 5/5 Triceps 5/5 Triceps 5/5 Wrist F/E 5/5 Wrist F/E 5/5 Finger flexion 5/5 Finger flexion 5/5 Interossei 5/5 Interossei 5/5 abductor pollicis (more content not included)...NormalThe [employer] Basophils Auto (Bld) [#/Vol]on 57-01-4805Stgrmnrjk (Bld) [#/Vol]Automated basophil count0.0-2.0[facility] CenterBasophils/100 WBC Auto (Bld)on 41-89-5886Uwsvyxbeo/100 WBC (Bld)Automated basophil %0.0-0.2FWilson Memorial HospitalCBC w/ Auto Diffon 61-18-3561Pjzpukjze/100 WBC (Bld)0.5 % Normal0.0-2.0[facility] HospitalComment on above:Performed By: #### [id number] #### [facility] [address] [place] [address] 40430Jssvifymz/Leukocytes Auto (Bld) [Pure # fraction]0.0 E9/LNormal 0.0-0.2FWright-Patterson Medical CenterComment on above:Performed By: #### [id number] #### [facility] [address] [place] [address] 33265Ipgsholzsfx (Bld) [#/Vol]0.1 E9/LNormal0.0-0.5FWright-Patterson Medical CenterComment on above:Performed By: #### [id number] #### [facility] [address] [place] [address] 37936Ldvzghivvlb/100 WBC (Bld)2.4 %Normal0.0-8.0[facility] HospitalComment on above:Performed By: #### [id number] #### [facility] [address] [place] [address] 43217Ifdfustkccz distribution width (RBC) [Ratio]13.8 %Normal 10.9-14.2FWright-Patterson Medical CenterComment on above:Performed By: #### [id number] #### [facility] [address] [place] [address] 27444Xbnsuqrlmf (Bld) [Volume fraction]37.7 %Qdzdfd14.0-46.0[facility] HospitalComment on above:Performed By: #### [id number] #### [facility] [address] [place] [address] 23568Wihynwccjq (Bld) [Mass/Vol]12.8 g/cYHtgskb58.0-16.0[facility] HospitalComment on above:Performed By: #### [id number] #### [facility] [address] [place] [address] 39539Vcqvzdgkajg (Bld) [#/Vol]1.2 E9/LNormal1.0-4.0[facility] HospitalComment on above:Performed By: #### [id number] #### [facility] [address] [place] [address] 20859Pjfhjyavlii/100 WBC (Bld)18.9 %Gugtin47.0-50.0[facility] HospitalComment on above:Performed By: #### [id number] #### [facility] [address] [place] [address] 02067ZKG (RBC) [Entitic mass]31.4 xgMgtjbe65.0-34.0[facility] HospitalComment on above:Performed By: #### [id number] #### [facility] [address] [place] [address] 07955YNPM (RBC) [Mass/Vol]33.9 g/mYIwmevp64.4-36.0[facility] HospitalComment on above:Performed By: #### [id number] #### [facility] [address] [place] [address] 75643SBS (RBC) [Entitic vol]92.7 xYUpcnhx19.0-100.0[facility] HospitalComment on above:Performed By: #### [id number] #### [facility] [address] [place] [address] 34306Tragynjup (Bld) [#/Vol]0.5 E9/LNormal0.2-1.0[facility] HospitalComment on above:Performed By: #### [id number] #### [facility] [address] [place] [address] 57917Gonrpektfzr (Bld) [#/Vol]4.4 E9/LNormal2.0-7.5FWright-Patterson Medical CenterComment on above:Performed By: #### [id number] #### [facility] [address] [place] [address] 08976Bmmojqehqrn/100 WBC (Bld)70.0 %Gdmsep90.0-75.0[facility] HospitalComment on above:Performed By: #### [id number] #### [facility] [address], [place] [address]Ghamvogu891.0 E9/AFmcwgz779.0-500.0[facility] Comment on above:Performed By: #### [id number] #### [facility] [address], [place] [address]Jnhcfljj mean volume (Bld) [Entitic vol]7.0 fLNormal6.4-10.8 [facility] HospitalComment on above:Performed By: #### [id number] #### [facility] [address] [place] [address] 33670AIS (Bld) [#/Vol]4.1 E12/LLow4.3-5.9[facility] Comment on above:Performed By: #### [id number] #### [facility] [address] [place] [address] 04415AXH corrected for nucl RBC Auto (Bld) [#/Vol]6.2 E9/LNormal 4.0-11.0[facility] HospitalComment on above:Performed By: #### [id number] #### [facility] [address] [place] [address] 34769JBKWIVDDPGajfxms By: SYSTEM SYSTEM on 05-26-2024 Albumin/Globulin [Mass ratio]1.6 {ratio}Normal1.1 - 2.2Remisol ChemALP [Catalytic activity/Vol]48 [iU]/vTmrapw69 - 98 Int._Unit/LRemisol ChemALT No additional P-5'-P [Catalytic activity/Vol]8 [iU]/dNormal6 - 46 Int._Unit/L Remisol ChemAnion gap [Moles/Vol]7 mmol/LNormal6 - 16 mEq/LRemisol ChemAST [Catalytic activity/Vol]14 [iU]/dNormal5 - 43 Int._Unit/LRemisol ChemCholesterol in VLDL [Mass/Vol]20 mg/dLNormal7 - 40 mg/dLRemisol VwwhnVQS38 mL/min/1.73 m2 Normal>=59mL/min/1.73 g9Czgcysh ChemGlobulin (S) [Mass/Vol]2.6 g/dLNormal1.4 - 4.0 gm/dLRemisol ChemUrea nitrogen/Creatinine [Mass ratio]27 mg/cdKrre27 - 20 Remisol ChemCMPon 43-63-0786Ydxwfpf [Mass/Vol]4.1 g/dLNormal3.3-5.0[facility] HospitalComment on above:Performed By: #### [id number] #### [facility] [address] [place] [address] 18320Rnbxmzs/Globulin (S) [Mass conc ratio]1.9Dftpki7.1-2.2FWright-Patterson Medical CenterComment on above:Performed By: #### [id number] #### [facility] [address] [place] [address] 73741ECM [Catalytic activity/Vol]48 Int._Unit/WHxtznz84-35CjnbyrAvita Health System Bucyrus HospitalComment on above:Performed By: #### [id number] #### [facility] [address] [place] [address] 06506IPV No additional P-5'-P [Catalytic activity/Vol]8 Int._Unit/L Normal6-46[facility] HospitalComment on above:Performed By: #### [id number] #### [facility] [address] [place] [address] 40212Pmhxv gap [Moles/Vol]7 mmol/LNormal6-16[facility] HospitalComment on above:Performed By: #### [id number] #### [facility] [address] [place] [address] 48932TRH [Catalytic activity/Vol]14 Int._Unit/LNormal5-43[facility] HospitalComment on above:Performed By: #### [id number] #### [facility] [address] [place] [address] 11614Fbblotgad [Mass/Vol]0.5 mg/dLNormal0.0-1.1FWright-Patterson Medical CenterComment on above:Performed By: #### [id number] #### [facility] [address], [place] [address]Vfkwpqg [Mass/Vol]9.2 mg/dLNormal8.9-11.1FWright-Patterson Medical CenterComment on above:Performed By: #### [id number] #### [facility] [address], [place] [address]Pdzsdyyc [Moles/Vol]103 mmol/PYqvmvi451-337WlbbbqAvita Health System Bucyrus HospitalComment on above:Performed By: #### [id number] #### [facility] [address], [place] [address]JA0 [Moles/Vol]33 mmol/JNhpc98-27WcbsiaAvita Health System Bucyrus Hospital Comment on above:Performed By: #### [id number] #### [facility] [address], [place] [address]Iosglqffmx [Mass/Vol]0.7 mg/dLNormal0.5-1.3FWright-Patterson Medical CenterComment on above:Performed By: #### [id number] #### [facility] [address], [place] [address]Ddjhcplh (S) [Mass/Vol]2.6 g/dLNormal1.4-4.0[facility] HospitalComment on above:Performed By: #### [id number] #### [facility] [address], [place] [address]Eptxybs [Mass/Vol]81 mg/bKOjyexx72-719OyhvidAvita Health System Bucyrus HospitalComment on above:Performed By: #### [id number] #### [facility] [address], [place] [address]Ubsfvosrr [Moles/Vol]4.1 mmol/LNormal3.5-5.3FWright-Patterson Medical CenterComment on above:Performed By: #### [id number] #### [facility] [address], [place] [address]Pzxtdqo [Mass/Vol]6.7 g/dLNormal6.0-7.8[facility] HospitalComment on above:Performed By: #### [id number] #### [facility] [address], [place] [address]Ytlpen [Moles/Vol]139 mmol/WTssotq122-437UnqxyrAvita Health System Bucyrus HospitalComment on above:Performed By: #### [id number] #### [facility] [address], [place] [address]Tyay nitrogen [Mass/Vol]19 mg/dLNormal5-21[facility] HospitalComment on above:Performed By: #### [id number] #### [facility] [address], [place] [address]Rjpu nitrogen/Creatinine [Mass ratio]27 No JacggEars58-21DkvapbAvita Health System Bucyrus HospitalComment on above:Performed By: #### [id number] #### [facility] [address], [place] [address]Ihladmdtwxq in VLDL Calc [Mass/Vol]on 01-83-6832Qntvffrikln in VLDL [Mass/Vol]Cholesterol in VLDL [Mass/volume] in Serum or Plasma by calculation7-40[facility] Medical CenterEosinophils/100 WBC Manual cnt (Bld)on 89-78-8395Gkvzoblkaxc/100 WBC (Bld)Eosinophils/100 leukocytes in Blood by Manual count0.0-8.0[facility] Medical CenterErythrocyte distribution width Auto (RBC) [Ratio]on 84-86-2379Wkboejfysiy distribution width (RBC) [Ratio]Erythrocyte distribution width [Ratio] by Automated count10.9-14.2 [facility] Medical CenterEstimated glomerular filtration rate (GFR) non- Americanon 11-96-4338HTM/1.73 sq M.predicted among non-blacks MDRD (S/P/Bld) [Vol rate/Area]Estimated glomerular filtration rate (GFR) non->=59[facility] Medical CenterGlobulin Calc (S) [Mass/Vol]on 94-65-2386Wtzlklcz (S) [Mass/Vol]Serum globulin measurement by calculation (mass/volume)1.4-4.0[facility] Medical CenterHEMATOLOGYOrdered By: SYSTEM SYSTEM on 16-13-7786Acmgbxeug/100 WBC (Bld)0.5 %Normal0.0 - 2.0 %Remisol HemeBasophils/Leukocytes Auto (Bld) [Pure # fraction]0.0 E9/LNormal0.0 - 0.2 E9/LRemisol HemeEosinophils (Bld) [#/Vol]0.1 E9/LNormal0.0 - 0.5 E9/LRemisol HemeEosinophils/100 WBC (Bld)2.4 %Normal0.0 - 8.0 %Remisol HemeErythrocyte distribution width (RBC) [Ratio]13.8 %Cxtuyd65.9 - 14.2 %Remisol HemeHematocrit (Bld) [Volume fraction]37.7 %Iasrpi40.0 - 46.0 %Remisol HemeHemoglobin (Bld) [Mass/Vol]12.8 g/eQRizxvr95.0 - 16.0 gm/dLRemisol HemeLymphocytes (Bld) [#/Vol] 1.2 E9/LNormal1.0 - 4.0 E9/LRemisol HemeLymphocytes/100 WBC (Bld)18.9 %Normal 14.0 - 50.0 %Remisol HemeMCH (RBC) [Entitic mass]31.4 odFwjlmj73.0 - 34.0 pg Remisol HemeMCHC (RBC) [Mass/Vol]33.9 g/xQKqjdwx50.4 - 36.0 gm/dLRemisol HemeMCV (RBC) [Entitic vol]92.7 oIYkkgxi22.0 - 100.0 fLRemisol HemeMonocytes (Bld) [#/Vol]0.5 E9/LNormal0.2 - 1.0 E9/LRemisol HemeMonocytes/100 WBC (Bld)8.2 % Normal4.0 - 14.0 %Remisol HemeNeutrophils (Bld) [#/Vol]4.4 E9/LNormal2.0 - 7.5 E9/LRemisol CobzVlrbznvk840.0 E9/ROgxvwk144.0 - 500.0 E9/LRemisol HemePlatelet mean volume (Bld) [Entitic vol]7.0 fLNormal6.4 - 10.8 fLRemisol HemeRBC (Bld) [#/Vol]4.1 E12/LLow4.3 - 5.9 E12/LRemisol HemeWBC corrected for nucl RBC Auto (Bld) [#/Vol]6.2 E9/LNormal4.0 - 11.0 E9/LRemisol HemeHematocrit Auto (Bld) [Volume fraction]on 55-54-6870Ebanbicdsn (Bld) [Volume fraction]Hematocrit [Volume Fraction] of Blood by Automated count34.0-46.0[facility] Medical CenterHemoglobin [Mass/volume] in Bloodon 35-44-6157Tmlwnukcsw (Bld) [Mass/Vol] Hemoglobin [Mass/volume] in Blood12.0-16.0[facility] Laboratory - Chemistry and Chemistry - challengeOrdered By: SYSTEM SYSTEM on 24-42-3430Wwquhlb [Mass/Vol]4.1 g/dL3.3-5.0Remisol ChemBilirubin [Mass/Vol]0.5 mg/dL0.0-1.1Remisol ChemCalcium [Mass/Vol]9.2 mg/dL8.9-11.1Remisol ChemChloride [Moles/Vol]103 mmol/M261-657Udyzhwz ChemCholesterol [Mass/Vol]134 mg/dN458-760 Remisol ChemCholesterol in HDL [Mass/Vol]51 mg/dLRemisol ChemComment on above: Result Comment: '>= 60 LOW RISK' '<= 40 HIGH RISK'Cholesterol in LDL [Mass/Vol]72 mg/dL<=129Remisol ChemCO2 [Moles/Vol]33 mmol/YLwcg44-56Qmprodk ChemCreatinine [Mass/Vol]0.7 mg/dL0.5-1.3 Remisol ChemGlucose [Mass/Vol]81 mg/aT07-392Yudqzdw ChemPotassium [Moles/Vol]4.1 mmol/L3.5-5.3Remisol ChemProtein [Mass/Vol]6.7 g/dL6.0-7.8Remisol ChemSodium [Moles/Vol]139 mmol/S736-622Pqbujxl ChemTriglyceride [Mass/Vol]101 mg/dL<=149 Remisol ChemUrea nitrogen [Mass/Vol]19 mg/dL5-21Remisol ChemLaboratory - Hematology and Cell countsOrdered By: SYSTEM SYSTEM on 35-25-8486Nxadtjorqbg/100 WBC (Bld)70.0 %36.0-75.0Remisol HemeLeukocytes [#/volume] corrected for nucleated erythrocytes in Blood by Automated counon 33-39-2833LYM corrected for nucl RBC Auto (Bld) [#/Vol]Leukocytes [#/volume] corrected for nucleated erythrocytes in Blood by Automated coun4.0-11.0[facility] Lipid Panelon 69-18-5778Wtcdximufrx [Mass/Vol]134 mg/cGMflbkm457-724VahyvbAvita Health System Bucyrus HospitalComment on above:Performed By: #### [id number] #### [facility] [address], [place] [address]Vmcyenxduif in HDL [Mass/Vol]51 mg/dLInvalid Interpretation CodeAvita Health System Bucyrus HospitalComment on above:Result Comment: '>= 60 LOW RISK' '<= 40 HIGH RISK'Performed By: #### [id number] #### [facility] [address], [place] [address]Aewnlkjcyta in LDL [Mass/Vol]72 mg/dLNormal<=129[facility] HospitalComment on above:Performed By: #### [id number] #### [facility] [address], [place] [address]Dvomkpjpgmu in VLDL [Mass/Vol]20 mg/dLNormal7-40[facility] HospitalComment on above:Performed By: #### [id number] #### [facility] [address], [place] [address]Prajuqssfniv [Mass/Vol]101 mg/dLNormal<=149Av[facility] HospitalComment on above:Performed By: #### [id number] #### [facility] [address], [place] [address]Ygmjnhcirkm Auto (Bld) [#/Vol]on 42-22-2145Ugjvggerktm (Bld) [#/Vol]Lymphocytes [#/volume] in Blood by Automated count14.0-50.0[facility] HospitalH Auto (RBC) [Entitic mass]on 92-18-1837BWX (RBC) [Entitic mass]MCH [Entitic mass] by Automated count27.0-34.0[facility] HospitalHC Auto (RBC) [Mass/Vol]on 40-87-5184MGWE (RBC) [Mass/Vol]MCHC [Mass/volume] by Automated count31.4-36.0[facility] HospitalV Auto (RBC) [Entitic vol]on 07-59-8260SAS (RBC) [Entitic vol]MCV [Entitic volume] by Automated count80.0-100.0[facility] Medical CenterMonocytes Auto (Bld) [#/Vol]on 47-22-2050Ddkpqoewo (Bld) [#/Vol]Automated blood monocyte count 4.0-14.0[facility] Medical CenterNeutrophils Auto (Bld) [#/Vol]on 68-89-9053Surjxdnngrr (Bld) [#/Vol]Neutrophils [#/volume] in Blood by Automated count2.0-7.5FWilson Memorial HospitalNo Panel Informationon 05-26-2024 Alanine Aminotransferase (ALT/SGPT)8 Int._Unit/L6-46[facility] Medical CenterAlkaline Adgbkdxtazo85 Int._Unit/O28-11XvivbcgoeCincinnati Children'S Hospital Medical Center Aspartate Amino Transf (AST/SGOT)14 Int._Unit/L5-43[facility] Medical CenterBUN/Creatinine Ratio27 No LrnuqRxyh94-96ZundxjmgjCincinnati Children'S Hospital Medical Center Eosinophils # (Auto)0.1 E9/L0.0-0.5FWilson Memorial HospitalLymphocytes # (Manual)1.2 E9/L1.0-4.0[facility] Medical CenterPlatelet mean volume Auto (Bld) [Entitic vol]on 97-66-6420Sdfkuatf mean volume (Bld) [Entitic vol] Platelet mean volume [Entitic volume] in Blood by Automated count6.4-10.8 [facility] Medical CenterPlatelets Auto (Bld) [#/Vol]on 05-26-2024 Platelets (Bld) [#/Vol]Platelets [#/volume] in Blood by Automated count 150.0-500.0[facility] Medical CenterRBC Auto (Bld) [#/Vol]on 05-26-2024 RBC (Bld) [#/Vol]Erythrocytes [#/volume] in Blood by Automated countLow4.3-5.9 [facility] Memorial Hospitalerum or plasma albumin/globulin mass ratioon 57-07-4977Xzwvqxp/Globulin [Mass ratio]Serum or plasma albumin/globulin mass ratio1.1-2.2FOhioHealth Riverside Methodist Hospitalerum or plasma anion gap determinationon 41-82-7401Rndzg gap [Moles/Vol]Serum or plasma anion gap determination6[facility] Medical CentereGFRon 66-07-8602dKRC80 mL/min/1.73 n6Tjkahx>=59[facility] BaltimoreComment on above:Performed By: #### [id number] #### [facility] [address], [place] [address]Kufztexov Encounteron 60-81-1211Qfbpikkoypmbf Authentication Interface Message TextNeurology Clinical Gaming Manager Note Attempted to call patient. LVM informing her that I spoke with her daughter, Hebert last week who will make arrangements for transportation so she can see Dr Franco in person for her July appointment. YUSUF Bray, RN, [facility]IAL HOSPITALRN Clinical Gaming Manager, NeurologyCatskill Regional Medical Center SystemTelephone Encounteron [phone] Authentication Interface Message TextPt returning call, requesting another. Please contact. Thanks!NormalThe Long Island Community HospitalWhitenoise Networks SystemTelephone Encounteron [phone] Authentication Interface Message TextNeurology Clinical Gaming Manager Note Attempted to call patient. LVM to return call to this RN to discuss her transportation issues regarding her appt with Dr Franco in July. Corina Carranza, BSN, RN, CMSRN Clinical Gaming Manager, [facility] SystemUS carotid doppler BIon 24-61-7484KW carotid doppler [facility] [address] [place], [place] [id number] Ultrasound Report Signed Patient: Carly Marcelino MR#: [id number] : 1940 Acct:[id number] Age/Sex: 83 / F ADM Date: 04/22/24 [facility] Room: Type: [facility] Attending Dr: Royce Douglas MD Ordering Provider: Royce Douglas MD Date of Service: 04/22/24 US/US carotid doppler BI: I65.23 - Occlusion and stenosis of bilateral carotid lorraine... Copies to: Royce Douglas MD CAROTID DUPLEX INDICATION: Follow-up known carotid occlusive disease PROCEDURE: Color-flow duplex scanning is used to interrogate the extracranial carotid arterial system, as well as both vertebral arteries. Both carotid bifurcations show mild to moderate heterogeneous plaque formation. The proximal right internal carotid artery shows a highest peak systolic velocity of 62.7 cm/s with an end-diastolic velocity of 11 cm/s . The mid internal carotid artery measures 160 cm/s peak systolic and 34 cm/s end diastolic. The distal segment measures 146 cm/s peak systolic with an end diastolic velocity of 27.4 cm/s . The velocities of the right common carotid artery are 110 cm/s peak systolic and 16.8 cm/s end-diastolic proximally and 98.8 cm/s peak systolic and 16end diastolic distally. The peak systolic velocity ratio of the internal to the common carotid artery is 1.45. The right external carotid artery measures 72.5 cm/s peak systolic. The right vertebral artery is patent at 121 cm/s with antegrade flow. The proximal left internal carotid artery shows a highest peak systolic velocity of 75.2 cm/s with an end-diastolic velocity of 16.2 cm/s . The mid internal carotid artery measures 151 cm/s peak systolic and 32.9 cm/s end diastolic. The distal segment measures 95.6 cm/s peak systolic with an end diastolic velocity of 26.7 cm/s . The velocities of the left common carotid artery are 140 cm/s peak systolic and 12.5 cm/s end-diastolic proximally and 88.9 cm/s peak systolic and 18.1 cm/s end diastolic distally. The peak systolic velocity ratio of the internal to the common carotid artery is 1.08 . The left external carotid artery measures 100 cm/s peak systolic. The left vertebral artery is patent at 58.4 cm/s with antegrade flow. US/US carotid doppler BI IMPRESSION: Both carotid artery shows mild plaque formation. By velocity criteria there is 50-69% stenosis bilaterally. However, this is much closer to the lower end of that spectrum based on the images. Impression dictated by: Royce Douglas M.D.04/29/2024 11:06 AM Dictation Location: [place] [address] Tech: Shital Pina Transcribed By: MICHELINE 04/29/24 1106 Dictated By: Royce Douglas MD 04/29/24 1103 Signed By: 04/29/24 1106[facility] Physician GroupTelephone Encounteron 04-28-2024 Patient Centered Care Specialist Authentication Interface Message TextPatient called in today to schedule a TBI appointment with . I was unable to schedule a telephone appointment for her, patient is unable to come in due to she doesn't drive and has no transportation. Patient needs this appointment to be over the phone if possible, she also had a previous appointment that was scheduled but had to be canceled due to transportation Patient can be reached directly Phone numbers Please assist Thank JamalKettering Memorial Hospital SystemED Note-Physicianon [id number] Note-PhysicianED Note-Physician Basic Information Time Seen: Dyllan DEL RIO, Luis E Meraz 04/21/2024 14:40 Chief Complaint pt presents with coat zipper zipped on to neck skin. this nurse attempted to help take coat off andskin eaisly removed from zipper. small skin tear noted to area History of Present Illness 83-year-old female reports to Emergency Department with concerns of zipper of her coat getting caught on her neck. cannot remove the zipper. UTD on TDAP. Denies any other symptoms. Reports otherwise doing okay. Nurse reports that she was able to get the zipper off, and patient not having any symptoms. Denies any fevers or chills. Reports otherwise doing well. Review of Systems No other aggravating or relieving factors no other associated symptoms no other prior treatments orcomplaints. Family: Reviewed and noncontributory Social: lives at home Review of systems negative unless otherwise specified in the HPI. Physical Exam Vitals & Measurements T: 36.7 ???C(Oral) HR: 63(Peripheral) RR: 16 BP: 196/84 SpO2: 97% HT: 170 cm WT: 75.1 kg BMI: 25.99 General: The patient appears well and in no apparent distress. Patient is resting comfortably in chair. Afebrile Skin: Warm, dry, no pallor noted. Small abrasion located on the left aspect of the anterior neck. No active bleeding. Head: Normocephalic, atraumatic Neck: No JVD Eye: PERRLA, EOMI ENT: Moist mucus membranes Cardiovascular: Regular rate. normal peripheral perfusion Respiratory: No respiratory distress. no accessory muscle use. no obvious audible wheezing Chest Wall: no deformity Musculoskeletal: normal ROM, no deformity, no swelling GI: No obvious distention Neurological: A&O. moves all extremities equal strength and symmetry Psychiatric: Cooperative and appropriate Medical Decision Making MEDICAL DECISION MAKING Number and Complexity of Problems Differential Diagnosis: [] [facility] Data External documents reviewed: [] My EKG interpretation: [] My CT interpretation: [] My X-ray interpretation: [] My Ultrasound interpretation: [] Decision rules/scores evaluated: [] Discussed with: [] Treatment and Disposition ED Course: A 83-year-old female reports to the emergency department with concerns of a zipper getting caught on her neck. By the time I was able to examine the patient, the zipper had been removed. There is a small abrasion noted. Patient up-to-date on tetanus vaccine. No other acute findings. Discussed wound care to the patient. She was understanding. Follow-up with your primary care provider in3 to 5 days. If symptoms worsen, do not improve, or new symptoms arise please report back to emergency department for further evaluation. The patient was understanding and agreeable to plan moving forward. Shared decision making: [] Code status: [] Assessment/Plan Neck abrasion (S10.91XA: Abrasion of unspecified part of neck, initial encounter) Disposition Plan Patient Discharge Condition stable Discharge Disposition to home Discharge Prescription List Prescriptions No active prescription medications Follow-up With When Contact Information HARDEEP MCKEZNIE In 3 days 04/24/2024 EST [address], [address] [place] [address]- Business (1) Additional Instructions: Call Dr for diagnosis based follow up Patient Education Abrasion, Psid-zp-Tjln Attestation Patient seen and evaluated by the physician workforce development assistant. Attending physician was present in the emergency department and supervised care. This visit was performed by both the physician and an APC. I performed all aspects of the MDM as documented. This report was transcribed using voice recognition software. Every effort was made to ensure accuracy, however, inadvertently computerized exhaust emissions inspector mistakes may be present. Appropriate healthcare PPE was used in evaluating this patient. The patient was placed in a mask. The healthcare provider was wearing mask, gloves, and utilizing proper hand hygiene. All equipment was properly cleansed. I performed a substantive part of the MDM during the patient???s E/M visit. I personally made or approved the documented management plan and acknowledge its risk of complications. (Independent Interpretation) My (EKG/X-Ray/US/CT as applicable) interpretation as above. (Discussion) Management/test interpretation discussed with APC. Problem List/Past Medical History Ongoing Arthritis Asthma CAD (coronary artery disease) Chronic anemia Chronic GERD Compression fracture of T12 vertebra with routine healing Diastolic dysfunction Fall Fall at home APOORVA (generalized anxiety disorder) Hepatic cyst HTN Hyperlipidemia Mild pulmonary hypertension MRSA (methicillin resistant staph aureus) culture positive Seasonal allergies Seizure disorder Historical No qualifying data Procedure/Surgical History PCI - Percutaneous coronary intervention (11/24/2021), Eye surgery (2003), Back sx, begnign (more content not included)...[facility] Comment on above:Result Comment: Electronically Signed By: Luis E Wen PA-C\.br\Date and Time Signed: 04/21/2519:23 EST\.br\Electronically Co-Signed By: Hank Beard DO\.br\Date and Time Co-Signed: 04/25/24 07:28 ESTED Clinical Summaryon [id number] Clinical SummaryED Clinical Summary [address] [address] ED Clinical Summary Person Information Name: CARLY MARCELINO[place] Age: 83 Years : 1940 Sex: Female Language: Haitian PCP: HARDEEP MCKENZIE DO Marital Status: Phone: [phone] Visit Id: Visit Reason: Medical problem - minor; ZIPPER ON COPAT IS CAUGHT IN PT NECK Speciality: Acuity: 5 Enc Type: Emergency Med Service: Emergency Arrival: 04/21/2024 14:25:12 Discharge: 04/21/2024 15:23:22 LOS: 000 00:58 Checkin: 04/21/2024 14:25:12 Checkout: 04/21/2024 15:23:22 Dispo Type: Home (Routine DC) EVENTS: Event Name Event Status Request Date/Time Start Date/Time Complete Date/Time Arrive Complete 04/21/2024 14:25:12 04/21/2024 14:25:12 04/21/2024 14:25:12 Document Home Meds Request 04/21/2024 14:25:12 Triage Complete 04/21/2024 14:25:12 04/21/2024 14:43:07 04/21/2024 14:43:07 Bed Assign Complete 04/21/2024 14:38:08 04/21/2024 14:38:08 04/21/2024 14:38:08 Dr Exam Complete 04/21/2024 14:38:08 04/21/2024 14:40:55 04/21/2024 14:40:55 RN Exam Complete 04/21/2024 14:38:08 04/21/2024 15:22:54 04/21/2024 15:22:54 Registration Complete 04/21/2024 14:40:55 04/21/2024 14:53:25 04/21/2024 14:53:25 Dr Exam Complete 04/21/2024 14:41:09 04/21/2024 14:41:09 04/21/2024 14:41:09 Dr Exam Complete 04/21/2024 14:41:18 04/21/2024 14:41:18 04/21/2024 14:41:18 Reg Complete Request 04/21/2024 14:53:25 Reg Bed Request Complete 04/21/2024 14:53:25 04/21/2024 14:53:25 04/21/2024 14:53:25 Discharge Complete 04/21/2024 15:03:08 04/21/2024 15:23:36 04/21/2024 15:23:36 Transfer Complete 04/21/2024 15:23:36 04/21/2024 15:23:36 04/21/2024 15:23:36 ADDRESS: [facility] [address] [place] [phone] PHYS DOC NOTES: MEDICAL INFORMATION: Prescriptions Given: Medications to Continue with No Changes Other Medications acetaminophen (acetaminophen 325 mg Tab) 2 Tablets By Mouth every 6 hours as needed Pain. cetirizine (Zyrtec) 10 Milligram By Mouth every day as needed Allergy symptoms. citalopram (citalopram 20 mg Tab) 1 Tablets By Mouth every day. Refills: 0. cyclobenzaprine (cyclobenzaprine 10 mg Tab) 1 Tablets By Mouth 3 times a day as needed for spasm. Refills: 0. famotidine (famotidine 40 mg Tab) 1 Tablets By Mouth every day. Refills: 0. ferrous sulfate (ferrous sulfate 325 mg Tab) 1 Tablets By Mouth every day. Refills: 0. Fish Oil 1 Capsules By Mouth at bedtime. gabapentin (gabapentin 300 mg Cap) 1 Capsules By Mouth 3 times a day. lisinopril (lisinopril 10 mg Tab) 1 Tablets By Mouth every day. Refills: 0. lisinopril (lisinopril 30 mg Tab) 1 Tablets By Mouth every day. Refills: 0. loperamide (Imodium A-D EZ Chews 2 mg oral tablet, chewable) 1 Tablets Chewed 3 times a day as needed for loose stool. Refills: 0. lorazepam (LORazepam 0.5 mg Tab) 1 Tablets By Mouth every 8 hours as needed as needed for anxiety. Refills: 0. magnesium oxide (magnesium oxide 400 mg Tab) 1 Tablets By Mouth at bedtime. metoprolol (Metoprolol tartrate 25 mg Tab) 0.5 Tablets By Mouth 2 times a day. Refills: 0. montelukast (montelukast 10 mg Tab) 1 Tablets By Mouth every day. multivitamin with minerals (Multivitamins and Minerals oral tablet) ondansetron (Zofran ODT 4 mg Tab-Dis) 1 Tablets By Mouth every 8 hours. Refills: 0. pravastatin (pravastatin 40 mg Tab) 1 Tablets By Mouth every day. at bedtime. tramadol (traMADOL 50 mg Tab) 1 Tablets By Mouth every 4 hours as needed as needed for pain. Refills: 0. PATIENT EDUCATION INFORMATION: Instructions: Abrasion, Zcic-js-Etex Follow up: With: Address: When: HARDEEP ROGLES [address] [place], [place] [id number] [facility] (1) In 3 days 04/24/2024 Comments: Call Dr for diagnosis based follow up [facility]AG[facility]IS: [facility] Patient Summaryon [id number] Patient SummaryED Patient Summary [address] [address] Patient Discharge Instructions Person Information Name: CARLY MARCELINO Age: 83 Years Arrival Date: 04/21/2024 14:25:12 Discharge Diagnosis: Neck abrasion Primary Care Physician: HARDEEP MCKENZIE DO Provider Information Primary Provider: Hank Beard DO Advanced Ecotherapist:Luis E Wen PA-C The exam and treatment you received in the Emergency Department were for an urgent problem and are not intended as complete care. It is important that you follow up with a doctor, nurse practitioner,or physician???s workforce development assistant for ongoing care. If your symptoms become worse or you do not improve asexpected and you are unable to reach your usual health care provider, you should return to the Emergency Department. We are available 24 hours a day. CARLY MARCELINO has been given the following list of patient education materials, prescriptions and follow-up instructions: Follow-up Instructions: With: Address: When: HARDEEP MAGALY [facility] [address] [address] Business (1) In 3 days 04/24/2024 Comments: Call for diagnosis based follow up In the event that this physician does not participate in your insurance network, please consult with your insurance company to find a nearby participating provider. Patient Education Materials: Abrasion, Owde-bb-Zyoi A MESSAGE TO ALL PATIENTS REGARDING OPIOIDS PRESCRIPTION OPIOIDS: WHAT YOU NEED TO KNOW Prescription opioids can be used to help relieve zdbmqrgm-aa-yrutiw pain and are often prescribed following a [...] as well, even when taken as directed: ??? Tolerance???meaning you might need to take more of the medication for the same pain relief ??? Physical dependence???meaning you have symptoms of withdrawal when a medication is stopped ??? Increased sensitivity to pain ??? Constipation ??? Nausea, vomiting, and dry mouth ??? Sleepiness and dizziness ??? Confusion ??? Depression ??? Low levels of testosterone that can result in lower sex drive, energy, and strength ??? Itching and sweating RISKS ARE GREATER WITH: ??? History of drug misuse, substance use disorder, or overdose ??? Mental health conditions (such as depression or anxiety) ??? Sleep apnea ??? Older age (65 years and older) ??? Avoid alcohol while taking prescription opioids. Also, unless specifically advised by your health care provider, medications to avoid include: ??? Benzodiazepines (such as Xanax or Valium) ??? Muscle relaxants (such as Soma or Flexeril) ??? Hypnotics (such as Ambien or Lunesta) ??? Other prescription opioids KNOW YOUR OPTIONS Talk to your health care provider about ways to manage your pain that don???t involve prescription opioids. Some of these options may actually work better and have fewer risks and side effects. Options may include: ??? Pain relievers such as acetaminophen, ibuprofen, and naproxen ??? Some medication that are also used for depression or seizures ??? Physical therapy and exercise ??? Cognitive behavioral therapy, a psychological, goal-directed approach, in which patients learn how to modify physical, behavioral, and emotional triggers of pain and stress. IF YOU ARE PRESCRIBED OPIOIDS FOR PAIN: ??? Never take opioids in greater amounts or more often than prescribed. ??? Follow up with your primary health care provider. o Work together to create a plan on how to manage your pain. o Talk about ways to help manage your pain that don???t involve prescription opioids. o Talk about any and all concerns and side effects. ??? Help prevent misuse and abuse o Never sell or share prescription opioids. o Never use another person???s prescription opioids. ??? Store prescription opioids in a secure place and out of reach of others (this may include visitors, children, friends, and family). ??? Safely dispose of unused prescription opioids: Find your community drug take-back program or your pharmacy mail-back program, or flush them down the toilet, following guidance from the Food and Drug Administration (www.fda.gov/Drugs/ResourcesForYou). ??? Visit www.cdc.gov/drugoverdose to learn about the risks of opioids abuse and overdose. ??? If you believe you may be struggling with addiction, (more content not included)...NormalAvita Health System Bucyrus HospitalBMPon 07-20-8711Ipyvz gap [Moles/Vol]9 mmol/LNormal6-16[facility] HospitalComment on above: Performed By: #### [id number] #### [facility] [address], [place] [address]Xpjecsd [Mass/Vol]9.7 mg/dLNormal8.9-11.1[facility] Hospital Of BaltimoreComment on above:Performed By: #### [id number] #### [facility] [address], [place] [address]Pbsokjef [Moles/Vol]101 mmol/BAsqayq612-645CdudcwAvita Health System Bucyrus HospitalComment on above:Performed By: #### [id number] #### [facility] [address], [place] [address]XH0 [Moles/Vol]31 mmol/KEvinli25-53SstufiAvita Health System Bucyrus Hospital Comment on above:Performed By: #### [id number] #### [facility] [address], [place] [address]Jiozvcbjqp [Mass/Vol]0.8 mg/dLNormal0.5-1.3FWright-Patterson Medical CenterComment on above:Performed By: #### [id number] #### [facility] [address], [place] [address]Srnemzh [Mass/Vol]87 mg/tEFxtdlh93-965EbzprvAvita Health System Bucyrus HospitalComment on above:Performed By: #### [id number] #### [facility] [address], [place] [address]Vnrwcofmr [Moles/Vol]4.0 mmol/LNormal3.5-5.3FWright-Patterson Medical CenterComment on above:Performed By: #### [id number] #### [facility] [address], [place] [address]Lzafxl [Moles/Vol]137 mmol/JJwlglf812-748YnxxsmAvita Health System Bucyrus HospitalComment on above:Performed By: #### [id number] #### [facility] [address], [place] [address]Amqk nitrogen [Mass/Vol]15 mg/dLNormal5-21[facility] Bu[facility] HospitalComment on above:Performed By: #### [id number] #### [facility] [address], [place] [address]Wsrn nitrogen/Creatinine [Mass ratio]19 No AkaojToztkm21-74 [facility] Bucyrus HospitalComment on above:Performed By: #### [id number] #### [facility] [address], [place] [address]TYB w/ Auto Diffon 41-83-6027Kxsdtrrhe/100 WBC (Bld)0.4 %Normal 0.0-2.0[facility] Bucyrus HospitalComment on above:Performed By: #### [id number] #### [facility] [address] [place] [address]Tnpysdxdn/Leukocytes Auto (Bld) [Pure # fraction]0.0 E9/LNormal 0.0-0.2FWright-Patterson Medical CenterComment on above:Performed By: #### [id number] #### [facility] [address] [place] [address]Mstimkeyufz (Bld) [#/Vol]0.1 E9/LNormal0.0-0.5FWright-Patterson Medical CenterComment on above:Performed By: #### [id number] #### [facility] [address] [place] [address]Eykvvioaxck/100 WBC (Bld)1.3 %Normal0.0-8.0[facility] Bucy[facility] HospitalComment on above:Performed By: #### [id number] #### [facility] [address] [place] [address]Jfnqcgllreb distribution width (RBC) [Ratio]15.2 %High10.9-14.2 [facility] Bucy[facility] HospitalComment on above:Performed By: #### [id number] #### [facility] [address] [place] [address]Sytwiobfnu (Bld) [Volume fraction]37.9 %Avvrkw76.0-46.0[facility] Bucy[facility] HospitalComment on above:Performed By: #### [id number] #### [facility] [address] [place] [address]Tuphihbcwm (Bld) [Mass/Vol]12.7 g/qSAokzmn58.0-16.0[facility] Bucy[facility] HospitalComment on above:Performed By: #### [id number] #### [facility] [address] [place] [address]Oldhwjpmukt (Bld) [#/Vol]1.2 E9/LNormal1.0-4.0[facility] HospitalComment on above:Performed By: #### [id number] #### [facility] [address] [place] [address]Becojqzcjbd/100 WBC (Bld)20.4 %Hvmofq12.0-50.0[facility] HospitalComment on above:Performed By: #### [id number] #### [facility] [address] [place] [address]NRG (RBC) [Entitic mass]30.8 kaGqntup54.0-34.0[facility] HospitalComment on above:Performed By: #### [id number] #### [facility] [address] [place] [address]VOFB (RBC) [Mass/Vol]33.4 g/rOFtbncj26.4-36.0[facility] HospitalComment on above:Performed By: #### [id number] #### [facility] [address] [place] [address]NTO (RBC) [Entitic vol]92.2 bDJidhan14.0-100.0[facility] Bucy[facility] HospitalComment on above:Performed By: #### [id number] #### [facility] [address] [place] [address]Igdbmhnth (Bld) [#/Vol]0.5 E9/LNormal0.2-1.0[facility] Bu[facility] HospitalComment on above:Performed By: #### [id number] #### [facility] [address] [place] [address]Niqnctlixrc (Bld) [#/Vol]4.0 E9/LNormal2.0-7.5FWright-Patterson Medical CenterComment on above:Performed By: #### [id number] #### [facility] [address] [place] [address]Nxtsenopixg/100 WBC (Bld)69.5 %Xwklli95.0-75.0[facility] HospitalComment on above:Performed By: #### [id number] #### [facility] [address] [place] [address]Gldwttmo mean volume (Bld) [Entitic vol]7.3 fLNormal6.4-10.8 [facility] Bucy[facility] HospitalComment on above:Performed By: #### [id number] #### [facility] [address], [place] [address]Wiufumhpv (Bld) [#/Vol]215.0 E9/DMsihbz748.0-500.0[facility]cy[facility] HospitalComment on above:Performed By: #### [id number] #### [facility] [address] [place] [address]ABB (Bld) [#/Vol]4.1 E12/LLow4.3-5.9[facility] Comment on above:Performed By: #### [id number] #### [facility] [address] [place] [address]JTH corrected for nucl RBC Auto (Bld) [#/Vol]5.8 E9/LNormal 4.0-11.0[facility] Bucyrus HospitalComment on above:Performed By: #### [id number] #### [facility] [address], [place] [address]XJTGXZEJDSbxpjkf By: SYSTEM SYSTEM on 01-72-2859Iqlqfodi HS6.50 pg/mLLow10.10 - 27.10 pg/mLRemisol ChemComment on above:Interpretive Data: The 95% CI (Confidence Interval) PPV (Positive Predictive Value) for myocardial i nfarction in females is 38 pg/mL, in males 51 pg/mL. The results should be used in conjunction withclinical conditions of myocardial infarction. (Access High Sensitivity Troponin I Instructions For Use, Raegan Nloan, October 2017)Anion gap [Moles/Vol]9 mmol/LNormal6 - 16 mEq/LRemisol ChemCalcium [Mass/Vol]9.7 mg/dLNormal8.9 - 11.1 mg/dLRemisol ChemChloride [Moles/Vol]101 mmol/ONmwiut376 - 111 mmol/LRemisol ChemCO2 [Moles/Vol]31 mmol/DLyvybl94 - 31 mmol/LRemisol ChemCreatinine [Mass/Vol]0.8 mg/dLNormal0.5 - 1.3 mg/dLRemisol HbhbeJDM47 mL/min/1.73 d7Xcnxpp>=59mL/min/1.73 j0Xkvmadj ChemGlucose [Mass/Vol] 87 mg/qUWgybdu30 - 199 mg/dLRemisol ChemPotassium [Moles/Vol]4.0 mmol/LNormal3.5 - 5.3 mmol/LRemisol ChemSodium [Moles/Vol]137 mmol/EDlxykr556 - 145 mmol/L Remisol ChemTroponin HS5.90 pg/mLLow10.10 - 27.10 pg/mLRemisol ChemComment on above:Interpretive Data: The 95% CI (Confidence Interval) PPV (Positive Predictive Value) for myocardial infarction in females is 38 pg/mL, in males 51 pg/mL. The results should be used in conjunction withclinical conditions of myocardial infarction. (Access High Sensitivity Troponin I Instructions For Use, Raegan Nolan, October 2017)Urea nitrogen [Mass/Vol]15 mg/dLNormal5 - 21 mg/dLRemisol ChemUrea nitrogen/Creatinine [Mass ratio]19 mg/iiYyqzpc50 - 20Remisol ChemCT Head or Brain w/o Contraston [id number] Head or Brain w/o ContrastExam Date/Time: 04/11/2024 14:29 EST Reason for Exam: Delirium;Altered mental status Report IMPRESSION: NO ACUTE INTRACRANIAL PROCESS. EXAMINATION: CT of the brain without contrast HISTORY: Altered mental status COMPARISON: CT brain 10/16/2023 TECHNIQUE: Multiple axial images were obtained of the brain from the skull base through the vertex. Multiplanar reformats were obtained. FINDINGS: Prominence of the sulci and ventricles compatible with mild generalized parenchymal volume loss. Simmons-white matter differentiation is preserved. Areas of bilateral supratentorial white matter hypoattenuation are nonspecific but most likely due to chronic small vessel ischemic changes in a patient of this age. No acute hemorrhage or abnormal extra-axial fluid collection. Basal cisterns are patent. No mass effect or midline shift. The visualized paranasal sinuses and mastoid air cells are clear. Left-sided katty hole is noted. The calvarium is otherwise intact. All CT scans at this facility use dose modulation, iterative reconstruction, and/or weight based dosing when appropriate to reduce radiation dose to as low as reasonably achievable. Ordering Provider: Hank Beard FINAL REPORT Dictated: 04/11/2024 2:40 pm Riaz Clemente DO Signed (Electronic Signature): 04/11/2024 2:40 pm Signed by: Riaz Clemente DO Transcribed by: BRENDA Technologist: [facility] Clinical Summaryon [id number] Clinical SummaryED Clinical Summary [place] [id number] ED Clinical Summary Person Information Name: CARLY MARCELINO [facility] Age: 83 Years : 1940 Sex: Female Language: Haitian PCP: HARDEEP MCKENZIE DO Marital Status: Phone: [phone] Visit Id: Visit Reason: Hypertension; Tinnitus; Headache; POSS TINNITUS Speciality: Acuity: 2 Enc Type: Emergency Med Service: Emergency Arrival: 04/11/2024 13:50:44 Discharge: 04/11/2024 17:40:43 LOS: 000 03:50 Checkin: 04/11/2024 13:50:44 Checkout: 04/11/2024 17:40:43 Dispo Type: Home (Routine DC) EVENTS: Event Name Event Status Request Date/Time Start Date/Time Complete Date/Time Arrive Complete 04/11/2024 13:50:44 04/11/2024 13:50:44 04/11/2024 13:50:44 Document Home Meds Request 04/11/2024 13:50:44 Triage Complete 04/11/2024 13:50:44 04/11/2024 13:57:21 04/11/2024 13:57:21 Bed Assign Complete 04/11/2024 13:50:44 04/11/2024 13:50:44 04/11/2024 13:50:44 Dr Exam Complete 04/11/2024 13:50:44 04/11/2024 14:09:26 04/11/2024 14:09:26 RN Exam Complete 04/11/2024 13:50:44 04/11/2024 14:09:19 04/11/2024 14:09:19 EKG Complete 04/11/2024 13:55:44 04/11/2024 14:04:07 Registration Complete 04/11/2024 14:09:26 04/11/2024 14:44:46 04/11/2024 14:44:46 Pending Labs Complete 04/11/2024 14:14:33 04/11/2024 16:46:07 Lab Complete 04/11/2024 14:14:33 04/11/2024 15:25:30 Patient Care Complete 04/11/2024 14:14:33 04/11/2024 14:28:23 CT Complete 04/11/2024 14:14:33 04/11/2024 14:19:29 04/11/2024 14:29:50 X-Ray Complete 04/11/2024 14:14:33 04/11/2024 14:24:43 04/11/2024 14:37:00 Wet Read Complete 04/11/2024 14:37:00 04/11/2024 14:39:58 04/11/2024 14:39:58 Reg Complete Request 04/11/2024 14:44:46 Reg Bed Request Complete 04/11/2024 14:44:46 04/11/2024 14:44:46 04/11/2024 14:44:46 Pending Labs Complete 04/11/2024 14:58:26 04/11/2024 14:58:26 04/11/2024 15:25:30 Lab Complete 04/11/2024 14:58:26 04/11/2024 14:58:26 04/11/2024 15:25:30 Pending Labs Complete 04/11/2024 14:59:57 04/11/2024 14:59:57 04/11/2024 14:59:58 Meds Admin Complete 04/11/2024 15:46:31 04/11/2024 15:58:14 Discharge Complete 04/11/2024 16:35:38 04/11/2024 17:41:02 04/11/2024 17:41:02 Transfer Complete 04/11/2024 17:41:02 04/11/2024 17:41:02 04/11/2024 17:41:02 ADDRESS: [address] [place] [address] [place] [phone] PHYS DOC NOTES: MEDICAL INFORMATION: Prescriptions Given: Medications to Continue Taking That Have Changed Printed Prescriptions START: lisinopril (lisinopril 10 mg Tab) 1 Tablets By Mouth every day. Refills: 0. Other Medications START: lisinopril (lisinopril 30 mg Tab) 1 Tablets By Mouth every day. Refills: 0. Medications to Continue with No Changes Other Medications acetaminophen (acetaminophen 325 mg Tab) 2 Tablets By Mouth every 6 hours as needed Pain. cetirizine (Zyrtec) 10 Milligram By Mouth every day as needed Allergy symptoms. citalopram (citalopram 20 mg Tab) 1 Tablets By Mouth every day. Refills: 0. cyclobenzaprine (cyclobenzaprine 10 mg Tab) 1 Tablets By Mouth 3 times a day as needed for spasm. Refills: 0. famotidine (famotidine 40 mg Tab) 1 Tablets By Mouth every day. Refills: 0. ferrous sulfate (ferrous sulfate 325 mg Tab) 1 Tablets By Mouth every day. Refills: 0. Fish Oil 1 Capsules By Mouth at bedtime. gabapentin (gabapentin 300 mg Cap) 1 Capsules By Mouth 3 times a day. loperamide (Imodium A-D EZ Chews 2 mg oral tablet, chewable) 1 Tablets Chewed 3 times a day as needed for loose stool. Refills: 0. lorazepam (LORazepam 0.5 mg Tab) 1 Tablets By Mouth every 8 hours as needed as needed for anxiety. Refills: 0. magnesium oxide (magnesium oxide 400 mg Tab) 1 Tablets By Mouth at bedtime. metoprolol (Metoprolol tartrate 25 mg Tab) 0.5 Tablets By Mouth 2 times a day. Refills: 0. montelukast (montelukast 10 mg Tab) 1 Tablets By Mouth every day. multivitamin with minerals (Multivitamins and Minerals oral tablet) ondansetron (Zofran ODT 4 mg Tab-Dis) 1 Tablets By Mouth every 8 hours. Refills: 0. pravastatin (pravastatin 40 mg Tab) 1 Tablets By Mouth every day. at bedtime. tramadol (traMADOL 50 mg Tab) 1 Tablets By Mouth every 4 hours as needed as needed for pain. Refills: 0. PATIENT EDUCATION INFORMATION: Instructions: Follow up: With: Address: When: HARDEEP MCKENZIE [address], [address] [place] [id number] [employer] ([employer] In 3 days DIAGNOSIS: Hypertensive urgencyNormalFisher Onondaga Medical CenterED Note-Physicianon [id number] Note-PhysicianED Note-Physician Basic Information Time Seen: Hank Beard DO 04/11/2024 14:09 Chief Complaint pt to ER c/o HTN, headache, and tinnitus. Pt denies CP and SOB. Pt took 2 nitro at home with no relief. Pt reports taking her BP meds today. History of Present Illness 83 female presents to the emergency department with hypertension and tinnitus. Patient states that she wanted to come in today to get checked out because she believes her blood pressure was too high.She states that her blood pressure was approximately 200/100 she was having tinnitus and therefore came in. She had some associated headache with this as well no chest pain or shortness of breath no cough fevers no nausea vomiting or diarrhea. Patient states that she does take blood pressure medicines although she cannot recall what they are she does remember metoprolol. She also states that she took 2 nitro thinking that the symptoms were being caused by her blood pressure elevation so she wanted to bring it down with nitro. Therefore she came in to be evaluated she denies any changes to speech or vision no numbness or weakness to the upper or lower extremities. Patient is also concerned because she does have history of a brain bleed previously and states that she had some coiling procedures done as well this was back in July. No other aggravating or relieving factors no other associated symptoms no other prior treatments or complaints. Family: Reviewed and noncontributory Social: lives at home Review of systems negative unless otherwise specified in the HPI. Physical Exam Vitals & Measurements T: 36.8 ???C(Oral) HR: 62(Monitored) RR: 14 BP: 190/90 SpO2: 94% HT: 170 cm WT: 75.1 kg BMI: 25.99 General: The patient appears well and in no apparent distress. Patient is resting comfortably on cart. Skin: Warm, dry, no pallor noted. Head: Normocephalic, atraumatic Neck: No JVD Eye: PERRLA, EOMI ENT: Moist mucus membranes Cardiovascular: Regular rate normal peripheral perfusion Respiratory: No respiratory distress no accessory muscle use no obvious audible wheezing Chest Wall: no deformity Musculoskeletal: normal ROM, no deformity, no swelling GI: Soft no obvious distention. No rebound or rigidity. No guarding. No tenderness. Neurological: A&O moves all extremities equal strength and symmetry Psychiatric: Cooperative and appropriate Medical Decision Making workup in the ER has been reviewed and noted. CT of the chest read by the radiologist as no acute pathology. The remainder of the workup here is negative. Patient does have elevated blood pressure readings is treated 1 dose of hydralazine here also given 10 mg of lisinopril. We had a lengthy conversation about management of her blood pressure as I do believe she is probably having some symptomatic hypertension. Patient states that she cannot take multiple antihypertensives including hydrochlorothiazide and Norvasc. Therefore we will increase her lisinopril as she is currently taking 30 mg I will prescribe her 10 mg so she will receive a total of 40 mg daily lisinopril she is given her first dose here today and she is to resume normal dosing up to 40 mg tomorrow. She also is taking 25 mg of metoprolol she asked if she could take half pill extra I told her that would be okay right now butthat she would need to keep an eye on her symptoms specifically her heart rate as her heart rate was in the 60s here and I would be concerned about symptomatic bradycardia. She should follow-up with Dr. Mckenzie for management of her blood pressure in the outpatient setting I did advise her to keep a log. Assessment/Plan Hypertensive urgency (I16.0: Hypertensive urgency) Orders: hydrALAZINE, 10 mg = 0.5 mL, Injection, IV Push, Once, Stop date 04/11/24 15:46:00 EST, STAT, Startdate 04/11/24 15:46:00 EST, 04/11/24 15:46:00 EST lisinopril, 10 mg = 1 tab(s), Tab, Oral, Once, Stop date 04/11/24 15:46:00 EST, STAT, Start date 04/11/24 15:46:00 EST, 04/11/24 15:46:00 EST Basic Metabolic Panel CBC w/ Auto Diff CT Head or Brain w/o Contrast eGFR Extra Blue Tube Extra SST Tube Saline Lock Insert Troponin 0 Hr. Troponin 1 Hr. XR Chest Single View Medications Administered Given hydrALAZINE 20 mg/mL Inj, 10 mg, IV Push lisinopril 10 mg Tab, 10 mg, Oral Disposition Plan Discharge Prescription List Prescriptions No active prescription medications Follow-up With When Contact Information HARDEEP ZARCOES In 3 days [address] [facility], [address] [address]- Business (1) Additional Instructions: Problem List/Past Medical History Ongoing Arthritis Asthma CAD (coronary artery disease) Chronic anemia Chronic GERD Compression fracture of T12 vertebra with routine healing Diastolic dysfunction Fall Fall at home APOORVA (generalized anxiety disorder) Hepatic cyst HTN Hyperlipidemia Mild pulmonary hypertension MRSA (methicillin resistant staph aureus) culture positive Seasonal allergies Seizure di (more content not included)...[facility] Comment on above:Result Comment: Electronically Signed By: Hank Beard DO\.br\Date and Time Signed: 04/11/24 16:36ESTED Patient Education Noteon 20-80-7318MD Patient Education NoteED Patient Education NoteNoTriHealth Patient Summaryon [id number] Patient SummaryED Patient Summary [address] [address] Patient Discharge Instructions Person Information Name: CARLY MARCELINO Age: 83 Years Arrival Date: 04/11/2024 13:50:44 Discharge Diagnosis: Hypertensive urgency Primary Care Physician: HARDEEP MCKENZIE DO Provider Information Primary Provider: Hank Beard DO Advanced Ecotherapist:None The exam and treatment you received in the Emergency Department were for an urgent problem and are not intended as complete care. It is important that you follow up with a doctor, nurse practitioner,or physician???s workforce development assistant for ongoing care. If your symptoms become worse or you do not improve asexpected and you are unable to reach your usual health care provider, you should return to the Emergency Department. We are available 24 hours a day. CARLY MARCELINO has been given the following list of patient education materials, prescriptions and follow-up instructions: Follow-up Instructions: With: Address: When: HARDEEP MAGALY [address] [facility], [facility] [address] [place] [address] Business (1) In 3 days In the event that this physician does not participate in your insurance network, please consult with your insurance company to find a nearby participating provider. Patient Education Materials: A MESSAGE TO ALL PATIENTS REGARDING OPIOIDS PRESCRIPTION OPIOIDS: WHAT YOU NEED TO KNOW Prescription opioids can be used to help relieve uesqnhkv-qv-tucuue pain and are often prescribed following a [...] as well, even when taken as directed: ??? Tolerance???meaning you might need to take more of the medication for the same pain relief ??? Physical dependence???meaning you have symptoms of withdrawal when a medication is stopped ??? Increased sensitivity to pain ??? Constipation ??? Nausea, vomiting, and dry mouth ??? Sleepiness and dizziness ??? Confusion ??? Depression ??? Low levels of testosterone that can result in lower sex drive, energy, and strength ??? Itching and sweating RISKS ARE GREATER WITH: ??? History of drug misuse, substance use disorder, or overdose ??? Mental health conditions (such as depression or anxiety) ??? Sleep apnea ??? Older age (65 years and older) ??? Avoid alcohol while taking prescription opioids. Also, unless specifically advised by your health care provider, medications to avoid include: ??? Benzodiazepines (such as Xanax or Valium) ??? Muscle relaxants (such as Soma or Flexeril) ??? Hypnotics (such as Ambien or Lunesta) ??? Other prescription opioids KNOW YOUR OPTIONS Talk to your health care provider about ways to manage your pain that don???t involve prescription opioids. Some of these options may actually work better and have fewer risks and side effects. Options may include: ??? Pain relievers such as acetaminophen, ibuprofen, and naproxen ??? Some medication that are also used for depression or seizures ??? Physical therapy and exercise ??? Cognitive behavioral therapy, a psychological, goal-directed approach, in which patients learn how to modify physical, behavioral, and emotional triggers of pain and stress. IF YOU ARE PRESCRIBED OPIOIDS FOR PAIN: ??? Never take opioids in greater amounts or more often than prescribed. ??? Follow up with your primary health care provider. o Work together to create a plan on how to manage your pain. o Talk about ways to help manage your pain that don???t involve prescription opioids. o Talk about any and all concerns and side effects. ??? Help prevent misuse and abuse o Never sell or share prescription opioids. o Never use another person???s prescription opioids. ??? Store prescription opioids in a secure place and out of reach of others (this may include visitors, children, friends, and family). ??? Safely dispose of unused prescription opioids: Find your community drug take-back program or your pharmacy mail-back program, or flush them down the toilet, following guidance from the Food and Drug Administration (www.fda.gov/Drugs/ResourcesForYou). ??? Visit www.cdc.gov/drugoverdose to learn about the risks of opioids abuse and overdose. ??? If you believe you may be struggling with addiction, tell your health neonatal intensive care nurse and askfor guidance or call [facility]???S National Helpline at 1- (more content not included)...[facility] Documentation on [id number] DocumentationReport Please click on link to see reportNormalAvita Health System Bucyrus HospitalComment on above:Result Comment: Missing Attachment - attachment exceeds size limitation Event_[id number].pdf Can be viewed in source systemExtra Blueon 67-78-0027Fybo Collected PlasmaYesInvalid Interpretation [facility] HospitalComment on above:Performed By: #### [id number] #### [facility] [address] [place] [address] [id number] By: SYSTEM SYSTEM on 20-11-2337Auddevolx/100 WBC (Bld)0.4 %Normal0.0 - 2.0 %Remisol HemeBasophils/Leukocytes Auto (Bld) [Pure # fraction]0.0 E9/LNormal0.0 - 0.2 E9/LRemisol HemeEosinophils (Bld) [#/Vol]0.1 E9/LNormal0.0 - 0.5 E9/LRemisol HemeEosinophils/100 WBC (Bld)1.3 %Normal0.0 - 8.0 %Remisol HemeErythrocyte distribution width (RBC) [Ratio]15.2 %High10.9 - 14.2 %Remisol HemeHematocrit (Bld) [Volume fraction]37.9 %Aoblwi98.0 - 46.0 % Remisol HemeHemoglobin (Bld) [Mass/Vol]12.7 g/bFSaadme51.0 - 16.0 gm/dLRemisol HemeLymphocytes (Bld) [#/Vol]1.2 E9/LNormal1.0 - 4.0 E9/LRemisol Heme Lymphocytes/100 WBC (Bld)20.4 %Ddfziv35.0 - 50.0 %Remisol HemeMCH (RBC) [Entitic mass]30.8 fnEaligx54.0 - 34.0 pgRemisol HemeMCHC (RBC) [Mass/Vol]33.4 g/dL Prbhwf45.4 - 36.0 gm/dLRemisol HemeMCV (RBC) [Entitic vol]92.2 iDHuukiw38.0 - 100.0 fLRemisol HemeMonocytes (Bld) [#/Vol]0.5 E9/LNormal0.2 - 1.0 E9/LRemisol HemeMonocytes/100 WBC (Bld)8.4 %Normal4.0 - 14.0 %Remisol HemeNeutrophils (Bld) [#/Vol]4.0 E9/LNormal2.0 - 7.5 E9/LRemisol HemeNeutrophils/100 WBC (Bld)69.5 % Rnuroi61.0 - 75.0 %Remisol HemePlatelet mean volume (Bld) [Entitic vol]7.3 fL Normal6.4 - 10.8 fLRemisol HemePlatelets (Bld) [#/Vol]215.0 E9/ZLgzmkz937.0 - 500.0 E9/LRemisol HemeRBC (Bld) [#/Vol]4.1 E12/LLow4.3 - 5.9 E12/LRemisol Heme WBC corrected for nucl RBC Auto (Bld) [#/Vol]5.8 E9/LNormal4.0 - 11.0 E9/L Remisol HemePre-Arrival Noteon 99-12-7036Jdg-Arrival NotePre-Arrival Note Pre-Arrival Summary Name: , jimmy Current Date: 04/11/2024 13:51:05 EST Gender: Female Date of : Age: 83 Pre-Arrival Type: EMS ETA: 04/11/2024 14:10:00 EST Primary Care Physician: Presenting Problem: tinnitus Pre-Arrival User: Herbert Brock RN Referring Source: Location: CT Completion Date/Time: 04/11/2024 13:41:00 [facility] Emergency Department Pre-Hospital Report Form Vital Signs: Pre-Hospital Report:ntg x 1 at home Treatment in Route: Response to Treatment: Misc. Issues:NormalAvita Health System Bucyrus HospitalTroponin 0 Hr.on 04-11-2024 Troponin HS5.90 pg/mLLow10.10-27.10[facility] HospitalComment on above: Result Comment: The 95% CI (Confidence Interval) PPV (Positive Predictive Value) for myocardial infarction in females is 38 pg/mL, in males 51 pg/mL. The results should be used in conjunction with clinical conditions of myocardial infarction. (Access High Sensitivity Troponin I Instructions For Use, Raegan [place] Anthony, October 2017)Performed By: #### [id number] #### [facility] [address], [place] [address]Aawiaskg 1 Hr.on 15-71-2052Eceslcgj HS6.50 pg/mLLow10.10-27.10 [facility] HospitalComment on above:Result Comment: The 95% CI (Confidence Interval) PPV (Positive Predictive Value) for myocardial infarction in females is 38 pg/mL, in males 51 pg/mL. The results should be used in conjunction with clinical conditions of myocardial infarction. (Access High Sensitivity Troponin I Instructions For Use, Raegan [facility], October 2017)Performed By: #### [id number] #### [facility] [address], [place] [address]EA Chest Single Viewon 23-85-4448QO Chest Single ViewExam Date/Time: 04/11/2024 14:37 EST Reason for Exam: Shortness of breath (SOB) Report IMPRESSION: NO RADIOGRAPHIC EVIDENCE OF ACUTE INTRATHORACIC PROCESS. EXAM: XR Chest Single View History: Shortness of breath Technique: Portable AP view of the chest. Comparison: Portable chest radiograph 10/03/2023 Findings: Atherosclerotic calcification of the thoracic aorta. The cardiomediastinal silhouette is within normal limits. No pneumothorax, pleural effusion, or consolidation. Postsurgical changes of bilateral shoulder arthroplasty. No acute osseous abnormality. Ordering Provider: Hank Beard FINAL REPORT Dictated: 04/11/2024 2:45 pm Riaz Clemente DO Signed (Electronic Signature): 04/11/2024 2:45 pm Signed by: Riaz Clemente DO Transcribed by: BRENDA Technologist: OracioAvita Health System Bucyrus HospitaleGFRon 74-50-3953yTMX40 mL/min/1.73 w2Yeggtr>=59Av[facility] HospitalComment on above:Performed By: #### [id number] #### [facility] [address], [place] [address]YO screening mammo BI w/CADon 20-54-0642EO screening mammo BI w/[facility] Main [address] [address] Mammography Report Signed Patient: Carly Marcelino MR#: [id number] : 1940 Acct:[id number] Age/Sex: 83 / F ADM Date: 03/13/24 Loc: [place] Room: Type: [facility] Attending Dr: Hardeep Mckenzie DO Copies to: Hardeep Mckenzie DO Ordering Provider: Hardeep Mckenzie DO Date of Service: 03/13/24 MM/MM screening mammo BI w/CAD: Z12.39 - Encounter for other screening for malignant neop... BILATERAL Screening Full Field digital mammogram with 3-D imaging. Full field digital CC and MLO imaging performed. CAD utilized. COMPARISON: 02/07/2023 HISTORY: Annual screening BREAST COMPOSITION: Scattered fibroglandular densities of the breast parenchyma identified BREAST CALCIFICATIONS: Benign calcifications present. VASCULAR CALCIFICATIONS: None ARCHITECTURAL DISTORTION: None BREAST NODULE: None AXILLARY LYMPH NODES: Normal POSTSURGICAL CHANGES: Left breast postbiopsy changes/scarring. MM/MM screening mammo BI w/CAD IMPRESSION: No mammographic evidence of malignancy. Routine follow-up recommended in one year. RESULT CODE: 2 Benign Findings(s) DENSITY CODE: 2 (approximately 25-50% glandular) FOLLOW UP: 1YR THE FALSE-NEGATIVE RATE OF MAMMOGRAPHY IS APPROXIMATELY 10%. IMAGING OF A PALPABLE ABNORMALITY MUST BE BASED ON CLINICAL GROUNDS. PATIENT WAS ENTERED INTO A REMINDER SYSTEM WITH A TARGET DUE DATE FOR THE NEXT MAMMOGRAM. Impression dictated by: Royce Jackson M.D.03/13/2024 1:51 PM Dictation Location: [facility] Transcribed By: [facility] 03/13/24 1351 Dictated By: Royce Jackson DO 03/13/24 1341 Signed By: 03/13/24 [facility] Physician GroupMammography reportOrdered By: Royce Jackson on 73-63-3124Yjudainftl imaging [facility] Main [place] [address] [place] [address] Mammography Report Signed Patient: Carly Marcelino MR#: [id number] : 1940 Acct:[id number] Age/Sex: 83 / F ADM Date: 5 Loc: DC Room: Type: [facility] Attending Dr: Hardeep Mckenzie DO Copies to: Hardeep Mckenzie DO~ Ordering Provider: Hardeep Mckenzie DO Date of Service: 03/13/24 MM/MM screening mammo BI w/CAD: Z12.39 - Encounter for other screening for malignant neop... BILATERAL Screening Full Field digital mammogram with 3-D imaging. Full field digital CC and MLO imaging performed. CAD utilized. COMPARISON: 02/07/2023 HISTORY: Annual screening BREAST COMPOSITION: Scattered fibroglandular densities of the breast parenchyma identified BREAST CALCIFICATIONS: Benign calcifications present. VASCULAR CALCIFICATIONS: None ARCHITECTURAL DISTORTION: None BREAST NODULE: None AXILLARY LYMPH NODES: Normal POSTSURGICAL CHANGES: Left breast postbiopsy changes/scarring. MM/MM screening mammo BI w/CAD IMPRESSION: No mammographic evidence of malignancy. Routine follow-up recommended in one year. RESULT CODE: 2 Benign Findings(s) DENSITY CODE: 2 (approximately 25-50% glandular) FOLLOW UP: 1YR THE FALSE-NEGATIVE RATE OF MAMMOGRAPHY IS APPROXIMATELY 10%. IMAGING OF A PALPABLE ABNORMALITY MUST BE BASED ON CLINICAL GROUNDS. PATIENT WAS ENTERED INTO A REMINDER SYSTEM WITH A TARGET DUE DATE FOR THE NEXT MAMMOGRAM. Impression dictated by: Royce Jackson M.D.03/13/2024 1:51 PM Dictation Location: [facility] Transcribed By: [facility] 03/13/24 1351 Dictated By: Royce Jackson DO 03/13/24 1341 Signed By: 03/13/24 1351 [facility] w/ Auto Diffon 96-19-5680Sutkgfesx/100 WBC (Bld)0.2 %Normal0.0-2.0[facility] BaltimoreComment on above:Performed By: #### [id number] #### [facility] [address], [place] [address]Wbqzvoqea/Leukocytes Auto (Bld) [Pure # fraction]0.0 E9/LNormal 0.0-0.2[facility] BaltimoreComment on above:Performed By: #### [id number] #### [facility] [address], [place] [address]Hrxijgufuel (Bld) [#/Vol]0.0 E9/LNormal0.0-0.5[facility] BaltimoreComment on above:Performed By: #### [id number] #### [facility] [address], [place] [address]Rsnbaegainl/100 WBC (Bld)0.4 %Normal0.0-8.0[facility] HospitalComment on above:Performed By: #### [id number] #### [facility] [address] [place] [address]Orcqymiaybq distribution width (RBC) [Ratio]17.4 %High10.9-14.2 [facility] HospitalComment on above:Performed By: #### [id number] #### [facility] [address] [place] [address]Taoqrkqlbe (Bld) [Volume fraction]38.1 %Wsrdbx21.0-46.0[facility] HospitalComment on above:Performed By: #### [id number] #### [facility] [address] [place] [address]Alueyyvkta (Bld) [Mass/Vol]12.9 g/vWSiyobc96.0-16.0[facility] HospitalComment on above:Performed By: #### [id number] #### [facility] [address] [place] [address]Urhunmzwxaz (Bld) [#/Vol]0.5 E9/LLow1.0-4.0[facility] HospitalComment on above:Performed By: #### [id number] #### [facility] [address] [place] [address]Umeleguzasj/100 WBC (Bld)8.6 %Low14.0-50.0[facility] HospitalComment on above:Performed By: #### [id number] #### [facility] [address] [place] [address]EBD (RBC) [Entitic mass]30.5 nrIeaqqm37.0-34.0[facility] HospitalComment on above:Performed By: #### [id number] #### [facility] [address] [place] [address]ZYLB (RBC) [Mass/Vol]33.8 g/aIEgzquy63.4-36.0[facility] HospitalComment on above:Performed By: #### [id number] #### [facility] [address] [place] [address]ZGT (RBC) [Entitic vol]90.0 tWBoraon97.0-100.0[facility] HospitalComment on above:Performed By: #### [id number] #### [facility] [address] [place] [address]Vrbzmvqlq (Bld) [#/Vol]0.5 E9/LNormal0.2-1.0[facility] HospitalComment on above:Performed By: #### [id number] #### [facility] [address] [place] [address]Xmdgkczizzl (Bld) [#/Vol]4.3 E9/LNormal2.0-7.5FWright-Patterson Medical CenterComment on above:Performed By: #### [id number] #### [facility] [address] [place] [address]Mypxwucmztz/100 WBC (Bld)82.1 %High36.0-75.0[facility] HospitalComment on above:Performed By: #### [id number] #### [facility] [address] [place] [address]Euxlyqsr mean volume (Bld) [Entitic vol]7.2 fLNormal6.4-10.8 [facility] HospitalComment on above:Performed By: #### [id number] #### [facility] [address] [place] [address]Zoudoexxs (Bld) [#/Vol]190.0 E9/GTjummz688.0-500.0[facility] HospitalComment on above:Performed By: #### [id number] #### [facility] [address] [place] [address]LBW (Bld) [#/Vol]4.2 E12/LLow4.3-5.9[facility] Comment on above:Performed By: #### [id number] #### [facility] [address], [place] [address]BDD corrected for nucl RBC Auto (Bld) [#/Vol]5.3 E9/LNormal 4.0-11.0[facility] HospitalComment on above:Performed By: #### [id number] #### [facility] [address], [place] [address]WAIQFOCRATanvcmm By: SYSTEM SYSTEM on 72-09-5558Tncmbji [Mass/Vol]3.9 g/dLNormal3.3 - 5.0 gm/dLRemisol ChemAlbumin/Globulin [Mass ratio] 1.3 {ratio}Normal1.1 - 2.2Remisol ChemALP [Catalytic activity/Vol]61 [iU]/d Iziebr13 - 98 Int._Unit/LRemisol ChemALT No additional P-5'-P [Catalytic activity/Vol]8 [iU]/dNormal6 - 46 Int._Unit/LRemisol ChemAnion gap [Moles/Vol]12 mmol/LNormal6 - 16 mEq/LRemisol ChemAST [Catalytic activity/Vol]16 [iU]/dNormal 5 - 43 Int._Unit/LRemisol ChemBilirubin [Mass/Vol]0.6 mg/dLNormal0.0 - 1.1 mg/dL Remisol ChemCalcium [Mass/Vol]8.9 mg/dLNormal8.9 - 11.1 mg/dLRemisol Chem Chloride [Moles/Vol]103 mmol/KJpdgxc358 - 111 mmol/LRemisol ChemCO2 [Moles/Vol] 27 mmol/IOmwvkb45 - 31 mmol/LRemisol ChemCreatinine [Mass/Vol]0.8 mg/dLNormal0.5 - 1.3 mg/dLRemisol IrevpVHK74 mL/min/1.73 i9Dhaiex>=59mL/min/1.73 g1Onogyae ChemGlobulin (S) [Mass/Vol]2.9 g/dLNormal1.4 - 4.0 gm/dLRemisol ChemGlucose [Mass/Vol]96 mg/lLIksvgk91 - 199 mg/dLRemisol ChemPotassium [Moles/Vol]3.9 mmol/LNormal3.5 - 5.3 mmol/LRemisol ChemProtein [Mass/Vol]6.8 g/dLNormal6.0 - 7.8 gm/dLRemisol ChemSodium [Moles/Vol]138 mmol/RRvprvo941 - 145 mmol/LRemisol ChemUrea nitrogen [Mass/Vol]17 mg/dLNormal5 - 21 mg/dLRemisol ChemUrea nitrogen/Creatinine [Mass ratio]21 mg/dnIjeh72 - 20Remisol ChemCMPon 03-09-2024 Albumin [Mass/Vol]3.9 g/dLNormal3.3-5.0[facility] HospitalComment on above:Performed By: #### [id number] #### [facility] [address] [place] [address]Nbjpiwu/Globulin (S) [Mass conc ratio]1.9Kqsykt6.1-2.2FWright-Patterson Medical CenterComment on above:Performed By: #### [id number] #### [facility] [address], [place] [address]QWM [Catalytic activity/Vol]61 Int._Unit/JGevyzc05-03MudzjwAvita Health System Bucyrus HospitalComment on above:Performed By: #### [id number] #### [facility] [address] [place] [address]WAO No additional P-5'-P [Catalytic activity/Vol]8 Int._Unit/L Normal6-46[facility] HospitalComment on above:Performed By: #### [id number] #### [facility] [address], [place] [address]Hwtkx gap [Moles/Vol]12 mmol/LNormal6-16[facility] HospitalComment on above:Performed By: #### [id number] #### [facility] [address], [place] [address]MBU [Catalytic activity/Vol]16 Int._Unit/LNormal5-43[facility] HospitalComment on above:Performed By: #### [id number] #### [facility] [address], [place] [address]Eskbtqglv [Mass/Vol]0.6 mg/dLNormal0.0-1.1FWright-Patterson Medical CenterComment on above:Performed By: #### [id number] #### [facility] [address], [place] [address]Hpcalid [Mass/Vol]8.9 mg/dLNormal8.9-11.1FWright-Patterson Medical CenterComment on above:Performed By: #### [id number] #### [facility] [address], [place] [address]Mndhjxjs [Moles/Vol]103 mmol/CSmtvyp342-241FgwifrAvita Health System Bucyrus HospitalComment on above:Performed By: #### [id number] #### [facility] [address], [place] [address]EJ3 [Moles/Vol]27 mmol/DEwmyhh78-75VboqnbAvita Health System Bu[facility]rus Hospital Comment on above:Performed By: #### [id number] #### [facility] [address], [place] [address]Htffhcssyh [Mass/Vol]0.8 mg/dLNormal0.5-1.3FWright-Patterson Medical CenterComment on above:Performed By: #### [id number] #### [facility] [address], [place] [address]Ahpffgrp (S) [Mass/Vol]2.9 g/dLNormal1.4-4.0[facility] HospitalComment on above:Performed By: #### [id number] #### [facility] [address], [place] [address]Ijdyzak [Mass/Vol]96 mg/gPOvzato01-926EapomiAvita Health System Bucyrus HospitalComment on above:Performed By: #### [id number] #### [facility] [address], [place] [address]Yrdkmnuaz [Moles/Vol]3.9 mmol/LNormal3.5-5.3FWright-Patterson Medical CenterComment on above:Performed By: #### [id number] #### [facility] [address] [place] [address]Etafhjh [Mass/Vol]6.8 g/dLNormal6.0-7.8[facility] HospitalComment on above:Performed By: #### [id number] #### [facility] [address] [place] [address]Oinicp [Moles/Vol]138 mmol/OOnjwnj622-630WijysvAvita Health System Bucyrus HospitalComment on above:Performed By: #### [id number] #### [facility] [address] [place] [address]Fzdd nitrogen [Mass/Vol]17 mg/dLNormal5-21[facility] HospitalComment on above:Performed By: #### [id number] #### [facility] [address] [place] [address]Rgyz nitrogen/Creatinine [Mass ratio]21 No HjuqoAbbl47-96PqupzsAvita Health System Bucyrus HospitalComment on above:Performed By: #### [id number] #### [facility] [address] [place] [address]ZW Clinical Summaryon [id number] Clinical SummaryED Clinical Summary [address] [address] ED Clinical Summary Person Information Name: CARLY MARCELINO [facility] Age: 83 Years : 1940 Sex: Female Language: Haitian PCP: HARDEEP MCKENZIE DO Marital Status: Phone: [phone] Visit Id: Visit Reason: Diarrhea; Nausea; Flank pain; FLANK PAIN Speciality: Acuity: 3 Enc Type: Emergency Med Service: Emergency Arrival: 03/09/2024 19:00:29 Discharge: 03/09/2024 23:51:29 LOS: 000 04:51 Checkin: 03/09/2024 19:00:29 Checkout: 03/09/2024 23:51:29 Dispo Type: Home (Routine DC) EVENTS: Event Name Event Status Request Date/Time Start Date/Time Complete Date/Time Arrive Complete 03/09/2024 19:00:29 03/09/2024 19:00:29 03/09/2024 19:00:29 Document Home Meds Request 03/09/2024 19:00:29 Triage Complete 03/09/2024 19:00:29 03/09/2024 19:05:56 03/09/2024 19:05:56 Bed Assign Complete 03/09/2024 19:00:29 03/09/2024 19:00:29 03/09/2024 19:00:29 Dr Exam Complete 03/09/2024 19:00:29 03/09/2024 19:31:11 03/09/2024 19:31:11 RN Exam Request 03/09/2024 19:00:29 Registration Complete 03/09/2024 19:22:34 03/09/2024 19:22:34 03/09/2024 19:22:34 Reg Complete Request 03/09/2024 19:22:34 Reg Bed Request Complete 03/09/2024 19:22:35 03/09/2024 19:22:35 03/09/2024 19:22:35 Registration Request 03/09/2024 19:31:11 Meds Admin Request 03/09/2024 19:42:33 Pending Labs Request 03/09/2024 19:42:33 Lab Complete 03/09/2024 19:42:33 03/09/2024 20:39:41 Pending Labs Complete 03/09/2024 20:12:03 03/09/2024 20:12:03 03/09/2024 20:39:41 Lab Complete 03/09/2024 20:12:03 03/09/2024 20:12:03 03/09/2024 20:39:41 Pending Labs Complete 03/09/2024 20:12:46 03/09/2024 20:12:46 03/09/2024 20:12:47 Meds Admin Complete 03/09/2024 20:32:18 03/09/2024 20:36:39 Pending Labs Request 03/09/2024 22:03:11 Meds Admin Complete 03/09/2024 22:47:54 03/09/2024 23:02:58 Meds Admin Complete 03/09/2024 23:18:16 03/09/2024 23:35:03 Meds Admin Request 03/09/2024 23:19:03 Discharge Complete 03/09/2024 23:23:21 03/09/2024 23:51:41 03/09/2024 23:51:41 Transfer Complete 03/09/2024 23:51:41 03/09/2024 23:51:41 03/09/2024 23:51:41 ADDRESS: [facility] [address] [place] [phone] PHYS DOC NOTES: MEDICAL INFORMATION: Prescriptions Given: New Medications Printed Prescriptions loperamide (Imodium A-D EZ Chews 2 mg oral tablet, chewable) 1 Tablets Chewed 3 times a day as needed for loose stool. Refills: 0. ondansetron (Zofran ODT 4 mg Tab-Dis) 1 Tablets By Mouth every 8 hours. Refills: 0. Medications to Continue with No Changes Other Medications acetaminophen (acetaminophen 325 mg Tab) 2 Tablets By Mouth every 6 hours as needed Pain. cetirizine (Zyrtec) 10 Milligram By Mouth every day as needed Allergy symptoms. citalopram (citalopram 20 mg Tab) 1 Tablets By Mouth every day. Refills: 0. cyclobenzaprine (cyclobenzaprine 10 mg Tab) 1 Tablets By Mouth 3 times a day as needed for spasm. Refills: 0. famotidine (famotidine 40 mg Tab) 1 Tablets By Mouth every day. Refills: 0. ferrous sulfate (ferrous sulfate 325 mg Tab) 1 Tablets By Mouth every day. Refills: 0. Fish Oil 1 Capsules By Mouth at bedtime. gabapentin (gabapentin 300 mg Cap) 1 Capsules By Mouth 3 times a day. lisinopril (lisinopril 30 mg Tab) 1 Tablets By Mouth every day. Refills: 0. lorazepam (LORazepam 0.5 mg Tab) 1 Tablets By Mouth every 8 hours as needed as needed for anxiety. Refills: 0. magnesium oxide (magnesium oxide 400 mg Tab) 1 Tablets By Mouth at bedtime. metoprolol (Metoprolol tartrate 25 mg Tab) 0.5 Tablets By Mouth 2 times a day. Refills: 0. montelukast (montelukast 10 mg Tab) 1 Tablets By Mouth every day. multivitamin with minerals (Multivitamins and Minerals oral tablet) pravastatin (pravastatin 40 mg Tab) 1 Tablets By Mouth every day. at bedtime. tramadol (traMADOL 50 mg Tab) 1 Tablets By Mouth every 4 hours as needed as needed for pain. Refills: 0. PATIENT EDUCATION INFORMATION: Instructions: Food Choices to Help Relieve Diarrhea, Adult; Diarrhea, Adult, Ygcy-qb-Kcen Follow up: With: Address: When: HARDEEP MAGALY [address] [place] [address] [facility] [address] [place] [address] blueKiwi (1) Comments: Call the office tomorrow DIAGNOSIS: 1:Diarrhea; 2:Nausea in adultNormalFisher Onondaga Medical CenterED Note-Physician on [id number] Note-PhysicianED Note-Physician Basic Information Time Seen: James Nguyen MD 03/09/2024 19:31 Chief Complaint pt presents with c/o L sided flank pain that started yesterday morning. pt also c/o diarrhea. pt denies urinary symptoms History of Present Illness 83-year-old female who lives at home with her daughter presents with a chief complaint of diarrhea.Patient believes she may have eaten something at her brother's yesterday that upset her system. Shestates she has had 3 loose watery stools today. She does not complain of significant abdominal painwith this. She does state that the left flank pain that she has had since she broke her back has been somewhat more severe today. She does describe some discomfort with urination but attributes that to the break. Patient denies any previous abdominal surgery. She does have a history of coronary disease and does have several stents. Presenting symptoms for coronary disease with chest pain. She hasno chest pain or shortness of breath today. Her appetite is somewhat diminished today there has been some nausea but no vomiting. Patient believes she was on an antibiotic earlier in the month. Review of Systems A 10 point review of systems is negative except as noted above. Medical and Surgical History: Reviewed and noted Social history: Lives at home Tobacco: Denies Physical Exam Vitals & Measurements T: 37.0 ???C(Oral) HR: 69(Monitored) RR: 16 BP: 182/74 SpO2: 93% HT: 17 cm WT: 85.8 kg Pleasant overweight 83-year-old alert and oriented skin warm and dry color is pink on room air. Theheart is regular without murmur gallop or rub. Lungs show a few coarse inspiratory rales at the extreme bases. There is no wheezing. The abdomen is nontender to deep palpation. There is some left CVAtenderness. 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 Medical Decision Making In reviewing the patient's outpatient medication list she does appear to have been on Augmentin 875for 7 days starting on February 17. Patient states that the medications we gave her have helped. Shewould like to try some oral nutrition. There has been no further loose stools here. She does agree to a catheterized urine specimen. This should allow us to rule out urinary tract infection. We couldthen focus on the diarrhea. It does appear that the patient would prefer to try this at home. Urinalysis is clear. Patient would like to try it at home. She was able to take some oral nutrition here.She will be sent home with Min BRAR and the prescription for Imodium. Assessment/Plan 1. Diarrhea (R19.7: Diarrhea, unspecified) 2. Nausea in adult (R11.0: Nausea) Orders: acetaminophen, 650 mg = 2 tab(s), Tab, Oral, Once, Stop date 03/09/24 22:47:00 EST, STAT, Start date 03/09/24 22:47:00 EST, 03/09/24 22:47:00 EST loperamide, 2 mg = 1 tab(s), Tab, Oral, q4hr, STAT, Start date 03/09/24 23:18:00 EST, 03/09/24 23:18:00 EST loperamide, 2 mg = 1 tab(s), Tab, Oral, Once, Stop date 03/09/24 19:41:00 EST, STAT, Start date 03/09/24 19:41:00 EST, 03/09/24 19:41:00 EST loperamide, 1 tab(s), Chewed, TID for loose stool, 20 tab(s), Refill(s) 0 ondansetron, 4 mg = 1 tab(s), Tab-Dis, Oral, Once, Stop date 03/09/24 23:17:00 EST, STAT, Start date 03/09/24 23:17:00 EST, 03/09/24 23:17:00 EST ondansetron, 4 mg = 1 tab(s), Oral, q8hr, # 6 tab(s), Refills(s) 0 ondansetron, 4 mg = 1 tab(s), Tab-Dis, Oral, Once, Stop date 03/09/24 20:31:00 EST, STAT, Start date 03/09/24 20:31:00 EST, 03/09/24 20:31:00 EST Sodium Chloride 0.9% intravenous solution, 1,000 mL, Soln-IV, IV, Once, Stop date 03/09/24 19:41:00EST, STAT, Start date 03/09/24 19:41:00 EST, Infuse over 61, minute(s) tramadol, 50 mg = 1 tab(s), Tab, Oral, Once, Stop date 03/09/24 22:47:00 EST, STAT, Start date 03/09/24 22:47:00 EST, 03/09/24 22:47:00 EST CBC w/ Auto Diff Clostridium Difficile PCR Comprehensive Metabolic Panel eGFR Enteric Panel by PCR Extra Blue Tube Extra SST Tube Fecal WBC Lactoferrin UA with Cult Rflx UA with Cult Rflx Medications Administered Given acetaminophen 325 mg Tab, 650 mg, Oral loperamide 2 mg Tab, 2 mg, Oral ondansetron 4 mg Dis Tab, 4 mg, Oral traMADOL 50 mg Tab, 50 mg, Oral Disposition Plan Patient Discharge Condition Stable Discharge Disposition Home Discharge Prescription List Prescriptions Imodium A-D EZ Chews 2 mg oral tablet, chewable, 1 tab(s), Chewed, TID, PRN Zofran ODT 4 mg Tab-Dis, 4 mg= 1 tab(s), Oral, q8hr Follow-up With When Contact Information YONATHAN MONTE [address] [place] [address]- Business (1) Additional Instructions: Call the office tomorrow Patient Education Food Choices to Help Relieve Diarrhea, Adult Diarrhea, Adult, Texy-uc-Pzha Problem List/Past Medical History Ongoing Arthritis Asthma CAD (coronary artery disease) Chronic anemia Chronic GERD Compression fracture of T12 vertebra with routine healing Diastolic (more content not included)...[facility] – JacksonComment on above:Result Comment: Electronically Signed By: James Nguyen MD\.br\Date and Time Signed: 03/09/24 23:23 ESTED Patient Summaryon [id number] Patient Summary ED Patient Summary [address] [address] Patient Discharge Instructions Person Information Name: CARLY MARCELINO Age: 83 Years Arrival Date: 03/09/2024 19:00:29 Discharge Diagnosis: 1:Diarrhea; 2:Nausea in adult Primary Care Physician: HARDEEP MCKENZIE DO Provider Information Primary Provider: James Nguyen MD Advanced Ecotherapist:None The exam and treatment you received in the Emergency Department were for an urgent problem and are not intended as complete care. It is important that you follow up with a doctor, nurse practitioner,or physician???s workforce development assistant for ongoing care. If your symptoms become worse or you do not improve asexpected and you are unable to reach your usual health care provider, you should return to the Emergency Department. We are available 24 hours a day. CARLY MARCELINO has been given the following list of patient education materials, prescriptions and follow-up instructions: Follow-up Instructions: With: Address: When: HARDEEP MCKENZIE [address] [place], [place] [id number] Business (1) Comments: Call the office tomorrow In the event that this physician does not participate in your insurance network, please consult with your insurance company to find a nearby participating provider. Patient Education Materials: Food Choices to Help Relieve Diarrhea, Adult; Diarrhea, Adult, Dlgi-eh-Vbqu A MESSAGE TO ALL PATIENTS REGARDING OPIOIDS PRESCRIPTION OPIOIDS: WHAT YOU NEED TO KNOW Prescription opioids can be used to help relieve wdwumkxc-ov-oybmch pain and are often prescribed following a [...] as well, even when taken as directed: ??? Tolerance???meaning you might need to take more of the medication for the same pain relief ??? Physical dependence???meaning you have symptoms of withdrawal when a medication is stopped ??? Increased sensitivity to pain ??? Constipation ??? Nausea, vomiting, and dry mouth ??? Sleepiness and dizziness ??? Confusion ??? Depression ??? Low levels of testosterone that can result in lower sex drive, energy, and strength ??? Itching and sweating RISKS ARE GREATER WITH: ??? History of drug misuse, substance use disorder, or overdose ??? Mental health conditions (such as depression or anxiety) ??? Sleep apnea ??? Older age (65 years and older) ??? Avoid alcohol while taking prescription opioids. Also, unless specifically advised by your health care provider, medications to avoid include: ??? Benzodiazepines (such as Xanax or Valium) ??? Muscle relaxants (such as Soma or Flexeril) ??? Hypnotics (such as Ambien or Lunesta) ??? Other prescription opioids KNOW YOUR OPTIONS Talk to your health care provider about ways to manage your pain that don???t involve prescription opioids. Some of these options may actually work better and have fewer risks and side effects. Options may include: ??? Pain relievers such as acetaminophen, ibuprofen, and naproxen ??? Some medication that are also used for depression or seizures ??? Physical therapy and exercise ??? Cognitive behavioral therapy, a psychological, goal-directed approach, in which patients learn how to modify physical, behavioral, and emotional triggers of pain and stress. IF YOU ARE PRESCRIBED OPIOIDS FOR PAIN: ??? Never take opioids in greater amounts or more often than prescribed. ??? Follow up with your primary health care provider. o Work together to create a plan on how to manage your pain. o Talk about ways to help manage your pain that don???t involve prescription opioids. o Talk about any and all concerns and side effects. ??? Help prevent misuse and abuse o Never sell or share prescription opioids. o Never use another person???s prescription opioids. ??? Store prescription opioids in a secure place and out of reach of others (this may include visitors, children, friends, and family). ??? Safely dispose of unused prescription opioids: Find your community drug take-back program or your pharmacy mail-back program, or flush them down the toilet, following guidance from the Food and Drug Administration (www.fda.gov/Drugs/ResourcesForYou). ??? Visit www.cdc.gov/drugoverdose to learn about the risks of opioids abuse and overdose. ??? If you believe you may be struggling (more content not included)...Normal [facility] HospitalExtra Blueon [id number] Collected PlasmaYes Invalid Interpretation CodeAvita Health System Bucyrus HospitalComment on above:Performed By: #### [id number] #### [facility] [address], [place] [address]CZHYJBMVPSVvvqysx By: SYSTEM SYSTEM on 12-94-4040Qzymeexqd/100 WBC (Bld)0.2 %Normal0.0 - 2.0 %Remisol HemeBasophils/Leukocytes Auto (Bld) [Pure # fraction]0.0 E9/LNormal0.0 - 0.2 E9/LRemisol HemeEosinophils (Bld) [#/Vol]0.0 E9/LNormal0.0 - 0.5 E9/LRemisol HemeEosinophils/100 WBC (Bld)0.4 %Normal0.0 - 8.0 %Remisol HemeErythrocyte distribution width (RBC) [Ratio]17.4 %High10.9 - 14.2 %Remisol HemeHematocrit (Bld) [Volume fraction]38.1 %Deswuz84.0 - 46.0 % Remisol HemeHemoglobin (Bld) [Mass/Vol]12.9 g/mUYlrdzw77.0 - 16.0 gm/dLRemisol HemeLymphocytes (Bld) [#/Vol]0.5 E9/LLow1.0 - 4.0 E9/LRemisol Heme Lymphocytes/100 WBC (Bld)8.6 %Low14.0 - 50.0 %Remisol HemeMCH (RBC) [Entitic mass]30.5 arFxmkcf68.0 - 34.0 pgRemisol HemeMCHC (RBC) [Mass/Vol]33.8 g/dLNormal 31.4 - 36.0 gm/dLRemisol HemeMCV (RBC) [Entitic vol]90.0 zQIhkpiu44.0 - 100.0 fL Remisol HemeMonocytes (Bld) [#/Vol]0.5 E9/LNormal0.2 - 1.0 E9/LRemisol Heme Monocytes/100 WBC (Bld)8.7 %Normal4.0 - 14.0 %Remisol HemeNeutrophils (Bld) [#/Vol]4.3 E9/LNormal2.0 - 7.5 E9/LRemisol HemeNeutrophils/100 WBC (Bld)82.1 % High36.0 - 75.0 %Remisol HemePlatelet mean volume (Bld) [Entitic vol]7.2 fL Normal6.4 - 10.8 fLRemisol HemePlatelets (Bld) [#/Vol]190.0 E9/VErwtgk240.0 - 500.0 E9/LRemisol HemeRBC (Bld) [#/Vol]4.2 E12/LLow4.3 - 5.9 E12/LRemisol Heme WBC corrected for nucl RBC Auto (Bld) [#/Vol]5.3 E9/LNormal4.0 - 11.0 E9/L Remisol HemePre-Arrival Noteon [id number]-Arrival NotePre-Arrival Note Pre-Arrival Summary [facility] Current Date: 03/09/2024 19:00:47 EST Gender: Female Date of : Age: 83 Pre-Arrival Type: EMS ETA: 03/09/2024 19:18:00 EST Primary Care Physician: Presenting Problem: flank pain Pre-Arrival User: Vernon Montano Referring Source: Location: CT Completion Date/Time: 03/09/2024 18:49:00 [facility] Emergency Department Pre-Hospital Report Form Vital Signs: Pre-Hospital Report: Treatment in Route: Response to Treatment: Misc. Issues:NormalAvita Health System Bucyrus HospitalUA with Cult Rflxon 03-09-2024 Bilirubin Ql (U)NegativeNormalNegativeAvita Health System Bucyrus HospitalComment on above:Performed By: #### [id number] #### [facility] [address], [place] [address]Viiivhb (U)ClearNormalClearAvita Health System Bucyrus HospitalComment on above:Performed By: #### [id number] #### [facility] [address], [place] [address]Gdopu (U)Light-YellowNormalYellowAvita Health System Bucyrus Hospital Comment on above:Result Comment: Microscopic readings are only performed on those samples that meet specific criteria set forth by [facility].Performed By: #### [id number] #### [facility] [address], [place] [address]Bplqsgp Ql (U)NegativermalNegCleveland Clinic Union Hospital Comment on above:Performed By: #### [id number] #### [facility] [address], [place] [address]Ilszqjoxgm Auto test strip (U) [Mass/Vol]NegativeNormalNegative [facility] HospitalComment on above:Performed By: #### [id number] #### [facility] [address], [place] [address]Xegpqks Auto test strip Ql (U)1+ mg/dLAbnormalNegCleveland Clinic Union HospitalComment on above:Performed By: #### [id number] #### [facility] [address], [place] [address]Qluhrrspk esterase Auto test strip Ql (U)NegativeNormalNegative [facility] HospitalComment on above:Performed By: #### [id number] #### [facility] [address] [place] [address]Xigvkha Auto test strip Ql (U)NegativeNormalNegativeAvita Health System Bucyrus HospitalComment on above:Performed By: #### [id number] #### [facility] [address] [place] [address]cB (U)7.5 [pH]Invalid Interpretation Code5.0-9.0[facility] HospitalComment on above:Performed By: #### [id number] #### [facility] [address] [place] [address]Qjrsytm Ql (U)TraceAbnormalNegativeAvita Health System [facility] Hospital Comment on above:Performed By: #### [id number] #### [facility] [address] [place] [address]Pxkyalcy gravity (U) [Rel density]1.018Invalid Interpretation Code1.005-1.030[facility] HospitalComment on above:Performed By: #### [id number] #### [facility] [address] [place] [address]Biygqosecrmo (U) [Mass/Vol]NegativeNormalNegativeAvita Health System Bucyrus HospitalComment on above:Performed By: #### [id number] #### [facility] [address] [place] [address]Uxzm of Urine collection methodClean CatchNoBerger HospitalComment on above:Performed By: #### [id number] #### [facility] [address] [place] [address]JSUUZAKQLXAwkjipg By: SYSTEM SYSTEM on 74-70-4544Hohczfxcc Ql (U)NegativeNormalNegativemg/dLPARKSIDE PSYCH[facility]ATR[facility] [place] UA Auto SSClarity (U)Clear (03/09/24 10:13 PM)NormalClearFMUSCOGEE UA Auto SSColor (U)Light-Yellow 1 (03/09/24 10:13 PM)NormalYellowPARKSIDE PSYCHIATRIC HOSPITAL CL[facility] [place] UA Auto SSComment on above:Interpretive Data: Microscopic readings are only performed on those samples that meet specific criteria set forth by [facility].Glucose Ql (U)NegativeNormalNegativemg/dLPARKSIDE PSYCHIATRIC HOS[facility] [place] UA Auto SSHemoglobin Auto test strip (U) [Mass/Vol]NegativeNormalNegativemg/dLPARKSIDE PSYCHIATRIC HOSPITAL [facility] [place] UA Auto SSKetones Auto test strip Ql (U)1+ mg/dLInvalid Interpretation CodeNegativemg/dLPARKSIDE PSYCHIATRIC [facility]OS[facility] [place] UA Auto SSLeukocyte esterase Auto test strip Ql (U)NegativeNormalNegativeLeu/uLPARKSIDE PSYCHIATRIC [facility] [place] UA Auto SS Nitrite Auto test strip Ql (U)NegativeNormalNegativemg/dLPARKSIDE PSYCHIATRIC [facility]OS[facility] [place] UA Auto SSpH (U) 7.5 *NA* (03/09/24 10:13 PM)Invalid Interpretation Code5.0 - 9.0PAR[facility] [place] UA Auto SSProtein Ql (U)Trace mg/dLInvalid Interpretation CodeNegativemg/dLPARKSIDE PSYCHIATRIC [facility] [place] UA Auto SSSpecific gravity (U) [Rel density]1.018 *NA* (03/09/24 10:13 PM)Invalid Interpretation Code1.005 - 1.030[facility] UA Auto SS Urobilinogen (U) [Mass/Vol]NegativeNormalNegativemg/dLPARKSIDE PSYCHIATRIC [facility] [place] UA Auto SSURINALYSIS Ordered By: James Nguyen on [id number] Spec DescClean Catch (03/09/24 10:13 PM)NormalPARKSIDE PSYCHIATRIC HOS[facility] [place] UA Auto SS eGFRon [id number] mL/min/1.73 d1Mzijkn>=59[facility] Universityer [facility] Hospital Of BaltimoreComment on above:Performed By: #### [id number] #### [facility] [address], [place] [address]RV Chest w/o Contraston [id number] Chest w/o ContrastExam Date/Time: 02/15/2024 11:14 EST Reason for Exam: R91.1 Report IMPRESSION: INTERVAL RESOLUTION 8MM RIGHT UPPER LOBE NODULE. INTERVAL DEVELOPMENT OF ADDITIONAL RIGHT MIDDLE LOBE NODULE DISCUSSED, LARGEST MEASURING [address] FOLLOW-UP CT OF THE CHEST IN 6 MONTHS IS RECOMMENDED TO ASSESS STABILITY OF FINDINGS, AND RULE OUT MALIGNANCY. STABLE T12 COMPRESSION FRACTURE. BILATERAL SHOULDER ARTHROPLASTY. CT IMAGING OF THE CHEST WITHOUT INTRAVENOUS CONTRAST MEDIUM. HISTORY: Nodule. TECHNICAL FACTORS: CT imaging of the chest was obtained and formatted as 2.0 mm contiguous axial images from the thoracic inlet through the adrenal glands. Sagittal and coronal reconstructions obtained during postprocessing. Intravenous contrast medium: None. Comparison: CT chest, October 16, 2023. FINDINGS: Right lung: Previously visualized partially pleural-based nodule, anterior right upper lobe no longer identified. Interval development of pleural-based, noncalcified 5 mm nodule, superior segment, right lower lobe (series 2, image 23, series 7, image 77). Interval development of 2.8 mm partially calcified pleural-based nodule right middle lobe, marginated superiorly by minor fissure (series 2, image 35, series 7, image 53). No consolidation, pleural effusion, pneumothorax. Atelectatic change and scarring right lung base. Left lung: No nodules, masses, consolidation, pleural effusion, pneumothorax. Lymph nodes: No hilar, mediastinal, or axillary lymph node enlargement. Thoracic aorta: Normal in course and caliber. Cardiac: Size normal. No pericardial effusion. Coronary artery calcification identified. Report Upper abdomen:Limited imaging upper abdomen shows punctate calcification spleen. Musculoskeletal:No osteoblastic, and no osteolytic lesions. Bilateral, bipolar shoulder arthroplasty. Compression fracture, T12, stable. All CT scans at this facility use dose modulation, iterative reconstruction, and/or weight based dosing when appropriate to reduce radiation dose to as low as reasonably achievable. Ordering Provider: HARDEEP MCKENZIE FINAL REPORT Dictated: 02/18/2024 4:44 pm Shahid Bear MD Signed (Electronic Signature): 02/18/2024 4:44 pm Signed by: Shahid Bear MD Transcribed by: BRENDA Technologist: BenitaCarolinas Continuecare Hospital At Universityabigail [facility] Urineon [id number] identified Cx Nom (U)Microbiology PROCEDURE: Urine Culture [R1] SOURCE: U CleanCatch BODY SITE: COLLECTED DATE/TIME: 01/11/2024 17:19 EDT RECEIVED DATE/TIME: 01/11/2024 19:07 EDT START DATE/TIME: 01/11/2024 19:07 EDT FREE TEXT SOURCE: HARDEEP MCKENZIE DO, DO, SETH M FINAL REPORTS Final Report [] Verified Date/Time: 01/14/2024 08:58 EST 2,000 cfu/ml Mixed skin contaminants Performing Locations R1: This test was performed at: [facility], [address] [place] [address], [id number] , [place], GdtwjtKubmcpBerger HospitalComment on above:Performed By: #### [id number] #### [facility] [address] [place] [address]Mkxgcsxfky - Chemistry and Chemistry - challengeOrdered By: SYSTEM SYSTEM on [id number] Ql (U)NegativeNegativePARKSIDE [facility] U[facility] Auto SS Urobilinogen (U) [Mass/Vol]NegativeNegativePARKSIDE PSYCH[facility]ATR[facility] [place] UA Auto SSLaboratory - Chemistry and Chemistry - challengeon [id number] (U) [Mass/Vol]NegativeNegative [facility] Medical CenterKetones Ql (U)NegativeNegUniversity Hospitals Conneaut Medical CenterpH (U)6.5 [pH]5.0-9.0[facility] Specific gravity (U) [Rel density]1.0251.005-1.030[facility] CenterLaboratory - Specimen informationon [id number] (U)ClearClear [facility] Medical CenterColor (U)Light-YellowYellowTriHealth McCullough-Hyde Memorial Hospitalpecimen type Nom (Spec)Clean CatchCincinnati Children'S Hospital Medical CenterLaboratory - Urinalysison [id number] esterase Test strip Ql (U) NegativeNegativeCincinnati Children'S Hospital Medical CenterNitrite Ql (U)NegativeNegative [facility] CenterLaboratory - UrinalysisOrdered By: SYSTEM SYSTEM on 03-51-2079Fuuvtag Ql (U)Trace mg/dLAbnormalNegativePARKSIDE [facility] [place] UA Auto SSNo Panel InformationOrdered By: Hardeep Mckenzie on 01-11-2024 UrineCincinnati Children'S Hospital Medical CenterNo Panel Informationon [id number] Occult BloodNegative [facility]'s HospitalURINALYSISOrdered By: SYSTEM SYSTEM on [id number] (U)Clear (01/11/24 3:30 PM)NormalClearFTMC UA Auto SSColor (U)Light-Yellow 1 (01/11/24 3:30 PM)NormalYellowPARKSIDE PSYCHIATRIC [facility] UA Auto SSComment on above:Interpretive Data: Microscopic readings are only performed on those samples that meet specific criteria set forth by [facility].Glucose Ql (U) NegativeNormalNegativemg/dLPARKSIDE PSYCH[facility]ATR[facility] [place] UA Auto SSHemoglobin Auto test strip (U) [Mass/Vol]NegativeNormalNegativemg/dLPARKSIDE PSYCH[facility]ATR[facility] [place] UA Auto SSKetones Auto test strip Ql (U)NegativeNormalNegativemg/dLPARKSIDE PSYCH[facility]ATRIC [facility] [place] UA Auto SSLeukocyte esterase Auto test strip Ql (U)NegativeNormalNegativeLeu/uLPARKSIDE PSYCH[facility] [place] [facility] Auto SSNitrite Auto test strip Ql (U) NegativeNormalNegativemg/dLPARKSIDE PSYCH[facility] [place]A Auto SSpH (U)6.5 *NA* (01/11/24 3:30 PM)Invalid Interpretation Code5.0 - 9.0[facility] UA Auto SSSpecific gravity (U) [Rel density]1.025 *NA* (01/11/24 3:30 PM)Invalid Interpretation Code1.005 - 1.030[facility] Auto SS URINALYSISOrdered By: Derick Gage on [id number] Spec DescClean Catch (01/11/24 3:30 PM)NormalPARKSIDE PSYCH[facility]ATR[facility] UA Auto SSUrinalysis with Microon 01-11-2024 Bilirubin Ql (U)NegativeNormalNegativeAvita Health System Bucyrus HospitalComment on above:Performed By: #### [id number] #### [facility] [address], [place] [address]Omvsovr (U)ClearNormalClearAvita Health System Bucyrus HospitalComment on above:Performed By: #### [id number] #### [facility] [address], [place] [address]Aklcs (U)Light-YellowNormalYAvita Health System [facility] Comment on above:Result Comment: Microscopic readings are only performed on those samples that meet specific criteria set forth by [facility].Performed By: #### [id number] #### [facility] [address], [place] [address]Ewsipzo Ql (U)NegativeNormalNegativeAvita Health [facility] Comment on above:Performed By: #### [id number] #### [facility] [address], [place] [address]Vdmxuwhvtc Auto test strip (U) [Mass/Vol]NegativeNormalNegative [facility] HospitalComment on above:Performed By: #### [id number] #### [facility] [address], [place] [address]Wgvlqhj Auto test strip Ql (U)NegativeNormalNegativeAvita Health System Bucyrus HospitalComment on above:Performed By: #### [id number] #### [facility] [address] [place] [address]Kydhmpioc esterase Auto test strip Ql (U)NegativeNormalNegative [facility] HospitalComment on above:Performed By: #### [id number] #### [facility] [address] [place] [address]Qjqooua Auto test strip Ql (U)NegativeNormalNegCleveland Clinic Union HospitalComment on above:Performed By: #### [id number] #### [facility] [address] [place] [address]kE (U)6.5 [pH]Invalid Interpretation Code5.0-9.0[facility] HospitalComment on above:Performed By: #### [id number] #### [facility] [address] [place] [address]Ykmrnmz Ql (U)TraceAbnormalNegativeAvita Health System [facility] Comment on above:Performed By: #### [id number] #### [facility] [address], [place] [address]Iszmwyny gravity (U) [Rel density]1.025Invalid Interpretation Code1.005-1.030[facility] HospitalComment on above:Performed By: #### [id number] #### [facility] [address] [place] [address]Zvwdljttlbmd (U) [Mass/Vol]NegativeNormalNegativeCarolinas Continuecare Hospital At Universityabigail [facility] Hospital [facility] BaltimoreComment on above:Performed By: #### [id number] #### [facility] [address], [place] [address]Ihza of Urine collection methodClekevin VelazquezAvita Health System Bucyrus HospitalComment on above:Performed By: #### [id number] #### [facility] [address], [place] [address]Hdnqyr Medicine Office/Clinic Noteon [id number] Medicine Office/Clinic NoteFafall river hospital Medicine Office/Clinic Note History of Present Illness TCU DISCHARGE after [facility] admit Inpatient [facility] 10/15?10/17. She was walking with walker outside when she fell backwards. She then complained of back pain, denied any neck or abdomen pain upon presentation to ED, denies striking head. Trauma scans were negative for acute injury. There was no family present to care for patient so she was admitted. She was confused to place, oriented to time and self. Admitted to [facility] for ST rehab stayand later transferred to TCU to complete ST rehab stay. Patient completed ST rehab stay. Plan to discharge on 11/02/2023 with Alfonso with PT/OT/RN. October 07 ED visit for new T12 comp fx, was released home. Hb 10.7 somewhat chronic normal indices CR 0.7 K+ 4.1 Na+ 136 ALB 3.6 PMHx- April 2023 for spontaneous subdural hematoma while on Plavix and Eliquis. History of falls. Has had 3 transfers to tertiary care center this year for this bleed issue. 10/07 ED for T12 fracture. Hx hyponatremia felt due to diuretics, discontinued. Anxiety, HTN, diastolic HF stage I, GERD, CAD 11/2021 NSTEMI LETICIA to RCA, mild PAH, chronic anemia PCP Dr. Hardeep Mckenzie Physical Exam GENERAL - 83yo female sitting in recliner, A+O x3, pleasant and conversive, alert to self, place and time. Good historian LUNGS - CTA CARDIAC - RRR, No murmur appreciated ABD - BSP, Non-distended, NT MUSCLULOSKELETAL - tender to palpation in lower lumbar area bilaterally EXT - No edema noted Assessment/Plan 1. Unspecified fall, initial encounter (W19.XXXA: Unspecified fall, initial encounter) Completed ST rehab stay Cognition appears to have returned to baseline. Alert and oriented x 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 APOORVA (generalized anxiety disorder) (F41.1: Generalized anxiety disorder) This spring, she was started on sertraline but did not tolerate. No other SSRI's were tried. Then she was initially on some alprazolam and when she was at [facility] Dr Mcneal changed to lorazepam. Daughter related that compared to PRN, scheduled medication seemed to work better. It was discussed that there is a concern that benzodiazepines have been linked to cognitive issues, falls and injuries in geriatrics. They were open to further SSRI attempts. She denied troubles sleeping but stated she has worries on mind, mind going. Citalopram 10 mg every evening was trialed with the goal of 20 mg by discharge if tolerating. She will be discharged with 20 mg. Continue Lorazepam 0.5 mg 3 times a day as needed but she was only using one tab daily in TCU. Follow up with PCP for further evaluation of need for lorazepam 4. CAD (coronary artery disease) (I25.10: Atherosclerotic heart disease of [place] coronary artery without angina pectoris) Meds reviewed with them, Ext Rx Hx reviewed and seem to be correct. 5. Compression fracture of T12 vertebra with routine healing (S22.080D: Wedge compression fracture of T11-T12 vertebra, subsequent encounter for fracture with routine healing) Found on CT 10/08/2023 Over the last couple days patient has been complaining a little more about lower back pain located in the kidney area. UA was completed and found to be negative. Since patient is being discharged today we will send with cyclobenzaprine 10 mg 3 times a day as needed. Continue tramadol 50 every 4 hour s as needed for pain. Perhaps being more familiar setting will help to alleviate some of the pain. If pain does not resolve, patient is advised to go to ED for further evaluation. PCP to consider osteoporosis treatment for this fragility fx. Orders: citalopram, 20 mg = 1 tab(s), Oral, Daily, # 30 tab(s), Refills(s) 0, Pharmacy: [facility], 170, cm, 10/16/23 15:59:00 EDT, Height/Length Dosing, 88, kg, 10/16/23 15:59:00 EDT, Weight Dosing cyclobenzaprine, 10 mg = 1 tab(s), Oral, TID, PRN for spasm, # 30 tab(s), Refills(s) 0, Pharmacy: [facility], 170, cm, 10/16/23 15:59:00 EDT, Height/Length Dosing, 88, kg, 10/16/23 15:59:00EDT, Weight Dosing lisinopril, 30 mg = 1 tab(s), Oral, Daily, # 30 tab(s), Refills(s) 0, Pharmacy: [facility], 170, cm, 10/16/23 15:59:00 EDT, Height/Length Dosing, 88, kg, 10/16/23 15:59:00 EDT, Weight Dosing lorazepam, 0.5 mg = 1 tab(s), Oral, q8hr, PRN as needed for anxiety, # 30 tab(s), Refills(s) 0, Pharmacy: [facility], 170, cm, 10/16/23 15:59:00 EDT, Height/Length Dosing, 88, kg, 10/16/23 15:59:00 EDT, Weight Dosing lorazepam, 0.5 mg = 1 tab(s), Oral, TID, # 15 tab(s), Refills(s) 0, other reason (Rx) tramadol, 50 mg = 1 tab(s), Oral, q4hr, PRN as needed for pain, # 90 tab(s), Refills(s) 0, Pharmacy: [facility], 170, cm, 10/16/23 15:59:00 EDT, Height/Length Dosing, 88, kg, 10/16/23 15:59:00 EDT, Weight Dosing (more content not included)...[facility] – JacksonComment on above:Result Comment: Electronically Signed By: Trini SCHROEDER, Artem Ornelas.br\Date and Time Signed: 11/02/23 11:04 EDTUA with Cult Rflxon [id number] (U) [Mass/Vol]SEE COMMENTInvalid Interpretation [facility] Comment on above:Performed By: #### [id number] #### [facility] [address] [facility], [place] [address]Wkbtggbzd Ql (U)SEE COMMENTInvalid Interpretation [facility] HospitalComment on above:Result Comment: No urine collected. To be credited. 11/01/2023 10:40:27 EDTPerformed By: #### [id number] #### [facility] [address] [facility], [place] [address]Mrcbrxc (U)SEE COMMENTInvalid Interpretation [facility] HospitalComment on above:Result Comment: No urine collected. To be credited. 11/01/2023 10:40:27 EDTPerformed By: #### [id number] #### [facility] [address] [facility], [place] [address]Cryzv (U)SEE COMMENTInvalid Interpretation [facility] HospitalComment on above:Result Comment: No urine collected. To be credited. 11/01/2023 10:40:27 EDT Microscopic readings are only performed on those samples that meet specific criteria set forth by [facility].Performed By: #### [id number] #### [facility] [address] [facility], [place] [address]Iqqvfse Ql (U)SEE COMMENTInvalid Interpretation [facility] HospitalComment on above:Result Comment: No urine collected. To be credited. 11/01/2023 10:40:27 EDTPerformed By: #### [id number] #### [facility] [address] [facility], [place] [address]Bciapyhjmc Auto test strip (U) [Mass/Vol]SEE COMMENTInvalid Interpretation [facility] HospitalComment on above:Result Comment: No urine collected. To be credited. 11/01/2023 10:40:27 EDTPerformed By: #### [id number] #### [facility] [address] [facility], [place] [address]Lgdnlaq Auto test strip Ql (U)SEE COMMENTInvalid Interpretation [facility] HospitalComment on above:Result Comment: No urine collected. To be credited. 11/01/2023 10:40:27 EDTPerformed By: #### [id number] #### [facility] [address] [facility], [place] [address]Cdegalfda esterase Auto test strip Ql (U)SEE COMMENTInvalid Interpretation [facility] HospitalComment on above:Result Comment: No urine collected. To be credited. 11/01/2023 10:40:27 EDTPerformed By: #### [id number] #### [facility] [address] [facility], [place] [address]Ytuypcy Auto test strip Ql (U)SEE COMMENTInvalid Interpretation [facility] HospitalComment on above:Result Comment: No urine collected. To be credited. 11/01/2023 10:40:27 EDTPerformed By: #### [id number] #### [facility] [address] [facility], [place] [address]dX (U)SEE COMMENTInvalid Interpretation Code5.0-9.0[facility] HospitalComment on above:Result Comment: No urine collected. To be credited. 11/01/2023 10:40:27 EDTPerformed By: #### [id number] #### [facility] [address] [place], [place] [address]Jbpbqyv Ql (U)SEE COMMENTInvalid Interpretation [facility] HospitalComment on above:Result Comment: No urine collected. To be credited. 11/01/2023 10:40:27 EDTPerformed By: #### [id number] #### [facility] [address] [facility], [place] [address]Evlndjcv gravity (U) [Rel density]SEE COMMENTInvalid Interpretation Code1.005-1.030[facility] HospitalComment on above:Result Comment: No urine collected. To be credited. 11/01/2023 10:40:27 EDTPerformed By: #### [id number] #### [facility] [address], [place] [address]FJ with Cult Rflxon [id number] of Urine collection method Clean CatchNormalAvita Health System Bucyrus HospitalComment on above:Performed By: #### [id number] #### [facility] [address] [place], [place] [address]JACSNUFHQJXszluoo By: Aurea Wick on 27-63-4289Ljkvsmwxs Ql (U)SEE COMMENTInvalid Interpretation CodePARKSIDE [facility] U[facility] Auto SSComment on above:Result Comment: No urine collected. To be credited. 11/01/2023 10:40:27 EDTClarity (U)SEE COMMENTInvalid Interpretation CodePARKSIDE PSYCHIATR[facility] UA Auto SSComment on above:Result Comment: No urine collected. To be credited. 11/01/2023 10:40:27 EDTColor (U) SEE COMMENTInvalid Interpretation CodePARKSIDE PSYCHIATR[facility] UA Auto SSComment on above:Result Comment: No urine collected. To be credited. 11/01/2023 10:40:27 EDT Interpretive Data: Microscopic readings are only performed on those samples that meet specific criteria set forth by [facility]. Glucose Ql (U)SEE COMMENTInvalid Interpretation CodePARKSIDE PSYCHI[facility] [place] UA Auto SSComment on above:Result Comment: No urine collected. To be credited. 11/01/2023 10:40:27 EDTHemoglobin Auto test strip (U) [Mass/Vol]SEE COMMENTInvalid Interpretation CodePARKSIDE PSYCH[facility] [place] UA Auto SSComment on above:Result Comment: No urine collected. To be credited. 11/01/2023 10:40:27 EDTKetones Auto test strip Ql (U)SEE COMMENT Invalid Interpretation CodePARKSIDE PSYCH[facility] [place] UA Auto SSComment on above:Result Comment: No urine collected. To be credited. 11/01/2023 10:40:27 EDTLeukocyte esterase Auto test strip Ql (U)SEE COMMENTInvalid Interpretation CodePARKSIDE PSY[facility] [place]A Auto SS Comment on above:Result Comment: No urine collected. To be credited. 11/01/2023 10:40:27 EDTNitrite Auto test strip Ql (U)SEE COMMENTInvalid Interpretation CodePARKSIDE PSYCH[facility] [place] UA Auto SSComment on above:Result Comment: No urine collected. To be credited. 11/01/2023 10:40:27 EDTpH (U)SEE COMMENTInvalid Interpretation Code5.0 - 9.0[facility] UA Auto SSComment on above:Result Comment: No urine collected. To be credited. 11/01/2023 10:40:27 EDTProtein Ql (U)SEE COMMENTInvalid Interpretation CodePARKSIDE PSYCHIATR[facility] [place] UA Auto SSComment on above:Result Comment: No urine collected. To be credited. 11/01/2023 10:40:27 EDTSpecific gravity (U) [Rel density]SEE COMMENTInvalid Interpretation Code1.005 - 1.030[facility] UA Auto SSComment on above:Result Comment: No urine collected. To be credited. 11/01/2023 10:40:27 EDTUrobilinogen (U) [Mass/Vol]SEE COMMENTInvalid Interpretation CodePARKSIDE PSYCHIATRIC [facility] [place] UA Auto SSURINALYSISOrdered By: Pat Mercedes on [id number] Spec DescClean Catch (10/31/23 6:56 PM)NormalPARKSIDE PSYCHIATRIC [facility] [place] UA Auto SSCoding Queryon [id number] Query Coding Query From: Jana Mei RN To: Lima Bean CNP; Sent: 10/18/2023 14:03:57 EDT ! Subject: Coding Query Due Date/Time: 10/19/2023 14:03:00 EDT Caller Name: CARLY MARCELINO; Caller Number: H Documentation in the medical record indicates this patient has been admitted with or diagnosed as having: confusion The following is also documented in the medical record: 10/16 Patient update: She is confused to place, knows her name/ and month/year. She re-orients easily. 10/17 PT: Pt requires constant directional cues. Pt has difficulty following simple instructions. Sheis oriented to self and place but with bouts of confusion; she is unable to tell me where she livesand / or her birthday; pt stares and has delayed responses when asked simple questions. Historical --> 08/12/2023 ED Triage: Chief Complaint : Pt came with the squad d/t AMS and increased confusion that had been worst since . Pt fell 2 wks ago and got Subdural hematoma. Hx of seizure and dementia. No weakness, no numbness, no dizziness, no speech or vision changes. Based on your medical judgment, can you please clarify any underlying cause of the above clinical indicators/diagnosis? Select all that apply: Please select the TYPE of Dementia : [___]Vascular Dementia [___]Unspecified Dementia [___]Dementia in other diseases classified elsewhere Please select the SEVERITY of Dementia : [___]Mild [___]Moderate [___]Severe [___]Unspecified In responding to this request, please exercise your independent professional judgement. The fact that a question is asked does not imply that any particular answer is desired or expected. Thank you! jana [phone] From: Lima Bean CNP To: Jana Mei RN; Sent: 10/22/2023 10:18:39 EDT Subject: RE: Coding Query Caller Name: CARLY MARCELINO; Caller Number: H I am going to go with dementia unspecified- I add d to my DC noteNoBerger HospitalCoding QueryCoding Query From: Jana Mei RN To: Lima Bean CNP; Sent: 10/18/2023 13:52:02 EDT ! Subject: Coding Query Due Date/Time: 10/19/2023 13:51:00 EDT Caller Name: CARLY MARCELINO; Caller Number: H Documentation in the medical record indicates that this patient has been identified to have and/or is being treated for a Pressure (Decubitus) Ulcer/Injury of the following site : Pressure ulcer bilateral buttock stage I The following is also documented in the medical record: Nursing assessment on admission (i-view)-Pressure ulcer bilateral buttock stage I Based on your medical judgment, can you further clarify the stage of the pressure (decubitus) ulcer, if present, as well as if the ulcer was present on admission? Location (*Required): [___]Pressure Ulcer/Injury Stage I (Nonblanchable erythema of intact skin) Laterality: [___]Right [___]Left [___]N/A [___]Pressure Ulcer/Injury Stage II (Partial thickness skin loss involving epidermis, dermis, or both) Laterality: [___]Right [___]Left [___]N/A [___]Other: In responding to this request, please exercise your independent professional judgement. The fact that a question is asked does not imply that any particular answer is desired or expected. Thank you!jana [phone] From: Lima Bean CNP To: Sigifredo GONZALEZ, Jana Leon; Sent: 10/22/2023 09:57:40 EDT Subject: RE: Coding Query Caller Name: CARLY MARCELINO; Caller Number: H My apologies- updated my DC noteNoCarroll Romero Medical CenterED Note-Physicianon [id number] Note-PhysicianED Note-Physician Basic Information Time Seen: Evert Perkins PA-C 10/16/2023 15:50 Chief Complaint pt to ER with c/o lower back pain after a fall today around 1530. denies any neck pain or headstrike. pt states had a fall a couple weeks ago with a low back fracture. denies any blood thinners History of Present Illness 83-year-old female comes to the ED for evaluation of injury status post fall. The patient states she was walking with her walker outside when she fell backwards. This sounds have been a mechanical fall. She fell landing on her back. She has a history of recurrent falls and recently suffered a thoracic fracture. She complains of pain primarily to the low back at this time. She does not believe shestruck her head or any loss of consciousness. She denies any neck chest or abdominal pain. No shortness of breath. She does not believe she takes any anticoagulation. Review of Systems A 10 point review of systems is negative except as noted above. Medical and Surgical History: Reviewed and noted Social history: Lives at home Tobacco: Denies Physical Exam Vitals & Measurements T: 37 ?C(Oral) HR: 74(Monitored) RR: 18 BP: 185/86 SpO2: 93% HT: 170 cm WT: 88 kg BMI: 30.45 Nurses notes and vital signs reviewed and patient is not hypoxic. General: Awake and alert, no distress Skin: Warm, dry, no pallor noted. Head: Atraumatic. Neck: No JVD. No tenderness Eye: Normal conjunctiva. Ears, Nose, Mouth, and Throat: Moist mucous membranes Cardiovascular: Strong distal pulses. Chest wall: Nontender Respiratory: Respirations are nonlabored. Back: Somewhat decreased range of motion with generalized tenderness Musculoskeletal: No gross deformity. Good range of motion of all major joints. Chronic appearing lower extremity edema Gastrointestinal: Soft and nontender. Urological: Neurological: Awake and alert. No focal deficits. Follows commands. GCS 15. Psychiatric: Cooperative. Medical Decision Making Patient presents with a sounds like a mechanical fall. Fell using her walker landing on her back. Laboratory studies reviewed and noted. EKG shows no ischemic changes. Trauma scans are negative for acute injury. Results are discussed with the patient and she wants to be discharged home. We reached out to the patient's family, she lives with her daughter. The daughter is currently stuck in [facility] to weather issues and has not been able to get home. There was no one else available to take custody of the patient, and there is no safe way to discharge her home. Therefore case is discussed the hospitalist for admission. Assessment/Plan Back pain (M54.9: Dorsalgia, unspecified) Fall (W19.XXXA: Unspecified fall, initial encounter) Orders: oxycodone, 5 mg = 1 tab(s), Tab, Oral, Once, Stop date 10/16/23 18:04:00 EDT, STAT, Start date 10/16/23 18:04:00 EDT, 10/16/23 18:04:00 EDT ABO/Rh ABO/Rh History Check Antibody Screen Basic Metabolic Panel Blood Bank ID# CBC w/ Auto Diff Consult to General Surgery CT Abdomen/Pelvis w/ Contrast CT Chest w/ Contrast CT Head or Brain w/o Contrast CT Spine Cervical w/o Contrast Drug Screen Urine ECG 12 Lead Adult ED Cardiac Monitoring eGFR Ethanol Level Hepatic Function Panel Lactic Acid Lipase Level Oxygen Therapy PT & PTT Pulse Oximetry Continuous Saline Lock Insert Troponin UA with Cult Rflx Medications Administered Given oxyCODONE 5 mg Tab, 5 mg, Oral Disposition Plan Patient Discharge Condition Disposition: Discharged home Condition: Improved and stable Counseled: Patient and/or family were counseled to workup, results, treatment plan and follow-up recommendations Discharge Prescription List Prescriptions No active prescription medications Follow-up With When Contact Information HARDEEP MCKENZIE In 3 days 10/19/2023 EDT [address] [facility] [address] [place] [address]- Business (1) Additional Instructions: Patient Education Fall Prevention in the Home, Adult Attestation I performed a substantive part of the MDM during the patient?s E/M visit. I personally made or approved the documented management plan and acknowledge its risk of complications. (Independent Interpretation) My (EKG/X-Ray/US/CT) interpretation as above. (Discussion) Management/test interpretation discussed with APC. This report was transcribed using voice recognition software. Every effort was made to ensure accuracy, however, inadvertently computerized exhaust emissions inspector mistakes may be present. Appropriate healthcare PPE was used in evaluating this patient. Problem List/Past Medical History Ongoing Anxiety Arthritis Asthma CAD (coronary artery disease) Chronic anemia Chronic GERD Diastolic dysfunction Fall Hepatic cyst HTN Hyperlipidemia Mild pulmonary hypertension Morbid obesity MRSA (methicillin resistant staph aureus) culture positive Seasonal allergies Seizure disorder Traumatic hematoma of left knee Histor (more content not included)...[facility] JacksonComment on above:Result Comment: Electronically Signed By: Evert Perkins PA-C\.br\Date and Time Signed: 10/15/2417:48 EDT\.br\Electronically Co-Signed By: Evert Perkins PA-C\.br\Date and Time Co-Signed: 10/16/23 19:05 EDT\.br\Electronically Co-Signed By: Hank Beard DO\.br\Date and Time Co-Signed: 10/22/23 09:30 EDT Family Medicine Office/Clinic Noteon [id number] Medicine Office/Clinic NoteF[facility] Office/Clinic Note History of Present Illness [facility] ADMIT from [facility] 10/15?8 Was walking with walker outside when fell Backwards, complains of back pain. There was no family present to care for patient and so was admitted. She was confused to place, oriented to time and self. there is no discharge note or progress note on the dateof discharge? Here for rehab stay. October 07 ED visit for new T12 comp fx, was released home. Hb 10.7 somewhat chronic normal indices CR 0.7 K+ 4.1 Na+ 136 ALB 3.6 PMHx- April 2023 for spontaneous subdural hematoma while on Plavix and Eliquis. History of falls. Has had 3 transfers to tertiary care center this year for this bleed issue. 10/07 ED for T12 fracture. Hx hyponatremia felt due to diuretics, discontinued. Anxiety, HTN, diastolic HF stage I, GERD, CAD 11/2021 NSTEMI LETICIA to RCA, mild PAH, chronic anemia PCP Dr. Hardeep Mckenzie Physical Exam Alert, very pleasant and conversive WF in chair. We are joined by her dtr and gnd son. Pt alert to self, place and time. Good historian. Lungs CTA Ht RRR wo murmur Abd nondistended BLE- trace edema, wearing OTC support hosiery Assessment/Plan Not on inhaler, baclofen Add citalopram 10, try to get lorazepam the as needed 1. Fall at home (W19.XXXA: Unspecified fall, initial encounter) rehab stay cognition appears to have cleared to baseline 2. APOORVA (generalized anxiety disorder) (F41.1: Generalized anxiety disorder) this spring was started on sertraline but not tolerated. No other SSRI's tried. Was initially then on some alprazolam and when at [facility] Mcneal changed to lorazepam. Dtr relates that compared to prn, scheduled seemed to work better. Disc'd concerns that benzos have been linked to cognitive issues, falls and injuries in geriatrics. They are open to further SSRI attempts. Denies troubles sleeping but does have worries on mind, mind going. Will trial citalopram 10 mg qPM, goal to 20 mg by discharge if tolerating. Will cont lorazepam tid for now but would be great to get to prn Another option would be buspirone. 3. CAD (coronary artery disease) (I25.10: Atherosclerotic heart disease of [place] coronary artery without angina pectoris) Meds reveiwed with them, Ext Rx Hx reviewed and seem to be correct. 4. Unspecified place in unspecified non-institutional (private) residence as the place of occurrence of the external cause (Y92.009: Unspecified place in unspecified non-institutional (private) residence as the place of occurrence of the external cause) Charge Master Analyst Code 5. Compression fracture of T12 vertebra with routine healing (S22.080D: Wedge compression fracture of T11-T12 vertebra, subsequent encounter for fracture with routine healing) on CT 10/08/2023 does not seem to be really bothering her. PCP to consider osteoporosis tx for this fragility fx Full Code Follow-up No qualifying data available Problem List/Past Medical History Ongoing Arthritis Asthma CAD (coronary artery disease) Chronic anemia Chronic GERD Compression fracture of T12 vertebra with routine healing Diastolic dysfunction Fall Fall at home APOORVA (generalized anxiety disorder) Hepatic cyst HTN Hyperlipidemia Mild pulmonary hypertension MRSA (methicillin resistant staph aureus) culture positive Seasonal allergies Seizure disorder Traumatic hematoma of left knee Historical No qualifying data Procedure/Surgical History PCI - Percutaneous coronary intervention (11/24/2021), Eye surgery (2003), Back sx, begnign tumor removal, Bilateral knee sx, bilateral shoulder sx, Breast biopsy sample, left foot reconstruction, pharygeal plasty. Medications acetaminophen 325 mg Tab, 650 mg= 2 tab(s), Oral, q6hr, PRN citalopram 10 mg Tab, 10 mg= 1 tab(s), Oral, Once a day (at bedtime) famotidine 40 mg Tab, 40 mg= 1 tab(s), Oral, Daily ferrous sulfate 325 mg Tab, 325 mg= 1 tab(s), Oral, Daily Fish Oil, 1 cap(s), Oral, Bedtime gabapentin 300 mg Cap, 300 mg= 1 cap(s), Oral, TID lisinopril 20 mg Tab, 20 mg= 1 tab(s), Oral, Daily LORazepam 0.5 mg Tab, 0.5 mg= 1 tab(s), Oral, TID LORazepam 0.5 mg Tab, 0.5 mg= 1 tab(s), Oral, TID magnesium oxide 400 mg Tab, 400 mg= 1 tab(s), Oral, Bedtime Metoprolol tartrate 25 mg Tab, 12.5 mg= 0.5 tab(s), Oral, BID montelukast 10 mg Tab, 10 mg= 1 tab(s), Oral, Daily Multivitamins and Minerals oral tablet pravastatin 40 mg Tab, 40 mg= 1 tab(s), Oral, Daily Zyrtec, 10 mg, Oral, Daily, PRN Allergies hydroCHLOROthiazide (Hyponatremia) Depakote Dilantin Norvasc Procardia TEGretol labetalol Social History Alcohol - Low Risk, 07/13/2017 Current, Beer, 1-2 times per year, 12/12/2021 Current, 04/29/2018 Current, Beer, 1-2 times per month, Alcohol use interferes with work or home: No. Drinks more than intended: No. Others hurt by drinking: No. Ready to change: No. Household alcohol concerns: No., 07/13/2017 Substance Abuse - Denies Substance Abuse, 08 (more content not included)... NormalAvita Health System Bucyrus HospitalComment on above:Result Comment: Electronically Signed By: ROSALINDA VICTOR, Royce\.br\Date and Time Signed: 10/21/23 21:52 EDTBMP on 57-25-4872Jkzrl gap [Moles/Vol]8 mmol/LNormal6-16[facility] Comment on above:Performed By: #### [id number] #### [facility] [address], [place] [address]Lxdctia [Mass/Vol]9.1 mg/dLNormal8.9-11.1[facility] BaltimoreComment on above:Performed By: #### [id number] #### [facility] [address], [place] [address]Frqjaxgh [Moles/Vol]100 mmol/UAsy637-476AjdmxyAvita Health System Bucyrus HospitalComment on above:Performed By: #### [id number] #### [facility] [address], [place] [address]UH3 [Moles/Vol]32 mmol/JLfin82-11UoweeoAvita Health System Bucyrus Hospital Comment on above:Performed By: #### [id number] #### [facility] [address], [place] [address]Zgmyihvroh [Mass/Vol]0.7 mg/dLNormal0.5-1.3FWright-Patterson Medical CenterComment on above:Performed By: #### [id number] #### [facility] [address], [place] [address]Mjcwena [Mass/Vol]97 mg/xUZqnbjp28-988BabuzyAvita Health System Bucyrus HospitalComment on above:Performed By: #### [id number] #### [facility] [address], [place] [address]Spowzwzye [Moles/Vol]4.1 mmol/LNormal3.5-5.3FWright-Patterson Medical CenterComment on above:Performed By: #### [id number] #### [facility] [address], [place] [address]Fgdhpw [Moles/Vol]136 mmol/NVexkis349-605KyzcvhAvita Health System Bucyrus HospitalComment on above:Performed By: #### [id number] #### [facility] [address], [place] [address]Sxdf nitrogen [Mass/Vol]17 mg/dLNormal5-21[facility] HospitalComment on above:Performed By: #### [id number] #### [facility] [address], [place] [address]Tggj nitrogen/Creatinine [Mass ratio]24 No EtydmRatu22-42FvdcqpAvita Health System Bucyrus HospitalComment on above:Performed By: #### [id number] #### [facility] [address], [place] [address]FOL w/ Auto Diffon 79-10-2365Pixqtozet/100 WBC (Bld)0.5 %Normal 0.0-2.0[facility] HospitalComment on above:Performed By: #### [id number] #### [facility] [address], [place] [address]Gzlleislv/Leukocytes Auto (Bld) [Pure # fraction]0.0 E9/LNormal 0.0-0.2FWright-Patterson Medical CenterComment on above:Performed By: #### [id number] #### [facility] [address], [place] [address]Hmtoosdvszh (Bld) [#/Vol]0.2 E9/LNormal0.0-0.5FWright-Patterson Medical CenterComment on above:Performed By: #### [id number] #### [facility] [address], [place] [address]Sdgregcdilr/100 WBC (Bld)3.0 %Normal0.0-8.0[facility] HospitalComment on above:Performed By: #### [id number] #### [facility] [address] [place] [address]Vdaikoohzqg distribution width (RBC) [Ratio]16.0 %High10.9-14.2 [facility] Bucy[facility] HospitalComment on above:Performed By: #### [id number] #### [facility] [address] [place] [address]Vmhdgpsgzo (Bld) [Volume fraction]32.3 %Low34.0-46.0[facility] HospitalComment on above:Performed By: #### [id number] #### [facility] [address] [place] [address]Owqpigtzfy (Bld) [Mass/Vol]10.7 g/dLLow12.0-16.0[facility] HospitalComment on above:Performed By: #### [id number] #### [facility] [address] [place] [address]Fkzsiwenrng (Bld) [#/Vol]1.1 E9/LNormal1.0-4.0[facility] HospitalComment on above:Performed By: #### [id number] #### [facility] [address], [place] [address]Drtgxablrqs/100 WBC (Bld)20.9 %Cjktxr35.0-50.0[facility] HospitalComment on above:Performed By: #### [id number] #### [facility] [address] [place] [address]HZS (RBC) [Entitic mass]29.1 hsIsowgj37.0-34.0[facility] HospitalComment on above:Performed By: #### [id number] #### [facility] [address] [place] [address]KDXM (RBC) [Mass/Vol]33.1 g/jZFdrgxr00.4-36.0[facility] HospitalComment on above:Performed By: #### [id number] #### [facility] [address] [place] [address]GSR (RBC) [Entitic vol]88.0 hYJbaecb34.0-100.0[facility] HospitalComment on above:Performed By: #### [id number] #### [facility] [address] [place] [address]Dquxtjkvn (Bld) [#/Vol]0.6 E9/LNormal0.2-1.0[facility] HospitalComment on above:Performed By: #### [id number] #### [facility] [address] [place] [address]Zzjxfdbxiyv (Bld) [#/Vol]3.5 E9/LNormal2.0-7.5FWright-Patterson Medical CenterComment on above:Performed By: #### [id number] #### [facility] [address] [place] [address]Rmkozsytqvq/100 WBC (Bld)64.6 %Vxikqh91.0-75.0[facility] HospitalComment on above:Performed By: #### [id number] #### [facility] [address] [place] [address]Zuwxkcap mean volume (Bld) [Entitic vol]6.7 fLNormal6.4-10.8 [facility] Bucy[facility] HospitalComment on above:Performed By: #### [id number] #### [facility] [address], [place] [address]Hsqhueimr (Bld) [#/Vol]332.0 E9/CGcpbjw463.0-500.0[facility] HospitalComment on above:Performed By: #### [id number] #### [facility] [address], [place] [address]RQF (Bld) [#/Vol]3.7 E12/LLow4.3-5.9[facility] Comment on above:Performed By: #### [id number] #### [facility] [address] [place] [address]LRO corrected for nucl RBC Auto (Bld) [#/Vol]5.4 E9/LNormal 4.0-11.0[facility]cy[facility] HospitalComment on above:Performed By: #### [id number] #### [facility] [address] [place] [address]TEJOHDDSKOnsxywb By: SYSTEM SYSTEM on 98-83-0239Uoskv gap [Moles/Vol]8 mmol/LNormal6 - 16 mEq/LRemisol ChemCalcium [Mass/Vol]9.1 mg/dL Normal8.9 - 11.1 mg/dLRemisol ChemChloride [Moles/Vol]100 mmol/NLgg239 - 111 mmol/LRemisol ChemCO2 [Moles/Vol]32 mmol/LHigh21 - 31 mmol/LRemisol Chem Creatinine [Mass/Vol]0.7 mg/dLNormal0.5 - 1.3 mg/dLRemisol PcwokWNZ67 mL/min/1.73 y6Zfkger>=59mL/min/1.73 l4Oeghdkd ChemGlucose [Mass/Vol]97 mg/dL Kifhzi07 - 199 mg/dLRemisol ChemPotassium [Moles/Vol]4.1 mmol/LNormal3.5 - 5.3 mmol/LRemisol ChemSodium [Moles/Vol]136 mmol/TBnhclb015 - 145 mmol/LRemisol Chem Urea nitrogen [Mass/Vol]17 mg/dLNormal5 - 21 mg/dLRemisol ChemUrea nitrogen/Creatinine [Mass ratio]24 mg/jbAyzq71 - 20Remisol ChemHEMATOLOGYOrdered By: SYSTEM SYSTEM on 19-28-5826Anvcgyegg/100 WBC (Bld)0.5 %Normal0.0 - 2.0 % Remisol HemeBasophils/Leukocytes Auto (Bld) [Pure # fraction]0.0 E9/LNormal0.0 - 0.2 E9/LRemisol HemeEosinophils (Bld) [#/Vol]0.2 E9/LNormal0.0 - 0.5 E9/LRemisol HemeEosinophils/100 WBC (Bld)3.0 %Normal0.0 - 8.0 %Remisol HemeErythrocyte distribution width (RBC) [Ratio]16.0 %High10.9 - 14.2 %Remisol HemeHematocrit (Bld) [Volume fraction]32.3 %Low34.0 - 46.0 %Remisol HemeHemoglobin (Bld) [Mass/Vol]10.7 g/dLLow12.0 - 16.0 gm/dLRemisol HemeLymphocytes (Bld) [#/Vol]1.1 E9/LNormal1.0 - 4.0 E9/LRemisol HemeLymphocytes/100 WBC (Bld)20.9 %Ipyhal19.0 - 50.0 %Remisol HemeMCH (RBC) [Entitic mass]29.1 wsWzngfv16.0 - 34.0 pgRemisol HemeMCHC (RBC) [Mass/Vol]33.1 g/cDZhdbvo44.4 - 36.0 gm/dLRemisol HemeMCV (RBC) [Entitic vol]88.0 qRXyfpnb92.0 - 100.0 fLRemisol HemeMonocytes (Bld) [#/Vol]0.6 E9/LNormal0.2 - 1.0 E9/LRemisol HemeMonocytes/100 WBC (Bld)11.0 %Normal4.0 - 14.0 %Remisol HemeNeutrophils (Bld) [#/Vol]3.5 E9/LNormal2.0 - 7.5 E9/LRemisol HemeNeutrophils/100 WBC (Bld)64.6 %Qzovcw97.0 - 75.0 %Remisol HemePlatelet mean volume (Bld) [Entitic vol]6.7 fLNormal6.4 - 10.8 fLRemisol HemePlatelets (Bld) [#/Vol]332.0 E9/DZsygoc268.0 - 500.0 E9/LRemisol HemeRBC (Bld) [#/Vol]3.7 E12/L Low4.3 - 5.9 E12/LRemisol HemeWBC corrected for nucl RBC Auto (Bld) [#/Vol]5.4 E9/LNormal4.0 - 11.0 E9/LRemisol HemeInterdisciplinary Note - Case Manageron 25-25-2325Zqnkfhksdsyhcnfop Note - Case ManagerInterdisciplinary Note - Filter Assembler Patient is awake and alert in bed, previously rounded with Lima MITCHELL, Daughter at bedside. Discussed SNF recommendation and pt yuliana is agreeable and prefers SNF at [facility] and 2. [facility], referral to resource center, TP has met 3MN stay within 30 days and medically ready to DC today if accepted CRM will update once known. Medicare rights reviewed and second copy provided. . PCP verified and insurance information reviewed and DME discussed. Contact information provided and white board updated. Pt is accepted to [facility] and has met 3MN stay, will plan to DC today to room 57. Nursing, Lima MITCHELL notified. CRM contacted daughter Hebert [phone] and updated.[facility] – JacksonComment on above:Result Comment: Electronically Signed By: Jg GONZALEZ, Stacey\.chepe\Date and Time Signed: 10/18/23 12:35 EDTeGFRon 70-39-6960aSEV85 mL/min/1.73 b8Jqvwfl>=59[facility] HospitalComment on above:Order Comment: Order added by Discern Expert.Performed By: #### [id number] #### [facility] [address] [place], [place] [address]Bpgsckxprdhirkdyx Note - Case Manageron 10-17-2023 Interdisciplinary Note - Case ManagerInterdisciplinary Note - Filter Assembler Patient is awake and alert in bed, previously rounded with Lima LANE. Pt is from home, lives with daughter. Pt is on phone with her borther Tavon at this time. CRM spoke with Tavon over phone .[facility] pt is current with Alfonso SHARPE RN, PT, OT and HH aide, and aware of pending therapy evals, Pt had fall at home, and her daughter is currently in [place]. Per Tavon he spoke with pt daughter this AM and she does plan to return home today, although he is unsure of time. Medicare rights reviewd, Inpatient status reviewed, CRM following . PCP verified and insurance information reviewed and DME discussed. Contact information provided and white board updated. PT/OT do recommend SNF at this time. Pt primary nurse did talk to pt daughter Magda who was agreeable to SNF if needed CRM attempted to contact daughter Hebert [phone] no answer and VM full, unable to leave VM or contact information. Nursing updated.[facility] JacksonComment on above: Result Comment: Electronically Signed By: Jg GONZALEZ, Stacey\.chepe\Date and Time Signed: 10/17/23 13:34 EDTInterdisciplinary Note - OTon 10-17-2023 Interdisciplinary Note - OTInterdisciplinary Note - OT OT [facility] score = SNF. Patient requires CGA w/ functional transfers w/ extra time and fww. Patient requires Min A w/ LE self care d/t increased LBP since most recent fall. Pain limitsattempts at mobility and function. Inpatient OT services to follow daily to progress with adls/funct ion/activity tolerance as medical status improves.[facility] – JacksonABO/Rhon 52-80-5016WJZ/RhPositiveInvalid Interpretation CodeAvita Health System Bucyrus HospitalComment on above:Performed By: #### [id number] #### [facility] [address], [place] [address]CFP/Rh History Checkon 42-56-2708HTP/Rh History CheckVerified Hx Blood TypeNormalAvita Health System Bucyrus HospitalComment on above:Performed By: #### [id number] #### [facility] [address], [place] [address]QVTWii 50-74-0079PUWQ Gel InterpNegativeNormalAvita Health System Bucyrus HospitalComment on above:Performed By: #### [id number] #### [facility] [address], [place] [address]SVDOA BANKOrdered By: Aurea Wick on 27-26-8917VRB/Rh Interp PositiveInvalid Interpretation [facility] BB SubsectionABSC Gel InterpNegative (10/16/23 3:59 PM)NormalPARKSIDE [facility]ATR[facility] [place] BB SubsectionBMPon 76-30-4762Ctjhe gap [Moles/Vol]11 mmol/LNormal6-16[facility] HospitalComment on above:Performed By: #### [id number] #### [facility] [address], [place] [address]Yymwttn [Mass/Vol]9.4 mg/dLNormal8.9-11.1FWright-Patterson Medical CenterComment on above:Performed By: #### [id number] #### [facility] [address], [place] [address]Bstnztbo [Moles/Vol]100 mmol/YZvg437-738XvxuabAvita Health System Bucyrus HospitalComment on above:Performed By: #### [id number] #### [facility] [address], [place] [address]ZJ6 [Moles/Vol]28 mmol/WDqkhqu76-57JhiflzAvita Health System Bucyrus Hospital Comment on above:Performed By: #### [id number] #### [facility] [address], [place] [address]Knjhkaebvp [Mass/Vol]0.7 mg/dLNormal0.5-1.3FWright-Patterson Medical CenterComment on above:Performed By: #### [id number] #### [facility] [address], [place] [address]Ehkivip [Mass/Vol]101 mg/mMCrbdcj11-525AvkscgAvita Health System Bucyrus HospitalComment on above:Performed By: #### [id number] #### [facility] [address], [place] [address]Bndywlanl [Moles/Vol]3.9 mmol/LNormal3.5-5.3FWright-Patterson Medical CenterComment on above:Performed By: #### [id number] #### [facility] [address] [place] [address]Qppihv [Moles/Vol]135 mmol/SDaqjkc460-880YephhnAvita Health System Bucyrus HospitalComment on above:Performed By: #### [id number] #### [facility] [address] [place] [address]Pkpu nitrogen [Mass/Vol]19 mg/dLNormal5-21[facility] HospitalComment on above:Performed By: #### [id number] #### [facility] [address] [place] [address]Nfbn nitrogen/Creatinine [Mass ratio]27 No XxxmpZdhg54-90SezvcwAvita Health System Bucyrus HospitalComment on above:Performed By: #### [id number] #### [facility] [address] [place] [address] [id number] Bank ID#on [id number] Interpretation CodeAvita Health System Bucyrus HospitalComment on above:Performed By: #### [id number] #### [facility] [address] [place] [id number] w/ Auto Diffon [id number]/100 WBC (Bld)0.7 %Normal 0.0-2.0[facility] HospitalComment on above:Performed By: #### [id number] #### [facility] [address] [place] [address] 66016Osvddpxaf/Leukocytes Auto (Bld) [Pure # fraction]0.1 E9/LNormal 0.0-0.2FWright-Patterson Medical CenterComment on above:Performed By: #### [id number] #### [facility] [address] [place] [address] 77987Fgwhnboqlnz (Bld) [#/Vol]0.2 E9/LNormal0.0-0.5FWright-Patterson Medical CenterComment on above:Performed By: #### [id number] #### [facility] [address], [place] [address]Wgjhpsdjled/100 WBC (Bld)2.2 %Normal0.0-8.0[facility] HospitalComment on above:Performed By: #### [id number] #### [facility] [address], [place] [address]Zaohoooigqu distribution width (RBC) [Ratio]15.8 %High10.9-14.2 [facility] HospitalComment on above:Performed By: #### [id number] #### [facility] [address], [place] [address]Ydrgxxxhbc (Bld) [Volume fraction]31.9 %Low34.0-46.0[facility] HospitalComment on above:Performed By: #### [id number] #### [facility] [address] [place] [address]Pbtuwavahp (Bld) [Mass/Vol]10.8 g/dLLow12.0-16.0[facility] HospitalComment on above:Performed By: #### [id number] #### [facility] [address] [place] [address] 580[address]Xifclkvaryi (Bld) [#/Vol]1.1 E9/LNormal1.0-4.0[facility] HospitalComment on above:Performed By: #### [id number] #### [facility] [address], [place] [address]Wcuhnyfbvbe/100 WBC (Bld)14.3 %Qyayhj99.0-50.0[facility] HospitalComment on above:Performed By: #### [id number] #### [facility] [address], [place] [address]WVG (RBC) [Entitic mass]30.0 auIufdzg27.0-34.0[facility] HospitalComment on above:Performed By: #### [id number] #### [facility] [address] [place] [address]450[address]CBFW (RBC) [Mass/Vol]34.0 g/rIYzzegk90.4-36.0[facility] HospitalComment on above:Performed By: #### [id number] #### [facility] [address] [place] [address] 05734DWB (RBC) [Entitic vol]88.4 rPKmublg26.0-100.0[facility] HospitalComment on above:Performed By: #### [id number] #### [facility] [address] [place] [address]Ltpbpelyb (Bld) [#/Vol]0.7 E9/LNormal0.2-1.0[facility] HospitalComment on above:Performed By: #### [id number] #### [facility] [address] [place] [address] 545[address]Eusmjjpvqsu (Bld) [#/Vol]5.5 E9/LNormal2.0-7.5FWright-Patterson Medical CenterComment on above:Performed By: #### [id number] #### [facility] [address] [place] [address]Gneuhejeeau/100 WBC (Bld)73.7 %Hjfzlb22.0-75.0[facility] HospitalComment on above:Performed By: #### [id number] #### [facility] [address] [place] [address]Ynmrzjtu371.0 E9/FZiplzi613.0-500.0[facility] Comment on above:Performed By: #### [id number] #### [facility] [address] [place] [address] 41457Xtsutlmi mean volume (Bld) [Entitic vol]6.9 fLNormal6.4-10.8 [facility] HospitalComment on above:Performed By: #### [id number] #### [facility] [address] [place] [address]JQA (Bld) [#/Vol]3.6 E12/LLow4.3-5.9[facility] Comment on above:Performed By: #### [id number] #### [facility] [address], [place] [address]CZP corrected for nucl RBC Auto (Bld) [#/Vol]7.4 E9/LNormal 4.0-11.0[facility] HospitalComment on above:Performed By: #### [id number] #### [facility] [address], [place] [address]ZLGSMYUFOCaoznwk By: Lab Mukesh on 65-18-1222Vemypcj [Mass/Vol]86 mg/yTKcsxti10 - 99 mg/dLPARKSIDE [facility] POC SubsectionComment on above:Result Comment: Notified RN/MDPOC Device [id number] 1Invalid Interpretation Code [facility] POC SubsectionPOC User [id number] 1Invalid Interpretation CodePARKSIDE [facility] [place] POC SubsectionPOC UsernameDANDREW CORNEJO ANInvalkyle Interpretation CodePARKSIDE [facility] POC SubsectionCHEMISTRYOrdered By: SYSTEM SYSTEM on 33-10-3314Zcpaqyfujoqh Screen method >1000 ng/mL Ql (U)NEGATIVE 7 (10/16/23 5:17 PM)NormalNEGATIVERemisol ChemComment on above:Interpretive Data: Negative Cutoff: <1000 ng/mLBarbiturates Screen Ql (U)NEGATIVE 8 (10/16/23 5:17 PM)NormalNEGATIVERemisol ChemComment on above:Interpretive Data: Negative Cutoff: <200 ng/mLBenzodiazepines Ql (U)NEGATIVE 1 (10/16/23 5:17 PM)NormalNEGATIVERemisol ChemComment on above:Interpretive Data: Negative Cutoff: <200 ng/mLCannabinoids Screen Ql (U)NEGATIVE 6 (10/16/23 5:17 PM)NormalNEGATIVERemisol ChemComment on above:Interpretive Data: Negative Cutoff: <50 ng/mLCocaine Ql (U)NEGATIVE 2 (10/16/23 5:17 PM)NormalNEGATIVERemisol ChemComment on above:Interpretive Data: Negative Cutoff: <300 ng/mLOpiates Screen Ql (U)NEGATIVE 4 (10/16/23 5:17 PM)NormalNEGATIVERemisol ChemComment on above:Interpretive Data: Negative Cutoff: <300 ng/mLPhencyclidine Screen method >25 ng/mL Ql (U)NEGATIVE 5 (10/16/23 5:17 PM)NormalNEGATIVERemisol ChemComment on above:Interpretive Data: Negative Cutoff: <25 ng/mL These drug screen results are to be used for medical (i.e., treatment) purposes only. Unconfirmed drug screening results must not be used for non-medical purposes (e.g., employment testing, legal testing).U FentanylNEGATIVE 14 (10/16/23 5:17 PM)NormalNEGATIVERemisol ChemComment on above:Interpretive Data: Negative Cutoff: <5 ng/mL These drug screen results are to be used for medical (i.e., treatment) purposes only. Unconfirmed drug screening results must not be used for non-medical purposes (e.g., employment testing, legal testing).Albumin [Mass/Vol]3.6 g/dL Normal3.3 - 5.0 gm/dLRemisol ChemAlbumin/Globulin [Mass ratio]1.2 {ratio}Normal 1.1 - 2.2Remisol ChemALP [Catalytic activity/Vol]66 [iU]/lZazdvd80 - 98 Int._Unit/LRemisol ChemALT No additional P-5'-P [Catalytic activity/Vol]10 [iU]/dNormal6 - 46 Int._Unit/LRemisol ChemAnion gap [Moles/Vol]11 mmol/LNormal6 - 16 mEq/LRemisol ChemAST [Catalytic activity/Vol]14 [iU]/dNormal5 - 43 Int._Unit/LRemisol ChemBilirubin [Mass/Vol]0.5 mg/dLNormal0.0 - 1.1 mg/dLRemisol ChemBilirubin.direct [Mass/Vol]0.1 mg/dLNormal0.0 - 0.4 mg/dLRemisol Chem Bilirubin.indirect [Mass or moles/Vol]0.4 mg/dLNormal0.1 - 0.9 mg/dLRemisol Chem Calcium [Mass/Vol]9.4 mg/dLNormal8.9 - 11.1 mg/dLRemisol ChemChloride [Moles/Vol]100 mmol/RBdp624 - 111 mmol/LRemisol ChemCO2 [Moles/Vol]28 mmol/L Ihvwxj57 - 31 mmol/LRemisol ChemCreatinine [Mass/Vol]0.7 mg/dLNormal0.5 - 1.3 mg/dLRemisol JpoieJHS11 mL/min/1.73 a5Ppptkl>=59mL/min/1.73 n9Lfkimlt Chem Ethanol Lvlmg/dLNormal<=11mg/dLRemisol ChemGlobulin (S) [Mass/Vol]3.0 g/dLNormal 1.4 - 4.0 gm/dLRemisol ChemGlucose [Mass/Vol]101 mg/uXJbdlzb23 - 199 mg/dL Remisol ChemLactic Acid Lvl0.8 mmol/LNormal0.5 - 2.2 mmol/LRemisol ChemLipase [Catalytic activity/Vol]19 U/YDrgmuc25 - 58 unit/LRemisol ChemPotassium [Moles/Vol]3.9 mmol/LNormal3.5 - 5.3 mmol/LRemisol ChemProtein [Mass/Vol]6.7 g/dLNormal6.0 - 7.8 gm/dLRemisol ChemSodium [Moles/Vol]135 mmol/RFsjgec341 - 145 mmol/LRemisol ChemTroponin HS7.70 pg/mLLow10.10 - 27.10 pg/mLRemisol Chem Comment on above:Interpretive Data: The 95% CI (Confidence Interval) PPV (Positive Predictive Value) for myocardial infarction in females is 38 pg/mL, in males 51 pg/mL. The results should be used in conjunction withclinical conditions of myocardial infarction. (Access High Sensitivity Troponin I Instructions For Use, Raegan Nolan, October 2017)Urea nitrogen [Mass/Vol]19 mg/dLNormal5 - 21 mg/dLRemisol ChemUrea nitrogen/Creatinine [Mass ratio]27 mg/ewKcdg29 - 20Remisol ChemCOAGULATION Ordered By: Daina Mejias on 88-72-6758yWBJ Coag (PPP) [Time]27.8 eGwxkuj37.1 - 36.5 second(s)[facility] Auto CoagComment on above:Interpretive Data: Parameter 15 days - 4 weeks 1 - [...] the same coagulation reagent and instrumentation as [facility]. Currently there are no coagulation studies available worldwide for children to 14 days, andno normal ranges. Heparin therapeutic range (represented by Anti-Factor Xa activity of 0.2 - 0.4 U/mL) corresponds to PTT of 56.6 - 109.0 sec.INR Coag (PPP) [Relative time]1.05 {INR}Invalid Interpretation CodePARKSIDE [facility] [place] Auto CoagComment on above:Interpretive Data: INR results are specifically intended to assess patients stabilized on long-term Anticoagulation therapy suggested INR s Less Intensive Anticoagulation 2.0 3.0 Conventional Range 3.0 4.5PT Coag (PPP) [Time]11.8 sNormal9.4 - 12.5 second(s) [facility] Auto CoagComment on above:Interpretive Data: 15 days - 4 weeks 1 - [...] the same coagulation reagent and instrumentation as [facility]. Currently there are no coagulation studies available worldwide for children to 14 days, andno normal ranges.CT Abdomen/Pelvis w/ Contraston [id number] Abdomen/Pelvis w/ ContrastExam Date/Time: 10/16/2023 16:47 EDT Reason for Exam: ABDOMINAL TRAUMA;Trauma Report Refer to concurrent CT chest dictation. All CT scans at this facility use dose modulation, iterative reconstruction, and/or weight based dosing when appropriate to reduce radiation dose to as low as reasonably achievable. Ordering Provider: Evert Perkins FINAL REPORT Dictated: 10/16/2023 5:22 pm Villa Dewey MD Signed (Electronic Signature): 10/16/2023 5:22 pm Signed by: Villa Dewey MD Transcribed by: BRENDA Technologist: DALIA Technical Comments GFR (mL/min/1/73m2) na - trauma Contrast: Isovue 300 Contrast amount in ml's: 130 Rectal Contrast Given? NoNormalFisher [facility]inai Hospital Of BaltimoreCT Chest w/ Contraston [id number] Chest w/ ContrastExam Date/Time: 10/16/2023 16:47 EDT Reason for Exam: CHEST TRAUMA, MOD-SEVERE;Trauma Report IMPRESSION: Fracture of T12, similar to prior. Small right and trace left pleural effusions. Improvement of the right middle lobe opacity. Small volume pelvic free fluid. Other findings as discussed. EXAMINATION: CT chest w contrast. CT abdomen/pelvis w contrast. Reconstructions of the thoracic and lumbar spine. HISTORY: Trauma, CHEST TRAUMA, MOD-SEVERE abdominal trauma. Lower back pain. Recent fall. History of another fall recently. TECHNIQUE: Spiral CT acquisition of the chest from the thoracic inlet to the upper abdomen. CT of the abdomen and pelvis was performed using standard technique, scanning from just above the dome of the diaphragm to the symphysis pubis. Including delayed images through the kidneys. Included dedicated spine reconstructions of the thoracic and lumbar spine. Unless otherwise stated, incidental findings identified in this report do not require routine follow-up imaging. All CT scans at this facility use dose modulation, iterative reconstruction, and/or weight based dosing when appropriate to reduce radiation dose to as low as reasonably achievable. COMPARISON: 10/08/2023. RESULT: CHEST: Lung parenchyma and pleura: Central airways grossly patent. Small right and trace left pleural effusions with associated atelectasis. Improvement of the right middle lobe opacity compared to prior. 8 mm nodule within the right lung anteriorly, appears new from prior, and likely infectious/inflammatory in etiology. No pneumothorax. Thoracic inlet, heart, and mediastinum: Thyroid unchanged. No axillary, mediastinal, or hilar lymphadenopathy. Moderate thoracic aorta atherosclerotic calcifications without aneurysm. Stable pulmonary artery size. Stable heart size. Diffuse coronary calcifications and/or stents. No pericardial effusion or thickening. Esophagus Report nondilated. Bones: No acute osseous findings involving the ribs, sternum, or visualized shoulders. See below for spine findings. 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 Underlying decreased bone mineral density. Soft tissues: Unremarkable. ABDOMEN/PELVIS: Liver: No lesion or traumatic injury. Small benign cyst. Biliary: Gallbladder unremarkable. No biliary ductal dilation. Pancreas: No peripancreatic stranding/edema. No pancreatic duct dilation. Spleen: Coarse calcifications, unchanged. Adrenals: No mass. Kidneys: No calculus or hydronephrosis. Low-attenuation bilateral simple appearing renal cysts. Delayed phase imaging with normal excreted contrast in the renal collecting system, ureters, and bladder. GI tract: No evidence for traumatic injury. Diverticulosis without diverticulitis. Lymph nodes: No abdominal or pelvic lymphadenopathy. Mesentery/Peritoneum/Retroperitoneum: No ascites. No retroperitoneal hematoma. Vasculature: No evidence for traumatic injury. Fused faster calcifications without aneurysm. Pelvis: Small volume pelvic free fluid. Uterine calcifications. Bladder partially decompressed. Bones: No acute osseous findings involving the bony pelvis or hips. See below for lumbar findings. Soft Tissues: No soft tissue hematoma. THORACIC SPINE: Counting reference: For the purposes of this report, L5-S1 is considered the last well-formed disc space. Alignment: Alignment unchanged. Bone marrow / fracture: Fracture involving T12, similar to 10/08/2023. No distinct new fractures within limits of underlying decreased bone mineral density. Canal and foramina: Multilevel degenerative changes, similar to prior. LUMBAR SPINE: Alignment: Alignment unchanged Bone marrow /fracture: No evidence for acute fracture. No destructive osseous process. Canal and foramina: Multilevel degenerative changes, similar to prior. Report Ordering Provider: Evert Perkins FINAL REPORT Dictated: 10/16/2023 5:21 pm Villa Dewey MD Signed (Electronic Signature): 10/16/2023 5:21 pm Signed by: Villa Dewey MD Transcribed by: BRENDA Technologist: DALIA Technical Comments GFR (mL/min/1/73m2) na - trauma Contrast: Isovue 300 Contrast amount in ml's: 130NormalAvita Health System Bucyrus HospitalCT Head or Brain w/o Contraston [id number] Head or Brain w/o ContrastExam Date/Time: 10/16/2023 16:46 EDT Reason for Exam: HEAD TRAUMA, MOD-SEVERE;Other (please specify) Report IMPRESSION: CHRONIC FINDINGS. NO EVIDENCE OF ACUTE/RECENT INTRACRANIAL HEMORRHAGE. CLINICAL HISTORY: HEAD TRAUMA, MOD-SEVERE. Patient fell. COMPARISON: 10/08/2023. COMMENT: Unenhanced images were obtained. The lateral ventricles, sylvian fissures, and cortical sulci bilaterally are dilated. There is no mass effect nor midline shift. There are relatively extensive chronic ill-defined areas of mildly decreased attenuation involving cerebral white matter bilaterally, that are nonspecific, but with small vessel ischemic changes suspected. There is no evidence of acute/recent intracranial hemorrhage nor extra-axial hematoma. No mass lesion is evident. No skull fracture is noted. There is a posterior left frontal katty hole and an anterior left parietal katty hole. There are calcification of distal internal carotid arteries and minimally of the distal vertebral arteries. There are metallic surgical densities associated with the bony floor of the left temporal fossa. There has been no significant change when compared to the prior exam. All CT scans at this facility use dose modulation, iterative reconstruction, and/or weight based dosing when appropriate to reduce radiation dose to as low as reasonably achievable. Ordering Provider: Evert Perkins FINAL REPORT Dictated: 10/16/2023 4:57 pm Joseph Jain M.D. Signed (Electronic Signature): 10/16/2023 4:57 pm Signed by: Joseph Jain M.D. Transcribed by: BRENDA Technologist: RRBNormalAvita Health System Bucyrus HospitalCT Spine Cervical w/o Contraston [id number] Spine Cervical w/o ContrastExam Date/Time: 10/16/2023 16:46 EDT Reason for Exam: NECK TRAUMA, DANGEROUS INJURY MECHANISM;Trauma Report IMPRESSION: CERVICAL SPONDYLOSIS. NO EVIDENCE OF CERVICAL SPINE FRACTURE. CLINICAL HISTORY: Trauma, NECK TRAUMA, DANGEROUS INJURY MECHANISM. COMPARISON: 10/08/2023. COMMENT: Unenhanced images were obtained. There are hypertrophic degenerative arthritic changes at the atlantoodontoid articulation. There is narrowing of interspaces from C3-C4 through C6-C7 and there are marginal hypertrophic spurs of vertebral bodies from C7 through T1. There is hypertrophic spurring of uncinate processes at C3-C4 (mildly bilaterally), C4-C5 (left greater than right), C5-C6 bilaterally, and C6-C7 bilaterally. There are hypertrophic arthritic changes of some of the cervical facet joints. There is multilevel neural foraminal encroachment. The cervical vertebral bodies are maintained in height. No fracture is noted. There is mild retrolisthesis at C6-C7. Evaluation of cervical intervertebral discs is limited, but there are anterior extradural defects at C4-C5, C5-C6, and C6-C7, at least in part due to posterior hypertrophic spurring of vertebral bodies. There is no prevertebral retropharyngeal soft tissue swelling. There are calcifications at the carotid bifurcations. There has been no significant change when compared to the prior exam. All CT scans at this facility use dose modulation, iterative reconstruction, and/or weight based dosing when appropriate to reduce radiation dose to as low as reasonably achievable. Ordering Provider: Evert Perkins FINAL REPORT Dictated: 10/16/2023 5:06 pm Joseph Jain M.D. Signed (Electronic Signature): 10/16/2023 5:06 pm Signed by: Joseph Jain M.D. Transcribed by: BRENDA Technologist: RRBNormalAvita Health System Bucyrus HospitalCapillary Glucose POCon 01-55-2077Dukstyc [Mass/Vol]86 mg/xYSrhvci64-77LbhrskAvita Health System Bucyrus HospitalComment on above:Result Comment: Notified RN/JUDEerformed By: #### [id number] #### [facility] [address], [place] [address]Mwttvb Queryon [id number] QueryCoding Query From: Jolene Patel RN To: Barrett Bales DO; Cc: Isaura Henson; Sent: 10/16/2023 07:50:14 EDT ! Subject: Coding Query Due Date/Time: 10/17/2023 07:50:00 EDT Caller Name: CARLY MARCELINO; Caller Number: H Documentation per a mental health consultant in the medical record indicates this patient has been diagnosed as having: Acute hypoxemic respiratory failure The following is also documented in the medical record: 10/05 progress note-Reason for Consultation Acute hypoxemic respiratory failure While in the ED, thept was found to be hypoxemic on RA and febrile. VS 10/02 2044 SPO2 88% room air placed on 2Lnc ED note-Resp: Normal breath sounds, no wheeze or crackles; No chest wall tenderness, crepitus, or subcutaneous emphysema; No visible evidence of chest wall trauma; Chest rise symmetric; No respiratory distress H&P-Respiratory: Upper airway rhonchi but lungs are clear to auscultation bilaterally, no wheezes, no rhonchi, no rales but patient does not take deep breaths. 10/03 progress note-Respiratory: no shortness of breath, no cough, no orthopnea, no wheezing Chest/lungs: Diminished but clear to auscultation bilaterally no wheezes or rhonchi noted bilaterally 10/04 progress note-Respiratory: no shortness of breath, no cough, no orthopnea, no wheezing Chest/lungs: Diminished but clear to auscultation bilaterally no wheezes or rhonchi noted bilaterally dc summary-Chest/lungs: Diminished but clear to auscultation bilaterally no wheezes or rhonchi noted bilaterally Based on your medical judgment of the documented diagnoses by the mental health consultant, do you agree with thediagnosis? [___]Yes, I agree with the diagnosis documented by the mental health consultant. [___]No, I do not agree with the diagnosis documented by the mental health consultant. Reason: [___]Other (please specify): In responding to this request, please exercise your independent professional judgement. The fact that a question is asked does not imply that any particular answer is desired or expected. Thank you! Jolene [phone] From: Barrett Bales DO To: Amanda GONZALEZ, Jolene; Sent: 10/16/2023 16:37:52 EDT Subject: RE: Coding Query Caller Name: CARLY MARCELINO; Caller Number: H Yes, I agree with the diagnosis documented by the mental health consultant.[facility] JacksonCoding QueryCoding Query From: Jolene Patel RN To: Barrett Bales DO; Cc: Isaura Henson; Sent: 10/16/2023 07:40:04 EDT ! Subject: Coding Query Due Date/Time: 10/17/2023 07:39:00 EDT Caller Name: CARLY MARCELINO; Caller Number: H Documentation in the medical record indicates this patient has been admitted with or diagnosed as having: Acute metabolic encephalopathy The following is also documented in the medical record: 10/04 progress note-She was also noted to have acute metabolic encephalopathy although this morning she is alert and oriented and very lucid. 2. Altered mental status (R41.82: Altered mental status, unspecified) May be secondary to pneumonia versus recent subdural hematoma She is back to her baseline Workup negative except for the pneumonia Throughout the course of the admission, documentation of this diagnosis has discontinued. Based on your medical judgment, please clarify the diagnosis and document any applicable treatment plan. The diagnosis: [___]Has been resolved [___]Has been ruled out [___]Other (please specify): In responding to this request, please exercise your independent professional judgement. The fact that a question is asked does not imply that any particular answer is desired or expected. Thank you! Jolene [phone] From: Barrett Bales DO To: Jolene Patel RN; Sent: 10/16/2023 16:36:50 EDT Subject: RE: Coding Query Caller Name: CARLY MARCELINO; Caller Number: H Has been resolvedNoTriHealth Clinical Summaryon [id number] Clinical SummaryED Clinical Summary [address] [address] ED Clinical Summary Person Information Name: CARLY MARCELINO [place] Age: 83 Years : 1940 Sex: Female Language: Haitian PCP: HARDEEP MCKENZIE DO Marital Status: Phone: [phone] Visit Id: Visit Reason: Fall; Back pain; FALL Speciality: Acuity: 2 Enc Type: Inpatient Med Service: Medical Arrival: 10/16/2023 15:47:05 Discharge: LOS: 000 06:13 Checkin: 10/16/2023 15:47:05 Checkout: 10/16/2023 22:00:58 Dispo Type: Admitted as IP to this [facility] EVENTS: Event Name Event Status Request Date/Time Start Date/Time Complete Date/Time Arrive Complete 10/16/2023 15:47:05 10/16/2023 15:47:05 10/16/2023 15:47:05 Document Home Meds Request 10/16/2023 15:47:05 Triage Complete 10/16/2023 15:47:05 10/16/2023 15:59:57 10/16/2023 15:59:57 Bed Assign Complete 10/16/2023 15:48:25 10/16/2023 15:48:25 10/16/2023 15:48:25 Dr Exam Complete 10/16/2023 15:48:25 10/16/2023 15:50:04 10/16/2023 15:50:04 RN Exam Complete 10/16/2023 15:48:25 10/16/2023 16:04:56 10/16/2023 16:04:56 Registration Complete 10/16/2023 15:50:04 10/16/2023 16:21:23 10/16/2023 16:21:23 Dr Exam Complete 10/16/2023 15:50:22 10/16/2023 15:50:22 10/16/2023 15:50:22 Dr Exam Complete 10/16/2023 15:50:39 10/16/2023 15:50:39 10/16/2023 15:50:39 Consult Request 10/16/2023 15:51:41 EKG Complete 10/16/2023 15:51:41 10/16/2023 16:06:58 Pending Labs Complete 10/16/2023 15:51:41 10/16/2023 18:56:01 Lab Complete 10/16/2023 15:51:41 10/16/2023 18:56:01 Urine Collect Complete 10/16/2023 15:51:41 10/16/2023 18:56:01 RT Request 10/16/2023 15:51:41 Patient Care Request 10/16/2023 15:51:41 CT Complete 10/16/2023 15:51:41 10/16/2023 16:15:54 10/16/2023 16:47:13 Blood Collect Request 10/16/2023 15:51:41 30 Day Return Request 10/16/2023 15:59:57 Fall Risk Request 10/16/2023 16:04:56 Pending Labs Complete 10/16/2023 16:05:29 10/16/2023 17:28:08 Pending Labs Complete 10/16/2023 16:09:30 10/16/2023 16:09:30 10/16/2023 16:38:38 Lab Complete 10/16/2023 16:09:30 10/16/2023 16:09:30 10/16/2023 16:38:38 Pending Labs Complete 10/16/2023 16:11:41 10/16/2023 16:11:41 10/16/2023 16:37:59 Lab Complete 10/16/2023 16:11:41 10/16/2023 16:11:41 10/16/2023 16:37:59 Trauma II Request 10/16/2023 16:19:46 30 Day Return Request 10/16/2023 16:19:46 Reg Complete Request 10/16/2023 16:21:23 Reg Bed Request Complete 10/16/2023 16:21:23 10/16/2023 16:21:23 10/16/2023 16:21:23 Meds Admin Complete 10/16/2023 18:04:11 10/16/2023 18:14:05 Discharge Request 10/16/2023 18:09:04 Consult Request 10/16/2023 18:58:44 Hospitalist Consult Request 10/16/2023 18:58:44 Bed Request Request 10/16/2023 19:44:25 Reg Bed Request Complete 10/16/2023 19:44:25 10/16/2023 19:48:16 10/16/2023 19:48:16 Admit Request 10/16/2023 19:44:25 Patient Care Request 10/16/2023 19:48:16 Patient Care Request 10/16/2023 19:48:16 Patient Care Request 10/16/2023 19:48:17 Patient Care Request 10/16/2023 19:48:17 Medicare Form Complete 10/16/2023 19:48:17 10/16/2023 21:03:07 Patient Care Request 10/16/2023 19:48:18 Patient Care Request 10/16/2023 19:48:18 Pending Labs Complete 10/16/2023 19:51:09 10/16/2023 19:51:09 10/16/2023 19:51:10 ADDRESS: [address] [place] [id number] PHYS DOC NOTES: MEDICAL INFORMATION: Prescriptions Given: [...] Mouth every day as needed Allergy symptoms. docusate (docusate sodium 100 mg Cap) 1 Capsules By Mouth 2 times a day. TAKE 1 CAPSULE BY MOUTH TWICE DAILY. famotidine (famotidine 40 mg Tab) 1 Tablets [...] 0. levetiracetam (Keppra) 500 Milligram at bedtime. lisinopril (lisinopril 20 mg Tab) 1 Tablets By Mouth every day. lorazepam (LORazepam 0.5 mg Tab) 1 Tablets By Mouth 3 times a day. losartan (losartan 50 mg Tab) 1 Tablets By Mouth every day. Refills: 0. magnesium oxide (magnesium oxide 400 mg Tab) 1 Tablets By Mouth at bedtime. metoprolol (Metoprolol tartrate 25 mg Tab) 0.5 Tablets By Mouth 2 times a day. Refills: 0. montelukast (montelukast 10 mg Tab) 1 Tablets By Mouth every day. multivitamin with minerals (Multivitamins and Minerals oral tablet) pravastatin (pravastatin 40 mg Tab) 1 Tablets By Mouth every day. at bedtime. PATIENT EDUCATION INFORMATION: Instructions: Fall Prevention in (more content not included)...[facility] Patient Summaryon [id number] Patient SummaryED Patient Summary [address] [address] Patient Discharge Instructions Person Information Name: CARLY MARCELINO Age: 83 Years Arrival Date: 10/16/2023 15:47:05 Discharge Diagnosis: Back pain; Fall Primary Care Physician: HARDEEP MCKENZIE DO Provider Information Primary Provider: Hank Beard DO Advanced Ecotherapist:Evert Perkins PA-C The exam and treatment you received in the Emergency Department were for an urgent problem and are not intended as complete care. It is important that you follow up with a doctor, nurse practitioner,or physician?s workforce development assistant for ongoing care. If your symptoms become worse or you do not improve as expected and you are unable to reach your usual health care provider, you should return to the Emergency Department. We are available 24 hours a day. CHARICARLY has been given the following list of patient education materials, prescriptions and follow-up instructions: Follow-up Instructions: With: Address: When: HARDEEP SILVA, [facility] [address] [place] [address] Business (1) In 3 days 10/19/2023 In the event that this physician does not participate in your insurance network, please consult with your insurance company to find a nearby participating provider. Patient Education Materials: Fall Prevention in the Home, Adult A MESSAGE TO ALL PATIENTS REGARDING OPIOIDS PRESCRIPTION OPIOIDS: WHAT YOU NEED TO KNOW Prescription opioids can be used to help relieve veldudny-zm-hlupaq pain and are often prescribed following a [...] and have fewer risks and side effects. Optionsmay include: ? Pain relievers such as acetaminophen, [...] unused prescription opioids: Find your community drug take- back program or [employer] mail-back program, or flush them down the toilet, following guidance from the Food and Drug Administration (www.fda.gov/Drugs/ResourcesForYou). ? Visit www.cdc.gov/drugoverdose to learn about the risks of opioids abuse and overdose. ? If you believe you may be struggling with addiction, tell your health neonatal intensive care nurse and ask for guidance or call [facility] National Helpline at 2-076-372-DQTY. (more content not included)...NormalAvita Health System Bucyrus HospitalEthanolon 23-06-2295Ffatxsg Lvl<10Normal<=11[facility] HospitalComment on above: Performed By: #### [id number] #### [facility] [address] [place] [address] 13762XZUGYBFWUKGdxsbui By: SYSTEM SYSTEM on 96-15-6115Ovhwvvmau/100 WBC (Bld)0.7 %Normal0.0 - 2.0 %Remisol HemeBasophils/Leukocytes Auto (Bld) [Pure # fraction]0.1 E9/LNormal0.0 - 0.2 E9/LRemisol HemeEosinophils (Bld) [#/Vol]0.2 E9/LNormal0.0 - 0.5 E9/LRemisol HemeEosinophils/100 WBC (Bld)2.2 %Normal0.0 - 8.0 %Remisol HemeErythrocyte distribution width (RBC) [Ratio]15.8 %High10.9 - 14.2 %Remisol HemeHematocrit (Bld) [Volume fraction]31.9 %Low34.0 - 46.0 % Remisol HemeHemoglobin (Bld) [Mass/Vol]10.8 g/dLLow12.0 - 16.0 gm/dLRemisol Heme Lymphocytes (Bld) [#/Vol]1.1 E9/LNormal1.0 - 4.0 E9/LRemisol HemeLymphocytes/100 WBC (Bld)14.3 %Tffzvk48.0 - 50.0 %Remisol HemeMCH (RBC) [Entitic mass]30.0 pg Gtzdry68.0 - 34.0 pgRemisol HemeMCHC (RBC) [Mass/Vol]34.0 g/mFOmhbek13.4 - 36.0 gm/dLRemisol HemeMCV (RBC) [Entitic vol]88.4 uKDstccd55.0 - 100.0 fLRemisol Heme Monocytes (Bld) [#/Vol]0.7 E9/LNormal0.2 - 1.0 E9/LRemisol HemeMonocytes/100 WBC (Bld)9.1 %Normal4.0 - 14.0 %Remisol HemeNeutrophils (Bld) [#/Vol]5.5 E9/LNormal 2.0 - 7.5 E9/LRemisol HemeNeutrophils/100 WBC (Bld)73.7 %Qzludq50.0 - 75.0 % Remisol BlseIaweivmd460.0 E9/AHszjmj093.0 - 500.0 E9/LRemisol HemePlatelet mean volume (Bld) [Entitic vol]6.9 fLNormal6.4 - 10.8 fLRemisol HemeRBC (Bld) [#/Vol] 3.6 E12/LLow4.3 - 5.9 E12/LRemisol HemeWBC corrected for nucl RBC Auto (Bld) [#/Vol]7.4 E9/LNormal4.0 - 11.0 E9/LRemisol HemeHep Func Panelon 10-16-2023 Albumin/Globulin (S) [Mass conc ratio]1.2Qhajto6.1-2.2[facility] BaltimoreComment on above:Performed By: #### [id number] #### [facility] [address] [place] [address] 24397Vzrbvjxa (S) [Mass/Vol]3.0 g/dLNormal1.4-4.0[facility] HospitalComment on above:Performed By: #### [id number] #### [facility] [address], [place] [address]Khnuwrz [Mass/Vol]6.7 g/dLNormal6.0-7.8[facility] HospitalComment on above:Performed By: #### [id number] #### [facility] [address] [place] [address] 25924Uzexjwx [Mass/Vol]3.6 g/dLNormal3.3-5.0[facility] HospitalComment on above:Performed By: #### [id number] #### [facility] [address] [place] [address] 13590FHS [Catalytic activity/Vol]66 Int._Unit/DJbwwlc01-83ItipejAvita Health System Bucyrus HospitalComment on above:Performed By: #### [id number] #### [facility] [address] [place] [address] 13362LLQ No additional P-5'-P [Catalytic activity/Vol]10 Int._Unit/L Normal6-46[facility] HospitalComment on above:Performed By: #### [id number] #### [facility] [address] [place] [address] 61851FHF [Catalytic activity/Vol]14 Int._Unit/LNormal5-43[facility] HospitalComment on above:Performed By: #### [id number] #### [facility] [address], [place] [address]Hajdhcbwg [Mass/Vol]0.5 mg/dLNormal0.0-1.1FWright-Patterson Medical CenterComment on above:Performed By: #### [id number] #### [facility] [address] [place] [address] 332[address]Fnsftssjt.direct [Mass/Vol]0.1 mg/dLNormal0.0-0.4[facility] BaltimoreComment on above:Performed By: #### [id number] #### [facility] [address], [place] [address]Veyqobysb.indirect [Mass or moles/Vol]0.4 mg/dLNormal0.1-0.9 [facility] HospitalComment on above:Performed By: #### [id number] #### [facility] [address], [place] [address]Ezpbvq Acidon 18-86-2325Fsvams Acid Lvl0.8 mmol/LNormal0.5-2.2 [facility] HospitalComment on above:Performed By: #### [id number] #### [facility] [address], [place] [address]Rlpuin Levelon 51-25-4109Rbsjzw [Catalytic activity/Vol]19 U/L Wvrykh58-09YgzndkAvita Health System Bucyrus HospitalComment on above:Performed By: #### [id number] #### [facility] [address], [place] [address]WO & PTTon 78-66-6058kRJC Coag (PPP) [Time]27.8 second(s)Normal 25.1-36.5FWright-Patterson Medical CenterComment on above:Result Comment: Parameter 15 days - 4 weeks 1 - [...] the same coagulation reagent and instrumentation as [facility]. Currently there are no coagulation studies available worldwide for children to 14 days, andno normal ranges. Heparin therapeutic range (represented by Anti-Factor Xa activity of 0.2 - 0.4 U/mL) corresponds to PTT of 56.6 - 109.0 sec.Performed By: #### [id number] #### [facility] [address], [place] [address]NSF Coag (PPP) [Relative time]1.05 {INR}Invalid Interpretation CodeAvita Health System Bucyrus HospitalComment on above:Result Comment: INR results are specifically intended to assess patients stabilized on long-term Anticoagulation therapy suggested INR?s ?Less Intensive Anticoagulation? 2.0 ? 3.0 Conventional Range 3.0 ? 4.5Performed By: #### [id number] #### [facility] [address], [place] [address]ST Coag (PPP) [Time]11.8 second(s)Normal9.4-12.5[facility] Hospital Of BaltimoreComment on above:Result Comment: 15 days - 4 weeks 1 - [...] the same coagulation reagent and instrumentation as [facility]. Currently there are no coagulation studies available worldwide for children to 14 days, andno normal ranges.Performed By: #### [id number] #### [facility] [address], [place] [address]Tpwgyhfsnm 30-67-9488Ngmcqbvv HS7.70 pg/mLLow10.10-27.10[facility] HospitalComment on above:Result Comment: The 95% CI (Confidence Interval) PPV (Positive Predictive Value) for myocardial infarction in females is 38 pg/mL, in males 51 pg/mL. The results should be used in conjunction with clinical conditions of myocardial infarction. (Access High Sensitivity Troponin I Instructions For Use, Raegan Nolan, October 2017)Performed By: #### [id number] #### [facility] [address], [place] [address]N Drug Screenon 23-67-6713Uezexplldsujdgt Ql (U)NegativeNormal NEGATIVEAvita Health System Bucyrus HospitalComment on above:Result Comment: Negative Cutoff: <200 ng/mLPerformed By: #### [id number] #### [facility] [address] [place] [address]Cnsciplvrkrz Screen method >1000 ng/mL Ql (U)NegativeNormal NEGATIVEAvita Health System Bucyrus HospitalComment on above:Result Comment: Negative Cutoff: <1000 ng/mLPerformed By: #### [id number] #### [facility] [address] [place] [address] 29[address]Lcgqdknsbtpv Screen Ql (U)NegativeNormalNEGATIVEAvita Health System Bucyrus HospitalComment on above:Result Comment: Negative Cutoff: <200 ng/mL Performed By: #### [id number] #### [facility] [address] [place] [address] 714[address]Yfqkclfciylx Screen Ql (U)NegativeNormalNEGATIVEAvita Health System Bucyrus HospitalComment on above:Result Comment: Negative Cutoff: <50 ng/mL Performed By: #### [id number] #### [facility] [address] [place] [address] 98[address]Akrmopv Ql (U)[facility] SouthparkNormalNEGWayne Hospital Comment on above:Result Comment: Negative Cutoff: <300 ng/mLPerformed By: #### [id number] #### [facility] [address], [place] [address]Afojivr Screen Ql (U)NegativeNormalNEGATIVEAvita Health System Bucyrus HospitalComment on above:Result Comment: Negative Cutoff: <300 ng/mLPerformed By: #### [id number] #### [facility] [address] [place] [address]50[address]Gaxqnvvtqgnfo Screen method >25 ng/mL Ql (U)NegativeNormal NEGATIVEAvita Health System Bucyrus HospitalComment on above:Result Comment: Negative Cutoff: <25 ng/mL These drug screen results are to be used for medical (i.e., treatment) purposes only. Unconfirmed drug screening results must not be used for non-medical purposes (e.g., employment testing, legal testing).Performed By: #### [id number] #### [facility] [address] [place] [address]H FentanylNegativeNormalNEGATIVEAvita Health System Bucyrus Hospital Comment on above:Result Comment: Negative Cutoff: <5 ng/mL These drug screen results are to be used for medical (i.e., treatment) purposes only. Unconfirmed drug screening results must not be used for non-medical purposes (e.g., employment testing, legal testing).Performed By: #### [id number] #### [facility] [address] [place] [address] 12[address]WQ with Cult Rflxon 03-89-2712Wnpvaidch Ql (U)NegativeNormal NegativeAvita Health System Bucyrus HospitalComment on above:Performed By: #### [id number] #### [facility] [address] [place] [address]38[address]Ykutzjk (U)ClearNormalClearAvita Health System Bucyrus HospitalComment on above:Performed By: #### [id number] #### [facility] [address] [place] [address]Eumna (U)ColorlessAbnormalYellowAvita Health System Bucyrus Hospital Comment on above:Result Comment: Microscopic readings are only performed on those samples that meet specific criteria set forth by [facility].Performed By: #### [id number] #### [facility] [address] [place] [address] 92847Zcjarqo Ql (U)NegativeNormalNegativeAvita Health System [facility] Hospital Comment on above:Performed By: #### [id number] #### [facility] [address] [place] [address] 496[address]Okiqmuznjo Auto test strip (U) [Mass/Vol]NegativeNormalNegative [facility] HospitalComment on above:Performed By: #### [id number] #### [facility] [address] [place] [address] 158[address]Mwfagsx Auto test strip Ql (U)NegativeNormalNegativeAvita Health System Bucyrus HospitalComment on above:Performed By: #### [id number] #### [facility] [address] [place] [address] 00308Ggfuyqmsa esterase Auto test strip Ql (U)NegativeNormalNegative [facility] HospitalComment on above:Performed By: #### [id number] #### [facility] [address] [place] [address] 30316Dqlcgve Auto test strip Ql (U)NegativeNormalNegativeAvita Health System Bucyrus HospitalComment on above:Performed By: #### [id number] #### [facility] [address] [place] [address] 37769wW (U)7.0 [pH]Invalid Interpretation Code5.0-9.0[facility] HospitalComment on above:Performed By: #### [id number] #### [facility] [address] [place] [address] 06379Htctmqw Ql (U)NegativeNormalNegCleveland Clinic Union Hospital Comment on above:Performed By: #### [id number] #### [facility] [address] [place] [address] 20894Mbgpylod gravity (U) [Rel density]1.015Invalid Interpretation Code1.005-1.030[facility] HospitalComment on above:Performed By: #### [id number] #### [facility] [address] [place] [address] 385[address]Wuqctwmwbcxs (U) [Mass/Vol]NegativeNormalNegCleveland Clinic Union HospitalComment on above:Performed By: #### [id number] #### [facility] [address] [place] [address] 38[address]Yggj of Urine collection methodClean CatchNoBerger HospitalComment on above:Performed By: #### [id number] #### [facility] [address] [place] [address] 22847QADIIXXRUKTwhpfes By: SYSTEM SYSTEM on 24-35-3452Atinmdnnf Ql (U)NegativeNormalNegativemg/dLFT UA Auto SSClarity (U)Clear (10/16/23 5:17 PM)NormalClearFTM UA Auto SSColor (U)Colorless 3 *ABN* (10/16/23 5:17 PM)Invalid Interpretation CodeYellowFT UA Auto SSComment on above:Interpretive Data: Microscopic readings are only performed on those samples that meet specific criteria set forth by [facility].Glucose Ql (U)NegativeNormalNegativemg/dLFT UA Auto SSHemoglobin Auto test strip (U) [Mass/Vol]NegativeNormalNegativemg/dLFT UA Auto SSKetones Auto test strip Ql (U)NegativeNormalNegativemg/dLFT UA Auto SSLeukocyte esterase Auto test strip Ql (U)NegativeNormalNegativeLeu/uLFT UA Auto SS Nitrite Auto test strip Ql (U)NegativeNormalNegativemg/dLFT UA Auto SSpH (U) 7.0 *NA* (10/16/23 5:17 PM)Invalid Interpretation Code5.0 - 9.0FT UA Auto SSProtein Ql (U)NegativeNormalNegativemg/dLFT UA Auto SSSpecific gravity (U) [Rel density] 1.015 *NA* (10/16/23 5:17 PM)Invalid Interpretation Code1.005 - 1.030FT UA Auto SS Urobilinogen (U) [Mass/Vol]NegativeNormalNegativemg/dLPARKSIDE PS[facility] UA Auto SSURINALYSIS Ordered By: Evert Perkins on 44-09-8411ZU Spec DescClean Catch (10/16/23 5:17 PM)NormalPARKSIDE PSYCHIATRIC [facility] UA Auto SS eGFRon 85-44-9255nNIB93 mL/min/1.73 c7Gkdpjr>=59PrateekKennedy Krieger InstituteComment on above:Order Comment: Order added by Discern Expert.Performed By: #### [id number] #### [facility] [address], [place] [address]Suzcpl Queryon 63-50-9097Wlgcxw QueryCoding Query From: Jolene Patel RN To: Barrett Bales DO; Cc: Isaura Henson; Sent: 10/10/2023 08:01:54 EDT ! Subject: Coding Query Due Date/Time: 10/15/2023 08:01:00 EDT Caller Name: CARLY MARCELINO; Caller Number: H Documentation per a mental health consultant in the medical record indicates this patient has been diagnosed as having: chronic HFpEF The following is also documented in the medical record: 10/05 pulm consult-History of Present Illness Pt is an 83y F with past medical history significant for asthma (no PFTs on file), CAD, chronic HFpEF, HLD, and HTN who presented to the ED on 10/02 with complaints of a witnessed fall at home. 10/04 progress note-Comorbidities include history of asthma, CAD with PCI, anxiety, diastolic dysfunction, chronic anemia, GERD, hyperlipidemia, hypertension, mild pulmonary hypertension and seizure disorder with history of subdural hematoma. Home meds-Spironolactone 07/10/2023 progress note-3. Chronic diastolic heart failure (I50.32: Chronic diastolic (congestive) heart failure) Echo 11/24/21: Normal LV function, Stage 1 diastolic dysfunction, mild PAH Not decompensated Based on your medical judgment of the documented diagnoses by the mental health consultant, do you agree with thediagnosis? [___]Yes, I agree with the diagnosis documented by the mental health consultant. [___]No, I do not agree with the diagnosis documented by the mental health consultant. Reason: [___]Other: In responding to this request, please exercise your independent professional judgement. The fact that a question is asked does not imply that any particular answer is desired or expected. Thank you! Jolene [phone] From: Barrett Bales DO To: Jolene Patel RN; Sent: 10/15/2023 07:47:34 EDT Subject: RE: Coding Query Caller Name: CARLY MARCELINO; Caller Number: H Yes, I agree with the diagnosis documented by the mental health consultant.[facility] JacksonCoding QueryCoding Query From: Amanda GONZALEZ, Jolene To: Barrett Bales DO; Cc: Isaura Henson; Sent: 10/10/2023 08:20:02 EDT ! Subject: Coding Query Due Date/Time: 10/15/2023 08:19:00 EDT Caller Name: CARLY MARCELINO; Caller Number: Erich Documentation in the medical record indicates this patient has been admitted with or diagnosed withPneumonia. Additional documentation is needed to identify the type of the pneumonia. The following is also documented in the medical record: DC summary-On the medical service patient was admitted for right middle lobe pneumonia and was placed on vancomycin and Zosyn. We did a MRSA screen and Pro- Demetria level that came back elevated at 0.14. We maintain her meds from home and cultures were done. Patient's hospital course was uncomplicated. Her cultures are still negative and the MRSA screen is positive. She was anxious for discharge todaybut she did want pulmonology to see her prior to being discharged. Pulmonology saw the patient and recommended a dose of IV doxycycline and then 8 more days of oral Doxy to cover the presumptive MRSAand then switch her to oral antibiotics. 10/04 progress note-1. Pneumonia (J18.9: Pneumonia, unspecified organism) Right middle lobe; recent hospitalizations Suspect gram-negative organisms Day 3 IV Zosyn Nasal MRSA swab negative so we will discontinue vancomycin Blood cultures and sputum culture no growth to date Pro-Demetria 0.14 Based on your medical judgment, please clarify whether the pneumonia is related to any of the following? If any of these is not yet confirmed, please select the pneumonia type for which treatment is administered. Respond back with any that apply: [___]Gram-positive methicillin resistant pneumonia due to staphylococcus aureus [___]Gram-negative pneumonia due to other gram-negative bacteria [___]Viral pneumonia, unspecified [___]Unspecified bacterial pneumonia [___]Other: In responding to this request, please exercise your independent professional judgement. The fact that a question is asked does not imply that any particular answer is desired or expected. Thank you! Jolene [phone] From: Barrett Bales DO To: Jolene Patel RN; Sent: 10/15/2023 07:47:17 EDT Subject: RE: Coding Query Caller Name: CARLY MARCELINO; Caller Number: H Other - cultures negative but MRSA screen positive (? colonization)[facility] – JacksonCoding Queryon 15-23-4630Xcxwnt QueryCoding Query From: Jolene Patel RN To: Barrett Bales DO; Cc: Isaura Henson; Sent: 10/10/2023 08:20:02 EDT ! Subject: Coding Query Due Date/Time: 10/15/2023 08:19:00 EDT Caller Name: CARLY MARCELINO; Caller Number: H Documentation in the medical record indicates this patient has been admitted with or diagnosed withPneumonia. Additional documentation is needed to identify the type of the pneumonia. The following is also documented in the medical record: DC summary-On the medical service patient was admitted for right middle lobe pneumonia and was placed on vancomycin and Zosyn. We did a MRSA screen and Pro- Demetria level that came back elevated at 0.14. We maintain her meds from home and cultures were done. Patient's hospital course was uncomplicated. Her cultures are still negative and the MRSA screen is positive. She was anxious for discharge todaybut she did want pulmonology to see her prior to being discharged. Pulmonology saw the patient and recommended a dose of IV doxycycline and then 8 more days of oral Doxy to cover the presumptive MRSAand then switch her to oral antibiotics. 10/04 progress note-1. Pneumonia (J18.9: Pneumonia, unspecified organism) Right middle lobe; recent hospitalizations Suspect gram-negative organisms Day 3 IV Zosyn Nasal MRSA swab negative so we will discontinue vancomycin Blood cultures and sputum culture no growth to date Pro-Demetria 0.14 Based on your medical judgment, please clarify whether the pneumonia is related to any of the following? If any of these is not yet confirmed, please select the pneumonia type for which treatment is administered. Respond back with any that apply: [___]Gram-positive methicillin resistant pneumonia due to staphylococcus aureus [___]Gram-negative pneumonia due to other gram-negative bacteria [___]Viral pneumonia, unspecified [___]Unspecified bacterial pneumonia [___]Other: In responding to this request, please exercise your independent professional judgement. The fact that a question is asked does not imply that any particular answer is desired or expected. Thank you! Jolene [id number] Health System Bucyrus HospitalCoding QueryCoding Query From: Amanda GONZALEZ, Jolene To: Barrett Bales DO; Cc: Isaura Henson; Sent: 10/10/2023 08:01:54 EDT ! Subject: Coding Query Due Date/Time: 10/15/2023 08:01:00 EDT Caller Name: CARLY MARCELINO; Caller Number: H Documentation per a mental health consultant in the medical record indicates this patient has been diagnosed as having: chronic HFpEF The following is also documented in the medical record: 10/05 pulm consult-History of Present Illness Pt is an 83y F with past medical history significant for asthma (no PFTs on file), CAD, chronic HFpEF, HLD, and HTN who presented to the ED on 10/02 with complaints of a witnessed fall at home. 10/04 progress note-Comorbidities include history of asthma, CAD with PCI, anxiety, diastolic dysfunction, chronic anemia, GERD, hyperlipidemia, hypertension, mild pulmonary hypertension and seizure disorder with history of subdural hematoma. Home meds-Spironolactone 07/10/2023 progress note-3. Chronic diastolic heart failure (I50.32: Chronic diastolic (congestive) heart failure) Echo 11/24/21: Normal LV function, Stage 1 diastolic dysfunction, mild PAH Not decompensated Based on your medical judgment of the documented diagnoses by the mental health consultant, do you agree with thediagnosis? [___]Yes, I agree with the diagnosis documented by the mental health consultant. [___]No, I do not agree with the diagnosis documented by the mental health consultant. Reason: [___]Other: In responding to this request, please exercise your independent professional judgement. The fact that a question is asked does not imply that any particular answer is desired or expected. Thank you! Jolene [id number] Nick Medical CenterED Note-Physicianon [id number] Note-PhysicianED Note-Physician Basic Information Time Seen: Maddie DEL RIOEvert 10/08/2023 09:40 Chief Complaint pt arrived via [facility] for a fall. pt was found down by home health. pt states fell approximately 0800 this AM was just discharged from here sunday for pneumonia. History of Present Illness 83-year-old female comes to the ED for evaluation of injury status post fall. The patient had a fall at home. She is not sure exactly how she fell. She was found by home health on the floor. Estimated that the patient was on the floor for around an hour. She complains of pain across to her back. Denies any headache neck pain chest or abdominal pain. She denies feeling short of breath. Per EMS shewas recently hospitalized for pneumonia. Review of Systems A 10 point review of systems is negative except as noted above. Medical and Surgical History: Reviewed and noted Social history: Lives at home Tobacco: Denies Physical Exam Vitals & Measurements T: 36.6 ?C(Oral) HR: 69(Peripheral) RR: 18 BP: 169/77 SpO2: 92% HT: 170 cm WT: 85.7 kg BMI: 29.65 Nurses notes and vital signs reviewed and patient is not hypoxic. General: Awake and alert, immobilized on Little stretcher Skin: Warm, dry, no pallor noted. Head: Atraumatic. Neck: No JVD. Cervical is in place Eye: Normal conjunctiva. Ears, Nose, Mouth, and Throat: Moist mucous membranes Cardiovascular: Strong distal pulses. Chest wall: Ecchymosis over the left anterior chest wall Respiratory: Respirations are nonlabored. Back: Generalized tenderness most notably over the thoracic and lumbar area without focal finding. Musculoskeletal: No pelvic tenderness. Skin tear to the left hand to the left knee without bony tenderness or instability. Good range of motion of all major joints Gastrointestinal: Soft and nontender. Urological: Neurological: Awake and alert. No focal deficits. Follows commands. GCS 15. Psychiatric: Cooperative. Medical Decision Making Laboratory studies reviewed and noted. Trauma scans were obtained and reviewed by the radiologist. The patient was noted to have a T12 fracture. This was discussed with trauma surgery. Patient is currently stable and neurologically intact. They are currently finishing a case in the OR and will be down to evaluate the patient at case completion. Trauma team is evaluated the patient and consulted with spine surgery at [facility]. Recommendation was made to transfer the patient to [place] for surgical evaluation. Patient has been accepted ED to ED transfer to Dr. Yoo. Critical Care Time: 40 minutes, critical care time is separate from any procedures that are performed. The following was considered in the determination of critical care but not limited to the level medical decision-making, intensive cardiac and/or respiratory monitor, frequent vital sign monitoring, evaluation of laboratory studies, evaluation of a radiographic studies, oxygen monitoring and constant monitoring. Assessment/Plan 1. T12 compression fracture (S22.080A: Wedge compression fracture of T11-T12 vertebra, initial encounter for closed fracture) Orders: gabapentin, 300 mg = 1 cap(s), Cap, Oral, Once, Stop date 10/08/23 14:03:00 EDT, STAT, Start date 10/08/23 14:03:00 EDT, 10/08/23 14:03:00 EDT ABO/Rh ABO/Rh History Check Antibody Screen Basic Metabolic Panel Blood Bank ID# CBC w/ Auto Diff Consult to General Surgery CT Abdomen/Pelvis w/ Contrast CT Chest w/ Contrast CT Head or Brain w/o Contrast CT Spine Cervical w/o Contrast Drug Screen Urine ECG 12 Lead Adult ED Cardiac Monitoring eGFR Ethanol Level Hepatic Function Panel Lactic Acid Lipase Level NPO Diet Oxygen Therapy PT & PTT Pulse Oximetry Continuous Saline Lock Insert Transfer Patient to Troponin UA with Cult Rflx Medications Administered Given gabapentin 300 mg Cap, 300 mg, Oral Disposition Plan Patient Discharge Condition Disposition: Transferred Condition: Improved and stable Counseled: Patient and/or family were counseled to workup, results, treatment plan and follow-up recommendations Discharge Prescription List Prescriptions No active prescription medications Follow-up No qualifying data available Attestation I performed a substantive part of the MDM during the patient?s E/M visit. I personally made or approved the documented management plan and acknowledge its risk of complications. (Independent Interpretation) My (EKG/X-Ray/US/CT) interpretation as above. (Discussion) Management/test interpretation discussed with APC. This report was transcribed using voice recognition software. Every effort was made to ensure accuracy, however, inadvertently computerized exhaust emissions inspector mistakes may be present. Appropriate healthcare PPE was used in evaluating this patient. Problem List/Past Medical History Ongoing Anxiety Arthritis Asthma CAD (coronary artery disease) Chronic anemia Chronic GERD Diastolic dysfu (more content not included)...[facility] Comment on above:Result Comment: Electronically Signed By: Evert Perkins PA-C\.br\Date and Time Signed: 10/07/2414:44 EDT\.br\Electronically Co-Signed By: Hank Beard DO\.br\Date and Time Co-Signed: 10/09/23 10:25 EDTABO/Rhon [id number]/RhPositiveInvalid Interpretation [facility] Comment on above:Performed By: #### [id number] #### [facility] [address], [place] [address]NFZ/Rh History Checkon 77-86-0622FZR/Rh History CheckVerified Hx Blood TypeNormalAvita Health System Bucyrus HospitalComment on above:Performed By: #### [id number] #### [facility] [address], [place] [address]ORUEtd 13-16-4193TUXT Gel InterpNegativeNormLouis Stokes Cleveland VA Medical CenterComment on above:Performed By: #### [id number] #### [facility] [address], [place] [address]AONMZ BANKOrdered By: Hebert Villanueva on 18-98-2739KZN/Rh InterpPositiveInvalid Interpretation [facility] BB SubsectionABSC Gel Interp Negative (10/08/23 10:17 AM)NormalPARKSIDE [facility] BB SubsectionBMPon 81-54-9109Dxedl gap [Moles/Vol] 10 mmol/LNormal6-16[facility] HospitalComment on above:Performed By: #### [id number] #### [facility] [address], [place] [address]Hdanhyo [Mass/Vol]8.9 mg/dLNormal8.9-11.1FWright-Patterson Medical CenterComment on above:Performed By: #### [id number] #### [facility] [address], [place] [address]Rtghvphe [Moles/Vol]100 mmol/BTxb483-400JepnbuAvita Health System Bucyrus HospitalComment on above:Performed By: #### [id number] #### [facility] [address], [place] [address]BK7 [Moles/Vol]26 mmol/XBbsibh72-48BbfuzxAvita Health System Bucyrus Hospital Comment on above:Performed By: #### [id number] #### [facility] [address], [place] [address]Jsfumoczky [Mass/Vol]0.7 mg/dLNormal0.5-1.3FWright-Patterson Medical CenterComment on above:Performed By: #### [id number] #### [facility] [address], [place] [address]Rgusqph [Mass/Vol]122 mg/wFCmonyt04-319AeekduAvita Health System Bucyrus HospitalComment on above:Performed By: #### [id number] #### [facility] [address], [place] [address]Dgxgmkkhs [Moles/Vol]3.2 mmol/LLow3.5-5.3FWright-Patterson Medical CenterComment on above:Performed By: #### [id number] #### [facility] [address], [place] [address]Uwkovv [Moles/Vol]133 mmol/ESww705-051VajzcjAvita Health System Bucyrus HospitalComment on above:Performed By: #### [id number] #### [facility] [address], [place] [address]Bxnw nitrogen [Mass/Vol]16 mg/dLNormal5-21[facility] HospitalComment on above:Performed By: #### [id number] #### [facility] [address], [place] [address]Hupw nitrogen/Creatinine [Mass ratio]23 No LsrptAwyx29-34TylqixAvita Health System Bucyrus HospitalComment on above:Performed By: #### [id number] #### [facility] [address], [place] [address]Zusam Bank ID#on [id number] Interpretation CodeAvita Health System Bucyrus HospitalComment on above:Performed By: #### [id number] #### [facility] [address] [place] [address]KLO w/ Auto Diffon 49-90-5497Ealpogaek/100 WBC (Bld)0.2 %Normal 0.0-2.0[facility] HospitalComment on above:Performed By: #### [id number] #### [facility] [address] [place] [address]Dqbxsnzxi/Leukocytes Auto (Bld) [Pure # fraction]0.0 E9/LNormal 0.0-0.2FWright-Patterson Medical CenterComment on above:Performed By: #### [id number] #### [facility] [address] [place] [address]Vvxcxbwoheb (Bld) [#/Vol]0.2 E9/LNormal0.0-0.5FWright-Patterson Medical CenterComment on above:Performed By: #### [id number] #### [facility] [address] [place] [address]Gdjcazkfklk/100 WBC (Bld)2.5 %Normal0.0-8.0[facility] HospitalComment on above:Performed By: #### [id number] #### [facility] [address] [place] [address]Kjofdfwkdmh distribution width (RBC) [Ratio]15.6 %High10.9-14.2 [facility] HospitalComment on above:Performed By: #### [id number] #### [facility] [address] [place] [address]Dplipdxalq (Bld) [Volume fraction]29.5 %Low34.0-46.0[facility] HospitalComment on above:Performed By: #### [id number] #### [facility] [address] [place] [address]Zsjuzledbe (Bld) [Mass/Vol]10.5 g/dLLow12.0-16.0[facility] HospitalComment on above:Performed By: #### [id number] #### [facility] [address] [place] [address]Phdrwtqnrot (Bld) [#/Vol]0.4 E9/LLow1.0-4.0[facility] HospitalComment on above:Performed By: #### [id number] #### [facility] [address] [place] [address]Szeceeuxvly/100 WBC (Bld)6.8 %Low14.0-50.0[facility] HospitalComment on above:Performed By: #### [id number] #### [facility] [address] [place] [address]UXX (RBC) [Entitic mass]30.9 abMgfiuo32.0-34.0[facility] HospitalComment on above:Performed By: #### [id number] #### [facility] [address] [place] [address]UEML (RBC) [Mass/Vol]35.6 g/gPUvmixs25.4-36.0[facility] HospitalComment on above:Performed By: #### [id number] #### [facility] [address] [place] [address]BZD (RBC) [Entitic vol]86.8 jPQhdfnh18.0-100.0[facility] HospitalComment on above:Performed By: #### [id number] #### [facility] [address] [place] [address]Gjqdbmjcl (Bld) [#/Vol]0.5 E9/LNormal0.2-1.0[facility] HospitalComment on above:Performed By: #### [id number] #### [facility] [address] [place] [address]Mpzdydvsmpn (Bld) [#/Vol]5.1 E9/LNormal2.0-7.5FWright-Patterson Medical CenterComment on above:Performed By: #### [id number] #### [facility] [address] [place] [address]Qbzxvgjcmpd/100 WBC (Bld)82.3 %High36.0-75.0[facility] HospitalComment on above:Performed By: #### [id number] #### [facility] [address] [place] [address]Hqwnzsyj153.0 E9/MAhhmux416.0-500.0[facility] Comment on above:Performed By: #### [id number] #### [facility] [address] [place] [address]Dxefgeuc mean volume (Bld) [Entitic vol]7.1 fLNormal6.4-10.8 [facility] HospitalComment on above:Performed By: #### [id number] #### [facility] [address] [place] [address]UJE (Bld) [#/Vol]3.4 E12/LLow4.3-5.9[facility] Comment on above:Performed By: #### [id number] #### [facility] [address] [place] [address]ZNM corrected for nucl RBC Auto (Bld) [#/Vol]6.1 E9/LNormal 4.0-11.0[facility] HospitalComment on above:Performed By: #### [id number] #### [facility] [address] [place] [address]GQWHWXNIWLcnhevs By: SYSTEM SYSTEM on 22-19-8208Ajypnyolfzzb Screen method >1000 ng/mL Ql (U)NEGATIVE 7 (10/08/23 11:31 AM)NormalNEGATIVERemisol ChemComment on above:Interpretive Data: Negative Cutoff: <1000 ng/mLBarbiturates Screen Ql (U)NEGATIVE 8 (10/08/23 11:31 AM)NormalNEGATIVERemisol ChemComment on above:Interpretive Data: Negative Cutoff: <200 ng/mLBenzodiazepines Ql (U)NEGATIVE 1 (10/08/23 11:31 AM)NormalNEGATIVERemisol ChemComment on above:Interpretive Data: Negative Cutoff: <200 ng/mLCannabinoids Screen Ql (U)NEGATIVE 6 (10/08/23 11:31 AM)NormalNEGATIVERemisol ChemComment on above:Interpretive Data: Negative Cutoff: <50 ng/mLCocaine Ql (U)NEGATIVE 2 (10/08/23 11:31 AM)NormalNEGATIVERemisol ChemComment on above:Interpretive Data: Negative Cutoff: <300 ng/mLOpiates Screen Ql (U)NEGATIVE 4 (10/08/23 11:31 AM)NormalNEGATIVERemisol ChemComment on above:Interpretive Data: Negative Cutoff: <300 ng/mLPhencyclidine Screen method >25 ng/mL Ql (U)NEGATIVE 5 (10/08/23 11:31 AM)NormalNEGATIVERemisol ChemComment on above:Interpretive Data: Negative Cutoff: <25 ng/mL These drug screen results are to be used for medical (i.e., treatment) purposes only. Unconfirmed drug screening results must not be used for non-medical purposes (e.g., employment testing, legal testing).U FentanylNEGATIVE 13 (10/08/23 11:31 AM)NormalNEGATIVERemisol ChemComment on above:Interpretive Data: Negative Cutoff: <5 ng/mL These drug screen results are to be used for medical (i.e., treatment) purposes only. Unconfirmed drug screening results must not be used for non-medical purposes (e.g., employment testing, legal testing).Albumin [Mass/Vol]3.3 g/dL Normal3.3 - 5.0 gm/dLRemisol ChemAlbumin/Globulin [Mass ratio]1.1 {ratio}Normal 1.1 - 2.2Remisol ChemALP [Catalytic activity/Vol]73 [iU]/nWfmbpv20 - 98 Int._Unit/LRemisol ChemALT No additional P-5'-P [Catalytic activity/Vol]28 [iU]/dNormal6 - 46 Int._Unit/LRemisol ChemAnion gap [Moles/Vol]10 mmol/LNormal6 - 16 mEq/LRemisol ChemAST [Catalytic activity/Vol]38 [iU]/dNormal5 - 43 Int._Unit/LRemisol ChemBilirubin [Mass/Vol]0.5 mg/dLNormal0.0 - 1.1 mg/dLRemisol ChemBilirubin.direct [Mass/Vol]0.1 mg/dLNormal0.0 - 0.4 mg/dLRemisol Chem Bilirubin.indirect [Mass or moles/Vol]0.4 mg/dLNormal0.1 - 0.9 mg/dLRemisol Chem Calcium [Mass/Vol]8.9 mg/dLNormal8.9 - 11.1 mg/dLRemisol ChemChloride [Moles/Vol]100 mmol/RQfo300 - 111 mmol/LRemisol ChemCO2 [Moles/Vol]26 mmol/L Jbiomb07 - 31 mmol/LRemisol ChemCreatinine [Mass/Vol]0.7 mg/dLNormal0.5 - 1.3 mg/dLRemisol JtclqSZN76 mL/min/1.73 e8Gubfdr>=59mL/min/1.73 v6Nwo[place]aca Chem Ethanol Lvlmg/dLNormal<=11mg/dLRemisol ChemGlobulin (S) [Mass/Vol]2.9 g/dLNormal 1.4 - 4.0 gm/dLRemisol ChemGlucose [Mass/Vol]122 mg/oVYdehrn59 - 199 mg/dL Remisol ChemLactic Acid Lvl1.0 mmol/LNormal0.5 - 2.2 mmol/LRemisol ChemLipase [Catalytic activity/Vol]18 U/FLxjhka15 - 58 unit/LRemisol ChemPotassium [Moles/Vol]3.2 mmol/LLow3.5 - 5.3 mmol/LRemisol ChemProtein [Mass/Vol]6.2 g/dL Normal6.0 - 7.8 gm/dLRemisol ChemSodium [Moles/Vol]133 mmol/OZmb765 - 145 mmol/L Remisol ChemTroponin HS18.90 pg/lPWnenpv42.10 - 27.10 pg/mLRemisol ChemComment on above:Interpretive Data: The 95% CI (Confidence Interval) PPV (Positive Predictive Value) for myocardial infarction in females is 38 pg/mL, in males 51 pg/mL. The results should be used in conjunction withclinical conditions of myocardial infarction. (Access High Sensitivity Troponin I Instructions For Use, Raegan Nolan, October 2017)Urea nitrogen [Mass/Vol]16 mg/dLNormal5 - 21 mg/dLRemisol ChemUrea nitrogen/Creatinine [Mass ratio]23 mg/taBvap77 - 20Remisol ChemCOAGULATION Ordered By: Racquel Case on 86-84-0616xLXU Coag (PPP) [Time]29.9 qSiahdz39.1 - 36.5 second(s)[facility] Auto CoagComment on above:Interpretive Data: Parameter 15 days - 4 weeks 1 - [...] the same coagulation reagent and instrumentation as [facility]. Currently there are no coagulation studies available worldwide for children to 14 days, andno normal ranges. Heparin therapeutic range (represented by Anti-Factor Xa activity of 0.2 - 0.4 U/mL) corresponds to PTT of 56.6 - 109.0 sec.INR Coag (PPP) [Relative time]1.11 {INR}Invalid Interpretation CodePARKSIDE PSYCHIATRIC HOS[facility]ITAL [facility] [place] Auto CoagComment on above:Interpretive Data: INR results are specifically intended to assess patients stabilized on long-term Anticoagulation therapy suggested INR s Less Intensive Anticoagulation 2.0 3.0 Conventional Range 3.0 4.5PT Coag (PPP) [Time]12.4 sNormal9.4 - 12.5 second(s) [facility] Auto CoagComment on above:Interpretive Data: 15 days - 4 weeks 1 - [...] the same coagulation reagent and instrumentation as [facility]. Currently there are no coagulation studies available worldwide for children to 14 days, andno normal ranges.CT Abdomen/Pelvis w/ Contraston 32-64-6991WX Abdomen/Pelvis w/ ContrastExam Date/Time: 10/08/2023 10:41 EDT Reason for Exam: ABDOMINAL TRAUMA;Trauma Report PLEASE SEE CT Chest w/ Contrast REPORT DATED: 10/08/2023. All CT scans at this facility use dose modulation, iterative reconstruction, and/or weight based dosing when appropriate to reduce radiation dose to as low as reasonably achievable. Ordering Provider: Evert Perkins FINAL REPORT Dictated: 10/08/2023 11:01 am Anant Ford MD Signed (Electronic Signature): 10/08/2023 11:01 am Signed by: Anant Ford MD Transcribed by: BRENDA Technologist: LOLI Technical Comments GFR (mL/min/1/73m2) na trauma Contrast: Isovue 300 Contrast amount in ml's: 130 Rectal Contrast Given? NoNormalFisher Sinai Hospital Of BaltimoreCT Chest w/ Contraston 30-71-3700BQ Chest w/ ContrastExam Date/Time: 10/08/2023 10:41 EDT Reason for Exam: CHEST TRAUMA, MOD-SEVERE;Trauma Report IMPRESSION: MILDLY DISPLACED T12 VERTEBRAL BODY FRACTURE. MILDLY ENLARGING SMALL RIGHT PLEURAL EFFUSION. PROBABLY MINIMALLY IMPROVING PREDOMINANTLY RIGHT MIDDLE LOBE BRONCHOPNEUMONIA. A FOLLOW-UP CT IN 2-3 MONTHS IS SUGGESTED. OTHERWISE, NO SIGNIFICANT CHANGE FROM RECENT PRIOR STUDIES. EXAM: CT Chest w/ Contrast, CT Abdomen/Pelvis w/ Contrast, CT Spine Thoracic, CT Spine Lumbar DATE: 10/08/2023 10:10 AM CLINICAL HISTORY: Trauma, CHEST TRAUMA, MOD-SEVERE. COMPARISON: Chest CT 10/04/[address] abdomen and pelvis 10/03/2023. TECHNIQUE: Spiral imaging was obtained of the chest, abdomen and pelvis after the infusion of approximately 130 mL of Isovue 300 contrast. Routine multiplanar reformatted reconstructions were performed; including dedicated reconstructions of the thoracic and lumbar spine. All CT scans at this facility use dose modulation, iterative reconstruction, and/or weight based dosing when appropriate to reduce radiation dose to as low as reasonably achievable. Unless otherwise stated, incidental findings identified in this report do not require routine follow-up imaging. CHEST CT FINDINGS: A fracture of the T12 vertebral body is described below. A small low density layering right pleural effusion has mildly increased in size from 10/04/2023, with mildly increasing dependent atelectasis. Dense consolidation or surrounding infiltrate predominantly within the right middle lobe has probably minimally improved. There are no other displaced fractures, evidence of pulmonary contusion, organized hematoma, pneumothorax, left pleural or pericardial effusion, evidence of great vessel injury, or other posttraumatic complication identified. No significant coronary artery calcifications identified, within the limits of cardiac motion artifact. Report ABDOMEN AND PELVIS CT FINDINGS: There is no evidence of solid organ injury, organized hematoma, free fluid, displaced fractures, other posttraumatic complication, or significant change from 10/04/[address] FINDINGS: A mildly displaced predominantly superior third vertebral body fracture of T12 does not significantly extend into the posterior elements. There is no other fracture, dislocation, or other significant changes from 10/04/[address] FINDINGS: There is no fracture, dislocation, or other significant changes from 10/03/2023 identified. Ordering Provider: Evert Perkins FINAL REPORT Dictated: 10/08/2023 11:00 am Anant Ford MD Signed (Electronic Signature): 10/08/2023 11:00 am Signed by: Anant Ford MD Transcribed by: BRENDA Technologist: LOLI Technical Comments GFR (mL/min/1/73m2) na trauma Contrast: Isovue 300 Contrast amount in ml's: 130NormalFisher Sinai Hospital Of BaltimoreCT Head or Brain w/o Contraston [id number] Head or Brain w/o ContrastExam Date/Time: 10/08/2023 10:32 EDT Reason for Exam: HEAD TRAUMA, MOD-SEVERE;Other (please specify) Report IMPRESSION: NO ACUTE INTRACRANIAL PROCESS IDENTIFIED. EXAM: CT Head or Brain w/o Contrast DATE: 10/08/2023 10:10 AM CLINICAL HISTORY: HEAD TRAUMA, MOD-SEVERE. COMPARISON: 10/03/2023. TECHNIQUE: Routine. All CT scans at this facility use dose modulation, iterative reconstruction, and/or weight based dosing when appropriate to reduce radiation dose to as low as reasonably achievable. FINDINGS: There is no intracranial hemorrhage, mass effect, midline shift, extra-axial collection, evidence of hydrocephalus, skull fracture, or a recent ischemic infarct identified. Mild generalized cerebral volume loss, chronic white matter changes, probably left frontoparietal craniotomies are again noted. The mastoid air cells and visualized paranasal sinuses are essentially clear. Ordering Provider: Evert Perkins FINAL REPORT Dictated: 10/08/2023 10:38 am Anant Ford MD Signed (Electronic Signature): 10/08/2023 10:38 am Signed by: Anant Ford MD Transcribed by: BRENDA Technologist: [facility] HospitalCT Spine Cervical w/o Contraston [id number] Spine Cervical w/o ContrastExam Date/Time: 10/08/2023 10:32 EDT Reason for Exam: NECK TRAUMA, DANGEROUS INJURY MECHANISM;Trauma Report IMPRESSION: NO FRACTURE OR EVIDENCE OF CERVICAL SPINE INJURY IDENTIFIED. EXAM: CT Spine Cervical w/o Contrast DATE: 10/08/2023 10:10 AM CLINICAL HISTORY: Trauma, NECK TRAUMA, DANGEROUS INJURY MECHANISM. COMPARISON: 10/03/2023. TECHNIQUE: Spiral unenhanced images were obtained of the cervical spine, with routine reconstructions performed. All CT scans at this facility use dose modulation, iterative reconstruction, and/or weight based dosing when appropriate to reduce radiation dose to as low as reasonably achievable. FINDINGS: The spine is visualized from the craniovertebral junction through the T2-3 level. There is no fracture, dislocation, or acute paraspinal soft tissue abnormalities identified. Moderate degenerative changes are again noted. Ordering Provider: Evert Perkins FINAL REPORT Dictated: 10/08/2023 10:40 am Anant Ford MD Signed (Electronic Signature): 10/08/2023 10:40 am Signed by: Anant Ford MD Transcribed by: BRENDA Technologist: [facility] [place] [facility] CenterED Clinical Summaryon [id number] Clinical SummaryED Clinical Summary [address] [address] ED Clinical Summary Person Information Name: CARLY MARCELINO [place] Age: 83 Years : 1940 Sex: Female Language: Haitian PCP: HARDEEP MCKENZIE DO Marital Status: Phone: [phone] Visit Id: Visit Reason: Leg abrasion, minor; Knee pain-swelling; Fall; FALL, BACK PAIN Speciality: Acuity: 3 Enc Type: Emergency Med Service: Emergency Arrival: 10/08/2023 09:38:49 Discharge: 10/08/2023 16:26:19 LOS: 000 06:48 Checkin: 10/08/2023 09:38:49 Checkout: 10/08/2023 16:26:19 Dispo Type: Short-Term Hosp as IP EVENTS: Event Name Event Status Request Date/Time Start Date/Time Complete Date/Time Arrive Complete 10/08/2023 09:38:49 10/08/2023 09:38:49 10/08/2023 09:38:49 Document Home Meds Request 10/08/2023 09:38:49 Triage Complete 10/08/2023 09:38:49 10/08/2023 09:49:25 10/08/2023 09:49:25 Bed Assign Complete 10/08/2023 09:38:49 10/08/2023 09:38:49 10/08/2023 09:38:49 Dr Exam Complete 10/08/2023 09:38:49 10/08/2023 09:40:57 10/08/2023 09:40:57 RN Exam Complete 10/08/2023 09:38:49 10/08/2023 10:00:09 10/08/2023 10:00:09 Registration Complete 10/08/2023 09:40:57 10/08/2023 10:46:41 10/08/2023 10:46:41 Dr Exam Complete 10/08/2023 09:41:03 10/08/2023 09:41:03 10/08/2023 09:41:03 Consult Request 10/08/2023 09:45:13 EKG Complete 10/08/2023 09:45:13 10/08/2023 09:59:12 NPO Request 10/08/2023 09:45:13 Pending Labs Complete 10/08/2023 09:45:13 10/08/2023 12:02:50 Lab Complete 10/08/2023 09:45:13 10/08/2023 12:02:50 Urine Collect Complete 10/08/2023 09:45:13 10/08/2023 12:02:50 RT Request 10/08/2023 09:45:13 Patient Care Request 10/08/2023 09:45:13 CT Complete 10/08/2023 09:45:13 10/08/2023 10:10:28 10/08/2023 10:41:55 Blood Collect Request 10/08/2023 09:45:13 30 Day Return Request 10/08/2023 09:49:26 Trauma II Request 10/08/2023 09:58:13 30 Day Return Request 10/08/2023 09:58:13 Fall Risk Request 10/08/2023 10:00:09 Meds Admin Cancel 10/08/2023 10:02:54 10/08/2023 10:06:06 RT Tx/ABG Request 10/08/2023 10:02:55 RT Tx/ABG Request 10/08/2023 10:02:55 RT Tx/ABG Request 10/08/2023 10:06:06 Pending Labs Complete 10/08/2023 10:29:18 10/08/2023 10:29:18 10/08/2023 10:55:55 Lab Complete 10/08/2023 10:29:18 10/08/2023 10:29:18 10/08/2023 10:55:55 Reg Complete Request 10/08/2023 10:46:41 Reg Bed Request Complete 10/08/2023 10:46:41 10/08/2023 10:46:41 10/08/2023 10:46:41 Meds Admin Complete 10/08/2023 14:03:39 10/08/2023 14:12:22 Patient Care Request 10/08/2023 15:27:14 Transfer Complete 10/08/2023 15:27:14 10/08/2023 16:26:40 10/08/2023 16:26:40 Discharge Complete 10/08/2023 16:26:40 10/08/2023 16:26:40 10/08/2023 16:26:40 ADDR[address]: [address] [place] [id number] [facility] DOC NOTES: MEDICAL INFORMATION: Prescriptions Given: Medications to Continue with No Changes Other Medications acetaminophen (acetaminophen 325 mg Tab) 2 Tablets By Mouth every 6 hours as needed Pain. albuterol (Albuterol (Eqv-ProAir HFA) 90 mcg/inh inhalation aerosol) 2 Puffs Inhalation every 6 hours as needed Wheezing. Refills: 0. amoxicillin-clavulanate (Augmentin 875 mg oral tablet) 1 Tablets By Mouth every 12 hours for 7 Days. Refills: 0. aspirin (aspirin 81 mg Chew Tab) 1 Tablets By Mouth every day. baclofen 5 Milligram By Mouth at bedtime. 1/2 of a 10 mg tab. cetirizine (Zyrtec) 10 Milligram By Mouth every day as needed Allergy symptoms. docusate (docusate sodium 100 mg Cap) 1 Capsules By Mouth 2 times a day. TAKE 1 CAPSULE BY MOUTH TWICE DAILY. doxycycline (doxycycline hyclate 100 mg Tab) 1 Tablets By Mouth every 12 hours for 8 Days. Refills:0. famotidine (famotidine 40 mg Tab) 1 Tablets [...] 0. levetiracetam (Keppra) 500 Milligram at bedtime. lisinopril (lisinopril 20 mg Tab) 1 Tablets By Mouth every day. lorazepam (LORazepam 0.5 mg Tab) 1 Tablets By Mouth 3 times a day. losartan (losartan 50 mg Tab) 1 Tablets By Mouth every day. Refills: 0. magnesium oxide (magnesium oxide 400 mg Tab) 1 Tablets By Mouth at bedtime. metoprolol (Metoprolol tartrate 25 mg Tab) 0.5 Tablets By Mouth 2 times a day. Refills: 0. montelukast (montelukast 10 mg Tab) 1 Tablets By Mouth every day. multivitamin with minerals (Multivitamins and Minerals oral tablet) pravastatin (pravastatin 40 mg Tab) 1 Tablets By Mouth every day. at bedtime. PATIENT EDUCATION INFORMATION: Instructions: Follow up: DIAGNOSIS: 1:T12 compression fractureNoSSM Rehab Medical CenterED Patient Education Noteon [id number] Patient Education NoteED Patient Education NoteNoSSM Rehab Medical CenterED Patient Summaryon [id number] Patient SummaryED Patient Summary [place] [id number] Patient Discharge Instructions Person Information Name: CARLY MARCELINO Age: 83 Years Arrival Date: 10/08/2023 09:38:49 Discharge Diagnosis: 1:T12 compression fracture Primary Care Physician: HARDEEP MCKENZIE DO Provider Information Primary Provider: Hank Beard DO Advanced Ecotherapist:Evert Perkins PA-C The exam and treatment you received in the Emergency Department were for an urgent problem and are not intended as complete care. It is important that you follow up with a doctor, nurse practitioner,or physician?s workforce development assistant for ongoing care. If your symptoms [...] opioids can be used to help relieve dpeqekmr-jp-vukphr pain and are often prescribed following a [...] and have fewer risks and side effects. Optionsmay include: ? Pain relievers such as acetaminophen, [...] unused prescription opioids: Find your community drug take- back program or yourpharmacy mail-back program, or flush them down the toilet, following guidance from the Food and Drug Administration (www.fda.gov/Drugs/ResourcesForYou). ? Visit www.cdc.gov/drugoverdose to learn about the risks of opioids abuse and overdose. ? If you believe you may be struggling with addiction, tell your health neonatal intensive care nurse and ask for guidance or call [facility]?S National Helpline at 2-418-818-VIUC. p Source: US Department of Health and Human Services/Center for Disease Control & Prevention [facility] Medications Given: (more content not included)...NormalAvita Health System Bucyrus HospitalEthanolon 44-07-3938Gqbzibw Lvl<10Normal<=11Av[facility] Bucyrus HospitalComment on above: Performed By: #### [id number] #### [facility] [address], [place] [address]PKJVXQJYUYXeoseee By: SYSTEM SYSTEM on 11-21-7483Yxbdkcboi/100 WBC (Bld)0.2 %Normal0.0 - 2.0 %Remisol HemeBasophils/Leukocytes Auto (Bld) [Pure # fraction]0.0 E9/LNormal0.0 - 0.2 E9/LRemisol HemeEosinophils (Bld) [#/Vol]0.2 E9/LNormal0.0 - 0.5 E9/LRemisol HemeEosinophils/100 WBC (Bld)2.5 %Normal0.0 - 8.0 %Remisol HemeErythrocyte distribution width (RBC) [Ratio]15.6 %High10.9 - 14.2 %Remisol HemeHematocrit (Bld) [Volume fraction]29.5 %Low34.0 - 46.0 % Remisol HemeHemoglobin (Bld) [Mass/Vol]10.5 g/dLLow12.0 - 16.0 gm/dLRemisol Heme Lymphocytes (Bld) [#/Vol]0.4 E9/LLow1.0 - 4.0 E9/LRemisol HemeLymphocytes/100 WBC (Bld)6.8 %Low14.0 - 50.0 %Remisol HemeMCH (RBC) [Entitic mass]30.9 pgNormal 27.0 - 34.0 pgRemisol HemeMCHC (RBC) [Mass/Vol]35.6 g/vXIafoyq71.4 - 36.0 gm/dL Remisol HemeMCV (RBC) [Entitic vol]86.8 lEZslnda06.0 - 100.0 fLRemisol Heme Monocytes (Bld) [#/Vol]0.5 E9/LNormal0.2 - 1.0 E9/LRemisol HemeMonocytes/100 WBC (Bld)8.2 %Normal4.0 - 14.0 %Remisol HemeNeutrophils (Bld) [#/Vol]5.1 E9/LNormal 2.0 - 7.5 E9/LRemisol HemeNeutrophils/100 WBC (Bld)82.3 %High36.0 - 75.0 % Remisol FvxxNxlzpxje394.0 E9/LRrrgjx011.0 - 500.0 E9/LRemisol HemePlatelet mean volume (Bld) [Entitic vol]7.1 fLNormal6.4 - 10.8 fLRemisol HemeRBC (Bld) [#/Vol] 3.4 E12/LLow4.3 - 5.9 E12/LRemisol HemeWBC corrected for nucl RBC Auto (Bld) [#/Vol]6.1 E9/LNormal4.0 - 11.0 E9/LRemisol HemeHep Func Panelon 10-08-2023 Albumin [Mass/Vol]3.3 g/dLNormal3.3-5.0Av[facility] Bucyrus HospitalComment on above:Performed By: #### [id number] #### [facility] [address] [place] [address]Sllinrb/Globulin (S) [Mass conc ratio]1.7Oeopup5.1-2.2[facility] Of BaltimoreComment on above:Performed By: #### [id number] #### [facility] [address], [place] [address]KLR [Catalytic activity/Vol]73 Int._Unit/ZBbxwzc59-94DsrquhAvita Health System Bucyrus HospitalComment on above:Performed By: #### [id number] #### [facility] [address], [place] [address]HVL No additional P-5'-P [Catalytic activity/Vol]28 Int._Unit/L Normal6-46[facility] Bucy[facility] HospitalComment on above:Performed By: #### [id number] #### [facility] [address], [place] [address]CAJ [Catalytic activity/Vol]38 Int._Unit/LNormal5-43[facility] HospitalComment on above:Performed By: #### [id number] #### [facility] [address], [place] [address]Lwwgaupgk [Mass/Vol]0.5 mg/dLNormal0.0-1.1FWright-Patterson Medical CenterComment on above:Performed By: #### [id number] #### [facility] [address], [place] [address]Dubkqekyc.direct [Mass/Vol]0.1 mg/dLNormal0.0-0.4FWright-Patterson Medical CenterComment on above:Performed By: #### [id number] #### [facility] [address], [place] [address]Yuvpelaop.indirect [Mass or moles/Vol]0.4 mg/dLNormal0.1-0.9 [facility] HospitalComment on above:Performed By: #### [id number] #### [facility] [address], [place] [address]Gmvhucxk (S) [Mass/Vol]2.9 g/dLNormal1.4-4.0[facility] HospitalComment on above:Performed By: #### [id number] #### [facility] [address], [place] [address]Sakbbqn [Mass/Vol]6.2 g/dLNormal6.0-7.8[facility] HospitalComment on above:Performed By: #### [id number] #### [facility] [address], [place] [address]Vybqqg Acidon 77-97-5263Wglnfx Acid Lvl1.0 mmol/LNormal0.5-2.2 [facility] HospitalComment on above:Performed By: #### [id number] #### [facility] [address], [place] [address]Xfytgv Levelon 87-78-6711Stixww [Catalytic activity/Vol]18 U/L Nqpmet97-28DblktnAvita Health System Bucyrus HospitalComment on above:Performed By: #### [id number] #### [facility] [address], [place] [address]NC & PTTon 20-82-8471vZJR Coag (PPP) [Time]29.9 second(s)Normal 25.1-36.5FWright-Patterson Medical CenterComment on above:Result Comment: Parameter 15 days - 4 weeks 1 - [...] the same coagulation reagent and instrumentation as [facility]. Currently there are no coagulation studies available worldwide for children to 14 days, andno normal ranges. Heparin therapeutic range (represented by Anti-Factor Xa activity of 0.2 - 0.4 U/mL) corresponds to PTT of 56.6 - 109.0 sec.Performed By: #### [id number] #### [facility] [address], [place] [address]NMG Coag (PPP) [Relative time]1.11 {INR}Invalid Interpretation CodeEnrrique Sinai Hospital Of BaltimoreComment on above:Result Comment: INR results are specifically intended to assess patients stabilized on long-term Anticoagulation therapy suggested INR?s ?Less Intensive Anticoagulation? 2.0 ? 3.0 Conventional Range 3.0 ? 4.5Performed By: #### [id number] #### [facility] [address], [place] [address]EX Coag (PPP) [Time]12.4 second(s)Normal9.4-12.5FWright-Patterson Medical CenterComment on above:Result Comment: 15 days - 4 weeks 1 - [...] the same coagulation reagent and instrumentation as [facility]. Currently there are no coagulation studies available worldwide for children to 14 days, andno normal ranges.Performed By: #### [id number] #### [facility] [address], [place] [address]Jmc-Wwynfug Noteon 49-27-4857Pqg-Arrival NotePre-Arrival Note Pre-Arrival Summary Name: , Current Date: 10/08/2023 09:39:48 EDT Gender: Date of : Age: 83 Pre-Arrival Type: EMS ETA: 10/08/2023 09:59:00 EDT Primary Care Physician: Presenting Problem: fall Pre-Arrival User: Ivette Shay RN Referring Source: Location: CT Completion Date/Time: 10/08/2023 09:29:00 [facility] Emergency Department Pre-Hospital Report Form Vital Signs: Pre-Hospital Report: Treatment in Route: Response to Treatment: Misc. Issues:NormalAvita Health System Bucyrus HospitalTroponinon 89-72-3373Krblhynb HS 18.90 pg/vWWvygtq79.10-27.10[facility] HospitalComment on above:Result Comment: The 95% CI (Confidence Interval) PPV (Positive Predictive Value) for myocardial infarction in females is 38 pg/mL, in males 51 pg/mL. The results should be used in conjunction with clinical conditions of myocardial infarction. (Access High Sensitivity Troponin I Instructions For Use, [employer], October 2017)Performed By: #### [id number] #### [facility] [address] [place] [address] Drug Screenon 83-97-0054Gguijqcwytpu Screen method >1000 ng/mL Ql (U)NegativeNormalNEGATIVEAvita Health System Bucyrus HospitalComment on above: Result Comment: Negative Cutoff: <1000 ng/mLPerformed By: #### [id number] #### [facility] [address], [place] [address]Oxjixrnpnmeb Screen Ql (U)NegativeNormalNEGATIVEAvita Health System Bucyrus HospitalComment on above:Result Comment: Negative Cutoff: <200 ng/mL Performed By: #### [id number] #### [facility] [address], [place] [address]Zmzzgyddbthhtxm Ql (U)NegativeNormalNEGATIVEAvita Health System Bucyrus HospitalComment on above:Result Comment: Negative Cutoff: <200 ng/mL Performed By: #### [id number] #### [facility] [address], [place] [address]Ksoklhnvokvx Screen Ql (U)NegativeNormalNEGATIVEAvita Health System Bucyrus HospitalComment on above:Result Comment: Negative Cutoff: <50 ng/mL Performed By: #### [id number] #### [facility] [address], [place] [address]Vrgpnuw Ql (U)NegativeNormalNEGATIVEAvita Health System Bucyrus Hospital Comment on above:Result Comment: Negative Cutoff: <300 ng/mLPerformed By: #### [id number] #### [facility] [address] [place] [address]Rgmduyn Screen Ql (U)NegativeNormalNEGATIVEAvita Health System Bucyrus HospitalComment on above:Result Comment: Negative Cutoff: <300 ng/mLPerformed By: #### [id number] #### [facility] [address], [place] [address]Rumbcadpauuxq Screen method >25 ng/mL Ql (U)NegativeNormal NEGATIVEAvita Health System Bucyrus HospitalComment on above:Result Comment: Negative Cutoff: <25 ng/mL These drug screen results are to be used for medical (i.e., treatment) purposes only. Unconfirmed drug screening results must not be used for non-medical purposes (e.g., employment testing, legal testing).Performed By: #### [id number] #### [facility] [address], [place] [address]K FentanylNegativeNormalNEGATIVEAvita Health System Bucyrus Hospital Comment on above:Result Comment: Negative Cutoff: <5 ng/mL These drug screen results are to be used for medical (i.e., treatment) purposes only. Unconfirmed drug screening results must not be used for non-medical purposes (e.g., employment testing, legal testing).Performed By: #### [id number] #### [facility] [address], [place] [address]US with Cult Rflxon 26-71-7236Rfbyckmpo Ql (U)NegativeNormal NegativeAvita Health System Bucyrus HospitalComment on above:Performed By: #### [id number] #### [facility] [address] [place] [address]Ionwcyq (U)ClearNormalClearAvita Health System Bucyrus HospitalComment on above:Performed By: #### [id number] #### [facility] [address], [place] [address]Lmedj (U)ColorlessAbnormalYellowAvita Health System Bucyrus Hospital Comment on above:Result Comment: Microscopic readings are only performed on those samples that meet specific criteria set forth by [facility].Performed By: #### [id number] #### [facility] [address], [place] [address]Raxmiqn Ql (U)NegativeNormalNegCleveland Clinic Union Hospital Comment on above:Performed By: #### [id number] #### [facility] [address], [place] [address]Laplcvdshl Auto test strip (U) [Mass/Vol]NegativeNormalNegative [facility] HospitalComment on above:Performed By: #### [id number] #### [facility] [address], [place] [address]Hufqqjn Auto test strip Ql (U)NegativeNormalNegCleveland Clinic Union HospitalComment on above:Performed By: #### [id number] #### [facility] [address], [place] [address]Fjkdhmnun esterase Auto test strip Ql (U)NegativeNormalNegative [facility] HospitalComment on above:Performed By: #### [id number] #### [facility] [address], [place] [address]Gphyafv Auto test strip Ql (U)NegativeNormalNegCleveland Clinic Union HospitalComment on above:Performed By: #### [id number] #### [facility] [address], [place] [address]sU (U)6.5 [pH]Invalid Interpretation Code5.0-9.0[facility] HospitalComment on above:Performed By: #### [id number] #### [facility] [address], [place] [address]Xvkwvtk Ql (U)TraceAbnormalNegCleveland Clinic Union Hospital Comment on above:Performed By: #### [id number] #### [facility] [address], [place] [address]Fizpfudu gravity (U) [Rel density]1.018Invalid Interpretation Code1.005-1.030[facility] Bu[facility] HospitalComment on above:Performed By: #### [id number] #### [facility] [address], [place] [address]Prknillzlcwd (U) [Mass/Vol]NegativeNormalNegativeAvita Health System Bucyrus HospitalComment on above:Performed By: #### [id number] #### [facility] [address], [place] [address]Nejg of Urine collection methodClean CatchHolzer Medical Center – JacksonComment on above:Performed By: #### [id number] #### [facility] [address], [place] [address]TMLZZBKTQLCrqzjgs By: SYSTEM SYSTEM on 00-15-3834Unvtgkokc Ql (U)NegativeNormalNegativemg/dLPARKSIDE [facility] UA Auto SSClarity (U)Clear (10/08/23 11:31 AM)NormalClearFTM UA Auto SSColor (U)Colorless 3 *ABN* (10/08/23 11:31 AM)Invalid Interpretation CodeYellowFT UA Auto SSComment on above:Interpretive Data: Microscopic readings are only performed on those samples that meet specific criteria set forth by [facility].Glucose Ql (U)NegativeNormalNegativemg/dLFT UA Auto SSHemoglobin Auto test strip (U) [Mass/Vol]NegativeNormalNegativemg/dLFT UA Auto SSKetones Auto test strip Ql (U)NegativeNormalNegativemg/dLFT UA Auto SSLeukocyte esterase Auto test strip Ql (U)NegativeNormalNegativeLeu/uLFT UA Auto SS Nitrite Auto test strip Ql (U)NegativeNormalNegativemg/dLPARKSIDE PSYCH[facility]ATRIC [facility] UA Auto SSpH (U) 6.5 *NA* (10/08/23 11:31 AM)Invalid Interpretation Code5.0 - 9.0[facility] UA Auto SSProtein Ql (U)Trace mg/dLInvalid Interpretation CodeNegativemg/dLFT UA Auto SSSpecific gravity (U) [Rel density]1.018 *NA* (10/08/23 11:31 AM)Invalid Interpretation Code1.005 - 1.030[facility] UA Auto SS Urobilinogen (U) [Mass/Vol]NegativeNormalNegativemg/dLPARKSIDE PSYCHIATRIC [facility] UA Auto SSURINALYSIS Ordered By: Evert Perkins on 40-91-9768ZG Spec DescClean Catch (10/08/23 11:31 AM)NormalPARKSIDE PSYCHIATRIC [facility] UA Auto SS xr Thoracic and lumbar spine Viewson 10-08-2023 EXAMINATION: XR T-SPINE/L-SPINE JNCT ONLY 2 VIEWS 10/08/2023 09:12 PM CLINICAL HISTORY: STANDING AP/LAT centered at T12 please ASSOCIATED DIAGNOSIS: ORDERING PROVIDER: VALDEZ ESTRADA TECHNOLOGISTS NOTE: COMPARISON: CT BODY IMAGE IMPORT(MICHELLE) 10/08/2023, 10:27 AM IMPRESSION: Difficult to visualized T12 fracture appears unchanged since the previous CT exam today in the morning. Degenerative changes in the facet joints of the lumbar spine. Grade 1 anterolisthesis L4 on L5.Atherosclerotic calcifications in the aorta. XR T-SPINE/L-SPINE JNCT ONLY 2 VIEWS MACRO: None Christine Angel MD - 10/08/2023 EXAMINATION: XR T-SPINE/L-SPINE JNCT ONLY 2 VIEWS 10/08/2023 09:12 PM CLINICAL HISTORY: STANDING AP/LAT centered at T12 please ASSOCIATED DIAGNOSIS: ORDERING PROVIDER: VALDEZ ESTRADA TECHNOLOGISTS NOTE: COMPARISON: CT BODY IMAGE IMPORT(MICHELLE) 10/08/2023, 10:27 AM IMPRESSION: Difficult to visualized T12 fracture appears unchanged since the previous CT exam today in the morning. Degenerative changes in the facet joints of the lumbar spine. Grade 1 anterolisthesis L4 on L5.Atherosclerotic calcifications in the aorta. XR T-SPINE/L-SPINE JNCT ONLY 2 VIEWS MACRO: None [facility] observation (narrative)[facility] Thoracic and lumbar spine ViewsOrdered By: Christine Ramirez on 47-49-5760FfqfsHcsyyw Work Phone: eGFRon 68-59-2112fPIT50 mL/min/1.73 y7Hqofen>=59Fisher Onondaga Medical CenterComment on above:Order Comment: Order added by Discern Expert.Performed By: #### [id number] #### [facility] [address] [place] [id number] Sputumon 05-76-4578Vppoddiz identified Respiratory culture Nom (Sput)Microbiology PROCEDURE: Sputum Culture [R1] SOURCE: Sputum BODY SITE: COLLECTED DATE/TIME: 10/04/2023 11:50 EDT RECEIVED DATE/TIME: 10/04/2023 11:58 EDT START DATE/TIME: 10/04/2023 11:58 EDT FREE TEXT SOURCE: BRAD ZHANG, Renay SALINAS DO, Renay Murphy FINAL REPORTS Final Report [] Verified Date/Time: 10/06/2023 13:26 EDT Scant growth of Normal upper respiratory cary isolated STAINS Gram Stain Report [] Verified Date/Time: 10/05/2023 12:41 EDT 1+ White Blood Cells Occasional epithelial cells Occasional Gram Positive Cocci Occasional Gram Positive Rods Performing Locations R1: This test was performed at: [facility], [address] [place] [address], [id number] , , UsqxheJcjclrBerger HospitalComment on above:Performed By: #### [id number] #### [facility] [address] [place] [address]Lqcxddjpa Note-Nursingon 22-02-0338Fhpkquoam Note-Nursing Discharge Note-Nursing This nurse tried calling report to [facility] twice with no answer.[facility] JacksonInpatient Clinical Summaryon 10-06-2023 Inpatient Clinical SummaryInpatient Clinical Summary [address] [address] Clinical Summary Person Information: Name: CARLY MARCELINO Age: 83 Years : 1940 Sex: Female PCP: HARDEEP MCKENZIE DO Marital Status: Phone: [phone] Race: White Ethnicity: Non- or Language: Haitian Visit Id: Visit Reason: Potential stroke; Fall; Altered mental status; POS STROKE Speciality: Acuity: Enc Type: Inpatient Med Service: Medical Arrival: 10/03/2023 17:13:44 Discharge: Dispo Type: Admitted as IP to this Hosp Address: [address] [place] [address] [place] [phone] Provider Notes: Diagnosis: 1:Pneumonia; 2:Altered mental status; 3:History of subdural hematoma; 4:Accidental fall; 5:Seizure disorder; 6:CAD (coronary artery disease); 7:HTN; 8:Anxiety; 9:Hyperlipidemia; 10:On deep vein thrombosis (DVT) prophylaxis; Hip fracture; Shoulder contusion Problems Active Hyperlipidemia Anxiety Chronic GERD Mild pulmonary hypertension Diastolic dysfunction Morbid obesity Hepatic cyst Chronic anemia CAD (coronary artery disease) Arthritis Seasonal allergies Seizure disorder Asthma Traumatic hematoma of left knee Fall HTN Smoking Status: Former Smoker Functional Status: Sensory Deficits: History of Falls: Mobility Assistance Prior to Admission: ADLs: Moderate assistance Current Level of Assistance for Self-Care/Mobility: Cognitive Status: Oriented x 3 Allergies Dilantin Norvasc Depakote TEGretol Procardia labetalol hydroCHLOROthiazide (Hyponatremia) Measurements: Height: 170 cm Weight: 85.7 kg Blood Pressure: 137 mmHg / 72 mmHg BMI: 30.1 kg/m2 Procedures No Procedures Documented Immunizations No Immunizations Documented This Visit Final Med List: acetaminophen (acetaminophen 325 mg Tab) 2 Tablets By Mouth every 6 hours as needed Pain. albuterol (Albuterol (Eqv-ProAir HFA) 90 mcg/inh inhalation aerosol) 2 Puffs Inhalation every 6 hours as needed Wheezing. Refills: 0. amoxicillin-clavulanate (Augmentin 875 mg oral tablet) 1 Tablets By Mouth every 12 hours for 7 Days. Refills: 0. aspirin (aspirin 81 mg Chew Tab) 1 Tablets By Mouth every day. baclofen 5 Milligram By Mouth at bedtime. 1/2 of a 10 mg tab. cetirizine (Zyrtec) 10 Milligram By Mouth every day as needed Allergy symptoms. docusate (docusate sodium 100 mg Cap) 1 Capsules By Mouth 2 times a day. TAKE 1 CAPSULE BY MOUTH TWICE DAILY. doxycycline (doxycycline hyclate 100 mg Tab) 1 Tablets By Mouth every 12 hours for 8 Days. Refills:0. famotidine (famotidine 40 mg Tab) 1 Tablets [...] 0. levetiracetam (Keppra) 500 Milligram at bedtime. lisinopril (lisinopril 20 mg Tab) 1 Tablets By Mouth every day. lorazepam (LORazepam 0.5 mg Tab) 1 Tablets By Mouth 3 times a day. losartan (losartan 50 mg Tab) 1 Tablets By Mouth every day. Refills: 0. magnesium oxide (magnesium oxide 400 mg Tab) 1 Tablets By Mouth at bedtime. metoprolol (Metoprolol tartrate 25 mg Tab) 0.5 Tablets By Mouth 2 times a day. Refills: 0. montelukast (montelukast 10 mg Tab) 1 Tablets By Mouth every day. multivitamin with minerals (Multivitamins and Minerals oral tablet) pravastatin (pravastatin 40 mg Tab) 1 Tablets By Mouth every day. at bedtime. Care Team Members: Attending Physician: Renay SALINAS DO Consulting Physician: Riaz Alvarado Jr., PA-C Referring Physician: Follow up: With: Address: When: HARDEEP MCKENZIE [address] [place], [place] [id number] Business (1) Comments: Call for followup appointment Patient Education Information: Managing Your Hypertension; Fall Prevention in the Home, Adult, [id number] Clinical SummaryInpatient Clinical Summary [address] [address] Clinical Summary Person Information: Name: CARLY MARCELINO Age: 83 Years : 1940 Sex: Female PCP: HARDEEP MCKENZIE DO Marital Status: Phone: [phone] Race: White Ethnicity: Non- or Language: Haitian Visit Id: Visit Reason: Potential stroke; Fall; Altered mental status; POS STROKE Speciality: Acuity: Enc Type: Inpatient Med Service: Medical Arrival: 10/03/2023 17:13:44 Discharge: Dispo Type: Admitted as IP to this Hosp Address: [address] [place] [address] [place] [phone] Provider Notes: Diagnosis: 1:Pneumonia; 2:Altered mental status; 3:History of subdural hematoma; 4:Accidental fall; 5:Seizure disorder; 6:CAD (coronary artery disease); 7:HTN; 8:Anxiety; 9:Hyperlipidemia; 10:On deep vein thrombosis (DVT) prophylaxis; Hip fracture; Shoulder contusion Problems Active Hyperlipidemia Anxiety Chronic GERD Mild pulmonary hypertension Diastolic dysfunction Morbid obesity Hepatic cyst Chronic anemia CAD (coronary artery disease) Arthritis Seasonal allergies Seizure disorder Asthma Traumatic hematoma of left knee Fall HTN Smoking Status: Former Smoker Functional Status: Sensory Deficits: History of Falls: Mobility Assistance Prior to Admission: ADLs: Moderate assistance Current Level of Assistance for Self-Care/Mobility: Cognitive Status: Oriented x 3 Allergies Dilantin Norvasc Depakote TEGretol Procardia labetalol hydroCHLOROthiazide (Hyponatremia) Measurements: Height: 170 cm Weight: 85.7 kg Blood Pressure: 137 mmHg / 72 mmHg BMI: 30.1 kg/m2 Procedures No Procedures Documented Immunizations No Immunizations Documented This Visit Final Med List: acetaminophen (acetaminophen 325 mg Tab) 2 Tablets By Mouth every 6 hours as needed Pain. albuterol (Albuterol (Eqv-ProAir HFA) 90 mcg/inh inhalation aerosol) 2 Puffs Inhalation every 6 hours as needed Wheezing. Refills: 0. amoxicillin-clavulanate (Augmentin 875 mg oral tablet) 1 Tablets By Mouth every 12 hours for 7 Days. Refills: 0. aspirin (aspirin 81 mg Chew Tab) 1 Tablets By Mouth every day. baclofen 5 Milligram By Mouth at bedtime. 1/2 of a 10 mg tab. cetirizine (Zyrtec) 10 Milligram By Mouth every day as needed Allergy symptoms. docusate (docusate sodium 100 mg Cap) 1 Capsules By Mouth 2 times a day. TAKE 1 CAPSULE BY MOUTH TWICE DAILY. doxycycline (doxycycline hyclate 100 mg Tab) 1 Tablets By Mouth every 12 hours for 8 Days. Refills:0. famotidine (famotidine 40 mg Tab) 1 Tablets [...] 0. levetiracetam (Keppra) 500 Milligram at bedtime. lisinopril (lisinopril 20 mg Tab) 1 Tablets By Mouth every day. lorazepam (LORazepam 0.5 mg Tab) 1 Tablets By Mouth 3 times a day. losartan (losartan 50 mg Tab) 1 Tablets By Mouth every day. Refills: 0. magnesium oxide (magnesium oxide 400 mg Tab) 1 Tablets By Mouth at bedtime. metoprolol (Metoprolol tartrate 25 mg Tab) 0.5 Tablets By Mouth 2 times a day. Refills: 0. montelukast (montelukast 10 mg Tab) 1 Tablets By Mouth every day. multivitamin with minerals (Multivitamins and Minerals oral tablet) pravastatin (pravastatin 40 mg Tab) 1 Tablets By Mouth every day. at bedtime. Care Team Members: Attending Physician: Renay SALINAS DO Consulting Physician: Riaz Alvarado Jr., PA-C Referring Physician: Follow up: With: Address: When: HARDEEP MCKENZIE [address] [place] [address] [facility] (1) Comments: Call for followup appointment Patient Education Information:[facility] Patient Summaryon [id number] Patient SummaryInpatient Patient Summary CARLY MARCELINO :1940 Visit Date:10/03/2023 Inpatient Discharge Instructions Your Care Team Admitting Physician - Renay SALINAS DO Consulting Physician - Riaz Alvarado Jr., PA-C Reason for Your Visit pt found at 0930 today for altered mental status and head leaning to right which family states isntnormal. pt states fell yesterday morning, denies any headstrike, LOC, or blood thinners. denies pain anywhere. FSBS 97 upon arrival. hx of seizures Your Diagnosis Pneumonia Altered mental status History of subdural hematoma Accidental fall Seizure disorder CAD (coronary artery disease) HTN Anxiety Hyperlipidemia On deep vein thrombosis (DVT) prophylaxis Altered mental status Fall Hip fracture Potential stroke Shoulder contusion Tests Performed Cervical Spine CT w/o Contrast CT Abdomen/Pelvis w/o Contrast CT Chest w/o Contrast CT Head or Brain w/o Contrast Shoulder XR Complete Left XR Chest Single View XR Hip 2-3 Views Right + Pelvis This Is Your Medications List Fish Oil acetaminophen (acetaminophen 325 mg Tab) albuterol (Albuterol (Eqv-ProAir HFA) 90 mcg/inh inhalation aerosol) amoxicillin-clavulanate (Augmentin 875 mg oral tablet) aspirin (aspirin 81 mg Chew Tab) baclofen cetirizine (Zyrtec) docusate (docusate sodium 100 mg Cap) doxycycline (doxycycline hyclate 100 mg Tab) famotidine (famotidine 40 mg Tab) ferrous sulfate (ferrous sulfate 325 mg Tab) gabapentin (gabapentin 300 mg Cap) guaifenesin (Mucinex 600 mg Tab-ER) levetiracetam (Keppra) lisinopril (lisinopril 20 mg Tab) lorazepam (LORazepam 0.5 mg Tab) losartan (losartan 50 mg Tab) magnesium oxide (magnesium oxide 400 mg Tab) metoprolol (Metoprolol tartrate 25 mg Tab) montelukast (montelukast 10 mg Tab) multivitamin with minerals (Multivitamins and Minerals oral tablet) pravastatin (pravastatin 40 mg Tab) Procedure History PCI - Percutaneous coronary intervention (11/24/2021), Eye surgery (2003), Back sx, begnign tumor removal, Bilateral knee sx, bilateral shoulder sx, Breast biopsy sample, left foot reconstruction, pharygeal plasty. Discharge Vitals Temperature (Axillary) 36.3 ?C Heart Rate (Monitored) 73 Respiratory Rate 18 Blood Pressure 137/72 Weight 85.7 kg What to do next Instructions From Your Doctor Event Name Event Result Discharge Activity Ambulate as tolerated Discharge Restrictions No restrictions Discharge Diet(s) Fat Modified- Low cholesterol New Follow Up Appointments after Discharge Follow Up with HARDEEP MCKENZIE When: Comments: Call for followup appointment Where: [address] [facility] [address] [place] [address]- Business (1) Medications What How Much When Instructions Next Dose New amoxicillin-clavulanate (Augmentin 875 mg oral tablet) 1 Tablets By Mouth Every 12 hours Duration: 7 Days Pickup at [facility] New doxycycline (doxycycline hyclate 100 mg Tab) 1 Tablets By Mouth Every 12 hours Duration: 8 DaysPickup at [facility] Unchanged acetaminophen (acetaminophen 325 mg Tab) 2 Tablets By Mouth Every 6 hours as needed for Pain Unchanged albuterol (Albuterol (Eqv-ProAir HFA) 90 mcg/ inh inhalation aerosol) 2 Puffs Inhalation Every 6 hours as needed for Wheezing Unchanged aspirin (aspirin 81 mg Chew Tab) 1 Tablets By Mouth Every day Unchanged baclofen 5 Milligram By Mouth At bedtime 1/ 2 of a 10 mg tab Unchanged cetirizine (Zyrtec) 10 Milligram By Mouth Every day as needed for Allergy symptoms Unchanged docusate (docusate sodium 100 mg Cap) 1 Capsules By Mouth 2 times a day TAKE 1 CAPSULE BYMOUTH TWICE DAILY Unchanged famotidine (famotidine 40 mg Tab) 1 Tablets By Mouth Every day Unchanged ferrous sulfate (ferrous sulfate 325 mg Tab) 1 Tablets By Mouth Every day Unchanged Fish Oil 1 Capsules By Mouth At bedtime Unchanged gabapentin (gabapentin 300 mg Cap) 1 Capsules By Mouth 3 times a day Unchanged guaifenesin (Mucinex 600 mg Tab-ER) 2 Tablets By Mouth 2 times a day Unchanged levetiracetam (Keppra) 500 Milligram At bedtime Unchanged lisinopril (lisinopril 20 mg Tab) 1 Tablets By Mouth Every day Unchanged lorazepam (LORazepam 0.5 mg Tab) 1 Tablets By Mouth 3 times a day Unchanged losartan (losartan 50 mg Tab) 1 Tablets By Mouth Every day Unchanged magnesium oxide (magnesium oxide 400 mg Tab) 1 Tablets By Mouth At bedtime Unchanged metoprolol (Metoprolol tartrate 25 mg Tab) 0.5 Tablets By Mouth 2 times a day Unchanged montelukast (montelukast 10 mg Tab) 1 Tablets By Mouth Every day Unchanged multivitamin with minerals (Multivitamins and Minerals oral tablet) Unchanged pravastatin (pravastatin 40 mg Tab) 1 Tablets By Mouth Every day at bedtime Pharmacy Information [facility]: [address] [place], [place] [id number] [phone] Test Results CBC BMP WBC: 6 E9/L (10/05/23 06:05:00) (more content not included)...[facility] SummaryInpatient Patient Summary [address] [address] Patient Discharge Instructions PERSON INFORMATION Name: CARLY MARCELINO Date of : 1940 Current Date: 10/06/2023 13:43:44 PHYSICIANS Admitting Physician: Renay SALINAS DO Primary Care Physician: HARDEEP MCKENZIE DO PCP Comment: Discharge Diagnosis: 1:Pneumonia; 2:Altered mental status; 3:History of subdural hematoma; 4:Accidental fall; 5:Seizure disorder; 6:CAD (coronary artery disease); 7:HTN; 8:Anxiety; 9:Hyperlipidemia; 10:On deep vein thrombosis (DVT) prophylaxis; Hip fracture; Shoulder contusion Condition at Discharge: Stable CARLY MARCELINO Carolyn has been given the following list of follow-up instructions, prescriptions, and patient education materials: PATIENT FOLLOW-UP INFORMATION Diet: Fat Modified- Low cholesterol Discharge Activity: Ambulate as tolerated Discharge Restrictions: No restrictions Wound Care Instructions: Remove Your Dressing In Days Call Your Doctor For: IF UNABLE TO CONTACT YOUR PHYSICIAN AND YOU FEEL IT IS AN EMERGENCY, GO TO THE NEAREST EMERGENCY ROOM OR CALL 911 Home Treatment: Devices/Equipment: None Special Services: Additional Instructions: Primary Care Physician to provide the following pending test results: Follow up: With: Address: When: HARDEEP MCKENZIE [facility] [address] [address] Business (1) Comments: Call for followup appointment In the event that this physician does not participate in your insurance network, please consult with your insurance company to find a nearby participating provider. Comment: CHARI Swain CAROLE A, have received the attached patient education materials/instructions and have verbalized understanding: Patient Signature Date Clinican/Nurse Signature Date HERE ARE THE MEDICATION CHANGES THAT OCCURRED DURING YOUR HOSPITAL STAY New Medications [facility], [address] [place] [id number], [phone] amoxicillin-clavulanate (Augmentin 875 mg oral tablet) 1 Tablets By Mouth every 12 hours for 7 Days. Refills: 0. Last Dose: Next Dose: doxycycline (doxycycline hyclate 100 mg Tab) 1 Tablets By Mouth every 12 hours for 8 Days. Refills:0. Last Dose: Next Dose: Medications to Continue with No Changes Other Medications acetaminophen (acetaminophen 325 mg Tab) 2 Tablets By Mouth every 6 hours as needed Pain. Last Dose: Next Dose: albuterol (Albuterol (Eqv-ProAir HFA) 90 mcg/inh inhalation aerosol) 2 Puffs Inhalation every 6 hours as needed Wheezing. Refills: 0. Last Dose: Next Dose: aspirin (aspirin 81 mg Chew Tab) 1 Tablets By Mouth every day. Last Dose: Next Dose: baclofen 5 Milligram By Mouth at bedtime. 1/2 of a 10 mg tab. Last Dose: Next Dose: cetirizine (Zyrtec) 10 Milligram By Mouth every day as needed Allergy symptoms. Last Dose: Next Dose: docusate (docusate sodium 100 mg Cap) 1 Capsules By Mouth 2 times a day. TAKE 1 CAPSULE BY MOUTH TWICE DAILY. Last Dose: Next Dose: famotidine (famotidine 40 mg Tab) 1 Tablets By Mouth every day. Refills: 0. Last Dose: Next Dose: ferrous sulfate (ferrous sulfate 325 mg Tab) 1 Tablets By Mouth every day. Refills: 0. Last Dose: Next Dose: Fish Oil 1 Capsules By Mouth at bedtime. Last Dose: Next Dose: gabapentin (gabapentin 300 mg Cap) 1 Capsules By Mouth 3 times a day. Last Dose: Next Dose: guaifenesin (Mucinex 600 mg Tab-ER) 2 Tablets By Mouth 2 times a day. Refills: 0. Last Dose: Next Dose: levetiracetam (Keppra) 500 Milligram at bedtime. Last Dose: Next Dose: lisinopril (lisinopril 20 mg Tab) 1 Tablets By Mouth every day. Last Dose: Next Dose: lorazepam (LORazepam 0.5 mg Tab) 1 Tablets By Mouth 3 times a day. Last Dose: Next Dose: losartan (losartan 50 mg Tab) 1 Tablets By Mouth every day. Refills: 0. Last Dose: Next Dose: magnesium oxide (magnesium oxide 400 mg Tab) 1 Tablets By Mouth at bedtime. Last Dose: Next Dose: metoprolol (Metoprolol tartrate 25 mg Tab) 0.5 Tablets By Mouth 2 times a day. Refills: 0. Last Dose:____ (more content not included)...[facility] Patient SummaryInpatient Patient Summary CARLY MARCELINO :1940 Visit Date:10/03/2023 Inpatient Discharge Instructions Your Care Team Admitting Physician - Renay SALINAS DO Consulting Physician - Riaz Alvarado Jr., PA-C Reason for Your Visit pt found at 0930 today for altered mental status and head leaning to right which family states isntnormal. pt states fell yesterday morning, denies any headstrike, LOC, or blood thinners. denies pain anywhere. FSBS 97 upon arrival. hx of seizures Your Diagnosis Pneumonia Altered mental status History of subdural hematoma Accidental fall Seizure disorder CAD (coronary artery disease) HTN Anxiety Hyperlipidemia On deep vein thrombosis (DVT) prophylaxis Altered mental status Fall Hip fracture Potential stroke Shoulder contusion Tests Performed Cervical Spine CT w/o Contrast CT Abdomen/Pelvis w/o Contrast CT Chest w/o Contrast CT Head or Brain w/o Contrast Shoulder XR Complete Left XR Chest Single View XR Hip 2-3 Views Right + Pelvis This Is Your Medications List Fish Oil acetaminophen (acetaminophen 325 mg Tab) albuterol (Albuterol (Eqv-ProAir HFA) 90 mcg/inh inhalation aerosol) amoxicillin-clavulanate (Augmentin 875 mg oral tablet) aspirin (aspirin 81 mg Chew Tab) baclofen cetirizine (Zyrtec) docusate (docusate sodium 100 mg Cap) doxycycline (doxycycline hyclate 100 mg Tab) famotidine (famotidine 40 mg Tab) ferrous sulfate (ferrous sulfate 325 mg Tab) gabapentin (gabapentin 300 mg Cap) guaifenesin (Mucinex 600 mg Tab-ER) levetiracetam (Keppra) lisinopril (lisinopril 20 mg Tab) lorazepam (LORazepam 0.5 mg Tab) losartan (losartan 50 mg Tab) magnesium oxide (magnesium oxide 400 mg Tab) metoprolol (Metoprolol tartrate 25 mg Tab) montelukast (montelukast 10 mg Tab) multivitamin with minerals (Multivitamins and Minerals oral tablet) pravastatin (pravastatin 40 mg Tab) Procedure History PCI - Percutaneous coronary intervention (11/24/2021), Eye surgery (2003), Back sx, begnign tumor removal, Bilateral knee sx, bilateral shoulder sx, Breast biopsy sample, left foot reconstruction, pharygeal plasty. Discharge Vitals Temperature (Axillary) 36.3 ?C Heart Rate (Monitored) 73 Respiratory Rate 18 Blood Pressure 137/72 Weight 85.7 kg What to do next Instructions From Your Doctor Event Name Event Result Discharge Activity Ambulate as tolerated Discharge Restrictions No restrictions Discharge Diet(s) Fat Modified- Low cholesterol New Follow Up Appointments after Discharge Follow Up with HARDEEP MCKENZIE When: Comments: Call for followup appointment Where: [address] [place] [address]- [facility] (1) Medications What How Much When Instructions Next Dose New amoxicillin-clavulanate (Augmentin 875 mg oral tablet) 1 Tablets By Mouth Every 12 hours Duration: [address] [facility] 115 10/06 @ 0700 am New doxycycline (doxycycline hyclate 100 mg Tab) 1 Tablets By Mouth Every 12 hours Duration: [address] [facility] 115 10/06 @ 0700 am Unchanged acetaminophen (acetaminophen 325 mg Tab) 2 Tablets By Mouth Every 6 hours as needed for Pain as needed Unchanged albuterol (Albuterol (Eqv-ProAir HFA) 90 mcg/ inh inhalation aerosol) 2 Puffs Inhalation Every 6 hours as needed for Wheezing as needed Unchanged aspirin (aspirin 81 mg Chew Tab) 1 Tablets By Mouth Every day 10/06 @ 00 am Unchanged baclofen 5 Milligram By Mouth At bedtime 1/ 2 of a 10 mg tab 10/06 @ 699 pm Unchanged cetirizine (Zyrtec) 10 Milligram By Mouth Every day as needed for Allergy symptoms as needed Unchanged docusate (docusate sodium 100 mg Cap) 1 Capsules By Mouth 2 times a day TAKE 1 CAPSULE BYMOUTH TWICE DAILY 10/06 @ 00 am Unchanged famotidine (famotidine 40 mg Tab) 1 Tablets By Mouth Every day 10/06 @ 699 am Unchanged ferrous sulfate (ferrous sulfate 325 mg Tab) 1 Tablets By Mouth Every day 10/06 am Unchanged Fish Oil 1 Capsules By Mouth At bedtime 10/06 @ 00 pm Unchanged gabapentin (gabapentin 300 mg Cap) 1 Capsules By Mouth 3 times a day 10/06 @ 699 am Unchanged guaifenesin (Mucinex 600 mg Tab-ER) 2 Tablets By Mouth 2 times a day 10/06 am Unchanged levetiracetam (Keppra) 500 Milligram At bedtime 10/06 @ 00 pm Unchanged lisinopril (lisinopril 20 mg Tab) 1 Tablets By Mouth Every day 10/06 @ 699 am Unchanged lorazepam (LORazepam 0.5 mg Tab) 1 Tablets By Mouth 3 times a day 10/06 am Unchanged losartan (losartan 50 mg Tab) 1 Tablets By Mouth Every day 10/06 @ 0700 am Unchanged magnesium oxide (magnesium oxide 400 mg Tab) 1 Tablets By Mouth At bedtime 10/06 @ 0700 pm Unchanged metoprolol (Metoprolol tartrate 25 mg Tab) 0.5 Tablets By Mouth 2 times a day 10/06 @ 0700am Unchanged montelukast (montelukast 10 mg Tab) 1 Tablets By Mouth Every day 10/06 @ 0700 am Unchanged multivitamin with minerals (Multivitamins and Mineral (more content not included)...[facility] Patient Summary [address] [address] Patient Discharge Instructions PERSON INFORMATION Name: SURI MARCELINORosalind Leon Date of : 1940 Current Date: 10/06/2023 12:40:31 PHYSICIANS Admitting Physician: Renay SALINAS DO Primary Care Physician: HARDEEP MCKENZIE DO PCP Comment: Discharge Diagnosis: 1:Pneumonia; 2:Altered mental status; 3:History of subdural hematoma; 4:Accidental fall; 5:Seizure disorder; 6:CAD (coronary artery disease); 7:HTN; 8:Anxiety; 9:Hyperlipidemia; 10:On deep vein thrombosis (DVT) prophylaxis; Hip fracture; Shoulder contusion Condition at Discharge: Stable CARLY MARCELINO has been given the following list of follow-up instructions, prescriptions, and patient education materials: PATIENT FOLLOW-UP INFORMATION Diet: Fat Modified- Low cholesterol Discharge Activity: Ambulate as tolerated Discharge Restrictions: No restrictions Wound Care Instructions: Remove Your Dressing In Days Call Your Doctor For: IF UNABLE TO CONTACT YOUR PHYSICIAN AND YOU FEEL IT IS AN EMERGENCY, GO TO THE NEAREST EMERGENCY ROOM OR CALL 911 Home Treatment: Devices/Equipment: None Special Services: Additional Instructions: Primary Care Physician to provide the following pending test results: Follow up: With: Address: When: HARDEEP MCKENZIE [address] [place] [address] [address] Business (1) Comments: Call for followup appointment In the event that this physician does not participate in your insurance network, please consult with your insurance company to find a nearby participating provider. Comment: CHARI Swain CAROLE A, have received the attached patient education materials/instructions and have verbalized understanding: Patient Signature Date Clinican/Nurse Signature Date HERE ARE THE MEDICATION CHANGES THAT OCCURRED DURING YOUR HOSPITAL STAY New Medications [facility], [address] [facility] [place], [place] [id number], [phone] amoxicillin-clavulanate (Augmentin 875 mg oral tablet) 1 Tablets By Mouth every 12 hours for 7 Days. Refills: 0. Last Dose: Next Dose: doxycycline (doxycycline hyclate 100 mg Tab) 1 Tablets By Mouth every 12 hours for 8 Days. Refills:0. Last Dose: Next Dose: Medications to Continue with No Changes Other Medications acetaminophen (acetaminophen 325 mg Tab) 2 Tablets By Mouth every 6 hours as needed Pain. Last Dose: Next Dose: albuterol (Albuterol (Eqv-ProAir HFA) 90 mcg/inh inhalation aerosol) 2 Puffs Inhalation every 6 hours as needed Wheezing. Refills: 0. Last Dose: Next Dose: aspirin (aspirin 81 mg Chew Tab) 1 Tablets By Mouth every day. Last Dose: Next Dose: baclofen 5 Milligram By Mouth at bedtime. 1/2 of a 10 mg tab. Last Dose: Next Dose: cetirizine (Zyrtec) 10 Milligram By Mouth every day as needed Allergy symptoms. Last Dose: Next Dose: docusate (docusate sodium 100 mg Cap) 1 Capsules By Mouth 2 times a day. TAKE 1 CAPSULE BY MOUTH TWICE DAILY. Last Dose: Next Dose: famotidine (famotidine 40 mg Tab) 1 Tablets By Mouth every day. Refills: 0. Last Dose: Next Dose: ferrous sulfate (ferrous sulfate 325 mg Tab) 1 Tablets By Mouth every day. Refills: 0. Last Dose: Next Dose: Fish Oil 1 Capsules By Mouth at bedtime. Last Dose: Next Dose: gabapentin (gabapentin 300 mg Cap) 1 Capsules By Mouth 3 times a day. Last Dose: Next Dose: guaifenesin (Mucinex 600 mg Tab-ER) 2 Tablets By Mouth 2 times a day. Refills: 0. Last Dose: Next Dose: levetiracetam (Keppra) 500 Milligram at bedtime. Last Dose: Next Dose: lisinopril (lisinopril 20 mg Tab) 1 Tablets By Mouth every day. Last Dose: Next Dose: lorazepam (LORazepam 0.5 mg Tab) 1 Tablets By Mouth 3 times a day. Last Dose: Next Dose: losartan (losartan 50 mg Tab) 1 Tablets By Mouth every day. Refills: 0. Last Dose: Next Dose: magnesium oxide (magnesium oxide 400 mg Tab) 1 Tablets By Mouth at bedtime. Last Dose: Next Dose: metoprolol (Metoprolol tartrate 25 mg Tab) 0.5 Tablets By Mouth 2 times a day. Refills: 0. Last Dose: (more content not included)...[facility] JacksonMRSA Screenon [id number] DNA ALEXANDRU+probe Ql (Unsp spec)Microbiology PROCEDURE: MRSA Screen [R1] SOURCE: Nasal BODY SITE: COLLECTED DATE/TIME: 10/04/2023 00:37 EDT RECEIVED DATE/TIME: 10/04/2023 01:02 EDT START DATE/TIME: 10/04/2023 01:02 EDT FREE TEXT SOURCE: Renay SALINAS DOICK Renay ZHANG FINAL REPORTS Final Report [] Verified Date/Time: 10/06/2023 11:42 EDT MRSA Positive. Result called to Staci Gonsales (Edil) by [facility] and results read back for confirmation on 10/06/2023 11:42:14 Performing Locations R1: This test was performed at: [facility], [address] [place] [address], [id number] , , FuvabzTpozbgHolzer Medical Center – JacksonComment on above:Performed By: #### [id number] #### [facility] [address] [place] [address] [id number] By: SYSTEM SYSTEM on 24-48-9048Scupa gap [Moles/Vol]12 mmol/LNormal6 - 16 mEq/LRemisol ChemCalcium [Mass/Vol]8.1 mg/dLLow 8.9 - 11.1 mg/dLRemisol ChemChloride [Moles/Vol]102 mmol/MTcpuai230 - 111 mmol/L Remisol ChemCO2 [Moles/Vol]23 mmol/CEqqksi39 - 31 mmol/LRemisol ChemCreatinine [Mass/Vol]0.8 mg/dLNormal0.5 - 1.3 mg/dLRemisol WegwcPJK92 mL/min/1.73 t0Fvwfyy >=59mL/min/1.73 j2Cpxvift ChemGlucose [Mass/Vol]104 mg/dGBbakql23 - 199 mg/dL Remisol ChemPotassium [Moles/Vol]3.2 mmol/LLow3.5 - 5.3 mmol/LRemisol ChemSodium [Moles/Vol]134 mmol/XWzw464 - 145 mmol/LRemisol ChemUrea nitrogen [Mass/Vol]14 mg/dLNormal5 - 21 mg/dLRemisol ChemUrea nitrogen/Creatinine [Mass ratio]18 mg/mg Iaidqp94 - 20Remisol ChemHEMATOLOGYOrdered By: SYSTEM SYSTEM on 10-05-2023 Basophils/100 WBC (Bld)0.4 %Normal0.0 - 2.0 %Remisol HemeBasophils/Leukocytes Auto (Bld) [Pure # fraction]0.0 E9/LNormal0.0 - 0.2 E9/LRemisol HemeEosinophils (Bld) [#/Vol]0.0 E9/LNormal0.0 - 0.5 E9/LRemisol HemeEosinophils/100 WBC (Bld) 0.6 %Normal0.0 - 8.0 %Remisol HemeErythrocyte distribution width (RBC) [Ratio] 15.5 %High10.9 - 14.2 %Remisol HemeHematocrit (Bld) [Volume fraction]31.4 %Low 34.0 - 46.0 %Remisol HemeHemoglobin (Bld) [Mass/Vol]10.7 g/dLLow12.0 - 16.0 gm/dLRemisol HemeLymphocytes (Bld) [#/Vol]0.4 E9/LLow1.0 - 4.0 E9/LRemisol Heme Lymphocytes/100 WBC (Bld)5.9 %Low14.0 - 50.0 %Remisol HemeMCH (RBC) [Entitic mass]30.2 rmRqwlhy66.0 - 34.0 pgRemisol HemeMCHC (RBC) [Mass/Vol]34.1 g/dLNormal 31.4 - 36.0 gm/dLRemisol HemeMCV (RBC) [Entitic vol]88.4 ySSdjkju18.0 - 100.0 fL Remisol HemeMonocytes (Bld) [#/Vol]0.4 E9/LNormal0.2 - 1.0 E9/LRemisol Heme Monocytes/100 WBC (Bld)7.5 %Normal4.0 - 14.0 %Remisol HemeNeutrophils (Bld) [#/Vol]5.1 E9/LNormal2.0 - 7.5 E9/LRemisol HemeNeutrophils/100 WBC (Bld)85.6 % High36.0 - 75.0 %Remisol KtwwYlcqdtwe243.0 E9/APzgkfo659.0 - 500.0 E9/LRemisol HemePlatelet mean volume (Bld) [Entitic vol]7.4 fLNormal6.4 - 10.8 fLRemisol HemeRBC (Bld) [#/Vol]3.6 E12/LLow4.3 - 5.9 E12/LRemisol HemeWBC corrected for nucl RBC Auto (Bld) [#/Vol]6.0 E9/LNormal4.0 - 11.0 E9/LRemisol Heme Interdisciplinary Note - Case Manageron [id number] Note - Case ManagerInterdisciplinary Note - Filter Assembler Patient is awake and alert in bed, previously rounded with Dr. Bales. Pt is aware of plan to DC tomorrow. Pt is from home with daughter and she will transport at [place]. Medicare rights reviewed and second copy provided . PCP verified and insurance information reviewed and DME discussed. Contact inform ation provided and white board updated.NormalAvita Health System Bucyrus HospitalComment on above:Result Comment: Electronically Signed By: Jg GONZALEZ, Stacey\.br\Date and Time Signed: 10/05/23 11:50 EDTeGFRon 14-43-6255uQNH08 mL/min/1.73 k8Ksnrjr >=59[facility] HospitalComment on above:Order Comment: Order added by Discern Expert.Performed By: #### [id number] #### [facility] [address] [place] [address] [id number] By: SYSTEM SYSTEM on 67-88-8538Pjqox gap [Moles/Vol]14 mmol/LNormal6 - 16 mEq/LRemisol ChemCalcium [Mass/Vol]8.1 mg/dLLow 8.9 - 11.1 mg/dLRemisol ChemChloride [Moles/Vol]100 mmol/XJkw079 - 111 mmol/L Remisol ChemCO2 [Moles/Vol]23 mmol/TWbuuwj84 - 31 mmol/LRemisol ChemCobalamin (Vitamin B12) [Mass/Vol]677 pg/gSXlerxw78 - 1500 pg/mLRemisol ChemCreatinine [Mass/Vol]0.8 mg/dLNormal0.5 - 1.3 mg/dLRemisol YxnjkXIM64 mL/min/1.73 x5Aiqurx >=59mL/min/1.73 a3Svfgxdz ChemFolate [Mass/Vol]ng/mLNormal>=6.7ng/mLRemisol Chem Glucose [Mass/Vol]91 mg/sLDeumux31 - 199 mg/dLRemisol ChemMagnesium [Mass/Vol] 1.6 mg/dLNormal1.3 - 2.4 mg/dLRemisol ChemPotassium [Moles/Vol]3.5 mmol/LNormal 3.5 - 5.3 mmol/LRemisol ChemProcalcitonin0.14 ng/mLNormal0.00 - 0.50 ng/mL Remisol ChemComment on above:Interpretive Data: <0.5 ng/mL Low risk of severe sepsis and/or shock >2.0 ng/mL High risk of severe sepsis and/or shock Concentrations under 0.5 ng/mL do not exclude local infections or systemic infections in their initial stages (e.g.. under six hours from onset of illness). PCT concentrations between 0.5 and 2.0 ng/mL should be interpreted with consideration of the patient's history. In this range, it is recommended to retest PCT within 6 to 24 hours.Sodium [Moles/Vol]133 mmol/GNxe236 - 145 mmol/L Remisol ChemTSH Qn1.75 m[IU]/LNormal0.34 - 5.60 mcIU/mLRemisol ChemUrea nitrogen [Mass/Vol]14 mg/dLNormal5 - 21 mg/dLRemisol ChemUrea nitrogen/Creatinine [Mass ratio]18 mg/bhElewyw97 - 20Remisol ChemHEMATOLOGYOrdered By: SYSTEM SYSTEM on 95-34-4090Jypcicabsyl distribution width (RBC) [Ratio]15.7 %High10.9 - 14.2 % Remisol HemeHematocrit (Bld) [Volume fraction]33.1 %Low34.0 - 46.0 %Remisol Heme Hemoglobin (Bld) [Mass/Vol]11.2 g/dLLow12.0 - 16.0 gm/dLRemisol HemeMCH (RBC) [Entitic mass]30.6 kxPlnfyu68.0 - 34.0 pgRemisol HemeMCHC (RBC) [Mass/Vol]33.8 g/gYCicebp26.4 - 36.0 gm/dLRemisol HemeMCV (RBC) [Entitic vol]90.6 yVTuvjco07.0 - 100.0 fLRemisol IrxfExnblttk105.0 E9/ABcqwgz139.0 - 500.0 E9/LRemisol Heme Platelet mean volume (Bld) [Entitic vol]7.2 fLNormal6.4 - 10.8 fLRemisol HemeRBC (Bld) [#/Vol]3.7 E12/LLow4.3 - 5.9 E12/LRemisol HemeRBC size Nom (Bld)NORMAL *NA* (10/04/23 5:55 AM)Invalid Interpretation CodeRemisol HemeWBC corrected for nucl RBC Auto (Bld) [#/Vol]7.3 E9/LNormal4.0 - 11.0 E9/LRemisol HemeLaboratory - Microbiology and Antimicrobial susceptibilityOrdered By: Suri Lyles on 95-25-7884Jxxblbbe identified Respiratory culture Nom (Sput)Scant growth of Normal upper respiratory cary isolatedGuernsey Memorial HospitalMRSA DNA ALEXANDRU+probe Ql (Unsp spec)MRSA Positive. Result called to Staci Gonsales (3S) by [facility] and results read back for confirmation on 10/06/2023 11:42:14Guernsey Memorial HospitalMICRO OTHER TESTSOrdered By: Luis Calixto on 31-98-3338Askow COV Int NEG CtlPass (10/04/23 12:37 AM)NormalPARKSIDE [facility] Man SeroRapid COV Int POS CtlPass (10/04/23 12:37 AM)NormalPARKSIDE PSYCHIATRIC [facility] [place] Man SeroSARS-CoV+SARS-CoV-2 (COVID-19) Ag IA.rapid Ql (Resp)Not Detected 7 (10/04/23 12:37 AM)NormalNot DetectedPARKSIDE PSYCH[facility]ATR[facility] [place] Man SeroComment on above:Interpretive Data: The PayAlliesitor System for Rapid Detection of SARS-CoV-2 is a chromatographic digital immunoassay intended for the direct and qualitative detection of SARS-CoV-2 nucleocapsid antigens in nasal swabs from individuals who are suspected of COVID-19 by their healthcare provider withinthe first five days of the onset of [...] of proteins from SARS-CoV-2, not for any otherviruses or pathogens; and, in the [place], this test is only authorized for the duration of the declaration that circumstances exist justifying the authorization of emergency use of in vitro diagnostics for detection and/or diagnosis of the virus that causes COVID-19 under Section 564(b)(1) of the Act,21 U.S.C. 360bbb-3(b)(1), unless the authorization is terminated or revoked sooner.No Panel InformationOrdered By: Suri Lyles on 16-33-8623TX6+ White Blood Cells Occasional epithelial cells Occasional Gram Positive Cocci Occasional Gram Positive RodsGuernsey Memorial HospitalReference Laboratory TestingOrdered By: Generated DomainUser on 78-98-0670Vslspf Ab RPR Ql (S) Non-ReactiveInvalid Interpretation CodeNon ReactivePARKSIDE PSYCHIATR[facility] SendOutsSSComment on above:Result Comment: Performed at: [facility] [address] [place] [id number] PhD Roman VincentCHEMISTRYOrdered By: SYSTEM SYSTEM on 10-03-2023 Lactic Acid Lvl0.7 mmol/LNormal0.5 - 2.2 mmol/LRemisol ChemAlbumin [Mass/Vol]4.1 g/dLNormal3.3 - 5.0 gm/dLRemisol ChemAlbumin/Globulin [Mass ratio]1.4 {ratio} Normal1.1 - 2.2Remisol ChemALP [Catalytic activity/Vol]49 [iU]/nOgemor90 - 98 Int._Unit/LRemisol ChemALT No additional P-5'-P [Catalytic activity/Vol]11 [iU]/dNormal6 - 46 Int._Unit/LRemisol ChemAnion gap [Moles/Vol]12 mmol/LNormal6 - 16 mEq/LRemisol ChemAST [Catalytic activity/Vol]25 [iU]/dNormal5 - 43 Int._Unit/LRemisol ChemBilirubin [Mass/Vol]0.8 mg/dLNormal0.0 - 1.1 mg/dLRemisol ChemCalcium [Mass/Vol]9.5 mg/dLNormal8.9 - 11.1 mg/dLRemisol ChemChloride [Moles/Vol]99 mmol/GYbt495 - 111 mmol/LRemisol ChemCO2 [Moles/Vol]25 mmol/L Qmfesk75 - 31 mmol/LRemisol ChemCreatinine [Mass/Vol]0.8 mg/dLNormal0.5 - 1.3 mg/dLRemisol BqpubUXG93 mL/min/1.73 m4Jzxnwg>=59mL/min/1.73 t2Qbfhuqg Chem Globulin (S) [Mass/Vol]3.0 g/dLNormal1.4 - 4.0 gm/dLRemisol ChemGlucose [Mass/Vol]100 mg/uRLzubhk69 - 199 mg/dLRemisol ChemPotassium [Moles/Vol]4.1 mmol/LNormal3.5 - 5.3 mmol/LRemisol ChemProtein [Mass/Vol]7.1 g/dLNormal6.0 - 7.8 gm/dLRemisol ChemSodium [Moles/Vol]132 mmol/TGnx403 - 145 mmol/LRemisol Chem Troponin HS13.40 pg/oMArktzp08.10 - 27.10 pg/mLRemisol ChemComment on above: Interpretive Data: The 95% CI (Confidence Interval) PPV (Positive Predictive Value) for myocardial infarction in females is 38 pg/mL, in males 51 pg/mL. The results should be used in conjunction withclinical conditions of myocardial infarction. (Access High Sensitivity Troponin I Instructions For Use, Ra[facility], October 2017)Urea nitrogen [Mass/Vol]16 mg/dLNormal5 - 21 mg/dLRemisol ChemUrea nitrogen/Creatinine [Mass ratio]20 mg/utNrtytq52 - 20Remisol ChemCOAGULATION Ordered By: Luis Calixto on 02-47-8817rEUQ Coag (PPP) [Time]31.2 nXqcwch84.1 - 36.5 second(s)[facility] Auto CoagComment on above:Interpretive Data: Parameter 15 days - 4 weeks 1 - [...] the same coagulation reagent and instrumentation as [facility]. Currently there are no coagulation studies available worldwide for children to 14 days, andno normal ranges. Heparin therapeutic range (represented by Anti-Factor Xa activity of 0.2 - 0.4 U/mL) corresponds to PTT of 56.6 - 109.0 sec.INR Coag (PPP) [Relative time]1.14 {INR}Invalid Interpretation CodePARKSIDE PSYCHIATRIC HOS[facility]ITAL [facility] [place] Auto CoagComment on above:Interpretive Data: INR results are specifically intended to assess patients stabilized on long-term Anticoagulation therapy suggested INR s Less Intensive Anticoagulation 2.0 3.0 Conventional Range 3.0 4.5PT Coag (PPP) [Time]12.8 sHigh9.4 - 12.5 second(s)[facility] Auto CoagComment on above:Interpretive Data: 15 days - 4 weeks 1 - [...] the same coagulation reagent and instrumentation as [facility]. Currently there are no coagulation studies available worldwide for children to 14 days, andno normal ranges.HEMATOLOGYOrdered By: SYSTEM SYSTEM on 65-02-3067Mjhktfxyl/100 WBC (Bld)0.4 %Normal0.0 - 2.0 %Remisol HemeBasophils/Leukocytes Auto (Bld) [Pure # fraction]0.0 E9/LNormal0.0 - 0.2 E9/LRemisol HemeEosinophils (Bld) [#/Vol]0.0 E9/LNormal0.0 - 0.5 E9/LRemisol HemeEosinophils/100 WBC (Bld)0.1 %Normal0.0 - 8.0 %Remisol HemeErythrocyte distribution width (RBC) [Ratio]15.6 %High10.9 - 14.2 %Remisol HemeHematocrit (Bld) [Volume fraction]34.2 %Guokcs62.0 - 46.0 % Remisol HemeHemoglobin (Bld) [Mass/Vol]11.4 g/dLLow12.0 - 16.0 gm/dLRemisol Heme Lymphocytes (Bld) [#/Vol]0.7 E9/LLow1.0 - 4.0 E9/LRemisol HemeLymphocytes/100 WBC (Bld)8.7 %Low14.0 - 50.0 %Remisol HemeMCH (RBC) [Entitic mass]30.2 pgNormal 27.0 - 34.0 pgRemisol HemeMCHC (RBC) [Mass/Vol]33.4 g/wSAxvicl91.4 - 36.0 gm/dL Remisol HemeMCV (RBC) [Entitic vol]90.4 pTJynmka65.0 - 100.0 fLRemisol Heme Monocytes (Bld) [#/Vol]0.9 E9/LNormal0.2 - 1.0 E9/LRemisol HemeMonocytes/100 WBC (Bld)10.4 %Normal4.0 - 14.0 %Remisol HemeNeutrophils (Bld) [#/Vol]6.7 E9/L Normal2.0 - 7.5 E9/LRemisol HemeNeutrophils/100 WBC (Bld)80.4 %High36.0 - 75.0 % Remisol WrzaCqwyzkem538.0 E9/QCtbbhd673.0 - 500.0 E9/LRemisol HemePlatelet mean volume (Bld) [Entitic vol]7.6 fLNormal6.4 - 10.8 fLRemisol HemeRBC (Bld) [#/Vol] 3.8 E12/LLow4.3 - 5.9 E12/LRemisol HemeWBC corrected for nucl RBC Auto (Bld) [#/Vol]8.3 E9/LNormal4.0 - 11.0 E9/LRemisol HemeNo Panel InformationOrdered By: ANGPROCESSSERVER MICROBIOLOGY on 42-69-6490Oroys Culture CharcoalNo growth at 3 days. Final to follow at 7 days.[facility]sey Memorial HospitalBlood Culture CharcoalNo growth at 3 days. Final to follow at 7 days.[facility] Memorial HospitalURINALYSISOrdered By: SYSTEM SYSTEM on 82-11-3393Qmdujapc Auto Ql (U)Trace /HPFNormalTrace/HPFPARKSIDE [facility]YCH[facility] UA Auto SSBilirubin Ql (U)NegativeNormalNegativemg/dL [facility] UA Auto SSClarity (U)Clear (10/03/23 7:51 PM)NormalClearFMUSCOGEE UA Auto SSColor (U)Light-Yellow 1 (10/03/23 7:51 PM)NormalYellowPARKSIDE PSYCHIATRIC [facility] [place] UA Auto SSComment on above:Interpretive Data: Microscopic readings are only performed on those samples that meet specific criteria set forth by [facility].Glucose Ql (U) NegativeNormalNegativemg/dLPARKSIDE PSYCH[facility]ATRIC [facility] UA Auto SSHemoglobin Auto test strip (U) [Mass/Vol]NegativeNormalNegativemg/dLPARKSIDE PSYCH[facility]ATRIC [facility] [place] UA Auto SSKetones Auto test strip Ql (U)1+ mg/dLInvalid Interpretation CodeNegativemg/dLFTMC UA Auto SSLeukocyte esterase Auto test strip Ql (U)NegativeNormalNegativeLeu/uLFT UA Auto SSMucus Auto Ql (U)Trace graded/LPFNormalNegativegraded/LPFFTMC UA Auto SSNitrite Auto test strip Ql (U)NegativeNormalNegativemg/dLFTMC UA Auto SSpH (U)8.0 *NA* (10/03/23 7:51 PM)Invalid Interpretation Code5.0 - 9.0[facility] UA Auto SSProtein Ql (U)1+ mg/dLInvalid Interpretation CodeNegativemg/dLFT UA Auto SSRBC Ql (U)4-20 graded/HPFInvalid Interpretation Code0-3graded/HPFFTMC UA Auto SSSpecific gravity (U) [Rel density]1.012 *NA* (10/03/23 7:51 PM)Invalid Interpretation Code1.005 - 1.030[facility] UA Auto SS Urobilinogen (U) [Mass/Vol]NegativeNormalNegativemg/dLFT UA Auto SSWBC Auto (Urine sed) [#/Area]0-5 graded/HPFNormal0-5graded/HPFFTMC UA Auto SSURINALYSIS Ordered By: Stacia Dwyer on 78-16-4962SQ Spec DescClean Catch (10/03/23 7:51 PM)NormalPARKSIDE PSYCHIATRIC [facility] UA Auto SS yag CAPSULOTOMY OD (RIGHT EYE)on 94-49-7179Sljgzjpko ClinicCNPNon 27-87-1148LDLKEwygxbise (OPHTMN) CARLY MARCELINO ([id number]) 1940 F Date Time Provider Department 09/17/23 ROSS MOODY During your visit today, we recorded the following information about you: Ross Moody MD 09/17/2023 6:06 PM Signed Patient called to ask if she needed to fast prior to her YAG for a PCO tomorrow. She was told no fasting necessary and voiced understanding. Ross Moody MD Ophthalmology Resident Allergies As of Date: 09/17/2023 Noted Allergy Reaction HYDANTOINS 05/01/2003 10 - [...] ACID 11/06/2012 5 - Intolerance Date Reviewed: 06/29/2023 Reviewed by: Ivonne Isabel MA - Fully Assessed Prescriptions as of 09/17/2023 - amoxicillin-clavulanate potassium (AUGMENTIN) 875-125 mg per tablet - famotidine (PEPCID) 40 mg tablet Take 40 mg by mouth daily at bedtime. - spironolactone (ALDACTONE) 25 mg tablet Take 1 tablet by mouth every afternoon. - levETIRAcetam XR (KEPPRA XR) 500 mg 24 hr tablet Take 1 tablet by mouth daily at bedtime. - albuterol HFA (PROVENTIL HFA, VENTOLIN HFA) 90 mcg/actuation inhaler Inhale 2 Puffs as instructed every 4 hours as needed. - ALPRAZolam (XANAX) 0.25 mg tablet Take 1 tablet by mouth every 12 hours. - DOCOSAHEXAENOIC ACID ORAL Take 1 capsule by mouth once daily. - ferrous sulfate 325 mg (65 mg iron) tablet Take 325 mg by mouth. - nitroglycerin sublingual (NITROQUICK) 0.4 mg SL [...] by ORAL/FEEDING TUBE route once daily. - metoprolol tartrate, short acting, (LOPRESSOR) 25 mg tablet Take 1/2 tablet by mouth every 12 hours. - pravastatin (PRAVACHOL) 40 mg tablet Take 1 tablet by mouth daily at bedtime. - triamterene-hydroCHLOROthiazide (DYAZIDE) 37.5-25 mg per capsule Take 1 capsule by mouth once daily. - montelukast (SINGULAIR) 10 mg tablet Take 10 mg by mouth once daily. - omega 9-edw-cyl-fish oil (FISH OIL) 100-160-1,000 mg cap Take by mouth. - Walker misc front wheeled walker dx left knee hematoma, Print Requisition, Compound - multivitamin (MULTIPLE VITAMINS ORAL) Refill(s) 0 - baclofen (LIORESAL) 10 mg tablet Baclofen Baclofen Active 5 MG Oral Daily at bedtime August 01, 2017 3:16pm 08-01-2017 [facility] ([id number]) - cetirizine 10 mg ODT Cetirizine Cetirizine Active 10 MG Oral Daily August 01, 2017 3:16pm 08-01-2017 [facility] ([id number]) - Cholecalciferol, Vitamin D3, (VITAMIN D-3) 2,000 [...] times daily. Problem List As Of Date 09/17/2023 Noted Resolved ROTATOR CUFF RUPTURE [M75.120] 05/01/2003 Fitting and adjustment of orthopedic device [Z4*09/20/2011 ANKLE INSTABILITY [M24.873, M24.876] 01/01/2012 DERANGEMENT ANKLE/FOOT [M24.173, M24.176] 01/01/2012 Difficulty in walking [R26.2] 01/01/2012 LOOSE BODY ANKLE/FOOT [M24.073, M24.08] 01/01/2012 Follow-up examination, following unspecified liriano*01/01/2012 Rotator cuff tear arthropathy of both shoulders*05/25/2014 Glenohumeral arthritis [M19.019] 05/25/2014 Plantar fasciitis [M72.2] 10/15/2014 Difficulty walking [R26.2] 10/15/2014 Pain in left foot [M79.672] 10/15/2014 Heel pain, chronic [M79.673, G89.29] 10/15/2014 Heel spur [M77.30] 10/15/2014 Right hand tendonitis [M77.8] 07/19/2017 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 Retinal hemorrhage of left eye [H35.62] 01/27/2020 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 Contusion of right foot [S90.31XA] 05/19/2022 Enthesopathy of foot [M77.8] 05/19/2022 Tendonitis, Achilles, left [M76.62] 05/19/2022 Calcaneal spur of left foot [M77.32] (more content not included)...Normal [facility] HospitalBasophils Auto (Bld) [#/Vol]on 47-99-5431Fphghqgip (Bld) [#/Vol]0.0 10 3/uL0.0-0.1FWilson Memorial HospitalBasophils/100 WBC Auto (Bld)on 49-34-4935Gixrszcpq/100 WBC (Bld)0.1 %Low0.2-2.0[facility] Medical CenterEosinophils/100 WBC Auto (Bld)on 09-08-2023 Eosinophils/100 WBC (Bld)1.7 %0.9-7.0[facility] Erythrocyte distribution width Auto (RBC) [Ratio]on 59-29-5845Ymtqaxeleas distribution width (RBC) [Ratio]15.0 %11.0-15.0[facility] Estimated glomerular filtration rate (GFR) non- Americanon 09-08-2023 GFR/1.73 sq M.predicted among non-blacks MDRD (S/P/Bld) [Vol rate/Area] mL/min/{1.73_m2}>=60[facility] Medical CenterHematocrit Auto (Bld) [Volume fraction]on 42-61-0074Yfbpqublsw (Bld) [Volume fraction]33.7 %Low 36.0-48.0[facility] Medical CenterHemoglobin [Mass/volume] in Bloodon 56-91-8009Iitukoqcrz (Bld) [Mass/Vol]10.2 g/dLLow12.0-16.0[facility] CenterLaboratory - Chemistry and Chemistry - challengeon 09-08-2023 Calcium [Mass/Vol]9.0 mg/dL8.5-10.1FWilson Memorial HospitalChloride [Moles/Vol]101 mmol/F75-119TvncisttjCincinnati Children'S Hospital Medical CenterCO2 [Moles/Vol]30.6 mmol/L21.0-32.0[facility] Medical CenterCreatinine [Mass/Vol]0.73 mg/dL 0.55-1.02[facility] Medical CenterGFR/1.73 sq M.predicted MDRD (S/P/Bld) [Vol rate/Area]mL/min/{1.73_m2}>=60[facility] Medical CenterGlucose [Mass/Vol]106 mg/cN07-739HxwkamzfrCincinnati Children'S Hospital Medical CenterPotassium [Moles/Vol] 4.1 mmol/L3.5-5.1FOhioHealth Riverside Methodist Hospitalodium [Moles/Vol]137 mmol/L 136-145[facility] Medical CenterUrea nitrogen [Mass/Vol]14.0 mg/dL 7.0-18.0[facility] Medical CenterUrea nitrogen/Creatinine [Mass ratio] 19.2 mg/mgCincinnati Children'S Hospital Medical CenterLaboratory - Hematology and Cell countson 98-55-9127Ngprocuw granulocytes/100 WBC (Bld)1.0 %High0.0-0.5FWilson Memorial HospitalLaboratory - Microbiology and Antimicrobial susceptibilityon 37-63-4948YTKU-CoV-2 (COVID-19) RNA ALEXANDRU+probe Ql (Unsp spec) NegativeNEGATIVECincinnati Children'S Hospital Medical CenterComment on above:This test has not been FDA cleared or approved, but has beenauthorized by the FDA under an Emergency Use Authorization(EUA) for use by authorized laboratories certified underIA that meet the requirements to perform moderate or highcomplexity testing. This test has been authorized only forthe detection of proteins from SARS-CoV-2, not for any otherviruses or pathogens. The emergency use of this t est isauthorized for the duration of the declaration thatcircumstances exist justifying the authorization ofemergency use of in vitro diagnostic tests for detectionand/or diagnosis of Covid-19 under section 564(b)(1) of theAct, 21 U.S.C. 360bbb-3(b)(1), unless the declaration isterminated or authorization is revoked sooner.Leukocytes [#/volume] corrected for nucleated erythrocytes in Blood by Automated counon 22-24-5184RBR corrected for nucl RBC Auto (Bld) [#/Vol]7.7 10 3/uL4.0-11.0[facility] Medical CenterLymphocytes Auto (Bld) [#/Vol]on 17-49-8665Fugjusexvjq (Bld) [#/Vol]0.9 10 3/uLLow1.2-3.8 [facility] Medical CenterLymphocytes/100 WBC Auto (Bld)on 09-08-2023 Lymphocytes/100 WBC (Bld)11.2 %Low20.5-60.0[facility] HospitalH Auto (RBC) [Entitic mass]on 37-17-6998PPI (RBC) [Entitic mass]29.0 pg26.7-34.0 [facility] HospitalHC Auto (RBC) [Mass/Vol]on 01-67-2618QSRM (RBC) [Mass/Vol]30.3 g/dL29.9-35.2FFulton County Health CenterV Auto (RBC) [Entitic vol]on 84-74-7707ICT (RBC) [Entitic vol]95.7 fL81.0-99.0[facility] CenterMonocytes Auto (Bld) [#/Vol]on 10-85-3960Nfaapfypi (Bld) [#/Vol]0.6 10 3/uL0.3-0.8[facility] CenterMonocytes/100 WBC Auto (Bld)on 67-75-6751Dxqqkedxl/100 WBC (Bld)8.4 %1.7-12.0[facility] CenterNeutrophils Auto (Bld) [#/Vol]on 08-26-0105Yvoefisprrn (Bld) [#/Vol]5.9 10 3/uL1.4-6.5FWilson Memorial HospitalNeutrophils/100 WBC Auto (Bld)on 40-53-7318Edmefszgsvr/100 WBC (Bld)77.6 %High43.0-75.0[facility] CenterNo Panel Informationon 91-10-2366Gngwcyga I High Rcleymbonbv73.0 pg/mL4.0-51.3FWilson Memorial HospitalComment on above: CUT-OFF POINTS HAVE BEEN ESTABLISHED BASED ON THE FOURTHUNIVERSAL DEFINITION OF MYOCARDIAL INFARCTION. THE UPPERREFERENCE LIMIT (URL) OF TROPONIN, DEFINED THE 99THPERCENTILE OF cTnI DISTRIBUTION IN A REFERENCE POPULATION,HAS BEEN CONFIRMED THE DECISION THRESHOLD FOR MIDIAGNOSIS.99TH PERCENTILE = 51.4 PG/MLNOTE: HIGH-SENSITIVITY TROPONIN ASSAY IS NOT INTENDED TO BEUSED IN ISOLATION BUT SHOULD BE INTERPRETED IN CONJUNCTIONWITH OTHER DIAGNOSTIC AND CLINICAL INFORMATION.Eosinophils # (Auto)0.1 10 3/uL0.0-0.7FWilson Memorial HospitalImmature Granulocyte # (Auto)0.08 10 3/uLHigh0.00-0.03[facility] Medical CenterPlatelet mean volume Auto (Bld) [Entitic vol]on 20-18-2654Odeichtk mean volume (Bld) [Entitic vol]8.6 fLLow9.5-13.5FWilson Memorial HospitalPlatelets Auto (Bld) [#/Vol]on 33-16-1733Sexvapwak (Bld) [#/Vol]242 10 3/qW288-132IftphjxohCincinnati Children'S Hospital Medical CenterRBC Auto (Bld) [#/Vol] on 99-86-1318PTW (Bld) [#/Vol]3.52 10 6/uLLow4.20-5.40[facility] Memorial Hospitalerum or plasma anion gap determinationon 77-82-1176Jrlnj gap [Moles/Vol] 9.5 mmol/LFWilson Memorial HospitalCT Head WO contrastOrdered By: Marky Rg on 42-46-2184NG AFP714.03 (mGy.cm)[facility] Work Phone: cT SeriesTopogram,HEAD WOMetroHealth Work Phone: cTDI VOL0.17 (mGy),26.68 (mGy)[facility] Work Phone: PHANTOM TYPEIEC Head Dosimetry Phantom,IEC Head Dosimetry PhantomMetroHealth Work Phone: [facility] Work Phone: cT Head WO contraston [id number], Kyle, MD - 09/05/2023 EXAMINATION: CT HEAD W/O CONTRAST 09/05/2023 09:27 AM CLINICAL HISTORY: SDH evaluation ASSOCIATED DIAGNOSIS: SDH (subdural hematoma) (HCC) ORDERING PROVIDER: DERICK EDWARDS TECHNOLOGISTS NOTE: COMPARISON: CT of the brain 08/14/2023 TECHNIQUE: Thin axial imaging of the head was performed without intravenous contrast. FINDINGS: Postprocedural changes of left frontal and parietal katty holes for subdural hematoma evacuation andleft middle meningeal artery embolization. Residual hypodense left [...] subdural hematoma evacuation and middle meningeal artery embolizationwithout evidence of rebleeding since 08/14/2023. Residual thin hypodense subdural hematoma over the left cerebral convexity without significant mass effect. MACRO: None [facility] Study observation (narrative)[facility] ShawED Note-Physicianon [id number] Note-PhysicianBasic Information Time Seen: Marino DEL RIO, Aurea AlexChinmay 08/12/2023 16:04 Chief Complaint Pt came with the squad d/t AMS and increased confusion that had been worst since . Pt fell 2 wks ago and got Subdural hematoma. Hx of seizure and dementia. No weakness, no numbness, no dizziness, no speech or vision changes. History of Present Illness Patient is a 83-year-old female with a history of hypertension, seizures, and subdural hematoma whopresents via EMS from [facility] with 3 days of worsening altered mental status and confusion. Per staff, the patient is typically A&O x 4 however her orientation has been deterioratingfor the past 3 days. Per family, the patient suffered a subdural hematoma 2 weeks ago after a fall in which she was transferred to [facility] for observation and started on enoxaparin. Family statesthey saw the patient on Sunday and Sunday [...] history of hypertension, seizures, and subdural hematoma whopresents via EMS from [facility] with 3 days of worsening altered mental status and confusion. GCS 14 due to confusion. Ubyej-hm-wqmd glucose is 133. Troponin is 5.10. Red blood cell is 3.3. Chest x- ray showed no acute changes from prior imaging. CT head is showing an acute on chronic subdural hematoma with midline shift. Patient was previously at [facility] due to a subdural hematoma following a fall and was placed on enoxaparin 30 mg. This case was discussed with our traumasurgeon, Dr. Cao, who reviewed the imaging and advised the patient be transferred back to [facility]. She wanted the patient started on 3% saline 500 cc bolus. The case was discussed with [facility] and the patient was accepted by Dr. Washburn. Patient will be flown to [facility]. The casewas discussed with the family and all questions [...] Discharge Condition Stable Discharge Disposition Transfer to [facility] Discharge Prescription List Prescriptions No active prescription medications Follow-up No qualifying data available Attestation Patient seen and evaluated by the physician workforce development assistant. Attending physician was present in the emergency department and supervised care. This visit was performed by both the physician and an APC. I performed all aspects of the MDM as documented. This report was transcribed using voice recognition software. Every effort was made to ensure accuracy, however, inadvertently computerized transcrip (more content not included)...[facility] – JacksonComment on above:Result Comment: Electronically Signed By: Marino DEL RIO, Aurea Guido\.br\Date and Time Signed: 08/11/2416:24 EDT\.br\Electronically Co-Signed By: James Nguyen MD\.br\Date and Time Co-Signed: 08/28/23 09:06 EDTBasic metabolic 2000 panelon 49-97-3410Thezi gap [Moles/Vol]12 mmol/L10 - 20[facility]HealthCalcium [Mass/Vol]9.0 mg/dL8.6 - 10.3 mg/dLMetroHealthChloride [Moles/Vol]102 mmol/L98 - 107 mmol/L [facility]HealthCO2 [Moles/Vol]26 mmol/L21 - 31 mmol/LMetroHealthCreatinine [Mass/Vol]0.59 mg/dLLow0.60 - 1.20 mg/dLMetroHealthGFR/1.73 sq M.predicted CKD- EPI (S/P/Bld) [Vol rate/Area]89- PINFMetroHealthComment on above:2020 CKD EPI Equation using Creatinine without Race [...] Med 2020 Vol. 385 Issue 19 Pages 6269-6024 Glucose [Mass/Vol]104 mg/dL74 - 109 mg/dLMetroHealthInterpretation and review of laboratory resultsAbnormalMetroHealthPotassium [Moles/Vol]4.1 mmol/L3.5 - 5.0 mmol/LMetroHealthSodium [Moles/Vol]136 mmol/L136 - 145 mmol/LMetroHealthUrea nitrogen [Mass/Vol]25 mg/dL7 - 25 mg/dLMetroHealthCBC panel Auto (Bld)on 54-98-7207Evnzphohbbv distribution width (RBC) [Ratio]14.5 %11.5 - 14.5 % MetroHealthHematocrit (Bld) [Volume fraction]29.0 %Low36.0 - 46.0 %[facility] Hemoglobin (Bld) [Mass/Vol]9.5 g/dLLow12.0 - 15.0 g/dLMetroHealthInterpretation and review of laboratory resultsAbnormalMetroHealthMCH (RBC) [Entitic mass]29.8 pg26.0 - 34.0 pgMetroHealthMCHC (RBC) [Mass/Vol]32.6 g/dL32.0 - 35.9 g/dL [facility]HealthMCV (RBC) [Entitic vol]91 fL80 - 100 fLMetroHealthPlatelet mean volume (Bld) [Entitic vol]6.9 fLLow7.5 - 11.2 fLMetroHealthPlatelets (Bld) [#/Vol]268 10*3/uL150 - 400 K/uLMetroHealthRBC (Bld) [#/Vol]3.18 10*6/uLLow [facility]HealthWBC (Bld) [#/Vol]5.8 10*3/uL4.5 - 11.5 K/uLMetroHealthMetroHealth MAGNESIUMon 91-08-2057Iuvbfwnjj [Mass/Vol]2.2 mg/dL1.9 - 2.7 mg/dLMetroHealthNo Panel Informationon 86-79-2833Etewevjpongtmh and review of laboratory results NormalMetroHealthMetroHealthPHOSPHORUSon 72-33-5082Mytrjejwg [Mass/Vol]3.5 mg/dL 2.5 - 5.0 mg/dLMetroHealthXR Abdomen APon 29-05-2494HXRBTXJGDTY: XR ABDOMEN AP 1 VIEW 08/22/2023 10:59 PM CLINICAL HISTORY: Step 2 of Corpak 2 Step process ASSOCIATED DIAGNOSIS: ORDERING PROVIDER: BECKY SALDANA TECHNOLOGISTS NOTE: COMPARISON: XR ABDOMEN AP 1 VIEW 08/22/2023, 3:06 PM FINDINGS: IMPRESSION: MALPOSITION OF CORPAK: Corpak sidehole is just beyond the gastroesophageal junction and advancementa minimum of 5 cm is recommended. Collegial Note provided via [email or web address] to Sunitha Amaro with acknowledgment. MACRO: None Artem Zamarripa MD - 08/23/2023 EXAMINATION: XR ABDOMEN AP 1 VIEW 08/22/2023 10:59 PM CLINICAL HISTORY: Step 2 of Corpak 2 Step process ASSOCIATED DIAGNOSIS: ORDERING PROVIDER: BECKY SALDANA TECHNOLOGISTS NOTE: COMPARISON: XR ABDOMEN AP 1 VIEW 08/22/2023, 3:06 PM FINDINGS: IMPRESSION: MALPOSITION OF CORPAK: Corpak sidehole is just beyond the gastroesophageal junction and advancementa minimum of 5 cm is recommended. Collegial Note provided via [email or web address] to Sunitha Amaro with acknowledgment. MACRO: None MetroHealthMetroHealthBasic metabolic 2000 panelon 79-65-5510Cvvww gap [Moles/Vol]10 mmol/L10 - 20Met[facility]HealthCalcium [Mass/Vol]8.8 mg/dL8.6 - 10.3 mg/dLMetroHealthChloride [Moles/Vol]104 mmol/L98 - 107 mmol/LMetroHealthCO2 [Moles/Vol]27 mmol/L21 - 31 mmol/LMetroHealthCreatinine [Mass/Vol]0.61 mg/dL0.60 - 1.20 mg/dLMetroHealthGFR/1.73 sq M.predicted CKD-EPI (S/P/Bld) [Vol rate/Area]88- PINFMetroHealthComment on above:2020 CKD EPI Equation using Creatinine without Race [...] Diagnosing Kidney Disease. AmericanJournal of Kidney Diseases 202;79(2):268-88.e1. 2. N Engl J Med 1 Vol. 385 Issue 19 Pages 4552-4508 Glucose [Mass/Vol]100 mg/dL74 - 109 mg/dLMetroHealthInterpretation and review of laboratory resultsAbnormalMetroHealthPotassium [Moles/Vol]4.2 mmol/L3.5 - 5.0 mmol/LMetroHealthSodium [Moles/Vol]137 mmol/L136 - 145 mmol/LMetroHealthUrea nitrogen [Mass/Vol]30 mg/dLHigh7 - 25 mg/dLMetroHealthCBC panel Auto (Bld)on 19-41-8914Tpyybjllnol distribution width (RBC) [Ratio]15.1 %High11.5 - 14.5 % MetroHealthHematocrit (Bld) [Volume fraction]28.4 %Low36.0 - 46.0 %[facility] Hemoglobin (Bld) [Mass/Vol]9.2 g/dLLow12.0 - 15.0 g/dLMetroHealthInterpretation and review of laboratory resultsAbnormalMetroHealthMCH (RBC) [Entitic mass]29.5 pg26.0 - 34.0 pgMetroHealthMCHC (RBC) [Mass/Vol]32.2 g/dL32.0 - 35.9 g/dL [facility]MCV (RBC) [Entitic vol]91 fL80 - 100 fLMetroHealthPlatelet mean volume (Bld) [Entitic vol]6.8 fLLow7.5 - 11.2 fLMetroHealthPlatelets (Bld) [#/Vol]285 10*3/uL150 - 400 K/uLMetroHealthRBC (Bld) [#/Vol]3.11 10*6/uLLow [facility]HealthWBC (Bld) [#/Vol]6.6 10*3/uL4.5 - 11.5 K/uLMetroHealthMetroHealth MAGNESIUMon 73-37-6879Ndrhceripuusfd and review of laboratory resultsAbnormal MetroHealthMagnesium [Mass/Vol]1.8 mg/dLLow1.9 - 2.7 mg/dLMetroHealthMetroHealth No Panel Informationon 56-09-9663ZmapxZxhvhaQSRZHWUFOWza 08-22-2023 Interpretation and review of laboratory resultsNormalMetroHealthPhosphate [Mass/Vol]3.0 mg/dL2.5 - 5.0 mg/dLMetroHealthXR Abdomen APon 58-65-6869Rjelfddha Study observation (narrative)MetroHealthEXAMINATION: XR ABDOMEN AP 1 VIEW 08/22/2023 02:52 PM CLINICAL HISTORY: evaluate corpak location ASSOCIATED DIAGNOSIS: ORDERING PROVIDER: JOHANN AMANDA NOTE: COMPARISON: 08/16/2023 FINDINGS: Corpak feeding tube is demonstrated. The tip is in a position in the region of first portion of theduodenum or pyloric channel area. Bowel pattern is nonobstructive and nonspecific. IMPRESSION: Corpak tube is advanced in the region of pyloric channel or first portion of the duodenum. MACRO: None ABIGAILSamantha riddle MD - 08/22/2023 EXAMINATION: XR ABDOMEN AP 1 VIEW 08/22/2023 02:52 PM CLINICAL HISTORY: evaluate corpak location ASSOCIATED DIAGNOSIS: ORDERING PROVIDER: JOHANN AMANDA NOTE: COMPARISON: 08/16/2023 FINDINGS: Corpak feeding tube is demonstrated. The tip is in a position in the region of first portion of theduodenum or pyloric channel area. Bowel pattern is nonobstructive and nonspecific. IMPRESSION: Corpak tube is advanced in the region of pyloric channel or first portion of the duodenum. MACRO: None [facility]HealthRadiology Study observation (narrative)[facility]XR Abdomen AP Ordered By: Samantha Harmon on 49-52-3224FeyoiCieulz Work Phone: basic metabolic 2000 panelon 62-84-0375Zwluc gap [Moles/Vol]12 mmol/L10 - 20[facility]HealthCalcium [Mass/Vol]9.2 mg/dL8.6 - 10.3 mg/dLMetroHealthChloride [Moles/Vol]101 mmol/L98 - 107 mmol/LMetroHealthCO2 [Moles/Vol]29 mmol/L21 - 31 mmol/LMetroHealthCreatinine [Mass/Vol]0.61 mg/dL0.60 - 1.20 mg/dLMetroHealthGFR/1.73 sq M.predicted CKD-EPI (S/P/Bld) [Vol rate/Area]88- PINFMetroHealthComment on above:2020 CKD EPI Equation using Creatinine without Race [...] Med 2020 Vol. 385 Issue 19 Pages 6414-0166 Glucose [Mass/Vol]100 mg/dL74 - 109 mg/dLMetroHealthInterpretation and review of laboratory resultsAbnormalMetroHealthPotassium [Moles/Vol]4.1 mmol/L3.5 - 5.0 mmol/LMetroHealthSodium [Moles/Vol]138 mmol/L136 - 145 mmol/LMetroHealthUrea nitrogen [Mass/Vol]29 mg/dLHigh7 - 25 mg/dLMetroHealthCBC panel Auto (Bld)on 08-03-4860Ztusoqthado distribution width (RBC) [Ratio]14.9 %High11.5 - 14.5 % [facility]HealthHematocrit (Bld) [Volume fraction]27.4 %Low36.0 - 46.0 %[facility] Hemoglobin (Bld) [Mass/Vol]9.1 g/dLLow12.0 - 15.0 g/dLMetroHealthInterpretation and review of laboratory resultsAbnormalMetroHealthMCH (RBC) [Entitic mass]30.3 pg26.0 - 34.0 pgMetroHealthMCHC (RBC) [Mass/Vol]33.2 g/dL32.0 - 35.9 g/dL [facility]MCV (RBC) [Entitic vol]91 fL80 - 100 fLMetroHealthPlatelet mean volume (Bld) [Entitic vol]7.7 fL7.5 - 11.2 fLMetroHealthPlatelets (Bld) [#/Vol] 296 10*3/uL150 - 400 K/uLMetroHealthRBC (Bld) [#/Vol]3.00 10*6/uLLowMetroHealth WBC (Bld) [#/Vol]7.0 10*3/uL4.5 - 11.5 K/uLMetroHealthMetroHealthMAGNESIUM Ordered By: Giana Rodríguez on 81-33-4642Wmgpehavcxjebc and review of laboratory resultsAbnormalMetroHealthMagnesium [Mass/Vol]2.9 mg/dLHigh1.9 - 2.7 mg/dL MetroHealthMetroHealthNo Panel Informationon 96-32-1448MvvcqUffyoyUMRGPPUBGYnw 82-80-4665Wktifsomcfwjiy and review of laboratory resultsNormalMet[facility]Health Phosphate [Mass/Vol]3.7 mg/dL2.5 - 5.0 mg/dLMetroHealthBasic metabolic 2000 panelon 79-04-3145Luldq gap [Moles/Vol]13 mmol/L10 - 20[facility]HealthCalcium [Mass/Vol]9.0 mg/dL8.6 - 10.3 mg/dLMetroHealthChloride [Moles/Vol]104 mmol/L98 - 107 mmol/LMetroHealthCO2 [Moles/Vol]26 mmol/L21 - 31 mmol/LMet[facility]Health Creatinine [Mass/Vol]0.49 mg/dLLow0.60 - 1.20 mg/dLMetroHealthGFR/1.73 sq M.predicted CKD-EPI (S/P/Bld) [Vol rate/Area]93- PINFMetroHealthComment on above:2020 CKD EPI Equation using Creatinine without Race [...] Med 1 Vol. 385 Issue 19 Pages 1581-3304 Glucose [Mass/Vol]111 mg/cEPwbo17 - 109 mg/dLMetroHealthPotassium [Moles/Vol]3.9 mmol/L3.5 - 5.0 mmol/LMetroHealthSodium [Moles/Vol]139 mmol/L136 - 145 mmol/L [facility]HealthUrea nitrogen [Mass/Vol]22 mg/dL7 - 25 mg/dLMetroHealthCBC panel Auto (Bld)on 47-84-6241Duajuskjzhy distribution width (RBC) [Ratio]14.3 %11.5 - 14.5 %[facility]roHealthHematocrit (Bld) [Volume fraction]28.8 %Low36.0 - 46.0 %[facility] Hemoglobin (Bld) [Mass/Vol]9.5 g/dLLow12.0 - 15.0 g/dLMetroHealthInterpretation and review of laboratory resultsAbnormalMetroHealthMCH (RBC) [Entitic mass]30.2 pg26.0 - 34.0 pgMetroHealthMCHC (RBC) [Mass/Vol]33.0 g/dL32.0 - 35.9 g/dL [facility]MCV (RBC) [Entitic vol]92 fL80 - 100 fLMetroHealthPlatelet mean volume (Bld) [Entitic vol]7.1 fLLow7.5 - 11.2 fLMetroHealthPlatelets (Bld) [#/Vol]263 10*3/uL150 - 400 K/uLMetroHealthRBC (Bld) [#/Vol]3.15 10*6/uLLow [facility]HealthWBC (Bld) [#/Vol]7.4 10*3/uL4.5 - 11.5 K/uLMetroHealthMetroHealthCNPN on 29-86-2005VVZACaokuqnhs (NEURST) CARLY MARCELINO ([id number]) 1940 F [place] Date Time Provider Department 08/20/23 DEIDRE PETER During your visit today, we recorded the following information about you: Deidre Peter 08/20/2023 12:20 PM Signed MODIFIED TOM SCORE POST-DISCHARGE Telephone Visit Patient Name: Carly Marcelino Today's date: August 20, 2023 Date of discharge: May 07, 2023 Person giving information: N/A Contact information: [phone] Contact attempt: #3 Patient discharge location: Home Patient current location: Home Presentation to ED or readmission after discharge: No Modified Lancaster Score: 90 days post discharge: 7 = Unable to reach patient/caregiver. Mortality: No Signature: Deidre Peter August 20, 2023 12:16 PM Allergies As of Date: 08/20/2023 Noted Allergy Reaction HYDANTOINS 05/01/2003 10 - [...] ACID 11/06/2012 5 - Intolerance Date Reviewed: 06/29/2023 Reviewed by: Ivonne Isabel MA - Fully Assessed Reason for Visit: Outcomes [0168] Cmt: 90 day mRS Prescriptions as of 08/20/2023 - amoxicillin-clavulanate potassium (AUGMENTIN) 875-125 mg per tablet - famotidine (PEPCID) 40 mg tablet Take 40 mg by mouth daily at bedtime. - spironolactone (ALDACTONE) 25 mg tablet Take 1 tablet by mouth every afternoon. - levETIRAcetam XR (KEPPRA XR) 500 mg 24 hr tablet Take 1 tablet by mouth daily at bedtime. - albuterol HFA (PROVENTIL HFA, VENTOLIN HFA) 90 mcg/actuation inhaler Inhale 2 Puffs as instructed every 4 hours as needed. - ALPRAZolam (XANAX) 0.25 mg tablet Take 1 tablet by mouth every 12 hours. - DOCOSAHEXAENOIC ACID ORAL Take 1 capsule by mouth once daily. - ferrous sulfate 325 mg (65 mg iron) tablet Take 325 mg by mouth. - nitroglycerin sublingual (NITROQUICK) 0.4 mg SL [...] by ORAL/FEEDING TUBE route once daily. - metoprolol tartrate, short acting, (LOPRESSOR) 25 mg tablet Take 1/2 tablet by mouth every 12 hours. - pravastatin (PRAVACHOL) 40 mg tablet Take 1 tablet by mouth daily at bedtime. - triamterene-hydroCHLOROthiazide (DYAZIDE) 37.5-25 mg per capsule Take 1 capsule by mouth once daily. - montelukast (SINGULAIR) 10 mg tablet Take 10 mg by mouth once daily. - omega 6-gwr-snp-fish oil (FISH OIL) 100-160-1,000 mg cap Take by mouth. - Walker misc front wheeled walker dx left knee hematoma, Print Requisition, Compound - multivitamin (MULTIPLE VITAMINS ORAL) Refill(s) 0 - baclofen (LIORESAL) 10 mg tablet Baclofen Baclofen Active 5 MG Oral Daily at bedtime August 01, 2017 3:16pm 08-01-2017 [facility] ([id number]) - cetirizine 10 mg ODT Cetirizine Cetirizine Active 10 MG Oral Daily August 01, 2017 3:16pm 08-01-2017 [facility] ([id number]) - Cholecalciferol, Vitamin D3, (VITAMIN D-3) 2,000 [...] times daily. Problem List As Of Date 08/20/2023 Noted Resolved ROTATOR CUFF RUPTURE [M75.120] 05/01/2003 Fitting and adjustment of orthopedic device [Z4*09/20/2011 ANKLE INSTABILITY [M24.873, M24.876] 01/01/2012 DERANGEMENT ANKLE/FOOT [M24.173, M24.176] 01/01/2012 Difficulty in walking [R26.2] 01/01/2012 LOOSE BODY ANKLE/FOOT [M24.073, M24.08] 01/01/2012 Follow-up examination, following unspecified liriano*01/01/2012 Rotator cuff tear arthropathy of both shoulders*05/25/2014 Glenohumeral arthritis [M19.019] 05/25/2014 Plantar fasciitis [M72.2] 10/15/2014 Difficulty walking [R26.2] 10/15/2014 Pain in left foot [M79.672] 10/15/2014 Heel pain, chronic [M79.673, G89.29] 10/15/2014 Heel s (more content not included)...NormalMercy Health Tiffin Hospital ClevelandMAGNESIUMon 39-64-1700Dilibczku [Mass/Vol]1.7 mg/dLLow1.9 - 2.7 mg/dLMetroHealthNo Panel Informationon 18-38-2486Qwjqexrevzavzt and review of laboratory resultsAbnormal MetroHealthMetroHealthPHOSPHORUSon 68-06-1892Qnkcjtltgdmiia and review of laboratory resultsNormalMetroHealthPhosphate [Mass/Vol]3.0 mg/dL2.5 - 5.0 mg/dL [facility]HealthBasic metabolic 2000 panelon 18-56-4021Wsoab gap [Moles/Vol]10 mmol/L 10 - 20MetroHealthCalcium [Mass/Vol]8.3 mg/dLLow8.6 - 10.3 mg/dLMetroHealth Chloride [Moles/Vol]106 mmol/L98 - 107 mmol/LMetroHealthCO2 [Moles/Vol]26 mmol/L 21 - 31 mmol/LMetroHealthCreatinine [Mass/Vol]0.47 mg/dLLow0.60 - 1.20 mg/dL [facility]HealthGFR/1.73 sq M.predicted CKD-EPI (S/P/Bld) [Vol rate/Area]94- PINF MetroHealthComment on above:202 CKD EPI Equation using Creatinine without Race [...] Diagnosing Kidney Disease. AmericanJournal of Kidney Diseases 202;79(2):268-88.e1. 2. N Engl J Med 2020 Vol. 385 Issue 19 Pages 3884-9426 Glucose [Mass/Vol]101 mg/dL74 - 109 mg/dLMetroHealthPotassium [Moles/Vol]4.0 mmol/L3.5 - 5.0 mmol/LMetroHealthSodium [Moles/Vol]138 mmol/L136 - 145 mmol/L MetroHealthUrea nitrogen [Mass/Vol]24 mg/dL7 - 25 mg/dLMetroHealthCBC panel Auto (Bld)on 67-15-0151Cridfkvqpbw distribution width (RBC) [Ratio]14.4 %11.5 - 14.5 %MetroHealthHematocrit (Bld) [Volume fraction]26.9 %Low36.0 - 46.0 %[facility] Hemoglobin (Bld) [Mass/Vol]8.8 g/dLLow12.0 - 15.0 g/dLMetroHealthInterpretation and review of laboratory resultsAbnormalMetroHealthMCH (RBC) [Entitic mass]29.8 pg26.0 - 34.0 pgMetroHealthMCHC (RBC) [Mass/Vol]32.8 g/dL32.0 - 35.9 g/dL [facility]HealthMCV (RBC) [Entitic vol]91 fL80 - 100 fLMetroHealthPlatelet mean volume (Bld) [Entitic vol]6.8 fLLow7.5 - 11.2 fLMetroHealthPlatelets (Bld) [#/Vol]282 10*3/uL150 - 400 K/uLMetroHealthRBC (Bld) [#/Vol]2.95 10*6/uLLow MetroHealthWBC (Bld) [#/Vol]5.6 10*3/uL4.5 - 11.5 K/uLMetroHealthMetroHealth MAGNESIUMon 66-44-0553Keosxuoik [Mass/Vol]1.7 mg/dLLow1.9 - 2.7 mg/dLMetroHealth No Panel Informationon 37-92-3813Vjrpqdghwyhypu and review of laboratory results AbnormalMetroHealthMetroHealthPHOSPHORUSon 08-59-8276Ltnuxgfys [Mass/Vol]2.0 mg/dLLow2.5 - 5.0 mg/dLMetroHealthBasic metabolic 2000 panelon 89-31-7904Ragjv gap [Moles/Vol]8 mmol/LLow10 - 20MetroHealthCalcium [Mass/Vol]8.1 mg/dLLow8.6 - 10.3 mg/dLMetroHealthChloride [Moles/Vol]108 mmol/LHigh98 - 107 mmol/L [facility]HealthCO2 [Moles/Vol]26 mmol/L21 - 31 mmol/LMetroHealthCreatinine [Mass/Vol]0.46 mg/dLLow0.60 - 1.20 mg/dLMetroHealthGFR/1.73 sq M.predicted CKD- EPI (S/P/Bld) [Vol rate/Area]94- PINFMetroHealthComment on above:2020 CKD EPI Equation using Creatinine without Race [...] Diagnosing Kidney Disease. AmericanJournal of Kidney Diseases 2022;79(2):268-88.e1. 2. N Engl J Med 1 Vol. 385 Issue 19 Pages 7334-3369 Glucose [Mass/Vol]117 mg/tKKiho42 - 109 mg/dLMetroHealthInterpretation and review of laboratory resultsAbnormalMetroHealthPotassium [Moles/Vol]4.2 mmol/L 3.5 - 5.0 mmol/LMetroHealthSodium [Moles/Vol]138 mmol/L136 - 145 mmol/L MetroHealthUrea nitrogen [Mass/Vol]20 mg/dL7 - 25 mg/dLMetroHealthMetroHealth Anion gap [Moles/Vol]10 mmol/L10 - 20MetroHealthCalcium [Mass/Vol]8.3 mg/dLLow 8.6 - 10.3 mg/dLMetroHealthChloride [Moles/Vol]106 mmol/L98 - 107 mmol/L [facility]HealthCO2 [Moles/Vol]26 mmol/L21 - 31 mmol/LMetroHealthCreatinine [Mass/Vol]0.47 mg/dLLow0.60 - 1.20 mg/dLMetroHealthGFR/1.73 sq M.predicted CKD- EPI (S/P/Bld) [Vol rate/Area]94- PINFMetroHealthComment on above:2020 CKD EPI Equation using Creatinine without Race [...] Diagnosing Kidney Disease. AmericanJournal of Kidney Diseases 202;79(2):268-88.e1. 2. N Engl J Med 1 Vol. 385 Issue 19 Pages 9408-8803 Glucose [Mass/Vol]113 mg/wGVnjx64 - 109 mg/dLMetroHealthPotassium [Moles/Vol]3.3 mmol/LLow3.5 - 5.0 mmol/LMetroHealthSodium [Moles/Vol]139 mmol/L136 - 145 mmol/LMetroHealthUrea nitrogen [Mass/Vol]15 mg/dL7 - 25 mg/dLMetroOhiohealth Nelsonville Health CenterCBC panel Auto (Bld)on 21-28-5780Yqabtykverk distribution width (RBC) [Ratio]14.4 % 11.5 - 14.5 %MetroHealthHematocrit (Bld) [Volume fraction]26.4 %Low36.0 - 46.0 % MetroHealthHemoglobin (Bld) [Mass/Vol]9.1 g/dLLow12.0 - 15.0 g/dLMetroHealth Interpretation and review of laboratory resultsAbnormalMetroHealthMCH (RBC) [Entitic mass]30.7 pg26.0 - 34.0 pgMetroHealthMCHC (RBC) [Mass/Vol]34.3 g/dL32.0 - 35.9 g/dLMetroOhiohealth Nelsonville Health CenterMCV (RBC) [Entitic vol]90 fL80 - 100 fLMetroHealth Platelet mean volume (Bld) [Entitic vol]6.8 fLLow7.5 - 11.2 fLMetroHealth Platelets (Bld) [#/Vol]278 10*3/uL150 - 400 K/uLMetroHealthRBC (Bld) [#/Vol]2.95 10*6/uLLowMetroHealthWBC (Bld) [#/Vol]6.0 10*3/uL4.5 - 11.5 K/uLMetroHealth MetroHealthMAGNESIUMon 44-48-0066Ulqrwbdfj [Mass/Vol]1.8 mg/dLLow1.9 - 2.7 mg/dL [facility] Brain WO contraston 56-71-9772ZTJNBFKBGMM: MR HEAD W/O 08/17/2023 05:30 AM CLINICAL [...] Other findings as described above. MACRO: None Antonio eMjia MD - 08/17/2023 EXAMINATION: MR HEAD W/O [...] Other findings as described above. MACRO: None MetroHealthRadiology Study observation (narrative)[facility] Brain WO contrastOrdered By: Antonio Cisneros on 23-75-6414UgbeyOgwxop Work Phone: No Panel Informationon 38-90-0414Pdshbjvhwblihe and review of laboratory resultsAbnormalMetroHealthMetroHealthPHOSPHORUSon 32-87-9267Pjwoxpbfw [Mass/Vol]2.2 mg/dLLow2.5 - 5.0 mg/dLMetroHealthBasic metabolic 1999 panelon 27-94-7884Wlemc gap [Moles/Vol]11 mmol/L10 - 20 MetroHealthCalcium [Mass/Vol]8.2 mg/dLLow8.6 - 10.3 mg/dLMetroHealthChloride [Moles/Vol]103 mmol/L98 - 107 mmol/LMetroHealthCO2 [Moles/Vol]25 mmol/L21 - 31 mmol/LMetroHealthCreatinine [Mass/Vol]0.48 mg/dLLow0.60 - 1.20 mg/dLMetroHealth GFR/1.73 sq M.predicted CKD-EPI (S/P/Bld) [Vol rate/Area]93- PINFMetroHealth Comment on above:2020 CKD EPI Equation using Creatinine without Race [...] Med 1 Vol. 385 Issue 19 Pages 6624-4808 Glucose [Mass/Vol]114 mg/iNGrvr52 - 109 mg/dLMetroHealthInterpretation and review of laboratory resultsAbnormalMetroHealthPotassium [Moles/Vol]3.5 mmol/L 3.5 - 5.0 mmol/LMetroHealthSodium [Moles/Vol]135 mmol/LSgf077 - 145 mmol/L MetroHealthUrea nitrogen [Mass/Vol]13 mg/dL7 - 25 mg/dLMetroHealthMetroHealth Anion gap [Moles/Vol]11 mmol/L10 - 20MetroHealthCalcium [Mass/Vol]8.0 mg/dLLow 8.6 - 10.3 mg/dLMetroHealthChloride [Moles/Vol]106 mmol/L98 - 107 mmol/L [facility]HealthCO2 [Moles/Vol]24 mmol/L21 - 31 mmol/LMetroHealthCreatinine [Mass/Vol]0.48 mg/dLLow0.60 - 1.20 mg/dLMetroHealthGFR/1.73 sq M.predicted CKD- EPI (S/P/Bld) [Vol rate/Area]93- PINFMetroHealthComment on above:2020 CKD EPI Equation using Creatinine without Race [...] Diagnosing Kidney Disease. AmericanJournal of Kidney Diseases 202;79(2):268-88.e1. 2. N Engl J Med 1 Vol. 385 Issue 19 Pages 7732-3128 Glucose [Mass/Vol]93 mg/dL74 - 109 mg/dLMetroHealthPotassium [Moles/Vol]3.6 mmol/L3.5 - 5.0 mmol/LMetroHealthSodium [Moles/Vol]137 mmol/L136 - 145 mmol/L MetroHealthUrea nitrogen [Mass/Vol]13 mg/dL7 - 25 mg/dLMetroHealthCBC panel Auto (Bld)on 49-84-5530Ypqbpjetmmd distribution width (RBC) [Ratio]14.6 %High11.5 - 14.5 %MetroHealthHematocrit (Bld) [Volume fraction]26.9 %Low36.0 - 46.0 % MetroHealthHemoglobin (Bld) [Mass/Vol]9.0 g/dLLow12.0 - 15.0 g/dLMetroHealth Interpretation and review of laboratory resultsAbnormalMetroHealthMCH (RBC) [Entitic mass]30.2 pg26.0 - 34.0 pgMetroHealthMCHC (RBC) [Mass/Vol]33.3 g/dL32.0 - 35.9 g/dLMetroHealthMCV (RBC) [Entitic vol]91 fL80 - 100 fLMetroHealth Platelet mean volume (Bld) [Entitic vol]6.7 fLLow7.5 - 11.2 fLMetroHealth Platelets (Bld) [#/Vol]300 10*3/uL150 - 400 K/uLMetroHealthRBC (Bld) [#/Vol]2.97 10*6/uLLowMetroHealthWBC (Bld) [#/Vol]7.4 10*3/uL4.5 - 11.5 K/uLMetroHealth MetroHealthEEG study reporton 89-02-1668Zoqs LTM vEEG (12-26 hours), performed on a [...] BIRDs = Brief (potentially) Ictal Rhythmic Discharges shop repairer: Denis Ellis TChinmay, [facility] Attending Physician(s): Minoo MoncadaTable formatting from the original result was not included. [facility] Inpatient Neurophysiology [address] [address] Patient Name: Carly Marcelino : 1940 Location of Recording: [facility] Main Referring Provider: Luis Barbosa MD EEG Type: LTM vEEG (12-26 hours) EEG number: [id number] EEG End Date of Study: 08/16/23 EEG [...] PRN Methods: This recording was performed on [employer] EEG equipment digitizing at 512 Hz. Filters [...] adequate for characterizing or excluding cardiac arrhythmia. [facility] study reportOrdered By: Emmanuel Yuan on 17-54-2339VklrlFrgong Work Phone: [facility] [phone] and review of laboratory resultsNormalMetroHealthMagnesium [Mass/Vol]2.0 mg/dL1.9 - 2.7 mg/dL MetroHealthMetroHealthMagnesium [Mass/Vol]1.6 mg/dLLow1.9 - 2.7 mg/dLMetroOhiohealth [facility] No Panel Informationon [id number]: XA EMBOL INTRACRAN OR SPINAL C (MICHELLE), XA EXISTING CATHETER (MICHELLE), XA LT COMMON CAROTIDHEAD (MICHELLE) CLINICAL HISTORY: Rad Procedure required: = L MMA embolization,L SDH TECHNOLOGISTS NOTE: Moderate sedation intraservice start: 1514- 1553 end; puncture 1514 (accession [id number]), Moderate sedation intraservice start: Moderate sedation intraservice start: 1514- 1553 end; puncture 1514 (accession [id number]), Moderate sedation intraservice start: Moderate sedation intraservice start: 1514- 1553 end; puncture 1514 (accession [id number]) FLUOROSCOPIST: ROYCE CASAREZ TIME: 18.1 Minutes INTRA-PROCEDURE [...] wire. The dilator was removed. A 5 Austrian Berenstein catheter, a 5 Austrian Hernandez 2 catheter a Bentson wire and 0.035 inch glidewire were used to select the innominate artery were 1 injection was performed, aortic arch just proximal to the left subclavian artery origin were one injection was performed, and left common carotid artery where one injection was performed,imaging over the head and neck. A Renegade [...] the left subclavian artery origin demonstrates no high-gradenarrowing of the subclavian artery origin. There is at least mild narrowing of the origin of left vertebral artery, although this is not well evaluated due to patient motion and suboptimal contrast opacification. The distal left subclavian artery is widely patent. Left common carotid artery injection with DSA over the neck shows the left common carotid artery peterson normal. The origin of the left internal [...] collagen slurry and fibered microcoils. MACRO: None RADIOLOGYPresRoyce arellano MD - 08/16/2023 EXAMINATION: XA EMBOL INTRACRAN OR SPINAL C (MICHELLE), XA EXISTING CATHETER (MICHELLE), XA LT COMMON CAROTIDHEAD (MICHELLE) CLINICAL HISTORY: Rad Procedure required: = L MMA embolization,L SDH TECHNOLOGISTS NOTE: Moderate sedation intraservice start: 1514- 1553 end; puncture 1514 (accession [id number]), Moderate sedation intraservice start: Moderate sedation intraservice start: 1514- 1553 end; puncture 1514 (accession [id number]), Moderate sedation intraservice start: Moderate sedation intraservice start: 1514- 1553 end; puncture 1514 (accession [id number]) FLUOROSCOPIST: ROYCE CASAREZ TIME: 18.1 Minutes INTRA-PROCEDURE [...] wire. The dilator was removed. A 5 Austrian Berenstein catheter, a 5 Austrian Hernandez 2 catheter a Bentson wire and 0.035 inch glidewire were used to select the innominate artery were 1 injection was performed, aortic arch just proximal to the left subclavian artery origin were one injection was performed, and left common carotid artery where one injection was performed,imaging over the head and neck. A Renegade [...] the left subclavian artery origin demonstrates no high-gradenarrowing of the subclavian artery origin. There is at least mild narrowing of the origin of left vertebral artery, although this is not well evaluated due to patient motion and suboptimal contrast opacification. The distal left subclavian artery is widely patent. Left common carotid artery injection with DSA over the neck shows the left common carotid artery peterson normal. The origin of the left internal [...] collagen slurry and fibered microcoils. MACRO: None MetroHealthMetroHealthRadiology Study observation (narrative)[facility] Interpretation and review of laboratory resultsAbnormalMetroHealthMetroHealth PHOSPHORUSon 87-16-5136Ctjmqogifuvejy and review of laboratory resultsNormal MetroHealthPhosphate [Mass/Vol]2.7 mg/dL2.5 - 5.0 mg/dLMetroHealthXR Abdomen AP on 50-85-1368HUWKJVYSCYC: XR ABDOMEN AP 1 VIEW 08/16/2023 12:53 [...] 2. Nonobstructive intestinal gas pattern. MACRO: None Mercedes Mota, - 08/16/2023 EXAMINATION: XR ABDOMEN AP 1 VIEW 08/16/2023 12:53 PM CLINICAL HISTORY: Step 2 of Corpak 2 Step process ASSOCIATED DIAGNOSIS: ORDERING PROVIDER: RONNIE [facility] TECHNOLOGISTS NOTE: COMPARISON: XR ABDOMEN AP [...] 2. Nonobstructive intestinal gas pattern. MACRO: None MetroHealthMetroHealthRadiology Study observation (narrative)[facility] EXAMINATION: XR ABDOMEN AP 1 VIEW 08/16/2023 10:28 AM CLINICAL HISTORY: evaluate line ASSOCIATED DIAGNOSIS: ORDERING PROVIDER: [facility] TECH[facility]OLOG[facility] NOTE: COMPARISON: XR ABDOMEN AP 1 VIEW 08/16/2023, 10:31 AM FINDINGS: IMPRESSION: Corpak is at the junction of the body and fundus, slightly more distal than it was on the prior study. MACRO: None Artem Zamarripa MD - 08/16/2023 EXAMINATION: XR ABDOMEN AP 1 VIEW 08/16/2023 10:28 AM CLINICAL HISTORY: evaluate line ASSOCIATED DIAGNOSIS: ORDERING PROVIDER: RONNIE JESUS TECHNOLOGISTS NOTE: COMPARISON: XR ABDOMEN AP 1 VIEW 08/16/2023, 10:31 AM FINDINGS: IMPRESSION: Corpak is at the junction of the body and fundus, slightly more distal than it was on the prior study. MACRO: None MetroHealthMetroHealthEXAMINATION: XR ABDOMEN AP 1 VIEW 08/16/2023 10:21 AM CLINICAL HISTORY: Step 2 of Corpak 2 Step process ASSOCIATED DIAGNOSIS: ORDERING PROVIDER: RONNIE JESUS TECHNOLOGISTS NOTE: COMPARISON: CT BODY IMAGE IMPORT(MICHELLE) 07/29/2023, 11:50 AM FINDINGS: IMPRESSION: Corpak is in the stomach-at the junction of the body and fundus MACRO: None Artem Zamarripa MD - 08/16/2023 EXAMINATION: XR ABDOMEN AP 1 VIEW 08/16/2023 10:21 AM CLINICAL HISTORY: Step 2 of Corpak 2 Step process ASSOCIATED DIAGNOSIS: ORDERING PROVIDER: RONNIE JESUS TECHNOLOGISTS NOTE: COMPARISON: CT BODY IMAGE IMPORT(MICHELLE) 07/29/2023, 11:50 AM FINDINGS: IMPRESSION: Corpak is in the stomach-at the junction of the body and fundus MACRO: None MetroHealthMetroHealthRadiology Study observation (narrative)MetroHealthXR Chest Single viewon 32-08-2047QEAMSZAMUQU: XR CHEST AP OR PA 1 VIEW [...] lower left pulmonary subsegmental atelectasis. MACRO: None Mercedes Mota, DO - 08/16/2023 EXAMINATION: XR CHEST AP OR PA 1 VIEW 08/16/2023 12:48 PM CLINICAL HISTORY: Feeding tube assessment ASSOCIATED DIAGNOSIS: Feeding tube assessment ORDERING PROVIDER: [facility]: COMPARISON: XR CHEST AP OR [...] lower left pulmonary subsegmental atelectasis. MACRO: None MetroHealthRadiology Study observation (narrative)MetroHealthEXAMINATION: XR CHEST AP OR PA 1 VIEW 08/16/2023 10:29 AM CLINICAL HISTORY: Feeding tube assessment ASSOCIATED DIAGNOSIS: Feeding tube assessment ORDERING PROVIDER: [facility]CH[facility] NOTE: COMPARISON: XR CHEST AP OR PA 1 VIEW 08/16/2023, 10:30 AM XRAY CHEST IMAGE IMPORT(MICHELLE) 08/12/2023, 4:28PM FINDINGS: IMPRESSION: Short interval progress exam: Corpak is in the distal esophagus and can be advanced. MACRO: None Artem Zamarripa MD - 08/16/2023 EXAMINATION: XR CHEST AP OR PA 1 VIEW 08/16/2023 10:29 AM CLINICAL HISTORY: Feeding tube assessment ASSOCIATED DIAGNOSIS: Feeding tube assessment ORDERING PROVIDER: [facility]ONNIE [facility] TECHNOLOGISTS NOTE: COMPARISON: XR CHEST AP OR PA 1 VIEW 08/16/2023, 10:30 AM XRAY CHEST IMAGE IMPORT(MICHELLE) 08/12/2023, 4:28PM FINDINGS: IMPRESSION: Short interval progress exam: Corpak is in the distal esophagus and can be advanced. MACRO: None MetroHealthMetroHealthEXAMINATION: XR CHEST AP OR PA 1 VIEW 08/16/2023 10:20 AM CLINICAL HISTORY: Feeding tube assessment ASSOCIATED DIAGNOSIS: Feeding tube assessment ORDERING PROVIDER: [facility] NOTE: COMPARISON: XRAY CHEST IMAGE IMPORT(MICHELLE) [...] and replacement would be appropriate MACRO: None Artem Zamarripa MD - 08/16/2023 EXAMINATION: XR CHEST AP OR PA 1 VIEW 08/16/2023 10:20 AM CLINICAL HISTORY: Feeding tube assessment ASSOCIATED DIAGNOSIS: Feeding tube assessment ORDERING PROVIDER: [facility] NOTE: COMPARISON: XRAY CHEST IMAGE IMPORT(MICHELLE) [...] and replacement would be appropriate MACRO: None MetroHealthRadiology Study observation (narrative)MetroHealthXR Chest Single viewOrdered By: Mercedes Castro on 72-12-4746YkmtjDjpemj Work Phone: XR Chest Single viewOrdered By: Artem Grace on 38-17-7957ZzuinKdaher Work Phone: basic metabolic 2000 panelon 27-89-5419Ikrqq gap [Moles/Vol]10 mmol/L10 - 20MetroHealthCalcium [Mass/Vol]7.8 mg/dLLow8.6 - 10.3 mg/dLMetroHealthChloride [Moles/Vol]107 mmol/L98 - 107 mmol/LMetroHealthCO2 [Moles/Vol]23 mmol/L21 - 31 mmol/LMetroHealthCreatinine [Mass/Vol]0.57 mg/dLLow 0.60 - 1.20 mg/dLMetroHealthGFR/1.73 sq M.predicted CKD-EPI (S/P/Bld) [Vol rate/Area]90- PINFMetroHealthComment on above:202 CKD EPI Equation using Creatinine without Race [...] Diagnosing Kidney Disease. AmericanJournal of Kidney Diseases 202;79(2):268-88.e1. 2. N Engl J Med 2021 Vol. 385 Issue 19 Pages 8352-2231 Glucose [Mass/Vol]122 mg/vJCzlm42 - 109 mg/dLMetroHealthInterpretation and review of laboratory resultsAbnormalMetroHealthPotassium [Moles/Vol]4.2 mmol/L 3.5 - 5.0 mmol/LMetroHealthSodium [Moles/Vol]136 mmol/L136 - 145 mmol/L MetroHealthUrea nitrogen [Mass/Vol]14 mg/dL7 - 25 mg/dLMetroHealthCBC panel Auto (Bld)on 74-90-7934Tjkokmbtgzc distribution width (RBC) [Ratio]14.4 %11.5 - 14.5 %MetroHealthHematocrit (Bld) [Volume fraction]26.6 %Low36.0 - 46.0 %[facility] Hemoglobin (Bld) [Mass/Vol]8.9 g/dLLow12.0 - 15.0 g/dLMetroHealthInterpretation and review of laboratory resultsAbnormalMetroHealthMCH (RBC) [Entitic mass]30.1 pg26.0 - 34.0 pgMetroHealthMCHC (RBC) [Mass/Vol]33.4 g/dL32.0 - 35.9 g/dL [facility]HealthMCV (RBC) [Entitic vol]90 fL80 - 100 fLMetroHealthPlatelet mean volume (Bld) [Entitic vol]6.8 fLLow7.5 - 11.2 fLMetroHealthPlatelets (Bld) [#/Vol]314 10*3/uL150 - 400 K/uLMetroHealthRBC (Bld) [#/Vol]2.94 10*6/uLLow MetroHealthWBC (Bld) [#/Vol]6.8 10*3/uL4.5 - 11.5 K/uLMetroHealthMetroHealthCT Head WO contrastOrdered By: Christine Ramirez on 93-55-7355WF OUE1046.7 (mGy.cm)[facility] Work Phone: cT SeriesHeadMetroHealth Work Phone: cTDI VOL67.5 (mGy)[facility] Work Phone: [facility] Head Dosimetry PhantomMetroHealth Work Phone: [facility] Work Phone: ct Head WO contraston 62-49-9810YYVWOXXVKOW: CT HEAD W/O CONTRAST 08/14/2023 11:04 PM [...] left cerebral convexity subdural hemorrhage. MACRO: None Christine Angel MD - 08/15/2023 EXAMINATION: CT HEAD W/O [...] left cerebral convexity subdural hemorrhage. MACRO: None MetroHealthMAGNESIUMon 03-70-7056Rsbcdjoqa [Mass/Vol]2.0 mg/dL1.9 - 2.7 mg/dL MetroHealthNo Panel Informationon 04-73-4722Sfldwgazt Study observation (narrative)MetroHealthInterpretation and review of laboratory resultsNormal MetroHealthMetroHealthPHOSPHORUSon 35-50-3668Mycrwwpbh [Mass/Vol]3.7 mg/dL2.5 - 5.0 mg/dLMetroHealthBLOOD GAS, ARTERIALOrdered By: Cortez Valladares on 08-14-2023 Base excess Calc (Bld) [Moles/Vol]-1.1000 mmol/L-2.0 - 3.0 mmol/LMetroHealthCO2 (Bld) [Partial pressure]38.9 mm[Hg]MetroHealthOxygen (Bld) [Partial pressure]227 mm[Hg]HighMetroHealthpH (Bld)7.391 [pH]7.350 - 7.450MetroHealthBasic metabolic 2000 panelon 64-27-7384Apagg gap [Moles/Vol]10 mmol/L10 - 20MetroHealthCalcium [Mass/Vol]8.6 mg/dL8.6 - 10.3 mg/dLMetroHealthChloride [Moles/Vol]106 mmol/L98 - 107 mmol/LMetroHealthCO2 [Moles/Vol]26 mmol/L21 - 31 mmol/LMetroHealth Creatinine [Mass/Vol]0.58 mg/dLLow0.60 - 1.20 mg/dLMetroHealthGFR/1.73 sq M.predicted CKD-EPI (S/P/Bld) [Vol rate/Area]89- PINFMetroHealthComment on above:2020 CKD EPI Equation using Creatinine without Race [...] Diagnosing Kidney Disease. AmericanJournal of Kidney Diseases 202;79(2):268-88.e1. 2. N Engl J Med 1 Vol. 385 Issue 19 Pages 6530-9662 Glucose [Mass/Vol]118 mg/aFElwa56 - 109 mg/dLMetroHealthPotassium [Moles/Vol]4.1 mmol/L3.5 - 5.0 mmol/LMetroHealthSodium [Moles/Vol]138 mmol/L136 - 145 mmol/L MetroHealthUrea nitrogen [Mass/Vol]19 mg/dL7 - 25 mg/dLMetroHealthCALCIUM, IONIZEDon 04-78-7865Cprkwog.ionized (Bld) [Moles/Vol]1.20 mmol/L1.15 - 1.33 mmol/LMetroHealthComment on above:This test was developed, and its performance characteristics determined by the Department of Pathology of [facility] [employer] [facility]. It has not been cleared or approved by the FDA. This test is used for clinical purposes only.Interpretation and review of laboratory resultsNormal MetroOhiohealth Nelsonville Health CenterMetroOhiohealth Nelsonville Health CenterCBC WITH DIFFERENTIALOrdered By: Gunajn Cash on 35-52-3345Zezyclegu (Bld) [#/Vol]0.05 10*3/uL0.00 - 0.20 K/uLMetroHealth Basophils/100 WBC (Bld)0.7 %NINF - 1.9 %MetroHealthEosinophils (Bld) [#/Vol]0.11 10*3/uL0.00 - 0.70 K/uLMetroHealthEosinophils/100 WBC (Bld)1.5 %0.1 - 4.0 % MetroHealthErythrocyte distribution width (RBC) [Ratio]14.4 %11.5 - 14.5 % MetroHealthHematocrit (Bld) [Volume fraction]28.5 %Low36.0 - 46.0 %[facility] Hemoglobin (Bld) [Mass/Vol]9.5 g/dLLow12.0 - 15.0 g/dLMetroHealthInterpretation and review of laboratory resultsAbnormalMetroHealthLymphocytes (Bld) [#/Vol]0.73 10*3/uLLow1.00 - 4.80 K/uLMetroHealthLymphocytes/100 WBC (Bld)10.4 %Low24.0 - 44.0 %MetroHealthMCH (RBC) [Entitic mass]30.8 pg26.0 - 34.0 pgMetroHealthMCHC (RBC) [Mass/Vol]33.5 g/dL32.0 - 35.9 g/dLMetroHealthMCV (RBC) [Entitic vol]92 fL 80 - 100 fLMetroHealthMonocytes (Bld) [#/Vol]0.53 10*3/uL0.20 - 1.00 K/uL MetroHealthMonocytes/100 WBC (Bld)7.6 %2.0 - 11.0 %MetroHealthNeutrophils (Bld) [#/Vol]5.60 10*3/uL1.50 - 8.00 K/uLMetroHealthNeutrophils/100 WBC (Bld)79.8 % High31.0 - 76.0 %MetroHealthNucleated RBC (Bld) [#/Vol]0.01 10*3/uLMetroHealth Nucleated RBC/100 WBC (Bld) [Ratio]MetroHealthPlatelet mean volume (Bld) [Entitic vol]7.2 fLLow7.5 - 11.2 fLMetroHealthPlatelets (Bld) [#/Vol]291 10*3/uL 150 - 400 K/uLMetroHealthRBC (Bld) [#/Vol]3.10 10*6/uLLowMetroHealthWBC (Bld) [#/Vol]7.0 10*3/uL4.5 - 11.5 K/uLMetroHealthMetroHealthCO-OXIMETERon 08-14-2023 Carboxyhemoglobin (BldA) [Mass fraction]1.3 %0.5 - 1.5 %MetroHealthHematocrit (BldA) [Volume fraction]29.6 %Low38.0 - 46.0 %MetroHealthHemoglobin (Bld) [Mass/Vol]9.6 g/dLLow12.0 - 16.0 g/dLMetroHealthMethemoglobin (BldA) [Mass fraction]1.3 %0.0 - 1.5 %MetroHealthOxyhemoglobin (BldA) [Mass fraction]96.6 % 94.0 - 98.0 %MetroHealthCT Head WO contraston 70-37-1383Rmpfuwrqd Study observation (narrative)MetroHealthELECTROLYTESon 59-65-9683Mzlxuigp [Moles/Vol] 106 mmol/L98 - 107 mmol/LMetroHealthPotassium [Moles/Vol]3.3 mmol/LLow3.5 - 5.0 mmol/LMetroHealthSodium [Moles/Vol]137 mmol/L136 - 146 mmol/LMetroHealthGLUCOSE, WHOLE BLOODon 20-90-2640Ygdgzht [Mass/Vol]144 mg/hSNfsu17 - 105 mg/dL MetroHealthLACTIC ACIDon 27-07-2279Vnmkidclnouxre and review of laboratory resultsNormalMetroHealthLactate [Moles/Vol]1.2 mmol/L0.5 - 1.6 mmol/LMetroHealth Laboratory - Chemistry and Chemistry - challengeon 46-27-8587UUF6 (Bld) [Moles/Vol]23 mmol/L21 - 28 mmol/LMetroHealthMAGNESIUMon 93-44-7697Frrnqcgko [Mass/Vol]1.8 mg/dLLow1.9 - 2.7 mg/dLMetroHealthNo Panel Informationon 94-89-0680Wtzinlpefvaxxx and review of laboratory resultsAbnormalMetroHealth MetroHealthInterpretation and review of laboratory resultsAbnormalMetroHealth MetroHealthBasic metabolic 2000 panelon 94-62-1681Dvdrb gap [Moles/Vol]11 mmol/L 10 - 20MetroHealthCalcium [Mass/Vol]9.0 mg/dL8.6 - 10.3 mg/dLMetroHealthChloride [Moles/Vol]108 mmol/LHigh98 - 107 mmol/LMetroHealthCO2 [Moles/Vol]26 mmol/L21 - 31 mmol/LMetroHealthCreatinine [Mass/Vol]0.66 mg/dL0.60 - 1.20 mg/dLMetroHealth GFR/1.73 sq M.predicted CKD-EPI (S/P/Bld) [Vol rate/Area]86- PINFMetroHealth Comment on above:2020 CKD EPI Equation using Creatinine without Race [...] Diagnosing Kidney Disease. AmericanJournal of Kidney Diseases 202;79(2):268-88.e1. 2. N Engl J Med 2020 Vol. 385 Issue 19 Pages 5952-3122 Glucose [Mass/Vol]103 mg/dL74 - 109 mg/dLMetroHealthInterpretation and review of laboratory resultsAbnormalMetroHealthPotassium [Moles/Vol]4.2 mmol/L3.5 - 5.0 mmol/LMetroHealthSodium [Moles/Vol]141 mmol/L136 - 145 mmol/LMetroHealthUrea nitrogen [Mass/Vol]20 mg/dL7 - 25 mg/dLMetroHealthCBC panel Auto (Bld)on 05-34-8551Ydkxldpkgvh distribution width (RBC) [Ratio]14.6 %High11.5 - 14.5 % MetroHealthHematocrit (Bld) [Volume fraction]30.0 %Low36.0 - 46.0 %[facility] Hemoglobin (Bld) [Mass/Vol]10.0 g/dLLow12.0 - 15.0 g/dLMetroHealthInterpretation and review of laboratory resultsAbnormalMetroHealthMCH (RBC) [Entitic mass]30.6 pg26.0 - 34.0 pgMetroHealthMCHC (RBC) [Mass/Vol]33.3 g/dL32.0 - 35.9 g/dL MetroHealthMCV (RBC) [Entitic vol]92 fL80 - 100 fLMetroHealthPlatelet mean volume (Bld) [Entitic vol]6.8 fLLow7.5 - 11.2 fLMetroHealthPlatelets (Bld) [#/Vol]311 10*3/uL150 - 400 K/uLMetroHealthRBC (Bld) [#/Vol]3.28 10*6/uLLow MetroHealthWBC (Bld) [#/Vol]6.9 10*3/uL4.5 - 11.5 K/uLMetroHealthMetroHealthCT Head or Brain w/o Contraston 17-65-6976BM Head or Brain w/o ContrastExam Date/Time: 08/12/2023 16:43 EDT Reason for Exam: Altered mental status Report IMPRESSION: ENLARGING APPROXIMATELY 2 CM PREDOMINANTLY LEFT FRONTAL SUBDURAL HEMATOMA WITH INCREASING RETY-EE-FRLPH MIDLINE SHIFT, NOTED. Critical communication: Evert Perkins [...] which results in approximately 1 cm of pcgj-ob-lhaft midline shift with mild subfalcine and uncal herniation. There is no hydrocephalus, fracture, or other significant changes identified. The mastoid air cells and visualized paranasal sinuses are essentially clear. Ordering Provider: Aurea Pichardo FINAL REPORT Dictated: 08/13/2023 9:50 am Anant Ford MD Signed (Electronic Signature): 08/13/2023 9:50 am Signed by: Anant Ford MD Transcribed by: BRENDA Technologist: [facility] HospitalGLUCOSE, FINGERSTICK-IN OFFICEon 98-70-0409Qxcwuxz [Mass/Vol]108 mg/dL80 - 116 mg/dL MetroHealthInterpretation and review of laboratory resultsEssentia HealthroHealthGlucose [Mass/Vol]105 mg/dL80 - 116 mg/dLMetroHealthInterpretation and review of laboratory resultsNormalMetroHealthMetroHealthMAGNESIUMon 78-11-3206Xihnryhnf [Mass/Vol]2.0 mg/dL1.9 - 2.7 mg/dLMetroHealthNo Panel Informationon 71-30-4463Rkyii TubeDoneMetroHealthMetroHealthInterpretation and review of laboratory resultsNormalMetroHealthMetroHealthPARTIAL THROMBOPLASTIN TIMEon 57-10-4587jGMA Coag (Bld) [Time]LowMetroHealthInterpretation and review of laboratory resultsAbnormalMetroHealthMetroHealthPHOSPHORUSon 08-13-2023 Phosphate [Mass/Vol]3.0 mg/dL2.5 - 5.0 mg/dLMetroHealthPROTHROMBIN TIME AND INR on 82-85-2776UZJ Coag (PPP) [Relative time]1.08 {INR}0.90 - 1.10[facility] Interpretation and review of laboratory resultsNormalMetroHealthPT Coag (PPP) [Time]12.1 sMetroHealthMetroHealthURINALYSISon 67-17-7284Cnykwkuhwz (U)Turbid ClearMetroHealthBilirubin Ql (U)NegativeNegativeMetroHealthColor (U)Light Yellow ColorlessMetroHealthEpithelial cells.squamous LM.HPF (Urine sed) [#/Area]0-2 MetroHealthGlucose Auto test strip (U) [Mass/Vol]NegativeNegative mg/dL MetroHealthHemoglobin Ql (U)NegativeNegativeMetroHealthInterpretation and review of laboratory resultsAbnormalMetroHealthKetones Ql (U)NegativeNegative mg/dL MetroHealthLeukocyte esterase Test strip Ql (U)PositiveAbnormalNegative MetroHealthComment on above:Normal urine specimens will not produce a positive reaction. Small amounts of leukocyte esterase, causing a positive reaction should be repeated, using a fresh urine specimen, from the same patient. P ositive results require further testing for pyuria.Mucus Ql (Urine sed)Present MetroHealthNitrite Ql (U)NegativeNegativeMetroHealthpH (U)6.0 [pH]5.0 - 8.0 MetroHealthProtein (U) [Mass/Vol]20 mg/dLNegativeMetroHealthSpecific gravity (U) [Rel density]1.018NINF - 1.030MetroHealthUrobilinogen Qn (U)NegativeNegative mg/dLMetroHealthWBC (U) [#/Vol]0-2MetroHealthWBC LM.HPF (Urine sed) [#/Area] 11-30AbnormalMetroHealthA negative leukocyte esterase AND negative nitrite test [...] (positive predictive value for UTI around 50%) MetroHealthMetroHealthXR Chest Single Viewon 38-80-6902OC Chest Single ViewExam Date/Time: 08/12/2023 16:39 EDT Reason for Exam: [...] FINAL REPORT Dictated: 08/13/2023 7:51 am Joseph Jain M.D. Signed (Electronic Signature): 08/13/2023 7:51 am Signed by: Joseph Jain M.D. Transcribed by: BRENDA Technologist: IMKE Technical Comments Radiation Dose: Kar in mGy = na DAP = naNormalAvita Health System Bucyrus HospitalBMPon 74-77-7100Wjwyw gap [Moles/Vol]12 mmol/LNormal6-16[facility] HospitalComment on above:Performed By: #### [id number] #### [facility] [address], [place] [address]Whfmmsj [Mass/Vol]9.1 mg/dLNormal8.9-11.1FWright-Patterson Medical CenterComment on above:Performed By: #### [id number] #### [facility] [address], [place] [address]Lpvgvjmi [Moles/Vol]102 mmol/ABafapb010-179WddspdAvita Health System Bucyrus HospitalComment on above:Performed By: #### [id number] #### [facility] [address], [place] [address]DG7 [Moles/Vol]24 mmol/RAzqqrr51-35EojydmAvita Health System Bucyrus Hospital Comment on above:Performed By: #### [id number] #### [facility] [address], [place] [address]Oiwklnqvsx [Mass/Vol]0.8 mg/dLNormal0.5-1.3FWright-Patterson Medical CenterComment on above:Performed By: #### [id number] #### [facility] [address], [place] [address]Fiuqpdw [Mass/Vol]149 mg/lSWqlxqm07-855YuneuuAvita Health System Bucyrus HospitalComment on above:Performed By: #### [id number] #### [facility] [address], [place] [address]Ysngvrjjw [Moles/Vol]3.8 mmol/LNormal3.5-5.3FWright-Patterson Medical CenterComment on above:Performed By: #### [id number] #### [facility] [address], [place] [address]Mncuui [Moles/Vol]134 mmol/YZge375-549LpibdgAvita Health System Bucyrus HospitalComment on above:Performed By: #### [id number] #### [facility] [address], [place] [address]Effu nitrogen [Mass/Vol]24 mg/dLHigh5-21[facility] HospitalComment on above:Performed By: #### [id number] #### [facility] [address], [place] [address]Lcxe nitrogen/Creatinine [Mass ratio]30 No AlutvZvad97-50Rtgseo Sinai Hospital Of BaltimoreComment on above:Performed By: #### [id number] #### [facility] [address], [place] [address]Iqbaz metabolic 2000 panelon 77-79-1642Wfgxt gap [Moles/Vol]11 mmol/L10 - 20MetroHealthCalcium [Mass/Vol]8.8 mg/dL8.6 - 10.3 mg/dLMetroHealth Chloride [Moles/Vol]106 mmol/L98 - 107 mmol/LMetroHealthCO2 [Moles/Vol]25 mmol/L 21 - 31 mmol/LMetroHealthCreatinine [Mass/Vol]0.73 mg/dL0.60 - 1.20 mg/dL MetroHealthGFR/1.73 sq M.predicted CKD-EPI (S/P/Bld) [Vol rate/Area]81- PINF MetroHealthComment on above:2020 CKD EPI Equation using Creatinine without Race [...] Med 1 Vol. 385 Issue 19 Pages 7372-6032 Glucose [Mass/Vol]91 mg/dL74 - 109 mg/dLMetroHealthPotassium [Moles/Vol]4.1 mmol/L3.5 - 5.0 mmol/LMetroHealthSodium [Moles/Vol]138 mmol/L136 - 145 mmol/L MetroHealthUrea nitrogen [Mass/Vol]21 mg/dL7 - 25 mg/dLMetroHealthCBC WITH DIFFERENTIALOrdered By: Mary White on 89-35-7446Emdksiwah (Bld) [#/Vol]0.05 10*3/uL0.00 - 0.20 K/uLMetroHealthBasophils/100 WBC (Bld)0.5 %NINF - 1.9 % MetroHealthEosinophils (Bld) [#/Vol]0.20 10*3/uL0.00 - 0.70 K/uLMetroHealth Eosinophils/100 WBC (Bld)2.2 %0.1 - 4.0 %MetroHealthErythrocyte distribution width (RBC) [Ratio]14.2 %11.5 - 14.5 %MetroHealthHematocrit (Bld) [Volume fraction]29.5 %Low36.0 - 46.0 %MetroHealthHemoglobin (Bld) [Mass/Vol]10.0 g/dL Low12.0 - 15.0 g/dLMetroHealthInterpretation and review of laboratory results AbnormalMetroHealthLymphocytes (Bld) [#/Vol]0.96 10*3/uLLow1.00 - 4.80 K/uL MetroHealthLymphocytes/100 WBC (Bld)10.6 %Low24.0 - 44.0 %MetroHealthMCH (RBC) [Entitic mass]30.8 pg26.0 - 34.0 pgMetroHealthMCHC (RBC) [Mass/Vol]33.7 g/dL32.0 - 35.9 g/dLMetroHealthMCV (RBC) [Entitic vol]91 fL80 - 100 fLMetroHealth Monocyte distribution width Auto (Bld) [Entitic vol]23HighNINF - 20[facility] Monocytes (Bld) [#/Vol]0.56 10*3/uL0.20 - 1.00 K/uLMetroHealthMonocytes/100 WBC (Bld)6.2 %2.0 - 11.0 %MetroHealthNeutrophils (Bld) [#/Vol]7.27 10*3/uL1.50 - 8.00 K/uLMetroHealthNeutrophils/100 WBC (Bld)80.6 %High31.0 - 76.0 %[facility] Platelet mean volume (Bld) [Entitic vol]6.9 fLLow7.5 - 11.2 fLMetroHealth Platelets (Bld) [#/Vol]272 10*3/uL150 - 400 K/uLMetroHealthRBC (Bld) [#/Vol]3.23 10*6/uLLowMetroHealthWBC (Bld) [#/Vol]9.0 10*3/uL4.5 - 11.5 K/uLMetroHealth MetroHealthCBC w/ Auto Diffon 18-31-7996Nzkbrncmr/100 WBC (Bld)0.5 %Normal 0.0-2.0[facility]cyrus HospitalComment on above:Performed By: #### [id number] #### [facility] [address], [place] [address]Gshlmoare/Leukocytes Auto (Bld) [Pure # fraction]0.0 E9/LNormal 0.0-0.2FWright-Patterson Medical CenterComment on above:Performed By: #### [id number] #### [facility] [address] [place] [address]Fypiaaedwas (Bld) [#/Vol]0.2 E9/LNormal0.0-0.5FWright-Patterson Medical CenterComment on above:Performed By: #### [id number] #### [facility] [address], [place] [address]Xvptlnapats/100 WBC (Bld)2.5 %Normal0.0-8.0[facility] HospitalComment on above:Performed By: #### [id number] #### [facility] [address], [place] [address]Tasfdtqcbnq distribution width (RBC) [Ratio]14.5 %High10.9-14.2 [facility] HospitalComment on above:Performed By: #### [id number] #### [facility] [address], [place] [address]Yaevydzvpl (Bld) [Volume fraction]30.1 %Low34.0-46.0[facility] HospitalComment on above:Performed By: #### [id number] #### [facility] [address], [place] [address]Chyjsxufrv (Bld) [Mass/Vol]10.0 g/dLLow12.0-16.0[facility] HospitalComment on above:Performed By: #### [id number] #### [facility] [address] [place] [address]Qtdgpumtxas (Bld) [#/Vol]0.8 E9/LLow1.0-4.0[facility] HospitalComment on above:Performed By: #### [id number] #### [facility] [address] [place] [address]65Quvojubvftx/100 WBC (Bld)9.0 %Low14.0-50.0[facility] HospitalComment on above:Performed By: #### [id number] #### [facility] [address] [place] [address] 07469HZD (RBC) [Entitic mass]30.0 jzAzrlnd89.0-34.0[facility] HospitalComment on above:Performed By: #### [id number] #### [facility] [address] [place] [address]TYOU (RBC) [Mass/Vol]33.1 g/xQXhlaeq68.4-36.0[facility] HospitalComment on above:Performed By: #### [id number] #### [facility] [address] [place] [address] 20758DOX (RBC) [Entitic vol]90.4 eCYemfuk19.0-100.0[facility] HospitalComment on above:Performed By: #### [id number] #### [facility] [address] [place] [address]Dalcpthfr (Bld) [#/Vol]0.7 E9/LNormal0.2-1.0[facility] HospitalComment on above:Performed By: #### [id number] #### [facility] [address] [place] [address]Yxbnslptjdy (Bld) [#/Vol]7.0 E9/LNormal2.0-7.5FWright-Patterson Medical CenterComment on above:Performed By: #### [id number] #### [facility] [address] [place] [address]Oxhgmduztya/100 WBC (Bld)80.3 %High36.0-75.0[facility] HospitalComment on above:Performed By: #### [id number] #### [facility] [address] [place] [address]96[address]Ioijhbul mean volume (Bld) [Entitic vol]6.8 fLNormal6.4-10.8 [facility] HospitalComment on above:Performed By: #### [id number] #### [facility] [address] [place] [address]Lhnonwumr (Bld) [#/Vol]303.0 E9/ZCrpleb619.0-500.0[facility] HospitalComment on above:Performed By: #### [id number] #### [facility] [address] [place] [address]HVL (Bld) [#/Vol]3.3 E12/LLow4.3-5.9[facility] Comment on above:Performed By: #### [id number] #### [facility] [address] [place] [address]55[address]LZZ corrected for nucl RBC Auto (Bld) [#/Vol]8.8 E9/LNormal 4.0-11.0[facility] HospitalComment on above:Performed By: #### [id number] #### [facility] [address] [place] [address]UOERDJVYVLbigwxt By: SYSTEM SYSTEM on 53-44-5267Ynipxgc [Mass/Vol]3.5 g/dLNormal3.3 - 5.0 gm/dLRemisol ChemAlbumin/Globulin [Mass ratio] 1.1 {ratio}Normal1.1 - 2.2Remisol ChemALP [Catalytic activity/Vol]58 [iU]/d Lxylpa69 - 98 Int._Unit/LRemisol ChemALT No additional P-5'-P [Catalytic activity/Vol]11 [iU]/dNormal6 - 46 Int._Unit/LRemisol ChemAnion gap [Moles/Vol] 12 mmol/LNormal6 - 16 mEq/LRemisol ChemAST [Catalytic activity/Vol]14 [iU]/d Normal5 - 43 Int._Unit/LRemisol ChemBilirubin [Mass/Vol]0.4 mg/dLNormal0.0 - 1.1 mg/dLRemisol ChemBilirubin.direct [Mass/Vol]0.1 mg/dLNormal0.0 - 0.4 mg/dL Remisol ChemBilirubin.indirect [Mass or moles/Vol]0.3 mg/dLNormal0.1 - 0.9 mg/dL Remisol ChemCalcium [Mass/Vol]9.1 mg/dLNormal8.9 - 11.1 mg/dLRemisol Chem Chloride [Moles/Vol]102 mmol/UOmdibw853 - 111 mmol/LRemisol ChemCO2 [Moles/Vol] 24 mmol/ESlhhhn25 - 31 mmol/LRemisol ChemCreatinine [Mass/Vol]0.8 mg/dLNormal0.5 - 1.3 mg/dLRemisol WvhfcOTX21 mL/min/1.73 a3Jcvmqy>=59mL/min/1.73 v0Mqungdf ChemGlobulin (S) [Mass/Vol]3.1 g/dLNormal1.4 - 4.0 gm/dLRemisol ChemGlucose [Mass/Vol]149 mg/pTDbbfxp96 - 199 mg/dLRemisol ChemPotassium [Moles/Vol]3.8 mmol/LNormal3.5 - 5.3 mmol/LRemisol ChemProtein [Mass/Vol]6.6 g/dLNormal6.0 - 7.8 gm/dLRemisol ChemSodium [Moles/Vol]134 mmol/TSnc704 - 145 mmol/LRemisol Chem Troponin HS5.10 pg/mLLow10.10 - 27.10 pg/mLRemisol ChemComment on above: Interpretive Data: The 95% CI (Confidence Interval) PPV (Positive Predictive Value) for myocardial infarction in females is 38 pg/mL, in males 51 pg/mL. The results should be used in conjunction withclinical conditions of myocardial infarction. (Access High Sensitivity Troponin I Instructions For Use, Raegan Nolan, October 2017)Urea nitrogen [Mass/Vol]24 mg/dLHigh5 - 21 mg/dLRemisol ChemUrea nitrogen/Creatinine [Mass ratio]30 mg/zcRhnn35 - 20Remisol ChemCHEMISTRYOrdered By: Lab ROPUser on 14-28-1334Xacsfkk [Mass/Vol]133 mg/qLPldk31 - 99 mg/dLPARKSIDE PSYCH[facility]ATR[facility] [place] POC SubsectionComment on above:Result Comment: Cleaned MeterPOC Device SN [id number] 1Invalid Interpretation CodeFT POC SubsectionPOC User [id number] 1Invalid Interpretation CodeFT POC SubsectionPOC UsernameSISCO, JUSTINInvalid Interpretation CodePARKSIDE PSYCHIATRIC [facility] [place] POC SubsectionCT Head WO contrastOrdered By: Allan Lawrence on 74-37-2521MX DBB5679.1 (mGy.cm)[facility] Work Phone: cT SeriesHeadMetroHealth Work Phone: cTDI VOL62.0 (mGy)[facility] Work Phone: PHANTOM TYPEIEC Head Dosimetry PhantomMetroHealth Work Phone: [facility] Work Phone: cT Head WO contraston 50-25-8366GPZMMDNLXTH: CT HEAD W/O CONTRAST 08/12/2023 11:02 PM [...] shift. Right lateral ventricular entrapment. MACRO: None Allan Pierre MD - 08/12/2023 EXAMINATION: CT HEAD W/O [...] shift. Right lateral ventricular entrapment. MACRO: None MetroHealthRadiology Study observation (narrative)MetroHealthCapillary Glucose POCon 17-80-2170Tpcobua [Mass/Vol]133 mg/iFRetw26-72KtjnfmAvita Health System [facility] Hospital Comment on above:Result Comment: Cleaned MeterPerformed By: #### [id number] #### [facility] [address] [place] [address]Svepclv for Treatmenton 23-86-4820Shzujnt for Treatment [id number]#1.00TIFFNormalCleveland Clinic Clinical Summaryon 81-21-1315KI Clinical Summary [address] [address] ED Clinical Summary Person Information Name: CARLY MARCELINO/[place] Age: 83 Years : 1940 Sex: Female Language: Haitian PCP: HARDEEP MCKENZIE DO Marital Status: Phone: [phone] Visit Id: Visit Reason: Altered mental status; [...] 08/12/2023 18:42:12 08/12/2023 18:42:12 08/12/2023 18:42:12 ADDRESS: [facility] [address] [place] [phone] PHYS DOC NOTES: MEDICAL INFORMATION: Prescriptions Given: [...] hematoma; Altered mental status; Nontraumatic chronic subdural hemorrhageArthurCrystal Clinic [facility] Clinical Summary [address] [address] ED Clinical Summary Person Information Name: CARLY MARCELINO/[facility] Age: 83 Years : 1940 Sex: Female Language: Haitian PCP: HARDEEP MCKENZIE DO Marital Status: Phone: [phone] Visit Id: Visit Reason: Altered mental status; [...] 08/12/2023 17:16:04 08/12/2023 17:16:04 08/12/2023 17:16:04 ADDRESS: [address] [place] [phone] PHYS DOC NOTES: MEDICAL INFORMATION: Prescriptions Given: [...] hematoma; Altered mental status; [facility]raumatic [facility]Gal[facility] Patient Education Noteon 18-67-7745RN Patient Education NoteNoTriHealth Patient Education NoteNoSS[facility] Patient Summaryon 88-90-4590VT Patient Summary [place] [address] Patient Discharge Instructions Person Information Name: CARLY MARCELINO Age: 83 Years Arrival Date: 08/12/2023 15:56:20 Discharge Diagnosis: Acute on chronic intracranial subdural hematoma; Altered mental status; Nontraumatic chronic subdural hemorrhage Primary Care Physician: HARDEEP MCKENZIE DO Provider Information Primary Provider: James Nguyen MD Advanced Ecotherapist:Aurea Pichardo PA-C The exam and treatment you received in the Emergency Department were for an urgent problem and are not intended as complete care. It is important that you follow up with a doctor, nurse practitioner,or physician?s workforce development assistant for ongoing care. If your symptoms [...] opioids can be used to help relieve fmlgtfaj-hz-ntnkzo pain and are often prescribed following a [...] and have fewer risks and side effects. Optionsmay include: ? Pain relievers such as acetaminophen, [...] unused prescription opioids: Find your community drug take- back program or Drink[employer] mail-back program, or flush them down the toilet, following guidance from the Food and Drug Administration (www.fda.gov/Drugs/ResourcesForYou). ? Visit www.cdc.gov/drugoverdose to learn about the risks of opioids abuse and overdose. ? If you believe you may be struggling with addiction, tell your health neonatal intensive care nurse and ask for guidance or call [facility] National Helpline at 5-571-152-TZUI. j Source: US Department of Health and Human Services/Center for Disease Control & Pre (more content not included)...[facility]ED [facility] [place] [address] Patient Discharge Instructions Person Information Name: CARLY MARCELINO Carolyn Age: 83 Years Arrival Date: 08/12/2023 15:56:20 Discharge Diagnosis: Acute on chronic intracranial subdural hematoma; Altered mental status; Nontraumatic chronic subdural hemorrhage Primary Care Physician: HARDEEP MCKENZIE DO Provider Information Primary Provider: Advanced Ecotherapist:Aurea Pichardo PA-C The exam and treatment you received in the Emergency Department were for an urgent problem and are not intended as complete care. It is important that you follow up with a doctor, nurse practitioner,or physician?s workforce development assistant for ongoing care. If your symptoms [...] opioids can be used to help relieve iyvzczxv-ws-hbzpkl pain and are often prescribed following a [...] and have fewer risks and side effects. Optionsmay include: ? Pain relievers such as acetaminophen, [...] unused prescription opioids: Find your community drug take- back program or [employer] mail-back program, or flush them down the toilet, following guidance from the Food and Drug Administration (www.fda.gov/Drugs/ResourcesForYou). ? Visit www.cdc.gov/drugoverdose to learn about the risks of opioids abuse and overdose. ? If you believe you may be struggling with addiction, tell your health neonatal intensive care nurse and ask for guidance or call [facility]?S National Helpline at 1-472-370-ESYF. d Source: US Department of Health and Human Services/Center for Disease Control & Prevention [place] (more content not included)...[facility] JacksonEMS Documentationon 91-50-6742WMS DocumentationPlease click on link to see reportNoBerger HospitalComment on above:Result Comment: Missing Attachment - total size limit for all attachments exceeded ekgattachments.pdf Can be viewed in source systemETHANOL, SERUMon 70-45-7663Bvtojqr [Mass/Vol]mg/dL None Detected mg/dLMetroHealthHEMATOLOGYOrdered By: SYSTEM SYSTEM on 08-12-2023 Basophils/100 WBC (Bld)0.5 %Normal0.0 - 2.0 %Remisol HemeBasophils/Leukocytes Auto (Bld) [Pure # fraction]0.0 E9/LNormal0.0 - 0.2 E9/LRemisol HemeEosinophils (Bld) [#/Vol]0.2 E9/LNormal0.0 - 0.5 E9/LRemisol HemeEosinophils/100 WBC (Bld) 2.5 %Normal0.0 - 8.0 %Remisol HemeErythrocyte distribution width (RBC) [Ratio] 14.5 %High10.9 - 14.2 %Remisol HemeHematocrit (Bld) [Volume fraction]30.1 %Low 34.0 - 46.0 %Remisol HemeHemoglobin (Bld) [Mass/Vol]10.0 g/dLLow12.0 - 16.0 gm/dLRemisol HemeLymphocytes (Bld) [#/Vol]0.8 E9/LLow1.0 - 4.0 E9/LRemisol Heme Lymphocytes/100 WBC (Bld)9.0 %Low14.0 - 50.0 %Remisol HemeMCH (RBC) [Entitic mass]30.0 yqPvfkpz29.0 - 34.0 pgRemisol HemeMCHC (RBC) [Mass/Vol]33.1 g/dLNormal 31.4 - 36.0 gm/dLRemisol HemeMCV (RBC) [Entitic vol]90.4 gBWvttsk41.0 - 100.0 fL Remisol HemeMonocytes (Bld) [#/Vol]0.7 E9/LNormal0.2 - 1.0 E9/LRemisol Heme Monocytes/100 WBC (Bld)7.7 %Normal4.0 - 14.0 %Remisol HemeNeutrophils (Bld) [#/Vol]7.0 E9/LNormal2.0 - 7.5 E9/LRemisol HemeNeutrophils/100 WBC (Bld)80.3 % High36.0 - 75.0 %Remisol HemePlatelet mean volume (Bld) [Entitic vol]6.8 fL Normal6.4 - 10.8 fLRemisol HemePlatelets (Bld) [#/Vol]303.0 E9/KMoxkzu585.0 - 500.0 E9/LRemisol HemeRBC (Bld) [#/Vol]3.3 E12/LLow4.3 - 5.9 E12/LRemisol Heme WBC corrected for nucl RBC Auto (Bld) [#/Vol]8.8 E9/LNormal4.0 - 11.0 E9/L Remisol HemeHIV 1 and 2 Ab and HIV 1 p24 Ag panel IAon 68-65-0867BOZ 1+2 Ab+HIV1 p24 Ag IA BcDfb-SohxtwjdFza-CzyrqrrcUlojcZfjvqyHdwbgzx on above:No laboratory evidence for HIV Infection. Negative result does not rule out acute HIV infection. Ifacute HIV infection is suspected, recommend ordering an HIV-1 RNA quanitification test.Interpretation and review of laboratory resultsNormal [facility] HIV Information: [place] Rev. code 3701.243(E): This information has been disclosed to you from confidential records protected from disclosure by state law. You shall make no further disclosure of this information without the specific, written, and informed release of the individual to whom it pertains, or as otherwise permitted by state law. A g eneral authorization for the release of medical or other information is not sufficient for the purpose of the release of HIV test results or diagnoses. MetroHealthMetroHealthHep Func Panelon 17-89-4225Osppdyo [Mass/Vol]3.5 g/dL Normal3.3-5.0[facility] HospitalComment on above:Performed By: #### [id number] #### [facility] [address], [place] [address]Bfxnlli/Globulin (S) [Mass conc ratio]1.1Lhorfw1.1-2.2FWright-Patterson Medical CenterComment on above:Performed By: #### [id number] #### [facility] [address], [place] [address]BXT [Catalytic activity/Vol]58 Int._Unit/RXrrdbv35-03UguamiAvita Health System Bucyrus HospitalComment on above:Performed By: #### [id number] #### [facility] [address], [place] [address]VBN No additional P-5'-P [Catalytic activity/Vol]11 Int._Unit/L Normal6-46[facility] HospitalComment on above:Performed By: #### [id number] #### [facility] [address], [place] [address]HUC [Catalytic activity/Vol]14 Int._Unit/LNormal5-43[facility] HospitalComment on above:Performed By: #### [id number] #### [facility] [address], [place] [address]Hzvafadct [Mass/Vol]0.4 mg/dLNormal0.0-1.1FWright-Patterson Medical CenterComment on above:Performed By: #### [id number] #### [facility] [address], [place] [address]Tnrjkkxde.direct [Mass/Vol]0.1 mg/dLNormal0.0-0.4FWright-Patterson Medical CenterComment on above:Performed By: #### [id number] #### [facility] [address], [place] [address]Gsboversn.indirect [Mass or moles/Vol]0.3 mg/dLNormal0.1-0.9 [facility] HospitalComment on above:Performed By: #### [id number] #### [facility] [address], [place] [address]Aizwavle (S) [Mass/Vol]3.1 g/dLNormal1.4-4.0[facility] HospitalComment on above:Performed By: #### [id number] #### [facility] [address] [place] [address]Gyexeij [Mass/Vol]6.6 g/dLNormal6.0-7.8[facility] HospitalComment on above:Performed By: #### [id number] #### [facility] [address] [place] [address]KRNKSC ACIDOrdered By: Saul Miller on 04-01-1597Xuwnsjibvwaghf and review of laboratory resultsNormalMetroHealthLactate [Moles/Vol]1.0 mmol/L 0.5 - 1.6 mmol/LMetroHealthMetroHealthLaboratory - Blood bankon 49-14-6770DPF and Rh group Nom (Bld)Blood group A Rh(D) positiveMetroHealthMonitor Recordon 42-58-2225Hjpnxnh [id number]#1.00TIFFNormal [facility] HospitalNo Panel Informationon 03-58-6412Navjbfvigeeonc and review of laboratory resultsNormalMetroHealthMetroHealthOutside Recordson 64-04-3382Vysyukd [id number]#1.00TIFF [facility] – JacksonPROTHROMBIN TIME AND INROrdered By: Antonia Kauffman on 32-16-3257GPH Coag (PPP) [Relative time][facility]roHealthComment on above: CLOT This is a corrected result. Previous result on 08/12/2023 at 2019 EDT was 0.96 PT Coag (PPP) [Time]MetroHealthComment on above:CLOT This is a corrected result. Previous result on 08/12/2023 at 2019 EDT was 10.7 sec MetroHealthPre-Arrival Noteon 20-32-6435Mzr-Arrival NotePre-Arrival Summary Name: , ncems Current Date: 08/12/2023 15:56:55 EDT Gender: Female Date of : Age: 83 Pre-Arrival Type: EMS ETA: 08/12/2023 16:10:00 EDT Primary Care Physician: Presenting Problem: ams Pre-Arrival User: Herbert Brock RN Referring Source: Location: CT Completion Date/Time: 08/12/2023 15:41:00 [facility] Emergency Department Pre-Hospital Report Form Vital Signs: Pre-Hospital Report:more confused than normal, hx subdural 2-3 wks ago, hx cva Treatment in Route: Response to Treatment: Misc. Issues:[facility] JacksonProgress Note-Physicianon 46-48-4235Ddbqnxzm Note-PhysicianTrauma brief note Patient with recent fall on 07/28 had a left SDH and was transferred to [facility]. She presents again today with increasing confusion. Normally A&O x 3, now is oriented only to self. Repeat head CT demonstrates acute on chronic SDH with midline shift. Takes ASA and has been on prophylactic dose lovenox, but no other blood thinners. Reviewed imaging and discussed with ED. Recommend 3% saline and transfer to [facility] for NSGY evaluation, +/- craniotomy, likely MMA embolization. 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 Omalley.NormalAvita Health System Bucyrus HospitalComment on above:Result Comment: Electronically Signed By: Nash VICTOR, Pauline Reyna.chepe\Date and Time Signed: 08/12/23 17:36 EDTTYPE AND SCREENon 21-15-7107Arfwy group antibody screen QlNegativeMetroHealthMetroHealth Transfer Documentson 28-33-2363Utlywoen Documents [id number]#1.00TIFFNormalAvita Health System Bucyrus HospitalTroponin 0 Hr.on 90-90-7205Pyglvxru HS5.10 pg/mLLow10.10-27.10[facility] HospitalComment on above:Result Comment: The 95% CI (Confidence Interval) PPV (Positive Predictive Value) for myocardial infarction in females is 38 pg/mL, in males 51 pg/mL. The results should be used in conjunction with cli nical conditions of myocardial infarction. (Access High Sensitivity Troponin I Instructions For Use, Raegan Nolan, October 2017)Performed By: #### [id number] #### [facility] [address], [place] [address]rLMQfb 01-14-8527pYWL96 mL/min/1.73 m5Omeqcf>=59[facility] HospitalComment on above:Order Comment: Order added by Discern Expert. Performed By: #### [id number] #### [facility] [address], [place] [address]Yyereloyr Auto (Bld) [#/Vol]on 71-15-9533Hrkbswpzc (Bld) [#/Vol]0.0 10 3/uL0.0-0.1FWilson Memorial HospitalBasophils/100 WBC Auto (Bld)on 27-05-1356Boxggaixw/100 WBC (Bld)0.6 %0.2-2.0[facility] Medical CenterEosinophils/100 WBC Auto (Bld)on 75-18-0224Qbgtgsscokf/100 WBC (Bld)3.9 % 0.9-7.0[facility] Medical CenterErythrocyte distribution width Auto (RBC) [Ratio]on 55-94-8157Thesghpuvte distribution width (RBC) [Ratio]14.3 % 11.0-15.0[facility] Medical CenterEstimated glomerular filtration rate (GFR) non- Americanon 14-73-9723UZV/1.73 sq M.predicted among non-blacks MDRD (S/P/Bld) [Vol rate/Area]mL/min/{1.73_m2}>=60[facility] Medical CenterGlobulin Calc (S) [Mass/Vol]on 73-38-0343Rakwjvas (S) [Mass/Vol]3.7 g/dL [facility] Medical CenterGlucose mean value [Mass/volume] in Blood Estimated from glycated hemoglobinon 02-80-2452Htrqevl glucose Estimated from glycated hemoglobin (Bld) [Mass/Vol]97 mg/dLCincinnati Children'S Hospital Medical Center Hematocrit Auto (Bld) [Volume fraction]on 58-28-7318Smemokqvhi (Bld) [Volume fraction]27.6 %Low36.0-48.0[facility] Medical CenterHemoglobin [Mass/volume] in Bloodon 67-76-0827Zuuwjymikf (Bld) [Mass/Vol]8.7 g/dLLow 12.0-16.0[facility] CenterLaboratory - Chemistry and Chemistry - challengeon 06-00-7507Yqijblj [Mass/Vol]2.7 g/dLLow3.4-5.0[facility] CenterALP [Catalytic activity/Vol]72 U/Y80-521QwnmtinwwCincinnati [facility]'S Hospital Medical CenterALT [Catalytic activity/Vol]27 U/M69-08PucarkryaCincinnati Children'S Hospital [facility] Center AST [Catalytic activity/Vol]21 U/G24-09RfjzmouvuCincinnati [facility]S [facility] Bilirubin [Mass/Vol]0.5 mg/dL0.2-1.0[facility] CenterCalcium [Mass/Vol]8.8 mg/dL8.5-10.1FWilson Memorial HospitalChloride [Moles/Vol] 102 mmol/X15-688PzlndoknsCincinnati Children'S Hospital Medical CenterCO2 [Moles/Vol]31.7 mmol/L 21.0-32.0[facility] CenterCreatinine [Mass/Vol]0.82 mg/dL 0.55-1.02[facility] CenterGFR/1.73 sq M.predicted MDRD (S/P/Bld) [Vol rate/Area]mL/min/{1.73_m2}>=60[facility] CenterGlucose [Mass/Vol]83 mg/gT50-317PdjkfnqvgCincinnati Children'S Hospital Medical CenterMagnesium [Mass/Vol]1.8 mg/dL1.8-2.4FWilson Memorial HospitalPotassium [Moles/Vol]4.0 mmol/L 3.5-5.1FWilson Memorial HospitalProtein [Mass/Vol]6.4 g/dL6.4-8.2 [facility] Hospitalodium [Moles/Vol]137 mmol/X680-494IzrqrfdhyCincinnati Children'S Hospital Medical CenterTSH Qn4.268 m[IU]/LHigh0.358-3.740[facility] CenterUrea nitrogen [Mass/Vol]14.0 mg/dL7.0-18.0[facility] CenterUrea nitrogen/Creatinine [Mass ratio]17.1 mg/mgCincinnati Children'S Hospital Medical CenterLaboratory - Hematology and Cell countson 19-78-2146GkP2w (Bld) [Mass fraction]5.0 %4.5-6.2FWilson Memorial HospitalComment on above:ADA RECOMMENDED LIMIT 4.0 - 6.0ADA THERAPEUTIC TARGET < 7.0ACTION SUGGESTED> 7.0 Immature granulocytes/100 WBC (Bld)1.0 %High0.0-0.5FWilson Memorial HospitalLeukocytes [#/volume] corrected for nucleated erythrocytes in Blood by Automated counon 36-05-3301WOD corrected for nucl RBC Auto (Bld) [#/Vol]7.3 10 3/uL4.0-11.0[facility] CenterLymphocytes Auto (Bld) [#/Vol]on 57-02-2895Nnrcgihcbwb (Bld) [#/Vol]1.0 10 3/uLLow1.2-3.8[facility] CenterLymphocytes/100 WBC Auto (Bld)on 18-04-6426Sklbfihvwcg/100 WBC (Bld)13.1 %Low20.5-60.0[facility] HospitalH Auto (RBC) [Entitic mass]on 05-16-2245WMH (RBC) [Entitic mass]29.9 pg26.7-34.0[facility] CenterMCHC Auto (RBC) [Mass/Vol]on 95-91-5105SRCU (RBC) [Mass/Vol]31.5 g/dL29.9-35.2FWilson Memorial HospitalMCV Auto (RBC) [Entitic vol]on 05-08-7253FIF (RBC) [Entitic vol]94.8 fL81.0-99.0[facility] CenterMonocytes Auto (Bld) [#/Vol]on 70-36-7874Pppqoppsr (Bld) [#/Vol]0.7 10 3/uL0.3-0.8[facility] CenterMonocytes/100 WBC Auto (Bld)on 53-78-1696Ypwdpuzvk/100 WBC (Bld)9.9 %1.7-12.0[facility] Neutrophils Auto (Bld) [#/Vol]on 59-65-5189Hvnqrbmcbre (Bld) [#/Vol]5.2 10 3/uL 1.4-6.5FWilson Memorial HospitalNeutrophils/100 WBC Auto (Bld)on 32-94-4961Bpkdkpditrh/100 WBC (Bld)71.5 %43.0-75.0[facility] CenterNo Panel Informationon 131055-Bqydfoa Vitamin D Total38.6 ng/mL [facility] CenterComment on above:<20 ng/mL Vit D nfkqgmedr83- <30 ng/mL Vit D mbgxwreenphk70-247 ng/mL Vit D sufficient>100 ng/mL Potential ToxicityEosinophils # (Auto)0.3 10 3/uL0.0-0.7FWilson Memorial Hospital Immature Granulocyte # (Auto)0.07 10 3/uLHigh0.00-0.03[facility] CenterLevetiracetam (Keppra) Level20.3 ug/mL10.0-40.0[facility] CenterComment on above:Performed at: - [facility] [id number] Director: Jamie Klein MD, Phone: [phone] Platelet mean volume Auto (Bld) [Entitic vol]on 88-45-6947Egwkhjfj mean volume (Bld) [Entitic vol]9.2 fLLow9.5-13.5FWilson Memorial HospitalPlatelets Auto (Bld) [#/Vol]on 68-16-2455Mnoeheqwz (Bld) [#/Vol]284 10 3/yC662-566 [facility] CenterRBC Auto (Bld) [#/Vol]on 77-24-0694WVR (Bld) [#/Vol]2.91 10 6/uLLow4.20-5.40[facility] Hospitalerum or plasma albumin/globulin mass ratioon 54-41-6743Rzwdepi/Globulin [Mass ratio]0.7 {ratio} [facility] Hospitalerum or plasma anion gap determinationon 14-88-5277Fzjzd gap [Moles/Vol]7.3 mmol/LFWilson Memorial HospitalBasic metabolic 2000 panelon 32-62-8178Yaelw gap [Moles/Vol]11 mmol/L10 - 20 [facility]Calcium [Mass/Vol]8.3 mg/dLLow8.6 - 10.3 mg/dLMetroHealthChloride [Moles/Vol]102 mmol/L98 - 107 mmol/LMetroHealthCO2 [Moles/Vol]27 mmol/L21 - 31 mmol/LMetroHealthCreatinine [Mass/Vol]0.71 mg/dL0.60 - 1.20 mg/dLMetroHealth GFR/1.73 sq M.predicted CKD-EPI (S/P/Bld) [Vol rate/Area]84- PINFMetroHealth Comment on above:2020 CKD EPI Equation using Creatinine without Race [...] Med 1 Vol. 385 Issue 19 Pages 3360-2800 Glucose [Mass/Vol]100 mg/dL74 - 109 mg/dLMetroHealthInterpretation and review of laboratory resultsAbnormalMetroHealthPotassium [Moles/Vol]4.3 mmol/L3.5 - 5.0 mmol/LMetroHealthSodium [Moles/Vol]136 mmol/L136 - 145 mmol/LMetroHealthUrea nitrogen [Mass/Vol]18 mg/dL7 - 25 mg/dLMetroHealthCBC panel Auto (Bld)on 07-97-1570Xlkhwxzgtps distribution width (RBC) [Ratio]14.4 %11.5 - 14.5 % [facility]HealthHematocrit (Bld) [Volume fraction]26.4 %Low36.0 - 46.0 %[facility] Hemoglobin (Bld) [Mass/Vol]8.9 g/dLLow12.0 - 15.0 g/dLMetroHealthInterpretation and review of laboratory resultsAbnormalMetroHealthMCH (RBC) [Entitic mass]30.9 pg26.0 - 34.0 pgMetroHealthMCHC (RBC) [Mass/Vol]33.8 g/dL32.0 - 35.9 g/dL [facility]MCV (RBC) [Entitic vol]92 fL80 - 100 fLMetroHealthPlatelet mean volume (Bld) [Entitic vol]7.8 fL7.5 - 11.2 fLMetroHealthPlatelets (Bld) [#/Vol] 225 10*3/uL150 - 400 K/uLMetroHealthRBC (Bld) [#/Vol]2.89 10*6/uLLowMetroHealth WBC (Bld) [#/Vol]7.7 10*3/uL4.5 - 11.5 K/uLMetroHealthMetroHealthMAGNESIUMon 48-26-3859Hoinzomjt [Mass/Vol]2.2 mg/dL1.9 - 2.7 mg/dLMetroHealthNo Panel Informationon 39-65-6880Fffsitusospsmz and review of laboratory resultsNormal MetroHealthMetroHealthPHOSPHORUSon 76-63-6582Raopgoyvz [Mass/Vol]2.7 mg/dL2.5 - 5.0 mg/dLMetroHealthBasic metabolic 2000 panelon 12-32-9163Piifi gap [Moles/Vol] 12 mmol/L10 - 20[facility]HealthCalcium [Mass/Vol]8.2 mg/dLLow8.6 - 10.3 mg/dL [facility]HealthChloride [Moles/Vol]102 mmol/L98 - 107 mmol/LMetroHealthCO2 [Moles/Vol]26 mmol/L21 - 31 mmol/LMetroHealthCreatinine [Mass/Vol]0.73 mg/dL0.60 - 1.20 mg/dLMetroHealthGFR/1.73 sq M.predicted CKD-EPI (S/P/Bld) [Vol rate/Area]81- PINFMetroHealthComment on above:2020 CKD EPI Equation using Creatinine without Race Comment: Estimated glomerular filtration rate (eGFR) is calculated without a race coefficient. Values should be interpreted in the context of the patient's full clinical presentation. Reference: 1. Nestor C, Isabella M, aKz DC, et al.. A Unifying Approach for GFR Estimation: Recommendations of the NKF-ASN Task Force on Reassessing the Inclusion of Race in Diagnosing Kidney Disease. AmericanJournal of Kidney Diseases 202;79(2):268-88.e1. 2. N Engl J Med 1 Vol. 385 Issue 19 Pages 7195-2312 Glucose [Mass/Vol]104 mg/dL74 - 109 mg/dLMetroHealthPotassium [Moles/Vol]4.2 mmol/L3.5 - 5.0 mmol/LMetroHealthSodium [Moles/Vol]136 mmol/L136 - 145 mmol/L [facility]HealthUrea nitrogen [Mass/Vol]17 mg/dL7 - 25 mg/dLMetroHealthCBC panel Auto (Bld)on 03-41-7411Gyuqocgvbem distribution width (RBC) [Ratio]14.3 %11.5 - 14.5 %[facility]HealthHematocrit (Bld) [Volume fraction]30.5 %Low36.0 - 46.0 %[facility] Hemoglobin (Bld) [Mass/Vol]9.8 g/dLLow12.0 - 15.0 g/dLMetroHealthInterpretation and review of laboratory resultsAbnormalMetroHealthMCH (RBC) [Entitic mass]29.2 pg26.0 - 34.0 pgMetroHealthMCHC (RBC) [Mass/Vol]32.1 g/dL32.0 - 35.9 g/dL [facility]MCV (RBC) [Entitic vol]91 fL80 - 100 fLMetroHealthPlatelet mean volume (Bld) [Entitic vol]7.3 fLLow7.5 - 11.2 fLMetroHealthPlatelets (Bld) [#/Vol]237 10*3/uL150 - 400 K/uLMetroHealthRBC (Bld) [#/Vol]3.34 10*6/uLLow [facility]HealthWBC (Bld) [#/Vol]8.7 10*3/uL4.5 - 11.5 K/uLMetroHealthMetroHealth MAGNESIUMon 42-84-2409Qzzrcaxvdmpkbt and review of laboratory resultsNormal [facility]HealthMagnesium [Mass/Vol]2.0 mg/dL1.9 - 2.7 mg/dLMetroHealthNo Panel Informationon 32-25-4479Dbekbxrzqgblhx and review of laboratory resultsAbnormal MetroHealthMetroHealthPHOSPHORUSon 68-43-6925Mmzsarnvi [Mass/Vol]2.3 mg/dLLow2.5 - 5.0 mg/dLMetroHealthTSHon 92-17-3258Qwtzomkczhnbcg and review of laboratory resultsNormalMetroHealthTSH Qn3.023 m[IU]/LMetroHealthComment on above:Referance range for women as applicable: First Trimester: 0. 050 to 3.700 uIU/mL Second Trimester: 0. 310 to 4.350 uIU/mL Third Trimester: 0. 410 to 5.180 uIU/mL [facility]HealthVITAMIN B12 (CYANOCOBALAMIN)on 70-27-7399Bvtqngfgp (Vitamin B12) [Moles/Vol]900 pg/mL180 - 914 pg/mLMetroHealthComment on above:Note Updated Reference Range.Interpretation and review of laboratory resultsNormalMetroHealth Deficient: <= 145 pg/mL Insufficient: 145 - 180 pg/mL Sufficient: 180 - 914 pg/mL MetroHealthMetroHealthBasic metabolic 2000 panelon 65-38-8647Praqf gap [Moles/Vol]12 mmol/L10 - 20[facility]HealthCalcium [Mass/Vol]8.7 mg/dL8.6 - 10.3 mg/dLMetroHealthChloride [Moles/Vol]104 mmol/L98 - 107 mmol/LMetroHealthCO2 [Moles/Vol]27 mmol/L21 - 31 mmol/LMetroHealthCreatinine [Mass/Vol]0.68 mg/dL0.60 - 1.20 mg/dLMetroHealthGFR/1.73 sq M.predicted CKD-EPI (S/P/Bld) [Vol rate/Area]86- PINFMetroHealthComment on above:2020 CKD EPI Equation using Creatinine without Race [...] Diagnosing Kidney Disease. AmericanJournal of Kidney Diseases 202;79(2):268-88.e1. 2. N Engl J Med 1 Vol. 385 Issue 19 Pages 7847-2360 Glucose [Mass/Vol]93 mg/dL74 - 109 mg/dLMetroHealthPotassium [Moles/Vol]4.0 mmol/L3.5 - 5.0 mmol/LMetroHealthSodium [Moles/Vol]139 mmol/L136 - 145 mmol/L [facility]HealthUrea nitrogen [Mass/Vol]15 mg/dL7 - 25 mg/dLMetroHealthCBC panel Auto (Bld)on 81-96-7548Mlpcwdmczch distribution width (RBC) [Ratio]14.5 %11.5 - 14.5 %[facility]roHealthHematocrit (Bld) [Volume fraction]30.8 %Low36.0 - 46.0 %[facility] Hemoglobin (Bld) [Mass/Vol]9.8 g/dLLow12.0 - 15.0 g/dLMetroHealthInterpretation and review of laboratory resultsAbnormalMetroHealthMCH (RBC) [Entitic mass]29.1 pg26.0 - 34.0 pgMetroHealthMCHC (RBC) [Mass/Vol]31.7 g/dLLow32.0 - 35.9 g/dL [facility]MCV (RBC) [Entitic vol]92 fL80 - 100 fLMetroHealthPlatelet mean volume (Bld) [Entitic vol]7.2 fLLow7.5 - 11.2 fLMetroHealthPlatelets (Bld) [#/Vol]239 10*3/uL150 - 400 K/uLMetroHealthRBC (Bld) [#/Vol]3.36 10*6/uLLow [facility]HealthWBC (Bld) [#/Vol]8.4 10*3/uL4.5 - 11.5 K/uLMetroHealthMetroHealthEKG 12 LEAD - PERFORMon 79-94-4866Idblhhfiw Suspect arm lead reversal, interpretation assumes no reversal Normal sinus rhythm with sinus arrhythmia Right superior axis deviation Abnormal ECG When compared with ECG of 31-JUL-2023 19:38, (unconfirmed) No significant change was found Confirmed by Elsie FLANAGAN GRACE ([id number]) on 08/01/2023 1:56:38 PM MetroHealthP wave Atrium by [id number]-S Aqgsehwg050 msMetroHealthQ-T eqyezioo427 msMetroHealthQ-T interval zlgurkwkx454 msMetroHealthQRS owlt871 degreesMetroHealthQRS duhkaczu85 msMetroHealthT wave jdjf342zaivwqdDdihjHolsan MetroHealthDiagnosisNormal sinus rhythm with sinus arrhythmia Right superior axis deviation Nonspecific ST and T wave abnormality Abnormal ECG No previous ECGs available Confirmed by GEOVANNY PATTON ([id number]) on 08/01/2023 8:05:52 AM MetroHealthP wave Atrium by [id number]-F Vnetfbli799 msMetroHealthQ-T ewnzxcbp113 msMetroHealthQ-T interval keayoocen730 msMetroHealthQRS ewri525 degreesMetroHealthQRS wsisdkyq30 msMetroHealthT wave wwqt727gceylybTnjdgTlcokr MetroHealthMAGNESIUMon 00-25-6588Znrdtamap [Mass/Vol]2.1 mg/dL1.9 - 2.7 mg/dL [facility]No Panel Informationon 77-54-5496Qozkdevmqrtemn and review of laboratory resultsNormalMetroHealthMetroHealthPHOSPHORUSon 03-55-1492Ibfeirhio [Mass/Vol]2.6 mg/dL2.5 - 5.0 mg/dLMetroHealthBasic metabolic 2000 panelon 48-17-4618Tnhyu gap [Moles/Vol]13 mmol/L10 - 20Met[facility]HealthCalcium [Mass/Vol]9.0 mg/dL8.6 - 10.3 mg/dLMetroHealthChloride [Moles/Vol]103 mmol/L98 - 107 mmol/L [facility]HealthCO2 [Moles/Vol]26 mmol/L21 - 31 mmol/LMetroHealthCreatinine [Mass/Vol]0.69 mg/dL0.60 - 1.20 mg/dLMetroHealthGFR/1.73 sq M.predicted CKD-EPI (S/P/Bld) [Vol rate/Area]86- PINFMetroHealthComment on above:202 CKD EPI Equation using Creatinine without Race [...] Med 2020 Vol. 385 Issue 19 Pages 2463-5231 Glucose [Mass/Vol]113 mg/wXOrni60 - 109 mg/dLMetroHealthPotassium [Moles/Vol]3.6 mmol/L3.5 - 5.0 mmol/LMetroHealthSodium [Moles/Vol]138 mmol/L136 - 145 mmol/L [facility]HealthUrea nitrogen [Mass/Vol]12 mg/dL7 - 25 mg/dLMetroHealthCBC panel Auto (Bld)on 95-78-0615Hpdsbctvqgr distribution width (RBC) [Ratio]14.4 %11.5 - 14.5 %MetroHealthHematocrit (Bld) [Volume fraction]31.1 %Low36.0 - 46.0 %[facility] Hemoglobin (Bld) [Mass/Vol]10.4 g/dLLow12.0 - 15.0 g/dLMetroHealthInterpretation and review of laboratory resultsAbnormalMetroHealthMCH (RBC) [Entitic mass]30.6 pg26.0 - 34.0 pgMetroHealthMCHC (RBC) [Mass/Vol]33.4 g/dL32.0 - 35.9 g/dL [facility]MCV (RBC) [Entitic vol]92 fL80 - 100 fLMetroHealthPlatelet mean volume (Bld) [Entitic vol]7.3 fLLow7.5 - 11.2 fLMetroHealthPlatelets (Bld) [#/Vol]238 10*3/uL150 - 400 K/uLMetroHealthRBC (Bld) [#/Vol]3.40 10*6/uLLow [facility]HealthWBC (Bld) [#/Vol]7.7 10*3/uL4.5 - 11.5 K/uLMetroHealthMetroHealth MAGNESIUMon 69-49-7542Ezzvzsjvm [Mass/Vol]1.8 mg/dLLow1.9 - 2.7 mg/dLMetroHealth No Panel Informationon 02-35-2479Gmkasxtresynvf and review of laboratory results AbnormalMetroHealthMetroHealthPHOSPHORUSon 74-20-5162Kuwljhrbx [Mass/Vol]2.4 mg/dLLow2.5 - 5.0 mg/dLMetroHealthBasic metabolic 2000 panelon 06-97-6681Rcgqp gap [Moles/Vol]9 mmol/LLow10 - 20Met[facility]HealthCalcium [Mass/Vol]8.8 mg/dL8.6 - 10.3 mg/dLMetroHealthChloride [Moles/Vol]104 mmol/L98 - 107 mmol/LMetroHealthCO2 [Moles/Vol]30 mmol/L21 - 31 mmol/LMetroHealthCreatinine [Mass/Vol]0.71 mg/dL 0.60 - 1.20 mg/dLMetroHealthGFR/1.73 sq M.predicted CKD-EPI (S/P/Bld) [Vol rate/Area]84- PINFMetroHealthComment on above:2020 CKD EPI Equation using Creatinine without Race [...] Diagnosing Kidney Disease. AmericanJournal of Kidney Diseases 202;79(2):268-88.e1. 2. N Engl J Med 2020 Vol. 385 Issue 19 Pages 6002-8767 Glucose [Mass/Vol]104 mg/dL74 - 109 mg/dLMetroHealthInterpretation and review of laboratory resultsAbnormalMetroHealthPotassium [Moles/Vol]4.0 mmol/L3.5 - 5.0 mmol/LMetroHealthSodium [Moles/Vol]139 mmol/L136 - 145 mmol/LMetroHealthUrea nitrogen [Mass/Vol]18 mg/dL7 - 25 mg/dLMetroHealthCBC panel Auto (Bld)Ordered By: Alley Clay on 42-54-3168Lbtxjkndopc distribution width (RBC) [Ratio]14.5 %11.5 - 14.5 %[facility]roHealthHematocrit (Bld) [Volume fraction]32.4 %Low36.0 - 46.0 %[facility]roHealthHemoglobin (Bld) [Mass/Vol]10.3 g/dLLow12.0 - 15.0 g/dLMetroHealth Interpretation and review of laboratory resultsAbnormalMetroHealthMCH (RBC) [Entitic mass]29.2 pg26.0 - 34.0 pgMetroOhiohealth Nelsonville Health CenterMCHC (RBC) [Mass/Vol]31.9 g/dLLow 32.0 - 35.9 g/dLMetroOhiohealth Nelsonville Health CenterMCV (RBC) [Entitic vol]92 fL80 - 100 fLMetroOhiohealth Nelsonville Health Center Platelet mean volume (Bld) [Entitic vol]7.3 fLLow7.5 - 11.2 fLMetroOhiohealth Nelsonville Health Center Platelets (Bld) [#/Vol]224 10*3/uL150 - 400 K/uLMetroHealthRBC (Bld) [#/Vol]3.53 10*6/uLLowMetroHealthWBC (Bld) [#/Vol]9.1 10*3/uL4.5 - 11.5 K/uLMetroHealth MetroHealthMAGNESIUMon 70-82-7532Vbgkqbwdk [Mass/Vol]1.9 mg/dL1.9 - 2.7 mg/dL [facility] HospitalroOhiohealth [facility] Health CenterNo Panel Informationon 17-52-2869Fbytwoaeyggtcx and review of laboratory resultsNormalMetroChillicothe VA Medical CenterroOhiohealth Nelsonville Health CenterPHOSPHORUSon 35-53-3534Hckztbxqr [Mass/Vol]3.3 mg/dL2.5 - 5.0 mg/dLSelect Medical Cleveland Clinic Rehabilitation Hospital, Edwin ShawABO RH TYPEon 12-00-8871DxsceLjsglg ABO/Rhon 49-92-0333NKV/RhPositiveInvalid Interpretation CodeAvita Health System Bucyrus HospitalComment on above:Performed By: #### [id number] #### [facility] [address], [place] [address]JBO/Rh History Checkon 78-21-2546NVE/Rh History CheckVerified Hx Blood TypeNoBerger HospitalComment on above:Performed By: #### [id number] #### [facility] [address], [place] [address]SMEFek 26-37-6503PWWV Gel InterpNegativeNoBerger HospitalComment on above:Performed By: #### [id number] #### [facility] [address], [place] [address]TCBNM BANKOrdered By: Luis Calixto on 45-79-8634LSM/Rh Interp PositiveInvalid Interpretation CodePARKSIDE PSY[facility] [place] BB SubsectionABSC Gel InterpNegative (07/29/23 11:39 AM)NormalPARKSIDE PSYCHIATRIC HOSP[facility] [place] BB SubsectionBMPon 26-60-0248Ksctm gap [Moles/Vol] 10 mmol/LNormal6-16[facility] HospitalComment on above:Performed By: #### [id number] #### [facility] [address], [place] [address]Ryzesfp [Mass/Vol]8.9 mg/dLNormal8.9-11.1FWright-Patterson Medical CenterComment on above:Performed By: #### [id number] #### [facility] [address], [place] [address]Hevecacs [Moles/Vol]105 mmol/EPwhcrt291-808EtyaedAvita Health System Bucyrus HospitalComment on above:Performed By: #### [id number] #### [facility] [address], [place] [address]JL2 [Moles/Vol]29 mmol/JOfdsbv55-71ScyimpAvita Health System Bucy[facility] Hospital Comment on above:Performed By: #### [id number] #### [facility] [address], [place] [address]Fupikjhczn [Mass/Vol]0.8 mg/dLNormal0.5-1.3FWright-Patterson Medical CenterComment on above:Performed By: #### [id number] #### [facility] [address], [place] [address]Xplktpe [Mass/Vol]94 mg/mFVbedmn69-149VkknavAvita Health System Bucyrus HospitalComment on above:Performed By: #### [id number] #### [facility] [address], [place] [address]Fxlddmzln [Moles/Vol]3.9 mmol/LNormal3.5-5.3FWright-Patterson Medical CenterComment on above:Performed By: #### [id number] #### [facility] [address], [place] [address]Mghqoo [Moles/Vol]140 mmol/AMpmael840-213ThomwoAvita Health System Bucyrus HospitalComment on above:Performed By: #### [id number] #### [facility] [address], [place] [address]Scya nitrogen [Mass/Vol]21 mg/dLNormal5-21[facility] HospitalComment on above:Performed By: #### [id number] #### [facility] [address], [place] [address]Rnsm nitrogen/Creatinine [Mass ratio]26 No ZhdsqNanj32-29WzxjoxAvita Health System Bucyrus HospitalComment on above:Performed By: #### [id number] #### [facility] [address], [place] [address]Kzvqo metabolic 2000 panelon 73-07-8467Zgfex gap [Moles/Vol]13 mmol/L10 - 20MetroHealthCalcium [Mass/Vol]9.3 mg/dL8.6 - 10.3 mg/dLMetroHealth Chloride [Moles/Vol]103 mmol/L98 - 107 mmol/LMetroHealthCO2 [Moles/Vol]29 mmol/L 21 - 31 mmol/LMetroHealthCreatinine [Mass/Vol]0.77 mg/dL0.60 - 1.20 mg/dL [facility]HealthGFR/1.73 sq M.predicted CKD-EPI (S/P/Bld) [Vol rate/Area]76- PINF MetroHealthComment on above:2020 CKD EPI Equation using Creatinine without Race Comment: Estimated glomerular filtration rate (eGFR) is calculated without a race coefficient. Values should be interpreted in the context of the patient's full clinical presentation. Reference: 1. Nestor C, [place] M, Kaz DC, et al.. A Unifying Approach for GFR Estimation: Recommendations of the NKF-ASN Task Force on Reassessing the Inclusion of Race in Diagnosing Kidney Disease. AmericanJournal of Kidney Diseases 202;79(2):268-88.e1. 2. N Engl J Med 2020 Vol. 385 Issue 19 Pages 0150-6599 Glucose [Mass/Vol]103 mg/dL74 - 109 mg/dLMetroHealthInterpretation and review of laboratory resultsNormalMetroHealthPotassium [Moles/Vol]4.1 mmol/L3.5 - 5.0 mmol/LMetroHealthSodium [Moles/Vol]141 mmol/L136 - 145 mmol/LMetroHealthUrea nitrogen [Mass/Vol]18 mg/dL7 - 25 mg/dLMetroHealthMetroHealthAnion gap [Moles/Vol]12 mmol/L10 - 20MetroHealthCalcium [Mass/Vol]9.1 mg/dL8.6 - 10.3 mg/dLMetroHealthChloride [Moles/Vol]102 mmol/L98 - 107 mmol/LMetroHealthCO2 [Moles/Vol]28 mmol/L21 - 31 mmol/LMetroHealthCreatinine [Mass/Vol]0.78 mg/dL0.60 - 1.20 mg/dLMetroHealthGFR/1.73 sq M.predicted CKD-EPI (S/P/Bld) [Vol rate/Area]75- PINFMetroHealthComment on above:2020 CKD EPI Equation using Creatinine without Race Comment: Estimated glomerular filtration rate (eGFR) is calculated without a race coefficient. Values should be interpreted in the context of the patient's full clinical presentation. Reference: 1. Nestor C, [place] M, Kaz FUETNES, et al.. A Unifying Approach for GFR Estimation: Recommendations of the NKF-ASN Task Force on Reassessing the Inclusion of Race in Diagnosing Kidney Disease. AmericanJournal of Kidney Diseases 2021;79(2):268-88.e1. 2. N Engl J Med 1 Vol. 385 Issue 19 Pages 7783-7755 Glucose [Mass/Vol]94 mg/dL74 - 109 mg/dLMetroHealthPotassium [Moles/Vol]4.1 mmol/L3.5 - 5.0 mmol/LMetroHealthSodium [Moles/Vol]138 mmol/L136 - 145 mmol/L MetroHealthUrea nitrogen [Mass/Vol]20 mg/dL7 - 25 mg/dLMetroOhiohealth Nelsonville Health CenterBlood Bank ID# on [id number]#[id number] Interpretation [facility] Comment on above:Performed By: #### [id number] #### [facility] [address] [place], [place] [address]YLQ WITH DIFFERENTIALon 80-37-1168Soherefgr (Bld) [#/Vol]0.06 10*3/uL0.00 - 0.20 K/uLMetroHealthBasophils/100 WBC (Bld)0.7 %NINF - 1.9 % MetroHealthEosinophils (Bld) [#/Vol]0.12 10*3/uL0.00 - 0.70 K/uLMetroHealth Eosinophils/100 WBC (Bld)1.4 %0.1 - 4.0 %MetroHealthErythrocyte distribution width (RBC) [Ratio]14.3 %11.5 - 14.5 %MetroHealthHematocrit (Bld) [Volume fraction]35.7 %Low36.0 - 46.0 %MetroHealthHemoglobin (Bld) [Mass/Vol]12.0 g/dL 12.0 - 15.0 g/dLMetroHealthInterpretation and review of laboratory results AbnormalMetroHealthLymphocytes (Bld) [#/Vol]0.91 10*3/uLLow1.00 - 4.80 K/uL MetroHealthLymphocytes/100 WBC (Bld)10.2 %Low24.0 - 44.0 %[facility]roHealthMCH (RBC) [Entitic mass]30.6 pg26.0 - 34.0 pgMetroHealthMCHC (RBC) [Mass/Vol]33.6 g/dL32.0 - 35.9 g/dLMetroHealthMCV (RBC) [Entitic vol]91 fL80 - 100 fLMetroHealth Monocyte distribution width Auto (Bld) [Entitic vol]17NINF - 20[facility] Monocytes (Bld) [#/Vol]0.50 10*3/uL0.20 - 1.00 K/uLMetroHealthMonocytes/100 WBC (Bld)5.5 %2.0 - 11.0 %MetroHealthNeutrophils (Bld) [#/Vol]7.35 10*3/uL1.50 - 8.00 K/uLMetroHealthNeutrophils/100 WBC (Bld)82.2 %High31.0 - 76.0 %[facility] Platelet mean volume (Bld) [Entitic vol]6.9 fLLow7.5 - 11.2 fLMetroHealth Platelets (Bld) [#/Vol]214 10*3/uL150 - 400 K/uLMetroHealthRBC (Bld) [#/Vol]3.93 10*6/uLLowMetroHealthWBC (Bld) [#/Vol]8.9 10*3/uL4.5 - 11.5 K/uLMetroHealth MetroHealthCBC panel Auto (Bld)on [id number] distribution width (RBC) [Ratio]14.3 %11.5 - 14.5 %MetroHealthHematocrit (Bld) [Volume fraction]38.3 % 36.0 - 46.0 %[facility]roHealthHemoglobin (Bld) [Mass/Vol]12.2 g/dL12.0 - 15.0 g/dL [facility]HealthInterpretation and review of laboratory resultsAbnormalMetroHealthMCH (RBC) [Entitic mass]29.4 pg26.0 - 34.0 pgMetroHealthMCHC (RBC) [Mass/Vol]31.8 g/dLLow32.0 - 35.9 g/dLMetroHealthMCV (RBC) [Entitic vol]92 fL80 - 100 fL MetroHealthPlatelet mean volume (Bld) [Entitic vol]7.0 fLLow7.5 - 11.2 fL MetroHealthPlatelets (Bld) [#/Vol]252 10*3/uL150 - 400 K/uLMetroHealthRBC (Bld) [#/Vol]4.15 10*6/uLMetroHealthWBC (Bld) [#/Vol]8.5 10*3/uL4.5 - 11.5 K/uL MetroHealthMetroHealthCBC w/ Auto Diffon [id number]/100 WBC (Bld)0.7 % Normal0.0-2.0[facility] HospitalComment on above:Performed By: #### [id number] #### [facility] [address] [place] [id number]/Leukocytes Auto (Bld) [Pure # fraction]0.0 E9/LNormal 0.0-0.2FWright-Patterson Medical CenterComment on above:Performed By: #### [id number] #### [facility] [address] [place] [address] [id number] (Bld) [#/Vol]0.2 E9/LNormal0.0-0.5FWright-Patterson Medical CenterComment on above:Performed By: #### [id number] #### [facility] [address] [place] [id number]/100 WBC (Bld)2.8 %Normal0.0-8.0[facility] [facility] HospitalComment on above:Performed By: #### [id number] #### [facility] [address] [place] [address] 75122Xsqxcgtzagm distribution width (RBC) [Ratio]14.4 %High10.9-14.2 [facility] HospitalComment on above:Performed By: #### [id number] #### [facility] [address] [place] [address] 38650Dwkmyxfwwo (Bld) [Volume fraction]34.3 %Bdwyci02.0-46.0[facility] HospitalComment on above:Performed By: #### [id number] #### [facility] [address] [place] [address] 47374Jwwraxqnun (Bld) [Mass/Vol]11.7 g/dLLow12.0-16.0[facility] HospitalComment on above:Performed By: #### [id number] #### [facility] [address] [place] [address] 97939Jyalargvhns (Bld) [#/Vol]0.9 E9/LLow1.0-4.0[facility] HospitalComment on above:Performed By: #### [id number] #### [facility] [address] [place] [address] 16173Bdgtwrggkfd/100 WBC (Bld)15.4 %Kkxdxx05.0-50.0[facility] HospitalComment on above:Performed By: #### [id number] #### [facility] [address] [place] [address] 33623DSJ (RBC) [Entitic mass]30.8 agBodjhm80.0-34.0[facility] HospitalComment on above:Performed By: #### [id number] #### [facility] [address] [place] [address] 34696YPSG (RBC) [Mass/Vol]34.1 g/rJIiucuz16.4-36.0[facility] HospitalComment on above:Performed By: #### [id number] #### [facility] [address] [place] [address] 59778WCY (RBC) [Entitic vol]90.2 dPYsmqhv90.0-100.0[facility] HospitalComment on above:Performed By: #### [id number] #### [facility] [address] [place] [address] 13883Dwidaoiml (Bld) [#/Vol]0.4 E9/LNormal0.2-1.0[facility] HospitalComment on above:Performed By: #### [id number] #### [facility] [address] [place] [address] 18464Wunlsawstex (Bld) [#/Vol]4.3 E9/LNormal2.0-7.5FWright-Patterson Medical CenterComment on above:Performed By: #### [id number] #### [facility] [address] [place] [address] 49839Lkitqmoclui/100 WBC (Bld)73.6 %Fxqssw31.0-75.0[facility] HospitalComment on above:Performed By: #### [id number] #### [facility] [address] [place] [address] 57978Qymuizbb mean volume (Bld) [Entitic vol]7.4 fLNormal6.4-10.8 [facility] HospitalComment on above:Performed By: #### [id number] #### [facility] [address], [place] [address]Ezmspqmdk (Bld) [#/Vol]211.0 E9/KHqibna628.0-500.0[facility] HospitalComment on above:Performed By: #### [id number] #### [facility] [address], [place] [address]QHR (Bld) [#/Vol]3.8 E12/LLow4.3-5.9[facility] Comment on above:Performed By: #### [id number] #### [facility] [address], [place] [address]WPB corrected for nucl RBC Auto (Bld) [#/Vol]5.8 E9/LNormal 4.0-11.0[facility] HospitalComment on above:Performed By: #### [id number] #### [facility] [address], [place] [address]IAGVRXHWBUhoqxja By: SYSTEM SYSTEM on 89-67-8729Ppvudpf [Mass/Vol]3.8 g/dLNormal3.3 - 5.0 gm/dLRemisol ChemAlbumin/Globulin [Mass ratio] 1.8 {ratio}Normal1.1 - 2.2Remisol ChemALP [Catalytic activity/Vol]44 [iU]/d Jhgjzw57 - 98 Int._Unit/LRemisol ChemALT No additional P-5'-P [Catalytic activity/Vol]11 [iU]/dNormal6 - 46 Int._Unit/LRemisol ChemAnion gap [Moles/Vol] 10 mmol/LNormal6 - 16 mEq/LRemisol ChemAST [Catalytic activity/Vol]22 [iU]/d Normal5 - 43 Int._Unit/LRemisol ChemBilirubin [Mass/Vol]0.5 mg/dLNormal0.0 - 1.1 mg/dLRemisol ChemBilirubin.direct [Mass/Vol]0.1 mg/dLNormal0.0 - 0.4 mg/dL Remisol ChemBilirubin.indirect [Mass or moles/Vol]0.4 mg/dLNormal0.1 - 0.9 mg/dL Remisol ChemCalcium [Mass/Vol]8.9 mg/dLNormal8.9 - 11.1 mg/dLRemisol Chem Chloride [Moles/Vol]105 mmol/ODdwrsz001 - 111 mmol/LRemisol ChemCO2 [Moles/Vol] 29 mmol/LMgwqju41 - 31 mmol/LRemisol ChemCreatinine [Mass/Vol]0.8 mg/dLNormal0.5 - 1.3 mg/dLRemisol VzouzJVP48 mL/min/1.73 q6Sfynzw>=59mL/min/1.73 l2Dvqfmma ChemEthanol Lvlmg/dLNormal<=11mg/dLRemisol ChemGlobulin (S) [Mass/Vol]2.1 g/dL Normal1.4 - 4.0 gm/dLRemisol ChemGlucose [Mass/Vol]94 mg/aIHuotqk92 - 199 mg/dL Remisol ChemLactic Acid Lvl0.6 mmol/LNormal0.5 - 2.2 mmol/LRemisol ChemLipase [Catalytic activity/Vol]14 U/IZjxcrt47 - 58 unit/LRemisol ChemPotassium [Moles/Vol]3.9 mmol/LNormal3.5 - 5.3 mmol/LRemisol ChemProtein [Mass/Vol]5.9 g/dLLow6.0 - 7.8 gm/dLRemisol ChemSodium [Moles/Vol]140 mmol/HWuoihe982 - 145 mmol/LRemisol ChemTroponin7.60 pg/mLLow10.10 - 27.10 pg/mLRemisol ChemComment on above:Interpretive Data: The 95% CI (Confidence Interval) PPV (Positive Predictive Value) for myocardial infarction in females is 38 pg/mL, in males 51 pg/mL. The results should be used in conjunction withclinical conditions of myocardial infarction. (Access High Sensitivity Troponin I Instructions For Use, Raegan [facility], October 2017)Urea nitrogen [Mass/Vol]21 mg/dLNormal5 - 21 mg/dLRemisol ChemUrea nitrogen/Creatinine [Mass ratio]26 mg/yrMrfz77 - 20Remisol ChemCOAGULATION Ordered By: Racquel Case on 62-27-6481eLNM Coag (PPP) [Time]31.7 gAnqtns17.1 - 36.5 second(s)[facility] Auto CoagComment on above:Interpretive Data: Parameter 15 days - 4 weeks 1 - [...] the same coagulation reagent and instrumentation as [facility]. Currently there are no coagulation studies available worldwide for children to 14 days, andno normal ranges. Heparin therapeutic range (represented by Anti-Factor Xa activity of 0.2 - 0.4 U/mL) corresponds to PTT of 56.6 - 109.0 sec.INR Coag (PPP) [Relative time]0.96 {INR}Invalid Interpretation CodePARKSIDE PSYCH[facility] [place] Auto CoagComment on above:Interpretive Data: INR results are specifically intended to assess patients stabilized on long-term Anticoagulation therapy suggested INR s Less Intensive Anticoagulation 2.0 3.0 Conventional Range 3.0 4.5PT Coag (PPP) [Time]10.8 sNormal9.4 - 12.5 second(s) [facility] Auto CoagComment on above:Interpretive Data: 15 days - 4 weeks 1 - [...] the same coagulation reagent and instrumentation as [facility]. Currently there are no coagulation studies available worldwide for children to 14 days, andno normal ranges.CT Abdomen/Pelvis w/ Contraston 04-75-2378QB Abdomen/Pelvis w/ ContrastExam Date/Time: 07/29/2023 12:11 EDT Reason for Exam: [...] Contrast: Isovue 300 Contrast amount in ml's: 130NormalFisher Sinai Hospital Of BaltimoreCT Chest w/ Contraston 82-29-9617AM Chest w/ ContrastExam Date/Time: 07/29/2023 12:11 EDT Reason for Exam: [...] Contrast: Isovue 300 Contrast amount in ml's: 130NormalFisher Sinai Hospital Of BaltimoreCT Head WO contrast Ordered By: Marky Rg on 37-31-5319MZ QMT6826.7 (mGy.cm)[facility] Work Phone: ct SeriesHeadMetroHealth Work Phone: cTDI VOL67.5 (mGy)[facility] Work Phone: PHANTOM TYPEIEC Head Dosimetry PhantomMetroHealth Work Phone: [facility] Work Phone: ct Head WO contraston 55-56-9145GNEQSMBJOVB: CT HEAD W/O CONTRAST 07/29/2023 10:12 PM [...] of low-grade diffuse axonal injury. MACRO: None Marky Irizarry MD - 07/29/2023 EXAMINATION: CT HEAD W/O [...] of low-grade diffuse axonal injury. MACRO: None [facility]HealthRadiology Study observation (narrative)[facility]roHealthEXAMINATION: CT HEAD W/O CONTRAST 07/29/2023 04:34 PM [...] 6 mm or less. 3 mm of dmgl-lr-zpbhf midline shift. Partial effacement of the left [...] left frontal lobe. 4. 3 mm of cofm-jj-jssvr midline shift. MACRO: None Artem Auguste DO - 07/29/2023 EXAMINATION: CT HEAD W/O [...] 6 mm or less. 3 mm of fzej-rv-zdgft midline shift. Partial effacement of the left [...] left frontal lobe. 4. 3 mm of mokd-bt-byevb midline shift. MACRO: None [facility]HealthRadiology Study observation (narrative)[facility]HealthCT Head WO contrast Ordered By: Artem Amanda on 16-45-0890BT ATZ9608.85 (mGycm)[facility] Work Phone: cT SeriesHead,Head,HeadMetroHealth Work Phone: cTDI VOL71.99 (mGy)[facility] Work Phone: PHANTOM [facility] Head Dosimetry PhantomMet[facility] Work Phone: [facility] Work Phone: cT Head or Brain w/o Contraston 38-58-8802XL Head or Brain w/o ContrastNoMarietta Osteopathic Clinic Maxillofacial w/o Contrast on 42-95-2562KL Maxillofacial w/o ContrastExam Date/Time: 07/29/2023 12:08 EDT Reason for Exam: left facial injury;Other (please specify) Report IMPRESSION: MINIMAL LEFT ORBITAL/PERIORBITAL SOFT TISSUE SWELLING. NASAL SEPTAL DEVIATION TO LEFT. CT MAXILLOFACIAL WITHOUT INTRAVENOUS CONTRAST MEDIUM. History: F[place] [employer]. Technical factors: CT maxillofacial imaging was performed [...] Shahid Bear MD Transcribed by: BRENDA Technologist: OracioCarolinas Continuecare Hospital At Universityabigail [facility] Hospital Of BaltimoreCT Spine Cervical w/o Contraston 71-21-0164LC Spine Cervical w/o ContrastExam Date/Time: 07/29/2023 12:08 EDT Reason for Exam: NECK TRAUMA, DANGEROUS INJURY MECHANISM;Other (please specify) Report IMPRESSION: NO FRACTURE. NO MALALIGNMENT. MULTILEVEL DEGENERATIVE CHANGE CERVICAL SPINE. BILATERAL CAROTID CALCIFICATION. IF CLINICAL CONCERN WARRANTS, CAROTID SONOGRAPHY MAY BE OBTAINED FOR FURTHER EVALUATION. CT CERVICAL SPINE WITHOUT INTRAVENOUS CONTRAST MEDIUM. HISTORY: Fell at [employer]. Head pain. Left eyebrow laceration. NECK TRAUMA, [...] Shahid Bear MD Transcribed by: BRENDA Technologist: [facility] Medical CenterConsent for Treatmenton 12-66-7050Rbthudi for Treatment [id number]#1.00TIFFNoTriHealth Clinical Summaryon 81-00-9662DS Clinical Summary [place] [id number] ED Clinical Summary Person Information Name: CARLY MARCELINO [facility] Age: 83 Years : 1940 Sex: Female Language: Haitian PCP: HARDEEP MCKENZIE DO Marital Status: Phone: [phone] Visit Id: Visit Reason: Facial laceration; Closed head injury without LOC; Knee pain- swelling; Trauma - major; Fall; fall Speciality: Acuity: [...] 07/29/2023 12:53:07 07/29/2023 12:53:07 07/29/2023 12:53:07 ADDRESS: [address] [place] [phone] PHYS DOC NOTES: MEDICAL INFORMATION: Prescriptions Given: [...] Facial contusion; Hypertensive emergency; Traumatic subdural hematoma (SDH)[facility] CenterED Noteon 62-30-6072OC Note [id number]#1.00TIFFNormalMercy Health Clermont Hospital CenterED Note-Physicianon 32-11-6986LF Note-PhysicianBasic Information Time Seen: Stacia Dwyer DO 07/29/2023 11:10 Chief Complaint was walking into [employer] and tripped on curb causing her to fall. has ight knee pain and head pain History of Present Illness 83-year-old female to the emergency department with chief complaint of accidental fall. Patient waswalking into [place] when she tripped on a curb and [...] is a hematoma about the medial right knee.Otherwise all major joints with normal ROM. No [...] intervene emergently and I personally spent this criticalcare time directly and personally managing the patient. [...] some shift. Call was placed to the on- call trauma surgeon Dr. Cisneros. Plan for transfer to [facility] via helicopter EMS. Head of bed at 30 degrees. Goal SBP less than 160 and this chronically hypertensive patient. She did require a 10 mg IV hydralazine push. No blood thinners to reverse. X-ray imaging negative. CT cervical spine without acute findings. Patient was accepted the service of Dr. Cotter at [facility] for further trauma andneurosurgical evaluation. Patient and her daughter updated on this plan. Assessment/Plan Altered mental status (R41.82: Altered mental status, unspecified) Contusion of hip (S70.00XA: Contusion of unspecified hip, initial encounter) Contusion of knee (S80.00XA: Contusion of unspecified knee, initial enc (more content not included)...[facility] JacksonComment on above:Result Comment: Electronically Signed By: Stacia Dwyer DO\.chepe\Date and Time Signed: 07/29/23 12:36 EDTED Patient Education Noteon 89-21-8170PG Patient Education NoteNormCrystal Clinic Orthopedic Center Patient Summaryon 66-64-1572FV Patient Summary [place] [id number] Patient Discharge Instructions Person Information Name: CARLY MARCELINO Age: 83 Years Arrival Date: 07/29/2023 11:00:09 Discharge Diagnosis: Altered mental status; Contusion of hip; Contusion of knee; Facial contusion; Hypertensive emergency; Traumatic subdural hematoma (SDH) Primary Care Physician: HARDEEP CMKENZIE DO Provider Information Primary Provider: Stacia Dwyer DO Advanced Ecotherapist:None The exam and treatment you received in the Emergency Department were for an urgent problem and are not intended as complete care. It is important that you follow up with a doctor, nurse practitioner,or physician?s workforce development assistant for ongoing care. If your symptoms [...] opioids can be used to help relieve wbslsqej-ep-aelbkm pain and are often prescribed following a [...] and have fewer risks and side effects. Optionsmay include: ? Pain relievers such as acetaminophen, [...] unused prescription opioids: Find your community drug take- back program or yourpharmacy mail-back program, or flush them down the toilet, following guidance from the Food and Drug Administration (www.fda.gov/Drugs/ResourcesForYou). ? Visit www.cdc.gov/drugoverdose to learn about the risks of opioids abuse and overdose. ? If you believe you may be struggling with addiction, tell your health neonatal intensive care nurse and ask for guidance or call SAMHSA?S National Helpline at 6-061-130-HELP. v Source: US Department of Health and Human Services/Center for Disease Con (more content not included)...NormalCleveland Clinic Traumaon 26-07-4094HJ [id number]#1.00TIFFNormal [facility] HospitalEMS Documentationon 97-13-7393SBD DocumentationPlease click on link to see reportNormalAvita Health System Bu[facility] HospitalComment on above: Result Comment: Missing Attachment - attachment exceeds size limitation [email or web address].pdf Can be viewed in source systemETHANOL, SERUMon 07-29-2023 Ethanol [Mass/Vol]mg/dLNone Detected mg/dLMetroHealthEthanolon 98-05-1789Gflgfow Lvl<10Normal<=11[facility] HospitalComment on above:Performed By: #### [id number] #### [facility] [address], [place] [address]ZQWLFDFSEZTzlttdf By: SYSTEM SYSTEM on 02-82-2228Qfgtruryf/100 WBC (Bld)0.7 %Normal0.0 - 2.0 %Remisol HemeBasophils/Leukocytes Auto (Bld) [Pure # fraction]0.0 E9/LNormal0.0 - 0.2 E9/LRemisol HemeEosinophils (Bld) [#/Vol]0.2 E9/LNormal0.0 - 0.5 E9/LRemisol HemeEosinophils/100 WBC (Bld)2.8 %Normal0.0 - 8.0 %Remisol HemeErythrocyte distribution width (RBC) [Ratio]14.4 %High10.9 - 14.2 %Remisol HemeHematocrit (Bld) [Volume fraction]34.3 %Gbiuob38.0 - 46.0 % Remisol HemeHemoglobin (Bld) [Mass/Vol]11.7 g/dLLow12.0 - 16.0 gm/dLRemisol Heme Lymphocytes (Bld) [#/Vol]0.9 E9/LLow1.0 - 4.0 E9/LRemisol HemeLymphocytes/100 WBC (Bld)15.4 %Qaknza87.0 - 50.0 %Remisol HemeMCH (RBC) [Entitic mass]30.8 pg Gjbzwo59.0 - 34.0 pgRemisol HemeMCHC (RBC) [Mass/Vol]34.1 g/cSDsfize90.4 - 36.0 gm/dLRemisol HemeMCV (RBC) [Entitic vol]90.2 xAHgqhxr17.0 - 100.0 fLRemisol Heme Monocytes (Bld) [#/Vol]0.4 E9/LNormal0.2 - 1.0 E9/LRemisol HemeMonocytes/100 WBC (Bld)7.5 %Normal4.0 - 14.0 %Remisol HemeNeutrophils (Bld) [#/Vol]4.3 E9/LNormal 2.0 - 7.5 E9/LRemisol HemeNeutrophils/100 WBC (Bld)73.6 %Dgqpws75.0 - 75.0 % Remisol HemePlatelet mean volume (Bld) [Entitic vol]7.4 fLNormal6.4 - 10.8 fL Remisol HemePlatelets (Bld) [#/Vol]211.0 E9/KAulcgh116.0 - 500.0 E9/LRemisol HemeRBC (Bld) [#/Vol]3.8 E12/LLow4.3 - 5.9 E12/LRemisol HemeWBC corrected for nucl RBC Auto (Bld) [#/Vol]5.8 E9/LNormal4.0 - 11.0 E9/LRemisol HemeHIV 1 and 2 Ab and HIV 1 p24 Ag panel IAon 50-72-2523XDI 1+2 Ab+HIV1 p24 Ag IA Ql Itk-WgyrbgzhUax-GfxwyvngTbzfeSlqgodEgwasai on above:No laboratory evidence for HIV Infection. Negative result does not rule out acute HIV infection. Ifacute HIV infection is suspected, recommend ordering an HIV-1 RNA quanitification test.Interpretation and review of laboratory resultsNormalMetroHealth HIV Information: [place] Rev. code 3701.243(E): This information has been disclosed to you from confidential records protected from disclosure by state law. You shall make no further disclosure of this information without the specific, written, and informed release of the individual to whom it pertains, or as otherwise permitted by state law. A g eneral authorization for the release of medical or other information is not sufficient for the purpose of the release of HIV test results or diagnoses. MetroHealthMetroHealthHep Func Panelon 24-23-2099Wblsyum [Mass/Vol]3.8 g/dL Normal3.3-5.0[facility] HospitalComment on above:Performed By: #### [id number] #### [facility] [address], [place] [address]Zptepzt/Globulin (S) [Mass conc ratio]1.3Jkexwu0.1-2.2FWright-Patterson Medical CenterComment on above:Performed By: #### [id number] #### [facility] [address], [place] [address]YCV [Catalytic activity/Vol]44 Int._Unit/OTbjukb18-62YzwyxuAvita Health System Bucyrus HospitalComment on above:Performed By: #### [id number] #### [facility] [address], [place] [address]WOR No additional P-5'-P [Catalytic activity/Vol]11 Int._Unit/L Normal6-46[facility] HospitalComment on above:Performed By: #### [id number] #### [facility] [address], [place] [address]QSP [Catalytic activity/Vol]22 Int._Unit/LNormal5-43[facility] HospitalComment on above:Performed By: #### [id number] #### [facility] [address], [place] [address]Jujdjbtvd [Mass/Vol]0.5 mg/dLNormal0.0-1.1FWright-Patterson Medical CenterComment on above:Performed By: #### [id number] #### [facility] [address], [place] [address]Eplukhaly.direct [Mass/Vol]0.1 mg/dLNormal0.0-0.4FWright-Patterson Medical CenterComment on above:Performed By: #### [id number] #### [facility] [address], [place] [address]Qmetdkwps.indirect [Mass or moles/Vol]0.4 mg/dLNormal0.1-0.9 [facility] HospitalComment on above:Performed By: #### [id number] #### [facility] [address], [place] [address]Nshjqxmr (S) [Mass/Vol]2.1 g/dLNormal1.4-4.0[facility] HospitalComment on above:Performed By: #### [id number] #### [facility] [address], [place] [address]Bqrkhwo [Mass/Vol]5.9 g/dLLow6.0-7.8[facility] Comment on above:Performed By: #### [id number] #### [facility] [address], [place] [address]SRGERW ACIDOrdered By: Stefanie Chapman on 40-57-7427Ukkmtqfsmwgfnc and review of laboratory resultsNormalMetroHealthLactate [Moles/Vol]1.3 mmol/L 0.5 - 1.6 mmol/LMetroHealthMetroHealthLaboratory - Blood bankon 72-53-8806WZQ and Rh group Nom (Bld)Blood group A Rh(D) positiveMetroHealthLactic Acidon 71-92-7855Vzvllv Acid Lvl0.6 mmol/LNormal0.5-2.2FWright-Patterson Medical Center Comment on above:Performed By: #### [id number] #### [facility] [address], [place] [address]Vpatto Levelon 03-12-9024Nvbmpm [Catalytic activity/Vol]14 U/L Pnydcb94-57GuynsrAvita Health System Bucyrus HospitalComment on above:Performed By: #### [id number] #### [facility] [address], [place] [address]Bygvgkf Recordon 83-57-8746Glcdbhs Record [id number] Health System Bucyrus HospitalNo Panel Informationon 92-98-5621Mfpnjvyfljrdad and review of laboratory resultsNormalMetroHealthMetroHealthInterpretation and review of laboratory resultsNormalMetroHealthMetroHealthInterpretation and review of laboratory resultsNormalMetroHealthMetroHealthPARTIAL THROMBOPLASTIN TIMEon 76-45-4787xADU Coag (Bld) [Time]29 sMetroHealthaPTT Coag (Bld) [Time]29 sMetroHealthPROTHROMBIN TIME AND INRon 98-23-9617SNJ Coag (PPP) [Relative time]0.97 {INR}0.90 - 1.10 MetroHealthPT Coag (PPP) [Time]10.9 sMetroHealthINR Coag (PPP) [Relative time] 0.98 {INR}0.90 - 1.10MetroHealthPT Coag (PPP) [Time]11.0 sMetroHealthPT & PTTon 49-29-6574eLMQ Coag (PPP) [Time]31.7 second(s)Qwdzmp21.1-36.5Fisher [facility]inai Hospital Of BaltimoreComment on above:Result Comment: Parameter 15 days - 4 weeks 1 - [...] the same coagulation reagent and instrumentation as [facility]. Currently there are no coagulation studies available worldwide for children to 14 days, andno normal ranges. Heparin therapeutic range (represented by Anti-Factor Xa activity of 0.2 - 0.4 U/mL) corresponds to PTT of 56.6 - 109.0 sec.Performed By: #### [id number] #### [facility] [address], [place] [address]ZIF Coag (PPP) [Relative time]0.96 {INR}Invalid Interpretation CodeFisher Sinai Hospital Of BaltimoreComment on above:Result Comment: INR results are specifically intended to assess patients stabilized on long-term Anticoagulation therapy suggested INR?s ?Less Intensive Anticoagulation? 2.0 ? 3.0 Conventional Range 3.0 ? 4.5Performed By: #### [id number] #### [facility] [address], [place] [address]UT Coag (PPP) [Time]10.8 second(s)Normal9.4-12.5Fisher Sinai Hospital Of BaltimoreComment on above:Result Comment: 15 days - 4 weeks 1 - [...] the same coagulation reagent and instrumentation as [facility]. Currently there are no coagulation studies available worldwide for children to 14 days, andno normal ranges.Performed By: #### [id number] #### [facility] [address], [place] [address]Dws-Zlekvgz Noteon 64-79-9341Hxj-Arrival NoteNormLouis Stokes Cleveland VA Medical CenterTYPE AND SCREENon 62-42-0217DCG and Rh group Nom (Bld)Blood group A Rh(D) positiveMetroHealthABO and Rh group Nom (Bld)No Previous Results MetroHealthBlood group antibody screen QlNegativeMetroHealthMetroHealthTransfer Documentson 35-93-7044Mdgxofhn Documents [id number] HospitalTroponinon 74-95-5677Vwwkueyx0.60 pg/mLLow10.10-27.10Fisher [facility] Hospital Of BaltimoreComment on above:Result Comment: The 95% CI (Confidence Interval) PPV (Positive Predictive Value) for myocardial infarction in females is 38 pg/mL, in males 51 pg/mL. The results should be used in conjunction with clinical conditions of myocardial infarction. (Access High Sensitivity Troponin I Instructions For Use, Raegan [facility], October 2017)Performed By: #### [id number] #### [facility] [address] [place], [place] [address]GT Hip 2-3 Views Left + Pelvison 67-42-2474PF Hip 2-3 Views Left + PelvisExam Date/Time: 07/29/2023 12:24 EDT Reason for Exam: Trauma;Other (please specify) Report IMPRESSION: NO FRACTURE. CLINICAL HISTORY: Trauma COMPARISON: NONE. FINDINGS: Mild narrowing hip joints. No fracture, dislocation, bone lesion. Degenerative change lower lumbar spine. Ordering Provider: Stacia Dwyer FINAL REPORT Dictated: 07/29/2023 12:40 pm Shahid Bear MD Signed (Electronic Signature): 07/29/2023 12:40 pm Signed by: Shahid Bear MD Transcribed by: DP Technologist: ORG Technical Comments Radiation Dose: Ka,r in mGy = . DAP = .NormalFisher Sinai Hospital Of BaltimoreXR Knee Complete 4+ Views Righton 63-41-8185TF Knee Complete 4+ Views RightExam Date/Time: 07/29/2023 12:24 EDT Reason for Exam: [...] Signed by: Shahid Bear MD Transcribed by: DP Technologist: ORG Technical Comments Radiation Dose: Ka,r in mGy = . DAP = .NormalAvita Health System Bucyrus HospitaleGFRon 48-44-4235lWXR57 mL/min/1.73 m2 Normal>=59[facility] Bucyrus HospitalComment on above:Order Comment: Order added by Discern Expert.Performed By: #### [id number] #### [facility] [address] [place], [place] [address]LXYgt 94-50-4299Chbil gap [Moles/Vol]15 mmol/LNormal6-16[facility] HospitalComment on above:Performed By: #### [id number], [id number] ####[address] [place] [address] Calcium [Mass/Vol]9.8 mg/dLNormal8.9-11.1FWright-Patterson Medical CenterComment on above:Performed By: #### [id number], 0524931 ####[address] [address]Rgifsuxv [Moles/Vol]103 mmol/LNormal 101-111[facility] HospitalComment on above:Performed By: #### [id number], 9001183 ####[address] [address]QO3 [Moles/Vol]26 mmol/VCebydh47-76YtjgfdAvita Health System Bucyrus HospitalComment on above:Performed By: #### 25458961, 4107359 ####[address] [address]Odjoujoxnz [Mass/Vol]0.9 mg/dLNormal 0.5-1.3FWright-Patterson Medical CenterComment on above:Performed By: #### [id number], 0722154 ####[address] [place], [place] [address]Oiohmdx [Mass/Vol]90 mg/hDCklwbp19-132ZnrpjxAvita Health System Bucyrus HospitalComment on above:Performed By: #### 06468780, 9141146 ####[address] [place], [place] [address]Qaelvrbnd [Moles/Vol]4.6 mmol/LNormal 3.5-5.3FWright-Patterson Medical CenterComment on above:Performed By: #### 80357099, 0582346 ####[facility] [address] [place], [place] [address]Fulele [Moles/Vol]139 mmol/VWpvtxl779-829DjoxfvAvita Health System Bucyrus HospitalComment on above:Performed By: #### 30331404, 1905595 ####[facility] [address] [place], [place] [address]Hchr nitrogen [Mass/Vol]23 mg/dLHigh 5-21[facility] HospitalComment on above:Performed By: #### [id number], 8630754 ####[facility] [address] [place], [place] [address]Glem nitrogen/Creatinine [Mass ratio]26 No YzahwKnta58-39FeirgsAvita Health System Bucyrus HospitalComment on above:Performed By: #### [id number], 8885723 ####[facility] [address] [place], [place] [address]IVOBHQMXBEnehdxz By: SYSTEM SYSTEM on 46-64-1140Fgplb gap [Moles/Vol]15 mmol/LNormal6 - 16 mEq/L Remisol ChemCalcium [Mass/Vol]9.8 mg/dLNormal8.9 - 11.1 mg/dLRemisol Chem Chloride [Moles/Vol]103 mmol/DZdaqrg082 - 111 mmol/LRemisol ChemCO2 [Moles/Vol] 26 mmol/UUtfqup89 - 31 mmol/LRemisol ChemCreatinine [Mass/Vol]0.9 mg/dLNormal0.5 - 1.3 mg/dLRemisol TxlddYAS85 mL/min/1.73 s8Tqlopv>=59mL/min/1.73 s6Axecfmn ChemGlucose [Mass/Vol]90 mg/hRVujgqv06 - 199 mg/dLRemisol ChemPotassium [Moles/Vol]4.6 mmol/LNormal3.5 - 5.3 mmol/LRemisol ChemSodium [Moles/Vol]139 mmol/HYlkoyd286 - 145 mmol/LRemisol ChemUrea nitrogen [Mass/Vol]23 mg/dLHigh5 - 21 mg/dLRemisol ChemUrea nitrogen/Creatinine [Mass ratio]26 mg/njAjim63 - 20 Remisol ChemConsent for Treatmenton 61-82-2311Rpbpazx for Treatment [id number]#1.00TIFFHolzer Medical Center – JacksoneGFRon 46-23-0818nATE08 mL/min/1.73 i2Yfxnvf>=59[facility] HospitalComment on above:Order Comment: Order added by Discern Expert.Performed By: #### [id number], [id number] ####[facility] [address] [place], [place] [address]Tjhearqir Instructionson 50-13-1436Dnqabwlcn [id number]#1.00TIFFSt. Vincent Hospital CenterED Clinical Summaryon 47-15-5591DO Clinical SummaryNoFlower Hospital CenterED Note-Physicianon 47-78-0085MX Note-PhysicianHolzer Medical Center – JacksonComment on above:Result Comment: Electronically Signed By: Ashley Mera, Reshma Méndez.br\Date and Time Signed: 07/13/2400:21 EDTED Patient Education Noteon 59-70-4272HP Patient Education NoteNoFlower Hospital CenterED Patient Summaryon 97-49-8623VV Patient SummaryNoBerger HospitalBMPon 67-95-6510Awiic gap [Moles/Vol]9 mmol/LNormal6-16[facility] HospitalComment on above:Performed By: #### [id number], 9073977, 0736392, 5813567 ####[facility] [address]tszpkj[address] [place], [place] [address]Wymyaew [Mass/Vol]9.3 mg/dLNormal8.9-11.1[facility] BaltimoreComment on above:Performed By: #### 64071987, 5907308, 2622480, 5992163 ####[address] [place], [place] [address]Mhwktzrj [Moles/Vol]100 mmol/HDia767-713NwqpakAvita Health System Bucyrus HospitalComment on above:Performed By: #### 07020088, 9920028, 2688393, 7333643 ####[address] [address]KM0 [Moles/Vol]30 mmol/MSoqhbz86-83RdevfwAvita Health System Bucyrus HospitalComment on above:Performed By: #### 39818456, 2485417, 0225236, 4817651 ####[address] [address]Hlmpmkcapr [Mass/Vol]0.8 mg/dLNormal 0.5-1.3FWright-Patterson Medical CenterComment on above:Performed By: #### 99285565, 3817105, 6050584, 8542088 ####[address] [address]Tkpemto [Mass/Vol]98 mg/hQDklwpd41-513HknhqlAvita Health System Bucyrus HospitalComment on above:Performed By: #### 27951041, 2228818, 0972025, 3648537 ####[address] [address] Potassium [Moles/Vol]4.8 mmol/LNormal3.5-5.3FWright-Patterson Medical CenterComment on above:Performed By: #### 54024391, 1950222, 0422801, 3701257 ####[address] [place], [place] [address]Nkbyjt [Moles/Vol]134 mmol/BNup750-182VjcxurAvita Health System Bucyrus HospitalComment on above:Performed By: #### 59022854, 3435539, 7328699, 3873960 ####[address] [address]Kqxj nitrogen [Mass/Vol]23 mg/dLHigh 5-21[facility] HospitalComment on above:Performed By: #### 81638637, 6965713, 4663448, 1557291 ####[address] [address]Msjg nitrogen/Creatinine [Mass ratio]29 No YtwmvClfq35-43 [facility] HospitalComment on above:Performed By: #### 64716340, 5757786, 6437282, 2475511 ####[address] [address]LTP w/ Auto Diffon 25-08-8367Aaoqdjprp/100 WBC (Bld)0.9 % Normal0.0-2.0[facility] HospitalComment on above:Performed By: #### 86090221, 7531366, 4747730, 1698339 ####[address] [address]Jieinxekq/Leukocytes Auto (Bld) [Pure # fraction]0.1 E9/LNormal0.0-0.2FWright-Patterson Medical CenterComment on above: Performed By: #### 79552099, 4833214, 2752629, 5045978 ####[address] [address]Llgxjltzrth (Bld) [#/Vol]0.3 E9/LNormal0.0-0.5FWright-Patterson Medical CenterComment on above:Performed By: #### 38055341, 5867951, 5342084, 5911576 ####[address] [address]Qjzgdiiluzj/100 WBC (Bld)4.3 %Normal 0.0-8.0[facility] HospitalComment on above:Performed By: #### 34530216, 8282205, 7444098, 6481640 ####[address] [address]Voevoirnmoq distribution width (RBC) [Ratio]14.3 %High 10.9-14.2FWright-Patterson Medical CenterComment on above:Performed By: #### 45362216, 6961565, 5961038, 9144867 ####[address] [address]Zbqxduddba (Bld) [Volume fraction] 33.0 %Low34.0-46.0[facility] HospitalComment on above:Performed By: #### 82509521, 0427596, 8164377, 9126137 ####[address] [address]Tiwknrxkmq (Bld) [Mass/Vol]10.9 g/dL Low12.0-16.0[facility] HospitalComment on above:Performed By: #### 95722893, 6325507, 6483782, 6128466 ####[address] [address]Zgvzlkulogk (Bld) [#/Vol]1.2 E9/L Normal1.0-4.0[facility] HospitalComment on above:Performed By: #### 77884235, 9185024, 3700448, 1575465 ####[address] [address]Pgxzfzitutn/100 WBC (Bld)18.7 %Normal 14.0-50.0[facility] HospitalComment on above:Performed By: #### 50013122, 7662034, 1187283, 7680554 ####[address] [address]IXB (RBC) [Entitic mass]29.8 pgNormal 27.0-34.0[facility] HospitalComment on above:Performed By: #### 31378525, 0356949, 7079782, 9646478 ####[address] [address]FFVP (RBC) [Mass/Vol]33.1 g/dLNormal 31.4-36.0[facility] HospitalComment on above:Performed By: #### 70854990, 6006579, 5668117, 2531108 ####[address] [address]HGL (RBC) [Entitic vol]90.2 fLNormal 80.0-100.0[facility] HospitalComment on above:Performed By: #### 73570153, 8932338, 7972774, 6096156 ####[address] [address]Vdouhvydt (Bld) [#/Vol]0.6 E9/LNormal 0.2-1.0[facility] HospitalComment on above:Performed By: #### 72751186, 0185726, 8216858, 6837636 ####[address] [address]Krapgzcbxmx (Bld) [#/Vol]4.4 E9/LNormal2.0-7.5FWright-Patterson Medical CenterComment on above:Performed By: #### 89291059, 3819650, 0047592, 8432660 ####[address] [address]Zpjaitmwauk/100 WBC (Bld)66.6 %Aaawuq10.0-75.0[facility] Comment on above:Performed By: #### 35120999, 1876346, 8700428, 9436063 ####[address] [address] Mrrzmswj640.0 E9/WExqsim100.0-500.0[facility] HospitalComment on above: Performed By: #### 69918547, 4934557, 5481852, 9816809 ####[address] [address]Qtcexhgj mean volume (Bld) [Entitic vol]6.4 fLNormal6.4-10.8[facility] HospitalComment on above: Performed By: #### 30323444, 7367753, 2104611, 3350985 ####[address], [place] [address]XDK (Bld) [#/Vol]3.7 E12/LLow 4.3-5.9[facility] HospitalComment on above:Performed By: #### 79490419, 8139037, 0705254, 0645875 ####[facility] [address] [place], [place] [address]HVL corrected for nucl RBC Auto (Bld) [#/Vol]6.6 E9/LNormal 4.0-11.0[facility] HospitalComment on above:Performed By: #### 58788015, 6089718, 1141726, 5810995 ####[facility] [address] [place], [place] [address]CMSGAWOVGHpbijxx By: SYSTEM SYSTEM on 07-13-2023 Anion gap [Moles/Vol]9 mmol/LNormal6 - 16 mEq/LRemisol ChemCalcium [Mass/Vol]9.3 mg/dLNormal8.9 - 11.1 mg/dLRemisol ChemChloride [Moles/Vol]100 mmol/AZdo565 - 111 mmol/LRemisol ChemCO2 [Moles/Vol]30 mmol/GRnioby90 - 31 mmol/LRemisol Chem Creatinine [Mass/Vol]0.8 mg/dLNormal0.5 - 1.3 mg/dLRemisol NfwmcSUC39 mL/min/1.73 k3Ezbufu>=59mL/min/1.73 o9Mkvsynx ChemGlucose [Mass/Vol]98 mg/dL Gihsuq08 - 199 mg/dLRemisol ChemPotassium [Moles/Vol]4.8 mmol/LNormal3.5 - 5.3 mmol/LRemisol ChemSodium [Moles/Vol]134 mmol/SLis204 - 145 mmol/LRemisol Chem Troponin6.30 pg/mLLow10.10 - 27.10 pg/mLRemisol ChemComment on above: Interpretive Data: The 95% CI (Confidence Interval) PPV (Positive Predictive Value) for myocardial infarction in females is 38 pg/mL, in males 51 pg/mL. The results should be used in conjunction withclinical conditions of myocardial infarction. (Access High Sensitivity Troponin I Instructions For Use, Raegan Nolan, October 2017)Urea nitrogen [Mass/Vol]23 mg/dLHigh5 - 21 mg/dLRemisol ChemUrea nitrogen/Creatinine [Mass ratio]29 mg/dbDtys73 - 20Remisol ChemCHEMISTRYOrdered By: Lab ROPUser on 11-04-5402Dljiroe [Mass/Vol]90 mg/tTOkmked98 - 99 mg/dLPARKSIDE PSY[facility] POC SubsectionComment on above:Result Comment: Notified RN/JUDEOC Device SN [id number] 1Invalid Interpretation CodePARKSIDE PSYCHIATRIC HOSPITAL [facility] [place] POC SubsectionPOC User [id number] 1Invalid Interpretation CodePARKSIDE PSYCHIATRIC [facility] [place] POC SubsectionPOC UsernameSCHUCK, PINA Invalid Interpretation CodePARKSIDE PSYCHIATR[facility] [place] POC SubsectionCapillary Glucose POCon 07-13-2023 Glucose [Mass/Vol]90 mg/zSGfzzjj31-18MqjlzqAvita Health System Bucyrus HospitalComment on above:Result Comment: Notified RN/MDPerformed By: #### [id number] ####[facility] [address] [place], [place] [address]Hhnppon for Treatmenton 10-97-5887Joowsuy for Treatment [id number]#1.00TIFFNoBerger HospitalHEMATOLOGYOrdered By: SYSTEM SYSTEM on 95-50-3257Bjmrszglb/100 WBC (Bld) 0.9 %Normal0.0 - 2.0 %Remisol HemeBasophils/Leukocytes Auto (Bld) [Pure # fraction]0.1 E9/LNormal0.0 - 0.2 E9/LRemisol HemeEosinophils (Bld) [#/Vol]0.3 E9/LNormal0.0 - 0.5 E9/LRemisol HemeEosinophils/100 WBC (Bld)4.3 %Normal0.0 - 8.0 %Remisol HemeErythrocyte distribution width (RBC) [Ratio]14.3 %High10.9 - 14.2 %Remisol HemeHematocrit (Bld) [Volume fraction]33.0 %Low34.0 - 46.0 % Remisol HemeHemoglobin (Bld) [Mass/Vol]10.9 g/dLLow12.0 - 16.0 gm/dLRemisol Heme Lymphocytes (Bld) [#/Vol]1.2 E9/LNormal1.0 - 4.0 E9/LRemisol HemeLymphocytes/100 WBC (Bld)18.7 %Lmpqza56.0 - 50.0 %Remisol HemeMCH (RBC) [Entitic mass]29.8 pg Wppnxo75.0 - 34.0 pgRemisol HemeMCHC (RBC) [Mass/Vol]33.1 g/lKUfkmeo28.4 - 36.0 gm/dLRemisol HemeMCV (RBC) [Entitic vol]90.2 gVMiamqd54.0 - 100.0 fLRemisol Heme Monocytes (Bld) [#/Vol]0.6 E9/LNormal0.2 - 1.0 E9/LRemisol HemeMonocytes/100 WBC (Bld)9.5 %Normal4.0 - 14.0 %Remisol HemeNeutrophils (Bld) [#/Vol]4.4 E9/LNormal 2.0 - 7.5 E9/LRemisol HemeNeutrophils/100 WBC (Bld)66.6 %Pvgaox93.0 - 75.0 % Remisol PwrcZkcchqle453.0 E9/STedwdm435.0 - 500.0 E9/LRemisol HemePlatelet mean volume (Bld) [Entitic vol]6.4 fLNormal6.4 - 10.8 fLRemisol HemeRBC (Bld) [#/Vol] 3.7 E12/LLow4.3 - 5.9 E12/LRemisol HemeWBC corrected for nucl RBC Auto (Bld) [#/Vol]6.6 E9/LNormal4.0 - 11.0 E9/LRemisol HemePre-Arrival Noteon 07-13-2023 Pre-Arrival NoteNormalAvita Health System Bucyrus HospitalTroponinon 68-29-0473Ymxirnpq 6.30 pg/mLLow10.10-27.10[facility] HospitalComment on above:Result Comment: The 95% CI (Confidence Interval) PPV (Positive Predictive Value) for myocardial infarction in females is 38 pg/mL, in males 51 pg/mL. The results should be used in conjunction with clinical conditions of myocardial infarction.(Access High Sensitivity Troponin I Instructions For Use,Raegan [place], October 2017)Performed By: #### [id number], 8992765, 0411173, 0360568 ####[facility] [address] [facility], [place] [address]OH with Cult Rflxon 37-30-3567Ajdxxbgli Ql (U)NegativeNormalNegativeAvita Health System Bucyrus HospitalComment on above:Performed By: #### [id number] ####[address] [facility], [place]Uvewltk (U)ClearNormal ClearAvita Health System Bucyrus HospitalComment on above:Performed By: #### [id number] ####[address] [facility], [place]Qqpra (U)ColorlessAbnormalYellowAvita Health System Bucyrus HospitalComment on above:Result Comment: Microscopic readings are only performed on those samples that meet specific criteria set forth by [facility].Performed By: #### [id number] ####[facility] [address] [facility], [place]Pjtxrkc Ql (U)NegativeNormalNegativeAvita Health System Bucyrus HospitalComment on above:Performed By: #### [id number] ####[facility] [address]Ncharlotte hunger[place] hospitalk, [place]Livffaexsh Auto test strip (U) [Mass/Vol]NegativeNormalNegativeAvita Health System Bucyrus HospitalComment on above: Performed By: #### [id number] ####[facility] [address]uqfaw[address] AveNcharlotte hungerford hospitalk, [place]Qjysbdx Auto test strip Ql (U)NegativeNormalNegative [facility] HospitalComment on above:Performed By: #### [id number] ####[facility] [address] AveNcharlotte hungerford hospitalk, [place] Leukocyte esterase Auto test strip Ql (U)NegativeNormalNegativeAvita Health System Bucyrus HospitalComment on above:Performed By: #### [id number] ####[facility] [address] [place], [place]Shakfwx Auto test strip Ql (U)NegativeNormalNegativeAvita Health System Bucyrus HospitalComment on above: Performed By: #### [id number] ####[address] [place] [id number] (U)6.5 [pH]Invalid Interpretation Code5.0-9.0 [facility] HospitalComment on above:Performed By: #### [id number] ####[address] [place], [place] Protein Ql (U)NegativeNormalNegativeAvita Health System Bucyrus HospitalComment on above: Performed By: #### [id number] ####[address] [place]Qcrtxrpd gravity (U) [Rel density]1.007Invalid Interpretation Code1.005-1.030[facility] HospitalComment on above: Performed By: #### [id number] ####[address] [place], [place]Ouwarucjnxuw (U) [Mass/Vol]NegativeNormalNegative [facility] HospitalComment on above:Performed By: #### [id number] ####[address] [place], [place]Oubp of Urine collection methodClean CatchNormalAvita Health System Bucyrus HospitalComment on above:Performed By: #### [id number] ####[address] [place], [place]XTHVEVUEUIQxoisbj By: SYSTEM SYSTEM on 03-56-7360Nlvaavjcj Ql (U)NegativeNormalNegativemg/dLPARKSIDE PSYCH[facility]ATRIC [facility] UA Auto SSClarity (U) Clear (07/13/23 7:58 PM)NormalClearFTMC UA Auto SSColor (U)Colorless 1 *ABN* (07/13/23 7:58 PM)Invalid Interpretation CodeYellowPARKSIDE PSYCHIATRIC HOSPITAL [facility] [place] UA Auto SSComment on above:Interpretive Data: Microscopic readings are only performed on those samples that meet specific criteria set forth by [facility].Glucose Ql (U)NegativeNormalNegativemg/dLPARKSIDE PSYCHIATRIC [facility]OS[facility] [place] UA Auto SSHemoglobin Auto test strip (U) [Mass/Vol]NegativeNormalNegativemg/dLPARKSIDE PSYCHIATRIC HOS[facility] [place] UA Auto SSKetones Auto test strip Ql (U)NegativeNormalNegativemg/dLPARKSIDE PSYCHIATRIC HOS[facility] [place] UA Auto SSLeukocyte esterase Auto test strip Ql (U)NegativeNormalNegativeLeu/uLPARKSIDE PSYCHIATRIC [facility]OS[facility] [place] UA Auto SS Nitrite Auto test strip Ql (U)NegativeNormalNegativemg/dLPARKSIDE PSYCHIATRIC [facility]OS[facility] UA Auto SSpH (U) 6.5 *NA* (07/13/23 7:58 PM)Invalid Interpretation Code5.0 - 9.0PAR[facility] UA Auto SSProtein Ql (U)NegativeNormalNegativemg/dLPARKSIDE PSYCHIATRIC [facility] [place] UA Auto SSSpecific gravity (U) [Rel density] 1.007 *NA* (07/13/23 7:58 PM)Invalid Interpretation Code1.005 - 1.030[facility] UA Auto SS Urobilinogen (U) [Mass/Vol]NegativeNormalNegativemg/dLPARKSIDE PSYCHIATRIC [facility] [place] UA Auto SSURINALYSIS Ordered By: Hank Beard on 73-77-9154DM Spec DescClean Catch (07/13/23 7:58 PM)NormalPARKSIDE PSYCHIATRIC [facility] UA Auto SS egfron 16-64-3071yECF67 mL/min/1.73 u4Xzkyfw>=59[facility] HospitalComment on above:Order Comment: Order added by Discern Expert.Performed By: #### [id number], 4663859, 2180271, 4316490 ####[facility] [address] [place] [address]Doeuxtufb Instructions on 82-88-9928Jirnzools Instructions [id number]#1.00TIFFNormalAvita Health System Bucyrus HospitalBMPon 52-26-5451Mmjjl gap [Moles/Vol]9 mmol/LNormal6-16[facility] HospitalComment on above:Performed By: #### 3750138, 53931601 ####[address] [address]Bloiklj [Mass/Vol]8.0 mg/dLLow8.9-11.1FWright-Patterson Medical CenterComment on above: Performed By: #### 6198676, 31135193 ####[address] [address]Xewimqre [Moles/Vol]96 mmol/LLow 101-111[facility] HospitalComment on above:Performed By: #### 0017302, 71117201 ####[address] [address]EX0 [Moles/Vol]24 mmol/KYkcpdp07-77ZwapqrAvita Health System Bucyrus HospitalComment on above:Performed By: #### 8325063, 12257063 ####[address] [address]Aphnzpowue [Mass/Vol]0.7 mg/dLNormal 0.5-1.3FWright-Patterson Medical CenterComment on above:Performed By: #### 0686720, 76277334 ####[address] [address]Auwkjtz [Mass/Vol]137 mg/rLKdjsyv72-426SlscibAvita Health System Bucyrus HospitalComment on above:Performed By: #### 3628861, 02689049 ####[address] [address]Jjosxphex [Moles/Vol]3.9 mmol/LNormal 3.5-5.3FWright-Patterson Medical CenterComment on above:Performed By: #### 0700489, 30522002 ####[address] [address]Owpkrh [Moles/Vol]125 mmol/XYmu825-283PviotoAvita Health System Bucyrus HospitalComment on above:Performed By: #### 8980953, 79267104 ####[address] Ave[place], [place] [address]Ofqp nitrogen [Mass/Vol]18 mg/dL Normal5-21[facility] HospitalComment on above:Performed By: #### 5558749, 53642422 ####[facility] [address] [place], [place] [address]Vfwq nitrogen/Creatinine [Mass ratio]26 No BbrugMsvi40-57 [facility] HospitalComment on above:Performed By: #### 1822111, 72839217 ####[facility] [address] [place] [address] CHEMISTRYOrdered By: SYSTEM SYSTEM on 15-98-6687Ratnnt [Moles/Vol]129 mmol/LLow 135 - 145 mmol/LRemisol ChemAnion gap [Moles/Vol]9 mmol/LNormal6 - 16 mEq/L Remisol ChemCalcium [Mass/Vol]8.0 mg/dLLow8.9 - 11.1 mg/dLRemisol ChemChloride [Moles/Vol]96 mmol/RBuy503 - 111 mmol/LRemisol ChemCO2 [Moles/Vol]24 mmol/L Mmykpz81 - 31 mmol/LRemisol ChemCreatinine [Mass/Vol]0.7 mg/dLNormal0.5 - 1.3 mg/dLRemisol DqriuZVX09 mL/min/1.73 t5Guqetx>=59mL/min/1.73 s7Bhugmxy Chem Glucose [Mass/Vol]137 mg/lNOstlgo23 - 199 mg/dLRemisol ChemPotassium [Moles/Vol] 3.9 mmol/LNormal3.5 - 5.3 mmol/LRemisol ChemSodium [Moles/Vol]125 mmol/KPtb320 - 145 mmol/LRemisol ChemUrea nitrogen [Mass/Vol]18 mg/dLNormal5 - 21 mg/dLRemisol ChemUrea nitrogen/Creatinine [Mass ratio]26 mg/ceBken72 - 20Remisol ChemSodium [Moles/Vol]127 mmol/QTtz581 - 145 mmol/LRemisol ChemDischarge Note-Nursingon 33-30-2293Qkwbypusl Note-NursingNormLouis Stokes [facility] Medical CenterInpatient Clinical Summaryon 48-68-8698Rpsmuhtmc Clinical SummaryNormLouis Stokes [facility] Medical CenterInpatient Patient Summaryon 29-60-3628Umnosjdhl Patient Summary [facility] JacksonInterdisciplinary Note - Case Manageron 68-94-4800Wfopnfadjmdzqqdkn Note - Case ManagerNoBerger Hospital Comment on above:Result Comment: Electronically Signed By: Jg GONZALEZ, Stacey\.br\Date and Time Signed: 07/11/23 11:58 EDTMonitor Recordon 07-11-2023 Monitor [id number]#1.00TIFUniversity Hospitals Conneaut Medical CenterMonitor Record [id number]#1.00TIFUniversity Hospitals Conneaut Medical CenterMonitor [id number]#1.00TIFFNoFort Hamilton HospitalMonitor Record [id number]#1.00TIFUniversity Hospitals Conneaut Medical CenterMonitor [id number]#1.00TIFFCoshocton Regional Medical Centerodiumon 88-23-0943Pseowd [Moles/Vol]129 mmol/LLow 135-145[facility] HospitalComment on above:Performed By: #### [id number] ####[facility] [address] [place] [address] Sodium [Moles/Vol]127 mmol/PUov458-496KqubsdAvita Health System Bucyrus HospitalComment on above:Performed By: #### [id number] ####[facility] [address] [place], [place] [address]Xxsbkn [Moles/Vol]129 mmol/IFax627-533JhufvaAvita Health System Bucyrus HospitalComment on above:Performed By: #### 6652057 ####[facility] [address] [place] [address]sUWSua 54-19-6928gZAZ 85 mL/min/1.73 i5Yajkcn>=59Av[facility]cy[facility] HospitalComment on above:Order Comment: Order added by Discern Expert.Performed By: #### [id number], [id number] ####[address] [place] [place], [place] [address]DYAdz [id number] gap [Moles/Vol]8 mmol/LNormal6-16[facility] Comment on above:Performed By: #### [id number], [id number] ####[address] [address]Txxtstg [Mass/Vol]8.2 mg/dLLow8.9-11.1FWright-Patterson Medical CenterComment on above:Performed By: #### [id number], [id number], [id number] ####[address] [address]Ugpenyxa [Moles/Vol]92 mmol/ONzm635-489CvzjrhAvita Health System Bucyrus HospitalComment on above:Performed By: #### [id number], [id number], [id number] ####[address] [address]HH1 [Moles/Vol]27 mmol/ZNxopyq37-40QsidsrAvita Health System Bucyrus HospitalComment on above: Performed By: #### [id number], [id number], [id number] ####[address] [address]Doenjtjyxi [Mass/Vol]0.7 mg/dLNormal 0.5-1.3FWright-Patterson Medical CenterComment on above:Performed By: #### [id number], [id number], [id number] ####[address] [address]Zkhhnxg [Mass/Vol]87 mg/vSDtfsag80-278PbumluAvita Health System Bucyrus HospitalComment on above:Performed By: #### [id number], [id number], [id number] ####[address], [place] [address]Wppnjuquc [Moles/Vol]4.4 mmol/LNormal3.5-5.3FWright-Patterson Medical CenterComment on above: Performed By: #### [id number], [id number], [id number] ####[address] [address]Oytlcs [Moles/Vol]123 mmol/LLow 135-145Av[facility] Bucy[facility] HospitalComment on above:Performed By: #### [id number], [id number], [id number] ####[address] [address]Mpqh nitrogen [Mass/Vol]17 mg/dLNormal5-21[facility] HospitalComment on above:Performed By: #### 7527504, 97888412, 3381786 ####[address] [address]Mqtb nitrogen/Creatinine [Mass ratio]24 No BfjgwQbif09-02SjbqueAvita Health System Bucyrus Hospital Comment on above:Performed By: #### 9320641, 62394920, 6781895 ####[address] [address]TIK w/ Auto Diffon 43-40-9528Iruhhfpdt/100 WBC (Bld)0.7 %Normal0.0-2.0[facility] Comment on above:Performed By: #### 5258807, 10622334, 5330471 ####[address] [address]Rolcbxhzy/Leukocytes Auto (Bld) [Pure # fraction]0.0 E9/LNormal0.0-0.2[facility] Comment on above:Performed By: #### 5025126, 60962898, 2519671 ####[address] [address]Fgpvfsjnnjn (Bld) [#/Vol]0.3 E9/LNormal0.0-0.5Fisher Nick Medical CenterComment on above: Performed By: #### 4733050, 01343247, 6697762 ####[address] [address]Wmkbpuawdpt/100 WBC (Bld)4.3 %Normal 0.0-8.0[facility] HospitalComment on above:Performed By: #### 2232564, 42468580, 3009086 ####[address] [address]Vdsntldssde distribution width (RBC) [Ratio]13.8 %Normal 10.9-14.2FW[facility]-Patterson Medical CenterComment on above:Performed By: #### 6053942, 62876929, 4546687 ####[address] [address]Ddxmookdic (Bld) [Volume fraction]28.8 %Low34.0-46.0[facility] HospitalComment on above:Performed By: #### 1770426, 15125382, 6428152 ####[address] [address]Koiooifurg (Bld) [Mass/Vol]10.0 g/dLLow12.0-16.0[facility] Comment on above:Performed By: #### 8788896, 77153885, 6648168 ####[address] [address]Uhhuhweitde (Bld) [#/Vol]1.5 E9/LNormal1.0-4.0[facility] HospitalComment on above: Performed By: #### 8454090, 38327581, 6466280 ####[address] [address]Ofnxuyusrnz/100 WBC (Bld)21.5 %Normal 14.0-50.0[facility] HospitalComment on above:Performed By: #### 6613968, 02767072, 6272665 ####[address] [address]QXC (RBC) [Entitic mass]30.5 oqZewoto40.0-34.0[facility] HospitalComment on above:Performed By: #### 8840873, 77429087, 7084567 ####[address] [address]ZBZR (RBC) [Mass/Vol]34.6 g/kBLexjsb44.4-36.0[facility] HospitalComment on above:Performed By: #### 4564439, 63553420, 9695056 ####[address] [address]QCB (RBC) [Entitic vol]88.3 fL Aebkco12.0-100.0[facility] HospitalComment on above:Performed By: #### 0512445, 83954237, 2517701 ####[address] [address]Scpgrhyud (Bld) [#/Vol]0.6 E9/LNormal0.2-1.0[facility] HospitalComment on above:Performed By: #### 4028549, 39432017, 8665879 ####[address] [address]Popcmmalaok (Bld) [#/Vol]4.4 E9/LNormal2.0-7.5[facility] Comment on above:Performed By: #### 8078327, 67715043, 6490414 ####[address] [address]Vxluvppjqhl/100 WBC (Bld)64.1 %Dibujg27.0-75.0[facility] HospitalComment on above:Performed By: #### 5742964, 22577219, 4370249 ####[address] [address]Wutlskuf mean volume (Bld) [Entitic vol]6.7 fLNormal6.4-10.8[facility] HospitalComment on above:Performed By: #### 1706541, 05856023, 0191897 ####[facility] [address] [place], [place] [address]Nwolryuwm (Bld) [#/Vol]183.0 E9/L Oqjocy243.0-500.0[facility] HospitalComment on above:Performed By: #### 3568201, 93670452, 2776736 ####[facility] [address] [place] [address]BRC (Bld) [#/Vol]3.3 E12/LLow4.3-5.9[facility] HospitalComment on above:Performed By: #### 8951495, 01968277, 6275121 ####[facility] [address] [place], [place] [address]CED corrected for nucl RBC Auto (Bld) [#/Vol]6.9 E9/LNormal4.0-11.0[facility] HospitalComment on above:Performed By: #### 7847008, 64942199, 7729703 ####[facility] [address] [place] [address] CHEMISTRYOrdered By: SYSTEM SYSTEM on 83-22-5914Ffzrv gap [Moles/Vol]8 mmol/L Normal6 - 16 mEq/LRemisol ChemCalcium [Mass/Vol]8.2 mg/dLLow8.9 - 11.1 mg/dL Remisol ChemChloride [Moles/Vol]92 mmol/JRum800 - 111 mmol/LRemisol ChemCO2 [Moles/Vol]27 mmol/CCxucdz92 - 31 mmol/LRemisol ChemCreatinine [Mass/Vol]0.7 mg/dLNormal0.5 - 1.3 mg/dLRemisol NtdikJDI19 mL/min/1.73 u6Fuqfbl>=59mL/min/1.73 v4Wvjcfff ChemGlucose [Mass/Vol]87 mg/dIXgoicq21 - 199 mg/dLRemisol Chem Potassium [Moles/Vol]4.4 mmol/LNormal3.5 - 5.3 mmol/LRemisol ChemUrea nitrogen [Mass/Vol]17 mg/dLNormal5 - 21 mg/dLRemisol ChemUrea nitrogen/Creatinine [Mass ratio]24 mg/psQlaa87 - 20Remisol ChemHEMATOLOGYOrdered By: SYSTEM SYSTEM on 06-95-9156Dymbyrzkw/100 WBC (Bld)0.7 %Normal0.0 - 2.0 %Remisol Heme Basophils/Leukocytes Auto (Bld) [Pure # fraction]0.0 E9/LNormal0.0 - 0.2 E9/L Remisol HemeEosinophils (Bld) [#/Vol]0.3 E9/LNormal0.0 - 0.5 E9/LRemisol Heme Eosinophils/100 WBC (Bld)4.3 %Normal0.0 - 8.0 %Remisol HemeErythrocyte distribution width (RBC) [Ratio]13.8 %Rervih24.9 - 14.2 %Remisol HemeHematocrit (Bld) [Volume fraction]28.8 %Low34.0 - 46.0 %Remisol HemeHemoglobin (Bld) [Mass/Vol]10.0 g/dLLow12.0 - 16.0 gm/dLRemisol HemeLymphocytes (Bld) [#/Vol]1.5 E9/LNormal1.0 - 4.0 E9/LRemisol HemeLymphocytes/100 WBC (Bld)21.5 %Jplkeo13.0 - 50.0 %Remisol HemeMCH (RBC) [Entitic mass]30.5 cnAzscvx00.0 - 34.0 pgRemisol HemeMCHC (RBC) [Mass/Vol]34.6 g/nEMhphxv18.4 - 36.0 gm/dLRemisol HemeMCV (RBC) [Entitic vol]88.3 zNCladxf12.0 - 100.0 fLRemisol HemeMonocytes (Bld) [#/Vol]0.6 E9/LNormal0.2 - 1.0 E9/LRemisol HemeMonocytes/100 WBC (Bld)9.4 %Normal4.0 - 14.0 %Remisol HemeNeutrophils (Bld) [#/Vol]4.4 E9/LNormal2.0 - 7.5 E9/LRemisol Heme Neutrophils/100 WBC (Bld)64.1 %Aubkkt68.0 - 75.0 %Remisol HemePlatelet mean volume (Bld) [Entitic vol]6.7 fLNormal6.4 - 10.8 fLRemisol HemePlatelets (Bld) [#/Vol]183.0 E9/BKkuwgf378.0 - 500.0 E9/LRemisol HemeRBC (Bld) [#/Vol]3.3 E12/L Low4.3 - 5.9 E12/LRemisol HemeWBC corrected for nucl RBC Auto (Bld) [#/Vol]6.9 E9/LNormal4.0 - 11.0 E9/LRemisol HemeInterdisciplinary Note - Case Manageron 95-46-2316Mrskujunuvpforbmf Note - Case [facility] Comment on above:Result Comment: Electronically Signed By: Jg GONZALEZ, Stacey\.br\Date and Time Signed: 07/10/23 10:59 EDTMonitor Recordon 07-10-2023 Monitor [id number]#1.00TIFUniversity Hospitals Conneaut Medical CenterMonitor Record [id number]#1.00TIFFNormCommunity Memorial Hospitalitor [id number]#1.00TIFFNormal [facility] HospitalProgress Note-Physicianon 72-49-6567Digcayxw Note-The MetroHealth SystemComment on above:Result Comment: Electronically Signed By: Pina Mendez CNP\.br\Date and Time Signed: 07/10/23 14:53 EDT\.br\Electronically Co-Signed By: Dyan Alatorre MD\.br\Date and Time Co-Signed: 07/10/23 20:35 EDTProgress Note-The [facility] SystemComment on above:Result Comment: Electronically Signed By: [employer] REPRESENTATIVE, Lima L\.br\Date and Time Signed: 07/10/23 11:47 EDT\.br\Electronically Co-Signed By: Ezekiel VICTOR, Mickie\.br\Date and Time Co-Signed: 07/10/23 16:46 EDT Sodiumon 82-54-9415Cjhatj [Moles/Vol]124 mmol/EFmu773-209CrcwapAvita Health System Bucyrus HospitalComment on above:Performed By: #### 7709261 ####[address] [address]Ihlvog [Moles/Vol]123 mmol/L Dxe314-493PhuqjiAvita Health System Bucyrus HospitalComment on above:Performed By: #### 4305865 ####[address] [address] Sodium [Moles/Vol]122 mmol/WIxr832-441LunlccAvita Health System Bucyrus HospitalComment on above:Performed By: #### 3044165 ####[address] [address]Ykakyt [Moles/Vol]121 mmol/GDda680-418WuffulAvita Health System Bucyrus HospitalComment on above:Performed By: #### 8079864 ####[address] [address]Nqqzma [Moles/Vol]121 mmol/GGgy848-169JjchrxAvita Health System Bucyrus HospitalComment on above:Performed By: #### 3725587 ####[address] [address]X OsmolalityOrdered By: Jeanne Ordoñez on 07-10-2023U Efpcyokfhv234 mOsm/kg Ohhmkv11-3616DLNR Man UA SSComment on above:Performed By: #### 5254187, 4376694 ####[address] [address]I SodiumOrdered By: SYSTEM SYSTEM on 82-96-0706Fminnd [Moles/Vol]16 mmol/LInvalid Interpretation CodeRemisol ChemComment on above:Performed By: #### 1154327, 5630616 ####[facility] [address] [place], [place] [address]cXWEac 55-63-1757fGEO76 mL/min/1.73 g0Jxmxdo>=59[facility] Comment on above:Order Comment: Order added by Discern Expert.Performed By: #### 3696066, 22962918, 2107163 ####[address] [place], [place] [address]SAVpi 71-82-6166Kyulvdddbl [Mass/Vol]0.6 mg/dL Normal0.5-1.3[facility] Medical CenterComment on above:Performed By: #### 5411779, 8967210, 76229395 ####[address] [address]Lpki nitrogen/Creatinine [Mass ratio]27 No Units Momj17-00JedgqqAvita Health System Bucyrus HospitalComment on above:Performed By: #### 4547879, 8543695, 57375247 ####[address] [address]Wfjgy gap [Moles/Vol]10 mmol/LNormal6-16[facility] HospitalComment on above:Performed By: #### 5772865, 0251637, 71959549 ####[address] [address]Lwmwvst [Mass/Vol]8.4 mg/dLLow8.9-11.1[facility] Medical CenterComment on above: Performed By: #### 5285820, 4907519, 17414585 ####[facility] [address] [place], [place] [address]Rnwfvlcz [Moles/Vol]91 mmol/LLow 101-111[facility] HospitalComment on above:Performed By: #### 4145033, 6793473, 15917410 ####[facility] [address] [place], [place] [address]GB6 [Moles/Vol]26 mmol/PSjjdtb76-77VvmrcxAvita Health System Bucyrus HospitalComment on above:Performed By: #### 0688162, 8664635, 05043638 ####[address] [address]Molyhmq [Mass/Vol]90 mg/gMJzjqhw86-865HqfhmxAvita Health System Bucyrus HospitalComment on above: Performed By: #### 3302643, 0540418, 12686387 ####[address] [address]Lfajgywqg [Moles/Vol]3.7 mmol/LNormal 3.5-5.3[facility] Hospital Of BaltimoreComment on above:Performed By: #### 6021036, 2226701, 77342617 ####[address] [address]Gxez nitrogen [Mass/Vol]16 mg/dLNormal5-21[facility] HospitalComment on above:Performed By: #### 1545191, 2310829, 11047594 ####[address] [address]Hctab gap [Moles/Vol]11 mmol/LNormal6-16[facility] HospitalComment on above: Performed By: #### 6619235, 67757240, 9018528, 19865931, 36817540, 49449806 ####[address] [address] Calcium [Mass/Vol]8.6 mg/dLLow8.9-11.1[facility] Of BaltimoreComment on above:Performed By: #### 3675897, 90340635, 2679951, 87891531, 39878829, 68410569 ####[address] [address]Sxbxhglc [Moles/Vol]86 mmol/XAnu304-825MfrqodAvita Health System Bucyrus HospitalComment on above:Performed By: #### 1913294, 23886320, 5671069, 35796968, 23518124, 44162758 ####[place] [address] [address]CJ0 [Moles/Vol]24 mmol/XZnplrn13-70FzfqtqAvita Health System Bucyrus HospitalComment on above:Performed By: #### 0123767, 68485536, 7028499, 68194498, 56230017, 84634889 ####[facility] [address] [place], [place] [address]Otixcjezdn [Mass/Vol]0.8 mg/dLNormal0.5-1.3[facility] Comment on above:Performed By: #### 3683140, 41000094, 4941004, 37222396, 41802477, 14467553 ####[address] [place], [place] [address]Obvytjo [Mass/Vol]110 mg/fIEpmaaj62-909PsebfyAvita Health System Bucyrus HospitalComment on above:Performed By: #### 8551910, 28472112, 2847417, 30433150, 92914889, 66764917 ####[facility] [address] [place], [place] [address]Jjomarwlk [Moles/Vol]3.8 mmol/LNormal3.5-5.3[facility] CenterComment on above:Performed By: #### 9728985, 10835817, 9899824, 98634482, 55973259, 35575393 ####[facility] [address] [place], [place] [address]Tvvo nitrogen [Mass/Vol]21 mg/dLNormal5-21[facility] HospitalComment on above:Performed By: #### 0723229, 39920033, 7382079, 94046796, 67163087, 09206871 ####[facility] [address] [place], [place] [address]Qtpi nitrogen/Creatinine [Mass ratio] 26 No EimokIvrd39-77ErludbAvita Health System Bucyrus HospitalComment on above:Performed By: #### 2632859, 49586510, 7943647, 64784398, 88204555, 21675341 ####[address] [place], [place] [address]Sdwmjo [Moles/Vol]117 mmol/AKkqfbnsu193-040DcnhjxAvita Health System Bucyrus HospitalComment on above:Result Comment: Critical Result Verified by Repeat AnalysisCritical Result S_NA of 117 Called to and read back by: LUIS E WEN/ABIGAIL at: 07/08/2023 23:26:20 by:RICARDO SUAZO Performed By: #### 6472112, 31833089, 8471983, 66531065, 73404844, 06395314 ####[address] [address]PNAgq 80-54-6633Samtaeafdwh peptide B (Bld) [Mass/Vol]90 pg/mLHigh5-80[facility] HospitalComment on above:Performed By: #### 3051932, 84847301, 7604240, 53723488, 66470288, 10875118 ####[address] [address]QHW w/ Auto Diffon 92-19-5757Fihzkifny/100 WBC (Bld)0.6 %Normal0.0-2.0[facility] HospitalComment on above:Performed By: #### 2212634, 16651218, 0912218, 37680990, 56990004, 00624763 ####[address] [address]Uciqgxwwr/Leukocytes Auto (Bld) [Pure # fraction]0.0 E9/LNormal0.0-0.2[facility] Comment on above:Performed By: #### 6733944, 35075665, 9552069, 28071640, 21538657, 42458613 ####[address] [address]Yaogqnjshzt (Bld) [#/Vol]0.3 E9/LNormal0.0-0.5[facility] Hospital Of BaltimoreComment on above:Performed By: #### 6951927, 29185111, 8034510, 98838269, 69911837, 46800309 ####[address] [place], [place] [address]Pmzpafopmch/100 WBC (Bld)3.1 %Normal0.0-8.0[facility] HospitalComment on above:Performed By: #### 6954284, 28285874, 2146488, 72687110, 26684707, 51780635 ####[address] [address]Ipfxfkcrlfm distribution width (RBC) [Ratio]13.7 %Oupidq61.9-14.2FW[facility]-Patterson Medical CenterComment on above: Performed By: #### 0864896, 79137505, 4379006, 00121510, 20476053, 68109551 ####[address] [address] Hematocrit (Bld) [Volume fraction]31.2 %Low34.0-46.0[facility] Comment on above:Performed By: #### 3973749, 10239643, 3764233, 38237009, 68389953, 08414755 ####[address] [address]Unetffrvnt (Bld) [Mass/Vol]10.7 g/dLLow12.0-16.0[facility] HospitalComment on above:Performed By: #### 7452984, 99618933, 8078203, 64518295, 54597627, 75261757 ####[address] [address]Fqhlbzzvetd (Bld) [#/Vol]1.4 E9/LNormal1.0-4.0 [facility] HospitalComment on above:Performed By: #### 6638212, 39147012, 6853892, 21515376, 37532211, 81140416 ####[address] [address]Sritlvjmdsv/100 WBC (Bld)16.9 %Normal 14.0-50.0[facility] HospitalComment on above:Performed By: #### 8824031, 04876276, 8921758, 38553363, 41601744, 49072343 ####[address] [place], [place] [address]FDI (RBC) [Entitic mass]30.1 pg Ddrdzg04.0-34.0[facility] HospitalComment on above:Performed By: #### 5778206, 58634051, 3469247, 13693413, 66231096, 66540782 ####[address] [address]HAJP (RBC) [Mass/Vol] 34.4 g/yLBgbyej19.4-36.0[facility] HospitalComment on above:Performed By: #### 3295046, 57989551, 9863355, 86268196, 60535902, 34219827 ####[address] [address]EPR (RBC) [Entitic vol]87.6 kPMrxijx53.0-100.0[facility] HospitalComment on above: Performed By: #### 9830618, 24586276, 9045774, 52661783, 10623118, 77907328 ####[address] [address] Monocytes (Bld) [#/Vol]0.9 E9/LNormal0.2-1.0[facility] HospitalComment on above:Performed By: #### 4177759, 78136912, 6606530, 08751051, 32193419, 11775944 ####[address] [address]Qoqkhololsa (Bld) [#/Vol]5.6 E9/LNormal2.0-7.5[facility] Comment on above:Performed By: #### 1141941, 56590104, 5665573, 86365327, 02930700, 89417044 ####[address] [address]Efeppdvkwht/100 WBC (Bld)68.6 %Yeeyvg13.0-75.0[facility] HospitalComment on above:Performed By: #### 4931102, 52386163, 9253045, 00607846, 18444780, 93650868 ####[address] [address]Fqonnixd817.0 E9/IXgvkur943.0-500.0[facility] HospitalComment on above:Performed By: #### 1848810, 35539601, 2962544, 14625198, 24130500, 07223793 ####[place] [address] [address]Ooabdekf mean volume (Bld) [Entitic vol]6.4 fL Normal6.4-10.8[facility] HospitalComment on above:Performed By: #### 7662039, 91912838, 9784222, 47824972, 18686314, 13470455 ####[address] [address]JSN (Bld) [#/Vol]3.6 E12/LLow4.3-5.9[facility] HospitalComment on above:Performed By: #### 2159224, 31913141, 8743384, 73477970, 26679960, 37664526 ####[address] [address]ZQP corrected for nucl RBC Auto (Bld) [#/Vol]8.2 E9/LNormal4.0-11.0[facility] HospitalComment on above:Performed By: #### 9119305, 04807431, 9270567, 82289479, 63068700, 55148550 ####[address] [address]TJGDRUEMFAasbklv By: SYSTEM SYSTEM on 38-50-4337Fdhxd gap [Moles/Vol]10 mmol/LNormal6 - 16 mEq/LRemisol ChemCalcium [Mass/Vol]8.4 mg/dLLow8.9 - 11.1 mg/dLRemisol ChemChloride [Moles/Vol]91 mmol/PIhk186 - 111 mmol/LRemisol ChemCO2 [Moles/Vol]26 mmol/MIwsfyg83 - 31 mmol/LRemisol ChemCreatinine [Mass/Vol]0.6 mg/dLNormal0.5 - 1.3 mg/dLRemisol WsniaGZF13 mL/min/1.73 y5Fgyllh>=59mL/min/1.73 t2Oasbibx ChemGlucose [Mass/Vol]90 mg/hAUhpqfe58 - 199 mg/dLRemisol Chem Potassium [Moles/Vol]3.7 mmol/LNormal3.5 - 5.3 mmol/LRemisol ChemUrea nitrogen [Mass/Vol]16 mg/dLNormal5 - 21 mg/dLRemisol ChemUrea nitrogen/Creatinine [Mass ratio]27 mg/otVvka29 - 20Remisol ChemSodium [Moles/Vol]26 mmol/LInvalid Interpretation CodeRemisol ChemCHEMISTRYOrdered By: Shreya Suazo on 07-09-2023 U Lmkrfoqknj052 mOsm/rpYkvbcq35 - 1400 mOsm/kgPAR[facility]IDE [facility] [place] Man UA SSCT Chest w/o Contraston 25-11-0375WD Chest w/o ContrastHolzer Medical Center – Jackson Consultation Noteon 70-11-9881Tcjzlmnwlvqb NoteHolzer Medical Center – Jackson Comment on above:Result Comment: Electronically Signed By: Dyan Alatorre MD\.br\Date and Time Signed: 07/09/23 15:25 EDTED Clinical Summaryon 43-73-0926SC Clinical SummaryNoTriHealth Note-Physician on 81-75-3316PS Note-PhysicianHolzer Medical Center – JacksonComment on above: Result Comment: Electronically Signed By: Benton Sutherland DO\.br\Date and Time Signed: 07/09/23 01:30 EDTED Patient Education Noteon 91-27-4051OW Patient Education NoteNoTriHealth Patient Summaryon 64-95-9632JN Patient SummaryNormLouis Stokes Cleveland VA Medical CenterInfluenza A&B Agon 07-09-2023 Influenzae A AgNegativeNormalNegativeAvita Health System Bucyrus HospitalComment on above:Performed By: #### [id number], 78983114 ####[place] [facility] [address] [place], [place] [address]Ujimgnnsfq B AgNegativeNormalNegative [facility] HospitalComment on above:Result Comment: Test sensitivity and specificity vary for age group, specimen type, antigen types, and prevalence of disease. Test results must be evaluated in conjunction with other clinical data available to the physician. Individuals who received nasally administered Influenza A vaccine may havepositive test results up to 3 days after vaccination.Performed By: #### [id number], 28599900 ####[place] [facility] [address] [place], [place] [address]Ccyfvzdqcphopejsq Note - Case Manageron 74-77-3812Tntedlhixrphzrdxm Note - Case ManagerHolzer Medical Center – JacksonComment on above:Result Comment: Electronically Signed By: Jg GONZALEZ, Stacey\.chepe\Date and Time Signed: 07/09/23 11:09 EDTMessage from Medicareon 34-75-9269Ayhnknh from Medicare [id number]#1.00TIFFHolzer Medical Center – JacksonMonitor Recordon 63-29-6849Jkpyvss Record [id number]#1.00TIFFNormLouis Stokes Cleveland VA Medical CenterMonitor [id number]#1.00TIFFNormal [facility] HospitalMonitor Record [id number]#1.00TIFFHolzer Medical Center – JacksonPT & PTTon 70-37-2964gIWK Coag (PPP) [Time]30.7 second(s)Idrcoj30.1-36.5 [facility] HospitalComment on above:Result Comment: Parameter 15 days - 4 weeks 1 - 5 months 6 - 11 months 1 - 5 years 6 - 10 years 11 - 17 years PTT Mean: 35.4 (27.6-45.6) Mean: 33.5 (24.8-40.7) Mean: 32.4 (25.1-40.7) Mean: 31.6 (24.0-39.2) Mean: 31.6 (26.9-38.7) Mean: 31.0 (24.6-38.4) Pediatric Reference ranges were obtained from astudy by Dharmesh Marin et alChinmay prepared from 1437 samples obtained at 7 different centers using [employer] coagulation reagent and instrumentation as [facility]. Currently there are no coagulation studies available worldwide for children to 14 days, and no normal ranges. Heparin therapeutic range (represented by Anti-Factor Xa activity of 0.2 - 0.4 U/mL) corresponds to PTT of 56.6 - 109.0 sec.Performed By: #### 2722058, 60317096, 5028210, 62399345, 48827264, 12334210 ####[facility] [address] [place], [place] [address]ILC Coag (PPP) [Relative time]0.91 {INR}Invalid Interpretation EliasAvita Health System Bucyrus HospitalComment on above: Result Comment: INR results are specifically intended to assess patients stabilized on long-term Anticoagulation therapy suggested INR?s ?Less Intensive Anticoagulation? 2.0 ? 3.0Conventional Range 3.0 ? 4.5Performed By: #### 3837993, 63620060, 8092959, 30733267, 64511958, 48031057 ####[facility] [address] [place], [place] [address]DK Coag (PPP) [Time] 10.2 second(s)Normal9.4-12.5FWright-Patterson Medical CenterComment on above:Result Comment: 15 days - 4 weeks 1 - 5 months 6 -11 months 1 ? 5 years 6 ? 10 years 11 -17 years Mean: 11.2 (9.5 ? 12.6) Mean: 11.0 (9.7 ? 12.8) Mean: 11.0 (9.8 ? 13.0) Mean: 11.3 (9.9 ? 13.4) Mean:11.7 (10.0 ? 14.6) Mean: 11.8 (10.0 - 14.1) Pediatric Reference ranges were obtained from a study by Dharmesh Marin et al. prepared from 1437 samples obtained at 7 different centers using the same coa gulation reagent and instrumentation as [facility]. Currently there are no coagulation studies available worldwide for children to 14 days, and no normal ranges.Performed By: #### [id number] ####[address] [place], [place] [address]Ouqptjju Note-Physicianon [id number] Note-PhysicianNoBerger HospitalComment on above:Result Comment: Electronically Signed By: Lima ROSAS CNP\.br\Date and Time Signed: 07/09/23 11:59 EDT\.br\Electronically Co-Signed By: Ezekiel VICTOR, Mickie\.br\Date and Time Co- Signed: 07/09/23 13:28 EDTRapid COVID Antigen ([facility])on [id number] COV Int NEG CtlPassNormalAvita Health System Bucyrus HospitalComment on above:Performed By: #### [id number] ####[address] [place], [place] [address]Yqhvh COV Int POS CtlPassNormLouis [facility] Comment on above:Performed By: #### [id number] ####[address] [id number]-PxY+SARS-CoV-2 (COVID-19) Ag IA.rapid Ql (Resp)Not detectedNormalNot DetectedAvita Health System Bucyrus HospitalComment on above:Result Comment: The [employer]? System for Rapid Detection of SARS-CoV-2 is a chromatographic digital immunoassay intended for the direct and qualitative detection of SARS-CoV-2 nucleocapsid antigensin nasal swabs from individuals who are suspected of COVID-19 by their healthcare provider within the first five days of the onset of symptoms. Negative results should be treated as presumptive, do not rule out SARS-CoV-2 infection and should not be used as the sole basis for treatment or patient management decisions, including infection control decisions. Negative results should be considered inthe context of a patient?s recent exposures, history [...] the declaration that circumstances exist justifying the authori zation of emergency use of in vitro diagnostics for detection and/or diagnosis of the virus that causes COVID-19 under Section 564(b)(1) of the Act, 21 U.S.C. ? 360bbb-3(b)(1), unless the authorization is terminated or revoked sooner. Performed By: #### [id number], [id number] ####[place] X[address]gmiqot[address] [place], [place] [address]Jlgbnwcuwgu Panel by PCRon 07-09-2023 Adenovirus DNA ALEXANDRU+non-probe Ql (Nph)Not detectedNormalFisher Sinai Hospital Of BaltimoreComment on above:Result Comment: Testing was performed using nucleic acid amplification including Influenza A, Influenza A H1, Influenza A H3, Influenza B, RSV A, RSV B, Adenovirus, Human Metapneumovirus, Parainfluenza 1,2,3, and 4, Rhinovirus, Bordetella parapertussis/bronchiseptica, Bordetella holmesii, and Bordetella pertussis.Performed By: #### [id number] ####Osuna [address], ZT[address]M. parapertussis DNA ALEXANDRU+probe Ql (Upper resp)Not detectedNormalNot DetectedAvita Health System Bucyrus HospitalComment on above:Performed By: #### [id number] ####Enrrique [address]B. pertussis DNA ALEXANDRU+probe Ql (Upper resp)Not detectedNormalNot DetectedAvita Health System Bucyrus HospitalComment on above: Performed By: #### [id number] ####Osuna [address], KE[address]FLEWO H1 RNA ALEXANDRU+non-probe Ql (Nph)Not detected NormalAvita Health System Bucyrus HospitalComment on above:Performed By: #### [id number] ####Enrrique [address], SN[address]RYYAK H3 RNA ALEXANDRU+non-probe Ql (Nph)Not detectedNormalAvita Health System Bucyrus Hospital Comment on above:Performed By: #### [id number] ####[place]una [address], XH[address]GMAXL RNA ALEXANDRU+non-probe Ql (Nph)Not detectedNormalAvita Health System Bucyrus HospitalComment on above:Performed By: #### [id number] ####Enrrique [address], [place] [address]RDIWX RNA ALEXANDRU+non-probe Ql (Nph)Not detectedNormalAvita Health System Bucyrus HospitalComment on above:Performed By: #### [id number] ####[address], IJ[address]Kyspg MetapneumovirusNot detectedNormalAvita Health System Bucyrus HospitalComment on above:Result Comment: This test result should be correlated with clinical presentations and medical history by a healthcare provider to determine its clinical significance.Performed By: #### [id number] ####Enrrique [place] [address] W[address] AveNorwaterbury hospital, [place]Vuzopxbxfpaxn virus 1 RNA ALEXANDRU+non-probe Ql (Nph)Not detected NormalAvita Health System Bucyrus HospitalComment on above:Performed By: #### [id number] ####Enrrique [address] [facility] [facility], [place] Parainfluenza virus 2 RNA ALEXANDRU+non-probe Ql (Nph)Not detectedNormalAvita Health System Bucyrus HospitalComment on above:Performed By: #### [id number] ####Enrrique [address] [facility] [facility], YF[address]Oozjrohfqvizo virus 3 RNA ALEXANDRU+non-probe Ql (Nph)Not detectedNormalAvita Health System Bucyrus HospitalComment on above:Performed By: #### [id number] ####Enrrique [address] [facility], [place]Mlxmylywwbavr virus 4 RNA ALEXANDRU+non- probe Ql (Nph)Not detectedNormLouis Stokes Cleveland VA Medical CenterComment on above: Performed By: #### [id number] ####Enrrique [address], [place]Ewfj Panel Intrl QCPassNormLouis Stokes Cleveland VA Medical CenterComment on above:Performed By: #### [id number] ####Enrrique [address] [facility] [facility], RR[address]Elpvvzssar+Enterovirus RNA ALEXANDRU+non-probe Ql (Nph)Not detectedNormLouis Stokes Cleveland VA Medical CenterComment on above:Performed By: #### [id number] ####[place]una [address] [facility] [facility], [place]VZN RNA ALEXANDRU+non-probe Ql (Nph)Not detectedNormalAvita Health System Bucyrus HospitalComment on above:Performed By: #### [id number] ####Enrrique [address] [facility], [place] [address]Gjizilfu 79-80-4391Biwyus [Moles/Vol]120 mmol/OHcqsljgf441-675XmzvprAvita Health System Bucyrus HospitalComment on above:Performed By: #### [id number] ####[place] [address] [place], [place] [address]Mcxmzw [Moles/Vol]123 mmol/JDfo551-441JwmqjsAvita Health System Bucyrus HospitalComment on above:Performed By: #### [id number] ####[address] [address]Ddvlvh [Moles/Vol]123 mmol/ZYds583-942OepdoxAvita Health System Bucyrus HospitalComment on above:Performed By: #### [id number] ####[address] [address]Yqkeqz [Moles/Vol]123 mmol/KOvm481-534ZayuzyAvita Health System Bucyrus HospitalComment on above:Performed By: #### [id number], 4903569, [id number] ####[address] [address] Troponin 0 Hr.on 20-41-8906Ygdolcqn8.70 pg/mLLow10.10-27.10Av[facility] Bucyrus HospitalComment on above:Result Comment: The 95% CI (Confidence Interval) PPV (Positive Predictive Value) for myocardial infarction in females is 38 pg/mL, in males 51 pg/mL. The results should be used in conjunction with clinical conditions of myocardial infarction.(Access High Sensitivity Troponin I Instructions For Use,Raegan Nolan, October 2017)Performed By: #### [id number], [id number], 7401359, 79312927, 75191568, [id number] ####[place] [address] [place], [place] [address]O Osmolalityon 07-09-2023U Osmolality 192 mOsm/coIobkob92-0202LxnzkjAvita Health System Bucyrus HospitalComment on above:Performed By: #### 6886729, 4162458 ####[place] [address] [place], [place] [address]Z Sodiumon 80-32-9120Umskvp [Moles/Vol]26 mmol/LInvalid Interpretation CodeAvita Health System Bucyrus HospitalComment on above:Performed By: #### [id number], [id number] ####[facility] [address] [place], [place] [address]NC Chest Single Viewon 94-38-6026MQ Chest Single ViewNormal Av[facility] System Bucyrus HospitaleGFRon 65-51-2001sCWD67 mL/min/1.73 e5Btiekc>=59 [facility]cy[facility] HospitalComment on above:Order Comment: Order added by Discern Expert.Performed By: #### [id number], 7992875, [id number] ####[facility] [address] [place], [place] [address]nLEK24 mL/min/1.73 m2 Normal>=59Avita Health System Bucyrus HospitalComment on above:Order Comment: Order added by Discern Expert.Performed By: #### 5675249, 26439883, 7933045, 81911915, 36886774, 91041525 ####[facility] [address] [place], [place] [address]LYRZEFCIFGbwenap By: Shreya Suazo on 38-22-1951Sdwpbbmzptv peptide B (Bld) [Mass/Vol]90 pg/mLHigh5 - 80 pg/mLPARKSIDE [facility] HemeManSSCHEMISTRY Ordered By: SYSTEM SYSTEM on 29-59-4125Qxqbubaa2.70 pg/mLLow10.10 - 27.10 pg/mL Remisol ChemComment on above:Interpretive Data: The 95% CI (Confidence Interval) PPV (Positive Predictive Value) for myocardial infarction in females is 38 pg/mL, in males 51 pg/mL. The results should be used in conjunction withclinical conditions of myocardial infarction. (Access High Sensitivity Troponin I Instructions For Use, Raegan Nolan, October 2017)COAGULATIONOrdered By: Shreya Suazo on 47-77-1988fTGG Coag (PPP) [Time]30.7 xLgnkbd50.1 - 36.5 second(s)[facility] Auto CoagComment on above: Interpretive Data: Parameter 15 days - 4 weeks 1 - [...] the same coagulation reagent and instrumentation as [facility]. Currently there are no coagulation studies available worldwide for children to 14 days, andno normal ranges. Heparin therapeutic range (represented by Anti-Factor Xa activity of 0.2 - 0.4 U/mL) corresponds to PTT of 56.6 - 109.0 sec.INR Coag (PPP) [Relative time]0.91 {INR}Invalid Interpretation CodePARKSIDE PSYCHIATR[facility] [place] Auto CoagComment on above:Interpretive Data: INR results are specifically intended to assess patients stabilized on long-term Anticoagulation therapy suggested INR s Less Intensive Anticoagulation 2.0 3.0 Conventional Range 3.0 4.5PT Coag (PPP) [Time]10.2 sNormal9.4 - 12.5 second(s) [facility] Auto CoagComment on above:Interpretive Data: 15 days - 4 weeks 1 - [...] the same coagulation reagent and instrumentation as [facility]. Currently there are no coagulation studies available worldwide for children to 14 days, andno normal ranges.Consent for Treatmenton 61-90-1673Xtqsyco for Treatment [id number]#1.00TIFFNoBerger HospitalHEMATOLOGYOrdered By: SYSTEM SYSTEM on 76-29-2262Ppqacfxvn/100 WBC (Bld) 0.6 %Normal0.0 - 2.0 %Remisol HemeBasophils/Leukocytes Auto (Bld) [Pure # fraction]0.0 E9/LNormal0.0 - 0.2 E9/LRemisol HemeEosinophils (Bld) [#/Vol]0.3 E9/LNormal0.0 - 0.5 E9/LRemisol HemeEosinophils/100 WBC (Bld)3.1 %Normal0.0 - 8.0 %Remisol HemeErythrocyte distribution width (RBC) [Ratio]13.7 %Dxuifd07.9 - 14.2 %Remisol HemeHematocrit (Bld) [Volume fraction]31.2 %Low34.0 - 46.0 % Remisol HemeHemoglobin (Bld) [Mass/Vol]10.7 g/dLLow12.0 - 16.0 gm/dLRemisol Heme Lymphocytes (Bld) [#/Vol]1.4 E9/LNormal1.0 - 4.0 E9/LRemisol HemeLymphocytes/100 WBC (Bld)16.9 %Irctwb89.0 - 50.0 %Remisol HemeMCH (RBC) [Entitic mass]30.1 pg Wtiwvi11.0 - 34.0 pgRemisol HemeMCHC (RBC) [Mass/Vol]34.4 g/aTLqhaxf71.4 - 36.0 gm/dLRemisol HemeMCV (RBC) [Entitic vol]87.6 qVFzwhhd20.0 - 100.0 fLRemisol Heme Monocytes (Bld) [#/Vol]0.9 E9/LNormal0.2 - 1.0 E9/LRemisol HemeMonocytes/100 WBC (Bld)10.8 %Normal4.0 - 14.0 %Remisol HemeNeutrophils (Bld) [#/Vol]5.6 E9/L Normal2.0 - 7.5 E9/LRemisol HemeNeutrophils/100 WBC (Bld)68.6 %Suxqra11.0 - 75.0 %Remisol IvzgUdinflqo270.0 E9/OYyjjiy142.0 - 500.0 E9/LRemisol HemePlatelet mean volume (Bld) [Entitic vol]6.4 fLNormal6.4 - 10.8 fLRemisol HemeRBC (Bld) [#/Vol]3.6 E12/LLow4.3 - 5.9 E12/LRemisol HemeWBC corrected for nucl RBC Auto (Bld) [#/Vol]8.2 E9/LNormal4.0 - 11.0 E9/LRemisol HemeMICRO OTHER TESTSOrdered By: Shreya Suazo on 55-69-0598Bvwuxqcjpj A AgNegative (07/08/23 10:30 PM)NormalNegativePARKSIDE [facility] Man SeroInfluenzae B AgNegative 1 (07/08/23 10:30 PM)NormalNegativePARKSIDE PSYCH[facility]ATR[facility] Man SeroComment on above:Interpretive Data: Test sensitivity and specificity vary for age group, specimen type, antigen types, and prevalence of disease. Test results must be evaluated in conjunction with other clinical dataavailable to the physician. Individuals who received nasally administered Influenza A vaccine may have positive test results up to 3 days after vaccination.Rapid COV Int NEG CtlPass (07/08/23 10:30 PM)NormalPARKSIDE PSYCHIATRIC [facility] Man SeroRapid COV Int POS CtlPass (07/08/23 10:30 PM)NormalPARKSIDE PSYCHIATRIC [facility] Man SeroSARS-CoV+SARS-CoV-2 (COVID-19) Ag IA.rapid Ql (Resp)Not Detected 6 (07/08/23 10:30 PM)NormalNot DetectedFT Man SeroComment on above:Interpretive Data: The PayAlliesitor System for Rapid Detection of SARS-CoV-2 is a chromatographic digital immunoassay intended for the direct and qualitative detection of SARS-CoV-2 nucleocapsid antigens in nasal swabs from individuals who are suspected of COVID-19 by their healthcare provider withinthe first five days of the onset of [...] For in vitro diagnostic use. In the [facility], only for use under an Emergency Use [...] of proteins from SARS-CoV-2, not for any otherviruses or pathogens; and, in the [place], this test is only authorized for the duration of the declaration that circumstances exist justifying the authorization of emergency use of in vitro diagnostics for detection and/or diagnosis of the virus that causes COVID-19 under Section 564(b)(1) of the Act,21 U.S.C. 360bbb-3(b)(1), unless the authorization is terminated or revoked sooner.CNOVon 47-69-3115EPKESzewps Visit (NECVS8) ABDOULAYEErichCARLY ([id number]) 1940 F Date Time Provider Department 07/06/23 1:05 PM DELFIN DOW NECVS8 During your visit today, we recorded the following information about you: Temperature Pulse Respiration Blood pressure 97.3 degrees 61/minute 14/minute 141/56 Weight Height 86.2 kg 1.702 m Delfin Dow APRN.[employer]UR[employer] REPRESENTATIVE 07/06/2023 3:06 PM Signed [facility] Established Visit Consultation is requested by: No referring provider defined for this encounter. PCP: Hardeep Mckenzie [address] [place] [address] [address] [place] [address] CEREBROVASCULAR HISTORY Carly Marcelino is a 82 year old right-handed female. Stroke Event Information Admitted to F 05/03/23-05/07/23 The patient was transferred from an outside hospital to the [facility] with right frontal cortical SAH (eliquis [...] Aspirin Request images from ED visits at [facility] Reports she has been having anxiety [...] Bilateral shoulder injury before 1999 working in [employer] home Cataract of left eye Cataracts, bilateral [...] TONSILLECTOMY HX 2003 TRABECULOPLASTY BY LASER SURGERY 2002 correction of arterial hemmorhage left eye FAMILY [...] Medications Medication Sig spiron (more content not included)...NormalMercy Health Lorain HospitalDisfirelands regional medical centerr Instructionson 14-36-6516Xepezwdbc Instructions [id number]#1.00TIFFNoBerger HospitalDischarge [id number]#1.00TIFF [facility] Center – JacksonCNOVon 21-97-2770FEXUMadizg Visit (NSEVMN) CARLY MARCELINO ([id number]) 1940 F [place] Date Time Provider Department 06/29/23 10:30 AM CHRISTOPHER CASAREZ NSEPAULINA During your visit today, we recorded the following information about you: Temperature Pulse Respiration Blood pressure 97.2 degrees 56/minute 13/minute 126/59 Weight Height 86.2 kg 1.702 m Christopher Casarez APRN.[facility] 07/17/2023 3:22 PM Signed [facility] Established Visit Carly Marcelino [facility]#: [id number] Date of Service: 06/29/2023 Primary Care Provider: [...] seizure disorder (forceps delivery at ), HTN, 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 on clopidogrel, BLE DVT [...] (Hcc) Primary Hypertension Coronary Artery Disease Involving [place] Coronary Artery of [place] 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 Hyperlipidemia Sciatica [...] (RECONSTRUCTION PHARYNX) 2002 d (more content not included)...[facility]High[facility]2023 Anion gap [Moles/Vol]11 mmol/LNormal6-16[facility] HospitalComment on above:Performed By: #### [id number], [id number] ####[facility] N[address]yl[address]Nor[place], [place] [address]Phroyrd [Mass/Vol]9.7 mg/dLNormal 8.9-11.1FWright-Patterson Medical CenterComment on above:Performed By: #### [id number], [id number] ####[facility] Kzqpksktnn[address] W[address] AveNoralice hyde medical centerk, [place] [address]Monicdll [Moles/Vol]96 mmol/DUxi356-298UraawiAvita Health System Bucyrus HospitalComment on above:Performed By: #### [id number], [id number] ####[facility] Fssuamzslp[address] Woden AveNoralice hyde medical centerk, [place] [address]OF8 [Moles/Vol]27 mmol/ZNzsdel59-91 [facility] HospitalComment on above:Performed By: #### [id number], 5133398 ####[facility] Xcuzivxxxi[address] [place] [address] Creatinine [Mass/Vol]0.8 mg/dLNormal0.5-1.3FWright-Patterson Medical CenterComment on above:Performed By: #### [id number], [id number] ####[facility] Baewpzadmx[address] AveNorwalk, [place] [address]Nnyrjxx [Mass/Vol]90 mg/dLNormal 55-199Av[facility] Bucyrus HospitalComment on above:Performed By: #### 60705432, 5330433 ####[facility] Xic[address]vns[address] AveNorwalk, [place] [address]Wrdjjztua [Moles/Vol]4.3 mmol/LNormal3.5-5.3FWright-Patterson Medical Center Comment on above:Performed By: #### 35083905, 4872466 ####[facility] [address]emqkhz[address] [place], [place] [address]Xanpkt [Moles/Vol]130 mmol/L Dax398-841EbfborAvita Health System Bucyrus HospitalComment on above:Performed By: #### 30559754, 6645374 ####[facility] [address] [place], [place] [address]Azqr nitrogen [Mass/Vol]24 mg/dLHigh5-21[facility]cyrus HospitalComment on above:Performed By: #### 44701251, 0228661 ####[facility] [address] [place], [place] [address]Ukyk nitrogen/Creatinine [Mass ratio]30 No JewklQsws10-55EiianrAvita Health System Bucyrus Hospital Comment on above:Performed By: #### [id number], [id number] ####[facility] [address] [place], [place] [address]NTDTMPEVGLvrkxil By: SYSTEM SYSTEM on 79-19-8737Pvlpk gap [Moles/Vol]11 mmol/LNormal6 - 16 mEq/LRemisol Chem Calcium [Mass/Vol]9.7 mg/dLNormal8.9 - 11.1 mg/dLRemisol ChemChloride [Moles/Vol]96 mmol/RVdl568 - 111 mmol/LRemisol ChemCO2 [Moles/Vol]27 mmol/L Idabed85 - 31 mmol/LRemisol ChemCreatinine [Mass/Vol]0.8 mg/dLNormal0.5 - 1.3 mg/dLRemisol PbzerFKJ69 mL/min/1.73 x7Iimgip>=59mL/min/1.73 d1Sxanvmh Chem Glucose [Mass/Vol]90 mg/xYOvimdn14 - 199 mg/dLRemisol ChemPotassium [Moles/Vol] 4.3 mmol/LNormal3.5 - 5.3 mmol/LRemisol ChemSodium [Moles/Vol]130 mmol/DOuv003 - 145 mmol/LRemisol ChemUrea nitrogen [Mass/Vol]24 mg/dLHigh5 - 21 mg/dLRemisol ChemUrea nitrogen/Creatinine [Mass ratio]30 mg/lyHeic14 - 20Remisol ChemConsent for Treatmenton 50-41-9523Zwyrfwu for Treatment [id number]#1.00TIFUniversity Hospitals Conneaut Medical CenterDischarge Instructionson 20-25-2997Vvawmqhfg Instructions [id number]#1.00TIFMercy Health Lorain Hospital Clinical Summaryon 52-18-9207PQ Clinical SummaryNoTriHealth Note-Physicianon 66-83-4110NZ Note-PhysicianHolzer Medical Center – JacksonComment on above:Result Comment: Electronically Signed By: Hank Beard DO\.br\Date and Time Signed: 06/25/23 14:14EDTED Patient Education Noteon 91-96-3622AR Patient Education NoteGalion Hospital Patient Summaryon 45-06-7686QQ Patient SummaryHolzer Medical Center – JacksonPre- Arrival Noteon 06-61-7282Vhz-Arrival [facility] Medical CenterUA with Cult Rflxon 47-01-6511Awlyupbjr Ql (U)NegativeNormalNegativeAvita Health System Bucyrus HospitalComment on above:Performed By: #### [id number] ####[facility] [address] [id number] (U)ClearNormal ClearAvita Health System Bucyrus HospitalComment on above:Performed By: #### [id number] ####[facility] Swqealgpio[address] AveNabigailalice hyde medical centerleón K[place]Vkbyk (U)ColorlessAbnormalYellowAvita Health System Bucyrus HospitalComment on above:Result Comment: Microscopic readings are only performed on those samples that meet specific criteria set forth by [facility] Laboratory.Performed By: #### [id number] ####[facility] [address] [id number] Ql (U)NegativeNormalNegativeAvita Health System Bucyrus HospitalComment on above:Performed By: #### [id number] ####[facility] Xmzqhnicxq[address] AveNoralice hyde medical centerk, [place]Qlkgoevydq Auto test strip (U) [Mass/Vol]NegativeNormalNegativeAvita Health System Bucyrus HospitalComment on above: Performed By: #### [id number] ####[facility] Wnfhpvvhwu[address] AveNorwaterbury hospital, R[place]Gitgzfp Auto test strip Ql (U)NegativeNormalNegative [facility] HospitalComment on above:Performed By: #### [id number] ####[facility] Xmhdqcqllw[address] AveNthe institute of living, [address] Leukocyte esterase Auto test strip Ql (U)NegativeNormalNegativeAvita Health System Bucyrus HospitalComment on above:Performed By: #### [id number] ####[place] [address]Norwaterbury hospital, W[place]Urfylro Auto test strip Ql (U)NegativeNormalNegCleveland Clinic Union HospitalComment on above: Performed By: #### [id number] ####[place] [address]Noralice hyde medical centerk, [place]pU (U)7.5 [pH]Invalid Interpretation Code5.0-9.0 [facility] HospitalComment on above:Performed By: #### [id number] ####[place] [address]Nthe institute of living, [id number] Protein Ql (U)NegativeNormalNegativeAvita Health System Bucyrus HospitalComment on above: Performed By: #### [id number] ####[place] [address] AveNoralice hyde medical centerk, [place]Rgdsiawq gravity (U) [Rel density]1.007Invalid Interpretation Code1.005-1.030[facility] HospitalComment on above: Performed By: #### [id number] ####[place] [address]Noralice hyde medical centerk, [place]Pqigegkqrnvx (U) [Mass/Vol]NegativeNormalNegative [facility] HospitalComment on above:Performed By: #### [id number] ####[facility] Tzkwgeqwhv[address] [facility] PE[address]Vmxr of Urine collection methodClean CatchNormalFishKennedy Krieger InstituteComment on above:Performed By: #### [id number] ####[facility] Ztdtysjuov693 [facility] XB[address]HCAXAUDFQGEdmbusu By: SYSTEM SYSTEM on 24-82-9304Zadomxbcf Ql (U)NegativeNormalNegativemg/dLFT UA Auto SSClarity (U) Clear (06/25/23 1:38 PM)NormalClearFTMC UA Auto SSColor (U)Colorless 1 *ABN* (06/25/23 1:38 PM)Invalid Interpretation CodeYellowFT UA Auto SSComment on above:Interpretive Data: Microscopic readings are only performed on those samples that meet specific criteria set forth by [facility] Laboratory.Glucose Ql (U)NegativeNormalNegativemg/dLFT UA Auto SSHemoglobin Auto test strip (U) [Mass/Vol]NegativeNormalNegativemg/dLFT UA Auto SSKetones Auto test strip Ql (U)NegativeNormalNegativemg/dLFTMC UA Auto SSLeukocyte esterase Auto test strip Ql (U)NegativeNormalNegativeLeu/uLFTMC UA Auto SS Nitrite Auto test strip Ql (U)NegativeNormalNegativemg/dLFTMC UA Auto SSpH (U) 7.5 *NA* (06/25/23 1:38 PM)Invalid Interpretation Code5.0 - 9.0FT UA Auto SSProtein Ql (U)NegativeNormalNegativemg/dLFTMC UA Auto SSSpecific gravity (U) [Rel density] 1.007 *NA* (06/25/23 1:38 PM)Invalid Interpretation Code1.005 - 1.030FTMC UA Auto SS Urobilinogen (U) [Mass/Vol]NegativeNormalNegativemg/dLFT UA Auto SSURINALYSIS Ordered By: Hank Beard on 30-75-8116ZO Spec DescClean Catch (06/25/23 1:38 PM)NormalFTMC UA Auto SS eGFRon 04-87-9143nGGL69 mL/min/1.73 c7Mxjhun>=59[facility] HospitalComment on above:Order Comment: Order added by Discern Expert.Performed By: #### [id number], [id number] ####[facility] [address] [place], [place] [address]PX Note-Physicianon 42-18-7970WU Note-PhysicianHolzer Medical Center – JacksonComment on above:Result Comment: Electronically Signed By: Debbie Urrutia PA-C\.br\Date and Time Signed: 06/23/23 01:07 EDT\.br\Electronically Co-Signed By: Stacia Dwyer DO\.br\Date and Time Co-Signed: 06/23/23 21:39 EDTED Note-The MetroHealth SystemComment on above:Result Comment: Electronically Signed By: Rocio Jara PA-C\.br\Date and Time Signed: 06/08/23 19:40 EDT\.br\Electronically Co-Signed By: James Nguyen MD\.br\Date and Time Co-Signed: 06/23/23 13:46 EDT Acetamnphn Lvlon 39-93-0358Bxycsyrziei Lvl<39Pnd57-67WopxarAvita Health System Bucyrus Hospital Comment on above:Performed By: #### [id number], [id number], 9521968 ####[facility] [address] [place], [place] [address]YGKub 26-30-6870Qecag gap [Moles/Vol]12 mmol/LNormal6-16[facility] HospitalComment on above: Performed By: #### 8357552, 16772102, 9423250, 76982485, 53406886 ####[place] [facility] [address]gf[address] [place], [place] [address]Xrukqnp [Mass/Vol]9.7 mg/dLNormal8.9-11.1Fisher [facility] Hospital Of BaltimoreComment on above: Performed By: #### 7236022, 80818161, 5735285, 17932906, 70260758 ####[address] [address]Ygqvnadt [Moles/Vol]97 mmol/FDyy392-133XulttbAvita Health System Bucyrus HospitalComment on above: Performed By: #### 3628504, 89980481, 8092791, 46942177, 13525425 ####[address] [address]VX4 [Moles/Vol] 28 mmol/HGrlcfq77-86ThopikAvita Health System Bucyrus HospitalComment on above:Performed By: #### 4320197, 69595598, 1027429, 92165125, 47532052 ####[address] [address]Bhtwyjubhh [Mass/Vol]0.8 mg/dL Normal0.5-1.3FWright-Patterson Medical CenterComment on above:Performed By: #### 2322024, 22986841, 3484076, 08754972, 41155481 ####[address] [address]Rwkbezy [Mass/Vol]93 mg/dLNormal 55-199Av[facility] Bucyrus HospitalComment on above:Performed By: #### 7833111, 15985746, 0594707, 71368312, 08357050 ####[facility] [address]sm[address] [place], [place] [address]Nbfxhccjd [Moles/Vol]4.5 mmol/LNormal 3.5-5.3FWright-Patterson Medical CenterComment on above:Performed By: #### 9409607, 47248670, 4577247, 05834049, 98010753 ####[facility] [facility] [address] [place], [place] [address]Pybluv [Moles/Vol]132 mmol/ZWye777-668 [facility] HospitalComment on above:Performed By: #### 1421978, 85714026, 5446899, 63153730, 64185538 ####[facility] at[address] [place] [address]Fdap nitrogen [Mass/Vol]21 mg/dLNormal 5-21[facility] HospitalComment on above:Performed By: #### 5769987, 07212365, 0427647, 02445837, 97033099 ####[facility] [address] [place] [address]Mogk nitrogen/Creatinine [Mass ratio]26 No GitcgWmpx31-48DmstabAvita Health System Bucyrus HospitalComment on above:Performed By: #### 8923084, 64619743, 1802243, 65378663, 39639054 ####[address] [address]MRVxq 72-09-3255Uojrnvolvgt peptide B (Bld) [Mass/Vol]67 pg/mLNormal5-80[facility] HospitalComment on above: Performed By: #### [id number] ####[address] [address]ETD w/ Auto Diffon 08-60-5243Mnobfnyqn/100 WBC (Bld)0.6 %Normal0.0-2.0[facility] HospitalComment on above:Performed By: #### 0249627, 58166421, 1277589, 02487195, 29467480 ####[address] [address]Snxctrchd/Leukocytes Auto (Bld) [Pure # fraction]0.0 E9/LNormal0.0-0.2FWright-Patterson Medical CenterComment on above:Performed By: #### 1648025, 88838123, 0975444, 47923920, 02832469 ####[address] [address] Eosinophils (Bld) [#/Vol]0.1 E9/LNormal0.0-0.5FWright-Patterson Medical CenterComment on above:Performed By: #### 0391327, 33678953, 7537687, 96759256, 28701199 ####[address] [address] Eosinophils/100 WBC (Bld)1.2 %Normal0.0-8.0[facility] HospitalComment on above:Performed By: #### 1977978, 74876833, 7766484, 31397836, 18229073 ####[address] [address] Erythrocyte distribution width (RBC) [Ratio]13.7 %Xpzcih15.9-14.2FWright-Patterson Medical CenterComment on above:Performed By: #### 9120421, 63352700, 1406190, 52958225, 29215897 ####[address] [address]Sfhjnxgtbv (Bld) [Volume fraction]37.0 %Zwlipb65.0-46.0 [facility] HospitalComment on above:Performed By: #### 6563927, 20412030, 5404312, 96260305, 86541688 ####[facility] f[address] [place] [address]Qrjdcugnir (Bld) [Mass/Vol]12.6 g/dL Hustux76.0-16.0[facility] HospitalComment on above:Performed By: #### 3909097, 69909740, 3034818, 66037553, 57963402 ####[address] [address]Isezkrjtohs (Bld) [#/Vol]1.1 E9/L Normal1.0-4.0[facility] HospitalComment on above:Performed By: #### 9569832, 99077730, 4460370, 72392940, 01041101 ####[address] [address]Uedrrvddegs/100 WBC (Bld)17.5 %Normal 14.0-50.0[facility] HospitalComment on above:Performed By: #### 0478755, 27479772, 9347002, 21035883, 53984378 ####[address] [address]YYD (RBC) [Entitic mass]30.4 pgNormal 27.0-34.0[facility] HospitalComment on above:Performed By: #### 1704454, 90105177, 6925899, 84320196, 67618681 ####[place] [address]455157MCHC (RBC) [Mass/Vol]34.0 g/dLNormal 31.4-36.0[facility] HospitalComment on above:Performed By: #### 5765008, 10224234, 6088080, 96149418, 28752528 ####[address] [address]PIQ (RBC) [Entitic vol]89.5 fLNormal 80.0-100.0[facility] HospitalComment on above:Performed By: #### 8846004, 63899355, 1381807, 21356047, 83498728 ####[address] [address]Lbyxnotyc (Bld) [#/Vol]0.4 E9/LNormal 0.2-1.0[facility] HospitalComment on above:Performed By: #### 1105664, 36927623, 1574941, 50159256, 41988785 ####[address] [address]Moxwqvzgikd (Bld) [#/Vol]4.5 E9/LNormal 2.0-7.5FWright-Patterson Medical CenterComment on above:Performed By: #### 5868561, 63502490, 6294482, 23416142, 37804128 ####[address] [place], [place] [address]Vzieljeueez/100 WBC (Bld)73.7 %Normal 36.0-75.0[facility] HospitalComment on above:Performed By: #### 3133299, 93512678, 4884330, 83866456, 93679766 ####[address] [address]Wxuajxgg722.0 E9/TLapjvo189.0-500.0 [facility] HospitalComment on above:Performed By: #### 4407034, 84686707, 6069605, 77839686, 86147209 ####[address] [address]Knsjcubo mean volume (Bld) [Entitic vol]6.8 fLNormal6.4-10.8[facility] HospitalComment on above:Performed By: #### 2694459, 86583979, 0656028, 88239163, 24047310 ####[address] [address]KBJ (Bld) [#/Vol]4.1 E12/LLow 4.3-5.9[facility] HospitalComment on above:Performed By: #### 9753037, 79678673, 0122354, 89529792, 57068978 ####[address]NL[place], [place] [address]UCJ corrected for nucl RBC Auto (Bld) [#/Vol]6.2 E9/LNormal4.0-11.0[facility] HospitalComment on above: Performed By: #### 7630752, 03979819, 4910688, 91314351, 93714536 ####[facility] [address] AveNthe institute of living, [place] [address]OCBURMPTKKanffzs By: SYSTEM SYSTEM on 96-95-9866Hnkybsjlxov Lvlmicrogram/mLLow15 - 30 mcg/mL Remisol ChemEthanol Lvlmg/dLNormal<=11mg/dLRemisol ChemSalicylate Lvlmg/dLLow6 - 29 mg/dLRemisol ChemTSH Qn2.24 m[IU]/LNormal0.34 - 5.60 mcIU/mLRemisol Chem Anion gap [Moles/Vol]12 mmol/LNormal6 - 16 mEq/LRemisol ChemCalcium [Mass/Vol] 9.7 mg/dLNormal8.9 - 11.1 mg/dLRemisol ChemChloride [Moles/Vol]97 mmol/NXrm241 - 111 mmol/LRemisol ChemCO2 [Moles/Vol]28 mmol/ZEmvbcs07 - 31 mmol/LRemisol Chem Creatinine [Mass/Vol]0.8 mg/dLNormal0.5 - 1.3 mg/dLRemisol KjqnuMAL16 mL/min/1.73 s5Csvjrc>=59mL/min/1.73 z1Oiizfog ChemGlucose [Mass/Vol]93 mg/dL Vldpwa00 - 199 mg/dLRemisol ChemPotassium [Moles/Vol]4.5 mmol/LNormal3.5 - 5.3 mmol/LRemisol ChemSodium [Moles/Vol]132 mmol/EBpo364 - 145 mmol/LRemisol Chem Troponin5.70 pg/mLLow10.10 - 27.10 pg/mLRemisol ChemComment on above: Interpretive Data: The 95% CI (Confidence Interval) PPV (Positive Predictive Value) for myocardial infarction in females is 38 pg/mL, in males 51 pg/mL. The results should be used in conjunction withclinical conditions of myocardial infarction. (Access High Sensitivity Troponin I Instructions For Use, Raegan Nolan, October 2017)Urea nitrogen [Mass/Vol]21 mg/dLNormal5 - 21 mg/dLRemisol ChemUrea nitrogen/Creatinine [Mass ratio]26 mg/tzOnhq05 - 20Remisol ChemCHEMISTRYOrdered By: Luis Calixto on 11-57-5189Yvlcegcbayo peptide B (Bld) [Mass/Vol]67 pg/mL Normal5 - 80 pg/mLFT HemeManSSCOAGULATIONOrdered By: Hebert Begum on 92-62-1940jLVK Coag (PPP) [Time]33.5 jXlzpnn38.1 - 36.5 second(s)[facility] Auto Coag Comment on above:Interpretive Data: Parameter 15 days - 4 weeks 1 - [...] the same coagulation reagent and instrumentation as [facility]. Currently there are no coagulation studies available worldwide for children to 14 days, andno normal ranges. Heparin therapeutic range (represented by Anti-Factor Xa activity of 0.2 - 0.4 U/mL) corresponds to PTT of 56.6 - 109.0 sec.INR Coag (PPP) [Relative time]0.92 {INR}Invalid Interpretation CodePARKSIDE PSYCHIATRIC [facility] Auto CoagComment on above:Interpretive Data: INR results are specifically intended to assess patients stabilized on long-term Anticoagulation therapy suggested INR s Less Intensive Anticoagulation 2.0 3.0 Conventional Range 3.0 4.5PT Coag (PPP) [Time]10.3 sNormal9.4 - 12.5 second(s) [facility] Auto CoagComment on above:Interpretive Data: 15 days - 4 weeks 1 - [...] the same coagulation reagent and instrumentation as [facility]. Currently there are no coagulation studies available worldwide for children to 14 days, andno normal ranges.Consent for Treatmenton 65-76-3307Axzexvz for Treatment [id number]#1.00TIFUniversity Hospitals Conneaut Medical CenterDischarge Instructionson 91-76-2636Dlstsptgk Instructions [id number]#1.00TIFMer[facility] Health [facility] Clinical Summaryon 16-60-7750FD Clinical SummaryNoTriHealth Note-Nursingon 27-20-3990NR Note-NursingPatient ambulatory to restroom with walker, denies dizziness. Patient states I feel like i have a b elt around my stomach, and felt short of breath, upon wakening this morning. Patient's respirations equal and unlabored at this time.[facility] Note-NursingEKG was late due to no rooms being available including triage and alcove. obtained as quickly as possible.[facility] Patient Education Noteon 18-66-4278IN Patient Education Note [facility] Patient Summaryon 23-67-0000VJ Patient SummaryNoBerger HospitalEthanolon 18-24-9878Lrjjwzb Lvl<10Normal <=11[facility] HospitalComment on above:Performed By: #### [id number] ####Enrrique [facility] [address] [place] [address] HEMATOLOGYOrdered By: SYSTEM SYSTEM on 43-72-2202Jahlbhsjy/100 WBC (Bld)0.6 % Normal0.0 - 2.0 %Remisol HemeBasophils/Leukocytes Auto (Bld) [Pure # fraction] 0.0 E9/LNormal0.0 - 0.2 E9/LRemisol HemeEosinophils (Bld) [#/Vol]0.1 E9/LNormal 0.0 - 0.5 E9/LRemisol HemeEosinophils/100 WBC (Bld)1.2 %Normal0.0 - 8.0 %Remisol HemeErythrocyte distribution width (RBC) [Ratio]13.7 %Kmkmjh38.9 - 14.2 % Remisol HemeHematocrit (Bld) [Volume fraction]37.0 %Hsxqjn90.0 - 46.0 %Remisol HemeHemoglobin (Bld) [Mass/Vol]12.6 g/iOYnebpn47.0 - 16.0 gm/dLRemisol Heme Lymphocytes (Bld) [#/Vol]1.1 E9/LNormal1.0 - 4.0 E9/LRemisol HemeLymphocytes/100 WBC (Bld)17.5 %Kdndnh63.0 - 50.0 %Remisol HemeMCH (RBC) [Entitic mass]30.4 pg Yyiisb10.0 - 34.0 pgRemisol HemeMCHC (RBC) [Mass/Vol]34.0 g/oFLmrgpq95.4 - 36.0 gm/dLRemisol HemeMCV (RBC) [Entitic vol]89.5 mGKanfjx47.0 - 100.0 fLRemisol Heme Monocytes (Bld) [#/Vol]0.4 E9/LNormal0.2 - 1.0 E9/LRemisol HemeMonocytes/100 WBC (Bld)7.0 %Normal4.0 - 14.0 %Remisol HemeNeutrophils (Bld) [#/Vol]4.5 E9/LNormal 2.0 - 7.5 E9/LRemisol HemeNeutrophils/100 WBC (Bld)73.7 %Whcbxh97.0 - 75.0 % Remisol JztxYkydnzbh388.0 E9/BKruoqr011.0 - 500.0 E9/LRemisol HemePlatelet mean volume (Bld) [Entitic vol]6.8 fLNormal6.4 - 10.8 fLRemisol HemeRBC (Bld) [#/Vol] 4.1 E12/LLow4.3 - 5.9 E12/LRemisol HemeWBC corrected for nucl RBC Auto (Bld) [#/Vol]6.2 E9/LNormal4.0 - 11.0 E9/LRemisol HemeInfluenza A&B Agon 06-21-2023 Influenzae A AgNegativeNormalNegativeAvita Health System Bucyrus HospitalComment on above:Performed By: #### [id number], [id number] ####[facility] [address] [place], [place] [address]Qzftucszfv B AgNegativeNormalNegative [facility] HospitalComment on above:Result Comment: Test sensitivity and specificity vary for age group, specimen type, antigen types, and prevalence of disease. Test results must be evaluated in conjunction with other clinical data available to the physician. Individuals who received nasally administered Influenza A vaccine may havepositive test results up to 3 days after vaccination.Performed By: #### [id number], [id number] ####[facility] [address] [place], [place] [address]ZWCNU OTHER TESTSOrdered By: Jeanne Ordoñez on 32-76-2255Eilkmaegqa A AgNegative (06/21/23 2:35 PM)NormalNegativePARKS[facility] Man SeroInfluenzae B AgNegative 2 (06/21/23 2:35 PM)NormalNegativePARKSIDE [facility] Man SeroComment on above:Interpretive Data: Test sensitivity and specificity vary for age group, specimen type, antigen types, and prevalence of disease. Test results must be evaluated in conjunction with other clinical dataavailable to the physician. Individuals who received nasally administered Influenza A vaccine may have positive test results up to 3 days after vaccination.Rapid COV Int NEG CtlPass (06/21/23 2:35 PM)NormalPARKSIDE [facility] Man SeroRapid COV Int POS CtlPass (06/21/23 2:35 PM)NormalPARKSIDE PSYCHIATRIC [facility] Man SeroSARS-CoV+SARS-CoV-2 (COVID-19) Ag IA.rapid Ql (Resp)Not Detected 7 (06/21/23 2:35 PM)NormalNot DetectedPARKSIDE [facility] Man SeroComment on above:Interpretive Data: The Bow & Drape Veritor System for Rapid Detection of SARS-CoV-2 is a chromatographic digital immunoassay intended for the direct and qualitative detection of SARS-CoV-2 nucleocapsid antigens in nasal swabs from individuals who are suspected of COVID-19 by their healthcare provider withinthe first five days of the onset of [...] of proteins from SARS-CoV-2, not for any otherviruses or pathogens; and, in the [place], this test is only authorized for the duration of the declaration that circumstances exist justifying the authorization of emergency use of in vitro diagnostics for detection and/or diagnosis of the virus that causes COVID-19 under Section 564(b)(1) of the Act,21 U.S.C. 360bbb-3(b)(1), unless the authorization is terminated or revoked sooner.Monitor Recordon 11-09-5310Umtxkjq Record [id number]#1.00TIFFNormalFisher Sinai Hospital Of BaltimoreMonitor [id number]#1.00TIFFNormal [facility] BaltimorePT & PTTon 23-67-7864fRDL Coag (PPP) [Time]33.5 second(s)Obkjmb48.1-36.5Fisher [facility] Hospital Of BaltimoreComment on above:Result Comment: Parameter 15 days - 4 weeks 1 - 5 months 6 - 11 months 1 - 5 years 6 - 10 years 11 - 17 years PTT Mean: 35.4 (27.6-45.6) Mean: 33.5 (24.8-40.7) Mean: 32.4 (25.1-40.7) Mean: 31.6 (24.0-39.2) Mean: 31.6 (26.9-38.7) Mean: 31.0 (24.6- 38.4) Pediatric Reference ranges were obtained from astudy by dominik Haas al. prepared from 1437 samples obtained at 7 different centers using thesame coagulation reagent and instrumentation as [facility]. Currently there are no coagulation studies available worldwide for children to 14 days, and no normal ranges. Heparin therapeutic range (represented by Anti-Factor Xa activity of 0.2 - 0.4 U/mL) corresponds to PTT of 56.6 - 109.0 sec.Performed By: #### 3946327, 09066206, 5868208, 21307080, 84168582 ####Enr[facility] [address] [place], [place] [address]RMB Coag (PPP) [Relative time]0.92 {INR}Invalid Interpretation CodeAvita Health System Bucyrus HospitalComment on above: Result Comment: INR results are specifically intended to assess patients stabilized on long-term Anticoagulation therapy suggested INR?s ?Less Intensive Anticoagulation? 2.0 ? 3.0Conventional Range 3.0 ? 4.5Performed By: #### 2721077, 92851600, 2329813, 78118557, 05005509 ####Enrrique [facility] [address] [place], [place] [address]WW Coag (PPP) [Time]10.3 second(s) Normal9.4-12.5Fisher [facility]inai Hospital Of BaltimoreComment on above:Result Comment: 15 days - 4 weeks 1 - 5 months 6 -11 months 1 ? 5 years 6 ? 10 years 11 -17 years Mean: 11.2 (9.5 ? 12.6) Mean: 11.0 (9.7 ? 12.8) Mean: 11.0 (9.8 ? 13.0) Mean: 11.3 (9.9 ? 13.4) Mean:11.7 (10.0 ? 14.6) Mean: 11.8 (10.0 - 14.1) Pediatric Reference ranges were obtained from a study by rudi Haas. prepared from 1437 samples obtained at 7 different centers using the same coagulation reagent and instrumentation as [facility]. Currently there are no coagulation studies available worldwide for children to 14 days, and no normal ranges. Performed By: #### 1659380, 14211346, 2402536, 21006662, 59076583 ####Enrrique [facility] [address] [place], [place] [address]Yvuzb COVID Antigen ([facility])on 78-61-8519Slplz COV Int NEG CtlPassNormLouis Stokes Cleveland VA Medical CenterComment on above:Performed By: #### [id number], [id number] ####[facility] [address] [place], [place] [address]Raums COV Int POS Ctl PassNormLouis Stokes Cleveland VA Medical CenterComment on above:Performed By: #### [id number], [id number] ####Enrrique [place] [address] [place], [place] [address]EGDD-OxG+SARS-CoV-2 (COVID-19) Ag IA.rapid Ql (Resp)Not detectedNormalNot St. Mary's Medical CenterComment on above:Result Comment: The PayAlliesitor? System for Rapid Detection of SARS-CoV-2 is a chromatographic digital immunoassay intended for the direct and qualitative detection of SARS-CoV-2 nucleocapsid antigensin nasal swabs from individuals who are suspected of COVID-19 by their healthcare provider within the first five days of the onset of symptoms. Negative results should be treated as presumptive, do not rule out SARS-CoV-2 infection and should not be used as the sole basis for treatment or patient management decisions, including infection control decisions. Negative results should be considered inthe context of a patient?s recent exposures, history [...] detection and/or diagnosis of the virus that cau ses COVID-19 under Section 564(b)(1) of the Act, 21 U.S.C. ? 360bbb-3(b)(1), unless the authorization is terminated or revoked sooner.Performed By: #### [id number], [id number] ####[place] [address] [place], [place] [address]Qgbfpfxyrdpp 42-93-5289Vnrduuilro Lvl<9Ayw4-84UxcxbhAvita Health System Bucyrus HospitalComment on above:Performed By: #### 9080337, 1088772, 3758038 ####[address] [address]JGTag 46-31-7887YQP Qn2.24 m[IU]/LNormal0.34-5.60[facility] HospitalComment on above:Performed By: #### 2048388, 7806326, 1298934 ####[place] [address] [place], [place] [address]Bckymqkr 0 Hr.on 06-21-2023 Troponin5.70 pg/mLLow10.10-27.10[facility] HospitalComment on above: Result Comment: The 95% CI (Confidence Interval) PPV (Positive Predictive Value) for myocardial infarction in females is 38 pg/mL, in males 51 pg/mL. The results should be used in conjunction with clinical conditions of myocardial infarction.(Access High Sensitivity Troponin I Instructions For Use,Raegan Nolan, October 2017)Performed By: #### [id number], 02145168, 5068202, 12619598, 99999900 ####[place] [address] [place], [place] [address]WR with Cult Rflxon 09-82-8423Mryomuzgd Ql (U)NegativeNormalNegativeCarolinas Continuecare Hospital At Universityer [facility] Hospital Of BaltimoreComment on above:Performed By: #### [id number] ####[facility] [address] AveNoralice hyde medical centerk, [id number] (U)Clear NormalClearFisher Sinai Hospital Of BaltimoreComment on above:Performed By: #### [id number] ####[place] [address] AveNthe institute of living, [place] [address]Hgfzd (U)Light-YellowNormalYellowAvita Health System Bucyrus HospitalComment on above:Result Comment: Microscopic readings are only performed on those samples that meet specific criteria set forth by [facility]. Performed By: #### [id number] ####[place] [address]Nthe [address] of living, GT[address]Dkjsuqd Ql (U)NegativeNormalNegativeAvita Health System Bucyrus HospitalComment on above:Performed By: #### [id number] ####[place] [address] living, KQ[address]Khmffqwsfn Auto test strip (U) [Mass/Vol]NegativeNormalNegativeAvita Health System Bucyrus HospitalComment on above:Performed By: #### [id number] ####[facility] [address] AveNthe institute of living, DX[address]Uwjwwwg Auto test strip Ql (U)Negative NormalNegativeAvita Health System Bucyrus HospitalComment on above:Performed By: #### [id number] ####[facility] [address]wp[address]mn[address] AveNthe institute of living, [place] [address]Gctmbakqq esterase Auto test strip Ql (U)NegativeNormalNegativeAvita Health System Bucyrus HospitalComment on above:Performed By: #### [id number] ####[facility] [address]qoolpifqr[address] AveNoralice hyde medical centerk, DX[address]Ibcolsi Auto test strip Ql (U)NegativeNormalNegativeAvita Health System Bucyrus HospitalComment on above: Performed By: #### [id number] ####[place] [address] AveNoralice hyde medical centerk, IO[address]nD (U)7.5 [pH]Invalid Interpretation Code5.0-9.0 [facility] HospitalComment on above:Performed By: #### [id number] ####[address] [id number] Protein Ql (U)NegativeNormalNegativeAvita Health System Bucyrus HospitalComment on above: Performed By: #### [id number] ####[address] [id number] gravity (U) [Rel density]1.010Invalid Interpretation Code1.005-1.030[facility] HospitalComment on above: Performed By: #### [id number] ####[address] [id number] (U) [Mass/Vol]NegativeNormalNegative [facility] HospitalComment on above:Performed By: #### [id number] ####[address] [id number] of Urine collection methodClean Genesis HospitalComment on above:Performed By: #### [id number] ####[address] [id number] By: SYSTEM SYSTEM on 24-41-0030Vwkarzadd Ql (U)NegativeNormalNegativemg/dLPARKSIDE [facility] UA Auto SSClarity (U) Clear (06/21/23 2:35 PM)NormalClearFTM UA Auto SSColor (U)Light-Yellow 1 (06/21/23 2:35 PM)NormalYellowPARKSIDE PSYCHIATRIC [facility] UA Auto SSComment on above:Interpretive Data: Microscopic readings are only performed on those samples that meet specific criteria set forth by [facility].Glucose Ql (U) NegativeNormalNegativemg/dLFT UA Auto SSHemoglobin Auto test strip (U) [Mass/Vol]NegativeNormalNegativemg/dLFT UA Auto SSKetones Auto test strip Ql (U)NegativeNormalNegativemg/dLPARKSIDE PSYCH[facility]ATRIC [facility] UA Auto SSLeukocyte esterase Auto test strip Ql (U)NegativeNormalNegativeLeu/uLPARKSIDE PSYCHIATRIC [facility] UA Auto SSNitrite Auto test strip Ql (U) NegativeNormalNegativemg/dLPARKSIDE PSYCHIATRIC [facility] UA Auto SSpH (U)7.5 *NA* (06/21/23 2:35 PM)Invalid Interpretation Code5.0 - 9.0[facility] UA Auto SSProtein Ql (U)NegativeNormalNegativemg/dLPARKSIDE PSYCH[facility]ATRIC [facility] UA Auto SSSpecific gravity (U) [Rel density] 1.010 *NA* (06/21/23 2:35 PM)Invalid Interpretation Code1.005 - 1.030[facility] UA Auto SS Urobilinogen (U) [Mass/Vol]NegativeNormalNegativemg/dLPARKSIDE PSYCHIATRIC [facility] UA Auto SSURINALYSIS Ordered By: Debbie Urrutia on 13-15-1883WJ Spec DescClean Catch (06/21/23 2:35 PM)NormalPARKSIDE PSYCHIATRIC [facility] UA Auto SS xr Chest Single Viewon 15-63-9712MQ Chest Single View NormalAvita Health System Bucyrus HospitaleGFRon 17-79-8903fDVV64 mL/min/1.73 g9Krlvjl >=59[facility] HospitalComment on above:Order Comment: Order added by Discern Expert.Performed By: #### [id number], 75247343, 5165862, 37427997, [id number] ####Enrrique [facility] [address] [place] [address] Ishmael Lau 37-41-4466optVTOYUmgwrb [Mass/Vol]24.4 microgram/mLInvalid Interpretation Code10.0-40.0[facility] HospitalComment on above:Result Comment: Performed at: [facility] [address] [id number] MD Ernie Parsonformed By: #### [id number] ####Enrrique [facility] [address] [place], [place] [address]BZBzz 06-18-2023 Anion gap [Moles/Vol]9 mmol/LNormal6-16[facility] HospitalComment on above:Performed By: #### 3378937, 11137228, 7320012, 78621614, 81315470, 1124747 ####[facility] [address] [place] [address] Calcium [Mass/Vol]9.3 mg/dLNormal8.9-11.1Fisher [facility] Hospital Of BaltimoreComment on above:Performed By: #### 4067117, 57391959, 6740501, 03450431, 07260177, 5869567 ####[place]una [address] [address] Chloride [Moles/Vol]97 mmol/JWva002-043VgejsvAvita Health System Bucyrus HospitalComment on above:Performed By: #### 4056037, 62289633, 4237656, 90854112, 49741640, 9818735 ####[place]una [address] [address] [Moles/Vol]30 mmol/RWrjbnv75-46EiayvfAvita Health System Bucyrus HospitalComment on above: Performed By: #### 2866212, 31912972, 7064910, 36521586, 37548276, 8286626 ####[place] [address] [address] Creatinine [Mass/Vol]0.8 mg/dLNormal0.5-1.3Fisher [facility] Hospital Of BaltimoreComment on above:Performed By: #### 7329854, 92901873, 6790045, 28330291, 07159730, 8649598 ####[place]an [place] [address] [place], [place] [address]Gmqpafh [Mass/Vol]80 mg/hFWlmvbr53-026AfofmfAvita Health System Bucyrus HospitalComment on above:Performed By: #### 2960781, 31785849, 4867536, 55219898, 83134784, 7951463 ####[place] [address] [address]Xbuwrceft [Moles/Vol]3.8 mmol/LNormal3.5-5.3Fisher Sinai [facility] Comment on above:Performed By: #### 2764251, 37585148, 5242862, 14932228, 54252524, 2621521 ####[facility] [address] [place], [place] [address]Bosvte [Moles/Vol]132 mmol/ODrq997-550LxibbsAvita Health System Bucyrus HospitalComment on above:Performed By: #### 9665205, 81959425, 6807427, 37289479, 34712776, 8510097 ####Enr[address] [facility] M[address]yhg[address] [place], [place] [address]Jsjv nitrogen [Mass/Vol]17 mg/dLNormal5-21[facility] Bucy[facility] HospitalComment on above:Performed By: #### 1693138, 50896336, 5415951, 87426926, 76056404, 2713254 ####Enrrique [address] [address]Bdfv nitrogen/Creatinine [Mass ratio]21 No Units Agwl73-79JwvvjeAvita Health System Bucyrus HospitalComment on above:Performed By: #### 8979542, 59814834, 4520862, 37911813, 81457680, 6893447 ####Osuna [address] [address]RQW w/ Auto Diffon 06-18-2023 Basophils/100 WBC (Bld)0.6 %Normal0.0-2.0[facility] Bucyrus HospitalComment on above:Performed By: #### 8539861, 51571497, 6917192, 57475441, 23937203, 2098338 ####[place] [address] [place] [address] Basophils/Leukocytes Auto (Bld) [Pure # fraction]0.0 E9/LNormal0.0-0.2[facility] BaltimoreComment on above:Performed By: #### 9479130, 96157671, 3485859, 92855482, 16920640, 3892333 ####[address] [address]Jiclxlibcem (Bld) [#/Vol]0.1 E9/L Normal0.0-0.5FWright-Patterson Medical CenterComment on above:Performed By: #### 6640445, 89519153, 3984729, 99713476, 09115132, 7518384 ####[address] [address]Xqdnhtyiewm/100 WBC (Bld)2.3 % Normal0.0-8.0[facility] Bucy[facility] HospitalComment on above:Performed By: #### 6417479, 24893550, 7159683, 19274453, 47393340, 3810286 ####[address] [address]Bvsstohaegi distribution width (RBC) [Ratio]13.9 %Vfscuo25.9-14.2FWright-Patterson Medical CenterComment on above: Performed By: #### 6655187, 74489394, 3667953, 88870658, 86508989, 1514058 ####[address] [address] Hematocrit (Bld) [Volume fraction]34.8 %Rfgzhn97.0-46.0[facility] HospitalComment on above:Performed By: #### 7478540, 24244550, 0211418, 51954919, 63419737, 3307921 ####[address] [address]Tnravzsgup (Bld) [Mass/Vol]11.9 g/dLLow12.0-16.0[facility] HospitalComment on above:Performed By: #### 7243828, 68476834, 3182243, 89798768, 43802438, 7138619 ####[address] [address]Fqtnxquyohc (Bld) [#/Vol]1.2 E9/LNormal1.0-4.0 [facility] HospitalComment on above:Performed By: #### 0835222, 79407240, 0934472, 93528333, 76538827, 0546461 ####[address] [address]Yntjtbwtknh/100 WBC (Bld)20.6 %Normal 14.0-50.0[facility] HospitalComment on above:Performed By: #### 9156538, 38377511, 1367992, 84057339, 09006437, 3894353 ####[address] [address]UEU (RBC) [Entitic mass]30.4 pgNormal 27.0-34.0[facility] HospitalComment on above:Performed By: #### 2643906, 33609499, 9488158, 32774258, 29635560, 9963933 ####[address] [address]QOOK (RBC) [Mass/Vol]34.1 g/dLNormal 31.4-36.0[facility] HospitalComment on above:Performed By: #### 5487253, 02679056, 4130336, 59835708, 07685376, 6999692 ####[address] [address]ZDN (RBC) [Entitic vol]89.0 fLNormal 80.0-100.0[facility] HospitalComment on above:Performed By: #### 5544394, 15485579, 9039262, 75404673, 65679004, 8549852 ####[address] [address]Vhbgkdlcv (Bld) [#/Vol]0.6 E9/LNormal0.2-1.0[facility] HospitalComment on above:Performed By: #### 1708267, 56058087, 7678878, 59406669, 65112033, 9351631 ####Enrrique [address] [address]Ajvduzxwghx (Bld) [#/Vol]4.0 E9/LNormal2.0-7.5FWright-Patterson Medical CenterComment on above:Performed By: #### 9360209, 27169374, 6582729, 35899122, 28241795, 7075228 ####Enrrique [address] [address]Tieqazdzfee/100 WBC (Bld)67.3 %Tinvwq48.0-75.0[facility] HospitalComment on above:Performed By: #### 9905781, 34277504, 8436365, 68498144, 73041968, 0681048 ####Osuna [address] [address]Njoowqyl793.0 E9/LNormal 150.0-500.0[facility] HospitalComment on above:Performed By: #### 9294901, 80500224, 2286826, 80983294, 22933566, 9171045 ####Osuna [address] [address]Qhhgyfif mean volume (Bld) [Entitic vol]6.9 fLNormal6.4-10.8[facility] HospitalComment on above: Performed By: #### 6503888, 61008576, 6923164, 87061761, 77866201, 2249574 ####Osuna [address] [address]DLH (Bld) [#/Vol]3.9 E12/LLow4.3-5.9[facility] HospitalComment on above: Performed By: #### 9103068, 22358459, 8706452, 73595619, 53660778, 4887704 ####Osuna [address] [address]WEK corrected for nucl RBC Auto (Bld) [#/Vol]6.0 E9/LNormal4.0-11.0[facility] HospitalComment on above:Performed By: #### 5542405, 15173201, 6667894, 66661490, 16127056, 8694947 ####[facility] [address] [place], [place] [address]ZQLHZQNFCBvxdqqv By: SYSTEM SYSTEM on 06-18-2023 Anion gap [Moles/Vol]9 mmol/LNormal6 - 16 mEq/LRemisol ChemCalcium [Mass/Vol]9.3 mg/dLNormal8.9 - 11.1 mg/dLRemisol ChemChloride [Moles/Vol]97 mmol/HOlg379 - 111 mmol/LRemisol ChemCO2 [Moles/Vol]30 mmol/HOiozsj93 - 31 mmol/LRemisol Chem Creatinine [Mass/Vol]0.8 mg/dLNormal0.5 - 1.3 mg/dLRemisol EohsiMLG25 mL/min/1.73 f9Rmqjto>=59mL/min/1.73 g6Vzicuvy ChemGlucose [Mass/Vol]80 mg/dL Zndaxe66 - 199 mg/dLRemisol ChemMagnesium [Mass/Vol]1.9 mg/dLNormal1.3 - 2.4 mg/dLRemisol ChemPotassium [Moles/Vol]3.8 mmol/LNormal3.5 - 5.3 mmol/LRemisol ChemSodium [Moles/Vol]132 mmol/MTdl879 - 145 mmol/LRemisol ChemTroponin4.70 pg/mLLow10.10 - 27.10 pg/mLRemisol ChemComment on above:Interpretive Data: The 95% CI (Confidence Interval) PPV (Positive Predictive Value) for myocardial i nfarction in females is 38 pg/mL, in males 51 pg/mL. The results should be used in conjunction withclinical conditions of myocardial infarction. (Access High Sensitivity Troponin I Instructions For Use, [facility], October 2017)Urea nitrogen [Mass/Vol]17 mg/dLNormal5 - 21 mg/dLRemisol ChemUrea nitrogen/Creatinine [Mass ratio]21 mg/dnAjmv50 - 20Remisol ChemCNPNon 06-18-2023 CNPNTelephone (NE50MN) CARLY MARCELINO ([id number]) 1940 F [place] Date Time Provider Department [...] Signed Patient has been informed by her transport conductor that Keppra has caused many problems. Patient cannot continue Keppra. Please call her [phone] (home). See 06/18/23 encounter. Jalyn Unger 06/20/2023 8:59 AM Signed nurse todd Alonzo/ Dr. Mckenzie office, PCP says pt's Mouth, legs hurt, overall feels lousy; has high blood pressure; please call back [phone] opt 4. Pedro Alcala, CARLOS 06/20/2023 11:32 [...] with patient tomorrow and patient agreed. CARLOS Lin Kelli, APRN.CNP 06/21/2023 8:49 AM Signed I would not [...] beneficial to repeat EEG to further assess. CHRIS Leon Kelli, APRN.CNP 06/21/2023 3:[address] Lilly [...] abnormal electroencephalogram (EEG) [R94.01] Order(s):EPIL EEG LONG [0221286] Order #: [id number]: 1 FUTURE Prescriptions as of 06/21/2023 - levETIRAcetam XR (KEPPRA XR) 500 mg 24 hr tablet Take 1 tablet by mouth daily at bedtime. - albuterol HFA (PROVENTIL HFA, VENTOLIN HFA) 90 mcg/actuation inhaler Inhale 2 Puffs as instructed every 4 hours as needed. - ALPRAZolam (XANAX) 0.25 mg tablet Take 1 tablet by mouth every 12 hours. - (more content not included)...NormalMercy Health Lorain HospitalCNPNTelephone (NECVS8) CARLY MARCELINO ([id number]) 1940 F Date Time Provider Department 06/18/23 NEUROLOGY PROVIDER [...] Marcelino, 1940). 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 Patient states the keppra makes her blood pressure spike, patient states her PCP is not in and the MANUFACTURERS REPRESENTATIVE that is covering she can't get in [...] none Pharmacy: [facility] Thank you calling [facility]. You will receive a return call within 48 hours ( or 2 business days if close to the weekend). If you feel that this is an urgent issue and needs immediate attention, it is recommended that you contact your primary care provider office or proceed to your nearest Urgent Care Center of Emergency Room ED for evaluation/treatment. 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 Patient states her PCP is out of the office and MANUFACTURERS REPRESENTATIVE is not available. Advised to go to local ED for evaluation. Patient agreed to plan. Will notify Dr Gracia's team Tiff Whelan, CARLOS 06/19/2023 9:48 AM Signed Called patient in [...] info for return call. Tiff Whelan RN [facility] 06/19/2023 3:11 PM Signed Patient states she [...] Patient states she went to see her Bridal Gown Fitter today in [place]. Allergies As of Date: 06/18/2023 Noted Allergy [...] pressure is high Prescrip (more content not included)...NormalMercy Health Lorain Hospital COAGULATIONOrdered By: Sade Emmanuel on 89-95-1474fOGM Coag (PPP) [Time]33.6 sNormal 25.1 - 36.5 second(s)[facility] Auto CoagComment on above:Interpretive Data: Parameter 15 days - 4 weeks 1 - [...] the same coagulation reagent and instrumentation as [facility]. Currently there are no coagulation studies available worldwide for children to 14 days, andno normal ranges. Heparin therapeutic range (represented by Anti-Factor Xa activity of 0.2 - 0.4 U/mL) corresponds to PTT of 56.6 - 109.0 sec.INR Coag (PPP) [Relative time]0.95 {INR}Invalid Interpretation CodePARKSIDE PSYCHIATRIC [facility] [place] Auto CoagComment on above:Interpretive Data: INR results are specifically intended to assess patients stabilized on long-term Anticoagulation therapy suggested INR s Less Intensive Anticoagulation 2.0 3.0 Conventional Range 3.0 4.5PT Coag (PPP) [Time]10.6 sNormal9.4 - 12.5 second(s) [facility] Auto CoagComment on above:Interpretive Data: 15 days - 4 weeks 1 - [...] the same coagulation reagent and instrumentation as [facility]. Currently there are no coagulation studies available worldwide for children to 14 days, andno normal ranges.CT Head or Brain w/o Contraston 22-15-1208EQ Head or Brain w/o ContrastHolzer Medical Center – JacksonConsent for Treatmenton 06-18-2023 Consent for [id number]#1.00TIFWilson Memorial HospitalDischarge Instructionson 27-31-3617Cnzwqfryx [id number]#1.00TIFMercy Health Lorain Hospital Clinical Summaryon 10-48-6091FX Clinical SummaryNoTriHealth Note-Physicianon 96-09-0715HJ Note-PhysicianHolzer Medical Center – JacksonComment on above:Result Comment: Electronically Signed By: Luis E Wen PA-C\.br\Date and Time Signed: 06/17/2414:52 EDT\.br\Electronically Co-Signed By: Reshma Ramirez M.D.\.br\Date and Time Co-Signed: 06/18/23 16:37 EDTED Patient Education Noteon 47-06-6550ML Patient Education NoteNoTriHealth Patient Summaryon 49-40-3806YP Patient SummaryNoBerger HospitalHEMATOLOGYOrdered By: SYSTEM SYSTEM on 48-06-5268Phsfegoon/100 WBC (Bld)0.6 %Normal0.0 - 2.0 %Remisol Heme Basophils/Leukocytes Auto (Bld) [Pure # fraction]0.0 E9/LNormal0.0 - 0.2 E9/L Remisol HemeEosinophils (Bld) [#/Vol]0.1 E9/LNormal0.0 - 0.5 E9/LRemisol Heme Eosinophils/100 WBC (Bld)2.3 %Normal0.0 - 8.0 %Remisol HemeErythrocyte distribution width (RBC) [Ratio]13.9 %Uycyqc15.9 - 14.2 %Remisol HemeHematocrit (Bld) [Volume fraction]34.8 %Lnngqs98.0 - 46.0 %Remisol HemeHemoglobin (Bld) [Mass/Vol]11.9 g/dLLow12.0 - 16.0 gm/dLRemisol HemeLymphocytes (Bld) [#/Vol]1.2 E9/LNormal1.0 - 4.0 E9/LRemisol HemeLymphocytes/100 WBC (Bld)20.6 %Gubwpj36.0 - 50.0 %Remisol HemeMCH (RBC) [Entitic mass]30.4 zjUifqof51.0 - 34.0 pgRemisol HemeMCHC (RBC) [Mass/Vol]34.1 g/yTVzctpx25.4 - 36.0 gm/dLRemisol HemeMCV (RBC) [Entitic vol]89.0 dKYcupmu26.0 - 100.0 fLRemisol HemeMonocytes (Bld) [#/Vol]0.6 E9/LNormal0.2 - 1.0 E9/LRemisol HemeMonocytes/100 WBC (Bld)9.2 %Normal4.0 - 14.0 %Remisol HemeNeutrophils (Bld) [#/Vol]4.0 E9/LNormal2.0 - 7.5 E9/LRemisol Heme Neutrophils/100 WBC (Bld)67.3 %Bulcuw54.0 - 75.0 %Remisol FnziUvukjcym065.0 E9/L Fsqkbw996.0 - 500.0 E9/LRemisol HemePlatelet mean volume (Bld) [Entitic vol]6.9 fLNormal6.4 - 10.8 fLRemisol HemeRBC (Bld) [#/Vol]3.9 E12/LLow4.3 - 5.9 E12/L Remisol HemeWBC corrected for nucl RBC Auto (Bld) [#/Vol]6.0 E9/LNormal4.0 - 11.0 E9/LRemisol HemeMagnesiumon 63-91-5664Xhxstwgxy [Mass/Vol]1.9 mg/dLNormal 1.3-2.4FWright-Patterson Medical CenterComment on above:Performed By: #### 6623892, 32396423, 6423662, 51455533, 71027999, 5384021 ####Enr[address] [facility] [address] [place], [place] [address]BA & PTTon 36-38-7337gZMU Coag (PPP) [Time]33.6 second(s)Skzfbh02.1-36.5FWright-Patterson Medical CenterComment on above: Result Comment: Parameter 15 days - 4 weeks 1 - 5 months 6 - 11 months 1 - 5 years 6 - 10 years 11 - 17 years PTT Mean: 35.4 (27.6-45.6) Mean: 33.5 (24.8- 40.7) Mean: 32.4 (25.1-40.7) Mean: 31.6 (24.0-39.2) Mean: 31.6 (26.9-38.7) Mean: 31.0 (24.6-38.4) Pediatric Reference ranges were obtained from astudy by Dharmesh Marin et al. prepared from 1437 samples obtained at 7 different centers using VivaSmart coagulation reagent and instrumentation as [facility]. Currently there are no coagulation studies available worldwide for children to 14 days, and no normal ranges. Heparin therapeutic range (represented by Anti-Factor Xa activity of 0.2 - 0.4 U/mL) corresponds to PTT of 56.6 - 109.0 sec.Performed By: #### 3167092, 26066158, 8959026, 60441655, 88501541, 1833429 ####[facility] [address] [place], [place] [address]VDP Coag (PPP) [Relative time] 0.95 {INR}Invalid Interpretation CodeFishKennedy Krieger InstituteComment on above:Result Comment: INR results are specifically intended to assess patients stabilized on long-term Anticoagulation therapy suggested INR?s ?Less Intensive Anticoagulation? 2.0 ? 3.0Conventional Range 3.0 ? 4.5Performed By: #### 3727806, 98819948, 8142723, 02517581, 34333851, 6231455 ####[facility] [address] [place], [place] [address]UC Coag (PPP) [Time]10.6 second(s)Normal9.4-12.5FWright-Patterson Medical CenterComment on above:Result Comment: 15 days - 4 weeks 1 - 5 months 6 -11 months 1-5 years 6-10 years 11 -17 years Mean:11.2 (9.5-12.6) Mean: 11.0 (9.7-12.8) Mean: 11.0 (9.8-13.0) Mean: 11.3 (9.9-13.4) Mean: 11.7 (10.0-14.6) Mean: 11.8 (10.0 - 14.1) Pediatric Reference ranges were obtained from a study by Dharmesh Marin et al. prepared from 1437 samples obtained at 7 different centers using the same coagulation reagent and instrumentation as [facility]. Currently there are no coagulation studies available worldwide for children to 14 days, and no normal ranges. Performed By: #### 0004724, 46294937, 7013697, 63066934, 92706384, 4048720 ####[facility] [facility] [address] [place] [address] Troponin 0 Hr.on 56-74-8222Xrrkisol6.70 pg/mLLow10.10-27.10[facility] Bucyrus HospitalComment on above:Result Comment: The 95% CI (Confidence Interval) PPV (Positive Predictive Value) for myocardial infarction in females is 38 pg/mL, in males 51 pg/mL. The results should be used in conjunction with clinical conditions of myocardial infarction.(Access High Sensitivity Troponin I Instructions For Use,[facility], October 2017)Performed By: #### 8373234, 43596748, 0471702, 63044244, 47703952, 9132606 ####[facility] [address] [place], [place] [address]KG Chest Single Viewon 06-59-9433BB Chest Single ViewNormalAvita Health System Bucyrus HospitalXR Chest Single ViewNormal [facility] Bucy[facility] HospitaleGFRon 09-76-0727rNKA91 mL/min/1.73 c4Ytxoxu>=59 [facility]cy[facility] HospitalComment on above:Order Comment: Order added by Discern Expert.Performed By: #### 7452095, 15501109, 6732397, 95730010, 88307383, 9445806 ####[address] [facility] [address] [place], [place] [address]Pvaqqbj for Treatmenton 75-69-9103Yftllgv for Treatment [id number]#1.00TIFUniversity Hospitals Conneaut Medical CenterDischarge Instructionson 06-08-6883Jenrzavmn Instructions [id number]#1.00TIFMercy Health Lor[facility] Hospital Clinical Summaryon 39-11-4471RU Clinical SummaryNoTriHealth Note-Physicianon 68-49-1059DU Note-PhysicianHolzer Medical Center – JacksonComment on above:Result Comment: Electronically Signed By: Ashley Mera, Reshma Jung\.br\Date and Time Signed: 06/16/2416:58 EDTED Patient Education Noteon 08-27-4940WG Patient Education NoteNoTriHealth Patient Summaryon 51-63-5686WD Patient SummaryNoBerger Hospital BMPon 30-80-4414Nsrxd gap [Moles/Vol]10 mmol/LNormal6-16[facility] HospitalComment on above:Performed By: #### 04281292, 2435477, 48666570, 32010285, 8294371, 75430590 ####[facility] [address] [place], [place] [address]Xomsbvt [Mass/Vol]9.6 mg/dLNormal8.9-11.1FWright-Patterson Medical CenterComment on above:Performed By: #### 66364659, 2982578, 09919206, 07035727, 2539463, 23983333 ####[facility] [address] [place], [place] [address]Liyiwgil [Moles/Vol]98 mmol/XHpu161-616JycgewAvita Health System Bucyrus HospitalComment on above:Performed By: #### 11269167, 1220151, 83289189, 34282271, 5847412, 02035121 ####[facility] [address] [place], [place] [address]XH0 [Moles/Vol]28 mmol/PBwaybu46-45BfcmrfAvita Health System Bucyrus HospitalComment on above:Performed By: #### 83329890, 7109344, 97735771, 92295266, 4556369, 16716925 ####[facility] [address] [place] [address]Rwailyykol [Mass/Vol]1.1 mg/dLNormal0.5-1.3FWright-Patterson Medical CenterComment on above:Performed By: #### 66111179, 3581204, 93734997, 58380027, 9198393, 27208193 ####[facility] [address] [place] [address]Rocmvux [Mass/Vol]94 mg/dLNormal 55-199Av[facility] Bucyrus HospitalComment on above:Performed By: #### 57080026, 1953504, 49448672, 58736583, 0191439, 01987898 ####[address] [address]Odojrhwwe [Moles/Vol]4.0 mmol/LNormal 3.5-5.3FWright-Patterson Medical CenterComment on above:Performed By: #### 46151842, 0586195, 05894669, 60469076, 9917665, 99116782 ####[facility] [address] [place], [place] [address]Qpcicz [Moles/Vol]132 mmol/LLow 135-145Av[facility] Bucyrus HospitalComment on above:Performed By: #### 86422285, 8774216, 81008026, 24145378, 2770914, 85668508 ####[facility] [address] [place], [place] [address]Uscc nitrogen [Mass/Vol]28 mg/dLHigh 5-21[facility] HospitalComment on above:Performed By: #### 22020428, 1734625, 32313360, 68294758, 1562573, 36639913 ####[facility] [address] [place] [address]Dczk nitrogen/Creatinine [Mass ratio] 26 No LurbaWbhk26-53YrlsclAvita Health System Bucyrus HospitalComment on above:Performed By: #### 87299337, 3275919, 76978970, 15858352, 6237979, 46481660 ####[address] [address]VRRfg 99-64-4792Igp Ctr BNPPassNormalAvita Health System Bucyrus HospitalComment on above:Performed By: #### 07345831, 2304134, 16048204, 40851327, 1877133, 79910033 ####[address] [address]Ppmmlmdbcfj peptide B (Bld) [Mass/Vol]48 pg/mLNormal5-80[facility] HospitalComment on above: Performed By: #### 25390295, 4672951, 90015979, 77428511, 2247877, 65572117 ####[address] [address]UQY w/ Auto Diffon 11-74-5260Fwrtlrsph/100 WBC (Bld)0.8 %Normal0.0-2.0[facility] HospitalComment on above:Performed By: #### 85955625, 0904670, 00658517, 18244644, 7710336, 59722996 ####[address] [address]Llqrregfu/Leukocytes Auto (Bld) [Pure # fraction] 0.1 E9/LNormal0.0-0.2[facility] BaltimoreComment on above:Performed By: #### 17062390, 9271286, 81914076, 61813526, 6784349, 67846797 ####[address] [address]Ilgieermbsh (Bld) [#/Vol]0.2 E9/LNormal0.0-0.5FWright-Patterson Medical CenterComment on above: Performed By: #### 76008150, 6560304, 45223484, 93890715, 3909032, 96184408 ####[address] [address] Eosinophils/100 WBC (Bld)3.4 %Normal0.0-8.0[facility] HospitalComment on above:Performed By: #### 75997205, 4127122, 53445033, 77327878, 5212316, 84629148 ####[address] [address]Dsrxpywfnds distribution width (RBC) [Ratio]14.0 %Vcdimg12.9-14.2FWright-Patterson Medical CenterComment on above:Performed By: #### 85500332, 3634707, 13351589, 78663345, 2138803, 12468081 ####[address] [address]Tfsnexlwgk (Bld) [Volume fraction] 34.1 %Pcbwaz85.0-46.0[facility] HospitalComment on above:Performed By: #### 20548156, 3651055, 84099150, 84362034, 1594488, 58637435 ####[address] [address]Crzfvjauwg (Bld) [Mass/Vol]11.4 g/dLLow12.0-16.0[facility] HospitalComment on above: Performed By: #### 94800664, 6097799, 46425785, 42510599, 8403646, 37163555 ####[address] [address] Lymphocytes (Bld) [#/Vol]1.7 E9/LNormal1.0-4.0[facility] Bucy[facility] HospitalComment on above:Performed By: #### 51481701, 0637059, 36741371, 76014062, 0421111, 70308757 ####[facility] [address] [place], [place] [address]Rdqurwemtbe/100 WBC (Bld)24.8 %Vdbarl50.0-50.0[facility] Comment on above:Performed By: #### 51223624, 4152893, 88738830, 92468893, 4115999, 37476967 ####[place] [facility] [address] [place], [place] [address]BHI (RBC) [Entitic mass]29.9 sgAfgqwr69.0-34.0[facility] Bucy[facility] HospitalComment on above:Performed By: #### 46798144, 7957167, 26344343, 86156691, 4648378, 91320856 ####[place] [facility] [address] [place], [place] [address]PVUW (RBC) [Mass/Vol]33.6 g/pZVncmtz70.4-36.0[facility] HospitalComment on above:Performed By: #### 67570819, 0896972, 10406712, 43981030, 5979338, 99943792 ####Osuna [address] [address]YRP (RBC) [Entitic vol]88.9 fLNormal 80.0-100.0[facility] Bucyrus HospitalComment on above:Performed By: #### 49768808, 2091187, 96338439, 45118615, 1391326, 44750409 ####Enrrique [facility] [address] [place], [place] [address]Wmlyihwns (Bld) [#/Vol]0.7 E9/LNormal0.2-1.0[facility]cy[facility] HospitalComment on above: Performed By: #### 79631393, 1417845, 60611216, 93383810, 2650200, 67028377 ####[address] [address] Neutrophils (Bld) [#/Vol]4.2 E9/LNormal2.0-7.5FWright-Patterson Medical CenterComment on above:Performed By: #### 96402385, 6227119, 99985475, 27484773, 5722799, 16760638 ####[address] [address]Ccbpyuqjmlg/100 WBC (Bld)60.8 %Rxtvks36.0-75.0[facility] Comment on above:Performed By: #### [id number], 7473739, 65334574, [id number], 9247437, [id number] ####[address] [address]Udxluqic916.0 E9/AMuhvtj236.0-500.0[facility] HospitalComment on above:Performed By: #### [id number], 7497406, 43624741, 54410887, 8464751, [id number] ####[address] [address]Rhoaabxt mean volume (Bld) [Entitic vol]7.3 fLNormal6.4-10.8 [facility] HospitalComment on above:Performed By: #### [id number], 6267323, 19345785, 64113392, 8302446, [id number] ####[address] [address]WIC (Bld) [#/Vol]3.8 E12/LLow4.3-5.9 [facility] HospitalComment on above:Performed By: #### [id number], 2177395, 77327170, 31339787, 5919201, [id number] ####[address] [address]PQS corrected for nucl RBC Auto (Bld) [#/Vol]6.9 E9/LNormal4.0-11.0[facility] HospitalComment on above: Performed By: #### [id number], 9093634, 27277503, 03752775, 3072922, [id number] ####[facility] [address] [place] [address] CHEMISTRYOrdered By: SYSTEM SYSTEM on [id number] pg/mLLow10.10 - 27.10 pg/mLRemisol ChemComment on above:Interpretive Data: The 95% CI (Confidence Interval) PPV (Positive Predictive Value) for myocardial infarction in females is 38 pg/mL, in males 51 pg/mL. The results should be used in conjunction withclinical conditions of myocardial infarction. (Access High Sensitivity Troponin I Instructions For Use, Raegan Saint Anthony, October 2017)Anion gap [Moles/Vol]10 mmol/LNormal6 - 16 mEq/LRemisol ChemCalcium [Mass/Vol]9.6 mg/dLNormal8.9 - 11.1 mg/dLRemisol ChemChloride [Moles/Vol]98 mmol/BDsf416 - 111 mmol/LRemisol ChemCO2 [Moles/Vol]28 mmol/YWykhln14 - 31 mmol/LRemisol ChemCreatinine [Mass/Vol]1.1 mg/dLNormal0.5 - 1.3 mg/dLRemisol BuiwnLGB24 mL/min/1.73 m2Low>=59mL/min/1.73 o4Skscsdp ChemGlucose [Mass/Vol]94 mg/eBUkpdrs48 - 199 mg/dLRemisol ChemPotassium [Moles/Vol]4.0 mmol/LNormal3.5 - 5.3 mmol/LRemisol ChemSodium [Moles/Vol]132 mmol/TGfw320 - 145 mmol/LRemisol ChemTroponin6.70 pg/mLLow10.10 - 27.10 pg/mLRemisol ChemComment on above: Interpretive Data: The 95% CI (Confidence Interval) PPV (Positive Predictive Value) for myocardial infarction in females is 38 pg/mL, in males 51 pg/mL. The results should be used in conjunction withclinical conditions of myocardial infarction. (Access High Sensitivity Troponin I Instructions For Use, Raegan Saint Anthony, October 2017)Urea nitrogen [Mass/Vol]28 mg/dLHigh5 - 21 mg/dLRemisol ChemUrea nitrogen/Creatinine [Mass ratio]26 mg/ffIbet76 - 20Remisol ChemCHEMISTRYOrdered By: Paul Mendez on 58-77-1913Wlgfzrjyrej peptide B (Bld) [Mass/Vol]48 pg/mL Normal5 - 80 pg/mLPARKSIDE [facility] HemeManSSCOAGULATIONOrdered By: Paul Mendez on 37-02-9924uMLT Coag (PPP) [Time]31.8 gZdiozu55.1 - 36.5 second(s)[facility] Auto Coag Comment on above:Interpretive Data: Parameter 15 days - 4 weeks 1 - [...] the same coagulation reagent and instrumentation as [facility]. Currently there are no coagulation studies available worldwide for children to 14 days, andno normal ranges. Heparin therapeutic range (represented by Anti-Factor Xa activity of 0.2 - 0.4 U/mL) corresponds to PTT of 56.6 - 109.0 sec.INR Coag (PPP) [Relative time]0.86 {INR}Invalid Interpretation CodePARKSIDE PSYCHIATRIC [facility] [place] Auto CoagComment on above:Interpretive Data: INR results are specifically intended to assess patients stabilized on long-term Anticoagulation therapy suggested INR s Less Intensive Anticoagulation 2.0 3.0 Conventional Range 3.0 4.5PT Coag (PPP) [Time]9.6 sNormal9.4 - 12.5 second(s) [facility] Auto CoagComment on above:Interpretive Data: 15 days - 4 weeks 1 - [...] the same coagulation reagent and instrumentation as [facility]. Currently there are no coagulation studies available worldwide for children to 14 days, andno normal ranges.CT Head or Brain w/o Contraston 50-41-1486GM Head or Brain w/o ContrastHolzer Medical Center – JacksonConsent for Treatmenton 06-16-2023 Consent for [id number]#1.00TIFFNormSelect Medical [facility] [place] Clinical Summaryon 82-10-3340SS Clinical Summary [facility] Note-Physicianon 44-13-8047ZW Note-Physician [facility] – JacksonComment on above:Result Comment: Electronically Signed By: James Nguyen MD\.br\Date and Time Signed: 06/23/23 13:52 ED T\.br\Electronically Co-Signed By: Stacia Dwyer DO\.br\Date and Time Co- Signed: 06/16/23 08:56 EDTED Patient Education Noteon 85-81-7227UV Patient Education NoteNoTriHealth Patient Summaryon 45-59-6252MW Patient SummaryHolzer Medical Center – JacksonHEMATOLOGYOrdered By: SYSTEM SYSTEM on 22-14-9530Hybmvjvpt/100 WBC (Bld)0.8 %Normal0.0 - 2.0 %Remisol Heme Basophils/Leukocytes Auto (Bld) [Pure # fraction]0.1 E9/LNormal0.0 - 0.2 E9/L Remisol HemeEosinophils (Bld) [#/Vol]0.2 E9/LNormal0.0 - 0.5 E9/LRemisol Heme Eosinophils/100 WBC (Bld)3.4 %Normal0.0 - 8.0 %Remisol HemeErythrocyte distribution width (RBC) [Ratio]14.0 %Vmdhlx44.9 - 14.2 %Remisol HemeHematocrit (Bld) [Volume fraction]34.1 %Llwiep04.0 - 46.0 %Remisol HemeHemoglobin (Bld) [Mass/Vol]11.4 g/dLLow12.0 - 16.0 gm/dLRemisol HemeLymphocytes (Bld) [#/Vol]1.7 E9/LNormal1.0 - 4.0 E9/LRemisol HemeLymphocytes/100 WBC (Bld)24.8 %Bydwis48.0 - 50.0 %Remisol HemeMCH (RBC) [Entitic mass]29.9 rtQxyqwm07.0 - 34.0 pgRemisol HemeMCHC (RBC) [Mass/Vol]33.6 g/wNWplmim92.4 - 36.0 gm/dLRemisol HemeMCV (RBC) [Entitic vol]88.9 gQOqkxru48.0 - 100.0 fLRemisol HemeMonocytes (Bld) [#/Vol]0.7 E9/LNormal0.2 - 1.0 E9/LRemisol HemeMonocytes/100 WBC (Bld)10.2 %Normal4.0 - 14.0 %Remisol HemeNeutrophils (Bld) [#/Vol]4.2 E9/LNormal2.0 - 7.5 E9/LRemisol HemeNeutrophils/100 WBC (Bld)60.8 %Pxutyu14.0 - 75.0 %Remisol RgtfGoolmsdp711.0 E9/CUkpnlv938.0 - 500.0 E9/LRemisol HemePlatelet mean volume (Bld) [Entitic vol] 7.3 fLNormal6.4 - 10.8 fLRemisol HemeRBC (Bld) [#/Vol]3.8 E12/LLow4.3 - 5.9 E12/LRemisol HemeWBC corrected for nucl RBC Auto (Bld) [#/Vol]6.9 E9/LNormal4.0 - 11.0 E9/LRemisol HemeMonitor Recordon 34-00-5968Acnabjd Record [id number]#1.00TIFFNormalEnrrique Sinai Hospital Of BaltimoreMonitor [id number]#1.00TIFFNormal [facility] BaltimorePT & PTTon 44-25-5120mPAR Coag (PPP) [Time]31.8 second(s)Nzvmob39.1-36.5Fisher [facility] Hospital Of BaltimoreComment on above:Result Comment: Parameter 15 days - 4 weeks 1 - 5 months 6 - 11 months 1 - 5 years 6 - 10 years 11 - 17 years PTT Mean: 35.4 (27.6-45.6) Mean: 33.5 (24.8-40.7) Mean: 32.4 (25.1-40.7) Mean: 31.6 (24.0-39.2) Mean: 31.6 (26.9-38.7) Mean: 31.0 (24.6- 38.4) Pediatric Reference ranges were obtained from astudy by Dharmesh Marin et al. prepared from 1437 samples obtained at 7 different centers using VivaSmart coagulation reagent and instrumentation as [facility]. Currently there are no coagulation studies available worldwide for children to 14 days, and no normal ranges. Heparin therapeutic range (represented by Anti-Factor Xa activity of 0.2 - 0.4 U/mL) corresponds to PTT of 56.6 - 109.0 sec.Performed By: #### [id number], [id number], [id number], [id number], 9680527, [id number] ####[facility] [address] [place], [place] [address]JMS Coag (PPP) [Relative time]0.86 {INR}Invalid Interpretation EliasAvita Health System [facility]rus Hospital Comment on above:Result Comment: INR results are specifically intended to assess patients stabilized on long-term Anticoagulation therapy suggested INR?s ?Less Intensive Anticoagulation? 2.0 ? 3.0Conventional Range 3.0 ? 4.5Performed By: #### [id number], [id number], [id number], 69998087, 1513057, 56623901 ####[facility] [address] [place], [place] [address]RF Coag (PPP) [Time] 9.6 second(s)Normal9.4-12.5FWright-Patterson Medical CenterComment on above:Result Comment: 15 days - 4 weeks 1 - 5 months 6 -11 months 1 ? 5 years 6 ? 10 years 11 -17 years Mean: 11.2 (9.5 ? 12.6) Mean: 11.0 (9.7 ? 12.8) Mean: 11.0 (9.8 ? 13.0) Mean: 11.3 (9.9 ? 13.4) Mean:11.7 (10.0 ? 14.6) Mean: 11.8 (10.0 - 14.1) Pediatric Reference ranges were obtained from a study by Dharmesh Marin et al. prepared from 1437 samples obtained at 7 different centers using the same coa gulation reagent and instrumentation as [facility]. Currently there are no coagulation studies available worldwide for children to 14 days, and no normal ranges.Performed By: #### [id number], [id number], [id number], 05899450, 3541810, [id number] ####[facility] [address] [place], [place] [address]Umy-Mxheceo Noteon 95-94-3713Mgm-Arrival NoteNormalAvita Health System Bucyrus HospitalTroponin 0 Hr.on 52-08-2450Nbwanwwh1.70 pg/mLLow10.10-27.10[facility] HospitalComment on above:Result Comment: The 95% CI (Confidence Interval) PPV (Positive Predictive Value) for myocardial infarction in females is 38 pg/mL, in males 51 pg/mL. The results should be used in conjunction with cli nical conditions of myocardial infarction.(Access High Sensitivity Troponin I Instructions For Use,Raegan Nolan, October 2017)Performed By: #### [id number], 7108523, 22811262, 31898417, 2683873, 10100678 ####[facility] [address] [place], [place] [address]Ovzanjaz 3 Hr.on 65-67-9067Zgmeptke 6.40 pg/mLLow10.10-27.10[facility] HospitalComment on above:Result Comment: The 95% CI (Confidence Interval) PPV (Positive Predictive Value) for myocardial infarction in females is 38 pg/mL, in males 51 pg/mL. The results should be used in conjunction with clinical conditions of myocardial infarction.(Access High Sensitivity Troponin I Instructions For Use,Raegan Nolan, October 2017)Performed By: #### [id number] ####[facility] [address] [place], [place] [address]ZZ Chest Single Viewon 09-96-0283RB Chest Single ViewNormalAvita Health System Bucyrus HospitaleGFRon 89-31-4905nPXF14 mL/min/1.73 m2Low>=59[facility] HospitalComment on above:Order Comment: Order added by Discern Expert.Performed By: #### [id number], 3041711, 88196588, 32537330, 1783144, 19056401 ####[facility] [address] [place], [place] [address]HPAQki 22-64-9579QROKWyhmky Visit (NE50MN) CARLY MARCELINO ([id number]) 1940 F Date Time Provider Department 06/15/23 [...] Noé Lilly MD 06/17/2023 2:07 PM Signed [facility] Patient Name: Carly MORALES Date of : 1940 INITIAL EPILEPSY CLINIC NOTE 06/15/2023 10:00 AM CHIEF COMPLAINT: New Patient, Seizures, and Epilepsy HISTORY OF PRESENT ILLNESS Ms. Marcelino is a 82 year old right-handed female seen in [facility] for initial consultation. [...] right frontal SAH. She was transferred to [facility] for further management. No clear etiology was [...] Sleep Apnea? - Seizur (more content not included)...NormalMercy Health Lorain HospitalBMPon 31-39-2981Alciy gap [Moles/Vol]11 mmol/LNormal6-16[facility] Comment on above:Performed By: #### 1012647, 6847513, [id number] ####[facility] [address] [place], [place] [address]Fcnkord [Mass/Vol]10.0 mg/dLNormal8.9-11.1FWright-Patterson Medical CenterComment on above:Performed By: #### 9623555, 4507697, 78768433 ####[facility] [address] [place], [place] [address]Bhmswfdo [Moles/Vol]100 mmol/ZLhd948-421PxcoiaAvita Health System Bucyrus HospitalComment on above:Performed By: #### 7497685, 1836226, 12493304 ####[address] [address]JX9 [Moles/Vol]31 mmol/OTzoihk12-97VuszuqAvita Health System Bucyrus HospitalComment on above:Performed By: #### 5619258, 3245086, 46557677 ####[address] [address]Tcootshehe [Mass/Vol]0.8 mg/dL Normal0.5-1.3FWright-Patterson Medical CenterComment on above:Performed By: #### 3444348, 7560936, 71960745 ####[address] [address]Ilaweel [Mass/Vol]87 mg/xTGjwzfq19-052LqsdwqAvita Health System Bucyrus HospitalComment on above:Performed By: #### 8464585, 9688640, 71688030 ####[address] [address] Potassium [Moles/Vol]3.7 mmol/LNormal3.5-5.3FWright-Patterson Medical CenterComment on above:Performed By: #### 7044603, 9617046, 15891059 ####[address] [place], [place] [address]Soizdk [Moles/Vol]138 mmol/L Fnihbn483-582ZqlalbAvita Health System Bucyrus HospitalComment on above:Performed By: #### 6161662, 3399190, 69490062 ####[address] [address]Pcsu nitrogen [Mass/Vol]18 mg/dLNormal5-21[facility] HospitalComment on above:Performed By: #### 6425838, 4134939, 82666901 ####[address] [address]Cyuh nitrogen/Creatinine [Mass ratio]22 No FznryTteo09-97KaortkAvita Health System Bucyrus HospitalComment on above:Performed By: #### 6244468, 2781438, 84081039 ####[address] [address]QCS w/ Auto Diffon 81-45-6186Ytpeqnlvs/100 WBC (Bld)0.7 %Normal0.0-2.0[facility] HospitalComment on above:Performed By: #### 1041119, 7941001, 82811227 ####[address] [address] Basophils/Leukocytes Auto (Bld) [Pure # fraction]0.0 E9/LNormal0.0-0.2FWright-Patterson Medical CenterComment on above:Performed By: #### 7366303, 9452716, 25929293 ####[address] [address]Nmmawtvojff (Bld) [#/Vol]0.2 E9/LNormal0.0-0.5FWright-Patterson [facility] Center Comment on above:Performed By: #### 0803142, 8619860, 91928108 ####[address] [address]Sdonodtuvxn/100 WBC (Bld)3.3 %Normal0.0-8.0[facility] HospitalComment on above:Performed By: #### 0361020, 9506613, 28894409 ####[address] [address]Eytyoppyyve distribution width (RBC) [Ratio]14.0 % Igiapn94.9-14.2FWright-Patterson Medical CenterComment on above:Performed By: #### 0310077, 9351401, 09441799 ####[address] [address]Hmcphflpsq (Bld) [Volume fraction]37.6 %Normal 34.0-46.0[facility] Bucyrus HospitalComment on above:Performed By: #### 2569042, 2400899, 63411350 ####[address] [address]Qxcqleoxcf (Bld) [Mass/Vol]12.7 g/lUPihqcc90.0-16.0[facility] HospitalComment on above:Performed By: #### 0867616, 0948314, 47059212 ####[address] [address]Nsuvnkribeu (Bld) [#/Vol]1.8 E9/LNormal1.0-4.0[facility] Comment on above:Performed By: #### 5390668, 7133374, 38190057 ####[address] [address]Uufzrkggpcr/100 WBC (Bld)28.2 %Dcyuac58.0-50.0[facility] HospitalComment on above:Performed By: #### 9723958, 0824366, 61723566 ####[address] [address]KIZ (RBC) [Entitic mass]30.1 pgNormal 27.0-34.0[facility] HospitalComment on above:Performed By: #### 2087593, 0746884, 13578390 ####[address] [address]XEJD (RBC) [Mass/Vol]33.7 g/gXOdxwzb65.4-36.0[facility] HospitalComment on above:Performed By: #### 1567867, 7509692, 88325609 ####[address] [address]WBA (RBC) [Entitic vol]89.4 vHWdfwqs42.0-100.0[facility] HospitalComment on above:Performed By: #### 9312181, 5230996, 17559096 ####[address] [address]Bfkzbuuxb (Bld) [#/Vol]0.6 E9/LNormal0.2-1.0[facility] HospitalComment on above:Performed By: #### 3385181, 0270212, 81083991 ####[address] [address]Wsigzwlihaf (Bld) [#/Vol]3.7 E9/LNormal2.0-7.5 [facility] HospitalComment on above:Performed By: #### 9740478, 3882723, 01981724 ####[address] [address]Pktaxwrnufr/100 WBC (Bld)59.1 %Dcybxl71.0-75.0[facility] Comment on above:Performed By: #### 9041830, 7439192, 82388408 ####[address] [address]Bnnrrjtx mean volume (Bld) [Entitic vol]7.2 fLNormal6.4-10.8[facility] HospitalComment on above:Performed By: #### 3722752, 1513699, 47477531 ####[address] [address]Nxgwxwtpp (Bld) [#/Vol]194.0 E9/AAbwtiv568.0-500.0[facility] HospitalComment on above:Performed By: #### 5360158, 3024576, 69153170 ####[address] [address]ELD (Bld) [#/Vol]4.2 E12/LLow4.3-5.9[facility] HospitalComment on above:Performed By: #### 8083441, 2264752, 85403906 ####[facility] [address] [place], [place] [address]GVT corrected for nucl RBC Auto (Bld) [#/Vol]6.3 E9/LNormal4.0-11.0[facility] HospitalComment on above:Performed By: #### 6668159, 3134746, 34186344 ####[facility] [address] [place] [address] CHEMISTRYOrdered By: SYSTEM SYSTEM on 77-87-3364Ofocz gap [Moles/Vol]11 mmol/L Normal6 - 16 mEq/LRemisol ChemCalcium [Mass/Vol]10.0 mg/dLNormal8.9 - 11.1 mg/dL Remisol ChemChloride [Moles/Vol]100 mmol/VYbw691 - 111 mmol/LRemisol ChemCO2 [Moles/Vol]31 mmol/YEbunba19 - 31 mmol/LRemisol ChemCreatinine [Mass/Vol]0.8 mg/dLNormal0.5 - 1.3 mg/dLRemisol JvkfuEWU11 mL/min/1.73 w3Esynzu>=59mL/min/1.73 p1Qvfbotx ChemGlucose [Mass/Vol]87 mg/jPFppnfr78 - 199 mg/dLRemisol Chem Potassium [Moles/Vol]3.7 mmol/LNormal3.5 - 5.3 mmol/LRemisol ChemSodium [Moles/Vol]138 mmol/HYmnnoz475 - 145 mmol/LRemisol ChemUrea nitrogen [Mass/Vol] 18 mg/dLNormal5 - 21 mg/dLRemisol ChemUrea nitrogen/Creatinine [Mass ratio]22 mg/wdKhrs13 - 20Remisol ChemConsent for Treatmenton 86-55-1466Seraegx for Dbqvsaroe974..[id number]#1.00TIFFNormalAvita Health System Bucyrus HospitalDischarge Instructionson 72-29-8838Wsqeouayg Instructions [id number]#1.00TIFFNoFlower Hospital CenterED Clinical Summaryon 76-80-8780MF Clinical SummaryNormKettering Health Behavioral Medical Center CenterED Note-Physicianon 47-36-6076FL Note-PhysicianHolzer Medical Center – JacksonComment on above:Result Comment: Electronically Signed By: Do Montez DO\Date and Time Signed: 06/14/23 06:57 EDTED Patient Education Noteon 92-15-0060AM Patient Education NoteNormVencor Hospital Medical CenterED Patient Summaryon 07-35-5258SM Patient SummaryNoBerger Hospital EMS Documentationon 64-17-1717YWW DocumentationPlease click on link to see reportNoBerger HospitalComment on above:Result Comment: Missing Attachment - total size limit for all attachments exceeded [email or web address].pdf Can be viewed in source systemHEMATOLOGYOrdered By: Hebert Begum on 74-14-9465Pabsppmru/100 WBC (Bld)0.7 %Normal0.0 - 2.0 %Remisol Heme Basophils/Leukocytes Auto (Bld) [Pure # fraction]0.0 E9/LNormal0.0 - 0.2 E9/L Remisol HemeEosinophils (Bld) [#/Vol]0.2 E9/LNormal0.0 - 0.5 E9/LRemisol Heme Eosinophils/100 WBC (Bld)3.3 %Normal0.0 - 8.0 %Remisol HemeErythrocyte distribution width (RBC) [Ratio]14.0 %Oyijje69.9 - 14.2 %Remisol HemeHematocrit (Bld) [Volume fraction]37.6 %Jnrsad76.0 - 46.0 %Remisol HemeHemoglobin (Bld) [Mass/Vol]12.7 g/gIAjgltk45.0 - 16.0 gm/dLRemisol HemeLymphocytes (Bld) [#/Vol] 1.8 E9/LNormal1.0 - 4.0 E9/LRemisol HemeLymphocytes/100 WBC (Bld)28.2 %Normal 14.0 - 50.0 %Remisol HemeMCH (RBC) [Entitic mass]30.1 ivGssldk15.0 - 34.0 pg Remisol HemeMCHC (RBC) [Mass/Vol]33.7 g/nAYmtxyl08.4 - 36.0 gm/dLRemisol HemeMCV (RBC) [Entitic vol]89.4 aTNiycft17.0 - 100.0 fLRemisol HemeMonocytes (Bld) [#/Vol]0.6 E9/LNormal0.2 - 1.0 E9/LRemisol HemeMonocytes/100 WBC (Bld)8.7 % Normal4.0 - 14.0 %Remisol HemeNeutrophils (Bld) [#/Vol]3.7 E9/LNormal2.0 - 7.5 E9/LRemisol HemeNeutrophils/100 WBC (Bld)59.1 %Haqgls39.0 - 75.0 %Remisol Heme Platelet mean volume (Bld) [Entitic vol]7.2 fLNormal6.4 - 10.8 fLRemisol Heme Platelets (Bld) [#/Vol]194.0 E9/VDleknl130.0 - 500.0 E9/LRemisol HemeRBC (Bld) [#/Vol]4.2 E12/LLow4.3 - 5.9 E12/LRemisol HemeWBC corrected for nucl RBC Auto (Bld) [#/Vol]6.3 E9/LNormal4.0 - 11.0 E9/LRemisol HemeInfluenza A&B Agon 63-16-1351Fmxcgvyzxt A AgNegativeNormalNegativeAvita Health System Bucy[facility] Hospital Comment on above:Performed By: #### [id number], [id number] ####[facility] [address] [place], [place] [address]Qzqwuhucvv B Ag NegativeNormalNegativeAvita Health System Bucyrus HospitalComment on above:Result Comment: Test sensitivity and specificity vary for age group, specimen type, antigen types, and prevalence of disease. Test results must be evaluated in conjunction with other clinical data available to the physician. Individuals who received nasally administered Influenza A vaccine may havepositive test results up to 3 days after vaccination.Performed By: #### [id number], [id number] ####[facility] [address] [place], [place] [address]SSTWQ OTHER TESTSOrdered By: Hebert Begum on 82-75-3444Bmnjdzgebm A AgNegative (06/14/23 6:11 AM)NormalNegativePARKSIDE [facility] Man SeroInfluenzae B AgNegative 2 (06/14/23 6:11 AM)NormalNegativePARKSIDE PSYCH[facility]ATR[facility] [place] Man SeroComment on above:Interpretive Data: Test sensitivity and specificity vary for age group, specimen type, antigen types, and prevalence of disease. Test results must be evaluated in conjunction with other clinical dataavailable to the physician. Individuals who received nasally administered Influenza A vaccine may have positive test results up to 3 days after vaccination.Rapid COV Int NEG CtlPass (06/14/23 6:11 AM)NormalFT Man SeroRapid COV Int POS CtlPass (06/14/23 6:11 AM)NormalPARKSIDE PSYCHIATRIC [facility] [place] Man SeroSARS-CoV+SARS-CoV-2 (COVID-19) Ag IA.rapid Ql (Resp)Not Detected 3 (06/14/23 6:11 AM)NormalNot DetectedPARKSIDE PSYCHIATR[facility] [place] Man SeroComment on above:Interpretive Data: The PayAlliesitor System for Rapid Detection of SARS-CoV-2 is a chromatographic digital immunoassay intended for the direct and qualitative detection of SARS-CoV-2 nucleocapsid antigens in nasal swabs from individuals who are suspected of COVID-19 by their healthcare provider withinthe first five days of the onset of [...] of proteins from SARS-CoV-2, not for any otherviruses or pathogens; and, in the [facility], this test is only authorized for the duration of the declaration that circumstances exist justifying the authorization of emergency use of in vitro diagnostics for detection and/or diagnosis of the virus that causes COVID-19 under Section 564(b)(1) of the Act,21 U.S.C. 360bbb-3(b)(1), unless the authorization is terminated or revoked sooner.Pre-Arrival Noteon 73-16-6238Dkl-Arrival NoteNormal [facility] HospitalRapid COVID Antigen ([facility])on 20-20-3106Kigma COV Int NEG CtlPassNoBerger HospitalComment on above:Performed By: #### [id number], [id number] ####[facility] [address] [place], [place] [address]Gvywr COV Int POS CtlPassHolzer Medical Center – Jackson Comment on above:Performed By: #### [id number], [id number] ####[address] [place], [place] [address]QMAS-MxN+SARS-CoV-2 (COVID-19) Ag IA.rapid Ql (Resp)Not detectedNormalNot St. Mary's Medical CenterComment on above:Result Comment: The [employer] Veritor? System for Rapid Detection of SARS-CoV-2 is a chromatographic digital immunoassay intended for the direct and qualitative detection of SARS-CoV-2 nucleocapsid antigensin nasal swabs from individuals who are suspected of COVID-19 by their healthcare provider within the first five days of the onset of symptoms. Negative results should be treated as presumptive, do not rule out SARS-CoV-2 infection and should not be used as the sole basis for treatment or patient management decisions, including infection control decisions. Negative results should be considered inthe context of a patient?s recent exposures, history [...] the declaration that circumstances exist justifying the authori zation of emergency use of in vitro diagnostics for detection and/or diagnosis of the virus that causes COVID-19 under Section 564(b)(1) of the Act, 21 U.S.C. ? 360bbb-3(b)(1), unless the authorization is terminated or revoked sooner. Performed By: #### [id number], [id number] ####[facility] [address] [place], [place] [address]WS with Cult Rflxon 89-55-5379Urgws (U)ColorlessAbnormalYellowAvita Health System Bucyrus HospitalComment on above:Result Comment: Microscopic readings are only performed on those samples that meet specific criteria set forth by [facility].Performed By: #### [id number] ####[facility] [address] [facility], [place]Tqtzpoe (U) [Mass/Vol]NegativeNormalNegativeAvita Health System Bucyrus HospitalComment on above:Performed By: #### [id number] ####[facility] [address] [facility], [place]Winhlek Ql (U)Negative NormalNegativeAvita Health System Bucyrus HospitalComment on above:Performed By: #### [id number] ####[place] [address], [place] [address]GG BloodNegativeNormalNegativeAvita Health System Bucyrus HospitalComment on above: Performed By: #### [id number] ####[address]UA ClarityClearNormalClearAvita Health System Bucyrus HospitalComment on above:Performed By: #### [id number] ####[address]UA Leuk EstNegativeNormal NegativeAvita Health System Bucyrus HospitalComment on above:Performed By: #### [id number] ####[address] [address]VV NitriteNegativeNormalNegativeAvita Health System Bucyrus HospitalComment on above:Performed By: #### [id number] ####[address]UA pH7.5Invalid Interpretation Code 5.0-9.0[facility]cy[facility] HospitalComment on above:Performed By: #### [id number] ####[address] [id number] ProteinTraceAbnormalNegativeAvita Health System Bucyrus HospitalComment on above: Performed By: #### [id number] ####[address]UA Spec Grav1.005Invalid Interpretation Code 1.005-1.030Av[facility] Bucy[facility] HospitalComment on above:Performed By: #### [id number] ####[address] [address]SW UrobilinogenNegativeNormalNegCleveland Clinic Union HospitalComment on above:Performed By: #### [id number] ####[address]Urobilinogen (U) [Mass/Vol]Negative NormalNegativeAvita Health System Bucyrus HospitalComment on above:Performed By: #### [id number] ####[facility] Udkctvozmg030 Woden AveNLizemores, [place] [address]VT Spec DescClean CatchNormalAvita Health System Bucyrus HospitalComment on above: Performed By: #### [id number] ####[facility] Bcpzxjtrpt[address] [place], [place]WP[address]AORVSKLVWIYvnxynm By: [employer] Customer Support SYSTEM on 06-14-2023 Color (U)Colorless 1 *ABN* (06/14/23 6:40 AM)Invalid Interpretation CodeYellowPARKSIDE PSYCHIATRIC [facility] [place] UA Auto SSComment on above:Interpretive Data: Microscopic readings are only performed on those samples that meet specific criteria set forth by [facility].Glucose (U) [Mass/Vol]NegativeNormalNegativemg/dLPARKSIDE PSYCHIATRIC [facility] [place] UA Auto SS Ketones Ql (U)NegativeNormalNegativemg/dLPARKSIDE PSYCH[facility]ATRIC [facility] [place] UA Auto SSUA BloodNegativeNormal Negativemg/dLPARKSIDE PSYCH[facility]ATR[facility] [place] UA Auto SSUA ClarityClear (06/14/23 6:40 AM)NormalClearFTMC UA Auto SSUA Leuk EstNegativeNormal NegativeLeu/uLPARKSIDE PSYCHIATRIC [facility] [place] UA Auto SSUA NitriteNegativeNormalNegativemg/dLPARKSIDE PSYCH[facility]ATR[facility] [place] UA Auto SSUA pH7.5 *NA* (06/14/23 6:40 AM)Invalid Interpretation Code5.0 - 9.0[facility] UA Auto SSUA Protein Trace mg/dLInvalid Interpretation CodeNegativemg/dLPARKSIDE PSYCHIATRIC [facility] [place] UA Auto SSUA Spec Grav 1.005 *NA* (06/14/23 6:40 AM)Invalid Interpretation Code1.005 - 1.030[facility] UA Auto SSUA UrobilinogenNegativeNormalNegativemg/dLPARKSIDE PSYCHIATRIC [facility] [place] UA Auto SSUrobilinogen (U) [Mass/Vol]NegativeNormalNegativemg/dLPARKSIDE PSYCH[facility]ATRIC [facility] [place] UA Auto SSURINALYSISOrdered By: Do Montez on 99-87-8365YB Spec DescClean Catch (06/14/23 6:40 AM)NormalPARKSIDE PSYCHIATRIC [facility] UA Auto SS eGFRon 47-99-4088jCRP76 mL/min/1.73 t1Ulgszy>=59Av[facility] Health [facility] Bucyrus HospitalComment on above:Order Comment: Order added by Discern Expert.Performed By: #### [id number], 5403584, [id number] ####[address] [address]Fvrwaxt Recordon 06-09-2023 Monitor [id number]#1.00TIFFNormalAvita Health System Bucyrus HospitalCBC w/ Auto Diffon 65-73-1418Vjjfjkciq/100 WBC (Bld)0.5 % Normal0.0-2.0[facility] HospitalComment on above:Performed By: #### 9305632, 61302014, 63035470, 0802519 ####[address] [address]Ulyrjovoz/Leukocytes Auto (Bld) [Pure # fraction]0.0 E9/LNormal0.0-0.2FWright-Patterson Medical CenterComment on above: Performed By: #### 3504548, 26279913, 28380065, 8796298 ####[address] [address]Hxsxbbqnkan (Bld) [#/Vol]0.1 E9/LNormal0.0-0.5FWright-Patterson Medical CenterComment on above:Performed By: #### 3294816, 99784380, 95250030, 3940317 ####[address] [address]Xjhmuhhahum/100 WBC (Bld)2.1 %Normal 0.0-8.0[facility] HospitalComment on above:Performed By: #### 6320357, 54517447, 09225299, 4904477 ####[address] [address]Iwiyyyiuurv distribution width (RBC) [Ratio]14.1 % Nsltsr44.9-14.2FWright-Patterson Medical CenterComment on above:Performed By: #### 5015822, 40707203, 77329630, 0168156 ####[address] [address]Kfsxtrujpb (Bld) [Volume fraction] 36.0 %Muxsnu54.0-46.0[facility] Bu[facility] HospitalComment on above:Performed By: #### 4746886, 81006155, 32252189, 0793893 ####[address] [address]Zgzpblejmh (Bld) [Mass/Vol]12.0 g/dL Sdptzw17.0-16.0[facility] HospitalComment on above:Performed By: #### 2706815, 95267470, 05520675, 2099298 ####[address] [address]Nfrljkzwpzy (Bld) [#/Vol]1.0 E9/L Normal1.0-4.0[facility] HospitalComment on above:Performed By: #### 5209820, 25215111, 55055364, 0357322 ####[address] [address]Qjsehagmznt/100 WBC (Bld)17.8 %Normal 14.0-50.0[facility] HospitalComment on above:Performed By: #### 8156855, 05975402, 75824394, 4159260 ####[address] [address]CWD (RBC) [Entitic mass]30.0 wvTnkocs33.0-34.0 [facility] HospitalComment on above:Performed By: #### 3631372, 63995459, 12256248, 4053315 ####[address] [address]ORNA (RBC) [Mass/Vol]33.3 g/mPGcnlui26.4-36.0[facility] HospitalComment on above:Performed By: #### 8013132, 78355703, 05320788, 3808562 ####[address] [address]VIR (RBC) [Entitic vol]90.1 oGTkakpg11.0-100.0[facility] HospitalComment on above:Performed By: #### 5881388, 69051586, 91902466, 5882791 ####[address] [address]Sjkibpclu (Bld) [#/Vol]0.5 E9/LNormal0.2-1.0[facility] Comment on above:Performed By: #### 0895242, 37868258, 58658089, 4777269 ####[address] [address] Neutrophils (Bld) [#/Vol]3.8 E9/LNormal2.0-7.5FWright-Patterson Medical CenterComment on above:Performed By: #### 6270847, 62553877, 44843311, 7378962 ####[address] [address]Suutjhyuite/100 WBC (Bld)70.8 %Dezuuy73.0-75.0[facility] HospitalComment on above: Performed By: #### 7317570, 55647862, 17091579, 3673432 ####[address] [address]Szyoyknn237.0 E9/LNormal 150.0-500.0[facility] HospitalComment on above:Performed By: #### 6074548, 42688017, 80341985, 2353198 ####[address] [address]Niklpljf mean volume (Bld) [Entitic vol]7.1 fLNormal6.4-10.8[facility] HospitalComment on above:Performed By: #### 3536382, 07299247, 02435746, 6131067 ####[facility] Te[address]psxmjr[address] [place], [place] [address]NTN (Bld) [#/Vol]4.0 E12/LLow4.3-5.9 [facility] HospitalComment on above:Performed By: #### 5120569, 56961508, 99442254, 6561503 ####[facility] Nefppusxuy[address] [place], [place] [address]QQN corrected for nucl RBC Auto (Bld) [#/Vol]5.4 E9/LNormal4.0-11.0[facility] HospitalComment on above:Performed By: #### 1249865, 26278071, 45532809, 1560099 ####[facility] Qstspsnmtd[address] [place], [place] [address]LRKNECUUXZtjayqh By: SYSTEM SYSTEM on 80-35-0577Hchhczqi6.80 pg/mLLow10.10 - 27.10 pg/mLRemisol ChemComment on above: Interpretive Data: The 95% CI (Confidence Interval) PPV (Positive Predictive Value) for myocardial infarction in females is 38 pg/mL, in males 51 pg/mL. The results should be used in conjunction withclinical conditions of myocardial infarction. (Access High Sensitivity Troponin I Instructions For Use, Raegan [facility], October 2017)Albumin [Mass/Vol]4.1 g/dLNormal3.3 - 5.0 gm/dLRemisol Chem Albumin/Globulin [Mass ratio]1.4 {ratio}Normal1.1 - 2.2Remisol ChemALP [Catalytic activity/Vol]49 [iU]/oKdvdsu68 - 98 Int._Unit/LRemisol ChemALT No additional P-5'-P [Catalytic activity/Vol]11 [iU]/dNormal6 - 46 Int._Unit/L Remisol ChemAnion gap [Moles/Vol]9 mmol/LNormal6 - 16 mEq/LRemisol ChemAST [Catalytic activity/Vol]19 [iU]/dNormal5 - 43 Int._Unit/LRemisol ChemBilirubin [Mass/Vol]0.6 mg/dLNormal0.0 - 1.1 mg/dLRemisol ChemCalcium [Mass/Vol]9.4 mg/dL Normal8.9 - 11.1 mg/dLRemisol ChemChloride [Moles/Vol]97 mmol/QDnk027 - 111 mmol/LRemisol ChemCO2 [Moles/Vol]32 mmol/LHigh21 - 31 mmol/LRemisol Chem Creatinine [Mass/Vol]0.9 mg/dLNormal0.5 - 1.3 mg/dLRemisol KyfamGPU74 mL/min/1.73 d7Arnxbt>=59mL/min/1.73 p6Ojuqmdx ChemGlobulin (S) [Mass/Vol]3.0 g/dLNormal1.4 - 4.0 gm/dLRemisol ChemGlucose [Mass/Vol]99 mg/sRIidkkq04 - 199 mg/dLRemisol ChemPotassium [Moles/Vol]3.7 mmol/LNormal3.5 - 5.3 mmol/LRemisol ChemProtein [Mass/Vol]7.1 g/dLNormal6.0 - 7.8 gm/dLRemisol ChemSodium [Moles/Vol]134 mmol/VJla205 - 145 mmol/LRemisol ChemTroponin5.90 pg/mLLow10.10 - 27.10 pg/mLRemisol ChemComment on above:Interpretive Data: The 95% CI (Confidence Interval) PPV (Positive Predictive Value) for myocardial infarction in females is 38 pg/mL, in males 51 pg/mL. The results should be used in conjunction withclinical conditions of myocardial infarction. (Access High Sensitivity Troponin I Instructions For Use, Raegan Nolan, October 2017)Urea nitrogen [Mass/Vol]20 mg/dLNormal5 - 21 mg/dLRemisol ChemUrea nitrogen/Creatinine [Mass ratio]22 mg/ngIeyk45 - 20Remisol ChemCMPon 06-08-2023 Albumin [Mass/Vol]4.1 g/dLNormal3.3-5.0[facility] HospitalComment on above:Performed By: #### 8699142, 32963018, 85095103, 3887344 ####[facility] Crdgzwsqsl[address] [place], [place] [address]Mhaboqf/Globulin (S) [Mass conc ratio]1.0Isgazh5.1-2.2FWright-Patterson Medical CenterComment on above: Performed By: #### 8300795, 95095024, 89956351, 1395791 ####[address] [address]VNV [Catalytic activity/Vol]49 Int._Unit/LCusban03-05IerjxoAvita Health System Bucyrus HospitalComment on above:Performed By: #### 0024461, 26325663, 13333849, 0117687 ####[address] [address]HMZ No additional P-5'-P [Catalytic activity/Vol]11 Int._Unit/LNormal6-46[facility] HospitalComment on above:Performed By: #### 6589126, 32126144, 19566290, 0703750 ####[address] [address]Ttrxj gap [Moles/Vol]9 mmol/LNormal6-16[facility] HospitalComment on above:Performed By: #### 7425584, 18635646, 64672983, 0409734 ####[address] [address]BWA [Catalytic activity/Vol]19 Int._Unit/LNormal5-43[facility] HospitalComment on above:Performed By: #### 1341609, 51021325, 74191455, 4137738 ####[address] [address]Cfcoxaabl [Mass/Vol]0.6 mg/dLNormal 0.0-1.1FWright-Patterson Medical CenterComment on above:Performed By: #### 0113980, 26762486, 50672245, 4045857 ####[address] [address]Yfhkzoc [Mass/Vol]9.4 mg/dLNormal8.9-11.1FWright-Patterson Medical CenterComment on above:Performed By: #### 5885961, 77773580, 03618314, 7092304 ####[address] [place] [place], [place] [address]Sykilmit [Moles/Vol]97 mmol/ZSqe182-178McaarcAvita Health System Bucyrus HospitalComment on above:Performed By: #### 3823516, 70637322, 92433579, 0157569 ####[address] [place], [place] [address]BW2 [Moles/Vol]32 mmol/IBcuf47-46JodjowAvita Health System Bucyrus HospitalComment on above: Performed By: #### 0899732, 04998077, 04897772, 0003538 ####[address] [address]Ugyyivhdao [Mass/Vol]0.9 mg/dLNormal0.5-1.3FWright-Patterson Medical CenterComment on above:Performed By: #### 2852196, 31652511, 45771972, 1010409 ####[address] [address]Csruhwfz (S) [Mass/Vol]3.0 g/dLNormal 1.4-4.0[facility] HospitalComment on above:Performed By: #### 5359781, 56239748, 81767959, 4745151 ####[address] [address]Hamnaxb [Mass/Vol]99 mg/eSZzjesw60-028UkomeoAvita Health System Bucyrus HospitalComment on above:Performed By: #### 4140995, 86264802, 62687768, 8840278 ####[address] [address]Qdybmxgqd [Moles/Vol]3.7 mmol/LNormal3.5-5.3FW[facility]Pat[facility] Center Comment on above:Performed By: #### 4725907, 00304870, 48993335, 8807507 ####[address] [place] [address] Protein [Mass/Vol]7.1 g/dLNormal6.0-7.8[facility] HospitalComment on above:Performed By: #### 9691850, 61253938, 66255720, 8694129 ####[facility] [address] [place], [place] [address]Fstcuq [Moles/Vol]134 mmol/NCzq740-109TcklilAvita Health System Bucyrus HospitalComment on above:Performed By: #### 0921605, 01443546, 61719236, 6844395 ####[facility] [address]qhznqasti[address] [place], [place] [address]Cili nitrogen [Mass/Vol]20 mg/dL Normal5-21[facility] HospitalComment on above:Performed By: #### 4635631, 39271160, 21625783, 6502721 ####[facility] Redxuxmktl[address] [place], [place] [address]Lsjt nitrogen/Creatinine [Mass ratio] 22 No UpfhvVkni50-47BynjxhAvita Health System Bucyrus HospitalComment on above:Performed By: #### 6328730, 66825325, 55124783, 7925970 ####[facility] [address] [place], [place] [address]HC Head or Brain w/o Contraston 48-00-9283CT Head or Brain w/o ContrastHolzer Medical Center – JacksonConsent for Treatmenton 68-21-5850Obtvgmq for Treatment [id number]#1.00TIFUniversity Hospitals Conneaut Medical CenterDischarge Instructionson 15-76-3396Qvagjvsqq Instructions [id number]#1.00TIFFGalion Hospital Clinical Summaryon 83-33-2915LW Clinical SummaryNoFlower Hospital CenterED Note-Nursingon 90-40-2174DM Note-Nursingpt walked to waiting room with assistance from her grandson. grandson driving her homeNoFlower Hospital CenterED Note-Nursingpt given d/c instructions and educated on importance of follow up. pt verbalized understanding of instructions and readiness for d/c. pt called her family for a ride home and is waiting for them to get here to take her homeGalion Hospital Patient Education Noteon 23-16-0659BL Patient Education NoteNoTri[facility] Patient Summaryon 29-40-7793IV Patient SummaryNoBerger HospitalHEMATOLOGYOrdered By: SYSTEM SYSTEM on 23-90-4691Ihosqeimd/100 WBC (Bld)0.5 %Normal0.0 - 2.0 %Remisol HemeBasophils/Leukocytes Auto (Bld) [Pure # fraction]0.0 E9/LNormal0.0 - 0.2 E9/LRemisol HemeEosinophils (Bld) [#/Vol]0.1 E9/LNormal0.0 - 0.5 E9/LRemisol HemeEosinophils/100 WBC (Bld)2.1 %Normal0.0 - 8.0 %Remisol HemeErythrocyte distribution width (RBC) [Ratio]14.1 %Yolmvs54.9 - 14.2 %Remisol HemeHematocrit (Bld) [Volume fraction]36.0 %Tgytjf66.0 - 46.0 % Remisol HemeHemoglobin (Bld) [Mass/Vol]12.0 g/hAAlynuy93.0 - 16.0 gm/dLRemisol HemeLymphocytes (Bld) [#/Vol]1.0 E9/LNormal1.0 - 4.0 E9/LRemisol Heme Lymphocytes/100 WBC (Bld)17.8 %Fywmyt09.0 - 50.0 %Remisol HemeMCH (RBC) [Entitic mass]30.0 jxBxjbjc85.0 - 34.0 pgRemisol HemeMCHC (RBC) [Mass/Vol]33.3 g/dL Matiyq81.4 - 36.0 gm/dLRemisol HemeMCV (RBC) [Entitic vol]90.1 xRKrszqq20.0 - 100.0 fLRemisol HemeMonocytes (Bld) [#/Vol]0.5 E9/LNormal0.2 - 1.0 E9/LRemisol HemeMonocytes/100 WBC (Bld)8.8 %Normal4.0 - 14.0 %Remisol HemeNeutrophils (Bld) [#/Vol]3.8 E9/LNormal2.0 - 7.5 E9/LRemisol HemeNeutrophils/100 WBC (Bld)70.8 % Cnntjd24.0 - 75.0 %Remisol NfrlZmsmlqfj089.0 E9/TYigkku961.0 - 500.0 E9/LRemisol HemePlatelet mean volume (Bld) [Entitic vol]7.1 fLNormal6.4 - 10.8 fLRemisol HemeRBC (Bld) [#/Vol]4.0 E12/LLow4.3 - 5.9 E12/LRemisol HemeWBC corrected for nucl RBC Auto (Bld) [#/Vol]5.4 E9/LNormal4.0 - 11.0 E9/LRemisol HemeInfluenza A&B Agon 15-05-6566Rbsndozxfn A AgNegativeNormalNegativeAvita Health System Bucyrus HospitalComment on above:Performed By: #### [id number], 94602329, [id number] ####[facility] [address] [place] [address] Influenzae B AgNegativeNormalNegativeAvita Health System Bucyrus HospitalComment on above:Result Comment: Test sensitivity and specificity vary for age group, specimen type, antigen types, and prevalence of disease. Test results must be evaluated in conjunction with other clinical data available to the physician. Individuals who received nasally administered Influenza A vaccine may have positive test results up to 3 days after vaccination.Performed By: #### [id number], 78705723, [id number] ####[facility] Hgmzhphfui[address] [place], [place] [address]JMXDP OTHER TESTSOrdered By: Bettina Bullard on 88-88-4829Zqjoyjchuk A AgNegative (06/08/23 2:48 PM)NormalNegativePARKSIDE PSY[facility] Man SeroInfluenzae B AgNegative 2 (06/08/23 2:48 PM)NormalNegativePARKSIDE PSYCH[facility]ATR[facility] Man SeroComment on above:Interpretive Data: Test sensitivity and specificity vary for age group, specimen type, antigen types, and prevalence of disease. Test results must be evaluated in conjunction with other clinical dataavailable to the physician. Individuals who received nasally administered Influenza A vaccine may have positive test results up to 3 days after vaccination.Rapid COV Int NEG CtlPass (06/08/23 2:48 PM)NormalPARKSIDE PSYCHIATRIC [facility]OS[facility] Man SeroRapid COV Int POS CtlPass (06/08/23 2:48 PM)NormalPARKSIDE PSYCHIATRIC [facility] Man SeroRSV Ag IA.rapid Ql (Nph)Negative (06/08/23 2:48 PM)NormalNegativePARKSIDE PSYCHIATRIC [facility] Man SeroSARS-CoV+SARS-CoV-2 (COVID-19) Ag IA.rapid Ql (Resp)Not Detected 5 (06/08/23 2:48 PM)NormalNot DetectedPARKSIDE PSYCHIATRIC [facility] Man SeroComment on above:Interpretive Data: The [facility] System for Rapid Detection of SARS-CoV-2 is a chromatographic digital immunoassay intended for the direct and qualitative detection of SARS-CoV-2 nucleocapsid antigens in nasal swabs from individuals who are suspected of COVID-19 by their healthcare provider withinthe first five days of the onset of [...] of proteins from SARS-CoV-2, not for any otherviruses or pathogens; and, in the [place], this test is only authorized for the duration of the declaration that circumstances exist justifying the authorization of emergency use of in vitro diagnostics for detection and/or diagnosis of the virus that causes COVID-19 under Section 564(b)(1) of the Act,21 U.S.C. 360bbb-3(b)(1), unless the authorization is terminated or revoked sooner.Pre-Arrival Noteon 91-51-2955Kgf-Arrival NoteNormal [facility] HospitalProgress Note-Nurseon 46-48-3976Drdpyweq Note-Nurse Patient to CT scanNormLouis Stokes Cleveland VA Medical CenterRapid COVID Antigen ([facility])on 43-60-9360Erofx COV Int NEG CtlPassNormLouis Stokes Cleveland VA Medical CenterComment on above:Performed By: #### [id number], 34886699, [id number] ####[facility] [address]llraibq[address] [place], [place] [address]Vmgwn COV Int POS CtlPass NormalAvita Health System Bucyrus HospitalComment on above:Performed By: #### 74969655, 16503622, [id number] ####[facility] Qsdmjrtvrx[address] [place], [place] [address]NYLU-FmU+SARS-CoV-2 (COVID-19) Ag IA.rapid Ql (Resp)Not detectedNormalNot DetectedAvita Health System Bucyrus HospitalComment on above:Result Comment: The [facility]? System for Rapid Detection of SARS-CoV-2 is a chromatographic digital immunoassay intended for the direct and qualitative detection of SARS-CoV-2 nucleocapsid antigensin nasal swabs from individuals who are suspected of COVID-19 by their healthcare provider within the first five days of the onset of symptoms. Negative results should be treated as presumptive, do not rule out SARS-CoV-2 infection and should not be used as the sole basis for treatment or patient management decisions, including infection control decisions. Negative results should be considered inthe context of a patient?s recent exposures, history and the presence of clinical signs and symptoms consistent with COVID-19, and confirmed with a molecular assay, if necessary, for patient management. For in vitro diagnostic use. In the [facility], only for use under an Emergency Use [...] detection and/or diagnosis of the virus that cau ses COVID-19 under Section 564(b)(1) of the Act, 21 U.S.C. ? 360bbb-3(b)(1), unless the authorization is terminated or revoked sooner.Performed By: #### [id number], 12253222, [id number] ####[facility] [address] [place], [place] [address]Yqwe.syn.virus (Rsv)on 16-02-2309WQW Ag IA.rapid Ql (Nph)NegativeNormalNegativeAvita Health System Bucyrus HospitalComment on above: Performed By: #### [id number], 73538242, [id number] ####[facility] [address]sw[address] [place], [place] [address]Pomuquny 0 Hr.on 06-08-2023 Troponin5.90 pg/mLLow10.10-27.10[facility] HospitalComment on above: Result Comment: The 95% CI (Confidence Interval) PPV (Positive Predictive Value) for myocardial infarction in females is 38 pg/mL, in males 51 pg/mL. The results should be used in conjunction with clinical conditions of myocardial infarction.(Access High Sensitivity Troponin I Instructions For Use,Raegan Nolan, October 2017)Performed By: #### [id number], 46991794, 00407894, 0086730 ####[address] [address] Troponin 3 Hr.on 02-61-4668Hsuhuvos4.80 pg/mLLow10.10-27.10[facility] HospitalComment on above:Result Comment: The 95% CI (Confidence Interval) PPV (Positive Predictive Value) for myocardial infarction in females is 38 pg/mL, in males 51 pg/mL. The results should be used in conjunction with clinical conditions of myocardial infarction.(Access High Sensitivity Troponin I Instructions For Use,Raegan Nolan, October 2017)Performed By: #### [id number] ####[address] [address]ZH with Cult Rflxon 57-75-6817Qfmnl (U)ColorlessAbnormalYellowAvita Health System Bucyrus HospitalComment on above:Result Comment: Microscopic readings are only performed on those samples that meet specific criteria set forth by [facility].Performed By: #### [id number] ####[address]Glucose (U) [Mass/Vol]NegativeNormal NegativeAvita Health System Bucyrus HospitalComment on above:Performed By: #### [id number] ####[address] [address]Rqglbbo Ql (U)NegativeNormalNegativeAvita Health System Bucyrus HospitalComment on above:Performed By: #### [id number] ####[address]UA BloodNegativeNormalNegativeAvita Health System Bucyrus HospitalComment on above:Performed By: #### [id number] ####[address], [id number] ClarityClear NormalClearFisher Sinai Hospital Of BaltimoreComment on above:Performed By: #### [id number] ####[address] [address]RY Leuk EstNegativeNormalNegativeAvita Health System Bucyrus HospitalComment on above:Performed By: #### [id number] ####[facility] Vjqonhdyaz[address] AveNoralice hyde medical centerk, [id number] NitriteNegativeNormalNegativeAvita Health System Bucyrus HospitalComment on above:Performed By: #### [id number] ####[place] [address] W[address] AveNoralice hyde medical centerk, [id number] pH6.5Invalid Interpretation Code5.0-9.0[facility] HospitalComment on above:Performed By: #### [id number] ####[address] [place] [facility], [id number] ProteinNegativeNormalNegativeAvita Health System Bucyrus Hospital Comment on above:Performed By: #### [id number] ####[address] AveNthe institute of living, [id number] Spec Grav1.011Invalid Interpretation Code1.005-1.030[facility] HospitalComment on above: Performed By: #### [id number] ####[address], [id number] UrobilinogenNegativeNormalNegativeAvita Health System Bucyrus HospitalComment on above:Performed By: #### [id number] ####[address] [place] [facility], [id number] (U) [Mass/Vol]NegativeNormalNegativeAvita Health System Bucyrus HospitalComment on above: Performed By: #### [id number] ####[address] [facility], [id number] Spec DescRandom UrineNormalAvita Health System Bucyrus HospitalComment on above:Performed By: #### [id number] ####[address] [facility], [id number] By: SYSTEM SYSTEM on 57-67-9434Glskz (U)Colorless 1 *ABN* (06/08/23 7:17 PM)Invalid Interpretation CodeYelOrange Regional Medical Center UA Auto SSComment on above:Interpretive Data: Microscopic readings are only performed on those samples that meet specific criteria set forth by [facility].Glucose (U) [Mass/Vol]NegativeNormalNegativemg/dLPARKSIDE PSY[facility]ATRIC [facility] UA Auto SS Ketones Ql (U)NegativeNormalNegativemg/dLPARKSIDE PSYCHIATRIC [facility] [place] UA Auto SSUA BloodNegativeNormal Negativemg/dLPARKSIDE PSYCHIATRIC [facility] [place] UA Auto SSUA ClarityClear (06/08/23 7:17 PM)NormalClearFTM UA Auto SSUA Leuk EstNegativeNormal NegativeLeu/uLPARKSIDE PSYCHIATRIC [facility] [place] UA Auto SSUA NitriteNegativeNormalNegativemg/dLPARKSIDE PSYCHIATRIC [facility] [place] UA Auto SSUA pH6.5 *NA* (06/08/23 7:17 PM)Invalid Interpretation Code5.0 - 9.0PAR[facility] UA Auto SSUA Protein NegativeNormalNegativemg/dLPARKSIDE PSYCHIATR[facility] UA Auto SSUA Spec Grav1.011 *NA* (06/08/23 7:17 PM)Invalid Interpretation Code1.005 - 1.030[facility] UA Auto SSUA UrobilinogenNegativeNormalNegativemg/dLPARKSIDE PSY[facility]ATR[facility] [place] UA Auto SSUrobilinogen (U) [Mass/Vol]NegativeNormalNegativemg/dLPARKSIDE [facility] [place] UA Auto SSURINALYSISOrdered By: Rocio Jara on 32-50-9078VT Spec DescRandom Urine (06/08/23 7:17 PM)NormalPARKSIDE PSY[facility]ATR[facility] [place] UA Auto SS xr Chest Single Viewon 75-69-2518LP Chest Single View NormalAvita Health System Bucyrus HospitaleGFRon 86-19-5268lXYW05 mL/min/1.73 o7Goffeu >=59[facility] HospitalComment on above:Order Comment: Order added by Discern Expert.Performed By: #### [id number], [id number], [id number], [id number] ####[facility] [address] Nick [place], [place] [address]SZWZ on 18-20-8376ISEIWpvakwnzk (NECVS8) [facility] ([id number][facility] 1940 F LV Date Time Provider Department 05/28/23 KERRY FARR [...] Marcelino, 1940). Yes Number to return call [phone] Reason for Call: Results: Results Calling office requesting result of CT scan test, completed on 05/28/23. Please call patient back at [phone] Patient missed follow up appt scheduled for today 05/28/23.Please call pt to discuss results and whether or not patient is able to fly. . Sandy Ho 05/29/2023 8:13 AM Addendum OSH imaging/records received from Enrrique Valentinus: May 28, 2023 -05.28.23 CT Imaging Report available within imaging electronically. Rola [place] 05/29/2023 11:59 AM Signed Patient calling to discuss CT results. Please call [phone] Dinah Lopez, RN 05/29/2023 1:30 PM Signed Spoke with pt, per [facility] ct scan is fine, blood is resolve, Has no issue with pt flying. Pt to schedule f/u when returns from [place]. Pt verbalized understanding. Allergies As of Date: [...] tablet by mouth daily at bedtime. - triamterene-hydroCHLOROthiazide (DYAZIDE) 37.5-25 mg per capsule Take 1 capsule by mouth once daily. - montelukast (SINGULAIR) 10 mg tablet Take 10 mg by mouth once daily. - omega 3-tip-iqy-fish oil (FISH OIL) 100-160-1,000 mg cap Take by mouth. - Walker misc front wheeled walker dx left knee hematoma, Print Requisition, Compound - multivitamin (MULTIPLE VITAMINS ORAL) Refill(s) 0 - baclofen (LIORESAL) 10 mg tablet Baclofen Baclofen Active 5 MG Oral Daily at bedtime August 01, 2017 3:16pm 08-01-2017 [facility] (52605) - cetirizine 10 mg ODT Cetirizine Cetirizine Active 10 MG Oral Daily August 01, 2017 3:16pm 08-01-2017 [facility] (35057) - Cholecalciferol, Vitamin D3, (VITAMIN D-3) 2,000 [...] M24.876] 01/01/2012 DERANGEMENT ANKLE/MIRA (more content not included)...NormalF[facility] Head or Brain w/o Contraston 53-16-5325NU Head or Brain w/o Contrast [facility] JacksonConsent for Treatmenton 73-53-1729Xjyojrk for [id number]#1.00TIFFNoBerger HospitalPhysician Orderon 16-85-8220Xjukuytke Order [id number]#1.00TIFFNoBerger HospitalPhysician [id number]#1.00TIFFNormal [facility] HospitalPhysician Order [id number]#1.00TIFFNormalFisher Bryce Hospital 83-83-2679BDQBHR HEALTHHNO ID: [id number] Author: CHIARA SANCHEZ Chaplain Service: Healing Service [...] Serious Diagnosis Patient Pattern Awareness - Practical: Finances;Housing;Work/School;Discharge Plans Patient Pattern Awareness - Family/Community: Significant Other;Children/Grandchildren;Parents/Family;Spiritual Community;Friends Patient Pattern Awareness - Emotional: Blessed;Calm;Communication;Grief;Hopeful;Joyful;Peaceful What have you done that has worked to make you feel better?: Aromatherapy;Breathing exercises;Spiritual practice/Prayer/Meditation;Talking with someone Home Sleep Pattern: [facility] Sleep Pattern: Interrupted SELF-REPORTED PATIENT EXPERIENCE SCALE Mood Relaxed Pain 0 = Best 0 = Relaxed 0 = No Pain 10 = Worst 10 = Stressed/Tense 10 = Worst Pain Before: 4 Before: 2 Before: Location: After: 2 After: 3 After: Services performed: Emotional support;Coaching;Therapeutic presence;Aromatherapy [place] goal(s) of visit: Create healing environment for [...] 07, 2023 TIME: 1:54 PM CONTACT #: [id number] Clinic Fairview HospitalActivated partial thromboplastin time (aPTT) in platelet poor plasma by coagulation aon 05-07-2023 aPTT Coag (PPP) [Time]28.7 mYvkzik54.0-32.4FWilson Memorial Hospital Comment on above:Order Comment: Specimen Type: BLOOD SPECIMENOrdering Facility: [facility] Address:[address] [place] [address] Performed By: #### 54728-2 ####[facility] LABIA [id number] [place] [address] [place] Automated basophil %on 55-55-5719Fsqdyioxp/100 WBC (Bld)0.4 %[facility] South CampusComment on above:Order Comment: Specimen Type: BLOOD SPECIMENOrdering Facility: [facility] Address:[address] [place], [place] [address]Performed By: #### 61026-1 ####[facility] LABIA [id number] [address] OF AMERICAAutomated basophil counton 29-03-5701Mxvmwague (Bld) [#/Vol]0.03 10*3/uL Normal<0.11[facility] CenterComment on above:Order Comment: Specimen Type: BLOOD SPECIMENOrdering Facility: [facility] Address:[address] [place], [place] [address]Performed By: #### 62576-4 ####[facility] LABCLIA [id number] [address] STATES OF AMERICAAutomated blood monocyte counton 04-85-4581Fdeuhvixn (Bld) [#/Vol]0.64 10*3/uLNormal<0.87[facility] Medical CenterComment on above:Order Comment: Specimen Type: BLOOD SPECIMENOrdering Facility: [facility] Address:[address] [place], [place] [address]Performed By: #### 12969-3 ####[facility] LABCLIA [id number] [place] [address] [place] AMERICAAutomated eosinophil %on 26-33-0307Dqjdqmykcwa/100 WBC (Bld)1.8 %[facility] DaytonComment on above:Order Comment: Specimen Type: BLOOD SPECIMENOrdering Facility: [facility] Address:[address] [place], [place] [address]Performed By: #### 15808-8 ####[facility] LABCLIA [id number] [place] [address] [place] AMERICAAutomated monocyte %on 69-30-6634Bwsbwjbmc/100 WBC (Bld)9.0 % [facility] South CampusComment on above:Order Comment: Specimen Type: BLOOD SPECIMENOrdering Facility: [facility] Address:[address] [place], [place] [address]Performed By: #### 08727-2 ####[facility] LABCLIA [id number] [place] [address] [place] AMERICAAutomated neutrophil %on 50-40-5811Imoqscrhpod/100 WBC (Bld)74.3 %[facility] South CampusComment on above:Order Comment: Specimen Type: BLOOD SPECIMENOrdering Facility: [facility] Address:[address] [place], [place] [address]Performed By: #### 97589- 8 ####[facility] LABCLIA [id number] [place] [address] [place] AMERICABlood manual differential comment interpretation narrativeon 55-52-1166Aunxmp differential comment Girma (Bld) [Interp][facility] CenterCASE MANAGEMon 32-52-6615ZRCD MANAGENO ID: [id number] Author: ?, ?, ? Service: ? Author Type: ? Type: Care Mgt Progress Note Filed: 05/07/2023 13:04 Note Text: CARE MANAGEMENT PROGRESS NOTE SERVICE DATE: 05/07/2023 SERVICE TIME: 1:04 PM LOS: 4 days IMM Follow Up Copy Given: Yes Copy given to:: Patient Method: In Person SIGNATURE: Stacey Palencia CMA PATIENT NAME: Carly Marcelino DATE: May 07, 2023 TIME: 1:04 PM PAGER/CONTACT #: [phone] Clinic Foundation MANAGENO ID: [id number] Author: BHAVYA BANUELOS RN Service: ? Author [...] Arrangements: Car Date of Trip: 05/07/23 Destination: [address] [place] [address] Handoff Communication: Handoff to: Primary Care Physician Primary Care Physician Name/Phone: Hardeep Mckenzie DO PCP [phone] Additional Information: N/A Patient d/c ready to home with no skilled needs identified. Patient and bedside RN aware of plan. Family to transport patient home via private auto. SIGNATURE: Bhavya Banuelos RN PATIENT NAME: Carly Marcelino DATE: May 07, 2023 TIME: 12:22 PM CONTACT #: [id number] Health System [facility] Hospital MGT INIT ASSESon 25-87-9337CIVL MGT INIT ASSSSM REHABNO ID: [id number] Author: BHAVYA BANUELOS RN Service: ? Author [...] Current Advance Directive: Health Care Power of Manufacturing Project Engineer In Chart: Yes Up To Date and [...] Be able to go home, General wellness [place] of Choice Explained: [place] of Choice Given: No Reason Not Given: [...] 07, 2023 TIME: 12:08 PM CONTACT #: [id number] [facility] W Auto Diff B[place]on 21-77-7755Mtpxignszqr (Bld) [#/Vol]0.13 10*3/uLNormal<0.46[facility] Medical CenterComment on above:Order Comment: Specimen Type: BLOOD SPECIMENOrdering Facility: [facility] Address:[address] [place], [place] [address]Performed By: #### 67244-9 ####[facility] LABCLIA [id number] [facility] [place] [address] [place] AMERICAImmature granulocytes/100 WBC (Bld)0.3 %NormalCincinnati Children'S Hospital Medical CenterComment on above:Order Comment: Specimen Type: BLOOD SPECIMENOrdering Facility: [facility] Address:[address] [place], [place] [address]Performed By: #### 84739-7 ####[facility] LABCLIA [id number] [place] [address] [place] CBC W Auto Differential panel (Bld)on 97-89-0411Ldbfgkbldzmq cell count method Nom (Bld)AutoNormalCCleveland Clinic Avon Hospital on above:Order Comment: Specimen Type: BLOOD SPECIMENOrdering Facility: [facility] Address:[address] [place], [place] [address]Performed By: #### 06154-1 ####[facility] LABCLIA [id number] [place] [address] [place] AMERICAImmature granulocytes (Bld) [#/Vol]10*3/uLNormal<0.10[facility] on above:Order Comment: Specimen Type: BLOOD SPECIMENOrdering Facility: [facility] Address:[address] [place], [place] [address]Performed By: #### 35456- 8 ####[facility] LABCLIA [id number] [place] [address] [place] AMERICANucleated RBC/100 WBC (Bld) [Ratio]0.0 /100 WBCNormalCCleveland Clinic Avon Hospital on above:Order Comment: Specimen Type: BLOOD SPECIMENOrdering Facility: [facility] Address:[address] [place], [place] [address]Performed By: #### 70578- 8 ####[facility] LABCLIA [id number] [place] [address] [place] AMERICAWBC (Bld) [#/Vol]7.13 10*3/uL Normal3.70-11.00[facility] on above:Order Comment: Specimen Type: BLOOD SPECIMENOrdering Facility: [facility] Address:[address] [place], [place] [address]Performed By: #### 00442-0 ####[facility] VIVIANA [id number] JAIR CAMEJO [id number] HOOD STREETCNDeyanira 52-70-6418CQMVIIP ID: [id number] Author: ROCIO MARINELLI PA-C Service: Neurosurgery Author Type: Physician Dialysis Social Worker Type: Discharge Summary Filed: 05/07/2023 12:49 Note Text: Attestation signed by Key Gracia MD at 05/07/2023 1:58 PM Staff Addendum: Agree with above. Key Gracia MD Neurosurgery May 07, 2023 1:58 PM DISCHARGE SUMMARY CEREBROVASCULAR PATIENT NAME: Carly Marcelino [...] hypertension (POA: Unknown) Coronary artery disease involving [place] coronary artery of [place] heart without angina pectoris (POA: Unknown) Mixed [...] transferred from an outside hospital to the [facility] with right frontal cortical SAH (eliquis [...] not significantly changed from (more content not included)...Normal [facility] Metab 1999 Pnl SerPlon 77-03-0411Algccqj [Mass/Vol]3.7 g/dLLow3.9-4.9[facility] Medical CenterComment on above: Order Comment: Specimen Type: BLOOD SPECIMENOrdering Facility: [facility] Address:[address] [place], [place] [address]Performed By: #### 47519- 9, 2776-03, ####[facility] LABCLIA [id number] [address] [place] AMERICAALP [Catalytic activity/Vol]55 U/QIhpdmj36-181XrdmwcpjeCincinnati Children'S Hospital Medical CenterComment on above:Order Comment: Specimen Type: BLOOD SPECIMENOrdering Facility: [facility] Address:[address] [place], [place] [address]Performed By: #### 25068-1, 27709-09, 17726-8 ####[facility] LABCLIA [id number] [place] [address] [place] AMERICAALT [Catalytic activity/Vol]9 U/LNormal7-38[facility] Medical CenterComment on above: Order Comment: Specimen Type: BLOOD SPECIMENOrdering Facility: [facility] Address:[address] [place], [place] [address]Performed By: #### 76040- 9, 277-, 00815-6 ####[facility] LABCLIA [id number] [address] [address] [place] AMERICAAST [Catalytic activity/Vol]15 U/KYdqkgp57-42GjmdrnknzCincinnati Children'S Hospital Medical CenterComment on above: Order Comment: Specimen Type: BLOOD SPECIMENOrdering Facility: [facility] Address:[address] [place], [place] [address]Performed By: #### 04018- 9, 2777-, 03622-0 ####[facility] LABCLIA [id number] [address] [address] [place] AMERICABilirubin [Mass/Vol] 0.4 mg/dLNormal0.2-1.3FWilson Memorial HospitalComment on above:Order Comment: Specimen Type: BLOOD SPECIMENOrdering Facility: [facility] Address:[address] [place], [place] [address]Performed By: #### 11605- 9, 27709-09, 84801-0 ####[facility] LABCLIA [id number] [address] [place] AMERICACalcium [Mass/Vol]9.3 mg/dLNormal8.5-10.2FWilson Memorial HospitalComment on above:Order Comment: Specimen Type: BLOOD SPECIMENOrdering Facility: [facility] Address:[address] [place], [place] [address]Performed By: #### 10769- 9, 2777-, 37344-0 ####[facility] LABCLIA [id number] [address] [address] [place] AMERICAChloride [Moles/Vol] 99 mmol/VRvwwkf40-536LrrsrbyzfCincinnati Children'S Hospital Medical CenterComment on above:Order Comment: Specimen Type: BLOOD SPECIMENOrdering Facility: [facility] Address:[address] [place] [address]Sksxefmoj By: #### 17951- 9, 2777-1, 96743-2 ####[facility] LABCLIA [id number] VILLE [address] [place] AMERICACO2 [Moles/Vol]24 mmol/DLhxfji38-82IkxbbwpamCincinnati Children'S Hospital Medical CenterComment on above:Order Comment: Specimen Type: BLOOD SPECIMENOrdering Facility: [facility] Address:[address] [place] [address]Unbspztfl By: #### 51209- 9, 2777-1, 16656-1 ####[facility] LABIA [id number] VILLE [address] [place] AMERICACreatinine [Mass/Vol] 0.73 mg/dLNormal0.58-0.96[facility] Medical CenterComment on above:Order Comment: Specimen Type: BLOOD SPECIMENOrdering Facility: [facility] Address:[address] [place] [address]Qjxxrcvtv By: #### 48029- 9, 2777-, 75427-8 ####[facility] LABIA [id number] VILLE [address] [place] AMERICAGlucose [Mass/Vol]91 mg/yLJiptrn94-90RtipwvtfbCincinnati Children'S Hospital Medical CenterComment on above:The [place] Diabetes Association (ADA) provides guidance for cutoff values for fasting glucose andrandom glucose. The ADA defines fasting as no [...] hyperglycemia or hyperglycemic crisis, random plasma glucose resultsgreater than or equal to 200 mg/dL meet the criteria for diagnosis of diabetes.Reference: Standardsof Medical Care in Diabetes 2016, [place] Diabetes Association. Diabetes Care. 2016.39(Suppl 1). Order Comment: Specimen Type: BLOOD SPECIMENOrdering Facility: [facility] Address:[address] [place], [place] [address]Result Comment: The [place] Diabetes Association (ADA) provides guidance for cutoff values for fast ing glucose and random glucose. The ADA defines [...] Standards of Medical Care in Diabetes 2016, [place] Diabetes Association. Diabetes Care. 2016.39(Suppl 1).Performed By: #### 52748-0, 2777-, 79092-9 ####[facility] LABIA [id number] [address] [place] AMERICAPotassium [Moles/Vol] 4.1 mmol/LNormal3.7-5.1FWilson Memorial HospitalComment on above:Order Comment: Specimen Type: BLOOD SPECIMENOrdering Facility: [facility] Address:[address] [place], [place] [address]Performed By: #### 43406- 9, 2777, 07303-4 ####[facility] LABIA [id number] VILLE [address] [place] AMERICAProtein [Mass/Vol]6.3 g/dLNormal6.3-8.0[facility] Medical CenterComment on above:Order Comment: Specimen Type: BLOOD SPECIMENOrdering Facility: [facility] Address:[address] [place], [place] [address]Performed By: #### 39206- 9, 2777, 92232-1 ####[facility] LABCLIA [id number] [place] [address] [place] AMERICASodium [Moles/Vol]134 mmol/WCfg765-386AyktlajinCincinnati Children'S Hospital Medical CenterComment on above:Order Comment: Specimen Type: BLOOD SPECIMENOrdering Facility: [facility] Address:[address] [place], [place] [address]Performed By: #### 98835- 9, 27709-09, 16721-6 ####[facility] LABCLIA [id number] [address] [place] AMERICAUrea nitrogen [Mass/Vol]19 mg/dLNormal7-21[facility] CenterComment on above: Order Comment: Specimen Type: BLOOD SPECIMENOrdering Facility: [facility] Address:[address] [place], [place] [address]Performed By: #### 63725- 9, 27709-09, ####[facility] LABCLIA [id number] [address] [place] AMERICAComprehensive metabolic 2000 panelon 24-03-4592Qdopdyeqrq and Glomerular filtration rate.predicted panel (S/P/Bld)82 mL/min/1.73m???Normal>=60[facility] HospitalComselect specialty hospital-[facility] on above:Order Comment: Specimen Type: BLOOD SPECIMENOrdering Facility: [facility] Address:[address] [place], [place] [address]Result Comment: Estimated Glomerular Filtration Rate (eGFR) is calculated using the 2020 CKD-EPI creatinine equation. This equation utilizes serum creatinine, sex, and age as parameters. The creatinine assay has traceable calibration to isotope dilution-mass spectrometry. Refer to KDIGO guidelines for clinical interpretation. In patients with unstable renal function, e.g. those with acute kidney injury, the eGFR may not accurately reflect actual GFR. Performed By: #### 56540-1, 2776-03, 57642-5 ####[facility] LABCLIA [id number] VILLE [address] [place] AMERICAErythrocyte distribution width [Ratio] by Automated counton 05-07-2023 Erythrocyte distribution width (RBC) [Ratio]14.0 %Akcxss12.5-15.0[facility] Medical CenterComment on above:Order Comment: Specimen Type: BLOOD SPECIMENOrdering Facility: [facility] Address:[address] [place], [place] [address]Performed By: #### 63332-2 ####[facility] LABCLIA [id number] [place] [address] [place] AMERICAErythrocytes [#/volume] in Blood by Automated counton 58-90-9083WID (Bld) [#/Vol]4.15 10*6/uLNormal3.90-5.20[facility] Medical CenterComment on above:Order Comment: Specimen Type: BLOOD SPECIMENOrdering Facility: [facility] Address:[address] [place] [address] Performed By: #### 61873-7 ####[facility] LABCLIA [id number] [place] [address] [place] Hematocrit [Volume Fraction] of Blood by Automated counton 32-75-9662Jaofxugyey (Bld) [Volume fraction]37.9 %Ddnrmq04.0-46.0[facility] Comment on above:Order Comment: Specimen Type: BLOOD SPECIMENOrdering Facility: [facility] Address:[address] [place] [address] Performed By: #### 11765-7 ####[facility] LABCLIA [id number] [place] [address] [place] Hemoglobin [Mass/volume] in Bloodon 73-07-8540Hykrhrzggd (Bld) [Mass/Vol]12.4 g/rATlqyxr56.5-15.5FWilson Memorial HospitalComment on above:Order Comment: Specimen Type: BLOOD SPECIMENOrdering Facility: [facility] Address:[address] [place], [place] [address]Performed By: #### 72752- 8 ####[facility] LABCLIA [id number] [place] [address] [place] AMERICALeukocytes [#/volume] corrected for nucleated erythrocytes in Blood by Automated counon 26-36-4597TUX corrected for nucl RBC Auto (Bld) [#/Vol]7.13 k/uL3.70-11.00[facility] Medical CenterLymphocytes [#/volume] in Blood by Automated counton 44-00-6866Yybapgencmm (Bld) [#/Vol]1.01 10*3/uLNormal1.00-4.00[facility] Comment on above:Order Comment: Specimen Type: BLOOD SPECIMENOrdering Facility: [facility] Address:[address] [place] [address] Performed By: #### 12890-0 ####[facility] LABCLIA [id number] [address] [place] Lymphocytes/100 leukocytes in Blood by Automated counton 05-07-2023 Lymphocytes/100 WBC (Bld)14.2 %[facility] South CampusComment on above:Order Comment: Specimen Type: BLOOD SPECIMENOrdering Facility: [facility] Address:[address] [place], [place] [address]Performed By: #### 52847-1 ####[facility] LABCLIA [id number] [place] [address] [place] AMERICAMCH [Entitic mass] by Automated counton 32-17-0326GNK (RBC) [Entitic mass]29.9 usGfyjps45.0-34.0 [facility] CenterComment on above:Order Comment: Specimen Type: BLOOD SPECIMENOrdering Facility: [facility] Address:[address] [place], [place] [address]Performed By: #### 61656-5 ####[facility] LABCLIA [id number] [place] [id number] [place] AMERICAMCHC [Mass/volume] by Automated counton 70-54-4833HKIW (RBC) [Mass/Vol]32.7 g/wCVfmblf74.5-36.0[facility] CenterComment on above:Order Comment: Specimen Type: BLOOD SPECIMENOrdering Facility: [facility] Address:[address] [place], [place] [address]Performed By: #### 01414-9 ####[facility] LABCLIA [id number] [place] [address] [place] AMERICAMCV [Entitic volume] by Automated counton 08-74-6702MMR (RBC) [Entitic vol]91.3 jWWfwqtf82.0-100.0 [facility] Medical CenterComment on above:Order Comment: Specimen Type: BLOOD SPECIMENOrdering Facility: [facility] Address:[address] [place], [place] [address]Performed By: #### 32382-3 ####[facility] LABCLIA [id number] [place] [address] [place] AMERICAMagnesium SerPl-mCncon 19-49-0609Yojaclrwb [Mass/Vol]1.9 mg/dL Normal1.7-2.3FWilson Memorial HospitalComment on above:Order Comment: Specimen Type: BLOOD SPECIMENOrdering Facility: [facility] Address:[address] [place], [place] [address]Performed By: #### 13616-9, 2777-1, 25333-8 ####[facility] LABCLIA [id number] [address] [place] AMERICANeutrophils [#/volume] in Blood by Automated counton 89-57-8679Cpyiuzsrdan (Bld) [#/Vol]5.30 10*3/uLNormal 1.45-7.50[facility] Medical CenterComment on above:Order Comment: Specimen Type: BLOOD SPECIMENOrdering Facility: [facility] Address:[address] [place], [place] [address]Performed By: #### 12551-2 ####[facility] LABCLIA [id number] [place] [address] [place] AMERICANo Panel Informationon 05-07-2023 Estimated GFR (CKD-EPI)82 mL/min/1.73m???>=60[facility] Comment on above:Estimated Glomerular Filtration Rate (eGFR) is calculated using the 2020 CKD-EPI creatinine equation. This equation utilizes serum creatinine, sex, and age as parameters. The creatinine assay has traceable calibration to isotope dilution-mass spectrometry. Refer to KDIGO guidelines for clinical inte rpretation. In patients with unstable renal function, e.g. those with acute kidney injury, the eGFRmay not accurately reflect actual GFR.Immature Granulocyte # (Auto)<0.03 k/uL<0.10[facility] Medical CenterPhosphorus Level3.2 mg/dL2.7-4.8[facility] Medical CenterNucleated erythrocytes [#/volume] in Blood by Automated counton 84-34-2064Nkbqmhhut RBC (Bld) [#/Vol] 10*3/uLNormal<0.01[facility] CenterComment on above:Order Comment: Specimen Type: BLOOD SPECIMENOrdering Facility: [facility] Address:[address] [place], [place] [address]Performed By: #### 17329- 8 ####[facility] LABCLIA [id number] [place] [address] [place] [facility] HOSPITALucleated erythrocytes [Presence] in Blood by Automated counton 64-41-8596Jobgyxacz RBC Auto Ql (Bld)0.0 /100{WBC}[facility] Medical CenterPhosphate SerPl-mCncon 05-07-2023 Phosphate [Mass/Vol]3.2 mg/dLNormal2.7-4.8CCleveland Clinic Fairview HospitalComment on above:Order Comment: Specimen Type: BLOOD SPECIMENOrdering Facility: [facility] Address:[address] [place], [place] [address]Performed By: #### 72489-8, 2777-1, 94729-9 ####[facility] LABCLIA [id number] [place] [address] [place] Platelet mean volume [Entitic volume] in Blood by Automated counton 05-07-2023 Platelet mean volume (Bld) [Entitic vol]9.7 fLNormal9.0-12.7FWilson Memorial HospitalComment on above:Order Comment: Specimen Type: BLOOD SPECIMENOrdering Facility: [facility] Address:[address] [place], [place] [address]Performed By: #### 27024-7 ####[facility] LABIA [id number] [place] [address] [place] AMERICAPlatelets [#/volume] in Blood by Automated counton 11-19-3004Sttdssnnj (Bld) [#/Vol]184 10*3/rIMkoqzg928-458AghzivigpCincinnati Children'S Hospital Medical CenterComment on above:Order Comment: Specimen Type: BLOOD SPECIMENOrdering Facility: [facility] Address:[address] [place], [place] [address]Performed By: #### 70702-8 ####[facility] LABIA [id number] [place] [address] [place] AMERICASerum or plasma anion gap determinationon 97-55-2419Isami gap [Moles/Vol]11 mmol/LNormal9-18FWilson Memorial HospitalComment on above:Order Comment: Specimen Type: BLOOD SPECIMENOrdering Facility: [facility] Address:[address] [place], [place] [address]Performed By: #### 50749-4, 2777-1, 79270-7 ####[facility] LABIA [id number] [place] [address] [place] AMERICAActivated partial thromboplastin time (aPTT) in platelet poor plasma by coagulation aon 88-20-9208tLSZ Coag (PPP) [Time]27.8 s 23.0-32.4FWilson Memorial HospitalBasophils Auto (Bld) [#/Vol]on 01-83-2113Jyclvckmq (Bld) [#/Vol]10*3/uL<0.11[facility] Basophils/100 WBC Auto (Bld)on 23-97-9830Ekyjkgfwx/100 WBC (Bld)0.3 %[facility] Medical CenterBlood manual differential comment interpretation narrativeon 38-81-2360Ochekv differential comment Girma (Bld) [Interp]Auto [facility] Medical CenterCBC W Auto Differential panel (Bld)on 43-70-3711Mzymlsxxe (Bld) [#/Vol]10*3/uLNormal<0.11CC[facility] Clinic [facility] Hospital Comment on above:Order Comment: Specimen Type: BLOOD SPECIMENOrdering Facility: [facility] Address:[address] [place] [address] Performed By: #### 48732-2 ####[facility] LABCLIA [id number] [place] [address] [place] Basophils/100 WBC (Bld)0.3 %NormalMercy Health Lorain HospitalComselect specialty hospital-[place] on above: Order Comment: Specimen Type: BLOOD SPECIMENOrdering Facility: [facility] Address:[address] [place], [place] [address]Performed By: #### 81405- 8 ####[facility] LABCLIA [id number] [place] [address] [place] AMERICADifferential cell count method Nom (Bld)AutoNormalClevelMission HospitalComment on above:Order Comment: Specimen Type: BLOOD SPECIMENOrdering Facility: [facility] Address:[address] [place], [place] [address]Performed By: #### 98562-2 ####[facility] LABCLIA [id number] [place] [address] [place] AMERICAEosinophils (Bld) [#/Vol]0.10 10*3/uLNormal<0.46Mer[facility] Health Lor[facility] HospitalComselect specialty hospital-[place] on above:Order Comment: Specimen Type: BLOOD SPECIMENOrdering Facility: [facility] Address:[address] [place], [place] [address]Performed By: #### 05176-3 ####[facility] LABCLIA [id number] [place] [address] [place] AMERICAEosinophils/100 WBC (Bld)1.6 % NormalSelect Medical [facility], [place] on above:Order Comment: Specimen Type: BLOOD SPECIMENOrdering Facility: [facility] Address:[address] [place], [place] [address]Performed By: #### 37569-6 ####[facility] LABIA [id number] [place] [address] [place] AMERICAErythrocyte distribution width (RBC) [Ratio]14.0 %Normal 11.5-15.0[facility] [place] on above:Order Comment: Specimen Type: BLOOD SPECIMENOrdering Facility: [facility] Address:[address] [place], [place] [address]Performed By: #### 09922-7 ####[facility] LABIA [id number] [place] [address] [place] AMERICAHematocrit (Bld) [Volume fraction]33.8 %Low36.0-46.0 [facility] [place] on above:Order Comment: Specimen Type: BLOOD SPECIMENOrdering Facility: [facility] Address:[address] [place], [place] [address]Performed By: #### 05110-6 ####[facility] LABIA [id number] [place] [address] [place] AMERICAHemoglobin (Bld) [Mass/Vol]11.0 g/dLLow11.5-15.5CCleveland Clinic [facility] Hospital on above:Order Comment: Specimen Type: BLOOD SPECIMENOrdering Facility: [facility] Address:[address] [place], [place] [address]Performed By: #### 52519-4 ####[facility] LABIA [id number] [place] [address] [place] Immature granulocytes (Bld) [#/Vol]10*3/uLNormal<0.10[facility] Comment on above:Order Comment: Specimen Type: BLOOD SPECIMENOrdering Facility: [facility] Address:[address] [place] [address] Performed By: #### 39961-5 ####[facility] LABCLIA [id number] [place] [address] [place] Immature granulocytes/100 WBC (Bld)0.3 %NormalSelect Medical [facility], [place] on above:Order Comment: Specimen Type: BLOOD SPECIMENOrdering Facility: [facility] Address:[address] [place] [address] Performed By: #### 84926-5 ####[facility] LABCLIA [id number] [place] [address] [place] Lymphocytes (Bld) [#/Vol]1.29 10*3/uLNormal1.00-4.00[facility] Comment on above:Order Comment: Specimen Type: BLOOD SPECIMENOrdering Facility: [facility] Address:[address] [place] [address] Performed By: #### 34555-0 ####[facility] LABCLIA [id number] [place] [address] [place] Lymphocytes/100 WBC (Bld)20.4 %NormalSelect Medical [facility] Clinic [facility], [place] on above: Order Comment: Specimen Type: BLOOD SPECIMENOrdering Facility: [facility] Address:[address] [place], [place] [address]Performed By: #### 07507- 8 ####[facility] LABCLIA [id number] [place] [address] [place] AMERICAMCH (RBC) [Entitic mass]29.7 pg Ytwcyi94.0-34.0[facility] [place] on above:Order Comment: Specimen Type: BLOOD SPECIMENOrdering Facility: [facility] Address:[address] [place], [place] [address]Performed By: #### 83218-7 ####[facility] LABCLIA [id number] [address]ETMCHC (RBC) [Mass/Vol]32.5 g/dL Ukbavz07.5-36.0[facility] [place] on above:Order Comment: Specimen Type: BLOOD SPECIMENOrdering Facility: [facility] Address:[address] [place], [place] [address]Performed By: #### 33199-6 ####[facility] LABIA [id number] [address] STREETV (RBC) [Entitic vol]91.4 fL Wmwcxp62.0-100.0[facility] [place] on above:Order Comment: Specimen Type: BLOOD SPECIMENOrdering Facility: [facility] Address:[address] [place], [place] [address]Performed By: #### 21809-4 ####[facility] LABIA [id number] [place] [address] [place] AMERICAMonocytes (Bld) [#/Vol]0.47 10*3/uLNormal<0.87[facility] [place] on above:Order Comment: Specimen Type: BLOOD SPECIMENOrdering Facility: [facility] Address:[address] [place], [place] [address]Performed By: #### 42430-7 ####[facility] LABIA [id number] [place] [address] [place] AMERICAMonocytes/100 WBC (Bld)7.4 % NormalSelect Medical [facility], [place] on above:Order Comment: Specimen Type: BLOOD SPECIMENOrdering Facility: [facility] Address:[address] [place], [place] [address]Performed By: #### 37398-9 ####[facility] LABCLIA [id number] [place] [address] [place] AMERICANeutrophils (Bld) [#/Vol]4.42 10*3/uLNormal1.45-7.50[facility] [place] on above:Order Comment: Specimen Type: BLOOD SPECIMENOrdering Facility: [facility] Address:[address] [place], [place] [address]Performed By: #### 04156-5 ####[facility] LABIA [id number] [place] [address] [place] AMERICANeutrophils/100 WBC (Bld)70.0 %NormalSelect Medical [facility] Clinic [facility], [place] on above:Order Comment: Specimen Type: BLOOD SPECIMENOrdering Facility: [facility] Address:[address] [place] [address] Performed By: #### 86077-0 ####[facility] LABIA [id number] [place] [address] [place] Nucleated RBC (Bld) [#/Vol]10*3/uLNormal<0.01[facility] [place] on above:Order Comment: Specimen Type: BLOOD SPECIMENOrdering Facility: [facility] Address:[address] [place] [address] Performed By: #### 42265-7 ####[facility] LABIA [id number] [place] [address] [place] Nucleated RBC/100 WBC (Bld) [Ratio]0.0 /100 WBCNormalCCleveland Clinic Fairview Hospital Comment on above:Order Comment: Specimen Type: BLOOD SPECIMENOrdering Facility: [facility] Address:[address] [place] [address] Performed By: #### 21713-1 ####[facility] LABIA [id number] [place] [address] [place] Platelet mean volume (Bld) [Entitic vol]9.3 fLNormal9.0-12.7CCleveland Clinic [facility] Hospital on above:Order Comment: Specimen Type: BLOOD SPECIMENOrdering Facility: [facility] Address:[address] [place], [place] [address]Performed By: #### 32268-2 ####[facility] LABCLIA [id number] [address] [address] [place] Platelets (Bld) [#/Vol]167 10*3/bAQqrrws410-291LplosjpbvSelect Medical [facility], [place] on above:Order Comment: Specimen Type: BLOOD SPECIMENOrdering Facility: [facility] Address:[address] [place] [address] Performed By: #### 54050-6 ####[facility] LABIA [id number] [place] [address] [place] RBC (Bld) [#/Vol]3.70 10*6/uLLow3.90-5.20[facility] [place] on above:Order Comment: Specimen Type: BLOOD SPECIMENOrdering Facility: [facility] Address:[address] [place], [place] [address]Performed By: #### 54232-3 ####[facility]ITALIA [id number] [place] [address] [place] AMERICAWBC (Bld) [#/Vol]6.32 10*3/uLNormal3.70-11.00[facility] [place] on above:Order Comment: Specimen Type: BLOOD SPECIMENOrdering Facility: [facility] Address:[address] [place], [place] [address]Performed By: #### 55427-6 ####[facility] [id number] [address] STATES OF AMERICACONSULTon 15-09-5692JMZDGKJHIG ID: [id number] Author: SEA MCKEON DO Service: Vascular Medicine Author Type: Physician Type: Consults Filed: 05/06/2023 15:50 Note Text: [facility] STAFF PHYSICIAN NOTE OF PERSONAL INVOLVEMENT IN [...] [employer]PVI Staff Physician of Vascular Medicine (J3-5) Angiographercord splicer [facility] Afia Bull Department of Cardiovascular Medicine Section of [...] Bilateral shoulder injury before 1999 working in [employer] home Cataract of left eye Cataracts, bilateral [...] FAMILY HISTORY Problem Relation (more content not included)...NormalMercy Health Lorain Hospital Comprehensive metabolic 2000 panelon 26-38-8124Fvrscpw [Mass/Vol]3.1 g/dLLow 3.9-4.9CCleveland Clinic Fairview HospitalComment on above:Order Comment: Specimen Type: BLOOD SPECIMENOrdering Facility: [facility] Address:[address] [place], [place] [address]Kwbrutpka By: #### 22622-2, 2777-1, 02555-4 ####[facility] LABCLIA [id number] [address] [address] [place] AMERICAALP [Catalytic activity/Vol]46 U/GUnlavo42-147NnwanubxjSelect Medical [facility], [place] on above:Order Comment: Specimen Type: BLOOD SPECIMENOrdering Facility: [facility] Address:[address] [place], [place] [address]Performed By: #### 42522-1, 277-1, 77423-9 ####[facility] LABCLIA [id number] [address] [place] AMERICAALT [Catalytic activity/Vol]7 U/L Normal7-38[facility] [place] on above:Order Comment: Specimen Type: BLOOD SPECIMENOrdering Facility: [facility] Address:[address] [place], [place] [address]Performed By: #### 25902-5, 277-, 94860-0 ####[facility] LABCLIA [id number] [address] [place] AMERICAAnion gap [Moles/Vol]10 mmol/L Normal9-18[facility] [place] on above:Order Comment: Specimen Type: BLOOD SPECIMENOrdering Facility: [facility] Address:[address] [place], [place] [address]Performed By: #### 83057-9, 27709-09, 64421-9 ####[facility] LABCLIA [id number] [address] [address] [place] AMERICAAST [Catalytic activity/Vol]14 U/OYfmhks76-44RiprjlsvgSelect Medical [facility] [place] on above:Order Comment: Specimen Type: BLOOD SPECIMENOrdering Facility: [facility] Address:[address] [place], [place] [address]Performed By: #### 28753-9, 277-1, 34955-8 ####[facility] LABCLIA [id number] [address] [place] AMERICABilirubin [Mass/Vol]0.3 mg/dL Normal0.2-1.3CCleveland Clinic [facility] Hospital on above:Order Comment: Specimen Type: BLOOD SPECIMENOrdering Facility: [facility] Address:[address] [place], [place] [address]Performed By: #### 38957-2, 2777-1, 14247-3 ####[facility] LABCLIA [id number] [address] [place] AMERICACalcium [Mass/Vol]8.7 mg/dLNormal 8.5-10.2CC[facility] Clinic [facility] on above:Order Comment: Specimen Type: BLOOD SPECIMENOrdering Facility: [facility] Address:[address] [place], [place] [address]Performed By: #### 41404-2, 27709-09, 09482-5 ####[facility] LABCLIA [id number] [address] [place] AMERICAChloride [Moles/Vol]102 mmol/L Rhaeei63-863IadxarnweSelect Medical [facility] Clinic [facility], [place] on above:Order Comment: Specimen Type: BLOOD SPECIMENOrdering Facility: [facility] Address:[address] [place], [place] [address]Performed By: #### 38146-3, 277-, 32021-9 ####[facility] LABCLIA [id number] VILLE [address] [place] AMERICACO2 [Moles/Vol]23 mmol/LNormal 22-30[facility] [place] on above:Order Comment: Specimen Type: BLOOD SPECIMENOrdering Facility: [facility] Address:[address] [place], [place] [address]Performed By: #### 17134-8, 2777-1, 67443-4 ####[facility] LABCLIA [id number] VILLE [address] [place] AMERICACreatinine [Mass/Vol]0.70 mg/dL Normal0.58-0.96[facility] [place] on above:Order Comment: Specimen Type: BLOOD SPECIMENOrdering Facility: [facility] Address:[address] [place], [place] [address]Performed By: #### 82211-9, 2777-1, 85094-4 ####[facility] LABIA [id number] [place] [address] [facility] OF AMERICACreatinine and Glomerular filtration rate.predicted panel (S/P/Bld)86 mL/min/1.73m???Normal>=60[facility] [place] on above:Order Comment: Specimen Type: BLOOD SPECIMENOrdering Facility: [facility] Address:[address] [place], [place] [address]Result Comment: Estimated Glomerular Filtration Rate (eGFR) is calculated using the 2020 CKD-EPI creatinine equation. This equation utilizes serum creatinine, sex, and age as parameters. The creatinine assay has traceable calibration to isotope dilution-mass spectrometry. Refer to KDIGO guidelines for clinical interpretation. In patients with unstable renal function, e.g. those with acute kidney injury, the eGFR may not accurately reflect actual GFR.Performed By: #### 35499-7, 2776-03, 13386-5 ####[facility] LABIA [id number] VILLE [address] [place] AMERICAGlucose [Mass/Vol]87 mg/gYArghjy07-04LluzneizbSelect Medical [facility], [place] on above:Order Comment: Specimen Type: BLOOD SPECIMENOrdering Facility: [facility] Address:[address] [place], [place] [address]Result Comment: The [place] Diabetes Association (ADA) provides guidance for cutoff [...] Standards of Medical Care in Diabetes 2016, [place] [employer] Association. Diabetes Care. 2016.39(Suppl 1).Performed By: #### 02200-3, 2776-03, ####[facility] LABCLIA [id number] [address] [place] AMERICAPotassium [Moles/Vol] 3.7 mmol/LNormal3.7-5.1CC[facility] Clinic [facility] on above:Order Comment: Specimen Type: BLOOD SPECIMENOrdering Facility: [facility] Address:[address] [place], [place] [address]Performed By: #### 83931-0, 2776-03, ####[facility] LABCLIA [id number] [address] [place] AMERICAProtein [Mass/Vol]5.4 g/dLLow 6.3-8.0[facility] [place] on above:Order Comment: Specimen Type: BLOOD SPECIMENOrdering Facility: [facility] Address:[address] [place], [place] [address]Performed By: #### 14979-9, 2776-03, ####[facility] LABCLIA [id number] [address] [place] AMERICASodium [Moles/Vol]135 mmol/LLow 136-144[facility] [place] on above:Order Comment: Specimen Type: BLOOD SPECIMENOrdering Facility: [facility] Address:[address] [place], [place] [address]Performed By: #### 17632-0, 2776-03, ####[facility] LABCLIA [id number] [address] [address] [place] AMERICAUrea nitrogen [Mass/Vol]15 mg/dL Normal7-21[facility] [place] on above:Order Comment: Specimen Type: BLOOD SPECIMENOrdering Facility: [facility] Address:[address] [place], [place] [address]Performed By: #### 07723-0, 2777-1, 96736-8 ####[facility] LABCLIA [id number] AVENUEDESK [place] [address] [place] AMERICAEosinophils/100 WBC Auto (Bld)on 31-20-1075Nrxzslmjetc/100 WBC (Bld)1.6 %[facility] Erythrocyte distribution width Auto (RBC) [Ratio]on 89-55-5489Pbzpuxfbugx distribution width (RBC) [Ratio]14.0 %11.5-15.0[facility] Hematocrit Auto (Bld) [Volume fraction]on 37-22-6164Klkpiuffkt (Bld) [Volume fraction]33.8 %36.0-46.0[facility] Medical CenterHemoglobin [Mass/volume] in Bloodon 71-04-4594Gjavdchypd (Bld) [Mass/Vol]11.0 g/dL11.5-15.5 [facility] Medical CenterINR in Platelet poor plasma by Coagulation assayon 68-32-6143HZE Coag (PPP) [Relative time]1.0 {INR}0.9-1.3FWilson Memorial HospitalComment on above:Vitamin K Antagonist (VKA) Therapeutic Range: INR 2 to 3 (Target INR of 2.5)Note: For patients treated with VKA drugs, such as warfarin, the [place] [employer] 2012 Guideline recommends a therapeutic INR range of 2 to 3 (target INR of 2.5). This recommendation includes high-risk patients with antiphospholipid syndrome with previous arterial or venous thromboembolism, current-generation mechanical or bioprosthetic aortic heart valve replacement.Note: Patients with mechanical aor tic valve replacement and additional risk factors for thromboembolic events (atrial fibrillation, previous thromboembolism, LV dysfunction, hypercoagulable conditions) or an older generation mechanical AVR (i.e., ball in-Cage) or any mechanical MVR should have a INR therapeutic range of 2.5 to 3.5 (target INR of 3).Dakotah GH, et al. Chest 2012, 141:7S-47SNishimura RA, et al. [facility] 2017, 70: 252-289Laboratory - Chemistry and Chemistry - challengeon 49-86-1384Kehtbla [Mass/Vol]3.1 g/dL3.9-4.9[facility] Medical CenterALP [Catalytic activity/Vol]46 U/F84-859ExpaxgksgCincinnati Children'S Hospital Medical CenterALT [Catalytic activity/Vol]7 U/L7-38[facility] Medical CenterAST [Catalytic activity/Vol]14 U/O36-52WaoaynuahCincinnati Children'S Hospital Medical CenterBilirubin [Mass/Vol]0.3 mg/dL0.2-1.3FWilson Memorial HospitalCalcium [Mass/Vol]8.7 mg/dL 8.5-10.2FWilson Memorial HospitalChloride [Moles/Vol]102 mmol/L97-105 [facility] Medical CenterCO2 [Moles/Vol]23 mmol/L68-33WvriwbfzkCincinnati Children'S Hospital Medical CenterCreatinine [Mass/Vol]0.70 mg/dL0.58-0.96[facility] CenterGlucose [Mass/Vol]87 mg/jR72-61ApbmnwekdCincinnati Children'S Hospital Medical Center Comment on above:The [place] Diabetes Association (ADA) provides guidance for cutoff values for fasting glucose andrandom glucose. The ADA defines fasting as no caloric intake for at least 8 hours. Fasting plasma glucose results between 100 to 125 mg/dL indicate increased risk for diabetes (prediabetes).Fasting pl asma glucose results greater than or equal to 126 mg/dL meet the criteria for diagnosis of diabetes. In the absence of unequivocal hyperglycemia, results should be confirmed by repeat testing. In a patient with classic symptoms of hyperglycemia or hyperglycemic crisis, random plasma glucose resultsgreater than or equal to 200 mg/dL meet the criteria for diagnosis of diabetes.Reference: Standardsof Medical Care in Diabetes 2016, [place] Diabetes Association. Diabetes Care. 2016.39(Suppl 1).Magnesium [Mass/Vol]1.8 mg/dL1.7-2.3FWilson Memorial HospitalPotassium [Moles/Vol]3.7 mmol/L3.7-5.1FWilson Memorial HospitalProtein [Mass/Vol]5.4 g/dL6.3-8.0[facility] Sodium [Moles/Vol]135 mmol/F047-100KrvxnucrtCincinnati Children'S Hospital Medical CenterUrea nitrogen [Mass/Vol]15 mg/dL7-21[facility] [facility] CenterLabor[facility] - Hematology and Cell countson 06-38-6749Qudhwtykxnp (Bld) [#/Vol]0.10 10*3/uL <0.46[facility] CenterImmature granulocytes/100 WBC (Bld)0.3 % [facility] Medical CenterLeukocytes [#/volume] corrected for nucleated erythrocytes in Blood by Automated counon 05-45-0281UVB corrected for nucl RBC Auto (Bld) [#/Vol]6.32 k/uL3.70-11.00[facility] Lymphocytes Auto (Bld) [#/Vol]on 26-95-0216Wukqjyuyxuw (Bld) [#/Vol]1.29 10*3/uL 1.00-4.00[facility] CenterLymphocytes/100 WBC Auto (Bld)on 61-03-3247Efdckcdrbag/100 WBC (Bld)20.4 %[facility] Medical CenterMCH Auto (RBC) [Entitic mass]on 80-52-8656EZN (RBC) [Entitic mass]29.7 pg26.0-34.0 [facility] CenterMCHC Auto (RBC) [Mass/Vol]on 97-20-3375VMBF (RBC) [Mass/Vol]32.5 g/dL30.5-36.0[facility] Medical CenterMCV Auto (RBC) [Entitic vol]on 71-16-6369EIB (RBC) [Entitic vol]91.4 fL80.0-100.0 [facility] Medical CenterMagnesium SerPl-mCncon 47-13-9610Paguopohb [Mass/Vol]1.8 mg/dLNormal1.7-2.3CCleveland Clinic [facility] on above:Order Comment: Specimen Type: BLOOD SPECIMENOrdering Facility: [facility] Address:[address] [place], [place] [id number] By: #### 52011- 9, 2777-1, 12650-1 ####[facility] LABCLIA [id number] [facility] [place] [address] [place] AMERICAMonocytes Auto (Bld) [#/Vol]on 92-15-7695Kvjbhtjrv (Bld) [#/Vol]0.47 10*3/uL<0.87[facility] CenterMonocytes/100 WBC Auto (Bld)on 88-36-6774Ksuwkcdep/100 WBC (Bld) 7.4 %[facility] Medical CenterNeutrophils Auto (Bld) [#/Vol]on 73-28-9132Jcsuovjorpq (Bld) [#/Vol]4.42 10*3/uL1.45-7.50[facility] CenterNeutrophils/100 WBC Auto (Bld)on 22-13-6186Cytpooiqlyc/100 WBC (Bld)70.0 %[facility] Medical CenterNo Panel Informationon 05-06-2023 Estimated GFR (CKD-EPI)86 mL/min/1.73m???>=60[facility] Comment on above:Estimated Glomerular Filtration Rate (eGFR) is calculated using the 2020 CKD-EPI creatinine equation. This equation utilizes serum creatinine, sex, and age as parameters. The creatinine assay has traceable calibration to isotope dilution-mass spectrometry. Refer to KDIGO guidelines for clinical inte rpretation. In patients with unstable renal function, e.g. those with acute kidney injury, the eGFRmay not accurately reflect actual GFR.Immature Granulocyte # (Auto)<0.03 k/uL<0.10[facility] Medical CenterPhosphorus Level3.4 mg/dL2.7-4.8[facility] CenterNucleated RBC Auto (Bld) [#/Vol]on 97-18-3106Zyklvphtn RBC (Bld) [#/Vol]10*3/uL<0.01[facility] Medical CenterNucleated erythrocytes [Presence] in Blood by Automated counton 62-95-0769Ondqkkfhw RBC Auto Ql (Bld)0.0 /100{WBC}[facility] Medical CenterPT panel Coag (PPP)on 24-94-3464FNN Coag (PPP) [Relative time]1.0 {INR} Normal0.9-1.3[facility] ClevelandComment on above:Order Comment: Specimen Type: BLOOD SPECIMENOrdering Facility: [facility] Address:[address] [place], [place] [address]Result Comment: Vitamin K Antagonist (VKA) Therapeutic Range: INR 2 to 3 (Target INR of 2.5) Note: For patients treated with VKA drugs, such as warfarin, the [place] [employer] 2012 Guideline recommends [...] Chest 2012, 141:7S-47S Maribel RA, et al. [facility] 2017, 70: 252-289Performed By: #### 93058-3, 01962-7 ####[facility] LABIA [id number] [place] [address] [place] AMERICAPT Coag (PPP) [Time]10.7 sNormal 9.7-13.0[facility] on above:Order Comment: Specimen Type: BLOOD SPECIMENOrdering Facility: [facility] Address:[address] [place] [id number] By: #### 36948-8, 77106-2 ####[facility] LABIA [id number] [place] [address] [place] AMERICAPhosphate SerPl-mCncon 83-54-4589Ocokardhx [Mass/Vol]3.4 mg/dLNormal2.7-4.8CC[facility] on above:Order Comment: Specimen Type: BLOOD SPECIMENOrdering Facility: [facility] Address:[address] [place], [place] [address]Performed By: #### 01105- 9, 2777-1, 25156-9 ####[facility] LABCLIA [id number] [address] [place] AMERICAPlatelet mean volume Auto (Bld) [Entitic vol]on 00-67-2568Akcwiiex mean volume (Bld) [Entitic vol]9.3 fL9.0-12.7FWilson Memorial HospitalPlatelets Auto (Bld) [#/Vol]on 23-67-6490Uzxwivzic (Bld) [#/Vol]167 10*3/oP315-596VqvyscjzzCincinnati Children'S Hospital Medical CenterProthrombin time (PT)on 90-83-1209RD Coag (PPP) [Time]10.7 s9.7-13.0 [facility] Medical CenterRBC Auto (Bld) [#/Vol]on 59-98-6226RDF (Bld) [#/Vol]3.70 10*6/uL3.90-5.20[facility] Memorial Hospitalerum or plasma anion gap determinationon 09-86-5235Ripor gap [Moles/Vol]10 mmol/L9-18FWilson Memorial HospitalaPTT PPPon 22-70-1254sFEW Coag (PPP) [Time]27.8 sNormal 23.0-32.4CCleveland Clinic Fairview HospitalComment on above:Order Comment: Specimen Type: BLOOD SPECIMENOrdering Facility: [facility] Address:[address] [place], [place] [address]Performed By: #### 94121-4, 48519-6 ####[facility] [id number] [place] [address] [place] AMERICACONSULT PROGon 70-48-7703GTHHAMW PROGHNO ID: [id number] Author: RUFINO HOUSTON DO Service: Neurology Stroke Author Type: Resident Type: Consult Progress Note Filed: 05/05/2023 19:23 Note Text: Attestation signed by Rufino Houston DO at 05/05/2023 7:23 PM [facility] STAFF PHYSICIAN NOTE OF PERSONAL INVOLVEMENT IN [...] 05, 2023 TIME of SERVICE: 11:30 AM NEURO STROKE CONSULT PROGRESS NOTE SERVICE DATE: [...] facial droop appreciated. Mot (more content not included)...NormalMercy Health Lorain HospitalECG01on 38-29-7733WNW67Itmhsvdzsmg Rate : 81 BPM Atrial Rate : 81 BPM P-R Interval : 180 ms QRS Duration : 80 ms Q-T Interval : 380 ms QTC Calculation(Bazett) : 441 ms Calculated P Firebaugh : 63 degrees Calculated R Firebaugh : 2 degrees Calculated T Firebaugh : 41 degrees NORMAL SINUS RHYTHM NORMAL ECG Confirmed by MD MIKE, PhD, MAGI ([id number]) on 05/11/2023 8:03:14 AM NAME : CARLY MARCELINO PID : [id number] : 1940 Gender : Female Race : ORD : Procedure Date : May 05 2023 16:26:53 Edit Date : May 11 2023 08:03:16 Diagnosis: NORMAL SINUS RHYTHM NORMAL ECG Confirmed by MD MIKE, PhD, MAGI ([id number]) on 05/11/2023 8:03:14 AM Test Reason : Location : [address] [place] [address] Overread By : MD MIKE, PhD,MAGI Edited By : MD MIKE, PhD,MAGI Referred By : STACIA DWYER Acquired by : CALDERON HINDSTrinity Health System [facility] 46-71-2735JTSKBZS [facility]IFREDPONDVIL[facility] ID: [id number] Author: OSMANY GOYAL MD Service: Critical Care Author Type: Physician Type: Chg in Clinical Condition Filed: 05/05/2023 17:56 Note Text: MEDICAL EMERGENCY TEAM AMET CODE STATUS: Code Status: Full Code BACKGROUND 82 year old R handed female with a PMH of seizure disorder (forceps delivery at , unknown last seizure), HTN, 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 Line, Drain, Airway Placed by: [facility] Type of Peripheral Line: Short Location: Right Insertion Site: Forearm Size: 20 Gauge Peripheral [facility] Short Right Hand 20 Gauge (Active) No placement date or time found. Line, Drain, Airway Placed by: [facility] Type of Peripheral Line: Short Location: Right [...] Marcelino DATE: May 05, 2023 TIME: 5:51 PMNormalMercy Health Lorain HospitalTHERAPY NTon 29-71-2226FDTDVDQ NT HNO ID: [id number] Author: ZULEIMA ROCKWELL OT/L Service: Occupational Therapy Author Type: Occupational Therapist Type: Therapy (PT/OT/Speech/Resp) Filed: 05/05/2023 16:24 Note Text: Occupational Therapy Evaluation Summary SERVICE DATE: 05/05/2023 SERVICE TIME: 1542 to 1608 ROOM: [address] OT 6 Clicks Score: 19 DISCHARGE [...] Marcelino DATE: May 05, 2023 TIME: 4:24 [facility] 40-69-1778JLDOHE HEALTHHNO ID: [id number] Author: CHIARA SANCHEZ Chaplain Service: Healing Service Author Type: Type: Allied Health Filed: 05/04/2023 15:16 Note Text: HEALING SERVICES THERAPY NOTE SERVICE DATE: 05/04/2023 SERVICE TIME: 12:33 INTERVENTIONAL FOCUS: Emotional Support Other: Received Serious Diagnosis Visit With: Patient Urgency of Visit: Routine Type of Visit: Patient Family Not Available Patient was having a test. Follow up as circumstances allow . [place] [phone] for further support. SIGNATURE: Chaplain Navi PATIENT NAME: Carly Marcelino DATE: May 04, 2023 TIME: 3:14 PM PAGER/CONTACT #: [phone] Clinic Fairview HospitalActivated partial thromboplastin time (aPTT) in platelet poor plasma by coagulation aon 77-69-7416eTMP Coag (PPP) [Time]28.9 s23.0-32.4FWilson Memorial Hospital Automated urine specific gravity by refractometryon 97-76-6971Jquirlcc gravity Refractometry automated (U) [Rel density]1.0141.005-1.030[facility] Medical CenterBasophils Auto (Bld) [#/Vol]on 33-12-2372Jobwxzobi (Bld) [#/Vol] 0.04 10*3/uL<0.11[facility] Medical CenterBasophils/100 WBC Auto (Bld)on 87-84-6696Udjrkubsx/100 WBC (Bld)0.6 %[facility] Bilirubin Auto test strip (U) [Mass/Vol]on 35-80-8717Lingbmeps (U) [Mass/Vol] NegativeNegativeCincinnati Children'S Hospital Medical CenterBlood manual differential comment interpretation narrativeon 29-00-7866Llrmhs differential comment Girma (Bld) [Interp]AutoCincinnati Children'S Hospital Medical CenterCASE MGT INIT ASSESon 15-75-6609RMUK MGT INIT [facility] ID: [id number] Author: COLEEN HOWARD, RN Service: Nursing Author Type: Registered Nurse [...] Will;Other Document: See Comment (Durable Power of Manufacturing Project Engineer) In Chart: Yes Up To Date and [...] you manage to accomplish the following: Independent: Ambulation;Bathe/Shower;Dress;Meals/Meal Prep;Going to the bathroom;Medication Management;Transportation to appointments/community Current Services/Equipment Current Post-Acute Service(s): DME Current DME Type: Standard walker, Other: See Comment (shower bars) Discharge Planning Patient Goal(s): Independent living, Be able to go home, General wellness [place] of Choice Explained: [place] of Choice Given: No Reason Not Given: [...] who lives alone in a home in [place], [place]. Pt is independent , has 2 steps inside of home, and has no medication concerns. She does have a walker and bars inside of the home if needed. 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 and she stays with and [...] 04, 2023 TIME: 11:42 AM CONTACT #: [id number]le Hospital W Auto Differential panel (Bld)on 97-06-6232Hqtacslmc (Bld) [#/Vol]0.04 10*3/uLNormal <0.11CCleveland Clinic Fairview HospitalComment on above:Order Comment: Specimen Type: BLOOD SPECIMENOrdering Facility: [facility] Address:[address] [place], [place] [address]Performed By: #### 64813-8 ####[facility] LABCLIA [id number] [place] [address] [place] AMERICABasophils/100 WBC (Bld)0.6 %NormalMercy Health Lorain Hospital Comment on above:Order Comment: Specimen Type: BLOOD SPECIMENOrdering Facility: [facility] Address:[address] [place] [address] Performed By: #### 74078-7 ####[facility] LABCLIA [id number] [place] [address] [place] Differential cell count method Nom (Bld)AutoNormalCCleveland Clinic Fairview Hospital Comment on above:Order Comment: Specimen Type: BLOOD SPECIMENOrdering Facility: [facility] Address:[address] [place] [address] Performed By: #### 86412-1 ####[facility] LABCLIA [id number] [place] [address] [place] FRNAK Eosinophils (Bld) [#/Vol]0.18 10*3/uLNormal<0.46[facility] Comment on above:Order Comment: Specimen Type: BLOOD SPECIMENOrdering Facility: [facility] Address:[address] [place] [address] Performed By: #### 37206-7 ####[facility] LABCLIA [id number] [place] [address] [place] Eosinophils/100 WBC (Bld)2.5 %NormalSelect Medical [facility] Clinic [facility] [place] on above: Order Comment: Specimen Type: BLOOD SPECIMENOrdering Facility: [facility] Address:[address] [place], [place] [address]Performed By: #### 95754- 8 ####[facility] LABIA [id number] [place] [address] [place] AMERICAErythrocyte distribution width (RBC) [Ratio]14.1 %Whzclj37.5-15.0[facility] on above: Order Comment: Specimen Type: BLOOD SPECIMENOrdering Facility: [facility] Address:[address] [place], [place] [address]Performed By: #### 85051- 8 ####[facility] LABIA [id number] [place] [address] [place] AMERICAHematocrit (Bld) [Volume fraction]36.2 %Bolzal35.0-46.0[facility] on above:Order Comment: Specimen Type: BLOOD SPECIMENOrdering Facility: [facility] Address:[address] [place], [place] [address]Performed By: #### 33671- 8 ####[facility] LABIA [id number] [place] [address] [place] AMERICAHemoglobin (Bld) [Mass/Vol]11.7 g/iBVwjcbf25.5-15.5CC[facility] Clinic [facility] on above:Order Comment: Specimen Type: BLOOD SPECIMENOrdering Facility: [facility] Address:[address] [place], [place] [address]Performed By: #### 53114-5 ####[facility] LABIA [id number] [place] [address] [place] AMERICAImmature granulocytes (Bld) [#/Vol]10*3/uLNormal<0.10[facility] on above:Order Comment: Specimen Type: BLOOD SPECIMENOrdering Facility: [facility] Address:[address] [place], [place] [address]Performed By: #### 47438- 8 ####[facility] LABCLIA [id number] [place] [address] [place] AMERICAImmature granulocytes/100 WBC (Bld)0.3 %NormalSelect Medical [facility] Clinic [facility] [place] on above:Order Comment: Specimen Type: BLOOD SPECIMENOrdering Facility: [facility] Address:[address] [place], [place] [address]Performed By: #### 31114-0 ####[facility] LABIA [id number] [place] [address] [place] AMERICALymphocytes (Bld) [#/Vol]1.46 10*3/uLNormal1.00-4.00[facility] on above:Order Comment: Specimen Type: BLOOD SPECIMENOrdering Facility: [facility] Address:[address] [place], [place] [address]Performed By: #### 20823-7 ####[facility] LABIA [id number] [place] [address] [place] AMERICALymphocytes/100 WBC (Bld)20.5 % NormalSelect Medical [facility], [place] on above:Order Comment: Specimen Type: BLOOD SPECIMENOrdering Facility: [facility] Address:[address] [place], [place] [address]Performed By: #### 05211-2 ####[facility] LABIA [id number] [place] [address] [place] AMERICAMC (RBC) [Entitic mass]29.8 hzDbjjbc94.0-34.0[facility] on above:Order Comment: Specimen Type: BLOOD SPECIMENOrdering Facility: [facility] Address:[address] [place], [place] [address]Performed By: #### 67809-0 ####[facility] LABIA [id number] [place] [address] [place] MCHC (RBC) [Mass/Vol]32.3 g/mVJhefxp00.5-36.0[facility] on above:Order Comment: Specimen Type: BLOOD SPECIMENOrdering Facility: [facility] Address:[address] [place] [address] Performed By: #### 30760-1 ####[facility] LABIA [id number] [place] [address] [place] MCV (RBC) [Entitic vol]92.3 wOAwjtnv12.0-100.0[facility] on above:Order Comment: Specimen Type: BLOOD SPECIMENOrdering Facility: [facility] Address:[address] [place] [address] Performed By: #### 85556-5 ####[facility] LABIA [id number] [place] [address] [place] Monocytes (Bld) [#/Vol]0.57 10*3/uLNormal<0.87[facility] on above:Order Comment: Specimen Type: BLOOD SPECIMENOrdering Facility: [facility] Address:[address] [place] [address] Performed By: #### 25730-4 ####[facility] LABIA [id number] [place] [address] [place] Monocytes/100 WBC (Bld)8.0 %NormalSelect Medical [facility] [place] on above: Order Comment: Specimen Type: BLOOD SPECIMENOrdering Facility: [facility] Address:[address] [place], [place] [address]Performed By: #### 34054- 8 ####[facility] LABIA [id number] [place] [address] [place] AMERICANeutrophils (Bld) [#/Vol]4.85 10*3/uLNormal1.45-7.50[facility] on above:Order Comment: Specimen Type: BLOOD SPECIMENOrdering Facility: [facility] Address:[address] [place], [place] [address]Performed By: #### 72465-2 ####[facility] LABCLIA [id number] [place] [address] [place] AMERICANeutrophils/100 WBC (Bld)68.1 % NormalMercy Health Lorain HospitalComment on above:Order Comment: Specimen Type: BLOOD SPECIMENOrdering Facility: [facility] Address:[address] [place], [place] [address]Performed By: #### 19593-8 ####[facility] LABCLIA [id number] [place] [address] [place] AMERICANucleated RBC (Bld) [#/Vol]10*3/uLNormal<0.01[facility] on above:Order Comment: Specimen Type: BLOOD SPECIMENOrdering Facility: [facility] Address:[address] [place], [place] [address]Performed By: #### 74644-4 ####[facility] LABCLIA [id number] [place] [address] [place] Nucleated RBC/100 WBC (Bld) [Ratio]0.0 /100 WBCNormalClevelMission Hospital Comment on above:Order Comment: Specimen Type: BLOOD SPECIMENOrdering Facility: [facility] Address:[address] [place] [address] Performed By: #### 55360-3 ####[facility] LABCLIA [id number] [place] [address] [place] Platelet mean volume (Bld) [Entitic vol]9.3 fLNormal9.0-12.7CCleveland Clinic [facility] on above:Order Comment: Specimen Type: BLOOD SPECIMENOrdering Facility: [facility] Address:[address] [place], [place] [address]Performed By: #### 00025-9 ####[facility] LABCLIA [id number] [place] [address] [place] Platelets (Bld) [#/Vol]177 10*3/eMNwdgmq959-106CivjgkwcgSelect Medical [facility] [place] on above:Order Comment: Specimen Type: BLOOD SPECIMENOrdering Facility: [facility] Address:[address] [place] [address] Performed By: #### 72887-8 ####[facility]OSPITALIA [id number] [place] [address] [place] RBC (Bld) [#/Vol]3.92 10*6/uLNormal3.90-5.20[facility] on above:Order Comment: Specimen Type: BLOOD SPECIMENOrdering Facility: [facility] Address:[address] [place], [place] [address]Performed By: #### 58880-0 ####[facility] [id number] [place] [address] [place] AMERICAWBC (Bld) [#/Vol]7.12 10*3/uLNormal3.70-11.00[facility] on above:Order Comment: Specimen Type: BLOOD SPECIMENOrdering Facility: [facility] Address:[address] [place], [place] [address]Performed By: #### 73064-7 ####[facility] [id number] [place] [address] [place] AMERICACONSULTon 70-62-5224GYGVDFIFTW ID: [id number] Author: KRISSY HAMEED MD Service: Neurology Stroke Author Type: Physician Type: Consults Filed: 05/04/2023 12:17 Note Text: NEURO STROKE INITIAL CONSULT SERVICE DATE: 05/04/2023 SERVICE TIME: 11:25 AM REQUESTING PHYSICIAN: Jass Penn MD [[id number]] PCP: Hardeep Mckenzie DO REASON FOR STROKE EVALUATION: Headache, R Frontal SAH Subjective HPI: Ms. 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 AED therapy deferred due [...] LDL 58. Pre-admission Pre-morbid mRS: Premorbid Modified Tom Score: 0 - No symptoms at all [...] NEUROMA EACH x3 LASER SURGERY OF EYE 2003 correction of arterial hemmorhage left eye PAST [...] COLONSCOPY NOT HIGH RISK 2010 TONSILLECTOMY HX 2002 TOTAL KNEE REPLACEMENT 2004 bilateral kneee Social [...] Acid Analo* tremors Amlodip (more content not included)...NormalFayette County Memorial Hospital BRAIN WO IVCONon 60-09-0571RN BRAIN WO IVCON* * *Final Report* * * DATE OF EXAM: May 04 2023 6:58PM [facility] [place] [address]504 - CT BRAIN WO IVCON / [...] 05/04/2023, outside hospital CT head 05/03/2023 RESULT: Travel Journalist (topogram) images: No additional findings. Post-operative change: [...] in technique. No other significant interval change. Shingle Carrier: [facility] CENTERShon Transcribe Date/Time: May 04 2023 7:13P Dictated by : MERCEDES ALDANA MD This examination was interpreted and the report reviewed and electronically signed by: MERCEDES ALDANA MD on May 04 2023 7:19PM EST [id number] Health Lorain HospitalCannabinoids [Mass/volume] in Urine by Confirmatory methodon 16-82-7187Dafyihekuwdg Confirm (U) [Mass/Vol] NegativeNegativeCincinnati Children'S Hospital Medical CenterComment on above:Cutoff threshold at 50 ng/mL.Color Auto (U)on 64-93-4102Qayvl (U)YellowYellowCincinnati Children'S Hospital Medical CenterComprehensive metabolic 2000 panelon 57-86-2047Xlevwvu [Mass/Vol]3.4 g/dLLow3.9-4.9CCleveland Clinic [facility]on Hospital on above:Order Comment: Specimen Type: BLOOD SPECIMENOrdering Facility: [facility] Address:[address] [place], [place] [address]Performed By: #### 60852- 8, 44990-8, 2776- ####[facility] LABCLIA [id number] [address] [place] AMERICAALP [Catalytic activity/Vol]55 U/FQzxjig43-897CtipmngyeSelect Medical [facility] [place] on above:Order Comment: Specimen Type: BLOOD SPECIMENOrdering Facility: [facility] Address:[address] [place], [place] [address]Performed By: #### 05617- 8, 74393-2, 2776- ####[facility] LABCLIA [id number] [address] [place] AMERICAALT [Catalytic activity/Vol]6 U/LLow7-38[facility] on above:Order Comment: Specimen Type: BLOOD SPECIMENOrdering Facility: [facility] Address:[address] [place], [place] [address]Performed By: #### 97065- 8, 76386-1, 2776-03 ####[facility] LABCLIA [id number] [address] [address] [place] OF AMERICAAnion gap [Moles/Vol] 11 mmol/LNormal9-18[facility] [place] on above:Order Comment: Specimen Type: BLOOD SPECIMENOrdering Facility: [facility] Address:[address] [place], [place] [address]Performed By: #### 68383-9, 88462-9, 2776- ####[facility] LABCLIA [id number] [address] [place] AMERICAAST [Catalytic activity/Vol]15 U/MKseqmc54-54PmohlubsuSelect Medical [facility], [place] on above:Order Comment: Specimen Type: BLOOD SPECIMENOrdering Facility: [facility] Address:[address] [place], [place] [address]Performed By: #### 41730-4, 09133-1, 2776- ####[facility] LABCLIA [id number] [address] [place] AMERICABilirubin [Mass/Vol]0.2 mg/dL Normal0.2-1.3CC[facility] on above:Order Comment: Specimen Type: BLOOD SPECIMENOrdering Facility: [facility] Address:[address] [place], [place] [address]Performed By: #### 42386-7, 32057-2, 2776-03 ####[facility] LABCLIA [id number] STATES OF AMERICACalcium [Mass/Vol]9.5 mg/dLNormal 8.5-10.2CC[facility] on above:Order Comment: Specimen Type: BLOOD SPECIMENOrdering Facility: [facility] Address:[address] [place], [place] [address]Performed By: #### 28331-9, 73722-3, 2776-03 ####[facility] LABCLIA [id number] [address] [place] AMERICAChloride [Moles/Vol]102 mmol/L Yhfxez76-321PtfkwrpxfSelect Medical [facility] [place] on above:Order Comment: Specimen Type: BLOOD SPECIMENOrdering Facility: [facility] Address:[address] [place], [place] [address]Performed By: #### 80668-5, 22994-6, 2776- ####[facility] LABCLIA [id number] [place] [address] [place] AMERICACO2 [Moles/Vol]24 mmol/LNormal 22-30[facility] [place] on above:Order Comment: Specimen Type: BLOOD SPECIMENOrdering Facility: [facility] Address:[address] [place], [place] [address]Performed By: #### 58218-2, , 2776-03 ####[facility] LABCLIA [id number] [address] [place] AMERICACreatinine [Mass/Vol]0.78 mg/dL Normal0.58-0.96[facility] [place] on above:Order Comment: Specimen Type: BLOOD SPECIMENOrdering Facility: [facility] Address:[address] [place], [place] [address]Performed By: #### 83891-9, , 2776-03 ####[facility] LABIA [id number] [address] [place] AMERICACreatinine and Glomerular filtration rate.predicted panel (S/P/Bld)75 mL/min/1.73m???Normal>=60[facility] [place] on above:Order Comment: Specimen Type: BLOOD SPECIMENOrdering Facility: [facility] Address:[address] [place], [place] [address]Result Comment: Estimated Glomerular Filtration Rate (eGFR) is calculated using the 2020 CKD-EPI creatinine equation. This equation utilizes serum creatinine, sex, and age as parameters. The creatinine assay has traceable calibration to isotope dilution-mass spectrometry. Refer to KDIGO guidelines for clinical interpretation. In patients with unstable renal function, e.g. those with acute kidney injury, the eGFR may not accurately reflect actual GFR.Performed By: #### 56187-6, , 2776-03 ####[facility] LABCLIA [id number] [address] [place] AMERICAGlucose [Mass/Vol]96 mg/qWSxxjol55-14FchdbpszuSelect [facility] [place] on above:Order Comment: Specimen Type: BLOOD SPECIMENOrdering Facility: [facility] Address:[address] [id number] Comment: The [place] Diabetes Association (ADA) provides guidance for cutoff [...] Standards of Medical Care in Diabetes 2016, [place] Diabetes Association. Diabetes Care. 2016.39(Suppl 1).Performed By: #### 19419-1, , 2776-03 ####[facility] LABCLIA [id number] [address] [place] AMERICAPotassium [Moles/Vol] 4.1 mmol/LNormal3.7-5.1CC[facility] on above:Order Comment: Specimen Type: BLOOD SPECIMENOrdering Facility: [facility] Address:[address] [place], [place] [id number] By: #### 04081-1, , 2776-03 ####[facility] LABCLIA [id number] [address] [place] AMERICAProtein [Mass/Vol]6.1 g/dLLow 6.3-8.0[facility] [place] on above:Order Comment: Specimen Type: BLOOD SPECIMENOrdering Facility: [facility] Address:[address] [place] [address]Mznzbzrbv By: #### 50971-9, , 2776-03 ####[facility] LABCLIA [id number] VIL[place] [address] [place] AMERICASodium [Moles/Vol]137 mmol/L Sebvcf241-512UzzcmrmxfSelect [facility] [place] on above:Order Comment: Specimen Type: BLOOD SPECIMENOrdering Facility: [facility] Address:[address] [place], [place] [id number] By: #### 23488-0, 88079-3, 2777-1 ####[facility] LABCLIA [id number] VILLE [address] [place] OF AMERICAUrea nitrogen [Mass/Vol]13 mg/dL Normal7-21[facility]ain HospitalComment on above:Order Comment: Specimen Type: BLOOD SPECIMENOrdering Facility: [facility] Address:[address] [place], [place] [id number] By: #### 72976-7, 45805-1, 2777-1 ####[facility] LABCLIA [id number] VILLE [address] [place] OF AMERICAECHO WITH AGITATED SALINE CONTRASTon 65-87-8500PDBI WITH AGITATED SALINE CONTRASTEchocardiography Report: Transthoracic Echo [facility] Bedside Date of service: 05/04/2023 9:07:11 AM MAKER Ordering physician: ANNETTA SHARPE Indication: Hypertensive heart [...] ratio is 0.75. The average mitral E/e' ratiois 11.9. The mitral flow deceleration time is 246 msec. TRICUSPID VALVE There is mild (1+) tricuspid valve regurgitation. There is no thickening. The hepatic venous pattern showed normal systolic flow. AORTIC VALVE There is trace aortic valve regurgitation. Tricuspid aortic valve. There is no thickening. The LVOTdiameter is 1.8 cm. PULMONIC VALVE There is [...] * * Final * * * CC [employer] : [id number]h [facility] HospitalEosinophils/100 WBC Auto (Bld)on 05-04-2023 Eosinophils/100 WBC (Bld)2.5 %[facility] Medical CenterErythrocyte distribution width Auto (RBC) [Ratio]on 52-89-7737Zbbpddansbm distribution width (RBC) [Ratio]14.1 %11.5-15.0[facility] Medical CenterEthanol [Mass/volume] in Urineon 55-37-7473Hapyiuo (U) [Mass/Vol]<11 mg/dL<11[facility] Medical CenterHematocrit Auto (Bld) [Volume fraction]on 05-04-2023 Hematocrit (Bld) [Volume fraction]36.2 %36.0-46.0[facility] CenterHemoglobin [Mass/volume] in Bloodon 12-81-0762Kyqirocdqv (Bld) [Mass/Vol] 11.7 g/dL11.5-15.5FWilson Memorial HospitalINR in Platelet poor plasma by Coagulation assayon 76-92-8133NAF Coag (PPP) [Relative time]1.0 {INR}0.9-1.3 [facility] CenterComment on above:Vitamin K Antagonist (VKA) Therapeutic Range: INR 2 to 3 (Target INR of 2.5)Note: For patients treated with VKA drugs, such as warfarin, the [place] [employer]icians 2012 Guideline recommends a therapeutic INR range of 2 to 3 (target INR of 2.5). This recommendation includes high-risk patients with antiphospholipid syndrome with previous arterial or venous thromboembolism, current-generation mechanical or bioprosthetic aortic heart valve replacement.Note: Patients with mechanical aor tic valve replacement and additional risk factors for thromboembolic events (atrial fibrillation, previous thromboembolism, LV dysfunction, hypercoagulable conditions) or an older generation mechanical AVR (i.e., ball in-Cage) or any mechanical MVR should have a INR therapeutic range of 2.5 to 3.5 (target INR of 3).Dakotah GH, et al. Chest 2012, 141:7S-47SNishimdavon RA, et al. [facility] 2017, 70: 252-289Ketones Auto test strip (U) [Mass/Vol]on 00-45-5342Sdbqsaw (U) [Mass/Vol] NegativeNegativeCincinnati Children'S Hospital Medical CenterLaboratory - Chemistry and Chemistry - challengeon 19-21-4417Tjroxwz [Mass/Vol]3.4 g/dL3.9-4.9[facility] CenterALP [Catalytic activity/Vol]55 U/G03-142DasywbuwzCincinnati Children'S Hospital Medical CenterALT [Catalytic activity/Vol]6 U/L7-38[facility] Medical CenterAST [Catalytic activity/Vol]15 U/C60-38GpshaiszvCincinnati Children'S Hospital Medical CenterBilirubin [Mass/Vol]0.2 mg/dL0.2-1.3FWilson Memorial Hospital Calcium [Mass/Vol]9.5 mg/dL8.5-10.2FWilson Memorial HospitalChloride [Moles/Vol]102 mmol/S22-819CaopityjuCincinnati Children'S Hospital Medical CenterCO2 [Moles/Vol]24 mmol/X98-01IylvwajlaCincinnati Children'S Hospital Medical CenterCreatinine [Mass/Vol]0.78 mg/dL 0.58-0.96[facility] CenterGlucose [Mass/Vol]96 mg/dL74-99 [facility] CenterComment on above:The [place] Diabetes Association (ADA) provides guidance for cutoff [...] hyperglycemia or hyperglycemic crisis, random plasma glucose resultsgreater than or equal to 200 mg/dL meet the criteria for diagnosis of diabetes.Reference: Standardsof Medical Care in Diabetes 2016, [place] Diabetes Association. Diabetes Care. 2016.39(Suppl 1). Magnesium [Mass/Vol]2.1 mg/dL1.7-2.3FWilson Memorial HospitalPotassium [Moles/Vol]4.1 mmol/L3.7-5.1FWilson Memorial HospitalProtein [Mass/Vol] 6.1 g/dL6.3-8.0[facility] Memorial Hospitalodium [Moles/Vol]137 mmol/L 136-144[facility] Medical CenterUrea nitrogen [Mass/Vol]13 mg/dL7-21 [facility] CenterLaboratory - Drug toxicologyon 05-04-2023 Amphetamines Ql (U)NegativeNegativeCincinnati Children'S Hospital Medical CenterComment on above:Cutoff threshold at 1000 ng/mL.Benzodiazepines Ql (U)NegativeNegative [facility] Medical CenterComment on above:Cutoff threshold at 200 ng/mL. Cocaine Ql (U)NegativeNegativeCincinnati Children'S Hospital Medical CenterComment on above: Cutoff threshold at 300 ng/mL.Opiates Ql (U)NegativeNegativeCincinnati Children'S Hospital Medical CenterComment on above:Cutoff threshold at 300 ng/mL.Phencyclidine Ql (U)NegativeNegativeCincinnati Children'S Hospital Medical CenterComment on above:Cutoff threshold at 25 ng/mL.Laboratory - Hematology and Cell countson 05-04-2023 Eosinophils (Bld) [#/Vol]0.18 10*3/uL<0.46[facility] Immature granulocytes/100 WBC (Bld)0.3 %[facility] Leukocytes [#/volume] corrected for nucleated erythrocytes in Blood by Automated counon 94-84-9839NIS corrected for nucl RBC Auto (Bld) [#/Vol]7.12 k/uL 3.70-11.00[facility] Medical CenterLymphocytes Auto (Bld) [#/Vol]on 26-36-8767Zjjezbrvodg (Bld) [#/Vol]1.46 10*3/uL1.00-4.00[facility] Medical CenterLymphocytes/100 WBC Auto (Bld)on 87-48-9112Tuikidvlspd/100 WBC (Bld)20.5 %[facility] Auto (RBC) [Entitic mass]on 58-41-9331FQY (RBC) [Entitic mass]29.8 pg26.0-34.0[facility] HospitalHC Auto (RBC) [Mass/Vol]on 82-94-5570PGKQ (RBC) [Mass/Vol]32.3 g/dL 30.5-36.0Wayne HospitalV Auto (RBC) [Entitic vol]on 66-86-4948FIK (RBC) [Entitic vol]92.3 fL80.0-100.0[facility] Medical CenterMRA BRAIN WO IVCONon 00-78-8116SYC BRAIN WO IVCON* * *Final Report* * * DATE OF EXAM: May 04 2023 12:48PM [facility] 0272 - MRA BRAIN WO IVCON / PROCEDURE REASON: Subarachnoid hemorrhage (SAH), follow up * * * * Physician Interpretation * * * * EXAMINATION: MRA BRAIN WO IVCON, MRI BRAIN WO/W IVCON, MRI CERVICAL SPINE WO/W IVCON CLINICAL HISTORY: TECHNIQUE: Routine noncontrast MRI brain protocol including diffusion and gradient echo images. Intracranial 3D henh-ax-gdmquz MRA with post-processing performed at the modality [...] vertebral arteries, the basilar artery, and the refrigeration brazer/solderer are normal. No evidence of hemodynamically significant large vessel intracranial stenosis or aneurysm. There is some motion degrading several of the slabs limiting distal vessel evaluation. The intracranial vertebral arteries and the basilar artery are moderately tortuous. The majority of the subarachnoid hemorrhage is superior to the zzrbo-ax-olaa of the MR angiography, but no abnormality [...] counting reference for the cervical spine exam. Shingle Carrier: ZENIA Transcribe Date/Time: May 04 2023 1:02P Dictated by : VILLA ALARCON MD This examination was interpreted and the report reviewed and electronically signed by: VILLA ALARCON MD on May 04 2023 1:14PM EST [id number] Memorial Hospital BRAIN WO/W IVCONon 17-11-3406BQE BRAIN WO/W IVCON* * *Final Report* * * DATE OF [...] diffusion and gradient echo images. Intracranial 3D mgkb-cn-yvlpie MRA with post-processing performed at the modality [...] vertebral arteries, the basilar artery, and the refrigeration brazer/solderer are normal. No evidence of hemodynamically significant large vessel intracranial stenosis or aneurysm. There is some motion degrading several of the slabs limiting distal vessel evaluation. The intracranial vertebral arteries and the basilar artery are moderately tortuous. The majority of the subarachnoid hemorrhage is superior to the yfyoe-xa-pgim of the MR angiography, but no abnormality [...] counting reference for the cervical spine exam. Shingle Carrier: [facility] Transcribe Date/Time: May 04 2023 1:02P Dictated by : VILLA ALARCON MD This examination was interpreted and the report reviewed and electronically signed by: VILLA ALARCON MD on May 04 2023 1:14PM EST [id number] Memorial Hospital CERVICAL SPINE WO/W IVCONon 18-39-4188OAR CERVICAL SPINE WO/W IVCON* * *Final Report* * * DATE OF [...] diffusion and gradient echo images. Intracranial 3D hvdb-lq-flfjgk MRA with post-processing performed at the modality [...] vertebral arteries, the basilar artery, and the refrigeration brazer/solderer are normal. No evidence of hemodynamically significant large vessel intracranial stenosis or aneurysm. There is some motion degrading several of the slabs limiting distal vessel evaluation. The intracranial vertebral arteries and the basilar artery are moderately tortuous. The majority of the subarachnoid hemorrhage is superior to the nzgri-rr-glpn of the MR angiography, but no abnormality [...] counting reference for the cervical spine exam. Shingle Carrier: ZENIA Transcribe Date/Time: May 04 2023 1:02P Dictated by : VILLA ALARCON MD This examination was interpreted and the report reviewed and electronically signed by: VILLA ALARCON MD on May 04 2023 1:14PM EST [id number] Health Lorain HospitalMagnesium SerPl-mCncon 26-23-4263Wprgspeif [Mass/Vol]2.1 mg/dLNormal1.7-2.3CC[facility] Comment on above:Order Comment: Specimen Type: BLOOD SPECIMENOrdering Facility: [facility] Address:[address] [place] [address] Performed By: #### 87320-6, 13965-7, 2777-1 ####[facility] LABCLIA [id number] [address] [place] AMERICAMonocytes Auto (Bld) [#/Vol]on 82-17-4880Ypcnvanen (Bld) [#/Vol]0.57 10*3/uL<0.87[facility] Medical CenterMonocytes/100 WBC Auto (Bld)on 71-73-3640Pxojkrvwo/100 WBC (Bld)8.0 %[facility] Medical CenterNURSING PROGon 93-46-1078AFSQOYV PROGHNO ID: [id number] Author: WILMER CARRASCO RN Service: ? Author [...] Marcelino DATE: May 04, 2023 TIME: 11:18 AMNormalMercy Health Lorain HospitalNeutrophils Auto (Bld) [#/Vol]on 70-75-6751Wanthqcptct (Bld) [#/Vol]4.85 10*3/uL1.45-7.50[facility] Medical CenterNeutrophils/100 WBC Auto (Bld)on 37-11-5668Ozvczekezou/100 WBC (Bld)68.1 %[facility] Medical CenterNo Panel Informationon 05-04-2023 Estimated GFR (CKD-EPI)75 mL/min/1.73m???>=60[facility] Comment on above:Estimated Glomerular Filtration Rate (eGFR) is calculated using the 2020 CKD-EPI creatinine equation. This equation utilizes serum creatinine, sex, and age as parameters. The creatinine assay has traceable calibration to isotope dilution-mass spectrometry. Refer to KDIGO guidelines for clinical inte rpretation. In patients with unstable renal function, e.g. those with acute kidney injury, the eGFRmay not accurately reflect actual GFR.Immature Granulocyte # (Auto)<0.03 k/uL<0.10[facility] Medical CenterPhosphorus Level3.3 mg/dL2.7-4.8[facility] Medical CenterUrine Barbiturates Screen NegativeNegativeCincinnati Children'S Hospital Medical CenterComment on above:Cutoff threshold at 200 ng/mL.Urine Oxycodone ScreenNegativeNegativeCincinnati Children'S Hospital Medical CenterComment on above:Cutoff threshold at 100 ng/mL.Nucleated RBC Auto (Bld) [#/Vol]on 15-72-3059Xjcrttyvu RBC (Bld) [#/Vol]10*3/uL<0.01[facility] Medical CenterNucleated erythrocytes [Presence] in Blood by Automated counton 41-05-9791Yzyihwrky RBC Auto Ql (Bld)0.0 /100{WBC}[facility] Medical CenterPT panel Coag (PPP)on 68-04-1669NEZ Coag (PPP) [Relative time]1.0 {INR}Normal0.9-1.3CCleveland Clinic Fairview HospitalComment on above:Order Comment: Specimen Type: BLOOD SPECIMENOrdering Facility: [facility] Address:[address] [place], [place] [address]Result Comment: Vitamin K Antagonist (VKA) Therapeutic Range: INR 2 to 3 (Target INR of 2.5) Note: For patients treated with VKA drugs, such as warfarin, the [place] College [employer] Chest [employer]icians 2012 Guideline recommends [...] Chest 2012, 141:7S-47S Maribel RA, et al. JAC 2017, 70: 252-289Performed By: #### 66633-1, 37824-8 ####[facility] LABCLIA [id number] [facility] P[address]QVXSTVAWO[address] [place], [place] [address]PT Coag (PPP) [Time]10.4 sNormal 9.7-13.0[facility] [place] on above:Order Comment: Specimen Type: BLOOD SPECIMENOrdering Facility: [facility] Address:[address] [place], [place] [address]Performed By: #### 72921-0, 72611-1 ####[facility] LABCLIA [id number] [address] STATES OF AMERICAPhosphate SerPl-mCncon 42-36-4571Kmmlqibeb [Mass/Vol]3.3 mg/dLNormal2.7-4.8[facility] on above:Order Comment: Specimen Type: BLOOD SPECIMENOrdering Facility: [facility] Address:[address] [place], [place] [address]Performed By: #### 07340- 8, 39785-8, 2777-1 ####[facility] LABCLIA [id number] [address] STATES OF AMERICAPlatelet mean volume Auto (Bld) [Entitic vol]on 62-11-5524Lhhvphiw mean volume (Bld) [Entitic vol]9.3 fL9.0-12.7FWilson Memorial HospitalPlatelets Auto (Bld) [#/Vol]on 75-32-7120Bafearscz (Bld) [#/Vol]177 10*3/cH887-406GrmxtnsrtCincinnati Children'S Hospital Medical CenterProtein Auto test strip (U) [Mass/Vol]on 24-77-9258Csvkvms (U) [Mass/Vol] NegativeNegativeCincinnati Children'S Hospital Medical CenterProthrombin time (PT)on 64-45-5033GK Coag (PPP) [Time]10.4 s9.7-13.0[facility] Medical CenterRBC Auto (Bld) [#/Vol]on 65-45-5950ZVW (Bld) [#/Vol]3.92 10*6/uL3.90-5.20[facility]-Hyde Memorial Hospitalerum or plasma anion gap determinationon 73-93-4912Rbcll gap [Moles/Vol]11 mmol/L9-18FOhioHealth Riverside Methodist Hospitalpecific gravity Auto test strip (U) [Rel density]on 03-79-9981Fzpigese gravity (U) [Rel density] ClearClearFWilson Memorial HospitalTHERAPY NTon 42-94-4754BNBOHTQ NTHNO ID: [id number] Author: WILMER RIZVI, PT, DPT Service: Physical Therapy Author Type: Physical Therapist Type: Therapy (PT/OT/Speech/Resp) Filed: 05/04/2023 17:27 Note Text: Physical Therapy Treatment Summary SERVICE DATE: 05/04/2023 SERVICE TIME: 1610 to 1705 ROOM: [place] [address] ([facility] VASCULAR MEDIC[facility]) PT 6 Clicks Score: [...] Reduced mobility-other TREATMENT INTERVENTIONS Evaluation, Therapeutic Activity (08450), Gait Training (89899) Timed Code Treatment (minutes): 40 Skilled Treatment [...] Wilmer Rizvi, PT, DPT PATIENT NAME: Carly Stanford DATE: May 04, 2023 TIME: 5:27 PMNOhio Valley Surgical HospitalTHERAPY NTHNO ID: [id number] Author: MOHINI PINEDA OTR/Alex Service: Occupational Therapy Author Type: Occupational Therapist Type: Therapy (PT/OT/Speech/Resp) Filed: 05/04/2023 16:34 Note Text: OCCUPATIONAL THERAPY MISSED VISIT SERVICE DATE: 05/04/2023 SERVICE TIME: 1205 ROOM: [place] [address] Patient not seen due to Test / Procedure. SIGNATURE: WALTER Olea PATIENT NAME: Carly Leon Rust DATE: May 04, 2023 TIME: 4:34 PMNOhio Valley Surgical HospitalTOX SCREEN ROUT URon 05-04-2023 Amphetamines Confirm (U) [Mass/Vol]NegativeNormalNegativeMercy Health Lorain HospitalComment on above:Order Comment: Specimen Type: URINE SPECIMENOrdering Facility: [facility] Address:[address] [place] [address] Comment: Cutoff threshold at 1000 ng/mL.Performed By: #### UTOX2 ####[facility] LABCLIA [id number] [place] [address] [place] AMERICABARBITURATES, URINENegativeNormal NegativeSelect Medical [facility] [place] on above:Order Comment: Specimen Type: URINE SPECIMENOrdering Facility: [facility] Address:[address] [place], [place] [address]Result Comment: Cutoff threshold at 200 ng/mL. Performed By: #### UTOX2 ####[facility] LABCLIA [id number] [place] [address] [place]ANK BENZODIAZEPINES, URNegativeNormalNegativeSelect [facility] [place] on above:Order Comment: Specimen Type: URINE SPECIMENOrdering Facility: [facility] Address:[address] [place], [place] [address]Result Comment: Cutoff threshold at 200 ng/mL.Performed By: #### UTOX2 ####[facility] LABIA [id number] [place] [address] [place] AMERICACannabinoids Screen Ql (U)NegativeNormalNegativeSelect Medical [facility] [place] on above:Order Comment: Specimen Type: URINE SPECIMENOrdering Facility: [facility] Address:[address] [place], [place] [address]Result Comment: Cutoff threshold at 50 ng/mL.Performed By: #### UTOX2 ####[facility] LABCLIA [id number] [address] STATES OF AMERICACocaine Ql (U)Negative NormalNegativeSelect Medical [facility] [place] on above:Order Comment: Specimen Type: URINE SPECIMENOrdering Facility: [facility] Address:[address] [place], [place] [address]Result Comment: Cutoff threshold at 300 ng/mL. Performed By: #### UTOX2 ####[facility] LABIA [id number] [place] [address] [place] AMERICAEthanol (U) [Mass/Vol]<11Normal<11CCleveland Clinic Fairview HospitalComselect specialty hospital-pontiac on above:Order Comment: Specimen Type: URINE SPECIMENOrdering Facility: [facility] Address:[address] [place], [place] [address]Performed By: #### UTOX2 ####[facility] LABCLIA [id number] [place] [address] [place] AMERICAOpiates Screen Ql (U)Negative NormalNegativeSelect Medical [facility] [place] on above:Order Comment: Specimen Type: URINE SPECIMENOrdering Facility: [facility] Address:[address] [place], [place] [address]Result Comment: Cutoff threshold at 300 ng/mL. Performed By: #### UTOX2 ####[facility] LABIA [id number] [address] STATES OF AMERICAoxyCODONE cutoff Screen (U) [Mass/Vol]NegativeNormalNegativeMercy Health Lorain Hospital Comment on above:Order Comment: Specimen Type: URINE SPECIMENOrdering Facility: [facility] Address:[address] [place], [place] [address]Result Comment: Cutoff threshold at 100 ng/mL.Performed By: #### UTOX2 ####[facility] LABIA [id number] [place] [address] [place] AMERICAPhencyclidine Ql (U)NegativeNormalNegative [facility] [place] on above:Order Comment: Specimen Type: URINE SPECIMENOrdering Facility: [facility] Address:[address] [place], [place] [address]Result Comment: Cutoff threshold at 25 ng/mL.Performed By: #### UTOX2 ####[facility] LABIA [id number] [place] [address] [place] AMERICAURINALYSIS, DIPSTICK ONLYon 79-17-8681Yeqarihyn Ql (U)NegativeNormalNegativeSelect [facility] [place] on above:Order Comment: Specimen Type: URINE SPECIMENOrdering Facility: [facility] Address:[address] [place], [place] [address]Performed By: #### UA ####[facility] LABCLIA [id number] [place] [address] [place] Clarity (Unsp spec)ClearNormalClearSelect [facility] [place] on above: Order Comment: Specimen Type: URINE SPECIMENOrdering Facility: [facility] Address:[address] [place], [place] [address]Performed By: #### UA ####[facility] LABCLIA [id number] [place] [address] [place] AMERICAColor (U)YellowNormalYellowSelect Medical [facility] [place] on above:Order Comment: Specimen Type: URINE SPECIMENOrdering Facility: [facility] Address:[address] [place], [place] [address]Performed By: #### UA ####[facility] LABCLIA [id number] [place] [address] [place] AMERICAGlucose Test strip (U) [Mass/Vol]NegativeNormalNegativeSelect [facility] [place] on above:Order Comment: Specimen Type: URINE SPECIMENOrdering Facility: [facility] Address:[address] [place], [place] [address]Performed By: #### UA ####[facility] LABCLIA [id number] [place] [address] [place] Hemoglobin Ql (U)TraceAbnormalNegativeSelect [facility] [place] on above:Order Comment: Specimen Type: URINE SPECIMENOrdering Facility: [facility] Address:[address] [place], [place] [address]Performed By: #### UA ####[facility] LABCLIA [id number] [place] [address] [place] AMERICAKetones Ql (U)NegativeNormal NegativeSelect Medical [facility] [place] on above:Order Comment: Specimen Type: URINE SPECIMENOrdering Facility: [facility] Address:[address] [place], [place] [address]Performed By: #### UA ####[facility] LABCLIA [id number] [place] [address] [place] [facility] HOSPITALLeukocyte esterase Test strip Ql (U)2+AbnormalNegativeSelect [facility] [place] on above:Order Comment: Specimen Type: URINE SPECIMENOrdering Facility: [facility] Address:[address] [place], [place] [address]Performed By: #### UA ####[facility] LABCLIA [id number] [place] [address] [place] AMERICANitrite Ql (U)NegativeNormalNegativeSelect [facility] [place] on above:Order Comment: Specimen Type: URINE SPECIMENOrdering Facility: [facility] Address:[address] [place], [place] [address]Performed By: #### UA ####[facility] LABCLIA [id number] [place] [address] [place] AMERICApH (U)7.5 [pH]Normal<8.5CCleveland Clinic [facility] on above:Order Comment: Specimen Type: URINE SPECIMENOrdering Facility: [facility] Address:[address] [place], [place] [address]Performed By: #### UA ####[facility] LABCLIA [id number] [place] [address] [place] AMERICAProtein (U) [Mass/Vol]NegativeNormalNegativeMercy Health Lorain Hospital Comment on above:Order Comment: Specimen Type: URINE SPECIMENOrdering Facility: [facility] Address:[address] [place] [address] Performed By: #### UA ####[facility] LABCLIA [id number] [place] [address] [place] AMERICASpecific gravity (U) [Rel density]1.147Yvflgq3.005-1.030[facility] Clinic ClevelandComment on above:Order Comment: Specimen Type: URINE SPECIMENOrdering Facility: [facility] Address:[address] [place] [address] Performed By: #### UA ####[facility] LABCLIA [id number] [place] [address] [place] AMERICAUrobilinogen Ql (U)0.2 EU/dLNormal0.2-1.0 EU/dLMercy Health Lorain HospitalComment on above:Order Comment: Specimen Type: URINE SPECIMENOrdering Facility: [facility] Address:[address] [place], [place] [address]Performed By: #### UA ####[facility] LABCLIA [id number] [address] STATES OF AMERICAUS LEG VEIN DVT FARHAN VAS LABon 61-86-9287YJ LEG VEIN DVT FARHAN VAS LABNon-Invasive Vascular Laboratory [facility] Portable Lower Extremity Venous Duplex Bilateral/Complete Date [...] acute deep vein thrombosis. Technologist: Ross Schmidt RVT Ordering physician: JASS PENN Interpreting physician: Artem Velázquez DO Final CC [employer] : [id number] See Link below for ImageNormalClevelMission HospitalUrine glucose measurement by test strip (mass/volume)on 63-96-9762Oruoftc Test strip (U) [Mass/Vol]NegativeNegUniversity Hospitals Conneaut Medical CenterUrine hemoglobin detection by automated test stripon 78-33-3359Femqymwxtl Auto test strip Ql (U) TraceNegativeCincinnati Children'S Hospital Medical CenterUrine nitrite detection by automated test stripon 71-10-0516Qcnpdxc Auto test strip Ql (U)2+Negative [facility] Medical CenterNitrite Auto test strip Ql (U)NegativeNegative [facility] Medical CenterUrobilinogen Auto test strip (U) [Mass/Vol]on 66-59-9340Sznhialxkyff (U) [Mass/Vol]0.2 EU/dL0.2-1.0 EU/dLCincinnati Children'S Hospital Medical CenteraPTT PPPon 99-80-1220jTHD Coag (PPP) [Time]28.9 tDvtpzu33.0-32.4 [facility] HospitalComment on above:Order Comment: Specimen Type: BLOOD SPECIMENOrdering Facility: [facility] Address:[address] [place], [place] [address]Performed By: #### 85235-2, 50626-1 ####[facility] LABCLIA [id number] [address] OF WHITE HOSPITALpH Auto test strip (U)on 32-96-0973cL (U)7.5 [pH]<8.5FWilson Memorial HospitalABO/Rhon 63-47-8604XVS/RhPositiveInvalid Interpretation [facility]omerene HospitalComment on above:Performed By: #### [id number], 10248530, 3902944, 51863664 ####[facility] [address] [place], [place] [address]BMX/Rh History Checkon 29-42-6194WON/Rh History CheckVerified Hx Blood TypeNormLouis Stokes Cleveland VA Medical CenterComment on above: Performed By: #### [id number], 01377227, 7851963, 68258838 ####[facility] [address] [place], [place] [address]XMWXcx 06-96-6411JEVF Gel InterpNegativeHolzer Medical Center – JacksonComment on above:Performed By: #### 05499504, 20769091, 5043156, [id number] ####[facility] [address] [place], [place] [address]Swboygwom partial thromboplastin time (aPTT) in platelet poor plasma by coagulation aon 53-58-3204sINX Coag (PPP) [Time]29.4 s23.0-32.4FWilson Memorial HospitalBLOOD BANKOrdered By: Jesse Li on 90-48-7095HOG/Rh InterpPositiveInvalid Interpretation CodePARKSIDE PSYCHIATR[facility] [place] BB SubsectionABSC Gel InterpNegative (05/03/23 10:22 AM)NormalPARKSIDE PSYCHIATRIC HOSPITAL [facility] [place] BB SubsectionBMPon 55-95-5524Vzmyq gap [Moles/Vol] 13 mmol/LNormal6-16[facility]rus HospitalComment on above:Performed By: #### 8870907, 37871326, 5410513, 21990159 ####[facility] [address] [place], [place] [address]VWE/Creat Ratio18 No CiegmYxilmq10-60 [facility] HospitalComment on above:Performed By: #### 4599172, 30832644, 8703649, 60191926 ####[facility] Pkmmfyofhb[address] W[address] AveNoralice hyde medical centerk, [place] [address]Modggqo [Mass/Vol]9.1 mg/dLNormal8.9-11.1[facility] Hospital Of BaltimoreComment on above:Performed By: #### 1643190, 94526413, 8048595, 46357127 ####[facility] Mljtcadggv130 Woden AveNoralice hyde medical centerk, [place] [address]Lbtwrfiz [Moles/Vol]103 mmol/UIrhewm402-430TxafgdAvita Health System Bucyrus HospitalComment on above:Performed By: #### 3837099, 70403748, 3051970, 66774675 ####[facility] Vcnevmvhzm419 Woden AveNthe institute of living, [place] [address]UH4 [Moles/Vol]27 mmol/GSodxou24-08WkzysgAvita Health System Bucyrus HospitalComment on above:Performed By: #### 1619848, 66075297, 7311344, 55445623 ####[facility] Ikmfgcqayu612 Woden AveNoralice hyde medical centerk, [place] [address]Ribrzlaexs [Mass/Vol] 0.9 mg/dLNormal0.5-1.3FWright-Patterson Medical CenterComment on above:Performed By: #### 4438264, 05390061, 0251594, 23886567 ####[facility] Jreanspdkf223 Woden AveNoralice hyde medical centerk, [place] [address]Pibgknq [Mass/Vol]82 mg/dLNormal 55-199[facility] Bucyrus HospitalComment on above:Performed By: #### 8297476, 20777449, 4409019, 14057567 ####[facility] Uottgttqlz[address] Woden AveNoralice hyde medical centerk, [place] [address]Pmbocdwul [Moles/Vol]4.0 mmol/LNormal3.5-5.3[facility] Hospital Of BaltimoreComment on above:Performed By: #### 9524137, 48845349, 7631185, 96598252 ####[facility] Pqwlxddxid[address] Woden AveNoralice hyde medical centerk, [place] [address]Zyookr [Moles/Vol]139 mmol/LAhxipz574-062PkaxbqAvita Health System Bucyrus HospitalComment on above:Performed By: #### 8068789, 33884481, 8347307, 38909271 ####[facility] [address] [place], [place] [address]Kyms nitrogen [Mass/Vol]16 mg/dLNormal-[facility] Comment on above:Performed By: #### 5502465, 04437697, 3426852, 40867377 ####[place] [place] [address] Basophils Auto (Bld) [#/Vol]on 88-82-7964Dybtikncu (Bld) [#/Vol]0.04 10*3/uL <0.11[facility] Medical CenterBasophils/100 WBC Auto (Bld)on 05-03-2023 Basophils/100 WBC (Bld)0.6 %[facility] Medical CenterBlood Bank ID#on [id number]#[id number] Interpretation [facility] Comment on above:Performed By: #### 20429395, 34706785, 6247760, 88404039 ####[facility] [address] [place], [place] [address]Vawca manual differential comment interpretation narrativeon 16-02-9463Zvwwav differential comment Girma (Bld) [Interp]AutoCincinnati Children'S Hospital Medical CenterCB W Auto Differential panel (Bld)on 65-63-5374Jupzxafgb (Bld) [#/Vol]0.04 10*3/uL Normal<0.11CCleveland [facility] on above:Order Comment: Specimen Type: BLOOD SPECIMENOrdering Facility: [facility] Address:[address] [id number] By: #### 27028-7 ####[facility] LABCLIA [id number] [address] [address] [place] OF AMERICABasophils/100 WBC (Bld)0.6 %NormalSelect Medical [facility] [place] on above:Order Comment: Specimen Type: BLOOD SPECIMENOrdering Facility: [facility] Address:[address] [place], [place] [address]Performed By: #### 46907-3 ####[facility] LABCLIA [id number] [place] [address] [place] Differential cell count method Nom (Bld)AutoNormalClevelMission Hospital Comment on above:Order Comment: Specimen Type: BLOOD SPECIMENOrdering Facility: [facility] Address:[address] [place] [address] Performed By: #### 56531-4 ####[facility] LABCLIA [id number] [place] [address] [place] Eosinophils (Bld) [#/Vol]0.12 10*3/uLNormal<0.46[facility] Comment on above:Order Comment: Specimen Type: BLOOD SPECIMENOrdering Facility: [facility] Address:[address] [place] [address] Performed By: #### 89820-4 ####[facility] LABCLIA [id number] [place] [address] [place] Eosinophils/100 WBC (Bld)1.8 %NormalMercy Health Lorain HospitalComment on above: Order Comment: Specimen Type: BLOOD SPECIMENOrdering Facility: [facility] Address:[address] [place], [place] [address]Performed By: #### 89071- 8 ####[facility] LABCLIA [id number] [place] [address] [place] AMERICAErythrocyte distribution width (RBC) [Ratio]14.2 %Drltrg16.5-15.0Mer[facility] Lorain HospitalComment on above: Order Comment: Specimen Type: BLOOD SPECIMENOrdering Facility: [facility] Address:[address] [place], [place] [address]Performed By: #### 23799- 8 ####[facility] LABCLIA [id number] [address]ED[address] [place]FD[place], [place] [address] [place] AMERICAHematocrit (Bld) [Volume fraction]35.6 %Low36.0-46.0[facility] [place] on above:Order Comment: Specimen Type: BLOOD SPECIMENOrdering Facility: [facility] Address:[address] [place], [place] [address]Performed By: #### 05312- 8 ####[facility] LABCLIA [id number] [place] [address] [place] AMERICAHemoglobin (Bld) [Mass/Vol]11.5 g/pTFkxjla19.5-15.5CC[facility] on above:Order Comment: Specimen Type: BLOOD SPECIMENOrdering Facility: [facility] Address:[address] [place], [place] [address]Performed By: #### 66766-9 ####[facility] LABCLIA [id number] [place] [address] [place] AMERICAImmature granulocytes (Bld) [#/Vol]10*3/uLNormal<0.10[facility] [place] on above:Order Comment: Specimen Type: BLOOD SPECIMENOrdering Facility: [facility] Address:[address] [place], [place] [address]Performed By: #### 35763- 8 ####[facility] LABCLIA [id number] [place] [address] [place] AMERICAImmature granulocytes/100 WBC (Bld)0.3 %NormalSelect Medical [facility] [place] on above:Order Comment: Specimen Type: BLOOD SPECIMENOrdering Facility: [facility] Address:[address] [place], [place] [address]Performed By: #### 92643-3 ####[facility] LABCLIA [id number] [place] [address] [place] AMERICALymphocytes (Bld) [#/Vol]1.43 10*3/uLNormal1.00-4.00[facility] [place] on above:Order Comment: Specimen Type: BLOOD SPECIMENOrdering Facility: [facility] Address:[address] [place], [place] [address]Performed By: #### 64081-5 ####[facility] LABCLIA [id number] [place] [address] [place] AMERICALymphocytes/100 WBC (Bld)21.7 % NormalSelect Medical [facility] [place] on above:Order Comment: Specimen Type: BLOOD SPECIMENOrdering Facility: [facility] Address:[address] [place], [place] [address]Performed By: #### 34331-1 ####[facility] LABCLIA [id number] [place] [address] [place] AMERICAMCH (RBC) [Entitic mass]29.7 adAgtgqa75.0-34.0[facility] [place] on above:Order Comment: Specimen Type: BLOOD SPECIMENOrdering Facility: [facility] Address:[address] [place], [place] [address]Performed By: #### 60097-4 ####[facility] LABCLIA [id number] [place] [address] [place] MCHC (RBC) [Mass/Vol]32.3 g/wHJxgeyf29.5-36.0[facility] [place] on above:Order Comment: Specimen Type: BLOOD SPECIMENOrdering Facility: [facility] Address:[address] [place] [address] Performed By: #### 89582-2 ####[facility] LABCLIA [id number] [place] [address] [place] MCV (RBC) [Entitic vol]92.0 kDAiqinl11.0-100.0[facility] [place] on above:Order Comment: Specimen Type: BLOOD SPECIMENOrdering Facility: [facility] Address:[address] [place] [address] Performed By: #### 98991-8 ####[facility] LABCLIA [id number] [place] [address] [place] Monocytes (Bld) [#/Vol]0.60 10*3/uLNormal<0.87[facility] [place] on above:Order Comment: Specimen Type: BLOOD SPECIMENOrdering Facility: [facility] Address:[address] [place] [address] Performed By: #### 48550-3 ####[facility] LABCLIA [id number] [place] [address] [place] Monocytes/100 WBC (Bld)9.1 %NormalSelect Medical [facility] [place] on above: Order Comment: Specimen Type: BLOOD SPECIMENOrdering Facility: [facility] Address:[address] [place], [place] [address]Performed By: #### 53641- 8 ####[facility] LABCLIA [id number] [place] [address] [place] AMERICANeutrophils (Bld) [#/Vol]4.39 10*3/uLNormal1.45-7.50[facility] [place] on above:Order Comment: Specimen Type: BLOOD SPECIMENOrdering Facility: [facility] Address:[address] [place], [place] [address]Performed By: #### 45660-4 ####[facility] LABCLIA [id number] [place] [address] [place] AMERICANeutrophils/100 WBC (Bld)66.5 % NormalSelect Medical [facility] [place] on above:Order Comment: Specimen Type: BLOOD SPECIMENOrdering Facility: [facility] Address:[address] [place], [place] [address]Performed By: #### 49464-5 ####[facility] LABCLIA [id number] [place] [address] [place] AMERICANucleated RBC (Bld) [#/Vol]10*3/uLNormal<0.01[facility] [place] on above:Order Comment: Specimen Type: BLOOD SPECIMENOrdering Facility: [facility] Address:[address] [place], [place] [address]Performed By: #### 32860-8 ####[facility] LABIA [id number] [place] [address] [place] Nucleated RBC/100 WBC (Bld) [Ratio]0.0 /100 WBCNormalCCleveland Clinic Fairview Hospital Comment on above:Order Comment: Specimen Type: BLOOD SPECIMENOrdering Facility: [facility] Address:[address] [place] [address] Performed By: #### 00909-1 ####[facility] LABIA [id number] [place] [address] [place] Platelet mean volume (Bld) [Entitic vol]9.4 fLNormal9.0-12.7CC[facility] on above:Order Comment: Specimen Type: BLOOD SPECIMENOrdering Facility: [facility] Address:[address] [place], [place] [address]Performed By: #### 55767-6 ####[facility] LABIA [id number] [place] [address] [place] Platelets (Bld) [#/Vol]177 10*3/lZOwxaxr220-544OictthzegSelect Medical [facility] [place] on above:Order Comment: Specimen Type: BLOOD SPECIMENOrdering Facility: [facility] Address:[address] [place] [address] Performed By: #### 92573-6 ####[facility] LABIA [id number] [place] [address] [place] RBC (Bld) [#/Vol]3.87 10*6/uLLow3.90-5.20[facility] [place] on above:Order Comment: Specimen Type: BLOOD SPECIMENOrdering Facility: [facility] Address:[address] [place], [place] [address]Performed By: #### 53462-1 ####[facility] LABCLIA [id number] [place] [address] [place] AMERICAWBC (Bld) [#/Vol]6.60 10*3/uLNormal3.70-11.00[facility] [place] on above:Order Comment: Specimen Type: BLOOD SPECIMENOrdering Facility: [facility] Address:[address] [place], [place] [address]Performed By: #### 77760-4 ####[facility] LABIA [id number] [place] [address] [place] AMERICABasophils (Bld) [#/Vol]0.04 10*3/uLNormal<0.11CC[facility] on above:Order Comment: Specimen Type: BLOOD SPECIMENOrdering Facility: [facility] Address:[address] [place], [place] [address]Performed By: #### 15084-5 ####[facility] LABIA [id number] [place] [address] [place] AMERICABasophils/100 WBC (Bld)0.6 % NormalSelect Medical [facility] [place] on above:Order Comment: Specimen Type: BLOOD SPECIMENOrdering Facility: [facility] Address:[address] [place], [place] [address]Performed By: #### 43595-9 ####[facility] LABIA [id number] [place] [address] [place] AMERICADifferential cell count method Nom (Bld)AutoNormalCCleveland Clinic Avon Hospital on above:Order Comment: Specimen Type: BLOOD SPECIMENOrdering Facility: [facility] Address:[address] [place], [place] [address]Performed By: #### 33635-5 ####[facility] LABIA [id number] [place] [address] [place] AMERICAEosinophils (Bld) [#/Vol]0.09 10*3/uLNormal<0.46[facility] [place] on above:Order Comment: Specimen Type: BLOOD SPECIMENOrdering Facility: [facility] Address:[address] [place], [place] [address]Performed By: #### 47523-3 ####[facility] LABCLIA [id number] [place] [address] [place] Eosinophils/100 WBC (Bld)1.2 %NormalSelect Medical [facility] [place] on above: Order Comment: Specimen Type: BLOOD SPECIMENOrdering Facility: [facility] Address:[address] [place], [place] [address]Performed By: #### 15658- 8 ####[facility] LABCLIA [id number] [place] [address] [place] AMERICAErythrocyte distribution width (RBC) [Ratio]13.7 %Gdyerx51.5-15.0[facility] [place] on above: Order Comment: Specimen Type: BLOOD SPECIMENOrdering Facility: [facility] Address:[address] [place], [place] [address]Performed By: #### 28862- 8 ####[facility] LABCLIA [id number] [place] [address] [place] AMERICAHematocrit (Bld) [Volume fraction]37.0 %Tdbesz49.0-46.0[facility] [place] on above:Order Comment: Specimen Type: BLOOD SPECIMENOrdering Facility: [facility] Address:[address] [place], [place] [address]Performed By: #### 25268- 8 ####[facility] LABCLIA [id number] [place] [address] [place] AMERICAHemoglobin (Bld) [Mass/Vol]12.2 g/oZPzzuhs16.5-15.5CC[facility] on above:Order Comment: Specimen Type: BLOOD SPECIMENOrdering Facility: [facility] Address:[address] [place], [place] [address]Performed By: #### 89576-5 ####[facility] LABCLIA [id number] [place] [address] [place] AMERICAImmature granulocytes (Bld) [#/Vol]10*3/uLNormal<0.10[facility] [place] on above:Order Comment: Specimen Type: BLOOD SPECIMENOrdering Facility: [facility] Address:[address] [place], [place] [address]Performed By: #### 19638- 8 ####[facility] LABCLIA [id number] [place] [address] [place] AMERICAImmature granulocytes/100 WBC (Bld)0.3 %NormalSelect Medical [facility] [place] on above:Order Comment: Specimen Type: BLOOD SPECIMENOrdering Facility: [facility] Address:[address] [place], [place] [address]Performed By: #### 14302-6 ####[facility] LABCLIA [id number] [place] [address] [place] AMERICALymphocytes (Bld) [#/Vol]1.31 10*3/uLNormal1.00-4.00[facility] [place] on above:Order Comment: Specimen Type: BLOOD SPECIMENOrdering Facility: [facility] Address:[address] [address] [place], [place] [address]Performed By: #### 71920-6 ####[facility] LABCLIA [id number] [place] [address] [place] AMERICALymphocytes/100 WBC (Bld)18.1 % NormalSelect Medical [facility] [place] on above:Order Comment: Specimen Type: BLOOD SPECIMENOrdering Facility: [facility] Address:[address] [place], [place] [address]Performed By: #### 53279-4 ####[facility] LABCLIA [id number] [place] [address] [place] AMERICAMCH (RBC) [Entitic mass]30.3 ecRgwkwm05.0-34.0[facility] [place] on above:Order Comment: Specimen Type: BLOOD SPECIMENOrdering Facility: [facility] Address:[address] [place], [place] [address]Performed By: #### 74041-0 ####[facility] LABIA [id number] [place] [address] [place] MCHC (RBC) [Mass/Vol]33.0 g/fYLvuvjw15.5-36.0[facility] [place] on above:Order Comment: Specimen Type: BLOOD SPECIMENOrdering Facility: [facility] Address:[address] [place] [address] Performed By: #### 69733-0 ####[facility] LABIA [id number] [place] [address] [place] MCV (RBC) [Entitic vol]91.8 eJIivwcf35.0-100.0[facility] [place] on above:Order Comment: Specimen Type: BLOOD SPECIMENOrdering Facility: [facility] Address:[address] [place] [address] Performed By: #### 23631-6 ####[facility] LABIA [id number] [place] [address] [place] Monocytes (Bld) [#/Vol]0.59 10*3/uLNormal<0.87[facility] [place] on above:Order Comment: Specimen Type: BLOOD SPECIMENOrdering Facility: [facility] Address:[address] [place] [address] Performed By: #### 85036-6 ####[facility] LABCLIA [id number] [place] [address] [place] Monocytes/100 WBC (Bld)8.2 %NormalSelect Medical [facility] [place] on above: Order Comment: Specimen Type: BLOOD SPECIMENOrdering Facility: [facility] Address:[address] [place], [place] [address]Performed By: #### 29175- 8 ####[facility] LABCLIA [id number] [place] [address] [place] AMERICANeutrophils (Bld) [#/Vol]5.18 10*3/uLNormal1.45-7.50[facility] Toledoment on above:Order Comment: Specimen Type: BLOOD SPECIMENOrdering Facility: [facility] Address:[address] [place], [place] [address]Performed By: #### 57119-4 ####[facility] LABCLIA [id number] [place] [address] [place] AMERICANeutrophils/100 WBC (Bld)71.6 % NormalMercy Health Lorain HospitalComment on above:Order Comment: Specimen Type: BLOOD SPECIMENOrdering Facility: [facility] Address:[address] [place], [place] [address]Performed By: #### 20987-1 ####[facility] LABIA [id number] [place] [address] [place] AMERICANucleated RBC (Bld) [#/Vol]10*3/uLNormal<0.01[facility] [place] on above:Order Comment: Specimen Type: BLOOD SPECIMENOrdering Facility: [facility] Address:[address] [place], [place] [address]Performed By: #### 72413-4 ####[facility] LABCLIA [id number] [place] [address] [place] Nucleated RBC/100 WBC (Bld) [Ratio]0.0 /100 WBCNormalCCleveland Clinic Fairview Hospital Comment on above:Order Comment: Specimen Type: BLOOD SPECIMENOrdering Facility: [facility] Address:[address] [place] [address] Performed By: #### 66983-7 ####[facility] LABCLIA [id number] [place] [address] [place] Platelet mean volume (Bld) [Entitic vol]9.4 fLNormal9.0-12.7CC[facility] on above:Order Comment: Specimen Type: BLOOD SPECIMENOrdering Facility: [facility] Address:[address] [place], [place] [address]Performed By: #### 14877-8 ####[facility] LABIA [id number] [place] [address] [place] Platelets (Bld) [#/Vol]171 10*3/uQVqdfem204-115WtzinxtqsSelect Medical [facility], [place] on above:Order Comment: Specimen Type: BLOOD SPECIMENOrdering Facility: [facility] Address:[address] [place] [address] Performed By: #### 83919-1 ####[facility] [id number] [place] [address] [place] RBC (Bld) [#/Vol]4.03 10*6/uLNormal3.90-5.20[facility] [place] on above:Order Comment: Specimen Type: BLOOD SPECIMENOrdering Facility: [facility] Address:[address] [place], [place] [address]Performed By: #### 14467-3 ####[facility] LABIA [id number] [place] [address] [place] AMERICAWBC (Bld) [#/Vol]7.23 10*3/uLNormal3.70-11.00[facility] [place] on above:Order Comment: Specimen Type: BLOOD SPECIMENOrdering Facility: [facility] Address:[address] [place], [place] [address]Performed By: #### 62002-7 ####[facility] LABIA [id number] [place] [address] [facility] w/ Auto Diffon 05-03-2023 Basophil Absolute0.0 E9/LNormal0.0-0.2FWright-Patterson Medical CenterComment on above:Performed By: #### 7177338, 55129593, 1547680, 51176803 ####[address] [address]Zeqvfcpdc/100 WBC (Bld)0.6 %Normal0.0-2.0[facility] HospitalComment on above:Performed By: #### 9503779, 67936463, 5505685, 16802665 ####[address] [address]Xjd Absolute0.1 E9/LNormal0.0-0.5 [facility] HospitalComment on above:Performed By: #### 7387866, 42307070, 2970109, 14026201 ####[address] [address]Etjfyjvjgiw/100 WBC (Bld)2.2 %Normal0.0-8.0[facility] HospitalComment on above:Performed By: #### 5915342, 11705542, 9833078, 02881215 ####[address] [address]Quntapefvpi distribution width (RBC) [Ratio]14.0 %Normal 10.9-14.2FWright-Patterson Medical CenterComment on above:Performed By: #### 5629341, 00660130, 4144008, 80354443 ####[address] [address]Jiimofnmfz (Bld) [Volume fraction]38.0 %Normal 34.0-46.0[facility] HospitalComment on above:Performed By: #### 2789177, 54505581, 8616916, 53059431 ####[address] [address]Xmiourwwua (Bld) [Mass/Vol]12.8 g/lVKtzhmu17.0-16.0 [facility] HospitalComment on above:Performed By: #### 3814913, 55430054, 3405233, 63241176 ####[facility] [address] [place] [address]Wdcjk Absolute1.1 E9/LNormal1.0-4.0[facility] HospitalComment on above:Performed By: #### 1974439, 44518626, 2343335, 02864610 ####[address] [address]Yydktwecpsr/100 WBC (Bld)17.1 %Hdolua78.0-50.0[facility] Comment on above:Performed By: #### 4936102, 00761513, 6953741, 76220582 ####[address] [address]ZXR (RBC) [Entitic mass]29.9 btDihdda43.0-34.0[facility] HospitalComment on above:Performed By: #### 2197757, 32519584, 0050696, 71681521 ####[address] [address]TYAH (RBC) [Mass/Vol] 33.4 g/iOSdggvz62.4-36.0[facility] HospitalComment on above:Performed By: #### 3378584, 20155408, 6321722, 37164887 ####[address] [address]WBZ (RBC) [Entitic vol]89.6 fLNormal 80.0-100.0[facility] HospitalComment on above:Performed By: #### 9276151, 34480037, 8569759, 07304986 ####[address] [address]Okgw Absolute0.5 E9/LNormal0.2-1.0 [facility] HospitalComment on above:Performed By: #### 7910548, 76530319, 7096999, 19173912 ####[address] [address]Pvkkxkzqu/100 WBC (Bld)7.0 %Normal4.0-14.0[facility] HospitalComment on above:Performed By: #### 6643169, 65037812, 8992675, 89212430 ####[address] [address]Mwwumq Absolute4.8 E9/LNormal2.0-7.5FWright-Patterson Medical CenterComment on above:Performed By: #### 8240639, 80804291, 4847946, 23709863 ####[address] [address] Neutro Auto73.1 %Qribml73.0-75.0[facility] HospitalComment on above: Performed By: #### 6331830, 39810520, 4449683, 48757614 ####[address] [address]Doyuubom895.0 E9/LNormal 150.0-500.0[facility] HospitalComment on above:Performed By: #### 2019612, 26217212, 9312183, 06957885 ####[address] [address]Svyyjpli mean volume (Bld) [Entitic vol]7.5 fLNormal6.4-10.8[facility] HospitalComment on above:Performed By: #### 4529090, 64018478, 4620759, 95699245 ####[address] [address]CKA5.3 E12/LNormal4.3-5.9[facility] HospitalComment on above:Performed By: #### 4121835, 19145091, 7324932, 26405678 ####[address], [place] [address]IFR1.5 E9/LNormal4.0-11.0[facility] BaltimoreComment on above: Performed By: #### 9607866, 18542921, 2185871, 07887271 ####[facility] R[address] [place], [place] [address]QFZCGTWKNCwnsvwc By: Lab AVERYUser on 69-39-8885Tothvem [Mass/Vol]84 mg/iDMpglxk70 - 99 mg/dLPARKSIDE PSYCH[facility]ATR[facility] [place] POC SubsectionComment on above:Result Comment: Notified RN/MDPOC Device SN [id number] 1Invalid Interpretation CodePARKSIDE PSYCHIATRIC HOSPITAL CL[facility] [place] POC SubsectionPOC User [id number] 1Invalid Interpretation CodePARKSIDE PSYCH[facility]ATRIC [facility] [place] POC SubsectionPOC UsernameFPEARL GUZMAN Invalid Interpretation CodePARKSIDE PSYCHIATRIC [facility] [place] POC SubsectionCHEMISTRYOrdered By: SYSTEM SYSTEM on 01-40-1941Klxpj gap [Moles/Vol]13 mmol/LNormal6 - 16 mEq/LRemisol Chem Calcium [Mass/Vol]9.1 mg/dLNormal8.9 - 11.1 mg/dLRemisol ChemChloride [Moles/Vol]103 mmol/WLndblp507 - 111 mmol/LRemisol ChemCO2 [Moles/Vol]27 mmol/L Xbpvtg14 - 31 mmol/LRemisol ChemCreatinine [Mass/Vol]0.9 mg/dLNormal0.5 - 1.3 mg/dLRemisol OnxzaJRC06 mL/min/1.73 w8Tenvso>=59mL/min/1.73 v2Oltxsox Chem Glucose [Mass/Vol]82 mg/wGXyjrev26 - 199 mg/dLRemisol ChemPotassium [Moles/Vol] 4.0 mmol/LNormal3.5 - 5.3 mmol/LRemisol ChemSodium [Moles/Vol]139 mmol/LNormal 135 - 145 mmol/LRemisol ChemTroponin5.90 pg/mLLow10.10 - 27.10 pg/mLRemisol Chem Comment on above:Interpretive Data: The 95% CI (Confidence Interval) PPV (Positive Predictive Value) for myocardial infarction in females is 38 pg/mL, in males 51 pg/mL. The results should be used in conjunction withclinical conditions of myocardial infarction. (Access High Sensitivity Troponin I Instructions For Use, [facility], October 2017)Urea nitrogen [Mass/Vol]16 mg/dLNormal5 - 21 mg/dLRemisol ChemUrea nitrogen/Creatinine [Mass ratio]18 mg/vbAskirp25 - 20Remisol ChemCNCRITCRon 24-83-7053NOTFNSBSFaaxfkph Care Transport (CCT) CARLY MARCELINO ([id number]) 1940 F [address] Date Time Provider Department 05/03/23 ALDO WORRELL CCT During your visit today, we recorded the following information about you: Aldo Worrell APRN.CNP 05/03/2023 3:55 PM Signed CRITICAL CARE TRANSPORT MEDICAL CONTROL CONSULT NOTE Patient Name: Carly Marcelino Service Date: May 03, 2023 Referring Facility: [facility] Accepting Facility: [facility] REASON FOR TRANSPORT: Need for neurosurgical [...] home eliquis and plavix who presented to [facility] for evaluation of new onset vision [...] confirmed and read back via telephone with [facility] Transport rail crew member, Kt Mccoy RN SIGNATURE: Aldo Worrell APRN.[facility] Acute Care Nurse Practitioner Critical Care Transport [...] mg by mouth once daily. - omega 2-bxb-hlh-fish oil (FISH OIL) 100-160-1,000 mg cap Take by mouth. - Walker misc front wheeled walker dx left knee hematoma, Print Requisition, Compound - multivitamin (MULTIPLE VITAMINS ORAL) Refill(s) 0 - baclofen (LIORESAL) 10 mg tablet Baclofen Baclofen Active 5 MG Oral Daily at bedtime August 01, 2017 3:16pm 08-01-2017 [facility] (57229) - cetirizine 10 mg ODT Cetirizine Cetirizine Active 10 MG Oral Daily August 01, 2017 3:16pm 08-01-2017 [facility] (98010) - Cholecalciferol, Vitamin D3, (VITAMIN D-3) 2,000 unit cap Take by mouth once daily. - docusate sodium (COLACE) 100 mg capsule Take 100 mg by mouth once daily. as needed - magnesium oxide 400 mg cap Take by mouth once daily. - triamterene-hydrochlorothiazide (DYAZIDE) 37.5-25 mg per capsule Take [...] hydrALAZINE 5-10 mg injection (more content not included)...NormalAvita Health System SerPl-mCncon 60-46-2582WZF [Mass/Vol]mg/LNormal<0.9CC[facility] on above:Order Comment: Specimen Type: BLOOD SPECIMENOrdering Facility: [facility] Address:[address] [facility] [place], [place] [address]Ugkqlgnzx By: #### 2276-4, 14343-8, 22225-5, LIPNF, 1987-5, 58368-5, 2777-1 ####[facility] LABCLIA [id number] [place] [address] [place] AMERICACT Head or Brain w/o Contraston 81-79-6978JD Head or Brain w/o ContrastNormLouis Stokes Cleveland VA Medical CenterCalcium.ionized [Moles/Vol]on 26-44-6071Jtfxizr.ionized (Bld) [Mass/Vol] 1.18 mmol/LNormal1.08-1.30[facility] [place] on above:Order Comment: Specimen Type: BLOOD SPECIMENOrdering Facility: [facility] Address:[address] [place], [place] [address]Performed By: #### 1994-0 ####[facility] [id number] [address] STATES OF AMERICACalcium.ionized adjusted to pH 7.4 (Bld) [Moles/Vol]1.20 mmol/LNormal1.08-1.30[facility] [place] on above:Order Comment: Specimen Type: BLOOD SPECIMENOrdering Facility: [facility] Address:[address] [place] [address] Performed By: #### ####[facility] [id number] [place] [address] [place] Calcium.ionized (Bld) [Mass/Vol]1.21 mmol/LNormal1.08-1.30[facility] [place] on above:Order Comment: Specimen Type: BLOOD SPECIMENOrdering Facility: [facility] Address:[address] [place], [place] [address]Performed By: #### ####[facility] [id number] [place] [address] [place] Calcium.ionized adjusted to pH 7.4 (Bld) [Moles/Vol]1.20 mmol/LNormal1.08-1.30 [facility] [place] on above:Order Comment: Specimen Type: BLOOD SPECIMENOrdering Facility: [facility] Address:[address] [place], [place] [address]Performed By: #### 1995-0 ####[facility] LABCLIA [id number] [address] [address] [place] AMERICACapillary Glucose POCon 59-24-1150Ayvapst [Mass/Vol]84 mg/pWEvxcip39-84 [facility] HospitalComment on above:Result Comment: Notified RN/MD Performed By: #### [id number] ####[facility] Orcjoxob[address] [place], [place] [address]Vsqzhcwnamb in LDL Calc [Mass/Vol]on 05-03-2023 Cholesterol in LDL [Mass/Vol]58 mg/dL<100[facility] Comment on above:<100 mg/dL, Optimal 100-129 mg/dL, Near optimal/above optimal 130-159 mg/dL, Borderline high 160-189 mg/dL, High>189 mg/dL, Very highSecondary prevention optimal LDL Cholesterol levels are recommended to be < 70 mg/dL Cholesterol in VLDL Calc [Mass/Vol]on 21-14-3046Nfmgwltpdvi in VLDL [Mass/Vol]27 mg/dL<30[facility] Medical CenterComprehensive metabolic 2000 panelon 64-98-1561Qoqdhki [Mass/Vol]3.5 g/dLLow3.9-4.9CCleveland Clinic Fairview HospitalComment on above:Order Comment: Specimen Type: BLOOD SPECIMENOrdering Facility: [facility] Address:[address] [place] [address] Performed By: #### 2777-1, , ####[facility] LABCLIA [id number] [place]72[place] [address] [place] AMERICAALP [Catalytic activity/Vol]52 U/FRmsbfv93-171OqfbqbajvMercy Health Lorain Hospital Comment on above:Order Comment: Specimen Type: BLOOD SPECIMENOrdering Facility: [facility] Address:[address] [place] [address] Performed By: #### 2777-1, , ####[facility] LABCLIA [id number] [place] [address] [place] AMERICAALT [Catalytic activity/Vol]11 U/LNormal7-38[facility] Comment on above:Order Comment: Specimen Type: BLOOD SPECIMENOrdering Facility: [facility] Address:[address] [place] [address] Performed By: #### 2777-1, 07342-7, 08966-4 ####[facility] LABCLIA [id number] [address] [place] AMERICAAnion gap [Moles/Vol]9 mmol/LNormal9-18[facility] HospitalComment on above:Order Comment: Specimen Type: BLOOD SPECIMENOrdering Facility: [facility] Address:[address] [place] [address] Performed By: #### 2777-1, , 20565-2 ####[facility] LABCLIA [id number] [address] [place] AMERICAAST [Catalytic activity/Vol]18 U/UEzftgs84-26YibhpfpiqMercy Health Lorain Hospital Comment on above:Order Comment: Specimen Type: BLOOD SPECIMENOrdering Facility: [facility] Address:[address] [place] [address] Performed By: #### 2777-1, , 16373-0 ####[facility] LABCLIA [id number] [address] [place] AMERICABilirubin [Mass/Vol]0.2 mg/dLNormal0.2-1.3CC[facility] Comment on above:Order Comment: Specimen Type: BLOOD SPECIMENOrdering Facility: [facility] Address:[address] [place] [address] Performed By: #### 2777-1, , 85239-3 ####[facility] LABCLIA [id number] [address] [place] AMERICACalcium [Mass/Vol]9.1 mg/dLNormal8.5-10.2[facility] Comment on above:Order Comment: Specimen Type: BLOOD SPECIMENOrdering Facility: [facility] Address:[address] [place] [address] Performed By: #### 2777-1, , ####[facility] LABCLIA [id number] [place] [address] [place] AMERICAChloride [Moles/Vol]107 mmol/SZnup52-491IyzxrgfxzSelect [facility] [place] on above:Order Comment: Specimen Type: BLOOD SPECIMENOrdering Facility: [facility] Address:[address] [place] [address] Performed By: #### 2777-1, , ####[facility] LABCLIA [id number] [address] [place] AMERICACO2 [Moles/Vol]26 mmol/NPynsed93-88ChbjsoyjyMercy Health Lorain HospitalComment on above:Order Comment: Specimen Type: BLOOD SPECIMENOrdering Facility: [facility] Address:[address] [place], [place] [address]Performed By: #### 2777-1, , ####[facility] LABCLIA [id number] [address] [place] Creatinine [Mass/Vol]0.94 mg/dLNormal0.58-0.96[facility] [place] on above:Order Comment: Specimen Type: BLOOD SPECIMENOrdering Facility: [facility] Address:[address] [place] [address] Performed By: #### 2777-1, , ####[facility] LABCLIA [id number] [place] 8[address]395 [place] AMERICACreatinine and Glomerular filtration rate.predicted panel (S/P/Bld)60 mL/min/1.73m???Normal>=60[facility] [place] on above:Order Comment: Specimen Type: BLOOD SPECIMENOrdering Facility: [facility] Address:[address] [place], [place] [address]Result Comment: Estimated Glomerular Filtration Rate (eGFR) is calculated using the 2020 CKD-EPI cre atinine equation. This equation utilizes serum creatinine, sex, and age as parameters. The creatinine assay has traceable calibration to isotope dilution- mass spectrometry. Refer to KDIGO guidelines for clinical interpretation. In patients with unstable renal function, e.g. those with acute kidney injury, the eGFR may not accurately reflect actual GFR.Performed By: #### 2777-1, 86414-0, 27058-6 ####[facility] LABIA [id number] VILLE [address] [place] AMERICAGlucose [Mass/Vol]97 mg/dLNormal 74-99[facility] [place] on above:Order Comment: Specimen Type: BLOOD SPECIMENOrdering Facility: [facility] Address:[address] [place], [place] [address]Result Comment: The [place] Diabetes Association (ADA) provides guidance for cutoff [...] Standards of Medical Care in Diabetes 2016, [place] [employer] Association. Diabetes Care. 2016.39(Suppl 1).Performed By: #### 2777-1, 24261-7, 95462-8 ####[facility] LABIA [id number] [address] [place] AMERICAPotassium [Moles/Vol] 4.0 mmol/LNormal3.7-5.1CC[facility] on above:Order Comment: Specimen Type: BLOOD SPECIMENOrdering Facility: [facility] Address:[address] [place], [place] [address]Performed By: #### 2777-1, , ####[facility] LABCLIA [id number] [address] [place] AMERICAProtein [Mass/Vol]5.8 g/dLLow 6.3-8.0[facility] [place] on above:Order Comment: Specimen Type: BLOOD SPECIMENOrdering Facility: [facility] Address:[address] [place], [place] [address]Performed By: #### 2777-1, , ####[facility] LABCLIA [id number] VILLE [address] [place] AMERICASodium [Moles/Vol]142 mmol/L Csuuyk366-788LzogzgrqySelect Medical [facility] [place] on above:Order Comment: Specimen Type: BLOOD SPECIMENOrdering Facility: [facility] Address:[address] [place], [place] [address]Performed By: #### 2777-1, , ####[facility] LABCLIA [id number] VILLE [address] [place] AMERICAUrea nitrogen [Mass/Vol]18 mg/dL Normal7-21[facility] on above:Order Comment: Specimen Type: BLOOD SPECIMENOrdering Facility: [facility] Address:[address] [place], [place] [address]Performed By: #### 2777-1, , ####[facility] LABCLIA [id number] [address] [place] AMERICAAlbumin [Mass/Vol]3.6 g/dLLow 3.9-4.9CC[facility] on above:Order Comment: Specimen Type: BLOOD SPECIMENOrdering Facility: [facility] Address:[address] [place], [place] [address]Performed By: #### 2276-4, 43161-7, 35775-5, LIPNF, 1987-07, 18934-7, 2776-03 ####[facility] LABCLIA [id number] [address] [address] [place] AMERICAALP [Catalytic activity/Vol]50 U/RKsffpn35-834EcorgvgetSelect Medical [facility] [place] on above:Order Comment: Specimen Type: BLOOD SPECIMENOrdering Facility: [facility] Address:[address] [place], [place] [address]Performed By: #### 2276- 4, 92767-4, 37106-2, LIPNF, 1987-07, , 2776-03 ####[facility] LABCLIA [id number] [place] [address] [place] AMERICAALT [Catalytic activity/Vol]10 U/LNormal7-38[facility] on above:Order Comment: Specimen Type: BLOOD SPECIMENOrdering Facility: [facility] Address:[address] [place], [place] [address]Performed By: #### 2276-4, 29678-0, 40462-5, LIPNF, 1987-07, , 2776-03 ####[facility] LABIA [id number] [address] [address] [place] AMERICAAnion gap [Moles/Vol]8 mmol/LLow 9-18[facility] [place] on above:Order Comment: Specimen Type: BLOOD SPECIMENOrdering Facility: [facility] Address:[address] [place], [place] [id number] By: #### 2276-4, 69588-5, 94633-3, LIPNF, 1987-07, 84434-1, 2776-03 ####[facility] LABCLIA [id number] [address] [address] [place] AMERICAAST [Catalytic activity/Vol]17 U/IVmjuzh13-07QhiulglasSelect Medical [facility], [place] on above:Order Comment: Specimen Type: BLOOD SPECIMENOrdering Facility: [facility] Address:[address] [place], [place] [address]Performed By: #### 2276- 4, 50839-3, 15827-1, LIPNF, 1987-07, , 2776-03 ####[facility] LABCLIA [id number] [place] [address] [place] AMERICABilirubin [Mass/Vol]0.4 mg/dLNormal0.2-1.3CCleveland Clinic [facility] Hospital on above:Order Comment: Specimen Type: BLOOD SPECIMENOrdering Facility: [facility] Address:[address] [place], [place] [address]Performed By: #### 6-4, 59102-0, 53756-4, LIPNF, 1987-07, , 2776-03 ####[facility] LABCLIA [id number] [place] [address] [place] AMERICACalcium [Mass/Vol]9.0 mg/dLNormal 8.5-10.2CC[facility] on above:Order Comment: Specimen Type: BLOOD SPECIMENOrdering Facility: [facility] Address:[address] [place], [place] [address]Performed By: #### 6-4, 47155-0, 63956-4, LIPNF, 1987-07, , 2776-03 ####[facility] LABCLIA [id number] [place] [id number] [place] Chloride [Moles/Vol]106 mmol/VEnaf12-022BspgjttdvSelect Medical [facility] [place] on above:Order Comment: Specimen Type: BLOOD SPECIMENOrdering Facility: [facility] Address:[address] [place], [place] [address]Performed By: #### 2276-4, 17065-5, 70066-8, LIPNF, 1987-07, , 2776-03 ####[facility] LABCLIA [id number] [place] [id number] [place] AMERICACO2 [Moles/Vol]28 mmol/VZaddlm48-13OqwdwrrssSelect Medical [facility] [place] on above:Order Comment: Specimen Type: BLOOD SPECIMENOrdering Facility: [facility] Address:[address] [place], [place] [address]Performed By: #### 2276-4, 15568-6, 95900-6, LIPNF, 1987-07, , 2776-03 ####[facility] LABIA [id number] [place] [address] [place] AMERICACreatinine [Mass/Vol]0.81 mg/dL Normal0.58-0.96[facility] [place] on above:Order Comment: Specimen Type: BLOOD SPECIMENOrdering Facility: [facility] Address:[address] [place], [place] [address]Performed By: #### 2276-4, 90824-8, 50070-5, LIPNF, 1987-07, , 2776-03 ####[facility] LABIA [id number] [place] [address] [place] AMERICACreatinine and Glomerular filtration rate.predicted panel (S/P/Bld)72 mL/min/1.73m???Normal>=60[facility] [place] on above:Order Comment: Specimen Type: BLOOD SPECIMENOrdering Facility: [facility] Address:[address] [place], [place] [address]Result Comment: Estimated Glomerular Filtration Rate (eGFR) is calculated using the 2020 CKD-EPI cre atinine equation. This equation utilizes serum creatinine, sex, and age as parameters. The creatinine assay has traceable calibration to isotope dilution- mass spectrometry. Refer to KDIGO guidelines for clinical interpretation. In patients with unstable renal function, e.g. those with acute kidney injury, the eGFR may not accurately reflect actual GFR.Performed By: #### 2276-4, 23231-2, 15517-3, LIPNF, 1987-07, , 2776-03 ####[facility] LABCLIA [id number] [place] [id number] [place] AMERICAGlucose [Mass/Vol]91 mg/aBGuvphk02-05ZaiskbvwyMercy Health Lorain HospitalComment on above:Order Comment: Specimen Type: BLOOD SPECIMENOrdering Facility: [facility] Address:[address] [place], [place] [address]Result Comment: The [place] Diabetes Association (ADA) provides guidance for cutoff [...] Standards of Medical Care in Diabetes 2016, [place] Diabetes Association. Diabetes Care. 2016.39(Suppl 1).Performed By: #### 2276-4, 49116-3, 07255-3, LIPDIPTI, 1987-07, , 2776-03 ####[facility] LABCLIA [id number] [place] [id number] [place] AMERICAPotassium [Moles/Vol]4.0 mmol/LNormal3.7-5.1CC[facility] Comment on above:Order Comment: Specimen Type: BLOOD SPECIMENOrdering Facility: [facility] Address:[address] [place] [address] Performed By: #### 2276-4, 07215-2, 99886-2, LIPDIPTI, 1987-07, , 2776-03 ####[facility] LABIA [id number] [place] [id number] [place] AMERICAProtein [Mass/Vol]5.8 g/dLLow 6.3-8.0Mer[facility] Lorain HospitalComselect specialty hospital-[facility] on above:Order Comment: Specimen Type: BLOOD SPECIMENOrdering Facility: [facility] Address:[address] [place], [place] [address]Performed By: #### 2276-4, 19019-9, 65534-6, LIPNF, 1987-07, , 2776-03 ####[facility] LABIA [id number] [place] [id number] [place] AMERICASodium [Moles/Vol]142 mmol/USjmwss205-152JvnqlafnwSelect Medical [facility] [place] on above: Order Comment: Specimen Type: BLOOD SPECIMENOrdering Facility: [facility] Address:[address] [place], [place] [address]Performed By: #### 2276- 4, 41788-5, 44143-9, LIPNF, 1987-07, , 2776-03 ####[facility] LABIA [id number] [place] [id number] [place] AMERICAUrea nitrogen [Mass/Vol]12 mg/dLNormal7-21[facility] [place] on above:Order Comment: Specimen Type: BLOOD SPECIMENOrdering Facility: [facility] Address:[address] [place], [place] [address]Performed By: #### 2276-4, 06727-8, 18310-0, LIPNF, 1987-07, , 2776-03 ####[facility] [id number] [place] [id number] [place] AMERICAConsent for Treatmenton 36-22-4259Qpqhysd for Treatment [id number]#1.00TIFFNoBerger HospitalECG COMPLETEon 80-23-3766FLC COMPLETEVentricular Rate : 63 BPM Atrial Rate : 63 BPM P-R Interval : 190 ms QRS Duration : 90 ms Q-T Interval : 450 ms QTC Calculation(Bazett) : 460 ms Calculated P Firebaugh : 56 degrees Calculated R Firebaugh : -4 degrees Calculated T Firebaugh : 21 degrees NORMAL SINUS RHYTHM MINIMAL VOLTAGE CRITERIA FOR LVH, MAY BE NORMAL VARIANT ( R in aVL ) BORDERLINE ECG Confirmed by ARTEM ROBERTSON MD ([id number]) on 05/14/2023 8:29:38 AM NAME : CARLY MARCELINO PID : [id number] : 1940 Gender : Female Race : ORD : [id number] Procedure Date : May 03 2023 13:52:06 Edit Date : May 14 2023 08:29:39 Diagnosis: NORMAL SINUS RHYTHM MINIMAL VOLTAGE CRITERIA FOR LVH, MAY BE NORMAL VARIANT ( R in aVL ) BORDERLINE ECG Confirmed by ARTEM ROBERTSON MD ([id number]) on 05/14/2023 8:29:38 AM Test Reason : Arrhythmia Location : 22 : H22 H022-04 Overread By : ARTEM ROBERTSON MD Edited By : ARTEM ROBERTSON MD Referred By : STACIA DWYER Acquired by : Helder MCNEILLClinton Memorial Hospital Clinical Summary on 28-12-2701UG Clinical SummaryNormCrystal Clinic [facility]opedic [facility] Note-Physicianon 54-00-1154HD Note-PhysicianNoBerger Hospital Comment on above:Result Comment: Electronically Signed By: Stacia Dwyer DO\.br\Date and Time Signed: 05/03/23 11:45 ESTED Patient Education Noteon 18-83-9397LX Patient Education NoteNoTriHealth Patient Summaryon 26-70-6047AD Patient SummaryNoBerger Hospital Eosinophils/100 WBC Auto (Bld)on 18-89-3812Fdzvyzwrfri/100 WBC (Bld)1.8 % [facility] CenterErythrocyte distribution width Auto (RBC) [Ratio]on 87-41-3553Dtjjmpklhrf distribution width (RBC) [Ratio]14.2 %11.5-15.0 [facility] Medical CenterFerritin SerPl-mCncon 71-03-6094Ywsjlucp [Mass/Vol]166.0 ng/wLTbtogi69.7-205.1CCleveland Clinic Fairview HospitalComment on above: Order Comment: Specimen Type: BLOOD SPECIMENOrdering Facility: [facility] Address:[address] [place], [place] [address]Performed By: #### 5336- 4, 15895-8, 48278-6, LIPNF, 1987-5, 71929-3, 2777-1 ####[facility] LABIA [id number] [place] [id number] [place] AMERICAGlucose mean value [Mass/volume] in Blood Estimated from glycated hemoglobinon 27-21-6736Bzoadnk glucose Estimated from glycated hemoglobin (Bld) [Mass/Vol]94 mg/dLCincinnati Children'S Hospital Medical CenterComment on above:eAG: (Estimated average glucose) is a calculated value from HgbA1c and is sales representative aircraft of the average blood glucose level in the last 2-3 month period. HEMATOLOGYOrdered By: SYSTEM SYSTEM on 62-67-9086Mscutxuc Absolute0.0 E9/LNormal 0.0 - 0.2 E9/LRemisol HemeBasophils/100 WBC (Bld)0.6 %Normal0.0 - 2.0 %Remisol HemeEos Absolute0.1 E9/LNormal0.0 - 0.5 E9/LRemisol HemeEosinophils/100 WBC (Bld)2.2 %Normal0.0 - 8.0 %Remisol HemeErythrocyte distribution width (RBC) [Ratio]14.0 %Glqryq15.9 - 14.2 %Remisol HemeHematocrit (Bld) [Volume fraction] 38.0 %Wdughh07.0 - 46.0 %Remisol HemeHemoglobin (Bld) [Mass/Vol]12.8 g/dLNormal 12.0 - 16.0 gm/dLRemisol HemeLymph Absolute1.1 E9/LNormal1.0 - 4.0 E9/LRemisol HemeLymphocytes/100 WBC (Bld)17.1 %Jyfddp91.0 - 50.0 %Remisol HemeMCH (RBC) [Entitic mass]29.9 tzBhglbw32.0 - 34.0 pgRemisol HemeMCHC (RBC) [Mass/Vol]33.4 g/iYWfelzy14.4 - 36.0 gm/dLRemisol HemeMCV (RBC) [Entitic vol]89.6 xVKmoqcb58.0 - 100.0 fLRemisol HemeMono Absolute0.5 E9/LNormal0.2 - 1.0 E9/LRemisol Heme Monocytes/100 WBC (Bld)7.0 %Normal4.0 - 14.0 %Remisol HemeNeutro Absolute4.8 E9/LNormal2.0 - 7.5 E9/LRemisol HemeNeutro Auto73.1 %Apgmle39.0 - 75.0 %Remisol CnmkIyzmyvul003.0 E9/ULunkid286.0 - 500.0 E9/LRemisol HemePlatelet mean volume (Bld) [Entitic vol]7.5 fLNormal6.4 - 10.8 fLRemisol HemeRBC4.3 E12/LNormal4.3 - 5.9 E12/LRemisol HemeWBC6.5 E9/LNormal4.0 - 11.0 E9/LRemisol HemeHISTORY PHYSICALon 43-89-4996PCIFABC PHYSICALHNO ID: [id number] Author: MARV RECINOS MD Service: Neurology ICU Author Type: Resident Type: H&P Filed: 05/03/2023 17:40 Note Text: Attestation signed by Jass Penn [...] (HCC) Primary hypertension Coronary artery disease involving [place] coronary artery of [place] heart without angina pectoris Mixed hyperlipidemia Sciatica of right side Uncomplicated asthma IVANA (iron deficiency anemia) Resolved Problems: * No resolved hospital problems. * PLAN Neuro checks Stability CTH with MRI/MRA Keep sbp<160 Pain control LEV for 3 days prophylaxis Stroke and nsgy consult Please see the documented meyfce-cg-ekkmsq plan in the updated problem list. [facility] Staff Physician note of personal involvement in Care: I was personally involved in the care of this patient. The required my full attention and direct personal management. 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 If printed, please do not remove from the chart or modify printed copy. SERVICE DATE: 05/03/2023 SERVICE TIME: 5:38 PM [...] event. WISDOM caused patient to present to [facility] ED where CTH and CTA was unremarkable. [...] Bilateral shoulder injury before 1999 working in [employer] home - Cataract of left eye - [...] - Adhesive Tape (Callie* (more content not included)...NormalParkview Health Montpelier HospitalTORY PHYSICALHNO ID: [id number] Author: ANNETTA SHARPE APRN.MANUFACTURERS REPRESENTATIVE Service: Neurosurgery Author Type: Nurse Practitioner Type: H&P Filed: 05/03/2023 14:18 Note Text: Neurosurgery Subarachnoid Hemorrhage History and Physical Exam PATIENT NAME: Carly Marcelino PRIMARY CARE PHYSICIAN: Hardeep Mckenzie DO CHIEF COMPLAINT: don't feel right HISTORY OF PRESENT ILLNESS: Carly Marcelino is a 82 year old right-handed woman w/PMH seizure disorder (forceps delivery at ), HTN, CAD/NV s/p PCI/Stent 12/01 on MADHAVI, BLE DVT [...] Bilateral shoulder injury before 1999 working in [employer] home Cataract of left eye Cataracts, bilateral HTN (hypertension) Hyperlipidemia Lung nodule 06/2015 Macular degeneration DESTINY (obstructive sleep apnea) s/p pharyngoplasty no cpap Pseudophakia of right eye PAST SURGICAL HISTORY PAST SURGICAL HISTORY Procedure Laterality Date EXCISION CHE NEUROMA EACH x3 LASER SURGERY OF EYE 2002 correction of arterial hemmorhage left eye PAST SURGICAL HISTORY OF breast bx PAST SURGICAL HISTORY OF 2000 L3-5 laminectomy PAST SURGICAL HISTORY OF bilateral heal spurs PAST SURGICAL HISTORY OF Left 01/20/15 left total reverse shoulder surgery PAST SURGICAL HISTORY OF Right 7/20/16 right total reverse shoulder surgery PHARYNGOPLASTY (RECONSTRUCTION [...] mg by mouth once daily.Disp: Rfl: omega 1-dji-wfp-fish oil (FISH OIL) 100-160-1,000 mg capTake by mouth.Disp: Rfl: Walker misc front wheeled walker dx left knee hematoma, Print Requisition, CompoundDisp: Rfl: multivitamin (MULTIPLE VITAMINS ORAL) Refill(s) 0Disp: Rfl: baclofen (LIORESAL) 10 mg tabletBaclofen Baclofen Active 5 MG Oral Daily at bedtime August 01, 2017 3:16pm 08-01-2017 [facility] ([id number])Disp: Rfl: cetirizine 10 mg ODTCetirizine Cetirizine Active 10 MG Oral Daily August 01, 2017 3:16pm 08-01-2017 [facility] ([id number])Disp: Rfl: Cholecalciferol, Vitamin D3, (VITAMIN D-3) 2,000 unit capTake by mouth once daily.Disp: Rfl: docusate sodium (COLACE) 100 mg capsuleTake 100 mg by mouth once daily. as neededDisp: Rfl: magnesium oxide 400 mg capTake by mouth once daily.Disp: Rfl: triamterene-hydrochlorothiazide (DYAZIDE) 37.5-25 mg per capsuleTake 1 capsule by mouth once daily.Disp: Rfl: Vitamin E, dl, acetate, 1,000 unit capsuleTake 1,000 Units by mouth once daily.Disp: Rfl: B Complex Vitamins capsuleTake 1 capsule by mouth once daily.Disp: Rfl: losartan (COZAAR) 100 mg tabletTake 10 (more content not included)...Normal [facility] HospitalHbA1c (Bld)on 56-41-6244Yvsfwpi glucose Estimated from glycated hemoglobin (Bld) [Mass/Vol]94 mg/dLNormalCCleveland Clinic Fairview Hospital Comment on above:Order Comment: Specimen Type: BLOOD SPECIMENOrdering Facility: [facility] Address:[address] [place], [place] [address]Result Comment: eAG: (Estimated average glucose) is a calculated value from HgbA1c and is sales representative aircraft of the average blood glucose level in the last 2-3 month period.Performed By: #### 77206-2 ####[facility] LABCLIA [id number] [place] [address] [place] HbA1c (Bld) [Mass fraction]4.9 %Normal4.3-5.6CCleveland Clinic Fairview HospitalComment on above:Order Comment: Specimen Type: BLOOD SPECIMENOrdering Facility: [facility] Address:[address] [place], [place] [address]Result Comment: [place] Diabetes Association guidelines indicate that patients with HgbA1c in the range 5.7-6.4% are at increased risk for development of diabetes, and intervention by lifestyle modification may be beneficial. HgbA1c greater or equal to 6.5% is considered diagnostic of diabetes.Performed By: #### 01805-8 ####[facility] LABCLIA [id number] [place] [address] [place] AMERICAHematocrit Auto (Bld) [Volume fraction]on 78-50-2541Rggiayhahz (Bld) [Volume fraction]35.6 %36.0-46.0[facility] Medical CenterHemoglobin [Mass/volume] in Bloodon 09-66-7925Daulnqidtr (Bld) [Mass/Vol]11.5 g/dL11.5-15.5FWilson Memorial HospitalINR in Platelet poor plasma by Coagulation assayon 88-27-2804EVM Coag (PPP) [Relative time]1.0 {INR}0.9-1.3FWilson Memorial HospitalComment on above:Vitamin K Antagonist (VKA) Therapeutic Range: INR 2 to 3 (Target INR of 2.5)Note: For patients treated with VKA drugs, such as warfarin, the [place] College of Chest Physicians 2012 Guideline recommends [...] al. Chest 2012, 141:7S-47SNishcaitlin RA, et al. JAC 2017, 70: 252-289Iron and Iron binding capacity panelon 73-97-0412Ckva [Mass/Vol]66 ug/sJSbxmmg00-418ZvvcvrsvfSelect Medical [facility] [place] on above:Order Comment: Specimen Type: BLOOD SPECIMENOrdering Facility: [facility] Address:[address] [place], [place] [address]Performed By: #### 2276-4, 40999-3, 13672-7, LIPNF, 1987-07, , 2776-03 ####[facility] LABCLIA [id number] [place] [id number] STATES OF WHITE HOSPITALIron binding capacity [Mass/Vol] 233 ug/qSVzbnau406-905AldzfvlknSelect Medical [facility], [place] on above:Order Comment: Specimen Type: BLOOD SPECIMENOrdering Facility: [facility] Address:[address] [place], [place] [address]Performed By: #### 2276-4, 23891-3, 50108-6, LIPNF, 1987-07, , 2777-1 ####[facility] LABCLIA [id number] [address] [address] [place] AMERICAIron/TIBC [Molar ratio]28.3 %Phcnap30.0-57.0[facility] Comment on above:Order Comment: Specimen Type: BLOOD SPECIMENOrdering Facility: [facility] Address:[address] [place] [address] Performed By: #### 2276-4, 42764-5, 01926-7, LIPNF, 1987-07, 22975-9, 277- ####[facility] LABCLIA [id number] [address] [address] [place] AMERICAIron binding capacity [Mass/volume] in Serum or Plasmaon 49-40-5738Piol binding capacity [Mass/Vol]233 ug/nX977-772KoxgrqifaCincinnati Children'S Hospital Medical CenterIron saturation [Mass Fraction] in Serum or Plasmaon 44-54-3760Rhhq saturation [Mass fraction]28.3 %15.0-57.0 [facility] Medical CenterLIPID PANEL, NONFASTINGon 61-92-1518Ulaknplzapc [Mass/Vol]125 mg/dLNormal<200[facility] HospitalComment on above:Order Comment: Specimen Type: BLOOD SPECIMENOrdering Facility: [facility] Address:[address] [place] [address]Hzzjzc Comment: <200 mg/dL, Desirable 200-239 mg/dL, Borderline high >239 mg/dL, HighPerformed By: #### 2276-4, 97592-9, 93385-8, LIPNF, 1987-07, 06982-3, 277- ####[facility] LABIA [id number] [address] [address] [place] AMERICAHDL CHOLESTEROL, NF40 mg/dLNormal>39[facility] [place] on above:Order Comment: Specimen Type: BLOOD SPECIMENOrdering Facility: [facility] Address:[address] [place] [address]Pkjlvn Comment: 40-59 mg/dL, Acceptable >59 mg/dL, High: Negative risk factor for coronary heart disease <40 mg/dL, Low: Positive risk factor for coronary heart diseasePerformed By: #### 6-4, 85845-9, 11893-0, LIPNF, 1987-07, , 2776-03 ####[facility] LABCLIA [id number] [address] OF WHITE HOSPITALLDL CHOLESTEROL, NF58 mg/dLNormal<100[facility] [place] on above:Order Comment: Specimen Type: BLOOD SPECIMENOrdering Facility: [facility] Address:[address] [place], [place] [address]Result Comment: <100 mg/dL, Optimal 100-129 mg/dL, Near optimal/above optimal 130-159 mg/dL, Borderline high 160-189 mg/dL, High >189 mg/dL, Very high Secondary prevention optimal LDL Cholesterol levels are recommended to be < 70 mg/dLPerformed By: #### 2276-4, 30414-3, 89378-5, LIPNF, 1987-07, , 2776-03 ####[facility] LABCLIA [id number] [address] STATES OF WHITE HOSPITALLDL/HDL RATIO, NF1.45 mg/dLNormal <2.54[facility] [place] on above:Order Comment: Specimen Type: BLOOD SPECIMENOrdering Facility: [facility] Address:[address] [place], [place] [address]Result Comment: Reference: 1. National Cholesterol Education Program ATP III Guideline At-A-Glance Quick Desk Reference: National Heart, Lung, and Blood [place]. National Institutes of Health. 2001: NIH Publication No. 01-3305. 2. An International Atherosclerosis Society position paper: global recommendations for the management of dyslipidemia: executive summary, Atherosclerosis. 2014: 232(2):410-413.Performed By: #### 2276-4, 97986-1, 9, LIPNF, 1987-07, , 2776-03 ####[facility] LABCLIA [id number] [address] [place] NON HDL CHOL, NF85 mg/dLNormal<130[facility] [place] on above: Order Comment: Specimen Type: BLOOD SPECIMENOrdering Facility: [facility] Address:[address] [place] [address]Prtbqd Comment: <130 mg/dL, Optimal 130-159 mg/dL, Near optimal/above optimal 160-189 mg/dL, Borderline high 190-219 mg/dL, High >219 mg/dL, Very high Secondary prevention optimal non HDL Cholesterol levels are recommended to be <100 mg/dLPerformed By: #### 6-4, 58094-7, 56257-7, LIPNF, 1987-07, 64312-7, 2776-03 ####[facility] LABCLIA [id number] [place] [address] [place] WHITE HOSPITALT CHOL/HDL RATIO NF3.13 mg/dL Normal<5.10[facility] [place] on above:Order Comment: Specimen Type: BLOOD SPECIMENOrdering Facility: [facility] Address:[address] [place], [place] [address]Performed By: #### 6-4, 52031-7, 58911-1, LIPNF, 1987-07, , 2776-03 ####[facility] LABCLIA [id number] [place] [address] [place] TRIGLYCERIDES, NF136 mg/dLNormal<150[facility] [place] on above: Order Comment: Specimen Type: BLOOD SPECIMENOrdering Facility: [facility] Address:[address] [place] [address]Junead Comment: <150 mg/dL, Normal 150-199 mg/dL, Borderline high 200-499 mg/dL, High >499 mg/dL, Very highPerformed By: #### 2276-4, 42520-1, 86221-9, LIPNF, 1987-07, 83142-8, 2776-03 ####[facility] LABCLIA [id number] [place] [address] [place] AMERICAVLDL CHOLESTEROL, NF27 mg/dLNormal<30[facility] HospitalComment on above:Order Comment: Specimen Type: BLOOD SPECIMENOrdering Facility: [facility] Address[address] [place], [place] [address]Performed By: #### 2276-4, 78275-9, 11050-2, LIPNF, 1987-5, 74386-5, 2777-1 ####[facility] LABCLIA [id number] [place] [address] [place] AMERICALaboratory - Chemistry and Chemistry - challengeon 74-91-9987Mzohuyz [Mass/Vol]3.5 g/dL3.9-4.9[facility] Medical CenterALP [Catalytic activity/Vol]52 U/G73-344TwusbvwxoCincinnati Children'S Hospital Medical CenterALT [Catalytic activity/Vol]11 U/L7-38[facility] Medical CenterAST [Catalytic activity/Vol]18 U/T36-76OrmeejzzmCincinnati Children'S Hospital Medical CenterBilirubin [Mass/Vol]0.2 mg/dL0.2-1.3FWilson Memorial HospitalCalcium [Mass/Vol]9.1 mg/dL 8.5-10.2FWilson Memorial HospitalChloride [Moles/Vol]107 mmol/L97-105 [facility] Medical CenterCO2 [Moles/Vol]26 mmol/T18-38CpgefaazjCincinnati Children'S Hospital Medical CenterCreatinine [Mass/Vol]0.94 mg/dL0.58-0.96[facility] Medical CenterGlucose [Mass/Vol]97 mg/tI06-87YnzsiylxwCincinnati Children'S Hospital Medical Center Comment on above:The [place] Diabetes Association (ADA) provides guidance for cutoff values for fasting glucose andrandom glucose. The ADA defines fasting as no caloric intake for at least 8 hours. Fasting plasma glucose results between 100 to 125 mg/dL indicate increased risk for diabetes (prediabetes).Fasting pl asma glucose results greater than or equal to 126 mg/dL meet the criteria for diagnosis of diabetes. In the absence of unequivocal hyperglycemia, results should be confirmed by repeat testing. In a patient with classic symptoms of hyperglycemia or hyperglycemic crisis, random plasma glucose resultsgreater than or equal to 200 mg/dL meet the criteria for diagnosis of diabetes.Reference: Standardsof Medical Care in Diabetes 2016, [place] Diabetes Association. Diabetes Care. 2016.39(Suppl 1).Magnesium [Mass/Vol]2.0 mg/dL1.7-2.3FWilson Memorial HospitalPotassium [Moles/Vol]4.0 mmol/L3.7-5.1FWilson Memorial HospitalProtein [Mass/Vol]5.8 g/dL6.3-8.0[facility] Sodium [Moles/Vol]142 mmol/N247-346IthnnaaqqCincinnati Children'S Hospital Medical CenterUrea nitrogen [Mass/Vol]18 mg/dL7-21[facility] Medical CenterCholesterol [Mass/Vol]125 mg/dL<200[facility] Medical CenterComment on above:<200 mg/dL, Desirable 200-239 mg/dL, Borderline high>239 mg/dL, HighCholesterol in HDL [Mass/Vol]40 mg/dL>39[facility] Medical CenterComment on above:40-59 mg/dL, Acceptable>59 mg/dL, High: Negative risk factor for coronary heart disease<40 mg/dL, Low: Positive risk factor for coronary heart diseaseFerritin [Mass/Vol]166.0 ng/mL14.7-205.1FWilson Memorial HospitalIron [Mass/Vol] 66 ug/uB49-649FackzenbzCincinnati Children'S Hospital Medical CenterTriglyceride [Mass/Vol]136 mg/dL <150C[facility] Medical CenterComment on above:<150 mg/dL, Normal 150-199 mg/dL, Borderline high 200-499 mg/dL, High>499 mg/dL, Very highLaboratory - Hematology and Cell countson 24-34-4177Xxwtfgmxdib (Bld) [#/Vol]0.12 10*3/uL <0.46[facility] Medical CenterImmature granulocytes/100 WBC (Bld)0.3 % [facility] Medical CenterHbA1c (Bld) [Mass fraction]4.9 %4.3-5.6 [facility] CenterComment on above:[place] Diabetes Association guidelines indicate that patients with HgbA1c in the range 5.7-6.4% are at increased risk for development of diabetes, and intervention by lifestyle modification may be beneficial. HgbA1c greater or equal to 6.5% is considered diagnostic of diabetes.Leukocytes [#/volume] corrected for nucleated erythrocytes in Blood by Automated counon 37-64-6515IDW corrected for nucl RBC Auto (Bld) [#/Vol]6.60 k/uL3.70-11.00[facility] Lymphocytes Auto (Bld) [#/Vol]on 80-94-3289Zkqclddstof (Bld) [#/Vol]1.43 10*3/uL 1.00-4.00[facility] Medical CenterLymphocytes/100 WBC Auto (Bld)on 40-39-9582Zvtfavftlxy/100 WBC (Bld)21.7 %[facility] HospitalH Auto (RBC) [Entitic mass]on 00-11-9463PHP (RBC) [Entitic mass]29.7 pg26.0-34.0 [facility] Medical CenterMCHC Auto (RBC) [Mass/Vol]on 43-49-4334YGEA (RBC) [Mass/Vol]32.3 g/dL30.5-36.0[facility] Medical CenterMCV Auto (RBC) [Entitic vol]on 36-75-4765VDA (RBC) [Entitic vol]92.0 fL80.0-100.0 [facility] Medical CenterMagnesium SerPl-mCncon 41-17-1948Pbufpemfa [Mass/Vol]2.0 mg/dLNormal1.7-2.3CCleveland Clinic Avon Hospital on above:Order Comment: Specimen Type: BLOOD SPECIMENOrdering Facility: [facility] Address:[address] [place], [place] [address]Performed By: #### 2777- 1, 94002-9, 74118-4 ####[facility] LABCLIA [id number] [address] STATES OF AMERICAMagnesium [Mass/Vol]2.0 mg/dLNormal1.7-2.3CCleveland Clinic [facility] on above:Order Comment: Specimen Type: BLOOD SPECIMENOrdering Facility: [facility] Address:[address] [place], [place] [address]Performed By: #### 2276- 4, 90714-6, 88134-1, LIPNF, 1988-5, 59806-4, 2777-1 ####[facility] LABCLIA [id number] [address] [place] [address] [place] OF AMERICAMonitor Recordon 92-49-3710Gaytwbq Record [id number]#1.00TIFFNormalFisher Sinai Hospital Of BaltimoreMonocytes Auto (Bld) [#/Vol]on 85-26-1595Jhmdivcdc (Bld) [#/Vol]0.60 10*3/uL<0.87[facility] Medical CenterMonocytes/100 WBC Auto (Bld)on 45-67-9087Pumftpgdz/100 WBC (Bld)9.1 %[facility] Neutrophils Auto (Bld) [#/Vol]on 12-20-8000Wdajesbsmfg (Bld) [#/Vol]4.39 10*3/uL 1.45-7.50[facility] Medical CenterNeutrophils/100 WBC Auto (Bld)on 50-16-5867Vmexwyaonse/100 WBC (Bld)66.5 %[facility] Medical CenterNo Panel Informationon 79-01-5298Plekpqosy GFR (CKD-EPI)60 mL/min/1.73m???>=60 [facility] Medical CenterComment on above:Estimated Glomerular Filtration Rate (eGFR) is calculated using the 2020 CKD-EPI creatinine equation. This equation utilizes serum creatinine, sex, and age as parameters. The creatinine assay has traceable calibration to isotope dilution-mass spectrometry. Refer to KDIGO guidelines for clinical interpretation. In patients with unstable renal function, e.g. those with acute kidney injury, the eGFRmay not accurately reflect actual GFR.Immature Granulocyte # (Auto)<0.03 k/uL<0.10 [facility] Medical CenterIonized Calcium (pH Adjusted)1.20 mmol/L 1.08-1.30[facility] Medical CenterPhosphorus Level3.1 mg/dL2.7-4.8 [facility] Memorial Hospitaltaphylococcus aureus (PCR)(LAB)See comment NegativeCincinnati Children'S Hospital Medical CenterComment on above:Negative for Staphylococcus aureus by PCR.Negative for MRSA by PCRC-Reactive Protein, Quantitative<0.3 mg/dL<0.9[facility] Medical CenterCholesterol Ratio (LDL/HDL)1.45 mg/dL<2.54C[facility] Medical CenterComment on above: Reference:1. National Cholesterol Education Program ATP III Guideline At-A-Glance Quick Desk Reference: National Heart, Lung, and Blood [place]. National Institutes of Health. 2001: NIH PublicationNo. 01-3305.2. An International Atherosclerosis Society position paper: global recommendations for the management of dyslipidemia: executive summary, Atherosclerosis. 2014: 232(2):410-413.Non-HDL Enpotsipelx35 mg/dL<130[facility] Comment on above:<130 mg/dL, Optimal 130-159 mg/dL, Near optimal/above optimal 160-189 mg/dL, Borderline high 190-219 mg/dL, High>219 mg/dL, Very highSecondary prevention optimal non HDL Cholesterol levels are recommended to be <100 mg/dL Nucleated RBC Auto (Bld) [#/Vol]on 03-74-7335Lzzttuggu RBC (Bld) [#/Vol]10*3/uL <0.01[facility] Medical CenterNucleated erythrocytes [Presence] in Blood by Automated counton 81-17-6755Zmclpwapt RBC Auto Ql (Bld)0.0 /100{WBC} [facility] CenterPT panel Coag (PPP)on 26-31-1601ZIN Coag (PPP) [Relative time]1.0 {INR}Normal0.9-1.3CCleveland Clinic Fairview HospitalComment on above: Order Comment: Specimen Type: BLOOD SPECIMENOrdering Facility: [facility] Address:[address] [place], [place] [address]Emkbbm Comment: Vitamin K Antagonist (VKA) Therapeutic Range: INR 2 to 3 (Target INR of 2.5) Note: For patients treated with VKA drugs, such as warfarin, the [place] College [employer] Chest [employer]icians 2012 Guideline recommends [...] Chest 2012, 141:7S-47S Maribel RA, et al. [facility] 2017, 70: 252-289Performed By: #### 06888-0, 31858-2 ####[facility] LABIA [id number] [place] [address] [place] OF AMERICAPT Coag (PPP) [Time]10.7 sNormal 9.7-13.0[facility] on above:Order Comment: Specimen Type: BLOOD SPECIMENOrdering Facility: [facility] Address:[address] [place], [place] [address]Performed By: #### 28973-2, 38490-2 ####[facility]OSPITALIA [id number] [place] [address] [place] AMERICAPhosphate SerPl-mCncon 20-14-0432Czhktnyph [Mass/Vol]3.1 mg/dLNormal2.7-4.8CC[facility] Clinic [facility] on above:Order Comment: Specimen Type: BLOOD SPECIMENOrdering Facility: [facility] Address:[address] [place], [place] [address]Performed By: #### 2777- 1, 56800-6, 88452-6 ####[facility] HOSPITALIA [id number] [place] [address] [place] AMERICAPhosphate [Mass/Vol]2.8 mg/dLNormal2.7-4.8CC[facility] on above:Order Comment: Specimen Type: BLOOD SPECIMENOrdering Facility: [facility] Address:[facility] [place], [place] [address]Performed By: #### 2276- 4, 95005-0, 27542-9, LIPNF, 1988-5, 83361-7, 2777-1 ####[facility] LABCLIA [id number] [place] [address] [place] AMERICAPlatelet mean volume Auto (Bld) [Entitic vol]on 05-03-2023 Platelet mean volume (Bld) [Entitic vol]9.4 fL9.0-12.7FWilson Memorial HospitalPlatelets Auto (Bld) [#/Vol]on 65-36-6876Nlihpbvro (Bld) [#/Vol]177 10*3/oS208-305YuaebawfeCincinnati Children'S Hospital Medical CenterPre-Arrival Noteon 77-57-2555Oqz- Arrival NoteNoBerger HospitalProthrombin time (PT)on 05-03-2023 PT Coag (PPP) [Time]10.7 s9.7-13.0C[facility] Medical CenterRBC Auto (Bld) [#/Vol]on 87-35-5755VUQ (Bld) [#/Vol]3.87 10*6/uL3.90-5.20[facility] Memorial HospitalTAPH AUREUS PCRon 05-03-2023S. aureus and MRSA panel ALEXANDRU+probe (Nose)NormalNegativeMercy Health Lorain HospitalComment on above:Order Comment: Specimen Type: SWAB OF INTERNAL NOSEOrdering Facility: [facility] Address: [address] [place], [place] [address]Result Comment: Negative for Staphylococcus aureus by PCR. Negative for MRSA by PCRPerformed By: #### SAPCR ####[facility] LABCLIA [id number] [place] [address] [place] AMERICASerum ionized calcium measurement using ion specific electrode (mass/volume)on 62-35-9522Tuyfdge.ionized ISE [Mass/Vol]1.18 mmol/L1.08-1.30 [facility] Memorial Hospitalerum or plasma anion gap determinationon 30-17-7037Hgbrf gap [Moles/Vol]9 mmol/L9-18FWilson Memorial Hospital Serum or plasma total cholesterol/high density lipoprotein (HDL) cholesterol mass roseanne 20-37-1102Gsppdlsvlew.total/Cholesterol in HDL [Mass ratio]3.13 mg/dL <5.10[facility] CenterTYPE + SCREENon 85-77-9820OVSIMyxisp [facility] Toledoment on above:Order Comment: Specimen Type: BLOOD SPECIMENOrdering Facility: [facility] Address:[address] [place], [place] [address]Performed By: #### TSCR ####CC MAIN BLOOD BANKCLIA [id number] [address]REETHISTORICAL AB SCR STATUSNegativeNoalCCleveland Clinic Avon Hospital on above:Order Comment: Specimen Type: BLOOD SPECIMENOrdering Facility: [facility] Address:[address] [place] [address] Performed By: #### TSCR ####CC MAIN BLOOD BANKCLIA [id number] [address] OF WHITE HOSPITALRh Nom (Bld)Positive NormalSelect Medical [facility] on above:Order Comment: Specimen Type: BLOOD SPECIMENOrdering Facility: [facility] Address:[address] [place], [place] [address]Performed By: #### TSCR ####CC MAIN BLOOD BANKCLIA [id number] [place] [address] [place] WHITE HOSPITALTYPE AND SCREEN YMEMDYHTSF23/25/2024 23:59NormMarietta Memorial Hospital on above:Order Comment: Specimen Type: BLOOD SPECIMENOrdering Facility: [facility] Address:[address] [place], [place] [address]Performed By: #### TSCR ####CC MAIN BLOOD BANKCLIA [id number] [place] [id number] [place] OF AMERICATransfer Documentson 18-16-9251Dgypoyhb [id number]#1.00TIFF NormalAvita Health System Bucyrus HospitalTroponin 0 Hr.on 52-41-0646Epghhdku4.90 pg/mL Low10.10-27.10[facility]cy[facility] HospitalComment on above:Result Comment: The 95% CI (Confidence Interval) PPV (Positive Predictive Value) for myocardial infa rction in females is 38 pg/mL, in males 51 pg/mL. The results should be used in conjunction with clinical conditions of myocardial infarction.(Access High Sensitivity Troponin I Instructions For Use,[facility], October 2017) Performed By: #### [id number], [id number], [id number], [id number] ####[facility] [address] [place], [place] [address]NB CHEST 1V FRONTAL PORTon 25-41-1996TV CHEST 1V FRONTAL PORT* * *Final Report* * * DATE OF [...] Other: Bilateral shoulder arthroplasties. IMPRESSION: See result. Shingle Carrier: PSCB Transcribe Date/Time: May 03 2023 7:48P Dictated by : ANANDA CANSECO MD This examination was interpreted and the report reviewed and electronically signed by: ANANDA CANSECO MD on May 03 2023 7:51PM EST [id number] Health Lorain HospitalXR Chest Single Viewon 75-64-5384MJ Chest Single ViewNormalAvita Health System Bucyrus HospitalaPTT PPPon 19-47-3814sADY Coag (PPP) [Time]29.4 lRyynkb77.0-32.4CC[facility] Clinic [facility] Comment on above:Order Comment: Specimen Type: BLOOD SPECIMENOrdering Facility: [facility] Address:[address] [place] [address] Performed By: #### 35803-0, 35813-7 ####[facility] LABCLIA [id number] [facility] HOSPITALDESK [id number] [place] [address] [place] eGFRon 22-64-3309dPBV77 mL/min/1.73 r4Kyahum>=59[facility] Comment on above:Order Comment: Order added by Discern Expert.Performed By: #### [id number], [id number], [id number], [id number] ####[facility] [address] [place], [place] [address]QX venous duplex LE BIon 16-78-2044JC venous duplex LE [facility] Main [address] [address] Ultrasound Report Signed Patient: Carly Marcelino MR#: [id number] : 1940 Acct:[id number] Age/Sex: 82 / F ADM Date: 04/30/23 Loc: ER Room: Type: [facility] ER Attending Dr: Ordering Provider: [...] Ross Sandy MD05/01/2023 9:51 AM Dictation Location: [facility]04 Tech: Daina Hernandezkyleminoo Transcribed By: MICHELINE 05/01/2351 Dictated By: Ross Sandy MD 05/01/2350 Signed By: 05/01/2351[facility] Physician GroupActivated partial thromboplastin time (aPTT) in platelet poor plasma by coagulation aOrdered By: Barrett Olivares on 44-33-9004kANU Coag (PPP) [Time]35.5 s25.1-36.5FWilson Memorial HospitalComment on above:A hematocrit value greater than 55% may lead to inaccurate results in coagulation testing. Patientshaving hematocrit values >55% require a special collection tube for coagulation studies. Please contact the laboratory at [phone] for redraw instructions.Alanine aminotransferase [Enzymatic activity/volume] in Serum or PlasmaOrdered By: Barrett Olivares on 80-20-9954BIA [Catalytic activity/Vol]12 U/L7-52[facility] Medical CenterAlbumin [Mass/volume] in Serum or Plasma by Bromocresol green (BCG) dye binding methoOrdered By: Barrett Olivares on 30-94-0893Ycqavpq BCG dye [Mass/Vol]4.4 g/dL3.5-5.7FWilson Memorial HospitalAlkaline phosphatase [Enzymatic activity/volume] in Serum or PlasmaOrdered By: Barrett Olivares on 77-26-5596KVG [Catalytic activity/Vol]52 U/U37-602XksngrvplCincinnati Children'S Hospital Medical CenterAspartate aminotransferase [Enzymatic activity/volume] in Serum or Plasma Ordered By: Barrett Olivares on 08-87-3473WZC [Catalytic activity/Vol]23 U/L 13-39[facility] Medical CenterBasophils Auto (Bld) [#/Vol]Ordered By: Barrett Olivares on 04-37-4031Tnwucpniy (Bld) [#/Vol]0.0 10*3/uL0.0-0.2 [facility] Medical CenterBasophils/100 WBC Auto (Bld)Ordered By: Barrett Olivares on 60-73-2844Fdtgsmpbi/100 WBC (Bld)0.5 %.[facility] Medical CenterBilirubin Test strip Ql (U)Ordered By: PROVIDER TEMP on 04-30-2023 Bilirubin Ql (U)NegativeNegativeCincinnati Children'S Hospital Medical CenterBilirubin.total [Mass/volume] in Serum or PlasmaOrdered By: Barrett Olivares on 04-30-2023 Bilirubin [Mass/Vol]0.5 mg/dL0.3-1.0[facility] Medical CenterCalcium [Mass/volume] in Serum or PlasmaOrdered By: Barrett Olivares on 04-30-2023 Calcium [Mass/Vol]9.5 mg/dL8.6-10.3FWilson Memorial HospitalCarbon dioxide, total [Moles/volume] in Serum or PlasmaOrdered By: Barrett Olivares on 82-42-4559RX8 [Moles/Vol]29.0 mmol/L21.0-31.0[facility] Chloride [Moles/volume] in Serum or PlasmaOrdered By: Barrett Olivares on 85-00-4640Nqhehsec [Moles/Vol]102 mmol/B46-977HlmmksyupCincinnati Children'S Hospital Medical Center Color Auto (U)Ordered By: PROVIDER TEMP on 92-48-4918Hixuy (U)YellowYellow [facility] CenterCreatine kinase [Enzymatic activity/volume] in Serum or PlasmaOrdered By: Barrett Olivares on 58-45-8450OL [Catalytic activity/Vol]66 U/F28-018GablnohlgCincinnati Children'S Hospital Medical CenterCreatinine [Mass/volume] in Serum or PlasmaOrdered By: Barrett Olivares on 04-30-2023 Creatinine [Mass/Vol]0.73 mg/dL0.60-1.20[facility] Eosinophils Auto (Bld) [#/Vol]Ordered By: Barrett Olivares on 04-30-2023 Eosinophils (Bld) [#/Vol]0.1 10*3/uL0.0-0.45[facility] Eosinophils/100 WBC Auto (Bld)Ordered By: Barrett Olivares on 04-30-2023 Eosinophils/100 WBC (Bld)1.2 %.[facility] Medical CenterErythrocyte distribution width Auto (RBC) [Ratio]Ordered By: Barrett Olivares on 04-30-2023 Erythrocyte distribution width (RBC) [Ratio]14.6 %11.9-15.3FWilson Memorial HospitalGlobulin Calc (S) [Mass/Vol]Ordered By: Barrett Olivares on 34-65-5363Whusstlh (S) [Mass/Vol]2.9 g/dLCincinnati Children'S Hospital Medical Center Glucose [Mass/volume] in Serum or PlasmaOrdered By: Barrett Olivares on 77-68-1120Kswrxee [Mass/Vol]86 mg/iD44-338GdyjrytifCincinnati Children'S Hospital Medical Center Comment on above:ADA recommended reference rangeRandom Glucose Reference Range is dependent on time and content of last meal. Glucose of more than 200 mg/dL in a nonstressed, ambulatory subject supports the diagnosisof Diabetes Mellitus. Hematocrit Auto (Bld) [Volume fraction]Ordered By: Barrett Olivares on 51-17-4225Zufjuybrhe (Bld) [Volume fraction]39.9 %34.0-46.4FWilson Memorial HospitalHemoglobin [Mass/volume] in BloodOrdered By: Barrett Olivares on 01-82-0642Gkdrbmpofu (Bld) [Mass/Vol]13.3 g/dL11.8-15.4FWilson Memorial HospitalINR in Platelet poor plasma by Coagulation assayOrdered By: Barrett Olivares on 71-30-9305QJU Coag (PPP) [Relative time]1.0 {INR}[facility] Medical CenterComment on above:INR Therapeutic Range A) Pre- and Peroperative OAT started two weeks before surgery. NOT HIP SURGERY: 1.5 - 2.5 HIP SURGERY: 2 - 3B) Primary and secondary prevention of venous THROMBOSIS: 2 - 3C) Active venous thrombosis, pulmonary embolismand prevention of recurrent venous thrombosis: 2 - 3D) Prevention of arterial thromboembolismincluding patients with mechanical heart valves: 3 - 4.5Ketones Auto test strip (U) [Mass/Vol]Ordered By: RACHEL CRUZ on 94-78-9265Flqcogv (U) [Mass/Vol]Negative NegativeCincinnati Children'S Hospital Medical CenterLeukocytes [#/volume] corrected for nucleated erythrocytes in Blood by Automated counOrdered By: Barrett Olivares on 95-65-3956ZLF corrected for nucl RBC Auto (Bld) [#/Vol]6.5 10*3/uL3.8-11.6 [facility] Medical CenterLymphocytes Auto (Bld) [#/Vol]Ordered By: Barrett Olivares on 15-23-8479Xwghunmvtly (Bld) [#/Vol]1.2 10*3/uL1.00-4.8 [facility] Medical CenterLymphocytes/100 WBC Auto (Bld)Ordered By: Barrett Olivares on 05-86-2200Nklzpiusyal/100 WBC (Bld)18.6 %.[facility] Auto (RBC) [Entitic mass]Ordered By: Barrett Olivares on 89-94-2104RFN (RBC) [Entitic mass]29.7 pg24.7-34.3FFulton County Health CenterHC Auto (RBC) [Mass/Vol]Ordered By: Barrett Olivares on 30-25-5252AHOQ (RBC) [Mass/Vol]33.3 g/dL32.0-35.0[facility] Medical CenterMCV Auto (RBC) [Entitic vol]Ordered By: Barrett Olivares on 12-41-1427ZTQ (RBC) [Entitic vol]89.3 mO19-312IngboujudCincinnati Children'S Hospital Medical CenterMagnesium [Mass/volume] in Serum or PlasmaOrdered By: Barrett Olivares on 04-30-2023 Magnesium [Mass/Vol]2.0 mg/dL1.9-2.7FWilson Memorial HospitalMonocyte distribution width [Entitic volume] in Blood by AutomatedOrdered By: Barrett Olivares on 25-78-8373Jycqcuyd distribution width Auto (Bld) [Entitic vol]17.64 % 0.00-20.00[facility] Medical CenterMonocytes Auto (Bld) [#/Vol]Ordered By: Barrett Olivares on 00-85-9599Ecoaqymiw (Bld) [#/Vol]0.5 10*3/uL0.0-0.8 [facility] CenterMonocytes/100 WBC Auto (Bld)Ordered By: Barrett Olivares on 54-52-5808Ckblzhuyr/100 WBC (Bld)7.6 %.[facility] Medical CenterNatriuretic peptide B [Mass/Vol]Ordered By: Barrett Olivares on 69-11-7655Vgypllkmywv peptide B (Bld) [Mass/Vol]140.0 pg/mL5-100[facility] Medical CenterNeutrophils Auto (Bld) [#/Vol]Ordered By: Barrett Olivares on 76-21-4174Xabjzwsyrbz (Bld) [#/Vol]4.7 10*3/uL1.8-7.7FWilson Memorial HospitalNeutrophils/100 WBC Auto (Bld)Ordered By: Barrett Olivares on 09-75-6535Xmahihodfmi/100 WBC (Bld)72.1 %.[facility] Medical CenterNitrite Test strip Ql (U)Ordered By: PROVIDER TEMP on 23-81-5359Andfnbo Ql (U)NegativeNegativeCincinnati Children'S Hospital Medical CenterNo Panel InformationOrdered By: Barrett Olivares on 31-01-5405Lctcddwfr GFR (CKD-EPI)> 60.0 mL/Min [facility] Medical CenterPharmacy Creatinine Clearance (Chem58.71 [facility] CenterNucleated erythrocytes [Presence] in Blood by Automated countOrdered By: Barrett Olivares on 15-72-6049Bikbdfbeb RBC Auto Ql (Bld)0.2 /100{WBC}0-0.5FWilson Memorial HospitalPlatelet mean volume Auto (Bld) [Entitic vol]Ordered By: Barrett Olivares on 12-17-7819Piijcudg mean volume (Bld) [Entitic vol]7.5 fL6.3-10.7FWilson Memorial Hospital Platelets Auto (Bld) [#/Vol]Ordered By: Barrett Olivares on 10-94-9071Txscejvqa (Bld) [#/Vol]216 10*3/dP826-577HredhgjqtCincinnati Children'S Hospital Medical CenterPotassium [Moles/volume] in Serum or PlasmaOrdered By: Barrett Olivares on 04-30-2023 Potassium [Moles/Vol]3.7 mmol/L3.5-5.1FWilson Memorial HospitalProtein Auto test strip (U) [Mass/Vol]Ordered By: PROVIDER TEMP on 37-66-3217Pflejit (U) [Mass/Vol]NegativeNegativeCincinnati Children'S Hospital Medical CenterProtein [Mass/volume] in Serum or PlasmaOrdered By: Barrett Olivares on 04-30-2023 Protein [Mass/Vol]7.3 g/dL6.4-8.9[facility] Medical CenterProthrombin time (PT)Ordered By: Barrett Olivares on 84-15-4469BT Coag (PPP) [Time]11.9 s 9.0-12.9[facility] Medical CenterComment on above:A hematocrit value greater than 55% may lead to inaccurate results in coagulation testing. Patients having hematocrit values >55% require a special collection tube for coagulation studies. Please contact the laboratory at [phone] for redraw instructions. RBC Auto (Bld) [#/Vol]Ordered By: Barrett Olivares on 23-89-7380RNB (Bld) [#/Vol]4.47 10*6/uL3.60-5.00[facility] Memorial Hospitalerum or plasma albumin/globulin mass ratioOrdered By: Barrett Olivares on 04-30-2023 Albumin/Globulin [Mass ratio]1.5 {ratio}[facility] Memorial Hospitalerum or plasma anion gap determinationOrdered By: Barrett Olivares on 04-30-2023 Anion gap [Moles/Vol]9.7 mmol/L6.0-15.0[facility] Memorial Hospitalodium [Moles/volume] in Serum or PlasmaOrdered By: Barrett Olivares on 04-30-2023 Sodium [Moles/Vol]137 mmol/W953-744XlatttckoTriHealth McCullough-Hyde Memorial Hospitalpecific gravity Auto test strip (U) [Rel density]Ordered By: RACHEL CRUZ on 04-30-2023 Specific gravity (U) [Rel density]1.0051.001-1.030[facility] Medical CenterTroponin I.cardiac [Mass/volume] in Serum or Plasma by Detection limit <= 0.01 ng/Ordered By: Barrett Olivares on 54-91-5029Vyuafbvy I.cardiac DL <= 0.01 ng/mL [Mass/Vol]5.3 pg/mL0.0-15.0[facility] Medical CenterUrea nitrogen [Mass/volume] in Serum or PlasmaOrdered By: Barrett Olivares on 63-73-6402Jksa nitrogen [Mass/Vol]14 mg/dL7-25[facility] Medical CenterUrine clarity by refractometry automatedOrdered By: RACHEL CRUZ on 82-99-1727Lkqvctt Refractometry automated (U)ClearClearFWilson Memorial HospitalUrine glucose measurement by automated test strip (mass/volume)Ordered By: PROVIDER TEMP on 86-06-2268Zlreewd Auto test strip (U) [Mass/Vol]Normal mg/dLNoal [facility] CenterUrine hemoglobin detection by automated test stripOrdered By: PROVIDER TEMP on 86-06-8998Knjupijeqy Auto test strip Ql (U) NegativeNegUniversity Hospitals Conneaut Medical CenterUrine leukocyte esterase detection by automated test stripOrdered By: PROVIDER TEMP on 04-30-2023 Leukocyte esterase Auto test strip Ql (U)NegativeNegUniversity Hospitals Conneaut Medical CenterUrobilinogen Auto test strip (U) [Mass/Vol]Ordered By: PROVIDER TEMP on 55-96-8919Ketbfvsdxsam (U) [Mass/Vol]Normal mg/dLFirelands Regional Medical Center South CampusWBC Auto (Bld) [#/Vol]Ordered By: Barrett Olivares on 23-04-7054MSU (Bld) [#/Vol]6.5 10*3/uL3.8-11.6FWilson Memorial Hospital pH Auto test strip (U)Ordered By: PROVIDER TEMP on 53-83-2352iX (U)7.5 [pH] 5.0-9.0[facility] Medical CenterBMPon 17-83-4908Sdpsy gap [Moles/Vol]10 mmol/LNormal6-16[facility] HospitalComment on above:Performed By: #### [id number], 8836580, 37863471, 49238694, 0487820 ####[facility] [address] [place], [place] [address]YAX/Creat Ratio21 No GgkggJcce23-45 [facility] HospitalComment on above:Performed By: #### [id number], 9295582, 93789211, 07661019, 4697845 ####[facility] [place], [place] [address]Ydbpnvi [Mass/Vol]9.2 mg/dLNormal 8.9-11.1FWright-Patterson Medical CenterComment on above:Performed By: #### 10150810, 7382265, 81496156, 09396819, 6830332 ####[facility] [place] [address], [place] [address]Eiotsahp [Moles/Vol]104 mmol/LNormal 101-111[facility] HospitalComment on above:Performed By: #### 82534757, 1076167, 32417339, 15341680, 8617304 ####[facility] La qsxesjlf[address], [place] [address]IU8 [Moles/Vol]28 mmol/JOqcbvj52-59 [facility] HospitalComment on above:Performed By: #### 72711779, 0251001, 94065335, 00718057, 0584067 ####[facility] hectcjlw[address], [place] [address]Rrnbwafzvq [Mass/Vol]0.8 mg/dLNormal 0.5-1.3FWright-Patterson Medical CenterComment on above:Performed By: #### 57929489, 6619288, 56547317, 16715790, 8919340 ####[facility] La ssxq[address]aw[address], [place] [address]Exguraa [Mass/Vol]96 mg/sRUkvufj31-785 [facility] HospitalComment on above:Performed By: #### 87357211, 4264777, 88685913, 86563956, 6467257 ####[facility] [place], [place] [address]Tncivssko [Moles/Vol]3.8 mmol/LNormal 3.5-5.3FWright-Patterson Medical CenterComment on above:Performed By: #### 62395297, 3330624, 78854594, 98482966, 2211711 ####[facility] La mbjdrkro[address], [place] [address]Zlmvmr [Moles/Vol]138 mmol/LNormal 135-145[facility] HospitalComment on above:Performed By: #### 06413778, 1748953, 87787540, 97244150, 7822569 ####[address] [address]Rmad nitrogen [Mass/Vol]17 mg/dLNormal 5-21[facility] HospitalComment on above:Performed By: #### 83170300, 7067020, 05790566, 12379568, 5308777 ####[address] [address]GZH w/ Auto Diffon 77-83-7249Aazlogzu Absolute0.1 E9/LNormal0.0-0.2FWright-Patterson Medical CenterComment on above: Performed By: #### 07992684, 8131226, 35914627, 96944705, 9374408 ####[address] [address]Rskkfkeub/100 WBC (Bld)0.8 %Normal0.0-2.0[facility] HospitalComment on above:Performed By: #### 25590864, 5881784, 20618863, 99367164, 5019317 ####[address] [address]Chx Absolute0.2 E9/L Normal0.0-0.5FWright-Patterson Medical CenterComment on above:Performed By: #### 33122542, 8844766, 31913225, 72643537, 3488342 ####[address] [address]Ugqbipejsbr/100 WBC (Bld)2.4 %Normal 0.0-8.0[facility] HospitalComment on above:Performed By: #### 58285435, 7608790, 87309812, 79477256, 2856978 ####[address] [address]Lywmgdunuxc distribution width (RBC) [Ratio]14.4 %High10.9-14.2FWright-Patterson Medical CenterComment on above:Performed By: #### 06538665, 2977515, 35402249, 34334665, 1532187 ####[facility] Ir[address] [place] [address]Djhvqyskmr (Bld) [Volume fraction]38.0 %Qsrtrm09.0-46.0[facility] HospitalComment on above: Performed By: #### 61156620, 2471809, 50410519, 69000199, 1337028 ####[place] [facility] Ijt[address] [place] [address]Iphisofmkn (Bld) [Mass/Vol]12.5 g/rWPkxgee50.0-16.0[facility] HospitalComment on above: Performed By: #### 69604039, 7760904, 53252519, 44269099, 2337729 ####[address] [address]Qwnpj Absolute 1.3 E9/LNormal1.0-4.0[facility] HospitalComment on above:Performed By: #### 16756489, 7937077, 08529741, 30568364, 8756860 ####[address] [address]Qufizgsznhz/100 WBC (Bld)19.8 %Gvppzm30.0-50.0[facility] HospitalComment on above:Performed By: #### 83517672, 9961310, 96715797, 58123441, 3325936 ####Osuna [address] [address]MKI (RBC) [Entitic mass]29.8 pgNormal 27.0-34.0[facility] HospitalComment on above:Performed By: #### 66628890, 8256187, 30381048, 86460296, 9218241 ####[address] [address]GBHM (RBC) [Mass/Vol]33.2 g/dLNormal 31.4-36.0[facility] HospitalComment on above:Performed By: #### 85771011, 2878896, 19272386, 00694737, 8370768 ####[address] [place], [place] [address]UHK (RBC) [Entitic vol]89.7 fLNormal 80.0-100.0[facility] HospitalComment on above:Performed By: #### 46110691, 7888783, 61652975, 89470793, 0571626 ####[address] [address]Yded Absolute0.7 E9/LNormal0.2-1.0 [facility] HospitalComment on above:Performed By: #### 03163286, 0407853, 49972764, 03626652, 0383789 ####[facility] we[address]feq[address] [place] [address]Kzqdfmvcb/100 WBC (Bld)10.2 %Normal 4.0-14.0[facility] HospitalComment on above:Performed By: #### 18783636, 4419745, 45045407, 50442846, 6997853 ####[address] [address]Hycvry Absolute4.3 E9/LNormal2.0-7.5 [facility] HospitalComment on above:Performed By: #### 47430052, 5217768, 61983971, 85937759, 1669006 ####[facility] [address] [place] [address]Dkzypg Auto66.8 %Agtaqh90.0-75.0[facility] HospitalComment on above:Performed By: #### 99309067, 8776949, 48144885, 61321432, 1383392 ####[facility] [address] [place] [address]Qsfswqvn623.0 E9/YWiiwnr415.0-500.0[facility] HospitalComment on above:Performed By: #### 29214837, 9129262, 50239344, 77989712, 1396702 ####[facility] [address] [place], [place] [address]Zkvheecv mean volume (Bld) [Entitic vol]7.4 fLNormal6.4-10.8 [facility] HospitalComment on above:Performed By: #### 25614590, 2404604, 57962019, 31033133, 4027019 ####[facility] [address] [place], [place] [address]YHY1.2 E12/LLow4.3-5.9[facility] HospitalComment on above:Performed By: #### 34386202, 7682125, 35571807, 27119350, 9572111 ####[address] [place], [place] [address]AMU3.5 E9/LNormal4.0-11.0[facility] HospitalComment on above:Performed By: #### 17106857, 6224525, 36655696, 56659535, 6277674 ####[facility] [address] [place] [address] CHEMISTRYOrdered By: SYSTEM SYSTEM on 84-67-8655Gmlnhska0.90 pg/mLLow10.10 - 27.10 pg/mLRemisol ChemComment on above:Interpretive Data: The 95% CI (Confidence Interval) PPV (Positive Predictive Value) for myocardial infarction in females is 38 pg/mL, in males 51 pg/mL. The results should be used in conjunction withclinical conditions of myocardial infarction. (Access High Sensitivity Troponin I Instructions For Use, Raegan Nolan, October 2017)CHEMISTRYOrdered By: Jennifer Alves on 37-25-7117Gkhlc gap [Moles/Vol]10 mmol/LNormal6 - 16 mEq/LRemisol ChemCalcium [Mass/Vol]9.2 mg/dLNormal8.9 - 11.1 mg/dLRemisol ChemChloride [Moles/Vol]104 mmol/VUdcrar801 - 111 mmol/LRemisol ChemCO2 [Moles/Vol]28 mmol/EBlwxdl04 - 31 mmol/LRemisol ChemCreatinine [Mass/Vol]0.8 mg/dLNormal0.5 - 1.3 mg/dLRemisol PuivkFRA67 mL/min/1.73 j6Eschew >=59mL/min/1.73 z4Kjcqwuj ChemGlucose [Mass/Vol]96 mg/vXYbnsgu66 - 199 mg/dL Remisol ChemPotassium [Moles/Vol]3.8 mmol/LNormal3.5 - 5.3 mmol/LRemisol Chem Sodium [Moles/Vol]138 mmol/KJrtgig394 - 145 mmol/LRemisol ChemTroponin7.00 pg/mL Low10.10 - 27.10 pg/mLRemisol ChemComment on above:Interpretive Data: The 95% CI (Confidence Interval) PPV (Positive Predictive Value) for myocardial infarction in females is 38 pg/mL, in males 51 pg/mL. The results should be used in conjunction withclinical conditions of myocardial infarction. (Access High Sensitivity Troponin I Instructions For Use, Raegan Nolan, October 2017)Urea nitrogen [Mass/Vol]17 mg/dLNormal5 - 21 mg/dLRemisol ChemUrea nitrogen/Creatinine [Mass ratio]21 mg/mnOoso23 - 20Remisol ChemCOAGULATION Ordered By: Daina Mejias on 05-99-3382lZYB Coag (PPP) [Time]38.3 sHigh25.1 - 36.5 second(s)[facility] Auto CoagComment on above:Interpretive Data: Parameter 15 days - 4 weeks 1 - [...] the same coagulation reagent and instrumentation as [facility]. Currently there are no coagulation studies available worldwide for children to 14 days, andno normal ranges. Heparin therapeutic range (represented by Anti-Factor Xa activity of 0.2 - 0.4 U/mL) corresponds to PTT of 56.6 - 109.0 sec.INR Coag (PPP) [Relative time]1.1 {INR}Invalid Interpretation CodePARKSIDE PSYCHIATR[facility] [place] Auto CoagComment on above:Interpretive Data: INR results are specifically intended to assess patients stabilized on long-term Anticoagulation therapy suggested INR s Less Intensive Anticoagulation 2.0 3.0 Conventional Range 3.0 4.5PT Coag (PPP) [Time]12.2 sNormal9.4 - 12.5 second(s) [facility] Auto CoagComment on above:Interpretive Data: 15 days - 4 weeks 1 - [...] the same coagulation reagent and instrumentation as [facility]. Currently there are no coagulation studies available worldwide for children to 14 days, andno normal ranges.CT Head or Brain w/o Contraston 06-76-6360DL Head or Brain w/o ContrastNormLouis Stokes Cleveland VA Medical CenterCTA Headon 63-53-1205KKA HeadNormal [facility] BaltimoreCTA Neckon 15-51-4967AIJ NeckNoBerger HospitalConsent for Treatmenton 91-82-4967Lznynun for Treatment [id number]#1.00TIFFHolzer Medical Center – JacksonDischarge Instructionson 06-86-0469Terungetk Instructions [id number]#1.00TIFFNoFlower Hospital CenterED Clinical Summaryon 52-11-4373BI Clinical SummaryNormKettering Health Behavioral Medical Center CenterED Note-Physicianon 81-63-4779IN Note-PhysicianHolzer Medical Center – JacksonComment on above:Result Comment: Electronically Signed By: Wilfredo Beard DO.br\Date and Time Signed: 04/20/23 11:11ESTED Patient Education Noteon 04-50-9058KN Patient Education NoteNormKettering Health Behavioral Medical Center CenterED Patient Summaryon 12-44-8867IJ Patient SummaryNoBerger Hospital HEMATOLOGYOrdered By: SYSTEM SYSTEM on 22-92-0987Aoiodmdq Absolute0.1 E9/LNormal 0.0 - 0.2 E9/LRemisol HemeBasophils/100 WBC (Bld)0.8 %Normal0.0 - 2.0 %Remisol HemeEos Absolute0.2 E9/LNormal0.0 - 0.5 E9/LRemisol HemeEosinophils/100 WBC (Bld)2.4 %Normal0.0 - 8.0 %Remisol HemeErythrocyte distribution width (RBC) [Ratio]14.4 %High10.9 - 14.2 %Remisol HemeHematocrit (Bld) [Volume fraction]38.0 %Fopszf51.0 - 46.0 %Remisol HemeHemoglobin (Bld) [Mass/Vol]12.5 g/eLBgcvrw77.0 - 16.0 gm/dLRemisol HemeLymph Absolute1.3 E9/LNormal1.0 - 4.0 E9/LRemisol Heme Lymphocytes/100 WBC (Bld)19.8 %Sclggf61.0 - 50.0 %Remisol HemeMCH (RBC) [Entitic mass]29.8 mzTnihut00.0 - 34.0 pgRemisol HemeMCHC (RBC) [Mass/Vol]33.2 g/dL Vojrbm27.4 - 36.0 gm/dLRemisol HemeMCV (RBC) [Entitic vol]89.7 yQVoshmg53.0 - 100.0 fLRemisol HemeMono Absolute0.7 E9/LNormal0.2 - 1.0 E9/LRemisol Heme Monocytes/100 WBC (Bld)10.2 %Normal4.0 - 14.0 %Remisol HemeNeutro Absolute4.3 E9/LNormal2.0 - 7.5 E9/LRemisol HemeNeutro Auto66.8 %Agjjyu11.0 - 75.0 %Remisol RaclMjgzaojf325.0 E9/WRudenk484.0 - 500.0 E9/LRemisol HemePlatelet mean volume (Bld) [Entitic vol]7.4 fLNormal6.4 - 10.8 fLRemisol HemeRBC4.2 E12/LLow4.3 - 5.9 E12/LRemisol HemeWBC6.5 E9/LNormal4.0 - 11.0 E9/LRemisol HemeMonitor Recordon 03-12-3454Wgeutba [id number]#1.00TIFFNormal [facility] HospitalMonitor Record [id number]#1.00TIFFNormalAvita Health System Bucyrus HospitalPT & PTTon 37-27-4734wGKG Coag (PPP) [Time]38.3 second(s)High25.1-36.5 [facility] HospitalComment on above:Result Comment: Parameter 15 days - 4 weeks 1 - 5 months 6 - 11 months 1 - 5 years 6 - 10 years 11 - 17 years PTT Mean: 35.4 (27.6-45.6) Mean: 33.5 (24.8-40.7) Mean: 32.4 (25.1-40.7) Mean: 31.6 (24.0-39.2) Mean: 31.6 (26.9-38.7) Mean: 31.0 (24.6-38.4) Pediatric Reference ranges were obtained from astudy by Dharmesh Marin et al. prepared from 1437 samples obtained at 7 different centers using theTeralynk coagulation reagent and instrumentation as [facility]. Currently there are no coagulation studies available worldwide for children to 14 days, and no normal ranges. Heparin therapeutic range (represented by Anti-Factor Xa activity of 0.2 - 0.4 U/mL) corresponds to PTT of 56.6 - 109.0 sec.Performed By: #### [id number], 1631178, 49917496, 98615058, 3563849 ####[facility] [address] [place], [place] [address]FWE Coag (PPP) [Relative time]1.1 {INR}Invalid Interpretation CodeAvita Health System Bucyrus HospitalComment on above:Result Comment: INR results are specifically intended to assess patients stabilized on long-term Anticoagulation therapy suggested INR?s ?Less Intensive Anticoagulation? 2.0 ? 3.0Conventional Range 3.0 ? 4.5Performed By: #### [id number], 9573256, 51172802, 89610391, 1548294 ####[facility] [address] [place], [place] [address]HK Coag (PPP) [Time]12.2 second(s)Normal9.4-12.5Fisher [facility] BaltimoreComment on above:Result Comment: 15 days - 4 weeks 1 - 5 months 6 -11 months 1 ? 5 years 6 ? 10 years 11 -17 years Mean: 11.2 (9.5 ? 12.6) Mean: 11.0 (9.7 ? 12.8) Mean: 11.0 (9.8 ? 13.0) Mean: 11.3 (9.9 ? 13.4) Mean:11.7 (10.0 ? 14.6) Mean: 11.8 (10.0 - 14.1) Pediatric Reference ranges were obtained from a study by Dharmesh Marin et al. prepared from 1437 samples obtained at 7 different centers using the same coagulation reagent and instrumentation as [facility]. Currently there are no coagulation studies available worldwide for children to 14 days, and no normal ranges.Performed By: #### 18086247, 9867702, 58939519, 39558013, 7265799 ####Enrrique [facility] [place], [place] [address]Sgrlblkn 0 Hr.on 62-37-4707Vwkalnpx0.00 pg/mLLow10.10-27.10[facility] HospitalComment on above:Result Comment: The 95% CI (Confidence Interval) PPV (Positive Predictive Value) for myocardial infarction in females is 38 pg/mL, in males 51 pg/mL. The results should be used in conjunction with clinical conditions of myocardial infarction.(Access High Sensitivity Troponin I Instructions For Use,Bioparaiso, October 2017) Performed By: #### [id number], 3588191, 51889674, 26289899, 8302174 ####[address] [address]Pbyknxmo 3 Hr.on 99-56-5507Wwpgenat7.90 pg/mLLow10.10-27.10[facility] HospitalComment on above:Result Comment: The 95% CI (Confidence Interval) PPV (Positive Predictive Value) for myocardial infarction in females is 38 pg/mL, in males 51 pg/mL. The results should be used in conjunction with clinical conditions of myocardial infarction.(instruMagic High Sensitivity Troponin I Instructions For Use,Bioparaiso, October 2017)Performed By: #### [id number] ####[address] [address]NG With Cult Reflexon 04-20-2023 Bilirubin Ql (U)NegativeNormalNegativeAvita Health System Bucyrus HospitalComment on above:Performed By: #### [id number] ####[address] [address]Dvlbnjz (U)CLEARNormalClearAvita Health System Bucyrus HospitalComment on above:Performed By: #### 75630760 ####[address] [address]Gkugj (U)YELLOWNormalYellow [facility] HospitalComment on above:Performed By: #### 25909994 ####[address] [address] Epithelial cells.squamous LM.HPF (Urine sed) [#/Area]6-5Yujxgv1-8Epxzol [facility] BaltimoreComment on above:Performed By: #### 07706861 ####[address] [address]Gdthebh Test strip (U) [Mass/Vol]NegativeNormalNegativeAvita Health System Bucyrus HospitalComment on above: Performed By: #### [id number] ####[place] [address] [place], [place] [address]Buqmejtznj Ql (U)NegativeNormalNegativeAvita Health System Bucyrus HospitalComment on above:Performed By: #### 72892263 ####[place] [address] [address]Cvyupgx (U) [Mass/Vol] NegativeNormalNegativeAvita Health System Bucyrus HospitalComment on above:Performed By: #### 24802784 ####[address] [address]Yzhiowv.plasma/[place].RBC (Bld) [Mass ratio]8-2Mjecxe5-7Bovzvm [facility] BaltimoreComment on above:Performed By: #### 42793289 ####[address] [address]Xdmkclo Ql (U)Negative NormalNegCleveland Clinic Union HospitalComment on above:Performed By: #### [id number] ####[address] [address]wQ (U)7.5 [pH]Invalid Interpretation Code5.0-9.0[facility] Comment on above:Performed By: #### [id number] ####[address] [address]Sptvvke (U) [Mass/Vol]NegativeNormal NegativeAvita Health System Bucyrus HospitalComment on above:Performed By: #### [id number] ####[address] [address] Specific gravity (U) [Rel density]1.010Invalid Interpretation Code1.005-1.030 [facility] HospitalComment on above:Performed By: #### [id number] ####[place] [address] [address]Nsgf of Urine collection methodClean CatchNormLouis Stokes Cleveland VA Medical CenterComment on above:Performed By: #### [id number] ####Enrrique [facility] [address] [place], [place] [address]Eurtxucqbouo Qn (U)0.2 {Lexie'U}/dLNormal0.0-1.0 [facility] HospitalComment on above:Performed By: #### [id number] ####Enrrique [facility] [address] [place], [place] [address]XVL Auto Ql (U)NegativeNormalNegativeFisher [facility] Hospital Of BaltimoreComment on above: Performed By: #### [id number] ####Enrrique [facility] [address] [place], [place] [address]WXH LM.HPF (Urine sed) [#/Area]2-0Nfyxwi2-6Aihcih [facility] BaltimoreComment on above:Performed By: #### [id number] ####[facility] [address] [place], [place] [address]HYIHHFYXXU Ordered By: Daina Mejias on 83-78-9107Yjjmhreeh Ql (U)Negative (04/20/23 7:57 AM)NormalNegativePARKSIDE [facility] UA Auto SSClarity (U)Clear (04/20/23 7:57 AM)NormalClearFMUSCOGEE UA Auto SSColor (U)Yellow (04/20/23 7:57 AM)NormalYellowFT UA Auto SSEpithelial cells.squamous LM.HPF (Urine sed) [#/Area]0-2 /HPFNormal0-2/HPFFTMC UA Auto SSGlucose Test strip (U) [Mass/Vol]Negative (04/20/23 7:57 AM)NormalNegativeFT UA Auto SSHemoglobin Ql (U)Negative (04/20/23 7:57 AM)NormalNegativePARKSIDE [facility] UA Auto SSKetones (U) [Mass/Vol]Negative (04/20/23 7:57 AM)NormalNegativePARKSIDE PSYCH[facility] UA Auto SSLithium.plasma/[place].RBC (Bld) [Mass ratio]0-3 /HPFNormal0-3/HPFFTMC UA Auto SSNitrite Ql (U)Negative (04/20/23 7:57 AM)NormalNegativePARKSIDE [facility] UA Auto SSpH (U)7.5 *NA* (04/20/23 7:57 AM)Invalid Interpretation Code5.0 - 9.0[facility] UA Auto SSProtein (U) [Mass/Vol]Negative (04/20/23 7:57 AM)NormalNegativePARKSIDE PSYCH[facility]ATR[facility] UA Auto SSSpecific gravity (U) [Rel density] 1.010 *NA* (04/20/23 7:57 AM)Invalid Interpretation Code1.005 - 1.030[facility] UA Auto SSUA Spec DescClean Catch (04/20/23 7:57 AM)NormalPARKSIDE PSYCHIATRIC [facility] UA Auto SSUrobilinogen Qn (U)0.6189715 {Lexie'U}/dL Normal0.0 - 1.0 EU/dLPARKSIDE PSYCHIATRIC [facility] UA Auto SSWBC Auto Ql (U)Negative (04/20/23 7:57 AM)NormalNegativePARKSIDE [facility] UA Auto SSWBC LM.HPF (Urine sed) [#/Area]0-5 /HPFNormal0-5/HPFPARKSIDE PSYCHI[facility] UA Auto SSXR Chest Single Viewon 72-09-8899UB Chest Single ViewNormalAvita Health System Bucyrus HospitaleGFRon 03-44-4679rUPC28 mL/min/1.73 m2 Normal>=59[facility] HospitalComment on above:Order Comment: Order added by Discern Expert.Performed By: #### [id number], 0529792, 65682707, 16748818, 7893109 ####Enrrique [address] [address]DEMsd 27-00-5924GNG No additional P-5'-P [Catalytic activity/Vol]16 Int._Unit/LNormal6-46[facility] HospitalComment on above:Performed By: #### 0176430, 4197464, 7810051 ####Enrrique [address] [address]HKUoq 25-86-8705UUP [Catalytic activity/Vol]27 Int._Unit/LNormal5-43[facility] HospitalComment on above:Performed By: #### 1143484, 9805690, 8372392 ####Enrrique [facility] [address] [place], [place] [address]NLKFZMYUDMfrzqqu By: SYSTEM SYSTEM on 63-28-3021HZY No additional P-5'-P [Catalytic activity/Vol]16 [iU]/dNormal6 - 46 Int._Unit/L [facility] RemisolAST [Catalytic activity/Vol]27 [iU]/dNormal5 - 43 Int._Unit/LFTMC RemisolCholesterol [Mass/Vol]149 mg/eFHvzrxh196 - 200 mg/dLFT Remisol Cholesterol in HDL [Mass/Vol]43 mg/dLInvalid Interpretation CodeFT Remisol Cholesterol in LDL [Mass/Vol]81 mg/dLNormal<=129mg/dLFTMC RemisolCholesterol in VLDL [Mass/Vol]19 mg/dLNormal7 - 40 mg/dLFT RemisolTriglyceride [Mass/Vol]93 mg/dLNormal<=149mg/dLPARKSIDE PSY[facility] RemisolConsent for Treatmenton 82-74-3377Fpqowcx for [id number]#1.00CD:127NormLouis Stokes Cleveland VA Medical CenterLaboratory - Chemistry and Chemistry - challengeon 11-16-2022 Cholesterol [Mass/Vol]81 mg/dLNormal<=129MP-[facility] 250 DO Work Phone: Cholesterol in LDL [Mass/Vol]19 mg/dLNormal7-40MP- [facility] 250 DO Work Phone: Lipid Panelon 62-92-2929Dkbycynrlyv [Mass/Vol]149 mg/wRKdwlbl852-594AupqrnAvita Health System Bucyrus HospitalComment on above:Performed By: #### 3146932, 2029474, 3277046 ####Enrrique [facility] [address] [place], [place] [address]Cxgfsaqfyez in HDL [Mass/Vol]43 mg/dLInvalid Interpretation CodeAvita Health System Bucyrus HospitalComment on above:Result Comment: HDL > or equal to 60 mg/dL: Low cardiovascular riskHDL < 40 mg/dL : High cardi ovascular riskPerformed By: #### 6459513, 4026894, 3502211 ####[facility]una [facility] [address] [facility] CenterctAveNor[place], [place] [address]Litnkjjfxdt in LDL [Mass/Vol]81 mg/dLNormal<=129[facility] HospitalComment on above: Performed By: #### 6076623, 2634510, 9933128 ####Enrrique [facility] [address] [facility] [place]No[place], [place] [address]Kouzocoivok in VLDL [Mass/Vol]19 mg/dL Normal7-40[facility] HospitalComment on above:Performed By: #### 9703692, 2395727, 1671576 ####[facility]una [facility] [address] AveNorMiddle[place], [place] [address]Xdlvcahtrluv [Mass/Vol]93 mg/dLNormal<=149[facility] HospitalComment on above:Performed By: #### 6022387, 1512226, 9641115 ####[facility]una [facility] [address] [place], [place] [address]Hp Panel Informationon {Int._Unit/L}Knupiq7-29WU-Ecgtr [facility] [place] 250 DO Work Phone: [phone] {Int._Unit/L}Wbqkod0-86HM-Keipf [facility] 250 DO Work Phone: [phone] mg/dLNormal<=149MP-[facility] 250 DO Work Phone: [phone] mg/sVCcwhza525-408YG-Fgkii [facility] [address] DO Work Phone: [phone] mg/dLMPFranciscan Health [facility] [address] DO Work Phone: Comment on above:HDL > or equal to 60 mg/dL: Low cardiovascular riskHDL < 40 mg/dL : High cardiovascular riskPhysician Orderon [id number] [id number]#1.00CD:127 NormalAvita Health System Bucyrus HospitalCoding Queryon [id number] QueryNormal [facility] HospitalCoding Queryon [id number] QueryNormalAvita Health System Bucyrus HospitalAuto Diffon 35-55-1831Dbeljahva/100 WBC (Bld)1.0 %Normal 0.0-2.0Av[facility] Bu[facility] HospitalComment on above:Order Comment: Order Added by Discern Expert.Performed By: #### [id number] ####[address] [address] Basophils/Leukocytes Auto (Bld) [Pure # fraction]0.0 E9/LNormal0.0-0.2FWright-Patterson Medical CenterComment on above:Order Comment: Order Added by Discern Expert.Performed By: #### [id number] ####[address] [address]Fjyfypwqxfs/100 WBC (Bld)3.7 %Normal0.0-8.0[facility] HospitalComment on above:Order Comment: Order Added by Discern Expert.Performed By: #### 8057654, 67483732, 6860820, 9145119 ####[address] [address]Nditfzovltd/Leukocytes Auto (Bld) [Pure # fraction]0.2 E9/L Normal0.0-0.5FWright-Patterson Medical CenterComment on above:Order Comment: Order Added by Discern Expert.Performed By: #### 4834581, 66863541, 4314698, 4867461 ####[address] [address] Lymphocytes/100 WBC (Bld)24.4 %Xabqro02.0-50.0[facility] HospitalComment on above:Order Comment: Order Added by Discern Expert.Performed By: #### 3480091, 44450773, 6816131, 8729893 ####[address] [place], [place] [address]Yhbejzxbdho/Leukocytes Auto (Bld) [Pure # fraction]1.2 E9/LNormal1.0-4.0[facility] HospitalComment on above:Order Comment: Order Added by Discern Expert.Performed By: #### 4644812, 54226132, 4729986, 3315492 ####[address] [address]Rtkqcbxhe/100 WBC (Bld)11.9 %Normal4.0-14.0[facility] HospitalComment on above:Order Comment: Order Added by Discern Expert.Performed By: #### 9006771, 54809302, 1885981, 8189660 ####[address] [address]Mihnrxlvy/Leukocytes Auto (Bld) [Pure # fraction]0.6 E9/LNormal0.2-1.0[facility] Comment on above:Order Comment: Order Added by Discern Expert.Performed By: #### 3580000, 37977252, 9095459, 5781213 ####[address] [address]Ekvuvuxpwty/100 WBC (Bld)59.0 %Normal 36.0-75.0[facility] HospitalComment on above:Order Comment: Order Added by Discern Expert.Performed By: #### 3825150, 43529073, 4975971, 5100070 ####[address] [address] Neutrophils/Leukocytes Auto (Bld) [Pure # fraction]2.8 E9/LNormal2.0-7.5FWright-Patterson Medical CenterComment on above:Order Comment: Order Added by Discern Expert.Performed By: #### 4858399, 69294106, 3255028, 9676275 ####[address] [address]RWSri 08-04-2022 Potassium [Moles/Vol]3.0 mmol/LLow3.5-5.3FWright-Patterson Medical CenterComment on above:Performed By: #### 1235814, 15091780, 0716999, 4738104 ####[facility] [address] [place], [place] [address]Yfppp gap [Moles/Vol] 11 mmol/LNormal6-16[facility] HospitalComment on above:Performed By: #### 7984180, 67911039, 7364551, 8058908 ####[facility] [address] [place], [place] [address]Lufspse [Mass/Vol]8.9 mg/dLNormal 8.9-11.1FWright-Patterson Medical CenterComment on above:Performed By: #### 9096303, 85495862, 4877489, 5586668 ####[facility] [address] [place] [address]Neqlwzcn [Moles/Vol]91 mmol/KXkc965-937FganyyAvita Health System Bucyrus HospitalComment on above:Performed By: #### 4778333, 91390970, 8901661, 6541578 ####[facility] T[address] [place], [place] [address]IW4 [Moles/Vol]31 mmol/CRsvypw24-67FincjqAvita Health System Bucyrus HospitalComment on above:Performed By: #### 1761048, 89293440, 6567330, 1241877 ####[facility] [address]th[address] [place], [place] [address]Rtmdeapnmm [Mass/Vol] 0.8 mg/dLNormal0.5-1.3FWright-Patterson Medical CenterComment on above:Performed By: #### 3937762, 26950342, 3579286, 5827797 ####[facility] [address]mu[address] [place], [place] [address]Jacqlyq [Mass/Vol]91 mg/dLNormal 55-199[facility] HospitalComment on above:Result Comment: If this glucose result represents a fasting glucose, interpretation should refer tothe following reference range: 55-99 mg/dLPerformed By: #### 0385076, 41509313, 4477568, 7308502 ####[address] [address]Zbiktu [Moles/Vol]130 mmol/XClv383-989KtypdrAvita Health System Bucyrus HospitalComment on above:Performed By: #### 5859309, 31804410, 6817102, 2830355 ####[address] [address]Zpso nitrogen [Mass/Vol]15 mg/dLNormal5-21[facility] HospitalComment on above:Performed By: #### 4865537, 23459916, 0178008, 0805081 ####[address] [address]Lqku nitrogen/Creatinine [Mass ratio]19 No SfyvvCxjaqz30-01YimccqAvita Health System Bucyrus HospitalComment on above:Performed By: #### 1922198, 18255768, 3107157, 1251501 ####[address] [address]IJK w/ Auto Diffon 90-74-2672Xrifpbqjdes distribution width (RBC) [Ratio]13.9 % Eoiccu99.9-14.2FWright-Patterson Medical CenterComment on above:Performed By: #### 2185709, 39796895, 7011033, 1502848 ####[address] [address]Vupxrnjhmp (Bld) [Volume fraction] 34.1 %Imejrr28.0-46.0[facility] HospitalComment on above:Performed By: #### 4782018, 77880336, 7864170, 9425178 ####[address] [address]Xpcqfgerxq (Bld) [Mass/Vol]11.6 g/dL Low12.0-16.0[facility] HospitalComment on above:Performed By: #### 3991181, 25586810, 8808499, 5274075 ####[facility] [address] [place] [address]HSB (RBC) [Entitic mass]29.2 pgNormal 27.0-34.0[facility] HospitalComment on above:Performed By: #### 5241648, 85139993, 8352317, 6275530 ####[address] [address]UAQS (RBC) [Mass/Vol]34.1 g/hWSojknr72.4-36.0[facility] HospitalComment on above:Performed By: #### 0267881, 18846776, 2539933, 0858260 ####[address] [address]JSS (RBC) [Entitic vol]85.7 wEVqukya11.0-100.0[facility] HospitalComment on above:Performed By: #### 7880971, 85828775, 5288259, 8802681 ####[address] [address]Wgmpjqhl mean volume (Bld) [Entitic vol]7.0 fLNormal6.4-10.8[facility] HospitalComment on above:Performed By: #### 7356807, 03542337, 9580875, 1390832 ####[address] [address]Sgjbcrpwc (Bld) [#/Vol]196.0 E9/AEmfuir509.0-500.0[facility] HospitalComment on above:Performed By: #### 4421467, 15599237, 8884976, 0941146 ####[address] [address]OXN (Bld) [#/Vol]4.0 E12/LLow4.3-5.9[facility] HospitalComment on above: Performed By: #### 7503885, 99910306, 3531509, 1657669 ####[facility] [place], [place] [address]TTT corrected for nucl RBC Auto (Bld) [#/Vol]4.8 E9/LNormal4.0-11.0[facility] HospitalComment on above:Performed By: #### 4049168, 02058854, 8185797, 2129698 ####[facility] [address]uz[address] [place], [place] [address]ZKRHVSCJUNgxlvkg By: SYSTEM SYSTEM on 76-24-3120Oodxc gap [Moles/Vol]11 mmol/LNormal6 - 16 mEq/LFTMC RemisolCalcium [Mass/Vol]8.9 mg/dLNormal8.9 - 11.1 mg/dLFTMC RemisolChloride [Moles/Vol]91 mmol/VRqp278 - 111 mmol/LFTMC RemisolCO2 [Moles/Vol]31 mmol/L Frdzms32 - 31 mmol/LFTMC RemisolCreatinine [Mass/Vol]0.8 mg/dLNormal0.5 - 1.3 mg/dLFTMC RemisolGFR/1.73 sq M.predicted among non-blacks MDRD (S/P/Bld) [Vol rate/Area]73 mL/min/1.73 v1Lhwtrj>=59mL/min/1.73 m2[facility] Chem SGlucose [Mass/Vol] 91 mg/vRFeqsfb07 - 199 mg/dLFTMC RemisolSodium [Moles/Vol]130 mmol/CDgh200 - 145 mmol/LFTMC RemisolUrea nitrogen [Mass/Vol]15 mg/dLNormal5 - 21 mg/dLFTMC RemisolUrea nitrogen/Creatinine [Mass ratio]19 mg/xvErlysd74 - 20[facility] Remisol CHEMISTRYOrdered By: Hebert Begum on 14-81-7184Yxhtgkgba [Moles/Vol]3.0 mmol/LLow3.5 - 5.3 mmol/LFTMC RemisolDischarge Instructionson 08-04-2022 Discharge [id number]#1.00CD:127Normal [facility] HospitalHEMATOLOGYOrdered By: SYSTEM SYSTEM on 08-04-2022 Basophils/100 WBC (Bld)1.0 %Normal0.0 - 2.0 %[facility] HemeAutoSSBasophils/Leukocytes Auto (Bld) [Pure # fraction]0.0 E9/LNormal0.0 - 0.2 E9/LFTMC HemeAutoSS Eosinophils/100 WBC (Bld)3.7 %Normal0.0 - 8.0 %[facility] HemeAutoSS Eosinophils/Leukocytes Auto (Bld) [Pure # fraction]0.2 E9/LNormal0.0 - 0.5 E9/L [facility] HemeAutoSSLymphocytes/100 WBC (Bld)24.4 %Oiqumx28.0 - 50.0 %[facility] HemeAutoSS Lymphocytes/Leukocytes Auto (Bld) [Pure # fraction]1.2 E9/LNormal1.0 - 4.0 E9/L [facility] HemeAutoSSMonocytes/100 WBC (Bld)11.9 %Normal4.0 - 14.0 %[facility] HemeAutoSS Monocytes/Leukocytes Auto (Bld) [Pure # fraction]0.6 E9/LNormal0.2 - 1.0 E9/L [facility] HemeAutoSSNeutrophils/100 WBC (Bld)59.0 %Wuxneh50.0 - 75.0 %[facility] HemeAutoSS Neutrophils/Leukocytes Auto (Bld) [Pure # fraction]2.8 E9/LNormal2.0 - 7.5 E9/L [facility] HemeAutoSSHEMATOLOGYOrdered By: Aubree Pruitt on 73-70-1572Blgnxweakkp distribution width (RBC) [Ratio]13.9 %Nyziro34.9 - 14.2 %[facility] HemeAutoSS Hematocrit (Bld) [Volume fraction]34.1 %Xcqfcj03.0 - 46.0 %[facility] HemeAutoSS Hemoglobin (Bld) [Mass/Vol]11.6 g/dLLow12.0 - 16.0 gm/dLFTMC HemeAutoSSMCH (RBC) [Entitic mass]29.2 drRryglj02.0 - 34.0 pgFTMC HemeAutoSSMCHC (RBC) [Mass/Vol] 34.1 g/jVEobegr76.4 - 36.0 gm/dLFTMC HemeAutoSSMCV (RBC) [Entitic vol]85.7 fL Tpebxk62.0 - 100.0 fLPARKSIDE [facility] [place] HemeAutoSSPlatelet mean volume (Bld) [Entitic vol]7.0 fLNormal6.4 - 10.8 fLPARKSIDE PSYCHIATRIC [facility] [place] HemeAutoSSPlatelets (Bld) [#/Vol]196.0 E9/HVqoqqy375.0 - 500.0 E9/[facility] HemeAutoSSRBC (Bld) [#/Vol]4.0 E12/LLow4.3 - 5.9 E12/[facility] HemeAutoSSWBC corrected for nucl RBC Auto (Bld) [#/Vol]4.8 E9/LNormal4.0 - 11.0 E9/[facility] HemeAutoSSInpatient Clinical Summaryon 36-94-8265Bbtmxkjis Clinical SummaryNoBerger HospitalInpatient Patient Summaryon 08-04-2022 Inpatient Patient SummaryNoBerger HospitalInpatient Patient SummaryNoBerger HospitalInterdisciplinary Note - Case Manageron 28-54-7349Wgqfzawfpgvljnmxg Note - Case ManagerNoBerger Hospital Comment on above:Result Comment: Electronically Signed By: Jg GONZALEZ, Stacey\.chepe\Date and Time Signed: 08/04/22 12:35 EDTInterdisciplinary Note - PT on 78-11-4852Nrqoxnjhkynordjkr Note - PTPT Re-Screened pt this date per physician's request. Pt was able to perform functional tasks at [facility] and would be functionally safe to return home using FWW as prior. Ni further PT services neededHolzer Medical Center – JacksonMonitor Recordon 56-03-0724Tymuwpe Record [id number]#1.00CD:127[facility] – JacksonMonitor [id number]#1.00CD:127[facility] WestMonitor Record [id number]#1.00CD:[address] [place], [place] [address]Progress Note-Nurseon 13-21-3338Qrogygzj Note-NurseNormalAvita Health System Bucyrus HospitalProgress Note-Physicianon 48-01-7269Gjaspjvh Note-PhysicianNormal [facility] HospitalComment on above:Result Comment: Electronically Signed By: Rodrigo VICTOR, Joseph Meza\Date and Time Signed: 08/04/22 09:43 EDT eGFRon 92-40-5684KER/1.73 sq M.predicted among non-blacks MDRD (S/P/Bld) [Vol rate/Area]73 mL/min/1.73 y8Ugiycu>=59[facility] HospitalComment on above:Order Comment: Order added by Discern Expert.Result Comment: Chronic kidney disease could be indicated at eGFR's of less than 60 mL/min/1.73m2. K idney failure is indicated at less than 15 mL/min/1.73m2.Performed By: #### 3776677, 71846712, 7433767, 6325600 ####[address] [address]Dmrbxaaphx 37-25-2167Rnjdihbu [Catalytic activity/Vol]3.7 unit/LInvalid Interpretation Code3.3-10.3FWright-Patterson Medical CenterComment on above:Result Comment: Performed at: [address] [id number] [place], [place] [id number] PhD Jessie Mayorga Performed By: #### 0884000, 3651414 ####[facility] [address] [place], [place] [address]XLYmc 70-03-3024Xtuif gap [Moles/Vol] 11 mmol/LNormal6-16[facility] HospitalComment on above:Performed By: #### 50826431, 1002154 ####[address] [address]Ulorqcs [Mass/Vol]9.2 mg/dLNormal8.9-11.1FW[facility]-Patterson Medical CenterComment on above:Performed By: #### 51662965, 9584110 ####[facility] [address] [place], [place] [address]Bhuvwoeq [Moles/Vol]96 mmol/QBfh298-126BcssgrAvita Health System Bucyrus HospitalComment on above: Performed By: #### 59634848, 5133924 ####[address] [place], [place] [address]MC9 [Moles/Vol]30 mmol/RYizace64-19 [facility] HospitalComment on above:Performed By: #### 65537679, 6003659 ####[address] [address] Creatinine [Mass/Vol]0.8 mg/dLNormal0.5-1.3FW[facility]-Patterson Medical CenterComment on above:Performed By: #### 17344867, 9161799 ####[address] [address]Jyglkjq [Mass/Vol]88 mg/dLNormal 55-199[facility] HospitalComment on above:Result Comment: If this glucose result represents a fasting glucose, interpretation should refer tothe following reference range: 55-99 mg/dLPerformed By: #### 42611493, 3326556 ####[address] [address] Potassium [Moles/Vol]3.7 mmol/LNormal3.5-5.3FW[facility]-Patterson Medical CenterComment on above:Performed By: #### 08027444, 5594537 ####[address] [address]Pedqvt [Moles/Vol]133 mmol/LLow 135-145[facility] HospitalComment on above:Performed By: #### 70764956, 8489773 ####[address] [address]Yvkf nitrogen [Mass/Vol]16 mg/dLNormal5-21[facility] Comment on above:Performed By: #### 18360861, 7803971 ####[address] [address]Utfu nitrogen/Creatinine [Mass ratio]20 No YxozzSgpcnb19-25IzyakmAvita Health System Bucyrus HospitalComment on above: Performed By: #### 30204887, 8002271 ####[facility] [address] Nick [place], [place] [address]JZOTJVMTSRcyuzwl By: SYSTEM SYSTEM on 91-14-0330Svntf gap [Moles/Vol]11 mmol/LNormal6 - 16 mEq/LFTMC RemisolCalcium [Mass/Vol]9.2 mg/dLNormal8.9 - 11.1 mg/dLFTMC RemisolChloride [Moles/Vol]96 mmol/YPkp174 - 111 mmol/LFTMC RemisolCO2 [Moles/Vol]30 mmol/QLjnimi39 - 31 mmol/LFTMC RemisolCreatinine [Mass/Vol]0.8 mg/dLNormal0.5 - 1.3 mg/dLFTMC RemisolGFR/1.73 sq M.predicted among non-blacks MDRD (S/P/Bld) [Vol rate/Area]73 mL/min/1.73 u9Axwfms>=59mL/min/1.73 m2FT Chem SGlucose [Mass/Vol]88 mg/dL Sstvii39 - 199 mg/dLFT RemisolPotassium [Moles/Vol]3.7 mmol/LNormal3.5 - 5.3 mmol/LFTMC RemisolSodium [Moles/Vol]133 mmol/CXde515 - 145 mmol/LFTMC Remisol Urea nitrogen [Mass/Vol]16 mg/dLNormal5 - 21 mg/dLPARKSIDE [facility] RemisolUrea nitrogen/Creatinine [Mass ratio]20 mg/hcDcxqjb06 - 20[facility] RemisolConsultation Noteon 05-68-5987Pemzvxafnzuu NoteHolzer Medical Center – JacksonComment on above:Result Comment: Electronically Signed By: Joseph Wallace MD\Date and Time Signed: 08/03/22 10:11 EDTConsultation NoteHolzer Medical Center – JacksonComment on above:Result Comment: Electronically Signed By: McGuinn MD, Joseph P\.br\Date and Time Signed: 08/03/22 09:00 EDTInterdisciplinary Note - Case Manageron 66-84-9127Uorjdxwahkbthswvk Note - Case ManagerHolzer Medical Center – JacksonComment on above:Result Comment: Electronically Signed By: Delfin López\.br\Date and Time Signed: 08/03/22 15:18 EDTMonitor Recordon 08-03-2022 Monitor [id number]#1.00CD:127[facility] – JacksonMonitor Record [id number]#1.00CD:127[facility] – JacksonProgress Note-Physicianon 18-64-6302Udcmrffh Note-PhysicianHolzer Medical Center – JacksonComment on above:Result Comment: Electronically Signed By: Alicia PORTILLO\.br\Date and Time Signed: 08/03/22 14:10 EDT\.br\Electronically Co-Signed By: Antonio HARMON MD\.br\Date and Time Co- Signed: 08/03/22 14:15 EDTeGFRon 41-38-0320OWY/1.73 sq M.predicted among non- blacks MDRD (S/P/Bld) [Vol rate/Area]73 mL/min/1.73 m3Jzwgeq>=59[facility] HospitalComment on above:Order Comment: Order added by Discern Expert. Result Comment: Chronic kidney disease could be indicated at eGFR's of less than 60 mL/min/1.73m2. Kidney failure is indicated at less than 15 mL/min/1.73m2. Performed By: #### 10936309, 8664907 ####[facility] [address] [place], [place] [address]Yfbk Diffon 65-15-7076Hanjhndoz/100 WBC (Bld)0.6 %Normal0.0-2.0[facility] HospitalComment on above:Order Comment: Order Added by Discern Expert.Performed By: #### 4517417, 2541049, 6374369, 45926774, 2742153 ####[address] [place], [place] [address]Nlsmrcbms/Leukocytes Auto (Bld) [Pure # fraction] 0.0 E9/LNormal0.0-0.2FWright-Patterson Medical CenterComment on above:Order Comment: Order Added by Discern Expert.Performed By: #### 7077183, 5717240, 2600950, 12461383, 7515905 ####[address] [address]Rbblncivjxz/100 WBC (Bld)2.8 %Normal0.0-8.0[facility] HospitalComment on above:Order Comment: Order Added by Discern Expert. Performed By: #### 5013355, 6398160, 8723251, 75964415, 1332725 ####[address] [address]Vyxltntrvuy/Leukocytes Auto (Bld) [Pure # fraction]0.1 E9/LNormal0.0-0.5[facility] Comment on above:Order Comment: Order Added by Discern Expert.Performed By: #### 3133986, 0058077, 6987750, 27360439, 5437077 ####[address] [address]Mfvkxvsirhz/100 WBC (Bld)22.4 %Normal 14.0-50.0[facility] HospitalComment on above:Order Comment: Order Added by Discern Expert.Performed By: #### 3164076, 3552161, 3784671, 01247618, 1159324 ####[address] [address]Pbtmbripjjf/Leukocytes Auto (Bld) [Pure # fraction]1.1 E9/LNormal1.0-4.0 [facility] HospitalComment on above:Order Comment: Order Added by Discern Expert.Performed By: #### 6647156, 8751933, 0611768, 93154926, 8820183 ####[address] [place] [address] Monocytes/100 WBC (Bld)11.9 %Normal4.0-14.0[facility] HospitalComment on above:Order Comment: Order Added by Discern Expert.Performed By: #### 0963148, 5304092, 9172332, 06057094, 7667565 ####[facility] [address] [place], [place] [address]Diwtkrnqp/Leukocytes Auto (Bld) [Pure # fraction]0.6 E9/LNormal0.2-1.0[facility] HospitalComment on above:Order Comment: Order Added by Discern Expert.Performed By: #### 2669505, 4841653, 1746841, 51148523, 7734072 ####[address] [address]Nxbzpzdpojy/100 WBC (Bld)62.3 %Ayedmv28.0-75.0 [facility] HospitalComment on above:Order Comment: Order Added by Discern Expert.Performed By: #### 4597848, 9020962, 3939604, 14287824, 8575579 ####[address] [address] Neutrophils/Leukocytes Auto (Bld) [Pure # fraction]3.0 E9/LNormal2.0-7.5FWright-Patterson Medical CenterComment on above:Order Comment: Order Added by Discern Expert.Performed By: #### 7786490, 5701420, 9507276, 60097951, 3928541 ####[address] [address]ZVHqb 67-99-6791Oizan gap [Moles/Vol]8 mmol/LNormal6-16[facility] Comment on above:Performed By: #### 8473828, 7534411, 4730190, 92569928, 8847539 ####[address] [address] Calcium [Mass/Vol]8.3 mg/dLLow8.9-11.1FWright-Patterson Medical CenterComment on above:Performed By: #### 8390377, 2101999, 5355534, 97133920, 0822759 ####[facility] [address] [place], [place] [address]Nycbrvxv [Moles/Vol]97 mmol/XKrn139-036PpmmhfAvita Health System Bucyrus HospitalComment on above: Performed By: #### 8990309, 1805083, 5873730, 76606075, 3210010 ####[facility] [address] [place], [place] [address]IJ9 [Moles/Vol]31 mmol/QTipcnb70-26CfupbjAvita Health System Bucyrus HospitalComment on above:Performed By: #### 4919785, 9846152, 6023629, 73395535, 9124244 ####[facility] [address] [place], [place] [address]Jgkiycbefj [Mass/Vol]0.9 mg/dLNormal 0.5-1.3FWright-Patterson Medical CenterComment on above:Performed By: #### 5980994, 9653289, 1748401, 48371041, 0681502 ####[facility] [address] [place], [place] [address]Syhnukl [Mass/Vol]86 mg/iPXzoino07-299 [facility] HospitalComment on above:Result Comment: If this glucose result represents a fasting glucose, interpretation should refer tothe following reference range: 55-99 mg/dLPerformed By: #### 4045205, 8961527, 0629774, 50744782, 2084063 ####[facility] [address] [place], [place] [address]Hxfikrxrv [Moles/Vol]3.2 mmol/LLow3.5-5.3FWright-Patterson Medical CenterComment on above:Performed By: #### 5529007, 0274205, 4366632, 85330374, 0858045 ####[facility] [address]mcaxg[address] [facility], [place] [address]Zlzeid [Moles/Vol]133 mmol/SYfg408-356Jlcske Nick Medical CenterComment on above:Performed By: #### 1550545, 3148512, 6847438, 35672845, 8926488 ####[facility] [address] [place], [place] [address]Oqkg nitrogen [Mass/Vol]27 mg/dLHigh5-21[facility] HospitalComment on above:Performed By: #### 3078059, 3974550, 9754957, 01482535, 8655874 ####[facility] [address] [place], [place] [address]Gqpf nitrogen/Creatinine [Mass ratio]30 No GqjwiLerg60-39KmbndyAvita Health System Bucyrus Hospital Comment on above:Performed By: #### 4841423, 0224034, 4618241, 93153760, 8258170 ####[address] [address]MAY w/ Auto Diffon 17-18-1953Ledvhpwgfze distribution width (RBC) [Ratio]13.8 % Juwupz93.9-14.2FWright-Patterson Medical CenterComment on above:Performed By: #### 9493568, 9438147, 9606307, 97435303, 5896011 ####[address] [place], [place] [address]Noedoycity (Bld) [Volume fraction] 30.7 %Low34.0-46.0[facility] HospitalComment on above:Performed By: #### 6550850, 4261043, 3471965, 35014363, 2217641 ####[address] [place], [place] [address]Bwuiqcohza (Bld) [Mass/Vol]10.5 g/dL Low12.0-16.0[facility] HospitalComment on above:Performed By: #### 5907082, 9172419, 6310831, 55254182, 8670834 ####[address] [place], [place] [address]CGE (RBC) [Entitic mass]29.5 pgNormal 27.0-34.0[facility] HospitalComment on above:Performed By: #### 0542655, 0291158, 4966252, 18460112, 0259806 ####[facility] [address] [address]JTJE (RBC) [Mass/Vol]34.1 g/dLNormal 31.4-36.0[facility] HospitalComment on above:Performed By: #### 1845674, 5331865, 4565363, 01557874, 0304609 ####[address] [address]IJU (RBC) [Entitic vol]86.6 fLNormal 80.0-100.0[facility] HospitalComment on above:Performed By: #### 4679760, 7729524, 8161095, 21471151, 0379813 ####[address] [address]Cdyoiesr mean volume (Bld) [Entitic vol]7.6 fLNormal6.4-10.8[facility] HospitalComment on above:Performed By: #### 4405305, 7881927, 1817040, 33172327, 9197520 ####[address] [address]Kmgtaorex (Bld) [#/Vol]186.0 E9/PHzpnuf967.0-500.0[facility] HospitalComment on above:Performed By: #### 6896895, 8575786, 9484890, 72513832, 8570555 ####[address] [address]KNF (Bld) [#/Vol]3.6 E12/LLow 4.3-5.9[facility] HospitalComment on above:Performed By: #### 6187653, [id number], [id number], [id number], [id number] ####[address] [place] [address]CRL corrected for nucl RBC Auto (Bld) [#/Vol]4.9 E9/LNormal4.0-11.0[facility] HospitalComment on above: Performed By: #### [id number], [id number], [id number], [id number], [id number] ####[facility] [address] [place], [place] [address]AFFJFKAXMArculyd By: SYSTEM SYSTEM on 68-25-2033Ptgur gap [Moles/Vol]8 mmol/LNormal6 - 16 mEq/LFTMC RemisolCalcium [Mass/Vol]8.3 mg/dLLow8.9 - 11.1 mg/dLFTMC RemisolChloride [Moles/Vol]97 mmol/XPro402 - 111 mmol/LFTMC RemisolCK [Catalytic activity/Vol]99 [iU]/lWysyvg99 - 261 Int._Unit/LFTMC RemisolCO2 [Moles/Vol]31 mmol/TFzbsev73 - 31 mmol/LFTMC RemisolCreatinine [Mass/Vol]0.9 mg/dLNormal0.5 - 1.3 mg/dLFTMC RemisolGFR/1.73 sq M.predicted among non-blacks MDRD (S/P/Bld) [Vol rate/Area]63 mL/min/1.73 g2Ytozrz>=59mL/min/1.73 m2FT Chem SGlucose [Mass/Vol]86 mg/dL Zwxueb48 - 199 mg/dLFTMC RemisolPotassium [Moles/Vol]3.2 mmol/LLow3.5 - 5.3 mmol/LFTMC RemisolSodium [Moles/Vol]133 mmol/EOjq061 - 145 mmol/LFTMC Remisol Urea nitrogen [Mass/Vol]27 mg/dLHigh5 - 21 mg/dLFT RemisolUrea nitrogen/Creatinine [Mass ratio]30 mg/qrPivj35 - 20[facility] [place] RemisolCHEMISTRYOrdered By: Hebert Begum on 90-30-4513Xbwfvltwcr [Osmolality]283 mosm/isGcphtu616 - 295 mOsm/kgFTMC Man UA SSCKon 83-64-1052JD [Catalytic activity/Vol]99 Int._Unit/WHqnmak12-845UtcxdwAvita Health System Bucyrus HospitalComment on above:Performed By: #### [id number], [id number] ####[facility] [address] [place], [place] [address]AC Clinical Summaryon [id number] Clinical SummaryNormal [facility] Patient Education Noteon 47-77-5831GO Patient Education NoteNormalC[facility] Patient Summaryon [id number] Patient SummaryNormLouis Stokes Cleveland VA Medical CenterHEMATOLOGYOrdered By: SYSTEM SYSTEM on 42-18-4682Etbgfjivs/100 WBC (Bld)0.6 %Normal0.0 - 2.0 %[facility] HemeAutoSS Basophils/Leukocytes Auto (Bld) [Pure # fraction]0.0 E9/LNormal0.0 - 0.2 E9/L [facility] HemeAutoSSEosinophils/100 WBC (Bld)2.8 %Normal0.0 - 8.0 %[facility] HemeAutoSS Eosinophils/Leukocytes Auto (Bld) [Pure # fraction]0.1 E9/LNormal0.0 - 0.5 E9/L [facility] HemeAutoSSLymphocytes/100 WBC (Bld)22.4 %Amhprn68.0 - 50.0 %[facility] HemeAutoSS Lymphocytes/Leukocytes Auto (Bld) [Pure # fraction]1.1 E9/LNormal1.0 - 4.0 E9/L [facility] HemeAutoSSMonocytes/100 WBC (Bld)11.9 %Normal4.0 - 14.0 %[facility] HemeAutoSS Monocytes/Leukocytes Auto (Bld) [Pure # fraction]0.6 E9/LNormal0.2 - 1.0 E9/L [facility] HemeAutoSSNeutrophils/100 WBC (Bld)62.3 %Icupxa76.0 - 75.0 %[facility] HemeAutoSS Neutrophils/Leukocytes Auto (Bld) [Pure # fraction]3.0 E9/LNormal2.0 - 7.5 E9/L [facility] HemeAutoSSHEMATOLOGYOrdered By: Aurea Wick on 06-24-3042Vbhtbrlagpq distribution width (RBC) [Ratio]13.8 %Bgauek06.9 - 14.2 %FT HemeAutoSS Hematocrit (Bld) [Volume fraction]30.7 %Low34.0 - 46.0 %FT HemeAutoSS Hemoglobin (Bld) [Mass/Vol]10.5 g/dLLow12.0 - 16.0 gm/dLFT HemeAutoSSMCH (RBC) [Entitic mass]29.5 ejUpxhsj38.0 - 34.0 pgFTMC HemeAutoSSMCHC (RBC) [Mass/Vol] 34.1 g/aVSkvuqq01.4 - 36.0 gm/dLFT HemeAutoSSMCV (RBC) [Entitic vol]86.6 fL Utjqlv37.0 - 100.0 fLFT HemeAutoSSPlatelet mean volume (Bld) [Entitic vol]7.6 fLNormal6.4 - 10.8 fLFT HemeAutoSSPlatelets (Bld) [#/Vol]186.0 E9/EIwjcuh756.0 - 500.0 E9/LFT[facility] HemeAutoSSRBC (Bld) [#/Vol]3.6 E12/LLow4.3 - 5.9 E12/LFC HemeAutoSSWBC corrected for nucl RBC Auto (Bld) [#/Vol]4.9 E9/LNormal4.0 - 11.0 E9/LFC HemeAutoSSInterdisciplinary Note - Case Manageron 08-02-2022 Interdisciplinary Note - Case ManagerHolzer Medical Center – JacksonComment on above:Result Comment: Electronically Signed By: Jg GONZALEZ, Stacey\.chepe\Date and Time Signed: 08/02/22 09:27 EDTInterdisciplinary Note - OTon 08-02-2022 Interdisciplinary Note - OTOt six clicks score = no further OT inpatient needs. Patient is INd w/ basic adls and modified Ind w/ transfers. Patient has all necessary bathroom dme in place at home. DC inpatient Ot services.Normal [facility] HospitalMRI Brain w/o Contraston 19-51-1785UZF Brain w/o ContrastHolzer Medical Center – JacksonMessage from Medicareon 08-02-2022 Message from [id number]#1.00CD:127Normal [facility] Hospitalitor Recordon 75-53-4208Gpssrrp Record [id number]#1.00CD:127[facility] [id number]#1.00CD:127Norm[facility] Hospitalitor Record [id number]#1.00CD:127[facility] [id number]#1.00CD:127Norm[facility] Record [id number]#1.00CD:[address] [place], [place] [address]itor [id number]#1.00CD:127Normal [facility] Hospitalitor Record [id number]#1.00CD:[address] [place], [place] [address]Osmolalityon 99-77-8673Xpjwjsphfr [Osmolality]283 mosm/dgLngmvc830-217 [facility] HospitalComment on above:Performed By: #### 8970179, 0324164, 8532701, 35474058, 1537718 ####[facility] [address] [place], [place] [address]Thkkgdfc Note-Physicianon 20-10-5316Grxgeqkj Note-PhysicianHolzer Medical Center – JacksonComment on above:Result Comment: Electronically Signed By: Alicia PORTILLO\.br\Date and Time Signed: 08/02/22 12:47 EDT\.br\Electronically Co-Signed By: Roz RAMIREZ MD\.br\Date and Time Co-Signed: 08/03/2311:59 EDTRAD - MRI Screening Formon 57-83-4975YJH - MRI Screening [id number]#1.00CD:127[facility] Center – JacksonReference Laboratory TestingOrdered By: Yandy DomainUser on 02-93-5035Wrgginrj [Catalytic activity/Vol]3.7 unit/LInvalid Interpretation Code3.3-10.3unit/LFTMC SendOutsSSComment on above:Result Comment: Performed at: [facility] [id number] PhD Jessie Merino Creatinineon 41-99-4643Olklxubzti (U) [Mass/Vol]35.7 mg/dLInvalid Interpretation [facility] Comment on above:Result Comment: The reference range and other method performance specifications have not been established for this test; results should be integrated into the clinical context for interpretation.Performed By: #### 6297390, 8888223, 6570702 ####[facility] [address] [place], [place] [address]R Osmolalityon 08-02-2022U Msvsxomkrm902 mOsm/kg Vpluao90-4491FrkxnnAvita Health System Bucyrus HospitalComment on above:Performed By: #### 5729088, 9374525, 8040608 ####[facility] [address] [place], [place] [address]H Sodiumon 37-22-4621Alfhuc (U) [Moles/Vol]27 mmol/LInvalid Interpretation [facility] HospitalComment on above:Result Comment: The reference range and other method performance specifications have not been established for this test; results should be integrated into the clinical context for interpretation.Performed By: #### 2997820, 3287553, 1227410 ####[facility] [address] [place], [place] [address]uJJQrr 33-33-8242AMR/1.73 sq M.predicted among non-blacks MDRD (S/P/Bld) [Vol rate/Area]63 mL/min/1.73 y3Qejiuq>=59[facility] HospitalComment on above:Order Comment: Order added by Discern Expert.Result Comment: Chronic kidney disease could be indicated at eGFR's of less than 60 mL/min/1.73m2. K idney failure is indicated at less than 15 mL/min/1.73m2.Performed By: #### 3712521, 1911118, 6036866, 27738068, 9829755 ####[address] [place], [place] [address]Bhbq Diffon 18-93-9703Oogfgmdie/100 WBC (Bld)0.3 %Normal0.0-2.0[facility] HospitalComment on above:Order Comment: Order Added by Josef Expert.Performed By: #### 70487884, 4505037, 0282641, 3865542, 9132950, 01871557, 72871767, 22183738 ####[address] [place], [place] [address]Locatdkqg/Leukocytes Auto (Bld) [Pure # fraction]0.0 E9/LNormal0.0-0.2FWright-Patterson Medical CenterComment on above:Order Comment: Order Added by Josef Expert.Performed By: #### 79585185, 2550974, 8766528, 9856278, 3293678, 73907757, 99944537, 04249483 ####[facility] [address] [place] [address] Eosinophils/100 WBC (Bld)1.9 %Normal0.0-8.0[facility] HospitalComment on above:Order Comment: Order Added by Discern Expert.Performed By: #### 08460102, 4564563, 4106357, 5888467, 2545955, 75808782, 33144834, 42456447 ####[facility] [address] [place] [address] Eosinophils/Leukocytes Auto (Bld) [Pure # fraction]0.1 E9/LNormal0.0-0.5FWright-Patterson Medical CenterComment on above:Order Comment: Order Added by Josef Expert.Performed By: #### 94493486, 8005511, 1728811, 7737376, 2914760, 16082873, 62731354, 92899436 ####[address] [place], [place] [address]Hgaonfscuci/100 WBC (Bld)17.1 %Wikfpb82.0-50.0 [facility] HospitalComment on above:Order Comment: Order Added by Discern Expert.Performed By: #### 34518693, 1058662, 9073633, 0743154, 0977305, 06978544, 80184505, 91810892 ####[address] [address]Hpnsxlqfkir/Leukocytes Auto (Bld) [Pure # fraction] 1.3 E9/LNormal1.0-4.0[facility] HospitalComment on above:Order Comment: Order Added by Discern Expert.Performed By: #### 00944298, 5073860, 0796896, 0018481, 6037200, 29346832, 19610338, 89204146 ####[address] [address]Cgicxriaj/100 WBC (Bld)8.4 %Normal 4.0-14.0[facility] HospitalComment on above:Order Comment: Order Added by Discern Expert.Performed By: #### 24821376, 5084270, 9596052, 5356095, 6905886, 34724959, 40311941, 00339491 ####[address] [address]Tmjkxhmse/Leukocytes Auto (Bld) [Pure # fraction]0.6 E9/LNormal0.2-1.0[facility] HospitalComment on above: Order Comment: Order Added by Discern Expert.Performed By: #### 00992990, 9894427, 5854088, 7715261, 4001988, 91134688, 90732192, 34787229 ####[address] [address]Uztljztccfg/100 WBC (Bld)72.3 %Ggocwd17.0-75.0[facility] HospitalComment on above:Order Comment: Order Added by Discern Expert.Performed By: #### 49008811, 4252340, 5059039, 7986944, 7120966, 25993864, 49726615, 99468780 ####[facility] [address] [place], [place] [address]Epaybwyieml/Leukocytes Auto (Bld) [Pure # fraction]5.5 E9/LNormal2.0-7.5FWright-Patterson Medical CenterComment on above:Order Comment: Order Added by Discern Expert.Performed By: #### 14571262, 4348560, 8451020, 3116625, 8760566, 54670082, 12284605, 89859048 ####[address] [place], [place] [address]NMJsb 14-64-4911Lizjtpndmb [Mass/Vol]1.2 mg/dLNormal0.5-1.3FW[facility] Comment on above:Performed By: #### 87419582, 9151821, 3437464, 9237119, 9320292, 66891769, 01981865, 11686226 ####[facility] [address] [place], [place] [address]Ugse nitrogen [Mass/Vol]39 mg/dLHigh 5-21[facility] HospitalComment on above:Performed By: #### 09881360, 8946563, 5928571, 2531659, 5100994, 66805964, 20081043, 65314511 ####[facility] [address] [place], [place] [address]Plnv nitrogen/Creatinine [Mass ratio]32 No TpeniNnil25-00PocomtAvita Health System Bucyrus Hospital Comment on above:Performed By: #### 48127468, 4054135, 6624075, 7312473, 7833793, 04150972, 29004939, 85960712 ####[facility] [address] [place], [place] [address]Anvia gap [Moles/Vol]17 mmol/LHigh 6-16[facility] HospitalComment on above:Performed By: #### 47147975, 9706580, 8304471, 6505353, 3800816, 94967377, 32574659, 27268740 ####[facility] [address] [place], [place] [address]Xmehyci [Mass/Vol]9.3 mg/dLNormal8.9-11.1FWright-Patterson Medical CenterComment on above: Performed By: #### 19298502, 6973667, 9560759, 7647774, 3839044, 11087380, 02376764, 15556914 ####[facility] [address] [place], [place] [address]Uscvznlj [Moles/Vol]82 mmol/MXvt753-945DtrptkAvita Health System Bucyrus HospitalComment on above:Performed By: #### 13672735, 7796528, 7233917, 1810380, 4335446, 33516973, 14494792, 94392527 ####[facility] [address] [place], [place] [address]FQ2 [Moles/Vol]32 mmol/FRjct11-65 [facility] HospitalComment on above:Performed By: #### 94428845, 6261468, 1056597, 5645567, 2628608, 53779898, 05606157, 43874618 ####[facility] [address] [place], [place] [address]Rzjeabv [Mass/Vol]126 mg/gFUbqdsu93-773CbvxzaAvita Health System Bucyrus HospitalComment on above: Result Comment: If this glucose result represents a fasting glucose, interpretation should refer tothe following reference range: 55-99 mg/dL Performed By: #### 79061798, 2387688, 0730981, 6695070, 2850933, 32706057, 39283432, 10216777 ####[facility] [address] [place], [place] [address]Hpnmsuxdt [Moles/Vol]2.9 mmol/LLow3.5-5.3FWright-Patterson Medical CenterComment on above:Performed By: #### 50234692, 7740854, 6737209, 4821971, 2248313, 91772067, 45805238, 80108586 ####[facility] [address] [place], [place] [address]Ahjcqc [Moles/Vol]128 mmol/LLow 135-145[facility] HospitalComment on above:Performed By: #### 69877474, 6184514, 2544057, 2438193, 2768357, 67038601, 74371464, 99597111 ####[facility] [address] [place], [place] [address]AXY w/ Auto Diff on 42-66-4898Mzzcfuniexb distribution width (RBC) [Ratio]13.8 %Tcxntw77.9-14.2 [facility] HospitalComment on above:Performed By: #### 27890837, 3720258, 5540191, 5271103, 7358210, 32051460, 37171740, 70880782 ####[facility] [address] [place], [place] [address]Oackpcyivz (Bld) [Volume fraction]35.6 %Zwvfmi72.0-46.0[facility] HospitalComment on above:Performed By: #### 24372493, 7182931, 0453807, 6893686, 3015584, 34950774, 70882603, 20060538 ####[facility] [address] [place], [place] [address]Yyygkkujsr (Bld) [Mass/Vol]12.2 g/bOQvzpew70.0-16.0[facility] HospitalComment on above:Performed By: #### 60518894, 4423242, 7949354, 4631614, 7183915, 70503017, 76754971, 44455951 ####[facility] [address] [place], [place] [address]QIN (RBC) [Entitic mass]29.3 pcIurgwc62.0-34.0[facility] HospitalComment on above:Performed By: #### 96643960, 4051492, 6641537, 1268961, 1318806, 70205298, 97505473, 09844716 ####[address] [place], [place] [address]MYPG (RBC) [Mass/Vol]34.3 g/bXRorikw40.4-36.0[facility] HospitalComment on above:Performed By: #### 85837110, 4195294, 5808922, 3183246, 9970885, 28609241, 72184862, 38171784 ####[address] [address]VDT (RBC) [Entitic vol]85.5 xMAgiuxo47.0-100.0[facility] HospitalComment on above:Performed By: #### 80657664, 8572961, 9319943, 7061437, 8106281, 63731287, 24509215, 52431731 ####[address] [address]Zjjiwepf mean volume (Bld) [Entitic vol]8.0 fLNormal6.4-10.8[facility] HospitalComment on above:Performed By: #### 07313528, 4919033, 2138920, 7290697, 1574640, 97883128, 32804890, 90030480 ####[address] [address]Gwffbqybv (Bld) [#/Vol]233.0 E9/EPowtaz518.0-500.0[facility] HospitalComment on above:Performed By: #### 59518764, 5684732, 8011584, 7477280, 4036490, 72132686, 67200256, 79420808 ####[address] [address]MHJ (Bld) [#/Vol]4.2 E12/LLow4.3-5.9 [facility] HospitalComment on above:Performed By: #### 75288466, 0788424, 8919173, 8817688, 4235997, 65329562, 84151595, 99646518 ####[facility] [address] [place], [place] [address]LDF corrected for nucl RBC Auto (Bld) [#/Vol]7.7 E9/LNormal4.0-11.0[facility] Comment on above:Performed By: #### 08967021, 4503711, 2313179, 9725667, 2757634, 15814291, 79689479, 96784115 ####[facility] [address] [place], [place] [address]OGEXONQMNQmcwmkg By: Shreya Suazo on 32-28-8410Evdmouocen (U) [Mass/Vol]35.7 mg/dLInvalid Interpretation CodeFTMC RemisolSodium (U) [Moles/Vol]27 mmol/LInvalid Interpretation CodeFTMC RemisolU Mdrjxdybje567 mOsm/rjWmfkaf99 - 1400 mOsm/kgFTMC Man UA SSCHEMISTRYOrdered By: SYSTEM SYSTEM on 50-20-7432Dbueozone [Mass/Vol]1.8 mg/dLNormal1.3 - 2.4 mg/dL [facility] RemisolTroponin I.cardiac [Mass/Vol]5.10 pg/mLLow10.10 - 27.10 pg/mLFTMC RemisolTSH Qn2.25 m[IU]/LNormal0.34 - 5.60 mcIU/mLFTMC RemisolCHEMISTRYOrdered By: Lab ROPUser on 34-48-1313Xprixri [Mass/Vol]140 mg/iDVcgw57 - 99 mg/dLFTMC POC SubsectionComment on above:Result Comment: Notified RN/MDPOC Device SN [id number] Interpretation CodeFTMC POC SubsectionPOC User [id number] Invalid Interpretation CodeFTMC POC SubsectionPOC UsernameYUMANG, ARGEIInvalid Interpretation CodeFTMC POC SubsectionCOAGULATIONOrdered By: Shreya Suazo on 52-92-6647kVLW Coag (PPP) [Time]36.9 sHigh25.1 - 36.5 second(s)[facility] Auto CoagINR Coag (PPP) [Relative time]1.1 {INR}Invalid Interpretation CodePARKSIDE PSYCH[facility]ATR[facility] Auto CoagPT Coag (PPP) [Time]12.0 sNormal9.4 - 12.5 second(s)[facility] Auto CoagCT Head or Brain w/o Contraston 43-02-0105OF Head or Brain w/o ContrastHolzer Medical Center – JacksonCapillary Glucose POCon 52-16-0555Tvuenwv [Mass/Vol]140 mg/lLXxey63-07 [facility] HospitalComment on above:Result Comment: Notified RN/MD Performed By: #### [id number] ####[facility] [address] [place], [place] [address]Gzgqbos for Treatmenton 56-80-6605Jnqbuzn for [id number]#1.00CD:127[facility] Note-Physicianon 13-57-8525MR Note-PhysicianHolzer Medical Center – JacksonComment on above:Result Comment: Electronically Signed By: Bentno Sutherland DO\.br\Date and Time Signed: 08/01/22 20:46 EDTED Note-[facility] SystemComment on above:Result Comment: Electronically Signed By: Hank Beard DO\.br\Date and Time Signed: 08/01/22 18:41EDTHEMATOLOGYOrdered By: SYSTEM SYSTEM on 88-70-8263Tqerzfagb/100 WBC (Bld) 0.3 %Normal0.0 - 2.0 %[facility] HemeAutoSSBasophils/Leukocytes Auto (Bld) [Pure # fraction]0.0 E9/LNormal0.0 - 0.2 E9/LFTMC HemeAutoSSEosinophils/100 WBC (Bld)1.9 %Normal0.0 - 8.0 %[facility] HemeAutoSSEosinophils/Leukocytes Auto (Bld) [Pure # fraction]0.1 E9/LNormal0.0 - 0.5 E9/LFTMC HemeAutoSSLymphocytes/100 WBC (Bld) 17.1 %Wigicu90.0 - 50.0 %[facility] HemeAutoSSLymphocytes/Leukocytes Auto (Bld) [Pure # fraction]1.3 E9/LNormal1.0 - 4.0 E9/LFT[facility] HemeAutoSSMonocytes/100 WBC (Bld)8.4 %Normal4.0 - 14.0 %[facility] HemeAutoSSMonocytes/Leukocytes Auto (Bld) [Pure # fraction]0.6 E9/LNormal0.2 - 1.0 E9/LFT[facility] HemeAutoSSNeutrophils/100 WBC (Bld) 72.3 %Mbejwv42.0 - 75.0 %[facility] HemeAutoSSNeutrophils/Leukocytes Auto (Bld) [Pure # fraction]5.5 E9/LNormal2.0 - 7.5 E9/LFT[facility] HemeAutoSSHEMATOLOGYOrdered By: Stephani Cruz on 42-58-4597Exwejmuayjl distribution width (RBC) [Ratio]13.8 % Giqdio25.9 - 14.2 %[facility] HemeAutoSSHematocrit (Bld) [Volume fraction]35.6 %Normal 34.0 - 46.0 %[facility] HemeAutoSSHemoglobin (Bld) [Mass/Vol]12.2 g/zHVqidpj94.0 - 16.0 gm/dLFTMC HemeAutoSSMCH (RBC) [Entitic mass]29.3 dlQhcpuc36.0 - 34.0 pgFTMC HemeAutoSSMCHC (RBC) [Mass/Vol]34.3 g/aZFzekvy94.4 - 36.0 gm/dLFTMC HemeAutoSS MCV (RBC) [Entitic vol]85.5 pDLmefox75.0 - 100.0 fLFTMC HemeAutoSSPlatelet mean volume (Bld) [Entitic vol]8.0 fLNormal6.4 - 10.8 fLFTMC HemeAutoSSPlatelets (Bld) [#/Vol]233.0 E9/YEyydpq915.0 - 500.0 E9/LFTMC HemeAutoSSRBC (Bld) [#/Vol] 4.2 E12/LLow4.3 - 5.9 E12/LFTMC HemeAutoSSWBC corrected for nucl RBC Auto (Bld) [#/Vol]7.7 E9/LNormal4.0 - 11.0 E9/LFT[facility] HemeAutoSSMagnesiumon 08-01-2022 Magnesium [Mass/Vol]1.8 mg/dLNormal1.3-2.4FWright-Patterson Medical CenterComment on above:Performed By: #### 17376297, 4850615, 6143170, 5787765, 2743688, 85269473, 88386444, 53584213 ####[facility] [address] [place], [place] [address]QG & PTTon 07-82-1989lRDC Coag (PPP) [Time]36.9 second(s) High25.1-36.5FWright-Patterson Medical CenterComment on above:Result Comment: Parameter 15 days - 4 weeks 1 - 5 months 6 - 11 months 1 - 5 years 6 - 10 years 11 - 17 years PTT Mean: 35.4 (27.6-45.6) Mean: 33.5 (24.8-40.7) Mean: 32.4 (25.1-40.7) Mean: 31.6 (24.0-39.2) Mean: 31.6 (26.9-38.7) Mean: 31.0 (24.6-38.4) Pediatric Reference ranges were obtained from astudy by Dharmesh Marin et al. prepared from 1437 samples obtained at 7 different centers using theTeralynk coagulation reagent and instrumentation as [facility]. Currently there are no coagulation studies available worldwide for children to 14 days, and no normal ranges. Heparin therapeutic range (represented by Anti-Factor Xa activity of 0.2 - 0.4 U/mL) corresponds to PTT of 56.6 - 109.0 sec.Performed By: #### 88220327, 1418666, 7478661, 6179867, 2794953, 59606355, 15452761, 24972459 ####[facility] [address] [place], [place] [address]JFS Coag (PPP) [Relative time]1.1 {INR}Invalid Interpretation CodeFisher [facility]inai Hospital Of BaltimoreComment on above:Result Comment: INR results are specifically intended to assess patients stabilized on long-term Anticoagulation therapy suggested INR?s ?Less Intensive Anticoagulation? 2.0 ? 3.0Conventional Range 3.0 ? 4.5Performed By: #### 45898120, 4728629, 6468527, 6879235, 5652870, 09021495, 99547342, 09153554 ####[facility] [address] [place], [place] [address]MT Coag (PPP) [Time]12.0 second(s)Normal9.4-12.5Fisher [facility] Hospital Of BaltimoreComment on above:Result Comment: 15 days - 4 weeks 1 - 5 months 6 -11 months 1 ? 5 years 6 ? 10 years 11 -17 years Mean: 11.2 (9.5 ? 12.6) Mean: 11.0 (9.7 ? 12.8) Mean: 11.0 (9.8 ? 13.0) Mean: 11.3 (9.9 ? 13.4) Mean:11.7 (10.0 ? 14.6) Mean: 11.8 (10.0 - 14.1) Pediatric Reference ranges were obtained from a study by Dharmesh Marin et al. prepared from 1437 samples obtained at 7 different centers using the same coagulation reagent and instrumentation as [facility]. Currently there are no coagulation studies available worldwide for children to 14 days, and no normal ranges.Performed By: #### 66671964, 3597591, 2241211, 8362095, 0367751, 32531648, 50770233, 79157482 ####[facility] [address] [place], [place] [address]UJF With T4fr Reflexon 20-78-4230XIL Qn2.25 m[IU]/LNormal0.34-5.60[facility] Comment on above:Performed By: #### 53839362, 4565024, 6058269, 6211720, 5734953, 15023460, 71863368, 68145115 ####[facility] [address] [place], [place] [address]Jwjkbnbj 0 Hr.on 00-96-4871Fzyqcmze I.cardiac [Mass/Vol]5.10 pg/mLLow10.10-27.10[facility] HospitalComment on above:Result Comment: The 95% CI (Confidence Interval) PPV (Positive Predictive Value) for myocardial infarction in females is 38 pg/mL, in males 51 pg/mL. The results should be used in conjunction with clinical conditions of myocardial infarction.(Access High Sensitivity Troponin I Instructions For Use, Raegan Nolan, October 2017)Performed By: #### 83670396, 9084124, 8643468, 2560507, 1359440, 15693024, 20426375, 57500835 ####[facility] [address] [place], [place] [address]NO With Cult Reflexon 08-01-2022 Bilirubin Ql (U)NegativeNormalNegativeAvita Health System Bucyrus HospitalComment on above:Performed By: #### 99439677 ####[address] [address]Lhiqklr (U)CLEARNormalClearAvita Health System Bucyrus HospitalComment on above:Performed By: #### 86597583 ####[address] [address]Vesfy (U)YELLOWNormalYellow [facility] HospitalComment on above:Performed By: #### [id number] ####[address] [place] [address] Epithelial cells.squamous LM.HPF (Urine sed) [#/Area]6-0Xhvmhz0-5Byggsu [facility] BaltimoreComment on above:Performed By: #### [id number] ####[facility] [address] [place], [place] [address]Iarxdfc Test strip (U) [Mass/Vol]NegativeNormalNegativeAvita Health System Bucyrus HospitalComment on above: Performed By: #### [id number] ####[address] [place], [place] [address]Hazaexcdga Ql (U)NegativeNormalNegativeAvita Health System Bucyrus HospitalComment on above:Performed By: #### [id number] ####[place] [address] [address]Hfdgomd (U) [Mass/Vol] NegativeNormalNegativeAvita Health System Bucyrus HospitalComment on above:Performed By: #### [id number] ####[address] [address]Ygyekls.plasma/[place].RBC (Bld) [Mass ratio]9-7Imcqiu1-5Gmsmdt [facility] BaltimoreComment on above:Performed By: #### [id number] ####[address] [address]Fpdryfr Ql (U)Negative NormalNegativeAvita Health System Bucyrus HospitalComment on above:Performed By: #### [id number] ####[address] [address]pP (U)7.0 [pH]Invalid Interpretation Code5.0-9.0[facility] Comment on above:Performed By: #### [id number] ####[address] [address] (U) [Mass/Vol]NegativeNormal NegativeAvita Health System Bucyrus HospitalComment on above:Performed By: #### [id number] ####[address] [address] Specific gravity (U) [Rel density]<=1.005Invalid Interpretation Code1.005-1.030 [facility] HospitalComment on above:Performed By: #### [id number] ####[address] [address]Bpht of Urine collection methodClean CatchNormalAvita Health System Bucyrus HospitalComment on above:Performed By: #### [id number] ####[address] [address]Tgfgbzyonqdf Qn (U)0.2 {Lexie'U}/dLNormal0.0-1.0 [facility] HospitalComment on above:Performed By: #### [id number] ####[place] [facility] [address] [facility], [place] [address]NRX Auto Ql (U)NegativeNormalNegativeFisher [facility] BaltimoreComment on above: Performed By: #### [id number] ####Enrrique [facility] [address] [place], [place] [address]HPJ LM.HPF (Urine sed) [#/Area]2-4Zqekuj6-2Ykmgso [facility] BaltimoreComment on above:Performed By: #### [id number] ####[facility] [address] [place], [place] [address]KBFHGNDSUQ Ordered By: Shreya Suazo on 00-30-3754Cvlbzidhr Ql (U)Negative (08/01/22 7:57 PM)NormalNegativePARKS[facility] Auto SSClarity (U)Clear (08/01/22 7:57 PM)NormalClearFMUSCOGEE UA Auto SSColor (U)Yellow (08/01/22 7:57 PM)NormalYellowPARKSIDE PSYCHIATRIC [facility] [place] [facility] Auto SSEpithelial cells.squamous LM.HPF (Urine sed) [#/Area]0-2 /HPFNormal0-2/HPFPARKSIDE PSYCHIATR[facility] [place] U[facility] Auto SSGlucose Test strip (U) [Mass/Vol]Negative (08/01/22 7:57 PM)NormalNegativePARKSIDE [facility] [place] [facility] Auto SSHemoglobin Ql (U)Negative (08/01/22 7:57 PM)NormalNegativePARKSIDE [facility] [place] Auto SSKetones (U) [Mass/Vol]Negative (08/01/22 7:57 PM)NormalNegativePARKSIDE [facility] [place] UA Auto SSLithium.plasma/[place].RBC (Bld) [Mass ratio]0-3 /HPFNormal0-3/HPFPARKSIDE [facility] [place] [facility] Auto SSNitrite Ql (U)Negative (08/01/22 7:57 PM)NormalNegativePARKSIDE [facility] [place] [facility] Auto SSpH (U)7.0 *NA* (08/01/22 7:57 PM)Invalid Interpretation Code5.0 - 9.0[facility] Auto SSProtein (U) [Mass/Vol]Negative (08/01/22 7:57 PM)NormalNegativePARKSIDE [facility] [place] [facility] Auto SSSpecific gravity (U) [Rel density] <=1.005 *NA* (08/01/22 7:57 PM)Invalid Interpretation Code1.005 - 1.030[facility] Auto SSUA Spec DescClean Catch (08/01/22 7:57 PM)NormalPARKSIDE [facility]YCH[facility]ATR[facility] Auto SSUrobilinogen Qn (U)[id number] {Lexie'U}/dLNormal0.0 - 1.0 EU/dLPARKSIDE PSYCH[facility]ATRIC [facility] [place] Auto SSWBC Auto Ql (U)Negative (08/01/22 7:57 PM)NormalNegativePARKSIDE [facility] Auto SSWBC LM.HPF (Urine sed) [#/Area]0-5 /HPFNormal0-5/HPFPARKSIDE [facility] [place] U[facility] Auto SSXR Chest Single Viewon 21-91-6697YG Chest Single ViewNormalAvita Health System Bucyrus HospitaleGFRon 29-69-9695MFQ/1.73 sq M.predicted among non-blacks MDRD (S/P/Bld) [Vol rate/Area]45 mL/min/1.73 m2Low >=59Av[facility] Bucyrus HospitalComment on above:Order Comment: Order added by Discern Expert.Result Comment: Chronic kidney disease could be indicated at eGFR's of less than 60 mL/min/1.73m2. Kidney failure is indicated at less than 15 mL/min/1.73m2.Performed By: #### [id number], [id number], [id number], [id number], [id number] ####[facility] [address] [place], [place] [address]Qohfzzb Screening.on 83-12-5927Yawel depression screening assessmentNoOwat[facility] 600 DO Work Phone: Fall risk assessmenta) No falls within the last year [facility] 600 DO Work Phone: Tobacco use status CPHSb) NoMMelrose Area Hospital 600 DO Work Phone: CHEMISTRYOrdered By: SYSTEM SYSTEM on 59-84-1641Bbdkr gap [Moles/Vol]11 mmol/LNormal6 - 16 mEq/LFTMC RemisolChloride [Moles/Vol]100 mmol/VWxf855 - 111 mmol/LFTMC RemisolCO2 [Moles/Vol]27 mmol/KDsvrzd57 - 31 mmol/LFTMC RemisolCobalamin (Vitamin B12) [Mass/Vol]541 pg/cFZcfycd88 - 1500 pg/mLFTMC RemisolFerritin [Mass/Vol]57 ng/aVAnkovd54 - 307 ng/mLFTMC Remisol Folate [Mass/Vol]ng/mLNormal>=6.7ng/mLFTMC RemisolIron [Mass/Vol]66 ug/dLNormal 35 - 153 mcg/dLFTMC RemisolIron binding capacity [Mass/Vol]308 ug/xSIkpfak224 - 400 mcg/dLFTMC RemisolLDH [Catalytic activity/Vol]145 [iU]/vXcnngu92 - 218 Int._Unit/LFTMC RemisolPotassium [Moles/Vol]3.9 mmol/LNormal3.5 - 5.3 mmol/LFTMC RemisolSodium [Moles/Vol]134 mmol/BAci093 - 145 mmol/LFTMC RemisolTransferrin [Mass/Vol]220 mg/gECxezor028 - 370 mg/dLFTMC RemisolTSH Qn3.88 m[IU]/LNormal0.34 - 5.60 mcIU/mLFTMC RemisolHEMATOLOGYOrdered By: SYSTEM SYSTEM on 06-29-2022 Basophils/100 WBC (Bld)0.8 %Normal0.0 - 2.0 %[facility] HemeAutoSSBasophils/Leukocytes Auto (Bld) [Pure # fraction]0.0 E9/LNormal0.0 - 0.2 E9/LFTMC HemeAutoSS Eosinophils/100 WBC (Bld)3.6 %Normal0.0 - 8.0 %[facility] HemeAutoSS Eosinophils/Leukocytes Auto (Bld) [Pure # fraction]0.2 E9/LNormal0.0 - 0.5 E9/L [facility] HemeAutoSSLymphocytes/100 WBC (Bld)17.3 %Zxmpbo36.0 - 50.0 %[facility] HemeAutoSS Lymphocytes/Leukocytes Auto (Bld) [Pure # fraction]0.9 E9/LLow1.0 - 4.0 E9/LFTMC HemeAutoSSMonocytes/100 WBC (Bld)9.6 %Normal4.0 - 14.0 %[facility] HemeAutoSS Monocytes/Leukocytes Auto (Bld) [Pure # fraction]0.5 E9/LNormal0.2 - 1.0 E9/L [facility] HemeAutoSSNeutrophils/100 WBC (Bld)68.7 %Vgecnm36.0 - 75.0 %[facility] HemeAutoSS Neutrophils/Leukocytes Auto (Bld) [Pure # fraction]3.7 E9/LNormal2.0 - 7.5 E9/L [facility] HemeAutoSSHEMATOLOGYOrdered By: Racquel Case on 75-55-6667Kijzgguupnr distribution width (RBC) [Ratio]15.5 %High10.9 - 14.2 %[facility] HemeAutoSSHematocrit (Bld) [Volume fraction]34.8 %Qohknw91.0 - 46.0 %[facility] HemeAutoSSHemoglobin (Bld) [Mass/Vol]11.6 g/dLLow12.0 - 16.0 gm/dLFTMC HemeAutoSSMCH (RBC) [Entitic mass] 29.2 zwAqiqbp30.0 - 34.0 pgFTMC HemeAutoSSMCHC (RBC) [Mass/Vol]33.2 g/dLNormal 31.4 - 36.0 gm/dLFTMC HemeAutoSSMCV (RBC) [Entitic vol]87.7 xLJcqxyo96.0 - 100.0 fLFTMC HemeAutoSSPlatelet mean volume (Bld) [Entitic vol]7.3 fLNormal6.4 - 10.8 fLFTMC HemeAutoSSPlatelets (Bld) [#/Vol]209.0 E9/AQsfxfj052.0 - 500.0 E9/LFTMC HemeAutoSSRBC (Bld) [#/Vol]4.0 E12/LLow4.3 - 5.9 E12/LFTMC HemeAutoSS Reticulocytes/100 RBC (Bld)1.2 %Normal0.5 - 1.5 %[facility] HemeAutoSSWBC corrected for nucl RBC Auto (Bld) [#/Vol]5.4 E9/LNormal4.0 - 11.0 E9/LFTMC HemeAutoSS CHEMISTRYOrdered By: SYSTEM SYSTEM on 09-46-2359Cvhzi gap [Moles/Vol]8 mmol/L Normal6 - 16 mEq/LFTMC RemisolCalcium [Mass/Vol]8.9 mg/dLNormal8.9 - 11.1 mg/dL [facility] RemisolChloride [Moles/Vol]100 mmol/KWzd287 - 111 mmol/LFTMC RemisolCO2 [Moles/Vol]31 mmol/WTknwbv03 - 31 mmol/LFTMC RemisolCreatinine [Mass/Vol]0.8 mg/dLNormal0.5 - 1.3 mg/dLFTMC RemisolGFR/1.73 sq M.predicted among blacks MDRD (S/P/Bld) [Vol rate/Area]mL/min/1.73 v1Mllpmo>=59mL/min/1.73 m2FT Chem S GFR/1.73 sq M.predicted among non-blacks MDRD (S/P/Bld) [Vol rate/Area] mL/min/1.73 d3Imauxv>=59mL/min/1.73 m2FT Chem SGlucose [Mass/Vol]94 mg/dL Nkjvwb98 - 199 mg/dLFTMC RemisolSodium [Moles/Vol]136 mmol/JRhdqow682 - 145 mmol/LFTMC RemisolUrea nitrogen [Mass/Vol]16 mg/dLNormal5 - 21 mg/dLFTMC Remisol Urea nitrogen/Creatinine [Mass ratio]20 mg/fwBawoii56 - 20FT[facility] RemisolCHEMISTRY Ordered By: Jesse Li on 82-31-4065Qturyqllj [Moles/Vol]3.2 mmol/LLow3.5 - 5.3 mmol/LFTMC RemisolCHEMISTRYOrdered By: SYSTEM SYSTEM on 12-42-0090Xbuawhir I.cardiac [Mass/Vol]7.00 pg/mLLow10.10 - 27.10 pg/mLFTMC RemisolTroponin I.cardiac [Mass/Vol]6.50 pg/mLLow10.10 - 27.10 pg/mLFTMC RemisolTroponin I.cardiac [Mass/Vol]6.20 pg/mLLow10.10 - 27.10 pg/mLFTMC RemisolGFR/1.73 sq M.predicted among blacks MDRD (S/P/Bld) [Vol rate/Area]52 mL/min/1.73 m2Low >=59mL/min/1.73 m2[facility] Chem SGFR/1.73 sq M.predicted among non-blacks MDRD (S/P/Bld) [Vol rate/Area]43 mL/min/1.73 m2Low>=59mL/min/1.73 m2[facility] Chem S CHEMISTRYOrdered By: Hebert Villanueva on 95-11-9201Gdlno gap [Moles/Vol]10 mmol/LNormal6 - 16 mEq/LFTMC RemisolCalcium [Mass/Vol]9.1 mg/dLNormal8.9 - 11.1 mg/dLFTMC RemisolChloride [Moles/Vol]100 mmol/RBdx680 - 111 mmol/LFTMC Remisol CO2 [Moles/Vol]30 mmol/HExejsm38 - 31 mmol/LFTMC RemisolCreatinine [Mass/Vol]1.2 mg/dLNormal0.5 - 1.3 mg/dLFTMC RemisolGlucose [Mass/Vol]86 mg/nWFgtpow68 - 199 mg/dLFTMC RemisolPotassium [Moles/Vol]4.0 mmol/LNormal3.5 - 5.3 mmol/LFTMC RemisolSodium [Moles/Vol]136 mmol/ZMeujus048 - 145 mmol/LFTMC RemisolUrea nitrogen [Mass/Vol]19 mg/dLNormal5 - 21 mg/dLFTMC RemisolUrea nitrogen/Creatinine [Mass ratio]16 mg/pyTsedcy81 - 20FT[facility] RemisolCHEMISTRY Ordered By: Aurea Wick on 39-99-5878Xbfthfrgvzk peptide B (Bld) [Mass/Vol]131 pg/mLHigh5 - 80 pg/mLFT HemeManSSCOAGULATIONOrdered By: Hebert Begum on 89-84-3254sBDY Coag (PPP) [Time]35.3 sZlobvi23.1 - 36.5 second(s)[facility] Auto Coag INR Coag (PPP) [Relative time]1.0 {INR}Invalid Interpretation CodeFTMC Auto Coag PT Coag (PPP) [Time]11.0 sNormal9.4 - 12.5 second(s)[facility] Auto CoagHEMATOLOGY Ordered By: SYSTEM SYSTEM on 87-27-5835Ongpthpoz/100 WBC (Bld)0.9 %Normal0.0 - 2.0 %[facility] HemeAutoSSBasophils/Leukocytes Auto (Bld) [Pure # fraction]0.0 E9/L Normal0.0 - 0.2 E9/LFTMC HemeAutoSSEosinophils/100 WBC (Bld)2.3 %Normal0.0 - 8.0 %[facility] HemeAutoSSEosinophils/Leukocytes Auto (Bld) [Pure # fraction]0.1 E9/L Normal0.0 - 0.5 E9/LFTMC HemeAutoSSLymphocytes/100 WBC (Bld)14.2 %Bkvkyr10.0 - 50.0 %[facility] HemeAutoSSLymphocytes/Leukocytes Auto (Bld) [Pure # fraction]0.7 E9/L Low1.0 - 4.0 E9/LFTMC HemeAutoSSMonocytes/100 WBC (Bld)9.1 %Normal4.0 - 14.0 % [facility] HemeAutoSSMonocytes/Leukocytes Auto (Bld) [Pure # fraction]0.5 E9/LNormal 0.2 - 1.0 E9/LFTMC HemeAutoSSNeutrophils/100 WBC (Bld)73.5 %Xfvexb57.0 - 75.0 % [facility] HemeAutoSSNeutrophils/Leukocytes Auto (Bld) [Pure # fraction]3.9 E9/LNormal 2.0 - 7.5 E9/LFTMC HemeAutoSSHEMATOLOGYOrdered By: Aurea Wick on 06-27-2022 Erythrocyte distribution width (RBC) [Ratio]15.8 %High10.9 - 14.2 %[facility] HemeAutoSSHematocrit (Bld) [Volume fraction]36.2 %Vfrjda02.0 - 46.0 %[facility] HemeAutoSSHemoglobin (Bld) [Mass/Vol]11.9 g/dLLow12.0 - 16.0 gm/dLFTMC HemeAutoSSMCH (RBC) [Entitic mass]29.0 feJfqfrf38.0 - 34.0 pgFTMC HemeAutoSSMCHC (RBC) [Mass/Vol]32.7 g/oUOlemzj64.4 - 36.0 gm/dLFTMC HemeAutoSSMCV (RBC) [Entitic vol]88.6 oKZlpkzz76.0 - 100.0 fLFTMC HemeAutoSSPlatelet mean volume (Bld) [Entitic vol]7.5 fLNormal6.4 - 10.8 fLFTMC HemeAutoSSPlatelets (Bld) [#/Vol]201.0 E9/XGqzwgq446.0 - 500.0 E9/LFTMC HemeAutoSSRBC (Bld) [#/Vol]4.1 E12/LLow4.3 - 5.9 E12/LFT[facility] HemeAutoSSWBC corrected for nucl RBC Auto (Bld) [#/Vol]5.3 E9/LNormal4.0 - 11.0 E9/LFT[facility] HemeAutoSSCHEMISTRYOrdered By: SYSTEM SYSTEM on 646001-tbcxfqatcyydfq D3 [Mass/Vol]41.9 ng/nGKxyvzy21.0 - 100.0 ng/mLFTMC RemisolAlbumin [Mass/Vol]3.6 g/dLNormal3.3 - 5.0 gm/dLFTMC Remisol Albumin/Globulin [Mass ratio]1.2 {ratio}Normal1.1 - 2.2[facility] RemisolALP [Catalytic activity/Vol]52 [iU]/sGhsgdl86 - 98 Int._Unit/LFTMC RemisolALT No additional P-5'-P [Catalytic activity/Vol]19 [iU]/dNormal6 - 46 Int._Unit/LFTMC RemisolAnion gap [Moles/Vol]11 mmol/LNormal6 - 16 mEq/L[facility] RemisolAST [Catalytic activity/Vol]30 [iU]/dNormal5 - 43 Int._Unit/LFT[facility] RemisolBilirubin [Mass/Vol]0.7 mg/dLNormal0.0 - 1.1 mg/dLFTMC RemisolCalcium [Mass/Vol]9.1 mg/dL Normal8.9 - 11.1 mg/dLFTMC RemisolChloride [Moles/Vol]99 mmol/TPlx640 - 111 mmol/LFT[facility] RemisolCO2 [Moles/Vol]30 mmol/AZvhcmv64 - 31 mmol/LFT[facility] Remisol Cobalamin (Vitamin B12) [Mass/Vol]618 pg/fLCxvcki60 - 1500 pg/mLFTMC Remisol Creatinine [Mass/Vol]0.9 mg/dLNormal0.5 - 1.3 mg/dLFTMC RemisolGFR/1.73 sq M.predicted among blacks MDRD (S/P/Bld) [Vol rate/Area]mL/min/1.73 u7Uzebuv >=59mL/min/1.73 m2[facility] Chem SGFR/1.73 sq M.predicted among non-blacks MDRD (S/P/Bld) [Vol rate/Area]60 mL/min/1.73 k9Acsyvl>=59mL/min/1.73 m2FT Chem S Globulin (S) [Mass/Vol]2.9 g/dLNormal1.4 - 4.0 gm/dLFTMC RemisolGlucose [Mass/Vol]85 mg/cWMbjbcu60 - 199 mg/dLFTMC RemisolIron [Mass/Vol]105 ug/dLNormal 35 - 153 mcg/dLFTMC RemisolIron binding capacity [Mass/Vol]331 ug/aLCsmwfv621 - 400 mcg/dLFTMC RemisolPotassium [Moles/Vol]4.2 mmol/LNormal3.5 - 5.3 mmol/LFT[facility] RemisolProtein [Mass/Vol]6.5 g/dLNormal6.0 - 7.8 gm/dLFT[facility] RemisolSodium [Moles/Vol]136 mmol/TAoivqe981 - 145 mmol/LFTMC RemisolTransferrin [Mass/Vol]236 mg/aSYvaygc422 - 370 mg/dLFTMC RemisolTSH Qn2.01 m[IU]/LNormal0.34 - 5.60 mcIU/mLFTMC RemisolUrea nitrogen [Mass/Vol]15 mg/dLNormal5 - 21 mg/dLFTMC RemisolUrea nitrogen/Creatinine [Mass ratio]17 mg/tiVzvkxr37 - 20[facility] Remisol COAGULATIONOrdered By: Hebert Villanueva on 64-43-4200WTE Coag (PPP) [Relative time]1.0 {INR}Invalid Interpretation CodeFTMC Auto CoagPT Coag (PPP) [Time]11.4 sNormal9.4 - 12.5 second(s)[facility] Auto CoagHEMATOLOGYOrdered By: SYSTEM SYSTEM on 45-86-3591Iourftqmw/100 WBC (Bld)0.8 %Normal0.0 - 2.0 %[facility] HemeAutoSS Basophils/Leukocytes Auto (Bld) [Pure # fraction]0.0 E9/LNormal0.0 - 0.2 E9/L [facility] HemeAutoSSEosinophils/100 WBC (Bld)2.7 %Normal0.0 - 8.0 %[facility] HemeAutoSS Eosinophils/Leukocytes Auto (Bld) [Pure # fraction]0.1 E9/LNormal0.0 - 0.5 E9/L [facility] HemeAutoSSLymphocytes/100 WBC (Bld)17.3 %Ojozcw09.0 - 50.0 %[facility] HemeAutoSS Lymphocytes/Leukocytes Auto (Bld) [Pure # fraction]0.9 E9/LLow1.0 - 4.0 E9/LFTMC HemeAutoSSMonocytes/100 WBC (Bld)9.7 %Normal4.0 - 14.0 %[facility] HemeAutoSS Monocytes/Leukocytes Auto (Bld) [Pure # fraction]0.5 E9/LNormal0.2 - 1.0 E9/L [facility] HemeAutoSSNeutrophils/100 WBC (Bld)69.5 %Nkgucj72.0 - 75.0 %[facility] HemeAutoSS Neutrophils/Leukocytes Auto (Bld) [Pure # fraction]3.5 E9/LNormal2.0 - 7.5 E9/L [facility] HemeAutoSSHEMATOLOGYOrdered By: Delores Hyman on 03-49-3280Vnafkirlbbk distribution width (RBC) [Ratio]15.9 %High10.9 - 14.2 %[facility] HemeAutoSSHematocrit (Bld) [Volume fraction]34.6 %Mvopge42.0 - 46.0 %[facility] HemeAutoSSHemoglobin (Bld) [Mass/Vol]11.5 g/dLLow12.0 - 16.0 gm/dLFT HemeAutoSSMCH (RBC) [Entitic mass] 29.6 zrNseppb61.0 - 34.0 pgFTM HemeAutoSSMCHC (RBC) [Mass/Vol]33.3 g/dLNormal 31.4 - 36.0 gm/dLFT HemeAutoSSMCV (RBC) [Entitic vol]88.9 xYAijwzf36.0 - 100.0 fLPARKSIDE [facility] [place] HemeAutoSSPlatelet mean volume (Bld) [Entitic vol]7.7 fLNormal6.4 - 10.8 fLPARKSIDE PSYCHIATRIC [facility] [place] HemeAutoSSPlatelets (Bld) [#/Vol]217.0 E9/DVwpaag440.0 - 500.0 E9/LFMUSCOGEE HemeAutoSSRBC (Bld) [#/Vol]3.9 E12/LLow4.3 - 5.9 E12/LFMUSCOGEE HemeAutoSSWBC corrected for nucl RBC Auto (Bld) [#/Vol]5.0 E9/LNormal4.0 - 11.0 E9/LFMUSCOGEE HemeAutoSSXR FOOT GENERAL 3V AP/LAT/OBL RIGHTon 02-54-0757Xsbdalejc ClinicXR Foot - left AP and Lateral and obliqueon 05-19-2022* * *Final Report* * * DATE OF EXAM: May 19 2022 2:59PM LZX 5336 - XR FOOT 3V AP/LAT/OBL LT / PROCEDURE REASON: Pain * * * * Physician Interpretation * * * * HISTORY: Pain TECHNOLOGIST PROVIDED HISTORY (if applicable): Left foot pain TECHNIQUE: XR FOOT 3V AP/LAT/OBL LT RESULT: LEFT foot 3 views compared with 10/15/2014. Progressive osteopenia. No focal soft tissue swelling. Postoperative changes from subtalar and talonavicular arthrodesis with 3 screws similar to the prior. No signs of hardware loosening or failure. Mature bony fusions are confirmed and similar to the prior. Ossification is seen posteriorly at the ankle likely a joint body or bodies in the posterior recess, not significantly changed. Degenerative changes are present at the naviculocuneiform and calcaneocuboid joints similar to the prior. Mild degenerative changes at the tarsometatarsal joints without Lisfranc malalignment, also not significantly changed. Mild degenerative changes are also present at several interphalangeal joints. Small bunionette and calcaneal spurs unchanged. Mature periosteal new bone along the second through fourth metatarsals consistent with chronic stress reactions or stasis and similar to the prior. DIVISION OF RADIOLOGYProvider, [facility] [place] - 05/19/2022 * * *Final Report* * * DATE OF EXAM: May 19 2022 2:59PM LZX 5336 - XR FOOT 3V AP/LAT/OBL LT / PROCEDURE REASON: Pain * * * * Physician Interpretation * * * * HISTORY: Pain TECHNOLOGIST PROVIDED HISTORY (if applicable): Left foot pain TECHNIQUE: XR FOOT 3V AP/LAT/OBL LT RESULT: LEFT foot 3 views compared with 10/15/2014. Progressive osteopenia. No focal soft tissue swelling. Postoperative changes from subtalar and talonavicular arthrodesis with 3 screws similar to the prior. No signs of hardware loosening or failure. Mature bony fusions are confirmed and similar to the prior. Ossification is seen posteriorly at the ankle likely a joint body or bodies in the posterior recess, not significantly changed. Degenerative changes are present at the naviculocuneiform and calcaneocuboid joints similar to the prior. Mild degenerative changes at the tarsometatarsal joints without Lisfranc malalignment, also not significantly changed. Mild degenerative changes are also present at several interphalangeal joints. Small bunionette and calcaneal spurs unchanged. Mature periosteal new bone along the second through fourth metatarsals consistent with chronic stress reactions or stasis and similar to the prior. IMPRESSION IMPRESSION: PROGRESSIVE OSTEOPENIA OTHERWISE NO SIGNIFICANT CHANGE IN POSTOPERATIVE AND DEGENERATIVE FINDINGS. Shingle Carrier: PSCB Transcribe Date/Time: May 19 2022 4:34P Dictated by : LONNIE DENT MD This examination was interpreted and the report reviewed and electronically signed by: LONNIE DENT MD on May 19 2022 4:37PM [facility] HospitalRad[facility] observation (narrative)[facility] Foot - left AP and Lateral and obliqueOrdered By: [facility] Provider on 67-37-4219Vdtkxxiub ClinicXR Foot - right AP and Lateral and obliqueon 81-38-8688MFGUENMMKK: No acute osseous abnormality. Left hindfoot arthrodesis. Osteoarthritis, most prominent in the mid feet bilaterally Right pes planus and hindfoot valgus. Shingle Carrier: ZENIA Transcribe Date/Time: May 19 2022 4:23P Dictated by : MARCIAL LOMBARDI MD This examination was interpreted and the report reviewed and electronically signed by: MARCIAL LOMBARDI MD on May 19 2022 4:26PM [facility] DIVISION OF RADIOLOGY* * *Final Report* * * DATE OF EXAM: May 19 2022 2:08PM LZX 5337 - XR FOOT 3V AP/LAT/OBL RT / PROCEDURE REASON: multiple diagnoses * * * * Physician Interpretation * * * * EXAMINATION / TECHNIQUE: XR FOOT 3V AP/LAT/OBL RT HISTORY: rt foot pain, unable to balance, rt toe injury Contusion of right foot, initial encounter Enthesopathy of foot Tendonitis, Achilles, left Calcaneal spur of left foot COMPARISON: RESULT: In the left foot, there has been prior subtalar and talonavicular surgical arthrodesis with several transarticular screws and osseous fusion. Hardware appears intact. There are degenerative changes throughout the mid feet bilaterally which are moderate to severe and most prominent at the right calcaneocuboid joint and left navicular cuneiform joints, with joint space narrowing, subchondral degenerative change, and osteophytes. Forefoot degenerative changes are relatively mild. Although the right foot images are nonweightbearing, there is clearly a degree of pes planus and hindfoot valgus. There are likely subtalar degenerative changes which are incompletely assessed. There is no acute fracture identified. No erosions or aggressive periostitis. DIVISION OF RADIOLOGYProvider, [facility] [place] - 05/19/2022 * * *Final Report* * * DATE OF EXAM: May 19 2022 2:08PM LZX 5337 - XR FOOT 3V AP/LAT/OBL RT / PROCEDURE REASON: multiple diagnoses * * * * Physician Interpretation * * * * EXAMINATION / TECHNIQUE: XR FOOT 3V AP/LAT/OBL RT HISTORY: rt foot pain, unable to balance, rt toe injury Contusion of right foot, initial encounter Enthesopathy of foot Tendonitis, Achilles, left Calcaneal spur of left foot COMPARISON: RESULT: In the left foot, there has been prior subtalar and talonavicular surgical arthrodesis with several transarticular screws and osseous fusion. Hardware appears intact. There are degenerative changes throughout the mid feet bilaterally which are moderate to severe and most prominent at the right calcaneocuboid joint and left navicular cuneiform joints, with joint space narrowing, subchondral degenerative change, and osteophytes. Forefoot degenerative changes are relatively mild. Although the right foot images are nonweightbearing, there is clearly a degree of pes planus and hindfoot valgus. There are likely subtalar degenerative changes which are incompletely assessed. There is no acute fracture identified. No erosions or aggressive periostitis. IMPRESSION IMPRESSION: No acute osseous abnormality. Left hindfoot arthrodesis. Osteoarthritis, most prominent in the mid feet bilaterally Right pes planus and hindfoot valgus. Shingle Carrier: ZENIA Transcribe Date/Time: May 19 2022 4:23P Dictated by : MARCIAL LOMBARDI MD This examination was interpreted and the report reviewed and electronically signed by: MARCIAL LOMBARDI MD on May 19 2022 4:26PM EST [facility] HospitalRad[facility] observation (narrative)[facility] HospitalXR Foot - right AP and Lateral and obliqueOrdered By: [facility] Provider on 08-23-1046Xgejlefqn ClinicCHEMISTRYOrdered By: SYSTEM SYSTEM on [id number]-zrbiqpdiqxgqob D3 [Mass/Vol]42.1 ng/wGYhewmr43.0 - 100.0 ng/mLFTMC RemisolAlbumin [Mass/Vol]3.4 g/dLNormal3.3 - 5.0 gm/dLFTMC RemisolAlbumin/Globulin [Mass ratio]0.9 {ratio}Low 1.1 - 2.2FT[facility] RemisolALP [Catalytic activity/Vol]59 [iU]/hSiiimv44 - 98 Int._Unit/LFTMC RemisolALT No additional P-5'-P [Catalytic activity/Vol]17 [iU]/dNormal6 - 46 Int._Unit/LFTMC RemisolAnion gap [Moles/Vol]12 mmol/LNormal6 - 16 mEq/LFT[facility] RemisolAST [Catalytic activity/Vol]23 [iU]/dNormal5 - 43 Int._Unit/LFT[facility] RemisolBilirubin [Mass/Vol]0.6 mg/dLNormal0.0 - 1.1 mg/dLFTMC RemisolCalcium [Mass/Vol]8.8 mg/dLLow8.9 - 11.1 mg/dLFTMC RemisolChloride [Moles/Vol]96 mmol/CGcz252 - 111 mmol/LFTMC RemisolCO2 [Moles/Vol]26 mmol/L Lkcxpf31 - 31 mmol/LFTMC RemisolCobalamin (Vitamin B12) [Mass/Vol]708 pg/mL Mlddwy23 - 1500 pg/mLFTMC RemisolCreatinine [Mass/Vol]0.9 mg/dLNormal0.5 - 1.3 mg/dLFTMC RemisolGFR/1.73 sq M.predicted among blacks MDRD (S/P/Bld) [Vol rate/Area]mL/min/1.73 m1Onsqqx>=59mL/min/1.73 m2[facility] Chem SGFR/1.73 sq M.predicted among non-blacks MDRD (S/P/Bld) [Vol rate/Area]60 mL/min/1.73 m2 Normal>=59mL/min/1.73 m2[facility] Chem SGlobulin (S) [Mass/Vol]3.7 g/dLNormal1.4 - 4.0 gm/dLFTMC RemisolGlucose [Mass/Vol]102 mg/hMJisurk59 - 199 mg/dLFTMC Remisol Iron [Mass/Vol]29 ug/dLLow35 - 153 mcg/dLFTMC RemisolIron binding capacity [Mass/Vol]264 ug/yWNhvwwp943 - 400 mcg/dLFTMC RemisolPotassium [Moles/Vol]4.4 mmol/LNormal3.5 - 5.3 mmol/LFTMC RemisolProtein [Mass/Vol]7.1 g/dLNormal6.0 - 7.8 gm/dLFTMC RemisolSodium [Moles/Vol]130 mmol/BRba548 - 145 mmol/LFTMC Remisol Transferrin [Mass/Vol]189 mg/lHHya147 - 370 mg/dLFTMC RemisolTSH Qn1.57 m[IU]/L Normal0.34 - 5.60 mcIU/mLFT[facility] RemisolUrea nitrogen [Mass/Vol]16 mg/dLNormal5 - 21 mg/dLFT[facility] RemisolUrea nitrogen/Creatinine [Mass ratio]18 mg/biOsfypx53 - 20 [facility] RemisolHEMATOLOGYOrdered By: [employer] on [id number]/100 WBC (Bld)0.6 %Normal0.0 - 2.0 %[facility] HemeAutoSSBasophils/Leukocytes Auto (Bld) [Pure # fraction]0.1 E9/LNormal0.0 - 0.2 E9/LFTMC HemeAutoSSEosinophils/100 WBC (Bld) 1.5 %Normal0.0 - 8.0 %[facility] HemeAutoSSEosinophils/Leukocytes Auto (Bld) [Pure # fraction]0.1 E9/LNormal0.0 - 0.5 E9/LFTMC HemeAutoSSLymphocytes/100 WBC (Bld)5.4 %Low14.0 - 50.0 %[facility] HemeAutoSSLymphocytes/Leukocytes Auto (Bld) [Pure # fraction]0.5 E9/LLow1.0 - 4.0 E9/LFTMC HemeAutoSSMonocytes/100 WBC (Bld)4.4 % Normal4.0 - 14.0 %[facility] HemeAutoSSMonocytes/Leukocytes Auto (Bld) [Pure # fraction]0.4 E9/LNormal0.2 - 1.0 E9/LFTMC HemeAutoSSNeutrophils/100 WBC (Bld) 88.1 %High36.0 - 75.0 %[facility] HemeAutoSSNeutrophils/Leukocytes Auto (Bld) [Pure # fraction]8.4 E9/LHigh2.0 - 7.5 E9/LFTMC HemeAutoSSHEMATOLOGYOrdered By: Aurea Wick on [id number] distribution width (RBC) [Ratio]15.2 %High10.9 - 14.2 %[facility] HemeAutoSSHematocrit (Bld) [Volume fraction]31.4 %Low34.0 - 46.0 % [facility] HemeAutoSSHemoglobin (Bld) [Mass/Vol]10.3 g/dLLow12.0 - 16.0 gm/dLFTMC HemeAutoSSMCH (RBC) [Entitic mass]28.8 uhOvtopf51.0 - 34.0 pgFTMC HemeAutoSSMCHC (RBC) [Mass/Vol]32.7 g/yDHqtccm31.4 - 36.0 gm/dLFTMC HemeAutoSSMCV (RBC) [Entitic vol]88.1 lXBojnxr17.0 - 100.0 fLFTMC HemeAutoSSPlatelet mean volume (Bld) [Entitic vol]6.9 fLNormal6.4 - 10.8 fLFTMC HemeAutoSSPlatelets (Bld) [#/Vol]323.0 E9/WEyfjes289.0 - 500.0 E9/LFTMC HemeAutoSSRBC (Bld) [#/Vol]3.6 E12/LLow4.3 - 5.9 E12/LFTMC HemeAutoSSWBC corrected for nucl RBC Auto (Bld) [#/Vol]9.5 E9/LNormal4.0 - 11.0 E9/LFTMC HemeAutoSSProgress Noteson 02-02-2022 Patient Centered Care Specialist Authentication Interface Message TextEMERGENCY TRIAGE, TREAT AND TRANSPORT (ET3) DOCUMENTATION OF TELEHEALTH VISIT Date / Time: 02/02/2022 / 0445 Name: Carly Navas : 1940 SSN: (Not on file) EMS Agency: [facility] [x] Verbal consent obtained [] [...] Disposition Reported: Same ET3 Encounter Completed by: Maribell Baker [facility], [facility] Tobacco Screening.on [id number] depression screening assessmentSouth County Hospital [employer] DO Work Phone: Fall risk assessmenta) No falls within the last year [facility] HospitalChicago [employer] DO Work Phone: Tobacco use status CPHSb) [facility] [employer] [place] [address] DO Work Phone: CHEMISTRYOrdered By: SYSTEM SYSTEM on 62-55-9860Zpchl gap [Moles/Vol]10 mmol/LNormal6 - 16 mEq/LFTMC RemisolCalcium [Mass/Vol]9.5 mg/dLNormal8.9 - 11.1 mg/dLFTMC RemisolChloride [Moles/Vol]105 mmol/RSaheeb372 - 111 mmol/LFTMC RemisolCO2 [Moles/Vol]26 mmol/GLznatj34 - 31 mmol/LFTMC Remisol Creatinine [Mass/Vol]1.1 mg/dLNormal0.5 - 1.3 mg/dLFTMC RemisolGFR/1.73 sq M.predicted among blacks MDRD (S/P/Bld) [Vol rate/Area]58 mL/min/1.73 m2Low >=59mL/min/1.73 m2[facility] Chem SGFR/1.73 sq M.predicted among non-blacks MDRD (S/P/Bld) [Vol rate/Area]48 mL/min/1.73 m2Low>=59mL/min/1.73 m2[facility] Chem S Glucose [Mass/Vol]74 mg/fCVyjbez40 - 199 mg/dLFT RemisolPotassium [Moles/Vol] 4.0 mmol/LNormal3.5 - 5.3 mmol/LFTMC RemisolSodium [Moles/Vol]137 mmol/LNormal 135 - 145 mmol/LFTMC RemisolUrea nitrogen [Mass/Vol]23 mg/dLHigh5 - 21 mg/dLFTMC RemisolUrea nitrogen/Creatinine [Mass ratio]21 mg/ggMohz05 - 20FT Remisol CHEMISTRYOrdered By: SYSTEM SYSTEM on 93-81-9118Ghxur gap [Moles/Vol]11 mmol/L Normal6 - 16 mEq/LFTMC RemisolCalcium [Mass/Vol]9.0 mg/dLNormal8.9 - 11.1 mg/dL FT RemisolChloride [Moles/Vol]104 mmol/LYrotff739 - 111 mmol/LFTMC RemisolCO2 [Moles/Vol]27 mmol/IIerdlk05 - 31 mmol/LFTMC RemisolCreatinine [Mass/Vol]1.5 mg/dLHigh0.5 - 1.3 mg/dLFT RemisolGFR/1.73 sq M.predicted among blacks MDRD (S/P/Bld) [Vol rate/Area]40 mL/min/1.73 m2Low>=59mL/min/1.73 m2FT Chem S GFR/1.73 sq M.predicted among non-blacks MDRD (S/P/Bld) [Vol rate/Area]33 mL/min/1.73 m2Low>=59mL/min/1.73 m2[facility] Chem SGlucose [Mass/Vol]80 mg/xZBuorrk75 - 199 mg/dLFT RemisolPotassium [Moles/Vol]3.9 mmol/LNormal3.5 - 5.3 mmol/L [facility] RemisolSodium [Moles/Vol]138 mmol/NOiujtf874 - 145 mmol/LFTMC RemisolUrea nitrogen [Mass/Vol]28 mg/dLHigh5 - 21 mg/dLFTMC RemisolUrea nitrogen/Creatinine [Mass ratio]19 mg/agFlzrdt77 - 20FT[facility] RemisolCHEMISTRYOrdered By: SYSTEM SYSTEM on 67-95-0900Wpqjnsxs I.cardiac [Mass/Vol]6.70 pg/mLLow10.10 - 27.10 pg/mLFTMC RemisolMagnesium [Mass/Vol]2.4 mg/dLNormal1.3 - 2.4 mg/dLFTMC RemisolPhosphate [Mass/Vol]4.4 mg/dLNormal1.9 - 4.6 mg/dLFTMC RemisolTroponin I.cardiac [Mass/Vol]6.20 pg/mLLow10.10 - 27.10 pg/mLFTMC RemisolAnion gap [Moles/Vol]11 mmol/LNormal6 - 16 mEq/LFTMC RemisolCalcium [Mass/Vol]9.4 mg/dLNormal8.9 - 11.1 mg/dLFTMC RemisolChloride [Moles/Vol]104 mmol/EHkwfxw774 - 111 mmol/LFTMC RemisolCO2 [Moles/Vol]27 mmol/ZDkftsq69 - 31 mmol/LFTMC RemisolCreatinine [Mass/Vol]1.7 mg/dLHigh0.5 - 1.3 mg/dLFTMC RemisolGFR/1.73 sq M.predicted among blacks MDRD (S/P/Bld) [Vol rate/Area]35 mL/min/1.73 m2Low>=59mL/min/1.73 m2FT Chem SGFR/1.73 sq M.predicted among non-blacks MDRD (S/P/Bld) [Vol rate/Area]29 mL/min/1.73 m2Low>=59mL/min/1.73 m2FT Chem SGlucose [Mass/Vol]89 mg/nTMsdcmo19 - 199 mg/dLFTMC RemisolPotassium [Moles/Vol]4.1 mmol/LNormal3.5 - 5.3 mmol/L [facility] RemisolSodium [Moles/Vol]138 mmol/GNscjom190 - 145 mmol/LFTMC Remisol Troponin I.cardiac [Mass/Vol]5.00 pg/mLLow10.10 - 27.10 pg/mLFT RemisolUrea nitrogen [Mass/Vol]33 mg/dLHigh5 - 21 mg/dLFT RemisolUrea nitrogen/Creatinine [Mass ratio]19 mg/jnIsajuv86 - 20FT RemisolCHEMISTRYOrdered By: Stephani Cruz on 49-45-2060Xqqemaxlsgg peptide B (Bld) [Mass/Vol]97 pg/mLHigh5 - 80 pg/mLFT HemeManSSCOAGULATIONOrdered By: Rocio Jean on 61-27-6414hTHG Coag (PPP) [Time]32.6 jEjcqrq56.1 - 36.5 second(s)FT Auto CoagFibrin D-dimer FEU (PPP) [Mass/Vol]1687 ng/mL FEUInvalid Interpretation Cqco814 - 500 ng/mL FEUFTMC Auto CoagComment on above:Result Comment: Results Called To Valerie Cruz/ED By BUCK And Read Back For Confirmation On 12/15/2021 13:29:10 EDT Results Verified By Repeat AnalysisINR Coag (PPP) [Relative time]0.9 {INR} Invalid Interpretation CodeFT Auto CoagPT Coag (PPP) [Time]10.3 sNormal9.4 - 12.5 second(s)FT[facility] Auto CoagHEMATOLOGYOrdered By: SYSTEM SYSTEM on 12-15-2021 Basophils/100 WBC (Bld)0.8 %Normal0.0 - 2.0 %[facility] HemeAutoSSBasophils/Leukocytes Auto (Bld) [Pure # fraction]0.1 E9/LNormal0.0 - 0.2 E9/LFTMC HemeAutoSS Eosinophils/100 WBC (Bld)2.6 %Normal0.0 - 8.0 %[facility] HemeAutoSS Eosinophils/Leukocytes Auto (Bld) [Pure # fraction]0.2 E9/LNormal0.0 - 0.5 E9/L [facility] HemeAutoSSLymphocytes/100 WBC (Bld)11.7 %Low14.0 - 50.0 %[facility] HemeAutoSS Lymphocytes/Leukocytes Auto (Bld) [Pure # fraction]0.8 E9/LLow1.0 - 4.0 E9/LFTMC HemeAutoSSMonocytes/100 WBC (Bld)7.5 %Normal4.0 - 14.0 %[facility] HemeAutoSS Monocytes/Leukocytes Auto (Bld) [Pure # fraction]0.5 E9/LNormal0.2 - 1.0 E9/L [facility] HemeAutoSSNeutrophils/100 WBC (Bld)77.4 %High36.0 - 75.0 %[facility] HemeAutoSS Neutrophils/Leukocytes Auto (Bld) [Pure # fraction]5.2 E9/LNormal2.0 - 7.5 E9/L [facility] HemeAutoSSHEMATOLOGYOrdered By: Hebert Begum on 86-76-3938Bkurcbcdvlb distribution width (RBC) [Ratio]15.5 %High10.9 - 14.2 %[facility] HemeAutoSSHematocrit (Bld) [Volume fraction]34.9 %Vgeevh01.0 - 46.0 %[facility] HemeAutoSSHemoglobin (Bld) [Mass/Vol]11.5 g/dLLow12.0 - 16.0 gm/dLFTMC HemeAutoSSMCH (RBC) [Entitic mass] 28.5 ttTuwels99.0 - 34.0 pgFTMC HemeAutoSSMCHC (RBC) [Mass/Vol]32.8 g/dLNormal 31.4 - 36.0 gm/dLFTMC HemeAutoSSMCV (RBC) [Entitic vol]86.8 qOOwvksl93.0 - 100.0 fLFTMC HemeAutoSSPlatelet mean volume (Bld) [Entitic vol]7.5 fLNormal6.4 - 10.8 fLFTMC HemeAutoSSPlatelets (Bld) [#/Vol]206.0 E9/WUpziqp492.0 - 500.0 E9/LFTMC HemeAutoSSRBC (Bld) [#/Vol]4.0 E12/LLow4.3 - 5.9 E12/LFTMC HemeAutoSSWBC corrected for nucl RBC Auto (Bld) [#/Vol]6.7 E9/LNormal4.0 - 11.0 E9/LFTMC HemeAutoSSURINALYSISOrdered By: Rocio Jean on 24-12-1316Enleocirw Ql (U) Negative (12/15/21 12:25 PM)NormalNegativePAR[facility] [place] UA Auto SSClarity (U)Clear (12/15/21 12:25 PM)NormalClearFMUSCOGEE UA Auto SSColor (U)Yellow (12/15/21 12:25 PM)NormalYellowPARKSIDE [facility]CH[facility] [place] UA Auto SSEpithelial cells.squamous LM.HPF (Urine sed) [#/Area]0-2 /HPFNormal0-2/HPFPARKSIDE PSYCHIATR[facility] [place] UA Auto SSGlucose Test strip (U) [Mass/Vol]Negative (12/15/21 12:25 PM)NormalNegativePARKSIDE [facility] [place] UA Auto SSHemoglobin Ql (U)Negative (12/15/21 12:25 PM)NormalNegativePARKSIDE [facility] [place] UA Auto SSKetones (U) [Mass/Vol]Negative (12/15/21 12:25 PM)NormalNegativePARKSIDE [facility] [place] UA Auto SSLithium.plasma/[place].RBC (Bld) [Mass ratio]0-3 /HPFNormal0-3/HPFPARKSIDE [facility] [place] UA Auto SSNitrite Ql (U)Negative (12/15/21 12:25 PM)NormalNegativePARKSIDE [facility] [place] UA Auto SSpH (U)7.0 *NA* (12/15/21 12:25 PM)Invalid Interpretation Code5.0 - 9.0[facility] UA Auto SSProtein (U) [Mass/Vol]Negative (12/15/21 12:25 PM)NormalNegativePARKSIDE [facility] [place] UA Auto SSSpecific gravity (U) [Rel density]1.010 *NA* (12/15/21 12:25 PM)Invalid Interpretation Code1.005 - 1.030[facility] UA Auto SSUA Spec DescClean Catch (12/15/21 12:25 PM)NormalPARKSIDE [facility] [place] UA Auto SSUrobilinogen Qn (U)0.1643481 {Lexie'U}/dLNormal0.0 - 1.0 EU/dLPARKSIDE [facility] [place] UA Auto SSWBC Auto Ql (U)Negative (12/15/21 12:25 PM)NormalNegativePARKSIDE [facility] UA Auto SSWBC LM.HPF (Urine sed) [#/Area]0- 5 /HPFNormal0-5/HPFPARKSIDE [facility] [place] UA Auto SSCHEMISTRYOrdered By: SYSTEM SYSTEM on 70-86-7627Ikxxu gap [Moles/Vol]13 mmol/LNormal6 - 16 mEq/LFTMC RemisolCalcium [Mass/Vol]9.0 mg/dLNormal8.9 - 11.1 mg/dLFTMC RemisolChloride [Moles/Vol]105 mmol/RDqcoha334 - 111 mmol/LFTMC RemisolCO2 [Moles/Vol]25 mmol/TBbxmyo67 - 31 mmol/LFTMC RemisolCreatinine [Mass/Vol]1.0 mg/dLNormal0.5 - 1.3 mg/dLFTMC RemisolGFR/1.73 sq M.predicted among blacks MDRD (S/P/Bld) [Vol rate/Area] mL/min/1.73 l7Qvbngo>=59mL/min/1.73 m2[facility] Chem SGFR/1.73 sq M.predicted among non-blacks MDRD (S/P/Bld) [Vol rate/Area]53 mL/min/1.73 m2Low>=59mL/min/1.73 m2 FT Chem SGlucose [Mass/Vol]91 mg/oOPbjymp62 - 199 mg/dLFTMC RemisolMagnesium [Mass/Vol]1.8 mg/dLNormal1.3 - 2.4 mg/dLFTMC RemisolPotassium [Moles/Vol]3.5 mmol/LNormal3.5 - 5.3 mmol/LFTMC RemisolSodium [Moles/Vol]139 mmol/QVefrze028 - 145 mmol/LFTMC RemisolTSH Qn3.00 m[IU]/LNormal0.34 - 5.60 mcIU/mLFTMC Remisol Urea nitrogen [Mass/Vol]17 mg/dLNormal5 - 21 mg/dLFTMC RemisolUrea nitrogen/Creatinine [Mass ratio]17 mg/dzEprvcd83 - 20[facility] RemisolTroponin I.cardiac [Mass/Vol]6.70 pg/mLLow10.10 - 27.10 pg/mLFTMC RemisolTroponin I.cardiac [Mass/Vol]6.30 pg/mLLow10.10 - 27.10 pg/mLFTMC RemisolCHEMISTRYOrdered By: Hebert Villanueva on 57-55-9912Sfillqgwzsl peptide B (Bld) [Mass/Vol]436 pg/mLHigh5 - 80 pg/mLFTMC HemeManSSHEMATOLOGYOrdered By: SYSTEM SYSTEM on 65-88-7414Yrzaargyc/100 WBC (Bld)0.6 %Normal0.0 - 2.0 %[facility] HemeAutoSS Basophils/Leukocytes Auto (Bld) [Pure # fraction]0.0 E9/LNormal0.0 - 0.2 E9/L [facility] HemeAutoSSEosinophils/100 WBC (Bld)1.6 %Normal0.0 - 8.0 %[facility] HemeAutoSS Eosinophils/Leukocytes Auto (Bld) [Pure # fraction]0.1 E9/LNormal0.0 - 0.5 E9/L [facility] HemeAutoSSLymphocytes/100 WBC (Bld)12.6 %Low14.0 - 50.0 %[facility] HemeAutoSS Lymphocytes/Leukocytes Auto (Bld) [Pure # fraction]0.9 E9/LLow1.0 - 4.0 E9/LFTMC HemeAutoSSMonocytes/100 WBC (Bld)6.4 %Normal4.0 - 14.0 %[facility] HemeAutoSS Monocytes/Leukocytes Auto (Bld) [Pure # fraction]0.4 E9/LNormal0.2 - 1.0 E9/L [facility] HemeAutoSSNeutrophils/100 WBC (Bld)78.8 %High36.0 - 75.0 %[facility] HemeAutoSS Neutrophils/Leukocytes Auto (Bld) [Pure # fraction]5.4 E9/LNormal2.0 - 7.5 E9/L [facility] HemeAutoSSHEMATOLOGYOrdered By: Hebert Villanueva on 39-09-6343Llujchkjnnf distribution width (RBC) [Ratio]15.6 %High10.9 - 14.2 %[facility] HemeAutoSSHematocrit (Bld) [Volume fraction]32.0 %Low34.0 - 46.0 %[facility] HemeAutoSSHemoglobin (Bld) [Mass/Vol]10.5 g/dLLow12.0 - 16.0 gm/dLFTMC HemeAutoSSMCH (RBC) [Entitic mass] 28.5 dpCmzwxo73.0 - 34.0 pgFTMC HemeAutoSSMCHC (RBC) [Mass/Vol]32.8 g/dLNormal 31.4 - 36.0 gm/dLFTMC HemeAutoSSMCV (RBC) [Entitic vol]86.8 yMXsashn35.0 - 100.0 fLFTMC HemeAutoSSPlatelet mean volume (Bld) [Entitic vol]7.6 fLNormal6.4 - 10.8 fLFTMC HemeAutoSSPlatelets (Bld) [#/Vol]208.0 E9/XQwkpko276.0 - 500.0 E9/LFTMC HemeAutoSSRBC (Bld) [#/Vol]3.7 E12/LLow4.3 - 5.9 E12/LFTMC HemeAutoSSWBC corrected for nucl RBC Auto (Bld) [#/Vol]6.8 E9/LNormal4.0 - 11.0 E9/LFC HemeAutoSSCHEMISTRYOrdered By: SYSTEM SYSTEM on 29-95-7585Iheqkydz I.cardiac [Mass/Vol]5.60 pg/mLLow10.10 - 27.10 pg/mLFTMC RemisolAlbumin [Mass/Vol]3.6 g/dL Normal3.3 - 5.0 gm/dLFTMC RemisolAlbumin/Globulin [Mass ratio]1.1 {ratio}Normal 1.1 - 2.2[facility] RemisolALP [Catalytic activity/Vol]56 [iU]/nHyajbq41 - 98 Int._Unit/LFTMC RemisolALT No additional P-5'-P [Catalytic activity/Vol]15 [iU]/dNormal6 - 46 Int._Unit/LFTMC RemisolAnion gap [Moles/Vol]11 mmol/LNormal6 - 16 mEq/LFT[facility] RemisolAST [Catalytic activity/Vol]20 [iU]/dNormal5 - 43 Int._Unit/LFTMC RemisolBilirubin [Mass/Vol]0.4 mg/dLNormal0.0 - 1.1 mg/dLFTMC RemisolBilirubin.direct [Mass/Vol]mg/dLNormal0.1 - 0.4 mg/dLFTMC Remisol Bilirubin.indirect [Mass or moles/Vol]Unable to Calculate mg/dLInvalid Interpretation Code0.1 - 0.9 mg/dLFTMC RemisolCalcium [Mass/Vol]8.8 mg/dLLow8.9 - 11.1 mg/dLFTMC RemisolChloride [Moles/Vol]104 mmol/SZofkrp700 - 111 mmol/LFT[facility] RemisolCO2 [Moles/Vol]27 mmol/UMxxdtk12 - 31 mmol/LFTMC RemisolCreatinine [Mass/Vol]1.0 mg/dLNormal0.5 - 1.3 mg/dLFTMC RemisolGFR/1.73 sq M.predicted among blacks MDRD (S/P/Bld) [Vol rate/Area]mL/min/1.73 s5Dhjucf>=59mL/min/1.73 m2FT Chem SGFR/1.73 sq M.predicted among non-blacks MDRD (S/P/Bld) [Vol rate/Area]53 mL/min/1.73 m2Low>=59mL/min/1.73 m2FT Chem SGlobulin (S) [Mass/Vol]3.3 g/dLNormal1.4 - 4.0 gm/dLFTMC RemisolGlucose [Mass/Vol]91 mg/dL Lxdsnh95 - 199 mg/dLFTMC RemisolPotassium [Moles/Vol]3.6 mmol/LNormal3.5 - 5.3 mmol/LFTMC RemisolProtein [Mass/Vol]6.9 g/dLNormal6.0 - 7.8 gm/dLFT Remisol Sodium [Moles/Vol]138 mmol/RXuodlm923 - 145 mmol/LFTMC RemisolUrea nitrogen [Mass/Vol]20 mg/dLNormal5 - 21 mg/dLFTMC RemisolUrea nitrogen/Creatinine [Mass ratio]20 mg/fcYddpgp03 - 20[facility] RemisolCOAGULATIONOrdered By: Daina Mejias on 11-81-7779mMMN Coag (PPP) [Time]29.6 hKcjihx47.1 - 36.5 second(s)[facility] Auto CoagINR Coag (PPP) [Relative time]1.0 {INR}Invalid Interpretation CodeFTMC Auto CoagPT Coag (PPP) [Time]10.7 sNormal9.4 - 12.5 second(s)[facility] Auto CoagHEMATOLOGY Ordered By: SYSTEM SYSTEM on 77-85-0928Bbyxxatbz/100 WBC (Bld)0.4 %Normal0.0 - 2.0 %[facility] HemeAutoSSBasophils/Leukocytes Auto (Bld) [Pure # fraction]0.0 E9/L Normal0.0 - 0.2 E9/LFTMC HemeAutoSSEosinophils/100 WBC (Bld)2.4 %Normal0.0 - 8.0 %[facility] HemeAutoSSEosinophils/Leukocytes Auto (Bld) [Pure # fraction]0.1 E9/L Normal0.0 - 0.5 E9/LFTMC HemeAutoSSLymphocytes/100 WBC (Bld)14.9 %Ticoym53.0 - 50.0 %[facility] HemeAutoSSLymphocytes/Leukocytes Auto (Bld) [Pure # fraction]0.8 E9/L Low1.0 - 4.0 E9/LFTMC HemeAutoSSMonocytes/100 WBC (Bld)6.4 %Normal4.0 - 14.0 % [facility] HemeAutoSSMonocytes/Leukocytes Auto (Bld) [Pure # fraction]0.4 E9/LNormal 0.2 - 1.0 E9/LFTMC HemeAutoSSNeutrophils/100 WBC (Bld)75.9 %High36.0 - 75.0 % [facility] HemeAutoSSNeutrophils/Leukocytes Auto (Bld) [Pure # fraction]4.3 E9/LNormal 2.0 - 7.5 E9/LFTMC HemeAutoSSHEMATOLOGYOrdered By: Paul Mendez on 76-11-2357Vqjrcxyzuui distribution width (RBC) [Ratio]15.4 %High10.9 - 14.2 % [facility] HemeAutoSSHematocrit (Bld) [Volume fraction]37.0 %Updxlk55.0 - 46.0 %[facility] HemeAutoSSHemoglobin (Bld) [Mass/Vol]12.1 g/vLQpvjnc59.0 - 16.0 gm/dLFTMC HemeAutoSSMCH (RBC) [Entitic mass]28.6 baMawsjn30.0 - 34.0 pgFTMC HemeAutoSSMCHC (RBC) [Mass/Vol]32.7 g/mRPcnddo54.4 - 36.0 gm/dLFTMC HemeAutoSSMCV (RBC) [Entitic vol]87.4 mILrjttt50.0 - 100.0 fLFTMC HemeAutoSSPlatelet mean volume (Bld) [Entitic vol]7.4 fLNormal6.4 - 10.8 fLFTMC HemeAutoSSPlatelets (Bld) [#/Vol]182.0 E9/ZXforra924.0 - 500.0 E9/LFTMC HemeAutoSSRBC (Bld) [#/Vol]4.2 E12/LLow4.3 - 5.9 E12/LFTMC HemeAutoSSWBC corrected for nucl RBC Auto (Bld) [#/Vol]5.7 E9/LNormal4.0 - 11.0 E9/LFT[facility] HemeAutoSSCHEMISTRYOrdered By: SYSTEM SYSTEM on 56-91-4939Nlhnq gap [Moles/Vol]11 mmol/LNormal6 - 16 mEq/LFT[facility] Remisol Calcium [Mass/Vol]8.5 mg/dLLow8.9 - 11.1 mg/dLFTMC RemisolChloride [Moles/Vol] 102 mmol/VPtsrrr456 - 111 mmol/LFT[facility] RemisolCO2 [Moles/Vol]24 mmol/PJrrqxa53 - 31 mmol/LFTMC RemisolCreatinine [Mass/Vol]0.7 mg/dLNormal0.5 - 1.3 mg/dLFTMC RemisolGFR/1.73 sq M.predicted among blacks MDRD (S/P/Bld) [Vol rate/Area] mL/min/1.73 i9Wcpxxi>=59mL/min/1.73 m2[facility] Chem SGFR/1.73 sq M.predicted among non-blacks MDRD (S/P/Bld) [Vol rate/Area]mL/min/1.73 g3Mzdaia>=59mL/min/1.73 m2 [facility] Chem SGlucose [Mass/Vol]83 mg/cYYczdhq21 - 199 mg/dLFTMC RemisolPotassium [Moles/Vol]4.3 mmol/LNormal3.5 - 5.3 mmol/LFT[facility] RemisolSodium [Moles/Vol]133 mmol/BPky748 - 145 mmol/LFT[facility] RemisolUrea nitrogen [Mass/Vol]21 mg/dLNormal5 - 21 mg/dLFTMC RemisolUrea nitrogen/Creatinine [Mass ratio]30 mg/cfTkog51 - 20[facility] RemisolCHEMISTRYOrdered By: SYSTEM SYSTEM on 28-56-9095Suelp gap [Moles/Vol]13 mmol/LNormal6 - 16 mEq/LFT[facility] RemisolCalcium [Mass/Vol]8.4 mg/dLLow8.9 - 11.1 mg/dLFTMC RemisolChloride [Moles/Vol]98 mmol/ZSkx030 - 111 mmol/LFTMC RemisolCO2 [Moles/Vol]23 mmol/MBskrwn12 - 31 mmol/LFTMC RemisolCobalamin (Vitamin B12) [Mass/Vol]469 pg/wIIghyfc35 - 1500 pg/mLFTMC RemisolCreatinine [Mass/Vol]0.9 mg/dLNormal0.5 - 1.3 mg/dLFTMC RemisolFerritin [Mass/Vol]60 ng/xTYiwqny17 - 307 ng/mLFTMC RemisolFolate [Mass/Vol]ng/mLNormal>=6.7ng/mLFTMC RemisolGFR/1.73 sq M.predicted among blacks MDRD (S/P/Bld) [Vol rate/Area]mL/min/1.73 h1Etseup >=59mL/min/1.73 m2[facility] Chem SGFR/1.73 sq M.predicted among non-blacks MDRD (S/P/Bld) [Vol rate/Area]60 mL/min/1.73 i0Rkmuuq>=59mL/min/1.73 m2[facility] Chem S Glucose [Mass/Vol]82 mg/eMFsipwi76 - 199 mg/dLFTMC RemisolIron [Mass/Vol]37 ug/vNVaflub56 - 153 mcg/dLFTMC RemisolIron binding capacity [Mass/Vol]285 ug/dL Djpybr384 - 400 mcg/dLFTMC RemisolIron saturation [Mass fraction]13 %Low20 - 50 %[facility] RemisolMagnesium [Mass/Vol]1.8 mg/dLNormal1.3 - 2.4 mg/dLFT[facility] Remisol Potassium [Moles/Vol]3.5 mmol/LNormal3.5 - 5.3 mmol/LFTMC RemisolSodium [Moles/Vol]130 mmol/QPfk737 - 145 mmol/LFTMC RemisolTransferrin [Mass/Vol]204 mg/iHVjwvai192 - 370 mg/dLFTMC RemisolTroponin I.cardiac [Mass/Vol]7.90 pg/mLLow 10.10 - 27.10 pg/mLFTMC RemisolTSH Qn4.80 m[IU]/LNormal0.34 - 5.60 mcIU/mLFTMC RemisolUrea nitrogen [Mass/Vol]19 mg/dLNormal5 - 21 mg/dLFTMC RemisolUrea nitrogen/Creatinine [Mass ratio]21 mg/gtAlri80 - 20[facility] RemisolTroponin I.cardiac [Mass/Vol]6.80 pg/mLLow10.10 - 27.10 pg/mLFTMC RemisolRadiologyon 88-22-1154FI Carotid arteries - bilateralNormalMP-[facility] [facility] DO Work Phone: CHEMISTRYOrdered By: SYSTEM SYSTEM on 11-30-2021 Troponin I.cardiac [Mass/Vol]7.00 pg/mLLow10.10 - 27.10 pg/mLFTMC RemisolAnion gap [Moles/Vol]13 mmol/LNormal6 - 16 mEq/LFTMC RemisolCalcium [Mass/Vol]8.9 mg/dLNormal8.9 - 11.1 mg/dLFTMC RemisolChloride [Moles/Vol]97 mmol/VIuo532 - 111 mmol/LFTMC RemisolCO2 [Moles/Vol]24 mmol/GMzuugg36 - 31 mmol/LFTMC Remisol Creatinine [Mass/Vol]1.0 mg/dLNormal0.5 - 1.3 mg/dLFTMC RemisolGFR/1.73 sq M.predicted among blacks MDRD (S/P/Bld) [Vol rate/Area]mL/min/1.73 t3Zskize >=59mL/min/1.73 m2FT Chem SGFR/1.73 sq M.predicted among non-blacks MDRD (S/P/Bld) [Vol rate/Area]53 mL/min/1.73 m2Low>=59mL/min/1.73 m2FT Chem S Glucose [Mass/Vol]111 mg/zGGxmmyx10 - 199 mg/dLFTMC RemisolPotassium [Moles/Vol] 3.8 mmol/LNormal3.5 - 5.3 mmol/LFT[facility] RemisolSodium [Moles/Vol]130 mmol/UOzp887 - 145 mmol/LFTMC RemisolUrea nitrogen [Mass/Vol]22 mg/dLHigh5 - 21 mg/dLFTMC RemisolUrea nitrogen/Creatinine [Mass ratio]22 mg/opCfkt31 - 20[facility] Remisol HEMATOLOGYOrdered By: SYSTEM SYSTEM on 65-62-3688Dxeragfpo/100 WBC (Bld)0.4 % Normal0.0 - 2.0 %[facility] HemeAutoSSBasophils/Leukocytes Auto (Bld) [Pure # fraction]0.0 E9/LNormal0.0 - 0.2 E9/LFTMC HemeAutoSSEosinophils/100 WBC (Bld)2.8 %Normal0.0 - 8.0 %[facility] HemeAutoSSEosinophils/Leukocytes Auto (Bld) [Pure # fraction]0.2 E9/LNormal0.0 - 0.5 E9/LFTMC HemeAutoSSLymphocytes/100 WBC (Bld) 13.7 %Low14.0 - 50.0 %[facility] HemeAutoSSLymphocytes/Leukocytes Auto (Bld) [Pure # fraction]1.2 E9/LNormal1.0 - 4.0 E9/LFTMC HemeAutoSSMonocytes/100 WBC (Bld)7.8 % Normal4.0 - 14.0 %[facility] HemeAutoSSMonocytes/Leukocytes Auto (Bld) [Pure # fraction]0.7 E9/LNormal0.2 - 1.0 E9/LFTMC HemeAutoSSNeutrophils/100 WBC (Bld) 75.3 %High36.0 - 75.0 %[facility] HemeAutoSSNeutrophils/Leukocytes Auto (Bld) [Pure # fraction]6.5 E9/LNormal2.0 - 7.5 E9/LFT[facility] HemeAutoSSHEMATOLOGYOrdered By: Shreya Suazo on [id number] distribution width (RBC) [Ratio]15.2 % High10.9 - 14.2 %[facility] HemeAutoSSHematocrit (Bld) [Volume fraction]32.0 %Low34.0 - 46.0 %[facility] HemeAutoSSHemoglobin (Bld) [Mass/Vol]10.9 g/dLLow12.0 - 16.0 gm/dL [facility] HemeAutoSSMCH (RBC) [Entitic mass]29.2 ovMtejpo67.0 - 34.0 pgFTMC HemeAutoSSMCHC (RBC) [Mass/Vol]34.2 g/fDBwffyd17.4 - 36.0 gm/dLFTMC HemeAutoSS MCV (RBC) [Entitic vol]85.4 bRSfawat66.0 - 100.0 fLFTMC HemeAutoSSPlatelet mean volume (Bld) [Entitic vol]7.4 fLNormal6.4 - 10.8 fLFT[facility] HemeAutoSSPlatelets (Bld) [#/Vol]233.0 E9/KZqmjqb635.0 - 500.0 E9/L[facility] HemeAutoSSRBC (Bld) [#/Vol] 3.8 E12/LLow4.3 - 5.9 E12/L[facility] HemeAutoSSWBC corrected for nucl RBC Auto (Bld) [#/Vol]8.6 E9/LNormal4.0 - 11.0 E9/L[facility] HemeAutoSSCHEMISTRYOrdered By: SYSTEM SYSTEM on [id number] gap [Moles/Vol]8 mmol/LNormal6 - 16 mEq/L[facility] Remisol Calcium [Mass/Vol]8.8 mg/dLLow8.9 - 11.1 mg/dLFT[facility] RemisolChloride [Moles/Vol] 103 mmol/YTpgmdo891 - 111 mmol/L[facility] RemisolCO2 [Moles/Vol]28 mmol/OZelpwz16 - 31 mmol/L[facility] RemisolCreatinine [Mass/Vol]0.9 mg/dLNormal0.5 - 1.3 mg/dLFT[facility] RemisolGFR/1.73 sq M.predicted among blacks MDRD (S/P/Bld) [Vol rate/Area] mL/min/1.73 n4Hkdplg>=59mL/min/1.73 m2[facility] Chem SGFR/1.73 sq M.predicted among non-blacks MDRD (S/P/Bld) [Vol rate/Area]60 mL/min/1.73 a3Kkhwjr>=59mL/min/1.73 m2[facility] Chem SGlucose [Mass/Vol]93 mg/aCIppvli11 - 199 mg/dL[facility] RemisolMagnesium [Mass/Vol]1.9 mg/dLNormal1.3 - 2.4 mg/dL[facility] RemisolPotassium [Moles/Vol]3.8 mmol/LNormal3.5 - 5.3 mmol/L[facility] RemisolSodium [Moles/Vol]135 mmol/HBbmyrw764 - 145 mmol/LFT[facility] RemisolTroponin I.cardiac [Mass/Vol]100.60 pg/mLInvalid Interpretation Code10.10 - 27.10 pg/mLFT[facility] Chem SComment on above:Result Comment: Results Called To Edil/Ivone Sharma By And Read Back For Confirmation On 11/25/2021 07:52:00 EDT Results Verified By Repeat AnalysisUrea nitrogen [Mass/Vol]21 mg/dLNormal5 - 21 mg/dLFT[facility] RemisolUrea nitrogen/Creatinine [Mass ratio]23 mg/nxWlzm77 - 20[facility] RemisolHEMATOLOGYOrdered By: Artem Martínez on [id number] distribution width (RBC) [Ratio]15.2 %High10.9 - 14.2 %[facility] HemeAutoSSHematocrit (Bld) [Volume fraction]34.5 %Bqfruw57.0 - 46.0 %[facility] HemeAutoSSHemoglobin (Bld) [Mass/Vol]11.7 g/dLLow12.0 - 16.0 gm/dLFT[facility] HemeAutoSSMCH (RBC) [Entitic mass] 29.0 hgTifcfy99.0 - 34.0 pgFTMC HemeAutoSSMCHC (RBC) [Mass/Vol]33.9 g/dLNormal 31.4 - 36.0 gm/dLFT[facility] HemeAutoSSMCV (RBC) [Entitic vol]85.5 eLVlfrer55.0 - 100.0 fLFT[facility] HemeAutoSSPlatelet mean volume (Bld) [Entitic vol]7.1 fLNormal6.4 - 10.8 fLFT[facility] HemeAutoSSPlatelets (Bld) [#/Vol]193.0 E9/AUsapye112.0 - 500.0 E9/L[facility] HemeAutoSSRBC (Bld) [#/Vol]4.0 E12/LLow4.3 - 5.9 E12/L[facility] HemeAutoSSWBC corrected for nucl RBC Auto (Bld) [#/Vol]7.0 E9/LNormal4.0 - 11.0 E9/L[facility] HemeAutoSSCHEMISTRYOrdered By: SYSTEM SYSTEM on [id number] [Mass/Vol] 182 mg/xJMqviqf101 - 200 mg/dLFT[facility] RemisolCholesterol in HDL [Mass/Vol]42 mg/dL Invalid Interpretation CodeFT[facility] RemisolCholesterol in LDL [Mass/Vol]124 mg/dL Normal<=129mg/dLFT[facility] RemisolCholesterol in VLDL [Mass/Vol]14 mg/dLNormal7 - 40 mg/dLFT[facility] RemisolTriglyceride [Mass/Vol]70 mg/dLNormal<=149mg/dLFT[facility] Remisol CHEMISTRYOrdered By: SYSTEM SYSTEM on 17-12-9288Iuhtfokw I.cardiac [Mass/Vol] 83.00 pg/mLInvalid Interpretation Code10.10 - 27.10 pg/mLFT[facility] RemisolComment on above:Result Comment: Critical Result I_hsTnI:83.0 Called to SUDEEP FISHMAN at [facility] by DAINA RANDELL andread back for confirmation at 11/23/2021 18:44:29 Troponin I.cardiac [Mass/Vol]71.50 pg/mLInvalid Interpretation Code10.10 - 27.10 pg/mLFT[facility] RemisolComment on above:Result Comment: Critical Result I_hsTnI:71.5 Called to SHUBHAM NEWELL at ER by DAINA MEJIAS and read back for confirmation at 11/23/2021 15:24:01Anion gap [Moles/Vol]14 mmol/LNormal6 - 16 mEq/L[facility] RemisolCalcium [Mass/Vol]9.5 mg/dLNormal8.9 - 11.1 mg/dLFT[facility] RemisolChloride [Moles/Vol]96 mmol/TRpl753 - 111 mmol/L[facility] RemisolCO2 [Moles/Vol]27 mmol/L Mmewpe49 - 31 mmol/L[facility] RemisolCreatinine [Mass/Vol]1.1 mg/dLNormal0.5 - 1.3 mg/dLFT[facility] RemisolGFR/1.73 sq M.predicted among blacks MDRD (S/P/Bld) [Vol rate/Area]58 mL/min/1.73 m2Low>=59mL/min/1.73 m2[facility] Chem SGFR/1.73 sq M.predicted among non-blacks MDRD (S/P/Bld) [Vol rate/Area]48 mL/min/1.73 m2Low >=59mL/min/1.73 m2[facility] Chem SGlucose [Mass/Vol]89 mg/yEQoywwa27 - 199 mg/dLFT[facility] RemisolPotassium [Moles/Vol]3.6 mmol/LNormal3.5 - 5.3 mmol/L[facility] RemisolSodium [Moles/Vol]133 mmol/MWno237 - 145 mmol/LFT[facility] RemisolUrea nitrogen [Mass/Vol]23 mg/dLHigh5 - 21 mg/dLFT[facility] RemisolUrea nitrogen/Creatinine [Mass ratio]21 mg/mg High10 - 20[facility] RemisolCOAGULATIONOrdered By: Artem Martínez on 11-23-2021 aPTT Coag (PPP) [Time]35.8 aBrwrdq20.1 - 36.5 second(s)[facility] Auto CoagINR Coag (PPP) [Relative time]0.9 {INR}Invalid Interpretation CodeFTMC Auto CoagPT Coag (PPP) [Time]10.1 sNormal9.4 - 12.5 second(s)[facility] Auto CoagHEMATOLOGYOrdered By: [employer] Support SYSTEM on [id number]/100 WBC (Bld)0.9 %Normal0.0 - 2.0 %[facility] HemeAutoSSBasophils/Leukocytes Auto (Bld) [Pure # fraction]0.1 E9/LNormal0.0 - 0.2 E9/LFT[facility] HemeAutoSSEosinophils/100 WBC (Bld)3.0 %Normal0.0 - 8.0 %[facility] HemeAutoSSEosinophils/Leukocytes Auto (Bld) [Pure # fraction]0.2 E9/LNormal0.0 - 0.5 E9/LFT[facility] HemeAutoSSLymphocytes/100 WBC (Bld)17.5 %Prxqxg26.0 - 50.0 %[facility] HemeAutoSSLymphocytes/Leukocytes Auto (Bld) [Pure # fraction]1.0 E9/LNormal1.0 - 4.0 E9/LFTMC HemeAutoSSMonocytes/100 WBC (Bld)6.9 %Normal4.0 - 14.0 %[facility] HemeAutoSSMonocytes/Leukocytes Auto (Bld) [Pure # fraction]0.4 E9/LNormal0.2 - 1.0 E9/LFTMC HemeAutoSSNeutrophils/100 WBC (Bld)71.7 %Qezsvw16.0 - 75.0 %[facility] HemeAutoSSNeutrophils/Leukocytes Auto (Bld) [Pure # fraction]4.1 E9/LNormal2.0 - 7.5 E9/LFTMC HemeAutoSSHEMATOLOGYOrdered By: Aurea Castro on 11-23-2021 Erythrocyte distribution width (RBC) [Ratio]15.1 %High10.9 - 14.2 %[facility] HemeAutoSSHematocrit (Bld) [Volume fraction]34.6 %Ifeulf82.0 - 46.0 %[facility] HemeAutoSSHemoglobin (Bld) [Mass/Vol]11.8 g/dLLow12.0 - 16.0 gm/dLPARKSIDE [facility] [place] HemeAutoSSMCH (RBC) [Entitic mass]29.1 utAgznao86.0 - 34.0 [facility] HemeAutoSSMCHC (RBC) [Mass/Vol]34.0 g/cGThjine75.4 - 36.0 gm/dLPARKSIDE [facility]YCHIATR[facility] [place] HemeAutoSSMCV (RBC) [Entitic vol]85.7 jULxnxhm97.0 - 100.0 fLPARKSIDE PSYCHIATRIC [facility] [place] HemeAutoSSPlatelet mean volume (Bld) [Entitic vol]6.9 fLNormal6.4 - 10.8 fLPARKSIDE PSYCHIATRIC [facility] [place] HemeAutoSSPlatelets (Bld) [#/Vol]194.0 E9/SXmuxlu857.0 - 500.0 E9/LFMUSCOGEE HemeAutoSSRBC (Bld) [#/Vol]4.0 E12/LLow4.3 - 5.9 E12/[facility] HemeAutoSSWBC corrected for nucl RBC Auto (Bld) [#/Vol]5.7 E9/LNormal4.0 - 11.0 E9/[facility] HemeAutoSSAutomated basophil %on 31-32-8669Fwnclqweb/100 WBC (Bld)0.8 %[facility] CtrAutomated basophil counton 79-49-4502Rfudblslx (Bld) [#/Vol]0.1 10*3/uL0.0-0.2FMercy Hospital CtrAutomated blood lymphocyte count (number/volume)on 54-47-4241Sowkijgelmb (Bld) [#/Vol]1.2 10*3/uL1.00-4.8[facility] CtrAutomated blood lymphocyte count as percentage of total leukocyteson 10-52-9317Qsmlcgeqwqk/100 WBC (Bld)19.0 %[facility] CtrAutomated blood monocyte counton 53-04-5427Cobfruyuq (Bld) [#/Vol]0.5 10*3/uL0.0-0.8 [facility] CtrAutomated blood platelet count (count/volume)on 95-93-7350Kqnvtoegm (Bld) [#/Vol]259 10*3/aS996-509HfomiaycxAvita Health System [facility] CtrAutomated blood platelet mean volume measurementon 65-42-9003Oqszvzzz mean volume (Bld) [Entitic vol]7.0 fL6.3-10.7FMercy Hospital CtrAutomated eosinophil %on 41-82-9062Cbgoagcyblb/100 WBC (Bld)3.9 %[facility] CtrAutomated eosinophil counton 96-73-5489Dsqavigadtn (Bld) [#/Vol]0.2 10*3/uL0.0-0.45[facility] CtrAutomated erythrocyte distribution width ratioon 32-50-8813Rcumsmsmjpu distribution width (RBC) [Ratio]15.8 % 11.9-15.3FMercy Hospital CtrAutomated erythrocyte mean corpuscular hemoglobin (mass per erythrocyte)on 89-80-8070BFV (RBC) [Entitic mass]28.1 pg 24.7-34.3FMercy Hospital CtrAutomated erythrocyte mean corpuscular hemoglobin concentration measurement (mass/volon 67-54-9462WZWZ (RBC) [Mass/Vol] 33.2 g/dL32.0-35.0[facility] CtrAutomated erythrocyte mean corpuscular volumeon 88-12-4708FLS (RBC) [Entitic vol]84.7 jX41-142CwrruqtpoAvita Health System [facility] CtrAutomated monocyte %on 65-55-9006Hqbkwtajk/100 WBC (Bld)8.4 %[facility] CtrAutomated neutrophil %on 01-17-2019 Neutrophils/100 WBC (Bld)67.9 %[facility] CtrBlood erythrocytes automated count (number/volume)on 03-61-1404JSQ (Bld) [#/Vol]3.58 10*6/uL 3.60-5.00[facility] CtrBlood hemoglobin measurement (mass/volume)on 73-16-8300Rdumtjwbrk (Bld) [Mass/Vol]10.1 g/dL11.8-15.4FMercy Hospital CtrBlood leukocytes automated count (number/volume)on 04-39-4058EEH (Bld) [#/Vol]6.4 10*3/uL4.5-11.0[facility] Blood neutrophil count by automated method (number/volume)on 01-17-2019 Neutrophils (Bld) [#/Vol]4.3 10*3/uL1.8-7.7FBlanchard [facility] Estimated glomerular filtration rate (GFR) non- Americanon 01-17-2019 GFR/1.73 sq M predicted among non-blacks MDRD (S/P/Bld) [Vol rate/Area]45 mL/min/{1.73_m2}[facility] CtrHematocrit [Volume Fraction] of Blood by Automated counton 76-77-7412Nmrkutcvea (Bld) [Volume fraction]30.3 % 34.0-46.4FMercy Hospital CtrOtheron 76-74-9095DUM/1.73 sq M.predicted MDRD (S/P/Bld) [Vol rate/Area]55 mL/min/{1.73_m2}[facility] Comment on above:GFR estimated reference range: According to KDOQI guidelines, <60 ml/min/1.73m2 is sufficient todiagnose a patient with chronic kidney disease.Nucleated RBC/100 WBC (Bld) [Ratio]0.1 %0-0.5FMercy Hospital CtrPharmacy Creatinine Clearance (ChemN/AFMercy Hospital CtrSerum or plasma calcium measurement (mass/volume)on 67-12-7643Ffwmkvy [Mass/Vol]9.6 mg/dL 8.2-10.2FMercy Hospital CtrSerum or plasma chloride measurement (moles/volume)on 68-74-2303Fnnlafhl [Moles/Vol]103 mmol/D99-486HyaguhorcAvita Health System [facility] CtrSerum or plasma creatinine measurement with calculation of estimated glomerular filtron 39-99-2419Icplqxjkws [Mass/Vol]1.16 mg/dL0.44-1.03 [facility] CtrSerum or plasma glucose measurement (mass/volume) on 09-17-5719Dmrkgph [Mass/Vol]95 mg/qM65-339PvytwsbqrMercy Health Comment on above:ADA recommended reference rangeRandom Glucose Reference Range is dependent on time and content of last meal. Glucose of more than 200 mg/dL in a nonstressed, ambulatory subject supports the diagnosisof Diabetes Mellitus. Serum or plasma potassium measurement (moles/volume)on 94-58-9125Kuklfzfih [Moles/Vol]4.3 mmol/L3.5-5.1FMercy Hospital CtrSerum or plasma sodium measurement (moles/volume)on 95-87-8952Kqhdgd [Moles/Vol]138 mmol/Y981-030 [facility] CtrSerum or plasma total carbon dioxide measurement (moles/volume)on 74-68-1485XV2 [Moles/Vol]27.8 mmol/L22.0-30.0[facility] CtrSerum or plasma urea nitrogen measurement (mass/volume)on 01-17-2019 Urea nitrogen [Mass/Vol]25 mg/dL9-23[facility] CtrTransfusion reaction panel (ABO, Rh)on 55-82-6843Gijbzvfpxiw observation Gram stain Nom (Unsp spec)[facility] CtrCult, Bloodon [id number], Blood Specimen Description .BLOOD Special Requests RIGHT HAND 3ML Culture NO GROWTH 6 DAYS Report Status FINAL 12/21/2018[facility] HospitalComment on above:Performed By: #### CBC, PT, CMPX, MG, ANNIE, VNCR, IOCAL #### [facility] [address] [place] [address] Regional Forester: Hayder Gonzalez,Bloodon [id number],BloodSpecimen Description .BLOOD Special Requests LEFT ARM 3ML Culture NO GROWTH 6 DAYS Report Status FINAL 12/21/2018[facility] HospitalComment on above:Performed By: #### CBC, PT, CMPX, MG, ANNIE, VNCR, IOCAL #### [facility] [address] [id number] Regional Forester: Hayder Gonzalez,Aerobe/Anaerobeon 12-20-2018 Cult,Aerobe/AnaerobeSpecimen Description .WOUND LEFT .LEG Special Requests NOT REPORTED [...] ISOLATED AT 5 DAYS Report Status FINAL 12/20/2018NoMercy Health Urbana HospitalComment on above:Performed By: #### CBC, PT, CMPX, MG, ANNIE, VNCR, IOCAL #### [facility] [address] [place] [address] Regional Forester: Faith Gonzalez Metabolic Panelon 86-76-6078Kutql gap [Moles/Vol]13 mmol/L9 - 17 mmol/LMGreen [facility], KYBun/Cre RatioNOT REPORTED [facility], KYCalcium [Mass/Vol]9.1 mg/dL8.6 - 10.4 mg/dLCleveland Clinic [facility], KYChloride [Moles/Vol]102 mmol/L98 - 107 mmol/[facility], KYCO2 [Moles/Vol]25 mmol/L20 - 31 mmol/LMMary Rutan Hospital [place], KYCreatinine [Mass/Vol]1.02 mg/dLHigh0.5 - 0.9 mg/dLCleveland Clinic [facility], KYGFR >60>60 mL/min [facility], KYGFR Non- Znmyusye06 mL/minLow>60[facility], [place] GFR/1.73 sq M predicted among non-blacks MDRD (S/P/Bld) [Vol rate/Area]NOT REPORTEDC[facility] Clinic [facility], KYGFR/1.73 sq M predicted among non-blacks MDRD (S/P/Bld) [Vol rate/Area][facility], KYComment on above:Average GFR for 70 or more years old: 75 mL/min/1.73sq m Chronic Kidney Disease: <60 mL/min/1.73sq m Kidney failure: <15 mL/min/1.73sq m eGFR calculated using average adult body mass. Additional eGFR calculator available at: http://www.[employer]/multiple_crcl_2012.htm Glucose [Mass/Vol]89 mg/dL70 - 99 mg/dLCleveland Clinic [facility] Hospital, KYInterpretation and review of laboratory resultsAbnormLima City Hospital, KYPotassium [Moles/Vol]4.0 mmol/L3.7 - 5.3 mmol/LMGreen Cross Hospital, KYSodium [Moles/Vol]140 mmol/L135 - 144 mmol/LMGreen Cross Hospital, KYUrea nitrogen [Mass/Vol]27 mg/dLHigh8 - 23 mg/dLCleveland Clinic [facility], KYBasic Metabolic Profon 12-18-2018(cont.)NormalMercy Health St. Joseph Warren HospitalComment on above:Result Comment: Average GFR for 70 or more years old: 75 mL/min/1.73sq m Chronic Kidney Disease: <60 mL/min/1.73sq m Kidney failure: <15 mL/min/1.73sq m eGFR calculated using average adult body mass. Additional eGFR calculator available at: http://www.[employer]/multiple_crcl_2012.htmPerformed By: #### CBC, PT, CMPX, MG, ANNIE, VNCR, IOCAL #### [facility] [address] [place] [address] Regional Forester: Robin Mahoney MDAnion gap [Moles/Vol]13 mmol/LNormal9-17[facility] Warren HospitalComment on above:Performed By: #### CBC, PT, CMPX, MG, ANNIE, VNCR, IOCAL #### [facility] [address] [place] [address] Regional Forester: JIMBO Gonzalezalcium [Mass/Vol]9.1 mg/dLNormal8.6-10.4[facility] Warren HospitalComment on above:Performed By: #### CBC, PT, CMPX, MG, ANNIE, VNCR, IOCAL #### [facility] [address] [place] [address] Regional Forester: Robin Mahoney MDChloride [Moles/Vol]102 mmol/DAlkxzl65-086DwiszMercy Health St. Joseph Warren HospitalComment on above:Performed By: #### CBC, PT, CMPX, MG, ANNIE, VNCR, IOCAL #### [address] [address] Regional Forester: Robin Mahoney MDCO2 [Moles/Vol]25 mmol/POjrhlt46-00OcfmzMercy Health St. Joseph Warren HospitalComment on above:Performed By: #### CBC, PT, CMPX, MG, ANNIE, VNCR, IOCAL #### [place] [address] Regional Forester: JIMBO Gonzalezreatinine [Mass/Vol]1.02 mg/dLHigh0.50-0.[address] [facility] Warren HospitalComment on above:Performed By: #### CBC, PT, CMPX, MG, ANNIE, VNCR, IOCAL #### [place] [address] Regional Forester: Robin Mahoney MDGFR, Amer>60Normal>60[facility] Warren HospitalComment on above:Performed By: #### CBC, PT, CMPX, MG, ANNIE, VNCR, IOCAL #### [place] [address] Regional Forester: Robin Mahoney MDGFR,non Amer52 mL/minLow>60[facility] Warren HospitalComment on above:Performed By: #### CBC, PT, CMPX, MG, ANNIE, VNCR, IOCAL #### [place] [address] Regional Forester: Robin Mahoney MDGlucose [Mass/Vol]89 mg/qJWsjgtr12-93XcmysSuburban Medical CenterComment on above:Performed By: #### CBC, PT, CMPX, MG, ANNIE, VNCR, IOCAL #### [address] [address] Regional Forester: Robin Mahoney MDPotassium [Moles/Vol]4.0 mmol/LNormal3.7-5.[address] [facility] Warren HospitalComment on above:Performed By: #### CBC, PT, CMPX, MG, ANNIE, VNCR, IOCAL #### [address] [address] Regional Forester: LANA Gonzalezodium [Moles/Vol]140 mmol/NUedoiz843-492YspslMercy Health St. Joseph Warren HospitalComment on above:Performed By: #### CBC, PT, CMPX, MG, ANNIE, VNCR, IOCAL #### [address] [address] Regional Forester: Holli Gonzalez nitrogen [Mass/Vol]27 mg/dLHigh8-23[facility] Warren HospitalComment on above:Performed By: #### CBC, PT, CMPX, MG, ANNIE, VNCR, IOCAL #### [address] [address] Regional Forester: TORITO Gonzalez/CRE RatioNOT REPORTEDNormal9-20[facility] Warren HospitalComment on above:Performed By: #### CBC, PT, CMPX, MG, ANNIE, VNCR, IOCAL #### [address] [address] Regional Forester: LANA Gonzaleztaging:NOT REPORTEDNormalMercy Health St. Joseph Warren HospitalComment on above:Performed By: #### CBC, PT, CMPX, MG, ANNIE, VNCR, IOCAL #### [address] [address] Regional Forester: Ashlyn Gonzalez 65-32-3061Zrncomysblo distribution width (RBC) [Ratio]14.2 %Jgequw80.8-14.4[facility] Warren HospitalComment on above:Performed By: #### CBC, PT, CMPX, MG, ANNIE, VNCR, IOCAL #### [address] [address] Regional Forester: Robin Mahoney MDHematocrit (Bld) [Volume fraction]26.5 %Low 36.3-47.1MSuburban Medical CenterComment on above:Performed By: #### CBC, PT, CMPX, MG, ANNIE, VNCR, IOCAL #### [address] [id number] Regional Forester: Robin Mahoney MDHemoglobin (Bld) [Mass/Vol]8.2 g/dLLow11.9-15.[address] [facility] Warren HospitalComment on above:Performed By: #### CBC, PT, CMPX, MG, ANNIE, VNCR, IOCAL #### [place] [address] Regional Forester: LASHELL GonzalezCH (RBC) [Entitic mass]28.6 hqJkaiuq37.2-33.[address] [facility] Warren HospitalComment on above:Performed By: #### CBC, PT, CMPX, MG, ANNIE, VNCR, IOCAL #### [place] [address] Regional Forester: LASHELL GonzalezCHC (RBC) [Mass/Vol]30.9 g/xJCefrzg12.4-34.[address] [facility] Warren HospitalComment on above:Performed By: #### CBC, PT, CMPX, MG, ANNIE, VNCR, IOCAL #### [place] [address] Regional Forester: LASHELL GonzalezCV (RBC) [Entitic vol]92.3 mJBfxhhi50.6-102.[address] [facility] Warren HospitalComment on above:Performed By: #### CBC, PT, CMPX, MG, ANNIE, VNCR, IOCAL #### [place] [address] Regional Forester: Robin Mahoney MDNRBC Automated0.0 per [address] Joseph Warren HospitalComment on above:Performed By: #### CBC, PT, CMPX, MG, ANNIE, VNCR, IOCAL #### [address] [address] Regional Forester: Santa Gonzalez mean volume (Bld) [Entitic vol]10.1 fL Normal8.1-13.5[facility] Joseph Warren HospitalComment on above:Performed By: #### CBC, PT, CMPX, MG, ANNIE, VNCR, IOCAL #### [address] [address] Regional Forester: Avinash Gonzaleztebelen (Bld) [#/Vol]262 10*3/aDDyraum827-[address] [facility] Warren HospitalComment on above:Performed By: #### CBC, PT, CMPX, MG, ANNIE, VNCR, IOCAL #### [address] [address] Regional Forester: BORIS GonzalezBC (Bld) [#/Vol]2.87 10*6/uLLow3.95-5.11[facility] Warren HospitalComment on above:Performed By: #### CBC, PT, CMPX, MG, ANNIE, VNCR, IOCAL #### [address] [address] Regional Forester: Robin Mahoney MDWBC (Bld) [#/Vol]6.2 10*3/uLNormal3.5-11.3MSuburban Medical CenterComment on above:Performed By: #### CBC, PT, CMPX, MG, ANNIE, VNCR, IOCAL #### [address] [address] Regional Forester: Robin Mahoney MDErythrocyte distribution width (RBC) [Ratio]14.2 %11.8 - 14.4 %[facility]- [place], KYHematocrit (Bld) [Volume fraction]26.5 %Low 36.3 - 47.1 %[facility]- [place], KYHemoglobin (Bld) [Mass/Vol]8.2 g/dLLow11.9 - 15.1 g/dLTrihealth Bethesda [facility]- [place], IAInterpretation and review of laboratory results AbnormalTrihealth [facility]- [place], IAMCH (RBC) [Entitic mass]28.6 pg25.2 - 33.5 pgTrihealth Bethesda [facility]- [place], KYMCHC (RBC) [Mass/Vol]30.9 g/dL28.4 - 34.8 g/dLTrihealth Bethes[facility]- [place], [place] MCV (RBC) [Entitic vol]92.3 fL82.6 - 102.9 fLTrihealth Bethes[facility]- [place], IAPlatelet mean volume (Bld) [Entitic vol]10.1 fL8.1 - 13.5 fLTrihealth Bethesda [facility] Hospital- [place], KYPlatelets (Bld) [#/Vol]262 10*3/uLTrihealth Bethes[facility]- [place], KYRBC (Bld) [#/Vol]2.87 10*6/uLLow3.95 - 5.11 m/uLTrihealth [facility]- [place], KYWBC (Bld) [#/Vol]0.0 10*3/uL0.0 per 100 WBCTrihealth Bethes[facility]- [place], IAWBC (Bld) [#/Vol]6.2 10*3/uLTrihealth [facility]- [place], IABasic Metabolic Panelon 46-32-2693Troys gap [Moles/Vol]10 mmol/L9 - 17 mmol/LMkind[facility]- [place], KYBun/Cre RatioNOT REPORTEDTrihealth [facility]- [place], KYCalcium [Mass/Vol]8.8 mg/dL8.6 - 10.4 mg/dLTrihealth [facility]- [place], KYChloride [Moles/Vol]100 mmol/L98 - 107 mmol/LMkind[facility] hospital [facility]- [place], KYCO2 [Moles/Vol]27 mmol/L20 - 31 mmol/LMkindred [facility]- [place], [place] Creatinine [Mass/Vol]1.04 mg/dLHigh0.5 - 0.9 mg/dLTrihealth [facility]- [place], KYGFR >60>60 mL/minMercy Health- [place], KYGFR Non- Qhunugkw23 mL/minLow>60[facility], KYGFR/1.73 sq M predicted among non-blacks MDRD (S/P/Bld) [Vol rate/Area][facility], IAComment on above:Average GFR for 70 or more years old: 75 mL/min/1.73sq m Chronic Kidney Disease: <60 mL/min/1.73sq m Kidney failure: <15 mL/min/1.73sq m eGFR calculated using average adult body mass. Additional eGFR calculator available at: http://www.[employer]/AOMi_crcl_2012.htm GFR/1.73 sq M predicted among non-blacks MDRD (S/P/Bld) [Vol rate/Area]NOT REPORTEDC[facility], KYGlucose [Mass/Vol]86 mg/dL70 - 99 mg/dLCleveland Clinic [facility], IAInterpretation and review of laboratory resultsAbnormalC[facility], KYPotassium [Moles/Vol]4.0 mmol/L3.7 - 5.3 mmol/LMGreen [facility], KYSodium [Moles/Vol]137 mmol/L135 - 144 mmol/LMGreen Cross Hospital, KYUrea nitrogen [Mass/Vol]23 mg/dL8 - 23 mg/dLCleveland Clinic [facility], KYBasic Metabolic Profon 12-17-2018(cont.)NormalMercy Health St. Joseph Warren HospitalComment on above:Result Comment: Average GFR for 70 or more years old: 75 mL/min/1.73sq m Chronic Kidney Disease: <60 mL/min/1.73sq m Kidney failure: <15 mL/min/1.73sq m eGFR calculated using average adult body mass. Additional eGFR calculator available at: http://www.[employer]/multiple_crcl_2011.htmPerformed By: #### CBC, PT, CMPX, MG, ANNIE, VNCR, IOCAL #### [facility] [address] [place] [address] Regional Forester: Alley Gonzalez gap [Moles/Vol]10 mmol/LNormal9-17[facility] Warren HospitalComment on above:Performed By: #### CBC, PT, CMPX, MG, ANNIE, VNCR, IOCAL #### [facility] [address] [place] [address] Regional Forester: JIMBO Gonzalezalcium [Mass/Vol]8.8 mg/dLNormal8.6-10.4[facility] Warren HospitalComment on above:Performed By: #### CBC, PT, CMPX, MG, ANNIE, VNCR, IOCAL #### [facility] [address] [place] [address] Regional Forester: JIMBO Gonzalezhloride [Moles/Vol]100 mmol/AXkvzkh02-533FstpcMercy Health St. Joseph Warren HospitalComment on above:Performed By: #### CBC, PT, CMPX, MG, ANNIE, VNCR, IOCAL #### [place] [address] Regional Forester: Robin Mahoney MDCO2 [Moles/Vol]27 mmol/WJxkzsl85-34GzvccMercy Health St. Joseph Warren HospitalComment on above:Performed By: #### CBC, PT, CMPX, MG, ANNIE, VNCR, IOCAL #### [facility] [address] [place] [address] Regional Forester: JIMBO Gonzalezreatinine [Mass/Vol]1.04 mg/dLHigh0.50-0.[address] [facility] Warren HospitalComment on above:Performed By: #### CBC, PT, CMPX, MG, ANNIE, VNCR, IOCAL #### [facility] [address] [place] [address] Regional Forester: JANNA Gonzalez,Radha Amer>60Normal>60[facility] Warren HospitalComment on above:Performed By: #### CBC, PT, CMPX, MG, ANNIE, VNCR, IOCAL #### [facility] [address] [place] [address] Regional Forester: Robin Mahoney MDGFR,non Amer51 mL/minLow>60[facility] HospitalComment on above:Performed By: #### CBC, PT, CMPX, MG, ANNIE, VNCR, IOCAL #### [facility] [address] [place] [address] Regional Forester: Robin Mahoney MDGlucose [Mass/Vol]86 mg/lJDgrvvn85-15EvrbmSuburban Medical CenterComment on above:Performed By: #### CBC, PT, CMPX, MG, ANNIE, VNCR, IOCAL #### [place] [address] Regional Forester: JUDE Gonzalezotassium [Moles/Vol]4.0 mmol/LNormal3.7-5.[address] [facility] Warren HospitalComment on above:Performed By: #### CBC, PT, CMPX, MG, ANNIE, VNCR, IOCAL #### [place] [address] Regional Forester: LANA Gonzalezodium [Moles/Vol]137 mmol/QLnazbc010-760XaistMercy Health St. Joseph Warren HospitalComment on above:Performed By: #### CBC, PT, CMPX, MG, ANNIE, VNCR, IOCAL #### [place] [address] Regional Forester: Robin Mahoney MDUrea nitrogen [Mass/Vol]23 mg/dLNormal8-23[facility] HospitalComment on above:Performed By: #### CBC, PT, CMPX, MG, ANNIE, VNCR, IOCAL #### [place] [address] Regional Forester: Robin Mahoney MDBUN/CRE RatioNOT REPORTEDNormal9-20[facility] Warren HospitalComment on above:Performed By: #### CBC, PT, CMPX, MG, ANNIE, VNCR, IOCAL #### [facility] [address] [place] [address] Regional Forester: LANA Gonzaleztaging:NOT REPORTEDNormalMercy Health St. Joseph Warren HospitalComment on above:Performed By: #### CBC, PT, CMPX, MG, ANNIE, VNCR, IOCAL #### [address] [address] Regional Forester: Ashlyn Gonzalez 70-64-1121Rajixvhnbof distribution width (RBC) [Ratio]14.0 %Ltkspw12.8-14.4[facility] Warren HospitalComment on above:Performed By: #### CBC, PT, CMPX, MG, ANNIE, VNCR, IOCAL #### [facility] [address] [place] [address] Regional Forester: Robin Mahoney MDHematocrit (Bld) [Volume fraction]26.3 %Low 36.3-47.1MSuburban Medical CenterComment on above:Performed By: #### CBC, PT, CMPX, MG, ANNIE, VNCR, IOCAL #### [facility] [address] [place] [address] Regional Forester: Robin Mahoney MDHemoglobin (Bld) [Mass/Vol]8.1 g/dLLow11.9-15.[address] [facility] Warren HospitalComment on above:Performed By: #### CBC, PT, CMPX, MG, ANNIE, VNCR, IOCAL #### [facility] [address] [place] [address] Regional Forester: LASHELL GonzalezCH (RBC) [Entitic mass]28.4 xnTlzuyt29.2-33.[address] [facility] Warren HospitalComment on above:Performed By: #### CBC, PT, CMPX, MG, ANNIE, VNCR, IOCAL #### [facility] [address] [place] [address] Regional Forester: LASHELL GonzalezCHC (RBC) [Mass/Vol]30.8 g/xGXyghwp90.4-34.[address] [facility] HospitalComment on above:Performed By: #### CBC, PT, CMPX, MG, ANNIE, VNCR, IOCAL #### [address] [id number] Regional Forester: LASHELL GonzalezCV (RBC) [Entitic vol]92.3 xBLuuzdw37.6-102.[address] [facility] HospitalComment on above:Performed By: #### CBC, PT, CMPX, MG, ANNIE, VNCR, IOCAL #### [place] [address] Regional Forester: GREGORIA Gonzalez Automated0.0 per [address] Joseph Warren HospitalComment on above:Performed By: #### CBC, PT, CMPX, MG, ANNIE, VNCR, IOCAL #### [place] [address] Regional Forester: Santa Gonzalez mean volume (Bld) [Entitic vol]9.4 fL Normal8.1-13.5[facility] Joseph Warren HospitalComment on above:Performed By: #### CBC, PT, CMPX, MG, ANNIE, VNCR, IOCAL #### [place] [address] Regional Forester: JUDE Gonzalezlatelets (Bld) [#/Vol]216 10*3/bAAlvnnp581-[address] [facility] HospitalComment on above:Performed By: #### CBC, PT, CMPX, MG, ANNIE, VNCR, IOCAL #### [address] [address] Regional Forester: BORIS GonzalezBC (Bld) [#/Vol]2.85 10*6/uLLow3.95-5.11[facility] Warren HospitalComment on above:Performed By: #### CBC, PT, CMPX, MG, ANNIE, VNCR, IOCAL #### [facility] [address] [place], [place] [id number] Regional Forester: Robin Mahoney MDWBC (Bld) [#/Vol]5.1 10*3/uLNormal3.5-11.3MSuburban Medical CenterComment on above:Performed By: #### CBC, PT, CMPX, MG, ANNIE, VNCR, IOCAL #### [facility] [place], [place] [id number] Regional Forester: Robin Mahoney MDErythrocyte distribution width (RBC) [Ratio]14.0 %11.8 - 14.4 %[facility], KYHematocrit (Bld) [Volume fraction]26.3 %Low 36.3 - 47.1 %[facility], KYHemoglobin (Bld) [Mass/Vol]8.1 g/dLLow11.9 - 15.1 g/dLCleveland Clinic [facility], KYInterpretation and review of laboratory results AbnormalC[facility] Clinic [facility], [facility]LLH (RBC) [Entitic mass]28.4 pg25.2 - 33.5 pgCleveland Clinic [facility], KYMCHC (RBC) [Mass/Vol]30.8 g/dL28.4 - 34.8 g/dLCleveland [facility], [place] MCV (RBC) [Entitic vol]92.3 fL82.6 - 102.9 fLCleveland Clinic [facility], KYPlatelet mean volume (Bld) [Entitic vol]9.4 fL8.1 - 13.5 fLTrihealth [facility]- [place], KYPlatelets (Bld) [#/Vol]216 10*3/uLTrihealth [facility]- [place], KYRBC (Bld) [#/Vol]2.85 10*6/uLLow3.95 - 5.11 m/uLTrihealth [facility]- [place], KYWBC (Bld) [#/Vol]0.0 10*3/uL0.0 per 100 WBCCleveland Clinic Union HospitalDAIANAWBC (Bld) [#/Vol]5.1 10*3/uLCleveland Clinic Union HospitalDAIANACalcium, Ionicon [id number] [Mass/Vol]1.19 mmol/LNormal1.13-1.33[facility] Joseph Warren HospitalComment on above:Performed By: #### CBC, PT, CMPX, MG, ANNIE, VNCR, IOCAL #### [facility] [address] [place] [address] Regional Forester: JIMBO Gonzalezalcium, Ionizedon [id number] [Mass/Vol] 1.19 mmol/L1.13 - 1.33 mmol/LMercy Jupiter Medical CenterTHIAGOCOMYCIN, TROUGHon 12-17-2018 Vancomycin Tr12.9 ug/mL10 - 20 ug/mLCleveland Clinic Union Hospital DAIANAComment on above:Higher trough serum vancomycin concentrations of 15-20 ug/mL are recommended for complicated infections such as bacteremia, endocarditis, osteomyelitis, meningitis, and hospital acquired pneumonia. Vancomycin Trough Date last doseNOT [facility], KYVancomycin Trough Dose amountNOT [facility]- [place], KYVancomycin Trough Time last doseNOT [facility], DAIANAVancomycin Troughon [id number] Qgscue69.9 ug/wMQyvmfa34.0-20.0[facility]. Joseph Warren HospitalComment on above: Result Comment: Higher trough serum vancomycin concentrations of 15-20 ug/mL are recommended for complicated infections such as bacteremia, endocarditis, osteomyelitis, meningitis, and hospital acquired pneumonia.Performed By: #### CBC, PT, CMPX, MG, ANNIE, VNCR, IOCAL #### [facility] [address] [place] [address] [phone] Regional Forester: EZEQUIEL Gonzalezate last dose,NOT REPORTEDNormalMercy Health St. Joseph Warren HospitalComment on above:Performed By: #### CBC, PT, CMPX, MG, ANNIE, VNCR, IOCAL #### [facility] [address] [place] [address] [phone] Regional Forester: EZEQUIEL Gonzalezose amount,NOT REPORTEDNormalMercy Health St. Joseph Warren HospitalComment on above:Performed By: #### CBC, PT, CMPX, MG, ANNIE, VNCR, IOCAL #### [facility] [address] [place] [address] [phone] Regional Forester: Robin Mahoney MDTime last dose,NOT REPORTEDNormalMercy Health St. Joseph Warren HospitalComment on above:Performed By: #### CBC, PT, CMPX, MG, ANINE, VNCR, IOCAL #### [facility] [address] [place] [address] [phone] Regional Forester: Martin Gonzalezsic Metab w/rfx MGon 12-16-2018(cont.)Normal [facility] Joseph Warren HospitalComment on above:Result Comment: Average GFR for 70 or more years old: 75 mL/min/1.73sq m Chronic Kidney Disease: <60 mL/min/1.73sq m Kidney failure: <15 mL/min/1.73sq m eGFR calculated using average adult body mass. Additional eGFR calculator available at: http://www.[employer]/multiple_crcl_2012.htmPerformed By: #### CBC, PT, CMPX, MG, ANNIE, VNCR, IOCAL #### [facility] [address] [place] [address] [phone] Regional Forester: Robin Mahoney MDAnion gap [Moles/Vol]11 mmol/LNormal9-17[facility] Joseph Warren HospitalComment on above:Performed By: #### CBC, PT, CMPX, MG, ANNIE, VNCR, IOCAL #### [facility] [address] [place] [address] [phone] Regional Forester: Robin Mahoney MDCalcium [Mass/Vol]8.5 mg/dLLow8.6-10.4[facility] Warren HospitalComment on above:Performed By: #### CBC, PT, CMPX, MG, ANNIE, VNCR, IOCAL #### [facility] [address] [place] [phone] Regional Forester: JIMBO Gonzalezhloride [Moles/Vol]102 mmol/TKcrqsf78-875ZouysMercy Health St. Joseph Warren HospitalComment on above:Performed By: #### CBC, PT, CMPX, MG, ANNIE, VNCR, IOCAL #### [facility] [address] [place] [address] Regional Forester: Robin Mahoney MDCO2 [Moles/Vol]25 mmol/TYtsmsd07-92IfpibMercy Health St. Joseph Warren HospitalComment on above:Performed By: #### CBC, PT, CMPX, MG, ANNIE, VNCR, IOCAL #### [address] [address] Regional Forester: JIMBO Gonzalezreatinine [Mass/Vol]1.05 mg/dLHigh0.50-0.[address] [facility] Warren HospitalComment on above:Performed By: #### CBC, PT, CMPX, MG, ANNIE, VNCR, IOCAL #### [address] [address] Regional Forester: Robin Mahoney MDGFR, Amer>60Normal>60[facility] Warren HospitalComment on above:Performed By: #### CBC, PT, CMPX, MG, ANNIE, VNCR, IOCAL #### [facility] [address] [place] [phone] Regional Forester: Robin Mahoney MDGFR,non Amer51 mL/minLow>60[facility] Warren HospitalComment on above:Performed By: #### CBC, PT, CMPX, MG, ANNIE, VNCR, IOCAL #### [facility] [address] [place] [address] Regional Forester: Robin Mahoney MDGlucose [Mass/Vol]91 mg/hTVwhxai78-08UrcouGardens Regional Hospital & Medical Center - Hawaiian GardensComment on above:Performed By: #### CBC, PT, CMPX, MG, ANNIE, VNCR, IOCAL #### [facility] [address] [place] [address] Regional Forester: JUDE Gonzalezotassium [Moles/Vol]4.4 mmol/LNormal3.7-5.[address] [facility] Warren HospitalComment on above:Performed By: #### CBC, PT, CMPX, MG, ANNIE, VNCR, IOCAL #### [facility] [address] [place] [address] Regional Forester: LANA Gonzalezodium [Moles/Vol]138 mmol/OMdiknw730-700OvpbkMercy Health St. Joseph Warren HospitalComment on above:Performed By: #### CBC, PT, CMPX, MG, ANNIE, VNCR, IOCAL #### [address] [address] Regional Forester: Holli Gonzalez nitrogen [Mass/Vol]17 mg/dLNormal8-23[facility]. Joseph Warren HospitalComment on above:Performed By: #### CBC, PT, CMPX, MG, ANNIE, VNCR, IOCAL #### [facility] [address] [place] [address] Regional Forester: TORITO Gonzalez/CRE AlberOT REPORTEDNormal9-20[facility]. [facility] Warren HospitalComment on above:Performed By: #### CBC, PT, CMPX, MG, ANNIE, VNCR, IOCAL #### [facility] [address] [place] [address] Regional Forester: LANA Gonzaleztaging:NOT REPORTEDNormalMercy Health St. Joseph Warren HospitalComment on above:Performed By: #### CBC, PT, CMPX, MG, ANNIE, VNCR, IOCAL #### [facility] [address] [place] [phone] Regional Forester: Martin Gonzalezsic Metabolic Panel w/ Reflex to MGon [id number] gap [Moles/Vol]11 mmol/L9 - 17 mmol/LMdayton osteopathic hospitaly Health- [place], KYBun/Cre RatioNOT REPORTEDMerEvergreenHealth [place]- [place], KYCalcium [Mass/Vol]8.5 mg/dLLow8.6 - 10.4 mg/dLTrihealth [facility]- [place], KYChloride [Moles/Vol]102 mmol/L98 - 107 mmol/LMercy Health- [place], KYCO2 [Moles/Vol]25 mmol/L20 - 31 mmol/LMercy Health- [place], [place] Creatinine [Mass/Vol]1.05 mg/dLHigh0.5 - 0.9 mg/dLTrihealth [facility]- [place], KYGFR >60>60 mL/minTrihealth [facility]- [place], KYGFR Non- Mscsxqga25 mL/minLow>60[facility]- [place], KYGFR/1.73 sq M predicted among non-blacks MDRD (S/P/Bld) [Vol rate/Area][facility], KYComment on above:Average GFR for 70 or more years old: 75 mL/min/1.73sq m Chronic Kidney Disease: <60 mL/min/1.73sq m Kidney failure: <15 mL/min/1.73sq m eGFR calculated using average adult body mass. Additional eGFR calculator available at: http://www.[employer]/multiple_crcl_2012.htm GFR/1.73 sq M predicted among non-blacks MDRD (S/P/Bld) [Vol rate/Area]NOT REPORTEDCenterville [place], KYGlucose [Mass/Vol]91 mg/dL70 - 99 mg/dLTrihealth [facility]- [place], KYInterpretation and review of laboratory resultsAbnormalTrihealth [facility]- [place], KYPotassium [Moles/Vol]4.4 mmol/L3.7 - 5.3 mmol/LMdayton osteopathic hospitaly Health- [place], KYSodium [Moles/Vol]138 mmol/L135 - 144 mmol/LMercy Health- [place], KYUrea nitrogen [Mass/Vol]17 mg/dL8 - 23 mg/dLTrihealth [facility]- [place], KYCBC Auto Differentialon [id number] (Bld) [#/Vol]0.04 10*3/[facility], KYBasophils/100 WBC (Bld)1 %0 - 2 %[facility], KYDifferential TypeNOT REPORTEDCleveland Clinic Union Hospital, KYEosinophils (Bld) [#/Vol]0.24 10*3/[facility], [place] Eosinophils/100 WBC (Bld)4 %1 - 4 %[facility], KYErythrocyte distribution width (RBC) [Ratio]14.4 %11.8 - 14.4 %[facility], KYHematocrit (Bld) [Volume fraction]25.0 %Low36.3 - 47.1 %[facility], KYHemoglobin (Bld) [Mass/Vol]7.6 g/dLLow11.9 - 15.1 g/dLCleveland Clinic Union Hospital, KYImmature granulocytes (Bld) [#/Vol]0 %0[facility], KYImmature granulocytes (Bld) [#/Vol]10*3/uL [facility], KYInterpretation and review of laboratory resultsAbnormLima City Hospital, KYLymphocytes (Bld) [#/Vol]0.92 10*3/uLPremier Health [facility], [place] Lymphocytes/100 WBC (Bld)14 %Low24 - 43 %[facility], KYMCH (RBC) [Entitic mass]28.5 pg25.2 - 33.5 pgCleveland Clinic Union Hospital, KYMCHC (RBC) [Mass/Vol]30.4 g/dL28.4 - 34.8 g/dLCleveland Clinic [facility] Hospital, KYMCV (RBC) [Entitic vol]93.6 fL82.6 - 102.9 fL [facility], KYMonocytes (Bld) [#/Vol]0.53 10*3/uLCleveland Clinic Union Hospital, [place] Monocytes/100 WBC (Bld)8 %3 - 12 %[facility], KYPlatelet mean volume (Bld) [Entitic vol]9.6 fL8.1 - 13.5 fLCleveland Clinic Union Hospital, KYPlatelets (Bld) [#/Vol]NOT REPORTEDCleveland Clinic Union Hospital, KYPlatelets (Bld) [#/Vol]224 10*3/[place], KYRBC (Bld) [#/Vol]2.67 10*6/uLLow3.95 - 5.11 m/[facility] morphology finding Nom (Bld)NOT REPORTEDOhioHealth Dublin Methodist Hospitalgmented neutrophils/100 WBC (Bld)74 %High36 - 65 %[place], KYSegs Absolute4.94 [place], KYWBC (Bld) [#/Vol]0.0 10*3/uL0.0 per 100 WBCHunlock Creek, KYWBC (Bld) [#/Vol]6.7 10*3/uLCleveland Clinic Union Hospital, KYWBC MorphologyNOT REPORTED [facility] with Diffon [id number]. Basophil0.04 k/uLNormal 0.00-0.20[facility] HospitalComment on above:Performed By: #### CBC, PT, CMPX, MG, ANNIE, VNCR, IOCAL #### [place] [address] Regional Forester: Rachel Gonzalez.Imm.Granulocyte<0.77Jpaipv2.00-0.30[facility] Warren HospitalComment on above:Performed By: #### CBC, PT, CMPX, MG, ANNIE, VNCR, IOCAL #### [facility] [address] [place] [address] Regional Forester: Rachel Gonzalez.Neutrophil (Seg)4.94 k/uLNormal1.50-8.[address] [facility] Warren HospitalComment on above:Performed By: #### CBC, PT, CMPX, MG, ANNIE, VNCR, IOCAL #### [facility] [address] [place] [address] Regional Forester: Robin Mahoney MDBasophils/100 WBC (Bld)1 %Normal0-2MSuburban Medical CenterComment on above:Performed By: #### CBC, PT, CMPX, MG, ANNIE, VNCR, IOCAL #### [place] [address] Regional Forester: Robin Mahoney MDEosinophils (Bld) [#/Vol]0.24 10*3/uLNormal 0.00-0.44[facility] Warren HospitalComment on above:Performed By: #### CBC, PT, CMPX, MG, ANNIE, VNCR, IOCAL #### [place] [address] Regional Forester: UNIQUE Gonzalezosinophils/100 WBC (Bld)4 %Normal1-4[facility] Warren HospitalComment on above:Performed By: #### CBC, PT, CMPX, MG, ANNIE, VNCR, IOCAL #### [place] [address] Regional Forester: Robin Mahoney MDErythrocyte distribution width (RBC) [Ratio]14.4 %Zajgkd43.8-14.4[facility] Warren HospitalComment on above:Performed By: #### CBC, PT, CMPX, MG, ANNIE, VNCR, IOCAL #### [place] [address] Regional Forester: Robin Mahoney MDHematocrit (Bld) [Volume fraction]25.0 %Low 36.3-47.1MSuburban Medical CenterComment on above:Performed By: #### CBC, PT, CMPX, MG, ANNIE, VNCR, IOCAL #### [place] [address] Regional Forester: Robin Mahoney MDHemoglobin (Bld) [Mass/Vol]7.6 g/dLLow11.9-15.[address] [facility] Warren HospitalComment on above:Performed By: #### CBC, PT, CMPX, MG, ANNIE, VNCR, IOCAL #### [place] [address] Regional Forester: Robin Mahoney MDImmature granulocytes (Bld) [#/Vol]0 %Normal[address] [facility] Warren HospitalComment on above:Performed By: #### CBC, PT, CMPX, MG, ANNIE, VNCR, IOCAL #### [place] [address] Regional Forester: Robin Mahoney MDLymphocytes (Bld) [#/Vol]0.92 10*3/uLLow 1.10-3.70[facility] Warren HospitalComment on above:Performed By: #### CBC, PT, CMPX, MG, ANNIE, VNCR, IOCAL #### [place] [address] Regional Forester: Oswaldo Gonzalezhocytes/100 WBC (Bld)14 %Oxo15-25PitzhMercy Health St. Joseph Warren HospitalComment on above:Performed By: #### CBC, PT, CMPX, MG, ANNIE, VNCR, IOCAL #### [place] [address] Regional Forester: LASHELL GonzalezCH (RBC) [Entitic mass]28.5 buKlgknz51.2-33.[address] [facility] Warren HospitalComment on above:Performed By: #### CBC, PT, CMPX, MG, ANNIE, VNCR, IOCAL #### [place] [address] Regional Forester: KHARI GonzalezC (RBC) [Mass/Vol]30.4 g/bFFzevhx00.4-34.[address] [facility] Warren HospitalComment on above:Performed By: #### CBC, PT, CMPX, MG, ANNIE, VNCR, IOCAL #### [address] [address] Regional Forester: LASHELL GonzalezCV (RBC) [Entitic vol]93.6 yHXmafxn75.6-102.[address] [facility] Warren HospitalComment on above:Performed By: #### CBC, PT, CMPX, MG, ANNIE, VNCR, IOCAL #### [address] [address] Regional Forester: LASHELL Gonzalezonocytes (Bld) [#/Vol]0.53 10*3/uLNormal 0.10-1.20[facility] HospitalComment on above:Performed By: #### CBC, PT, CMPX, MG, ANNIE, VNCR, IOCAL #### [address] [address] Regional Forester: LASHELL Gonzalezonocytes/100 WBC (Bld)8 %Normal3-12[facility] Warren HospitalComment on above:Performed By: #### CBC, PT, CMPX, MG, ANNIE, VNCR, IOCAL #### [place] [address] Regional Forester: Fransisco Gonzalezutrophil (Seg)74 %Uwty40-84GejnlMercy Health St. Joseph Warren HospitalComment on above:Performed By: #### CBC, PT, CMPX, MG, ANNIE, VNCR, IOCAL #### [address] [address] Regional Forester: Robin Mahoney MDNRBC Automated0.0 per [address] [facility] Warren HospitalComment on above:Performed By: #### CBC, PT, CMPX, MG, ANNIE, VNCR, IOCAL #### [address] [address] Regional Forester: JUDE Gonzalezlatelet mean volume (Bld) [Entitic vol]9.6 fL Normal8.1-13.5[facility] Joseph Warren HospitalComment on above:Performed By: #### CBC, PT, CMPX, MG, ANNIE, VNCR, IOCAL #### [address] [address] Regional Forester: John Gonzalez (d) [#/Vol]224 10*3/qYAuxzun101-[address] [facility] HospitalComment on above:Performed By: #### CBC, PT, CMPX, MG, ANNIE, VNCR, IOCAL #### [address] [address] Regional Forester: JERAD Gonzalez (d) [#/Vol]2.67 10*6/uLLow3.95-5.11[facility] HospitalComment on above:Performed By: #### CBC, PT, CMPX, MG, ANNIE, VNCR, IOCAL #### [address] [address] Regional Forester: COSME Gonzalze (d) [#/Vol]6.7 10*3/uLNormal3.5-11.3MSuburban Medical CenterComment on above:Performed By: #### CBC, PT, CMPX, MG, ANNIE, VNCR, IOCAL #### [address] [address] Regional Forester: Marla Gonzalez PerformedNOT REPORTEDNoMercy Health Urbana HospitalComment on above:Performed By: #### CBC, PT, CMPX, MG, ANNIE, VNCR, IOCAL #### [address] [address] Regional Forester: John Gonzalez (d) [#/Vol]NOT REPORTEDGalion HospitalComment on above:Performed By: #### CBC, PT, CMPX, MG, ANNIE, VNCR, IOCAL #### [facility] [address] [place] [address] Regional Forester: JERAD Gonzalez morphology finding Nom (Bld)NOT REPORTED [facility] HospitalComment on above:Performed By: #### CBC, PT, CMPX, MG, ANNIE, VNCR, IOCAL #### [facility] [address] [place] [address] Regional Forester: COSME Gonzalez MorphologyNOT REPORTEDNoMercy Health Urbana HospitalComment on above:Performed By: #### CBC, PT, CMPX, MG, ANNIE, VNCR, IOCAL #### [facility] [address] [place] [address] Regional Forester: JIMBO Gonzalez-REACTIVE PROTEINon [id number] [Mass/Vol] 98.6 mg/LHigh0 - 5 mg/LMGreen Cross Hospital, KYInterpretation and review of laboratory resultsAbLima City Hospital-Reactive Proteinon [id number] [Mass/Vol]98.6 mg/LHigh0.0-5.0[facility] Warren HospitalComment on above: Performed By: #### CRP, SED #### [address] [id number] Regional Forester: CHIQUITA Gonzalezon 74-96-1014Gaedqysmler distribution width (RBC) [Ratio]14.5 %High11.8-14.4[facility] Warren HospitalComment on above:Performed By: #### CBC, PT, CMPX, MG, ANNIE, VNCR, IOCAL #### [facility] [address] [place] [address] Regional Forester: Robin Mahoney MDHematocrit (Bld) [Volume fraction]25.5 %Low 36.3-47.1MSuburban Medical CenterComment on above:Performed By: #### CBC, PT, CMPX, MG, ANNIE, VNCR, IOCAL #### [address] [phone] Regional Forester: Robin Mahoney MDHemoglobin (Bld) [Mass/Vol]7.7 g/dLLow11.9-15.[address] [facility] HospitalComment on above:Performed By: #### CBC, PT, CMPX, MG, ANNIE, VNCR, IOCAL #### [place] [address] Regional Forester: LASHELL GonzalezCH (RBC) [Entitic mass]28.6 ghUbwkzw66.2-33.[address] [facility] HospitalComment on above:Performed By: #### CBC, PT, CMPX, MG, ANNIE, VNCR, IOCAL #### [place] [address] Regional Forester: KHARI GonzalezC (RBC) [Mass/Vol]30.2 g/bAImyodx95.4-34.[address] [facility] HospitalComment on above:Performed By: #### CBC, PT, CMPX, MG, NANIE, VNCR, IOCAL #### [address] [address] Regional Forester: LASHELL GonzalezCV (RBC) [Entitic vol]94.8 hTUengrg03.6-102.[address] [facility] HospitalComment on above:Performed By: #### CBC, PT, CMPX, MG, ANNIE, VNCR, IOCAL #### [place] [address] Regional Forester: CYNTHIA GonzalezBC Automated0.0 per [address] [facility] HospitalComment on above:Performed By: #### CBC, PT, CMPX, MG, ANNIE, VNCR, IOCAL #### [address] [address] Regional Forester: Santa Gonzalez mean volume (Bld) [Entitic vol]9.6 fL Normal8.1-13.5[facility] HospitalComment on above:Performed By: #### CBC, PT, CMPX, MG, ANNIE, VNCR, IOCAL #### [address] [address] Regional Forester: Avinash Gonzaleztelets (Bld) [#/Vol]232 10*3/kOFqlhgp072-[address] [facility] HospitalComment on above:Performed By: #### CBC, PT, CMPX, MG, ANNIE, VNCR, IOCAL #### [address] [address] Regional Forester: BORIS GonzalezBC (Bld) [#/Vol]2.69 10*6/uLLow3.95-5.11[facility] HospitalComment on above:Performed By: #### CBC, PT, CMPX, MG, ANNIE, VNCR, IOCAL #### [address] [address] Regional Forester: Robin Mahoney MDWBC (Bld) [#/Vol]6.4 10*3/uLNormal3.5-11.3MSuburban Medical CenterComment on above:Performed By: #### CBC, PT, CMPX, MG, ANNIE, VNCR, IOCAL #### [facility] [address] [place] [address] Regional Forester: Robin Mahoney MDErythrocyte distribution width (RBC) [Ratio]14.5 %High11.8 - 14.4 %[facility], KYHematocrit (Bld) [Volume fraction]25.5 % Low36.3 - 47.1 %[facility], KYHemoglobin (Bld) [Mass/Vol]7.7 g/dLLow11.9 - 15.1 g/dLCleveland Clinic [facility] Hospital, IAInterpretation and review of laboratory results AbnormalKeenan Private HospitalH (RBC) [Entitic mass]28.6 pg25.2 - 33.5 pgHunlock [place], KYMCHC (RBC) [Mass/Vol]30.2 g/dL28.4 - 34.8 g/dLHunlock Creek, [place] MCV (RBC) [Entitic vol]94.8 fL82.6 - 102.9 fLHunlock Creek, KYPlatelet mean volume (Bld) [Entitic vol]9.6 fL8.1 - 13.5 fLHunlock Creek, KYPlatelets (Bld) [#/Vol]232 10*3/uLCleveland Clinic Union Hospital, IARBC (Bld) [#/Vol]2.69 10*6/uLLow3.95 - 5.11 m/uLCleveland Clinic Union Hospital, IAWBC (Bld) [#/Vol]6.4 10*3/uLCleveland Clinic [facility] Hospital, IAWBC (Bld) [#/Vol]0.0 10*3/uL0.0 per 100 WBCHunlock Creek, KYCalcium, Ionicon [id number] [Mass/Vol]1.21 mmol/LNormal1.13-1.33[facility] HospitalComment on above:Performed By: #### CBC, PT, CMPX, MG, ANNIE, VNCR, IOCAL #### [facility] [address] [place] [address] Regional Forester: Robin Mahoney [facility] Metabolic Pr/rfx MGon 12-15-2018(cont.) NormalMercy Health St. Joseph Warren HospitalComment on above:Result Comment: Average GFR for 70 or more years old: 75 mL/min/1.73sq m Chronic Kidney Disease: <60 mL/min/1.73sq m Kidney failure: <15 mL/min/1.73sq m eGFR calculated using average adult body mass. Additional eGFR calculator available at: http://www.[employer]/multiple_crcl_2012.htmPerformed By: #### CBC, PT, CMPX, MG, ANNIE, VNCR, IOCAL #### [address] [address] Regional Forester: Robin Mahoney MDAlbumin [Mass/Vol]3.3 g/dLLow3.5-5.2MSuburban Medical CenterComment on above:Performed By: #### CBC, PT, CMPX, MG, ANNIE, VNCR, IOCAL #### [address] [address] Regional Forester: Robin Mahoney MDAlbumin/Globulin [Mass ratio]1.0 {ratio}Normal 1.0-2.5[facility] HospitalComment on above:Performed By: #### CBC, PT, CMPX, MG, ANNIE, VNCR, IOCAL #### [address] [address] Regional Forester: Melanie Gonzalezline Phos67 U/PVzudha84-531KmsanMercy Health St. Joseph Warren HospitalComment on above:Performed By: #### CBC, PT, CMPX, MG, ANNIE, VNCR, IOCAL #### [place] [address] Regional Forester: Robin Mahoney MDALT [Catalytic activity/Vol]8 U/LNormal5-33[facility] HospitalComment on above:Performed By: #### CBC, PT, CMPX, MG, ANNIE, VNCR, IOCAL #### [address] [address] Regional Forester: Alley Gonzalez gap [Moles/Vol]12 mmol/LNormal9-17[facility] HospitalComment on above:Performed By: #### CBC, PT, CMPX, MG, ANNIE, VNCR, IOCAL #### [address] [address] Regional Forester: Robin Madoff, MDAST [Catalytic activity/Vol]15 U/LNormal<32[facility] HospitalComment on above:Performed By: #### CBC, PT, CMPX, MG, ANNIE, VNCR, IOCAL #### [place] [address] Regional Forester: Robin Mahoney MDBilirubin Ql (U)0.25 mg/dLLow0.3-1.2MSuburban Medical CenterComment on above:Performed By: #### CBC, PT, CMPX, MG, ANNIE, VNCR, IOCAL #### [place] [address] Regional Forester: JIMBO Gonzalezalcium [Mass/Vol]8.6 mg/dLNormal8.6-10.4[facility] HospitalComment on above:Performed By: #### CBC, PT, CMPX, MG, ANNIE, VNCR, IOCAL #### [place] [address] Regional Forester: JIMBO Gonzalezhloride [Moles/Vol]103 mmol/ZCjwakc27-032ZidxcMercy Health St. Joseph Warren HospitalComment on above:Performed By: #### CBC, PT, CMPX, MG, ANNIE, VNCR, IOCAL #### [place] [address] Regional Forester: Robin Mahoney MDCO2 [Moles/Vol]23 mmol/TSclxzb53-90CmsvjMercy Health St. Joseph Warren HospitalComment on above:Performed By: #### CBC, PT, CMPX, MG, ANNIE, VNCR, IOCAL #### [place] [address] Regional Forester: Robin Mahoney MDCreatinine [Mass/Vol]1.27 mg/dLHigh0.50-0.[address] [facility] HospitalComment on above:Performed By: #### CBC, PT, CMPX, MG, ANNIE, VNCR, IOCAL #### [address] [address] Regional Forester: Robin Mahoney MDGFR, Amer49 mL/minLow>60[facility] HospitalComment on above:Performed By: #### CBC, PT, CMPX, MG, ANNIE, VNCR, IOCAL #### [place] [address] Regional Forester: Robin Mahoney MDGFR,non Amer41 mL/minLow>60[facility] HospitalComment on above:Performed By: #### CBC, PT, CMPX, MG, ANNIE, VNCR, IOCAL #### [address] [address] Regional Forester: Robin Mahoney MDGlucose [Mass/Vol]78 mg/jIAoknxe12-00DzwimSuburban Medical CenterComment on above:Performed By: #### CBC, PT, CMPX, MG, ANNIE, VNCR, IOCAL #### [place] [address] Regional Forester: Robin Mahoney MDPotassium [Moles/Vol]4.3 mmol/LNormal3.7-5.[address] [facility] HospitalComment on above:Performed By: #### CBC, PT, CMPX, MG, ANNIE, VNCR, IOCAL #### [place] [address] Regional Forester: Robin Mahoney, MDProtein [Mass/Vol]6.6 g/dLNormal6.4-8.3MSuburban Medical CenterComment on above:Performed By: #### CBC, PT, CMPX, MG, ANNIE, VNCR, IOCAL #### [address] [address] Regional Forester: Robin Mahoney MDSodium [Moles/Vol]138 mmol/HOlzyyd676-077CkkruMercy Health St. Joseph Warren HospitalComment on above:Performed By: #### CBC, PT, CMPX, MG, ANNIE, VNCR, IOCAL #### [facility] [address] [place] [address] Regional Forester: Robin Mahoney MDUrea nitrogen [Mass/Vol]20 mg/dLNormal8-23Mer[facility] St. Joseph Warren HospitalComment on above:Performed By: #### CBC, PT, CMPX, MG, ANNIE, VNCR, IOCAL #### [facility] [address] [place] [address] Regional Forester: TORITO Gonzalez/LYUBOV CampoOT REPORTEDNormal9-20[facility]. Joseph Warren HospitalComment on above:Performed By: #### CBC, PT, CMPX, MG, ANNIE, VNCR, IOCAL #### [facility] [address] [place] [address] Regional Forester: LANA Gonzaleztaging:NOT REPORTEDNormalMercy Health St. Joseph Warren HospitalComment on above:Performed By: #### CBC, PT, CMPX, MG, ANNIE, VNCR, IOCAL #### [facility] [address] [place], [place] [phone] Regional Forester: JIMBO Gonzalezomprehensive Metabolic Panel w/ Reflex to MGon 36-00-1240Vyzdiri [Mass/Vol]3.3 g/dLLow3.5 - 5.2 g/dLCleveland Clinic Union Hospital, [place] Albumin/Globulin [Mass ratio]1.0 {ratio}[facility], KYALP [Catalytic activity/Vol]67 U/L35 - 104 U/LMGreen Cross Hospital, KYALT [Catalytic activity/Vol]8 U/L5 - 33 U/[facility], KYAnion gap [Moles/Vol]12 mmol/L9 - 17 mmol/L [facility], KYAST [Catalytic activity/Vol]15 U/L<32[facility], [place] Bilirubin Ql (U)0.25 mg/dLLow0.3 - 1.2 mg/dLMercy Health [facility] Centercy [facility]- [place], KYBun/Cre RatioNOT REPORTEDMer Health- [place], KYCalcium [Mass/Vol]8.6 mg/dL8.6 - 10.4 mg/dLMercy Health St. [facility] Health- [place], KYChloride [Moles/Vol]103 mmol/L98 - 107 mmol/LMdayton osteopathic hospitaly Health- [place], [place] CO2 [Moles/Vol]23 mmol/L20 - 31 mmol/LMercy Health- [place], KYCreatinine [Mass/Vol] 1.27 mg/dLHigh0.5 - 0.9 mg/dLMercy Health St. [facility] Health- [place], KYGFR Jszjpobr60 mL/min Low>60[facility]- [place], KYGFR Non- Ntqhjfsk14 mL/minLow>60[facility]- [place], KYGFR/1.73 sq M predicted among non-blacks MDRD (S/P/Bld) [Vol rate/Area]NOT REPORTEDTri[facility]- [place], KYGFR/1.73 sq M predicted among non-blacks MDRD (S/P/Bld) [Vol rate/Area][facility], KYComment on above:Average GFR for 70 or more years old: 75 mL/min/1.73sq m Chronic Kidney Disease: <60 mL/min/1.73sq m Kidney failure: <15 mL/min/1.73sq m eGFR calculated using average adult body mass. Additional eGFR calculator available at: http://www.[employer]/multiple_crcl_2012.htm Glucose [Mass/Vol]78 mg/dL70 - 99 mg/dLTrihealth Bethesda Butler Hospital- [place], KYInterpretation and review of laboratory resultsAbnormalMer Health- [place], KYPotassium [Moles/Vol]4.3 mmol/L3.7 - 5.3 mmol/LMercy Health- [place], KYProtein [Mass/Vol]6.6 g/dL6.4 - 8.3 g/dLMercy Health St. [facility] Health- [place], KYSodium [Moles/Vol]138 mmol/L135 - 144 mmol/LMdayton osteopathic hospitaly Health- [place], KYUrea nitrogen [Mass/Vol]20 mg/dL8 - 23 mg/dLMercy Health St. [facility]- [place], [place] Hematologyon 58-34-7913AGP Coag (Bld) [Relative time]NOT REPORTEDCleveland Clinic Union Hospital, KYIonized Calciumon 04-34-5802Jdfeojw [Mass/Vol]1.21 mmol/L1.13 - 1.33 mmol/LMGreen Cross Hospital, KYLactate, Sepsison 96-80-5405Owipjv Acid,Sep Wbld1.1 mmol/LNormal0.5-1.9[facility] St. Joseph Warren HospitalComment on above:Performed By: #### LACDS #### [facility]Act[facility] [address] [place] [address] [phone] Regional Forester: Robin Mahoney MDLactic Acid, SepsisNOT REPORTEDNormal0.5-1.[address] [facility] Warren HospitalComment on above:Performed By: #### LACDS #### [facility] [address] [place] [address] [phone] Regional Forester: Frida Gonzalezctic Acid, SepsisNOT REPORTED0.5 - 1.9 mmol/L [facility] DAIANALactic Acid, Sepsis, Whole Blood1.1 mmol/L0.5 - 1.9 mmol/L [facility], KYMagnesiumon 77-76-9850Dtjlcvqca [Mass/Vol]2.2 mg/dLNormal 1.6-2.6MSuburban Medical CenterComment on above:Performed By: #### CBC, PT, CMPX, MG, ANNIE, VNCR, IOCAL #### [facility] [employer] [address] [place] [address] [phone] Regional Forester: Robin Mahoney MDMagnesium [Mass/Vol]2.2 mg/dL1.6 - 2.6 mg/dL [facility], DAIANAPTon 53-56-9752HRA Coag (PPP) [Relative time]1.0 {INR}Normal [facility]. Joseph Warren HospitalComment on above:Result Comment: Therapeutic Range: Moderate Anticoagulant Intensity: INR = 2.0-3.0 High Anticoagulant Intensity: INR = 2.5-3.5Performed By: #### CBC, PT, CMPX, MG, ANNIE, VNCR, IOCAL #### [employer] [address] [place] [address] [phone] Regional Forester: VIDAL Gonzalez Coag (PPP) [Time]10.9 sNormal9.0-12.0Mer[facility] Health St. Joseph Warren HospitalComment on above:Performed By: #### CBC, PT, CMPX, MG, ANNIE, VNCR, IOCAL #### [facility] [address] [place] [address] [phone] Regional Forester: Galina Gonzalezhoruson 24-33-0361Hsyuqcacf [Mass/Vol]3.5 mg/dL2.6 - 4.5 mg/dLCleveland Clinic Union Hospital, KYPhosphorus, Inorg.on 12-15-2018 Phosphorus, Inorg.3.5 mg/dLNormal2.6-4.5[facility] St. Joseph Warren HospitalComment on above:Performed By: #### CBC, PT, CMPX, MG, ANNIE, VNCR, IOCAL #### [facility] [address] [place] [address] [phone] Regional Forester: Tona Gonzalezime-INRon 41-09-9856GOY Coag (PPP) [Relative time]1.0 {INR}[facility], KYComment on above: Therapeutic Range: Moderate Anticoagulant Intensity: INR = 2.0-3.0 High Anticoagulant Intensity: INR = 2.5-3.5 PT Coag (PPP) [Time]10.9 sMGreen Cross Hospital, KYSedimentation Rateon 12-15-2018 Sedimentation Rate70 mmHigh0-20[facility] St. Joseph Warren HospitalComment on above: Performed By: #### CBC, PT, CMPX, MG, ANNIE, VNCR, IOCAL #### [employer] [address] [place] [address] [phone] Regional Forester: Robin Mahoney MDInterpretation and review of laboratory results AbnormalC[facility] Clinic [facility] Hospital, KYSed Rate70 mmHigh0 - 20 mmMercy Health- [place], [place] VANCOMYCIN, RANDOMon 55-31-0957BZC Coag (Bld) [Relative time]7.4 ug/mLHunlock Creek, KYComment on above:Higher trough serum vancomycin concentrations of 15-20 ug/mL are recommended for complicated infections such as bacteremia, endocarditis, osteomyelitis, meningitis, and hospital acquired pneumonia. Vancomycin,Randomon 96-86-0235Aemgtafvsg8.4 ug/mLNormalMercy Health St. Joseph Warren HospitalComment on above:Result Comment: Higher trough serum vancomycin concentrations of 15-20 ug/mL are recommended for complicated infections such as bacteremia, endocarditis, osteomyelitis, meningitis, and hospital acquired pneumonia.Performed By: #### CBC, PT, CMPX, MG, ANNIE, VNCR, IOCAL #### [employer] [address] [place] [address] [phone] Regional Forester: EZEQUIEL Gonzalezate last dose,NOT REPORTEDNoMercy Health Urbana HospitalComment on above:Performed By: #### CBC, PT, CMPX, MG, ANNIE, VNCR, IOCAL #### [employer] [address] [place] [address] [phone] Regional Forester: EZEQUIEL Gonzalezose amount,NOT REPORTEDNoMercy Health Urbana HospitalComment on above:Performed By: #### CBC, PT, CMPX, MG, ANNIE, VNCR, IOCAL #### [employer] [address] [place] [address] [phone] Regional Forester: Dylon Gonzalez last dose,NOT REPORTEDNoMercy Health Urbana HospitalComment on above:Performed By: #### CBC, PT, CMPX, MG, ANNIE, VNCR, IOCAL #### [employer] [address] [place] [address] [phone] Regional Forester: ALIX Gonzalez KNEE LEFT (3 VIEWS)on 57-11-7385YB KNEE LEFT (3 VIEWS)EXAMINATION: THREE XRAY VIEWS OF THE LEFT KNEE [...] Signed by: Jorge Wang MD 12/15/18 Final resultNoMercy Health Urbana HospitalEXAMINATION: THREE XRAY VIEWS OF THE LEFT KNEE [...] orthopedic hardware identified. No lucency is identified surr ounding the orthopedic hardware. There is no joint effusion evident.[facility] HospitalHarsha Mhpn Incoming Radiant Results From [employer] - 12/15/2018 5:02 PM EDT EXAMINATION: THREE [...] No radiographic findings to suggest acute osteomyelitis. xzoopsSAINT JOHN'S AUR[facility], DAIANAMarked soft tissue swelling with large wound along the medial aspect of the left knee. There are several adjacent lucencies within the soft tissue concerning for soft tissue gas. No radiographic findings to suggest acute osteomyelitis.[facility]ercGadsden Community Hospital, KYHUMERUS LEFTon 11-34-9967CUCCZUBCommunity Regional Medical CenterDepartment of Pqgnxkdhn[address] [facility] [place] [address] Patien t Name: CARLY MARCELINO : 1940Sex: FAge: Race: WhiteMRN: [id number]. Location: 84Patient Status: OVisit #: [id number] Date: 08/22/2017 12:10:00 PMCompleted Date: 08/22/2017 12:43 PMRequesting Provider: ANIKET GUDINO Attending Provider: ANIKET GUDINO Report Copy To: Signs & Symptoms: S49.92XA Unsp injury of left shoulder and upper arm, init encntr R15Cqbolxe: AthenaComments: , Views (X-RAY, HUMERUS): AP, Lateral , Views (X-RAY, HUMERUS): AP, Lateral , , , Ordering Provider - ANIKET GUDINO , Exam: HUMERUS LEFTAccession #: [id number] HUMERUS LEFT, HUMERUS LEFT 08/22/2017 11:26 AM EDT SIGNS AND SYMPTOMS: S49.92XA Unsp injury of left shoulder and upper arm, init encntr I10 TECHNOLOGIST COMMENTS: ortho f/u for left upper arm (accession [id number]), repeat left humerus xrays outof splint (accession [id number]) QUESTION FOR THE RADIOLOGIST: , Views (X-RAY, HUMERUS): AP, Lateral ,Views (X-RAY, HUMERUS): AP, Lateral , , , Ordering Provider - ANIKET GUDINO , PROTOCOL: AP(PA) and Lateral views were obtained. COMPARISON: August 07, 2017 FINDINGS: Soft tissues:Overlying splint has been exchanged on the 1124 hour film and then removed on the 12:30 film Bon es:Posteriorly offset and slightly angulated comminuted distal humeral shaft fracturewith still limited healing responseOn the 1230 hours film there may be slightly greater posterior offset and varusangular deformity with some adjacent edema Joints:Reverse TSA in good alignment similar to priorElbow intact IMPRESSION: Distal humeral shaft fracture and displaced alignment as above with limited healing Electronically signed by:Radames Johnson. Transcribed by: [email or web address], User Resident: Electronically Signed by: RADAMES JOHNSON @ 08/22/2017 01:06 [facility] CenterComment on above:Order Comment: , Views (X-RAY, HUMERUS): AP, Lateral , Views (X-RAY, HUMERUS): AP, Lateral , , , Ordering Provider - ANIKET GUDINO , HUMERUS [facility] CenterDepartment of Lbrkjysxt[address] [place] [address] Patien t Name: CARLY MARCELINO : 1940Sex: FAge: Race: WhiteMRN: [id number]. Location: 84Patient Status: Date: 08/22/2017 11:20:00 AMCompleted Date: 08/22/2017 11:26 AMRequesting Provider: ANIKET GUDINO Attending Provider: Report Copy To: Signs & Symptoms: S49.92XA Unspinjury of left shoulder and upper arm, init encntr U15Enjobck: AthenaComments: , Views (X- RAY, HUMERUS): AP, Lateral , Views (X-RAY, HUMERUS): AP, Lateral , , , Ordering Provider - ANIKET GUDINO , Exam: HUMERUS LEFTAccession #: [id number] HUMERUS LEFT, HUMERUS LEFT 08/22/2017 11:26 AM EDT SIGNS AND SYMPTOMS: S49.92XA Unsp injury of left shoulder and upper arm, init encntr I10 TECHNOLOGIST COMMENTS: ortho f/u for left upper arm (accession [id number]), repeat left humerus xrays out of splint (accession [id number]) QUESTION FOR THE RADIOLOGIST: , Views (X-RAY, HUMERUS): AP, Lateral , Views (X-RAY, HUMERUS): AP, Lateral , , , Ordering Provider - ANIKET GUDINO , PROTOCOL: AP(PA) and Lateral views were obtained. COMPARISON: August 07, 2017 FINDINGS: Soft tissues:Overlying splint has been exchanged on the 1124 hour film and then removed on the 12:30 film Bones:Posteriorly offsetand slightly angulated comminuted distal humeral shaft fracturewith still limited healing responseOn the 1230 hours film there may be slightly greater posterior offset and varus angular deformity with some adjacent edema Joints:Reverse TSA in good alignment similar to priorElbow intact IMPRESSION: Distal humeral shaft fracture and displaced alignment as above with limited healing Electronically signed by:Radames Johnson. Transcribed by: [email or web address], User Resident: Electronically Signed by: RADAMES JOHNSON @ 08/22/2017 01:06 [facility] CenterComment on above:Order Comment: , Views (X-RAY, HUMERUS): AP, Lateral , Views (X-RAY, HUMERUS): AP, Lateral , , , Ordering Provider - ANIKET GUDINO , Discharge Summaryon [id number] SummaryMR#: [id number] 2[facility] Pt. Name: Carly Marcelino Admitted: 08/07/2017 Discharged: 08/10/2017 Date of : 1940 Physician: Andres Walker M.D. DISCHARGE SUMMARYDISCHARGING PHYSICIAN: Andres Walker M.D.PRIMARY CARE PHYSICIAN: Hardeep Mckenzie D.O.PRIMARY DIAGNOSES:1. Left humerus fracture secondary to fall.2. T10 fracture acute to subacute cough of unknown etiology.3. Hypertension, controlled.SECONDARY DIAGNOSES:1. Left lower extremity deep venous thrombosis of unknown etiology, diagnosed in early July.2. Asthma, well controlled.3. Seizure disorder.4. Mild hyponatremia, resolved.5. Left eye blindness.CONSULTS: Orthopedics.HOSPITAL COURSE: This is a 77-year-old female admitted to [facility] secondaryto left humerus fracture due to mechanical fall. Ortho was consulted. Anx-ray was ordered and they decided to put cast and sling and treatedconservatively. Her left upper extremity not weightbearing. MRI of thelumbar spine was also done, revealed degenerative sera nges. CT scan of thespine was also done, [...] mg once daily.5. Multivitamin tablet once daily.6. [employer]-3 fatty acids 1000 mg once daily.7. Percocet [...] after discharge.2. Follow up with Dr. Gudino, Ortho trauma within 1 week.3. Follow up with Dr. Hathaway, Ortho Spine within 2 weeks.4. Left upper extremity [...] personal documentation from me. Date Dict: 08/10/2017/03:07 P/Dorie HardinteTrans: 08/11/2017 05:33 A/EmiN_JN:[id number] Health Kings Mills HospitalBASIC METABOLIC PANELon 83-77-2977Uyifcpl7.8 mg/dLNormal8.6-10.3The [facility] Cleveland WestComment on above:Order Comment: No: Do not add to previous drawPerformed By: #### 09249, 60573 ####[facility] [place] [address], OHUJnmzqdiw34 mmol/MRtgepm36-833One [facility] Cleveland WestComment on above:Order Comment: No: Do not add to previous drawPerformed By: #### 55687, 75508 ####[facility] [place] [address], UQKUK368 mmol/PRgdhee68-57Mrs [facility] Cleveland WestComment on above:Order Comment: No: Do not add to previous drawPerformed By: #### 63486, 94595 ####[facility] [place] [address], USACreatinine0.68 mg/dLNormal 0.60-1.20The [facility] Cleveland WestComment on above:Order Comment: No: Do not add to previous drawPerformed By: #### 60060, 73926 ####[facility] [place] [place] [address], USAeGFR (black) mL/min/{1.73_m2}Normal>60The [facility] Cleveland WestComment on above:Order Comment: No: Do not add to previous drawResult Comment: Calculation may not be valid for patients over 70 yearsPerformed By: #### 65006, 02742 ####[facility] [place] [address], [place] eGFR (non-black)mL/min/{1.73_m2}Normal>60The [facility] Comment on above:Order Comment: No: Do not add to previous drawResult Comment: Calculation may not be valid for patients over 70 yearsPerformed By: #### 31935, 73185 ####[facility] [facility] [place] [address], USAGlucose mass tafq059 mg/tEKegf37-611Qui [facility] WestComment on above:Order Comment: No: Do not add to previous drawPerformed By: #### 32855, 17243 ####[facility] [facility] [place] [address], USAPotassium molar conc3.9 mmol/LNormal3.5-5.1The [facility] WestComment on above:Order Comment: No: Do not add to previous drawPerformed By: #### 03907, 95033 ####[facility] [facility] [place] [address], CPVIifrlw559 mmol/UPxs991-580 The [facility] Cleveland WestComment on above:Order Comment: No: Do not add to previous drawPerformed By: #### 93207, 73815 ####[facility] [place] [address], USAUrea kdhgunot31 mg/dL Normal7-25The [facility] Cleveland WestComment on above:Order Comment: No: Do not add to previous drawPerformed By: #### 67347, 18801 ####[facility] [place], [place] [address]E.[place] [address], USACBC COMPLETE BLOOD COUNTon 46-86-5924Aqtleudcsgq distribution width Auto Ratio (RBC)14.3 %Normal 11.5-15.0The [facility] Cleveland WestComment on above:Order Comment: No: Do not add to previous drawPerformed By: #### 20055, 89078 ####[facility] [place] [address], R[facility] HOSPITALErythrocytes (RBC) 3.32 10*6/uLLow3.80-5.00The [facility] WestComment on above: Order Comment: No: Do not add to previous drawPerformed By: #### 08695, 92131 ####[facility] [place] [address], [place] Erythrocytes (RBC)0 %Normal0-0The [facility] WestComment on above:Order Comment: No: Do not add to previous drawPerformed By: #### 09579, 78222 ####[facility] [place] [address], R[facility]AL HOSPITALHematocrit (HCT)29.6 %Low36.0-45.0The [facility] WestComment on above:Order Comment: No: Do not add to previous drawPerformed By: #### 56118, 33792 ####[facility] [place] [address], R[facility]AL HOSPITALHemoglobin mass conc (Bld)9.6 g/dLLow12.0-15.0The [facility] WestComment on above:Order Comment: No: Do not add to previous drawPerformed By: #### 67508, 50147 ####[facility] [facility] [place] [address], KEFFDR79.9 ecTjqdwj68.0-33.0 The [facility] WestComment on above:Order Comment: No: Do not add to previous drawPerformed By: #### 27304, 02341 ####[facility] [place] [address].[place] [address], ROO[facility]EL[facility] GENERAL HOSPITALMCHC mass conc (RBC)32.4 g/oOQdmvuw43.0-35.0The [facility] WestComment on above:Order Comment: No: Do not add to previous drawPerformed By: #### 69461, 42685 ####[address] [place] [address], [facility] MCV89.2 hPWimhyb27.0-98.0The [facility] WestComment on above:Order Comment: No: Do not add to previous drawPerformed By: #### 58948, 79859 ####[address] [place] [address], ROOSEVELT GENERAL HOSPITALPLAT HXG379 10*3/cHElcaaa405-226Oqt [facility] WestComment on above:Order Comment: No: Do not add to previous drawPerformed By: #### 32015, 84741 ####[address] [place] [address], ROO[facility]VEL[facility] GENERAL HOSPITALWBC (Leukocytes)6.86 10*3/uLNormal4.00-10.60The [facility] WestComment on above:Order Comment: No: Do not add to previous drawPerformed By: #### 56955, 35998 ####[address] [place] [address], USABASIC METABOLIC PANELon 97-98-8681Pefzvff2.2 mg/dLLow8.6-10.3The [facility] Comment on above:Order Comment: No: Do not add to previous drawPerformed By: #### 29355, 63517 ####[facility] [place] [address], YAWSbrxfoxe132 mmol/RHjilmo29-781Qfz [facility] WestComment on above:Order Comment: No: Do not add to previous draw Performed By: #### 49532, 31877 ####[facility] [place] [address], OEETZ203 mmol/ICeosyf06-67Obe [facility] WestComment on above:Order Comment: No: Do not add to previous drawPerformed By: #### 86222, 87225 ####[facility] [place] [address], USACreatinine0.78 mg/dLNormal0.60-1.20The [facility] WestComment on above:Order Comment: No: Do not add to previous drawPerformed By: #### 78552, 09361 ####[facility] [place] [address], USAeGFR (black) mL/min/{1.73_m2}Normal>60The [facility] WestComment on above:Order Comment: No: Do not add to previous drawResult Comment: Calculation may not be valid for patients over 70 yearsPerformed By: #### 15531, 10311 ####[facility] [place] [address], [place] eGFR (non-black)mL/min/{1.73_m2}Normal>60The [facility] Comment on above:Order Comment: No: Do not add to previous drawResult Comment: Calculation may not be valid for patients over 70 yearsPerformed By: #### 61557, 36854 ####[facility] [place] [address], USAGlucose mass conc99 mg/gNCitzjq89-000Rxh [facility] WestComment on above:Order Comment: No: Do not add to previous drawPerformed By: #### 57137, 88213 ####[facility] [place] [address], USAPotassium molar conc3.7 mmol/LNormal3.5-5.1The [facility] WestComment on above:Order Comment: No: Do not add to previous drawPerformed By: #### 90544, 73789 ####[facility] [place] [address], ILNUnnvhn008 mmol/ZXsw231-332 The [facility] WestComment on above:Order Comment: No: Do not add to previous drawPerformed By: #### 56952, 27691 ####[facility] [place] [address], USAUrea yjxkfmcs27 mg/dL Normal7-25The [facility] WestComment on above:Order Comment: No: Do not add to previous drawPerformed By: #### 28863, 48776 ####[facility] [facility] [place] [address], USACBC COMPLETE BLOOD COUNTon 53-60-3263Yfxcnhcgqkx distribution width Auto Ratio (RBC)14.4 %Normal 11.5-15.0The [facility] WestComment on above:Order Comment: No: Do not add to previous drawPerformed By: #### 56868, 65510 ####[facility] [place] [address], USAErythrocytes (RBC) 3.43 10*6/uLLow3.80-5.00The [facility] WestComment on above: Order Comment: No: Do not add to previous drawPerformed By: #### 77472, 73136 ####[facility] [facility] [place] [address], [facility] Erythrocytes (RBC)0 %Normal0-0The [facility] WestComment on above:Order Comment: No: Do not add to previous drawPerformed By: #### 67166, 66270 ####[facility] [place] [address], R[facility]AL HOSPITALHematocrit (HCT)31.0 %Low36.0-45.0The [facility] WestComment on above:Order Comment: No: Do not add to previous drawPerformed By: #### 16216, 91098 ####[facility] [place] [address], R[facility]AL HOSPITALHemoglobin mass conc (Bld)10.0 g/dLLow12.0-15.0The [facility] WestComment on above:Order Comment: No: Do not add to previous drawPerformed By: #### 81223, 87084 ####[facility] [facility] [place] [address], HGKUPM14.2 mtLskpgv38.0-33.0 The [facility] WestComment on above:Order Comment: No: Do not add to previous drawPerformed By: #### 06685, 78482 ####[facility] [facility] [place] [address], R[facility] GENERAL HOSPITALMCHC mass conc (RBC)32.3 g/fSNyzhhm29.0-35.0The [facility] WestComment on above:Order Comment: No: Do not add to previous drawPerformed By: #### 44239, 47656 ####[facility] [facility] [place] [address], [place] MCV90.4 pSPedqxl06.0-98.0The [facility] Hospital Cleveland WestComment on above:Order Comment: No: Do not add to previous drawPerformed By: #### 32100, 46418 ####[facility] [place] [address], USAPLAT CBF755 10*3/fXLabuzg339-223Wys [facility] Cleveland WestComment on above:Order Comment: No: Do not add to previous drawPerformed By: #### 85479, 62846 ####[facility] [place] [address], USAWBC (Leukocytes)6.84 10*3/uLNormal4.00-10.60The [facility] Cleveland WestComment on above:Order Comment: No: Do not add to previous drawPerformed By: #### 25373, 33768 ####[address] [place] [address], USAPORTABLE WRIST LEFT 2 VWS on 23-29-3586FXSTCBYQ WRIST LEFT 2 VWSUniversity of Hendrick Medical Center BrownwoodDepartment of Yzweknnjk[address] [place] [address] [phone] Patien t Name: CARLY MARCELINO : 1940Sex: FAge: Race: WhiteMRN: [id number]. Location: [id number] Status: IVisit #: [id number] Date: 08/09/2017 12:05:00 PMCompleted Date: 08/09/2017 03:26 PMRequesting Provider: MAGDA POSEY Attending Provider: ANDRES GONZALEZ Report Copy To: Signs & Symptoms: Pain ( specify Location)History: Patient history not availableComments: R/O FXExam: PORTABLE WRIST LEFT 2 VWSAccession #: [id number] =====PORTABLE WRIST LEFT 2 VWS 08/09/2017 3:26 PM EDT SIGNS AND SYMPTOMS: Pain ( specify Location) TECHNOLOGIST COMMENTS: Left wrist pain post fall. Known humerus fractuer QUESTION FOR THE RADIOLOGIST: R/O FX PROTOCOL: AP(PA) and Lateral views were obtained. COMPARISON: None FINDINGS: Soft tissues:Sw ellingPresumed old metallic foreign body along the dorsal hand just radial to the index finger metacarpal Bones:No acute bony abnormality Joints:Scattered osteoarthritis particularly severe at the thumb CMC joint with the thumb metacarpal impacted into the trapeziumLikely old thumb ligament injury I MPRESSION: * No definite fracture* Distortion of the thumb CMC joint is likely a function of severechronic osteoarthritis Electronically signed by:Radames Johnson. Transcribed by: [id number], User Resident: Electronically Signed by: RADAMES JOHNSON @ 08/09/2017 03:42 PMNormalThe [facility] Hospital Cleveland WestComment on above:Order Comment: R/O FXBASIC METABOLIC PANELon 41-58-7511Eqvhbkq7.6 mg/dL Normal8.6-10.3The [facility] Cleveland WestComment on above:Order Comment: No: Do not add to previous drawPerformed By: #### 50996, 31883 ####[facility] [place] [address], [place] Occdyzsw577 mmol/HHfkqyp78-144Elk [facility] Cleveland WestComment on above:Order Comment: No: Do not add to previous drawPerformed By: #### 81660, 54828 ####[facility] [place] [address], NZJWB256 mmol/BRbinym06-66Oxw [facility] Cleveland WestComment on above:Order Comment: No: Do not add to previous drawPerformed By: #### 43697, 58004 ####[facility] [place] [address], USACreatinine0.77 mg/dLNormal0.60-1.20The [facility] Cleveland WestComment on above:Order Comment: No: Do not add to previous drawPerformed By: #### 71296, 73736 ####[facility] [place] [address], USAeGFR (black)mL/min/{1.73_m2}Normal>60The [facility] Cleveland WestComment on above:Order Comment: No: Do not add to previous drawResult Comment: Calculation may not be valid for patients over 70 years Performed By: #### 55883, 20877 ####[facility] [place] [address], USAeGFR (non-black)mL/min/{1.73_m2}Normal>60The [facility] Cleveland WestComment on above:Order Comment: No: Do not add to previous drawResult Comment: Calculation may not be valid for patients over 70 yearsPerformed By: #### 75549, 69199 ####[facility] [place] [address], USAGlucose mass conc91 mg/dLNormal 70-100The [facility] Cleveland WestComment on above:Order Comment: No: Do not add to previous drawPerformed By: #### 70770, 79346 ####[facility] [place] [address], USAPotassium molar conc3.9 mmol/LNormal3.5-5.1The [facility] Cleveland WestComment on above:Order Comment: No: Do not add to previous drawPerformed By: #### 81122, 77361 ####[facility] [place] [address], RTBJxlidg985 mmol/GMbzidw537-430Orh [facility] Comment on above:Order Comment: No: Do not add to previous drawPerformed By: #### 53003, 44736 ####[facility] [place] [address], USAUrea ryuukncw95 mg/dLNormal7-25The [facility] WestComment on above:Order Comment: No: Do not add to previous draw Performed By: #### 11080, 64916 ####[facility] [place] [address], [facility] HOSPITALCB COMPLETE BLOOD COUNTon 08-08-2017 Erythrocyte distribution width Auto Ratio (RBC)14.3 %Edovka14.5-15.0The [facility] Cleveland WestComment on above:Order Comment: No: Do not add to previous drawPerformed By: #### 96599, 10899 ####[facility] [facility] [place] [address], R[facility]AL HOSPITALErythrocytes (RBC)3.66 10*6/uLLow3.80-5.00The [facility] Cleveland WestComment on above:Order Comment: No: Do not add to previous drawPerformed By: #### 64212, 80273 ####[facility] [place] [address], [facility] Erythrocytes (RBC)0 %Normal0-0The [facility] WestComment on above:Order Comment: No: Do not add to previous drawPerformed By: #### 30506, 96136 ####[place] [address] [place] [address], R[facility]AL HOSPITALHematocrit (HCT)32.6 %Low36.0-45.0The [facility] Cleveland WestComment on above:Order Comment: No: Do not add to previous drawPerformed By: #### 48495, 70784 ####[facility] [place] [address], R[facility] HOSPITALHemoglobin mass conc (Bld)10.7 g/dLLow12.0-15.0The [facility] WestComment on above:Order Comment: No: Do not add to previous drawPerformed By: #### 12424, 94986 ####[facility] [place] [address], AMPWGF03.2 rhJkrubm15.0-33.0 The [facility] Cleveland WestComment on above:Order Comment: No: Do not add to previous drawPerformed By: #### 71887, 24706 ####[facility] [facility] [place] [address], [facility] – TULSAHC mass conc (RBC)32.8 g/uBZivabc85.0-35.0The [facility] WestComment on above:Order Comment: No: Do not add to previous drawPerformed By: #### 02652, 69629 ####[facility] [facility] [place] [address], [facility] MCV89.1 sCRqegea44.0-98.0The [facility] WestComment on above:Order Comment: No: Do not add to previous drawPerformed By: #### 02374, 53806 ####[facility] [place] [address].[place] [address], R[facility]AL HOSPITALPLAT KFJ145 10*3/qIMqdwvq202-091Pey [facility] Cleveland WestComment on above:Order Comment: No: Do not add to previous drawPerformed By: #### 47304, 88043 ####[facility] [facility] [place] [address], R[facility]AL HOSPITALWBC (Leukocytes)6.43 10*3/uLNormal4.00-10.60The [facility] WestComment on above:Order Comment: No: Do not add to previous drawPerformed By: #### 94779, 17496 ####[address] [place] [address], [facility] HOSPITALMRI THORACIC SPINE WO CONTRASTon 06-26-6189HON THORACIC SPINE WO CONTRASTUnProMedica Toledo HospitalDepartment of Sfxttytsj[address] [place] [address] [phone] Kayy t Name: CARLY MARCELINO : 1940Sex: FAge: Race: WhiteMRN: [id number]. Location: [id number] Status: IVisit #: [id number] Date: 08/08/2017 5:45:00 AMCompleted Date: 08/08/2017 05:12 PMRequesting Provider: ANIKET BENAVIDES Attending Provider: ANDRES GONZALEZ Report Copy To: Signs & Symptoms: TraumaHistory: Patient history not availableComments: R/O FractureExam: MRI THORACIC SPINE WO CONTRASTAccession #: [id number] ====MRI THORACIC SPINE WO CONTRAST 08/08/2017 5:12 PM EDT SIGNS AND SYMPTOMS: Trauma TECHNOLOGIST COMMENTS: Ortho transfer from [facility] Patient fell and landed on left side. [...] fracture. No definite tearing of the anterior longi tudinal ligamentthe but may be slightly thickened and [...] findings. Electronically signed by:Alyssa Dwyer. Transcribed by: [id number], User Resident: ROSS MITTALElectronically Signed by: ALYSSA DWYER @ 08/09/2017 02:44 PMI personally read this/these film(s) with this residentNoOhioHealth Riverside Methodist HospitalComment on above: Order Comment: R/O Nholoraw1B CT LUMBAR SPINE WO CONTRASTon 24-92-63281U CT LUMBAR SPINE WO CONTRASTUnProMedica Toledo HospitalDepartment of Nahguhhrn[address] [place] [phone] Patien t Name: CARLY MARCELINO : 1940Sex: FAge: Race: WhiteMRN: [id number]. Location: EMERPatient Status: IVisit #: [id number] Date: 08/07/2017 5:50:00 AMCompleted Date: 08/07/2017 06:15 AMRequesting Provider: ARTEM CHARLTON Attending Provider: ARTEM CHARLTON Report Copy To: Signs & Symptoms: Back Pain (specify level)History: Patient history not availableComments: R/O Fractures, If Other selected, state reason for examExam: 3D CT LUMBAR SPINE WO CONTRASTAccession #: [id number] 3D CT LUMBAR SPINE WO CONTRAST 08/07/2017 6:15 AM EDT TECHNOLOGIST COMMENTS: Pt is transfer from outside hospital s/p fall. Pt states shewas told she has T-10 fx. Pt unable [...] throughout the lumbar spine with approximately 6 mmanterolisthesis of L4 on L5 which is likely secondary to the facet hypertrophy and possible pars defect on the right side at L4-5. No fractures or dislocations are seen. Evidence of prior right-sidedL5 laminotomy defect. The paraspinous soft tissues are within normal limits. The visualized lung parenchyma shows no acute abnormality. The visualized abdominal and pelvic viscera is unremarkable. Bilateral SI joint degenerative disease. Atherosclerotic calcifications of the abdominal aorta and itsbranches. 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 Approved by:Ross Mittal on 08/07/2017 7:51 AM EDT. I, Myrna Hernandez, have reviewed the images and report and concur with these findings. Electronically signed by:Myrna Hernandez. Transcribed by: [id number], User Resident: ROSS MITTALElectronically Signed by: MYRNA HERNANDEZ @ 08/07/2017 12:07PMI personally read this/these film(s) with this [facility] Medical CenterComment on above:Order Comment: R/O Fractures, If Other selected, state reason for exam3D CT THORACIC SPINE WO CONTRASTon 30-86-05275K CT THORACIC SPINE WO CONTRASTUnProMedica Toledo HospitalDepartment of [address]zxyalngd[address] [place] [address] Patien t Name: CARLY MARCELINO : 1940Sex: FAge: Race: WhiteMRN: [id number]. Location: EMERPatient Status: IVisit #: [id number] Date: 08/07/2017 5:35:00 AMCompleted Date: 08/07/2017 06:15 AMRequesting Provider: ARTEM CHARLTON Attending Provider: ARTEM CHARLTON Report Copy To: Signs & Symptoms: FractureHistory: Patient history not availableComments: R/O FracturesExam: 3D CT THORACIC SPINE WO CONTRASTAccession #: [id number] ====3D CT THORACIC SPINE WO CONTRAST 08/07/2017 6:15 AM EDT TECHNOLOGIST COMMENTS: Pt is transfer from outside hospital s/p fall. Pt states she was told she has T-10 fx. Pt unable to raise arms. QUESTION FOR RADIOLOGIST: R/O Fractures PROTOCOL: Axial CT images of the spine were obtained without IV co ntrast. TECHNIQUE: Multi detector CT axial slices of the thoracic spine are obtained from the C7 tothe L1 vertebral body without IV contrast. Volumetric acquisition sagittal, coronal, and 3-D reconstructions were performed and reviewed on a separate workstation. Appropriate CT dose lowering techniques were utilized. COMPARISON: None FINDINGS: There is preservation of the vertebral body heights. There is diffuse disc space narrowing. There are multiple anterior bridging osteophytes. There is anarea of cortical irregularity and possible nondisplaced fracture line involving the anterior aspectof the T10 vertebral body. There is some increased sclerosis along the apparent fracture line. The a lignment of the thoracic spine is normal. The [...] the images and report and concur with thesefindings. Electronically signed by:Myrna Hernandez. Transcribed by: [id number], User Resident:ROSS MITTALElectronically Signed by: MYRNA HERNANDEZ @ 08/07/2017 11:58 AMI personally read this/these film(s) with this residentToledo HospitalComment on above:Order Comment: R/O Xynxfimsr1E CT UPPER EXTREMITY WO CONTRAST LEFTon 27-32-89667W CT UPPER EXTREMITY WO CONTRAST CHELSEA HOSPITALUnProMedica Toledo HospitalDepartment of Gzvntrtxs[address] [place] [address] Patien t Name: CARLY MARCELINO : 1940Sex: FAge: Race: WhiteMRN: [id number]. Location: EMERPatient Status: IVisit #: [id number] Date: 08/07/2017 5:50:00 AMCompleted Date: 08/07/2017 06:17 AMRequesting Provider: ARTEM CHARLTON Attending Provider: ARTEM CHARLTON Report Copy To: Signs & Symptoms: FractureHistory: Patient history not availableComments: R/O Fractures, left elbow CTExam: 3D CT UPPER EXTREMITY WO CONTRAST LEFTAccession #: [id number] 3D CT UPPER EXTREMITY WO CONTRAST LEFT 08/07/2017 [...] No elbow articular involvement.4. There may be somebrachialis muscle interposition between the fracture fragments. Electronically signed by:Radames Johnson. Transcribed by: [id number], User Resident: Electronically Signed by: RADAMES JOHNSON @ 08/07/2017 11:27 AMNormalThe [facility] Hospital [facility] WestComment on above:Order Comment: R/O Fractures, left elbow CTBASIC METABOLIC PANELon 10-26-8367Lbdvsyd 8.4 mg/dLLow8.6-10.3The [facility] WestComment on above: Performed By: #### 97235, 31585 ####[facility] [place] [address], HRZOgxqpylj144 mmol/JMlvcxc74-513Sch [facility] WestComment on above:Performed By: #### 91803, 74682 ####[facility] [place] [address], [place] CO228 mmol/YTztxfq57-17Vgf [facility] WestComment on above: Performed By: #### 55997, 28316 ####[facility] [place] [address], USACreatinine0.75 mg/dLNormal0.60-1.20The [facility] Cleveland WestComment on above:Performed By: #### 42734, 87216 ####[facility] [place] [address], USAeGFR (black)mL/min/{1.73_m2}Normal>60The [facility] Cleveland WestComment on above:Result Comment: Calculation may not be valid for patients over 70 yearsPerformed By: #### 01359, 15993 ####[facility] [place] [address], USAeGFR (non-black)mL/min/{1.73_m2} Normal>60The [facility] WestComment on above:Result Comment: Calculation may not be valid for patients over 70 yearsPerformed By: #### 15437, 46009 ####[facility] [facility] [place] [address], [facility] HOSPITALGlucose mass conc88 mg/rVLkckza87-741Uku [facility] WestComment on above:Performed By: #### 20204, 91066 ####[address] [place] [address], [facility] HOSPITALPotassium molar conc3.8 mmol/LNormal3.5-5.1The [facility] WestComment on above: Performed By: #### 22867, 13187 ####[address] [place] [address], RIWDaltti094 mmol/VAmz299-990Uie [facility] WestComment on above:Performed By: #### 41227, 63962 ####[address] [place] [address], [facility] Urea dxuhflny14 mg/dLNormal7-25The [facility] WestComment on above:Performed By: #### 90271, 52530 ####[address] [place] [address], [facility] HOSPITALCB W/DIFFon 19-40-4121FYC BASOPHILS0.0 10*3/uLNormal0.0-0.2The [facility] WestComment on above:Performed By: #### 98075 ####[address] [place] [address], [facility] HOSPITALABS IMM GRANS0.0 10*3/uLNormal0.0-0.2The [facility] WestComment on above:Performed By: #### 70253 ####[address] [place] [address], [facility] Basophils Auto #/vol (Bld)0.4 %Normal0.0-1.0The [facility] Cleveland WestComment on above:Performed By: #### 94318 ####[facility] [facility] [place] [address], R[facility] HOSPITALEosinophils0.1 10*3/uLNormal 0.0-0.5The [facility] WestComment on above:Performed By: #### 58864 ####[facility] [facility] [place] [address], R[facility] HOSPITALEosinophils/100 leukocytes0.8 %Normal0.0-6.0The [facility] Cleveland WestComment on above:Performed By: #### 46346 ####[facility] [facility] [place] [address], R[facility]AL HOSPITALErythrocyte distribution width Auto Ratio (RBC)14.3 %Ahzkie46.5-15.0The [facility] Cleveland WestComment on above:Performed By: #### 73699 ####[address] [place] [address], R[facility] HOSPITALErythrocytes (RBC)0 %Normal0-0The [facility] WestComment on above:Performed By: #### 44837 ####[address] [place] [address], [facility] Erythrocytes (RBC)3.79 10*6/uLLow3.80-5.00The [facility] WestComment on above:Performed By: #### 81732 ####[address] [place] [address], [facility] HOSPITALHematocrit (HCT)34.0 %Low36.0-45.0 The [facility] Cleveland WestComment on above:Performed By: #### 26846 ####[address] [place] [address], [facility] Hemoglobin mass conc (Bld)11.0 g/dLLow12.0-15.0The [facility] WestComment on above:Performed By: #### 01799 ####[address] [place] [address], [facility] HOSPITALIMMATURE GRANS0.2 %Normal0.0-1.0 The [facility] Cleveland WestComment on above:Performed By: #### 06057 ####[facility] [facility] [place] [address], [facility] Lymphocytes1.3 10*3/uLNormal1.2-4.0The [facility] Comment on above:Performed By: #### 43124 ####[facility] [facility] [place] [address], R[facility] HOSPITALLymphocytes/100 wfsdrzbjax53.6 % Low20.0-45.0The [facility] Cleveland WestComment on above:Performed By: #### 23738 ####[facility] [facility] [place] [address], TGKVHI28.0 tsIrjsxq47.0-33.0The [facility] Comment on above:Performed By: #### 07457 ####[facility] [facility] [place] [address], [facility] HOSPITALMCHC mass conc (RBC)32.4 g/dL Sknjdq39.0-35.0The [facility] WestComment on above:Performed By: #### 81290 ####[facility] [facility] [place] [address], LCTHTV36.7 tQAgalcf70.0-98.0The [facility] Comment on above:Performed By: #### 82939 ####[facility] [facility] [place] [address], [facility] HOSPITALMonocytes0.6 10*3/uLNormal0.1-1.0 The [facility] WestComment on above:Performed By: #### 25808 ####[facility] [facility] [place] [address], [facility] MONOS7.6 %Normal5.0-12.0The [facility] WestComment on above: Performed By: #### 80848 ####[facility] [place] [address].[place] [address], [facility] HOSPITALNeutrophils6.4 10*3/uLNormal1.6-7.6The [facility] WestComment on above:Performed By: #### 61429 ####[address] [place] [address], [facility] HOSPITALNeutrophils/100 .4 %High40.0-72.0The [facility] Cleveland WestComment on above:Performed By: #### 31260 ####[address] [place] [address], USAPLAT SEQ924 10*3/xPNouuod013-024Xgk [facility] WestComment on above:Performed By: #### 56664 ####[address] [place] [address], [facility] WBC (Leukocytes)8.44 10*3/uLNormal4.00-10.60The [facility] WestComment on above:Performed By: #### [address] ####[place] [address], [facility] HOSPITALELBOW LEFT 2 Son 21-98-6394RSBNP LEFT 2 SUniLancaster Municipal HospitalDepartment of Dggwjcrrk[address] [place] [phone] Patien t Name: CARLY MARCELINO : 1940Sex: FAge: Race: WhiteMRN: [id number]. Location: EMERPatient Status: IVisit #: [id number] Date: 08/07/2017 5:35:00 AMCompleted Date: 08/07/2017 06:30 AMRequesting Provider: ARTEM CHARLTON Attending Provider: ARTEM CHARLTON Report Copy To: Signs & Symptoms: AbrasionHistory: Patient history not availableComments: R/O FXExam: ELBOW LEFT 2 VWSAccession #: [id number] =SHOULDER LEFT, PORTABLE HUMERUS LEFT, ELBOW LEFT 2 VWS, HUMERUS LEFT 08/07/2017 6:30 AM EDT SIGNS AND SYMPTOMS: Abrasion TECHNOLOGIST COMMENTS: s/p fall, pain distal humerus patient came from another hospital, patientin cast- unable to unbend arm, patient had CT scan of elbow here (accession [id number]), post reduction left humerus (accession [id number]), s/p fall, pain distal humerus patient came from another hospital, patient in cast- unable to unbend arm, patient had CT scan of elbow here (accession [id number]), s/p fall, pain distal humerus patient came from another hospital, patient in cast- unable to unbend arm, patient had CT scan of elbow here (accession [id number]) QUESTION FOR THE RADIOLOGIST: R/O FX PROTOCOL: AP,Grashey and Axillary views were obtained. (accession [id number]), AP(PA) and Lateral views were obtained. (accession [id number]), AP(PA) and Lateral views were obtained. (accession [id number]), AP(PA)and Lateral views were obtained. (accession [id number]) COMPARISON: None FINDINGS: Portable left humerus: Overlying splint has been exchanged with improved alignment following closed reduction Left shoulder: Reverse TSA is intact Left humerus: Comminuted oblique distal shaft humeral fracture with displacement, including varus angulation and posterior offset Left elbow: Intact IMPRESSION: Distal humeral fracture with subsequent closed reduction and splinting and improved alignment from prior Electronically signed by:Radames Johnson. Transcribed by: [id number], User Resident: Electronically Signed by: RADAMES JOHNSON @ 08/07/2017 12:40 PMNChildren's Hospital of ColumbusComment on above:Order Comment: R/O FXNOY Levi 65-15-0919KMEAGLW [facility] CenterDepartment of Gzrwgmfwu[address] [place] [address] Patien t Name: CARLY MARCELINO : 1940Sex: FAge: Race: WhiteMRN: [id number]. Location: EMERPatient Status: IVisit #: [id number] Date: 08/07/2017 5:35:00 AMCompleted Date: 08/07/2017 06:30 AMRequesting Provider: ARTEM CHARLTON Attending Provider: ARTEM CHARLTON Report Copy To: Signs & Symptoms: AbrasionHistory: Patient history not availableComments: R/O FXExam: HUMERUS LEFTAccession #: [id number] [address]ER LEFT, PORTABLE HUMERUS LEFT, ELBOW LEFT 2 VWS, HUMERUS LEFT 08/07/2017 6:30 AM EDT SIGNS AND SYMPTOMS: Abrasion TECHNOLOGIST COMMENTS: s/p fall, pain distal humerus patient came from another hospital, patient in cast- unable to unbend arm, patient had CT scan of elbow here (accession [id number]), post reduction left humerus (accession [id number]), s/p fall, pain distal humerus patient came from another hospital, patient in cast- unable to unbend arm, patient had CT scan of elbow here (accession [id number]), s/p fall, pain distal humerus patient came from another hospital, patient in cast- unable to unbend arm,patient had CT scan of elbow here (accession [id number]) QUESTION FOR THE RADIOLOGIST: R/O FX PROTOCOL: AP,Grashey and Axillary views were obtained. (accession [id number]), AP(PA) and Lateral views were obtained. (accession [id number]), AP(PA) and Lateral views were obtained. (accession [id number]), AP(PA) andLateral views were obtained. (accession [id number]) COMPARISON: None FINDINGS: Portable left humerus: Overlying splint has been exchanged with improved alignment following closed reduction Left shoulder: Reverse TSA is intact Left humerus: Comminuted oblique distal shaft humeral fracture with displacement, including varus angulation and posterior offset Left elbow: Intact IMPRESSION: Distal humeral fracture with subsequent closed reduction and splinting and improved alignment from prior Electronically signed by:Radames Johnson. Transcribed by: [id number], User Resident: Electronically Signed by: RADAMES JOHNSON @ 08/07/2017 12:40 PMNormalThe [facility] Hospital Cleveland WestComment on above:Order Comment: R/O FXMRI LUMBAR SPINE WO CONTRAST on 25-67-9004ZOH LUMBAR SPINE WO CONTRASTUnProMedica Toledo HospitalDepartment of Ctxczvdy[address] [place] [address] Patien t Name: CARLY MARCELINO : 1940Sex: FAge: Race: WhiteMRN: [id number]. Location: [id number] Status: IVisit #: [id number] Date: 08/07/2017 8:05:00 AMCompleted Date: 08/07/2017 06:19 PMRequesting Provider: ANIKET BENAVIDES Attending Provider: HAIM HERNANDEZ Report Copy To: Signs & Symptoms: OtherHistory: Patient history not availableComments: R/O FractureExam: MRI LUMBAR SPINE WO CONTRASTAccession #: [id number] =MRI LUMBAR SPINE WO CONTRAST 08/07/2017 6:19 PM [...] alignment. There is preservation of vertebral body heights.The conus terminates at the T12-L1 intervertebral disc [...] mild narrowing the central canal and mild bila teral neural foraminal narrowing. Incidental hemangioma is seen [...] which is likely secondary to facet degenerative disease.At L5-S1: Patient status post right-sided hemilaminotomy. There [...] and concur with these findings. Electronically signed by:Deo. Transcribed by: [email or web address], User Resident: ROSS MITTALElectronically Signed by: MYRNA HERNANDEZ @ 08/08/2017 11:17 AMI personally read this/these film(s) with this residentToledo HospitalComment on above:Order Comment: R/O FracturePORTABLE HUMERUS LEFTon 47-24-8538ZXRWJZZP HUMERUS LEFTUnProMedica Toledo HospitalDepartment of Yjngpqsep[address] [place] [address] Patien t Name: CARLY MARCELINO : 1940Sex: FAge: Race: WhiteMRN: [id number]. Location: [id number] Status: IVisit #: [id number] Date: 08/07/2017 8:05:00 AMCompleted Date: 08/07/2017 09:04 AMRequesting Provider: ANIKET BENAVIDES Attending Provider: HAIM HERNANDEZ Report Copy To: Signs & Symptoms: Pain ( specify Location)History: Patient history not availableComments: R/O FX, post reductionExam: PORTABLE HUMERUS LEFTAccession #: [id number] SHOULDER LEFT, PORTABLE HUMERUS LEFT, ELBOW LEFT 2 VWS, HUMERUS LEFT 08/07/20176:30 AM EDT SIGNS AND SYMPTOMS: Abrasion TECHNOLOGIST COMMENTS: s/p fall, pain distal humerus patient came from another hospital, patient in cast- unable to unbend arm, patient had CT scan of elbowhere (accession [id number]), post reduction left humerus (accession [id number]), s/p fall, pain distal humerus patient came from another hospital, patient in cast- unable to unbend arm, patient had CT scan of elbow here (accession [id number]), s/p fall, pain distal humerus patient came from another hospital, patient in cast- unable to unbend arm, patient had CT scan of elbow here (accession [id number]) QU ESTION FOR THE RADIOLOGIST: R/O FX PROTOCOL: AP,Grashey and Axillary views were obtained. (accession [id number]), AP(PA) and Lateral views were obtained. (accession [id number]), AP(PA) and Lateral views were obtained. (accession [id number]), AP(PA) and Lateral views were obtained. (accession [id number]) COMPARI SON: None FINDINGS: Portable left humerus: Overlying splint has been exchanged with improved alignment following closed reduction Left shoulder: Reverse TSA is intact Left humerus: Comminuted obliquedistal shaft humeral fracture with displacement, including varus angulation and posterior offset Left elbow: Intact IMPRESSION: Distal humeral fracture with subsequent closed reduction and splinting and improved alignment from prior Electronically signed by:Radames Johnson. Transcribed by: [email or web address], User Resident: Electronically Signed by: RADAMES JOHNSON @ 08/07/2017 12:40 PMNormalThe [facility] Comment on above:Order Comment: R/O FX, post reductionPROTHROMBIN TIMEon 84-47-9981SIW Coag RelTime (PPP)1.13 {INR}Normal0.91-1.16The [facility] WestComment on above:Result Comment: ACCCP RECOMMENDED INR FOR WARFARIN THERAPY CONDITION INRPROPHYLAXIS OF VENOUS THROMBOSIS 2-3(HIGH-RISK SURGERY)TREATMENT OF VENOUS THROMBOSIS 2-3TREATMENT OF PULMONARY EMBOLISM 2-3PREVENTION OF SYSTEMIC EMBOLISM: 2-3 ACUTE MYOCARDIAL INFARCTION TISSUE HEART VALVES VALVULAR HEART DISEASE ATRIAL FIBRILLATION RECURRENT SYSTEMIC EMBOLISMMECHANICAL HEART VALVE 2.5-3.5 FROM: ORAL ANTICOAGULANTS. MECHANISM OF ACTION, CLINICALEFFECTIVENESS, AND OPTIMAL THERAPEU TIC RANGE. [id number];108:231S-246S.Performed By: #### [id number] ####[facility] [place] [address], [facility] HOSPITALProthrombin time (PT) Coag time (PPP)14.5 nDqptwa59.3-14.8[facility] Comment on above:Result Comment: ALL RESULTS MUST BE INTERPRETED WITH RESPECT TO BLOOD DRAWING ARTIFACTOR DILUTION ERROR OF ANTICOAGULANT AT THE TIME OF SAMPLING.Performed By: #### [id number] ####[facility] [place] [address], [facility] 07-11-7837YGEHEVKHThe Christ HospitalDepartment of Dypihzump[address] [place] [address] Patien t Name: CARLY MARCELINO : 1940Sex: FAge: Race: WhiteMRN: [id number]. Location: EMERPatient Status: IVisit #: [id number] Date: 08/07/2017 5:35:00 AMCompleted Date: 08/07/2017 06:30 AMRequesting Provider: ARTEM CHARLTON Attending Provider: ARTEM CHARLTON Report Copy To: Signs & Symptoms: AbrasionHistory: Patient history not availableComments: R/O FXExam: SHOULDER LEFTAccession #: [id number] SH OULDER LEFT, PORTABLE HUMERUS LEFT, ELBOW LEFT 2 VWS, HUMERUS LEFT 08/07/2017 6:30 AM EDT SIGNS AND SYMPTOMS: Abrasion TECHNOLOGIST COMMENTS: s/p fall, pain distal humerus patient came from another hospital, patient incast- unable to unbend arm, patient had CT scan of elbow here (accession [id number]), post reduction left humerus (accession [id number]), s/p fall, pain distal humerus patient came from another hospital,patient in cast- unable to unbend arm, patient had CT scan of elbow here (accession [id number]), s/p fall, pain distal humerus patient came from another hospital, patient in cast- unable to unbend arm, patient had CT scan of elbow here (accession [id number]) QUESTION FOR THE RADIOLOGIST: R/O FX PROTOCOL: AP,Grashey and Axillary views were obtained. (accession [id number]), AP(PA) and Lateral views were obtained. (accession [id number]), AP(PA) and Lateral views were obtained. (accession [id number]), AP(PA) and Lateral views were obtained. (accession [id number]) COMPARISON: None FINDINGS: Portable left humerus:Overlying splint has been exchanged with improved alignment following closed reduction Left shoulder: Reverse TSA is intact Left humerus: Comminuted oblique distal shaft humeral fracture with displacement, including varus angulation and posterior offset Left elbow: Intact IMPRESSION: Distal humeralfracture with subsequent closed reduction and splinting and improved alignment from prior Electronically signed by:Radames Johnson. Transcribed by: [id number], User Resident: Electronically Signed by: RADAMES JOHNSON @ 08/07/2017 12:40 PMNormalThe [facility] Hospital Cleveland WestComment on above:Order Comment: R/O FXVITAMIN D 25-HYDROXYon 59-53-1337OSOUZKS D 25-OH33.3 ng/rOYhgwxm95.0-80.0The [facility] WestComment on above: Result Comment: >80.0 Toxicity possiblePerformed By: #### [id number], [id number] ####[facility] No Panel InformationMercy Health Tiff[facility] Hospital Vital Signs Date TimeVital SignValuePerforming CohgslyihDmomolnu46-30-8808 10:00-0500 Diastolic blood cjkpmjic71 mm[Hg]Alexis Monson MD Work Phone: 1(195) [phone]bDamybi56-35-4678 10:00-0500Heart rate64 /min Alexis Monson MD Work Phone: 1(901) [phone]rYdigwb64-56-9392 10:00-0500Respiratory rate14 /minAlexis Monson MD Work Phone: 1(344) [phone]eAtivng45-86-5902 10:00-5879XeF9% (BldA) [Mass fraction]96 %Alexis Monson MD Work Phone: 1(105) [phone]sJvvjmm02-68-2208 10:00-0500Systolic blood kxfobyse810 mm[Hg]Alexis Monson MD Work Phone: 1(964) [phone]fNyzoqk36-92-9799 23:32-0400Body wfjdtwlctri62.5 [degF]Alexis Monson MD Work Phone: 1(421) [phone]RkvjcUucdyq35-05-0832 13:20-0400Diastolic blood ncbrigsi17 mm[Hg]Aniket Jhaveri DPM Work Phone: [employer] TechnologiesWashington University Medical CenterHepwxahjdd51-59-7775 13:20-0400Heart rate57 /min Aniket Jhaveri DPM Work Phone: noWashington University Medical CenterMlcpvjvbvs31-97-4604 13:20-0400Systolic blood tuldnsdw160 mm[Hg]Aniket Jhaveri DPM Work Phone: noWashington University Medical CenterBmkpyqlirs98-63-1173 16:29-0400Diastolic blood mzerbmng811 mm[Hg]Aniket Jhaveri DPM Work Phone: [facility] RehabQzqzphlizd51-89-3046 16:29-0400Heart rate54 /min Aniket Jhaveri DPM Work Phone: [facility] RehabLmrgizvcuf61-36-5925 16:29-0400Systolic blood utnpuqgb751 mm[Hg]Aniket Jhaveri DPM Work Phone: [facility] RehabNegsnyfucp83-38-7616 14:43-0400Body lcxomn230.1 cmC[facility]05-27-2025 14:43-0400Body cpemodwmacz06 [degF][facility]05-27-2025 14:43-0400Diastolic blood mm[Hg][facility]05-27-2025 14:43-0400Heart rate48 /[facility]05-27-2025 14:43-0400Respiratory rate18 /[facility]05-27-2025 14:43-2556SbN2% (BldA) [Mass fraction]98 %[facility]05-27-2025 14:43-0400 Systolic blood huqsxrbi007 mm[Hg][facility]05-20-2025 11:53-0400Diastolic blood xvxbauez37 mm[Hg]Ronald Franco MD Work Phone: 1(633) [phone]pTbsvsd89-85-7096 11:53-0400Systolic blood gfpviepw052 mm[Hg]Ronald Franco MD Work Phone: 1(581) [phone]aVlqorl82-92-4558 10:47-0400Heart rate62 /Jose Franco MD Work Phone: 1(267) [phone]gNpmhuv41-32-1680 13:34-0400Body nmarie294.1 cm [facility]05-13-2025 13:34-0400Body mass index (BMI) [Ratio]27.1 kg/q2VktswbpddCincinnati Children'S Hospital [facility] Center05-13-2025 13:34-0400Body lkstho36.93 kgCinc[facility]05-13-2025 13:34-0400Diastolic blood sircgdwm87 mm[Hg][facility]05-13-2025 13:34-0400 Heart rate58 /[facility]05-13-2025 13:34-0400 Respiratory rate18 /[facility]05-13-2025 13:34-0400 SaO2% (BldA) [Mass fraction]94 %[facility]05-13-2025 13:34-0400Systolic blood jvmqwuup068 mm[Hg][facility] 05-21-2024 15:15-0400Body xjzymc225.18 cmSeth Magaly DO Work Phone: 1(310)[address]03-12-2025 15:15-0400 Body mass index (BMI) [Ratio]25.2 kg/m2Seth Magaly DO Work Phone: 1(567)[address] [place], [place] 7035503-12-2025 15:15-0400 Body qnmiujfjibh20.8 [degF]Hardeep Magaly DO Work Phone: 1(741)[address] [place], [place] 7035503-12-2025 15:15-0400 Body .02 kgSeth Magaly DO Work Phone: 1(075)[address] [place], [place] 7035503-12-2025 15:15-0400 Diastolic blood afcadxba20 mm[Hg]Hardeep Magaly DO Work Phone: 1(656)[address] [place], [place] 7035503-12-2025 15:15-0400 Heart rate55 /minSeth Magaly DO Work Phone: 1(416)4-[address] [place], [place] 3787903-12-2025 15:15-0400 Respiratory rate16 /minSeth Magaly DO Work Phone: 1(772)1-[address] [place], [place] 3787903-12-2025 15:15-0400 SaO2% (BldA) [Mass fraction]99 %Hardeep Magaly DO Work Phone: 1(384)[address]03-12-2025 15:15-0400 Systolic blood mm[Hg]Hardeep Magaly DO Work Phone: 1(442)[address]02-11-2025 13:47-0500 Body pvaxpl664.18 cmSeth Magaly DO Work Phone: 1(494)3-[address] [place], [place] 3787902-11-2025 13:47-0500 Body mass index (BMI) [Ratio]26.3 kg/m2Seth Magaly DO Work Phone: 1(930)4-[address] [place], [place] 3787902-11-2025 13:47-0500 Body kpebvzrkqmr88.4 [degF]Hardeep Magaly DO Work Phone: 1(311)7-[address] [place], [place] 3787902-11-2025 13:47-0500 Body nyhvaa83.2 kgSeth Magaly DO Work Phone: 1(259)[address] [place], [place] 7035502-11-2025 13:47-0500 Diastolic blood givkapiv66 mm[Hg]Hardeep Magaly DO Work Phone: 1(100)[address] [place], [place] 7035502-11-2025 13:47-0500 Heart rate52 /minSeth Magaly DO Work Phone: 1(259)[address] [place], [place] 7035502-11-2025 13:47-0500 SaO2% (BldA) [Mass fraction]93 %Hardeep Magaly DO Work Phone: 1(203)0-[address] [place], [place] 3787902-11-2025 13:47-0500 Systolic blood hgurftqf859 mm[Hg]Hardeep Magaly DO Work Phone: 1(331)[address] [place], [place] 3787902-10-2025 14:40-0500 Body erdcosxephz03.06 [degF]Hank Beard [facility]02-10-2025 14:40-0500 Diastolic blood dnehqiyw93 mm[Hg]Hank Beard [facility]02-10-2025 14:40-0500Heart rate63 /minJohn Chirag [facility]02-10-2025 14:40-0500 Respiratory rate16 /minJohn Chirag [facility]02-10-2025 14:40-8445GfV5% (BldA) [Mass fraction]97 %Hank Beard [facility]02-10-2025 14:40-0500 Systolic blood dykqcvva472 mm[Hg]Hank Beard [facility]02-10-2025 13:14-0500Body mass index (BMI) [Ratio]28.87 kg/r0Rsvvudnfuaq Monroe DO Work Phone: [facility]habYdhktvfkyu15-11-3834 13:14-0500Body zoowlv67.3 kg Christliaer Monroe DO Work Phone: [facility]habCfhbuqfgkb77-36-8986 13:14-0500Diastolic blood qmaepbob68 mm[Hg]Christliaer Monroe DO Work Phone: [facility]habSibphbhtvm49-42-7124 13:14-0500Heart rate62 /min Christliaer Monroe DO Work Phone: [facility]habWyvprbziym38-01-8423 13:14-8576XfQ3% (BldA) [Mass fraction]92 %Christopher Monroe DO Work Phone: [facility]habAypxvmjpak17-35-4355 13:14-0500Systolic blood dhopomkd835 mm[Hg]Christliaer Monroe DO Work Phone: [facility] RehabRfknjissvv46-52-6870 16:31-0500Diastolic blood ufpoljkz24 mm[Hg]Hank Beard [facility]01-31-2025 16:31-0500Heart rate69 /Rani Beard [facility]01-31-2025 16:31-0500Mean blood accqaphs445 mm[Hg]Hank Beard [facility]01-31-2025 16:31-0500 Respiratory rate21 /minJohn Chirag [address] [place], [place] 4354801-31-2025 16:31-4033AbV1% (BldA) [Mass fraction]98 %Hank Beard [address] [place], [place] 4354801-31-2025 16:31-0500 Systolic blood cinsrolf950 mm[Hg]Hank Beard [address] [place], [place] 4354801-31-2025 16:15-0500 Diastolic blood sxnzzime113 mm[Hg]Hank Beard [address] [place], [place] 4354801-31-2025 16:15-0500Heart rate67 /minJomiguel ángel Chirag [address] [place], [place] 4354801-31-2025 16:15-0500Mean blood obcumxuz717 mm[Hg]Hank Beard [address] [place], [place] 4354801-31-2025 16:15-0500 Respiratory rate21 /minHank Beard [address] [place], [place] 4354801-31-2025 16:15-7753DzS8% (BldA) [Mass fraction]96 %Hank Beard [address] [place], [place] 4354801-31-2025 16:15-0500 Systolic blood ztdrqqay842 mm[Hg]Hank Beard [address] [place], [place] 4354801-31-2025 16:00-0500 Diastolic blood vrxnnsog92 mm[Hg]Hank Beard [address] [place], [place] 4354801-31-2025 16:00-0500Heart rate60 /minJomiguel ángel Skaggse [address] [place], [place] 4354801-31-2025 16:00-0500Mean blood zqqjylxi677 mm[Hg]Hank Beard [address]01-31-2025 16:00-0500 Respiratory rate13 /minJomiguel ángel Skaggse [facility]01-31-2025 13:53-0500Body nasoichbqqu17.24 [degF]Hank Beard [facility]01-31-2025 13:53-0500Heart rate63 /Rani Beard [facility]01-31-2025 13:53-0500 Respiratory rate18 /Rani Beard [facility]01-10-2025 10:18-0500Body ogicwz257.18 cmSeth Magaly DO Work Phone: 1(507)0-[address] [place], [place] 3787901-10-2025 10:18-0500 Body mass index (BMI) [Ratio]25.9 kg/m2Seth Magaly DO Work Phone: 1(834)7-[address] [place], [place] 3787901-10-2025 10:18-0500 Body .2 [degF]Hardeep Magaly DO Work Phone: 1(447)[address] [place], [place] 3787901-10-2025 10:18-0500 Body kqzyly19.29 kgSeth Magaly DO Work Phone: 1(001)7-[address] [place], [place] 3787901-10-2025 10:18-0500 Diastolic blood qrxixwox95 mm[Hg]Hardeep Magaly DO Work Phone: 1(398)6-[address] [place], [place] 3787901-10-2025 10:18-0500 Heart rate68 /minSeth Magaly DO Work Phone: 1(113)3-[address] [place], [place] 3787901-10-2025 10:18-0500 Respiratory rate18 /minSeth Magaly DO Work Phone: 1(214)0-[address] [place], [place] 3787901-10-2025 10:18-0500 SaO2% (BldA) [Mass fraction]98 %Hardeep Magaly DO Work Phone: 1(513)5-[address] [place], [place] 3787901-10-2025 10:18-0500 Systolic blood mm[Hg]Hardeep Mckenzie DO Work Phone: [facility]12-29-2024 22:30-0500 Diastolic blood kikzjtse71 mm[Hg]James Nguyen [facility]12-29-2024 22:30-0500Heart rate69 /minTim Patrick [facility]12-29-2024 22:30-0500Mean blood mm[Hg]James Nguyen [address] [place], [place] 3707312-29-2024 22:30-0500 Respiratory rate16 /minTim Patrick [facility]12-29-2024 22:30-6661WzS4% (BldA) [Mass fraction]93 %James Nguyen [facility]12-29-2024 22:30-0500 Systolic blood tupsnbji706 mm[Hg]James Nguyen [facility]12-29-2024 22:00-0500Heart rate71 /minTim Patrick [facility]12-29-2024 22:00-5277WmT8% (BldA) [Mass fraction]96 %James Nguyen [facility]12-29-2024 21:30-0500 Diastolic blood kjonbeah40 mm[Hg]James Nguyen [facility]12-29-2024 21:30-0500Heart rate70 /minTim Patrick [facility]12-29-2024 21:30-0500Mean blood ndnosfmu422 mm[Hg]James Nguyen [facility]12-29-2024 21:30-0500 Respiratory rate20 /minTim Patrick [facility]12-29-2024 21:30-3884NlM3% (BldA) [Mass fraction]98 %James Nguyen [address] [place], [place] 4354812-29-2024 21:30-0500 Systolic blood ryoyyjcf310 mm[Hg]James Nguyen [address]12-29-2024 19:02-0500Body chwrrouewvn02.6 [degF]James Nguyen [address] [place], [place] 4354812-29-2024 19:02-0500Heart rate67 /minTim Patrick [address] [place], [place] 4354812-29-2024 19:02-0500 Respiratory rate18 /minTim Patrick [address] [place], [place] 3316612-09-2024 15:58-0500Body kefdqi526.18 cmSeth Magaly DO Work Phone: 1(867)[address]12-09-2024 15:58-0500 Body mass index (BMI) [Ratio]26.3 kg/m2Seth Magaly DO Work Phone: 1(795)6-[address] [place], [place] 3787912-09-2024 15:58-0500 Body lmuwclmmoxc82.3 [degF]Hardeep Magaly DO Work Phone: 1(043)1-[address] [place], [place] 3787912-09-2024 15:58-0500 Body elwiot27.2 kgSeth Magaly DO Work Phone: 1(610)4-[address] [place], [place] 3787912-09-2024 15:58-0500 Diastolic blood mm[Hg]Hardeep Magaly DO Work Phone: 1(034)5-[address] [place], [place] 3787912-09-2024 15:58-0500 Heart rate67 /minSeth Magaly DO Work Phone: 1(277)4-[address] [place], [place] 3787912-09-2024 15:58-0500 Respiratory rate18 /minSeth Magaly DO Work Phone: 1419)[address] [place], [place] 7035512-09-2024 15:58-0500 SaO2% (BldA) [Mass fraction]94 %Hardeep Magaly DO Work Phone: 1419)[address] [place], [place] 7035512-09-2024 15:58-0500 Systolic blood kvyvceav903 mm[Hg]Hardeep Magaly DO Work Phone: 1419)[address] [place], [place] 7035511-12-2024 14:56-0500 Body erkskd422.18 cmSeth Magaly DO Work Phone: 1419)[address] [place], [place] 7035511-12-2024 14:56-0500 Diastolic blood fkigmjla03 mm[Hg]Hardeep Magaly DO Work Phone: 1419)[address] [place], [place] 7035511-12-2024 14:56-0500 Heart rate60 /minSeth Magaly DO Work Phone: 1419)[address] [place], [place] 7035511-12-2024 14:56-0500 Respiratory rate18 /minSeth Magaly DO Work Phone: 1419)[address] [place], [place] 7035511-12-2024 14:56-0500 SaO2% (BldA) [Mass fraction]95 %Hardeep Magaly DO Work Phone: 1419)[address] [place], [place] 7035511-12-2024 14:56-0500 Systolic blood jlvgwybc801 mm[Hg]Hardeep Magaly DO Work Phone: 1419)[address] [place], [place] 7035511-11-2024 14:45-0500 Body tzomiz246.18 cmSeth Magaly DO Work Phone: 1419)[address] [place], [place] 7035511-11-2024 14:45-0500 Body mass index (BMI) [Ratio]27.1 kg/m2Seth Magaly DO Work Phone: 1419)[address] [place], [place] 7035511-11-2024 14:45-0500 Body .6 [degF]Hardeep Magaly DO Work Phone: 1(358)668-[address] [place], [place] 3787911-11-2024 14:45-0500 Body .47 kgSeth Magaly DO Work Phone: 1(276)3-[address] [place], [place] 3787911-11-2024 14:45-0500 Diastolic blood mm[Hg]Hardeep Magaly DO Work Phone: 1(730)5-[address] [place], [place] 3787911-11-2024 14:45-0500 Heart rate54 /minSeth Magaly DO Work Phone: 1(479)9-[address] [place], [place] 3787911-11-2024 14:45-0500 Respiratory rate18 /minSeth Magaly DO Work Phone: 1(456)2-[address] [place], [place] 3787911-11-2024 14:45-0500 SaO2% (BldA) [Mass fraction]99 %Hardeep Magaly DO Work Phone: 1(391)5-[address] [place], [place] 3787911-11-2024 14:45-0500 Systolic blood bvjlodxo625 mm[Hg]Hardeep Magaly DO Work Phone: 1(733)7-[address] [place], [place] 3787909-18-2024 14:14-0400 Body qoaudt168.18 cmC[facility]09-18-2024 14:14-0400Body mass index (BMI) [Ratio]28 kg/z2PqjmhwzbmCinc[facility]09-18-2024 14:14-0400Body xboamc42.19 kgC[facility]09-18-2024 14:14-0400Diastolic blood nrgklpsu62 mm[Hg][facility] 11-28-2023 14:14-0400Heart rate60 /[facility] 11-28-2023 14:14-0400Respiratory rate18 /[facility] 11-28-2023 14:14-0544GxR0% (BldA) [Mass fraction]95 %[facility]09-18-2024 14:14-0400Systolic blood mm[Hg][facility]08-28-2024 14:07-0400Body .18 cmC[facility]08-28-2024 14:07-0400Body mass index (BMI) [Ratio]29.1 kg/m2 [facility]08-28-2024 14:07-0400Body xwyzckkqycl02.3 [degF][facility]08-28-2024 14:07-0400Body dzsval05.36 kg [facility]08-28-2024 14:07-0400Diastolic blood awnxfmlj30 mm[Hg][facility]08-28-2024 14:07-0400Heart rate71 /min [facility]08-28-2024 14:07-0400Respiratory rate18 /min [facility]08-28-2024 14:07-1380VeD7% (BldA) [Mass fraction]92 %[facility]08-28-2024 14:07-0400Systolic blood agtnkrvm079 mm[Hg][facility]08-08-2024 14:00-0400 Hourly RoundingChandan SMITH [facility]08-08-2024 13:15-0400 Diastolic blood csouwgkv20 mm[Hg]Chandan SMITH [facility]08-08-2024 13:15-0400Heart rate63 /minPatrick BROOKS [facility]08-08-2024 13:15-0400Mean blood ftmusxrc091 mm[Hg]Chandan SMITH [facility]08-08-2024 13:15-0400 Respiratory rate18 /minPatrick BROOKS [facility]08-08-2024 13:15-0326HhT5% (BldA) [Mass fraction]92 %Chandan SMITH [facility]08-08-2024 13:15-0400 Systolic blood jvhzkiac494 mm[Hg]Chandan SMITH [address] [place], [place] [id number] 13:00-0400 Hourly RoundingChandan SMITH [address]08-08-2024 12:29-6695TxL8% (BldA) [Mass fraction]93 %Chandan SMITH [address]08-08-2024 12:00-0400Body avyhmsagnwc45.24 [degF]Chandan SMITH [address] [place], [place] [id number] 12:00-0400 Hourly RoundingChandan SMITH [address] [place], [place] [id number] 10:55-0400 Diastolic blood nexyvcdp05 mm[Hg]Chandan SMITH [address] Street08-08-2024 10:55-0400Heart rate60 /minPatrick BROOKS [address] [place], [place] 4354808-08-2024 10:55-0400Mean blood dimttyxh52 mm[Hg]Chandan SMITH [address] [place], [place] 4354808-08-2024 10:55-0400 Respiratory rate17 /minPatrick BROOKS [address] [place], [place] 4354808-08-2024 10:55-9381TbJ3% (BldA) [Mass fraction]93 %Chandan SMITH [address] [place], [place] 4354808-08-2024 10:55-0400 Systolic blood hfuuqasc505 mm[Hg]Chandan SMITH [address] [place], [place] 4354808-08-2024 09:15-0400Heart rate61 /minPatrick BROOKS [address] [place], [place] 4354808-08-2024 09:15-0400 Respiratory rate15 /minPatrick BROOKS [address]08-08-2024 08:02-0400 Diastolic blood zqdecubw90 mm[Hg]Chandan SOLORZANOSLIN [address] [place], [place] 4354808-08-2024 08:02-0400 Systolic blood pkytxpyg383 mm[Hg]Chandan SOLORZANOSLIN [address] [place], [place] 4354808-08-2024 08:01-0400Heart rate68 /minPatrick BROOKS [address] [place], [place] 4354808-08-2024 08:01-0400 Respiratory rate18 /minPatrick BROOKS [address]08-08-2024 06:00-0400 Promise to ReturnPatrick BROOKS [address]08-08-2024 05:07-0400 Promise to ReturnPatrick BROOKS [address] [place], [place] 4354808-08-2024 04:41-0400 Promise to ReturnPatrick BROOKS [address] [place], [place] 4354808-08-2024 04:00-0400Blood Pressure LocationPatrick BROOKS [address] [place], [place] 4354808-08-2024 04:00-0400Mean blood mntepyge204 mm[Hg]Chandan SOLORZANOSLIN [address] [place], [place] 4354808-08-2024 00:00-0400Blood Pressure LocationPatrick BROOKS [address] [place], [place] 4354808-08-2024 00:00-0400Body ifzsurbxdiq08.88 [degF]Chandan SOLORZANOSLIN [address] [place], [place] 3316608-07-2024 21:11-0400Heart rate78 /minPatrick BROOKS [facility]08-07-2024 14:13-0400Heart rate88 /minPatrick BROOKS [facility]08-07-2024 09:32-0400Heart rate84 /minPatrick BROOKS [facility]08-06-2024 16:03-0400Heart rate70 /minPatrick BROOKS [address] [place], [place] 4354808-06-2024 16:03-0400 Respiratory rate18 /minPatrick BROOKS [facility]08-06-2024 15:48-0400Heart rate72 /minPatrick BROOKS [facility]07-30-2024 14:00-0400 Diastolic blood idlmocfs02 mm[Hg]Ross Flores DO Work Phone: 1(652) [phone]qYfdyxw99-37-1776 14:00-0400Heart rate88 /min Ross Flores DO Work Phone: 1(395) [phone]qGlrpwl78-83-0970 14:00-0400Respiratory rate19 /minMatthew Sandra DO Work Phone: 1(182) [phone]mCiyqbi34-88-4774 14:00-9607AnA1% (BldA) [Mass fraction]94 %Ross Flores DO Work Phone: 1(752) [phone]4ImupiEfhvoh89-23-7089 14:00-0400Systolic blood pngtigrn909 mm[Hg]Ross Flores DO Work Phone: [phone]998CqdcvKwyjnv12-88-0590 17:43-0400Body .29 [degF]Ross Flores DO Work Phone: 1(205) [phone]iLglsbe61-31-3915 14:55-0400Diastolic blood webfwlsh38 mm[Hg]Hank Beard [facility]07-29-2024 14:55-0400Heart rate63 /Rani Beard [address] [place], [place] 4354807-29-2024 14:55-0400Mean blood fzgbpuuv130 mm[Hg]Hank Beard [address] [place], [place] 4354807-29-2024 14:55-0400 Respiratory rate16 /minHank Beadr [address] [place], [place] 4354807-29-2024 14:55-4156BjD8% (BldA) [Mass fraction]95 %Hank Beard [address] [place], [place] 4354807-29-2024 14:55-0400 Systolic blood iheujhsd753 mm[Hg]Hank Beard [address] [place], [place] 4354807-29-2024 14:00-0400Body vohdvndyizx55.06 [degF]Hank Beard [address] [place], [place] 4354807-29-2024 14:00-0400 Diastolic blood zlhuwvxg10 mm[Hg]Hank Beard [address] [place], [place] 4354807-29-2024 14:00-0400Heart rate67 /Rani Beard [facility]07-29-2024 14:00-0400Mean blood gtnuidmh651 mm[Hg]Hank Beard [address] [place], [place] 4354807-29-2024 14:00-7633QpI7% (BldA) [Mass fraction]97 %Hank Beard [address] [place], [place] 4354807-29-2024 14:00-0400 Systolic blood fkfmnmux631 mm[Hg]Hank Beard [address] [place], [place] 4354807-29-2024 13:00-0400 Diastolic blood jujiozcv19 mm[Hg]Hank Beadr [address] [place], [place] 4354807-29-2024 13:00-0400Heart rate68 /minJomiguel ángel Beard [address] [place], [place] 4354807-29-2024 13:00-0400Mean blood gddwoowj369 mm[Hg]Hank Beard [address] [place], [place] 4354807-29-2024 13:00-0400 Systolic blood vhjuntug113 mm[Hg]Hank Beard [address] [place] 4354807-29-2024 12:00-0400Body zpbhjrbrcyf23.7 [degF]Hank Beard [address] [place] 4354807-29-2024 09:50-0400Heart rate69 /minJomiguel ángel Skaggse [address] [place], [place] 4354807-29-2024 09:50-0400 Respiratory rate18 /minJohn Chirag [address] [place] 4354807-29-2024 09:44-0400Heart rate71 /minJomiguel ángel Chirag [address] [place], [place] 4354807-29-2024 09:44-0400 Respiratory rate16 /minJohn Chirag [address] [place] 4354807-27-2024 13:00-0400 Hourly RoundingRonobir BRAD [address] [place], [place] 4354807-27-2024 13:00-0400 Promise to ReturnRonobir BRAD [address] [place], [place] 4354807-27-2024 12:00-0400 Hourly RoundingRonobir BRAD [address] [place], [place] 4354807-27-2024 12:00-0400 Promise to ReturnRonobir BRAD [address] [place] 4354807-27-2024 12:00-6566TzS1% (BldA) [Mass fraction]99 %Ronobir BRAD [address] [place] 4354807-27-2024 11:55-0400 Promise to ReturnRonobir BRAD [address] [place] 4354807-27-2024 11:47-0400Heart rate73 /minRonobir BRAD [address] [place] 4354807-27-2024 11:47-0400 Respiratory rate18 /minRonobir BRAD [address]07-27-2024 11:47-3417AeK2% (BldA) [Mass fraction]96 %Ronobir BRAD [address]07-27-2024 11:36-2119OoJ0% (BldA) [Mass fraction]96 %Ronobir BRAD [address]07-27-2024 11:33-0400Heart rate71 /minRonobir BRAD [address]07-27-2024 11:33-0400 Diastolic blood cixibbsz91 mm[Hg]Ronobir BRAD [address]07-27-2024 11:33-0400Mean blood hqmoyqon38 mm[Hg]Ronobir BRAD [address] [place] 4354807-27-2024 11:33-0400 Systolic blood xdiwgdcs127 mm[Hg]Ronobir BRAD [address] [place] 4354807-27-2024 11:32-0400Body oqqexamspsh29.34 [degF]Ronobir BRAD [address] [place] 4354807-27-2024 09:24-0400 Diastolic blood jsxckuxm29 mm[Hg]Ronobir BRAD [address] [place] 4354807-27-2024 09:24-0400Heart rate87 /minRonobir BRAD [address] [place] 4354807-27-2024 09:24-0400 Systolic blood hvgyakwe026 mm[Hg]Ronobir BRAD [address] [place] 4354807-27-2024 07:52-0400 Respiratory rate20 /minRonobir BRAD [address]07-27-2024 06:27-0400Blood Pressure LocationRonobir BRAD [address]07-27-2024 06:27-0400Body .04 [degF]Ronobir BRAD [address] [place] 4354807-27-2024 06:27-0400Mean blood mm[Hg]Ronobir BRAD [address] [place], [place] 4354807-27-2024 04:00-0400Body nohaynjjrbh345.22 [degF]Ronobir BRAD [address] [place] 4354807-27-2024 04:00-0400Mean blood ynenpspx351 mm[Hg]Ronobir BRAD [address] [place] 4354807-26-2024 21:30-0400Heart rate80 /minRonobir BRAD [address] [place] 4354807-26-2024 19:00-0400Blood Pressure LocationRonobir BRAD [address] [place] 4354807-26-2024 19:00-0400Body nuzubicblhg16.24 [degF]Ronobir BRAD [address] [place] 4354807-26-2024 19:00-0400Heart rate83 /minRonobir BRAD [address] [place] 4354807-26-2024 16:15-0400Mean blood qazctwkw74 mm[Hg]Ronobir BRAD [address] [place] [address]4807-26-2024 16:14-0400Body sgppvketsqj98.42 [degF]Ronobir BRAD [address] [place] 4354807-26-2024 13:18-0400Heart rate88 /minRonobir BRAD [address] [place] 4354807-26-2024 10:50-0400Mean blood txprkgnu367 mm[Hg]Ronobir BRAD [address] [place] [address]4807-26-2024 10:50-0400Body xqxwmwuxkwv929.48 [degF]Ronobir BRAD [address] [place], [place] 3316607-26-2024 08:17-0400Heart rate82 /minRonobir BRAD [address]07-25-2024 11:31-0400Heart rate67 /minRonobir BRAD [address]07-25-2024 11:31-0400Mean blood mm[Hg]Ronobir BRAD [address]07-25-2024 05:05-0400 Respiratory rate19 /minRonobir BRAD [address] [place] 4354807-25-2024 01:30-0400 Respiratory rate18 /minRonobir BRAD [address] [place] [address]4807-24-2024 21:30-0400 Respiratory rate17 /minRonobir BRAD [address] [place] 4354807-24-2024 17:38-0400gluc 97 mg/dLRonobir BRAD [facility]07-24-2024 17:38-0400gluc Ronobir BRAD [facility]07-24-2024 17:13-0400gluc 97 mg/dLRonobir BRAD [facility]07-22-2024 11:22-0400Body guaozs963.18 [facility] 11:22-0400Body mass index (BMI) [Ratio]30.1 kg/x7EohpfwazpCinc[facility]07-22-2024 11:22-0400Body vorzufxtgkv50.6 [degF][facility]07-22-2024 11:22-0400Body wibwbm86.28 kgC[facility]07-22-2024 11:22-0400Diastolic blood kuolqmlm98 mm[Hg][facility] 10-01-2023 11:22-0400Heart rate65 /[facility] 10-01-2023 11:22-2222JeB3% (BldA) [Mass fraction]95 %[facility]07-22-2024 11:22-0400Systolic blood zaxhouca541 mm[Hg][facility]06-24-2024 15:49-0400Body eiwsvx189.18 cmC[facility]06-24-2024 15:49-0400Diastolic blood ornvlfuf02 mm[Hg][facility]06-24-2024 15:49-0400Heart rate67 /[facility]06-24-2024 15:49-0400Respiratory rate20 /[facility]06-24-2024 15:49-5478PqS5% (BldA) [Mass fraction]95 %[facility]06-24-2024 15:49-0400Systolic blood jonykbpm610 mm[Hg] [facility]06-20-2024 14:40-0400Diastolic blood xjajbtdj99 mm[Hg]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[employer]URERS REPRESENTATIVE Work Phone: [phone]kQrpuhg95-62-2979 14:40-0400Heart rate70 /Rambo Cabrera APRN-MANUFACTURERS REPRESENTATIVE Work Phone: [phone]kKvsknc45-59-0389 14:40-0400Systolic blood plfntjip069 mm[Hg]Kymberly Cabrera APRN-MANUFACTURERS REPRESENTATIVE Work Phone: [phone]iNxskeo89-53-8405 14:37-0400Body kotsopyrnoc93.29 [degF]Kymberly Cabrera APRN-MANUFACTURERS REPRESENTATIVE Work Phone: [phone]hFujkxe26-78-7128 14:37-0400Respiratory rate17 /Rambo Cabrera APRN-MANUFACTURERS REPRESENTATIVE Work Phone: [phone]iRzbqlz79-45-1954 13:44-0400Body toibmybyqbs66.49 [degF]Ross Castorena MD Work Phone: [phone]()[phone]wNqlnns44-60-5997 13:44-0400Diastolic blood tkyftabc80 mm[Hg]Ross Castorena MD Work Phone: AqkifTatznu95-020772GbuakCbzwwm11-57-9318 13:44-0400Heart rate81 /min Ross Castorena MD Work Phone: [phone]()[phone]tLnydyg49-81-6272 13:44-0400Respiratory rate17 /minMatthew Raffaele VICTOR Work Phone: XfsptVdlkoz44-896827NcxnoVazkju00-89-2387 13:44-2071FbN7% (BldA) [Mass fraction]95 %Ross Castorena MD Work Phone: TxwkzOzydvc10-609932JdqgiWgtojl61-68-9157 13:44-0400Systolic blood yqneeiwj390 mm[Hg]Ross Castorena MD Work Phone: WyewkStkolz07-158959HfzukZidhfo31-64-0585 16:00-0400Diastolic blood xlyunfpa55 mm[Hg] 2OzwvlArhkep37-13-8247 16:00-0400Heart rate85 /minMh 3 OcvtrTfdscv02-55-0463 16:00-0400Respiratory rate17 /minMh 5KbrhlMlbnfv00-75-3213 16:00-7744HnC6% (BldA) [Mass fraction]98 %[address]9UvwojUwvsby02-31-6135 16:00-0400 Systolic blood eyvbepkp743 mm[Hg][address]8MppbmDzldfl39-22-3541 14:01-5068FxJ2% (BldA) [Mass fraction]99.2 %Ross Castorena MD Work Phone: 1(101) [phone]221GrkyoRgvojd44-33-0998 02:05-0400Body mass index (BMI) [Ratio]27.91 kg/s8Ohdfaelbeau Castorena MD Work Phone: 1(691) 340-2715217-1521OpssiBedimt29-207037EcwqrCecjki11-41-8599 02:05-0400Body xpiuur02.83 kg Ross Castorena MD Work Phone: 1(201) 531-2584971-8286EaqbuHvkeov85-916296DatfxPrxlmr92-54-1369 18:30-0400Diastolic blood zxqioshp43 mm[Hg]James Nguyen [facility]06-02-2024 18:30-0400Heart rate72 /minTim Patrick [facility]06-02-2024 18:30-0400Mean blood trjqpaub67 mm[Hg]James Nguyen [facility]06-02-2024 18:30-0400 Respiratory rate16 /minTim Patrick [facility]06-02-2024 18:30-6376TnI6% (BldA) [Mass fraction]97 %James Nguyen [facility]06-02-2024 18:30-0400 Systolic blood glsvukbu591 mm[Hg]James Nguyen [facility]06-02-2024 18:00-0400 Diastolic blood mqorkauv30 mm[Hg]James Nguyen [facility]06-02-2024 18:00-0400Heart rate71 /minTim Patrick [address]06-02-2024 18:00-0400Mean blood blnkpsof83 mm[Hg]James Nguyen [address] [place], [place] 4354806-02-2024 18:00-0400 Respiratory rate19 /minJames Nguyen [address] [place], [place] 4354806-02-2024 18:00-6088VeC0% (BldA) [Mass fraction]93 %Jmaes Nguyen [address] [place], [place] 3316606-02-2024 18:00-0400 Systolic blood kaydhkme618 mm[Hg]James Nguyen [address] [place], [place] 3316606-02-2024 17:30-0400 Diastolic blood elkvbcag97 mm[Hg]James Nguyen [address] [place], [place] 3316606-02-2024 17:30-0400Heart rate72 /minJames Nguyen [address] [place], [place] 3316606-02-2024 17:30-0400Mean blood metfgxfq89 mm[Hg]James Nguyen [address] [place], [place] 3316606-02-2024 17:30-0400 Respiratory rate17 /minJames Nguyen [address] [place], [place] 4354806-02-2024 17:30-1905WiN0% (BldA) [Mass fraction]92 %James Nguyen [address] [place], [place] 4354806-02-2024 17:30-0400 Systolic blood zlpenjuh096 mm[Hg]James Nguyen [address] [place], [place] 4354806-02-2024 16:08-0400gluc 131 mg/dLJames Nguyen [address] [place] 4354806-02-2024 16:08-0400gluc James Nguyen [address] [place] 4354806-02-2024 16:00-0400Body yezvvtkpmlj37.06 [degF]James Nguyen [facility]06-02-2024 16:00-0400Heart rate74 /minJames Nguyen [facility]05-25-2024 04:01-0400Body woaovhgvuix52.8 [degF]Janny Ellison MD Work Phone: [phone]()[phone]tEaujmb85-37-3586 04:01-0400Diastolic blood ztvjoaem92 mm[Hg]Janny Ellison MD Work Phone: [phone]()[phone]hTsunox48-96-9608 04:01-0400Heart rate72 /Garrett Ellison MD Work Phone: [phone]()[phone]hHjzhjt92-74-2351 04:01-0400Respiratory rate18 /Garrett Ellison MD Work Phone: [phone]()[phone]bDnyklt30-55-6971 04:01-8988EeS4% (BldA) [Mass fraction]97 %Janny Ellison MD Work Phone: [phone]()[phone]sWhkfcs32-94-3064 04:01-0400Systolic blood ygpwzzmu982 mm[Hg]Janny Ellison MD Work Phone: [phone]()[phone]gOhygcj20-42-4416 14:06-0400Heart rate77 /Garrett Ellison MD Work Phone: [phone]()[phone]mHtwzaz37-34-9492 08:35-0400Heart rate77 /Garrett Ellison MD Work Phone: SzpkjIkzssn74-938078NtddfQhhbfp26-37-4636 16:48-0400Body mass index (BMI) [Ratio]28.77 kg/q8RzvyoJanny Ellison MD Work Phone: [phone]()[phone]vWbomyd30-71-0037 16:48-0400Body .33 kg Janny Ellison MD Work Phone: [phone]()[phone]fNitwcp36-93-3996 15:50-0400Body .2 cm Janny Ellison MD Work Phone: BhzqsZaauat50-219734PaxsvJudvmp64-62-8709 12:30-0400Diastolic blood tmkefdtw46 mm[Hg]Stacia Dwyer [address]05-19-2024 12:30-0400Heart rate58 /minStacia Dwyer [address] [place], [place] 3316605-19-2024 12:30-0400Mean blood sqprpaqi28 mm[Hg]Stacia Dwyer [address] [place], [place] 3316[address]-19-2024 12:30-0400 Respiratory rate14 /minStacia Dwyer [address] [place], [place] 3316605-19-2024 12:30-6100MmR2% (BldA) [Mass fraction]97 %Stacia Dwyer [address] [place], [place] 3316605-19-2024 12:30-0400 Systolic blood cwdwmbia626 mm[Hg]Stacia Dwyer [address] [place], [place] 3316605-19-2024 12:21-0400 Diastolic blood wsooefpi18 mm[Hg]Stacia Dwyer [address] [place], [place] 3316605-19-2024 12:21-0400 Systolic blood jftvyvgm771 mm[Hg]Stacia Dwyer [address] [place], [place] 3316605-19-2024 12:15-0400Heart rate61 /Panchito Dwyer [address]05-19-2024 12:15-0400 Respiratory rate20 /minStacia Dwyer [address] [place], [place] 3316605-19-2024 12:15-7311GtY0% (BldA) [Mass fraction]92 %Stacia Dwyer [address] [place], [place] 3316605-19-2024 11:45-0400 Diastolic blood nfklzsee84 mm[Hg]Stacia Dwyer [address] [place], [place] 3316605-19-2024 11:45-0400Heart rate58 /Panchito Dwyer [address] [place], [place] 4354805-19-2024 11:45-0400Mean blood xxlgtica590 mm[Hg]Stacia Dwyer [address] [place], [place] 4354805-19-2024 11:45-0400 Respiratory rate11 /Panchito Dwyer [address] [place] 4354805-19-2024 11:45-4779UuG9% (BldA) [Mass fraction]93 %Stacia Dwyer [address] [place] 4354805-19-2024 11:45-0400 Systolic blood qbguiwye540 mm[Hg]Stacia Reymundo [address]05-19-2024 11:23-0400Body sxwlfpufacp82.7 [degF]Stacia Reymundo [address]05-19-2024 11:23-0400Heart rate62 /Panchito Dwyer [address] [place] 4354805-19-2024 11:23-0400 Respiratory rate18 /Panchito Dwyer [address] [place] 4354805-19-2024 11:04-0400Body sygfiqnrago82.26 [degF]Stacia Reymundo [address] [place] 4354805-19-2024 11:04-0400Heart rate66 /minStacia Dwyer [address] [place] 4354805-19-2024 11:04-0400 Respiratory rate20 /Panchito Dwyer [address] [place] 4354805-06-2024 15:20-0400Body kptrba950.18 cmDO Hardeep Rogles Work Phone: [facility]05-06-2024 15:20-0400 Body mass index (BMI) [Ratio]29.4 kg/m2DO Hardeep Magaly Work Phone: 1([phone] [place], [place] 3787905-06-2024 15:20-0400 Body jjfnwjvypgk87.2 [degF]DO Hardeep Magaly Work Phone: 1(067)[address] [place], [place] 3787905-06-2024 15:20-0400 Body jjqyhy09.27 kgDO Hardeep Magaly Work Phone: 1(212)1-[address] [place], [place] 3787905-06-2024 15:20-0400 Diastolic blood nhhtized50 mm[Hg]DO Hardeep Magaly Work Phone: 1(557)[address]05-06-2024 15:20-0400 Heart rate64 /minDO Hardeep Magaly Work Phone: 1(245)[address]05-06-2024 15:20-0400 Respiratory rate18 /minDO Hardeep Magaly Work Phone: 1(426)[address]05-06-2024 15:20-0400 SaO2% (BldA) [Mass fraction]96 %DO Hardeep Magaly Work Phone: 1(867)2-[address] [place], [place] 3787905-06-2024 15:20-0400 Systolic blood pqzlebxj540 mm[Hg]DO Hardeep Magaly Work Phone: 1(881)[address]05-03-2024 22:28-0400 Diastolic blood orsmtioa87 mm[Hg]Hank Beard [facility]05-03-2024 22:28-0400Heart rate63 /minJohn Chirag [facility]05-03-2024 22:28-0400Mean blood ctgjqyrp225 mm[Hg]Hank Beard [facility]05-03-2024 22:28-0400 Respiratory rate16 /minJohn Chirag [facility]05-03-2024 22:28-4912VyH8% (BldA) [Mass fraction]97 %Hank Beard [address]05-03-2024 22:28-0400 Systolic blood ihskzwoe949 mm[Hg]Hank Beard [address]05-03-2024 21:20-0400 Diastolic blood rvlvvyli03 mm[Hg]Hank Beard [address]05-03-2024 21:20-0400Heart rate60 /minJomiguel ángel Beard [address]05-03-2024 21:20-0400Mean blood ltxpsikw45 mm[Hg]Hank Beard [address]05-03-2024 21:20-0400 Respiratory rate16 /minJomiguel ángel Beard [address]05-03-2024 21:20-5143BsT2% (BldA) [Mass fraction]95 %Hank Beard [address] [place], [place] 4354805-03-2024 21:20-0400 Systolic blood fcxqvoxc643 mm[Hg]Hank Beard [address]05-03-2024 20:26-0400 Diastolic blood tkzxziwf01 mm[Hg]Hank Beard [address] [place] 4354805-03-2024 20:26-0400Heart rate74 /minJomiguel ángel Beard [address] [place], [place] 4354805-03-2024 20:26-0400Mean blood mm[Hg]Hank Beard [address]05-03-2024 20:26-0400 Respiratory rate16 /minJomiguel ángel Skaggse [address] [place], [place] 4354805-03-2024 20:26-0458NrC5% (BldA) [Mass fraction]93 %Hank Beard [facility]05-03-2024 20:26-0400 Systolic blood uirekqbx271 mm[Hg]Hank Beard [facility]05-03-2024 18:42-0400 Hourly RoundingHank Beard [address] [place], [place] 4354805-03-2024 18:42-0400 Promise to ReturnHank Beard [address] [place], [place] 4354805-03-2024 17:32-0400Body lytfvegtevb10.06 [degF]Hank Beard [facility]05-03-2024 17:32-0400Heart rate59 /minHank Beard [facility]05-01-2024 16:44-0400 [facility]20[facility] 16:44-0400 [facility] 16:14-0400Respiratory rate16 /minOhio[facility] 07-11-2023 16:10-0400Respiratory rate16 /minOhio[facility]05-01-2024 16:10-8242WjA3% (BldA) [Mass fraction]95 %[facility]05-01-2024 15:42-0400Hourly RoundingOhio[facility]05-01-2024 15:42-0400Promise to Return [facility]05-01-2024 14:16-0400Hourly Rounding [facility]05-01-2024 14:16-0400[facility] to ReturnOhio[facility]05-01-2024 12:04-0400 Respiratory rate16 /[facility]05-01-2024 12:04-1854NdQ6% (BldA) [Mass fraction]95 %[facility]05-01-2024 11:00-0400Blood Pressure LocationOhioHealth [facility]05-01-2024 11:00-0400Body mheibttbant13.78 [degF][facility]05-01-2024 11:00-0400Diastolic blood pkyhyfhh07 mm[Hg][facility]05-01-2024 11:00-0400Heart rate70 /[facility]05-01-2024 11:00-0400 Heart rate68 /[facility]05-01-2024 11:00-0400Mean blood hqskmfyy29 mm[Hg][facility]05-01-2024 11:00-0400Systolic blood rlhedthx140 mm[Hg][facility]05-01-2024 09:30-0400Diastolic blood lshrzoia16 mm[Hg][facility]05-01-2024 09:30-0400Heart rate69 /[facility]05-01-2024 09:30-0400 Systolic blood fykfsnnb590 mm[Hg][facility] 07-11-2023 08:41-0400Heart rate80 /[facility]05-01-2024 08:36-0400Heart rate75 /[facility]05-01-2024 08:00-0400Body ufaglacxjgm51.98 [degF][facility]05-01-2024 08:00-0400Diastolic blood awlmrhpn35 mm[Hg][facility] 08:00-0400Heart rate65 /[facility] 08:00-0400Mean blood jbwmjaws51 mm[Hg][facility] 08:00-0400Systolic blood nilrdzqb571 mm[Hg][facility]04-30-2024 20:32-0400Heart rate69 /[facility]SilverFair[facility]04-30-2024 20:31-0400Body kzdxnpotdhe09.7 [degF][facility]04-30-2024 20:29-0400Mean blood atzfnkst48 mm[Hg] [facility]04-30-2024 15:13-0400Body gyiibdwucnj03.88 [degF][facility]04-30-2024 15:13-0400Mean blood mngxawat17 mm[Hg][facility]04-30-2024 11:12-0400Mean blood wukapxle196 mm[Hg][facility]04-30-2024 11:11-0400Body gfbvzfmfnvu45.7 [degF][facility]04-30-2024 05:00-0400Body ukxjedwmsjn00.52 [degF][facility]04-30-2024 05:00-0400 Respiratory rate16 /[facility]04-30-2024 01:00-0400Blood Pressure LocationOhio[facility] 07-10-2023 01:00-0400Respiratory rate16 /audeliaOhio[facility]04-29-2024 16:24-0400Mean blood dxliqrie18 mm[Hg][facility]04-29-2024 14:00-0400Respiratory rate10 /minOhioHealth [facility]04-28-2024 21:57-0400Heart rate66 /min [facility]04-26-2024 13:07-0400Body height 170.2 cmAjohnny Dow 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 Work Phone: [facility]04-26-2024 13:07-0400Body mass index (BMI) [Ratio]29.76 kg/w5YaxqaDelfin Dow 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 Work Phone: [phone]04-26-2024 13:07-0400Body temperature 97.3 [degF]Delfin Dow 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 Work Phone: [phone]04-26-2024 13:07-0400Body zuvrym80.18 kgDelfin Dow 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 Work Phone: [phone]04-26-2024 13:07-0400Diastolic blood ylpbsuxa18 mm[Hg]Delfin Dow 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 Work Phone: [phone]04-26-2024 13:07-0400Heart rate61 /min Delfin Dow 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 Work Phone: [facility]04-26-2024 13:07-0400Respiratory rate 14 /minDelfin Dow APRN.MANUFACTURERS REPRESENTATIVE Work Phone: [phone]04-26-2024 13:07-3224VoP8% (BldA) [Mass fraction]97 %Delfin Dow 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 Work Phone: [phone]04-26-2024 13:07-0400Systolic blood mm[Hg]Delfin Dow APRN.MANUFACTURERS REPRESENTATIVE Work Phone: [facility]04-19-2024 10:33-0400Body .2 Selin Casarez 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 Work Phone: [place] [address]-19-2024 10:33-0400Body mass index (BMI) [Ratio]29.76 kg/m2Van Fagert 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 Work Phone: [phone]04-19-2024 10:33-0400Body temperature 97.2 [degF]Van Fagert 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 Work Phone: [phone]04-19-2024 10:33-0400Body lukgsa91.18 kgVan Fagert 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 Work Phone: [phone]04-19-2024 10:33-0400Diastolic blood dzummcup80 mm[Hg]Van Fagert FLOW MACHINE OPERATOR.[facility] Work Phone: [phone]04-19-2024 10:33-0400Heart rate56 /min Van Fagert 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 Work Phone: [phone]04-19-2024 10:33-0400Respiratory rate 13 /minVan Fagert 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 Work Phone: [phone]04-19-2024 10:33-1299PwB7% (BldA) [Mass fraction]97 %Van Fagert 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 Work Phone: [phone]04-19-2024 10:33-0400Systolic blood mm[Hg]Van Fagert 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 Work Phone: [phone]04-18-2024 14:03-0400Body uriekr255.18 cmDO Hardeep Magaly Work Phone: [facility]04-18-2024 14:03-0400 Body mass index (BMI) [Ratio]28.3 kg/m2DO Hardeep Magaly Work Phone: [facility]04-18-2024 14:03-0400 Body ylgofhskphf70 [degF]DO Hardeep Magaly Work Phone: [facility]04-18-2024 14:03-0400 Body nvnaet87.1 kgDO Hardeep Magaly Work Phone: [facility]04-18-2024 14:03-0400 Diastolic blood cusztniq22 mm[Hg]DO Hardeep Magaly Work Phone: [facility]04-18-2024 14:03-0400 Heart rate63 /minDO Hardeep Magaly Work Phone: [facility]04-18-2024 14:03-0400 Respiratory rate18 /minDO Hardeep Magaly Work Phone: [facility]04-18-2024 14:03-0400 SaO2% (BldA) [Mass fraction]97 %DO Hardeep Magaly Work Phone: [facility]04-18-2024 14:03-0400 Systolic blood fdpymsii670 mm[Hg]DO Hardeep Magaly Work Phone: [facility]04-15-2024 14:32-0400 Diastolic blood amieadlj82 mm[Hg]Hank Beard [facility]04-15-2024 14:32-0400Heart rate60 /minJomiguel ángel Beard [facility]04-15-2024 14:32-0400Mean blood gngmvfaz612 mm[Hg]Hank Beard [facility]04-15-2024 14:32-3966CxF9% (BldA) [Mass fraction]99 %Hank Beard [facility]04-15-2024 14:32-0400 Systolic blood wtapvhwl383 mm[Hg]Hank Beard [facility]04-15-2024 13:30-0400 Diastolic blood hquidpiq03 mm[Hg]Hank Beard [facility]04-15-2024 13:30-0400Heart rate53 /minHank Beard [address] [place], [place] 4354804-15-2024 13:30-0400Mean blood uqzxgehr587 mm[Hg]Hank Beard [address] [place], [place] 4354804-15-2024 13:30-4308BlZ5% (BldA) [Mass fraction]97 %Hank Beard [address] [place], [place] 4354804-15-2024 13:30-0400 Systolic blood fptuinhs402 mm[Hg]Hank Beard [address]04-15-2024 12:41-0400Body lwqvcuovcji99.7 [degF]Hank Beard [address] [place], [place] 4354804-15-2024 12:41-0400 Diastolic blood yhjjvzal13 mm[Hg]Hank Beard [address] [place], [place] 4354804-15-2024 12:41-0400Heart rate55 /Rani Beard [address] [place], [place] 4354804-15-2024 12:41-0400 Respiratory rate18 /Rani Beard [address] [place], [place] 4354804-15-2024 12:41-8927AfX1% (BldA) [Mass fraction]100 %Hank Beard [address] [place], [place] 4354804-15-2024 12:41-0400 Systolic blood urmzsqcx763 mm[Hg]Hank Beard [address] [place], [place] 4354804-11-2024 15:20-0400 Diastolic blood esnikaqr70 mm[Hg]Stacia Dwyer [address] [place], [place] 4354804-11-2024 15:20-0400Heart rate55 /minStacia Dwyer [address] [place], [place] 4354804-11-2024 15:20-0400Mean blood bnonlvar436 mm[Hg]Stacia Reymundo [address]04-11-2024 15:20-0400 Respiratory rate16 /minStacia Dwyer [address] [place], [place] 4354804-11-2024 15:20-1174YeA7% (BldA) [Mass fraction]96 %Stacia Reymundo [address]04-11-2024 15:20-0400 Systolic blood mm[Hg]Stacia Reymundo [address] [place], [place] 3316604-11-2024 15:00-0400Heart rate58 /minStacia Dwyer [address] [place], [place] 3316604-11-2024 15:00-7596OjW2% (BldA) [Mass fraction]97 %Stacia Dwyer [address]04-11-2024 12:18-0400Body kzssfpykjlj53.7 [degF]Stacialindsey Dwyer [address]04-11-2024 12:18-0400 Diastolic blood hcmbgodm41 mm[Hg]Stacia Reymundo [address]04-11-2024 12:18-0400Heart rate55 /minStacia Dwyer [address] [place], [place] 4354804-11-2024 12:18-0400 Respiratory rate18 /minStacia Dwyer [address] [place], [place] 4354804-11-2024 12:18-2366OjW2% (BldA) [Mass fraction]99 %Stacia Dwyer [address] [place], [place] 4354804-11-2024 12:18-0400 Systolic blood yltzwihz093 mm[Hg]Stacia Dwyer [address] [place], [place] 4354804-09-2024 12:08-0400Body katrle985.18 cmDO Hardeep Magaly Work Phone: [phone] [place], [place] 3787904-09-2024 12:08-0400 Body mass index (BMI) [Ratio]28 kg/m2DO Hardeep Magaly Work Phone: [phone])[address]04-09-2024 12:08-0400 Body bfuvuu48.19 kgDO Hardeep Magaly Work Phone: [phone])[address]04-09-2024 12:08-0400 Diastolic blood mm[Hg]DO Hardeep Magaly Work Phone: [phone]04-09-2024 12:08-0400 Heart rate53 /minDO Hardeep Magaly Work Phone: [phone]04-09-2024 12:08-0400 Respiratory rate18 /minDO Hardeep Magaly Work Phone: 1([phone] [place], [place] 3787904-09-2024 12:08-0400 SaO2% (BldA) [Mass fraction]93 %DO Hardeep Magaly Work Phone: [phone] [place], [place] 3787904-09-2024 12:08-0400 Systolic blood ygijogxa719 mm[Hg]DO Hardeep Magaly Work Phone: 1([phone] [place], [place] 3787904-08-2024 16:00-0400 Diastolic blood uiaevmlv24 mm[Hg][facility] 06-18-2023 16:00-0400Heart rate52 /[facility]04-08-2024 16:00-0400Mean blood manilzft418 mm[Hg][facility]04-08-2024 16:00-0400Respiratory rate22 /[facility]04-08-20[facility] 16:00-5153CaC5% (BldA) [Mass fraction]95 %[facility]04-08-2024 16:00-0400Systolic blood abkrwyot241 mm[Hg][facility]04-08-2024 15:00-0400Diastolic blood rjfbitco40 mm[Hg][facility]04-08-2024 15:00-0400Mean blood prraavnf374 mm[Hg][facility]04-08-2024 15:00-0400Respiratory rate16 /min[facility]04-08-2024 15:00-2643OuQ4% (BldA) [Mass fraction]98 %[facility]04-08-2024 15:00-0400Systolic blood icnermbz278 mm[Hg][facility]04-08-2024 14:00-0400Heart rate50 /[facility]04-08-2024 14:00-0400Respiratory rate20 /[facility] 06-18-2023 13:02-0400Body tnfwfpuvvvx87.06 [degF][facility]04-08-2024 13:02-0400Diastolic blood dqfyksip59 mm[Hg][facility]04-08-2024 13:02-0400Heart rate58 /[facility]04-08-2024 13:02-0400Respiratory rate18 /[facility]04-08-2024 13:02-0400Systolic blood dvjixeuq137 mm[Hg][facility]04-07-2024 17:14-0400Diastolic blood sokuornt28 mm[Hg][facility]04-07-2024 17:14-0400Heart rate51 /[facility]04-07-2024 17:14-0400Mean blood xnuzydyo717 mm[Hg][facility]04-07-2024 17:14-0400Respiratory rate16 /min[facility]04-07-2024 17:14-9519KgX0% (BldA) [Mass fraction]98 %[facility]04-07-2024 17:14-0400Systolic blood blkzbzuh023 mm[Hg][facility]04-07-2024 15:59-0400Body vddvssgilme21.52 [degF][facility]04-07-2024 15:59-0400Diastolic blood sgelexgd98 mm[Hg][facility]04-07-2024 15:59-0400Heart rate56 /min[facility]04-07-2024 15:59-0400Respiratory rate18 /[facility]04-07-2024 15:59-1827SlD9% (BldA) [Mass fraction]100 %[facility]04-07-2024 15:59-0400 Systolic blood dffqlohl565 mm[Hg][facility] 06-16-2023 08:42-0400Diastolic blood tljrtuej67 mm[Hg]James Nguyen [facility]04-06-2024 08:42-0400Heart rate62 /minJames Nguyen [facility]04-06-2024 08:42-0400Mean blood vggxbayy743 mm[Hg]James Nguyen [facility]04-06-2024 08:42-0400 Respiratory rate17 /minJames Nguyen [facility]04-06-2024 08:42-5441ZjJ7% (BldA) [Mass fraction]96 %James Nguyen [address]04-06-2024 08:42-0400 Systolic blood lrelsttt014 mm[Hg]James Nguyen [address] [place], [place] 4354804-06-2024 07:33-0400 Diastolic blood kqhkafmd53 mm[Hg]James Nguyen [address]04-06-2024 07:33-0400Heart rate64 /minTim Patrick [address]04-06-2024 07:33-0400Mean blood mfimiail624 mm[Hg]James Nguyen [address] [place], [place] [id number] 07:33-0400 Respiratory rate16 /minTim Patrick [address] [place], [place] [id number] 07:33-6972FeH7% (BldA) [Mass fraction]96 %James Nguyen [address]04-06-2024 07:33-0400 Systolic blood mm[Hg]James Nguyen [address] [place], [place] [id number] 06:47-0400 Diastolic blood aorhujjm00 mm[Hg]James Nguyen [address] [place], [place] [id number] 06:47-0400Heart rate68 /minTim Patrick [address] [place], [place] 4354804-06-2024 06:47-0400Mean blood sgpuooqo748 mm[Hg]James Nguyen [address] [place], [place] [id number] 06:47-0400 Respiratory rate16 /minTim Patrick [address] [place], [place] [id number] 06:47-3662IpH4% (BldA) [Mass fraction]95 %James Nguyen [address] [place], [place] 4354804-06-2024 06:47-0400 Systolic blood yhddhygc355 mm[Hg]James Nguyen [facility]04-06-2024 04:19-0400Body ngxyqsfgclz93.7 [degF]James Nguyen [facility]04-06-2024 04:19-0400Heart rate95 /minTim Patrick [facility]04-06-2024 04:19-0400 Respiratory rate18 /minTim Patrick [address] [place], [place] 4354804-05-2024 10:04-0400Body diyyjr202.2 cmNoé Lilly MD Work Phone: [facility]04-05-2024 10:04-0400Body ymccgz81.64 kgNoé Lilly MD Work Phone: [facility]04-05-2024 10:04-0400Diastolic blood ogspgtbe76 mm[Hg]Noé Lilly MD Work Phone: [facility]04-05-2024 10:04-0400Heart rate69 /min Noé Lilly MD Work Phone: [facility]04-05-2024 10:04-1369FtA0% (BldA) [Mass fraction]99 %Noé Lilly MD Work Phone: [facility]04-05-2024 10:04-0400Systolic blood jugauhsm733 mm[Hg]Noé Lilly MD Work Phone: [facility]04-04-2024 07:00-0400Diastolic blood mm[Hg]Do Montez [facility]04-04-2024 07:00-0400Heart rate77 /minDo Montez [facility]04-04-2024 07:00-0400Mean blood ferlohuk481 mm[Hg]Kaylinn Dokken [address] [place], [place] [id number] 07:00-5361XmO3% (BldA) [Mass fraction]88 %Kaylinn Dokken [address] [place], [place] [id number] 07:00-0400 Systolic blood mm[Hg]Kaylinn Dokken [address] [place], [place] 3316604-04-2024 06:00-0400 Diastolic blood mm[Hg]Kaylinn Dokken [address] [place], [place] [id number] 06:00-0400Heart rate53 /minKaylinn Dokken [address] [place], [place] 3316604-04-2024 06:00-0400Mean blood hfimhabn65 mm[Hg]Kaylinn Dokken [address] [place], [place] 3316604-04-2024 06:00-0400 Respiratory rate11 /minKaylinn Dokken [address] [place], [place] 3316604-04-2024 06:00-0664WzV4% (BldA) [Mass fraction]95 %Kaylinn Dokken [address] [place], [place] 3316604-04-2024 06:00-0400 Systolic blood mm[Hg]Kaylinn Dokken [address] [place], [place] [id number] 05:14-0400Body rdkkgzlaodm07.7 [degF]Kaylinn Dokken [address] [place], [place] 3316604-04-2024 05:14-0400 Diastolic blood ppcrpiva32 mm[Hg]Kaylinn Dokken [address] [place], [place] [id number] 05:14-0400Heart rate60 /minDo Stouten [address] [place], [place] 4354804-04-2024 05:14-0400 Respiratory rate20 /minMary Bethylinn Dokken [address] [place], [place] 4354804-04-2024 05:14-5705FgD0% (BldA) [Mass fraction]100 %Do Montez [address] [place], [place] 4354804-04-2024 05:14-0400 Systolic blood sxpottlr708 mm[Hg]Do Montez [address]03-29-2024 20:00-0400 Diastolic blood mddolsgy44 mm[Hg]James Nguyen [address] [place], [place] 4354803-29-2024 20:00-0400Mean blood yjlumkfm37 mm[Hg]James Nguyen [address] [place], [place] 4354803-29-2024 20:00-0400 Respiratory rate11 /minJames Nguyen [address] [place], [place] 4354803-29-2024 20:00-8421MdD8% (BldA) [Mass fraction]92 %James Nguyen [address] [place], [place] 4354803-29-2024 20:00-0400 Systolic blood xovzehgn575 mm[Hg]James Nguyen [address] [place], [place] 4354803-29-2024 19:00-0400 Diastolic blood mm[Hg]James Nguyen [address] [place], [place] 4354803-29-2024 19:00-0400Mean blood veebwplp53 mm[Hg]James Nguyen [address] [place], [place] 4354803-29-2024 19:00-0400 Respiratory rate10 /minTim Patrick [address] [place], [place] 4354803-29-2024 19:00-1997UhO2% (BldA) [Mass fraction]98 %James Nguyen [address] [place], [place] 4354803-29-2024 19:00-0400 Systolic blood qlxmnyzr807 mm[Hg]James Nguyen [address] [place], [place] 3316603-29-2024 18:58-0400 Diastolic blood mm[Hg]James Nguyen [address] [place], [place] 4354803-29-2024 18:58-0400Heart rate51 /minTim Patrick [address] [place], [place] 3316603-29-2024 18:58-0400Mean blood ukmojsuk992 mm[Hg]James Nguyen [address] [place], [place] 3316603-29-2024 18:58-0400 Respiratory rate13 /minTim Patrick [address] [place], [place] 3316603-29-2024 18:58-4913JbP0% (BldA) [Mass fraction]97 %James Nguyen [address] [place], [place] 4354803-29-2024 18:58-0400 Systolic blood gscaimnx045 mm[Hg]James Nguyen [address] [place], [place] 3316603-29-2024 16:38-0400 Respiratory rate18 /minTim Patrick [address] [place], [place] 4354803-29-2024 15:30-0400 Respiratory rate18 /minTim Patrick [address] [place], [place] 4354803-29-2024 14:13-0400Body cudnlhuddfn09.7 [degF]James Nguyen [address] [place], [place] 4354803-29-2024 14:13-0400Heart rate55 /minTim Patrick [address] [place], [place] 4354803-29-2024 14:13-0400 Respiratory rate16 /minTim Patrick [facility]03-20-2024 16:06-0400 Diastolic blood uqhbyclh21 mm[Hg]DO Hardeep Magaly Work Phone: 1(502)001-[facility]03-20-2024 16:06-0400 Systolic blood jmucvily598 mm[Hg]DO Hardeep Magaly Work Phone: 1(925)290-[address] [place], [place] 3787903-20-2024 15:34-0400 Body wmjnza078.18 cmDO Hardeep Magaly Work Phone: 1(108)[address]03-20-2024 15:34-0400 Body mass index (BMI) [Ratio]28 kg/m2DO Hardeep Magaly Work Phone: 1(153)[address]03-20-2024 15:34-0400 Body dweumm79.19 kgDO Hardeep Magaly Work Phone: 1(296)[address]03-20-2024 15:34-0400 Diastolic blood bgfutnmh84 mm[Hg]DO Hardeep Magaly Work Phone: 1(971)[address]03-20-2024 15:34-0400 Heart rate54 /minDO Hardeep Magaly Work Phone: 1(426)[address]03-20-2024 15:34-0400 Respiratory rate18 /minDO Hardeep Magaly Work Phone: 1(574)4-[address] [place], [place] 3787903-20-2024 15:34-0400 SaO2% (BldA) [Mass fraction]99 %DO Hardeep Magaly Work Phone: 1(414)1-[address] [place], [place] 3787903-20-2024 15:34-0400 Systolic blood jsnsexvo357 mm[Hg]DO Hardeep Magaly Work Phone: 1(194)[address]03-04-2024 13:09-0500 Body xzfxho154.18 cmDO Hardeep Magaly Work Phone: 1(737)[address]03-04-2024 13:09-0500 Body mass index (BMI) [Ratio]28.6 kg/m2DO Hardeep Magaly Work Phone: [facility]03-04-2024 13:09-0500 Body uezyvf49 kgDO Hardeep Magaly Work Phone: [facility]03-04-2024 13:09-0500 Diastolic blood kodrcycs28 mm[Hg]DO Hardeep Magaly Work Phone: [facility]03-04-2024 13:09-0500 Heart rate57 /minDO Hardeep Magaly Work Phone: 1(196)308-[address] [place], [place] 3787903-04-2024 13:09-0500 SaO2% (BldA) [Mass fraction]96 %DO Hardeep Magaly Work Phone: [facility]03-04-2024 13:09-0500 Systolic blood uxcntbac286 mm[Hg]DO Hardeep Magaly Work Phone: [facility]02-22-2024 11:50-0500 Diastolic blood mm[Hg]Stacia Dwyer [facility]02-22-2024 11:50-0500Heart rate68 /Panchito Dwyer [facility]02-22-2024 11:50-0500Mean blood suqtwgqj56 mm[Hg]Stacia Dwyer [facility]02-22-2024 11:50-0500 Respiratory rate20 /minStacia Dwyer [facility]02-22-2024 11:50-3914GpK8% (BldA) [Mass fraction]98 %Stacia Dwyer [facility]02-22-2024 11:50-0500 Systolic blood mm[Hg]Stacia Dwyer [address] [place], [place] 4354802-22-2024 11:40-0500 Diastolic blood walrcsqx79 mm[Hg]Stacia Dwyer [address] [place], [place] 4354802-22-2024 11:40-0500Heart rate65 /minStacia Dwyer [address] [place], [place] 4354802-22-2024 11:40-0500Mean blood diooyzuz96 mm[Hg]Stacia Dwyer [address]02-22-2024 11:40-0500 Respiratory rate17 /minStacia Dwyer [address] [place], [place] 4354802-22-2024 11:40-1450PwW0% (BldA) [Mass fraction]91 %Stacia Dwyer [address] [place], [place] 4354802-22-2024 11:40-0500 Systolic blood rvkrbiev641 mm[Hg]Stacia Dwyer [address] [place], [place] 4354802-22-2024 11:30-0500 Diastolic blood mm[Hg]Stacia Dwyer [address] [place], [place] 4354802-22-2024 11:30-0500Heart rate64 /minStacia Dwyer [address] [place], [place] 4354802-22-2024 11:30-0500Mean blood fmocuvso81 mm[Hg]Stacia Dwyer [address] [place], [place] 4354802-22-2024 11:30-0500 Respiratory rate15 /minStacia Dwyer [address] [place], [place] 4354802-22-2024 11:30-3868SiR0% (BldA) [Mass fraction]97 %Stacia Dwyer [address] [place], [place] 4354802-22-2024 11:30-0500 Systolic blood vmpwoufm405 mm[Hg]Stacia Dwyer [facility]02-22-2024 10:19-0500Heart rate57 /minStacia Dwyer [facility]02-22-2024 09:04-0500Body ovwhebdtfuv74.88 [degF]Stacia Dwyer [facility]02-22-2024 09:04-0500Heart rate60 /minAshramakrishna Dwyer [facility]02-22-2024 09:04-0500 Respiratory rate19 /minStacia Dwyer [facility]02-19-2024 21:45-0500 Diastolic blood edmddxhh94 mm[Hg]DO Hardeep Magaly Work Phone: [facility]02-19-2024 21:45-0500 Heart rate69 /minDO Hardeep Magaly Work Phone: [facility]02-19-2024 21:45-0500 Respiratory rate18 /minDO Hardeep Magaly Work Phone: [facility]02-19-2024 21:45-0500 SaO2% (BldA) [Mass fraction]98 %DO Hardeep Magaly Work Phone: [facility]02-19-2024 21:45-0500 Systolic blood dsmbciac539 mm[Hg]DO Hardeep Magaly Work Phone: [facility]02-19-2024 15:16-0500 Body esdurb086.18 cmDO Hardeep Magaly Work Phone: [facility]02-19-2024 15:16-0500 Body lropxpanbiz02.6 [degF]DO Hardeep Magaly Work Phone: [facility]02-19-2024 15:16-0500 Body ywyncf76.1 kgDO Hardeep Magaly Work Phone: [facility]02-09-2024 11:00-0500 Diastolic blood hlnwzkup57 mm[Hg]Kaylinn Dokken [address] [place], [place] 4354802-09-2024 11:00-0500Mean blood awpvsopc047 mm[Hg]Kaylinn Dokken [address] [place], [place] 3316602-09-2024 11:00-2374HdM0% (BldA) [Mass fraction]91 %Kaylinn Dokken [address] [place], [place] 3316602-09-2024 11:00-0500 Systolic blood rhrwxjji367 mm[Hg]Kaylinn Dokken [address] [place], [place] 3316602-09-2024 10:09-0500 Diastolic blood wjxswnje519 mm[Hg]Kaylinn Dokken [address] [place], [place] 3316602-09-2024 10:09-0500Heart rate66 /minKaylinn Dokken [address] [place], [place] 3316602-09-2024 10:09-0500Mean blood rwfngjok506 mm[Hg]Kaylinn Dokken [address] [place], [place] 3316602-09-2024 10:09-0500 Respiratory rate14 /minKaylinn Dokken [address] [place], [place] 3316602-09-2024 10:09-5675UmQ9% (BldA) [Mass fraction]98 %Kaylinn Dokken [address] [place], [place] 3316602-09-2024 10:09-0500 Systolic blood vdwphute335 mm[Hg]Kaylinn Dokken [address] [place], [place] [id number] 09:04-0500 Diastolic blood afnbvjdl98 mm[Hg]Kaylinn Dokken [address] [place], [place] 3316602-09-2024 09:04-0500Heart rate65 /minMary Bethylinn Dorussen [address] [place], [place] 3316602-09-2024 09:04-0500Mean blood jldgzihi228 mm[Hg]Susun Argeliaen [address] [place], [place] 3316602-09-2024 09:04-0500 Respiratory rate17 /minMary Bethylinn Dokken [address] [place], [place] 3316602-09-2024 09:04-4409WwJ7% (BldA) [Mass fraction]94 %Susun Argeliaen [address] [place], [place] 3316602-09-2024 09:04-0500 Systolic blood aaogdvaf199 mm[Hg]Susun Argeliaen [address] [place], [place] 3316602-09-2024 06:01-0500gluc 135 mg/dLSusun Argeliaen [address] [place], [place] 3316602-09-2024 06:01-0500gluc Uliinn Argeliaen [address] [place], [place] [id number] 05:49-0500Blood Pressure LocationSusun Argeliaen [address] [place], [place] [id number] 05:32-0500Body ejxavztdkba20.7 [degF]Susun Argeliaen [address] [place], [place] [id number] 05:32-0500Heart rate61 /minMary Bethylinn Dokken [address] [place], [place] 3316602-09-2024 05:32-0500 Respiratory rate16 /minMary Bethylinn Dokken [address] [place], [place] 3316602-05-2024 15:00-0500Body icocus175.1 cmLinda Michael Other [employer] Other [id number] 15:00-0500Body mass index (BMI) [Ratio] 30.28 kg/e0Yvvbq Michael Other [employer] Other 02-05-2024 15:00-0500Body .56 kgLinda Michael Other [facility] Other 02-05-2024 15:00-0500Diastolic blood iepyhknf18 mm[Hg] Theodora [facility] Other [facility] Other 02-05-2024 15:00-0500Respiratory rate20 /minLinda Michael Other [employer] Other 02-05-2024 15:00-8250HdK3% (BldA) [Mass fraction]91 % Theodora Michael Other [employer] Other 02-05-2024 15:00-0500Systolic blood nfdekyck300 mm[Hg] Theodora Michael Other [employer] Other 12-04-2023 14:40-0500Body siwgbt227.1 cmLinda Michael Other [facility]12-04-2023 14:40-0500 Body mass index (BMI) [Ratio]29.95 kg/f3Bslwl Michael Other [employer] Other 12-04-2023 14:40-0500Body tibhkq42.65 kgLinda Michael Other [employer] Other 12-04-2023 14:40-0500Body bvbeks39.64 kgDO HardeepDoYouRemember Work Phone: [facility]12-04-2023 14:40-0500 Diastolic blood nbqughbr18 mm[Hg]Theodora Michael Other [facility]12-04-2023 14:40-0500 Respiratory rate20 /minLinda Michael Other [employer] Other [id number] 14:40-4148ZmK4% (BldA) [Mass fraction]96 % Theodora Michael Other [employer] Other 12-04-2023 14:40-0500Systolic blood mm[Hg] Theodora Michael Other [facility]11-09-2023 10:00-0500 Body .1 cmLinda Michael Other [employer] Other 11-09-2023 10:00-0500Body mass index (BMI) [Ratio] 30.28 kg/b3Mngkv Michael Other [employer] Other 11-09-2023 10:00-0500Body .56 kgLinda Michael Other [employer] Other 11-09-2023 10:00-0500Diastolic blood pxvtictz92 mm[Hg] Theodora Michael Other [employer] Other 11-09-2023 10:00-0500Respiratory rate18 /minLinda Michael Other [employer] Other 11-09-2023 10:00-2318NpJ0% (BldA) [Mass fraction]99 % Theodora Rodriguez Other [employer] Other 11-09-2023 10:00-0500Systolic blood sbixktvi600 mm[Hg] Theodora Michael Other [employer] Other 08-29-2023 11:30-0400Body qonblv556.1 cmTonia Mcdonough Other [employer] Other 08-29-2023 11:30-0400Body mass index (BMI) [Ratio] 30.78 kg/o5UjflktTonia Mcdonough Other [employer] Other 08-29-2023 11:30-0400Body dtvflopdxor46.6 [degF]Tonia Mcdonough Other [employer] Other 08-29-2023 11:30-0400Body .92 kgTonia Mcdonough Other [employer] Other 08-29-2023 11:30-0400Diastolic blood bryveljx24 mm[Hg] Tonia Mcdonough Other [employer] Other 08-29-2023 11:30-5663KmA1% (BldA) [Mass fraction]96 % Tonia Mcdonough Other [employer] Other 08-29-2023 11:30-0400Systolic blood tfzzoarv664 mm[Hg] Tonia Mcdonough Other [employer] Other 08-24-2023 11:15-0400Body znricy732.1 cmThomas Olexa Other [employer] Other 08-24-2023 11:15-0400Body mass index (BMI) [Ratio] 30.78 kg/h1Hgxoqv Olexa Other [employer] Other 08-24-2023 11:15-0400Body ltvdeu55.92 kgThomas Olexa Other [employer] Other 07-17-2023 16:15-0400Body plelqd769.1 cmSeth Magaly Other [employer] Other 07-17-2023 16:15-0400Body mass index (BMI) [Ratio] 30.78 kg/m2Seth Magaly Other [employer] Other 07-17-2023 16:15-0400Body lmqfstofjqn26.1 [degF]Hardeep Magaly Other [employer] Other 07-17-2023 16:15-0400Body gwypxu56.92 kgSeth Magaly Other [employer] Other 07-17-2023 16:15-0400Diastolic blood kvaghisw19 mm[Hg] Hardeep Magaly Other [employer] Other 07-17-2023 16:15-0400Respiratory rate20 /minSeth Magaly Other [employer] Other 07-17-2023 16:15-6047FtY5% (BldA) [Mass fraction]96 % [facility]ep [facility] [employer] Other 07-17-2023 16:15-0400Systolic blood zmfjvyrb083 mm[Hg] Hardeep Magaly Other [place] [employer] Other 06-14-2023 11:59-0400Body bmdfiq429.18 cmSeth M Magaly Work Phone: 1(475) [phone]-Lnlwz [place] [facility] [address] Work Phone: 1(481) 837-806106-14-2023 11:59-0400Body mass index (BMI) [Ratio] 29.45 kg/m2Seth M Magaly Work Phone: 1(249) [phone]-[facility]lMad[facility] HospitalCloudabilitySav[facility] 600 DO Work Phone: 1(288) [phone] 11:59-0400Body surface area Derived from formula1.97 m2Seth M Magaly Work Phone: [phone]-Tjoos [place] [facility] [address] DO Work Phone: 1(736) 868-230206-14-2023 11:59-0400Body odotyg42.28 kgSeth M Magaly Work Phone: 1(614) [phone]-Vvuzq [place] [facility] [address] DO Work Phone: 1(132) 578-802106-14-2023 11:59-0400Diastolic blood vtidtgqo21 mm[Hg] Hardeep M Magaly Work Phone: 1(178) [phone]-Zjsge [place] [facility] [address] DO Work Phone: 1(478) 634-107706-14-2023 11:59-0400Heart rate62 /minSeth M Magaly Work Phone: [phone]-Jeqvf [place] [facility] [address] DO Work Phone: 1(141) 448-880906-14-2023 11:59-0400Systolic blood ldbavckx722 mm[Hg] Hardeep M Magaly Work Phone: 1(535) [phone]-Gswby [place] [facility] [address] DO Work Phone: 1(997) 918-104105-26-2023 15:07-0400Hourly RoundingGeorge Maidaa [facility]05-26-2023 15:07-0400 Promise to ReturnGeorge Maidaa [facility]05-26-2023 14:00-0400 Hourly RoundingGeorge Maidaa [facility]05-26-2023 14:00-0400 Promise to ReturnGeorge Maidaa [facility]05-26-2023 13:13-0400 Hourly RoundingGeorge Maidaa [facility]05-26-2023 13:13-0400 Promise to ReturnGeorge Maidaa [facility]05-26-2023 08:32-0400 Diastolic blood eljtprgb65 mm[Hg]Chidi Dumontidaa [facility]05-26-2023 08:32-0400Heart rate50 /minGeorge Maidaa [facility]05-26-2023 08:32-0400 Systolic blood tdteynzj614 mm[Hg]Chidi Dumontidaa [facility]05-26-2023 08:00-2252IiE5% (BldA) [Mass fraction]95 %Chidi Dumontidaa [facility]05-26-2023 07:41-0400Heart rate53 /minGeorge Maidaa [facility]05-26-2023 07:41-1154CkL8% (BldA) [Mass fraction]92 %Chidi Marrero [facility]05-26-2023 07:39-0400 Diastolic blood rdbqfgoi65 mm[Hg]Chidi Marrero [facility]05-26-2023 07:39-0400Mean blood lpjrxogn787 mm[Hg]Chidi Marrero [facility]05-26-2023 07:39-0400 Systolic blood amdhtdoh380 mm[Hg]Chidi Marrero [facility]05-26-2023 07:39-0400Body vhmuknlupah05.34 [degF]Chidi Marrero [facility]05-26-2023 05:43-0400Blood Pressure LocationGeorge Janes [facility]05-26-2023 05:43-0400Body edkufrwaeih44.7 [degF]Chidi Marrero [facility]05-26-2023 05:43-0400Heart rate71 /minGeorge Janes [facility]05-26-2023 05:43-0400Mean blood juucudkf05 mm[Hg]Chidi Marrero [facility]05-26-2023 05:43-0400Mean blood bnzxbyaw075 mm[Hg]Chidi Marrero [facility]05-26-2023 05:43-0400 Respiratory rate18 /minGeorge Janes [facility]05-26-2023 05:43-8446UyT1% (BldA) [Mass fraction]96 %Chidi Marrero [facility]05-25-2023 23:39-0400Blood Pressure LocationGeorge Maidaa [facility]05-25-2023 23:39-0400Body blbbytzbjii65.06 [degF]Chidi Marrero [facility]05-25-2023 23:39-0400Heart rate67 /minGeorge Maidaa [address] [place], [place] 4007705-25-2023 23:39-0400Mean blood mbpmimcz16 mm[Hg]Chidi Marrero [address] [place], [place] 4007705-25-2023 23:39-0400Mean blood ngzdkiuc88 mm[Hg]Chidi Marrero [address] [place], [place] 4007705-25-2023 23:39-0400 Respiratory rate18 /minGeorge Maidaa [address] [place], [place] 0124205-25-2023 19:00-0400 Respiratory rate19 /minGeorge Maidaa [address]05-25-2023 08:27-0400Heart rate52 /minGeorge Maidaa [address] [place], [place] 4007705-24-2023 08:13-0400Heart rate58 /minGeorge Maidaa [facility]05-24-2023 05:02-0400Heart rate71 /minGeorge Maidaa [address] [place], [place] 4007705-24-2023 05:02-0400Mean blood hdbvwapp26 mm[Hg]Chidi Marrero [address] [place], [place] 0124205-23-2023 23:30-0400Heart rate78 /minGeorge Maidaa [address] [place], [place] 0124205-23-2023 23:00-0400 Respiratory rate12 /minGeorge Maidaa [facility]05-23-2023 21:00-0400 Respiratory rate18 /minGeorge Maidaa [facility]05-23-2023 20:00-0400 Respiratory rate20 /minGeorge Maidaa [facility]05-23-2023 17:25-0400gluc 141 mg/dLGeorge Maidaa [facility]05-23-2023 17:25-0400gluc Chidi Juliaidaa [facility]05-23-2023 17:08-0400Heart rate60 /minGeorge Maidaa [facility]05-16-2023 11:31-0400 Diastolic blood hbcndlme71 mm[Hg]Hardeep M Magaly Work Phone: 1(385) [phone]-IdmugOwatonna Hospital 600 DO Work Phone: 1(173) 833-395805-16-2023 11:31-0400Systolic blood zfdyviyu045 mm[Hg] Hardeep M Magaly Work Phone: 1(433) [phone]-MrvalOwatonna Hospital 600 DO Work Phone: 1(869) 935-700205-16-2023 11:09-0400Body uqazix224.18 cmSeth M Magaly Work Phone: 1(303) [phone]-QppomOwatonna Hospital 600 DO Work Phone: 1(124) [phone] 11:09-0400Body mass index (BMI) [Ratio] 29.29 kg/m2Seth M Magaly Work Phone: 1(193) [phone]-UotfqOwatonna Hospital 600 DO Work Phone: 1(856) 955-922205-16-2023 11:09-0400Body surface area Derived from formula1.97 m2Seth M Magaly Work Phone: 1(942) [phone]-BqcqtOwatonna Hospital 600 DO Work Phone: 1(748) 444-532505-16-2023 11:09-0400Body gdyiby48.82 kgSeth M Magaly Work Phone: 1(346) [phone]-ZnvljOwatonna Hospital 600 DO Work Phone: 1(591) 284-607305-16-2023 11:09-0400Diastolic blood mzennuim41 mm[Hg] Hardeep M Magaly Work Phone: 1(544) [phone]-XaltiOwatonna Hospital 600 DO Work Phone: 1(517) [phone] 11:09-0400Heart rate62 /minSeth M Magaly Work Phone: 1(900) [phone]-YouonOwatonna Hospital 600 DO Work Phone: 1(904) 319-268705-16-2023 11:09-0400Systolic blood ztguwuwy856 mm[Hg] Hardeep M Magaly Work Phone: 1(384) [phone]-TiudqOwatonna Hospital 600 DO Work Phone: 1(846) 480-165204-20-2023 13:34-0400Hourly RoundingManinder Nathaniel [facility]04-20-2023 13:34-0400 Promise to ReturnManinder Nathaniel [facility]04-20-2023 12:16-0400 Hourly RoundingManinder Nathaniel [facility]04-20-2023 12:16-0400 Promise to ReturnManinder Nathaniel [facility]04-20-2023 11:59-0400 Hourly RoundingManinder Nathaniel [facility]04-20-2023 11:59-0400 Promise to ReturnManinder Nathaniel [facility]04-20-2023 11:00-0400Body deivstbfshc08.34 [degF]Gordy Nathaniel [address] [place], [place] 1687704-20-2023 11:00-0400 Diastolic blood otvbcydi13 mm[Hg]Gordy Nathaniel [address] [place], [place] 1687704-20-2023 11:00-0400Heart rate66 /minGordy Cuier [address] [place], [place] 1687704-20-2023 11:00-0400 Systolic blood fluzdvcm995 mm[Hg]Gordy Nathaniel [address]04-20-2023 10:33-0400 Diastolic blood axlsqrhu79 mm[Hg]Gordy Cuier [address] [place], [place] 1684704-20-2023 10:33-0400 Systolic blood pquevqio474 mm[Hg]Gordy Cuier [address] [place], [place] 1684704-20-2023 08:17-5711OvP4% (BldA) [Mass fraction]96 %Gordy Cuier [address] [place], [place] 1684704-20-2023 08:08-0400 Diastolic blood mm[Hg]Gordy Cuier [address] [place], [place] 1684704-20-2023 08:08-0400Heart rate68 /minGordy Cuier [address] [place], [place] 1687704-20-2023 08:08-0400 Systolic blood tbqckqhy740 mm[Hg]Gordy Nathaniel [address] [place], [place] 1687704-20-2023 08:01-0400Blood Pressure LocationManguzman Nathaniel [address] [place], [place] 1684704-20-2023 08:01-0400Heart rate69 /minGordy Nathaniel [address] [place], [place] 1684704-20-2023 08:01-0400Mean blood pszfoffj771 mm[Hg]Gordy Cuier [address] [place], [place] 1684704-20-2023 08:01-0400 Respiratory rate16 /minGordy Cuier [address] [place], [place] 1684704-20-2023 08:01-0608CpI7% (BldA) [Mass fraction]95 %Gordy Nathaniel [address] [place], [place] 1684704-20-2023 07:00-0400Body pchmnmyofcw07.7 [degF]Gordy Nathaniel [address] [place], [place] 1684704-20-2023 07:00-0400Heart rate63 /minGordy Cuier [address] [place], [place] 1684704-20-2023 00:46-0400Blood Pressure LocationGordy Nathaniel [address] [place], [place] 1684704-20-2023 00:46-0400Body orxzgsusebq23.52 [degF]Gordy Nathaniel [address] [place], [place] 1684704-20-2023 00:46-0400 Respiratory rate18 /minGordy Cuier [address] [place], [place] 1684704-19-2023 19:06-0400Mean blood chsbbsiz306 mm[Hg]Gordy Nathaniel [address] [place], [place] 1684704-19-2023 16:21-0400Mean blood gszwowlp123 mm[Hg]Gordy Nathaniel [address] [place], [place] 1684704-19-2023 09:42-0400Heart rate66 /minGordy Nathaniel [address] [place], [place] 1684704-19-2023 08:03-0400Mean blood tivgmoaf355 mm[Hg]Gordy Nathaniel [address] [place], [place] 1684704-19-2023 04:45-0400Mean blood biyvfccr99 mm[Hg]Gordy Nathaniel [address] [place], [place] 1684704-19-2023 00:30-0400Mean blood rqtgadna30 mm[Hg]Gordy Nathaniel [facility]04-18-2023 17:52-0400Heart rate64 /minManinder Nathaniel [facility]04-18-2023 16:00-0400 Respiratory rate19 /minGordy Nathaniel [facility]04-18-2023 15:00-0400 Respiratory rate16 /minManguzman Nathaniel [facility]04-18-2023 10:06-0400Heart rate92 /minGordy Nathaniel [facility]04-18-2023 10:06-0400 Respiratory rate20 /minGordy Cuier [facility]04-10-2023 15:15-0400Body ijzkfd494.1 cmSeth Magaly Other [place] [employer] Other 04-10-2023 15:15-0400Body mass index (BMI) [Ratio] 31.95 kg/m2Seth Magaly Other [place] [employer] Other 04-10-2023 15:15-0400Body jhmghjdyrfx84.1 [degF]Hardeep Magaly Other [place] [employer] Other 04-10-2023 15:15-0400Body .09 kgSeth Magaly Other [place] [employer] Other 04-10-2023 15:15-0400Diastolic blood wviglerg68 mm[Hg] Hardeep Magaly Other [place] [employer] Other 04-10-2023 15:15-0400Respiratory rate20 /minSeth Magaly Other [employer] Other 04-10-2023 15:15-0785HhL7% (BldA) [Mass fraction]96 % Hardeep Magaly Other [employer] Other 04-10-2023 15:15-0400Systolic blood yvoqynkf123 mm[Hg] Hardeep Magaly Other [employer] Other 01-26-2023 14:30-0500Body tmvefx838.1 cmSeth Magaly Other [employer] Other 01-26-2023 14:30-0500Body mass index (BMI) [Ratio] 31.45 kg/m2Seth Magaly Other [employer] Other 01-26-2023 14:30-0500Body xjofbhquifg21.5 [degF]Hardeep Magaly Other [employer] Other 01-26-2023 14:30-0500Body nyylif11.73 kgSeth Magaly Other [employer] Other 01-26-2023 14:30-0500Diastolic blood zqtmuipg74 mm[Hg] Hardeep Magaly Other [employer] Other 01-26-2023 14:30-0500Respiratory rate20 /minSeth Magaly Other [employer] Other 01-26-2023 14:30-5795YfS2% (BldA) [Mass fraction]95 % Hardeep Magaly Other [employer] Other 01-26-2023 14:30-0500Systolic blood tcwywhoo823 mm[Hg] Hardeep Magaly Other [employer] Other 01-10-2023 15:45-0500Body .1 cmSeth Magaly Other [employer] Other 01-10-2023 15:45-0500Body mass index (BMI) [Ratio] 31.12 kg/m2Seth Magaly Other [employer] Other 01-10-2023 15:45-0500Body .5 [degF]Hardeep Magaly Other [employer] Other 01-10-2023 15:45-0500Body vtknta85.82 kgSeth Magaly Other [employer] Other 01-10-2023 15:45-0500Diastolic blood rsusrfwj86 mm[Hg] Hardeep Magaly Other [employer] Other 01-10-2023 15:45-0500Respiratory rate20 /minSeth Magaly Other [employer] Other 01-10-2023 15:45-9152BnS8% (BldA) [Mass fraction]99 % Hardeep Magaly Other [employer] Other 01-10-2023 15:45-0500Systolic blood kvzexvxt411 mm[Hg] Hardeep Magaly Other [employer] Other 12-05-2022 17:00-0500Body nwsduo382.1 cmSeth Magaly Other [employer] Other 12-05-2022 17:00-0500Body mass index (BMI) [Ratio] 32.11 kg/m2Seth Magaly Other [employer] Other 12-05-2022 17:00-0500Body elartwixkjz20.6 [degF]Hardeep Magaly Other [employer] Other 12-05-2022 17:00-0500Body owklgp86.54 kgSeth Magaly Other [employer] Other 12-05-2022 17:00-0500Diastolic blood hpyiaeuk86 mm[Hg] Hardeep Magaly Other [employer] Other 12-05-2022 17:00-0500Respiratory rate20 /minSeth Magaly Other [employer] Other 12-05-2022 17:00-5331MpX0% (BldA) [Mass fraction]97 % Hardeep Magaly Other [employer] Other 12-05-2022 17:00-0500Systolic blood sxdpjnfi308 mm[Hg] Hardeep Magaly Other [employer] Other 11-24-2022 06:00-0500Diastolic blood zsuvigyp50 mm[Hg] Benton Sutherland [address]11-24-2022 06:00-0500 Systolic blood ntzoyefw027 mm[Hg]Benton Koko [address] [place], [place] 4354811-24-2022 05:33-0500Body kpwkjohftwo14.98 [degF]Benton Koko [address] [place], [place] 4354811-24-2022 05:33-0500 Diastolic blood mmcitxga88 mm[Hg]Benton Koko [address] [place], [place] 4354811-24-2022 05:33-0500Heart rate68 /minNoah Koko [address] [place], [place] 4354811-24-2022 05:33-0500 Respiratory rate16 /minNoah Koko [address] [place], [place] 4354811-24-2022 05:33-4467ImZ0% (BldA) [Mass fraction]100 %Benton Koko [address] [place], [place] 4354811-24-2022 05:33-0500 Systolic blood bbtbmnso157 mm[Hg]Benton Koko [address] [place], [place] 4354811-24-2022 05:01-0500 Diastolic blood igowodej023 mm[Hg]Et3 PhtmksmrRkkouHvjqqm01-95-7980 05:01-0500 Heart rate80 /minEt3 CdxxvqwvCwqkjEjonkr25-82-7394 05:01-0500Respiratory rate18 /minEt3 LwqcobwyKfwugFkxbpa43-01-4187 05:01-0583UeI0% (BldA) [Mass fraction]97 % Et3 IrztsmcjEzpgcVvtbkz56-84-7606 05:01-0500Systolic blood mlnomven430 mm[Hg]Et3 AzivurgjNpyjaNeurmh06-74-7586 15:15-0500Body xzhitn655.1 cmSeth Magaly Other [place] [employer] Other 11-09-2022 15:15-0500Body mass index (BMI) [Ratio] 32.28 kg/m2Seth Magaly Other [employer] Other 11-09-2022 15:15-0500Body noagqhqoddo04.1 [degF]Hardeep Magaly Other [employer] Other 11-09-2022 15:15-0500Body chvrhu54 kgSeth Magaly Other [employer] Other 11-09-2022 15:15-0500Diastolic blood vedjnsam39 mm[Hg] Hardeep Magaly Other [employer] Other 11-09-2022 15:15-0500Respiratory rate20 /minSeth Magaly Other [place] [employer] Other 11-09-2022 15:15-8166EiV5% (BldA) [Mass fraction]97 % Hardeep Magaly Other [employer] Other 11-09-2022 15:15-0500Systolic blood uofmmgbe906 mm[Hg] Hardeep Magaly Other [facility] [employer] Other 10-13-2022 12:33-0400Diastolic blood cldyjruw72 mm[Hg] Hardeep M Magaly Work Phone: 1(329) [phone]-Uyhxa [place] [employer] [address] DO Work Phone: 1(676) 646-547410-13-2022 12:33-0400Systolic blood nupyonlc955 mm[Hg] Hardeep M Magaly Work Phone: [phone]-Wbvyf [place] [employer] [address] DO Work Phone: 1(896) 609-764110-13-2022 12:24-0400Body acmakt707.18 cmSeth M Magaly Work Phone: 1(476) [phone]-HqxwvOwatonna Hospital 600 DO Work Phone: 1(228) 389-551310-13-2022 12:24-0400Body mass index (BMI) [Ratio]29.6 kg/m2Seth M Magaly Work Phone: 1(420) [phone]-DupkbOwatonna Hospital 600 DO Work Phone: 1(416) 794-141910-13-2022 12:24-0400Body surface area Derived from formula1.97 m2Seth M Magaly Work Phone: 1(328) [phone]-IgvkmOwatonna Hospital 600 DO Work Phone: 1(587) 972-838810-13-2022 12:24-0400Body zdhore21.73 kgSeth M Magaly Work Phone: 1(580) [phone]-JmdkkOwatonna Hospital 600 DO Work Phone: 1(759) 301-545210-13-2022 12:24-0400Diastolic blood wmapylof27 mm[Hg] Hardeep M Magaly Work Phone: 1(507) [phone]-WfimmOwatonna Hospital 600 DO Work Phone: 1(273) 946-401110-13-2022 12:24-0400Heart rate62 /minSeth M Magaly Work Phone: 1(966) [phone]-BsmmdOwatonna Hospital 600 DO Work Phone: 1(263) 536-123210-13-2022 12:24-0400Systolic blood ahgqunio85 mm[Hg] Hardeep M Magaly Work Phone: 1(840) [phone]-FoctqOwatonna Hospital 600 DO Work Phone: 1(376) 679-904710-11-2022 11:45-0400Body ezppil590.1 cmSeth Magaly Other [place] [employer] Other 10-11-2022 11:45-0400Body mass index (BMI) [Ratio] 31.28 kg/m2Seth Magaly Other [facility] [employer] Other 10-11-2022 11:45-0400Body thmpeqglddi66.7 [degF]Hardeep Magaly Other [place] [employer] Other 10-11-2022 11:45-0400Body rfnfoq91.28 kgSeth Magaly Other [place] [employer] Other 10-11-2022 11:45-0400Diastolic blood xuetqsaw36 mm[Hg] Hardeep Magaly Other [place] [employer] Other 10-11-2022 11:45-0400Respiratory rate20 /minSeth Magaly Other [place] [employer] Other 10-11-2022 11:45-8421OkF9% (BldA) [Mass fraction]99 % Hardeep Magaly Other [place] [employer] Other 10-11-2022 11:45-0400Systolic blood ofwlvbff153 mm[Hg] Hardeep Magaly Other [place] [employer] Other 10-07-2022 17:00-0400Hourly RoundingManguzman Nathaniel [facility] HospitalComment on above:Result Comment: Pt d/[id number] 16:30-0400Hourly RoundingManinder Nathaniel [facility]10-07-2022 16:30-0400 Promise to ReturnManinder Nathaniel [facility]10-07-2022 15:25-0400 Hourly RoundingManinder Nathaniel [address] [place], [place] 1687710-07-2022 15:25-0400 Promise to ReturnManinder Nathaniel [address] [place], [place] 1687710-07-2022 14:15-0400 Promise to ReturnManinder Nathaniel [address] [place], [place] 1684710-07-2022 12:00-0400Body twagwndhadq54.52 [degF]Gordy Nathaniel [address] [place], [place] 1684710-07-2022 12:00-0400 Diastolic blood izhnlgym30 mm[Hg]Gordy Nathaniel [address] [place], [place] 1684710-07-2022 12:00-0400Heart rate55 /minManinder Nathaniel [address] [place], [place] 1684710-07-2022 12:00-0400 Respiratory rate16 /minManinder Nathaniel [address] [place], [place] 1684710-07-2022 12:00-8023HzM6% (BldA) [Mass fraction]97 %Gordy Nathaniel [address] [place], [place] 1687710-07-2022 12:00-0400 Systolic blood ruxqoeio819 mm[Hg]Gordy Nathaniel [address] [place], [place] 1684710-07-2022 08:22-0400 Diastolic blood tqfokkur66 mm[Hg]Gordy Nathaniel [address] [place], [place] [id number] 08:22-0400Heart rate64 /minManinder Nathaniel [address] [place], [place] [id number] 08:22-0400 Systolic blood fgmidkps673 mm[Hg]Gordy Nathaniel [address] [place], [place] [id number] 08:00-0400Body qzhuzlweocr74.88 [degF]Gordy Nathaniel [address] [place], [place] [id number] 08:00-0400Heart rate45 /minManinder Nathaniel [address] [place], [place] [id number] 08:00-6344EmS0% (BldA) [Mass fraction]80 %Gordy Nathaniel [address] [place], [place] [id number] 05:00-0400Body alaqjkmntdq28.24 [degF]Gordy Nathaniel [address] [place], [place] [id number] 05:00-0400Heart rate63 /minManinder Nathaniel [address] [place] [id number] 05:00-0400Mean blood upywuhwe85 mm[Hg]Gordy Nathaniel [address] [place], [place] [id number] 05:00-5716BtE1% (BldA) [Mass fraction]95 %Gordy Nathaniel [address] [place], [place] [id number] 23:11-0400Blood Pressure LocationManguzman Nathaniel [address] [place], [place] [id number] 23:11-0400Mean blood zrrjsuoo21 mm[Hg]Gordy Nathaniel [address]10-06-2022 23:11-0400 Respiratory rate14 /minManinder Nathaniel [address] [place], [place] [id number] 20:24-0400Mean blood chyvwpps67 mm[Hg]Gordy Nathaniel [address] [place], [place] [id number] 16:38-0400Blood Pressure LocationManinder Nathaniel [address] [place], [place] [id number] 16:38-0400Heart rate57 /minManinder Nathaniel [address] [place] [id number] 16:38-0400 Respiratory rate16 /minManinder Nathaniel [address] [place] [id number] 15:00-0400Mean blood pppugffp243 mm[Hg]Gordy Nathaniel [address] [place] [id number] 14:30-0400 Respiratory rate19 /minGordy Nathaniel [address] [place], [place] [id number] 11:10-0400Heart rate61 /minManguzman Nathaniel [address]10-04-2022 12:02-0400 Hourly RoundingPatrick BROOKS [address] [place], [place] [id number] 12:02-0400 Promise to ReturnPatrick BROOKS [address] [place], [place] [id number] 11:02-0400 Hourly RoundingPatrick BROOKS [address] [place], [place] [id number] 11:02-0400 Promise to ReturnPatrick BROOKS [address] [place], [place] [id number] 10:13-0400 Hourly RoundingPatrick BROOKS [address] [place], [place] [id number] 10:13-0400 Promise to ReturnPatrick BROOKS [address] [place], [place] [id number] 08:45-0400 Diastolic blood nzhythan02 mm[Hg]Chandan BROOKS [address] [place], [place] 3316610-04-2022 08:45-0400Heart rate68 /minPatrick BROOKS [address] [place], [place] 3316610-04-2022 08:45-0400 Systolic blood noqlirfc064 mm[Hg]Chandan BROOKS [address] [place], [place] 3316610-04-2022 07:47-0400Blood Pressure LocationPabill SMITH [address] [place], [place] 3316610-04-2022 07:47-0400 BP/Pulse Patient PositionPabill SMITH [address]10-04-2022 07:47-0400 Diastolic blood iuvjqine88 mm[Hg]Chandan SMITH [address] [place], [place] 3316610-04-2022 07:47-0400Heart rate59 /minPabill SMITH [address] [place], [place] 3316610-04-2022 07:47-0400Mean blood gfjlbbgo338 mm[Hg]Chandan SMITH [address] [place], [place] 3316610-04-2022 07:47-0400 Respiratory rate16 /minChandan SMITH [address] [place], [place] 3316610-04-2022 07:47-7341QlS5% (BldA) [Mass fraction]97 %Chandan SMITH [address] [place], [place] 3316610-04-2022 07:47-0400 Systolic blood aaavthwl444 mm[Hg]Chandan SMITH [address] [place], [place] 3316610-04-2022 00:45-0400Blood Pressure LocationPabill SMITH [address] [place], [place] 4354810-04-2022 00:45-0400Body zyrpctmsvgm47.34 [degF]Chandan SMITH [address] [place], [place] 4354810-04-2022 00:45-0400 Diastolic blood fqwvvaof03 mm[Hg]Chandan IQBALLIN [address] [place], [place] 3316610-04-2022 00:45-0400Heart rate62 /minPabill SMITH [address]10-04-2022 00:45-0400Mean blood hjyxcwiz477 mm[Hg]Chandan SMITH [address] [place], [place] 3316610-04-2022 00:45-0400 Respiratory rate16 /minPatrick BROOKS [address] [place], [place] 3316610-04-2022 00:45-5362XkG9% (BldA) [Mass fraction]95 %Chandan SMITH [address] [place], [place] 3316610-04-2022 00:45-0400 Systolic blood qheririd267 mm[Hg]Chandan SMITH [address] [place], [place] 3316610-03-2022 09:22-0400Heart rate68 /minPatrick BROOKS [address] [place], [place] 3316610-03-2022 08:16-0400Body udrexpxkztw98.06 [degF]Chandan SMITH [address] [place], [place] 3316610-03-2022 08:16-0400Heart rate76 /minPatrick BROOKS [address] [place], [place] 3316610-03-2022 08:16-0400Mean blood bxbguguk405 mm[Hg]Chandan SMITH [address] [place], [place] 3316610-03-2022 08:16-3223CrG4% (BldA) [Mass fraction]95 %Chandan SMITH [address] [place], [place] 3316610-03-2022 04:27-0400Body tlbmcsisvmw45.88 [degF]Chandan SMITH [address] [place], [place] 3316610-03-2022 04:27-0400Heart rate65 /minPatrick BROOKS [address] [place], [place] 3316610-03-2022 04:27-0400Mean blood mm[Hg]Chandan IQBALLIN [address] [place], [place] 4354810-03-2022 01:50-0400Blood Pressure LocationPatrick BROOKS [address] [place], [place] 3316610-03-2022 01:50-0400Heart rate63 /minPatrick BROOKS [address] [place], [place] 4354810-03-2022 01:50-0400 Respiratory rate16 /minPatrick BROOKS [address] [place], [place] 4354810-03-2022 01:02-0400Heart rate63 /minPatrick BROOKS [address] [place], [place] 3316610-02-2022 23:59-0400 BP/Pulse Patient PositionPatrick BROOKS [address] [place], [place] 3316610-02-2022 23:19-0400Mean blood edxtldwf00 mm[Hg]Chandan SMITH [address] [place], [place] 3316610-02-2022 23:19-0400 Respiratory rate22 /minPatrick BROOKS [address] [place], [place] 3316610-02-2022 21:41-0400Mean blood xvolughl384 mm[Hg]Chandan SMITH [address] [place], [place] 3316610-02-2022 21:41-0400 Respiratory rate15 /minPatrick BROOKS [address] [place], [place] 4354810-02-2022 20:38-0400 Respiratory rate15 /minPatrick BROOKS [address] [place], [place] 3316609-23-2022 12:00-0400 Hourly RoundingRonobir BRAD [address] [place], [place] 4354809-23-2022 12:00-0400 Promise to ReturnRonobir BRAD [address] [place], [place] 4354809-23-2022 11:00-0400Blood Pressure LocationRonobir BRAD [address] [place], [place] 3316609-23-2022 11:00-0400Body vifzhrzdsjo06.34 [degF]Ronobir BRAD [address] [place], [place] 4354809-23-2022 11:00-0400 BP/Pulse Patient PositionRonobir RBAD [address] [place], [place] 3316609-23-2022 11:00-0400 Diastolic blood xoeibqrf44 mm[Hg]Ronobir BRAD [address] [place], [place] 3316609-23-2022 11:00-0400Heart rate58 /minRonobir BRAD [address] [place], [place] 4354809-23-2022 11:00-0400 Hourly RoundingRonobir BRAD [address] [place], [place] 4354809-23-2022 11:00-0400 Promise to ReturnRonobir BRAD [address] [place], [place] 4354809-23-2022 11:00-0400 Respiratory rate16 /minRonobir BRAD [address] [place] 4354809-23-2022 11:00-0400 Systolic blood yfitiaob29 mm[Hg]Ronobir BRAD [address]09-23-2022 10:00-0400 Hourly RoundingRonobir BRAD [address] [place], [place] 4354809-23-2022 10:00-0400 Promise to ReturnRonobir BRAD [address] [place], [place] 3316609-23-2022 08:35-0400 Diastolic blood mm[Hg]Ronobir BRAD [address] [place], [place] 3316609-23-2022 08:35-0400Heart rate64 /minRonobir BRAD [address] [place], [place] 3316609-23-2022 08:35-0400 Systolic blood avoundxl443 mm[Hg]Ronobir BRAD [address] [place], [place] 3316609-23-2022 08:25-8082QcA6% (BldA) [Mass fraction]96 %Ronobir BRAD [address] [place], [place] 3316609-23-2022 03:28-0400Heart rate59 /minRonobir BRAD [address] [place], [place] 3316609-23-2022 03:28-0400Mean blood ywwiqhqj50 mm[Hg]Ronobir BRAD [address] [place], [place] 3316609-23-2022 03:28-2680XsY0% (BldA) [Mass fraction]95 %Ronobir BRAD [address] [place], [place] 3316609-23-2022 03:00-0400 Respiratory rate17 /minRonobir BRAD [address] [place], [place] 3316609-22-2022 23:25-0400Body zqlaqndlmdv88.34 [degF]Ronobir BRAD [address] [place], [place] 3316609-22-2022 23:25-0400Mean blood augclrei691 mm[Hg]Ronobir BRAD [address] [place], [place] 4354809-22-2022 20:13-0400Mean blood eorkertk89 mm[Hg]Ronobir BRAD [address] [place], [place] 4354809-22-2022 17:22-0400Heart rate53 /minRonobir BRAD [address] [place], [place] 3316609-22-2022 10:00-0400Heart rate58 /minRonobir BRAD [address] [place], [place] 3316609-22-2022 04:00-0400Mean blood mm[Hg]Ronobir BRAD [address] [place], [place] 3316609-22-2022 00:38-0400Heart rate63 /minRonobir BRAD [address] [place], [place] 3316609-22-2022 00:23-0400Mean blood btuznbfd971 mm[Hg]Ronobir BRAD [address] [place], [place] 3316609-21-2022 23:06-0400Heart rate70 /minRonobir BRAD [address] [place], [place] 3316609-21-2022 22:30-0400Mean blood sxucwgte85 mm[Hg]Ronobir BRAD [address] [place], [place] 3316609-21-2022 22:30-0400 Respiratory rate15 /minRonobir BRAD [address] [place], [place] 4354809-21-2022 22:00-0400 Respiratory rate14 /minRonobir BRAD [address] [place], [place] 3316609-21-2022 21:50-0400 Respiratory rate16 /minRonobir BRAD [address] [place], [place] 3316609-21-2022 20:12-0400Heart rate61 /minRonobir BRAD [address] [place] 4354809-17-2022 14:00-0400 Hourly RoundingHasan AMIR [address] [place], [place] 4354809-17-2022 14:00-0400 Promise to ReturnHasan AMIR [address] [place], [place] 3316609-17-2022 13:00-0400 Hourly RoundingHasan AMIR [address] [place], [place] 3316609-17-2022 13:00-0400 Promise to ReturnHasan AMIR [address] [place], [place] 3316609-17-2022 12:00-0400 Hourly RoundingHasan AMIR [address] [place], [place] 3316609-17-2022 12:00-0400 Promise to ReturnHasan AMIR [address] [place], [place] 3316609-17-2022 11:15-0400Blood Pressure LocationHasan AMIR [address] [place], [place] 3316609-17-2022 11:15-0400Body xizgaoomixv03.16 [degF]Hasan AMIR [address] [place], [place] 3316609-17-2022 11:15-0400 BP/Pulse Patient PositionHasan AMIR [address] [place], [place] 3316609-17-2022 11:15-0400 Diastolic blood cllofyyf08 mm[Hg]Hasan AMIR [address] [place], [place] 3316609-17-2022 11:15-0400Heart rate60 /minHasan AMIR [address] [place], [place] 3316609-17-2022 11:15-0400Mean blood whapfxnu40 mm[Hg]Hasan AMIR [address] [place], [place] 3316609-17-2022 11:15-1110BrW9% (BldA) [Mass fraction]97 %Hasan AMIR [address]09-17-2022 11:15-0400 Systolic blood kpmqovlc278 mm[Hg]Hasan AMIR [address] [place], [place] 3316609-17-2022 07:51-1053QqJ2% (BldA) [Mass fraction]96 %Hasan AMIR [address]09-17-2022 07:48-0400Blood Pressure LocationHasan AMIR [address]09-17-2022 07:48-0400Body eogysolqkju31.52 [degF]Hasan AMIR [address] [place], [place] 3316609-17-2022 07:48-0400 BP/Pulse Patient PositionHasan AMIR [address] [place], [place] 3316609-17-2022 07:48-0400 Diastolic blood knmvipwq39 mm[Hg]Hasan AMIR [address] [place], [place] 3316609-17-2022 07:48-0400Heart rate59 /minHasan AMIR [address] [place], [place] 3316609-17-2022 07:48-0400Mean blood mm[Hg]Hasan AMIR [address] [place], [place] 3316609-17-2022 07:48-3255BxC1% (BldA) [Mass fraction]96 %Hasan AMIR [address] [place], [place] 3316609-17-2022 07:48-0400 Systolic blood fonmxxcj256 mm[Hg]Hasan AMIR [address] [place], [place] 3316609-17-2022 02:38-0400 Diastolic blood mm[Hg]Hasan AMIR [address]09-17-2022 02:38-0400Heart rate57 /minHasan AMIR [address]09-17-2022 02:38-0400Mean blood szyesiyn16 mm[Hg]Hasan AMIR [address] [place], [place] 3316609-17-2022 02:38-0400 Systolic blood bqhypgfd535 mm[Hg]Hasan AMIR [address] [place], [place] 3316609-17-2022 02:18-0400 BP/Pulse Patient PositionHasan AMIR [address] [place], [place] 3316609-17-2022 02:18-0400Mean blood zvxgsaog311 mm[Hg]Hasan AMIR [address] [place], [place] 3316609-17-2022 00:17-0400Body gtzgejcrnyf45.88 [degF]Hasan AMIR [address] [place], [place] 3316609-16-2022 21:24-0400Heart rate65 /minHasan AMIR [address] [place], [place] 3316609-16-2022 08:14-0400Heart rate68 /minHasan AMIR [address] [place], [place] 3316609-16-2022 07:00-0400Blood Pressure LocationHasan AMIR [address] [place], [place] 3316609-16-2022 00:00-0400Mean blood mm[Hg]Hasan AMIR [address] [place], [place] 3316609-16-2022 00:00-0400 Respiratory rate16 /minHasan AMIR [address] [place], [place] 3316609-15-2022 21:19-0400Heart rate58 /minHasan AMIR [address] [place], [place] 4354809-15-2022 16:00-0400 Respiratory rate14 /minHasan AMIR [address] [place], [place] 3316609-15-2022 09:30-078095 1 Anjana zAar MD Work Phone: [phone]-Jpguj [facility] 600 DO Work Phone: Comment on above:[id number] 04:00-0400Heart rate60 /minHasan AMIR [facility]09-15-2022 04:00-0400Mean blood rcyjczul80 mm[Hg]Hasan AMIR [address] [place], [place] 4354809-15-2022 04:00-0400 Respiratory rate19 /minHasan AMIR [address] [place], [place] 4354809-15-2022 00:15-0400Heart rate63 /minHasan AMIR [address] [place], [place] 4354809-15-2022 00:15-0400 Respiratory rate18 /minHasan AMIR [address]09-14-2022 14:20-0400Heart rate70 /minHasan AMIR [address]09-14-2022 14:13-0400 Respiratory rate17 /minHasan AMIR [address] [place], [place] 4354808-29-2022 12:30-0400Body qbcxyp967.1 cmRoyce Douglas Other [facility] [employer] Other 08-29-2022 12:30-0400Body mass index (BMI) [Ratio] 32.45 kg/s7YwtzgemRoyce Douglas Other [employer] [facility] [employer] Other 08-29-2022 12:30-0400Body .7 [degF] Royce Douglas Other [place] [employer] Other 08-29-2022 12:30-0400Body fnutyg01.45 kgRoyce Douglas Other [place] [employer] Other 08-29-2022 12:30-0400Diastolic blood bdiemuif30 mm[Hg] Royce Douglas Other [employer] Other 08-29-2022 12:30-5757GjO9% (BldA) [Mass fraction]97 % Royce Douglas Other [employer] Other 08-29-2022 12:30-0400Systolic blood fosgbvak378 mm[Hg] Royce Douglas Other [employer] Other 05-02-2022 12:15-0400Body nwgugx794.1 cmSeth Magaly Other [employer] Other 05-02-2022 12:15-0400Body mass index (BMI) [Ratio] 32.45 kg/m2Seth Magaly Other [employer] Other 05-02-2022 12:15-0400Body execuwqosim65.5 [degF]Ahrdeep Magaly Other [employer] Other 05-02-2022 12:15-0400Body nniunl07.45 kgSeth Magaly Other [employer] Other 05-02-2022 12:15-0400Diastolic blood qvunopcs83 mm[Hg] Hardeep Magaly Other [employer] Other 05-02-2022 12:15-0400Respiratory rate20 /minSeth Magaly Other [employer] Other 05-02-2022 12:15-5977WbV6% (BldA) [Mass fraction]96 % Hardeep Magaly Other [employer] Other 05-02-2022 12:15-0400Systolic blood iiwnfgsw516 mm[Hg] Hardeep Magaly Other [employer] Other 04-13-2022 14:00-0400Body lopaoh528.1 cmSeth Magaly Other [employer] Other 04-13-2022 14:00-0400Body mass index (BMI) [Ratio] 32.78 kg/m2Seth Magaly Other [employer] Other 04-13-2022 14:00-0400Body ihlvgzdcolz85.9 [degF]Hardeep Magaly Other [employer] Other 04-13-2022 14:00-0400Body mehntz27.36 kgSeth Magaly Other [employer] Other 04-13-2022 14:00-0400Diastolic blood mm[Hg] Hardeep Magaly Other [employer] Other 04-13-2022 14:00-0400Respiratory rate20 /minSeth Magaly Other [employer] Other 04-13-2022 14:00-8328NhI7% (BldA) [Mass fraction]97 % Hardeep Magaly Other [employer] Other 04-13-2022 14:00-0400Systolic blood qlccfyur655 mm[Hg] [facility]ep [facility]aly Other [facility] [employer] Other 02-28-2022 12:30-0500Body cwmoqy472.1 cmTonia Mcdonough Other [employer] Other 02-28-2022 12:30-0500Body mass index (BMI) [Ratio] 31.61 kg/a4IhffxmTonia Mcdonough Other [employer] Other 02-28-2022 12:30-0500Body fkevnijcsjl55.7 [degF]Tonia [facility]cdonough Other [facility] Other 02-28-2022 12:30-0500Body kfltay66.18 kgTonia Mcdonough Other [facility] Other 02-28-2022 12:30-0500Diastolic blood obxulwkh83 mm[Hg] Tonia Mcdonough Other [employer] Other 02-28-2022 12:30-2313LoO5% (BldA) [Mass fraction]98 % Tonia Mcdonough Other [employer] Other 02-28-2022 12:30-0500Systolic blood iwmlxgzs963 mm[Hg] Tonia Mcdonough Other [employer] Other 10-25-2021 11:00-0400Body pynyae456.1 cmRoyce Douglas Other [employer] Other 10-25-2021 11:00-0400Body mass index (BMI) [Ratio] 31.61 kg/o6Ewcsitr Buehrer Other [employer] Other 10-25-2021 11:00-0400Body ohgzokjpwqc02.8 [degF] Royce Buehrer Other [employer] Other 10-25-2021 11:00-0400Body hsjopd04.18 kgJeffrey Buehrer Other [employer] Other 10-25-2021 11:00-0400Diastolic blood wcyyhpdg90 mm[Hg] Royce Buehrer Other [employer] Other 10-25-2021 11:00-0400Systolic blood tpszmsvi082 mm[Hg] Royce Buehrer Other [employer] Other 10-04-2021 12:00-0400Body wroivm451.1 cmJekinjalrey Buehrer Other [employer] Other 10-04-2021 12:00-0400Body mass index (BMI) [Ratio] 31.61 kg/i9Faarmcj Buehrer Other [employer] Other 10-04-2021 12:00-0400Body zjfcyukxeie57.7 [degF] Royce Buehrer Other [employer] Other 10-04-2021 12:00-0400Body ylxhnk86.18 kgJeffrey Buehrer Other [employer] Other 10-04-2021 12:00-0400Diastolic blood pwytczwa98 mm[Hg] Royce Buehrekatherine Other [employer] Other 10-04-2021 12:00-2073EiH7% (BldA) [Mass fraction]97 % Royce Douglas Other [employer] Other 10-04-2021 12:00-0400Systolic blood rqyqdrbo369 mm[Hg] Royce Douglas Other [employer] Other 11-04-2019 12:26-0500BMI (Body Mass Index)30.5 kg/m2 [facility]11-04-2019 12:26-0500Body ljoahe08.45 [facility]11-04-2019 12:26-8815Kmizzq526.18 cm [facility]11-04-2019 11:41-0500Body Temperature 97.6 [degF][facility]11-04-2019 11:41-0500BP Dqbrdbhne28 mm[Hg][facility]11-04-2019 11:41-0500BP Kffmlrqy254 mm[Hg][facility] 01-13-2019 11:41-0500Pulse (Heart Rate)68 /minSWright[facility]11-04-2019 11:41-0500Respiratory Rate16 /[facility]10-09-2019 08:21-0400Body Lbshzxbecdx92.9 [degF][facility], [id number] 08:21-0400BP Zbpexleng41 mm[Hg][facility], [id number] 08:21-0400BP Lyiexrrl498 mm[Hg][facility], [id number] 08:21-0400Pulse (Heart Rate)66 /minSNorth Carolina Special[facility] Hospital[facility]- [place], [id number] 08:21-0400Pulse Idrkjgmt14 %[facility], [id number] 08:21-0400Respiratory Rate15 /[facility], [id number] 06:00-0400BMI (Body Mass Index)31.76 kg/t8KajsdsfChillicothe [facility] Medical [facility], XF42-90-5610 06:00-0400Body .27 kgChillicothe [facility], PO29-02-2069 23:15-0609Sbdrev303.6 cmSDayton Osteopathic [facility], [place] Encounters Encounter DateEncounter TypeCare ProviderFacilityStart: 46-31-6319kirgqfieuj Niaall MccrayFacility:[facility]: 01-17-2030ovzepylksjYjpwoo J Galea [facility]: 01-13-2025 End: 92-63-7589Jxkwngn encounter procedureNia Mccray [facility] Start: 01-12-2025 End: 01-22-2470Gmbcdkfeu encounterMalshy Baker MD Work Phone: [facility] Emergency MedicineStart: 01-11-2025 Emergency department patient visitUNKNOWN PROVIDERFacility:METROHealthStart: 96-25-7690Sckqgnppi department patient visitUNKNOWN PROVIDERFacility:[facility] Start: 01-10-2025 End: 66-67-0185Mtfxygfzi department patient visitAlexis Monson MD Work Phone: [facility] Emergency MedicineComment on above:Back symptoms/complaints (Transfer [facility]. Exacerbation of t12 spine fracture and urinary incontinence )Start: 01-10-2025 End: 59-36-2621Jegctakcs encounterJanny Martinez MD Work Phone: [facility] NeurosurgeryStart: 01-10-2025 End: 94-15-0208Fbkvttavy department patient visitStamara HuffmannFacility:[facility] Start: 12-12-2024 End: 02-92-8530fjiufrvgzaFHDU M RUGGLESFacility:[facility] ARIZONAtart: 11-21-2024 End: 07-71-7444Ebslky flowsheetChrisklarissa Jhaveri DPM Work Phone: [facility]iatryStart: 11-21-2024 End: 07-70-7371Mznmeo flowsheetChristopher Aggarwal Bohconor DPM Work Phone: noms [facility] PodiatryStart: 11-21-2024 End: 84-33-8702junlxhwrivUKMZWDLOFUZ J BOHACHNot AvailableStart: 11-21-2024 End: 47-12-4136Vviwuph encounter procedureChristopher Alessia Jhaveri DPM Work Phone: NOZV [facility] PodiatryComment on above:Idiopathic progressive polyneuropathy (Primary Dx); Onychomycosis; Corns and callositiesStart: 10-27-2024 End: 25-37-2174hmnhjvagboJfdmlw J GaleaFacility:EU [facility] CenterCalebtart: 10-27-2024 End: 72-44-9395Aryqprd encounter procedureNia Mccray [facility] Start: 09-08-2024 End: 62-23-9228hdbzcflyffTydiukg Vytautas Giedraitis MDFacility:[facility] [place] Start: 09-02-2024 End: 88-75-1586gygnlaliqfNvjhnqli Talal SarminiFacility:[facility] DHStart: 09-02-2024 End: 54-82-1226Lbhedzr encounter procedureMuhammad Talal Sarmini [phone]-GtooaThe [facility] Start: 82-56-2042zxppanbgkuRUEE RUGGLESFacility:EU [place]Start: 08-21-2024 End: 78-48-2988Wtahyu flowsheetChristopher Alessia Jhaveri DPM Work Phone: noms [facility] PODIATRYStart: 08-21-2024 End: 69-84-4673Haopva flowsheetChristopher Alessia Jhaveri DPM Work Phone: noms WWW PODIATRYStart: 08-21-2024 End: 47-82-6285sagrizmpgxSGADURPPHZF J BOHACHNot AvailableStart: 08-21-2024 End: 24-78-8075Qlsxexv encounter procedureChristopher Alessia Jhaveri DPM Work Phone: noms WWW PODIATRYComment on above:Idiopathic progressive polyneuropathy (Primary Dx); Onychomycosis; Corns and callositiesStart: 03-10-5641nmghqqrbhsGBRM RUGGLESFacility:Millie Romero DHStart: 08-05-2024 End: 42-12-2475xetrdcbdyfUttmxqbthSCCI Hospital [facility] Work Phone: Start: 08-05-2024 End: 16-54-2350Apibhuh encounter procedureCarolinas [facility] Phys[facility] GroupEstelle [facility] Work Phone: Start: 07-29-2024 End: 74-76-5537Qarynh outpatient new 60 minutesRonald Franco MD Work Phone: [facility] NeurologyComment on above: Traumatic brain injury, with unknown loss of consciousness status, sequela (HCC) (Primary Dx); Decreased hearing, unspecified lateralityStart: 07-29-2024 End: 21-47-2672ncdsqykqpeSDE WACHSMANFacility:METROHealthStart: 07-28-2024 End: 47-09-5839wokfavfbbsGkdiehlAry Man MDFacility:[facility] [place] Start: 07-22-2024 End: 20-01-8661fnhkkkkidtUfqpxicpjPaulding County Hospital Work Phone: Start: 07-22-2024 End: 73-61-5412Zlcjaoh encounter procedureCarolinas [facility] Physician GroupKind[facility] Work Phone: Start: 2024 End: 40-74-7984zujaysanlwYzkrshvAnil Man MDFacility:[facility] [place] Start: 06-02-2024 End: 85-87-6211jpukeboqrrIbgmrwm Vytautas Giedraitis MDFacility:[facility] [place] Start: 93-38-1718Oqf-patient / Non-visitCarolinas [facility]care [facility] Physician GroupKlickitat [facility] Work Phone: Start: 05-26-2024 End: 09-65-8999ktiyymkcsrWJXR M RUGGLESFacility:FTMCStart: 05-26-2024 End: 77-62-3624Drqgrql encounter procedureSETH Brittany ZARCOES [facility] Start: 05-22-2024 End: 03-84-2727Wvqxln flowsheetChristopher Alessia Jhaveri DPM Work Phone: noms WWW PODIATRYStart: 05-22-2024 End: 09-24-8191Nkiesu flowsheetChristopher Alessia Jhaveri DPM Work Phone: noms WWW PODIATRYStart: 05-22-2024 End: 15-12-5333gchhcbfiwtXKTAXXVYUGS J BOHACHNot AvailableStart: 05-21-2024 End: 80-89-8557ovuhcegvxpZmud M. Magaly DO Work Phone: [facility] Work Phone: Start: 05-21-2024 End: 56-14-3151Lxpgmkw encounter procedureSeth Magaly DO Work Phone: [facility] Work Phone: Start: 04-27-2799Tvh-patient / Non-visitSeth Magaly DO Work Phone: [facility] Phys[facility] GroupEst[facility] Work Phone: Start: 83-00-0416Ltu-patient / Non-visitSeth Magaly DO Work Phone: [facility] GroupEst[facility] Work Phone: Start: 04-22-2024 End: 85-88-7395Uoktuxq encounter procedureSeth Magaly DO Work Phone: [facility] GroupKind[facility] Work Phone: Start: 04-22-2024 End: 40-76-7241zoaajhwwmbMxmb BrittanyChinmay Magaly DO Work Phone: [facility] Work Phone: Start: 04-21-2024 End: 65-36-3432Igvyyjjyr department patient visitK[facility] Start: 04-21-2024 End: 12-20-5434Xlqesp flowsheetChristopher Monroe DO Work Phone: ana NORWALKStart: 04-21-2024 End: 46-85-7730Kfvnww flowsheetChristopher Monroe DO Work Phone: ana JONGKStart: 04-21-2024 End: 26-09-1045vkitfdgvzpDPABPBTLSMH HASSETTNot AvailableStart: 04-21-2024 End: 44-10-2343Godrqn outpatient new 60 minutesChristopher Monroe DO Work Phone: aNA [facility]omselect [facility] on above:Intracranial hemorrhage (CMS/HCC) (Primary Dx); Essential hypertension (CMS/HCC); History of seizure disorderStart: 63-22-3440Wlb-patient / Non-visitSeth Magaly DO Work Phone: [facility] Work Phone: Start: 04-11-2024 End: 69-80-6110Gntylrqbz department patient visitJomiguel ángel Beard [facility] Start: 03-21-2024 End: 00-52-1752zjbtuogjizAbfu M. Magaly DO Work Phone: [facility] Work Phone: Start: 03-21-2024 End: 39-64-4525Zhnrbdc encounter procedureSeth Magaly DO Work Phone: [facility] [place] Phone: Start: 03-13-2024 End: 95-19-6014Nzkjhfe encounter procedureSeth Magaly DO Work Phone: [facility] Work Phone: Start: 03-13-2024 End: 90-70-2701exlqezvujmXllz M. Magaly DO Work Phone: [facility] Work Phone: Start: 82-16-0899Pgu-patient / Non-visitSeth Magaly DO Work Phone: [facility] [place] Work Phone: Start: 03-09-2024 End: 09-77-2110Atfmirtjo department patient visitJames Nguyen [facility] Start: 02-22-2024 End: 84-54-7837Vpxaqn Arturo Jhaveri DPM Work Phone: [facility] [employer] PODIATRYStart: 02-22-2024 End: 44-08-0133Gluvzy Arturo Jhaveri DPM Work Phone: NOQF [employer] PODIATRYStart: 02-22-2024 End: 17-06-4750aoftvfzfmbKRQDMQGWPTG J BOHACHNot AvailableStart: 02-18-2024 End: 61-75-5037Oqrkmhh encounter procedureSeth Magaly DO Work Phone: [facility] [place] Phone: Start: 02-15-2024 End: 76-59-6935gdumljtffuWIBU M RUGGLESFacility:FTMCStart: 02-15-2024 End: 30-20-7207Zbvcync encounter procedureSETH M MAGALY [place] [facility] Start: 01-28-2024 End: 06-45-3047xkovpmpbvdMyjojokAry Man MDFacility:[facility] Start: 01-22-2024 End: 90-05-3645mxqvbrieqqBmiz M. Magaly DO Work Phone: [facility] Work Phone: Start: 01-22-2024 End: 43-49-1867Smrqkjb encounter procedureSeth Magaly DO Work Phone: [facility] Cardiology Work Phone: Start: 01-21-2024 End: 23-54-7828pjcantlsknDrwb M. Magaly DO Work Phone: [facility] Work Phone: Start: 01-21-2024 End: 44-36-2499Abyhmrk encounter procedureSeth Magayl DO Work Phone: [facility] Work Phone: Start: 01-11-2024 End: 82-96-3930lkuwbzcmzhDFEZ M RUGGLESFacility:FTMCStart: 01-11-2024 End: 87-91-1265Jbf Drop offSETH M MAGALY [facility] Start: 59-72-4673Xsq-patient / Non-visitSeth Magaly DO Work Phone: [facility] Work Phone: Start: 12-31-2023 End: 50-26-6706uwdsmdlnlxLbkyyrbLeif Man MDFacility:[facility] [place] Start: 29-24-6524Fhs-patient / Non-visitSeth Magaly DO Work Phone: [facility] Family [facility] Work Phone: Start: 39-67-0922Flj-patient / Non-visitSeth Magaly DO Work Phone: [facility] Family [facility] Work Phone: Start: 62-68-6052Zyy-patient / Non-visitDO Hardeep Magaly Work Phone: [facility] Family [facility] Work Phone: Start: 12-05-2023 End: 73-19-4424Zcgyikpktm RecurringDO Hardeep Magaly Work Phone: [facility]-[address] [facility] Start: 12-05-2023 End: 71-21-6172ghkkxautoqZR Hardeep M. Magaly Work Phone: [facility] Work Phone: Start: 11-28-2023 End: 64-51-8125hjlafvkyvaGmppwpgtkPaulding County Hospital Work Phone: Start: 11-28-2023 End: 24-86-0039Ukpmhek encounter procedureCar[facility]as [facility] Family [facility] [place] Work Phone: Start: 11-09-2023 End: 45-94-0174Evzmuodtg encounterNoé Owen RNMetroHealth NeurosurgeryStart: 11-07-2023 End: 94-32-7716vmlezxfizgYakwlskctSCCI Hospital [facility] Work Phone: Start: 11-07-2023 End: 79-41-6610Wrhexgv encounter procedureCar[facility]as [facility] Phys[facility] GroupEst[facility] Work Phone: Start: 11-07-2023 End: 47-16-7876Vhij/qhp telephone evaluation 5-10 minMickaty Li MD Work Phone: [facility] NeurosurgeryComment on above:Subdural hematoma (HCC) (Primary Dx)Start: 11-02-2023 End: 44-31-3885xfzkzefdqfWwmdqii K ClingmanFacility:FT Extended CareStart: 11-02-2023 End: 93-31-4721Exk-SiteMichael K ClingmanExtended Care Start: 10-19-2023 End: 56-83-8049aawqvvmhaoZnjtart HARFRYBURGFacility:FT Extended CareStart: 10-19-2023 End: 20-43-2937Jhf-SiteRoyce TELLEZ [facility] Start: 10-18-2023 End: 75-03-6617cplizswzzmEtlhhhn HARWOODFacility:FTMCStart: 10-18-2023 End: 41-36-6020Ippfltajqh and management of inpatientRoyce TELLEZ [facility] Start: 10-16-2023 End: 21-33-3434Citiebhsyy and management of inpatientPatrick A BROOKS Facility:FTMCStart: 01-79-8368Cmmmpjmkf department patient visitK[facility] Facility:FTMCStart: 10-16-2023 End: 07-39-0549Rppmccquku and management of inpatientPatrick A BROOKS [facility] Start: 10-08-2023 End: 71-02-9583Gygebccdm department patient visitMamalinda Flores DO Work Phone: [facility] Emergency MedicineStart: 10-08-2023 End: 10-08-2023E.DChinmay VisitPrudence Jennifer [facility] Social WorkComment on above:Trauma/complex Medical SituationStart: 10-08-2023 End: 65-53-2296Odjtblhtg department patient visitJomiguel ángel Skaggse [facility] Start: 10-03-2023 End: 58-42-5070Hvgbytjauq and management of inpatientDO Ronobir R BRAD Facility:FTMCStart: 10-03-2023 End: 93-71-8851Ipwtsxugkk and management of inpatientRonobir R BRAD [facility] Start: 10-02-2023 End: 50-17-6267Bjlidabpr encounterTo Be [facility] Physician Referral ServiceComment on above:requesting call backStart: 88-32-9987Tyz-patient / Non-visitFirelands [facility] Work Phone: Start: 40-71-6259Zvl-patient / Non-visitFirelands [facility] Medicine [place] Work Phone: Start: 10-01-2023 End: 04-68-2243vklmrdqkctJrftwrjqxSCCI Hospital [facility] Work Phone: Start: 10-01-2023 End: 81-19-7660Yztcnps encounter procedureFirlovells Physician [facility] Work Phone: Start: 09-25-2023 End: 78-84-4783ytjqqxgozwAFLCAnahy MCKENZIEFacility:[facility] Start: 09-25-2023 End: 23-38-7907Ojnqvvi encounter procedureSjoy Draper OD Work Phone: OphthalmologyComment on above:S/P YAG capsulotomy, right (Primary Dx); Pseudophakia, right eye; Retinal hemorrhage of left eye; Insufficiency of tear film of both eyes; 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Start: 09-18-2023 End: 01-33-5509oibcyrhwvmHNHYAnahy MCKENZIEFacility:[facility] Start: 09-18-2023 End: 28-75-5325Gafauti encounter procedureVick Domínguez MD Work Phone: OphthalmologyComment on above:PCO (posterior capsular opacification), right (Primary Dx); Meibomian gland dysfunction (MGD) of upper and lower lids of both eyes; Insufficiency of tear film of both eyes; Pseudophakia, right eye; Retinal hemorrhage of left eye; Combined form of age-related cataract, left eyeStart: 20-49-0789ycgmyqiwfdHaeyo Shuttic LPNNURSE ON CALLComment on above:Preparations For ProceduresStart: 90-60-5213Grhwyjlny encounterRoss Moody MD Work Phone: OphthalmologyStart: 55-08-2982Xxj-patient / Non-visit [facility] Work Phone: Start: 22-82-0687Fdn-patient / Non-visit[facility] Work Phone: Start: 09-06-2023 End: 23-17-4073Jprfkqo evaluation of patient and reportNeurosurgery Rn [facility] NeurosurgeryComment on above:Subdural hematoma (HCC) (Primary Dx) Start: 09-05-2023 End: 49-28-1533Osedmtispa hospital visit by physicianMh Ip/Op Ct Scan Main 2(Edge)[facility] Radiology CTComment on above:SDH (subdural hematoma) (HCC) Start: 09-03-2023 End: 78-38-0315orczlykrugGkioetukhSCCI Hospital [facility] Work Phone: Start: 09-03-2023 End: 63-67-9122Vcpuajq encounter procedureCar[facility] Cardiology Work Phone: Start: 08-30-2023 End: 34-88-1233Svnkhu outpatient [facility] Mitzi SOUZA Work Phone: [facility] UrologyComment on above: Postoperative urinary retention (Primary Dx); Kunz catheter in place; Urinary retentionStart: 08-22-2023 End: 47-57-1382Snttdkgrqt and management of inpatientJustin Vahe VICTOR Work Phone: [facility] RadiologyComment on above:ArrivedStart: 13-58-2290Zyghxpyuu encounterDeidre Peter Research CoordinatorNeuro Stroke Comment on above:Outcomes (90 day mRS)Start: 08-17-2023 End: 80-99-1082Hmqjcozwje and management of inpatientJustin Vahe VICTOR Work Phone: [facility] RadiologyComment on above:ArrivedStart: 08-16-2023 End: 45-73-3277Ptfjykvuhi and management of inpatientPastorastin Vahe VICTOR Work Phone: [facility] HospitalSpendCrowdOhiohealth [facility] RadiologyStart: 08-15-2023 End: 30-51-9313Ekrvezuiak and management of inpatientJustin Vahe VICTOR Work Phone: [facility] Inpatient NeurophysiologyComment on above: ArrivedStart: 08-14-2023 End: 99-35-0579Mohvwfizqz and management of inpatientJustin Vahe VICTOR Work Phone: [facility] Radiology CTComment on above:ArrivedStart: 08-13-2023 End: 54-02-9519lrasboiumhGkvi McNattMetroHealth Care Management/Patient Access Start: 08-13-2023 End: 05-80-2764Yqvsaxblfkii of care planTina McNattMetroHealth Care Management/Patient AccessComment on above:SNF/Hospice; Care Coordination; Transition Of Care; Medical Record ReviewStart: 08-12-2023 End: 47-14-6965Qgnqywljqz and management of inpatientMattbeau Castorena MD Work Phone: [employer] EastComment on above:SDH (subdural hematoma) (HCC) (Primary Dx); Altered mental status, unspecified altered mental status type; Acute pain due to trauma; Encephalopathy; Urinary retention; PolypharmacyStart: 08-12-2023 End: 91-18-5358Zxwfvbfyn department patient visitTim ThomasFacility:FTMCStart: 08-12-2023 End: 08-12-2023Manjula BARRIENTOS Work Phone: [employer] WorkComment on above:Trauma 2Start: 08-09-2023 End: 60-68-4659twgppfxlcoMbvmlbz Williams RNMetroOhiohealth [facility] Care Management/Patient AccessStart: 08-09-2023 End: 95-76-4777Dgjshcgevdut of care planCorry Park RNMetroOhiohealth [facility] Care Management/Patient AccessComment on above:Transitional Care Management; Care CoordinationSNF/Hospice; Care Coordination; Transition Of Care; Medical Record ReviewStart: 01-89-3659Wdg-patient / Non-visitFirelands Physician GroupKlickitat Valley Health Professional [facility] Work Phone: Start: 07-29-2023 End: 07-29-2023Manjula HARRELL Work Phone: [employer] WorkComment on above:Trauma/complex Medical SituationStart: 07-29-2023 End: 73-62-9480Dhuxiiquvg and management of inpatientJanny Ellison MD Work Phone: [facility] AComment on above:Subdural hematoma (HCC) (Primary Dx); Fall, initial encounter; Abnormal electrocardiogram (ECG) (EKG); Abnormal electrocardiogram (ECG) (EKG); Acute pain due to trauma; Midline shift of brainStart: 07-79-9257Ywxyxlmff department patient visitAshramakrishna SotoChinmay DwyerFacility:FTMCStart: 07-29-2023 End: 37-65-1423Repnahjad department patient visitStacia SotoChinmay Dwyer [facility] Start: 07-18-2023 End: 49-44-0825tkcrugormbRennmg Alex TAVONGFacility:FTMCStart: 07-18-2023 End: 99-97-8700Jscyidr encounter procedureAmantodd ROSAS [facility] Start: 72-46-2854Cqa-patient / Non-visitCar[facility] Physician GroupEstelle [facility] Work Phone: Start: 07-16-2023 End: 35-59-4145fhpoavcpvnXH Hardeep Mckenzie Work Phone: [facility] Work Phone: Start: 07-16-2023 End: 69-62-9936Fsbkslz encounter procedureDO Hardeep Mckenzie Work Phone: [facility] Phys[facility] GroupEstelle [facility] Work Phone: Start: 07-13-2023 End: 56-12-6124Fcqprjqfr department patient visitJohn ParenteFacility:FTMCStart: 07-13-2023 End: 21-27-5273Rcphgmkru department patient visitJomiguel ángel Skaggse [facility] Start: 07-09-2023 End: 92-08-6952Bgdiilvrpg and management of inpatientSwapna Celi Facility:FTMCStart: 07-08-2023 End: 99-21-9080Asyoxzmmqq and management of inpatientKristen HeathSouthview Medical Center Start: 07-06-2023 End: 73-93-6896kbzjqestfnEAVL MOORE RUGGLNIMAFacility:[facility] Start: 07-06-2023 End: 31-04-6955Turseit encounter Radha Dow APRN.CNP Work Phone: Cerebrovascular CenterComment on above:SAH (subarachnoid hemorrhage) (HCC) (Primary Dx); Cerebral amyloid angiopathy (CODE); Nontraumatic subarachnoid hemorrhage (HCC); Morbid obesity (HCC)Start: 06-29-2023 End: 01-88-8915emwuoonsdpNZSF MOORE RUGGLNIMAFacility:[facility] Start: 06-29-2023 End: 54-69-9802Tdsmazv encounter Magdy Casarez APRN.CNP Work Phone: Endovascular CenterComment on above:SAH (subarachnoid hemorrhage) (HCC) (Primary Dx); Anxiety attack; Physical deconditioningStart: 06-28-2023 End: 46-93-9044wufmakzfprCQ Hardeep Mckenize Work Phone: [facility] Work Phone: Start: 06-28-2023 End: 84-11-6457Jgiweoh encounter procedureDO Hardeep Magaly Work Phone: [facility] Phys[facility] GroupEstelle [facility] Work Phone: Start: 06-25-2023 End: 49-08-4809Kyhxxbxju department patient visitJohn ParenteFacility:FTMCStart: 06-25-2023 End: 65-27-0676Dljryttrl department patient visitJohn Chirag [facility] Start: 67-07-5599Wrv-patient / Non-visitDO Hardeep Magaly Work Phone: [facility] Physician GroupKlickitat Valley Health Professional Wi Work Phone: Start: 53-17-4854Dhq-patient / Non-visitDO Hardeep Magaly Work Phone: [facility] Work Phone: Start: 06-21-2023 End: 62-24-8403Djougyjkn department patient visitStacia DwyerFacility:[facility] Start: 06-21-2023 End: 26-66-8472Ibcsldbdi department patient visitStacia Dwyer [facility] Start: 06-19-2023 End: 26-97-8932kfuuddeyliSV Seth M. Ruggles Work Phone: [facility] Work Phone: Start: 06-19-2023 End: 62-79-3563Sryutgt encounter procedureDO Hardeep Mckenzie Work Phone: [facility] Cardiology Work Phone: Start: 06-18-2023 End: 22-74-9091Gyzszsigh department patient visitAstrit Erich JordanariFacility:[facility] Start: 00-86-9667Ffnrjmbyt encounterNeurology ProviderSkyline Medical Center Comment on above:Symptoms (Blood pressure is high)medication concern ( seizure meds)Start: 06-18-2023 End: 47-08-6208Jgiashkiu department patient visitAstrit Erich [facility] Start: 06-17-2023 End: 50-85-7454Slzqzqadd department patient visitAstrit Erich JordanariFacility:[facility] Start: 06-17-2023 End: 25-60-1360Pfzyxzleu department patient visitAstrit Erich [facility] Start: 06-16-2023 End: 49-76-5361Ttyjvzvze department patient visitTim ThomasFacility:[facility]ZONAtart: 06-16-2023 End: 23-28-7868Rwsupfuae department patient visitTim Patrick [facility] Start: 06-15-2023 End: 04-13-1969Cvezoue encounter Yunier Lilly MD Work Phone: NeurologyComment on above:Nonspecific abnormal electroencephalogram (EEG) (Primary Dx); Seizure (HCC); Morbid obesity (HCC)Start: 06-15-2023 End: 27-31-9152drmomujjxlWRTQ KHOURYFacility:[facility] Centertart: 06-14-2023 End: 72-62-7288Ccgkrhsql department patient visitKaylelke MontezFacility:[facility] Start: 06-14-2023 End: 86-42-7489Cumfvvtis department patient visitMary Bethdeborahelke Montez [facility] Start: 62-55-3711Zah-patient / Non-visitDO Hardeep Magaly Work Phone: [facility] Work Phone: Start: 06-08-2023 End: 15-27-1824Myeutuyzx department patient visitTim PatrickFacility:[facility]ONAtart: 06-08-2023 End: 89-77-9816Rzxwdnhhd department patient visitTim Patrick [facility] Start: 40-86-2369Hhb-patient / Non-visitDO Hardeep Magaly Work Phone: [facility]ell[facility] Work Phone: Start: 05-30-2023 End: 90-66-4508uvyikynkrxGR Hardeep M. Magaly Work Phone: [facility] Work Phone: Start: 05-30-2023 End: 06-96-2691Aeljpqq encounter procedureDO Hardeep Magaly Work Phone: [facility] Cardiology Work Phone: Start: 31-36-8091Dlblayvhz encounterErimary beth Farr APRN.CNP Work Phone: Cerebrovascular CenterComment on above:ResultsStart: 05-28-2023 End: 25-80-1090mldvlzntezRCSFGPV E. EASLEYFacility:[facility]ONAtart: 05-28-2023 End: 95-72-5945Koeadca encounter procedureROCIO MARINELLI [facility] Start: 05-25-2023 End: 64-83-3890duzjyyyzkrGPYKKkdrtblq:[facility] Medical Centertart: 05-25-2023 End: 29-77-9696Ziqiwzw encounter procedureSjoy Draper OD Work Phone: OphthalmologyComment on above: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 (Primary Dx); PCO (posterior capsular opacification), right; Pseudophakia, right eye; Retinal hemorrhage of left eye; Chorioretinal scar of left eye; Combined form of age-related cataract, left eyeStart: 05-14-2023 End: 01-40-8421Dzaukpt encounter procedureDO Hardeep Mckenzie Work Phone: [facility] Family Medicine [place] Work Phone: Start: 25-20-6536Jip-patient / Non-visitDO Hardeep Magaly Work Phone: [facility] Work Phone: Start: 08-52-3552eeokgwljuwZjfd Moore MD Work Phone: ccF [facility] MAINStart: 15-67-4727Cjumnx-up encounterKey Gracia MD Work Phone: Endovascular CenterComment on above:Deliverer Outside - Hospital Follow Up (Endovascular LENY)Start: 00-67-3162Qwk-patient / Non-visitDO Hardeep Magaly Work Phone: [facility] Physician GroupKlickitat [facility] Work Phone: Start: 10-18-2277Dqd-patient / Non-visitDO Hardeep Magaly Work Phone: [facility] Work Phone: Start: 46-56-0733Spb-patient / Non-visitDO Hardeep Magaly Work Phone: [facility] Work Phone: Start: 05-04-2023 End: 53-22-1190Ighootkrxs and management of inpatientSETH GRACIA MAGALY Facility:[facility] Centertart: 77-15-7070Tgt-patient / Non-visitDO Hardeep Magaly Work Phone: [facility] GroupKlick[facility] Work Phone: Start: 80-37-8236wsbqjiwmuwPojbx Rawson FLOW MACHINE OPERATORChinmayMANUFACTURERS REPRESENTATIVE Work Phone: Critical CareStart: 87-51-6576Hkf-patient / Non-visit DO Hardeep Magaly Work Phone: [facility] GroupKlickitat [facility] Work Phone: Start: 05-03-2023 End: 87-73-4151Paukyfqqhu and management of inpatientSETH GRACIA MAGALY Facility:[facility] Centertart: 05-03-2023 End: 52-51-7918Cgngyratq department patient visitStacia DwyerFacility:[facility] Start: 05-03-2023 End: 59-17-4974Wwupqaqzi department patient visitStacia Dwyer [facility] Start: 04-30-2023 End: 50-02-6654Hxpljvwro department patient visitDO Hardeep Mckenzie Work Phone: [facility] Work Phone: Start: 04-23-2023 End: 55-00-7063wvxbpeoctoBomd Magaly Other [facility] Listen Edition Other Start: 41-19-8442Acrgnbsep encounterSeth MagalyFPG Family Medicine [facility] Hospitaltart: 04-20-2023 End: 10-05-1762Oroburkoa department patient visitMary Bethylelke Leon DorussamdinaFacility:[facility] Start: 04-20-2023 End: 25-35-3336Drklmpzms department patient visitDo Montez [facility] Start: 04-16-2023 End: 19-05-8889yyhjkldyusVbwhf Michael Other [employer] Other Start: 54-63-1169Hccpyd outpatient visit 25 minutes Theodora DilshadG CardiologyStart: 04-11-2023 End: 97-96-6133jxsacmfdnoVpbav Michael Other noShanghai [employer] Other Start: 76-47-9028Jrbqmqida encounterLinda AcegeFPG CardiologyStart: 03-28-2023 End: 09-32-6377sqbbcouwzhEcwet Michael Other noShanghai [employer] Other Start: 89-81-4800Kceakzqox encounterLinda AcegeFPG CardiologyStart: 03-15-2023 End: 99-72-0098ctacukpmnyZjwg Magaly Other [employer] Other Start: 08-60-7492Kxgnnbhzy encounterSeth MagalyFPG [facility] Centertart: 02-16-2023 End: 11-13-2320nuumruclzwIvgr Magaly Other [place] Listen Edition Other Start: 83-51-0941Jgssxugfw encounterSeth RugglesFPG Family Medicine [facility] Hospitalrt: 02-12-2023 End: 44-61-9504atcrnigltdDaoej Michael Other [place] [employer] Other Start: 89-55-8314Dkjilk outpatient visit 25 minutes Theodora MichaelFPG CardiologyStart: 76-51-0169Ohaktvcfh encounterSeth RugglesFPG Family Medicine [facility] Hospitalrt: 02-12-2023 End: 31-60-0033Ybkxzbw encounter procedureDO Hardeeperich RoMagaly Work Phone: [facility] Cardiology Work Phone: Start: 02-07-2023 End: 67-60-8617lbqdaiqmwzAC Hardeep Solano Magaly Work Phone: [facility] Work Phone: Start: 02-07-2023 End: 36-67-8759Jlzsfik encounter procedureDO Hardeep Magaly Work Phone: [facility] Work Phone: Start: 01-19-2023 End: 86-49-1122eeworweiwxNass Magaly Other [place] [employer] Other Start: 40-69-7030Kbopspxvn encounterSeth JayjayglnimaFPG Family [facility] Centertart: 01-18-2023 End: 35-14-5152xkqmbdvamjNwnhh Michael Other [place] [employer] Other Start: 21-19-3350Kmermn outpatient new 45 minutesLinda NjorogeFPG CardiologyStart: 16-16-9051Zbqhlxgot encounterLinda NjorogeFPG Referral CoordinatorStart: 01-16-2023 End: 94-53-3745gmwmiagvxvOnvr Magaly Other [employer] Listen Edition Other Start: 94-88-9277Kkhtipbbs encounterSeth RugglesFPG Family Medicine [facility]Conne[facility] Hospitaltart: 01-04-2023 End: 80-45-1049cbdyhmelmjKdft Magaly Other [place] [employer] Other Start: 89-92-8032Xzzatwuwq encounterSeth RugglesFPG [facility] Hospitaltart: 01-02-2023 End: 40-98-8312lnasqltlkhTmhp Magaly Other [place] [employer] Other Start: 27-32-9302Pyjmcnwdy encounterSeth RugglesFPG [facility] Hospitaltart: 01-01-2023 End: 60-85-2979mtjdaekpxoAtrs Magaly Other [place] [employer] Other Start: 72-59-2367Krhalowcb encounterSeth RugglesFPG [facility] Medicine [facility] Hospitaltart: 12-29-2022 End: 71-82-7113qnzxggveviMagt Magaly Other [employer] Solutionsco[facility] Listen Edition Other Start: 16-76-2196Ritjdhtlc encounterSeth RugglesFPG [facility] Hospitaltart: 07-55-6727Vhdccoill encounterSeth M Amgaly Work Phone: [phone]-Pbdkn [facility] [address] DO Work Phone: Start: 11-16-2022 End: 30-64-4451suohrmkfstBlazjd IbrahimFacility:FTMCStart: 11-16-2022 End: 60-39-9883Qfcyttv encounter procedureHasparkle Tellezim [facility] Start: 11-07-2022 End: 43-84-4396Yzqkjpc encounter procedureTonia Arias Vascular Surgery Start: 11-07-2022 End: 06-30-0879lxnslcygquSR Hardeep M. Magaly Work Phone: [facility] Listen Edition Other Start: 10-33-9183Pzznuy outpatient new 30 minutes Patrick Manjarrez OrthopedicsStart: 11-02-2022 End: 84-88-7228zsbbirtbvzVI Hardeep M. Magaly Work Phone: [facility] Work Phone: Start: 11-02-2022 End: 89-58-1411Hnhxwod encounter procedureDO Hardeep Magaly Work Phone: [facility] [place] [facility] Start: 11-01-2022 End: 74-68-3544eqjcggvyacNmvh Magaly Other [place] [employer] Other Start: 72-90-2207Pahilpxxm encounterSeth RugglesFPG Family Medicine NorwalkStart: 12-63-5461Nqxvqrxkg encounterSeth M Magaly Work Phone: [phone]-Uolpw [facility] [address] DO Work Phone: Start: 09-25-2022 End: 56-91-7324qsyrerknbzIkaa Magaly Other [place] [employer] Other Start: 24-78-1730Zrsfsc outpatient visit 25 minutes Hardeep RugglesFPG Family Medicine NorwalkStart: 44-47-6043Bxslcktnc encounterSeth JairoG Family [facility] Centertart: 49-04-3103qtzxgvurpmZi. Angélica YatesFacility:[id number]: 65-22-6161Lvczjg outpatient visit 25 minutesSeterich Mckenzie Work Phone: [phone]-Glsol [facility] [address] DO Work Phone: Start: 18-99-7980vqhaoyllvtUh. Angélica Yates Facility:[id number]: 35-00-1563oflbmaubjzJe. Joseph Wallace Facility:[id number]: 91-35-6442wwarfudhodYi. Hardeep MckenzieFacility: Start: 08-01-2022 End: 71-59-5369Mptravackp and management of inpatientAlebraulio Bales [facility] 08-01[facility]2022 End: 40-55-7397Pynekckwfm and management of inpatientGeorge Juliaidaa [facility] Start: 26-38-6424zkzytgovkaVtChinmay Yates Facility:[id number]: 07-21-2022 End: 30-27-9091bcemsqiojmAB Hardeep Mckenzie Work Phone: [facility] Work Phone: Start: 07-21-2022 End: 07-03-3890Cbgmxtj encounter procedureDO Hardeep Mckenzie Work Phone: [facility]-Ultrasound Main [place] Work Phone: Start: 07-04-2022 End: 87-90-1596mwsrmptuzqOmrg Ruggles Other [place] [employer] Other Start: 23-43-5167Dpcvptwko encounterSeth MagalyFPG [facility]tart: 06-30-2022 End: 38-51-8193zgvfkmtsejVzka Magaly Other noAMS-Qi Listen Edition Other Start: 73-32-7907Zwxyqoemj encounterSeth JayjayglesG [facility]: 06-29-2022 End: 63-64-5165vhnelzkctrAzuf Magaly Other noAMS-Qi Listen Edition Other Start: 40-36-2426Nltcijrtv encounterSeth JayjayglesSaint Monica's Home SanduskyStart: 06-24-5905pukbkgklvaSwChinmay Pinoahim Facility:[id number]: 06-27-2022 End: 57-19-1502UlczrzodrklCvelrvuz S Kaler [facility] Start: 06-20-2022 End: 04-65-5888Fafnjib encounter procedureSHARSHAL ZARCOES [facility] Start: 06-19-2022 End: 60-32-3698dgukwtqyzjZjzp Magaly Other [facility] Listen Edition Other Start: 69-45-8948Lttcmf outpatient visit 25 minutes Hardeep JayjaynimaPacifica Hospital Of The Valleytart: 52-14-7574myqflmsireTdisik Hamilton RT(R)RadiologyComment on above:Radiology XRStart: 05-19-2022 End: 95-15-1454Hntykox encounter procedureLima Mclean RT(R)MICHAEL RILEY Comment on above:Contusion of right foot, initial encounter (Primary Dx); Enthesopathy of foot; Tendonitis, Achilles, left; Calcaneal spur of left foot; Acquired dysmorphic toenailStart: 05-19-2022 End: 10-08-8293Dacxgwzpvd hospital visit by physicianEver Pandya Work Phone: RadiologyComment on above:Pain [R52]Contusion of right foot, initial encounter [S90.31XA]Start: 05-18-2022 End: 39-14-6118cwfeqyogjlRI ROLAN BEAL .Facility:Z1Zqkvj: 04-25-2022 End: 88-57-1400qqjnyudrbiXT ROLAN Kimberly BEAL .Facility:X8Lvxys: 04-13-2022 End: 25-43-8178aoiyplcejzQyrl Magaly Other [place] [employer] Other Start: 31-33-1358Yxbrnlxfw encounterSeth RugglesFPG [facility] Hospitaltart: 04-11-2022 End: 26-26-5840nstgeabobhGR ROLAN Kimberly BEAL .Facility:O8Gubpl: 04-06-2022 End: 00-23-1129tjbakbfiawBjhh Magaly Other [facility] Listen Edition Other Start: 00-88-5219Lfrwxh outpatient visit 15 minutes Hardeep RugglesFPG Family Medicine [facility]tart: 03-22-2022 End: 61-77-0770Jpcdfit encounter procedureSETH M MAGALY [facility] Start: 03-21-2022 End: 12-58-3365khscsjpxulKfmi Magaly Other [facility] Listen Edition Other Start: 88-23-6335Uwrwnq outpatient visit 15 minutes Hardeep RugglesFPG Family Medicine [facility] centerkStart: 90-06-2637Erhtluwpv encounterSeth RugglesFPG [facility] Hospitaltart: 02-16-2022 End: 58-03-9930zbrxoixkhvJdem Magaly Other [facility] Listen Edition Other Start: 55-99-8118Gkxtodgut encounterSeth RugglesFPG [facility] Hospitaltart: 02-13-2022 End: 70-36-8964dbrtvwpbdxVtfi Magaly Other [place] [employer] Other Start: 87-38-5897Zqejvi outpatient visit 15 minutes Hardeep MckenzieFPG [facility] Hospitaltart: 57-09-7265Byieneqjq encounterSeth RugglesFPG [facility] Hospitaltart: 02-07-2022 End: 19-15-4402pxupkeaqseXbuv Magaly Other [place] Other Start: 47-61-1196Bkzahrvxy encounterSeth RugglesFPG [facility] Hospitaltart: 92-26-7793Cyzjpiaxo encounterSeth RugglesFPG [facility] Hospitalrt: 02-06-2022 End: 87-50-2289qgrgutovskDU Hardeep BrittanyChinmay Magaly Work Phone: [place] [employer] Other Start: 02-06-2022 End: 32-35-4930Lpzpfai encounter procedureDO Hardeep Mckenzie Work Phone: [facility] Start: 02-02-2022 End: 88-00-2007ihdziblwvaZMDHDPJ PROVIDERFacility:METROHealthStart: 02-02-2022 End: 45-21-1930gdiygjjhrbHk8 ResourceSelect [facility] Emergency Triage, Treat and TransportStart: 02-02-2022 End: 46-20-1277Lyllsjwbv department patient visitTiffanijanessa Merchant Koko [facility] Emergency Triage, Treat and Transport Comment on above:ArrivedStart: 01-31-2022 End: 18-97-6077miwvupbmfwKZ ROLANKARISHMA MoyGl[place] Listen Edition Other Start: 76-56-6674Dzcschrlx encounterSeth RugglesFPG Family [facility] Centertart: 01-18-2022 End: 83-93-0659sozosgpyeiZahi Magaly Other [facility] Listen Edition Other Start: 71-69-5542Ivobrf outpatient visit 15 minutes Hardeeperich Baer [facility]tart: 01-12-2022 End: 49-51-6071Srixsct encounter procedureSETH Brittany MAGALY [facility] Start: 01-11-2022 End: 14-93-5092wnrqoblhxpAujy Magaly Other [facility] Listen Edition Other Start: 62-47-2254Ldybmllwq encounterSeth MagalyLECOM Health - Millcreek Community Hospitalrt: 01-10-2022 End: 72-45-1717XeawhsgcsKalyeu Yates [facility] Start: 47-79-6580Nuafyjuxl encounterSeth Brittany Magaly Work Phone: [phone]-Jgocw [facility] [address] DO Work Phone: Start: 08-76-8579Eqlehpgtr encounterSeth M Magaly Work Phone: [phone]-Yzxmi [facility] [address] DO Work Phone: Start: 12-27-2021 End: 09-69-8794tauagpxkatTpfn Magaly Other [facility] Listen Edition Other Start: 34-05-2882Faagkvxpc encounterSeth MagalyLECOM Health - Millcreek Community Hospitalrt: 12-27-2021 End: 14-87-9941Kyxclqi encounter Jason Angel MD Work Phone: OphthalmologyComment on above:Retinal hemorrhage of left eye; Chorioretinal scar of left eye; 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 Angélica Enriquez Yates Facility:[id number]: 12-20-2021 End: 06-97-2817tzzhmkkjpjJsbu Magaly Other [facility] Listen Edition Other Start: 23-83-2060Brruep outpatient visit 25 minutes Hardeep MagalyFPG [facility] Hospitaltart: 12-20-2021 End: 44-03-2914Yxigekp encounter Yenny [facility] Start: 12-16-2021 End: 50-54-2097stcuyvyxgtXpvl Magaly Other [facility] Listen Edition Other Start: 91-80-7563Fdoghxvck encounterSeth MagalyFPG [facility] Hospitaltart: 12-15-2021 End: 59-57-4695FeocpxjroroKvwehxlg S Kaler [facility] Start: 12-15-2021 End: 24-25-1928vskftasiluPi7 ResourceMetroOhiohealth [facility] Emergency Triage, Treat and TransportStart: 12-15-2021 End: 13-22-8467Yqqrhmlzv department patient visitEt3 ResourceMetroOhiohealth [facility] Emergency Triage, Treat and TransportComment on above:ArrivedStart: 12-11-2021 End: 03-96-8507Uyimnibmd to same day surgery greeleyChandan SMITH [facility] Start: 12-05-2021 End: 53-28-0308pnpierufcwUsoi Magaly Other [facility] Listen Edition Other Start: 36-14-4065Dnapsiqps encounterSeth RugglesFPG [facility] Hospitaltart: 51-14-6401Ghott Solis Azar MD Work Phone: [phone]-Rnuln [facility] [address] DO Work Phone: Start: 11-30-2021 End: 69-25-5471BhyljesljxsKbshfkj Katherine SALINAS [facility] Start: 11-30-2021 End: 89-48-4775jyafwukcwqJpcb Magaly Other [place] [employer] Other Start: 32-98-6047Aaclxwkcd encounterSeth RugglesFPG [facility] Hospitaltart: 11-23-2021 End: 10-00-0659KqggfvlgjvqEkoqc AMIR [facility] Start: 11-07-2021 End: 34-15-5165upnuvidxauZrpjrfu Buehrer Other [place] [employer] Other Start: 03-86-8385Umwuzn outpatient visit 25 minutes Royce Mckinney Vascular SurgeryStart: 11-07-2021 End: 73-17-9942Rvklmun encounter procedureDO Hardeeperich Mckenzie Work Phone: [facility] VascularStart: 11-01-2021 End: 85-29-7647tdcybccqjeYJ HARDEEP M JAYJAYGLESFacility:C4Ixavm: 08-25-2021 End: 90-92-4172tftuzakychKfxp Magaly Other [place] [employer] Other Start: 81-46-5777Hnfudmaid encounterSeth RugglesFPG [facility] Hospitalrt: 08-22-2021 End: 08-33-4457vvnnoxjhbxAylu Magaly Other noAMS-Qi Listen Edition Other Start: 00-04-2060Jiagvwnmr encounterSeth RugglesFPG [facility] Hospitaltart: 08-01-2021 End: 23-82-9295tsntnpyhtkWpwl Magaly Other [facility] Listen Edition Other Start: 37-58-1874Ajcpovqgn encounterSeth RugglesFPG [facility] Hospitalrt: 07-25-2021 End: 55-09-3558sietjdrsqdSmpp Magaly Other [facility] Listen Edition Other Start: 75-46-4099Jngcihuxp encounterSeth RugglesFPG [facility] Hospitalrt: 07-11-2021 End: 50-30-3070rcgtfmlknaInlt Magaly Other [facility] Listen Edition Other Start: 82-14-0364Hkfgul outpatient visit 15 minutes Hardeep RugglesFPG [facility] Hospitalrt: 07-06-2021 End: 56-43-4434klzszxeyimTezy Magaly Other [facility] Listen Edition Other Start: 16-08-6337Euwgibygg encounterSeth RugglesFPG [facility] Hospitalrt: 91-63-0367gcvetvachuIWSO MCINTYRE .Facility:B8Agxdz: 06-22-2021 End: 74-12-8181vnsuntscjaMzcf Magaly Other [facility] Listen Edition Other Start: 62-99-6031Rcizem outpatient visit 15 minutes Hardeep RugglesFPG [facility] Hospitaltart: 06-17-2021 End: 47-65-8538ucybzieufkZxue Magaly Other noShanghai [employer] Other Start: 15-94-9688Cjyluakqm encounterSeth RugglesFPG [facility] Hospitaltart: 05-10-2021 End: 00-28-6631jwjlzitzgbOfmcgi Ruttino Other noPixel[employer] Other Start: 60-65-8701Kfgvvcktm encounterTonia Arias Referral CoordinatorStart: 05-09-2021 End: 71-40-7773hntjulxmgpHipefz Ruttino Other [facility] Listen Edition Other Start: 49-54-4168Ykhgdd outpatient visit 15 minutes Tonia Arias Vascular SurgeryStart: 04-08-2021 End: 09-93-5229cufzbabzxaRyoz Magaly Other [facility] Listen Edition Other Start: 49-58-0638Bxuhbsabw encounterSeth RugglesFPG [facility] Hospitalrt: 04-04-2021 End: 21-61-0637bwhjnvruauVtvi Magaly Other noAMS[employer] Listen Edition Other Start: 23-29-2213Aswfycbcd encounterSeth RugglesFPG [facility] Hospitaltart: 03-29-2021 End: 58-30-6872svhuapiazbQkxm Magaly Other noShanghai [employer] Other Start: 58-87-8441Hnyczfiuf encounterSeth RugglesFPG [facility] Hospitaltart: 03-08-2021 End: 21-21-8825abocjngoutSwmr Magaly Other Qufenqi Other Start: 57-31-2293Ydxqlksyh encounterSeth RugglesFPG Family [facility] Centertart: 02-23-2021 End: 10-03-4076gqrhuairrfKqta Magaly Other [facility] Listen Edition Other Start: 32-00-3986Zaylsgjip encounterSeth RugglesFPG [facility]tart: 02-02-2021 End: 84-14-1836ppcbmpggdnKuur Magaly Other [facility] Listen Edition Other Start: 44-47-5261Fruhrbhok encounterSeth RugglesFPG [facility]tart: 01-24-2021 End: 66-31-2873gtocfzmkpcNthz Magaly Other [facility] Listen Edition Other Start: 95-82-7569Ipxaxiedh encounterSeth RugglesFPG [facility]tart: 01-10-2021 End: 64-47-3914ylkljjcjkbBntq Magaly Other [facility] Listen Edition Other Start: 35-67-6692Cxqgsalbh encounterSeth RugglesFPG [facility] Centertart: 73-19-7094Gbfeauhbh encounterJeoriana HaleyrerFPG Vascular SurgeryStart: 85-03-2826Cuwonfhwe encounterSeth RugglesFPG Family [facility] Centertart: 59-87-1797Ajgdbp-up encounterJeoriana HaleyrerFPG Vascular SurgeryStart: 89-96-3059KTRW visit new patientJeoriana ChristiansonrFLYRIC Vascular SurgeryStart: 01-17-2019 End: 18-40-0654Ghjgohd encounter procedureSharshal MckenzieUpxloen-Oqr-Pgowfdei Testing Start: 77-49-5880Eyiebstnwu RecurringSeth Magaly-Wound Care [place]Start: 01-03-2019 End: 82-54-6756Qmzsahj encounter procedureSharshal Magaly-[facility] Start: 12-25-2018 End: 96-70-7992Lyhnjgc encounter procedureSeth Magaly-XRay [facility] OrthoStart: 12-15-2018 End: 78-86-4126Odzldsbnvm and management of inpatientWAHECTOR CELESTINBucyrus Community Hospitaltart: 12-14-2018 End: 86-94-5063Uotvpsbjvw and management of inpatientSjolynn WillsTVZ CAR 2 Start: 92-10-5321Edwhllnhin RecurringSeth Magaly-Physical Therapy [place]walkStart: 11-29-2017 End: 34-18-3594Pksmzcp encounter procedureSeth Magaly-XRay [place] OrthoStart: 08-22-2017 End: 95-23-6063KbbnljfbraHPJG M RUGGLESFacility:[facility]tart: 08-22-2017 End: 89-77-4585YnyyhqnmwnOAHCACDGPZT SANFORDFacility:[facility]tart: 08-07-2017 End: 02-31-1111YytcojzgvfVAKE PARSONSFacility:[facility] Procedures DateProcedureProcedure DetailPerforming ClinicianStart: 25-11-2880Ywxjm spine lumbosacral 2/3 Rebeca Wood MD Work Phone: Start: 49-53-6490Zasxn dip stick/tablet rgnt auto w/o microscopyRebecca Wood MD Work Phone: Start: 01-11-2025 End: 19-25-3962Ckbwdcnsg Comparison study - date and timePrecious Preet VICTOR Work Phone: Start: 21-62-0558Ipahmwkqk Comparison study - date and timePrecious Preet VICTOR Work Phone: Start: 91-86-8482Cpvehstso mammography of bilateral breastsSeth Magaly DO Work Phone: Start: 01-11-2024 UrineSeth Magaly DO Work Phone: Start: 29-43-5014Rhdftheiz Comparison study - date and timeZuanthony Bob MD Work Phone: Start: 71-97-8439Rvvnb spine thoracolumbar junction min 2 viewsValdez Estrada MD Work Phone: Start: 58-70-0695Kafz-cataract laser surgeryVick Domínguez MD Work Phone: Start: 59-61-6168Mg head/brain w/o contrast material Derick Edwards FLOW MACHINE OPERATOR-MANUFACTURERS REPRESENTATIVE Work Phone: Start: 16-76-6130Ejeyl of Isabell Jesus MD Work Phone: Start: 38-64-2906Cygujmyltl exam abdomen 1 Carlos Saldana MD Work Phone: Start: 76-11-2258Wvpmgwkbcc exam abdomen 1 Alejandro Hernandez MD Work Phone: Start: 68-63-6531Pgiop of Isabell Jesus MD Work Phone: Start: 01-64-4609Sjyol of Isabell Jesus MD Work Phone: Start: 08-23-7181Npdsp of Isabell Jesus MD Work Phone: Start: 11-64-4783Edzop of Isabell Jesus MD Work Phone: Start: 40-87-5121Pmqfr metabolic panel calcium total Shashalulljanessa Jesus MD Work Phone: Start: 22-48-2524Vxr brain brain stem w/o contrast materialRonnie Jesus MD Work Phone: Start: 42-17-8075Xhxfl of Isabell Jesus MD Work Phone: Start: 49-01-0156Ajebx of Isabell Jesus MD Work Phone: Start: 43-98-4741Ekr cont rec w/video by tech min 8 channelsKadier Familia VICTOR Work Phone: Start: 06-60-6423Wjhauxyfcf exam abdomen 1 view Ronnie Jesus MD Work Phone: Start: 90-09-2387Qymlkdmedj exam chest single view Ronnie Jesus MD Work Phone: Start: 08-16-2023 End: 79-33-9479Rrpmhxszda exam abdomen 1 viewRonnie Jesus MD Work Phone: Start: 08-16-2023 End: 56-17-2413Vycpcpkfyw exam chest single viewRonnie Jesus MD Work Phone: Start: 49-71-0734Jsybl of magnesiumRonnie Jesus MD Work Phone: Start: 81-41-5602Igsnz cath carotid/innom art angio intrcranl artMaya Elida PA-C Work Phone: Start: 21-69-7584Uvanwhbepqekh embolization any meth rs&iMaya Elida PA-C Work Phone: Start: 56-72-0349Wqxgf of magnesiumMorgan Fredrick PA-C Work Phone: Start: 06-84-4683Cv head/brain w/o contrast material Toshia Pinetops PA-C Work Phone: Start: 21-50-7333Tpvdd of lactateJeremiah Ochoa MD Work Phone: Start: 64-25-1547Gfzck gases any combination ph pco2 po2 co2 omv9ZnrvxufniJeremiah Ochoa MD Work Phone: Start: 05-73-2272Edhzgvywqkkanfucl measurement Jeremiah Ochoa MD Work Phone: Start: 08-14-2023 End: 97-53-6967TACE HOLES, HEMATOMA EVACUATIONMichael Marcelino Li MD Work Phone: Start: 74-97-3103Zrggk of magnesiumViviana Marrero PA-C Work Phone: Start: 84-15-8022Rhjncrnabamlpb time partial plasma/whole bloodViviana Marrero PA-C Work Phone: Start: 10-78-4841Fablmou blood reagent stripPrerna Nithya VICTOR Work Phone: Start: 37-22-3495Pitckxx blood reagent stripJustlindsey Cotter MD Work Phone: [phone]: 84-83-2738NKIKOQ TOP TUBE, URINEJustin Vahe VICTOR Work Phone: [phone]: 26-49-9951Horpj dip stick/tablet rgnt auto w/o microscopyRichie Emmanuel MD Work Phone: Start: 88-95-3095QCWIR TUBEJustin Vahe VICTOR Work Phone: [phone]: 83-25-0008LQXKB LIHEP TOP TUBE, BLOODJustin Vahe VICTOR Work Phone: Start: 51-18-2311OLKVB BLUE TOP TUBE, BLOODJustin Vahe VICTOR Work Phone: Start: 06-34-0180Yjsln of magnesiumKacy Moctezuma DO Work Phone: Start: 67-46-3056Wt head/brain w/o contrast material Ross Castorena MD Work Phone: [phone]: 08-53-2284Xqjqbzncl Comparison study - date and timeEric Reymundo DO Work Phone: [phone]: 60-69-4459Lgopq of lactateMamalinda Castorena MD Work Phone: Start: 46-00-5915Xycih typing, ABO, Rho(D) and RBC antibody screeningRoss Castorena MD Work Phone: [phone]: 50-00-7515Wyyu screen quantitative alcohols Ross Castorena MD Work Phone: [phone]: 31-91-0207Zwlad of Jens Sanchez MD Work Phone: [phone]: 74-82-3141Bfmqikezcjysix vitamin b-12Kelly Adams FLOW MACHINE OPERATOR-MANUFACTURERS REPRESENTATIVE Work Phone: [phone]: 90-10-7877Tgipo of Jens Sanchez MD Work Phone: [phone]: 07-31-2023 End: 96-55-8179Wrn routine ecg w/least 12 lds trcg only w/o i&rChristtrev Sanchez MD Work Phone: [phone]: 98-00-6307Zjmli of Jens Sanchez MD Work Phone: [phone]: 07-30-2023 End: 95-61-1574Ufgzonqkr Comparison study - date and timeAndmary ann Hummel PA-C Work Phone: [phone]: 84-88-7887Iirls of Jens Sanchez MD Work Phone: [phone]: 53-68-7065Ng head/brain w/o contrast material Yunior Sanchez MD Work Phone: [phone]: 20-27-9837Efjbxayttbuluu time partial plasma/whole bloodVickie Hummel PA-C Work Phone: [phone]: 07-61-5951Iduyz typing serologic aboAndmary ann Hummel PA-C Work Phone: [phone]: 82-97-1991Bo head/brain w/o contrast material Vickie Hummel PA-C Work Phone: [phone]: 52-06-6228Svehj of lactateJanny Ellison MD Work Phone: [phone]: 84-12-8639Ucsdl typing, ABO, Rho(D) and RBC antibody screeningJanny Ellison MD Work Phone: Start: 14-98-8559Olfy screen quantitative alcohols Janny Ellison MD Work Phone: Start: 49-65-2364Tbnecxvvyuqp ophthalmic imaging Kia Alex Willy OD Work Phone: Start: 16-70-6556Fvvufuju screenSETH RUGGLESComment on above:Order Comment: Specimen Type: BLOOD SPECIMENOrdering Facility: [facility] Address:[address] [place], [place] [address]Performed By: #### TSCR ####CC MAIN BLOOD BANKCLIA [id number] [place] [address] [place] AMERICAStart: 27-15-4160Ukvqsi scan of lower limb veinsDO Hardeep Magaly Work Phone: Start: 24-03-6921Zjgtk chest X-rayDO Hardeep Maglay Work Phone: Start: 27-65-3846Hjmbszvmo mammography of bilateral breastsDO Hardeep Magaly Work Phone: Start: 84-71-5860Imfsz X-ray of left humerusDO Hardeep Magaly Work Phone: Start: 91-55-1445Sdtii X-ray of left shoulderDO Hardeep Magaly Work Phone: Start: 05-19-2022 End: 08-34-1953Jvopw foot complete minimum 3 viewsJohn Juventino DPM Work Phone: Start: 53-88-5360Pgkwjcgzy mammography of bilateral breastsDO Hardeep Magaly Work Phone: Start: 33-62-2235Ytjoqmtwnuef ophthalmic imaging Ariela Angel MD Work Phone: Start: 17-00-7226Sedhxkfosxlu coronary intervention Roz RAMIREZ Comment on above:PCI of RCAPCI of RCAStart: 11-07-2021 Doppler ultrasonography of bilateral carotid arteriesDO Hardeep Magaly Work Phone: Start: 01-06-2019 End: 69-95-2648Rxkplbb microbial cultureSeth [facility] HospitalesStart: 01-06-2019 End: 40-41-5350Igradgicn microbial cultureSeth [facility] HospitalesStart: 01-06-2019 Investigation of transfusion reactionSeth [facility] HospitalesStart: 15-65-3776Loaemujgl mammographySetMedical Center ClinicesStart: 18-52-8647C-ray of right kneeSeth [facility] HospitalesStart: 75-11-9532Kirvn metabolic panel calcium totalWASamaritan Pacific Communities Hospitalart: 63-80-2883Dfv bact stool aerobic isol salmonella&shigellWASamaritan Pacific Communities Hospitalart: 12-18-2018 Lactoferrin fecal qualitativeWASamaritan Pacific Communities Hospitalart: 28-39-6400LF CONSULT TO HOME CARE NEEDSLAWTON IN[facility] GISELLAPresbyterian Santa Fe Medical Centerart: 14-74-5793ZWDXJNWIU PATIENTWASamaritan Pacific Communities Hospitalart: 83-60-9972TWAGLDPD OXYGEN THERAPY PROTOCOLWASamaritan Pacific Communities Hospitalart: 61-74-9136Elmib metabolic panel calcium totalWASEColumbia VA Health Careart: 62-74-0216Pprqb count complete automatedWASamaritan Pacific Communities Hospitalart: 48-97-3468Zoipd metabolic panel calcium total Laurie S Allan Work Phone: Start: 88-37-9149Ewhol count complete automatedCharles S Allan Work Phone: Start: 16-43-8892UV CONSULT TO INFECTIOUS DISEASES ELIAS CELESTINNew Haven: 77-33-3762Swhd screen quantitative vancomycinWASEMASHA CELESTIN Start: 23-39-3544Wcqm screen quantitative vancomycinShowkat madStart: 28-60-3490IINTRCWR OXYGEN THERAPY PROTOCOLWACOMMUNITY HOSPITAL – OKLAH[facility] GISELLAPresbyterian Santa Fe Medical Centerart: 20-37-1455Tmcko metabolic panel calcium totalIndian Valley Hospitalart: 85-69-8583Olkfq count complete automatedIndian Valley Hospitalart: 60-84-6131Wostdlk ionizedWASEColumbia VA Health Careart: 62-72-2682Okpbs metabolic panel calcium totalCharles S Allan Work Phone: Start: 15-53-0944Txvim count complete automatedShowkat AhmadStart: 18-54-0196Zzamgem ionizedCharles S Allan Work Phone: Start: 23-04-1463BVPSIHTF OXYGEN THERAPY PROTOCOL ELIAS KHMORAart: 66-81-0679Iesyy count complete auto&auto difrntl wbcIndian Valley Hospitalart: 67-33-3234Hzzuaxolwtrhy metabolic panelWASamaritan Pacific Communities Hospitalart: 80-39-4560LZYGY METABOLIC PANEL W/ REFLEX TO MG FOR LOW KStanbertha Aggarwal Orlop Work Phone: Start: 92-18-5117Spotd count complete auto&auto difrntl wbcStkevinbertha Aggarwal Orlop Work Phone: Start: 03-59-1203R-reactive proteinWAMERCY SOUTHWEST Start: 28-58-0171Zijdennqhhjhf rate rbc automatedIndian Valley Hospitalart: 12-15-2018 WOUND CAREWASamaritan Pacific Communities Hospitalart: 22-56-4995Etkklaqgon examination knee 3 views ELIAS GISELLAart: 92-62-4223M-reactive proteinMichael Garcia Work Phone: Start: 04-08-6575Mavpwuzqpjibm rate rbc automatedMichael Garcia Work Phone: Start: 31-26-2011SN CONSULT TO ORTHOPEDIC SURGERY WENATCHEE VALLEY MEDICAL CENTERMORAPresbyterian Santa Fe Medical Centerart: 62-53-1864Zrsjgylpno examination knee 3 viewsMichael Garcia Work Phone: Start: 63-61-1982LHPRMGR NUTRITION SUPPLEMENTSWAMERCY SOUTHWESTStart: 54-21-1531Gqgsd of magnesiumWASamaritan Pacific Communities Hospitalart: 97-42-8208Ichke of phosphorus inorganicWASamaritan Pacific Communities Hospitalart: 18-91-2661Bgohx count complete auto&auto difrntl wbcWASamaritan Pacific Communities Hospitalart: 43-71-8915Rxyqa count complete automatedWASamaritan Pacific Communities Hospitalart: 79-96-6751Kjrpwha ionizedWASamaritan Pacific Communities Hospitalart: 48-65-1515Kdpy screen quantitative vancomycinWASamaritan Pacific Communities Hospitalart: 12-15-2018 Prothrombin timeWASamaritan Pacific Communities Hospitalart: 15-12-1452Amoir of magnesiumShowselect specialty hospital - [facility]-salem Ahmad Start: 26-17-2680Inotw of phosphorus inorganicShowTransylvania Regional HospitalmadStart: 12-15-2018 Blood count complete auto&auto difrntl wbcShowselect specialty hospital - [facility]-salem AhmadStart: 81-94-4971Qtynp count complete automatedShowselect specialty hospital - win[facility]-salem AhmadStart: 96-59-7410Xxjdeej ionizedShowkat AhmadStart: 87-96-0200Rbtt screen quantitative vancomycinShowselect specialty hospital - winston-salem AhmadStart: 72-01-6376Bwdvvmwigeh timeShowselect specialty hospital - winston-salem AhmadStart: 48-92-0031TXZXVQIY OXYGEN THERAPY PROTOCOLSan Joaquin General Hospital: 94-38-3378Wjm prsmptv pthgnc organism scrn w/colony estimjIndian Valley Hospitalart: 92-10-3710Autxs of lactateWASamaritan Pacific Communities Hospitalart: 97-10-8311Wecslmy bacterial blood aerobic w/id isolatesIndian Valley Hospitalart: 95-06-3069JBRYY WEIGHTSWASamaritan Pacific Communities Hospitalart: 80-89-3083[facility] Start: 85-18-8669RLCTQ OSTOMY EVAL AND TREATIndian Valley Hospitalart: 12-15-2018 PHARMACY TO DOSE VANCOMYCINIndian Valley Hospitalart: 26-90-9715EYBYQ INTERMITTENT PNEUMATIC COMPRESSION DEVICEIndian Valley Hospitalart: 28-28-5564JFEK CODEIndian Valley Hospitalart: 07-88-0420FRRQZJJT OXYGEN THERAPY PROTOCOLSan Joaquin General Hospital: 71-20-4927OBOJVQ AND OUTPUTWASamaritan [facility] Community Hospital: 22-71-3317ZTWWWF PHYSICIAN (SPECIFY)ELIASISAIAH OBANDOHCA [facility]: 16-25-5524VB EVAL AND TREATSan Joaquin General Hospital: 93-90-9803MP EVAL AND TREATSan Joaquin General Hospital: 20-71-0756UOUUCXVHA MONITORING [facility] GISELLAHCA [facility]: 50-15-3879FYGPN SIGNSIndian Valley Hospitalart: 12-15-2018 LACTATE, SEPSISShowCritical access hospitaldStart: 39-86-3497QOHKEOC STATUS (DIRECT)ELIAS CELESTINcrystal bay: 83-33-4940Ijskkdvldz surgery (qualifier value)Chandan IQBALLIN Back sxHasan AMIR begnign tumor removalHasan AMIR Bilateral knee sxHasan AMIR bilateral shoulder sxHasan AMIR Biopsy of breastSeth M Magaly Work Phone: Cataract careAlysha Galea left foot reconstructionHasan AMIR Operative procedure on kneeSeth M Magaly Work Phone: pharygeal plastyHasan AMIR Procedure on backSeth M Magaly Work Phone: Repair of shoulderSeth M Magaly Work Phone: Specimen from breast obtained by biopsy (specimen) Haskevin AMIR Surgical procedure on eye properSeth M Magaly Work Phone: TonsillectomySeth M Magaly Work Phone: TonsillectomyAlysha Galea Plan of Treatment DateCare ActivityDetailAuthorStart: 20-40-5436Axzkhgb vaccinationTetanus (Td or Tdap) BoosterMetroHealthStart: 82-11-3907Wytzt microalbumin profileDTaP,Tdap,Td Vaccine (5 - Td or Tdap)[facility]: 62-78-0541FLdH/Tdap/Td vaccine (3 - Td)DTaP/Tdap/Td vaccine (3 - Td)[facility]: 54-46-8925Eonjjprg ScreeningDiabetes ScreeningCleveland ClinicStart: 47-70-9627Uekxntkw Screening Diabetes ScreeningGalion Hospitaltart: 58-03-8924Whpqnqzs ScreeningDiabetes ScreeningGalion Hospitaltart: 39-12-2768Zcjvhfynjc measurementBasic Metabolic PanelMetroHealthStart: 01-26-2025 End: 71-04-5990Dvcurrf encounter wighhrijx65/17/2025 1:30 PM EST Procedure Visit [facility] [address] [place] [address] Aniket Jhaveri, DPM [address] [place] [address] NOMKimberly MccainCroydon PodiatryStart: 11-21-2024 End: 54-34-7688Cowbysk encounter imznlsgwl00/12/2025 1:15 PM EDT Procedure Visit [facility] [address] [place] [address] Aniket Jhaveri, DPM [address] [place] [address] NOMS WWW PODIATRYStart: 65-45-6561UUYWE-19 Vaccine ( season)COVID-19 Vaccine ( season)MetroHealthStart: 45-86-3722Yprcpdilk vaccinationVA HOSPITAL HealthcareStart: 09-26-2024 End: 11-44-6586Ushduiq encounter wyzghljer55/18/2025 3:30 PM EDT Office Visit [facility] [address] [place] [address] Tiff Draper, [place] [address] [place] [address] 1 year full, mac OCTOphthalmologyComment on above:1 year full, mac OCTStart: 16-65-3122Fbpdkedtpn measurementBasic Metabolic Panel MetroHealthStart: 30-66-4964Nggnijqzim measurementBasic Metabolic Panel MetroHealthStart: 07-30-2024 End: 93-92-9451Gjpyiym encounter vofbszdox97/21/2025 1:00 PM EDT Office Visit [facility] [address] [place] [address] Kourtney Dill NP [address] [place] [address] SACHIN GARRETTtart: 05-22-2024 End: 25-55-2288Sbjmaun encounter procedureNOMS WWW PODIATRYComment on above: ArrivedStart: 31-03-3476Dfgkoudlb B surface antibody levelLDL Cholesterol [facility] Hospitaltart: 79-17-3517Bvkcmxh referralKettering Health Main Campus Work Phone: Start: 84-88-7601Fkdmyytqn vaccinationInfluenza Vaccine (#1)[facility] ShawStart: 11-28-2023 End: 25-60-9572Tgfivfw encounter yerzqophk17/18/2024 11:00 AM EDT Office Visit [facility] Neu[facility] [address] [place] [address] Ronald Franco MD [address] [place] [address] [facility] Start: 77-22-6943TUKSD-19 Vaccine ( season)COVID-19 Vaccine ( season)[facility] ShawStart: 49-71-2939Xiupv-19 Vaccine ( season) Covid-19 Vaccine ( season)[facility]: 31-93-8183Lyuhjtcoq vaccinationGalion Hospitaltart: 11-07-2023 End: 92-45-3470Uyladto encounter kbwjpxneo03/28/2024 10:15 AM EDT Office Visit [facility] Neurosurgery [address] [place] [address] Artem Li MD [address] [place] [address] S[address] Ctr Neurosurgery Start: 11-07-2023 End: 37-62-3328Sbdnwzzvevxr consultation with dyspylf5611/07/2023 10:15 AM EDT Telemedicine [address] Ctr Neurosurgery [address] [address] Artem Li MD [address] [place], [place] [address] [address] Surg Ctr NeurosurgeryStart: 10-26-2023 End: 51-55-9961Pgffzdi encounter wiqudlgfo51/16/2024 3:00 PM EDT Office Visit Neurology [address] [place], [place] [address] Noé Lilly MD [address] [place], [place] [address] follow upNeurologyComment on above:follow upStart: 09-25-2023 End: 41-82-7684Xezvgcg encounter ygkvbwsfm76/16/2024 3:30 PM EDT Office Visit [facility] [address] [place] [address] Tiff Draper, OD [address] [place] [address] Return for -F/U 1 week with carton counter feeder ([place]).Ophthalmology Comment on above:Return for -F/U 1 week with carton counter feeder ([place]).Start: 09-18-2023 End: 59-12-2084Zjklwjo encounter cyyfogcoy65/09/2024 10:45 AM EDT Office Visit [facility] [address] [place] [address] Vick Domínguez V, MD [address] [place], [place] [address] YAG EVAL OD: JERMAINE 05/25/23 SE - Okay per ConnieOphthalmology Comment on above:YAG EVAL OD: JERMAINE 05/25/23 SE - Okay per ConnieStart: 09-06-2023 End: 90-52-2050Uiktlcy evaluation of patient and xcxikb8009/06/2023 10:00 AM EDT Nurse Visit [facility] Neurosurgery [address] [place] [address] WrhvkKhcenk NeurosurgeryStart: 09-05-2023 End: 72-70-9018Erdinbi encounter ttcvtqvuj29/26/2024 9:15 AM EDT Appointment [facility] Radiology CT [address] [place] [address] [facility] Radiology CTStart: 08-24-2023 End: 80-64-4159PP Head WO contrastCT HEAD W/O CONTRAST Imaging Routine SDH (subdural hematoma) (HCC) Expected: 08/24/2023, Expires: 08/23/2024[employer] Work Phone: Comment on above:Expected: 08/24/2023, Expires: 08/23/2024Start: 08-22-2023 End: 71-06-4822Bkjqxic encounter rzbhfgrry32/12/2024 3:30 PM EDT Office Visit [facility] Neurosurgery [address] [place] [address] [facility] NeurosurgeryStart: 08-17-2023 End: 58-12-7397Ffwbhlg encounter /07/2024 2:10 PM EDT Appointment [facility] Radiology CT [address] [place] [address] [facility] Radiology CTStart: 08-16-2023 End: 11-19-6273Zcwhztn encounter shomvmzcj66/06/2024 10:30 AM EDT Office Visit [facility] [address] [place] [address] Vick Domínguez V, MD [address] [place] [address] Yag OD with AHOphthalmologyComment on above:Yag OD with AH Start: 08-14-2023 End: 80-88-7624Mfglivekxk /04/2024 12:32 PM EDT Anesthesia Event [facility] Main OR [address] [place] [id number] Leora Fleming MD [address] [place] [address] [facility] Main ORStart: 08-14-2023 End: 01-20-8965YKXN HOLES, HEMATOMA EVACUATIONBURR HOLES, HEMATOMA EVACUATION Routine scheduled SDH (subdural hematoma) (HCC) 08/14/2023 12:32 PMEDT MetroHealthStart: 08-14-2023 End: 43-85-7217Ustxbspkpb and management of /04/2024 12:32 PM EDT - 08/14/2023 3:22 PM EDT Surgery [facility] Main OR [address] [place] [address] Warren Hoffman MD [address] [place], [place] [address] KATTY HOLES, HEMATOMA EVACUATION [facility] Main ORComment on above:KATTY HOLES, HEMATOMA EVACUATIONStart: 07-31-2023 End: 84-26-8577CD Head WO contrastCT HEAD W/O CONTRAST Imaging Routine Subdural hematoma (HCC) Expected: 07/31/2023, Expires: 07/30/2024[employer] Work Phone: Comment on above:Expected: 07/31/2023, Expires: 07/30/2024Start: 91-37-0658Cscbxp scan of lower limb veinsUS venous duplex LE BI [facility] Hospitaltart: 93-26-6597TO Lower extremity vein - bilateralTriHealth McCullough-Hyde Memorial Hospitaltart: 31-34-8356Chnxcso Directive DiscussionAdvance Directive DiscussionClelakehealth beachwood medical center ClinicStart: 03-12-2023 Behavioral Health ScreeningBehavioral Health ScreeningGalion Hospitaltart: 86-47-1536Fhforclkpn AssessmentDepression AssessmentCleOhioHealth Grove City Methodist Hospitaltart: 32-64-9098Juwha-19 Vaccine ()Covid-19 Vaccine ()[facility]: 42-67-9833Bufryiuke vaccinationInfluenza Vaccine (#1)[facility]: 50-57-7569Bgtbiio ultrasonography of bilateral carotid arteriesUS carotid doppler [facility] Centertart: 73-25-3606UE.doppler Carotid arteries - bilateralTriHealth McCullough-Hyde Memorial Hospitaltart: 06-29-9737IVK, Provider: Angélica Yates, Status: Pen, Time: 10:50 AMFUV, Provider: Angélica Yates, Status: Pen, Time: 10:50 [facility] [address] DO Work Phone: Start: 65-87-5370SGCZWQU DIRECTIVE DISCUSSIONADVANCE DIRECTIVE DISCUSSIONGalion Hospitaltart: 59-10-5598XXJLHGOFAK ASSESSMENT DEPRESSION ASSESSMENTGalion Hospitaltart: 81-69-8283EVR, Provider: Angélica Yates, Status: Pen, Time: 11:30 AMFUV, Provider: Angélica Yates, Status: Pen, Time: 11:30 AM-[facility] 600 DO Work Phone: Start: 12-79-1285Uprfmfbdm vaccinationInfluenza Vaccine (#1)MetroHealthStart: 95-36-1159Cdqhroeix vaccinationINFLUENZA (#1) [facility]: 45-24-5950HDYYUNB DIRECTIVE DISCUSSIONADVANCE DIRECTIVE DISCUSSIONGalion Hospitaltart: 41-06-1417XWPPOHHAUL ASSESSMENTDEPRESSION ASSESSMENTGalion Hospitaltart: 21-14-1168XZNFB-19 VACCINE (3 - Booster for Moderna series)COVID-19 VACCINE (3 - Booster for Moderna series)[facility] Start: 23-59-6819Cbkvfhjfugzw vaccinationMetroHealthStart: 04-04-2020 Pneumococcal Vaccine: 65+ Years (2 of 2 - PCV)Pneumococcal Vaccine: 65+ Years (2 of 2 - PCV)[facility] HealthcareStart: 93-09-7101Amssbxmrgx monitoringCreatinine [facility], KYStart: 28-72-3943Jqubouzxb monitoringPotassium monitoringCleveland Clinic Union Hospital, KYStart: 77-28-2105Qesokp Wellness Visit (AWV)Annual Wellness Visit (AWV)[facility]: 50-58-9180MEJ Vaccine (1 - 1- dose 75+ series)RSV Vaccine (1 - 1-dose 75+ series)[facility]: 49-82-1672IMK vaccine (adult) (1 - 1-dose 75+ series)RSV vaccine (adult) (1 - 1- dose 75+ series)MetroOhiohealth Nelsonville Health CenterStart: 76-71-7766Kauawzorm A (HAV) Vaccine (2 of 3 - Hep A Twinrix risk 3-dose series)Hepatitis A (HAV) Vaccine (2 of 3 - Hep A Twinrix risk 3-dose series)MetroHealthStart: 31-59-0781Eypnrmqlk B vaccination Hepatitis B (HBV) Vaccine (2 of 3 - Hep B Twinrix 3-dose series)MetC[facility] Start: 17-21-6549QJFX DENSITYBONE DENSITYGalion Hospitaltart: 60-61-9699EKAF (modify frequency per FRAX score)DEXA (modify frequency per FRAX score)[facility]: 96-92-8586Raloztxwybsa 65+ years Vaccine (1 of 2 - PCV13) Pneumococcal 65+ years Vaccine (1 of 2 - PCV13)[facility]: 82-80-4936Raospjoqppet vaccinationMetroHealthStart: 92-05-4636TKCJPDUNUTDY: 65+ (1 - PCV)PNEUMOCOCCAL: 65+ (1 - PCV)[facility]: 68-52-7723Pybtipzmg for osteoporosisMetroHealthStart: 31-30-8649Zrxvxy wellness visitAnnual Wellness Visit (G0438)MetroHealthStart: 25-01-1474Gpttjojtp B (HBV) Vaccine (optional start 60+ years)Hepatitis B (HBV) Vaccine (optional start 60+ years)[facility] Start: 02-41-5348JLW Vaccine (1 - 1-dose 60+ series)RSV Vaccine (1 - 1-dose 60+ series)[facility]: 85-58-0418DDU vaccine (optional 60+ years)RSV vaccine (optional 60+ years)MetroHealthStart: 66-23-8297Rnmqnfir (RZV) Vaccine (1 of 2)Shingles (RZV) Vaccine (1 of 2)MetroHealthStart: 63-35-2401Pcfzukbu Vaccine (1 of 2)Shingles Vaccine (1 of 2)[facility], [place]Start: 07-06-1989 SHINGRIX VACCINE (1 of 2)SHINGRIX VACCINE (1 of 2)[facility]: 50-53-3898EHDFBNMZ SCREENDIABETES SCREENGalion Hospitaltart: 07[birth year]06-1958 Hepatitis A (HAV) Vaccine (optional start 19+ years)Hepatitis A (HAV) Vaccine (optional start 19+ years)MetroHealthStart: 84-29-9148Jlase microalbumin profile DTAP,TDAP,TD (1 - Tdap)[facility]: 77-26-4736Rlxnvbk ScreeningAnxiety ScreeningGalion Hospitaltart: 89-96-9580Tgwwegcjqm ScreeningDepression ScreeningGalion Hospitaltart: 78-08-2270ZppgoowthaZgvyyezigyNfweqrwdx Clinic Start: 60-52-3597Zmiznza + diphtheria + acellular pertussis vaccine (product) Tdap BoosterMetroHealthStart: 35-20-8463LHXPT-19 Vaccine (#1)COVID-19 Vaccine (#1)MetroHealthANAEROBIC AND AEROBIC CULTUREANAEROBIC AND AEROBIC CULTURE Microbiology [employer] Label Print 12/15/2018 12:37 AM [place], [place] Bacteria identified in Urine by CultureTHE [facility]OD [facility] Work Phone: Comment on above:When Specimen Available/Needed for 1 Occurrences starting 5Basic metabolic 2000 panelBasic Metabolic Panel Lab Routine Daily until discontinued starting 12/17/2018, 2 completedC[facility], IAComment on above:Daily until discontinued starting 12/17/2018, 2 completedBURR HOLES, HEMATOMA EVACUATIONBURR HOLES, HEMATOMA EVACUATION Routine scheduled SDH (subdural hematoma) (HCC)MetroHealthComprehensive metabolic 2000 panel - Serum or PlasmaCincinnati Children'S Hospital Medical CenterComprehensive metabolic 2000 panel - Serum or [facility] WestCULTURE BLOOD #1 CULTURE BLOOD #1 Microbiology Routine 12/15/2018 12:25 AM EDTrinity Health System [facility] City Medical CenterDAIANACULTURE BLOOD #2CULTURE BLOOD #2 Microbiology Routine 12/15/2018 12:30 AM EDT [facility] CenterDAIANA End: 86-24-3564Mtandxy StoolCulture Stool Microbiology Routine One Time for 1 Occurrences starting 12/18/2018 until 12/18/2018[facility], DAIANAComment on above:One Time for 1 Occurrences starting 12/18/2018 until 12/18/2018 End: 96-89-7507CHND EEG LONGEPIL EEG LONG NEUROLOGY Routine Nonspecific abnormal electroencephalogram (EEG) 1 Occurrences starting 06/21/2023 until 06/20/2024 [facility] Work Phone: Comment on above:1 Occurrences starting 06/21/2023 until 06/20/2024 End: 01-40-0584Chwlg lactoferrinFecal lactoferrin Lab Routine One Time for 1 Occurrences starting 12/18/2018 until 12/18/2018[facility], DAIANAComment on above:One Time for 1 Occurrences starting 12/18/2018 until 12/18/2018HHN TreatmentHHN Treatment Respiratory Care Routine Every 6hr As Needed until discontinued starting 12/17/2018[facility], DAIANAComment on above:Every 6hr As Needed until discontinued starting 12/17/2018Initiate Oxygen Therapy Protocol Initiate Oxygen Therapy Protocol Respiratory Care Routine Daily until discontinued starting 12/14/2018[facility], DAIANAComment on above:Daily until discontinued starting 12/14/2018 End: 08-63-2844WD Brain WO and W contrast IVMRI BRAIN WO/W IVCON Radiology Routine Nontraumatic subarachnoid hemorrhage (HCC) 1 Occurrences starting 07/06/2023 until 08/04/2024[facility] Work Phone: Comment on above:1 Occurrences starting 07/06/2023 until 08/04/2024[facility] EducationCalf [facility] Work Phone: [facility] Work Phone: End: 58-15-9500Gyiyl ostomy eval and treatWound ostomy eval and treat Wound Ostomy Routine One Time for 1 Occurrences starting 12/15/2018 until 12/15/2018 [facility], KYComment on above:One Time for 1 Occurrences starting 12/15/2018 until 12/15/2018[facility] Immunizations Immunization DateImmunizationNotesCare FpustucgGbpijqzs02-46-8577limvois toxoid, reduced diphtheria toxoid, and acellular pertussis vaccine, adsorbedHasan AMIR [facility]12-01-2021influenza, injectable, quadrivalent, contains preservativeSeth Magayl Other [place] [employer] Other 1109148-60-8328wmzihfcha, injectable, quadrivalent, preservative freeDO Hardeep Magaly Work Phone: [facility]12-01-2021influenza virus vaccine, unspecified formulationEthkevin Hudson 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 Work Phone: [phone]-YjoekThe [facility] Digestive Ntwhhb13-10-2509 COVID-19 ModernaSeth Magaly Other [facility] HospitalComment on above:Reason for Medication: Other (see comment)Reason for Medication: Other (see comment) 66-03-3121DCCGH-19 ModernaSeth Magaly Other [facility] HospitalComment on above:Reason for Medication: Other (see comment)Reason for Medication: Other (see comment) 72-37-7225wgxlyoany virus vaccine, unspecified formulationMuhammad Sarmini 280-0448Ceqlvl-RadhgThe [facility] Digestive Zqpvlh59-79-7711 Seasonal trivalent influenza vaccine, adjuvanted, preservative freeSeth M Magaly Work Phone: [phone]-ZjeazOwatonna Hospital 600 DO Work Phone: [phone]cqohj, seasonal, injectableJeffrey Buehrer Other [facility]01-24-2020 pneumococcal polysaccharide vaccine, 23 valentJeffrey Buehrer Other [facility]01-24-2020influenza, injectable, quadrivalent, contains preservativePatient ObjectionJeffrey Buehrer Other [place] [employer] Other 1731195-02-7016rbthumbxw, injectable, quadrivalent, preservative freeShowEast [facility], JD46-21-7638butjeiite quadrivalent split vaccine (FLUZONE;FLUARIX;FLULAVAL;AFLURIA) injection 0.5 mL [facility], PI75-32-8799iqwfohybd virus vaccine, unspecified formulationTo [facility] HealthComment on above:Result Comment: 2024-08-28: VIS DATE: 992402-67-0040jekbkuxoq, injectable, quadrivalent, contains preservativeJeffrey Buehrer Other [place] [employer] Other 1751077-76-8539ktvhpwopa virus vaccine, unspecified formulationMuhamrebecca Lulúlori 243-3812Xcqmlp-DsdteSelect Medical Specialty Hospital [facility]10-11-2018 influenza, injectable, quadrivalent, preservative Jean Marie Mckenzie Work Phone: [facility]04-09-2018tetanus toxoid, reduced diphtheria toxoid, and acellular pertussis vaccine, adsorbed Royce Buehrer Other [facility]10-16-2017influenza, injectable, quadrivalent, contains preservativeJeffrey Buehrer Other [place] [employer] Other 1397284-03-6146dlzleocmy virus vaccine, unspecified formulationMuhammad Sarmini 653-2682Obzaih-WawveThe [facility] Digestive Fahtcx77-74-8423 influenza, injectable, quadrivalent, preservative freeDO Hardeep Magaly Work Phone: [facility]10-10-2016influenza, injectable, quadrivalent, contains preservativeRoyce Douglas Other [facility] [employer]i Other 1119027-78-8673kakkmijbq virus vaccine, unspecified formulationMuhammad Sarmini 009-3237Cwwtnz-GfzphSelect Medical Specialty Hospital [facility]10-10-2016 influenza, injectable, quadrivalent, preservative freeDO Hardeep Magaly Work Phone: [facility]10-26-2015influenza virus vaccine, unspecified formulationMuhammad Sarmini 283-4837Zyttyt-OypigSelect Medical Specialty Hospital - [facility]10-26-2015 influenza, injectable, quadrivalent, contains preservativeSeth M Magaly Work Phone: [phone]-KmyqpOwatonna Hospital 600 DO Work Phone: [phone]tyk conjugate vaccine, 13 valent Royce Douglas Other [facility]11-04-2014influenza virus vaccine, unspecified formulationMuhammad Sarmini 797-9955Wxuavu-HkbniSelect Medical Specialty Hospital [facility]11-04-2014 influenza, injectable, quadrivalent, contains preservativeSeth M Magaly Work Phone: [phone]-SqqveOwatonna Hospital 600 DO Work Phone: [phone] toxoid, reduced diphtheria toxoid, and acellular pertussis vaccine, adsorbedSeth M Magaly Work Phone: [phone]-YsbfqAlomere Health Hospital 600 DO Work Phone: [phone] virus vaccine, unspecified formulationMuhammad Sarmini 228-3745Tflhvd-EgpekHarrison Community Hospital Ycxthb25-54-2256 influenza, seasonal, injectableSeth M Magaly Work Phone: [phone]-KgemoOlmsted Medical Center 600 DO Work Phone: [phone] toxoid, reduced diphtheria toxoid, and acellular pertussis vaccine, adsorbedDavid Scot VICTOR Work Phone: [phone]oLlmtdq39-86-7051fxxpdbs toxoid, reduced diphtheria toxoid, and acellular pertussis vaccine, adsorbedHasan YAYAR [facility] HospitalComment on above:Result Comment: left deltoidResult Comment: left ckicgzp19-93-5121hmahiwqjf A and hepatitis B vaccineSeth M Magaly Work Phone: [phone]-JjpxgThe [facility] Digestive Vvgsnu98-23-7792 tetanus toxoid, adsorbedSeth M Magaly Work Phone: [phone]-KhlhuOlmsted Medical Center 600 DO Work Phone: NEGATED: Highlighted row has not occurred!04-04-2019 influenza, injectable, quadrivalent, contains preservativePatient ObjectionSeth Magaly Other [place] [employer] Other Payers DatePayer CategoryPayerPolicy [id number] IndemnityCOMMERCIAL INSURANCE - OTHER Member Subscriber Plan / Payer (Effective 2020-Present) Name: Carly Marcelino Relation to Subscriber: Self Name: Carly Marcelino Payer ID: Not on file Group ID: Not on file Type: CareDox Address: [place] [id number] 65-15-9202Aeyhjxu Health [id number] [id number]n09-07-2019MedicareMEDICARE MEDICARE PART A AND B xxxxxxxxxxx 2018-Present [phone] [address] [place], [id number] [id number]505Qzleros Health InsuranceHUPROMEDICA [facility] MEDICARE SUPP xxxxxxxxx 2014-Present [address] [address] [place] [address]eepuwwvyu [id number]10-87-0312Sitaisg Health [id number]e [id number]Medicare FFSMEDICARE [id number] 07-26-3634Mcwybln Health [id number] 04.27.840.3.213461.4957-27-1940 [id number] 04.27.840.1.922019.3.57[id number] 2.16.840.1.893838.3.57[id number] 2.16.840.1.091373.3.57[id number] 2.16840.1.342915.3.57[id number] 2.16.840.1.836318.3.57[id number] 2.16840.1.508164.3.57[id number] 2.840.1.346691.3.57[id number] 2.840.1.274389.3.57[id number] 2.16840.1.485685.3.57[id number] 2.16840.1.603907.3.57[id number] 2.840.1.161924.3.579.2.93363-51-0867Psfxpqm184305614 2.16840.1.422454.3.579.2.90089-78-6379Sjshenh388533281 2.16840.1.469192.3.579.2.43120-68-4674Unxegpc181464254 2.16840.1.796994.3.579.2.24354-75-0999Yrymphq120065736 2.16840.1.307324.3.579.2.08676-62-4796Wdabeeu44598408 2.16.840.1.490992.3.579.2.107242-51-7453Iypumze21785837 2.16840.1.968064.3.579.2.638669-54-0250Ljqpxwz39237895 2.16840.1.379056.3.579.2.204795-11-1025Cuaqjmy62689163 2.840.1.037482.3.579.2.01139-97-9330Npxdrbk48340535 2.840.1.759647.3.579.2.52385-37-5658Xehogkg32866544 2.840.1.221894.3.579.2.20866-45-5195Okcwxnp14931534 2.840.1.477268.3.579.2.94354-56-4595Wacajhw17626701 2.840.1.845650.3.579.2.52907-63-1054Pxoinom80899356 2.840.1.382532.3.579.2.89688-17-6268Jsfufub13220937 2.0.1.818562.3.579.2.48164-49-7256Xyrdbow07830929 2.840.1.910944.3.579.2.44674-68-5954Vjcltni18476107 2.840.1.606225.3.579.2.35827-62-9870Nhdlaor84934566 2.840.1.388308.3.579.2.63315-55-6569Rmxkaob23235087 2.840.1.315695.3.579.2.73256-87-2981Ykngmgd81631521 2.16.840.1.321733.3.579.2.01265-67-9874Ytqyebs32967455 2.16.840.1.629367.3.579.2.47285-53-0980Lzhodwz00860778 2.16.840.1.216270.3.579.2.00926-22-0739Fluxhts63963685 2.16840.1.719649.3.579.2.05766-06-1579Grkoauj29530120 2.16840.1.141522.3.579.2.53196-70-2868Frjonvg92584844 2.840.1.148808.3.579.2.48830-40-1699Cscltar30560315 2.840.1.570942.3.579.2.20332-98-3789Ysafben42012990 2.16840.1.376332.3.579.2.71111-54-0294Zizuojq20686988 2.840.1.690387.3.579.2.18035-66-8256Nhuvqrt77293970 2.840.1.954819.3.579.2.31122-20-9605Cwfymva30722918 2.840.1.811561.3.579.2.42595-74-4171Wcqeuuh23629735 2.16840.1.686964.3.579.2.91006-90-2305Wcnbhsn36478846 2.16840.1.336306.3.579.2.10371-85-2777Rorwefo86277192 2.16.840.1.116019.3.579.2.47805-07-1458Drbtfbx08573653 2.16840.1.330610.3.579.2.91340-53-0594Wdpjmnc30509168 2.16.840.1.907863.3.579.2.93666-99-1414Jyqlyew17306630 2.16.840.1.911965.3.579.2.13193-69-9434Lopuiyp84420496 2.16.840.1.416030.3.579.2.19623-84-0145Nnrftvt36912776 2.16.840.1.392950.3.579.2.98934-79-4818Hxpifkw98586780 2.16.840.1.608541.3.579.2.79662-67-0853Janoqxw52491390 2.16840.1.585846.3.579.2.41967-37-1921Akwqbdy97682427 2.16840.1.632627.3.579.2.57902-33-1488Bkolzug38935511 2.16.840.1.019570.3.579.2.05861-87-1747Atwdqzg76896090 2.16840.1.227702.3.579.2.09593-82-9804Etvtnyb59246717 2.16840.1.760439.3.579.2.48471-95-4219Igiuakr35986937 2.16.840.1.373158.3.579.2.58687-99-4969Vhmrvgo96274489 2.16.840.1.219036.3.579.2.73452-17-0167Haguuog97075189 2.16.840.1.698581.3.579.2.00908-07-4817Recbywv12387606 2.16840.1.081308.3.579.2.46325-80-8073Mzcfuyk74977341 2.16.840.1.933809.3.579.2.06307-55-4669Ythzckm75719072 2.16.840.1.712645.3.579.2.67184-95-8148Ieajqwl46780016 2.16840.1.206270.3.579.2.90540-02-0961Ebyueon95929742 2.16840.1.829073.3.579.2.88491-83-8592Ldhlwdn83987076 2.840.1.982563.3.579.2.28670-48-0638Eudzmnz084030622 2.840.1.796568.3.579.2.12749-20-4330Irfocbd193222081 2.840.1.146710.3.579.2.82165-25-3429Jggidtv136298536 2.840.1.404810.3.579.2.87477-63-2941Quqvfsk462640813 2.840.1.470623.3.579.2.92494-65-0541Pznkxau475124780 2.840.1.935790.3.579.2.76967-24-2869Agmuucv171804108 2.840.1.979591.3.579.2.67664-34-2494Tsfriph68943315 2.840.1.843427.3.579.2.558463-73-5888Rqcxhwl47459012 2.16840.1.424486.3.579.2.365457-90-9166Pdwpkwk5273877 2.840.1.419982.3.579.2.929986-71-6614Jedcyqg3837884 2.16.840.1.793049.3.579.2.604875-58-8401Bfffolf6934693 2.16.840.1.128894.3.579.2.961263-41-7096Mjjsnjk48626799 2.16840.1.087098.3.579.2.81758-74-2663Xswuroj34280043 2.16840.1.340414.3.579.2.70555-22-1996Ywonjkz79743356 2.16840.1.191356.3.579.2.55377-18-0435Yiodlzu34290624 2.840.1.409708.3.579.2.61689-28-7601Hjjybgq42114525 2.16840.1.571128.3.579.2.24814-04-1347Rwvcndi17818297 2.16840.1.051865.3.579.2.66718-69-0546Fmymben27323923 2.16840.1.137900.3.579.2.28046-35-4333Frzsbum56186659 2.16840.1.144050.3.579.2.53049-61-9331Kyayghw682660709 2.16840.1.158480.3.579.2.73737-59-1179Zinsixk404402232 2.16840.1.197467.3.579.2.52722-64-7842Ndnynht176378674 2.16840.1.544198.3.579.2.45000-09-4992Hglzgmj899440457 2.16840.1.591464.3.579.2.75940-87-6666Zedwgmg057953322 2..840.1.364235.3.579.2.77615-61-3978Tpohwyk653350201 2..840.1.360011.3.579.2.92060-27-9197Ynavbjx187152726 2..840.1.31[id number]-paySelf Pay [id number]/HFA/FAP [id number] Social History DateTypeDetailFacilityStart: 12-15-2018 End: 05-05-5346Mpmppgd smoking status NHISFormer smokerCincinnati Children'S Hospital Medical CenterComment on above:Pt denies smoking at this time, former smoker 10+ years agoPt denies smoking at this time, former smoker 10+ years agoStart: 03-12-1966 End: 07-38-3842Htykuet of tobacco useCurrent [facility]: 74-89-7459Jsy Assigned At [facility] HospitalNot on fileSamaritan [facility]: 1940 [facility]2020 End: 37-39-9060Iuz Assigned At [facility] Listen Edition Other Tobacco smoking statusFormer smokeless tobacco user, quit more than 30 days agoGuernsey Memorial HospitalComment on above:Pt denies smoking at this time, former smoker 10+ years agoStart: 02-13-2020 End: 26-47-0789Zzufyn alcohol useSocial alcohol useMercy Health Tiffin HospitalComment on above:SODA OCCASIONAL;QUIT AT 36 YRS OLD 1/2 PPD;Start: 03-12-1966 End: 27-20-1106Lxgjnvr of tobacco useCigarette SmokerGalion Hospitaltart: 02-13-2020 End: 01-62-0132Vpygamr use and exposureSmokeless tobacco non-userGalion Hospitaltart: 12-21-2020 End: 53-98-4100Alfxvqw intakeCurrent drinker of alcohol (finding)[facility]: 54-76-7354Janqyvs SDOH Alcohol Mdeobmlfk3Zzcymemqd ClinicStart: 83-97-6310Ustjuwp SDOH Alcohol Std Jspqxz7Brxkitmbu ClinicStart: 09-11-2011 Alcohol Commentsocially wine, beerSelect Medical [facility], [facility] smoking status NHIS Tobacco smoking consumption unknownMetCleveland Clinic [facility] Work Phone: Start: 41-95-8112Gmmrcnn smoking status NHISNever smoked tobacco (finding)[facility] CenterHow often to you have a drink containing alcohol?Monthly or lessMercy Health Tiffin HospitalHow many standard drinks containing alcohol do you have on a typical day?1 or 2Cleveland ClinicHow often do you have 6 or more drinks on 1 occasion?NeverMercy Health Tiffin HospitalHas the [employer], [place], or water [employer] threatened to shut off services in your home in past 12MoNoClgrand lake joint township district memorial hospital Clinic(I/We) worried whether (my/our) food would run out before (I/we) got money to buy more.Never trueGalion Hospitaltart: 56-48-0069Sztxuxu Commentoccasional beer when mowing grass on hot dayGalion Hospitaltart: 72-03-8987Bqeekkr Vyvpodn9332DvvbcNkcymbBamwkbrXxnhds - [facility] Comment on above:deniesTobacco smoking statusGuernsey Memorial Hospital Start: 05-30-2018 End: 83-33-2687UfrChigtu (finding)[facility] Hospitalt[facility]: 05-29-2023 End: 17-70-1551Uodizerni beverage intakeLifetime non-drinker (finding)[facility] Procedure CodeEquipment CodeEquipment Original TextEquipment IdentifierDatesPCI of RCA Unknown 11/24/21 Non Biological Right Coronary ArteryFDAStart: 11-24-2021 Comment on above:4.0k68YXJEgrrn: 53-53-1877Gojbhjr on above:4.3g71EYE of RCA Unknown 11/24/21 Non Biological Right Coronary ArteryFDAStart: 92-98-1367Qixvhzc on above:4.6y18KIKFtmjp: 44-15-9036Ktuofcq on above:4.9i33BVA of RCA Unknown 11/24/21 Non Biological Right Coronary ArteryFDAStart: 34-10-5306Ekowbbw on above:4.5z46ULHCjzml: 72-56-9529Abdewlt on above:4.9m30HDT of RCA Unknown 11/24/21 Non Biological Right Coronary ArteryFDAStart: 03-20-3349Upkxyzt on above:4.9l80GIQNknrf: 82-74-8559Xmkcvjh on above:4.1o58INI of RCA Unknown 11/24/21 Non Biological Right Coronary ArteryFDAStart: 11-76-8288Rnirojf on above:4.9k94GVMWgdiu: 60-79-2738Rfwvzsh on above:4.6r00Umyw Iol 0d +21.5 Enrike Uv Abs - [id number]_pelWsojl: 16-70-0894Dhgouwt on above:Description: -0.46 PCI of RCA Unknown 11/24/21 Non Biological Right Coronary ArteryFDAStart: 47-79-1800Hnpbqtg on above:4.7k41USHMzgbp: 76-88-7885Vnyfhti on above:4.1j12WJL of RCA Unknown 11/24/21 Non Biological Right Coronary ArteryFDAStart: 11-24-2021 Comment on above:4.6s68IWTRfxex: 84-14-9241Ukkcyiv on above:4.5d83TTB of RCA Unknown 11/24/21 Non Biological Right Coronary ArteryFDAStart: 51-62-0102Tsnvumy on above:4.1q97CFGKyotp: 58-48-5570Rezclcf on above:4.0m12IXT of RCA Unknown 11/24/21 Non Biological Right Coronary ArteryFDAStart: 57-24-3663Axkklml on above:4.2d64PSLFgymo: 18-58-6427Aouerdh on above:4.1u76ZGL of RCA Unknown 11/24/21 Non Biological Right Coronary ArteryFDAStart: 67-66-0760Cbzoijt on above:4.4i79KRVVcvli: 29-82-0170Llopccw on above:4.3l57XZG of RCA Unknown 11/24/21 Non Biological Right Coronary ArteryFDAStart: 93-99-2584Ckypxla on above:4.2z40WNZPhxnl: 12-00-7369Dkziqfg on above:4.0q62BLX of RCA Unknown 11/24/21 Non Biological Right Coronary ArteryFDAStart: 92-41-4923Uvthvdb on above:4.4e95HKLBypay: 44-24-1709Obbdtku on above:4.6d29OXW of RCA Unknown 11/24/21 Non Biological Right Coronary ArteryFDAStart: 70-24-8886Ilzvqbn on above:4.5b05WJCDsvzf: 61-11-3003Opwdgzk on above:4.9v05RYG of RCA Unknown 11/24/21 Non Biological Right Coronary ArteryFDAStart: 09-12-4273Oimzyop on above:4.0g45RIJSqkpq: 50-63-6550Tpommed on above:4.5h49BPQ of RCA Unknown 11/24/21 Non Biological Right Coronary ArteryFDAStart: 32-19-0105Oopokoc on above:4.9n93JOLMzsjd: 11-19-4322Afsbofl on above:4.2h02DTV of RCA Unknown 11/24/21 Non Biological Right Coronary ArteryFDAStart: 37-17-2926Kjsgoty on above:4.9r55PRWUszbc: 10-48-7335Jdgntph on above:4.7b67GRI of RCA Unknown 11/24/21 Non Biological Right Coronary ArteryFDAStart: 42-75-1131Zgmyujq on above:4.3h59RQPUboew: 03-64-3367Nwoglan on above:4.1u75RYI of RCA Unknown 11/24/21 Non Biological Right Coronary ArteryFDAStart: 40-13-0897Auuwoda on above:4.9i62GVJRmezn: 36-69-6800Lmqiyzk on above:4.7x87IBG of RCA Unknown 11/24/21 Non Biological Right Coronary ArteryFDAStart: 84-09-9366Jjbjssb on above:4.9a12NXUDxect: 26-72-9721Zrxbnsz on above:4.0j79THQ of RCA Unknown 11/24/21 Non Biological Right Coronary ArteryFDAStart: 50-57-0689Wwjxehm on above:4.5e54SSQNfhvf: 85-81-0407Thghffy on above:4.5j05DMR of RCA Unknown 11/24/21 Non Biological Right Coronary ArteryFDAStart: 44-29-1421Rkuribe on above:4.0d70SCNBnbqr: 87-50-7975Uekmvwy on above:4.8r03XOC of RCA Unknown 11/24/21 Non Biological Right Coronary ArteryFDAStart: 32-24-4022Xmkjaec on above:4.0m50VLYZqzyw: 72-99-4160Atyuojm on above:4.1t93PQP of RCA Unknown 11/24/21 Non Biological Right Coronary ArteryFDAStart: 69-23-7957Ickrxoo on above:4.6c25ETMEtsng: 80-92-7371Cbknzrg on above:4.7u45VFE of RCA Unknown 11/24/21 Non Biological Right Coronary ArteryFDAStart: 39-25-5198Dwokqhr on above:4.6x06ZPXVycsx: 52-11-8827Fozlhfb on above:4.7h85YRO of RCA Unknown 11/24/21 Non Biological Right Coronary ArteryFDAStart: 91-16-7313Qdtqdek on above:4.4o48CBTEdacd: 75-08-8154Wmdnond on above:4.8d46TCC of RCA Unknown 11/24/21 Non Biological Right Coronary ArteryFDAStart: 71-57-5501Dgzljmh on above:4.4a98OITPujaa: 63-93-2291Uduoeeg on above:4.4d94HPH of RCA Unknown 11/24/21 Non Biological Right Coronary ArteryFDAStart: 22-63-1129Lqhsaid on above:4.3v66NQMHccoo: 93-77-9529Jnaahxu on above:4.1m61IEA of RCA Unknown 11/24/21 Non Biological Right Coronary ArteryFDAStart: 69-75-5094Dsiqrly on above:4.4z76NHVAznet: 03-69-6972Valhkhh on above:4.6e21Kqej Embl 3-2mm Trnd Mciol Ea1 Mwce-18s-3/7-Hmgpvud-35 - [id number]_kapTlfvs: 67-59-0283Qlbx Embl 3-2mm Trnd Mciol Ea1 Mwce-18s-3/4-Icgemft-48 - [id number]_gndBmtqc: 36-65-3696Bavm Embl 3-2mm Trnd Mciol Ea1 Mwce-18s-3/7-Kwdsvgh-55 - [id number]_impStart: 17-75-9317AJJ of RCA Unknown 11/24/21 Non Biological Right Coronary ArteryFDAStart: 02-01-2414Zowfryx on above:4.0e51EKVYyitw: 11-24-2021 Comment on above:4.6m41TUY of RCA Unknown 11/24/21 Non Biological Right Coronary ArteryFDAStart: 59-63-1550Tkygwnb on above:4.3d51UUXNrwkh: 22-93-6261Bcgxbut on above:4.2u72RXP of RCA Unknown 11/24/21 Non Biological Right Coronary ArteryFDA Start: 61-20-1900Pidmgif on above:4.1s66LTWSvgzx: 18-38-0577Cnrpyou on above: 4.9s57EHO of RCA Unknown 11/24/21 Non Biological Right Coronary ArteryFDAStart: 14-77-5442Kibuqtn on above:4.3c78CYLQybpk: 92-17-2299Mwtodoo on above:4.3m79RTA of RCA Unknown 11/24/21 Non Biological Right Coronary ArteryFDAStart: 11-24-2021 Comment on above:4.2t19RGQItbod: 01-25-0565Yijgcdy on above:4.5u81TIS of RCA Unknown 11/24/21 Non Biological Right Coronary ArteryFDAStart: 52-89-3662Gfxwmjs on above:4.5h50VRYRppkc: 63-12-1655Jvouumo on above:4.2u14MSB of RCA Unknown 11/24/21 Non Biological Right Coronary ArteryFDAStart: 49-11-0854Usdfkgi on above:4.7h47NZZXmtcb: 37-46-3707Xehbhmd on above:4.1r64NRL of RCA Unknown 11/24/21 Non Biological Right Coronary ArteryFDAStart: 78-34-6098Cgcoenz on above:4.3h28DEAXollp: 90-23-7628Uyfuxsd on above:4.8u77LGH of RCA Unknown 11/24/21 Non Biological Right Coronary ArteryFDAStart: 53-91-1081Poktwjh on above:4.5d91ZXJKgree: 54-92-5065Cwafdib on above:4.4o20IMI of RCA Unknown 11/24/21 Non Biological Right Coronary ArteryFDAStart: 00-10-3228Vccifvo on above:4.1g73NJBGqfzf: 54-30-5273Gjlqfyz on above:4.0f45VAS of RCA Unknown 11/24/21 Non Biological Right Coronary ArteryFDAStart: 26-94-3404Egdlffy on above:4.1q45ZLUZdsfj: 47-17-9656Itjuzan on above:4.4m78SRH of RCA Unknown 11/24/21 Non Biological Right Coronary ArteryFDAStart: 07-27-8989Qcgjipa on above:4.1k53FYQXivve: 56-30-2201Mefzoaa on above:4.7p29VQX of RCA Unknown 11/24/21 Non Biological Right Coronary ArteryFDAStart: 77-24-2214Qqkllkd on above:4.0n23IHMEgksg: 10-58-1958Iodvzao on above:4.2k54NHO of RCA Unknown 11/24/21 Non Biological Right Coronary ArteryFDAStart: 96-94-3355Alnjrjt on above:4.7r02ZGBWstnb: 90-02-0778Xoskepk on above:4.7u48JLJ of RCA Unknown 11/24/21 Non Biological Right Coronary ArteryFDAStart: 80-24-2424Drxumdv on above:4.3t83GSUWrpqp: 40-61-2462Jocdaaa on above:4.0x15 Goals DatePatient GoalDesired Activity/State Functional Status JwglKpbsnnhfloDtpczhAegkhdzm66-32-8056Pxseokajrg StatusN/[facility]01-31-2025Functional StatusN/[facility]12-29-2024 Functional StatusN/[facility]08-06-2024Functional StatusYes [facility]08-06-2024Functional StatusGu[facility]07-29-2024Functional StatusN/[facility]07-24-2024 Functional StatusN/[facility]07-24-2024Functional Status [facility]06-20-2024Are you deaf, or do you have serious difficulty hearingNo 08/30/2023 3:08 PM Kymberly Barton APRN-CNP No [facility] Work Phone: [phone]) [phone] you blind, or do you have serious difficulty seeing, even when wearing glassesNo 08/30/2023 3:08 PM EDT Kymberly Cabrera APRN-CNP AuVyrttVtqona17-94-2152Gj you have serious difficulty walking or climbing stairsNo 08/30/2023 3:08 PM GUANAKITOT Kymberly Cabrera APRN-CNP [facility] 37-78-9682Xd you have difficulty dressing or bathingNo 08/30/2023 3:08 PM Kymberly Barton APRN-CNP VePhmfcElwqbl81-20-7520Ivbavzf of a physical, mental, or emotional condition, do you have difficulty doing errands alone such as visiting a physician's office or shoppingNo 08/30/2023 3:08 PM EDT Kymberly Cabrera APRN-CNP CyUaahhTfrepb29-51-1093Vpyttbbnyp StatusN/[facility]05-19-2024Functional StatusN/[facility]05-03-2024 Functional StatusN/[facility]04-29-2024Functional StatusNo [facility]04-28-2024Functional StatusGu[facility]04-15-2024Functional StatusN/[facility]04-11-2024 Functional StatusN/[facility]04-08-2024Functional StatusN/A [facility]04-07-2024Functional StatusN/[facility]04-06-2024Functional StatusN/[facility] 28-89-5887Jhfuokzgck StatusN/[facility]03-29-2024Functional StatusN/[facility]02-22-2024Functional StatusN/[facility]02-09-2024Functional StatusN/[facility] 61-47-3565Ihropjjrjv StatusN/[facility]05-23-2023Functional StatusGu[facility]04-18-2023Functional StatusNo[facility]04-18-2023Functional StatusGu[facility] Hospital11-24-2022 Functional StatusN/[facility]10-06-2022Functional StatusN/A [facility]10-06-2022Functional StatusGu[facility]10-03-2022Functional StatusNo[facility]10-02-2022 Functional StatusGu[facility] Hospital09-21-2022Functional StatusNo [facility]09-21-2022Functional StatusGu[facility] Hospital09-14-2022N/[facility]09-14-2022[facility] Mental Status XfbbGllhgbzsqaQmvnaaQfuuatcz25-01-3189Xhuhebw of a physical, mental, or emotional condition, do you have serious difficulty concentrating, remembering, or making decisionsNo 08/30/2023 3:08 PM EDT Kymberly Cabrera APRN-MANUFACTURERS REPRESENTATIVE No [facility] Clinical Notes 12-13-2020 to 01-12-2025 Note Date & DknlGihxRhghfltw74-78-0267 Telephone encounter Note* Telephone Encounter - Adalberto Baker MD - 01/12/2025 4:38 PM EST Call to ED requesting electric Rx for cephalexin. Did not receive at recent ED visit. Pt with some dark urine, otherwise doing well. Kunz in place with plan for urology follow up tomorrow. Sent to pharmacy of choice EjnyoMmliwq49-98-5110 Miscellaneous Notes* Telephone Encounter - Adalberto Baker MD - 01/12/2025 4:38 PM EST Call to ED requesting electric Rx for cephalexin. Did not receive at recent ED visit. Pt with some dark urine, otherwise doing well. Kunz in place with plan for urology follow up tomorrow. Sent to pharmacy of choice documented in this myxbfrwwpHfngyPvtakc01-83-7743 Physician Emergency department Note* Rebecca Wood MD - 01/11/2025 11:44 AM EST Sign-out [...] return precautions. Discharged in a stable condition. NfywmTqkfyy94-00-2735 Emergency department Note* Rebecca Wood MD - 01/11/2025 11:44 AM EST Sign-out [...] return precautions. Discharged in a stable condition. documented in this [id number] Hospital Discharge instructions* Discharge Instructions* Rebecca Wood MD - 01/11/2025 6:08 AM EST Please [...] Everywhere. * Urinary tract infections in adults (Haitian) * Urinary Incontinence, Adult ED (Haitian) documented in this r[id number] Consult note* Janny Martinez MD - 01/11/2025 1:20 AM EDT Orthopaedic Surgery Consult [facility] Requesting Provider / Service: ED CC: urinary retention HPI: Carly Marcelino is a 84 year old female w a past medical history of CAD, HF, and chronic T12 compressionwho [facility] [...] data in the 24 hours ending 01/10/25 1848 Physical Exam: There were no vitals taken [...] Dr. Martinez in 2-4 weeks, please call [phone] to schedule - Pain control per ED - Dispo per ED This consult was seen and staffed within 30 minutes of the initial consult. --- Arlene Oviedo MD Orthopaedic Surgery, PGY 2 Teaching Physician Note: I reviewed the PA/MANUFACTURERS REPRESENTATIVE/resident's documentation and discussed the patient with the PA/MANUFACTURERS REPRESENTATIVE/resident. I agree with the PA/MANUFACTURERS REPRESENTATIVE/resident's medical decision making as documented in the PA/MANUFACTURERS REPRESENTATIVE/resident's note. Janny Martinez MD [place] Department of Neurological Surgery [id number] [place], [address] [1] No past medical history on file. [2] Past Surgical History: Procedure Laterality Date KATTY [...] mouth every 12 hours., Disp: , Rfl: [facility] Work Phone: 1(102) 237-459711-02-2025 Consult note* Janny Martinez MD - 01/11/2025 1:20 AM EDT Orthopaedic Surgery Consult [facility] Requesting Provider / Service: ED CC: urinary retention HPI: Carly Marcelino is a 84 year old female w a past medical history of CAD, HF, and chronic T12 compressionwho [facility] [...] data in the 24 hours ending 01/10/25 4126 Physical Exam: There were no vitals taken [...] Dr. Martinez in 2-4 weeks, please call [phone] to schedule - Pain control per ED - Dispo per ED This consult was seen and staffed within 30 minutes of the initial consult. --- Arlene Oviedo MD Orthopaedic Surgery, PGY 2 Teaching Physician Note: I reviewed the PA/MANUFACTURERS REPRESENTATIVE/resident's documentation and discussed the patient with the PA/MANUFACTURERS REPRESENTATIVE/resident. I agree with the PA/MANUFACTURERS REPRESENTATIVE/resident's medical decision making as documented in the PA/MANUFACTURERS REPRESENTATIVE/resident's note. Janny Martinez MD [place] Department of Neurological Surgery [id number] [place], [address] [1] No past medical history on file. [2] Past Surgical History: Procedure Laterality Date KATTY [...] hours., Disp: , Rfl: documented in this [id number] Telephone encounter Note* Telephone Encounter - Janny Martinez MD - 01/10/2025 8:10 PM EDT Discussed Ms. Marcelino's care with the treating provider at [facility] Dr. Wilman Watson on 01/10/2025t 20:10. [...] extremities. The physical examination performed by the [facility] providers did not note any lower extremity weakness, numbness, with essentially normal rectal tone, but did note a PVR of 800 mL for which they placed a Kunz catheter. 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 In terms of her laboratory investigations, she did not have any significant elevated white blood cell count or evidence on her urinalysis of findings consistent with urinary tract infection. I reviewed her MR T and MR L-spine that were performed at [facility] which demonstrate thoracic and lumbar spondylosis [...] by an ED to ED transfer from [facility] to [facility]. Dr. Watson advised that he would discuss with Ms. Marcelino how she wished to proceed, and would contact the [facility] transfer center to finalize the plan. Janny Martinez MD [place] Department of Neurological Surgery [id number] [place], [address] [facility] Work Phone: [phone]) 479-103411-01-2025 Miscellaneous Notes* Telephone Encounter - Janny Martinez MD - 01/10/2025 8:10 PM EDT Discussed Ms. Marcelino's care with the treating provider at [facility] Dr. Wilman Watson on 01/10/2025t 20:10. [...] extremities. The physical examination performed by the [facility] providers did not note any lower extremity weakness, numbness, with essentially normal rectal tone, but did note a PVR of 800 mL for which they placed a Kunz catheter. 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 In terms of her laboratory investigations, she did not have any significant elevated white blood cell count or evidence on her urinalysis of findings consistent with urinary tract infection. I reviewed her MR T and MR L-spine that were performed at [facility] which demonstrate thoracic and lumbar spondylosis [...] by an ED to ED transfer from [facility] to [facility]. Dr. Watson advised that he would discuss with Ms. Marcelino how she wished to proceed, and would contact the [facility] transfer center to finalize the plan. Janny Martinez MD [place] Department of Neurological Surgery [id number] [place], [address] documented in this [id number] History of Present illness Narrative* Aniket Jhaveri DPM - 11/21/2024 1:15 PM EDT Subjective Patient ID: Carly Marcelino is a 84 y.o. female who presents for toenail care. HPI left heel callus tender, toes some Diabetic/Routine Nail [...] on file. Objective Foot Exam General Examination: awake, aware of surroundings, in no acute distress. [...] Thick. Yeloow, Crumbling 4mm 4Long , Thick.yellow,crumbly 3mm 5Long , Thick. Yellow, crumbling Nail Pathology: Left Foot: 1 (great toe)Long, Thick, Crumbly, Deformed, Discolored, Brittle, Dystrophic 4mm. 2Long, Thick, Crumbly, Deformed, Discolored, Brittle, Dystrophic. 3mm 3Long , Thick.yellow, crumbling 4Long , Thick.yellow 5Long , Thick. Yellow, crumbling 3mm Modifier: -Q9. paresthesias Assessment/Plan neuropathy, callus, mycotic nails- Nails: all thick and dystrophic nails debrided of all affected and loose material Callus: all hyperkeratotic tissue debrided to left heel sharply with a #15 blade Padding added left shoe- inlays sugg documented in this encounterSSM [id number] Hospital Discharge instructions Patient Education 10/27/2024 14:11:37 Overactive Bladder, Adult Overactive Bladder, Adult Overactive bladder is a condition in which a person has a sudden and frequent need to urinate. A person might also leak urine if he or she cannot get to the bathroom fast enough (urinary incontinence). Sometimes, symptoms can interfere with work or social activities. What are the causes? Overactive bladder is associated with poor nerve signals between your bladder and your brain. Your bladder may get the signal to empty before it is full. You may also have very sensitive muscles thatmake your bladder squeeze too soon. This condition may also be caused by other factors, such as: Medical conditions: ?Urinary tract infection. ?Infection of nearby tissues. ?Prostate enlargement. ?Bladder stones, inflammation, or tumors. ?Diabetes. ?Muscle or nerve weakness, especially from these conditions: ?A spinal cord injury. ?Stroke. ?Multiple sclerosis. ?Parkinson's disease. Other causes: ?Surgery on the uterus or urethra. ?Drinking too much caffeine or alcohol. ?Certain medicines, especially those that eliminate extra fluid in the body (diuretics). ?Constipation. What increases the risk? You may be at greater risk for overactive bladder if you: Are an older adult. Smoke. Are going through menopause. Have prostate problems. Have a neurological disease, such as stroke, dementia, Parkinson's disease, or multiple sclerosis (MS). Eat or drink alcohol, spicy food, caffeine, and other things that irritate the bladder. Are overweight or obese. What are the signs or symptoms? Symptoms of this condition include a sudden, strong urge to urinate. Other symptoms include: Leaking urine. Urinating 8 or more times a day. Waking up to urinate 2 or more times overnight. How is this diagnosed? This condition may be diagnosed based on: Your symptoms and medical history. A physical exam. Blood or urine tests to check for possible causes, such as infection. You may also need to see a health care provider who specializes in urinary tract problems. This is called a urologist. How is this treated? Treatment for overactive bladder depends on the cause of your condition and whether it is mild or severe. Treatment may include: Bladder training, such as: ?Learning to control the urge to urinate by following a schedule to urinate at regular intervals. ?Doing Kegel exercises to strengthen the pelvic floor muscles that support your bladder. Special devices, such as: ?Biofeedback. This uses sensors to help you become aware of your body's signals. ?Electrical stimulation. This uses electrodes placed inside the body (implanted) or outside the body. These electrodes send gentle pulses of electricity to strengthen the nerves or muscles that control the bladder. ?Women may use a plastic device, called a pessary, that fits into the vagina and supports the bladder. Medicines, such as: ?Antibiotics to treat bladder infection. ?Antispasmodics to stop the bladder from releasing urine at the wrong time. ?Tricyclic antidepressants to relax bladder muscles. ?Injections of botulinum toxin type A directly into the bladder tissue to relax bladder muscles. Surgery, such as: ?A device may be implanted to help manage the nerve signals that control urination. ?An electrode may be implanted to stimulate electrical signals in the bladder. ?A procedure may be done to change the shape of the bladder. This is done only in very severe cases. Follow these instructions at home: Eating and drinking Make diet or lifestyle changes recommended by your health care provider. These may include: ?Drinking fluids throughout the day and not only with meals. ?Cutting down on caffeine or alcohol. ?Eating a healthy and balanced diet to prevent constipation. This may include: ?Choosing foods that are high in fiber, such as beans, whole grains, and fresh fruits and vegetables. ?Limiting foods that are high in fat and processed sugars, such as fried and sweet foods. Lifestyle Lose weight if needed. Do not use any products that contain nicotine or tobacco. These include cigarettes, chewing tobacco, and vaping devices, such as e-cigarettes. If you need help quitting, ask your health care provider. General instructions Take ezoo-obm-fyifgfy and prescription medicines only as told by your health care provider. If you were prescribed an antibiotic medicine, take it as told by your health care provider. Do notstop taking the antibiotic even if you start to feel better. Use any implants or pessary as told by your health care provider. If needed, wear pads to absorb urine leakage. Keep a log to track how much and when you drink, and when you need to urinate. This will help your health care provider monitor your condition. Keep all follow-up visits. This is important. Contact a health care provider if: You have a fever or chills. Your symptoms do not get better with treatment. Your pain and discomfort get worse. You have more frequent urges to urinate. Get help right away if: You are not able to control your bladder. Summary Overactive bladder refers to a condition in which a person has a sudden and frequent need to urinate. Several conditions may lead to an overactive bladder. Treatment for overactive bladder depends on the cause and severity of your condition. Making lifestyle changes, doing Kegel exercises, keeping a log, and taking medicines can help with this condition. This information is not intended to replace advice given to you by your health care provider. Make sure you discuss any questions you have with your health care provider. Document Revised: 11/15/2020 Document Reviewed: 11/15/2020 [employer] Patient Education 2023 [employer]. Follow Up Care 10/21/2024 13:16:41 With:Nia De Leon, URL Address: When:3 months Comments:w/ KATIE [facility] 08-18-2025 NotePatient Education Obstetrics and Gynecology Overactive Bladder, Adult Overactive bladder is a condition in which a person has a sudden and frequent need to urinate. A person might also leak urine if he or she cannot get to the bathroom fast enough (urinary incontinence). Sometimes, symptoms can interfere with work or social activities. What are the causes? Overactive bladder is associated with poor nerve signals between your bladder and your brain. Your bladder may get the signal to empty before it is full. You may also have very sensitive muscles thatmake your bladder squeeze too soon. This condition may also be caused by other factors, such as: ??? Medical conditions: ? Urinary tract infection. ? Infection of nearby tissues. ? Prostate enlargement. ? Bladder stones, inflammation, or tumors. ? Diabetes. ? Muscle or nerve weakness, especially from these conditions: ? A spinal cord injury. ? Stroke. ? Multiple sclerosis. ? Parkinson's disease. ??? Other causes: ? Surgery on the uterus or urethra. ? Drinking too much caffeine or alcohol. ? Certain medicines, especially those that eliminate extra fluid in the body (diuretics). ? Constipation. What increases the risk? You may be at greater risk for overactive bladder if you: ??? Are an older adult. ??? Smoke. ??? Are going through menopause. ??? Have prostate problems. ??? Have a neurological disease, such as stroke, dementia, Parkinson's disease, or multiple sclerosis (MS). ??? Eat or drink alcohol, spicy food, caffeine, and other things that irritate the bladder. ??? Are overweight or obese. What are the signs or symptoms? Symptoms of this condition include a sudden, strong urge to urinate. Other symptoms include: ??? Leaking urine. ??? Urinating 8 or more times a day. ??? Waking up to urinate 2 or more times overnight. How is this diagnosed? This condition may be diagnosed based on: ??? Your symptoms and medical history. ??? A physical exam. ??? Blood or urine tests to check for possible causes, such as infection. You may also need to see a health care provider who specializes in urinary tract problems. This is called a urologist. How is this treated? Treatment for overactive bladder depends on the cause of your condition and whether it is mild or severe. Treatment may include: ??? Bladder training, such as: ? Learning to control the urge to urinate by following a schedule to urinate at regular intervals. ? Doing Kegel exercises to strengthen the pelvic floor muscles that support your bladder. ??? Special devices, such as: ? Biofeedback. This uses sensors to help you become aware of your body's signals. ? Electrical stimulation. This uses electrodes placed inside the body (implanted) or outside the body. These electrodes send gentle pulses of electricity to strengthen the nerves or muscles that control the bladder. ? Women may use a plastic device, called a pessary, that fits into the vagina and supports the bladder. ??? Medicines, such as: ? Antibiotics to treat bladder infection. ? Antispasmodics to stop the bladder from releasing urine at the wrong time. ? Tricyclic antidepressants to relax bladder muscles. ? Injections of botulinum toxin type A directly into the bladder tissue to relax bladder muscles. ??? Surgery, such as: ? A device may be implanted to help manage the nerve signals that control urination. ? An electrode may be implanted to stimulate electrical signals in the bladder. ? A procedure may be done to change the shape of the bladder. This is done only in very severe cases. Follow these instructions at home: Eating and drinking ??? Make diet or lifestyle changes recommended by your health care provider. These may include: ? Drinking fluids throughout the day and not only with meals. ? Cutting down on caffeine or alcohol. ? Eating a healthy and balanced diet to prevent constipation. This may include: ? Choosing foods that are high in fiber, such as beans, whole grains, and fresh fruits and vegetables. ? Limiting foods that are high in fat and processed sugars, such as fried and sweet foods. Lifestyle ??? Lose weight if needed. ??? Do not use any products that contain nicotine or tobacco. These include cigarettes, chewing tobacco, and vaping devices, such as e-cigarettes. If you need help quitting, ask your health care provider. General instructions ??? Take cdex-ujo-dibjbff and prescription medicines only as told by your health care provider. ??? If you were prescribed an antibiotic medicine, take it as told by your health care provider. Donot stop taking the antibiotic even if you start to feel better. ??? Use any implants or pessary as told by your health care provider. ??? If needed, wear pads to absorb urine leakage. ??? Keep a log to track how much and when you drink, and whe (more content not included)...[facility]06-12-2025 History of Present illness Narrative* Aniket Jhaveri DPM - 08/21/2024 1:00 PM EDT [...] day til pain resolves documented in this encounterSSM [id number] History of Present illness Narrative* Ronald Franco MD - 07/29/2024 11:21 AM EDT Images from the original note were not included. TBI NEUROLOGY INITIAL CONSULT Carly Marcelino Age: [age] year old PCP: No primary care provider on file. 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 Went for craniotomy and evacuation followed by JOHNY richter. Did well post-op. No headaches. Returned to full function. Cooks, takes care of her own bills, only thing she is not doing is driving, and she wants to get back to doing that. Denies all complaints referable to the SDH or surgery. Allergies: Allergies[1] Medications: Current Outpatient Medications Medication Sig Dispense Refill amantadine (SYMMETREL) 50 MG/5ML SOLN oral syrup 10 mL by NG Tube route 2 times daily. 473 mL 0 chlorhexidine (PERIDEX) 0.12 % oral solution Take 15 mL by mouth 2 times daily. 118 mL 3 multivitamins with minerals (CEROVITE) LIQD oral liquid 15 mL by NG Tube route daily. 236 mL 0 polyethylene glycol (MIRALAX) packet Dissolve 1 Packet (17 g total) in 8 ounces of liquid and drinkdaily. 12 Each 3 doxazosin (CARDURA) 4 MG tablet Take 1 Tablet by mouth daily. 30 Tablet 0 folic acid 1 MG tablet Take 1 Tablet by mouth daily for 2 doses. 2 Tablet 0 lisinopril (ZESTRIL) 5 MG tablet Take 1 Tablet by mouth daily. 30 Tablet 0 levETIRAcetam (KEPPRA) 100 MG/ML oral solution Take 5 mL by mouth 2 times daily. 240 mL 1 melatonin 3 MG TABS tablet Take 1 Tablet by mouth at bedtime. 90 Tablet 0 senna (SENOKOT) 8.6 MG tablet Take 1 Tablet by mouth daily as needed. 30 Tablet 0 spironolactone (ALDACTONE) 25 MG tablet Take 1 Tablet by mouth. triamterene-hydrochlorothiazide (MAXZIDE) 37.5-25 MG tablet Take 1 Tablet by mouth daily. vitamin E 400 UNIT capsule Take by mouth every 24 hours. B Complex Vitamins CAPS Take 1 Capsule by mouth daily. benzonatate (TESSALON) 200 MG capsule TAKE 1 CAPSULE BY MOUTH THREE TIMES DAILY FOR 10 DAYS NEEDED FOR COUGH cetirizine (ZyrTEC) 10 MG tablet Take 10 mg by mouth daily. Cholecalciferol (Vitamin D-3) 25 MCG (1000 UT) CAPS Cholecalciferol (Vitamin D3) Active PO Daily May 14, 2023 1:00am FreeTextSig: Orally Daily; Note: Source Status: Taking; Provider: Michael Yip ( ) Coenzyme Q10 (Co Q 10) 100 MG CAPS Take by mouth every 24 hours. Cyanocobalamin 1000 MCG CAPS Cyanocobalamin (Vitamin B-12) Active 1000 MCG PO Daily June 28, 2023 12:00am DOCOSAHEXAENOIC ACID ORAL Take 1 Capsule by mouth daily. ferrous sulfate 325 (65 Fe) MG tablet Take 325 mg by mouth daily. gabapentin (NEURONTIN) 300 MG capsule guaifenesin (MUCINEX) 600 MG SR tablet Take 1,200 mg by mouth. LORazepam (ATIVAN) 0.5 MG tablet Take 0.5 mg by mouth 3 times daily as needed. losartan (COZAAR) 50 MG tablet Take 50 mg by mouth. Magnesium Oxide 400 MG CAPS Take by mouth daily. metoprolol (LOPRESSOR) 25 MG tablet Take 12.5 mg by mouth. montelukast (SINGULAIR) 10 MG tablet Take 10 mg by mouth daily. nitroglycerin (NITROSTAT) 0.4 MG sublingual tablet Nitroglycerin Active 0.4 MG SUBLINGUAL Q5M April 30, 2023 1:00am calcium, elemental, (OSCAL,) 500 MG tablet Take by mouth every 24 hours. pravastatin (PRAVACHOL) 40 MG tablet Take 40 mg by mouth daily. albuterol (PROVENTIL HFA) INHALATION HFA inhaler (VENTOLIN,PROAIR,PROVENTIL) 90mcg INHALE 2 PUFFS EVERY 6 HOURS NEEDED FOR WHEEZING Ascorbic Acid 250 MG CHEW Take by mouth every 12 hours. No current facility-administered medications for this visit. PMH: Medical History[2] PSH: Surgical History[3] Medical history, surgical history, and problem list reviewed and updated as necessary. ROS: General: Denies weight change, fatigue, weakness, fever/chills, night sweats. Head: Per HPI Eyes: Denies Ears: Hard of hearing; has not had an audiology screen Nose/Sinuses: Denies Mouth/Throat: Denies Neck: Denies Respiratory; Denies Cardiac: Denies GI: Denies Vascular: Denies Neurologic: See HPI. Hematologic: Denies Endocrine: Denies Skin: Denies BP 177/86 Pulse 62 Neuro Exam: MSE: Alert, oriented to person, place, time; attentive; concentration intact (able to spell WORLD f/b); speech normal (nl rate/flow/comprehension/naming/repetition); memory intact (immediate, short, l karoline) CN: Pupils: L 3mm reactive, R 3mm reactive. Visual acuity grossly intact OU. EOM are full, no nystagmus, no ptosis. Sensation V1,V2,V3 intact and MM strong. Face symmetric and strong bilat. No auditory abnormalities. Palate symmetric. Strong swallow. Gag present. Shoulder shrug and SCM 5/5 strength bilat. Tongue midline. Motor: Normal tone and bulk throughout. No fascicualtions. Upper extremity power: Right: Deltoid 5/5 Left: Deltoid 5/5 Biceps 5/5 Biceps 5/5 Triceps 5/5 Triceps 5/5 Wrist F/E 5/5 Wrist F/E 5/5 Finger flexion 5/5 Finger flexion 5/5 Interossei 5/5 Interossei 5/5 abductor pollicis 5/5 abductor pollicis 5/5 Lower Extremity power: Right: Hip flexion 5/5 Hip flexion 5/5 Hip extension 5/5 Hip extension 5/5 Knee flexion 5/5 Knee flexion 5/5 Knee extension 5/5 Knee extension 5/5 Ankle dorsiflex 5/5 Ankle dorsiflex 5/5 Ankle plantarflex 5/5 Ankle plantarflex 5/5 EHL 5/5 EHL 5/5 Toe curl 5/5 Toe curl 5/5 Inversion 5/5 Inversion 5/5 Eversion 5/5 Eversion 5/5 DTRs: RIGHT: LEFT: brachioradialis 2+ brachioradialis 2+ biceps 2+ biceps 2+ triceps 2+ triceps 2+ patellar 2+ patellar 2+ ankle jerk 2+ ankle jerk 2+ plantar down plantar down Sensory: Intact pain, temperature, light touch, proprioception, and vibratory sense bilaterally in all extremities. Coordination: Normal heel to jimenez and ldsfjh-hetz-siicwq testing bilaterally. Rapid alternating movements within normal limits. Gait: Unassisted, stable. Normal stride length, base, and normal arm swing. Absent Romberg's. Physical Exam: General appearance: Well-nourished. NAD Psychiatric: Appropriate mood and affect HEENT: See neuro exam below. Normocephalic, mucosa normal, neck supple. No thyromegaly or cervical lymphadenopathy. No carotid bruit b/l Optic Fundi: deferred Pulmonary: LCTA bilaterally Cardiovascular: RRR w/S1 and S2. No murmurs, gallops, or rubs Abdomen: Bowel sounds normal, non-tender to palpation, no organomegaly Extremities: POE. No gross or obvious abnormalities, no edema Spine: Straight Skin: No gross or obvious abnormalities on visible skin Lab data: BMP (last 3 years, up to 8 [...] 285 296 263 282 278 300 314 No results found for: ALT , AST Lipids (last 3 years, up to 8 values) No lab values to display. Lab Results Component Value Date HBA1C 4.9 05/03/2023 Imaging data: CT scans reviewed Impression/suggestions: 84 F s/p FFS with large compressive tSDH requiring katty holes and evac. She seems to have made an excellent recovery. Plan: OT for driving eval Audiology screen Follow-up: Return to clinic in 6 mos Counselling/ Patient Education: Discussion, counselling, coordination of care > 50% of 60 minutes. All patient questions were asked/ answered. Follow-up with results/ adherence to plan/ continued education were also established. Ronald Franco MD 11:21 AM 07/29/24 [1] Allergies Allergen Reactions Hydantoins Anaphylactic Shock and [...] Other intolerance Nitrofurantoin Rash across nose/ cheeks [2] No past medical history on file. [3] Past Surgical History: Procedure Laterality Date KATTY HOLES, HEMATOMA EVACUATION Left 08/14/2023 Procedure: KATTY HOLES x2, HEMATOMA EVACUATION; Surgeon: Artem Li MD; Location: [facility]; Service: Neurosurgery documented in this [id number] Evaluation note* Diagnosis Onset Date Resolution Status Admit Date Medicare annual wellness visit, subseque nt noneactiveMarch 2024 3:08pmCoronary artery diseaseacuteMay 2024 1:19pmEssential (primary) hypertensionacuteMay 2024 1:19pmSubarachnoid hemorrhageacuteMay 2024 1:19pmChronic venous hypertensionchronicMay 2024 1:19pmLymphedema of both lower extremitieschronicMay 2024 1:19pm History of head injurynoneactiveMay 2024 1:19pm [facility] Work Phone: [phone]) 309-288203-12-2025 Evaluation note* Diagnosis Onset Date Resolution Status Admit Date Medicare annual wellness visit, john barakat noneactiveMarch 2024 3:08pmCoronary artery diseaseacuteMay 2024 1:19pmEssential (primary) hypertensionacuteMay 2024 1:19pmSubarachnoid hemorrhageacuteMay 2024 1:19pmChronic venous hypertensionchronicMay 2024 1:19pmLymphedema of both lower extremitieschronicMay 2024 1:19pm History of head injurynoneactiveMay 2024 1:19pmSubarachnoid hemorrhage acuteMay 2024 2:28pmSubdural hematoma caused by concussionacuteMay 2024 2:28pmSkin lesion of right legnoneactiveMay 2024 2:28pmAbrasion of left forearm, initial encounternoneactiveMay 2024 2:28pm [facility] Work Phone: [phone]) 575-820802-10-2025 Hospital Discharge instructions Patient Education 04/21/2024 15:23:37 Abrasion, Kkrs-bd-Kfgf Abrasion An abrasion is a cut or a scrape on your skin. You must take care of your wound so germs do not getin it and cause infection. What are the causes? This condition is caused by rubbing your skin on something or falling on a surface, such as the ground. When your skin rubs on something, some layers of skin may rub off. What are the signs or symptoms? A cut or a scrape. Bleeding. A red or pink spot. A bruise under your wound. How is this treated? This condition may be treated with: Cleaning your wound. Putting ointment on your wound. Putting a bandage on your wound. Getting a tetanus shot. Follow these instructions at home: Your doctor may tell you to do these things: Medicines Take or use fwyy-dsl-wadukgv and prescription medicines only as told by your doctor. If you were prescribed an antibiotic medicine, use it as told by your doctor. Do not stop using it even if you start to feel better. Keep your wound clean Clean your wound 1 or 2 times a day or as often told by your doctor. To do this: 1.Wash your hands for at least 20 seconds with mild soap and water. Do this before and after you clean your wound. 2.Wash your wound with mild soap and water. 3.Rinse off the soap. 4.Pat your wound with a clean towel to dry it. Do not rub your wound. Keep your bandage clean and dry. Take it off and change it as told by your doctor. ?You may have to change your bandage one or more times a day, or as told by your doctor. Watch for signs of infection Check your wound every day for signs of infection. Check for: A red streak that goes away from your wound. Other redness. Swelling or more pain. Warmth. Blood, fluid, pus, or a bad smell. Treat pain and swelling If told, put ice on the injured area. To do this: ?Put ice in a plastic bag. ?Place a towel between your skin and the bag. ?Leave the ice on for 20 minutes, 2 3 times a day. ?Take off the ice if your skin turns bright red. This is very important. If you cannot feel pain, heat, or cold, you have a greater risk of damage to the area. If you can, raise the injured area above the level of your heart while you are sitting or lying down. General instructions Do not take baths, swim, or use a hot tub. Ask your doctor about taking showers or sponge baths. Keep all follow-up visits. Contact a doctor if: You had a tetanus shot, and you have any of these where the needle went in: ?Swelling. ?Very bad pain. ?Redness. ?Bleeding. You have a lot of pain, and medicine does not help. You have a fever. You have any of these signs of infection in your wound: ?Redness, swelling, or more pain. ?Blood, fluid, pus, or a bad smell. ?Warmth. Get help right away if: You have a red streak going away from your wound. Summary An abrasion is a cut or a scrape on your skin. Take care of your wound so germs do not get in it. Clean your wound 1 or 2 times a day or as often as told. Change your bandage as told and use medicines as told. Call your doctor if you have a fever or if you have redness, swelling, or more pain in your wound. Call your doctor if you have blood, fluid, pus, or a bad smell in your wound. Get help right away if you have a red streak going away from your wound. This information is not intended to replace advice given to you by your health care provider. Make sure you discuss any questions you have with your health care provider. Document Revised: 05/27/2020 Document Reviewed: 05/27/2020 [employer] Patient Education 2023 [employer]. Follow Up Care 04/21/2024 14:29:42 With:HARDEEP MCKENZIE Address: [facility] [address] [address]- Business (1) When:04/24/2024 15:03:04 Comments:Call Dr for diagnosis based follow up [facility] 02-10-2025 NoteED Patient Education Note Dermatology Abrasion An abrasion is a cut or a scrape on your skin. You must take care of your wound so germs do not getin it and cause infection. What are the causes? This condition is caused by rubbing your skin on something or falling on a surface, such as the ground. When your skin rubs on something, some layers of skin may rub off. What are the signs or symptoms? A cut or a scrape. ??? Bleeding. ??? A red or pink spot. ??? A bruise under your wound. How is this treated? This condition may be treated with: ??? Cleaning your wound. ??? Putting ointment on your wound. ??? Putting a bandage on your wound. ??? Getting a tetanus shot. Follow these instructions at home: Your doctor may tell you to do these things: Medicines ??? Take or use sjqp-cga-gdgcfwy and prescription medicines only as told by your doctor. ??? If you were prescribed an antibiotic medicine, use it as told by your doctor. Do not stop usingit even if you start to feel better. Keep your wound clean ??? Clean your wound 1 or 2 times a day or as often told by your doctor. To do this: 1. Wash your hands for at least 20 seconds with mild soap and water. Do this before and after you clean your wound. 2. Wash your wound with mild soap and water. 3. Rinse off the soap. 4. Pat your wound with a clean towel to dry it. Do not rub your wound. ??? Keep your bandage clean and dry. Take it off and change it as told by your doctor. ? You may have to change your bandage one or more times a day, or as told by your doctor. Watch for signs of infection Check your wound every day for signs of infection. Check for: ??? A red streak that goes away from your wound. ??? Other redness. ??? Swelling or more pain. ??? Warmth. ??? Blood, fluid, pus, or a bad smell. Treat pain and swelling ??? If told, put ice on the injured area. To do this: ? Put ice in a plastic bag. ? Place a towel between your skin and the bag. ? Leave the ice on for 20 minutes, 2?3 times a day. ? Take off the ice if your skin turns bright red. This is very important. If you cannot feel pain, heat, or cold, you have a greater risk of damage to the area. ??? If you can, raise the injured area above the level of your heart while you are sitting or lyingdown. General instructions ??? Do not take baths, swim, or use a hot tub. Ask your doctor about taking showers or sponge baths. ??? Keep all follow-up visits. Contact a doctor if: ??? You had a tetanus shot, and you have any of these where the needle went in: ? Swelling. ? Very bad pain. ? Redness. ? Bleeding. ??? You have a lot of pain, and medicine does not help. ??? You have a fever. ??? You have any of these signs of infection in your wound: ? Redness, swelling, or more pain. ? Blood, fluid, pus, or a bad smell. ? Warmth. Get help right away if: ??? You have a red streak going away from your wound. Summary ??? An abrasion is a cut or a scrape on your skin. Take care of your wound so germs do not get in it. ??? Clean your wound 1 or 2 times a day or as often as told. Change your bandage as told and use medicines as told. ??? Call your doctor if you have a fever or if you have redness, swelling, or more pain in your wound. ??? Call your doctor if you have blood, fluid, pus, or a bad smell in your wound. ??? Get help right away if you have a red streak going away from your wound. This information is not intended to replace advice given to you by your health care provider. Make sure you discuss any questions you have with your health care provider. Document Revised: 05/27/2020 Document Reviewed: 05/27/2020 [employer] Patient Education ? 2023 [employer].[facility] 04-21-2024 History of Present illness Narrative* Aniket Childress, DO - 04/21/2024 1:00 PM EST Images from the original note were not included. Ml; SAH Subjective Carly Marcelino, 83 y.o., female Patient presents today for a neurologic consult at the request of Dr. Mckenzie for subarachnoid hemorrhage. Patient states she was going to [employer] and she fell and hit her head last Mothers Day. She is unsure why she fell she does not remember if she was dizzy or not. She notes having some memory issues since the fall. She is unable to think of things as quickly as she once was able to. She admitsto sleeping well at night about 7-8 hours. She denies any vivid dreams or hallucinations. She denies any increase in agitation. She is independent of all ADL's. She does ambulate with a walker because of some imbalance. She denies any headaches, blurred vision, or dizziness. She is now living with her daughter who is battling an aggressive form of breast cancer and her daughters . Patient admits to a lot of anxiety and stress around her daughter being ill and her son passing away last year. She states her blood pressure will become very high at times. In office today she was 148/88. She does admit to a history of seizure disorder. She is on Keppra 500 mg BID. She denies having a seizure for the last 20-30 years. Review of Systems Constitutional: Negative for appetite change, fatigue and fever. Respiratory: Negative for cough, shortness of breath and wheezing. Cardiovascular: Negative for chest pain, palpitations and leg swelling. Gastrointestinal: Negative for abdominal pain, constipation, diarrhea and nausea. Musculoskeletal: Negative for arthralgias, gait problem and myalgias. Neurological: Negative for dizziness, tremors, numbness and headaches. Memory issues Past Medical History: Diagnosis Date Heart attack (CMS/HCC) Hyperlipidemia (CMS/HCC) Hypertension (CMS/HCC) Past Surgical History: Procedure Laterality Date ANKLE ARTHROSCOPY W/ OPEN REPAIR CORONARY STENT PLACEMENT MR ANGIOGRAM HEAD WO IV CONTRAST 05/04/2023 MR ANGIOGRAM HEAD WO IV CONTRAST 05/04/2023 No family history on file. Social History Tobacco Use Smoking status: Former Current packs/day: 0.00 Types: Cigarettes Quit date: 1982 Years since quittin.1 Smokeless tobacco: Never Substance Use Topics Alcohol use: Never Allergies: Hydantoins, Hydrochlorothiazide, Sertraline, Carbamazepine, Mometasone furo-formoterol fum, Mometasone furoate, Amlodipine, Labetalol, Nifedipine, Nitrofurantoin, Valproic acid, and Wound dressing adhesive Vitals: 04/21/24 1314 BP: 148/88 Pulse: 62 SpO2: 92% Body mass index is 28.87 kg/m . weight: 168 lb 3.2 oz Neurologic exam: Mental status: Awake, alert to person, place and time. Recent and remote memory are intact. Language is fluent without aphasia. No true aphasia but the patient does have some subtle delay in speech output Attention and concentration are normal. Fund of knowledge is appropriate for level of education. Cranial nerves: CN II: Visual acuity is normal. Visual escobar full to confrontation. CN III, IV, : pupils equal round and reactive to light. Extraocular movements intact. No ptosis present. CN V: Facial sensation is normal. CN VII: Full and symmetric facial movement. CN VIII: Hearing is normal to finger rub bilaterally: CN IX and X: Palate elevates symmetrically. CN XI: Shoulder shrug is normal bilaterally. CN XII: Tongue is midline without atrophy or fasciculation. Motor: RUE Strength deltoid, , biceps , triceps , wrist extensors , wrist flexor , beef splitter strength 5/5. LUE Strength deltoid , biceps , triceps , wrist extensors , wrist flexor , beef splitter strength 5/5. RLE Strength illopsoas, quadriceps, tibialis anterior, and gastrocnemius strength 5/5. LLE Strength illopsoas, quadriceps, tibialis anterior, and gastrocnemius strength 5/5. Normal tone x4 extremities. Bulk is normal. Sensory: Sensation is intact to light touch throughout Four extremities. Reflexes: RUE biceps reflex 1+ brachioradialis reflex 2+ . LUE biceps reflex 1+ brachioradialis reflex 2+ . RLE knee reflex 0 . LLE knee reflex 0. Chan's sign negative. Coordination: Nzltxn-az-pbfe testing and rapid alternating movements are normal Gait: Patient ambulates with a walker Review and summary of old records: I have reviewed ER department documentation from April 11, 2024 where the patient was admitted with altered mental status. CT of the brain was unremarkable at that time for acute pathology would explain the patient's symptoms. Patient's blood pressure was found to be 190/90. She was given medication to treat this and it did come down. Her mental status did improve. She was diagnosed with hypertensive urgency and discharged in stable condition. MRI of the lumbar spine on 04/09/2024: Compression fracture at T12 with marrow edema. Height loss has mildly progressed since 12/19/2023. Multilevel degenerative changes and foraminal narrowing advanced on the right at T12/L1. Soft tissue edema to 11/12. I have reviewed hospital admission from August of 2023 at [facility] where the patientwas transferred from [place] with altered mental status after a fall leading to subacute on chronicsubdural hematomas requiring katty hole x2 for evacuation along with a placement of a left-sided subgaleal drain and then cerebral angiography with left middle meningeal artery embolization. Patient then suffered subsequent fall leading to T12 fracture and was evaluated again in [place] for this purpose. 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 The patient continues to do quite well. She did have a setback with fall and T12 fracture thereafter in the summer of 2023. However, she continued to do well with the care of her daughter thereafter. Plan: As the patient is postsurgical from [facility] in [place], she certainly needs follow up with the surgical team there. We understand the transportation limitations I am aware that [facility] doesdo telephone visits. I did tell the patient that she need to contact our department and follow up with them at least via tele visit or telephone if she is unable to go in person. She voiced understanding The patient did have extensive discussion with me regarding the intracranial hemorrhage and the need for continued therapy services at home. We did have offer for speech therapy evaluation and treatment. The patient did state that she really can not get to and from speech therapy at this time as she stayed with her daughter who is battling breast cancer. We did go over signs and symptoms of stroke in detail and the need to present to the emergency department with any such signs or symptoms. Essential hypertension (CMS/HCC) The patient did have an episode of altered mental status in March 2024 which I think was precipitated from substantially elevated blood pressure to time of admission. The fluctuation of blood pressure may be stress related given the diagnosis of her daughter. Repeat CT of the brain at that time was unremarkable for acute pathology. Plan: Patient will need to follow up closely with primary care for tighter control of blood pressure and stress as well. History of seizure disorder Patient has a nonspecific history of seizure disorder. The patient is on Keppra 500 mg p.o. b.I.d..Last seizure was 20 years ago. The patient now also has increased risk factors for seizure given the intracranial hemorrhage. Also elevated blood pressure could lead to seizures in the setting of press. Plan: Continue Keppra 500 mg p.o. b.I.d. Given the patient's fluctuating blood pressures, recent intracranial hemorrhage, baseline gait difficulty with the utilization of a walker and admitted delay in speech and other physical abilities, Jose not think the patient is appropriate to drive. I did go over this with her in detail. She agreesnot to drive. She came today with a friend states she will not drive going forward. High-degree morbidity and mortality condition with intracranial hemorrhage, need for review of extensive records and hospital admissions and prior surgeries in the need for extensive discussion with the patient on need for appropriate follow up. Pt has been fully educated on their diagnosis, lab results, treatment options, follow up plan, and return instructions documented in this encounterSSM [id number] Hospital Discharge instructions Follow Up Care 04/11/2024 13:51:03 With:HARDEEP MCKENZIE Address: Ghislaine SILVA [facility] [address] [place] [address]- Business (1) When:Within 3 Day(s) [facility] [id number] Evaluation + Plan noteExtracted from:Title: ED NoteAuthor:Chirag ZHANG, JohnDate:04/11/24 Hypertensive urgency (I16.0: Hypertensive urgency) Orders: hydrALAZINE, 10 mg = 0.5 mL, Injection, IV Push, Once, Stop date 04/11/24 15:46:00 EST, STAT, Startdate 04/11/24 15:46:00 EST, 04/11/24 15:46:00 EST lisinopril, 10 mg = 1 tab(s), Tab, Oral, Once, Stop date 04/11/24 15:46:00 EST, STAT, Start date 04/11/24 15:46:00 EST, 04/11/24 15:46:00 EST Basic Metabolic Panel CBC w/ Auto Diff CT Head or Brain w/o Contrast eGFR Extra Blue Tube Extra SST Tube Saline Lock Insert Troponin 0 Hr. Troponin 1 Hr. XR Chest Single View [facility] [id number] Hospital Discharge instructionsAmbulatory Orders* Referral to Neurology Time Frame: 03/21/24, Location: None Selected [facility] Work Phone: 1(860) 718-163601-10-2025 Evaluation note* Diagnosis Onset Date Resolution Status Admit Date Subarachnoid hemorrhage acuteJan2024 10:16amSubdural hematoma caused by concussionacute March 21, 2024 10:16amMedicare annual wellness visit, subsequentnoneactive March 21, 2024 10:16amBilateral carotid artery stenosisacuteFebruary 2024 1:02pmFormer smokeracuteFebruary 2024 1:02[facility] Work Phone: 1(127) 933-952012-30-2024 Hospital Discharge instructions Patient Education 03/09/2024 23:23:27 Food Choices to Help Relieve Diarrhea, Adult Food Choices to Help Relieve Diarrhea, Adult Diarrhea can make you feel weak and cause you to become dehydrated. Dehydration is a condition in which there is not enough water or other fluids in the body. It is important to choose the right foods and drinks to: Relieve diarrhea. Replace lost fluids and nutrients. Prevent dehydration. What are tips for following this plan? Relieving diarrhea Avoid foods that make your diarrhea worse. These may include: ?Foods and drinks that are sweetened with high-fructose corn syrup, honey, or sweeteners such as xylitol, sorbitol, and mannitol. Check food labels for these ingredients. ?Fried, greasy, or spicy foods. ?Raw fruits and vegetables. Eat foods that are rich in probiotics. These include foods such as yogurt and fermented milk products. Probiotics can help increase healthy bacteria in your stomach and intestines (gastrointestinal or GI tract). This may help digestion and stop diarrhea. If you have lactose intolerance, avoid dairy products. These may make your diarrhea worse. Take medicine to help stop diarrhea only as told by your health care provider. Replacing nutrients Eat bland, rmhi-jw-pirfyl foods in small amounts as you are able, until your diarrhea starts to getbetter. These foods include bananas, applesauce, rice, toast, and crackers. Over time, add nutrient-rich foods as your body tolerates them or as told by your health care provider. These include: ?Well-cooked protein foods, such as eggs, lean meats like fish or chicken without skin, and tofu. ?Peeled, seeded, and soft-cooked fruits and vegetables. ?Low-fat dairy products. ?Whole grains. Take vitamin and mineral supplements as told by your health care provider. Preventing dehydration Start by sipping water or a solution to prevent dehydration (oral rehydration solution, or ORS). This is a drink that helps replace fluids and minerals your body has lost. You can buy an ORS at pharmacies and retail stores. Try to drink at least 8 10 cups (2,000 2,500 mL) of fluid each day to help replace lost fluids. If your urine is pale yellow, you are getting enough fluids. You may drink other liquids in addition to water, such as fruit juice that you have added water to (diluted fruit juice) or low-calorie sports drinks, as tolerated or as told by your health care provider. Avoid drinks with caffeine, such as coffee, tea, or soft drinks. Avoid alcohol. This information is not intended to replace advice given to you by your health care provider. Make sure you discuss any questions you have with your health care provider. Document Revised: 08/15/2022 Document Reviewed: 08/15/2022 [employer] Patient Education 2023 [employer]. 03/09/2024 23:23:27 Diarrhea, Adult, Efln-mx-Yrin Diarrhea, Adult Diarrhea is when you pass loose and sometimes watery poop (stool) often. Diarrhea can make you feelweak and cause you to lose water in your body (get dehydrated). Losing water in your body can causeyou to: Feel tired and thirsty. Have a dry mouth. Go pee (urinate) less often. Diarrhea often lasts 2 3 days. It can last longer if it is a sign of something more serious. Be sure to treat your diarrhea as told by your doctor. Follow these instructions at home: Eating and drinking Follow these instructions as told by your doctor: Take an ORS (oral rehydration solution). This is a drink that helps you replace fluids and mineralsyour body lost. It is sold at pharmacies and stores. Drink enough fluid to keep your pee (urine) pale yellow. ?Drink fluids such as: ?Water. You can also get fluids by sucking on ice chips. ?Diluted fruit juice. ?Low-calorie sports drinks. ?Milk. ?Avoid drinking fluids that have a lot of sugar or caffeine in them. These include soda, energy drinks, and regular sports drinks. ?Avoid alcohol. Eat bland, gdcw-hr-vxiixr foods in small amounts as you are able. These foods include: ?Bananas. ?Applesauce. ?Rice. ?Low-fat (lean) meats. ?[place]. ?Crackers. Avoid spicy or fatty foods. Medicines Take npuu-yqh-pfwacrx and prescription medicines only as told by your doctor. If you were prescribed antibiotics, take them as told by your doctor. Do not stop taking them even if you start to feel better. General instructions Wash your hands often using soap and water for 20 seconds. If soap and water are not available, usehand doll repairer. Others in your home should wash their hands as well. Wash your hands: ?After using the toilet or changing a diaper. ?Before preparing, cooking, or serving food. ?While caring for a sick person. ?While visiting someone in a hospital. Rest at home while you get better. Take a warm bath to help with any burning or pain from having diarrhea. Watch your condition for any changes. Contact a doctor if: You have a fever. Your diarrhea gets worse. You have new symptoms. You vomit every time you eat or drink. You feel light-headed, dizzy, or you have a headache. You have muscle cramps. You have signs of losing too much water in your body, such as: ?Dark pee, very little pee, or no pee. ?Cracked lips. ?Dry mouth. ?Sunken eyes. ?Sleepiness. ?Weakness. You have bloody or black poop or poop that looks like tar. You have very bad pain, cramping, or bloating in your belly (abdomen). Your skin feels cold and clammy. You feel confused. Get help right away if: You have chest pain. Your heart is beating very quickly. You have trouble breathing or you are breathing very quickly. You feel very weak or you faint. These symptoms may be an emergency. Get help right away. Call 911. Do not wait to see if the symptoms will go away. Do not drive yourself to the hospital. This information is not intended to replace advice given to you by your health care provider. Make sure you discuss any questions you have with your health care provider. Document Revised: 08/15/2022 Document Reviewed: 08/15/2022 [employer] Patient Education 2023 [employer]. Follow Up Care 03/09/2024 19:00:45 With:HARDEEP MCKENZIE Address: [facility] [place] [id number] [facility] (1) When: Unknown Comments:Call the office tomorrow [facility] 12-29-2024 NoteED Patient Education Note Gastroenterology Food Choices to Help Relieve Diarrhea, Adult Diarrhea can make you feel weak and cause you to become dehydrated. Dehydration is a condition in which there is not enough water or other fluids in the body. It is important to choose the right foods and drinks to: ??? Relieve diarrhea. ??? Replace lost fluids and nutrients. ??? Prevent dehydration. What are tips for following this plan? Relieving diarrhea ??? Avoid foods that make your diarrhea worse. These may include: ? Foods and drinks that are sweetened with high-fructose corn syrup, honey, or sweeteners such as xylitol, sorbitol, and mannitol. Check food labels for these ingredients. ? Fried, greasy, or spicy foods. ? Raw fruits and vegetables. ??? Eat foods that are rich in probiotics. These include foods such as yogurt and fermented milk products. Probiotics can help increase healthy bacteria in your stomach and intestines (gastrointestinal or GI tract). This may help digestion and stop diarrhea. ??? If you have lactose intolerance, avoid dairy products. These may make your diarrhea worse. ??? Take medicine to help stop diarrhea only as told by your health care provider. Replacing nutrients ??? Eat bland, hoze-jf-novkyn foods in small amounts as you are able, until your diarrhea starts toget better. These foods include bananas, applesauce, rice, toast, and crackers. ??? Over time, add nutrient-rich foods as your body tolerates them or as told by your health care provider. These include: ? Well-cooked protein foods, such as eggs, lean meats like fish or chicken without skin, and tofu. ? Peeled, seeded, and soft-cooked fruits and vegetables. ? Low-fat dairy products. ? Whole grains. ??? Take vitamin and mineral supplements as told by your health care provider. Preventing dehydration ??? Start by sipping water or a solution to prevent dehydration (oral rehydration solution, or ORS). This is a drink that helps replace fluids and minerals your body has lost. You can buy an ORS at pharmacies and retail stores. ??? Try to drink at least 8?10 cups (2,000?2,500 mL) of fluid each day to help replace lost fluids.If your urine is pale yellow, you are getting enough fluids. ??? You may drink other liquids in addition to water, such as fruit juice that you have added waterto (diluted fruit juice) or low-calorie sports drinks, as tolerated or as told by your health care provider. ??? Avoid drinks with caffeine, such as coffee, tea, or soft drinks. ??? Avoid alcohol. This information is not intended to replace advice given to you by your health care provider. Make sure you discuss any questions you have with your health care provider. Document Revised: 08/15/2022 Document Reviewed: 08/15/2022 [employer] Patient Education ? 2023 [employer]. Infectious Disease Diarrhea, Adult Diarrhea is when you pass loose and sometimes watery poop (stool) often. Diarrhea can make you feelweak and cause you to lose water in your body (get dehydrated). Losing water in your body can causeyou to: ??? Feel tired and thirsty. ??? Have a dry mouth. ??? Go pee (urinate) less often. Diarrhea often lasts 2?3 days. It can last longer if it is a sign of something more serious. Be sure to treat your diarrhea as told by your doctor. Follow these instructions at home: Eating and drinking Follow these instructions as told by your doctor: ??? Take an ORS (oral rehydration solution). This is a drink that helps you replace fluids and minerals your body lost. It is sold at pharmacies and stores. ??? Drink enough fluid to keep your pee (urine) pale yellow. ? Drink fluids such as: ? Water. You can also get fluids by sucking on ice chips. ? Diluted fruit juice. ? Low-calorie sports drinks. ? Milk. ? Avoid drinking fluids that have a lot of sugar or caffeine in them. These include soda, energy drinks, and regular sports drinks. ? Avoid alcohol. ??? Eat bland, iihl-uv-bbqsif foods in small amounts as you are able. These foods include: ? Bananas. ? Applesauce. ? Rice. ? Low-fat (lean) meats. ? [place]. ? Crackers. ??? Avoid spicy or fatty foods. Medicines ??? Take cron-ihq-rktsvgq and prescription medicines only as told by your doctor. ??? If you were prescribed antibiotics, take them as told by your doctor. Do not stop taking them even if you start to feel better. General instructions ??? Wash your hands often using soap and water for 20 seconds. If soap and water are not available,use hand doll repairer. Others in your home should wash their hands as well. Wash your hands: ? After using the toilet or changing a diaper. ? Before preparing, cooking, or serving food. ? While caring for a sick person. ? While visiting someone in a hospital. ??? Rest at (more content not included)...[facility]12-29-2024 Evaluation + Plan noteExtracted from:Title:ED NoteAuthor:Patrick VICTOR, TimDate: 03/09/24 1. Diarrhea (R19.7: Diarrhea , unspecified) 2. Nausea in adult (R11.0: Nausea) Orders: acetaminophen, 650 mg = 2 tab(s), Tab, Oral, Once, Stop date 03/09/24 22:47:00 EST, STAT, Start date 03/09/24 22:47:00 EST, 03/09/24 22:47:00 EST loperamide, 2 mg = 1 tab(s), Tab, Oral, q4hr, STAT, Start date 03/09/24 23:18:00 EST, 03/09/24 23:18:00 EST loperamide, 2 mg = 1 tab(s), Tab, Oral, Once, Stop date 03/09/24 19:41:00 EST, STAT, Start date 03/09/24 19:41:00 EST, 03/09/24 19:41:00 EST loperamide, 1 tab(s), Chewed, TID for loose stool, 20 tab(s), Refill(s) 0 ondansetron, 4 mg = 1 tab(s), Tab-Dis, Oral, Once, Stop date 03/09/24 23:17:00 EST, STAT, Start date 03/09/24 23:17:00 EST, 03/09/24 23:17:00 EST ondansetron, 4 mg = 1 tab(s), Oral, q8hr, # 6 tab(s), Refills(s) 0 ondansetron, 4 mg = 1 tab(s), Tab-Dis, Oral, Once, Stop date 03/09/24 20:31:00 EST, STAT, Start date 03/09/24 20:31:00 EST, 03/09/24 20:31:00 EST Sodium Chloride 0.9% intravenous solution, 1,000 mL, Soln-IV, IV, Once, Stop date 03/09/24 19:41:00EST, STAT, Start date 03/09/24 19:41:00 EST, Infuse over 61, minute(s) tramadol, 50 mg = 1 tab(s), Tab, Oral, Once, Stop date 03/09/24 22:47:00 EST, STAT, Start date 03/09/24 22:47:00 EST, 03/09/24 22:47:00 EST CBC w/ Auto Diff Clostridium Difficile PCR Comprehensive Metabolic Panel eGFR Enteric Panel by PCR Extra Blue Tube Extra SST Tube Fecal WBC Lactoferrin UA with Cult Rflx UA with Cult Rflx Diagnostic Tests Pending * Clostridium Difficile PCR 03/09/24 * Enteric Panel by PCR 03/09/24 * Fecal WBC Lactoferrin 03/09/24 * UA with Cult Rflx 03/09/24 [facility] 12-09-2024 Evaluation note* Diagnosis Onset Date Resolution Status Admit Date Sinusitis noneactiveDecember 2023 3:55pmSubarachnoid hemorrhageacuteJanuary 2024 10:16amSubdural hematoma caused by concussionacuteJanuary 2024 10:16amMedicare annual wellness visit, subsequentnoneactiveJanuary 2024 10:16am [facility] Work Phone: 1(951) 792-222112-09-2024 Evaluation note* Diagnosis Onset Date Resolution Status Admit Date Sinusitis noneactiveDecember 2023 3:55pmSubarachnoid hemorrhageacuteJanuary 2024 10:16amSubdural hematoma caused by concussionacuteJanuary 2024 10:16amMedicare annual wellness visit, subsequentnoneactiveJanuary 2024 10:16amBilateral carotid artery stenosisacuteFebruary 2024 1:02pmFormer smokeracuteFebruary 2024 1:02pm [facility] Work Phone: 1(259) 196-963611-11-2024 Evaluation note* Diagnosis Onset Date Resolution Status Admit Date Anxiety acuteNovember 2023 2:43pmDifficulty in walkingacuteNovember 2023 2:43pmEssential (primary) hypertensionacuteNovember 2023 2:43pmUrinary incontinenceacuteNovember 2023 2:43pmCoronary artery diseaseacuteNovember 2023 2:38pmEssential (primary) hypertensionacuteNovember 2023 2:38pm Subarachnoid hemorrhageacuteNovember 2023 2:38pmChronic venous hypertensionchronicNovember 2023 2:38pmLymphedema of both lower extremitieschronicNov2023 2:38pmHistory of head injurynoneactive January 22, 2024 2:38pmSinusitisnoneactiveDecember 2023 3:55pm [facility] Work Phone: 1(295) 317-934611-11-2024 Evaluation note* Diagnosis Onset Date Resolution Status Admit Date Anxiety acuteNovember 2023 2:43pmDifficulty in walkingacuteNovember 2023 2:43pmEssential (primary) hypertensionacuteNovember 2023 2:43pmUrinary incontinenceacuteNovember 2023 2:43pmCoronary artery diseaseacuteNovember 2023 2:38pmEssential (primary) hypertensionacuteNovember 2023 2:38pm Subarachnoid hemorrhageacuteNovember 2023 2:38pmChronic venous hypertensionchronicNovember 2023 2:38pmLymphedema of both lower extremitieschronicNov2023 2:38pmHistory of head injurynoneactive January 22, 2024 2:38pmSinusitisnoneactiveDecember 2023 3:55pm Subarachnoid hemorrhageacuteJanuary 2024 10:16amSubdural hematoma caused by concussionacuteJanuary 2024 10:16am [facility] Work Phone: 1(974) 101-373711-01-2024 Evaluation + Plan note Diagnostic Tests Pending * Urine Culture 01/11/24 [facility] 09-04-2024 Telephone encounter Note* Telephone Encounter - Noé Owen RN - 11/14/2023 4:34 PM EDT Returned call today. Left message on VMM that bleed in head has resolved, and tremors are not related to bleed. [id number] Miscellaneous Notes* Telephone Encounter - Noé Owen RN - 11/14/2023 4:34 PM EDT Returned call today. Left message on VMM that bleed in head has resolved, and tremors are not related to bleed. * Telephone Encounter - Noé Owen RN - 11/09/2023 3:13 PM EDT Patient called, no answer. Left message on VMM to return call. Also called Mindi, no answer. Left message on VMM to return call. * Telephone Encounter - Noé Owen RN - 11/09/2023 3:11 PM EDT ----- Message from Artem Li sent at 11/09/2023 8:46 AM EDT ----- Noé, Can you call? The CT showed no bleed. These symptoms are not related. Thanh Kaminski ----- Message ----- From: Khushi Snow Sent: 11/08/2023 4:35 PM EDT To: Artem Li MD; Noé Owen RN Ca, This [facility] primary care office called in stating that she forgot to mention she was also having subtle intention tremors and asked could that be related to the bleed she has. The caregiver's name wasMindi and she left a call back # [phone]. Or if calling the pt would be best she'd like a call back instead. Thank you, Khushi documented in this [id number] Telephone encounter Note* Telephone Encounter - Noé Owen RN - 11/09/2023 3:13 PM EDT Patient called, no answer. Left message on VMM to return call. Also called Mindi, no answer. Left message on VMM to return call. [id number] Telephone encounter Note* Telephone Encounter - Noé Owen RN - 11/09/2023 3:11 PM EDT ----- Message from Artem Li sent at 11/09/2023 8:46 AM EDT ----- Noé, Can you call? The CT showed no bleed. These symptoms are not related. Thanh Kaminski ----- Message ----- From: Khushi Snow Sent: 11/08/2023 4:35 PM EDT To: Artem Li MD; Noé Owen RN Hi, This pts primary care office called in stating that she forgot to mention she was also having subtle intention tremors and asked could that be related to the bleed she has. The caregiver's name wasMindi and she left a call back # [phone]. Or if calling the pt would be best she'd like a call back instead. Thank you, Khushi [id number] Evaluation note* Diagnosis Onset Date Resolution Status Admit Date Subarachnoid hemorrhage acuteAugust 2023 2:04pmBack painnoneactiveAugust 2023 2:04pmTremor noneactiveAugust 2023 2:04pmSubarachnoid hemorrhageacuteSeptember 2023 2:12pmUrinary incontinenceacuteNov2023 2:43pm [facility] Work Phone: 1(728) 151-857008-28-2024 Evaluation note* Diagnosis Onset Date Resolution Status Admit Date Subarachnoid hemorrhage acuteAugust 2023 2:04pmBack painnoneactiveAugust 2023 2:04pmTremor noneactiveAugust 2023 2:04pmSubarachnoid hemorrhageacuteSept2023 2:12pmAnxietyacuteNovember 2023 2:43pmDifficulty in walkingacute January 21, 2024 2:43pmEssential (primary) hypertensionacuteJanuary 21, 2024 2:43pmUrinary incontinenceacuteNov2023 2:43pmCoronary artery diseaseacuteJanuary 22, 2024 2:38pmEssential (primary) hypertensionacute January 22, 2024 2:38pmSubarachnoid hemorrhageacuteJanuary 22, 2024 2:38pm Chronic venous hypertensionchronicJanuary 22, 2024 2:38pmLymphedema of both lower extremitieschronicJanuary 22, 2024 2:38pmHistory of head injury noneactiveJanuary 22, 2024 2:38pm [facility] Work Phone: 1(615) 496-481108-28-2024 History of Present illness Narrative* Artem Li MD - 11/07/2023 9:27 AM EDT Neurosurgery Follow Up Telephone Note 83y F s/p Left katty holes for SDH on 08/14/23 and Left MMA embolization on 08/15/23. Doing well since surgery. Reports no major pain, weakness, fevers, LOC. Reports that the incisions have completely healed. Back to usual activity. Imaging: CT head 10/08/23 OSH: resolved blood products A/P: 83y F s/p Left katty holes for SDH on 08/14/23 and Left MMA embolization on 08/15/23. Doing well since surgery. No need for scheduled follow up. Documentation: Mode: Telephone Patient Patient Work Phone: Patient Cell Preferred phone: [phone] Consent: I confirmed patient understanding of the risks and benefits of telehealth visits and obtained consent to proceed with the telehealth visit. Location of Patient: Home of patient Artem Li MD documented in this [id number] NoteDischarge Summary Admission and Discharge Information Admit Date/Time:10/16/2023 19:44 Admitting Physician - Chandan SMITH DO Admitting Diagnoses: Discharge Diagnoses 1. Fall, 10/16/2023 2. Back pain, 10/16/2023 3. History of subdural hematoma, 10/17/2023 4. Hypoxia, 10/17/2023 5. Coronary artery disease, 10/17/2023 6. HTN, 10/17/2023 7. Hyperlipidemia, 10/17/2023 8. Chronic diastolic heart failure, 10/17/2023 9. Chronic anemia, 10/17/2023 10. Encounter for deep vein thrombosis (DVT) prophylaxis, 10/17/2023 Carly Marcelino is an 83-year-old female with past medical history positive for CAD, hypertension, hyperlipidemia, chronic diastolic heart failure, chronic anemia, and dementia (unspecified) [facility] after a fall at home. She was ambulating with her walker outside, fellbackwards, having a mechanical fall and landing on her back. Her more recent history is positive for recurrent falls and a fairly recent thoracic fracture. More remotely she does have history of subdural hematoma. On arrival to ER, she was hemodynamically stable, no acute distress. Trauma imaging was negative for any acute fractures, did show her chronic thoracic T12 fracture noted to be similar to prior report. Chest CT did show bilateral atelectasis, she does have history of recent admission for pneumonia and is recovering from that and a September hospitalization. Labs without significant abnormality, hemoglobin in the mid tens, however, this is similar to prior trends. Urinalysis was negative. She was admitted to hospitalist service as there were some issues with [place] in [place] patient [place]. Plan was for PT OT evaluation and possible placement. She was placed in the ICU for convenience, not due to acuity Patient remained hemodynamically stable during her stay. PT and OT recommended SNF placement. Daughter did return from [place] and patient and daughter would like patient placed at TCU. She had initially been given oxycodone in the emergency room, however, this did make the patient drowsy and slightly confused. Patient return to her normal baseline mental status eastman. Her pain was controlled withacetaminophen. She remained hemodynamically stable with her chronic blood pressure medications. Shehad no nausea, vomiting, diarrhea or constipation. She had no chest pain or shortness of breath. She had no bleeding issues. She is discharged to TCU in stable condition, on room air. Of note, admitting diagnosis of hypoxia is noted, no respiratory failure. She did have recent hospitalization for pneumonia that is resolving. No acute infection or decompensated heart failure. Likely some atelectasis from immobility, she was easily weaned off of supplemental oxygen through gettingup out of bed and using incentive spirometer. Stage I pressure ulcer to bilateral buttock was documented per nursing, present on admit and managed per protocol wound care orders. As the nurse practitioner I certify that Carly Marcelino is being discharged to a nursing facility directly from hospital after receiving acute patient care at the hospital and requires nursing facility services for the condition for which she has received in the hospital and as the attending provider Icertify no later than the date of discharge to the individual is anticipated to requires fewer than30 days of nursing facility services. Procedure History PCI - Percutaneous coronary intervention (11/24/2021), Eye surgery (2003), Back sx, begnign tumor removal, Bilateral knee sx, bilateral shoulder sx, Breast biopsy sample, left foot reconstruction, pharygeal plasty. Hospital Course Significant Findings (10/08/2023 10:[address] Head or Brain w/o Contrast) IMPRESSION: NO ACUTE INTRACRANIAL PROCESS IDENTIFIED. [1] (10/03/2023 19:[address] Abdomen/Pelvis w/o Contrast) IMPRESSION: No acute traumatic process in the unenhanced abdomen/pelvis. No acute fracture or traumatic malalignment lumbar spine. Opacity right lung base, refer to subsequent CT chest dictation. [2] (10/08/2023 10:[address] Spine Cervical w/o Contrast) IMPRESSION: NO FRACTURE OR EVIDENCE OF CERVICAL SPINE INJURY IDENTIFIED. [3] (10/08/2023 10:[address] Chest w/ Contrast) IMPRESSION: MILDLY DISPLACED T12 VERTEBRAL BODY FRACTURE. MILDLY ENLARGING SMALL RIGHT PLEURAL EFFUSION. PROBABLY MINIMALLY IMPROVING PREDOMINANTLY RIGHT MIDDLE LOBE BRONCHOPNEUMONIA. A FOLLOW-UP CT IN 2-3 MONTHS IS SUGGESTED. OTHERWISE, NO SIGNIFICANT CHANGE FROM RECENT PRIOR STUDIES. [4] Services Consulted Consult to General Surgery - Ordered -- 10/16/23 15:51:00 EDT, Stat, Trauma, Consult and Co-manage Physical Exam Vitals & Measurements T: 36.6 ?C(Oral) TMIN: 36.6 ?C(Oral) TMAX: 36.7 ?C(Oral) HR: 61(Monitored) RR: 15 BP: 168/80 SpO2: 93% WT: 85.8 kg General: Alert, calm, NAD Head: Normocephalic/atraumatic Eyes: PERRLA. HEENT: Mucous membrane pink, moist, Normal tongue. Neck: supple, no JVD, no bruit Riri (more content not included)...[facility]: Result Comment: Electronically Signed By: Lima Bean CNP\.br\Date and Time Signed: 10/22/23 10:02 EDT\.br\Electronically Co-Signed By: Lima Bean CNP\.br\Date and Time Co-Signed: 10/22/23 10:18 EDT\.br\Electronically Co-Signed By: Barrett Bales DO\.br\Date and Time Co-Signed: 10/29/23 07:04 [id number] NoteProgress Note-Nurse PATIENT UPDATE Patient admitted earlier this am- see Dr Brooks Lawrence. She is currently in ICU for bed convenience. She has been hemodynamically stable- a little hypertensive and home medications are resumed. She is confused to place, knows her name/ and month/year. She re-orients easily. PT/OT have seen and evaluated, recommending SNF. Labs for am ordered.[facility]08-07-2024 Evaluation + Plan note Extracted from:Title:Admission H & PAuthor:Chandan SMITH DO ADate:10/17/23 1. Fall (W19.XXXA: Unspecifi ed fall, initial encounter) I am unable to get extensive history from patient due to her limited participation in historical retrieval. Question of volitional versus if sales representative aircraft of encephalopathy. Note patient has had several previous admissions with acute change in mental status many of those occurring after she had experienced an subdural hematoma, remotely attributed to hyponatremia, when admitted on 10/01/2023 she was being treated for pneumonia. Unable to definitively identify home medications therefore the med reconciliation has not been completed. However review of the external pharmacy report does suggest a prescription for benzodiazepines. Will avoid benzodiazepines at this time in a patient with frequent falls and of advanced age with previous presentations of acute encephalopathy. Noted on this admission however toxicology screen is negative for benzodiazepines. Question role of her present response to questions after admission the influence of oxycodone she was given in the emergency department as other. FTs are within normal limits recent hospitalization TSH was within normal limits as well as vitamin B12. Regarding risk for falls will monitor for any arrhythmia. Will monitor patient's blood pressure response. Await confirmation of other home medications such as ? Gabapentin. Note review o f pharmacy report suggest prescription for Keppra which more recent documentation states she is no longer taking. Question if this had been given prophylactically when she had her history of subduralhematomas. Will consult with physical therapy to ensure her safety 2. Back pain (M54.9: Dorsalgia, unspecified) Per ER documentation. Patient does not appear to be in any pain. When asking if she was having any pain she was minimally verbally responsive at that point alert and did not respond in the affirmative. Note patient has had recent presentation on 07 October after a fall was found to have T12 compression fractures and had been sent to [facility] which we do not have access to records of. 3. History of subdural hematoma (Z86.79: Personal history of other diseases of the circulatory system) As suggested above more than 1 occasion i.e. in April felt to be spontaneous while on Eliquis and Plavix, then in July after a fall then finally in August. Began this occasion demonstrated no acute intracranial process 4. Hypoxia (R09.02: Hypoxemia) After evaluating the patient and reviewing the chart it was noted that the patient presented without hypoxia on room air was 1 recording of 88%. Patient does not appear to be distressed. Do not suspect significant volume overload despite history below. CT imaging demonstrated small pleural effusions demonstrated atelectasis which is my suspicion with the drop in sats perhaps after receiving narcotic analgesics. There was documentation of a right lung nodule felt to be a change from previous andfelt to be infectious versus inflammatory. Patient is without fever, no leukocytosis. Will attempt to wean patient's O2 in the a.m. With history of below will not administer IV fluids especially as patient is not prerenal and not hypotensive 5. Coronary artery disease (I25.10: Atherosclerotic heart disease of [place] coronary artery withoutangina pectoris) Prior med list suggest the patient have been on metoprolol, and aspirin await confirmation of meds and doses. 6. HTN (I10: Essential (primary) hypertension) Patient has had fluctuating blood pressures usually high when she awakens. With frequent falls it is uncertain if patient has increased instability with lower perhaps even normal blood pressures however wish to avoid accelerated hypertension with her prior history of subdural hematomas 1 occasion not after a fall. Med list includes Cipro and metoprolol from recent presentations await confirmationof dosing. Meanwhile we will order Lopressor as needed systolic blood pressure greater than 180 7. Hyperlipidemia (E78.5: Hyperlipidemia, unspecified) Patient had been on pravastatin await confirmation of med and dosing 8. Chronic diastolic heart failure (I50.32: Chronic diastolic (congestive) heart failure) Note patient was seen by Dr. Wallace when patient was admitted in July 2022 per his consultation wasno documentation of a history of congestive heart failure. Reviewing echocardiogram from November 24, 2021 patient had mild elevation in right ventricular systolic pressure of 36 and stated stage I diastolic dysfunction. Patient does have leg edema bilaterally question if pulmonary pressures have elevated, question of venous insufficiency. Note CT imaging demonstrates only small bilateral pleural effusions no reports of any pulmonary edema. When previously treated with diuretics empirically patient would present with hyponatremia. Will monitor patient's pulse oximetry monitor inputs and outputs and daily weights. Will avoid administering IV fluids 9. Chronic anemia (D64.9: Anemia, unspecified) Patient did have recent B12 of 677, folate within normal limits during her hospitalization in September 10. Encounter for deep vein thrombosis (DVT) prophylaxis (Z29.9: Encounter for prophylactic measures, unspecified) Use SCDs for now Orders: Capillary Glucose POC Oxygen Protocol Place in Status Will admit patient as a general inpatient the anticipation she required 2 midnight stay Future Appointments Appointment Date:10/19/2023 09:20:00 AM Scheduled Provider:Royce TELLEZ MD Location:Extended Care Appointment Type:[facility] 08-07-2024 NoteInterdisciplinary Note - PT PT Evaluation completed with an AM-PAC six clicks score of 17/24. Pt. seated in recliner upon approach. Pt. completes sit<>stand transfers with [place] from recliner. Pt. able to ambulate 6 ft. with FWW and CGA with heavy reliance on FWW. Noted shuffling gait and significant fatigue with basic functional mobility. Recommend SNF based on today's level of function. PT will follow daily to progress and make updated recommendations.[facility] 10-17-2023 NoteHistory and Physical Basic Information Admit Date/Time:10/16/2023 19:44 Chief Complaint pt to ER with c/o lower back pain after a fall today around 1530. denies any neck pain or headstrike. pt states had a fall a couple weeks ago with a low back fracture. denies any blood thinners History of Present Illness Patient is an 83-year-old white female with significant past medical history and that per review ofthe chart of a spontaneous subdural hematoma when she presented to the emergency department in May 03 of this year she was on Plavix and Eliquis. Eliquis was reversed and patient was transferredto a tertiary care center. On 07 August after falling and striking her head evaluation determined again there was noted subdural hematoma with shift patient was once again transferred to tertiary care center per review of meds at that time she had only been on aspirin. On August 15 patient had return 2 weeks after being discharged from [facility] [place] with confusion. Imaging had demonstrated acute on chronic subdural hematoma with a shift. For the third time patient was transferred to a tertiary care center. Patient's most recent hospitalization was on 03 October she presented with a change in mental status shewas found by family to have been leaning to the right. She was evaluated was diagnosed with right middle lobe pneumonia placed on antimicrobials and discharged on 7 additional days of doxycycline on the . On she returned after being found on the floor by home health there is no report of any change in mental status she was complaining of back pain imaging had demonstrated a T12 fracture and patient was transferred to [facility] to be evaluated by spine surgeon. Patient did have 1 hospitalization on 10 July where she was evaluated for hyponatremia. This was felt to be due to hydrochlorothiazide spironolactone and increase fluid intake. Diuretics were discontinued. Chart suggest a history of seizure disorder, cannot find specifics upon review of multiple recent documentations. I did look on the external pharmacy report jesting that patient had received 90 on 19 June subsequentdocumentation suggest she is no longer taking Keppra question if it was instituted after her original diagnosis of subdural hematoma. Per review of the chart patient struggles with anxiety as that her daughter had recently been diagnosed with breast carcinoma and her son had recently committed suicide. Patient does have hypertension, hyperlipidemia. Chart suggest a history of chronic diastolic heart failure when reviewing Dr. Wallace's consultation in July 2022 there was no reports of any history of congestive heart failure. Review of an echocardiogram from 11/24/2021 demonstrated normal left-ve ntricular ejection fraction of 65% mild left atrial dilation, right ventricular systolic pressure of 36 and stage I diastolic dysfunction. During that hospitalization she had presented with change inmental status she was hypokalemic hyponatremic with acute kidney injury she had been on Bumex. Patient presented the emergency department with below As patient is minimally verbal which would be described below predominance of patient's history wasobtained on the initial report from the emergency religion department chair and from review of the documentation which is copied and pasted below 83-year-old female comes to the ED for evaluation of injury status post fall. The patient states she was walking with her walker outside when she fell backwards. This sounds have been a mechanical fall. She fell landing on her back. She has a history of recurrent falls and recently suffered a thoracic fracture. She complains of pain primarily to the low back at this time. She does not believe shestruck her head or any loss of consciousness. She denies any neck chest or abdominal pain. No shortness of breath. She does not believe she takes any anticoagulation. When interviewing patient in the intensive care unit for patient convenience due to lack of floor medical beds patient open her eyes. She weakly participated in the neurologic examination but comprehended instructions. Initially she was very weakly with one-word answers assisting with the historical perspective and that she denied any history of CHF. She did shake her head when asked if she has had bleeding in her brain as well but the rest of the evaluation though she was establishing eye contact and following some instructions during her neurologic examination Note there was concern in the emergency department patient's stability of gait they were considering discharge to home but the daughter with whom she lives, though other reports I have received is that patient lives at home alone, was unfortunately stuck in [place] with the extreme weather conditions testing there and cannot get home. Thus a decision was made to admit the patient Review of Systems Unable to obtain significant history other than what is present above Scoring [place] Fall Risk Score: 60 High (10/17/23) Physical Exam (more content not included)...[facility] on above:Result Comment: Electronically Signed By: Chandan SMITH DO\.br\Date and Time Signed: 10/17/23 02:21 [id number] Hospital Discharge instructions Patient Education 10/16/2023 20:43:39 Fall Prevention in the Home, Adult Fall Prevention in the Home, Adult Falls can cause injuries and affect people of all ages. There are many simple things that you can do to make your home safe and to help prevent falls. Ask for help when making these changes, if needed. What actions can I take to prevent falls? General instructions Use good lighting in all rooms. Replace any light bulbs that burn out, turn on lights if it is dark, and use night-lights. Place frequently used items in gjjx-by-kayij places. Lower the shelves around your home if necessary. Set up furniture so that there are clear paths around it. Avoid moving your furniture around. Remove throw rugs and other tripping hazards from the floor. Avoid walking on wet floors. Fix any uneven floor surfaces. Add color or contrast paint or tape to grab bars and handrails in your home. Place contrasting color strips on the first and last steps of staircases. When you use a stepladder, make sure that it is completely opened and that the sides and supports are firmly locked. Have someone hold the ladder while you are using it. Do not climb a closed stepladder. Know where your pets are when moving through your home. What can I do in the bathroom? Keep the floor dry. Immediately clean up any water that is on the floor. Remove soap buildup in the tub or shower regularly. Use nonskid mats or decals on the floor of the tub or shower. Attach bath mats securely with double-sided, nonslip rug tape. If you need to sit down while you are in the shower, use a plastic, nonslip stool. Install grab bars by the toilet and in the tub and shower. Do not use towel bars as grab bars. What can I do in the bedroom? Make sure that a bedside light is easy to reach. Do not use oversized bedding that reaches the floor. Have a firm chair that has side arms to use for getting dressed. What can I do in the kitchen? Clean up any spills right away. If you need to reach for something above you, use a sturdy step stool that has a grab bar. Keep electrical cables out of the way. Do not use floor north korean or wax that makes floors slippery. If you must use wax, make sure that it is non-skid floor wax. What can I do with my stairs? Do not leave any items on the stairs. Make sure that you have a light switch at the top and the bottom of the stairs. Have them installedif you do not have them. Make sure that there are handrails on both sides of the stairs. Fix handrails that are broken or loose. Make sure that handrails are as long as the staircases. Install non-slip stair treads on all stairs in your home. Avoid having throw rugs at the top or bottom of stairs, or secure the rugs with carpet tape to prevent them from moving. Choose a carpet design that does not hide the edge of steps on the stairs. Check any carpeting to make sure that it is firmly attached to the stairs. Fix any carpet that is loose or worn. What can I do on the outside of my home? Use bright outdoor lighting. Regularly repair the edges of walkways and driveways and fix any cracks. Remove high doorway thresholds. Trim any shrubbery on the main path into your home. Regularly check that handrails are securely fastened and in good repair. Both sides of all steps should have handrails. Install guardrails along the edges of any raised decks or porches. Clear walkways of debris and clutter, including tools and rocks. Have leaves, snow, and ice cleared regularly. Use sand or salt on walkways during winter months. In the garage, clean up any spills right away, including grease or oil spills. What other actions can I take? Wear closed-toe shoes that fit well and support your feet. Wear shoes that have rubber soles or lowheels. Use mobility aids as needed, such as canes, walkers, scooters, and crutches. Review your medicines with your health care provider. Some medicines can cause dizziness or changesin blood pressure, which increase your risk of falling. Talk with your health care provider about other ways that you can decrease your risk of falls. Thismay include working with a physical therapist or computer technology trainer to improve your strength, balance, and endurance. Where to find more information Centers for Disease Control and Prevention, [place]: www.cdc.gov National [place] on Aging: www.roxana.nih.gov Contact a health care provider if: You are afraid of falling at home. You feel weak, drowsy, or dizzy at home. You fall at home. Summary There are many simple things that you can do to make your home safe and to help prevent falls. Ways to make your home safe include removing tripping hazards and installing grab bars in the bathroom. Ask for help when making these changes in your home. This information is not intended to replace advice given to you by your health care provider. Make sure you discuss any questions you have with your health care provider. Document Revised: 11/28/2021 Document Reviewed: 09/29/2020 [employer] Patient Education 2022 [employer]. Follow Up Care 10/16/2023 15:47:24 With:HARDEEP MCKENZIE Address: [address] [address]- Business (1) When:10/19/2023 18:09:01 [facility] 08-06-2024 NoteED Patient Education Note Caregiving Fall Prevention in the Home, Adult Falls can cause injuries and affect people of all ages. There are many simple things that you can do to make your home safe and to help prevent falls. Ask for help when making these changes, if needed. What actions can I take to prevent falls? General instructions ? Use good lighting in all rooms. Replace any light bulbs that burn out, turn on lights if it is dark, and use night-lights. ? Place frequently used items in tcof-nk-iipyz places. Lower the shelves around your home if necessary. ? Set up furniture so that there are clear paths around it. Avoid moving your furniture around. ? Remove throw rugs and other tripping hazards from the floor. ? Avoid walking on wet floors. ? Fix any uneven floor surfaces. ? Add color or contrast paint or tape to grab bars and handrails in your home. Place contrasting color strips on the first and last steps of staircases. ? When you use a stepladder, make sure that it is completely opened and that the sides and supportsare firmly locked. Have someone hold the ladder while you are using it. Do not climb a closed stepladder. ? Know where your pets are when moving through your home. What can I do in the bathroom? ? Keep the floor dry. Immediately clean up any water that is on the floor. ? Remove soap buildup in the tub or shower regularly. ? Use nonskid mats or decals on the floor of the tub or shower. ? Attach bath mats securely with double-sided, nonslip rug tape. ? If you need to sit down while you are in the shower, use a plastic, nonslip stool. ? Install grab bars by the toilet and in the tub and shower. Do not use towel bars as grab bars. What can I do in the bedroom? ? Make sure that a bedside light is easy to reach. ? Do not use oversized bedding that reaches the floor. ? Have a firm chair that has side arms to use for getting dressed. What can I do in the kitchen? ? Clean up any spills right away. ? If you need to reach for something above you, use a sturdy step stool that has a grab bar. ? Keep electrical cables out of the way. ? Do not use floor north korean or wax that makes floors slippery. If you must use wax, make sure that itis non-skid floor wax. What can I do with my stairs? ? Do not leave any items on the stairs. ? Make sure that you have a light switch at the top and the bottom of the stairs. Have them installed if you do not have them. ? Make sure that there are handrails on both sides of the stairs. Fix handrails that are broken or loose. Make sure that handrails are as long as the staircases. ? Install non-slip stair treads on all stairs in your home. ? Avoid having throw rugs at the top or bottom of stairs, or secure the rugs with carpet tape to prevent them from moving. ? Choose a carpet design that does not hide the edge of steps on the stairs. ? Check any carpeting to make sure that it is firmly attached to the stairs. Fix any carpet that isloose or worn. What can I do on the outside of my home? ? Use bright outdoor lighting. ? Regularly repair the edges of walkways and driveways and fix any cracks. ? Remove high doorway thresholds. ? Trim any shrubbery on the main path into your home. ? Regularly check that handrails are securely fastened and in good repair. Both sides of all steps should have handrails. ? Install guardrails along the edges of any raised decks or porches. ? Clear walkways of debris and clutter, including tools and rocks. ? Have leaves, snow, and ice cleared regularly. ? Use sand or salt on walkways during winter months. ? In the garage, clean up any spills right away, including grease or oil spills. What other actions can I take? ? Wear closed-toe shoes that fit well and support your feet. Wear shoes that have rubber soles or low heels. ? Use mobility aids as needed, such as canes, walkers, scooters, and crutches. ? Review your medicines with your health care provider. Some medicines can cause dizziness or changes in blood pressure, which increase your risk of falling. Talk with your health care provider about other ways that you can decrease your risk of falls. Thismay include working with a physical therapist or computer technology trainer to improve your strength, balance, and endurance. Where to find more information ? Centers for Disease Control and Prevention, [place]: www.cdc.gov ? National [place] on Aging: www.roxana.nih.gov Contact a health care provider if: ? You are afraid of falling at home. ? You feel weak, drowsy, or dizzy at home. ? You fall at home. Summary ? There are many simple things that you can do to make your home safe and to help prevent falls. ? Ways to make your home safe include removing tripping hazards and installing grab bars in the bathroom. ? Ask for help when making these changes in your home. This information is not intended to replace advice gi (more content not included)...[facility]08[facility] NoteMicrobiology PROCEDURE: Blood Culture Charcoal [R1] SOURCE: Blood BODY SITE: Hand L COLLECTED DATE/TIME: 10/03/2023 20:53 EDT RECEIVED DATE/TIME: 10/03/2023 23:10 EDT START DATE/TIME: 10/03/2023 23:10 EDT FREE TEXT SOURCE: Ashley Mera, Reshma Ramirez M.D., Reshma Jugn FINAL REPORTS Final Report [] Verified Date/Time: 10/11/2023 00:00 EDT No growth at 7 days. Performing Locations R1: This test was performed at: [facility], [address] [place] [address], [address] [place] [address], YztavnAvita [facility] Bu[facility] HospitalComment on above:Performed By: #### [id number] #### [address] [id number] NoteMicrobiology PROCEDURE: Blood Culture Charcoal [R1] SOURCE: Blood BODY SITE: Hand R COLLECTED DATE/TIME: 10/03/2023 20:59 EDT RECEIVED DATE/TIME: 10/03/2023 23:11 EDT START DATE/TIME: 10/03/2023 23:11 EDT FREE TEXT SOURCE: Ashley Mera, Reshma Ramirez M.D., Reshma Jung FINAL REPORTS Final Report [] Verified Date/Time: 10/11/2023 00:00 EDT No growth at 7 days. Performing Locations R1: This test was performed at: [facility], [address] [place] [address], [id number] , [place], OfpbsdAvita Health System Bu[facility] HospitalComment on above:Performed By: #### [id number] #### [facility] [address] [place] [address] [id number] Emergency department Note* Lara Lott RN - 10/09/2023 2:29 AM EDT DM ambulance set up @0100 for patient to go home ([facility]), DM denied taking patient home and stated they did not have verification that the patient could get in her home despite her telling the staff that she had a kuo at home. Patient refused to call daughter, which DM insisted she do as verification. DM cancelled the first ambulance request / refused to take patient home. Patient got ahold of her daughter 10 minutes after DM ambulance left. Charge nurse aware. 2nd attempt at setting up DM ambulance request home done @0228. Charge nurse aware. [id number] Emergency department Note* Lara Lott RN - 10/09/2023 2:29 AM EDT DM ambulance set up @0100 for patient to go home ([facility]), DM denied taking patient home and stated they did not have verification that the patient could get in her home despite her telling the staff that she had a kuo at home. Patient refused to call daughter, which DM insisted she do as verification. DM cancelled the first ambulance request / refused to take patient home. Patient got ahold of her daughter 10 minutes after DM ambulance left. Charge nurse aware. 2nd attempt at setting up DM ambulance request home done @0228. Charge nurse aware. * Rain Ervin RN - 10/08/2023 5:51 PM EDT 84 F fall from standing. Transfer from [facility] known T 12 fracture. documented in this [id number] History of Present illness Narrative* Hina Wayne MD - 10/09/2023 12:56 AM EDT Images from the original note were not included. [facility] Department of Surgery Division of Trauma Surgery, Acute Care Surgery, Critical Care, and Gregory CARE PLAN UPDATE Carly Marcelino [id number] 10/08/2023 ortho spine recs: - No indication for acute Orthopaedic Spine Surgical intervention at this time - Weightbearing status: WBAT - Antibiotics: None from orthopaedic standpoint - Diet: Okay for diet from orthopaedic standpoint - Follow up with Dr. Gracia in clinic in 2 weeks - Pain control per ED - Dispo per ED Trauma surgery signing off. Dispo per ED. Hina Wayne MD Trauma Surgery documented in this [id number] Hospital Discharge instructions* Discharge Instructions* Jigar Victor MD - 10/09/2023 12:20 AM EDT Back Injury Instructions: Return to the ED if you have weakness or numbness in your arms or legs, you are unable to control your bowels or bladder, or you are unable to walk or if you have worsening pain in your back. Procedures done during this visit: None * Attachments The following attachments cannot be sent through Care Everywhere. * Preventing Falls in the Older Adult (Haitian) documented in this [id number] History of Present illness Narrative* Carla Rodriguez LSW - 10/08/2023 6:45 PM EDT CAT 2 Pt is an 83yo F presenting to ED via [facility] as transfer from [facility] s/p fall, -LOC, -thinners, T12 fracture. Per EMS, pt has been having frequent falls, most recently falling this morning, landing on her back. Pt was transported to [facility] and diagnosed with T12 fracture. Pt was recently discharged after hospitalization for pneumonia. Of note per EMS request, pt has a bag of clothing with her, which contains a container holding pt'snecklace. SCOTT called pt's daughter Hebert Alvarez [phone] to provide update on pt status. SCOTT facilitated call between pt and Hebert. Pt has her phone and will continue to keep family updated. PLAN: Pending. ILIANA Coker, PROJECT ENGINEERING DIRECTOR, [place] ED Glass Installer Technician documented in this [id number] Emergency department Note* Rain Ervin, RN - 10/08/2023 5:51 PM EDT 84 F fall from standing. Transfer from [facility] known T 12 fracture. [id number] NoteConsultation Note TRAUMA CONSULT / H&P Patient Name: CARLY MARCELINO Admission Date: 10/08/2023 09:38:49 Chief Complaint: T12 compression fracture Patient seen and examined on 10/08/2023 15:30 BASIC INJURY INFORMATION: Level of activation: Category 2 Trauma Mode of transport: EMS Mechanism of injury: Ground level fall Complicating features: Not applicable Protective measures: Not applicable HISTORY OF PRESENT IN[facility]URY[facility] 83 [facility] who presented after a ground level fall this morning. Her legs tripped on something and she fell primarily on her left side. She was eventually able to ambulatewas down on the floor for approximately one hour. She does not report LOC. She has chronic back pain which was aggrevated with the fall, however, at the time of examination the pain had resolved. Sheunderwent CT imaging that demonstrated a T12 vertebral body compression fracture. PRIMARY SURVEY: Airway: Intact Breathing: Normal Breath Sounds: Breath sounds equal bilaterally. Circulation: Pulses: Normal Skin: Warm, Dry Normal skin color, texture, and turgor. No rashes or lesions. Disability: Pupils: PEERL GCS: Best Eyes: 4 Best Verbal: 5 Best Motor: 6 Total: 15 SECONDARY SURVEY: Vital Signs (last 24 hrs) Last Charted Temp Oral 36.7 DegC (OCT 07 14:00) Heart Rate Monitored 63 bpm (OCT 07 14:55) Resp Rate 16 br/min (OCT 07:55) SBP H 151 mmHg (OCT 07 14:55) DBP 76 mmHg (OCT 07 14:55) Weight 85.7 kg (OCT 07 09:44) BMI 29.65 (OCT 07 09:44) Neurologic: Alert and oriented, appropriate, moves all extremities. Strength symmetrical, no sensory deficits. HEENT: Head: No lacerations, bony step-offs, or abrasions; midface stable to palpation. Nose: Septum midline, no crepitus with motion. No bloody drainage. Throat: Oral cavity without trauma. No malocclusion Neck: No midline tenderness. No step off or deformities. No lacerations/wounds. C-collar not in place Pulmonary: External exam: No crepitus or pain with palpation; no abrasions or contusions. Lung exam: Breath sounds clear, symmetrical; no wheezes, rales or consolidation. Cardiovascular: Pulses: Bilateral radial, femoral, DP and PT pulses are normal Abdomen: Appearance: Non-distended, no scars, lacerations, contusions. Palpation: No tenderness. Noperitonitis. Rectal: Rectal tone not examined. No gross blood noted. Pelvis/Perineum: Pelvis is stable to palpation. Musculoskeletal: Back/Spine: Thoracolumbar spinal column non tender. No step off or deformity noted. Extremities: No gross upper or lower extremity deformities. PAST MEDICAL HISTORY: No qualifying data available. PAST SURGICAL HISTORY: PCI - Percutaneous coronary intervention: 11/24/21 Eye surgery, Left: 2003 Bilateral knee sx Back sx bilateral shoulder sx begnign tumor removal Breast biopsy sample left foot reconstruction pharygeal plasty PRE-ADMISSION MEDICATIONS: acetaminophen: 650 mg = 2 tab(s), Oral, q6hr, PRN (Pain) albuterol: 2 puff(s), Inhalation, q6hr, PRN (Wheezing) amoxicillin-clavulanate: 1 tab(s), Oral, q12hr aspirin: 81 mg = 1 tab(s), Oral, Daily baclofen: 5 mg, Oral, Bedtime, 1/2 of a 10 mg tab cetirizine: 10 mg, Oral, Daily, PRN (Allergy symptoms) docusate: 100 mg = 1 cap(s), Oral, BID, TAKE 1 CAPSULE BY MOUTH TWICE DAILY doxycycline: 100 mg = 1 tab(s), Oral, q12hr famotidine: 40 mg = 1 tab(s), Oral, Daily ferrous sulfate: 325 mg = 1 tab(s), Oral, Daily Fish Oil: 1 cap(s), Oral, Bedtime gabapentin: 300 mg = 1 cap(s), Oral, TID guaifenesin: 1,200 mg = 2 tab(s), Oral, BID levetiracetam: 500 mg, Bedtime lisinopril: 20 mg = 1 tab(s), Oral, Daily lorazepam: 0.5 mg = 1 tab(s), Oral, TID losartan: 50 mg = 1 tab(s), Oral, Daily magnesium oxide: 400 mg = 1 tab(s), Oral, Bedtime metoprolol: 12.5 mg = 0.5 tab(s), Oral, BID montelukast: 10 mg = 1 tab(s), Oral, Daily multivitamin with minerals pravastatin: 40 mg = 1 tab(s), Oral, Daily, at bedtime ALLERGIES: Allergies (7) Active Severity Reaction hydroCHLOROthiazide Severe Hyponatremia Depakote None Documented Dilantin None Documented labetalol None Documented Norvasc None Documented Procardia None Documented TEGretol None Documented SOCIAL HISTORY: Social & Psychosocial History Social History Alcohol Low Risk Comment: jamir (10/08/2023 09:55 - Manny GONZALEZ, Gavin Jung) Current, Beer, 1-2 times per year Current Comment: jamir (04/29/2018 07:05 - Sunitha GONZALEZ, Damien Katherine) Current, Beer, 1-2 times per month, Alcohol use interferes with work or home: No. Drinks more than intended: No. Others hurt by drinking: No. Ready to change: No. Household alcohol concerns: No. Comment: Pt states has a beer on occasion, wh (more content not included)... [facility] HospitalComment on above:Result Comment: Electronically Signed By: Blayne VICTOR, Bolivar Perez\.br\Date and Time Signed: 10/08/23 16:18 EDT 10-06-2023 Hospital Discharge instructions Patient Education 10/06/2023 12:48:30 Managing Your Hypertension Managing Your Hypertension Hypertension, also called high blood pressure, is when the force of the blood pressing against the butcher of the arteries is too strong. Arteries are blood vessels that carry blood from your heart throughout your body. Hypertension forces the heart to work harder to pump blood and may cause the arteries to become narrow or stiff. Understanding blood pressure readings A blood pressure reading includes a higher number over a lower number: The first, or top, number is called the systolic pressure. It is a measure of the pressure in your arteries as your heart beats. The second, or bottom number, is called the diastolic pressure. It is a measure of the pressure in your arteries as the heart relaxes. For most people, a normal blood pressure is below 120/80. Your personal target blood pressure may vary depending on your medical conditions, your age, and other factors. Blood pressure is classified into four stages. Based on your blood pressure reading, your health care provider may use the following stages to determine what type of treatment you need, if any. Systolic pressure and diastolic pressure are measured in a unit called millimeters of mercury (mmHg). Normal Systolic pressure: below 120. Diastolic pressure: below 80. Elevated Systolic pressure: 120 129. Diastolic pressure: below 80. Hypertension stage 1 Systolic pressure: 130 139. Diastolic pressure: 80 89. Hypertension stage 2 Systolic pressure: 140 or above. Diastolic pressure: 90 or above. How can this condition affect me? Managing your hypertension is very important. Over time, hypertension can damage the arteries and decrease blood flow to parts of the body, including the brain, heart, and kidneys. Having untreated or uncontrolled hypertension can lead to: A heart attack. A stroke. A weakened blood vessel (aneurysm). Heart failure. Kidney damage. Eye damage. Memory and concentration problems. Vascular dementia. What actions can I take to manage this condition? Hypertension can be managed by making lifestyle changes and possibly by taking medicines. Your health care provider will help you make a plan to bring your blood pressure within a normal range. You may be referred for counseling on a healthy diet and physical activity. Nutrition Eat a diet that is high in fiber and potassium, and low in salt (sodium), added sugar, and fat. An example eating plan is called the DASH diet. DASH stands for Dietary Approaches to Stop Hypertension. To eat this way: ?Eat plenty of fresh fruits and vegetables. Try to fill one-half of your plate at each meal with fruits and vegetables. ?Eat whole grains, such as whole-wheat pasta, brown rice, or whole-grain bread. Fill about one-fourth of your plate with whole grains. ?Eat low-fat dairy products. ?Avoid fatty cuts of meat, processed or cured meats, and poultry with skin. Fill about one-fourth of your plate with lean proteins such as fish, chicken without skin, beans, eggs, and tofu. ?Avoid pre-made and processed foods. These tend to be higher in sodium, added sugar, and fat. Reduce your daily sodium intake. Many people with hypertension should eat less than 1,500 mg of sodium a day. Lifestyle Work with your health care provider to maintain a healthy body weight or to lose weight. Ask what an ideal weight is for you. Get at least 30 minutes of exercise that causes your heart to beat faster (aerobic exercise) most days of the week. Activities may include walking, swimming, or biking. Include exercise to strengthen your muscles (resistance exercise), such as weight lifting, as part of your weekly exercise routine. Try to do these types of exercises for 30 minutes at least 3 days aweek. Do not use any products that contain nicotine or tobacco. These products include cigarettes, chewing tobacco, and vaping devices, such as e-cigarettes. If you need help quitting, ask your health careprovider. Control any long-term (chronic) conditions you have, such as high cholesterol or diabetes. Identify your sources of stress and find ways to manage stress. This may include meditation, deep breathing, or making time for fun activities. Alcohol use Do not drink alcohol if: ?Your health [...] oz glass of hard liquor (44 mL). Medicines Your health care provider may prescribe medicine if lifestyle changes are not enough to get your blood pressure under control and if: Your systolic blood pressure is 130 or higher. Your diastolic blood pressure is 80 or higher. Take medicines only as told by your health care provider. Follow the directions carefully. Blood pressure medicines must be taken as told by your health care provider. The medicine does not work as well when you skip doses. Skipping doses also puts you at risk for problems. Monitoring Before you monitor your blood pressure: Do not smoke, drink caffeinated beverages, or exercise within 30 minutes before taking a measurement. Use the bathroom and empty your bladder (urinate). Sit quietly for at least 5 minutes before taking measurements. Monitor your blood pressure at home as told by your health care provider. To do this: Sit with your back straight and supported. Place your feet flat on the floor. Do not cross your legs. Support your arm on a flat surface, such as a table. Make sure your upper arm is at heart level. Each time you measure, take two or three readings one minute apart and record the results. You may also need to have your blood pressure checked regularly by your health care provider. General information Talk with your health care provider about your diet, exercise habits, and other lifestyle factors that may be contributing to hypertension. Review all the medicines you take with your health care provider because there may be side effects or interactions. Keep all follow-up visits. Your health care provider can help you create and adjust your plan for managing your high blood pressure. Where to find more information National Heart, Lung, and Blood [place]: www.nhlbi.nih.gov [place] [employer]: www.heart.org Contact a health care provider if: You think you are having a reaction to medicines you have taken. You have repeated (recurrent) headaches. You feel dizzy. You have swelling in your ankles. You have trouble with your vision. Get help right away if: You develop a severe headache or confusion. You have unusual weakness or numbness, or you feel faint. You have severe pain in your chest or abdomen. You vomit repeatedly. You have trouble breathing. These symptoms may be an [...] pressure is less than 120/80. Hypertension is managed by lifestyle changes, medicines, or both. Lifestyle changes to help manage hypertension include losing weight, eating a healthy, low-sodium diet, exercising more, stopping smoking, and limiting alcohol. This information is not intended to replace advice given to you by your health care provider. Make sure you discuss any questions you have with your health care provider. Document Revised: 11/10/2021 Document Reviewed: 11/10/2021 [employer] Patient Education 2022 [employer]. 10/06/2023 12:47:43 Fall Prevention in the Home, Adult, Hwvt-br-Vyis Fall Prevention in the Home, Adult Falls can cause injuries and can happen to people of all ages. There are many things you can do to make your home safe and to help prevent falls. Ask for help when making these changes. What actions can I take to prevent falls? General Instructions Use good lighting in all rooms. Replace any light bulbs that burn out. Turn on the lights in dark areas. Use night-lights. Keep items that you use often in jtda-gu-jijrz places. Lower the shelves around your home if needed. Set up your furniture so you have a clear path. Avoid moving your furniture around. Do not have throw rugs or other things on the floor that can make you trip. Avoid walking on wet floors. If any of your floors are uneven, fix them. Add color or contrast paint or tape to clearly robert and help you see: ?Grab bars or handrails. ?First and last steps of staircases. ?Where the edge of each step is. If you use a stepladder: ?Make sure that it is fully opened. Do not climb a closed stepladder. ?Make sure the sides of the stepladder are locked in place. ?Ask someone to hold the stepladder while you use it. Know where your pets are when moving through your home. What can I do in the bathroom? Keep the floor dry. Clean up any water on the floor right away. Remove soap buildup in the tub or shower. Use nonskid mats or decals on the floor of the tub or shower. Attach bath mats securely with double-sided, nonslip rug tape. If you need to sit down in the shower, use a plastic, nonslip stool. Install grab bars by the toilet and in the tub and shower. Do not use towel bars as grab bars. What can I do in the bedroom? Make sure that you have a light by your bed that is easy to reach. Do not use any sheets or blankets for your bed that hang to the floor. Have a firm chair with side arms that you can use for support when you get dressed. What can I do in the kitchen? Clean up any spills right away. If you need to reach something above you, use a step stool with a grab bar. Keep electrical cords out of the way. Do not use floor north k[place] or wax that makes floors slippery. What can I do with my stairs? Do not leave any items on the stairs. Make sure that you have a light switch at the top and the bottom of the stairs. Make sure that there are handrails on both sides of the stairs. Fix handrails that are broken or loose. Install nonslip stair treads on all your stairs. Avoid having throw rugs at the top or bottom of the stairs. Choose a carpet that does not hide the edge of the steps on the stairs. Check carpeting to make sure that it is firmly attached to the stairs. Fix carpet that is loose or worn. What can I do on the outside of my home? Use bright outdoor lighting. Fix the edges of walkways and driveways and fix any cracks. Remove anything that might make you trip as you walk through a door, such as a raised step or threshold. Trim any bushes or trees on paths to your home. Check to see if handrails are loose or broken and that both sides of all steps have handrails. Install guardrails along the edges of any raised decks and porches. Clear paths of anything that can make you trip, such as tools or rocks. Have leaves, snow, or ice cleared regularly. Use sand or salt on paths during winter. Clean up any spills in your garage right away. This includes grease or oil spills. What other actions can I take? Wear shoes that: ?Have a low heel. Do not wear high heels. ?Have rubber bottoms. ?Feel good on your feet and fit well. ?Are closed at the toe. Do not wear open-toe sandals. Use tools that help you move around if needed. These include: ?Canes. ?Walkers. ?Scooters. ?Crutches. Review your medicines with your doctor. Some medicines can make you feel dizzy. This can increase your chance of falling. Ask your doctor what else you can do to help prevent falls. Where to find more information Centers for Disease Control and Prevention, [place]: www.cdc.gov National [place] on Aging: www.roxana.nih.gov Contact a doctor if: You are afraid of falling at home. You feel weak, drowsy, or dizzy at home. You fall at home. Summary There are many simple things that you can do to make your home safe and to help prevent falls. Ways to make your home safe include removing things that can make you trip and installing grab barsin the bathroom. Ask for help when making these changes in your home. This information is not intended to replace advice given to you by your health care provider. Make sure you discuss any questions you have with your health care provider. Document Revised: 11/28/2021 Document Reviewed: 09/29/2020 [employer] Patient Education 2022 [employer]. Follow Up Care 10/03/2023 17:14:07 With:HARDEEP MCKENZIE Address: [facility] [place] [address]- Business (1) When: Unknown Comments:Call for followup appointment [facility] 07-27-2024 NoteDischarge Summary Admission and Discharge Information Admit Date/Time:10/03/2023 21:03 Admitting Physician - Renay SALINAS DO Consulting Physician - Riaz Alvarado Jr., PA-C Admitting Diagnoses: Discharge Order Date Discharge with Home Health - Ordered -- 10/06/23 12:41:00 EDT, home with [facility] - RN, PT and OT Discharge Diagnoses 1. Pneumonia, 10/03/2023 2. Altered mental status, 10/03/2023 3. History of subdural hematoma, 10/03/2023 4. Accidental fall, 10/03/2023 5. Seizure disorder, 10/03/2023 6. CAD (coronary artery disease), 10/03/2023 7. HTN, 10/03/2023 8. Anxiety, 10/03/2023 9. Hyperlipidemia, 10/03/2023 10. On deep vein thrombosis (DVT) prophylaxis, 10/03/2023 Altered mental status, 10/03/2023 Fall, 10/03/2023 Hip fracture, 10/03/2023 Potential stroke, 10/03/2023 Shoulder contusion, 10/03/2023 Procedure History PCI - Percutaneous coronary intervention (11/24/2021), Eye surgery (2003), Back sx, begnign tumor removal, Bilateral knee sx, bilateral shoulder sx, Breast biopsy sample, left foot reconstruction, pharygeal plasty. Hospital Course Significant Findings Please refer to history and physical for details of admission. Patient presented to the emergency room October 02 altered mental status and she fell in the morning of the . She is brought in by family members. She had 2 recent subdural hematomas the first 1 being July 28 secondary to a fall and she was transferred to [facility] and she had a second spontaneous subdural hematoma in August 11 while at the senior living facility. He is again transferred back to [facility]. Patient was discharged home to senior living in the middle of August 2023 and discharged on September 24, 2023. She has been doing okay for the previous few days at home according to the daughter however on the she started having confusion and she fell on the but did not seek medical care. On the she was acting more often. And her head was needed to the right side andEMS was called and she was brought to the ED. In the emergency room she had a Tmax of 38.0 and her systolic was elevated 156 but rest of her vitals were stable. She had a normal white count at 8.3 but she did have 80.4% neutrophils. The rest of her CBC with differential was unremarkable and coags ar e unremarkable. CMP was also unremarkable and urinalysis was essentially negative. CT of the abdomen and pelvis was done and showed no acute process but there was an opacity in the right lung base. CT of the chest was performed without contrast and it showed right middle lobe consolidation most likely pneumonia. Patient was admitted to the medical service. On the medical service patient was admitted for right middle lobe pneumonia and was placed on vancomycin and Zosyn. We did a MRSA screen and Pro-Demetria level that came back elevated at 0.14. We maintainher meds from home and cultures were done. Patient's hospital course was uncomplicated. Her cultures are still negative and the MRSA screen is positive. She was anxious for discharge today but she did want pulmonology to see her prior to being discharged. Pulmonology saw the patient and recommendeda dose of IV doxycycline and then 8 more days of oral Doxy to cover the presumptive MRSA and then switch her to oral antibiotics. We did a desaturation study and she did not qualify for home O2. Patient is discharged home today. NOTE - it took 35 minutes to evaluate and coordinate patient for discharge Procedures and Treatment Provided 1. CT of the abdomen pelvis without contrast 10/03/[address] of the chest without contrast 10/04/2023 3. Pulmonology consultation Services Consulted Consult to Pulmonology - Ordered -- 10/06/23 8:22:00 EDT, Pneumonia, Consult and Co-manage Physical Exam Vitals & Measurements T: 36.3 ?C(Axillary) TMIN: 36.3 ?C(Axillary) TMAX: 37.9 ?C(Oral) HR: 73(Monitored) RR: 18 BP: 137/72 SpO2: 99% WT: 85.7 kg Constitutional: Awake and alert; oriented x 3 with no apparent distress or respiratory distress Head/neck: Neck supple with no palpable lymphadenopathy, bruits or masses; trachea midline Chest/lungs: Diminished but clear to auscultation bilaterally no wheezes or rhonchi noted bilaterally Cardiovascular: Regular rate and rhythm; normal S1-S2 with no murmur; 1+ pitting edema 1+ pulses bilaterally Gastrointestinal: Soft, nontender, nondistended, positive bowel sounds Neurological: Nonfocal; cranial nerves II through XII appear intact Psychological: Pleasant affect Tests Performed Cervical Spine CT w/o Contrast CT Abdomen/Pelvis w/o Contrast CT Chest w/o Contrast CT Head or Brain w/o Contrast Shoulder XR Complete Left XR Chest Single View XR Hip 2-3 Views Right + Pelvis Discharge Plan Patient Discharge Condition stable Discharge Disposition Discharge To, Anticipated II - Home with [facility] with RN, PT and OT Discharge Diet Discharge Diet(s): Fat Modified- Low cholesterol (10/06/23 12:40:0 (more content not included)...[facility] HospitalComment on above:Result Comment: Electronically Signed By: Barrett Bales DO\.br\Date and Time Signed: 10/06/23 14:08 [id number] Evaluation + Plan noteExtracted from:Title: Discharge NoteAuthor:Barrett Bales DODate:10/06/23 stable Discharge To, Anticipated II - Home with [facility] with RN, PT and OT Discharge Diet(s): Fat Modified- Low cholesterol (10/06/23 12:40:00) Prescriptions Albuterol (Eqv-ProAir HFA) 90 mcg/inh inhalation aerosol, 2 puff(s), Inhalation, q6hr, PRN Augmentin 875 mg oral tablet, 1 tab(s), Oral, q12hr doxycycline hyclate 100 mg Tab, 100 mg= 1 tab(s), Oral, q12hr famotidine 40 mg Tab, 40 mg= 1 tab(s), Oral, Daily ferrous sulfate 325 mg Tab, 325 mg= 1 tab(s), Oral, Daily losartan 50 mg Tab, 50 mg= 1 tab(s), Oral, Daily, Not taking Metoprolol tartrate 25 mg Tab, 12.5 mg= 0.5 tab(s), Oral, BID Mucinex 600 mg Tab-ER, 1200 mg= 2 tab(s), Oral, BID Home acetaminophen 325 mg Tab, 650 mg= 2 tab(s), Oral, q6hr, PRN aspirin 81 mg Chew Tab, 81 mg= 1 tab(s), Oral, Daily, Not taking baclofen, 5 mg, Oral, Bedtime, Not taking docusate sodium 100 mg Cap, 100 mg= 1 cap(s), Oral, BID Fish Oil, 1 cap(s), Oral, Bedtime gabapentin 300 mg Cap, 300 mg= 1 cap(s), Oral, TID Keppra, 500 mg, Bedtime, Not taking lisinopril 20 mg Tab, 20 mg= 1 tab(s), Oral, Daily LORazepam 0.5 mg Tab, 0.5 mg= 1 tab(s), Oral, TID magnesium oxide 400 mg Tab, 400 mg= 1 tab(s), Oral, Bedtime montelukast 10 mg Tab, 10 mg= 1 tab(s), Oral, Daily Multivitamins and Minerals oral tablet pravastatin 40 mg Tab, 40 mg= 1 tab(s), Oral, Daily Zyrtec, 10 mg, Oral, Daily, PRN NEW: 1. Doxycycline 100 mg 1 p.o. twice daily for 8 days 2. Augmentin 875 mg 1 p.o. twice daily for 7 days With When Contact Information HARDEEP MCKENZIE [address] [place], [place] [id number]- [facility] (1) Additional Instructions: Call for followup appointment Extracted from:Title:PCCM Consult NoteAuthor:Christiano Finney PA-C, Riaz RodríguezDate: 10/06/23 Acute hypoxemic respiratory failure 2/2 RML PNA H/o asthma (no PFTs on file) Plan: - Currently on 2L NC --> will wean to RA - Titrate O2 for sats 92-96% - Continue bronchodilators and mucinex - COVID/RVP neg - Sputum cx NGTD - MRSA swab prelim + - Pt received two days of Vanco and Zosyn --> recommend switching to augmentin and doxycycline to complete the course - Encourage IS, flutter valve, and OOB VTE ppx: SCDs Pt is requesting d/c home Recommend desat study prior to d/c Recommend completing course of augmentin and doxycycline Ok to d/c home from PCCM perspective Extracted from:Title:Progress/SOAP NoteAuthor:Barrett Bales DO.Date: 10/05/23 83-year-old female admitted for right middle lobe pneumonia. She has had hospitalizations in the past. Suspect gram-negative organisms. She was also noted to have acute metabolic encephalopathy although this morning she is alert and oriented and very lucid. Comorbidities include history of asthma, CAD with PCI, anxiety, diastolic dysfunction, chronic anemia, GERD, hyperlipidemia, hypertension, mild pulmonary hypertension and seizure disorder with history of subdural hematoma. 1. Pneumonia (J18.9: Pneumonia, unspecified organism) Right middle lobe; recent hospitalizations Suspect gram-negative organisms Day 3 IV Zosyn Nasal MRSA swab negative so we will discontinue vancomycin Blood cultures and sputum culture no growth to date Pro-Demetria 0.14 2. Altered mental status (R41.82: Altered mental status, unspecified) May be secondary to pneumonia versus recent subdural hematoma She is back to her baseline Workup negative except for the pneumonia 3. History of subdural hematoma (Z86.79: Personal history of other diseases of the circulatory system) CT of the head showed no significant hematoma at this time Continue supportive care Follow-up with neurology/neurosurgery in the outpatient setting 4. Accidental fall (W19.XXXA: Unspecified fall, initial encounter) Continue PT and OT 5. Seizure disorder (R56.9: Unspecified convulsions) 6. CAD (coronary artery disease) (I25.10: Atherosclerotic heart disease of [place] coronary artery without angina pectoris) Maintain metoprolol and pravastatin 7. HTN (I10: Essential (primary) hypertension) On metoprolol 8. Anxiety (F41.9: Anxiety disorder, unspecified) Stable 9. Hyperlipidemia (E78.5: Hyperlipidemia, unspecified) Continue pravastatin 10. On deep vein thrombosis (DVT) prophylaxis (Z79.899: Other [facility]p (current) drug therapy) SCDs; no anticoagulant given her recent subdural hematoma Hip fracture (S72.009A: Fracture of unspecified part of neck of unspecified femur, initial encounter for closed fracture) Shoulder contusion (S40.019A: Contusion of unspecified shoulder, initial encounter) Orders: metoprolol, 25 mg = 1 tab(s), Tab, Oral, BID, Routine, Start date 10/05/23 21:00:00 EDT, 10/05/23 13:10:00 EDT Basic Metabolic Panel CBC w/ Auto Diff eGFR PLAN: 1. Continue IV Zosyn; MRSA nasal swab negative so vancomycin discontinued 2. I did increase her metoprolol to 25 mg twice daily 3. Maintain PT and OT 4. Full CODE STATUS 5. DVT prophylaxis with SCDs 6. Discharge planning in next 24 to 48 hours; she is current with [facility]; RN withPT and OT Extracted from:Title:Progress/SOAP NoteAuthor:Nii ZHANG Barrett SotoChinmayDate: 10/04/23 83-year-old female admitted for right middle lobe pneumonia. She has had hospitalizations in the past. Suspect gram-negative organisms. She was also noted to have acute metabolic encephalopathy although this morning she is alert and oriented and very lucid. Comorbidities include history of asthma, CAD with PCI, anxiety, diastolic dysfunction, chronic anemia, GERD, hyperlipidemia, hypertension, mild pulmonary hypertension and seizure disorder with history of subdural hematoma. 1. Pneumonia (J18.9: Pneumonia, unspecified organism) Right middle lobe; recent hospitalizations Suspect gram-negative organisms Day 2 IV vancomycin and Zosyn Cultures pending colluding 2 blood cultures pending sputum culture MRSA screen pending Pro-Demetria 0.14 2. Altered mental status (R41.82: Altered mental status, unspecified) May be secondary to pneumonia versus recent subdural hematoma Resolved back to baseline TSH normal, B12 normal and folic acid level normal 3. History of subdural hematoma (Z86.79: Personal history of other diseases of the circulatory system) CT of the head showed no significant hematoma at this time Continue supportive care Follow-up with neurology/neurosurgery in the outpatient setting 4. Accidental fall (W19.XXXA: Unspecified fall, initial encounter) PT and OT to eval and treat 5. Seizure disorder (R56.9: Unspecified convulsions) Trying to clarify; nursing stated that patient stopped taking her Keppra in the past 6. CAD (coronary artery disease) (I25.10: Atherosclerotic heart disease of [place] coronary artery without angina pectoris) Maintain metoprolol and pravastatin 7. HTN (I10: Essential (primary) hypertension) On metoprolol plus lisinopril 8. Anxiety (F41.9: Anxiety disorder, unspecified) Treat as needed 9. Hyperlipidemia (E78.5: Hyperlipidemia, unspecified) On pravastatin 10. On deep vein thrombosis (DVT) prophylaxis (Z79.899: Other m[facility]p (current) drug therapy) SCDs No heparin products given the recent subdural hematoma Hip fracture (S72.009A: Fracture of unspecified part of neck of unspecified femur, initial encounter for closed fracture) Shoulder contusion (S40.019A: Contusion of unspecified shoulder, initial encounter) PLAN: 1. As outlined above 2. Repeat lab in a.m. 3. Full CODE STATUS 4. Case management for discharge planning Extracted from:Title:Admission H & PAuthor:Renay SALINAS DO RDate:10/04/23 1. Pneumonia (J18.9: Pneumon ia, unspecified organism) This patient has been hospitalized multiple times in the recent past will start on IV Zosyn and vancomycin. Sputum culture ordered. Will check rapid COVID and respiratory viral panel and procalcitonin. Pulmonary toilet as ordered - duo- nebs q6hrs and alb neb q2hrs prn, Tessalon Perles as needed, mucinex 2. Altered mental status (R41.82: Altered mental status, unspecified) Suspect multifactorial related to #1, recent subdural hematoma, and normal age- related changes. Will also check vitamin B12, TSH, RPR, folate level with morning labs for possible reversible causes. Supportive care. Will reassess as acute issues resolved. 3. History of subdural hematoma (Z86.79: Personal history of other diseases of the circulatory system) Head CT shows no significant hematoma at this time. Supportive care. Follow-up with neurology/neurosurgery as previously indicated. 4. Accidental fall (W19.XXXA: Unspecified fall, initial encounter) Will ask physical therapy Occupational Therapy to evaluate patient. 5. Seizure disorder (R56.9: Unspecified convulsions) Nursing note states that patient has stopped taking her Keppra. Will need to clarify this with patient's daughter in the morning 6. CAD (coronary artery disease) (I25.10: Atherosclerotic heart disease of [place] coronary artery without angina pectoris) No obvious active anginal complaints. Will continue patient on beta-rudi and statin. No antiplatelet medication at this time because of recent subdural hematoma. 7. HTN (I10: Essential (primary) hypertension) Continue lisinopril, beta-rudi. Hydralazine IV as needed. 8. Anxiety (F41.9: Anxiety disorder, unspecified) Ativan as needed 9. Hyperlipidemia (E78.5: Hyperlipidemia, unspecified) Continue statin 10. On deep vein thrombosis (DVT) prophylaxis (Z79.899: Other mcfp (current) drug therapy) SCD, early ambulation. No heparin based products because of recent subdural hematoma Orders: acetaminophen, 650 mg = 2 tab(s), Tab, Oral, q6hr PRN Pain, Routine, Start date 10/03/23 23:47:00 EDT, 10/03/23 23:47:00 EDT albuterol, 2.5 mg, 3 mL, Soln-Inh, Inhalation, q2hr PRN Shortness of breath or wheezing, Routine, Start date 10/03/23 23:45:00 EDT albuterol-ipratropium, 3 mL, Soln-Inh, Inhalation, QID, Routine, Start date 10/04/23 8:00:00 EDT benzonatate, 100 mg = 1 cap(s), Cap, Oral, TID PRN Cough, Routine, Start date 10/03/23 23:46:00 EDT, 10/03/23 23:46:00 EDT diphenhydrAMINE, 25 mg = 1 cap(s), Cap, Oral, q6hr PRN Itching, Routine, Start date 10/03/23 23:47:00 EDT, 10/03/23 23:47:00 EDT famotidine, 40 mg = 2 tab(s), Tab, Oral, Daily, Routine, Start date 10/04/23 9:00:00 EDT, 10/03/23 23:32:00 EDT ferrous sulfate, 325 mg = 1 tab(s), Tab, Oral, Daily, Routine, Start date 10/04/23 9:00:00 EDT, 10/03/23 23:32:00 EDT gabapentin, 300 mg = 1 cap(s), Cap, Oral, TID, NOW, Start date 10/03/23 23:32:00 EDT, 10/03/23 23:32:00 EDT guaifenesin, 1,200 mg = 2 tab(s), Tab-ER, Oral, BID, NOW, Start date 10/03/23 23:32:00 EDT, 10/03/23 23:32:00 EDT hydrALAZINE, 10 mg = 0.5 mL, Injection, IV Push, q6hr PRN Other (see comment), Routine, Start date 10/03/23 23:47:00 EDT, 10/03/23 23:47:00 EDT ibuprofen, 800 mg = 1 tab(s), Tab, Oral, TID PRN Pain, Routine, Start date 10/03/23 23:47:00 EDT, 10/03/23 23:47:00 EDT lisinopril, 20 mg = 1 tab(s), Tab, Oral, Daily, Routine, Start date 10/04/23 9:00:00 EDT, 10/03/23 23:33:00 EDT lorazepam, 0.5 mg = 1 tab(s), Tab, Oral, TID PRN Anxiety, Routine, Start date 10/03/23 23:33:00 EDT, 10/03/23 23:33:00 EDT metoprolol, 12.5 mg = 0.5 tab(s), Tab, Oral, BID, NOW, Start date 10/03/23 23:33:00 EDT, 10/03/23 23:33:00 EDT montelukast, 10 mg = 1 tab(s), Tab, Oral, Daily, Routine, Start date 10/04/23 9:00:00 EDT, 10/02/2422:33:00 EDT ondansetron, 4 mg = 2 mL, Injection, IV Push, q6hr PRN Nausea, Routine, Start date 10/03/23 23:47:00 EDT, 10/03/23 23:47:00 EDT piperacillin-tazobactam + Sodium Chloride 0.9% intravenous solution 50 mL, 3.375 gm = 1 EA, IV Piggyback, q6hrFT, Stop date 11/03/23 2:59:00 EDT, Routine, Start date 10/04/23 3:00:00 EDT, 100 mL/hr, Infuse over 30 minute(s), 10/04/23 3:00:00 EDT pravastatin, 40 mg = 1 tab(s), Tab, Oral, Bedtime, Routine, Start date 10/04/23 0:00:00 EDT Sodium Chloride 0.9% intravenous solution 1,000 mL, 1,000 mL, IV, 75 mL/hr, Routine, Start date 10/04/23 0:01:00 EDT, 13.3 hour(s), Total volume (mL): 1,000, 88.9 kg, 2.05, m2 vancomycin, PHARMACY TO DOSE, Injection, IV, As Directed, Routine, Start date 10/03/23 23:43:00 EDT Ambulate with Assistance Basic Metabolic Panel Below the Knee Intermittent Pneumatic Compression Device Cardiac Monitoring CBC w/ Indices CT Chest w/o Contrast Folate Level Magnesium Level MRSA Screen Notify Provider Vital Signs Notify Provider Vital Signs Occupational Therapy Evaluate Patient, Develop a Plan of Care and Implement Plan Oxygen Protocol Physical Therapy Evaluate Patient, Develop a Plan of Care and Implement Plan Place in Status Precautions Precautions Procalcitonin Rapid COVID Antigen ([facility] [place]) Regular Diet Respiratory Panel by PCR Resuscitation Status - Full RPR with Conf Rfx Saline Lock Convert From IV Sputum Culture TSH With T4fr Reflex Vital Signs Vitamin B12 Level Weight Anticipated stay greater than 2 midnights due to above Extracted from:Title:ED AddendumAuthor:Reshma Ramirez M.D. HDate:10/03/23 1. Pneumonia (J18.9: Pneumon ia, unspecified organism) 2. Altered mental status (R41.82: Altered mental status, unspecified) 3. History of subdural hematoma (Z86.79: Personal history of other diseases of the circulatory system) 4. Accidental fall (W19.XXXA: Unspecified fall, initial encounter) 5. Seizure disorder (R56.9: Unspecified convulsions) 6. CAD (coronary artery disease) (I25.10: Atherosclerotic heart disease of [place] coronary artery without angina pectoris) 7. HTN (I10: Essential (primary) hypertension) 8. Anxiety (F41.9: Anxiety disorder, unspecified) 9. Hyperlipidemia (E78.5: Hyperlipidemia, unspecified) 10. On deep vein thrombosis (DVT) prophylaxis (Z79.899: Other watermelon inspector (current) drug therapy) Hip fracture (S72.009A: Fracture of unspecified part of neck of unspecified femur, initial encounter for closed fracture) Shoulder contusion (S40.019A: Contusion of unspecified shoulder, initial encounter) Orders: Sodium Chloride 0.9% intravenous solution, 1,000 mL, Soln-IV, IV, Once, Stop date 10/03/23 20:40:00EDT, STAT, Start date 10/03/23 20:40:00 EDT, Infuse over 61, minute(s) vancomycin + Generic Diluent 300 mL, Reason for Vancomycin: Acute hospitalization within last year,1,500 mg = 300 mL, Soln-IV, IV Piggyback, Once, Stop date 10/03/23 21:00:00 EDT, Routine, Start date 10/03/23 21:00:00 EDT, Infuse over 90 minute(s) Blood Culture Charcoal Blood Culture Charcoal ED Physician consult Hospitalist for continued care Lactic Acid Extracted from:Title:ED NoteAuthor:Stacia Dwyer DODate:10/03/23 Accidental fall (W19.XXXA: U nspecified fall, initial encounter) Altered mental status (R41.82: Altered mental status, unspecified) Hip fracture (S72.009A: Fracture of unspecified part of neck of unspecified femur, initial encounter for closed fracture) Shoulder contusion (S40.019A: Contusion of unspecified shoulder, initial encounter) Orders: BB Draw & Hold Cardiac Monitoring CBC w/ Auto Diff Communication Order Communication Order Comprehensive Metabolic Panel Continuous Pulse Oximetry CT Abdomen/Pelvis w/o Contrast CT Head or Brain w/o Contrast CT Spine Cervical w/o Contrast Dysphagia Screen eGFR Neurological Assessment NPO Diet Oxygen Protocol PT & PTT Rapid Response Form Routine Capillary Glucose POC Stroke Quality Measures Troponin 0 Hr. UA with Cult Rflx XR Chest Single View XR Hip 2-3 Views Right + Pelvis XR Shoulder Complete Left [facility] 07-27-2024 NoteConsultation Note Chief Complaint pt found at 0930 today for altered mental status and head leaning to right which family states isntnormal. pt states fell yesterday morning, denies any headstrike, LOC, or blood thinners. denies pain anywhere. FSBS 97 upon arrival. hx of seizures Reason for Consultation Acute hypoxemic respiratory failure History of Present Illness Pt is an 83y F with past medical history significant for asthma (no PFTs on file), CAD, chronic HFpEF, HLD, and HTN who presented to the ED on 10/02 with complaints of a witnessed fall at home. Pt reports that she fell while at home which was witnessed by a family member. She was brought to the ED for evaluation. While in the ED, the pt was found to be hypoxemic on RA and febrile. CT chest revealed a RML pneumonia. Pt was started on empiric abx and admitted to the hospitalist service for furthermanagement. PCCM consulted to assist in management of the pt's acute hypoxemic respiratory failure. Review of Systems 12 point review of systems performed with patient, pertinent positives and negatives stated in HPI. Physical Exam Vitals & Measurements T: 36.3 ?C(Axillary) TMIN: 36.3 ?C(Axillary) TMAX: 37.9 ?C(Oral) HR: 71(Monitored) RR: 20 BP: 137/72 SpO2: 96% WT: 85.7 kg General: No acute distress Skin: Warm, dry Head: Atraumatic, normocephalic Neck: Trachea midline, no adenopathy, no tenderness Eye: PERRL, sclera anicteric ENMT: Moist mucous membranes Cardiovascular: Regular rate and rhythm. No murmurs, rubs, or gallops. 1+ BLE edema. Respiratory: CTA. No wheezing, rhonchi, or crackles. No stridor. No accessory muscle use. Chest wall: No deformity Gastrointestinal: Soft, non-tender, non-distended Back: No tenderness Extremities: No deformity Neurological: Awake and alert. Following commands. No focal deficit appreciated. Psychiatric: Cooperative. Affect appropriate for age. Images IMPRESSION: RIGHT MIDDLE LOBE CONSOLIDATION MOST LIKELY REPRESENTING PNEUMONIA IN THE APPROPRIATE CLINICAL SETTING. CONTINUED FOLLOW-UP RECOMMENDED TO ENSURE RESOLUTION. EXAM: CT Chest w/o Contrast History: Cough. Dyspnea. Technique: Multiple contiguous axial images were obtained of the thorax from the thoracic inlet through the upper abdomen without IV contrast. Multiplanar reformats were obtained. Unless otherwise stated, incidental findings identified in this report do not require routine follow-up imaging. Comparison: CT chest 07/29/2023 Findings: Visualized portion of the thyroid gland is within normal limits. No axillary, mediastinal, or hilar lymphadenopathy. No thoracic aortic aneurysm. Atherosclerotic calcification of the thoracic aorta. Heart size is within normal limits. No significant pericardial effusion. Coronary artery calcifications are identified. Esophagus is within normal limits. Moderate right middle lobe consolidation with air bronchograms and adjacent groundglass opacities and tiny nodular densities. Trace right pleural effusion. Bilateral subsegmental dependent atelectasis. No pneumothorax. Visualized upper abdomen demonstrates no acute abnormality. No acute osseous abnormality. Decreased bone mineralization. Diffuse CT pelvis axial hyperostosis and degenerative changes of the thoracic spine. Postsurgical changes of bilateral shoulder arthroplasty. All CT scans at this facility use dose modulation, iterative reconstruction, and/or weight based dosing when appropriate to reduce radiation dose to as low as reasonably achievable. Ordering Provider: Renay SALINAS Assessment/Plan Acute hypoxemic respiratory failure 2/2 RML PNA H/o asthma (no PFTs on file) Plan: - Currently on 2L NC --> will wean to RA - Titrate O2 for sats 92-96% - Continue bronchodilators and mucinex - COVID/RVP neg - Sputum cx NGTD - MRSA swab prelim + - Pt received two days of Vanco and Zosyn --> recommend switching to augmentin and doxycycline to complete the course - Encourage IS, flutter valve, and OOB VTE ppx: SCDs Pt is requesting d/c home Recommend desat study prior to d/c Recommend completing course of augmentin and doxycycline Ok to d/c home from PCCM perspective Problem List/Past Medical History Ongoing Anxiety Arthritis Asthma CAD (coronary artery disease) Chronic anemia Chronic GERD Diastolic dysfunction Fall Hepatic cyst HTN Hyperlipidemia Mild pulmonary hypertension Morbid obesity Seasonal allergies Seizure disorder Traumatic hematoma of left knee Historical No qualifying data Procedure/Surgical History PCI - Percutaneous coronary intervention (11/24/2021), Eye surgery (2003), Back sx, begnign tumor removal, Bilateral knee sx, bilateral shoulder sx, Breast biopsy sample, left foot reconstruction, pharygeal plasty. Medications Inpatient acetaminophen 325 mg Tab, 650 mg= 2 tab(s), Oral, q6hr, PRN albuterol 0.083% Inh Rizwana 3 mL, 2.5 mg= 3 mL, Inhalation, (more content not included)...[facility] HospitalComment on above:Result Comment: Electronically Signed By: Christiano Finney PA-C, Riaz Curiel.chepe\Date and Time Signed: 10/06/23 11:46 [id number] NoteProgress Note-Physician Subjective Day 3 IV Alisa Patient seen and examined earlier this morning. She is feeling better. She still has a slight coughproductive of yellowish phlegm but breathing much better. Blood pressures have been elevated and she did have a low-grade temperature earlier this morning. Review of Systems Constitutional: no fever, no chills, no sweats, no weakness Respiratory: no shortness of breath, no cough, no orthopnea, no wheezing Cardiovascular: no chest pain, no palpitations, no edema Additional ROS info: Except as noted in the above Review of Systems and in the History of Present Illness all other systems have been reviewed and are negative or noncontributory. Objective Vitals & Measurements T: 38.6 ?C(Axillary) TMIN: 36.8 ?C(Axillary) TMAX: 38.6 ?C(Axillary) HR: 88(Peripheral) RR: 18 BP: 125/71 SpO2: 96% WT: 88.2 kg Intake & Output This visit (24 hour periods starting at 07:00 EDT) 10/05/23 * 10/04/23 10/03/23 Total Summary Intake mL -- 1,547.12 1,977.94 Output mL -- -- 1,150 Fluid Balance -- 1,547.12 827.94 Intake (6) Generic Diluent, vancomycin mL -- 299.99 300 Oral Intake mL -- 540 300 Sodium Chloride 0.9% mL -- -- 1,000 Sodium Chloride 0.9% intravenous solution 1,000 mL mL -- 556.63 277.94 Sodium Chloride 0.9%, piperacillin-tazobactam mL -- 150 100 hydrALAZINE mL -- 0.5 -- Total -- 1,547.12 1,977.94 Output (2) Urine Output Initial mL -- -- 550 Urine Voided mL -- -- 600 Total -- -- 1,150 Counts (1) Urine Count -- 4 -- * This column has not completed the indicated time period. Physical Exam Constitutional: Awake and alert; oriented x 3 with no apparent distress or respiratory distress Head/neck: Neck supple with no palpable lymphadenopathy, bruits or masses; trachea midline Chest/lungs: Diminished but clear to auscultation bilaterally no wheezes or rhonchi noted bilaterally Cardiovascular: Regular rate and rhythm; normal S1-S2 with no murmur; 1+ pitting edema 1+ pulses bilaterally Gastrointestinal: Soft, nontender, nondistended, positive bowel sounds Neurological: Nonfocal; cranial nerves II through XII appear intact Psychological: Pleasant affect Lab Results WBC: 6 E9/L (10/05/23 06:05:00) RBC: 3.6 E12/L Low (10/05/23 06:05:00) HGB: 10.7 gm/dL Low (10/05/23 06:05:00) Hct: 31.4 % Low (10/05/23 06:05:00) MCV: 88.4 fL (10/05/23 06:05:00) MCH: 30.2 pg (10/05/23 06:05:00) MCHC: 34.1 gm/dL (10/05/23 06:05:00) RDW: 15.5 % High (10/05/23 06:05:00) Platelet: 156 E9/L (10/05/23 06:05:00) MPV: 7.4 fL (10/05/23 06:05:00) Neutro Auto: 85.6 % High (10/05/23 06:05:00) Lymph Auto: 5.9 % Low (10/05/23 06:05:00) [place] Auto: 7.5 % (10/05/23 06:05:00) Eos Auto: 0.6 % (10/05/23 06:05:00) Basophil Auto: 0.4 % (10/05/23 06:05:00) Neutro Absolute: 5.1 E9/L (10/05/23 06:05:00) Lymph Absolute: 0.4 E9/L Low (10/05/23 06:05:00) [place] Absolute: 0.4 E9/L (10/05/23 06:05:00) Eos Absolute: 0 E9/L (10/05/23 06:05:00) Basophil Absolute: 0 E9/L (10/05/23 06:05:00) Glucose Lvl: 104 mg/dL (10/05/23 06:05:00) BUN: 14 mg/dL (10/05/23 06:05:00) Creatinine: 0.8 mg/dL (10/05/23 06:05:00) eGFR: 72 mL/min/1.73 m2 (10/05/23 06:05:00) BUN/Creat Ratio: 18 (10/05/23 06:05:00) Sodium Lvl: 134 mmol/L Low (10/05/23 06:05:00) Potassium Lvl: 3.2 mmol/L Low (10/05/23 06:05:00) Chloride: 102 mmol/L (10/05/23 06:05:00) CO2: 23 mmol/L (10/05/23 06:05:00) AGAP: 12 mEq/L (10/05/23 06:05:00) Calcium Lvl: 8.1 mg/dL Low (10/05/23 06:05:00) Assessment/Plan 83-year-old female admitted for right middle lobe pneumonia. She has had hospitalizations in the past. Suspect gram-negative organisms. She was also noted to have acute metabolic encephalopathy although this morning she is alert and oriented and very lucid. Comorbidities include history of asthma, CAD with PCI, anxiety, diastolic dysfunction, chronic anemia, GERD, hyperlipidemia, hypertension, mild pulmonary hypertension and seizure disorder with history of subdural hematoma. 1. Pneumonia (J18.9: Pneumonia, unspecified organism) Right middle lobe; recent hospitalizations Suspect gram-negative organisms Day 3 IV Zosyn Nasal MRSA swab negative so we will discontinue vancomycin Blood cultures and sputum culture no growth to date Pro-Demetria 0.14 2. Altered mental status (R41.82: Altered mental status, unspecified) May be secondary to pneumonia versus recent subdural hematoma She is back to her baseline Workup negative except for the pneumonia 3. History of subdural hematoma (Z86.79: Personal history of other diseases of the circulatory system) CT of the head showed no significant hematoma at this time Continue supportive care Follow-up with neurology/neurosurgery in the outpatient setting 4. Accidental fall (W19.XXXA: Unspecified fall, initial encounter) Continue PT and OT 5. Seizure disorder (R56.9: Unspecified conv (more content not included)... [facility] HospitalComment on above:Result Comment: Electronically Signed By: Barrett Bales DO\Date and Time Signed: 10/05/23 15:08 EDT 10-05-2023 NoteProgress Note - Pharmacy Vancomycin Pharmacy to Dose Consult Note RECOMMENDATIONS/PLAN: Pharmacy consulted for vancomycin dosing for CARLY MARCELINO, a 83 Years old, FEMALE who is being treated with vancomycin for pneumonia. 1. VANCO STATUS: Vancomycin therapy has been discontinued. Vancomycin level(s) have been discontinued. Pharmacy vancomycin dosing service will sign off. Thank you for allowing us to participate in this patient's care. Please contact pharmacy if there are questions.[facility]07-23-[facility] Telephone encounter Note* Telephone Encounter - Daina Walton RN - 10/02/2023 11:34 AM EDT Talked with Gurmeet, sent over ROGE for patient to sign faxed over successfully to [phone]. [id number] Miscellaneous Notes* Telephone Encounter - Daina Walton RN - 10/02/2023 11:34 AM EDT Talked with Gurmeet, sent over ROGE for patient to sign faxed over successfully to [phone]. * Telephone Encounter - Lara Medina - 10/02/2023 8:35 AM EDT Gurmeet, from [facility] calling in (PT PCP Dr. Hardeep Mckenzie office), calling in Gurmeet stated that PT has an upcoming Neurology appointment with us here at , is wanting to know if PT is required to have any tests/scans done before hand that Dr. Mckenzie can get ordered for her. Gurmeet mentioned that Dr. Mckenzie is wanting to make sure everything that is needed can be done aheadof time to help. Gurmeet also mentioned office is aware that PT had an EEG done here at , is wanting to know if those records could be faxed to them, PT Daughter, Vilma, is caring for PT now - mentioned getting scans over as well (Vilma can be reached at [phone], stated PT is dealing with memory issues, Vilma has been their point of contact). Gurmeet can be reached at [phone], option 4 will take you directly to a nurse; if there are any tests/scans/orders needing to be done. Thanks! documented in this [id number] Telephone encounter Note* Telephone Encounter - Lara Medina - 10/02/2023 8:35 AM EDT Gurmeet, from [facility] calling in (PT PCP Dr. Hardeep Mckenzie office), calling in Gurmeet stated that PT has an upcoming Neurology appointment with us here at , is wanting to know if PT is required to have any tests/scans done before hand that Dr. Mckenzie can get ordered for her. Gurmeet mentioned that Dr. Mckenzie is wanting to make sure everything that is needed can be done aheadof time to help. Gurmeet also mentioned office is aware that PT had an EEG done here at , is wanting to know if those records could be faxed to them, PT Daughter, Vilma, is caring for PT now - mentioned getting scans over as well (Vilma can be reached at [phone], stated PT is dealing with memory issues, Vilma has been their point of contact). Gurmeet can be reached at [phone], option 4 will take you directly to a nurse; if there are any tests/scans/orders needing to be done. Thanks! [id number] NoteHNO ID: [id number] Author: TIFF DRAPER OD Service: ? Author Type: INDUSTRIAL MAINTENANCE TECH Type: Progress Notes Filed: 09/25/2023 15:46 Note Text: ASSESSMENT/PLAN: 1. S/P YAG capsulotomy, right - ICD9: V45.89, ICD10: Z98.890 (primary diagnosis) - TROPICAMIDE 1 % EYE DROPS - PHENYLEPHRINE 2.5 % EYE DROPS - FLUORESCEIN 0.3 %-BENOXINATE 0.4 % EYE DROPS Doing well. Updated Rx given - monocular precautions. 2. Pseudophakia, right eye - ICD9: V43.1, ICD10: Z96.1 3. Retinal hemorrhage of left eye - ICD9: 362.81, ICD10: H35.62 Conservative observation. Monitor 1 year DFE and mac OCT 4. Insufficiency of tear film of both eyes - ICD9: 375.15, ICD10: H04.123 5. 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 Tiff Draper, OD September 25, 2023 3:42 [facility]07-16-2024 History of Present illness Narrative* Tiff Draper, OD - 09/25/2023 3:42 PM EDT ASSESSMENT/PLAN: 1. S/P YAG capsulotomy, right - ICD9: V45.89, ICD10: Z98.890 (primary diagnosis) - TROPICAMIDE 1 % EYE DROPS - PHENYLEPHRINE 2.5 % EYE DROPS - FLUORESCEIN 0.3 %-BENOXINATE 0.4 % EYE DROPS Doing well. Updated Rx given - monocular precautions. 2. Pseudophakia, right eye - ICD9: V43.1, ICD10: Z96.1 3. Retinal hemorrhage of left eye - ICD9: 362.81, ICD10: H35.62 Conservative observation. Monitor 1 year DFE and mac OCT 4. Insufficiency of tear film of both eyes - ICD9: 375.15, ICD10: H04.123 5. 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 Tiff Draper, OD September 25, 2023 3:42 PM documented in this [facility] NoteDate of Procedure 09/18/2023 [place] Protocol Safety Checklist Sign In: A moment to CARE completed, Special equipment verified, Appropriate PPE verified, Patient name, date of , allergies and intended procedure verified. Provider Confirms: Intended patient and procedure match the source document, Consent documented and matches the intended procedure, Correct side/site marked visible. Relevant labs, photos, and/or imaging studies have been reviewed. Medications required for procedure verified. Fire risk assessed and interventions discussed. Correct implant confirmed and expiration reviewed. Anesthesia None. Pre Laser Meds None (timolol given). Laser Paramters Power: 2.0. Total Spots: 114. Total Energy: 228. Post Laser Meds None. Home Going Prescription None. Sign Out Sign out discussion completed, All instruments, equipment, and/or possible retained foreign bodies accounted for, Post-procedure follow up management communicated. No specimens.[facility]07-09-[facility] Instructions* Patient Instructions* Vick Domínguez V, MD - 09/18/2023 4:16 PM EDT YAG LASER POSTERIOR CAPSULOTOMY Cataract surgery is a commonly performed procedure to remove a clouded human lens and replace it with a clear lens implant known as an intra-ocular lens. During this surgery, after the clouded lens is removed, a thin portion of the lens called the capsule is left in place. This membrane, which is similar in consistency to a sandwich bag, is left in place in order to give additional support for the lens implant. Over time, this clear membrane may become cloudy or hazy, similar to a cataract, before it was removed. If this occurs, images may become blurred again or glare may be created in the vision. Common complaints when this happens are decreased vision, increased glare, or an increase in the amount of light needed to read. Although this condition will not harm the health of the eye if left untreated, i t can prove to be a nuisance. Not all patients will develop a clouded capsule, but if this occurs, the problem can be corrected with a simple, non-invasive procedure known as a YAG laser capsulotomy. If you elect to have this procedure, dilating drops are given to open the pupil. You will be asked to sit in a machine similar tothe one that is used to check you eye pressure in an eye exam. The doctor then shines a red, aiminglaser beam that can be seen by our eyes. The invisible laser light would then be activated to make a small opening in the cloudy capsule to restore a clear image to the retina. While this is being performed, the doctor will instruct you where to look and when to blink. You will hear a series of clicks when the doctor is performing the laser procedure. You should not feel any discomfort. In most cases, if the health of the eye is normal, you should see an improvement in your vision within 24 hours. Immediately afterward, you will be blurry until the dilating drops wear off, so we recommend you come with a car pick up driver. You will then be scheduled for a follow up in approximately one week. If you notice any of the following symptoms of retinal detachment, please call our office at : - Flashes of light - Increased number of floaters or large floaters - Curtains, veils, or spider web pattern over vision [facility] NoteHNO ID: [id number] Author: VICK DOMÍNGUEZ MD Service: ? Author Type: Physician Type: Progress Notes Filed: 09/18/2023 16:18 Note Text: The documentation for this note was completed by Stacey Villarreal, COA acting as a scribe for Vick DOMÍNGUEZ MD. 09/18/2023 4:13 PM. ASSESSMENT / PLAN: 1. Posterior capsular opacity right eye -YAG capsulotomy right eye today -Patient educated on posterior capsular opacity following cataract surgery. The risks, benefits, alternatives, personnel, and possible complications related to yttrium aluminum garnet (YAG) capsulotomy discussed with patient. Explained that risks include but are not limited to: increase in intraocular pressure, retinal tears/detachment, dislocation of the intraocular lens, and/or need for further procedures. Patient expresses understanding and elects to proceed with YAG capsulotomy performed by Dr. Domínguez. Informed consent form signed by physician and patient. Literature regarding signs and symptoms of retinal detachment offered. -The patient was offered a [facility]/procedure [facility]. The surgeon/proceduralist and patient have discussed in detail the risk of exposure to and/or potential harm posed by the COVID-19 virus with having a surgery/procedure at this time versus the risk of delaying the surgery/procedure. It is not possible to know either the risk of delaying the surgery or procedure or chance of getting an infection with perfect accuracy, but a joint decision was made between the patient and the surgeon/proceduralist to proceed at this time with the scheduled surgery/procedure as indicated on the consent form. -F/U 1 week with carton counter feeder ([place]) 2. 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 - Guarded prognosis - Dr Angel following 3. Cataract Left eye Not visually significant I have confirmed and edited as necessary the relevant HPI, ophthalmic history, ROS, and the neuro exam findings as obtained by others. I have seen and examined Carly Leon Chari. I have discussed the case and the management of this patient's care with the Resident/Fellow, if applicable. I also have reviewed and agree with the assessment and plan as stated above and agree with all of its relevant components. Vick DOMÍNGUEZ MD September 18, 2023 4:13 [facility]07-09-2024 History of Present illness Narrative* Vick Domínguez V, MD - 09/18/2023 4:13 PM EDT The documentation for this note was completed by Stacey Villarreal, COA acting as a scribe for Vick DOMÍNGUEZ MD. 09/18/2023 4:13 PM. ASSESSMENT / PLAN: 1. Posterior capsular opacity right eye -YAG capsulotomy right eye today -Patient educated on posterior capsular opacity following cataract surgery. The risks, benefits, alternatives, personnel, and possible complications related to yttrium aluminum garnet (YAG) capsulotomy discussed with patient. Explained that risks include but are not limited to: increase in intraocular pressure, retinal tears/detachment, dislocation of the intraocular lens,and/or need for further procedures. Patient expresses understanding and elects to proceed with YAG capsulotomy performed by Dr. Domínguez. Informed consent form signed by physician and patient. Literature regarding signs and symptoms of retinal detachment offered. -The patient was offered a surgery/procedure [facility]. The surgeon/proceduralist and patient have discussed in detail the risk of exposure to and/or potential harm posed by the COVID-19 virus with having a surgery/procedure at this time versus the risk of delaying the surgery/p rocedure. It is not possible to know either the risk of delaying the surgery or procedure or chanceof getting an infection with perfect accuracy, but a joint decision was made between the patient and the surgeon/proceduralist to proceed at this time with the scheduled surgery/procedure as indicated on the consent form. -F/U 1 week with carton counter feeder ([place]) 2. 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 - Guarded prognosis - Dr Angel following 3. Cataract Left eye Not visually significant I have confirmed and edited as necessary the relevant HPI, ophthalmic history, ROS, and the neuro exam findings as obtained by others. I have seen and examined Carly Marcelino. I have discussed the case and the management of this patient's care with the Resident/Fellow, if applicable. I also have reviewed and agree with the assessment and plan as stated above and agree withall of its relevant components. Vick DOMÍNGUEZ MD September 18, 2023 4:13 PM * Tiff Draper, OD - 09/18/2023 4:02 PM EDT ASSESSMENT/PLAN: 1. PCO (posterior capsular opacification), right - ICD9: 366.50, ICD10: H26.491 (primary diagnosis) Yag OD with today. 2. Meibomian gland dysfunction (MGD) of upper and lower lids of both eyes - ICD9: 373.00, ICD10: H02.88A, H02.88B 3. Insufficiency of tear film of both eyes - ICD9: 375.15, ICD10: H04.123 Non-compliance with ATs/ryan - pt states nurses will no instill at her facility. Printed Rx given for Refresh TID OU, emycin ryan QhS OS. 4. Pseudophakia, right eye - ICD9: V43.1, ICD10: Z96.1 5. Retinal hemorrhage of left eye - ICD9: 362.81, ICD10: H35.62 Stable retina appearance with diffuse scaring and heme. Previously seen by AB - elected conservative observation due to limited visual potential. No sign of puma on exam. Recommend dilated exams q6m 6. Combined form of age-related cataract, left eye - ICD9: 366.19, ICD10: H25.812 Observe given low visual potential Tiff Draper, OD I have confirmed and [...] of its relevant components. Tiff Draper, [place] September 18, 2023 4:02 PM documented in this encounterMer[facility]24 NoteHNO ID: [id number] Author: TIFF DRAPER OD Service: ? Author Type: INDUSTRIAL MAINTENANCE TECH Type: Progress Notes Filed: 09/18/2023 16:18 Note Text: ASSESSMENT/PLAN: 1. PCO (posterior capsular opacification), right - ICD9: 366.50, ICD10: H26.491 (primary diagnosis) Yag OD with today. 2. Meibomian gland dysfunction (MGD) of upper and lower lids of both eyes - ICD9: 373.00, ICD10: H02.88A, H02.88B 3. Insufficiency of tear film of both eyes - ICD9: 375.15, ICD10: H04.123 Non-compliance with ATs/ryan - pt states nurses will no instill at her facility. Printed Rx given for Refresh TID OU, emycin ryan QhS OS. 4. Pseudophakia, right eye - ICD9: V43.1, ICD10: Z96.1 5. Retinal hemorrhage of left eye - ICD9: 362.81, ICD10: H35.62 Stable retina appearance with diffuse scaring and heme. Previously seen by AB - elected conservative observation due to limited visual potential. No sign of puma on exam. Recommend dilated exams q6m 6. Combined form of age-related cataract, left eye - ICD9: 366.19, ICD10: H25.812 Observe given low visual potential Tiff Draper, OD I have confirmed and [...] of its relevant components. Tiff Draper, [place] September 18, 2023 4:02 [facility]07-08-2024 Telephone encounter Note* Telephone Encounter - Ross Moody MD - 09/17/2023 6:05 PM EDT Patient called to ask if she needed to fast prior to her YAG for a PCO tomorrow. She was told no fasting necessary and voiced understanding. Ross Moody MD Ophthalmology Resident [facility] Work Phone: [phone] Miscellaneous Notes* Telephone Encounter - Ross Moody MD - 09/17/2023 6:05 PM EDT Patient called to ask if she needed to fast prior to her YAG for a PCO tomorrow. She was told no fasting necessary and voiced understanding. Ross Moody MD Ophthalmology Resident documented in this encounterMer[facility]07-[facility]24 Telephone encounter Note * Telephone Encounter - Karin Fiore LPN - 09/17/2023 5:11 PM EDT Patient calling regarding pre procedure instructions. Conferenced to [facility] tow truck operator, Chau, to speak with provider production honing machine operator for Dr. Domínguez. Karin Fiore LPN [facility]07-08-2024 Miscellaneous Notes* Telephone Encounter - Karin Fiore LPN - 09/17/2023 5:11 PM EDT Patient calling regarding pre procedure instructions. Conferenced to [facility] [place] tow truck operator, Chau, to speak with provider production honing machine operator for Dr. Domínguez. Karin Fiore LPN documented in this encounterMercy [facility]06-27-2024 Instructions* Patient Instructions* Noé Owen RN - 09/06/2023 10:20 AM EDT Follow up with Dr. Li via phone in 9 weeks Okay to shower, and was hair Wash hair with mild shampoo, rinse with water, do not scrub Call our office for any concerns, changes in behavior or any other concerns [phone] documented in this [id number] History of Present illness Narrative* Noé Owen, CARLOS - 09/06/2023 9:42 AM EDT FOLLOW UP VISIT Carly Marcelino is a [...] changes in behavior or any other concerns [phone] Noé Owen RN documented in this [id number] NoteEXAMINATION: CT HEAD W/O CONTRAST 09/05/2023 09:27 AM CLINICAL HISTORY: SDH evaluation ASSOCIATED DIAGNOSIS: SDH (subdural hematoma) (HCC) ORDERING PROVIDER: DERICK EDWARDS TECHNOLOGISTS NOTE: COMPARISON: CT of the brain 08/14/2023 TECHNIQUE: Thin axial imaging of the head was performed without intravenous contrast. FINDINGS: Postprocedural changes of left frontal and parietal katty holes for subdural hematoma evacuation andleft middle meningeal artery embolization. Residual hypodense left [...] subdural hematoma evacuation and middle meningeal artery embolizationwithout evidence of rebleeding since 08/14/2023. Residual thin hypodense subdural hematoma over the left cerebral convexity without significant mass effect. MACRO: None [id number] History of Present illness Narrative* Kymberly Cabrera APRN- CNP - 08/30/2023 2:51 PM EDT Images from the original note were not included. New Patient General information: Carly Marcelino is a 83 year old, White, female here today with a caretaker grounds from SNF. She is ambulatory with walker. Referring Provider: Derick Edwards APRN-CNP [address] [place] [address] The following information was obtained from the [...] urinary issues prior to fall and [facility]. Reportsable to get up out of chair to [...] Light Yellow Appearance Turbid pH 6.0 Spec [place] 1.018 Protein 20 Blood Negative Bilirubin Negative [...] up in clinic, She wants the kunz removedtoday and wants to follow up with Urologist closer to home, external referral for Urology at least one more visit for postvoid residual to make sure she is urinating completely on her own, LIBBY Singh documented in this [id number] Consult note* Sandy Flores CCC-CAN FILLING MACHINE OPERATOR - 08/24/2023 10:47 AM EDTAssociated Order(s): IP CAN FILLING MACHINE OPERATOR SERVICE REQUEST SPEECH LANGUAGE PATHOLOGY EVALUATION AC5-508/1 Referral received, chart reviewed and history is [...] prior to which she was transported to [facility]. They note that she was found to have a left acute subdural hematoma at that time that was stable. They report that she was discharged and transferred to [facility]. They endorse that the patient's family noticed a decline in the patient's mental status 3 days prior and that the patient began to complain of a WISDOM. They note that the patient was transported to [facility] ED today where imaging showed an expansion [...] time, situation), attention, organization, executive function, and insight.Language is characterized by perseverative expression of thoughts/ideas/topics with intermittent language errors during confrontation naming and picture description tasks. Patient is stimulable for use of cuing strategies. Written language is impaired at the basic level (name and single word) with question of visuospatial component. Patient intermittently aware of general errors with intermittentattempts to self correct which are perseverative and ineffective. Perseveration continues throughout all motor tasks. Receptive language is intact at basic level with breakdowns at moderate level information and 2-step simple command level. Reading comprehension is impaired at the simple sentence +level. The deficits identified during this assessment negatively impact the patient's ability to safely and efficiently complete ADL and IADL tasks within the current, home and community environmentswithout direct assistance. 07/30/23 Bedside Swallow Assessment: Patient appears appropriate to initiate a PO diet including regular texture solids and thin liquids with set up assistance and intermittent supervision as well asoral checks at end of all PO intake to ensure full oral clearance.If patient persistently exhibits pocketing of solids or difficulty/incomplete breakdown, then a diet downgrade may be necessary. SUBJECTIVE: Patient subjective/goals: Patient alert and sitting upright in bed upon CAN FILLING MACHINE OPERATOR arrival. CAN FILLING MACHINE OPERATOR spoke withRN prior to session. Patient fully participated throughout session. Patient Statement: Are they taking me there? Pain: None reported to CAN FILLING MACHINE OPERATOR Scale (if yes): -/10 Location: - OBJECTIVE: Cognition: - Deferred completion of BCSE d/t recent completion in previous admission [facility] Mental Status (UMS) [facility] Mental Status ([facility]) exam is an assessment tool for mild cognitive impairment and dementia and was developed in partnership with the Geriatrics Research, Education and Clinical Center at the [facility] - Patient scored 6/30, dementia score [...] step commands: + -2 step commands: + -[place]/biographical y/n questions: + -Open ended questions: + [...] pulmonary subsegmental atelectasis. Oxygen Requirements: Room air [place] Swallow Protocol: State: alert; + maintained across [...] Suppression therapy (PPI, H2 Blockers) X Education: CAN FILLING MACHINE OPERATOR educated patient and RN on results/recommendations and [...] bedside. The patient is unable to pass the[place] Swallow Protocol as she was unable to consecutive consume 3 ounces of water. Patient presents with no overt s/s of cardiopulmonary distress/decline with PO throughout session. The patient has low risk factors for developing aspiration related complications. Instrumental swallowing assessment is not indicated at this time. Recommend Regular Diet and Thin Liquids. No skilled CAN FILLING MACHINE OPERATOR services indicated for dysphagia management. PLAN: Treatment [...] at discharge for cognition - Discharge Recommendation: [facility] Sandy Flores MA, CCC-CAN FILLING MACHINE OPERATOR Speech Language Pathologist Office [phone] [id number] Consult note* Sandy Flores CCC-CAN FILLING MACHINE OPERATOR - 08/24/2023 10:47 AM EDTAssociated Order(s): IP CAN FILLING MACHINE OPERATOR SERVICE REQUEST SPEECH LANGUAGE PATHOLOGY EVALUATION AC5-508/1 Referral received, chart reviewed and history is [...] prior to which she was transported to [facility]. They note that she was found to have a left acute subdural hematoma at that time that was stable. They report that she was discharged and transferred to [facility]. They endorse that the patient's family noticed a decline in the patient's mental status 3 days prior and that the patient began to complain of a WISDOM. They note that the patient was transported to [facility] ED today where imaging showed an expansion [...] time, situation), attention, organization, executive function, and insight.Language is characterized by perseverative expression of thoughts/ideas/topics with intermittent language errors during confrontation naming and picture description tasks. Patient is stimulable for use of cuing strategies. Written language is impaired at the basic level (name and single word) with question of visuospatial component. Patient intermittently aware of general errors with intermittentattempts to self correct which are perseverative and ineffective. Perseveration continues throughout all motor tasks. Receptive language is intact at basic level with breakdowns at moderate level information and 2-step simple command level. Reading comprehension is impaired at the simple sentence +level. The deficits identified during this assessment negatively impact the patient's ability to safely and efficiently complete ADL and IADL tasks within the current, home and community environmentswithout direct assistance. 07/30/23 Bedside Swallow Assessment: Patient appears appropriate to initiate a PO diet including regular texture solids and thin liquids with set up assistance and intermittent supervision as well asoral checks at end of all PO intake to ensure full oral clearance.If patient persistently exhibits pocketing of solids or difficulty/incomplete breakdown, then a diet downgrade may be necessary. SUBJECTIVE: Patient subjective/goals: Patient alert and sitting upright in bed upon CAN FILLING MACHINE OPERATOR arrival. CAN FILLING MACHINE OPERATOR spoke withRN prior to session. Patient fully participated throughout session. Patient Statement: Are they taking me there? Pain: None reported to CAN FILLING MACHINE OPERATOR Scale (if yes): -/10 Location: - OBJECTIVE: Cognition: - Deferred completion of BCSE d/t recent completion in previous admission [facility] Mental Status (UMS) [facility] Mental Status (UMS) exam is an assessment tool for mild cognitive impairment and dementia and was developed in partnership with the Geriatrics Research, Education and Clinical Center at the [facility] - Patient scored 6/30, dementia score [...] step commands: + -2 step commands: + -[place]/biographical y/n questions: + -Open ended questions: + [...] pulmonary subsegmental atelectasis. Oxygen Requirements: Room air [place] Swallow Protocol: State: alert; + maintained across [...] Suppression therapy (PPI, H2 Blockers) X Education: CAN FILLING MACHINE OPERATOR educated patient and RN on results/recommendations and [...] bedside. The patient is unable to pass the[place] Swallow Protocol as she was unable to consecutive consume 3 ounces of water. Patient presents with no overt s/s of cardiopulmonary distress/decline with PO throughout session. The patient has low risk factors for developing aspiration related complications. Instrumental swallowing assessment is not indicated at this time. Recommend Regular Diet and Thin Liquids. No skilled CAN FILLING MACHINE OPERATOR services indicated for dysphagia management. PLAN: Treatment [...] at discharge for cognition - Discharge Recommendation: [facility] Sandy Flores MA, [facility]CAN FILLING MACHINE OPERATOR Speech Language Pathologist Office [phone] * Shira Palacio, OT - 08/23/2023 11:52 AM EDT OCCUPATIONAL THERAPY PROGRESS SUMMARY Patient seen from [...] location. Identifies date as . Requires cues duringsession for sequencing, safety, problem-solving, attention. UE Status: grossly WFL for mobility/ADLs Self Care: Assistance Level NA Dep Max Mod Min CG CS DS NV I Set-Up Cues Comment Feeding x NPO [...] With Patients permission ordered no equipment via [employer] Order. If any questions contact [facility] DME Provider at [phone]. 08/23/2023 6 Clicks Daily Activity OT Help [...] Guard Assist/Supervision 4 - Non = Modified [place]/Independent ASSESSMENT: Recommend further therapy services in a Skilled Rehab Setting once medically cleared. Will continueto follow patient while in hospital as appropriate. [...] compliance with safe transfers and mobility Revised Prison Goals 08/23/23 Goals (to be achieved by [...] NA = Not Assessed, I = Independent, NV = Modified Independent, Sup = Supervised, Set up = Physical Assistance for Set-up Only, Min = Minimal Assistance, Mod = Moderate Assistance, Max = Max assistance; Dep = Dependent; AROM = Active Range of Motion;PROM=Passive Rangeof Motion; MMT = Manual Muscle Test; Shld= Shoulder; Add = Adduction; Abd = Abduction * Rain Little - 08/22/2023 3:37 PM EDT PHYSICAL THERAPY PROGRESS SUMMARY Patient seen from [...] Dep Max Mod Min CG CS DS NV I Comment Supine to sit x Increase [...] *Pt static stands w/ rolling walker while COASTAL AND ESTUARY SPECIALIST completes pericare d/t bowel incontinence Patient/Family Education: Patient instructed in sitting in chair for 1 hour and to call for nursingassist when ready to return to bed. Notified Rn that pt is in chair . Patient up in chair with call light in reach. Chair alarm intact. DME: With Patients permission ordered no equipment via [employer] Order. If any questions contact [facility] DME Provider at [phone]. 08/22/2023 6 Clicks Basic Mobility PT Difficulty [...] ASSESSMENT: Recommend further therapy services in a Jail Setting once medically cleared.Will continue to follow patient while in hospital [...] established Plan of Care Rain VALVERDE Beeper #[phone] NA = Not Assessed, I = Independent, NV = Modified Independent, Sup = Supervised, Set up = Physical Assistance for Set-up Only, Min = Minimal Assistance, Mod = Moderate Assistance, Max = Maximal assistance; Dep = Dependent; AROM = Active Range of Motion; PROM = Passive Range of Motion; MMT = Manual Muscle Test * Chandan Varela, RD - 08/22/2023 3:09 PM EDT Images from the original note were not included. Follow Up Adult Inpatient Nutrition Assessment Reason for visit: 7 Day Follow-Up Nutrition Assessment: Nutritionally Significant Meds: cerovite, miralax, margaret Labs: Basic Metabolic Panel Na K Cl CO2 Gap Glu BUN Cr Ca Mg PO4 08/22/23436 1.8 08/22/23436 3.0 08/22/23436 137 4.2 104 27 10 [...] 3.2 oz Estimated needs: of admit wt [id number] kcal/d 20-25 kcal/kg [MSJ 1298] 73-90g pro/d [...] change in mental status with worsening expressive aphasiaand right-sided weakness. EEG started and NCC consulted. [...] of visit, observed pump running @ goal of45 cc/hr. Per RN, Pt tolerating feeds well. [...] 3. Weekly weights Will continue to follow Chandan Varela RD, LD Personal Pager [phone] District Ranger Pager: [phone] * Digna Blank COTA - 08/20/2023 1:18 PM EDT OCCUPATIONAL THERAPY PROGRESS SUMMARY Patient seen from [...] Dep Max Mod Min CG CS DS NV I Set-Up Cues Comment Feeding x NPO [...] Guard Assist/Supervision 4 - Non = Modified Dixie/Independent ASSESSMENT: Recommend further therapy services in a [...] NA = Not Assessed, I = Independent, NV = Modified Independent, Sup = Supervised, Set up = Physical Assistance for Set-up Only, Min = Minimal Assistance, Mod = Moderate Assistance, Max = Max assistance; Dep = Dependent; AROM = Active Range of Motion;PROM=Passive Rangeof Motion; MMT = Manual Muscle Test; Shld= Shoulder; Add = Adduction; Abd = Abduction * Lillian Liao, PT - 08/20/2023 12:35 PM EDT PHYSICAL THERAPY PROGRESS SUMMARY Patient seen from 10:40am to 11:04am on GC5E unit for 24 minute treatment. Co- session with OT necessary for safe and professional assist with mobility assessment and training. SUBJECTIVE: Patient Subjective/Goals: Ruh. R-U-H. 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: Obese, IV, Kunz, and Sequential Compression Devices (SCDs) Behavior: Awake, Cooperative. A&Ox 3. Delayed processing, flat affect. Pain: Site/Location: denies pain Mobility NA Dep Max Mod Min CG CS DS NV I Comment Supine to sit x Min [...] With Patients permission ordered no equipment via [employer] Order. If any questions contact [facility] DME Provider at [phone]. 1/10/2024 6 Clicks Basic Mobility PT Difficulty turning [...] levels. Recommend further therapy services in a Jail Setting once medically cleared. Will continue to [...] NA = Not Assessed, I = Independent, NV = Modified Independent, Sup = Supervised, Set up = Physical Assistance for Set-up Only, Min = Minimal Assistance, Mod = Moderate Assistance, Max = Maximal assistance; Dep = Dependent; AROM = Active Range of Motion; PROM = Passive Range of Motion; MMT = Manual Muscle Test * Alexsander Lee OT - 08/18/2023 10:55 AM EDTAssociated Order(s): IP OCCUPATIONAL THERAPY SERVICE REQUEST Occupational Therapy Consult received. Patient currently on caseload. Will continue to follow per POC. Current recommendations are for SNF. Alexsander Lee OTR/L * Vickie Pete, PT - 08/16/2023 3:37 PM EDTAssociated Order(s): IP PHYSICAL THERAPY SERVICE REQUEST PHYSICAL THERAPY PROGRESS SUMMARY Patient seen from 3:00 to 3:10 on 5W unit for 10 minute treatment. Nurse asked for patient to remain in bed due to leaving for MRI soon. Medical Updates: 08.14.23: Left-sided bur holes x2 for evacuation of mmklaswg-gk-watemmg subdural hematoma. 2. Placement of left-sided subgaleal drain 08.15.23:Cerebral angiogram with LMMA embolization SUBJECTIVE: Patient Subjective/Goals: Carly re: What is your name. Patient not oriented to place or date. Patient not able to speak. Patient saying yes to all choices. 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 If any questions contact [facility] DME Provider at [phone]. 08/16/2023 6 Clicks Basic Mobility PT Difficulty [...] ASSESSMENT: Recommend further therapy services in a Jail Setting once medically cleared.Will continue to follow patient while in hospital [...] Plan of Care Vickie Pete, PT, DPT #[id number] NA = Not Assessed, I = Independent, NV = Modified Independent, Sup = Supervised, Set up = Physical Assistance for Set-up Only, Min = Minimal Assistance, Mod = Moderate Assistance, Max = Maximal assistance; Dep = Dependent; AROM = Active Range of Motion; PROM = Passive Range of Motion; MMT = Manual Muscle Test * Aurea Parra OT - 08/16/2023 1:58 PM EDT TICU OT Attempted OT visit Patient not medically appropriate per discussion with RN. Will re-attempt at next available opportunity. Aurea MOE, OTR/L Pager: [phone] Secure chat preferred * Delores Garcia RD - 08/16/2023 12:06 PM EDTAssociated Order(s): NUTRITION NEW CONSULT Images from the [...] Light Yellow Appearance Turbid pH 6.0 Spec [place] 1.018 Protein 20 Blood Negative Bilirubin Negative [...] NPO Nutrition Focused Physical Exam Muscle loss: [place] region: slight depression Clavicle region: visible bone with some protrusion Scapula region: mild depression Anterior thigh: well rounded Posterior calf: well developed Fat loss: Orbital region: slightly dark confederated salish/somewhat hollow look Tricep/bicep region: ample fat tissue [...] 3.2 oz Estimated needs: of admit wt [id number] kcal/d 20-25 kcal/kg [MSJ 1298] 90g pro/d [...] some mild muscle loss in UEs - unc lear if acutely related to injury vs chronic [...] stopped - can consider 150 mL water [id number] - CAN FILLING MACHINE OPERATOR consult after failed bedside swallow, acute on [...] demetria, 62g protein Delores Garcia RD, LD, [facility] Personal Pager: [phone] (Mon-Fri 7a-3:30p) Nutrition District Ranger Pager (evenings/weekends 7a-7p): [phone] Dietitian vs DietaryTech: Dietitian and Honing Machine Operator Semiautomatic * Emmanuel Yuan MD - 08/15/2023 6:09 PM EDTAssociated Order(s): IP NEUROCRITICAL CARE CONSULT Images from [...] Resource Strain: Low Risk (05/04/2023) Received from [facility] Overall Financial Resource Strain (CARDIA) Difficulty of Paying Living Expenses: Not hard at all Food Insecurity: No Food Insecurity (05/04/2023) Received from [facility] Hunger Vital Sign Worried About Running Out of Food in the Last Year: Never true Ran Out of Food in the Last Year: Never true Transportation Needs: No Transportation Needs (05/04/2023) Received from [facility] PRAPARE - Transportation Lack of Transportation (Medical): [...] - including independent interpretation of results when notreported separately) Referring/communicating with other health home health care physician - when not reported separately Charting in [facility] Benjamin Yuan MD [facility] service pager (for CCP consults): [phone] * Dcmontez Daina, PT - 08/15/2023 1:33 PM EDT Physical Therapy Clinical update: s/p OR on 08/14/23 for L sided [place] holes for SDH evacuation. DONAL drain placed [...] Wheeled walker - however pt unable to beef splitter with RUE Ambulation: 2' with Wheeled walker with unable to grasp with R UE for proper use with mod A x2, shuffling, significant R lean Patient education: Calling for assist for all mobility while in hospital , oriented to upcoming proceedure Pt sitting in chair at bedside after rx. with call light in reach. Pt instructed to call for asssistance with all mobility. [place] pressure alarm intact. RN aware 08/15/2023 6 [...] and decline in functional mobility this date. Ptpending MMA embolization. Will continue to follow. Recommend further therapy services in a Jail Setting once medically cleared. Will continue to [...] Continue PT per POC Daina Bourgeois PT [phone] * AlvaradoSkyla - 08/15/2023 12:08 PM EDT Dietitian vs DietaryTech: Dietary TechDiet Home Companion Nutrition Screening Reason for visit: LOS 5 [...] At this time, patient is at low nutritionrisk. DTR to provide routine follow up. Will continue to follow, BHARATI Zabala (Nutrition) Pager #[phone]. * Aurea Parra, OT - 08/15/2023 11:38 AM EDT OCCUPATIONAL THERAPY PROGRESS SUMMARY Clinical update: 08/14/23 left sided katty holes for evacuation of SDH by Dr Li 08/15/23 plan for MMA embolization Patient seen from 839 to 902 on 5 [place] unit for 23 minute treatment. SUBJECTIVE: Patient [...] Dep Max Mod Min CG CS DS NV I Set-Up Cues Comment Feeding Grooming/ Hygiene [...] Guard Assist/Supervision 4 - Non = Modified Dixie/Independent ASSESSMENT: Recommend further therapy services in a Skilled Rehab Setting once medically cleared. Will continueto follow patient while in hospital as appropriate. [...] per Initial Evaluation. Aurea MOE, OTR/L Pager: [phone] Secure chat preferred NA = Not Assessed, I = Independent, NV = Modified Independent, Sup = Supervised, Set up = Physical Assistance for Set-up Only, Min = Minimal Assistance, Mod = Moderate Assistance, Max = Max assistance; Dep = Dependent; AROM = Active Range of Motion;PROM=Passive Rangeof Motion; MMT = Manual Muscle Test; Shld= Shoulder; Add = Adduction; Abd = Abduction * Vickie Pete, PT - 08/14/2023 3:19 PM EDT Physical Therapy Note Attempted to see patient, however patient just returned from OR, not able to be seen per nurse. 6.4.24: s/p left sided katty holes for evacuation of subdural hematoma Will continue to follow. Vickie Pete, PT, DPT #[id number] * Aurea Parra OT - 08/13/2023 10:55 AM EDTAssociated Order(s): IP OCCUPATIONAL THERAPY SERVICE REQUEST OCCUPATIONAL THERAPY INITIAL EVALUATION Patient seen from 1018 to 1038 on 5 [place] unit for 20 minutes. Co-evaluation with PT [...] Dep Max Mod Min CG CS DS NV I Set-Up Comment Feeding x Anticipated Patient is NPO Grooming/Hygiene x Wash face/hands Bathing:UB x Anticipated Bathing:LB x Anticipated Dressing:UB x Don gown Dressing: LB x Don socks Toileting x External catheter Incontinence care Transfers/Bed Mobility: Assistance Level Dep Max Mod Min CG CS DS NV I Set-Up Comment Toilet Transfers x2 Anticipated Bed Transfers x2 Sit to stand Stand to sit in chair Bed Mobility x2 Supine to sit EOB Ambulation x2 Few steps between bed and chair using walker Max V/T cues Assist to maneuver walker Assist for weight shifting Patient remained seated in bedside chair end of session with chair alarm and chair cushion in place. Call cuevas and telephone within reach. Patient [...] Guard Assist/Supervision 4 - Non = Modified Dixie/Independent ASSESSMENT: Recommend further therapy services in a Skilled Rehab Setting once medically cleared. Will continueto follow patient while in hospital as appropriate. [...] the development of plan and goals. Aurea MOE, OTR/L Pager: [phone] Secure chat preferred NA = Not Assessed, I = Independent, NV = Modified Independent, Sup = Supervised, Set up = Physical Assistance for Set-up Only, Min = Minimal Assistance, Mod = Moderate Assistance, Max = Max assistance; Dep = Dependent; AROM = Active Range of Motion;PROM=Passive Rangeof Motion; MMT = Manual Muscle Test; UB = Upper Body; LB = Lower Body * Vickie Pete, PT - 08/13/2023 10:54 AM EDTAssociated Order(s): IP PHYSICAL THERAPY SERVICE REQUEST PHYSICAL THERAPY ACUTE EVALUATION Referral received, chart reviewed. Patient seen from 10:18 to 10:36 on 5W unit for 18 minutes. Eval + treat Eval + treat. Co-eval withOT. Patient required the skills of two therapists [...] name and date of . and patient's idband and date of . Risks and Benefits of physical therapy: Patient informed of risks and benefits of treatment SUBJECTIVE: Patient Subjective: okay re: lets sit up Patient Identified Goal(s): to walk COASTAL AND ESTUARY SPECIALIST Status: amb with RW Unreliable historian, patient presenting with aphasia Home: ? steps to enter ? steps to bedroom/bathroom Assistance available: currently at SNF. Per chart, patient has a daughter Equipment available: ? 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, pipeline systems operator, Pulse Oximeter, Oxygen, IV, and Sequential Compression [...] With Patients permission ordered no equipment via [employer] Order. If any questions [facility] Provider at [phone]. 08/13/2023 6 Clicks Basic Mobility PT Difficulty [...] quality/tolerance, transfer skills and strengthening to enhance functionalmobility and safety. Recommend further therapy services in a Jail Setting once medically cleared. Will continue to [...] with the plan. Vickie Pete PT, DPT #[id number] NA = Not Assessed, I = Independent, NV = Modified Independent, Sup = Supervised, Set up = Physical Assistance for Set-up Only, Min = Minimal Assistance, Mod = Moderate Assistance, Max = Max assistance; Dep = Dependent; AROM = Active Range of Motion; PROM = Passive Range of Motion; MMT = Manual Muscle Test; LE = Lower Extremity * Vignesh Galvin PA-C - 08/13/2023 12:20 AM EDT Images from the original note were not included. NEUROSURGERY CRANIAL TRAUMA H&P Patient Name: Carly Marcelino Primary Care Physician: No primary care provider on file. CONSULTED BY: Trauma CONSULTED FOR: Mixed density L hemispheric SDH CHIEF COMPLAINT: S/p AMS HPI: Pt is an 83 year old female with PMH of HTN, CAD (NSTEMI, stent in RCA, takes ASA 81), carotidstenosis brought in as transfer from OSH ED s/p AMS. Upon arrival to OSH a CTH was conducted which shows a mixed density left hemispheric subdural hematoma measuring up to 2.2 cm at greatest thickness with increased mass effect upon the underlying brain parenchyma and resultant 1.2 cm left to rightmidline shift for which NSGY was consulted. Of note, patient had GLF 2 weeks ago, was found to havea subdural and was admitted; no midline shift [...] not year) PERRL EOMI FS TM BUE: /, no drift BLE: 07/14 PHYSICAL EXAM: Vitals: [...] minutes of consult and discussed with the staffDr. Dalton Galvin PA-C Neurosurgery Pager: [phone] Split/Shared Documentation I approve the management plan for this patient and take responsibility for the plan as documented. Independent Interpretation of Tests Performed by Another Physician/ASH: I personally performed, reviewed, and interpreted CTH with findings of L mixed density SDH with MLS. Vignesh Galvin PA-C documented in this [id number] Progress note* Discharge Planning Note - Palmer Sanchez LSW - 08/24/2023 10:36 AM EDT CASE MANAGEMENT/SOCIAL WORK SNF DC NOTE: Pt has been cleared for transfer to SNF on this date Pt will be transferred to [facility] via [facility] G[facility] ([id number]) at 2pm Nursing report may be called to Please call report to [phone] station 1 Support person notified: HEBERT ALVAREZ (Daughter) [phone] Patient/Family, team aware of above and agreeable. For discharge, please ensure the following is completed: MD to place DC order, reconcile meds, and print narcotics to go with patient to SN[facility] to print Discharge Summary, Orr, Summary of Care, Narcotic Scripts, and Signature Page and place in a packet to be given to car pick up driver If transport/discharge needs to be adjusted/cancelled, team (/RN) to cancel transport, update support person, and update receiving facility. [id number] Miscellaneous Notes* Discharge Planning Note - Palmer Sanchez LSW - 08/24/2023 10:36 AM EDT CASE MANAGEMENT/SOCIAL WORK SNF DC NOTE: Pt has been cleared for transfer to SNF on this date Pt will be transferred to [facility] via [facility] ([id number]) at 2pm Nursing report may be called to Please call report to [phone] station 1 Support person notified: HEBERT ALVAREZ (Daughter) [phone] Patient/Family, team aware of above and agreeable. For discharge, please ensure the following is completed: MD to place DC order, reconcile meds, and print narcotics to go with patient to SNF [facility] to print Discharge Summary, Orr, Summary of Care, Narcotic Scripts, and Signature Page and place in a packet to be given to car pick up driver If transport/discharge needs to be adjusted/cancelled, team (/RN) to cancel transport, update support person, and update receiving facility. * Progress Notes - NoteWriter - Keely Valadez LSW - 08/22/2023 1:57 PM EDT SW SDU NOTE Per interdisciplinary rounds, Pt medically ready for SNF. Per MD, plan for Pt to return to SNF with Corepak in place and have ST follow-up Outpatient and at SNF. Plan for DC to [facility]. No pre-cert needed for DC. Per RN, intermittent roll-belt use ongoing since last night. Pt must be restraint free (including roll belt) for 24hrs prior to DC to any SNF. NICHO Ring LSW Inpatient Glass Installer Technician P: [phone] * Treatment Plan Note - Binh Hart MD - 08/21/2023 8:59 AM EDT Notified by primary team that patient will be discharging to SNF today. Plan: -Trauma primary, dispo per primary -OK for Diet -Continue Keppra per NCCU reccs -Hold home ASA until NSGY f/u this week -OK for SCDs and SQH -Patient OK for discharge from NSGY perspective, will see patient in clinic this week. Binh Hart MD Neurosurgery, Resident Pager: [phone] 08/21/2023 - 9:01 AM Please page the on-call pager after 6pm and on weekends * Care Plan Note - John Vick RN - 08/20/2023 2:40 PM EDT Problem: Routine Care: Goal: Patient care will [...] alarm in place, call light in reach. * Care Plan Note - Darlene Dahl RN - 08/19/2023 7:57 AM EDT Problem: Routine Care: Goal: Patient care will [...] Free from injury during hospitalization Outcome: Progressing * Care Plan Note - Darlene Dahl RN - 08/18/2023 8:21 AM EDT Problem: Routine Care: Goal: Patient care will [...] Free from injury during hospitalization Outcome: Progressing * Care Plan Note - Avani Noonan RN - 08/17/2023 4:15 PM EDT Problem: Routine Care: Goal: Patient care will [...] follows commands. Has not been able to verballyanswer questions. Will continue to monitor. 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 plan: TBD, hope for plan to DC with family Other hospital admissions within the past 60 days: Yes at [facility] on 07/29/23 Other pertinent problems: PATRICIA Valdez LISW * Care Plan Note - Ketan Vieyra RN - 08/16/2023 4:52 PM EDT Problem: Routine Care: Goal: Patient care will [...] Free from injury during hospitalization Outcome: Progressing * Pre-Procedure Note - Royce Casarez MD - 08/15/2023 1:27 PM EDT Pre-Procedure Note HISTORY: Procedure: LMMA embolization Indication: [...] Directives (Living will, health care power of collections attorney): none Patient Recent Code Status: Full Code Code Status For This Procedure: Full Code Royce Casarez MD Radiology * Care Plan Note - Ketan Vieyra RN - 08/15/2023 10:30 AM EDT Problem: Routine Care: Goal: Patient care will [...] Free from injury during hospitalization Outcome: Progressing * OP Note - Artem Li MD - 08/14/2023 7:37 PM EDT Neurosurgery Operative Note Name: CARLY MARCELINO MR#: [id number] ENC#: [id number] Date of Procedure: 08/14/2023 ATTENDING SURGEON: Artem Li MD FIRST SURGEON: Misael Snowden MD. PREPROCEDURE DIAGNOSIS: Left gywoq-gu-zfqpzyz subdural hematoma with brain compression midline shift. POSTPROCEDURE DIAGNOSIS: Left btpne-eg-wajcrxy subdural hematoma with brain compression midline shift. ANESTHESIA: General endotracheal anesthesia. PROCEDURES: 1. Left-sided bur holes x2 for evacuation of eixvggrm-dp-djhavny subdural hematoma. 2. Placement of left-sided subgaleal [...] confusion. Repeat CT head was obtained, which demonstrateda new chronic subdural hematoma with a small residual subacute acute component with brain compression and midline shift. Given the imaging findings and neurological exam change, she was recommended for surgical intervention. All risks, benefits and alternatives of surgery discussed with the patient's daughter, who agreed to proceed with the operation. Informed consent was documented separately inthe medical record. FINDINGS: Please see procedure note [...] preoperative time-out was completed. The patient identified, equ ipment confirmed, procedure confirmed, and intravenous antibiotics were administered prior to incision. We made an incision over the left side of the skull in the frontal and parietal incision sites using a #10 scalpel blade. Soft tissues dissected using Bovie and bipolar electrocautery. We placed self-retaining retractors. Then, using a high-speed drill with bicycle technician bit, we performed one left frontal and [...] quadrants until clear backwash was achieved. We wereable to visualize the cortical surface of the [...] Drain. IMPLANTS: None. COMPLICATIONS: None. MD JUSTIN Priest/MedMarielle/Dict: 08/14/2023 14:10:59 TRANS: 08/14/2023 15:35:14 JOB: [id number] DictJob#: [id number] * Brief Operative Note - Jolene Snowden MD - 08/14/2023 1:18 PM EDT Brief Operative Note MAIN OR 02 Carly Marcelino 83 year old female Surgical Contact Serial Number: [id number] Preoperative Diagnosis: Pre-op Diagnosis * SDH (subdural hematoma) (HCC) [S06.5XAA] Postoperative Diagnosis: * SDH (subdural hematoma) (HCC) [S06.5XAA] Procedures: left sided katty holes for evacuation of subdural hematoma No data filed Surgeon(s): Surgeon(s): Artem Li MD Staff: Scrub: Edson Pierre RN Chiropractic Care Nurse: Shital Gonsalves RN; Amilcar Kasper RN Public Health Social Worker: Binh Hart MD; Jolene Snowden MD Anesthesia: General Anesthesiologist: Leora Fleming MD Cafe Lead: Jeremiah Ochoa MD Anesthesia Staff: Lima Whittaker CAA Specimen(s): * No specimens in log * Estimated Blood Loss: 20cc Lines/Drains: Peripheral IV Access: 08/12/23 192 20 gauge Anterior;Right (Active) Site Assessment WNL;Dressing intact 08/14/23 1200 Infusion Status Port #1 Capped;Patent 08/14/231199 Peripheral IV Access: 08/12/231999 18 gauge x 1.88 inch Right Antecubital [...] by Jolene Snowden MD 08/14/2023 2:03 PM * Blood Attestation - Leora Fleming MD - 08/14/2023 12:09 PM EDT Blood Attestation: ATTESTATION OF INFORMED CONSENT FOR BLOOD: The transfusion of blood and/or blood components were discussed with the patient and/or legal sales representative aircraft. The risks, benefits and alternatives were reviewed. Questions regarding blood transfusions were answered. The patient /or the patient s legal sales representative aircraft agree with the plan for transfusion of blood and/or blood components. * Treatment Plan Note - Binh Hart MD - 08/14/2023 7:00 AM EDT Consent obtained for Left-sided Katty hole evacuations with Dr. Li as staff. Clarified code status with patient's daughter (Hebert Alvarez): patient is to remain full code both perioperatively and while in the unit at this time. Binh Hart MD Neurosurgery, Resident Pager: [phone] 08/14/2023 - 7:01 AM Please page the on-call pager after 6pm and on weekends * Care Plan Note - Ketan Vieyra RN - 08/13/2023 10:57 AM EDT Problem: Routine Care: Goal: Patient care will [...] Free from injury during hospitalization Outcome: Progressing * Care Plan Note - Agnieszka Moctezuma DO - 08/13/2023 1:40 AM EDT Division of Trauma, Surgical Critical Care, EGS Ticket to Roll Note . Report called to Dr Richie Emmanuel who is the RUP The patient is transferring from ED, room # 1, to TICU, room # 210. The patient was added to the Trauma Surgery list. Agnieszka Moctezuma DO RUP = Receiving unit provider RNF = Regular nursing floor documented in this [id number] Hospital Discharge instructions* Discharge Instructions* Derick Edwards APRN-MANUFACTURERS REPRESENTATIVE - 08/23/2023 1:38 PM EDT Discharge Instructions: Date of admission: 08/12/2023 Date of discharge: 08/24/2023 [address] are being discharged to [facility] Follow up: - Please call to [...] primary care physician or establishing care at [facility] if you do not already have one. [...] IMMEDIATELY. Alternatively, you may come into the [facility] Emergency Department IMMEDIATELY for an emergent evaluation [...] head prior to appointment, which is ordered) CAN FILLING MACHINE OPERATOR Recommendations/Meals: - Recommend Regular Diet with Thin [...] not have a primary physician please call [phone] for guidance on finding a [facility] provider. If you have questions or concerns , if your condition worsens or you develop new symptoms please call the [facility] Line at [phone]. * Attachments The following attachments cannot be sent through Care Everywhere. * Subdural Hematoma Discharge Instructions (Haitian) * Traumatic Brain Injury (Haitian) documented in this [id number] Consult note* Shira Palacio OT - 08/23/2023 11:52 AM EDT OCCUPATIONAL THERAPY PROGRESS SUMMARY Patient seen from [...] location. Identifies date as . Requires cues duringsession for sequencing, safety, problem-solving, attention. UE Status: grossly WFL for mobility/ADLs Self Care: Assistance Level NA Dep Max Mod Min CG CS DS NV I Set-Up Cues Comment Feeding x NPO [...] With Patients permission ordered no equipment via [employer] Order. If any questions contact [facility] DME Provider at [phone]. 08/23/2023 6 Clicks Daily Activity OT Help [...] Guard Assist/Supervision 4 - Non = Modified [place]/Independent ASSESSMENT: Recommend further therapy services in a Skilled Rehab Setting once medically cleared. Will continueto follow patient while in hospital as appropriate. [...] compliance with safe transfers and mobility Revised Prison Goals 08/23/23 Goals (to be achieved by [...] NA = Not Assessed, I = Independent, NV = Modified Independent, Sup = Supervised, Set up = Physical Assistance for Set-up Only, Min = Minimal Assistance, Mod = Moderate Assistance, Max = Max assistance; Dep = Dependent; AROM = Active Range of Motion;PROM=Passive Rangeof Motion; MMT = Manual Muscle Test; Shld= Shoulder; Add = Adduction; Abd = Abduction [id number] History of Present illness Narrative* Palmer Sanchez LSW - 08/23/2023 9:53 AM EDT Social Work Progress Note Pt is rec for dc to SNF. Pt was accepted by [facility] Pt is medically clear. Pt will not need precert. Pt will need to be restraint free (including roll belt and mitts) 24hrs prior to dc SW will continue to follow ILIANA Ortiz * Derick Edwards APRN-MANUFACTURERS REPRESENTATIVE - 08/23/2023 6:33 AM EDT Images from the original note [...] patient. Pulled out corpak last evening, requiring re- application of restraints. However, very pleasant this morning and excited when notified she is nearing discharge. Restraints removed ~0600 per staff counsel. Tolerating TF, voiding spontaneously. Labs: No significant [...] (0.3 mL/kg/hr)] Net: -46 Weight: 80.8 kg PHYSICAL EXAM GENERAL: Sitting up in chair, no distress. [...] 104 25 0.59 9.0 ASSESSMENT & PLAN Diagnosis s/p Acute on chronic SDH: Subdural acute on chronic with new midline shift Acute post-op pain Acute blood loss anemia AMS Severe encephalopathy and cortical dysfunction on EEG Embolic infarcts PMHx HTN, CAD (NSTEMI, stent in RCA, takes ASA 81 mg), carotid stenosis, previous fall resulting inSDH Plan: Neurological: Acute on chronic subdural hematoma, worsening midline shift; acute post-op pain; OR 08/13 for L Katty hole and embolization 08/14; later developed AMS [...] - Continue Tylenol 650 mg q6h - CAN FILLING MACHINE OPERATOR consult for repeat cog eval HEENT: - Sutures to L forehead - placed 08/13 - Peridex swish & spit BID Cardiovascular: [...] will remain in place at DC with CAN FILLING MACHINE OPERATOR follow-up; tolerating TF regimen - Nutrition on [...] re-application of restraints (must be restraint free for24 hours). Follow-ups: - Follow-up with Urology due to kunz catheter placement - Follow up with OP Neurology (Dr. Franco) - Follow up with NSGY (holding home ASA through follow-up with Dr. Li) - No indication for Trauma follow-up LIBBY Rodriguez Trauma and Acute Care Surgery ASH ASH Pager: [phone] For urgent issues arising after 6PM, please page [phone]. Plan discussed with Trauma Floor Attending, Dr. Arredondo. * Johann Hernandez MD - 08/22/2023 3:05 PM EDT Images from the original note [...] change in mental status with worsening expressive aphasiaand right-sided weakness. EEG started and NCC consulted. [...] (0.1 mL/kg/hr)] Net: 1196 Weight: 80.8 kg PHYSICAL EXAM Constitutional: No acute distress. Cardiovascular: Well perfused, good peripheral pulses. Pulmonary/Chest: No increased work of breathing on RA Abdominal: Soft. Non-distended. Non-tender. +corpak Musculoskeletal: No edema. Neurological: GCS 15, confused at baseline AOX2 LABORATORY RESULTS (LAST 24 HOURS) CBC/PT/INR WBC RBC Hgb Hct MCV RDW Plt PT aPTT INR 08/22/23436 6.6 3.11 9.2 28.4 91 15.1 285 Basic Metabolic Panel Na K Cl CO2 Gap Glu BUN Cr Ca Mg PO4 08/22/23436 1.8 08/22/23436 3.0 08/22/23436 137 4.2 104 27 10 100 30 0.61 8.8 ASSESSMENT & PLAN Diagnosis s/p Acute on Chronic SDH: subdural [...] after 5PM, please page the trauma resident production honing machine operator at [phone]. Plan discussed with attending Dr. Arredondo * Palmer Sanchez LSW - 08/21/2023 4:26 PM EDT Social Work Progress Note Pt is rec for dc to SNF. Pt was accepted by [facility] Pt is still pending medical clearance. Pt will not need precert. Pt will need to be restraint free (including roll belt) 24hrs prior to dc SW will continue to follow ILIANA Ortiz * Johann Hernandez MD - 08/21/2023 8:47 AM EDT Images from the original note [...] change in mental status with worsening expressive aphasiaand right-sided weakness. EEG started and NCC consulted. [...] (0.5 mL/kg/hr)] Net: 320 Weight: 80.8 kg PHYSICAL EXAM Constitutional: No acute distress. Cardiovascular: Well perfused, good peripheral pulses. Pulmonary/Chest: No increased work of breathing on RA Abdominal: Soft. Non-distended. Non-tender. +corpak Musculoskeletal: No edema. Neurological: GCS 15, confused at baseline AOX2 LABORATORY RESULTS (LAST 24 HOURS) CBC/PT/INR WBC RBC Hgb Hct MCV RDW Plt PT aPTT INR 08/21/2327 7.0 3.00 9.1 27.4 91 14.9 296 Basic Metabolic Panel Na K Cl CO2 Gap Glu BUN Cr Ca Mg PO4 08/21/238 2.9 08/21/238 3.7 08/21/238 138 4.1 101 29 12 100 29 0.61 9.2 ASSESSMENT & PLAN Diagnosis s/p Acute on Chronic SDH: subdural [...] after 5PM, please page the trauma resident production honing machine operator at [phone]. Plan discussed with attending Dr. Arredondo * Johann Hernandez MD - 08/20/2023 5:54 PM EDT Images from the original note [...] change in mental status with worsening expressive aphasiaand right-sided weakness. EEG started and NCC consulted. [...] (0.8 mL/kg/hr)] Net: -562 Weight: 80.8 kg PHYSICAL EXAM Constitutional: No acute distress. Cardiovascular: Well perfused, [...] Arterial Blood Gases None ASSESSMENT & PLAN Diagnosis s/p Acute on Chronic SDH: subdural acute on chronic with new midline shift PMHx HTN, CAD (NSTEMI, stent in RCA, takes ASA 81), carotid stenosis, previous fall resulting in Subdural hematoma Plan: Neurological: acute on chronic Subdural hematoma, worsening midline shift S/p -OR for L katty hole on [facility] 08/14/23, underwent embolization 08/14 Altered [...] after 5PM, please page the trauma resident production honing machine operator at [phone]. Plan discussed with attending Dr. Arredondo * Char Adair RN - 08/20/2023 10:12 AM EDT PT/OT in room to get back out of bed to chair. Rollbelt removed and not on pt. * Palmer Sanchez LSW - 08/20/2023 10:05 AM EDT Social Work Progress Note Pt is rec for dc to SNF. SW sent referrals to [facility] T[facility] and back- up choice [facility] Pt is still pending medical clearance. Pt will not need precert. Pt will need to be restraint free (including roll belt) 24hrs prior to dc SW will continue to follow ILIANA Ortiz * Villa Burgess MD - 08/19/2023 8:20 PM EDT GENERAL INFORMATION TRAUMA FLOOR - STAFF NOTE [...] change in mental status with worsening expressive aphasiaand right-sided weakness. EEG started and NCC consulted. [...] 2700 (33.4 mL/kg) [Urine:2700 (1.4 mL/kg/hr)] Net: -1954.5 Weight: 80.8 kg PHYSICAL EXAM Constitutional: No acute distress. Cardiovascular: Well perfused, good peripheral pulses. Pulmonary/Chest: No increased work of breathing on RA Abdominal: Soft. Non-distended. Non-tender. Musculoskeletal: No edema. Neurological: GCS 15, confused at baseline LABORATORY RESULTS (LAST 24 HOURS) CBC/PT/INR None Basic Metabolic Panel None Arterial Blood Gases None ASSESSMENT & PLAN Diagnosis s/p Acute on Chronic SDH: subdural acute on chronic with new midline shift PMHx HTN, CAD (NSTEMI, stent in RCA, takes ASA 81), carotid stenosis, previous fall resulting in Subdural hematoma Plan: Neurological: acute on chronic Subdural hematoma, worsening midline shift S/p -OR for L katty hole on [facility] 08/14/23, underwent embolization 08/14 Altered [...] - difficulty urinating, kunz replaced -Failed TOV / -Replace kunz - She will need to [...] in the resident's note. Villa Burgess MD * Juan Vickie M., FLOW MACHINE OPERATOR-[facility] - 08/18/2023 10:46 AM EDT Images from the original note were not included. GENERAL INFORMATION TRAUMA FLOOR - STAFF NOTE Patient seen and examined on 08/18/2023 Patient Name: Craly Marcelino Admission Date: 08/12/2023 INTERVAL HISTORY/EVENTS Background: [...] change in mental status with worsening expressive aphasiaand right-sided weakness. EEG started and NCC consulted. [...] (0.6 mL/kg/hr)] Net: 130 Weight: 80.8 kg PHYSICAL EXAM Constitutional: No acute distress. Cardiovascular: Regular rate and rhythm Pulmonary/Chest: No increased work of breathing on RA, CTA bilaterally Abdominal: Soft. Non-distended. Non-tender. Musculoskeletal: No edema. Neurological: GCS 13, alert, intermittent following of commands, stable right- handed beef splitter strength weakness with some purposeful movement of [...] findings as described above. ASSESSMENT & PLAN Diagnosis s/p Acute on Chronic SDH: 83 [...] when clear LIBBY Browning TRauma/EGS ASH Pager [phone] Plan discussed with attending Dr. Waldo Burgess * Emmanuel Yuan MD - 08/17/2023 2:09 PM EDT Images from the original note [...] after discharge with the Neurology Clinic: Ronald Franco Visit type: 60 minute, in person or video Timing: next available Issues to address: brain injury from L SDH Call Neurology Scheduling line at [phone] to be added to the cancellation list if sooner appointment is requested. Total length of time 35 (minutes) of the encounter, exclusive of procedures. Time-based billing justifications: Reviewing (chart, labs, and other clinical notes) Obtaining history (or reviewing separately obtained history) Patient visit (including performing a medically appropriate exam) Counseling/educating the patient/family/caregiver Ordering (medications, tests, procedures - including independent interpretation of results when notreported separately) Referring/communicating with other health home health care physician - when not reported separately Charting in [facility] Benjamin Yuan MD [facility] service pager (for CCP consults): [phone] * Aurea Ventura LISW - 08/17/2023 9:55 AM EDT Social Work ICU Note Aware pt re-admitted from [facility] skilled. SW spoke with pt's NOK/emergency contact- Petr [phone]. Daughter selected SNF choices: 1) [facility] 2) [facility] Referral to be sent to [facility] when pt has medically improved to not require ICU care.No pre-cert required. No weekend DC. SCOTT or CM will continue to follow. PATRICIA Valdez LISW * Artem Li MD - 08/17/2023 6:19 AM EDT Images from the original note were not included. [facility] NEUROSURGERY PROGRESS NOTE SUBJECTIVE: EEG negative for [...] Snowden MD Neurological Surgery, PGY-2 Service Pager: [phone] 08/17/2023 - 6:19 AM Teaching Physician Note: I saw and evaluated the patient. I personally obtained the kuo and critical portions of the historyand physical exam. I reviewed the resident's documentation and discussed the patient with the resident. I agree with the resident's medical decision making as documented in the resident's note. Artem Li MD * Sammie Barriga MD - 08/17/2023 6:19 AM EDT Images from the original note [...] change in mental status with worsening expressive aphasiaand right-sided weakness. EEG started and NCC consulted. [...] mL/kg/hr); Drainage:10] Net: -773.8 Weight: 80.8 kg PHYSICAL EXAM Constitutional: No acute distress. Cardiovascular: Regular rate and rhythm Pulmonary/Chest: No increased work of breathing on RA, CTA bilaterally Abdominal: Soft. Non-distended. Non-tender. Musculoskeletal: No edema. Neurological: GCS 13, alert, intermittent following of commands, stable right- handed beef splitter strength weakness with some purposeful movement of [...] findings as described above. 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 Critical care was necessary because of an illness or injury that acutely impaired one or more vitalorgans systems such that there was a high probability of imminent or life threatening deteriorationin the patient s condition. The following organ systems are involved: neurological, electrolytes, HTN(baseline) * Delores Duarte RN - 08/17/2023 5:00 AM EDT Primary team was aware and concurred with the test or procedure prior to transport: Yes Transport equipment and supplies were maintained throughout the transport: Yes Evaluation of patient status was completed following patient transport and upon return to unit: Yes * Emmanuel Yuan MD - 08/16/2023 3:44 PM EDT Images from the original note [...] affairs without assistance Updates since last visit: ELDER Summary of Imaging & Other Pertinent Studies: [...] No evidence of seizure. Likely secondary to structuralinjury from SDH. There may be overlying delirium [...] - including independent interpretation of results when notreported separately) Referring/communicating with other health home health care physician - when not reported separately Charting in [facility] Benjamin Yuan MD [facility] service pager (for CCP consults): [phone] * Sammie Barriga MD - 08/16/2023 8:38 AM EDT Images from the original note [...] change in mental status with worsening expressive aphasiaand right-sided weakness. EEG started and NCC consulted. [...] (30.1 mL/kg) [Urine:2410 (1.2 mL/kg/hr); Drainage:20] Net: -7567 Weight: 80.8 kg PHYSICAL EXAM Constitutional: No acute distress. Currently asleep but was very agitated earlier due to corpak placement Cardiovascular: Regular rate and rhythm Pulmonary/Chest: No increased work of breathing on RA Abdominal: Soft. Non-distended. Non-tender. Musculoskeletal: No edema. 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 Critical care was necessary because of an illness or injury that acutely impaired one or more vitalorgans systems such that there was a high probability of imminent or life threatening deteriorationin the patient s condition. The following organ systems are involved: neurological- significant mental status changes, agitation, h/o HTN * Toshia Gil PA-C - 08/16/2023 5:20 AM EDT Images from the original note were not included. [facility] NEUROSURGERY PROGRESS NOTE SUBJECTIVE: PAD1 L MMA [...] improved MLS and appropriate evac of SDH. /5 L MMA embo with Dr. Casarez, uncomplicated. [...] concerns. Toshia Gil PA-C Neurosurgery Service Pager: [phone] 08/16/2023 - 7:41 AM * Toshia Gil PA-C - 08/15/2023 4:38 PM EDT Images from the original note were not included. [facility] NEUROSURGERY POST ANGIO CHECK NOTE SUBJECTIVE: Now [...] Segs% Bands% Lymphs% Monos% Eos% Basos% 08/14/23 002 79.8 10.4 7.6 1.5 0.7 08/12/231918 80.6 [...] concerns. Toshia Gil PA-C Neurosurgery Service Pager: [phone] 08/15/2023 - 4:43 PM * Palmer Sanchez LSW - 08/15/2023 4:22 PM EDT SW ICU Assessment Referral SW spoke with pt's dtr/TIFFANIK Hebert Alvarez [phone] Hx Carly Marcelino is a 83 year old [...] for dc to SNF when medically ready SW/CM aware that patient meets criteria for SNF. Called pt's dtr to discuss dispo. She was open and agreeable to SNF placement. CM/SW provided pt the quality and resource use measure data from available post- acute (PAC) providers, that best align with the patient's treatment goals and preferences from the medicare.gov comparesite for SNF. [place] of Choice was provided to the patient/patient sales representative aircraft. SW/CM will follow up for choices. SW will continue to follow ILIANA Ortiz * Ketan Vieyra RN - 08/15/2023 4:10 PM EDT Patient transported back to unit from IR after procedure with RN and PCNA without complications * Ketan Vieyra RN - 08/15/2023 2:30 PM EDT Patient transported to IR for a procedure with RN and PCNA without complication. * Sammie Barriga MD - 08/15/2023 9:01 AM EDT Images from the original note [...] mL/kg/hr); Drainage:50] Net: 1914 Weight: 80.8 kg PHYSICAL EXAM Constitutional: No acute distress. Cardiovascular: Regular rate and rhythm Pulmonary/Chest: No increased work of breathing on RA Abdominal: Soft. Non-distended. Non-tender. Musculoskeletal: No edema. 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 Critical care was necessary because of an illness or injury that acutely impaired one or more vitalorgans systems such that there was a high probability of imminent or life threatening deteriorationin the patient s condition. The following organ systems are involved: neurological, cardiovascular (HTN at baseline, unrelated to patients acute problem) * Ketan Vieyra RN - 08/15/2023 8:00 AM EDT Patient has right sided weakness with arm and leg drift. Also has no right hand beef splitter. Speech has worsened. TICU team notified * Jolene Snowden MD - 08/15/2023 6:29 AM EDT Images from the original note were not included. [facility] NEUROSURGERY DAILY PROGRESS NOTE SUBJECTIVE: No acute [...] 08/14/23 0023 79.8 10.4 7.6 1.5 0.7 08/12/23 1919 80.6 10.6 6.2 2.2 0.5 Basic Metabolic [...] with nods PERRL EOMI FS TM BUE: 5/5, no drift BLE: wiggles toes, no antigravity movement today A: Pt is a 83 year old year old female PMH of HTN, CAD (NSTEMI, stent in RCA, takes ASA 81), carotid stenosis brought in as transfer from OSH ED s/p AMS. Upon arrival to OSH a CTH was conducted whichshows a mixed density left hemispheric subdural hematoma [...] Snowden MD Neurological Surgery, PGY-2 Service Pager: [phone] 08/15/2023 - 6:30 AM * Sammie Barriga MD - 08/14/2023 3:58 PM EDT Images from the original note [...] (0.6 mL/kg/hr)] Net: 897.5 Weight: 80.8 kg PHYSICAL EXAM Constitutional: No acute distress. 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 Critical care was necessary because of an illness or injury that acutely impaired one or more vitalorgans systems such that there was a high probability of imminent or life threatening deteriorationin the patient s condition. The following organ systems are involved: neurological * Binh Hart MD - 08/14/2023 2:04 PM EDT NEUROSURGERY POST-OPERATIVE NOTE Intval HPI: Patient is [...] Snowden MD Neurological Surgery PGY-2 Service Pager: [phone] 08/14/2023 - 2:04 PM * Toshia Gil PA-C - 08/14/2023 6:32 AM EDT Images from the original note were not included. [facility] NEUROSURGERY DAILY PROGRESS NOTE SUBJECTIVE: No acute [...] arrival to OSH a CTH was conducted whichshows a mixed density left hemispheric subdural hematoma [...] available for procedure. Will reconsent family with . OR continues as planned. -NPO -Pre-op labs completed -Continue home Keppra -SBP <170 per trauma guidelines -Hold home ASA -Hold all antiplatelets/anticoagulants -Plts >100, INR <1.4 -Normonatremia, normothermia, euvolemia -SCDs only at this time for DVT prophylaxis. Hold SQH at this time. Toshia Gil PA-C Neurosurgery Service Pager: [phone] 08/14/2023 - 6:33 AM * Sammie Barriga MD - 08/13/2023 8:52 AM EDT Images from the original note [...] (0.4 mL/kg/hr)] Net: 55 Weight: 80.8 kg PHYSICAL EXAM Constitutional: No acute distress. Cardiovascular: Regular rate and rhythm Pulmonary/Chest: No increased work of breathing on RA Abdominal: Soft. Non-distended. Non-tender. Musculoskeletal: No edema. Neurological: GCS 14, alert, oriented to self LABORATORY RESULTS (LAST 24 HOURS) CBC/PT/INR WBC RBC Hgb Hct MCV RDW Plt PT aPTT INR 08/13/23258 6.9 3.28 10.0 30.0 92 14.6 311 [...] Right lateral ventricular entrapment. 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 Critical care was necessary because of an illness or injury that acutely impaired one or more vitalorgans systems such that there was a high probability of imminent or life threatening deteriorationin the patient s condition. The following organ systems are involved: neurological * Richie Emmanuel MD - 08/13/2023 2:18 AM EDT Division of Trauma, Surgical Critical Care, EGS Ticket to Roll Note . Provider Called Report To (Enter Provider Name, Service, and Time): amy Calvillo, 0023, who is the RUP. The patient is transferring from ED, room # 01, to TICU. The patient was added to the Trauma Surgery list. Richie Emmanuel MD RUP = Receiving unit provider RNF = Regular nursing floor documented in this [id number] Consult note* Rain Little - 08/22/2023 3:37 PM EDT PHYSICAL THERAPY PROGRESS SUMMARY Patient seen from [...] Dep Max Mod Min CG CS DS NV I Comment Supine to sit x Increase [...] *Pt static stands w/ rolling walker while COASTAL AND ESTUARY SPECIALIST completes pericare d/t bowel incontinence Patient/Family Education: Patient instructed in sitting in chair for 1 hour and to call for nursingassist when ready to return to bed. Notified Rn that pt is in chair . Patient up in chair with call light in reach. Chair alarm intact. DME: With Patients permission ordered no equipment via [employer] Order. If any questions contact [facility] DME Provider at [phone]. 08/22/2023 6 Clicks Basic Mobility PT Difficulty [...] ASSESSMENT: Recommend further therapy services in a Jail Setting once medically cleared.Will continue to follow patient while in hospital [...] established Plan of Care Rain VALVERDE Beeper #[phone] NA = Not Assessed, I = Independent, NV = Modified Independent, Sup = Supervised, Set up = Physical Assistance for Set-up Only, Min = Minimal Assistance, Mod = Moderate Assistance, Max = Maximal assistance; Dep = Dependent; AROM = Active Range of Motion; PROM = Passive Range of Motion; MMT = Manual Muscle Test [employer] Work Phone: 1(326) 877-284606-12-2024 Consult note* Chandan Varela, FIDEL - 08/22/2023 3:09 PM EDT Images from the original note were not included. Follow Up Adult Inpatient Nutrition Assessment Reason for visit: 7 Day Follow-Up Nutrition Assessment: Nutritionally Significant Meds: cerovite, miralax, margaret Labs: Basic Metabolic Panel Na K Cl CO2 Gap Glu BUN Cr Ca Mg PO4 08/22/23436 1.8 08/22/23436 3.0 08/22/23436 137 4.2 104 27 10 [...] WBC RBC Hgb Hct MCV RDW Plt 08/22/23 0437 6.6 3.11 9.2 28.4 91 15.1 285 [...] 3.2 oz Estimated needs: of admit wt 6286-1380 kcal/d 20-25 kcal/kg [MSJ 1298] 73-90g pro/d [...] change in mental status with worsening expressive aphasiaand right-sided weakness. EEG started and NCC consulted. [...] of visit, observed pump running @ goal of45 cc/hr. Per RN, Pt tolerating feeds well. [...] 3. Weekly weights Will continue to follow Chandan Varela RD, LD Personal Pager [phone] District Ranger Pager: [phone] [id number] Progress note* Progress Notes - NoteWriter - Keely Valadez LSW - 08/22/2023 1:57 PM EDT SW SDU NOTE Per interdisciplinary rounds, Pt medically ready for SNF. Per MD, plan for Pt to return to SNF with Corepak in place and have ST follow-up Outpatient and at SNF. Plan for DC to [facility]. No pre-cert needed for DC. Per RN, intermittent roll-belt use ongoing since last night. Pt must be restraint free (including roll belt) for 24hrs prior to DC to any SNF. NICHO Rign, ILIANA Inpatient Glass Installer Technician P: [phone] [id number] Plan of care note* Treatment Plan Note - Binh Hart MD - 08/21/2023 8:59 AM EDT Notified by primary team that patient will be discharging to SNF today. Plan: -Trauma primary, dispo per primary -OK for Diet -Continue Keppra per NCCU reccs -Hold home ASA until NSGY f/u this week -OK for SCDs and SQH -Patient OK for discharge from NSGY perspective, will see patient in clinic this week. Binh Hart MD Neurosurgery, Resident Pager: [phone] 08/21/2023 - 9:01 AM Please page the on-call pager after 6pm and on weekends [id number] Plan of care note* Care Plan Note - John Vick RN - 08/20/2023 2:40 PM EDT Problem: Routine Care: Goal: Patient care will [...] alarm in place, call light in reach. [id number] Consult note* Digna Blank COTA - 08/20/2023 1:18 PM EDT OCCUPATIONAL THERAPY PROGRESS SUMMARY Patient seen from [...] Dep Max Mod Min CG CS DS NV I Set-Up Cues Comment Feeding x NPO [...] Guard Assist/Supervision 4 - Non = Modified Dixie/Independent ASSESSMENT: Recommend further therapy services in a [...] NA = Not Assessed, I = Independent, NV = Modified Independent, Sup = Supervised, Set up = Physical Assistance for Set-up Only, Min = Minimal Assistance, Mod = Moderate Assistance, Max = Max assistance; Dep = Dependent; AROM = Active Range of Motion;PROM=Passive Rangeof Motion; MMT = Manual Muscle Test; Shld= Shoulder; Add = Adduction; Abd = Abduction [id number] Consult note* Lillian Liao, PT - 08/20/2023 12:35 PM EDT PHYSICAL THERAPY PROGRESS SUMMARY Patient seen from 10:40am to 11:04am on GC5E unit for 24 minute treatment. Co- session with OT necessary for safe and professional assist with mobility assessment and training. SUBJECTIVE: Patient Subjective/Goals: Ruh. R-U-H. 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: Obese, IV, Kunz, and Sequential Compression Devices (SCDs) Behavior: Awake, Cooperative. A&Ox 3. Delayed processing, flat affect. Pain: Site/Location: denies pain Mobility NA Dep Max Mod Min CG CS DS NV I Comment Supine to sit x Min [...] With Patients permission ordered no equipment via [employer] Order. [facility] at [phone]. 08/20/2023 6 Clicks Basic Mobility PT Difficulty [...] levels. Recommend further therapy services in a Jail Setting once medically cleared. Will continue to [...] NA = Not Assessed, I = Independent, NV = Modified Independent, Sup = Supervised, Set up = Physical Assistance for Set-up Only, Min = Minimal Assistance, Mod = Moderate Assistance, Max = Maximal assistance; Dep = Dependent; AROM = Active Range of Motion; PROM = Passive Range of Motion; MMT = Manual Muscle Test [id number] Telephone encounter Note* Telephone Encounter - Deidre Peter - 08/20/2023 12:16 PM EDT MODIFIED TOM SCORE POST-DISCHARGE Telephone Visit Patient Name: Carly Marcelino Today's date: August 20, 2023 Date of discharge: May 07, 2023 Person giving information: N/A Contact information: [phone] Contact attempt: #3 Patient discharge location: Home Patient current location: Home Presentation to ED or readmission after discharge: No Modified [place] Score: 90 days post discharge: 7 = Unable to reach patient/caregiver. Mortality: No Signature: Deidre Peter August 20, 2023 12:16 PM [facility]06-10-2024 Miscellaneous Notes* Telephone Encounter - Deidre Peter - 08/20/2023 12:16 PM EDT MODIFIED TOM SCORE POST-DISCHARGE Telephone Visit Patient Name: Carly Marcelino Today's date: August 20, 2023 Date of discharge: May 07, 2023 Person giving information: N/A Contact information: [phone] Contact attempt: #3 Patient discharge location: Home Patient current location: Home Presentation to ED or readmission after discharge: No Modified Lancaster Score: 90 days post discharge: 7 = Unable to reach patient/caregiver. Mortality: No Signature: Deidre Peter August 20, 2023 12:16 PM documented [facility] Plan of care note* Care Plan Note - Darlene Dahl RN - 08/19/2023 7:57 AM EDT Problem: Routine Care: Goal: Patient care will [...] Free from injury during hospitalization Outcome: Progressing [id number] Consult note* Alexsander Lee OT - 08/18/2023 10:55 AM EDTAssociated Order(s): IP OCCUPATIONAL THERAPY SERVICE REQUEST Occupational Therapy Consult received. Patient currently on caseload. Will continue to follow per POC. Current recommendations are for SNF. RISA Matos/L [id number] Plan of care note* Care Plan Note - Darlene Dahl RN - 08/18/2023 8:21 AM EDT Problem: Routine Care: Goal: Patient care will [...] Free from injury during hospitalization Outcome: Progressing [id number] Plan of care note* Care Plan Note - Avani Noonan RN - 08/17/2023 4:15 PM EDT Problem: Routine Care: Goal: Patient care will [...] follows commands. Has not been able to verballyanswer questions. Will continue to monitor. 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 plan: TBD, hope for plan to DC with family Other hospital admissions within the past 60 days: Yes at [facility] on 07/29/23 Other pertinent problems: PATRICIA Valdez LISW [id number] Plan of care note* Care Plan Note - Ketan Vieyra RN - 08/16/2023 4:52 PM EDT Problem: Routine Care: Goal: Patient care will [...] Free from injury during hospitalization Outcome: Progressing [id number] Consult note* Vickie Pete, PT - 08/16/2023 3:37 PM EDTAssociated Order(s): IP PHYSICAL THERAPY SERVICE REQUEST PHYSICAL THERAPY PROGRESS SUMMARY Patient seen from 3:00 to 3:10 on 5W unit for 10 minute treatment. Nurse asked for patient to remain in bed due to leaving for MRI soon. Medical Updates: 08.14.23: Left-sided bur holes x2 for evacuation of iiourbse-hk-dalkzjj subdural hematoma. 2. Placement of left-sided subgaleal drain 08.15.23:Cerebral angiogram with LMMA embolization SUBJECTIVE: Patient Subjective/Goals: Carly re: What is your name. Patient not oriented to place or date. Patient not able to speak. Patient saying yes to all choices. 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 If any questions contact [facility] DME Provider at [phone]. 08/16/2023 6 Clicks Basic Mobility PT Difficulty [...] ASSESSMENT: Recommend further therapy services in a Jail Setting once medically cleared.Will continue to follow patient while in hospital [...] Plan of Care Vickie Pete, PT, DPT #[id number] NA = Not Assessed, I = Independent, NV = Modified Independent, Sup = Supervised, Set up = Physical Assistance for Set-up Only, Min = Minimal Assistance, Mod = Moderate Assistance, Max = Maximal assistance; Dep = Dependent; AROM = Active Range of Motion; PROM = Passive Range of Motion; MMT = Manual Muscle Test [facility] Work Phone: 1([phone]) [phone] Consult note* Aurea Parra, OT - 08/16/2023 1:58 PM EDT TICU OT Attempted OT visit Patient not medically appropriate per discussion with RN. Will re-attempt at next available opportunity. Aurea MOE, OTR/L Pager: [phone] Secure chat preferred [employer] Work Phone: 1(875) 532-931706-06-2024 Consult note* Delores Garcia, RD - 08/16/2023 12:06 PM EDTAssociated Order(s): NUTRITION NEW CONSULT Images from the [...] Light Yellow Appearance Turbid pH 6.0 Spec [place] 1.018 Protein 20 Blood Negative Bilirubin Negative [...] % DONAL BM UOP 08/14 20 2410 08/13 50 1185 08/12 X1 1565 08/11 750 Nutritionally Significant Meds: magnesium sulfate, 2,000 mg, Intravenous, One Time Dose levETIRAcetam orderable, 500 mg, Intravenous, Every 12 hours lisinopril, 2.5 mg, Oral, Daily losartan, 50 mg, Oral, Daily atorvastatin, 40 mg, Oral, At Bedtime senna, 8.6 mg, Oral, At Bedtime sodium chloride, , Last Rate: 75 mL/hr at 08/16/23 1049 Diet Order: NPO Nutrition Focused Physical Exam Muscle loss: [place] region: slight depression Clavicle region: visible bone with some protrusion Scapula region: mild depression Anterior thigh: well rounded Posterior calf: well developed Fat loss: Orbital region: slightly dark confederated salish/somewhat hollow look Tricep/bicep region: ample fat tissue [...] 3.2 oz Estimated needs: of admit wt 5906-7740 kcal/d 20-25 kcal/kg [MSJ 1298] 90g pro/d [...] some mild muscle loss in UEs - unc lear if acutely related to injury vs chronic [...] stopped - can consider 150 mL water qabqrvfj1ep - CAN FILLING MACHINE OPERATOR consult after failed bedside swallow, acute on chronic SDH, and post op Monitor ability to advance diet If cleared for thin liquids would benefit from boost plus with meal trays (or alternative ensure plus) - If supplemental TF desired when diet advanced to help stimulate po intake Impact peptide 1.5 @ 55 mL/hr x 12hrs Provides 660 mL, 990 demetria, 62g protein Deloresyudith Garcia RD, LD, [facility] Personal Pager: [phone] (Mon-Fri 7a-3:30p) Nutrition District Ranger Pager (evenings/weekends 7a-7p): [phone] Dietitian vs DietaryTech: Dietitian and Honing Machine Operator [employer]omatic [id number] Procedure note* Toshia Gil PA-C - 08/16/2023 7:41 AM EDTProcedure(s): REMOVAL, DRAIN After discussion with attending physician [...] monocryl suture. No drainage was appreciated from thesite. The patient tolerated the procedure well. Toshia Gil PA-C Neurosurgery [phone] [id number] Procedure note* Toshia Gil PA-C - 08/16/2023 7:41 AM EDTProcedure(s): REMOVAL, DRAIN After discussion with attending physician [...] monocryl suture. No drainage was appreciated from thesite. The patient tolerated the procedure well. Toshia Gil PA-C Neurosurgery [phone] documented in this [id number] Consult note* Emmanuel Yuan MD - 08/15/2023 6:09 PM EDTAssociated Order(s): IP NEUROCRITICAL CARE CONSULT Images from [...] Resource Strain: Low Risk (05/04/2023) Received from [facility] Overall Financial Resource Strain (CARDIA) Difficulty of Paying Living Expenses: Not hard at all Food Insecurity: No Food Insecurity (05/04/2023) Received from [facility] Hunger Vital Sign Worried About Running Out of Food in the Last Year: Never true Ran Out of Food in the Last Year: Never true Transportation Needs: No Transportation Needs (05/04/2023) Received from [facility] Transportation Lack of Transportation (Medical): No Lack [...] injection, 10 mg, Intravenous Push, Q6H PRN, oJlene Snowden MD, 10 mg at 08/15/23 1559 [...] - including independent interpretation of results when notreported separately) Referring/communicating with other health home health care physician - when not reported separately Charting in [facility] Benjamin Yuan MD [facility] service pager (for CCP consults): [phone] [id number] Surgery Postoperative evaluation and management note* Post-Procedure Note - Royce Casarez MD - 08/15/2023 4:13 PM EDT POST-PROCEDURE NOTE Procedure: Cerebral angiogram with LMMA embolization Pre-operative Diagnosis: Left AoC SDH Post-operative Diagnosis: Same Attending: Royce Casarez MD Dialysis Social Worker: Bekah Leon TIME OUT was performed prior [...] of the procedure. Royce Casarez MD Radiology [employer] Work Phone: 1([phone]) 561-668506-05-2024 Miscellaneous Notes* Post-Procedure Note - Royce Casarez MD - 08/15/2023 4:13 PM EDT POST-PROCEDURE NOTE Procedure: Cerebral angiogram with LMMA embolization Pre-operative Diagnosis: Left AoC SDH Post-operative Diagnosis: Same Attending: Royce Casarez MD Dialysis Social Worker: Koehl A TIME OUT was performed prior to the [...] Royce Casarez MD Radiology documented in this [id number] Consult note* Daina Bourgeois, PT - 08/15/2023 1:33 PM EDT Physical Therapy Clinical update: s/p OR on 08/14/23 for L sided Katty holes for SDH evacuation. DONAL drain placed [...] Wheeled walker - however pt unable to beef splitter with RUE Ambulation: 2' with Wheeled walker with unable to grasp with R UE for proper use with mod A x2, shuffling, significant R lean Patient education: Calling for assist for all mobility while in hospital , oriented to upcoming proceedure Pt sitting in chair at bedside after rx. with call light in reach. Pt instructed to call for asssistance with all mobility. [place] pressure alarm intact. RN aware 08/15/2023 6 [...] and decline in functional mobility this date. Ptpending MMA embolization. Will continue to follow. Recommend further therapy services in a Jail Setting once medically cleared. Will continue to [...] Continue PT per POC Daina Bourgeois PT [phone] [id number] Surgery Preoperative evaluation and management note* Pre- Procedure Note - Royce Casarez MD - 08/15/2023 1:27 PM EDT Pre-Procedure Note HISTORY: Procedure: LMMA embolization Indication: [...] Directives (Living will, health care power of collections attorney): none Patient Recent Code Status: Full Code Code Status For This Procedure: Full Code Royce Casarez MD Radiology [facility] Work Phone: 1([phone]) 418-755406-05-2024 History of Present illness Narrative* Nancy Felix - 08/15/2023 1:02 PM EDT Type of EEG Ordered: Prolonged 12-26 hour Patient: Carly Marcelino E#: [id number] Date of : 1940 Date started: 08/15/2023 Time started: 12:44PM Time ended: NA Technologist: Denis Ellis TChinmay, [facility] Referred by:Emily Barbosa MD Photic stimulation: deferred Hyperventilation: deferred Location: [facility] Main Handedness: unknown Hx of crani: Unknown [...] the technologist s ability. documented in this [id number] Consult note* Skyla Childers - 08/15/2023 12:08 PM EDT Dietitian vs DietaryTech: Dietary TechDiet Home Companion Nutrition Screening Reason for visit: LOS 5 [...] At this time, patient is at low nutritionrisk. DTR to provide routine follow up. Will continue to follow, BHARATI Zabala (Nutrition) Pager #[phone]. [id number] Consult note* Aurea Parra OT - 08/15/2023 11:38 AM EDT OCCUPATIONAL THERAPY PROGRESS SUMMARY Clinical update: 08/14/23 left sided katty holes for evacuation of SDH by Dr Li 08/15/23 plan for MMA embolization Patient seen from 839 to 902 on GC 5 West unit for 23 [...] Dep Max Mod Min CG CS DS NV I Set-Up Cues Comment Feeding Grooming/ Hygiene [...] Guard Assist/Supervision 4 - Non = Modified Dixie/Independent ASSESSMENT: Recommend further therapy services in a Skilled Rehab Setting once medically cleared. Will continueto follow patient while in hospital as appropriate. [...] with Plan as per Initial Evaluation. Aurea MOE OTR/L Pager: [phone] Secure chat preferred NA = Not Assessed, I = Independent, NV = Modified Independent, Sup = Supervised, Set up = Physical Assistance for Set-up Only, Min = Minimal Assistance, Mod = Moderate Assistance, Max = Max assistance; Dep = Dependent; AROM = Active Range of Motion;PROM=Passive Rangeof Motion; MMT = Manual Muscle Test; Shld= Shoulder; Add = Adduction; Abd = Abduction [id number] Plan of care note* Care Plan Note - Ketan Vieyra RN - 08/15/2023 10:30 AM EDT Problem: Routine Care: Goal: Patient care will [...] Free from injury during hospitalization Outcome: Progressing [id number] Surgery Surgical operation note* OP Note - Artem Li MD - 08/14/2023 7:37 PM EDT Neurosurgery Operative Note Name: CARLY MARCELINO MR#: [id number] [facility]#: [id number] Date of Procedure: 08/14/2023 ATTENDING SURGEON: Artem Li MD FIRST SURGEON: Misael Snowden MD. PREPROCEDURE DIAGNOSIS: Left bghut-pi-vancluf subdural hematoma with brain compression midline shift. POSTPROCEDURE DIAGNOSIS: Left apsvp-ct-ynnluul subdural hematoma with brain compression midline shift. ANESTHESIA: General endotracheal anesthesia. PROCEDURES: 1. Left-sided bur holes x2 for evacuation of qfwyehro-er-vfyptdb subdural hematoma. 2. Placement of left-sided subgaleal [...] confusion. Repeat CT head was obtained, which demonstrateda new chronic subdural hematoma with a small residual subacute acute component with brain compression and midline shift. Given the imaging findings and neurological exam change, she was recommended for surgical intervention. All risks, benefits and alternatives of surgery discussed with the patient's daughter, who agreed to proceed with the operation. Informed consent was documented separately inthe medical record. FINDINGS: Please see procedure note [...] preoperative time-out was completed. The patient identified, equ ipment confirmed, procedure confirmed, and intravenous antibiotics were administered prior to incision. We made an incision over the left side of the skull in the frontal and parietal incision sites using a #10 scalpel blade. Soft tissues dissected using Bovie and bipolar electrocautery. We placed self-retaining retractors. Then, using a high-speed drill with bicycle technician bit, we performed one left frontal and [...] quadrants until clear backwash was achieved. We wereable to visualize the cortical surface of the [...] Priest/Jo/Dict: 08/14/2023 14:10:59 TRANS: 08/14/2023 15:35:14 JOB: [id number] DictJob#: [id number] Consult note* Vickie Pete, PT - 08/14/2023 3:19 PM EDT Physical Therapy Note Attempted to see patient, however patient just returned from OR, not able to be seen per nurse. 6.4.24: s/p left sided katty holes for evacuation of subdural hematoma Will continue to follow. Vickie Pete, PT, DPT #[id number] Surgery Postoperative evaluation and management note* Brief Operative Note - Jolene Snowden MD - 08/14/2023 1:18 PM EDT Brief Operative Note MAIN OR 02 Carly Marcelino 83 year old female Surgical Contact Serial Number: [id number] Preoperative Diagnosis: Pre-op Diagnosis * SDH (subdural hematoma) (HCC) [S06.5XAA] Postoperative Diagnosis: * SDH (subdural hematoma) (HCC) [S06.5XAA] Procedures: left sided katty holes for evacuation of subdural hematoma No data filed Surgeon(s): Surgeon(s): Artem Li MD Staff: Scrub: Edson Pierre RN Chiropractic Care Nurse: Shital Gonsalves RN; Amilcar Kasper RN Public Health Social Worker: Binh Hart MD; Jolene Snowden MD Anesthesia: General Anesthesiologist: Leora Fleming MD Cafe Lead: Jeremiah Ochoa MD Anesthesia Staff: Lima Whittaker [...] by Jolene Snowden MD 08/14/2023 2:03 PM [id number] Progress note* Blood Attestation - Leora Fleming MD - 08/14/2023 12:09 PM EDT Blood Attestation: ATTESTATION OF INFORMED CONSENT FOR BLOOD: The transfusion of blood and/or blood components were discussed with the patient and/or legal sales representative aircraft. The risks, benefits and alternatives were reviewed. Questions regarding blood transfusions were answered. The patient /or the patient s legal sales representative aircraft agree with the plan for transfusion of blood and/or blood components. [employer] Work Phone: 1(120) 783-562806-04-2024 History and physical note* Binh Hart MD - 08/14/2023 11:32 AM EDT Surgical Attestation H&P: I have reviewed the patient's History and Physical Examination. I have personally seen and evaluated the patient, repeating kuo portions. There is no significant interval change. Surgery is still indicated. Yes Consent reviewed and signed by patient/family: Yes Operative site verified and marked: Yes Binh Hart MD Neurosurgery, Resident Pager: [phone] 08/14/2023 - 11:32 AM Please page the on-call pager after 6pm and on weekends [id number] History and physical note* Binh Hart MD - 08/14/2023 11:32 AM EDT Surgical Attestation H&P: I have reviewed the patient's History and Physical Examination. I have personally seen and evaluated the patient, repeating kuo portions. There is no significant interval change. Surgery is still indicated. Yes Consent reviewed and signed by patient/family: Yes Operative site verified and marked: Yes Binh Hart MD Neurosurgery, Resident Pager: [phone] 08/14/2023 - 11:32 AM Please page the on-call pager after 6pm and on weekends * Agnieszka Moctezuma DO - 08/12/2023 7:18 PM EDT Images from the original note were not included. [facility] Department of Surgery Division of Trauma Surgery, Acute Care Surgery, Critical Care, and Gregory TRAUMA SURGERY HISTORY AND PHYSICAL Carly Marcelino [id number] BASIC INJURY INFORMATION: Level of activation: Category [...] from OSH ED for subdural acute on chronicwith new midline shift, AMS. Patient had GLF 2 weeks ago, had subdural and was admitted; no midlineshift at that time, no AMS. Was doing [...] Resource Strain: Low Risk (05/04/2023) Received from [facility] Overall Financial Resource Strain (CARDIA) Difficulty of Paying Living Expenses: Not hard at all Food Insecurity: No Food Insecurity (05/04/2023) Received from [facility] Hunger Vital Sign Worried About Running Out of Food in the Last Year: Never true Ran Out of Food in the Last Year: Never true Transportation Needs: No Transportation Needs (05/04/2023) Received from [facility] PRAPARE - Transportation Lack of Transportation (Medical): No Lack of Transportation (Non-Medical): No Living status: Assisted living- rehab facility Primary language: Haitian Functional status: Independent Impairments: None Assistive Devices [...] the Brain Injury Guidelines: Results of an [place] [employer] Trauma prospective [...] and Emergency General Surgery Department of Surgery [facility] documented in this [id number] Plan of care note* Treatment Plan Note - Binh Hart MD - 08/14/2023 7:00 AM EDT Consent obtained for Left-sided Wheatcroft hole evacuations with Dr. Li as staff. Clarified code status with patient's daughter (Hebert Alvarez): patient is to remain full code both perioperatively and while in the unit at this time. Binh Hart MD Neurosurgery, Resident Pager: [phone] 08/14/2023 - 7:01 AM Please page the on-call pager after 6pm and on weekends [id number] Telephone encounter Note* Telephone Encounter - Annetta Randhawa - 08/13/2023 1:57 PM EDT Transitions of Care SNF/Acute Rehab Weekly Review Chart review completed CarePort reviewed. SNF in CarePort: Yes Call placed to SNF Glass Installer Technician: No Patient remains in SNF/Acute Rehab: No Patient discharged from SNF/Acute Rehab: Yes PT admitted to Inpatient at on on 08/12/23 Case returned to Deliverer Outside: No Patient remains in SNF greater than 30 days post hospital discharge: No Compass Moriah case closed: Yes Will no longer follow in CarePort Will close case [id number] Miscellaneous Notes* Telephone Encounter - Annetta Randhawa - 08/13/2023 1:57 PM EDT Transitions of Care SNF/Acute Rehab Weekly Review Chart review completed CarePort reviewed. SNF in CarePort: Yes Call placed to SNF Glass Installer Technician: No Patient remains in SNF/Acute Rehab: No Patient discharged from SNF/Acute Rehab: Yes PT admitted to Inpatient at on on 08/12/23 Case returned to Deliverer Outside: No Patient remains in SNF greater than 30 days post hospital discharge: No Compass [facility] case closed: Yes Will no longer follow in CarePort Will close case documented in this [id number] Plan of care note* Care Plan Note - Ketan Vieyra RN - 08/13/2023 10:57 AM EDT Problem: Routine Care: Goal: Patient care will [...] Free from injury during hospitalization Outcome: Progressing [id number] Consult note* Aurea Parra OT - 08/13/2023 10:55 AM EDTAssociated Order(s): IP OCCUPATIONAL THERAPY SERVICE REQUEST OCCUPATIONAL THERAPY INITIAL EVALUATION Patient seen from 1018 to 1038 on 5 [place] unit for 20 minutes. Co-evaluation with PT [...] Dep Max Mod Min CG CS DS NV I Set-Up Comment Feeding x Anticipated Patient is NPO Grooming/Hygiene x Wash face/hands Bathing:UB x Anticipated Bathing:LB x Anticipated Dressing:UB x Don gown Dressing: LB x Don socks Toileting x External catheter Incontinence care Transfers/Bed Mobility: Assistance Level Dep Max Mod Min CG CS DS NV I Set-Up Comment Toilet Transfers x2 Anticipated Bed Transfers x2 Sit to stand Stand to sit in chair Bed Mobility x2 Supine to sit EOB Ambulation x2 Few steps between bed and chair using walker Max V/T cues Assist to maneuver walker Assist for weight shifting Patient remained seated in bedside chair end of session with chair alarm and chair cushion in place. Call cuevas and telephone within reach. Patient [...] Guard Assist/Supervision 4 - Non = Modified [place]/Independent ASSESSMENT: Recommend further therapy services in a Skilled Rehab Setting once medically cleared. Will continueto follow patient while in hospital as appropriate. [...] the development of plan and goals. Aurea MOE OTR/L Pager: [phone] Secure chat preferred NA = Not Assessed, I = Independent, NV = Modified Independent, Sup = Supervised, Set up = Physical Assistance for Set-up Only, Min = Minimal Assistance, Mod = Moderate Assistance, Max = Max assistance; Dep = Dependent; AROM = Active Range of Motion;PROM=Passive Rangeof Motion; MMT = Manual Muscle Test; UB = Upper Body; LB = Lower Body [id number] Consult note* Vickie Pete, PT - 08/13/2023 10:54 AM EDTAssociated Order(s): IP PHYSICAL THERAPY SERVICE REQUEST PHYSICAL THERAPY ACUTE EVALUATION Referral received, chart reviewed. Patient seen from 10:18 to 10:36 on 5W unit for 18 minutes. Eval + treat Eval + treat. Co-eval withOT. Patient required the skills of two therapists [...] name and date of . and patient's idband and date of . Risks and Benefits of physical therapy: Patient informed of risks and benefits of treatment SUBJECTIVE: Patient Subjective: okay re: lets sit up Patient Identified Goal(s): to walk COASTAL AND ESTUARY SPECIALIST Status: amb with RW Unreliable historian, patient presenting with aphasia Home: ? steps to enter ? steps to bedroom/bathroom Assistance available: currently at SNF. Per chart, patient has a daughter Equipment available: ? 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, pipeline systems operator, Pulse Oximeter, Oxygen, IV, and Sequential Compression [...] With Patients permission ordered no equipment via [employer] Order. If any questions contact [facility] DME Provider at [phone]. 08/13/2023 6 Clicks Basic Mobility PT Difficulty [...] quality/tolerance, transfer skills and strengthening to enhance functionalmobility and safety. Recommend further therapy services in a Jail Setting once medically cleared. Will continue to [...] with the plan. Vickie Pete, PT, DPT #[id number] NA = Not Assessed, I = Independent, NV = Modified Independent, Sup = Supervised, Set up = Physical Assistance for Set-up Only, Min = Minimal Assistance, Mod = Moderate Assistance, Max = Max assistance; Dep = Dependent; AROM = Active Range of Motion; PROM = Passive Range of Motion; MMT = Manual Muscle Test; LE = Lower Extremity [id number] Plan of care note* Care Plan Note - Agnieszka Moctezuma DO - 08/13/2023 1:40 AM EDT Division of Trauma, Surgical Critical Care, EGS Ticket to Roll Note . Report called to Dr Richie Emmanuel who is the RUP The patient is transferring from ED, room # 1, to TICU, room # 210. The patient was added to the Trauma Surgery list. Agnieszka Moctezuma DO RUP = Receiving unit provider RNF = Regular nursing floor [id number] Consult note* Vignesh Galvin PA-C - 08/13/2023 12:20 AM EDT Images from the original note were not included. NEUROSURGERY CRANIAL TRAUMA H&P Patient Name: Carly Marcelino Primary Care Physician: No primary care provider on file. CONSULTED BY: Trauma CONSULTED FOR: Mixed density L hemispheric SDH CHIEF COMPLAINT: S/p AMS HPI: Pt is an 83 year old female with PMH of HTN, CAD (NSTEMI, stent in RCA, takes ASA 81), carotidstenosis brought in as transfer from OSH ED s/p AMS. Upon arrival to OSH a CTH was conducted which shows a mixed density left hemispheric subdural hematoma measuring up to 2.2 cm at greatest thickness with increased mass effect upon the underlying brain parenchyma and resultant 1.2 cm left to rightmidline shift for which NSGY was consulted. Of note, patient had GLF 2 weeks ago, was found to havea subdural and was admitted; no midline shift [...] minutes of consult and discussed with the staffDr. Dalton Galvin PA-C Neurosurgery Pager: [phone] Split/Shared Documentation I approve the management plan for this patient and take responsibility for the plan as documented. Independent Interpretation of Tests Performed by Another Physician/ASH: I personally performed, reviewed, and interpreted CTH with findings of L mixed density SDH with MLS. Vignesh Galvin PA-C [id number] Physician Emergency department Note* Seven Diehl MD - 08/12/2023 11:51 PM EDT ED RESIDENT CONTINUATION OF CARE NOTE Please [...] NSGY recs. Course: ED Course as of 08/12/231 Sun Aug 12, 20232048 Complete Blood Count [...] admitted to TICU with NSGY to perform Wheatcroft Hole. The clinical suspicion, plan of care, and management were discussed with the patient, and the patient agreed with the plans. Patient was admitted in stable condition per previous provider's recommendations. Seven Diehl MD [employer] Work Phone: 1(412) 321-731706-02-2024 Emergency department Note* Seven Diehl MD - 08/12/2023 11:51 PM EDT ED RESIDENT CONTINUATION OF CARE NOTE Please [...] Course: ED Course as of 08/12/23 2351 [place] Aug 12, 20232048 Complete Blood Count W/Diff(!): [...] 2049 LACTATE, SERUM: Lactate 1.0 Normal [LG] 8 CT HEAD W/O CONTRAST IMPRESSION: Mixed density [...] per previous provider's recommendations. Seven Diehl MD * John Medina - 08/12/2023 8:00 PM EDT Procedure note: Ultrasound Guided IV Placement Indication for procedure: staff attempted to gain peripheral IV access multiple times without success Informed consent, after discussion of the risks, benefits, and alternatives to the procedure, was obtained and the consent form was signed by patient . A timeout to verify the correct patient, procedure, and site was performed immediately prior to theprocedure. The patient was identified using two patient [...] may have been performed but is not includedin any documentation of this study. Group Billing Coordinator: John Medina * Debi Monroy RN - 08/12/2023 7:25 PM EDT Pt transferred from [facility]; 83 yo female fall two weeks ago; family noticed change inmentation 08/09/23 and brought her back to [facility]; scans there showed midline shift of the brain * Bernie Caldwell MD - 08/12/2023 7:19 PM EDT EMERGENCY DEPARTMENT - VISIT NOTE HISTORY OF PRESENT ILLNESS No chief complaint on file. Cardiac Catheterization Technician: not needed - patient preferred language is Haitian. 08/12/2023, 7:20 PM. Category: 2 The patient was brought to the ED by [employer]. The history is provided by [employer] personnel. Carly Marcelino is a 83 year old female brought to the ED s/p subdural hematoma. [employer] personnel report that the patient had a fall 2 weeks prior to which she was transported to [facility]. They notethat she was found to have a left acute subdural hematoma at that time that was stable. They reportthat she was discharged and transferred to [facility]. They endorse that the patient's family noticed a decline in the patient's mental status 3 days prior and that the patient began to complain of a WISDOM. They note that the patient was transported to [facility] today where imaging showed an expansion of her left subdural hematoma with midline shift. They endorse that the patient hasa GCS of 14 however is 15 at baseline. They report that the patient received 250 mL of hypertonic solution. They note that the patient's last blood pressure was 150 - 160 systolic, her last heart rate was 70, and her last ETCO2 was 35 en route. Last lovenox dose this AM at rehab. Takes 30 mg BID REVIEW OF SYSTEMS As above PAST HISTORY Pertinent Past History: No pertinent past medical history Pertinent Family History: No pertinent past family history Pertinent Social History: No pertinent past social history PHYSICAL EXAM BP 149/73 Pulse 83 Temp [...] no dental malocclusions, no nasal septal hematoma, nooropharyngeal trauma, no hemotympanum bilaterally. Eyes: PERRLA, EOMI, [...] Skin: Warm, dry, as above Psych: Cooperative ED COURSE IN [place] 7:08 PM - The patient was brought to the [facility] [place]. 7:12 PM - BP 148/79, HR 81, [...] LETICIA to RCA, prior DVT, cerebral amyloid angiopathy,non-traumatic SAH, epilepsy, asthma presented as a transfer from [facility] following mechanical fall on 07/28. OSH imaging with ICH with MLS. (+) ASA. Trauma workup found L SDH with 4mm MLS, nasal septal deviation. Admitted to TICU for frequent neurochecks. Pt initially altered and agitated, thisimproved and was dc to SNF Discussion with [...] up to 2.2 cm at greatest thickness withincreased mass effect upon the underlying brain parenchyma and resultant 1.2 cm left to right midline shift and right lateral ventricular entrapment. Low suspicion for other intrathoracic or intraabdominal trauma. Pending trauma and nsgy recs, will need admit, likely TICU, signed out to Dr. Diehl. IMPRESSION AND DISPOSITION Clinical Impression Diagnosis Comment Altered mental status, unspecified altered mental status type [R41.82] SDH (subdural hematoma) ([facility]) [S06.5XAA] Dispo: Pending Bernie Caldwell MD SCRIBE ATTESTATION 08/13/2023, 12:20 AM. This note is prepared by Janny Robles acting as Scribe for Bernie Caldwell MD All medical record entries made by the Scribe were at my direction and personally dictated by me. Buster reviewed the record and confirm that the [...] portions of the historyand physical exam. I reviewed/revised the resident's documentation and discussed the patient with the resident. I agree with the resident's medical decision making as documented in the resident's note. Ross Castorena MD documented in this [id number] History of Present illness Narrative* Palmer Sanchez LSW - 08/12/2023 8:03 PM EDT CAT 2 83F presented to ED via [employer] [employer] as transfer from [facility] s/p fall 2 weeks ago presented with new brain bleed w/ shift Pt admitted to [facility] SNF upon dc from 08/03. Family had her brought to [facility] from [facility] due to decline in mental status. SW called pt's dtr Hebert Alvarez [phone] she stated that she will come to the hospital to see the pt tomorrow PLAN: Pending ILIANA Ortiz documented in this [id number] Emergency department Note* MedinaJohn - 08/12/2023 8:00 PM EDT Procedure note: Ultrasound Guided IV Placement Indication for procedure: staff attempted to gain peripheral IV access multiple times without success Informed consent, after discussion of the risks, benefits, and alternatives to the procedure, was obtained and the consent form was signed by patient . A timeout to verify the correct patient, procedure, and site was performed immediately prior to theprocedure. The patient was identified using two patient [...] may have been performed but is not includedin any documentation of this study. Group Billing Coordinator: John Medina [id number] Emergency department Note* Debi Monroy RN - 08/12/2023 7:25 PM EDT Pt transferred from [facility]; 83 yo female fall two weeks ago; family noticed change inmentation 08/09/23 and brought her back to [facility]; scans there showed midline shift of the brain [id number] Physician Emergency department Note* Bernie Caldwell MD - 08/12/2023 7:19 PM EDT EMERGENCY DEPARTMENT - VISIT NOTE HISTORY OF PRESENT ILLNESS No chief complaint on file. Cardiac Catheterization Technician: not needed - patient preferred language is Haitian. 08/12/2023, 7:20 PM. Category: 2 The patient was brought to the ED by [employer]. The history is provided by [employer] personnel. Carly Marcelino is a 83 year old female brought to the ED s/p subdural hematoma. [employer] personnel report that the patient had a fall 2 weeks prior to which she was transported to [facility]. They notethat she was found to have a left acute subdural hematoma at that time that was stable. They [facility] They endorse that the patient's family noticed a decline in the patient's mental status 3 days prior and that the patient began to complain of a WISDOM. They note that the patient was transported to [facility] ED today where imaging showed an expansion of her left subdural hematoma with midline shift. They endorse that the patient hasa GCS of 14 however is 15 at baseline. They report that the patient received 250 mL of hypertonic solution. They note that the patient's last blood pressure was 150 - 160 systolic, her last heart rate was 70, and her last ETCO2 was 35 en route. Last lovenox dose this AM at rehab. Takes 30 mg BID REVIEW OF SYSTEMS As above PAST HISTORY Pertinent Past History: No pertinent past medical history Pertinent Family History: No pertinent past family history Pertinent Social History: No pertinent past social history PHYSICAL EXAM BP 149/73 Pulse 83 Temp [...] no dental malocclusions, no nasal septal hematoma, nooropharyngeal trauma, no hemotympanum bilaterally. Eyes: PERRLA, EOMI, [...] Skin: Warm, dry, as above Psych: Cooperative ED COURSE IN [place] 7:08 PM - The patient was brought to the [facility] [place]. 7:12 PM - BP 148/79, HR 81, [...] LETICIA to RCA, prior DVT, cerebral amyloid angiopathy,non-traumatic SAH, epilepsy, asthma presented as a transfer from [facility] following mechanical fall on 07/28. OSH imaging with ICH with MLS. (+) ASA. Trauma workup found L SDH with 4mm MLS, nasal septal deviation. Admitted to TICU for frequent neurochecks. Pt initially altered and agitated, thisimproved and was dc to SNF Discussion with [...] up to 2.2 cm at greatest thickness withincreased mass effect upon the underlying brain parenchyma [...] (HCC) [S06.5XAA] Dispo: Pending Bernie Caldwell MD SCRIBE ATTESTATION 08/13/2023, 12:20 AM. This note is prepared by Janny Robles acting as Scribe for Bernie Caldwell MD All medical record entries made by the Scribe were at my direction and personally dictated by me. Ihave reviewed the record and confirm that the [...] portions of the historyand physical exam. I reviewed/revised the resident's documentation and discussed the patient with the resident. I agree with the resident's medical decision making as documented in the resident's note. Ross Castorena MD [facility] Work Phone: 1(739) 200-524806-02-2024 History and physical note* Agnieszka Moctezuma DO - 08/12/2023 7:18 PM EDT Images from the original note were not included. [facility] Department of Surgery Division of Trauma Surgery, Acute Care Surgery, Critical Care, and Gregory TRAUMA SURGERY HISTORY AND PHYSICAL Carly Marcelino [phone] BASIC INJURY INFORMATION: Level of activation: Category [...] [facility] ED for subdural acute on chronicwith new midline shift, AMS. Patient had GLF 2 weeks ago, had subdural and was admitted; no midlineshift at that time, no AMS. Was doing [...] Resource Strain: Low Risk (05/04/2023) Received from [facility] Overall Financial Resource Strain (CARDIA) Difficulty of Paying Living Expenses: Not hard at all Food Insecurity: No Food Insecurity (05/04/2023) Received from [facility] Hunger Vital Sign Worried About Running Out of Food in the Last Year: Never true Ran Out of Food in the Last Year: Never true Transportation Needs: No Transportation Needs (05/04/2023) Received from [facility] PRAPARE - Transportation Lack of Transportation (Medical): No Lack of Transportation (Non-Medical): No Living status: Assisted living- rehab facility Primary language: Haitian Functional status: Independent Impairments: None Assistive Devices [...] J Trauma Acute Care Surg. Vol (84)3, 996-489. Micky Mckeon et al. (2021). Validating the Brain Injury Guidelines: Results of an [place] [employer] the [employer] of Trauma prospective multi-institutional trial. J Trauma Acute Care Surg. 2021 Aug;93(2):157-165. BIG Score: BIG 1 - with SDH [...] as documented in the resident's note Gavino Cotetr MD Division of Trauma, Critical Care, Gregory, and Emergency General Surgery Department of Surgery [facility]05-30-2024 Telephone encounter Note* Telephone Encounter - Annetta Randhawa - 08/09/2023 9:52 AM EDT Transitions of Care SNF/Acute Rehab Weekly Review Chart review completed CarePort reviewed. SNF in CarePort: Yes Call placed to SNF Glass Installer Technician: No Patient remains in SNF/Acute Rehab: Yes Patient discharged from SNF/Acute Rehab: No Case returned to Deliverer Outside: No Patient remains in SNF greater than 30 days post hospital discharge: No Ronaldo Major case closed: No, Patient discharged to SNF/Acute Rehab on: 08/04/2023 Name of [facility]/Acute Rehab: [facility] Phone number: [phone] [id number] Miscellaneous Notes* Telephone Encounter - Annetta Randhawa - 08/09/2023 9:52 AM EDT Transitions of Care SNF[facility]Acute Rehab Weekly Review Chart review completed [facility] Glass Installer Technician: No Patient remains in SNF/Acute Rehab: Yes Patient discharged from SNF/Acute Rehab: No Case returned to Deliverer Outside: No Patient remains in SNF greater than 30 days post hospital discharge: No Ronaldo Major case closed: No, Patient discharged to SNF/Acute Rehab on: 08/04/2023 Name of [facility]/Acute Rehab: [facility] Phone number: [phone] documented in this [id number] Telephone encounter Note* Telephone Encounter - Corry Park RN - 08/09/2023 9:00 AM EDT Transition Of Care - SNF/Acute Rehab Discharge Note Patient discharged to SNF/Acute Rehab on: 08/04/2023 Name of [facility]/Acute Rehab: [facility] Phone number: [phone] Ronaldo Major Wrap Up Task created in Director Clinical Pharmacology's name for follow up YUSUF Baxter, RN Deliverer Outside, [facility] [phone], option 4 [id number] Miscellaneous Notes* Telephone Encounter - Corry Park RN - 08/09/2023 9:00 AM EDT Transition Of Care - SNF/Acute Rehab Discharge Note Patient discharged to SNF/Acute Rehab on: 08/04/2023 Name of SNF/Acute Rehab: [facility] Phone number: [phone] Compass [place] Wrap Up Task created in Director Clinical Pharmacology's name for follow up YUSUF Baxter, RN Deliverer Outside, [facility] [phone], option 4 documented in this [id number] Plan of care note* Care Plan Note - John Vick RN - 08/04/2023 10:42 AM EDT Problem: Routine Care: Goal: Patient care will be managed and maintained throughout hospital stay per unit specific routine care procedure Outcome: Adequate for Discharge Patient discharged to rehab at 1027. Patient IV removed. Patient A&Ox3 and excited to leave. Report given to DM&dolores. Report called to rehab. [id number] Miscellaneous Notes* Care Plan Note - John Vick RN - 08/04/2023 10:42 AM EDT Problem: Routine Care: Goal: Patient care will be managed and maintained throughout hospital stay per unit specific routine care procedure Outcome: Adequate for Discharge Patient discharged to rehab at 1027. Patient IV removed. Patient A&Ox3 and excited to leave. Report given to DM&sons. Report called to rehab. * Discharge Planning Note - Palmer Sanchez LSW - 08/03/2023 4:15 PM EDT CASE MANAGEMENT/SOCIAL WORK SNF DC NOTE: Pt has been cleared for transfer to SNF on tomorrow 08/04/23 Pt will be transferred to [facility] via Jerel Gutiérrez and Dolores ([id number]) at 10am Nursing report may be called to [phone] station 1. please fax dc med list to [phone] Support person notified: HEBERT ALVAREZ (Daughter) [phone] Patient/Family, team aware of above and agreeable. For discharge, please ensure the following is completed: MD to place DC order, reconcile meds, and print narcotics to go with patient to SNF [employer] to print Discharge Summary, Orr, Summary of Care, Narcotic Scripts, and Signature Page and place in a packet to be given to car pick up driver If transport/discharge needs to be adjusted/cancelled, team (/RN) to cancel transport, update support person, and update receiving facility. * Orr - Palmer Sanchez LSW - 08/03/2023 2:58 PM EDT Social Work/Case Management: Reason for placement: PT/OT Therapies Patient level of care required : Skilled Applicant's potential for returning to community: Convalescent stay:<30 days Prognosis: Fair Rehab Potential: Improve Mental/Behavioral status:Oriented Affect: Calm Social Work Assessment Functional status prior to admission: amb with Community agencies active with patient: none Support system: Family support Capacity for independent living/mcfp plan:Return to independent living Other hospital admissions within the past 60 days: No Other pertinent problems: none * Care Plan Note - Ester Jiménez RN - 08/03/2023 2:10 PM EDT Problem: Routine Care: Goal: Patient care will be managed and maintained throughout hospital stay per unit specific routine care procedure 08/03/2023 1409 by Ester Jiménez, RN Outcome: Progressing Note: Hourly rounding performed, [...] improve and/or be maintained 08/03/2023 1409 by Etser Jiménez RN Outcome: Progressing 08/03/2023712 by Ester Jiménez RN Outcome: Progressing Problem: Altered Elimination: Goal: Establishment of individualized bowel routine will be obtained 08/03/2023 140 by Ester Jiménez RN Outcome: Progressing 08/03/2023712 by Ester Jiménez RN Outcome: Progressing Goal: Establishment of normal urinary function will be acheived and maintained 08/03/2023 140 by Ester Jiménez [...] Range of joint motion will improve 08/03/2023 1409 by Ester Jiménez [...] signs and symptoms of excessive bleeding 08/03/2023 140 by Ester Jiménez RN Outcome: Progressing 08/03/2023712 by Ester Jiménez RN Outcome: Progressing Problem: Altered Neurological Status: Goal: Optimal neurological status will be maintained or regained 08/03/2023 140 by Ester Jiménez RN Outcome: Progressing 08/03/2023712 by Ester Jiménez RN Outcome: Progressing Goal: Altered Level of Consciousness will improve 08/03/2023 140 by Ester Jiménez RN Outcome: Progressing 08/03/2023712 by Ester Jiménez RN Outcome: Progressing Problem: Alteration in Tissue Perfusion: Cerebral: Goal: Promote adequate perfusion and limit complications for a person experiencing or at risk for inadequate cerebral perfusion 08/03/2023 140 by Ester Jiménez RN Outcome: Progressing 08/03/2023712 by Ester Jiménez RN Outcome: Progressing Problem: Alteration in Respiratory Status: Goal: Achieve Optimal Respiratory Status with Minimal Ventilatory/Oxygen Support 08/03/2023 140 by Ester Jiménez RN Outcome: Progressing 08/03/2023712 by Ester Jiménez RN Outcome: Progressing Problem: Acute Pain: Goal: Ability to identify pain intensity on a pain scale and rate it consistently will be achieved and maintained 08/03/20231408 by Ester Jiménez RN Outcome: Progressing Note: Patient pain assessed on a scale from 0-10, pain interventions performed as needed 08/03/2023 07 by Ester Jiménez RN Outcome: Progressing Goal: Understanding of proper administration and use of medicines will be achieved 08/03/2023 1409 by Ester Jiménez RN Outcome: [...] patient in the last 24 hours 08/03/2023 07 by Ester Jiménez RN Outcome: Progressing * Care Plan Note - Trish Oconnor RN - 08/02/2023 12:30 PM EDT Problem: Routine Care: Goal: Patient care will [...] call light within reach. Sitter at bedside. * Care Plan Note - Avani Noonan RN - 08/01/2023 10:10 AM EDT Problem: Routine Care: Goal: Patient care will [...] time, order discontinued. Will continue to monitor. * Care Plan Note - Manju King RN - 08/01/2023 12:46 AM EDT Problem: Routine Care: Goal: Patient care will [...] Free from injury during hospitalization Outcome: Progressing * Care Plan Note - Daina Hayes RN - 07/31/2023 9:29 AM EDT Problem: Routine Care: Goal: Patient care will [...] Free from injury during hospitalization Outcome: Progressing * Aurea Espinal LISW - 07/30/2023 3:24 PM EDT Social Work/Case Management: Reason for placement: PT/OT [...] system: [facility] [place], . Capacity for independent living/mcfp plan: live with daughter Other hospital admissions within the past 60 days: No Other pertinent problems: PATRICIA Valdez LISW * Progress Notes - NoteWriter - Daina Lyons RN - 07/30/2023 5:00 AM EDT 0500 - At 0400 neuro check, pt [...] IV and we were not trying to hurther. Pt also has not voided since around 2200 with straight cath. This RN explained that I was going to check her bladder. While bladder scanning the pt, pt asked who this RN was and why I was checking her bladder multiple times. This RN explained that I am her nurse because she in the hospital andthat since she had not peed in 6 hours, I needed to make sure that her bladder was not full. Dr. Gilman notified, stated that she would notified neurosurgery. 05 Viviana Marrero PA-C down to assess pt. Viviana stated that pt did not need repeat CT head. * Treatment Plan Note - Viviana Marrero PA-C - 07/29/2023 11:44 PM EDT NSGY Treatment Plan Note Repeat head CT stable. Okay for q2h neurochecks. Viviana Marrero PA-C Neurosurgery Service Pager [phone] * Care Plan Note - Akin Hendricks RN - 07/29/2023 5:27 PM EDT Problem: Routine Care: Goal: Patient care will [...] or regained Note: Complete neurologic assessment Q1 * Treatment Plan Note - Ayanna Ignacio PA-C - 07/29/2023 4:41 PM EDT [facility], Dr. Li. [...] concerns. Ayanna Ignacio PA-C Neurosurgery Pager - [phone] * Treatment Plan Note - Vickie Hummel PA-C - 07/29/2023 3:04 PM EDT Division of Trauma, Surgical Critical Care, EGS Ticket to Roll Note . Dr. Sanchez, who is the RUP. The patient is transferring from ED, room # 33, to TICU, room # 207-1. The patient was added to theTrauma Surgery list. Vickie Hummel PA-C RUP = Receiving unit provider RNF = Regular nursing floor documented in this [id number] Consult note* Tosiha Sue CCC-SLP - 08/03/2023 4:50 PM EDT Speech Language Pathology Documentation Attempted follow up tx session to address cognition and diet tolerance. Patient currently engaged in phone conversation. Will follow per POC as patient schedule permits. KONRAD Oakley/CAN FILLING MACHINE OPERATOR Speech and Language Pathologist Pager [phone] Consult note* Toshia Sue CCC-SLP - 08/03/2023 4:50 PM EDT Speech Language Pathology Documentation Attempted follow up tx session to address cognition and diet tolerance. Patient currently engaged in phone conversation. Will follow per POC as patient schedule permits. KONRAD Oakley/CAN FILLING MACHINE OPERATOR Speech and Language Pathologist Pager [phone] * Valerie Us OT - 08/03/2023 11:50 AM EDT OCCUPATIONAL THERAPY PROGRESS SUMMARY Patient seen from [...] Dep Max Mod Min CG CS DS NV I Set-Up Cues Comment Feeding x x Anticipated to cut food Grooming/ Hygiene x x Assist to open packages and containers, pt completed oral hygiene in a seatedposition Bathing: Upper Body x Simulated sponge bathing [...] With Patients permission ordered no equipment via [employer] Order. If any questions contact [facility] DME Provider at [phone]. 08/03/2023 6 Clicks Daily Activity OT Help [...] Guard Assist/Supervision 4 - Non = Modified Dixie/Independent ASSESSMENT: ASSESSMENT: Recommend further therapy services in a Skilled Rehab Setting once medically cleared. Will continueto follow patient while in hospital as appropriate. [...] NA = Not Assessed, I = Independent, NV = Modified Independent, Sup = Supervised, Set up = Physical Assistance for Set-up Only, Min = Minimal Assistance, Mod = Moderate Assistance, Max = Max assistance; Dep = Dependent; AROM = Active Range of Motion;PROM=Passive Rangeof Motion; MMT = Manual Muscle Test; Shld= Shoulder; Add = Adduction; Abd = Abduction * Shital Hinds, PT - 08/01/2023 11:47 AM EDT PHYSICAL THERAPY PROGRESS SUMMARY Patient seen from [id number] on 5W unit for 17 minute treatment. [...] Dep Max Mod Min CG CS DS NV I Comment Roll to (R) sidelying x [...] ASSESSMENT: Recommend further therapy services in a Jail Setting once medically cleared. Will continue to [...] NA = Not Assessed, I = Independent, NV = Modified Independent, Sup = Supervised, Set up = Physical Assistance for Set-up Only, Min = Minimal Assistance, Mod = Moderate Assistance, Max = Maximal assistance; Dep = Dependent; AROM = Active Range of Motion; PROM = Passive Range of Motion; MMT = Manual Muscle Test * Skyla Childers - 08/01/2023 10:06 AM EDT Dietitian vs DietaryTech: Dietary TechDiet Home Companion Nutrition Screening Reason for visit: LOS 5 [...] At this time, patient is at low nutritionrisk. DTR to provide routine follow up. Will continue to follow, BHARATI Zabala (Nutrition) Pager #[phone]. * Valerie Us, OT - 07/30/2023 1:43 PM EDTAssociated Order(s): IP OCCUPATIONAL THERAPY SERVICE REQUEST OCCUPATIONAL THERAPY INITIAL EVALUATION Patient seen from 0930 to 0950 on GC5W unit for 20 minutes. Reason for Admit: 83 yo transfer from [facility] s/p fall leaving zoroastrianism. Diagnosis: Left frontal/parietal/temporal SDH and 4 mm [...] Subjective: Are you sure I am at [email or web address]? Patient Identified Goal(s):none stated Home Living Situation- [...] Dep Max Mod Min CG CS DS NV I Set-Up Comment Feeding x x Grooming/Hygiene x x Bathing:UB x Simulated sponge bathing Bathing:LB x Simulated sponge bathing Dressing:UB x Anticipated to don shirt Dressing: LB x Anticipated to don pants Toileting x Anticipated Transfers/Bed Mobility: Assistance Level Dep Max Mod Min CG CS DS NV I Set-Up Comment Toilet Transfers x2 anticipated [...] With Patients permission ordered no equipment via [employer] Order. If any questions contact [facility] DME Provider at [phone]. 07/30/2023 6 Clicks Daily Activity OT Help [...] Guard Assist/Supervision 4 - Non = Modified Dixie/Independent ASSESSMENT: Recommend further therapy services in a Skilled Rehab Setting once medically cleared. Will continueto follow patient while in hospital as appropriate. [...] equipment / compensatory strategy training, patient / f amily education and discharge planning, referral to appropriate support services, and pain Management able to discuss the evaluation findings and treatment plan with the patient/family. The patient/family did participate in the development of plan and goals. Valerie Us OT NA = Not Assessed, I = Independent, NV = Modified Independent, Sup = Supervised, Set up = Physical Assistance for Set-up Only, Min = Minimal Assistance, Mod = Moderate Assistance, Max = Max assistance; Dep = Dependent; AROM = Active Range of Motion;PROM=Passive Rangeof Motion; MMT = Manual Muscle Test; UB = Upper Body; LB = Lower Body * Toshia Sue, CCC-CAN FILLING MACHINE OPERATOR - 07/30/2023 1:25 PM EDT SPEECH-LANGUAGE PATHOLOGY ACUTE EVAL AC5-207/1 Referral received, [...] GERD, Pulmonary Htn, seizure disorder, cerebral amyloid angiopathy,prior SAH and recent DVT presenting to ED [...] left frontal lobe. 4. 3 mm of [id number]-[id number] midline shift. Prior Level of Functioning: Will [...] . Patient apprehensive to accept PO from CAN FILLING MACHINE OPERATOR. Patient also demo paranoid behaviors re: other staff presence and monitors. - CAN FILLING MACHINE OPERATOR able to increase patient comfort slowly over time of session through verbal discussion. Patient was not receptive to CAN FILLING MACHINE OPERATOR review of prior session held earlier this date, factual information and/or verbal reasoning presented. - Expressive language was intact throughout spontaneous output this session - Patient followed basic instruction and direct commands throughout this session - Patient able to to ID that she has dentures, specifics regarding and presence. CAN FILLING MACHINE OPERATOR cleansed and provided to patient. Patient participated in choice making throughout session including whether to I'ly complete don of dentures and self feeding vs accepting assistance. - Patient with poor orientation to place and situation; CAN FILLING MACHINE OPERATOR provided review with specific details. Patient then reporting hospital to be despite ongoing review of current place/facility. Later reports typically receives care at [facility]. CLINICAL BEDSIDE SWALLOW EVALUATION Current Diet [...] uvula; Diminished velar elevation b/l Patient and CAN FILLING MACHINE OPERATOR administered all consistencies presented during this assessment. [place] Swallow Protocol: Patient decline participation Clinical Assessment [...] observations only given patient declined participation in [place] Swallow Protocol. Patient consumed varying solid consistencies andthin liquids without overt s/s of airway invasion this session. Provided regular texture solids, patient exhibited slow incomplete mastication cycle with pocketing of partially masticated bolus in R buccal cavity. Patient was inattention to task of eating with talking and other activities completedprior to finishing bolus breakdown and clearance of [...] will complete basic-moderate level organization tasks (sequencing, convergent/divergentreasoning tasks) with 80% accuracy to improve mental [...] phrase/sentence completion, picture description, spontaneous production) with 90%<accuracy in order to improve effectiveness and efficiency [...] for colonization of oropharyngeal bacteria - Anticipate CAN FILLING MACHINE OPERATOR services needed in discharge setting; consider PMR consult - If patient were to return home at this time, would benefit from Constant Supervision- Person may not be left alone. Requires a caregiver to watch 24 hours a day. Patient would benefit from assistance with ADLs and IADLs Toshia Sue CCC-CAN FILLING MACHINE OPERATOR, MS-CCC/CAN FILLING MACHINE OPERATOR Speech and Language Pathologist Secure chat preferred ([phone] M,T,, F) Pager [phone] * Toshia Sue CCC-CAN FILLING MACHINE OPERATOR - 07/30/2023 10:29 AM EDTAssociated Order(s): IP CAN FILLING MACHINE OPERATOR SERVICE REQUEST SPEECH-LANGUAGE PATHOLOGY ACUTE EVAL AC5-207/1 Time In: 951 Time Out: 1029 Session [...] GERD, Pulmonary Htn, seizure disorder, cerebral amyloid angiopathy,prior SAH and recent DVT presenting to ED [...] left frontal lobe. 4. 3 mm of [id number] midline shift. Prior Level of Functioning: Will [...] level intensities. Patient reports adequate hearing of CAN FILLING MACHINE OPERATOR. Vision: Patient reports she has poor vision although demo ability to participate in basic visual tasks this date which are present in large, bold print. Language: Auditory Comprehension: -1 step commands: 5/5 -2 step commands: 0/5 -[place]/biographical y/n questions: 4/5 -Abstract y/n questions: 3/7 [...] words, and phrases. Breakdown occurs at simple sentencelevel. Verbal Expression: Language production is variable in direct tasks and may be impacted by deficits in attention and organization. Spontaneous productions are perseverative in nature, but free of paraphasias and/or anomia. -Biographical information: WFL -Automatics: Intact for digits 1-20 -Confrontation naming: Objects: /3; Line drawings: 07/17; +2 with phonemic cue (patient I'ly demo circumlocution x1 Oh, my mother used toplay that. It was wonderful. ---Violin) -Repetition: Intact -[place] phrase completion: Intact -Open ended phrase completion: Intact -Responsive naming: Intact -Response to open ended questions: Intact; perseverative, but with clarifications or repetitions ofquestion, appropriate responses achieved. -Picture description: Able to [...] dangerous situations (e.g. Cookie Theft picture), but doesnot demo full awareness and implementation of safety [...] time, situation), attention, organization, executive function, and insight.Language is characterized by perseverative expression of thoughts/ideas/topics with intermittent language errors during confrontation naming and picture description tasks. Patient is stimulable for use of cuing strategies. Written language is impaired at the basic level (name and single word) with question of visuospatial component. Patient intermittently aware of general errors with intermittentattempts to self correct which are perseverative and ineffective. Perseveration continues throughout all motor tasks. Receptive language is intact at basic level with breakdowns at moderate level information and 2-step simple command level. Reading comprehension is impaired at the simple sentence +level. The deficits identified during this assessment negatively impact the patient's ability to safely and efficiently complete ADL and IADL tasks within the current, home and community environmentswithout direct assistance. Bedside swallow evaluation was held [...] will complete basic-moderate level organization tasks (sequencing, convergent/divergentreasoning tasks) with 80% accuracy to improve mental [...] phrase/sentence completion, picture description, spontaneous production) with 90%<accuracy in order to improve effectiveness and efficiency with verbal communication. Prognosis: (+) Cooperation (-) PMH (+) New onset of acute issues (-) Age (-) Cognitive impairments Recommendations: - CAN FILLING MACHINE OPERATOR to complete bedside swallow evaluation pending approval for PO intake - HOB elevated to 30< degree angle at all times - Rigorous oral care Q3-4 with suction toothbrush kit in order to promote moistening of mucosa and reduce risk for colonization of oropharyngeal bacteria - Anticipate CAN FILLING MACHINE OPERATOR services needed in discharge setting; consider PMR consult - If patient were to return home at this time, would benefit from Constant Supervision- Person may not be left alone. Requires a caregiver to watch 24 hours a day. Patient would benefit from assistance with ADLs and IADLs Toshia Sue CCC-CAN FILLING MACHINE OPERATOR, MS-CCC/CAN FILLING MACHINE OPERATOR Speech and Language Pathologist Secure chat preferred ([phone] M,T,TH, F) Pager [phone] * Jer Serra MD - 07/30/2023 9:52 AM EDTAssociated Order(s): IP GERIATRIC CONSULT Images from the original note were not included. GERIATRIC CONSULTATION Patient Name: Carly Marcelino Location: [place] [address] PCP: No primary care provider on file. [...] Cognition impairment Called Daughter Hebert ALVAREZ,HEBERT Daughter [phone] Before this admission Patient was living with her DTR and MILE and just moved to her own home like aweek ago to try to live independently, by [...] dysphagia Currently NPO, Bedside eval pending. - CAN FILLING MACHINE OPERATOR for swallow evaluation Advanced care planning, goals of care - NO living will and hcpoa Full code Discharge planning - tentative discharge plan is possible Jail facility for few weeks and later Home with Daughter with [facility] services As per today's assessment pt will need 24X7 supervision. She will require Assistance with Adls and IADLs after discharge. Thank you for the consultation and allowing the Geriatric Medicine service to work with you for thebenefit of your older patient. Jer Serra MD Department of Geriatric Medicine Number of children: 2 kids, Son this year. Primary Caregiver: DTR Supportive family or social network: Yes Receiving community services: Yes Advance Care Planning: Code Status: Full Code Living Will: No Health Care Power of Manufacturing Project Engineer: No Review of Systems: Review of Systems [...] and memory loss. The patient is nervous/anxious andhas insomnia. Patient's Medications, Past Medical, Surgical, Social, and Family History have been reviewed. Please see relevant sections in [facility] EMR for details. Physical Examination: BP 158/77 Pulse 83 Temp 98.6 F (37 C) (Oral) Resp 12 Ht 5' 7 (1.702 m) Wt 183 lb 11.2 oz(83.3 kg) SpO2 95% BMI 28.77 kg/m Physical [...] WBC RBC Hgb Hct MCV RDW Plt 07/30/23 0219 9.1 3.53 10.3 32.4 92 [...] 1113 134 99 24 91 Comment: The [place] Diabetes Association (ADA) provides guidance for cutoff values for fasting glucose and random glucose. The ADA defines fasting as no caloric intake for at least 8 hours. Fastingplasma glucose results between 100 to 125 mg/dL [...] Standards of Medical Care in Diabetes 2016, [place] Diabetes Association. Diabetes Care. 2016.39(Suppl 1). 19 0.73 9.3 05/06/23 0358 135 102 23 87 Comment: The [place] Diabetes Association (ADA) provides guidance for cutoff values for fasting glucose and random glucose. The ADA defines fasting as no caloric intake for at least 8 hours. Fastingplasma glucose results between 100 to 125 mg/dL [...] Standards of Medical Care in Diabetes 2016, [place] Diabetes Association. Diabetes Care. 2016.39(Suppl 1). 15 [...] Counseling/educating the patient/family/caregiver Referring/communicating with other health home health care physician - when not reported separately Charting in [facility] * Vickie Pete Russ, PT - 07/30/2023 9:38 AM EDTAssociated Order(s): IP PHYSICAL THERAPY SERVICE REQUEST PHYSICAL THERAPY ACUTE EVALUATION Referral received, chart reviewed. Patient seen from 9:30 to 9:50 on 5W unit for 20 minutes. Eval + treat. Co-eval with OT. Patient required the skills of two therapists for safe mobility and high medical complexity of the patient. Admit date/time: 07/29/2023 1:28 PM Reason for Admit: 83 yo [facility] [employer] [facility] leaving zoroastrianism. Diagnosis: Left frontal/parietal/temporal SDH and 4 mm [...] name and date of . and patient's idband and date of . Risks and Benefits of physical therapy: Patient informed of risks and benefits of treatment SUBJECTIVE: Patient Subjective: Where is my daughter? Patient Identified Goal(s): to walk COASTAL AND ESTUARY SPECIALIST Status: amb with RW? Patient is a poor historian Home: 0 steps to enter rails. 0 steps to bedroom/bathroom rails. Assistance available: lives with daughters? Equipment available: rolling walker? 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, pipeline systems operator, Pulse Oximeter, IV, and Sequential Compression Devices [...] With Patients permission ordered no equipment via [employer] Order. If any questions contact [facility] DME Provider at [phone]. 07/30/2023 6 Clicks Basic Mobility PT Difficulty [...] with ambulation quality and tolerance. Patient would benefitfrom acute PT services of gait training, therex, and theract to improve patient ambulation quality/tolerance, transfer skills and strengthening to enhance functional mobility and safety. Recommend further therapy services in a Jail Setting once medically cleared. Will continue to [...] with the plan. Vickie Pete, PT, DPT #[id number] NA = Not Assessed, I = Independent, NV = Modified Independent, Sup = Supervised, Set up = Physical Assistance for Set-up Only, Min = Minimal Assistance, Mod = Moderate Assistance, Max = Max assistance; Dep = Dependent; AROM = Active Range of Motion; PROM = Passive Range of Motion; MMT = Manual Muscle Test; LE = Lower Extremity * Artem Li MD - 07/29/2023 2:04 PM EDTAssociated Order(s): IP SURGERY NEURO CONSULT Images from the original note were not included. NEUROSURGERY CRANIAL TRAUMA H&P Patient Name: Carly Marcelino Primary Care Physician: No primary care provider on file. CONSULTED BY: ED CONSULTED FOR: SDH CHIEF COMPLAINT: fall HPI: This is a 83 year old with PMH of HTN, CAD (NSTEMI, stent in RCA), carotid stenosis presentingto the ED after a fall leaving zoroastrianism. Was transferred to [facility] from [facility] d/t [place] with a LeftSDH and 4 mm midline shift. Patient tripped and fell leaving zoroastrianism, there was no LOC, she remembers the event, c/o mild WISDOM on the L side and pain from cervical collar, no vision changes or vomiting. 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 On 81 mg [...] concerns. Ayanna Ignacio PA-C Neurosurgery Pager - [phone] 07/29/2023 - 2:04 PM Split/Shared Documentation I [...] exam face to face. I reviewed the PA/MANUFACTURERS REPRESENTATIVE/resident's documentation and discussed the patient with the PA/MANUFACTURERS REPRESENTATIVE/resident. I agree with the PA/MANUFACTURERS REPRESENTATIVE/resident's medical decision making as documented in the PA/MANUFACTURERS REPRESENTATIVE/resident's note. Artem Li MD documented in this [id number] Progress note* Discharge Planning Note - Palmer Sanchez LSW - 08/03/2023 4:15 PM EDT CASE MANAGEMENT/SOCIAL WORK SNF DC NOTE: Pt has been cleared for transfer to SNF on tomorrow 08/04/23 Pt will be transferred to [facility] via Jerel Gutiérrez and Dolores ([id number]) at 10am Nursing report may be called to [phone] station 1. please fax dc med list to [phone] Support person notified: HEBERT ALVAREZ (Daughter) [phone] Patient/Family, team aware of above and agreeable. For discharge, please ensure the following is completed: MD to place DC order, reconcile meds, and print narcotics to go with patient to SNF [employer] Entry to print Discharge Summary, Orr, Summary of Care, Narcotic Scripts, and Signature Page and place in a packet to be given to car pick up driver If transport/discharge needs to be adjusted/cancelled, team (/RN) to cancel transport, update support person, and update receiving facility. [id number] Progress note* Orr - Palmer Sanchez LSW - 08/03/2023 2:58 PM EDT Social Work/Case Management: Reason for placement: PT/OT Therapies Patient level of care required : Skilled Applicant's potential for returning to community: Convalescent stay:<30 days Prognosis: Fair Rehab Potential: Improve Mental/Behavioral status:Oriented Affect: Calm Social Work Assessment Functional status prior to admission: amb with Community agencies active with patient: none Support system: Family support Capacity for independent living/mcfp plan:Return to independent living Other hospital admissions within the past 60 days: No Other pertinent problems: none [id number] History of Present illness Narrative* Suresh Simental MD - 08/03/2023 2:26 PM EDT Images from the original note were not included. GERIATRIC PROGRESS NOTE Patient Name: Carly Marcelino Location: [place] [address] Attending: Yamile Arredondo MD HPI: 83 year old female with a history of HTN, HLD, b/L JANETTE, CAD s/p LETICIA to RCA, prior DVT, cerebral amyloid angiopathy, non-traumatic SAH, epilepsy, asthma, admitted on 07/29/2023 for 11 mm L side SDH with 4 mm MLS s/p fall while leaving zoroastrianism. NSGY recommended non acute neurosurgical intervention. Course [...] / hcpoa, NOK is daughter Hebert Alvarez [phone] - currently full code, daughter to discuss more with patient when cognition improves Discharge planning - tentative discharge plan is SNF, waiting placement Suresh Simental MD INTERVAL HISTORY: Transferred out of TICU to [facility] on 08/01/2023 No events since last [...] tablet, 50 mg, Oral, Daily, Mohini Nguyễn, YO-MANUFACTURERS REPRESENTATIVE, 50 mg at 08/03/23 0811 albuterol (PROVENTIL [...] Daily, Yunior Sanchez MD, 17 g at 811 LORazepam (ATIVAN) tablet, 1 mg, Oral, Q8H PRN, Mike Major Jr., PA-C, 1 mg at 07/31/23 215 metoprolol (LOPRESSOR) split tablet, 12.5 mg, Oral, 2x Daily, Mohini Nguyễn APRN-DOMINGO, 12.5 mg at 08/03/23 08 acetaminophen (TYLENOL) tablet, 650 mg, Oral, q6h, Vickie Hummel PA-C, 650 mg at 08/03/23810 oxyCODONE (ROXICODONE) 5 mg/5 mL oral solution, 2.5 mg, Oral, Q4H PRN, Vickie Hummel PA-C oxyCODONE immediate release tablet, 5 mg, Oral, Q4H PRN, Vickie Hummel PA-C, 5 mg at 08/01/232136 senna (SENOKOT) tablet, 8.6 mg, Oral, At [...] 6 mm or less. 3 mm of tyqm-nx-xajai midline shift. Partial effacement of the left [...] left frontal lobe. 4. 3 mm of nipg-ex-fuvxm midline shift. MACRO: None I spent a total of 37 minutes spent providing patient care on 08/03/2023: Time-based billing justifications: Reviewing (chart, labs, and other clinical notes) Obtaining history (or reviewing separately obtained history) Patient visit (including performing a medically appropriate exam) Referring/communicating with other health home health care physician - when not reported separately Charting in Epic * Derick Edwards APRN-MANUFACTURERS REPRESENTATIVE - 08/03/2023 11:38 AM EDT Images from the original note were not included. GENERAL INFORMATION TRAUMA FLOOR - STAFF NOTE Patient Name: Carly Marcelino Admission Date: 07/29/2023 Patient seen and examined on 08/03/23 INTERVAL HISTORY/EVENTS Background: Carly Marcelino is a 83 year old female with a PMHx of SAH, HTN, HLD, b/L JANETTE, CAD s/p LETICIA to RCA, priorDVT, cerebral amyloid angiopathy, non-traumatic SAH, epilepsy, asthma presented as a transfer from [facility] following mechanical fall on 07/28. OSH imaging [...] occurrences recorded BM: Last BM documented 08/01 PHYSICAL EXAM Vital Signs: Vital sign ranges over the [...] % Min: 95 % Max: 98 % PHYSICAL EXAM GENERAL: Sitting up in bed, alert. NEURO: [...] in last 24 hours. ASSESSMENT & PLAN Diagnoses: S/p Fall 07/29/2023 SDH with MLS [...] in NSGY clinic in 2 weeks with [facility] - Geriatrics c/s, recs: - Delirium [...] Continue pulmonary toilet, encourage IS - Respiratory Television Actor Protocol - Maintain O2 Sats > 92% [...] - NSGY clinic in 2 weeks with [facility], hold ASA until follow up - Routine Trauma follow up not indicated LIBBY Rodriguez Trauma and Acute Care Surgery ASH Pager: [phone]. This patient's plan of care was discussed with Trauma Floor attending, Dr. Yamile Arredondo. * Palmer Sanchez LSW - 08/02/2023 3:55 PM EDT Social Work Progress Note Pt was denied from [facility] and [facility] due to bed availibility. Pt and dtr will give SW new choices in the morning Pt will not need precert SW will continue to follow ILIANA Ortiz * Mohini Nguyễn APRN-CNP - 08/02/2023 6:54 AM EDT Images from the original note were not included. GENERAL INFORMATION TRAUMA FLOOR - STAFF NOTE Patient Name: Carly Marcelino Admission Date: 07/29/2023 Patient seen and examined on 08/02/23 INTERVAL HISTORY/EVENTS Background: Carly Marcelino is a 83 year old female with a PMHx of SAH, HTN, HLD, b/L JANETTE, CAD s/p LETICIA to RCA, priorDVT, cerebral amyloid angiopathy, non-traumatic SAH, epilepsy, asthma presented as a transfer from [facility] following mechanical fall on 07/28. [...] 1 occurrence Stool: 1x Last BM recorded:08/01/23 PHYSICAL EXAM Vital Signs: Vital sign ranges over the [...] % Min: 94 % Max: 98 % PHYSICAL EXAM GENERAL: NAD, sitting up in chair. Sitter [...] reviewed. No new imaging ASSESSMENT & PLAN Diagnoses: 1. S/p Fall 07/29/2023 2. SDH with MLS 3. Acute pain due to trauma 4. Agitation PMHx: SAH, HTN, HLD, b/L JANETTE, CAD s/p LETICIA to RCA, prior DVT, cerebral amyloid angiopathy, non-traumatic SAH, epilepsy, asthma Incidental Findings: Reviewed 08/02/23, KO. None Plan: Neurologic: Acute pain d/t trauma. [...] in nsgy clinic in 2 weeks with [facility] - Geriatrics c/s, recs: - Delirium [...] Continue pulmonary toilet, encourage IS - Respiratory Television Actor Protocol - Maintain O2 Sats > 92% [...] - NSGY clinic in 2 weeks with [facility], hold ASA until follow up - Routine Trauma follow up not indicated Mohini Nguyễn APRN, [facility] Surgical Critical Care Pager: [phone] *For urgent issues arising after 5PM during the week or on weekends/holiday, please page the traumaresident production honing machine operator at [phone]. This patient's plan of care was discussed with Trauma Floor attending, Dr. Yamile Arredondo. * hKushboo Gilman MD - 08/01/2023 5:07 PM EDT Division of Trauma, Surgical Critical Care, S Ticket to Roll Note . Trev Lunsford , who is the RUP. The patient is transferring from [facility], room # 2-590, to Trauma RNF non-[address] [place], room # 8-934. The patient was added to the Trauma Surgery list. Khushboo Gilman MD RUP = Receiving unit provider RNF = Regular nursing floor * Aurea Ventura LISW - 08/01/2023 2:42 PM EDT Social Work Note Updates sent to [facility] and [facility], awaiting response on if able to accept. Updated clinicals sent via [employer]. Pt will not require pre-cert. Pt/pt's daughter with SNF list for back-up choices. [id number] requiredprior to pt's discharge. SW or CM will continue to follow. PATRICIA Valdez LISW * Kev Mederos MD - 08/01/2023 7:09 AM EDT Images from the original note were not included. [facility] DIVISION OF GENERAL SURGERY TRAUMA CRITICAL CARE PROGRESS NOTE Background: Carly Marcelino is a 83 year old female brought in as transfer from [facility] following a fall while walking into zoroastrianism on 07/28. She was found at the [...] acute events, patient waiting for bed on [facility] prior to SNF placement PHYSICAL EXAM: Patient Vitals for the past 24 hrs: BP Temp Temp src Pulse Resp SpO2 08/01/23 0416 117/78 98.3 F (36.8 C) Axillary 92 20 97 % 08/01/23 0000 152/64 98.7 F (37.1 C) Axillary 90 18 99 % 07/31/231999 165/75 97.6 F (36.4 C) Oral 90 [...] Oxycodone 2.5/5 q4h prn moderate-severe pain - CAN FILLING MACHINE OPERATOR following for cog eval, stated patient to [...] concerns GI/Diet: - Regular/thin consistency diet per CAN FILLING MACHINE OPERATOR - senna, miralax, prn dulcolax Renal/Electrolytes: - [...] in AM 07/31) Final disposition: Transfer to [facility], f/u PT/OT - likely SNF Yunior Sanchez MD PGY-1 EGS/TRAUMA/ICU STAFF NOTE: I saw and evaluated the patient. I personally obtained the kuo and critical portions of the historyand physical exam. I reviewed the provider's documentation and discussed the patient with the provider. I agree with the provider's medical decision making as documented in the provider's note. I pers onally reviewed any images obtained in the last 24 hours of evaluation. Additional findings, impression, and plan: none Kev Mederos MD Emergency General Surgery Surgical Critical Care Trauma Surgery Pager: [phone] * Suresh Simental MD - 07/31/2023 2:06 PM EDT Images from the original note were not included. GERIATRIC PROGRESS NOTE Patient Name: Carly Marcelino Location: [facility] Attending: Kev Mederos MD HPI: 83 year old female with a history of HTN, HLD, b/L JANETTE, CAD s/p LETICIA to RCA, prior DVT, cerebral amyloid angiopathy, non-traumatic SAH, epilepsy, asthma, admitted on 07/29/2023 for 11 mm L side SDH with 4 mm MLS s/p fall while leaving zoroastrianism. NSGY recommended non acute neurosurgical intervention. Course [...] / hcpoa, NOK is daughter Hebert Alvarez [phone] - currently full code, daughter to discuss [...] Daily, Yunior Sanchez MD, 17 g at 818 LORazepam (ATIVAN) tablet, 1 mg, Oral, Q8H [...] 1113 134 99 24 91 Comment: The [place] Diabetes Association (ADA) provides guidance for cutoff values for fasting glucose and random glucose. The ADA defines fasting as no caloric intake for at least 8 hours. Fastingplasma glucose results between 100 to 125 mg/dL [...] Standards of Medical Care in Diabetes 2016, [place] Diabetes Association. Diabetes Care. 2016.39(Suppl 1). 19 [...] 6 mm or less. 3 mm of qwgy-ic-xmifn midline shift. Partial effacement of the left [...] left frontal lobe. 4. 3 mm of jzco-ha-sexdk midline shift. MACRO: None I spent a total of 36 minutes spent providing patient care on 07/31/2023: Time-based billing justifications: Reviewing (chart, labs, and other clinical notes) Obtaining history (or reviewing separately obtained history) Patient visit (including performing a medically appropriate exam) Referring/communicating with other health home health care physician - when not reported separately Charting in [facility] * Aurea Ventura LISW - 07/31/2023 7:55 AM EDT Social Work Note Following pt for SNF planning. Referrals pending for [facility] and [facility], awaiting SNF acceptance. Pt will not require pre-cert. [id number] initiated. -please update SW when pt's medical clearance for DC to SNF is anticipated. SW or CM will continue to follow for SNF planning. PATRICIA Valdez LISW * Vignesh Galvin PA-C - 07/31/2023 6:45 AM EDT Images from the original note were not included. [facility] NEUROSURGERY DAILY PROGRESS NOTE SUBJECTIVE: - No [...] 9.1 3.53 10.3 32.4 92 14.5 224 05/19/24 1722 29 07/29/23 1722 0.97 07/29/23 1722 [...] to the ED after a fall leaving zoroastrianism with a head injury. On 81 mg [...] in 2 weeks with repeat head CT wocontrast. HOLD Aspirin until follow up. ADDENDUM: -Okay for q4 nc from NSGY perspective Jolene Snowden MD Neurological Surgery, PGY-2 Service Pager: [phone] 07/31/2023 - 6:45 AM * Kev Mederos MD - 07/31/2023 6:40 AM EDT Images from the original note were not included. [facility] DIVISION OF GENERAL SURGERY TRAUMA CRITICAL CARE PROGRESS NOTE Background: Carly Marcelino is a 83 year old female brought in as transfer from [facility] following a fall while walking into zoroastrianism on 07/28. She was found at the [...] Oxycodone 2.5/5 q4h prn moderate-severe pain - CAN FILLING MACHINE OPERATOR following for cog eval, stated patient to [...] concerns GI/Diet: - Regular/thin consistency diet per CAN FILLING MACHINE OPERATOR - senna, miralax, prn dulcolax Renal/Electrolytes: - [...] in AM 07/31) Final disposition: Transfer to [facility], f/u PT/OT Yunior Sanchez MD PGY-1 EGS/TRAUMA/ICU STAFF NOTE: I saw and evaluated the patient. I personally obtained the kuo and critical portions of the historyand physical exam. I reviewed the provider's documentation and discussed the patient with the provider. I agree with the provider's medical decision making as documented in the provider's note. I pers onally reviewed any images obtained in the last 24 hours of evaluation. Additional findings, impression, and plan: none Kev Mederos MD Emergency General Surgery Surgical Critical Care Trauma Surgery Pager: [phone] * Kev Mederos MD - 07/30/2023 3:19 PM EDT Images from the original note were not included. [facility] DIVISION OF GENERAL SURGERY TRAUMA CRITICAL CARE HISTORY & PHYSICAL HPI: Carly Marcelino is a 83 year old female brought in as transfer from [facility] following a fall while walking into zoroastrianism on 07/28. She was found at the [...] Resource Strain: Low Risk (05/04/2023) Received from [facility] Overall Financial Resource Strain (CARDIA) Difficulty of Paying Living Expenses: Not hard at all Food Insecurity: No Food Insecurity (05/04/2023) Received from [facility] Hunger Vital Sign Worried About Running Out of Food in the Last Year: Never true Ran Out of Food in the Last Year: Never true Transportation Needs: No Transportation Needs (05/04/2023) Received from [facility] Transportation Lack of Transportation (Medical): No Lack [...] Hct MCV RDW Plt PT aPTT INR 07/30/23218 9.1 3.53 10.3 32.4 92 14.5 [...] Oxycodone 2.5g q4h prn moderate-severe pain - CAN FILLING MACHINE OPERATOR consult for cog eval Cardiovascular: no current [...] Final ED disposition: Step down; transfer to [facility] pending neurosurg decreasing neuro check frequency; PT/OT eval pending EGS/TRAUMA/ICU STAFF NOTE: I saw and evaluated the patient. I personally obtained the kuo and critical portions of the historyand physical exam. I reviewed the provider's documentation and discussed the patient with the provider. I agree with the provider's medical decision making as documented in the provider's note. I pers onally reviewed any images obtained in the last 24 hours of evaluation. Additional findings, impression, and plan: none Kev Mederos MD Emergency General Surgery Surgical Critical Care Trauma Surgery Pager: [phone] Kev Mederos MD * Aurea Ventura LISW - 07/30/2023 2:53 PM EDT SW ICU Assessment Referral: [facility] met with pt and pt's daughter Hebert Alvarez at bedside. Hx: 83 year old female brought in as transfer from [facility] following a fall while walking into zoroastrianism this morning. She was found at the [...] adult child who is pt's NOK-- Hebert Widman, . Pt would like her [id number]-afs Vilma Rust [phone] as her secondary contact. Social Supports/Coping: Pt's [...] from the medicare.gov compare site for SNF. [place] of Choice was provided to the patient/patient sales representative aircraft. Pt/family selected [facility] as 1st SNF choice, 2nd choice is [facility]. Referrals initiated via [facility]. For SNF: Awaiting SNF acceptance. Pt will not require a pre-cert. RN to complete Golden[employer]. [id number] initiated in [facility] or [place] will continue to follow. PATRICIA Valdez LISW * Jolene Snowden MD - 07/30/2023 6:41 AM EDT Images from the original note were not included. [facility] NEUROSURGERY DAILY PROGRESS NOTE SUBJECTIVE: - No [...] MCV RDW Plt PT aPTT INR 07/30/23 021 9.1 3.53 10.3 32.4 92 14.5 224 [...] to the ED after a fall leaving zoroastrianism with a head injury. On 81 mg [...] Snowden MD Neurological Surgery, PGY-2 Service Pager: [phone] 07/30/2023 - 6:42 AM documented in this [id number] Plan of care note* Care Plan Note - Ester Jiménez RN - 08/03/2023 2:10 PM EDT Problem: Routine Care: Goal: Patient care will be managed and maintained throughout hospital stay per unit specific routine care procedure 08/03/2023 1409 by Ester Jiménez RN Outcome: Progressing Note: Hourly rounding performed, call cuevas within reach and bed in low locked position 08/03/2023 0713 by Ester Jiménez RN Outcome: Progressing Goal: Ability to acheive therapeutic anticoagulation therapy with be maintained 08/03/2023 1409 by Ester Jiménez RN Outcome: Progressing 08/03/2023 07 by Ester Jiménez RN Outcome: Progressing Problem: Impaired Skin Integrity: Goal: Skin integrity will improve and/or be maintained 08/03/2023 140 by Ester Jiménez RN Outcome: Progressing 08/03/2023712 by Ester Jiménez RN Outcome: Progressing Problem: Altered Elimination: Goal: Establishment of individualized bowel routine will be obtained 08/03/2023 1409 by Ester Jiménez RN Outcome: Progressing 08/03/2023712 by Ester Jiménez RN Outcome: Progressing Goal: Establishment of normal urinary function will be acheived and maintained 08/03/2023 140 by Ester Jiménez [...] Goal: Will be free of DVT 08/03/2023 140 by Ester Jiménez RN Outcome: Progressing 08/03/2023712 by Ester Jiménez RN Outcome: Progressing Problem: Activity Intolerance: Goal: Will be free of DVT 08/03/2023 140 by Ester Jiménez RN Outcome: Progressing 08/03/2023712 by Ester Jiménez RN Outcome: Progressing Problem: Fluid and Electrolyte Imbalance: Goal: Will show no signs and symptoms of excessive bleeding 08/03/2023 140 by Ester Jiménez RN Outcome: Progressing 08/03/2023712 by Ester Jiménez RN Outcome: Progressing Problem: Altered Neurological Status: Goal: Optimal neurological status will be maintained or regained 08/03/2023 140 by Ester Jiménez RN Outcome: Progressing 08/03/2023712 by Ester Jiménez RN Outcome: Progressing Goal: Altered Level of Consciousness will improve 08/03/2023 140 by Ester Jiménez [...] Respiratory Status with Minimal Ventilatory/Oxygen Support 08/03/2023 140 by Ester Jiménez RN Outcome: [...] socks and call cuevas within reach. 08/03/2023 0713 by Ester Jiménez RN Outcome: [...] 0713 by Ester Jiménez RN Outcome: Progressing [id number] Hospital Discharge instructions* Discharge Instructions* Mohini Nguyễn, YO-MANUFACTURERS REPRESENTATIVE - 08/03/2023 12:05 PM EDT Discharge Instructions: Date of admission: 07/29/2023 Date of discharge: 08/04/2023 You are being discharged to [facility]. Follow up: - Please call to schedule your follow-up appointments - information provided separately. - You will need to follow up with: - NSGY clinic in 2 weeks with [facility], hold ASA until follow up - Routine Trauma follow up not indicated - See below for information regarding contacting your primary care physician or establishing care at [facility] if you do not already have one. [...] IMMEDIATELY. Alternatively, [facility] Department[facility]MED[facility]AT[facility] for an emergent evaluation by the Trauma [...] or if your insurance requires,call your physician forauthorization to be seen in a specialty clinic. If you do not have a primary physician please call [phone] for guidance on finding a [facility] provider. If you have questions or concerns , if your condition worsens or you develop new symptoms please call the [facility] at [phone]. ' * Attachments The following attachments cannot be sent through Care Everywhere. * Subdural Hematoma Discharge Instructions (Haitian) documented in this [id number] Consult note* Valerie Us, FAUSTINO - 08/03/2023 11:50 AM EDT OCCUPATIONAL THERAPY PROGRESS SUMMARY Patient seen from [...] Dep Max Mod Min CG CS DS NV I Set-Up Cues Comment Feeding x x Anticipated to cut food Grooming/ Hygiene x x Assist to open packages and containers, pt completed oral hygiene in a seatedposition Bathing: Upper Body x Simulated sponge bathing [...] With Patients permission ordered no equipment via [employer] Order. If any questions contact [facility] DME Provider at [phone]. 08/03/2023 6 Clicks Daily Activity OT Help [...] Guard Assist/Supervision 4 - Non = Modified [place]/Independent ASSESSMENT: ASSESSMENT: Recommend further therapy services in a Skilled Rehab Setting once medically cleared. Will continueto follow patient while in hospital as appropriate. [...] NA = Not Assessed, I = Independent, NV = Modified Independent, Sup = Supervised, Set up = Physical Assistance for Set-up Only, Min = Minimal Assistance, Mod = Moderate Assistance, Max = Max assistance; Dep = Dependent; AROM = Active Range of Motion;PROM=Passive Rangeof Motion; MMT = Manual Muscle Test; Shld= Shoulder; Add = Adduction; Abd = Abduction [id number] Plan of care note* Care Plan Note - Trish Oconnor RN - 08/02/2023 12:30 PM EDT Problem: Routine Care: Goal: Patient care will [...] call light within reach. Sitter at bedside. [id number] Consult note* Shital Hinds, PT - 08/01/2023 11:47 AM EDT PHYSICAL THERAPY PROGRESS SUMMARY Patient seen from [id number] on 5W unit for 17 minute treatment. [...] Dep Max Mod Min CG CS DS NV I Comment Roll to (R) sidelying x [...] ASSESSMENT: Recommend further therapy services in a Jail Setting once medically cleared. Will continue to [...] NA = Not Assessed, I = Independent, NV = Modified Independent, Sup = Supervised, Set up = Physical Assistance for Set-up Only, Min = Minimal Assistance, Mod = Moderate Assistance, Max = Maximal assistance; Dep = Dependent; AROM = Active Range of Motion; PROM = Passive Range of Motion; MMT = Manual Muscle Test [id number] Plan of care note* Care Plan Note - Avani Noonan RN - 08/01/2023 10:10 AM EDT Problem: Routine Care: Goal: Patient care will [...] time, order discontinued. Will continue to monitor. [id number] Consult note* Skyla Childers - 08/01/2023 10:06 AM EDT Dietitian vs DietaryTech: Dietary TechDiet Home Companion Nutrition Screening Reason for visit: LOS 5 [...] At this time, patient is at low nutritionrisk. DTR to provide routine follow up. Will continue to follow, BHARATI Zabala (Nutrition) Pager #[phone]. [id number] Plan of care note* Care Plan Note - Manju King RN - 08/01/2023 12:46 AM EDT Problem: Routine Care: Goal: Patient care will [...] Free from injury during hospitalization Outcome: Progressing [id number] Plan of care note* Care Plan Note - Daina Hayes RN - 07/31/2023 9:29 AM EDT Problem: Routine Care: Goal: Patient care will [...] Free from injury during hospitalization Outcome: Progressing [id number] Progress note* Aurea Espinal LISW - 07/30/2023 3:24 PM EDT Social Work/Case Management: Reason for placement: PT/OT [...] system: Hebert [place], . 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 Reason for Admit: 83 yo transfer from [facility] s/p fall leaving zoroastrianism. Diagnosis: Left frontal/parietal/temporal SDH and 4 mm [...] Subjective: [facility] Patient Identified Goal(s):none stated Home Living [...] Dep Max Mod Min CG CS DS NV I Set-Up Comment Feeding x x Grooming/Hygiene x x Bathing:UB x Simulated sponge bathing Bathing:LB x Simulated sponge bathing Dressing:UB x Anticipated to don shirt Dressing: LB x Anticipated to don pants Toileting x Anticipated Transfers/Bed Mobility: Assistance Level Dep Max Mod Min CG CS DS NV I Set-Up Comment Toilet Transfers x2 anticipated [...] With Patients permission ordered no equipment via [employer] Order. If any questions contact [facility] DME Provider at [phone]. 07/30/2023 6 Clicks Daily Activity OT Help [...] Guard Assist/Supervision 4 - Non = Modified [place]/Independent ASSESSMENT: Recommend further therapy services in a Skilled Rehab Setting once medically cleared. Will continueto follow patient while in hospital as appropriate. [...] equipment / compensatory strategy training, patient / f amily education and discharge planning, referral to appropriate support services, and pain Management able to discuss the evaluation findings and treatment plan with the patient/family. The patient/family did participate in the development of plan and goals. Valerie Us OT NA = Not Assessed, I = Independent, NV = Modified Independent, Sup = Supervised, Set up = Physical Assistance for Set-up Only, Min = Minimal Assistance, Mod = Moderate Assistance, Max = Max assistance; Dep = Dependent; AROM = Active Range of Motion;PROM=Passive Rangeof Motion; MMT = Manual Muscle Test; UB = Upper Body; LB = Lower Body [id number] Consult note* Toshia Sue, [facility]CAN FILLING MACHINE OPERATOR - 07/30/2023 1:25 PM EDT SPEECH-LANGUAGE PATHOLOGY ACUTE EVAL AC5-207/1 Referral received, [...] GERD, Pulmonary Htn, seizure disorder, cerebral amyloid angiopathy,prior SAH and recent DVT presenting to ED on 07/29/2023 for fall. Injuries: Left subdural hematoma with 4mm midline shift L sided facial abrasion L hand laceration Bruising contusion to bilateral knees Precautions: Delirium, Fall; Full code. Imaging: CT [...] left frontal lobe. 4. 3 mm of [id number] midline shift. Prior Level of Functioning: Will [...] . Patient apprehensive to accept PO from CAN FILLING MACHINE OPERATOR. Patient also demo paranoid behaviors re: other staff presence and monitors. - CAN FILLING MACHINE OPERATOR able to increase patient comfort slowly over time of session through verbal discussion. Patient was not receptive to CAN FILLING MACHINE OPERATOR review of prior session held earlier this date, factual information and/or verbal reasoning presented. - Expressive language was intact throughout spontaneous output this session - Patient followed basic instruction and direct commands throughout this session - Patient able to to ID that she has dentures, specifics regarding and presence. CAN FILLING MACHINE OPERATOR cleansed and provided to patient. Patient participated in choice making throughout session including whether to I'ly complete don of dentures and self feeding vs accepting assistance. - Patient with poor orientation to place and situation; CAN FILLING MACHINE OPERATOR provided review with specific details. Patient then reporting hospital to be despite ongoing review of current place/facility. Later reports typically receives care at [facility]. CLINICAL BEDSIDE SWALLOW EVALUATION Current Diet [...] uvula; Diminished velar elevation b/l Patient and CAN FILLING MACHINE OPERATOR administered all consistencies presented during this assessment. [place] Swallow Protocol: Patient decline participation Clinical Assessment [...] observations only given patient declined participation in [place] Swallow Protocol. Patient consumed varying solid consistencies andthin liquids without overt s/s of airway invasion this session. Provided regular texture solids, patient exhibited slow incomplete mastication cycle with pocketing of partially masticated bolus in R buccal cavity. Patient was inattention to task of eating with talking and other activities completedprior to finishing bolus breakdown and clearance of [...] will complete basic-moderate level organization tasks (sequencing, convergent/divergentreasoning tasks) with 80% accuracy to improve mental [...] phrase/sentence completion, picture description, spontaneous production) with 90%<accuracy in order to improve effectiveness and efficiency [...] for colonization of oropharyngeal bacteria - Anticipate CAN FILLING MACHINE OPERATOR services needed in discharge setting; consider PMR consult - If patient were to return home at this time, would benefit from Constant Supervision- Person may not be left alone. Requires a caregiver to watch 24 hours a day. Patient would benefit from assistance with ADLs and IADLs Toshia Sue CCC-CAN FILLING MACHINE OPERATOR, MS-CCC/CAN FILLING MACHINE OPERATOR Speech and Language Pathologist Secure chat preferred ([phone] M,T,TH, F) Pager [phone] [id number] Consult note* Toshia Sue CCC-CAN FILLING MACHINE OPERATOR - 07/30/2023 10:29 AM EDTAssociated Order(s): IP CAN FILLING MACHINE OPERATOR SERVICE REQUEST SPEECH-LANGUAGE PATHOLOGY ACUTE EVAL AC5-207/1 Time In: 09 Time Out: 1029 Session Duration: 37 minutes Referral received, chart reviewed and history is noted. Patient identified by patient/armband stating name and date of . Date of Admit: 07/29/23 Reason for Consult: cog eval History/Diagnosis: 83 year old year old female with a history of HTN/HLD, CAD(Nstemi s/p PCI RCA, Carotid stenosis, chronic anemia, GERD, Pulmonary Htn, seizure disorder, cerebral amyloid angiopathy,prior SAH and recent DVT presenting to ED on 07/29/2023 for fall. Injuries: Left subdural hematoma with 4mm midline shift L sided facial abrasion L hand laceration Bruising contusion to bilateral knees No past medical history on file. No past surgical history on file. Precautions: Delirium, Fall; Full code. Imaging: CTH [...] left frontal lobe. 4. 3 mm of [id number]-[id number] midline shift. Prior Level of Functioning: Will [...] level intensities. Patient reports adequate hearing of CAN FILLING MACHINE OPERATOR. Vision: Patient reports she has poor vision although demo ability to participate in basic visual tasks this date which are present in large, bold print. Language: Auditory Comprehension: -1 step commands: 5/5 -2 step commands: 0/5 -[place]/biographical y/n questions: 4/5 -Abstract y/n questions: 05/16 however, patient perseveratively responded no to all [...] words, and phrases. Breakdown occurs at simple sentencelevel. Verbal Expression: Language production is variable in direct tasks and may be impacted by deficits in attention and organization. Spontaneous productions are perseverative in nature, but free of paraphasias and/or anomia. -Biographical information: WFL -Automatics: Intact for digits 1-20 -Confrontation naming: Objects: 05/12; Line drawings: 07/17; +2 with phonemic cue (patient I'ly demo circumlocution x1 Oh, my mother used toplay that. It was wonderful. ---Violin) -Repetition: Intact -[place] phrase completion: Intact -Open ended phrase completion: Intact -Responsive naming: Intact -Response to open ended questions: Intact; perseverative, but with clarifications or repetitions ofquestion, appropriate responses achieved. -Picture description: Able to [...] Control 0/12 Clock Drawing 0/4 Incidental Recall 28 Inhibition Not administered d/t vision Verbal Production [...] dangerous situations (e.g. Cookie Theft picture), but doesnot demo full awareness and implementation of safety [...] time, situation), attention, organization, executive function, and insight.Language is characterized by perseverative expression of thoughts/ideas/topics with intermittent language errors during confrontation naming and picture description tasks. Patient is stimulable for use of cuing strategies. Written language is impaired at the basic level (name and single word) with question of visuospatial component. Patient intermittently aware of general errors with intermittentattempts to self correct which are perseverative and ineffective. Perseveration continues throughout all motor tasks. Receptive language is intact at basic level with breakdowns at moderate level information and 2-step simple command level. Reading comprehension is impaired at the simple sentence +level. The deficits identified during this assessment negatively impact the patient's ability to safely and efficiently complete ADL and IADL tasks within the current, home and community environmentswithout direct assistance. Bedside swallow evaluation was held [...] will complete basic-moderate level organization tasks (sequencing, convergent/divergentreasoning tasks) with 80% accuracy to improve mental [...] phrase/sentence completion, picture description, spontaneous production) with 90%<accuracy in order to improve effectiveness and efficiency with verbal communication. Prognosis: (+) Cooperation (-) PMH (+) New onset of acute issues (-) Age (-) Cognitive impairments Recommendations: - CAN FILLING MACHINE OPERATOR to complete bedside swallow evaluation pending approval for PO intake - HOB elevated to 30< degree angle at all times - Rigorous oral care Q3-4 with suction toothbrush kit in order to promote moistening of mucosa and reduce risk for colonization of oropharyngeal bacteria - Anticipate CAN FILLING MACHINE OPERATOR services needed in discharge setting; consider PMR consult - If patient were to return home at this time, would benefit from Constant Supervision- Person may not be left alone. Requires a caregiver to watch 24 hours a day. Patient would benefit from assistance with ADLs and IADLs Toshia Sue CCC-CAN FILLING MACHINE OPERATOR, MS-CCC/CAN FILLING MACHINE OPERATOR Speech and Language Pathologist Secure chat preferred ([phone] M,T,TH, F) Pager [phone] [id number] Consult note* Jer Serra MD - 07/30/2023 9:52 AM EDT Associated Order(s): IP GERIATRIC CONSULT Images from the original note were not included. GERIATRIC CONSULTATION Patient Name: Carly Marcelino Location: [place] [address] PCP: No primary care provider on file. [...] Cognition impairment Called Daughter Hebert ALVAREZ,HEBERT Daughter [phone] Before this admission Patient was living with her DTR and MILE and just moved to her own home like aweek ago to try to live independently, by [...] dysphagia Currently NPO, Bedside eval pending. - CAN FILLING MACHINE OPERATOR for swallow evaluation Advanced care planning, goals of care - NO living will and hcpoa Full code Discharge planning - tentative discharge plan is possible Jail facility for few weeks and later Home with Daughter with [facility] services As per today's assessment pt will need 24X7 supervision. She will require Assistance with Adls and IADLs after discharge. Thank you for the consultation and allowing the Geriatric Medicine service to work with you for thebenefit of your older patient. Jer Serra MD Department of Geriatric Medicine Number of children: 2 kids, Son this year. Primary Caregiver: DTR Supportive family or social network: Yes Receiving community services: Yes Advance Care Planning: Code Status: Full Code Living Will: No Health Care Power of Manufacturing Project Engineer: No Review of Systems: Review of Systems [...] and memory loss. The patient is nervous/anxious andhas insomnia. Patient's Medications, Past Medical, Surgical, Social, and Family History have been reviewed. Please see relevant sections in [facility] EMR for details. Physical Examination: BP 158/77 Pulse 83 Temp 98.6 F (37 C) (Oral) Resp 12 Ht 5' 7 (1.702 m) Wt 183 lb 11.2 oz(83.3 kg) SpO2 95% BMI 28.77 kg/m Physical [...] WBC RBC Hgb Hct MCV RDW Plt 07/30/23 0219 9.1 3.53 10.3 32.4 92 [...] 1113 134 99 24 91 Comment: The [place] Diabetes Association (ADA) provides guidance for cutoff values for fasting glucose and random glucose. The ADA defines fasting as no caloric intake for at least 8 hours. Fastingplasma glucose results between 100 to 125 mg/dL [...] Standards of Medical Care in Diabetes 2016, [place] Diabetes Association. Diabetes Care. 2016.39(Suppl 1). 19 0.73 9.3 05/06/23 0358 135 102 23 87 Comment: The [place] Diabetes Association (ADA) provides guidance for cutoff values for fasting glucose and random glucose. The ADA defines fasting as no caloric intake for at least 8 hours. Fastingplasma glucose results between 100 to 125 mg/dL [...] Standards of Medical Care in Diabetes 2016, [place] Diabetes Association. Diabetes Care. 2016.39(Suppl 1). 15 [...] Counseling/educating the patient/family/caregiver Referring/communicating with other health home health care physician - when not reported separately Charting in [facility] [employer] Work Phone: 1(428) 698-723605-20-2024 Consult note* Vickie Pete, PT - 07/30/2023 9:38 AM EDTAssociated Order(s): IP PHYSICAL THERAPY SERVICE REQUEST PHYSICAL THERAPY ACUTE EVALUATION Referral received, chart reviewed. Patient seen from 9:30 to 9:50 on 5W unit for 20 minutes. Eval + treat. Co-eval with OT. Patient required the skills of two therapists for safe mobility and high medical complexity of the patient. Admit date/time: 07/29/2023 1:28 PM Reason for Admit: 83 yo transfer from [facility] s/p fall leaving zoroastrianism. Diagnosis: Left frontal/parietal/temporal SDH and 4 mm [...] name and date of . and patient's idband and date of . Risks and Benefits of physical therapy: Patient informed of risks and benefits of treatment SUBJECTIVE: Patient Subjective: Where is my daughter? Patient Identified Goal(s): to walk COASTAL AND ESTUARY SPECIALIST Status: amb with RW? Patient is a poor historian Home: 0 steps to enter rails. 0 steps to bedroom/bathroom rails. Assistance available: lives with daughters? Equipment available: rolling walker? 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, pipeline systems operator, Pulse Oximeter, IV, and Sequential Compression Devices [...] With Patients permission ordered no equipment via [employer] Order. If any questions contact [facility] DME Provider at [phone]. 07/30/2023 6 Clicks Basic Mobility PT Difficulty [...] with ambulation quality and tolerance. Patient would benefitfrom acute PT services of gait training, therex, and theract to improve patient ambulation quality/tolerance, transfer skills and strengthening to enhance functional mobility and safety. Recommend further therapy services in a Jail Setting once medically cleared. Will continue to [...] with the plan. Vickie Pete, PT, DPT #[id number] NA = Not Assessed, I = Independent, NV = Modified Independent, Sup = Supervised, Set up = Physical Assistance for Set-up Only, Min = Minimal Assistance, Mod = Moderate Assistance, Max = Max assistance; Dep = Dependent; AROM = Active Range of Motion; PROM = Passive Range of Motion; MMT = Manual Muscle Test; LE = Lower Extremity [employer] Work Phone: 1([phone]) 829-325605-20-2024 Progress note* Progress Notes - Miguel - Daina Lyons RN - 07/30/2023 5:00 AM EDT 0500 - At 0400 neuro check, pt [...] IV and we were not trying to hurther. Pt also has not voided since around 2200 with straight cath. This RN explained that I was going to check her bladder. While bladder scanning the pt, pt asked who this RN was and why I was checking her bladder multiple times. This RN explained that I am her nurse because she in the hospital andthat since she had not peed in 6 hours, I needed to make sure that her bladder was not full. Dr. Gilman notified, stated that she would notified neurosurgery. 509 Viviana Marrero PA-C down to assess pt. Viviana stated that pt did not need repeat CT head. [id number] Plan of care note* Treatment Plan Note - Viviana Marrero PA-C - 07/29/2023 11:44 PM EDT NSGY Treatment Plan Note Repeat head CT stable. Okay for q2h neurochecks. Viviana Marrero PA-C Neurosurgery Service Pager [phone] [employer] Work Phone: 1(595) 328-294505-19-2024 Physician Emergency department Note* Rebecca Wood MD - 07/29/2023 6:34 PM EDT EMERGENCY DEPARTMENT - VISIT NOTE HISTORY OF PRESENT ILLNESS No chief complaint on file. Cardiac Catheterization Technician: not needed - patient preferred language is Haitian. 83 year old female brought in as transfer from [facility] following a mechanical fall while walking into zoroastrianism this morning. She was found at the OSH to have ICH with midline shift for which she was transferred to . + ASA,prior history of AC which was d/c d/t prior SAH. REVIEW OF SYSTEMS Review of Systems Musculoskeletal: Knee pain Neurological: Positive for headaches. PAST HISTORY Pertinent Past History: No past medical history on file. Patient Active Problem List: Subdural hematoma (HCC) [S06.5XAA] Pertinent Social History: PHYSICAL EXAM BP 156/65 Pulse 67 Temp [...] and ED COURSE Discussion with External Provider: Exhibit Display Representative from trauma surgery service recommends admission to TICU Independent Test Interpretation: Lab studies reviewed, please see ED course Janny Ellison Course: ED Course as of 07/29/23 1834 [...] old female brought in as transfer from [facility] for SDH after a mechanical fall Patient is clinically and HD stable. Vitals within acceptable ranges. CT head (read from [facility]): L frontal/parietal/temporal SDH with mass effect and midline shift Patient also had XR L hip, R knee, CT C/A/P, C/T/L spines- negative except for 1.5mm L nasal septumdeviation per Dr. Cisneros at . Patient was [...] opportunity to ask questions. Rebecca Wood MD [id number] Emergency department Note* Rebecca Wood MD - 07/29/2023 6:34 PM EDT EMERGENCY DEPARTMENT - VISIT NOTE HISTORY OF PRESENT ILLNESS No chief complaint on file. Cardiac Catheterization Technician: not needed - patient preferred language is Haitian. 83 year old female brought in as transfer from [facility] following a mechanical fall while walking into zoroastrianism this morning. She was found at the OSH to have ICH with midline shift for which she was transferred to . + ASA,prior history of AC which was d/c d/t prior SAH. REVIEW OF SYSTEMS Review of Systems Musculoskeletal: Knee pain Neurological: Positive for headaches. PAST HISTORY Pertinent Past History: No past medical history on file. Patient Active Problem List: Subdural hematoma (HCC) [S06.5XAA] Pertinent Social History: PHYSICAL EXAM BP 156/65 Pulse 67 Temp [...] and ED COURSE Discussion with External Provider: Exhibit Display Representative from trauma surgery service recommends admission to TICU Independent Test Interpretation: Lab studies reviewed, please see ED course Janny Ellison Course: ED Course as of 07/29/23 1834 [...] old female brought in as transfer from [facility] for SDH after a mechanical fall Patient is clinically and HD stable. Vitals within acceptable ranges. CT head ([facility] L frontal/parietal/temporal SDH with mass effect and midline shift Patient also had XR L hip, R knee, CT C/A/P, C/T/L spines- negative except for 1.5mm L nasal septumdeviation per Dr. Cisneros at . Patient was [...] opportunity to ask questions. Rebecca Wood MD * Carlie Jamison RN - 07/29/2023 1:38 PM EDT Prehospital Medications: 50 mcg fentanyl * Carlie Jamison RN - 07/29/2023 1:38 PM EDT Mechanical fall walking into zoroastrianism today, head lac with subdural hematoma * Janny Ellison MD - 07/29/2023 1:35 PM EDT Fall [...] note. JANNY IGLESIAS MD documented in this [id number] Plan of care note* Care Plan Note - Akin Hendricks RN - 07/29/2023 5:27 PM EDT Problem: Routine Care: Goal: Patient care will [...] or regained Note: Complete neurologic assessment Q1 [id number] Plan of care note* Treatment Plan Note - Ayanna Ignacio PA-C - 07/29/2023 4:41 PM EDT NEUROSURGERY TREATMENT PLAN NOTE rCTH reviewed and [...] concerns. Ayanna Ignacio PA-C Neurosurgery Pager - [phone] T [facility] Work Phone: 1([phone]) 350-737705-19-2024 Plan of care note* Treatment Plan Note - Vickie Hummel PA-C - 07/29/2023 3:04 PM EDT Division of Trauma, Surgical Critical Care, EGS Ticket to Roll Note . Dr. Sanchez, who is the RUP. The patient is transferring from ED, room # 33, to TICU, room # 207-1. The patient was added to theTrauma Surgery list. Vickie Hummel PA-C RUP = Receiving unit provider RNF = Regular nursing floor [employer] Work Phone: [phone] Consult note* Artem Li MD - 07/29/2023 2:04 PM EDTAssociated Order(s): IP SURGERY NEURO CONSULT Images from the original note were not included. NEUROSURGERY CRANIAL TRAUMA H&P Patient Name: Carly Marcelino Primary Care Physician: No primary care provider on file. CONSULTED BY: ED CONSULTED FOR: SDH CHIEF COMPLAINT: fall HPI: This is a 83 year old with PMH of HTN, CAD (NSTEMI, stent in RCA), carotid stenosis presentingto the ED after a fall leaving zoroastrianism. Was transferred to [facility] from [facility] d/t [place] with a LeftSDH and 4 mm midline shift. Patient tripped and fell leaving zoroastrianism, there was no LOC, she remembers the event, c/o mild WISDOM on the L side and pain from cervical collar, no vision changes or vomiting. 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 On 81 mg [...] concerns. Ayanna Ignacio PA-C Neurosurgery Pager - [phone] 07/29/2023 - 2:04 PM Split/Shared Documentation I [...] exam face to face. I reviewed the PA/MANUFACTURERS REPRESENTATIVE/resident's documentation and discussed the patient with the PA/MANUFACTURERS REPRESENTATIVE/resident. I agree with the PA/MANUFACTURERS REPRESENTATIVE/resident's medical decision making as documented in the PA/MANUFACTURERS REPRESENTATIVE/resident's note. Artem Li MD [facility] Work Phone: [phone] 988-661905-19-2024 Evaluation + Plan noteExtracted from:Title: ED NoteAuthor:Stacia Dwyer DODate:07/29/23 Altered mental status (R41.8 2: Altered mental [...] Once, Stop date 07/29/23 12:19:00 EDT, STAT, Startdate 07/29/23 12:19:00 EDT, 07/29/23 12:19:00 EDT morphine, [...] Pelvis XR Knee Complete 4+ Views Right [facility]05-19-2024 History of Present illness Narrative* Lacey Mendez LISW - 07/29/2023 1:59 PM EDT CAT 2 Pt is a 83 y/o F who arrived via [facility] from [facility] s/p fall. Per report, pt tripped and fell while walking into zoroastrianism this morning. Pt presents with a subdural head bleed & shift. Daughter present at outside hospital. SW contacted daughter Hebert Alvarez [phone] and provided her with an update. Daughter will be coming to the hospital shortly. Daughter made aware of trauma exam and neurosurgery consult. PLAN: Admit. JULIO CESAR Ram E.D. Social Work documented in this [id number] History and physical note* Nahid Molina MD - 07/29/2023 1:39 PM EDT Images from the original note were not included. [facility] Department of Surgery Division of Trauma Surgery, Acute Care Surgery, Critical Care, and Gregory TRAUMA SURGERY HISTORY AND PHYSICAL Carly Marcelino [id number] BASIC INJURY INFORMATION: Level of activation: Category 2 Trauma Mode of transport: Advance life support Mechanism of injury: Fall from ground level Complicating features: Not applicable Protective measures: Not applicable Date of Injury: 07/29/2023 Time of Injury: morning Patient origin: Transfer from outside facility HISTORY OF PRESENT INJURY: Carly Marcelino is a 83 year old female brought in as transfer from [facility] following a fall while walking into [employer]rian[employer] this morning. She was found at the [...] OSH following a fall this morning at [employer]. Workup revealed SDH, skin tear to L [...] Oxycodone 2.5g q4h prn moderate-severe pain - CAN FILLING MACHINE OPERATOR consult for cog eval Cardiovascular: no current [...] the Brain Injury Guidelines: Results of an [place] Association for the Surgery of Trauma prospective [...] management of case or test interpretation with mental health consultant neurosurgery with findings of SDH. Nahid Molina MD [facility] Work Phone: [phone] 501-760105-19-2024 History and physical note* Nahid Molina MD - 07/29/2023 1:39 PM EDT Images from the original note were not included. [facility] Department of Surgery Division of Trauma Surgery, Acute Care Surgery, Critical Care, and Gregory TRAUMA SURGERY HISTORY AND PHYSICAL Carly Marcelino [id number] BASIC INJURY INFORMATION: Level of activation: Category 2 Trauma Mode of transport: Advance life support Mechanism of injury: Fall from ground level Complicating features: Not applicable Protective measures: Not applicable Date of Injury: 07/29/2023 Time of Injury: morning Patient origin: Transfer from outside facility HISTORY OF PRESENT INJURY: Carly Marcelino is a 83 year old female brought in as transfer from [facility] following a fall while walking into zoroastrianism this morning. She was found at the [...] OSH following a fall this morning at [employer]. Workup revealed SDH, skin tear to L [...] Oxycodone 2.5g q4h prn moderate-severe pain - CAN FILLING MACHINE OPERATOR consult for cog eval Cardiovascular: no current [...] Center. J Trauma Acute Care Surg. Vol 84)3, 107-006. B. Mike et al. (2021). Validating the Brain Injury Guidelines: Results of an [place] Association for the Surgery of Trauma prospective [...] management of case or test interpretation with mental health consultant neurosurgery with findings of SDH. Nahid Molina MD documented in this [id number] Emergency department Triage note* Carlie Jamison RN - 07/29/2023 1:38 PM EDT Prehospital Medications: 50 mcg fentanyl [id number] Emergency department Triage note* Carlie Jamison RN - 07/29/2023 1:38 PM EDT Mechanical fall walking into zoroastrianism today, head lac with subdural hematoma [id number] Physician Emergency department Note* Janny Ellison MD - 07/29/2023 1:35 PM EDT Fall [...] as documented in the resident's note. JANNY IGLSEIAS MD [employer] Work Phone: [phone] Ashley requesting social work referral to help with home medications. Ambreen from social work contacted- setting up para-medicine referral[facility] Hospital Discharge instructions Patient Education 07/13/2023 [...] Consider working with a physical therapist or computer technology trainer who can develop an exercise plan to help you gain muscle strength. General instructions Take dqvn-ntf-egmorgg and prescription medicines only as told by [...] provider. Document Revised: 01/29/2022 Document Reviewed: 01/29/2022 [employer] Patient Education 2022 [employer] Follow Up Care 07/13/2023 17:30:35 With:HARDEEP MCKENZIE Address: [facility] [address], [address] [address]- [facility] (1) When:07/16/2023 Comments:Our health social work professor will contact you for a home visiting nurse. Make sure to follow-up with your primary doctor as needed. Return to the emergency room if you develop any symptoms or concerns. [facility]05-03-2024 Evaluation + Plan noteExtracted from: Title:ED NoteAuthor:Hank Beard DODate:07/13/23 Weakness (R53.1: Weakness) Orders: Basic Metabolic Panel CBC w/ Auto Diff eGFR Troponin UA with Cult Rflx Addendum by Reshma Ramirez M.D. on July 14, 2023 01:18:38 EDT The care of the patient was transitioned to me upon shift change to follow-up with blood [...] She denies any complaint to me. The p atsangita's brother feel comfortable with patient going home and he will make sure that she takes the medication as she is supposed to. I offered to the patient and her brother for the health social work professor to call her tomorrow to see if they can arrange home visiting nurse for evaluation of her medication and education. They both felt comfortable with the idea of getting a home visiting nurse for educationfor her meds and they feel comfortable that patient go home. Future Scheduled Tests Laboratory* Basic Metabolic Panel 07/18/23 [facility]05-03-2024 [facility]Fisher [facility] Hospital Of BaltimoreComment on above:Result Comment: Electronically Signed By: Lima ROSAS CNP\.br\Date and Time Signed: 07/12/23 11:26 EDT\.br\Electronically Co-Signed By: Mickie Falcon MD\.br\Date and Time Co-Signed: 07/13/23 11:09 [id number] Hospital Discharge instructions Patient Education 07/11/2023 13:43:41 Hyponatremia, Daih-eq-Klgj Hyponatremia Hyponatremia is when the amount of [...] symptoms. Follow these instructions at home: Take ukbr-ues-jxgzlad and prescription medicines only as told by [...] provider. Document Revised: 09/06/2021 Document Reviewed: 09/06/2021 [employer] Patient Education 2022 [employer]. Follow Up Care 07/08/2023 21:50:17 With:HARDEEP MCKENZIE DO, FAM Address: [facility] [address], [address] [place] [address]- When:3 to 5 days Comments:Get BMP in 1 weekCall for followup appointment [facility]04-30-2024 Evaluation + Plan noteExtracted from: Title:Hyponatremia Progress NoteAuthor:Pina Mendez CNP.Date:07/10/23 Impression and Plan 1. Hyponatremia likely due [...] and solute intake. NS 250 mL IV bolusgiven. FR 1.5L. -TSH unremarkable -Serial sodium levels are ordered and parameters are given on when to call us. Repeat urine osmo & urine Na. 2. HTN -Will increase Losartan to 50 mg daily. Extracted from:Title:APSO NoteAuthor:Lima ROSAS CNP LDate:07/10/23 1. Hyponatremia (E87.1: Hypo-osmolality and hyponatremia) Acute [...] artery disease) (I25.10: Atherosclerotic heart disease of [place] coronary artery without angina pectoris) -Reports a hx NV 2 years ago -ASA 81 mg daily, beta rudi 6. Seizure disorder (R56.9: Unspecified convulsions) [facility] 7. Anxiety (F41.9: Anxiety disorder, unspecified) - [...] 07/10/23 21:00:00 EDT, 07/10/23 11:38:00 EDT Extracted from:Title:Nephrology consultation noteAuthor:Celi VICTOR, AuraDate: 07/09/23 Impression and Plan 1. Hyponatremia: Likely due [...] -increase losartan if BP above goal. Extracted from:Title:Admission H & PAuthor:Melina VICTOR, KristenDate:07/09/23 1. Hyponatremia (E87.1: Hypo -osmolality and hyponatremia) [...] artery disease) (I25.10: Atherosclerotic heart disease of [place] coronary artery without angina pectoris) Reports a hx NV 2 years ago 6. Seizure disorder (R56.9: Unspecified convulsions) [facility]. Anxiety (F41.9: Anxiety disorder, unspecified) Under considerable stress since Apr (see HPI) Not sleeping well. Responded to Ativan given in ED. Extracted from:Title:ED NoteAuthor:Benton Sutherland DO.Date:07/08/23 Acute URI (J06.9: Acute uppe r respiratory infection, unspecified) Hyponatremia (E87.1: Hypo-osmolality and hyponatremia) Orders: albuterol, 180 mcg, 2 puff(s), Aerosol, Inhalation, q6hr PRN Shortness of breath or wheezing, STAT,Start date 07/08/23 23:23:00 EDT, teach and treat [...] Saturation PT & PTT Rapid COVID Antigen ([facility]) Saline Lock Insert Troponin 0 Hr. XR Chest Single View Future Scheduled Tests Laboratory* Basic Metabolic Panel 07/18/23 [facility]04-29-2024 NoteAvita Health System Bucyrus HospitalComment on above:Result Comment: Electronically Signed By: Melina VICTOR, Alejandra\.chepe\Date and Time Signed: 07/09/23 03:31 [id number] Instructions* Patient Instructions * Delfin Dow APRN.CNP - 07/06/2023 1:56 PM EDT Continue Aspirin. 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 Will continue to monitor while patient is on Aspirin. Continue Pravastatin for secondary stroke prevention and LDL goal below 70. Continue monitoring blood pressure for goal below 130/80. MRI brain in 3-6 months (end of July). Follow up to review results. documented in this encounterMercy [facility]04-26-[facility] History of Present illness Narrative* Delfin Dow APRN.CNP - 07/06/2023 1:05 PM EDT [facility] Established Visit Consultation is requested by: No referring provider defined for this encounter. PCP: Hardeep Mckenzie [address] [place] [address] [address] [place] [address] CEREBROVASCULAR HISTORY Carly Marcelino is a 82 year old right-handed female. Stroke Event Information Admitted to [facility]23-05/07/23 The patient was transferred from an outside hospital to the [facility] with right frontal cortical SAH (eliquis [...] Aspirin Request images from ED [facility] at [facility] Reports she has been having anxiety [...] Bilateral shoulder injury before 1999 working in [employer] home Cataract of left eye Cataracts, bilateral [...] TONSILLECTOMY HX 2003 TRABECULOPLASTY BY LASER SURGERY 2002 correction of arterial hemmorhage left eye FAMILY [...] 10 mg by mouth once daily. omega 5-iyp-gry-fish oil (FISH OIL) 100-160-1,000 mg cap Take by mouth. Walker misc front wheeled walker dx left knee hematoma, Print Requisition, Compound multivitamin (MULTIPLE VITAMINS ORAL) Refill(s) 0 baclofen (LIORESAL) 10 mg tablet Baclofen Baclofen Active 5 MG Oral Daily at bedtime August 01, 20173:16pm 08-01-2017 [facility] ([id number]) cetirizine 10 mg ODT Cetirizine Cetirizine Active 10 MG Oral Daily August 01, 2017 3:16pm [id number] [facility] ([id number]) Cholecalciferol, Vitamin D3, (VITAMIN D-3) 2,000 unit [...] vibration. Coordination: Rapid alternating movements symmetric bilaterally. Xufmrz-my-usni, ujwj-se-ixjj without dysmetria bilaterally. Reflexes: 2+/4 reflexes symmetric [...] which included preparing to see the patient, rvbw-te-fcxm patient care, completing clinical documentation, obtaining and/or reviewing separately obtained history, performing a medically appropriate examination, counseling and educating the patient/family/caregiver, ordering medications, tests, or procedures, communicating with other HCPs (not separately reported), independently interpreting results (not separately reported), communicating results to the patient/family/caregiver, and care coordination (not separately reported) SIGNATURE Delfin Dow APRN.MANUFACTURERS REPRESENTATIVE CC No referring provider defined for this encounter. Hardeep Mckenzie [address] [place] [address] [address] [place] [address] documented in this encounterMercy Health [facility]iff[facility]04-26-2024 NoteHNO ID: [id number] Author: DELFIN DOW APRN.CNP Service: ? Author Type: Nurse Practitioner Type: Progress Notes Filed: 07/06/2023 15:06 Note Text: [facility] Established Visit Consultation is requested by: No referring provider defined for this encounter. PCP: Hardeep Mckenzie [address] [place] [id number] CEREBROVASCULAR HISTORY Carly Marcelino is a 82 year old right-handed female. Stroke Event Information Admitted to [facility] 05/03/23-05/07/23 The patient was transferred from an outside hospital to the [facility] with right frontal cortical SAH (eliquis [...] Aspirin Request images from ED visits at [facility] Reports she has been having anxiety [...] Bilateral shoulder injury before 1999 working in [employer] home Cataract of left eye Cataracts, bilateral [...] as needed. ALPRAZolam (X (more content not included)...[facility]04-19-[facility] Instructions* Patient Instructions* Christopher Casarez APRN.CNP - 06/29/2023 11:23 AM EDT Stroke Prevention: Aspirin daily lifelong Work with your PCP to optimize blood vessel health Cholesterol: LDL < 100 or if diabetic, < 70. Blood pressure: <140/<90 or if diabetic, < 130/<80. Blood glucose (3 month average): A1C < 5.7% or if diabetic, < 7.0%. Stay tobacco-free Follow a mediterranean diet: (https://my.[facility].org/health/articles/36881-dtngupvwwfkdt-pspw) Lots of vegetables, fruit, beans, lentils and [...] neck stiffness and vomiting. documented in this encounterMercy Health Tiffin [facility]04-19-2024 NoteHNO ID: [id number] Author: CHRISTOPHER CASAREZ APRN.CNP Service: ? Author Type: Nurse Practitioner Type: Progress Notes Filed: 07/17/2023 15:22 Note Text: [facility] Established Visit Carly Marcelino [facility]#: [id number] Date of Service: 06/29/2023 Primary Care Provider: [...] seizure disorder (forceps delivery at ), HTN, 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 on clopidogrel, BLE DVT [...] (Hcc) Primary Hypertension Coronary Artery Disease Involving [place] Coronary Artery of [place] 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 Hyperlipidemia Sciatica [...] TONSILLECTOMY HX 2003 TRABECULOPLASTY BY LASER SURGERY 2002 correction of arterial hemmorhage left eye Allergies: Hydantoins, Phenytoin, Adhesive Tape (Rosins), Carbamazepine, Divalproex Sodium, Dule (more content not included)...[facility]04-19-20[facility] History of Present illness Narrative* Christopher Casarez APRN.MANUFACTURERS REPRESENTATIVE - 06/29/2023 10:37 AM EDT [facility] Established Visit Carly Marcelino [facility]#: [id number] Date of Service: 06/29/2023 Primary Care Provider: [...] seizure disorder (forceps delivery at ), HTN, 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 on clopidogrel, BLE DVT [...] (Hcc) Primary Hypertension Coronary Artery Disease Involving [place] Coronary Artery of [place] 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 Hyperlipidemia Sciatica [...] COLONSCOPY NOT HIGH RISK 2010 TONSILLECTOMY HX 2002 TRABECULOPLASTY BY LASER SURGERY 2002 correction of arterial hemmorhage left eye Allergies: [...] 10 mg by mouth once daily. omega 6-ltt-xvp-fish oil (FISH OIL) 100-160-1,000 mg cap Take by mouth. Walker misc front wheeled walker dx left knee hematoma, Print Requisition, Compound multivitamin (MULTIPLE VITAMINS ORAL) Refill(s) 0 baclofen (LIORESAL) 10 mg tablet Baclofen Baclofen Active 5 MG Oral Daily at bedtime August 01, 20173:16pm 08-01-2017 [facility] ([id number]) cetirizine 10 mg ODT Cetirizine Cetirizine Active 10 MG Oral Daily August 01, 2017 3:16pm [id number] Health System [facility] Hospital [facility]tr ([id number]) Cholecalciferol, Vitamin D3, (VITAMIN D-3) 2,000 unit [...] tremor. Sensation: Grossly intact light touch. Coordination: Iixjnk-bd-ioxj without dysmetria bilaterally. Gait: Ambulates into the [...] seizure disorder (forceps delivery at ), HTN, 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 on clopidogrel, BLE DVT [...] ASA 81 per [facility]. Imaging [...] which included preparing to see the patient, zmco-dx-ntcc patient care, completing clinical documentation, obtaining and/or reviewing separately obtained history, performing a medically appropriate examination, counseling and educating the pat ient/family/caregiver, ordering medications, tests, or procedures, communicating with other HCPs (not separately reported), independently interpreting results (not separately reported), communicatingresults to the patient/family/caregiver, and care coordination (not separately reported). SIGNATURE Christopher Casarez APRN.CNP June 29, 2023 documented in this encounterMercy Health [facility]iffin [facility]04-15-2024 Hospital Discharge instructions Follow Up Care 06/25/2023 12:40:30 With:HARDEEP MCKENZIE Address: [address] [place], [place] [id number] Business (1) When:Within 3 Day(s) [facility]04-15-2024 Evaluation + Plan noteExtracted from: Title:ED NoteAuthor:Chirag ZHANG HankDate:06/25/23 Shakiness (R25.1: Tremor, un specified) Orders: Basic Metabolic Panel ECG 12 Lead Adult eGFR Extra Blue Tube Extra Lav Tube Extra SST Tube UA with Cult Rflx [facility]04-11-2024 Hospital Discharge instructions Patient Education 06/21/2023 17:18:40 [...] friends and loved ones. General instructions Take wxli-xxy-uwsvtsw and prescription medicines only as told by [...] the National Suicide Prevention Lifeline at or 453. This is open 24 hours a day. Text the Crisis Text Line at 149578. Summary Prolonged grief is a severe type [...] provider. Document Revised: 10/17/2021 Document Reviewed: 10/17/2021 [employer] Patient Education 2022 [employer]. Follow Up Care 06/21/2023 12:08:40 With:HARDEEP MCKENZIE Address: [address], [facility] [address] [place] [address]- Business (1) When:06/24/2023 17:12:24 [facility]04-11-2024 Miscellaneous Notes* Telephone Encounter - Keisha Eller [...] repeat EEG to further assess. Keisha Eller APRN.CNP * Telephone Encounter - Pedro Alcala RN [...] along with separate encounter from Neurology. Pedro Alcala RN * Telephone Encounter - Jalyn Unger - 06/20/2023 8:57 AM EDT nurse Cheri w/ Dr. Mckenzie office, PCP says pt's Mouth, legs hurt, overall feels lousy; has high blood pressure; please call back [phone] opt 4. * Telephone Encounter - Kayla Gunter - 06/19/2023 3:29 PM EDT Patient has been informed by her transport conductor that Keppra has caused many problems. Patient cannot continue Keppra. Please call her [phone] (home). See 06/18/23 encounter. * Telephone Encounter - Heydi Mirza - 06/18/2023 2:57 PM EDT Medication Concern Person Calling Carly Marcelino (home) Name of medication seizure meds Concern with medication blood pressure goes high after taking meds Patient of Dr. lilly documented in this encounterMercy Health [facility]04-[facility]24 Hospital Discharge instructions Follow Up Care 06/18/2023 12:51:54 With:HARDEEP MCKENZIE Address: [facility] [address] [address] [facility] (1) When:06/21/2023 14:44:47 Comments:Follow-up with your primary care provider in 3 to 5 days. If symptoms worsen, do not improve, or new symptoms arise please report back to emergency department for further evaluation. [facility]04-08-2024 Evaluation + Plan noteExtracted from: Title:ED NoteAuthor:Dyllan DEL RIO, Luis E Aggarwal.Date:06/18/23 HTN (hypertension) (I10: Ess ential (primary) hypertension) Orders: Basic Metabolic Panel CBC w/ Auto Diff CT Head or Brain w/o Contrast ED Cardiac Monitoring eGFR Magnesium Level PT & PTT Troponin 0 Hr. Troponin 3 Hr. Troponin 6 Hr. Troponin 9 Hr. 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 Patient states her PCP is out of the office and MANUFACTURERS REPRESENTATIVE is not available. Advised to go to [...] Marcelino, 1940). Yes Number to return call [phone] Reason for Call: Symptoms Call: Symptoms: patient states her blood pressure is high, 220/190 this was yesterday, patient states, and patient states she doesn't take her medication everyday, she states her eyes felt funny, but she couldn't see good at [employer]. Patient states the keppra makes her blood pressure spike, patient states her PCP is not in and the MANUFACTURERS REPRESENTATIVE that is covering she can't get in [...] none Pharmacy: [facility] Thank you calling [facility] [place]. You will receive a return call within 48hours ( or 2 business days if close to the weekend). If you feel that this is an urgent issue and needs immediate attention, it is recommended that you contact your primary care provider office or proceed to your nearest Urgent Care Center of Emergency Room ED for evaluation/treatment. documented in this encounterMercy Health [facility]in Hospital04-07-2024 Hospital Discharge instructions Patient Education 06/17/2023 17:51:23 [...] follow-up visits. This is important. Medicines Take wswj-eeu-imifake and prescription medicines only as told by [...] provider. Document Revised: 01/03/2022 Document Reviewed: 01/03/2022 [employer] Patient Education 2022 [employer]. Follow Up Care 06/17/2023 15:59:13 With:HARDEEP MCKENZIE Address: [facility] [address] [place] [address] Business (1) When:06/20/2023 17:24:26 Comments:Make sure to check the blood pressure at home as discussed and with the numbers follow-up with yourprimary doctor for blood pressure medication adjustment. Return to the emergency room if your headache gets worse, you develop chest pain, your blood pressure elevates again or any new symptoms. [facility]04-07-2024 Evaluation + Plan noteExtracted from: Title:ED NoteAuthor:Reshma Ramirez M.D. HDate:06/17/23 1. HTN (I10: Essential (prim zaki) hypertension) Orders: ED Cardiac Monitoring Keppra Lvl Oxygen Saturation Oxygen Therapy Saline Lock Insert Troponin 9 Hr. UA with Cult Rflx XR Chest Single View Diagnostic Tests Pending * UA with Cult Rflx 06/17/23 * Keppra Lvl 06/17/23 [facility]04-07-2024 NoteHNO ID: [id number] Author: NOÉ LILLY MD Service: ? Author Type: Physician Type: Progress Notes Filed: 06/17/2023 14:07 Note Text: [facility] [place] [facility] Patient Name: Carly MORALES Date of : 1940 INITIAL EPILEPSY CLINIC NOTE 06/15/2023 10:00 AM CHIEF COMPLAINT: New Patient, Seizures, and Epilepsy HISTORY OF PRESENT ILLNESS Ms. Marcelino is a 82 year old right-handed female seen in [facility] for initial consultation. [...] right frontal SAH. She was transferred to [facility] for further management. No clear etiology was [...] - Seizure risk factors: Brain Tumor Unanswered SALES ORDER COORDINATOR Infections Unanswered Developmental Delay Unanswered Family history of seizures Unanswered Febrile Seizure Unanswered Complications Unanswered Stroke Unanswered Traumatic Brain Injury Unanswered Previous Epilepsy Evaluations BEM Read Period: 05/06/2023 04:44:00 AM - 05/07/2023 09:45:00 AM Interictal: Continuous Slow, Generalized, Maximum, right Intermittent Rhythmic Slow, Gene (more content not included)...[facility]04-07-[facility] History of Present illness Narrative* Noé Lilly MD - 06/17/2023 1:50 PM EDT [facility] [place] [facility] Patient Name: Carly MORALES Date of : 1940 INITIAL EPILEPSY CLINIC NOTE 06/15/2023 10:00 AM CHIEF COMPLAINT: New Patient, Seizures, and Epilepsy HISTORY OF PRESENT ILLNESS Ms. Marcelino is a 82 year old right-handed female seen in [facility] for initial consultation. [...] right frontal SAH. She was transferred to [facility] for further management. No clear etiology was [...] - Seizure risk factors: Brain Tumor Unanswered SALES ORDER COORDINATOR Infections Unanswered Developmental Delay Unanswered Family history [...] 10 mg by mouth once daily. omega 2-xki-ido-fish oil (FISH OIL) 100-160-1,000 mg cap Take by mouth. Walker misc front wheeled walker dx left knee hematoma, Print Requisition, Compound multivitamin (MULTIPLE VITAMINS ORAL) Refill(s) 0 baclofen (LIORESAL) 10 mg tablet Baclofen Baclofen Active 5 MG Oral Daily at bedtime August 01, 20173:16pm 08-01-2017 [facility] ([id number]) cetirizine 10 mg ODT Cetirizine Cetirizine Active 10 MG Oral Daily August 01, 2017 3:16pm [id number] ([id number]) Cholecalciferol, Vitamin D3, (VITAMIN D-3) 2,000 unit [...] Bilateral shoulder injury before 1999 working in [employer] home Cataract of left eye Cataracts, bilateral HTN (hypertension) Hyperlipidemia Lung nodule 06/2015 Macular degeneration DESTINY (obstructive sleep apnea) s/p pharyngoplasty no cpap Pseudophakia of right eye PAST SURGICAL HISTORY Procedure Laterality Date ARTHRP KNE CONDYLE&PLATU MEDIAL&LAT COMPARTMENTS 2003 bilateral kneee EXCISION CHE NEUROMA EACH x3 PAST SURGICAL HISTORY OF 1968,93 breast bx [...] TONSILLECTOMY HX 2003 TRABECULOPLASTY BY LASER SURGERY 2002 correction of arterial hemmorhage left eye FAMILY HISTORY Problem Relation Age of Onset Breast Cancer Mother with mets Cataract Mother Cancer Father prostate with bone mets Cataract Father Cancer Brother colon; survivor x 10 yrs thus far. doing well Cataract Brother No Ocular Disease No Family History nothing known of SOCIAL HISTORY: -Lives in [place], [place] -Patient lives alone? -Vocation: -Education: -Cigarette, [...] which included: preparing to see the patient ltgs-zd-zing patient care completing clinical documentation obtaining and/or reviewing separately obtained history performing a medically appropriate examination ordering medications, tests, or procedures counseling and educating the patient/family/caregiver Noé Lilly MD cc: Primary Care Physician: Hardeep Mckenzie DO [address] [place] [id number] Referring: Patient: Ms. 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 Avoid caffeine, alcohol, and certain yzgk-dbk-jiweneh cold medicines. These may make you feel worse. Ask your pharmacist which medicines to avoid. General instructions Take trek-iyj-fnphbpq and prescription medicines only as told by [...] Depression Association of Frank (ADAA): www.adaa.org National [place] on Mental Illness (LANA): www.lana.org Contact a [...] department or: Call your local emergency services (911 in the U.S.). Call a suicide crisis helpline, such as the National Suicide Prevention Lifeline at or 960 in the U.S. This is open 24 hours a day in the U.[place]. Text the Crisis Text Line at 537174 (in the [place].S.). Summary Taking steps to [...] provider. Document Revised: 09/21/2021 Document Reviewed: 06/19/2021 [employer] Patient Education 2022 [employer] 06/16/2023 08:48:54 Prolonged Grief Prolonged Grief [...] friends and loved ones. General instructions Take fiuu-awq-yzwakzx and prescription medicines only as told by [...] the National Suicide Prevention Lifeline at or 240. This is open 24 hours a day. Text the Crisis Text Line at 734884. Summary Prolonged grief is a severe type [...] provider. Document Revised: 10/17/2021 Document Reviewed: 10/17/2021 [employer] Patient Education 2022 [employer]. Follow Up Care 06/16/2023 04:18:39 With:[facility] Address:Unknown When:06/19/2023 08:48:14 Comments:Call to establish grief counseling With:[employer] [facility] Address: [address] [place] [address] Business (1) When:06/19/2023 08:47:59 Comments:Call to establish grief counseling With:HARDEEP MCKENZIE Address: [address] [address]- Business (1) When:06/19/2023 08:47:40 Comments:Call the office of [...] legs, or any new or worsening symptoms. [facility]04-05-2024 Instructions* Patient Instructions* Noé Lilly MD - 06/15/2023 10:36 AM EDT You can continue taking Keppra 500 mg 1 tab twice a day for a month and if side effects continue tooccur, stop taking the keppra immediate release and start taking Keppra extended release 500 mg at bedtime Ok to continue taking Gabapentin as previously prescribed documented in this encounterMercy Health Tiffin Hospital04-04-2024 Evaluation + Plan note Extracted from:Title:ED NoteAuthor:oD Montez DO ADate:06/14/23 Chills (R68.83: Chills (with out fever)) Orders: Basic Metabolic Panel CBC w/ Auto Diff eGFR Extra Blue Tube Extra SST Tube Influenza A&B Ag Rapid COVID Antigen ([facility]) UA with Cult Rflx [facility]04-04-2024 Hospital Discharge instructions Patient Education 06/14/2023 07:59:04 [...] including vitamins, herbs, eye drops, creams, and pnzv-jrj-xlalthc medicines. Any problems you or family members [...] if you need an emergent specialist or mental health consultant that is not available at the medical center you are at. You need to have more tests. A biomedical technician may be consulted if needed. Get help [...] provider. Document Revised: 11/09/2021 Document Reviewed: 2021 [employer] Patient Education 2022 [employer]. Follow Up Care 06/14/2023 05:13:36 With:HARDEEP MCKENZIE Address: [address] [place] [address] Business (1) When:06/17/2023 06:56:13 Comments:Please follow-up with your primary care doctor for further evaluation and management. Return to the for any new or worsening symptoms [facility]03-29-2024 Hospital Discharge instructions Patient Education 06/08/2023 19:39:31 Weakness, Hzbn-ny-Lzuu Weakness Weakness is a lack of strength. [...] about working with a physical therapist or computer technology trainer to help you get stronger. General instructions Take zyyj-qov-zhrimpt and prescription medicines only as told by [...] provider. Document Revised: 01/29/2022 Document Reviewed: 01/29/2022 [employer] Patient Education 2022 [employer]. Follow Up Care 06/08/2023 14:11:37 With:HARDEEP MCKENZIE DO [facility] Address: [facility] [address] [address]- When:06/11/2023 [facility]03-19-2024 Miscellaneous Notes* Telephone Encounter - Dinah Lopez RN - 05/29/2023 1:28 PM EDT Spoke with pt, per [facility] ct scan is fine, blood is resolve, Has no issue with pt flying. Pt to schedule f/u when returns from [place]. Pt verbalized understanding. * Telephone Encounter - Rola Park - 05/29/2023 11:58 AM EDT Patient calling to discuss CT results. Please call [phone] * Telephone Encounter - Sandy Ho - 05/28/2023 5:07 PM EDT Images from the original note were not included. OSH imaging/records received from [facility]: May 28, 2023 -05.28.23 CT Imaging Report [...] Marcelino, 1940). Yes Number to return call [phone] Reason for Call: Results: Results Calling office requesting result of CT scan test, completed on 05/28/23. Please call patient back at [phone] Patient missed follow up appt scheduled for today 05/28/23.Please call pt to discuss results and whether or not patient is able to fly. . documented in this encounterMercy Health Tiffin Hospital03-15-2024 Instructions* Patient Instructions* Tiff Draper, [place] - 05/25/2023 2:05 PM EDT Daytime eye drops: use 2-3 times daily in both eyes (especially the left) Refresh Systane Genteal Theratears Ointment for bedtime use in the left eye: Refresh PM Systane Nighttime Gel documented in this encounterMercy Health Tiffin Hospital03-15-2024 NoteHNO ID: [id number] Author: TIFF DRAPER OD Service: ? Author Type: INDUSTRIAL MAINTENANCE TECH Type: Progress Notes Filed: 05/25/2023 16:36 Note [...] Tiff Draper, OD May 25, 2023 2:04 [facility]03-15-2024 History of Present illness Narrative* Tiff Draper, [...] Tiff Draper, [place] May 25, 2023 2:04 PM documented in this encounterMercy Health Tiffin Hospital02-28-2024 NoteHNO ID: [id number] Author: JESSE TREVIZO, CARLOS Service: ? Author Type: Registered Nurse Type: Progress Notes Filed: 05/09/2023 14:22 Note Text: Called daughter Hebert who will be taking pt to appts to discuss changing CT scan and f/up with Kerry to 05/27 prior to flying to [place]. Also reviewed with Christopher Casarez NP and she agreed to check CT scan prior to traveling to evaluate for blood resolution. Hebert will assist pt to get on My Chart activation code sent to email. Ct scan to be done at [place] in am on 05/27 followed by VV [...] for questions/concerns. She appreciated f/up. Jesse Trevizo RNMercy Health Lorain Hospital02-28-2024 History of Present illness Narrative* Jesse Trevizo RN - 05/09/2023 2:18 PM EST Called daughter Hebert who will be taking pt to appts to discuss changing CT scan and f/up with Kerry to 05/27 prior to flying to [place]. Also reviewed with Christopher Casarez NP and she agreed to check CT scan prior to traveling to evaluate for blood resolution. Hebert will assist pt to get on My Chart activation code sent to email. Ct scan to be done at [place] in am on 05/27 followed by VV [...] Trevizo RN - 05/09/2023 12:03 PM EST Deliverer Outside Endovascular Transitional Care Management Phone Call to [...] CT 2 MAIN QB (I-STAT) Lise Q [facility] [phone] 06/08/2023 9:00 AM MERARI CORRALES S [facility] [phone] 06/08/2023 10:30 AM MONICA BOSWELL S [facility] [phone] Verification of appointments/change appointment- May need to [...] no known cause Jesse Trevizo RN Endovascular Deliverer Outside, [facility] May 09, 2023 12:11 PM documented in this encounterMercy Health Tiffin Hospital02-28-2024 NoteHNO ID: [id number] Author: JESSE TREVIZO RN Service: ? Author Type: Registered Nurse Type: Progress Notes Filed: 05/09/2023 12:11 Note Text: Deliverer Outside Endovascular Transitional Care Management Phone Call to [...] 8:[address] 2 MAIN QB (I-STAT) [facility] [phone] 06/08/2023 9:00 AM MERARI CORRALES Ar S [facility] [phone] 06/08/2023 10:30 AM MONICA BOSWELL Ar S [facility] [phone] Verification of appointments/change appointment- May need to [...] no known cause Jesse Trevizo RN Endovascular Deliverer Outside, [facility] May 09, 2023 12:11 [facility]02-28-2024 NotePatient Outreach (NSEVMN) CARLY MARCELINO ([id number]) 1940 F Date Time Provider Department 05/09/23 [facility] During your visit today, we recorded the following information about you: Jesse Trevizo RN 05/09/2023 12:11 PM Signed Deliverer Outside Endovascular Transitional Care Management Phone Call to [...] CT 2 MAIN QB (I-STAT) Lise Q [facility] [phone] 06/08/2023 9:00 AM MERARI CORRALES S [facility] [phone] 06/08/2023 10:30 AM MONICA BOSWELL Ar S [facility] [phone] Verification of appointments/change appointment- May need to rearrange f/up CT scan and appt with [facility], pt has tickets to fly [place] on 05/30 and wants to know if [...] no known cause Jesse Trevizo RN Endovascular Deliverer Outside, [facility]brovascular Center May 09, 2023 12:11 PM Jesse Trevizo RN 05/09/2023 2:22 PM Signed Called daughter Hebert who will be taking pt to appts to discuss changing CT scan and f/up with Kerry to 05/27 prior to flying to [place]. Also reviewed with Christopher Casarez NP and she agreed to check CT scan prior to traveling to evaluate for blood resolution. Hebert will assist pt to get on My Chart activation code sent to email. Ct scan to be done at [place] in am on 05/27 followed by VV [...] RN - Fully Assessed Reason for Visit: Deliverer Outside - Hospital Follow Up [3601] Cmt: Endovascular LENY Prescriptions as of 05/09/2023 - acetaminophen (TYLENOL) 325 mg tablet 2 tablets by ORAL/FEEDING TUBE route every 4 hours as needed for pain. - aspirin 81 mg chewabl (more content not included)...[facility] 05-07-2023 NoteHNO ID: [id number] Author: LJ FENTON ? Service: Pharmacy Author Type: Ornamental Iron Worker Type: Plan of Care Filed: 05/07/2023 13:48 Note Text: PHARMACY BEDSIDE DELIVERY SERVICE Patient Name: Carly Marcelino The marked outpatient medications were Filled at: [facility] and delivered to the patient's [...] OiL 100-160-1,000 mg Cap Generic drug: omega 0-dyx-kgn-fish oil losartan 100 mg tablet Commonly known [...] unit) Cap Generic drug: Cholecalciferol (Vitamin D3) [facility] You might also be taking other medications not listed above. If you have questions about any of your other medications, talk to the person who prescribed them or your Primary Care Provider. STOP taking these medications Vitamin E (dl, acetate) 1,000 unit capsule Lj Fenton PAGER: [phone] May 07, 2023 1:47 [facility]02-25-2024 NoteHNO ID: [id number] Author: GAVINO SANDHU MD Service: Neurosurgery Author Type: Resident Type: Progress Notes Filed: 05/06/2023 10:07 Note Text: Neurosurgery Inpatient Progress Note Interval HPI: No acute events overnight Objective: 05/06/23 0300 05/06/23 0400 05/06/23 0500 05/06/23 0600 BP: 116/56 124/59 121/58 114/57 Pulse: 70 63 62 60 Resp: Temp: TempSrc: SpO2: 96% 95% 95% 95% [...] seizure disorder (forceps delivery at ), HTN, CAD/NV s/p PCI/Stent 12/01 on MADHAVI, BLE DVT [...] Dr. Toni Sandhu MD Neurosurgery PGY2 Pager: [phone] May 06, 2023 10:05 AM Please page [phone] after 6pm and weekendGeorgetown Behavioral Hospital02-24-2024 NoteHNO ID: [id number] Author: GAVINO SANDHU MD Service: Neurosurgery Author Type: Resident Type: Progress Notes Filed: 05/05/2023 11:16 Note Text: Neurosurgery Inpatient Progress Note Interval HPI: No acute events overnight. 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 - MRI Brain and C spine, MRA - no evidence of etiology of SAH - Hold AC/AP - restart plan PBD10 with [facility] after - Stroke c/s, appreciate recommendations - SCDs, hold DVT ppx Staff: Dr. Toni Sandhu MD Neurosurgery PGY2 Pager: [phone] May 05, 2023 11:16 AM Please page [phone] after 6pm and weekendGeorgetown Behavioral Hospital02-23-2024 NoteHNO ID: [id number] Author: MJ CABALLERO DO Service: Neurology ICU [...] for monitoring any persistent or new transient changes.[facility]02-23-2024 NoteHNO ID: [id number] Author: BRENDAN PARIKH RT(R) Service: Radiology Author [...] PATIENT PRESENTS WITH AN IMPLANTABLE OR ATTACHED MEDICAL ASSISTANT FLOAT: No RADIOLOGY DEPARTMENT: MR; Exam(s) Completed: Head: Routine Brain [place] MRA Spine: Cervical spine PERIPHERAL IV DATA: Inpatient: see LDA documentation SIGNED BY: RT Kannan(R) May 04, 2023 12:05 [facility]02-23-2024 NoteHNO ID: [id number] Author: SARKIS ORONA DO Service: Neurology ICU [...] (HCC) Primary hypertension Coronary artery disease involving [place] coronary artery of [place] heart without angina pectoris Mixed hyperlipidemia Sciatica of right side Uncomplicated asthma IVANA (iron deficiency anemia) Resolved Problems: * No resolved hospital problems. * PLAN Neur checks MRI/MRA head and neck Keep sbp<160 Pain control D/w Stroke and nsgy, SDU transfer Off eliquis s/p feiba reversal Please see the documented ibiqah-xf-egfnlw plan in the updated problem list. [facility] Staff Physician note of personal involvement in Care: I was personally involved in the care of this patient. The required my full attention and direct personal management. 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 Follows with cardiology, per outpatient note patient was recommended to be on indefinite clopidogrel. Last [facility] 11/2021 noting significant calcification in LCx and LAD. - BB: metoprolol tartrate 12.5 BID - Statin: pravastatin (previous intolerance to high intensity statin) - AP: clopidogrel - lipid panel LDL-c 59 - Hgb A1c 4.9% Plan: - holding clopidogrel - continue metoprolol 12.5 mg BID - pravastatin 40 mg daily, goal LDL-c (more content not included)...[facility]02-23-2024 NoteHNO ID: [id number] Author: RIAZ EVANS MD Service: Neurosurgery Author [...] seizure disorder (forceps delivery at ), HTN, CAD/NV s/p PCI/Stent 12/01 on MADHAVI, BLE DVT [...] Dr. Toni Hart MD Neurosurgery PGY1 Pager: [phone] May 04, 2023 5:31 AM Please page [phone] after 6pm and weekendGeorgetown Behavioral Hospital02-22-2024 NoteHNO ID: [id number] Author: MARV RECINOS MD Service: Neurology ICU [...] to answer. Marv Recinos MD PGY-3 Neurology ResidentMercy Health Lor[facility] Hospital02-22-2024 Evaluation + Plan noteExtracted from:Title:ED NoteAuthor:Stacia Dwyer DODate:05/03/23 Hypertensive emergency (I16. 1: Hypertensive emergency) Stroke-like [...] Once, Stop date 05/03/23 11:17:00 EST, STAT, Startdate 05/03/23 11:17:00 EST, 05/03/23 11:17:00 EST labetalol, [...] 300 mL/hr, Infuse over 10, minute(s), Total Vol(mL): 50 ABO/Rh ABO/Rh History Check Antibody Screen Basic Metabolic Panel Blood Bank ID# CBC w/ Auto Diff Consult to Tele-Neurology CT Head or Brain w/o Contrast eGFR Extra Blue Tube Extra SST Tube Saline Lock Insert Transfer Patient to Troponin 0 Hr. Troponin 3 Hr. UA With Cult Reflex XR Chest Single View [facility]02-22-2024 NoteHNO ID: [id number] Author: ALDO WORRELL APRN.CNP Service: ? Author Type: Nurse Practitioner Type: Progress Notes Filed: 05/03/2023 15:55 Note Text: CRITICAL CARE TRANSPORT MEDICAL CONTROL CONSULT NOTE Patient Name: Carly Marcelino Service Date: May 03, 2023 Referring Facility: [facility] Accepting Facility: [facility] REASON FOR TRANSPORT: Need for neurosurgical [...] home eliquis and plavix who presented to [facility] for evaluation of new onset vision [...] confirmed and read back via telephone with [facility] Transport rail crew member, Kt Mccoy RN SIGNATURE: Aldo Worrell APRN.CNP Acute Care Nurse Practitioner Critical Care TransportMercy Health Lor[facility] Hospital02-22-2024 History of Present illness Narrative* Aldo Worrell APRN.CNP - 05/03/2023 1:46 PM EST Images from the original note were not included. CRITICAL CARE TRANSPORT MEDICAL CONTROL CONSULT NOTE Patient Name: Carly Marcelino Service Date: May 03, 2023 Referring Facility: [facility] Accepting Facility: [facility] REASON FOR TRANSPORT: Need for neurosurgical [...] home eliquis and plavix who presented to [facility] for evaluation of new onset vision [...] read back via telephone with [facility] Transport rail crew member, Kt Mccoy RN SIGNATURE: Aldo Worrell APRN.CNP Acute Care Nurse Practitioner Critical Care Transport documented in this encounterMercy Health Tiffin Hospital02-09-2024 Evaluation + Plan note Extracted from:Title:ED NoteAuthor:Do Montez DO ADate:04/20/23 Headache (R51.9: Headache, u nspecified) Orders: morphine, [...] members in the last couple of weeks inclu ding her son. She is comfortable being discharged home at this time and does not wish to have any other additional medications or stay for any additional evaluation. [facility]02-09-2024 Hospital Discharge instructions Follow Up Care 04/20/2023 05:28:00 With:HARDEEP MCKENZIE Address: [facility] [address] [address] Business (1) When:Within 3 Day(s) [facility]02-05-2024 Evaluation note* Encounter Date Diagnosis Assessment Notes Treatment Notes Treatment Clinical Notes Apr, History of NV (myocardial infarc tion) (ICD-10 - I25.2) Ms Marcelino is an 82 yr old female, previously managed by [facility] (Dr Yates), [facility] significant for CAD s/p PCI to [...] in 6 weeks for BP follow up Apr,Essential (primary) hypertension (ICD-10 - I10) Apr,Hyperlipidemia, unspecified hyperlipidemia type (ICD-10 - E78.5) Apr,History of DVT (deep vein thrombosis) (ICD-10 - Z86.718) [facility] Other 01-31-2024 Evaluation note* Encounter Date Diagnosis Assessment Notes Treatment Notes Treatment Clinical Notes Mar, History of NV (myocardial infarc tion) (ICD-10 - I25.2) [facility] Other 12-04-2023 Evaluation note* Encounter Date Diagnosis Assessment Notes Treatment Notes Treatment Clinical Notes Feb, History of NV (myocardial infarc tion) (ICD-10 - I25.2) Ms Marcelino is an 82 yr old female, previously managed by [facility] (Dr Yates), 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H significant for CAD s/p PCI to [...] mg twice daily RTC in 3 weeks Jan,Essential (primary) hypertension (ICD-10 - I10) Jan,Hyperlipidemia, unspecified hyperlipidemia type (ICD-10 - E78.5) Jan,History of DVT (deep vein thrombosis) (ICD-10 - Z86.718) [facility] Other 10-26-2023 Evaluation note* Encounter Date Diagnosis Assessment Notes Treatment Notes Treatment Clinical Notes Dec, Encounter for screen ing mammogram for breast cancer (ICD-10 - Z12.31) [facility] Other 08-29-2023 Evaluation note* Encounter Date Diagnosis Assessment Notes Treatment Notes Treatment Clinical Notes Oct, Carotid stenosis, bilateral (ICD -10 - I65.23) We reviewed today's carotid duplex studies which by velocities show less than 50% stenosis on the right and 50 to 69% stenosis on the left. She remains asymptomatic with occlusive disease and on goodmedical therapy with use of Plavix, Eliquis, and statin medication daily. We reviewed the signs andsymptoms of carotid occlusive disease and when would be appropriate to return for further evaluation prior to her next scheduled appointment. We will continue to follow her along on a routine basis and have her back again next year with repeat studies. She knows to call us in the meantime with any issues or concerns. 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 Instructed on motion and strengthening exercises, these were demonstrated. Activity as tolerated. Call with questions/concerns. 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 I really think that we could trial increasing the gabapentin. I feel this could very well improve her symptoms. She has been on this dose now for quite some time. She voices agreement and understanding will call with results. Sep,Essential (primary) hypertension (ICD-10 - I10)Excellent control seen here today, therefore no change. Sep,OtherThe goal of hypertension as always to have a blood pressure within acceptable limits, with patient staying compliant with medication. Increased activity, monitoring diet, and weight loss are always encouraged. [facility] Other 05-26-2023 Evaluation + Plan noteExtracted from:Title: Discharge NoteAuthor:Barrett Bales DODate:08/04/22 Discharge Status: Improved Discharge Instructions Given: To [...] HARDEEP MCKENZIE 08/17/2022 11:30 AM EDT [address], [facility] [address] [place] [address]- [facility] (1) Additional Instructions: Weakness, Skcg-cv-Ixjc Dehydration, Elderly, Ozrj-ei-Ouzj Extracted from:Title:SOAP Note: SimpleAuthor:Rodrgio VICTOR, Joseph PDate:08/04/22 Impression and Plan PATIENT DID NOT TOLERATE NEW MEDICAL REGIMEN FROM RECENT OV SHE HAS NO CHF (NO DYSPNEA OR PULMONARY EDEMA) , HENCE DOES NOT NEED DIURETICS HAS MILD HTN, FEELS WORSE ON INCREASED RX REC: RESTORE PRIOR REGIMEN TODAY I TOLD HER WE WOULD NOT CONTINUE BUMEX (DUE TO HER VOCIFEROUS COMPLAINTS) OK TO DISCHARGE AFTER ASSESSED BY PT/OT Extracted from:Title:APSO NoteAuthor:Javier PORTILLOeDate:08/03/22 1. AMS (altered mental statu s) (R41.82: [...] artery disease) (I25.10: Atherosclerotic heart disease of [place] coronary artery without angina pectoris) History of mild pulmonary hypertension Consult [facility] cardiology group. Per Dr Wallace continue at d/c Bumex 2 mg daily, [...] embolism) Eliquis 5 mg twice daily Extracted from:Title:SOAP Note: SimpleAuthor:Rodrigo VICTOR, Joseph [facility]:08/03/22 Impression and Plan CONSULT DICTATED DISCUSSED WITH CLAUDIA PALACIOS TO DISCHARGE ON MODIFIED MEDICAL REGIMEN Extracted from:Title:APSO NoteAuthor:Mehran PORTILLOte:08/02/22 1. AMS (altered mental statu s) (R41.82: [...] out correctly. Had pain up the left sideof her neck into the back of her [...] artery disease) (I25.10: Atherosclerotic heart disease of [place] coronary artery without angina pectoris) History of mild pulmonary hypertension follows with [facility] cardiology group-recently seen Dr. Tobias with changes [...] Oral, Once, Stop date 08/02/22 9:00:00 EDT, Routine,Start date 08/02/22 9:00:00 EDT, 08/02/22 8:40:00 EDT MRI Brain w/o Contrast Extracted from:Title:Admission H & PAuthor:Janes VICTOR, GeorgeDate:08/01/22 1. Weakness (R53.1: Weakness ) I wonder if the patient is having muscle weakness and pain due to statin given that she had similarsymptoms on atorvastatin. I will hold her statins and monitor for now. Consider switching to Zetia. Also might be due to dehydration and electrolyte derangements Obtain PT OT 2. CAD (coronary artery disease) (I25.10: Atherosclerotic heart disease of [place] coronary artery without angina pectoris) No chest [...] Daily, Routine, Start date 08/02/22 9:00:00 EDT, 08/02/2319:59:00 EDT famotidine, 40 mg = 2 tab(s), [...] Daily, Routine, Start date 08/02/22 9:00:00 EDT, 08/01/2320:00:00 EDT Sodium Chloride 0.9% intravenous solution 1,000 [...] Sodium Level Urine Vital Signs Weight Extracted from:Title:ED NoteAuthor:Hank Beard DODate:08/01/22 Dehydration (E86.0: Dehydrat ion) Hypokalemia (E87.6: Hypokalemia) [...] mL, IV, 250 mL/hr, STAT, Start date 08/01/2317:31:00 EDT, 4 hour(s), Total volume (mL): 1,000, 83 kg, 1.98, m2 Automated Diff Basic Metabolic Panel CBC w/ Auto Diff [place] Stroke Scale Communication Order Physician to Nursing Continuous Pulse Oximetry CT Head or Brain w/o Contrast ED Cardiac Monitoring eGFR Oxygen Therapy PT & PTT Routine Capillary Glucose POC Saline Lock Insert Stroke Quality Measures Troponin 0 Hr. TSH With T4fr Reflex UA With Cult Reflex Vital Signs XR Chest Single View Future Scheduled Tests Laboratory* Basic Metabolic Panel 12/03/21 [facility]05-26-2023 [facility]Result Comment: Electronically Signed By: Barrett Bales DO\Date and Time Signed: 08/04/22 10:55 [id number] Hospital Discharge instructions Patient Education 08/04/2022 10:39:31 Weakness, Dbfj-th-Olna Weakness Weakness is a lack of strength. [...] about working with a physical therapist or computer technology trainer to help you get stronger. General instructions Take jyiv-ipb-oljjgwd and prescription medicines only as told by [...] provider. Document Revised: 01/29/2022 Document Reviewed: 01/29/2022 [employer] Patient Education 2022 [employer]. 08/04/2022 10:39:31 Dehydration, Elderly, Rytv-dg-Ewon Dehydration, Elderly Dehydration is condition in which [...] or sea (high in altitude). The thinner, rotary drier feeder air causes more fluid loss. What are [...] of fat or sugar. General instructions Take xnhw-isn-fgorini and prescription medicines only as told by [...] start slowly drinking other clear fluids. Take gsbk-gkr-nnzpqkv and prescription medicines only as told by your doctor. Get help right away if you have any symptoms of very bad dehydration. This information is not intended to replace advice given to you by your health care provider. Make sure you discuss any questions you have with your health care provider. Document Revised: 10/09/2019 Document Reviewed: 10/09/2019 [employer] Patient Education 2022 [employer]. Follow Up Care 08/01/2022 17:07:34 With:HARDEEP MCKENZIE Address: [facility] [address] [address]- Business (1) When:08/17/2022 11:30:00 [facility]05-24-2023 NotePT Evaluation completed with an [facility] score of 24/24. Pt functioning at baseline level with use of Rollator walker. No further PT services needed[facility] Note [facility] HospitalComment on above:Result Comment: Electronically Signed By: Janes VICTOR, Chidi\.br\Date and Time Signed: 08/01/22 21:39 EDT 07-04-2022 Evaluation note* Encounter Date Diagnosis Assessment Notes Treatment Notes Treatment Clinical Notes Jun, Essential (primary) hypertension (ICD-10 - I10) [facility] Other 04-20-2023 Hospital Discharge instructions Patient Education [...] by your health care provider. Medicines Take rogb-nqq-uqnnfdi and prescription medicines only as told by [...] provider. Document Revised: 10/31/2021 Document Reviewed: 10/31/2021 [employer] Patient Education 2022 [employer]. 06/29/2022 10:27:25 Form - Blood Pressure Record [...] provider. Document Revised: 11/10/2021 Document Reviewed: 11/10/2021 [employer] Patient Education 2022 [employer] 06/29/2022 08:27:55 Deep Vein Thrombosis Deep Vein [...] what medicines you take. General instructions Take ztcs-yzv-atmwjdo and prescription medicines only as told by [...] is important. Where to find more information [place] [employer]: www.heart.org Centers for Disease Control and Prevention: www.cdc.gov National Heart, Lung, and Blood [place]: www.nhlbi.nih.gov Contact a health care provider if: [...] provider. Document Revised: 09/19/2021 Document Reviewed: 09/19/2021 [employer] Patient Education 2022 [employer]. Follow Up Care 06/27/2022 10:05:42 With:Angélica Yates Address: [facility] [address], [address] [place] [address]- Business (1) When:07/25/2022 10:50:00 With:HARDEEP MCKENZIE Address: [facility] [address], [facility] [address] [place] [address] Business (1) When:07/03/2022 08:30:00 With:Keep your pending appt with Dr. Curtis Walker as prev. scheduled. Address:Unknown When: Unknown [facility]04-19-2023 Evaluation + Plan noteExtracted from: Title:Progress Note *Author:Trudy VICTOR, Manite:06/28/22 Impression and Plan 1 acute deep vein [...] event. Patient is scheduled for follow-up with vascularsurgery. 2 s/p PCI of the right coronary [...] chronic. 4 hyperlipidemia on medical therapy. Extracted from:Title:APSO NoteAuthor:Javier PORTILLOeDate:06/28/22 PLAN: 1. Chest pain (R07.9: Chest pain, unspecified) Complains of pain radiating from chest into her back--ACS ruled out with negative troponins and twelve-lead CTA of the chest to negative for PE Chest x-ray negative BNP slightly -131 not impressive for heart failure Twelve-lead EKG shows no acute changes or findings. Troponin levels negative x4. Telemetry. Consult [facility] cardiology group-patient typically follows. 2. CAD (coronary artery disease) (I25.10: Atherosclerotic heart disease of [place] coronary artery without angina pectoris) 11/2016 non-STEMI with LETICIA to RCA diastolic dysfunction, mild pulmonary hypertension, mild carotid artery disease Echo 12/01 showed normal left ventricular systolic function with an EF of 65% with stage I diastolicdysfunction and mildly dilated left atrium. Mild MR/TR [...] with Dr. Royce Douglas vascular surgeon in [place] for left lower extremity DVT 20+ years [...] further work-up and treatment of above. Extracted from:Title:Admission H & PAuthor:SARA VILLAGRAN, JaviereDate: 06/27/22 PLAN: 1. Chest pain (R07.9: Chest pain, unspecified) Complains of pain radiating from chest into her back CTA of the chest to negative for PE Chest x-ray negative BNP slightly -131 not impressive for heart failure Twelve-lead EKG shows no acute changes or findings. Troponin levels currently negative x2 Telemetry. Consult [facility] cardiology group-patient typically follows. 2. CAD (coronary artery disease) (I25.10: Atherosclerotic heart disease of [place] coronary artery without angina pectoris) 11/2016 non-STEMI with LETICIA to RCA diastolic dysfunction, mild pulmonary hypertension, mild carotid artery disease Echo 12/01 showed normal left ventricular systolic function with an EF of 65% with stage I diastolicdysfunction and mildly dilated left atrium. Mild MR/TR and mild pulmonary hypertension Aspirin, statin, Plavix, GARRET, beta-rudi 3. Edema of lower extremity (R60.0: [...] mL, Susp-Oral, Oral, q6hr PRN Indigestion, Routine, Startdate 06/27/22 17:19:00 EDT heparin, 5,000 unit(s) = [...] Scheduled Tests Laboratory* Basic Metabolic Panel 12/03/21 [facility]04-10-2023 Evaluation note* Encounter Date Diagnosis Assessment Notes Treatment Notes Treatment Clinical Notes Jun, Chronic fatigue (ICD-10 - R53.82 ) Discussed with patient it is certainly reasonable to recheck labs at this time. It has been 3 months. With her new concerns, we will proceed and call her with results. Jun,Essential (primary) hypertension (ICD-10 - I10)Good control seen here today, therefore no change. Jun,Vitamin D deficiency (ICD-10 - E55.9)We will call patient with results of the blood work. Jun,Leg edema (ICD-10 - R60.0)Will hold due on duiretic due to previous HX of issues with electrlytes - will await lab results. Jun,ruising (ICD-10 - T14.8XXA)Discussed with patient that I feel that this is really secondary to her Plavix. We will go ahead and add a PT/INR to the blood work. [facility] Other 03-10-2023 NoteIMPRESSION: PROGRESSIVE OSTEOPENIA OTHERWISE NO SIGNIFICANT CHANGE IN POSTOPERATIVE AND DEGENERATIVE FINDINGS. Shingle Carrier: ZENIA Transcribe Date/Time: May 19 2022 4:34P Dictated by : LONNIE DENT MD This examination was interpreted and the report reviewed and electronically signed by: LONNIE DENT MD on May 19 2022 4:37PM EST DIVISION OF [id number] History of Present illness Narrative* Padma Leon Segn, RT(R) - 05/19/2022 2:08 PM EST Radiology [...] 19, 2022 2:08 PM documented in this encounterMer[facility]03-10-2023 History of Present illness Narrative* Hank Jauregui [...] of bed between toes 1,2 PCP: Hardeep Mckenzie DO PAST MEDICAL HISTORY Diagnosis Date Arterial aneurysm (HCC) left eye Asthma rare use of albuterol, controled with zafirlukast, advair Bilateral shoulder injury before 1999 working in [employer] home Cataract of left eye Cataracts, bilateral HTN (hypertension) Hyperlipidemia Lung nodule 06/2015 Macular degeneration DESTINY (obstructive sleep apnea) s/p pharyngoplasty no cpap Pseudophakia of right eye Current Outpatient Medications Medication Sig montelukast (SINGULAIR) 10 mg tablet Take 10 mg by mouth once daily. omega 4-eye-ntg-fish oil (FISH OIL) 100-160-1,000 mg cap Take by mouth. Walker misc front wheeled walker dx left knee hematoma, Print Requisition, Compound multivitamin (MULTIPLE VITAMINS ORAL) Refill(s) 0 baclofen (LIORESAL) 10 mg tablet Baclofen Baclofen Active 5 MG Oral Daily at bedtime August 01, 20173:16pm 08-01-2017 [facility] ([id number]) cetirizine 10 mg ODT Cetirizine Cetirizine Active 10 MG Oral Daily August 01, 2017 3:16pm [id number] ([id number]) Cholecalciferol, Vitamin D3, (VITAMIN D-3) 2,000 unit [...] 1:12 PM EST z documented in this encounterMercy Health Tiff[facility]03-10-2023 History of Present illness Narrative* RT Abhijit(R) [...] 19, 2022 12:56 PM documented in this encounterMercy Health [facility]iff[facility]03-09-2023 NoteCONSULTATION CONSULTATION DATE: 05/18/2022 HISTORY OF PRESENT ILLNESS: This is a very active, 81-year-old female who returns to the clinic status post caudal epidural steroid injection completed on 04/25/2022. The patient received 100% relief which is ongoing. She is currently going through cardiac rehab, as she had an NV in November of 2021. Overall, she feels [...] to the Pain Clinic. All questions answered.[facility] [id number] Note CONSULTATION PROCEDURE DATE: 04/11/2022 PREOPERATIVE DIAGNOSIS: [...] will be followed up in the office.[facility] [id number] NoteCONSULTATION CONSULTATION DATE: 04/11/2022 HISTORY OF PRESENT [...] proceed with this CC: Hardeep Mckenzie D.O.[facility] [id number] Evaluation note* Encounter Date Diagnosis Assessment Notes Treatment Notes Treatment Clinical Notes Mar, Left leg swelling (ICD-10 - M79. 89) Pt to keep well eleavated - call with results - if worsens, even though on Plavix, would consider US for clot. Would also consider xray of knee if persists... [facility] Other 01-10-2023 Evaluation note* Encounter Date Diagnosis Assessment Notes Treatment Notes Treatment Clinical Notes Mar, Chronic cough (ICD-10 - R05.3) E Rx sent. Patient to call if no improvement seen. We must consider chest x-ray if symptoms persist. Mar,hronic fatigue (ICD-10 - R53.82)Etiology is unclear. Deconditioning? We will pursue blood work to make sure there is no organic caus ation. Patient voices agreement and understanding. 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 [facility] Other 11-24-2022 Evaluation + Plan noteExtracted from:Title: ED NoteAuthor:Benton Sutherland DODate:02/02/22 Allergic reaction (T78.40XA: Allergy, unspecified, initial encounter) Orders: acetaminophen, 650 mg = 2 tab(s), Tab, Oral, Once, Stop date 02/02/22 5:36:00 EST, STAT, Start date02/02/22 5:36:00 EST, 02/02/22 5:36:00 EST cephalexin, 500 mg = 1 cap(s), Oral, q12hr, X 5 day(s), # 10 cap(s), Refills(s) 0, Pharmacy: [facility], 170, cm, 02/02/22 5:38:00 EST, Height/Length Dosing, 90, kg, 02/02/22 5:38:00 EST, Weight Dosing predniSONE, 40 mg = 2 tab(s), Tab, Oral, Once, Stop date 02/02/22 5:36:00 EST, STAT, Start date 02/02/22 5:36:00 EST, 02/02/22 5:36:00 EST Future Scheduled Tests Laboratory* Basic Metabolic Panel 12/03/21 [facility]11-24-2022 Hospital Discharge instructions Patient Education 02/02/2022 06:54:54 [...] care provider who specializes in treating allergies (bellperson). You may also have tests, including: Skin [...] flush out your nose (nasal irrigation). Take giah-msz-ziplnbj and prescription medicines only as told by [...] 05/22/2003 Document Revised: 05/22/2018 Document Reviewed: 09/13/2016 [employer] Patient Education 2020 [employer]. Follow Up Care 02/02/2022 05:33:35 With:HARDEEP MCKENZIE Address: [address], [facility] [address] [place] [address]- Business (1) When:Within 3 Day(s) [facility]11-24-2022 History of Present illness Narrative* Ross Flores DO - 02/02/2022 5:02 AM EST Images from the original note were not included. EMERGENCY TRIAGE, TREAT AND TRANSPORT (ET3) DOCUMENTATION OF TELEHEALTH VISIT Date / Time: 02/02/2022 / 0445 Name: Carly Navas : 1940 SSN: (Not on file) EMS Agency: [facility] [x] Verbal consent obtained [] [...] by: Ross Flores DO documented in this [id number] NoteCONSULTATION PROCEDURE DATE: 01/31/2022 PREOPERATIVE DIAGNOSIS: Left [...] will be followed up in the office.[facility] [id number] Note CONSULTATION CONSULTATION DATE: 01/31/2022 CHIEF COMPLAINT: [...] individual. The patient recently, unfortunately, suffered an NV event on 11/23/2021 which required her to [...] diagnosis on the patient is status post NV, status post bilateral total shoulder replacement, trapezius [...] would like to proceed. CC: Dr. Rico [facility] [id number] Evaluation note* Encounter Date Diagnosis Assessment Notes Treatment Notes Treatment Clinical Notes Jan, Essential (primary) hypertension (ICD-10 - I10) E Rx sent. No other change today. Patient denies any other significant concern, so we will simply recheck in 6 months. She can certainly call at any time prior to that for any concerns. Jan,therThe goal of hypertension as always to have a blood pressure within acceptable limits, with patient staying compliant with medication. Increased activity, monitoring diet, and weight loss are always encouraged. [facility] Other 11-02-2022 Evaluation note* Encounter Date Diagnosis Assessment Notes Treatment Notes Treatment Clinical Notes Jan, Cough (ICD-10 - R05.9) [facility] Other 10-18-2022 History of Present illness Narrative* Ashley Angel MD - 12/27/2021 1:41 PM EDT Previously followed by Dr Romero - shirin seen (Dec 2015) and then by Dr. 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 documented in this encounterMercy Health [facility]iffin Hospital10-11-2022 Evaluation note* Encounter Date Diagnosis Assessment Notes Treatment Notes Treatment Clinical Notes Dec, Encounter for screen ing mammogram for malignant neoplasm of breast (ICD-10 - Z12.31) Dec,Essential (primary) hypertension (ICD-10 - I10)Lengthy 30+ minute discussion with patient today. This [...] the results from her appointment with cardiology. [facility] Other 10-07-2022 Hospital Discharge instructions Patient Education [...] Follow these instructions at home: Medicines Take vczb-ojd-kzxyjqc and prescription medicines only as told by [...] is important. Where to find more information [place] [employer] Kid[employer] Patients: www.aakp.org National Kidney Foundation: www.kidney.org [place] [employer]: www.akfinc.org [facility]: [...] 09/11/2011 Document Revised: 02/08/2018 Document Reviewed: 02/16/2017 [employer] Patient Education [employer]. Follow Up Care 12/15/2021 11:06:59 With:HARDEEP MCKENZIE DO, FAM Address: [address] [place] [address]- When:12/20/2021 10:45:00 [facility]10-06-2022 Evaluation + Plan noteExtracted from: Title:Admission H & PAuthor:Nathaniel VICTOR, Gordy SDate:12/15/21 81-year-old female monthly w ith past medical [...] BNP, UA unremarkable. BMP with LALY. Elevated D-dimer Given recent admissions and symptoms patient will benefit from Holter monitor outpatient. Order placed in Cerner Elevation of D-dimer History of left extremity [...] made to ensure accuracy, however, inadvertently computerized exhaust emissions inspector mistakes may be present. Dr. Gordy [facility] Hospitalist 1. History of hypotension (Z86.79: Personal history of other diseases of the circulatory system) 2. Elevated d-dimer (R79.89: Other specified abnormal findings of blood chemistry) 3. LALY (acute kidney injury) (N17.9: Acute kidney failure, unspecified) 4. CAD (coronary artery disease) (I25.10: Atherosclerotic heart disease of [place] coronary artery without angina pectoris) 5. Diastolic [...] Venous Duplex Bilateral Vital Signs Weight Extracted from:Title:ED NoteAuthor:Patrick VICTOR, TimDate:12/15/21 1. History of hypotension (Z 86.79: Personal [...] Panel 12/18/21 * Basic Metabolic Panel 12/03/21 [facility]10-06-20[facility] History of Present illness Narrative* Diaz Sloan DO - 12/15/2021 11:08 AM EDT Images from the original note were not included. EMERGENCY TRIAGE, TREAT AND TRANSPORT (ET3) DOCUMENTATION OF TELEHEALTH VISIT Date / Time: 12/15/2021 / 1030 am Name: Ryann Mccord : 1940 SSN: (Not on file) EMS Agency: [facility] [x] Verbal consent obtained [] [...] Dr. Diaz Sloan DO documented in this [id number] Evaluation + Plan note Extracted from:Title:Discharge NoteAuthor:KRAIG VICTOR, CandiceaDate:12/13/21 stable Discharge To, Anticipated II - Home [...] MCKENZIE 12/20/2021 10:45 AM EDT [address] [id number] [facility] (1) Additional Instructions: Coronary Artery Disease (CUSTOM) Extracted from:Title:SOAP Note: SimpleAuthor:Joseph Wallace MD PDate:12/12/21 Patient: CARLY MARCELINO Age: 81 years Sex: Female : 1940 Associated Diagnoses: None Author: Joseph Wallace MD Impression and Plan CONSULT DICTATED NON CARDIAC CHEST PAIN PALPITATION OF UNCERTAIN ETIOLOGY REC: SAME MEDS, OK TO DISCHARGE I EXPLAINED TO HER THAT HER CARDIAC CONDITION IS STABLE TREAT FOR GERD CARDIAC REHAB ENROLLMENT WILL PREVENT RECURRENT ADMISSIONSAddendum by Joseph Wallace MD on December 12, 2021 14:15 EDT I RECOMMEND RESUMPTION OF DYAZIDE 37.5/25 ONE HALF TABLET DAILY IN ADDTION TO OTHER MEDS OK TO DISCHARGE TODAY Extracted from:Title:Admission H & PAuthor:Chandan SMITH DO ADate:12/12/21 1. Chest pain (R07.9: Chest pain, unspecified) Symptoms were atypical, she states they differed from the symptoms she had prior to his stent. Thusfar cardiac enzymes are negative. Patient did have [...] artery disease (I25.10: Atherosclerotic heart disease of [place] coronary artery withoutangina pectoris) Patient had a percutaneous intervention of the right current artery with a drug- eluting stent. Continue dual antiplatelets aspirin, Brilinta, metoprolol [...] progressive dyspnea on exertion she was not or thopneic. Noted on cardiac catheterization patient had normal systolic function recent imaging did demonstrate stage I diastolic dysfunction. Was not impressed with the chest x-ray. She is afebrile, no leukocytosis. Monitor volume status 4. HTN (I10: Essential (primary) hypertension) Continue metoprolol low-dose extended release as prescribed by Dr. Yatse on previous admission. Note after evaluating the patient looking at the med reconciliation to have list of both losartan andlisinopril. For now we will order losartan but [...] q6hr PRN Nausea, Routine, Start date 12/12/21 7:28:00EDT, 12/12/21 7:28:00 EDT ticagrelor, 90 mg = [...] would not require 2 midnight stay Extracted from:Title:ED NoteAuthor:Do Montez DO ADate:12/11/21 Chest pain (R07.9: Chest mayuri n, unspecified) [...] Scheduled Tests Laboratory* Basic Metabolic Panel 12/03/21 [facility]10-04-2022 Hospital Discharge instructions Patient Education 12/13/2021 09:12:42 [...] lead to a heart attack (myocardial infarction, NV). An NV can lead to heart failure, cardiogenic shock, or sudden cardiac . CAD can cause an NV through: Plaque buildup that can severely narrow [...] coronary artery is narrowed or blocked, an NV can occur. NV symptoms can include: Chest pain (agina). Angina [...] usefull in the detection of asudden (acute) NV or as a marker for a previous NV. Depending on which heart (coronary) artery may be blocked, an ECG may not car pick up driver an NV pattern. Exercise stress test. A stress test [...] anti- platelet medicine can result in an NV. Talk with your caregiver before stopping medicine or if you cannot afford your medicine. If the coronary arteries are significantly blocked, surgery may be needed. This can include: ? Percutaneous coronary intervention (PCI) with or without stent placement. ? Coronary artery bypass graft surgery (CABG). SEEK IMMEDIATE MEDICAL CARE IF: You develop NV symptoms. This is a medical emergency. Get help at once. Call your local emergency service (911 in the [place] immediately. Do not drive yourself to the clinic or hospital. NV symptoms can include: ? Angina or pain that occurs in the neck, arm, jaw, or in the upper middle back. ? Profuse sweating without cause. ? Shortness of breath or difficulty breathing without cause. ? Unexplained nausea or epigastric pain that feels like heartburn. Document Released: 05/20/2012 Document Reviewed: 06/30/2014 ExitCare Patient Information 2015 [employer]. This information is not intended to replace advicegiven to you by your health care provider. Make sure you discuss any questions you have with your health care provider. Follow Up Care 12/11/2021 18:21:43 With:HARDEEP MCKENZIE Address: [address] [facility] [address] [place] [address]- Business (1) When:12/20/2021 10:45:00 [facility]09-24-2022 Evaluation + Plan note Future Scheduled Tests Laboratory* Basic Metabolic Panel 12/03/21 [facility]09-23-2022 Evaluation + Plan noteExtracted from: Title:Discharge NoteAuthor:Nathaniel VICTOR, Gordy SDate:12/02/21 Discharged to - Home independently Discharge Diet(s): [...] With When Contact Information HARDEEP MCKENZIE DO, [facility] Within 2 to 4 days [address], [facility] [address] [place] [address]- Additional Instructions: Syncope Extracted from:Title:Progress Note *Author:Doe VICTOR, DamasofDate:12/02/21 Impression and Plan 1. Questionable syncopal episode [...] not to check her heart rate frequently consideringit seems to be causing her significant anxiety and considering no arrhythmia were documented 4. Continue long-term follow-up with her primary transport conductor Dr. Yates Extracted from:Title:Cardiovascular Admission H&P *Author:Doe VICTOR, Anjana Date:12/01/21 Impression and Plan 1. Questionable [...] home in a.m. if remains stable Extracted from:Title:Admission H & PAuthor:Renay SALINAS DO RDate:11/30/21 1. Syncope (R55: Syncope and collapse) Supportive [...] artery disease) (I25.10: Atherosclerotic heart disease of [place] coronary artery without angina pectoris) We will [...] midnights. Patient will be observation status. Extracted from:Title:ED NoteAuthor:Maddie DEL RIO, JansenDate:11/30/21 1. Syncope (R55: Syncope and collapse) Orders: [...] Scheduled Tests Laboratory* Basic Metabolic Panel 12/03/21 [facility]09-22-2022 Hospital Discharge instructions Patient Education 12/01/2021 11:37:05 [...] your urine pale yellow. General instructions Take dqus-yks-zmabvgz and prescription medicines only as told by [...] right away. Call your local emergency services (241 in the [place] Do not drive yourself [...] 02/26/2006 Document Revised: 02/08/2018 Document Reviewed: 02/04/2018 [employer] Patient Education 2020 [employer]. Follow Up Care 11/30/2021 20:08:01 With:HARDEEP MCKENZIE DO, [facility] Address: [facility] [address] [facility] [address] [place] [address]- When:2 to 4 days Comments:No answer at PCP. Please contact office on Sunday, December 05 to schedule an appointment. Thank you! With:Doe VICTOR, Anjana, CAR Address: [facility] [address], [address] [place] [address]- Business (1) When:12/22/2021 11:30:00 [facility]09-17-2022 Hospital Discharge instructions Patient Education 11/26/2021 13:08:44 [...] including vitamins, herbs, eye drops, creams, and bkiy-txs-wuaaknf medicines. Any problems you or family members [...] 09/02/2003 Document Revised: 02/08/2018 Document Reviewed: 12/08/2016 [employer] Patient Education 2020 [employer] 11/26/2021 13:08:44 Coronary Angiogram Coronary Angiogram A [...] including vitamins, herbs, eye drops, creams, and htnq-cph-oicjmqx medicines. Any problems you or family members [...] 09/02/2003 Document Revised: 02/08/2018 Document Reviewed: 12/08/2016 [employer] Patient Education 2020 [employer]. Follow Up Care 11/23/2021 08:36:38 With:Angélica Yates Address: [facility] [address], [address] [place] [address]- Business (1) When:2 weeks With:HARDEEP MCKENZIE Address: [address] [place] [address]- Business (1) When:12/05/2021 15:30:00 [facility]09-17-2022 Evaluation + Plan noteExtracted from: Title:Discharge NoteAuthor:JAMES VICTOR, HasanDate:11/26/21 Discharge To, Anticipated II - Home with [...] PM EDT [address] [place] [address]- Business (1) Additional Instructions: Angélica Yates Within 2 weeks [facility] [address] [place] [address]- Business (1) Additional Instructions: Extracted from:Title:Progress Note *Author:Trudy VICTOR, Manite:11/25/21 Impression and Plan 1 CAD involving the right coronary artery in the proximal segment status post 2 stents placement yesterday by Dr. Arriaga with no complications. Her other coronary arteries were normal, ejection fraction was normal. Continue antiplatelet therapy and high intensity statin. Cardiac rehab as anoutpatient and possible discharge home tomorrow. 2 hypertension currently controlled on Dyazide and losartan 3 dyslipidemia on high intensity statin 4 history of seizure activity that has been quiescent 5 mild oozing at the cardiac cath site in the right groin but without hematoma and likely not consequential Extracted from:Title:APSO NoteAuthor:JAMES VICTOR, HasanDate:11/25/21 1. NSTEMI (non-ST elevated m yocardial infarction) [...] Daily, # 30 tab(s), Refills(s) 0, Pharmacy: [facility] #[facility], 170.2, cm, 11/23/21 8:42:00 EDT, Height/Length Dosing, 88, kg, 11/23/21 8:42:00 EDT, Weight Dosing metoprolol, 25 mg = 1 tab(s), Oral, BID, X 30 day(s), # 60 tab(s), Refills(s) 0, Pharmacy: [facility] #37, 170.2, cm, 11/23/21 8:42:00 EDT, Height/Length Dosing, 88, kg, 11/23/21 8:42:00 EDT, Weight Dosing ticagrelor, 90 mg = 1 tab(s), Oral, BID, # 60 tab(s), Refills(s) 0, Pharmacy: [facility] #[facility], 170.2, cm, 11/23/21 8:42:00 EDT, Height/Length Dosing, 88, kg, 11/23/21 8:42:00 EDT, Weight Dosing ECG 12 Lead Adult Referral to Resource Center Referral to Resource Center Extracted from:Title:Progress Note *Author:Trudy VICTOR, [facility] CenteranDate:11/24/21 Impression and Plan 1 crescendo angina, the patient need invasive cardiac evaluation and is scheduled for cardiac catheterization this afternoon. The benefits and potential risks of the procedure were discussed with thepatient she is in full endorsement of the approach. 2 hypertension currently controlled on Dyazide and losartan 3 dyslipidemia on no statin 4 history of seizure activity that has been quiescent Extracted from:Title:APSO NoteAuthor:JAMES VICTOR, [facility] CenteranDate:11/24/21 1. NSTEMI (non-ST elevated m yocardial infarction) (I21.4: Non-ST elevation (NSTEMI) myocardial infarction) - elevated troponin in setting of chest pain on admission - lovenox, metoprolol, statin - echo - consult [facility] cardiology 2. HTN (I10: Essential (primary) hypertension) [...] Spirometry Initial Observation Care/Day Moderate 50 min [id number] Intake and Output Lipid Panel Notify Provider Vital Signs Notify Provider Vital Signs NPO Diet Oxygen Protocol Place in Status Precautions Precautions Pulse Oximetry Vital Signs Weight Extracted from:Title:Admission H & PAuthor:JAMES VICTOR, HasanDate:11/23/21 1. Other chest pain (R07.89: Other chest pain) - possible ACS, risk factors age, obesity, HNT - telemetry, troponin, fasting lipid profile, ASA - consult [facility] cardiology 2. HTN (I10: Essential (primary) hypertension) [...] Precautions Pulse Oximetry Vital Signs Weight Extracted from:Title:ED NoteAuthor:Stacia Dwyer DODate:11/23/21 1. Other chest pain (R07.89: Other chest pain) 2. HTN (I10: Essential (primary) hypertension) 3. Seizure disorder (G40.909: Epilepsy, unspecified, not intractable, without status epilepticus) 4. Obesity due to excess calories (E66.09: Other obesity due to excess calories) 5. No contraindication to deep vein thrombosis (DVT) prophylaxis (Z78.9: Other specified health status) Orders: ED Physician consult Hospitalist for continued care [facility]08-29-2022 Evaluation note* Encounter Date Diagnosis Assessment Notes Treatment Notes Treatment Clinical Notes Oct, Asymptomatic bilateral carotid a rtery stenosis (ICD-10 - I65.23) Oct,therCarotid occlusive disease She is asymptomatic at this time with a stable duplex examination. We will follow her on an annual basis with repeat ultrasound. She will continue her current medical regimen [facility] Other 08-23-2022 NotePAIN MANAGEMENT CONSULTATION CONSULTATION DATE: [...] would like to proceed. CC: [facility]. [id number] Evaluation note* Encounter Date Diagnosis Assessment Notes Treatment Notes Treatment Clinical Notes July, Left Achilles tendinitis (ICD-10 - M76.62) Lengthy discussion with patient today that due to ongoing concerns and pain, I really think she would be best served by pursuing definitive imaging, in this case an MRI. Certainly the treatment options as pursued by the 2 clothes designer did not help. She voices agreement and understanding. [facility] Other 04-13-2022 Evaluation note* Encounter Date Diagnosis Assessment Notes Treatment Notes Treatment Clinical Notes Jun, Impacted cerumen, right ear (ICD -10 - H61.21) See procedure note Jun,Essential (primary) hypertension (ICD-10 - I10)Excellent control seen from there. Certainly patient to call at any time when she desires to reportconcerns or questions. She voices agreement and understanding. Jun,therThe goal of hypertension as always to have a blood pressure within acceptable limits, with patient staying compliant with medication. Increased activity, monitoring diet, and weight loss are always encouraged. [facility] Other 02-28-2022 Evaluation note* Encounter Date Diagnosis Assessment Notes Treatment Notes Treatment Clinical Notes Apr, Carotid stenosis, bilateral (ICD -10 - I65.23) We reviewed today's carotid duplex [...] report that she takes a fish oil da sophia. He is uninterested in taking any sort [...] an annual basis with routine surveillance studies. Sheknows to call us with any other issues arise. She verbalizes understanding of all discussion, agrees with this plan, and denies any questions. [facility] Other 01-18-2022 Evaluation note* Encounter Date Diagnosis Assessment Notes Treatment Notes Treatment Clinical Notes Mar, Dizziness (ICD-10 - R42) [facility] Other 10-28-2021 Evaluation note* Encounter Date Diagnosis Assessment Notes Treatment Notes Treatment Clinical Notes Dec, Encounter for screen ing mammogram for malignant neoplasm of breast (ICD-10 - Z12.31) [facility] Other 10-25-2021 Evaluation note* Encounter Date Diagnosis Assessment Notes Treatment Notes Treatment Clinical Notes Dec, Edema extremities (ICD-10 - R60. 0) BILATERAL LE SWELLING. Ms. Marcelino does not [...] and she agrees and wishes to proceed Dec,Former smoker (ICD-10 - Z87.891) [facility] Other 10-04-2021 Evaluation note* Encounter Date Diagnosis Assessment Notes Treatment Notes Treatment Clinical Notes Dec, Chronic venous insufficiency (IC D-10 - I87.2) CVI OR LYMPHEDEMA. We will obtain a follow-up full functional venous duplex examination. There may be some inflow component and it is possible that she would require a venogram with intravascular ultrasound. 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, 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 [facility] Near syncope- Primary Syncope and [...] disease of nail [facility] Diagnosis 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- Primary Exposure keratoconjunctivitis PCO (posterior capsular opacification), right After-cataract, unspecified Pseudophakia, right eye Lens replaced by other means Retinal hemorrhage of left eye Retinal hemorrhage 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, unspecified Combined form of age-related cataract, left eye [facility] Diagnosis Onset Date Resolution Status Subarachnoid hemorrhage acuteBlurred vision, bilateralnoneactive [facility] Work Phone: evaluation note* Diagnosis Nonspecific abnormal electroencephalogram (EEG)- Primary Seizure (HCC) Other convulsions Morbid obesity (HCC) Morbid obesity [facility]* Diagnosis Onset Date Resolution Status Subarachnoid hemorrhage acuteBlurred vision, bilateralnoneactiveCoronary artery diseaseacuteEssential (primary) hypertensionacuteSubarachnoid hemorrhageacuteChronic venous hypertensionchronicLymphedema of both lower extremitieschronic [facility] Work Phone: Evaluation note* Diagnosis Nonspecific abnormal electroencephalogram (EEG)- Primary [facility] [place] [facility]* Diagnosis Onset Date Resolution Status Subarachnoid hemorrhage acuteBlurred vision, bilateralnoneactiveCoronary artery diseaseacuteEssential (primary) hypertensionacuteSubarachnoid hemorrhageacuteChronic venous hypertensionchronicLymphedema of both lower extremitieschronicAnxietyacute [facility] Work Phone: Evaluation note* Diagnosis SAH (subarachnoid hemorrhage) (HCC)- Primary Subarachnoid hemorrhage Cerebral amyloid angiopathy (CODE) Nontraumatic subarachnoid hemorrhage (HCC) Subarachnoid hemorrhage Morbid obesity (HCC) Morbid obesity documented [facility] [place] [facility]* Diagnosis SAH (subarachnoid hemorrhage) (HCC)- Primary Subarachnoid hemorrhage Anxiety attack Panic disorder without agoraphobia Physical deconditioning Debility, unspecified [facility] [place] [facility]* Diagnosis Subdural hematoma (HCC)- Primary Subdural [...] note* Diagnosis Onset Date Resolution Status Anxiety acuteAnxietyacuteEssential (primary) hypertensionacuteHyponatremiaacuteCoronary artery diseaseacuteEssential (primary) hypertensionacuteSubarachnoid hemorrhage acuteChronic venous hypertensionchronicLymphedema of both lower extremities chronicHistory of head injurynonACMC Healthcare [facility] Work Phone: Evaluation note* Diagnosis Subdural hematoma (HCC)- Primary Subdural hemorrhage [facility]* Diagnosis SDH (subdural hematoma) (HCC) Subdural hemorrhage [facility]* Diagnosis PCO (posterior capsular opacification), right- Primary After-cataract, unspecified Meibomian gland dysfunction (MGD) of upper and lower lids of both eyes Insufficiency of tear film of both eyes Pseudophakia, right eye Lens replaced by other means Retinal hemorrhage of left eye Retinal hemorrhage Combined form of age-related cataract, left eye [facility]* Diagnosis S/P YAG capsulotomy, right- Primary Pseudophakia, right eye Lens replaced by other means Retinal hemorrhage of left eye Retinal hemorrhage Insufficiency of tear film of both eyes 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 Exposure keratoconjunctivitis documented [facility]* Diagnosis Onset Date Resolution Status Anxiety acuteEssential (primary) hypertensionacuteHyponatremiaacuteCoronary artery diseaseacuteEssential (primary) hypertensionacuteSubarachnoid hemorrhageacute Chronic venous hypertensionchronicLymphedema of both lower extremitieschronic History of head injurynoneactiveSubarachnoid hemorrhageAdena [facility] Work Phone: Evaluation note* Diagnosis Closed fracture of twelfth thoracic vertebra, unspecified fracture morphology, initial encounter ([facility])- Primary Fall from standing, initial encounter [facility]* Diagnosis Subdural hematoma (HCC)- Primary Subdural hemorrhage [facility] Diagnosis Onset Date Resolution Status Coronary artery disease acuteEssential (primary) hypertensionacuteSubarachnoid hemorrhageacuteChronic venous hypertensionchronicLymphedema of both lower extremitieschronicHistory of head injurynoneactiveSubarachnoid hemorrhageacute [facility] Work Phone: Evaluation note* Diagnosis Onset Date Resolution Status Coronary artery disease acuteEssential (primary) hypertensionacuteSubarachnoid hemorrhageacuteChronic venous hypertensionchronicLymphedema of both lower extremitieschronicHistory of head injurynoneactiveSubarachnoid hemorrhageacuteSubarachnoid hemorrhageacute Back painnoneactiveTremornonctive [facility] Work Phone: Evaluation note* Diagnosis Pain Generalized pain [facility]* Diagnosis Contusion of right foot, initial encounter Enthesopathy of foot Enthesopathy of ankle and tarsus, unspecified Tendonitis, Achilles, left Achilles bursitis or tendinitis Calcaneal spur of left foot Calcaneal spur Acquired dysmorphic toenail Other specified disease of nail [facility]* Diagnosis Onset Date Resolution Status Subarachnoid hemorrhage acuteSubarachnoid hemorrhageacuteBack painnoneactiveTremornoneactiveSubarachnoid hemorrhageacute [facility] Work Phone: Evaluation note* Diagnosis Intracranial hemorrhage (CMS/HCC)- Primary Unspecified intracranial hemorrhage Essential hypertension (CMS/HCC) Unspecified essential hypertension History of seizure disorder Other personal history of disorders of nervous system and sense organs [facility] Diagnosis Traumatic brain injury, with unknown loss of consciousness status, sequela (HCC) - Primary Decreased hearing, unspecified laterality [facility]* Diagnosis Idiopathic progressive polyneuropathy- Primary Onychomycosis Dermatophytosis of nail Corns and callosities [facility] Diagnosis Idiopathic progressive polyneuropathy- Primary Onychomycosis Dermatophytosis of nail Corns and callosities [facility]* Diagnosis Urinary incontinence, unspecified type- Primary Cystitis Cystitis, unspecified Fall, initial encounter [facility] N[facility] - Reported* Type Description Date Medical History Asthma - adult onset Medical HistoryAnemia - ironMedical HistoryHypertensionMedical HistoryOA - multiple jointsMedical HistoryAbsence seizuresMedical Historydvt left leg Surgical HistoryLow Back - L [id number] HistoryBreast Tumor - aituyi7800 Surgical HistoryBreast - lggktv5380Ucismslt HistoryEye - xxip8018Pwfjmqnz HistoryPalate and Mmmcvng1796Qagoapsf HistoryBilat total Cidx3532Aejtwrdd HistoryMultiple feet - bilat - neuromaSurgical HistoryLeft tafz6250Zbpbqknc HistoryLeft total tksbtabf52/2015Surgical HistoryRight shoulder - reverse total vvjrsuarxxy74/2016Surgical Historywart removal and bilateral great toenails removed/Dr. Gandhi04/2016Surgical Historyskin graft left knee01/2019Surgical Historycataract - right02/2020Hospitalization HistorySEE ABOVEHospitalization HistoryRespiratory ehekivbdr8191Rbznyhpxveutyge Historytrauma left knee after a fall11/2018 [facility] Other History general Narrative - ReportedNoShanghai Yinku network Other History general Narrative - ReportedNoShanghai Yinku network Other History general Narrative - Reported* Type Description Date Medical History Asthma - adult onset Medical HistoryAnemia - ironMedical HistoryHypertensionMedical HistoryOA - multiple jointsMedical HistoryAbsence seizuresMedical Historydvt left legMedical Historymyocardial infarction urgical HistoryLow Back - L Surgical HistoryBreast Tumor - bqxeta7689Sqnelred HistoryBreast - hxymoy9742 Surgical HistoryEye - temt6277Miyocisv HistoryPalate and Cttmbsq9788Ozyfqpuj HistoryBilat total Jayy6178Vgwcavzk HistoryMultiple feet - bilat - neuroma Surgical HistoryLeft bhfd9486Dqvdyfrc HistoryLeft total xhoiyjgc73/2015Surgical HistoryRight shoulder - reverse total nxluepxevze38/2016Surgical Historywart removal and bilateral great toenails removed/Dr. Gandhi04/2016Surgical History skin graft left knee01/2019Surgical Historycataract - right02/2020Surgical HistoryCardiac Stents x Hospitalization HistorySEE ABOVEHospitalization HistoryRespiratory tzucjdqie4526Obrmlwutgdjgkdy Historytrauma left knee after a fall11/2018Hospitalization HistoryHeart Stent x [facility] Other History general Narrative - Reported* Type Description Date Medical History Asthma - adult onset Medical HistoryAnemia - ironMedical HistoryHypertensionMedical HistoryOA - multiple jointsMedical HistoryAbsence seizuresMedical Historydvt left legMedical Historymyocardial infarction 11/2021Medical HistoryDVT distal right superficial femoral veinSurgical HistoryLow Back - L [id number] HistoryBreast Tumor - cylsid6389Jsicyfvz HistoryBreast - fkarjr3654Roedkrpo HistoryEye - zhss6146 Surgical HistoryPalate and Ckhimrp9812Kdophing HistoryBilat total Vpes1482 Surgical HistoryMultiple feet - bilat - neuromaSurgical HistoryLeft uapy8074 Surgical HistoryLeft total fsadhakz83/2015Surgical HistoryRight shoulder - reverse total msvbzfqndly78/2016Surgical Historywart removal and bilateral great toenails removed/Dr. Gandhi04/2016Surgical Historyskin graft left knee01/2019 Surgical Historycataract - right02/2020Surgical HistoryCardiac Stents x Hospitalization HistorySEE ABOVEHospitalization HistoryRespiratory [id number] Hospitalization Historytrauma left knee after a fall11/2018Hospitalization HistoryHeart Stent x Hospitalization HistoryDVT right distal superficial femoral vein06/2022 [facility] Other Hospital course Narrative No data available for this section [facility] No data available for this section [facility] Additional Instructions Elevate your lower extremities Follow-up with your PCP call tomorrow for appointment Please return here if you develop any chest pain, shortness of breath or any other concernsMercy Health Work Phone: Progress note No data available for this section [facility] for referral (narrative)* - Authorized SpecialtyDiagnoses / ProceduresReferred By ContactReferred To ContactPhysical Therapy Diagnoses Contusion of right foot, initial encounter Enthesopathy of foot Tendonitis, Achilles, left Calcaneal spur of left foot Acquired dysmorphic toenail Procedures CONSULT TO PHYSICAL THERAPY Hank Jauregui DPM [address] [place] [address] Referral IDStatCenterville DateExpiration DateVisits RequestedVisits [id number] * Diagnostic Procedure Only (Routine) - ClosedSpecialtyDiagnoses / Procedures Referred By ContactReferred To ContactXR IMAGING Diagnoses Contusion of right foot, initial encounter Enthesopathy of foot Tendonitis, Achilles, left Calcaneal spur of left foot Acquired dysmorphic toenail Procedures XR FOOT GENERAL 3V AP/LAT/OBL RIGHT RADEX FOOT COMPLETE MINIMUM 3 VIEWS Hank Jauregui DPM [address] [place] [address] Xr Imaging Referral IDStatCenterville DateExpiration DateVisits RequestedVisits [id number] Auto-Generated Referral / [facility] for referral (narrative)* Outpatient Procedure (Routine) - Pending ReviewSpecialtyDiagnoses / ProceduresReferred By ContactReferred To [facility] Diagnoses Nonspecific abnormal electroencephalogram (EEG) Procedures EPIL EEG LONG EEG EXTENDED MONITORING 61-119 MINUTES ELECTROENCEPHALOGRAM REC COMA/SLEEP ONLY Keisha Eller, YO.MANUFACTURERS REPRESENTATIVE [address] [place] [address] Neurological [place] [address] [place] [address] Referral IDStatCenterville DateExpiration DateVisits RequestedVisits [id number] Auto-Generated Referral / [facility] for referral (narrative)* Diagnostic Procedure Only (Routine) - ClosedSpecialtyDiagnoses / ProceduresReferred By ContactReferred To ContactXR IMAGING Diagnoses Pain Procedures XR FOOT GENERAL 3V AP/LAT/OBL LEFT RADEX FOOT COMPLETE MINIMUM 3 VIEWS Hank Jauregui DPM [address] [place] [address] [place] [address] Referral IDStatusReasonStart DateExpiration DateVisits RequestedVisits [id number] Auto-Generated Referral / [facility] for referral (narrative)* Diagnostic Procedure Only (Routine) - ClosedSpecialtyDiagnoses / ProceduresReferred By ContactReferred To ContactXR IMAGING Diagnoses Contusion of right foot, initial encounter Enthesopathy of foot Tendonitis, Achilles, left Calcaneal spur of left foot Acquired dysmorphic toenail Procedures XR FOOT GENERAL 3V AP/LAT/OBL RIGHT RADEX FOOT COMPLETE MINIMUM 3 VIEWS Hank Jauregui DPM [address] [place] [address] [place] [address] Referral IDStatusReasonStcrystal bay DateExpiration DateVisits RequestedVisits [id number] Auto-Generated Referral / [facility] for visit NarrativeVascular Surg Referral QuestionNocooper county memorial hospital Listen Edition Other Reason for visit [facility] Discharge summaryNocooper county memorial hospital Listen Edition Other Reason for visit Narrativecardiology concerns/referral requestGl[place] Listen Edition Other reason for visit Narrativecardio referral status requestGl[place] Listen Edition Other Reason for visit Narrative* Diagnostic Procedure Only (Routine) - ClosedSpecialtyDiagnoses / ProceduresReferred By ContactReferred To ContactXR IMAGING Diagnoses Pain Procedures XR FOOT GENERAL 3V AP/LAT/OBL LEFT RADEX FOOT COMPLETE MINIMUM 3 VIEWS Hank Jauregui DPM [address] [place] [address] [place] [address] Referral IDStatusReasonStart DateExpiration DateVisits RequestedVisits [id number] Auto-Generated Referral / [facility] for visit Narrative* Diagnostic Procedure Only (Routine) - ClosedSpecialtyDiagnoses / ProceduresReferred By ContactReferred To Contact XR IMAGING Diagnoses Contusion of right foot, initial encounter Enthesopathy of foot Tendonitis, Achilles, left Calcaneal spur of left foot Acquired dysmorphic toenail Procedures XR FOOT GENERAL 3V AP/LAT/OBL RIGHT RADEX FOOT COMPLETE MINIMUM 3 VIEWS Hank Jauregui DPM [address] [place] [address] [place] [address] Referral IDStatusReasonStart DateExpiration DateVisits RequestedVisits [id number] Auto-Generated Referral / [facility] for visit Narrative* Consultation (Routine) - Closed SpecialtyDiagnoses / ProceduresReferred By ContactReferred To ContactNeurology Diagnoses Nontraumatic subarachnoid hemorrhage, unspecified (CMS/HCC) Traumatic subdural hemorrhage with loss of consciousness status unknown, initial encounter ([facility]) Procedures MO OFFICE/OUTPATIENT NEW LOW MDM 30 MINUTES Hardeep Mckenzie MD [address] [facility] [address] [place] [address] Phone: tel: fax: Alberto Romero MD [address] [place] [address] Phone: tel: fax: Referral IDStatusReasonStart DateExpiration DateVisits RequestedVisits [id number] Consult and Treat / [facility] Summary Purpose Family History Relationship Condition Age at Onset Recorded Date/T ca father Malignant neoplasm of prostate Unknown Malignant neoplasm of boneUnknownNot SpecifiedMalignant neoplasm of breast UnknownbrotherMalignant neoplasm of colonUnknownbrotherMalignant neoplasm of prostateUnknown Unknown Family Member Name Dates Details No [...] neoplasm of prostate Unknown Malignant neoplasm of boneUnknownNot SpecifiedMalignant neoplasm of breast UnknownbrotherMalignant neoplasm of colonUnknownbrotherMalignant neoplasm of prostateUnknownbrotherHypertensionUnknownDiabetes mellitusUnknownMalignant neoplasmUnknownDeceasedUnknowndaughterAdoptedUnknownNot SpecifiedDeceasedUnknown natural sonAdoptedUnknownsisterDeceasedUnknown Relationship Condition Age at Onset Recorded Date/T ca father Malignant neoplasm of prostate Unknown Malignant neoplasm of boneUnknownDeceasedUnknownNot SpecifiedMalignant neoplasm of breastUnknownMalignant neoplasmUnknownbrotherMalignant neoplasm of colon UnknownbrotherMalignant neoplasm of prostateUnknownbrotherHypertensionUnknown Diabetes mellitusUnknowndaughterAdoptedUnknownMalignant neoplasm of breast Unknownnatural sonAdoptedUnknownsisterDeceasedUnknown Relationship Condition Age at Onset Recorded Date/T ca father Malignant neoplasm of prostate Unknown Malignant neoplasm of boneUnknownDeceasedUnknownmotherMalignant neoplasm of breastUnknownMalignant neoplasmUnknownbrotherMalignant neoplasm of colonUnknown brotherMalignant neoplasm of prostateUnknownbrotherHypertensionUnknownDiabetes mellitusUnknowndaughterAdoptedUnknownMalignant neoplasm of breastUnknownson AdoptedUnknownsisterDeceasedUnknown Advance Directives Date ActivatedDate InactivatedComments08/13/2023 2:10 AM08/24/2023 4:45 PMQuestion AnswerCommentsDocumentation of decision process for this code status:* Discussed with patient or surrogate. This is the code status chosen by the patient/surrogate. Date ActivatedDate InactivatedComments07/29/2023 4:47 PM08/04/2023 12:54 PM QuestionAnswerCommentsDocumentation of decision process for this code status:* Patient and surrogate unable or unavailable to discuss. There is no previous documentation of code status. Defaulting to Full Code Date ActivatedDate InactivatedComments07/29/2023 4:47 PM08/04/2023 12:54 PM QuestionAnswerCommentsDocumentation of decision process for this code status:* Patient and surrogate unable or unavailable to discuss. There is no previous documentation of code status. Defaulting to Full Code TypeDate RecordedPatient RepresentativeExplanationAdvance Directive(s)02/20/2020 8:50 AMDate ActivatedDate InactivatedComments05/03/2023 1:50 05/07/2023 6:27 PM QuestionAnswerCommentsFull Code Order Discussed With:* Patient TypeDate RecordedPatient RepresentativeExplanationAdvance Directives and Living WillPower of AttorneyCode StatusDate ActivatedDate InactivatedCommentsFull Code 12/14/2018 11:15 PM Advance Directive Response Recorded Date/ Time Advance Directives No January 11, 2017 10:18am Advance Directive Response Recorded Date/ Time Advance Directives No January 11, 2017 9:18am TypeDate RecordedPatient RepresentativeExplanationAdvance Directive(s)02/20/2020 8:50 AMCode StatusDate ActivatedDate InactivatedCommentsFull Code05/03/2023 1:50 PMQuestionAnswerCommentsFull Code Order Discussed With:PatientCode StatusDate ActivatedDate InactivatedCommentsFull Code05/03/2023 1:50 PM2 6:27 PM QuestionAnswerCommentsFull Code Order Discussed With:Patient Advance Directive Response Recorded Date/ Time Advance Directives No April 2:08pm Date ActivatedDate InactivatedComments05/03/2023 1:50 PM2 6:27 PMQuestion AnswerCommentsFull Code Order Discussed With:* Patient Date ActivatedDate InactivatedComments07/29/2023 4:47 PMDate ActivatedDate InactivatedComments07/29/2023 4:47 PMQuestionAnswerCommentsDocumentation of decision process for this code status:* Patient and surrogate unable or unavailable to discuss. There is no previous documentation of code status. Defaulting to Full Code Date ActivatedDate InactivatedComments08/13/2023 2:10 AMQuestionAnswerComments Documentation of decision process for this code status:* Discussed with patient or surrogate. This is the code status chosen by the patient/surrogate. Date ActivatedDate InactivatedComments07/29/2023 4:47 PM08/04/2023 12:54 PM QuestionAnswerCommentsDocumentation of decision process for this code status:* Patient and surrogate unable or unavailable to discuss. There is no previous documentation of code status. Defaulting to Full Code Date ActivatedDate InactivatedComments08/13/2023 2:10 AMDate ActivatedDate InactivatedComments08/13/2023 2:10 AM08/24/2023 4:45 PM Advance Directive Response Recorded Date/ Time Advance Directives No April 1:08pm Discharge Instructions * Discharge Instr - Activity* Erick Philip RN - 12/18/2018 4:20 PM [...] at most local grocery stores, pharmacies, and chain super-stores. ? If you have any questions about [...] Agent's Name Healthcare Agent's Phone Number 12/14/18 2313 No, patient does not have an advance directive for healthcare treatment -- -- -- -- -- Admitting Physician: Laurie Lemus DO PCP: HARDEEP MCKENZIE [facility] Discharging Unit Phone Number: [phone] Emergency Contact: Extended Emergency Contact Information Primary [...] Independent Dressing Independent Toileting Independent Feeding Independent Technical Trainer Assisted Med Delivery none and whole Wound [...] Readmission: 11 Discharging to Facility/ Agency Name: [facility] Address: Phone: Fax: Dialysis Facility (if applicable) Name: Address: Dialysis Schedule: Phone: Fax: Filter Assembler/Glass Installer Technician signature: ICIAN SECTION Prognosis: Good Condition at Discharge: Stable Rehab Potential (if transferring to Rehab): Good Recommended Labs or Other Treatments After Discharge: Antibiotics per ID Transition to oral therapy with doxycycline and Levaquin Wound care: follow-up outpatient at [facility] Orthopedic evaluation and f/u as scheduled May [...] surgeon please call the office of Dr. Markham - he was the orthopedic surgeon production honing machine operator at [place] when you are admitted. Call [phone] if you need help finding an orthopedic surgeon and/or plastic surgeon documented in this encounter History of Present Illness * Zulema Holguin APRN - MANUFACTURERS REPRESENTATIVE - 12/18/2018 4:36 PM EDT [facility] - Progress Note Today's Date and [...] patient to do. She lives close to [facility] Decision Making/Summary/Discussion:12/18/2018 Infection Control Recommendations [place] Precautions Antimicrobial Stewardship Recommendations Targeted therapy IV [...] November 10 she tripped and fell at [employer] injuring her left knee. A large hematoma [...] chills at that time. She reported to [facility] where she was then transferred to [facility] for further care. At the time [...] file Gets together: Not on file Attends congregational service: Not on file Active member of [...] is no joint effusion evident. Medical Decision Cnqwzv-Pdkoavvb-Uafsn: 12/16/2018 5:49 PM - BebetoEbony swain Incoming Lab Results From [facility] Specimen Information: Wound Component Collected Lab Specimen Description 12/15/2018 12:37 AM [facility] .WOUND LEFT Special Requests 12/15/2018 12:37 AM [...] data were reviewed Discussed with nursing Staff, corporate event planner Infection Control and Prevention measures reviewed All prior entries were reviewed Administer medications as ordered Prognosis: Good Discharge planning reviewed Follow up as outpatient. Thank you for allowing us to participate in the care of this patient. Please call with questions. YO ROJAS CNP Pager: - Office: * Nadia Clinton RD, LD - 12/18/2018 1:54 PM EDT Nutrition [...] 5. Fluid Accumulation-Mild fluid accumulation, Extremities 6. Dinkey Driver Strength-Not measured Nutrition Risk Level: Moderate Nutrient Needs: Estimated Daily Total Kcal: 5275-7945 kcal/day Estimated Daily Protein (g): 70-90 gm [...] Change: , No wt hx in EMR [place] Body Wt: 130 lb (59 kg), % [place] Body 151% BMI Classification: BMI 30.0 - [...] Bowel Function Contact Number: [phone] * Laurie Lemus DO - 12/18/2018 10:48 AM EDT [facility] IN-PATIENT SERVICE [facility] Progress Note 12/18/2018 10:55 AM Name: Carly Marcelino Acct: [id number] Room: IP Day: 4 Admit Date: 12/14/2018 [...] reviewed. Prior photo: Labs: Hematology: Recent Labs 12/16/1844212/17/1855512/18/18523 WBC 6.7 5.1 6.2 HGB 7.6* 8.1* 8.2* HCT 25.0* 26.3* 26.5* PLT 224 216 262 Chemistry: Recent Labs 12/16/1844212/17/1855512/18/18523 NA 138 137 140 K 4.4 4.0 4.0 CL 102 100 102 CO2 25 27 25 GLUCOSE 91 86 89 BUN 17 23 27* CREATININE 1.05* 1.04* 1.02* CALCIUM 8.5* 8.8 9.1 CAION -- 1.19 -- No results for input(s): PROT, LABALBU, LABA1C, B5PRNJP, Y7NTUBV, FT4, TSH, AST, ALT, LDH, GGT, ALKPHOS, BILITOT, BILIDIR, AMMONIA, AMYLASE, LIPASE, LACTATE, CHOL, TRIG, HDL, LDLCALC, LDLDIRECT, LABVLDL, BNP, TROPONINI, CKTOTAL, CKMB, CKMBINDEX in the last 72 hours. Lab Results Component Value Date/Time SPECIAL NOT REPORTED 12/15/2018 12:37 AM No results found for: POCPH, PHART, PH, POCPCO2, QGI6KFH, PCO2, POCPO2, PO2ART, PO2, POCHCO3, TTQ8ZYV, HCO3, NBEA, PBEA, BEART, BE, THGBART, THB, OID3KOB, TBFQ6TWY, N2LSSLBW, O2SAT, FIO2 Radiology: Xr Knee Left (3 [...] and Levaquin Wound care: follow-up outpatient at [facility] Orthopedic evaluation and f/u as scheduled May [...] Lemus DO 12/18/2018 10:55 AM * Saskia Marquez RN - 12/18/2018 8:45 AM EDT [facility] Wound Ostomy Nurse Follow up Note NAME: Carly Marcelino AGE: 78 y.o. GENDER: female : 1940 TODAY'S DATE: 12/18/2018 Subjective Reason for WOC Nurse Evaluation and Assessment: S/P evacuation / unroofing of hematoma of the left medial knee, performed at [facility] Wound Care. Had been receiving NPWT to [...] agent (see MAR) (GARRET toes to knee; 03/15 st Dakins) Wound Cleansed Wound cleanser (Dakins) Dressing Change [...] per consultants and would prefer referral to [facility] rather than return to [facility]. Specialty Bed Required : No [] Low Air Loss [] Pressure Redistribution [] Fluid Immersion [] Bariatric [] Total Pressure Relief [] Other: Current Diet: DIET GENERAL; Dietary Nutrition Supplements: Wound Healing Oral Supplement Discharge Plan: Placement for patient upon discharge: home with support Patient appropriate for Outpatient Wound Care Center: Yes Would prefer a referral to [facility] Patient/Caregiver Teaching: Level of patient/caregiver understanding able to: [] Indicates understanding [] Needs reinforcement [] Unsuccessful [x] Verbal Understanding [] Demonstrated understanding [] No evidence of learning [] Refused teaching [] N/A SASKIA GOLDBERG, RN, CWON * Polina Seay, [facility] - 12/17/2018 2:11 PM EDT Pharmacy Vancomycin [...] Seay, PharmD 12/17/2018 2:11 PM * Hebert Gaspar, OT - 12/17/2018 12:26 PM EDT Occupational [...] treated by the wound care clinic at [facility]. Approx. 1 week ago, she had the [...] serosang drainage present to the dressing that underwriter removed. Of note, the patient his history of bilateral knee replacements-- concerns with infection increased given hardware. Decision was made to trasnfer given integrity of wound and cellulitis. Patient was started on Vanco and Zosyn at [facility] and given 1L IVF. No leukocytosis or elevated procalcitonin noted on admit labs. ESR and CRP elevated, blood cultures collected at [facility]. Dopplers completed and DVT ruled out. Date [...] Ambulation Assistance: Independent Transfer Assistance: Independent Active Refrigeration Brazer/Solderer: Yes Occupation: Retired Objective Vision: Impaired Vision [...] & procurement, Self-Care / ADL AM-PAC Score AM-PAC Inpatient Daily Activity Raw Score: 19 (12/17/18 1226) AM-PAC Inpatient ADL T-Scale Score : 40.22 (12/17/18 1226) ADL Inpatient CMS 0-100% Score: 42.8 (12/17/18 1226) ADL Inpatient CMS G-Code Modifier : CK (12/17/18 122) Goals Short term goals Time Frame for Short term goals: by discharge, pt will Short term goal 1: demo I in UE ADL activities Short term goal 2: demo NV/I in LE ADL activities with AD as [...] ending therapy session. Hebert Gaspar OTR/L * Luarie Lemus, DO - 12/17/2018 11:58 AM EDT [facility] IN-PATIENT SERVICE [facility] Progress Note 12/17/2018 11:58 AM Name: Carly Marcelino Acct: [id number] Room: IP Day: 3 Admit Date: 12/14/2018 10:55 PM PCP: HARDEEP MCKENZIE Code Status: Full Code Subjective: C/C: Wound infection Interval History Status: Stable Pain at 06/19 Doing ok with diet Data Base Updates: [...] Hematology: Recent Labs 12/15/18 1025 12/16/18 0443 12/17/18 0556 WBC 6.4 6.7 5.1 HGB 7.7* 7.6* 8.1* HCT 25.5* 25.0* 26.3* PLT 232 224 216 INR 1.0 -- -- Chemistry: Recent Labs 12/15/18 1025 12/16/18 0443 12/17/18 0556 NA 138 138 137 K [...] results found for: POCPH, PHART, PH, POCPCO2, FLS4CDY, PCO2, POCPO2, PO2ART, PO2, POCHCO3, PEV5HXO, HCO3, NBEA, PBEA, BEART, BE, THGBART, THB, VSQ6YHA, FNIS0YCU, E9XJNPRT, O2SAT, FIO2 Radiology: Xr Knee Left (3 [...] DO 12/17/2018 11:58 AM * Tank Porras, COASTAL AND ESTUARY SPECIALIST - 12/17/2018 11:08 AM EDT Physical Therapy Facility/Department: [facility] 2 Daily Treatment Note NAME: Carly Marcelino : 1940 Date of Service: 12/17/2018 Discharge Recommendations: Further therapy recommended at discharge. PT Equipment Recommendations Equipment Needed: No Assessment Body structures, Functions, Activity limitations: Decreased functional mobility ;Decreased endurance Assessment: Pt ambulating 300ft w/RW SBA, steady but requires standing rest breaks, Pt reports thatelo has a hard time remembering to lift [...] 300 ft x2 Comments: Verbal cues to car pick up driver R foot Stairs/Curb Stairs?: Yes Stairs # [...] Lemus, DO - 12/16/2018 7:11 PM EDT [facility] IN-PATIENT SERVICE [facility] Progress Note 12/16/2018 7:22 PM Name: Carly Marcelino Acct: [id number] Room: IP Day: 2 Admit Date: 12/14/2018 [...] results found for: POCPH, PHART, PH, POCPCO2, SAK1WRY, PCO2, POCPO2, PO2ART, PO2, POCHCO3, WBU8JVR, HCO3, NBEA, PBEA, BEART, BE, THGBART, THB, LOS2LPK, ZNWX7ELG, W9SAWAXV, O2SAT, FIO2 Radiology: Xr Knee Left (3 [...] Marquez RN - 12/16/2018 11:30 AM EDT [facility] Ost[facility] Nurse Consult Note NAME: Carly Marcelino AGE: 78 y.o. GENDER: female : 1940 TODAY'S DATE: 12/16/2018 Subjective Reason for WOC Nurse Evaluation and Assessment: S/P evacuation / unroofing of hematoma of the left medial knee, performed at [facility] Wound Care. Had been receiving NPWT to [...] of Care: Recommend BID dressing changes with 03/15 st Dakins to decrease slough and bio- burden before resuming NPWT. Use of Dakins cleared with Ortho Service. Suggest she return to Wound Care Center for continued treatment with NPWT when appropriate. She hadsome reservation of returning to Wound Care and discussed feasibility of coming to [place] but is too far from home. Agreed she could reutrn to [facility] wound care Some discussion of Plastic Surgery [...] Outpatient Wound Care Center: Yes Current with [facility] Wound Care Patient/Caregiver Teaching: Level of patient/caregiver understanding able to: [] Indicates understanding [] Needs reinforcement [] Unsuccessful [x] Verbal Understanding [] Demonstrated understanding [] No evidence of learning [] Refused teaching [] N/A SASKIA GOLDBERG, RN, CWON * oJanna White RCP - 12/16/2018 10:49 AM EDT [...] able. JOANNA WHITE 10:49 AM * Maryuri Gracia, COASTAL AND ESTUARY SPECIALIST - 12/16/2018 10:03 AM EDT Physical Therapy Facility/Department: [facility] CAR 2 Daily Treatment Note NAME: [...] Moderate Nutrient Needs: Estimated Daily Total Kcal: 7288-5982 kcal/day Estimated Daily Protein (g): 70-90 gm [...] Wt: 196 lb 11.2 oz (89.2 kg) [place] Body Wt: 130 lb (59 kg), % [place] Body 151% BMI Classification: BMI 30.0 - 34.9 Obese Class I Nutrition Interventions: Continue current diet, Start ONS Continued Inpatient Monitoring, Education Not Indicated Nutrition Evaluation: Evaluation: Goals set Goals: Oral intakes to meet at least 75% of estimated nutrition needs. Monitoring: Meal Intake, Supplement Intake, Diet Tolerance, Skin Integrity, Wound Healing, I&O,Weight, Pertinent Labs, Monitor Bowel Function Contact Number: [phone] * Damien Del Rosario, PT - 12/15/2018 11:03 AM EDT Physical Therapy Facility/Department: [place] [address] Initial Assessment NAME: Carly Marcelino : 1940 [...] treated by the wound care clinic at [facility]. Approx. 1 week ago, she had the [...] serosang drainage present to the dressing that underwriter removed. Of note, the patient his history of bilateral knee replacements-- concerns with infection increased given hardware. Decision was made to trasnfer given integrity of wound and cellulitis. Patient was started on Vanco and Zosyn at [facility] and given 1L IVF. No leukocytosis or elevated procalcitonin noted on admit labs. ESR and CRP elevated, blood cultures collected at [facility]. Dopplers completed and DVT ruled out. Discharge [...] Ambulation Assistance: Independent Transfer Assistance: Independent Active Refrigeration Brazer/Solderer: Yes Occupation: Retired Cognition WNL Objective AROM [...] Minutes DAMIEN DEL ROSARIO PT * Dirk Pedro DO - 12/15/2018 10:07 AM EDT [facility] IN-PATIENT SERVICE [facility] Progress Note 12/15/2018 2:17 PM Name: Carly Marcelino Acct: [id number] Room: IP Day: 1 Admit Date: 12/14/2018 [...] results found for: POCPH, PHART, PH, POCPCO2, FHB7DDY, PCO2, POCPO2, PO2ART, PO2, POCHCO3, MOR3MWW, HCO3, NBEA, PBEA, BEART, BE, THGBART, THB, AFZ9IKM, IYAC9RHF, E1BAHLCF, O2SAT, FIO2 Lab Results Component Value Date/Time [...] IV stated maybe tomorrow. * Hank Weems [facility] - 12/15/2018 1:05 AM EDT Pharmacy Note [...] 15-20 mcg/mL Assessment/Plan: Patient transferred from [facility] where patient received vancomycin 1000 mg [...] Onset Date Resolution Status Chronic venous hypertension chronicEdema legchronicLymphedema of both lower extremitieschronicTraumatic woundchronic Chief Complaint and Reason for Visit Chief Complaint Left Knee Hematoma Z96.653 Z12.31 Open Wound Traumatic woundReason for VisitChronic venous hypertension Edema leg Lymphedema of both lower extremities Traumatic wound Chief Complaint i65.23 Chief Complaint Screening Chief Complaint I73.9 Chief Complaint M25.512 I65.23 Chief Complaint Screening 3 Weeks legs and feet tingle Chief Complaint legs and feet tingle Amb Documentation Amb Documentation Amb Documentation Hospital Follow Up- brain bleed 6 weeksReason for VisitSubarachnoid hemorrhage Blurred vision, bilateral Chief Complaint legs and feet tingle Amb Documentation Amb Documentation Amb Documentation Hospital Follow Up- brain bleed 6 weeks Amb Documentation Amb Documentation BP issuesReason for VisitSubarachnoid hemorrhage Blurred vision, bilateral Coronary artery disease Essential (primary) hypertension Subarachnoid hemorrhage Chronic venous hypertension Lymphedema of both lower extremities Chief Complaint legs and feet tingle Amb Documentation Amb Documentation Amb Documentation Hospital Follow Up- brain bleed 6 weeks Amb Documentation Amb Documentation BP issues Amb Documentation Amb Documentation 9 month follow upReason for VisitSubarachnoid hemorrhage Blurred vision, bilateral Coronary artery disease Essential (primary) hypertension Subarachnoid hemorrhage Chronic venous hypertension Lymphedema of both lower extremities Anxiety Chief Complaint legs and feet tingle Amb Documentation Amb Documentation Amb Documentation Hospital Follow Up- brain bleed 6 weeks Amb Documentation Amb Documentation BP issues Amb Documentation Amb Documentation 9 month follow up hospital follow upReason for VisitSubarachnoid hemorrhage Blurred vision, bilateral Coronary artery disease Essential (primary) hypertension Subarachnoid hemorrhage Chronic venous hypertension Lymphedema of both lower extremities Anxiety Chief Complaint Amb Documentation Amb Documentation BP issues Amb Documentation Amb Documentation 9 month follow up hospital follow up Amb Documentation 2 monthReason for VisitAnxiety Anxiety Essential (primary) hypertension Hyponatremia Coronary artery disease Essential (primary) hypertension Subarachnoid hemorrhage Chronic venous hypertension Lymphedema of both lower extremities History of head injury Chief Complaint hospital follow up Amb Documentation 2 month [facility] dischargeReason for VisitAnxiety Essential (primary) hypertension Hyponatremia Coronary artery disease Essential (primary) hypertension Subarachnoid hemorrhage Chronic venous hypertension Lymphedema of both lower extremities History of head injury Subarachnoid hemorrhage Chief Complaint 2 month [facility] discharge Amb Documentation Amb Documentation Hospital F/UReason for VisitCoronary artery disease Essential (primary) hypertension Subarachnoid hemorrhage Chronic venous hypertension Lymphedema of both lower extremities History of head injury Subarachnoid hemorrhage Chief Complaint 2 month [facility] discharge Amb Documentation Amb Documentation Hospital F/U 3 weeksReason for VisitCoronary artery disease Essential (primary) hypertension Subarachnoid hemorrhage Chronic venous hypertension Lymphedema of both lower extremities History of head injury Subarachnoid hemorrhage Subarachnoid hemorrhage Back pain Tremor Chief Complaint [facility] di scharge Amb Documentation Amb Documentation Hospital F/U 3 weeks I60.9 Amb DocumentationReason for VisitSubarachnoid hemorrhage Subarachnoid hemorrhage Back pain Tremor Subarachnoid hemorrhage Chief Complaint Admit Date Hospital F/U November 07, 2023 2: 04pm 3 weeks November 28, 2023 2:12pm I60.9 December 05, 2023 1:44pm Amb Documentation December 06, 2023 1:11pm Amb Documentation December 10, 2023 9:13am Amb Documentation December 11, 2023 9: 56am Urinary incontinence/left great toe Caridade mbabigail 2023 2:43pm Reason for Visit Admit Date Subarachnoid hemorrhage November 06 2:04pm Back pain November 07, 2023 2: 04pm Tremor November 07, 2023 2: 04pm Subarachnoid hemorrhage November 28, 2023 2:12pm Urinary incontinence January 21, 2024 2:43pm Chief Complaint Admit Date Hospital F/U November 07, 2023 2: 04pm 3 weeks November 28, 2023 2:12pm I60.9 December 05, 2023 1:44pm Amb Documentation December 06, 2023 1:11pm Amb Documentation December 10, 2023 9:13am Amb Documentation December 11, 2023 9: 56am Urinary incontinence/left great toe Caridade mber 2023 2:43pm 3 Months January 22, 2024 2:38pm Reason for Visit Admit Date Subarachnoid hemorrhage November 06 2:04pm Back pain November 07, 2023 2: 04pm Tremor November 07, 2023 2: 04pm Subarachnoid hemorrhage November 28, 2023 2:12pm Anxiety January 21, 2024 2:43pm Difficulty in walking January 20 2:43pm Essential (primary) hypertension Novembe r 2023 2:43pm Urinary incontinence January 21, 2024 2:43pm Coronary artery disease January 21, 2 024 2:38pm Essential (primary) hypertension Novem r 2023 2:38pm Subarachnoid hemorrhage January 21, 2 024 2:38pm Chronic venous hypertension January 2:38pm Lymphedema of both lower extremities Jan emb2023 2:38pm History of head injury January 21 2:38pm Chief Complaint Admit Date Urinary incontinence/left great toe Caridade mbabigail 2023 2:43pm 3 Months January 22, 2024 2:38pm cough, sinus February 18, 2024 3 :55pm Amb Documentation March 10, 2024 11:50am Z12.39 March 13, 2024 12 :33pm Reason for Visit Admit Date Anxiety January 21, 2024 2:43pm Difficulty in walking January 20 2:43pm Essential (primary) hypertension Novembe r 2023 2:43pm Urinary incontinence January 21, 2024 2:43pm Coronary artery disease January 21, 2 024 2:38pm Essential (primary) hypertension Novembe r 2023 2:38pm Subarachnoid hemorrhage January 21, 2 024 2:38pm Chronic venous hypertension January 2:38pm Lymphedema of both lower extremities Jan 2:38pm History of head injury January 21 2:38pm Sinusitis February 18, 2024 3 :55pm Chief Complaint Admit Date Urinary incontinence/left great toe Nove [facility] 2023 2:43pm 3 Months January 22, 2024 2:38pm cough, sinus February 18, 2024 3 :55pm Amb Documentation March 10, 2024 11:50am Z12.39 March 13, 2024 12 :33pm wellness check/left side flank pain Kevin haines 2024 10:16am Reason for Visit Admit Date Anxiety January 21, 2024 2:43pm Difficulty in walking January 20 2:43pm Essential (primary) hypertension Novembe r 2023 2:43pm Urinary incontinence January 21, 2024 2:43pm Coronary artery disease January 21, 2 024 2:38pm Essential (primary) hypertension Novembe r 2023 2:38pm Subarachnoid hemorrhage January 21, 2 024 2:38pm Chronic venous hypertension January 2:38pm Lymphedema of both lower extremities Jan 2:38pm History of head injury January 21 2:38pm Sinusitis February 18, 2024 3 :55pm Subarachnoid hemorrhage March 21 10:16am Subdural hematoma caused by concussion J anuary 2024 10:16am Chief Complaint Admit Date cough, sinus February 18, 2024 3 :55pm Amb Documentation March 10, 2024 11:50am Z12.39 March 13, 2024 12 :33pm wellness check/left side flank pain Kevin haines 2024 10:16am Amb Documentation April 15, 2024 1 :44pm 1 year follow up; Carotid U/S at 1:00pm April 22, 2024 1:02pm Reason for Visit Admit Date Sinusitis February 18, 2024 3 :55pm Subarachnoid hemorrhage March 21 10:16am Subdural hematoma caused by concussion J anuary 2024 10:16am Medicare annual wellness visit, john barakat March 21, 2024 10:16am Reason for Visit Admit Date Sinusitis February 18, 2024 3 :55pm Subarachnoid hemorrhage March 21 10:16am Subdural hematoma caused by concussion J anuary 2024 10:16am Medicare annual wellness visit, john barakat March 21, 2024 10:16am Bilateral carotid artery stenosis Februa 2024 1:02pm Former smoker April 22, 2024 1:02pm Chief Complaint Admit Date Amb Documentation March 10, 2024 11:50am Z12.39 March 13, 2024 12 :33pm wellness check/left side flank pain Kevin haines 2024 10:16am Amb Documentation April 15, 2024 1 :44pm 1 year follow up; Carotid U/S at 1:00pm April 22, 2024 1:02pm Amb Documentation April 25, 2024 10:12am Amb Documentation May 01, 2024 9:19am HR pt- Med wellness May 21, 2024 3:0 8pm Reason for Visit Admit Date Subarachnoid hemorrhage March 21 10:16am Subdural hematoma caused by concussion J anuary 2024 10:16am Medicare annual wellness visit, john barakat March 21, 2024 10:16am Bilateral carotid artery stenosis ua 2024 1:02pm Former smoker April 22, 2024 1:02pm Chief Complaint Admit Date Amb Documentation May 01, 2024 9:19am HR pt- Med wellness May 21, 2024 3:0 8pm 6 months July 22, 2024 1:19p m Reason for Visit Admit Date Medicare annual wellness visit, john barakat May 21, 2024 3:08pm Coronary artery disease July 22, 2024 1 :19pm Essential (primary) hypertension July 1:19pm Subarachnoid hemorrhage July 22, 2024 1 :19pm Chronic venous hypertension July 22 1:19pm Lymphedema of both lower extremities July 22, 2024 1:19pm History of head injury July 22, 2024 1: 19pm Chief Complaint Admit Date HR pt- Med wellness May 21, 2024 3:0 8pm 6 months July 22, 2024 1:19p m Follow Up August 05, 2024 2:28p m Reason for Visit Admit Date Medicare annual wellness visit, john barakat May 21, 2024 3:08pm Coronary artery disease July 22, 2024 1 :19pm Essential (primary) hypertension July 1:19pm Subarachnoid hemorrhage July 22, 2024 1 :19pm Chronic venous hypertension July 22 1:19pm Lymphedema of both lower extremities July 22, 2024 1:19pm History of head injury July 22, 2024 1: 19pm Subarachnoid hemorrhage August 05, 2024 2 :28pm Subdural hematoma caused by concussion M ay 2024 2:28pm Skin lesion of right leg August 05, 2024 2:28pm Abrasion of left forearm, initial encoun ter August 05, 2024 2:28pm Chief Complaint * [facility]/ [facility]. * CARLY MARCELINO is being seen for follow-up of a hospitalization for. * 81-year-old white female who I saw recently at [facility] for unstable angina and underwent diagnostic [...] for CAD was emphasized. Cardiac rehab at [facility] is scheduled. * 2 hypertension, currently under [...] limitations of physical activities. Medications Administered Section Medication OrderMAR ActionAction DateDoseRateSite fluorescein-benoxinate 0.25-0.4 % 1 Drop (FLURESS) 1 Drop, BOTH EYES, DIRECTED, Starting on Sun12/27/21 at 1330, Until Sun12/28/21 at 0129, Administer for applanation tonometry. In the event of a Fluress shortage, administer 1 drop of [place]-Fluorinto both eyes as directed for applanation tonometry., [facility] CLINIC MED ORDERS Given12/27/2021 1:30 PM EDT1 Drop PHENYLephrine 2.5 % 1 Drop (AK-DILATE, PUMA-SYNEPHRINE) 1 Drop, BOTH EYES, DIRECTED, Starting on Sun12/27/21 at 1330, Until Sun12/28/21 at 0129, Administer for dilation PROTECT FROM LIGHT, [facility] CLINIC MED ORDERS Given12/27/2021 1:30 PM EDT1 Drop proparacaine 0.5 % 1 Drop (ALCAINE) 1 Drop, BOTH EYES, DIRECTED, Starting on Sun12/27/21 at 1330, Until Sun12/28/21 at 0129, Administer for pneumo tonometry, tonopen tonometry, or pachymetry. In the event of a proparacaine shortage, administer 1 drop of tetracaine 0.5% ophthalmic drops into both eyes as directed for pneumo tonome try, tonopen tonometry, or pachymetry, [facility]INIC MED ORDERS Given12/27/2021 1:30 PM EDT1 Drop tropicamide 1 % 1 Drop (MYDRIACYL) 1 Drop, BOTH EYES, DIRECTED, Starting on Sun12/27/21 at 1330, Until Sun12/28/21 at 0129, Administer for dilation, [facility] CLINIC MED ORDERS Given12/27/2021 1:30 PM EDT1 Drop Reason for Referral SpecialtyDiagnoses / ProceduresReferred By ContactReferred To ContactUrology Diagnoses Postoperative urinary retention Kunz catheter in place Kymberly Cabrera APRN-CNP [address] [place] [address] Referral IDStatusReasonStart DateExpiration DateVisits RequestedVisits [id number]/20/20246/20/202533 Comments S/p SDH katty holes crani 08/11 developed retention post-op kunz removed today after discussion and wishes to follow up closer to home, SpecialtyDiagnoses / ProceduresReferred By ContactReferred To ContactGerontology Diagnoses Polypharmacy Derick Edwards APRN-CNP [address] [place] [address] [facility] GERIATRICS [address] [place] [address] Ref[facility]Status[facility] DateExpiration DateVisits RequestedVisits [id number] Review Scheduling Instructions Please call to schedule an appointment. SpecialtyDiagnoses / ProceduresReferred By ContactReferred To ContactRadiology Diagnoses SDH (subdural hematoma) (HCC) Procedures CT HEAD W/O CONTRAST Derick Edwards APRN-CNP [address] [place] [address] [facility] CT SCAN Referral IDStatus[facility] DateExpiration DateVisits RequestedVisits [id number]/14/20246/14/365895OzkdhyhfdOhlznkvam / Procedures Referred By ContactReferred To ContactNeurology Diagnoses Encephalopathy Derick Edwards APRN-CNP [address] [place] [address] [facility] [address] [place], [place] [id number] Referral IDStatusReasonStart DateExpiration DateVisits RequestedVisits [id number]/14/20246/14/202533 Scheduling Instructions Please call the Neurology Clinic at to schedule an appointment if one was not made for you today. QuestionAnswer Patient to be evaluated for: Traumatic Brain Injury Sequelae Comments Dr. Franco; patient previously seen inpatient with Dr. Yuan SpecialtyDiagnoses / ProceduresReferred By ContactReferred To ContactUrology Diagnoses Urinary retention Derick Edwards, FLOW MACHINE OPERATOR-MANUFACTURERS REPRESENTATIVE [address] [place] [address] [facility] UROLOGIC SURGERY [address] [place] [address] Referral IDStatusReasonStart DateExpiration DateVisits RequestedVisits [id number]/14/20246/14/202533 Scheduling Instructions Please call the Urology department at , option 1 to schedule an appointment if one was not made for you today. QuestionAnswer Reason for Referral Kunz Catheter [7] SpecialtyDiagnoses / ProceduresReferred By ContactReferred To ContactRadiology Diagnoses Subdural hematoma (HCC) Procedures CT HEAD W/O CONTRAST Amadoujune, FLOW MACHINE OPERATOR-MANUFACTURERS REPRESENTATIVE [address] [place] [address] [facility] CT SCAN Referral IDStatusReasonStart DateExpiration DateVisits RequestedVisits [id number]/21/20245/742115IuydrbevbYsfnzllpv / Procedures Referred By ContactReferred To ContactNeurology Diagnoses SAH (subarachnoid hemorrhage) (HCC) Procedures CONSULT TO NEUROLOGY OFFICE/OUTPATIENT [facility] 60 MINUTES Christopher Casarez, 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 [address] [place] [address] Referral IDStatusReasonStart DateExpiration DateVisits RequestedVisits [id number] PCP Requested Referral [id number] / ProceduresReferred By ContactReferred To ContactPsychology Diagnoses SAH (subarachnoid hemorrhage) (HCC) Anxiety attack Procedures CONSULT TO PSYCHOLOGY OFFICE/OUTPATIENT NEW HIGH MDM 60 MINUTES Christopher Casarez, 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 [address] [place] [address] Referral IDStatusReasonStart DateExpiration DateVisits RequestedVisits [id number] Review PCP Requested Referral [id number] / ProceduresReferred By ContactReferred To ContactREHAB AND SPORTS THERAPY INS Diagnoses SAH (subarachnoid hemorrhage) (HCC) Anxiety attack Physical deconditioning Procedures CONSULT TO PHYSICAL THERAPY PHYSICAL THERAPY EVALUATION HIGH COMPLEX 45 MINS FaChristopher gloria, 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 [address] [place] [address] [facility] [place] [address] [place] [address] Referral IDStatusReasonStcrystal bay DateExpiration DateVisits RequestedVisits [id number] PCP Requested Referral Auto-Generated Referral [id number] / ProceduresReferred By ContactReferred To ContactMR IMAGING Diagnoses Nontraumatic subarachnoid hemorrhage (HCC) Procedures MRI BRAIN WO/W IVCON MRI BRAIN BRAIN STEM W/O W/CONTRAST MATERIAL Delfin Dow, 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 [address] [facility] [address] [place] [address] [place] [address] Referral IDStatusReasonStcrystal bay DateExpiration DateVisits RequestedVisits [id number] Review Auto-Generated Referral Additional Source Comments INFORMATION SOURCE (unrecogn ized section and content) DATE CREATED AUTHOR 09/10/2017 [facility] DATE CREATED AUTHOR AUTHOR'S ORGANIZ ATION 12/21/[address] [facility] DATE CREATED AUTHOR AUTHOR'S ORGANIZ ATION 02/10/2022 [facility] DATE CREATED AUTHOR AUTHOR'S ORGANIZ ATION 05/24/2022 [facility] DATE CREATED AUTHOR AUTHOR'S ORGANIZ ATION 12/21/2022 [facility] DATE CREATED AUTHOR AUTHOR'S ORGANIZ ATION 05/11/2023 [facility] DATE CREATED AUTHOR AUTHOR'S ORGANIZ ATION 07/31/2023 [facility] DATE CREATED AUTHOR AUTHOR'S ORGANIZ ATION 08/12/2023 [facility] DATE CREATED AUTHOR AUTHOR'S ORGANIZ ATION 08/29/2023 [facility] DATE CREATED AUTHOR AUTHOR'S ORGANIZ ATION 09/29/2023 [facility] DATE CREATED AUTHOR AUTHOR'S ORGANIZ ATION 10/06/2023 [facility] DATE CREATED AUTHOR AUTHOR'S ORGANIZ ATION 10/09/2023 [facility] DATE CREATED AUTHOR AUTHOR'S ORGANIZ ATION 10/10/2023 [facility] DATE CREATED AUTHOR AUTHOR'S ORGANIZ ATION 10/12/2023 [facility] DATE CREATED AUTHOR AUTHOR'S ORGANIZ ATION 10/13/2023 [facility] DATE CREATED AUTHOR AUTHOR'S ORGANIZ ATION 10/15/2023 [facility] DATE CREATED AUTHOR AUTHOR'S ORGANIZ ATION 10/19/2023 [facility] DATE CREATED AUTHOR AUTHOR'S ORGANIZ ATION 10/20/2023 [facility] DATE CREATED AUTHOR AUTHOR'S ORGANIZ ATION 11/03/2023 [facility] DATE CREATED AUTHOR AUTHOR'S ORGANIZ ATION 01/13/2024 [facility] DATE CREATED AUTHOR AUTHOR'S ORGANIZ ATION 01/14/2024 [facility] DATE CREATED AUTHOR AUTHOR'S ORGANIZ ATION 03/10/2024 [facility] DATE CREATED AUTHOR AUTHOR'S ORGANIZ ATION 04/13/2024 [facility] DATE CREATED AUTHOR AUTHOR'S ORGANIZ ATION 05/01/2024 [facility] DATE CREATED AUTHOR AUTHOR'S ORGANIZ ATION 05/27/2024 [facility] DATE CREATED AUTHOR AUTHOR'S ORGANIZ ATION 05/28/2024 [facility] DATE CREATED AUTHOR AUTHOR'S ORGANIZ ATION 09/26/2024 [facility] DATE CREATED AUTHOR AUTHOR'S ORGANIZ ATION 11/23/2024 [facility] DATE CREATED AUTHOR AUTHOR'S ORGANIZ ATION 12/16/2024 [facility] DATE CREATED AUTHOR AUTHOR'S ORGANIZ ATION 01/11/2025 [facility] DATE CREATED AUTHOR AUTHOR'S ORGANIZ ATION 01/13/2025 [facility] DATE CREATED AUTHOR AUTHOR'S ORGANIZ ATION 01/13/2025 [facility] [employer] Reason for Visit (unrecogniz ed section and content) StatusReasonSpecialtyDiagnoses / ProceduresReferred By ContactReferred To Contact Diagnoses Left leg cellulitis left leg cellulitis Laurie Lemus DO [facility] [place] [id number] [facility] ReasonCommentsRetinal arterial macroaneurysmsReasonCommentsDizzinessReason CommentsPalpitationsRed Rash FaceReasonCommentsRadiology XRReasonCommentsPain Established PatientReasonOnset DateCommentsCare Coordinator - Hospital Follow Up 05/09/2023Endovascular TOCReasonCommentsBlurred Vision Both EyesReasonComments ResultsReasonCommentsNew PatientSeizuresEpilepsyReasonCommentsSymptomsBlood pressure is highReasonCommentsmedication concernseizure medsReasonComments Hospital Follow UpReasonCommentsEstablished Patient Follow-UpSubarachnoid HemorrhageReasonCommentsTrauma/complex Medical SituationSpecialtyDiagnoses / ProceduresReferred By ContactReferred To ContactEmergency Medicine Diagnoses Traumatic subdural hemorrhage with loss of consciousness status unknown, initial encounter TRAUMA fall, subdural bleed with shift Procedures NO [employer] [place] [address] Phone: [phone] [place] [address] Phone: [phone] Referral IDStatusReasonStart DateExpiration DateVisits RequestedVisits [id number] Care ManagementCare Coordination ReasonCommentsSNF/HospiceCare CoordinationTransition Of CareMedical Record ReviewReasonCommentsTrauma 2SpecialtyDiagnoses / ProceduresReferred By Contact Referred To ContactHospital Medicine Diagnoses AMS change SDH with midline shift Procedures NA Gavino Cotter MD [address] [place] [address] [facility] [address] [place] [address] Phone: [phone] Referral IDStatusReasonStart DateExpiration DateVisits RequestedVisits [id number] patient, to establish relationshipOther sympt/complt bladderfoleySpecialtyDiagnoses / ProceduresReferred By Contact Referred To ContactUrology Diagnoses Urinary retention Derick Edwards APRN-CNP [address] [place] [address] [facility] UROLOGIC SURGERY [address] [place] [address] Referral IDStatusReasonStcrystal bay DateExpiration DateVisits RequestedVisits [id number]/14/20246/346317WwzkjqWwwencloJtja Op Check SpecialtyDiagnoses / ProceduresReferred By ContactReferred To ContactRadiology Diagnoses SDH (subdural hematoma) (HCC) Procedures CT HEAD W/O CONTRAST Derick Edwards APRN-CNP [address] [place] [address] [facility] CT SCAN Referral IDStatusReasonStart DateExpiration DateVisits RequestedVisits [id number]/14/20246/863730EquyrsEczyg DateCommentsPreparations For Tnobdopzcs86/08/2024ReasonCommentsPosterior Capsule Opacification Follow Up Cataract Follow UpReasonCommentsYAG POST OPRight Eye 09.18.23ReasonOnset Date Commentsrequesting call back4ReasonCommentsPost-op Follow-upReason AvtaubgqBuxwhdlc10 day mRSReasonCommentsMonitoring/follow-upSpecialtyDiagnoses / ProceduresReferred By ContactReferred To ContactNeurology Diagnoses Encephalopathy Derick Edwards, FLOW MACHINE OPERATOR-MANUFACTURERS REPRESENTATIVE [address] [place] [address] Phone: tel: fax: [facility] [address] [place] [address] Phone: tel: Referral IDStatusReasonStart DateExpiration DateVisits RequestedVisits [id number]/14/20246/[id number] CareReason CommentsBack symptoms/complaintsTransfer from [facility]. Exacerbation of t12 spine fracture and urinary incontinence Care Teams (unrecognized sec tion and content) Personnel Name: HARDEEP MCKENZIE DO Address: [address] [place] [address] Telecom: Name: Coleen Meza Name: Chastity Lopez LPN Name: Kourtney Lay Team Status: Inactive Member Role Status Dates Hardeep Mckenzie DO Primary Care Provider, Attending Provider Active Team Status: Active Member Role Status Dates Hardeep Mckenzie DO Primary Care Provider Active Team Status: Inactive Member Role Status Dates Hardeep Mckenzie DO Primary Care Provider Active Royce Douglas MDAttjordan ProviderActiveTeam MemberRelationshipSpecialty Start DateEnd Date Hardeep Mckenzie DO [address] [place] [id number] PCP - GeneralFamily Medicine07/05/15Team MemberRelationshipSpecialtyStart DateEnd Date Hardeep Mckenzie DO [address] [place] [phone] PCP - GeneralFamily Medicine07/05/15Team MemberRelationshipSpecialtyStart DateEnd Date Hardeep Mckenzie DO [address] [place] [address] PCP - GeneralFamily Medicine07/05/15 Team Status: Inactive Member Role Status Dates Hardeep Mckenzie DO Primary Care Provider Active Lena Morrison ProviderActive Team Status: Inactive Member Role Status Dates [...] Active Start: April 30, 2023 End: April 30Sanna Aguilera ProviderActiveStart: April 30, 2023 End: April 30, 2023Team MemberRelationshipSpecialtyStart DateEnd Date Hardeep Mckenzie DO [address] [address] PCP - GeneralFamily Medicine07/05/15Team MemberRelationshipSpecialtyStart DateEnd Date Hardeep Mckenzie DO [address] [address] PCP - GeneralFamily Medicine07/05/15Team MemberRelationshipSpecialtyStart DateEnd Date Hardeep Mckenzie DO [address] [address] PCP - GeneralFamily Medicine07/05/15Team MemberRelationshipSpecialtyStart DateEnd Date Hardeep Mckenzie DO [address] [address] PCP - GeneralFamily Medicine07/05/15 Team Status: Active Member Role Status Dates [...] Care Provider Active Start: May 08, 2023 Cortes Arredondo ProviderActiveStart: May 08, 2023 Team Status: Active Member Role Status Dates Hardeep Mckenzie DO Primary Care Provider Active Start: May 14, 2023 Sarah [place] ProviderActiveStart: May 14, 2023 Team Status: Inactive Member Role Status Dates Hardeep Mckenzie DO Primary Care Provid er, Attending Provider Active Start: May 14, 2023 End: May 14, 2023 Team Status: Inactive Member Role Status Dates Hardeep Mckenzie DO Primary Care Provider Active Start: May 30, 2023 End: May 30, 2023Lena Soares ProviderActiveStart: May 30, 2023 End: May 30, 2023Team MemberRelationshipSpecialtyStart DateEnd Date Hardeep Mckenzie DO [address] [address] PCP - [facility] Medicine07/05/15Team MemberRelationshipSpecialtyStart DateEnd Date Hardeep Mckenzie DO [address] [address] PCP - [facility] Medicine07/05/15 Team Status: Active Member Role Status Dates Hardeep Mckenzie DO Primary Care Provider Active Start: June 05, 2023 Cheri Mame , MICHAELNAtleticiaenio ProviderActiveStart: June 05, 2023 Team Status: Active Member Role Status Dates Hardeep Mckenzie DO Primary Care Provider Active Start: June 13, 2023 Cheriesmer Vilchis LPNAtleticiaenio ProviderActiveStart: June 13, 2023 Team Status: Inactive Member Role Status Dates Hardeep Mckenzie DO Primary Care Provider Active Start: June 19, 2023 End: June 19, 2023Gececilia Jewell MDAttjordan ProviderActiveStart: June 19, 2023 End: June 19, 2023Team MemberRelationshipSpecialtyStart DateEnd Date Hardeep Mckenzie DO [address] [address] PCP - [facility]07/05/15 Team Status: Active Member Role Status Dates Hardeep Mckenzie DO Primary Care Provider Active Start: June 22, 2023 Sarah [place] ProviderActiveStart: June 22, 2023 Team Status: Active Member Role Status Dates Hardeep Mckenzie DO Primary Care Provider Active Start: June 25, 2023 Cheriesmer Vilchis LPNAtleticiaenio ProviderActiveStart: June 25, 2023 Team Status: Inactive Member Role Status Dates Hardeep Mckenzie DO Primary Care Provid er, Attending Provider Active Start: June 28, 2023 End: June 28, 2023Team MemberRelationshipSpecialtyStart DateEnd Date Hardeep Mckenzie DO [address] [address] PCP - [facility]07/05/15 Team Status: Inactive Member Role Status Dates Hardeep Mckenzie DO Primary Care Provid er, Attending Provider Active Start: July 16, 2023 End: July 16, 2023 Team Status: Active Member Role Status Dates Theodora Rodriguez MD Bridal Gown Fitter Active Mary Alice Fallon Care ProviderActive Team Status: Active Member Role Status Dates Hardeep Mckenzie DO Primary Care Provider Active Start: July 17, 2023 Sarah Weeks ProviderActiveStart: July 17, 2023 Team Status: Active Member Role Status Dates Hardeep Mckenzie DO Primary Care Provider Active Start: August 08, 2023 Jazmin Mcneal MDAttending ProviderActiveStart: August 08, 2023 Team Status: Inactive Member Role Status Dates Hardeep Mckenzie DO Primary Care Provider Active Start: September 03, 2023 End: September 03, 2023Theodora Rodriguez MDAttending ProviderActiveStart: September 03, 2023 End: September 03, 2023Team MemberRelationshipSpecialtyStart DateEnd Date Hardeep Mckenzie DO [address] [address] [facility] - [facility]/15Team MemberRelationshipSpecialtyStart DateEnd Date Hardeep Mckenzie DO [address] [address] PCP - [facility] Medicine07/05/15Team MemberRelationshipSpecialtyStart DateEnd Date Hardeep Mckenzie DO [address] [address] PCP - [facility] Medicine07/05/15 Team Status: Active Member Role Status Dates Theodora Rodriguez MD Bridal Gown Fitter Active Mindi Mcintosh [facility]ITALTremaine ManagerActiveMray Alice Fallon Care Rachel Active Team Status: Active Member Role Status Dates Haredep Mckenzie DO Primary Care Provider Active Start: September 08, 2023 Royce Santana DOAttending ProviderActiveStart: September 08, 2023 Team Status: Inactive Member Role Status Dates Hardeep Mckenzie DO Primary Care Provid er, Attending Provider Active Start: October 01, 2023 End: October 01, 2023Team MemberRelationshipSpecialtyStart DateEnd Date Kymberly Cabrera APRN-DOMINGO [address] [place] [address] APNUrology09/15/23Team MemberRelationshipSpecialtyStart DateEnd Date Kymberly Cabrera APRN-DOMINGO [address] [place], [place] [phone] APNUrology09/15/23Team MemberRelationshipSpecialtyStart DateEnd Date Kymberly Cabrera APRN-DOMINGO [address] [place], [place] [phone] APNUrology09/15/23 Team Status: Active Member Role Status Dates Hardeep Mckenzie DO Primary Care Provider Active Start: September 09, 2023 Chuy Gonzalez ProviderActiveStart: September 09, 2023 Team Status: Active Member Role Status Dates Hardeep Mckenzie DO Primary Care Provider Active Start: October 01, 2023 Sarah [place] ProviderActiveStart: October 01, 2023 Team Status: Active Member Role Status Dates Hardeep Mckenzie DO Primary Care Provider Active Start: October 02, 2023 Sarah [place] ProviderActiveStart: October 02, 2023 Team Status: Inactive Member Role Status Dates Hardeep Mckenzie DO Primary Care Provid er, Attending Provider Active Start: November 07, 2023 End: November 07, 2023Team MemberRelationshipSpecialtyStart DateEnd Date Kymberly Cabrera APRN-CNP [address] [place] [address] APNUrology09/15/23 Team Status: Inactive Member Role Status Dates Hardeep Mckenzie DO Primary Care Provid er, Attending Provider Active Start: November 28, 2023 End: November 28, 2023Team MemberRelationshipSpecialtyStart DateEnd Date Magaly Hardeep Toni [address] [address] PCP - [facility]07/05/15Team MemberRelationshipSpecialtyStart DateEnd Date Hardeep Mckenzie [address] [address] PCP - [facility]07/05/15 Team Status: Inactive Member Role Status Dates Hardeep Mckenzie DO Primary Care Provid er, Attending Provider Active Start: December 05, 2023 End: December 05, 2023 Team Status: Active Member Role Status Dates Hardeep Mckenzie DO Primary Care Provider Active Start: December 06, 2023 Sarah [place] ProviderActiveStart: December 06, 2023 Team MemberRelationshipSpecialtyStart DateEnd Date Hardeep Mckenzie DO [address] [address] PCP - [facility]07/05/15 Team Status: Active Member Role Status Dates Hardeep Mckenzie DO Primary Care Provider Active Start: December 10, 2023 Sarah Weeks ProviderActiveStart: December 10, 2023 Team Status: Active Member Role Status Dates Hardeep Mckenzie DO Primary Care Provider Active Start: December 11, 2023 Sarah [place] ProviderActiveStart: December 11, 2023 Team Status: Active Member Role Status Dates Hardeep Mckenzie DO Primary Care Provid er, Attending Provider Active Start: January 11, 2024 Team Status: Inactive Member Role Status Dates Hardeep M. Magaly , DO Primary Care Provid er, Attending Provider Active Start: January 21, 2024 End: January 21, 2024 Team Status: Inactive Member Role Status Dates Hardeep Mckenzie DO Primary Care Provider Active Start: January 22, 2024 End: January 22, 2024Theodora Belloge Lena ProviderActiveStart: January 22, 2024 End: January 22, 2024Team MemberRelationshipSpecialtyStart DateEnd Date Hardeep Mckenzie MD [address] [phone] [facility]/17/22 Team Status: Inactive Member Role Status Dates Hardeep Mckenzie DO Primary Care Provid er, Attending Provider Active Start: February 18, 2024 End: February 18, 2024 Team Status: Active Member Role Status Dates Hardeep Mckenzie DO Primary Care Provider Active Start: March 10, 2024 Sarah [place]ira ProviderActiveStart: March 10, 2024 Team Status: Inactive Member Role Status Dates Hardeep Mckenzie DO Primary Care Provid er, Attending Provider Active Start: March 13, 2024 End: March 13, 2024 Team Status: Inactive Member Role Status Dates Hardeep Mckenzie DO Primary Care Provid er, Attending Provider Active Start: March 21, 2024 End: March 21, 2024Team MemberRelationshipSpecialtyStart DateEnd Date Hardeep Mckenzie MD [address] [phone] [facility] - [facility]08/17/22 Aniket Childress DO [address] [place] [address] Referring PhysicianNeurolog04/21/24Team MemberRelationshipSpecialtyStart DateEnd Date Hardeep Mckenzie MD [address] [facility] [address] [place] [phone] [facility]/22 Aniket Childress DO [address] [place] [address] Referring PhysicianNeurology2 Team Status: Active Member Role Status Dates Theodora Rodriguez MD Bridal Gown Fitter Active Mad[facility] ManagerActiveGEN Fallonrimary Care Provider Active Team Status: Active Member Role Status Dates Hardeep Mckenzie DO Primary Care Provider Active Start: April 15, 2024 Madai Barajas ProviderActiveStart: April 15, 2024 Team Status: Inactive Member Role Status Dates Hardeep Mckenzie DO Primary Care Provider Active Start: April 22, 2024 End: April 22, 2024Lena Mejia ProviderActiveStart: April 22, 2024 End: April 22, 2024 Team Status: Active Member Role Status Dates Madai Cruz Clinical Coder Active JIMBO SoaresardiologistActiveHardeep Mckenzie , GENrijhonatany Care Provider Active Team Status: Active Member Role Status Dates Hardeep Mckenzie DO Primary Care Provider Active Start: April 25, 2024 Sarah [place] ProviderActiveStart: April 25, 2024 Team Status: Active Member Role Status Dates Hardeep Mckenzie DO Primary Care Provider Active Start: May 01, 2024 Madai Barajas ProviderActiveStart: May 01, 2024 Team Status: Inactive Member Role Status Dates Hardeep Mckenzie DO Primary Care Provid er, Attending Provider Active Start: May 21, 2024 End: May 21, 2024Team MemberRelationshipSpecialtyStart DateEnd Hardeep Valdez MD [address] [phone] PCP - Generalm[facility]08/17/22 Aniket Childress DO [address] [place] [address] Referring PhysicianNeurolog04/21/24 Team Status: Active Member Role Status Dates Hardeep Mckenzie DO Primary Care Provid er, Attending Provider Active Start: May 26, 2024 Team Status: Inactive Member Role Status Dates Hardeep Mckenzie DO Primary Care Provider Active Start: July 22, 2024 End: July 22, 2024Linda MichaelLyly hortonending ProviderActiveStart: July 22, 2024 End: July 22, 2024Team MemberRelationshipSpecialtyStart DateEnd Date Kymberly Cabrera APRN-CNP [address] [place] [address] APNUrology09/15/23 Artem Li MD [address] [place] [address] PhysicianNeurosurgery11/17/23 Team Status: Inactive Member Role Status Dates Hardeep Mckenzie DO Primary Care [facility] er, Attending Provider Active Start: August 05, 2024 End: August 05, 2024Team MemberRelationshipSpecialtyStart DateEnd Date Hardeep Mckenzie MD [address] [phone] [facility] - [facility]08/21/24 Aniket Childress DO Referring PhysicianNeurolog04/21/24Team MemberRelationshipSpecialtyStart DateEnd Date Hardeep Mckenzie MD [address] [phone] PCP - Generalmily Medicine08/21/24 Aniket Childress DO Referring PhysicianNeurolog04/21/24Team MemberRelationshipSpecialtyStart DateEnd Hardeep Mckenzie MD [address] [place] [phone] [facility] - [facility]08/21/24 Aniket Childress DO Referring PhysicianNeurolog04/21/24Team MemberRelationshipSpecialtyStart DateEnd Date Hardeep Mckenzie MD [address] [place] [phone] [facility] - [facility]08/21/24 Aniket Childress DO Referring PhysicianNeurolog04/21/24Team MemberRelationshipSpecialtyStart DateEnd Kymberly Cabrera, YO-DOMINGO [address] [place], [place] [phone] APNUrology09/15/23 Artem Li MD [address] [place] [phone] PhysicianNeurosurgery11/17/23 Ronald Franco MD [address] [place] [phone] PhysicianNeurology08/16/24Team MemberRelationshipSpecialtyStart DateEnd Date Kymberly Cabrera APRN-CNP [address] [place] [address] APNUrology09/15/23 Artem Li MD [address] [place], [place] [phone] PhysicianNeurosurgery11/17/23 Ronald Franco MD [address] [place] [address] PhysicianNeurology08/16/24Team MemberRelationshipSpecialtyStart DateEnd Date Kymberly Cabrera APRN-CNP [address] [place] [address] APNUrology09/15/23 Artem Li MD [address] [place], [place] [phone] PhysicianNeurosurgery11/17/23 Ronald Franco MD [address] [place], [place] [phone] PhysicianNeurology08/16/24 Goals (unrecognized section and content) Goals may be documented in a n alternate section Source Comments (unrecognize d section and content) In the event this informatio n is protected by the Federal Confidentiality of Alcohol and Drug Abuse Patient Records regulations: The Federal rules restrict any use of the information to criminally investigate or prosecute any alcohol or drug abuse patient.[facility] HospitalIn the event this information is protected by the Federal Confidentiality of Alcohol and Drug Abuse Patient Records regulations: The Federal rules restrict any use of the information to criminally investigate or prosecute any alcohol or drug abuse patient.[facility] HospitalIn the event this information is protected by the Federal Confidentiality of Alcohol and Drug Abuse Patient Records regulations: The Federal rules restrict any use of the information to criminally investigate or prosecute any alcohol or drug abuse patient.[facility] HospitalIn the event this information is protected by the Federal Confidentiality of Alcohol and Drug Abuse Patient Records regulations: The Federal rules restrict any use of the information to criminally investigate or prosecute any alcohol or drug abuse patient.[facility] HospitalIn the event this information is protected by the Federal Confidentiality of Alcohol and Drug Abuse Patient Records regulations: The Federal rules restrict any use of the information to criminally investigate or prosecute any alcohol or drug abuse patient.[facility] HospitalIn the event this information is protected by the Federal Confidentiality of Alcohol and Drug Abuse Patient Records regulations: The Federal rules restrict any use of the information to criminally investigate or prosecute any alcohol or drug abuse patient.[facility] HospitalIn the event this information is protected by the Federal Confidentiality of Alcohol and Drug Abuse Patient Records regulations: The Federal rules restrict any use of the information to criminally investigate or prosecute any alcohol or drug abuse patient.[facility] HospitalIn the event this information is protected by the Federal Confidentiality of Alcohol and Drug Abuse Patient Records regulations: The Federal rules restrict any use of the information to criminally investigate or prosecute any alcohol or drug abuse patient.[facility] HospitalIn the event this information is protected by the Federal Confidentiality of Alcohol and Drug Abuse Patient Records regulations: The Federal rules restrict any use of the information to criminally investigate or prosecute any alcohol or drug abuse patient.[facility] HospitalIn the event this information is protected by the Federal Confidentiality of Alcohol and Drug Abuse Patient Records regulations: The Federal rules restrict any use of the information to criminally investigate or prosecute any alcohol or drug abuse patient.[facility] HospitalIn the event this information is protected by the Federal Confidentiality of Alcohol and Drug Abuse Patient Records regulations: The Federal rules restrict any use of the information to criminally investigate or prosecute any alcohol or drug abuse patient.[facility] HospitalIn the event this information is protected by the Federal Confidentiality of Alcohol and Drug Abuse Patient Records regulations: The Federal rules restrict any use of the information to criminally investigate or prosecute any alcohol or drug abuse patient.[facility] HospitalIn the event this information is protected by the Federal Confidentiality of Alcohol and Drug Abuse Patient Records regulations: The Federal rules restrict any use of the information to criminally investigate or prosecute any alcohol or drug abuse patient.[facility] HospitalIn the event this information is protected by the Federal Confidentiality of Alcohol and Drug Abuse Patient Records regulations: The Federal rules restrict any use of the information to criminally investigate or prosecute any alcohol or drug abuse patient.[facility] HospitalIn the event this information is protected by the Federal Confidentiality of Alcohol and Drug Abuse Patient Records regulations: The Federal rules restrict any use of the information to criminally investigate or prosecute any alcohol or drug abuse patient.[facility] HospitalIn the event this information is protected by the Federal Confidentiality of Alcohol and Drug Abuse Patient Records regulations: The Federal rules restrict any use of the information to criminally investigate or prosecute any alcohol or drug abuse patient.[facility] HospitalIn the event this information is protected by the Federal Confidentiality of Alcohol and Drug Abuse Patient Records regulations: The Federal rules restrict any use of the information to criminally investigate or prosecute any alcohol or drug abuse patient.[facility] HospitalIn the event this information is protected by the Federal Confidentiality of Alcohol and Drug Abuse Patient Records regulations: The Federal rules restrict any use of the information to criminally investigate or prosecute any alcohol or drug abuse patient.[facility] HospitalIn the event this information is protected by the Federal Confidentiality of Alcohol and Drug Abuse Patient Records regulations: The Federal rules restrict any use of the information to criminally investigate or prosecute any alcohol or drug abuse patient.[facility] HospitalIn the event this information is protected by the Federal Confidentiality of Alcohol and Drug Abuse Patient Records regulations: The Federal rules restrict any use of the information to criminally investigate or prosecute any alcohol or drug abuse patient.[facility] Inactive Administered Medications - up to 3 most recent administrations Administered Medications (un recognized section and content) Medication OrderMAR ActionAction DateDoseRateSite lactated ringers 500 mL iv bolus 500 mL, INTRAVENOUS, at 500 mL/hr, Administer over 1 Hours, ONCE, 1 dose, On Angely 05/03/23 at 1230 CCT Only: New Bag (No Charge)05/03/2023 12:30 PM [id number] mL500 mL/hr Scheduled Active and Recently Administ ered Medications (unrecognized section and content) Medication Order08/01/// acetaminophen (TYLENOL) tablet 650 mg, Oral, Every 6 hours, First dose on Sun07/29/23 at 1718, Until Discontinued * 0100 (Hold/Not Given - Provider: Billie Lopez RN - Reason: Patient sleeping) * 0552 (Given - Provider: Billie Lopez RN) * 1200 (Hold/Not Given - Provider: Trish Oconnor RN - Reason: Patient refused) * 1841 (Given - Provider: Trish Oconnor RN) * 0045 (Hold/Not Given - Provider: Yodit Gracia LPN - Reason: Patient sleeping) * 0600 (Hold/Not Given - Provider: Jeffery Washington RN - Reason: Patient refused) * 0811 (Given - Provider: Ester Jiménez RN) * 1553 (Given - Provider: Lisset Polanco RN) * 0647 (Given - Provider: Yodit Gracia LPN) * 1200 (Due - Provider: Anahy Stahl) * 1800 (Due - Provider: Anahy Stahl) * 2200 (Due - Provider: Yodit Gracia LPN) atorvastatin (LIPITOR) tablet 10 mg, Oral, DAILY, First dose (after last modification) on Sun08/01/23 at 0900, Until Discontinued * 0959 (Given - Provider: Trish Oconnor RN) * 0811 (Given - Provider: Ester Jiménez RN) * 0929 (Given - Provider: John Vick RN) enoxaparin (LOVENOX) 30 MG/0.3ML injection 30 mg 30 mg, Subcutaneous, 2 TIMES DAILY, First dose on Sun07/31/23 at 2200, Until Discontinued * 0959 (Given - Provider: Trish Oconnor RN) * 2110 (Given - Provider: Yodit Gracia LPN) * 08 (Given - Provider: Ester Jiménez RN) * 2102 (Given - Provider: Yodit Gracia LPN) * 0929 (Given - Provider: John Vick RN) * 2099 (Due) ferrous sulfate tablet TABS 325 mg, Oral, DAILY, First dose on Sun08/02/23 at 1030, Until Discontinued * 0959 (Given - Provider: Trish Oconnor RN) * 0811 (Given - Provider: Ester Jiménez RN) * 0929 (Given - Provider: John Vick RN) gabapentin (NEURONTIN) capsule 300 mg, Oral, 3 TIMES DAILY, First dose on Sun08/03/23 at 1630, Until Discontinued * 1553 (Given - Provider: Lisset Polanco RN) * 2102 (Given - Provider: Yodit Gracia LPN) * 0647 (Given - Provider: Yodit Gracia LPN) * 1400 (Due) * 2200 (Due) guaifenesin (MUCINEX) 600 MG 12 hour tablet 1,200 mg, Oral, 2 TIMES DAILY, First dose on Sun08/02/23 at 1030, Until Discontinued * 0959 (Given - Provider: Trish Oconnor RN) * 2110 (Given - Provider: Yodit Gracia LPN) * 0811 (Given - Provider: Ester Jiménez RN) * 2102 (Given - Provider: Yodit Gracia LPN) * 0930 (Given - Provider: John Vick RN) * 2100 (Due) levETIRAcetam (KEPPRA) tablet 750 mg 750 mg, Oral, 2 TIMES DAILY, 8 doses, First dose (after last modification) on Sun08/01/23 at 2100, Last dose on Sun08/05/23 at 0900 * 0959 (Given - Provider: Trish Oconnor RN) * 2110 (Given - Provider: Yodit Gracia LPN) * 0811 (Given - Provider: Ester Jiménez RN) * 2102 (Given - Provider: Yodit Gracia LPN) * 0930 (Given - Provider: John Vick RN) * 2099 (Due) losartan (COZAAR) tablet 50 mg, Oral, DAILY, First dose on Sun08/02/23 at 1030, Until Discontinued * 1030 (Hold/Not Given - Provider: Trish Oconnor RN - Reason: Not indicated) * 0811 (Given - Provider: Ester Jiménez RN) * 0930 (Given - Provider: John Vick RN) magnesium oxide (MAG-OX) 400 mg (240 mg) tablet 400 mg, Oral, DAILY, First dose on Sun08/02/23 at 1030, Until Discontinued * 0959 (Given - Provider: Trish Oconnor RN) * 0811 (Given - Provider: Ester Jiménez RN) * 0930 (Given - Provider: John Vick RN) melatonin tablet 3 mg, Oral, AT BEDTIME, First dose on Sun07/31/23 at 2200, Until Discontinued * 2110 (Given - Provider: Yodit Gracia LPN) * 2102 (Given - Provider: Yodit Gracia LPN) * 2199 (Due) metoprolol (LOPRESSOR) split tablet 12.5 mg, Oral, 2 TIMES DAILY, First dose on Sun07/30/23 at 1630, Until Discontinued * 0959 (Given - Provider: Trish Oconnor RN) * 2110 (Given - Provider: Yodit Gracia LPN - Comment: BP 148/71 MAP 95; HR 86) * 08 (Given - Provider: Ester Jiménez RN) * 2102 (Given - Provider: Yodit Gracia LPN - Comment: BP 136/63 MAP 81; HR 74) * 0931 (Given - Provider: John Vick RN) * 2099 (Due) polyethylene glycol (MIRALAX) 17 g packet 17 g, Oral, DAILY, First dose on Sun07/31/23 at 0900, Until Discontinued * 0959 (Given - Provider: Trish Oconnor RN) * 0811 (Given - Provider: Ester Jiménez RN) * 0928 (Given - Provider: John Vick RN) senna (SENOKOT) tablet 8.6 mg, Oral, AT BEDTIME, First dose on 07/29/23 at 2200, Until Discontinued * 2110 (Given - Provider: Yodit Gracia LPN) * 2051 (Hold/Not Given - Provider: Yodit Gracia LPN - Reason: Patient refused - Comment: pt statesshe has been having regular bowel movements) * 2199 (Due) sertraline (ZOLOFT) tablet (CANCELED) 25 mg, Oral, DAILY, First dose on Angely 08/02/23 at 1030, Until Discontinued * 0959 (Given - Provider: Trish Oconnor RN) * 0811 (Hold/Not Given - Provider: Ester Jiménez RN - Reason: Patient refused) Medication Order08/01//// albuterol (PROVENTIL HFA) 108 (90 Base) MCG/ACT HFA inhaler 1 Puff, Inhalation, EVERY 4 HOURS PRN, Starting on Angely 08/02/23 at 0941, Until Discontinued, Shortness of Breath, Wheezing * 0615 (Given - Provider: Aniket Hines, RT) bisacodyl (DULCOLAX) 10 MG suppository 10 mg, Rectal, DAILY PRN, Starting on 07/29/23 at 1647, Until Discontinued, Constipation LORazepam (ATIVAN) tablet 1 mg, Oral, EVERY 8 HOURS PRN, Starting on 07/30/23 at 2036, Until Discontinued, Anxiety magnesium hydroxide (MILK OF MAGNESIA) 400 MG/5ML oral suspension 30 mL, Oral, DAILY PRN, Starting on Sun08/01/23 at 1104, Until Discontinued, Constipation oxyCODONE (ROXICODONE) 5 mg/5 mL oral solution 2.5 mg, Oral, EVERY 4 HOURS PRN, Starting on 07/29/23 at 1647, Until Discontinued, Moderate Pain(pain score 4,5,6) oxyCODONE immediate release tablet 5 mg, Oral, EVERY 4 HOURS PRN, Starting on Sun07/29/23 at 1647, Until Discontinued, Severe Pain (pain score 7,8,9,10) Medication Order08/21/// acetaminophen (TYLENOL) tablet 650 mg, Oral, Every 6 hours, First dose (after last modification) on Sun08/17/23 at 1130, Until Discontinued * 0025 (Given - Provider: Jana Carreon RN) * 0629 (Given - Provider: Jana Carreon RN) * 1159 (Given - Provider: Isaura Black, RN) * 1716 (Given - Provider: Isaura Black RN) * 2302 (Given - Provider: Marisol Britton RN) * 0553 (Given - Provider: Marisol Britton RN) * 1153 (Given - Provider: Vickie Goff, CARLOS) * 1730 (Given - Provider: Vickie Goff RN) * 2316 (Given - Provider: Shital Rodrigez LPN) * 0543 (Given - Provider: Shital Rodrigez LPN) * 1321 (Given - Provider: Alberto Philip RN) * 1730 (Due) * 2330 (Due) amantadine (SYMMETREL) 50 MG/5ML oral syrup 100 mg, NG Tube, 2 TIMES DAILY, First dose on Sun08/23/23 at 2230, Until Discontinued * 2316 (Given - Provider: Shital Rodrigez LPN) * 1054 (Given - Provider: Alberto Philip RN) * 2100 (Due) amantadine (SYMMETREL) capsule (CANCELED) 100 mg, Oral, 2 TIMES DAILY, First dose on Sun08/18/23 at 2000, Until Discontinued * 0831 (Given - Provider: Isaura Black RN) * 2302 (Given - Provider: Marisol Britton RN) * 0943 (Given - Provider: Vickie Goff RN) * 2100 (Hold/Not Given - Provider: Shital Rodrigez LPN - Reason: Not indicated) atorvastatin (LIPITOR) tablet 40 mg, Oral, AT BEDTIME, First dose on Sun08/13/23 at 2200, Until Discontinued * 2302 (Given - Provider: Marisol Britton RN) * 2121 (Given - Provider: Shital Rodrigez LPN) * 2200 (Due) chlorhexidine (PERIDEX) 0.12 % oral solution 15 mL, Swish & Spit, 2 TIMES DAILY, First dose on Sun08/17/23 at 1600, Until Discontinued * 0832 (Given - Provider: Isaura Black RN) * 2303 (Given - Provider: Marisol Britton RN) * 0945 (Given - Provider: Vickie Goff, RN) * 2137 (Given - Provider: Shital Rodrigez LPN) * 1106 (Given - Provider: Alberto Philip, RN) * 2100 (Due) doxazosin (CARDURA) tablet 4 mg, Oral, DAILY, First dose on Sun08/16/23 at 1430, Until Discontinued * 0831 (Given - Provider: Isaura Black RN) * 0943 (Given - Provider: Vcikie Goff RN) * 1054 (Given - Provider: Alberto Philip, RN) folic acid 1 MG tablet 1 mg, Oral, DAILY, 3 doses, First dose on Sun08/24/23 at 0900, Last dose on Sun08/26/23 at 0900 * 1054 (Given - Provider: Alberto Philip, RN) heparin (porcine) 5000 UNIT/0.5ML injection 5,000 Units, Subcutaneous, EVERY 8 HOURS, First dose on Sun08/17/23 at 1130, Until Discontinued * 0430 (Given - Provider: Jana Carreon RN) * 1159 (Given - Provider: Isaura Black, RN) * 2302 (Given - Provider: Marisol Britton, CARLOS) * 0943 (Given - Provider: Vickie Goff RN) * 1730 (Given - Provider: Vickie Goff RN) * 0150 (Given - Provider: Shital Rodrigez LPN) * 1054 (Given - Provider: Alberto Philip, RN) * 1730 (Due - Provider: Deborah Rodriguez [facility]) levETIRAcetam (KEPPRA) 100 MG/ML oral solution 500 mg, Oral, 2 TIMES DAILY, First dose on Sun08/19/23 at 0330, Until Discontinued * 0831 (Given - Provider: Isaura Black RN) * 2302 (Given - Provider: Marisol Britton RN) * 0943 (Given - Provider: Vickie Goff RN) * 2120 (Given - Provider: Shital Rodrigez LPN) * 1054 (Given - Provider: Alberto Philip, RN) * 2100 (Due) lisinopril (ZESTRIL) tablet 5 mg, Oral, DAILY, First dose (after last modification) on Sun08/17/23 at 0900, Until Discontinued * 0831 (Given - Provider: Isaura Black RN) * 0943 (Given - Provider: Vickie Goff RN) * 1054 (Given - Provider: Alberto Philip RN) losartan (COZAAR) tablet 50 mg, Oral, DAILY, First dose (after last modification) on Sun08/14/23 at 1700, Until Discontinued * 0831 (Given - Provider: Isaura Black RN) * 0943 (Given - Provider: Vickie Goff RN) * 1054 (Given - Provider: Alberto Philip RN) magnesium sulfate 2 GM/50ML in 50 mL ivpb (COMPLETED) 2 g (2,000 mg), Intravenous, ONCE, 1 dose, On Sun08/22/23 at 1900 * 195 (IV New Bag - Provider: Isaura Black RN) multivitamins with minerals (CEROVITE) oral liquid 15 mL, NG Tube, DAILY, First dose on Sun08/16/23 at 1430, Until Discontinued * 0831 (Given - Provider: Isaura Black RN) * 0943 (Given - Provider: Vickie Goff RN) * 1054 (Given - Provider: Alberto Philip, RN) polyethylene glycol (MIRALAX) 17 g packet 17 g, Oral, DAILY, First dose on Sun08/16/23 at 1430, Until Discontinued * 0831 (Given - Provider: Isaura Black RN) * 0900 (Hold/Not Given - Provider: Vickie Goff RN - Reason: Not indicated) * 1046 (Hold/Not Given - Provider: Alberto Philip RN - Reason: Not indicated) senna (SENOKOT) tablet 8.6 mg, Oral, AT BEDTIME, First dose on Sun08/13/23 at 2200, Until Discontinued * 1999 (Hold/Not Given - Provider: Marisol Britton RN - Reason: Not indicated) * 2301 (Given - Provider: Marisol Britton, CARLOS) * 2120 (Given - Provider: Shital Rodrigez LPN) * 2199 (Due) Medication Order// TUBE FEED (CANCELED) NG Tube, at 15-45 mL/hr, CONTINUOUS, Starting on Sun08/23/23 at 2200, Until Sun08/24/23 at 1237, Tube Feeding: No Meal Tray, Tube feeding formula: Nutren 1.5, Method of Administration? Pump * 2199 (Feeding Start - Provider: Shital Rodrigez LPN) TUBE FEED NG Tube, at 15-45 mL/hr, CONTINUOUS, Starting on Sun08/24/23 at 1330, Until Discontinued, Tube Feeding: With Meal Tray, Specify Diet: Regular, Tube feeding formula: Nutren 1.5, Method of Administration? Pump * 1330 (Feeding Start - Provider: Alberto Philip RN) Medication Order// albuterol (PROVENTIL HFA) 108 (90 Base) MCG/ACT HFA inhaler 2 Puff, Inhalation, EVERY 4 HOURS PRN, Starting on Sun08/13/23 at 0211, Until Discontinued, Shortness of Breath, Wheezing bisacodyl (DULCOLAX) 5 MG enteric coated tablet 10 mg, Oral, DAILY PRN, Starting on Sun08/13/23 at 0206, Until Discontinued, Constipation Medication Order10/06//// acetaminophen (TYLENOL) tablet (COMPLETED) 1,000 mg, Oral, STAT, 1 dose, On Sun10/08/23 at 1831 * 1809 (Given - Provider: Rain Ervin RN) albuterol (PROVENTIL) (2.5 MG/3ML) 0.083% nebulizer solution (COMPLETED) 2.5 mg, Nebulization, ONCE, 1 dose, On Sun10/08/23 at 2022 * 2015 (Given - Provider: Rain Ervin RN) amoxicillin-clavulanate (AUGMENTIN) 875-125 MG per tablet (COMPLETED) 1 Tablet, Oral, STAT, 1 dose, On Sun10/08/23 at 2024 * 2014 (Given - Provider: Rain Ervin RN) gabapentin (NEURONTIN) capsule (COMPLETED) 300 mg, Oral, ONCE, 1 dose, On Sun10/08/23 at 2022 * 2014 (Given - Provider: Rain Ervin RN) methocarbamol (ROBAXIN) tablet (COMPLETED) 500 mg, Oral, ONCE, 1 dose, On Sun10/08/23 at 2022 * 2016 (Given - Provider: Rain Ervin RN) Medication Order/ cefTRIAXone (ROCEPHIN) 1,000 mg in sodium chloride 9.6 mL IV push (COMPLETED) 1,000 mg, Intravenous, Once, 1 dose, On 01/11/25 at 1112 * 1055 (IV New Bag - Provider: Amilcar Burgess, RN) * 1058 (IV Stop - Provider: Amilcar Burgess, CARLOS) cetirizine (ZyrTEC) tablet (COMPLETED) 10 mg, Oral, Once, 1 dose, On 01/11/25 at 1038 * 1049 (Given - Provider: Amilcar Burgess, RN) gabapentin (NEURONTIN) capsule (COMPLETED) 300 mg, Oral, Once, 1 dose, On 01/11/25 at 1038 * 1049 (Given - Provider: Amilcar Burgess, CARLOS) FOR RECORDS PERTAINING TO PATIENTS WHO ARE [...] BE BASED ON THE PRIMARY CLINICAL RECORDS. [employer] provides no warranty or guarantee of the accuracy or completeness of information in this document.
--- NOTE | 2025-01-14 11:48 | PM.CN ---
Consult Note: HPI Data of Consult Patient: known to practice within the last 3 years Requesting Physician: Zuleima Valdivia NP Primary Care Provider: HARDEEP SUÁREZ Consult Narrative Reason for consult: f/u Narrative: Carly Marcelino a pleasant 84 year old female presents for evaluation of chronic low back pain unresponsive to > 6 weeks of HEP, heat, ice, tylenol, NSAIDs. longstanding hx of low back pain > 1 year secondary to lumbar ddd, lumbar stenosis, and lumbar spondylosis. pain today 2/10 increasing to 4/10 at times. status post bilateral L5-S1 TFESI with >50% improvement ongoing. Patient was evaluated by [facility] ER and admitted to the hospital since last visit as we advised her to go to the ER when she reported loss of bladder after her TFESI, per the pt the hospitaled ruled out complications and prescribed antiobiotics for UTI but we do not have any records at this time cc:: CC: Zuleima Valdivia NP Review of Systems ROS Musculoskeletal Reports: back pain PFSH PFSH Medical History Osteoarthritis ?M19.90 - Unspecified osteoarthritis, unspecified site (ICD-10) Seizure ?R56.9 - Unspecified convulsions (ICD-10) Asthma ?J45.909 - Unspecified asthma, uncomplicated (ICD-10) HTN (hypertension) ?I10 - Essential (primary) hypertension (ICD-10) Surgical History History of foot surgery ?Z98.890 - Other specified postprocedural states (ICD-10) History of total knee arthroplasty ?Z96.659 - Presence of unspecified artificial knee joint (ICD-10) History of tonsillectomy and adenoidectomy ?Z90.89 - Acquired absence of other organs (ICD-10) History of pharyngoplasty ?Z98.890 - Other specified postprocedural states (ICD-10) History of back surgery ?Z98.890 - Other specified postprocedural states (ICD-10) History of breast biopsy ?Z98.890 - Other specified postprocedural states (ICD-10) History of total shoulder replacement ?Z96.619 - Presence of unspecified artificial shoulder joint (ICD-10) Meds Home Medications and Allergies Home Medications ?Medication ?Instructions ?Recorded ?Confirmed ?Type cetirizine 10 mg tablet (24Hour 10 mg PO DAILY 09/08/23 01/05/25 History Allergy) docusate sodium 100 mg capsule 100 mg PO BID 09/08/23 01/05/25 History (Col-Rite) ferrous sulfate 325 mg (65 mg 325 mg PO DAILY 09/08/23 01/05/25 History iron) tablet (FeroSul) gabapentin 300 mg capsule 300 mg PO Q8H 09/08/23 01/05/25 History lisinopril 5 mg tablet 5 mg PO BEDTIME 09/08/23 01/05/25 History metoprolol tartrate 50 mg tablet 50 mg PO BID 09/08/23 01/05/25 History (Lopressor) montelukast 10 mg tablet 10 mg PO DAILY 09/08/23 01/05/25 History pravastatin 20 mg tablet 40 mg PO BEDTIME 09/08/23 01/05/25 History baclofen 5 mg tablet 5 mg 11/26/24 History tramadol 50 mg tablet 50 mg PO PRN 11/26/24 01/05/25 History tramadol 50 mg tablet See Rx Instructions .Route 12/18/24 01/05/25 Rx .COMPLEX PRN pain #75 tabs Allergies Allergy/AdvReac Type Severity Reaction Status Date / Time alcohol (From Mastisol AdvReac Mild RASH Verified 01/05/25 09:46 Adhesive) amlodipine AdvReac Mild UNKNOWN Verified 01/05/25 09:46 carbamazepine AdvReac Mild UNKNOWN Verified 01/05/25 09:46 divalproex sodium (From AdvReac Mild Unknown Verified 01/05/25 09:46 Depakote) gum mastic (From Mastisol AdvReac Mild UNKNOWN Verified 01/05/25 09:46 Adhesive) Hydantoins AdvReac Mild Unknown Verified 01/05/25 09:46 hydrochlorothiazide AdvReac Mild Unknown Verified 01/05/25 09:46 labetalol AdvReac Mild Unknown Verified 01/05/25 09:46 methyl salicylate (From AdvReac Mild Unknown Verified 01/05/25 09:46 Mastisol Adhesive) mometasone furoate AdvReac Mild Unknown Verified 01/05/25 09:46 nifedipine AdvReac Mild Unknown Verified 09/08/24 09:46 nitrofurantoin AdvReac Mild Unknown Verified 09/08/24 09:46 phenytoin (From Dilantin) AdvReac Mild Unknown Verified 09/08/24 09:46 sertraline AdvReac Mild Unknown Verified 09/08/24 09:46 storax (From Mastisol AdvReac Mild Unknown Verified 09/08/24 09:46 Adhesive) valproic acid AdvReac Mild Unknown Verified 09/08/24 09:46 Exam Constitutional Documenting provider has reviewed patient's vital signs: yes Common normals: no apparent distress, oriented x3, healthy appearing, alert and well nourished General appearance: cooperative HENMT Common normals: normocephalic, hearing grossly normal bilaterally and moist oral mucous membranes Head and scalp: normocephalic Eye Common normals: PERRL Pupil: PERRL Neck & C-Spine Common normals: full ROM General: normal visual inspection Chest Common normals: inspection of chest normal Respiratory Common normals: normal respiratory effort, no retractions and no use of accessory muscles Back & Pelvis Lumbar spine/lower back: lumbar ROM normal, ROM limited, pain with ROM and straight leg raise negative bilaterally Other: pain with facet loading strength 5/5 in BLE sensation intact BLE Neuro Common normals: oriented x3 Sensorium/orientation: alert Psych Common normals: mental status grossly normal, thought process normal, cooperative, affect normal, speech normal and activity/motor behavior normal Speech: normal speech Thought process: normal thought process Results Additional Findings Additional findings: If on a controlled substance or opioids, I have checked an [place] report on this patient and there are no aberrancies noted in the prescribing history.??If on a controlled substance or opioid a drug screen was completed and reviewed within the last year, and if there has not been a drug screen completed we ordered one today to monitor higher risk, state monitored pain medication use. As part of providing excellent, safe, comprehensive care, the following was completed at our patient's visit: 1. A medication reconciliation and review to ensure accurate knowledge of current/active medications, including asking our patients to inform us about any [id number] medications or herbal remedies/nutritional supplements/alternative remedies. 2. A review to specifically ensure our patients have had annual screening for screening for depression, screening for tobacco use, and screening for unhealthy alcohol use. For concerning screenings had a discussion with the patient, provided patient education, and recommended follow-up with primary care provider when appropriate. If patient noted with a risk of falling, they received education on strength, gait, and balance training to prevent future risk of falling. Portions of this note may have been carried over from the previous visit and updated as appropriate. Please note this office utilizes paper charting in addition to the electronic medical record. A list of current medications, vitals, and PMH is available there as the clinical staff outside of myself do not have access to [facility] [facility] charting during the clinic day operations. As part of providing quality comprehensive care the current medications, vitals, and PMH were reviewed in the paper chart. Assessment and Plan Assessment and Plan (1) Lumbar stenosis with neurogenic claudication: Assessment and Plan: CECIL improved now 12% (2) Lumbar spondylosis: (3) Chronic use of opiate drug for therapeutic purpose: Plan pain well controlled post bilateral L5-S1 TFESI continue current medications continue HEP as tolerated, pt declining formal PT at this time f/u 3 months, sooner if needed
== END 2025-01-14 11:16 | disposition home or self-care (01) ==
LOC: PM 11:16
PROVIDERS: PCP Family Medicine; Visit Provider Nurse Practitioner
DX: M48.062 Spinal stenosis, lumbar region with neurogenic claudication (principal); M47.816 Spondylosis without myelopathy or radiculopathy, lumbar region; Z79.891 Long term (current) use of opiate analgesic
CPT/HCPCS: G0463